=== PATIENT | male | born 1955 | race Caucasian/White ===

== ENCOUNTER 2023-05-12 13:13 | Emergency (ER) | payer OTHER, SELFPAY ==
[2023-05-12 13:14] VITALS: BP 160/93; PULSE 69; RESP 18; TEMP 36.7; O2SAT 95; BMI 30.8
--- NOTE | 2023-05-12 13:26 | CT_ITS ---
The [address] [address] Patient Name: GÓMEZ CORTES MRN: [id number] date: 1955 Sex: M Assigned Patient Location: ER Current Patient Location: ER Accession/Order Number: [id number] Exam Date: 05/12/2023 13:37 Report Date: 05/12/2023 14:21 At the request of: AMBIKA YI Procedure: CT thoracic spine wo con EXAMINATION: CT thoracic spine wo con, CT lumbar spine wo con HISTORY: pain, fall COMPARISON: No relevant comparison available. TECHNIQUE: Axial, Coronal, and Sagittal images were created without IV contrast. Dose reduction techniques were achieved by using automated exposure control and/or adjustment of mA and/or kV according to patient size and/or use of iterative reconstruction technique. FINDINGS: VERTEBRAL BODIES: Nondisplaced fracture of right transverse process of L1 with callus formation at the margins. FACET JOINTS: Moderate degenerative facet arthropathy involving most of lumbar spine; marked at its L4-5. No disruption or abnormal widening. DISCS: L3-4 moderate narrowing with large posterior disc-osteophyte complex causing marked central canal and moderate right foramen narrowing. L4-5 moderate narrowing with large posterior disc-osteophyte complex along with marked degenerative facet arthropathy causing marked central canal and bilateral foramen narrowing. L5-S1 mild diffuse disc bulging in combination with facet arthropathy causing moderate bilateral foramen narrowing. CENTRAL CANAL: No evidence of hemorrhage. PARASPINAL AREA: No visible mass. IMPRESSION: 1. Acute versus subacute nondisplaced fracture of L1 right transverse process. 2. Multilevel lumbar degenerative disc disease and facet arthropathy resulting in moderate marked central canal and foramen narrowing. 3. Multilevel mild degenerative changes of thoracic spine. Electronically authenticated by: KELL BLANDON Date: 05/12/2023 14:21
--- NOTE | 2023-05-12 13:26 | CT_ITS ---
The [address] [address] Patient Name: GÓMEZ CORTES MRN: [id number] date: 1955 Sex: M Assigned Patient Location: ER Current Patient Location: ER Accession/Order Number: [id number] Exam Date: 05/12/2023 13:37 Report Date: 05/12/2023 14:21 At the request of: AMBIKA YI Procedure: CT lumbar spine wo con EXAMINATION: CT thoracic spine wo con, CT lumbar spine wo con HISTORY: pain, fall COMPARISON: No relevant comparison available. TECHNIQUE: Axial, Coronal, and Sagittal images were created without IV contrast. Dose reduction techniques were achieved by using automated exposure control and/or adjustment of mA and/or kV according to patient size and/or use of iterative reconstruction technique. FINDINGS: VERTEBRAL BODIES: Nondisplaced fracture of right transverse process of L1 with callus formation at the margins. FACET JOINTS: Moderate degenerative facet arthropathy involving most of lumbar spine; marked at its L4-5. No disruption or abnormal widening. DISCS: L3-4 moderate narrowing with large posterior disc-osteophyte complex causing marked central canal and moderate right foramen narrowing. L4-5 moderate narrowing with large posterior disc-osteophyte complex along with marked degenerative facet arthropathy causing marked central canal and bilateral foramen narrowing. L5-S1 mild diffuse disc bulging in combination with facet arthropathy causing moderate bilateral foramen narrowing. CENTRAL CANAL: No evidence of hemorrhage. PARASPINAL AREA: No visible mass. IMPRESSION: 1. Acute versus subacute nondisplaced fracture of L1 right transverse process. 2. Multilevel lumbar degenerative disc disease and facet arthropathy resulting in moderate marked central canal and foramen narrowing. 3. Multilevel mild degenerative changes of thoracic spine. Electronically authenticated by: KELL BLANDON Date: 05/12/2023 14:21
--- NOTE | 2023-05-12 13:27 | ED.GENADUL1 ---
HPI - General Adult General Chief complaint: Fall Time Seen by Provider: 05/12/23 13:21 Source: patient Mode of arrival: ambulance Limitations: no limitations History of Present Illness HPI narrative: 68 year old male presents to the ED for pain to his lower back s/p fall today. He reports he was leaning over putting water into his refrigerator. When he stood back up he fell backwards, landing on his buttocks. He did strike his head on a wall. Denies LOC, vision changes, weakness, dizziness. He has frequent falls which he relates to the chronic N/T of his feet s/p chemotherapy in 1998. Denies fever, chills, N/V. Denies change in bowel and/or bladder control. Denies saddle anesthesia, urinary sx. Denies pain to his head, neck, chest, abdomen, extremities. Rates his pain 4/10 at this time. Reports fatigue which happens after all of his falls. He typically falls 2-3 times per week. He ambulates with a walker at home. Related Data Home Medications Medication Instructions Recorded Confirmed atorvastatin 10 mg tablet 10 mg PO .hs 05/12/23 05/12/23 citalopram 40 mg tablet 40 mg PO DAILY 05/12/23 05/12/23 meclizine 25 mg tablet 25 mg PO DAILY PRN dizziness 05/12/23 05/12/23 phenobarbital 32.4 mg tablet 32.4 mg PO Q12H 05/12/23 05/12/23 phenytoin sodium extended 100 mg 100 mg PO Q8H 05/12/23 05/12/23 capsule Allergies Allergy/AdvReac Type Severity Reaction Status Date / Time gabapentin Allergy Intermediate Verified 05/12/23 13:17 oxycodone [From OxyContin] Allergy Intermediate Verified 05/12/23 13:17 phenytoin [From Dilantin] Allergy Intermediate Verified 05/12/23 13:17 Review of Systems ROS Constitutional Reports: fatigue; Denies: fever or chills Eyes Denies: change in vision Ears, nose, mouth, and throat Denies: neck pain or difficulty swallowing Cardiovascular Denies: chest pain, palpitations or lightheadedness Respiratory Denies: shortness of breath or cough Gastrointestinal Denies: abdominal pain, nausea, vomiting or diarrhea Musculoskeletal Reports: back pain; Denies: neck pain, extremity pain or extremity swelling Integumentary/Breast Denies: rash, redness, skin pain, skin tenderness, sores or changes in skin color Neurological Denies: headache, numbness in extremities, weakness in extremities, dizziness, vertigo, confusion or slurred speech Exam Constitutional Vital Signs - 24 hr 05/12/23 13:14 05/12/23 15:03 Temperature 98.1 F Pulse Rate [Monitor] 69 67 Respiratory Rate 18 18 Blood Pressure [Right Arm] 160/93 H 153/85 H Pulse Oximetry 95 95 Oxygen Delivery Method Room Air Room Air Documenting provider has reviewed patient's vital signs: yes Common normals: no apparent distress and oriented x3 Exam limitations: no altered mental status General appearance: cooperative; not ill appearing and not frail appearing [facility] Common normals: normocephalic and head/scalp atraumatic Head and scalp: no Reyes's sign and no scalp tenderness Mouth: lip normal and tongue normal Throat: posterior oropharynx normal Eye Common normals: PERRL, EOMs intact bilaterally, conjunctivae normal and no scleral icterus Neck & C-Spine Common normals: full ROM and supple General: normal visual inspection and trachea midline; no tenderness and no tracheal deviation Cervical spine: cervical ROM normal; no pain with cervical ROM, no cervical spine tenderness, no paracervical muscle tenderness and no paracervical muscle spasm Chest Chest: symmetrical chest wall rise Respiratory Common normals: normal respiratory effort Cardio Common normals: regular rate GI Common normals: soft to palpation and non-tender Back & Pelvis Common normals: thoracic and lumbar spine normal to inspection Thoracic spine/upper back: paraspinal muscle tenderness; no thoracic spinal tenderness Lumbar spine/lower back: paraspinal muscle tenderness; no lumbar spinal tenderness Sacrum: no ecchymosis, no erythema and no tenderness Coccyx: no swelling and no tenderness Extremity Common normals: full ROM and normal capillary refill Neuro Common normals: oriented x3, CN's II-XII intact bilaterally and moves all extremities Sensorium/orientation: awake and alert Speech: speech normal Course Vital Signs Vital signs: Vital Signs Temperature 98.1 F 05/12/23 13:14 Pulse Rate 69 05/12/23 13:14 Respiratory Rate 18 05/12/23 13:14 Blood Pressure 160/93 H 05/12/23 13:14 Pulse Oximetry 95 06/22/23 13:14 Oxygen Delivery Method Room Air 05/12/23 13:14 Temperature 98.1 F 05/12/23 13:14 Pulse Rate 67 05/12/23 15:03 Respiratory Rate 18 05/12/23 15:03 Blood Pressure 153/85 H 05/12/23 15:03 Pulse Oximetry 95 05/12/23 15:03 Oxygen Delivery Method Room Air 05/12/23 15:03 Medical Decision Making MDM Narrative Medical decision making narrative: CT scans of the thoracic and lumbar spines were completed. Results showed an acute versus subacute nondisplaced fracture of L1 right transverse process; degenerative changes. Findings were discussed with the patient. He was given a copy of his imaging report. He was ambulatory with a walker in the ED prior to discharge. He has an orthopedist for follow up. He was encouraged to follow up with his orthopedist and pcp for a recheck, further evaluation and treatment. He reported he has medication for his discomfort at home. Imaging Data CT thoracic and lumbar spine: Radiologist's impression: Procedure:? CT lumbar spine wo con ? EXAMINATION: CT thoracic spine wo con, CT lumbar spine wo con ? HISTORY: pain, fall ? COMPARISON: No relevant comparison available. ? TECHNIQUE: Axial, Coronal, and Sagittal images were created without IV contrast. Dose reduction techniques were achieved by using automated exposure control and/or adjustment of mA and/or kV according to patient size and/or use ? of iterative reconstruction technique. ? FINDINGS: VERTEBRAL BODIES: Nondisplaced fracture of right transverse process of L1 with ? callus formation at the margins. FACET JOINTS: Moderate degenerative facet arthropathy involving most of lumbar ? spine; marked at its L4-5. No disruption or abnormal widening. DISCS: L3-4 moderate narrowing with large posterior disc-osteophyte complex causing marked central canal and moderate right foramen narrowing. L4-5 moderate narrowing with large posterior disc-osteophyte complex along with marked degenerative facet arthropathy causing marked central canal and bilateral foramen narrowing. L5-S1 mild diffuse disc bulging in combination with facet arthropathy causing moderate bilateral foramen narrowing. CENTRAL CANAL: No evidence of hemorrhage. PARASPINAL AREA: No visible mass. ? IMPRESSION: ? 1. Acute versus subacute nondisplaced fracture of L1 right transverse process. 2. Multilevel lumbar degenerative disc disease and facet arthropathy resulting ? in moderate marked central canal and foramen narrowing. 3. Multilevel mild degenerative changes of thoracic spine. ? ? Electronically authenticated by: LOLA BLANDON ? Date: 05/12/2023? 14:21 Procedure:? CT thoracic spine wo con ? EXAMINATION: CT thoracic spine wo con, CT lumbar spine wo con ? HISTORY: pain, fall ? COMPARISON: No relevant comparison available. ? TECHNIQUE: Axial, Coronal, and Sagittal images were created without IV contrast. Dose reduction techniques were achieved by using automated exposure control and/or adjustment of mA and/or kV according to patient size and/or use ? of iterative reconstruction technique. ? FINDINGS: VERTEBRAL BODIES: Nondisplaced fracture of right transverse process of L1 with ? callus formation at the margins. FACET JOINTS: Moderate degenerative facet arthropathy involving most of lumbar ? spine; marked at its L4-5. No disruption or abnormal widening. DISCS: L3-4 moderate narrowing with large posterior disc-osteophyte complex causing marked central canal and moderate right foramen narrowing. L4-5 moderate narrowing with large posterior disc-osteophyte complex along with marked degenerative facet arthropathy causing marked central canal and bilateral foramen narrowing. L5-S1 mild diffuse disc bulging in combination with facet arthropathy causing moderate bilateral foramen narrowing. CENTRAL CANAL: No evidence of hemorrhage. PARASPINAL AREA: No visible mass. ? IMPRESSION: ? 1. Acute versus subacute nondisplaced fracture of L1 right transverse process. 2. Multilevel lumbar degenerative disc disease and facet arthropathy resulting ? in moderate marked central canal and foramen narrowing. 3. Multilevel mild degenerative changes of thoracic spine. ? ? Electronically authenticated by: LOLA BLANDON ? Date: 05/12/2023? 14:21 Discharge Plan Discharge Chief Complaint: Fall Clinical Impression: Back pain, Fall, Lumbar transverse process fracture Patient Disposition: Home, Self-Care Time of Disposition Decision: 14:51 Condition: Good Mode of Transportation: Private Vehicle Prescriptions / Home Meds: No Action atorvastatin 10 mg tablet 10 mg PO .hs citalopram 40 mg tablet 40 mg PO DAILY meclizine 25 mg tablet 25 mg PO DAILY PRN (Reason: dizziness) phenobarbital 32.4 mg tablet 32.4 mg PO Q12H phenytoin sodium extended 100 mg capsule 100 mg PO Q8H Instructions: Acute Low Back Pain (ED), Transverse Process Fracture (ED) Additional Instructions: Follow up with your orthopedist: Dr. Arcadio Zaldivar. Stand Alone Forms: Portal Instructions Referrals: Jignesh Manjarrez MD [Primary Care Provider] - 1 week Discharge Date/Time: 05/12/23 15:13
--- NOTE | 2023-05-12 14:40 | PC.NURSE ---
pt ambulated down hallway and back from room with walkeer pt states he uses walker at home
[2023-05-12 15:03] VITALS: BP 153/85; PULSE 67; RESP 18; O2SAT 95
== END 2023-05-12 15:13 | disposition home or self-care (01) ==
PROVIDERS: Emergency Provider Emergency Medicine; PCP Family Medicine
DX: S32.019A Unspecified fracture of first lumbar vertebra, initial encounter for closed fracture (principal); W19.XXXA Unspecified fall, initial encounter; M54.9 Dorsalgia, unspecified; Z79.899 Other long term (current) drug therapy; Z91.81 History of falling
CPT/HCPCS: 72128; 72131; 99284

== ENCOUNTER 2023-05-14 18:54 | Emergency (ER) | payer OTHER, SELFPAY ==
[2023-05-14 18:56] VITALS: BP 157/86; PULSE 66; RESP 20; TEMP 37.1; O2SAT 92; BMI 37.0
--- NOTE | 2023-05-14 19:06 | XR_ITS ---
The [address] [address] Patient Name: GÓMEZ CORTES MRN: [id number] date: 1955 Sex: M Assigned Patient Location: ER Current Patient Location: ED.MAIN Accession/Order Number: [id number] Exam Date: 05/14/2023 19:35 Report Date: 05/14/2023 20:43 At the request of: PORTER SCOTT Procedure: XR clavicle RT IMAGES REVIEWED: XR shoulder RT min 2V, XR clavicle RT COMPARISON: None available. CLINICAL INDICATION: right shoulder pain, fall FINDINGS/IMPRESSION: 1. No evidence of acute osseous abnormality of the right shoulder or right clavicle. 2. Osteopenia. Mild-moderate degenerative change of the right AC joint and right glenohumeral joint. Electronically authenticated by: ORLANDO DICKINSON Date: 05/14/2023 20:43
--- NOTE | 2023-05-14 19:06 | XR_ITS ---
The [address] [address] Patient Name: GÓMEZ CORTES MRN: [id number] date: 1955 Sex: M Assigned Patient Location: ER Current Patient Location: ED.MAIN Accession/Order Number: [id number] Exam Date: 05/14/2023 19:35 Report Date: 05/14/2023 20:43 At the request of: PORTER SCOTT Procedure: XR shoulder RT min 2V IMAGES REVIEWED: XR shoulder RT min 2V, XR clavicle RT COMPARISON: None available. CLINICAL INDICATION: right shoulder pain, fall FINDINGS/IMPRESSION: 1. No evidence of acute osseous abnormality of the right shoulder or right clavicle. 2. Osteopenia. Mild-moderate degenerative change of the right AC joint and right glenohumeral joint. Electronically authenticated by: ORLANDO DICKINSON Date: 05/14/2023 20:43
[2023-05-14] MEDS: IBUPROFEN 400 MG TABLET 800 MG PO (20:05)
--- NOTE | 2023-05-14 20:14 | PC.NURSE ---
Patient holding arm across his chest. C/O right shoulder pain. Pulse palpated circulation and sensation intact.
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
[2023-05-14 20:53] VITALS: BP 135/76; PULSE 68; RESP 16; O2SAT 95
== END 2023-05-14 21:18 | disposition home or self-care (01) ==
PROVIDERS: Emergency Provider Emergency Medicine; PCP Family Medicine
DX: M25.511 Pain in right shoulder (principal); Z79.899 Other long term (current) drug therapy; Z87.891 Personal history of nicotine dependence
CPT/HCPCS: 73000; 73030; 99284

== ENCOUNTER 2023-06-13 15:04 | Outpatient (OUT) | payer OTHER, SELFPAY ==
--- NOTE | 2023-06-13 | MR_ITS ---
The [address] [address] Patient Name: GÓMEZ CORTES MRN: [id number] date: 1955 Sex: M Assigned Patient Location: MRI Current Patient Location: Accession/Order Number: [id number] Exam Date: 06/13/2023 15:10 Report Date: 06/14/2023 11:42 At the request of: IMELDA THOMPSON Procedure: MR lumbar spine wo con EXAM: MR lumbar spine wo con REASON FOR EXAM: ACUTE MIDLINE LOW BACK PAIN WITHOUT SCIATICA. TECHNIQUE: Multiplanar, multisequence imaging of the lumbar spine was performed without contrast COMPARISON: CT scan 05/12/2023. FINDINGS: 5 nonrib-bearing lumbar vertebrae. Normal lumbar lordosis without significant listhesis. Vertebral body heights are maintained. No acute or aggressive osseous abnormality identified. The visualized bony pelvis is congruent with mild osteoarthritis the sacroiliac joints. Limited evaluation of the abdominopelvic viscera is without acute or suspicious abnormality. L1-L2: Mild broad-based disc bulge with flattening the ventral thecal sac. No severe spinal canal stenosis. No significant neural foraminal stenosis. L2-L3: Minimal broad-based disc bulge with flattening of ventral thecal sac. No severe spinal canal or neural foraminal stenosis. L3-L4: Diffuse loss of normal intervertebral disc space height and signal. Broad-based disc bulge with flattening of ventral thecal sac. Fissure is noted. Mild to moderate spinal canal stenosis when combined with ligamentum flavum hypertrophy. There is more focal right foraminal lateral protrusion. Moderate to severe bilateral neural foraminal stenosis, right greater than left secondary to disc osteophyte complex and facet arthropathy. L4-L5: Broad-based disc bulge with minimal spinal canal stenosis. Moderate to severe bilateral neural foraminal stenosis secondary to disc osteophyte complex and facet arthropathy. L5-S1: Broad-based disc bulge with mild spinal canal stenosis. There is possible mild compression of the traversing left S1 nerve root. Severe bilateral neural foraminal stenosis secondary to disc osteophyte complex and facet arthropathy. MR/MR lumbar spine wo con IMPRESSION: 1. Moderate to severe multilevel degenerative disc disease and facet arthropathy, most significant at the L3-L4 through L5-S1 levels as described above. Electronically authenticated by: KATHARINE DORMAN Date: 06/14/2023 11:42
== END 2023-06-13 15:05 | disposition home or self-care (01) ==
LOC: MRI 15:04
PROVIDERS: PCP Family Medicine; Visit Provider Personal Emergency Response Attendant
DX: M54.50 Low back pain, unspecified (principal)
CPT/HCPCS: 72148

== ENCOUNTER 2023-06-20 14:00 | Emergency (ER) | payer OTHER, SELFPAY ==
[2023-06-20 14:04] VITALS: BP 122/78; PULSE 74; RESP 20; TEMP 36.7; O2SAT 92; BMI 36.8
--- NOTE | 2023-06-20 14:06 | XR_ITS ---
The [address] [address] Patient Name: GÓMEZ CORTES MRN: [id number] date: 1955 Sex: M Assigned Patient Location: ER Current Patient Location: ER Accession/Order Number: [id number] Exam Date: 06/20/2023 14:20 Report Date: 06/20/2023 14:44 At the request of: SCARLET GREGORY Procedure: XR chest 1V EXAMINATION: XR chest 1V HISTORY: fall COMPARISON: XR chest 07/21/2021 FINDINGS: LUNGS: Dense opacities partially obscuring the right lung base, greatest within the lateral right lung base. Numerous surgical clips projecting over right hilum. VASCULATURE: No increased pulmonary vasculature. PLEURA: No pneumothorax, effusion, or pleural thickening. CARDIAC: No cardiomegaly or cardiac silhouette abnormality. MEDIASTINUM: No visible mass or adenopathy. BONES: Mechanical fusion of lower cervical spine. Screw within left glenoid rim from prior repair. OTHER: Negative. XR/XR chest 1V IMPRESSION: 1. Partial opacification right lung base; pneumonia versus pleural effusion versus mass versus atelectasis. Consider follow-up CT chest with IV contrast for further evaluation. Electronically authenticated by: KELL BLANDON Date: 06/20/2023 14:44
--- NOTE | 2023-06-20 14:06 | CT_ITS ---
[address] [address] Patient Name: GÓMEZ CORTES MRN: [id number] date: 1955 Sex: M Assigned Patient Location: ER Current Patient Location: ER Accession/Order Number: [id number] Exam Date: 06/20/2023 14:43 Report Date: 06/20/2023 15:11 At the request of: SCARLET GREGORY Procedure: CT cervical spine wo con EXAM: CT cervical spine wo con; [id number] REASON FOR EXAM: fall COMPARISON: CT cervical spine 06/16/2021. TECHNIQUE: Helical CT images of the cervical spine were obtained without contrast. Multiplanar reformats generated at the scanner. Dose reduction technique used: Automated exposure control and/or adjustment of the mA and/or kV according to patient size and/or use of iterative reconstruction technique. FINDINGS: Osseous: -No acute fracture or traumatic spondylolisthesis. -Posterior cervical fusion from C3 through C5 and anterior cervical fusion from C5 through C7. The fusion hardware is intact and similar in alignment compared with 06/16/2021. Lucency at the bone hardware interface along the left posterior fusion screw at C5 (series 7 image 29), similar compared with 06/16/2021. -Moderate spondylosis at the unfused C2-C3 and C7-T1, similar. 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 -No suspicious osseous lesion. Paraspinous soft tissues: -No acute abnormality. Visualized lung apices: -Clear. -No pneumothorax within the [id number]-apiv. CT/CT cervical spine wo con IMPRESSION: 1. No acute traumatic abnormality of the cervical spine. 2. Anterior and posterior cervical fusion hardware is intact and similar compared with 2020. Electronically authenticated by: JEANINE DUKE Date: 06/20/2023 15:11
--- NOTE | 2023-06-20 14:07 | CT_ITS ---
The [address] [address] Patient Name: GÓMEZ CORTES MRN: [id number] date: 1955 Sex: M Assigned Patient Location: ER Current Patient Location: Accession/Order Number: [id number] Exam Date: 06/20/2023 14:43 Report Date: 06/20/2023 15:04 At the request of: SCARLET GREGORY Procedure: CT head/brain wo con EXAM: CT head/brain wo con CLINICAL INDICATION: fall COMPARISON: CT head 06/16/2021. TECHNIQUE: Axial CT images of the brain were obtained without contrast. Coronal and sagittal reformats were obtained. Dose reduction techniques were achieved by using automated exposure control and/or adjustment of mA and/or kV according to patient size and/or use of iterative reconstruction technique. FINDINGS: No intracranial hemorrhage, extra-axial fluid collection, hydrocephalus, midline shift, or acute large vessel territory infarction. No other mass effect. Patchy periventricular and subcortical hypoattenuation is likely on the basis of chronic microvascular angiopathic changes. Mild to moderate symmetric global volume loss without lobar predominance. Commensurate prominence of the ventricular system. Basal cisterns are patent. No calvarial fracture. Normal soft tissues. Paranasal sinuses and mastoid air cells are well-aerated. CT/CT head/brain wo con IMPRESSION: No acute intracranial process. No substantial change since 06/16/2021. Electronically authenticated by: JERAMY SOMMERS Date: 06/20/2023 15:04
--- NOTE | 2023-06-20 14:14 | PC.NURSE ---
pt placed in c-collar at this time. pt denies any symptoms besides upper back pain from hitting toilet paper roll. denies LOC. AxOx4 at this time
[2023-06-20 14:22] LABS: Basophils Absolute Auto 0.1 10^3/uL (0.0-0.1); Basophils Percent Auto 0.9 % (0.2-2.0); Eosinophils Absolute Auto 0.3 10^3/uL (0.0-0.7); Eosinophils Percent Auto 4.7 % (0.9-7.0); Hematocrit 42.2 % (42.0-54.0); Hemoglobin 14.3 g/dL (14.0-18.0); Immature Granulocytes Abs Auto 0.03 10^3/uL (0.00-0.03); Immature Granulocytes Pct Auto 0.5 % (0.0-0.5); Lymphocytes Percent Auto 15.6 % (20.5-60.0); Mean Corpuscular HGB Conc 33.9 g/dL (29.9-35.2); Mean Corpuscular Volume 97.5 fL (80.0-94.0); Mean Platelet Volume 9.7 fL (9.5-13.5); Monocytes Absolute Auto 0.5 10^3/uL (0.3-0.8); Monocytes Percent Auto 8.1 % (1.7-12.0); Neutrophils Absolute Auto 4.4 10^3/uL (1.4-6.5); Neutrophils Percent Auto 70.2 % (43.0-75.0); Platelet Count 186 10^3/uL (150-450); Red Blood Count 4.33 10^6/uL (4.70-6.10); Red Cell Distribution Width 12.8 % (11.0-15.0); White Blood Count 6.3 10^3/uL (4.0-11.0)
[2023-06-20 14:42] LABS: Alanine Aminotransferase 24 U/L (16-63); Albumin Globulin Ratio 0.7; Albumin Level 3.4 g/dL (3.4-5.0); Alkaline Phosphatase 196 U/L (46-116); Aspartate Amino Transferase 20 U/L (15-37); BUN Creatinine Ratio 18.8; Bilirubin Total 0.4 mg/dL (0.2-1.0); Calcium 8.7 mg/dL (8.5-10.1); Carbon Dioxide 26.9 mmol/L (21.0-32.0); Chloride 100 mmol/L (98-107); Estimated GFR (African America >60 (>=60); Estimated GFR (Non-African Ame >60 (>=60); Globulin 4.7 g/dL; Glucose 136 mg/dL (74-106); Potassium 3.9 mmol/L (3.5-5.1); Sodium 133 mmol/L (136-145); Total Protein 8.1 g/dL (6.4-8.2)
[2023-06-20 14:43] LABS: Creatine Kinase 57 U/L (39-308); Troponin I High Sensitivity 6.8 pg/mL (4.0-76.1)
--- NOTE | 2023-06-20 16:44 | ED.GENADUL1 ---
HPI - General Adult General Chief complaint: Fall Stated complaint: FALL- LOWER BACK PAIN/L HIP/SHOULDER BLADES Time Seen by Provider: 06/20/23 14:06 Source: patient Mode of arrival: ambulance Limitations: no limitations History of Present Illness HPI narrative: Patient is a 68-year-old male who is coming in by EMS after a mechanical fall at home. patient uses a walker. Patient falls frequently at home. Patient stated that his feet got caught up in a rug at home, and patient twisting and fell backwards hitting the back into a wall hitting the back of his head into the wall as well. Patient landed slightly on his left hip as well and left elbow. Patient's complaining of left elbow pain, left hip pain, headache, close head injury, and acute on chronic neck pain. Patient has his cervical spine fused. Patient had a mechanical fall, he did not pass out. No loss of consciousness. Patient is not on any blood thinner. Patient arrived in no cervical collar by EMS staff, cervical collar was placed when patient was placed into room 6. Patient has no chest pain or shortness of breath. Patient's pain to his left elbow and left hip have improved since he was at home. Patient had a hard time getting off the ground at home and this is why called EMS. Patient was at home with . . All systems are negative except as noted/marked. All systems reviewed and otherwise negative. . Nurses note and vital signs reviewed and patient is not hypoxic. General: The patient appears well and in no apparent distress. Patient is resting comfortably on cart. Patient is not toxic, lethargic, or listless Skin: Warm, dry, no pallor noted. There is no rash noted. No petechiae, purpura. minor abrasion to left elbow, no skin tears or laceration. Head: Normocephalic, atraumatic, patient was placed in a cervical collar. Eye: Normal conjunctiva, no drainage, EOMI. PERRL Ears, Nose, Mouth, and Throat: oral mucosa is moist. Nares patent. Mouth without vesicles. Cardiovascular: Regular Rate and Rhythm, no murmur, gallop, rub Respiratory: Patient is in no distress, no accessory muscle use, lungs are clear to auscultation, no wheezing, rales or rhonchi Back: non-tender, no CVA tenderness bilaterally to percussion. No CT LS midline pain GI: soft, no tenderness to palpation, no masses appreciated. No rebound, guarding, or rigidity noted. No flank pain bilateral, No distention Musculoskeletal: Patient has full range of motion of all of the extremities Including his left elbow and left hip with minimal pain.patient has full flexion and extension supination pronation to his left elbow. Patient has minimal pain with internal/external rotation of his left hip, full flexion-extension with minimal pain. No x-rays indicated. Patient states his pain is much better now than what it was a home. No intervention has been done except time. Otherwise no motor, sensory, or focal neurological deficits Neurological: A&O x3, normal speech Psychiatric: Cooperative Related Data Home Medications Medication Instructions Recorded Confirmed atorvastatin 10 mg tablet 10 mg PO .hs 05/12/23 05/12/23 citalopram 40 mg tablet 40 mg PO DAILY 05/12/23 05/12/23 meclizine 25 mg tablet 25 mg PO DAILY PRN dizziness 05/12/23 05/12/23 phenobarbital 32.4 mg tablet 32.4 mg PO Q12H 05/12/23 05/12/23 phenytoin sodium extended 100 mg 100 mg PO Q8H 05/12/23 05/12/23 capsule Allergies Allergy/AdvReac Type Severity Reaction Status Date / Time gabapentin Allergy Intermediate Verified 05/12/23 13:17 oxycodone [From OxyContin] Allergy Intermediate Verified 05/12/23 13:17 phenytoin [From Dilantin] Allergy Intermediate Verified 05/12/23 13:17 PFSH PFSH Social History Smoking status: Former smoker Exam Constitutional Vital Signs, click to edit/add: Last Vital Signs Temp 98.1 F 06/20/23 14:04 Pulse 74 06/20/23 14:04 Resp 20 06/20/23 14:04 BP 122/78 06/20/23 14:04 Pulse Ox 92 L 06/20/23 14:04 O2 Del Method Room Air 06/20/23 14:04 Course Vital Signs Vital signs: Vital Signs Temperature 98.1 F 06/20/23 14:04 Pulse Rate 74 06/20/23 14:04 Respiratory Rate 20 06/20/23 14:04 Blood Pressure 122/78 06/20/23 14:04 Pulse Oximetry 92 L 06/20/23 14:04 Oxygen Delivery Method Room Air 06/20/23 14:04 Temperature 98.1 F 06/20/23 14:04 Pulse Rate 74 06/20/23 14:04 Respiratory Rate 20 06/20/23 14:04 Blood Pressure 122/78 06/20/23 14:04 Pulse Oximetry 92 L 06/20/23 14:04 Oxygen Delivery Method Room Air 06/20/23 14:04 Medical Decision Making MDM Narrative Medical decision making narrative: Patient ambulated well at discharge with a walker. Patient and understand any follow-up with PCP in office staff for additional help with possible placement into assisted living secondary to a fall risk at home. CT of the brain, cervical spine showed no acute findings. Patient's cardiac workup shows no acute findings. Patient did not require any x-ray to left hip or left elbow because he had full range of motion of those joints with minimal pain. Patient did feel better in the Emergency Room than he did when he is initially arrived in the Emergency Room compared at home and had fallen. No questions at discharge. Patient did not require any pain medication in the Emergency Room today. Lab Data Lab results reviewed: Yes I reviewed the patient's lab results Labs: Lab Results 06/20/23 Range/Units 14:10 WBC 6.3 (4.0-11.0) 10^3/uL RBC 4.33 L (4.70-6.10) 10^6/uL Hgb 14.3 (14.0-18.0) g/dL Hct 42.2 (42.0-54.0) % MCV 97.5 H (80.0-94.0) fL MCH 33.0 (25.9-34.0) pg MCHC 33.9 (29.9-35.2) g/dL RDW 12.8 (11.0-15.0) % Plt Count 186 (150-450) 10^3/uL MPV 9.7 (9.5-13.5) fL Neut % (Auto) 70.2 (43.0-75.0) % Lymph % (Auto) 15.6 L (20.5-60.0) % [place] % (Auto) 8.1 (1.7-12.0) % Eos % (Auto) 4.7 (0.9-7.0) % Baso % (Auto) 0.9 (0.2-2.0) % Neut # (Auto) 4.4 (1.4-6.5) 10^3/uL Lymph # (Auto) 1.0 L (1.2-3.8) 10^3/uL [place] # (Auto) 0.5 (0.3-0.8) 10^3/uL Eos # (Auto) 0.3 (0.0-0.7) 10^3/uL Baso # (Auto) 0.1 (0.0-0.1) 10^3/uL Abs Immat Gran (auto) 0.03 (0.00-0.03) 10^3/uL Imm/Tot Granulo (auto) 0.5 (0.0-0.5) % Sodium 133 L (136-145) mmol/L Potassium 3.9 (3.5-5.1) mmol/L Chloride 100 (98-107) mmol/L Carbon Dioxide 26.9 (21.0-32.0) mmol/L Anion Gap 10.0 BUN 16.0 (7.0-18.0) mg/dL Creatinine 0.85 (0.70-1.30) mg/dL Est GFR ( Amer) >60 (>=60) Est GFR (Non-Af Amer) >60 (>=60) BUN/Creatinine Ratio 18.8 Glucose 136 H (74-106) mg/dL Calcium 8.7 (8.5-10.1) mg/dL Magnesium 2.0 (1.8-2.4) mg/dL Total Bilirubin 0.4 (0.2-1.0) mg/dL AST 20 (15-37) U/L ALT 24 (16-63) U/L Alkaline Phosphatase 196 H (46-116) U/L Total Creatine Kinase 57 (39-308) U/L Troponin I High Sens 6.8 (4.0-76.1) pg/mL Total Protein 8.1 (6.4-8.2) g/dL Albumin 3.4 (3.4-5.0) g/dL Globulin 4.7 g/dL Albumin/Globulin Ratio 0.7 Lipase 94.0 (73.0-393.0) U/L Imaging Data CT scan - head: My impression: CT of the head, cervical spine, chest x-ray show no acute abnormality. Please see the official report. Discharge Plan Discharge Chief Complaint: Fall Clinical Impression: Back pain, Cervical pain (neck), Fall, Contusion of elbow, left, Contusion of hip, left Patient Disposition: Home, Self-Care Condition: Good Prescriptions / Home Meds: No Action atorvastatin 10 mg tablet 10 mg PO .hs citalopram 40 mg tablet 40 mg PO DAILY meclizine 25 mg tablet 25 mg PO DAILY PRN (Reason: dizziness) phenobarbital 32.4 mg tablet 32.4 mg PO Q12H phenytoin sodium extended 100 mg capsule 100 mg PO Q8H Instructions: Contusion in Adults (ED), Back Pain (ED), Fall Prevention (ED), Hip Contusion (ED), Neck Pain (ED) Additional Instructions: uses her walker. Be careful with ambulation and gait as discussed with you and your . Follow up with PCP Dr. Olguin and his office staff to help with insurance, possible placement in assisted living to make sure that you are safe and your is safe. Stand Alone Forms: Portal Instructions Referrals: Jignesh Manjarrez MD [Primary Care Provider] - 1 week Discharge Date/Time: 06/20/23 17:04
== END 2023-06-20 17:04 | disposition home or self-care (01) ==
PROVIDERS: Emergency Provider Emergency Medicine; PCP Family Medicine
DX: S50.02XA Contusion of left elbow, initial encounter (principal); S70.02XA Contusion of left hip, initial encounter; M54.2 Cervicalgia; M54.9 Dorsalgia, unspecified; W01.198A Fall on same level from slipping, tripping and stumbling with subsequent striking against other object, initial encounter; Z79.899 Other long term (current) drug therapy; Z87.891 Personal history of nicotine dependence
CPT/HCPCS: 36415; 70450; 71045; 72125; 80053; 81003; 82550; 83690; 83735; 84484; 85025; 96374; 99285

== ENCOUNTER 2023-09-01 17:02 | Emergency (ER) | payer OTHER, SELFPAY ==
[2023-09-01] VITALS (25 sets, daily range): BP systolic 110–132; BP diastolic 64–74; PULSE 67–89; RESP 12–24; TEMP 37.2; O2SAT 91–100; BMI 37.5
--- NOTE | 2023-09-01 17:07 | CT_ITS ---
[address] [address] Patient Name: GÓMEZ CORTES MRN: [id number] date: 1955 Sex: M Assigned Patient Location: ER Current Patient Location: Accession/Order Number: [id number] Exam Date: 09/01/2023 18:12 Report Date: 09/01/2023 18:44 At the request of: TARSHA COLE Procedure: CT angio chest EXAM: CT pulmonary angiogram of the chest using 98 mL of IV iodinated contrast. 3-D imaging was performed. Dose reduction technique used: Automated exposure control and/or adjustment of the mA and/or kV according to patient size and/or use of iterative reconstruction technique. REASON FOR EXAM: PE, shortness of breath COMPARISON: CT scan dated 06/09/2022 FINDINGS: No pulmonary emboli. No aortic dissection. No pneumothorax. No acute airspace opacities. No pleural effusion. No acute fractures. No concerning pulmonary nodules. No definite lymphadenopathy in the chest. Small amount scarring in the right mid and lower lung. Coronary atherosclerotic calcifications. Anterior mediastinal surgical clips. Mildly prominent right hilar lymph nodes may be reactive. Remainder unremarkable. CT/CT angio chest IMPRESSION: No pulmonary embolism or acute abnormalities in chest. Electronically authenticated by: CHELLE ROSARIO Date: 09/01/2023 18:44
--- NOTE | 2023-09-01 17:10 | ED.GENADUL1 ---
HPI - General Adult General Chief complaint: Chest Pain Stated complaint: chest pain Time Seen by Provider: 09/01/23 17:07 Source: patient Mode of arrival: ambulance History of Present Illness HPI narrative: patient is a 68-year-old male who presents to the emergency department by ambulance for the evaluation of shortness of breath that began abruptly after carrying a load of laundry up his stairs at his apartment complex. He states after walking to the top of the stairs carrying laundry, he felt warmth and discomfort in his chest, he thought that his sugar might be low so he ate a honey bun and drank a root beer. EMS was dispatched, patient states he feels wiped out. He has a remote history of cancer and chemotherapy, he does not currently have a port receive any cancer treatment. He denies any history of heart attack, chronic obstructive pulmonary disease, emphysema. He reports a family history of blood clots. He has chronic swelling to his lower extremities, worse on the right side. He denies any recent illness, fevers or upper respiratory symptoms. He reports improvement of his symptoms at this time Related Data Home Medications Medication Instructions Recorded Confirmed atorvastatin 10 mg tablet 10 mg PO .hs 05/12/23 05/12/23 citalopram 40 mg tablet 40 mg PO DAILY 05/12/23 05/12/23 meclizine 25 mg tablet 25 mg PO DAILY PRN dizziness 05/12/23 05/12/23 phenobarbital 32.4 mg tablet 32.4 mg PO Q12H 05/12/23 05/12/23 phenytoin sodium extended 100 mg 100 mg PO Q8H 05/12/23 05/12/23 capsule Allergies Allergy/AdvReac Type Severity Reaction Status Date / Time gabapentin Allergy Intermediate Verified 05/12/23 13:17 oxycodone [From OxyContin] Allergy Intermediate Verified 05/12/23 13:17 phenytoin [From Dilantin] Allergy Intermediate Verified 05/12/23 13:17 Review of Systems ROS Constitutional Denies: fever or chills Ears, nose, mouth, and throat Denies: throat pain Cardiovascular Reports: chest pain Respiratory Reports: shortness of breath; Denies: cough Gastrointestinal Denies: abdominal pain, nausea or vomiting Musculoskeletal Denies: back pain Integumentary/Breast Denies: rash Neurological Denies: headache Hematologic/Lymphatic Denies: easy bruising PFSH PFSH Social History Smoking status: Former smoker Exam Narrative Exam Narrative: Gen.: Awake, alert, in no distress Head: Normocephalic, atraumatic ENT: Moist mucous membranes Respiratory: No respiratory distress, lungs clear bilaterally; no wheezing or rhonchi. Patient speaks in full sentences, very talkative Cardio: Regular rate and rhythm Extremities: Moves extremities equally, no pitting edema Psych: Normal mood and affect Neuro: No focal neuro deficit Skin: Warm, dry, intact Constitutional Vital Signs, click to edit/add: Last Vital Signs Temp 99.0 F 09/01/23 17:03 Pulse 72 09/01/23 19:40 Resp 22 09/01/23 19:40 BP 126/69 09/01/23 19:30 Pulse Ox 95 09/01/23 19:40 O2 Del Method Room Air 09/01/23 17:03 Course Vital Signs Vital signs: Vital Signs Temperature 99.0 F 09/01/23 17:03 Pulse Rate 72 09/01/23 17:03 Respiratory Rate 18 09/01/23 17:03 Blood Pressure 110/69 09/01/23 17:03 Pulse Oximetry 97 09/01/23 17:03 Oxygen Delivery Method Room Air 09/01/23 17:03 Temperature 99.0 F 09/01/23 17:03 Pulse Rate 72 09/01/23 19:40 Respiratory Rate 22 09/01/23 19:40 Blood Pressure 126/69 09/01/23 19:30 Pulse Oximetry 95 09/01/23 19:40 Oxygen Delivery Method Room Air 09/01/23 17:03 Medical Decision Making MDM Narrative Medical decision making narrative: patient with no significant complaints of chest pain in the Emergency Room. EKG, lab studies are unremarkable. CT angioma of the chest was performed with no evidence of PE or other acute process. Repeat troponin was obtained and the patient is resting comfortably, 2nd troponin is normal. Patient was evaluated by attending physician and he stated that if the 2nd troponin was normal he would like to go home. I reevaluated the patient after the 2nd troponin came back normal, patient states he would like to go home and he will follow-up with his PCP. He is resting comfortably with stable vital signs. He had no crushing chest pain, diaphoresis, nausea or other worrisome symptoms associated with the shortness of breath that he had after exerting himself. He will follow closely with his PCP and return to the Emergency Room if symptoms change or worsen Medical Records Medical records reviewed: Yes I reviewed the patient's medical records Lab Data Lab results reviewed: Yes I reviewed the patient's lab results Labs: Lab Results 09/01/23 09/01/23 Range/Units 17:30 19:22 WBC 5.4 (4.0-11.0) 10^3/uL RBC 4.00 L (4.70-6.10) 10^6/uL Hgb 13.2 L (14.0-18.0) g/dL Hct 39.8 L (42.0-54.0) % MCV 99.5 H (80.0-94.0) fL MCH 33.0 (25.9-34.0) pg MCHC 33.2 (29.9-35.2) g/dL RDW 12.8 (11.0-15.0) % Plt Count 175 (150-450) 10^3/uL MPV 9.8 (9.5-13.5) fL Neut % (Auto) 67.0 (43.0-75.0) % Lymph % (Auto) 16.1 L (20.5-60.0) % [place] % (Auto) 10.8 (1.7-12.0) % Eos % (Auto) 4.8 (0.9-7.0) % Baso % (Auto) 0.9 (0.2-2.0) % Neut # (Auto) 3.6 (1.4-6.5) 10^3/uL Lymph # (Auto) 0.9 L (1.2-3.8) 10^3/uL [place] # (Auto) 0.6 (0.3-0.8) 10^3/uL Eos # (Auto) 0.3 (0.0-0.7) 10^3/uL Baso # (Auto) 0.1 (0.0-0.1) 10^3/uL Abs Immat Gran (auto) 0.02 (0.00-0.03) 10^3/uL Imm/Tot Granulo (auto) 0.4 (0.0-0.5) % PT 10.5 (9.0-11.6) sec INR 0.99 APTT 29.6 (22.3-36.2) sec Sodium 137 (136-145) mmol/L Potassium 3.8 (3.5-5.1) mmol/L Chloride 104 (98-107) mmol/L Carbon Dioxide 25.4 (21.0-32.0) mmol/L Anion Gap 11.4 BUN 13.0 (7.0-18.0) mg/dL Creatinine 1.00 (0.70-1.30) mg/dL Est GFR ( Amer) >60 (>=60) Est GFR (Non-Af Amer) >60 (>=60) BUN/Creatinine Ratio 13.0 Glucose 114 H (74-106) mg/dL Calcium 7.6 L (8.5-10.1) mg/dL Total Bilirubin 0.2 (0.2-1.0) mg/dL AST 21 (15-37) U/L ALT 27 (16-63) U/L Alkaline Phosphatase 159 H (46-116) U/L Troponin I High Sens 5.9 5.3 (4.0-76.1) pg/mL NT-Pro-B Natriuret Pep 45.0 (<=900.0) pg/mL Total Protein 7.3 (6.4-8.2) g/dL Albumin 3.3 L (3.4-5.0) g/dL Globulin 4.0 g/dL Albumin/Globulin Ratio 0.[address] scan - chest: Attestation: I have reviewed the pertinent imaging results. Radiologist's impression: Procedure: CT angio chest EXAM: CT pulmonary angiogram of the chest using 98 mL of IV iodinated contrast. 3-D imaging was performed. Dose reduction technique used: Automated exposure control and/or adjustment of the mA and/or kV according to patient size and/or use of iterative reconstruction technique. REASON FOR EXAM: PE, shortness of breath COMPARISON: CT scan dated 06/09/2022 FINDINGS: No pulmonary emboli. No aortic dissection. No pneumothorax. No acute airspace opacities. No pleural effusion. No acute fractures. No concerning pulmonary nodules. No definite lymphadenopathy in the chest. Small amount scarring in the right mid and lower lung. Coronary atherosclerotic calcifications. Anterior mediastinal surgical clips. Mildly prominent right hilar lymph nodes may be reactive. Remainder unremarkable. IMPRESSION: No pulmonary embolism or acute abnormalities in chest. Electronically authenticated by: CHELLE ROSARIO Date: 09/01/2023 18:44 ECG Data Attestation: I personally reviewed and interpreted this ECG as follows: (normal sinus rhythm at a rate of sixty-nine, first-degree AV block noted with no acute ST elevation or ectopy. Mild artifact noted. EKG reviewed by attending physician) Discharge Plan Discharge Chief Complaint: Chest Pain Clinical Impression: Exertional dyspnea Patient Disposition: Home, Self-Care Time of Disposition Decision: 20:23 Condition: Good Prescriptions / Home Meds: No Action atorvastatin 10 mg tablet 10 mg PO .hs citalopram 40 mg tablet 40 mg PO DAILY meclizine 25 mg tablet 25 mg PO DAILY PRN (Reason: dizziness) phenobarbital 32.4 mg tablet 32.4 mg PO Q12H phenytoin sodium extended 100 mg capsule 100 mg PO Q8H Instructions: Dyspnea (ED) Stand Alone Forms: Portal Instructions Referrals: Jignesh Manjarrez MD [Primary Care Provider] - 1 week
[2023-09-01] MEDS: ASPIRIN 81 MG TAB.CHEW 162 MG PO (17:36)
[2023-09-01 17:38] LABS: Basophils Absolute Auto 0.1 10^3/uL (0.0-0.1); Basophils Percent Auto 0.9 % (0.2-2.0); Eosinophils Absolute Auto 0.3 10^3/uL (0.0-0.7); Eosinophils Percent Auto 4.8 % (0.9-7.0); Hematocrit 39.8 % (42.0-54.0); Hemoglobin 13.2 g/dL (14.0-18.0); Immature Granulocytes Abs Auto 0.02 10^3/uL (0.00-0.03); Immature Granulocytes Pct Auto 0.4 % (0.0-0.5); Lymphocytes Absolute Auto 0.9 10^3/uL (1.2-3.8); Lymphocytes Percent Auto 16.1 % (20.5-60.0); Mean Corpuscular HGB Conc 33.2 g/dL (29.9-35.2); Mean Corpuscular Volume 99.5 fL (80.0-94.0); Mean Platelet Volume 9.8 fL (9.5-13.5); Monocytes Absolute Auto 0.6 10^3/uL (0.3-0.8); Monocytes Percent Auto 10.8 % (1.7-12.0); Neutrophils Absolute Auto 3.6 10^3/uL (1.4-6.5); Platelet Count 175 10^3/uL (150-450); Red Cell Distribution Width 12.8 % (11.0-15.0); White Blood Count 5.4 10^3/uL (4.0-11.0)
--- NOTE | 2023-09-01 17:47 | PC.NURSE ---
pt brought in by ems. patient was carrying his laundry up the stairs and suddenly became sob and had left sided chest pressure that radiates into left shoulder. when ems arrived patient states that he has numbness and tingling from the waist up and numbness in fingertips. ems crew was able to calm patient down and then patient said sob was improving. on arrival to ED patient sob had resolved and chest pressure was a 1/10.
[2023-09-01 17:58] LABS: Alanine Aminotransferase 27 U/L (16-63); Albumin Globulin Ratio 0.8; Albumin Level 3.3 g/dL (3.4-5.0); Alkaline Phosphatase 159 U/L (46-116); Anion Gap 11.4; Aspartate Amino Transferase 21 U/L (15-37); Bilirubin Total 0.2 mg/dL (0.2-1.0); Calcium 7.6 mg/dL (8.5-10.1); Carbon Dioxide 25.4 mmol/L (21.0-32.0); Chloride 104 mmol/L (98-107); Estimated GFR (African America >60 (>=60); Estimated GFR (Non-African Ame >60 (>=60); Glucose 114 mg/dL (74-106); Potassium 3.8 mmol/L (3.5-5.1); Sodium 137 mmol/L (136-145); Total Protein 7.3 g/dL (6.4-8.2); Troponin I High Sensitivity 5.9 pg/mL (4.0-76.1)
[2023-09-01 17:59] LABS: INR 0.99; Partial Thromboplastin Time 29.6 sec (22.3-36.2); Prothrombin Time 10.5 sec (9.0-11.6)
--- NOTE | 2023-09-01 19:04 | ECG_ITS ---
The [facility] Test Date: 2023-09-01 Pat Name: GÓMEZ CORTES Department: Room: - Gender: Male Vtc Technician: : 1955 Requested By: ADALID GONSALEZ Order Number: [id number] Reading MD: NOE ESCALANTE Measurements Intervals [place] Rate: 69 P: 34 W[place]: 210 QRS: 17 QRSD: 86 T: 54 QT: 410 QTc: 430 Interpretive Statements 1100 Sinus rhythm 2231 First degree AV block Baseline artifact 9150 abnormal ECG No previous ECG available for comparison Electronically Signed On 09-02-2023 6:56:28 EDT by NOE ESCALANTE
[2023-09-01 20:11] LABS: Troponin I High Sensitivity 5.3 pg/mL (4.0-76.1)
== END 2023-09-01 20:40 | disposition home or self-care (01) ==
PROVIDERS: Physician Assistant; Emergency Provider Emergency Medicine; PCP Family Medicine
DX: R06.09 Other forms of dyspnea (principal); Z79.899 Other long term (current) drug therapy; Z87.891 Personal history of nicotine dependence; Z85.9 Personal history of malignant neoplasm, unspecified
CPT/HCPCS: 36415; 71275; 80053; 83880; 84484; 85025; 85610; 85730; 93005; 99285; Q9967

== ENCOUNTER 2023-09-11 09:27 | Emergency (ER) | payer OTHER, SELFPAY ==
[2023-09-11 09:33] VITALS: BP 160/88; PULSE 71; RESP 18; TEMP 37.1; O2SAT 97; BMI 37.6
--- NOTE | 2023-09-11 10:19 | ED_ITS ---
HPI - Extremity Injury (Upper) General Chief Complaint: Extremity Injury, Upper Stated Complaint: UPPER EXTREMITY PAIN LEFT ARM Time Seen by Provider: 09/11/23 10:07 Source: patient Mode of arrival: Wheelchair Limitations: no limitations History of Present Illness HPI narrative: The patient presented to us after he had an IV placed almost 10 days ago for work-up for shortness of breath the patient according to his history the pain started after they placed an IV in his arm and he has been having pain in that side since that day There is no fever no chills but the patient feels the pain going up his arm to his shoulder No other complaint the patient tried some Tylenol at home that did not help Related Data Home Medications Medication Instructions Recorded Confirmed atorvastatin 10 mg tablet 10 mg PO .hs 05/12/23 05/12/23 citalopram 40 mg tablet 40 mg PO DAILY 05/12/23 05/12/23 meclizine 25 mg tablet 25 mg PO DAILY PRN dizziness 05/12/23 05/12/23 phenobarbital 32.4 mg tablet 32.4 mg PO Q12H 05/12/23 05/12/23 phenytoin sodium extended 100 mg 100 mg PO Q8H 05/12/23 05/12/23 capsule Previous Rx's Medication Instructions Recorded diclofenac sodium 50 mg 50 mg PO Q12H PRN pain #10 tabs 09/11/23 tablet,delayed release Allergies Allergy/AdvReac Type Severity Reaction Status Date / Time gabapentin Allergy Intermediate Verified 05/12/23 13:17 oxycodone [From OxyContin] Allergy Intermediate Verified 05/12/23 13:17 phenytoin [From Dilantin] Allergy Intermediate Verified 05/12/23 13:17 Review of Systems ROS Status of ROS 10 or more systems reviewed and unremarkable except as noted in history and below PFSH PFS Social History Smoking status: Former smoker Exam Narrative Exam Narrative: Nurses notes and vital signs reviewed and patient is not hypoxic. General: Well-appearing and in no apparent distress. Skin: Warm, dry, no pallor noted. No rash. Head: Normocephalic, atraumatic. Neck: Supple, non-tender. Eye: Pupils are equal, round and EOMI. No scleral icterus. Ears, Nose, Mouth, and Throat: TM are clear, no nasal mucosal hypertrophy. Oral mucosa is moist, no posterior oropharynx erythema, uvula is mid-line Cardiovascular: Regular Rate and Rhythm without murmur, gallop or rub. Respiratory: No accessory muscle use or respiratory distress. Lungs are clear to auscultation, no wheezing, rales or rhonchi Chest Wall: no tenderness Back: No midline thoracic or lumbar vertebral tenderness. No CVA tenderness Musculoskeletal: normal ROM, no calf or popliteal tenderness, in the left arm the patient have the site of IV access with the healing ecchymosis in the middle of the left forearm there is no induration there is no redness no hotness no s igns of infection the patient have a good radial pulse and there is no vascular injury with a good capillary refill there is no tenderness upon palpation of his arm up to his shoulder GI: Abdomen is soft, non-distended. Normal bowel sounds. No masses appreciated. No tenderness to palpation. No rebound, guarding, or rigidity noted. Neurological: A&O x4. No cranial nerve dysfunction observed. No truncal ataxia. Moves all extremities. Sensation intact. Psychiatric: Cooperative and interactive. Normal mood and affect. Constitutional Vital Signs, click to edit/add: Last Vital Signs Temp 98.8 F 09/11/23 09:33 Pulse 70 09/11/23 10:42 Resp 18 09/11/23 10:42 BP 158/68 H 09/11/23 10:42 Pulse Ox 98 09/11/23 10:42 O2 Del Method Room Air 09/11/23 09:33 Course Vital Signs Vital signs: Vital Signs Temperature 98.8 F 09/11/23 09:33 Pulse Rate 71 09/11/23 09:33 Respiratory Rate 18 09/11/23 09:33 Blood Pressure 160/88 H 09/11/23 09:33 Pulse Oximetry 97 09/11/23 09:33 Oxygen Delivery Method Room Air 09/11/23 09:33 Temperature 98.8 F 09/11/23 09:33 Pulse Rate 70 09/11/23 10:42 Respiratory Rate 18 09/11/23 10:42 Blood Pressure 158/68 H 09/11/23 10:42 Pulse Oximetry 98 09/11/23 10:42 Oxygen Delivery Method Room Air 09/11/23 09:33 MDM - Extremity Injury (Upper) MDM Narrative Medical decision making narrative: Right now the patient presentation is mostly secondary to simple phlebitis he was started on NSAIDs as well as cold compression and supportive care The patient is to follow up with primary care physician in next 2-3 days or to return to the emergency department should any of the signs or symptoms worsen or new symptoms develop. The patient agrees with the following Diagnosis and Treatment plan and the patient will be discharged home. Discharge Plan Discharge Chief Complaint: Extremity Injury, Upper Clinical Impression: Phlebitis Patient Disposition: Home, Self-Care Time of Disposition Decision: 10:26 Prescriptions / Home Meds: New diclofenac sodium 50 mg tablet,delayed release (DR/EC) 50 mg PO Q12H PRN (Reason: pain) Qty: 10 0RF No Action atorvastatin 10 mg tablet 10 mg PO .hs citalopram 40 mg tablet 40 mg PO DAILY meclizine 25 mg tablet 25 mg PO DAILY PRN (Reason: dizziness) phenobarbital 32.4 mg tablet 32.4 mg PO Q12H phenytoin sodium extended 100 mg capsule 100 mg PO Q8H Instructions: Superficial Thrombophlebitis (ED) Stand Alone Forms: Portal Instructions Referrals: Jignesh Manjarrez MD [Primary Care Provider] - 1 week Discharge Date/Time: 09/11/23 10:46
[2023-09-11] MEDS: KETOROLAC TROMETHAMINE 30 MG/ML VIAL IM (10:30)
[2023-09-11 10:42] VITALS: BP 158/68; PULSE 70; RESP 18; O2SAT 98
== END 2023-09-11 10:46 | disposition home or self-care (01) ==
PROVIDERS: Emergency Provider Emergency Medicine; PCP Family Medicine
DX: I80.8 Phlebitis and thrombophlebitis of other sites (principal); Z79.899 Other long term (current) drug therapy; Z87.891 Personal history of nicotine dependence
CPT/HCPCS: 96372; 99284

== ENCOUNTER 2023-09-20 16:50 | Emergency (ER) | payer OTHER, MEDICAID, SELFPAY ==
[2023-09-20 16:52] VITALS: BP 125/72; PULSE 70; RESP 18; TEMP 36.1; O2SAT 93; BMI 37.5
--- NOTE | 2023-09-20 17:31 | ED_ITS ---
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 Squad gave him fentanyl and Zofran. Hurts to move shoulder. Denies hitting his head. Denies swelling, temp or sensation changes Related Data Home Medications Medication Instructions Recorded Confirmed atorvastatin 10 mg tablet 10 mg PO .hs 05/12/23 05/12/23 citalopram 40 mg tablet 40 mg PO DAILY 05/12/23 05/12/23 meclizine 25 mg tablet 25 mg PO DAILY PRN dizziness 05/12/23 05/12/23 phenobarbital 32.4 mg tablet 32.4 mg PO Q12H 05/12/23 05/12/23 phenytoin sodium extended 100 mg 100 mg PO Q8H 05/12/23 05/12/23 capsule Previous Rx's Medication Instructions Recorded diclofenac sodium 50 mg 50 mg PO Q12H PRN pain #10 tabs 09/11/23 tablet,delayed release diclofenac sodium 1 % topical gel 2 g topical QID PRN pain 5 days 09/20/23 (Voltaren Arthritis Pain) #100 grams Allergies Allergy/AdvReac Type Severity Reaction Status Date / Time gabapentin Allergy Intermediate Verified 09/20/23 16:56 oxycodone [From OxyContin] Allergy Intermediate Verified 09/20/23 16:56 phenytoin [From Dilantin] Allergy Intermediate Verified 09/20/23 16:56 Review of Systems ROS Status of ROS 10 or more systems reviewed and unremarkable except as noted in history and below [facility] Social History Smoking status: Former smoker Exam Narrative Exam Narrative: General: alert, no distress, talking in full an complete sentences skin: warm, dry, intact head: normocephalic, atraumatic eyes: EOMI nose: nares patent neck: supple, trachea midline respiratory: non-labored extremities: FROM x 4, strength +5/5, tender to right trapezius, capillary refill intact, pulses intact neuro: A&Ox3 psych: appropriate mood and affect, cooperative Constitutional Vital Signs, click to edit/add: Last Vital Signs Temp 97 F L 09/20/23 16:52 Pulse 70 09/20/23 16:52 Resp 18 09/20/23 16:52 BP 125/72 09/20/23 16:52 Pulse Ox 93 L 09/20/23 16:52 O2 Del Method Room Air 09/20/23 16:52 Course Vital Signs Vital signs: Vital Signs Temperature 97 F L 09/20/23 16:52 Pulse Rate 70 09/20/23 16:52 Respiratory Rate 18 09/20/23 16:52 Blood Pressure 125/72 09/20/23 16:52 Pulse Oximetry 93 L 09/20/23 16:52 Oxygen Delivery Method Room Air 09/20/23 16:52 Temperature 97 F L 09/20/23 16:52 Pulse Rate 70 09/20/23 16:52 Respiratory Rate 18 09/20/23 16:52 Blood Pressure 125/72 09/20/23 16:52 Pulse Oximetry 93 L 09/20/23 16:52 Oxygen Delivery Method Room Air 09/20/23 16:52 MDM - Extremity Injury (Upper) MDM Narrative Medical decision making narrative: No acute findings on final read of x-ray. He will be prescribed Voltaren gel follow-up family doctor. afebrile, not tachypneic, not tachycardic, tolerating p.o., not hypoxic, non toxic appearing and ambulating at baseline and hemodynamically stable to be d/c. answered all questions. educated on SE of meds. pt in agreement with tx. educated when to return to ER. Discharge Plan Discharge Chief Complaint: Extremity Injury, Upper Clinical Impression: Contusion of right shoulder, initial encounter Patient Disposition: Home, Self-Care Time of Disposition Decision: 18:01 Condition: Good Mode of Transportation: Private Vehicle Prescriptions / Home Meds: New diclofenac sodium [Voltaren Arthritis Pain] 1 % gel 2 g topical QID PRN (Reason: pain) 5 Days Qty: 100 0RF Rx Instructions: apply to single elbow, wrist or hand; for hand includes palm/fingers/back of hand No Action atorvastatin 10 mg tablet 10 mg PO .hs citalopram 40 mg tablet 40 mg PO DAILY meclizine 25 mg tablet 25 mg PO DAILY PRN (Reason: dizziness) phenobarbital 32.4 mg tablet 32.4 mg PO Q12H phenytoin sodium extended 100 mg capsule 100 mg PO Q8H diclofenac sodium 50 mg tablet,delayed release (DR/EC) 50 mg PO Q12H PRN (Reason: pain) Qty: 10 0RF Instructions: Contusion in Adults (ED) Stand Alone Forms: Portal Instructions Referrals: Jignesh Manjarrez MD [Primary Care Provider] - 1 week
--- NOTE | 2023-09-20 17:38 | XR_ITS ---
[address] [address] Patient Name: GÓMEZ CORTES MRN: [id number] date: 1955 Sex: M Assigned Patient Location: ED.MAIN Current Patient Location: ER Accession/Order Number: [id number] Exam Date: 09/20/2023 17:35 Report Date: 09/20/2023 17:52 At the request of: BAUDILIO CORDERO Procedure: XR shoulder RT min 2V EXAM: XR shoulder RT min 2V HISTORY: Shoulder pain after fall COMPARISON: X-ray 05/14/2023 TECHNIQUE: 2 views FINDINGS: IMPRESSION: Limited study secondary to the 2 views that were performed. No gross fracture, dislocation or subluxation. Moderate degenerative changes of the acromioclavicular joint. Surgical clips within the right axilla and right mediastinum. Postoperative changes of the cervical spine. Electronically authenticated by: TRINIDAD RAUSCH Date: 09/20/2023 17:52
== END 2023-09-20 18:48 | disposition home or self-care (01) ==
PROVIDERS: Emergency Provider Emergency Medicine; PCP Family Medicine
DX: S40.011A Contusion of right shoulder, initial encounter (principal); W19.XXXA Unspecified fall, initial encounter; Z79.899 Other long term (current) drug therapy; Z87.891 Personal history of nicotine dependence; G62.9 Polyneuropathy, unspecified
CPT/HCPCS: 73030; 99283

== ENCOUNTER 2023-10-02 19:04 | Emergency (ER) | payer MEDICARE, MEDICAID, SELFPAY ==
[2023-10-02 19:17] VITALS: BP 123/82; PULSE 79; RESP 18; TEMP 36.7; O2SAT 94; BMI 37.5
--- NOTE | 2023-10-02 20:14 | ED_ITS ---
HPI - Extremity Injury (Lower) General Chief Complaint: Extremity Injury, Lower Stated Complaint: LE INJURY Time Seen by Provider: 10/02/23 20:03 Source: patient Mode of arrival: walk-in Limitations: no limitations History of Present Illness HPI Narrative: patient states he has left foot drop. misstep last PM while walking and injured his left foot. Still has pain and now presents for evaluation. left ankle is a little sore but his foot is the main concern. Denies other injury Related Data Home Medications Medication Instructions Recorded Confirmed atorvastatin 10 mg tablet 10 mg PO .hs 05/12/23 10/02/23 citalopram 40 mg tablet 40 mg PO DAILY 05/12/23 10/02/23 meclizine 25 mg tablet 25 mg PO DAILY PRN dizziness 05/12/23 10/02/23 phenobarbital 32.4 mg tablet 32.4 mg PO Q12H 05/12/23 10/02/23 phenytoin sodium extended 100 mg 100 mg PO Q8H 05/12/23 10/02/23 capsule Previous Rx's Medication Instructions Recorded diclofenac sodium 50 mg 50 mg PO Q12H PRN pain #10 tabs 09/11/23 tablet,delayed release diclofenac sodium 1 % topical gel 2 g topical QID PRN pain 5 days 09/20/23 (Voltaren Arthritis Pain) #100 grams Allergies Allergy/AdvReac Type Severity Reaction Status Date / Time gabapentin Allergy Intermediate Verified 10/02/23 19:26 oxycodone [From OxyContin] Allergy Intermediate Verified 10/02/23 19:26 phenytoin [From Dilantin] Allergy Intermediate Verified 10/02/23 19:26 Review of Systems ROS Status of ROS 10 or more systems reviewed and unremarkable except as noted in history and below [facility] Social History Smoking status: Former smoker Exam Constitutional Vital Signs, click to edit/add: Last Vital Signs Temp 98.1 F 10/02/23 19:17 Pulse 79 10/02/23 19:17 Resp 18 10/02/23 19:17 BP 123/82 10/02/23 19:17 Pulse Ox 94 L 10/02/23 19:17 O2 Del Method Room Air 10/02/23 19:17 Common normals: no apparent distress, average body habitus, oriented x3, no limitations and healthy appearing [facility] Common normals: normocephalic and head/scalp atraumatic Respiratory Common normals: normal respiratory effort, no retractions and no use of accessory muscles Cardio Common normals: regular rate and regular rhythm Extremity Other: left foot with mild tenderness distal left 4th and 5th metatarsals minor tenderness left ankle. Mild swelling Neuro Common normals: oriented x3, CN's II-XII intact bilaterally and moves all extremities Psych Appearance: grossly normal Course Vital Signs Vital signs: Vital Signs Temperature 98.1 F 10/02/23 19:17 Pulse Rate 79 10/02/23 19:17 Respiratory Rate 18 10/02/23 19:17 Blood Pressure 123/82 10/02/23 19:17 Pulse Oximetry 94 L 10/02/23 19:17 Oxygen Delivery Method Room Air 10/02/23 19:17 Temperature 98.1 F 10/02/23 19:17 Pulse Rate 79 10/02/23 19:17 Respiratory Rate 18 10/02/23 19:17 Blood Pressure 123/82 10/02/23 19:17 Pulse Oximetry 94 L 10/02/23 19:17 Oxygen Delivery Method Room Air 10/02/23 19:17 MDM - Extremity Injury (Lower) MDM Narrative Medical decision making narrative: patient sprained left foot yesterday. Still has pain and presented to ER. xray with no acute findings. Patient informed of diagnosis of sprain foot and discharged home to follow up with his doctor Imaging Data Chest x-ray: Radiologist's impression: e: GÓMEZ CORTES MRN: [id number] date: 1955 Sex: M Assigned Patient Location: ER Current Patient Location: ER Accession/Order Number: [id number] Exam Date: 10/02/2023 20:45 Report Date: 10/02/2023 22:11 At the request of: CARRIE LAZO Procedure: XR foot LT min 3V EXAM: XR ankle LT min 3V, XR foot LT min 3V HISTORY: injury COMPARISON: None. TECHNIQUE: 3 views were performed of the left ankle and 3 views were performed of the left foot. FINDINGS: Left ankle: There is moderate osteopenia. There is no acute fracture or dislocation. There is a small plantar calcaneal spur and there is a large posterior calcaneal spur. There is diffuse atherosclerotic calcification in the lower leg. Left foot: Moderate osteopenia is again noted. There is a remote healed fracture involving the distal aspect of the fifth metatarsal bone. There is no definite acute fracture or dislocation. There are moderate degenerative changes of the first metatarsophalangeal and interphalangeal joints. There is a moderate posterior calcaneal spur and there is a small plantar calcaneal spur. XR/XR foot LT min 3V IMPRESSION: 1. No definite acute osseous abnormality in left foot or ankle. 2. Osteopenia. 3. Remote fracture of the distal fifth metatarsal bone. 4. Degenerative changes of first metatarsophalangeal and interphalangeal joints. 5. Calcaneal spurring consistent with enthesopathy. Electronically authenticated by: KELL GONZALEZ Date: 10/02/2023 22:11 Dictated By: Kell Gonzalez M.D. Signed By: 10/02/232213 DD/ 10 TD/TT: Discharge Plan Discharge Chief Complaint: Extremity Injury, Lower Clinical Impression: Sprain of foot, left Patient Disposition: Home, Self-Care Prescriptions / Home Meds: No Action diclofenac sodium [Voltaren Arthritis Pain] 1 % gel 2 g topical QID PRN (Reason: pain) 5 Days Qty: 100 0RF Rx Instructions: apply to single elbow, wrist or hand; for hand includes palm/fingers/back of hand atorvastatin 10 mg tablet 10 mg PO .hs citalopram 40 mg tablet 40 mg PO DAILY meclizine 25 mg tablet 25 mg PO DAILY PRN (Reason: dizziness) phenobarbital 32.4 mg tablet 32.4 mg PO Q12H phenytoin sodium extended 100 mg capsule 100 mg PO Q8H diclofenac sodium 50 mg tablet,delayed release (DR/EC) 50 mg PO Q12H PRN (Reason: pain) Qty: 10 0RF Instructions: Foot Sprain (ED) Additional Instructions: follow up with your family doctor Stand Alone Forms: Portal Instructions Referrals: Jignesh Manjarrez MD [Primary Care Provider] - 1 week
== END 2023-10-02 22:40 | disposition home or self-care (01) ==
PROVIDERS: Emergency Provider Internal Medicine; PCP Family Medicine
DX: S93.602A Unspecified sprain of left foot, initial encounter (principal); W18.40XA Slipping, tripping and stumbling without falling, unspecified, initial encounter; Z79.899 Other long term (current) drug therapy; Z87.891 Personal history of nicotine dependence
CPT/HCPCS: 73610; 73630; 99284

== ENCOUNTER 2023-12-30 22:36 | Observation (INO) | payer MEDICARE, MEDICAID, SELFPAY ==
[2023-12-30] VITALS (13 sets, daily range): BP systolic 93–120; BP diastolic 57–65; PULSE 68–77; RESP 13–19; TEMP 36.8; O2SAT 86–96
--- OUTSIDE RECORDS SUMMARY | 2023-12-30 22:45 | XMS_ITS | CCD ---
Author Name Unknown Address [address] [place] [address] Organization [facility] Care Team Providers Care Learning Consultant Name Role Phone KARINA JAY Attending Unavailable SELF, REFERRED Referring Unavailable JOSE MARIE Primary Care Unavailable JOHN MEJÍA Admitting Unavailable Alex Bonilla Unavailable Neelam Morris Unavailable AME, DR JOSE Danielson Admitting Unavailable FURLONG, DR JOSE Danielson Attending Unavailable WALLACE, DR JIGNESH Means Primary Care Unavailable AME, DR JOSE Danielson Primary Care Unavailable CARRIE LAZO Consulting Unavailable FAWWAD, TONY H Admitting Unavailable FAWWAD TONY H Attending Unavailable FAWWAD, TONY H Consulting Unavailable MAMIE ALFORD Consulting Unavailable HAY ., DR BUENROSTRO Admitting Unavailable HAY ., DR BUENROSTRO Attending Unavailable NADERER, DR JIGNESH Means Primary Care Unavailable WEST, DR TRINIDAD Cummins Consulting Unavailable LUZMARIA ., YONAS Consulting Unavailable NADJEM, DR JIGNESH Means Primary Care Unavailable HAY ., DR BUENROSTRO Admitting Unavailable HAY ., DR BUENROSTRO Attending Unavailable HAY ., DR BUENROSTRO Consulting Unavailable ALEJANDRO PINEDA Consulting Unavailable NADERER, DR JIGNESH Means Primary Care Unavailable PAY ., DR NOVAK Admitting Unavailable PAY ., DR NOVAK Attending Unavailable PAY ., DR NOVAK Consulting Unavailable GRECHNY ., ANNABELLE WILLINGHAM Consulting UnavailVIDAL Kwong Consulting Unavailable KELL DELANEY Consulting Unavailable WALLACE, DR JIGNESH Means Admitting Unavailable MARCOSEREChata, DR JIGNESH Means Attending Unavailable NADERER, DR JIGNESH Means Primary Care Unavailable BARBER, DR KELL Brizuela Consulting Unavailable WALLACE, DR JIGNESH Means Consulting Unavailable WALLACE, DR JIGNESH Means Admitting Unavailable WALLACE, DR JIGNESH Means Attending Unavailable WALLACE, DR JIGNESH Means Primary Care Unavailable BARBER, DR KELL Brizuela Consulting Unavailable NADERER, DR JIGNESH Means Consulting Unavailable Luiz Riggs Unavailable MD Luiz Riggs Attending Provider MD Jignesh Gonsalez Primary Care Provider [phone] Luiz Riggs Attending Unavailable Luiz Riggs Admitting Unavailable Jignesh Gonsalez Primary Care Unavailable JIGNESH GONSALEZ Primary Care Physician [phone] JIGNESH GONSALEZ Attending Unavailable JIGNESH GONSALEZ Attending Unavailable ROGERIO BAINS Referring Unavailable Jose Marie DO Primary Care Provider Chris CAMARILLO Attending Unavailable JIGNESH GONSALEZ Referring Unavailable Chris CAMARILLO Attending Unavailable Allergies Allergy Classification Reported Allergen(s) Allergy Type Date of Onset Reaction(s) Facility (4 sources) gabapentin; Translations: [GABAPENTIN] Drug Allergy 0 [facility] Repository (2 sources) oxyCODONE Drug Allergy 0 [facility] Repository (3 sources) Phenytoin; Translations: [Dilantin] Drug Allergy 0 [facility] Repository (5 sources) gabapentin; Translations: [gabapentin] Drug Allergy 0 Unknown (qualifier value) [facility] (7 sources) oxyCODONE; Translations: [oxycodone] Drug Allergy 0 Difficulty breathing (finding), Angioedema [facility] (5 sources) Phenytoin; Translations: [phenytoin] Drug Allergy 6 Dizziness (finding), Dizziness [facility] (1 source) ALLERGIES NOT ON FILE; Translations: [ALLERGIES NOT ON FILE] Propensity to adverse reactions (disorder) [facility] Repository (1 source) Phenytoin; Translations: [PHENYTOIN SODIUM EXTENDED] Drug Allergy 6 [facility] Repository Medications Current Medications Medication Drug Class(es) Dates Sig (Normalized) Sig (Original) Acetaminophen / HYDROcodone (2 sources) Opioid Agonist Higden Active take 1 tablet by ambika th every six hours HYDROcodone-Acetaminophen 7.5-325 MG 1 t ablet as needed Orally every 6 hrs Active aspirin 81 mg delayed release oral tablet (4 sources) Platelet Aggregation Inhibitor, Nonsteroidal Anti-inflammatory Drug aspirin 81 mg daily. 0 Active Baby Aspirin Act gloria atorvastatin 10 mg oral tablet (5 sources) HMG-CoA Reductase Inhibitor Start: 07-15-2023 atorvastatin 10 mg T ab Refills(s) 0 Start Date: 07/15/23 Status: Ordered Atorvastatin Jesus cium Active citalopram 40 mg oral tablet (2 sources) Serotonin Reuptake Inhibitor Start: 07-15-2023 citalopram 40 mg Tab Refills(s) 0 Start Date: 07/15/23 Status: Ordered take 0.5 tablet by m outh every twenty-four hours CeleXA 40 MG 0.5 tablet Orally Once a day Active dexpanthenol 2 mg/ml / niacinamide 100 mg/ml / riboflavin 2 mg/ml / thiamine 100 mg/ml / vitamin b6 2 mg/ml injectable solution (1 source) vit Z4-X3-V1-B5- B6 (B-COMPLEX INJECTION) 248-9-768-2-2 mg/mL solution B-Complex 1 QD 0 Active ibuprofen 800 mg oral tablet (2 sources) Nonsteroidal Anti-inflammatory Drug Start: 09-26-20 21 take 1 tablet by mouth three times daily ibuprofen (ADVIL,MOTRIN) 800 mg tablet Take 1 tablet (800 mg total) by mouth 3 (three) times a day. 21 tablet 0 09/26/2021 Active Ibuprofen Active Meclizine (1 source) Antiemetic Start: 07-15-2023 meclizine 25 m g Tab Refills(s) 0 Start Date: 07/15/23 Status: Ordered meloxicam 15 mg disintegrating oral tablet (4 sources) Nonsteroidal Anti-inflammatory Drug meloxicam 15 mg tablet,disintegrati ng 1 tablet 0 Active Meloxicam Not-Ta noa Meloxicam Active qmfektwbqkje-zknprefh-dezcxj (MULTIVITAMIN 50 PLUS) tablet (1 source) multivitamin-min erals-lutein (MULTIVITAMIN 50 PLUS) tablet daily. 0 Active PHENobarbital 32.4 mg oral t ablet (4 sources) Start : 11-15 take 2 tablets by mouth three times daily PHENobarbitaL (LUMINAL) 32.4 mg tablet Indications: Seizure (CMS-HCC) take 2 tablets by mouth three times a day 180 tablet 0 11/15/2022 Active take 1 tablet by ambika every twelve hours PHENobarbital 32.4 MG 1 tablet Orally Tw ice a day Active phenytoin sodium 100 mg extended release oral capsule (5 sources) Anti-epileptic Agent Start: 07-15-2023 phenytoin 100 mg Cap-ER Refills(s) 0 Start Date: 07/15/23 Status: Ordered Start: 08-30-2022 phenytoin (DIL ANTIN) 100 mg ER capsule take 2 capsules three times a day 360 capsule 1 08/30/2022 Active take 1 capsule by mo [facility] every twelve hours Phenytoin Sodium Extended 100 MG 1 capsule Orally every 12 hrs Active vitamin B12 (2 sources) Vitamin B12 Vitamin B12 Acti ve Completed/Discontinued Medications Medication Drug Class(es) Dates Sig (Normalized) Sig (Original) Mens Multivitamin (2 sources) Mens Multivitami n Not-Taking Mens Multivitami n Active Problems Active Problems Problem Classification Problem Date Documented Date Episodic/Chronic Acquired foot deformities (1 source) Foot drop, left foot Episodic Cancer of bladder (2 sources) Malignant tumor of urinary bladder; Translations: [Malignant neoplasm of bladder, unspecified] Onset: 12-16-2017 07-15-2023 Chronic Cancer of bladder (1 source) Personal history of malignant neoplasm of bladder; Translations: [PERSONAL HX MALIG NEOPLASM BLADDER] Onset: 12-27-2022 Episodic Cancer of testis (1 source) Personal history of malignant neoplasm of testis; Translations: [PERSONAL HX MALIG NEOPLASM TESTIS] Onset: 12-27-2022 Episodic Cancer; other and unspecified primary (1 source) H/O: malignant neoplasm 07-15-2023 Episodic Conditions associated with dizziness or vertigo (4 sources) Dizziness and giddiness; Translations: [DIZZINESS AND GIDDINESS] Onset: 11-04-2022 Episodic Coronary atherosclerosis and other heart disease (1 source) Atherosclerotic heart disease of lime coronary artery without angina pectoris; Translations: [ASHD HAVASUPAI CA W/O ANGINA PECTORIS] Onset: 12-27-2022 Chronic Disorders of lipid metabolism (5 sources) Mixed hyperlipidemia; Translations: [Pure hypercholesterolemia, unspecified] Onset: 01-28-2020 07-15-2023 Chronic E Codes: Fall (2 sources) Fall on same level, unspecified, initial encounter; Translations: [Unspecified fall, initial encounter] Onset: 08-25-2022 Episodic Epilepsy; convulsions (2 sources) Other epilepsy, not intractable, without status epilepticus; Translations: [Epilepsy, unspecified, not intractable, without status epilepticus] Onset: 06-22-2022 Chronic Fracture of upper limb (1 source) Displaced fracture of head of left radius, initial encounter for closed fracture; Translations: [DSPL FX HEAD LT RADIUS INIT CLOS FX] Onset: 12-27-2022 Episodic Joint disorders and dislocations; trauma-related (1 source) Derangement of right knee; Translations: [Unspecified internal derangement of right knee] Onset: 08-16-2022 08-16-2022 Chronic Malignant neoplasm without specification of site (1 source) Extragonadal germinoma; 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, unspecified] Onset: 01-19-1998 08-16-2022 Chronic Osteoarthritis (2 sources) Unspecified osteoarthritis, unspecified site; Translations: [Arthritis of right hip] Onset: 08-16-2022 08-16-2022 Chronic Other aftercare (1 source) director long term care (current) use of aspirin; Translations: [HALFWAY CURRENT USE OF ASPIRIN] Onset: 12-27-2022 Episodic Other aftercare (1 source) Other fci (current) drug therapy; Translations: [OTH EXTERIOR DOOR INSTALLER CURRENT DRUG THERAPY] Onset: 12-27-2022 Episodic Other bone disease and musculoskeletal deformities (1 source) Other specified disorders of bone density and structure, unspecified site; Translations: [OTH D/O BONE DEN STRUCT UNS SITE] Onset: 11-07-2022 Episodic Other connective tissue disease (3 sources) Dupuytren's contracture; Translations: [Palmar fascial fibromatosis [Dupuytren]] Episodic Other connective tissue disease (2 sources) Arthrodesis status; Translations: [ARTHRODESIS STATUS] Onset: 11-07-2022 Episodic Other ear and sense organ disorders (1 source) Impacted cerumen, right ear; Translations: [IMPACTED CERUMEN RIGHT EAR] Onset: 11-07-2022 Episodic Other nervous system disorders (3 sources) Toxic polyneuropathy; 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 Other nervous system disorders (2 sources) Polyneuropathy due to other toxic agents Onset: 12-28-2021 Resolved: 12-28-2021 Chronic Other nervous system disorders (1 source) Sequelae of toxic polyneuropathy; 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] Onset: 11-07-2022 Chronic Other nervous system disorders (1 source) Polyneuropathy, unspecified; Translations: [POLYNEUROPATHY UNSPECIFIED] Onset: 08-25-2022 Chronic Other nervous system disorders (1 source) Neuropathy; Translations: [Drug-induced polyneuropathy] Onset: 01-28-2020 08-16-2022 Chronic Other non-traumatic joint disorders (3 sources) Pain in left hip; Translations: [PAIN IN LEFT HIP] Onset: 12-24-2022 Episodic Other nutritional; endocrine; and metabolic disorders (1 source) Hypocalcemia; Translations: [HYPOCALCEMIA] Onset: 11-07-2022 Chronic Other nutritional; endocrine; and metabolic disorders (1 source) Obesity, unspecified; Translations: [OBESITY UNSPECIFIED] Onset: 10-04-2022 Chronic Other nutritional; endocrine; and metabolic disorders (1 source) Obesity; Translations: [Obesity, unspecified] Onset: 01-12-2021 08-16-2022 Chronic Residual codes; unclassified (1 source) Sleep apnea, unspecified; Translations: [SLEEP APNEA UNSPECIFIED] Onset: 11-07-2022 Chronic Residual codes; unclassified (1 source) Acquired absence of other specified parts of digestive tract; Translations: [ACQ ABSENCE OTH PART DIGESTV TRACT] Onset: 12-27-2022 Episodic Residual codes; unclassified (1 source) Pain, unspecified; Translations: [Pain, unspecified] Onset: 12-20-2023 Episodic Screening and history of mental health and substance abuse codes (1 source) Personal history of nicotine dependence; Translations: [PERSONAL HISTORY OF NICOTINE DEPEND] Onset: 12-27-2022 Episodic Spondylosis; intervertebral disc disorders; other back problems (9 sources) Degeneration of lumbar intervertebral disc; Translations: [Other intervertebral disc degeneration, lumbar region] Onset: 12-28-2021 Resolved: 12-28-2021 Chronic Superficial injury; contusion (2 sources) Contusion of left hip, initial encounter; Translations: [Abrasion of left elbow, initial encounter] Onset: 12-27-2022 Episodic Syncope (5 sources) Syncope and collapse; Translations: [SYNCOPE AND COLLAPSE] Onset: 11-07-2022 Episodic Unclassified (1 source) CONTACT W/AND (SUSP) EXPOS COVID-19; Translations: [CONTACT W/AND (SUSP) EXPOS COVID-19] Onset: 11-07-2022 Unclassified (1 source) OTH CRANIAL CEREBROSPINL FLUID LEAK; Translations: [OTH CRANIAL CEREBROSPINL FLUID LEAK] Onset: 11-07-2022 Unclassified (1 source) LOW BACK PAIN, UNSPECIFIED; Translations: [LOW BACK PAIN, UNSPECIFIED] Onset: 06-22-2022 Unclassified (1 source) Other intervertebral disc degeneration, lumbar region; Translations: [Other intervertebral disc degeneration, lumbar region] Onset: 07-05-2023 Past or Other Problems Problem Classification Problem Date Documented Da te Episodic/Chronic Epilepsy; convulsions (3 sources) Unspecified convulsions; Translations: [Seizure] Onset: 01-19-1975 07-15-2023 Episodic Nonspecific chest pain (4 sources) Chest pain, unspecified; Translations: [CHEST PAIN UNSPECIFIED] Onset: 06-12-2022 Episodic Other and unspecified benign neoplasm (4 sources) History of polyp of colon; Translations: [Personal history of colonic polyps] Onset: 01-28-2020 08-16-2022 Episodic Other connective tissue disease (4 sources) Pain in right foot; Translations: [PAIN IN RIGHT FOOT] Onset: 09-29-2022 Episodic Other ear and sense organ disorders (1 source) Impacted cerumen, bilateral Onset: 04-06-2022 Resolved: 04-06-2022 Episodic Other injuries and conditions due to external causes (1 source) History of falling; Translations: [HISTORY OF FALLING] Onset: 06-22-2022 Episodic Other injuries and conditions due to external causes (1 source) History of fall; Translations: [History of falling] Onset: 08-16-2022 08-16-2022 Episodic Other non-traumatic joint disorders (3 sources) Pain in left knee; Translations: [PAIN IN LEFT KNEE] Onset: 08-23-2022 Episodic Other screening for suspected conditions (not mental disorders or infectious disease) (2 sources) Encounter for screening for malignant neoplasm of prostate; Translations: [Other specified abnormal findings of blood chemistry] Onset: 06-22-2022 Episodic Spondylosis; intervertebral disc disorders; other back problems (1 source) Pain in thoracic spine; Translations: [PAIN IN THORACIC SPINE] Onset: 06-22-2022 Episodic Sprains and strains (1 source) Sprain of unspecified site of left knee, initial encounter; Translations: [SPRAIN UNS SITE LT KNEE INITIAL] Onset: 08-25-2022 Episodic Results Test Name Value Interpretation Reference Range Facility XR lumbar spine 6V w bending on 07-05-2023 XR lumbar spine 6V w bending [facility] [place] [address] [place] [address] XRay Report Signed Patient: Nazario Cortes Jr MR#: [id number] : 1955 Acct:[id number] Age/Sex: 68 / M ADM Date: 07/05/23 Loc: XD Room: Type: [facility] Attending Dr: Luiz Riggs MD Copies to: Luiz Riggs MD Ordering Provider: Luiz Riggs MD Date of Service: 07/05/23 XR/XR lumbar spine 6V w bending: M51.36 LUMBAR SPINE WITH FLEXION, EXTENSION AND BENDING VIEWS - 6 views: CLINICAL HISTORY: Low back pain radiating to the legs. Numbness at the feet. COMPARISON: 06/13/2023 Standing AP neutral, right and left bending and lateral views in neutral, flexion and extension were obtained. There is osteopenia. No acute fractures or displacement are identified. No instability is seen. There is disc space narrowing at L3-4 and L4-5. Endplate spurring is present throughout. There is mid and lower lumbar facet hypertrophy. The SI joints are intact. No paraspinal soft tissue abnormalities are noted. XR/XR lumbar spine 6V w bending IMPRESSION: OSTEOPENIA AND DEGENERATIVE CHANGES. Impression dictated by: Hoa Lockwood M.D.07/05/2023 2:21 PM Dictation Location: [place] [address] Transcribed By: [facility] 07/05/23 1421 Dictated By: Hoa Lockwood MD 07/05/23 1415 Signed By: 07/05/23 1421 Normal [facility] US CAROTID ART BILon 023 US CAROTID ART HOMERO EXAMINATION: US CAROTID ART HOMERO HISTORY: Syncope and collapse COMPARISON: No relevant comparison available. TECHNIQUE: Duplex Doppler ultrasound analysis of carotid and vertebral arteries. . Bilateral carotid arterial duplex examination was performed using B-mode, color flow and spectral analysis. Carotid stenosis is reported according to validated velocity parameters, similar to NASCET criteria. FINDINGS: RIGHT CAROTID ARTERY: Mild atherosclerotic plaque within carotid bulb. RIGHT VERTEBRAL: Antegrade flow. Subclavian: PSV: 133.8 cm/s EDV: 0.0 cm/s CCA: Prox: PSV: 66.9 cm/s EDV: 10.9 cm/s Mid: PSV: 72.1 cm/s EDV: 13.8 cm/s Distal: PSV: 51.7 cm/s EDV: 18.9 cm/s BULB: PSV: 48.1 cm/s EDV: 12.5 cm/s ICA: Prox: PSV: 53.8 cm/s EDV: 23.2 cm/s Mid: PSV: 79.8 cm/s EDV: 24.8 cm/s Distal: PSV: 56.6 cm/s EDV: 21.7 cm/s ECA: PSV: 68.8 cm/s EDV: 11.6 cm/s VERTEBRAL: PSV: 40.3 cm/s EDV: 14.0 cm/s ICA/CCA ratio: PSV: 1.1 EDV: 1.8 LEFT CAROTID ARTERY: Mild atherosclerotic plaque within proximal ICA. LEFT VERTEBRAL: Antegrade flow. Subclavian: PSV: 132.2 cm/s EDV: 0.0 cm/s CCA: Prox: PSV: 107.6 cm/s EDV: 25.2 cm/s Mid: PSV: 70.7 cm/s EDV: 21.5 cm/s Distal: PSV: 60.7 cm/s EDV: 18.0 cm/s BULB: PSV: 48.1 cm/s EDV: 16.1 cm/s ICA: Prox: PSV: 72.1 cm/s EDV: 27.0 cm/s Mid: PSV: 87.5 cm/s EDV: 34.4 cm/s Distal: PSV: 52.8 cm/s EDV: 15.9 cm/s ECA: PSV: 67.7 cm/s EDV: 12.7 cm/s VERTEBRAL: PSV: 44.2 cm/s EDV: 9.1 cm/s ICA/CCA ratio: PSV: 1.2 EDV: 1.6 IMPRESSION: 1. 0-49% flow stenosis within right and left carotid arteries. 2. Mild atherosclerotic disease. Electronically authenticated by: KELL BLANDON Date: 2023-01-11 08:42 Normal [facility] ECHOCARDIO M/2D COMPLETEon 0 01-07-2023 ECHOCARDIO M/2D COMPLETE Patient: NAZARIO CORTES Exam Date: 01/07/2023 : 1955 Gender:M Ordering : DR JIGNESH GONSALEZ . Admission #: [id number] Family : Order #: [id number] CLICK HERE TO VIEW EXAM ECHOCARDIOGRAM REPORT PROCEDURE: CARDIO PULMONARY ECHOCARDIO M/2D COMP INDICATIONS: Syncope COMPARISON: None. DESCRIPTION: COMPLETE ECHOCARDIOGRAM Real-time transthoracic echocardiography with 2D, M-mode, spectral and color flow Doppler performed. QUALITY: Technically difficult due to patients condition. LEFT VENTRICLE: Normal chamber size. Mild concentric left ventricular hypertrophy. Normal systolic function. LV EF: Normal left ventricular ejection fraction, (>55%). DIASTOLIC: Diastolic function is indeterminate. ATRIAL SEPTUM: LEFT ATRIUM: Normal chamber size. RIGHT ATRIUM: Normal chamber size. RIGHT VENTRICLE: Normal chamber size. Normal right ventricular systolic function. TRICUSPID VALVE: Normal mobility and thickness. No stenosis and no regurgitation. MITRAL VALVE: Normal mobility and thickness. No evidence of mitral valve stenosis. There is no mitral annular calcification. AORTIC VALVE: Normal trileaflet appearance. No visible sclerosis. Normal leaflet mobility. No evidence of aortic valve stenosis. No aortic regurgitation. AORTIC ROOT: Normal diameter and appearance. PULMONIC VALVE: Not well visualized. No stenosis. No regurgitation. PERICARDIUM: No evidence of pericardial effusion. IVC: Not well visualized. PLEURA: CONCLUSION: 1. Mild concentric left ventricular hypertrophy. Normal ventricular systolic function. LVEF is 55 to 60%. 2. No significant valvular dysfunction. 3. No pericardial effusion. Adult Echocardiography Procedure Report Left Ventricle LVEDD (3.7 - 5.6 cm): 4.07 cm LVESD (2.2 - 4.0 cm): 2.91 cm LVIVS thickness (0.6 - 1.2 cm): 1.26 cm LVPW thickness (0.5 - 1.0 cm): 1.34 cm e': 0.09 m/s E - e': 5.93 LVOT Max Gradient: 2.03 mm[Hg] Peak Velocity (LVOT): 0.71 m/s LVOT Diameter 2.29 cm Left Ventricular Ejection Fraction: 55-60 % Left Atrium Left Atrium Systolic Dimension: 4.83 cm Mitral Valve MV E to A Ratio: 0.83 Mitral Valve A-Wave Peak Velocity: 0.67 m/s Mitral Valve E-Wave Peak Velocity: 0.56 m/s Right Ventricle Aorta AO Root Diam: 3.86 cm Aortic Valve AoV Area (Peak Abimael): 3.03 cm2, 3.03 cm2 Peak Velocity(Antegrade Flow): 0.97 m/s Peak Gradient(Antegrade Flow): 3.76 mm[Hg] Tricuspid Valve Peak Velocity: 0.46 m/s Pulmonic Valve Peak Velocity: 0.94 m/s, 0.98 m/s Peak Gradient: 3.55 mm[Hg], 3.81 mm[Hg] Right Atrium Right Atrium Systolic Pressure: 46.21 ml, 46.21 ml Dictated by: Arcadio Smith M.D. on 01/11/2023 at 18:20 Approved by: Arcadio Smith M.D. on 01/11/2023 at 18:23 Normal [facility] XR ELBOW LT MIN 3 VIEWSon XR ELBOW LT MIN 3 VIEWS EXAM: XR ELBOW LT MIN 3 VIEWS HISTORY: Bone injury COMPARISON: None. TECHNIQUE: 3 views of the left elbow FINDINGS: Acute fracture of the left radial head is seen. Joint alignment is normal. Joint spaces are preserved. A lateral view of the elbow is not obtained. However, anterior joint effusion is suspected. IMPRESSION: Acute left radial head fracture. Electronically authenticated by: VIDAL FRASER Date: 2022-12-24 20:23 Normal [facility] XR HIP LT 2 3V W PELVISon XR HIP LT 2 3V W PELVIS EXAM: XR HIP LT 2 3V W PELVIS HISTORY: Bone injury COMPARISON: None. TECHNIQUE: 3 views of the left hip FINDINGS: No acute fracture is seen. Joint alignment is normal. Joint spaces are preserved. Soft tissues appear unremarkable. IMPRESSION: No acute fracture or malalignment. Electronically authenticated by: VIDAL FRASER Date: 2022-12-24 20:21 Normal [facility] XR HUMERUS LT MIN 2Von 12-24 XR HUMERUS LT MIN 2V XR HUMERUS LT MIN 2 V: HISTORY: Bone injury. COMPARISON: Left humerus 06/21/2021. TECHNIQUE: Two radiographic view(s) obtained. FINDINGS: BONES/JOINT SPACES: There is no acute fracture or dislocation. There is an orthopedic screw in the left glenoid which is stable. There is cortical irregularity in the humeral head which may be due to remote trauma. SOFT TISSUES: Normal. IMPRESSION: No acute osseous abnormality. Electronically authenticated by: KELL DELANEY Date: 2022-12-24 21:03 Normal [facility] CBC AUTO DIFFon 11-04-2022 BASO # 0.1 103/ul Normal 0.0-0.1 [facility] Comment on above: Performed By: #### B MP, CMREP, LIPID #### [facility] [address] [place] [address] Dr. Jeimy Tenorio Basophils/100 WBC (Bld) 0.9 % Normal 0.2-2.0 [facility] Comment on above: Performed By: #### B MP, CMREP, LIPID #### [facility] [address] [place] [address] Dr. Jeimy Tenorio EO # 0.3 103/ul Normal 0.0-0.7 [facility] Comment on above: Performed By: #### B MP, CMREP, LIPID #### [facility] [address] [place] [address] [address] Jeimy Tenorio Eosinophils/100 WBC (Bld) 5.2 % Normal 0.9-7.0 [facility] Comment on above: Performed By: #### B MP, CMREP, LIPID #### [facility] [address] [place] [address] Dr. Jeimy Tenorio Erythrocyte distribution width (RBC) [Ratio] 12.9 % Normal 11.0-15.0 [facility] Comment on above: Performed By: #### B MP, CMREP, LIPID #### [facility] [address] [place] [address] Dr. Jeimy Tenorio Hematocrit (Bld) [Volume fraction] 39.5 % Critically low 42.0-54.0 [facility] Comment on above: Performed By: #### B MP, CMREP, LIPID #### [facility] [address] [place] [address] Dr. Jeimy Tenorio Hemoglobin (Bld) [Mass/Vol] 13.1 g/dL Critically low 14.0-18.0 [facility] Comment on above: Performed By: #### B MP, CMREP, LIPID #### [facility] [address] [place] [address] [address] Jeimy Tenorio IG # 0.03 10e3/ul Normal 0.00-0.03 [facility] Comment on above: Performed By: #### B MP, CMREP, LIPID #### [facility] [address] [place] [address] Dr. Jeimy Tenorio IG % 0.5 % Normal 0.0-0.5 [facility] Comment on above: Performed By: #### B MP, CMREP, LIPID #### [facility] [facility] [address] [place] [address] Dr. Jeimy Tenorio LYMPH # 1.5 103/ul Normal 1.2-3.8 [facility] Comment on above: Performed By: #### B MP, CMREP, LIPID #### [facility] [address] [place] [address] Dr. Jeimy Tenorio Lymphocytes/100 WBC (Bld) 22.6 % Normal 20.5-60.0 [facility] Comment on above: Performed By: #### B MP, CMREP, LIPID #### [facility] [address] [place] [address] Dr. Jeimy Tenorio MANUAL DIFF REQ NO Normal [facility] Comment on above: Performed By: #### B MP, CMREP, LIPID #### [facility] [address] [place] [address] Dr. Jeimy Tenorio MCH (RBC) [Entitic mass] 32.8 pg Normal 25.9-34.0 [facility] Comment on above: Performed By: #### B MP, CMREP, LIPID #### [facility] [address] [place] [address] Dr. Jeimy Tenorio MCHC (RBC) [Mass/Vol] 33.2 g/dL Normal 29.9-35.2 [facility] Comment on above: Performed By: #### B MP, CMREP, LIPID #### [facility] [address] [place] [address] Dr. Jeimy Tenorio MCV (RBC) [Entitic vol] 99.0 fL Critically high 80.0-94.0 [facility] Comment on above: Performed By: #### B MP, CMREP, LIPID #### [facility] [address] [place] [address] Dr. Jeimy Tenorio MONO # 0.7 103/ul Normal 0.3-0.8 [facility] Comment on above: Performed By: #### B MP, CMREP, LIPID #### [facility] [address] [place] [address] Dr. Jeimy Tenorio Monocytes/100 WBC (Bld) 10.6 % Normal 1.7-12.0 [facility] Comment on above: Performed By: #### B MP, CMREP, LIPID #### [facility] [address] [place] [address] Dr. Jeimy Tenorio NEUT # 4.0 103/ul Normal 1.4-6.5 [facility] Comment on above: Performed By: #### B MP, CMREP, LIPID #### [facility] [address] [place] [address] Dr. Jeimy Tenorio Neutrophils/100 WBC (Bld) 60.2 % Normal 43.0-75.0 [facility] Comment on above: Performed By: #### B MP, CMREP, LIPID #### [facility] [address] [place] [address] Dr. Jeimy Tenorio Platelet mean volume (Bld) [Entitic vol] 9.7 fL Normal 9.5-13.5 [facility] Comment on above: Performed By: #### B MP, CMREP, LIPID #### [facility] [address] [address] [address] Jeimy Tenorio PLT 176 103/ul Normal 150-450 [facility] Comment on above: Performed By: #### B MP, CMREP, LIPID #### [facility] [address] [address] [address] Jeimy Tenorio RBC 3.99 106/ul Critically low 4.70-6.10 [facility] Comment on above: Performed By: #### B MP, CMREP, LIPID #### [facility] [address] [address] [address] Jeimy Tenorio WBC 6.6 103/ul Normal 4.0-11.0 [facility] Comment on above: Performed By: #### B MP, CMREP, LIPID #### [facility] [address] [address] [address] HEAD WO CONon 11-04-2022 CT HEAD WO CON EXAMINATION: CT HEAD WO CON HISTORY: HEADACHE episode of a blackout COMPARISON: 06/16/2021 TECHNIQUE: CT head without IV contrast. Coronal and sagittal reformations were performed. Dose reduction techniques were achieved by using automated exposure control and/or adjustment of mA and/or kV according to patient size and/or use of iterative reconstruction technique. FINDINGS: The lateral ventricles are normal size, shape and position. The third and fourth ventricles are midline. There is mild to moderate abnormal diminished attenuation in the periventricular white matter and centrum semiovale, unchanged since the prior. A mass is not identified. No intracranial hemorrhage is detected. Mild asymmetrical prominence of the left subdural space is unchanged. Cortical sulci are normal and are symmetrical side to side. A fracture or cortical irregularity is not identified. The visualized paranasal sinuses are clear. The mastoid air cells are normally pneumatized. IMPRESSION: 1. Mild to moderate abnormal diminished attenuation in the periventricular white matter and centrum semiovale. Although nonspecific, the most common explanation would be mild to moderate chronic small vessel ischemic change. 2. Small left subdural hygroma, unchanged. 3. An acute abnormality is not identified. Electronically authenticated by: ALEJANDRO PINEDA Date: 2022-11-04 14:08 Normal [facility] Covid-19 PCR (CVDTBH)on 10-21 SARS-CoV-2 (COVID-19) RNA ALEX+probe Ql (Unsp spec) Not detected Normal NOT DETECTED [facility] Comment on above: Result Comment: This test is not yet approved or cleared by the [place] FDA. When there are no FDA-approved or cleared tests available, and other criteria are met, FDA can make tests available under an emergency access mechanism called an Emergency Use Authorization (EUA). The EUA for this test is supported by the Food Safety Officer of Health and Human Service's (HHS's) declaration that circumstances exist to justify the emergency use of in vitro diagnostics for the detection and/or diagnosis of the virus that causes COVID-19. This EUA will remain in effect (meaning this test can be used) for the duration of the COVID-19 declaration justifying emergency of IVDs, unless it is terminated or revoked by FDA (after which the test may no longer be used). When diagnostic testing is negative, the possibility of a false negative should be considered in the context of a patient's recent exposures and the presence of clinical signs and symptoms consistent with SARS-CoV-2. Performed By: #### B MP, CMREP, LIPID #### [facility] [address] [place] [address] Dr. Jeimy Tenorio INFLUENZA A AND B AGon 11-04 INFLUANEGH SEE BELOW Normal [facility] Comment on above: Result Comment: Nega tive for Flu A protein angiten. Infection due to Flu A cannot be ruled out. Flu A angiten in the sample may be below the detection limit of the test. Performed By: #### I NFLUAB #### [facility] [address] [place] [address] Dr. Jeimy Tenorio INFLUBNEGH SEE BELOW Normal [facility] Comment on above: Result Comment: Nega tive for Flu B protein antigen. Infection due to Flu B cannot be ruled out. Flu B antigen in the sample may be below the detection limit of the test. Performed By: #### I NFLUAB #### [facility] [address] [place] [address] Dr. Jeimy Tenorio INFLUENZA A AG Negative Normal NEGATIVE SEE COMMENT [facility] Comment on above: Performed By: #### I NFLUAB #### [facility] [address] [address] [address] Jeimy Tenorio INFLUENZA B AG Negative Normal NEGATIVE SEE COMMENT [facility] Comment on above: Performed By: #### I NFLUAB #### [facility] [address] [address] [address] Jeimy Tenorio INTERNAL CONTROLS Within Normal Limits Normal Wi thin Normal Limits [facility] Comment on above: Performed By: #### I NFLUAB #### [facility] [address] [address] [address] Jeimy Tenorio PROF CHEM 8 (BAS METB)on Anion gap [Moles/Vol] 9.7 mmol/L Normal [facility] Comment on above: Performed By: #### C BC #### [facility] [address] [place] [address] Dr. Jeimy Tenorio Calcium [Mass/Vol] 8.0 mg/dL Critically low 8.5-10.1 [facility] Comment on above: Performed By: #### C BC #### [facility] [address] [place] [address] Dr. Jeimy Tenorio Chloride [Moles/Vol] 104 mmol/L Normal 98-107 [facility] Comment on above: Performed By: #### C BC #### [facility] [address] [place] [address] Dr. Jeimy Tenorio CO2 [Moles/Vol] 31.1 mmol/L Normal 21.0-32.0 [facility] Comment on above: Performed By: #### C BC #### [facility] [address] [place] [address] Dr. Jeimy Tenorio Creatinine [Mass/Vol] 0.75 mg/dL Normal 0.70-1.30 [facility] Comment on above: Performed By: #### C BC #### [facility] [address] [place] [address] Dr. Jeimy Tenorio EGFR-AF NIUEAN >60 Normal >=60 [facility] Comment on above: Performed By: #### C BC #### [facility] [address] [address] [address] Jeimy Tenorio EGFR-NON AF NIUEAN >60 Normal >=60 [facility] Comment on above: Performed By: #### C BC #### [facility] [address] [address] [address] Jeimy Tenorio Glucose [Mass/Vol] 76 mg/dL Normal 74-106 [facility] Comment on above: Performed By: #### C BC #### [facility] [address] [address] [address] Jeimy Tenorio Potassium [Moles/Vol] 3.8 mmol/L Normal 3.5-5.1 [facility] Comment on above: Performed By: #### C BC #### [facility] [address] [address] [address] Jeimy Tenorio Sodium [Moles/Vol] 141 mmol/L Normal 136-145 [facility] Comment on above: Performed By: #### C BC #### [facility] [address] [address] [address] Jeimy Tenorio Urea nitrogen [Mass/Vol] 12.0 mg/dL Normal 7.0-18.0 [facility] Comment on above: Performed By: #### C BC #### [facility] [address] [address] [address] Jeimy Tenorio Urea nitrogen/Creatinine [Mass ratio] 16.0 mg/mg Normal [facility] Comment on above: Performed By: #### C BC #### [facility] [address] [place] [address] Dr. Jeimy Tenorio TROPONIN, HIGH SENSITIVITYon 11-04-2022 HSTROP 5.8 pg/mL Normal 4.0-76.1 [facility] Comment on above: Result Comment: CUT- OFF POINTS HAVE BEEN ESTABLISHED BASED ON THE FOURTH UNIVERSAL DEFINITIONS OF MYOCARDIAL INFARCTION. THE UPPER REFERENCE LIMIT (URL) OF TROPONIN, DEFINED THE 99TH PERCENTILE OF cTnI DISTRIBUTION IN A REFERENCE POPULATION, HAS BEEN CONFIRMED THE DECISION THRESHOLD FOR [place] DIAGNOSIS. Performed By: #### C BC #### [facility] [address] [place] [address] Dr. Jeimy Tenorio CBC AUTO DIFFon 09-29-2022 BASO # 0.1 103/ul Normal 0.0-0.1 [facility] Comment on above: Performed By: #### B MP, CMREP, LIPID #### [facility] [address] [place] [address] Dr. Jeimy Tenorio Basophils/100 WBC (Bld) 1.2 % Normal 0.2-2.0 [facility] Comment on above: Performed By: #### B MP, CMREP, LIPID #### [facility] [address] [place] [address] Dr. Jeimy Tenorio EO # 0.3 103/ul Normal 0.0-0.7 [facility] Comment on above: Performed By: #### B MP, CMREP, LIPID #### [facility] [address] [place] [address] Dr. Jeimy Tenorio Eosinophils/100 WBC (Bld) 4.9 % Normal 0.9-7.0 [facility] Comment on above: Performed By: #### B MP, CMREP, LIPID #### [facility] [address] [place] [address] Dr. Jeimy Tenorio Erythrocyte distribution width (RBC) [Ratio] 13.2 % Normal 11.0-15.0 [facility] Comment on above: Performed By: #### B MP, CMREP, LIPID #### [facility] [address] [place] [address] Dr. Jeimy Tenorio Hematocrit (Bld) [Volume fraction] 42.3 % Normal 42.0-54.0 [facility] Comment on above: Performed By: #### B MP, CMREP, LIPID #### [facility] [address] [place] [address] Dr. Jeimy Tenorio Hemoglobin (Bld) [Mass/Vol] 13.8 g/dL Critically low 14.0-18.0 [facility] Comment on above: Performed By: #### B MP, CMREP, LIPID #### [facility] [address] [place] [address] Dr. Jeimy Tenorio IG # 0.02 10e3/ul Normal 0.00-0.03 [facility] Comment on above: Performed By: #### B MP, CMREP, LIPID #### [facility] [address] [address] [address] Jeimy Tenorio IG % 0.3 % Normal 0.0-0.5 [facility] Comment on above: Performed By: #### B MP, CMREP, LIPID #### [facility] [address] [place] [address] Dr. Jeimy Tenorio LYMPH # 1.3 103/ul Normal 1.2-3.8 [facility] Comment on above: Performed By: #### B MP, CMREP, LIPID #### [facility] [address] [place] [address] Dr. Jeimy Tenorio Lymphocytes/100 WBC (Bld) 19.5 % Critically low 20.5-60.0 [facility] Comment on above: Performed By: #### B MP, CMREP, LIPID #### [facility] [address] [place] [address] Dr. Jeimy Tenorio MANUAL DIFF REQ NO Normal [facility] Comment on above: Performed By: #### B MP, CMREP, LIPID #### [facility] [address] [place] [address] Dr. Jeimy Tenorio MCH (RBC) [Entitic mass] 32.9 pg Normal 25.9-34.0 [facility] Comment on above: Performed By: #### B MP, CMREP, LIPID #### [facility] [address] [place] [address] Dr. Jeimy Tenorio MCHC (RBC) [Mass/Vol] 32.6 g/dL Normal 29.9-35.2 [facility] Comment on above: Performed By: #### B MP, CMREP, LIPID #### [facility] [address] [place] [address] Dr. Jeimy Tenorio MCV (RBC) [Entitic vol] 100.7 fL Critically high 80.0-94.0 [facility] Comment on above: Performed By: #### B MP, CMREP, LIPID #### [facility] [address] [place] [address] Dr. Jeimy Tenorio MONO # 0.7 103/ul Normal 0.3-0.8 [facility] Comment on above: Performed By: #### B MP, CMREP, LIPID #### [facility] [address] [place] [address] Dr. Jemiy Tenorio Monocytes/100 WBC (Bld) 9.9 % Normal 1.7-12.0 [facility] Comment on above: Performed By: #### B MP, CMREP, LIPID #### [facility] [address] [place] [address] Dr. Jeimy Tenorio NEUT # 4.3 103/ul Normal 1.4-6.5 [facility] Comment on above: Performed By: #### B MP, CMREP, LIPID #### [facility] [address] [place] [address] Dr. Jeimy Tenorio Neutrophils/100 WBC (Bld) 64.2 % Normal 43.0-75.0 [facility] Comment on above: Performed By: #### B MP, CMREP, LIPID #### [facility] [address] [place] [address] Dr. Jeimy Tenorio Platelet mean volume (Bld) [Entitic vol] 10.4 fL Normal 9.5-13.5 [facility] Comment on above: Performed By: #### B MP, CMREP, LIPID #### [facility] [address] [place] [address] Dr. Jeimy Tenorio PLT 209 103/ul Normal 150-450 [facility] Comment on above: Performed By: #### B MP, CMREP, LIPID #### [facility] [address] [place] [address] Dr. Jeimy Tenorio RBC 4.20 106/ul Critically low 4.70-6.10 [facility] Comment on above: Performed By: #### B MP, CMREP, LIPID #### [facility] [address] [place] [address] Dr. Jeimy Tenorio WBC 6.7 103/ul Normal 4.0-11.0 [facility] Comment on above: Performed By: #### B MP, CMREP, LIPID #### [facility] [address] [address] [address] Jeimy Tenorio DILANTINon 09-29-2022 Phenytoin [Mass/Vol] 23.7 ug/mL Critically high 10.0-20.0 [facility] Comment on above: Performed By: #### C BC #### [facility] [address] [address] [address] Jeimy Tenorio GLYCOHEMOGLOBIN A1Con 2021 ADA RECOMMENDATION SEE BELOW Normal [facility] Comment on above: Result Comment: ADA RECOMMENDED LIMIT 4.0 - 6.0 ADA THERAPEUTIC TARGET < 7.0 ACTION SUGGESTED > 7.0 Performed By: #### A 1C #### [facility] [address] [place] [address] Dr. Jeimy Tenorio Glucose [Mass/Vol] 105 mg/dL Normal [facility] Comment on above: Performed By: #### A 1C #### [facility] [address] [place] [address] Dr. Jeimy Tenorio HbA1c (Bld) [Mass fraction] 5.3 % Normal 4.5-6.2 [facility] Comment on above: Performed By: #### A 1C #### [facility] [address] [place] [address] Dr. Jeimy Tenorio LIPID PROFILEon 09-29-2022 CHOL-HDL RATIO NORM SEE BELOW Normal [facility] Comment on above: Result Comment: 3.3 - 4.4 LOW RISK 4.4 - 7.1 AVERAGE RISK 7.1 - 11.0 MODERATE RISK >11.0 HIGH RISK Performed By: #### B MP, CMREP, LIPID #### [facility] [address] [place] [address] Dr. Jeimy Tenorio Cholesterol [Mass/Vol] 178 mg/dL Normal <=200 [facility] Comment on above: Performed By: #### B MP, CMREP, LIPID #### [facility] [address] [place] [address] Dr. Jeimy Tenorio Cholesterol in HDL [Mass/Vol] 56 mg/dL Normal 40-60 [facility] Comment on above: Performed By: #### B MP, CMREP, LIPID #### [facility] [address] [address] [address] Jeimy Tenorio Cholesterol in LDL [Mass/Vol] 86.8 mg/dL Normal [facility] Comment on above: Performed By: #### B MP, CMREP, LIPID #### [facility] [address] [address] [address] Jeimy Tenorio Cholesterol.total/Ch olesterol in HDL [Mass ratio] 3.2 {ratio} Normal [facility] Comment on above: Performed By: #### B MP, CMREP, LIPID #### [facility] [address] [address] [address] Jeimy Tenorio HDL NORMAL > or = 60 mg/dl - LO W CARDIOVASCULAR RISK <40 mg/dl - HIGH CARDIOVASCULAR RISK Normal [facility] Comment on above: Performed By: #### B MP, CMREP, LIPID #### [facility] [address] [place] [address] Dr. Jeimy Tenorio LDL CALC NORMAL SEE BELOW Normal [facility] Comment on above: Result Comment: <100 mg/dl OPTIMAL 100 - 129 mg/dl NEAR OR ABOVE OPTIMAL 130 - 159 mg/dl BORDERLINE HIGH 160 - 189 mg/dl HIGH >190 mg/dl VERY HIGH Performed By: #### B MP, CMREP, LIPID #### [facility] [address] [place] [address] Dr. Jeimy Tenorio Triglyceride [Mass/Vol] 176 mg/dL Critically high <=150 [facility] Comment on above: Performed By: #### B MP, CMREP, LIPID #### [facility] [address] [place] [address] Dr. Jeimy Tenorio VLDL CALC 35.2 mg/dL Normal [facility] Comment on above: Performed By: #### B MP, CMREP, LIPID #### [facility] [address] [place] [address] Dr. Jeimy Tenorio LIVER PROFILEon 09-29-2022 Albumin [Mass/Vol] 3.5 g/dL Normal 3.4-5.0 [facility] Comment on above: Performed By: #### B MP, CMREP, LIPID #### [facility] [address] [address] [address] Jeimy Tenorio Albumin/Globulin [Mass ratio] 0.8 {ratio} Normal [facility] Comment on above: Performed By: #### B MP, CMREP, LIPID #### [facility] [address] [address] [address] Jeimy Tenorio ALP [Catalytic activity/Vol] 139 U/L Critically high 46-116 [facility] Comment on above: Performed By: #### B MP, CMREP, LIPID #### [facility] [address] [address] [address] Jeimy Tenorio ALT [Catalytic activity/Vol] 25 U/L Normal 16-63 [facility] Comment on above: Performed By: #### B MP, CMREP, LIPID #### [facility] [address] [place] [address] Dr. Jeimy Tenorio AST [Catalytic activity/Vol] 23 U/L Normal 15-37 [facility] Comment on above: Performed By: #### B MP, CMREP, LIPID #### [facility] [address] [address] [address] Jeimy Tenorio BILI, CONJUGATED 0.0 mg/dL Normal 0.0-0.2 [facility] Comment on above: Performed By: #### B MP, CMREP, LIPID #### [facility] [address] [address] [address] Jeimy Tenorio Bilirubin [Mass/Vol] 0.3 mg/dL Normal 0.2-1.0 [facility] Comment on above: Performed By: #### B MP, CMREP, LIPID #### [facility] [address] [address] [address] Jeimy Tenorio Globulin (S) [Mass/Vol] 4.3 g/dL Normal [facility] Comment on above: Performed By: #### B MP, CMREP, LIPID #### [facility] [address] [address] [address] Jeimy Tenorio Protein [Mass/Vol] 7.8 g/dL Normal 6.4-8.2 [facility] Comment on above: Performed By: #### B MP, CMREP, LIPID #### [facility] [address] [place] [address] Dr. Jemiy Tenorio PROF CHEM 8 (BAS METB)on Anion gap [Moles/Vol] 8.7 mmol/L Normal [facility] Comment on above: Performed By: #### B MP, CMREP, LIPID #### [facility] [address] [place] [address] Dr. Jeimy Tenorio Calcium [Mass/Vol] 8.7 mg/dL Normal 8.5-10.1 [facility] Comment on above: Performed By: #### B MP, CMREP, LIPID #### [facility] [address] [place] [address] Dr. Jeimy Tenorio Chloride [Moles/Vol] 104 mmol/L Normal 98-107 [facility] Comment on above: Performed By: #### B MP, CMREP, LIPID #### [facility] [address] [place] [address] Dr. Jeimy Tenorio CO2 [Moles/Vol] 29.8 mmol/L Normal 21.0-32.0 [facility] Comment on above: Performed By: #### B MP, CMREP, LIPID #### [facility] [address] [place] [address] Dr. Jeimy Tenorio Creatinine [Mass/Vol] 0.76 mg/dL Normal 0.70-1.30 [facility] Comment on above: Performed By: #### B MP, CMREP, LIPID #### [facility] [address] [place] [address] Dr. Jeimy Tenorio EGFR-AF NIUEAN >60 Normal >=60 [facility] Comment on above: Performed By: #### B MP, CMREP, LIPID #### [facility] [address] [place] [address] Dr. Jeimy Tenorio EGFR-NON AF NIUEAN >60 Normal >=60 [facility] Comment on above: Performed By: #### B MP, CMREP, LIPID #### [facility] [address] [address] [address] Jeimy Tenorio Glucose [Mass/Vol] 95 mg/dL Normal 74-106 [facility] Comment on above: Performed By: #### B MP, CMREP, LIPID #### [facility] [address] [address] [address] Jeimy Tenorio Potassium [Moles/Vol] 4.5 mmol/L Normal 3.5-5.1 [facility] Comment on above: Performed By: #### B MP, CMREP, LIPID #### [facility] [facility] [address] [address] [address] Jeimy Tenorio Sodium [Moles/Vol] 138 mmol/L Normal 136-145 [facility] Comment on above: Performed By: #### B MP, CMREP, LIPID #### [facility] [address] [place] [address] Dr. Jeimy Tenorio Urea nitrogen [Mass/Vol] 18.0 mg/dL Normal 7.0-18.0 [facility] Comment on above: Performed By: #### B MP, CMREP, LIPID #### [facility] [address] [place] [address] Dr. Jeimy Tenorio Urea nitrogen/Creatinine [Mass ratio] 23.7 mg/mg Normal [facility] Comment on above: Performed By: #### B MP, CMREP, LIPID #### [facility] [address] [place] [address] Dr. Jeimy Tenorio TSHon 09-29-2022 TSH 1.694 uIU/mL Normal 0.358-3.740 [facility] Comment on above: Performed By: #### B MP, CMREP, LIPID #### [facility] [address] [place] [address] Dr. Jeimy Tenorio CARDIAC SAWYER 3-6on 2 CK [Catalytic activity/Vol] 47 U/L Normal 39-308 [facility] Comment on above: Performed By: #### B MP, CMREP, LIPID #### [facility] [address] [place] [address] Dr. Jeimy Tenorio CK.MB [Mass/Vol] 0.77 ng/mL Normal <=3.60 [facility] Comment on above: Performed By: #### B MP, CMREP, LIPID #### [facility] [address] [address] [address] Jeimy Tenorio HSTROP 6.9 pg/mL Normal 4.0-76.1 [facility] Comment on above: Result Comment: CUT- OFF POINTS HAVE BEEN ESTABLISHED BASED ON THE FOURTH UNIVERSAL DEFINITIONS OF MYOCARDIAL INFARCTION. THE UPPER REFERENCE LIMIT (URL) OF TROPONIN, DEFINED THE 99TH PERCENTILE OF cTnI DISTRIBUTION IN A REFERENCE POPULATION, HAS BEEN CONFIRMED THE DECISION THRESHOLD FOR [place] DIAGNOSIS. Performed By: #### B MP, CMREP, LIPID #### [facility] [address] [place] [address] Dr. Jeimy Tenorio CK [Catalytic activity/Vol] 53 U/L Normal 39-308 [facility] Comment on above: Performed By: #### C BC #### [facility] [address] [place] [address] Dr. Jeimy Tenorio CK.MB [Mass/Vol] 0.80 ng/mL Normal <=3.60 [facility] Comment on above: Performed By: #### C BC #### [facility] [address] [place] [address] Dr. Jeimy Tenorio HSTROP 6.2 pg/mL Normal 4.0-76.1 [facility] Comment on above: Result Comment: CUT- OFF POINTS HAVE BEEN ESTABLISHED BASED ON THE FOURTH UNIVERSAL DEFINITIONS OF MYOCARDIAL INFARCTION. THE UPPER REFERENCE LIMIT (URL) OF TROPONIN, DEFINED THE 99TH PERCENTILE OF cTnI DISTRIBUTION IN A REFERENCE POPULATION, HAS BEEN CONFIRMED THE DECISION THRESHOLD FOR [place] DIAGNOSIS. Performed By: #### C BC #### [facility] [address] [address] [address] Jeimy Tenorio CBC AUTO DIFFon 06-12-2022 BASO # 0.1 103/ul Normal 0.0-0.1 [facility] Comment on above: Performed By: #### C BC #### [facility] [address] [address] [address] Jeimy Tenorio Basophils/100 WBC (Bld) 0.9 % Normal 0.2-2.0 [facility] Comment on above: Performed By: #### C BC #### [facility] [address] [place] [address] Dr. Jeimy Tenorio EO # 0.3 103/ul Normal 0.0-0.7 [facility] Comment on above: Performed By: #### C BC #### [facility] [address] [place] [address] Dr. Jeimy Tenorio Eosinophils/100 WBC (Bld) 5.2 % Normal 0.9-7.0 [facility] Comment on above: Performed By: #### C BC #### [facility] [address] [place] [address] Dr. Jeimy Tenorio Erythrocyte distribution width (RBC) [Ratio] 13.0 % Normal 11.0-15.0 [facility] Comment on above: Performed By: #### C BC #### [facility] [address] [place] [address] Dr. Jeimy Tenoiro Hematocrit (Bld) [Volume fraction] 39.1 % Critically low 42.0-54.0 [facility] Comment on above: Performed By: #### C BC #### [facility] [address] [place] [address] Dr. Jeimy Tenorio Hemoglobin (Bld) [Mass/Vol] 13.2 g/dL Critically low 14.0-18.0 [facility] Comment on above: Performed By: #### C BC #### [facility] [address] [place] [address] Dr. Jeimy Tenorio IG # 0.03 10e3/ul Normal 0.00-0.03 [facility] Comment on above: Performed By: #### C BC #### [facility] [address] [place] [address] Dr. Jeimy Tenorio IG % 0.5 % Normal 0.0-0.5 [facility] Comment on above: Performed By: #### C BC #### [facility] [address] [place] [address] Dr. Jeimy Tenorio LYMPH # 1.7 103/ul Normal 1.2-3.8 [facility] Comment on above: Performed By: #### C BC #### [facility] [address] [place] [address] Dr. Jeimy Tenorio Lymphocytes/100 WBC (Bld) 26.0 % Normal 20.5-60.0 [facility] Comment on above: Performed By: #### C BC #### [facility] [address] [place] [address] Dr. Jeimy Tenorio MANUAL DIFF REQ NO Normal [facility] Comment on above: Performed By: #### C BC #### [facility] [address] [place] [address] Dr. Jeimy Tenorio MCH (RBC) [Entitic mass] 33.2 pg Normal 25.9-34.0 [facility] Comment on above: Performed By: #### C BC #### [facility] [address] [place] [address] Dr. Jeimy Tenorio MCHC (RBC) [Mass/Vol] 33.8 g/dL Normal 29.9-35.2 [facility] Comment on above: Performed By: #### C BC #### [facility] [address] [place] [address] Dr. Jeimy Tenorio MCV (RBC) [Entitic vol] 98.5 fL Critically high 80.0-94.0 [facility] Comment on above: Performed By: #### C BC #### [facility] [address] [place] [address] Dr. Jeimy Tenorio MONO # 0.8 103/ul Normal 0.3-0.8 [facility] Comment on above: Performed By: #### C BC #### [facility] [address] [place] [address] Dr. Jeimy Tenorio Monocytes/100 WBC (Bld) 12.2 % Critically high 1.7-12.0 [facility] Comment on above: Performed By: #### C BC #### [facility] [address] [place] [address] Dr. Jeimy Tenorio NEUT # 3.6 103/ul Normal 1.4-6.5 [facility] Comment on above: Performed By: #### C BC #### [facility] [address] [address] [address] Jeimy Tenorio Neutrophils/100 WBC (Bld) 55.2 % Normal 43.0-75.0 [facility] Comment on above: Performed By: #### C BC #### [facility] [id number] [address] Jeimy Tenorio Platelet mean volume (Bld) [Entitic vol] 9.9 fL Normal 9.5-13.5 [facility] Comment on above: Performed By: #### C BC #### [facility] [id number] [address] Jeimy Tenorio PLT 174 103/ul Normal 150-450 [facility] Comment on above: Performed By: #### C BC #### [facility] [address] [address] [address] Jeimy Tenorio RBC 3.97 106/ul Critically low 4.70-6.10 [facility] Comment on above: Performed By: #### C BC #### [facility] [id number] [address] Jeimy Tenorio WBC 6.5 103/ul Normal 4.0-11.0 [facility] Comment on above: Performed By: #### C BC #### [facility] [address] [place] [address] Dr. Jiemy Tenorio CTA CHEST WO W CONon 07-23-2 022 CTA CHEST WO W CON EXAM: CTA CHEST WO W CON 06/11/2022 10:05 PM EDT OH001 CLINICAL STATEMENT: CHEST PAIN, UNSPECIFIED COMPARISON: No prior studies are available at the time of dictation. TECHNIQUE: Helically acquired images were obtained of the chest following 100 cc of Omnipaque 350 IV contrast as per pulmonary angiogram protocol Coronal and sagittal MIP (maximum intensity projection) images were performed. Dose reduction techniques were achieved by using automated exposure control and/or adjustment of mA and/or kV according to patient size and/or use of iterative reconstruction technique. 2-D and 3D reconstructions were reviewed. FINDINGS: There is no evidence of pulmonary embolism, aortic aneurysm, or aortic dissection. The aortic arch branch vessels are grossly patent. The heart is not enlarged. Coronary atherosclerotic calcifications. There is no pericardial effusion or thickening. Stable small bilateral hilar and scattered mediastinal lymph nodes measuring up to 1 cm. Prominent right-sided mediastinal surgical clips. Right upper and right lower lobe peripheral fibrotic changes. No acute airspace disease. There are no pleural effusions. There are no enlarged (>3 mm) pulmonary nodules. There is no pneumothorax. There are no endobronchial lesions seen. The thyroid is homogeneous. No acute fracture. There are no destructive bone lesions identified. Multilevel degenerative changes of thoracic spine. Screening images of the upper abdomen are grossly unremarkable. IMPRESSION: No evidence for pulmonary embolism, aortic aneurysm, or aortic dissection. Right upper and right lower lobe peripheral fibrotic changes. No acute airspace disease. FOLLOW-UP: Follow-up as clinically indicated. Electronically authenticated by: MAMIE ALFORD Date: 2022-06-12 00:21 Normal [facility] Covid-19 PCR (CVDTBH)on 05-22 SARS-CoV-2 (COVID-19) RNA ALEX+probe Ql (Unsp spec) Not detected Normal NOT DETECTED [facility] Comment on above: Result Comment: When diagnostic testing is negative, the possibility of a false negative should be considered in the context of a patient's recent exposures and the presence of clinical signs and symptoms consistent with SARS-CoV-2. This test is not yet approved or cleared by the [place] FDA. When there are no FDA-approved or cleared tests available, and other criteria are met, FDA can make tests available under an emergency access mechanism called an Emergency Use Authorization (EUA). The EUA for this test is supported by the Food Safety Officer of Health and Human Service's declaration that circumstances exist to justify the emergency use of in vitro diagnostics for the detection and/or diagnosis of the virus that causes COVID-19. This EUA will remain in effect for the duration of the COVID-19 declaration justifying emergency of IVDs, unless it is terminated or revoked by the FDA (after which the test may no longer be used). Performed By: #### B MP, CMREP, LIPID #### [facility] [address] [address] [address] Jeimy Tenorio ER URINE PROFILEon 2 Bilirubin Ql (U) Negative Normal NEGATIVE [facility] Comment on above: Performed By: #### E RUR #### [facility] [address] [place] [address] Dr. Jeimy Tenorio Clarity (U) CLEAR Normal CLEAR [facility] Comment on above: Performed By: #### E RUR #### [facility] [address] [place] [address] Dr. Jeimy Tenorio Color (U) LT. YELLOW Normal YELLOW [facility] Comment on above: Performed By: #### E RUR #### [facility] [address] [place] [address] Dr. Jeimy BALES A micrscopic examination will be performed if indicated. Normal [facility] Comment on above: Performed By: #### E RUR #### [facility] [address] [place] [address] Dr. Jeimy Tenorio Glucose Ql (U) Negative Normal NEGATIVE [facility] Comment on above: Performed By: #### E RUR #### [facility] [address] [place] [address] Dr. Jeimy Tenorio Hemoglobin Ql (U) Negative Normal NEGATIVE [facility] Comment on above: Performed By: #### E RUR #### [facility] [address] [place] [address] Dr. Jeimy Tenorio Ketones Ql (U) TRACE Abnormal NEGATIVE [facility] Comment on above: Performed By: #### E RUR #### [facility] [address] [place] [address] Dr. Jeimy Tenorio LEUKOCYTES Negative Normal NEGATIVE [facility] Comment on above: Performed By: #### E RUR #### [facility] [address] [place] [address] Dr. Jeimy Tenorio Nitrite Ql (U) Negative Normal NEGATIVE [facility] Comment on above: Performed By: #### E RUR #### [facility] [address] [place] [address] Dr. Jeimy Tenorio pH (U) 5.5 [pH] Normal 5-9 [facility] Comment on above: Performed By: #### E RUR #### [facility] [address] [address] [address] Jeimy Tenorio SPEC GRAVITY 1.010 Normal 1.005-<=1.025 [facility] Comment on above: Performed By: #### E RUR #### [facility] [address] [address] [address] Jeimy Tenorio UA PROTEIN Negative Normal NEGATIVE/ TRACE [facility] Comment on above: Performed By: #### E RUR #### [facility] [address] [place] [address] Dr. Jeimy Tenorio UR MICRO IND NOT INDICATED Normal [facility] Comment on above: Performed By: #### E RUR #### [facility] [address] [place] [address] Dr. Jeimy Tenorio Urobilinogen Qn (U) 0.2 {Raphael'U}/dL Normal 0.2 - 1. 0 [facility] Comment on above: Performed By: #### E RUR #### [facility] [address] [place] [address] Dr. Jeimy Tenorio GLYCOHEMOGLOBIN A1Con 2021 ADA RECOMMENDATION SEE BELOW Normal [facility] Comment on above: Result Comment: ADA RECOMMENDED LIMIT 4.0 - 6.0 ADA THERAPEUTIC TARGET < 7.0 ACTION SUGGESTED > 7.0 Performed By: #### C BC #### [facility] [address] [place] [address] Dr. Jeimy Tenorio Glucose [Mass/Vol] 103 mg/dL Normal [facility] Comment on above: Performed By: #### C BC #### [facility] [address] [place] [address] Dr. Jeimy Tenorio HbA1c (Bld) [Mass fraction] 5.2 % Normal 4.5-6.2 [facility] Comment on above: Performed By: #### C BC #### [facility] [address] [place] [address] Dr. Jeimy Tenorio LIPID PROFILEon 06-12-2022 CHOL-HDL RATIO NORM SEE BELOW Normal [facility] Comment on above: Result Comment: 3.3 - 4.4 LOW RISK 4.4 - 7.1 AVERAGE RISK 7.1 - 11.0 MODERATE RISK >11.0 HIGH RISK Performed By: #### B MP, CMREP, LIPID #### [facility] [address] [address] [address] Jeimy Tenorio Cholesterol [Mass/Vol] 142 mg/dL Normal <=200 [facility] Comment on above: Performed By: #### B MP, CMREP, LIPID #### [facility] [address] [address] [address] Jeimy Tenorio Cholesterol in HDL [Mass/Vol] 49 mg/dL Normal 40-60 [facility] Comment on above: Performed By: #### B MP, CMREP, LIPID #### [facility] [address] [place] [address] Dr. Jeimy Tenorio Cholesterol in LDL [Mass/Vol] 64.6 mg/dL Normal [facility] Comment on above: Performed By: #### B MP, CMREP, LIPID #### [facility] [address] [place] [address] Dr. Jeimy Tenorio Cholesterol.total/Ch olesterol in HDL [Mass ratio] 2.9 {ratio} Normal [facility] Comment on above: Performed By: #### B MP, CMREP, LIPID #### [facility] [address] [place] [address] Dr. Jeimy Tenorio HDL NORMAL > or = 60 mg/dl - LO W CARDIOVASCULAR RISK <40 mg/dl - HIGH CARDIOVASCULAR RISK Normal [facility] Comment on above: Performed By: #### B MP, CMREP, LIPID #### [facility] [address] [place] [address] Dr. Jeimy Tenorio LDL CALC NORMAL SEE BELOW Normal [facility] Comment on above: Result Comment: <100 mg/dl OPTIMAL 100 - 129 mg/dl NEAR OR ABOVE OPTIMAL 130 - 159 mg/dl BORDERLINE HIGH 160 - 189 mg/dl HIGH >190 mg/dl VERY HIGH Performed By: #### B MP, CMREP, LIPID #### [facility] [address] [place] [address] Dr. Jeimy Tenorio Triglyceride [Mass/Vol] 142 mg/dL Normal <=150 [facility] Comment on above: Performed By: #### B MP, CMREP, LIPID #### [facility] [address] [place] [address] Dr. Jeimy Tenorio VLDL CALC 28.4 mg/dL Normal [facility] Comment on above: Performed By: #### B MP, CMREP, LIPID #### [facility] [address] [place] [address] Dr. Jeimy Tenorio PROF CHEM 8 (BAS METB)on Anion gap [Moles/Vol] 10.1 mmol/L Normal [facility] Comment on above: Performed By: #### B MP, CMREP, LIPID #### [facility] [address] [place] [address] Dr. Jeimy Tenorio Calcium [Mass/Vol] 8.0 mg/dL Critically low 8.5-10.1 [facility] Comment on above: Performed By: #### B MP, CMREP, LIPID #### [facility] [address] [place] [address] Dr. Jeimy Tenorio Chloride [Moles/Vol] 104 mmol/L Normal 98-107 [facility] Comment on above: Performed By: #### B MP, CMREP, LIPID #### [facility] [address] [place] [address] Dr. Jeimy Tenorio CO2 [Moles/Vol] 27.0 mmol/L Normal 21.0-32.0 [facility] Comment on above: Performed By: #### B MP, CMREP, LIPID #### [facility] [address] [place] [address] Dr. Jeimy Tenorio Creatinine [Mass/Vol] 0.79 mg/dL Normal 0.70-1.30 [facility] Comment on above: Performed By: #### B MP, CMREP, LIPID #### [facility] [address] [place] [address] Dr. Jeimy Tenorio EGFR-AF NIUEAN >60 Normal >=60 [facility] Comment on above: Performed By: #### B MP, CMREP, LIPID #### [facility] [address] [address] [address] Jeimy Tenorio EGFR-NON AF NIUEAN >60 Normal >=60 [facility] Comment on above: Performed By: #### B MP, CMREP, LIPID #### [facility] [address] [address] [address] Jeimy Tenorio Glucose [Mass/Vol] 101 mg/dL Normal 74-106 [facility] Comment on above: Performed By: #### B MP, CMREP, LIPID #### [facility] [address] [address] [address] Jeimy Tenorio Potassium [Moles/Vol] 4.1 mmol/L Normal 3.5-5.1 [facility] Comment on above: Performed By: #### B MP, CMREP, LIPID #### [facility] [address] [address] [address] Jeimy Tenorio Sodium [Moles/Vol] 137 mmol/L Normal 136-145 [facility] Comment on above: Performed By: #### B MP, CMREP, LIPID #### [facility] [address] [address] [address] Jeimy Tenorio Urea nitrogen [Mass/Vol] 15.0 mg/dL Normal 7.0-18.0 [facility] Comment on above: Performed By: #### B MP, CMREP, LIPID #### [facility] [address] [address] [address] Jeimy Tenorio Urea nitrogen/Creatinine [Mass ratio] 19.0 mg/mg Normal [facility] Comment on above: Performed By: #### B MP, CMREP, LIPID #### [facility] [address] [address] [address] Jeimy Tenorio CARDIAC SAWYER ADMITon 022 CK [Catalytic activity/Vol] 50 U/L Normal 39-308 [facility] Comment on above: Performed By: #### C BC #### [facility] [address] [address] [address] Jeimy Tenorio CK.MB [Mass/Vol] 0.80 ng/mL Normal <=3.60 [facility] Comment on above: Performed By: #### C BC #### [facility] [address] [place] [address] Dr. Jeimy Tenorio HSTROP 5.2 pg/mL Normal 4.0-76.1 [facility] Comment on above: Result Comment: CUT- OFF POINTS HAVE BEEN ESTABLISHED BASED ON THE FOURTH UNIVERSAL DEFINITIONS OF MYOCARDIAL INFARCTION. THE UPPER REFERENCE LIMIT (URL) OF TROPONIN, DEFINED THE 99TH PERCENTILE OF cTnI DISTRIBUTION IN A REFERENCE POPULATION, HAS BEEN CONFIRMED THE DECISION THRESHOLD FOR [place] DIAGNOSIS. Performed By: #### C BC #### [facility] [address] [place] [address] Dr. Jeimy Tenorio MAGALIE 41 ng/mL Normal 16-96 [facility] Comment on above: Performed By: #### C BC #### [facility] [address] [place] [address] Dr. Jeimy Tenorio CBC AUTO DIFFon 06-11-2022 BASO # 0.0 103/ul Normal 0.0-0.1 [facility] Comment on above: Performed By: #### C BC #### [facility] [address] [place] [address] Dr. Jeimy Tenorio Basophils/100 WBC (Bld) 0.6 % Normal 0.2-2.0 [facility] Comment on above: Performed By: #### C BC #### [facility] [address] [place] [address] Dr. Jeimy Tenorio EO # 0.4 103/ul Normal 0.0-0.7 [facility] Comment on above: Performed By: #### C BC #### [facility] [address] [place] [address] Dr. Jeimy Tenorio Eosinophils/100 WBC (Bld) 4.9 % Normal 0.9-7.0 [facility] Comment on above: Performed By: #### C BC #### [facility] [address] [place] [address] Dr. Jeimy Tenorio Erythrocyte distribution width (RBC) [Ratio] 13.1 % Normal 11.0-15.0 [facility] Comment on above: Performed By: #### C BC #### [facility] [address] [place] [address] Dr. Jeimy Tenorio Hematocrit (Bld) [Volume fraction] 38.1 % Critically low 42.0-54.0 [facility] Comment on above: Performed By: #### C BC #### [facility] [address] [place] [address] Dr. Jeimy Tenorio Hemoglobin (Bld) [Mass/Vol] 13.0 g/dL Critically low 14.0-18.0 [facility] Comment on above: Performed By: #### C BC #### [facility] [address] [place] [address] Dr. Jeimy Tenorio IG # 0.02 10e3/ul Normal 0.00-0.03 [facility] Comment on above: Performed By: #### C BC #### [facility] [address] [place] [address] Dr. Jeimy Tenorio IG % 0.3 % Normal 0.0-0.5 [facility] Comment on above: Performed By: #### C BC #### [facility] [address] [place] [address] Dr. Jeimy Tenorio LYMPH # 1.7 103/ul Normal 1.2-3.8 [facility] Comment on above: Performed By: #### C BC #### [facility] [address] [place] [address] Dr. Jeimy Tenorio Lymphocytes/100 WBC (Bld) 22.9 % Normal 20.5-60.0 [facility] Comment on above: Performed By: #### C BC #### [facility] [address] [place] [address] Dr. Jeimy Tenorio MANUAL DIFF REQ NO Normal [facility] Comment on above: Performed By: #### C BC #### [facility] [address] [place] [address] Dr. Jeimy Tenorio MCH (RBC) [Entitic mass] 33.5 pg Normal 25.9-34.0 [facility] Comment on above: Performed By: #### C BC #### [facility] [address] [address] [address] Jeimy Tenorio MCHC (RBC) [Mass/Vol] 34.1 g/dL Normal 29.9-35.2 [facility] Comment on above: Performed By: #### C BC #### [facility] [address] [place] [address] Dr. Jeimy Tenorio MCV (RBC) [Entitic vol] 98.2 fL Critically high 80.0-94.0 [facility] Comment on above: Performed By: #### C BC #### [facility] [address] [place] [address] Dr. Jeimy Tenorio MONO # 0.8 103/ul Normal 0.3-0.8 [facility] Comment on above: Performed By: #### C BC #### [facility] [address] [place] [address] Dr. Jeimy Tenorio Monocytes/100 WBC (Bld) 11.5 % Normal 1.7-12.0 [facility] Comment on above: Performed By: #### C BC #### [facility] [address] [place] [address] Dr. Jeimy Tenorio NEUT # 4.3 103/ul Normal 1.4-6.5 [facility] Comment on above: Performed By: #### C BC #### [facility] [address] [place] [address] Dr. Jeimy Tenorio Neutrophils/100 WBC (Bld) 59.8 % Normal 43.0-75.0 [facility] Comment on above: Performed By: #### C BC #### [facility] [address] [place] [address] Dr. Jeimy Tenorio Platelet mean volume (Bld) [Entitic vol] 9.8 fL Normal 9.5-13.5 [facility] Comment on above: Performed By: #### C BC #### [facility] [address] [place] [address] Dr. Jeimy Tenorio PLT 181 103/ul Normal 150-450 [facility] Comment on above: Performed By: #### C BC #### [facility] [address] [place] [address] Dr. Jeimy Tenorio RBC 3.88 106/ul Critically low 4.70-6.10 [facility] Comment on above: Performed By: #### C BC #### [facility] [address] [place] [address] Dr. Jeimy Tenorio WBC 7.2 103/ul Normal 4.0-11.0 [facility] Comment on above: Performed By: #### C BC #### [facility] [address] [place] [address] Dr. Jeimy Tenorio D-DIMERon 06-11-2022 D-DIMER 0.63 mg/L FEU Critically high <=0.59 [facility] Comment on above: Performed By: #### D DIM #### [facility] [address] [place] [address] Dr. Jeimy Tenorio D-DIMER COMMENTS SEE BELOW Normal [facility] Comment on above: Result Comment: Incr eases in D-Dimer concentration observed with thromboembolic events can be variable due to localization, size, and age of the thrombus. Therefore, a thromboembolic event cannot be diagnosed with certainty on the basis of the reference range. D-Dimers may also be elevated for a variety of disorders including: advanced age, , coronary disease, cancer, liver disease, infection, inflammation, hematoma, DIC, trauma, post-surgery, diabetes, thrombolytic or anticoagulant therapy, stress, and generalized hospitalization. Performed By: #### D DIM #### [facility] [address] [place] [address] Dr. Jeimy Tenorio PROF 14(COMP METB)on 022 Albumin [Mass/Vol] 3.3 g/dL Critically low 3.4-5.0 [facility] Comment on above: Performed By: #### C BC #### [facility] [address] [place] [address] Dr. Jeimy Tenorio Albumin/Globulin [Mass ratio] 0.8 {ratio} Normal [facility] Comment on above: Performed By: #### C BC #### [facility] [address] [place] [address] Dr. Jeimy Tenorio ALP [Catalytic activity/Vol] 160 U/L Critically high 46-116 [facility] Comment on above: Performed By: #### C BC #### [facility] [address] [address] [address] Jeimy Tenorio ALT [Catalytic activity/Vol] 26 U/L Normal 16-63 [facility] Comment on above: Performed By: #### C BC #### [facility] [address] [address] [address] Jeimy Tenorio Anion gap [Moles/Vol] 10.4 mmol/L Normal [facility] Comment on above: Performed By: #### C BC #### [facility] [address] [address] [address] Jeimy Tenorio AST [Catalytic activity/Vol] 16 U/L Normal 15-37 [facility] Comment on above: Performed By: #### C BC #### [facility] [address] [place] [address] Dr. Jeimy Tenorio Bilirubin [Mass/Vol] 0.2 mg/dL Normal 0.2-1.0 [facility] Comment on above: Performed By: #### C BC #### [facility] [address] [address] [address] Jeimy Tenorio Calcium [Mass/Vol] 8.2 mg/dL Critically low 8.5-10.1 Th [facility] Comment on above: Performed By: #### C BC #### [facility] [address] [address] [address] Jeimy Tenorio Chloride [Moles/Vol] 105 mmol/L Normal 98-107 [facility] Comment on above: Performed By: #### C BC #### [facility] [address] [address] [address] Jeimy Tenorio CO2 [Moles/Vol] 26.5 mmol/L Normal 21.0-32.0 [facility] Comment on above: Performed By: #### C BC #### [facility] [address] [address] [address] Jeimy Tenorio Creatinine [Mass/Vol] 0.96 mg/dL Normal 0.70-1.30 [facility] Comment on above: Performed By: #### C BC #### [facility] [address] [address] [address] Jeimy Tenorio EGFR-AF NIUEAN >60 Normal >=60 [facility] Comment on above: Performed By: #### C BC #### [facility] [address] [address] [address] Jeimy Tenorio EGFR-NON AF NIUEAN >60 Normal >=60 [facility] Comment on above: Performed By: #### C BC #### [facility] [address] [address] [address] Jeimy Tenorio Globulin (S) [Mass/Vol] 4.0 g/dL Normal [facility] Comment on above: Performed By: #### C BC #### [facility] [address] [address] [address] Jeimy Tenorio Glucose [Mass/Vol] 140 mg/dL Critically high 74-106 T [facility] Comment on above: Performed By: #### C BC #### [facility] [address] [address] [address] Jeimy Tenorio Potassium [Moles/Vol] 3.9 mmol/L Normal 3.5-5.1 [facility] Comment on above: Performed By: #### C BC #### [facility] [address] [address] [address] Jeimy Tenorio Protein [Mass/Vol] 7.3 g/dL Normal 6.4-8.2 [facility] Comment on above: Performed By: #### C BC #### [facility] [address] [address] [address] Jeimy Tenorio Sodium [Moles/Vol] 138 mmol/L Normal 136-145 [facility] Comment on above: Performed By: #### C BC #### [facility] [address] [address] [address] Jeimy Tenorio Urea nitrogen [Mass/Vol] 15.0 mg/dL Normal 7.0-18.0 [facility] Comment on above: Performed By: #### C BC #### [facility] [address] [address] [address] Jeimy Tenorio Urea nitrogen/Creatinine [Mass ratio] 15.6 mg/mg Normal [facility] Comment on above: Performed By: #### C BC #### [facility] [address] [address] [address] Jeimy Tenorio [facility] METABOLIC [facility] 10-30-2021 Albumin [Mass/Vol] 4.3 g/dL Normal 3.6-5.1 [facility] Comment on above: Performed By: #### 7 13, 0, 25764 #### [facility] [address] [address] Data Integrity Specialist: Yash Campuzano MD Albumin/Globulin [Mass ratio] 1.3 {ratio} Normal 1.0-2.5 [facility] Comment on above: Performed By: #### 7 13, 7599, 19895 #### [facility] [address] [place] [address] Data Integrity Specialist: Yash Campuzano MD ALP [Catalytic activity/Vol] 152 U/L High 35-144 [facility] Comment on above: Performed By: #### 7 13, 0, 85198 #### [facility] [address] [place] [address] Data Integrity Specialist: Yash Campuzano MD ALT [Catalytic activity/Vol] 30 U/L Normal 9-46 [facility] Comment on above: Performed By: #### 7 13, 0, 80899 #### [facility] [place] [address] Data Integrity Specialist: Yash Campuzano MD AST [Catalytic activity/Vol] 26 U/L Normal 10-35 [facility] Comment on above: Performed By: #### 7 13, 0, 72449 #### [facility] [address] [place] [address] Data Integrity Specialist: Yash Campuzano MD Bilirubin [Mass/Vol] 0.4 mg/dL Normal 0.2-1.2 [facility] Comment on above: Performed By: #### 7 13, 7599, 42455 #### [facility] of [address], [address] [place] [address] Data Integrity Specialist: Yash Campuzano MD BUN/CREATININE RATIO NOT APPLICABLE Normal 6-22 [facility] Comment on above: Performed By: #### 7 13, 7599, 88968 #### [facility] of [address], [address] [place] [address] Data Integrity Specialist: Yash Campuzano MD Calcium [Mass/Vol] 8.8 mg/dL Normal 8.6-10.3 [facility] Comment on above: Performed By: #### 7 , 7599, 64833 #### [facility] [address] [address] Data Integrity Specialist: Yash Campuzano MD Chloride [Moles/Vol] 104 mmol/L Normal 98-110 [facility] Comment on above: Performed By: #### 7 , 7599, 79349 #### [facility] [address], [address] [place] [address] Data Integrity Specialist: Yash Campuzano MD CO2 [Moles/Vol] 25 mmol/L Normal 20-32 [facility] Comment on above: Performed By: #### 7 , 7599, 40713 #### [facility] [address] [place] [address] Data Integrity Specialist: Yash Campuzano MD Creatinine [Mass/Vol] 0.76 mg/dL Normal 0.70-1.25 [facility] Comment on above: Result Comment: For patients >49 years of age, the reference limit for Creatinine is approximately 13% higher for people identified as -Indian. Performed By: #### 7 , 7599, 22182 #### [facility] [address] [address] Data Integrity Specialist: Yash Campuzano MD eGFR NON-AFR. NIUEAN 95 mL/min/1.73m2 Normal > OR = 60 [facility] Comment on above: Performed By: #### 7 , 7599, 71068 #### [facility] [address] [place] [address] Data Integrity Specialist: Yash Campuzano MD GFR/1.73 sq M.predicted among blacks MDRD (S/P/Bld) [Vol rate/Area] 110 mL/min/{1.73_m2} Normal > OR = 60 [facility] Comment on above: Performed By: #### 7 , 7599, 64160 #### [facility] [address] [place] [address] Data Integrity Specialist: Yash Campuzano MD Globulin (S) [Mass/Vol] 3.2 g/dL Normal 1.9-3.7 [facility] Comment on above: Performed By: #### 7 , 7599, 52119 #### [facility] [address] [place] [address] Data Integrity Specialist: Yash Campuzano MD Glucose [Mass/Vol] 103 mg/dL High 65-99 [facility] Comment on above: Result Comment: Fasting reference interval For someone without known diabetes, a glucose value between 100 and 125 mg/dL is consistent with prediabetes and should be confirmed with a follow-up test. Performed By: #### 7 , 7599, 18451 #### [facility] [address] [place] [address] Data Integrity Specialist: Yash Campuzano MD Potassium [Moles/Vol] 4.7 mmol/L Normal 3.5-5.3 [facility] Comment on above: Performed By: #### 7 , 7599, 92271 #### [facility] [address] [place] [address] Data Integrity Specialist: Yash Campuzano MD Protein [Mass/Vol] 7.5 g/dL Normal 6.1-8.1 [facility] Comment on above: Performed By: #### 7 , 7599, 45624 #### [facility] [address] [place] [address] Data Integrity Specialist: Yash Campuzano MD Sodium [Moles/Vol] 137 mmol/L Normal 135-146 [facility] Comment on above: Performed By: #### 7 13, 7600, 87847 #### [facility] [address], [address] [place] [address] Data Integrity Specialist: Yash Campuzano MD Urea nitrogen [Mass/Vol] 15 mg/dL Normal 7-25 [facility] Comment on above: Performed By: #### 7 13, 7600, 60656 #### [facility] [address], [address] [place] [address] Data Integrity Specialist: Yash Campuzano MD LIPID PANEL, [facility] 12-1 Cholesterol [Mass/Vol] 180 mg/dL Normal <200 [facility] Comment on above: Order Comment: FASTI NG:YES FASTING: YES Performed By: #### 7 13, 7600, 70729 #### [facility] [address], [address] [place] [address] Data Integrity Specialist: Yash Campuzano MD Cholesterol in HDL [Mass/Vol] 50 mg/dL Normal > OR = 40 [facility] Comment on above: Order Comment: FASTI NG:YES FASTING: YES Performed By: #### 7 13, 7600, 49031 #### [facility] [address] [place] [address] Data Integrity Specialist: Yash Campuzano MD Cholesterol in LDL [Mass/Vol] 90 mg/dL Normal [facility] Comment on above: Order Comment: FASTI NG:YES FASTING: YES Result Comment: Refe rence range: <100 Desirable range <100 mg/dL for primary prevention; <70 mg/dL for patients with CHD or diabetic patients with > or = 2 CHD risk factors. LDL-C is now calculated using the Heidi calculation, which is a validated novel method providing better accuracy than the Friedewald equation in the estimation of LDL-C. Gennaro ALMANZAR et al. KO. 2013;310(19): 1466-9110 (http://education.Daixe.Ecometrica/faq/JSM130) Performed By: #### 7 13, 7600, 29514 #### [facility] [address], [address] [place], [place] [address] Data Integrity Specialist: Yash Campuzano MD Cholesterol.total/Ch olesterol in HDL [Mass ratio] 3.6 {ratio} Normal <5.0 [facility] Comment on above: Order Comment: FASTI NG:YES FASTING: YES Performed By: #### 7 , 7600, 86512 #### [facility] [address], [address] [place] [address] Data Integrity Specialist: Yash Campuzano MD NON HDL CHOLESTEROL 130 mg/dL (calc) High <130 [facility] Comment on above: Order Comment: FASTI NG:YES FASTING: YES Result Comment: For patients with diabetes plus 1 major ASCVD risk factor, treating to a non-HDL-C goal of <100 mg/dL (LDL-C of <70 mg/dL) is considered a therapeutic option. Performed By: #### 7 , 7599, 51477 #### [facility] [address] [place] [address] Data Integrity Specialist: Yash Campuzano MD Triglyceride [Mass/Vol] 280 mg/dL High <150 [facility] Comment on above: Order Comment: FASTI NG:YES FASTING: YES Result Comment: If a non-fasting specimen was collected, consider repeat triglyceride testing on a fasting specimen if clinically indicated. Marquise et al. J. of Clin. Lipidol. 2015;9:129-169. Performed By: #### 7 , 7599, 93103 #### [facility] [address], [address] [place] [address] Data Integrity Specialist: Yash Campuzano MD PHENYTOINon 10-30-2021 Phenytoin [Mass/Vol] 18.9 ug/mL Normal 10.0-20.0 [facility] Comment on above: Performed By: #### 7 , 109, 46302 #### [facility] [address] [place] [address] Data Integrity Specialist: Yash Campuzano MD CBC (INCLUDES DIFF/PLT)on Basophils (Bld) [#/Vol] 0.071 10*3/uL Normal 0-200 [facility] Comment on above: Performed By: #### 7 13, 7599, 6399 #### [facility] of [address], [address] [place] [address] Data Integrity Specialist: Yash Campuzano MD Basophils/100 WBC (Bld) 1.2 % Normal [facility] Comment on above: Performed By: #### 7 13, 7599, 6399 #### [facility] of [address], [address] [place] [address] Data Integrity Specialist: Yash Campuzano MD Eosinophils (Bld) [#/Vol] 0.277 10*3/uL Normal 15-500 [facility] Comment on above: Performed By: #### 7 13, 7599, 6399 #### [facility] of [address], [address] [place] [address] Data Integrity Specialist: Yash Campuzano MD Eosinophils/100 WBC (Bld) 4.7 % Normal [facility] Comment on above: Performed By: #### 7 , 7599, 6399 #### [facility] [address] [place] [address] Data Integrity Specialist: Yash Campuzano MD Erythrocyte distribution width (RBC) [Ratio] 12.8 % Normal 11.0-15.0 [facility] Comment on above: Performed By: #### 7 , 7599, 6399 #### [facility] [address] [place] [address] Data Integrity Specialist: Yash Campuzano MD Hematocrit (Bld) [Volume fraction] 42.1 % Normal 38.5-50.0 [facility] Comment on above: Performed By: #### 7 , 7599, 6399 #### [facility] [address] [place] [address] Data Integrity Specialist: Yash Campuzano MD Hemoglobin (Bld) [Mass/Vol] 14.9 g/dL Normal 13.2-17.1 [facility] Comment on above: Performed By: #### 7 , 7599, 6399 #### [facility] of [address], [address] [place] [address] Data Integrity Specialist: Yash Campuzano MD Lymphocytes (Bld) [#/Vol] 1.068 10*3/uL Normal 850-3900 [facility] Comment on above: Performed By: #### 7 13, 760, 6399 #### [facility] of [address], [address] [place] [address] Data Integrity Specialist: Yash Campuzano MD Lymphocytes/100 WBC (Bld) 18.1 % Normal [facility] Comment on above: Performed By: #### 7 , 7599, 6399 #### [facility] [place] [address] Data Integrity Specialist: Yash Campuzano MD MCH (RBC) [Entitic mass] 32.9 pg Normal 27.0-33.0 [facility] Comment on above: Performed By: #### 7 , 7599, 6399 #### [facility] [address] [place] [address] Data Integrity Specialist: Yash Campuzano MD MCHC (RBC) [Mass/Vol] 35.4 g/dL Normal 32.0-36.0 [facility] Comment on above: Performed By: #### 7 13, 7599, 6399 #### [facility] [place] [address] Data Integrity Specialist: Yash Campuzano MD MCV (RBC) [Entitic vol] 92.9 fL Normal 80.0-100.0 [facility] Comment on above: Performed By: #### 7 , 7599, 6399 #### [facility] [place] [address] Data Integrity Specialist: Yash Campuzano MD Monocytes (Bld) [#/Vol] 0.531 10*3/uL Normal 200-950 [facility] Comment on above: Performed By: #### 7 , 7599, 6399 #### [facility] [place] [address] Data Integrity Specialist: Yash Campuzano MD Monocytes/100 WBC (Bld) 9.0 % Normal [facility] Comment on above: Performed By: #### 7 13, 7599, 6399 #### [facility] [place] [address] Data Integrity Specialist: Yash Campuzano MD Neutrophils (Bld) [#/Vol] 3.953 10*3/uL Normal 7623-0268 [facility] Comment on above: Performed By: #### 7 13, 7599, 6399 #### [facility] [place] [address] Data Integrity Specialist: Yash Campuzano MD Neutrophils/100 WBC (Bld) 67 % Normal [facility] Comment on above: Performed By: #### 7 13, 7599, 6399 #### [facility] [place] [address] Data Integrity Specialist: Yash Campuzano MD Platelet mean volume (Bld) [Entitic vol] 11.0 fL Normal 7.5-12.5 [facility] Comment on above: Performed By: #### 7 13, 7599, 6399 #### [facility] [place] [address] Data Integrity Specialist: Yash Campuzano MD Platelets (Bld) [#/Vol] 200 10*3/uL Normal 140-400 [facility] Comment on above: Performed By: #### 7 13, 7599, 6399 #### [facility] [place] [address] Data Integrity Specialist: Yash Campuzano MD RBC (Bld) [#/Vol] 4.53 10*6/uL Normal 4.20-5.80 [facility] Comment on above: Performed By: #### 7 13, 760, 6399 #### [facility] [place] [address] Data Integrity Specialist: Yash Campuzano MD WBC (Bld) [#/Vol] 5.9 10*3/uL Normal 3.8-10.8 [facility] Comment on above: Performed By: #### 7 13, 7600, 6399 #### [facility] [address], [address] [place] [address] Data Integrity Specialist: Yash Campuzano MD LIPID PANEL, [address] Cholesterol [Mass/Vol] 218 mg/dL High <200 [facility] Comment on above: Order Comment: FASTI NG:YES FASTING: YES Performed By: #### 7 13, 7600, 6399 #### [facility] [address], [address] [place] [address] Data Integrity Specialist: Yash Campuzano MD Cholesterol in HDL [Mass/Vol] 55 mg/dL Normal > OR = 40 [facility] Comment on above: Order Comment: FASTI NG:YES FASTING: YES Performed By: #### 7 13, 7600, 6399 #### [facility] [address], [address] [place] [address] Data Integrity Specialist: Yash Campuzano MD Cholesterol in LDL [Mass/Vol] 129 mg/dL High [facility] Comment on above: Order Comment: FASTI NG:YES FASTING: YES Result Comment: Refe rence range: <100 Desirable range <100 mg/dL for primary prevention; <70 mg/dL for patients with CHD or diabetic patients with > or = 2 CHD risk factors. LDL-C is now calculated using the Gennaro-Parvin calculation, which is a validated novel method providing better accuracy than the Friedewald equation in the estimation of LDL-C. Gennaro ALMANZAR et al. KO. 2013;310(19): 5835-7388 (http://education.Daixe.Ecometrica/faq/PJL267) Performed By: #### 7 13, 7600, 6399 #### [facility] [address], [address] [place] [address] Data Integrity Specialist: Yash Campuzano MD Cholesterol.total/Ch olesterol in HDL [Mass ratio] 4.0 {ratio} Normal <5.0 [facility] Comment on above: Order Comment: FASTI NG:YES FASTING: YES Performed By: #### 7 13, 7600, 6399 #### [facility] [address], [address] [place] [address] Data Integrity Specialist: aYsh Campuzano MD NON HDL CHOLESTEROL 163 mg/dL (calc) High <130 [facility] Comment on above: Order Comment: FASTI NG:YES FASTING: YES Result Comment: For patients with diabetes plus 1 major ASCVD risk factor, treating to a non-HDL-C goal of <100 mg/dL (LDL-C of <70 mg/dL) is considered a therapeutic option. Performed By: #### 7 , 217, 2771 #### [facility] [address], [address] [place] [address] Data Integrity Specialist: Yash Campuzano MD Triglyceride [Mass/Vol] 200 mg/dL High <150 [facility] Comment on above: Order Comment: FASTI NG:YES FASTING: YES Result Comment: If a non-fasting specimen was collected, consider repeat triglyceride testing on a fasting specimen if clinically indicated. Marquise et al. J. of Clin. Lipidol. 2015;9:129-169. Performed By: #### 7 929, 8159 #### [facility] [place] [address] Data Integrity Specialist: Yash Campuzano MD PHENYTOINon 04-18-2021 Phenytoin [Mass/Vol] 25.0 ug/mL High 10.0-20.0 [facility] Comment on above: Performed By: #### 7 , 959, 7624 #### [facility] [place] [address] Data Integrity Specialist: Yash Campuzano MD APTTon 11-20-2020 aPTT Coag (Bld) [Time] 33.4 s Normal 25.0-35.0 [facility] Comment on above: Result Comment: ALL RESULTS MUST BE INTERPRETED WITH RESPECT TO BLOOD DRAWING ARTIFACT OR DILUTION ERROR OF ANTICOAGULANT AT THE TIME OF SAMPLING. THE APTT SHOULD NOT BE USED TO MONITOR UNFRACTIONATED HEPARIN THERAPY, THIS LABORATORY NO LONGER HAS AN ESTABLISHED THERAPEUTIC RANGE BASED ON THE APTT. IT IS RECOMMENDED THAT THE [facility] - HEPARIN ASSAY (ANTI-XA ACTIVITY) BE USED FOR THIS PURPOSE. Performed By: #### 5 6101, 17048 ####[facility] BNP EDon 11-20-2020 Natriuretic peptide B (Bld) [Mass/Vol] 111 pg/mL High 0-100 [facility] Comment on above: Result Comment: Give n the appropriate clinical setting a BNP result of >100 pg/mL indicates congestive heart failure. Performed By: #### 3 0935 #### [facility] [address] CBC W/DIFFon 11-20-2020 ABS IMM GRANS 0.0 10*3/uL Normal 0.0-0.2 [facility] Comment on above: Performed By: #### 5 0103 ####[facility] ABS NEUTROPHILS 3.9 10*3/uL Normal 1.6-7.6 [facility] Comment on above: Performed By: #### 5 0103 ####[facility] [facility] Basophils (Bld) [#/Vol] 0.1 10*3/uL Normal 0.0-0.2 [facility] Comment on above: Performed By: #### 5 0103 ####[facility] Basophils/100 WBC (Bld) 1.0 % Normal 0.0-1.0 [facility] Comment on above: Performed By: #### 5 0103 ####[facility] Eosinophils (Bld) [#/Vol] 0.3 10*3/uL Normal 0.0-0.5 [facility] Comment on above: Performed By: #### 5 0103 ####[facility] [place] [address], [facility] Eosinophils/100 WBC (Bld) 5.1 % Normal 0.0-6.0 [facility] Comment on above: Performed By: #### 102 ####[facility] Erythrocyte distribution width (RBC) [Ratio] 13.1 % Normal 11.5-15.0 [facility] Comment on above: Performed By: #### 102 ####[facility] Hematocrit (Bld) [Volume fraction] 45.4 % Normal 39.0-50.0 [facility] Comment on above: Performed By: #### 102 ####[facility] Hemoglobin (Bld) [Mass/Vol] 14.8 g/dL Normal 13.0-17.0 [facility] Comment on above: Performed By: #### 102 ####[facility] IMMATURE GRANS 0.3 % Normal 0.0-1.0 The [facility] Comment on above: Performed By: #### 3 ####[facility] [facility].[address] Lymphocytes (Bld) [#/Vol] 1.0 10*3/uL Low 1.2-4.0 [facility] Comment on above: Performed By: #### 102 ####[facility] [place] [address], [facility] Lymphocytes/100 WBC (Bld) 17.5 % Low 20.0-45.0 [facility] Comment on above: Performed By: #### 5 0103 ####[facility] MCH (RBC) [Entitic mass] 32.5 pg Normal 27.0-33.0 [facility] Comment on above: Performed By: #### 5 3 ####[facility] MCHC (RBC) [Mass/Vol] 32.6 g/dL Normal 32.0-35.0 [facility] Comment on above: Performed By: #### 102 ####[facility] MCV (RBC) [Entitic vol] 99.6 fL High 82.0-98.0 [facility] Comment on above: Performed By: #### 102 ####[facility] Monocytes (Bld) [#/Vol] 0.6 10*3/uL Normal 0.1-1.0 [facility] Comment on above: Performed By: #### 102 ####[facility] MONOS 9.4 % Normal 5.0-12.0 [facility] Comment on above: Performed By: #### 5 3 ####[facility] Neutrophils/100 WBC (Bld) 66.7 % Normal 40.0-72.0 [facility] Comment on above: Performed By: #### 102 ####[facility] Nucleated RBC/100 WBC (Bld) [Ratio] 0 % Normal 0-0 [facility] Comment on above: Performed By: #### 102 ####[facility] [place] [address], [facility] PLAT CNT 175 10*3/uL Normal 150-400 [facility] Comment on above: Performed By: #### 5 0103 ####[facility] [place] [address], [facility] RBC (Bld) [#/Vol] 4.56 10*6/uL Normal 4.20-5.70 [facility] Comment on above: Performed By: #### 5 0103 ####[facility] [place] [address], [facility] WBC (Bld) [#/Vol] 5.88 10*3/uL Normal 4.00-10.60 [facility] Comment on above: Performed By: #### 5 0103 ####[facility] [place] [address], [facility] COMP METABOLIC PANELon 11-20 Albumin [Mass/Vol] 4.0 g/dL Normal 3.5-5.7 [facility] Comment on above: Performed By: #### 0 0121, 07679, 36635, 59309 #### [facility] 3000 [facility] [place] [address], [facility] ALKALINE PHOSPH 130 IU/L High 34-104 [facility] Comment on above: Performed By: #### 0 0121, 31033, 65132, 19460 #### [facility] [address] [facility] [place] [address], [facility] ALT [Catalytic activity/Vol] 18 U/L Normal 7-52 [facility] Comment on above: Performed By: #### 0 0121, 15246, 54087, 92941 #### [facility] [address] [place] [address], [facility] AST [Catalytic activity/Vol] 19 U/L Normal 13-39 [facility] Comment on above: Performed By: #### 0 0121, 93761, 48358, 13021 #### [facility] [address] [place] [address], [place] Bilirubin [Mass/Vol] 0.4 mg/dL Normal 0.3-1.0 [facility] Comment on above: Performed By: #### 0 0121, 97168, 09726, 27398 #### [facility] [address] [place] [address], [place] Calcium [Mass/Vol] 9.0 mg/dL Normal 8.6-10.3 [facility] Comment on above: Performed By: #### 0 0121, 73499, 71132, 75581 #### [facility] [address] [place] [address], [place] Chloride [Moles/Vol] 103 mmol/L Normal 98-107 [facility] Comment on above: Performed By: #### 0 0121, 59794, 32882, 21761 #### [facility] [address] [place] [address], [place] CO2 [Moles/Vol] 28 mmol/L Normal 21-31 [facility] Comment on above: Performed By: #### 0 0121, 86772, 53336, 74152 #### [facility] [address] [place] [address], [place] Creatinine [Mass/Vol] 0.77 mg/dL Normal 0.70-1.30 [facility] Comment on above: Performed By: #### 0 0121, 83495, 88556, 37561 #### [facility] [address] [place] [address], [place] GFR/1.73 sq M.predicted among blacks MDRD (S/P/Bld) [Vol rate/Area] mL/min/{1.73_m2} Normal >60 [facility] Comment on above: Performed By: #### 0 0121, 77140, 16716, 78276 #### [facility] [address] [place] [address], [place] GFR/1.73 sq M.predicted among non-blacks MDRD (S/P/Bld) [Vol rate/Area] mL/min/{1.73_m2} Normal >60 [facility] Comment on above: Performed By: #### 0 0121, 96457, 67264, 96350 #### [facility] [address] [place] [address], [place] Glucose [Mass/Vol] 88 mg/dL Normal 70-100 [facility] Comment on above: Performed By: #### 0 0121, 75711, 33441, 69561 #### [facility] [address] [place] [address], [place] Potassium [Moles/Vol] 4.9 mmol/L Normal 3.5-5.1 [facility] Comment on above: Performed By: #### 0 0121, 09363, 45855, 68306 #### [facility] [address] [place] [address], [place] Protein [Mass/Vol] 7.3 g/dL Normal 6.0-8.3 [facility] Comment on above: Performed By: #### 0 0121, 26157, 80340, 89619 #### [facility] [address] [place] [address], [place] Sodium [Moles/Vol] 138 mmol/L Normal 136-145 [facility] Comment on above: Performed By: #### 0 0121, 96503, 05240, 53563 #### [facility] [address] [place] [address], [place] Urea nitrogen [Mass/Vol] 15 mg/dL Normal 7-25 [facility] Comment on above: Performed By: #### 0 0121, 52699, 80222, 37376 #### [address] [place], [place] [id number] [place] [address] CTA HEADon 11-20-2020 CTA HEAD [facility] Department of Radiology [address] [place] [id number] Patient Name: NAZARIO CORTES : 1955 Sex: M Age: Race: White Pt. Location: [facility] Patient Status: E Ordered Date: 11/20/2020 11:20:00 AM Completed Date: 11/20/2020 12:11 PM Requesting Provider: MANUEL DUNN Attending Provider: KARINA JAY Report Copy To: Signs & Symptoms: Dizziness(vertigo) History: See Comments Comments: Bleed Exam: CTA HEAD CTA BRAIN COMPARISON: None. HISTORY: Dizziness. TECHNIQUE: 100 mL Omnipaque 350 nonionic contrast injected intravenously without reported complication. Axial images of the brain obtained with sagittal and coronal 2-D reformatted images. Multiplanar reformatted 3-D MIP images of the brain generated under concurrent physician and reviewed for assessment of the cerebral arteries. Automatic exposure control (AEC) was utilized. FINDINGS: No evidence for an aneurysm, vascular malformation, occlusion, or significant stenosis of the major vessels of the [place]. origin of bilateral posterior cerebral arteries. IMPRESSION: Normal CTA of the brain. All CT scans at this facility use dose modulation, iterative reconstruction, and/or weight based dosing when appropriate to reduce radiation dose to as low as reasonably achievable. Electronically signed: Dhaval Bain. Transcribed by: [email or web address], User Resident: Electronically Signed by: DHAVAL PARADISE @ 11/20/2020 12:58 PM Normal [facility] Comment on above: Order Comment: Bleed CTA NECKon 11-20-2020 CTA NECK [facility] Department of Radiology [address] [place] [id number] Patient Name: NAZARIO CORTES : 1955 Sex: M Age: Race: White Pt. Location: [facility] Patient Status: E Ordered Date: 11/20/2020 11:20:00 AM Completed Date: 11/20/2020 12:11 PM Requesting Provider: MANUEL DUNN Attending Provider: KARINA JAY Report Copy To: Signs & Symptoms: Dizziness History: See Comments Comments: Exam: CTA NECK CTA NECK 11/20/2020 12:11 PM CLINICAL INDICATIONS: Dizziness TECHNOLOGIST COMMENTS: dizziness on and off for awhile. PROTOCOL: Axial CT angiography images were obtained with IV contrast. CONTRAST: Contrast: OMNIPAQUE 350 (LOCM), 100 milliliter, Intravenous TECHNIQUE: Multi-detector CT angiography axial slices of the neck were obtained during intravenous administration of IV contrast material. Sagittal, coronal, and 3-D reconstructions were performed and viewed on a separate workstation. The [place] Symptomatic Carotid Endarterectomy Trial (NASCET) method for calculating the degree of stenosis was utilized for stenosis measurements. COMPARISON: None. FINDINGS: There is a 1.1 cm heterogeneous anterior left thyroid lobe nodule, nonspecific. Mild atherosclerotic plaque of bilateral internal carotid arteries without stenosis. Vertebral arteries are patent. Status post anterior and posterior cervical fusion. Prominent posterior lateral spurring with bilateral C3-4 neural foraminal narrowing. Additional multilevel neural foraminal narrowing also noted. IMPRESSION: 1. Nonspecific 1.1 cm left thyroid lobe nodule. Nonemergent thyroid ultrasound recommended. Next and 2. No evidence for stenosis of the carotid and vertebral arteries. All CT scans at this facility use dose modulation, iterative reconstruction, and/or weight based dosing when appropriate to reduce radiation dose to as low as reasonably achievable Electronically signed: Dhaval Bain. Transcribed by: [email or web address], User Resident: Electronically Signed by: DHAVAL BAIN @ 11/20/2020 12:57 PM Normal [facility] DIRECT BILIon 11-20-2020 Bilirubin.direct [Mass/Vol] 0.1 mg/dL Normal 0.0-0.2 [facility] Comment on above: Order Comment: Liver Battery conflicts with Comprehensive Metabolic Panel. Liver Battery canceled and Direct Bilirubin added. Performed By: #### 0 0121, 71535, 34239, 29275 #### [facility] [address] LIPASE BLOODon 11-20-2020 LIPASE 27 Units/L Normal 11-82 [facility] Comment on above: Performed By: #### 0 0121, 60965, 62121, 18516 #### [facility] [address] POC SARS COV2 ANTIGEN NEGATI VEon 11-20-2020 POC SARS COV2 ANTIGEN N Negative Normal NEGATIVE [facility] Comment on above: Result Comment: Test performed on Mimub Veritor System for rapid detection of SARS-CoV-2. Negative results are presumptive. Negative test results do not preclude infection and should not be used as sole basis for treatment or other patient management decisions, including infection control decisions, particularly in the presence of clinical signs and symptoms consistent with COVID-19, or in those who have been in contact with the virus. It is recommended that these results be confirmed by a molecular testing method, if necessary, for patient management. Performed By: #### 3 1919 #### [address] [place], [place] [address] [place] [address] PORTABLE CHEST 1 VIEWon 10-23 PORTABLE CHEST 1 VIEW [facility] Department of Radiology [address] [place] [id number] Patient Name: NAZARIO CORTES : 1955 Sex: M Age: Race: White Pt. Location: [facility] Patient Status: E Ordered Date: 11/20/2020 11:20:00 AM Completed Date: 11/20/2020 11:43 AM Requesting Provider: MANUEL DUNN Attending Provider: KARINA JAY Report Copy To: Signs & Symptoms: Chest Pain History: Comments: evaluate for Pneumonia Exam: PORTABLE CHEST 1 VIEW PORTABLE CHEST 1 VIEW 11/20/2020 11:43 AM CLINICAL INDICATIONS: Chest Pain TECHNOLOGIST COMMENTS: pt states he has shortness of breath and chest pain that started this morning QUESTION FOR THE RADIOLOGIST: evaluate for Pneumonia PROTOCOL: AP(PA) view was obtained. COMPARISON: None FINDINGS: Partially visualized posterior cervical fusion hardware. Anterior cervical fusion hardware. Postoperative surgical clips of the right hilum. The trachea is midline. Cardiac mediastinal silhouette is within normal limits. The right hemidiaphragm is obscured. No left pleural effusion. No large pneumothorax. Bilateral hazy opacifications of the lower lobes which may be secondary to overlying soft tissue. Likely right lung base atelectasis. IMPRESSION: Likely small right pleural effusion and right basilar atelectasis. Difficult to exclude superimposed pulmonary infiltrate. Postoperative changes of the right hilum. Approved by:Jessenia Arceo11/20/2020 11:52 AM. I, Dhaval Bain,have reviewed the images and reports Electronically signed: Dhaval Bain. Transcribed by: [email or web address], User Resident: JESSENIA ALFORD Electronically Signed by: DHAVAL BAIN @ 11/20/2020 12:32 PM I personally read this/these film(s) with this resident Normal [facility] Comment on above: Order Comment: evalu ate for Pneumonia PROTHROMBIN TIMEon 0 INR Coag (PPP) [Relative time] 0.95 {INR} Normal 0.91-1.16 [facility] Comment on above: Result Comment: ACCC P RECOMMENDED INR FOR WARFARIN THERAPY ------- ------- CONDITION INR PROPHYLAXIS OF VENOUS THROMBOSIS 2-3 (HIGH-RISK SURGERY) TREATMENT OF VENOUS THROMBOSIS 2-3 TREATMENT OF PULMONARY EMBOLISM 2-3 PREVENTION OF SYSTEMIC EMBOLISM: 2-3 ACUTE MYOCARDIAL INFARCTION TISSUE HEART VALVES VALVULAR HEART DISEASE ATRIAL FIBRILLATION RECURRENT SYSTEMIC EMBOLISM MECHANICAL HEART VALVE 2.5-3.5 FROM: ORAL ANTICOAGULANTS. MECHANISM OF ACTION, CLINICAL EFFECTIVENESS, AND OPTIMAL THERAPEUTIC RANGE. CHEST 1995;108:231S-246S. Performed By: #### 5 9811, 26613 ####[facility] PT Coag (PPP) [Time] 12.7 s Normal 12.3-14.8 [facility] Comment on above: Result Comment: ALL RESULTS MUST BE INTERPRETED WITH RESPECT TO BLOOD DRAWING ARTIFACT OR DILUTION ERROR OF ANTICOAGULANT AT THE TIME OF SAMPLING. Performed By: #### 5 6101, 86184 ####[facility] [place] [address], [facility] TROPONIN-Ion 11-20-2020 Troponin I.cardiac [Mass/Vol] 0.00 ng/mL Normal 0.00-0.04 [facility] Comment on above: Order Comment: No: D o not add to previous draw Result Comment: REFE RENCE RANGES: 0.00 - 0.14 ng/ml NEGATIVE 0.15 - 0.25 ng/ml INDETERMINATE > 0.25 ng/ml INDICATIVE OF AN M.I. Performed By: #### 3 5200 #### [facility] [address] Troponin I.cardiac [Mass/Vol] 0.00 ng/mL Normal 0.00-0.04 [facility] Comment on above: Result Comment: REFE RENCE RANGES: 0.00 - 0.14 ng/ml NEGATIVE 0.15 - 0.25 ng/ml INDETERMINATE > 0.25 ng/ml INDICATIVE OF AN M.I. Performed By: #### 0 0121, 41505, 38771, 18091 #### [facility] [address] Vital Signs Date Time Vital Sign Value Performing Clinician Facility 07-05-2023 10:00-0400 Body height 185.42 cm Luiz Riggs Other [facility] Other 07-05-2023 10:00-0400 Body mass index (BMI) [Ratio] 37.86 kg/m2 Luiz Riggs Other [facility] Other 07-05-2023 10:00-0400 Body weight 130.18 kg Luiz Riggs Other [facility] Other 07-05-2023 10:00-0400 Diastolic blood pressure 76 mm[Hg] Luiz Riggs Other [facility] Other 07-05-2023 10:00-0400 Systolic blood pressure 126 mm[Hg] Luiz Riggs Other [facility] Other 04-06-2022 17:40-0400 Body height 185.42 cm Neelam Morris Other [facility] Other 04-06-2022 17:40-0400 Body mass index (BMI) [Ratio] 36.15 kg/m2 Neelam Morris Other [facility] Other 04-06-2022 17:40-0400 Body temperature 98 [degF] Neelam Morris Other [facility] Other 04-06-2022 17:40-0400 Body weight 124.29 kg Neelam Blackburnmond Other [facility] Other 04-06-2022 17:40-0400 Diastolic blood pressure 69 mm[Hg] Neelam Morris Other [facility] Other 04-06-2022 17:40-0400 Respiratory rate 18 /min Neelam Morris Other [facility] Other 04-06-2022 17:40-0400 SaO2% (BldA) [Mass fraction] 95 % Neelam Blackburnmond Other [facility] Other 04-06-2022 17:40-0400 Systolic blood pressure 123 mm[Hg] Neelam Alexandra Other [facility] Other 12-28-2021 17:00-0500 Body height 185.42 cm Alex Bonilla Other [facility] Other 12-28-2021 17:00-0500 Body mass index (BMI) [Ratio] 37.47 kg/m2 Alex Bonilla Other [facility] Other 12-28-2021 17:00-0500 Body weight 128.82 kg Alex Bonilla Other [facility] Other Encounters Encounter Date Encounter Type Care Provider Facility Start: 12-30-2023 ambulatory Chris CAMARILLO Facili ty:[facility] Start: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
--- NOTE | 2023-12-30 22:50 | XR_ITS ---
The [address] [address] Patient Name: GÓMEZ CORTES MRN: [id number] date: 1955 Sex: M Assigned Patient Location: ER Current Patient Location: ER Accession/Order Number: [id number] Exam Date: 12/30/2023 22:58 Report Date: 12/30/2023 23:15 At the request of: RAMON MATTHEW Procedure: XR chest 1V CLINICAL HISTORY: Chest pain COMPARISON: Chest radiograph 06/20/2023 FINDINGS: Portable AP view of the chest obtained. Cardiomediastinal silhouette is chronically enlarged. Multiple surgical clips in the right hilum.. Lungs are clear, no evidence of infiltrate, suspicious nodule, or mass. No evidence of significant pleural fluid on this portable projection. No acute bony abnormality. XR/XR chest 1V IMPRESSION: No acute abnormality. Electronically authenticated by: EMILIA NAVARRETE Date: 12/30/2023 23:15
--- NOTE | 2023-12-30 22:50 | ECG_ITS ---
[facility] Test Date: 2023-12-30 Pat Name: GÓMEZ CORTES Department: Room: - Gender: Male [employer]: : 1955 Requested By: ADALID GONSALEZ Order Number: [id number] Reading MD: NICKI MIN Measurements Intervals [place] Rate: 69 P: 38 TX: 186 QRS: 4 QRSD: 86 T: 44 QT: 400 QTc: 420 Interpretive Statements 1100 Sinus rhythm 9110 normal ECG Compared to ECG 09/01/2023 17:08:01 First degree AV block no longer present Electronically Signed On 01-02-2024 6:43:54 EST by NICKI MIN
--- NOTE | 2023-12-30 22:50 | ED.CHESTPAI1 ---
HPI - Chest Pain General Chief Complaint: Chest Pain Stated Complaint: CP Time Seen by Provider: 12/30/23 22:40 Source: patient Mode of arrival: ambulance Limitations: no limitations History of Present Illness HPI narrative: 68-year-old male presents to the emergency department for chest pain. Its much better now. It started about 2 hours ago while he was sitting [facility] [employer]. He has had no fever or cough. He had pain across his upper chest, going from shoulder to shoulder and it went into his left arm. Seems to be much better and essentially gone now. When it was going on he felt a bit short of breath as well. He has no history of heart disease or congestive heart failure. His ankles are always swollen but they are a bit more so today than typical. Related Data Home Medications Medication Instructions Recorded Confirmed atorvastatin 10 mg tablet 10 mg PO .hs 05/12/23 12/30/23 citalopram 40 mg tablet 40 mg PO DAILY 05/12/23 12/30/23 meclizine 25 mg tablet 25 mg PO DAILY PRN dizziness 05/12/23 12/30/23 phenobarbital 32.4 mg tablet 32.4 mg PO Q12H 05/12/23 12/30/23 phenytoin sodium extended 100 mg 100 mg PO Q8H 05/12/23 12/30/23 capsule bupropion HCl 150 mg 24 hr tablet, mg PO 12/30/23 extended release Previous Rx's Medication Instructions Recorded diclofenac sodium 50 mg 50 mg PO Q12H PRN pain #10 tabs 09/11/23 tablet,delayed release diclofenac sodium 1 % topical gel 2 g topical QID PRN pain 5 days 09/20/23 (Voltaren Arthritis Pain) #100 grams Allergies Allergy/AdvReac Type Severity Reaction Status Date / Time gabapentin Allergy Intermediate Verified 12/30/23 22:49 oxycodone [From OxyContin] Allergy Intermediate Verified 12/30/23 22:49 phenytoin [From Dilantin] Allergy Intermediate Verified 12/30/23 22:49 Review of Systems ROS Narrative A ten point review of systems is negative except as noted above. PFSH PFSH Social History Smoking status: Never smoker Exam Narrative Exam Narrative: Nurses note and vital signs reviewed and patient is not hypoxic. General: The patient appears well and in no apparent distress. Patient is resting comfortably on cart. Skin: Warm, dry, no pallor noted. There is no rash noted. Head: Normocephalic, atraumatic Eye: Normal conjunctiva, no drainage Ears, Nose, Mouth, and Throat: oral mucosa is moist. Nares patent. Cardiovascular: Regular Rate and Rhythm Respiratory: Patient is in no distress, no accessory muscle use, lungs are clear to auscultation, no wheezing, rales or rhonchi Back: non-tender GI: Soft and nontender Musculoskeletal: Bilateral ankle edema present, right more so than left. 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 Neurological: A&O, normal speech Psychiatric: Cooperative Constitutional Vital Signs, click to edit/add: Last Vital Signs Temp 98.2 F 12/30/23 22:38 Pulse 71 12/31/23 00:10 Resp 15 12/31/23 00:10 BP 121/77 12/31/23 00:07 Pulse Ox 98 12/31/23 00:07 O2 Del Method Nasal Cannula 12/30/23 23:00 O2 Flow Rate 2 12/30/23 23:00 Course Vital Signs Vital signs: Vital Signs Temperature 98.2 F 12/30/23 22:38 Pulse Rate 73 12/30/23 22:38 Respiratory Rate 14 12/30/23 22:38 Blood Pressure 97/65 12/30/23 22:38 Pulse Oximetry 88 L 12/30/23 22:38 Oxygen Delivery Method Room Air 12/30/23 22:38 Temperature 98.2 F 12/30/23 22:38 Pulse Rate 71 12/31/23 00:10 Respiratory Rate 15 12/31/23 00:10 Blood Pressure 121/77 12/31/23 00:07 Pulse Oximetry 98 12/31/23 00:07 Oxygen Delivery Method Nasal Cannula 12/30/23 23:00 Oxygen Delivery Flow Rate 2 12/30/23 23:00 MDM - Chest Pain MDM Narrative Medical decision making narrative: 2 sets of troponin are negative. CTA does not show PE but does show CAD. He reports the heart catheterization in [facility] in 2008 which showed 20% and 30% lesions. He is already been given aspirin by paramedics. He is hemodynamically stable and is being admitted for observation. Treatment diagnosis and disposition were discussed with the patient. Differential Diagnosis Differential diagnosis: Likely pneumothorax, unstable angina pectoris, atypical chest pain, st elevation myocardial infarction, costochondritis, chest pain and other (Pulmonary embolism) Lab Data Attestation: I reviewed the patient's lab results. Labs: Lab Results 12/30/23 12/31/23 Range/Units 22:45 00:03 WBC 7.1 (4.0-11.0) 10^3/uL RBC 4.14 L (4.70-6.10) 10^6/uL Hgb 13.7 L (14.0-18.0) g/dL Hct 41.9 L (42.0-54.0) % MCV 101.2 H (80.0-94.0) fL MCH 33.1 (25.9-34.0) pg MCHC 32.7 (29.9-35.2) g/dL RDW 13.1 (11.0-15.0) % Plt Count 197 (150-450) 10^3/uL MPV 10.1 (9.5-13.5) fL Neut % (Auto) 62.0 (43.0-75.0) % Lymph % (Auto) 19.0 L (20.5-60.0) % Thayer % (Auto) 11.5 (1.7-12.0) % Eos % (Auto) 5.8 (0.9-7.0) % Baso % (Auto) 1.3 (0.2-2.0) % Neut # (Auto) 4.4 (1.4-6.5) 10^3/uL Lymph # (Auto) 1.3 (1.2-3.8) 10^3/uL Thayer # (Auto) 0.8 (0.3-0.8) 10^3/uL Eos # (Auto) 0.4 (0.0-0.7) 10^3/uL Baso # (Auto) 0.1 (0.0-0.1) 10^3/uL Abs Immat Gran (auto) 0.03 (0.00-0.03) 10^3/uL Imm/Tot Granulo (auto) 0.4 (0.0-0.5) % Sodium 141 (136-145) mmol/L Potassium 4.1 (3.5-5.1) mmol/L Chloride 105 (98-107) mmol/L Carbon Dioxide 26.0 (21.0-32.0) mmol/L Anion Gap 14.1 BUN 17.0 (7.0-18.0) mg/dL Creatinine 0.83 (0.70-1.30) mg/dL Est GFR ( Amer) >60 (>=60) Est GFR (Non-Af Amer) >60 (>=60) BUN/Creatinine Ratio 20.5 Glucose 88 (74-106) mg/dL Calcium 8.3 L (8.5-10.1) mg/dL Troponin I High Sens 5.1 4.1 (4.0-76.1) pg/mL NT-Pro-B Natriuret Pep 42.0 (<=900.0) pg/mL Imaging Data Chest x-ray: Radiologist's impression: ITS Impressions Chest X-Ray 12/30/23 22:50 IMPRESSION: No acute abnormality. Electronically authenticated by: EMILIA NAVARRETE Date: 12/30/2023 23:15 Chest CTA 12/30/23 23:48 IMPRESSION: 1. No CT evidence for acute pulmonary embolus. 2. Cardiomegaly with coronary artery disease. 3. Thyroid nodules. Outpatient thyroid ultrasound would help better delineate. 4. Mediastinal and hilar lymphadenopathy most likely reactive. 5. Groundglass opacities in the lungs. Please correlate for viral pneumonia. 6. Hepatomegaly with hepatic steatosis. Electronically authenticated by: ANA MURPHY Date: 12/31/2023 00:54 ECG Data Attestation: I personally reviewed and interpreted this ECG as follows: (EKG on my interpretation shows normal sinus rhythm without acute change) Heart Score History: Highly Suspicious ECG: Normal Age: >65 years Risk Factors: 1 or 2 Risk Factors Troponin: <Normal Limit Total Heart Score Recommendations & Risks:: 5 Discharge Plan Discharge Chief Complaint: Chest Pain Clinical Impression: Chest pain Patient Disposition: Admitted as Observation Time of Disposition Decision: 01:13 Condition: Good Prescriptions / Home Meds: No Action diclofenac sodium [Voltaren Arthritis Pain] 1 % gel 2 g topical QID PRN (Reason: pain) 5 Days Qty: 100 0RF Rx Instructions: apply to single elbow, wrist or hand; for hand includes palm/fingers/back of hand bupropion HCl 150 mg tablet extended release 24 hr PO atorvastatin 10 mg tablet 10 mg PO .hs citalopram 40 mg tablet 40 mg PO DAILY meclizine 25 mg tablet 25 mg PO DAILY PRN (Reason: dizziness) phenobarbital 32.4 mg tablet 32.4 mg PO Q12H phenytoin sodium extended 100 mg capsule 100 mg PO Q8H diclofenac sodium 50 mg tablet,delayed release (DR/EC) 50 mg PO Q12H PRN (Reason: pain) Qty: 10 0RF Referrals: Jignesh Manjarrez MD [Primary Care Provider] - 1 week
--- NOTE | 2023-12-30 23:11 | PC.NURSE ---
Patient to ED via EMS for chest pain, SOB and dizziness. At time of arrival, chest pain had resolved, main complaints were SOB and vertigo. Patient admits to hx of vertigo. He states no cardiac hx, however then goes on to mention that he has cardiac stents. 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 He is currently on 2 LPM oxygen per nc. He states that he is having pain down his left arm that is 2/10. Pain was 6/10 prior to getting nitro in EMS.
[2023-12-30 23:33] LABS: Basophils Absolute Auto 0.1 10^3/uL (0.0-0.1); Basophils Percent Auto 1.3 % (0.2-2.0); Eosinophils Absolute Auto 0.4 10^3/uL (0.0-0.7); Eosinophils Percent Auto 5.8 % (0.9-7.0); Hematocrit 41.9 % (42.0-54.0); Hemoglobin 13.7 g/dL (14.0-18.0); Immature Granulocytes Abs Auto 0.03 10^3/uL (0.00-0.03); Immature Granulocytes Pct Auto 0.4 % (0.0-0.5); Lymphocytes Absolute Auto 1.3 10^3/uL (1.2-3.8); Mean Corpuscular HGB Conc 32.7 g/dL (29.9-35.2); Mean Corpuscular Hemoglobin 33.1 pg (25.9-34.0); Mean Corpuscular Volume 101.2 fL (80.0-94.0); Mean Platelet Volume 10.1 fL (9.5-13.5); Monocytes Absolute Auto 0.8 10^3/uL (0.3-0.8); Monocytes Percent Auto 11.5 % (1.7-12.0); Neutrophils Absolute Auto 4.4 10^3/uL (1.4-6.5); Platelet Count 197 10^3/uL (150-450); Red Blood Count 4.14 10^6/uL (4.70-6.10); Red Cell Distribution Width 13.1 % (11.0-15.0); White Blood Count 7.1 10^3/uL (4.0-11.0)
[2023-12-30 23:45] LABS: Anion Gap 14.1; BUN Creatinine Ratio 20.5; Calcium 8.3 mg/dL (8.5-10.1); Chloride 105 mmol/L (98-107); Estimated GFR (African America >60 (>=60); Estimated GFR (Non-African Ame >60 (>=60); Glucose 88 mg/dL (74-106); Potassium 4.1 mmol/L (3.5-5.1); Sodium 141 mmol/L (136-145); Troponin I High Sensitivity 5.1 pg/mL (4.0-76.1)
--- NOTE | 2023-12-30 23:48 | CT_ITS ---
The [address] [address] Patient Name: GÓMEZ CORTES MRN: [id number] date: 1955 Sex: M Assigned Patient Location: ER Current Patient Location: ER Accession/Order Number: [id number] Exam Date: 12/30/2023 23:52 Report Date: 12/31/2023 00:54 At the request of: RAMON MATTHEW Procedure: CT angio chest EXAM: CTA CHEST WITH IV CONTRAST DATE OF EXAM: 12/30/2023 11:52 PM EST HISTORY: Shortness of breath. Elevated D-dimer. Sob 68-year-old male bladder cancer. COMPARISON: 09/01/2023 CTA chest TECHNIQUE: Multiple axial images are taken from the level of the thyroid down through the upper abdomen with the use of IV contrast. Images are then reconstructed in the sagittal and coronal planes. This exam was performed according to our departmental dose-optimization program which includes use of Automated Exposure Control, adjustment of the mA and/or kV according to patient size and/or use of iterative reconstruction technique. Postprocessing was performed as per hospital protocol: Maximum intensity projection (MIPs) Contrast Used: 100 ml of Omnipaque 350 FINDINGS: Correction Officer Supervisor: Unremarkable. Lines and Tubes: None. Lungs: Lungs are hyperexpanded with groundglass opacities demonstrated. These are new and increased compared to prior exam. Pleura: Normal Thyroid: Thyroid nodules demonstrated bilaterally with the largest seen in the left lobe with calcification measuring 15mm. Aorta: Normal. Pulmonary artery: Pulmonary artery measures within normal. No pulmonary embolus allowing for bolus timing and mixing artifact Heart: The heart is enlarged. Coronary artery calcifications are present. Trachea/Bronchi: Well aerated. No intraluminal masses. Esophagus: Small hiatal hernia with surgical clips demonstrated causing streak artifact Lymph Nodes: Subcentimeter lymph nodes are demonstrated largest seen at the level of the kevin measures 13 mm in short axis Shauna lymph nodes measure enlarged at 17 mm bilaterally. Chest wall: Normal. Osseous Structures: Degenerative change. Postoperative changes of the cervical spine are incompletely imaged. Subdiaphragm: Subdiaphragmatic abdominal organs included in the [id number] demonstrate an enlarged fatty infiltrated liver with removal of gallbladder. Small hiatal hernia. CT/CT angio chest IMPRESSION: 1. No CT evidence for acute pulmonary embolus. 2. Cardiomegaly with coronary artery disease. 3. Thyroid nodules. Outpatient thyroid ultrasound would help better delineate. 4. Mediastinal and hilar lymphadenopathy most likely reactive. 5. Groundglass opacities in the lungs. Please correlate for viral pneumonia. 6. Hepatomegaly with hepatic steatosis. Electronically authenticated by: ANA MURPHY Date: 12/31/2023 00:54
[2023-12-31] VITALS (21 sets, daily range): BP systolic 116–158; BP diastolic 65–78; PULSE 68–88; RESP 13–25; TEMP 36.2–37; O2SAT 94–98; BMI 38.7
[2023-12-31 00:30] LABS: Troponin I High Sensitivity 4.1 pg/mL (4.0-76.1)
[2023-12-31] MEDS: PHENYTOIN SODIUM EXTENDED 100 MG CAPSULE PO ×3 (00:57→09:29)
[2023-12-31] MEDS: PHENobarbitaL 32.4 MG TABLET 64.8 MG PO (01:13)
[2023-12-31] MEDS: ATORVASTATIN CALCIUM 10 MG TABLET PO (01:13)
--- OUTSIDE RECORDS SUMMARY | 2023-12-31 01:31 | XMS_ITS | CCD ---
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 Name Role Phone KARINA JAY Attending Unavailable SELF, REFERRED Referring Unavailable JOSE MARIE Primary Care Unavailable JOHN MEJÍA Admitting Unavailable Alex Bonilla Unavailable Neelam Morris Unavailable AME, DR JOSE Danielson Admitting Unavailable FURLONG, DR OJSE Danielson Attending Unavailable WALLACE, DR JIGNESH Means [...] Provider MD Jignesh Gonsalez Primary Care Provider [phone] Luiz Riggs Attending Unavailable Luiz Riggs Admitting Unavailable Jignesh Gonsalez Primary Care Unavailable JIGNESH GONSALEZ Primary Care Physician [phone] JIGNESH GONSALEZ Attending Unavailable JIGNESH GONSALEZ Attending Unavailable ROGERIO BAINS Referring Unavailable Jose Marie DO Primary Care Provider Chris CAMARILLO Attending Unavailable JIGNESH GONSALEZ Referring Unavailable Chris CAMARILLO Attending Unavailable Allergies Allergy Classification Reported Allergen(s) Allergy Type Date of Onset Reaction(s) Facility (4 sources) gabapentin; Translations: [GABAPENTIN] Drug Allergy 0 [facility] (2 sources) oxyCODONE Drug Allergy 0 [facility] (3 sources) Phenytoin; Translations: [Dilantin] Drug Allergy 0 [facility] (5 sources) gabapentin; Translations: [gabapentin] Drug Allergy 0 Unknown (qualifier value) [facility] (7 sources) oxyCODONE; Translations: [oxycodone] Drug Allergy 0 Difficulty breathing (finding), Angioedema [facility] (5 sources) Phenytoin; Translations: [phenytoin] Drug Allergy 6 Dizziness (finding), Dizziness [facility] (1 source) ALLERGIES NOT ON FILE; Translations: [ALLERGIES NOT ON FILE] Propensity to adverse reactions (disorder) [facility] (1 source) Phenytoin; Translations: [PHENYTOIN SODIUM EXTENDED] Drug Allergy 6 [facility] Medications Current Medications Medication Drug Class(es) Dates Sig (Normalized) Sig (Original) Acetaminophen / HYDROcodone (2 sources) Opioid Agonist Ranger Active take 1 tablet by ambika th [...] 2 mg/ml injectable solution (1 source) vit [id number]-B5- B6 (B-COMPLEX INJECTION) 114-6-662-2-2 mg/mL solution B-Complex 1 QD 0 Active [...] 0 Active Meloxicam Not-Ta noa Meloxicam Active noibonuebosz-glvpzrjd-rcqhtf (MULTIVITAMIN 50 PLUS) tablet (1 source) multivitamin-min [...] 08/30/2022 Active take 1 capsule by mo [facility] every twelve hours Phenytoin Sodium Extended 100 [...] disease (1 source) Atherosclerotic heart disease of [place] coronary artery without angina pectoris; Translations: [ASHD LUMBEE CA W/O ANGINA PECTORIS] Onset: 12-27-2022 Chronic [...] 08-16-2022 08-16-2022 Chronic Other aftercare (1 source) 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; Translations: [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 USE OF ASPIRIN] Onset: 12-27-2022 Episodic Other aftercare (1 source) 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; Translations: [OTH 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 DRUG THERAPY] Onset: 12-27-2022 Episodic Other [...] 07-05-2023 XR lumbar spine 6V w bending [facility] [place] [address] [place] [address] XRay Report Signed Patient: Nazario Cortes Jr MR#: [id number] : 1955 Acct:[id number] Age/Sex: 68 / M ADM Date: 07/05/23 Loc: XD Room: Type: [facility] Attending Dr: Luiz Riggs MD Copies to: [...] Hoa Lockwood M.D.07/05/2023 2:21 PM Dictation Location: [place] [address] Transcribed By: [facility] 07/05/23 1421 Dictated By: Hoa Lockwood MD 07/05/23 1415 Signed By: 07/05/23 1421 Normal [facility] US CAROTID ART BILon 023 US CAROTID [...] by: KELL BLANDON Date: 2023-01-11 08:42 Normal [facility] ECHOCARDIO M/2D COMPLETEon 0 01-07-2023 ECHOCARDIO M/2D COMPLETE Patient: NAZARIO CORTES Exam Date: 01/07/2023 : 1955 Gender:M Ordering : DR JIGNESH GONSALEZ . Admission #: [id number] Family : Order #: [id number] CLICK HERE TO VIEW EXAM ECHOCARDIOGRAM REPORT [...] Smith M.D. on 01/11/2023 at 18:23 Normal [facility] XR ELBOW LT MIN 3 VIEWSon XR [...] by: VIDAL FRASER Date: 2022-12-24 20:23 Normal [facility] XR HIP LT 2 3V W PELVISon [...] VIDAL FRASER Date: 2022-12-24 20:21 Normal [facility] XR HUMERUS LT MIN 2Von 12-24 XR [...] KELL DELANEY Date: 2022-12-24 21:03 Normal [facility] CBC AUTO DIFFon 11-04-2022 BASO # 0.1 103/ul Normal 0.0-0.1 [facility] Comment on above: Performed By: #### B MP, CMREP, LIPID #### [facility] [address] [place] [address] Dr. Jeimy Tenorio Basophils/100 WBC (Bld) 0.9 % Normal 0.2-2.0 [facility] Comment on above: Performed By: #### B MP, CMREP, LIPID #### [facility] [address] [place] [address] Dr. Jeimy Tenorio EO # 0.3 103/ul Normal 0.0-0.7 [facility] Comment on above: Performed By: #### B MP, CMREP, LIPID #### [facility] [address] [place] [address] [address] Jeimy Tenorio Eosinophils/100 WBC (Bld) 5.2 % Normal 0.9-7.0 [facility] Comment on above: Performed By: #### B MP, CMREP, LIPID #### [facility] [address] [place] [address] Dr. Jeimy Tenorio Erythrocyte distribution width (RBC) [Ratio] 12.9 % Normal 11.0-15.0 [facility] Comment on above: Performed By: #### B MP, CMREP, LIPID #### [facility] [address] [place] [address] Dr. Jeimy Tenorio Hematocrit (Bld) [Volume fraction] 39.5 % Critically low 42.0-54.0 [facility] Comment on above: Performed By: #### B MP, CMREP, LIPID #### [facility] [address] [place] [address] Dr. Jeimy Tenorio Hemoglobin (Bld) [Mass/Vol] 13.1 g/dL Critically low 14.0-18.0 [facility] Comment on above: Performed By: #### B MP, CMREP, LIPID #### [facility] [address] [place] [address] [address] Jeimy Tenorio IG # 0.03 10e3/ul Normal 0.00-0.03 [facility] Comment on above: Performed By: #### B MP, CMREP, LIPID #### [facility] [address] [place] [address] Dr. Jeimy Tenorio IG % 0.5 % Normal 0.0-0.5 [facility] Comment on above: Performed By: #### B MP, CMREP, LIPID #### [facility] [address] [place] [address] Dr. Jeimy Tenorio LYMPH # 1.5 103/ul Normal 1.2-3.8 [facility] Comment on above: Performed By: #### B MP, CMREP, LIPID #### [facility] [address] [place] [address] Dr. Jeimy eTnorio Lymphocytes/100 WBC (Bld) 22.6 % Normal 20.5-60.0 [facility] Comment on above: Performed By: #### B MP, CMREP, LIPID #### [facility] [address] [place] [address] Dr. Jeimy Tenorio MANUAL DIFF REQ NO Normal [facility] Comment on above: Performed By: #### B MP, CMREP, LIPID #### [facility] [address] [place] [address] Dr. Jeimy Tenorio MCH (RBC) [Entitic mass] 32.8 pg Normal 25.9-34.0 [facility] Comment on above: Performed By: #### B MP, CMREP, LIPID #### [facility] [address] [place] [address] Dr. Jeimy Tenorio MCHC (RBC) [Mass/Vol] 33.2 g/dL Normal 29.9-35.2 [facility] Comment on above: Performed By: #### B MP, CMREP, LIPID #### [facility] [address] [place] [address] Dr. Jeimy Tenorio MCV (RBC) [Entitic vol] 99.0 fL Critically high 80.0-94.0 [facility] Comment on above: Performed By: #### B MP, CMREP, LIPID #### [facility] [address] [place] [address] Dr. Jeimy Tenorio MONO # 0.7 103/ul Normal 0.3-0.8 [facility] Comment on above: Performed By: #### B MP, CMREP, LIPID #### [facility] [address] [place] [address] Dr. Jeimy Tenorio Monocytes/100 WBC (Bld) 10.6 % Normal 1.7-12.0 [facility] Comment on above: Performed By: #### B MP, CMREP, LIPID #### [facility] [address] [place] [address] Dr. Jeimy Tenorio NEUT # 4.0 103/ul Normal 1.4-6.5 [facility] Comment on above: Performed By: #### B MP, CMREP, LIPID #### [facility] [address] [place] [address] Dr. Jeimy Tenorio Neutrophils/100 WBC (Bld) 60.2 % Normal 43.0-75.0 [facility] Comment on above: Performed By: #### B MP, CMREP, LIPID #### [facility] [address] [place] [address] Dr. Jeimy Tenorio Platelet mean volume (Bld) [Entitic vol] 9.7 fL Normal 9.5-13.5 [facility] Comment on above: Performed By: #### B MP, CMREP, LIPID #### [facility] [address] [place] [address] [address] Jeimy Tenorio PLT 176 103/ul Normal 150-450 [facility] Comment on above: Performed By: #### B MP, CMREP, LIPID #### [facility] [address] [place] [address] [address] Jeimy Tenorio RBC 3.99 106/ul Critically low 4.70-6.10 [facility] Comment on above: Performed By: #### B MP, CMREP, LIPID #### [facility] [address] [place] [address] [address] Jeimy Tenorio WBC 6.6 103/ul Normal 4.0-11.0 [facility] Comment on above: Performed By: #### B MP, CMREP, LIPID #### [facility] [address] [address] HEAD WO CONon [...] ALEJANDRO PINEDA Date: 2022-11-04 14:08 Normal [facility] Covid-19 PCR (CVDTBH)on 10-21 SARS-CoV-2 (COVID-19) RNA ALEX+probe Ql (Unsp spec) Not detected Normal NOT DETECTED [facility] Comment on above: Result Comment: This test is not yet approved or cleared by the [place] FDA. When there are no FDA-approved or cleared tests available, and other criteria are met, FDA can make tests available under an emergency access mechanism called an Emergency Use Authorization (EUA). The EUA for this test is supported by the [place] of Health and Human Service's (HHS's) declaration [...] By: #### B MP, CMREP, LIPID #### [facility] [address] [place] [address] Dr. Jeimy Tenorio INFLUENZA A AND B AGon 11-04 INFLUANEGH SEE BELOW Normal [facility] Comment on above: Result Comment: Nega tive for Flu A protein angiten. Infection due to Flu A cannot be ruled out. Flu A angiten in the sample may be below the detection limit of the test. Performed By: #### I NFLUAB #### [facility] [address] [place] [address] Dr. Jeimy Tenorio INFLUBNEGH SEE BELOW Normal [facility] Comment on above: Result Comment: Nega tive for Flu B protein antigen. Infection due to Flu B cannot be ruled out. Flu B antigen in the sample may be below the detection limit of the test. Performed By: #### I NFLUAB #### [facility] [address] [place] [address] Dr. Jeimy Tenorio INFLUENZA A AG Negative Normal NEGATIVE SEE COMMENT [facility] Comment on above: Performed By: #### I NFLUAB #### [facility] [address] [place] [address] [address] Jeimy Tenorio INFLUENZA B AG Negative Normal NEGATIVE SEE COMMENT [facility] Comment on above: Performed By: #### I NFLUAB #### [facility] [address] [place] [address] [address] Jeimy Tenorio INTERNAL CONTROLS Within Normal Limits Normal Wi thin Normal Limits [facility] Comment on above: Performed By: #### I NFLUAB #### [facility] [address] [place] [address] [address] Jeimy Tenorio PROF CHEM 8 (BAS METB)on Anion gap [Moles/Vol] 9.7 mmol/L Normal [facility] Comment on above: Performed By: #### C BC #### [facility] [address] [place] [address] Dr. Jeimy Tenorio Calcium [Mass/Vol] 8.0 mg/dL Critically low 8.5-10.1 [facility] Comment on above: Performed By: #### C BC #### [facility] [address] [place] [address] Dr. Jeimy Tenorio Chloride [Moles/Vol] 104 mmol/L Normal 98-107 [facility] Comment on above: Performed By: #### C BC #### [facility] [address] [place] [address] Dr. Jeimy Tenorio CO2 [Moles/Vol] 31.1 mmol/L Normal 21.0-32.0 [facility] Comment on above: Performed By: #### C BC #### [facility] [address] [place] [address] Dr. Jeimy Tenorio Creatinine [Mass/Vol] 0.75 mg/dL Normal 0.70-1.30 [facility] Comment on above: Performed By: #### C BC #### [facility] [address] [place] [address] Dr. Jeimy Tenorio EGFR-AF SALVADOREAN >60 Normal >=60 [facility] Comment on above: Performed By: #### C BC #### [facility] [address] [address] [address] Jeimy Tenorio EGFR-NON AF [place]AN >60 Normal >=60 [facility] Comment on above: Performed By: #### C BC #### [facility] [address] [address] [address] Jeimy Tenorio Glucose [Mass/Vol] 76 mg/dL Normal 74-106 [facility] Comment on above: Performed By: #### C BC #### [facility] [address] [address] [address] Jeimy Tenorio Potassium [Moles/Vol] 3.8 mmol/L Normal 3.5-5.1 [facility] Comment on above: Performed By: #### C BC #### [facility] [address] [address] [address] Jeimy Tenorio Sodium [Moles/Vol] 141 mmol/L Normal 136-145 [facility] Comment on above: Performed By: #### C BC #### [facility] [address] [address] [address] Jeimy Tenorio Urea nitrogen [Mass/Vol] 12.0 mg/dL Normal 7.0-18.0 [facility] Comment on above: Performed By: #### C BC #### [facility] [address] [address] [address] Jeimy Tenorio Urea nitrogen/Creatinine [Mass ratio] 16.0 mg/mg Normal [facility] Comment on above: Performed By: #### C BC #### [facility] [address] [place] [address] Dr. Jeimy Tenorio TROPONIN, HIGH SENSITIVITYon 11-04-2022 HSTROP 5.8 pg/mL Normal 4.0-76.1 [facility] Comment on above: Result Comment: CUT- OFF POINTS HAVE BEEN ESTABLISHED BASED ON THE FOURTH UNIVERSAL DEFINITIONS OF MYOCARDIAL INFARCTION. THE UPPER REFERENCE LIMIT (URL) OF TROPONIN, DEFINED THE 99TH PERCENTILE OF cTnI DISTRIBUTION IN A REFERENCE POPULATION, HAS BEEN CONFIRMED THE DECISION THRESHOLD FOR KS DIAGNOSIS. Performed By: #### C BC #### [facility] [address] [place] [address] Dr. Jeimy Tenorio CBC AUTO DIFFon 09-29-2022 BASO # 0.1 103/ul Normal 0.0-0.1 [facility] Comment on above: Performed By: #### B MP, CMREP, LIPID #### [facility] [address] [place] [address] Dr. Jeimy Tenorio Basophils/100 WBC (Bld) 1.2 % Normal 0.2-2.0 [facility] Comment on above: Performed By: #### B MP, CMREP, LIPID #### [facility] [address] [place] [address] Dr. Jeimy Tenorio EO # 0.3 103/ul Normal 0.0-0.7 [facility] Comment on above: Performed By: #### B MP, CMREP, LIPID #### [facility] [address] [place] [address] Dr. Jeimy Tenorio Eosinophils/100 WBC (Bld) 4.9 % Normal 0.9-7.0 [facility] Comment on above: Performed By: #### B MP, CMREP, LIPID #### [facility] [address] [place] [address] Dr. Jeimy Tenorio Erythrocyte distribution width (RBC) [Ratio] 13.2 % Normal 11.0-15.0 [facility] Comment on above: Performed By: #### B MP, CMREP, LIPID #### [facility] [address] [place] [address] Dr. Jeimy Tenorio Hematocrit (Bld) [Volume fraction] 42.3 % Normal 42.0-54.0 [facility] Comment on above: Performed By: #### B MP, CMREP, LIPID #### [facility] [address] [place] [address] Dr. Jeimy Tenorio Hemoglobin (Bld) [Mass/Vol] 13.8 g/dL Critically low 14.0-18.0 [facility] Comment on above: Performed By: #### B MP, CMREP, LIPID #### [facility] [address] [place] [address] Dr. Jeimy Tenorio IG # 0.02 10e3/ul Normal 0.00-0.03 [facility] Comment on above: Performed By: #### B MP, CMREP, LIPID #### [facility] [address] [address] [address] Jeimy Tenorio IG % 0.3 % Normal 0.0-0.5 [facility] Comment on above: Performed By: #### B MP, CMREP, LIPID #### [facility] [address] [place] [address] Dr. Jeimy Tenorio LYMPH # 1.3 103/ul Normal 1.2-3.8 [facility] Comment on above: Performed By: #### B MP, CMREP, LIPID #### [facility] [address] [place] [address] Dr. Jeimy Tenorio Lymphocytes/100 WBC (Bld) 19.5 % Critically low 20.5-60.0 [facility] Comment on above: Performed By: #### B MP, CMREP, LIPID #### [facility] [address] [place] [address] Dr. Jeimy Tenorio MANUAL DIFF REQ NO Normal [facility] Comment on above: Performed By: #### B MP, CMREP, LIPID #### [facility] [address] [place] [address] Dr. Jeimy Tenorio MCH (RBC) [Entitic mass] 32.9 pg Normal 25.9-34.0 [facility] Comment on above: Performed By: #### B MP, CMREP, LIPID #### [facility] [address] [place] [address] Dr. Jeimy Tenorio MCHC (RBC) [Mass/Vol] 32.6 g/dL Normal 29.9-35.2 [facility] Comment on above: Performed By: #### B MP, CMREP, LIPID #### [facility] [address] [place] [address] Dr. Jeimy Tenorio MCV (RBC) [Entitic vol] 100.7 fL Critically high 80.0-94.0 [facility] Comment on above: Performed By: #### B MP, CMREP, LIPID #### [facility] [address] [place] [address] Dr. Jeimy Tenorio MONO # 0.7 103/ul Normal 0.3-0.8 [facility] Comment on above: Performed By: #### B MP, CMREP, LIPID #### [facility] [address] [place] [address] Dr. Jeimy Tenorio Monocytes/100 WBC (Bld) 9.9 % Normal 1.7-12.0 [facility] Comment on above: Performed By: #### B MP, CMREP, LIPID #### [facility] [address] [place] [address] Dr. Jeimy Tenorio NEUT # 4.3 103/ul Normal 1.4-6.5 [facility] Comment on above: Performed By: #### B MP, CMREP, LIPID #### [facility] [address] [place] [address] Dr. Jeimy Tenorio Neutrophils/100 WBC (Bld) 64.2 % Normal 43.0-75.0 [facility] Comment on above: Performed By: #### B MP, CMREP, LIPID #### [facility] [address] [place] [address] Dr. Jeimy Tenorio Platelet mean volume (Bld) [Entitic vol] 10.4 fL Normal 9.5-13.5 [facility] Comment on above: Performed By: #### B MP, CMREP, LIPID #### [facility] [address] [place] [address] Dr. Jeimy Tenorio PLT 209 103/ul Normal 150-450 [facility] Comment on above: Performed By: #### B MP, CMREP, LIPID #### [facility] [address] [place] [address] Dr. Jeimy Tenorio RBC 4.20 106/ul Critically low 4.70-6.10 [facility] Comment on above: Performed By: #### B MP, CMREP, LIPID #### [facility] [address] [place] [address] Dr. Jeimy Tenorio WBC 6.7 103/ul Normal 4.0-11.0 [facility] Comment on above: Performed By: #### B MP, CMREP, LIPID #### [facility] [address] [address] [address] Jeimy Tenorio DILANTINon 09-29-2022 Phenytoin [Mass/Vol] 23.7 ug/mL Critically high 10.0-20.0 [facility] Comment on above: Performed By: #### C BC #### [facility] [address] [address] [address] Jeimy Tenorio GLYCOHEMOGLOBIN A1Con 2021 ADA RECOMMENDATION SEE BELOW Normal [facility] Comment on above: Result Comment: ADA RECOMMENDED LIMIT 4.0 - 6.0 ADA THERAPEUTIC TARGET < 7.0 ACTION SUGGESTED > 7.0 Performed By: #### A 1C #### [facility] [address] [place] [address] Dr. Jeimy Tenorio Glucose [Mass/Vol] 105 mg/dL Normal [facility] Comment on above: Performed By: #### A 1C #### [facility] [address] [place] [address] Dr. Jeimy Tenorio HbA1c (Bld) [Mass fraction] 5.3 % Normal 4.5-6.2 [facility] Comment on above: Performed By: #### A 1C #### [facility] [address] [place] [address] Dr. Jeimy Tenorio LIPID PROFILEon 09-29-2022 CHOL-HDL RATIO NORM SEE BELOW Normal [facility] Comment on above: Result Comment: 3.3 - 4.4 LOW RISK 4.4 - 7.1 AVERAGE RISK 7.1 - 11.0 MODERATE RISK >11.0 HIGH RISK Performed By: #### B MP, CMREP, LIPID #### [facility] [address] [place] [address] Dr. Jeimy Tenorio Cholesterol [Mass/Vol] 178 mg/dL Normal <=200 [facility] Comment on above: Performed By: #### B MP, CMREP, LIPID #### [facility] [address] [place] [address] Dr. Jeimy Tenorio Cholesterol in HDL [Mass/Vol] 56 mg/dL Normal 40-60 [facility] Comment on above: Performed By: #### B MP, CMREP, LIPID #### [facility] [address] [address] [address] Jeimy Tenorio Cholesterol in LDL [Mass/Vol] 86.8 mg/dL Normal [facility] Comment on above: Performed By: #### B MP, CMREP, LIPID #### [facility] [address] [address] [address] Jeimy Tenorio Cholesterol.total/Ch olesterol in HDL [Mass ratio] 3.2 {ratio} Normal [facility] Comment on above: Performed By: #### B MP, CMREP, LIPID #### [facility] [address] [address] [address] Jeimy Tenorio HDL NORMAL > or = 60 mg/dl - LO W CARDIOVASCULAR RISK <40 mg/dl - HIGH CARDIOVASCULAR RISK Normal [facility] Comment on above: Performed By: #### B MP, CMREP, LIPID #### [place] [facility] [address] [place] [address] Dr. Jeimy Tenorio LDL CALC NORMAL SEE BELOW Normal [facility] Comment on above: Result Comment: <100 mg/dl OPTIMAL 100 - 129 mg/dl NEAR OR ABOVE OPTIMAL 130 - 159 mg/dl BORDERLINE HIGH 160 - 189 mg/dl HIGH >190 mg/dl VERY HIGH Performed By: #### B MP, CMREP, LIPID #### [facility] [address] [place] [address] Dr. Jeimy Tenorio Triglyceride [Mass/Vol] 176 mg/dL Critically high <=150 [facility] Comment on above: Performed By: #### B MP, CMREP, LIPID #### [facility] [address] [place] [address] Dr. Jeimy Tenorio VLDL CALC 35.2 mg/dL Normal [facility] Comment on above: Performed By: #### B MP, CMREP, LIPID #### [facility] [address] [place] [address] Dr. Jeimy Tenorio LIVER PROFILEon 09-29-2022 Albumin [Mass/Vol] 3.5 g/dL Normal 3.4-5.0 [facility] Comment on above: Performed By: #### B MP, CMREP, LIPID #### [facility] [address] [address] [address] Jeimy Tenorio Albumin/Globulin [Mass ratio] 0.8 {ratio} Normal [facility] Comment on above: Performed By: #### B MP, CMREP, LIPID #### [facility] [address] [address] [address] Jeimy Tenorio ALP [Catalytic activity/Vol] 139 U/L Critically high 46-116 [facility] Comment on above: Performed By: #### B MP, CMREP, LIPID #### [facility] [address] [address] [address] Jeimy Tenorio ALT [Catalytic activity/Vol] 25 U/L Normal 16-63 [facility] Comment on above: Performed By: #### B MP, CMREP, LIPID #### [facility] [address] [place] [address] Dr. Jeimy Tenorio AST [Catalytic activity/Vol] 23 U/L Normal 15-37 [facility] Comment on above: Performed By: #### B MP, CMREP, LIPID #### [facility] [address] [address] [address] Jeimy Tenorio BILI, CONJUGATED 0.0 mg/dL Normal 0.0-0.2 [facility] Comment on above: Performed By: #### B MP, CMREP, LIPID #### [facility] [address] [address] [address] Jeimy Tenorio Bilirubin [Mass/Vol] 0.3 mg/dL Normal 0.2-1.0 [facility] Comment on above: Performed By: #### B MP, CMREP, LIPID #### [facility] [address] [address] [address] Jeimy Tenorio Globulin (S) [Mass/Vol] 4.3 g/dL Normal [facility] Comment on above: Performed By: #### B MP, CMREP, LIPID #### [facility] [address] [address] [address] Jeimy Tenorio Protein [Mass/Vol] 7.8 g/dL Normal 6.4-8.2 [facility] Comment on above: Performed By: #### B MP, CMREP, LIPID #### [facility] [address] [place] [address] Dr. Jeimy Tenorio PROF CHEM 8 (BAS METB)on Anion gap [Moles/Vol] 8.7 mmol/L Normal [facility] Comment on above: Performed By: #### B MP, CMREP, LIPID #### [facility] [address] [place] [address] Dr. Jeimy Tenorio Calcium [Mass/Vol] 8.7 mg/dL Normal 8.5-10.1 [facility] Comment on above: Performed By: #### B MP, CMREP, LIPID #### [facility] [address] [place] [address] Dr. Jeimy Tenorio Chloride [Moles/Vol] 104 mmol/L Normal 98-107 [facility] Comment on above: Performed By: #### B MP, CMREP, LIPID #### [facility] [address] [place] [address] Dr. Jeimy Tenorio CO2 [Moles/Vol] 29.8 mmol/L Normal 21.0-32.0 [facility] Comment on above: Performed By: #### B MP, CMREP, LIPID #### [facility] [address] [place] [address] Dr. Jeimy Tenorio Creatinine [Mass/Vol] 0.76 mg/dL Normal 0.70-1.30 [facility] Comment on above: Performed By: #### B MP, CMREP, LIPID #### [facility] [address] [place] [address] Dr. Jeimy Tenorio EGFR-AF SALVADOREAN >60 Normal >=60 [facility] Comment on above: Performed By: #### B MP, CMREP, LIPID #### [facility] [address] [place] [address] Dr. Jeimy Tenorio EGFR-NON AF SALVADOREAN >60 Normal >=60 [facility] Comment on above: Performed By: #### B MP, CMREP, LIPID #### [facility] [address] [address] [address] Jeimy Tenorio Glucose [Mass/Vol] 95 mg/dL Normal 74-106 [facility] Comment on above: Performed By: #### B MP, CMREP, LIPID #### [facility] [address] [address] [address] Jeimy Tenorio Potassium [Moles/Vol] 4.5 mmol/L Normal 3.5-5.1 [facility] Comment on above: Performed By: #### B MP, CMREP, LIPID #### [facility] [address] [address] [address] Jeimy Tenorio Sodium [Moles/Vol] 138 mmol/L Normal 136-145 [facility] Comment on above: Performed By: #### B MP, CMREP, LIPID #### [facility] [address] [place] [address] Dr. Jeimy Tenorio Urea nitrogen [Mass/Vol] 18.0 mg/dL Normal 7.0-18.0 [facility] Comment on above: Performed By: #### B MP, CMREP, LIPID #### [facility] [address] [place] [address] Dr. Jeimy Tenorio Urea nitrogen/Creatinine [Mass ratio] 23.7 mg/mg Normal [facility] Comment on above: Performed By: #### B MP, CMREP, LIPID #### [facility] [address] [place] [address] Dr. Jeimy Tenorio TSHon 09-29-2022 TSH 1.694 uIU/mL Normal 0.358-3.740 [facility] Comment on above: Performed By: #### B MP, CMREP, LIPID #### [facility] [address] [place] [address] Dr. Jeimy Tenorio CARDIAC SAWYER 3-6on 2 CK [Catalytic activity/Vol] 47 U/L Normal 39-308 [facility] Comment on above: Performed By: #### B MP, CMREP, LIPID #### [facility] [address] [place] [address] Dr. Jeimy Tenorio CK.MB [Mass/Vol] 0.77 ng/mL Normal <=3.60 [facility] Comment on above: Performed By: #### B MP, CMREP, LIPID #### [facility] [address] [address] [address] Jeimy Tenorio HSTROP 6.9 pg/mL Normal 4.0-76.1 [facility] Comment on above: Result Comment: CUT- OFF POINTS HAVE BEEN ESTABLISHED BASED ON THE FOURTH UNIVERSAL DEFINITIONS OF MYOCARDIAL INFARCTION. THE UPPER REFERENCE LIMIT (URL) OF TROPONIN, DEFINED THE 99TH PERCENTILE OF cTnI DISTRIBUTION IN A REFERENCE POPULATION, HAS BEEN CONFIRMED THE DECISION THRESHOLD FOR KS DIAGNOSIS. Performed By: #### B MP, CMREP, LIPID #### [facility] [address] [place] [address] Dr. Jeimy Tenorio CK [Catalytic activity/Vol] 53 U/L Normal 39-308 [facility] Comment on above: Performed By: #### C BC #### [facility] [address] [place] [address] Dr. Jeimy Tenorio CK.MB [Mass/Vol] 0.80 ng/mL Normal <=3.60 [facility] Comment on above: Performed By: #### C BC #### [facility] [address] [place] [address] Dr. Jeimy Tenorio HSTROP 6.2 pg/mL Normal 4.0-76.1 [facility] Comment on above: Result Comment: CUT- OFF POINTS HAVE BEEN ESTABLISHED BASED ON THE FOURTH UNIVERSAL DEFINITIONS OF MYOCARDIAL INFARCTION. THE UPPER REFERENCE LIMIT (URL) OF TROPONIN, DEFINED THE 99TH PERCENTILE OF cTnI DISTRIBUTION IN A REFERENCE POPULATION, HAS BEEN CONFIRMED THE DECISION THRESHOLD FOR KS DIAGNOSIS. Performed By: #### C BC #### [facility] [address] [address] [address] Jeimy Tenorio CBC AUTO DIFFon 06-12-2022 BASO # 0.1 103/ul Normal 0.0-0.1 [facility] Comment on above: Performed By: #### C BC #### [facility] [address] [address] [address] Jeimy Tenorio Basophils/100 WBC (Bld) 0.9 % Normal 0.2-2.0 [facility] Comment on above: Performed By: #### C BC #### [facility] [address] [place] [address] Dr. Jeimy Tenorio EO # 0.3 103/ul Normal 0.0-0.7 [facility] Comment on above: Performed By: #### C BC #### [facility] [address] [place] [address] Dr. Jeimy Tenorio Eosinophils/100 WBC (Bld) 5.2 % Normal 0.9-7.0 [facility] Comment on above: Performed By: #### C BC #### [facility] [address] [place] [address] Dr. Jeimy Tenorio Erythrocyte distribution width (RBC) [Ratio] 13.0 % Normal 11.0-15.0 [facility] Comment on above: Performed By: #### C BC #### [facility] [address] [place] [address] Dr. Jeimy Tenorio Hematocrit (Bld) [Volume fraction] 39.1 % Critically low 42.0-54.0 [facility] Comment on above: Performed By: #### C BC #### [facility] [address] [place] [address] Dr. Jeimy Tenorio Hemoglobin (Bld) [Mass/Vol] 13.2 g/dL Critically low 14.0-18.0 [facility] Comment on above: Performed By: #### C BC #### [facility] [address] [place] [address] Dr. Jeimy Tenorio IG # 0.03 10e3/ul Normal 0.00-0.03 [facility] Comment on above: Performed By: #### C BC #### [facility] [address] [place] [address] Dr. Jeimy Tenorio IG % 0.5 % Normal 0.0-0.5 [facility] Comment on above: Performed By: #### C BC #### [facility] [address] [place] [address] Dr. Jeimy Tenorio LYMPH # 1.7 103/ul Normal 1.2-3.8 [facility] Comment on above: Performed By: #### C BC #### [facility] [address] [place] [address] Dr. Jeimy Tenorio Lymphocytes/100 WBC (Bld) 26.0 % Normal 20.5-60.0 [facility] Comment on above: Performed By: #### C BC #### [facility] [address] [place] [address] Dr. Jeimy Tenorio MANUAL DIFF REQ NO Normal [facility] Comment on above: Performed By: #### C BC #### [facility] [address] [place] [address] Dr. Jeimy Tenorio MCH (RBC) [Entitic mass] 33.2 pg Normal 25.9-34.0 [facility] Comment on above: Performed By: #### C BC #### [facility] [address] [place] [address] Dr. Jeimy Tenorio MCHC (RBC) [Mass/Vol] 33.8 g/dL Normal 29.9-35.2 [facility] Comment on above: Performed By: #### C BC #### [facility] [address] [place] [address] Dr. Jeimy Tenorio MCV (RBC) [Entitic vol] 98.5 fL Critically high 80.0-94.0 [facility] Comment on above: Performed By: #### C BC #### [facility] [address] [place] [address] Dr. Jeimy Tenorio MONO # 0.8 103/ul Normal 0.3-0.8 [facility] Comment on above: Performed By: #### C BC #### [facility] [address] [place] [address] Dr. Jeimy Tenorio Monocytes/100 WBC (Bld) 12.2 % Critically high 1.7-12.0 [facility] Comment on above: Performed By: #### C BC #### [facility] [address] [place] [address] Dr. Jeimy Tenorio NEUT # 3.6 103/ul Normal 1.4-6.5 [facility] Comment on above: Performed By: #### C BC #### [facility] [address] [address] [address] Jeimy Tenorio Neutrophils/100 WBC (Bld) 55.2 % Normal 43.0-75.0 [facility] Comment on above: Performed By: #### C BC #### [facility] [id number] Jeimy Tenorio Platelet mean volume (Bld) [Entitic vol] 9.9 fL Normal 9.5-13.5 [facility] Comment on above: Performed By: #### C BC #### [facility] [id number] Jeimy Tenorio PLT 174 103/ul Normal 150-450 [facility] Comment on above: Performed By: #### C BC #### [facility] [address] [address] [address] Jeimy Tenorio RBC 3.97 106/ul Critically low 4.70-6.10 [facility] Comment on above: Performed By: #### C BC #### [facility] [id number] Jeimy Tenorio WBC 6.5 103/ul Normal 4.0-11.0 [facility] Comment on above: Performed By: #### C BC #### [facility] [address] [place] [address] Dr. Jeimy Tenorio CTA CHEST WO W CONon 07-23-2 [...] MAMIE ALFORD Date: 2022-06-12 00:21 Normal [facility] Covid-19 PCR (CVDTBH)on 05-22 SARS-CoV-2 (COVID-19) RNA ALEX+probe Ql (Unsp spec) Not detected Normal NOT DETECTED [facility] Comment on above: Result Comment: When diagnostic [...] for this test is supported by the [employer]'s declaration that [...] By: #### B MP, CMREP, LIPID #### [facility] [address] [address] [address] Jeimy Tenorio ER URINE PROFILEon 2 Bilirubin Ql (U) Negative Normal NEGATIVE [facility] Comment on above: Performed By: #### E RUR #### [facility] [address] [place] [address] Dr. Jeimy Tenorio Clarity (U) CLEAR Normal CLEAR [facility] Comment on above: Performed By: #### E RUR #### [facility] [address] [place] [address] Dr. Jeimy Tenorio Color (U) LT. YELLOW Normal YELLOW [facility] Comment on above: Performed By: #### E RUR #### [facility] [address] [place] [address] Dr. Jeimy BALES A micrscopic examination will be performed if indicated. Normal [facility] Comment on above: Performed By: #### E RUR #### [facility] [address] [place] [address] Dr. Jeiym Tenorio Glucose Ql (U) Negative Normal NEGATIVE [facility] Comment on above: Performed By: #### E RUR #### [facility] [address] [place] [address] Dr. Jeimy Tenorio Hemoglobin Ql (U) Negative Normal NEGATIVE [facility] Comment on above: Performed By: #### E RUR #### [facility] [address] [place] [address] Dr. Jeimy Tenorio Ketones Ql (U) TRACE Abnormal NEGATIVE [facility] Comment on above: Performed By: #### E RUR #### [facility] [address] [place] [address] Dr. Jeimy Tenorio LEUKOCYTES Negative Normal NEGATIVE [facility] Comment on above: Performed By: #### E RUR #### [facility] [address] [place] [address] Dr. Jeimy Tenorio Nitrite Ql (U) Negative Normal NEGATIVE [facility] Comment on above: Performed By: #### E RUR #### [facility] [address] [place] [address] Dr. Jeimy Tenorio pH (U) 5.5 [pH] Normal 5-9 [facility] Comment on above: Performed By: #### E RUR #### [facility] [address] [address] [address] Jeimy Tenorio SPEC GRAVITY 1.010 Normal 1.005-<=1.025 [facility] Comment on above: Performed By: #### E RUR #### [facility] [address] [address] [address] Jeimy Tenorio UA PROTEIN Negative Normal NEGATIVE/ TRACE [facility] Comment on above: Performed By: #### E RUR #### [facility] [address] [place] [address] Dr. Jeimy Tenorio UR MICRO IND NOT INDICATED Normal [facility] Comment on above: Performed By: #### E RUR #### [facility] [address] [place] [address] Dr. Jeimy Tenorio Urobilinogen Qn (U) 0.2 {Raphael'U}/dL Normal 0.2 - 1. 0 [facility] Comment on above: Performed By: #### E RUR #### [facility] [address] [place] [address] Dr. Jeimy Tenorio GLYCOHEMOGLOBIN A1Con 2021 ADA RECOMMENDATION SEE BELOW Normal [facility] Comment on above: Result Comment: ADA RECOMMENDED LIMIT 4.0 - 6.0 ADA THERAPEUTIC TARGET < 7.0 ACTION SUGGESTED > 7.0 Performed By: #### C BC #### [facility] [address] [place] [address] Dr. Jeimy Tenorio Glucose [Mass/Vol] 103 mg/dL Normal [facility] Comment on above: Performed By: #### C BC #### [facility] [address] [place] [address] Dr. Jeimy Tenorio HbA1c (Bld) [Mass fraction] 5.2 % Normal 4.5-6.2 [facility] Comment on above: Performed By: #### C BC #### [facility] [address] [place] [address] Dr. Jeimy Tenorio LIPID PROFILEon 06-12-2022 CHOL-HDL RATIO NORM SEE BELOW Normal [facility] Comment on above: Result Comment: 3.3 - 4.4 LOW RISK 4.4 - 7.1 AVERAGE RISK 7.1 - 11.0 MODERATE RISK >11.0 HIGH RISK Performed By: #### B MP, CMREP, LIPID #### [facility] [address] [address] [address] Jeimy Tenorio Cholesterol [Mass/Vol] 142 mg/dL Normal <=200 [facility] Comment on above: Performed By: #### B MP, CMREP, LIPID #### [facility] [address] [address] [address] Jeimy Tenorio Cholesterol in HDL [Mass/Vol] 49 mg/dL Normal 40-60 [facility] Comment on above: Performed By: #### B MP, CMREP, LIPID #### [facility] [address] [place] [address] Dr. Jeimy Tenorio Cholesterol in LDL [Mass/Vol] 64.6 mg/dL Normal [facility] Comment on above: Performed By: #### B MP, CMREP, LIPID #### [facility] [address] [place] [address] Dr. Jeimy Tenorio Cholesterol.total/Ch olesterol in HDL [Mass ratio] 2.9 {ratio} Normal [facility] Comment on above: Performed By: #### B MP, CMREP, LIPID #### [facility] [address] [place] [address] Dr. Jeimy Tenorio HDL NORMAL > or = 60 mg/dl - LO W CARDIOVASCULAR RISK <40 mg/dl - HIGH CARDIOVASCULAR RISK Normal [facility] Comment on above: Performed By: #### B MP, CMREP, LIPID #### [facility] [address] [place] [address] Dr. Jeimy Tenorio LDL CALC NORMAL SEE BELOW Normal [facility] Comment on above: Result Comment: <100 mg/dl OPTIMAL 100 - 129 mg/dl NEAR OR ABOVE OPTIMAL 130 - 159 mg/dl BORDERLINE HIGH 160 - 189 mg/dl HIGH >190 mg/dl VERY HIGH Performed By: #### B MP, CMREP, LIPID #### [facility] [address] [place] [address] Dr. Jeimy Tenorio Triglyceride [Mass/Vol] 142 mg/dL Normal <=150 [facility] Comment on above: Performed By: #### B MP, CMREP, LIPID #### [facility] [address] [place] [address] Dr. Jeimy Tenorio VLDL CALC 28.4 mg/dL Normal [facility] Comment on above: Performed By: #### B MP, CMREP, LIPID #### [facility] [address] [place] [address] Dr. Jeimy Tenorio PROF CHEM 8 (BAS METB)on Anion gap [Moles/Vol] 10.1 mmol/L Normal [facility] Comment on above: Performed By: #### B MP, CMREP, LIPID #### [facility] [address] [place] [address] Dr. Jeimy Tenorio Calcium [Mass/Vol] 8.0 mg/dL Critically low 8.5-10.1 [facility] Comment on above: Performed By: #### B MP, CMREP, LIPID #### [facility] [address] [place] [address] Dr. Jeimy Tenorio Chloride [Moles/Vol] 104 mmol/L Normal 98-107 [facility] Comment on above: Performed By: #### B MP, CMREP, LIPID #### [facility] [address] [place] [address] Dr. Jeimy Tenorio CO2 [Moles/Vol] 27.0 mmol/L Normal 21.0-32.0 [facility] Comment on above: Performed By: #### B MP, CMREP, LIPID #### [facility] [address] [place] [address] Dr. Jeimy Tenorio Creatinine [Mass/Vol] 0.79 mg/dL Normal 0.70-1.30 [facility] Comment on above: Performed By: #### B MP, CMREP, LIPID #### [facility] [address] [place] [address] Dr. Jeimy Tenorio EGFR-AF SALVADOREAN >60 Normal >=60 [facility] Comment on above: Performed By: #### B MP, CMREP, LIPID #### [facility] [address] [address] [address] Jeimy Tenorio EGFR-NON AF SALVADOREAN >60 Normal >=60 [facility] Comment on above: Performed By: #### B MP, CMREP, LIPID #### [facility] [address] [address] [address] Jeimy Tenorio Glucose [Mass/Vol] 101 mg/dL Normal 74-106 [facility] Comment on above: Performed By: #### B MP, CMREP, LIPID #### [facility] [address] [address] [address] Jeimy Tenorio Potassium [Moles/Vol] 4.1 mmol/L Normal 3.5-5.1 [facility] Comment on above: Performed By: #### B MP, CMREP, LIPID #### [facility] [address] [address] [address] Jeimy Tenorio Sodium [Moles/Vol] 137 mmol/L Normal 136-145 [facility] Comment on above: Performed By: #### B MP, CMREP, LIPID #### [facility] [address] [address] [address] Jeimy Tenorio Urea nitrogen [Mass/Vol] 15.0 mg/dL Normal 7.0-18.0 [facility] Comment on above: Performed By: #### B MP, CMREP, LIPID #### [facility] [address] [address] [address] Jeimy Tenorio Urea nitrogen/Creatinine [Mass ratio] 19.0 mg/mg Normal [facility] Comment on above: Performed By: #### B MP, CMREP, LIPID #### [facility] [address] [address] [address] Jeimy Tenorio CARDIAC SAWYER ADMITon 022 CK [Catalytic activity/Vol] 50 U/L Normal 39-308 [facility] Comment on above: Performed By: #### C BC #### [facility] [address] [address] [address] Jeimy Tenorio CK.MB [Mass/Vol] 0.80 ng/mL Normal <=3.60 [facility] Comment on above: Performed By: #### C BC #### [facility] [address] [place] [address] Dr. Jeimy Tenorio HSTROP 5.2 pg/mL Normal 4.0-76.1 [facility] Comment on above: Result Comment: CUT- OFF POINTS HAVE BEEN ESTABLISHED BASED ON THE FOURTH UNIVERSAL DEFINITIONS OF MYOCARDIAL INFARCTION. THE UPPER REFERENCE LIMIT (URL) OF TROPONIN, DEFINED THE 99TH PERCENTILE OF cTnI DISTRIBUTION IN A REFERENCE POPULATION, HAS BEEN CONFIRMED THE DECISION THRESHOLD FOR [place] DIAGNOSIS. Performed By: #### C BC #### [facility] [address] [place] [address] Dr. Jeimy Tenorio MAGALIE 41 ng/mL Normal 16-96 [facility] Comment on above: Performed By: #### C BC #### [facility] [address] [place] [address] Dr. Jeimy Tenorio CBC AUTO DIFFon 06-11-2022 BASO # 0.0 103/ul Normal 0.0-0.1 [facility] Comment on above: Performed By: #### C BC #### [facility] [address] [place] [address] Dr. Jeimy Tenorio Basophils/100 WBC (Bld) 0.6 % Normal 0.2-2.0 [facility] Comment on above: Performed By: #### C BC #### [facility] [address] [place] [address] Dr. Jeimy Tenorio EO # 0.4 103/ul Normal 0.0-0.7 [facility] Comment on above: Performed By: #### C BC #### [facility] [address] [place] [address] Dr. Jeimy Tenorio Eosinophils/100 WBC (Bld) 4.9 % Normal 0.9-7.0 [facility] Comment on above: Performed By: #### C BC #### [facility] [address] [place] [address] Dr. Jeimy Tenorio Erythrocyte distribution width (RBC) [Ratio] 13.1 % Normal 11.0-15.0 [facility] Comment on above: Performed By: #### C BC #### [facility] [address] [place] [address] Dr. Jeimy Tenorio Hematocrit (Bld) [Volume fraction] 38.1 % Critically low 42.0-54.0 [facility] Comment on above: Performed By: #### C BC #### [facility] [address] [place] [address] Dr. Jeimy Tenorio Hemoglobin (Bld) [Mass/Vol] 13.0 g/dL Critically low 14.0-18.0 [facility] Comment on above: Performed By: #### C BC #### [facility] [address] [place] [address] Dr. Jeimy Tenorio IG # 0.02 10e3/ul Normal 0.00-0.03 [facility] Comment on above: Performed By: #### C BC #### [facility] [address] [place] [address] Dr. Jeimy Tenorio IG % 0.3 % Normal 0.0-0.5 [facility] Comment on above: Performed By: #### C BC #### [facility] [address] [place] [address] Dr. Jeimy Tenorio LYMPH # 1.7 103/ul Normal 1.2-3.8 [facility] Comment on above: Performed By: #### C BC #### [facility] [address] [place] [address] Dr. Jeimy Tenorio Lymphocytes/100 WBC (Bld) 22.9 % Normal 20.5-60.0 [facility] Comment on above: Performed By: #### C BC #### [facility] [address] [place] [address] Dr. Jeimy Tenorio MANUAL DIFF REQ NO Normal [facility] Comment on above: Performed By: #### C BC #### [facility] [address] [place] [address] Dr. Jeimy Tenorio MCH (RBC) [Entitic mass] 33.5 pg Normal 25.9-34.0 [facility] Comment on above: Performed By: #### C BC #### [facility] [address] [address] [address] Jeimy Tenorio MCHC (RBC) [Mass/Vol] 34.1 g/dL Normal 29.9-35.2 [facility] Comment on above: Performed By: #### C BC #### [facility] [address] [place] [address] Dr. Jeimy Tenorio MCV (RBC) [Entitic vol] 98.2 fL Critically high 80.0-94.0 [facility] Comment on above: Performed By: #### C BC #### [facility] [address] [place] [address] Dr. Jeimy Tenorio MONO # 0.8 103/ul Normal 0.3-0.8 [facility] Comment on above: Performed By: #### C BC #### [facility] [address] [place] [address] Dr. Jeimy Tenorio Monocytes/100 WBC (Bld) 11.5 % Normal 1.7-12.0 [facility] Comment on above: Performed By: #### C BC #### [facility] [address] [place] [address] Dr. Jeimy Tenorio NEUT # 4.3 103/ul Normal 1.4-6.5 [facility] Comment on above: Performed By: #### C BC #### [facility] [address] [place] [address] Dr. Jeimy Tenorio Neutrophils/100 WBC (Bld) 59.8 % Normal 43.0-75.0 [facility] Comment on above: Performed By: #### C BC #### [facility] [address] [place] [address] Dr. Jeimy Tenorio Platelet mean volume (Bld) [Entitic vol] 9.8 fL Normal 9.5-13.5 [facility] Comment on above: Performed By: #### C BC #### [facility] [address] [place] [address] Dr. Jeimy Tenorio PLT 181 103/ul Normal 150-450 [facility] Comment on above: Performed By: #### C BC #### [facility] [address] [place] [address] Dr. Jeimy Tenorio RBC 3.88 106/ul Critically low 4.70-6.10 [facility] Comment on above: Performed By: #### C BC #### [facility] [address] [place] [address] Dr. Jeimy Tenorio WBC 7.2 103/ul Normal 4.0-11.0 [facility] Comment on above: Performed By: #### C BC #### [facility] [address] [place] [address] Dr. Jeimy Tenorio D-DIMERon 06-11-2022 D-DIMER 0.63 mg/L FEU Critically high <=0.59 [facility] Comment on above: Performed By: #### D DIM #### [facility] [address] [place] [address] Dr. Jeimy Tenorio D-DIMER COMMENTS SEE BELOW Normal [facility] Comment on above: Result Comment: Incr [...] hospitalization. Performed By: #### D DIM #### [facility] [address] [place] [address] Dr. Jeimy Tenorio PROF 14(COMP METB)on 022 Albumin [Mass/Vol] 3.3 g/dL Critically low 3.4-5.0 [facility] Comment on above: Performed By: #### C BC #### [facility] [address] [place] [address] Dr. Jeimy Tenorio Albumin/Globulin [Mass ratio] 0.8 {ratio} Normal [facility] Comment on above: Performed By: #### C BC #### [facility] [address] [place] [address] Dr. Jeimy Tenorio ALP [Catalytic activity/Vol] 160 U/L Critically high 46-116 [facility] Comment on above: Performed By: #### C BC #### [facility] [address] [address] [address] Jeimy Tenorio ALT [Catalytic activity/Vol] 26 U/L Normal 16-63 [facility] Comment on above: Performed By: #### C BC #### [facility] [address] [address] [address] Jeimy Tenorio Anion gap [Moles/Vol] 10.4 mmol/L Normal [facility] Comment on above: Performed By: #### C BC #### [facility] [address] [address] [address] Jeimy Tenorio AST [Catalytic activity/Vol] 16 U/L Normal 15-37 [facility] Comment on above: Performed By: #### C BC #### [facility] [address] [place] [address] Dr. Jeimy Tenorio Bilirubin [Mass/Vol] 0.2 mg/dL Normal 0.2-1.0 [facility] Comment on above: Performed By: #### C BC #### [facility] [address] [address] [address] Jeimy Tenorio Calcium [Mass/Vol] 8.2 mg/dL Critically low 8.5-10.1 [facility] Comment on above: Performed By: #### C BC #### [facility] [address] [address] [address] Jeimy Tenorio Chloride [Moles/Vol] 105 mmol/L Normal 98-107 [facility] Comment on above: Performed By: #### C BC #### [facility] [address] [address] [address] Jeimy Tenorio CO2 [Moles/Vol] 26.5 mmol/L Normal 21.0-32.0 [facility] Comment on above: Performed By: #### C BC #### [facility] [address] [address] [address] Jeimy Tenorio Creatinine [Mass/Vol] 0.96 mg/dL Normal 0.70-1.30 [facility] Comment on above: Performed By: #### C BC #### [facility] [address] [address] [address] Jeimy Tenorio EGFR-AF SALVADOREAN >60 Normal >=60 [facility] Comment on above: Performed By: #### C BC #### [facility] [address] [address] [address] Jeimy Tenorio EGFR-NON AF SALVADOREAN >60 Normal >=60 [facility] Comment on above: Performed By: #### C BC #### [facility] [address] [address] [address] Jeimy Tenorio Globulin (S) [Mass/Vol] 4.0 g/dL Normal [facility] Comment on above: Performed By: #### C BC #### [facility] [address] [address] [address] Jeimy Tenorio Glucose [Mass/Vol] 140 mg/dL Critically high 74-106 [facility] Comment on above: Performed By: #### C BC #### [facility] [address] [address] [address] Jeimy Tenorio Potassium [Moles/Vol] 3.9 mmol/L Normal 3.5-5.1 [facility] Comment on above: Performed By: #### C BC #### [facility] [address] [address] [address] Jeimy Tenorio Protein [Mass/Vol] 7.3 g/dL Normal 6.4-8.2 [facility] Comment on above: Performed By: #### C BC #### [facility] [address] [address] [address] Jeimy Tenorio Sodium [Moles/Vol] 138 mmol/L Normal 136-145 [facility] Comment on above: Performed By: #### C BC #### [facility] [address] [address] [address] Jeimy Tenorio Urea nitrogen [Mass/Vol] 15.0 mg/dL Normal 7.0-18.0 [facility] Comment on above: Performed By: #### C BC #### [facility] [address] [address] [address] Jeimy Tenorio Urea nitrogen/Creatinine [Mass ratio] 15.6 mg/mg Normal [facility] Comment on above: Performed By: #### C BC #### [facility] [address] [address] [address] Jeimy Tenorio [email or web address] METABOLIC PANE [facility] 10-30-2021 Albumin [Mass/Vol] 4.3 g/dL Normal 3.6-5.1 [facility] Comment on above: Performed By: #### 7 13, 0, 20801 #### [facility] [address] [place] [address] Poultryman: Yash Campuzano MD Albumin/Globulin [Mass ratio] 1.3 {ratio} Normal 1.0-2.5 [facility] Comment on above: Performed By: #### 7 13, 7599, 26847 #### [facility] [address] [place] [address] Poultryman: Yash Campuzano MD ALP [Catalytic activity/Vol] 152 U/L High 35-144 [facility] Comment on above: Performed By: #### 7 13, 0, 75985 #### [facility] [place] [address] Poultryman: Yash Campuzano MD ALT [Catalytic activity/Vol] 30 U/L Normal 9-46 [facility] Comment on above: Performed By: #### 7 13, 0, 43324 #### [facility] [place] [address] Poultryman: Yash Campuzano MD AST [Catalytic activity/Vol] 26 U/L Normal 10-35 [facility] Comment on above: Performed By: #### 7 13, 0, 13657 #### [facility] [place] [address] Poultryman: Yash Campuzano MD Bilirubin [Mass/Vol] 0.4 mg/dL Normal 0.2-1.2 [facility] Comment on above: Performed By: #### 7 13, 7599, 10801 #### [facility] of [address], [address] [place] [address] Poultryman: Yash Campuzano MD BUN/CREATININE RATIO NOT APPLICABLE Normal 6-22 [facility] Comment on above: Performed By: #### 7 13, 7599, 12352 #### [facility] [address], [address] [place] [address] Poultryman: Yash Campuzano MD Calcium [Mass/Vol] 8.8 mg/dL Normal 8.6-10.3 [facility] Comment on above: Performed By: #### 7 , 7599, 71364 #### [facility] [place] [address] Poultryman: aYsh Campuzano MD Chloride [Moles/Vol] 104 mmol/L Normal 98-110 [facility] Comment on above: Performed By: #### 7 , 7599, 80641 #### [facility] [address], [address] [place] [address] Poultryman: Yash Campuzano MD CO2 [Moles/Vol] 25 mmol/L Normal 20-32 [facility] Comment on above: Performed By: #### 7 , 7599, 35097 #### [facility] [place] [address] Poultryman: Yash Campuzano MD Creatinine [Mass/Vol] 0.76 mg/dL Normal 0.70-1.25 [facility] Comment on above: Result Comment: For patients >49 years of age, the reference limit for Creatinine is approximately 13% higher for people identified as -Burmese. Performed By: #### 7 , 7599, 02478 #### [facility] [address] [place] [address] Poultryman: Yash Campuzano MD eGFR NON-AFR. SALVADOREAN 95 mL/min/1.73m2 Normal > OR = 60 [facility] Comment on above: Performed By: #### 7 , 7599, 20725 #### [facility] [address] [place] [address] Poultryman: Yash Campuzano MD GFR/1.73 sq M.predicted among blacks MDRD (S/P/Bld) [Vol rate/Area] 110 mL/min/{1.73_m2} Normal > OR = 60 [facility] Comment on above: Performed By: #### 7 , 7599, 74580 #### [facility] [place] [address] Poultryman: Yash Campuzano MD Globulin (S) [Mass/Vol] 3.2 g/dL Normal 1.9-3.7 [facility] Comment on above: Performed By: #### 7 , 7599, 41567 #### [facility] [place] [address] Poultryman: Yash Campuzano MD Glucose [Mass/Vol] 103 mg/dL High 65-99 [facility] Comment on above: Result Comment: Fasting reference interval For someone without known diabetes, a glucose value between 100 and 125 mg/dL is consistent with prediabetes and should be confirmed with a follow-up test. Performed By: #### 7 , 7599, 30017 #### [facility] [place] [address] Poultryman: Yash Campuzano MD Potassium [Moles/Vol] 4.7 mmol/L Normal 3.5-5.3 [facility] Comment on above: Performed By: #### 7 , 7599, 73181 #### [facility] [place] [address] Poultryman: Yash Campuzano MD Protein [Mass/Vol] 7.5 g/dL Normal 6.1-8.1 [facility] Comment on above: Performed By: #### 7 , 7599, 92720 #### [facility] [address] [place] [address] Poultryman: Yash Campuzano MD Sodium [Moles/Vol] 137 mmol/L Normal 135-146 [facility] Comment on above: Performed By: #### 7 13, 7600, 65704 #### [facility] [address], [address] [place] [address] Poultryman: Yash Campuzano MD Urea nitrogen [Mass/Vol] 15 mg/dL Normal 7-25 [facility] Comment on above: Performed By: #### 7 13, 7600, 21537 #### [facility] [address], [address] [place] [address] Poultryman: Yash Campuzano MD LIPID PANEL, [facility] 12-1 Cholesterol [Mass/Vol] 180 mg/dL Normal <200 [facility] Comment on above: Order Comment: FASTI NG:YES FASTING: YES Performed By: #### 7 13, 7600, 11306 #### [facility] [address], [address] [place] [address] Poultryman: Yash Campuzaon MD Cholesterol in HDL [Mass/Vol] 50 mg/dL Normal > OR = 40 [facility] Comment on above: Order Comment: FASTI NG:YES FASTING: YES Performed By: #### 7 13, 7600, 54620 #### [facility] [address] [place] [address] Poultryman: Yash Campuzano MD Cholesterol in LDL [Mass/Vol] [...] LDL-C. Gennaro ALMANZAR et al. KO. 2013;310(19): 3680-4288 (http://education.Kismet.Aipai/faq/AAZ660) Performed By: #### 7 13, 7600, 24315 #### [facility] [address], [address] [place], [place] [address] Poultryman: Yash Campuzano MD Cholesterol.total/Ch olesterol in HDL [Mass ratio] 3.6 {ratio} Normal <5.0 [facility] Comment on above: Order Comment: FASTI NG:YES FASTING: YES Performed By: #### 7 , 7600, 25103 #### [facility] [address], [address] [place] [address] Poultryman: Yash Campuzano MD NON HDL CHOLESTEROL 130 mg/dL (calc) High <130 [facility] Comment on above: Order Comment: FASTI NG:YES FASTING: YES Result Comment: For patients with diabetes plus 1 major ASCVD risk factor, treating to a non-HDL-C goal of <100 mg/dL (LDL-C of <70 mg/dL) is considered a therapeutic option. Performed By: #### 7 , 7599, 59536 #### [facility] [place] [address] Poultryman: Yash Campuzano MD Triglyceride [Mass/Vol] 280 mg/dL High <150 [facility] Comment on above: Order Comment: FASTI NG:YES FASTING: YES Result Comment: If a non-fasting specimen was collected, consider repeat triglyceride testing on a fasting specimen if clinically indicated. Marquise et al. J. of Clin. Lipidol. 2015;9:129-169. Performed By: #### 7 , 7599, 52007 #### [facility] [address], [address] [place] [address] Poultryman: Yash Campuzano MD PHENYTOINon 10-30-2021 Phenytoin [Mass/Vol] 18.9 ug/mL Normal 10.0-20.0 [facility] Comment on above: Performed By: #### 7 , 208, 46002 #### [facility] [place] [address] Poultryman: Yash Campuzano MD CBC (INCLUDES DIFF/PLT)on Basophils (Bld) [#/Vol] 0.071 10*3/uL Normal 0-200 [facility] Comment on above: Performed By: #### 7 13, 7599, 6399 #### [facility] of [address], [address] [place] [address] Poultryman: Yash Campuzano MD Basophils/100 WBC (Bld) 1.2 % Normal [facility] Comment on above: Performed By: #### 7 13, 7599, 6399 #### [facility] [address], [address] [place] [address] Poultryman: Yash Campuzano MD Eosinophils (Bld) [#/Vol] 0.277 10*3/uL Normal 15-500 [facility] Comment on above: Performed By: #### 7 13, 7599, 6399 #### [facility] [address], [address] [place] [address] Poultryman: Yash Campuzano MD Eosinophils/100 WBC (Bld) 4.7 % Normal [facility] Comment on above: Performed By: #### 7 , 7599, 6399 #### [facility] [address] [place] [address] Poultryman: Yash Campuzano MD Erythrocyte distribution width (RBC) [Ratio] 12.8 % Normal 11.0-15.0 [facility] Comment on above: Performed By: #### 7 , 7599, 6399 #### [facility] [address] [place] [address] Poultryman: Yash Campuzano MD Hematocrit (Bld) [Volume fraction] 42.1 % Normal 38.5-50.0 [facility] Comment on above: Performed By: #### 7 , 7599, 6399 #### [facility] [address] [place] [address] Poultryman: Yash Campuzano MD Hemoglobin (Bld) [Mass/Vol] 14.9 g/dL Normal 13.2-17.1 [facility] Comment on above: Performed By: #### 7 , 7599, 6399 #### [facility] [address], [address] [place] [address] Poultryman: Yash Campuzano MD Lymphocytes (Bld) [#/Vol] 1.068 10*3/uL Normal 850-3900 [facility] Comment on above: Performed By: #### 7 13, 760, 6399 #### [facility] [address], [address] [place] [address] Poultryman: Yash Campuzano MD Lymphocytes/100 WBC (Bld) 18.1 % Normal [facility] Comment on above: Performed By: #### 7 , 7599, 6399 #### [facility] [place] [address] Poultryman: Yash Campuzano MD MCH (RBC) [Entitic mass] 32.9 pg Normal 27.0-33.0 [facility] Comment on above: Performed By: #### 7 , 7599, 6399 #### [facility] [place] [address] Poultryman: Yash Campuzano MD MCHC (RBC) [Mass/Vol] 35.4 g/dL Normal 32.0-36.0 [facility] Comment on above: Performed By: #### 7 13, 7599, 6399 #### [facility] [place] [address] Poultryman: Yash Campuzano MD MCV (RBC) [Entitic vol] 92.9 fL Normal 80.0-100.0 [facility] Comment on above: Performed By: #### 7 , 7599, 6399 #### [facility] [place] [address] Poultryman: Yash Campuzano MD Monocytes (Bld) [#/Vol] 0.531 10*3/uL Normal 200-950 [facility] Comment on above: Performed By: #### 7 , 7599, 6399 #### [facility] [place] [address] Poultryman: Yash Campuzano MD Monocytes/100 WBC (Bld) 9.0 % Normal [facility] Comment on above: Performed By: #### 7 13, 7599, 6399 #### [facility] [place] [address] Poultryman: Yash Campuzano MD Neutrophils (Bld) [#/Vol] 3.953 10*3/uL Normal 9802-8125 [facility] Comment on above: Performed By: #### 7 13, 7599, 6399 #### [facility] [place] [address] Poultryman: Yash Campuzano MD Neutrophils/100 WBC (Bld) 67 % Normal [facility] Comment on above: Performed By: #### 7 13, 7599, 6399 #### [facility] [place] [address] Poultryman: Yash Campuzano MD Platelet mean volume (Bld) [Entitic vol] 11.0 fL Normal 7.5-12.5 [facility] Comment on above: Performed By: #### 7 13, 7599, 6399 #### [facility] [place] [address] Poultryman: Yash Campuzano MD Platelets (Bld) [#/Vol] 200 10*3/uL Normal 140-400 [facility] Comment on above: Performed By: #### 7 13, 7599, 6399 #### [facility] [place] [address] Poultryman: Yash Campuzano MD RBC (Bld) [#/Vol] 4.53 10*6/uL Normal 4.20-5.80 [facility] Comment on above: Performed By: #### 7 13, 760, 6399 #### [facility] [place] [address] Poultryman: Yash Campuzano MD WBC (Bld) [#/Vol] 5.9 10*3/uL Normal 3.8-10.8 [facility] Comment on above: Performed By: #### 7 13, 7600, 6399 #### [facility] [address], [address] [place] [address] Poultryman: Yash Campuzano MD LIPID PANEL, [address] Cholesterol [Mass/Vol] 218 mg/dL High <200 [facility] Comment on above: Order Comment: FASTI NG:YES FASTING: YES Performed By: #### 7 13, 7600, 6399 #### [facility] [address], [address] [place] [address] Poultryman: Yash Campuzano MD Cholesterol in HDL [Mass/Vol] 55 mg/dL Normal > OR = 40 [facility] Comment on above: Order Comment: FASTI NG:YES FASTING: YES Performed By: #### 7 13, 7600, 6399 #### [facility] [address], [address] [place] [address] Poultryman: Yash Campuzano MD Cholesterol in LDL [Mass/Vol] [...] LDL-C. Gennaro ALMANZAR et al. KO. 2013;310(19): 8875-0277 (http://education.Kismet.Aipai/faq/UYE583) Performed By: #### 7 13, 7600, 6399 #### [facility] [address], [address] [place] [address] Poultryman: Yash Campuzano MD Cholesterol.total/Ch olesterol in HDL [Mass ratio] 4.0 {ratio} Normal <5.0 [facility] Comment on above: Order Comment: FASTI NG:YES FASTING: YES Performed By: #### 7 13, 7600, 6399 #### [facility] [address], [address] [place] [address] Poultryman: Yash Campuzano MD NON HDL CHOLESTEROL 163 mg/dL (calc) High <130 [facility] Comment on above: Order Comment: FASTI NG:YES FASTING: YES Result Comment: For patients with diabetes plus 1 major ASCVD risk factor, treating to a non-HDL-C goal of <100 mg/dL (LDL-C of <70 mg/dL) is considered a therapeutic option. Performed By: #### 7 , 925, 6813 #### [facility] [address], [address] [place] [address] Poultryman: Yash Campuzano MD Triglyceride [Mass/Vol] 200 mg/dL High <150 [facility] Comment on above: Order Comment: FASTI NG:YES FASTING: YES Result Comment: If a non-fasting specimen was collected, consider repeat triglyceride testing on a fasting specimen if clinically indicated. Marquise et al. J. of Clin. Lipidol. 2015;9:129-169. Performed By: #### 7 389, 5225 #### [facility] [place] [address] Poultryman: Yash Campuzano MD PHENYTOINon 04-18-2021 Phenytoin [Mass/Vol] 25.0 ug/mL High 10.0-20.0 [facility] Comment on above: Performed By: #### 7 , 977, 3813 #### [facility] [place] [address] Poultryman: Yash Camupzano MD APTTon 11-20-2020 aPTT Coag (Bld) [Time] 33.4 s Normal 25.0-35.0 [facility] Comment on above: Result Comment: ALL RESULTS [...] THIS PURPOSE. Performed By: #### 5 6101, 94810 ####[facility] BNP EDon 11-20-2020 Natriuretic peptide B (Bld) [Mass/Vol] 111 pg/mL High 0-100 [facility] Comment on above: Result Comment: Give n the appropriate clinical setting a BNP result of >100 pg/mL indicates congestive heart failure. Performed By: #### 3 0935 #### [facility] [address] CBC W/DIFFon 11-20-2020 ABS IMM GRANS 0.0 10*3/uL Normal 0.0-0.2 [facility] Comment on above: Performed By: #### 5 0103 ####[facility] ABS NEUTROPHILS 3.9 10*3/uL Normal 1.6-7.6 [facility] Comment on above: Performed By: #### 5 0103 ####[facility] Basophils (Bld) [#/Vol] 0.1 10*3/uL Normal 0.0-0.2 [facility] Comment on above: Performed By: #### 5 0103 ####[facility] Basophils/100 WBC (Bld) 1.0 % Normal 0.0-1.0 [facility] Comment on above: Performed By: #### 5 0103 ####[facility] Eosinophils (Bld) [#/Vol] 0.3 10*3/uL Normal 0.0-0.5 [facility] Comment on above: Performed By: #### 5 0103 ####[facility] [place] [address], [facility] [[email or web address]] Eosinophils/100 WBC (Bld) 5.1 % Normal 0.0-6.0 [facility] Comment on above: Performed By: #### 102 ####[facility] Erythrocyte distribution width (RBC) [Ratio] 13.1 % Normal 11.5-15.0 [facility] Comment on above: Performed By: #### 102 ####[facility] Hematocrit (Bld) [Volume fraction] 45.4 % Normal 39.0-50.0 [facility] Comment on above: Performed By: #### 102 ####[facility] Hemoglobin (Bld) [Mass/Vol] 14.8 g/dL Normal 13.0-17.0 [facility] Comment on above: Performed By: #### 102 ####[facility] IMMATURE GRANS 0.3 % Normal 0.0-1.0 [facility] Comment on above: Performed By: #### 3 ####[facility].[address] Lymphocytes (Bld) [#/Vol] 1.0 10*3/uL Low 1.2-4.0 [facility] Comment on above: Performed By: #### 102 ####[facility] [place] [address], [facility] [[email or web address]] Lymphocytes/100 WBC (Bld) 17.5 % Low 20.0-45.0 [facility] Comment on above: Performed By: #### 5 0103 ####[facility] MCH (RBC) [Entitic mass] 32.5 pg Normal 27.0-33.0 [facility] Comment on above: Performed By: #### 5 3 ####[facility] MCHC (RBC) [Mass/Vol] 32.6 g/dL Normal 32.0-35.0 [facility] Comment on above: Performed By: #### 102 ####[facility] MCV (RBC) [Entitic vol] 99.6 fL High 82.0-98.0 [facility] Comment on above: Performed By: #### 102 ####[facility] Monocytes (Bld) [#/Vol] 0.6 10*3/uL Normal 0.1-1.0 [facility] Comment on above: Performed By: #### 102 ####[facility] MONOS 9.4 % Normal 5.0-12.0 [facility] Comment on above: Performed By: #### 5 3 ####[facility] Neutrophils/100 WBC (Bld) 66.7 % Normal 40.0-72.0 [facility] Comment on above: Performed By: #### 102 ####[facility] Nucleated RBC/100 WBC (Bld) [Ratio] 0 % Normal 0-0 [facility] Comment on above: Performed By: #### 102 ####[facility] [address], [facility] [[email or web address]] PLAT CNT 175 10*3/uL Normal 150-400 The [facility] Comment on above: Performed By: #### 5 0103 ####[facility]3000 [facility] [address], [facility] [[email or web address]] RBC (Bld) [#/Vol] 4.56 10*6/uL Normal 4.20-5.70 The [facility] Comment on above: Performed By: #### 5 0103 ####[facility] [address], [facility] [[email or web address]] WBC (Bld) [#/Vol] 5.88 10*3/uL Normal 4.00-10.60 [facility] Comment on above: Performed By: #### 5 0103 ####[facility] [address], [facility] [[email or web address]] COMP METABOLIC PANELon 11-20 Albumin [Mass/Vol] 4.0 g/dL Normal 3.5-5.7 [facility] Comment on above: Performed By: #### 0 0121, 38768, 72266, 77570 #### [facility] [address] [facility] [place] [address], [facility] [[email or web address]] ALKALINE PHOSPH 130 IU/L High 34-104 The [facility] Comment on above: Performed By: #### 0 0121, 92886, 19353, 71364 #### [facility] [address] [facility] [place] [address], [facility] [[email or web address]] ALT [Catalytic activity/Vol] 18 U/L Normal 7-52 [facility] Comment on above: Performed By: #### 0 0121, 10787, 65502, 84199 #### [facility] [address] [place] [address], [facility] [[email or web address]] AST [Catalytic activity/Vol] 19 U/L Normal 13-39 [facility] Comment on above: Performed By: #### 0 0121, 87883, 10229, 41666 #### [facility] [address] [place] [address], [place] Bilirubin [Mass/Vol] 0.4 mg/dL Normal 0.3-1.0 [facility] Comment on above: Performed By: #### 0 0121, 60813, 93754, 21156 #### [facility] [address] [place] [address], [place] Calcium [Mass/Vol] 9.0 mg/dL Normal 8.6-10.3 [facility] Comment on above: Performed By: #### 0 0121, 15148, 50094, 05748 #### [facility] [address] [place] [address], [place] Chloride [Moles/Vol] 103 mmol/L Normal 98-107 [facility] Comment on above: Performed By: #### 0 0121, 89210, 61003, 53185 #### [facility] [address] [place] [address], [place] CO2 [Moles/Vol] 28 mmol/L Normal 21-31 [facility] Comment on above: Performed By: #### 0 0121, 26931, 43526, 77413 #### [facility] [address] [place] [address], [place] Creatinine [Mass/Vol] 0.77 mg/dL Normal 0.70-1.30 [facility] Comment on above: Performed By: #### 0 0121, 81551, 92284, 62705 #### [facility] [address] [place] [address], [place] GFR/1.73 sq M.predicted among blacks MDRD (S/P/Bld) [Vol rate/Area] mL/min/{1.73_m2} Normal >60 [facility] Comment on above: Performed By: #### 0 0121, 23031, 34101, 75110 #### [facility] [address] [place] [address], [place] GFR/1.73 sq M.predicted among non-blacks MDRD (S/P/Bld) [Vol rate/Area] mL/min/{1.73_m2} Normal >60 [facility] Comment on above: Performed By: #### 0 0121, 02503, 82456, 69937 #### [facility] [address] [place] [address], [place] Glucose [Mass/Vol] 88 mg/dL Normal 70-100 The [facility] Comment on above: Performed By: #### 0 0121, 75496, 17995, 05580 #### [facility] [address] [place] [address], [place] Potassium [Moles/Vol] 4.9 mmol/L Normal 3.5-5.1 [facility] Comment on above: Performed By: #### 0 0121, 96683, 30106, 50285 #### [facility] [address] [place] [address], [place] Protein [Mass/Vol] 7.3 g/dL Normal 6.0-8.3 The [facility] Comment on above: Performed By: #### 0 0121, 46585, 13547, 47975 #### [facility] [address] [place] [address], [place] Sodium [Moles/Vol] 138 mmol/L Normal 136-145 The [facility] Comment on above: Performed By: #### 0 0121, 57509, 19964, 49278 #### [facility] [address] [place] [address], [place] Urea nitrogen [Mass/Vol] 15 mg/dL Normal 7-25 [facility] Comment on above: Performed By: #### 0 0121, 58939, 89979, 46160 #### [address] [place], [place] [address] [place] [address] CTA HEADon 11-20-2020 CTA HEAD [facility] of Rad[facility] [address] [place] [phone] Patient Name: NAZARIO CORTES : 1955 Sex: M Age: Race: White Pt. Location: [facility] Patient Status: E Ordered Date: 11/20/2020 11:20:00 [...] stenosis of the major vessels of the [place]. origin of bilateral posterior cerebral arteries. IMPRESSION: Normal CTA of the brain. All CT scans at this facility use dose modulation, iterative reconstruction, and/or weight based dosing when appropriate to reduce radiation dose to as low as reasonably achievable. Electronically signed: Dhaval Bain. Transcribed by: [email or web address], User Resident: Electronically Signed by: DHAVAL PARADISE @ 11/20/2020 12:58 PM Normal [facility] Comment on above: Order Comment: Bleed CTA NECKon 11-20-2020 CTA NECK [facility] [address] [place] [id number] Patient Name: NAZARIO CORTES : 1955 Sex: M Age: Race: White Pt. Location: [facility] Patient Status: E Ordered Date: 11/20/2020 11:20:00 [...] viewed on a separate workstation. The [place] Symptomatic Carotid Endarterectomy Trial (NASCET) method for [...] achievable Electronically signed: Dhaval Bain. Transcribed by: [email or web address], User Resident: Electronically Signed by: DHAVAL BAIN @ 11/20/2020 12:57 PM Normal [facility] DIRECT BILIon 11-20-2020 Bilirubin.direct [Mass/Vol] 0.1 mg/dL Normal 0.0-0.2 [facility] Comment on above: Order Comment: Liver Battery conflicts with Comprehensive Metabolic Panel. Liver Battery canceled and Direct Bilirubin added. Performed By: #### 0 0121, 59111, 86063, 15182 #### [facility] [address] LIPASE BLOODon 11-20-2020 LIPASE 27 Units/L Normal 11-82 [facility] Comment on above: Performed By: #### 0 0121, 12750, 15181, 34501 #### [facility] [address] POC SARS COV2 ANTIGEN NEGATI VEon 11-20-2020 POC SARS COV2 ANTIGEN N Negative Normal NEGATIVE [facility] Comment on above: Result Comment: Test performed on Sensorly Veritor System for rapid detection of SARS-CoV-2. [...] management. Performed By: #### 3 1919 #### [address] [place], [place] [id number] [place] [address] PORTABLE CHEST 1 VIEWon 10-23 PORTABLE CHEST 1 VIEW [facility] [address] [place] [id number] Patient Name: NAZARIO CORTES : 1955 Sex: M Age: Race: White Pt. Location: [facility] Patient Status: E Ordered Date: 11/20/2020 11:20:00 [...] reports Electronically signed: Dhaval Bain. Transcribed by: [email or web address], User Resident: JESSENIA ALFORD Electronically Signed by: DHAVAL BAIN @ 11/20/2020 12:32 PM I personally read this/these film(s) with this resident Normal [facility] Comment on above: Order Comment: evalu ate for Pneumonia PROTHROMBIN TIMEon 0 INR Coag (PPP) [Relative time] 0.95 {INR} Normal 0.91-1.16 [facility] Comment on above: Result Comment: ACCC P [...] RANGE. CHEST 1995;108:231S-246S. Performed By: #### 5 8031, 39318 ####[facility] PT Coag (PPP) [Time] 12.7 s Normal 12.3-14.8 [facility] Comment on above: Result Comment: ALL RESULTS MUST BE INTERPRETED WITH RESPECT TO BLOOD DRAWING ARTIFACT OR DILUTION ERROR OF ANTICOAGULANT AT THE TIME OF SAMPLING. Performed By: #### 5 6101, 54089 ####[facility] [place] [address], [facility] [[email or web address]] TROPONIN-Ion 11-20-2020 Troponin I.cardiac [Mass/Vol] 0.00 ng/mL Normal 0.00-0.04 [facility] Comment on above: Order Comment: No: D o not add to previous draw Result Comment: REFE RENCE RANGES: 0.00 - 0.14 ng/ml NEGATIVE 0.15 - 0.25 ng/ml INDETERMINATE > 0.25 ng/ml INDICATIVE OF AN M.I. Performed By: #### 3 5200 #### [facility] [address] Troponin I.cardiac [Mass/Vol] 0.00 ng/mL Normal 0.00-0.04 [facility] Comment on above: Result Comment: REFE RENCE RANGES: 0.00 - 0.14 ng/ml NEGATIVE 0.15 - 0.25 ng/ml INDETERMINATE > 0.25 ng/ml INDICATIVE OF AN M.I. Performed By: #### 0 0121, 63843, 92287, 20187 #### [facility] [address] Vital Signs Date Time Vital Sign Value Performing Clinician Facility 07-05-2023 10:00-0400 Body height 185.42 cm Luiz Riggs Other [facility] Other 07-05-2023 10:00-0400 Body mass index (BMI) [Ratio] 37.86 kg/m2 Luiz Riggs Other [facility] Other 07-05-2023 10:00-0400 Body weight 130.18 kg Luiz Riggs Other [facility] Other 07-05-2023 10:00-0400 Diastolic blood pressure 76 mm[Hg] Luiz Riggs Other [facility] Other 07-05-2023 10:00-0400 Systolic blood pressure 126 mm[Hg] Luiz Riggs Other [facility] Other 04-06-2022 17:40-0400 Body height 185.42 cm Neelam Morris Other [facility] Other 04-06-2022 17:40-0400 Body mass index (BMI) [Ratio] 36.15 kg/m2 Neelam Morris Other [facility] Other 04-06-2022 17:40-0400 Body temperature 98 [degF] Neelam Morris Other [facility] Other 04-06-2022 17:40-0400 Body weight 124.29 kg Neelam Blackburnmond Other [facility] Other 04-06-2022 17:40-0400 Diastolic blood pressure 69 mm[Hg] Neelam Morris Other [facility] Other 04-06-2022 17:40-0400 Respiratory rate 18 /min Neelam Morris Other [facility] Other 04-06-2022 17:40-0400 SaO2% (BldA) [Mass fraction] 95 % Neelam Blackburnmond Other [facility] Other 04-06-2022 17:40-0400 Systolic blood pressure 123 mm[Hg] Neelam Alexandra Other [facility] Other 12-28-2021 17:00-0500 Body height 185.42 cm Alex Bonilla Other [facility] Other 12-28-2021 17:00-0500 Body mass index (BMI) [Ratio] 37.47 kg/m2 Alex Bonilla Other [facility] [employer] Other 12-28-2021 17:00-0500 Body weight 128.82 kg Alex Bonilla Other [facility] [employer] Other Encounters Encounter Date Encounter Type Care Provider Facility Start: 12-30-2023 ambulatory Chris CAMARILLO Facili ty:[facility] Start: 12-21-2023 Telephone encounter Epifanio dennison MD [facility] Start: 12-20-2023 ambulatory [facility] Start: 12-19-2023 End: 12-20-2023 ambulatory [facility] Start: 12-15-2023 End: 12-15-2023 ambulatory JIGNESH NADERER Not Available Start: 12-07-2023 End: 12-07-2023 ambulatory JIGNESH NADERER Not Available Start: 11-29-2023 End: 11-29-2023 ambulatory JIGNESH NADERER Not Available Start: 10-06-2023 End: 10-06-2023 ambulatory JIGNESH NADERER Not Available Start: 07-18-2023 End: 07-19-2023 ambulatory JIGNESH NADERER Facility: [facility] Start: 07-18-2023 End: 07-18-2023 Patient encounter procedure Chris CAMARILLO [facility] Start: 07-05-2023 Office outpatient ne w 30 minutes Luiz Riggs [facility] Start: 07-05-2023 End: 07-05-2023 ambulatory MD Jignesh Gonsalez Work Phone: [facility] Work Phone: Start: 07-05-2023 End: 07-05-2023 Patient encounter procedure MD Jignesh Gonsalez Work Phone: [facility] Work Phone: Start: 01-07-2023 End: 01-08-2023 [...] 04-06-2022 End: 04-06-2022 ambulatory Neelam Morris Other [facility] Other Start: 04-06-2022 Office outpatient visit 15 minutes Neelam Morris [facility] [place] Start: 12-28-2021 End: 12-28-2021 ambulatory Alex Bonilla Other [facility] Other Start: 12-28-2021 Office outpatient ne w 30 minutes Alex Bonilla [facility] Start: 11-20-2020 End: 11-20-2020 Emergency department patient visit KARINA JAY Facility:[facility] Procedures Date Procedure Procedure Detail Performing Clinician Start: 07-05-2023 X-ray of lumbar spin e, six views including bending views MD Jignesh Gonsalez Work Phone: Start: 09-29-[address] JOSE MARIE Comment on above: Performed By: #### P [facility] #### [facility] [address] [place] [address] Dr. Jeimy Tenorio Extraction of cataract Patri luis antonio CAMARILLO Procedure on foot Chris MERINO Plan of Treatment Date Care Activity Detail Author Start: 12-30-2023 COVID-19 Vaccine ( season) COVID-19 Vaccine () [facility] Start: 08-16-2023 Adult BMI Screening Adult BMI Screening [facility] Start: 08-16-2023 Fall Risk Screening Fall Risk Screening [facility] Start: 08-16-2023 Tobacco Screening Tobacco Screening [facility] Start: 1974 Administration of varicella zoster vaccine Zoster (Shingles) Vaccine (1 of 2) [facility] Start: 1974 DTaP,Tdap and Td Vaccines (1 - Tdap) DTaP,Tdap and Td Vaccines (1 - Tdap) [facility] Start: 1967 Depression Screening Depression Screening [facility] Start: 1955 Medicare Annual Wellness Visit Medicare Annual Wellness Visit [facility] Immunizations Immunization Date Immunization Notes Care Provider Fa cili 11-04-2023 Covid-19, Mrna, Lnp- s, Bivalent, Pf, 30mcg/0.3 ml Epifanio Kaufman MD Work Phone: [facility] 08-21-2022 influenza virus vacc ine, unspecified formulation Epfianio Kaufman MD Work Phone: [facility] 08-21-2022 SARS-COV-2 (COVID-19 ) Vaccine, Unspecified Epifanio Kaufman MD Work Phone: [facility] 08-06-2021 Influenza Vaccine, Quadrivalent, Adjuvanted Epifanio Kaufman MD Work Phone: [facility] 02-25-2021 COVID-19, mRNA, LNP- S, PF, 100mcg/0.5mL Dose Epifanio Kaufman MD Work Phone: [facility] 02-12-2021 COVID-19, mRNA, LNP- S, PF, 30mcg/0.3mL Dose Epifanio Kaufman MD Work Phone: [facility] 08-05-2020 influenza, injectabl e, quadrivalent, preservative free Ep[facility]io [facility]man MD [facility] 08-05-2020 pneumococcal polysaccharide vaccine, 23 valent [facility]-2019 influenza, seasonal, injectable Epifanio Kaufman MD [facility] [place] 08-24-2019 influenza, injectabl e, quadrivalent, preservative free Epifanio Kaufman MD Work Phone: [facility] Payers Date Payer Category Payer Medicaid [id number] 2023 Self-pay [id number] 2022 Medicare [id number] 2021 Medicare AETNA MEDICARE A ETNA MEDICARE PLAN (HMO) [id number] 2021-Present [phone] [address] [place] [address] [id number] 2021 Unknown [id number] 2021 Medicare [id number] 2020 Medicare [id number] 2019 Unknown [id number] 1959 Medicare [id number] [id number] 1955 Unknown [id number] 2.16.840.1.024149.3.579.2.647 1955 Unknown [id number] 2.16.840.1.933558.3.579.2.593 1955 Unknown [id number] 2.16.840.1.971675.3.579.2.593 1955 Unknown [id number] 2.16.840.1.923257.3.579.2.593 1955 Unknown [id number] 2.16.840.1.652499.3.579.2.593 1955 Unknown [id number] 2.16.840.1.349971.3.579.2.593 1955 Unknown [id number] 2.16.840.1.864821.3.579.2.593 1955 Unknown [id number] 2.16.840.1.821216.3.579.2.593 1955 Unknown [id number] 2.16.840.1.530584.3.579.2.1259 1955 Unknown [id number] 2.16.840.1.893742.3.579.2.1259 1955 Unknown [id number] 2.16.840.1.413042.3.579.2.1259 1955 Unknown [id number] 2.16.840.1.565720.3.579.2.1259 1955 Unknown [id number] 2.16.840.1.761198.3.579.2.1286 1955 Unknown [id number] 2.16.840.1.161377.3.579.2.727 1955 Unknown [id number] 2.16.840.1.118265.3.579.2.727 Medicare [id number] Unknown [id number] 2.16.840.1.177738.3.579.2.531 Social History Date Type Detail Facility Start: 01-01-2021 End: 08-16-2022 Sex Assigned At [facility] Start: 1955 Sex Assigned At Male [facility] Tobacco smoking status No Smokin g Status Entered [facility] Start: 01-29-2020 [facility] History of tobacco use Current smoker [facility] History of tobacco use Cigarette Smoker P [facility] Start: 01-29-2020 End: 01-01-2021 Cigarettes smoked current (pack per day) - Reported 3 [facility] Start: 01-29-2020 Tobacco use and exposure Smokeless tobacco non-user [facility] Start: 08-16-2022 Alcohol intake Ex-drinker (finding) [facility] Childcare Unknown [facility] Start: 1955 Sex Assigned At Not on file P [facility] Clinical Notes 11-21-2020 to 12-21-2023 Telephone Encounter [...] has an appointment set up already at [facility] office. documented in this encounter [facility] 12-21-2023 Telephone encount er Note Received faxed referral for patient to be seen for Lumbar. Called and spoke to patient, stated he has an appointment set up already at [facility] office. [facility] 07-05-2023 Evaluation note Encounter Date Diagnosis [...] fusion of cervical spine (ICD-10 - Z98.1) [facility] 06-09-2023 Hospital Discharge instructions Follow Up Care 04/29/2023 15:31:28 With:RABIA GAN, Chris Brizuela, URL Address: [facility] [address] , [place] [address]- [phone] When: Unknown [facility] 11-10-2022 NotePROCEDURE: XR FOOT RT MIN 3 [...] authenticated by: KELL BLANDON Date: 2022-09-30 08:07[facility] [id number] NotePROCEDURE: XR KNEE LT 4V or >, [...] authenticated by: TRINIDAD BEAVER Date: 2022-08-23 14:20[facility] [id number] NotePROCEDURE: XR KNEE LT 4V or >, [...] Electronically authenticated by: TRINIDAD BEAVER Date: 2022-08-23 14:[address] [place], [place] 6390210-03-2022 NotePROCEDURE: XR KNEE LT 4V or >, [...] Electronically authenticated by: TRINIDAD BEAVER Date: 2022-08-23 14:[address] [place], [place] 6390205-17-2022 Evaluation note* Encounter Date Diagnosis Assessment Notes Treatment Notes Treatment Clinical Notes March, Bilateral impacted cerumen (ICD-10 - H61.23) Avoid using Q-tips or earplugs. Keep your ears clean and dry. Follow-up with your family physician for any further concerns. [facility] Other 02-07-2022 Evaluation note* Encounter Date Diagnosis [...] contact us for further management as needed. [facility] Other 01-01-2021 NoteMR#: [id number] Pt. Name: Nazario Cortes Admitted: 11/20/2020 Discharged: [...] history of coronary artery disease, followed by [facility] Cardiology Clinic that presents to the [facility] Emergency Department with complaints of chest pain. 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 Total time of discharge was 45 minutes. Electronically Signed by: Trinidad Hamilton MD 11/21/2020 08:00 A Trinidad Hamilton MD .. Date Dict: 11/20/2020/06:21 P/Loida Ashley CNP Date Trans: 11/21/2020 12:04 A/shabbir [id number] cc: Jose Marie M.D. [address] [facility] [address] [place] [address] HospitalEvaluation + Plan note Future Appointments Appointment Date:08/19/2023 10:30:00 AM Scheduled Provider:Chris CAMARILLO MD Location:[facility] Appointment Type:URO New Patient [facility] evaluation noteNo assessment information available [facility] Work Phone: History general Narrative - Reported* Type Description Date Medical History Seizure Disorder Medical History neuropathy Medical History HX of Bladder CA Medical History hypercholesterolemia Surgical History TUMOR REMOVED FROM BLADDER Surgical History RIGHT ACHILLES TENDON REPAIR Hospitalization History See Above [facility] Other History general Narrative - Reported* Type [...] Surgical History gallbladder Hospitalization History See Above [facility] Hospital course Narrative No data available for this section [facility] InstructionsNot on filedocumented in this encounter [facility] No data available for this section [facility] reason for visit NarrativeReferral Dr. Newell Lumbar RadiculopathyNcenterpoint [facility] Other Summary Purpose Family History No Family [...] o other toxic agents (G62.2) Referral Organization [facility] u[facility]urgery Referring Provider First Name Luiz Referring Provider Last Name Keely Referring Provider Specialty Neurologica l Surgery Referred Organization [facility] Referred Address ,[place], [place],[address] Referred Provider Specialty Physical The rapist Referral Priority Routine Chief Complaint and Reason for Visit Chief Complaint m51.36. Additional Source Comments (unrecognized sect ion and content) No Status Records FoundNo Status Records FoundNo Status Records FoundNo Status Records FoundNo Status Records FoundNo Status Records FoundNo Status Records FoundNo Status Records Found INFORMATION SOURCE (unrecogn ized section and content) DATE CREATED AUTHOR 08/29/2021 [facility] DATE CREATED AUTHOR AUTHOR'S ORGANIZ ATION 10/31/2021 [facility] DATE CREATED AUTHOR AUTHOR'S ORGANIZ ATION 01/13/2023 [facility] DATE CREATED AUTHOR AUTHOR'S ORGANIZ ATION 07/14/2023 [facility] DATE CREATED AUTHOR AUTHOR'S ORGANIZ ATION 12/17/2023 [facility] EPIC DATE CREATED AUTHOR AUTHOR'S ORGANIZ ATION 12/20/2023 [facility] DATE CREATED AUTHOR AUTHOR'S ORGANIZ ATION 12/25/2023 [facility] DATE CREATED AUTHOR AUTHOR'S ORGANIZ ATION 12/29/2023 [facility] REASON FOR VISIT (unrecogniz ed section and content) RIGHT EAR PRESSURE/PAIN, DEN IES OTHER SXSleft leg weakness, back pain Care Teams (unrecognized sec tion and content) Team Status: Active Member Role Status Dates Jignesh Gonsalez MD Primary Care Provider Active Team Status: Inactive Member Role Status Dates Luiz Riggs MD Attending Provider Active Jignesh Gonsalez MD Primary Care Provider Active 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 [facility] provides no warranty or guarantee of the accuracy or completeness of information in this document.
[2023-12-31 05:03] LABS: Hematocrit 40.5 % (42.0-54.0); Hemoglobin 13.2 g/dL (14.0-18.0); Mean Corpuscular HGB Conc 32.6 g/dL (29.9-35.2); Mean Corpuscular Hemoglobin 33.2 pg (25.9-34.0); Mean Platelet Volume 10.2 fL (9.5-13.5); Platelet Count 179 10^3/uL (150-450); Red Blood Count 3.97 10^6/uL (4.70-6.10); Red Cell Distribution Width 13.1 % (11.0-15.0); White Blood Count 6.5 10^3/uL (4.0-11.0)
[2023-12-31 05:27] LABS: Estimated Average Glucose 103 mg/dL; Glycohemoglobin A1C 5.2 % (4.5-6.2)
[2023-12-31 05:28] LABS: Anion Gap 11.7; Calcium 8.5 mg/dL (8.5-10.1); Carbon Dioxide 27.5 mmol/L (21.0-32.0); Chloride 106 mmol/L (98-107); Estimated GFR (African America >60 (>=60); Estimated GFR (Non-African Ame >60 (>=60); Glucose 99 mg/dL (74-106); Potassium 4.2 mmol/L (3.5-5.1); Sodium 141 mmol/L (136-145); Troponin I High Sensitivity 5.2 pg/mL (4.0-76.1)
[2023-12-31 05:29] LABS: Chol HDL Ratio 2.5; Cholesterol 152 mg/dL (<=200); HDL Cholesterol 62 mg/dL (40-60); Triglycerides 103 mg/dL (<=150); VLDL CHOLESTEROL 20.6 mg/dL
[2023-12-31 05:39] LABS: Thyroid Stimulating Hormone 1.949 uIU/mL (0.358-3.740)
[2023-12-31] MEDS: CITALOPRAM HYDROBROMIDE 20 MG TABLET 40 MG PO (09:28)
[2023-12-31 10:17] LABS: Adenovirus NOT DETECTED (NOT DETECTE); Bordetella parapertussis NOT DETECTED (NOT DETECTE); Coronavirus 229E NOT DETECTED (NOT DETECTE); Coronavirus HKU1 NOT DETECTED (NOT DETECTE); Coronavirus NL63 NOT DETECTED (NOT DETECTE); Coronavirus OC43 NOT DETECTED (NOT DETECTE); Human Metapneumovirus NOT DETECTED (NOT DETECTE); Human Rhinovirus/Enterovirus NOT DETECTED (NOT DETECTE); Influenza A NOT DETECTED (NOT DETECTE); Influenza B NOT DETECTED (NOT DETECTE); Mycoplasma pneumoniae NOT DETECTED (NOT DETECTE); Parainfluenza Virus 1 NOT DETECTED (NOT DETECTE); Parainfluenza Virus 2 NOT DETECTED (NOT DETECTE); Parainfluenza Virus 3 NOT DETECTED (NOT DETECTE); Parainfluenza Virus 4 NOT DETECTED (NOT DETECTE); Respiratory Syncytial Virus NOT DETECTED (NOT DETECTE); SARS-CoV-2 NOT DETECTED (NOT DETECTE)
--- NOTE | 2023-12-31 12:05 | P.HP_ITS ---
H&P: HPI History of Present Illness Chief complaint: CP Narrative: HPI and hospital course: 68 y o male with hx of non obstructive CAD, HLD presented to ED with sudden onset pain across his upper chest and back, associated SOB, that lasted for about an hour or two and resolved once he received SL nitro. Denies cough, fever, respiratory symptoms. Patient is not very active physically and does not exercise. He has sig fhx of CAD - including his father who had CABG. He is a former smoker. He had LHC in 2008 that showed mild two vessel non obs CAD and since then he has been on ASA, statin for it. Remained CP free overnight. No sig events on tele. No sig ischemic/concerning changes on EKG. Negative cardiac e nzymes. CTA - no PE Because of his risk factors, it is not unreasonable to order a Nuclear stress test for him, he is unable to exercise/run on a treadmill due to unsteady gait and poor balance. Ordered outpatient Nuclear stress test. Patient to follow up with PCP after Nuclear stress test. Instructed to return to ED if chest pain recurs. 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 - Malignant neoplasm of mediastinum, part unspecified (ICD-10) Bladder cancer ?C67.9 - Malignant neoplasm of bladder, unspecified (ICD-10) HLD (hyperlipidemia) ?E78.5 - Hyperlipidemia, unspecified (ICD-10) Family History (Updated 12/31/23 @ 12:13 by Shaikh Florentin MD) Father Family history of myocardial infarction Sister Family history of cancer Social History Smoking status: Never smoker Highest level of school completed/degree received: Associate degree: occupational, technical, vocational program Gender Identity: male Meds Home Medications and Allergies Home Medications Medication Instructions Recorded Confirmed Type atorvastatin 10 mg tablet 10 mg PO .hs 05/12/23 12/30/23 History citalopram 40 mg tablet 40 mg PO DAILY 05/12/23 12/30/23 History meclizine 25 mg tablet 25 mg PO QID PRN dizziness 05/12/23 12/31/23 History phenobarbital 32.4 mg tablet 32.4 mg PO Q12H 05/12/23 12/30/23 History phenytoin sodium extended 100 mg 100 mg PO Q8H 05/12/23 12/30/23 History capsule bupropion HCl 150 mg 24 hr tablet, 150 mg PO DAILY 12/30/23 12/31/23 History extended release Allergies Allergy/AdvReac Type Severity Reaction Status Date / Time gabapentin Allergy Intermediate Verified 12/30/23 22:49 oxycodone [From OxyContin] Allergy Intermediate Verified 12/30/23 22:49 phenytoin [From Dilantin] Allergy Intermediate Verified 12/30/23 22:49 Exam Constitutional Vital Signs, click to edit/add: Last Vital Signs Temp 98.6 F 12/31/23 09:42 Pulse 71 12/31/23 11:42 Resp 16 12/31/23 11:42 BP 126/65 12/31/23 09:42 Pulse Ox 96 12/31/23 11:42 O2 Del Method Room Air 12/31/23 09:42 O2 Flow Rate 2 12/30/23 23:00 Documenting provider has reviewed patient's vital signs: yes Common normals: no apparent distress and oriented x3 General appearance: cooperative Respiratory Common normals: normal respiratory effort and clear to auscultation bilaterally Effort & inspection: able to speak in complete sentences Auscultation: clear to auscultation bilaterally Cardio Common normals: regular rate, S1 normal heart sound and S2 normal heart sound Rate: regular rate Heart sounds: S1 normal and S2 normal GI Common normals: Normal to inspection, nondistended, normoactive bowel sounds present, soft to palpation, non-tender and no hepatosplenomegaly Palpation: soft and no hepatosplenomegaly Extremity Common normals: no clubbing, cyanosis or edema Neuro Common normals: oriented x3, moves all extremities and no focal motor deficits Psych Common normals: mental status grossly normal, denies hallucinations, denies homicidal ideation and denies suicidal ideation Results Labs Labs: Short CBC 12/30/23 12/31/23 Range/Units 22:45 04:00 WBC 7.1 6.5 (4.0-11.0) 10^3/uL Hgb 13.7 L 13.2 L (14.0-18.0) g/dL Hct 41.9 L 40.5 L (42.0-54.0) % Plt Count 197 179 (150-450) 10^3/uL BMP 12/30/23 12/31/23 22:45 04:00 Sodium 141 141 Potassium 4.1 4.2 Chloride 105 106 Carbon Dioxide 26.0 27.5 BUN 17.0 17.0 Creatinine 0.83 0.81 Glucose 88 99 Calcium 8.3 L 8.5 Assessment and Plan Assessment and Plan (1) Chest pain: Qualifiers: Chest pain type: unspecified Qualified Code(s): R07.9 - Chest pain, unspecified (2) CAD, multiple vessel: (3) HLD (hyperlipidemia): Qualifiers: Hyperlipidemia type: unspecified Qualified Code(s): E78.5 - Hyperlipidemia, unspecified (4) Bladder cancer: Qualifiers: Bladder location: unspecified site Qualified Code(s): C67.9 - Malignant neoplasm of bladder, unspecified (5) Extragonadal germ cell tumor of mediastinum: Plan Admitted for CP r/o ACS. No sig ischemic changes on EKG, Negative cardiac enzymes. CP resolved since he was given SL Nitro. Will order outpatient nuclear stress test. C/w ASA, lipitor. Instructed to return to ED if CP recurs. Stable for discharge.
--- NOTE | 2024-01-02 14:25 | CM.DCFOLLOWU ---
Person spoke with: patient How are you feeling? well How is your pain? no pain Did you understand your discharge instructions? yes Do you have any questions about your discharge instructions? no Were you given any prescriptions at discharge? no Were you able to get your prescriptions filled? N.A Do you understand how to take your medications as ordered? yes Do you have any questions about your follow up appointment and do you plan to keep your follow up appointment? no questions, follow scheduled with PCP next Tuesday01/09/24 Is there anything else that you would like to discuss? no Questions/Comments/Concerns/Other:
== END 2023-12-31 14:56 | disposition home or self-care (01) ==
LOC: ER 12-31 01:13 → ICU 12-31 01:29
PROVIDERS: Registered Nurse; Admitting Provider Internal Medicine; Emergency Provider Emergency Medicine; PCP Family Medicine; Visit Provider Internal Medicine
DX: R07.9 Chest pain, unspecified (principal); I25.10 Atherosclerotic heart disease of native coronary artery without angina pectoris; E78.5 Hyperlipidemia, unspecified; R06.02 Shortness of breath; C38.3 Malignant neoplasm of mediastinum, part unspecified; C67.9 Malignant neoplasm of bladder, unspecified; Z87.891 Personal history of nicotine dependence; Z79.899 Other long term (current) drug therapy; Z20.822 Contact with and (suspected) exposure to COVID-19
CPT/HCPCS: 0202U; 36415; 71045; 71275; 80048; 80061; 83036; 83880; 84443; 84484; 85025; 85027; 93005; 99285; G0378; Q9967

== ENCOUNTER 2024-01-30 15:13 | Emergency (ER) | payer MEDICARE, MEDICAID, SELFPAY ==
[2024-01-30 15:18] VITALS: BP 131/81; PULSE 67; RESP 18; TEMP 36.6; O2SAT 100; BMI 38.0
--- NOTE | 2024-01-30 15:27 | ED_ITS ---
HPI - General Adult General Chief complaint: Head Injury Stated complaint: KNEE PAIN NECK PAIN Time Seen by Provider: 01/30/24 15:22 Source: patient and other Source information: EMS Mode of arrival: ambulance Limitations: physical limitation History of Present Illness HPI narrative: 69 year old male presents to the ED for pain to his left wrist, right knee, and neck s/p trip and fall today. Denies hitting his head and LOC. He has had previous cervical spine surgery. Denies change in bowel and/or bladder control. Denies saddle anesthesia. Denies dizziness, vision changes, weakness, N/V. Denies pain to his head, chest, abdomen, back, hips. His last tetanus update was <5 years ago. Related Data Home Medications Medication Instructions Recorded Confirmed atorvastatin 10 mg tablet 10 mg PO .hs 05/12/23 12/30/23 citalopram 40 mg tablet 40 mg PO DAILY 05/12/23 12/30/23 meclizine 25 mg tablet 25 mg PO QID PRN dizziness 05/12/23 12/31/23 phenobarbital 32.4 mg tablet 32.4 mg PO Q12H 05/12/23 12/30/23 phenytoin sodium extended 100 mg 100 mg PO Q8H 05/12/23 12/30/23 capsule bupropion HCl 150 mg 24 hr tablet, 150 mg PO DAILY 12/30/23 12/31/23 extended release Allergies Allergy/AdvReac Type Severity Reaction Status Date / Time gabapentin Allergy Intermediate Verified 01/30/24 15:16 oxycodone [From OxyContin] Allergy Intermediate Verified 01/30/24 15:16 phenytoin [From Dilantin] Allergy Intermediate Verified 01/30/24 15:16 Review of Systems ROS Constitutional Denies: fever or chills Eyes Denies: blurry vision Ears, nose, mouth, and throat Reports: neck pain Cardiovascular Denies: chest pain Respiratory Denies: shortness of breath Gastrointestinal Denies: abdominal pain, nausea or vomiting Musculoskeletal Reports: neck pain and extremity pain; Denies: back pain Integumentary/Breast Reports: new lesion; Denies: rash Neurological Denies: headache, numbness in extremities, weakness in extremities, dizziness or slurred speech [facility] Medical History (Updated 01/30/24 @ 16:56 by Farida Wheeler) CAD, multiple vessel ?I25.10 - Atherosclerotic heart disease of [place] coronary artery without angina pectoris (ICD-10) 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 - Malignant neoplasm of mediastinum, part unspecified (ICD-10) Bladder cancer ?C67.9 - Malignant neoplasm of bladder, unspecified (ICD-10) HLD (hyperlipidemia) ?E78.5 - Hyperlipidemia, unspecified (ICD-10) Chest pain ?R07.9 - Chest pain, unspecified (ICD-10) Family History (Updated 12/31/23 @ 12:13 by Shaikh Florentin MD) Father Family history of myocardial infarction Sister Family history of cancer Social History Smoking status: Former smoker Highest level of school completed/degree received: Associate degree: occupational, technical, vocational program Gender Identity: male Exam Constitutional Vital Signs, click to edit/add: Last Vital Signs Temp 97.8 F 01/30/24 15:18 Pulse 67 01/30/24 15:18 Resp 18 01/30/24 15:18 BP 131/81 01/30/24 15:18 Pulse Ox 100 01/30/24 15:18 O2 Del Method Room Air 01/30/24 15:18 Common normals: no apparent distress and oriented x3 General appearance: cooperative HENMT Common normals: normocephalic and head/scalp atraumatic Face and sinus: normal facial exam Nose: external nose normal External ear: external ears normal Mouth: oral and palatal mucosa normal Eye Common normals: PERRL, EOMs intact bilaterally, conjunctivae normal and no scleral icterus Neck & C-Spine Common normals: supple Cervical spine: paracervical muscle tenderness; no cervical spine tenderness Chest Common normals: palpation of chest normal Chest: symmetrical chest wall rise Respiratory Common normals: normal respiratory effort Effort & inspection: able to speak in complete sentences Cardio Common normals: regular rate and regular rhythm Peripheral pulses: radial pulses present and dorsalis pedis pulses present Back & Pelvis Thoracic spine/upper back: normal to inspection; no thoracic spinal tenderness and no paraspinal muscle tenderness Lumbar spine/lower back: normal to inspection; no lumbar spinal tenderness and no paraspinal muscle tenderness Extremity Other: Tenderness to right knee. Abrasion to right knee. No swelling or deformity noted. Full ROM to right knee. Tenderness to left medial wrist. Abrasion to left medial wrist. Full ROM. No swelling or deformity noted. Distal sensation intact. Course Vital Signs Vital signs: Vital Signs Temperature 97.8 F 01/30/24 15:18 Pulse Rate 67 01/30/24 15:18 Respiratory Rate 18 01/30/24 15:18 Blood Pressure 131/81 01/30/24 15:18 Pulse Oximetry 100 01/30/24 15:18 Oxygen Delivery Method Room Air 01/30/24 15:18 Temperature 97.8 F 01/30/24 15:18 Pulse Rate 67 01/30/24 15:18 Respiratory Rate 18 01/30/24 15:18 Blood Pressure 131/81 01/30/24 15:18 Pulse Oximetry 100 01/30/24 15:18 Oxygen Delivery Method Room Air 01/30/24 15:18 Medical Decision Making MDM Narrative Medical decision making narrative: Imaging was negative for acute findings. The patient was alert and oriented with a steady gait. Follow up with pcp for a recheck, further evaluation and milli atment. He was discharged to family. Medical Records Medical records reviewed: Yes I reviewed the patient's medical records Imaging Data XR left wrist, XR right knee, XR CS: Radiologist's impression: ITS Impressions Cervical Spine X-Ray 01/30/24 16:01 IMPRESSION: Postoperative and multilevel degenerative changes of the cervical spine without evidence for complication or acute fracture. Electronically authenticated by: ARLEEN DIAZ Date: 01/30/2024 16:16 Knee X-Ray 01/30/24 16:01 IMPRESSION: No acute fracture or dislocation. Mild tricompartment osteoarthritis. Patellar enthesopathy. No significant joint effusion. Mild prepatellar soft tissue swelling. Electronically authenticated by: ARLEEN DIAZ Date: 01/30/2024 16:13 Discharge Plan Discharge Stand Alone Forms: Portal Instructions Chief Complaint: Head Injury Clinical Impression: Fall, Neck pain, Injury of knee, right, Abrasion, right knee, initial encounter, Abrasion of left wrist Patient Disposition: Home, Self-Care Time of Disposition Decision: 16:55 Condition: Good Mode of Transportation: Private Vehicle Prescriptions / Home Meds: No Action bupropion HCl 150 mg tablet extended release 24 hr 150 mg PO DAILY atorvastatin 10 mg tablet 10 mg PO .hs citalopram 40 mg tablet 40 mg PO DAILY meclizine 25 mg tablet 25 mg PO QID PRN (Reason: dizziness) phenobarbital 32.4 mg tablet 32.4 mg PO Q12H phenytoin sodium extended 100 mg capsule 100 mg PO Q8H Instructions: Cervical Strain (ED), Abrasion (ED), Knee Pain (ED), Wrist Sprain (ED) Additional Instructions: Return to the ER if your condition worsens. Referrals: Jignesh Manjarrez MD [Primary Care Provider] - 1 week Discharge Date/Time: 01/30/24 17:09
--- OUTSIDE RECORDS SUMMARY | 2024-01-30 15:33 | XMS_ITS | CCD ---
Author Name Unknown Address [address] [place] [address] Organization [facility] Care Team Providers Care Lead Network Architect Name Role Phone KARINA JAY Attending Unavailable SELF, REFERRED Referring Unavailable JOSE MARIE Primary Care Unavailable JOHN MEJÍA Admitting Unavailable Alex Bonilla Unavailable Neelam Morris Unavailable AME, DR JOSE Danielson Admitting Unavailable AME, DR JOSE Danielson Attending Unavailable WALLACE, DR JIGNESH Means Primary Care Unavailable AME, DR JOSE Danielson Primary Care Unavailable CARRIE LAZO Consulting Unavailable FAWWAD, TONY H Admitting Unavailable FAWWAD TONY H Attending Unavailable FAWWAD, TONY H Consulting Unavailable MAMIE ALFORD Consulting Unavailable HAY ., DR BUENROSTRO Admitting Unavailable HAY ., DR BUENROSTRO Attending Unavailable NADERER, DR JIGNESH Means Primary Care Unavailable LE RAYS[place], DR TRINIDAD Cummins Consulting Unavailable LUZMARIA .YONAS Consulting Unavailable WALLACE, DR JIGNESH Means Primary Care Unavailable HAY ., DR BUENROSTRO Admitting Unavailable HAY ., DR BUENROSTRO Attending Unavailable HAY ., DR BUENROSTRO Consulting Unavailable ALEJANDRO PINEDA Consulting Unavailable NADEREChata, DR JIGNESH Means Primary Care Unavailable PAY [...] WALLACE, DR JIGNESH Means Primary Care Unavailable DR KELL BLANDON Consulting Unavailable WALLACE, DR JIGNESH Means Consulting Unavailable Luiz Riggs Unavailable MD Luiz Riggs Attending Provider MD Jignesh Gonsalez Primary Care Provider [phone] Luiz Riggs Attending Unavailable Luiz Riggs Admitting Unavailable Jignesh Gonsalez Primary Care Unavailable JIGNESH GONSALEZ Primary Care Physician Zenmirian HUDSON Jose Erum Primary Care Provider Chris CAMARILLO Attending Unavailable JIGNESH GONSALEZ Referring Unavailable Chris CAMARILLO Attending Unavailable OVITT, CORNELIO Attending Unavailable CORNELIO HODGES Referring Unavailable ROGERIO BAINS Referring Unavailable JIGNESH GONSALEZ Attending Unavailable JIGNESH GONSALEZ Attending Unavailable SHAIKH MOTLEY Attending Unavailable Allergies Allergy Classification Reported Allergen(s) Allergy Type Date of Onset Reaction(s) Facility (5 sources) gabapentin; Translations: [GABAPENTIN] Drug Allergy 0 [facility] Repository (2 sources) oxyCODONE Drug Allergy 0 [facility] Repository (3 sources) Phenytoin; Translations: [Dilantin] Drug Allergy 0 [facility] Repository (5 sources) gabapentin; Translations: [gabapentin] Drug Allergy 0 Unknown (qualifier value) [facility] (8 sources) oxyCODONE; Translations: [oxycodone] Drug Allergy 0 Difficulty breathing (finding), Angioedema [facility] (5 sources) Phenytoin; Translations: [phenytoin] Drug Allergy 6 Dizziness (finding), Dizziness [facility] (1 source) Phenytoin; Translations: [PHENYTOIN SODIUM EXTENDED] Drug Allergy 6 [facility] Repository (1 source) ALLERGIES NOT ON FILE; Translations: [ALLERGIES NOT ON FILE] Propensity to adverse reactions (disorder) [facility] Repository Medications Current Medications Medication Drug Class(es) Dates Sig (Normalized) Sig (Original) Acetaminophen / HYDROcodone (2 sources) Opioid Agonist [place] Active take 1 tablet by ambika th [...] 2 mg/ml injectable solution (1 source) vit [id number]-B5- B6 (B-COMPLEX INJECTION) 497-2-055-2-2 mg/mL solution B-Complex 1 QD 0 Active [...] 0 Active Meloxicam Not-Ta noa Meloxicam Active kzxltgouswyb-yosvktmc-opzotj (MULTIVITAMIN 50 PLUS) tablet (1 source) multivitamin-min [...] 08/30/2022 Active take 1 capsule by mo uth every twelve hours Phenytoin Sodium Extended 100 [...] disease (1 source) Atherosclerotic heart disease of [place] coronary artery without angina pectoris; Translations: [ASHD [place] CA W/O ANGINA PECTORIS] Onset: 12-27-2022 Chronic [...] 08-16-2022 08-16-2022 Chronic Other aftercare (1 source) detention (current) use of aspirin; Translations: [RETIREMENT CURRENT USE OF ASPIRIN] Onset: 12-27-2022 Episodic Other aftercare (1 source) Other retirement (current) drug therapy; Translations: [OTH 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 CURRENT DRUG THERAPY] Onset: 12-27-2022 Episodic Other [...] lumbar region] Onset: 12-28-2021 Resolved: 12-28-2021 Chronic Spondylosis; intervertebral disc disorders; other back problems (3 sources) Pain in thoracic spine; Translations: [Spinal stenosis, cervical region] Onset: 06-22-2022 Episodic Superficial injury; contusion (2 sources) Contusion of [...] findings of blood chemistry] Onset: 06-22-2022 Episodic Sprains and strains (1 source) Sprain of unspecified site of left knee, initial encounter; Translations: [SPRAIN UNS SITE LT KNEE INITIAL] Onset: 08-25-2022 Episodic Results Test Name Value Interpretation Reference Range Facility Consulton 01-05-2024 Consult [id number] Nazario Cortes 1955 M Date Provider Department Center 01/05/2024 Oscar-CORNELIO HODGES [facility] SURG [place] Family History Problem Relation Age of Onset Supraventricular tachycardia Mother Stroke Father Kidney cancer Sister Diabetes Sister COPD Brother Family Status - Relation Status Age at Mother Father Sister Brother Level of Service:97203 NE OFFICE/OUTPATIENT NEW MODERATE MDM 45 MINUTES Reason for Visit and Comments: Consult [484] - Nazario is here today for a consult visit for lumbar stenosis. Patient states that the pain starts in the lower back and radiates to left hip. Patient states that the pain is worse when standing. Patient states that sitting and laying stretching the back out helps. Patient states that he went to pain management and received injections with little relief about 6-7 years ago. Normal [facility] XR lumbar spine 6V w bending on 07-05-2023 XR lumbar spine 6V w bending [facility] [place] [address] XRay Report Signed Patient: Nazario Cortes Jr MR#: [id number] : 1955 Acct:[id number] Age/Sex: 68 / M ADM Date: 07/05/23 Loc: XD Room: Type: [facility] [address] Attending Dr: Luiz Riggs MD Copies to: [...] Hoa Lockwood M.D.07/05/2023 2:21 PM Dictation Location: [place] [address] Transcribed By: [facility] 07/05/23 1421 Dictated By: Hoa Lockwood MD 07/05/23 1415 Signed By: 07/05/23 1421 [facility] US CAROTID ART BILon 023 US [...] by: KELL BLANDON Date: 2023-01-11 08:[address] [facility] ECHOCARDIO M/2D COMPLETEon 0 01-07-2023 ECHOCARDIO M/2D COMPLETE Patient: NAZARIO CORTES Exam Date: 01/07/2023 : 1955 Gender:M Ordering : DR JIGNESH GONSALEZ . Admission #: [id number] Family : Order #: [id number] CLICK HERE TO VIEW EXAM ECHOCARDIOGRAM REPORT [...] Smith M.D. on 01/11/2023 at 18:23 Normal [facility] XR ELBOW LT MIN 3 VIEWSon [...] by: VIDAL FRASER Date: 2022-12-24 20:23 Normal [facility] XR HIP LT 2 3V W [...] VIDAL FRASER Date: 2022-12-24 20:21 Normal [facility] XR HUMERUS LT MIN 2Von 12-24 [...] KELL DELANEY Date: 2022-12-24 21:03 Normal [facility] CBC AUTO DIFFon 11-04-2022 BASO # 0.1 103/ul Normal 0.0-0.[address] [facility] Comment on above: Performed By: #### B MP, CMREP, LIPID #### [facility] [address] [place] [address] [address] Jeimy Tenorio Basophils/100 WBC (Bld) 0.9 % Normal 0.2-2.[address] [facility] Comment on above: Performed By: #### B MP, CMREP, LIPID #### [facility] [address] [place] [address] Dr. Jeimy Tenorio EO # 0.3 103/ul Normal 0.0-0.7 [facility] Comment on above: Performed By: #### B MP, CMREP, LIPID #### [facility] [address] [place] [address] Dr. Jeimy Tenorio Eosinophils/100 WBC (Bld) 5.2 % Normal 0.9-7.0 [facility] Comment on above: Performed By: #### B MP, CMREP, LIPID #### [facility] [address] [place] [address] Dr. Jeimy Tenorio Erythrocyte distribution width (RBC) [Ratio] 12.9 % Normal 11.0-15.[address] [facility] Comment on above: Performed By: #### B MP, CMREP, LIPID #### [facility] [address] [place] [address] Dr. Jeimy Tenorio Hematocrit (Bld) [Volume fraction] 39.5 % Critically low 42.0-54.[address] [facility] Comment on above: Performed By: #### B MP, CMREP, LIPID #### [facility] [address] [place] [address] Dr. Jeimy Tenorio Hemoglobin (Bld) [Mass/Vol] 13.1 g/dL Critically low 14.0-18.[address] [facility] Comment on above: Performed By: #### B MP, CMREP, LIPID #### [facility] [address] [place] [address] Dr. Jeimy Tenorio IG # 0.03 10e3/ul Normal 0.00-0.03 [facility] Comment on above: Performed By: #### B MP, CMREP, LIPID #### [facility] [address] [place] [address] Dr. Jeimy Tenorio IG % 0.5 % Normal 0.0-0.[address] [facility] Comment on above: Performed By: #### B MP, CMREP, LIPID #### [facility] [address] [place] [address] Dr. Jeimy Tenorio LYMPH # 1.5 103/ul Normal 1.2-3.8 [facility] Comment on above: Performed By: #### B MP, CMREP, LIPID #### [facility] [address] [place] [address] Dr. Jeimy Tenorio Lymphocytes/100 WBC (Bld) 22.6 % Normal 20.5-60.0 [facility] Comment on above: Performed By: #### B MP, CMREP, LIPID #### [facility] [address] [place] [address] Dr. Jeimy Tenorio MANUAL DIFF REQ NO Normal [facility] Comment on above: Performed By: #### B MP, CMREP, LIPID #### [facility] [address] [place] [address] Dr. Jeimy Tenorio MCH (RBC) [Entitic mass] 32.8 pg Normal 25.9-34.0 [facility] Comment on above: Performed By: #### B MP, CMREP, LIPID #### [facility] [address] [place] [address] Dr. Jeimy Tenorio MCHC (RBC) [Mass/Vol] 33.2 g/dL Normal 29.9-35.2 [facility] Comment on above: Performed By: #### B MP, CMREP, LIPID #### [facility] [address] [place] [address] Dr. Jeimy Tenorio MCV (RBC) [Entitic vol] 99.0 fL Critically high 80.0-94.0 [facility] Comment on above: Performed By: #### B MP, CMREP, LIPID #### [facility] [address] [place] [address] Dr. Jeimy Tenorio MONO # 0.7 103/ul Normal 0.3-0.8 [facility] Comment on above: Performed By: #### B MP, CMREP, LIPID #### [facility] [address] [place] [address] Dr. Jeimy Tenorio Monocytes/100 WBC (Bld) 10.6 % Normal 1.7-12.0 [facility] Comment on above: Performed By: #### B MP, CMREP, LIPID #### [facility] [address] [address] [address] Jeimy Tenorio NEUT # 4.0 103/ul Normal 1.4-6.[address] [facility] Comment on above: Performed By: #### B MP, CMREP, LIPID #### [facility] [address] [address] [address] Jeimy Tenorio Neutrophils/100 WBC (Bld) 60.2 % Normal 43.0-75.[address] [facility] Comment on above: Performed By: #### B MP, CMREP, LIPID #### [facility] [address] [place] [address] Dr. Jeimy Tenorio Platelet mean volume (Bld) [Entitic vol] 9.7 fL Normal 9.5-13.[address] [facility] Comment on above: Performed By: #### B MP, CMREP, LIPID #### [facility] [address] [place] [address] Dr. Jeimy Tenorio PLT 176 103/ul Normal 150-[address] [facility] Comment on above: Performed By: #### B MP, CMREP, LIPID #### [facility] [address] [place] [address] Dr. Jeimy Tenorio RBC 3.99 106/ul Critically low 4.70-6.10 [facility] Comment on above: Performed By: #### B MP, CMREP, LIPID #### [facility] [address] [place] [address] Dr. Jeimy Tenorio WBC 6.6 103/ul Normal 4.0-11.0 [facility] Comment on above: Performed By: #### B MP, CMREP, LIPID #### [facility] [address] [place] [address] HEAD WO CONon [...] ALEJANDRO PINEDA Date: 2022-11-04 14:08 Normal [facility] Covid-19 PCR (CVDTB)on 10-21 SARS-CoV-2 (COVID-19) RNA ALEX+probe Ql (Unsp spec) Not detected Normal NOT DETECTED [facility] Comment on above: Result Comment: This test is not yet approved or cleared by the [place] FDA. When there are no FDA-approved or cleared tests available, and other criteria are met, FDA can make tests available under an emergency access mechanism called an Emergency Use Authorization (EUA). The EUA for this test is supported by the [place] of Health and Human Service's (HHS's) declaration [...] By: #### B MP, CMREP, LIPID #### [facility] [address] [place] [address] Dr. Jeimy Tenorio INFLUENZA A AND B AGon 11-04 [facility] Normal [facility] Comment on above: Result Comment: Nega tive for Flu A protein angiten. Infection due to Flu A cannot be ruled out. Flu A angiten in the sample may be below the detection limit of the test. Performed By: #### I NFLUAB #### [facility] [address] [place] [address] Dr. Jeimy Tenorio INFLUBNEG SEE BELOW Normal [facility] Comment on above: Result Comment: Nega tive for Flu B protein antigen. Infection due to Flu B cannot be ruled out. Flu B antigen in the sample may be below the detection limit of the test. Performed By: #### I NFLUAB #### [facility] [address] [place] [address] Dr. Jeimy Tenorio INFLUENZA A AG Negative Normal NEGATIVE SEE COMMENT [facility] Comment on above: Performed By: #### I NFLUAB #### [facility] [address] [place] [address] Dr. Jeimy Tenorio INFLUENZA B AG Negative Normal NEGATIVE SEE COMMENT [facility] Comment on above: Performed By: #### I NFLUAB #### [facility] [address] [place] [address] Dr. Jeimy Tenorio INTERNAL CONTROLS Within Normal Limits Normal Wi thin Normal Limits [facility] Comment on above: Performed By: #### I NFLUAB #### [facility] [address] [place] [address] Dr. Jeimy Tenorio PROF CHEM 8 (BAS METB)on Anion gap [Moles/Vol] 9.7 mmol/L Normal [facility] Comment on above: Performed By: #### C BC #### [facility] [address] [place] [address] Dr. Jeimy Tenorio Calcium [Mass/Vol] 8.0 mg/dL Critically low 8.5-10.1 [facility] Comment on above: Performed By: #### C BC #### [facility] [address] [place] [address] Dr. Jeimy Tenorio Chloride [Moles/Vol] 104 mmol/L Normal 98-[address] [facility] Comment on above: Performed By: #### C BC #### [facility] [address] [address] [address] Jeimy Tenorio CO2 [Moles/Vol] 31.1 mmol/L Normal 21.0-32.0 [facility] Comment on above: Performed By: #### C BC #### [facility] [address] [place] [address] Dr. Jeimy Tenorio Creatinine [Mass/Vol] 0.75 mg/dL Normal 0.70-1.30 [facility] Comment on above: Performed By: #### C BC #### [facility] [address] [place] [address] Dr. Jeimy Tenorio EGFR-AF VENEZUELAN >60 Normal >=60 [facility] Comment on above: Performed By: #### C BC #### [facility] [address] [place] [address] Dr. Jeimy Tenorio EGFR-NON AF VENEZUELAN >60 Normal >=[address] [facility] Comment on above: Performed By: #### C BC #### [facility] [address] [place] [address] Dr. Jeimy Tenorio Glucose [Mass/Vol] 76 mg/dL Normal 74-106 [facility] Comment on above: Performed By: #### C BC #### [facility] [address] [place] [address] Dr. Jeimy Tenorio Potassium [Moles/Vol] 3.8 mmol/L Normal 3.5-5.1 [facility] Comment on above: Performed By: #### C BC #### [facility] [address] [place] [address] Dr. Jeimy Tenorio Sodium [Moles/Vol] 141 mmol/L Normal 136-145 [facility] Comment on above: Performed By: #### C BC #### [facility] [address] [place] [address] Dr. Jeimy Tenorio Urea nitrogen [Mass/Vol] 12.0 mg/dL Normal 7.0-18.0 [facility] Comment on above: Performed By: #### C BC #### [facility] [address] [place] [address] Dr. Jeimy Tenorio Urea nitrogen/Creatinine [Mass ratio] 16.0 mg/mg Normal [facility] Comment on above: Performed By: #### C BC #### [facility] [address] [place] [address] Dr. Jeimy Tenorio TROPONIN, HIGH SENSITIVITYon 11-04-2022 HSTROP 5.8 pg/mL Normal 4.0-76.[address] [facility] Comment on above: Result Comment: CUT- OFF POINTS HAVE BEEN ESTABLISHED BASED ON THE FOURTH UNIVERSAL DEFINITIONS OF MYOCARDIAL INFARCTION. THE UPPER REFERENCE LIMIT (URL) OF TROPONIN, DEFINED THE 99TH PERCENTILE OF cTnI DISTRIBUTION IN A REFERENCE POPULATION, HAS BEEN CONFIRMED THE DECISION THRESHOLD FOR LA DIAGNOSIS. Performed By: #### C BC #### [facility] [address] [place] [address] Dr. Jeimy Tenorio CBC AUTO DIFFon 09-29-2022 BASO # 0.1 103/ul Normal 0.0-0.[address] [facility] Comment on above: Performed By: #### B MP, CMREP, LIPID #### [facility] [address] [place] [address] Dr. Jeimy Tenorio Basophils/100 WBC (Bld) 1.2 % Normal 0.2-2.[address] [facility] Comment on above: Performed By: #### B MP, CMREP, LIPID #### [facility] [address] [place] [address] Dr. Jeimy Tenorio EO # 0.3 103/ul Normal 0.0-0.[address] [facility] Comment on above: Performed By: #### B MP, CMREP, LIPID #### [facility] [address] [place] [address] Dr. Jeimy Tenorio Eosinophils/100 WBC (Bld) 4.9 % Normal 0.9-7.[address] [facility] Comment on above: Performed By: #### B MP, CMREP, LIPID #### [facility] [address] [place] [address] Dr. Jeimy Tenorio Erythrocyte distribution width (RBC) [Ratio] 13.2 % Normal 11.0-15.[address] [facility] Comment on above: Performed By: #### B MP, CMREP, LIPID #### [facility] [address] [place] [address] Dr. Jeimy Tenorio Hematocrit (Bld) [Volume fraction] 42.3 % Normal 42.0-54.[address] [facility] Comment on above: Performed By: #### B MP, CMREP, LIPID #### [facility] [address] [place] [address] Dr. Jeimy Tenorio Hemoglobin (Bld) [Mass/Vol] 13.8 g/dL Critically low 14.0-18.[address] [facility] Comment on above: Performed By: #### B MP, CMREP, LIPID #### [facility] [address] [place] [address] Dr. Jeimy Tenorio IG # 0.02 10e3/ul Normal 0.00-0.[address] [facility] Comment on above: Performed By: #### B MP, CMREP, LIPID #### [facility] [address] [place] [address] Dr. Jeimy Tenorio IG % 0.3 % Normal 0.0-0.[address] [facility] Comment on above: Performed By: #### B MP, CMREP, LIPID #### [facility] [address] [place] [address] Dr. Jeimy Tenorio LYMPH # 1.3 103/ul Normal 1.2-3.8 [facility] Comment on above: Performed By: #### B MP, CMREP, LIPID #### [facility] [address] [place] [address] Dr. Jeimy Tenorio Lymphocytes/100 WBC (Bld) 19.5 % Critically low 20.5-60.0 [facility] Comment on above: Performed By: #### B MP, CMREP, LIPID #### [facility] [address] [place] [address] Dr. Jeimy Tenorio MANUAL DIFF REQ NO Normal [facility] Comment on above: Performed By: #### B MP, CMREP, LIPID #### [facility] [address] [address] [address] Jeimy Tenorio MCH (RBC) [Entitic mass] 32.9 pg Normal 25.9-34.0 [facility] Comment on above: Performed By: #### B MP, CMREP, LIPID #### [facility] [address] [place] [address] Dr. Jeimy Tenorio MCHC (RBC) [Mass/Vol] 32.6 g/dL Normal 29.9-35.2 [facility] Comment on above: Performed By: #### B MP, CMREP, LIPID #### [facility] [address] [place] [address] Dr. Jeimy Tenorio MCV (RBC) [Entitic vol] 100.7 fL Critically high 80.0-94.[address] [facility] Comment on above: Performed By: #### B MP, CMREP, LIPID #### [facility] [address] [place] [address] Dr. Jeimy Tenorio MONO # 0.7 103/ul Normal 0.3-0.8 [facility] Comment on above: Performed By: #### B MP, CMREP, LIPID #### [facility] [address] [place] [address] Dr. Jeimy Tenorio Monocytes/100 WBC (Bld) 9.9 % Normal 1.7-12.[address] [facility] Comment on above: Performed By: #### B MP, CMREP, LIPID #### [facility] [address] [place] [address] Dr. Jeimy Tenorio NEUT # 4.3 103/ul Normal 1.4-6.5 [facility] Comment on above: Performed By: #### B MP, CMREP, LIPID #### [facility] [address] [place] [address] Dr. Jeimy Tenorio Neutrophils/100 WBC (Bld) 64.2 % Normal 43.0-75.0 [facility] Comment on above: Performed By: #### B MP, CMREP, LIPID #### [facility] [address] [place] [address] Dr. Jeimy Tenorio Platelet mean volume (Bld) [Entitic vol] 10.4 fL Normal 9.5-13.[address] [facility] Comment on above: Performed By: #### B MP, CMREP, LIPID #### [facility] [address] [place] [address] Dr. Jeimy Tenorio PLT 209 103/ul Normal 150-450 [facility] Comment on above: Performed By: #### B MP, CMREP, LIPID #### [facility] [address] [place] [address] Dr. Jeimy Tenorio RBC 4.20 106/ul Critically low 4.70-6.10 [facility] Comment on above: Performed By: #### B MP, CMREP, LIPID #### [facility] [address] [place] [address] Dr. Jeimy Tenorio WBC 6.7 103/ul Normal 4.0-11.[address] [facility] [facility] Comment on above: Performed By: #### B MP, CMREP, LIPID #### [facility] [address] [place] [address] Dr. Jeimy Tenorio DILANTINon 09-29-2022 Phenytoin [Mass/Vol] 23.7 ug/mL Critically high 10.0-20.[address] [facility] Comment on above: Performed By: #### C BC #### [facility] [address] [place] [address] Dr. Jeimy Tenorio GLYCOHEMOGLOBIN A1Con 2021 ADA RECOMMENDATION SEE BELOW Normal [facility] Comment on above: Result Comment: ADA RECOMMENDED LIMIT 4.0 - 6.0 ADA THERAPEUTIC TARGET < 7.0 ACTION SUGGESTED > 7.0 Performed By: #### A 1C #### [facility] [address] [place] [address] Dr. Jeimy Tenorio Glucose [Mass/Vol] 105 mg/dL Normal [facility] Comment on above: Performed By: #### A 1C #### [facility] [address] [place] [place] [address] Dr. Jeimy Tenorio HbA1c (Bld) [Mass fraction] 5.3 % Normal 4.5-6.[address] [facility] Comment on above: Performed By: #### A 1C #### [facility] [address] [address] [address] Jeimy Tenorio LIPID PROFILEon 09-29-2022 CHOL-HDL RATIO NORM SEE BELOW Normal [facility] Comment on above: Result Comment: 3.3 - 4.4 LOW RISK 4.4 - 7.1 AVERAGE RISK 7.1 - 11.0 MODERATE RISK >11.0 HIGH RISK Performed By: #### B MP, CMREP, LIPID #### [facility] [address] [address] [address] Jeimy Tenorio Cholesterol [Mass/Vol] 178 mg/dL Normal <=[address] [facility] Comment on above: Performed By: #### B MP, CMREP, LIPID #### [facility] [address] [address] [address] Jeimy Tenorio Cholesterol in HDL [Mass/Vol] 56 mg/dL Normal 40-[address] [facility] Comment on above: Performed By: #### B MP, CMREP, LIPID #### [facility] [address] [place] [address] Dr. Jeimy Tenorio Cholesterol in LDL [Mass/Vol] 86.8 mg/dL Normal [facility] Comment on above: Performed By: #### B MP, CMREP, LIPID #### [facility] [address] [place] [address] Dr. Jeimy Tenorio Cholesterol.total/Ch olesterol in HDL [Mass ratio] 3.2 {ratio} Normal [facility] Comment on above: Performed By: #### B MP, CMREP, LIPID #### [facility] [address] [place] [address] Dr. Jeimy Tenorio HDL NORMAL > or = 60 mg/dl - LO W CARDIOVASCULAR RISK <40 mg/dl - HIGH CARDIOVASCULAR RISK Normal [facility] Comment on above: Performed By: #### B MP, CMREP, LIPID #### [facility] [address] [place] [address] Dr. Jiemy Tenorio LDL CALC NORMAL SEE BELOW Normal [facility] Comment on above: Result Comment: <100 mg/dl OPTIMAL 100 - 129 mg/dl NEAR OR ABOVE OPTIMAL 130 - 159 mg/dl BORDERLINE HIGH 160 - 189 mg/dl HIGH >190 mg/dl VERY HIGH Performed By: #### B MP, CMREP, LIPID #### [facility] [address] [place] [address] Dr. Jeimy Tenorio Triglyceride [Mass/Vol] 176 mg/dL Critically high <=[address] [facility] Comment on above: Performed By: #### B MP, CMREP, LIPID #### [facility] [address] [place] [address] Dr. Jeimy Tenorio VLDL CALC 35.2 mg/dL Normal [facility] Comment on above: Performed By: #### B MP, CMREP, LIPID #### [facility] [address] [place] [address] Dr. Jeimy Tenorio LIVER PROFILEon 09-29-2022 Albumin [Mass/Vol] 3.5 g/dL Normal 3.4-5.0 [facility] Comment on above: Performed By: #### B MP, CMREP, LIPID #### [facility] [address] [place] [address] Dr. Jeimy Tenorio Albumin/Globulin [Mass ratio] 0.8 {ratio} Normal [facility] Comment on above: Performed By: #### B MP, CMREP, LIPID #### [facility] [address] [place] [address] Dr. Jeimy Tenorio ALP [Catalytic activity/Vol] 139 U/L Critically high 46-[address] [facility] Comment on above: Performed By: #### B MP, CMREP, LIPID #### [facility] [address] [place] [address] Dr. Jeimy Tenorio ALT [Catalytic activity/Vol] 25 U/L Normal 16-[address] [facility] Comment on above: Performed By: #### B MP, CMREP, LIPID #### [facility] [address] [place] [address] Dr. Jeimy Tenorio AST [Catalytic activity/Vol] 23 U/L Normal 15-[address] [facility] Comment on above: Performed By: #### B MP, CMREP, LIPID #### [facility] [address] [place] [address] Dr. Jeimy Tenorio BILI, CONJUGATED 0.0 mg/dL Normal 0.0-0.2 [facility] Comment on above: Performed By: #### B MP, CMREP, LIPID #### [facility] [address] [place] [address] Dr. Jeimy Tenorio Bilirubin [Mass/Vol] 0.3 mg/dL Normal 0.2-1.[address] [facility] Comment on above: Performed By: #### B MP, CMREP, LIPID #### [facility] [address] [place] [address] Dr. Jeimy Tenorio Globulin (S) [Mass/Vol] 4.3 g/dL Normal [facility] Comment on above: Performed By: #### B MP, CMREP, LIPID #### [facility] [address] [place] [address] Dr. Jeimy Tenorio Protein [Mass/Vol] 7.8 g/dL Normal 6.4-8.2 [facility] Comment on above: Performed By: #### B MP, CMREP, LIPID #### [facility] [address] [place] [address] Dr. Jeimy Tenorio PROF CHEM 8 (BAS METB)on Anion gap [Moles/Vol] 8.7 mmol/L Normal [facility] Comment on above: Performed By: #### B MP, CMREP, LIPID #### [facility] [address] [place] [address] Dr. Jeimy Tenorio Calcium [Mass/Vol] 8.7 mg/dL Normal 8.5-10.1 [facility] Comment on above: Performed By: #### B MP, CMREP, LIPID #### [facility] [address] [place] [address] Dr. Jeimy Tenorio Chloride [Moles/Vol] 104 mmol/L Normal 98-107 [facility] Comment on above: Performed By: #### B MP, CMREP, LIPID #### [facility] [address] [place] [address] Dr. Jeimy Tenorio CO2 [Moles/Vol] 29.8 mmol/L Normal 21.0-32.0 [facility] Comment on above: Performed By: #### B MP, CMREP, LIPID #### [facility] [address] [address] [address] Jeimy Tenorio Creatinine [Mass/Vol] 0.76 mg/dL Normal 0.70-1.[address] [facility] Comment on above: Performed By: #### B MP, CMREP, LIPID #### [facility] [address] [address] [address] Jeimy Tenorio EGFR-AF VENEZUELAN >60 Normal >=60 [facility] Comment on above: Performed By: #### B MP, CMREP, LIPID #### [facility] [address] [place] [address] Dr. Jeimy Tenorio EGFR-NON AF VENEZUELAN >60 Normal >=[address] [facility] Comment on above: Performed By: #### B MP, CMREP, LIPID #### [facility] [address] [place] [address] Dr. Jeimy Tenorio Glucose [Mass/Vol] 95 mg/dL Normal 74-106 [facility] Comment on above: Performed By: #### B MP, CMREP, LIPID #### [facility] [address] [place] [address] Dr. Jeimy Tenorio Potassium [Moles/Vol] 4.5 mmol/L Normal 3.5-5.[address] [facility] Comment on above: Performed By: #### B MP, CMREP, LIPID #### [facility] [address] [place] [address] Dr. Jeimy Teonrio Sodium [Moles/Vol] 138 mmol/L Normal 136-145 [facility] Comment on above: Performed By: #### B MP, CMREP, LIPID #### [facility] [address] [place] [address] Dr. Jeimy Tenorio Urea nitrogen [Mass/Vol] 18.0 mg/dL Normal 7.0-18.[address] [facility] Comment on above: Performed By: #### B MP, CMREP, LIPID #### [facility] [address] [place] [address] Dr. Jeimy Tenorio Urea nitrogen/Creatinine [Mass ratio] 23.7 mg/mg Normal [facility] Comment on above: Performed By: #### B MP, CMREP, LIPID #### [facility] [address] [place] [address] Dr. Jeimy Tenorio TSHon 09-29-2022 TSH 1.694 uIU/mL Normal 0.358-3.740 [facility] Comment on above: Performed By: #### B MP, CMREP, LIPID #### [facility] [address] [place] [address] Dr. Jeimy Tenorio CARDIAC SAWYER 3-6on 2 CK [Catalytic activity/Vol] 47 U/L Normal 39-308 [facility] Comment on above: Performed By: #### B MP, CMREP, LIPID #### [facility] [address] [place] [address] Dr. Jeimy Tenorio CK.MB [Mass/Vol] 0.77 ng/mL Normal <=3.60 [facility] Comment on above: Performed By: #### B MP, CMREP, LIPID #### [facility] [address] [place] [address] Dr. Jeimy Tenorio HSTROP 6.9 pg/mL Normal 4.0-76.1 [facility] Comment on above: Result Comment: CUT- OFF POINTS HAVE BEEN ESTABLISHED BASED ON THE FOURTH UNIVERSAL DEFINITIONS OF MYOCARDIAL INFARCTION. THE UPPER REFERENCE LIMIT (URL) OF TROPONIN, DEFINED THE 99TH PERCENTILE OF cTnI DISTRIBUTION IN A REFERENCE POPULATION, HAS BEEN CONFIRMED THE DECISION THRESHOLD FOR LA DIAGNOSIS. Performed By: #### B MP, CMREP, LIPID #### [facility] [address] [place] [address] Dr. Jeimy Tenorio CK [Catalytic activity/Vol] 53 U/L Normal 39-308 [facility] Comment on above: Performed By: #### C BC #### [facility] [address] [place] [address] Dr. Jeimy Tenorio CK.MB [Mass/Vol] 0.80 ng/mL Normal <=3.60 [facility] Comment on above: Performed By: #### C BC #### [facility] [address] [place] [address] Dr. Jeimy Tenorio HSTROP 6.2 pg/mL Normal 4.0-76.1 [facility] Comment on above: Result Comment: CUT- OFF POINTS HAVE BEEN ESTABLISHED BASED ON THE FOURTH UNIVERSAL DEFINITIONS OF MYOCARDIAL INFARCTION. THE UPPER REFERENCE LIMIT (URL) OF TROPONIN, DEFINED THE 99TH PERCENTILE OF cTnI DISTRIBUTION IN A REFERENCE POPULATION, HAS BEEN CONFIRMED THE DECISION THRESHOLD FOR LA DIAGNOSIS. Performed By: #### C BC #### [facility] [address] [place] [address] Dr. Jeimy Tenorio CBC AUTO DIFFon 06-12-2022 BASO # 0.1 103/ul Normal 0.0-0.[address] [facility] Comment on above: Performed By: #### C BC #### [facility] [address] [place] [address] Dr. Jeimy Tenorio Basophils/100 WBC (Bld) 0.9 % Normal 0.2-2.[address] [facility] Comment on above: Performed By: #### C BC #### [facility] [address] [place] [address] Dr. Jeimy Tenorio EO # 0.3 103/ul Normal 0.0-0.7 [facility] Comment on above: Performed By: #### C BC #### [facility] [address] [place] [address] Dr. Jeimy Tenorio Eosinophils/100 WBC (Bld) 5.2 % Normal 0.9-7.0 [facility] Comment on above: Performed By: #### C BC #### [facility] [address] [place] [address] Dr. Jeimy Tenorio Erythrocyte distribution width (RBC) [Ratio] 13.0 % Normal 11.0-15.0 [facility] Comment on above: Performed By: #### C BC #### [facility] [address] [place] [address] Dr. Jeimy Tenorio Hematocrit (Bld) [Volume fraction] 39.1 % Critically low 42.0-54.[address] [facility] Comment on above: Performed By: #### C BC #### [facility] [address] [place] [address] Dr. Jeimy Tenorio Hemoglobin (Bld) [Mass/Vol] 13.2 g/dL Critically low 14.0-18.[address] [facility] Comment on above: Performed By: #### C BC #### [facility] [address] [place] [address] Dr. Jeimy Tenorio IG # 0.03 10e3/ul Normal 0.00-0.[address] [facility] Comment on above: Performed By: #### C BC #### [facility] [address] [place] [address] Dr. Jeimy Tenorio IG % 0.5 % Normal 0.0-0.[address] [facility] Comment on above: Performed By: #### C BC #### [facility] [address] [place] [address] Dr. Jeimy Tenorio LYMPH # 1.7 103/ul Normal 1.2-3.8 [facility] Comment on above: Performed By: #### C BC #### [facility] [address] [place] [address] Dr. Jeimy Tenorio Lymphocytes/100 WBC (Bld) 26.0 % Normal 20.5-60.[address] [facility] Comment on above: Performed By: #### C BC #### [facility] [address] [place] [address] Dr. Jeimy Tenorio MANUAL DIFF REQ NO Normal [facility] Comment on above: Performed By: #### C BC #### [facility] [address] [place] [address] Dr. Jeimy Tenorio MCH (RBC) [Entitic mass] 33.2 pg Normal 25.9-34.0 [facility] Comment on above: Performed By: #### C BC #### [facility] [address] [place] [address] Dr. Jeimy Tenorio MCHC (RBC) [Mass/Vol] 33.8 g/dL Normal 29.9-35.2 [facility] Comment on above: Performed By: #### C BC #### [facility] [address] [address] [address] Jeimy Tenorio MCV (RBC) [Entitic vol] 98.5 fL Critically high 80.0-94.[address] [facility] Comment on above: Performed By: #### C BC #### [facility] [address] [place] [address] Dr. Jeimy Tenorio MONO # 0.8 103/ul Normal 0.3-0.8 [facility] Comment on above: Performed By: #### C BC #### [facility] [address] [place] [address] Dr. Jeimy Tenorio Monocytes/100 WBC (Bld) 12.2 % Critically high 1.7-12.[address] [facility] Comment on above: Performed By: #### C BC #### [facility] [address] [place] [address] Dr. Jeimy Tenorio NEUT # 3.6 103/ul Normal 1.4-6.[address] [facility] Comment on above: Performed By: #### C BC #### [facility] [address] [place] [address] Dr. Jeimy Tenorio Neutrophils/100 WBC (Bld) 55.2 % Normal 43.0-75.0 [facility] Comment on above: Performed By: #### C BC #### [facility] [address] [place] [address] Dr. Jeimy Tenorio Platelet mean volume (Bld) [Entitic vol] 9.9 fL Normal 9.5-13.5 [facility] Comment on above: Performed By: #### C BC #### [facility] [address] [place] [address] Dr. Jeimy Tenorio PLT 174 103/ul Normal 150-450 [facility] Comment on above: Performed By: #### C BC #### [facility] [address] [place], [place] [id number] Dr. Jeimy Tenorio RBC 3.97 106/ul Critically low 4.70-6.10 [facility] Comment on above: Performed By: #### C BC #### [facility] [address] [place] [address] Dr. Jeimy Tenorio WBC 6.5 103/ul Normal 4.0-11.0 [facility] Comment on above: Performed By: #### C #### [facility] [address] [place], [place] [address] Dr. Jeimy Tenorio CTA CHEST WO W CONon 022 CTA CHEST WO W CON EXAM: [...] as clinically indicated. Electronically authenticated by: MAMIE SAID Date: 2022-06-12 00:21 Normal [facility] Covid-19 PCR (CVDTB)on 05-22 SARS-CoV-2 (COVID-19) RNA ALEX+probe Ql (Unsp spec) Not detected Normal NOT DETECTED [facility] Comment on above: Result Comment: When [...] for this test is supported by the Travel Freight [employer] Passenger Agent of Health and Human Service's declaration that [...] By: #### B MP, CMREP, LIPID #### [facility] [address] [place] [address] Dr. Jeimy Tenorio ER URINE PROFILEon 2 Bilirubin Ql (U) Negative Normal NEGATIVE [facility] Comment on above: Performed By: #### E RUR #### [facility] [address] [place] [address] Dr. Jeimy Tenorio Clarity (U) CLEAR Normal CLEAR [facility] Comment on above: Performed By: #### E RUR #### [facility] [address] [place] [address] Dr. Jeimy Tenorio Color (U) LT. YELLOW Normal YELLOW [facility] Comment on above: Performed By: #### E RUR #### [facility] [address] [place] [address] Dr. Jeimy Tenorio ERUAHD A micrscopic examination will be performed if indicated. Normal [facility] Comment on above: Performed By: #### E RUR #### [facility] [address] [place] [address] Dr. Jeimy Tenorio Glucose Ql (U) Negative Normal NEGATIVE [facility] Comment on above: Performed By: #### E RUR #### [facility] [address] [place] [address] Dr. Jeimy Tenorio Hemoglobin Ql (U) Negative Normal NEGATIVE [facility] Comment on above: Performed By: #### E RUR #### [facility] [address] [place] [address] Dr. Jeimy Tenorio Ketones Ql (U) TRACE Abnormal NEGATIVE [facility] Comment on above: Performed By: #### E RUR #### [facility] [address] [place] [address] Dr. Jeimy Tenorio LEUKOCYTES Negative Normal NEGATIVE [facility] Comment on above: Performed By: #### E RUR #### [facility] [address] [place] [address] Dr. Jeimy Tenorio Nitrite Ql (U) Negative Normal NEGATIVE [facility] Comment on above: Performed By: #### E RUR #### [facility] [address] [place] [address] Dr. Jeimy Tenorio pH (U) 5.5 [pH] Normal 5-[address] [facility] Comment on above: Performed By: #### E RUR #### [facility] [address] [place] [address] Dr. Jeimy Tenorio SPEC GRAVITY 1.010 Normal 1.005-<=1.025 [facility] Comment on above: Performed By: #### E RUR #### [facility] [address] [place] [address] Dr. Jeimy Tenorio UA PROTEIN Negative Normal NEGATIVE/ TRACE [facility] Comment on above: Performed By: #### E RUR #### [facility] [address] [place] [address] Dr. Jeimy Tenorio UR MICRO IND NOT INDICATED Normal [facility] Comment on above: Performed By: #### E RUR #### [facility] [address] [place] [address] Dr. Jeimy Tenorio Urobilinogen Qn (U) 0.2 {Raphael'U}/dL Normal 0.2 - 1. [address] [facility] Comment on above: Performed By: #### E RUR #### [facility] [address] [place] [address] Dr. Jeimy Tenorio GLYCOHEMOGLOBIN A1Con 2021 ADA RECOMMENDATION SEE BELOW Normal [facility] Comment on above: Result Comment: ADA RECOMMENDED LIMIT 4.0 - 6.0 ADA THERAPEUTIC TARGET < 7.0 ACTION SUGGESTED > 7.0 Performed By: #### C BC #### [facility] [address] [address] [address] Jeimy Tenorio Glucose [Mass/Vol] 103 mg/dL Normal [facility] Comment on above: Performed By: #### C BC #### [facility] [address] [address] [address] Jeimy Tenorio HbA1c (Bld) [Mass fraction] 5.2 % Normal 4.5-6.[address] [facility] Comment on above: Performed By: #### C BC #### [facility] [address] [place] [address] Dr. Jeimy Tenorio LIPID PROFILEon 06-12-2022 CHOL-HDL RATIO NORM SEE BELOW Normal [facility] Comment on above: Result Comment: 3.3 - 4.4 LOW RISK 4.4 - 7.1 AVERAGE RISK 7.1 - 11.0 MODERATE RISK >11.0 HIGH RISK Performed By: #### B MP, CMREP, LIPID #### [facility] [address] [place] [address] Dr. Jeimy Tenorio Cholesterol [Mass/Vol] 142 mg/dL Normal <=[address] [facility] Comment on above: Performed By: #### B MP, CMREP, LIPID #### [facility] [address] [address] [address] Jeimy Tenorio Cholesterol in HDL [Mass/Vol] 49 mg/dL Normal 40-[address] [facility] Comment on above: Performed By: #### B MP, CMREP, LIPID #### [facility] [address] [address] [address] Jeimy Tenorio Cholesterol in LDL [Mass/Vol] 64.6 mg/dL Normal [facility] Comment on above: Performed By: #### B MP, CMREP, LIPID #### [facility] [address] [place] [address] Dr. Jeimy Tenorio Cholesterol.total/Ch olesterol in HDL [Mass ratio] 2.9 {ratio} Normal [facility] Comment on above: Performed By: #### B MP, CMREP, LIPID #### [facility] [address] [address] [address] Jeimy Tenorio HDL NORMAL > or = 60 mg/dl - LO W CARDIOVASCULAR RISK <40 mg/dl - HIGH CARDIOVASCULAR RISK Normal [facility] Comment on above: Performed By: #### B MP, CMREP, LIPID #### [facility] [address] [address] [address] Jeimy Tenorio LDL CALC NORMAL SEE BELOW Normal [facility] Comment on above: Result Comment: <100 mg/dl OPTIMAL 100 - 129 mg/dl NEAR OR ABOVE OPTIMAL 130 - 159 mg/dl BORDERLINE HIGH 160 - 189 mg/dl HIGH >190 mg/dl VERY HIGH Performed By: #### B MP, CMREP, LIPID #### [facility] [address] [place] [address] Dr. Jeimy Tenorio Triglyceride [Mass/Vol] 142 mg/dL Normal <=[address] [facility] Comment on above: Performed By: #### B MP, CMREP, LIPID #### [facility] [address] [address] [address] Jeimy Tenorio VLDL CALC 28.4 mg/dL Normal [facility] Comment on above: Performed By: #### B MP, CMREP, LIPID #### [facility] [address] [address] [address] Jeimy Tenorio PROF CHEM 8 (BAS METB)on Anion gap [Moles/Vol] 10.1 mmol/L Normal [facility] Comment on above: Performed By: #### B MP, CMREP, LIPID #### [facility] [address] [address] [address] Jeimy Tenorio Calcium [Mass/Vol] 8.0 mg/dL Critically low 8.5-10.1 [facility] Comment on above: Performed By: #### B MP, CMREP, LIPID #### [facility] [address] [address] [address] Jeimy Tenorio Chloride [Moles/Vol] 104 mmol/L Normal 98-[address] [facility] Comment on above: Performed By: #### B MP, CMREP, LIPID #### [facility] [address] [address] [address] Jeimy Tenorio CO2 [Moles/Vol] 27.0 mmol/L Normal 21.0-32.0 [facility] Comment on above: Performed By: #### B MP, CMREP, LIPID #### [facility] [address] [place] [address] Dr. Jeimy Tenorio Creatinine [Mass/Vol] 0.79 mg/dL Normal 0.70-1.[address] [facility] Comment on above: Performed By: #### B MP, CMREP, LIPID #### [facility] [address] [place] [address] Dr. Jeimy Tenorio EGFR-AF VENEZUELAN >60 Normal >=60 [facility] Comment on above: Performed By: #### B MP, CMREP, LIPID #### [facility] [address] [place] [address] Dr. Jeimy Tenorio EGFR-NON AF VENEZUELAN >60 Normal >=[address] [facility] Comment on above: Performed By: #### B MP, CMREP, LIPID #### [facility] [address] [place] [address] Dr. Jeimy Tenorio Glucose [Mass/Vol] 101 mg/dL Normal 74-106 [facility] Comment on above: Performed By: #### B MP, CMREP, LIPID #### [facility] [address] [place] [address] Dr. Jeimy Tenorio Potassium [Moles/Vol] 4.1 mmol/L Normal 3.5-5.[address] [facility] Comment on above: Performed By: #### B MP, CMREP, LIPID #### [facility] [address] [place] [address] Dr. Jeimy Tenorio Sodium [Moles/Vol] 137 mmol/L Normal 136-145 [facility] Comment on above: Performed By: #### B MP, CMREP, LIPID #### [facility] [address] [place] [address] Dr. Jeimy Tenorio Urea nitrogen [Mass/Vol] 15.0 mg/dL Normal 7.0-18.0 [facility] Comment on above: Performed By: #### B MP, CMREP, LIPID #### [facility] [address] [place] [address] Dr. Jeimy Tenorio Urea nitrogen/Creatinine [Mass ratio] 19.0 mg/mg Normal [facility] Comment on above: Performed By: #### B MP, CMREP, LIPID #### [facility] [address] [address] [address] Jeimy Tenorio CARDIAC SAWYER ADMITon 022 CK [Catalytic activity/Vol] 50 U/L Normal 39-[address] [facility] Comment on above: Performed By: #### C BC #### [facility] [address] [place] [address] Dr. Jeimy Tenorio CK.MB [Mass/Vol] 0.80 ng/mL Normal <=3.60 [facility] Comment on above: Performed By: #### C BC #### [facility] [address] [place] [address] Dr. Jeimy Tenorio HSTROP 5.2 pg/mL Normal 4.0-76.1 [facility] Comment on above: Result Comment: CUT- OFF POINTS HAVE BEEN ESTABLISHED BASED ON THE FOURTH UNIVERSAL DEFINITIONS OF MYOCARDIAL INFARCTION. THE UPPER REFERENCE LIMIT (URL) OF TROPONIN, DEFINED THE 99TH PERCENTILE OF cTnI DISTRIBUTION IN A REFERENCE POPULATION, HAS BEEN CONFIRMED THE DECISION THRESHOLD FOR LA DIAGNOSIS. Performed By: #### C BC #### [facility] [address] [place] [address] Dr. Jeimy Tenorio MAGALIE 41 ng/mL Normal 16-96 [facility] Comment on above: Performed By: #### C BC #### [facility] [address] [place] [place] [address] Dr. Jeimy Tenorio CBC AUTO DIFFon 06-11-2022 BASO # 0.0 103/ul Normal 0.0-0.[address] [facility] Comment on above: Performed By: #### C BC #### [facility] [address] [place] [address] Dr. Jeimy Tenorio Basophils/100 WBC (Bld) 0.6 % Normal 0.2-2.[address] [facility] Comment on above: Performed By: #### C BC #### [facility] [address] [place] [address] Dr. Jeimy Tenorio EO # 0.4 103/ul Normal 0.0-0.[address] [facility] Comment on above: Performed By: #### C BC #### [facility] [address] [place] [place] [address] Dr. Jeimy Tenorio Eosinophils/100 WBC (Bld) 4.9 % Normal 0.9-7.[address] [facility] Comment on above: Performed By: #### C BC #### [facility] [address] [place] [address] Dr. Jeimy Tenorio Erythrocyte distribution width (RBC) [Ratio] 13.1 % Normal 11.0-15.[address] [facility] Comment on above: Performed By: #### C BC #### [facility] [address] [place] [address] Dr. Jeimy Tenorio Hematocrit (Bld) [Volume fraction] 38.1 % Critically low 42.0-54.[address] [facility] Comment on above: Performed By: #### C BC #### [facility] [address] [place] [address] Dr. Jeimy Tenorio Hemoglobin (Bld) [Mass/Vol] 13.0 g/dL Critically low 14.0-18.[address] [facility] Comment on above: Performed By: #### C BC #### [facility] [address] [place] [address] Dr. Jeimy Tenorio IG # 0.02 10e3/ul Normal 0.00-0.03 [facility] Comment on above: Performed By: #### C BC #### [facility] [address] [place] [address] Dr. Jeimy Tenorio IG % 0.3 % Normal 0.0-0.[address] [facility] Comment on above: Performed By: #### C BC #### [facility] [address] [place] [address] Dr. Jeimy Tenorio LYMPH # 1.7 103/ul Normal 1.2-3.[address] [facility] Comment on above: Performed By: #### C BC #### [facility] [address] [place] [address] Dr. Jeimy Tenorio Lymphocytes/100 WBC (Bld) 22.9 % Normal 20.5-60.[address] [facility] Comment on above: Performed By: #### C BC #### [facility] [address] [place] [address] Dr. Jeimy Tenorio MANUAL DIFF REQ NO Normal [facility] Comment on above: Performed By: #### C BC #### [facility] [address] [place] [address] Dr. Jeimy Tenorio MCH (RBC) [Entitic mass] 33.5 pg Normal 25.9-34.[address] [facility] Comment on above: Performed By: #### C BC #### [facility] [address] [place] [address] Dr. Jeimy Tenorio MCHC (RBC) [Mass/Vol] 34.1 g/dL Normal 29.9-35.[address] [facility] Comment on above: Performed By: #### C BC #### [facility] [address] [place] [address] Dr. Jeimy Tenorio MCV (RBC) [Entitic vol] 98.2 fL Critically high 80.0-94.[address] [facility] Comment on above: Performed By: #### C BC #### [facility] [address] [place] [address] Dr. Jeimy Tenorio MONO # 0.8 103/ul Normal 0.3-0.[address] [facility] Comment on above: Performed By: #### C BC #### [facility] [address] [place] [address] Dr. Jeimy Tenorio Monocytes/100 WBC (Bld) 11.5 % Normal 1.7-12.[address] [facility] Comment on above: Performed By: #### C BC #### [facility] [address] [place] [address] Dr. Jeimy Tenorio NEUT # 4.3 103/ul Normal 1.4-6.5 [facility] Comment on above: Performed By: #### C BC #### [facility] [address] [address] [address] Jeimy Tenorio Neutrophils/100 WBC (Bld) 59.8 % Normal 43.0-75.[address] [facility] Comment on above: Performed By: #### C BC #### [facility] [address] [address] [address] Jeimy Tenorio Platelet mean volume (Bld) [Entitic vol] 9.8 fL Normal 9.5-13.[address] [facility] Comment on above: Performed By: #### C BC #### [facility] [address] [address] [address] Jeimy Tenorio PLT 181 103/ul Normal 150-[address] [facility] Comment on above: Performed By: #### C BC #### [facility] [address] [address] [address] Jeimy Tenorio RBC 3.88 106/ul Critically low 4.70-6.10 [facility] Comment on above: Performed By: #### C BC #### [facility] [address] [address] [address] Jeimy Tenorio WBC 7.2 103/ul Normal 4.0-11.[address] [facility] Comment on above: Performed By: #### C BC #### [facility] [id number] Jeimy Tenorio D-DIMERon 06-11-2022 D-DIMER 0.63 mg/L FEU Critically high <=0.59 [facility] Comment on above: Performed By: #### D DIM #### [facility] [address] [address] [address] Jeimy Tenorio D-DIMER COMMENTS SEE BELOW Normal [facility] Comment on above: Result Comment: Incr [...] hospitalization. Performed By: #### D DIM #### [facility] [address] [place] [address] Dr. Jeimy Tenorio PROF 14(COMP METB)on 022 Albumin [Mass/Vol] 3.3 g/dL Critically low 3.4-5.0 [facility] Comment on above: Performed By: #### C BC #### [facility] [address] [place] [address] Dr. Jeimy Tenorio Albumin/Globulin [Mass ratio] 0.8 {ratio} Normal [facility] Comment on above: Performed By: #### C BC #### [facility] [address] [place] [address] Dr. Jeimy Tenorio ALP [Catalytic activity/Vol] 160 U/L Critically high 46-[address] [facility] Comment on above: Performed By: #### C BC #### [facility] [address] [place] [address] Dr. Jeimy Tenorio ALT [Catalytic activity/Vol] 26 U/L Normal 16-[address] [facility] Comment on above: Performed By: #### C BC #### [facility] [address] [place] [address] Dr. Jeimy Tenorio Anion gap [Moles/Vol] 10.4 mmol/L Normal [facility] Comment on above: Performed By: #### C BC #### [facility] [address] [place] [address] Dr. Jeimy Tenorio AST [Catalytic activity/Vol] 16 U/L Normal 15-[address] [facility] Comment on above: Performed By: #### C BC #### [facility] [address] [place] [address] Dr. Jeimy Tenorio Bilirubin [Mass/Vol] 0.2 mg/dL Normal 0.2-1.[address] [facility] Comment on above: Performed By: #### C BC #### [facility] [address] [place] [address] Dr. Jeimy Tenorio Calcium [Mass/Vol] 8.2 mg/dL Critically low 8.5-10.1 [facility] Comment on above: Performed By: #### C BC #### [facility] [address] [place] [address] Dr. Jeimy Tenorio Chloride [Moles/Vol] 105 mmol/L Normal 98-[address] [facility] Comment on above: Performed By: #### C BC #### [facility] [address] [address] [address] Jeimy Tenorio CO2 [Moles/Vol] 26.5 mmol/L Normal 21.0-32.0 [facility] Comment on above: Performed By: #### C BC #### [facility] [address] [place] [address] Dr. Jeimy Tenorio Creatinine [Mass/Vol] 0.96 mg/dL Normal 0.70-1.[address] [facility] Comment on above: Performed By: #### C BC #### [facility] [address] [place] [address] Dr. Jeimy Tenorio EGFR-AF VENEZUELAN >60 Normal >=60 [facility] Comment on above: Performed By: #### C BC #### [facility] [address] [place] [address] Dr. Jeimy Tenorio EGFR-NON AF VENEZUELAN >60 Normal >=[address] [facility] Comment on above: Performed By: #### C BC #### [facility] [address] [place] [address] Dr. Jeimy Tenorio Globulin (S) [Mass/Vol] 4.0 g/dL Normal [facility] Comment on above: Performed By: #### C BC #### [facility] [address] [place] [address] Dr. Jeimy Tenorio Glucose [Mass/Vol] 140 mg/dL Critically high 74-[address] [facility] Comment on above: Performed By: #### C BC #### [facility] [address] [place] [address] Dr. Jeimy Tenorio Potassium [Moles/Vol] 3.9 mmol/L Normal 3.5-5.[address] [facility] Comment on above: Performed By: #### C BC #### [facility] [address] [address] [address] Jeimy Tenorio Protein [Mass/Vol] 7.3 g/dL Normal 6.4-8.2 [facility] Comment on above: Performed By: #### C BC #### [facility] [address] [address] [address] Jeimy Tenorio Sodium [Moles/Vol] 138 mmol/L Normal 136-145 [facility] Comment on above: Performed By: #### C BC #### [facility] [address] [address] [address] Jeimy Tenorio Urea nitrogen [Mass/Vol] 15.0 mg/dL Normal 7.0-18.[address] [facility] Comment on above: Performed By: #### C BC #### [facility] [address] [address] [address] Jeimy Tenorio Urea nitrogen/Creatinine [Mass ratio] 15.6 mg/mg Normal [facility] Comment on above: Performed By: #### C BC #### [facility] [address] [address] [address] Jeimy Tenorio [facility] 10-30-2021 Albumin [Mass/Vol] 4.3 g/dL Normal 3.6-5.1 [facility] Comment on above: Performed By: #### 7 , 207, 20280 #### [facility] [address] Grocery Checker: Yash Campuzano MD Albumin/Globulin [Mass ratio] 1.3 {ratio} Normal 1.0-2.5 [facility] Comment on above: Performed By: #### 7 , 7599, 34541 #### [facility] [address] [employer]cery Checker: Yash Campuzano MD ALP [Catalytic activity/Vol] 152 U/L High 35-144 [facility] Comment on above: Performed By: #### 7 , 7599, 45247 #### [facility] of [address], [address] [place] [address] Grocery Checker: Yash Campuzano MD ALT [Catalytic activity/Vol] 30 U/L Normal 9-46 [facility] Comment on above: Performed By: #### 7 13, 7600, 37220 #### [facility] of [address], [address] [place] [address] [employer]cery Checker: Yash Campuzano MD AST [Catalytic activity/Vol] 26 U/L Normal 10-35 [facility] Comment on above: Performed By: #### 7 13, 0, 38508 #### [facility] [address], [address] [place] [address] Grocery Checker: Yash Campuzano MD Bilirubin [Mass/Vol] 0.4 mg/dL Normal 0.2-1.2 [facility] Comment on above: Performed By: #### 7 13, 7599, 30264 #### [facility] [address], [address] [place] [address] Grocery Checker: Yash Campuzano MD BUN/CREATININE RATIO NOT APPLICABLE Normal 6-22 [facility] Comment on above: Performed By: #### 7 13, 0, 58476 #### [facility] of [address] [address] Grocery Checker: Yash Campuzano MD Calcium [Mass/Vol] 8.8 mg/dL Normal 8.6-10.3 [facility] Comment on above: Performed By: #### 7 13, 7599, 55635 #### [facility] of [address] [address] Grocery Checker: Yash Campuzano MD Chloride [Moles/Vol] 104 mmol/L Normal 98-110 [facility] Comment on above: Performed By: #### 7 13, 7600, 29257 #### [facility] of [address] [address] Gro[employer] Checker: Yash Campuzano MD CO2 [Moles/Vol] 25 mmol/L Normal 20-32 [facility] Comment on above: Performed By: #### 7 13, 0, 92818 #### [facility] [address], [address] [place] [address] Grocery Checker: Yash Campuzano MD Creatinine [Mass/Vol] 0.76 mg/dL Normal 0.70-1.25 [facility] Comment on above: Result Comment: For patients >49 years of age, the reference limit for Creatinine is approximately 13% higher for people identified as -[place]. Performed By: #### 7 13, 7599, 46367 #### [facility] [address], [address] [place] [address] Grocery Checker: Yash Campuzano MD eGFR NON-AFR. VENEZUELAN 95 mL/min/1.73m2 Normal > OR = 60 [facility] Comment on above: Performed By: #### 7 13, 7599, 81636 #### [facility] [address], [address] [place] [address] Grocery Checker: Yash Campuzano MD GFR/1.73 sq M.predicted among blacks MDRD (S/P/Bld) [Vol rate/Area] 110 mL/min/{1.73_m2} Normal > OR = 60 [facility] Comment on above: Performed By: #### 7 13, 7599, 17999 #### [facility] [address], [address] [place] [address] Grocery Checker: Yash Campuzano MD Globulin (S) [Mass/Vol] 3.2 g/dL Normal 1.9-3.7 [facility] Comment on above: Performed By: #### 7 13, 7600, 45707 #### [facility] [address], [address] [place] [address] Grocery Checker: Yash Campuzano MD Glucose [Mass/Vol] 103 mg/dL High 65-99 [facility] Comment on above: Result Comment: Fasting reference interval For someone without known diabetes, a glucose value between 100 and 125 mg/dL is consistent with prediabetes and should be confirmed with a follow-up test. Performed By: #### 7 13, 7600, 58316 #### [facility] of [address], [address] [place] [address] Grocery Checker: Yash Campuzano MD Potassium [Moles/Vol] 4.7 mmol/L Normal 3.5-5.3 [facility] Comment on above: Performed By: #### 7 13, 7600, 94570 #### [facility] of [address], [address] [place] [address] Grocery Checker: Yash Campuzano MD Protein [Mass/Vol] 7.5 g/dL Normal 6.1-8.1 [facility] Comment on above: Performed By: #### 7 13, 7599, 99286 #### [facility] of [address] [address] Grocery Checker: Yash Campuzano MD Sodium [Moles/Vol] 137 mmol/L Normal 135-146 [facility] Comment on above: Performed By: #### 7 13, 7599, 93248 #### [facility] of [address] [address] Grocery Checker: Yash Campuzano MD Urea nitrogen [Mass/Vol] 15 mg/dL Normal 7-25 [facility] Comment on above: Performed By: #### 7 13, 7600, 10144 #### [facility] of [address] [address] Grocery Checker: Yash Campuzano MD LIPID PANEL, [facility] 12-1 Cholesterol [Mass/Vol] 180 mg/dL Normal <200 [facility] Comment on above: Order Comment: FASTI NG:YES FASTING: YES Performed By: #### 7 13, 7600, 54376 #### [facility] of [address] [address] Grocery Checker: Yash Campuzano MD Cholesterol in HDL [Mass/Vol] 50 mg/dL Normal > OR = 40 [facility] Comment on above: Order Comment: FASTI NG:YES FASTING: YES Performed By: #### 7 13, 760, 49548 #### [facility] [address] [address] Grocery Checker: Yash Campuzano MD Cholesterol in LDL [Mass/Vol] [...] equation in the estimation of LDL-C. Gennaro SS et al. KO. 2013;310(60): 0737-6665 (http://education.[employer]/faq/AIH797) Performed By: #### 7 , 988, 74768 #### [facility] [address] [address] Grocery Checker: Yash Campuzano MD Cholesterol.total/Ch olesterol in HDL [Mass ratio] 3.6 {ratio} Normal <5.0 [facility] Comment on above: Order Comment: FASTI NG:YES FASTING: YES Performed By: #### 7 , 9100, 77780 #### [facility] [address] [address] Grocery Checker: Yash Campuzano MD NON HDL CHOLESTEROL 130 mg/dL (calc) High <130 [facility] Comment on above: Order Comment: FASTI NG:YES FASTING: YES Result Comment: For patients with diabetes plus 1 major ASCVD risk factor, treating to a non-HDL-C goal of <100 mg/dL (LDL-C of <70 mg/dL) is considered a therapeutic option. Performed By: #### 7 , 8590, 14542 #### [facility] [address] [address] Grocery Checker: Yash Campuzano MD Triglyceride [Mass/Vol] 280 mg/dL High <150 [facility] Comment on above: Order Comment: FASTI NG:YES FASTING: YES Result Comment: If a non-fasting specimen was collected, consider repeat triglyceride testing on a fasting specimen if clinically indicated. Marquise et al. J. of Clin. Lipidol. 2015;9:129-169. Performed By: #### 7 13, 7600, 40988 #### [facility] [address], [address] [place] [address] Grocery Checker: Yash Campuzano MD PHENYTOINon 10-30-2021 Phenytoin [Mass/Vol] 18.9 ug/mL Normal 10.0-20.0 [facility] Comment on above: Performed By: #### 7 13, 0, 71325 #### [facility] [address] [address] Gro[employer] Checker: Yash Campuzano MD CBC (INCLUDES DIFF/PLT)on Basophils (Bld) [#/Vol] 0.071 10*3/uL Normal 0-200 [facility] Comment on above: Performed By: #### 7 13, 7599, 6399 #### [facility] [address], [address] [place] [address] Grocery Checker: Yash Campuzano MD Basophils/100 WBC (Bld) 1.2 % Normal [facility] Comment on above: Performed By: #### 7 13, 760, 6399 #### [facility] [address] [address] Grocery Checker: Yash Campuzano MD Eosinophils (Bld) [#/Vol] 0.277 10*3/uL Normal 15-500 [facility] Comment on above: Performed By: #### 7 , 7599, 6399 #### [facility] [address] [address] Grocery Checker: Yash Campuzano MD Eosinophils/100 WBC (Bld) 4.7 % Normal [facility] Comment on above: Performed By: #### 7 , 760, 6399 #### [facility] [address] [address] Grocery Checker: Yash Campuzano MD Erythrocyte distribution width (RBC) [Ratio] 12.8 % Normal 11.0-15.0 [facility] Comment on above: Performed By: #### 7 , 7599, 6399 #### [facility] of [address] [place] [address] Grocery Checker: Yash Campuzano MD Hematocrit (Bld) [Volume fraction] 42.1 % Normal 38.5-50.0 [facility] Comment on above: Performed By: #### 7 , 7599, 6399 #### [facility] of [address] [place] [address] Grocery Checker: Yash Campuzano MD Hemoglobin (Bld) [Mass/Vol] 14.9 g/dL Normal 13.2-17.1 [facility] Comment on above: Performed By: #### 7 , 7599, 63 #### [facility] of [address] [place] [address] Grocery Checker: Yash Campuzano MD Lymphocytes (Bld) [#/Vol] 1.068 10*3/uL Normal 850-3900 [facility] Comment on above: Performed By: #### 7 , 7599, 6399 #### [facility] [address] [place] [address] Grocery Checker: Yash Campuzano MD Lymphocytes/100 WBC (Bld) 18.1 % Normal [facility] Comment on above: Performed By: #### 7 , 7599, 6399 #### [facility] [address] [place] [address] Grocery Checker: Yash Campuzano MD MCH (RBC) [Entitic mass] 32.9 pg Normal 27.0-33.0 [facility] Comment on above: Performed By: #### 7 , 7599, 6399 #### [facility] of [address] [place] [address] Grocery Checker: Yash Campuzano MD MCHC (RBC) [Mass/Vol] 35.4 g/dL Normal 32.0-36.0 [facility] Comment on above: Performed By: #### 7 13, 7599, 6399 #### [facility] [address] [place] [address] Grocery Checker: Yash Campuzano MD MCV (RBC) [Entitic vol] 92.9 fL Normal 80.0-100.0 [facility] Comment on above: Performed By: #### 7 13, 7599, 6399 #### [facility] [address] [place] [address] Grocery Checker: Yash Campuzano MD Monocytes (Bld) [#/Vol] 0.531 10*3/uL Normal 200-950 [facility] Comment on above: Performed By: #### 7 13, 7599, 6399 #### [facility] [place] [address] Grocery Checker: Yash Campuzano MD Monocytes/100 WBC (Bld) 9.0 % Normal [facility] Comment on above: Performed By: #### 7 13, 7599, 6399 #### [facility] of [place] [address] Grocery Checker: Yash Campuzano MD Neutrophils (Bld) [#/Vol] 3.953 10*3/uL Normal [id number] [facility] Comment on above: Performed By: #### 7 13, 7599, 6399 #### [facility] [place] [address] Grocery Checker: Yash Campuzano MD Neutrophils/100 WBC (Bld) 67 % Normal [facility] Comment on above: Performed By: #### 7 13, 7599, 6399 #### [facility] [place] [address] Grocery Checker: Yash Campuzano MD Platelet mean volume (Bld) [Entitic vol] 11.0 fL Normal 7.5-12.5 [facility] Comment on above: Performed By: #### 7 13, 7599, 6399 #### [facility] of [address], [address] [place] [address] Grocery Checker: Yash Campuzano MD Platelets (Bld) [#/Vol] 200 10*3/uL Normal 140-400 [facility] Comment on above: Performed By: #### 7 13, 7600, 6399 #### [facility] of [address], [address] [place] [address] Grocery Checker: Yash Campuzano MD RBC (Bld) [#/Vol] 4.53 10*6/uL Normal 4.20-5.80 [facility] Comment on above: Performed By: #### 7 13, 7600, 6399 #### [facility] of [address], [address] [place] [address] Grocery Checker: Yash Campuzano MD WBC (Bld) [#/Vol] 5.9 10*3/uL Normal 3.8-10.8 [facility] Comment on above: Performed By: #### 7 13, 7599, 6399 #### [facility] [address], [address] [place] [address] Grocery Checker: Yash Campuzano MD LIPID PANEL, [address] Cholesterol [Mass/Vol] 218 mg/dL High <200 [facility] Comment on above: Order Comment: FASTI NG:YES FASTING: YES Performed By: #### 7 13, 7600, 6399 #### [facility] [place] [address] Grocery Checker: Yash Campuzano MD Cholesterol in HDL [Mass/Vol] 55 mg/dL Normal > OR = 40 [facility] Comment on above: Order Comment: FASTI NG:YES FASTING: YES Performed By: #### 7 13, 7600, 6399 #### [facility] [place] [address] Grocery Checker: Yash Campuzano MD Cholesterol in LDL [Mass/Vol] [...] LDL-C. Gennaro ALMANZAR et al. KO. 2013;310(19): 3316-1013 (http://education.[employer]/faq/PJQ671) Performed By: #### 7 , 9810, 6999 #### [facility] [address], [address] [place] [address] Grocery Checker: Yash Campuzano MD Cholesterol.total/Ch olesterol in HDL [Mass ratio] 4.0 {ratio} Normal <5.0 [facility] Comment on above: Order Comment: FASTI NG:YES FASTING: YES Performed By: #### 7 , 388, 3000 #### [facility] [address], [address] [place] [address] Grocery Checker: Yash Campuzano MD NON HDL CHOLESTEROL 163 mg/dL (calc) High <130 [facility] Comment on above: Order Comment: FASTI NG:YES FASTING: YES Result Comment: For patients with diabetes plus 1 major ASCVD risk factor, treating to a non-HDL-C goal of <100 mg/dL (LDL-C of <70 mg/dL) is considered a therapeutic option. Performed By: #### 7 , 088, 0159 #### [facility] [address], [address] [place] [address] Grocery Checker: Yash Campuzano MD Triglyceride [Mass/Vol] 200 mg/dL High <150 [facility] Comment on above: Order Comment: FASTI NG:YES FASTING: YES Result Comment: If a non-fasting specimen was collected, consider repeat triglyceride testing on a fasting specimen if clinically indicated. Marquise et al. J. of Clin. Lipidol. 2015;9:129-169. Performed By: #### 7 , 9760, 2432 #### [facility] [address], [address] [place] [address] Grocery Checker: Yash Campuzano MD PHENYTOINon 04-18-2021 Phenytoin [Mass/Vol] 25.0 ug/mL High 10.0-20.0 [facility] Comment on above: Performed By: #### 7 13, 5800, 7832 #### [facility] [address], [address] [place] [address] Grocery Checker: Yash Campuzano MD APTTon 11-20-2020 aPTT Coag (Bld) [Time] 33.4 s Normal 25.0-35.0 [facility] Comment on above: Result Comment: ALL [...] THIS PURPOSE. Performed By: #### 5 6101, 38551 ####[facility] BNP EDon 11-20-2020 Natriuretic peptide B (Bld) [Mass/Vol] 111 pg/mL High 0-100 [facility] Comment on above: Result Comment: Give n the appropriate clinical setting a BNP result of >100 pg/mL indicates congestive heart failure. Performed By: #### 3 0935 #### [facility] [address] CBC W/DIFFon 11-20-2020 ABS IMM GRANS 0.0 10*3/uL Normal 0.0-0.2 [facility] Comment on above: Performed By: #### 5 0103 ####[facility] ABS NEUTROPHILS 3.9 10*3/uL Normal 1.6-7.6 [facility] Comment on above: Performed By: #### 5 0103 ####[facility] [place] [address], [facility] Basophils (Bld) [#/Vol] 0.1 10*3/uL Normal 0.0-0.2 [facility] Comment on above: Performed By: #### 5 3 ####[facility] [place] [address], [facility] Basophils/100 WBC (Bld) 1.0 % Normal 0.0-1.0 [facility] Comment on above: Performed By: #### 5 3 ####[facility] [place] [address], [facility] Eosinophils (Bld) [#/Vol] 0.3 10*3/uL Normal 0.0-0.5 [facility] Comment on above: Performed By: #### 5 102 ####[facility] [place] [address], [facility] Eosinophils/100 WBC (Bld) 5.1 % Normal 0.0-6.0 [facility] Comment on above: Performed By: #### 5 3 ####[facility].[address] Erythrocyte distribution width (RBC) [Ratio] 13.1 % Normal 11.5-15.0 [facility] Comment on above: Performed By: #### 5 3 ####[facility] [facility].[address] Hematocrit (Bld) [Volume fraction] 45.4 % Normal 39.0-50.0 [facility] Comment on above: Performed By: #### 5 3 ####[facility] [place] [address], [facility] Hemoglobin (Bld) [Mass/Vol] 14.8 g/dL Normal 13.0-17.0 [facility] Comment on above: Performed By: #### 5 3 ####[facility] IMMATURE GRANS 0.3 % Normal 0.0-1.0 [facility] Comment on above: Performed By: #### 5 3 ####[facility] Lymphocytes (Bld) [#/Vol] 1.0 10*3/uL Low 1.2-4.0 [facility] Comment on above: Performed By: #### 5 3 ####[facility] Lymphocytes/100 WBC (Bld) 17.5 % Low 20.0-45.0 [facility] Comment on above: Performed By: #### 5 102 ####[facility] [place] [address] MCH (RBC) [Entitic mass] 32.5 pg Normal 27.0-33.0 [facility] Comment on above: Performed By: #### 5 3 ####[facility] MCHC (RBC) [Mass/Vol] 32.6 g/dL Normal 32.0-35.0 [facility] Comment on above: Performed By: #### 5 3 ####[facility] MCV (RBC) [Entitic vol] 99.6 fL High 82.0-98.0 [facility] Comment on above: Performed By: #### 5 3 ####[address] Monocytes (Bld) [#/Vol] 0.6 10*3/uL Normal 0.1-1.0 [facility] Comment on above: Performed By: #### 5 0103 ####[facility] [place] [address], [facility] MONOS 9.4 % Normal 5.0-12.0 [facility] Comment on above: Performed By: #### 5 3 ####[facility] [place] [address], [facility] Neutrophils/100 WBC (Bld) 66.7 % Normal 40.0-72.0 [facility] Comment on above: Performed By: #### 5 0103 ####[facility] [place] [address], [facility] Nucleated RBC/100 WBC (Bld) [Ratio] 0 % Normal 0-0 [facility] Comment on above: Performed By: #### 5 102 ####[facility] [place] [address], [facility] PLAT CNT 175 10*3/uL Normal 150-400 [facility] Comment on above: Performed By: #### 5 0103 ####[facility] [place] [address], [facility] RBC (Bld) [#/Vol] 4.56 10*6/uL Normal 4.20-5.70 The [facility] Comment on above: Performed By: #### 5 0103 ####[facility] [place] [address], [facility] WBC (Bld) [#/Vol] 5.88 10*3/uL Normal 4.00-10.60 The [facility] Comment on above: Performed By: #### 5 0103 ####[facility] COMP METABOLIC PANELon 11-20 Albumin [Mass/Vol] 4.0 g/dL Normal 3.5-5.7 The [facility] Comment on above: Performed By: #### 0 0121, 81231, 57975, 10172 #### [facility] [address] [place] [address], [place] ALKALINE PHOSPH 130 IU/L High 34-104 [facility] Comment on above: Performed By: #### 0 0121, 39625, 58313, 09474 #### [facility] [address] [place] [address], [place] ALT [Catalytic activity/Vol] 18 U/L Normal 7-52 [facility] Comment on above: Performed By: #### 0 0121, 88049, 36362, 17186 #### [facility] [address] [place] [address], [place] AST [Catalytic activity/Vol] 19 U/L Normal 13-39 [facility] Comment on above: Performed By: #### 0 0121, 01152, 86407, 80969 #### [facility] [address] [place] [address], [place] Bilirubin [Mass/Vol] 0.4 mg/dL Normal 0.3-1.0 [facility] Comment on above: Performed By: #### 0 0121, 07503, 48408, 62690 #### [facility] [address] [place] [address], [place] Calcium [Mass/Vol] 9.0 mg/dL Normal 8.6-10.3 [facility] Comment on above: Performed By: #### 0 0121, 13484, 02852, 23131 #### [facility] [address] [place] [address], [place] Chloride [Moles/Vol] 103 mmol/L Normal 98-107 [facility] Comment on above: Performed By: #### 0 0121, 80932, 87518, 27206 #### [facility] [address] [place] [address], [place] CO2 [Moles/Vol] 28 mmol/L Normal 21-31 [facility] Comment on above: Performed By: #### 0 0121, 08561, 83612, 02220 #### [facility] [address] [place] [address], [place] Creatinine [Mass/Vol] 0.77 mg/dL Normal 0.70-1.30 [facility] Comment on above: Performed By: #### 0 0121, 57788, 55224, 88210 #### [facility] [address] [place] [address], [place] GFR/1.73 sq M.predicted among blacks MDRD (S/P/Bld) [Vol rate/Area] mL/min/{1.73_m2} Normal >60 [facility] Comment on above: Performed By: #### 0 0121, 21540, 69355, 52943 #### [facility] [address] [place] [address], [place] GFR/1.73 sq M.predicted among non-blacks MDRD (S/P/Bld) [Vol rate/Area] mL/min/{1.73_m2} Normal >60 [facility] Comment on above: Performed By: #### 0 0121, 44855, 06221, 55263 #### [facility] [address] [place] [address], [place] Glucose [Mass/Vol] 88 mg/dL Normal 70-100 [facility] Comment on above: Performed By: #### 0 0121, 50590, 66301, 32191 #### [facility] [address] [place] [address], [place] Potassium [Moles/Vol] 4.9 mmol/L Normal 3.5-5.1 [facility] Comment on above: Performed By: #### 0 0121, 08256, 10829, 10674 #### [facility] [address] [place] [address], [facility] Protein [Mass/Vol] 7.3 g/dL Normal 6.0-8.3 [facility] Comment on above: Performed By: #### 0 0121, 81058, 99769, 69411 #### [facility] [address] [place] [address], [facility] Sodium [Moles/Vol] 138 mmol/L Normal 136-145 [facility] Comment on above: Performed By: #### 0 0121, 32198, 63540, 18981 #### [facility] [address] [place] [address], [facility] Urea nitrogen [Mass/Vol] 15 mg/dL Normal 7-25 [facility] Comment on above: Performed By: #### 0 0121, 80483, 92207, 23612 #### [facility] [address] [place] [address], [facility] CTA HEADon 11-20-2020 CTA HEAD [facility] Department of Radiology [address] [place] [address] Patient Name: NAZARIO CORTES : 1955 Sex: M Age: Race: White Pt. Location: [facility] Patient Status: E Ordered Date: 11/20/2020 11:20:00 AM Completed Date: 11/20/2020 12:11 PM Requesting Provider: MANUEL DNUN Attending Provider: KARINA JAY Report Copy To: [...] stenosis of the major vessels of the [place]. origin of bilateral posterior cerebral arteries. IMPRESSION: Normal CTA of the brain. All CT scans at this facility use dose modulation, iterative reconstruction, and/or weight based dosing when appropriate to reduce radiation dose to as low as reasonably achievable. Electronically signed: Dhaval Bain. Transcribed by: [email or web address], User Resident: Electronically Signed by: DHAVAL BAIN @ 11/20/2020 12:58 PM Normal [facility] Comment on above: Order Comment: Bleed CTA NECKon 11-20-2020 CTA NECK [facility] Department of Radiology [address] [place] [id number] Patient Name: NAZARIO CORTES : 1955 Sex: M Age: Race: White Pt. Location: [facility] Patient Status: E Ordered Date: 11/20/2020 [...] viewed on a separate workstation. The [place] Symptomatic Carotid Endarterectomy Trial (NASCET) method for [...] achievable Electronically signed: Dhaval Bain. Transcribed by: [email or web address], User Resident: Electronically Signed by: DHAVAL BAIN @ 11/20/2020 12:57 PM Normal [facility] DIRECT BILIon 11-20-2020 Bilirubin.direct [Mass/Vol] 0.1 mg/dL Normal 0.0-0.2 [facility] Comment on above: Order Comment: Liver Battery conflicts with Comprehensive Metabolic Panel. Liver Battery canceled and Direct Bilirubin added. Performed By: #### 0 0121, 93180, 72067, 03635 #### [facility] [address] LIPASE BLOODon 11-20-2020 LIPASE 27 Units/L Normal 11-82 [facility] Comment on above: Performed By: #### 0 0121, 88837, 64076, 90805 #### [address] POC SARS COV2 ANTIGEN NEGATI VEon 11-20-2020 POC SARS COV2 ANTIGEN N Negative Normal NEGATIVE [facility] Comment on above: Result Comment: Test performed on [employer]itor System for rapid detection of SARS-CoV-2. Negative [...] management. Performed By: #### 3 1919 #### [address] PORTABLE CHEST 1 VIEWon 10-23 PORTABLE CHEST 1 VIEW [facility] Department of Radiology [address] [place] [id number] Patient Name: NAZARIO CORTES : 1955 Sex: M Age: Race: White Pt. Location: [facility] Patient Status: E Ordered Date: 11/20/2020 [...] reports Electronically signed: Dhaval Bain. Transcribed by: [email or web address], User Resident: JESSENIA ALFORD Electronically Signed by: DHAVAL BAIN @ 11/20/2020 12:32 PM I personally read this/these film(s) with this resident Normal [facility] Comment on above: Order Comment: evalu ate for Pneumonia PROTHROMBIN TIMEon 0 INR Coag (PPP) [Relative time] 0.95 {INR} Normal 0.91-1.16 [facility] Comment on above: Result Comment: ACCC [...] RANGE. CHEST 1995;108:231S-246S. Performed By: #### 5 6101, 92527 ####[facility] [address] PT Coag (PPP) [Time] 12.7 s Normal 12.3-14.8 [facility] Comment on above: Result Comment: ALL RESULTS MUST BE INTERPRETED WITH RESPECT TO BLOOD DRAWING ARTIFACT OR DILUTION ERROR OF ANTICOAGULANT AT THE TIME OF SAMPLING. Performed By: #### 5 6101, 73248 ####[facility] [address] TROPONIN-Ion 11-20-2020 Troponin I.cardiac [Mass/Vol] 0.00 ng/mL Normal 0.00-0.04 [facility] Comment on above: Order Comment: No: D o not add to previous draw Result Comment: REFE RENCE RANGES: 0.00 - 0.14 ng/ml NEGATIVE 0.15 - 0.25 ng/ml INDETERMINATE > 0.25 ng/ml INDICATIVE OF AN M.I. Performed By: #### 3 5200 #### [facility] [address] Troponin I.cardiac [Mass/Vol] 0.00 ng/mL Normal 0.00-0.04 [facility] Comment on above: Result Comment: REFE RENCE RANGES: 0.00 - 0.14 ng/ml NEGATIVE 0.15 - 0.25 ng/ml INDETERMINATE > 0.25 ng/ml INDICATIVE OF AN M.I. Performed By: #### 0 0121, 62348, 96027, 95524 #### [facility] [address] [place] [address], [facility] Vital Signs Date Time Vital Sign Value Performing Clinician Facility 07-05-2023 10:00-0400 Body height 185.42 cm Luiz Riggs Other [facility] Other 07-05-2023 10:00-0400 Body mass index (BMI) [Ratio] 37.86 kg/m2 Luiz Riggs Other [facility] Other 07-05-2023 10:00-0400 Body weight 130.18 kg Luiz Riggs Other [facility] Other 07-05-2023 10:00-0400 Diastolic blood pressure 76 mm[Hg] Luiz Riggs Other [facility] Other 07-05-2023 10:00-0400 Systolic blood pressure 126 mm[Hg] Luiz Riggs Other [facility] Other 04-06-2022 17:40-0400 Body height 185.42 cm Neelam Alexandra Other [facility] Other 04-06-2022 17:40-0400 Body mass index (BMI) [Ratio] 36.15 kg/m2 Neelam Morris Other [facility] Other 04-06-2022 17:40-0400 Body temperature 98 [degF] Neelam Alexandra Other [facility] Other 04-06-2022 17:40-0400 Body weight 124.29 kg Neelam Alexandra Other [facility] Other 04-06-2022 17:40-0400 Diastolic blood pressure 69 mm[Hg] Neelam Morris Other [facility] Other 04-06-2022 17:40-0400 Respiratory rate 18 /min Neelam Morris Other [facility] Other 04-06-2022 17:40-0400 SaO2% (BldA) [Mass fraction] 95 % Neelam Morris Other [facility] Other 04-06-2022 17:40-0400 Systolic blood pressure 123 mm[Hg] Neelam Morris Other [facility] Other 12-28-2021 17:00-0500 Body height 185.42 cm Alex Castanopiper Other [facility] Other 12-28-2021 17:00-0500 Body mass index (BMI) [Ratio] 37.47 kg/m2 Alex Omairapiper Other [facility] Other 12-28-2021 17:00-0500 Body weight 128.82 kg Alex Castanopiper Other [facility] Other Encounters Encounter Date Encounter Type Care Provider Facility Start: 01-11-2024 End: 01-11-2024 ambulatory SHAIKH TIESHA Not Available Start: 01-05-2024 End: 01-06-2024 ambulatory [facility] Start: 01-05-2024 End: 01-05-2024 ambulatory [facility] Start: 12-30-2023 ambulatory Chris Archuleta ty:WYATT Fall Start: 12-21-2023 Telephone encounter Epifanio dennison MD Work Phone: [facility] Start: 12-20-2023 ambulatory [facility] Start: 12-19-2023 End: 12-20-2023 ambulatory [facility] Start: 12-15-2023 End: 12-15-2023 ambulatory JIGNESH GONSALEZ Not Available Start: 12-07-2023 End: 12-07-2023 ambulatory JIGNESH GONSALEZ Not Available Start: 11-29-2023 End: 11-29-2023 ambulatory JIGNESH GONSALEZ Not Available Start: 10-06-2023 End: 10-06-2023 ambulatory JIGNESH GONSALEZ Not Available Start: 07-18-2023 End: 07-19-2023 ambulatory JIGNESH GONSALEZ Facility:[facility] Start: 07-18-2023 End: 07-18-2023 Patient encounter procedure Chris Chata CAMARILOL [facility] Start: 07-05-2023 Office outpatient ne w 30 minutes Luiz Riggs [facility] Start: 07-05-2023 End: 07-05-2023 ambulatory MD Jignesh Gonsalez Work Phone: [facility] Work Phone: Start: 07-05-2023 End: 07-05-2023 Patient encounter procedure MD Jignesh Gonsalez Work Phone: [facility] Work Phone: Start: 01-07-2023 End: 01-08-[address] JIGNESH GONSALEZ Facility:[facility] Start: 12-24-2022 End: 12-24-[address] JIGNESH GONSALEZ Facility:[facility] Start: 11-04-2022 End: 11-04-[address] JIGNESH GONSALEZ Facility:[facility] Start: 09-29-2022 End: 09-30-[address] JIGNESH GONSALEZ Facility:[facility] Start: 08-27-[address] JOSE MARIE Fac ility:[facility] Start: 08-23-2022 End: 08-23-[address] PORTER Hopkins Facility:[facility] Start: 06-12-2022 End: 06-12-[address] JOSE MARIE Facility:[facility] Start: 04-06-2022 End: 04-06-2022 ambulatory Neelam Morris Other [facility] [employer] Other Start: 04-06-2022 Office outpatient visit 15 minutes Neelam Morris [facility] Start: 12-28-2021 End: 12-28-2021 ambulatory Alex Bonilla Other [facility] [employer] Other Start: 12-28-2021 Office outpatient ne w 30 minutes Alex Bonilla [facility] Start: 11-20-2020 End: 11-20-2020 Emergency department patient visit KARINA JAY Facility:[facility] Procedures Date Procedure Procedure Detail Performing Clinician Start: 07-05-2023 X-ray of lumbar spin e, six views including bending views MD Jignesh Gonsalez Work Phone: Start: 09-29-[address] JOSE MARIE Comment on above: Performed By: #### [facility] #### [facility] [address] [place] [place] [address] Dr. Jeimy Tenorio Extraction of cataract Patri luis antonio CAMARILLO Procedure on foot Chris WILMA MERINO Plan of Treatment Date Care Activity Detail Author Start: 12-30-2023 COVID-19 Vaccine ( season) [facility] Start: 08-16-2023 [facility] Start[facility] 08-16-2023 Fall Risk Screening [facility] Start: 08-16-2023 Tobacco Screening [facility] Start: 1974 Administration of varicella zoster vaccine Zoster (Shingles) Vaccine (1 of 2) [facility] Start: 1974 DTaP,Tdap and Td Vaccines (1 - Tdap) DTaP,Tdap and Td Vaccines (1 - Tdap) [facility] Start: 1967 Depression [facility]ening [facility] Start: 1955 Medicare Annual Wellness Visit Medicare [facility] Immunizations Immunization Date Immunization Notes Care Provider Fa cili 11-04-2023 Covid-19, Mrna, Lnp- s, Bivalent, Pf, 30mcg/0.3 ml Epifanio Kaufman MD Work Phone: [facility] 08-21-2022 influenza virus vacc ine, unspecified formulation Epifanio Kaufman MD Work Phone: [facility] 08-21-2022 SARS-COV-2 (COVID-19 ) Vaccine, Unspecified Epifanio Kaufman MD Work Phone: [facility] 08-06-2021 Influenza Vaccine, Quadrivalent, Adjuvanted Epifanio Kaufman MD Work Phone: [facility] 02-25-2021 COVID-19, mRNA, LNP- S, PF, 100mcg/0.5mL Dose Epifanio Kaufman MD Work Phone: [facility] 02-12-2021 COVID-19, mRNA, LNP- S, PF, 30mcg/0.3mL Dose Epifanio Kaufman MD Work Phone: [facility] 08-05-2020 influenza, injectabl e, quadrivalent, preservative free Epifanio Kaufman MD Work Phone: [facility] 08-05-2020 pneumococcal polysaccharide vaccine, 23 valent Epifanio Kaufman MD Work Phone: [facility] 09-03-2019 influenza, seasonal, injectable Epifanio Kaufman MD Work Phone: [facility] 08-24-2019 influenza, injectabl e, quadrivalent, preservative free Epifanio Kaufman MD Work Phone: [facility] Payers Date Payer Category Payer Medicaid [id number] 2023 Self-pay [id number] 2022 Medicare [id number] 2021 Medicare [employer] MEDICARE A ETNA MEDICARE PLAN (HMO) [id number] 2021-Present [phone] [address] [place] [address] [id number] 2021 Unknown [id number] 2021 Medicare [id number] 2020 Medicare [id number] 2019 Unknown [id number] 1959 Medicare [id number] 1955 Unknown [id number] 2.16.840.1.977538.3.579.2.647 1955 Unknown [id number] 2.16.840.1.491446.3.579.2.593 1955 Unknown [id number] 2.16.840.1.566438.3.579.2.593 1955 Unknown [id number] 2.16.840.1.041931.3.579.2.593 1955 Unknown [id number] 2.16.840.1.360598.3.579.2.593 1955 Unknown [id number] 2.16.840.1.368347.3.579.2.593 1955 Unknown [id number] 2.16.840.1.678420.3.579.2.593 1955 Unknown [id number] 2.16.840.1.453309.3.579.2.593 1955 Unknown [id number] 2.16.840.1.810346.3.579.2.1286 1955 Unknown [id number] 2.16.840.1.078234.3.579.2.727 1955 Unknown [id number] 2.16.840.1.109057.3.579.2.727 1955 Unknown [id number] 2.16.840.1.549546.3.579.2.1259 1955 Unknown [id number] 2.16.840.1.751987.3.579.2.1259 1955 Unknown [id number] 1955 Unknown [id number] 1955 Unknown [id number] Medicare [id number] Unknown [id number] Social History Date Type Detail Facility Start: 01-01-2021 End: 08-16-2022 Sex Assigned At [facility] Start: 1955 Sex Assigned At Male F [facility] Tobacco smoking status No Smokin g Status Entered [facility] [employer] Start: 01-29-2020 [facility] History of tobacco use Current smoker [facility] History of tobacco use Cigarette Smoker P [facility] Start: 01-29-2020 End: 01-01-2021 Cigarettes smoked current (pack per day) - Reported 3 [facility] Start: 01-29-2020 Tobacco use and exposure Smokeless tobacco non-user [facility] Start: 08-16-2022 Alcohol intake Ex-drinker (finding) [facility] Childcare Unknown [facility] Start: 1955 Sex Assigned At Not on file P [facility] Clinical Notes 11-21-2020 to 01-05-2024 Telephone Encounter - Marissa Aguilera - 12/21/2023 3:24 PM ESTTelephone Encounter - Marissa Aguilera - 12/21/2023 3:24 PM EST Note Date & Type Note Facility 02-15-2024 Note SUBJECTIVE: Chief complaint: Back pain. History of present illness: Consultation referred by primary care provider Dr. Gonsalez for back pain. Patient reports back and leg pain for many years. Back pain is across my beltline and into the left hip, though also has pain that radiates anteriorly down both legs to his feet. Symptoms do not vary with time of day. Somewhat better with reclining. Worse with activity, including housework, standing, walking. Notes that he can only walk for 10 to 15 minutes due to his back and leg symptoms. He does have issues with his legs giving out and his knees buckling. Feels that his right thigh feels tired with activity. He does report imbalance and has had multiple falls despite the use of a rolling walker. 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 He was recently diagnosed with a left foot drop and told to wear an AFO brace, though it is not clear what precipitated the foot drop. He denies bowel incontinence, though he notes that he wears adult briefs at nighttime for some nocturnal urinary incontinence. Has tried Tylenol and NSAIDs without lasting or substantial relief. He has seen pain management in the past, about 6 or 7 years ago, in [facility] and had injections. He states he has made his symptoms worse. Has had team primary care physician many years ago for previous symptoms of sciatica down his left leg. Has not had previous back surgery. He did recently see neurosurgeon Dr. Riggs regarding his back concerns, who felt that his low back was not the problem and referred him for physical therapy due to suspicion of a cervical spine issue. Patient states physical therapist worked on his lumbar spine and not his cervical spine. Does report chronic neck pain as well as pain into his left shoulder. No variation in symptoms with time of day. Nothing in particular makes them better or worse. He does have chronic numbness and tingling in his fourth and fifth fingers bilaterally, which he attributes to his history of carpal tunnel syndrome and peripheral neuropathy from previous chemotherapy. He has had previous bilateral carpal tunnel decompressions. Does report difficulty with fine motor control and dropping objects with both hands. Also reports issues with leg weakness, including legs giving out, imbalance, frequent falls despite the use of a rolling walker. Notes that he walks like I am drunk. Not clear when this started, though states was not present at times of previous neck surgeries. Denies bowel incontinence, though notes he wears adult briefs at nighttime for some nocturnal urinary incontinence. Notes that he did have a previous ACDF many years ago. States this procedure was done due to right arm numbness. Seem to help. Had subsequent PCDF for spinal stenosis, though does not recall what symptoms he was having at that time. Review of systems: Constitutional: Denies fever, chills. Head: Denies headaches. Eyes: Denies vision change. Ears: Hard of hearing. Nose/throat: Denies dysphagia. Cardiovascular: Denies chest pain. Respiratory: Denies cough, shortness of breath. Extremities: Denies edema. Genitourinary: Denies incontinence or retention. Gastrointestinal: Denies bowel incontinence. Neurologic: Reports weakness, numbness, tingling, unsteady gait, falls. Musculoskeletal: Reports neck pain, back pain. Past Medical History: Diagnosis Date Bladder cancer ([facility]) around 1997 Cholelithiasis Colon polyp Depression Dyslipidemia Hearing loss Left foot drop Peripheral neuropathy Seizure disorder ([facility]) TIA (transient ischemic attack) Past Surgical History: Procedure Laterality Date ANTERIOR CERVICAL DISCECTOMY W/ FUSION C5-C7 CARDIAC CATHETERIZATION CARPAL TUNNEL RELEASE Bilateral CATARACT EXTRACTION, BILATERAL CHEST WALL BIOPSY thoracoscopy wedge resection of lung CHOLECYSTECTOMY COLONOSCOPY CT HEAD ANGIO W AND WO IV CONTRAST 11/20/2020 CT HEAD ANGIO W AND WO IV CONTRAST PANDYA CONVERSION CT NECK ANGIO W AND WO IV CONTRAST 11/20/2020 CT NECK ANGIO W AND WO IV CONTRAST PANDYA CONVERSION FOOT SURGERY Achilles LYMPH NODE DISSECTION POSTERIOR CERVICAL LAMINECTOMY PCDF C3-C5 SHOULDER SURGERY Social History Tobacco Use Smoking status: Former Types: Cigarettes Quit date: 04/18/1997 Years since quittin.7 Smokeless tobacco: Never Substance Use Topics Alcohol use: Not Currently Drug use: Never Family History Problem Relation Name Age of Onset Supraventricular tachycardia Mother Stroke Father Kidney cancer Sister Diabetes Sister COPD Brother OBJECTIVE: Medications: aspirin atorvastatin citalopram meclizine Multivitamin 50 Plus tablet PHENobarbitaL phenytoin ER vitamin B complex Current Outpatient Medications: aspirin 81 mg EC tablet, Take 1 tablet by mouth in (more content not included)... [facility] 12-21-2023 Miscellaneous Notes Received faxed referral for patient to be seen for Lumbar. Called and spoke to patient, stated he has an appointment set up already at [facility] office. documented in this encounter [employer] 12-21-2023 Telephone encounter Note Received faxed referral for patient to be seen for Lumbar. Called and spoke to patient, stated he has an appointment set up already at [facility] office. [employer] 07-05-2023 Evaluation note Encounter Date Diagnosis Assessment [...] fusion of cervical spine (ICD-10 - Z98.1) [facility] Other 06-09-2023 Hospital Discharge instructions Follow Up Care 04/29/2023 15:31:28 With:RABIA GAN, Chris Brizuela, URL Address: [facility] [address] , [place] [address]- [phone] When: Unknown [facility] [employer] 11-10-2022 NotePROCEDURE: XR FOOT RT MIN 3 [...] Electronically authenticated by: KELL BLANDON Date: 2022-09-30 08:[address] [place], [place] 3213910-03-2022 NotePROCEDURE: XR KNEE LT 4V or >, [...] Electronically authenticated by: TRINIDAD BEAVER Date: 2022-08-23 14: [id number] NotePROCEDURE: XR KNEE LT 4V or >, [...] Electronically authenticated by: TRINIDAD BEAVER Date: 2022-08-23 14:[facility]10-03-2022 NotePROCEDURE: XR KNEE LT 4V or >, [...] authenticated by: TRINIDAD BEAVER Date: 2022-08-23 14:20[id number] Evaluation note* Encounter Date Diagnosis Assessment Notes Treatment Notes Treatment Clinical Notes March, Bilateral impacted cerumen (ICD-10 - H61.23) Avoid using Q-tips or earplugs. Keep your ears clean and dry. Follow-up with your family physician for any further concerns. [facility] Other 02-07-2022 Evaluation note* Encounter Date Diagnosis [...] contact us for further management as needed. [facility] Other 01-01-2021 NoteMR#: [id number] E [facility] Pt. Name: Nazario Cortes Admitted: 11/20/2020 [...] history of coronary artery disease, followed by [facility] Cardiology Clinic that presents to the [facility] Emergency Department with complaints of chest [...] to follow up with his PCP and change agent. Total time of discharge was 45 minutes. Electronically Signed by: Trinidad Hamilton MD 11/21/2020 08:00 A Trinidad Hamilton MD .. Date Dict: 11/20/2020/06:21 P/Loida Ashley CNP Date Trans: 11/21/2020 12:04 A/shabbir [id number] cc: Jose Marie M.D. [facility] [address] [place] [address]., [address] [place] [address]mgSt[facility] Center[facility] + Plan note Future Appointments Appointment Date:08/19/2023 10:30:00 AM Scheduled Provider:Chris CAMARILLO MD Location:[facility] Appointment Type:URO New Patient [facility] evaluation noteNo assessment information available [facility] Work Phone: [employer] general Narrative - Reported* Type Description Date Medical History Seizure Disorder Medical History neuropathy Medical History HX of Bladder CA Medical History hypercholesterolemia Surgical History TUMOR REMOVED FROM BLADDER Surgical History RIGHT ACHILLES TENDON REPAIR Hospitalization History See Above [facility] Other History general Narrative - Reported* Type [...] Surgical History gallbladder Hospitalization History See Above [facility] Other Hospital course Narrative No data available for this section [facility] InstructionsNot on filedocumented in this encounter [facility] note No data available for this section [facility] reason for visit NarrativeReferral Dr. Newell [facility] [employer] Other Summary Purpose Family History No Family [...] o other toxic agents (G62.2) Referral Organization [facility] urosurgery Referring Provider First Name Luiz Referring Provider Last Name Keely Referring Provider Specialty Neurologica l Surgery Referred Organization [facility] Referred Address ,[place], [place],[address] Referred Provider Specialty Physical The rapist Referral Priority Routine Chief Complaint and Reason for Visit Chief Complaint m51.36. Additional Source Comments (unrecognized sect ion and content) No Status Records FoundNo Status Records FoundNo Status Records FoundNo Status Records FoundNo Status Records FoundNo Status Records FoundNo Status Records FoundNo Status Records Found INFORMATION SOURCE (unrecogn ized section and content) DATE CREATED AUTHOR 08/29/2021 [facility] DATE CREATED AUTHOR AUTHOR'S ORGANIZ ATION 10/31/2021 [facility] DATE CREATED AUTHOR AUTHOR'S ORGANIZ ATION 01/13/2023 [facility] DATE CREATED AUTHOR AUTHOR'S ORGANIZ ATION 07/14/2023 [facility] DATE CREATED AUTHOR AUTHOR'S ORGANIZ ATION 12/25/2023 [facility] DATE CREATED AUTHOR AUTHOR'S ORGANIZ ATION 12/29/2023 [facility] DATE CREATED AUTHOR AUTHOR'S ORGANIZ ATION 01/09/2024 [place] DATE CREATED AUTHOR AUTHOR'S ORGANIZ ATION 01/19/2024 [facility] EPIC REASON FOR VISIT (unrecogniz ed section and content) RIGHT EAR PRESSURE/PAIN, DEN IES OTHER SXSleft leg weakness, back pain Care Teams (unrecognized sec tion and content) Team Status: Active Member Role Status Dates Jignesh Gonsalez MD Primary Care Provider Active Team Status: Inactive Member Role Status Dates Luiz Riggs MD Attending Provider Active Jignesh Gonsalez MD Primary Care Provider Active Lead Network Architect Relationship Specialty Start Date End Date Jose Marie DO [address] [facility], [facility] [place] [address] PCP - General Family Medicine 11/17/23 Goals [...] BE BASED ON THE PRIMARY CLINICAL RECORDS. [facility]. provides no warranty or guarantee of the accuracy or completeness of information in this document.
--- NOTE | 2024-01-30 16:01 | XR_ITS ---
The [address] [address] Patient Name: GÓMEZ CORTES MRN: [id number] date: 1955 Sex: M Assigned Patient Location: ER Current Patient Location: ER Accession/Order Number: [id number] Exam Date: 01/30/2024 15:45 Report Date: 01/30/2024 16:46 At the request of: AMBIKA YI Procedure: XR wrist LT min 3V IMAGES REVIEWED: XR wrist LT min 3V COMPARISON: None available. CLINICAL INDICATION: injury FINDINGS/IMPRESSION: 1. No radiographic evidence of acute osseous abnormality of the left wrist. 2. Soft tissue swelling. 3. Chronic deformity fifth metacarpal base. 4. Mild-moderate degenerative change DRUJ and first CMC joint. 5. Peripheral arterial disease. Electronically authenticated by: ORLANDO DICKINSON Date: 01/30/2024 16:46
--- NOTE | 2024-01-30 16:01 | XR_ITS ---
The [address] [address] Patient Name: GÓMEZ CORTES MRN: [id number] date: 1955 Sex: M Assigned Patient Location: ER Current Patient Location: ER Accession/Order Number: [id number] Exam Date: 01/30/2024 15:45 Report Date: 01/30/2024 16:16 At the request of: AMBIKA YI Procedure: XR cervical spine 2-3V EXAM: XR cervical spine 2-3V CLINICAL INDICATION: fall, pain COMPARISON: None TECHNIQUE: 4 views of the cervical spine FINDINGS: The cervical spine is seen from C1 through C7. Posterior spinal fusion changes from C3 through C5 and anterior cervical discectomy and fusion change from C5 through C7 noted without overt complications. Vertebral body heights are maintained without evidence for acute fracture. No subluxations. Moderate multilevel degenerative changes of the cervical spine. Bilateral facet and uncovertebral hypertrophy throughout the cervical spine. The odontoid and lateral masses are grossly intact. Prevertebral soft tissues are within normal limits. XR/XR cervical spine 2-3V IMPRESSION: Postoperative and multilevel degenerative changes of the cervical spine without evidence for complication or acute fracture. Electronically authenticated by: ARLEEN DIAZ Date: 01/30/2024 16:16
--- NOTE | 2024-01-30 16:01 | XR_ITS ---
[address] [address] Patient Name: GÓMEZ CORTES MRN: [id number] date: 1955 Sex: M Assigned Patient Location: ER Current Patient Location: ER Accession/Order Number: [id number] Exam Date: 01/30/2024 15:45 Report Date: 01/30/2024 16:13 At the request of: AMBIKA YI Procedure: XR knee RT 3V 3 views of the right knee INDICATION: Fall COMPARISON: None XR/XR knee RT 3V IMPRESSION: No acute fracture or dislocation. Mild tricompartment osteoarthritis. Patellar enthesopathy. No significant joint effusion. Mild prepatellar soft tissue swelling. Electronically authenticated by: ARLEEN DIAZ Date: 01/30/2024 16:13
== END 2024-01-30 17:09 | disposition home or self-care (01) ==
PROVIDERS: Emergency Provider Emergency Medicine; PCP Family Medicine
DX: M54.2 Cervicalgia (principal); S89.91XA Unspecified injury of right lower leg, initial encounter; S80.211A Abrasion, right knee, initial encounter; S60.812A Abrasion of left wrist, initial encounter; W01.0XXA Fall on same level from slipping, tripping and stumbling without subsequent striking against object, initial encounter; I25.10 Atherosclerotic heart disease of native coronary artery without angina pectoris; E78.5 Hyperlipidemia, unspecified; Z85.51 Personal history of malignant neoplasm of bladder; Z87.891 Personal history of nicotine dependence
CPT/HCPCS: 72040; 73110; 73562; 99284

== ENCOUNTER 2024-02-19 14:26 | Emergency (ER) | payer MEDICARE, MEDICAID, SELFPAY ==
--- OUTSIDE RECORDS SUMMARY | 2024-02-19 14:41 | XMS_ITS | CCD ---
Author Organization [facility] Care Team Providers Care Truck Dispatcher Name Role Phone KARINA JAY Attending Unavailable SELF, REFERRED Referring Unavailable JOSE MARIE Primary Care Unavailable BUDDY MEJÍAHAIB Admitting Unavailable Alex Bonilla Unavailable Neelam Morris Unavailable AME, DR JOSE Danielson Admitting Unavailable FURLONG, DR JOSE Danielson Attending Unavailable NADEREChata, DR JIGNESH Means Primary Care Unavailable AME, DR JOSE Danielson Primary Care Unavailable CARRIE LAZO Consulting Unavailable FAWBRAYAN, TONY H Admitting Unavailable MIGUEL MOTLEYIKH H Attending Unavailable FAWWAVictorina TONY H Consulting Unavailable MAMIE ALFORD Consulting Unavailable HAY ., DR BUENROSTRO Admitting Unavailable HAY ., DR BUENROSTRO Attending Unavailable NADEREChata, DR JIGNESH Means Primary Care Unavailable WEST, DR TRINIDAD Cummins Consulting Unavailable LUZMARIA ., YONAS Consulting Unavailable NADERER, DR JIGNESH Means Primary Care Unavailable HAY ., DR BUENROSTRO Admitting Unavailable HAY ., DR BUENROSTRO Attending Unavailable HAY ., DR BUENROSTRO Consulting Unavailable ALEJANDRO PINEDA Consulting Unavailable MARCOSEREChata, DR JIGNESH Means Primary Care Unavailable PAY ., DR NOVAK Admitting Unavailable PAY ., DR NOVAK Attending Unavailable PAY ., DR NOVAK Consulting Unavailable GRECHNY ., ANNABELLE WILLINGHAM Consulting Unavailyesi e AHKRYSTAL, VIDAL Consulting Unavailable KELL DELANEY Consulting Unavailable WALLACE, DR JIGNESH Means Admitting Unavailable WALLACE, DR JIGNESH Means Attending Unavailable WALLACE, DR JIGNESH Means Primary Care Unavailable BARBER, DR KELL Brizuela Consulting Unavailable NADERER, DR JIGNESH Means Consulting Unavailable NADEREChata, DR JIGNESH Means Admitting Unavailable NADEREChata, DR JIGNESH Means Attending Unavailable WALLACE, DR JIGNESH Means Primary Care Unavailable BARBER, DR KELL Brizuela Consulting Unavailable NADEREChata, DR JIGNESH Means Consulting Unavailable Luiz Riggs Unavailable MD Luiz Riggs Attending Provider MD Jignesh Gonsalez Primary Care Provider Luiz Riggs Attending Unavailable Luiz Riggs Admitting Unavailable Jignesh Gonsalez Primary Care Unavailable JIGNESH GONSALEZ Primary Care Physician Jose Marie DO Primary Care Provider [phone] Chris CAMARILLO Attending Unavailable JIGNESH GONSALEZ Referring Unavailable Chris CAMARILLO Attending Unavailable OVITT, CORNELIO Attending Unavailable OVITT, CORNELIO Referring Unavailable ROGERIO BAINS Referring Unavailable JIGNESH GONSALEZ Attending Unavailable JIGNESH GONSALEZ Attending Unavailable SHAIKH MOTLEY Attending Unavailable Allergies Allergy Classification Reported Allergen(s) Allergy Type Date of Onset Reaction(s) Facility (5 sources) gabapentin; Translations: [GABAPENTIN] Drug Allergy 0 [facility] Repository (2 sources) oxyCODONE Drug Allergy 0 [facility] Repository (3 sources) Phenytoin; Translations: [Dilantin] Drug Allergy 0 [facility] Repository (5 sources) gabapentin; Translations: [gabapentin] Drug Allergy 0 Unknown (qualifier value) [facility] (8 sources) oxyCODONE; Translations: [oxycodone] Drug Allergy 0 Difficulty breathing (finding), Angioedema [facility] (5 sources) Phenytoin; Translations: [phenytoin] Drug Allergy 6 Dizziness (finding), Dizziness [facility] (1 source) Phenytoin; Translations: [PHENYTOIN SODIUM EXTENDED] Drug Allergy 6 [facility] Repository (1 source) ALLERGIES NOT ON FILE; Translations: [ALLERGIES NOT ON FILE] Propensity to adverse reactions (disorder) [facility] Repository Medications Current Medications Medication Drug Class(es) Dates Sig (Normalized) Sig (Original) Acetaminophen / HYDROcodone (2 sources) Opioid Agonist Mcdowell Active take 1 tablet by ambika th [...] 2 mg/ml injectable solution (1 source) vit C4-U1-L8-B5- B6 (B-COMPLEX INJECTION) 981-4-715-2-2 mg/mL solution B-Complex 1 QD 0 Active [...] 0 Active Meloxicam Not-Ta noa Meloxicam Active uoavdfttzums-uhnckfxd-xsrdut (MULTIVITAMIN 50 PLUS) tablet (1 source) multivitamin-min [...] disease (1 source) Atherosclerotic heart disease of [place] coronary artery without angina pectoris; Translations: [ASHD [place] CA W/O ANGINA PECTORIS] Onset: 12-27-2022 Chronic [...] 08-16-2022 08-16-2022 Chronic Other aftercare (1 source) 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; Translations: [JAIL CURRENT USE OF ASPIRIN] Onset: 12-27-2022 Episodic Other aftercare (1 source) 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; Translations: [OTH JAIL CURRENT DRUG THERAPY] Onset: 12-27-2022 Episodic Other [...] Interpretation Reference Range Facility Consulton 01-05-2024 Consult [id number] Nazario Cortes 1955 M Date Provider Department Center 01/05/2024 CORNELIO NEGRON [facility] [place] Family History Problem Relation Age of Onset Supraventricular tachycardia Mother Stroke Father Kidney cancer Sister Diabetes Sister COPD Brother Family Status - Relation Status Age at Mother Father Sister Brother Level of Service:44944 [place] OFFICE/OUTPATIENT NEW MODERATE MDM 45 MINUTES Reason for Visit and Comments: Consult [994] - Nazario is here today for a [...] little relief about 6-7 years ago. Normal [facility] XR lumbar spine 6V w bending on 07-05-2023 XR lumbar spine 6V w bending [facility] [place] [address] XRay Report Signed Patient: Nazario Cortes Jr MR#: [id number] : 1955 Acct:[id number] Age/Sex: 68 / M ADM Date: 07/05/23 Loc: XD Room: Type: [facility] Attending Dr: Luiz Riggs MD Copies to: [...] Hoa Lockwood M.D.07/05/2023 2:21 PM Dictation Location: [place] [address] Transcribed By: [facility] 07/05/23 1421 Dictated By: Hoa Lockwood MD 07/05/23 1415 Signed By: 07/05/23 1421 [facility] US CAROTID ART BILon 023 US [...] by: KELL BLANDON Date: 2023-01-11 08:42 Normal [facility] ECHOCARDIO M/2D COMPLETEon 0 01-07-2023 ECHOCARDIO M/2D COMPLETE Patient: NAZARIO CORTES Exam Date: 01/07/2023 : 1955 Gender:M Ordering : DR JIGNESH GONSLAEZ . Admission #: [id number] Family : Order #: [id number] CLICK HERE TO VIEW EXAM ECHOCARDIOGRAM REPORT [...] Smith M.D. on 01/11/2023 at 18:23 Normal [facility] XR ELBOW LT MIN 3 VIEWSon 02 -03-2023 XR ELBOW LT MIN 3 VIEWS EXAM: [...] left radial head fracture. Electronically authenticated by: [facility] Date: 2022-12-24 20:23 Normal [facility] XR HIP LT 2 3V W PELVISon XR HIP LT 2 3V W PELVIS EXAM: XR HIP LT 2 3V W PELVIS HISTORY: Bone injury COMPARISON: None. TECHNIQUE: 3 views of the left hip FINDINGS: No acute fracture is seen. Joint alignment is normal. Joint spaces are preserved. Soft tissues appear unremarkable. IMPRESSION: No acute fracture or malalignment. Electronically authenticated by: [facility] Date: 2022-12-24 20:21 Normal [facility] XR HUMERUS LT MIN 2Von 12-24 [...] by: KELL DELANEY Date: 2022-12-24 21:03 Normal [facility] CBC AUTO DIFFon 11-04-2022 BASO # 0.1 103/ul Normal 0.0-0.1 [facility] Comment on above: Performed By: #### B MP, CMREP, LIPID #### [facility] [address] [address] [address] Jeimy Tenorio Basophils/100 WBC (Bld) 0.9 % Normal 0.2-2.0 [facility] Comment on above: Performed By: #### B MP, CMREP, LIPID #### [facility] [address] [address] [address] Jeimy Tenorio EO # 0.3 103/ul Normal 0.0-0.[address] [facility] Comment on above: Performed By: #### B MP, CMREP, LIPID #### [facility] [address] [place] [address] Dr. Jeimy Tenorio Eosinophils/100 WBC (Bld) 5.2 % Normal 0.9-7.[address] [facility] Comment on above: Performed By: #### B MP, CMREP, LIPID #### [facility] [address] [place] [address] Dr. Jeimy Tenorio Erythrocyte distribution width (RBC) [Ratio] 12.9 % Normal 11.0-15.[address] [facility] Comment on above: Performed By: #### B MP, CMREP, LIPID #### [facility] [address] [place] [address] Dr. Jeimy Tenorio Hematocrit (Bld) [Volume fraction] 39.5 % Critically low 42.0-54.[address] [facility] Comment on above: Performed By: #### B MP, CMREP, LIPID #### [facility] [address] [place] [address] Dr. Jeimy Tenorio Hemoglobin (Bld) [Mass/Vol] 13.1 g/dL Critically low 14.0-18.0 [facility] Comment on above: Performed By: #### B MP, CMREP, LIPID #### [facility] [address] [place] [address] Dr. Jeimy Tenorio IG # 0.03 10e3/ul Normal 0.00-0.[address] [facility] Comment on above: Performed By: #### B MP, CMREP, LIPID #### [facility] [address] [place] [address] Dr. Jeimy Tenorio IG % 0.5 % Normal 0.0-0.[address] [facility] Comment on above: Performed By: #### B MP, CMREP, LIPID #### [facility] [address] [place] [address] Dr. Jeimy Tenorio LYMPH # 1.5 103/ul Normal 1.2-3.[address] [facility] Comment on above: Performed By: #### B MP, CMREP, LIPID #### [facility] [address] [place] [address] Dr. Jeimy Tenorio Lymphocytes/100 WBC (Bld) 22.6 % Normal 20.5-60.0 [facility] Comment on above: Performed By: #### B MP, CMREP, LIPID #### [facility] [address] [place] [address] Dr. Jeimy Tenorio MANUAL DIFF REQ NO Normal [facility] Comment on above: Performed By: #### B MP, CMREP, LIPID #### [facility] [address] [place] [address] Dr. Jeimy Tenorio MCH (RBC) [Entitic mass] 32.8 pg Normal 25.9-34.0 [facility] Comment on above: Performed By: #### B MP, CMREP, LIPID #### [facility] [address] [place] [address] Dr. Jeimy Tenorio MCHC (RBC) [Mass/Vol] 33.2 g/dL Normal 29.9-35.2 [facility] Comment on above: Performed By: #### B MP, CMREP, LIPID #### [facility] [address] [place] [address] Dr. Jeimy Tenorio MCV (RBC) [Entitic vol] 99.0 fL Critically high 80.0-94.0 [facility] Comment on above: Performed By: #### B MP, CMREP, LIPID #### [facility] [address] [place] [address] Dr. Jeimy Tenorio MONO # 0.7 103/ul Normal 0.3-0.8 [facility] Comment on above: Performed By: #### B MP, CMREP, LIPID #### [facility] [address] [place] [address] Dr. Jeimy Tenorio Monocytes/100 WBC (Bld) 10.6 % Normal 1.7-12.0 [facility] Comment on above: Performed By: #### B MP, CMREP, LIPID #### [facility] [address] [place] [address] Dr. Jeimy Tenorio NEUT # 4.0 103/ul Normal 1.4-6.[address] [facility] Comment on above: Performed By: #### B MP, CMREP, LIPID #### [facility] [address] [address] [address] Jeimy Tenorio Neutrophils/100 WBC (Bld) 60.2 % Normal 43.0-75.0 [facility] Comment on above: Performed By: #### B MP, CMREP, LIPID #### [facility] [address] [address] [address] Jeimy Tenorio Platelet mean volume (Bld) [Entitic vol] 9.7 fL Normal 9.5-13.5 [facility] Comment on above: Performed By: #### B MP, CMREP, LIPID #### [facility] [address] [place] [address] Dr. Jeimy Tenorio PLT 176 103/ul Normal 150-450 [facility] Comment on above: Performed By: #### B MP, CMREP, LIPID #### [facility] [address] [place] [address] Dr. Jeimy Tenorio RBC 3.99 106/ul Critically low 4.70-6.10 [facility] Comment on above: Performed By: #### B MP, CMREP, LIPID #### [facility] [address] [place] [address] Dr. Jeimy Tenorio WBC 6.6 103/ul Normal 4.0-11.[address] [facility] Comment on above: Performed By: #### B MP, CMREP, LIPID #### [facility] [address] [place] [address] HEAD WO CONon [...] ALEJANDRO PINEDA Date: 2022-11-04 14:[address] [facility] Covid-[facility]on 10-21 SARS-CoV-2 (COVID-19) RNA ALEX+probe Ql (Unsp spec) Not detected Normal NOT DETECTED [facility] Comment on above: Result Comment: This test is not yet approved or cleared by the [place] FDA. When there are no FDA-approved or cleared tests available, and other criteria are met, FDA can make tests available under an emergency access mechanism called an Emergency Use Authorization (EUA). The EUA for this test is supported by the [employer] Att[employer] of Health and Human Service's (HHS's) declaration [...] By: #### B MP, CMREP, LIPID #### [facility] [address] [place] [address] Dr. Jeimy Tenorio INFLUENZA A AND B AGon 11-04 [facility]OW Normal [facility] Comment on above: Result Comment: Nega tive for Flu A protein angiten. Infection due to Flu A cannot be ruled out. Flu A angiten in the sample may be below the detection limit of the test. Performed By: #### I NFLUAB #### [facility] [address] [place] [address] Dr. Jeimy Tenorio INFLUBNEG SEE BELOW Normal [facility] Comment on above: Result Comment: Nega tive for Flu B protein antigen. Infection due to Flu B cannot be ruled out. Flu B antigen in the sample may be below the detection limit of the test. Performed By: #### I NFLUAB #### [facility] [address] [place] [address] Dr. Jeimy Tenorio INFLUENZA A AG Negative Normal NEGATIVE SEE COMMENT [facility] Comment on above: Performed By: #### I NFLUAB #### [facility] [address] [place] [address] Dr. Jeimy Tenorio INFLUENZA B AG Negative Normal NEGATIVE SEE COMMENT [facility] Comment on above: Performed By: #### I NFLUAB #### [facility] [address] [place] [address] Dr. Jeimy Tenorio INTERNAL CONTROLS Within Normal Limits Normal Wi thin Normal Limits [facility] Comment on above: Performed By: #### I NFLUAB #### [facility] [address] [place] [address] Dr. Jeimy Tenorio PROF CHEM 8 (BAS METB)on Anion gap [Moles/Vol] 9.7 mmol/L Normal [facility] Comment on above: Performed By: #### C BC #### [facility] [address] [place] [address] Dr. Jeimy Tenorio Calcium [Mass/Vol] 8.0 mg/dL Critically low 8.5-10.[address] [facility] Comment on above: Performed By: #### C BC #### [facility] [address] [place] [address] Dr. Jeimy Tenorio Chloride [Moles/Vol] 104 mmol/L Normal 98-107 [facility] Comment on above: Performed By: #### C BC #### [facility] [address] [address] [address] Jeimy Tenorio CO2 [Moles/Vol] 31.1 mmol/L Normal 21.0-32.0 The [facility] Comment on above: Performed By: #### C BC #### [facility] [address] [address] [address] Jeimy Tenorio Creatinine [Mass/Vol] 0.75 mg/dL Normal 0.70-1.[address] [facility] Comment on above: Performed By: #### C BC #### [facility] [address] [address] [address] Jeimy Tenorio EGFR-AF TRINIDADIAN >60 Normal >=60 [facility] Comment on above: Performed By: #### C BC #### [facility] [address] [place] [address] Dr. Jeimy Tenorio EGFR-NON AF TRINIDADIAN >60 Normal >=[address] [facility] Comment on above: Performed By: #### C BC #### [facility] [address] [place] [address] Dr. Jeimy Tenorio Glucose [Mass/Vol] 76 mg/dL Normal 74-106 [facility] Comment on above: Performed By: #### C BC #### [facility] [address] [place] [address] Dr. Jeimy Tenorio Potassium [Moles/Vol] 3.8 mmol/L Normal 3.5-5.[address] [facility] Comment on above: Performed By: #### C BC #### [facility] [address] [place] [address] Dr. Jeimy Tenorio Sodium [Moles/Vol] 141 mmol/L Normal 136-145 [facility] Comment on above: Performed By: #### C BC #### [facility] [address] [place] [address] Dr. Jeimy Tenorio Urea nitrogen [Mass/Vol] 12.0 mg/dL Normal 7.0-18.[address] [facility] Comment on above: Performed By: #### C BC #### [facility] [address] [place] [address] Dr. Jeimy Tenorio Urea nitrogen/Creatinine [Mass ratio] 16.0 mg/mg Normal [facility] Comment on above: Performed By: #### C BC #### [facility] [address] [place] [address] Dr. Jeimy Tenorio TROPONIN, HIGH SENSITIVITYon 11-04-2022 HSTROP 5.8 pg/mL Normal 4.0-76.1 [facility] Comment on above: Result Comment: CUT- OFF POINTS HAVE BEEN ESTABLISHED BASED ON THE FOURTH UNIVERSAL DEFINITIONS OF MYOCARDIAL INFARCTION. THE UPPER REFERENCE LIMIT (URL) OF TROPONIN, DEFINED THE 99TH PERCENTILE OF cTnI DISTRIBUTION IN A REFERENCE POPULATION, HAS BEEN CONFIRMED THE DECISION THRESHOLD FOR MS DIAGNOSIS. Performed By: #### C BC #### [facility] [address] [place] [address] Dr. Jeimy Tenorio CBC AUTO DIFFon 09-29-2022 BASO # 0.1 103/ul Normal 0.0-0.1 [facility] Comment on above: Performed By: #### B MP, CMREP, LIPID #### [facility] [address] [place] [address] Dr. Jeimy Tenorio Basophils/100 WBC (Bld) 1.2 % Normal 0.2-2.0 [facility] Comment on above: Performed By: #### B MP, CMREP, LIPID #### [facility] [address] [place] [address] Dr. Jeimy Tenorio EO # 0.3 103/ul Normal 0.0-0.[address] [facility] Comment on above: Performed By: #### B MP, CMREP, LIPID #### [facility] [address] [place] [address] Dr. Jeimy Tenorio Eosinophils/100 WBC (Bld) 4.9 % Normal 0.9-7.[address] [facility] Comment on above: Performed By: #### B MP, CMREP, LIPID #### [facility] [address] [place] [address] Dr. Jeimy Tenorio Erythrocyte distribution width (RBC) [Ratio] 13.2 % Normal 11.0-15.[address] [facility] Comment on above: Performed By: #### B MP, CMREP, LIPID #### [facility] [address] [place] [address] Dr. Jeimy Tenorio Hematocrit (Bld) [Volume fraction] 42.3 % Normal 42.0-54.0 [facility] Comment on above: Performed By: #### B MP, CMREP, LIPID #### [facility] [address] [place] [address] Dr. Jeimy Tenorio Hemoglobin (Bld) [Mass/Vol] 13.8 g/dL Critically low 14.0-18.0 [facility] Comment on above: Performed By: #### B MP, CMREP, LIPID #### [facility] [address] [place] [address] Dr. Jeimy Tenorio IG # 0.02 10e3/ul Normal 0.00-0.03 [facility] Comment on above: Performed By: #### B MP, CMREP, LIPID #### [facility] [address] [place] [address] Dr. Jeimy Tenorio IG % 0.3 % Normal 0.0-0.5 [facility] Comment on above: Performed By: #### B MP, CMREP, LIPID #### [facility] [address] [place] [address] Dr. Jeimy Tenorio LYMPH # 1.3 103/ul Normal 1.2-3.8 [facility] Comment on above: Performed By: #### B MP, CMREP, LIPID #### [facility] [address] [place] [address] Dr. Jeimy Tenorio Lymphocytes/100 WBC (Bld) 19.5 % Critically low 20.5-60.0 [facility] Comment on above: Performed By: #### B MP, CMREP, LIPID #### [facility] [address] [place] [address] Dr. Jeimy Tenorio MANUAL DIFF REQ NO Normal [facility] Comment on above: Performed By: #### B MP, CMREP, LIPID #### [facility] [address] [place] [address] Dr. Jeimy Tenorio MCH (RBC) [Entitic mass] 32.9 pg Normal 25.9-34.[address] [facility] Comment on above: Performed By: #### B MP, CMREP, LIPID #### [facility] [address] [place] [address] Dr. Jeimy Tenorio MCHC (RBC) [Mass/Vol] 32.6 g/dL Normal 29.9-35.[address] [facility] Comment on above: Performed By: #### B MP, CMREP, LIPID #### [facility] [address] [place] [address] Dr. Jeimy Tenroio MCV (RBC) [Entitic vol] 100.7 fL Critically high 80.0-94.[address] [facility] Comment on above: Performed By: #### B MP, CMREP, LIPID #### [facility] [address] [place] [address] Dr. Jeimy Tenorio MONO # 0.7 103/ul Normal 0.3-0.[address] [facility] Comment on above: Performed By: #### B MP, CMREP, LIPID #### [facility] [address] [place] [address] Dr. Jeimy Tenorio Monocytes/100 WBC (Bld) 9.9 % Normal 1.7-12.[address] [facility] Comment on above: Performed By: #### B MP, CMREP, LIPID #### [facility] [address] [place] [address] Dr. Jeimy Tenorio NEUT # 4.3 103/ul Normal 1.4-6.[address] [facility] Comment on above: Performed By: #### B MP, CMREP, LIPID #### [facility] [address] [place] [address] Dr. Jeimy Tenorio Neutrophils/100 WBC (Bld) 64.2 % Normal 43.0-75.[address] [facility] Comment on above: Performed By: #### B MP, CMREP, LIPID #### [facility] [address] [address] Dr. Jeimy Tenorio Platelet mean volume (Bld) [Entitic vol] 10.4 fL Normal 9.5-13.[address] [facility] Comment on above: Performed By: #### B MP, CMREP, LIPID #### [facility] [address] [address] [address] Jeimy Tenorio PLT 209 103/ul Normal 150-450 [facility] Comment on above: Performed By: #### B MP, CMREP, LIPID #### [facility] [address] [address] [address] Jeimy Tenorio RBC 4.20 106/ul Critically low 4.70-6.10 [facility] Comment on above: Performed By: #### B MP, CMREP, LIPID #### [facility] [address] [address] [address] Jeimy Tenorio WBC 6.7 103/ul Normal 4.0-11.0 [facility] Comment on above: Performed By: #### B MP, CMREP, LIPID #### [facility] [address] [place] [address] Dr. Jeimy Tenorio DILANTINon 09-29-2022 Phenytoin [Mass/Vol] 23.7 ug/mL Critically high 10.0-20.0 [facility] Comment on above: Performed By: #### C BC #### [facility] [address] [place] [address] Dr. Jeimy Tenorio GLYCOHEMOGLOBIN A1Con 2021 ADA RECOMMENDATION SEE BELOW Normal [facility] Comment on above: Result Comment: ADA RECOMMENDED LIMIT 4.0 - 6.0 ADA THERAPEUTIC TARGET < 7.0 ACTION SUGGESTED > 7.0 Performed By: #### A 1C #### [facility] [address] [place] [address] Dr. Jeimy Tenorio Glucose [Mass/Vol] 105 mg/dL Normal [facility] Comment on above: Performed By: #### A 1C #### [facility] [address] [place] [address] Dr. Jeimy Tenorio HbA1c (Bld) [Mass fraction] 5.3 % Normal 4.5-6.2 [facility] Comment on above: Performed By: #### A 1C #### [facility] [address] [place] [address] Dr. Jeimy Tenorio LIPID PROFILEon 09-29-2022 CHOL-HDL RATIO NORM SEE BELOW Normal [facility] Comment on above: Result Comment: 3.3 - 4.4 LOW RISK 4.4 - 7.1 AVERAGE RISK 7.1 - 11.0 MODERATE RISK >11.0 HIGH RISK Performed By: #### B MP, CMREP, LIPID #### [facility] [address] [address] [address] Jeimy Tenorio Cholesterol [Mass/Vol] 178 mg/dL Normal <=200 [facility] Comment on above: Performed By: #### B MP, CMREP, LIPID #### [facility] [address] [address] [address] Jeimy Tenorio Cholesterol in HDL [Mass/Vol] 56 mg/dL Normal 40-60 [facility] Comment on above: Performed By: #### B MP, CMREP, LIPID #### [facility] [address] [place] [address] Dr. Jeimy Tenorio Cholesterol in LDL [Mass/Vol] 86.8 mg/dL Normal [facility] Comment on above: Performed By: #### B MP, CMREP, LIPID #### [facility] [address] [address] [address] Jeimy Tenorio Cholesterol.total/Ch olesterol in HDL [Mass ratio] 3.2 {ratio} Normal [facility] Comment on above: Performed By: #### B MP, CMREP, LIPID #### [facility] [address] [place] [address] Dr. Jeimy Tenorio HDL NORMAL > or = 60 mg/dl - LO W CARDIOVASCULAR RISK <40 mg/dl - HIGH CARDIOVASCULAR RISK Normal [facility] Comment on above: Performed By: #### B MP, CMREP, LIPID #### [facility] [address] [place] [address] Dr. Jeimy Tenorio LDL CALC NORMAL SEE BELOW Normal [facility] Comment on above: Result Comment: <100 mg/dl OPTIMAL 100 - 129 mg/dl NEAR OR ABOVE OPTIMAL 130 - 159 mg/dl BORDERLINE HIGH 160 - 189 mg/dl HIGH >190 mg/dl VERY HIGH Performed By: #### B MP, CMREP, LIPID #### [facility] [address] [address] [address] Jeimy Tenorio Triglyceride [Mass/Vol] 176 mg/dL Critically high <=150 [facility] Comment on above: Performed By: #### B MP, CMREP, LIPID #### [facility] [address] [address] [address] Jeimy Tenorio VLDL CALC 35.2 mg/dL Normal [facility] Comment on above: Performed By: #### B MP, CMREP, LIPID #### [facility] [address] [address] [address] Jeimy Tenorio LIVER PROFILEon 09-29-2022 Albumin [Mass/Vol] 3.5 g/dL Normal 3.4-5.0 [facility] Comment on above: Performed By: #### B MP, CMREP, LIPID #### [facility] [address] [address] [address] Jeimy Tenorio Albumin/Globulin [Mass ratio] 0.8 {ratio} Normal [facility] Comment on above: Performed By: #### B MP, CMREP, LIPID #### [facility] [address] [address] [address] Jeimy Tenorio ALP [Catalytic activity/Vol] 139 U/L Critically high 46-116 [facility] Comment on above: Performed By: #### B MP, CMREP, LIPID #### [facility] [address] [address] [address] Jeimy Tenorio ALT [Catalytic activity/Vol] 25 U/L Normal 16-63 [facility] Comment on above: Performed By: #### B MP, CMREP, LIPID #### [facility] [address] [address] [address] Jeimy Tenorio AST [Catalytic activity/Vol] 23 U/L Normal 15-37 [facility] Comment on above: Performed By: #### B MP, CMREP, LIPID #### [facility] [address] [address] [address] Jeimy Tenorio BILI, CONJUGATED 0.0 mg/dL Normal 0.0-0.2 [facility] Comment on above: Performed By: #### B MP, CMREP, LIPID #### [facility] [address] [place] [address] Dr. Jeimy Tenorio Bilirubin [Mass/Vol] 0.3 mg/dL Normal 0.2-1.0 [facility] Comment on above: Performed By: #### B MP, CMREP, LIPID #### [facility] [address] [place] [address] Dr. Jeimy Tenorio Globulin (S) [Mass/Vol] 4.3 g/dL Normal [facility] Comment on above: Performed By: #### B MP, CMREP, LIPID #### [facility] [address] [place] [address] Dr. Jeimy Tenorio Protein [Mass/Vol] 7.8 g/dL Normal 6.4-8.2 [facility] Comment on above: Performed By: #### B MP, CMREP, LIPID #### [facility] [address] [place] [address] Dr. Jeimy Tenorio PROF CHEM 8 (BAS METB)on Anion gap [Moles/Vol] 8.7 mmol/L Normal [facility] Comment on above: Performed By: #### B MP, CMREP, LIPID #### [facility] [address] [place] [address] Dr. Jeimy Tenorio Calcium [Mass/Vol] 8.7 mg/dL Normal 8.5-10.1 [facility] Comment on above: Performed By: #### B MP, CMREP, LIPID #### [facility] [address] [place] [address] Dr. Jeimy Tenorio Chloride [Moles/Vol] 104 mmol/L Normal 98-[address] [facility] Comment on above: Performed By: #### B MP, CMREP, LIPID #### [facility] [address] [place] [address] Dr. Jeimy Tenorio CO2 [Moles/Vol] 29.8 mmol/L Normal 21.0-32.0 [facility] Comment on above: Performed By: #### B MP, CMREP, LIPID #### [facility] [address] [address] [address] Jeimy Tenorio Creatinine [Mass/Vol] 0.76 mg/dL Normal 0.70-1.30 [facility] Comment on above: Performed By: #### B MP, CMREP, LIPID #### [facility] [address] [address] [address] Jeimy Tenorio EGFR-AF TRINIDADIAN >60 Normal >=60 [facility] Comment on above: Performed By: #### B MP, CMREP, LIPID #### [facility] [address] [address] [address] Jeimy Tenorio EGFR-NON AF TRINIDADIAN >60 Normal >=60 [facility] Comment on above: Performed By: #### B MP, CMREP, LIPID #### [facility] [address] [address] [address] Jeimy Tenorio Glucose [Mass/Vol] 95 mg/dL Normal 74-106 [facility] Comment on above: Performed By: #### B MP, CMREP, LIPID #### [facility] [address] [address] [address] Jeimy Tenorio Potassium [Moles/Vol] 4.5 mmol/L Normal 3.5-5.1 [facility] Comment on above: Performed By: #### B MP, CMREP, LIPID #### [facility] [address] [address] [address] Jeimy Tenorio Sodium [Moles/Vol] 138 mmol/L Normal 136-145 [facility] Comment on above: Performed By: #### B MP, CMREP, LIPID #### [facility] [address] [address] [address] Jeimy Tenorio Urea nitrogen [Mass/Vol] 18.0 mg/dL Normal 7.0-18.0 [facility] Comment on above: Performed By: #### B MP, CMREP, LIPID #### [facility] [address] [address] [address] Jeimy Tenorio Urea nitrogen/Creatinine [Mass ratio] 23.7 mg/mg Normal [facility] Comment on above: Performed By: #### B MP, CMREP, LIPID #### [facility] [address] [address] [address] Jeimy Tenorio TSHon 09-29-2022 TSH 1.694 uIU/mL Normal 0.358-3.740 [facility] Comment on above: Performed By: #### B MP, CMREP, LIPID #### [facility] [address] [place] [address] Dr. Jeimy Tenorio CARDIAC SAWYER 3-6on 2 CK [Catalytic activity/Vol] 47 U/L Normal 39-[address] [facility] Comment on above: Performed By: #### B MP, CMREP, LIPID #### [facility] [address] [place] [address] Dr. Jeimy Tenorio CK.MB [Mass/Vol] 0.77 ng/mL Normal <=3.60 [facility] Comment on above: Performed By: #### B MP, CMREP, LIPID #### [facility] [address] [place] [address] Dr. Jeimy Tenorio HSTROP 6.9 pg/mL Normal 4.0-76.[address] [facility] Comment on above: Result Comment: CUT- OFF POINTS HAVE BEEN ESTABLISHED BASED ON THE FOURTH UNIVERSAL DEFINITIONS OF MYOCARDIAL INFARCTION. THE UPPER REFERENCE LIMIT (URL) OF TROPONIN, DEFINED THE 99TH PERCENTILE OF cTnI DISTRIBUTION IN A REFERENCE POPULATION, HAS BEEN CONFIRMED THE DECISION THRESHOLD FOR MS DIAGNOSIS. Performed By: #### B MP, CMREP, LIPID #### [facility] [address] [place] [address] Dr. Jeimy Tenorio CK [Catalytic activity/Vol] 53 U/L Normal 39-[address] [facility] Comment on above: Performed By: #### C BC #### [facility] [address] [place] [address] Dr. Jeimy Tenorio CK.MB [Mass/Vol] 0.80 ng/mL Normal <=3.60 [facility] Comment on above: Performed By: #### C BC #### [facility] [address] [place] [address] Dr. Jeimy Tenorio HSTROP 6.2 pg/mL Normal 4.0-76.1 [facility] Comment on above: Result Comment: CUT- OFF POINTS HAVE BEEN ESTABLISHED BASED ON THE FOURTH UNIVERSAL DEFINITIONS OF MYOCARDIAL INFARCTION. THE UPPER REFERENCE LIMIT (URL) OF TROPONIN, DEFINED THE 99TH PERCENTILE OF cTnI DISTRIBUTION IN A REFERENCE POPULATION, HAS BEEN CONFIRMED THE DECISION THRESHOLD FOR MS DIAGNOSIS. Performed By: #### C BC #### [facility] [address] [place] [address] Dr. Jeimy Tenorio CBC AUTO DIFFon 06-12-2022 BASO # 0.1 103/ul Normal 0.0-0.1 [facility] Comment on above: Performed By: #### C BC #### [facility] [address] [place] [address] Dr. Jeimy Tenorio Basophils/100 WBC (Bld) 0.9 % Normal 0.2-2.0 [facility] Comment on above: Performed By: #### C BC #### [facility] [address] [place] [address] Dr. Jeimy Tenorio EO # 0.3 103/ul Normal 0.0-0.7 [facility] Comment on above: Performed By: #### C BC #### [facility] [address] [place] [address] Dr. Jeimy Tenorio Eosinophils/100 WBC (Bld) 5.2 % Normal 0.9-7.0 [facility] Comment on above: Performed By: #### C BC #### [facility] [address] [place] [address] Dr. Jeimy Tenorio Erythrocyte distribution width (RBC) [Ratio] 13.0 % Normal 11.0-15.0 [facility] Comment on above: Performed By: #### C BC #### [facility] [address] [place] [address] Dr. Jeimy Tenorio Hematocrit (Bld) [Volume fraction] 39.1 % Critically low 42.0-54.0 [facility] Comment on above: Performed By: #### C BC #### [facility] [address] [place] [address] Dr. Jeimy Tenorio Hemoglobin (Bld) [Mass/Vol] 13.2 g/dL Critically low 14.0-18.0 [facility] Comment on above: Performed By: #### C BC #### [facility] [address] [place] [address] Dr. Jeimy Tenorio IG # 0.03 10e3/ul Normal 0.00-0.03 [facility] Comment on above: Performed By: #### C BC #### [facility] [address] [place] [address] Dr. Jeimy Tenorio IG % 0.5 % Normal 0.0-0.5 [facility] Comment on above: Performed By: #### C BC #### [facility] [address] [place] [address] Dr. Jeimy Tenorio LYMPH # 1.7 103/ul Normal 1.2-3.8 [facility] Comment on above: Performed By: #### C BC #### [facility] [address] [place] [address] Dr. Jeimy Tenorio Lymphocytes/100 WBC (Bld) 26.0 % Normal 20.5-60.0 [facility] Comment on above: Performed By: #### C BC #### [facility] [address] [place] [address] Dr. Jeimy Tenorio MANUAL DIFF REQ NO Normal [facility] Comment on above: Performed By: #### C BC #### [facility] [address] [place] [address] Dr. Jeimy Tenorio MCH (RBC) [Entitic mass] 33.2 pg Normal 25.9-34.0 [facility] Comment on above: Performed By: #### C BC #### [facility] [address] [place] [address] Dr. Jeimy Tenorio MCHC (RBC) [Mass/Vol] 33.8 g/dL Normal 29.9-35.2 [facility] Comment on above: Performed By: #### C BC #### [facility] [address] [place] [address] Dr. Jeimy Tenorio MCV (RBC) [Entitic vol] 98.5 fL Critically high 80.0-94.0 [facility] Comment on above: Performed By: #### C BC #### [facility] [address] [place] [address] Dr. Jeimy Tenorio MONO # 0.8 103/ul Normal 0.3-0.8 [facility] Comment on above: Performed By: #### C BC #### [facility] [address] [place] [address] Dr. Jeimy Tenorio Monocytes/100 WBC (Bld) 12.2 % Critically high 1.7-12.0 [facility] Comment on above: Performed By: #### C BC #### [facility] [address] [place] [address] Dr. Jeimy Tenorio NEUT # 3.6 103/ul Normal 1.4-6.5 [facility] Comment on above: Performed By: #### C BC #### [facility] [address] [place] [address] Dr. Jeimy Tenorio Neutrophils/100 WBC (Bld) 55.2 % Normal 43.0-75.0 [facility] Comment on above: Performed By: #### C BC #### [facility] [address] [place] [address] Dr. Jeimy Tenorio Platelet mean volume (Bld) [Entitic vol] 9.9 fL Normal 9.5-13.5 [facility] Comment on above: Performed By: #### C BC #### [facility] [address] [place] [address] Dr. Jeimy Tenorio PLT 174 103/ul Normal 150-[address] [facility] Comment on above: Performed By: #### C BC #### [facility] [address] [place], [place] [id number] Dr. Jeimy Tenorio RBC 3.97 106/ul Critically low 4.70-6.10 [facility] Comment on above: Performed By: #### C BC #### [facility] [address] [place] [address] Dr. Jeimy Tenorio WBC 6.5 103/ul Normal 4.0-11.[address] [facility] Comment on above: Performed By: #### C #### [facility] [address] [address] [address] Jeimy Tenorio CTA CHEST WO W [...] MAMIE SAID Date: 2022-06-12 00:[address] [facility] Covid-19 PCR (CVDTBH)on 05-22 SARS-CoV-2 (COVID-19) RNA ALEX+probe Ql (Unsp spec) Not detected Normal NOT DETECTED [facility] Comment on above: Result Comment: When diagnostic [...] for this test is supported by the [place] of [employer] and Human Service's declaration that [...] By: #### B MP, CMREP, LIPID #### [facility] [address] [place] [address] Dr. Jeimy Tenorio ER URINE PROFILEon 2 Bilirubin Ql (U) Negative Normal NEGATIVE [facility] Comment on above: Performed By: #### E RUR #### [facility] [address] [place] [address] Dr. Jeimy Tenorio Clarity (U) CLEAR Normal CLEAR [facility] Comment on above: Performed By: #### E RUR #### [facility] [address] [place] [address] Dr. Jeimy Tenorio Color (U) LT. YELLOW Normal YELLOW [facility] Comment on above: Performed By: #### E RUR #### [facility] [address] [place] [address] Dr. [facility] mic[facility]opic examination will be performed if indicated. Normal [facility] Comment on above: Performed By: #### E RUR #### [facility] [address] [place] [address] Dr. Jeimy Tenorio Glucose Ql (U) Negative Normal NEGATIVE [facility] Comment on above: Performed By: #### E RUR #### [facility] [address] [place] [address] Dr. Jeimy Tenorio Hemoglobin Ql (U) Negative Normal NEGATIVE [facility] Comment on above: Performed By: #### E RUR #### [facility] [address] [place], [place] [id number] Dr. Jeimy Tenorio Ketones Ql (U) TRACE Abnormal NEGATIVE [facility] Comment on above: Performed By: #### E RUR #### [facility] [address] [place] [address] Dr. Jeimy Tenorio LEUKOCYTES Negative Normal NEGATIVE [facility] Comment on above: Performed By: #### E RUR #### [facility] [address] [place] [address] Dr. Jeimy Tenorio Nitrite Ql (U) Negative Normal NEGATIVE [facility] Comment on above: Performed By: #### E RUR #### [facility] [address] [place] [address] Dr. Jeimy Tenorio pH (U) 5.5 [pH] Normal 5-9 [facility] Comment on above: Performed By: #### E RUR #### [facility] [address] [place] [address] Dr. Jeimy Tenorio SPEC GRAVITY 1.010 Normal 1.005-<=1.025 [facility] Comment on above: Performed By: #### E RUR #### [facility] [address] [place] [address] Dr. Jeimy Tenorio UA PROTEIN Negative Normal NEGATIVE/ TRACE [facility] Comment on above: Performed By: #### E RUR #### [facility] [address] [place] [address] Dr. Jeimy Tenorio UR MICRO IND NOT INDICATED Normal [facility] Comment on above: Performed By: #### E RUR #### [facility] [address] [place] [address] Dr. Jeimy Tenorio Urobilinogen Qn (U) 0.2 {Raphael'U}/dL Normal 0.2 - 1. 0 [facility] Comment on above: Performed By: #### E RUR #### [facility] [address] [place] [address] Dr. Jeimy Tenorio GLYCOHEMOGLOBIN A1Con 2021 ADA RECOMMENDATION SEE BELOW Normal [facility] Comment on above: Result Comment: ADA RECOMMENDED LIMIT 4.0 - 6.0 ADA THERAPEUTIC TARGET < 7.0 ACTION SUGGESTED > 7.0 Performed By: #### C BC #### [facility] [address] [address] [address] Jeimy Tenorio Glucose [Mass/Vol] 103 mg/dL Normal [facility] Comment on above: Performed By: #### C BC #### [facility] [address] [address] [address] Jeimy Tenorio HbA1c (Bld) [Mass fraction] 5.2 % Normal 4.5-6.2 [facility] Comment on above: Performed By: #### C BC #### [facility] [address] [place] [address] Dr. Jeimy Tenorio LIPID PROFILEon 06-12-2022 CHOL-HDL RATIO NORM SEE BELOW Normal [facility] Comment on above: Result Comment: 3.3 - 4.4 LOW RISK 4.4 - 7.1 AVERAGE RISK 7.1 - 11.0 MODERATE RISK >11.0 HIGH RISK Performed By: #### B MP, CMREP, LIPID #### [facility] [address] [place] [address] Dr. Jeimy Tenorio Cholesterol [Mass/Vol] 142 mg/dL Normal <=200 [facility] Comment on above: Performed By: #### B MP, CMREP, LIPID #### [facility] [address] [place] [address] Dr. Jeimy Tenorio Cholesterol in HDL [Mass/Vol] 49 mg/dL Normal 40-60 [facility] Comment on above: Performed By: #### B MP, CMREP, LIPID #### [facility] [address] [place] [address] Dr. Jeimy Tenorio Cholesterol in LDL [Mass/Vol] 64.6 mg/dL Normal [facility] Comment on above: Performed By: #### B MP, CMREP, LIPID #### [facility] [address] [place] [address] Dr. Jeimy Tenorio Cholesterol.total/Ch olesterol in HDL [Mass ratio] 2.9 {ratio} Normal [facility] Comment on above: Performed By: #### B MP, CMREP, LIPID #### [facility] [address] [address] [address] Jeimy Tenorio HDL NORMAL > or = 60 mg/dl - LO W CARDIOVASCULAR RISK <40 mg/dl - HIGH CARDIOVASCULAR RISK Normal [facility] Comment on above: Performed By: #### B MP, CMREP, LIPID #### [facility] [address] [address] [address] Jeimy Tenorio LDL CALC NORMAL SEE BELOW Normal [facility] Comment on above: Result Comment: <100 mg/dl OPTIMAL 100 - 129 mg/dl NEAR OR ABOVE OPTIMAL 130 - 159 mg/dl BORDERLINE HIGH 160 - 189 mg/dl HIGH >190 mg/dl VERY HIGH Performed By: #### B MP, CMREP, LIPID #### [facility] [address] [address] [address] Jeimy Tenorio Triglyceride [Mass/Vol] 142 mg/dL Normal <=150 [facility] Comment on above: Performed By: #### B MP, CMREP, LIPID #### [facility] [address] [address] [address] Jeimy Tenorio VLDL CALC 28.4 mg/dL Normal [facility] Comment on above: Performed By: #### B MP, CMREP, LIPID #### [facility] [address] [address] [address] Jeimy Tenorio PROF CHEM 8 (BAS METB)on Anion gap [Moles/Vol] 10.1 mmol/L Normal [facility] Comment on above: Performed By: #### B MP, CMREP, LIPID #### [facility] [address] [place] [address] Dr. Jeimy Tenorio Calcium [Mass/Vol] 8.0 mg/dL Critically low 8.5-10.1 [facility] Comment on above: Performed By: #### B MP, CMREP, LIPID #### [facility] [address] [place] [address] Dr. Jeimy Tenorio Chloride [Moles/Vol] 104 mmol/L Normal 98-107 [facility] Comment on above: Performed By: #### B MP, CMREP, LIPID #### [facility] [address] [address] [address] Jeimy Tenorio CO2 [Moles/Vol] 27.0 mmol/L Normal 21.0-32.0 [facility] Comment on above: Performed By: #### B MP, CMREP, LIPID #### [facility] [address] [address] [address] Jeimy Tenorio Creatinine [Mass/Vol] 0.79 mg/dL Normal 0.70-1.30 [facility] Comment on above: Performed By: #### B MP, CMREP, LIPID #### [facility] [address] [address] [address] Jeimy Tenorio EGFR-AF TRINIDADIAN >60 Normal >=60 [facility] Comment on above: Performed By: #### B MP, CMREP, LIPID #### [facility] [address] [place] [address] Dr. Jeimy Tenorio EGFR-NON AF TRINIDADIAN >60 Normal >=60 [facility] Comment on above: Performed By: #### B MP, CMREP, LIPID #### [facility] [address] [address] [address] Jeimy Tenorio Glucose [Mass/Vol] 101 mg/dL Normal 74-106 [facility] Comment on above: Performed By: #### B MP, CMREP, LIPID #### [facility] [address] [place] [address] Dr. Jeimy Tenorio Potassium [Moles/Vol] 4.1 mmol/L Normal 3.5-5.1 [facility] Comment on above: Performed By: #### B MP, CMREP, LIPID #### [facility] [address] [address] [address] Jeimy Tenorio Sodium [Moles/Vol] 137 mmol/L Normal 136-145 [facility] Comment on above: Performed By: #### B MP, CMREP, LIPID #### [facility] [address] [address] [address] Jeimy Tenorio Urea nitrogen [Mass/Vol] 15.0 mg/dL Normal 7.0-18.0 [facility] Comment on above: Performed By: #### B MP, CMREP, LIPID #### [facility] [address] [address] [address] Jeimy Tenorio Urea nitrogen/Creatinine [Mass ratio] 19.0 mg/mg Normal [facility] Comment on above: Performed By: #### B MP, CMREP, LIPID #### [facility] [address] [address] [address] Jeimy Tenorio CARDIAC SAWYER ADMITon 022 CK [Catalytic activity/Vol] 50 U/L Normal 39-308 [facility] Comment on above: Performed By: #### C BC #### [facility] [address] [place] [address] Dr. Jeimy Tenorio CK.MB [Mass/Vol] 0.80 ng/mL Normal <=3.60 [facility] Comment on above: Performed By: #### C BC #### [facility] [address] [place] [address] Dr. Jeimy Tenorio HSTROP 5.2 pg/mL Normal 4.0-76.[address] [facility] Comment on above: Result Comment: CUT- OFF POINTS HAVE BEEN ESTABLISHED BASED ON THE FOURTH UNIVERSAL DEFINITIONS OF MYOCARDIAL INFARCTION. THE UPPER REFERENCE LIMIT (URL) OF TROPONIN, DEFINED THE 99TH PERCENTILE OF cTnI DISTRIBUTION IN A REFERENCE POPULATION, HAS BEEN CONFIRMED THE DECISION THRESHOLD FOR MS DIAGNOSIS. Performed By: #### C BC #### [facility] [address] [place] [address] Dr. Jeimy Tenorio MAGALIE 41 ng/mL Normal 16-[address] [facility] Comment on above: Performed By: #### C BC #### [facility] [address] [place] [address] Dr. Jeimy Tenorio CBC AUTO DIFFon 06-11-2022 BASO # 0.0 103/ul Normal 0.0-0.1 [facility] Comment on above: Performed By: #### C BC #### [facility] [address] [place] [address] Dr. Jeimy Tenorio Basophils/100 WBC (Bld) 0.6 % Normal 0.2-2.0 [facility] Comment on above: Performed By: #### C BC #### [facility] [address] [place] [address] Dr. Jeimy Tenorio EO # 0.4 103/ul Normal 0.0-0.7 [facility] Comment on above: Performed By: #### C BC #### [facility] [address] [place] [address] Dr. Jeimy Tenorio Eosinophils/100 WBC (Bld) 4.9 % Normal 0.9-7.0 [facility] Comment on above: Performed By: #### C BC #### [facility] [address] [place] [address] Dr. Jeimy Tenorio Erythrocyte distribution width (RBC) [Ratio] 13.1 % Normal 11.0-15.0 [facility] Comment on above: Performed By: #### C BC #### [facility] [address] [place] [address] Dr. Jeimy Tenorio Hematocrit (Bld) [Volume fraction] 38.1 % Critically low 42.0-54.0 [facility] Comment on above: Performed By: #### C BC #### [facility] [address] [place] [address] Dr. Jeimy Tenorio Hemoglobin (Bld) [Mass/Vol] 13.0 g/dL Critically low 14.0-18.0 [facility] Comment on above: Performed By: #### C BC #### [facility] [address] [place] [address] Dr. Jeimy Tenorio IG # 0.02 10e3/ul Normal 0.00-0.03 [facility] Comment on above: Performed By: #### C BC #### [facility] [address] [place] [address] Dr. Jeimy Tenorio IG % 0.3 % Normal 0.0-0.[address] [facility] Comment on above: Performed By: #### C BC #### [facility] [address] [place] [address] Dr. Jeimy Tenorio LYMPH # 1.7 103/ul Normal 1.2-3.[address] [facility] Comment on above: Performed By: #### C BC #### [facility] [address] [place] [address] Dr. Jeimy Tenorio Lymphocytes/100 WBC (Bld) 22.9 % Normal 20.5-60.0 [facility] Comment on above: Performed By: #### C BC #### [facility] [address] [place] [address] Dr. Jeimy Tenorio MANUAL DIFF REQ NO Normal [facility] Comment on above: Performed By: #### C BC #### [facility] [address] [place] [address] Dr. Jeimy Tenorio MCH (RBC) [Entitic mass] 33.5 pg Normal 25.9-34.0 [facility] Comment on above: Performed By: #### C BC #### [facility] [address] [place] [address] Dr. Jeimy Tenorio MCHC (RBC) [Mass/Vol] 34.1 g/dL Normal 29.9-35.2 [facility] Comment on above: Performed By: #### C BC #### [facility] [address] [place] [address] Dr. Jeimy Tenorio MCV (RBC) [Entitic vol] 98.2 fL Critically high 80.0-94.0 [facility] Comment on above: Performed By: #### C BC #### [facility] [address] [place] [address] Dr. Jeimy Tenorio MONO # 0.8 103/ul Normal 0.3-0.[address] [facility] Comment on above: Performed By: #### C BC #### [facility] [address] [place] [address] Dr. Jeimy Tenorio Monocytes/100 WBC (Bld) 11.5 % Normal 1.7-12.[address] [facility] Comment on above: Performed By: #### C BC #### [facility] [address] [place] [address] Dr. Jeimy Tenorio NEUT # 4.3 103/ul Normal 1.4-6.[address] [facility] Comment on above: Performed By: #### C BC #### [facility] [address] [address] [address] Jeimy Tenorio Neutrophils/100 WBC (Bld) 59.8 % Normal 43.0-75.0 [facility] Comment on above: Performed By: #### C BC #### [facility] [address] [address] [address] Jeimy Tenorio Platelet mean volume (Bld) [Entitic vol] 9.8 fL Normal 9.5-13.5 [facility] Comment on above: Performed By: #### C BC #### [facility] [address] [address] [address] Jeimy Tenorio PLT 181 103/ul Normal 150-450 [facility] Comment on above: Performed By: #### C BC #### [facility] [address] [place] [address] Dr. Jeimy Tenorio RBC 3.88 106/ul Critically low 4.70-6.10 [facility] Comment on above: Performed By: #### C BC #### [facility] [address] [place] [address] Dr. Jeimy Tenorio WBC 7.2 103/ul Normal 4.0-11.0 [facility] Comment on above: Performed By: #### C BC #### [facility] [address] [place] [address] Dr. Jeimy Tenorio D-DIMERon 06-11-2022 D-DIMER 0.63 mg/L FEU Critically high <=0.59 [facility] Comment on above: Performed By: #### D DIM #### [facility] [address] [place] [address] Dr. Jeimy Tenorio D-DIMER COMMENTS SEE BELOW Normal [facility] Comment on above: Result Comment: Incr [...] hospitalization. Performed By: #### D DIM #### [facility] [address] [place] [address] Dr. Jeimy Tenorio PROF 14(COMP METB)on 022 Albumin [Mass/Vol] 3.3 g/dL Critically low 3.4-5.0 [facility] Comment on above: Performed By: #### C BC #### [facility] [address] [place] [address] Dr. Jeimy Tenorio Albumin/Globulin [Mass ratio] 0.8 {ratio} Normal [facility] Comment on above: Performed By: #### C BC #### [facility] [address] [place] [address] Dr. Jeimy Tenorio ALP [Catalytic activity/Vol] 160 U/L Critically high 46-116 [facility] Comment on above: Performed By: #### C BC #### [facility] [address] [place] [address] Dr. Jeimy Tenorio ALT [Catalytic activity/Vol] 26 U/L Normal 16-63 [facility] Comment on above: Performed By: #### C BC #### [facility] [address] [place] [address] Dr. Jeimy Tenorio Anion gap [Moles/Vol] 10.4 mmol/L Normal [facility] Comment on above: Performed By: #### C BC #### [facility] [address] [place] [address] Dr. Jeimy Tenorio AST [Catalytic activity/Vol] 16 U/L Normal 15-37 [facility] Comment on above: Performed By: #### C BC #### [facility] [address] [place] [address] Dr. Jeimy Tenorio Bilirubin [Mass/Vol] 0.2 mg/dL Normal 0.2-1.0 [facility] Comment on above: Performed By: #### C BC #### [facility] [address] [place] [address] Dr. Jeimy Tenorio Calcium [Mass/Vol] 8.2 mg/dL Critically low 8.5-10.1 [facility] Comment on above: Performed By: #### C BC #### [facility] [address] [address] [address] Jeimy Tenorio Chloride [Moles/Vol] 105 mmol/L Normal 98-107 [facility] Comment on above: Performed By: #### C BC #### [facility] [address] [address] [address] Jeimy Tenorio CO2 [Moles/Vol] 26.5 mmol/L Normal 21.0-32.0 [facility] Comment on above: Performed By: #### C BC #### [facility] [address] [address] [address] Jeimy Tenorio Creatinine [Mass/Vol] 0.96 mg/dL Normal 0.70-1.30 [facility] Comment on above: Performed By: #### C BC #### [facility] [address] [place] [address] Dr. Jeimy Tenorio EGFR-AF TRINIDADIAN >60 Normal >=60 [facility] Comment on above: Performed By: #### C BC #### [facility] [address] [place] [address] Dr. Jeimy Tenorio EGFR-NON AF TRINIDADIAN >60 Normal >=60 [facility] Comment on above: Performed By: #### C BC #### [facility] [address] [place] [address] Dr. Jeimy Tenorio Globulin (S) [Mass/Vol] 4.0 g/dL Normal [facility] Comment on above: Performed By: #### C BC #### [facility] [address] [place] [address] Dr. Jeimy Tenorio Glucose [Mass/Vol] 140 mg/dL Critically high 74-106 [facility] Comment on above: Performed By: #### C BC #### [facility] [address] [place] [address] Dr. Jeimy Tenorio Potassium [Moles/Vol] 3.9 mmol/L Normal 3.5-5.1 [facility] Comment on above: Performed By: #### C BC #### [facility] [address], [place] [address] Dr. Jeimy Tenorio Protein [Mass/Vol] 7.3 g/dL Normal 6.4-8.2 [facility] Comment on above: Performed By: #### C BC #### [facility] [address], [place] [address] Dr. Jeimy Tenorio Sodium [Moles/Vol] 138 mmol/L Normal 136-145 [facility] Comment on above: Performed By: #### C BC #### [facility] [address] [place], [place] [address] Dr. Jeimy Tenorio Urea nitrogen [Mass/Vol] 15.0 mg/dL Normal 7.0-18.0 [facility] Comment on above: Performed By: #### C BC #### [facility] [address] [place], [place] [address] Dr. Jeimy Tenorio Urea nitrogen/Creatinine [Mass ratio] 15.6 mg/mg Normal [facility] Comment on above: Performed By: #### C BC #### [facility] [address] [place], [place] [address] Dr. Jeim[facility] Tenorio [facility]21 Albumin [Mass/Vol] 4.3 g/dL Normal 3.6-5.1 [facility] Comment on above: Performed By: #### 7 , 025, 71666 #### [facility] [address] [address] [employer] Member: Yash Campuzano MD Albumin/Globulin [Mass ratio] 1.3 {ratio} Normal 1.0-2.5 [facility] Comment on above: Performed By: #### 7 , 473, 25489 #### [facility] [address] [place] [address] [employer] Member: Yash Campuzano MD ALP [Catalytic activity/Vol] 152 U/L High 35-144 [facility] Comment on above: Performed By: #### 7 , 975, 41381 #### [facility] [address] [address] [employer] Member: Yash Campuzano MD ALT [Catalytic activity/Vol] 30 U/L Normal 9-46 [facility] Comment on above: Performed By: #### 7 13, 7599, 96366 #### [facility] of [address] [place] [address] [employer] Member: Yash Campuzano MD AST [Catalytic activity/Vol] 26 U/L Normal 10-35 [facility] Comment on above: Performed By: #### 7 13, 7599, 41051 #### [facility] of [address] [place] [address] [employer] Member: Yash Campuzano MD Bilirubin [Mass/Vol] 0.4 mg/dL Normal 0.2-1.2 [facility] Comment on above: Performed By: #### 7 13, 7599, 10724 #### [facility] of [address] [place] [address] [employer] Member: Yash Campuzano MD BUN/CREATININE RATIO NOT APPLICABLE Normal 6-22 [facility] Comment on above: Performed By: #### 7 13, 7599, 46654 #### [facility] [address] [place] [address] [employer] Member: Yash Campuzano MD Calcium [Mass/Vol] 8.8 mg/dL Normal 8.6-10.3 [facility] Comment on above: Performed By: #### 7 13, 7599, 35410 #### [facility] of [address] [place] [address] [employer] Member: Yash Campuzano MD Chloride [Moles/Vol] 104 mmol/L Normal 98-110 [facility] Comment on above: Performed By: #### 7 13, 7599, 05644 #### [facility] of [address] [place] [address] [employer] Member: Yash Campuzano MD CO2 [Moles/Vol] 25 mmol/L Normal 20-32 [facility] Comment on above: Performed By: #### 7 , 7599, 00933 #### [facility] [address] [address] [employer] Member: Yash Campuzano MD Creatinine [Mass/Vol] 0.76 mg/dL Normal 0.70-1.25 [facility] Comment on above: Result Comment: For patients >49 years of age, the reference limit for Creatinine is approximately 13% higher for people identified as -Togolese. Performed By: #### 7 , 7599, 24700 #### [facility] [address] [place] [address] [employer] Member: Yash Campuzano MD eGFR NON-AFR. TRINIDADIAN 95 mL/min/1.73m2 Normal > OR = 60 [facility] Comment on above: Performed By: #### 7 , 7599, 80704 #### [facility] [place] [address] [employer] Member: Yash Campuzano MD GFR/1.73 sq M.predicted among blacks MDRD (S/P/Bld) [Vol rate/Area] 110 mL/min/{1.73_m2} Normal > OR = 60 [facility] Comment on above: Performed By: #### 7 , 7599, 83300 #### [facility] [place] [address] [employer] Member: Yash Campuzano MD Globulin (S) [Mass/Vol] 3.2 g/dL Normal 1.9-3.7 [facility] Comment on above: Performed By: #### 7 13, 7599, 97916 #### [facility] [place] [address] [employer] Member: Yash Campuzano MD Glucose [Mass/Vol] 103 mg/dL High 65-99 [facility] Comment on above: Result Comment: Fasting reference interval For someone without known diabetes, a glucose value between 100 and 125 mg/dL is consistent with prediabetes and should be confirmed with a follow-up test. Performed By: #### 7 , 7599, 63129 #### [facility] [address] [id number] [employer] Member: Yash Campuzano MD Potassium [Moles/Vol] 4.7 mmol/L Normal 3.5-5.3 [facility] Comment on above: Performed By: #### 7 13, 7600, 71478 #### [facility] of [address], [address] [place] [address] [employer]essel Crew Member: Yash Campuzano MD Protein [Mass/Vol] 7.5 g/dL Normal 6.1-8.1 [facility] Comment on above: Performed By: #### 7 13, 7600, 49326 #### [facility] of [address], [address] [place] [address] [employer]essel Crew Member: Yash Campuzano MD Sodium [Moles/Vol] 137 mmol/L Normal 135-146 [facility] Comment on above: Performed By: #### 7 13, 7599, 83033 #### [facility] of [address], [address] [place] [address] [employer]essel Crew Member: Yash Campuzano MD Urea nitrogen [Mass/Vol] 15 mg/dL Normal 7-25 [facility] Comment on above: Performed By: #### 7 13, 7599, 09388 #### [facility] of [place] [address] [employer] Crew Member: Yash Campuzano MD LIPID PANEL, [address] Cholesterol [Mass/Vol] 180 mg/dL Normal <200 [facility] Comment on above: Order Comment: FASTI NG:YES FASTING: YES Performed By: #### 7 13, 7600, 77329 #### [facility] of [address], [address] [place] [address] [employer] Crew Member: Yash Campuzano MD Cholesterol in HDL [Mass/Vol] 50 mg/dL Normal > OR = 40 [facility] Comment on above: Order Comment: FASTI NG:YES FASTING: YES Performed By: #### 7 13, 7600, 34772 #### [facility] of [address], [address] [place] [address] [employer] Crew Member: Yash Campuzano MD Cholesterol in LDL [Mass/Vol] [...] LDL-C. Gennaro ALMANZAR et al. KO. 2013;310(19): 4008-3550 (http://education.InternetVista/faq/IUF171) Performed By: #### 7 , 9800, 07534 #### [facility] [address], [address] [place] [address] [employer] Crew Member: Yash Campuzano MD Cholesterol.total/Ch olesterol in HDL [Mass ratio] 3.6 {ratio} Normal <5.0 [facility] Comment on above: Order Comment: FASTI NG:YES FASTING: YES Performed By: #### 7 , 434, 45219 #### [facility] [address], [address] [place] [address] [employer] Crew Member: Yash Campuzano MD NON HDL CHOLESTEROL 130 mg/dL (calc) High <130 [facility] Comment on above: Order Comment: FASTI NG:YES FASTING: YES Result Comment: For patients with diabetes plus 1 major ASCVD risk factor, treating to a non-HDL-C goal of <100 mg/dL (LDL-C of <70 mg/dL) is considered a therapeutic option. Performed By: #### 7 , 151, 22851 #### [facility] [address], [address] [place], [place] [id number] [employer] Member: Yash Campuzano MD Triglyceride [Mass/Vol] 280 mg/dL High <150 [facility] Comment on above: Order Comment: FASTI NG:YES FASTING: YES Result Comment: If a non-fasting specimen was collected, consider repeat triglyceride testing on a fasting specimen if clinically indicated. Marquise et al. J. of Clin. Lipidol. 2015;9:129-169. Performed By: #### 7 13, 7600, 60710 #### [facility] of [place] [address] [employer] Crew Member: Yash Campuzano MD PHENYTOINon 10-30-2021 Phenytoin [Mass/Vol] 18.9 ug/mL Normal 10.0-20.0 [facility] Comment on above: Performed By: #### 7 13, 0, 25998 #### [facility] of [place] [address] [employer] Member: Yash Campuzano MD CBC (INCLUDES DIFF/PLT)on Basophils (Bld) [#/Vol] 0.071 10*3/uL Normal 0-200 [facility] Comment on above: Performed By: #### 7 13, 760, 6399 #### [facility] [place] [address] [employer] Member: Yash Campuzano MD Basophils/100 WBC (Bld) 1.2 % Normal [facility] Comment on above: Performed By: #### 7 13, 7600, 6399 #### [facility] [place] [address] [employer] Member: Yash Campuzano MD Eosinophils (Bld) [#/Vol] 0.277 10*3/uL Normal 15-500 [facility] Comment on above: Performed By: #### 7 13, 7600, 6399 #### [facility] [place] [address] [employer] Member: Yash Campuzano MD Eosinophils/100 WBC (Bld) 4.7 % Normal [facility] Comment on above: Performed By: #### 7 13, 7600, 6399 #### [facility] [place] [address] [employer] Member: Yash Campuzano MD Erythrocyte distribution width (RBC) [Ratio] 12.8 % Normal 11.0-15.0 [facility] Comment on above: Performed By: #### 7 , 7599, 6399 #### [facility] of [place] [address] [employer] Member: Yash Campuzano MD Hematocrit (Bld) [Volume fraction] 42.1 % Normal 38.5-50.0 [facility] Comment on above: Performed By: #### 7 , 7599, 6399 #### [facility] of [place] [address] [employer] Crew Member: Yash Campuzano MD Hemoglobin (Bld) [Mass/Vol] 14.9 g/dL Normal 13.2-17.1 [facility] Comment on above: Performed By: #### 7 , 7599, 6399 #### [facility] of [place] [place] [address] [employer]essel Crew Member: Yash Campuzano MD Lymphocytes (Bld) [#/Vol] 1.068 10*3/uL Normal 850-3900 [facility] Comment on above: Performed By: #### 7 , 7599, 6399 #### [facility] of [place] [address] [employer] Member: Yash Campuzano MD Lymphocytes/100 WBC (Bld) 18.1 % Normal [facility] Comment on above: Performed By: #### 7 , 7599, 6399 #### [facility] of [place] [address] [employer] Member: Yash Campuzano MD MCH (RBC) [Entitic mass] 32.9 pg Normal 27.0-33.0 [facility] Comment on above: Performed By: #### 7 , 7599, 6399 #### [facility] of [place] [address] [employer] Member: Yash Campuzano MD MCHC (RBC) [Mass/Vol] 35.4 g/dL Normal 32.0-36.0 [facility] Comment on above: Performed By: #### 7 , 7599, 6399 #### [facility] of [address], [address] [place] [address] Vessel Crew Member: Yash Campuzano MD MCV (RBC) [Entitic vol] 92.9 fL Normal 80.0-100.0 [facility] Comment on above: Performed By: #### 7 13, 7600, 6399 #### [facility] of [address], [address] [place] [address] [employer]essel Crew Member: Yash Campuzano MD Monocytes (Bld) [#/Vol] 0.531 10*3/uL Normal 200-950 [facility] Comment on above: Performed By: #### 7 13, 7599, 6399 #### [facility] of [address], [address] [place] [address] [employer]essel Crew Member: Yash Campuzano MD Monocytes/100 WBC (Bld) 9.0 % Normal [facility] Comment on above: Performed By: #### 7 13, 7599, 6399 #### [facility] of [address], [address] [place] [address] [employer]essel Crew Member: Yash Campuzano MD Neutrophils (Bld) [#/Vol] 3.953 10*3/uL Normal 2842-5723 [facility] Comment on above: Performed By: #### 7 13, 760, 6399 #### [facility] of [address], [address] [place] [address] [employer]essel Crew Member: Yash Campuzano MD Neutrophils/100 WBC (Bld) 67 % Normal [facility] Comment on above: Performed By: #### 7 13, 760, 6399 #### [facility] of [address], [address] [place] [address] [employer]essel Crew Member: Yash Campuzano MD Platelet mean volume (Bld) [Entitic vol] 11.0 fL Normal 7.5-12.5 [facility] Comment on above: Performed By: #### 7 13, 760, 6399 #### [facility] of [address], [address] [place] [address] [employer]essel Crew Member: Yash Campuzano MD Platelets (Bld) [#/Vol] 200 10*3/uL Normal 140-400 [facility] Comment on above: Performed By: #### 7 13, 7600, 6399 #### [facility] of [address], [address] [place] [address] [employer]essel Crew Member: Yash Campuzano MD RBC (Bld) [#/Vol] 4.53 10*6/uL Normal 4.20-5.80 [facility] Comment on above: Performed By: #### 7 13, 760, 6399 #### [facility] of [address], [address] [place] [address] Vessel Crew Member: Yash Campuzano MD WBC (d) [#/Vol] 5.9 10*3/uL Normal 3.8-10.8 [facility] Comment on above: Performed By: #### 7 13, 7599, 6399 #### [facility] of [address], [address] [place] [address] Vessel Crew Member: Yash Campuzano MD LIPID PANEL, [address] Cholesterol [Mass/Vol] 218 mg/dL High <200 [facility] Comment on above: Order Comment: FASTI NG:YES FASTING: YES Performed By: #### 7 13, 7600, 6399 #### [facility] of [place] [address] [employer] Crew Member: Yash Campuzano MD Cholesterol in HDL [Mass/Vol] 55 mg/dL Normal > OR = 40 [facility] Comment on above: Order Comment: FASTI NG:YES FASTING: YES Performed By: #### 7 13, 760, 6399 #### [facility] of [place] [address] [employer]essel Crew Member: Yash Campuzano MD Cholesterol in LDL [Mass/Vol] [...] LDL-C. Gennaro ALMANZAR et al. KO. 2013;310(19): 1541-6589 (http://[facility].InternetVista/faq/ANA777) Performed By: #### 7 , 0440, 8302 #### [facility] [address], [address] [place] [address] [employer]essel Crew Member: Yash Campuzano MD Cholesterol.total/Ch olesterol in HDL [Mass ratio] 4.0 {ratio} Normal <5.0 [facility] Comment on above: Order Comment: FASTI NG:YES FASTING: YES Performed By: #### 7 , 525, 0404 #### [facility] [address], [address] [place] [address] [employer]essel Crew Member: Yash Campuzano MD NON HDL CHOLESTEROL 163 mg/dL (calc) High <130 [facility] Comment on above: Order Comment: FASTI NG:YES FASTING: YES Result Comment: For patients with diabetes plus 1 major ASCVD risk factor, treating to a non-HDL-C goal of <100 mg/dL (LDL-C of <70 mg/dL) is considered a therapeutic option. Performed By: #### 7 , 3538, 9277 #### [facility] [address], [address] [place] [address] [employer]essel Crew Member: Yash Campuzano MD Triglyceride [Mass/Vol] 200 mg/dL High <150 [facility] Comment on above: Order Comment: FASTI NG:YES FASTING: YES Result Comment: If a non-fasting specimen was collected, consider repeat triglyceride testing on a fasting specimen if clinically indicated. Marquise et al. J. of Clin. Lipidol. 2015;9:129-169. Performed By: #### 7 , 354, 9331 #### [facility] [address], [address] [place] [address] Vessel Crew Member: Yash Campuzano MD PHENYTOINon 04-18-2021 Phenytoin [Mass/Vol] 25.0 ug/mL High 10.0-20.0 [facility] Comment on above: Performed By: #### 7 13, 8858, 6231 #### [facility] [address], [address] [place] [address] Vessel Crew Member: Yash Campuzano MD APTTon 11-20-2020 aPTT Coag (Bld) [Time] 33.4 s Normal 25.0-35.0 [facility] Comment on above: Result Comment: ALL [...] THIS PURPOSE. Performed By: #### 5 6101, 29381 ####[facility] BNP EDon 11-20-2020 Natriuretic peptide B (Bld) [Mass/Vol] 111 pg/mL High 0-100 [facility] Comment on above: Result Comment: Give n the appropriate clinical setting a BNP result of >100 pg/mL indicates congestive heart failure. Performed By: #### 3 0935 #### [facility] [address] CBC W/DIFFon 11-20-2020 ABS IMM GRANS 0.0 10*3/uL Normal 0.0-0.2 [facility] Comment on above: Performed By: #### 5 0103 ####[facility] ABS NEUTROPHILS 3.9 10*3/uL Normal 1.6-7.6 [facility] Comment on above: Performed By: #### 5 0103 ####[facility] Basophils (Bld) [#/Vol] 0.1 10*3/uL Normal 0.0-0.2 The [facility] Comment on above: Performed By: #### 5 0103 ####[facility]3000 [facility] [place] [address], [facility] Basophils/100 WBC (Bld) 1.0 % Normal 0.0-1.0 [facility] Comment on above: Performed By: #### 5 0103 ####[facility]3000 [facility] [place] [address], [facility] Eosinophils (Bld) [#/Vol] 0.3 10*3/uL Normal 0.0-0.5 [facility] Comment on above: Performed By: #### 5 0103 ####[facility]3000 [facility] [place] [address], [facility] Eosinophils/100 WBC (Bld) 5.1 % Normal 0.0-6.0 [facility] Comment on above: Performed By: #### 3 ####[facility]3000 [facility].[address] Erythrocyte distribution width (RBC) [Ratio] 13.1 % Normal 11.5-15.0 [facility] Comment on above: Performed By: #### 5 3 ####[facility]3000 [facility].[address] Hematocrit (Bld) [Volume fraction] 45.4 % Normal 39.0-50.0 [facility] Comment on above: Performed By: #### 5 3 ####[facility]3000 [facility] [place] [address], [facility] Hemoglobin (Bld) [Mass/Vol] 14.8 g/dL Normal 13.0-17.0 The [facility] Comment on above: Performed By: #### 5 3 ####[facility] IMMATURE GRANS 0.3 % Normal 0.0-1.0 The [facility] Comment on above: Performed By: #### 5 0103 ####[facility] Lymphocytes (Bld) [#/Vol] 1.0 10*3/uL Low 1.2-4.0 The [facility] Comment on above: Performed By: #### 5 0103 ####[facility] Lymphocytes/100 WBC (Bld) 17.5 % Low 20.0-45.0 [facility] Comment on above: Performed By: #### 5 102 ####[address] MCH (RBC) [Entitic mass] 32.5 pg Normal 27.0-33.0 [facility] Comment on above: Performed By: #### 5 3 ####[address] MCHC (RBC) [Mass/Vol] 32.6 g/dL Normal 32.0-35.0 [facility] Comment on above: Performed By: #### 5 3 ####[facility] MCV (RBC) [Entitic vol] 99.6 fL High 82.0-98.0 [facility] Comment on above: Performed By: #### 5 3 ####[place] [address], [facility] Monocytes (Bld) [#/Vol] 0.6 10*3/uL Normal 0.1-1.0 [facility] Comment on above: Performed By: #### 5 3 ####[address] [place] [address], [place] MONOS 9.4 % Normal 5.0-12.0 [facility] Comment on above: Performed By: #### 5 3 ####[place] [address], [facility] Neutrophils/100 WBC (Bld) 66.7 % Normal 40.0-72.0 [facility] Comment on above: Performed By: #### 5 0103 ####[address] Nucleated RBC/100 WBC (Bld) [Ratio] 0 % Normal 0-0 [facility] Comment on above: Performed By: #### 5 102 ####[address] PLAT CNT 175 10*3/uL Normal 150-400 The [facility] Comment on above: Performed By: #### 5 3 ####[address] RBC (Bld) [#/Vol] 4.56 10*6/uL Normal 4.20-5.70 [facility] Comment on above: Performed By: #### 5 3 ####[address] WBC (Bld) [#/Vol] 5.88 10*3/uL Normal 4.00-10.60 [facility] Comment on above: Performed By: #### 5 3 ####[address] COMP METABOLIC PANELon 11-20 Albumin [Mass/Vol] 4.0 g/dL Normal 3.5-5.7 The [facility] Comment on above: Performed By: #### 0 0121, 27185, 24067, 66390 #### [facility] [address] [place] [address], [place] ALKALINE PHOSPH 130 IU/L High 34-104 [facility] Comment on above: Performed By: #### 0 0121, 30082, 49009, 68770 #### [facility] [address] [place] [address], [place] ALT [Catalytic activity/Vol] 18 U/L Normal 7-52 The [facility] Comment on above: Performed By: #### 0 0121, 74109, 70718, 73755 #### [facility] [address] [place] [address], [place] AST [Catalytic activity/Vol] 19 U/L Normal 13-39 [facility] Comment on above: Performed By: #### 0 0121, 96887, 47552, 96284 #### [facility] [address] [place] [address], [place] Bilirubin [Mass/Vol] 0.4 mg/dL Normal 0.3-1.0 [facility] Comment on above: Performed By: #### 0 0121, 91944, 51916, 91432 #### [facility] [address] [place] [address], [place] Calcium [Mass/Vol] 9.0 mg/dL Normal 8.6-10.3 [facility] Comment on above: Performed By: #### 0 0121, 55638, 39621, 57580 #### [facility] [address] [place] [address], [place] Chloride [Moles/Vol] 103 mmol/L Normal 98-107 [facility] Comment on above: Performed By: #### 0 0121, 93978, 59366, 16719 #### [facility] [address] [place] [address], [place] CO2 [Moles/Vol] 28 mmol/L Normal 21-31 The [facility] Comment on above: Performed By: #### 0 0121, 15727, 87767, 81017 #### [facility] [address] [place] [address], [place] Creatinine [Mass/Vol] 0.77 mg/dL Normal 0.70-1.30 [facility] Comment on above: Performed By: #### 0 0121, 49673, 23777, 96736 #### [facility] [address] [place] [address], [place] GFR/1.73 sq M.predicted among blacks MDRD (S/P/Bld) [Vol rate/Area] mL/min/{1.73_m2} Normal >60 [facility] Comment on above: Performed By: #### 0 0121, 72450, 29746, 64724 #### [facility] [address] [place] [address], [place] GFR/1.73 sq M.predicted among non-blacks MDRD (S/P/Bld) [Vol rate/Area] mL/min/{1.73_m2} Normal >60 [facility] Comment on above: Performed By: #### 0 0121, 79668, 45315, 90289 #### [facility] [address] [place] [address], [place] Glucose [Mass/Vol] 88 mg/dL Normal 70-100 [facility] Comment on above: Performed By: #### 0 0121, 64456, 10636, 32717 #### [facility] [address] [place] [address], [place] Potassium [Moles/Vol] 4.9 mmol/L Normal 3.5-5.1 [facility] Comment on above: Performed By: #### 0 0121, 49201, 38283, 69402 #### [facility] [address] [place] [address], [place] Protein [Mass/Vol] 7.3 g/dL Normal 6.0-8.3 [facility] Comment on above: Performed By: #### 0 0121, 14030, 53304, 46731 #### [address] [place] [address], [facility] Sodium [Moles/Vol] 138 mmol/L Normal 136-145 [facility] Comment on above: Performed By: #### 0 0121, 50020, 36049, 93378 #### [facility] 3000 [place], [place] [address] [place] [address] Urea nitrogen [Mass/Vol] 15 mg/dL Normal 7-25 [facility] Comment on above: Performed By: #### 0 0121, 88456, 05606, 32755 #### [address] [address], [facility] CTA HEADon 11-20-2020 CTA HEAD [facility] Department of Radiology [address] [place], [place] [id number] Patient Name: NAZARIO CORTES : 1955 Sex: M Age: Race: White Pt. Location: [facility] Patient Status: E Ordered Date: 11/20/2020 [...] stenosis of the major vessels of the [place]. origin of bilateral posterior cerebral arteries. IMPRESSION: Normal CTA of the brain. All CT scans at this facility use dose modulation, iterative reconstruction, and/or weight based dosing when appropriate to reduce radiation dose to as low as reasonably achievable. Electronically signed: Dhaval Bain. Transcribed by: [email or web address], User Resident: Electronically Signed by: DHAVAL BAIN @ 11/20/2020 12:58 PM Normal The [facility] Comment on above: Order Comment: Bleed CTA NECKon 11-20-2020 CTA NECK [facility] Department of Radiology [address] [place] [id number] Patient Name: NAZARIO CORTES : 1955 Sex: M Age: Race: White Pt. Location: [facility] Patient Status: E Ordered Date: 11/20/2020 [...] viewed on a separate workstation. The [place] Symptomatic Carotid Endarterectomy Trial (NASCET) method for [...] achievable Electronically signed: Dhaval Bain. Transcribed by: [email or web address], User Resident: Electronically Signed by: DHAVAL BAIN @ 11/20/2020 12:57 PM Normal [facility] DIRECT BILIon 11-20-2020 Bilirubin.direct [Mass/Vol] 0.1 mg/dL Normal 0.0-0.2 [facility] Comment on above: Order Comment: Liver Battery conflicts with Comprehensive Metabolic Panel. Liver Battery canceled and Direct Bilirubin added. Performed By: #### 0 0121, 49293, 01242, 76304 #### [facility] [address] [place] [address], [facility] LIPASE BLOODon 11-20-2020 LIPASE 27 Units/L Normal 11-82 [facility] Comment on above: Performed By: #### 0 0121, 82738, 86353, 60780 #### [address] POC SARS COV2 ANTIGEN NEGATI VEon 11-20-2020 POC SARS COV2 ANTIGEN N Negative Normal NEGATIVE [facility] Comment on above: Result Comment: Test performed on BD Veritor System for rapid detection of SARS-CoV-2. [...] management. Performed By: #### 3 1919 #### [address] PORTABLE CHEST 1 VIEWon 10-23 PORTABLE CHEST 1 VIEW [facility] Department of Radiology [address] [place], [place] [phone] Patient Name: NAZARIO CORTES : 1955 Sex: M Age: Race: White Pt. Location: [facility] Patient Status: E Ordered Date: 11/20/2020 11:20:00 AM Completed Date: 11/20/2020 11:43 AM Requesting Provider: MANUEL DUNN Attending Provider: KARINA JYA Report Copy To: Signs & Symptoms: Chest [...] reports Electronically signed: Dhaval Bain. Transcribed by: [email or web address], User Resident: JESSENIA ALFORD Electronically Signed by: DHAVAL BAIN @ 11/20/2020 12:32 PM I personally read this/these film(s) with this resident Normal [facility] Comment on above: Order Comment: evalu ate for Pneumonia PROTHROMBIN TIMEon 0 INR Coag (PPP) [Relative time] 0.95 {INR} Normal 0.91-1.16 [facility] Comment on above: Result Comment: ACCC P [...] CHEST 1995;108:231S-246S. Performed By: #### 5 6101, 75542 ####[facility] PT Coag (PPP) [Time] 12.7 s Normal 12.3-14.8 [facility] Comment on above: Result Comment: ALL RESULTS MUST BE INTERPRETED WITH RESPECT TO BLOOD DRAWING ARTIFACT OR DILUTION ERROR OF ANTICOAGULANT AT THE TIME OF SAMPLING. Performed By: #### 5 6101, 12490 ####[facility] TROPONIN-Ion 11-20-2020 Troponin I.cardiac [Mass/Vol] 0.00 ng/mL Normal 0.00-0.04 [facility] Comment on above: Order Comment: No: D o not add to previous draw Result Comment: REFE RENCE RANGES: 0.00 - 0.14 ng/ml NEGATIVE 0.15 - 0.25 ng/ml INDETERMINATE > 0.25 ng/ml INDICATIVE OF AN M.I. Performed By: #### 3 5200 #### [facility] [address] [place] [address], [facility] Troponin I.cardiac [Mass/Vol] 0.00 ng/mL Normal 0.00-0.04 [facility] Comment on above: Result Comment: REFE RENCE RANGES: 0.00 - 0.14 ng/ml NEGATIVE 0.15 - 0.25 ng/ml INDETERMINATE > 0.25 ng/ml INDICATIVE OF AN M.I. Performed By: #### 0 0121, 49175, 38821, 06679 #### [facility] [address] [place] [address], [facility] Vital Signs Date Time Vital Sign Value Performing Clinician Facility 07-05-2023 10:00-0400 Body height 185.42 cm Luiz Riggs Other [facility] Other 07-05-2023 10:00-0400 Body mass index (BMI) [Ratio] 37.86 kg/m2 Luiz Riggs Other [facility] Other 07-05-2023 10:00-0400 Body weight 130.18 kg Luiz Riggs Other [facility] Other 07-05-2023 10:00-0400 Diastolic blood pressure 76 mm[Hg] Luiz Riggs Other [facility] Other 07-05-2023 10:00-0400 Systolic blood pressure 126 mm[Hg] Luiz Riggs Other [facility] Other 04-06-2022 17:40-0400 Body height 185.42 cm Neelam Alexandra Other [facility] Other 04-06-2022 17:40-0400 Body mass index (BMI) [Ratio] 36.15 kg/m2 Neelam Alexandra Other [facility] Other 04-06-2022 17:40-0400 Body temperature 98 [degF] Neelam Alexandra Other [facility] Other 04-06-2022 17:40-0400 Body weight 124.29 kg Neelam Alexandra Other [facility] Other 04-06-2022 17:40-0400 Diastolic blood pressure 69 mm[Hg] Neelam Alexandra Other [facility] Other 04-06-2022 17:40-0400 Respiratory rate 18 /min Neelam Alexandra Other [facility] Other 04-06-2022 17:40-0400 SaO2% (BldA) [Mass fraction] 95 % Neelam Morris Other [facility] Other 04-06-2022 17:40-0400 Systolic blood pressure 123 mm[Hg] Neelam Morris Other [facility] Other 12-28-2021 17:00-0500 Body height 185.42 cm Alex Castanopiper Other [facility] Other 12-28-2021 17:00-0500 Body mass index (BMI) [Ratio] 37.47 kg/m2 Alex Elspiper Other [facility] Other 12-28-2021 17:00-0500 Body weight 128.82 kg Alex Castanotriciarobbie Other [facility] Other Encounters Encounter Date Encounter Type Care Provider Facility Start: 01-11-2024 End: 01-11-2024 ambulatory TIESHA Not Available Start: 01-05-2024 End: 01-06-2024 ambulatory [facility] Start: 01-05-2024 End: 01-05-2024 ambulatory [facility] Start: 12-30-2023 ambulatory Chris Archuleta ty:[facility] Start: 12-21-2023 Telephone encounter Epifanio dennison MD Work Phone: [facility] Start: 12-20-2023 ambulatory [facility] Start: 12-19-2023 End: 12-20-2023 ambulatory [facility] Start: 12-15-2023 End: 12-15-2023 ambulatory JIGNESH GONSALEZ Not Available Start: 12-07-2023 End: 12-07-2023 ambulatory JIGNESH GONSALEZ Not Available Start: 11-29-2023 End: 11-29-2023 ambulatory JIGNESH GONSALEZ Not Available Start: 10-06-2023 End: 10-06-2023 ambulatory JIGNESH GONSALEZ Not Available Start: 07-18-2023 End: 07-19-2023 ambulatory JIGNESH GONSALEZ Facility:[facility] Start: 07-18-2023 End: 07-18-2023 Patient encounter procedure Chris Brizuela RABIA [facility] Start: 07-05-2023 Office outpatient ne w 30 minutes Luiz Riggs [facility] Start: 07-05-2023 End: 07-05-2023 ambulatory MD Jignesh Gonsalez Work Phone: [facility] Work Phone: Start: 07-05-2023 End: 07-05-2023 Patient encounter procedure MD Jignesh Gonsalez Work Phone: [facility] [place] Work Phone: Start: 01-07-2023 End: 01-08-2023 ambulatory [...] 04-06-2022 End: 04-06-2022 ambulatory Neelam Morris Other [facility] [employer] Other Start: 04-06-2022 Office outpatient visit 15 minutes Neelam Morris [facility] Start: 12-28-2021 End: 12-28-2021 ambulatory Alex Bonilla Other [facility] [employer] Other Start: 12-28-2021 Office outpatient ne w 30 minutes Alex Bonilla [facility] Start: 11-20-2020 End: 11-20-2020 Emergency department patient visit KARINA JAY Facility:[facility] Procedures Date Procedure Procedure Detail Performing Clinician Start: 07-05-2023 X-ray of lumbar spin e, six views including bending views MD Jignesh Gonsalez Work Phone: Start: 09-29-[address] JOSE MARIE Comment on above: Performed By: #### P [facility] #### [facility] [address] [place] [address] Dr. Jeimy Tenorio Extraction of cataract Patri luis antonio CAMARILLO Procedure on foot Chris DILLON ANGELIQUE Plan of Treatment Date Care Activity Detail Author Start: 12-30-2023 COVID-19 Vaccine ( season) COVID-19 Vaccine ( season) [facility] Start: 08-16-2023 Adult BMI Screening Adult BMI Screening [facility] Start: 08-16-2023 Fall Risk Screening Fall Risk Screening [facility] Start: 08-16-2023 Tobacco Screening Tobacco Screening [facility] Start: 1974 Administration of varicella zoster vaccine Zoster (Shingles) Vaccine (1 of 2) [facility] Start: 1974 DTaP,Tdap and Td Vaccines (1 - Tdap) DTaP,Tdap and Td Vaccines (1 - Tdap) [facility] Start: 1967 Depression Screening Depression Screening [facility] Start: 1955 Medicare Annual Wellness Visit Medicare Annual Wellness Visit [facility] Immunizations Immunization Date Immunization Notes Care Provider Fa cility 11-04-2023 Covid-19, Mrna, Lnp- s, Bivalent, Pf, 30mcg/0.3 ml Epifanio Kaufman MD Work Phone: [facility] 08-21-2022 influenza virus vacc ine, unspecified formulation Epifanio Kaufman MD Work Phone: [facility] 08-21-2022 SARS-COV-2 (COVID-19 ) Vaccine, Unspecified Epifanio Kaufman MD Work Phone: [facility] 08-06-2021 Influenza Vaccine, Quadrivalent, Adjuvanted Epifanio Kaufman MD Work Phone: [facility] 02-25-2021 COVID-19, mRNA, LNP- S, PF, 100mcg/0.5mL Dose Epifanio Kaufman MD Work Phone: [facility] 02-12-2021 COVID-19, mRNA, LNP- S, PF, 30mcg/0.3mL Dose Epifanio Kaufman MD Work Phone: [facility] 08-05-2020 influenza, injectabl e, quadrivalent, preservative free Epifanio Kaufman MD Work Phone: [facility] 08-05-2020 pneumococcal polysaccharide vaccine, 23 valent Epifanio Kaufman MD Work Phone: [facility] 09-03-2019 influenza, seasonal, injectable Epifanio Kaufman MD Work Phone: [facility] 08-24-2019 influenza, injectabl e, quadrivalent, preservative free Epifanio Kaufman MD Work Phone: [facility] Payers Date Payer Category Payer Medicaid [id number] 2023 Self-pay [id number] 2022 Medicare [id number] 2021 Medicare AETNA MEDICARE A ETNA MEDICARE PLAN (HMO) [id number] 2021-[facility] [phone] [facility] [id number] [place] [address] [id number] 2021 Unknown [id number] 2021 Medicare [id number] 2020 Medicare [id number] 2019 Unknown [id number] 1959 Medicare [id number] 1955 Unknown [id number] 2.16.840.1.905389.3.579.2.647 1955 Unknown [id number] 2.16.840.1.180755.3.579.2.593 1955 Unknown [id number] 2.16.840.1.175431.3.579.2.593 1955 Unknown [id number] 2.16.840.1.076431.3.579.2.593 1955 Unknown [id number] 2.16.840.1.261036.3.579.2.593 1955 Unknown [id number] 2.16.840.1.470470.3.579.2.593 1955 Unknown [id number] 2.16.840.1.668958.3.579.2.593 1955 Unknown [id number] 2.16.840.1.850670.3.579.2.593 1955 Unknown [id number] 2.16.840.1.168286.3.579.2.1286 1955 Unknown [id number] 2.16.840.1.437190.3.579.2.727 1955 Unknown [id number] 2.16.840.1.425184.3.579.2.727 1955 Unknown [id number] 2.16.840.1.617450.3.579.2.1259 1955 Unknown [id number] 2.16.840.1.016102.3.579.2.1259 1955 Unknown [id number] 2.16.840.1.946748.3.579.2.1259 1955 Unknown [id number] 2.16.840.1.462254.3.579.2.1259 1955 Unknown [id number] 2.16.840.1.949531.3.579.2.1259 Medicare [id number] Unknown [id number] 2.16.840.1.677260.3.579.2.531 Social History Date Type Detail Facility Start: 01-01-2021 End: 08-16-2022 Sex Assigned At [facility] Start: 1955 Sex Assigned At Male [facility] Tobacco smoking status No Smokin g Status Entered [facility] [place] Start: 01-29-2020 [facility] History of tobacco use Current smoker [facility] History of tobacco use Cigarette Smoker [facility] Start: 01-29-2020 End: 01-01-2021 Cigarettes smoked current (pack per day) - Reported 3 [facility] Start: 01-29-2020 Tobacco use and exposure Smokeless tobacco non-user [facility] Start: 08-16-2022 Alcohol intake Ex-drinker (finding) [facility] Childcare Unknown [facility] Start: 1955 Sex Assigned At Not on file [facility] Clinical Notes 11-21-2020 to 01-05-2024 Telephone Encounter - Marissa Aguilera - 12/21/2023 3:24 PM ESTTelephone Encounter - Marissa Aguilera - 12/21/2023 3:24 PM EST Note Date & Type Note Facility 01-05-2024 Note SUBJECTIVE: Chief complaint: Back pain. History of present illness: Consultation referred by primary care provider Dr. Naderer for back pain. Patient reports back and [...] about 6 or 7 years ago, in [facility] and had injections. He states he has made his symptoms worse. Has had aged or disabled carer many years ago for previous symptoms of [...] Past Medical History: Diagnosis Date Bladder cancer ([facility]) around 1997 Cholelithiasis Colon polyp Depression Dyslipidemia Hearing loss Left foot drop Peripheral neuropathy Seizure disorder ([facility]) TIA (transient ischemic attack) Past Surgical History: [...] by mouth in (more content not included)... [facility] 12-21-2023 Miscellaneous Notes Received faxed referral for patient to be seen for Lumbar. Called and spoke to patient, stated he has an appointment set up already at [facility] office. documented in this encounter [facility] 12-21-2023 Telephone encounter Note Received faxed referral for patient to be seen for Lumbar. Called and spoke to patient, stated he has an appointment set up already at [facility] office. [facility] 07-05-2023 Evaluation note Encounter Date Diagnosis Assessment [...] fusion of cervical spine (ICD-10 - Z98.1) [facility] 06-09-2023 Hospital Discharge instructions Follow Up Care 04/29/2023 15:31:28 With:RABIA GAN, Chris Brizuela, URL Address: [facility] [address] , [place] [address]- [phone] When: Unknown [facility] 11-10-2022 NotePROCEDURE: XR FOOT RT MIN 3 [...] Electronically authenticated by: KELL BLANDON Date: 2022-09-30 08:[address] [place], [place] [address]10-03-2022 NotePROCEDURE: XR KNEE LT 4V or >, [...] authenticated by: TRINIDAD BEAVER Date: 2022-08-23 14: [facility] [id number] NotePROCEDURE: XR KNEE LT 4V or >, [...] Electronically authenticated by: TRINIDAD BEAVER Date: 2022-08-23 14:[facility]10-03-2022 NotePROCEDURE: XR KNEE LT 4V or [...] authenticated by: TRINIDAD BEAVER Date: 2022-08-23 14:20[facility] CampusHchaxota10-17-0800 Evaluation note* Encounter Date Diagnosis Assessment Notes Treatment Notes Treatment Clinical Notes March, Bilateral impacted cerumen (ICD-10 - H61.23) Avoid using Q-tips or earplugs. Keep your ears clean and dry. Follow-up with your family physician for any further concerns. [facility] Other 02-07-2022 Evaluation note* Encounter Date Diagnosis [...] contact us for further management as needed. [facility] Other 01-01-2021 NoteMR#: [id number] E [facility] Pt. Name: Nazario Cortes Admitted: 11/20/2020 Discharged: [...] history of coronary artery disease, followed by [facility] Cardiology Clinic that presents to the [facility] Emergency Department with complaints of chest [...] to follow up with his PCP and catheter builder. Total time of discharge was 45 minutes. Electronically Signed by: Trinidad Hamilton MD 11/21/2020 08:00 A Trinidad Hamilton MD .. Date Dict: 11/20/2020/06:21 P/Loida Ashley CNP Date Trans: 11/21/2020 12:04 A/shabbir [id number] cc: Jose Marie M.D. [facility] [address] [place] [address], [address] [place] [address]xfW[facility]ot [facility] HospitalEvaluation + Plan note Future Appointments Appointment Date:08/19/2023 10:30:00 AM Scheduled Provider:Chris CAMARILLO MD Location:[facility] Appointment Type:URO New Patient [facility] evaluation noteNo assessment information available [facility] Work Phone: History general Narrative - Reported* Type Description Date Medical History Seizure Disorder Medical History neuropathy Medical History HX of Bladder CA Medical History hypercholesterolemia Surgical History TUMOR REMOVED FROM BLADDER Surgical History RIGHT ACHILLES TENDON REPAIR Hospitalization History See Above [facility] Other History general Narrative - Reported* Type [...] Surgical History gallbladder Hospitalization History See Above [facility] Other Hospital course Narrative No data available for this section [facility] Active Storage InstructionsNot on filedocumented in this encounter [facility] note No data available for this section [facility] [employer] reason for visit NarrativeReferral Dr. Newell [facility]iculopathyNUp[facility] [employer] Other Summary Purpose Family History No Family [...] o other toxic agents (G62.2) Referral Organization [facility] Ne urosurgery Referring Provider First Name Luiz Referring Provider Last Name Keely Referring Provider Specialty Neurologica l Surgery Referred Organization [facility] Referred Address ,[place], [place],[address] Referred Provider Specialty Physical The rapist Referral Priority Routine Chief Complaint and Reason for Visit Chief Complaint m51.36. Additional Source Comments (unrecognized sect ion and content) No Status Records FoundNo Status Records FoundNo Status Records FoundNo Status Records FoundNo Status Records FoundNo Status Records FoundNo Status Records FoundNo Status Records Found INFORMATION SOURCE (unrecogn ized section and content) DATE CREATED AUTHOR 08/29/2021 [facility] DATE CREATED AUTHOR AUTHOR'S ORGANIZ ATION 10/31/2021 [facility] DATE CREATED AUTHOR AUTHOR'S ORGANIZ ATION 01/13/2023 [facility] DATE CREATED AUTHOR AUTHOR'S ORGANIZ ATION 07/14/2023 [facility] DATE CREATED AUTHOR AUTHOR'S ORGANIZ ATION 12/25/2023 [facility] DATE CREATED AUTHOR AUTHOR'S ORGANIZ ATION 12/29/2023 [facility] DATE CREATED AUTHOR AUTHOR'S ORGANIZ ATION 01/09/2024 [facility] DATE CREATED AUTHOR AUTHOR'S ORGANIZ ATION 01/19/2024 [facility] Special[facility] EPIC REASON FOR VISIT (unrecogniz ed section and content) RIGHT EAR PRESSURE/PAIN, DEN IES OTHER SXSleft leg weakness, back pain Care Teams (unrecognized sec tion and content) Team Status: Active Member Role Status Dates Jignesh Gonsalez MD Primary Care Provider Active Team Status: Inactive Member Role Status Dates Luiz Riggs MD Attending Provider Active Jigensh Gonslaez MD Primary Care Provider Active 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 [place] [address] PCP - General Family Medicine 11/17/23 Goals [...] BE BASED ON THE PRIMARY CLINICAL RECORDS. [employer] provides no warranty or guarantee of the accuracy or completeness of information in this document.
[2024-02-19 14:45] VITALS: BP 149/84; PULSE 76; TEMP 36.8; O2SAT 96; BMI 37.8
--- NOTE | 2024-02-19 15:17 | CT_ITS ---
The [address] [address] Patient Name: GÓMEZ CORTES MRN: [id number] date: 1955 Sex: M Assigned Patient Location: ER Current Patient Location: Accession/Order Number: [id number] Exam Date: 02/19/2024 15:40 Report Date: 02/19/2024 16:17 At the request of: TARSHA COLE Procedure: CT pelvis wo con EXAM: CT pelvis wo con COMPARISON: None available. CLINICAL INDICATION: tailbone pain, fall TECHNIQUE: Multiplanar CT images of the pelvis without contrast. Dose reduction techniques were achieved by using automated exposure control and/or adjustment of mA and/or kV according to patient size and/or use of iterative reconstruction technique. FINDINGS: No CT evidence of acute osseous abnormality of the pelvis. Osteopenia. Moderate degenerative change of bilateral hips. Severe degenerative disc disease L4-L5. Severe lower lumbar facet arthropathy. There appears to be moderate spinal canal narrowing at L4-L5 and moderate bilateral foraminal narrowing from L4 through S1. Nonspecific trace precoccygeal edema. If there is concern for a coccygeal fracture recommend further evaluation with MRI, no obvious coccygeal fracture seen. No acute intrapelvic abnormality. Colonic diverticulosis. No pelvic soft tissue hematoma. CT/CT pelvis wo con IMPRESSION: No CT evidence of acute osseous abnormality of the pelvis. Nonspecific trace precoccygeal edema. If there is concern for coccygeal fracture recommend further evaluation with MRI, no obvious coccygeal fracture seen. Moderate osteoarthritis bilateral hips. Severe degenerative disc disease L4-L5. Severe lower lumbar facet arthropathy. Electronically authenticated by: ORLANDO DICKINSON Date: 02/19/2024 16:17
--- NOTE | 2024-02-19 15:17 | CT_ITS ---
The [address] [address] Patient Name: GÓMEZ CORTES MRN: [id number] date: 1955 Sex: M Assigned Patient Location: ER Current Patient Location: [facility] Accession/Order Number: [id number] Exam Date: 02/19/2024 15:40 Report Date: 02/19/2024 16:41 At the request of: TARSHA COLE Procedure: CT chest wo con CT CHEST WITHOUT CONTRAST: INDICATION: Fall with right shoulder pain, chest pain.. COMPARISON: Right shoulder radiographs 02/19/2024, CT angiogram chest 12/31/2023.. TECHNIQUE: Helical axial CT images of the chest were obtained without the administration of IV contrast. Dose reduction techniques were achieved by using automated exposure control and/or adjustment of mA and/or kV according to patient size and/or use of iterative reconstruction technique. FINDINGS: VASCULATURE: Moderate atherosclerotic calcification of the thoracic aorta. CORONARY ARTERIES: Coronary calcifications are heavy. HEART/PERICARDIUM: Normal variant lipomatous hypertrophy of the intra-atrial septum. MEDIASTINAL/HILAR LYMPH NODES: No lymphadenopathy. ESOPHAGUS: Normal as visualized. PLEURAL CAVITY: No pleural effusion or pneumothorax. LUNGS/AIRWAYS: Mild secretions in the right mainstem bronchus. Small nodular density along the left major fissure consistent with a benign intrapulmonary lymph node which appears stable. There is mild to moderate subpleural scarring in the right middle and lower lobes laterally which also appear stable. Lungs are otherwise clear. CHEST WALL/AXILLA/LOWER NECK: 1.9 cm left thyroid nodule which is essentially stable. This is also similar to a CT from 07/09/2020. VISUALIZED UPPER ABDOMEN: Status post cholecystectomy. BONES: Acute nondisplaced fracture of the right fifth anterior rib and probable acute nondisplaced fracture of the right fourth anterior rib. Multiple remote bilateral rib fractures. Surgical screw in the left scapula. Bridging anterior osteophyte formation in the thoracic spine consistent with DISH. CT/CT chest wo con IMPRESSION: 1. Acute nondisplaced fracture of the right fifth anterior rib and probable acute nondisplaced fracture of the right fourth anterior rib. 2. No pneumothorax or other acute cardiopulmonary process. 3. Stable left thyroid nodule measuring approximately 1.9 cm in greatest dimension. Recommend follow-up ultrasound. 4. Stable subpleural scarring in the right middle and right lower lobes. Electronically authenticated by: KELL DELANEY Date: 02/19/2024 16:41
--- NOTE | 2024-02-19 15:17 | XR_ITS ---
The [address] [address] Patient Name: GÓMEZ CORTES MRN: [id number] date: 1955 Sex: M Assigned Patient Location: ER Current Patient Location: ER Accession/Order Number: [id number] Exam Date: 02/19/2024 15:50 Report Date: 02/19/2024 16:06 At the request of: TARSHA COLE Procedure: XR shoulder RT min 2V IMAGES REVIEWED: XR shoulder RT min 2V COMPARISON: 09/20/2023. CLINICAL INDICATION: fall FINDINGS/IMPRESSION: 1. No evidence of acute osseous abnormality of the right shoulder. 2. Osteopenia. 3. Moderate degenerative change. Electronically authenticated by: ORLANDO DICKINSON Date: 02/19/2024 16:06
--- NOTE | 2024-02-19 15:19 | ED_ITS ---
HPI HPI - General Adult General Chief complaint: Back Pain/Injury Stated complaint: FALL SHOULDER LOWER BCK PAIN Time Seen by Provider: 02/19/24 15:11 Source: patient Mode of arrival: walk-in History of Present Illness HPI narrative: Patient is a 69-year-old male who presents to the emergency department for multiple injuries over the last 2 weeks with multiple falls. He states 2 weeks ago he lost his balance and fell onto his tailbone. He is noted to be ambulatory with a walker with no difficulty. He reports pain in the tailbone, he also had another associated fall last week onto his right side injuring his right shoulder and right rib cage.He is unsure if he may have had his head but denies any loss of consciousness, persistent headaches, visual changes, nausea, vomiting, neck pain. He is noted to be able to move the right shoulder with no difficulty to remove his shirt but reports some soreness to the joint as well as to the right rib cage. No medications prior to arrival. He does not take blood thinners. Related Data Home Medications ?Medication ?Instructions ?Recorded ?Confirmed atorvastatin 10 mg tablet 10 mg PO .hs 05/12/23 12/30/23 citalopram 40 mg tablet 40 mg PO DAILY 05/12/23 12/30/23 meclizine 25 mg tablet 25 mg PO QID PRN dizziness 05/12/23 12/31/23 phenobarbital 32.4 mg tablet 32.4 mg PO Q12H 05/12/23 12/30/23 phenytoin sodium extended 100 mg 100 mg PO Q8H 05/12/23 12/30/23 capsule bupropion HCl 150 mg 24 hr tablet, 150 mg PO DAILY 12/30/23 12/31/23 extended release Previous Rx's ?Medication ?Instructions ?Recorded hydrocodone 5 mg-acetaminophen 325 1 tab PO Q6H PRN pain 3 days #12 02/19/24 mg tablet tabs methocarbamol 750 mg tablet 750 mg PO TID PRN pain #20 tabs 02/19/24 Allergies Allergy/AdvReac Type Severity Reaction Status Date / Time gabapentin Allergy Intermediate Verified 01/30/24 15:16 oxycodone [From OxyContin] Allergy Intermediate Verified 01/30/24 15:16 phenytoin [From Dilantin] Allergy Intermediate Verified 01/30/24 15:16 Opioid HPI Opioid Management Most Recent Opioid Data: Last Pain Scale 3 10/02/23 20:30 Review of Systems ROS Constitutional Denies: fever or chills Eyes Denies: increased production of tears Ears, nose, mouth, and throat Denies: throat pain, neck pain or nasal congestion Cardiovascular Denies: chest pain Respiratory Denies: shortness of breath or cough Gastrointestinal Denies: nausea or vomiting Musculoskeletal Reports: back pain and extremity pain; Denies: neck pain Integumentary/Breast Denies: rash Neurological Denies: headache Hematologic/Lymphatic Denies: easy bruising or easy bleeding PFSH PFSH Medical History (Updated 02/19/24 @ 16:39 by ANNABELLE Long) CAD, multiple vessel ?I25.10 - Atherosclerotic heart disease of [place] coronary artery without angina pectoris (ICD-10) 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 - Malignant neoplasm of mediastinum, part unspecified (ICD-10) Bladder cancer ?C67.9 - Malignant neoplasm of bladder, unspecified (ICD-10) HLD (hyperlipidemia) ?E78.5 - Hyperlipidemia, unspecified (ICD-10) Chest pain ?R07.9 - Chest pain, unspecified (ICD-10) Family History (Updated 12/31/23 @ 12:13 by Shaikh Florentin MD) Father Family history of myocardial infarction Sister Family history of cancer Social History Smoking status: Former smoker Highest level of school completed/degree received: Associate degree: occupational, technical, vocational program Gender Identity: male Exam Narrative Exam Narrative: Gen.: Awake, alert, in no distress Head: Normocephalic, atraumatic ENT: Moist mucous membranes, Well-healed surgical incision over the posterior cervical spine. C-spine is nontender with full range of motion Respiratory: No respiratory distress, lungs clear bilaterally Cardio: Regular rate and rhythm; Diffuse tenderness of the chest wall on the right with well-healed ecchymosis to the right posterior thoracic area, no crepitance or flail chest noted Back: No bony point tenderness of the T-spine or L-spine, no obvious deformity or step-off Extremities: Moves extremities equally, no injuries noted Psych: Normal mood and affect Neuro: No focal neuro deficit Skin: Warm, dry, intact Constitutional Vital Signs, click to edit/add: Last Vital Signs Temp 98.3 F 02/19/24 14:45 Pulse 76 02/19/24 14:45 Resp 18 02/19/24 14:45 BP 149/84 H 02/19/24 14:45 Pulse Ox 96 02/19/24 14:45 Course Vital Signs Vital signs: Vital Signs Temperature 98.3 F 02/19/24 14:45 Pulse Rate 76 02/19/24 14:45 Respiratory Rate 18 02/19/24 14:45 Blood Pressure 149/84 H 02/19/24 14:45 Pulse Oximetry 96 02/19/24 14:45 Temperature 98.3 F 02/19/24 14:45 Pulse Rate 76 02/19/24 14:45 Respiratory Rate 18 02/19/24 14:45 Blood Pressure 149/84 H 02/19/24 14:45 Pulse Oximetry 96 02/19/24 14:45 Medical Decision Making MDM Narrative Medical decision making narrative: Patient treated with ibuprofen as he drove himself to the emergency department. CT of the chest without contrast shows a nondisplaced fracture of the right fifth rib as well as a probable nondisplaced fracture of the right fourth rib. There is no pneumothorax, pulmonary contusion. CT of the pelvis is unremarkable and right shoulder x-rays are unremarkable as well. Patient's injury is over a week old. He is oxygenating without supplemental oxygen and able to ambulate and Drive. He is discharged home with a short course of analgesics, muscle relaxants to follow-up with his PCP. Return to the ER if symptoms change or worsen. Medical Records Medical records reviewed: Yes I reviewed the patient's medical records Imaging Data CT scan - chest: Attestation: I have reviewed the pertinent imaging results. Radiologist's impression: ITS Impressions Chest CT 02/19/24 15:17 IMPRESSION: 1. Acute nondisplaced fracture of the right fifth anterior rib and probable acute nondisplaced fracture of the right fourth anterior rib. 2. No pneumothorax or other acute cardiopulmonary process. 3. Stable left thyroid nodule measuring approximately 1.9 cm in greatest dimension. Recommend follow-up ultrasound. 4. Stable subpleural scarring in the right middle and right lower lobes. Electronically authenticated by: KELL DELANEY Date: 02/19/2024 16:[address] 02/19/24 15:17 IMPRESSION: No CT evidence of acute osseous abnormality of the pelvis. Nonspecific trace precoccygeal edema. If there is concern for coccygeal fracture recommend further evaluation with MRI, no obvious coccygeal fracture seen. Moderate osteoarthritis bilateral hips. Severe degenerative disc disease L4-L5. Severe lower lumbar facet arthropathy. Electronically authenticated by: ORLANDO DICKINSON Date: 02/19/2024 16:17 Discharge Plan Discharge Stand Alone Forms: Portal Instructions Chief Complaint: Back Pain/Injury Clinical Impression: Fracture of two ribs of right side, Tailbone injury, Fall Patient Disposition: Home, Self-Care Time of Disposition Decision: 16:38 Condition: Good Prescriptions / Home Meds: New hydrocodone-acetaminophen 5-325 mg tablet 1 tab PO Q6H PRN (Reason: pain) 3 Days Qty: 12 0RF Rx Instructions: M54.5 methocarbamol 750 mg tablet 750 mg PO TID PRN (Reason: pain) Qty: 20 0RF No Action bupropion HCl 150 mg tablet extended release 24 hr 150 mg PO DAILY atorvastatin 10 mg tablet 10 mg PO .hs citalopram 40 mg tablet 40 mg PO DAILY meclizine 25 mg tablet 25 mg PO QID PRN (Reason: dizziness) phenobarbital 32.4 mg tablet 32.4 mg PO Q12H phenytoin sodium extended 100 mg capsule 100 mg PO Q8H Print Language: Korean Instructions: Coccyx Injury (ED), Rib Fracture (ED) Referrals: Jignesh Manjarrez MD [Primary Care Provider] - 1 week
[2024-02-19] MEDS: IBUPROFEN 600 MG TABLET PO (16:58)
[2024-02-19] MEDS: HYDROCODONE/ACET 5-325 MG TABLET 2 TAB PO (16:59)
[2024-02-19] MEDS: METHOCARBAMOL 500 MG TABLET PO (17:00)
[2024-02-19 17:05] VITALS: BP 163/86; PULSE 72; O2SAT 97
== END 2024-02-19 17:08 | disposition home or self-care (01) ==
PROVIDERS: Emergency Provider Emergency Medicine; PCP Family Medicine
DX: S22.41XA Multiple fractures of ribs, right side, initial encounter for closed fracture (principal); S39.92XA Unspecified injury of lower back, initial encounter; W19.XXXA Unspecified fall, initial encounter; Z79.899 Other long term (current) drug therapy; I25.10 Atherosclerotic heart disease of native coronary artery without angina pectoris; E78.5 Hyperlipidemia, unspecified; Z85.51 Personal history of malignant neoplasm of bladder; Z85.29 Personal history of malignant neoplasm of other respiratory and intrathoracic organs; Z87.891 Personal history of nicotine dependence
CPT/HCPCS: 71250; 72192; 73030; 99285

== ENCOUNTER 2024-02-23 12:04 | Emergency (ER) | payer MEDICARE, MEDICAID, SELFPAY ==
[2024-02-23 12:05] VITALS: BP 156/79; PULSE 69; TEMP 36.7; O2SAT 93; BMI 37.7
--- OUTSIDE RECORDS SUMMARY | 2024-02-23 12:27 | XMS_ITS | CCD ---
Author Organization [facility] Care Team Providers Care Chemical Applicator Name Role Phone KARINA JAY Attending Unavailable [...] MAMIE ALFORD Consulting Unavailable HAY ., DR UBENROSTRO Admitting Unavailable HAY ., DR BUENROSTRO Attending [...] KELL Brizuela Consulting Unavailable NADEREChata, DR JIGNESH eMans Consulting Unavailable Luiz Riggs Unavailable MD Luiz Riggs Attending Provider [phone] MD Jignesh Gonsalez Primary Care Provider Luiz Riggs Attending Unavailable Luiz Riggs Admitting Unavailable Jignesh Gonsalez Primary Care Unavailable JIGNESH GONSALEZ Primary Care Physician Jose Marie DO Primary Care Provider Chris CAMARILLO Attending Unavailable JIGNESH GONSALEZ Referring Unavailable Chris CAMARILLO Attending Unavailable OVITT, CORNELIO Attending Unavailable OVBECKY, CORNELIO Referring Unavailable ROGERIO BAINS Referring Unavailable JIGNESH GONSALEZ Attending Unavailable JIGNESH GONSALEZ Attending Unavailable SHAIKH MOTLEY Attending Unavailable WALLACE, JIGNESH Attending Unavailable Allergies Allergy Classification Reported Allergen(s) Allergy Type Date of Onset Reaction(s) Facility (5 sources) gabapentin; Translations: [GABAPENTIN] Drug Allergy 0 [facility] Repository (2 sources) oxyCODONE Drug Allergy 0 [facility] (3 sources) Phenytoin; Translations: [Dilantin] Drug Allergy 0 [facility] (5 sources) gabapentin; Translations: [gabapentin] Drug Allergy 0 Unknown (qualifier value) [facility] (8 sources) oxyCODONE; Translations: [oxycodone] Drug Allergy 0 Difficulty breathing (finding), Angioedema [facility] (5 sources) Phenytoin; Translations: [phenytoin] Drug Allergy 6 Dizziness (finding), Dizziness [facility] (1 source) Phenytoin; Translations: [PHENYTOIN SODIUM EXTENDED] Drug Allergy 6 [facility] Repository (1 source) ALLERGIES NOT ON FILE; Translations: [ALLERGIES NOT ON FILE] Propensity to adverse reactions (disorder) [facility] Repository Medications Current Medications Medication Drug Class(es) Dates Sig (Normalized) Sig (Original) Acetaminophen / HYDROcodone (2 sources) Opioid Agonist [place] Active take 1 tablet by ambika th [...] 2 mg/ml injectable solution (1 source) vit I9-N3-T9-B5- B6 (B-COMPLEX INJECTION) 300-9-485-2-2 mg/mL solution B-Complex 1 QD 0 Active [...] 0 Active Meloxicam Not-Ta noa Meloxicam Active gfiiukezakys-wrskcekl-inkllf (MULTIVITAMIN 50 PLUS) tablet (1 source) multivitamin-min erals-lutein (MULTIVITAMIN 50 PLUS) tablet daily. 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; 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] Onset: 12-27-2022 Episodic Other aftercare (1 source) Other long-term (current) drug therapy; Translations: [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 Normal [facility] XR lumbar spine 6V w bending on 07-05-2023 XR lumbar spine 6V w bending [facility] [place] [address] XRay Report Signed Patient: Nazario Cortes Jr MR#: [id number] : 1955 Acct:[id number] Age/Sex: 68 / M ADM Date: 07/05/23 Loc: XD Room: Type: [facility] Attending Dr: Luiz Riggs MD Copies to: [...] Hoa Lockwood M.D.07/05/2023 2:21 PM Dictation Location: [facility]- Transcribed By: [facility] 07/05/23 1421 Dictated By: Hoa Lockwood MD 07/05/23 1415 Signed By: 07/05/23 1421 [facility] US CAROTID ART BILon 023 US CAROTID [...] by: KELL BLANDON Date: 2023-01-11 08:42 [facility] ECHOCARDIO M/2D COMPLETEon 0 01-07-2023 ECHOCARDIO M/2D COMPLETE Patient: NAZARIO CORTES Exam Date: 01/07/2023 : 1955 Gender:M Ordering : DR JIGNESH GONSALEZ . Admission #: [id number] Family : Order #: [id number] CLICK HERE TO VIEW EXAM ECHOCARDIOGRAM REPORT [...] Arcadio Smith M.D. on 01/11/2023 at 18:23 [facility] LT MIN 3 VIEWSon XR ELBOW LT [...] VIDAL FRASER Date: 2022-12-24 20:23 Normal [facility] XR HIP LT 2 3V W PELVISon XR HIP LT 2 3V W PELVIS EXAM: XR HIP LT 2 3V W PELVIS HISTORY: Bone injury COMPARISON: None. TECHNIQUE: 3 views of the left hip FINDINGS: No acute fracture is seen. Joint alignment is normal. Joint spaces are preserved. Soft tissues appear unremarkable. IMPRESSION: No acute fracture or malalignment. Electronically authenticated by: VIDAL KRYTSAL Date: 2022-12-24 20:21 Normal [facility] XR HUMERUS LT MIN 2Von 12-24 [...] by: KELL DELANEY Date: 2022-12-24 21:03 [facility] CBC AUTO DIFFon 11-04-2022 BASO # 0.1 103/ul Normal 0.0-0.1 [facility] Comment on above: Performed By: #### B MP, CMREP, LIPID #### [facility] [address] [address] [address] Jeimy Tenorio Basophils/100 WBC (Bld) 0.9 % Normal 0.2-2.0 [facility] Comment on above: Performed By: #### B MP, CMREP, LIPID #### [facility] [address] [address] [address] Jeimy Tenorio EO # 0.3 103/ul Normal 0.0-0.7 [facility] Comment on above: Performed By: #### B MP, CMREP, LIPID #### [facility] [address] [place] [address] Dr. Jeimy Tenorio Eosinophils/100 WBC (Bld) 5.2 % Normal 0.9-7.0 [facility] Comment on above: Performed By: #### B MP, CMREP, LIPID #### [facility] [address] [place] [address] Dr. Jeimy Tenorio Erythrocyte distribution width (RBC) [Ratio] 12.9 % Normal 11.0-15.0 [facility] Comment on above: Performed By: #### B MP, CMREP, LIPID #### [facility] [address] [place] [address] Dr. Jeimy Tenorio Hematocrit (Bld) [Volume fraction] 39.5 % Critically low 42.0-54.0 [facility] Comment on above: Performed By: #### B MP, CMREP, LIPID #### [facility] [address] [place] [address] Dr. Jeimy Tenorio Hemoglobin (Bld) [Mass/Vol] 13.1 g/dL Critically low 14.0-18.0 [facility] Comment on above: Performed By: #### B MP, CMREP, LIPID #### [facility] [address] [place] [address] Dr. Jeimy Tenorio IG # 0.03 10e3/ul Normal 0.00-0.03 [facility] Comment on above: Performed By: #### B MP, CMREP, LIPID #### [facility] [address] [place] [address] Dr. Jeimy Tenorio IG % 0.5 % Normal 0.0-0.5 [facility] Comment on above: Performed By: #### B MP, CMREP, LIPID #### [facility] [address] [place] [address] Dr. Jeimy Tenorio LYMPH # 1.5 103/ul Normal 1.2-3.8 [facility] Comment on above: Performed By: #### B MP, CMREP, LIPID #### [facility] [address] [place] [address] Dr. Jeimy Tenorio Lymphocytes/100 WBC (Bld) 22.6 % Normal 20.5-60.0 [facility] Comment on above: Performed By: #### B MP, CMREP, LIPID #### [facility] [address] [place] [address] Dr. Jeimy Tenorio MANUAL DIFF REQ NO Normal [facility] Comment on above: Performed By: #### B MP, CMREP, LIPID #### [facility] [address] [place] [address] Dr. Jeimy Tenorio MCH (RBC) [Entitic mass] 32.8 pg Normal 25.9-34.0 [facility] Comment on above: Performed By: #### B MP, CMREP, LIPID #### [facility] [address] [place] [address] Dr. Jeimy Tenorio MCHC (RBC) [Mass/Vol] 33.2 g/dL Normal 29.9-35.2 [facility] Comment on above: Performed By: #### B MP, CMREP, LIPID #### [facility] [address] [place] [address] Dr. Jeimy Tenorio MCV (RBC) [Entitic vol] 99.0 fL Critically high 80.0-94.0 [facility] Comment on above: Performed By: #### B MP, CMREP, LIPID #### [facility] [address] [place] [address] Dr. Jeimy Tenorio MONO # 0.7 103/ul Normal 0.3-0.8 [facility] Comment on above: Performed By: #### B MP, CMREP, LIPID #### [facility] [address] [place] [address] Dr. Jeimy Tenorio Monocytes/100 WBC (Bld) 10.6 % Normal 1.7-12.0 [facility] Comment on above: Performed By: #### B MP, CMREP, LIPID #### [facility] [address] [place] [address] Dr. Jeimy Tenorio NEUT # 4.0 103/ul Normal 1.4-6.5 [facility] Comment on above: Performed By: #### B MP, CMREP, LIPID #### [facility] [address] [place] [address] Dr. Jeimy Tenorio Neutrophils/100 WBC (Bld) 60.2 % Normal 43.0-75.0 [facility] Comment on above: Performed By: #### B MP, CMREP, LIPID #### [facility] [address] [place] [address] Dr. Jeimy Tenorio Platelet mean volume (Bld) [Entitic vol] 9.7 fL Normal 9.5-13.5 [facility] Comment on above: Performed By: #### B MP, CMREP, LIPID #### [facility] [address] [place] [address] Dr. Jeimy Tenorio PLT 176 103/ul Normal 150-450 [facility] Comment on above: Performed By: #### B MP, CMREP, LIPID #### [facility] [address] [place] [address] Dr. Jeimy Tenorio RBC 3.99 106/ul Critically low 4.70-6.10 [facility] Comment on above: Performed By: #### B MP, CMREP, LIPID #### [facility] [address] [place] [address] Dr. Jeimy Tenorio WBC 6.6 103/ul Normal 4.0-11.0 [facility] Comment on above: Performed By: #### B MP, CMREP, LIPID #### [facility] [address] [place] [address] HEAD WO CONon [...] ALEJANDRO PINEDA Date: 2022-11-04 14:08 Normal [facility]21 SARS-CoV-2 (COVID-19) RNA ALEX+probe Ql (Unsp spec) Not detected Normal NOT DETECTED [facility] Comment on above: Result Comment: This test is not yet approved or cleared by the [place] FDA. When there are no FDA-approved or cleared tests available, and other criteria are met, FDA can make tests available under an emergency access mechanism called an Emergency Use Authorization (EUA). The EUA for this test is supported by the Lock Installer of Health and Human Service's (HHS's) declaration [...] By: #### B MP, CMREP, LIPID #### [facility] [address] [address] [address] Jeimy Tenorio INFLUENZA A AND B AGon 11-04 INFLUANEGH SEE BELOW Normal [facility] Comment on above: Result Comment: Nega tive for Flu A protein angiten. Infection due to Flu A cannot be ruled out. Flu A angiten in the sample may be below the detection limit of the test. Performed By: #### I NFLUAB #### [facility] [address] [place] [address] Dr. Jeimy Tenorio [facility] SEE BELOW Normal [facility] Comment on above: Result Comment: Nega tive for Flu B protein antigen. Infection due to Flu B cannot be ruled out. Flu B antigen in the sample may be below the detection limit of the test. Performed By: #### I NFLUAB #### [facility] [address] [place] [address] Dr. Jeimy Tenorio INFLUENZA A AG Negative Normal NEGATIVE SEE COMMENT [facility] Comment on above: Performed By: #### I NFLUAB #### [facility] [address] [place] [address] Dr. Jeimy Tenorio INFLUENZA B AG Negative Normal NEGATIVE SEE COMMENT [facility] Comment on above: Performed By: #### I NFLUAB #### [facility] [address] [place] [address] Dr. Jeimy Tenorio INTERNAL CONTROLS Within Normal Limits Normal Wi thin Normal Limits [facility] Comment on above: Performed By: #### I NFLUAB #### [facility] [address] [place] [address] Dr. Jeimy Tenorio PROF CHEM 8 (BAS METB)on Anion gap [Moles/Vol] 9.7 mmol/L Normal [facility] Comment on above: Performed By: #### C BC #### [facility] [address] [place] [address] Dr. Jeimy Tenorio Calcium [Mass/Vol] 8.0 mg/dL Critically low 8.5-10.1 [facility] Comment on above: Performed By: #### C BC #### [facility] [address] [place] [address] Dr. Jeimy Tenorio Chloride [Moles/Vol] 104 mmol/L Normal 98-107 [facility] Comment on above: Performed By: #### C BC #### [facility] [address] [address] [address] Jeimy Tenorio CO2 [Moles/Vol] 31.1 mmol/L Normal 21.0-32.0 [facility] Comment on above: Performed By: #### C BC #### [facility] [address] [address] [address] Jeimy Tenorio Creatinine [Mass/Vol] 0.75 mg/dL Normal 0.70-1.30 [facility] Comment on above: Performed By: #### C BC #### [facility] [address] [address] [address] Jeimy Tenorio EGFR-AF UKRAINIAN >60 Normal >=60 [facility] Comment on above: Performed By: #### C BC #### [facility] [address] [address] [address] Jeimy Tenorio EGFR-NON AF UKRAINIAN >60 Normal >=60 [facility] Comment on above: Performed By: #### C BC #### [facility] [address] [address] [address] Jeimy Tenorio Glucose [Mass/Vol] 76 mg/dL Normal 74-106 [facility] Comment on above: Performed By: #### C BC #### [facility] [address] [address] [address] Jeimy Tenorio Potassium [Moles/Vol] 3.8 mmol/L Normal 3.5-5.1 [facility] Comment on above: Performed By: #### C BC #### [facility] [address] [address] [address] Jeimy Tenorio Sodium [Moles/Vol] 141 mmol/L Normal 136-145 [facility] Comment on above: Performed By: #### C BC #### [facility] [address] [address] [address] Jeimy Tenorio Urea nitrogen [Mass/Vol] 12.0 mg/dL Normal 7.0-18.0 [facility] Comment on above: Performed By: #### C BC #### [facility] [address] [place] [address] Dr. Jeimy Tenorio Urea nitrogen/Creatinine [Mass ratio] 16.0 mg/mg Normal [facility] Comment on above: Performed By: #### C BC #### [facility] [address] [place] [address] Dr. Jeimy Tenorio TROPONIN, HIGH SENSITIVITYon 11-04-2022 HSTROP 5.8 pg/mL Normal 4.0-76.1 [facility] Comment on above: Result Comment: CUT- OFF POINTS HAVE BEEN ESTABLISHED BASED ON THE FOURTH UNIVERSAL DEFINITIONS OF MYOCARDIAL INFARCTION. THE UPPER REFERENCE LIMIT (URL) OF TROPONIN, DEFINED THE 99TH PERCENTILE OF cTnI DISTRIBUTION IN A REFERENCE POPULATION, HAS BEEN CONFIRMED THE DECISION THRESHOLD FOR MA DIAGNOSIS. Performed By: #### C BC #### [facility] [address] [place] [address] Dr. Jeimy Tenorio CBC AUTO DIFFon 09-29-2022 BASO # 0.1 103/ul Normal 0.0-0.1 [facility] Comment on above: Performed By: #### B MP, CMREP, LIPID #### [facility] [address] [place] [address] Dr. Jeimy Tenorio Basophils/100 WBC (Bld) 1.2 % Normal 0.2-2.0 [facility] Comment on above: Performed By: #### B MP, CMREP, LIPID #### [facility] [address] [place] [address] Dr. Jeimy Tenorio EO # 0.3 103/ul Normal 0.0-0.7 [facility] Comment on above: Performed By: #### B MP, CMREP, LIPID #### [facility] [address] [place] [address] Dr. Jeimy Tenorio Eosinophils/100 WBC (Bld) 4.9 % Normal 0.9-7.0 [facility] Comment on above: Performed By: #### B MP, CMREP, LIPID #### [facility] [address] [place] [address] Dr. Jeimy Tenorio Erythrocyte distribution width (RBC) [Ratio] 13.2 % Normal 11.0-15.0 [facility] Comment on above: Performed By: #### B MP, CMREP, LIPID #### [facility] [address] [place] [address] Dr. Jeimy Tenorio Hematocrit (Bld) [Volume fraction] 42.3 % Normal 42.0-54.0 [facility] Comment on above: Performed By: #### B MP, CMREP, LIPID #### [facility] [address] [place] [address] Dr. Jeimy Tenorio Hemoglobin (Bld) [Mass/Vol] 13.8 g/dL Critically low 14.0-18.0 [facility] Comment on above: Performed By: #### B MP, CMREP, LIPID #### [facility] [address] [place] [address] Dr. Jeimy Tenorio IG # 0.02 10e3/ul Normal 0.00-0.03 [facility] Comment on above: Performed By: #### B MP, CMREP, LIPID #### [facility] [address] [place] [address] Dr. Jeimy Tenorio IG % 0.3 % Normal 0.0-0.5 [facility] Comment on above: Performed By: #### B MP, CMREP, LIPID #### [facility] [address] [place] [address] Dr. Jeimy Tenorio LYMPH # 1.3 103/ul Normal 1.2-3.8 [facility] Comment on above: Performed By: #### B MP, CMREP, LIPID #### [facility] [address] [place] [address] Dr. Jeimy Tenorio Lymphocytes/100 WBC (Bld) 19.5 % Critically low 20.5-60.0 [facility] Comment on above: Performed By: #### B MP, CMREP, LIPID #### [facility] [address] [place] [address] Dr. Jeimy Tenorio MANUAL DIFF REQ NO Normal [facility] Comment on above: Performed By: #### B MP, CMREP, LIPID #### [facility] [address] [place] [address] Dr. Jeimy Tenorio MCH (RBC) [Entitic mass] 32.9 pg Normal 25.9-34.0 [facility] Comment on above: Performed By: #### B MP, CMREP, LIPID #### [facility] [address] [place] [address] Dr. Jeimy Tenorio MCHC (RBC) [Mass/Vol] 32.6 g/dL Normal 29.9-35.2 [facility] Comment on above: Performed By: #### B MP, CMREP, LIPID #### [facility] [address] [place] [address] Dr. Jeimy Tenorio MCV (RBC) [Entitic vol] 100.7 fL Critically high 80.0-94.0 [facility] Comment on above: Performed By: #### B MP, CMREP, LIPID #### [facility] [address] [place] [address] Dr. Jeimy Tenorio MONO # 0.7 103/ul Normal 0.3-0.8 [facility] Comment on above: Performed By: #### B MP, CMREP, LIPID #### [facility] [address] [place] [address] Dr. Jeimy Tenorio Monocytes/100 WBC (Bld) 9.9 % Normal 1.7-12.0 [facility] Comment on above: Performed By: #### B MP, CMREP, LIPID #### [facility] [address] [place] [address] Dr. Jeimy Tenorio NEUT # 4.3 103/ul Normal 1.4-6.5 [facility] Comment on above: Performed By: #### B MP, CMREP, LIPID #### [facility] [address] [place] [address] Dr. Jeimy Tenorio Neutrophils/100 WBC (Bld) 64.2 % Normal 43.0-75.0 [facility] Comment on above: Performed By: #### B MP, CMREP, LIPID #### [facility] [address] [place] [address] Dr. Jeimy Tenorio Platelet mean volume (Bld) [Entitic vol] 10.4 fL Normal 9.5-13.5 [facility] Comment on above: Performed By: #### B MP, CMREP, LIPID #### [facility] [address] [address] [address] Jeimy Tenorio PLT 209 103/ul Normal 150-450 [facility] Comment on above: Performed By: #### B MP, CMREP, LIPID #### [facility] [address] [address] [address] Jeimy Tenorio RBC 4.20 106/ul Critically low 4.70-6.10 [facility] Comment on above: Performed By: #### B MP, CMREP, LIPID #### [facility] [address] [address] [address] Jeimy Tenorio WBC 6.7 103/ul Normal 4.0-11.0 [facility] Comment on above: Performed By: #### B MP, CMREP, LIPID #### [facility] [address] [place] [address] Dr. Jeimy Tenorio DILANTINon 09-29-2022 Phenytoin [Mass/Vol] 23.7 ug/mL Critically high 10.0-20.0 [facility] Comment on above: Performed By: #### C BC #### [facility] [address] [place] [address] Dr. Jeimy Tenorio GLYCOHEMOGLOBIN A1Con 2021 ADA RECOMMENDATION SEE BELOW Normal [facility] Comment on above: Result Comment: ADA RECOMMENDED LIMIT 4.0 - 6.0 ADA THERAPEUTIC TARGET < 7.0 ACTION SUGGESTED > 7.0 Performed By: #### A 1C #### [facility] [address] [place] [address] Dr. Jeimy Tenorio Glucose [Mass/Vol] 105 mg/dL Normal [facility] Comment on above: Performed By: #### A 1C #### [facility] [address] [place] [address] Dr. Jeimy Tenorio HbA1c (Bld) [Mass fraction] 5.3 % Normal 4.5-6.2 [facility] Comment on above: Performed By: #### A 1C #### [facility] [address] [place], [place] [id number] Dr. Jeimy Tenorio LIPID PROFILEon 09-29-2022 CHOL-HDL RATIO NORM SEE BELOW Normal [facility] Comment on above: Result Comment: 3.3 - 4.4 LOW RISK 4.4 - 7.1 AVERAGE RISK 7.1 - 11.0 MODERATE RISK >11.0 HIGH RISK Performed By: #### B MP, CMREP, LIPID #### [facility] [address] [place] [address] Dr. Jeimy Tenorio Cholesterol [Mass/Vol] 178 mg/dL Normal <=200 [facility] Comment on above: Performed By: #### B MP, CMREP, LIPID #### [facility] [address] [place] [address] Dr. Jeimy Tenorio Cholesterol in HDL [Mass/Vol] 56 mg/dL Normal 40-60 [facility] Comment on above: Performed By: #### B MP, CMREP, LIPID #### [facility] [address] [place] [address] Dr. Jeimy Tenorio Cholesterol in LDL [Mass/Vol] 86.8 mg/dL Normal [facility] Comment on above: Performed By: #### B MP, CMREP, LIPID #### [facility] [address] [place] [address] Dr. Jeimy Tenorio Cholesterol.total/Ch olesterol in HDL [Mass ratio] 3.2 {ratio} Normal [facility] Comment on above: Performed By: #### B MP, CMREP, LIPID #### [facility] [address] [place] [address] Dr. Jeimy Tenorio HDL NORMAL > or = 60 mg/dl - LO W CARDIOVASCULAR RISK <40 mg/dl - HIGH CARDIOVASCULAR RISK Normal [facility] Comment on above: Performed By: #### B MP, CMREP, LIPID #### [facility] [address] [place] [address] Dr. Jeimy Tenorio LDL CALC NORMAL SEE BELOW Normal [facility] Comment on above: Result Comment: <100 mg/dl OPTIMAL 100 - 129 mg/dl NEAR OR ABOVE OPTIMAL 130 - 159 mg/dl BORDERLINE HIGH 160 - 189 mg/dl HIGH >190 mg/dl VERY HIGH Performed By: #### B MP, CMREP, LIPID #### [facility] [address] [address] [address] Jeimy Tenorio Triglyceride [Mass/Vol] 176 mg/dL Critically high <=150 [facility] Comment on above: Performed By: #### B MP, CMREP, LIPID #### [facility] [address] [address] [address] Jeimy Tenorio VLDL CALC 35.2 mg/dL Normal [facility] Comment on above: Performed By: #### B MP, CMREP, LIPID #### [facility] [address] [address] [address] Jeimy Tenorio LIVER PROFILEon 09-29-2022 Albumin [Mass/Vol] 3.5 g/dL Normal 3.4-5.0 [facility] Comment on above: Performed By: #### B MP, CMREP, LIPID #### [facility] [address] [place] [address] Dr. Jeimy Tenorio Albumin/Globulin [Mass ratio] 0.8 {ratio} Normal [facility] Comment on above: Performed By: #### B MP, CMREP, LIPID #### [facility] [address] [place] [address] Dr. Jeimy Tenorio ALP [Catalytic activity/Vol] 139 U/L Critically high 46-116 [facility] Comment on above: Performed By: #### B MP, CMREP, LIPID #### [facility] [address] [place] [address] Dr. Jeimy Tenorio ALT [Catalytic activity/Vol] 25 U/L Normal 16-63 [facility] Comment on above: Performed By: #### B MP, CMREP, LIPID #### [facility] [address] [place] [address] Dr. Jeimy Tenorio AST [Catalytic activity/Vol] 23 U/L Normal 15-37 [facility] Comment on above: Performed By: #### B MP, CMREP, LIPID #### [facility] [address] [place] [address] Dr. Jeimy Tenorio BILI, CONJUGATED 0.0 mg/dL Normal 0.0-0.2 [facility] Comment on above: Performed By: #### B MP, CMREP, LIPID #### [facility] [address] [place] [address] Dr. Jeimy Tenorio Bilirubin [Mass/Vol] 0.3 mg/dL Normal 0.2-1.0 [facility] Comment on above: Performed By: #### B MP, CMREP, LIPID #### [facility] [address] [place] [address] Dr. Jeimy Tenorio Globulin (S) [Mass/Vol] 4.3 g/dL Normal [facility] Comment on above: Performed By: #### B MP, CMREP, LIPID #### [facility] [address] [place] [address] Dr. Jeimy Tenorio Protein [Mass/Vol] 7.8 g/dL Normal 6.4-8.2 [facility] Comment on above: Performed By: #### B MP, CMREP, LIPID #### [facility] [address] [place] [address] Dr. Jeimy Tenorio PROF CHEM 8 (BAS METB)on Anion gap [Moles/Vol] 8.7 mmol/L Normal [facility] Comment on above: Performed By: #### B MP, CMREP, LIPID #### [facility] [address] [place] [address] Dr. Jeimy Tenorio Calcium [Mass/Vol] 8.7 mg/dL Normal 8.5-10.1 [facility] Comment on above: Performed By: #### B MP, CMREP, LIPID #### [facility] [address] [place] [address] Dr. Jeimy Tenorio Chloride [Moles/Vol] 104 mmol/L Normal 98-107 [facility] Comment on above: Performed By: #### B MP, CMREP, LIPID #### [facility] [address] [place] [address] Dr. Jeimy Tenorio CO2 [Moles/Vol] 29.8 mmol/L Normal 21.0-32.0 [facility] Comment on above: Performed By: #### B MP, CMREP, LIPID #### [facility] [address] [address] [address] Jeimy Tenorio Creatinine [Mass/Vol] 0.76 mg/dL Normal 0.70-1.30 [facility] Comment on above: Performed By: #### B MP, CMREP, LIPID #### [facility] [address] [address] [address] Jeimy Tenorio EGFR-AF UKRAINIAN >60 Normal >=60 [facility] Comment on above: Performed By: #### B MP, CMREP, LIPID #### [facility] [address] [address] [address] Jeimy Tenorio EGFR-NON AF UKRAINIAN >60 Normal >=60 [facility] Comment on above: Performed By: #### B MP, CMREP, LIPID #### [facility] [address] [address] [address] Jeimy Tenorio Glucose [Mass/Vol] 95 mg/dL Normal 74-106 [facility] Comment on above: Performed By: #### B MP, CMREP, LIPID #### [facility] [address] [address] [address] Jeimy Tenorio Potassium [Moles/Vol] 4.5 mmol/L Normal 3.5-5.1 [facility] Comment on above: Performed By: #### B MP, CMREP, LIPID #### [facility] [address] [address] [address] Jeimy Tenorio Sodium [Moles/Vol] 138 mmol/L Normal 136-145 [facility] Comment on above: Performed By: #### B MP, CMREP, LIPID #### [facility] [address] [address] [address] Jeimy Tenorio Urea nitrogen [Mass/Vol] 18.0 mg/dL Normal 7.0-18.0 [facility] Comment on above: Performed By: #### B MP, CMREP, LIPID #### [facility] [address] [address] [address] Jeimy Tenorio Urea nitrogen/Creatinine [Mass ratio] 23.7 mg/mg Normal [facility] Comment on above: Performed By: #### B MP, CMREP, LIPID #### [facility] [address] [place] [address] Dr. Jeimy Tenorio TSHon 09-29-2022 TSH 1.694 uIU/mL Normal 0.358-3.740 [facility] Comment on above: Performed By: #### B MP, CMREP, LIPID #### [facility] [address] [place] [address] Dr. Jeimy Tenorio CARDIAC SAWYER 3-6on 2 CK [Catalytic activity/Vol] 47 U/L Normal 39-308 [facility] Comment on above: Performed By: #### B MP, CMREP, LIPID #### [facility] [address] [place] [address] Dr. Jeimy Tenorio CK.MB [Mass/Vol] 0.77 ng/mL Normal <=3.60 [facility] Comment on above: Performed By: #### B MP, CMREP, LIPID #### [facility] [address] [place] [address] Dr. Jeimy Tenorio HSTROP 6.9 pg/mL Normal 4.0-76.1 [facility] Comment on above: Result Comment: CUT- OFF POINTS HAVE BEEN ESTABLISHED BASED ON THE FOURTH UNIVERSAL DEFINITIONS OF MYOCARDIAL INFARCTION. THE UPPER REFERENCE LIMIT (URL) OF TROPONIN, DEFINED THE 99TH PERCENTILE OF cTnI DISTRIBUTION IN A REFERENCE POPULATION, HAS BEEN CONFIRMED THE DECISION THRESHOLD FOR [place] DIAGNOSIS. Performed By: #### B MP, CMREP, LIPID #### [facility] [address] [place] [address] Dr. Jeimy Tenorio CK [Catalytic activity/Vol] 53 U/L Normal 39-308 [facility] Comment on above: Performed By: #### C BC #### [facility] [address] [place] [address] Dr. Jeimy Tenorio CK.MB [Mass/Vol] 0.80 ng/mL Normal <=3.60 [facility] Comment on above: Performed By: #### C BC #### [facility] [address] [place] [address] Dr. Jeimy Tenorio HSTROP 6.2 pg/mL Normal 4.0-76.1 [facility] Comment on above: Result Comment: CUT- OFF POINTS HAVE BEEN ESTABLISHED BASED ON THE FOURTH UNIVERSAL DEFINITIONS OF MYOCARDIAL INFARCTION. THE UPPER REFERENCE LIMIT (URL) OF TROPONIN, DEFINED THE 99TH PERCENTILE OF cTnI DISTRIBUTION IN A REFERENCE POPULATION, HAS BEEN CONFIRMED THE DECISION THRESHOLD FOR [place] DIAGNOSIS. Performed By: #### C BC #### [facility] [address] [place] [address] Dr. Jeimy Tenorio CBC AUTO DIFFon 06-12-2022 BASO # 0.1 103/ul Normal 0.0-0.1 [facility] Comment on above: Performed By: #### C BC #### [facility] [address] [place] [address] Dr. Jeimy Tenorio Basophils/100 WBC (Bld) 0.9 % Normal 0.2-2.0 [facility] Comment on above: Performed By: #### C BC #### [facility] [address] [place] [address] Dr. Jeimy Tenorio EO # 0.3 103/ul Normal 0.0-0.7 [facility] Comment on above: Performed By: #### C BC #### [facility] [address] [place] [address] Dr. Jeimy Tenorio Eosinophils/100 WBC (Bld) 5.2 % Normal 0.9-7.0 [facility] Comment on above: Performed By: #### C BC #### [facility] [address] [place] [address] Dr. Jeimy Tenorio Erythrocyte distribution width (RBC) [Ratio] 13.0 % Normal 11.0-15.0 [facility] Comment on above: Performed By: #### C BC #### [facility] [address] [place] [address] Dr. Jeimy Tenorio Hematocrit (Bld) [Volume fraction] 39.1 % Critically low 42.0-54.0 [facility] Comment on above: Performed By: #### C BC #### [facility] [address] [place] [address] Dr. Jeimy Tenorio Hemoglobin (Bld) [Mass/Vol] 13.2 g/dL Critically low 14.0-18.0 [facility] Comment on above: Performed By: #### C BC #### [facility] [address] [place] [address] Dr. Jeimy Tenorio IG # 0.03 10e3/ul Normal 0.00-0.03 [facility] Comment on above: Performed By: #### C BC #### [facility] [address] [place] [address] Dr. Jeimy Tenorio IG % 0.5 % Normal 0.0-0.5 [facility] Comment on above: Performed By: #### C BC #### [facility] [address] [place] [address] Dr. Jeimy Tenorio LYMPH # 1.7 103/ul Normal 1.2-3.8 [facility] Comment on above: Performed By: #### C BC #### [facility] [address] [place] [address] Dr. Jeimy Tenorio Lymphocytes/100 WBC (Bld) 26.0 % Normal 20.5-60.0 [facility] Comment on above: Performed By: #### C BC #### [facility] [address] [place] [address] Dr. Jeimy Tenorio MANUAL DIFF REQ NO Normal [facility] Comment on above: Performed By: #### C BC #### [facility] [address] [place] [address] Dr. Jeimy Tenorio MCH (RBC) [Entitic mass] 33.2 pg Normal 25.9-34.0 [facility] Comment on above: Performed By: #### C BC #### [facility] [address] [place] [address] Dr. Jeimy Tenorio MCHC (RBC) [Mass/Vol] 33.8 g/dL Normal 29.9-35.2 [facility] Comment on above: Performed By: #### C BC #### [facility] [address] [place] [address] Dr. Jeimy Tenorio MCV (RBC) [Entitic vol] 98.5 fL Critically high 80.0-94.0 [facility] Comment on above: Performed By: #### C BC #### [facility] [address] [place] [address] Dr. Jeimy Tenorio MONO # 0.8 103/ul Normal 0.3-0.8 [facility] Comment on above: Performed By: #### C BC #### [facility] [address] [place] [address] Dr. Jeimy Tenorio Monocytes/100 WBC (Bld) 12.2 % Critically high 1.7-12.0 [facility] Comment on above: Performed By: #### C BC #### [facility] [address] [place] [address] Dr. Jeimy Tenorio NEUT # 3.6 103/ul Normal 1.4-6.5 [facility] Comment on above: Performed By: #### C BC #### [facility] [address] [place] [address] Dr. Jeimy Tenorio Neutrophils/100 WBC (Bld) 55.2 % Normal 43.0-75.0 [facility] Comment on above: Performed By: #### C BC #### [facility] [address] [place] [address] Dr. Jeimy Tenorio Platelet mean volume (Bld) [Entitic vol] 9.9 fL Normal 9.5-13.5 [facility] Comment on above: Performed By: #### C BC #### [facility] [address] [place] [address] Dr. Jeimy Tenorio PLT 174 103/ul Normal 150-450 [facility] Comment on above: Performed By: #### C BC #### [facility] [address] [place], [place] [id number] Dr. Jeimy Tenorio RBC 3.97 106/ul Critically low 4.70-6.10 [facility] Comment on above: Performed By: #### C BC #### [facility] [address] [place] [address] Dr. Jeimy Tenorio WBC 6.5 103/ul Normal 4.0-11.0 [facility] Comment on above: Performed By: #### C #### [facility] [address] [address] [address] Jeimy Tenorio CTA CHEST WO W [...] MAMIE SAID Date: 2022-06-12 00:21 Normal [facility] Covid-19 PCR (CVDTBH)on 05-22 SARS-CoV-2 (COVID-19) RNA ALEX+probe Ql (Unsp spec) Not detected Normal NOT DETECTED [facility] Comment on above: Result Comment: When [...] for this test is supported by the Lock Installer of Health and Human Service's declaration that [...] By: #### B MP, CMREP, LIPID #### [facility] [address] [place] [address] Dr. Jeimy Tenorio ER URINE PROFILEon 2 Bilirubin Ql (U) Negative Normal NEGATIVE [facility] Comment on above: Performed By: #### E RUR #### [facility] [address] [place] [address] Dr. Jeimy Tenorio Clarity (U) CLEAR Normal CLEAR [facility] Comment on above: Performed By: #### E RUR #### [facility] [address] [place] [address] Dr. Jeimy Tenorio Color (U) LT. YELLOW Normal YELLOW [facility] Comment on above: Performed By: #### E RUR #### [facility] [address] [place] [address] Dr. Jeimy BROWNINGVictorina A micrscopic examination will be performed if indicated. Normal [facility] Comment on above: Performed By: #### E RUR #### [facility] [address] [place] [address] Dr. Jeimy Tenorio Glucose Ql (U) Negative Normal NEGATIVE [facility] Comment on above: Performed By: #### E RUR #### [facility] [address] [place] [address] Dr. Jeimy Tenorio Hemoglobin Ql (U) Negative Normal NEGATIVE [facility] Comment on above: Performed By: #### E RUR #### [facility] [address] [place] [address] Dr. Jeimy Tenorio Ketones Ql (U) TRACE Abnormal NEGATIVE [facility] Comment on above: Performed By: #### E RUR #### [facility] [address] [place] [address] Dr. Jeimy Tenorio LEUKOCYTES Negative Normal NEGATIVE [facility] Comment on above: Performed By: #### E RUR #### [facility] [address] [place] [address] Dr. Jeimy Tenorio Nitrite Ql (U) Negative Normal NEGATIVE [facility] Comment on above: Performed By: #### E RUR #### [facility] [address] [place] [address] Dr. Jeimy Tenorio pH (U) 5.5 [pH] Normal 5-9 [facility] Comment on above: Performed By: #### E RUR #### [facility] [address] [place] [address] Dr. Jeimy Tenorio SPEC GRAVITY 1.010 Normal 1.005-<=1.025 [facility] Comment on above: Performed By: #### E RUR #### [facility] [address] [place] [address] Dr. Jeimy Tenorio UA PROTEIN Negative Normal NEGATIVE/ TRACE [facility] Comment on above: Performed By: #### E RUR #### [facility] [address] [place] [address] Dr. Jeimy Tenorio UR MICRO IND NOT INDICATED Normal [facility] Comment on above: Performed By: #### E RUR #### [facility] [address] [place] [address] Dr. Jeimy Tenorio Urobilinogen Qn (U) 0.2 {Raphael'U}/dL Normal 0.2 - 1. 0 [facility] Comment on above: Performed By: #### E RUR #### [facility] [address] [place] [address] Dr. Jeimy Tenorio GLYCOHEMOGLOBIN A1Con 2021 ADA RECOMMENDATION SEE BELOW Normal [facility] Comment on above: Result Comment: ADA RECOMMENDED LIMIT 4.0 - 6.0 ADA THERAPEUTIC TARGET < 7.0 ACTION SUGGESTED > 7.0 Performed By: #### C BC #### [facility] [address] [address] [address] Jeimy Tenorio Glucose [Mass/Vol] 103 mg/dL Normal [facility] Comment on above: Performed By: #### C BC #### [facility] [address] [address] [address] Jeimy Tenorio HbA1c (Bld) [Mass fraction] 5.2 % Normal 4.5-6.2 [facility] Comment on above: Performed By: #### C BC #### [facility] [address] [place] [address] Dr. Jeimy Tenorio LIPID PROFILEon 06-12-2022 CHOL-HDL RATIO NORM SEE BELOW Normal [facility] Comment on above: Result Comment: 3.3 - 4.4 LOW RISK 4.4 - 7.1 AVERAGE RISK 7.1 - 11.0 MODERATE RISK >11.0 HIGH RISK Performed By: #### B MP, CMREP, LIPID #### [facility] [address] [place] [address] Dr. Jeimy Tenorio Cholesterol [Mass/Vol] 142 mg/dL Normal <=200 [facility] Comment on above: Performed By: #### B MP, CMREP, LIPID #### [facility] [address] [place] [address] Dr. Jeimy Tenorio Cholesterol in HDL [Mass/Vol] 49 mg/dL Normal 40-60 [facility] Comment on above: Performed By: #### B MP, CMREP, LIPID #### [facility] [address] [place] [address] Dr. Jeimy Tenorio Cholesterol in LDL [Mass/Vol] 64.6 mg/dL Normal [facility] Comment on above: Performed By: #### B MP, CMREP, LIPID #### [facility] [address] [place] [address] Dr. Jeimy Tenorio Cholesterol.total/Ch olesterol in HDL [Mass ratio] 2.9 {ratio} Normal [facility] Comment on above: Performed By: #### B MP, CMREP, LIPID #### [facility] [address] [address] [address] Jeimy Tenorio HDL NORMAL > or = 60 mg/dl - LO W CARDIOVASCULAR RISK <40 mg/dl - HIGH CARDIOVASCULAR RISK Normal [facility] Comment on above: Performed By: #### B MP, CMREP, LIPID #### [facility] [address] [address] [address] Jeimy Tenorio LDL CALC NORMAL SEE BELOW Normal [facility] Comment on above: Result Comment: <100 mg/dl OPTIMAL 100 - 129 mg/dl NEAR OR ABOVE OPTIMAL 130 - 159 mg/dl BORDERLINE HIGH 160 - 189 mg/dl HIGH >190 mg/dl VERY HIGH Performed By: #### B MP, CMREP, LIPID #### [facility] [address] [address] [address] Jeimy Tenorio Triglyceride [Mass/Vol] 142 mg/dL Normal <=150 [facility] Comment on above: Performed By: #### B MP, CMREP, LIPID #### [facility] [address] [address] [address] Jeimy Tenorio VLDL CALC 28.4 mg/dL Normal [facility] Comment on above: Performed By: #### B MP, CMREP, LIPID #### [facility] [address] [place] [address] Dr. Jeimy Tenorio PROF CHEM 8 (BAS METB)on Anion gap [Moles/Vol] 10.1 mmol/L Normal [facility] Comment on above: Performed By: #### B MP, CMREP, LIPID #### [facility] [address] [address] [address] Jeimy Tenorio Calcium [Mass/Vol] 8.0 mg/dL Critically low 8.5-10.1 [facility] Comment on above: Performed By: #### B MP, CMREP, LIPID #### [facility] [address] [address] [address] Jeimy Tenorio Chloride [Moles/Vol] 104 mmol/L Normal 98-107 [facility] Comment on above: Performed By: #### B MP, CMREP, LIPID #### [facility] [address] [address] [address] Jeimy Tenorio CO2 [Moles/Vol] 27.0 mmol/L Normal 21.0-32.0 [facility] Comment on above: Performed By: #### B MP, CMREP, LIPID #### [facility] [address] [address] [address] Jeimy Tenorio Creatinine [Mass/Vol] 0.79 mg/dL Normal 0.70-1.30 [facility] Comment on above: Performed By: #### B MP, CMREP, LIPID #### [facility] [address] [address] [address] Jeimy Tenorio EGFR-AF UKRAINIAN >60 Normal >=60 [facility] Comment on above: Performed By: #### B MP, CMREP, LIPID #### [facility] [address] [address] [address] Jeimy Tenorio EGFR-NON AF UKRAINIAN >60 Normal >=60 [facility] Comment on above: Performed By: #### B MP, CMREP, LIPID #### [facility] [address] [address] [address] Jeimy Tenorio Glucose [Mass/Vol] 101 mg/dL Normal 74-106 [facility] Comment on above: Performed By: #### B MP, CMREP, LIPID #### [facility] [address] [address] [address] Jeimy Tenorio Potassium [Moles/Vol] 4.1 mmol/L Normal 3.5-5.1 [facility] Comment on above: Performed By: #### B MP, CMREP, LIPID #### [facility] [address] [address] [address] Jeimy Tenorio Sodium [Moles/Vol] 137 mmol/L Normal 136-145 [facility] Comment on above: Performed By: #### B MP, CMREP, LIPID #### [facility] [address] [address] [address] Jeimy Tenorio Urea nitrogen [Mass/Vol] 15.0 mg/dL Normal 7.0-18.0 [facility] Comment on above: Performed By: #### B MP, CMREP, LIPID #### [facility] [address] [place] [address] Dr. Jeimy Tenorio Urea nitrogen/Creatinine [Mass ratio] 19.0 mg/mg Normal [facility] Comment on above: Performed By: #### B MP, CMREP, LIPID #### [facility] [address] [address] [address] Jeimy Tenorio CARDIAC SAWYER ADMITon 022 CK [Catalytic activity/Vol] 50 U/L Normal 39-308 [facility] Comment on above: Performed By: #### C BC #### [facility] [address] [place] [address] Dr. Jeimy Tenorio CK.MB [Mass/Vol] 0.80 ng/mL Normal <=3.60 [facility] Comment on above: Performed By: #### C BC #### [facility] [address] [place] [address] Dr. Jeimy Tenorio HSTROP 5.2 pg/mL Normal 4.0-76.1 [facility] Comment on above: Result Comment: CUT- OFF POINTS HAVE BEEN ESTABLISHED BASED ON THE FOURTH UNIVERSAL DEFINITIONS OF MYOCARDIAL INFARCTION. THE UPPER REFERENCE LIMIT (URL) OF TROPONIN, DEFINED THE 99TH PERCENTILE OF cTnI DISTRIBUTION IN A REFERENCE POPULATION, HAS BEEN CONFIRMED THE DECISION THRESHOLD FOR [place] DIAGNOSIS. Performed By: #### C BC #### [facility] [address] [place] [address] Dr. Jeimy Tenorio MAGALIE 41 ng/mL Normal 16-96 [facility] Comment on above: Performed By: #### C BC #### [facility] [address] [place] [address] Dr. Jeimy Tenorio CBC AUTO DIFFon 06-11-2022 BASO # 0.0 103/ul Normal 0.0-0.1 [facility] Comment on above: Performed By: #### C BC #### [facility] [address] [place] [address] Dr. Jeimy Tenorio Basophils/100 WBC (Bld) 0.6 % Normal 0.2-2.0 [facility] Comment on above: Performed By: #### C BC #### [facility] [address] [place] [address] Dr. Jeimy Tenorio EO # 0.4 103/ul Normal 0.0-0.7 [facility] Comment on above: Performed By: #### C BC #### [facility] [address] [place] [address] Dr. Jeimy Tenorio Eosinophils/100 WBC (Bld) 4.9 % Normal 0.9-7.0 [facility] Comment on above: Performed By: #### C BC #### [facility] [address] [place] [address] Dr. Jeimy Tenorio Erythrocyte distribution width (RBC) [Ratio] 13.1 % Normal 11.0-15.0 [facility] Comment on above: Performed By: #### C BC #### [facility] [address] [place] [address] Dr. Jeimy Tenorio Hematocrit (Bld) [Volume fraction] 38.1 % Critically low 42.0-54.0 [facility] Comment on above: Performed By: #### C BC #### [facility] [address] [place] [address] Dr. Jeimy Tenorio Hemoglobin (Bld) [Mass/Vol] 13.0 g/dL Critically low 14.0-18.0 [facility] Comment on above: Performed By: #### C BC #### [facility] [address] [place] [address] Dr. Jeimy Tenorio IG # 0.02 10e3/ul Normal 0.00-0.03 [facility] Comment on above: Performed By: #### C BC #### [facility] [address] [place] [address] Dr. Jeimy Tenorio IG % 0.3 % Normal 0.0-0.5 [facility] Comment on above: Performed By: #### C BC #### [facility] [address] [place] [address] Dr. Jeimy Tenorio LYMPH # 1.7 103/ul Normal 1.2-3.8 [facility] Comment on above: Performed By: #### C BC #### [facility] [address] [place] [address] Dr. Jeimy Tenorio Lymphocytes/100 WBC (Bld) 22.9 % Normal 20.5-60.0 [facility] Comment on above: Performed By: #### C BC #### [facility] [address] [place] [address] Dr. Jeimy Tenorio MANUAL DIFF REQ NO Normal [facility] Comment on above: Performed By: #### C BC #### [facility] [address] [place] [address] Dr. Jeimy Tenorio MCH (RBC) [Entitic mass] 33.5 pg Normal 25.9-34.0 [facility] Comment on above: Performed By: #### C BC #### [facility] Laboratory [address] [place] [address] Dr. Jeimy Tenorio MCHC (RBC) [Mass/Vol] 34.1 g/dL Normal 29.9-35.2 [facility] Comment on above: Performed By: #### C BC #### [facility] [address] [place] [address] Dr. Jeimy Tenorio MCV (RBC) [Entitic vol] 98.2 fL Critically high 80.0-94.0 [facility] Comment on above: Performed By: #### C BC #### [facility] [address] [place] [address] Dr. Jeimy Tenorio MONO # 0.8 103/ul Normal 0.3-0.8 [facility] Comment on above: Performed By: #### C BC #### [facility] [address] [place] [address] Dr. Jeimy Tenorio Monocytes/100 WBC (Bld) 11.5 % Normal 1.7-12.0 [facility] Comment on above: Performed By: #### C BC #### [facility] [address] [place] [address] Dr. Jeimy Tenorio NEUT # 4.3 103/ul Normal 1.4-6.5 [facility] Comment on above: Performed By: #### C BC #### [facility] [address] [address] [address] Jeimy Tenorio Neutrophils/100 WBC (Bld) 59.8 % Normal 43.0-75.0 [facility] Comment on above: Performed By: #### C BC #### [facility] [address] [address] [address] Jeimy Tenorio Platelet mean volume (Bld) [Entitic vol] 9.8 fL Normal 9.5-13.5 [facility] Comment on above: Performed By: #### C BC #### [facility] [address] [address] [address] Jeimy Tenorio PLT 181 103/ul Normal 150-450 [facility] Comment on above: Performed By: #### C BC #### [facility] [address] [place] [address] Dr. Jeimy Tenorio RBC 3.88 106/ul Critically low 4.70-6.10 [facility] Comment on above: Performed By: #### C BC #### [facility] [address] [place] [address] Dr. Jeimy Tenorio WBC 7.2 103/ul Normal 4.0-11.0 [facility] Comment on above: Performed By: #### C BC #### [facility] [address] [place] [address] Dr. Jeimy Tenorio D-DIMERon 06-11-2022 D-DIMER 0.63 mg/L FEU Critically high <=0.59 [facility] Comment on above: Performed By: #### D DIM #### [facility] [address] [place] [address] Dr. Jeimy Tenorio D-DIMER COMMENTS SEE BELOW Normal [facility] Comment on above: Result Comment: Incr eases [...] hospitalization. Performed By: #### D DIM #### [facility] [address] [place] [address] Dr. Jeimy Tenorio PROF 14(COMP METB)on 022 Albumin [Mass/Vol] 3.3 g/dL Critically low 3.4-5.0 [facility] Comment on above: Performed By: #### C BC #### [facility] [address] [place] [address] Dr. Jeimy Tenorio Albumin/Globulin [Mass ratio] 0.8 {ratio} Normal [facility] Comment on above: Performed By: #### C BC #### [facility] [address] [place] [address] Dr. Jeimy Tenorio ALP [Catalytic activity/Vol] 160 U/L Critically high 46-116 [facility] Comment on above: Performed By: #### C BC #### [facility] [address] [place] [address] Dr. Jeimy Tenorio ALT [Catalytic activity/Vol] 26 U/L Normal 16-63 [facility] Comment on above: Performed By: #### C BC #### [facility] [address] [place] [address] Dr. Jeimy Tenorio Anion gap [Moles/Vol] 10.4 mmol/L Normal [facility] Comment on above: Performed By: #### C BC #### [facility] [address] [place] [address] Dr. Jeimy Tenorio AST [Catalytic activity/Vol] 16 U/L Normal 15-37 [facility] Comment on above: Performed By: #### C BC #### [facility] [address] [place] [address] Dr. Jeimy Tenorio Bilirubin [Mass/Vol] 0.2 mg/dL Normal 0.2-1.0 [facility] Comment on above: Performed By: #### C BC #### [facility] [address] [place] [address] Dr. Jeimy Tenorio Calcium [Mass/Vol] 8.2 mg/dL Critically low 8.5-10.1 [facility] Comment on above: Performed By: #### C BC #### [facility] [address] [place] [address] Dr. Jeimy Tenorio Chloride [Moles/Vol] 105 mmol/L Normal 98-107 [facility] Comment on above: Performed By: #### C BC #### [facility] [address] [place] [address] Dr. Jeimy Tenorio CO2 [Moles/Vol] 26.5 mmol/L Normal 21.0-32.0 [facility] [place] [facility] Comment on above: Performed By: #### C BC #### [facility] [address] [place] [address] Dr. Jeimy Tenorio Creatinine [Mass/Vol] 0.96 mg/dL Normal 0.70-1.30 [facility] Comment on above: Performed By: #### C BC #### [facility] [address] [place] [address] Dr. Jeimy Tenorio EGFR-AF UKRAINIAN >60 Normal >=60 [facility] [place] [facility] Comment on above: Performed By: #### C BC #### [facility] [address] [place] [address] Dr. Jeimy Tenorio EGFR-NON AF UKRAINIAN >60 Normal >=60 [facility] Comment on above: Performed By: #### C BC #### [facility] [address] [place] [address] Dr. Jeimy Tenorio Globulin (S) [Mass/Vol] 4.0 g/dL Normal [facility] Comment on above: Performed By: #### C BC #### [facility] [address] [place] [address] Dr. Jeimy Tenorio Glucose [Mass/Vol] 140 mg/dL Critically high 74-106 T [facility] Comment on above: Performed By: #### C BC #### [facility] [address] [place] [address] Dr. Jeimy Tenorio Potassium [Moles/Vol] 3.9 mmol/L Normal 3.5-5.1 [facility] Comment on above: Performed By: #### C BC #### [facility] [address] [place], [place] [address] Dr. Jeimy Tenorio Protein [Mass/Vol] 7.3 g/dL Normal 6.4-8.2 [facility] Comment on above: Performed By: #### C BC #### [facility] [address] [place], [place] [address] Dr. eJimy Tenorio Sodium [Moles/Vol] 138 mmol/L Normal 136-145 [facility] Comment on above: Performed By: #### C BC #### [facility] [address] [place], [place] [address] Dr. Jeimy Tenorio Urea nitrogen [Mass/Vol] 15.0 mg/dL Normal 7.0-18.0 [facility] Comment on above: Performed By: #### C BC #### [facility] [address] [address] [address] Jeimy Tenorio Urea nitrogen/Creatinine [Mass ratio] 15.6 mg/mg Normal [facility] Comment on above: Performed By: #### C BC #### [facility] [address] [address] [address] Jeimy Tenorio [facility] METABOL[facility] 10-30-2021 Albumin [Mass/Vol] 4.3 g/dL Normal 3.6-5.1 [facility] Comment on above: Performed By: #### 7 , 645, 80943 #### [facility] [address] Health Physicist: Yash Campuzano MD Albumin/Globulin [Mass ratio] 1.3 {ratio} Normal 1.0-2.5 [facility] Comment on above: Performed By: #### 7 , 598, 65159 #### [facility] [address] Health Physicist: Yash Campuzano MD ALP [Catalytic activity/Vol] 152 U/L High 35-144 [facility] Comment on above: Performed By: #### 7 , 985, 74664 #### [facility] [address] Health Physicist: Yash Campuzano MD ALT [Catalytic activity/Vol] 30 U/L Normal 9-46 [facility] Comment on above: Performed By: #### 7 13, 7599, 03272 #### [facility] of [address] [address] Health Physicist: Yash Campuzano MD AST [Catalytic activity/Vol] 26 U/L Normal 10-35 [facility] Comment on above: Performed By: #### 7 13, 7599, 90804 #### [facility] of [address] [address] Health Physicist: Yash Campuzano MD Bilirubin [Mass/Vol] 0.4 mg/dL Normal 0.2-1.2 [facility] Comment on above: Performed By: #### 7 13, 7599, 56805 #### [facility] of [address] [address] Health Physicist: Yash Campuzano MD BUN/CREATININE RATIO NOT APPLICABLE Normal 6-22 [facility] Comment on above: Performed By: #### 7 13, 7599, 01430 #### [facility] of [address] [address] Health Physicist: Yash Campuzano MD Calcium [Mass/Vol] 8.8 mg/dL Normal 8.6-10.3 [facility] Comment on above: Performed By: #### 7 13, 7599, 52473 #### [facility] of [address] [address] Health Physicist: Yash Campuzano MD Chloride [Moles/Vol] 104 mmol/L Normal 98-110 [facility] Comment on above: Performed By: #### 7 13, 7599, 97520 #### [facility] of [address] [address] Health Physicist: Yash Campuzano MD CO2 [Moles/Vol] 25 mmol/L Normal 20-32 [facility] Comment on above: Performed By: #### 7 , 7599, 25949 #### [facility] [address] [place] [address] Health Physicist: Yash Campuzano MD Creatinine [Mass/Vol] 0.76 mg/dL Normal 0.70-1.25 [facility] Comment on above: Result Comment: For patients >49 years of age, the reference limit for Creatinine is approximately 13% higher for people identified as -[place]. Performed By: #### 7 , 7599, #### [facility] [address], [address] [place] [address] Health Physicist: Yash Campuzano MD eGFR NON-AFR. UKRAINIAN 95 mL/min/1.73m2 Normal > OR = 60 [facility] Comment on above: Performed By: #### 7 , 7599, #### [facility] [address] [place] [address] Health Physicist: Yash Campuzano MD GFR/1.73 sq M.predicted among blacks MDRD (S/P/Bld) [Vol rate/Area] 110 mL/min/{1.73_m2} Normal > OR = 60 [facility] Comment on above: Performed By: #### 7 , 7599, #### [facility] [address] [place] [address] Health Physicist: Yash Campuzano MD Globulin (S) [Mass/Vol] 3.2 g/dL Normal 1.9-3.7 [facility] Comment on above: Performed By: #### 7 , 7599, 70147 #### [facility] [address] [place] [address] Health Physicist: Yash Campuzano MD Glucose [Mass/Vol] 103 mg/dL High 65-99 [facility] Comment on above: Result Comment: Fasting reference interval For someone without known diabetes, a glucose value between 100 and 125 mg/dL is consistent with prediabetes and should be confirmed with a follow-up test. Performed By: #### 7 , 7599, 67685 #### [facility] [address] [place] [address] Health Physicist: Yash Campuzano MD Potassium [Moles/Vol] 4.7 mmol/L Normal 3.5-5.3 [facility] Comment on above: Performed By: #### 7 13, 7600, 75249 #### [facility] of [address], [address] [place] [address] Health Physicist: Yash Campuzano MD Protein [Mass/Vol] 7.5 g/dL Normal 6.1-8.1 [facility] Comment on above: Performed By: #### 7 13, 7600, 14136 #### [facility] of [address], [address] [place] [address] Health Physicist: Yash Campuzano MD Sodium [Moles/Vol] 137 mmol/L Normal 135-146 [facility] Comment on above: Performed By: #### 7 13, 0, 43535 #### [facility] of [address], [address] [place] [address] Health Physicist: Yash Campuzano MD Urea nitrogen [Mass/Vol] 15 mg/dL Normal 7-25 [facility] Comment on above: Performed By: #### 7 13, 7600, 75988 #### [facility] of [address] [address] Health Physicist: Yash Campuzano MD LIPID PANEL, [facility] 12-1 Cholesterol [Mass/Vol] 180 mg/dL Normal <200 [facility] Comment on above: Order Comment: FASTI NG:YES FASTING: YES Performed By: #### 7 13, 7600, 91042 #### [facility] of [address], [address] [place] [address] Health Physicist: Yash Campuzano MD Cholesterol in HDL [Mass/Vol] 50 mg/dL Normal > OR = 40 [facility] Comment on above: Order Comment: FASTI NG:YES FASTING: YES Performed By: #### 7 13, 7600, 84116 #### [facility] of [address], [address] [place], [place] [address] Health Physicist: Yash Campuzano MD Cholesterol in LDL [Mass/Vol] [...] LDL-C. Gennaro ALMANZAR et al. KO. 2013;310(19): 1377-4270 ([email or web address]/faq/GMO084) Performed By: #### 7 , 7020, 86452 #### [facility] [address], [address] [place] [address] Health Physicist: Yash Campuzano MD Cholesterol.total/Ch olesterol in HDL [Mass ratio] 3.6 {ratio} Normal <5.0 [facility] Comment on above: Order Comment: FASTI NG:YES FASTING: YES Performed By: #### 7 , 5330, 17764 #### [facility] [address], [address] [place] [address] Health Physicist: Yash Campuzano MD NON HDL CHOLESTEROL 130 mg/dL (calc) High <130 [facility] Comment on above: Order Comment: FASTI NG:YES FASTING: YES Result Comment: For patients with diabetes plus 1 major ASCVD risk factor, treating to a non-HDL-C goal of <100 mg/dL (LDL-C of <70 mg/dL) is considered a therapeutic option. Performed By: #### 7 , 6260, 41960 #### [facility] [address], [address] [place] [address] Health Physicist: Yash Campuzano MD Triglyceride [Mass/Vol] 280 mg/dL High <150 [facility] Comment on above: Order Comment: FASTI NG:YES FASTING: YES Result Comment: If a non-fasting specimen was collected, consider repeat triglyceride testing on a fasting specimen if clinically indicated. Camarillo et al. J. of Clin. Lipidol. 2015;9:129-169. Performed By: #### 7 13, 7600, 46228 #### [facility] [address] [place] [address] Health Physicist: Yash Campuzano MD PHENYTOINon 10-30-2021 Phenytoin [Mass/Vol] 18.9 ug/mL Normal 10.0-20.0 [facility] Comment on above: Performed By: #### 7 13, 7600, 78762 #### [facility] [address] [place] [address] Health Physicist: Yash Campuzano MD CBC (INCLUDES DIFF/PLT)on Basophils (Bld) [#/Vol] 0.071 10*3/uL Normal 0-200 [facility] Comment on above: Performed By: #### 7 13, 7599, 6399 #### [facility] [address] [place] [address] Health Physicist: Yash Campuzano MD Basophils/100 WBC (Bld) 1.2 % Normal [facility] Comment on above: Performed By: #### 7 13, 7600, 6399 #### [facility] [address] [place] [address] Health Physicist: Yash Campuzano MD Eosinophils (Bld) [#/Vol] 0.277 10*3/uL Normal 15-500 [facility] Comment on above: Performed By: #### 7 13, 7600, 6399 #### [facility] [address] [place] [address] Health Physicist: Yash Campuzano MD Eosinophils/100 WBC (Bld) 4.7 % Normal [facility] Comment on above: Performed By: #### 7 13, 7600, 6399 #### [facility] [address] [place] [address] Health Physicist: Yash Campuzano MD Erythrocyte distribution width (RBC) [Ratio] 12.8 % Normal 11.0-15.0 [facility] Comment on above: Performed By: #### 7 , 7599, 6399 #### [facility] of [address] [address] Health Physicist: Yash Campuzano MD Hematocrit (Bld) [Volume fraction] 42.1 % Normal 38.5-50.0 [facility] Comment on above: Performed By: #### 7 , 7599, 6399 #### [facility] of [address] [address] Health Physicist: Yash Campuzano MD Hemoglobin (Bld) [Mass/Vol] 14.9 g/dL Normal 13.2-17.1 [facility] Comment on above: Performed By: #### 7 , 7599, 6399 #### [facility] of [address] [address] Health Physicist: Yash Campuzano MD Lymphocytes (Bld) [#/Vol] 1.068 10*3/uL Normal 850-3900 [facility] Comment on above: Performed By: #### 7 , 7599, 6399 #### [facility] of [address] [address] Health Physicist: Yash Campuzano MD Lymphocytes/100 WBC (Bld) 18.1 % Normal [facility] Comment on above: Performed By: #### 7 , 7599, 6399 #### [facility] of [address] [address] Health Physicist: Yash Campuzano MD MCH (RBC) [Entitic mass] 32.9 pg Normal 27.0-33.0 [facility] Comment on above: Performed By: #### 7 , 7599, 6399 #### [facility] of [address] [place] [address] Health Physicist: Yash Campuzano MD MCHC (RBC) [Mass/Vol] 35.4 g/dL Normal 32.0-36.0 [facility] Comment on above: Performed By: #### 7 , 7599, 6399 #### [facility] of [address], [address] [place] [address] Health Physicist: Yash Campuzano MD MCV (RBC) [Entitic vol] 92.9 fL Normal 80.0-100.0 [facility] Comment on above: Performed By: #### 7 13, 7599, 6399 #### [facility] of [address], [address] [place] [address] Health Physicist: Yash Campuzano MD Monocytes (Bld) [#/Vol] 0.531 10*3/uL Normal 200-950 [facility] Comment on above: Performed By: #### 7 13, 7599, 6399 #### [facility] of [address], [address] [place] [address] Health Physicist: Yash Campuzano MD Monocytes/100 WBC (Bld) 9.0 % Normal [facility] Comment on above: Performed By: #### 7 13, 7599, 6399 #### [facility] of [address], [address] [place] [address] Health Physicist: Yash Campuzano MD Neutrophils (Bld) [#/Vol] 3.953 10*3/uL Normal 1904-5530 [facility] Comment on above: Performed By: #### 7 13, 7599, 6399 #### [facility] of [address], [address] [place] [address] Health Physicist: Yash Campuzano MD Neutrophils/100 WBC (Bld) 67 % Normal [facility] Comment on above: Performed By: #### 7 13, 7599, 6399 #### [facility] of [address], [address] [place] [address] Health Physicist: Yash Campuzano MD Platelet mean volume (Bld) [Entitic vol] 11.0 fL Normal 7.5-12.5 [facility] Comment on above: Performed By: #### 7 13, 7599, 6399 #### [facility] of [address], [address] [place] [address] Health Physicist: Yash Campuzano MD Platelets (Bld) [#/Vol] 200 10*3/uL Normal 140-400 [facility] Comment on above: Performed By: #### 7 13, 7600, 6399 #### [facility] of [address], [address] [place] [address] Health Physicist: Yash Campuzano MD RBC (Bld) [#/Vol] 4.53 10*6/uL Normal 4.20-5.80 [facility] Comment on above: Performed By: #### 7 13, 760, 6399 #### [facility] of [place] [address] Health Physicist: Yash Campuzano MD WBC (Bld) [#/Vol] 5.9 10*3/uL Normal 3.8-10.8 [facility] Comment on above: Performed By: #### 7 13, 7599, 6399 #### [facility] of [address], [address] [place] [address] Health Physicist: Yash Campuzano MD LIPID PANEL, [address] Cholesterol [Mass/Vol] 218 mg/dL High <200 [facility] Comment on above: Order Comment: FASTI NG:YES FASTING: YES Performed By: #### 7 13, 7600, 6399 #### [facility] [place] [address] Health Physicist: Yash Campuzano MD Cholesterol in HDL [Mass/Vol] 55 mg/dL Normal > OR = 40 [facility] Comment on above: Order Comment: FASTI NG:YES FASTING: YES Performed By: #### 7 13, 7600, 6399 #### [facility] [place] [address] Health Physicist: Yash Campuzano MD Cholesterol in LDL [Mass/Vol] [...] LDL-C. Gennaro ALMANZAR et al. KO. 2013;310(19): 5499-3022 (http://[email or web address]/faq/ZEX727) Performed By: #### 7 , 3030, 5099 #### [facility] [address], [address] [place] [address] Health Physicist: Yash Campuzano MD Cholesterol.total/Ch olesterol in HDL [Mass ratio] 4.0 {ratio} Normal <5.0 [facility] Comment on above: Order Comment: FASTI NG:YES FASTING: YES Performed By: #### 7 , 7720, 3045 #### [facility] [address], [address] [place] [address] Health Physicist: Yash Campuzano MD NON HDL CHOLESTEROL 163 mg/dL (calc) High <130 [facility] Comment on above: Order Comment: FASTI NG:YES FASTING: YES Result Comment: For patients with diabetes plus 1 major ASCVD risk factor, treating to a non-HDL-C goal of <100 mg/dL (LDL-C of <70 mg/dL) is considered a therapeutic option. Performed By: #### 7 , 425, 7498 #### [facility] [address], [address] [place] [address] Health Physicist: Yash Campuzano MD Triglyceride [Mass/Vol] 200 mg/dL High <150 [facility] Comment on above: Order Comment: FASTI NG:YES FASTING: YES Result Comment: If a non-fasting specimen was collected, consider repeat triglyceride testing on a fasting specimen if clinically indicated. Marquise barajas al. J. of Clin. Lipidol. 2015;9:129-169. Performed By: #### 7 , 5510, 7385 #### [facility] [address], [address] [place] [address] Health Physicist: Yash Campuzano MD PHENYTOINon 05-29-2021 Phenytoin [Mass/Vol] 25.0 ug/mL High 10.0-20.0 [facility] Comment on above: Performed By: #### 7 13, 6975, 1093 #### [facility] [address], [address] [place] [address] Health Physicist: Yash Campuzano MD APTTon 11-20-2020 aPTT Coag (Bld) [Time] 33.4 s Normal 25.0-35.0 [facility] Comment on above: Result Comment: ALL [...] THIS PURPOSE. Performed By: #### 5 6101, 26679 ####[facility] BNP EDon 11-20-2020 Natriuretic peptide B (Bld) [Mass/Vol] 111 pg/mL High 0-100 [facility] [place] Comment on above: Result Comment: Give n the appropriate clinical setting a BNP result of >100 pg/mL indicates congestive heart failure. Performed By: #### 3 0935 #### [facility] [address] CBC W/DIFFon 11-20-2020 ABS IMM GRANS 0.0 10*3/uL Normal 0.0-0.2 [facility] Comment on above: Performed By: #### 5 0103 ####[facility] ABS NEUTROPHILS 3.9 10*3/uL Normal 1.6-7.6 [facility] Comment on above: Performed By: #### 5 0103 ####[facility] [place] [address], [facility] Basophils (Bld) [#/Vol] 0.1 10*3/uL Normal 0.0-0.2 [facility] [place] Comment on above: Performed By: #### 5 0103 ####[facility] [place] [address], [facility] Basophils/100 WBC (Bld) 1.0 % Normal 0.0-1.0 [facility] [place] Comment on above: Performed By: #### 5 0103 ####[facility] [place] [address], [facility] Eosinophils (Bld) [#/Vol] 0.3 10*3/uL Normal 0.0-0.5 [facility] [place] Comment on above: Performed By: #### 102 ####[address] [place] [address], [facility] Eosinophils/100 WBC (Bld) 5.1 % Normal 0.0-6.0 The [facility] [place] Comment on above: Performed By: #### 102 ####[place] [address] [facility] Erythrocyte distribution width (RBC) [Ratio] 13.1 % Normal 11.5-15.0 [facility] [place] Comment on above: Performed By: #### 5 3 ####[facility] [facility] Hematocrit (Bld) [Volume fraction] 45.4 % Normal 39.0-50.0 [facility] [place] Comment on above: Performed By: #### 5 3 ####[facility] [place] [address], [facility] Hemoglobin (Bld) [Mass/Vol] 14.8 g/dL Normal 13.0-17.0 The [facility] [place] Comment on above: Performed By: #### 5 3 ####[facility] IMMATURE GRANS 0.3 % Normal 0.0-1.0 The [facility] Comment on above: Performed By: #### 5 0103 ####[address] Lymphocytes (Bld) [#/Vol] 1.0 10*3/uL Low 1.2-4.0 The [facility] [place] Comment on above: Performed By: #### 5 0103 ####[address] Lymphocytes/100 WBC (Bld) 17.5 % Low 20.0-45.0 The [facility] [place] Comment on above: Performed By: #### 5 102 ####[address] MCH (RBC) [Entitic mass] 32.5 pg Normal 27.0-33.0 [facility] [place] Comment on above: Performed By: #### 5 102 ####[address] MCHC (RBC) [Mass/Vol] 32.6 g/dL Normal 32.0-35.0 The [facility] [place] Comment on above: Performed By: #### 5 3 ####[address] MCV (RBC) [Entitic vol] 99.6 fL High 82.0-98.0 [facility] [place] Comment on above: Performed By: #### 5 3 ####[address] Monocytes (Bld) [#/Vol] 0.6 10*3/uL Normal 0.1-1.0 The [facility] [place] Comment on above: Performed By: #### 5 3 ####[facility] [facility] [place] [address], [facility] MONOS 9.4 % Normal 5.0-12.0 The [facility] [place] Comment on above: Performed By: #### 5 0103 ####[facility] [facility] [facility] [place] [place] [address], [facility] Neutrophils/100 WBC (Bld) 66.7 % Normal 40.0-72.0 The [facility] Comment on above: Performed By: #### 5 0103 ####[facility] [facility] [place] [place] [address], [facility] Nucleated RBC/100 WBC (Bld) [Ratio] 0 % Normal 0-0 The [facility] Comment on above: Performed By: #### 5 0103 ####[address] [place] [address], [facility] PLAT CNT 175 10*3/uL Normal 150-400 The [facility] Comment on above: Performed By: #### 5 0103 ####[address] [place] [address], [facility] RBC (Bld) [#/Vol] 4.56 10*6/uL Normal 4.20-5.70 The [facility] Comment on above: Performed By: #### 5 0103 ####[address] [place] [address], [facility] WBC (Bld) [#/Vol] 5.88 10*3/uL Normal 4.00-10.60 The [facility] Comment on above: Performed By: #### 5 0103 ####[address] COMP METABOLIC PANELon 11-20 Albumin [Mass/Vol] 4.0 g/dL Normal 3.5-5.7 The [facility] Comment on above: Performed By: #### 0 0121, 98505, 89635, 37695 #### [facility] [address] [place] [address], [place] ALKALINE PHOSPH 130 IU/L High 34-104 The [facility] Comment on above: Performed By: #### 0 0121, 88795, 14266, 35228 #### [facility] [address] [place] [address], [place] ALT [Catalytic activity/Vol] 18 U/L Normal 7-52 The [facility] Comment on above: Performed By: #### 0 0121, 66626, 17435, 60451 #### [facility] [address] [place] [address], [place] AST [Catalytic activity/Vol] 19 U/L Normal 13-39 The [facility] Comment on above: Performed By: #### 0 0121, 33344, 88695, 01782 #### [facility] [address] [place] [address], [place] Bilirubin [Mass/Vol] 0.4 mg/dL Normal 0.3-1.0 The [facility] Comment on above: Performed By: #### 0 0121, 09997, 56070, 20431 #### [facility] [address] [place] [address], [place] Calcium [Mass/Vol] 9.0 mg/dL Normal 8.6-10.3 [facility] Comment on above: Performed By: #### 0 0121, 64377, 93338, 57086 #### [facility] [address] [place] [address], [place] Chloride [Moles/Vol] 103 mmol/L Normal 98-107 The [facility] Comment on above: Performed By: #### 0 0121, 54383, 22194, 32032 #### [facility] [address] [place] [address], [place] CO2 [Moles/Vol] 28 mmol/L Normal 21-31 The [facility] Comment on above: Performed By: #### 0 0121, 71872, 34851, 91321 #### [facility] [address] [place] [address], [place] Creatinine [Mass/Vol] 0.77 mg/dL Normal 0.70-1.30 The [facility] Comment on above: Performed By: #### 0 0121, 84174, 88701, 60480 #### [facility] [address] [place] [address], [place] GFR/1.73 sq M.predicted among blacks MDRD (S/P/Bld) [Vol rate/Area] mL/min/{1.73_m2} Normal >60 The [facility] Comment on above: Performed By: #### 0 0121, 19338, 67833, 33134 #### [facility] [address] [place] [address], [place] GFR/1.73 sq M.predicted among non-blacks MDRD (S/P/Bld) [Vol rate/Area] mL/min/{1.73_m2} Normal >60 The [facility] Comment on above: Performed By: #### 0 0121, 29698, 55155, 44545 #### [facility] [address] [place] [address], [place] Glucose [Mass/Vol] 88 mg/dL Normal 70-100 [facility] Comment on above: Performed By: #### 0 0121, 81429, 06336, 01745 #### [facility] [address] [place] [address], [place] Potassium [Moles/Vol] 4.9 mmol/L Normal 3.5-5.1 The [facility] Comment on above: Performed By: #### 0 0121, 00935, 76888, 37063 #### [facility] [address] [place] [address], [place] Protein [Mass/Vol] 7.3 g/dL Normal 6.0-8.3 The [facility] Comment on above: Performed By: #### 0 0121, 88096, 88273, 62761 #### [facility] [address] [facility] [place] [address], [facility] Sodium [Moles/Vol] 138 mmol/L Normal 136-145 The [facility] Comment on above: Performed By: #### 0 0121, 69136, 55125, 25522 #### [facility] [address] [facility] [place] [address], [facility] Urea nitrogen [Mass/Vol] 15 mg/dL Normal 7-25 The [facility] Comment on above: Performed By: #### 0 0121, 40263, 20077, 82940 #### [address] [address], [facility] CTA HEADon 11-20-2020 CTA HEAD [facility] Department of Radiology [address] [place] [id number] Patient Name: NAZARIO CORTES : 1955 Sex: M Age: Race: White Pt. Location: [facility] Patient Status: E Ordered Date: 11/20/2020 [...] stenosis of the major vessels of the [place]. origin of bilateral posterior cerebral arteries. IMPRESSION: Normal CTA of the brain. All CT scans at this facility use dose modulation, iterative reconstruction, and/or weight based dosing when appropriate to reduce radiation dose to as low as reasonably achievable. Electronically signed: Dhaval Bain. Transcribed by: [email or web address], User Resident: Electronically Signed by: DHAVAL BAIN @ 11/20/2020 12:58 PM Normal The [facility] Comment on above: Order Comment: Bleed CTA NECKon 11-20-2020 CTA NECK [facility] Department of Radiology [address] [place] [id number] Patient Name: NAZARIO CORTES : 1955 Sex: M Age: Race: White Pt. Location: [facility] Patient Status: E Ordered Date: 11/20/2020 [...] viewed on a separate workstation. The [place] Symptomatic Carotid Endarterectomy Trial (NASCET) method for [...] achievable Electronically signed: Dhaval Bain. Transcribed by: [email or web address], User Resident: Electronically Signed by: DHAVAL BAIN @ 11/20/2020 12:57 PM Normal The [facility] DIRECT BILIon 11-20-2020 Bilirubin.direct [Mass/Vol] 0.1 mg/dL Normal 0.0-0.2 The [facility] Comment on above: Order Comment: Liver Battery conflicts with Comprehensive Metabolic Panel. Liver Battery canceled and Direct Bilirubin added. Performed By: #### 0 0121, 64374, 92305, 44217 #### [facility] [address] [facility] [place] [address], [facility] LIPASE BLOODon 11-20-2020 LIPASE 27 Units/L Normal 11-82 [facility] Comment on above: Performed By: #### 0 0121, 28487, 53865, 85172 #### [address] POC SARS COV2 ANTIGEN NEGATI VEon 11-20-2020 POC SARS COV2 ANTIGEN N Negative Normal NEGATIVE The [facility] Comment on above: Result Comment: Test performed [...] management. Performed By: #### 3 1919 #### [address] PORTABLE CHEST 1 VIEWon 10-23 PORTABLE CHEST 1 VIEW [facility] Department of Radiology [address] [place] [id number] Patient Name: NAZARIO CORTES : 1955 Sex: M Age: Race: White Pt. Location: [facility] Patient Status: E Ordered Date: 11/20/2020 [...] reports Electronically signed: Dhaval Bain. Transcribed by: [id number], User Resident: JESSENIA ALFORD Electronically Signed by: DHAVAL BAIN @ 11/20/2020 12:32 PM I personally read this/these film(s) with this resident Normal The [facility] Comment on above: Order Comment: evalu ate for Pneumonia PROTHROMBIN TIMEon 0 INR Coag (PPP) [Relative time] 0.95 {INR} Normal 0.91-1.16 [facility] Comment on above: Result Comment: ACCC P [...] CHEST 1995;[id number]. Performed By: #### 5 6101, 90621 ####[facility] [address] PT Coag (PPP) [Time] 12.7 s Normal 12.3-14.8 [facility] Comment on above: Result Comment: ALL RESULTS MUST BE INTERPRETED WITH RESPECT TO BLOOD DRAWING ARTIFACT OR DILUTION ERROR OF ANTICOAGULANT AT THE TIME OF SAMPLING. Performed By: #### 5 6101, 68788 ####[facility] [address] TROPONIN-Ion 11-20-2020 Troponin I.cardiac [Mass/Vol] 0.00 ng/mL Normal 0.00-0.04 [facility] Comment on above: Order Comment: No: D o not add to previous draw Result Comment: REFE RENCE RANGES: 0.00 - 0.14 ng/ml NEGATIVE 0.15 - 0.25 ng/ml INDETERMINATE > 0.25 ng/ml INDICATIVE OF AN M.I. Performed By: #### 3 5200 #### [facility] [address] Troponin I.cardiac [Mass/Vol] 0.00 ng/mL Normal 0.00-0.04 [facility] Comment on above: Result Comment: REFE RENCE RANGES: 0.00 - 0.14 ng/ml NEGATIVE 0.15 - 0.25 ng/ml INDETERMINATE > 0.25 ng/ml INDICATIVE OF AN M.I. Performed By: #### 0 0121, 94252, 03415, 64506 #### [facility] [address] Vital Signs Date Time Vital Sign Value Performing Clinician Facility 08-15-2023 10:00-0400 Body height 185.42 cm Luiz Riggs Other [facility] Other 07-05-2023 10:00-0400 Body mass index (BMI) [Ratio] 37.86 kg/m2 Luiz Riggs Other [facility] Other 07-05-2023 10:00-0400 Body weight 130.18 kg Luiz Keely Other [facility] Other 07-05-2023 10:00-0400 Diastolic blood pressure 76 mm[Hg] Luiz Keely Other [facility] Other 07-05-2023 10:00-0400 Systolic blood pressure 126 mm[Hg] Luiz Keely Other [facility] Other 04-06-2022 17:40-0400 Body height 185.42 cm Neelam Alexandra Other [facility] Other 04-06-2022 17:40-0400 Body mass index (BMI) [Ratio] 36.15 kg/m2 Neelam Alexandra Other [facility] Other 04-06-2022 17:40-0400 Body temperature 98 [degF] Neelam Alexandra Other [facility] Other 04-06-2022 17:40-0400 Body weight 124.29 kg Neelam Alexandra Other [facility] Other 04-06-2022 17:40-0400 Diastolic blood pressure 69 mm[Hg] Neelam Alexandra Other [facility] Other 04-06-2022 17:40-0400 Respiratory rate 18 /min Neelam Morris Other [facility] Other 04-06-2022 17:40-0400 SaO2% (BldA) [Mass fraction] 95 % Neelam Morris Other [facility] Other 04-06-2022 17:40-0400 Systolic blood pressure 123 mm[Hg] Neelam Morris Other [facility] Other 12-28-2021 17:00-0500 Body height 185.42 cm Alex Elspiper Other [facility] Other 12-28-2021 17:00-0500 Body mass index (BMI) [Ratio] 37.47 kg/m2 Alex Elspiper Other [facility] Other 12-28-2021 17:00-0500 Body weight 128.82 kg Alex Castanopiper Other [facility] Other Encounters Encounter Date Encounter Type Care Provider Facility Start: 02-21-2024 End: 02-21-2024 ambulatory JIGNESH INGRIDChata Not Available Start: 01-11-2024 End: 01-11-2024 ambulatory SHAIKH TIESHA Not Available Start: 01-05-2024 End: 01-06-2024 ambulatory [facility] Start: 01-05-2024 End: 01-05-2024 ambulatory [facility] Start: 12-30-2023 ambulatory Chris Archuleta ty:WYATT Fall Start: 12-21-2023 Telephone encounter Epifanio dennison MD Work Phone: [facility] Start: 12-20-2023 ambulatory [facility] Start: 12-19-2023 End: 12-20-2023 ambulatory ROGERIO NARA [facility] Start: 12-15-2023 End: 12-15-2023 ambulatory JIGNESH GONSALEZ Not Available Start: 12-07-2023 End: 12-07-2023 ambulatory JIGNESH GONSALEZ Not Available Start: 11-29-2023 End: 11-29-2023 ambulatory JIGNESH GONSALEZ Not Available Start: 10-06-2023 End: 10-06-2023 ambulatory JIGNESH GONSALEZ Not Available Start: 07-18-2023 End: 07-19-2023 ambulatory JIGNESH GONSALEZ Facility:[facility] Start: 07-18-2023 End: 07-18-2023 Patient encounter procedure Chris CAMARILLO [facility] Start: 07-05-2023 Office outpatient ne w 30 minutes Luiz Riggs [facility] Start: 07-05-2023 End: 07-05-2023 ambulatory MD Jignesh Gonsalez Work Phone: [facility] Work Phone: Start: 07-05-2023 End: 07-05-2023 Patient encounter procedure MD Jignesh Gonsalez Work Phone: [facility] Work Phone: Start: 01-07-2023 End: 01-08-2023 ambulatory [...] 04-06-2022 End: 04-06-2022 ambulatory Neelam Morris Other [facility] [employer] Other Start: 04-06-2022 Office outpatient visit 15 minutes Neelam Morris [facility] [place] Start: 12-28-2021 End: 12-28-2021 ambulatory Alex Bonilla Other [facility] [employer] Other Start: 12-28-2021 Office outpatient ne w 30 minutes Alex Bonilla [facility] Start: 11-20-2020 End: 11-20-2020 Emergency department patient visit KARINA JAY Facility:[facility] Procedures Date Procedure Procedure Detail Performing Clinician Start: 07-05-2023 X-ray of lumbar spin e, six views including bending views MD Jignesh Gonsalez Work Phone: Start: 09-29-[address] JOSE MARIE Comment on above: Performed By: #### P [facility] #### [facility] [address] [place] [address] Dr. Jeimy Tenorio Extraction of cataract Patri luis antonio CAMARILLO Procedure on foot Chris MERINO Plan of Treatment Date Care Activity Detail Author Start: 12-30-2023 COVID-19 Vaccine ( season) COVID[facility]19 [facility]ine ( season[facility] Start: 08-16-2023 Adult BMI Screening Adult [facility] Screening [facility] Start: 08-16-2023 Fall Risk Screening Fall Risk Screening [facility] Start: 08-16-2023 Tobacco Screening Tobacco Screening [facility] Start: 1974 Administration of varicella zoster vaccine Zoster (Shingles) Vaccine (1 of 2) [facility] Start: 1974 DTaP,Tdap and Td Vaccines (1 - Tdap) DTaP,Tdap and Td Vaccines (1 - Tdap) [facility] Start: 1967 Depression Screening Depression Screening [facility] Start: 1955 Medicare Annual Wellness Visit Medicare Annual Wellness Visit [facility] Immunizations Immunization Date Immunization Notes Care Provider Fa cili 11-04-2023 Covid-19, Mrna, Lnp- s, Bivalent, Pf, 30mcg/0.3 ml Epifanio Kaufman MD Work Phone: [facility] 08-21-2022 influenza virus vacc ine, unspecified formulation Epifanio Kaufman MD Work Phone: [facility] 08-21-2022 SARS-COV-2 (COVID-19 ) Vaccine, Unspecified Epifanio Kaufman MD Work Phone: [facility] 08-06-2021 Influenza Vaccine, Quadrivalent, Adjuvanted Epifanio Kaufman MD Work Phone: [facility] 02-25-2021 COVID-19, mRNA, LNP- S, PF, 100mcg/0.5mL Dose Epifanio Kaufman MD Work Phone: [facility] 02-12-2021 COVID-19, mRNA, LNP- S, PF, 30mcg/0.3mL Dose Epifanio Kaufman MD Work Phone: [facility] 08-05-2020 influenza, injectabl e, quadrivalent, preservative free Epifanio Kaufman MD Work Phone: [facility] 08-05-2020 pneumococcal polysaccharide vaccine, 23 valent Epifanio Kaufman MD Work Phone: [facility] 09-03-2019 influenza, seasonal, injectable Epifanio Kaufman MD Work Phone: [facility] 08-24-2019 influenza, injectabl e, quadrivalent, preservative free Epifanio Kaufman MD Work Phone: [facility] Payers Date Payer Category Payer Medicaid [id number] 2023 Self-pay [id number] 2022 Medicare [id number] 2021 Medicare AETNA MEDICARE A ETNA MEDICARE PLAN (HMO) [id number] 2021-Present [phone] [address] [place] [address] [id number] 2021 Unknown [id number] 2021 Medicare [id number] 2020 Medicare [id number] 2019 Unknown [id number] 1959 Medicare [id number] [id number] 1955 Unknown [id number] 2.16.840.1.625327.3.579.2.647 1955 Unknown [id number] 2.16.840.1.985622.3.579.2.593 1955 Unknown [id number] 2.16.840.1.894950.3.579.2.593 1955 Unknown [id number] 2.16.840.1.404303.3.579.2.593 1955 Unknown [id number] 2.16.840.1.422965.3.579.2.593 1955 Unknown [id number] 2.16.840.1.264470.3.579.2.593 1955 Unknown [id number] 2.16.840.1.174808.3.579.2.593 1955 Unknown [id number] 2.16.840.1.879613.3.579.2.593 1955 Unknown [id number] 2.16.840.1.116989.3.579.2.1286 1955 Unknown [id number] 2.16.840.1.270669.3.579.2.727 1955 Unknown [id number] 2.16.840.1.135609.3.579.2.727 1955 Unknown [id number] 2.16.840.1.467495.3.579.2.1259 1955 Unknown [id number] 2.16.840.1.594313.3.579.2.1259 1955 Unknown [id number] 2.16.840.1.750583.3.579.2.1259 1955 Unknown [id number] 2.16.840.1.602187.3.579.2.1259 1955 Unknown [id number] 2.16.840.1.413927.3.579.2.1259 1955 Unknown [id number] 2.16.840.1.787124.3.579.2.1259 Medicare [id number] Unknown [id number] 2.16.840.1.587148.3.579.2.531 Social History Date Type Detail Facility Start: 01-01-2021 End: 08-16-2022 Sex Assigned At [facility] Start: 1955 Sex Assigned At Male F [facility] Tobacco smoking status No Smokin g Status [facility] Start: 01-29-[address] [facility] History of tobacco use Current smoker [facility] History of tobacco use Cigarette Smoker P [facility] Start: 01-29-2020 End: 01-01-2021 Cigarettes smoked current (pack per day) - Reported 3 [facility] Start: 01-29-2020 Tobacco use and exposure Smokeless tobacco non-user [facility] Start: 08-16-2022 Alcohol intake Ex-drinker (finding) [facility] Childcare Unknown [facility] Start: 1955 Sex Assigned At Not on file P [facility] Clinical Notes 11-21-2020 to 01-05-2024 Telephone [...] about 6 or 7 years ago, in [facility] and had injections. He states he has made his symptoms worse. Has had wild animal caretaker many years ago for previous symptoms of [...] Past Medical History: Diagnosis Date Bladder cancer ([facility]) around 1997 Cholelithiasis Colon polyp Depression Dyslipidemia Hearing loss Left foot drop Peripheral neuropathy Seizure disorder ([facility]) TIA (transient ischemic attack) Past Surgical History: [...] by mouth in (more content not included)... [facility] 12-21-2023 Miscellaneous Notes Received faxed referral for patient to be seen for Lumbar. Called and spoke to patient, stated he has an appointment set up already at [facility] office. documented in this encounter [facility] 12-21-2023 Telephone encounter Note Received faxed referral for patient to be seen for Lumbar. Called and spoke to patient, stated he has an appointment set up already at [facility] office. [email or web address] [facility] 07-05-2023 Evaluation note Encounter Date Diagnosis [...] fusion of cervical spine (ICD-10 - Z98.1) [facility] Other 06-09-2023 Hospital Discharge instructions Follow Up Care 04/29/2023 15:31:28 With:RABIA GAN, Chris Brizuela, URL Address: [facility] [address] , [place] [address]- [phone] When: Unknown [facility] 11-10-2022 NotePROCEDURE: XR FOOT RT MIN [...] Electronically authenticated by: KELL BLANDON Date: 2022-09-30 08:[address] [place], [place] 0385310-03-2022 NotePROCEDURE: XR KNEE LT 4V or >, [...] authenticated by: TRINIDAD BEAVER Date: 2022-08-23 14: [id number] NotePROCEDURE: XR KNEE LT 4V or >, [...] Electronically authenticated by: TRINIDAD BEAVER Date: 2022-08-23 14:[facility]10-03-2022 NotePROCEDURE: XR KNEE LT 4V or [...] Electronically authenticated by: TRINIDAD BEAVER Date: 2022-08-23 14:[address] [place], [place] 5560405-17-2022 Evaluation note* Encounter Date Diagnosis Assessment Notes Treatment Notes Treatment Clinical Notes March, Bilateral impacted cerumen (ICD-10 - H61.23) Avoid using Q-tips or earplugs. Keep your ears clean and dry. Follow-up with your family physician for any further concerns. [facility] Other 02-07-2022 Evaluation note* Encounter Date Diagnosis [...] contact us for further management as needed. [employer] Other 01-01-2021 NoteMR#: [id number] [facility] Pt. Name: Nazario Cortes Admitted: 11/20/2020 Discharged: [...] to follow up with his PCP and social service liaison. Total time of discharge was 45 minutes. Electronically Signed by: Trinidad Hamilton MD 11/21/2020 08:00 A Trinidad Hamilton MD .. Date Dict: 11/20/2020/06:21 P/Loida Ashley CNP Date Trans: 11/21/2020 12:04 A/shabbir [id number] cc: Jose Marie M.D. [facility] Estephania [facility] [address] [place] [address] note Future Appointments Appointment Date:08/19/2023 10:30:00 AM Scheduled Provider:Chris CAMARILLO MD Location:[facility] Appointment Type:URO New Patient [facility] evaluation noteNo assessment information available [facility] Work Phone: [facility] general Narrative - Reported* Type Description Date Medical History Seizure Disorder Medical History neuropathy Medical History HX of Bladder CA Medical History hypercholesterolemia Surgical History TUMOR REMOVED FROM BLADDER Surgical History RIGHT ACHILLES TENDON REPAIR Hospitalization History See Above [employer] Other History general Narrative - Reported* Type [...] Surgical History gallbladder Hospitalization History See Above [employer] Other Hospital course Narrative No data available for this section [facility] InstructionsNot on filedocumented in this encounter [facility] No data available for this section [facility] reason for visit NarrativeReferral Dr. Newell [facility] [employer] Other Summary Purpose Family History No Family [...] o other toxic agents (G62.2) Referral Organization [facility] Ne urosurgery Referring Provider First Name Luiz Referring Provider Last Name Keely Referring Provider Specialty Neurologica l Surgery Referred Organization [facility] Referred Address ,[place], [place],[address] Referred Provider Specialty Physical The rapist Referral Priority Routine Chief Complaint and Reason for Visit Chief Complaint m51.36. Additional Source Comments (unrecognized sect ion and content) No Status Records FoundNo Status Records FoundNo Status Records FoundNo Status Records FoundNo Status Records FoundNo Status Records FoundNo Status Records FoundNo Status Records Found INFORMATION SOURCE (unrecogn ized section and content) DATE CREATED AUTHOR 08/29/2021 [facility] DATE CREATED AUTHOR AUTHOR'S ORGANIZ ATION 10/31/2021 [facility] DATE CREATED AUTHOR AUTHOR'S ORGANIZ ATION 01/13/2023 [facility] DATE CREATED AUTHOR AUTHOR'S ORGANIZ ATION 07/14/2023 [facility] DATE CREATED AUTHOR AUTHOR'S ORGANIZ ATION 12/25/2023 [facility] DATE CREATED AUTHOR AUTHOR'S ORGANIZ ATION 12/29/2023 [facility] DATE CREATED AUTHOR AUTHOR'S ORGANIZ ATION 01/09/2024 [facility] DATE CREATED AUTHOR AUTHOR'S ORGANIZ ATION 02/22/2024 [facility] EPIC REASON FOR VISIT (unrecogniz ed section and content) RIGHT EAR PRESSURE/PAIN, DEN IES OTHER SXSleft leg weakness, back pain Care Teams (unrecognized sec tion and content) Team Status: Active Member Role Status Dates Jignesh Gonsalez MD Primary Care Provider Active Team Status: Inactive Member Role Status Dates Luiz Riggs MD Attending Provider Active Jignesh Gonsalez MD Primary Care Provider Active Chemical Applicator Relationship Specialty Start Date End Date Jose Marie DO [address] [facility], [facility] [place] [address] PCP - General Family Medicine 11/17/23 Goals [...] BE BASED ON THE PRIMARY CLINICAL RECORDS. [facility] [employer] [facility]. provides no warranty or guarantee of the accuracy or completeness of information in this document.
--- NOTE | 2024-02-23 12:47 | ED.BACK1 ---
HPI HPI - Back Pain/Injury General Chief Complaint: Back Pain/Injury Stated Complaint: RIB PAIN Time Seen by Provider: 02/23/24 12:46 Source: patient Mode of arrival: ambulance Limitations: no limitations History of Present Illness HPI Narrative: Patient here with continued right posterior rib pain. She had he had a previous fall and was diagnosed as is previous rib fracture. He actually saw his primary care doctor yesterday who gave him a prescription for [place] 325/5. He says since 6 AM this morning he is only had 1 pill. He said the pain was worse last night. He has been sleeping in a chair. He says it hurts to take a deep breath. He said 3 days ago he lost his balance and kind of leaned into the wall but did not really think he injured anything further. He has no other new complaints today. He has got 2 very large incisions as noted below this was from previous chest wall skin cancer Related Data Home Medications ?Medication ?Instructions ?Recorded ?Confirmed atorvastatin 10 mg tablet 10 mg PO .hs 05/12/23 12/30/23 citalopram 40 mg tablet 40 mg PO DAILY 05/12/23 12/30/23 meclizine 25 mg tablet 25 mg PO QID PRN dizziness 05/12/23 12/31/23 phenobarbital 32.4 mg tablet 32.4 mg PO Q12H 05/12/23 12/30/23 phenytoin sodium extended 100 mg 100 mg PO Q8H 05/12/23 12/30/23 capsule bupropion HCl 150 mg 24 hr tablet, 150 mg PO DAILY 12/30/23 12/31/23 extended release Previous Rx's ?Medication ?Instructions ?Recorded hydrocodone 5 mg-acetaminophen 325 1 tab PO Q6H PRN pain 3 days #12 02/19/24 mg tablet tabs methocarbamol 750 mg tablet 750 mg PO TID PRN pain #20 tabs 02/19/24 Allergies Allergy/AdvReac Type Severity Reaction Status Date / Time gabapentin Allergy Intermediate Verified 01/30/24 15:16 oxycodone [From OxyContin] Allergy Intermediate Verified 01/30/24 15:16 phenytoin [From Dilantin] Allergy Intermediate Verified 01/30/24 15:16 Opioid HPI Opioid Management Most Recent Opioid Data: Last Pain Scale 7 02/23/24 13:20 Last ED Pain Assessment 02/23/24 13:20 Last MAR Pain Assessment 02/23/24 13:06 [facility] Medical History (Updated 02/23/24 @ 13:36 by Dhaval Shahid MD) CAD, multiple vessel ?I25.10 - Atherosclerotic heart disease of minto coronary artery without angina pectoris (ICD-10) 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 - Malignant neoplasm of mediastinum, part unspecified (ICD-10) Bladder cancer ?C67.9 - Malignant neoplasm of bladder, unspecified (ICD-10) HLD (hyperlipidemia) ?E78.5 - Hyperlipidemia, unspecified (ICD-10) Chest pain ?R07.9 - Chest pain, unspecified (ICD-10) Family History (Updated 12/31/23 @ 12:13 by Shaikh Florentin MD) Father Family history of myocardial infarction Sister Family history of cancer Social History Smoking status: Former smoker Highest level of school completed/degree received: Associate degree: occupational, technical, vocational program Gender Identity: male Exam Narrative Exam Narrative: Sitting at a 45 degree angle he says he is relatively comfortable but when he moves about he has discomfort. The pulse ox is 93% on room air. He denies any previous history of COPD emphysema or asthma. He does not have any subcutaneous emphysema. There is no skin lesions or evidence of shingles. Does not have any subcutaneous emphysema. There is no obvious bruising at the time. His lung sounds are present but it causes pain from take a deep breath. His heart sounds are normal. Trachea is midline. Constitutional Vital Signs, click to edit/add: Last Vital Signs Temp 98.0 F 02/23/24 12:05 Pulse 69 02/23/24 12:05 Resp 20 02/23/24 12:05 BP 156/79 H 02/23/24 12:05 Pulse Ox 93 L 02/23/24 12:05 O2 Del Method Room Air 02/23/24 12:05 Course Vital Signs Vital signs: Vital Signs Temperature 98.0 F 02/23/24 12:05 Pulse Rate 69 02/23/24 12:05 Respiratory Rate 20 02/23/24 12:05 Blood Pressure 156/79 H 02/23/24 12:05 Pulse Oximetry 93 L 02/23/24 12:05 Oxygen Delivery Method Room Air 02/23/24 12:05 Temperature 98.0 F 02/23/24 12:05 Pulse Rate 69 02/23/24 12:05 Respiratory Rate 20 02/23/24 12:05 Blood Pressure 156/79 H 02/23/24 12:05 Pulse Oximetry 93 L 02/23/24 12:05 Oxygen Delivery Method Room Air 02/23/24 12:05 MDM - Back Pain/Injury MDM Narrative Medical decision making narrative: Patient's repeat imaging here does not show any evidence of hemothorax or pneumothorax. I believe he has been inadequately taking his pain medications. He can combine his neuro with analgesics. Discharge Plan Discharge Stand Alone Forms: Portal Instructions Chief Complaint: Back Pain/Injury Clinical Impression: Closed fracture of rib with routine healing Patient Disposition: Home, Self-Care Time of Disposition Decision: 13:36 Prescriptions / Home Meds: No Action bupropion HCl 150 mg tablet extended release 24 hr 150 mg PO DAILY hydrocodone-acetaminophen 5-325 mg tablet 1 tab PO Q6H PRN (Reason: pain) 3 Days Qty: 12 0RF Rx Instructions: M54.5 methocarbamol 750 mg tablet 750 mg PO TID PRN (Reason: pain) Qty: 20 0RF atorvastatin 10 mg tablet 10 mg PO .hs citalopram 40 mg tablet 40 mg PO DAILY meclizine 25 mg tablet 25 mg PO QID PRN (Reason: dizziness) phenobarbital 32.4 mg tablet 32.4 mg PO Q12H phenytoin sodium extended 100 mg capsule 100 mg PO Q8H Print Language: Bengali Additional Instructions: Resume your pain meds taking both Neurontin and Vicodin Referrals: Jignesh Manjarrez MD [Primary Care Provider] - 1 week
--- NOTE | 2024-02-23 12:55 | XR_ITS ---
The [address] [address] Patient Name: GÓMEZ CORTES MRN: [id number] date: 1955 Sex: M Assigned Patient Location: ER Current Patient Location: ER Accession/Order Number: [id number] Exam Date: 02/23/2024 13:03 Report Date: 02/23/2024 13:18 At the request of: MIKA DAVEY Procedure: XR chest 1V Exam: Radiographs: XR chest 1V Reason for exam: Rule out pneumothorax secondary to rib trauma Comparison: Chest x-ray dated 12/30/2023 XR/XR chest 1V IMPRESSION: Small amount of atelectasis and/or infiltrate in the left lower lung. Right perihilar operative changes. Pulmonary venous hypertension. Left glenoid postoperative change. Cervical spine fusion hardware. Remainder of the chest is unremarkable. Electronically authenticated by: CHELLE ROSARIO Date: 02/23/2024 13:18
[2024-02-23] MEDS: HYDROMORPHONE HCL 1 MG/ML CARTRIDGE 2 MG IM (13:06)
== END 2024-02-23 14:06 | disposition home or self-care (01) ==
PROVIDERS: Emergency Provider Emergency Medicine Emergency Medical Services; PCP Family Medicine
DX: S22.39XA Fracture of one rib, unspecified side, initial encounter for closed fracture (principal); W19.XXXA Unspecified fall, initial encounter; Z85.828 Personal history of other malignant neoplasm of skin; I25.10 Atherosclerotic heart disease of native coronary artery without angina pectoris; E78.5 Hyperlipidemia, unspecified; C67.9 Malignant neoplasm of bladder, unspecified; Z87.891 Personal history of nicotine dependence
CPT/HCPCS: 71045; 96372; 99284; J1170

== ENCOUNTER 2024-03-27 10:26 | Outpatient (OUT) | payer MEDICARE, MEDICAID, SELFPAY | END 2024-03-27 10:27 | disposition home or self-care (01) | LOC: NM 10:26 | PROVIDERS: PCP Family Medicine; Visit Provider Internal Medicine | DX: R07.89 Other chest pain (principal) | CPT/HCPCS: 78452; A9500 ==

== ENCOUNTER 2024-04-03 08:53 | Outpatient (OUT) | payer MEDICARE, MEDICAID, SELFPAY ==
--- NOTE | 2024-04-03 | PCN_ITS ---
CARDIAC STRESS TEST Requesting Physician: < > Procedure Date: 04/03/2024 REASON FOR THE TEST: Chest pain. At baseline, the patient was noted to be in sinus rhythm with a heart rate of 75 beats per minute and blood pressure of 136/70 mm/Hg. Following infusion, the heart rate had increased to a maximum of 88 beats per minute, with a blood pressure of 138/72 mm/Hg. The reason for choosing Lexiscan was due to the patient?s inability to walk on the treadmill. Symptoms noted were heaviness to the shoulders with no chest pain. No arrhythmias were noted. On the EKG portion, at baseline, there was sinus rhythm. With administration of Lexiscan, no AV block was noted, no evidence of ST segment changes suggestive of ischemia were seen. IMPRESSION: 1. Baseline sinus rhythm with no evidence of ischemia noted on infusion of Lexiscan,. 2. No evidence of arrhythmia seen. 3. Perfusion part of the study to be dictated by Radiology separately. MANDYD
[2024-04-03] MEDS: REGADENOSON 0.4 MG/5 ML SYRINGE 0.400000000000000022 MG IV (09:41)
== END 2024-04-03 08:54 | disposition home or self-care (01) ==
LOC: CARD 08:54
PROVIDERS: PCP Family Medicine; Visit Provider Internal Medicine
DX: R07.89 Other chest pain (principal)
CPT/HCPCS: 93017; J2785

== ENCOUNTER 2024-04-23 20:55 | Outpatient (OUT) | payer MEDICARE, MEDICAID, SELFPAY ==
--- OUTSIDE RECORDS SUMMARY | 2024-04-23 21:00 | XMS_ITS ---
Patient Summarization (C-CDA 2.1 CCD) Created on: April 23, 2024 Rosa BORRERO~SOPHIA : 1955 Sex: Male Author Organization Sample organization Care Team Providers Care Forensic Analyst Name Role Phone KARINA JAY Attending Unavailable SELF, REFERRED Referring Unavailable JOSE MARIE Primary Care Unavailable KYM JOHN Admitting Unavailable Alex Bonilla Unavailable Neelam Morris Unavailable AME, DR JOSE Danielson Admitting Unavailable FURLONG, DR JOSE Danielson Attending Unavailable NADEREChata, DR JIGNESH Means Primary Care Unavailable JUANCARLOSLOGRICEL, DR JOSE Danielson Primary Care Unavailable CARRIE LAZO Consulting Unavailable FAWWAD, TONY H Admitting Unavailable FAWBRAYAN TONY H Attending Unavailable FAWWAVictorina TONY H Consulting [...] BUENROSTRO Consulting Unavailable ALEJANDRO PINEDA Consulting Unavailable WALLACE, DR JIGNESH Means Primary Care Unavailable PAY ., DR NOVAK Admitting Unavailable PAY ., DR NOVAK Attending Unavailable PAY ., DR NOVAK Consulting Unavailable GRECHNY ., ANNABELLE WILLINGHAM Consulting Unavailabl e AHDORAIN, VIDAL Consulting Unavailable KELL DELANEY Consulting Unavailable WALLACE, DR JIGNESH Means Admitting Unavailable WALLACE, DR JIGNESH Means Attending Unavailable WALLACE, DR JIGNESH Means Primary Care Unavailable BARBER, DR KELL Brizuela Consulting Unavailable NADEREChata, DR JIGNESH Means Consulting Unavailable NADEREChata, DR JIGNESH Means Admitting Unavailable NADERER, DR JIGNESH Means Attending Unavailable WALLACE, DR JIGNESH Means Primary Care Unavailable BARBER, DR KELL Brizuela Consulting Unavailable NADEREChata, DR JIGNESH Means Consulting Unavailable Luiz Riggs Unavailable MD Luiz Riggs Attending Provider [phone] MD Jignesh Gonsalez Primary Care Provider [phone] Luiz Riggs Attending Unavailable Luiz Riggs Admitting Unavailable Jignesh Gonsalez Primary Care Unavailable JIGNESH GONSALEZ Primary Care Physician Jose Marie DO Primary Care Provider [phone] Chris CAMARILLO Attending Unavailable JIGNESH GONSALEZ Referring Unavailable Chris CAMARILLO Attending Unavailable NARAROGERIO Referring Unavailable OVITT, CORNELIO Referring Unavailable OVITT, CORNELIO Attending Unavailable WALLACE, JIGNESH Attending Unavailable JIGNESH GONSALEZ Attending Unavailable SHAIKH MOTLEY Attending Unavailable WALLACE, JIGNESH Attending Unavailable CORNELIO COTTER Attending Unavailable Allergies Allergy Classification Reported Allergen(s) Allergy Type Date of Onset Reaction(s) Facility (5 sources) gabapentin; Translations: [GABAPENTIN] Drug Allergy 0 The [facility] Repository (2 sources) oxyCODONE Drug Allergy 0 [facility] Repository (3 sources) Phenytoin; Translations: [Dilantin] Drug Allergy 0 [facility] Repository (5 sources) gabapentin; Translations: [gabapentin] Drug Allergy 0 Unknown (qualifier value) [facility] (8 sources) oxyCODONE; Translations: [oxycodone] Drug Allergy 0 Difficulty breathing (finding), Angioedema [facility] (5 sources) Phenytoin; Translations: [phenytoin] Drug Allergy 6 Dizziness (finding), Dizziness [facility] (1 source) Phenytoin; Translations: [PHENYTOIN SODIUM EXTENDED] Drug Allergy 6 [facility] Repository (1 source) ALLERGIES NOT ON FILE; Translations: [ALLERGIES NOT ON FILE] Propensity to adverse reactions (disorder) [facility] Repository Encounters Encounter Date Encounter Type Care Provider Facility Start: 04-17-2024 End: 04-17-2024 ambulatory CORNELIO COTTER Not Available Start: 03-07-2024 End: 03-07-2024 ambulatory JIGNESH NADERER Not Available Start: 02-21-2024 End: 02-21-2024 ambulatory JIGNESH NADERER Not Available Start: 01-11-2024 End: 01-11-2024 ambulatory SHAIKH TIESHA Not Available Start: 01-05-2024 End: 01-06-2024 ambulatory [facility] Start: 01-05-2024 End: 01-05-2024 ambulatory [facility] Start: 12-30-2023 ambulatory Chris Waddelli ty:[facility] Start: 12-21-2023 Telephone encounter Epifanio dennison MD Work Phone: [facility] Start: 12-20-2023 ambulatory [facility] Start: 12-19-2023 End: 12-20-2023 ambulatory ROGERIO [facility] Start: 12-15-2023 End: 12-15-2023 ambulatory JIGNESH NADERER Not Available Start: 12-07-2023 End: 12-07-2023 ambulatory JIGNESH NADERER Not Available Start: 11-29-2023 End: 11-29-2023 ambulatory JIGNESH NADERER Not Available Start: 10-06-2023 End: 10-06-2023 ambulatory JIGNESH NADERER Not Available Start: 07-18-2023 End: 07-19-2023 ambulatory JIGNESH NADERER Facility:[facility] Start: 07-18-2023 End: 07-18-2023 Patient encounter procedure Chris ACMARILLO [facility] [place] Start: 07-05-2023 Office outpatient ne w 30 minutes Luiz Riggs [facility] Start: 07-05-2023 End: 07-05-2023 ambulatory MD Jignesh Gonsalez Work Phone: [facility] Work Phone: Start: 07-05-2023 End: 08-15-2023 Patient encounter procedure MD Jignesh Gonsalez Work Phone: [facility] [place] Work Phone: Start: 01-07-2023 End: 01-08-[address] JIGNESH GONSALEZ Facility:[facility] Start: 12-24-2022 End: 12-24-[address] JIGNESH GONSALEZ Facility:[facility] Start: 11-04-2022 End: 11-04-[address] JIGNESH GONSALEZ Facility:[facility] Start: 09-29-2022 End: 09-30-[address] JIGNESH GONSALEZ Facility:[facility] Start: 08-27-[address] JOSE MARIE Fac ility:[facility] Start: 08-23-2022 End: 08-23-[address] PORTER Hopkins Facility:[facility] Start: 06-12-2022 End: 06-12-[address] OJSE MARIE Facility:[facility] Start: 04-06-2022 End: 04-06-2022 ambulatory Neelam Morris Other [employer] Other Start: 04-06-2022 Office outpatient visit 15 minutes Neelam Morris [facility] [place] Start: 12-28-2021 End: 12-28-2021 ambulatory Alex Bonilla Other [employer] Other Start: 12-28-2021 Office outpatient ne w 30 minutes Alex Bonilla [facility] Neurosurgery Start: 11-20-2020 End: 11-20-2020 Emergency department patient visit KARINA JAY Facility:[facility] [[email or web address] Immunizations Immunization Date Immunization Notes Care Provider Fa cility 11-04-2023 Covid-19, Mrna, Lnp- s, Bivalent, Pf, 30mcg/0.3 ml Epifanio Kaufman [facility] 08-21-2022 influenza virus vacc ine, unspecified formulation Epifanio Kaufman MD [facility] 08-21-2022 SARS-COV-2 (COVID-19 ) Vaccine, Unspecified Epifanio Kaufman MD Work Phone: [facility] 08-06-2021 Influenza Vaccine, Quadrivalent, Adjuvanted Epifanio Kaufman MD Work Phone: [facility] 02-25-2021 COVID-19, mRNA, LNP- S, PF, 100mcg/0.5mL Dose Epifanio Kaufman MD Work Phone: [facility] 02-12-2021 COVID-19, mRNA, LNP- S, PF, 30mcg/0.3mL Dose Epifanio Kaufman MD Work Phone: [facility] 08-05-2020 influenza, injectabl e, quadrivalent, preservative free Epifanio Kaufman MD Work Phone: [facility] 08-05-2020 pneumococcal polysaccharide vaccine, 23 valent Epifanio Kaufman MD Work Phone: [facility] 09-03-2019 influenza, seasonal, injectable Epifanio Kaufman MD Work Phone: [facility] 08-24-2019 influenza, injectabl e, quadrivalent, preservative free Epifanio Kaufman MD Work Phone: [facility] Medications Current Medications Medication Drug Class(es) Dates Sig (Normalized) Sig (Original) Acetaminophen / HYDROcodone (2 sources) Opioid Agonist [place] Active take 1 tablet by ambika th [...] 2 mg/ml injectable solution (1 source) vit [id number]-B5- B6 (B-COMPLEX INJECTION) 907-1-279-2-2 mg/mL solution B-Complex 1 QD 0 Active [...] 0 Active Meloxicam Not-Ta noa Meloxicam Active uuitnykqpzpy-khbidfst-ulkphi (MULTIVITAMIN 50 PLUS) tablet (1 source) multivitamin-min [...] 08/30/2022 Active take 1 capsule by mo [facility] every twelve hours Phenytoin Sodium Extended 100 MG 1 capsule Orally every 12 hrs Active vitamin B12 (2 sources) Vitamin B12 Vitamin B12 Acti ve Completed/Discontinued Medications Medication Drug Class(es) Dates Sig (Normalized) Sig (Original) Mens Multivitamin (2 sources) Mens Multivitami n Not-Taking Mens Multivitami n Active Payers Date Payer Category Payer Medicaid [id number] 2023 Self-pay [id number] 2022 Medicare [id number] 2021 Medicare AETNA MEDICARE A ETNA MEDICARE PLAN (HMO) [id number] 2021-Present [phone] [address] [place] [address] [id number] 2021 Unknown [id number] 2021 Medicare [id number] 2020 Medicare [id number] 2019 Unknown [id number] 1959 Medicare [id number] 1955 Unknown [id number] 2.16.840.1.878497.3.579.2.647 1955 Unknown [id number] .840.1.469277.3.579.2.593 1955 Unknown [id number] .840.1.972678.3.579.2.593 1955 Unknown [id number] 2.16.840.1.990936.3.579.2.593 1955 Unknown [id number] 2.16.840.1.789672.3.579.2.593 1955 Unknown [id number] .16.840.1.556334.3.579.2.593 1955 Unknown [id number] 2.16.840.1.984491.3.579.2.593 1955 Unknown [id number] 2.16.840.1.901351.3.579.2.593 1955 Unknown [id number] 2.16.840.1.348829.3.579.2.1286 1955 Unknown [id number] 2.16.840.1.315534.3.579.2.727 1955 Unknown [id number] 2.16.840.1.044454.3.579.2.727 1955 Unknown [id number] 2.16.840.1.741615.3.579.2.1259 1955 Unknown [id number] 2.16.840.1.455121.3.579.2.1259 1955 Unknown [id number] 2.16.840.1.394608.3.579.2.1259 1955 Unknown [id number] 2.16.840.1.201684.3.579.2.1259 1955 Unknown [id number] 2.16.840.1.571394.3.579.2.1259 1955 Unknown [id number] 2.16.840.1.055949.3.579.2.1259 1955 Unknown [id number] 2.16.840.1.589404.3.579.2.1259 1955 Unknown [id number] 2.16.840.1.084539.3.579.2.1259 Medicare [id number] Unknown [id number] 2.16.840.1.142834.3.579.2.531 Plan of Treatment Date Care Activity Detail Author Start: 12-30-2023 COVID-19 Vaccine ( season) COVID-19 Vaccine ( season) [facility] Start: 08-16-2023 Adult BMI Screening Adult BMI Screening [facility] Start: 08-16-2023 Fall Risk Screening Fall Risk Screening [facility] Start: 08-16-2023 Tobacco Screening Tobacco Screening [facility] Start: 1974 Administration of varicella zoster vaccine Zoster (Shingles) Vaccine (1 of 2) [facility] Start: 1974 DTaP,Tdap and Td Vaccines (1 - Tdap) DTaP,Tdap and Td Vaccines (1 - Tdap) [facility] [employer] [facility] Start: 1967 Depression Screening Depression Screening [facility] Start: 1955 Medicare Annual Wellness Visit Medicare Annual Wellness Visit [facility] Problems Active Problems Problem Classification Problem Date [...] disease (1 source) Atherosclerotic heart disease of [place] coronary artery without angina pectoris; Translations: [ASHD [place] CA W/O ANGINA PECTORIS] Onset: 12-27-2022 Chronic [...] 08-16-2022 08-16-2022 Chronic Other aftercare (1 source) half-way (current) use of aspirin; Translations: [[employer] MANAGING CURRENT USE OF ASPIRIN] Onset: 12-27-2022 Episodic Other aftercare (1 source) Other group home (current) drug therapy; Translations: [OTH HALFWAY CURRENT DRUG THERAPY] Onset: 12-27-2022 Episodic Other [...] [Spinal stenosis, cervical region] Onset: 06-22-2022 Episodic Sprains and strains (1 source) Sprain of unspecified site of left knee, initial encounter; Translations: [SPRAIN UNS SITE LT KNEE INITIAL] Onset: 08-25-2022 Episodic Procedures Date Procedure Procedure Detail Performing Clinician Start: 07-05-2023 X-ray of lumbar spin e, six views including bending views MD Jignesh Gonsalez Work Phone: Start: 09-29-[address] JOSE MARIE Comment on above: Performed By: #### P [facility] #### [facility] [address] [address] [address] Jeimy Tenorio Extraction of cataract Patri ck RABIA Procedure on foot Chris MERINO Results Test Name Value Interpretation Reference Range Facility Orders Onlyon 04-11-2024 Orders Only [id number] SophiaNazario john 1955 M Date Provider Department Center 04/11/2024 [id number], HISTORICAL CARD [place] [facility] Family History Problem Relation Age of Onset Supraventricular tachycardia Mother Stroke Father Kidney cancer Sister Diabetes Sister COPD Brother Family Status - Relation Status Age at Mother Father Sister Brother [facility] Consulton 01-05-2024 Consult [id number] SophiaNazario 1955 M Date Provider Department Center 01/05/2024 Oscar-CORNELIO HODGES [facility] [[email or web address]] SURG Second Fl Family History Problem Relation Age of Onset Supraventricular tachycardia Mother Stroke Father Kidney cancer Sister Diabetes Sister COPD Brother Family Status - Relation Status Age at Mother Father Sister Brother Level of Service:85122 DC OFFICE/OUTPATIENT NEW MODERATE MDM 45 MINUTES Reason [...] little relief about 6-7 years ago. Normal [facility] XR lumbar spine 6V w bending on 07-05-2023 XR lumbar spine 6V w bending [facility] [address] [address] XRay Report Signed Patient: Nazario Cortes Jr MR#: [id number] : 1955 Acct:[id number] Age/Sex: 68 / M ADM Date: 07/05/23 Loc: XD Room: Type: [facility] Attending Dr: Luiz Riggs MD [...] Hoa Lockwood M.D.07/05/2023 2:21 PM Dictation Location: [place] [address] Transcribed By: [facility] 07/05/23 1421 Dictated By: Hoa Lockwood MD 07/05/23 1415 Signed By: 07/05/23 1421 [facility] US CAROTID ART BILon 01-11- 023 US CAROTID ART HOMERO EXAMINATION: US [...] by: KELL BLANDON Date: 2023-01-11 08:42 Normal [facility] ECHOCARDIO M/2D COMPLETEon 0 01-07-2023 ECHOCARDIO M/2D COMPLETE Patient: NAZARIO CORTES Exam Date: 01/07/2023 : 1955 Gender:M Ordering : DR JIGNESH GONSALEZ . Admission #: [id number] Family : Order #: [id number] CLICK HERE TO VIEW EXAM ECHOCARDIOGRAM REPORT [...] Smith M.D. on 01/11/2023 at 18:23 Normal [facility] XR ELBOW LT MIN 3 VIEWSon XR [...] by: VIDAL FRASER Date: 2022-12-24 20:23 Normal [facility] XR HIP LT 2 3V W PELVISon [...] VIDAL FRASER Date: 2022-12-24 20:21 Normal [facility] XR HUMERUS LT MIN 2Von 12-24 [...] KELL DELANEY Date: 2022-12-24 21:03 Normal [facility] CBC AUTO DIFFon 11-04-2022 BASO # 0.1 103/ul Normal 0.0-0.1 [facility] Comment on above: Performed By: #### B MP, CMREP, LIPID #### [facility] [address] [address] [address] Jeimy Tenorio Basophils/100 WBC (Bld) 0.9 % Normal 0.2-2.0 [facility] Comment on above: Performed By: #### B MP, CMREP, LIPID #### [facility] [address] [address] [address] Jeimy Tenorio EO # 0.3 103/ul Normal 0.0-0.7 [facility] Comment on above: Performed By: #### B MP, CMREP, LIPID #### [facility] [address] [place] [address] Dr. Jeimy Tenorio Eosinophils/100 WBC (Bld) 5.2 % Normal 0.9-7.0 [facility] Comment on above: Performed By: #### B MP, CMREP, LIPID #### [facility] [address] [place] [address] Dr. Jeimy Tenorio Erythrocyte distribution width (RBC) [Ratio] 12.9 % Normal 11.0-15.0 [facility] Comment on above: Performed By: #### B MP, CMREP, LIPID #### [facility] [address] [place] [address] Dr. Jeimy Tenorio Hematocrit (Bld) [Volume fraction] 39.5 % Critically low 42.0-54.0 [facility] Comment on above: Performed By: #### B MP, CMREP, LIPID #### [facility] [address] [place] [address] Dr. Jeimy Tenorio Hemoglobin (Bld) [Mass/Vol] 13.1 g/dL Critically low 14.0-18.0 [facility] Comment on above: Performed By: #### B MP, CMREP, LIPID #### [facility] [address] [place] [address] Dr. Jeimy Tenorio IG # 0.03 10e3/ul Normal 0.00-0.03 [facility] Comment on above: Performed By: #### B MP, CMREP, LIPID #### [facility] [address] [place] [address] Dr. Jeimy Tenorio IG % 0.5 % Normal 0.0-0.5 [facility] Comment on above: Performed By: #### B MP, CMREP, LIPID #### [facility] [address] [place] [address] Dr. Jeimy Tenorio LYMPH # 1.5 103/ul Normal 1.2-3.8 [facility] Comment on above: Performed By: #### B MP, CMREP, LIPID #### [facility] [address] [place] [address] Dr. Jeimy Tenorio Lymphocytes/100 WBC (Bld) 22.6 % Normal 20.5-60.0 [facility] Comment on above: Performed By: #### B MP, CMREP, LIPID #### [facility] [address] [place] [address] Dr. Jeimy Tenorio MANUAL DIFF REQ NO Normal [facility] Comment on above: Performed By: #### B MP, CMREP, LIPID #### [facility] [address] [place] [address] Dr. Jeimy Tenorio MCH (RBC) [Entitic mass] 32.8 pg Normal 25.9-34.0 [facility] Comment on above: Performed By: #### B MP, CMREP, LIPID #### [facility] [address] [place] [address] Dr. Jeimy Tenorio MCHC (RBC) [Mass/Vol] 33.2 g/dL Normal 29.9-35.2 [facility] Comment on above: Performed By: #### B MP, CMREP, LIPID #### [facility] [address] [place] [address] Dr. Jeimy Tenorio MCV (RBC) [Entitic vol] 99.0 fL Critically high 80.0-94.0 [facility] Comment on above: Performed By: #### B MP, CMREP, LIPID #### [facility] [address] [address] [address] Jeimy Tneorio MONO # 0.7 103/ul Normal 0.3-0.8 [facility] Comment on above: Performed By: #### B MP, CMREP, LIPID #### [facility] [address] [place] [address] Dr. Jeimy Tenorio Monocytes/100 WBC (Bld) 10.6 % Normal 1.7-12.0 [facility] Comment on above: Performed By: #### B MP, CMREP, LIPID #### [facility] [address] [place] [address] Dr. Jeimy Tenorio NEUT # 4.0 103/ul Normal 1.4-6.5 [facility] Comment on above: Performed By: #### B MP, CMREP, LIPID #### [facility] [address] [place] [address] Dr. Jeimy Tenorio Neutrophils/100 WBC (Bld) 60.2 % Normal 43.0-75.0 [facility] Comment on above: Performed By: #### B MP, CMREP, LIPID #### [facility] [address] [place] [address] Dr. Jeimy Tenorio Platelet mean volume (Bld) [Entitic vol] 9.7 fL Normal 9.5-13.5 [facility] Comment on above: Performed By: #### B MP, CMREP, LIPID #### [facility] [address] [place] [address] Dr. Jeimy Tenorio PLT 176 103/ul Normal 150-450 [facility] Comment on above: Performed By: #### B MP, CMREP, LIPID #### [facility] [address] [place] [address] Dr. Jeimy Tenorio RBC 3.99 106/ul Critically low 4.70-6.10 [facility] Comment on above: Performed By: #### B MP, CMREP, LIPID #### [facility] [address] [place] [address] Dr. Jeimy Tenorio WBC 6.6 103/ul Normal 4.0-11.0 [facility] Comment on above: Performed By: #### B MP, CMREP, LIPID #### [facility] [address] [address] HEAD WO CONon [...] ALEJANDRO PINEDA Date: 2022-11-04 14:08 Normal [facility]-21 SARS-CoV-2 (COVID-19) RNA ALEX+probe Ql (Unsp spec) Not detected Normal NOT DETECTED [facility] Comment on above: Result Comment: This test is not yet approved or cleared by the [place] FDA. When there are no FDA-approved or cleared tests available, and other criteria are met, FDA can make tests available under an emergency access mechanism called an Emergency Use Authorization (EUA). The EUA for this test is supported by the Director Of Blood of Health and Human Service's (HHS's) declaration [...] By: #### B MP, CMREP, LIPID #### [facility] [address] [place] [address] Dr. Jeimy Tenorio INFLUENZA A AND B AGon 11-04 INFLUANEGH SEE BELOW Normal [facility] Comment on above: Result Comment: Nega tive for Flu A protein angiten. Infection due to Flu A cannot be ruled out. Flu A angiten in the sample may be below the detection limit of the test. Performed By: #### I NFLUAB #### [facility] [address] [place] [address] Dr. Jeimy Tenorio INFLUBNEGH SEE BELOW Normal [facility] Comment on above: Result Comment: Nega tive for Flu B protein antigen. Infection due to Flu B cannot be ruled out. Flu B antigen in the sample may be below the detection limit of the test. Performed By: #### I NFLUAB #### [facility] [address] [place] [address] Dr. Jeimy Tenorio INFLUENZA A AG Negative Normal NEGATIVE SEE COMMENT [facility] Comment on above: Performed By: #### I NFLUAB #### [facility] [address] [place] [address] Dr. Jeimy Tenorio INFLUENZA B AG Negative Normal NEGATIVE SEE COMMENT [facility] Comment on above: Performed By: #### I NFLUAB #### [facility] [address] [place] [address] Dr. Jeimy Tenorio INTERNAL CONTROLS Within Normal Limits Normal Wi thin Normal Limits [facility] Comment on above: Performed By: #### I NFLUAB #### [facility] [address] [place] [address] Dr. Jeimy Tenorio PROF CHEM 8 (BAS METB)on Anion gap [Moles/Vol] 9.7 mmol/L Normal [facility] Comment on above: Performed By: #### C BC #### [facility] [address] [place] [address] Dr. Jeimy Tenorio Calcium [Mass/Vol] 8.0 mg/dL Critically low 8.5-10.1 Th e [facility] Comment on above: Performed By: #### C BC #### [facility] [address] [place] [address] Dr. Jeimy Tenorio Chloride [Moles/Vol] 104 mmol/L Normal 98-107 [facility] Comment on above: Performed By: #### C BC #### [facility] [address] [place] [address] Dr. Jeimy Tenorio CO2 [Moles/Vol] 31.1 mmol/L Normal 21.0-32.0 [facility] Comment on above: Performed By: #### C BC #### [facility] [address] [place] [address] Dr. Jeimy Tenorio Creatinine [Mass/Vol] 0.75 mg/dL Normal 0.70-1.30 [facility] Comment on above: Performed By: #### C BC #### [facility] [address] [place] [address] Dr. Jeimy Tenorio EGFR-AF M[place]ICAN >60 Normal >=60 [facility] Comment on above: Performed By: #### C BC #### [facility] [address] [place] [address] Dr. Jeimy Tenorio EGFR-NON AF [place]ICAN >60 Normal >=60 [facility] Comment on above: Performed By: #### C BC #### [facility] [address] [place] [address] Dr. Jeimy Tenorio Glucose [Mass/Vol] 76 mg/dL Normal 74-106 [facility] Comment on above: Performed By: #### C BC #### [facility] [address] [place] [address] Dr. Jeimy Tenorio Potassium [Moles/Vol] 3.8 mmol/L Normal 3.5-5.1 [facility] Comment on above: Performed By: #### C BC #### [facility] [address] [address] [address] Jeimy Tenorio Sodium [Moles/Vol] 141 mmol/L Normal 136-145 [facility] Comment on above: Performed By: #### C BC #### [facility] [address] [place] [address] Dr. Jeimy Tenorio Urea nitrogen [Mass/Vol] 12.0 mg/dL Normal 7.0-18.0 [facility] Comment on above: Performed By: #### C BC #### [facility] [address] [place] [address] Dr. Jeimy Tenorio Urea nitrogen/Creatinine [Mass ratio] 16.0 mg/mg Normal [facility] Comment on above: Performed By: #### C BC #### [facility] [address] [place] [address] Dr. Jeimy Tenorio TROPONIN, HIGH SENSITIVITYon 11-04-2022 HSTROP 5.8 pg/mL Normal 4.0-76.1 [facility] Comment on above: Result Comment: CUT- OFF POINTS HAVE BEEN ESTABLISHED BASED ON THE FOURTH UNIVERSAL DEFINITIONS OF MYOCARDIAL INFARCTION. THE UPPER REFERENCE LIMIT (URL) OF TROPONIN, DEFINED THE 99TH PERCENTILE OF cTnI DISTRIBUTION IN A REFERENCE POPULATION, HAS BEEN CONFIRMED THE DECISION THRESHOLD FOR DC DIAGNOSIS. Performed By: #### C BC #### [facility] [address] [place] [address] Dr. Jeimy Tenorio CBC AUTO DIFFon 09-29-2022 BASO # 0.1 103/ul Normal 0.0-0.1 [facility] Comment on above: Performed By: #### B MP, CMREP, LIPID #### [facility] [address] [place] [address] Dr. Jeimy Tenorio Basophils/100 WBC (Bld) 1.2 % Normal 0.2-2.0 [facility] Comment on above: Performed By: #### B MP, CMREP, LIPID #### [facility] [address] [place] [address] Dr. Jeimy Tenorio EO # 0.3 103/ul Normal 0.0-0.7 [facility] Comment on above: Performed By: #### B MP, CMREP, LIPID #### [facility] [address] [place] [address] Dr. Jeimy Tenorio Eosinophils/100 WBC (Bld) 4.9 % Normal 0.9-7.0 [facility] Comment on above: Performed By: #### B MP, CMREP, LIPID #### [facility] [address] [place] [address] Dr. Jeimy Tenorio Erythrocyte distribution width (RBC) [Ratio] 13.2 % Normal 11.0-15.0 [facility] Comment on above: Performed By: #### B MP, CMREP, LIPID #### [facility] [address] [place] [address] Dr. Jeimy Tenorio Hematocrit (Bld) [Volume fraction] 42.3 % Normal 42.0-54.0 [facility] Comment on above: Performed By: #### B MP, CMREP, LIPID #### [facility] [address] [place] [address] Dr. Jeimy Tenorio Hemoglobin (Bld) [Mass/Vol] 13.8 g/dL Critically low 14.0-18.0 [facility] Comment on above: Performed By: #### B MP, CMREP, LIPID #### [facility] [address] [place] [address] Dr. Jeimy Tenorio IG # 0.02 10e3/ul Normal 0.00-0.03 [facility] Comment on above: Performed By: #### B MP, CMREP, LIPID #### [facility] [address] [place] [address] Dr. Jeimy Tenorio IG % 0.3 % Normal 0.0-0.5 [facility] Comment on above: Performed By: #### B MP, CMREP, LIPID #### [facility] [address] [place] [address] Dr. Jeimy Tenorio LYMPH # 1.3 103/ul Normal 1.2-3.8 [facility] Comment on above: Performed By: #### B MP, CMREP, LIPID #### [facility] [address] [address] [address] Jeimy Tenorio Lymphocytes/100 WBC (Bld) 19.5 % Critically low 20.5-60.0 [facility] Comment on above: Performed By: #### B MP, CMREP, LIPID #### [facility] [address] [place] [address] Dr. Jeimy Tenorio MANUAL DIFF REQ NO Normal [facility] Comment on above: Performed By: #### B MP, CMREP, LIPID #### [facility] [address] [place] [address] Dr. Jeimy Tenorio MCH (RBC) [Entitic mass] 32.9 pg Normal 25.9-34.0 [facility] Comment on above: Performed By: #### B MP, CMREP, LIPID #### [facility] [address] [place] [address] Dr. Jeimy Tenorio MCHC (RBC) [Mass/Vol] 32.6 g/dL Normal 29.9-35.2 [facility] Comment on above: Performed By: #### B MP, CMREP, LIPID #### [facility] [address] [place] [address] Dr. Jeimy Tenorio MCV (RBC) [Entitic vol] 100.7 fL Critically high 80.0-94.0 [facility] Comment on above: Performed By: #### B MP, CMREP, LIPID #### [facility] [address] [place] [address] Dr. Jeimy Tenorio MONO # 0.7 103/ul Normal 0.3-0.8 [facility] Comment on above: Performed By: #### B MP, CMREP, LIPID #### [facility] [address] [place] [address] Dr. Jeimy Tenorio Monocytes/100 WBC (Bld) 9.9 % Normal 1.7-12.0 [facility] Comment on above: Performed By: #### B MP, CMREP, LIPID #### [facility] [address] [place] [address] Dr. Jeimy Tenorio NEUT # 4.3 103/ul Normal 1.4-6.5 [facility] Comment on above: Performed By: #### B MP, CMREP, LIPID #### [facility] [address] [address] [address] Jeimy Tenorio Neutrophils/100 WBC (Bld) 64.2 % Normal 43.0-75.0 [facility] Comment on above: Performed By: #### B MP, CMREP, LIPID #### [facility] [address] [place] [address] Dr. Jeimy Tenorio Platelet mean volume (Bld) [Entitic vol] 10.4 fL Normal 9.5-13.5 [facility] Comment on above: Performed By: #### B MP, CMREP, LIPID #### [facility] [address] [place] [address] Dr. Jeimy Tenorio PLT 209 103/ul Normal 150-450 [facility] Comment on above: Performed By: #### B MP, CMREP, LIPID #### [facility] [address] [place] [address] Dr. Jeimy Tenorio RBC 4.20 106/ul Critically low 4.70-6.10 [facility] Comment on above: Performed By: #### B MP, CMREP, LIPID #### [facility] [address] [place] [address] Dr. Jeimy Tenorio WBC 6.7 103/ul Normal 4.0-11.0 [facility] Comment on above: Performed By: #### B MP, CMREP, LIPID #### [facility] [address] [place] [address] Dr. Jeimy Tenorio DILANTINon 09-29-2022 Phenytoin [Mass/Vol] 23.7 ug/mL Critically high 10.0-20.0 [facility] Comment on above: Performed By: #### C BC #### [facility] [address] [place] [address] Dr. Jeimy Tenorio GLYCOHEMOGLOBIN A1Con 2021 ADA RECOMMENDATION SEE BELOW Normal [facility] Comment on above: Result Comment: ADA RECOMMENDED LIMIT 4.0 - 6.0 ADA THERAPEUTIC TARGET < 7.0 ACTION SUGGESTED > 7.0 Performed By: #### A 1C #### [facility] [address] [address] [address] Jeimy Tenorio Glucose [Mass/Vol] 105 mg/dL Normal [facility] Comment on above: Performed By: #### A 1C #### [facility] [address] [address] [address] Jeimy Tenorio HbA1c (Bld) [Mass fraction] 5.3 % Normal 4.5-6.2 [facility] Comment on above: Performed By: #### A 1C #### [facility] [address] [place] [address] Dr. Jeimy Tenorio LIPID PROFILEon 09-29-2022 CHOL-HDL RATIO NORM SEE BELOW Normal [facility] Comment on above: Result Comment: 3.3 - 4.4 LOW RISK 4.4 - 7.1 AVERAGE RISK 7.1 - 11.0 MODERATE RISK >11.0 HIGH RISK Performed By: #### B MP, CMREP, LIPID #### [facility] [address] [address] [address] Jeimy Tenorio Cholesterol [Mass/Vol] 178 mg/dL Normal <=200 [facility] Comment on above: Performed By: #### B MP, CMREP, LIPID #### [facility] [address] [place] [address] Dr. Jeimy Tenorio Cholesterol in HDL [Mass/Vol] 56 mg/dL Normal 40-60 [facility] Comment on above: Performed By: #### B MP, CMREP, LIPID #### [facility] [address] [address] [address] Jeimy Tenorio Cholesterol in LDL [Mass/Vol] 86.8 mg/dL Normal [facility] Comment on above: Performed By: #### B MP, CMREP, LIPID #### [facility] [address] [place] [address] Dr. Jeimy Tenorio Cholesterol.total/Ch olesterol in HDL [Mass ratio] 3.2 {ratio} Normal [facility] Comment on above: Performed By: #### B MP, CMREP, LIPID #### [facility] [address] [place], [place] [id number] Dr. Jeimy Tenorio HDL NORMAL > or = 60 mg/dl - LO W CARDIOVASCULAR RISK <40 mg/dl - HIGH CARDIOVASCULAR RISK Normal [facility] Comment on above: Performed By: #### B MP, CMREP, LIPID #### [facility] [address] [address] [address] Jeimy Tenorio LDL CALC NORMAL SEE BELOW Normal [facility] Comment on above: Result Comment: <100 mg/dl OPTIMAL 100 - 129 mg/dl NEAR OR ABOVE OPTIMAL 130 - 159 mg/dl BORDERLINE HIGH 160 - 189 mg/dl HIGH >190 mg/dl VERY HIGH Performed By: #### B MP, CMREP, LIPID #### [facility] [address] [address] [address] Jeimy Tenorio Triglyceride [Mass/Vol] 176 mg/dL Critically high <=150 [facility] Comment on above: Performed By: #### B MP, CMREP, LIPID #### [facility] [address] [address] [address] Jeimy Tenorio VLDL CALC 35.2 mg/dL Normal [facility] Comment on above: Performed By: #### B MP, CMREP, LIPID #### [facility] [address] [address] [address] Jeimy Tenorio LIVER PROFILEon 09-29-2022 Albumin [Mass/Vol] 3.5 g/dL Normal 3.4-5.0 [facility] Comment on above: Performed By: #### B MP, CMREP, LIPID #### [facility] [address] [place] [address] Dr. Jeimy Tenorio Albumin/Globulin [Mass ratio] 0.8 {ratio} Normal [facility] Comment on above: Performed By: #### B MP, CMREP, LIPID #### [facility] [address] [place] [address] Dr. Jeimy Tenorio ALP [Catalytic activity/Vol] 139 U/L Critically high 46-116 [facility] Comment on above: Performed By: #### B MP, CMREP, LIPID #### [facility] [address] [place] [address] Dr. Jeimy Tenorio ALT [Catalytic activity/Vol] 25 U/L Normal 16-63 [facility] Comment on above: Performed By: #### B MP, CMREP, LIPID #### [facility] [address] [place] [address] Dr. Jeimy Tenorio AST [Catalytic activity/Vol] 23 U/L Normal 15-37 [facility] Comment on above: Performed By: #### B MP, CMREP, LIPID #### [facility] [address] [place] [address] Dr. Jeimy Tenorio BILI, CONJUGATED 0.0 mg/dL Normal 0.0-0.2 [facility] Comment on above: Performed By: #### B MP, CMREP, LIPID #### [facility] [address] [place] [address] Dr. Jeimy Tenorio Bilirubin [Mass/Vol] 0.3 mg/dL Normal 0.2-1.0 [facility] Comment on above: Performed By: #### B MP, CMREP, LIPID #### [facility] [address] [place] [address] Dr. Jeimy Tenorio Globulin (S) [Mass/Vol] 4.3 g/dL Normal [facility] Comment on above: Performed By: #### B MP, CMREP, LIPID #### [facility] [address] [place] [address] Dr. Jeimy Tenorio Protein [Mass/Vol] 7.8 g/dL Normal 6.4-8.2 [facility] Comment on above: Performed By: #### B MP, CMREP, LIPID #### [facility] [address] [place] [address] Dr. Jeimy Tenorio PROF CHEM 8 (BAS METB)on Anion gap [Moles/Vol] 8.7 mmol/L Normal [facility] Comment on above: Performed By: #### B MP, CMREP, LIPID #### [facility] [address] [place] [address] Dr. Jeimy Tenorio Calcium [Mass/Vol] 8.7 mg/dL Normal 8.5-10.1 [facility] Comment on above: Performed By: #### B MP, CMREP, LIPID #### [facility] [address] [address] [address] Jeimy Tenorio Chloride [Moles/Vol] 104 mmol/L Normal 98-107 [facility] Comment on above: Performed By: #### B MP, CMREP, LIPID #### [facility] [address] [address] [address] Jeimy Tenorio CO2 [Moles/Vol] 29.8 mmol/L Normal 21.0-32.0 [facility] Comment on above: Performed By: #### B MP, CMREP, LIPID #### [facility] [address] [address] [address] Jeimy Tenorio Creatinine [Mass/Vol] 0.76 mg/dL Normal 0.70-1.30 [facility] Comment on above: Performed By: #### B MP, CMREP, LIPID #### [facility] [address] [place] [address] Dr. Jeimy Tenorio EGFR-AF MEXICAN >60 Normal >=60 [facility] Comment on above: Performed By: #### B MP, CMREP, LIPID #### [facility] [address] [place] [address] Dr. Jeimy Tenorio EGFR-NON AF MEXICAN >60 Normal >=60 [facility] Comment on above: Performed By: #### B MP, CMREP, LIPID #### [facility] [address] [address] [address] Jeimy Tenorio Glucose [Mass/Vol] 95 mg/dL Normal 74-106 [facility] Comment on above: Performed By: #### B MP, CMREP, LIPID #### [facility] [address] [address] [address] Jeimy Tenorio Potassium [Moles/Vol] 4.5 mmol/L Normal 3.5-5.1 [facility] Comment on above: Performed By: #### B MP, CMREP, LIPID #### [facility] [address] [address] [address] Jeimy Tenorio Sodium [Moles/Vol] 138 mmol/L Normal 136-145 [facility] Comment on above: Performed By: #### B MP, CMREP, LIPID #### [facility] [address] [place] [address] Dr. Jeimy Tenorio Urea nitrogen [Mass/Vol] 18.0 mg/dL Normal 7.0-18.0 [facility] Comment on above: Performed By: #### B MP, CMREP, LIPID #### [facility] [address] [place] [address] Dr. Jeimy Tenorio Urea nitrogen/Creatinine [Mass ratio] 23.7 mg/mg Normal [facility] Comment on above: Performed By: #### B MP, CMREP, LIPID #### [facility] [address] [place] [address] Dr. Jeimy Tenorio TSHon 09-29-2022 TSH 1.694 uIU/mL Normal 0.358-3.740 [facility] Comment on above: Performed By: #### B MP, CMREP, LIPID #### [facility] [address] [place] [address] Dr. Jeimy Tenorio CARDIAC SAWYER 3-6on 2 CK [Catalytic activity/Vol] 53 U/L Normal 39-308 [facility] Comment on above: Performed By: #### C BC #### [facility] [address] [place] [address] Dr. Jeimy Tenorio CK [Catalytic activity/Vol] 47 U/L Normal 39-308 [facility] Comment on above: Performed By: #### B MP, CMREP, LIPID #### [facility] [address] [place] [address] Dr. Jeimy Tenorio CK.MB [Mass/Vol] 0.80 ng/mL Normal <=3.60 [facility] Comment on above: Performed By: #### C BC #### [facility] [address] [place] [address] Dr. Jeimy Tenorio CK.MB [Mass/Vol] 0.77 ng/mL Normal <=3.60 [facility] Comment on above: Performed By: #### B MP, CMREP, LIPID #### [facility] [address] [place] [address] Dr. Jeimy Tenorio HSTROP 6.2 pg/mL Normal 4.0-76.1 [facility] Comment on above: Result Comment: CUT- OFF POINTS HAVE BEEN ESTABLISHED BASED ON THE FOURTH UNIVERSAL DEFINITIONS OF MYOCARDIAL INFARCTION. THE UPPER REFERENCE LIMIT (URL) OF TROPONIN, DEFINED THE 99TH PERCENTILE OF cTnI DISTRIBUTION IN A REFERENCE POPULATION, HAS BEEN CONFIRMED THE DECISION THRESHOLD FOR DC DIAGNOSIS. Performed By: #### C BC #### [facility] [address] [place] [address] Dr. Jeimy Tenorio HSTROP 6.9 pg/mL Normal 4.0-76.1 [facility] Comment on above: Result Comment: CUT- OFF POINTS HAVE BEEN ESTABLISHED BASED ON THE FOURTH UNIVERSAL DEFINITIONS OF MYOCARDIAL INFARCTION. THE UPPER REFERENCE LIMIT (URL) OF TROPONIN, DEFINED THE 99TH PERCENTILE OF cTnI DISTRIBUTION IN A REFERENCE POPULATION, HAS BEEN CONFIRMED THE DECISION THRESHOLD FOR DC DIAGNOSIS. Performed By: #### B MP, CMREP, LIPID #### [facility] [address] [place] [address] Dr. Jeimy Tenorio CBC AUTO DIFFon 06-12-2022 BASO # 0.1 103/ul Normal 0.0-0.1 [facility] Comment on above: Performed By: #### C BC #### [facility] [address] [place] [address] Dr. Jeimy Tenorio Basophils/100 WBC (Bld) 0.9 % Normal 0.2-2.0 [facility] Comment on above: Performed By: #### C BC #### [facility] [address] [place] [address] Dr. Jeimy Tenorio EO # 0.3 103/ul Normal 0.0-0.7 [facility] Comment on above: Performed By: #### C BC #### [facility] [address] [place] [address] Dr. Jeimy Tenorio Eosinophils/100 WBC (Bld) 5.2 % Normal 0.9-7.0 [facility] Comment on above: Performed By: #### C BC #### [facility] [address] [place] [address] Dr. Jeimy Tenorio Erythrocyte distribution width (RBC) [Ratio] 13.0 % Normal 11.0-15.0 [facility] Comment on above: Performed By: #### C BC #### [facility] [address] [place] [address] Dr. Jeimy Tenorio Hematocrit (Bld) [Volume fraction] 39.1 % Critically low 42.0-54.0 [facility] Comment on above: Performed By: #### C BC #### [facility] [address] [place] [address] Dr. Jeimy Tenorio Hemoglobin (Bld) [Mass/Vol] 13.2 g/dL Critically low 14.0-18.0 [facility] Comment on above: Performed By: #### C BC #### [facility] [address] [place] [address] Dr. Jeimy Tenorio IG # 0.03 10e3/ul Normal 0.00-0.03 [facility] Comment on above: Performed By: #### C BC #### [facility] [address] [place] [address] Dr. Jeimy Tenorio IG % 0.5 % Normal 0.0-0.5 [facility] Comment on above: Performed By: #### C BC #### [facility] [address] [place] [address] Dr. Jeimy Tenorio LYMPH # 1.7 103/ul Normal 1.2-3.8 [facility] Comment on above: Performed By: #### C BC #### [facility] [address] [place] [address] Dr. Jeimy Tenorio Lymphocytes/100 WBC (Bld) 26.0 % Normal 20.5-60.0 [facility] Comment on above: Performed By: #### C BC #### [facility] [address] [place] [address] Dr. Jeimy Tenorio MANUAL DIFF REQ NO Normal [facility] Comment on above: Performed By: #### C BC #### [facility] [address] [place] [address] Dr. Jeimy Tenorio MCH (RBC) [Entitic mass] 33.2 pg Normal 25.9-34.0 [facility] Comment on above: Performed By: #### C BC #### [facility] [address] [place] [address] Dr. Jeimy Tenorio MCHC (RBC) [Mass/Vol] 33.8 g/dL Normal 29.9-35.2 [facility] Comment on above: Performed By: #### C BC #### [facility] [address] [place] [address] Dr. Jeimy Tenorio MCV (RBC) [Entitic vol] 98.5 fL Critically high 80.0-94.0 [facility] Comment on above: Performed By: #### C BC #### [facility] [address] [place] [address] Dr. Jeimy Tenorio MONO # 0.8 103/ul Normal 0.3-0.8 [facility] Comment on above: Performed By: #### C BC #### [facility] [address] [place] [address] Dr. Jeimy Tenorio Monocytes/100 WBC (Bld) 12.2 % Critically high 1.7-12.0 [facility] Comment on above: Performed By: #### C BC #### [facility] [address] [place] [address] Dr. Jeimy Tenorio NEUT # 3.6 103/ul Normal 1.4-6.5 [facility] Comment on above: Performed By: #### C BC #### [facility] [address] [place] [address] Dr. Jeimy Tenorio Neutrophils/100 WBC (Bld) 55.2 % Normal 43.0-75.0 [facility] Comment on above: Performed By: #### C BC #### [facility] [address] [place] [address] Dr. Jeimy Tenorio Platelet mean volume (Bld) [Entitic vol] 9.9 fL Normal 9.5-13.5 [facility] Comment on above: Performed By: #### C BC #### [facility] [address] [place], [place] [address] Dr. Jeimy Tenorio PLT 174 103/ul Normal 150-450 [facility] Comment on above: Performed By: #### C BC #### [facility] [address] [place], [place] [address] Dr. Jeimy Tenorio RBC 3.97 106/ul Critically low 4.70-6.10 [facility] Comment on above: Performed By: #### C BC #### [facility] [address] [place], [place] [address] Dr. Jeimy Tenorio WBC 6.5 103/ul Normal 4.0-11.0 [facility] Comment on above: Performed By: #### C BC #### [facility] [address] [id number] Jeimy Tenorio CTA CHEST WO W [...] MAMIE SAID Date: 2022-06-12 00:21 Normal [facility] SARS-CoV-2 (COVID-19) RNA ALEX+probe Ql (Unsp spec) Not detected Normal NOT DETECTED [facility] Comment on above: Result Comment: When [...] for this test is supported by the Director Of Blood of Health and Human Service's declaration that [...] By: #### B MP, CMREP, LIPID #### [facility] [address] [place] [address] Dr. Jeimy Tenorio ER URINE PROFILEon 2 Bilirubin Ql (U) Negative Normal NEGATIVE [facility] Comment on above: Performed By: #### E RUR #### [facility] [address] [place] [address] Dr. Jeimy Tenorio Clarity (U) CLEAR Normal CLEAR [facility] Comment on above: Performed By: #### E RUR #### [facility] [address] [place] [address] Dr. Jeimy Tenorio Color (U) LT. YELLOW Normal YELLOW [facility] Comment on above: Performed By: #### E RUR #### [facility] [address] [place] [address] Dr. Jeimy Tenorio ERUAHD A micrscopic examination will be performed if indicated. Normal [facility] Comment on above: Performed By: #### E RUR #### [facility] [address] [place] [address] Dr. Jeimy Tenorio Glucose Ql (U) Negative Normal NEGATIVE [facility] Comment on above: Performed By: #### E RUR #### [facility] [address] [place] [address] Dr. Jeimy Tenorio Hemoglobin Ql (U) Negative Normal NEGATIVE [facility] Comment on above: Performed By: #### E RUR #### [facility] [address] [place] [address] Dr. Jeimy Tenorio Ketones Ql (U) TRACE Abnormal NEGATIVE [facility] Comment on above: Performed By: #### E RUR #### [facility] [address] [place] [address] Dr. Jeimy Tenorio LEUKOCYTES Negative Normal NEGATIVE [facility] Comment on above: Performed By: #### E RUR #### [facility] [address] [place] [address] Dr. Jeimy Tenorio Nitrite Ql (U) Negative Normal NEGATIVE [facility] Comment on above: Performed By: #### E RUR #### [facility] [address] [place] [address] Dr. Jeimy Tenorio pH (U) 5.5 [pH] Normal 5-9 [facility] Comment on above: Performed By: #### E RUR #### [facility] [address] [place] [address] Dr. Jeimy Tenorio SPEC GRAVITY 1.010 Normal 1.005-<=1.025 [facility] Comment on above: Performed By: #### E RUR #### [facility] [address] [place] [address] Dr. Jeimy Tenorio UA PROTEIN Negative Normal NEGATIVE/ TRACE [facility] Comment on above: Performed By: #### E RUR #### [facility] [address] [place] [address] Dr. Jeimy Tenorio UR MICRO IND NOT INDICATED Normal [facility] Comment on above: Performed By: #### E RUR #### [facility] [address] [address] [address] Jeiym Tenorio Urobilinogen Qn (U) 0.2 {Raphael'U}/dL Normal 0.2 - 1. 0 [facility] Comment on above: Performed By: #### E RUR #### [facility] [address] [address] [address] Jeimy Tenorio GLYCOHEMOGLOBIN A1Con 2021 ADA RECOMMENDATION SEE BELOW Normal [facility] Comment on above: Result Comment: ADA RECOMMENDED LIMIT 4.0 - 6.0 ADA THERAPEUTIC TARGET < 7.0 ACTION SUGGESTED > 7.0 Performed By: #### C BC #### [facility] [address] [place] [address] Dr. Jeimy Tenorio Glucose [Mass/Vol] 103 mg/dL Normal [facility] Comment on above: Performed By: #### C BC #### [facility] [address] [place] [address] Dr. Jeimy Tenorio HbA1c (Bld) [Mass fraction] 5.2 % Normal 4.5-6.2 [facility] Comment on above: Performed By: #### C BC #### [facility] [address] [place] [address] Dr. Jeimy Tenorio LIPID PROFILEon 06-12-2022 CHOL-HDL RATIO NORM SEE BELOW Normal [facility] Comment on above: Result Comment: 3.3 - 4.4 LOW RISK 4.4 - 7.1 AVERAGE RISK 7.1 - 11.0 MODERATE RISK >11.0 HIGH RISK Performed By: #### B MP, CMREP, LIPID #### [facility] [address] [place] [address] Dr. Jeimy Tenorio Cholesterol [Mass/Vol] 142 mg/dL Normal <=200 [facility] Comment on above: Performed By: #### B MP, CMREP, LIPID #### [facility] [address] [place] [address] Dr. Jeimy Tenorio Cholesterol in HDL [Mass/Vol] 49 mg/dL Normal 40-60 [facility] Comment on above: Performed By: #### B MP, CMREP, LIPID #### [facility] [address] [address] [address] Jeimy Tenorio Cholesterol in LDL [Mass/Vol] 64.6 mg/dL Normal [facility] Comment on above: Performed By: #### B MP, CMREP, LIPID #### [facility] [address] [address] [address] Jeimy Tenorio Cholesterol.total/Ch olesterol in HDL [Mass ratio] 2.9 {ratio} Normal [facility] Comment on above: Performed By: #### B MP, CMREP, LIPID #### [facility] [address] [address] [address] Jeimy Tenorio HDL NORMAL > or = 60 mg/dl - LO W CARDIOVASCULAR RISK <40 mg/dl - HIGH CARDIOVASCULAR RISK Normal [facility] Comment on above: Performed By: #### B MP, CMREP, LIPID #### [facility] [address] [place] [address] Dr. Jeimy Tenorio LDL CALC NORMAL SEE BELOW Normal [facility] Comment on above: Result Comment: <100 mg/dl OPTIMAL 100 - 129 mg/dl NEAR OR ABOVE OPTIMAL 130 - 159 mg/dl BORDERLINE HIGH 160 - 189 mg/dl HIGH >190 mg/dl VERY HIGH Performed By: #### B MP, CMREP, LIPID #### [facility] [address] [place] [address] Dr. Jeimy Tenorio Triglyceride [Mass/Vol] 142 mg/dL Normal <=150 [facility] Comment on above: Performed By: #### B MP, CMREP, LIPID #### [facility] [address] [address] [address] Jeimy Tenorio VLDL CALC 28.4 mg/dL Normal [facility] Comment on above: Performed By: #### B MP, CMREP, LIPID #### [facility] [address] [place] [address] Dr. Jeimy Tenorio PROF CHEM 8 (BAS METB)on Anion gap [Moles/Vol] 10.1 mmol/L Normal [facility] Comment on above: Performed By: #### B MP, CMREP, LIPID #### [facility] [address] [address] [address] Jeimy Tenorio Calcium [Mass/Vol] 8.0 mg/dL Critically low 8.5-10.1 [facility] Comment on above: Performed By: #### B MP, CMREP, LIPID #### [facility] [address] [address] [address] Jeimy Tenorio Chloride [Moles/Vol] 104 mmol/L Normal 98-107 [facility] Comment on above: Performed By: #### B MP, CMREP, LIPID #### [facility] [address] [address] [address] Jeimy Tenorio CO2 [Moles/Vol] 27.0 mmol/L Normal 21.0-32.0 [facility] Comment on above: Performed By: #### B MP, CMREP, LIPID #### [facility] [address] [place] [address] Dr. Jeimy Tenorio Creatinine [Mass/Vol] 0.79 mg/dL Normal 0.70-1.30 [facility] Comment on above: Performed By: #### B MP, CMREP, LIPID #### [facility] [address] [place] [address] Dr. Jeimy Tenorio EGFR-AF MEXICAN >60 Normal >=60 [facility] Comment on above: Performed By: #### B MP, CMREP, LIPID #### [facility] [address] [place] [address] Dr. Jeimy Tenorio EGFR-NON AF MEXICAN >60 Normal >=60 [facility] Comment on above: Performed By: #### B MP, CMREP, LIPID #### [facility] [address] [place] [address] Dr. Jeimy Tenorio Glucose [Mass/Vol] 101 mg/dL Normal 74-106 [facility] Comment on above: Performed By: #### B MP, CMREP, LIPID #### [facility] [address] [place] [address] Dr. Jeimy Tenorio Potassium [Moles/Vol] 4.1 mmol/L Normal 3.5-5.1 [facility] Comment on above: Performed By: #### B MP, CMREP, LIPID #### [facility] [address] [place] [address] Dr. Jeimy Tenorio Sodium [Moles/Vol] 137 mmol/L Normal 136-145 [facility] Comment on above: Performed By: #### B MP, CMREP, LIPID #### [facility] [address] [place] [address] Dr. Jeimy Tenorio Urea nitrogen [Mass/Vol] 15.0 mg/dL Normal 7.0-18.0 [facility] Comment on above: Performed By: #### B MP, CMREP, LIPID #### [facility] [address] [place] [address] Dr. Jeimy Tenorio Urea nitrogen/Creatinine [Mass ratio] 19.0 mg/mg Normal [facility] Comment on above: Performed By: #### B MP, CMREP, LIPID #### [facility] [address] [place] [address] Dr. Jeimy Tenorio CARDIAC SAWYER ADMITon 022 CK [Catalytic activity/Vol] 50 U/L Normal 39-308 [facility] Comment on above: Performed By: #### C BC #### [facility] [address] [place] [address] Dr. Jeimy Tenorio CK.MB [Mass/Vol] 0.80 ng/mL Normal <=3.60 [facility] Comment on above: Performed By: #### C BC #### [facility] [address] [place] [address] Dr. Jeimy Tenorio HSTROP 5.2 pg/mL Normal 4.0-76.1 [facility] Comment on above: Result Comment: CUT- OFF POINTS HAVE BEEN ESTABLISHED BASED ON THE FOURTH UNIVERSAL DEFINITIONS OF MYOCARDIAL INFARCTION. THE UPPER REFERENCE LIMIT (URL) OF TROPONIN, DEFINED THE 99TH PERCENTILE OF cTnI DISTRIBUTION IN A REFERENCE POPULATION, HAS BEEN CONFIRMED THE DECISION THRESHOLD FOR DC DIAGNOSIS. Performed By: #### C BC #### [facility] [address] [place] [address] Dr. Jeimy Tenorio MAGALIE 41 ng/mL Normal 16-96 [facility] Comment on above: Performed By: #### C BC #### [facility] [address] [place] [address] Dr. Jeimy Tenorio CBC AUTO DIFFon 06-11-2022 BASO # 0.0 103/ul Normal 0.0-0.1 [facility] Comment on above: Performed By: #### C BC #### [facility] [address] [place] [address] Dr. Jeimy Tenorio Basophils/100 WBC (Bld) 0.6 % Normal 0.2-2.0 [facility] Comment on above: Performed By: #### C BC #### [facility] [address] [place] [address] Dr. Jeimy Tenorio EO # 0.4 103/ul Normal 0.0-0.7 [facility] Comment on above: Performed By: #### C BC #### [facility] [address] [place] [address] Dr. Jeimy Tenorio Eosinophils/100 WBC (Bld) 4.9 % Normal 0.9-7.0 [facility] Comment on above: Performed By: #### C BC #### [facility] [address] [place] [address] Dr. Jeimy Tenorio Erythrocyte distribution width (RBC) [Ratio] 13.1 % Normal 11.0-15.0 [facility] Comment on above: Performed By: #### C BC #### [facility] [address] [place] [address] Dr. Jeimy Tenorio Hematocrit (Bld) [Volume fraction] 38.1 % Critically low 42.0-54.0 [facility] Comment on above: Performed By: #### C BC #### [facility] [address] [place] [address] Dr. Jeimy Tenorio Hemoglobin (Bld) [Mass/Vol] 13.0 g/dL Critically low 14.0-18.0 [facility] Comment on above: Performed By: #### C BC #### [facility] [address] [place] [address] Dr. Jemiy Tenorio IG # 0.02 10e3/ul Normal 0.00-0.03 [facility] Comment on above: Performed By: #### C BC #### [facility] [address] [place] [address] Dr. Jeimy Tenorio IG % 0.3 % Normal 0.0-0.5 [facility] Comment on above: Performed By: #### C BC #### [facility] [address] [place] [address] Dr. Jeimy Tenorio LYMPH # 1.7 103/ul Normal 1.2-3.8 [facility] Comment on above: Performed By: #### C BC #### [facility] [address] [place] [address] Dr. Jeimy Tenorio Lymphocytes/100 WBC (Bld) 22.9 % Normal 20.5-60.0 [facility] Comment on above: Performed By: #### C BC #### [facility] [address] [place] [address] Dr. Jeimy Tenorio MANUAL DIFF REQ NO Normal [facility] Comment on above: Performed By: #### C BC #### [facility] [address] [place] [address] Dr. Jeimy Tenorio MCH (RBC) [Entitic mass] 33.5 pg Normal 25.9-34.0 [facility] Comment on above: Performed By: #### C BC #### [facility] [address] [place] [address] Dr. Jeimy Tenorio MCHC (RBC) [Mass/Vol] 34.1 g/dL Normal 29.9-35.2 [facility] Comment on above: Performed By: #### C BC #### [facility] [address] [place] [address] Dr. Jeimy Tenorio MCV (RBC) [Entitic vol] 98.2 fL Critically high 80.0-94.0 [facility] Comment on above: Performed By: #### C BC #### [facility] [address] [place] [address] Dr. Jeimy Tenorio MONO # 0.8 103/ul Normal 0.3-0.8 [facility] Comment on above: Performed By: #### C BC #### [facility] [address] [address] [address] Jeimy Tenorio Monocytes/100 WBC (Bld) 11.5 % Normal 1.7-12.0 [facility] Comment on above: Performed By: #### C BC #### [facility] [address] [address] [address] Jeimy Tenorio NEUT # 4.3 103/ul Normal 1.4-6.5 [facility] Comment on above: Performed By: #### C BC #### [facility] [address] [address] [address] Jeimy Tenorio Neutrophils/100 WBC (Bld) 59.8 % Normal 43.0-75.0 [facility] Comment on above: Performed By: #### C BC #### [facility] [address] [place] [address] Dr. Jeimy Tenorio Platelet mean volume (Bld) [Entitic vol] 9.8 fL Normal 9.5-13.5 [facility] Comment on above: Performed By: #### C BC #### [facility] [address] [place] [address] Dr. Jeimy Tenorio PLT 181 103/ul Normal 150-450 [facility] Comment on above: Performed By: #### C BC #### [facility] [address] [place] [address] Dr. Jeimy Tenorio RBC 3.88 106/ul Critically low 4.70-6.10 [facility] Comment on above: Performed By: #### C BC #### [facility] [address] [place] [address] Dr. Jeimy Tenorio WBC 7.2 103/ul Normal 4.0-11.0 [facility] Comment on above: Performed By: #### C BC #### [facility] [address] [place] [address] Dr. Jeimy Tenorio D-DIMERon 06-11-2022 D-DIMER 0.63 mg/L FEU Critically high <=0.59 [facility] Comment on above: Performed By: #### D DIM #### [facility] [address] [place] [address] Dr. Jeimy Tenorio D-DIMER COMMENTS SEE BELOW Normal [facility] Comment on above: Result Comment: Incr eases [...] hospitalization. Performed By: #### D DIM #### [facility] [address] [place] [address] Dr. Jeimy Tenorio PROF 14(COMP METB)on 022 Albumin [Mass/Vol] 3.3 g/dL Critically low 3.4-5.0 Th [facility] Comment on above: Performed By: #### C BC #### [facility] [address] [place] [address] Dr. Jeimy Tenorio Albumin/Globulin [Mass ratio] 0.8 {ratio} Normal [facility] Comment on above: Performed By: #### C BC #### [facility] [address] [place] [address] Dr. Jeimy Tenorio ALP [Catalytic activity/Vol] 160 U/L Critically high 46-116 [facility] Comment on above: Performed By: #### C BC #### [facility] [address] [place] [address] Dr. Jeimy Tenorio ALT [Catalytic activity/Vol] 26 U/L Normal 16-63 [facility] Comment on above: Performed By: #### C BC #### [facility] [address] [place] [address] Dr. Jeimy Tenorio Anion gap [Moles/Vol] 10.4 mmol/L Normal [facility] Comment on above: Performed By: #### C BC #### [facility] [address] [place] [address] Dr. Jeimy Tenorio AST [Catalytic activity/Vol] 16 U/L Normal 15-37 [facility] Comment on above: Performed By: #### C BC #### [facility] [address] [address] [address] Jeimy Tenorio Bilirubin [Mass/Vol] 0.2 mg/dL Normal 0.2-1.0 [facility] Comment on above: Performed By: #### C BC #### [facility] [address] [address] [address] Jeimy Tenorio Calcium [Mass/Vol] 8.2 mg/dL Critically low 8.5-10.1 Th e [facility] Comment on above: Performed By: #### C BC #### [facility] [address] [address] [address] Jeimy Tenorio Chloride [Moles/Vol] 105 mmol/L Normal 98-107 [facility] Comment on above: Performed By: #### C BC #### [facility] [address] [address] [address] Jeimy Tenorio CO2 [Moles/Vol] 26.5 mmol/L Normal 21.0-32.0 [facility] Comment on above: Performed By: #### C BC #### [facility] [address] [place] [address] Dr. Jeimy Tenorio Creatinine [Mass/Vol] 0.96 mg/dL Normal 0.70-1.30 [facility] Comment on above: Performed By: #### C BC #### [facility] [address] [place] [address] Dr. Jeimy Tenorio EGFR-AF MEXICAN >60 Normal >=60 [facility] Comment on above: Performed By: #### C BC #### [facility] [address] [place] [address] Dr. Jeimy Tenorio EGFR-NON AF MEXICAN >60 Normal >=60 [facility] Comment on above: Performed By: #### C BC #### [facility] [address] [place] [address] Dr. Jeimy Tenorio Globulin (S) [Mass/Vol] 4.0 g/dL Normal [facility] Comment on above: Performed By: #### C BC #### [facility] [address] [address] [address] Jeimy Tenorio Glucose [Mass/Vol] 140 mg/dL Critically high 74-106 T [facility] Comment on above: Performed By: #### C BC #### [facility] [address] [address] [address] Jeimy Tenorio Potassium [Moles/Vol] 3.9 mmol/L Normal 3.5-5.1 [facility] Comment on above: Performed By: #### C BC #### [facility] [address] [address] [address] Jeimy Tenorio Protein [Mass/Vol] 7.3 g/dL Normal 6.4-8.2 [facility] Comment on above: Performed By: #### C BC #### [facility] [address] [address] [address] Jeimy Tenorio Sodium [Moles/Vol] 138 mmol/L Normal 136-145 [facility] Comment on above: Performed By: #### C BC #### [facility] [address] [address] [address] Jeimy Tenorio Urea nitrogen [Mass/Vol] 15.0 mg/dL Normal 7.0-18.0 [facility] Comment on above: Performed By: #### C BC #### [facility] [address] [address] [address] Jeimy Tenorio Urea nitrogen/Creatinine [Mass ratio] 15.6 mg/mg Normal [facility] Comment on above: Performed By: #### C BC #### [facility] [address] [address] [address] Jeimy Tenorio COMPREHENSIVE METABOLIC PANE Braxton 10-30-2021 Albumin [Mass/Vol] 4.3 g/dL Normal 3.6-5.1 [facility] Comment on above: Performed By: #### 7 02, 2487, 80076 #### [facility] [address], [address] [place] [id number] Bankman: Yash Campuzano MD Albumin/Globulin [Mass ratio] 1.3 {ratio} Normal 1.0-2.5 [facility] Comment on above: Performed By: #### 7 13, 0, 45657 #### [facility] of [address] [address] Bankman: Yash Campuzano MD ALP [Catalytic activity/Vol] 152 U/L High 35-144 [facility] Comment on above: Performed By: #### 7 13, 7599, 74490 #### [facility] of [address], [address] [place] [address] Bankman: Yash Campuzano MD ALT [Catalytic activity/Vol] 30 U/L Normal 9-46 [facility] Comment on above: Performed By: #### 7 13, 7599, 69416 #### [facility] [address] [address] Bankman: Yash Campuzano MD AST [Catalytic activity/Vol] 26 U/L Normal 10-35 [facility] Comment on above: Performed By: #### 7 13, 7599, 52257 #### [facility] [address] [address] Bankman: Yash Campuzano MD Bilirubin [Mass/Vol] 0.4 mg/dL Normal 0.2-1.2 [facility] Comment on above: Performed By: #### 7 13, 7599, 60329 #### [facility] [address] [place] [address] Bankman: Yash Campuzano MD BUN/CREATININE RATIO NOT APPLICABLE Normal 6-22 [facility] Comment on above: Performed By: #### 7 13, 7599, 32001 #### [facility] [address] [place] [address] Bankman: Yash Campuzano MD Calcium [Mass/Vol] 8.8 mg/dL Normal 8.6-10.3 [facility] Comment on above: Performed By: #### 7 13, 7599, 02191 #### [facility] of [address], [address] [place] [address] Bankman: Yash Campuzano MD Chloride [Moles/Vol] 104 mmol/L Normal 98-110 [facility] Comment on above: Performed By: #### 7 13, 7600, 41204 #### [facility] of [address], [address] [place] [address] Bankman: Yash Campuzano MD CO2 [Moles/Vol] 25 mmol/L Normal 20-32 [facility] Comment on above: Performed By: #### 7 13, 7599, 96975 #### [facility] of [address], [address] [place] [address] Bankman: Yash Campuzano MD Creatinine [Mass/Vol] 0.76 mg/dL Normal 0.70-1.25 [facility] Comment on above: Result Comment: For patients >49 years of age, the reference limit for Creatinine is approximately 13% higher for people identified as -Andorran. Performed By: #### 7 , 7599, 93876 #### [facility] [address], [address] [place] [address] Bankman: Yash Campuzano MD eGFR NON-AFR. MEXICAN 95 mL/min/1.73m2 Normal > OR = 60 [facility] Comment on above: Performed By: #### 7 13, 7599, 22910 #### [facility] of [address], [address] [place] [address] Bankman: Yash Campuzano MD GFR/1.73 sq M.predicted among blacks MDRD (S/P/Bld) [Vol rate/Area] 110 mL/min/{1.73_m2} Normal > OR = 60 [facility] Comment on above: Performed By: #### 7 13, 7599, 43367 #### [facility] of [address], [address] [place] [address] Bankman: Yash Campuzano MD Globulin (S) [Mass/Vol] 3.2 g/dL Normal 1.9-3.7 [facility] Comment on above: Performed By: #### 7 , 7599, 93755 #### [facility] [address] [place] [address] Bankman: Yash Campuzano MD Glucose [Mass/Vol] 103 mg/dL High 65-99 [facility] Comment on above: Result Comment: Fasting reference interval For someone without known diabetes, a glucose value between 100 and 125 mg/dL is consistent with prediabetes and should be confirmed with a follow-up test. Performed By: #### 7 13, 7599, 73929 #### [facility] [place] [address] Bankman: Yash Campuzano MD Potassium [Moles/Vol] 4.7 mmol/L Normal 3.5-5.3 [facility] Comment on above: Performed By: #### 7 , 7599, 31298 #### [facility] [place] [address] Bankman: Yash Campuzano MD Protein [Mass/Vol] 7.5 g/dL Normal 6.1-8.1 [facility] Comment on above: Performed By: #### 7 13, 7599, 79051 #### [facility] [place] [address] Bankman: Yash Campuzano MD Sodium [Moles/Vol] 137 mmol/L Normal 135-146 [facility] Comment on above: Performed By: #### 7 , 7599, 71217 #### [facility] [place] [address] Bankman: Yash Campuzano MD Urea nitrogen [Mass/Vol] 15 mg/dL Normal 7-25 [facility] Comment on above: Performed By: #### 7 , 7599, 03350 #### [facility] [place] [address] Bankman: Yash Campuzano MD LIPID PANEL, [facility] 12 0 Cholesterol [Mass/Vol] 180 mg/dL Normal <200 [facility] Comment on above: Order Comment: FASTI NG:YES FASTING: YES Performed By: #### 7 13, 7600, 32484 #### [facility] [address], [address] [place] [address] Bankman: Yash Campuzano MD Cholesterol in HDL [Mass/Vol] 50 mg/dL Normal > OR = 40 [facility] Comment on above: Order Comment: FASTI NG:YES FASTING: YES Performed By: #### 7 , 7600, 00625 #### [facility] [address], [address] [place] [address] Bankman: Yash Campuzano MD Cholesterol in LDL [Mass/Vol] [...] of LDL-C. Gennaro SS et al. KO. 2013;310(19): 9496-7149 ([email or web address]) Performed By: #### 7 , 9320, 70809 #### [facility] [address], [address] [place] [address] Bankman: Yash Campuzano MD Cholesterol.total/Ch olesterol in HDL [Mass ratio] 3.6 {ratio} Normal <5.0 [facility] Comment on above: Order Comment: FASTI NG:YES FASTING: YES Performed By: #### 7 , 3590, 97153 #### [facility] [address], [address] [place] [address] Bankman: Yash Campuzano MD NON HDL CHOLESTEROL 130 mg/dL (calc) High <130 [facility] Comment on above: Order Comment: FASTI NG:YES FASTING: YES Result Comment: For patients with diabetes plus 1 major ASCVD risk factor, treating to a non-HDL-C goal of <100 mg/dL (LDL-C of <70 mg/dL) is considered a therapeutic option. Performed By: #### 7 13, 0, 08687 #### [facility] [place] [address] Bankman: Yash Campuzano MD Triglyceride [Mass/Vol] 280 mg/dL High <150 [facility] Comment on above: Order Comment: FASTI NG:YES FASTING: YES Result Comment: If a non-fasting specimen was collected, consider repeat triglyceride testing on a fasting specimen if clinically indicated. Marquise et al. J. of Clin. Lipidol. 2015;9:129-169. Performed By: #### 7 13, 7599, 96000 #### [facility] [place] [address] Bankman: Yash Campuzano MD PHENYTOINon 10-30-2021 Phenytoin [Mass/Vol] 18.9 ug/mL Normal 10.0-20.0 [facility] Comment on above: Performed By: #### 7 , 7599, 71665 #### [facility] [place] [address] Bankman: Yash Campuzano MD CBC (INCLUDES DIFF/PLT)on Basophils (Bld) [#/Vol] 0.071 10*3/uL Normal 0-200 [facility] Comment on above: Performed By: #### 7 , 955, 4099 #### [facility] [place] [address] Bankman: Yash Campuzano MD Basophils/100 WBC (Bld) 1.2 % Normal [facility] Comment on above: Performed By: #### 7 , 634, 7152 #### [facility] [place] [address] Bankman: Yash Campuzano MD Eosinophils (Bld) [#/Vol] 0.277 10*3/uL Normal 15-500 [facility] Comment on above: Performed By: #### 7 13, 7599, 6399 #### [facility] of [address], [address] [place] [address] Bankman: Yash Campuzano MD Eosinophils/100 WBC (Bld) 4.7 % Normal [facility] Comment on above: Performed By: #### 7 , 7599, 6399 #### [facility] of [place] [address] Bankman: Yash Campuzano MD Erythrocyte distribution width (RBC) [Ratio] 12.8 % Normal 11.0-15.0 [facility] Comment on above: Performed By: #### 7 , 7599, 6399 #### [facility] of [place] [address] Bankman: Yash Campuzano MD Hematocrit (Bld) [Volume fraction] 42.1 % Normal 38.5-50.0 [facility] Comment on above: Performed By: #### 7 , 7599, 6399 #### [facility] of [place] [address] Bankman: Yash Campuzano MD Hemoglobin (Bld) [Mass/Vol] 14.9 g/dL Normal 13.2-17.1 [facility] Comment on above: Performed By: #### 7 , 7599, 6399 #### [facility] of [place] [address] Bankman: Yash Campuzano MD Lymphocytes (Bld) [#/Vol] 1.068 10*3/uL Normal 850-3900 [facility] Comment on above: Performed By: #### 7 , 7599, 6399 #### [facility] of [place] [address] Bankman: Yash Campuzano MD Lymphocytes/100 WBC (Bld) 18.1 % Normal [facility] Comment on above: Performed By: #### 7 , 7599, 6399 #### [facility] of [address] [address] Bankman: Yash Campuzano MD MCH (RBC) [Entitic mass] 32.9 pg Normal 27.0-33.0 [facility] Comment on above: Performed By: #### 7 13, 7599, 6399 #### [facility] of [place] [address] Bankman: Yash Campuzano MD MCHC (RBC) [Mass/Vol] 35.4 g/dL Normal 32.0-36.0 [facility] Comment on above: Performed By: #### 7 13, 7599, 6399 #### [facility] of [place] [address] Bankman: Yash Campuzano MD MCV (RBC) [Entitic vol] 92.9 fL Normal 80.0-100.0 [facility] Comment on above: Performed By: #### 7 , 7599, 6399 #### [facility] of [place] [address] Bankman: Yash Campuzano MD Monocytes (Bld) [#/Vol] 0.531 10*3/uL Normal 200-950 [facility] Comment on above: Performed By: #### 7 , 7599, 6399 #### [facility] of [place] [address] Bankman: Yash Campuzano MD Monocytes/100 WBC (Bld) 9.0 % Normal [facility] Comment on above: Performed By: #### 7 13, 7599, 6399 #### [facility] of [place] [address] Bankman: Yash Campuzano MD Neutrophils (Bld) [#/Vol] 3.953 10*3/uL Normal 3586-6085 [facility] Comment on above: Performed By: #### 7 , 7599, 6399 #### [facility] of [place] [address] Bankman: Yash Campuzano MD Neutrophils/100 WBC (Bld) 67 % Normal [facility] Comment on above: Performed By: #### 7 13, 7599, 6399 #### [facility] of [place] [address] Bankman: Yahs Campuzano MD Platelet mean volume (Bld) [Entitic vol] 11.0 fL Normal 7.5-12.5 [facility] Comment on above: Performed By: #### 7 13, 7599, 6399 #### [facility] of [address], [address] [place] [address] Bankman: Yash Campuzano MD Platelets (Bld) [#/Vol] 200 10*3/uL Normal 140-400 [facility] Comment on above: Performed By: #### 7 13, 7599, 6399 #### [facility] of [address], [address] [place] [address] Bankman: Yash Campuzano MD RBC (Bld) [#/Vol] 4.53 10*6/uL Normal 4.20-5.80 [facility] Comment on above: Performed By: #### 7 13, 7599, 6399 #### [facility] of [place] [address] Bankman: Yash Campuzano MD WBC (Bld) [#/Vol] 5.9 10*3/uL Normal 3.8-10.8 [facility] Comment on above: Performed By: #### 7 13, 7599, 6399 #### [facility] of [place] [address] Bankman: Yash Campuzano MD LIPID PANEL, [facility] 05 Cholesterol [Mass/Vol] 218 mg/dL High <200 [facility] Comment on above: Order Comment: FASTI NG:YES FASTING: YES Performed By: #### 7 13, 760, 6399 #### [facility] of [place] [address] Bankman: Yash Campuzano MD Cholesterol in HDL [Mass/Vol] 55 mg/dL Normal > OR = 40 [facility] Comment on above: Order Comment: FASTI NG:YES FASTING: YES Performed By: #### 7 , 4105, 3688 #### [facility] [address], [address] [place] [address] Bankman: Yash Campuzano MD Cholesterol in LDL [Mass/Vol] [...] LDL-C. Gennaro ALMANZAR et al. KO. 2013;310(19): 3222-2861 ([email or web address]/[email or web address]) Performed By: #### 7 , 240, 5204 #### [facility] [address], [address] [place] [address] Bankman: Yash Campuzano MD Cholesterol.total/Ch olesterol in HDL [Mass ratio] 4.0 {ratio} Normal <5.0 [facility] Comment on above: Order Comment: FASTI NG:YES FASTING: YES Performed By: #### 7 , 6689, 8734 #### [facility] [address], [address] [place] [address] Bankman: Yash Campuzano MD NON HDL CHOLESTEROL 163 mg/dL (calc) High <130 [facility] Comment on above: Order Comment: FASTI NG:YES FASTING: YES Result Comment: For patients with diabetes plus 1 major ASCVD risk factor, treating to a non-HDL-C goal of <100 mg/dL (LDL-C of <70 mg/dL) is considered a therapeutic option. Performed By: #### 7 , 502, 6638 #### [facility] [address], [address] [place] [address] Bankman: Yash Campuzano MD Triglyceride [Mass/Vol] 200 mg/dL High <150 [facility] Comment on above: Order Comment: FASTI NG:YES FASTING: YES Result Comment: If a non-fasting specimen was collected, consider repeat triglyceride testing on a fasting specimen if clinically indicated. Marquise et al. J. of Clin. Lipidol. 2015;9:129-169. Performed By: #### 7 13, 5320, 6399 #### [facility] [address], [address] [place] [address] Bankman: Yash Campuzano MD PHENYTOINon 04-18-2021 Phenytoin [Mass/Vol] 25.0 ug/mL High 10.0-20.0 [facility] Comment on above: Performed By: #### 7 13, 7600, 6399 #### [facility] [address], [address] [place] [address] Bankman: Yash Campuzano MD APTTon 11-20-2020 aPTT Coag (Bld) [Time] 33.4 s Normal 25.0-35.0 The [facility] Comment on above: Result Comment: ALL [...] THIS PURPOSE. Performed By: #### 5 6101, 44145 ####[facility] [facility] [place] [address], [facility] BNP EDon 11-20-2020 Natriuretic peptide B (Bld) [Mass/Vol] 111 pg/mL High 0-100 The [facility] Comment on above: Result Comment: Give n the appropriate clinical setting a BNP result of >100 pg/mL indicates congestive heart failure. Performed By: #### 3 0935 #### [facility] [address] [place] [address], [facility] CBC W/DIFFon 11-20-2020 ABS IMM GRANS 0.0 10*3/uL Normal 0.0-0.2 The [facility] Comment on above: Performed By: #### 5 0103 ####[facility] [place] [address], [facility] ABS NEUTROPHILS 3.9 10*3/uL Normal 1.6-7.[address] [facility] Comment on above: Performed By: #### 5 0103 ####[facility] [place] [address], [facility] Basophils (Bld) [#/Vol] 0.1 10*3/uL Normal 0.0-0.2 The [facility] Comment on above: Performed By: #### 5 0103 ####[facility] [place] [address], [facility] Basophils/100 WBC (Bld) 1.0 % Normal 0.0-1.0 The [facility] Comment on above: Performed By: #### 5 0103 ####[facility] [facility] [place] [address], [facility] Eosinophils (Bld) [#/Vol] 0.3 10*3/uL Normal 0.0-0.5 The [facility] Comment on above: Performed By: #### 5 0103 ####[facility] [facility] [place] [address], [facility] Eosinophils/100 WBC (Bld) 5.1 % Normal 0.0-6.0 The [facility] Comment on above: Performed By: #### 5 0103 ####[facility] [facility] [place] [address], [facility] Erythrocyte distribution width (RBC) [Ratio] 13.1 % Normal 11.5-15.0 The [facility] Comment on above: Performed By: #### 5 0103 ####[facility] Hematocrit (Bld) [Volume fraction] 45.4 % Normal 39.0-50.0 The [facility] Comment on above: Performed By: #### 5 0103 ####[facility] Hemoglobin (Bld) [Mass/Vol] 14.8 g/dL Normal 13.0-17.0 The [facility] Comment on above: Performed By: #### 5 0103 ####[facility] IMMATURE GRANS 0.3 % Normal 0.0-1.0 The [facility] Comment on above: Performed By: #### 5 3 ####[address] Lymphocytes (Bld) [#/Vol] 1.0 10*3/uL Low 1.2-4.0 The [facility] Comment on above: Performed By: #### 5 3 ####[place] [address] Lymphocytes/100 WBC (Bld) 17.5 % Low 20.0-45.0 The [facility] Comment on above: Performed By: #### 5 3 ####[place] [address] MCH (RBC) [Entitic mass] 32.5 pg Normal 27.0-33.0 The [facility] Comment on above: Performed By: #### 5 3 ####[address] MCHC (RBC) [Mass/Vol] 32.6 g/dL Normal 32.0-35.0 The [facility] Comment on above: Performed By: #### 5 3 ####[address] [place] [address], [facility] MCV (RBC) [Entitic vol] 99.6 fL High 82.0-98.0 The [facility] Comment on above: Performed By: #### 5 0103 ####[facility] [place] [address], [facility] Monocytes (Bld) [#/Vol] 0.6 10*3/uL Normal 0.1-1.0 The [facility] Comment on above: Performed By: #### 5 0103 ####[facility] [place] [address], [facility] MONOS 9.4 % Normal 5.0-12.0 The [facility] Comment on above: Performed By: #### 5 102 ####[facility] [place] [address], [facility] Neutrophils/100 WBC (Bld) 66.7 % Normal 40.0-72.0 The [facility] Comment on above: Performed By: #### 102 ####[facility] [place] [address], [facility] Nucleated RBC/100 WBC (Bld) [Ratio] 0 % Normal 0-0 The [facility] Comment on above: Performed By: #### 102 ####[facility] [place] [address], [facility] PLAT CNT 175 10*3/uL Normal 150-400 The [facility] Comment on above: Performed By: #### 3 ####[facility] [place] [address], [facility] RBC (Bld) [#/Vol] 4.56 10*6/uL Normal 4.20-5.70 [facility] Comment on above: Performed By: #### 102 ####[facility] WBC (Bld) [#/Vol] 5.88 10*3/uL Normal 4.00-10.60 [facility] Comment on above: Performed By: #### 5 0103 ####[facility] [place] [address], [facility] COMP METABOLIC PANELon 11-20 Albumin [Mass/Vol] 4.0 g/dL Normal 3.5-5.7 The [facility] Comment on above: Performed By: #### 0 0121, 18160, 95690, 63471 #### [facility] [address] [place] [address], [facility] ALKALINE PHOSPH 130 IU/L High 34-104 The [facility] Comment on above: Performed By: #### 0 0121, 63235, 92127, 61281 #### [facility] [address] [place] [address], [facility] ALT [Catalytic activity/Vol] 18 U/L Normal 7-52 The [facility] Comment on above: Performed By: #### 0 0121, 61201, 76491, 14527 #### [facility] [address] [place] [address], [facility] AST [Catalytic activity/Vol] 19 U/L Normal 13-39 The [facility] Comment on above: Performed By: #### 0 0121, 10058, 47950, 19696 #### [facility] [address] [place] [address], [facility] Bilirubin [Mass/Vol] 0.4 mg/dL Normal 0.3-1.0 The [facility] Comment on above: Performed By: #### 0 0121, 27421, 75475, 70265 #### [facility] [address] [place] [id number], [facility] Calcium [Mass/Vol] 9.0 mg/dL Normal 8.6-10.3 The [facility] Comment on above: Performed By: #### 0 0121, 13642, 48884, 21662 #### [facility] [address] [place] [address], [place] Chloride [Moles/Vol] 103 mmol/L Normal 98-107 The [facility] Comment on above: Performed By: #### 0 0121, 45143, 37072, 12659 #### [facility] [address] [place] [address], [place] CO2 [Moles/Vol] 28 mmol/L Normal 21-31 [facility] Comment on above: Performed By: #### 0 0121, 13380, 14317, 12983 #### [facility] [address] [place] [address], [place] Creatinine [Mass/Vol] 0.77 mg/dL Normal 0.70-1.30 [facility] Comment on above: Performed By: #### 0 0121, 96260, 61463, 84784 #### [facility] [address] [place] [address], [place] GFR/1.73 sq M.predicted among blacks MDRD (S/P/Bld) [Vol rate/Area] mL/min/{1.73_m2} Normal >60 The [facility] Comment on above: Performed By: #### 0 0121, 00820, 65906, 51192 #### [facility] [address] [place] [address], [place] GFR/1.73 sq M.predicted among non-blacks MDRD (S/P/Bld) [Vol rate/Area] mL/min/{1.73_m2} Normal >60 The [facility] Comment on above: Performed By: #### 0 0121, 03997, 79098, 70923 #### [facility] [address] [place] [address], [place] Glucose [Mass/Vol] 88 mg/dL Normal 70-100 [facility] Comment on above: Performed By: #### 0 0121, 67455, 20355, 55728 #### [facility] [address] [place] [address], [facility] Potassium [Moles/Vol] 4.9 mmol/L Normal 3.5-5.1 The [facility] Comment on above: Performed By: #### 0 0121, 53113, 29566, 03843 #### [facility] [address] [place] [address], [facility] Protein [Mass/Vol] 7.3 g/dL Normal 6.0-8.3 The [facility] Comment on above: Performed By: #### 0 0121, 57007, 20424, 50420 #### [facility] [address] [place] [address], [facility] Sodium [Moles/Vol] 138 mmol/L Normal 136-145 The [facility] Comment on above: Performed By: #### 0 0121, 03474, 23667, 31203 #### [facility] [address] [place] [address], [place] Urea nitrogen [Mass/Vol] 15 mg/dL Normal 7-25 The [facility] Comment on above: Performed By: #### 0 0121, 05198, 55464, 82447 #### [facility] [address] [place] [address], [facility] CTA HEADon 11-20-2020 CTA HEAD [facility] Department of Radiology [address] [place] [id number] Patient Name: NAZARIO CORTES : 1955 Sex: M Age: Race: White Pt. Location: [facility] Patient Status: E Ordered Date: 11/20/2020 [...] stenosis of the major vessels of the [place] [facility] [place]. origin of bilateral posterior cerebral arteries. IMPRESSION: Normal CTA of the brain. All CT scans at this facility use dose modulation, iterative reconstruction, and/or weight based dosing when appropriate to reduce radiation dose to as low as reasonably achievable. Electronically signed: Dhaval Bain. Transcribed by: [email or web address], User Resident: Electronically Signed by: DHAVAL BAIN @ 11/20/2020 12:58 PM Normal The [facility] Comment on above: Order Comment: Bleed CTA NECKon 11-20-2020 CTA NECK [facility] Department of Radiology [address] [place] [id number] Patient Name: NAZARIO CORTES : 1955 Sex: M Age: Race: White Pt. Location: [facility] Patient Status: E Ordered Date: 11/20/2020 11:20:00 [...] viewed on a separate workstation. The [place] Symptomatic Carotid Endarterectomy Trial (NASCET) method for [...] achievable Electronically signed: Dhaval Bain. Transcribed by: [email or web address], User Resident: Electronically Signed by: DHAVAL BAIN @ 11/20/2020 12:57 PM Normal The [facility] DIRECT BILIon 12-31-2020 Bilirubin.direct [Mass/Vol] 0.1 mg/dL Normal 0.0-0.2 The [facility] Comment on above: Order Comment: Liver Battery conflicts with Comprehensive Metabolic Panel. Liver Battery canceled and Direct Bilirubin added. Performed By: #### 0 0121, 82436, 96365, 85464 #### [facility] [address] [facility] [place], [place] [id number] [place] [address] LIPASE BLOODon 11-20-2020 LIPASE 27 Units/L Normal 11-82 The [facility] Comment on above: Performed By: #### 0 0121, 10469, 41840, 43482 #### [facility] [address] [facility]. [place], [place] [id number] [place] [address] POC SARS COV2 ANTIGEN NEGATI VEon 11-20-2020 POC SARS COV2 ANTIGEN N Negative Normal NEGATIVE The [facility] Comment on above: Result Comment: Test performed on [employer] System for rapid detection of SARS-CoV-2. Negative [...] management. Performed By: #### 3 1919 #### [facility] [address] [facility]. [place], [place] [id number] [place] [address] PORTABLE CHEST 1 VIEWon 10-23 PORTABLE CHEST 1 VIEW [facility] Department of Radiology [address] [place] [id number] Patient Name: NAZARIO CORTES : 1955 Sex: M Age: Race: White Pt. Location: [facility] Patient Status: E Ordered Date: 11/20/2020 [...] reports Electronically signed: Dhaval Bain. Transcribed by: [email or web address], User Resident: JESSENIA ALFORD Electronically Signed by: DHAVAL BAIN @ 11/20/2020 12:32 PM I personally read this/these film(s) with this resident Normal The [facility] Comment on above: Order Comment: evalu ate for Pneumonia PROTHROMBIN TIMEon 0 INR Coag (PPP) [Relative time] 0.95 {INR} Normal 0.91-1.16 The [facility] Comment on above: Result Comment: ACCC [...] CHEST 1995;108:231S-246S. Performed By: #### 5 6101, 40362 ####[facility] PT Coag (PPP) [Time] 12.7 s Normal 12.3-14.8 [facility] Comment on above: Result Comment: ALL RESULTS MUST BE INTERPRETED WITH RESPECT TO BLOOD DRAWING ARTIFACT OR DILUTION ERROR OF ANTICOAGULANT AT THE TIME OF SAMPLING. Performed By: #### 5 6101, 46736 ####[facility] [place] [address], [facility] TROPONIN-Ion 11-20-2020 Troponin I.cardiac [Mass/Vol] 0.00 ng/mL Normal 0.00-0.04 The [facility] Comment on above: Result Comment: REFE RENCE RANGES: 0.00 - 0.14 ng/ml NEGATIVE 0.15 - 0.25 ng/ml INDETERMINATE > 0.25 ng/ml INDICATIVE OF AN M.I. Performed By: #### 0 0121, 24951, 79658, 01767 #### [facility] [address] [place] [address], [facility] Troponin I.cardiac [Mass/Vol] 0.00 ng/mL Normal 0.00-0.04 The [facility] Comment on above: Order Comment: No: D o not add to previous draw Result Comment: REFE RENCE RANGES: 0.00 - 0.14 ng/ml NEGATIVE 0.15 - 0.25 ng/ml INDETERMINATE > 0.25 ng/ml INDICATIVE OF AN M.I. Performed By: #### 3 5200 #### [facility] [address] Social History Date Type Detail Facility Start: 01-01-2021 End: 08-16-2022 Sex Assigned At [facility] Start: 08-16-2022 Alcohol intake Ex-drinker (finding) [facility] Start: 01-29-2020 Tobacco smoking stat us MOIS Ex-smoker [facility] Start: 01-29-2020 End: 01-01-2021 Cigarettes smoked current (pack per day) - Reported 3 [facility] Start: 01-29-2020 Tobacco use and exposure Smokeless tobacco non-user [facility] Start: 1955 Sex Assigned At Male F [facility] Start: 1955 Sex Assigned At Not on file [facility] Tobacco smoking status No Smokin g Status Entered [facility] [employer] History of tobacco use Current smoker [facility] History of tobacco use Cigarette Smoker P [facility] Childcare Unknown [facility] Vital Signs Date Time Vital Sign Value Performing Clinician Facility 07-05-2023 10:00-0400 Body height 185.42 cm Luiz Riggs Other [facility] Other 07-05-2023 10:00-0400 Body mass index (BMI) [Ratio] 37.86 kg/m2 Luiz Riggs Other [facility] Other 07-05-2023 10:00-0400 Body weight 130.18 kg Luiz Riggs Other [facility] Other 07-05-2023 10:00-0400 Diastolic blood pressure 76 mm[Hg] Luiz Riggs Other [facility] Other 07-05-2023 10:00-0400 Systolic blood pressure 126 mm[Hg] Luiz Riggs Other [facility] Other 04-06-2022 17:40-0400 Body height 185.42 cm Neelam Alexandra Other [facility] Other 04-06-2022 17:40-0400 Body mass index (BMI) [Ratio] 36.15 kg/m2 Neelam Alexandra Other [facility] Other 04-06-2022 17:40-0400 Body temperature 98 [degF] Neelam Alexandra Other [facility] Other 04-06-2022 17:40-0400 Body weight 124.29 kg Neelam Alexandra Other [facility] Other 04-06-2022 17:40-0400 Diastolic blood pressure 69 mm[Hg] Neelam Alexandra Other [facility] Other 04-06-2022 17:40-0400 Respiratory rate 18 /min Neelam Alexandra Other [facility] Other 04-06-2022 17:40-0400 SaO2% (BldA) [Mass fraction] 95 % Neelam Alexandra Other [facility] Other 04-06-2022 17:40-0400 Systolic blood pressure 123 mm[Hg] Neelam Alexandra Other [facility] Other 12-28-2021 17:00-0500 Body height 185.42 cm Alex Bonilla Other [facility] Other 12-28-2021 17:00-0500 Body mass index (BMI) [Ratio] 37.47 kg/m2 Alex Bonilla Other [facility] Other 12-28-2021 17:00-0500 Body weight 128.82 kg Alex Bonilla Other [facility] Other Clinical Notes 11-21-2020 to 01-05-2024 Telephone Encounter [...] about 6 or 7 years ago, in [facility] and had injections. He states he has made his symptoms worse. Has had ambulatory care nurse many years ago for previous symptoms of [...] Past Medical History: Diagnosis Date Bladder cancer ([facility]) around 1997 Cholelithiasis Colon polyp Depression Dyslipidemia Hearing loss Left foot drop Peripheral neuropathy Seizure disorder ([facility]) TIA (transient ischemic attack) [...] by mouth in (more content not included)... [facility] 12-21-2023 Miscellaneous Notes Received faxed referral for patient to be seen for Lumbar. Called and spoke to patient, stated he has an appointment set up already at [facility] [[email or web address] office. documented in this encounter [facility] 12-21-2023 Telephone encounter Note Received faxed referral for patient to be seen for Lumbar. Called and spoke to patient, stated he has an appointment set up already at [facility] [facility] [[email or web address] office. [facility]2023 Evaluation note Encounter Date Diagnosis Assessment [...] fusion of cervical spine (ICD-10 - Z98.1) [facility] Other 06-09-2023 Hospital Discharge instructions Follow Up Care 04/29/2023 15:31:28 With:RABIA GAN, Chris Brizuela, URL Address: [facility] [address] , [place] [address]- [phone] When: Unknown [facility] 11-10-2022 NotePROCEDURE: XR FOOT RT MIN 3 [...] Electronically authenticated by: KELL BLANDON Date: 2022-09-30 08:07[facility]10-03-2022 NotePROCEDURE: XR KNEE LT 4V or >, [...] Electronically authenticated by: TRINIDAD BEAVER Date: 2022-08-23 14:[facility]10-03-2022 NotePROCEDURE: XR KNEE LT 4V or >, [...] Electronically authenticated by: TRINIDAD BEAVER Date: 2022-08-23 14:[facility]10-03-2022 NotePROCEDURE: XR KNEE LT 4V or >, [...] Electronically authenticated by: TRINIDAD BEAVER Date: 2022-08-23 14:[facility]05-17-2022 Evaluation note* Encounter Date Diagnosis Assessment Notes Treatment Notes Treatment Clinical Notes March, Bilateral impacted cerumen (ICD-10 - H61.23) Avoid using Q-tips or earplugs. Keep your ears clean and dry. Follow-up with your family physician for any further concerns. [facility] Other 02-07-2022 Evaluation note* Encounter Date Diagnosis [...] contact us for further management as needed. [facility] Other 01-01-2021 NoteMR#: [id number] E [facility] Pt. Name: Nazario Cortes Admitted: 11/20/2020 [...] history of coronary artery disease, followed by [email or web address] that presents to the [facility] [[email or web address] Emergency Department with complaints of chest pain. 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 Total time of discharge was 45 minutes. Electronically Signed by: Trinidad Hamilton MD 11/21/2020 08:00 A Trinidad Hamilton MD .. Date Dict: 11/20/2020/06:21 P/Loida Dion, DRAPERY ESTIMATOR Date Trans: 11/21/2020 12:04 A/víctoro [id number] cc: Jose Marie M.D. [facility] [address] [place], [place] [address]herson [facility] [address] [place] [address]Qei[facility] HospitalEvaluation + Plan note Future Appointments Appointment Date:08/19/2023 10:30:00 AM Scheduled Provider:Chris CAMARILLO MD Location:[facility] Appointment Type:URO New Patient [facility] evaluation noteNo assessment information available [facility] Work Phone: History general Narrative - Reported* Type Description Date Medical History Seizure Disorder Medical History neuropathy Medical History HX of Bladder CA Medical History hypercholesterolemia Surgical History TUMOR REMOVED FROM BLADDER Surgical History RIGHT ACHILLES TENDON REPAIR Hospitalization History See Above [employer] Other History general Narrative - Reported* Type [...] Surgical History gallbladder Hospitalization History See Above [facility] Other Hospital course Narrative No data available for this section [facility] InstructionsNot on filedocumented in this encounter [facility] No data available for this section [facility] reason for visit NarrativeReferral Dr. Newell [facility] [employer] Other Summary Purpose Family History No Family [...] o other toxic agents (G62.2) Referral Organization [facility] Ne urosurgery Referring Provider First Name Luiz Referring Provider Last Name Keely Referring Provider Specialty Neurologica l Surgery Referred Organization [facility] Referred Address ,[place], [place],[address] Referred Provider Specialty Physical The rapist Referral Priority Routine Chief Complaint and Reason for Visit Chief Complaint m51.36. Additional Source Comments (unrecognized sect ion and content) No Status Records FoundNo Status Records FoundNo Status Records FoundNo Status Records FoundNo Status Records FoundNo Status Records FoundNo Status Records FoundNo Status Records Found INFORMATION SOURCE (unrecogn ized section and content) DATE CREATED AUTHOR 08/29/2021 [facility] DATE CREATED AUTHOR AUTHOR'S ORGANIZ ATION 10/31/2021 [facility] DATE CREATED AUTHOR AUTHOR'S ORGANIZ ATION 01/13/2023 [facility] [place] [facility] DATE CREATED AUTHOR AUTHOR'S ORGANIZ ATION 07/14/[address] [facility] DATE CREATED AUTHOR AUTHOR'S ORGANIZ ATION 12/25/2023 [facility] DATE CREATED AUTHOR AUTHOR'S ORGANIZ ATION 12/29/2023 [facility] DATE CREATED AUTHOR AUTHOR'S ORGANIZ ATION 04/16/2024 [facility] DATE CREATED AUTHOR AUTHOR'S ORGANIZ ATION 04/18/2024 [facility] EPIC REASON FOR VISIT (unrecogniz ed section and content) RIGHT EAR PRESSURE/PAIN, DEN IES OTHER SXSleft leg weakness, back pain Care Teams (unrecognized sec tion and content) Team Status: Active Member Role Status Dates Jignesh Gonsalez MD Primary Care Provider Active Team Status: Inactive Member Role Status Dates Luiz Riggs MD Attending Provider Active Jignesh Gonsalez MD Primary Care Provider Active Forensic Analyst Relationship Specialty Start Date End Date Jose Marie DO [address] [facility], [address] [place] [address] PCP - General Family Medicine 11/17/23 Goals [...] BE BASED ON THE PRIMARY CLINICAL RECORDS. [facility]. provides no warranty or guarantee of the accuracy or completeness of information in this document.
== END 2024-04-23 20:56 | disposition home or self-care (01) ==
LOC: SLEEP 20:55
PROVIDERS: PCP Family Medicine; Visit Provider Family Medicine
DX: G47.33 Obstructive sleep apnea (adult) (pediatric) (principal)
CPT/HCPCS: 95810

== ENCOUNTER 2024-05-24 10:10 | Emergency (ER) | payer MEDICARE, MEDICAID, SELFPAY ==
[2024-05-24 10:13] VITALS: BP 135/78; PULSE 73; TEMP 36.9; O2SAT 94; BMI 39.0
--- OUTSIDE RECORDS SUMMARY | 2024-05-24 10:14 | XMS_ITS | CCD ---
Author Organization [facility] Care Team Providers Care Diagnostic Cardiac Sonographer Name Role Phone KARINA JAY Attending Unavailable [...] Admitting Unavailable FAWWAD TONY H Attending Unavailable FAWWAD TONY H Consulting Unavailable MAMIE ALFORD Consulting Unavailable HAY ., DR BUENROSTRO Admitting Unavailable HAY ., DR BUENROSTRO Attending Unavailable NADJEM, DR JIGNESH Means Primary Care Unavailable FORSYTH, DR TRINIDAD Cummins Consulting Unavailable LUZMARIA ., YONAS Consulting Unavailable NADJAIMER, DR JIGNESH Means Primary Care Unavailable HAY ., DR BUENROSTRO Admitting Unavailable HAY ., DR BUENROSTRO Attending Unavailable HAY ., DR BUENROSTRO Consulting Unavailable ALEJANDRO PINEDA Consulting Unavailable WALLACE, DR JIGNESH Means Primary Care Unavailable PAY ., DR NOVAK Admitting Unavailable PAY ., DR NOVAK Attending Unavailable PAY ., DR NOVAK Consulting Unavailable GRECHNY ., ANNABELLE WILLINGHAM Consulting Unavailyesi e EVELIO, VIDAL Consulting Unavailable KELL DELANEY Consulting Unavailable WALLACE, DR JIGNESH Means Admitting Unavailable WALLACE, DR JIGNESH Means Attending Unavailable WALLACE, DR JIGNESH Means Primary Care Unavailable BARBER, DR KELL Brizuela Consulting Unavailable WALLACE, DR JIGNESH Means Consulting Unavailable WALLACE, DR JIGNESH Means Admitting Unavailable WALLACE, DR JIGNESH Means Attending Unavailable WALLACE, DR JIGNESH Means Primary Care Unavailable BARBER, DR KELL Brizuela Consulting Unavailable WALLACEDR JIGNESH Consulting Unavailable Luiz Riggs Unavailable MD Luiz Riggs Attending Provider MD Jignesh Gonsalez Primary Care Provider JIGNESH GONSALEZ Primary Care Physician [phone] Jose Marie DO Primary Care Provider [phone] Chris CAMARILLO Attending Unavailable JIGNESH GONSALEZ Referring Unavailable Chris CAMARILLO Attending Unavailable ROGERIO BAINS Referring Unavailable CORNELIO HODGES Referring Unavailable CORNELIO HODGES Attending Unavailable MD Jignesh Gonsalez Primary Care Provider [phone] RIDGE Garcia Attending Provider Jignesh Gonsalez Primary Care Unavailable Luiz Riggs Attending Unavailable Luiz Riggs Admitting Unavailable Joslyn Garcia Attending Unavailable Joslyn Garcia Admitting Unavailable Jignesh Gonsalez Primary Care Unavailable JIGNESH GONSALEZ Attending Unavailable JIGNESH GONSALEZ Attending Unavailable SHAIKH MOTLEY Attending Unavailable JIGNESH GONSALEZ Attending Unavailable CORNELIO COTTER Attending Unavailable IMELDA THOMPSON Attending Unavailable JIGNESH GONSALEZ Attending Unavailable Allergies Allergy Classification Reported Allergen(s) Allergy Type Date of Onset Reaction(s) Facility Anti-Epileptic Agents (4 sources) gabapentin; Translations: [phenytoin] Drug Allergy 4 stomach upset, IV ONLY-Dizzy [facility] [place] [facility] Opioid Agonists (2 sources) oxyCODONE; Translations: [oxycodone] Drug Allergy 4 Unknown Reaction [facility] [place] [facility] (7 sources) gabapentin; Translations: [GABAPENTIN] Drug Allergy 0 stomach upset [facility] (2 sources) oxyCODONE Drug Allergy 0 [facility] (3 sources) Phenytoin; Translations: [Dilantin] Drug Allergy 0 [facility] (5 sources) gabapentin; Translations: [gabapentin] Drug Allergy 0 Unknown (qualifier value) [facility] (10 sources) oxyCODONE; Translations: [oxycodone] Drug Allergy 0 Difficulty breathing (finding), Angioedema [facility] (7 sources) Phenytoin; Translations: [phenytoin] Drug Allergy 6 Dizziness (finding), Dizziness [facility] (1 source) Phenytoin; Translations: [PHENYTOIN SODIUM EXTENDED] Drug Allergy 6 [facility] (1 source) ALLERGIES NOT ON FILE; Translations: [ALLERGIES NOT ON FILE] Propensity to adverse reactions (disorder) [facility] Medications Current Medications Medication Drug Class(es) Dates Sig (Normalized) Sig (Original) acetaminophen 325 mg / HYDROcodone bitartrate 5 mg oral tablet (5 sources) Opioid Agonist Start: 04-23-2024 take 1 tablet by mouth four times daily Hydrocodone-Aceta minophen Active 1 TAB PO Four times daily April 23, 2024 12:00am [place] Active take 1 tablet by mouth every six hours HYDROcodone-Acetaminophen 7.5-325 MG 1 tablet as needed Orally every 6 hrs Active aspirin 81 mg delayed release oral tablet (7 sources) Platelet Aggregation Inhibitor, Nonsteroidal Anti-inflammatory Drug Start: 04-23-2024 take 81 mg by mouth once daily Aspirin Active 81 MG PO Daily April 23, 2024 12:00am aspirin 81 mg da kimberly. 0 Active Baby Aspirin Act gloria atorvastatin 10 mg oral tablet (8 sources) HMG-CoA Reductase Inhibitor Start: 04-23-2024 take 10 mg by mouth once daily Atorvastatin Active 10 MG PO Daily April 23, 2024 12:00am Start: 07-15-2023 atorvastatin 1 0 mg Tab Refills(s) 0 Start Date: 07/15/23 Status: Ordered Atorvastatin Jesus cium Active citalopram 40 mg oral tablet (5 sources) Serotonin Reuptake Inhibitor Start: 04-23-2024 take 40 mg by mouth once daily Citalopram Active 40 MG PO Daily April 23, 2024 12:00am Start: 07-15-2023 citalopram 40 mg Tab Refills(s) 0 Start Date: 07/15/23 Status: Ordered take 0.5 tablet by m outh every twenty-four hours CeleXA 40 MG 0.5 tablet Orally Once a day Active dexpanthenol 2 mg/ml / niacinamide 100 mg/ml / riboflavin 2 mg/ml / thiamine 100 mg/ml / vitamin b6 2 mg/ml injectable solution (1 source) vit Z9-[id number]-M5-B5- B6 (B-COMPLEX INJECTION) 373-4-680-2-2 mg/mL solution B-Complex 1 QD 0 Active furosemide 40 mg oral tablet (3 sources) Loop Diuretic Start: 04-23-20 24 take 40 mg by mouth once daily Furosemide Active 40 MG PO Daily April 23, 2024 12:00am ibuprofen 800 mg oral tablet (2 sources) Nonsteroidal Anti-inflammatory Drug Start: 09-26-20 21 take 1 tablet by mouth three times daily ibuprofen (ADVIL,MOTRIN) 800 mg tablet Take 1 tablet (800 mg total) by mouth 3 (three) times a day. 21 tablet 0 09/26/2021 Active Ibuprofen Active meclizine hydrochloride 25 mg oral tablet (4 sources) Antiemetic Start: 04-23-2024 take 25 mg by mouth four times daily Meclizine Active 25 MG PO Four times daily April 23, 2024 12:00am Start: 07-15-2023 meclizine 25 m g Tab Refills(s) 0 Start Date: 07/15/23 Status: Ordered meloxicam 7.5 mg oral tablet (7 sources) Nonsteroidal Anti-inflammatory Drug Start: 04-23-2024 take 7.5 mg by mouth once daily Meloxicam Active 7.5 MG PO Daily April 23, 2024 12:00am meloxicam 15 mg tablet,disintegrating 1 tablet 0 Active Meloxicam Not-Ta noa Meloxicam Active Multivitamin preparation (3 sources) Start: 04-23-2024 take 1 tablet by mouth once daily Multivitamin Active 1 TAB PO Daily April 23, 2024 12:00am qcikwitspxnk-htagjxqu-jg tein (MULTIVITAMIN 50 PLUS) tablet (1 source) multivitamin-min erals-liam tein (MULTIVITAMIN 50 PLUS) tablet daily. 0 Active PHENobarbital 32.4 mg oral tablet (7 sources) Start: 04-23-2024 take 32.4 mg by mouth three times daily Phenobarbital Active 32.4 MG PO Three times daily April 23, 2024 12:00am Start: 11-15-2022 take 2 tablets by mo [facility] three times daily PHENobarbitaL (LUMINAL) 32.4 mg tablet Indications: Seizure (CMS-HCC) take 2 tablets by mouth three times a day 180 tablet 0 11/15/2022 Active take 1 tablet by ambika every twelve hours PHENobarbital 32.4 MG 1 tablet Orally Twice a day Active phenytoin sodium 100 mg extended release oral capsule (8 sources) Anti-epileptic Agent Start: 04-23-2024 take 200 mg by mouth twice daily Phenytoin Sodium Extended Active 200 MG PO Twice daily April 23, 2024 12:00am Start: 07-15-2023 phenytoin 100 mg Cap-ER Refills(s) 0 Start Date: 07/15/23 Status: Ordered Start: 08-30-2022 phenytoin (DIL ANTIN) 100 mg ER capsule take 2 capsules three times a day 360 capsule 1 08/30/2022 Active take 1 capsule by mo [facility] every twelve hours Phenytoin Sodium Extended 100 MG 1 capsule Orally every 12 hrs Active Potassium Chloride (3 sources) Start: 04-23-2024 Potassium Chlo ride Active MEQ PO April 23, 2024 12:00am vitamin b12 5 mg oral capsule (5 sources) Vitamin B12 Start: 04-23-2024 take 5000 ug by mouth once daily Cyanocobalamin (Vitamin B-12) Active 5000 MCG PO Daily April 23, 2024 12:00am Vitamin B12 Acti ve Completed/Discontinued Medications Medication Drug Class(es) Dates Sig (Normalized) Sig (Original) Mens Multivitamin (2 sources) Mens Multivitami n Not-Taking Mens Multivitami n Active Problems Active Problems Problem Classification Problem Date Documented Date Episodic/Chronic Acquired foot deformities (1 source) Foot drop, left foot Episodic Bacterial infection; unspecified site (3 sources) Rheumatic fever; Translations: [Rheumatic fever without heart involvement] 04-23-2024 Episodic Biliary tract disease (3 sources) Disorder of gallbladder; Translations: [Disease of gallbladder, unspecified] 04-23-2024 Episodic Cancer of bladder (5 sources) Malignant tumor of urinary bladder; Translations: [...] disease (1 source) Atherosclerotic heart disease of picayune coronary artery without angina pectoris; Translations: [ASHD MENTASTA CA W/O ANGINA PECTORIS] Onset: 12-27-2022 Chronic Disorders of lipid metabolism (8 sources) Mixed hyperlipidemia; Translations: [Pure hypercholesterolemia, unspecified] Onset: 01-28-2020 07-15-2023 Chronic E Codes: Fall (2 sources) Fall on same level, unspecified, initial encounter; Translations: [Unspecified fall, initial encounter] Onset: 08-25-2022 Episodic Epilepsy; convulsions (5 sources) Other epilepsy, not intractable, without status epilepticus; Translations: [Epilepsy, unspecified, not intractable, without status epilepticus] Onset: 06-22-2022 04-23-2024 Chronic Fracture of upper limb (1 source) Displaced fracture of head of left radius, initial encounter for closed fracture; Translations: [DSPL FX HEAD LT RADIUS INIT CLOS FX] Onset: 12-27-2022 Episodic Joint disorders and dislocations; trauma-related (1 source) Derangement of right knee; Translations: [Unspecified internal derangement of right knee] Onset: 08-16-2022 08-16-2022 Chronic Malignant neoplasm without specification of site (4 sources) Extragonadal germinoma; 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, unspecified] Onset: 01-19-1998 08-16-2022 Chronic Mood disorders (3 sources) Chronic depression; Translations: [Chronic depression] 04-23-2024 Chronic Osteoarthritis (5 sources) Unspecified osteoarthritis, unspecified site; Translations: [Arthritis of right hip] Onset: 08-16-2022 08-16-2022 Chronic Other aftercare (1 source) halfway (current) use of aspirin; Translations: [SKILLED NURSING CURRENT USE OF ASPIRIN] Onset: 12-27-2022 Episodic Other aftercare (1 source) Other prison (current) drug therapy; Translations: [OTH SKILLED NURSING CURRENT DRUG THERAPY] Onset: 12-27-2022 Episodic Other and unspecified benign neoplasm (7 sources) History of polyp of colon; Translations: [Personal history of colonic polyps] Onset: 01-28-2020 08-16-2022 Episodic Other bone disease and musculoskeletal deformities (1 source) Other specified disorders of bone density and structure, unspecified site; Translations: [OTH D/O BONE DEN STRUCT UNS SITE] Onset: 11-07-2022 Episodic Other connective tissue disease (6 sources) Dupuytren's contracture; Translations: [Palmar fascial fibromatosis [Dupuytren]] 04-23-2024 Episodic Other connective tissue disease (2 sources) Arthrodesis status; Translations: [ARTHRODESIS STATUS] Onset: 11-07-2022 Episodic Other ear and sense organ disorders (4 sources) Impacted cerumen, bilateral; Translations: [Impacted cerumen] Onset: 04-06-2022 Resolved: 04-06-2022 Episodic Other ear and sense organ disorders (1 source) Impacted cerumen, right ear; Translations: [IMPACTED CERUMEN RIGHT EAR] Onset: 11-07-2022 Episodic Other ear and sense organ disorders (3 sources) Impacted cerumen; Translations: [Impacted cerumen, bilateral] 04-23-2024 Episodic Other nervous system disorders (6 sources) Toxic polyneuropathy; 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 Other nervous system disorders (2 sources) Polyneuropathy due to other toxic agents Onset: 12-28-2021 Resolved: 12-28-2021 Chronic Other nervous system disorders (1 source) Sequelae of toxic polyneuropathy; 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] Onset: 11-07-2022 Chronic Other nervous system disorders (1 source) Polyneuropathy, unspecified; Translations: [POLYNEUROPATHY UNSPECIFIED] Onset: 08-25-2022 Chronic Other nervous system disorders (4 sources) Neuropathy; Translations: [Drug-induced polyneuropathy] Onset: 01-28-2020 08-16-2022 Chronic Other non-traumatic joint disorders (3 sources) Pain in left hip; Translations: [PAIN IN LEFT HIP] Onset: 12-24-2022 Episodic Other non-traumatic joint disorders (2 sources) Pain in elbow; Translations: [Pain in left elbow] 05-15-2024 Episodic Other non-traumatic joint disorders (3 sources) Pain in left elbow; Translations: [Pain in joint, upper arm] Onset: 05-15-2024 05-15-2024 Episodic Other nutritional; endocrine; and metabolic disorders (1 source) Hypocalcemia; Translations: [HYPOCALCEMIA] Onset: 11-07-2022 Chronic Other nutritional; endocrine; and metabolic disorders (1 source) Obesity, unspecified; Translations: [OBESITY UNSPECIFIED] Onset: 10-04-2022 Chronic Other nutritional; endocrine; and metabolic disorders (4 sources) Obesity; Translations: [Obesity, unspecified] Onset: 01-12-2021 08-16-2022 [...] Spondylosis; intervertebral disc disorders; other back problems (18 sources) Degeneration of lumbar intervertebral disc; Translations: [Other intervertebral disc degeneration, lumbar region] Onset: 12-28-2021 Resolved: 12-28-2021 Chronic Superficial injury; contusion (2 sources) Contusion of left hip, initial encounter; Translations: [Abrasion of left elbow, initial encounter] Onset: 12-27-2022 Episodic Syncope (5 sources) Syncope and collapse; Translations: [SYNCOPE AND COLLAPSE] Onset: 11-07-2022 Episodic Transient cerebral ischemia (3 sources) Transient cerebral ischemia; Translations: [Transient cerebral ischemic attack, unspecified] 04-23-2024 Chronic Unclassified (1 source) CONTACT W/AND (SUSP) EXPOS [...] [CHEST PAIN UNSPECIFIED] Onset: 06-12-2022 Episodic Other connective tissue disease (4 sources) Pain in right foot; Translations: [PAIN IN RIGHT FOOT] Onset: 09-29-2022 Episodic Other injuries and conditions due to [...] Name Value Interpretation Reference Range Facility XR elbow LT min 3V*on 2023 XR elbow LT min 3V* [facility] [address] [place] [id number] XRay Report Signed Patient: Nazario Cortes Jr MR#: [id number] : 1955 Acct:[id number] Age/Sex: 69 / M ADM Date: 05/15/24 Loc: XDUCLY Room: Type: [facility] Attending Dr: Joslyn Garcia APRN Copies to: Joslyn Garcia APRN Ordering Provider: Joslyn Garcia APRN Date of Service: 05/15/24 XR/XR elbow LT min 3V*: M25.522 - Pain in left elbow 4 views leftelbow plain film COMPARISON :None HISTORY: Left elbow injury. Fell. ACUTE FINDINGS: Concern for subtle fracture of the radial neck. DEGENERATIVE CHANGE: Unremarkable SOFT TISSUE FINDINGS: Unremarkable JOINT EFFUSION: None POSTOP CHANGES: None BONE MINERALIZATION: Adequate XR/XR elbow LT min 3V* IMPRESSION: Concern for nondisplaced radial neck fracture. Impression dictated by: Zain Fitzpatrick M.D.05/15/2024 4:23 PM Dictation Location: [place] [address] Transcribed By: [facility] 05/15/24 1623 Dictated By: Zain Fitzpatrick DO 05/15/24 1621 Signed By: 05/15/24 1623 Normal [facility] Orders Onlyon 04-11-2024 Orders Only [id number] Nazario Cortes 1955 M Date Provider Department Center 04/11/2024 [id number], HISTORICAL [facility] Family History Problem Relation Age of Onset Supraventricular tachycardia Mother Stroke Father Kidney cancer Sister Diabetes Sister COPD Brother Family Status - Relation Status Age at Mother Father Sister Brother Normal [facility] Consulton 01-05-2024 Consult [id number] Nazario Cortes 1955 M Date Provider Department Center 01/05/2024 Oscar-CORNELIO HODGES [facility] [place] Family History Problem Relation Age of Onset Supraventricular tachycardia Mother Stroke Father Kidney cancer Sister Diabetes Sister COPD Brother Family Status - Relation Status Age at Mother Father Sister Brother Level of Service:[id number] AR OFFICE/OUTPATIENT NEW MODERATE MDM 45 MINUTES Reason [...] little relief about 6-7 years ago. Normal [facility] XR lumbar spine 6V w bending on 07-05-2023 XR lumbar spine 6V w bending [facility] [address] [place] [address] XRay Report Signed Patient: Nazario Cortes Jr MR#: [id number] : 1955 Acct:[id number] Age/Sex: 68 / M ADM Date: 07/05/23 Loc: XD Room: Type: [facility] Attending Dr: Luiz Riggs MD Copies [...] Hoa Lockwood M.D.07/05/2023 2:21 PM Dictation Location: [facility] [employer]--10 Transcribed By: [facility] 07/05/23 1421 Dictated By: Hoa Lockwood MD 07/05/23 1415 Signed By: 07/05/23 142 Normal [facility] US CAROTID ART BILon 01-11- 023 US [...] by: KELL BLANDON Date: 2023-01-11 08:42 Normal [facility] ECHOCARDIO M/2D COMPLETEon 0 01-07-2023 ECHOCARDIO M/2D COMPLETE Patient: NAZARIO CORTES Exam Date: 01/07/2023 : 1955 Gender:M Ordering : DR JIGNESH GONSALEZ . Admission #: [id number] Family : Order #: [id number] CLICK HERE TO VIEW EXAM ECHOCARDIOGRAM REPORT [...] Smith M.D. on 01/11/2023 at 18:23 Normal [facility] XR ELBOW LT MIN 3 VIEWSon XR [...] by: VIDAL FRASER Date: 2022-12-24 20:23 Normal [facility] XR HIP LT 2 3V W PELVISon XR HIP LT 2 3V W PELVIS EXAM: XR HIP LT 2 3V W PELVIS HISTORY: Bone injury COMPARISON: None. TECHNIQUE: 3 views of the left hip FINDINGS: No acute fracture is seen. Joint alignment is normal. Joint spaces are preserved. Soft tissues appear unremarkable. IMPRESSION: No acute fracture or malalignment. Electronically authenticated by: VIDAL TizaroKRYSTAL Date: 2022-12-24 20:21 Normal [facility] XR HUMERUS LT MIN 2Von 12-24 [...] KELL DELANEY Date: 2022-12-24 21:03 Normal [facility] CBC AUTO DIFFon 11-04-2022 BASO # 0.1 103/ul Normal 0.0-0.1 [facility] Comment on above: Performed By: #### B MP, CMREP, LIPID #### [facility] [address] [place] [address] [address] Jeimy Tenorio Basophils/100 WBC (Bld) 0.9 % Normal 0.2-2.0 [facility] Comment on above: Performed By: #### B MP, CMREP, LIPID #### [facility] [address] [place] [address] [address] Jeimy Tenorio EO # 0.3 103/ul Normal 0.0-0.7 [facility] Comment on above: Performed By: #### B MP, CMREP, LIPID #### [facility] [address] [place] [address] [address] Jeimy Tenorio Eosinophils/100 WBC (Bld) 5.2 % Normal 0.9-7.0 [facility] Comment on above: Performed By: #### B MP, CMREP, LIPID #### [facility] [address] [place] [address] [address] Jeimy Tenorio Erythrocyte distribution width (RBC) [Ratio] 12.9 % Normal 11.0-15.0 [facility] Comment on above: Performed By: #### B MP, CMREP, LIPID #### [facility] [address] [place] [address] [address] Jeimy Tenorio Hematocrit (Bld) [Volume fraction] 39.5 % Critically low 42.0-54.0 [facility] Comment on above: Performed By: #### B MP, CMREP, LIPID #### [facility] [address] [place] [address] Dr. Jeimy Tenorio Hemoglobin (Bld) [Mass/Vol] 13.1 g/dL Critically low 14.0-18.0 [facility] Comment on above: Performed By: #### B MP, CMREP, LIPID #### [facility] [address] [place] [address] Dr. Jeimy Tenorio IG # 0.03 10e3/ul Normal 0.00-0.03 [facility] Comment on above: Performed By: #### B MP, CMREP, LIPID #### [facility] [address] [place] [address] Dr. Jeimy Tenorio IG % 0.5 % Normal 0.0-0.5 [facility] Comment on above: Performed By: #### B MP, CMREP, LIPID #### [facility] [address] [place] [address] Dr. Jeimy Tenorio LYMPH # 1.5 103/ul Normal 1.2-3.8 [facility] Comment on above: Performed By: #### B MP, CMREP, LIPID #### [facility] [address] [place] [address] Dr. Jeimy Tenorio Lymphocytes/100 WBC (Bld) 22.6 % Normal 20.5-60.0 [facility] Comment on above: Performed By: #### B MP, CMREP, LIPID #### [facility] [address] [place] [address] Dr. Jeimy Tenorio MANUAL DIFF REQ NO Normal [facility] Comment on above: Performed By: #### B MP, CMREP, LIPID #### [facility] [address] [place] [address] Dr. Jeimy Tenorio MCH (RBC) [Entitic mass] 32.8 pg Normal 25.9-34.0 [facility] Comment on above: Performed By: #### B MP, CMREP, LIPID #### [facility] [address] [place] [address] Dr. Jeimy Tenorio MCHC (RBC) [Mass/Vol] 33.2 g/dL Normal 29.9-35.2 [facility] Comment on above: Performed By: #### B MP, CMREP, LIPID #### [facility] [address] [place] [address] Dr. Jeimy Tenorio MCV (RBC) [Entitic vol] 99.0 fL Critically high 80.0-94.0 [facility] Comment on above: Performed By: #### B MP, CMREP, LIPID #### [facility] [address] [place] [address] Dr. Jeimy Tenorio MONO # 0.7 103/ul Normal 0.3-0.8 [facility] Comment on above: Performed By: #### B MP, CMREP, LIPID #### [facility] [address] [place] [address] Dr. Jeimy Tenorio Monocytes/100 WBC (Bld) 10.6 % Normal 1.7-12.0 [facility] Comment on above: Performed By: #### B MP, CMREP, LIPID #### [facility] [address] [place] [address] Dr. Jeimy Tenorio NEUT # 4.0 103/ul Normal 1.4-6.5 [facility] Comment on above: Performed By: #### B MP, CMREP, LIPID #### [facility] [address] [place] [address] Dr. Jeimy Tenorio Neutrophils/100 WBC (Bld) 60.2 % Normal 43.0-75.0 [facility] Comment on above: Performed By: #### B MP, CMREP, LIPID #### [facility] [address] [place] [address] Dr. Jeimy Tenorio Platelet mean volume (Bld) [Entitic vol] 9.7 fL Normal 9.5-13.5 [facility] Comment on above: Performed By: #### B MP, CMREP, LIPID #### [facility] [address] [place] [address] Dr. Jeimy Tenorio PLT 176 103/ul Normal 150-450 [facility] Comment on above: Performed By: #### B MP, CMREP, LIPID #### [facility] [address] [place], [place] [address] Dr. Jeimy Tenorio RBC 3.99 106/ul Critically low 4.70-6.10 [facility] Comment on above: Performed By: #### B MP, CMREP, LIPID #### [facility] [address] [place], [place] [address] Dr. Jeiym Tenorio WBC 6.6 103/ul Normal 4.0-11.0 [facility] Comment on above: Performed By: #### B MP, CMREP, LIPID #### [facility] [address] [place], [place] [address] HEAD WO CONon [...] ALEJANDRO PINEDA Date: 2022-11-04 14:08 Normal [facility] Covid-19 PCR (CVDTB)on 10-21 SARS-CoV-2 (COVID-19) RNA ALEX+probe Ql (Unsp spec) Not detected Normal NOT DETECTED [facility] Comment on above: Result Comment: This test is not yet approved or cleared by the [place] FDA. When there are no FDA-approved or cleared tests available, and other criteria are met, FDA can make tests available under an emergency access mechanism called an Emergency Use Authorization (EUA). The EUA for this test is supported by the [employer] of Health and Human Service's (HHS's) declaration [...] By: #### B MP, CMREP, LIPID #### [facility] [address] [place] [address] Dr. Jeimy Tenorio INFLUENZA A AND B AGon 11-04 INFLUANE SEE BELOW Normal [facility] Comment on above: Result Comment: Nega tive for Flu A protein angiten. Infection due to Flu A cannot be ruled out. Flu A angiten in the sample may be below the detection limit of the test. Performed By: #### I NFLUAB #### [facility] [address] [place] [address] Dr. Jeimy Tenorio INFLUBNEGH SEE BELOW Normal [facility] Comment on above: Result Comment: Nega tive for Flu B protein antigen. Infection due to Flu B cannot be ruled out. Flu B antigen in the sample may be below the detection limit of the test. Performed By: #### I NFLUAB #### [facility] [address] [place] [address] Dr. Jeimy Tenorio INFLUENZA A AG Negative Normal NEGATIVE SEE COMMENT [facility] Comment on above: Performed By: #### I NFLUAB #### [facility] [address] [place] [address] Dr. Jeimy Tenorio INFLUENZA B AG Negative Normal NEGATIVE SEE COMMENT [facility] Comment on above: Performed By: #### I NFLUAB #### [facility] [address] [place] [address] Dr. Jeimy Tenorio INTERNAL CONTROLS Within Normal Limits Normal Wi thin Normal Limits [facility] Comment on above: Performed By: #### I NFLUAB #### [facility] [address] [place] [address] Dr. Jeimy Tenorio PROF CHEM 8 (BAS METB)on Anion gap [Moles/Vol] 9.7 mmol/L Normal [facility] Comment on above: Performed By: #### C BC #### [facility] [address] [place] [address] Dr. Jeimy Tenorio Calcium [Mass/Vol] 8.0 mg/dL Critically low 8.5-10.1 [facility] Comment on above: Performed By: #### C BC #### [facility] [address] [place] [address] Dr. Jeimy Tenorio Chloride [Moles/Vol] 104 mmol/L Normal 98-107 [facility] Comment on above: Performed By: #### C BC #### [facility] [address] [place] [address] Dr. Jeimy Tenorio CO2 [Moles/Vol] 31.1 mmol/L Normal 21.0-32.0 [facility] Comment on above: Performed By: #### C BC #### [facility] [address] [place] [address] Dr. Jeimy Tenorio Creatinine [Mass/Vol] 0.75 mg/dL Normal 0.70-1.30 [facility] Comment on above: Performed By: #### C BC #### [facility] [address] [place] [address] Dr. Jeimy Tenorio EGFR-AF THAI >60 Normal >=60 [facility] Comment on above: Performed By: #### C BC #### [facility] [address] [place] [address] Dr. Jeimy Tenorio EGFR-NON AF THAI >60 Normal >=60 [facility] Comment on above: Performed By: #### C BC #### [facility] [address] [address] [address] Jeimy Tenorio Glucose [Mass/Vol] 76 mg/dL Normal 74-106 [facility] Comment on above: Performed By: #### C BC #### [facility] [address] [address] [address] Jeimy Tenorio Potassium [Moles/Vol] 3.8 mmol/L Normal 3.5-5.1 [facility] Comment on above: Performed By: #### C BC #### [facility] [address] [address] [address] Jeimy Tenorio Sodium [Moles/Vol] 141 mmol/L Normal 136-145 [facility] Comment on above: Performed By: #### C BC #### [facility] [address] [address] [address] Jeimy Tenorio Urea nitrogen [Mass/Vol] 12.0 mg/dL Normal 7.0-18.0 [facility] Comment on above: Performed By: #### C BC #### [facility] [address] [address] [address] Jeimy Tenorio Urea nitrogen/Creatinine [Mass ratio] 16.0 mg/mg Normal [facility] Comment on above: Performed By: #### C BC #### [facility] [address] [address] [address] Jeimy Tenorio TROPONIN, HIGH SENSITIVITYon 11-04-2022 HSTROP 5.8 pg/mL Normal 4.0-76.1 [facility] Comment on above: Result Comment: CUT- OFF POINTS HAVE BEEN ESTABLISHED BASED ON THE FOURTH UNIVERSAL DEFINITIONS OF MYOCARDIAL INFARCTION. THE UPPER REFERENCE LIMIT (URL) OF TROPONIN, DEFINED THE 99TH PERCENTILE OF cTnI DISTRIBUTION IN A REFERENCE POPULATION, HAS BEEN CONFIRMED THE DECISION THRESHOLD FOR [facility] DIAGNOSIS. Performed By: #### C BC #### [facility] [address] [place] [address] Dr. Jeimy Tenorio CBC AUTO DIFFon 09-29-2022 BASO # 0.1 103/ul Normal 0.0-0.1 [facility] Comment on above: Performed By: #### B MP, CMREP, LIPID #### [facility] [address] [place] [address] Dr. Jeimy Tenorio Basophils/100 WBC (Bld) 1.2 % Normal 0.2-2.0 [facility] Comment on above: Performed By: #### B MP, CMREP, LIPID #### [facility] [address] [place] [address] Dr. Jeimy Tenorio EO # 0.3 103/ul Normal 0.0-0.7 [facility] Comment on above: Performed By: #### B MP, CMREP, LIPID #### [facility] [address] [place] [address] Dr. Jeimy Tenorio Eosinophils/100 WBC (Bld) 4.9 % Normal 0.9-7.0 [facility] Comment on above: Performed By: #### B MP, CMREP, LIPID #### [facility] [address] [place] [address] Dr. Jeimy Tenorio Erythrocyte distribution width (RBC) [Ratio] 13.2 % Normal 11.0-15.0 [facility] Comment on above: Performed By: #### B MP, CMREP, LIPID #### [facility] [address] [place] [address] Dr. Jeimy Tenorio Hematocrit (Bld) [Volume fraction] 42.3 % Normal 42.0-54.0 [facility] Comment on above: Performed By: #### B MP, CMREP, LIPID #### [facility] [address] [place] [address] Dr. Jeimy Tenorio Hemoglobin (Bld) [Mass/Vol] 13.8 g/dL Critically low 14.0-18.0 [facility] Comment on above: Performed By: #### B MP, CMREP, LIPID #### [facility] [address] [place] [address] Dr. Jeimy Tenorio IG # 0.02 10e3/ul Normal 0.00-0.03 [facility] Comment on above: Performed By: #### B MP, CMREP, LIPID #### [facility] [address] [address] [address] Jeimy Tenorio IG % 0.3 % Normal 0.0-0.5 [facility] Comment on above: Performed By: #### B MP, CMREP, LIPID #### [facility] [address] [address] [address] Jeimy Tenorio LYMPH # 1.3 103/ul Normal 1.2-3.8 [facility] Comment on above: Performed By: #### B MP, CMREP, LIPID #### [facility] [address] [address] [address] Jeimy Tenorio Lymphocytes/100 WBC (Bld) 19.5 % Critically low 20.5-60.0 [facility] Comment on above: Performed By: #### B MP, CMREP, LIPID #### [facility] [address] [place] [address] Dr. Jeimy Tenorio MANUAL DIFF REQ NO Normal [facility] Comment on above: Performed By: #### B MP, CMREP, LIPID #### [facility] [address] [address] [address] Jeimy Tenorio MCH (RBC) [Entitic mass] 32.9 pg Normal 25.9-34.0 [facility] Comment on above: Performed By: #### B MP, CMREP, LIPID #### [facility] [address] [place] [address] Dr. Jeimy Tenorio MCHC (RBC) [Mass/Vol] 32.6 g/dL Normal 29.9-35.2 [facility] Comment on above: Performed By: #### B MP, CMREP, LIPID #### [facility] [address] [address] [address] Jeimy Tenorio MCV (RBC) [Entitic vol] 100.7 fL Critically high 80.0-94.0 [facility] Comment on above: Performed By: #### B MP, CMREP, LIPID #### [facility] [address] [address] [address] Jeimy Tenorio MONO # 0.7 103/ul Normal 0.3-0.8 [facility] Comment on above: Performed By: #### B MP, CMREP, LIPID #### [facility] [address] [place] [address] Dr. Jeimy Tenorio Monocytes/100 WBC (Bld) 9.9 % Normal 1.7-12.0 [facility] Comment on above: Performed By: #### B MP, CMREP, LIPID #### [facility] [address] [place] [address] Dr. Jeimy Tenorio NEUT # 4.3 103/ul Normal 1.4-6.5 [facility] Comment on above: Performed By: #### B MP, CMREP, LIPID #### [facility] [address] [place] [address] Dr. Jeimy Tenorio Neutrophils/100 WBC (Bld) 64.2 % Normal 43.0-75.0 [facility] Comment on above: Performed By: #### B MP, CMREP, LIPID #### [facility] [address] [place] [address] Dr. Jeimy Tenorio Platelet mean volume (Bld) [Entitic vol] 10.4 fL Normal 9.5-13.5 [facility] Comment on above: Performed By: #### B MP, CMREP, LIPID #### [facility] [address] [place] [address] Dr. Jeimy Tenorio PLT 209 103/ul Normal 150-450 [facility] Comment on above: Performed By: #### B MP, CMREP, LIPID #### [facility] [address] [place] [address] Dr. Jeimy Tenorio RBC 4.20 106/ul Critically low 4.70-6.10 [facility] Comment on above: Performed By: #### B MP, CMREP, LIPID #### [facility] [address] [place] [address] Dr. Jeimy Tenorio WBC 6.7 103/ul Normal 4.0-11.0 [facility] Comment on above: Performed By: #### B MP, CMREP, LIPID #### [facility] [address] [place] [address] Dr. Jeimy Tenorio DILANTIKaylen 09-29-2022 Phenytoin [Mass/Vol] 23.7 ug/mL Critically high 10.0-20.0 [facility] Comment on above: Performed By: #### C BC #### [facility] [address] [address] [address] Jeimy Tenorio GLYCOHEMOGLOBIN A1Con 2021 ADA RECOMMENDATION SEE BELOW Normal [facility] Comment on above: Result Comment: ADA RECOMMENDED LIMIT 4.0 - 6.0 ADA THERAPEUTIC TARGET < 7.0 ACTION SUGGESTED > 7.0 Performed By: #### A 1C #### [facility] [address] [address] [address] Jeimy Tenorio Glucose [Mass/Vol] 105 mg/dL Normal [facility] Comment on above: Performed By: #### A 1C #### [facility] [address] [address] [address] Jeimy Tenorio HbA1c (Bld) [Mass fraction] 5.3 % Normal 4.5-6.2 [facility] Comment on above: Performed By: #### A 1C #### [facility] [address] [address] [address] Jeimy Tenorio LIPID PROFILEon 09-29-2022 CHOL-HDL RATIO NORM SEE BELOW Normal [facility] Comment on above: Result Comment: 3.3 - 4.4 LOW RISK 4.4 - 7.1 AVERAGE RISK 7.1 - 11.0 MODERATE RISK >11.0 HIGH RISK Performed By: #### B MP, CMREP, LIPID #### [facility] [address] [address] [address] Jeimy Tenorio Cholesterol [Mass/Vol] 178 mg/dL Normal <=200 [facility] Comment on above: Performed By: #### B MP, CMREP, LIPID #### [facility] [address] [address] [address] Jeimy Tenorio Cholesterol in HDL [Mass/Vol] 56 mg/dL Normal 40-60 [facility] Comment on above: Performed By: #### B MP, CMREP, LIPID #### [facility] [address] [address] [address] Jeimy Tenorio Cholesterol in LDL [Mass/Vol] 86.8 mg/dL Normal [facility] Comment on above: Performed By: #### B MP, CMREP, LIPID #### [facility] [address] [address] [address] Jeimy Tenorio Cholesterol.total/Ch olesterol in HDL [Mass ratio] 3.2 {ratio} Normal [facility] Comment on above: Performed By: #### B MP, CMREP, LIPID #### [facility] [address] [address] [address] Jeimy Tenorio HDL NORMAL > or = 60 mg/dl - LO W CARDIOVASCULAR RISK <40 mg/dl - HIGH CARDIOVASCULAR RISK Normal [facility] Comment on above: Performed By: #### B MP, CMREP, LIPID #### [facility] [address] [address] [address] Jeimy Tenorio LDL CALC NORMAL SEE BELOW Normal [facility] Comment on above: Result Comment: <100 mg/dl OPTIMAL 100 - 129 mg/dl NEAR OR ABOVE OPTIMAL 130 - 159 mg/dl BORDERLINE HIGH 160 - 189 mg/dl HIGH >190 mg/dl VERY HIGH Performed By: #### B MP, CMREP, LIPID #### [facility] [address] [address] [address] Jeimy Tenorio Triglyceride [Mass/Vol] 176 mg/dL Critically high <=150 [facility] Comment on above: Performed By: #### B MP, CMREP, LIPID #### [facility] [address] [address] [address] Jeiym Tenorio VLDL CALC 35.2 mg/dL Normal [facility] Comment on above: Performed By: #### B MP, CMREP, LIPID #### [facility] [address] [address] [address] Jeimy Tenorio LIVER PROFILEon 09-29-2022 Albumin [Mass/Vol] 3.5 g/dL Normal 3.4-5.0 [facility] Comment on above: Performed By: #### B MP, CMREP, LIPID #### [facility] [address] [address] [address] Jeimy Tenorio Albumin/Globulin [Mass ratio] 0.8 {ratio} Normal [facility] Comment on above: Performed By: #### B MP, CMREP, LIPID #### [facility] [address] [address] [address] Jeimy Tenorio ALP [Catalytic activity/Vol] 139 U/L Critically high 46-116 [facility] Comment on above: Performed By: #### B MP, CMREP, LIPID #### [facility] [address] [address] [address] Jeimy Tenorio ALT [Catalytic activity/Vol] 25 U/L Normal 16-63 [facility] Comment on above: Performed By: #### B MP, CMREP, LIPID #### [facility] [address] [place] [address] Dr. Jeimy Tenorio AST [Catalytic activity/Vol] 23 U/L Normal 15-37 [facility] Comment on above: Performed By: #### B MP, CMREP, LIPID #### [facility] [address] [place] [address] Dr. Jeimy Tenorio BILI, CONJUGATED 0.0 mg/dL Normal 0.0-0.2 [facility] Comment on above: Performed By: #### B MP, CMREP, LIPID #### [facility] [address] [place] [address] Dr. Jeimy Tenorio Bilirubin [Mass/Vol] 0.3 mg/dL Normal 0.2-1.0 [facility] Comment on above: Performed By: #### B MP, CMREP, LIPID #### [facility] [address] [place] [address] Dr. Jeimy Tenorio Globulin (S) [Mass/Vol] 4.3 g/dL Normal [facility] Comment on above: Performed By: #### B MP, CMREP, LIPID #### [facility] [address] [address] [address] Jeimy Tenorio Protein [Mass/Vol] 7.8 g/dL Normal 6.4-8.2 [facility] Comment on above: Performed By: #### B MP, CMREP, LIPID #### [facility] [address] [place] [address] Dr. Jeimy Tenorio PROF CHEM 8 (BAS METB)on Anion gap [Moles/Vol] 8.7 mmol/L Normal [facility] Comment on above: Performed By: #### B MP, CMREP, LIPID #### [facility] [address] [place] [address] Dr. Jeimy Tenorio Calcium [Mass/Vol] 8.7 mg/dL Normal 8.5-10.1 [facility] Comment on above: Performed By: #### B MP, CMREP, LIPID #### [facility] [address] [place] [address] Dr. Jeimy Tenorio Chloride [Moles/Vol] 104 mmol/L Normal 98-107 [facility] Comment on above: Performed By: #### B MP, CMREP, LIPID #### [facility] [address] [place] [address] Dr. Jeimy Tenorio CO2 [Moles/Vol] 29.8 mmol/L Normal 21.0-32.0 [facility] Comment on above: Performed By: #### B MP, CMREP, LIPID #### [facility] [address] [place] [address] Dr. Jeimy Tenorio Creatinine [Mass/Vol] 0.76 mg/dL Normal 0.70-1.30 [facility] Comment on above: Performed By: #### B MP, CMREP, LIPID #### [facility] [address] [place] [address] Dr. Jeimy Tenorio EGFR-AF THAI >60 Normal >=60 [facility] Comment on above: Performed By: #### B MP, CMREP, LIPID #### [facility] [address] [place] [address] Dr. Jeimy Tenorio EGFR-NON AF THAI >60 Normal >=60 [facility] Comment on above: Performed By: #### B MP, CMREP, LIPID #### [facility] [address] [place] [address] Dr. Jeimy Tenorio Glucose [Mass/Vol] 95 mg/dL Normal 74-106 [facility] Comment on above: Performed By: #### B MP, CMREP, LIPID #### [facility] [address] [place] [address] Dr. Jeimy Tenorio Potassium [Moles/Vol] 4.5 mmol/L Normal 3.5-5.1 [facility] Comment on above: Performed By: #### B MP, CMREP, LIPID #### [facility] [address] [address] [address] Jeimy Tenorio Sodium [Moles/Vol] 138 mmol/L Normal 136-145 [facility] Comment on above: Performed By: #### B MP, CMREP, LIPID #### [facility] [address] [place] [address] Dr. Jeimy Tenorio Urea nitrogen [Mass/Vol] 18.0 mg/dL Normal 7.0-18.0 [facility] Comment on above: Performed By: #### B MP, CMREP, LIPID #### [facility] [address] [place] [address] Dr. Jeimy Tenorio Urea nitrogen/Creatinine [Mass ratio] 23.7 mg/mg Normal [facility] Comment on above: Performed By: #### B MP, CMREP, LIPID #### [facility] [address] [place] [address] Dr. Jeimy Tenorio TSHon 09-29-2022 TSH 1.694 uIU/mL Normal 0.358-3.740 [facility] Comment on above: Performed By: #### B MP, CMREP, LIPID #### [facility] [address] [place] [address] Dr. Jeimy Tenorio CARDIAC SAWYER 3-6on 2 CK [Catalytic activity/Vol] 47 U/L Normal 39-308 [facility] Comment on above: Performed By: #### B MP, CMREP, LIPID #### [facility] [address] [place] [address] Dr. Jeimy Tenorio CK.MB [Mass/Vol] 0.77 ng/mL Normal <=3.60 [facility] Comment on above: Performed By: #### B MP, CMREP, LIPID #### [facility] [address] [address] [address] Jeimy Tenorio HSTROP 6.9 pg/mL Normal 4.0-76.1 [facility] Comment on above: Result Comment: CUT- OFF POINTS HAVE BEEN ESTABLISHED BASED ON THE FOURTH UNIVERSAL DEFINITIONS OF MYOCARDIAL INFARCTION. THE UPPER REFERENCE LIMIT (URL) OF TROPONIN, DEFINED THE 99TH PERCENTILE OF cTnI DISTRIBUTION IN A REFERENCE POPULATION, HAS BEEN CONFIRMED THE DECISION THRESHOLD FOR [facility] DIAGNOSIS. Performed By: #### B MP, CMREP, LIPID #### [facility] [address] [address] [address] Jeimy Tenorio CK [Catalytic activity/Vol] 53 U/L Normal 39-308 [facility] Comment on above: Performed By: #### C BC #### [facility] [address] [address] [address] Jeimy Tenorio CK.MB [Mass/Vol] 0.80 ng/mL Normal <=3.60 [facility] Comment on above: Performed By: #### C BC #### [facility] [address] [address] [address] Jeimy Tenorio HSTROP 6.2 pg/mL Normal 4.0-76.1 [facility] Comment on above: Result Comment: CUT- OFF POINTS HAVE BEEN ESTABLISHED BASED ON THE FOURTH UNIVERSAL DEFINITIONS OF MYOCARDIAL INFARCTION. THE UPPER REFERENCE LIMIT (URL) OF TROPONIN, DEFINED THE 99TH PERCENTILE OF cTnI DISTRIBUTION IN A REFERENCE POPULATION, HAS BEEN CONFIRMED THE DECISION THRESHOLD FOR [facility] DIAGNOSIS. Performed By: #### C BC #### [facility] [address] [address] [address] Jeimy Tenorio CBC AUTO DIFFon 06-12-2022 BASO # 0.1 103/ul Normal 0.0-0.1 [facility] Comment on above: Performed By: #### C BC #### [facility] [address] [address] [address] Jeimy Tenorio Basophils/100 WBC (Bld) 0.9 % Normal 0.2-2.0 [facility] Comment on above: Performed By: #### C BC #### [facility] [address] [place] [address] Dr. Jeimy Tenorio EO # 0.3 103/ul Normal 0.0-0.7 [facility] Comment on above: Performed By: #### C BC #### [facility] [address] [place] [address] Dr. Jeimy Tenorio Eosinophils/100 WBC (Bld) 5.2 % Normal 0.9-7.0 [facility] Comment on above: Performed By: #### C BC #### [facility] [address] [place] [address] Dr. Jeimy Tenorio Erythrocyte distribution width (RBC) [Ratio] 13.0 % Normal 11.0-15.0 [facility] Comment on above: Performed By: #### C BC #### [facility] [address] [place] [address] Dr. Jeimy Tenorio Hematocrit (Bld) [Volume fraction] 39.1 % Critically low 42.0-54.0 [facility] Comment on above: Performed By: #### C BC #### [facility] [address] [place] [address] Dr. Jeimy Tenorio Hemoglobin (Bld) [Mass/Vol] 13.2 g/dL Critically low 14.0-18.0 [facility] Comment on above: Performed By: #### C BC #### [facility] [address] [place] [address] Dr. Jeimy Tenorio IG # 0.03 10e3/ul Normal 0.00-0.03 [facility] Comment on above: Performed By: #### C BC #### [facility] [address] [place] [address] Dr. Jeimy Tenorio IG % 0.5 % Normal 0.0-0.5 [facility] Comment on above: Performed By: #### C BC #### [facility] [address] [place] [address] Dr. Jeimy Tenorio LYMPH # 1.7 103/ul Normal 1.2-3.8 [facility] Comment on above: Performed By: #### C BC #### [facility] [address] [place] [address] Dr. Jeimy Tenorio Lymphocytes/100 WBC (Bld) 26.0 % Normal 20.5-60.0 [facility] Comment on above: Performed By: #### C BC #### [facility] [address] [place] [address] Dr. Jeimy Tenorio MANUAL DIFF REQ NO Normal [facility] Comment on above: Performed By: #### C BC #### [facility] [address] [place] [address] Dr. Jeimy Tenorio MCH (RBC) [Entitic mass] 33.2 pg Normal 25.9-34.0 [facility] Comment on above: Performed By: #### C BC #### [facility] [address] [place] [address] Dr. Jeimy Tenorio MCHC (RBC) [Mass/Vol] 33.8 g/dL Normal 29.9-35.2 [facility] Comment on above: Performed By: #### C BC #### [facility] [address] [place] [address] Dr. Jeimy Tenorio MCV (RBC) [Entitic vol] 98.5 fL Critically high 80.0-94.0 [facility] Comment on above: Performed By: #### C BC #### [facility] [address] [place] [address] Dr. Jeimy Tenorio MONO # 0.8 103/ul Normal 0.3-0.8 [facility] Comment on above: Performed By: #### C BC #### [facility] [address] [place] [address] Dr. Jeimy Tenorio Monocytes/100 WBC (Bld) 12.2 % Critically high 1.7-12.0 [facility] Comment on above: Performed By: #### C BC #### [facility] [address] [place] [address] Dr. Jeimy Tenorio NEUT # 3.6 103/ul Normal 1.4-6.5 [facility] Comment on above: Performed By: #### C BC #### [facility] [address] [address] [address] Jeimy Tenorio Neutrophils/100 WBC (Bld) 55.2 % Normal 43.0-75.0 [facility] Comment on above: Performed By: #### C BC #### [facility] [address] [place] [address] Dr. Jeimy Tenorio Platelet mean volume (Bld) [Entitic vol] 9.9 fL Normal 9.5-13.5 [facility] Comment on above: Performed By: #### C BC #### [facility] [address] [address] [address] Jeimy Tenorio PLT 174 103/ul Normal 150-450 [facility] Comment on above: Performed By: #### C BC #### [facility] [address] [place] [address] Dr. Jeimy Tenorio RBC 3.97 106/ul Critically low 4.70-6.10 [facility] Comment on above: Performed By: #### C BC #### [facility] [address] [place] [address] Dr. Jeimy Tenorio WBC 6.5 103/ul Normal 4.0-11.0 [facility] Comment on above: Performed By: #### C BC #### [facility] [address] [place] [address] Dr. Jeimy Tenorio CTA CHEST WO W [...] MAMIE ALFORD Date: 2022-06-12 00:21 Normal [facility] Covid-19 PCR (CVDTB)on 05-22 SARS-CoV-2 (COVID-19) RNA ALEX+probe Ql (Unsp spec) Not detected Normal NOT DETECTED [facility] Comment on above: Result Comment: When [...] for this test is supported by the [place] of Health and Human Service's declaration that [...] By: #### B MP, CMREP, LIPID #### [facility] [address] [address] [address] Jeimy Tenorio ER URINE PROFILEon 2 Bilirubin Ql (U) Negative Normal NEGATIVE [facility] Comment on above: Performed By: #### E RUR #### [facility] [address] [place] [address] Dr. Jeimy Tenorio Clarity (U) CLEAR Normal CLEAR [facility] Comment on above: Performed By: #### E RUR #### [facility] [address] [place] [address] Dr. Jeimy Tenorio Color (U) LT. YELLOW Normal YELLOW [facility] Comment on above: Performed By: #### E RUR #### [facility] [address] [place] [address] Dr. Jeimy BALES A micrscopic examination will be performed if indicated. Normal [facility] Comment on above: Performed By: #### E RUR #### [facility] [address] [place] [address] Dr. Jeimy Tenorio Glucose Ql (U) Negative Normal NEGATIVE [facility] Comment on above: Performed By: #### E RUR #### [facility] [address] [place] [address] Dr. Jeimy Tenorio Hemoglobin Ql (U) Negative Normal NEGATIVE [facility] Comment on above: Performed By: #### E RUR #### [facility] [address] [place] [address] Dr. Jeimy Tenorio Ketones Ql (U) TRACE Abnormal NEGATIVE [facility] Comment on above: Performed By: #### E RUR #### [facility] [address] [place] [address] Dr. Jeimy Tenorio LEUKOCYTES Negative Normal NEGATIVE [facility] Comment on above: Performed By: #### E RUR #### [facility] [address] [place] [address] Dr. Jeimy Tenorio Nitrite Ql (U) Negative Normal NEGATIVE [facility] Comment on above: Performed By: #### E RUR #### [facility] [address] [place] [address] Dr. Jeimy Tenorio pH (U) 5.5 [pH] Normal 5-9 [facility] Comment on above: Performed By: #### E RUR #### [facility] [address] [place] [address] Dr. Jeimy Tenorio SPEC GRAVITY 1.010 Normal 1.005-<=1.025 [facility] Comment on above: Performed By: #### E RUR #### [facility] [address] [place] [address] Dr. Jeimy Tenorio UA PROTEIN Negative Normal NEGATIVE/ TRACE [facility] Comment on above: Performed By: #### E RUR #### [facility] [address] [place] [address] Dr. Jeimy Tenorio UR MICRO IND NOT INDICATED Normal [facility] Comment on above: Performed By: #### E RUR #### [facility] [address] [place] [address] Dr. Jeimy Tenorio Urobilinogen Qn (U) 0.2 {Raphael'U}/dL Normal 0.2 - 1. 0 [facility] Comment on above: Performed By: #### E RUR #### [facility] [address] [place] [address] Dr. Jeimy Tenorio GLYCOHEMOGLOBIN A1Con 2021 ADA RECOMMENDATION SEE BELOW Normal [facility] Comment on above: Result Comment: ADA RECOMMENDED LIMIT 4.0 - 6.0 ADA THERAPEUTIC TARGET < 7.0 ACTION SUGGESTED > 7.0 Performed By: #### C BC #### [facility] [address] [place] [address] Dr. Jeimy Tenorio Glucose [Mass/Vol] 103 mg/dL Normal [facility] Comment on above: Performed By: #### C BC #### [facility] [address] [place] [address] Dr. Jeimy Tenorio HbA1c (Bld) [Mass fraction] 5.2 % Normal 4.5-6.2 [facility] Comment on above: Performed By: #### C BC #### [facility] [address] [place] [address] Dr. Jeimy Tenorio LIPID PROFILEon 06-12-2022 CHOL-HDL RATIO NORM SEE BELOW Normal [facility] Comment on above: Result Comment: 3.3 - 4.4 LOW RISK 4.4 - 7.1 AVERAGE RISK 7.1 - 11.0 MODERATE RISK >11.0 HIGH RISK Performed By: #### B MP, CMREP, LIPID #### [facility] [address] [address] [address] Jeimy Tenorio Cholesterol [Mass/Vol] 142 mg/dL Normal <=200 [facility] Comment on above: Performed By: #### B MP, CMREP, LIPID #### [facility] [address] [address] [address] Jeimy Tenorio Cholesterol in HDL [Mass/Vol] 49 mg/dL Normal 40-60 [facility] Comment on above: Performed By: #### B MP, CMREP, LIPID #### [facility] [address] [place] [address] Dr. Jeimy Tenorio Cholesterol in LDL [Mass/Vol] 64.6 mg/dL Normal [facility] Comment on above: Performed By: #### B MP, CMREP, LIPID #### [facility] [address] [place] [address] Dr. Jeimy Tenorio Cholesterol.total/Ch olesterol in HDL [Mass ratio] 2.9 {ratio} Normal [facility] Comment on above: Performed By: #### B MP, CMREP, LIPID #### [facility] [address] [place] [address] Dr. Jeimy Tenorio HDL NORMAL > or = 60 mg/dl - LO W CARDIOVASCULAR RISK <40 mg/dl - HIGH CARDIOVASCULAR RISK Normal [facility] Comment on above: Performed By: #### B MP, CMREP, LIPID #### [facility] [address] [place] [address] Dr. Jeimy Tenorio LDL CALC NORMAL SEE BELOW Normal [facility] Comment on above: Result Comment: <100 mg/dl OPTIMAL 100 - 129 mg/dl NEAR OR ABOVE OPTIMAL 130 - 159 mg/dl BORDERLINE HIGH 160 - 189 mg/dl HIGH >190 mg/dl VERY HIGH Performed By: #### B MP, CMREP, LIPID #### [facility] [address] [place] [address] Dr. Jeimy Tenorio Triglyceride [Mass/Vol] 142 mg/dL Normal <=150 [facility] Comment on above: Performed By: #### B MP, CMREP, LIPID #### [facility] [address] [address] [address] Jeimy Tenorio VLDL CALC 28.4 mg/dL Normal [facility] Comment on above: Performed By: #### B MP, CMREP, LIPID #### [facility] [address] [place] [address] Dr. Jeimy Tenorio PROF CHEM 8 (BAS METB)on Anion gap [Moles/Vol] 10.1 mmol/L Normal [facility] Comment on above: Performed By: #### B MP, CMREP, LIPID #### [facility] [address] [place] [address] Dr. Jeimy Tenorio Calcium [Mass/Vol] 8.0 mg/dL Critically low 8.5-10.1 [facility] Comment on above: Performed By: #### B MP, CMREP, LIPID #### [facility] [address] [place] [address] Dr. Jeimy Tenorio Chloride [Moles/Vol] 104 mmol/L Normal 98-107 [facility] Comment on above: Performed By: #### B MP, CMREP, LIPID #### [facility] [address] [place] [address] Dr. Jeimy Tenorio CO2 [Moles/Vol] 27.0 mmol/L Normal 21.0-32.0 [facility] Comment on above: Performed By: #### B MP, CMREP, LIPID #### [facility] [address] [place] [address] Dr. Jeimy Tenorio Creatinine [Mass/Vol] 0.79 mg/dL Normal 0.70-1.30 [facility] Comment on above: Performed By: #### B MP, CMREP, LIPID #### [facility] [address] [place] [address] Dr. Jeimy Tenorio EGFR-AF THAI >60 Normal >=60 [facility] Comment on above: Performed By: #### B MP, CMREP, LIPID #### [facility] [address] [place] [address] Dr. Jeimy Tenorio EGFR-NON AF THAI >60 Normal >=60 [facility] Comment on above: Performed By: #### B MP, CMREP, LIPID #### [facility] [address] [address] [address] Jeimy Tenorio Glucose [Mass/Vol] 101 mg/dL Normal 74-106 [facility] Comment on above: Performed By: #### B MP, CMREP, LIPID #### [facility] [address] [address] [address] Jeimy Tenorio Potassium [Moles/Vol] 4.1 mmol/L Normal 3.5-5.1 [facility] Comment on above: Performed By: #### B MP, CMREP, LIPID #### [facility] [address] [place] [address] Dr. Jeimy Tenorio Sodium [Moles/Vol] 137 mmol/L Normal 136-145 [facility] Comment on above: Performed By: #### B MP, CMREP, LIPID #### [facility] [address] [place] [address] Dr. Jeimy Tenorio Urea nitrogen [Mass/Vol] 15.0 mg/dL Normal 7.0-18.0 [facility] Comment on above: Performed By: #### B MP, CMREP, LIPID #### [facility] [address] [place] [address] Dr. Jeimy Tenorio Urea nitrogen/Creatinine [Mass ratio] 19.0 mg/mg Normal [facility] Comment on above: Performed By: #### B MP, CMREP, LIPID #### [facility] [address] [place] [address] Dr. Jeimy Tenorio CARDIAC SAWYER ADMITon 022 CK [Catalytic activity/Vol] 50 U/L Normal 39-308 [facility] Comment on above: Performed By: #### C BC #### [facility] [address] [place] [address] Dr. Jeimy Tenorio CK.MB [Mass/Vol] 0.80 ng/mL Normal <=3.60 [facility] Comment on above: Performed By: #### C BC #### [facility] [address] [place] [address] Dr. Jeimy Tenorio HSTROP 5.2 pg/mL Normal 4.0-76.1 [facility] Comment on above: Result Comment: CUT- OFF POINTS HAVE BEEN ESTABLISHED BASED ON THE FOURTH UNIVERSAL DEFINITIONS OF MYOCARDIAL INFARCTION. THE UPPER REFERENCE LIMIT (URL) OF TROPONIN, DEFINED THE 99TH PERCENTILE OF cTnI DISTRIBUTION IN A REFERENCE POPULATION, HAS BEEN CONFIRMED THE DECISION THRESHOLD FOR VA DIAGNOSIS. Performed By: #### C BC #### [facility] [address] [place] [address] Dr. Jeimy Tenorio MAGALIE 41 ng/mL Normal 16-96 [facility] Comment on above: Performed By: #### C BC #### [facility] [address] [place] [address] Dr. Jeimy Tenorio CBC AUTO DIFFon 06-11-2022 BASO # 0.0 103/ul Normal 0.0-0.1 [facility] Comment on above: Performed By: #### C BC #### [facility] [address] [place] [address] Dr. Jeimy Tenorio Basophils/100 WBC (Bld) 0.6 % Normal 0.2-2.0 [facility] Comment on above: Performed By: #### C BC #### [facility] [address] [place] [address] Dr. Jeimy Tenorio EO # 0.4 103/ul Normal 0.0-0.7 [facility] Comment on above: Performed By: #### C BC #### [facility] [address] [place] [address] Dr. Jeimy Tenorio Eosinophils/100 WBC (Bld) 4.9 % Normal 0.9-7.0 [facility] Comment on above: Performed By: #### C BC #### [facility] [address] [place] [address] Dr. Jeimy Tenorio Erythrocyte distribution width (RBC) [Ratio] 13.1 % Normal 11.0-15.0 [facility] Comment on above: Performed By: #### C BC #### [facility] [address] [place] [address] Dr. Jeimy Tenorio Hematocrit (Bld) [Volume fraction] 38.1 % Critically low 42.0-54.0 [facility] Comment on above: Performed By: #### C BC #### [facility] [address] [place] [address] Dr. Jeimy Tenorio Hemoglobin (Bld) [Mass/Vol] 13.0 g/dL Critically low 14.0-18.0 [facility] Comment on above: Performed By: #### C BC #### [facility] [address] [place] [address] Dr. Jeimy Tenorio IG # 0.02 10e3/ul Normal 0.00-0.03 [facility] Comment on above: Performed By: #### C BC #### [facility] [address] [place] [address] Dr. Jeimy Tenorio IG % 0.3 % Normal 0.0-0.5 [facility] Comment on above: Performed By: #### C BC #### [facility] [address] [place] [address] Dr. Jeimy Tenorio LYMPH # 1.7 103/ul Normal 1.2-3.8 [facility] Comment on above: Performed By: #### C BC #### [facility] [address] [place] [address] Dr. Jeimy Tenorio Lymphocytes/100 WBC (Bld) 22.9 % Normal 20.5-60.0 [facility] Comment on above: Performed By: #### C BC #### [facility] [address] [place] [address] Dr. Jeimy Tenorio MANUAL DIFF REQ NO Normal [facility] Comment on above: Performed By: #### C BC #### [facility] [address] [place] [address] Dr. Jeimy Tenorio MCH (RBC) [Entitic mass] 33.5 pg Normal 25.9-34.0 [facility] Comment on above: Performed By: #### C BC #### [facility] [address] [place] [address] Dr. Jeimy Tenorio MCHC (RBC) [Mass/Vol] 34.1 g/dL Normal 29.9-35.2 [facility] Comment on above: Performed By: #### C BC #### [facility] [address] [place] [address] Dr. Jeimy Tenorio MCV (RBC) [Entitic vol] 98.2 fL Critically high 80.0-94.0 [facility] Comment on above: Performed By: #### C BC #### [facility] [address] [place] [address] Dr. Jeimy Tenorio MONO # 0.8 103/ul Normal 0.3-0.8 [facility] Comment on above: Performed By: #### C BC #### [facility] [address] [place] [address] Dr. Jeimy Tenorio Monocytes/100 WBC (Bld) 11.5 % Normal 1.7-12.0 [facility] Comment on above: Performed By: #### C BC #### [facility] [address] [place] [address] Dr. Jeimy Tenorio NEUT # 4.3 103/ul Normal 1.4-6.5 [facility] Comment on above: Performed By: #### C BC #### [facility] [address] [place] [address] Dr. Jeimy Tenorio Neutrophils/100 WBC (Bld) 59.8 % Normal 43.0-75.0 [facility] Comment on above: Performed By: #### C BC #### [facility] [address] [place] [address] Dr. Jeimy Tenorio Platelet mean volume (Bld) [Entitic vol] 9.8 fL Normal 9.5-13.5 [facility] Comment on above: Performed By: #### C BC #### [facility] [address] [place] [address] Dr. Jeimy Tenorio PLT 181 103/ul Normal 150-450 [facility] Comment on above: Performed By: #### C BC #### [facility] [address] [place] [address] Dr. Jeimy Tenorio RBC 3.88 106/ul Critically low 4.70-6.10 [facility] Comment on above: Performed By: #### C BC #### [facility] [address] [place] [address] Dr. Jeimy Tenorio WBC 7.2 103/ul Normal 4.0-11.0 [facility] Comment on above: Performed By: #### C BC #### [facility] [address] [place] [address] Dr. Jeimy Tenorio D-DIMERon 06-11-2022 D-DIMER 0.63 mg/L FEU Critically high <=0.59 [facility] Comment on above: Performed By: #### D DIM #### [facility] [address] [place] [address] Dr. Jeimy Tenorio D-DIMER COMMENTS SEE BELOW Normal [facility] Comment on above: Result Comment: Incr eases [...] hospitalization. Performed By: #### D DIM #### [facility] [address] [place] [address] Dr. Jeimy Tenorio PROF 14(COMP METB)on 022 Albumin [Mass/Vol] 3.3 g/dL Critically low 3.4-5.0 [facility] Comment on above: Performed By: #### C BC #### [facility] [address] [place] [address] Dr. Jeimy Tenorio Albumin/Globulin [Mass ratio] 0.8 {ratio} Normal [facility] Comment on above: Performed By: #### C BC #### [facility] [address] [place] [address] Dr. Jeimy Tenorio ALP [Catalytic activity/Vol] 160 U/L Critically high 46-116 [facility] Comment on above: Performed By: #### C BC #### [facility] [address] [address] [address] Jeimy Tenorio ALT [Catalytic activity/Vol] 26 U/L Normal 16-63 [facility] Comment on above: Performed By: #### C BC #### [facility] [address] [address] [address] Jeimy Tenorio Anion gap [Moles/Vol] 10.4 mmol/L Normal [facility] Comment on above: Performed By: #### C BC #### [facility] [address] [address] [address] Jeimy Tenorio AST [Catalytic activity/Vol] 16 U/L Normal 15-37 [facility] Comment on above: Performed By: #### C BC #### [facility] [address] [place] [address] Dr. Jeimy Tenorio Bilirubin [Mass/Vol] 0.2 mg/dL Normal 0.2-1.0 [facility] Comment on above: Performed By: #### C BC #### [facility] [address] [place] [address] Dr. Jeimy Tenorio Calcium [Mass/Vol] 8.2 mg/dL Critically low 8.5-10.1 [facility] Comment on above: Performed By: #### C BC #### [facility] [address] [place] [address] Dr. Jeimy Tenorio Chloride [Moles/Vol] 105 mmol/L Normal 98-107 [facility] Comment on above: Performed By: #### C BC #### [facility] [address] [place] [address] Dr. Jeimy Tenorio CO2 [Moles/Vol] 26.5 mmol/L Normal 21.0-32.0 [facility] Comment on above: Performed By: #### C BC #### [facility] [address] [place] [address] Dr. Jeimy Tenorio Creatinine [Mass/Vol] 0.96 mg/dL Normal 0.70-1.30 [facility] Comment on above: Performed By: #### C BC #### [facility] [address] [address] [address] Jeimy Tenorio EGFR-AF THAI >60 Normal >=60 [facility] Comment on above: Performed By: #### C BC #### [facility] [address] [address] [address] Jeimy Tenorio EGFR-NON AF THAI >60 Normal >=60 [facility] Comment on above: Performed By: #### C BC #### [facility] [address] [address] [address] Jeimy Tenorio Globulin (S) [Mass/Vol] 4.0 g/dL Normal [facility] Comment on above: Performed By: #### C BC #### [facility] [address] [address] [address] Jeimy Tenorio Glucose [Mass/Vol] 140 mg/dL Critically high 74-106 [facility] Comment on above: Performed By: #### C BC #### [facility] [address] [place] [address] Dr. Jeimy Tenorio Potassium [Moles/Vol] 3.9 mmol/L Normal 3.5-5.1 [facility] Comment on above: Performed By: #### C BC #### [facility] [address] [place] [address] Dr. Jeimy Tenorio Protein [Mass/Vol] 7.3 g/dL Normal 6.4-8.2 [facility] Comment on above: Performed By: #### C BC #### [facility] [address] [place] [address] Dr. Jeimy Tenorio Sodium [Moles/Vol] 138 mmol/L Normal 136-145 [facility] Comment on above: Performed By: #### C BC #### [facility] [address] [place] [address] Dr. Jeimy Tenorio Urea nitrogen [Mass/Vol] 15.0 mg/dL Normal 7.0-18.0 [facility] Comment on above: Performed By: #### C BC #### [facility] [address] [place] [address] Dr. Jeimy Tenorio Urea nitrogen/Creatinine [Mass ratio] 15.6 mg/mg Normal [facility] Comment on above: Performed By: #### C #### [facility] [address] [address] [address] Jeimy Tenorio [facility] 10-30-2021 Albumin [Mass/Vol] 4.3 g/dL Normal 3.6-5.1 [facility] Comment on above: Performed By: #### 7 13, 7600, 85024 #### [facility] [address] [place] [address] Fire Prevention Chief: Yash Campuzano MD Albumin/Globulin [Mass ratio] 1.3 {ratio} Normal 1.0-2.5 [facility] Comment on above: Performed By: #### 7 13, 0, 86857 #### [facility] [address] [place] [address] Fire Prevention Chief: Yash Campuzano MD ALP [Catalytic activity/Vol] 152 U/L High 35-144 [facility] Comment on above: Performed By: #### 7 13, 0, 24808 #### [facility] [place] [address] Fire Prevention Chief: Yash Campuzano MD ALT [Catalytic activity/Vol] 30 U/L Normal 9-46 [facility] Comment on above: Performed By: #### 7 13, 0, 81341 #### [facility] [place] [address] Fire Prevention Chief: Yash Campuzano MD AST [Catalytic activity/Vol] 26 U/L Normal 10-35 [facility] Comment on above: Performed By: #### 7 13, 7600, 67320 #### [facility] [place] [address] Fire Prevention Chief: Yash Campuzano MD Bilirubin [Mass/Vol] 0.4 mg/dL Normal 0.2-1.2 [facility] Comment on above: Performed By: #### 7 13, 7600, 18527 #### [facility] of [address] [place] [address] Fire Prevention Chief: Yash Campuzano MD BUN/CREATININE RATIO NOT APPLICABLE Normal 6-22 [facility] Comment on above: Performed By: #### 7 13, 7600, 90184 #### [facility] of [address], [address] [place] [address] Fire Prevention Chief: Yash Campuzano MD Calcium [Mass/Vol] 8.8 mg/dL Normal 8.6-10.3 [facility] Comment on above: Performed By: #### 7 13, 7600, 34957 #### [facility] [address], [address] [place] [address] Fire Prevention Chief: Yash Campuzano MD Chloride [Moles/Vol] 104 mmol/L Normal 98-110 [facility] Comment on above: Performed By: #### 7 13, 7599, 60401 #### [facility] [address], [address] [place] [address] Fire Prevention Chief: Yash Campuzano MD CO2 [Moles/Vol] 25 mmol/L Normal 20-32 [facility] Comment on above: Performed By: #### 7 13, 7599, 46666 #### [facility] of [address], [address] [place] [address] Fire Prevention Chief: Yash Campuzano MD Creatinine [Mass/Vol] 0.76 mg/dL Normal 0.70-1.25 [facility] Comment on above: Result Comment: For patients >49 years of age, the reference limit for Creatinine is approximately 13% higher for people identified as -Japanese. Performed By: #### 7 13, 7599, 65858 #### [facility] of [address], [address] [place] [address] Fire Prevention Chief: Yash Campuzano MD eGFR NON-AFR. THAI 95 mL/min/1.73m2 Normal > OR = 60 [facility] Comment on above: Performed By: #### 7 , 7600, 66517 #### [facility] [address], [address] [place] [address] Fire Prevention Chief: Yash Campuzano MD GFR/1.73 sq M.predicted among blacks MDRD (S/P/Bld) [Vol rate/Area] 110 mL/min/{1.73_m2} Normal > OR = 60 [facility] Comment on above: Performed By: #### 7 , 7599, 94836 #### [facility] [address] [place] [address] Fire Prevention Chief: Yash Campuzano MD Globulin (S) [Mass/Vol] 3.2 g/dL Normal 1.9-3.7 [facility] Comment on above: Performed By: #### 7 , 7599, 47027 #### [facility] [place] [address] Fire Prevention Chief: Yash Campuzano MD Glucose [Mass/Vol] 103 mg/dL High 65-99 [facility] Comment on above: Result Comment: Fasting reference interval For someone without known diabetes, a glucose value between 100 and 125 mg/dL is consistent with prediabetes and should be confirmed with a follow-up test. Performed By: #### 7 , 7599, 44065 #### [facility] [place] [address] Fire Prevention Chief: Yash Campuzano MD Potassium [Moles/Vol] 4.7 mmol/L Normal 3.5-5.3 [facility] Comment on above: Performed By: #### 7 , 7599, 93909 #### [facility] [place] [address] Fire Prevention Chief: Yash Campuzano MD Protein [Mass/Vol] 7.5 g/dL Normal 6.1-8.1 [facility] Comment on above: Performed By: #### 7 , 7599, 21958 #### [facility] [place] [address] Fire Prevention Chief: Yash Campuzano MD Sodium [Moles/Vol] 137 mmol/L Normal 135-146 [facility] Comment on above: Performed By: #### 7 , 7600, 16444 #### [facility] [address], [address] [place], [place] [address] Fire Prevention Chief: Yash Campuzano MD Urea nitrogen [Mass/Vol] 15 mg/dL Normal 7-25 [facility] Comment on above: Performed By: #### 7 13, 7600, 40293 #### [facility] [address], [address] [place], [place] [address] Fire Prevention Chief: Yash Campuzano MD LIPID PANEL, [facility] 12-1 Cholesterol [Mass/Vol] 180 mg/dL Normal <200 [facility] Comment on above: Order Comment: FASTI NG:YES FASTING: YES Performed By: #### 7 13, 7600, 61005 #### [facility] [address], [address] [place] [address] Fire Prevention Chief: Yash Campuzano MD Cholesterol in HDL [Mass/Vol] 50 mg/dL Normal > OR = 40 [facility] Comment on above: Order Comment: FASTI NG:YES FASTING: YES Performed By: #### 7 13, 7600, 70454 #### [facility] [address], [address] [place] [address] Fire Prevention Chief: Yash Campuzano MD Cholesterol in LDL [Mass/Vol] [...] LDL-C. Gennaro SS et al. KO. 2013;310(19): 3452-0676 (http://education.[employer]/faq/VYH948) Performed By: #### 7 13, 7600, 81895 #### [facility] [address], [address] [place], [place] [address] Fire Prevention Chief: Yash Campuzano MD Cholesterol.total/Ch olesterol in HDL [Mass ratio] 3.6 {ratio} Normal <5.0 [facility] Comment on above: Order Comment: FASTI NG:YES FASTING: YES Performed By: #### 7 , 7599, 29956 #### [facility] [address], [address] [place] [address] Fire Prevention Chief: Yash Campuzano MD NON HDL CHOLESTEROL 130 mg/dL (calc) High <130 [facility] Comment on above: Order Comment: FASTI NG:YES FASTING: YES Result Comment: For patients with diabetes plus 1 major ASCVD risk factor, treating to a non-HDL-C goal of <100 mg/dL (LDL-C of <70 mg/dL) is considered a therapeutic option. Performed By: #### 7 , 7599, 17903 #### [facility] [place] [address] Fire Prevention Chief: Yash Campuzano MD Triglyceride [Mass/Vol] 280 mg/dL High <150 [facility] Comment on above: Order Comment: FASTI NG:YES FASTING: YES Result Comment: If a non-fasting specimen was collected, consider repeat triglyceride testing on a fasting specimen if clinically indicated. Camarillo et al. J. of Clin. Lipidol. 2015;9:129-169. Performed By: #### 7 , 7599, 53769 #### [facility] [place] [address] Fire Prevention Chief: Yash Campuzano MD PHENYTOINon 10-30-2021 Phenytoin [Mass/Vol] 18.9 ug/mL Normal 10.0-20.0 [facility] Comment on above: Performed By: #### 7 , 7599, 78978 #### [facility] [place] [address] Fire Prevention Chief: Yash Campuzano MD CBC (INCLUDES DIFF/PLT)on Basophils (Bld) [#/Vol] 0.071 10*3/uL Normal 0-200 [facility] Comment on above: Performed By: #### 7 , 269, 6399 #### [facility] of [address], [address] [place] [address] Fire Prevention Chief: Yash Campuzano MD Basophils/100 WBC (Bld) 1.2 % Normal [facility] Comment on above: Performed By: #### 7 , 760, 6399 #### [facility] of [address], [address] [place] [address] Fire Prevention Chief: Yash Campuzano MD Eosinophils (Bld) [#/Vol] 0.277 10*3/uL Normal 15-500 [facility] Comment on above: Performed By: #### 7 , 7599, 6399 #### [facility] of [address], [address] [place] [address] Fire Prevention Chief: Yash Campuzano MD Eosinophils/100 WBC (Bld) 4.7 % Normal [facility] Comment on above: Performed By: #### 7 , 7599, 6399 #### [facility] of [address], [address] [place] [address] Fire Prevention Chief: Yash Campuzano MD Erythrocyte distribution width (RBC) [Ratio] 12.8 % Normal 11.0-15.0 [facility] Comment on above: Performed By: #### 7 , 7599, 6399 #### [facility] of [place] [address] Fire Prevention Chief: Yash Campuzano MD Hematocrit (Bld) [Volume fraction] 42.1 % Normal 38.5-50.0 [facility] Comment on above: Performed By: #### 7 , 7599, 6399 #### [facility] of [address], [address] [place] [address] Fire Prevention Chief: Yash Campuzano MD Hemoglobin (Bld) [Mass/Vol] 14.9 g/dL Normal 13.2-17.1 [facility] Comment on above: Performed By: #### 7 , 7599, 6399 #### [facility] of [place] [address] Fire Prevention Chief: Yash Campuzano MD Lymphocytes (Bld) [#/Vol] 1.068 10*3/uL Normal 850-3900 [facility] Comment on above: Performed By: #### 7 13, 7599, 6399 #### [facility] of [place] [address] Fire Prevention Chief: Yash Campuzano MD Lymphocytes/100 WBC (Bld) 18.1 % Normal [facility] Comment on above: Performed By: #### 7 , 7599, 6399 #### [facility] of [place] [address] Fire Prevention Chief: Yash Campuzano MD MCH (RBC) [Entitic mass] 32.9 pg Normal 27.0-33.0 [facility] Comment on above: Performed By: #### 7 , 7599, 6399 #### [facility] [place] [address] Fire Prevention Chief: Yash Campuzano MD MCHC (RBC) [Mass/Vol] 35.4 g/dL Normal 32.0-36.0 [facility] Comment on above: Performed By: #### 7 , 7599, 6399 #### [facility] [place] [address] Fire Prevention Chief: Yash Campuzano MD MCV (RBC) [Entitic vol] 92.9 fL Normal 80.0-100.0 [facility] Comment on above: Performed By: #### 7 , 7599, 6399 #### [facility] of [place] [address] Fire Prevention Chief: Yash Campuzano MD Monocytes (Bld) [#/Vol] 0.531 10*3/uL Normal 200-950 [facility] Comment on above: Performed By: #### 7 , 7599, 6399 #### [facility] [place] [address] Fire Prevention Chief: Yash Campuzano MD Monocytes/100 WBC (Bld) 9.0 % Normal [facility] Comment on above: Performed By: #### 7 13, 7599, 6399 #### [facility] of [address], [address] [place] [address] Fire Prevention Chief: Yash Campuzano MD Neutrophils (Bld) [#/Vol] 3.953 10*3/uL Normal 2274-0420 [facility] Comment on above: Performed By: #### 7 13, 7599, 6399 #### [facility] of [address], [address] [place] [address] Fire Prevention Chief: Yash Campuzano MD Neutrophils/100 WBC (Bld) 67 % Normal [facility] Comment on above: Performed By: #### 7 13, 7599, 6399 #### [facility] of [place] [address] Fire Prevention Chief: Yash Campuzano MD Platelet mean volume (Bld) [Entitic vol] 11.0 fL Normal 7.5-12.5 [facility] Comment on above: Performed By: #### 7 13, 7599, 6399 #### [facility] of [place] [address] Fire Prevention Chief: Yash Campuzano MD Platelets (Bld) [#/Vol] 200 10*3/uL Normal 140-400 [facility] Comment on above: Performed By: #### 7 13, 7599, 6399 #### [facility] of [place] [address] Fire Prevention Chief: Yash Campuzano MD RBC (Bld) [#/Vol] 4.53 10*6/uL Normal 4.20-5.80 [facility] Comment on above: Performed By: #### 7 13, 7599, 6399 #### [facility] of [place] [address] Fire Prevention Chief: Yash Campuzano MD WBC (Bld) [#/Vol] 5.9 10*3/uL Normal 3.8-10.8 [facility] Comment on above: Performed By: #### 7 13, 7599, 6399 #### [facility] [address], [address] [place] [address] Fire Prevention Chief: Yash Campuzano MD LIPID PANEL, [facility] 03-22 Cholesterol [Mass/Vol] 218 mg/dL High <200 [facility] Comment on above: Order Comment: FASTI NG:YES FASTING: YES Performed By: #### 7 , 514, 9722 #### [facility] [address], [address] [place] [address] Fire Prevention Chief: Yash Campuzano MD Cholesterol in HDL [Mass/Vol] 55 mg/dL Normal > OR = 40 [facility] Comment on above: Order Comment: FASTI NG:YES FASTING: YES Performed By: #### 7 , 013, 8644 #### [facility] [address], [address] [place] [address] Fire Prevention Chief: Yash Campuzano MD Cholesterol in LDL [Mass/Vol] [...] LDL-C. Gennaro ALMANZAR et al. KO. 2013;310(19): 5405-2574 (http://education.[employer]/faq/CHG308) Performed By: #### 7 , 479, 6699 #### [facility] [address], [address] [place] [address] Fire Prevention Chief: Yash Campuzano MD Cholesterol.total/Ch olesterol in HDL [Mass ratio] 4.0 {ratio} Normal <5.0 [facility] Comment on above: Order Comment: FASTI NG:YES FASTING: YES Performed By: #### 7 , 857, 4559 #### [facility] of [place] [address] [place] [address] Fire Prevention Chief: Yash Campuzano MD NON HDL CHOLESTEROL 163 mg/dL (calc) High <130 [facility] Comment on above: Order Comment: FASTI NG:YES FASTING: YES Result Comment: For patients with diabetes plus 1 major ASCVD risk factor, treating to a non-HDL-C goal of <100 mg/dL (LDL-C of <70 mg/dL) is considered a therapeutic option. Performed By: #### 7 , 866, 9989 #### [facility] [place] [address] Fire Prevention Chief: Yash Campuzano MD Triglyceride [Mass/Vol] 200 mg/dL High <150 [facility] Comment on above: Order Comment: FASTI NG:YES FASTING: YES Result Comment: If a non-fasting specimen was collected, consider repeat triglyceride testing on a fasting specimen if clinically indicated. Marquise et al. J. of Clin. Lipidol. 2015;9:129-169. Performed By: #### 7 , 168, 0001 #### [facility] [place] [address] Fire Prevention Chief: Yash Campuzano MD PHENYTOINon 04-18-2021 Phenytoin [Mass/Vol] 25.0 ug/mL High 10.0-20.0 [facility] Comment on above: Performed By: #### 7 , 658, 6529 #### [facility] [place] [address] Fire Prevention Chief: Yash Campuzano MD APTTon 11-20-2020 aPTT Coag (Bld) [Time] 33.4 s Normal 25.0-35.0 [facility] Comment on above: Result Comment: ALL [...] FOR THIS PURPOSE. Performed By: #### 5 5531, 81082 ####[facility] BNP EDon 11-20-2020 Natriuretic peptide B (Bld) [Mass/Vol] 111 pg/mL High 0-100 [facility] Comment on above: Result Comment: Give n the appropriate clinical setting a BNP result of >100 pg/mL indicates congestive heart failure. Performed By: #### 3 0935 #### [facility] [address] CBC W/DIFFon 11-20-2020 ABS IMM GRANS 0.0 10*3/uL Normal 0.0-0.2 [facility] Comment on above: Performed By: #### 5 0103 ####[facility] [address] ABS NEUTROPHILS 3.9 10*3/uL Normal 1.6-7.[address] [facility] Comment on above: Performed By: #### 5 0103 ####[facility] [place] [address], [facility] Basophils (Bld) [#/Vol] 0.1 10*3/uL Normal 0.0-0.2 [facility] Comment on above: Performed By: #### 5 0103 ####[facility] [place] [address], [facility] Basophils/100 WBC (Bld) 1.0 % Normal 0.0-1.0 [facility] Comment on above: Performed By: #### 5 0103 ####[facility] [place] [address], [facility] Eosinophils (Bld) [#/Vol] 0.3 10*3/uL Normal 0.0-0.5 [facility] Comment on above: Performed By: #### 5 0103 ####[facility] [place] [address], [place] Eosinophils/100 WBC (Bld) 5.1 % Normal 0.0-6.0 [facility] Comment on above: Performed By: #### 5 0103 ####[facility] [address] Erythrocyte distribution width (RBC) [Ratio] 13.1 % Normal 11.5-15.0 [facility] Comment on above: Performed By: #### 5 0103 ####[facility] [address] Hematocrit (Bld) [Volume fraction] 45.4 % Normal 39.0-50.0 [facility] Comment on above: Performed By: #### 3 ####[address] Hemoglobin (Bld) [Mass/Vol] 14.8 g/dL Normal 13.0-17.0 [facility] Comment on above: Performed By: #### 3 ####[address] IMMATURE GRANS 0.3 % Normal 0.0-1.0 [facility] Comment on above: Performed By: #### 3 ####[facility] Lymphocytes (Bld) [#/Vol] 1.0 10*3/uL Low 1.2-4.0 [facility] Comment on above: Performed By: #### 5 0103 ####[place] [address] [address] Lymphocytes/100 WBC (Bld) 17.5 % Low 20.0-45.0 [facility] Comment on above: Performed By: #### 5 3 ####[place] [address], [place] MCH (RBC) [Entitic mass] 32.5 pg Normal 27.0-33.0 [facility] Comment on above: Performed By: #### 5 0103 ####[facility] [address] MCHC (RBC) [Mass/Vol] 32.6 g/dL Normal 32.0-35.0 [facility] Comment on above: Performed By: #### 5 0103 ####[facility] MCV (RBC) [Entitic vol] 99.6 fL High 82.0-98.0 [facility] Comment on above: Performed By: #### 5 0103 ####[facility] [address] Monocytes (Bld) [#/Vol] 0.6 10*3/uL Normal 0.1-1.0 [facility] Comment on above: Performed By: #### 5 0103 ####[facility] [address] MONOS 9.4 % Normal 5.0-12.0 [facility] Comment on above: Performed By: #### 5 0103 ####[facility] [address] Neutrophils/100 WBC (Bld) 66.7 % Normal 40.0-72.0 [facility] Comment on above: Performed By: #### 5 0103 ####[facility] [address] Nucleated RBC/100 WBC (Bld) [Ratio] 0 % Normal 0-0 [facility] Comment on above: Performed By: #### 5 3 ####[facility] [address] PLAT CNT 175 10*3/uL Normal 150-400 [facility] Comment on above: Performed By: #### 5 0103 ####[facility] [address] RBC (Bld) [#/Vol] 4.56 10*6/uL Normal 4.20-5.70 [facility] Comment on above: Performed By: #### 5 0103 ####[facility] [address] WBC (Bld) [#/Vol] 5.88 10*3/uL Normal 4.00-10.60 [facility] Comment on above: Performed By: #### 5 0103 ####[facility] [address] COMP METABOLIC PANELon 11-20 Albumin [Mass/Vol] 4.0 g/dL Normal 3.5-5.7 [facility] Comment on above: Performed By: #### 0 0121, 07957, 71714, 76089 #### [facility] [address] ALKALINE PHOSPH 130 IU/L High 34-104 [facility] Comment on above: Performed By: #### 0 0121, 54820, 51284, 63400 #### [facility] [address] [facility]. [address] ALT [Catalytic activity/Vol] 18 U/L Normal 7-52 [facility] Comment on above: Performed By: #### 0 0121, 55733, 81945, 32124 #### [facility] 3000 [facility]. [address] AST [Catalytic activity/Vol] 19 U/L Normal 13-39 [facility] Comment on above: Performed By: #### 0 0121, 11991, 09796, 71210 #### [facility] [address] [place] [address], [place] Bilirubin [Mass/Vol] 0.4 mg/dL Normal 0.3-1.0 [facility] Comment on above: Performed By: #### 0 0121, 33175, 48414, 01748 #### [facility] [address] [place] [address], [place] Calcium [Mass/Vol] 9.0 mg/dL Normal 8.6-10.3 [facility] Comment on above: Performed By: #### 0 0121, 86169, 36250, 15141 #### [facility] [address] [place] [address], [place] Chloride [Moles/Vol] 103 mmol/L Normal 98-107 [facility] Comment on above: Performed By: #### 0 0121, 08413, 49618, 74276 #### [facility] [address] [place] [address], [place] CO2 [Moles/Vol] 28 mmol/L Normal 21-31 [facility] Comment on above: Performed By: #### 0 0121, 03417, 25974, 68672 #### [facility] [address] [place] [address], [place] Creatinine [Mass/Vol] 0.77 mg/dL Normal 0.70-1.30 [facility] Comment on above: Performed By: #### 0 0121, 99131, 36089, 83681 #### [facility] [address] [place] [address], [place] GFR/1.73 sq M.predicted among blacks MDRD (S/P/Bld) [Vol rate/Area] mL/min/{1.73_m2} Normal >60 [facility] Comment on above: Performed By: #### 0 0121, 49700, 86593, 37460 #### [facility] [address] [place] [address], [facility] GFR/1.73 sq M.predicted among non-blacks MDRD (S/P/Bld) [Vol rate/Area] mL/min/{1.73_m2} Normal >60 [facility] Comment on above: Performed By: #### 0 0121, 62662, 34070, 89912 #### [facility] [address] [place] [address], [place] Glucose [Mass/Vol] 88 mg/dL Normal 70-100 [facility] Comment on above: Performed By: #### 0 0121, 39170, 52723, 28334 #### [facility] [address] [place] [address], [facility] Potassium [Moles/Vol] 4.9 mmol/L Normal 3.5-5.1 [facility] Comment on above: Performed By: #### 0 0121, 97341, 16856, 78685 #### [facility] [address] [place] [address], [facility] Protein [Mass/Vol] 7.3 g/dL Normal 6.0-8.3 [facility] Comment on above: Performed By: #### 0 0121, 95302, 92400, 56812 #### [facility] [address] [place] [address], [place] Sodium [Moles/Vol] 138 mmol/L Normal 136-145 [facility] Comment on above: Performed By: #### 0 0121, 77377, 26196, 47052 #### [facility] [address] [place] [address], [place] Urea nitrogen [Mass/Vol] 15 mg/dL Normal 7-25 [facility] Comment on above: Performed By: #### 0 0121, 60583, 42153, 93047 #### [facility] [address] [place] [address], [place] CTA HEADon 11-20-2020 CTA HEAD [facility] Department of Radiology [address] [place] [address] Patient Name: NAZARIO CORTES : 1955 Sex: M Age: Race: White Pt. Location: [facility] Patient Status: E Ordered Date: 11/20/2020 [...] stenosis of the major vessels of the [place]. origin of bilateral posterior cerebral arteries. IMPRESSION: Normal CTA of the brain. All CT scans at this facility use dose modulation, iterative reconstruction, and/or weight based dosing when appropriate to reduce radiation dose to as low as reasonably achievable. Electronically signed: Dhaval Bain. Transcribed by: [email or web address], User Resident: Electronically Signed by: DHAVAL BAIN @ 11/20/2020 12:58 PM Normal [facility] Comment on above: Order Comment: Bleed CTA NECKon 11-20-2020 CTA NECK [facility] Department of Radiology [address] [place] [id number] Patient Name: NAZARIO CORTES : 1955 Sex: M Age: Race: White Pt. Location: [facility] Patient Status: E Ordered Date: 11/20/2020 [...] viewed on a separate workstation. The [place] Symptomatic Carotid Endarterectomy Trial (NASCET) method for [...] achievable Electronically signed: Dhaval Bain. Transcribed by: [email or web address], User Resident: Electronically Signed by: DHAVAL BAIN @ 11/20/2020 12:57 PM Normal [facility] DIRECT BILIon 11-20-2020 Bilirubin.direct [Mass/Vol] 0.1 mg/dL Normal 0.0-0.2 [facility] Comment on above: Order Comment: Liver Battery conflicts with Comprehensive Metabolic Panel. Liver Battery canceled and Direct Bilirubin added. Performed By: #### 0 0121, 58706, 81542, 19947 #### [facility] [address] [facility] [address] LIPASE BLOODon 11-20-2020 LIPASE 27 Units/L Normal 11-82 [facility] Comment on above: Performed By: #### 0 0121, 50631, 00221, 84535 #### [facility] [address] POC SARS COV2 ANTIGEN NEGATI VEon 11-20-2020 POC SARS COV2 ANTIGEN N Negative Normal NEGATIVE [facility] Comment on above: Result Comment: Test performed on [employer] System for rapid detection of SARS-CoV-2. Negative [...] management. Performed By: #### 3 1919 #### [facility] [address] [place] [address], [facility] PORTABLE CHEST 1 VIEWon PORTABLE CHEST 1 VIEW [facility] Department of Radiology [address] [place] [id number] Patient Name: NAZARIO CORTES : 1955 Sex: M Age: Race: White Pt. Location: [facility] Patient Status: E Ordered Date: 11/20/2020 [...] reports Electronically signed: Dhaval Bain. Transcribed by: [email or web address], User Resident: JESSENIA ALFORD Electronically Signed by: DHAVAL BAIN @ 11/20/2020 12:32 PM I personally read this/these film(s) with this resident Normal [facility] Comment on above: Order Comment: evalu ate for Pneumonia PROTHROMBIN TIMEon 0 INR Coag (PPP) [Relative time] 0.95 {INR} Normal 0.91-1.16 [facility] Comment on above: Result Comment: ACCC [...] CHEST 1995;108:231S-246S. Performed By: #### 5 6101, 15655 ####[facility] [place] [address], [facility] PT Coag (PPP) [Time] 12.7 s Normal 12.3-14.8 [facility] Comment on above: Result Comment: ALL RESULTS MUST BE INTERPRETED WITH RESPECT TO BLOOD DRAWING ARTIFACT OR DILUTION ERROR OF ANTICOAGULANT AT THE TIME OF SAMPLING. Performed By: #### 5 6101, 51856 ####[facility] TROPONIN-Ion 11-20-2020 Troponin I.cardiac [Mass/Vol] 0.00 ng/mL Normal 0.00-0.04 [facility] Comment on above: Order Comment: No: D o not add to previous draw Result Comment: REFE RENCE RANGES: 0.00 - 0.14 ng/ml NEGATIVE 0.15 - 0.25 ng/ml INDETERMINATE > 0.25 ng/ml INDICATIVE OF AN M.I. Performed By: #### 3 5200 #### [facility] [address] Troponin I.cardiac [Mass/Vol] 0.00 ng/mL Normal 0.00-0.04 [facility] Comment on above: Result Comment: REFE RENCE RANGES: 0.00 - 0.14 ng/ml NEGATIVE 0.15 - 0.25 ng/ml INDETERMINATE > 0.25 ng/ml INDICATIVE OF AN M.I. Performed By: #### 0 0121, 05127, 61651, 54311 #### [facility] [address] Vital Signs Date Time Vital Sign Value Performing Clinician Facility 05-15-2024 15:36-0400 Body height 185.42 cm MD Jignesh Gonsalez Work Phone: [facility] 05-15-2024 15:36-0400 Body mass index (BMI) [Ratio] 36.9 kg/m2 MD Jignesh Gonsalez Work Phone: [facility] 05-15-2024 15:36-0400 Body temperature 97.5 [degF] MD Jignesh Gonsalez Work Phone: [facility] 05-15-2024 15:36-0400 Body weight 127 kg MD Jignesh Gonsalez Work Phone: [facility] 05-15-2024 15:36-0400 Diastolic blood pressure 74 mm[Hg] MD Jignesh Gonsalez Work Phone: [facility] 05-15-2024 15:36-0400 Heart rate 81 /min MD Jignesh Gonsalez Work Phone: [facility] 05-15-2024 15:36-0400 Respiratory rate 18 /min MD Jignesh Gonsalez Work Phone: [facility] 05-15-2024 15:36-0400 SaO2% (BldA) [Mass fraction] 93 % MD Jignesh Gonsalez Work Phone: [facility] 05-15-2024 15:36-0400 Systolic blood pressure 119 mm[Hg] MD Jignesh Gonsalez Work Phone: [facility] 04-23-2024 13:06-0400 Body height 185.42 cm [facility] 04-23-2024 13:06-0400 Body mass index (BMI) [Ratio] 36.9 kg/m2 [facility] 04-23-2024 13:06-0400 Body temperature 97.3 [degF] [facility] 04-23-2024 13:06-0400 Body weight 127 kg [facility] 04-23-2024 13:06-0400 Diastolic blood pressure 56 mm[Hg] [facility] 04-23-2024 13:06-0400 Heart rate 80 /min [facility] 04-23-2024 13:06-0400 Respiratory rate 18 /min [facility] 04-23-2024 13:06-0400 SaO2% (BldA) [Mass fraction] 97 % [facility] 04-23-2024 13:06-0400 Systolic blood pressure 106 mm[Hg] [facility] 07-05-2023 10:00-0400 Body height 185.42 cm Luiz Riggs Other [facility] Other 07-05-2023 10:00-0400 Body mass index (BMI) [Ratio] 37.86 kg/m2 Luiz Riggs Other [facility] Other 07-05-2023 10:00-0400 Body weight 130.18 kg Luiz Riggs Other [facility] Other 07-05-2023 10:00-0400 Diastolic blood pressure 76 mm[Hg] Luiz Riggs Other [facility] Other 07-05-2023 10:00-0400 Systolic blood pressure 126 mm[Hg] Luiz Riggs Other [facility] Other 04-06-2022 17:40-0400 Body height 185.42 cm Neelam Alexandra Other [facility] Other 04-06-2022 17:40-0400 Body mass index (BMI) [Ratio] 36.15 kg/m2 Neelam Alexandra Other [facility] Other 04-06-2022 17:40-0400 Body temperature 98 [degF] Neelam Alexandra Other [facility] Other 04-06-2022 17:40-0400 Body weight 124.29 kg Neelam Alexandra Other [facility] Other 04-06-2022 17:40-0400 Diastolic blood pressure 69 mm[Hg] Neelam Alexandra Other [facility] Other 04-06-2022 17:40-0400 Respiratory rate 18 /min Neelam Alexandra Other [facility] Other 04-06-2022 17:40-0400 SaO2% (BldA) [Mass fraction] 95 % Neelam Alexandra Other [facility] Other 04-06-2022 17:40-0400 Systolic blood pressure 123 mm[Hg] Neelam Blackburnmond Other [facility] Other 12-28-2021 17:00-0500 Body height 185.42 cm Alex Bonilla Other [facility] Other 12-28-2021 17:00-0500 Body mass index (BMI) [Ratio] 37.47 kg/m2 Alex Bonilla Other [facility] Other 12-28-2021 17:00-0500 Body weight 128.82 kg Alex Bonilla Other [facility] Other Encounters Encounter Date Encounter Type Care Provider Facility Start: 05-21-2024 End: 05-21-2024 ambulatory JIGNESH GONSALEZ Not Available Start: 05-16-2024 End: 05-16-2024 ambulatory IMELDA THOMPSON Not Available Start: 05-15-2024 End: 05-15-2024 ambulatory MD Jignesh Gonsalez Work Phone: [facility] Work Phone: Start: 05-15-2024 End: 05-15-2024 Patient encounter procedure MD Jignesh Gonsalez Work Phone: [facility] [place] Work Phone: Start: 04-23-2024 End: 04-23-2024 ambulatory [facility] Work Phone: Start: 04-23-2024 End: 04-23-2024 Patient encounter procedure [facility] [place] Work Phone: Start: 04-17-2024 End: 04-17-2024 ambulatory CORNELIO COTTER Not Available Start: 03-07-2024 End: 03-07-2024 ambulatory JIGNESH GONSALEZ Not Available Start: 02-21-2024 End: 02-21-2024 ambulatory JIGNESH GONSALEZ Not Available Start: 01-11-2024 End: 01-11-2024 ambulatory SHAIKH TIESHA Not Available Start: 01-05-2024 End: 01-06-2024 ambulatory [facility] Start: 01-05-2024 End: 01-05-2024 ambulatory [facility] Start: 12-30-2023 ambulatory Chris CAMARILLO Facili ty:[facility] Start: 12-21-2023 Telephone encounter Epifanio dennison MD Work Phone: [facility] Start: 12-20-2023 ambulatory [facility] Start: 12-19-2023 End: 12-20-2023 ambulatory [facility] Start: 12-15-2023 End: 12-15-2023 ambulatory JIGNESH GONSALEZ Not Available Start: 12-07-2023 End: 12-07-2023 ambulatory JIGNESH GONSALEZ Not Available Start: 11-29-2023 End: 11-29-2023 ambulatory JIGNESH RODRÍGUEZERER Not Available Start: 10-06-2023 End: 10-06-2023 ambulatory JIGNESH NADERER Not Available Start: 07-18-2023 End: 07-19-2023 ambulatory JIGNESH NADERER Facility:[facility] Start: 07-18-2023 End: 07-18-2023 Patient encounter procedure Chris CAMARILLO [facility] Start: 07-05-2023 Office outpatient ne w 30 minutes Luiz Keely [facility] Start: 07-05-2023 End: 07-05-2023 Patient encounter procedure MD Jignesh Gonsalez Work Phone: [facility] Work Phone: Start: 07-05-2023 End: 07-05-2023 ambulatory MD Jignesh Gonsalez Work Phone: [facility] Work Phone: Start: 01-07-2023 End: 01-08-[address] JIGNESH GONSALEZ Facility:[facility]1 Start: 12-24-2022 End: 12-24-[address] JIGNESH GONSALEZ Facility:[facility] Start: 11-04-2022 End: 11-04-[address] JIGNESH GONSALEZ Facility:[facility] Start: 09-29-2022 End: 09-30-[address] JIGNESH GONSALEZ Facility:[facility] Start: 08-27-[address] JOSE MARIE [facility] ility:H1 Start: 08-23-2022 End: 08-23-[address] PORTER SCOTT . Facility:[facility] Start: 06-12-2022 End: 06-12-[address] JOSE MARIE Facility:[facility]1 Start: 04-06-2022 End: 04-06-2022 ambulatory Neelam Morris Other [facility] Other Start: 04-06-2022 Office outpatient visit 15 minutes Neelam Morris [facility] [place] Start: 12-28-2021 End: 12-28-2021 ambulatory Alex Bonilla Other [facility] Other Start: 12-28-2021 Office outpatient ne w 30 minutes Alex Bonilla [facility] Start: 11-20-2020 End: 11-20-2020 Emergency department patient visit KARINA JAY Facility:[facility] Procedures Date Procedure Procedure Detail Performing Clinician Start: 05-15-2024 Plain X-ray of left elbow MD Jignesh Gonsalez Work Phone: Start: 07-05-2023 X-ray of lumbar spin e, six views including bending views MD Jignesh Gonsalez Work Phone: Start: 09-29-[address] JOSE MARIE Comment on above: Performed By: #### P [facility] #### [facility] [address] [place] [address] Dr. Jeimy Tenorio Extraction of cataract Patri luis antonio CMAARILLO Procedure on foot Chris MERINO Plan of Treatment Date Care Activity Detail Author Start: 12-30-2023 COVID-19 Vaccine ( season) COVID-19 Vaccine () [facility] Start: 08-16-2023 Adult BMI [...] DTaP,Tdap and Td Vaccines (1 - Tdap) [facility] Start: 1967 Depression Screening Depression Screening [facility] Start: 1955 Medicare Annual Wellness Visit Medicare Annual Wellness Visit [facility] Immunizations Immunization Date Immunization Notes Care Provider Fa cility 11-04-2023 Covid-19, Mrna, Lnp- s, Bivalent, Pf, 30mcg/0.3 ml Epifanio Kaufman MD Work Phone: [facility] 08-21-2022 influenza virus vacc ine, unspecified formulation Epifanio Kaufman MD Work Phone: [facility] 08-21-2022 SARS-COV-2 (COVID-19 ) Vaccine, Unspecified Epifanio [...] preservative free [facility] 08-05-2020 pneumococcal polysaccharide vaccine, 23 valent Epifanio Kaufman MD [facility] 09-03-2019 influenza, seasonal, injectable Epifanio Kaufman MD [facility] 08-24-2019 influenza, injectabl e, quadrivalent, preservative free Epifanio Kaufman MD Work Phone: [facility] Payers Date Payer Category Payer Medicaid [id number] 2023 Self-pay [id number] 2022 Medicare [id number] 2021 Medicare AETNA MEDICARE A ETNA MEDICARE PLAN (HMO) [id number] 2021-Present [phone] [address] [place] [address] [id number] 2021 Unknown [id number] 2021 Medicare [id number] 2020 Medicare [id number] 2019 Unknown [id number] 1959 Medicare [id number] 2.16.840.1.591775.19 1955 Unknown [id number] 2.16.840.1.089702.3.579.2.647 1955 Unknown [id number] 2.16.840.1.193533.3.579.2.593 1955 Unknown [id number] 2.16.840.1.767038.3.579.2.593 1955 Unknown [id number] 2.16.840.1.898187.3.579.2.593 1955 Unknown [id number] 2.16.840.1.217418.3.579.2.593 1955 Unknown [id number] 2.16.840.1.479417.3.579.2.593 1955 Unknown [id number] 2.16.840.1.239164.3.579.2.593 1955 Unknown [id number] 2.16.840.1.859386.3.579.2.593 1955 Unknown [id number] 2.16.840.1.576090.3.579.2.1286 1955 Unknown [id number] 2.16.840.1.415225.3.579.2.727 1955 Unknown [id number] 2.16.840.1.949144.3.579.2.727 1955 Unknown [id number] 2.840.1.918522.3.579.2.1259 1955 Unknown [id number] 2.16840.1.024742.3.579.2.1259 1955 Unknown [id number] 2.840.1.467739.3.579.2.1259 1955 Unknown [id number] 2.16840.1.725829.3.579.2.1259 1955 Unknown [id number] 2.16840.1.168884.3.579.2.1259 1955 Unknown [id number] 2.16.840.1.181055.3.579.2.1259 1955 Unknown [id number] 2.16.840.1.817264.3.579.2.1259 1955 Unknown [id number] 2.16.840.1.032170.3.579.2.1259 1955 Unknown [id number] 2.16840.1.221671.3.579.2.1259 1955 Unknown [id number] 2.16.840.1.241945.3.579.2.1259 Medicare [id number] Unknown [id number] 2.16.840.1.348915.3.579.2.531 Unknown [id number] 2.16.840.1.384157.3.579.2.531 Social History Date Type Detail Facility Start: 01-01-2021 End: 08-16-2022 Sex Assigned At [facility] Start: 1955 Sex Assigned At Male F [facility] Tobacco smoking status No Smokin g Status Entered [facility] Start: 01-29-2020 Tobacco smoking stat [facility] Ex-smoker [facility] History of tobacco use Current smoker [facility] History of tobacco use Cigarette Smoker P [facility] Start: 01-29-2020 End: 01-01-2021 Cigarettes smoked current (pack per day) - Reported 3 [facility] Start: 01-29-2020 Tobacco use and exposure Smokeless tobacco non-user [facility] Start: 08-16-2022 Alcohol intake Ex-drinker (finding) [facility] Childcare Unknown [facility] Start: 1955 Sex Assigned At Not on file P [facility] Start: 04-23-2024 Tobacco smoking stat [facility] Never smoked tobacco (finding) [facility] Clinical Notes 11-21-2020 to 01-05-2024 Telephone Encounter [...] about 6 or 7 years ago, in [facility] and had injections. He states he has made his symptoms worse. Has had nanny caregiver many years ago for previous symptoms of [...] Past Medical History: Diagnosis Date Bladder cancer ([facility]) around 1997 Cholelithiasis Colon polyp Depression Dyslipidemia Hearing loss Left foot drop Peripheral neuropathy Seizure disorder ([facility]) TIA (transient ischemic attack) Past Surgical [...] by mouth in (more content not included)... [facility] 12-21-2023 Miscellaneous Notes Received faxed referral for patient to be seen for Lumbar. Called and spoke to patient, stated he has an appointment set up already at [facility] office. documented in this encounter [facility] 12-21-2023 Telephone encounter Note Received faxed referral for patient to be seen for Lumbar. Called and spoke to patient, stated he has an appointment set up already at [facility] office. [facility] 07-05-2023 Evaluation note Encounter Date Diagnosis Assessment [...] fusion of cervical spine (ICD-10 - Z98.1) [facility] Other 06-09-2023 Hospital Discharge instructions Follow Up Care 04/29/2023 15:31:28 With:RABIA GAN, Chris Brizuela, URL Address: [facility] [address] [place] [address] [phone] When: Unknown [facility] 11-10-2022 NotePROCEDURE: XR FOOT RT [...] Electronically authenticated by: KELL BLANDON Date: 2022-09-30 08:[address] [place], [place] [address]10-03-2022 NotePROCEDURE: XR KNEE LT 4V or >, [...] Electronically authenticated by: TRINIDAD BEAVER Date: 2022-08-23 14:[facility]10-03-2022 NotePROCEDURE: XR KNEE LT 4V or [...] Electronically authenticated by: TRINIDAD BEAVER Date: 2022-08-23 14:[facility]10-03-2022 NotePROCEDURE: XR KNEE LT 4V or [...] Electronically authenticated by: TRINIDAD BEAVER Date: 2022-08-23 14:[address] [place], [place] [address]85105-17-2022 Evaluation note* Encounter Date Diagnosis Assessment Notes Treatment Notes Treatment Clinical Notes March, Bilateral impacted cerumen (ICD-10 - H61.23) Avoid using Q-tips or earplugs. Keep your ears clean and dry. Follow-up with your family physician for any further concerns. [facility] Other 02-07-2022 Evaluation note* Encounter Date Diagnosis [...] contact us for further management as needed. [facility] Other 01-01-2021 NoteMR#: [id number] E [facility] Pt. Name: Nazario Cortes Admitted: 11/20/2020 [...] history of coronary artery disease, followed by [facility] Cardiology Clinic that presents to the [facility] Emergency Department with complaints of [...] to follow up with his PCP and bacteriologist medical. Total time of discharge was 45 minutes. Electronically Signed by: Trinidad Hamilton MD 11/21/2020 08:00 A Trinidad Hamilton MD .. Date Dict: 11/20/2020/06:21 P/Loida Ashley CNP Date Trans: 11/21/2020 12:04 A/shabbir [id number] cc: Jose Marie M.D. [address] [place] [address] + [facility] note Future Appointments Appointment Date:08/19/2023 10:30:00 AM Scheduled Provider:Chris CAMARILLO MD Location:[facility] Appointment Type:URO New Patient [facility] evaluation noteNo assessment information available [facility] Work Phone: Evaluation note* Diagnosis Onset Date Resolution Status Impacted cerumen of both ears acute [facility] Work Phone: Evaluation note* Diagnosis Onset Date Resolution Status Impacted cerumen of both ears acute Left elbow pain acute [facility] Work Phone: History general Narrative - Reported* Type Description Date Medical History Seizure Disorder Medical History neuropathy Medical History HX of Bladder CA Medical History hypercholesterolemia Surgical History TUMOR REMOVED FROM BLADDER Surgical History RIGHT ACHILLES TENDON REPAIR Hospitalization History See Above [facility] Other History general Narrative - Reported* Type [...] Surgical History gallbladder Hospitalization History See Above [facility] Other Hospital course Narrative No data available for this section [facility] InstructionsNot on filedocumented in this encounter [facility] No data available for this section [facility] reason for visit NarrativeReferral Dr. 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 Chief Complaint right ear pain, bronson estion Reason for Visit Impacted cerumen of both ears Chief Complaint right ear pain, bronson estion left side arm/elbow pain w fall M25.522 - Pain in left elbow Reason for Visit Impacted cerumen of both ears Left elbow pain Additional Source Comments (unrecognized sect ion and content) No Status Records FoundNo Status Records FoundNo Status Records FoundNo Status Records FoundNo Status Records FoundNo Status Records FoundNo Status Records FoundNo Status Records Found INFORMATION SOURCE (unrecogn ized section and content) DATE CREATED AUTHOR 08/29/2021 [facility] DATE CREATED AUTHOR AUTHOR'S ORGANIZ ATION 10/31/2021 [facility] DATE CREATED AUTHOR AUTHOR'S ORGANIZ ATION 01/13/2023 [facility] DATE CREATED AUTHOR AUTHOR'S ORGANIZ ATION 12/25/2023 [facility] DATE CREATED AUTHOR AUTHOR'S ORGANIZ ATION 12/29/2023 [facility] DATE CREATED AUTHOR AUTHOR'S ORGANIZ ATION 04/16/2024 [facility] DATE CREATED AUTHOR AUTHOR'S ORGANIZ ATION 05/16/2024 [facility] DATE CREATED AUTHOR AUTHOR'S ORGANIZ ATION 05/22/2024 [facility] dical Specialists EPIC REASON FOR [...] Jignesh Gonsalez MD Primary Care Provider Active Diagnostic Cardiac Sonographer Relationship Specialty Start Date End Date Jose Marie DO [address] [facility], [address] [place] [id number] PCP - General Family Medicine 11/17/23 Team Status: Inactive Member Role Status Dates Jignesh Gonsalez MD Primary Care Provider Active S tart: April 23, 2024 End: April 23, 2024 Joslyn Garcia APRN Attending Provider Active Start: April 23, 2024 End: April 23, 2024 Team Status: Inactive Member Role Status Dates Jignesh Gonsalez MD Primary Care Provider Active S tart: May 15, 2024 End: May 15, 2024 Joslyn Garcia APRN Attending Provider Active Start: May 15, 2024 End: May 15, 2024 Team Status: Active Member Role Status Dates Jignesh Gonsalez MD Primary Care Provider Active S tart: May 15, 2024 Joslyn Garcia APRN Attending Provider Active Start: May 15, 2024 Goals (unrecognized section and content) Goals may [...] BE BASED ON THE PRIMARY CLINICAL RECORDS. [employer] provides no warranty or guarantee of the accuracy or completeness of information in this document.
--- NOTE | 2024-05-24 11:01 | ED_ITS ---
HPI HPI - Fall General Chief Complaint: Back Pain/Injury Stated Complaint: fall Time Seen by Provider: 05/24/24 11:01 Source: patient Mode of arrival: ambulance History of Present Illness HPI Narrative: This patient is here for evaluation of pain in his anterior lateral left chest wall. He fell previously. He has been imaged at outpatient facilities and has a known fracture of his left elbow. He is in a sling but he says he cannot wear the sling because now his chest wall hurts. He does not have any history of pain in his sternal area there is no nausea vomiting or diaphoresis. It is in the left lower anterior lateral area of the ribs. Does not have any pain in his back. No injury to his head or neck. He has no shortness of breath. Related Data Home Medications ?Medication ?Instructions ?Recorded ?Confirmed atorvastatin 10 mg tablet 10 mg PO .hs 05/12/23 05/24/24 citalopram 40 mg tablet 40 mg PO DAILY 05/12/23 05/24/24 meclizine 25 mg tablet 25 mg PO QID PRN dizziness 05/12/23 05/24/24 phenobarbital 32.4 mg tablet 32.4 mg PO Q12H 05/12/23 05/24/24 phenytoin sodium extended 100 mg 200 mg PO TID 05/12/23 05/24/24 capsule furosemide 40 mg tablet 40 mg PO DAILY PRN edema 05/24/24 05/24/24 nitroglycerin 0.3 mg sublingual 0.3 mg sublingual Q5M PRN chest 05/24/24 05/24/24 tablet pain potassium chloride 20 mEq 20 meq PO DAILY PRN hypokalemia 05/24/24 05/24/24 tablet,extended release Previous Rx's ?Medication ?Instructions ?Recorded hydrocodone 5 mg-acetaminophen 325 1 tab PO Q6H PRN pain 3 days #12 02/19/24 mg tablet tabs Allergies Allergy/AdvReac Type Severity Reaction Status Date / Time gabapentin Allergy Intermediate Verified 01/30/24 15:16 oxycodone [From OxyContin] Allergy Intermediate Verified 01/30/24 15:16 phenytoin [From Dilantin] Allergy Intermediate Verified 01/30/24 15:16 Opioid HPI Opioid Management Most Recent Pain and Opioid Data: Last Pain Scale 1 02/23/24 14:06 PFSH PFSH Medical History (Updated 05/24/24 @ 12:05 by Dhaval Shahid MD) CAD, multiple vessel ?I25.10 - Atherosclerotic heart disease of [place] coronary artery without angina pectoris (ICD-10) 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 - Malignant neoplasm of mediastinum, part unspecified (ICD-10) Bladder cancer ?C67.9 - Malignant neoplasm of bladder, unspecified (ICD-10) HLD (hyperlipidemia) ?E78.5 - Hyperlipidemia, unspecified (ICD-10) Chest pain ?R07.9 - Chest pain, unspecified (ICD-10) Family History (Updated 12/31/23 @ 12:13 by Shaikh Florentin MD) Father Family history of myocardial infarction Sister Family history of cancer Social History Smoking status: Former smoker Highest level of school completed/degree received: Associate degree: occupational, technical, vocational program Gender Identity: male Exam Narrative Exam Narrative: Awake alert sitting comfortably. He sits up and moves about comfortably. His vital sign Study:. Pulse oximetry is normal and there is no respiratory distress. He is awake alert [place] x 3 GCS 15. He is not wearing his sling. He has complete unrestricted range of motion of his left elbow. He has no neurovascular symptomatology in his forearm or hand. Examining his anterior lateral chest wall I see no no bruises contusions hematomas. There is no crepitation. His lungs are clear both anterior and posterior. There is no tenderness in the middle of his spinal area head and neck structures are normal. Constitutional Vital Signs, click to edit/add: Last Vital Signs Temp 98.4 F 05/24/24 10:13 Pulse 73 05/24/24 10:13 Resp 24 H 05/24/24 10:13 BP 135/78 05/24/24 10:13 Pulse Ox 94 L 05/24/24 10:13 O2 Del Method Room Air 05/24/24 10:13 Course Vital Signs Vital signs: Vital Signs Temperature 98.4 F 05/24/24 10:13 Pulse Rate 73 05/24/24 10:13 Respiratory Rate 24 H 05/24/24 10:13 Blood Pressure 135/78 05/24/24 10:13 Pulse Oximetry 94 L 05/24/24 10:13 Oxygen Delivery Method Room Air 05/24/24 10:13 Temperature 98.4 F 05/24/24 10:13 Pulse Rate 73 05/24/24 10:13 Respiratory Rate 24 H 05/24/24 10:13 Blood Pressure 135/78 05/24/24 10:13 Pulse Oximetry 94 L 05/24/24 10:13 Oxygen Delivery Method Room Air 05/24/24 10:13 MDM - Fall MDM Narrative Medical decision making narrative: X-rays of the ribs were done and do not show any acute injury. He certainly could have continued bruising making his discomfort clinically. I do not believe this is cardiovascular. As this is clearly point tenderness in the previously described area. Carriage and follow-up with this orthopedic providers for ongoing care of his left elbow. Discharge Plan Discharge Stand Alone Forms: Portal Instructions Chief Complaint: Back Pain/Injury Clinical Impression: Chest wall contusion Patient Disposition: Home, Self-Care Time of Disposition Decision: 12:04 Prescriptions / Home Meds: No Action hydrocodone-acetaminophen 5-325 mg tablet 1 tab PO Q6H PRN (Reason: pain) 3 Days Qty: 12 0RF Rx Instructions: M54.5 furosemide 40 mg tablet 40 mg PO DAILY PRN (Reason: edema) nitroglycerin 0.3 mg tablet, sublingual 0.3 mg sublingual Q5M PRN (Reason: chest pain) potassium chloride 20 mEq tablet extended release 20 meq PO DAILY PRN (Reason: hypokalemia) atorvastatin 10 mg tablet 10 mg PO .hs citalopram 40 mg tablet 40 mg PO DAILY meclizine 25 mg tablet 25 mg PO QID PRN (Reason: dizziness) phenobarbital 32.4 mg tablet 32.4 mg PO Q12H phenytoin sodium extended 100 mg capsule 200 mg PO TID Print Language: Ecuadorean Additional Instructions: Wear your elbow sling until released by your orthopedic doctor. Referrals: Jignesh Manjarrez MD [Primary Care Provider] - 1 week
--- NOTE | 2024-05-24 11:01 | XR_ITS ---
The [address] [address] Patient Name: GÓMEZ CORTES MRN: [id number] date: 1955 Sex: M Assigned Patient Location: ED.MAIN Current Patient Location: ED.MAIN Accession/Order Number: [id number] Exam Date: 05/24/2024 11:10 Report Date: 05/24/2024 12:11 At the request of: MIKA DAVEY Procedure: XR ribs LT min 3V w CXR1V Ribs EXAM: XR ribs LT min 3V w CXR1V HISTORY: Fall COMPARISON: 02/23/2024 TECHNIQUE: Chest, single view. Left rib series with 8 images obtained. FINDINGS: Lungs/pleura: Surgical trisha are seen along the right perihilar. Persistent right lower and base pleura thickening and airspace opacity. No pneumothorax. Bones: Diffuse osteopenia and overlying heart, limited evaluation of the bones. However, no definite acute abnormality is identified. XR/XR ribs LT min 3V w CXR1V IMPRESSION: No acute displaced rib fracture. Electronically authenticated by: LESTER HARP Date: 05/24/2024 12:11
[2024-05-24 11:54] LABS: Bilirubin Urine NEGATIVE (NEGATIVE); Blood Urine NEGATIVE (NEGATIVE); Clarity Urine CLEAR (CLEAR); Color Urine YELLOW (YELLOW); Glucose Urine UA NEGATIVE (NEGATIVE); Ketones Urine NEGATIVE (NEGATIVE); Leukocyte Esterase Urine NEGATIVE (NEGATIVE); Nitrite Urine NEGATIVE (NEGATIVE); Protein Urine NEGATIVE (NEG/TRACE); Urobilinogen Urine 0.2 EU/dL (0.2-1.0); pH Urine 5.5 (5.0-9.0)
[2024-05-24 11:58] LABS: Urine Microscopic Indicated NO
[2024-05-24] MEDS: HYDROCODONE/ACET 5-325 MG TABLET 1 TAB PO (12:14)
== END 2024-05-24 12:27 | disposition home or self-care (01) ==
PROVIDERS: Emergency Provider Emergency Medicine Emergency Medical Services; PCP Family Medicine
DX: S20.219A Contusion of unspecified front wall of thorax, initial encounter (principal); W19.XXXA Unspecified fall, initial encounter; Z87.891 Personal history of nicotine dependence
CPT/HCPCS: 71101; 81003; 99284

== ENCOUNTER 2024-06-12 20:32 | Outpatient (OUT) | payer MEDICARE, MEDICAID, SELFPAY ==
--- OUTSIDE RECORDS SUMMARY | 2024-06-12 20:35 | XMS_ITS | CCD ---
Author Organization [facility] Care Team Providers Care Pants Presser Automatic Name Role Phone KARINA JAY Attending Unavailable [...] NADJEM, DR JIGNESH Means Primary Care Unavailable [employer], DR TRINIDAD Cummins Consulting Unavailable LUZMARIA ., [...] JIGNESH Means Primary Care Unavailable BARBER, DR EKLL Brizuela Consulting Unavailable WALLACEDR JIGNESH Consulting Unavailable Luiz Riggs Unavailable MD Luiz Riggs Attending Provider MD Jignesh Gonsalez Primary Care Provider [phone] JIGNESH GONSALEZ Primary Care Physician Jose Marie DO Primary Care Provider Chris CAMARILLO Attending Unavailable JIGNESH GONSALEZ Referring Unavailable Chris CAMARILLO Attending Unavailable ROGERIO BAINS Referring Unavailable CORNELIO HODGES Referring Unavailable CORNELIO HODGES Attending Unavailable MD Jignesh Gonsalez Primary Care Provider RIDGE Garcia Attending Provider Jignesh Gonsalez Primary [...] Drug Allergy 4 stomach upset, IV ONLY-Dizzy [facility] Opioid Agonists (2 sources) oxyCODONE; Translations: [oxycodone] Drug Allergy 4 Unknown Reaction [facility] (7 sources) gabapentin; Translations: [GABAPENTIN] Drug Allergy 0 stomach upset [facility] Repository (2 sources) oxyCODONE Drug Allergy 0 [facility] Repository (3 sources) Phenytoin; Translations: [Dilantin] Drug Allergy 0 [facility] Repository (5 sources) gabapentin; Translations: [gabapentin] Drug Allergy 0 Unknown (qualifier value) [facility] (10 sources) oxyCODONE; Translations: [oxycodone] Drug Allergy 0 Difficulty breathing (finding), Angioedema [facility] (7 sources) Phenytoin; Translations: [phenytoin] Drug Allergy 6 Dizziness (finding), Dizziness [facility] (1 source) Phenytoin; Translations: [PHENYTOIN SODIUM EXTENDED] Drug Allergy 6 [facility] Repository (1 source) ALLERGIES NOT ON FILE; Translations: [ALLERGIES NOT ON FILE] Propensity to adverse reactions (disorder) [facility] Repository Medications Current Medications Medication Drug Class(es) Dates Sig (Normalized) Sig (Original) acetaminophen 325 mg / HYDROcodone bitartrate 5 mg oral tablet (5 sources) Opioid Agonist Start: 04-23-2024 take 1 tablet by mouth four times daily Hydrocodone-Aceta minophen Active 1 TAB PO Four times daily April 23, 2024 12:00am [place] Active take 1 tablet by mouth every [...] 2 mg/ml injectable solution (1 source) vit H4-V0-R8-B5- B6 (B-COMPLEX INJECTION) 250-9-546-2-2 mg/mL solution B-Complex 1 QD 0 Active [...] TAB PO Daily April 23, 2024 12:00am gscxqvsfqief-limmugvm-jp tein (MULTIVITAMIN 50 PLUS) tablet (1 source) multivitamin-min erals-liam tein (MULTIVITAMIN 50 PLUS) tablet daily. 0 Active PHENobarbital 32.4 mg oral tablet (7 sources) Start: 04-23-2024 take 32.4 mg by mouth three times daily Phenobarbital Active 32.4 MG PO Three times daily April 23, 2024 12:00am Start: 11-15-2022 take 2 tablets by mo [facility] three times daily PHENobarbitaL (LUMINAL) 32.4 [...] 08/30/2022 Active take 1 capsule by mo [facility] every twelve hours Phenytoin Sodium Extended [...] disease (1 source) Atherosclerotic heart disease of [place] coronary artery without angina pectoris; Translations: [ASHD KOTZEBUE CA W/O ANGINA PECTORIS] Onset: 12-27-2022 Chronic [...] 08-16-2022 08-16-2022 Chronic Other aftercare (1 source) intermediate (current) use of aspirin; Translations: [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 USE OF ASPIRIN] Onset: 12-27-2022 Episodic Other aftercare (1 source) Other superintendent terminal (current) drug therapy; Translations: [OTH PENITENTIARY CURRENT DRUG THERAPY] Onset: 12-27-2022 Episodic Other [...] 3V*on 2023 XR elbow LT min 3V* [facility] [address] [place] [id number] XRay Report Signed Patient: Nazario Cortes Jr MR#: [id number] : 1955 Acct:[id number] Age/Sex: 69 / M ADM Date: 05/15/24 Loc: XDUCLY Room: Type: [facility] Attending Dr: Joslyn Garcia APRN Copies to: [...] Zain Fitzpatrick M.D.05/15/2024 4:23 PM Dictation Location: [place] [address] Transcribed By: [facility] 05/15/24 1623 Dictated By: Zain Fitzpatrick DO 05/15/24 1621 Signed By: 05/15/24 1623 Normal [facility] Orders Onlyon 04-11-2024 Orders Only [id number] Nazario Cortes 1955 M Date Provider Department Center 04/11/2024 [id number], HISTORICAL [facility] Family History Problem Relation Age of Onset Supraventricular tachycardia Mother Stroke Father Kidney cancer Sister Diabetes Sister COPD Brother Family Status - Relation Status Age at Mother Father Sister Brother Normal [facility] Consulton 01-05-2024 Consult [id number] Nazario Cortes 1955 M Date Provider Department Center 01/05/2024 Oscar-CORNELIO HODGES [facility] SUR[facility] [place] Family History Problem Relation Age of Onset Supraventricular tachycardia Mother Stroke Father Kidney cancer Sister Diabetes Sister COPD Brother Family Status - Relation Status Age at Mother Father Sister Brother Level of Service:[id number] HI OFFICE/OUTPATIENT NEW MODERATE MDM 45 MINUTES Reason [...] little relief about 6-7 years ago. Normal [facility] XR lumbar spine 6V w bending on 07-05-2023 XR lumbar spine 6V w bending [facility] [address] [place] [address] XRay Report Signed Patient: Nazario Cortes Jr MR#: [id number] : 1955 Acct:[id number] Age/Sex: 68 / M ADM Date: 07/05/23 Loc: XD Room: Type: [facility] Attending Dr: Luiz Riggs MD Copies to: [...] Hoa Lockwood M.D.07/05/2023 2:21 PM Dictation Location: [facility]--10 Transcribed By: [facility] 07/05/23 1421 Dictated By: Hoa Lockwood MD 07/05/23 1415 Signed By: 07/05/23 142 Normal [facility] US CAROTID ART BILon 01-11- [...] by: KELL BLANDON Date: 2023-01-11 08:42 Normal [facility] ECHOCARDIO M/2D COMPLETEon 0 01-07-2023 ECHOCARDIO M/2D COMPLETE Patient: NAZARIO CORTES Exam Date: 01/07/2023 : 1955 Gender:M Ordering : DR JIGNESH GONSALEZ . Admission #: [id number] Family : Order #: [id number] CLICK HERE TO VIEW EXAM ECHOCARDIOGRAM REPORT [...] Smith M.D. on 01/11/2023 at 18:23 Normal [facility] XR ELBOW LT MIN 3 [...] by: VIDAL FRASER Date: 2022-12-24 20:23 Normal [facility] XR HIP LT 2 3V [...] fracture or malalignment. Electronically authenticated by: VIDAL REBIScanKRYSTAL Date: 2022-12-24 20:21 Normal [facility] XR HUMERUS LT MIN 2Von 12-24 [...] Date: 2022-12-24 21:03 Normal [facility] CBC AUTO DIFFon 11-04-2022 BASO # 0.1 103/ul Normal 0.0-0.1 [facility] Comment on above: Performed By: #### B MP, CMREP, LIPID #### [facility] [address] [place] [address] [address] Jeimy Tenorio Basophils/100 WBC (Bld) 0.9 % Normal 0.2-2.0 [facility] Comment on above: Performed By: #### B MP, CMREP, LIPID #### [facility] [address] [place] [address] [address] Jeimy Tenorio EO # 0.3 103/ul Normal 0.0-0.7 [facility] Comment on above: Performed By: #### B MP, CMREP, LIPID #### [facility] [address] [address] [address] Jeimy Tenorio Eosinophils/100 WBC (Bld) 5.2 % Normal 0.9-7.0 [facility] Comment on above: Performed By: #### B MP, CMREP, LIPID #### [facility] [address] [address] [address] Jeimy Tenorio Erythrocyte distribution width (RBC) [Ratio] 12.9 % Normal 11.0-15.0 [facility] Comment on above: Performed By: #### B MP, CMREP, LIPID #### [facility] [address] [address] [address] Jeimy Tenorio Hematocrit (Bld) [Volume fraction] 39.5 % Critically low 42.0-54.0 [facility] Comment on above: Performed By: #### B MP, CMREP, LIPID #### [facility] [address] [place] [address] Dr. Jeimy Tenorio Hemoglobin (Bld) [Mass/Vol] 13.1 g/dL Critically low 14.0-18.0 [facility] Comment on above: Performed By: #### B MP, CMREP, LIPID #### [facility] [address] [place] [address] Dr. Jeimy Tenorio IG # 0.03 10e3/ul Normal 0.00-0.03 [facility] Comment on above: Performed By: #### B MP, CMREP, LIPID #### [facility] [address] [place] [address] Dr. Jeimy Tenorio IG % 0.5 % Normal 0.0-0.5 [facility] Comment on above: Performed By: #### B MP, CMREP, LIPID #### [facility] [address] [place] [address] Dr. Jeimy Tenorio LYMPH # 1.5 103/ul Normal 1.2-3.8 [facility] Comment on above: Performed By: #### B MP, CMREP, LIPID #### [facility] [address] [place] [address] Dr. Jeimy Tenorio Lymphocytes/100 WBC (Bld) 22.6 % Normal 20.5-60.0 [facility] Comment on above: Performed By: #### B MP, CMREP, LIPID #### [facility] [address] [place] [address] Dr. Jeimy Tenorio MANUAL DIFF REQ NO Normal [facility] Comment on above: Performed By: #### B MP, CMREP, LIPID #### [facility] [address] [place] [address] Dr. Jeimy Tenorio MCH (RBC) [Entitic mass] 32.8 pg Normal 25.9-34.0 [facility] Comment on above: Performed By: #### B MP, CMREP, LIPID #### [facility] [address] [place] [address] Dr. Jeimy Tenorio MCHC (RBC) [Mass/Vol] 33.2 g/dL Normal 29.9-35.2 [facility] Comment on above: Performed By: #### B MP, CMREP, LIPID #### [facility] [address] [place] [address] Dr. Jeimy Tenorio MCV (RBC) [Entitic vol] 99.0 fL Critically high 80.0-94.0 [facility] Comment on above: Performed By: #### B MP, CMREP, LIPID #### [facility] [address] [place] [address] Dr. Jeimy Tenorio MONO # 0.7 103/ul Normal 0.3-0.8 [facility] Comment on above: Performed By: #### B MP, CMREP, LIPID #### [facility] [address] [place] [address] Dr. Jeimy Tenorio Monocytes/100 WBC (Bld) 10.6 % Normal 1.7-12.0 [facility] Comment on above: Performed By: #### B MP, CMREP, LIPID #### [facility] [address] [place] [address] Dr. Jeimy Tenorio NEUT # 4.0 103/ul Normal 1.4-6.5 [facility] Comment on above: Performed By: #### B MP, CMREP, LIPID #### [facility] [address] [place] [address] Dr. Jeimy Tenorio Neutrophils/100 WBC (Bld) 60.2 % Normal 43.0-75.0 [facility] Comment on above: Performed By: #### B MP, CMREP, LIPID #### [facility] [address] [place] [address] Dr. Jeimy Tenorio Platelet mean volume (Bld) [Entitic vol] 9.7 fL Normal 9.5-13.5 [facility] Comment on above: Performed By: #### B MP, CMREP, LIPID #### [facility] [address] [place] [address] Dr. Jeimy Tenorio PLT 176 103/ul Normal 150-450 [facility] Comment on above: Performed By: #### B MP, CMREP, LIPID #### [facility] [address] [place], [place] [address] Dr. Jeimy Tenorio RBC 3.99 106/ul Critically low 4.70-6.10 [facility] Comment on above: Performed By: #### B MP, CMREP, LIPID #### [facility] [address] [place], [place] [address] Dr. Jeimy Tenorio WBC 6.6 103/ul Normal 4.0-11.0 [facility] Comment on above: Performed By: #### B MP, CMREP, LIPID #### [facility] [address] [place], [place] [address] HEAD WO CONon [...] Date: 2022-11-04 14:08 Normal [facility] Covid-19 PCR (CVDTB)on 10-21 SARS-CoV-2 (COVID-19) RNA ALEX+probe Ql (Unsp spec) Not detected Normal NOT DETECTED [facility] Comment on above: Result Comment: This test is not yet approved or cleared by the [place] FDA. When there are no FDA-approved or cleared tests available, and other criteria are met, FDA can make tests available under an emergency access mechanism called an Emergency Use Authorization (EUA). The EUA for this test is supported by the [place] of Health and Human Service's (HHS's) declaration [...] B MP, CMREP, LIPID #### [facility] [address] [place] [address] Dr. Jeimy Tenorio INFLUENZA A AND B AGon 11-04 INFLUANE SEE BELOW Normal [facility] Comment on above: Result Comment: Nega tive for Flu A protein angiten. Infection due to Flu A cannot be ruled out. Flu A angiten in the sample may be below the detection limit of the test. Performed By: #### I NFLUAB #### [facility] [address] [place] [address] Dr. Jeimy Tenorio INFLUBNEGH SEE BELOW Normal [facility] Comment on above: Result Comment: Nega tive for Flu B protein antigen. Infection due to Flu B cannot be ruled out. Flu B antigen in the sample may be below the detection limit of the test. Performed By: #### I NFLUAB #### [facility] [address] [place] [address] Dr. Jeimy Tenorio INFLUENZA A AG Negative Normal NEGATIVE SEE COMMENT [facility] Comment on above: Performed By: #### I NFLUAB #### [facility] [address] [place] [address] Dr. Jeimy Tenorio INFLUENZA B AG Negative Normal NEGATIVE SEE COMMENT [facility] Comment on above: Performed By: #### I NFLUAB #### [facility] [address] [place] [address] Dr. Jeimy Tenorio INTERNAL CONTROLS Within Normal Limits Normal Wi thin Normal Limits [facility] Comment on above: Performed By: #### I NFLUAB #### [facility] [address] [place] [address] Dr. Jeimy Tenorio PROF CHEM 8 (BAS METB)on Anion gap [Moles/Vol] 9.7 mmol/L Normal [facility] Comment on above: Performed By: #### C BC #### [facility] [address] [place] [address] Dr. Jeimy Tenorio Calcium [Mass/Vol] 8.0 mg/dL Critically low 8.5-10.1 [facility] Comment on above: Performed By: #### C BC #### [facility] [address] [place] [address] Dr. Jeimy Tenorio Chloride [Moles/Vol] 104 mmol/L Normal 98-107 [facility] Comment on above: Performed By: #### C BC #### [facility] [address] [place] [address] Dr. Jeimy Tenorio CO2 [Moles/Vol] 31.1 mmol/L Normal 21.0-32.0 [facility] Comment on above: Performed By: #### C BC #### [facility] [address] [place] [address] Dr. Jeimy Tenorio Creatinine [Mass/Vol] 0.75 mg/dL Normal 0.70-1.30 [facility] Comment on above: Performed By: #### C BC #### [facility] [address] [place] [address] Dr. Jeimy Tenorio EGFR-AF SERBIAN >60 Normal >=60 [facility] Comment on above: Performed By: #### C BC #### [facility] [address] [place] [address] Dr. Jeimy Tenorio EGFR-NON AF SERBIAN >60 Normal >=60 [facility] Comment on above: Performed By: #### C BC #### [facility] [address] [address] [address] Jeimy Tenorio Glucose [Mass/Vol] 76 mg/dL Normal 74-106 [facility] Comment on above: Performed By: #### C BC #### [facility] [address] [address] [address] Jeimy Tenorio Potassium [Moles/Vol] 3.8 mmol/L Normal 3.5-5.1 [facility] Comment on above: Performed By: #### C BC #### [facility] [address] [address] [address] Jeimy Tenorio Sodium [Moles/Vol] 141 mmol/L Normal 136-145 [facility] Comment on above: Performed By: #### C BC #### [facility] [address] [address] [address] Jeimy Tenorio Urea nitrogen [Mass/Vol] 12.0 mg/dL Normal 7.0-18.0 [facility] Comment on above: Performed By: #### C BC #### [facility] [address] [address] [address] Jeimy Tenorio Urea nitrogen/Creatinine [Mass ratio] 16.0 mg/mg Normal [facility] Comment on above: Performed By: #### C BC #### [facility] [address] [address] [address] Jeimy Tenorio TROPONIN, HIGH SENSITIVITYon 11-04-2022 HSTROP 5.8 pg/mL Normal 4.0-76.1 [facility] Comment on above: Result Comment: CUT- OFF POINTS HAVE BEEN ESTABLISHED BASED ON THE FOURTH UNIVERSAL DEFINITIONS OF MYOCARDIAL INFARCTION. THE UPPER REFERENCE LIMIT (URL) OF TROPONIN, DEFINED THE 99TH PERCENTILE OF cTnI DISTRIBUTION IN A REFERENCE POPULATION, HAS BEEN CONFIRMED THE DECISION THRESHOLD FOR [place] DIAGNOSIS. Performed By: #### C BC #### [facility] [address] [place] [address] Dr. Jeimy Tenorio CBC AUTO DIFFon 09-29-2022 BASO # 0.1 103/ul Normal 0.0-0.1 [facility] Comment on above: Performed By: #### B MP, CMREP, LIPID #### [facility] [address] [place] [address] Dr. Jeimy Tenorio Basophils/100 WBC (Bld) 1.2 % Normal 0.2-2.0 [facility] Comment on above: Performed By: #### B MP, CMREP, LIPID #### [facility] [address] [place] [address] Dr. Jeimy Tenorio EO # 0.3 103/ul Normal 0.0-0.7 [facility] Comment on above: Performed By: #### B MP, CMREP, LIPID #### [facility] [address] [place] [address] Dr. Jeimy Tenorio Eosinophils/100 WBC (Bld) 4.9 % Normal 0.9-7.0 [facility] Comment on above: Performed By: #### B MP, CMREP, LIPID #### [facility] [address] [place] [address] Dr. Jeimy Tenorio Erythrocyte distribution width (RBC) [Ratio] 13.2 % Normal 11.0-15.0 [facility] Comment on above: Performed By: #### B MP, CMREP, LIPID #### [facility] [address] [place] [address] Dr. Jeimy Tenorio Hematocrit (Bld) [Volume fraction] 42.3 % Normal 42.0-54.0 [facility] Comment on above: Performed By: #### B MP, CMREP, LIPID #### [facility] [address] [place] [address] Dr. Jeimy Tenorio Hemoglobin (Bld) [Mass/Vol] 13.8 g/dL Critically low 14.0-18.0 [facility] Comment on above: Performed By: #### B MP, CMREP, LIPID #### [facility] [address] [place] [address] Dr. Jeimy Tenorio IG # 0.02 10e3/ul Normal 0.00-0.03 [facility] Comment on above: Performed By: #### B MP, CMREP, LIPID #### [facility] [address] [address] [address] Jeimy Tenorio IG % 0.3 % Normal 0.0-0.5 [facility] Comment on above: Performed By: #### B MP, CMREP, LIPID #### [facility] [address] [address] [address] Jeimy Tenorio LYMPH # 1.3 103/ul Normal 1.2-3.8 [facility] Comment on above: Performed By: #### B MP, CMREP, LIPID #### [facility] [address] [address] [address] Jeimy Tenorio Lymphocytes/100 WBC (Bld) 19.5 % Critically low 20.5-60.0 [facility] Comment on above: Performed By: #### B MP, CMREP, LIPID #### [facility] [address] [place] [address] Dr. Jeimy Tenorio MANUAL DIFF REQ NO Normal [facility] Comment on above: Performed By: #### B MP, CMREP, LIPID #### [facility] [address] [address] [address] Jeimy Tenorio MCH (RBC) [Entitic mass] 32.9 pg Normal 25.9-34.0 [facility] Comment on above: Performed By: #### B MP, CMREP, LIPID #### [facility] [address] [place] [address] Dr. Jeimy Tenorio MCHC (RBC) [Mass/Vol] 32.6 g/dL Normal 29.9-35.2 [facility] Comment on above: Performed By: #### B MP, CMREP, LIPID #### [facility] [address] [address] [address] Jeimy Tenorio MCV (RBC) [Entitic vol] 100.7 fL Critically high 80.0-94.0 [facility] Comment on above: Performed By: #### B MP, CMREP, LIPID #### [facility] [address] [address] [address] Jeimy Tenorio MONO # 0.7 103/ul Normal 0.3-0.8 [facility] Comment on above: Performed By: #### B MP, CMREP, LIPID #### [facility] [address] [place] [address] Dr. Jeimy Tenorio Monocytes/100 WBC (Bld) 9.9 % Normal 1.7-12.0 [facility] Comment on above: Performed By: #### B MP, CMREP, LIPID #### [facility] [address] [place] [address] Dr. Jeimy Tenorio NEUT # 4.3 103/ul Normal 1.4-6.5 [facility] Comment on above: Performed By: #### B MP, CMREP, LIPID #### [facility] [address] [place] [address] Dr. Jeimy Tenorio Neutrophils/100 WBC (Bld) 64.2 % Normal 43.0-75.0 [facility] Comment on above: Performed By: #### B MP, CMREP, LIPID #### [facility] [address] [place] [address] Dr. Jeimy Tenorio Platelet mean volume (Bld) [Entitic vol] 10.4 fL Normal 9.5-13.5 [facility] Comment on above: Performed By: #### B MP, CMREP, LIPID #### [facility] [address] [place] [address] Dr. Jeimy Tenorio PLT 209 103/ul Normal 150-450 [facility] Comment on above: Performed By: #### B MP, CMREP, LIPID #### [facility] [address] [place] [address] Dr. Jeimy Tenorio RBC 4.20 106/ul Critically low 4.70-6.10 [facility] Comment on above: Performed By: #### B MP, CMREP, LIPID #### [facility] [address] [place] [address] Dr. Jeimy Tenorio WBC 6.7 103/ul Normal 4.0-11.0 [facility] Comment on above: Performed By: #### B MP, CMREP, LIPID #### [facility] [address] [place] [address] Dr. Jeimy Tenorio DILANTIKaylen 09-29-2022 Phenytoin [Mass/Vol] 23.7 ug/mL Critically high 10.0-20.0 [facility] Comment on above: Performed By: #### C BC #### [facility] [address] [address] [address] Jeimy Tenorio GLYCOHEMOGLOBIN A1Con 2021 ADA RECOMMENDATION SEE BELOW Normal [facility] Comment on above: Result Comment: ADA RECOMMENDED LIMIT 4.0 - 6.0 ADA THERAPEUTIC TARGET < 7.0 ACTION SUGGESTED > 7.0 Performed By: #### A 1C #### [facility] [address] [address] [address] Jeimy Tenorio Glucose [Mass/Vol] 105 mg/dL Normal [facility] Comment on above: Performed By: #### A 1C #### [facility] [address] [address] [address] Jeimy Tenorio HbA1c (Bld) [Mass fraction] 5.3 % Normal 4.5-6.2 [facility] Comment on above: Performed By: #### A 1C #### [facility] [address] [address] [address] Jeimy Tenorio LIPID PROFILEon 09-29-2022 CHOL-HDL RATIO NORM SEE BELOW Normal [facility] Comment on above: Result Comment: 3.3 - 4.4 LOW RISK 4.4 - 7.1 AVERAGE RISK 7.1 - 11.0 MODERATE RISK >11.0 HIGH RISK Performed By: #### B MP, CMREP, LIPID #### [facility] [address] [address] [address] Jeimy Tenorio Cholesterol [Mass/Vol] 178 mg/dL Normal <=200 [facility] Comment on above: Performed By: #### B MP, CMREP, LIPID #### [facility] [address] [address] [address] Jeimy Tenorio Cholesterol in HDL [Mass/Vol] 56 mg/dL Normal 40-60 [facility] Comment on above: Performed By: #### B MP, CMREP, LIPID #### [facility] [address] [address] [address] Jeimy Tenorio Cholesterol in LDL [Mass/Vol] 86.8 mg/dL Normal [facility] Comment on above: Performed By: #### B MP, CMREP, LIPID #### [facility] [address] [address] [address] Jeimy Tenorio Cholesterol.total/Ch olesterol in HDL [Mass ratio] 3.2 {ratio} Normal [facility] Comment on above: Performed By: #### B MP, CMREP, LIPID #### [facility] [address] [address] [address] Jeimy Tenorio HDL NORMAL > or = 60 mg/dl - LO W CARDIOVASCULAR RISK <40 mg/dl - HIGH CARDIOVASCULAR RISK Normal [facility] Comment on above: Performed By: #### B MP, CMREP, LIPID #### [facility] [address] [address] [address] Jeimy Tenorio LDL CALC NORMAL SEE BELOW Normal [facility] Comment on above: Result Comment: <100 mg/dl OPTIMAL 100 - 129 mg/dl NEAR OR ABOVE OPTIMAL 130 - 159 mg/dl BORDERLINE HIGH 160 - 189 mg/dl HIGH >190 mg/dl VERY HIGH Performed By: #### B MP, CMREP, LIPID #### [facility] [address] [address] [address] Jeimy Tenorio Triglyceride [Mass/Vol] 176 mg/dL Critically high <=150 [facility] Comment on above: Performed By: #### B MP, CMREP, LIPID #### [facility] [address] [address] [address] Jeimy Tenorio VLDL CALC 35.2 mg/dL Normal [facility] Comment on above: Performed By: #### B MP, CMREP, LIPID #### [facility] [address] [address] [address] Jeimy Tenorio LIVER PROFILEon 09-29-2022 Albumin [Mass/Vol] 3.5 g/dL Normal 3.4-5.0 [facility] Comment on above: Performed By: #### B MP, CMREP, LIPID #### [facility] [address] [address] [address] Jeimy Tenorio Albumin/Globulin [Mass ratio] 0.8 {ratio} Normal [facility] Comment on above: Performed By: #### B MP, CMREP, LIPID #### [facility] [address] [address] [address] Jeimy Tenorio ALP [Catalytic activity/Vol] 139 U/L Critically high 46-116 [facility] Comment on above: Performed By: #### B MP, CMREP, LIPID #### [facility] [address] [address] [address] Jeimy Tenorio ALT [Catalytic activity/Vol] 25 U/L Normal 16-63 [facility] Comment on above: Performed By: #### B MP, CMREP, LIPID #### [facility] [address] [place] [address] Dr. Jeimy Tenorio AST [Catalytic activity/Vol] 23 U/L Normal 15-37 [facility] Comment on above: Performed By: #### B MP, CMREP, LIPID #### [facility] [address] [place] [address] Dr. Jeimy Tenorio BILI, CONJUGATED 0.0 mg/dL Normal 0.0-0.2 [facility] Comment on above: Performed By: #### B MP, CMREP, LIPID #### [facility] [address] [place] [address] Dr. Jeimy Tenorio Bilirubin [Mass/Vol] 0.3 mg/dL Normal 0.2-1.0 [facility] Comment on above: Performed By: #### B MP, CMREP, LIPID #### [facility] [address] [place] [address] Dr. Jeimy Tenorio Globulin (S) [Mass/Vol] 4.3 g/dL Normal [facility] Comment on above: Performed By: #### B MP, CMREP, LIPID #### [facility] [address] [address] [address] Jeimy Tenorio Protein [Mass/Vol] 7.8 g/dL Normal 6.4-8.2 [facility] Comment on above: Performed By: #### B MP, CMREP, LIPID #### [facility] [address] [place] [address] Dr. Jeimy Tenorio PROF CHEM 8 (BAS METB)on Anion gap [Moles/Vol] 8.7 mmol/L Normal [facility] Comment on above: Performed By: #### B MP, CMREP, LIPID #### [facility] [address] [place] [address] Dr. Jeimy Tenorio Calcium [Mass/Vol] 8.7 mg/dL Normal 8.5-10.1 [facility] Comment on above: Performed By: #### B MP, CMREP, LIPID #### [facility] [address] [place] [address] Dr. Jeimy Tenorio Chloride [Moles/Vol] 104 mmol/L Normal 98-107 [facility] Comment on above: Performed By: #### B MP, CMREP, LIPID #### [facility] [address] [place] [address] Dr. Jeimy Tenorio CO2 [Moles/Vol] 29.8 mmol/L Normal 21.0-32.0 [facility] Comment on above: Performed By: #### B MP, CMREP, LIPID #### [facility] [address] [place] [address] Dr. Jeimy Tenorio Creatinine [Mass/Vol] 0.76 mg/dL Normal 0.70-1.30 [facility] Comment on above: Performed By: #### B MP, CMREP, LIPID #### [facility] [address] [place] [address] Dr. Jeimy Tenorio EGFR-AF SERBIAN >60 Normal >=60 [facility] Comment on above: Performed By: #### B MP, CMREP, LIPID #### [facility] [address] [place] [address] Dr. Jeimy Tenorio EGFR-NON AF SERBIAN >60 Normal >=60 [facility] Comment on above: Performed By: #### B MP, CMREP, LIPID #### [facility] [address] [place] [address] Dr. Jeimy Tenorio Glucose [Mass/Vol] 95 mg/dL Normal 74-106 [facility] Comment on above: Performed By: #### B MP, CMREP, LIPID #### [facility] [address] [place] [address] Dr. Jeimy Tenorio Potassium [Moles/Vol] 4.5 mmol/L Normal 3.5-5.1 [facility] Comment on above: Performed By: #### B MP, CMREP, LIPID #### [facility] [address] [address] [address] Jeimy Tenorio Sodium [Moles/Vol] 138 mmol/L Normal 136-145 [facility] Comment on above: Performed By: #### B MP, CMREP, LIPID #### [facility] [address] [place] [address] Dr. Jeimy Tenorio Urea nitrogen [Mass/Vol] 18.0 mg/dL Normal 7.0-18.0 [facility] Comment on above: Performed By: #### B MP, CMREP, LIPID #### [facility] [address] [place] [address] Dr. Jeimy Tenorio Urea nitrogen/Creatinine [Mass ratio] 23.7 mg/mg Normal [facility] Comment on above: Performed By: #### B MP, CMREP, LIPID #### [facility] [address] [place] [address] Dr. Jeimy Tenorio TSHon 09-29-2022 TSH 1.694 uIU/mL Normal 0.358-3.740 [facility] Comment on above: Performed By: #### B MP, CMREP, LIPID #### [facility] [address] [place] [address] Dr. Jeimy Tenorio CARDIAC SAWYER 3-6on 2 CK [Catalytic activity/Vol] 47 U/L Normal 39-308 [facility] Comment on above: Performed By: #### B MP, CMREP, LIPID #### [facility] [address] [place] [address] Dr. Jeimy Tenorio CK.MB [Mass/Vol] 0.77 ng/mL Normal <=3.60 [facility] Comment on above: Performed By: #### B MP, CMREP, LIPID #### [facility] [address] [address] [address] Jeimy Tenorio HSTROP 6.9 pg/mL Normal 4.0-76.1 [facility] Comment on above: Result Comment: CUT- OFF POINTS HAVE BEEN ESTABLISHED BASED ON THE FOURTH UNIVERSAL DEFINITIONS OF MYOCARDIAL INFARCTION. THE UPPER REFERENCE LIMIT (URL) OF TROPONIN, DEFINED THE 99TH PERCENTILE OF cTnI DISTRIBUTION IN A REFERENCE POPULATION, HAS BEEN CONFIRMED THE DECISION THRESHOLD FOR NV DIAGNOSIS. Performed By: #### B MP, CMREP, LIPID #### [facility] [address] [address] [address] Jeimy Tenorio CK [Catalytic activity/Vol] 53 U/L Normal 39-308 [facility] Comment on above: Performed By: #### C BC #### [facility] [address] [address] [address] Jeimy Tenorio CK.MB [Mass/Vol] 0.80 ng/mL Normal <=3.60 [facility] Comment on above: Performed By: #### C BC #### [facility] [address] [address] [address] Jeimy Tenorio HSTROP 6.2 pg/mL Normal 4.0-76.1 [facility] Comment on above: Result Comment: CUT- OFF POINTS HAVE BEEN ESTABLISHED BASED ON THE FOURTH UNIVERSAL DEFINITIONS OF MYOCARDIAL INFARCTION. THE UPPER REFERENCE LIMIT (URL) OF TROPONIN, DEFINED THE 99TH PERCENTILE OF cTnI DISTRIBUTION IN A REFERENCE POPULATION, HAS BEEN CONFIRMED THE DECISION THRESHOLD FOR [place] DIAGNOSIS. Performed By: #### C BC #### [facility] [address] [address] [address] Jeimy Tenorio CBC AUTO DIFFon 06-12-2022 BASO # 0.1 103/ul Normal 0.0-0.1 [facility] Comment on above: Performed By: #### C BC #### [facility] [address] [address] [address] Jeimy Tenorio Basophils/100 WBC (Bld) 0.9 % Normal 0.2-2.0 [facility] Comment on above: Performed By: #### C BC #### [facility] [address] [place] [address] Dr. Jeimy Tenorio EO # 0.3 103/ul Normal 0.0-0.7 [facility] Comment on above: Performed By: #### C BC #### [facility] [address] [place] [address] Dr. Jeimy Tenorio Eosinophils/100 WBC (Bld) 5.2 % Normal 0.9-7.0 [facility] Comment on above: Performed By: #### C BC #### [facility] [address] [place] [address] Dr. Jeimy Tenorio Erythrocyte distribution width (RBC) [Ratio] 13.0 % Normal 11.0-15.0 [facility] Comment on above: Performed By: #### C BC #### [facility] [address] [place] [address] Dr. Jeimy Tenorio Hematocrit (Bld) [Volume fraction] 39.1 % Critically low 42.0-54.0 [facility] Comment on above: Performed By: #### C BC #### [facility] [address] [place] [address] Dr. Jeimy Tenorio Hemoglobin (Bld) [Mass/Vol] 13.2 g/dL Critically low 14.0-18.0 [facility] Comment on above: Performed By: #### C BC #### [facility] [address] [place] [address] Dr. Jeimy Tenorio IG # 0.03 10e3/ul Normal 0.00-0.03 [facility] Comment on above: Performed By: #### C BC #### [facility] [address] [place] [address] Dr. Jeimy Tenorio IG % 0.5 % Normal 0.0-0.5 [facility] Comment on above: Performed By: #### C BC #### [facility] [address] [place] [address] Dr. Jeimy Tenorio LYMPH # 1.7 103/ul Normal 1.2-3.8 [facility] Comment on above: Performed By: #### C BC #### [facility] [address] [place] [address] Dr. Jeimy Tenorio Lymphocytes/100 WBC (Bld) 26.0 % Normal 20.5-60.0 [facility] Comment on above: Performed By: #### C BC #### [facility] [address] [place] [address] Dr. Jeimy Tneorio MANUAL DIFF REQ NO Normal [facility] Comment on above: Performed By: #### C BC #### [facility] [address] [place] [address] Dr. Jeimy Tenorio MCH (RBC) [Entitic mass] 33.2 pg Normal 25.9-34.0 [facility] Comment on above: Performed By: #### C BC #### [facility] [address] [place] [address] Dr. Jeimy Tenoiro MCHC (RBC) [Mass/Vol] 33.8 g/dL Normal 29.9-35.2 [facility] Comment on above: Performed By: #### C BC #### [facility] [address] [place] [address] Dr. Jeimy Tenorio MCV (RBC) [Entitic vol] 98.5 fL Critically high 80.0-94.0 [facility] Comment on above: Performed By: #### C BC #### [facility] [address] [place] [address] Dr. Jeimy Tenorio MONO # 0.8 103/ul Normal 0.3-0.8 [facility] Comment on above: Performed By: #### C BC #### [facility] [address] [place] [address] Dr. Jeimy Tenorio Monocytes/100 WBC (Bld) 12.2 % Critically high 1.7-12.0 [facility] Comment on above: Performed By: #### C BC #### [facility] [address] [place] [address] Dr. Jeimy Tenorio NEUT # 3.6 103/ul Normal 1.4-6.5 [facility] Comment on above: Performed By: #### C BC #### [facility] [address] [address] [address] Jeimy Tenorio Neutrophils/100 WBC (Bld) 55.2 % Normal 43.0-75.0 [facility] Comment on above: Performed By: #### C BC #### [facility] [address] [place] [address] Dr. Jeimy Tenorio Platelet mean volume (Bld) [Entitic vol] 9.9 fL Normal 9.5-13.5 [facility] Comment on above: Performed By: #### C BC #### [facility] [address] [address] [address] Jeimy Tenorio PLT 174 103/ul Normal 150-450 [facility] Comment on above: Performed By: #### C BC #### [facility] [address] [place] [address] Dr. Jeimy Tenorio RBC 3.97 106/ul Critically low 4.70-6.10 [facility] Comment on above: Performed By: #### C BC #### [facility] [address] [place] [address] Dr. Jeimy Tenorio WBC 6.5 103/ul Normal 4.0-11.0 [facility] Comment on above: Performed By: #### C BC #### [facility] [address] [place] [address] Dr. Jeimy Tenorio CTA CHEST WO W [...] Date: 2022-06-12 00:21 Normal [facility] Covid-19 PCR (CVDTB)on 05-22 SARS-CoV-2 (COVID-19) RNA ALEX+probe Ql (Unsp spec) Not detected Normal NOT DETECTED [facility] Comment on above: Result Comment: When [...] for this test is supported by the [employer] In[employer] of [employer] and Human Service's declaration that [...] B MP, CMREP, LIPID #### [facility] [address] [address] [address] Jeimy Tenorio ER URINE PROFILEon 2 Bilirubin Ql (U) Negative Normal NEGATIVE [facility] Comment on above: Performed By: #### E RUR #### [facility] [address] [place] [address] Dr. Jeimy Tenorio Clarity (U) CLEAR Normal CLEAR [facility] Comment on above: Performed By: #### E RUR #### [facility] [address] [place] [address] Dr. Jeimy Tenorio Color (U) LT. YELLOW Normal YELLOW [facility] Comment on above: Performed By: #### E RUR #### [facility] [address] [place] [address] Dr. Jeimy BALES A micrscopic examination will be performed if indicated. Normal [facility] Comment on above: Performed By: #### E RUR #### [facility] [address] [place] [address] Dr. Jeimy Tenorio Glucose Ql (U) Negative Normal NEGATIVE [facility] Comment on above: Performed By: #### E RUR #### [facility] [address] [place] [address] Dr. Jeimy Tenorio Hemoglobin Ql (U) Negative Normal NEGATIVE [facility] Comment on above: Performed By: #### E RUR #### [facility] [address] [place] [address] Dr. Jeimy Tenorio Ketones Ql (U) TRACE Abnormal NEGATIVE [facility] Comment on above: Performed By: #### E RUR #### [facility] [address] [place] [address] Dr. Jeimy Tenorio LEUKOCYTES Negative Normal NEGATIVE [facility] Comment on above: Performed By: #### E RUR #### [facility] [address] [place] [address] Dr. Jeimy Tenorio Nitrite Ql (U) Negative Normal NEGATIVE [facility] Comment on above: Performed By: #### E RUR #### [facility] [address] [place] [address] Dr. Jeimy Tenorio pH (U) 5.5 [pH] Normal 5-9 [facility] Comment on above: Performed By: #### E RUR #### [facility] [address] [place] [address] Dr. Jeimy Tenorio SPEC GRAVITY 1.010 Normal 1.005-<=1.025 [facility] Comment on above: Performed By: #### E RUR #### [facility] [address] [place] [address] Dr. Jeimy Tenorio UA PROTEIN Negative Normal NEGATIVE/ TRACE [facility] Comment on above: Performed By: #### E RUR #### [facility] [address] [place] [address] Dr. Jeimy Tenorio UR MICRO IND NOT INDICATED Normal [facility] Comment on above: Performed By: #### E RUR #### [facility] [address] [place] [address] Dr. Jeimy Tenorio Urobilinogen Qn (U) 0.2 {Raphael'U}/dL Normal 0.2 - 1. 0 [facility] Comment on above: Performed By: #### E RUR #### [facility] [address] [place] [address] Dr. Jeimy Tenorio GLYCOHEMOGLOBIN A1Con 2021 ADA RECOMMENDATION SEE BELOW Normal [facility] Comment on above: Result Comment: ADA RECOMMENDED LIMIT 4.0 - 6.0 ADA THERAPEUTIC TARGET < 7.0 ACTION SUGGESTED > 7.0 Performed By: #### C BC #### [facility] [address] [place] [address] Dr. Jeimy Tenorio Glucose [Mass/Vol] 103 mg/dL Normal [facility] Comment on above: Performed By: #### C BC #### [facility] [address] [place] [address] Dr. Jeimy Tenorio HbA1c (Bld) [Mass fraction] 5.2 % Normal 4.5-6.2 [facility] Comment on above: Performed By: #### C BC #### [facility] [address] [place] [address] Dr. Jeimy Tenorio LIPID PROFILEon 06-12-2022 CHOL-HDL RATIO NORM SEE BELOW Normal [facility] Comment on above: Result Comment: 3.3 - 4.4 LOW RISK 4.4 - 7.1 AVERAGE RISK 7.1 - 11.0 MODERATE RISK >11.0 HIGH RISK Performed By: #### B MP, CMREP, LIPID #### [facility] [address] [address] [address] Jeimy Tenorio Cholesterol [Mass/Vol] 142 mg/dL Normal <=200 [facility] Comment on above: Performed By: #### B MP, CMREP, LIPID #### [facility] [address] [address] [address] Jeimy Tenorio Cholesterol in HDL [Mass/Vol] 49 mg/dL Normal 40-60 [facility] Comment on above: Performed By: #### B MP, CMREP, LIPID #### [facility] [address] [place] [address] Dr. Jeimy Tenorio Cholesterol in LDL [Mass/Vol] 64.6 mg/dL Normal [facility] Comment on above: Performed By: #### B MP, CMREP, LIPID #### [facility] [address] [place] [address] Dr. Jeimy Tenorio Cholesterol.total/Ch olesterol in HDL [Mass ratio] 2.9 {ratio} Normal [facility] Comment on above: Performed By: #### B MP, CMREP, LIPID #### [facility] [address] [place] [address] Dr. Jeimy Tenorio HDL NORMAL > or = 60 mg/dl - LO W CARDIOVASCULAR RISK <40 mg/dl - HIGH CARDIOVASCULAR RISK Normal [facility] Comment on above: Performed By: #### B MP, CMREP, LIPID #### [facility] [address] [place] [address] Dr. Jeimy Tenorio LDL CALC NORMAL SEE BELOW Normal [facility] Comment on above: Result Comment: <100 mg/dl OPTIMAL 100 - 129 mg/dl NEAR OR ABOVE OPTIMAL 130 - 159 mg/dl BORDERLINE HIGH 160 - 189 mg/dl HIGH >190 mg/dl VERY HIGH Performed By: #### B MP, CMREP, LIPID #### [facility] [address] [place] [address] Dr. Jeimy Tenorio Triglyceride [Mass/Vol] 142 mg/dL Normal <=150 [facility] Comment on above: Performed By: #### B MP, CMREP, LIPID #### [facility] [address] [address] [address] Jeimy Tenorio VLDL CALC 28.4 mg/dL Normal [facility] Comment on above: Performed By: #### B MP, CMREP, LIPID #### [facility] [address] [place] [address] Dr. Jeimy Tenorio PROF CHEM 8 (BAS METB)on Anion gap [Moles/Vol] 10.1 mmol/L Normal [facility] Comment on above: Performed By: #### B MP, CMREP, LIPID #### [facility] [address] [place] [address] Dr. Jeimy Tenorio Calcium [Mass/Vol] 8.0 mg/dL Critically low 8.5-10.1 [facility] Comment on above: Performed By: #### B MP, CMREP, LIPID #### [facility] [address] [place] [address] Dr. Jeimy Tenorio Chloride [Moles/Vol] 104 mmol/L Normal 98-107 [facility] Comment on above: Performed By: #### B MP, CMREP, LIPID #### [facility] [address] [place] [address] Dr. Jeimy Tenorio CO2 [Moles/Vol] 27.0 mmol/L Normal 21.0-32.0 [facility] Comment on above: Performed By: #### B MP, CMREP, LIPID #### [facility] [address] [place] [address] Dr. Jeimy Tenorio Creatinine [Mass/Vol] 0.79 mg/dL Normal 0.70-1.30 [facility] Comment on above: Performed By: #### B MP, CMREP, LIPID #### [facility] [address] [place] [address] Dr. Jeimy Tenorio EGFR-AF SERBIAN >60 Normal >=60 [facility] Comment on above: Performed By: #### B MP, CMREP, LIPID #### [facility] [address] [place] [address] Dr. Jeimy Tenorio EGFR-NON AF SERBIAN >60 Normal >=60 [facility] Comment on above: Performed By: #### B MP, CMREP, LIPID #### [facility] [address] [address] [address] Jeimy Tenorio Glucose [Mass/Vol] 101 mg/dL Normal 74-106 [facility] Comment on above: Performed By: #### B MP, CMREP, LIPID #### [facility] [address] [address] [address] Jeimy Tenorio Potassium [Moles/Vol] 4.1 mmol/L Normal 3.5-5.1 [facility] Comment on above: Performed By: #### B MP, CMREP, LIPID #### [facility] [address] [place] [address] Dr. Jeimy Tenorio Sodium [Moles/Vol] 137 mmol/L Normal 136-145 [facility] Comment on above: Performed By: #### B MP, CMREP, LIPID #### [facility] [address] [place] [address] Dr. Jeimy Tenorio Urea nitrogen [Mass/Vol] 15.0 mg/dL Normal 7.0-18.0 [facility] Comment on above: Performed By: #### B MP, CMREP, LIPID #### [facility] [address] [place] [address] Dr. Jeimy Tenorio Urea nitrogen/Creatinine [Mass ratio] 19.0 mg/mg Normal [facility] Comment on above: Performed By: #### B MP, CMREP, LIPID #### [facility] [address] [place] [address] Dr. Jeimy Tenorio CARDIAC SAWYER ADMITon 022 CK [Catalytic activity/Vol] 50 U/L Normal 39-308 [facility] Comment on above: Performed By: #### C BC #### [facility] Laboratory [address] [place] [address] Dr. Jeimy Tenorio CK.MB [Mass/Vol] 0.80 ng/mL Normal <=3.60 [facility] Comment on above: Performed By: #### C BC #### [facility] [address] [place] [address] Dr. Jeimy Tenorio HSTROP 5.2 pg/mL Normal 4.0-76.1 [facility] Comment on above: Result Comment: CUT- OFF POINTS HAVE BEEN ESTABLISHED BASED ON THE FOURTH UNIVERSAL DEFINITIONS OF MYOCARDIAL INFARCTION. THE UPPER REFERENCE LIMIT (URL) OF TROPONIN, DEFINED THE 99TH PERCENTILE OF cTnI DISTRIBUTION IN A REFERENCE POPULATION, HAS BEEN CONFIRMED THE DECISION THRESHOLD FOR NV DIAGNOSIS. Performed By: #### C BC #### [facility] [address] [place] [address] Dr. Jeimy Tenorio MAGALIE 41 ng/mL Normal 16-96 [facility] Comment on above: Performed By: #### C BC #### [facility] [address] [place] [address] Dr. Jeimy Tenorio CBC AUTO DIFFon 06-11-2022 BASO # 0.0 103/ul Normal 0.0-0.1 [facility] Comment on above: Performed By: #### C BC #### [facility] [address] [place] [address] Dr. Jeimy Tenorio Basophils/100 WBC (Bld) 0.6 % Normal 0.2-2.0 [facility] Comment on above: Performed By: #### C BC #### [facility] [address] [place] [address] Dr. Jeimy Tenorio EO # 0.4 103/ul Normal 0.0-0.7 [facility] Comment on above: Performed By: #### C BC #### [facility] [address] [place] [address] Dr. Jeimy Tenorio Eosinophils/100 WBC (Bld) 4.9 % Normal 0.9-7.0 [facility] Comment on above: Performed By: #### C BC #### [facility] [address] [place] [address] Dr. Jeimy Tenorio Erythrocyte distribution width (RBC) [Ratio] 13.1 % Normal 11.0-15.0 [facility] Comment on above: Performed By: #### C BC #### [facility] [address] [place] [address] Dr. Jeimy Tenorio Hematocrit (Bld) [Volume fraction] 38.1 % Critically low 42.0-54.0 [facility] Comment on above: Performed By: #### C BC #### [facility] [address] [place] [address] Dr. Jeimy Tenorio Hemoglobin (Bld) [Mass/Vol] 13.0 g/dL Critically low 14.0-18.0 [facility] Comment on above: Performed By: #### C BC #### [facility] [address] [place] [address] Dr. Jeimy Tenorio IG # 0.02 10e3/ul Normal 0.00-0.03 [facility] Comment on above: Performed By: #### C BC #### [facility] [address] [place] [address] Dr. Jeimy Tenorio IG % 0.3 % Normal 0.0-0.5 [facility] Comment on above: Performed By: #### C BC #### [facility] [address] [place] [address] Dr. Jeimy Tenorio LYMPH # 1.7 103/ul Normal 1.2-3.8 [facility] Comment on above: Performed By: #### C BC #### [facility] [address] [place] [address] Dr. Jeimy Tenorio Lymphocytes/100 WBC (Bld) 22.9 % Normal 20.5-60.0 [facility] Comment on above: Performed By: #### C BC #### [facility] [address] [place] [address] Dr. Jeimy Tenorio MANUAL DIFF REQ NO Normal [facility] Comment on above: Performed By: #### C BC #### [facility] [address] [place] [address] Dr. Jeimy Tenorio MCH (RBC) [Entitic mass] 33.5 pg Normal 25.9-34.0 [facility] Comment on above: Performed By: #### C BC #### [facility] [address] [place] [address] Dr. Jeimy Tenorio MCHC (RBC) [Mass/Vol] 34.1 g/dL Normal 29.9-35.2 [facility] Comment on above: Performed By: #### C BC #### [facility] [address] [place] [address] Dr. Jeimy Tenorio MCV (RBC) [Entitic vol] 98.2 fL Critically high 80.0-94.0 [facility] Comment on above: Performed By: #### C BC #### [facility] [address] [place] [address] Dr. Jeimy Tenorio MONO # 0.8 103/ul Normal 0.3-0.8 [facility] Comment on above: Performed By: #### C BC #### [facility] [address] [place] [address] Dr. Jeimy Tenorio Monocytes/100 WBC (Bld) 11.5 % Normal 1.7-12.0 [facility] Comment on above: Performed By: #### C BC #### [facility] [address] [place] [address] Dr. Jeimy Tenorio NEUT # 4.3 103/ul Normal 1.4-6.5 [facility] Comment on above: Performed By: #### C BC #### [facility] [address] [place] [address] Dr. Jeimy Tenorio Neutrophils/100 WBC (Bld) 59.8 % Normal 43.0-75.0 [facility] Comment on above: Performed By: #### C BC #### [facility] [address] [place] [address] Dr. Jeimy Tenorio Platelet mean volume (Bld) [Entitic vol] 9.8 fL Normal 9.5-13.5 [facility] Comment on above: Performed By: #### C BC #### [facility] [address] [place] [address] Dr. Jeimy Tenorio PLT 181 103/ul Normal 150-450 [facility] Comment on above: Performed By: #### C BC #### [facility] [address] [place] [address] Dr. Jeimy Tenorio RBC 3.88 106/ul Critically low 4.70-6.10 [facility] Comment on above: Performed By: #### C BC #### [facility] [address] [place] [address] Dr. Jeimy Tenorio WBC 7.2 103/ul Normal 4.0-11.0 [facility] Comment on above: Performed By: #### C BC #### [facility] [address] [place] [address] Dr. Jeimy Tenorio D-DIMERon 06-11-2022 D-DIMER 0.63 mg/L FEU Critically high <=0.59 [facility] Comment on above: Performed By: #### D DIM #### [facility] [address] [place] [address] Dr. Jeimy Tenorio D-DIMER COMMENTS SEE BELOW Normal [facility] Comment on above: Result Comment: [...] By: #### D DIM #### [facility] [address] [place] [address] Dr. Jeimy Tenorio PROF 14(COMP METB)on 022 Albumin [Mass/Vol] 3.3 g/dL Critically low 3.4-5.0 [facility] Comment on above: Performed By: #### C BC #### [facility] [address] [place] [address] Dr. Jeimy Tenorio Albumin/Globulin [Mass ratio] 0.8 {ratio} Normal [facility] Comment on above: Performed By: #### C BC #### [facility] [address] [place] [address] Dr. Jeimy Tenorio ALP [Catalytic activity/Vol] 160 U/L Critically high 46-116 [facility] Comment on above: Performed By: #### C BC #### [facility] [address] [address] [address] Jeimy Tenorio ALT [Catalytic activity/Vol] 26 U/L Normal 16-63 [facility] Comment on above: Performed By: #### C BC #### [facility] [address] [address] [address] Jeimy Tenorio Anion gap [Moles/Vol] 10.4 mmol/L Normal [facility] Comment on above: Performed By: #### C BC #### [facility] [address] [address] [address] Jeimy Tenorio AST [Catalytic activity/Vol] 16 U/L Normal 15-37 [facility] Comment on above: Performed By: #### C BC #### [facility] [address] [place] [address] Dr. Jeimy Tenorio Bilirubin [Mass/Vol] 0.2 mg/dL Normal 0.2-1.0 [facility] Comment on above: Performed By: #### C BC #### [facility] [address] [place] [address] Dr. Jeimy Tenorio Calcium [Mass/Vol] 8.2 mg/dL Critically low 8.5-10.1 [facility] Comment on above: Performed By: #### C BC #### [facility] [address] [place] [address] Dr. Jeimy Tenorio Chloride [Moles/Vol] 105 mmol/L Normal 98-107 [facility] Comment on above: Performed By: #### C BC #### [facility] [address] [place] [address] Dr. Jeimy Tenorio CO2 [Moles/Vol] 26.5 mmol/L Normal 21.0-32.0 [facility] Comment on above: Performed By: #### C BC #### [facility] [address] [place] [address] Dr. Jeimy Tenorio Creatinine [Mass/Vol] 0.96 mg/dL Normal 0.70-1.30 [facility] Comment on above: Performed By: #### C BC #### [facility] [address] [address] [address] Jeimy Tenorio EGFR-AF SERBIAN >60 Normal >=60 [facility] Comment on above: Performed By: #### C BC #### [facility] [address] [address] [address] Jeimy Tenorio EGFR-NON AF SERBIAN >60 Normal >=60 [facility] Comment on above: Performed By: #### C BC #### [facility] [address] [address] [address] Jeimy Tenorio Globulin (S) [Mass/Vol] 4.0 g/dL Normal [facility] Comment on above: Performed By: #### C BC #### [facility] [address] [address] [address] Jeimy Tenorio Glucose [Mass/Vol] 140 mg/dL Critically high 74-106 [facility] Comment on above: Performed By: #### C BC #### [facility] [address] [place] [address] Dr. Jeimy Tenorio Potassium [Moles/Vol] 3.9 mmol/L Normal 3.5-5.1 [facility] Comment on above: Performed By: #### C BC #### [facility] [address] [place] [address] Dr. Jeimy Tenorio Protein [Mass/Vol] 7.3 g/dL Normal 6.4-8.2 [facility] Comment on above: Performed By: #### C BC #### [facility] [address] [place] [address] Dr. Jeimy Tenorio Sodium [Moles/Vol] 138 mmol/L Normal 136-145 [facility] Comment on above: Performed By: #### C BC #### [facility] [address] [place] [address] Dr. Jeimy Tenorio Urea nitrogen [Mass/Vol] 15.0 mg/dL Normal 7.0-18.0 [facility] Comment on above: Performed By: #### C BC #### [facility] [address] [place] [address] Dr. Jeimy Tenorio Urea nitrogen/Creatinine [Mass ratio] 15.6 mg/mg Normal [facility] Comment on above: Performed By: #### C #### [facility] [address] [address] [address] Jeimy Tenorio [facility] 10-30-2021 Albumin [Mass/Vol] 4.3 g/dL Normal 3.6-5.1 [facility] Comment on above: Performed By: #### 7 13, 7600, 09165 #### [facility] of [place] [address] [employer] Pilot: Yash Campuzano MD Albumin/Globulin [Mass ratio] 1.3 {ratio} Normal 1.0-2.5 [facility] Comment on above: Performed By: #### 7 13, 0, 77450 #### [facility] [place] [address] [employer]: Yash Campuzano MD ALP [Catalytic activity/Vol] 152 U/L High 35-144 [facility] Comment on above: Performed By: #### 7 13, 0, 78650 #### [facility] of [place] [address] [employer] Pilot: Yash Campuzano MD ALT [Catalytic activity/Vol] 30 U/L Normal 9-46 [facility] Comment on above: Performed By: #### 7 13, 0, 76910 #### [facility] of [place] [address] [employer] Pilot: Yash Campuzano MD AST [Catalytic activity/Vol] 26 U/L Normal 10-35 [facility] Comment on above: Performed By: #### 7 13, 7600, 00038 #### [facility] of [place] [address] [employer] Pilot: Yash Campuzano MD Bilirubin [Mass/Vol] 0.4 mg/dL Normal 0.2-1.2 [facility] Comment on above: Performed By: #### 7 13, 7600, 72847 #### [facility] of [address] [place] [address] [employer] Pilot: Yash Campuzano MD BUN/CREATININE RATIO NOT APPLICABLE Normal 6-22 [facility] Comment on above: Performed By: #### 7 13, 7600, 86867 #### [facility] of [address], [address] [place] [address] [employer] Pilot: Yash Campuzano MD Calcium [Mass/Vol] 8.8 mg/dL Normal 8.6-10.3 [facility] Comment on above: Performed By: #### 7 13, 7600, 85118 #### [facility] of [address], [address] [place] [address] [employer] Pilot: Yash Campuzano MD Chloride [Moles/Vol] 104 mmol/L Normal 98-110 [facility] Comment on above: Performed By: #### 7 13, 7599, 10680 #### [facility] of [address], [address] [place] [address] [employer] Pilot: Yash Campuzano MD CO2 [Moles/Vol] 25 mmol/L Normal 20-32 [facility] Comment on above: Performed By: #### 7 13, 7599, 60604 #### [facility] of [address], [address] [place] [address] [employer] Pilot: Yash Campuzano MD Creatinine [Mass/Vol] 0.76 mg/dL Normal 0.70-1.25 [facility] Comment on above: Result Comment: For patients >49 years of age, the reference limit for Creatinine is approximately 13% higher for people identified as -Ethiopian. Performed By: #### 7 13, 7599, 76801 #### [facility] of [address], [address] [place] [address] [employer] Pilot: Yash Campuzano MD eGFR NON-AFR. SERBIAN 95 mL/min/1.73m2 Normal > OR = 60 [facility] Comment on above: Performed By: #### 7 , 7600, 82621 #### [facility] [address], [address] [place] [address] [employer] Pilot: Yash Campuzano MD GFR/1.73 sq M.predicted among blacks MDRD (S/P/Bld) [Vol rate/Area] 110 mL/min/{1.73_m2} Normal > OR = 60 [facility] Comment on above: Performed By: #### 7 , 7599, 82677 #### [facility] [place] [address] [employer] Pilot: Yash Campuzano MD Globulin (S) [Mass/Vol] 3.2 g/dL Normal 1.9-3.7 [facility] Comment on above: Performed By: #### 7 , 7599, 55192 #### [facility] [place] [address] [employer] Pilot: Yash Campuzano MD Glucose [Mass/Vol] 103 mg/dL High 65-99 [facility] Comment on above: Result Comment: Fasting reference interval For someone without known diabetes, a glucose value between 100 and 125 mg/dL is consistent with prediabetes and should be confirmed with a follow-up test. Performed By: #### 7 , 7599, 44636 #### [facility] [place] [address] [employer] Pilot: Yash Campuzano MD Potassium [Moles/Vol] 4.7 mmol/L Normal 3.5-5.3 [facility] Comment on above: Performed By: #### 7 , 7599, 41327 #### [facility] [place] [address] [employer] Pilot: Yash Campuzano MD Protein [Mass/Vol] 7.5 g/dL Normal 6.1-8.1 [facility] Comment on above: Performed By: #### 7 , 7599, 11724 #### [facility] [place] [address] [employer] Pilot: Yash Campuzano MD Sodium [Moles/Vol] 137 mmol/L Normal 135-146 [facility] Comment on above: Performed By: #### 7 , 7600, 31362 #### [facility] [address], [address] [place], [place] [id number] [employer] Pilot: Yash Campuzano MD Urea nitrogen [Mass/Vol] 15 mg/dL Normal 7-25 [facility] Comment on above: Performed By: #### 7 13, 7600, 07871 #### [facility] [address], [address] [place], [place] [address] Police Pilot: Yash Campuzano MD LIPID PANEL, [facility] 12-1 Cholesterol [Mass/Vol] 180 mg/dL Normal <200 [facility] Comment on above: Order Comment: FASTI NG:YES FASTING: YES Performed By: #### 7 13, 7600, 03225 #### [facility] [address], [address] [place] [address] [employer] Pilot: Yash Campuzano MD Cholesterol in HDL [Mass/Vol] 50 mg/dL Normal > OR = 40 [facility] Comment on above: Order Comment: FASTI NG:YES FASTING: YES Performed By: #### 7 13, 7600, 05654 #### [facility] [address], [address] [place] [address] [employer] Pilot: Yash Campuzano MD Cholesterol in LDL [Mass/Vol] [...] LDL-C. Gennaro SS et al. KO. 2013;310(19): 9290-2750 (http://education.PlayerTakesAll.Glass [employer] Marker/faq/IVX681) Performed By: #### 7 13, 7600, 60153 #### [facility] [address], [address] [place], [place] [id number] [employer] Pilot: Yash Campuzano MD Cholesterol.total/Ch olesterol in HDL [Mass ratio] 3.6 {ratio} Normal <5.0 [facility] Comment on above: Order Comment: FASTI NG:YES FASTING: YES Performed By: #### 7 , 7599, 84460 #### [facility] [address], [address] [place] [address] [employer] Pilot: Yash Campuzano MD NON HDL CHOLESTEROL 130 mg/dL (calc) High <130 [facility] Comment on above: Order Comment: FASTI NG:YES FASTING: YES Result Comment: For patients with diabetes plus 1 major ASCVD risk factor, treating to a non-HDL-C goal of <100 mg/dL (LDL-C of <70 mg/dL) is considered a therapeutic option. Performed By: #### 7 , 7599, 87254 #### [facility] [place] [address] [employer] Pilot: Yash Campuzano MD Triglyceride [Mass/Vol] 280 mg/dL High <150 [facility] Comment on above: Order Comment: FASTI NG:YES FASTING: YES Result Comment: If a non-fasting specimen was collected, consider repeat triglyceride testing on a fasting specimen if clinically indicated. Camarillo et al. J. of Clin. Lipidol. 2015;9:129-169. Performed By: #### 7 , 7599, 84746 #### [facility] [place] [address] [employer] Pilot: Yash Campuzano MD PHENYTOINon 10-30-2021 Phenytoin [Mass/Vol] 18.9 ug/mL Normal 10.0-20.0 [facility] Comment on above: Performed By: #### 7 , 7599, 40426 #### [facility] [place] [address] [employer] Pilot: Yash Campuzano MD CBC (INCLUDES DIFF/PLT)on Basophils (Bld) [#/Vol] 0.071 10*3/uL Normal 0-200 [facility] Comment on above: Performed By: #### 7 , 557, 6399 #### [facility] of [address], [address] [place] [address] [employer] Pilot: Yash Campuzano MD Basophils/100 WBC (Bld) 1.2 % Normal [facility] Comment on above: Performed By: #### 7 , 760, 6399 #### [facility] of [address], [address] [place] [address] Police Pilot: Yash Campuzano MD Eosinophils (Bld) [#/Vol] 0.277 10*3/uL Normal 15-500 [facility] Comment on above: Performed By: #### 7 , 7599, 6399 #### [facility] of [address], [address] [place] [address] Police Pilot: Yash Campuzano MD Eosinophils/100 WBC (Bld) 4.7 % Normal [facility] Comment on above: Performed By: #### 7 , 7599, 6399 #### [facility] of [address], [address] [place] [address] Police Pilot: Yash Campuzano MD Erythrocyte distribution width (RBC) [Ratio] 12.8 % Normal 11.0-15.0 [facility] Comment on above: Performed By: #### 7 , 7599, 6399 #### [facility] of [place] [address] [employer] Pilot: Yash Campuzano MD Hematocrit (Bld) [Volume fraction] 42.1 % Normal 38.5-50.0 [facility] Comment on above: Performed By: #### 7 , 7599, 6399 #### [facility] of [address], [address] [place] [address] Police Pilot: Yash Campuzano MD Hemoglobin (Bld) [Mass/Vol] 14.9 g/dL Normal 13.2-17.1 [facility] Comment on above: Performed By: #### 7 , 7599, 6399 #### [facility] [place] [address] [employer] Pilot: Yash Campuzano MD Lymphocytes (Bld) [#/Vol] 1.068 10*3/uL Normal 850-3900 [facility] Comment on above: Performed By: #### 7 13, 7599, 6399 #### [facility] [place] [address] [employer] Pilot: Yash Campuzano MD Lymphocytes/100 WBC (Bld) 18.1 % Normal [facility] Comment on above: Performed By: #### 7 , 7599, 6399 #### [facility] [place] [address] [employer] Pilot: Yash Campuzano MD MCH (RBC) [Entitic mass] 32.9 pg Normal 27.0-33.0 [facility] Comment on above: Performed By: #### 7 , 7599, 6399 #### [facility] [place] [address] [employer] Pilot: Yash Campuzano MD MCHC (RBC) [Mass/Vol] 35.4 g/dL Normal 32.0-36.0 [facility] Comment on above: Performed By: #### 7 , 7599, 6399 #### [facility] [place] [address] [employer] Pilot: Yash Campuzano MD MCV (RBC) [Entitic vol] 92.9 fL Normal 80.0-100.0 [facility] Comment on above: Performed By: #### 7 , 7599, 6399 #### [facility] [place] [address] [employer] Pilot: Yash Campuzano MD Monocytes (Bld) [#/Vol] 0.531 10*3/uL Normal 200-950 [facility] Comment on above: Performed By: #### 7 , 7599, 6399 #### [facility] [place] [address] [employer] Pilot: Yash Campuzano MD Monocytes/100 WBC (Bld) 9.0 % Normal [facility] Comment on above: Performed By: #### 7 13, 7599, 6399 #### [facility] of [address], [address] [place] [address] Police Pilot: Yash Campuzano MD Neutrophils (Bld) [#/Vol] 3.953 10*3/uL Normal 4614-8170 [facility] Comment on above: Performed By: #### 7 13, 7599, 6399 #### [facility] of [address], [address] [place] [address] Police Pilot: Yash Campuzano MD Neutrophils/100 WBC (Bld) 67 % Normal [facility] Comment on above: Performed By: #### 7 13, 7599, 6399 #### [facility] [place] [address] [employer] Pilot: Yash Campuzano MD Platelet mean volume (Bld) [Entitic vol] 11.0 fL Normal 7.5-12.5 [facility] Comment on above: Performed By: #### 7 13, 7599, 6399 #### [facility] of [place] [address] [employer] Pilot: Yash Campuzano MD Platelets (Bld) [#/Vol] 200 10*3/uL Normal 140-400 [facility] Comment on above: Performed By: #### 7 13, 7599, 6399 #### [facility] [place] [address] [employer] Pilot: Yash Campuzano MD RBC (Bld) [#/Vol] 4.53 10*6/uL Normal 4.20-5.80 [facility] Comment on above: Performed By: #### 7 13, 7599, 6399 #### [facility] [place] [address] [employer] Pilot: Yash Campuzano MD WBC (Bld) [#/Vol] 5.9 10*3/uL Normal 3.8-10.8 [facility] Comment on above: Performed By: #### 7 13, 7599, 6399 #### [facility] [address], [address] [place] [address] Police Pilot: Yash Campuzano MD LIPID PANEL, [facility] 03-22 Cholesterol [Mass/Vol] 218 mg/dL High <200 [facility] Comment on above: Order Comment: FASTI NG:YES FASTING: YES Performed By: #### 7 , 058, 3338 #### [facility] [address], [address] [place] [address] [employer] Pilot: Yash Campuzano MD Cholesterol in HDL [Mass/Vol] 55 mg/dL Normal > OR = 40 [facility] Comment on above: Order Comment: FASTI NG:YES FASTING: YES Performed By: #### 7 , 173, 2818 #### [facility] [address], [address] [place] [address] Police Pilot: Yash Campuzano MD Cholesterol in LDL [Mass/Vol] [...] LDL-C. Gennaro ALMANZAR et al. KO. 2013;310(19): 1811-7317 (http://education.PlayerTakesAll.Glass [employer] Marker/faq/TBI913) Performed By: #### 7 , 106, 4899 #### [facility] [address], [address] [place] [address] Police Pilot: Yash Campuzano MD Cholesterol.total/Ch olesterol in HDL [Mass ratio] 4.0 {ratio} Normal <5.0 [facility] Comment on above: Order Comment: FASTI NG:YES FASTING: YES Performed By: #### 7 , 672, 0992 #### [facility] [place] [address] [address] [employer] Pilot: Yash Campuzano MD NON HDL CHOLESTEROL 163 mg/dL (calc) High <130 [facility] Comment on above: Order Comment: FASTI NG:YES FASTING: YES Result Comment: For patients with diabetes plus 1 major ASCVD risk factor, treating to a non-HDL-C goal of <100 mg/dL (LDL-C of <70 mg/dL) is considered a therapeutic option. Performed By: #### 7 , 912, 1825 #### [facility] [place] [address] [employer] Pilot: Yash Campuzano MD Triglyceride [Mass/Vol] 200 mg/dL High <150 [facility] Comment on above: Order Comment: FASTI NG:YES FASTING: YES Result Comment: If a non-fasting specimen was collected, consider repeat triglyceride testing on a fasting specimen if clinically indicated. Marquise et al. J. of Clin. Lipidol. 2015;9:129-169. Performed By: #### 7 , 356, 7032 #### [facility] [place] [address] [employer] Pilot: Yash Campuzano MD PHENYTOINon 04-18-2021 Phenytoin [Mass/Vol] 25.0 ug/mL High 10.0-20.0 [facility] Comment on above: Performed By: #### 7 , 978, 5586 #### [facility] [place] [id number] Police Pilot: Yash Campuzano MD APTTon 11-20-2020 aPTT Coag (Bld) [Time] 33.4 s Normal 25.0-35.0 The [facility] Comment on above: Result Comment: [...] FOR THIS PURPOSE. Performed By: #### 5 3791, 75679 ####[facility] BNP EDon 11-20-2020 Natriuretic peptide B (Bld) [Mass/Vol] 111 pg/mL High 0-100 The [facility] Comment on above: Result Comment: Give n the appropriate clinical setting a BNP result of >100 pg/mL indicates congestive heart failure. Performed By: #### 3 0935 #### [facility] [address] CBC W/DIFFon 11-20-2020 ABS IMM GRANS 0.0 10*3/uL Normal 0.0-0.2 The [facility] Comment on above: Performed By: #### 5 0103 ####[facility] ABS NEUTROPHILS 3.9 10*3/uL Normal 1.6-7.6 The [facility] Comment on above: Performed By: #### 5 0103 ####[facility] [place] [address], [facility] Basophils (Bld) [#/Vol] 0.1 10*3/uL Normal 0.0-0.2 The [facility] Comment on above: Performed By: #### 5 0103 ####[facility] [place] [address], [facility] Basophils/100 WBC (Bld) 1.0 % Normal 0.0-1.0 The [facility] Comment on above: Performed By: #### 5 0103 ####[facility] [place] [address], [facility] Eosinophils (Bld) [#/Vol] 0.3 10*3/uL Normal 0.0-0.5 The [facility] Comment on above: Performed By: #### 5 0103 ####[facility] [place] [address], [place] Eosinophils/100 WBC (Bld) 5.1 % Normal 0.0-6.0 The [facility] Comment on above: Performed By: #### 5 0103 ####[facility] [address] Erythrocyte distribution width (RBC) [Ratio] 13.1 % Normal 11.5-15.0 [facility] Comment on above: Performed By: #### 5 0103 ####[facility] Hematocrit (Bld) [Volume fraction] 45.4 % Normal 39.0-50.0 The [facility] Comment on above: Performed By: #### 3 ####[address] Hemoglobin (Bld) [Mass/Vol] 14.8 g/dL Normal 13.0-17.0 The [facility] Comment on above: Performed By: #### 3 ####[address] IMMATURE GRANS 0.3 % Normal 0.0-1.0 The [facility] Comment on above: Performed By: #### 3 ####[facility] Lymphocytes (Bld) [#/Vol] 1.0 10*3/uL Low 1.2-4.0 The [facility] Comment on above: Performed By: #### 5 0103 ####[place] [address] Lymphocytes/100 WBC (Bld) 17.5 % Low 20.0-45.0 The [facility] Comment on above: Performed By: #### 5 3 ####[place] [address], [place] MCH (RBC) [Entitic mass] 32.5 pg Normal 27.0-33.0 The [facility] Comment on above: Performed By: #### 5 0103 ####[facility] MCHC (RBC) [Mass/Vol] 32.6 g/dL Normal 32.0-35.0 [facility] Comment on above: Performed By: #### 5 0103 ####[facility] MCV (RBC) [Entitic vol] 99.6 fL High 82.0-98.0 [facility] Comment on above: Performed By: #### 5 0103 ####[facility] Monocytes (Bld) [#/Vol] 0.6 10*3/uL Normal 0.1-1.0 The [facility] Comment on above: Performed By: #### 5 0103 ####[facility] MONOS 9.4 % Normal 5.0-12.0 [facility] Comment on above: Performed By: #### 5 0103 ####[facility] Neutrophils/100 WBC (Bld) 66.7 % Normal 40.0-72.0 [facility] Comment on above: Performed By: #### 5 0103 ####[facility] Nucleated RBC/100 WBC (Bld) [Ratio] 0 % Normal 0-0 [facility] Comment on above: Performed By: #### 5 3 ####[facility] PLAT CNT 175 10*3/uL Normal 150-400 The [facility] Comment on above: Performed By: #### 5 0103 ####[facility] RBC (Bld) [#/Vol] 4.56 10*6/uL Normal 4.20-5.70 The [facility] Comment on above: Performed By: #### 5 0103 ####[facility] WBC (Bld) [#/Vol] 5.88 10*3/uL Normal 4.00-10.60 The [facility] Comment on above: Performed By: #### 5 0103 ####[facility] COMP METABOLIC PANELon 11-20 Albumin [Mass/Vol] 4.0 g/dL Normal 3.5-5.7 [facility] Comment on above: Performed By: #### 0 0121, 85114, 70242, 31847 #### [facility] [address] ALKALINE PHOSPH 130 IU/L High 34-104 [facility] Comment on above: Performed By: #### 0 0121, 48431, 93205, 23319 #### [facility] 3000 [facility]. [address] ALT [Catalytic activity/Vol] 18 U/L Normal 7-52 The [facility] Comment on above: Performed By: #### 0 0121, 68618, 73822, 13919 #### [facility] 3000 [facility]. [address] AST [Catalytic activity/Vol] 19 U/L Normal 13-39 [facility] Comment on above: Performed By: #### 0 0121, 82178, 78601, 67845 #### [facility] [address] [place] [address], [place] Bilirubin [Mass/Vol] 0.4 mg/dL Normal 0.3-1.0 [facility] Comment on above: Performed By: #### 0 0121, 46979, 62010, 50236 #### [facility] [address] [place] [address], [place] Calcium [Mass/Vol] 9.0 mg/dL Normal 8.6-10.3 [facility] Comment on above: Performed By: #### 0 0121, 77159, 11098, 95627 #### [facility] [address] [place] [address], [place] Chloride [Moles/Vol] 103 mmol/L Normal 98-107 [facility] Comment on above: Performed By: #### 0 0121, 21691, 75754, 15335 #### [facility] [address] [place] [address], [place] CO2 [Moles/Vol] 28 mmol/L Normal 21-31 [facility] Comment on above: Performed By: #### 0 0121, 97896, 10004, 91658 #### [facility] [address] [place] [address], [place] Creatinine [Mass/Vol] 0.77 mg/dL Normal 0.70-1.30 [facility] Comment on above: Performed By: #### 0 0121, 73265, 79833, 50288 #### [facility] [address] [place] [address], [place] GFR/1.73 sq M.predicted among blacks MDRD (S/P/Bld) [Vol rate/Area] mL/min/{1.73_m2} Normal >60 [facility] Comment on above: Performed By: #### 0 0121, 17093, 14671, 43150 #### [facility] [address] [place] [address], [facility] GFR/1.73 sq M.predicted among non-blacks MDRD (S/P/Bld) [Vol rate/Area] mL/min/{1.73_m2} Normal >60 [facility] Comment on above: Performed By: #### 0 0121, 00296, 85279, 21447 #### [facility] [address] [place] [address], [place] Glucose [Mass/Vol] 88 mg/dL Normal 70-100 The [facility] Comment on above: Performed By: #### 0 0121, 12706, 08553, 50856 #### [facility] [address] [place] [address], [facility] Potassium [Moles/Vol] 4.9 mmol/L Normal 3.5-5.1 [facility] Comment on above: Performed By: #### 0 0121, 73665, 05186, 01405 #### [facility] [address] [place] [address], [facility] Protein [Mass/Vol] 7.3 g/dL Normal 6.0-8.3 The [facility] Comment on above: Performed By: #### 0 0121, 18638, 16549, 51990 #### [facility] [address] [place] [address], [place] Sodium [Moles/Vol] 138 mmol/L Normal 136-145 The [facility] Comment on above: Performed By: #### 0 0121, 07898, 61963, 00100 #### [facility] [address] [place] [address], [place] Urea nitrogen [Mass/Vol] 15 mg/dL Normal 7-25 [facility] Comment on above: Performed By: #### 0 0121, 67824, 63598, 71338 #### [facility] [address] [place] [address], [place] CTA HEADon 11-20-2020 CTA HEAD [facility] Department of Radiology [address] [place] [address] Patient Name: NAZARIO CORTES : 1955 Sex: M Age: Race: White Pt. Location: [facility] Patient Status: E Ordered Date: 11/20/2020 11:20:00 [...] stenosis of the major vessels of the [place]. origin of bilateral posterior cerebral arteries. IMPRESSION: Normal CTA of the brain. All CT scans at this facility use dose modulation, iterative reconstruction, and/or weight based dosing when appropriate to reduce radiation dose to as low as reasonably achievable. Electronically signed: Dhaval Bain. Transcribed by: [email or web address], User Resident: Electronically Signed by: DHAVAL BAIN @ 11/20/2020 12:58 PM Normal [facility] Comment on above: Order Comment: Bleed CTA NECKon 11-20-2020 CTA NECK [facility] Department of Radiology [address] [place] [id number] Patient Name: NAZARIO CORTES : 1955 Sex: M Age: Race: White Pt. Location: [facility] Patient Status: E Ordered Date: 11/20/2020 11:20:00 [...] viewed on a separate workstation. The [place] Symptomatic Carotid Endarterectomy Trial (NASCET) method for [...] achievable Electronically signed: Dhaval Bain. Transcribed by: [email or web address], User Resident: Electronically Signed by: DHAVAL BAIN @ 11/20/2020 12:57 PM Normal [facility] DIRECT BILIon 11-20-2020 Bilirubin.direct [Mass/Vol] 0.1 mg/dL Normal 0.0-0.2 [facility] Comment on above: Order Comment: Liver Battery conflicts with Comprehensive Metabolic Panel. Liver Battery canceled and Direct Bilirubin added. Performed By: #### 0 0121, 20845, 38660, 42466 #### [facility] [address] LIPASE BLOODon 11-20-2020 LIPASE 27 Units/L Normal 11-82 [facility] Comment on above: Performed By: #### 0 0121, 67924, 10369, 27683 #### [facility] [address] POC SARS COV2 ANTIGEN NEGATI VEon 11-20-2020 POC SARS COV2 ANTIGEN N Negative Normal NEGATIVE [facility] Comment on above: Result Comment: Test performed on [employer] System for rapid detection of SARS-CoV-2. Negative [...] management. Performed By: #### 3 1919 #### [facility] [address] [place] [address], [facility] PORTABLE CHEST 1 VIEWon PORTABLE CHEST 1 VIEW [facility] Department of Radiology [address] [place] [id number] Patient Name: NAAZRIO CORTES : 1955 Sex: M Age: Race: White Pt. Location: [facility] Patient Status: E Ordered Date: 11/20/2020 11:20:00 [...] reports Electronically signed: Dhaval Bain. Transcribed by: [email or web address], User Resident: JESSENIA ALFORD Electronically Signed by: DHAVAL BAIN @ 11/20/2020 12:32 PM I personally read this/these film(s) with this resident Normal [facility] Comment on above: Order Comment: evalu ate for Pneumonia PROTHROMBIN TIMEon 0 INR Coag (PPP) [Relative time] 0.95 {INR} Normal 0.91-1.16 [facility] Comment on above: Result Comment: ACCC P [...] CHEST 1995;[id number]. Performed By: #### 5 6101, 41079 ####[facility] [place] [address], [facility] PT Coag (PPP) [Time] 12.7 s Normal 12.3-14.8 [facility] Comment on above: Result Comment: ALL RESULTS MUST BE INTERPRETED WITH RESPECT TO BLOOD DRAWING ARTIFACT OR DILUTION ERROR OF ANTICOAGULANT AT THE TIME OF SAMPLING. Performed By: #### 5 6101, 93833 ####[facility] TROPONIN-Ion 11-20-2020 Troponin I.cardiac [Mass/Vol] 0.00 ng/mL Normal 0.00-0.04 [facility] Comment on above: Order Comment: No: D o not add to previous draw Result Comment: REFE RENCE RANGES: 0.00 - 0.14 ng/ml NEGATIVE 0.15 - 0.25 ng/ml INDETERMINATE > 0.25 ng/ml INDICATIVE OF AN M.I. Performed By: #### 3 5200 #### [facility] [address] Troponin I.cardiac [Mass/Vol] 0.00 ng/mL Normal 0.00-0.04 [facility] Comment on above: Result Comment: REFE RENCE RANGES: 0.00 - 0.14 ng/ml NEGATIVE 0.15 - 0.25 ng/ml INDETERMINATE > 0.25 ng/ml INDICATIVE OF AN M.I. Performed By: #### 0 0121, 38715, 32734, 29518 #### [facility] [address] Vital Signs Date Time Vital Sign Value Performing Clinician Facility 05-15-2024 15:36-0400 Body height 185.42 cm MD Jignesh Gonsalez Work Phone: [facility] 05-15-2024 15:36-0400 Body mass index (BMI) [Ratio] 36.9 kg/m2 MD Jignesh Gonsalez Work Phone: [facility] 05-15-2024 15:36-0400 Body temperature 97.5 [degF] MD Jignesh Gonsalez Work Phone: [facility] 05-15-2024 15:36-0400 Body weight 127 kg MD Jignesh Gonsalez Work Phone: [facility] 05-15-2024 15:36-0400 Diastolic blood pressure 74 mm[Hg] MD Jignesh Gonsalez Work Phone: [facility] 05-15-2024 15:36-0400 Heart rate 81 /min MD Jignesh Gonsalez Work Phone: [facility] 05-15-2024 15:36-0400 Respiratory rate 18 /min MD Jignesh Gonsalez Work Phone: [facility] 05-15-2024 15:36-0400 SaO2% (BldA) [Mass fraction] 93 % MD Jignesh Gonsalez Work Phone: [facility] 05-15-2024 15:36-0400 Systolic blood pressure 119 mm[Hg] MD Jignesh Gonsalez Work Phone: [facility] 04-23-2024 13:06-0400 Body height 185.42 cm [facility] 04-23-2024 13:06-0400 Body mass index (BMI) [Ratio] 36.9 kg/m2 [facility] 04-23-2024 13:06-0400 Body temperature 97.3 [degF] [facility] 04-23-2024 13:06-0400 Body weight 127 kg [facility] 04-23-2024 13:06-0400 Diastolic blood pressure 56 mm[Hg] [facility] 04-23-2024 13:06-0400 Heart rate 80 /min [facility] 04-23-2024 13:06-0400 Respiratory rate 18 /min [facility] 04-23-2024 13:06-0400 SaO2% (BldA) [Mass fraction] 97 % [facility] 04-23-2024 13:06-0400 Systolic blood pressure 106 mm[Hg] [facility] 07-05-2023 10:00-0400 Body height 185.42 cm Luiz Riggs Other [employer] Other 07-05-2023 10:00-0400 Body mass index (BMI) [Ratio] 37.86 kg/m2 Luiz Riggs Other [employer] Other 07-05-2023 10:00-0400 Body weight 130.18 kg Luiz Riggs Other [employer] Other 07-05-2023 10:00-0400 Diastolic blood pressure 76 mm[Hg] Luiz Riggs Other [employer] Other 07-05-2023 10:00-0400 Systolic blood pressure 126 mm[Hg] Luiz Riggs Other [employer] Other 04-06-2022 17:40-0400 Body height 185.42 cm Neelam Alexandra Other [employer] Other 04-06-2022 17:40-0400 Body mass index (BMI) [Ratio] 36.15 kg/m2 Neelam Alexandra Other [employer] Other 04-06-2022 17:40-0400 Body temperature 98 [degF] Neelam Alexandra Other [employer] Other 04-06-2022 17:40-0400 Body weight 124.29 kg Neelam Alexandra Other [employer] Other 04-06-2022 17:40-0400 Diastolic blood pressure 69 mm[Hg] Neelam Alexandra Other [employer] Other 04-06-2022 17:40-0400 Respiratory rate 18 /min Neelam Alexandra Other [employer] Other 04-06-2022 17:40-0400 SaO2% (BldA) [Mass fraction] 95 % Neelam Alexandra Other [employer] Other 04-06-2022 17:40-0400 Systolic blood pressure 123 mm[Hg] Neelam Blackburnmond Other [employer] Other 12-28-2021 17:00-0500 Body height 185.42 cm Alex Bonilla Other [employer] Other 12-28-2021 17:00-0500 Body mass index (BMI) [Ratio] 37.47 kg/m2 Alex Bonilla Other [employer] Other 12-28-2021 17:00-0500 Body weight 128.82 kg Alex Bonilla Other [employer] Other Encounters Encounter Date Encounter Type Care Provider Facility Start: 05-21-2024 End: 05-21-2024 ambulatory JIGNESH GONSALEZ Not Available Start: 05-16-2024 End: 05-16-2024 ambulatory IMELDA THOMPSON Not Available Start: 05-15-2024 End: 05-15-2024 ambulatory MD Jignesh Gonsalez Work Phone: [facility] Work Phone: Start: 05-15-2024 End: 05-15-2024 Patient encounter procedure MD Jignesh Gonsalez Work Phone: [facility] Work Phone: Start: 04-23-2024 End: 04-23-[address] [facility] Work Phone: Start: 04-23-2024 End: 04-23-2024 Patient encounter procedure [facility] Work Phone: Start: 04-17-2024 End: 04-17-2024 ambulatory CORNELIO COTTER Not Available Start: 03-07-2024 End: 03-07-2024 ambulatory JIGNESH GONSALEZ Not Available Start: 02-21-2024 End: 02-21-2024 ambulatory JIGNESH GONSALEZ Not Available Start: 01-11-2024 End: 01-11-2024 ambulatory SHAIKH TIESHA Not Available Start: 01-05-2024 End: 01-06-2024 ambulatory [facility] Start: 01-05-2024 End: 01-05-2024 ambulatory [facility] Start: 12-30-2023 ambulatory Chris CAMARILLO Facili ty:[facility] Start: 12-21-2023 Telephone encounter Epifanio dennison MD Work Phone: [facility] Start: 12-20-2023 ambulatory [facility] Start: 12-19-2023 End: 12-20-2023 ambulatory [facility]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
== END 2024-06-12 20:33 | disposition home or self-care (01) ==
LOC: SLEEP 20:32
PROVIDERS: PCP Family Medicine; Visit Provider Family Medicine
DX: G47.33 Obstructive sleep apnea (adult) (pediatric) (principal); R06.83 Snoring; E66.9 Obesity, unspecified; F32.A Depression, unspecified; R53.83 Other fatigue
CPT/HCPCS: 95811

== ENCOUNTER 2024-11-09 10:24 | Emergency (ER) | payer MEDICARE, MEDICAID, SELFPAY ==
[2024-11-09 10:28] VITALS: BP 134/70; PULSE 74; TEMP 36.8; O2SAT 96; BMI 39.1
--- NOTE | 2024-11-09 10:31 | XR_ITS ---
The [address] [address] Patient Name: GÓMEZ CORTES MRN: [id number] date: 1955 Sex: M Assigned Patient Location: ER Current Patient Location: MRI Accession/Order Number: [id number] Exam Date: 11/09/2024 10:30 Report Date: 11/09/2024 11:06 At the request of: SCARLET GREGORY Procedure: XR knee RT 4V PROCEDURE: XR knee RT 4V COMPARISON: None. HISTORY: injury c/o pain FINDINGS: BONES:No acute fracture or dislocation. Mild tricompartmental osteoarthropathy with marginal osteophyte formation. Enthesopathic patella at the quadriceps insertion SOFT TISSUES:Negative. No visible soft tissue swelling. EFFUSION:None visible. OTHER: Negative. XR/XR knee RT 4V IMPRESSION: Osteoarthritis with no acute fracture Electronically authenticated by: TRINIDAD BEAVER Date: 11/09/2024 11:06
--- NOTE | 2024-11-09 10:31 | XR_ITS ---
[address] [address] Patient Name: GÓMEZ CORTES MRN: [id number] date: 1955 Sex: M Assigned Patient Location: ER Current Patient Location: MRI Accession/Order Number: [id number] Exam Date: 11/09/2024 10:30 Report Date: 11/09/2024 11:08 At the request of: SCARLET GREGORY Procedure: XR hip RT 2V w/ pelvis PROCEDURE: XR hip RT 2V w/ pelvis COMPARISON: None. HISTORY: injury c/o pain FINDINGS: BONES:Moderate degenerative changes of the spine. Moderate bilateral hip osteoarthritis with joint space narrowing marginal osteophyte formation SOFT TISSUES:Negative. No visible soft tissue swelling. EFFUSION:None visible. OTHER: Negative. XR/XR hip RT 2V w/ pelvis IMPRESSION: Moderate osteoarthritis Electronically authenticated by: TRINIDAD BEAVER Date: 11/09/2024 11:08
--- OUTSIDE RECORDS SUMMARY | 2024-11-09 10:34 | XMS_ITS | CCD ---
Author Organization [facility] Care Team Providers Care Gate Technician Name Role Phone KARINA JAY Attending Unavailable SELF, REFERRED Referring Unavailable JOSE MCCLOUD Primary Care Unavailable JOHN MEJÍA Admitting Unavailable Alex Bonilla Unavailable Neelam Morris Unavailable AME, DR JOSE Danielson Admitting Unavailable FURLONG, DR JOSE Danielson Attending Unavailable WALLACE, DR JIGNESH Means Primary Care Unavailable FURLONG, DR JOSE Danielson Primary Care Unavailable CARRIE LAZO Consulting Unavailable FAWWAD, TONY H Admitting Unavailable FAWWAD TONY H Attending Unavailable FAWWAD, TONY H Consulting Unavailable PRASHANTH, MAMIE Consulting Unavailable HAY ., DR BUENROSTRO Admitting Unavailable HAY ., DR BUENROSTRO Attending Unavailable NADERER, DR JIGNESH Means Primary Care Unavailable WEST, DR TRINIDAD Cummins Consulting Unavailable LUZMARIA ., YONAS Consulting Unavailable NADERER, DR JIGNESH Means Primary Care Unavailable HAY ., DR BUENROSTRO Admitting Unavailable HAY ., DR BUENROSTRO Attending Unavailable HAY ., DR BUENROSTRO Consulting Unavailable EDWINALEJANDRO JUSTICE Consulting Unavailable NADERER, DR JIGNESH Means Primary [...] Unavailable BARBER, DR KELL Brizuela Consulting Unavailable MARCOSEREChata, DR JIGNESH Means Consulting Unavailable WALLACE, DR JIGNESH Means Admitting Unavailable WALLACE, DR JIGNESH Means Attending Unavailable WALLACE, DR JIGNESH Means Primary Care Unavailable BARBER, DR KELL Brizuela Consulting Unavailable NADERER, DR JIGNESH Means Consulting Unavailable Luiz Riggs Unavailable MD Luiz Riggs Attending Provider [phone] MD Jignesh Gonsalez Primary Care Provider JIGNESH GONSALEZ Primary Care Physician Jose Mccloud DO Primary Care Provider [phone] Chris CAMARILLO Attending Unavailable JIGNESH GONSALEZ Referring Unavailable Chris CAMARILLO Attending Unavailable MD Jignesh Gonsalez Primary Care Provider RIDGE Garcia Attending Provider [phone] OVITT, CORNELIO Referring Unavailable OVITT, CORNELIO Referring Unavailable NARADIONY ARECHIGAROGERIO Referring Unavailable OVITT, CORNELIO Attending Unavailable TRACIE, CORNELIO Attending Unavailable MD Jignesh Gonsalez Primary Care Provider RIDGE Garcia Attending Provider Jignesh Gonsalez MD Primary Care Provider [phone] Jignesh Gonsalez Primary Care Unavailable Joslyn Garcia Attending Unavailable Joslyn Garcia Admitting Unavailable Jignesh Gonsalez Primary Care Unavailable Joslyn Garcia Attending Unavailable Joslyn Garcia Admitting Unavailable Yancy Lawson Admitting Unavailable Jignesh Gonsalez Primary Care Unavailable Yancy Lawson Attending Unavailable JIGNESH GONSALEZ Attending Unavailable JIGNESH GONSALEZ Attending Unavailable SHAIKH MOTLEY Attending Unavailable JIGNESH GONSALEZ Attending Unavailable CORNELIO COTTER Attending Unavailable IMELDA THOMPSON Attending Unavailable JIGNESH GONSALEZ Attending Unavailable IMELDA THOMPSON Attending Unavailable IMELDA THOMPSON Referring Unavailable JIGNESH GONSALEZ Attending Unavailable CHARI VELA Attending Unavailable Allergies Allergy Classification Reported Allergen(s) Allergy Type Date of Onset Reaction(s) Facility Anti-Epileptic Agents (2 sources) gabapentin Drug Allergy 4 stomach upset, IV ONLY-Dizzy [facility]on[facility] (1 source) oxyCODONE Drug Allergy 4 Unknown Reaction [facility] (11 sources) gabapentin; Translations: [GABAPENTIN] Drug Allergy 0 stomach upset [facility] (2 sources) oxyCODONE Drug Allergy 0 [facility] (3 sources) Phenytoin; Translations: [Dilantin] Drug Allergy 0 [facility] (15 sources) gabapentin; Translations: [gabapentin] Drug Allergy 0 Unknown (qualifier value), Unknown [facility] (20 sources) oxyCODONE; Translations: [oxycodone] Drug Allergy 0 Difficulty breathing (finding), Angioedema, Unknown [facility] (11 sources) Phenytoin; Translations: [phenytoin] Drug Allergy 6 Dizziness (finding), Dizziness [facility] (1 source) Phenytoin; Translations: [PHENYTOIN SODIUM EXTENDED] Drug Allergy 6 [facility] (1 source) ALLERGIES NOT ON FILE; Translations: [ALLERGIES NOT ON FILE] Propensity to adverse reactions (disorder) [facility] (1 source) gabapentin Drug Allergy 4 [facility] (1 source) oxyCODONE Drug Allergy 4 [facility] (1 source) Phenytoin Drug Allergy 4 [facility] Medications Current Medications Medication Drug Class(es) Dates Sig (Normalized) Sig (Original) acetaminophen 325 mg / HYDROcodone bitartrate 5 mg oral tablet (16 sources) Opioid Agonist Start: 10-11-2024 End: 11-01-2024 take 1 tablet by mouth four times daily as needed for pain HYDROcodone-acetami nophen (Atkins) 5-325 MG tablet Indications: Degenerative lumbar spinal stenosis Take 1 tablet by mouth 4 (four) times a day as needed for severe pain for up to 7 days 28 tablet 10/25/2024 11/01/2024 Active Start: 04-23-2024 take 1 tablet by ambika th four times daily Hydrocodone-Acetaminophen Active 1 TAB P O Four times daily April 23, 2024 12:00am Atkins Active take 1 tablet by ambika th every six hours HYDROcodone-Acetaminophen 7.5-325 MG 1 tablet as needed Orally every 6 hrs Active aspirin 81 mg delayed release oral tablet (20 sources) Platelet Aggregation Inhibitor, Nonsteroidal Anti-inflammatory Drug Start: 04-23-2024 take 81 mg by mouth once daily Aspirin Active 81 MG PO Daily April 23, 2024 12:00am Baby Aspirin Act gloria atorvastatin 10 mg oral tablet (20 sources) HMG-CoA Reductase Inhibitor Start: 04-12-2024 End: 04-12-2025 take 1 tablet by mouth at bedtime atorvastatin (Lipitor) 10 MG tablet Indications: Dyslipidemia (CMS/HCC) Take 1 tablet (10 mg) by mouth at bedtime 100 tablet 3 04/12/2024 04/12/2025 Active Start: 07-15-2023 atorvastatin 1 0 mg Tab Refills(s) 0 Start Date: 07/15/23 Status: Ordered Atorvastatin Jesus cium Active cetirizine hydrochloride 10 mg oral tablet (3 sources) Histamine-1 Receptor Antagonist Start: 08-16-2024 take 1 tablet by mouth once daily Cetirizine (Allergy Relief (Cetirizine)) 10 mg tablet Active 10 MG PO daily August 16, 2024 12:00am citalopram 40 mg oral tablet (20 sources) Serotonin Reuptake Inhibitor Start: 03-19-2024 End: 10-24-2024 take 1 tablet by mouth in the morning citalopram (CeleXA) 40 MG tablet Indications: Major depressive disorder, recurrent episode, mild (HCC) (CMS/HCC) Take 1 tablet (40 mg) by mouth in the morning. 30 tablet 5 10/24/2024 Active Start: 07-15-2023 citalopram 40 mg Tab Refills(s) 0 Start Date: 07/15/23 Status: Ordered take 0.5 tablet by m outh every twenty-four hours CeleXA 40 MG 0.5 tablet Orally Once a day Active dexpanthenol 2 mg/ml / niacinamide 100 mg/ml / riboflavin 2 mg/ml / thiamine 100 mg/ml / vitamin b6 2 mg/ml injectable solution (1 source) vit G3-Y6-C6-B5- B6 (B-COMPLEX INJECTION) 746-6-274-2-2 mg/mL solution B-Complex 1 QD 0 Active fluticasone propionate 0.05 mg/actuat metered dose nasal spray (5 sources) Corticosteroid Start: 10-25-20 take 2 spray(s) nasal route once daily fluticasone (Flonase) 50 MCG/ACT nasal spray Indications: Chronic rhinosinusitis Administer 2 sprays into each nostril Daily Shake gently. Before first use, prime pump. After use, clean tip and replace cap. 16 g 2 10/25/2024 Active furosemide 40 mg oral tablet (17 sources) Loop Diuretic Start: 04-23-20 take 1 tablet by mouth once daily as needed, then take 1 tablet by mouth once daily as needed furosemide (Lasix) 40 MG tablet Indications: Bilateral leg edema Take 1 tablet (40 mg) by mouth Daily as needed (take 1 tablet by mouth Daily as needed) 30 tablet 3 07/06/2024 Active ibuprofen 200 mg oral tablet (4 sources) Nonsteroidal Anti-inflammatory Drug Start: 09-07-20 take 400 mg by mouth every six hours Ibuprofen Active 400 MG PO Every 6 hours September 07, 2024 12:00am Start: 09-26-2021 take 1 tablet by ambika th three times daily ibuprofen (ADVIL,MOTRIN) 800 mg tablet Take 1 tablet (800 mg total) by mouth 3 (three) times a day. 21 tablet 0 09/26/2021 Active Ibuprofen Active meclizine hydrochloride 25 mg oral tablet (18 sources) Antiemetic Start: 04-13-2024 meclizine (Ant ivert) 25 MG tablet Indications: Dizziness Take 1 tablet (25 mg) by mouth in the morning and 1 tablet (25 mg) at noon and 1 tablet (25 mg) in the evening and 1 tablet (25 mg) before bedtime. 30 tablet 3 08/09/2024 Active Start: 07-15-2023 meclizine 25 m g Tab Refills(s) 0 Start Date: 07/15/23 Status: Ordered meloxicam 7.5 mg oral tablet (13 sources) Nonsteroidal Anti-inflammatory Drug Start: 04-23-2024 End: 09-07-2024 take 7.5 mg by mouth once daily Meloxicam Active 7.5 MG PO Daily September 07, 2024 12:00am meloxicam 15 mg tablet,disintegrating 1 tablet 0 Active Meloxicam [facility] Meloxicam Active methocarbamol 750 mg oral tablet (7 sources) Muscle Relaxant Start: 09-07-2024 take 750 mg by mouth three times daily Methocarbamol Active 750 MG PO Three times daily 10 06September 07, 2024 12:00am Multivitamin preparation (7 sources) Start: 04-23-2024 take 1 tablet by mouth once daily Multivitamin Active 1 TAB PO Daily April 23, 2024 12:00am multivitamin-mineral s-lutein (MULTIVITAMIN 50 PLUS) tablet (1 source) multivitamin-min era ls-lutein (MULTIVITAMIN 50 PLUS) tablet daily. 0 Active nitroglycerin 0.4 mg sublingual tablet (14 sources) Nitrate Vasodilator Start: 08-09-2024 Nitroglycerin Active 0.4 MG SUBLINGUAL Q5M August 09, 2024 12:00am do not exceed 3 doses per episode Start: 01-11-2024 nitroglycerin (Nitrostat) 0.3 MG SL tablet Indications: Coronary arteriosclerosis (CMS/HCC) , Chest pain due to CAD (CMS/HCC) Place 1 tablet (0.3 mg) under the tongue every 5 (five) minutes if needed for chest pain 30 tablet 01/11/2024 Active PHENobarbital 32 mg oral tablet (20 sources) Start: 07-18-2024 take 2 tablets by mouth three times daily PHENobarbital (Luminal) 32.4 MG tablet Indications: Seizure disorder (CMS/HCC) TAKE 2 TABLETS BY MOUTH THREE TIMES DAILY 180 tablet 1 07/18/2024 Active Start: 04-23-2024 take 32.4 mg by mout h three times daily Phenobarbital Active 32.4 MG PO Three times daily April 23, 2024 12:00am Start: 01-23-2024 End: 09-25-2024 take 2 tablets by mouth three times daily PHENobarbital (Luminal) 32.4 MG tablet Indications: Seizure disorder (CMS/HCC) TAKE 2 TABLETS BY MOUTH THREE TIMES DAILY 180 tablet 1 09/25/2024 Active Start: 11-15-2022 take 2 tablets by mo uth three times daily PHENobarbitaL (LUMINAL) 32.4 mg tablet Indications: Seizure (CMS-HCC) take 2 tablets by mouth three times a day 180 tablet 0 11/15/2022 Active take 1 tablet by ambika every twelve hours PHENobarbital 32.4 MG 1 tablet Orally Twice a day Active phenytoin sodium 100 mg extended release oral capsule (20 sources) Anti-epileptic Agent Start: 09-07-2024 take 200 mg by mouth every eight hours Phenytoin Sodium Extended Active 200 MG PO Every 8 hours September 07, 2024 3:02pm Start: 04-23-2024 End: 09-07-2024 take 200 mg by mouth twice daily Phenytoin Sodium Exte nded Discontinued 200 MG PO Twice daily April 23, 2024 12:00am September 07, 2024 3:05pm Start: 02-15-2024 take 2 capsules by m outh in the morning, then take 2 capsules by mouth in the evening, then take 2 capsules by mouth at bedtime phenytoin ER (Dilantin) 100 MG capsule Indications: Seizure disorder (CMS/HCC) Take 2 capsules (200 mg) by mouth in the morning and 2 capsules (200 mg) in the evening and 2 capsules (200 mg) before bedtime. 540 capsule 3 02/15/2024 Active Start: 07-15-2023 phenytoin 100 mg Cap-ER Refills(s) 0 Start Date: 07/15/23 Status: Ordered Start: 08-30-2022 phenytoin (DIL ANTIN) 100 mg ER capsule take 2 capsules three times a day 360 capsule 1 08/30/2022 Active take 1 capsule by mo uth every twelve hours Phenytoin Sodium Extended 100 MG 1 capsule Orally every 12 hrs Active potassium chloride 20 meq extended release oral tablet (17 sources) Start: 06-06-2024 take 1 tablet by mouth once daily potassium chloride CR (K-Tab) 20 MEQ ER tablet Indications: Bilateral leg edema take 1 tablet by mouth once daily if needed 30 tablet 3 06/06/2024 Active Start: 04-23-2024 Potassium Chlo ride Active MEQ PO April 23, 2024 12:00am predniSONE 50 mg oral tablet (7 sources) Start: 10-25-2024 End: 10-31-2024 take 1 tablet by mouth once daily predniSONE (Deltasone) 50 MG tablet Indications: Chronic pain of right knee Take 1 tablet (50 mg) by mouth Daily for 6 days 6 tablet 10/25/2024 10/31/2024 Active Start: 08-16-2024 End: 09-07-2024 take 20 mg by mouth twice daily Prednisone Discontinued 20 MG PO Twice daily 08 25August 16, 2024 12:00am September 07, 2024 3:02pm vitamin b12 5 mg oral capsule (16 sources) Vitamin B12 Start: 04-23-2024 take 5000 ug by mouth once daily Cyanocobalamin (Vitamin B-12) Active 5000 MCG PO Daily April 23, 2024 12:00am End: 10-25-2024 take 1 tablet by mouth in the morning cyanocobalamin (Vitamin B-12) 1000 MCG tablet Take 1,000 mcg by mouth in the morning. 10/25/2024 Discontinued Vitamin B12 Acti ve Completed/Discontinued Medications Medication Drug Class(es) Dates Sig (Normalized) Sig (Original) Mens Multivitamin (2 sources) Mens Multivitami n Not-Taking Mens Multivitami n Active Problems Active Problems Problem Classification Problem Date Documented Date Episodic/Chronic Acquired foot deformities (3 sources) Foot drop, left foot; Translations: [Foot drop, left foot] Onset: 08-08-2024 Episodic Bacterial infection; unspecified site (7 sources) Rheumatic fever; Translations: [Rheumatic fever without heart involvement] 04-23-2024 Episodic Biliary tract disease (7 sources) Disorder of gallbladder; Translations: [Disease of gallbladder, unspecified] 04-23-2024 Episodic Cancer of bladder (19 sources) Malignant tumor of urinary bladder; Translations: [...] Episodic Coronary atherosclerosis and other heart disease (20 sources) Atherosclerotic heart disease of douglas coronary artery without angina pectoris; Translations: [Coronary arteriosclerosis] Onset: 07-21-2020 11-29-2023 Chronic Disorders of lipid metabolism (20 sources) Mixed hyperlipidemia; Translations: [Pure hypercholesterolemia, unspecified] Onset: 01-28-2020 07-15-2023 Chronic E Codes: Fall (2 sources) Fall on same level, unspecified, initial encounter; Translations: [Unspecified fall, initial encounter] Onset: 08-25-2022 Episodic Epilepsy; convulsions (20 sources) Other epilepsy, not intractable, without status epilepticus; Translations: [Epilepsy, unspecified, not intractable, without status epilepticus] Onset: 06-22-2022 04-23-2024 Chronic Fracture of upper limb (1 source) Displaced fracture of head of left radius, initial encounter for closed fracture; Translations: [DSPL FX HEAD LT RADIUS INIT CLOS FX] Onset: 12-27-2022 Episodic Joint disorders and dislocations; trauma-related (10 sources) Derangement of right knee; Translations: [Unspecified internal derangement of right knee] Onset: 08-16-2022 08-16-2022 Chronic Malignant neoplasm without specification of site (8 sources) Extragonadal germinoma; 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, unspecified] Onset: 01-19-1998 08-16-2022 Chronic Mood disorders (18 sources) Chronic depression; Translations: [Chronic depression] Onset: 10-26-2023 04-23-2024 Chronic Osteoarthritis (9 sources) Unspecified osteoarthritis, unspecified site; Translations: [Arthritis of right hip] Onset: 08-16-2022 08-16-2022 Chronic Other aftercare (1 source) [facility] (current) use of aspirin; Translations: [SKILLED NURSING CURRENT USE OF ASPIRIN] Onset: 12-27-2022 Episodic Other aftercare (1 source) Other nursing home (current) drug therapy; Translations: [OT SKILLED NURSING CURRENT DRUG THERAPY] Onset: 12-27-2022 Episodic Other and unspecified benign neoplasm (11 sources) History of polyp of colon; Translations: [Personal history of colonic polyps] Onset: 01-28-2020 08-16-2022 Episodic Other bone disease and musculoskeletal deformities (1 source) Other specified disorders of bone density and structure, unspecified site; Translations: [OT D/O BONE DEN STRUCT UNS SITE] Onset: 11-07-2022 Episodic Other connective tissue disease (10 sources) Dupuytren's contracture; Translations: [Palmar fascial fibromatosis [Dupuytren]] 04-23-2024 Episodic Other connective tissue disease (2 sources) Arthrodesis status; Translations: [ARTHRODESIS STATUS] Onset: 11-07-2022 Episodic Other connective tissue disease (2 sources) Repeated falls; Translations: [Repeated falls] Onset: 08-08-2024 Episodic Other ear and sense organ disorders (1 source) Sensorineural hearing loss, bilateral; Translations: [Sensorineural hearing loss, bilateral] 10-30-2024 Chronic Other ear and sense organ disorders (8 sources) Impacted cerumen, bilateral; Translations: [Impacted cerumen] Onset: 04-06-2022 Resolved: 04-06-2022 Episodic Other ear and sense organ disorders (1 source) Impacted cerumen, right ear; Translations: [IMPACTED CERUMEN RIGHT EAR] Onset: 11-07-2022 Episodic Other ear and sense organ disorders (7 sources) Impacted cerumen; Translations: [Impacted cerumen, bilateral] 04-23-2024 Episodic Other nervous system disorders (10 sources) Toxic polyneuropathy; Translations: [Polyneuropathy due to [...] Onset: 08-25-2022 Chronic Other nervous system disorders (18 sources) Neuropathy; Translations: [Drug-induced polyneuropathy] Onset: 01-28-2020 08-16-2022 Chronic Other nervous system disorders (2 sources) Other chronic pain; Translations: [Other chronic pain] Onset: 08-08-2024 Chronic Other non-traumatic joint disorders (3 sources) Pain in left hip; Translations: [PAIN IN LEFT HIP] Onset: 12-24-2022 Episodic Other non-traumatic joint disorders (6 sources) Pain in elbow; Translations: [Pain in left elbow] 05-15-2024 Episodic Other non-traumatic joint disorders (10 sources) Pain in right knee; Translations: [Right knee pain] Onset: 09-07-2024 09-07-2024 Episodic Other nutritional; endocrine; and metabolic disorders (1 source) Hypocalcemia; Translations: [HYPOCALCEMIA] Onset: 11-07-2022 Chronic Other nutritional; endocrine; and metabolic disorders (1 source) Obesity, unspecified; Translations: [OBESITY UNSPECIFIED] Onset: 10-04-2022 Chronic Other nutritional; endocrine; and metabolic disorders (18 sources) Obesity; Translations: [Obesity, unspecified] Onset: 01-12-2021 08-16-2022 Chronic Other upper respiratory disease (2 sources) Allergic rhinitis, unspecified; Translations: [Allergic rhinitis, cause unspecified] 08-16-2024 Chronic Other upper respiratory infections (7 sources) Chronic sinusitis, unspecified; Translations: [Chronic rhinitis] Onset: 10-25-2024 10-25-2024 Chronic Residual codes; unclassified (1 source) Sleep apnea, unspecified; Translations: [SLEEP APNEA UNSPECIFIED] Onset: 11-07-2022 Chronic Residual codes; unclassified (10 sources) Obstructive sleep apnea syndrome; Translations: [Obstructive sleep apnea (adult) (pediatric)] Onset: 02-21-2024 02-21-2024 Chronic Residual codes; unclassified (1 source) Acquired [...] HISTORY OF NICOTINE DEPEND] Onset: 12-27-2022 Episodic Superficial injury; contusion (2 sources) Contusion of left hip, initial encounter; Translations: [Abrasion of left elbow, initial encounter] Onset: 12-27-2022 Episodic Transient cerebral ischemia (7 sources) Transient cerebral ischemia; Translations: [Transient cerebral ischemic attack, unspecified] 04-23-2024 Chronic Unclassified (1 source) CONTACT W/AND (SUSP) EXPOS COVID-19; Translations: [CONTACT W/AND (SUSP) EXPOS COVID-19] Onset: 11-07-2022 Unclassified (1 source) OTH CRANIAL CEREBROSPINL FLUID LEAK; Translations: [OTH CRANIAL CEREBROSPINL FLUID LEAK] Onset: 11-07-2022 Unclassified (1 source) LOW BACK PAIN, UNSPECIFIED; Translations: [LOW BACK PAIN, UNSPECIFIED] Onset: 06-22-2022 Unclassified (2 sources) Chronic pain of right knee 10-25-2024 Unclassified (2 sources) Chronic rhinosinusitis 10-25-2024 Past or Other Problems Problem Classification Problem Date Documented Date Episodic/Chronic Epilepsy; convulsions (3 sources) Unspecified convulsions; Translations: [Seizure] Onset: 01-19-1975 07-15-2023 Episodic Mood disorders (10 sources) Mood disorders Onset: 11-29-2023 11-29-2023 Nonspecific chest pain (4 sources) Chest pain, unspecified; Translations: [CHEST PAIN UNSPECIFIED] Onset: 06-12-2022 Episodic Other aftercare (9 sources) Long-term current use of drug therapy; Translations: [Other long term care social worker (current) drug therapy] Onset: 11-29-2023 11-29-2023 Episodic Other aftercare (10 sources) Post-discharge follow-up; Translations: [Encounter for follow-up examination after completed treatment for conditions other than malignant neoplasm] Onset: 01-11-2024 Resolved: 02-21-2024 02-21-2024 Episodic Other aftercare (1 source) Patient encounter status; Translations: [Other nursing home (current) drug therapy] Onset: 11-29-2023 11-29-2023 Episodic Other connective tissue disease (4 sources) Pain in right foot; Translations: [PAIN IN RIGHT FOOT] Onset: 09-29-2022 Episodic Other fractures (10 sources) Closed fracture of multiple ribs; Translations: [Multiple fractures of ribs, right side, subsequent encounter for fracture with routine healing] Onset: 02-21-2024 Resolved: 05-21-2024 05-21-2024 Episodic Other injuries and conditions due to external causes (1 source) History of falling; Translations: [HISTORY OF FALLING] Onset: 06-22-2022 Episodic Other injuries and conditions due to external causes (1 source) History of fall; Translations: [History of falling] Onset: 08-16-2022 08-16-2022 Episodic Other non-traumatic joint disorders (3 sources) Pain in left knee; Translations: [PAIN IN LEFT KNEE] Onset: 08-23-2022 Episodic Other non-traumatic joint disorders (4 sources) Pain in left elbow; Translations: [Pain in joint, upper arm] Onset: 05-15-2024 05-15-2024 Episodic Other screening for suspected conditions (not mental disorders or infectious disease) (14 sources) Encounter for screening for malignant neoplasm of prostate; Translations: [Other specified abnormal findings of blood chemistry] Onset: 06-22-2022 11-29-2023 Episodic Other upper respiratory disease (10 sources) Deviated nasal septum; Translations: [Deviated nasal septum] Onset: 10-26-2023 10-26-2023 Episodic Residual codes; unclassified (10 sources) Bilateral lower limb edema; Translations: [Localized edema] Onset: 02-21-2024 02-21-2024 Episodic Spondylosis; intervertebral disc disorders; other back problems (20 sources) Degeneration of lumbar intervertebral disc; Translations: [Other intervertebral disc degeneration, lumbar region] Onset: 12-28-2021 Resolved: 05-21-2024 Chronic Spondylosis; intervertebral disc disorders; other back problems (20 sources) Pain in thoracic spine; Translations: [Lumbago with sciatica, right side] Onset: 06-22-2022 Episodic Sprains and strains (1 source) Sprain of unspecified site of left knee, initial encounter; Translations: [SPRAIN UNS SITE LT KNEE INITIAL] Onset: 08-25-2022 Episodic Syncope (15 sources) Syncope and collapse; Translations: [Syncope and collapse] Onset: 11-07-2022 Resolved: 11-29-2023 Episodic Unclassified (2 sources) Patient encounter status 10-25-2024 Results Test Name Value Interpretation Reference Range Facility XR knee RT 4V*on 10-17-2024 XR knee RT 4V* [place] [address] XRay Report Signed Patient: Nazario Cortes Jr MR#: [id number] : 1955 Acct:[id number] Age/Sex: 69 / M ADM Date: 10/17/24 Loc: [facility]DUCL[facility] Room: Type: [facility] Attending Dr: Yancy Lawson APRN Copies to: Yancy Lawson APRN Ordering Provider: Yancy Lawson APRN Date of Service: 10/17/24 XR/XR knee RT 4V*: KNEE PAIN RIGHT KNEE - 4 views CLINICAL HISTORY: Right knee pain for the past 2 weeks. History of fall last week. COMPARISON: 09/07/2024 AP, lateral and both oblique views were obtained. There is osteopenia. There is no acute fracture or dislocation. No disproportionate joint space narrowing is present. There is minor marginal spurring at the posterior patella. There is an enthesophyte at the insertion of the quadriceps tendon. No knee effusion is seen. XR/XR knee RT 4V* IMPRESSION: OSTEOPENIA AND MINIMAL DEGENERATIVE CHANGE. NO ACUTE BONY FINDINGS. Impression dictated by: Hoa Lockwood M.D.10/17/2024 2:40 PM Dictation Location: [place] [address] Transcribed By: [facility] 10/17/24 1440 Dictated By: Hoa Lockwood MD 10/17/24 1438 Signed By: 10/17/24 1440 Normal [facility] XR knee RT 4V*on 09-07-2024 XR knee RT 4V* [facility] [place] [address] [place] [address] XRay Report Signed Patient: Nazario Cortes Jr MR#: [id number] : 1955 Acct:[id number] Age/Sex: 69 / M ADM Date: 09/07/24 Loc: [facility] Room: Type: [facility] Attending Dr: Joslyn Garcia APRN Copies to: Joslyn Garcia APRN Ordering Provider: Joslyn Garcia APRN Date of Service: 09/07/24 XR/XR knee RT 4V*: RIGHT KNEE PAIN RIGHT KNEE - 3 views CLINICAL HISTORY: Right knee pain COMPARISON: None FINDINGS: Mild degenerative changes without acute bony process. No significant joint effusion. XR/XR knee RT 4V* IMPRESSION: MILD DEGENERATIVE CHANGES OF THE RIGHT KNEE WITHOUT ACUTE BONY PROCESS. Impression dictated by: Bar Ching Jr., D.OKellie09/07/2024 4:15 PM Dictation Location: [facility]15 Transcribed By: PWS 09/07/24 1615 Dictated By: Bar Ching Jr, DO 09/07/241613 Signed By: 09/07/241614 Normal [facility] Influenza virus A and B and SARS-CoV-2 (COVID-19) RNA panel - Respiratory system specon 08-16-2024 Influenza virus A and B RNA and SARS-CoV-2 (COVID-19) N gene panel ALEX+probe (Resp) Negative [facility] - Microbiology an d Antimicrobial susceptibilityon 08-16-2024 SARS-CoV-2 (COVID-19) RNA ALEX+probe Ql (Unsp spec) Negative [facility] No Panel Informationon 08-16 POC Influenza B (ALEX) Negative [facility] Follow-Upon 08-08-2024 Follow-Up [id number] Nazario Cortes 1955 M Date Provider Department Center 08/08/2024 CORNELIO NEGRON [facility] [place] Family History Problem Relation Age of Onset Supraventricular tachycardia Mother Stroke Father Kidney cancer Sister Diabetes Sister COPD Brother Family Status - Relation Status Age at Mother Father Sister Brother Level of Service:99415 MD OFFICE/OUTPATIENT ESTABLISHED MOD MDM 30 MIN Reason for Visit and Comments: Follow-up [336492] - Pt is here for a follow up visit for Lumbar Stenosis. Normal [facility] 36on 07-30-2024 36 Talked to patient. Advised that I had reviewed his MRI of the cervical spine. He does have stenosis at C2-C3. He has had a previous ACDF as well as PCDF. The only way to provide additional decompression would be with extension of his posterior fusion, which would be a large surgery. It is not clear how much this might help his symptoms. He does report he fell about a month ago, landing on his head. He was wondering if there is any evidence of a fracture. Advised I do not appreciate that on these images, though sometimes fractures are more apparent on CT imaging. Advised that I would still like to see him on 08/08 as has been 6 months since our last visit so that I can examine him again given his ongoing issues. Verbalizes understanding. Normal [facility] Telephoneon 07-30-2024 Telephone [id number] Nazario Cortes 1955 M Date Provider Department Center 07/30/2024 [facility]NELIO NEGR[facility] [place] Fl Family History Problem Relation Age of Onset Supraventricular tachycardia Mother Stroke Father Kidney cancer Sister Diabetes Sister COPD Brother Family Status - Relation Status Age at Mother Father Sister Brother Normal [facility] MR CERVICAL SPINE W AND WO C [facility] 07-26-2024 MR CERVICAL SPINE W AND WO CONTRAST MR CERVICAL SPINE W AND WO CONTRAST HISTORY: Unsteady gait, weakness, numbness in extremities Technique: Routine multiplanar multisequence MR imaging of the cervical spine was performed with and without IV contrast. COMPARISON:Spine radiograph dated 01/05/2024 FINDINGS: Anterior cervical discectomy and fusion at C5-C7. Posterior fusion at C3-5 with associated decompressive laminectomies. 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 No suspicious marrow signal changes. Vertebral body heights are preserved. Visualized posterior fossa and cervical cord signal are broadly unremarkable. No suggestion of pathologic enhancement. C2-3: Small central disc osteophyte complex, ligaments and flavum hypertrophy and facet and uncovertebral arthropathy results in moderate to severe spinal canal narrowing mild to moderate bilateral neuroforaminal narrowing. Right perineural root sleeve cyst. C3-4: No significant spinal canal narrowing. Moderate to severe right and severe left neuroforaminal narrowing. C4-5: Decompressive laminectomy without significant spinal canal narrowing. Mild to moderate bilateral neuroforaminal narrowing. C5-6: Facet arthropathy results in at least moderate bilateral neuroforaminal narrowing. No significant spinal canal narrowing. C6-7: Moderate bilateral neuroforaminal narrowing as result of facet arthropathy. No significant spinal canal narrowing. C7-T1: Bilateral facet arthropathy results in moderate bilateral neuroforaminal narrowing. No significant spinal canal narrowing. IMPRESSION: ACDF changes at C5-C7. Posterior fusion and decompressive laminectomies in the upper cervical spine. Moderate to severe spinal canal narrowing at C2-3. Significant multilevel neuroforaminal narrowing at C3-4, C5-6, C6-7 and to a lesser extent C7-T1. Electronically signed: SONI BOWMAN MD. Not Vldtd Invalid Interpretation Code [facility] XR elbow LT min 3V*on 2023 XR elbow LT min 3V* [facility] [place] [address] [place] [id number] XRay Report Signed Patient: Nazario Cortes Jr MR#: [id number] : 1955 Acct:[id number] Age/Sex: 69 / M ADM Date: 05/15/24 Loc: [facility] Room: Type: [facility] Attending Dr: Joslyn Garcia APRN Copies to: [...] Zain Fitzpatrick M.D.05/15/2024 4:23 PM Dictation Location: [place] [address] Transcribed By: [facility] 05/15/24 1623 Dictated By: Zain Fitzpatrick DO 05/15/24 1621 Signed By: 05/15/24 1623 Normal [facility] Orders Onlyon 04-11-2024 Orders Only [id number] Nazario Cortes 1955 M Date Provider Department Center 04/11/2024 [id number], [facility] Family History Problem Relation Age of Onset Supraventricular tachycardia Mother Stroke Father Kidney cancer Sister Diabetes Sister COPD Brother Family Status - Relation Status Age at Mother Father Sister Brother Normal [facility] Consulton 01-05-2024 Consult [id number] Nazario Cortes 1955 M Date Provider Department Center 01/05/2024 CORNELIO NEGRON [facility] [place] Fl Family History Problem Relation Age of Onset Supraventricular tachycardia Mother Stroke Father Kidney cancer Sister Diabetes Sister COPD Brother Family Status - Relation Status Age at Mother Father Sister Brother Level of Service:89875 MD OFFICE/OUTPATIENT NEW MODERATE MDM 45 MINUTES Reason [...] little relief about 6-7 years ago. Normal [facility] US CAROTID ART BILon 023 US [...] by: KELL BLANDON Date: 2023-01-11 08:42 Normal [facility] ECHOCARDIO M/2D COMPLETEon 0 01-07-2023 ECHOCARDIO M/2D COMPLETE Patient: NAZARIO CORTES Exam Date: 01/07/2023 : 1955 Gender:M Ordering : DR JIGNESH GONSALEZ . Admission #: [id number] Family : Order #: [id number] CLICK HERE TO VIEW EXAM ECHOCARDIOGRAM REPORT [...] Smith M.D. on 01/11/2023 at 18:23 Normal [facility] XR ELBOW LT MIN 3 VIEWSon [...] radial head fracture. Electronically authenticated by: VIDAL Lyons: 2022-12-24 20:23 Normal [facility] XR HIP LT 2 3V [...] fracture or malalignment. Electronically authenticated by: VIDAL NAVYAKRYSTAL Date: 2022-12-24 20:21 Normal [facility] XR HUMERUS LT MIN 2Von 12-24 XR HUMERUS LT MIN 2V XR HUMERUS LT MIN 2V: HISTORY: Bone injury. COMPARISON: Left humerus 06/21/2021. [...] KELL DELANEY Date: 2022-12-24 21:03 Normal [facility] CBC AUTO DIFFon 11-04-2022 BASO # 0.1 103/ul Normal 0.0-0.1 [facility] Comment on above: Performed By: #### B MP, CMREP, LIPID #### [facility] [address] [place] [address] Dr. Jeimy Tenorio Basophils/100 WBC (Bld) 0.9 % Normal 0.2-2.0 [facility] Comment on above: Performed By: #### B MP, CMREP, LIPID #### [facility] [address] [place] [address] [address] Jeimy Tenorio EO # 0.3 103/ul Normal 0.0-0.7 [facility] Comment on above: Performed By: #### B MP, CMREP, LIPID #### [facility] [address] [place] [address] [address] Jeimy Tenorio Eosinophils/100 WBC (Bld) 5.2 % Normal 0.9-7.0 [facility] Comment on above: Performed By: #### B MP, CMREP, LIPID #### [facility] [address] [place] [address] Dr. Jeimy Tenorio Erythrocyte distribution width (RBC) [Ratio] 12.9 % Normal 11.0-15.0 [facility] Comment on above: Performed By: #### B MP, CMREP, LIPID #### [facility] [address] [place] [address] Dr. Jeimy Tenorio Hematocrit (Bld) [Volume fraction] 39.5 % Critically low 42.0-54.0 [facility] Comment on above: Performed By: #### B MP, CMREP, LIPID #### [facility] [address] [place] [address] Dr. Jeimy Tenorio Hemoglobin (Bld) [Mass/Vol] 13.1 g/dL Critically low 14.0-18.0 [facility] Comment on above: Performed By: #### B MP, CMREP, LIPID #### [facility] [address] [place] [address] Dr. Jeimy Tenorio IG # 0.03 10e3/ul Normal 0.00-0.03 [facility] Comment on above: Performed By: #### B MP, CMREP, LIPID #### [facility] [address] [place] [address] Dr. Jeimy Tenorio IG % 0.5 % Normal 0.0-0.5 [facility] Comment on above: Performed By: #### B MP, CMREP, LIPID #### [facility] [address] [place] [address] Dr. Jeimy Tenorio LYMPH # 1.5 103/ul Normal 1.2-3.8 [facility] Comment on above: Performed By: #### B MP, CMREP, LIPID #### [facility] [address] [place] [address] Dr. Jeimy Tenorio Lymphocytes/100 WBC (Bld) 22.6 % Normal 20.5-60.0 [facility] Comment on above: Performed By: #### B MP, CMREP, LIPID #### [facility] [address] [place] [address] Dr. Jeimy Tenorio MANUAL DIFF REQ NO Normal [facility] Comment on above: Performed By: #### B MP, CMREP, LIPID #### [facility] [address] [place] [address] Dr. Jeimy Tenorio MCH (RBC) [Entitic mass] 32.8 pg Normal 25.9-34.0 [facility] Comment on above: Performed By: #### B MP, CMREP, LIPID #### [facility] [address] [place] [address] Dr. Jeimy Tenorio MCHC (RBC) [Mass/Vol] 33.2 g/dL Normal 29.9-35.2 [facility] Comment on above: Performed By: #### B MP, CMREP, LIPID #### [facility] [address] [place] [address] Dr. Jeimy Tenorio MCV (RBC) [Entitic vol] 99.0 fL Critically high 80.0-94.0 [facility] Comment on above: Performed By: #### B MP, CMREP, LIPID #### [facility] [address] [place] [address] Dr. Jeimy Tenorio MONO # 0.7 103/ul Normal 0.3-0.8 [facility] Comment on above: Performed By: #### B MP, CMREP, LIPID #### [facility] [address] [place] [address] Dr. Jeimy Tenorio Monocytes/100 WBC (Bld) 10.6 % Normal 1.7-12.0 [facility] Comment on above: Performed By: #### B MP, CMREP, LIPID #### [facility] [address] [place] [address] Dr. Jeimy Tenorio NEUT # 4.0 103/ul Normal 1.4-6.5 [facility] Comment on above: Performed By: #### B MP, CMREP, LIPID #### [facility] [address] [place] [address] Dr. Jeimy Tenorio Neutrophils/100 WBC (Bld) 60.2 % Normal 43.0-75.0 [facility] Comment on above: Performed By: #### B MP, CMREP, LIPID #### [facility] [address] [place] [address] [address] Jeimy Tenorio Platelet mean volume (Bld) [Entitic vol] 9.7 fL Normal 9.5-13.5 [facility] Comment on above: Performed By: #### B MP, CMREP, LIPID #### [facility] [address] [place] [address] [address] Jeimy Tenorio PLT 176 103/ul Normal 150-450 [facility] Comment on above: Performed By: #### B MP, CMREP, LIPID #### [facility] [address] [place] [address] [address] Jeimy Tenorio RBC 3.99 106/ul Critically low 4.70-6.10 [facility] Comment on above: Performed By: #### B MP, CMREP, LIPID #### [facility] [address] [place] [address] Dr. Jeimy Tenorio WBC 6.6 103/ul Normal 4.0-11.0 [facility] Comment on above: Performed By: #### B MP, CMREP, LIPID #### [facility] [address] [place] [address] HEAD WO CONon [...] ALEJANDRO PINEDA Date: 2022-11-04 14:08 Normal [facility] Covid-19 PCR (CVDTB)on 10-21 SARS-CoV-2 (COVID-19) RNA ALEX+probe Ql (Unsp spec) Not detected Normal NOT DETECTED [facility] Comment on above: Result Comment: This test is not yet approved or cleared by the [place] FDA. When there are no FDA-approved or cleared tests available, and other criteria are met, FDA can make tests available under an emergency access mechanism called an Emergency Use Authorization (EUA). The EUA for this test is supported by the Director Targeted Marketing of Health and Human Service's (HHS's) declaration [...] By: #### B MP, CMREP, LIPID #### [facility] [address] [place] [address] Dr. Jeimy Tenorio INFLUENZA A AND B AGon 11-04 INFLUANE SEE BELOW Normal [facility] Comment on above: Result Comment: Nega tive for Flu A protein angiten. Infection due to Flu A cannot be ruled out. Flu A angiten in the sample may be below the detection limit of the test. Performed By: #### I NFLUAB #### [facility] [address] [place] [address] [address] Jeimy Tenorio INFLUBNEG SEE BELOW Normal [facility] Comment on above: Result Comment: Nega tive for Flu B protein antigen. Infection due to Flu B cannot be ruled out. Flu B antigen in the sample may be below the detection limit of the test. Performed By: #### I NFLUAB #### [facility] [address] [place] [address] Dr. Jeimy Tenorio INFLUENZA A AG Negative Normal NEGATIVE SEE COMMENT [facility] Comment on above: Performed By: #### I NFLUAB #### [facility] [address] [place] [address] Dr. Jeimy Tenorio INFLUENZA B AG Negative Normal NEGATIVE SEE COMMENT [facility] Comment on above: Performed By: #### I NFLUAB #### [facility] [address] [place] [address] Dr. Jeimy Tenorio INTERNAL CONTROLS Within Normal Limits Normal Wi thin Normal Limits [facility] Comment on above: Performed By: #### I NFLUAB #### [facility] [address] [place] [address] Dr. Jeimy Tenorio PROF CHEM 8 (BAS METB)on Anion gap [Moles/Vol] 9.7 mmol/L Normal [facility] Comment on above: Performed By: #### C BC #### [facility] [address] [place] [address] Dr. Jeimy Tenorio Calcium [Mass/Vol] 8.0 mg/dL Critically low 8.5-10.1 [facility] Comment on above: Performed By: #### C BC #### [facility] [address] [place] [address] Dr. Jeimy Tenorio Chloride [Moles/Vol] 104 mmol/L Normal 98-107 [facility] Comment on above: Performed By: #### C BC #### [facility] [address] [place] [address] Dr. Jeimy Tenorio CO2 [Moles/Vol] 31.1 mmol/L Normal 21.0-32.0 [facility] Comment on above: Performed By: #### C BC #### [facility] [address] [place] [address] Dr. Jeimy Tenorio Creatinine [Mass/Vol] 0.75 mg/dL Normal 0.70-1.30 [facility] Comment on above: Performed By: #### C BC #### [facility] [address] [place] [address] [address] Jeimy Tenorio EGFR-AF DANISH >60 Normal >=60 [facility] Comment on above: Performed By: #### C BC #### [facility] [address] [place] [address] [address] Jeimy Tenorio EGFR-NON AF DANISH >60 Normal >=60 [facility] Comment on above: Performed By: #### C BC #### [facility] [address] [place] [address] [address] Jeimy Tenorio Glucose [Mass/Vol] 76 mg/dL Normal 74-106 [facility] Comment on above: Performed By: #### C BC #### [facility] [address] [place] [address] Dr. Jeimy Tenorio Potassium [Moles/Vol] 3.8 mmol/L Normal 3.5-5.1 [facility] Comment on above: Performed By: #### C BC #### [facility] [address] [place] [address] [address] Jeimy Tenorio Sodium [Moles/Vol] 141 mmol/L Normal 136-145 [facility] Comment on above: Performed By: #### C BC #### [facility] [address] [place] [address] [address] Jeimy Tenorio Urea nitrogen [Mass/Vol] 12.0 mg/dL Normal 7.0-18.0 [facility] Comment on above: Performed By: #### C BC #### [facility] [address] [place] [address] [address] Jeimy Tenorio Urea nitrogen/Creatinine [Mass ratio] 16.0 mg/mg Normal [facility] Comment on above: Performed By: #### C BC #### [facility] [address] [place] [address] [address] Jeimy Tenorio TROPONIN, HIGH SENSITIVITYon 11-04-2022 HSTROP 5.8 pg/mL Normal 4.0-76.1 [facility] Comment on above: Result Comment: CUT- OFF POINTS HAVE BEEN ESTABLISHED BASED ON THE FOURTH UNIVERSAL DEFINITIONS OF MYOCARDIAL INFARCTION. THE UPPER REFERENCE LIMIT (URL) OF TROPONIN, DEFINED THE 99TH PERCENTILE OF cTnI DISTRIBUTION IN A REFERENCE POPULATION, HAS BEEN CONFIRMED THE DECISION THRESHOLD FOR CA DIAGNOSIS. Performed By: #### C BC #### [facility] [address] [place] [address] Dr. Jeimy Tenorio CBC AUTO DIFFon 09-29-2022 BASO # 0.1 103/ul Normal 0.0-0.1 [facility] Comment on above: Performed By: #### B MP, CMREP, LIPID #### [facility] [address] [place] [address] Dr. Jeimy Tenorio Basophils/100 WBC (Bld) 1.2 % Normal 0.2-2.0 [facility] Comment on above: Performed By: #### B MP, CMREP, LIPID #### [facility] [address] [place] [address] Dr. Jeimy Tenorio EO # 0.3 103/ul Normal 0.0-0.7 [facility] Comment on above: Performed By: #### B MP, CMREP, LIPID #### [facility] [address] [place] [address] Dr. Jeimy Tenorio Eosinophils/100 WBC (Bld) 4.9 % Normal 0.9-7.0 [facility] Comment on above: Performed By: #### B MP, CMREP, LIPID #### [facility] [address] [place] [address] Dr. Jeimy Tenorio Erythrocyte distribution width (RBC) [Ratio] 13.2 % Normal 11.0-15.0 [facility] Comment on above: Performed By: #### B MP, CMREP, LIPID #### [facility] [address] [place] [address] Dr. Jeimy Tenorio Hematocrit (Bld) [Volume fraction] 42.3 % Normal 42.0-54.0 [facility] Comment on above: Performed By: #### B MP, CMREP, LIPID #### [facility] [address] [place] [address] Dr. Jeimy Tenorio Hemoglobin (Bld) [Mass/Vol] 13.8 g/dL Critically low 14.0-18.0 [facility] Comment on above: Performed By: #### B MP, CMREP, LIPID #### [facility] [address] [place] [address] [address] Jeimy Tenorio IG # 0.02 10e3/ul Normal 0.00-0.03 [facility] Comment on above: Performed By: #### B MP, CMREP, LIPID #### [facility] [address] [place] [address] [address] Jeimy Tenorio IG % 0.3 % Normal 0.0-0.5 [facility] Comment on above: Performed By: #### B MP, CMREP, LIPID #### [facility] [address] [place] [address] [address] Jeimy Tenorio LYMPH # 1.3 103/ul Normal 1.2-3.8 [facility] Comment on above: Performed By: #### B MP, CMREP, LIPID #### [facility] [address] [place] [address] [address] Jeimy Tenorio Lymphocytes/100 WBC (Bld) 19.5 % Critically low 20.5-60.0 [facility] Comment on above: Performed By: #### B MP, CMREP, LIPID #### [facility] [address] [place] [address] Dr. Jeimy Tenorio MANUAL DIFF REQ NO Normal [facility] Comment on above: Performed By: #### B MP, CMREP, LIPID #### [facility] [address] [place] [address] [address] Jeimy Tenorio MCH (RBC) [Entitic mass] 32.9 pg Normal 25.9-34.0 [facility] Comment on above: Performed By: #### B MP, CMREP, LIPID #### [facility] [address] [address] [address] Jeimy Tenorio MCHC (RBC) [Mass/Vol] 32.6 g/dL Normal 29.9-35.2 [facility] Comment on above: Performed By: #### B MP, CMREP, LIPID #### [facility] [address] [place] [address] Dr. Jeimy Tenorio MCV (RBC) [Entitic vol] 100.7 fL Critically high 80.0-94.0 [facility] Comment on above: Performed By: #### B MP, CMREP, LIPID #### [facility] [address] [place] [address] Dr. Jeimy Tenorio MONO # 0.7 103/ul Normal 0.3-0.8 [facility] Comment on above: Performed By: #### B MP, CMREP, LIPID #### [facility] [address] [place] [address] Dr. Jeimy Tenorio Monocytes/100 WBC (Bld) 9.9 % Normal 1.7-12.0 [facility] Comment on above: Performed By: #### B MP, CMREP, LIPID #### [facility] [address] [place] [address] Dr. Jeimy Tenorio NEUT # 4.3 103/ul Normal 1.4-6.5 [facility] Comment on above: Performed By: #### B MP, CMREP, LIPID #### [facility] [address] [place] [address] Dr. Jeimy Tenorio Neutrophils/100 WBC (Bld) 64.2 % Normal 43.0-75.0 [facility] Comment on above: Performed By: #### B MP, CMREP, LIPID #### [facility] [address] [place] [address] Dr. Jeimy Tenorio Platelet mean volume (Bld) [Entitic vol] 10.4 fL Normal 9.5-13.5 [facility] Comment on above: Performed By: #### B MP, CMREP, LIPID #### [facility] [address] [place] [address] Dr. Jeimy Tenorio PLT 209 103/ul Normal 150-450 [facility] Comment on above: Performed By: #### B MP, CMREP, LIPID #### [facility] [address] [place] [address] Dr. Jeimy Tenorio RBC 4.20 106/ul Critically low 4.70-6.10 [facility] Comment on above: Performed By: #### B MP, CMREP, LIPID #### [facility] [address] [address] [address] Jeimy Tenorio WBC 6.7 103/ul Normal 4.0-11.0 [facility] Comment on above: Performed By: #### B MP, CMREP, LIPID #### [facility] [address] [address] [address] Jeimy Tenorio DILANTINon 09-29-2022 Phenytoin [Mass/Vol] 23.7 ug/mL Critically high 10.0-20.0 [facility] Comment on above: Performed By: #### C BC #### [facility] [address] [place] [address] Dr. Jeimy Tenorio GLYCOHEMOGLOBIN A1Con 2021 ADA RECOMMENDATION SEE BELOW Normal [facility] Comment on above: Result Comment: ADA RECOMMENDED LIMIT 4.0 - 6.0 ADA THERAPEUTIC TARGET < 7.0 ACTION SUGGESTED > 7.0 Performed By: #### A 1C #### [facility] [address] [address] [address] Jeimy Tenorio Glucose [Mass/Vol] 105 mg/dL Normal [facility] Comment on above: Performed By: #### A 1C #### [facility] [address] [place] [address] Dr. Jeimy Tenorio HbA1c (Bld) [Mass fraction] 5.3 % Normal 4.5-6.2 [facility] Comment on above: Performed By: #### A 1C #### [facility] [address] [place] [address] Dr. Jeimy Tenorio LIPID PROFILEon 09-29-2022 CHOL-HDL RATIO NORM SEE BELOW Normal [facility] Comment on above: Result Comment: 3.3 - 4.4 LOW RISK 4.4 - 7.1 AVERAGE RISK 7.1 - 11.0 MODERATE RISK >11.0 HIGH RISK Performed By: #### B MP, CMREP, LIPID #### [facility] [address] [address] [address] Jeimy Tenorio Cholesterol [Mass/Vol] 178 mg/dL Normal <=200 [facility] Comment on above: Performed By: #### B MP, CMREP, LIPID #### [facility] [address] [address] [address] Jeimy Tenorio Cholesterol in HDL [Mass/Vol] 56 mg/dL Normal 40-60 [facility] Comment on above: Performed By: #### B MP, CMREP, LIPID #### [facility] [address] [place] [address] Dr. Jeimy Tenorio Cholesterol in LDL [Mass/Vol] 86.8 mg/dL Normal [facility] Comment on above: Performed By: #### B MP, CMREP, LIPID #### [facility] [address] [place] [address] Dr. Jeimy Tenorio Cholesterol.total/Ch olesterol in HDL [Mass ratio] 3.2 {ratio} Normal [facility] Comment on above: Performed By: #### B MP, CMREP, LIPID #### [facility] [address] [place] [address] Dr. Jeimy Tenorio HDL NORMAL > or = 60 mg/dl - LOW CARDIOVASCULAR RISK <40 mg/dl - HIGH CARDIOVASCULAR RISK Normal [facility] Comment on above: Performed By: #### B MP, CMREP, LIPID #### [facility] [address] [place] [address] Dr. Jeimy Tenorio LDL CALC NORMAL SEE BELOW Normal [facility] Comment on above: Result Comment: <100 mg/dl OPTIMAL 100 - 129 mg/dl NEAR OR ABOVE OPTIMAL 130 - 159 mg/dl BORDERLINE HIGH 160 - 189 mg/dl HIGH >190 mg/dl VERY HIGH Performed By: #### B MP, CMREP, LIPID #### [facility] [address] [place] [address] Dr. Jeimy Tenorio Triglyceride [Mass/Vol] 176 mg/dL Critically high <=150 [facility] Comment on above: Performed By: #### B MP, CMREP, LIPID #### [facility] [address] [place] [address] Dr. Jeimy Tenorio VLDL CALC 35.2 mg/dL Normal [facility] Comment on above: Performed By: #### B MP, CMREP, LIPID #### [facility] [address] [address] [address] Jeimy Tenorio LIVER PROFILEon 09-29-2022 Albumin [Mass/Vol] 3.5 g/dL Normal 3.4-5.0 [facility] Comment on above: Performed By: #### B MP, CMREP, LIPID #### [facility] [address] [address] [address] Jeimy Tenorio Albumin/Globulin [Mass ratio] 0.8 {ratio} Normal [facility] Comment on above: Performed By: #### B MP, CMREP, LIPID #### [facility] [address] [place] [address] Dr. Jeimy Tenorio ALP [Catalytic activity/Vol] 139 U/L Critically high 46-116 [facility] Comment on above: Performed By: #### B MP, CMREP, LIPID #### [facility] [address] [place] [address] Dr. Jeimy Tenorio ALT [Catalytic activity/Vol] 25 U/L Normal 16-63 [facility] Comment on above: Performed By: #### B MP, CMREP, LIPID #### [facility] [address] [place] [address] Dr. Jeimy Tenorio AST [Catalytic activity/Vol] 23 U/L Normal 15-37 [facility] Comment on above: Performed By: #### B MP, CMREP, LIPID #### [facility] [address] [place] [address] Dr. Jeimy Tenorio BILI, CONJUGATED 0.0 mg/dL Normal 0.0-0.2 [facility] Comment on above: Performed By: #### B MP, CMREP, LIPID #### [facility] [address] [place] [address] Dr. Jeimy Tenorio Bilirubin [Mass/Vol] 0.3 mg/dL Normal 0.2-1.0 [facility] Comment on above: Performed By: #### B MP, CMREP, LIPID #### [facility] [address] [place] [address] Dr. Jeimy Tenorio Globulin (S) [Mass/Vol] 4.3 g/dL Normal [facility] Comment on above: Performed By: #### B MP, CMREP, LIPID #### [facility] [address] [place] [address] Dr. Jeimy Tenorio Protein [Mass/Vol] 7.8 g/dL Normal 6.4-8.2 [facility] Comment on above: Performed By: #### B MP, CMREP, LIPID #### [facility] [address] [place] [address] Dr. Jeimy Tenorio PROF CHEM 8 (BAS METB)on Anion gap [Moles/Vol] 8.7 mmol/L Normal [facility] Comment on above: Performed By: #### B MP, CMREP, LIPID #### [facility] [address] [place] [address] Dr. Jeimy Tenorio Calcium [Mass/Vol] 8.7 mg/dL Normal 8.5-10.1 [facility] Comment on above: Performed By: #### B MP, CMREP, LIPID #### [facility] [address] [place] [address] Dr. Jeimy Tenorio Chloride [Moles/Vol] 104 mmol/L Normal 98-107 [facility] Comment on above: Performed By: #### B MP, CMREP, LIPID #### [facility] [address] [place] [address] Dr. Jeimy Tenorio CO2 [Moles/Vol] 29.8 mmol/L Normal 21.0-32.0 [facility] Comment on above: Performed By: #### B MP, CMREP, LIPID #### [facility] [address] [place] [address] Dr. Jeimy Tenorio Creatinine [Mass/Vol] 0.76 mg/dL Normal 0.70-1.30 [facility] Comment on above: Performed By: #### B MP, CMREP, LIPID #### [facility] [address] [place] [address] Dr. Jeimy Tenorio EGFR-AF DANISH >60 Normal >=60 [facility] Comment on above: Performed By: #### B MP, CMREP, LIPID #### [facility] [address] [place] [address] Dr. Jeimy Tenorio EGFR-NON AF DANISH >60 Normal >=60 [facility] Comment on above: Performed By: #### B MP, CMREP, LIPID #### [facility] [address] [place] [address] Dr. Jeimy Tenorio Glucose [Mass/Vol] 95 mg/dL Normal 74-106 [facility] Comment on above: Performed By: #### B MP, CMREP, LIPID #### [facility] [address] [place] [address] Dr. Jeimy Tenorio Potassium [Moles/Vol] 4.5 mmol/L Normal 3.5-5.1 [facility] Comment on above: Performed By: #### B MP, CMREP, LIPID #### [facility] [address] [place] [address] Dr. Jeimy Tenorio Sodium [Moles/Vol] 138 mmol/L Normal 136-145 [facility] Comment on above: Performed By: #### B MP, CMREP, LIPID #### [facility] [address] [place] [address] Dr. Jeimy Tenorio Urea nitrogen [Mass/Vol] 18.0 mg/dL Normal 7.0-18.0 [facility] Comment on above: Performed By: #### B MP, CMREP, LIPID #### [facility] [address] [place] [address] Dr. Jeimy Tenorio Urea nitrogen/Creatinine [Mass ratio] 23.7 mg/mg Normal [facility] Comment on above: Performed By: #### B MP, CMREP, LIPID #### [facility] [address] [place] [address] Dr. Jeimy Tenorio TSHon 09-29-2022 TSH 1.694 uIU/mL Normal 0.358-3.740 [facility] Comment on above: Performed By: #### B MP, CMREP, LIPID #### [facility] [address] [address] [address] Jeimy Tenorio CARDIAC SAWYER 3-6on 2 CK [Catalytic activity/Vol] 47 U/L Normal 39-308 [facility] Comment on above: Performed By: #### B MP, CMREP, LIPID #### [facility] [address] [address] [address] Jeimy Tenorio CK.MB [Mass/Vol] 0.77 ng/mL Normal <=3.60 [facility] Comment on above: Performed By: #### B MP, CMREP, LIPID #### [facility] [address] [address] [address] Jeimy Tenorio HSTROP 6.9 pg/mL Normal 4.0-76.1 [facility] Comment on above: Result Comment: CUT- OFF POINTS HAVE BEEN ESTABLISHED BASED ON THE FOURTH UNIVERSAL DEFINITIONS OF MYOCARDIAL INFARCTION. THE UPPER REFERENCE LIMIT (URL) OF TROPONIN, DEFINED THE 99TH PERCENTILE OF cTnI DISTRIBUTION IN A REFERENCE POPULATION, HAS BEEN CONFIRMED THE DECISION THRESHOLD FOR CA DIAGNOSIS. Performed By: #### B MP, CMREP, LIPID #### [facility] [address] [address] [address] Jeimy Tenorio CK [Catalytic activity/Vol] 53 U/L Normal 39-308 [facility] Comment on above: Performed By: #### C BC #### [facility] [address] [address] [address] Jeimy Tenorio CK.MB [Mass/Vol] 0.80 ng/mL Normal <=3.60 [facility] Comment on above: Performed By: #### C BC #### [facility] [address] [address] [address] Jeimy Tenorio HSTROP 6.2 pg/mL Normal 4.0-76.1 [facility] Comment on above: Result Comment: CUT- OFF POINTS HAVE BEEN ESTABLISHED BASED ON THE FOURTH UNIVERSAL DEFINITIONS OF MYOCARDIAL INFARCTION. THE UPPER REFERENCE LIMIT (URL) OF TROPONIN, DEFINED THE 99TH PERCENTILE OF cTnI DISTRIBUTION IN A REFERENCE POPULATION, HAS BEEN CONFIRMED THE DECISION THRESHOLD FOR CA DIAGNOSIS. Performed By: #### C BC #### [facility] [address] [place] [address] Dr. Jeimy Tenorio CBC AUTO DIFFon 06-12-2022 BASO # 0.1 103/ul Normal 0.0-0.1 [facility] Comment on above: Performed By: #### C BC #### [facility] [address] [place] [address] Dr. Jeimy Tenorio Basophils/100 WBC (Bld) 0.9 % Normal 0.2-2.0 [facility] Comment on above: Performed By: #### C BC #### [facility] [address] [place] [address] Dr. Jeimy Tenorio EO # 0.3 103/ul Normal 0.0-0.7 [facility] Comment on above: Performed By: #### C BC #### [facility] [address] [place] [address] Dr. Jeimy Tenorio Eosinophils/100 WBC (Bld) 5.2 % Normal 0.9-7.0 [facility] Comment on above: Performed By: #### C BC #### [facility] [address] [place] [address] Dr. Jeimy Tenorio Erythrocyte distribution width (RBC) [Ratio] 13.0 % Normal 11.0-15.0 [facility] Comment on above: Performed By: #### C BC #### [facility] [address] [place] [address] Dr. Jeimy Tenorio Hematocrit (Bld) [Volume fraction] 39.1 % Critically low 42.0-54.0 [facility] Comment on above: Performed By: #### C BC #### [facility] [address] [place] [address] Dr. Jeimy Tenorio Hemoglobin (Bld) [Mass/Vol] 13.2 g/dL Critically low 14.0-18.0 [facility] Comment on above: Performed By: #### C BC #### [facility] [address] [place] [address] Dr. Jeimy Tenorio IG # 0.03 10e3/ul Normal 0.00-0.03 [facility] Comment on above: Performed By: #### C BC #### [facility] [address] [place] [address] Dr. Jeimy Tenorio IG % 0.5 % Normal 0.0-0.5 [facility] Comment on above: Performed By: #### C BC #### [facility] [address] [place] [address] Dr. Jeimy Tenorio LYMPH # 1.7 103/ul Normal 1.2-3.8 [facility] Comment on above: Performed By: #### C BC #### [facility] [address] [place] [address] Dr. Jeimy Tenorio Lymphocytes/100 WBC (Bld) 26.0 % Normal 20.5-60.0 [facility] Comment on above: Performed By: #### C BC #### [facility] [address] [place] [address] Dr. Jeimy Tenorio MANUAL DIFF REQ NO Normal [facility] Comment on above: Performed By: #### C BC #### [facility] [address] [place] [address] Dr. Jeimy Tenorio MCH (RBC) [Entitic mass] 33.2 pg Normal 25.9-34.0 [facility] Comment on above: Performed By: #### C BC #### [facility] [address] [place] [address] Dr. Jeimy Tenorio MCHC (RBC) [Mass/Vol] 33.8 g/dL Normal 29.9-35.2 [facility] Comment on above: Performed By: #### C BC #### [facility] [address] [place] [address] Dr. Jemiy Tenorio MCV (RBC) [Entitic vol] 98.5 fL Critically high 80.0-94.0 [facility] Comment on above: Performed By: #### C BC #### [facility] [address] [place] [address] Dr. Jeimy Tenorio MONO # 0.8 103/ul Normal 0.3-0.8 [facility] Comment on above: Performed By: #### C BC #### [facility] [address] [id number] Jeimy Tenorio Monocytes/100 WBC (Bld) 12.2 % Critically high 1.7-12.0 [facility] Comment on above: Performed By: #### C BC #### [facility] [address] [address] [address] Jeimy Tenorio NEUT # 3.6 103/ul Normal 1.4-6.5 [facility] Comment on above: Performed By: #### C BC #### [facility] [address] [address] [address] Jeimy Tenorio Neutrophils/100 WBC (Bld) 55.2 % Normal 43.0-75.0 [facility] Comment on above: Performed By: #### C BC #### [facility] [address] [place] [address] Dr. Jeimy Tenorio Platelet mean volume (Bld) [Entitic vol] 9.9 fL Normal 9.5-13.5 [facility] Comment on above: Performed By: #### C BC #### [facility] [address] [address] [address] Jeimy Tenorio PLT 174 103/ul Normal 150-450 [facility] Comment on above: Performed By: #### C BC #### [facility] [address] [address] [address] Jeimy Tenorio RBC 3.97 106/ul Critically low 4.70-6.10 [facility] Comment on above: Performed By: #### C BC #### [facility] [address] [place] [address] Dr. Jeimy Tenorio WBC 6.5 103/ul Normal 4.0-11.0 [facility] Comment on above: Performed By: #### C BC #### [facility] [address] [place], [place] [id number] Dr. Jeimy Tenorio CTA CHEST WO W CONon 23-2 022 CTA CHEST WO W CON EXAM: [...] MAMIE ALFORD Date: 2022-06-12 00:21 Normal [facility] SARS-CoV-2 (COVID-19) RNA ALEX+probe Ql (Unsp spec) Not detected Normal NOT DETECTED [facility] Comment on above: Result Comment: When [...] this test is supported by the Director Targeted Marketing of Health and Human Service's declaration that [...] By: #### B MP, CMREP, LIPID #### [facility] [address] [place] [address] Dr. Jeimy Tenorio ER URINE PROFILEon 2 Bilirubin Ql (U) Negative Normal NEGATIVE [facility] Comment on above: Performed By: #### E RUR #### [facility] [address] [place] [address] Dr. Jeimy Tenorio Clarity (U) CLEAR Normal CLEAR [facility] Comment on above: Performed By: #### E RUR #### [facility] [address] [place] [address] Dr. Jeimy Tenorio Color (U) LT. YELLOW Normal YELLOW [facility] Comment on above: Performed By: #### E RUR #### [facility] [address] [place] [address] Dr. Jeimy Tenorio ERUAHD A micrscopic examination will be performed if indicated. Normal [facility] Comment on above: Performed By: #### E RUR #### [facility] [address] [place] [address] Dr. Jeimy Tenorio Glucose Ql (U) Negative Normal NEGATIVE [facility] Comment on above: Performed By: #### E RUR #### [facility] [address] [place] [address] Dr. Jeimy Tenorio Hemoglobin Ql (U) Negative Normal NEGATIVE [facility] Comment on above: Performed By: #### E RUR #### [facility] [address] [place] [address] Dr. Jeimy Tenorio Ketones Ql (U) TRACE Abnormal NEGATIVE [facility] Comment on above: Performed By: #### E RUR #### [facility] [address] [place] [address] Dr. Jeimy Tenorio LEUKOCYTES Negative Normal NEGATIVE [facility] Comment on above: Performed By: #### E RUR #### [facility] [address] [place] [address] Dr. Jeimy Tenorio Nitrite Ql (U) Negative Normal NEGATIVE [facility] Comment on above: Performed By: #### E RUR #### [facility] [address] [place] [address] Dr. Jeimy Tenorio pH (U) 5.5 [pH] Normal 5-9 [facility] Comment on above: Performed By: #### E RUR #### [facility] [address] [place] [address] Dr. Jeimy Tenorio SPEC GRAVITY 1.010 Normal 1.005-<=1.025 [facility] Comment on above: Performed By: #### E RUR #### [facility] [address] [place] [address] Dr. Jeimy Tenorio UA PROTEIN Negative Normal NEGATIVE/ TRACE [facility] Comment on above: Performed By: #### E RUR #### [facility] [address] [place] [address] Dr. Jeimy Tenorio UR MICRO IND NOT INDICATED Normal [facility] Comment on above: Performed By: #### E RUR #### [facility] [address] [place] [address] Dr. Jeimy Tenorio Urobilinogen Qn (U) 0.2 {Raphael'U}/dL Normal 0.2 - 1. 0 [facility] Comment on above: Performed By: #### E RUR #### [facility] [address] [place] [address] Dr. Jeimy Tenorio GLYCOHEMOGLOBIN A1Con 2021 ADA RECOMMENDATION SEE BELOW Normal [facility] Comment on above: Result Comment: ADA RECOMMENDED LIMIT 4.0 - 6.0 ADA THERAPEUTIC TARGET < 7.0 ACTION SUGGESTED > 7.0 Performed By: #### C BC #### [facility] [address] [place] [address] Dr. Jeimy Tenorio Glucose [Mass/Vol] 103 mg/dL Normal [facility] Comment on above: Performed By: #### C BC #### [facility] [address] [place] [address] Dr. Jeimy Tenorio HbA1c (Bld) [Mass fraction] 5.2 % Normal 4.5-6.2 [facility] Comment on above: Performed By: #### C BC #### [facility] [address] [place] [address] Dr. Jeimy Tenorio LIPID PROFILEon 06-12-2022 CHOL-HDL RATIO NORM SEE BELOW Normal [facility] Comment on above: Result Comment: 3.3 - 4.4 LOW RISK 4.4 - 7.1 AVERAGE RISK 7.1 - 11.0 MODERATE RISK >11.0 HIGH RISK Performed By: #### B MP, CMREP, LIPID #### [facility] [address] [place] [address] Dr. Jeimy Tenorio Cholesterol [Mass/Vol] 142 mg/dL Normal <=200 [facility] Comment on above: Performed By: #### B MP, CMREP, LIPID #### [facility] [address] [place] [address] Dr. Jeimy Tenorio Cholesterol in HDL [Mass/Vol] 49 mg/dL Normal 40-60 [facility] Comment on above: Performed By: #### B MP, CMREP, LIPID #### [facility] [address] [place] [address] Dr. Jeimy Tenorio Cholesterol in LDL [Mass/Vol] 64.6 mg/dL Normal [facility] Comment on above: Performed By: #### B MP, CMREP, LIPID #### [facility] [address] [place] [address] Dr. Jeimy Tenorio Cholesterol.total/Ch olesterol in HDL [Mass ratio] 2.9 {ratio} Normal [facility] Comment on above: Performed By: #### B MP, CMREP, LIPID #### [facility] [address] [place] [address] Dr. Jeimy Tenorio HDL NORMAL > or = 60 mg/dl - LOW CARDIOVASCULAR RISK <40 mg/dl - HIGH CARDIOVASCULAR RISK Normal [facility] Comment on above: Performed By: #### B MP, CMREP, LIPID #### [facility] [address] [place] [address] Dr. Jeimy Tenorio LDL CALC NORMAL SEE BELOW Normal [facility] Comment on above: Result Comment: <100 mg/dl OPTIMAL 100 - 129 mg/dl NEAR OR ABOVE OPTIMAL 130 - 159 mg/dl BORDERLINE HIGH 160 - 189 mg/dl HIGH >190 mg/dl VERY HIGH Performed By: #### B MP, CMREP, LIPID #### [facility] [address] [address] [address] Jeimy Tenorio Triglyceride [Mass/Vol] 142 mg/dL Normal <=150 [facility] Comment on above: Performed By: #### B MP, CMREP, LIPID #### [facility] [address] [address] [address] Jeimy Tenorio VLDL CALC 28.4 mg/dL Normal [facility] Comment on above: Performed By: #### B MP, CMREP, LIPID #### [facility] [address] [place] [address] Dr. Jeimy Tenorio PROF CHEM 8 (BAS METB)on Anion gap [Moles/Vol] 10.1 mmol/L Normal [facility] Comment on above: Performed By: #### B MP, CMREP, LIPID #### [facility] [address] [address] [address] Jeimy Tenorio Calcium [Mass/Vol] 8.0 mg/dL Critically low 8.5-10.1 [facility] Comment on above: Performed By: #### B MP, CMREP, LIPID #### [facility] [address] [address] [address] Jeimy Tenorio Chloride [Moles/Vol] 104 mmol/L Normal 98-107 [facility] Comment on above: Performed By: #### B MP, CMREP, LIPID #### [facility] [address] [address] [address] Jeimy Tenorio CO2 [Moles/Vol] 27.0 mmol/L Normal 21.0-32.0 [facility] Comment on above: Performed By: #### B MP, CMREP, LIPID #### [facility] [address] [address] [address] Jeimy Tenorio Creatinine [Mass/Vol] 0.79 mg/dL Normal 0.70-1.30 [facility] Comment on above: Performed By: #### B MP, CMREP, LIPID #### [facility] [address] [address] [address] Jeimy Tenorio EGFR-AF DANISH >60 Normal >=60 [facility] Comment on above: Performed By: #### B MP, CMREP, LIPID #### [facility] [address] [address] [address] Jeimy Tenorio EGFR-NON AF DANISH >60 Normal >=60 [facility] Comment on above: Performed By: #### B MP, CMREP, LIPID #### [facility] [address] [place] [address] Dr. Jeimy Tenorio Glucose [Mass/Vol] 101 mg/dL Normal 74-106 [facility] Comment on above: Performed By: #### B MP, CMREP, LIPID #### [facility] [address] [place] [address] Dr. Jeimy Tenorio Potassium [Moles/Vol] 4.1 mmol/L Normal 3.5-5.1 [facility] Comment on above: Performed By: #### B MP, CMREP, LIPID #### [facility] [address] [place] [address] Dr. Jeimy Tenorio Sodium [Moles/Vol] 137 mmol/L Normal 136-145 [facility] Comment on above: Performed By: #### B MP, CMREP, LIPID #### [facility] [address] [place] [address] Dr. Jeimy Tenorio Urea nitrogen [Mass/Vol] 15.0 mg/dL Normal 7.0-18.0 [facility] Comment on above: Performed By: #### B MP, CMREP, LIPID #### [facility] [address] [place] [address] Dr. Jeimy Tenorio Urea nitrogen/Creatinine [Mass ratio] 19.0 mg/mg Normal [facility] Comment on above: Performed By: #### B MP, CMREP, LIPID #### [facility] [address] [place] [address] Dr. Jeimy Tenorio CARDIAC SAWYER ADMITon 022 CK [Catalytic activity/Vol] 50 U/L Normal 39-308 [facility] Comment on above: Performed By: #### C BC #### [facility] [address] [place] [address] Dr. Jeimy Tenorio CK.MB [Mass/Vol] 0.80 ng/mL Normal <=3.60 [facility] Comment on above: Performed By: #### C BC #### [facility] [address] [place] [address] Dr. Jeimy Tenorio HSTROP 5.2 pg/mL Normal 4.0-76.1 [facility] Comment on above: Result Comment: CUT- OFF POINTS HAVE BEEN ESTABLISHED BASED ON THE FOURTH UNIVERSAL DEFINITIONS OF MYOCARDIAL INFARCTION. THE UPPER REFERENCE LIMIT (URL) OF TROPONIN, DEFINED THE 99TH PERCENTILE OF cTnI DISTRIBUTION IN A REFERENCE POPULATION, HAS BEEN CONFIRMED THE DECISION THRESHOLD FOR CA DIAGNOSIS. Performed By: #### C BC #### [facility] [address] [place] [address] Dr. Jeimy Tenorio MAGALIE 41 ng/mL Normal 16-96 [facility] Comment on above: Performed By: #### C BC #### [facility] [address] [place] [address] Dr. Jeimy Tenorio CBC AUTO DIFFon 06-11-2022 BASO # 0.0 103/ul Normal 0.0-0.1 [facility] Comment on above: Performed By: #### C BC #### [facility] [address] [place] [address] Dr. Jeimy Tenorio Basophils/100 WBC (Bld) 0.6 % Normal 0.2-2.0 [facility] Comment on above: Performed By: #### C BC #### [facility] [address] [place], [place] [address] Dr. Jeimy Tenorio EO # 0.4 103/ul Normal 0.0-0.7 [facility] Comment on above: Performed By: #### C BC #### [facility] [address] [place] [address] Dr. Jeimy Tenorio Eosinophils/100 WBC (Bld) 4.9 % Normal 0.9-7.0 [facility] Comment on above: Performed By: #### C BC #### [facility] [address] [place] [address] Dr. Jeimy Tenorio Erythrocyte distribution width (RBC) [Ratio] 13.1 % Normal 11.0-15.0 [facility] Comment on above: Performed By: #### C BC #### [facility] [address] [place] [address] Dr. Jeimy Tenorio Hematocrit (Bld) [Volume fraction] 38.1 % Critically low 42.0-54.0 [facility] Comment on above: Performed By: #### C BC #### [facility] [address] [place] [address] Dr. Jeimy Tenorio Hemoglobin (Bld) [Mass/Vol] 13.0 g/dL Critically low 14.0-18.0 [facility] Comment on above: Performed By: #### C BC #### [facility] [address] [place] [address] Dr. Jeimy Tenorio IG # 0.02 10e3/ul Normal 0.00-0.03 [facility] Comment on above: Performed By: #### C BC #### [facility] [address] [place] [address] Dr. Jeimy Tenorio IG % 0.3 % Normal 0.0-0.5 [facility] Comment on above: Performed By: #### C BC #### [facility] [address] [place] [address] Dr. Jeimy Tenorio LYMPH # 1.7 103/ul Normal 1.2-3.8 [facility] Comment on above: Performed By: #### C BC #### [facility] [address] [place] [address] Dr. Jeimy Tenorio Lymphocytes/100 WBC (Bld) 22.9 % Normal 20.5-60.0 [facility] Comment on above: Performed By: #### C BC #### [facility] [address] [place] [address] Dr. Jeimy Tenorio MANUAL DIFF REQ NO Normal [facility] Comment on above: Performed By: #### C BC #### [facility] [address] [place] [address] Dr. Jeimy Tenorio MCH (RBC) [Entitic mass] 33.5 pg Normal 25.9-34.0 [facility] Comment on above: Performed By: #### C BC #### [facility] [address] [place] [address] Dr. Jeimy Tenorio MCHC (RBC) [Mass/Vol] 34.1 g/dL Normal 29.9-35.2 [facility] Comment on above: Performed By: #### C BC #### [facility] [address] [place] [address] Dr. Jeimy Tenorio MCV (RBC) [Entitic vol] 98.2 fL Critically high 80.0-94.0 [facility] Comment on above: Performed By: #### C BC #### [facility] [address] [place] [address] Dr. Jeimy Tenorio MONO # 0.8 103/ul Normal 0.3-0.8 [facility] Comment on above: Performed By: #### C BC #### [facility] [address] [place] [address] Dr. Jeimy Tenorio Monocytes/100 WBC (Bld) 11.5 % Normal 1.7-12.0 [facility] Comment on above: Performed By: #### C BC #### [facility] [address] [place] [address] Dr. Jeimy Tenorio NEUT # 4.3 103/ul Normal 1.4-6.5 [facility] Comment on above: Performed By: #### C BC #### [facility] [address] [place] [address] Dr. Jeimy Tenorio Neutrophils/100 WBC (Bld) 59.8 % Normal 43.0-75.0 [facility] Comment on above: Performed By: #### C BC #### [facility] [address] [place] [address] Dr. Jeimy Tenorio Platelet mean volume (Bld) [Entitic vol] 9.8 fL Normal 9.5-13.5 [facility] Comment on above: Performed By: #### C BC #### [facility] [address] [place] [address] Dr. Jeimy Tenorio PLT 181 103/ul Normal 150-450 [facility] Comment on above: Performed By: #### C BC #### [facility] [id number] Jeimy Tenorio RBC 3.88 106/ul Critically low 4.70-6.10 [facility] Comment on above: Performed By: #### C BC #### [facility] [address] [address] [address] Jeimy Tenorio WBC 7.2 103/ul Normal 4.0-11.0 [facility] Comment on above: Performed By: #### C BC #### [facility] [address] [place] [address] Dr. Jeimy Tenorio D-DIMERon 06-11-2022 D-DIMER 0.63 mg/L FEU Critically high <=0.59 [facility] Comment on above: Performed By: #### D DIM #### [facility] [address] [place] [address] Dr. Jeimy Tenorio D-DIMER COMMENTS SEE BELOW Normal [facility] Comment on above: Result Comment: Incr [...] hospitalization. Performed By: #### D DIM #### [facility] [address] [place] [address] Dr. Jeimy Tenorio PROF 14(COMP METB)on 022 Albumin [Mass/Vol] 3.3 g/dL Critically low 3.4-5.0 [facility] Comment on above: Performed By: #### C BC #### [facility] [address] [place] [address] Dr. Jeimy Tenorio Albumin/Globulin [Mass ratio] 0.8 {ratio} Normal [facility] Comment on above: Performed By: #### C BC #### [facility] [address] [place] [address] Dr. Jeimy Tenorio ALP [Catalytic activity/Vol] 160 U/L Critically high 46-116 [facility] Comment on above: Performed By: #### C BC #### [facility] [address] [place] [address] Dr. Jeimy Tenorio ALT [Catalytic activity/Vol] 26 U/L Normal 16-63 [facility] Comment on above: Performed By: #### C BC #### [facility] [address] [place] [address] Dr. Jeimy Tenorio Anion gap [Moles/Vol] 10.4 mmol/L Normal [facility] Comment on above: Performed By: #### C BC #### [facility] [address] [place] [address] Dr. Jeimy Tenorio AST [Catalytic activity/Vol] 16 U/L Normal 15-37 [facility] Comment on above: Performed By: #### C BC #### [facility] [address] [place] [address] Dr. Jeimy Tenorio Bilirubin [Mass/Vol] 0.2 mg/dL Normal 0.2-1.0 [facility] Comment on above: Performed By: #### C BC #### [facility] [address] [place] [address] Dr. Jeimy Tenorio Calcium [Mass/Vol] 8.2 mg/dL Critically low 8.5-10.1 [facility] Comment on above: Performed By: #### C BC #### [facility] [address] [place] [address] Dr. Jeimy Tenorio Chloride [Moles/Vol] 105 mmol/L Normal 98-107 [facility] Comment on above: Performed By: #### C BC #### [facility] [address] [place] [address] Dr. Jeimy Tenorio CO2 [Moles/Vol] 26.5 mmol/L Normal 21.0-32.0 [facility] Comment on above: Performed By: #### C BC #### [facility] [address] [place] [address] Dr. Jeimy Tenorio Creatinine [Mass/Vol] 0.96 mg/dL Normal 0.70-1.30 [facility] Comment on above: Performed By: #### C BC #### [facility] [address] [place] [address] Dr. Jeimy Tenorio EGFR-AF DANISH >60 Normal >=60 [facility] Comment on above: Performed By: #### C BC #### [facility] [address] [place] [address] Dr. Jeiym Tenorio EGFR-NON AF DANISH >60 Normal >=60 [facility] Comment on above: Performed By: #### C BC #### [facility] [address] [place] [address] Dr. Jeimy Tenorio Globulin (S) [Mass/Vol] 4.0 g/dL Normal [facility] Comment on above: Performed By: #### C BC #### [facility] [address] [place] [address] Dr. Jeimy Tenorio Glucose [Mass/Vol] 140 mg/dL Critically high 74-106 [facility] Comment on above: Performed By: #### C BC #### [facility] [address] [place] [address] Dr. Jeimy Tenorio Potassium [Moles/Vol] 3.9 mmol/L Normal 3.5-5.1 [facility] Comment on above: Performed By: #### C BC #### [facility] [address] [place] [address] Dr. Jeimy Tenorio Protein [Mass/Vol] 7.3 g/dL Normal 6.4-8.2 [facility] Comment on above: Performed By: #### C BC #### [facility] [address] [place] [address] Dr. Jeimy Tenoiro Sodium [Moles/Vol] 138 mmol/L Normal 136-145 [facility] Comment on above: Performed By: #### C BC #### [facility] [address] [place], [place] [address] Dr. Jeimy Tenorio Urea nitrogen [Mass/Vol] 15.0 mg/dL Normal 7.0-18.0 [facility] Comment on above: Performed By: #### C BC #### [facility] [address] [place], [place] [address] Dr. Jeimy Tenorio Urea nitrogen/Creatinine [Mass ratio] 15.6 mg/mg Normal [facility] Comment on above: Performed By: #### C BC #### [facility] [address] [address] [address] Jeimy Tenorio [facility] 10-30-2021 Albumin [Mass/Vol] 4.3 g/dL Normal 3.6-5.1 [facility] Comment on above: Performed By: #### 7 , 7599, 70189 #### [facility] [place] [address] Tin Pot Operator: Yash Campuzano MD Albumin/Globulin [Mass ratio] 1.3 {ratio} Normal 1.0-2.5 [facility] Comment on above: Performed By: #### 7 , 7599, 80148 #### [facility] [place] [address] [employer] Pot Operator: Yash Campuzano MD ALP [Catalytic activity/Vol] 152 U/L High 35-144 [facility] Comment on above: Performed By: #### 7 , 7599, 89796 #### [facility] [place] [address] Tin Pot Operator: Yash Campuzano MD ALT [Catalytic activity/Vol] 30 U/L Normal 9-46 [facility] Comment on above: Performed By: #### 7 , 7599, 73386 #### [facility] [place] [address] [employer] Pot Operator: Yash Campuzano MD AST [Catalytic activity/Vol] 26 U/L Normal 10-35 [facility] Comment on above: Performed By: #### 7 13, 7600, 17270 #### [facility] [address], [address] [place] [address] [employer] Pot Operator: Yash Campuzano MD Bilirubin [Mass/Vol] 0.4 mg/dL Normal 0.2-1.2 [facility] Comment on above: Performed By: #### 7 13, 0, 22634 #### [facility] of [address], [address] [place] [address] Tin Pot Operator: Yash Campuzano MD BUN/CREATININE RATIO NOT APPLICABLE Normal 6-22 [facility] Comment on above: Performed By: #### 7 13, 7599, 11743 #### [facility] [place] [address] [employer] Pot Operator: Yash Campuzano MD Calcium [Mass/Vol] 8.8 mg/dL Normal 8.6-10.3 [facility] Comment on above: Performed By: #### 7 13, 0, 15327 #### [facility] [place] [address] [employer] Pot Operator: Yash Campuzano MD Chloride [Moles/Vol] 104 mmol/L Normal 98-110 [facility] Comment on above: Performed By: #### 7 13, 7599, 58861 #### [facility] [place] [address] [employer] Pot Operator: Yash Campuzano MD CO2 [Moles/Vol] 25 mmol/L Normal 20-32 [facility] Comment on above: Performed By: #### 7 13, 7600, 88754 #### [facility] of [place] [address] Tin Pot Operator: Yash Campuzano MD Creatinine [Mass/Vol] 0.76 mg/dL Normal 0.70-1.25 [facility] Comment on above: Result Comment: For patients >49 years of age, the reference limit for Creatinine is approximately 13% higher for people identified as -Ukrainian. Performed By: #### 7 , 760, 71298 #### [facility] [address], [address] [place] [address] [employer] Pot Operator: Yash Campuzano MD eGFR NON-AFR. DANISH 95 mL/min/1.73m2 Normal > OR = 60 [facility] Comment on above: Performed By: #### 7 13, 0, 64889 #### [facility] of [address], [address] [place] [address] [employer] Pot Operator: Yash Campuzano MD GFR/1.73 sq M.predicted among blacks MDRD (S/P/Bld) [Vol rate/Area] 110 mL/min/{1.73_m2} Normal > OR = 60 [facility] Comment on above: Performed By: #### 7 13, 7599, 01859 #### [facility] of [address], [address] [place] [address] [employer] Pot Operator: Yash Campuzano MD Globulin (S) [Mass/Vol] 3.2 g/dL Normal 1.9-3.7 [facility] Comment on above: Performed By: #### 7 , 7599, 16772 #### [facility] [address], [address] [place] [address] [employer] Pot Operator: Yash Campuzano MD Glucose [Mass/Vol] 103 mg/dL High 65-99 [facility] Comment on above: Result Comment: Fasting reference interval For someone without known diabetes, a glucose value between 100 and 125 mg/dL is consistent with prediabetes and should be confirmed with a follow-up test. Performed By: #### 7 13, 7599, 97443 #### [facility] [address], [address] [place] [address] Tin Pot Operator: Yash Campuzano MD Potassium [Moles/Vol] 4.7 mmol/L Normal 3.5-5.3 [facility] Comment on above: Performed By: #### 7 , 7599, 73518 #### [facility] [address], [address] [place] [address] [employer] Pot Operator: Yash Campuzano MD Protein [Mass/Vol] 7.5 g/dL Normal 6.1-8.1 [facility] Comment on above: Performed By: #### 7 13, 0, 53168 #### [facility] [place] [address] Tin Pot Operator: Yash Campuzano MD Sodium [Moles/Vol] 137 mmol/L Normal 135-146 [facility] Comment on above: Performed By: #### 7 13, 0, 21540 #### [facility] [place] [address] [employer] Pot Operator: Yash Campuzano MD Urea nitrogen [Mass/Vol] 15 mg/dL Normal 7-25 [facility] Comment on above: Performed By: #### 7 13, 7599, 35148 #### [facility] [place] [address] [employer] Pot Operator: Yash Campuzano MD LIPID PANEL, [place] [address] Cholesterol [Mass/Vol] 180 mg/dL Normal <200 [facility] Comment on above: Order Comment: FASTI NG:YES FASTING: YES Performed By: #### 7 13, 0, 78647 #### [facility] [place] [address] [employer] Pot Operator: Yash Campuzano MD Cholesterol in HDL [Mass/Vol] 50 mg/dL Normal > OR = 40 [facility] Comment on above: Order Comment: FASTI NG:YES FASTING: YES Performed By: #### 7 13, 0, 16926 #### [facility] of [place] [address] Tin Pot Operator: Yash Campuazno MD Cholesterol in LDL [Mass/Vol] 90 mg/dL Normal [facility] Comment on above: Order Comment: FASTI NG:YES FASTING: YES Result Comment: Refe rence range: <100 Desirable range <100 mg/dL for primary prevention; <70 mg/dL for patients with CHD or diabetic patients with > or = 2 CHD risk factors. LDL-C is now calculated using the Gennaro-Melendrez calculation, which is a validated novel method providing better accuracy than the Friedewald equation in the estimation of LDL-C. Gennaro SS et al. KO. 2013;310(19): 0810-6664 (http://education.[employer]/faq/YEG841) Performed By: #### 7 , 7600, 76233 #### [facility] [address], [address] [place] [address] Tin Pot Operator: Yash Campuzano MD Cholesterol.total/Ch olesterol in HDL [Mass ratio] 3.6 {ratio} Normal <5.0 [facility] Comment on above: Order Comment: FASTI NG:YES FASTING: YES Performed By: #### 7 , 2720, 15572 #### [facility] [address], [address] [place] [address] Tin Pot Operator: Yash Campuzano MD NON HDL CHOLESTEROL 130 mg/dL (calc) High <130 [facility] Comment on above: Order Comment: FASTI NG:YES FASTING: YES Result Comment: For patients with diabetes plus 1 major ASCVD risk factor, treating to a non-HDL-C goal of <100 mg/dL (LDL-C of <70 mg/dL) is considered a therapeutic option. Performed By: #### 7 , 406, 02439 #### [facility] [place] [address] Tin Pot Operator: Yash Campuzano MD Triglyceride [Mass/Vol] 280 mg/dL High <150 [facility] Comment on above: Order Comment: FASTI NG:YES FASTING: YES Result Comment: If a non-fasting specimen was collected, consider repeat triglyceride testing on a fasting specimen if clinically indicated. Marquise et al. J. of Clin. Lipidol. 2015;9:129-169. Performed By: #### 7 , 5660, 52627 #### [facility] [address], [address] [place] [address] Tin Pot Operator: Yash Campuzano MD PHENYTOINon 10-30-2021 Phenytoin [Mass/Vol] 18.9 ug/mL Normal 10.0-20.0 [facility] Comment on above: Performed By: #### 7 13, 7600, 05174 #### [facility] of [place] [address] Tin Pot Operator: Yash Campuzano MD CBC (INCLUDES DIFF/PLT)on Basophils (Bld) [#/Vol] 0.071 10*3/uL Normal 0-200 [facility] Comment on above: Performed By: #### 7 13, 7599, 6399 #### [facility] of [address], [address] [place] [address] Tin Pot Operator: Yash Campuzano MD Basophils/100 WBC (Bld) 1.2 % Normal [facility] Comment on above: Performed By: #### 7 13, 760, 6399 #### [facility] of [place] [address] Tin Pot Operator: Yash Campuzano MD Eosinophils (Bld) [#/Vol] 0.277 10*3/uL Normal 15-500 [facility] Comment on above: Performed By: #### 7 13, 7599, 6399 #### [facility] of [place] [address] Tin Pot Operator: Yash Campuzano MD Eosinophils/100 WBC (Bld) 4.7 % Normal [facility] Comment on above: Performed By: #### 7 13, 7599, 6399 #### [facility] of [place] [address] Tin Pot Operator: Yash Campuzano MD Erythrocyte distribution width (RBC) [Ratio] 12.8 % Normal 11.0-15.0 [facility] Comment on above: Performed By: #### 7 13, 760, 6399 #### [facility] of [place] [address] Tin Pot Operator: Yash Campuzano MD Hematocrit (Bld) [Volume fraction] 42.1 % Normal 38.5-50.0 [facility] Comment on above: Performed By: #### 7 13, 760, 6399 #### [facility] of [address], [address] [place] [address] Tin Pot Operator: Yash Campuzano MD Hemoglobin (Bld) [Mass/Vol] 14.9 g/dL Normal 13.2-17.1 [facility] Comment on above: Performed By: #### 7 , 7599, 6399 #### [facility] of [address], [address] [place] [address] Tin Pot Operator: Yash Campuzano MD Lymphocytes (Bld) [#/Vol] 1.068 10*3/uL Normal 850-3900 [facility] Comment on above: Performed By: #### 7 , 7599, 6399 #### [facility] of [place] [address] Tin Pot Operator: Yash Campuzano MD Lymphocytes/100 WBC (Bld) 18.1 % Normal [facility] Comment on above: Performed By: #### 7 , 7599, 6399 #### [facility] of [place] [address] Tin Pot Operator: Yash Campuzano MD MCH (RBC) [Entitic mass] 32.9 pg Normal 27.0-33.0 [facility] Comment on above: Performed By: #### 7 , 7599, 6399 #### [facility] of [place] [address] Tin Pot Operator: Yash Campuzano MD MCHC (RBC) [Mass/Vol] 35.4 g/dL Normal 32.0-36.0 [facility] Comment on above: Performed By: #### 7 , 7599, 6399 #### [facility] of [place] [address] Tin Pot Operator: Yash Campuzano MD MCV (RBC) [Entitic vol] 92.9 fL Normal 80.0-100.0 [facility] Comment on above: Performed By: #### 7 , 7599, 6399 #### [facility] of [address] [place] [address] Tin Pot Operator: Yash Campuzano MD Monocytes (Bld) [#/Vol] 0.531 10*3/uL Normal 200-950 [facility] Comment on above: Performed By: #### 7 13, 760, 6399 #### [facility] of [address], [address] [place] [address] Tin Pot Operator: Yash Campuzano MD Monocytes/100 WBC (Bld) 9.0 % Normal [facility] Comment on above: Performed By: #### 7 13, 7599, 6399 #### [facility] of [place] [address] Tin Pot Operator: Yash Campuzano MD Neutrophils (Bld) [#/Vol] 3.953 10*3/uL Normal 6529-3046 [facility] Comment on above: Performed By: #### 7 13, 7599, 6399 #### [facility] of [address], [address] [place] [address] Tin Pot Operator: Yash Campuzano MD Neutrophils/100 WBC (Bld) 67 % Normal [facility] Comment on above: Performed By: #### 7 13, 7599, 6399 #### [facility] of [place] [address] Tin Pot Operator: Yash Campuzano MD Platelet mean volume (Bld) [Entitic vol] 11.0 fL Normal 7.5-12.5 [facility] Comment on above: Performed By: #### 7 13, 7599, 6399 #### [facility] of [address], [address] [place] [address] Tin Pot Operator: Yash Campuzano MD Platelets (Bld) [#/Vol] 200 10*3/uL Normal 140-400 [facility] Comment on above: Performed By: #### 7 13, 760, 6399 #### [facility] of [address], [address] [place] [address] Tin Pot Operator: Yash Campuzano MD RBC (Bld) [#/Vol] 4.53 10*6/uL Normal 4.20-5.80 [facility] Comment on above: Performed By: #### 7 13, 7600, 6399 #### [facility] [address], [address] [place] [address] Tin Pot Operator: Yash Campuzano MD WBC (Bld) [#/Vol] 5.9 10*3/uL Normal 3.8-10.8 [facility] Comment on above: Performed By: #### 7 13, 7600, 6399 #### [facility] [address], [address] [place] [address] Tin Pot Operator: Yash Campuzano MD LIPID PANEL, [place] [address] Cholesterol [Mass/Vol] 218 mg/dL High <200 [facility] Comment on above: Order Comment: FASTI NG:YES FASTING: YES Performed By: #### 7 13, 7600, 6399 #### [facility] [address], [address] [place] [address] Tin Pot Operator: Yash Campuzano MD Cholesterol in HDL [Mass/Vol] 55 mg/dL Normal > OR = 40 [facility] Comment on above: Order Comment: FASTI NG:YES FASTING: YES Performed By: #### 7 13, 7600, 6399 #### [facility] [place] [address] Tin Pot Operator: Yash Campuzano MD Cholesterol in LDL [Mass/Vol] [...] LDL-C. Gennaro ALMANZAR et al. KO. 2013;310(19): 5166-3835 (http://education.[employer]/faq/QAI963) Performed By: #### 7 13, 7600, 7791 #### [facility] [address], [address] [place] [address] Tin Pot Operator: Yash Campuzano MD Cholesterol.total/Ch olesterol in HDL [Mass ratio] 4.0 {ratio} Normal <5.0 [facility] Comment on above: Order Comment: FASTI NG:YES FASTING: YES Performed By: #### 7 , 7599, 2791 #### [facility] [address], [address] [place] [address] Tin Pot Operator: Yash Campuzano MD NON HDL CHOLESTEROL 163 mg/dL (calc) High <130 [facility] Comment on above: Order Comment: FASTI NG:YES FASTING: YES Result Comment: For patients with diabetes plus 1 major ASCVD risk factor, treating to a non-HDL-C goal of <100 mg/dL (LDL-C of <70 mg/dL) is considered a therapeutic option. Performed By: #### 7 , 7599, 5954 #### [facility] [address], [address] [place] [address] [employer] Pot Operator: Yash Campuzano MD Triglyceride [Mass/Vol] 200 mg/dL High <150 [facility] Comment on above: Order Comment: FASTI NG:YES FASTING: YES Result Comment: If a non-fasting specimen was collected, consider repeat triglyceride testing on a fasting specimen if clinically indicated. Marquise et al. J. of Clin. Lipidol. 2015;9:129-169. Performed By: #### 7 , 7599, 8555 #### [facility] [address], [address] [place] [address] [employer] Pot Operator: Yash Campuzano MD PHENYTOINon 04-18-2021 Phenytoin [Mass/Vol] 25.0 ug/mL High 10.0-20.0 [facility] Comment on above: Performed By: #### 7 , 056, 5991 #### [facility] [address], [address] [place] [address] [employer] Pot Operator: Yash Campuzano MD APTTon 11-20-2020 aPTT Coag (Bld) [Time] 33.4 s Normal 25.0-35.0 [facility] Comment on above: Result Comment: ALL [...] THIS PURPOSE. Performed By: #### 5 6101, 42043 ####[facility] BNP EDon 11-20-2020 Natriuretic peptide B (Bld) [Mass/Vol] 111 pg/mL High 0-100 [facility] Comment on above: Result Comment: Give n the appropriate clinical setting a BNP result of >100 pg/mL indicates congestive heart failure. Performed By: #### 3 0935 #### [facility] [address] CBC W/DIFFon 11-20-2020 ABS IMM GRANS 0.0 10*3/uL Normal 0.0-0.2 [facility] Comment on above: Performed By: #### 5 0103 ####[facility] ABS NEUTROPHILS 3.9 10*3/uL Normal 1.6-7.6 [facility] Comment on above: Performed By: #### 5 0103 ####[facility] [place] [address], [facility] Basophils (Bld) [#/Vol] 0.1 10*3/uL Normal 0.0-0.2 [facility] Comment on above: Performed By: #### 5 0103 ####[facility] [place] [address], [facility] Basophils/100 WBC (Bld) 1.0 % Normal 0.0-1.0 [facility] Comment on above: Performed By: #### 5 0103 ####[facility] [facility] [address] Eosinophils (Bld) [#/Vol] 0.3 10*3/uL Normal 0.0-0.5 [facility] Comment on above: Performed By: #### 5 0103 ####[facility]3000 [facility].[address] Eosinophils/100 WBC (Bld) 5.1 % Normal 0.0-6.0 [facility] Comment on above: Performed By: #### 5 3 ####[place] [id number] [address] Erythrocyte distribution width (RBC) [Ratio] 13.1 % Normal 11.5-15.0 [facility] Comment on above: Performed By: #### 3 ####[facility] [address] Hematocrit (Bld) [Volume fraction] 45.4 % Normal 39.0-50.0 [facility] Comment on above: Performed By: #### 5 3 ####[facility] [address] Hemoglobin (Bld) [Mass/Vol] 14.8 g/dL Normal 13.0-17.0 [facility] Comment on above: Performed By: #### 5 3 ####[facility] [address] IMMATURE GRANS 0.3 % Normal 0.0-1.0 The [facility] Comment on above: Performed By: #### 3 ####[address] Lymphocytes (Bld) [#/Vol] 1.0 10*3/uL Low 1.2-4.0 [facility] Comment on above: Performed By: #### 5 0103 ####[facility]3000 [facility].[address] Lymphocytes/100 WBC (Bld) 17.5 % Low 20.0-45.0 [facility] Comment on above: Performed By: #### 5 0103 ####[facility]3000 [facility].[address] MCH (RBC) [Entitic mass] 32.5 pg Normal 27.0-33.0 [facility] Comment on above: Performed By: #### 5 0103 ####[facility] [address] MCHC (RBC) [Mass/Vol] 32.6 g/dL Normal 32.0-35.0 [facility] Comment on above: Performed By: #### 5 0103 ####[facility] [address] MCV (RBC) [Entitic vol] 99.6 fL High 82.0-98.0 [facility] Comment on above: Performed By: #### 5 3 ####[facility] [address] Monocytes (Bld) [#/Vol] 0.6 10*3/uL Normal 0.1-1.0 [facility] Comment on above: Performed By: #### 3 ####[facility] [address] MONOS 9.4 % Normal 5.0-12.0 [facility] Comment on above: Performed By: #### 5 3 ####[facility] [place] [address], [facility] Neutrophils/100 WBC (Bld) 66.7 % Normal 40.0-72.[address] [facility] Comment on above: Performed By: #### 5 0103 ####[facility] Nucleated RBC/100 WBC (Bld) [Ratio] 0 % Normal 0-0 [facility] Comment on above: Performed By: #### 5 0103 ####[facility] [address] PLAT CNT 175 10*3/uL Normal 150-400 [facility] Comment on above: Performed By: #### 5 0103 ####[facility] RBC (Bld) [#/Vol] 4.56 10*6/uL Normal 4.20-5.70 The [facility] Comment on above: Performed By: #### 5 0103 ####[facility] WBC (Bld) [#/Vol] 5.88 10*3/uL Normal 4.00-10.60 [facility] Comment on above: Performed By: #### 5 0103 ####[facility] COMP METABOLIC PANELon 11-20 Albumin [Mass/Vol] 4.0 g/dL Normal 3.5-5.[address] [facility] Comment on above: Performed By: #### 0 0121, 52064, 90231, 85063 #### [facility] 3000 [facility]. [address] ALKALINE PHOSPH 130 IU/L High 34-104 [facility] Comment on above: Performed By: #### 0 0121, 21404, 89328, 50936 #### [facility] [address] [place] [address], [place] ALT [Catalytic activity/Vol] 18 U/L Normal 7-52 [facility] Comment on above: Performed By: #### 0 0121, 39704, 90288, 44601 #### [facility] [address] [place] [address], [place] AST [Catalytic activity/Vol] 19 U/L Normal 13-39 [facility] Comment on above: Performed By: #### 0 0121, 56053, 94333, 18119 #### [facility] [address] [place] [address], [place] Bilirubin [Mass/Vol] 0.4 mg/dL Normal 0.3-1.0 [facility] Comment on above: Performed By: #### 0 0121, 13769, 02971, 06368 #### [facility] [address] [place] [address], [place] Calcium [Mass/Vol] 9.0 mg/dL Normal 8.6-10.[address] [facility] Comment on above: Performed By: #### 0 0121, 05224, 79281, 69691 #### [facility] [address] [place] [address], [place] Chloride [Moles/Vol] 103 mmol/L Normal 98-107 [facility] Comment on above: Performed By: #### 0 0121, 09661, 97763, 53006 #### [facility] [address] [place] [address], [place] CO2 [Moles/Vol] 28 mmol/L Normal 21-31 [facility] Comment on above: Performed By: #### 0 0121, 23122, 12937, 12358 #### [facility] [address] [place] [address], [place] Creatinine [Mass/Vol] 0.77 mg/dL Normal 0.70-1.30 [facility] Comment on above: Performed By: #### 0 0121, 70513, 30140, 51172 #### [facility] [address] [place] [address], [place] GFR/1.73 sq M.predicted among blacks MDRD (S/P/Bld) [Vol rate/Area] mL/min/{1.73_m2} Normal >60 [facility] Comment on above: Performed By: #### 0 0121, 31640, 67758, 62993 #### [facility] [address] [place] [address], [place] GFR/1.73 sq M.predicted among non-blacks MDRD (S/P/Bld) [Vol rate/Area] mL/min/{1.73_m2} Normal >60 [facility] Comment on above: Performed By: #### 0 0121, 44463, 90186, 36767 #### [facility] [address] [place] [address], [place] Glucose [Mass/Vol] 88 mg/dL Normal 70-100 The [facility] Comment on above: Performed By: #### 0 0121, 09810, 97445, 14851 #### [facility] [address] [place] [address], [place] Potassium [Moles/Vol] 4.9 mmol/L Normal 3.5-5.1 [facility] Comment on above: Performed By: #### 0 0121, 40726, 59068, 38646 #### [facility] [address] [place] [address], [place] Protein [Mass/Vol] 7.3 g/dL Normal 6.0-8.3 The [facility] Comment on above: Performed By: #### 0 0121, 51285, 21700, 68522 #### [facility] [address] [place] [address], [place] Sodium [Moles/Vol] 138 mmol/L Normal 136-145 The [facility] Comment on above: Performed By: #### 0 0121, 26640, 72358, 48923 #### [facility] 3000 [facility] [place], [place] [address] [place] [address] Urea nitrogen [Mass/Vol] 15 mg/dL Normal 7-25 [facility] Comment on above: Performed By: #### 0 0121, 94027, 38316, 47663 #### [facility] 3000 [place] [address], [facility] CTA HEADon 11-20-2020 CTA HEAD [facility] Department of Radiology [address] [place] [id number] Patient Name: NAZARIO CORTES : 1955 Sex: M Age: Race: White Pt. Location: [facility] Patient Status: E Ordered Date: 11/20/2020 11:20:00 [...] stenosis of the major vessels of the [place]. origin of bilateral posterior cerebral arteries. IMPRESSION: Normal CTA of the brain. All CT scans at this facility use dose modulation, iterative reconstruction, and/or weight based dosing when appropriate to reduce radiation dose to as low as reasonably achievable. Electronically signed: Dhaval Ghotra. Transcribed by: [email or web address], User Resident: Electronically Signed by: DHAVAL GHOTRA @ 11/20/2020 12:58 PM Normal [facility] Comment on above: Order Comment: Bleed CTA NECKon 11-20-2020 CTA NECK [facility] Department of Radiology [address] [place] [id number] Patient Name: NAZARIO CORTES : 1955 Sex: M Age: Race: White Pt. Location: [facility] Patient Status: E Ordered Date: 11/20/2020 11:20:00 [...] viewed on a separate workstation. The [place] Symptomatic Carotid Endarterectomy Trial (NASCET) method for [...] low as reasonably achievable Electronically signed: Dhaval Ghotra. Transcribed by: [email or web address], User Resident: Electronically Signed by: DHAVAL GHOTRA @ 11/20/2020 12:57 PM Normal [facility] DIRECT BILIon 11-20-2020 Bilirubin.direct [Mass/Vol] 0.1 mg/dL Normal 0.0-0.2 [facility] Comment on above: Order Comment: Liver Battery conflicts with Comprehensive Metabolic Panel. Liver Battery canceled and Direct Bilirubin added. Performed By: #### 0 0121, 04833, 95117, 95884 #### [facility] 3000 [facility]. [address] LIPASE BLOODon 11-20-2020 LIPASE 27 Units/L Normal 11-82 [facility] Comment on above: Performed By: #### 0 0121, 86131, 71556, 29665 #### [facility] 3000 [facility]. [address] POC SARS COV2 ANTIGEN NEGATI VEon 11-20-2020 POC SARS COV2 ANTIGEN N Negative Normal NEGATIVE [facility] Comment on above: Result Comment: Test performed on [employer] System for rapid detection of SARS-CoV-2. Negative [...] management. Performed By: #### 3 1919 #### [address] PORTABLE CHEST 1 VIEWon 10-23 PORTABLE CHEST 1 VIEW [facility] Department of Radiology [address] [place] [id number] Patient Name: NAZARIO CORTES : 1955 Sex: M Age: Race: White Pt. Location: [facility] Patient Status: E Ordered Date: 11/20/2020 11:20:00 [...] Approved by:Jessenia Arceo11/20/2020 11:52 AM. I, Dhaval Ghotra,have reviewed the images and reports Electronically signed: Dhaval Ghotra. Transcribed by: [email or web address], User Resident: JESSENIA ALFORD Electronically Signed by: DHAVAL GHOTRA @ 11/20/2020 12:32 PM I personally read this/these film(s) with this resident Normal [facility] Comment on above: Order Comment: evalu ate for Pneumonia PROTHROMBIN TIMEon 0 INR Coag (PPP) [Relative time] 0.95 {INR} Normal 0.91-1.16 [facility] Comment on above: Result Comment: ACCC [...] RANGE. CHEST 1995;108:[id number]. Performed By: #### 5 0967, 49041 ####[facility] [place] [address], [facility] PT Coag (PPP) [Time] 12.7 s Normal 12.3-14.8 [facility] Comment on above: Result Comment: ALL RESULTS MUST BE INTERPRETED WITH RESPECT TO BLOOD DRAWING ARTIFACT OR DILUTION ERROR OF ANTICOAGULANT AT THE TIME OF SAMPLING. Performed By: #### 5 6101, 42973 ####[facility] [address] TROPONIN-Ion 11-20-2020 Troponin I.cardiac [Mass/Vol] 0.00 ng/mL Normal 0.00-0.04 [facility] Comment on above: Order Comment: No: D o not add to previous draw Result Comment: REFE RENCE RANGES: 0.00 - 0.14 ng/ml NEGATIVE 0.15 - 0.25 ng/ml INDETERMINATE > 0.25 ng/ml INDICATIVE OF AN M.I. Performed By: #### 3 5200 #### [facility] [address] Troponin I.cardiac [Mass/Vol] 0.00 ng/mL Normal 0.00-0.04 [facility] Comment on above: Result Comment: REFE RENCE RANGES: 0.00 - 0.14 ng/ml NEGATIVE 0.15 - 0.25 ng/ml INDETERMINATE > 0.25 ng/ml INDICATIVE OF AN M.I. Performed By: #### 0 0121, 20685, 85180, 00124 #### [facility] [address] Vital Signs Date Time Vital Sign Value Performing Clinician Facility 10-25-2024 15:32-0500 Body height 185.4 cm Jignesh Gonsalez MD Work Phone: [facility] 10-25-2024 15:32-0500 Body mass index (BMI) [Ratio] 40.9 kg/m2 Jignesh Gonsalez MD Work Phone: [facility] 10-25-2024 15:32-0500 Body temperature 97.5 [degF] Jignesh Gonsalez MD Work Phone: [facility] 10-25-2024 15:32-0500 Body weight 140.62 kg Jignesh Gonsalez MD Work Phone: [facility] 10-25-2024 15:32-0500 Diastolic blood pressure 70 mm[Hg] Jignesh Gonsalez MD Work Phone: [facility] 10-25-2024 15:32-0500 Heart rate 87 /min Jignesh Gonsalez MD Work Phone: [facility] 10-25-2024 15:32-0500 Respiratory rate 22 /min Jignesh Gonsalez MD Work Phone: [facility] 10-25-2024 15:32-0500 SaO2% (BldA) [Mass fraction] 90 % Jignesh Gonsalez MD Work Phone: [facility] 10-25-2024 15:32-0500 Systolic blood pressure 150 mm[Hg] Jignesh Gonsalez MD Work Phone: [facility] 09-07-2024 14:54-0400 Body height 185.42 cm MD Jignesh Gonsalez Work Phone: [facility] 09-07-2024 14:54-0400 Body mass index (BMI) [Ratio] 39.2 kg/m2 MD Jignesh Gonsalez Work Phone: [facility] 09-07-2024 14:54-0400 Body temperature 96.8 [degF] MD Jignesh Gonsalez Work Phone: [facility] 09-07-2024 14:54-0400 Body weight 134.94 kg MD Jignesh Gonsalez Work Phone: [facility] 09-07-2024 14:54-0400 Diastolic blood pressure 78 mm[Hg] MD Jignesh Gonsalez Work Phone: [facility] 09-07-2024 14:54-0400 Heart rate 93 /min MD Jignesh Gonsalez Work Phone: [facility] 09-07-2024 14:54-0400 Respiratory rate 20 /min MD Jignesh Gonsalez Work Phone: [facility] 09-07-2024 14:54-0400 SaO2% (BldA) [Mass fraction] 94 % MD Jignesh Gonsalez Work Phone: [facility] 09-07-2024 14:54-0400 Systolic blood pressure 119 mm[Hg] MD Jignesh Gonsalez Work Phone: [facility] 08-16-2024 10:34-0400 Body height 185.42 cm [facility] 08-16-2024 10:34-0400 Body mass index (BMI) [Ratio] 39 kg/m2 [facility] 08-16-2024 10:34-0400 Body temperature 96.8 [degF] [facility] 08-16-2024 10:34-0400 Body weight 134.26 kg [facility] 08-16-2024 10:34-0400 Diastolic blood pressure 77 mm[Hg] [facility] 08-16-2024 10:34-0400 Heart rate 73 /min [facility] 08-16-2024 10:34-0400 Respiratory rate 18 /min [facility] 08-16-2024 10:34-0400 SaO2% (BldA) [Mass fraction] 96 % [facility] 08-16-2024 10:34-0400 Systolic blood pressure 125 mm[Hg] [facility] 08-09-2024 13:10-0400 Body height 185.42 cm MD Jignesh Gonsalez Work Phone: [facility] 08-09-2024 13:10-0400 Body mass index (BMI) [Ratio] 39 kg/m2 MD Jignesh Gonsalez Work Phone: [facility] 08-09-2024 13:10-0400 Body temperature 98.5 [degF] MD Jignesh Gonsalez Work Phone: [facility] 08-09-2024 13:10-0400 Body weight 134.26 kg MD Jignesh Gonsalez Work Phone: [facility] 08-09-2024 13:10-0400 Diastolic blood pressure 64 mm[Hg] MD Jignesh Gonsalez Work Phone: [facility] 08-09-2024 13:10-0400 Heart rate 75 /min MD Jignesh Gonsalez Work Phone: [facility] 08-09-2024 13:10-0400 Respiratory rate 18 /min MD Jignesh Gonsalez Work Phone: [facility] 08-09-2024 13:10-0400 SaO2% (BldA) [Mass fraction] 93 % MD Jignesh Gonsalez Work Phone: [facility] 08-09-2024 13:10-0400 Systolic blood pressure 98 mm[Hg] MD Jignesh Gonsalez Work Phone: [facility] 05-15-2024 15:36-0400 Body height 185.42 cm MD Jignesh Gonsalez Work Phone: [facility] 05-15-2024 15:36-0400 Body mass index (BMI) [Ratio] 36.9 kg/m2 MD Jignesh Gonsalez Work Phone: [facility] 05-15-2024 15:36-0400 Body temperature 97.5 [degF] MD Jignesh Gonsalez Work Phone: [facility] 05-15-2024 15:36-0400 Body weight 127 kg MD Jignesh Gonsalez Work Phone: [facility] 05-15-2024 15:36-0400 Diastolic blood pressure 74 mm[Hg] MD Jignesh Gonsalez Work Phone: [facility] 05-15-2024 15:36-0400 Heart rate 81 /min MD Jignesh Gonsalez Work Phone: [facility] 05-15-2024 15:36-0400 Respiratory rate 18 /min MD Jignesh Gonsalez Work Phone: [facility] 05-15-2024 15:36-0400 SaO2% (BldA) [Mass fraction] 93 % MD Jignesh Gonsalez Work Phone: [facility] 05-15-2024 15:36-0400 Systolic blood pressure 119 mm[Hg] MD Jignesh Gonsalez Work Phone: [facility] 04-23-2024 13:06-0400 Body height 185.42 cm [facility] 04-23-2024 13:06-0400 Body mass index (BMI) [Ratio] 36.9 kg/m2 [facility] 04-23-2024 13:06-0400 Body temperature 97.3 [degF] [facility] 04-23-2024 13:06-0400 Body weight 127 kg [facility] 04-23-2024 13:06-0400 Diastolic blood pressure 56 mm[Hg] [facility] 04-23-2024 13:06-0400 Heart rate 80 /min [facility] 04-23-2024 13:06-0400 Respiratory rate 18 /min [facility] 04-23-2024 13:06-0400 SaO2% (BldA) [Mass fraction] 97 % [facility] 04-23-2024 13:06-0400 Systolic blood pressure 106 mm[Hg] [facility] 07-05-2023 10:00-0400 Body height 185.42 cm Luiz Riggs Other [facility] Other 07-05-2023 10:00-0400 Body mass index (BMI) [Ratio] 37.86 kg/m2 Luiz Riggs Other [facility] Other 07-05-2023 10:00-0400 Body weight 130.18 kg Luiz Riggs Other [facility] Other 07-05-2023 10:00-0400 Diastolic blood pressure 76 mm[Hg] Luiz Riggs Other [facility] Other 07-05-2023 10:00-0400 Systolic blood pressure 126 mm[Hg] Luiz Riggs Other [facility] Other 04-06-2022 17:40-0400 Body height 185.42 cm Neelam Blackburnmond Other [facility] Other 04-06-2022 17:40-0400 Body mass index (BMI) [Ratio] 36.15 kg/m2 Neelam Alexandra Other [facility] Other 04-06-2022 17:40-0400 Body temperature 98 [degF] Neelam Alexandra Other [facility] Other 04-06-2022 17:40-0400 Body weight 124.29 kg Neelam Alexandra Other [facility] Other 04-06-2022 17:40-0400 Diastolic blood pressure 69 mm[Hg] Neelam Alexandra Other [facility] Other 04-06-2022 17:40-0400 Respiratory rate 18 /min Neelam Alexandra Other [facility] Other 04-06-2022 17:40-0400 SaO2% (BldA) [Mass fraction] 95 % Neelam Alexandra Other [facility] Other 04-06-2022 17:40-0400 Systolic blood pressure 123 mm[Hg] Neelam Alexandra Other [facility] Other 12-28-2021 17:00-0500 Body height 185.42 cm Alex Bonilla Other [facility] Other 12-28-2021 17:00-0500 Body mass index (BMI) [Ratio] 37.47 kg/m2 Alex Bonilla Other [facility] Other 12-28-2021 17:00-0500 Body weight 128.82 kg Alex Bonilla Other [facility] Other Encounters Encounter Date Encounter Type Care Provider Facility Start: 11-06-2024 End: 11-06-2024 Telephone encounter Imelda ALANIS Work Phone: [facility] Start: 10-30-2024 End: 10-30-2024 Clinical Support Chari Vela CCC-A Work Phone: [facility] Comment on above: Sensorineural hearin g loss, bilateral (Primary Dx) Start: 10-30-2024 End: 10-30-2024 Bamboo flowsheet Chari Vela CCC-A Work Phone: [facility] Start: 10-30-2024 End: 10-30-2024 Bamboo flowsheet Chari Vela CCC-A Work Phone: [facility] Start: 10-25-2024 End: 10-25-2024 Office outpatient visit 25 minutes Jignesh Gonsalez MD Work Phone: [facility] Comment on above: Chronic pain of righ t knee (Primary Dx); Internal derangement of right knee; Chronic rhinosinusitis; Degenerative lumbar spinal stenosis; Colon cancer screening Start: 10-25-2024 End: 10-25-2024 ambulatory JIGNESH GONSALEZ Not Available Start: 10-25-2024 End: 10-25-2024 Bamboo flowsheet Jignesh Gonsalez MD Work Phone: [facility] Start: 10-25-2024 End: 10-25-2024 Bamboo flowsheet Jignesh Gonsalez MD Work Phone: [facility] Start: 10-24-2024 End: 10-24-2024 Refill Jignesh Gonsalez MD Work Phone: [facility] Comment on above: Major depressive dis order, recurrent episode, mild (HCC) (CMS/HCC) Start: 10-17-2024 End: 10-17-2024 ambulatory Yancy Srivastavab Facility:[facility] Start: 10-11-2024 End: 10-11-2024 Refill Jignesh Gonsalez MD Work Phone: [facility] Comment on above: Degenerative lumbar spinal stenosis Start: 09-25-2024 End: 09-25-2024 Refill Jignesh Gonsalez MD Work Phone: [facility] Comment on above: Seizure disorder (CM S/HCC) Start: 09-07-2024 End: 09-07-2024 ambulatory MD Jignesh Gonsalez Work Phone: [facility] Work Phone: Start: 09-07-2024 End: 09-07-2024 Patient encounter procedure MD Jignesh Gonsalez Work Phone: [facility] Work Phone: Start: 08-16-2024 End: 08-16-[address] [facility] Work Phone: Start: 08-16-2024 End: 08-16-2024 Patient encounter procedure [facility] Work Phone: Start: 08-09-2024 End: 08-09-2024 ambulatory MD Jignesh Gonsalez Work Phone: [facility] Work Phone: Start: 08-09-2024 End: 08-09-2024 Patient encounter procedure MD Jignesh Gonsalez Work Phone: [facility] Work Phone: Start: 08-08-2024 ambulatory [facility] Start: 07-26-2024 End: 07-26-2024 ambulatory [facility] Start: 07-18-2024 End: 07-18-2024 Reflubna Gonsalez MD Work Phone: [facility] Comment on above: Seizure disorder (CM S/HCC) Start: 06-13-2024 End: 06-13-2024 ambulatory IMELDA THOMPSON Not Available Start: 05-21-2024 End: 05-21-2024 ambulatory JIGNESH GONSALEZ Not Available Start: 05-16-2024 End: 05-16-2024 ambulatory IMELDA THOMPSON Not Available Start: 05-15-2024 End: 05-15-2024 ambulatory MD Jignesh Gonsalez Work Phone: [facility] Work Phone: Start: 05-15-2024 End: 05-15-2024 Patient encounter procedure MD Jignesh Gonsalez Work Phone: [facility] Work Phone: Start: 04-23-2024 End: 04-23-[address] [facility] Work Phone: Start: 04-23-2024 End: 04-23-2024 Patient encounter procedure [facility] Work Phone: Start: 04-17-2024 End: 04-17-2024 ambulatory CORNELIO COTTER Not Available Start: 03-07-2024 End: 03-07-2024 ambulatory JIGNESH GONSALEZ Not Available Start: 02-21-2024 End: 02-21-2024 ambulatory JIGNEHS GONSALEZ Not Available Start: 01-11-2024 End: 01-11-2024 ambulatory SHAIKH TIESHA Not Available Start: 01-05-2024 End: 01-05-2024 ambulatory [facility] Start: 01-05-2024 End: 01-05-2024 ambulatory [facility] Start: 12-30-2023 ambulatory Chris CAMARILLO Facili ty:[facility] Start: 12-21-2023 Telephone encounter Epifanio dennison MD [facility] Start: 12-20-2023 ambulatory [facility] Start: 12-19-2023 End: 12-19-2023 ambulatory [facility] Start: 12-15-2023 End: 12-15-2023 ambulatory JIGNESH GONSALEZ Not Available Start: 12-07-2023 End: 12-07-2023 ambulatory JIGNESH GONSALEZ Not Available Start: 11-29-2023 End: 11-29-2023 ambulatory JIGNESH GONSALEZ Not Available Start: 07-18-2023 End: 07-19-2023 ambulatory JIGNESH GONSALEZ Facility:[facility] Start: 07-18-2023 End: 07-18-2023 Patient encounter procedure Chris CAMARILLO [facility] Start: 07-05-2023 Office outpatient ne w 30 minutes Luiz Riggs [facility] Start: 07-05-2023 End: 07-05-2023 ambulatory MD Jignesh Gonsalez Work Phone: [facility] Work Phone: Start: 07-05-2023 End: 07-05-2023 Patient encounter procedure MD Jignesh Gonsalez Work Phone: [facility] Work Phone: Start: 01-07-2023 End: 01-08-[address] JIGNESH GONSALEZ Facility:[facility] Start: 12-24-2022 End: 12-24-[address] JIGNESH GONSALEZ Facility:[facility] Start: 11-04-2022 End: 12-15-[address] JIGNESH GONSALEZ Facility:[facility] Start: 09-29-2022 End: 09-30-[address] JIGNESH GONSALEZ Facility:[facility] Start: 08-27-[address] JOSE MCCLOUD Fac ility:[facility] Start: 08-23-2022 End: 08-23-[address] PORTER SCOTT . Facility:[facility] Start: 06-12-2022 End: 06-12-[address] JOSE MCCLOUD Facility:[facility] Start: 04-06-2022 End: 04-06-2022 ambulatory Neelam Morris Other [facility] Other Start: 04-06-2022 Office outpatient vi sit 15 minutes Neelam Morris [facility] Start: 12-28-2021 End: 12-28-2021 ambulatory Alex Bonilla Other [facility] Other Start: 12-28-2021 Office outpatient ne w 30 minutes Alex Bonilla [facility] Start: 11-20-2020 End: 11-20-2020 Emergency department patient visit KARINA JAY Facility:[facility] Procedures Date Procedure Procedure Detail Performing Clinician Start: 09-07-2024 X-ray of right knee, four views MD Jignesh Gonsalez Work Phone: Start: 05-15-2024 Plain X-ray of left elbow MD Jignesh Gonsalez Work Phone: Start: 07-05-2023 X-ray of lumbar spin e, six views including bending views MD Jignesh Gonsalez Work Phone: Start: 09-29-[address] JOSE MCCLOUD Comment on above: Performed By: #### P [facility] #### [facility] [address] [place] [address] Dr. Jeimy Tenorio Extraction of cataract Patri luis antonio CAMARILLO Procedure on foot Chris MERINO Plan of Treatment Date Care Activity Detail Author Start: 11-26-2024 End: 11-26-2024 Patient encounter procedure 11/26/2024 2:00 PM EST Office Visit [facility] [address] [place] [id number] Esteban Sprague DO [address] [place] [id number] [facility] Start: 11-22-2024 End: 11-22-2024 Patient encounter procedure [facility] Start: 10-25-2024 End: 10-25-2024 [facility] Comment on above: Arrived Start: 10-25-2024 End: 10-25-2025 CT Maxillofacial region WO and W contrast IV CT SINUS WO IV CONTRAST Imaging Routine Chronic rhinosinusitis Expected: 10/25/2024, Expires: 10/25/2025 [facility] Phone: Comment on above: Expected: 10/25/2024 , Expires: 10/25/2025 Start: 09-27-2024 End: 09-27-2024 Patient encounter procedure 09/27/2024 3:30 PM EST Office Visit [facility] [address] [place] [address] Jignesh Gonsalez MD [address] [place] [address] [facility] Start: 07-22-2024 Influenza vaccination Influenza Vacc ine (#1) [facility] Start: 12-30-2023 COVID-19 Vaccine ( season) COVID-19 Vaccine ( season) [facility] Start: 08-16-2023 Adult BMI Screening Adult BMI Screen ing [facility] Start: 08-16-2023 Fall Risk Screening Fall Risk Screen ing [facility] Start: 08-16-2023 Tobacco Screening Tobacco Screening [facility] Start: 08-05-2021 Pneumococcal Vaccine : 65+ Years (2 of 2 - PCV) Pneumococcal Vaccine: 65+ Years (2 of 2 - PCV) [facility] Start: 1974 Administration of varicella zoster vaccine Zoster (Shingles) Vaccine (1 of 2) [facility] Start: 1974 DTaP,Tdap and Td Vaccines (1 - Tdap) DTaP,Tdap and Td Vaccines (1 - Tdap) [facility] Start: 1967 Depression Screening Depression Scre ening [facility] Start: 1955 Medicare Annual Well ness (AWV) Medicare Annual Wellness (AWV) [facility] Start: 1955 Medicare Annual Well ness Visit Medicare Annual Wellness Visit [facility] Start: 1955 Screening for malign ant neoplasm of colon [facility] MR Knee - right WO contrast MR knee right wo IV contrast Imaging Routine Chronic pain of right knee Internal derangement of right knee Ordered: 10/25/2024 [facility] Comment on above: Ordered: 10/25/2024 XR Knee - right 4 Views [facility] Immunizations Immunization Date Immunization Notes Care Provider Fa cili 10-11-2024 influenza virus vacc ine, unspecified formulation Jignesh Gonsalez MD Work Phone: [facility] 11-04-2023 Covid-19, Mrna, Lnp- s, Bivalent, Pf, 30mcg/0.3 ml Epifanio Kaufman MD Work Phone: [facility] 11-04-2023 Influenza, Seasonal, Quadrivalent, Adjuvanted Jignesh Gonsalez MD Work Phone: [facility] 11-04-2023 influenza virus vacc ine, unspecified formulation Jignesh Gonsalez MD Work Phone: [facility] 08-21-2022 influenza virus vacc ine, unspecified formulation Epifanio Kaufman MD Work Phone: [facility] 08-21-2022 Influenza, High-dose Seasonal, Quadrivalent, Preservative Free Jignesh Gonsalez MD Work Phone: [facility] 08-21-2022 SARS-COV-2 (COVID-19 ) Vaccine, Unspecified Epifanio Kaufman MD Work Phone: [facility] 08-06-2021 Influenza Vaccine, Quadrivalent, Adjuvanted Epifanio Kaufman MD Work Phone: [facility] 02-25-2021 COVID-19, mRNA, LNP- S, PF, 100mcg/0.5mL Dose Epifanio Kaufman MD Work Phone: [facility] 02-12-2021 COVID-19, mRNA, LNP- S, PF, 30mcg/0.3mL Dose Epifanio Kaufman MD Work Phone: [facility] 08-05-2020 influenza, injectabl e, quadrivalent, preservative free Epifanio Kaufman MD Work Phone: [facility] 08-05-2020 pneumococcal polysaccharide vaccine, 23 valent Epifanio Kaufman MD Work Phone: [facility] 09-03-2019 influenza, seasonal, injectable Epifanio Kaufman MD Work Phone: [facility] 08-24-2019 influenza, injectabl e, quadrivalent, preservative free Epifanio Kaufman MD Work Phone: [facility] Payers Date Payer Category Payer Self-pay [id number] [id number] 2023 Medicaid [id number] 2023 Medicaid [id number] 2022 Medicare [id number] 2021 Medicare [id number] 2021 Unknown [id number] 2021 Medicare [id number] 2020 Medicare [id number] 2019 Unknown [id number] 1959 Medicare [id number] 2. [id number] 1955 Unknown [id number] 2.16.8 40.1.345979.3.579.2.647 1955 Unknown [id number] 2.16.84 0.1.429981.3.579.2.593 1955 Unknown [id number] 2.16.84 0.1.040121.3.579.2.593 1955 Unknown [id number] 2.16.84 0.1.488269.3.579.2.593 1955 Unknown [id number] 2.16.84 0.1.417724.3.579.2.593 1955 Unknown [id number] 2.16.84 0.1.963911.3.579.2.593 1955 Unknown [id number] 2.16.84 0.1.931985.3.579.2.593 1955 Unknown [id number] 2.16.84 0.1.044485.3.579.2.593 1955 Unknown [id number] 2.16.8 40.1.646406.3.579.2.1286 1955 Unknown [id number] 2.16.8 40.1.474543.3.579.2.727 1955 Unknown [id number] 2.16.8 40.1.361151.3.579.2.727 1955 Unknown [id number] 2.16.84 0.1.290156.3.579.2.1259 1955 Unknown [id number] 2.16.84 0.1.414365.3.579.2.1259 1955 Unknown [id number] 2.16.84 0.1.970052.3.579.2.1259 1955 Unknown [id number] 2.16.84 0.1.090372.3.579.2.1259 1955 Unknown [id number] 2.16.84 0.1.756471.3.579.2.9 1955 Unknown [id number] 2.16.84 0.1.937847.3.579.2.1259 1955 Unknown [id number] 2.16.84 0.1.918626.3.579.2.9 1955 Unknown [id number] 2.16.84 0.1.250729.3.579.2.9 1955 Unknown [id number] 2.16.84 0.1.123894.3.579.2.9 1955 Unknown [id number] 2.16.84 0.1.781593.3.579.2.9 1955 Unknown [id number] 2.16.84 0.1.586777.3.579.2.9 1955 Unknown [id number] 2.16.84 0.1.179696.3.579.2.1259 1955 Unknown [id number] 2.16.84 0.1.816558.3.579.2.1259 Medicare [id number] Unknown [id number] 2.16.8 40.1.245961.3.579.2.531 Unknown [id number] 2.16.8 40.1.562151.3.579.2.531 Unknown [id number] 2.16.8 40.1.333628.3.579.2.531 Social History Date Type Detail Facility Start: 08-16-2022 End: 12-14-2023 Sex Assigned At [facility] Start: 1955 Sex Assigned At Male F [facility] Tobacco smoking status No Smoking Status [facility] Start: 01-29-2020 End: 01-11-2024 Tobacco smoking status MAIS Ex-smoker [facility] End: 04-18-1997 History of tobacco use Current smoker [facility] End: 04-18-1997 History of tobacco use Cigarette Smoker [facility] Start: 01-29-2020 End: 12-14-2023 Cigarettes smoked current (pack per day) - Reported 3 [facility] Start: 01-29-2020 End: 01-11-2024 Tobacco use and exposure Smokeless tobacco non-user [facility] Start: 08-16-2022 Alcohol intake Ex-drinker (finding) [facility] Childcare Unknown [facility] Start: 1955 Sex Assigned At Not on file P [facility] Start: 04-23-2024 Tobacco smoking status NHIS Never smoked tobacco (finding) [facility] Start: 05-21-2024 End: 10-25-2024 Alcoholic beverage intake Lifetime non-drinker (finding) [facility] Within the last year , have you been afraid of your partner or ex-partner? No [facility] Are you now , , , , never or living with a partner? [facility] How often to you hav e a drink containing alcohol? Never [facility] How hard is it for you to pay for the very basics like food, housing, medical care, and heating Not very hard [facility] Do you feel stress - tense, restless, nervous, or anxious, or unable to sleep at night because your mind is troubled all the time - these days [OSQ] Not at all [facility] (I/We) worried whether (my/our) food would run out before (I/we) got money to buy more. Never true [facility] NEGATED: Highlighted rowStart: LLUVIAF History of tobacco use Passive smoker [facility] Clinical Notes 11-21-2020 to 11-06-2024 Telephone Encounter - ANNABELLE Bueno - 11/06/2024 1:01 PM ESTTelephone Encounter - ANNABELLE Bueno - 11/06/2024 1:01 PM ESTTelephone Encounter - Mallory Knight - 11/06/2024 9:02 AM EST Note Date & Type Note Facility 11-06-2024 Telephone encounter Note Spoke to Janet, Chart was audited from 6/30/23 and needed my signature on the document.. added and faxed to [employer]. [facility] Work Phone: 11-06-2024 Miscellaneous Notes Spoke to Janet, Chart was audited from 05/20/23 and needed my signature on the document.. added and faxed to [employer]. Her name is Janet that called not Neetu. [facility] from [facility] called and left vm that she needs a return call. She stated she has called a few times and has not received a call back regarding this patient. I tried to call back and it just kept ringing. Please call her back at [phone]. documented in this encounter [facility] 11-06-2024 Telephone encounter Note Her name is Janet that called not [facility]et[facility]. [facility] 11-06-2024 Telephone encounter Note Neetu from [facility] called and left vm that she needs a return call. She stated she has called a few times and has not received a call back regarding this patient. I tried to call back and it just kept ringing. Please call her back at [phone]. [facility] 10-30-2024 History of Presen t illness Narrative Pt picked up supplies documented in this encounter [facility] 10-25-2024 History of Presen t illness Narrative Associated Problem(s): Internal derangement of right knee Increased pain after fall and very unsteady. X-ray with mild degenerative changes. Pain getting worse and likely with meniscal injury. Check MRI knee and will need to see ortho. Start prednisone. Use norco PRN. Ice PRN. Associated Problem(s): Degenerative lumbar spinal stenosis Pain stable and use norco PRN. Use robaxin for spasms. Continue PT exercises. Associated Problem(s): Chronic rhinosinusitis Continued congestion and nose plugged. Start flonase and check CT sinuses. Associated Problem(s): Chronic pain of right knee Increased pain after fall and very unsteady. X-ray with mild degenerative changes. Pain getting worse and likely with meniscal injury. Check MRI knee and will need to see ortho. Start prednisone. Use norco PRN. Ice PRN. Images from the original note were not included. Subjective Patient ID: Nathan Cortes is a 69 y.o. male who presents for Follow-up (Knee pain, dizziness, ). C/o worsening knee pain over the past few weeks. Patient very unstable and has fallen several times. Recently fell at home landing on right knee. Severe pain on outer knee initially and now pain on inside of knee. Pain with walking and standing. Tender lump on inside knee and knee swollen. Occasional popping and clicking but very unsteady and gives out. Not able to go up or down stairs well. To ER and X-ray showed degenerative changes. Not tried ice. C/o chronic sinus problems. Symptoms for years and nose always plugged. Increased congestion and occasional rhinorrhea. Sinus pressure in forehead and cheeks along with postnasal drip. Ears plugged and popping. Not on medication. Concerned of deviated septum. Review of Systems Constitutional: Negative for fatigue. Respiratory: Negative for cough, shortness of breath and wheezing. Cardiovascular: Negative for chest pain and palpitations. Gastrointestinal: Negative for abdominal pain, diarrhea, nausea and vomiting. Genitourinary: Negative for dysuria. Objective Physical Exam Constitutional: General: He is not in acute distress. Appearance: Normal appearance. HENT: Head: Normocephalic. Right Ear: Tympanic membrane and ear canal normal. Left Ear: Tympanic membrane and ear canal normal. Eyes: Extraocular Movements: Extraocular movements intact. Pupils: Pupils are equal, round, and reactive to light. Cardiovascular: Rate and Rhythm: Normal rate and regular rhythm. Heart sounds: No murmur heard. No friction rub. No gallop. Pulmonary: Breath sounds: Normal breath sounds. No wheezing, rhonchi or rales. Abdominal: General: Bowel sounds are normal. There is no distension. Palpations: Abdomen is soft. Tenderness: There is no abdominal tenderness. There is no guarding or rebound. Musculoskeletal: Left lower leg: No edema. Neurological: Mental Status: He is alert. Assessment/Plan Problem List Items Addressed This Visit Degenerative lumbar spinal stenosis Pain stable and use norco PRN. Use robaxin for spasms. Continue PT exercises. Relevant Medications HYDROcodone-acetaminophen (Atkins) 5-325 MG tablet Chronic rhinosinusitis Continued congestion and nose plugged. Start flonase and check CT sinuses. Relevant Medications fluticasone (Flonase) 50 MCG/ACT nasal spray Other Relevant Orders CT SINUS WO IV CONTRAST Internal derangement of right knee Increased pain after fall and very unsteady. X-ray with mild degenerative changes. Pain getting worse and likely with meniscal injury. Check MRI knee and will need to see ortho. Start prednisone. Use norco PRN. Ice PRN. Relevant Orders MR knee right wo IV contrast Chronic pain of right knee - Primary Increased pain after fall and very unsteady. X-ray with mild degenerative changes. Pain getting worse and likely with meniscal injury. Check MRI knee and will need to see ortho. Start prednisone. Use norco PRN. Ice PRN. Relevant Medications predniSONE (Deltasone) 50 MG tablet Other Relevant Orders MR knee right wo IV contrast Other Visit Diagnoses Colon cancer screening Relevant Orders Ambulatory referral to General Surgery documented in this encounter [facility] 08-08-2024 Note SUBJECTIVE: Chief complaint: Back pain. History of present illness: Return visit for back pain. Patient reports back and [...] his bilateral calves and feet. He was continues to have a left foot drop and wears an AFO brace. He denies bowel incontinence, though he notes that he wears adult briefs at nighttime for some nocturnal urinary incontinence. Has tried Tylenol and NSAIDs without lasting or substantial relief. He has seen pain management in the past, about 6 or 7 years ago, in [facility] and had injections, which he states he has made his symptoms worse. Not interested in pursuing additional injections. 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 He has done physical therapy for his back previously, though did not notice any substantial improvement. Has not had previous back surgery. Does report chronic neck pain as well as pain into his left shoulder, though states the symptoms are less bothersome than his back. No variation in symptoms with time of [...] despite the use of a rolling walker. Not clear when this started, though states [...] having at that time. Review of systems: As in HPI. Past Medical History: Diagnosis Date Bladder cancer ([facility]) around 1997 Cholelithiasis Colon polyp Depression Dyslipidemia Hearing loss Left foot drop Peripheral neuropathy Seizure disorder ([facility]) TIA (transient ischemic attack) Past Surgical History: Procedure Laterality Date ANTERIOR CERVICAL DISCECTOMY W/ FUSION C5-C7 CARDIAC CATHETERIZATION CARPAL TUNNEL RELEASE Bilateral CATARACT EXTRACTION, BILATERAL CHEST WALL BIOPSY thoracoscopy wedge resection of lung CHOLECYSTECTOMY COLONOSCOPY CTA HEAD W IV CONTRAST 11/20/2020 CT HEAD ANGIO W AND WO IV CONTRAST PANDYA CONVERSION CTA NECK W IV CONTRAST 11/20/2020 CT NECK ANGIO W AND WO IV CONTRAST PANDYA CONVERSION FOOT SURGERY Achilles LYMPH NODE DISSECTION POSTERIOR CERVICAL LAMINECTOMY PCDF C3-C5 SHOULDER SURGERY Social History Tobacco Use Smoking status: Former Types: Cigarettes Quit date: 04/18/1997 Years since quittin.3 Smokeless tobacco: Never Substance Use Topics Alcohol use: Not Currently Drug use: Never Family History Problem Relation Name Age of Onset Supraventricular tachycardia Mother Stroke Father Kidney cancer Sister Diabetes Sister COPD Brother OBJECTIVE: Medications: aspirin atorvastatin citalopram cyanocobalamin (vitamin B-12) capsule furosemide HYDROcodone-acetaminophen meclizine methocarbamol Multivitamin 50 Plus tablet nitroglycerin PHENobarbital phenytoin ER potassium chloride CR vitamin B complex Current Outpatient Medications: aspirin 81 mg EC tablet, Take 1 tablet by mouth in the morning., Disp: , Rfl: atorvastatin (Lipitor) 10 mg tablet, Take 10 mg by mouth at bedtime., Disp: , Rfl: citalopram (CeleXA) 40 mg tablet, , Disp: , Rfl: cyanocobalamin, vitamin B-12, 5,000 mcg capsule, in the morning., Disp: , Rfl: furosemide (Lasix) 40 mg tablet, Take 40 mg by mouth if needed each day., Disp: , Rfl: HYDROcodone-acetaminophen (Atkins) 5-325 mg tablet, take 1 tablet by mouth four times a day if needed for severe pain for up to 7 days, Disp: , Rfl: meclizine (Antivert) 25 mg tablet, take 1 tablet by mouth four times a day if needed for dizziness, (more content not included)... [facility] 01-05-2024 Note SUBJECTIVE: Chief complaint: Back pain. [...] about 6 or 7 years ago, in [facility] and had injections. He states he has made his symptoms worse. 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 [facility] 12-21-2023 Miscellaneous Notes Received faxed referral for patient to be seen for Lumbar. Called and spoke to patient, stated he has an appointment set up already at [facility] office. documented in this encounter [employer] 12-21-2023 Telephone encounter Note Received faxed referral for patient to be seen for Lumbar. Called and spoke to patient, stated he has an appointment set up already at [facility] office[facility] Evaluation note Encounter Date Diagnosis Assessment [...] fusion of cervical spine (ICD-10 - Z98.1) [facility] Other 06-09-2023 Hospital Discharge instructions Follow Up Care 04/29/2023 15:31:28 With:RABIA GAN, Chris Brizuela, URL Address: [facility] [address], [place] [address]- [phone] When: Unknown [facility] 11-10-2022 NotePROCEDURE: XR FOOT RT MIN 3 [...] Electronically authenticated by: KELL BLANDON Date: 2022-09-30 08:07 [id number] NotePROCEDURE: XR KNEE LT 4V or >, [...] authenticated by: TRINIDAD BEAVER Date: 2022-08-23 14:20[id number] NotePROCEDURE: XR KNEE LT 4V or >, [...] Electronically authenticated by: TRINIDAD BEAVER Date: 2022-08-23 14:[facility]10-03-2022 NotePROCEDURE: XR KNEE LT 4V or >, [...] Electronically authenticated by: TRINIDAD BEAVER Date: 2022-08-23 14:[facility]05-17-2022 Evaluation note* Encounter Date Diagnosis Assessment Notes Treatment Notes Treatment Clinical Notes March, Bilateral impacted cerumen (ICD-10 - H61.23) Avoid using Q-tips or earplugs. Keep your ears clean and dry. Follow-up with your family physician for any further concerns. [facility] Other 02-07-2022 Evaluation note* Encounter Date Diagnosis [...] contact us for further management as needed. [facility] Other 01-01-2021 NoteMR#: [id number] E [facility] Pt. Name: Nazario Cortes Admitted: 11/20/2020 Discharged: 11/20/2020 Date of : 1955 Physician: Trinidad Hamilton MD DISCHARGE SUMMARY PRIMARY CARE PHYSICIAN: Jose Mccloud M.D. PRINCIPAL PROBLEM: Chest pain, rule out acute coronary syndrome. SECONDARY DIAGNOSES: 1. Left thyroid lobe nodule. 2. History of transient ischemic attack. 3. Essential hypertension. 4. Epilepsy. 5. Coronary artery disease. 6. Former tobacco use. 7. Germ cell lung cancer. CONSULTANTS: Cardiology. HOSPITAL COURSE: This is a 65-year-old male with a past medical history of coronary artery disease, followed by [facility] Cardiology Clinic that presents to the [facility] Emergency Department with complaints of [...] to follow up with his PCP and director strategic account management. Total time of discharge was 45 minutes. Electronically Signed by: Trinidad Hamilton MD 11/21/2020 08:00 A Trinidad Hamilton MD .. Date Dict: 11/20/2020/06:21 P/Loida Ashley CNP Date Trans: 11/21/2020 12:04 A/shabbir [id number] cc: Jose Mccloud M.D. [address] [place] [address] Future Appointments Appointment Date:08/19/2023 10:30:00 AM Scheduled Provider:Chris CAMARILLO MD Location:[facility] Appointment Type:URO New Patient [facility] evaluation noteNo assessment information available [facility] Work Phone: Evaluation note* Diagnosis Onset Date Resolution Status Impacted cerumen of both ears acute [facility] Work Phone: Evaluation note* Diagnosis Onset Date Resolution Status Impacted cerumen of both ears acute Left elbow pain acute [facility] Work Phone: Evaluation note* Diagnosis Onset Date Resolution Status Left elbow pain acute Impacted cerumen of both ears acute [facility] Work Phone: Evaluation note* Diagnosis Onset Date Resolution Status Impacted cerumen of both ears acute Allergic rhinitis noneactive [facility] Work Phone: Evaluation note* Diagnosis Major depressive disorder, recurrent episode, mild (HCC) (CMS/HCC)- Primary Major depressive disorder, recurrent episode, mild Degenerative lumbar spinal stenosis Spinal stenosis of lumbar region Dyslipidemia (CMS/HCC) Other and unspecified hyperlipidemia Class 2 obesity in adult, unspecified BMI, unspecified obesity type, unspecified whether serious comorbidity present Screening PSA (prostate specific antigen) Special screening for malignant neoplasm of prostate Encounter for long-term current use of medication 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- Primary Spinal stenosis of lumbar region 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) Coronary arteriosclerosis (CMS/HCC)- Primary Coronary atherosclerosis of unspecified type of vessel, douglas or graft Chest pain due to CAD (CMS/HCC) Major depressive disorder, recurrent episode, mild (HCC) (CMS/HCC) Major depressive disorder, recurrent episode, mild Hospital discharge follow-up Other follow-up examination Major depressive disorder, recurrent episode, mild (HCC) (CMS/HCC)- Primary Major depressive disorder, recurrent episode, mild Degenerative lumbar spinal stenosis Spinal stenosis of lumbar region Bilateral leg edema Edema Closed fracture of multiple ribs of right side with routine healing KAROL (obstructive sleep apnea) Obstructive sleep apnea (adult) (pediatric) 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) Malignant neoplasm of urinary bladder, unspecified site (CMS/HCC) Major depressive disorder, recurrent episode, mild (HCC) (CMS/HCC)- Primary Major depressive disorder, recurrent episode, mild 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 Spinal stenosis of lumbar region Bilateral leg edema Edema KAROL (obstructive sleep apnea) Obstructive sleep apnea (adult) (pediatric) Morbid (severe) obesity due to excess calories (CMS/HCC) Hyperlipidemia, unspecified (CMS/HCC) Body mass index (BMI) 38.0-38.9, adult Seizure disorder (CMS/HCC) Unspecified epilepsy without mention of intractable epilepsy documented in this encounter [facility]* Diagnosis Major depressive disorder, recurrent episode, mild (HCC) (CMS/HCC)- Primary Major depressive disorder, recurrent episode, mild Degenerative lumbar spinal stenosis Spinal stenosis of lumbar region Dyslipidemia (CMS/HCC) Other and unspecified hyperlipidemia Class 2 obesity in adult, unspecified BMI, unspecified obesity type, unspecified whether serious comorbidity present Screening PSA (prostate specific antigen) Special screening for malignant neoplasm of prostate Encounter for long-term current use of medication 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- Primary Spinal stenosis of lumbar region 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) Coronary arteriosclerosis (CMS/HCC)- Primary Coronary atherosclerosis of unspecified type of vessel, douglas or graft Chest pain due to CAD (CMS/HCC) Major depressive disorder, recurrent episode, mild (HCC) (CMS/HCC) Major depressive disorder, recurrent episode, mild Hospital discharge follow-up Other follow-up examination Major depressive disorder, recurrent episode, mild (HCC) (CMS/HCC)- Primary Major depressive disorder, recurrent episode, mild Degenerative lumbar spinal stenosis Spinal stenosis of lumbar region Bilateral leg edema Edema Closed fracture of multiple ribs of right side with routine healing KAROL (obstructive sleep apnea) Obstructive sleep apnea (adult) (pediatric) 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) Malignant neoplasm of urinary bladder, unspecified site (CMS/HCC) Major depressive disorder, recurrent episode, mild (HCC) (CMS/HCC)- Primary Major depressive disorder, recurrent episode, mild 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 Spinal stenosis of lumbar region Bilateral leg edema Edema KAROL (obstructive sleep apnea) Obstructive sleep apnea (adult) (pediatric) Morbid (severe) obesity due to excess calories (CMS/HCC) Hyperlipidemia, unspecified (CMS/HCC) Body mass index (BMI) 38.0-38.9, adult Degenerative lumbar spinal stenosis Spinal stenosis of lumbar region documented in this encounter [facility] HealthcareEvaluation note* Diagnosis Major depressive disorder, recurrent episode, mild (HCC) (CMS/HCC)- Primary Major depressive disorder, recurrent episode, mild Degenerative lumbar spinal stenosis Spinal stenosis of lumbar region Dyslipidemia (CMS/HCC) Other and unspecified hyperlipidemia Class 2 obesity in adult, unspecified BMI, unspecified obesity type, unspecified whether serious comorbidity present Screening PSA (prostate specific antigen) Special screening for malignant neoplasm of prostate Encounter for long-term current use of medication 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- Primary Spinal stenosis of lumbar region 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) Coronary arteriosclerosis (CMS/HCC)- Primary Coronary atherosclerosis of unspecified type of vessel, douglas or graft Chest pain due to CAD (CMS/HCC) Major depressive disorder, recurrent episode, mild (HCC) (CMS/HCC) Major depressive disorder, recurrent episode, mild Hospital discharge follow-up Other follow-up examination Major depressive disorder, recurrent episode, mild (HCC) (CMS/HCC)- Primary Major depressive disorder, recurrent episode, mild Degenerative lumbar spinal stenosis Spinal stenosis of lumbar region Bilateral leg edema Edema Closed fracture of multiple ribs of right side with routine healing KAROL (obstructive sleep apnea) Obstructive sleep apnea (adult) (pediatric) 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) Malignant neoplasm of urinary bladder, unspecified site (CMS/HCC) Major depressive disorder, recurrent episode, mild (HCC) (CMS/HCC)- Primary Major depressive disorder, recurrent episode, mild 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 Spinal stenosis of lumbar region Bilateral leg edema Edema KAROL (obstructive sleep apnea) Obstructive sleep apnea (adult) (pediatric) Morbid (severe) obesity due to excess calories (CMS/HCC) Hyperlipidemia, unspecified (CMS/HCC) Body mass index (BMI) 38.0-38.9, adult Major depressive disorder, recurrent episode, mild (HCC) (CMS/HCC) Major depressive disorder, recurrent episode, mild documented in this encounter [facility] HealthcareEvaluation note* Diagnosis Major depressive disorder, recurrent episode, mild (HCC) (CMS/HCC)- Primary Major depressive disorder, recurrent episode, mild Degenerative lumbar spinal stenosis Spinal stenosis of lumbar region Dyslipidemia (CMS/HCC) Other and unspecified hyperlipidemia Class 2 obesity in adult, unspecified BMI, unspecified obesity type, unspecified whether serious comorbidity present Screening PSA (prostate specific antigen) Special screening for malignant neoplasm of prostate Encounter for long-term current use of medication 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- Primary Spinal stenosis of lumbar region 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) Coronary arteriosclerosis (CMS/HCC)- Primary Coronary atherosclerosis of unspecified type of vessel, douglas or graft Chest pain due to CAD (CMS/HCC) Major depressive disorder, recurrent episode, mild (HCC) (CMS/HCC) Major depressive disorder, recurrent episode, mild Hospital discharge follow-up Other follow-up examination Major depressive disorder, recurrent episode, mild (HCC) (CMS/HCC)- Primary Major depressive disorder, recurrent episode, mild Degenerative lumbar spinal stenosis Spinal stenosis of lumbar region Bilateral leg edema Edema Closed fracture of multiple ribs of right side with routine healing KAROL (obstructive sleep apnea) Obstructive sleep apnea (adult) (pediatric) 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) Malignant neoplasm of urinary bladder, unspecified site (CMS/HCC) Major depressive disorder, recurrent episode, mild (HCC) (CMS/HCC)- Primary Major depressive disorder, recurrent episode, mild 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 Spinal stenosis of lumbar region Bilateral leg edema Edema KAROL (obstructive sleep apnea) Obstructive sleep apnea (adult) (pediatric) Morbid (severe) obesity due to excess calories (CMS/HCC) Hyperlipidemia, unspecified (CMS/HCC) Body mass index (BMI) 38.0-38.9, adult Chronic pain of right knee- Primary Internal derangement of right knee Chronic rhinosinusitis Unspecified sinusitis (chronic) Degenerative lumbar spinal stenosis Spinal stenosis of lumbar region Colon cancer screening Special screening for malignant neoplasms, colon documented in this encounter [facility]* Diagnosis Major depressive disorder, recurrent episode, mild (HCC) (CMS/HCC)- Primary Major depressive disorder, recurrent episode, mild Degenerative lumbar spinal stenosis Spinal stenosis of lumbar region Dyslipidemia (CMS/HCC) Other and unspecified hyperlipidemia Class 2 obesity in adult, unspecified BMI, unspecified obesity type, unspecified whether serious comorbidity present Screening PSA (prostate specific antigen) Special screening for malignant neoplasm of prostate Encounter for long-term current use of medication 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- Primary Spinal stenosis of lumbar region 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) Coronary arteriosclerosis (CMS/HCC)- Primary Coronary atherosclerosis of unspecified type of vessel, douglas or graft Chest pain due to CAD (CMS/HCC) Major depressive disorder, recurrent episode, mild (HCC) (CMS/HCC) Major depressive disorder, recurrent episode, mild Hospital discharge follow-up Other follow-up examination Major depressive disorder, recurrent episode, mild (HCC) (CMS/HCC)- Primary Major depressive disorder, recurrent episode, mild Degenerative lumbar spinal stenosis Spinal stenosis of lumbar region Bilateral leg edema Edema Closed fracture of multiple ribs of right side with routine healing KAROL (obstructive sleep apnea) Obstructive sleep apnea (adult) (pediatric) 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) Malignant neoplasm of urinary bladder, unspecified site (CMS/HCC) Major depressive disorder, recurrent episode, mild (HCC) (CMS/HCC)- Primary Major depressive disorder, recurrent episode, mild 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 Spinal stenosis of lumbar region Bilateral leg edema Edema KAROL (obstructive sleep apnea) Obstructive sleep apnea (adult) (pediatric) Morbid (severe) obesity due to excess calories (CMS/HCC) Hyperlipidemia, unspecified (CMS/HCC) Body mass index (BMI) 38.0-38.9, adult Chronic pain of right knee- Primary Internal derangement of right knee Chronic rhinosinusitis Unspecified sinusitis (chronic) Degenerative lumbar spinal stenosis Spinal stenosis of lumbar region Colon cancer screening Special screening for malignant neoplasms, colon Sensorineural hearing loss, bilateral- Primary documented in this encounter [facility] HealthcareEvaluation note* Diagnosis Seizure disorder (CMS/HCC) Unspecified epilepsy without mention of intractable epilepsy documented in this encounter [facility] HealthcareHistory general Narrative - Reported* Type Description Date Medical History Seizure Disorder Medical History neuropathy Medical History HX of Bladder CA Medical History hypercholesterolemia Surgical History TUMOR REMOVED FROM BLADDER Surgical History RIGHT ACHILLES TENDON REPAIR Hospitalization History See Above [facility] Other History general Narrative - Reported* Type [...] Surgical History gallbladder Hospitalization History See Above [facility] Other Hospital course Narrative No data available for this section [facility] [place] InstructionsNot on filedocumented in this encounter [facility] No data available for this section [facility] [place] reason for visit NarrativeReferral Dr. 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 Chief Complaint right ear pain, bronson estion Reason for Visit Impacted cerumen of both ears Chief Complaint right ear pain, bronson estion left side arm/elbow pain w fall M25.522 - Pain in left elbow Reason for Visit Impacted cerumen of both ears Left elbow pain Chief Complaint left side arm/elbow pain w fall M25.522 - Pain in left elbow Ear popping Reason for Visit Left elbow pain Impacted cerumen of both ears Chief Complaint Ear popping Sore throat Reason for Visit Impacted cerumen of both ears Chief Complaint Ear popping Sore throat fall rt side rt knee pain Reason for Visit Impacted cerumen of both ears Allergic rhinitis Additional Source Comments (unrecognized sect ion and content) No Status Records FoundNo Status Records FoundNo Status Records FoundNo Status Records FoundNo Status Records FoundNo Status Records FoundNo Status Records FoundNo Status Records Found INFORMATION SOURCE (unrecogn ized section and content) DATE CREATED AUTHOR 08/29/2021 [facility] DATE CREATED AUTHOR AUTHOR'S ORGANIZ ATION 10/31/2021 [facility] DATE CREATED AUTHOR AUTHOR'S ORGANIZ ATION 01/13/2023 [facility] DATE CREATED AUTHOR AUTHOR'S ORGANIZ ATION 12/25/2023 [facility] DATE CREATED AUTHOR AUTHOR'S ORGANIZ ATION 12/29/2023 [facility] DATE CREATED AUTHOR AUTHOR'S ORGANIZ ATION 08/13/[address] [facility] DATE CREATED AUTHOR AUTHOR'S ORGANIZ ATION 10/20/2024 [facility] DATE CREATED AUTHOR AUTHOR'S ORGANIZ ATION 11/02/2024 [facility] EPIC REASON FOR VISIT (unrecogniz ed section and content) Reason Comments Med Refill Reason Onset Date Comments Med Refill 10/11/2024 Reason Onset Date Comments Med Refill 10/24/2024 Reason Comments Follow-up Knee pain, dizziness , Care Teams (unrecognized sec tion and content) Team Status: Active Member Role Status Dates Jignesh Gonsalez MD Primary Care Provider Active Team Status: Inactive Member Role Status Dates Luiz Riggs MD Attending Provider Active Jignesh Gonsalez MD Primary Care Provider Active Gate Technician Relationship Specialty Start Date End Date Jose Mccloud DO [address] [facility], [facility] [place] [address] PCP - General Family Medicine 11/17/23 Team [...] Attending Provider Active Start: May 15, 2024 Team Status: Inactive Member Role Status Dates Jignesh Gonsalez MD Primary Care Provider Active S tart: August 09, 2024 End: August 09, 2024 Joslyn Garcia APRN Attending Provider Active Start: August 09, 2024 End: August 09, 2024 Team Status: Inactive Member Role Status Dates Jignesh Gonsalez MD Primary Care Provider Active S tart: August 16, 2024 End: August 16, 2024 Bella Melton APRN Attending Provider Active Start: August 16, 2024 End: August 16, 2024 Team Status: Inactive Member Role Status Dates Jignesh Gonsalez MD Primary Care Provider Active S tart: September 07, 2024 End: September 07, 2024 Joslyn Garcia APRN Attending Provider Active Start: September 07, 2024 End: September 07, 2024 Team Status: Active Member Role Status Dates Jignesh Gonsalez MD Primary Care Provider Active S tart: September 07, 2024 Joslyn Garcia APRN Attending Provider Active Start: September 07, 2024 Gate Technician Relationship Specialty Start Date End Date Jignesh Gonsalez MD [address] [place] [phone] PCP - General Family Medicine 12/15/23 Gate Technician Relationship Specialty Start Date End Date Jignesh Gonsalez MD [address] [place] [phone] PCP - General Family Medicine 12/15/23 Gate Technician Relationship Specialty Start Date End Date Jignesh Gonsalez MD [address] [place] [phone] PCP - General Family Medicine 12/15/23 Gate Technician Relationship Specialty Start Date End Date Jignesh Gonsalez MD [address] [place] [phone] PCP - General Family Medicine 12/15/23 Gate Technician Relationship Specialty Start Date End Date Jignesh Gonsalez MD [address] [place] [phone] PCP - [facility] 12/15/23 Gate Technician Relationship Specialty Start Date End Date Jignesh Gonsalez MD [address] [place] [phone] PCP - [facility] 12/15/23 Gate Technician Relationship Specialty Start Date End Date Jignesh Gonsalez MD [address] [place] [phone] [facility] - [facility] 12/15/23 Goals (unrecognized section and content) Goals may [...] BE BASED ON THE PRIMARY CLINICAL RECORDS. [facility] [employer] [facility]. provides no warranty or guarantee of the accuracy or completeness of information in this document.
[2024-11-09 13:07] LABS: Bilirubin Urine NEGATIVE (NEGATIVE); Blood Urine TRACE-L (NEGATIVE); Clarity Urine CLEAR (CLEAR); Color Urine LT. YELLOW (YELLOW); Glucose Urine UA NEGATIVE (NEGATIVE); Ketones Urine NEGATIVE (NEGATIVE); Leukocyte Esterase Urine NEGATIVE (NEGATIVE); Nitrite Urine NEGATIVE (NEGATIVE); Protein Urine NEGATIVE (NEG/TRACE); Urine Microscopic Indicated YES; Urobilinogen Urine 0.2 EU/dL (0.2-1.0)
[2024-11-09 13:23] LABS: Bacteria Urine NONE SEEN #/HPF (NONE SEEN); Cast Seen? NONE SEEN #/LPF (NONE SEEN); Crystals Seen? None Seen #/HPF (None Seen); Mucus Urine NONE SEEN (NONE SEEN); Squamous Epithelial Cell Urine RARE #/LPF (NONE/RARE); Urine Culture Indicated NO; WBC Urine NONE SEEN #/HPF (NONE SEEN)
[2024-11-09] MEDS: KETOROLAC TROMETHAMINE 60 MG/2 ML VIAL IM (13:23)
--- NOTE | 2024-11-09 13:31 | ED.GENADUL1 ---
Documented by User: Mariana Mazariegos 11/09/24 14:45 HPI HPI - General Adult General Chief complaint: Extremity Injury, Lower Stated complaint: OTHER Time Seen by Provider: 11/09/24 13:08 Source: patient Mode of arrival: ambulance Limitations: no limitations History of Present Illness HPI narrative: 69-year-old male presents here with a chief complaint of exacerbation of chronic right knee pain. States the pain began earlier this morning. He has a history of chronic knee pain his primary care physician was to order him an MRI he has not had that done yet. He denies any other new injury or trauma at this time. There is no redness or swelling to the joint. He states he took a hydrocodone prior to arrival today did not help with his pain. He has Toradol in the past which has helped alleviate his symptoms. He has not seen an orthopod for this knee. Related Data Home Medications ?Medication ?Instructions ?Recorded ?Confirmed atorvastatin 10 mg tablet 10 mg PO .hs 05/12/23 05/24/24 citalopram 40 mg tablet 40 mg PO DAILY 05/12/23 05/24/24 meclizine 25 mg tablet 25 mg PO QID PRN dizziness 05/12/23 05/24/24 phenobarbital 32.4 mg tablet 32.4 mg PO Q12H 05/12/23 05/24/24 phenytoin sodium extended 100 mg 200 mg PO TID 05/12/23 05/24/24 capsule furosemide 40 mg tablet 40 mg PO DAILY PRN edema 05/24/24 05/24/24 nitroglycerin 0.3 mg sublingual 0.3 mg sublingual Q5M PRN chest 05/24/24 05/24/24 tablet pain potassium chloride 20 mEq 20 meq PO DAILY PRN hypokalemia 05/24/24 05/24/24 tablet,extended release Previous Rx's ?Medication ?Instructions ?Recorded hydrocodone 5 mg-acetaminophen 325 1 tab PO Q6H PRN pain 3 days #12 02/19/24 mg tablet tabs Allergies Allergy/AdvReac Type Severity Reaction Status Date / Time oxycodone (From OxyContin) Allergy Severe Anaphylaxis Verified 11/09/24 10:27 gabapentin Allergy Unknown Unknown Verified 11/09/24 10:27 phenytoin (From Dilantin) AdvReac Severe Dizziness Verified 11/09/24 10:27 Opioid HPI Opioid Management Most Recent Opioid Data: Last Pain Scale 6 11/09/24 10:28 11/09/24 Review of Systems ROS Narrative All Systems are negative except as noted/marked.All systems reviewed and otherwise negative PFSH PFSH Medical History (Updated 11/09/24 @ 13:30 by Mariana Mazariegos) CAD, multiple vessel ?I25.10 - Atherosclerotic heart disease of [place] coronary artery without angina pectoris (ICD-10) 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 - Malignant neoplasm of mediastinum, part unspecified (ICD-10) Bladder cancer ?C67.9 - Malignant neoplasm of bladder, unspecified (ICD-10) HLD (hyperlipidemia) ?E78.5 - Hyperlipidemia, unspecified (ICD-10) Chest pain ?R07.9 - Chest pain, unspecified (ICD-10) Family History (Updated 12/31/23 @ 12:13 by Shaikh Florentin MD) Father Family history of myocardial infarction Sister Family history of cancer Social History Smoking status: Former smoker Highest level of school completed/degree received: Associate degree: occupational, technical, vocational program Little interest or pleasure in doing things: not at all Feeling down, depressed, or hopeless: not at all Gender Identity: male Exam Narrative Exam Narrative: Nurses note and vital signs reviewed and patient is not hypoxic. General: The patient appears well and in no apparent distress. Patient is resting comfortably on cart. Skin: Warm, dry, no pallor noted. There is no rash noted. Head: Normocephalic, atraumatic Eye: Normal conjunctiva, no drainage, EOMI. PERRL Ears, Nose, Mouth, and Throat: oral mucosa is moist. Nares patent. Mouth without vesicles. Ear canals patent. Tm's without Erythema Cardiovascular: Regular Rate and Rhythm Respiratory: Patient is in no distress, no accessory muscle use, lungs are clear to auscultation, no wheezing, rales or rhonchi Back: non-tender, no CVA tenderness bilaterally to percussion. GI: Normal bowel sounds, no tenderness to palpation, no masses appreciated. No rebound, guarding, or rigidity noted. Musculoskeletal: right chronic Knee tenderness, no redness swelling or erythema the patient has no evidence of calf tenderness, no pitting edema, symmetrical pulses noted bilaterally Neurological: A&O x4, normal speech Psychiatric: Cooperative Constitutional Vital Signs, click to edit/add: Last Vital Signs Temp 98.3 F 11/09/24 10:28 Pulse 74 11/09/24 10:28 Resp 20 11/09/24 10:28 BP 134/70 11/09/24 10:28 Pulse Ox 96 11/09/24 10:28 Course Vital Signs Vital signs: Vital Signs Temperature 98.3 F 11/09/24 10:28 Pulse Rate 74 11/09/24 10:28 Respiratory Rate 20 11/09/24 10:28 Blood Pressure 134/70 11/09/24 10:28 Pulse Oximetry 96 11/09/24 10:28 Temperature 98.3 F 11/09/24 10:28 Pulse Rate 74 11/09/24 10:28 Respiratory Rate 20 11/09/24 10:28 Blood Pressure 134/70 11/09/24 10:28 Pulse Oximetry 96 11/09/24 10:28 Medical Decision Making MDM Narrative Medical decision making narrative: Presented with chief complaint of right knee pain. X-ray shows osteoarthritis. No acute fracture. Patient has a walker he uses at home medicated here with Toradol. Patient will be discharged home and follow-up with Dr. Jeffries scheduled for the of this month. Patient verbalized understanding agrees with plan of care Differential Diagnosis Differential Diagnosis: knee pain, sprain Medical Records Medical records reviewed: Yes I reviewed the patient's medical records Lab Data Labs: Lab Results 11/09/24 Range/Units 12:59 Urine Color Lt. yellow (YELLOW) Urine Clarity Clear (CLEAR) Urine pH 6.0 (5.0-9.0) Ur Specific [place] 1.010 (1.005-1.025) Urine Protein Negative (NEG/TRACE) mg/dL Urine Glucose (UA) Negative (NEGATIVE) mg/dL Urine Ketones Negative (NEGATIVE) mg/dL Urine Occult Blood Trace-l (NEGATIVE) Urine Nitrite Negative (NEGATIVE) Urine Bilirubin Negative (NEGATIVE) Urine Urobilinogen 0.2 (0.2-1.0) EU/dL Ur Leukocyte Esterase Negative (NEGATIVE) Urine RBC 2-5 A (0-2) #/HPF Urine WBC None seen (NONE SEEN) #/HPF Ur Squamous Epith Cells Rare (NONE/RARE) #/LPF Urine Crystals None seen (None Seen) #/HPF Urine Bacteria None seen (NONE SEEN) #/HPF Urine Casts None seen (NONE SEEN) #/LPF Urine Mucus None seen (NONE SEEN) Ur Culture Indicated? No Imaging Data knee: Radiologist's impression: ITS Impressions Hip/Pelvis X-Ray 11/09/24 10:31 IMPRESSION: Moderate osteoarthritis Electronically authenticated by: TRINIDAD BEAVER Date: 11/09/2024 11:08 Knee X-Ray 11/09/24 10:31 IMPRESSION: Osteoarthritis with no acute fracture Electronically authenticated by: TRINIDAD BEAVER Date: 11/09/2024 11:06 Discharge Plan Discharge Chief Complaint: Extremity Injury, Lower Clinical Impression: Knee pain, chronic Patient Disposition: Home, Self-Care Time of Disposition Decision: 13:30 Condition: Good Prescriptions / Home Meds: No Action hydrocodone-acetaminophen 5-325 mg tablet 1 tab PO Q6H PRN (Reason: pain) 3 Days Qty: 12 0RF Rx Instructions: M54.5 furosemide 40 mg tablet 40 mg PO DAILY PRN (Reason: edema) nitroglycerin 0.3 mg tablet, sublingual 0.3 mg sublingual Q5M PRN (Reason: chest pain) potassium chloride 20 mEq tablet extended release 20 meq PO DAILY PRN (Reason: hypokalemia) atorvastatin 10 mg tablet 10 mg PO .hs citalopram 40 mg tablet 40 mg PO DAILY meclizine 25 mg tablet 25 mg PO QID PRN (Reason: dizziness) phenobarbital 32.4 mg tablet 32.4 mg PO Q12H phenytoin sodium extended 100 mg capsule 200 mg PO TID Print Language: Kiswahili Instructions: Chronic Pain (ED), Knee Pain (ED) Referrals: Jignesh Manjarrez MD [Primary Care Provider] - 1 week Dirk Galvez MD [Physician] - 11/19/24 12:00 am Discharge Date/Time: 11/09/24 13:51 Documented by User: Zain Sena MD 11/09/24 19:49 HPI HPI - General Adult General Chief complaint: Extremity Injury, Lower Stated complaint: OTHER Time Seen by Provider: 11/09/24 13:08 Related Data Home Medications ?Medication ?Instructions ?Recorded ?Confirmed atorvastatin 10 mg tablet 10 mg PO .hs 05/12/23 05/24/24 citalopram 40 mg tablet 40 mg PO DAILY 05/12/23 05/24/24 meclizine 25 mg tablet 25 mg PO QID PRN dizziness 05/12/23 05/24/24 phenobarbital 32.4 mg tablet 32.4 mg PO Q12H 05/12/23 05/24/24 phenytoin sodium extended 100 mg 200 mg PO TID 05/12/23 05/24/24 capsule furosemide 40 mg tablet 40 mg PO DAILY PRN edema 05/24/24 05/24/24 nitroglycerin 0.3 mg sublingual 0.3 mg sublingual Q5M PRN chest 05/24/24 05/24/24 tablet pain potassium chloride 20 mEq 20 meq PO DAILY PRN hypokalemia 05/24/24 05/24/24 tablet,extended release Previous Rx's ?Medication ?Instructions ?Recorded hydrocodone 5 mg-acetaminophen 325 1 tab PO Q6H PRN pain 3 days #12 02/19/24 mg tablet tabs Allergies Allergy/AdvReac Type Severity Reaction Status Date / Time oxycodone (From OxyContin) Allergy Severe Anaphylaxis Verified 11/09/24 10:27 gabapentin Allergy Unknown Unknown Verified 11/09/24 10:27 phenytoin (From Dilantin) AdvReac Severe Dizziness Verified 11/09/24 10:27 Opioid HPI Opioid Management Most Recent Opioid Data: Last Pain Scale 6 11/09/24 10:28 11/09/24 PFSH PFS Medical History (Updated 11/09/24 @ 13:30 by Mariana Mazariegos) CAD, multiple vessel ?I25.10 - Atherosclerotic heart disease of [place] coronary artery without angina pectoris (ICD-10) 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 - Malignant neoplasm of mediastinum, part unspecified (ICD-10) Bladder cancer ?C67.9 - Malignant neoplasm of bladder, unspecified (ICD-10) HLD (hyperlipidemia) ?E78.5 - Hyperlipidemia, unspecified (ICD-10) Chest pain ?R07.9 - Chest pain, unspecified (ICD-10) Family History (Updated 12/31/23 @ 12:13 by Shaikh Florentin MD) Father Family history of myocardial infarction Sister Family history of cancer Social History Smoking status: Former smoker Highest level of school completed/degree received: Associate degree: occupational, technical, vocational program Little interest or pleasure in doing things: not at all Feeling down, depressed, or hopeless: not at all Gender Identity: male Exam Constitutional Vital Signs, click to edit/add: Last Vital Signs Temp 98.3 F 11/09/24 10:28 Pulse 74 11/09/24 10:28 Resp 20 11/09/24 10:28 BP 134/70 11/09/24 10:28 Pulse Ox 96 11/09/24 10:28 Course Vital Signs Vital signs: Vital Signs Temperature 98.3 F 11/09/24 10:28 Pulse Rate 74 11/09/24 10:28 Respiratory Rate 20 11/09/24 10:28 Blood Pressure 134/70 11/09/24 10:28 Pulse Oximetry 96 11/09/24 10:28 Temperature 98.3 F 11/09/24 10:28 Pulse Rate 74 11/09/24 10:28 Respiratory Rate 20 11/09/24 10:28 Blood Pressure 134/70 11/09/24 10:28 Pulse Oximetry 96 11/09/24 10:28 Medical Decision Making MDM Narrative Medical decision making narrative: Presented with chief complaint of right knee pain. X-ray shows osteoarthritis. No acute fracture. Patient has a walker he uses at home medicated here with Toradol. Patient will be discharged home and follow-up with Dr. Jeffries scheduled for the of this month. Patient verbalized understanding agrees with plan of care I, Dr Sena, have reviewed the above progress note and course of action in the ER; agree with the above. I have gone over history and physical, and discussed disposition and treatment plan with the patient. Lab Data Labs: Lab Results 11/09/24 Range/Units 12:59 Urine Color Lt. yellow (YELLOW) Urine Clarity Clear (CLEAR) Urine pH 6.0 (5.0-9.0) Ur Specific [place] 1.010 (1.005-1.025) Urine Protein Negative (NEG/TRACE) mg/dL Urine Glucose (UA) Negative (NEGATIVE) mg/dL Urine Ketones Negative (NEGATIVE) mg/dL Urine Occult Blood Trace-l (NEGATIVE) Urine Nitrite Negative (NEGATIVE) Urine Bilirubin Negative (NEGATIVE) Urine Urobilinogen 0.2 (0.2-1.0) EU/dL Ur Leukocyte Esterase Negative (NEGATIVE) Urine RBC 2-5 A (0-2) #/HPF Urine WBC None seen (NONE SEEN) #/HPF Ur Squamous Epith Cells Rare (NONE/RARE) #/LPF Urine Crystals None seen (None Seen) #/HPF Urine Bacteria None seen (NONE SEEN) #/HPF Urine Casts None seen (NONE SEEN) #/LPF Urine Mucus None seen (NONE SEEN) Ur Culture Indicated? No Imaging Data knee: Radiologist's impression: ITS Impressions Hip/Pelvis X-Ray 11/09/24 10:31 IMPRESSION: Moderate osteoarthritis Electronically authenticated by: TRINIDAD BEAVER Date: 11/09/2024 11:08 Knee X-Ray 11/09/24 10:31
== END 2024-11-09 13:51 | disposition home or self-care (01) ==
PROVIDERS: Emergency Provider Emergency Medicine; PCP Family Medicine
DX: M25.561 Pain in right knee (principal); G89.29 Other chronic pain; Z87.891 Personal history of nicotine dependence; M17.11 Unilateral primary osteoarthritis, right knee; M16.11 Unilateral primary osteoarthritis, right hip
CPT/HCPCS: 73502; 73564; 81001; 96372; 99285; J1885

== ENCOUNTER 2024-11-11 19:06 | Emergency (ER) | payer MEDICARE, MEDICAID, SELFPAY ==
[2024-11-11] VITALS (20 sets, daily range): BP systolic 129–163; BP diastolic 76–90; PULSE 76–99; TEMP 36.6; O2SAT 92–97; BMI 86.1
--- OUTSIDE RECORDS SUMMARY | 2024-11-11 19:17 | XMS_ITS | CCD ---
Author Organization [facility] Care Team Providers Care Outboard Technician Name Role Phone KARINA JAY Attending [...] Care Provider JIGNESH GONSALEZ Primary Care Physician [phone] Jose Mccloud DO Primary Care Provider Chris CAMARILLO Attending Unavailable JIGNESH GONSALEZ Referring Unavailable Chris CAMARILLO Attending Unavailable MD Jignesh Gonsalez Primary Care Provider RIDGE Garcia Attending Provider OVITT, CORNELIO Referring Unavailable OVITT, CORNELIO Referring Unavailable NARADIONY ARECHIGAROGERIO Referring Unavailable OVITT, CORNELIO Attending Unavailable TRACIE, CORNELIO Attending Unavailable MD Jignesh Gonsalez Primary Care Provider [phone] RIDGE Garcia Attending Provider Jignesh Gonsalez MD Primary Care Provider Jignesh Gonsalez Primary Care Unavailable Joslyn Garcia [...] Drug Allergy 4 stomach upset, IV ONLY-Dizzy [facility] Opioid Agonists (1 source) oxyCODONE Drug Allergy 4 Unknown Reaction [facility] (11 sources) gabapentin; Translations: [GABAPENTIN] Drug Allergy 0 stomach upset [facility] Repository (2 sources) oxyCODONE Drug Allergy 0 The [facility] Repository (3 sources) Phenytoin; Translations: [Dilantin] Drug Allergy 0 The [facility] Repository (15 sources) gabapentin; Translations: [gabapentin] Drug Allergy 0 Unknown (qualifier value), Unknown [facility] (20 sources) oxyCODONE; Translations: [oxycodone] Drug Allergy 0 Difficulty breathing (finding), Angioedema, Unknown [facility] (11 sources) Phenytoin; Translations: [phenytoin] Drug Allergy 6 Dizziness (finding), Dizziness [facility] (1 source) Phenytoin; Translations: [PHENYTOIN SODIUM EXTENDED] Drug Allergy 6 [facility] Repository (1 source) ALLERGIES NOT ON FILE; Translations: [ALLERGIES NOT ON FILE] Propensity to adverse reactions (disorder) [facility] Repository (1 source) gabapentin Drug Allergy 4 [facility] Repository (1 source) oxyCODONE Drug Allergy 4 [facility] Repository (1 source) Phenytoin Drug Allergy 4 [facility] Repository Medications Current Medications Medication Drug Class(es) Dates Sig (Normalized) Sig (Original) acetaminophen 325 mg / HYDROcodone bitartrate 5 mg oral tablet (16 sources) Opioid Agonist Start: 10-11-2024 End: 11-01-2024 take 1 tablet by mouth four times daily as needed for pain HYDROcodone-acetami nophen ([place]) 5-325 MG tablet Indications: Degenerative lumbar spinal stenosis Take 1 tablet by mouth 4 (four) times a day as needed for severe pain for up to 7 days 28 tablet 10/25/2024 11/01/2024 Active Start: 04-23-2024 take 1 tablet by ambika th four times daily Hydrocodone-Acetaminophen Active 1 TAB P O Four times daily April 23, 2024 12:00am [place] Active take 1 tablet by ambika th [...] 2 mg/ml injectable solution (1 source) vit I5-J0-W2-B5- B6 (B-COMPLEX INJECTION) 661-0-011-2-2 mg/mL solution B-Complex 1 QD 0 Active [...] mg tablet,disintegrating 1 tablet 0 Active Meloxicam [facility] Meloxicam Active methocarbamol 750 mg oral tablet [...] disease (20 sources) Atherosclerotic heart disease of [place] coronary artery without angina pectoris; Translations: [Coronary [...] source) [facility] (current) use of aspirin; Translations: [[facility] CURRENT USE OF ASPIRIN] Onset: 12-27-2022 Episodic Other aftercare (1 source) Other fpc (current) drug therapy; Translations: [OT [facility] CURRENT DRUG THERAPY] Onset: 12-27-2022 Episodic Other [...] (1 source) Patient encounter status; Translations: [Other fpc (current) drug therapy] Onset: 11-29-2023 11-29-2023 Episodic [...] RT 4V*on 10-17-2024 XR knee RT 4V* [facility] [place] [address] XRay Report Signed Patient: Nazario Cortes Jr MR#: [id number] : 1955 Acct:[id number] Age/Sex: 69 / M ADM Date: 10/17/24 Loc: XDUCLY Room: Type: [facility] Attending Dr: Yancy Lawson APRN Copies to: [...] Hoa Lockwood M.D.10/17/2024 2:40 PM Dictation Location: [place] [address] Transcribed By: [facility] 10/17/24 1440 Dictated By: Hoa Lockwood MD 10/17/24 1438 Signed By: 10/17/24 1440 Normal [facility] XR knee RT 4V*on 09-07-2024 XR knee RT 4V* [facility] [place] [address] [place] [address] XRay Report Signed Patient: Nazario Cortes Jr MR#: [id number] : 1955 Acct:[id number] Age/Sex: 69 / M ADM Date: 09/07/24 Loc: [facility] Room: Type: [facility] Attending Dr: Joslyn Garcia APRN Copies to: [...] Ching Jr., D.OKellie09/07/2024 4:15 PM Dictation Location: [facility] Transcribed By: PWS 09/07/24 1615 Dictated By: Bar Ching Jr, DO 09/07/241613 Signed By: 09/07/241614 Normal [facility] Influenza virus A and B and SARS-CoV-2 (COVID-19) RNA panel - Respiratory system specon 08-16-2024 Influenza virus A and B RNA and SARS-CoV-2 (COVID-19) N gene panel ALEX+probe (Resp) Negative [facility] - Microbiology an d Antimicrobial susceptibilityon 08-16-2024 SARS-CoV-2 (COVID-19) RNA ALEX+probe Ql (Unsp spec) Negative [facility] No Panel Informationon 08-16 POC Influenza B (ALEX) Negative [facility] Follow-Upon 08-08-2024 Follow-Up [id number] Nazario Cortes 1955 M Date Provider Department Center 08/08/2024 CORNELIO [facility] [place] Family History Problem Relation Age of Onset Supraventricular tachycardia Mother Stroke Father Kidney cancer Sister Diabetes Sister COPD Brother Family Status - Relation Status Age at Mother Father Sister Brother Level of Service:33850 [place] OFFICE/OUTPATIENT ESTABLISHED MOD MDM 30 MIN Reason for Visit and Comments: Follow-up [616286] - Pt is here for a follow up visit for Lumbar Stenosis. Normal [facility] 36on 07-30-2024 36 Talked to patient. Advised [...] given his ongoing issues. Verbalizes understanding. Normal [facility] Telephoneon 07-30-2024 Telephone [id number] Nazario Cortes 1955 M Date Provider Department Center 07/30/2024 CORNELIO [facility] [place] Family History Problem Relation Age of Onset Supraventricular tachycardia Mother Stroke Father Kidney cancer Sister Diabetes Sister COPD Brother Family Status - Relation Status Age at Mother Father Sister Brother Normal [facility] MR CERVICAL SPINE W AND WO C [facility] 07-26-2024 MR CERVICAL SPINE W AND WO [...] BOWMAN MD. Not Vldtd Invalid Interpretation Code [facility] XR elbow LT min 3V*on 2023 XR elbow LT min 3V* [facility] Main [place] [address] [place] [id number] XRay Report Signed Patient: Nazario Cortes Jr MR#: [id number] : 1955 Acct:[id number] Age/Sex: 69 / M ADM Date: 05/15/24 Loc: XDUCLY Room: Type: [facility] Attending Dr: Joslyn Garcia APRN Copies to: [...] Zain Fitzpatrick M.D.05/15/2024 4:23 PM Dictation Location: [place] [address] Transcribed By: [facility] 05/15/24 1623 Dictated By: Zain Fitzpatrick DO 05/15/24 1621 Signed By: 05/15/24 1623 Normal [facility] Orders Onlyon 04-11-2024 Orders Only [id number] Nazario Cortes 1955 M Date Provider Department Center 04/11/2024 [id number], HISTORICAL [facility] Humberto Hos Family History Problem Relation Age of Onset Supraventricular tachycardia Mother Stroke Father Kidney cancer Sister Diabetes Sister COPD Brother Family Status - Relation Status Age at Mother Father Sister Brother Normal [facility] Consulton 01-05-2024 Consult [id number] Nazario Cortes 1955 M Date Provider Department Center 01/05/2024 CORNELIO [facility] SURG [place] Family History Problem Relation Age of Onset Supraventricular tachycardia Mother Stroke Father Kidney cancer Sister Diabetes Sister COPD Brother Family Status - Relation Status Age at Mother Father Sister Brother Level of Service:11932 MS OFFICE/OUTPATIENT NEW MODERATE MDM 45 MINUTES Reason [...] about 6-7 years ago. Normal [facility] US CAROTID ART BILon 023 US CAROTID [...] : DR JIGNESH GONSALEZ . Admission #: [id number] Family : Order #: [id number] CLICK HERE TO VIEW EXAM ECHOCARDIOGRAM REPORT [...] by: VIDAL Lyons: 2022-12-24 20:23 Normal [facility] XR HIP LT 2 3V [...] VIDAL NAVYAKRYSTAL Date: 2022-12-24 20:21 Normal [facility] XR HUMERUS LT MIN 2Von [...] KELL DELANEY Date: 2022-12-24 21:03 Normal [facility] CBC AUTO DIFFon 11-04-2022 BASO # 0.1 103/ul Normal 0.0-0.1 [facility] Comment on above: Performed By: #### B MP, CMREP, LIPID #### [facility] [address] [place] [address] Dr. eJimy Tenorio Basophils/100 WBC (Bld) 0.9 % Normal 0.2-2.0 [facility] Comment on above: Performed By: #### B MP, CMREP, LIPID #### [facility] [address] [address] [address] Jeimy Tenorio EO # 0.3 103/ul Normal 0.0-0.7 [facility] Comment on above: Performed By: #### B MP, CMREP, LIPID #### [facility] [address] [place] [address] [address] Jeimy Tenorio Eosinophils/100 WBC (Bld) 5.2 % Normal 0.9-7.0 [facility] Comment on above: Performed By: #### B MP, CMREP, LIPID #### [facility] [address] [place] [address] Dr. Jeimy Tenorio Erythrocyte distribution width (RBC) [Ratio] 12.9 % Normal 11.0-15.0 [facility] Comment on above: Performed By: #### B MP, CMREP, LIPID #### [facility] [address] [place] [address] Dr. Jeimy Tenorio Hematocrit (Bld) [Volume fraction] 39.5 % Critically low 42.0-54.0 [facility] Comment on above: Performed By: #### B MP, CMREP, LIPID #### [facility] [address] [place] [address] Dr. Jeimy Tenorio Hemoglobin (Bld) [Mass/Vol] 13.1 g/dL Critically low 14.0-18.0 [facility] Comment on above: Performed By: #### B MP, CMREP, LIPID #### [facility] [address] [place] [address] Dr. Jeimy Tenorio IG # 0.03 10e3/ul Normal 0.00-0.03 [facility] Comment on above: Performed By: #### B MP, CMREP, LIPID #### [facility] [address] [place] [address] Dr. Jeimy Tenorio IG % 0.5 % Normal 0.0-0.5 [facility] Comment on above: Performed By: #### B MP, CMREP, LIPID #### [facility] [address] [place] [address] Dr. Jeimy Tenorio LYMPH # 1.5 103/ul Normal 1.2-3.8 [facility] Comment on above: Performed By: #### B MP, CMREP, LIPID #### [facility] [address] [place] [address] Dr. Jeimy Tenorio Lymphocytes/100 WBC (Bld) 22.6 % Normal 20.5-60.0 [facility] Comment on above: Performed By: #### B MP, CMREP, LIPID #### [facility] [address] [place] [address] Dr. Jeimy Tenorio MANUAL DIFF REQ NO Normal The [facility] Comment on above: Performed By: #### B MP, CMREP, LIPID #### [facility] [address] [place] [address] Dr. Jeimy Tenorio MCH (RBC) [Entitic mass] 32.8 pg Normal 25.9-34.0 [facility] Comment on above: Performed By: #### B MP, CMREP, LIPID #### [facility] [address] [place] [address] Dr. Jeimy Tenorio MCHC (RBC) [Mass/Vol] 33.2 g/dL Normal 29.9-35.2 [facility] Comment on above: Performed By: #### B MP, CMREP, LIPID #### [facility] [address] [place] [address] Dr. Jeimy Tenorio MCV (RBC) [Entitic vol] 99.0 fL Critically high 80.0-94.0 [facility] Comment on above: Performed By: #### B MP, CMREP, LIPID #### [facility] [address] [place] [address] Dr. Jeimy Tenorio MONO # 0.7 103/ul Normal 0.3-0.8 [facility] Comment on above: Performed By: #### B MP, CMREP, LIPID #### [facility] [address] [place] [address] Dr. Jeimy Tenorio Monocytes/100 WBC (Bld) 10.6 % Normal 1.7-12.0 [facility] Comment on above: Performed By: #### B MP, CMREP, LIPID #### [facility] [address] [place] [address] Dr. Jeimy Tenorio NEUT # 4.0 103/ul Normal 1.4-6.5 [facility] Comment on above: Performed By: #### B MP, CMREP, LIPID #### [facility] [address] [place] [address] Dr. Jeimy Tenorio Neutrophils/100 WBC (Bld) 60.2 % Normal 43.0-75.0 [facility] Comment on above: Performed By: #### B MP, CMREP, LIPID #### [facility] [address] [address] [address] Jeimy Tenorio Platelet mean volume (Bld) [Entitic vol] 9.7 fL Normal 9.5-13.5 [facility] Comment on above: Performed By: #### B MP, CMREP, LIPID #### [facility] [address] [place] [address] [address] Jeimy Tenorio PLT 176 103/ul Normal 150-450 [facility] Comment on above: Performed By: #### B MP, CMREP, LIPID #### [facility] [address] [place] [address] [address] Jeimy Tenorio RBC 3.99 106/ul Critically low 4.70-6.10 [facility] Comment on above: Performed By: #### B MP, CMREP, LIPID #### [facility] [address] [place] [address] Dr. Jeimy Tenorio WBC 6.6 103/ul Normal 4.0-11.0 [facility] Comment on above: Performed By: #### B MP, CMREP, LIPID #### [facility] [address] [place] [address] HEAD WO CONon [...] ALEJANDRO PINEDA Date: 2022-11-04 14:08 Normal [facility] Covid-19 PCR (CVDTB)on 10-21 SARS-CoV-2 (COVID-19) RNA ALEX+probe Ql (Unsp spec) Not detected Normal NOT DETECTED [facility] Comment on above: Result Comment: This test is not yet approved or cleared by the [place] FDA. When there are no FDA-approved or cleared tests available, and other criteria are met, FDA can make tests available under an emergency access mechanism called an Emergency Use Authorization (EUA). The EUA for this test is supported by the Dispatcher Relay of Health and Human Service's (HHS's) declaration [...] By: #### B MP, CMREP, LIPID #### [facility] [address] [place] [address] Dr. Jeimy Tenorio INFLUENZA A AND B AGon 11-04 INFLUANE SEE BELOW Normal [facility] Comment on above: Result Comment: Nega tive for Flu A protein angiten. Infection due to Flu A cannot be ruled out. Flu A angiten in the sample may be below the detection limit of the test. Performed By: #### I NFLUAB #### [facility] [address] [address] [address] Jeimy Tenorio INFLUBNEG SEE BELOW Normal [facility] Comment on above: Result Comment: Nega tive for Flu B protein antigen. Infection due to Flu B cannot be ruled out. Flu B antigen in the sample may be below the detection limit of the test. Performed By: #### I NFLUAB #### [facility] [address] [place] [address] Dr. Jeimy Tenorio INFLUENZA A AG Negative Normal NEGATIVE SEE COMMENT [facility] Comment on above: Performed By: #### I NFLUAB #### [facility] [address] [place] [address] Dr. Jeimy Tenorio INFLUENZA B AG Negative Normal NEGATIVE SEE COMMENT [facility] Comment on above: Performed By: #### I NFLUAB #### [facility] [address] [place] [address] Dr. Jeimy Tenorio INTERNAL CONTROLS Within Normal Limits Normal Wi thin Normal Limits [facility] Comment on above: Performed By: #### I NFLUAB #### [facility] [address] [place] [address] Dr. Jeimy Tenorio PROF CHEM 8 (BAS METB)on Anion gap [Moles/Vol] 9.7 mmol/L Normal [facility] Comment on above: Performed By: #### C BC #### [facility] [address] [place] [address] Dr. Jeimy Tenorio Calcium [Mass/Vol] 8.0 mg/dL Critically low 8.5-10.1 [facility] Comment on above: Performed By: #### C BC #### [facility] [address] [place] [address] Dr. Jeimy Tenorio Chloride [Moles/Vol] 104 mmol/L Normal 98-107 [facility] Comment on above: Performed By: #### C BC #### [facility] [address] [place] [address] Dr. Jeimy Tenorio CO2 [Moles/Vol] 31.1 mmol/L Normal 21.0-32.0 [facility] Comment on above: Performed By: #### C BC #### [facility] [address] [place] [address] Dr. Jeimy Tenorio Creatinine [Mass/Vol] 0.75 mg/dL Normal 0.70-1.30 [facility] Comment on above: Performed By: #### C BC #### [facility] [address] [place] [address] [address] Jeimy Tenorio EGFR-AF GABONESE >60 Normal >=60 [facility] Comment on above: Performed By: #### C BC #### [facility] [address] [address] [address] Jeimy Tenorio EGFR-NON AF GABONESE >60 Normal >=60 [facility] Comment on above: Performed By: #### C BC #### [facility] [address] [place] [address] [address] Jeimy Tenorio Glucose [Mass/Vol] 76 mg/dL Normal 74-106 [facility] Comment on above: Performed By: #### C BC #### [facility] [address] [place] [address] Dr. Jeimy Tenorio Potassium [Moles/Vol] 3.8 mmol/L Normal 3.5-5.1 [facility] Comment on above: Performed By: #### C BC #### [facility] [address] [address] [address] Jeimy Tenorio Sodium [Moles/Vol] 141 mmol/L Normal 136-145 [facility] Comment on above: Performed By: #### C BC #### [facility] [address] [place] [address] [address] Jeimy Tenorio Urea nitrogen [Mass/Vol] 12.0 mg/dL Normal 7.0-18.0 [facility] Comment on above: Performed By: #### C BC #### [facility] [address] [address] [address] Jeimy Tenorio Urea nitrogen/Creatinine [Mass ratio] 16.0 mg/mg Normal [facility] Comment on above: Performed By: #### C BC #### [facility] [address] [address] [address] Jeimy Tenorio TROPONIN, HIGH SENSITIVITYon 11-04-2022 HSTROP 5.8 pg/mL Normal 4.0-76.1 [facility] Comment on above: Result Comment: CUT- OFF POINTS HAVE BEEN ESTABLISHED BASED ON THE FOURTH UNIVERSAL DEFINITIONS OF MYOCARDIAL INFARCTION. THE UPPER REFERENCE LIMIT (URL) OF TROPONIN, DEFINED THE 99TH PERCENTILE OF cTnI DISTRIBUTION IN A REFERENCE POPULATION, HAS BEEN CONFIRMED THE DECISION THRESHOLD FOR [place] DIAGNOSIS. Performed By: #### C BC #### [facility] [address] [place] [address] Dr. Jeimy Tenorio CBC AUTO DIFFon 09-29-2022 BASO # 0.1 103/ul Normal 0.0-0.1 [facility] Comment on above: Performed By: #### B MP, CMREP, LIPID #### [facility] [address] [place] [address] Dr. Jeimy Tenorio Basophils/100 WBC (Bld) 1.2 % Normal 0.2-2.0 [facility] Comment on above: Performed By: #### B MP, CMREP, LIPID #### [facility] [address] [place] [address] Dr. Jeimy Tenorio EO # 0.3 103/ul Normal 0.0-0.7 [facility] Comment on above: Performed By: #### B MP, CMREP, LIPID #### [facility] [address] [place] [address] Dr. Jeimy Tenorio Eosinophils/100 WBC (Bld) 4.9 % Normal 0.9-7.0 [facility] Comment on above: Performed By: #### B MP, CMREP, LIPID #### [facility] [address] [place] [address] Dr. Jeimy Tenorio Erythrocyte distribution width (RBC) [Ratio] 13.2 % Normal 11.0-15.0 [facility] Comment on above: Performed By: #### B MP, CMREP, LIPID #### [facility] [address] [place] [address] Dr. Jeimy Tenorio Hematocrit (Bld) [Volume fraction] 42.3 % Normal 42.0-54.0 [facility] Comment on above: Performed By: #### B MP, CMREP, LIPID #### [facility] [address] [place] [address] Dr. Jeimy Tenorio Hemoglobin (Bld) [Mass/Vol] 13.8 g/dL Critically low 14.0-18.0 [facility] Comment on above: Performed By: #### B MP, CMREP, LIPID #### [facility] [address] [address] [address] Jeimy Tenorio IG # 0.02 10e3/ul Normal 0.00-0.03 [facility] Comment on above: Performed By: #### B MP, CMREP, LIPID #### [facility] [address] [address] [address] Jeimy Tenorio IG % 0.3 % Normal 0.0-0.5 [facility] Comment on above: Performed By: #### B MP, CMREP, LIPID #### [facility] [address] [address] [address] Jeimy Tenorio LYMPH # 1.3 103/ul Normal 1.2-3.8 [facility] Comment on above: Performed By: #### B MP, CMREP, LIPID #### [facility] [address] [address] [address] Jeimy Tenorio Lymphocytes/100 WBC (Bld) 19.5 % Critically low 20.5-60.0 [facility] Comment on above: Performed By: #### B MP, CMREP, LIPID #### [facility] [address] [place] [address] Dr. Jeimy Tenorio MANUAL DIFF REQ NO Normal [facility] Comment on above: Performed By: #### B MP, CMREP, LIPID #### [facility] [address] [address] [address] Jeimy Tenorio MCH (RBC) [Entitic mass] 32.9 pg Normal 25.9-34.0 [facility] Comment on above: Performed By: #### B MP, CMREP, LIPID #### [facility] [address] [address] [address] Jeimy Tenorio MCHC (RBC) [Mass/Vol] 32.6 g/dL Normal 29.9-35.2 [facility] Comment on above: Performed By: #### B MP, CMREP, LIPID #### [facility] [address] [place] [address] Dr. Jeimy Tenorio MCV (RBC) [Entitic vol] 100.7 fL Critically high 80.0-94.0 [facility] Comment on above: Performed By: #### B MP, CMREP, LIPID #### [facility] [address] [place] [address] Dr. Jeimy Tenorio MONO # 0.7 103/ul Normal 0.3-0.8 [facility] Comment on above: Performed By: #### B MP, CMREP, LIPID #### [facility] [address] [place] [address] Dr. Jeimy Tenorio Monocytes/100 WBC (Bld) 9.9 % Normal 1.7-12.0 [facility] Comment on above: Performed By: #### B MP, CMREP, LIPID #### [facility] [address] [place] [address] Dr. Jeimy Tenorio NEUT # 4.3 103/ul Normal 1.4-6.5 [facility] Comment on above: Performed By: #### B MP, CMREP, LIPID #### [facility] [address] [place] [address] Dr. Jeimy Tenorio Neutrophils/100 WBC (Bld) 64.2 % Normal 43.0-75.0 [facility] Comment on above: Performed By: #### B MP, CMREP, LIPID #### [facility] [address] [place] [address] Dr. Jeimy Tenorio Platelet mean volume (Bld) [Entitic vol] 10.4 fL Normal 9.5-13.5 [facility] Comment on above: Performed By: #### B MP, CMREP, LIPID #### [facility] [address] [place] [address] Dr. Jeimy Tenorio PLT 209 103/ul Normal 150-450 [facility] Comment on above: Performed By: #### B MP, CMREP, LIPID #### [facility] [address] [place] [address] Dr. Jeimy Tenorio RBC 4.20 106/ul Critically low 4.70-6.10 [facility] Comment on above: Performed By: #### B MP, CMREP, LIPID #### [facility] [address] [address] [address] Jeimy Tenorio WBC 6.7 103/ul Normal 4.0-11.0 [facility] Comment on above: Performed By: #### B MP, CMREP, LIPID #### [facility] [address] [address] [address] Jeimy Tenorio DILANTINon 09-29-2022 Phenytoin [Mass/Vol] 23.7 ug/mL Critically high 10.0-20.0 [facility] Comment on above: Performed By: #### C BC #### [facility] [address] [place] [address] Dr. Jeimy Tenorio GLYCOHEMOGLOBIN A1Con 2021 ADA RECOMMENDATION SEE BELOW Normal [facility] Comment on above: Result Comment: ADA RECOMMENDED LIMIT 4.0 - 6.0 ADA THERAPEUTIC TARGET < 7.0 ACTION SUGGESTED > 7.0 Performed By: #### A 1C #### [facility] [address] [address] [address] Jeimy Tenorio Glucose [Mass/Vol] 105 mg/dL Normal [facility] Comment on above: Performed By: #### A 1C #### [facility] [address] [place] [address] Dr. Jeimy Tenorio HbA1c (Bld) [Mass fraction] 5.3 % Normal 4.5-6.2 [facility] Comment on above: Performed By: #### A 1C #### [facility] [address] [place] [address] Dr. Jeimy Tenorio LIPID PROFILEon 09-29-2022 CHOL-HDL RATIO NORM SEE BELOW Normal [facility] Comment on above: Result Comment: 3.3 - 4.4 LOW RISK 4.4 - 7.1 AVERAGE RISK 7.1 - 11.0 MODERATE RISK >11.0 HIGH RISK Performed By: #### B MP, CMREP, LIPID #### [facility] [address] [address] [address] Jeimy Tenorio Cholesterol [Mass/Vol] 178 mg/dL Normal <=200 [facility] Comment on above: Performed By: #### B MP, CMREP, LIPID #### [facility] [address] [address] [address] Jeimy Tenorio Cholesterol in HDL [Mass/Vol] 56 mg/dL Normal 40-60 [facility] Comment on above: Performed By: #### B MP, CMREP, LIPID #### [facility] [address] [place] [address] Dr. Jeimy Tenorio Cholesterol in LDL [Mass/Vol] 86.8 mg/dL Normal [facility] Comment on above: Performed By: #### B MP, CMREP, LIPID #### [facility] [address] [place] [address] Dr. Jeimy Tenorio Cholesterol.total/Ch olesterol in HDL [Mass ratio] 3.2 {ratio} Normal [facility] Comment on above: Performed By: #### B MP, CMREP, LIPID #### [facility] [address] [place] [address] Dr. Jeimy Tenorio HDL NORMAL > or = 60 mg/dl - LOW CARDIOVASCULAR RISK <40 mg/dl - HIGH CARDIOVASCULAR RISK Normal [facility] Comment on above: Performed By: #### B MP, CMREP, LIPID #### [facility] [address] [place] [address] Dr. Jeimy Tenorio LDL CALC NORMAL SEE BELOW Normal [facility] Comment on above: Result Comment: <100 mg/dl OPTIMAL 100 - 129 mg/dl NEAR OR ABOVE OPTIMAL 130 - 159 mg/dl BORDERLINE HIGH 160 - 189 mg/dl HIGH >190 mg/dl VERY HIGH Performed By: #### B MP, CMREP, LIPID #### [facility] [address] [place] [address] Dr. Jeimy Tenorio Triglyceride [Mass/Vol] 176 mg/dL Critically high <=150 [facility] Comment on above: Performed By: #### B MP, CMREP, LIPID #### [facility] [address] [place] [address] Dr. Jeimy Tenorio VLDL CALC 35.2 mg/dL Normal [facility] Comment on above: Performed By: #### B MP, CMREP, LIPID #### [facility] [address] [address] [address] Jeimy Tenorio LIVER PROFILEon 09-29-2022 Albumin [Mass/Vol] 3.5 g/dL Normal 3.4-5.0 [facility] Comment on above: Performed By: #### B MP, CMREP, LIPID #### [facility] [address] [address] [address] Jeimy Tenorio Albumin/Globulin [Mass ratio] 0.8 {ratio} Normal [facility] Comment on above: Performed By: #### B MP, CMREP, LIPID #### [facility] [address] [place] [address] Dr. Jeimy Tenorio ALP [Catalytic activity/Vol] 139 U/L Critically high 46-116 [facility] Comment on above: Performed By: #### B MP, CMREP, LIPID #### [facility] [address] [place] [address] Dr. Jeimy Tenorio ALT [Catalytic activity/Vol] 25 U/L Normal 16-63 [facility] Comment on above: Performed By: #### B MP, CMREP, LIPID #### [facility] [address] [place] [address] Dr. Jeimy Tenorio AST [Catalytic activity/Vol] 23 U/L Normal 15-37 [facility] Comment on above: Performed By: #### B MP, CMREP, LIPID #### [facility] [address] [place] [address] Dr. Jeimy Tenorio BILI, CONJUGATED 0.0 mg/dL Normal 0.0-0.2 [facility] Comment on above: Performed By: #### B MP, CMREP, LIPID #### [facility] [address] [place] [address] Dr. Jeimy Tenorio Bilirubin [Mass/Vol] 0.3 mg/dL Normal 0.2-1.0 [facility] Comment on above: Performed By: #### B MP, CMREP, LIPID #### [facility] [address] [place] [address] Dr. Jeimy Tenorio Globulin (S) [Mass/Vol] 4.3 g/dL Normal [facility] Comment on above: Performed By: #### B MP, CMREP, LIPID #### [facility] [address] [place] [address] Dr. Jeimy Tenorio Protein [Mass/Vol] 7.8 g/dL Normal 6.4-8.2 [facility] Comment on above: Performed By: #### B MP, CMREP, LIPID #### [facility] [address] [place] [address] Dr. Jeimy Tenorio PROF CHEM 8 (BAS METB)on Anion gap [Moles/Vol] 8.7 mmol/L Normal [facility] Comment on above: Performed By: #### B MP, CMREP, LIPID #### [facility] [address] [place] [address] Dr. Jeimy Tenorio Calcium [Mass/Vol] 8.7 mg/dL Normal 8.5-10.1 [facility] Comment on above: Performed By: #### B MP, CMREP, LIPID #### [facility] [address] [place] [address] Dr. Jeimy Tenorio Chloride [Moles/Vol] 104 mmol/L Normal 98-107 [facility] Comment on above: Performed By: #### B MP, CMREP, LIPID #### [facility] [address] [place] [address] Dr. Jeimy Tenorio CO2 [Moles/Vol] 29.8 mmol/L Normal 21.0-32.0 [facility] Comment on above: Performed By: #### B MP, CMREP, LIPID #### [facility] [address] [place] [address] Dr. Jeimy Tenorio Creatinine [Mass/Vol] 0.76 mg/dL Normal 0.70-1.30 [facility] Comment on above: Performed By: #### B MP, CMREP, LIPID #### [facility] [address] [place] [address] Dr. Jeimy Tenorio EGFR-AF GABONESE >60 Normal >=60 [facility] Comment on above: Performed By: #### B MP, CMREP, LIPID #### [facility] [address] [place] [address] Dr. Jeimy Tenorio EGFR-NON AF GABONESE >60 Normal >=60 [facility] Comment on above: Performed By: #### B MP, CMREP, LIPID #### [facility] [address] [place] [address] Dr. Jeimy Tenorio Glucose [Mass/Vol] 95 mg/dL Normal 74-106 [facility] Comment on above: Performed By: #### B MP, CMREP, LIPID #### [facility] [address] [place] [address] Dr. Jeimy Tenorio Potassium [Moles/Vol] 4.5 mmol/L Normal 3.5-5.1 [facility] Comment on above: Performed By: #### B MP, CMREP, LIPID #### [facility] [address] [place] [address] Dr. Jeimy Tenorio Sodium [Moles/Vol] 138 mmol/L Normal 136-145 [facility] Comment on above: Performed By: #### B MP, CMREP, LIPID #### [facility] [address] [place] [address] Dr. Jeimy Tenorio Urea nitrogen [Mass/Vol] 18.0 mg/dL Normal 7.0-18.0 [facility] Comment on above: Performed By: #### B MP, CMREP, LIPID #### [facility] [address] [place] [address] Dr. Jeimy Tenorio Urea nitrogen/Creatinine [Mass ratio] 23.7 mg/mg Normal [facility] Comment on above: Performed By: #### B MP, CMREP, LIPID #### [facility] [address] [place] [address] Dr. Jeimy Tenorio TSHon 09-29-2022 TSH 1.694 uIU/mL Normal 0.358-3.740 [facility] Comment on above: Performed By: #### B MP, CMREP, LIPID #### [facility] [address] [address] [address] Jeimy Tenorio CARDIAC SAWYER 3-6on 2 CK [Catalytic activity/Vol] 47 U/L Normal 39-308 [facility] Comment on above: Performed By: #### B MP, CMREP, LIPID #### [facility] [address] [address] [address] Jeimy Tenorio CK.MB [Mass/Vol] 0.77 ng/mL Normal <=3.60 [facility] Comment on above: Performed By: #### B MP, CMREP, LIPID #### [facility] [address] [address] [address] Jeimy Tenorio HSTROP 6.9 pg/mL Normal 4.0-76.1 [facility] Comment on above: Result Comment: CUT- OFF POINTS HAVE BEEN ESTABLISHED BASED ON THE FOURTH UNIVERSAL DEFINITIONS OF MYOCARDIAL INFARCTION. THE UPPER REFERENCE LIMIT (URL) OF TROPONIN, DEFINED THE 99TH PERCENTILE OF cTnI DISTRIBUTION IN A REFERENCE POPULATION, HAS BEEN CONFIRMED THE DECISION THRESHOLD FOR IA DIAGNOSIS. Performed By: #### B MP, CMREP, LIPID #### [facility] [address] [address] [address] Jeimy Tenorio CK [Catalytic activity/Vol] 53 U/L Normal 39-308 [facility] Comment on above: Performed By: #### C BC #### [facility] [address] [address] [address] Jeimy Tenorio CK.MB [Mass/Vol] 0.80 ng/mL Normal <=3.60 [facility] Comment on above: Performed By: #### C BC #### [facility] [address] [address] [address] Jeimy Tenorio HSTROP 6.2 pg/mL Normal 4.0-76.1 [facility] Comment on above: Result Comment: CUT- OFF POINTS HAVE BEEN ESTABLISHED BASED ON THE FOURTH UNIVERSAL DEFINITIONS OF MYOCARDIAL INFARCTION. THE UPPER REFERENCE LIMIT (URL) OF TROPONIN, DEFINED THE 99TH PERCENTILE OF cTnI DISTRIBUTION IN A REFERENCE POPULATION, HAS BEEN CONFIRMED THE DECISION THRESHOLD FOR IA DIAGNOSIS. Performed By: #### C BC #### [facility] [address] [place] [address] Dr. Jeimy Tenorio CBC AUTO DIFFon 06-12-2022 BASO # 0.1 103/ul Normal 0.0-0.1 [facility] Comment on above: Performed By: #### C BC #### [facility] [address] [place] [address] Dr. Jeimy Tenorio Basophils/100 WBC (Bld) 0.9 % Normal 0.2-2.0 [facility] Comment on above: Performed By: #### C BC #### [facility] [address] [place] [address] Dr. Jeimy Tenorio EO # 0.3 103/ul Normal 0.0-0.7 [facility] Comment on above: Performed By: #### C BC #### [facility] [address] [place] [address] Dr. Jeimy Tenorio Eosinophils/100 WBC (Bld) 5.2 % Normal 0.9-7.0 [facility] Comment on above: Performed By: #### C BC #### [facility] [address] [place] [address] Dr. Jeimy Tenorio Erythrocyte distribution width (RBC) [Ratio] 13.0 % Normal 11.0-15.0 [facility] Comment on above: Performed By: #### C BC #### [facility] [address] [place] [address] Dr. Jeimy Tenorio Hematocrit (Bld) [Volume fraction] 39.1 % Critically low 42.0-54.0 [facility] Comment on above: Performed By: #### C BC #### [facility] [address] [place] [address] Dr. Jeimy Tenorio Hemoglobin (Bld) [Mass/Vol] 13.2 g/dL Critically low 14.0-18.0 [facility] Comment on above: Performed By: #### C BC #### [facility] [address] [place] [address] Dr. Jeimy Tenorio IG # 0.03 10e3/ul Normal 0.00-0.03 [facility] Comment on above: Performed By: #### C BC #### [facility] [address] [place] [address] Dr. Jeimy Tenorio IG % 0.5 % Normal 0.0-0.5 [facility] Comment on above: Performed By: #### C BC #### [facility] [address] [place] [address] Dr. Jeimy Tenorio LYMPH # 1.7 103/ul Normal 1.2-3.8 [facility] Comment on above: Performed By: #### C BC #### [facility] [address] [place] [address] Dr. Jeimy Tenorio Lymphocytes/100 WBC (Bld) 26.0 % Normal 20.5-60.0 [facility] Comment on above: Performed By: #### C BC #### [facility] [address] [place] [address] Dr. Jeimy Tenorio MANUAL DIFF REQ NO Normal [facility] Comment on above: Performed By: #### C BC #### [facility] [address] [place] [address] Dr. Jeimy Tenorio MCH (RBC) [Entitic mass] 33.2 pg Normal 25.9-34.0 [facility] Comment on above: Performed By: #### C BC #### [facility] [address] [place] [address] Dr. Jeimy Tenorio MCHC (RBC) [Mass/Vol] 33.8 g/dL Normal 29.9-35.2 [facility] Comment on above: Performed By: #### C BC #### [facility] [address] [place] [address] Dr. Jeimy Tenorio MCV (RBC) [Entitic vol] 98.5 fL Critically high 80.0-94.0 [facility] Comment on above: Performed By: #### C BC #### [facility] [address] [place] [address] Dr. Jeimy Tenorio MONO # 0.8 103/ul Normal 0.3-0.8 [facility] Comment on above: Performed By: #### C BC #### [facility] [id number] Jeimy Tenorio Monocytes/100 WBC (Bld) 12.2 % Critically high 1.7-12.0 [facility] Comment on above: Performed By: #### C BC #### [facility] [address] [address] [address] Jeimy Tenorio NEUT # 3.6 103/ul Normal 1.4-6.5 [facility] Comment on above: Performed By: #### C BC #### [facility] [address] [address] [address] Jeimy Tenorio Neutrophils/100 WBC (Bld) 55.2 % Normal 43.0-75.0 [facility] Comment on above: Performed By: #### C BC #### [facility] [address] [place] [address] Dr. Jeimy Tenorio Platelet mean volume (Bld) [Entitic vol] 9.9 fL Normal 9.5-13.5 [facility] Comment on above: Performed By: #### C BC #### [facility] [address] [address] [address] Jeimy Tenorio PLT 174 103/ul Normal 150-450 [facility] Comment on above: Performed By: #### C BC #### [facility] [address] [address] [address] Jeimy Tenorio RBC 3.97 106/ul Critically low 4.70-6.10 [facility] Comment on above: Performed By: #### C BC #### [facility] [address] [place] [address] Dr. Jeimy Tenorio WBC 6.5 103/ul Normal 4.0-11.0 [facility] Comment on above: Performed By: #### C BC #### [facility] [address] [place], [place] [id number] Dr. Jeimy Tenorio CTA CHEST WO W [...] MAMIE ALFORD Date: 2022-06-12 00:21 Normal [facility] SARS-CoV-2 (COVID-19) RNA ALEX+probe Ql (Unsp spec) Not detected Normal NOT DETECTED [facility] Comment on above: Result Comment: [...] for this test is supported by the [employer] of [employer] and Human Service's declaration that [...] By: #### B MP, CMREP, LIPID #### [facility] [address] [place] [address] Dr. Jeimy Tenorio ER URINE PROFILEon 2 Bilirubin Ql (U) Negative Normal NEGATIVE [facility] Comment on above: Performed By: #### E RUR #### [facility] [address] [place] [address] Dr. Jeimy Tenorio Clarity (U) CLEAR Normal CLEAR [facility] Comment on above: Performed By: #### E RUR #### [facility] [address] [place] [address] Dr. Jeimy Tenorio Color (U) LT. YELLOW Normal YELLOW [facility] Comment on above: Performed By: #### E RUR #### [facility] [address] [place] [address] Dr. Jeimy Tenorio ERUAHD A micrscopic examination will be performed if indicated. Normal [facility] Comment on above: Performed By: #### E RUR #### [facility] [address] [place] [address] Dr. Jeimy Tenorio Glucose Ql (U) Negative Normal NEGATIVE [facility] Comment on above: Performed By: #### E RUR #### [facility] [address] [place] [address] Dr. Jeimy Tenorio Hemoglobin Ql (U) Negative Normal NEGATIVE [facility] Comment on above: Performed By: #### E RUR #### [facility] [address] [place] [address] Dr. Jeimy Tenorio Ketones Ql (U) TRACE Abnormal NEGATIVE [facility] Comment on above: Performed By: #### E RUR #### [facility] [address] [place] [address] Dr. Jeimy Tenorio LEUKOCYTES Negative Normal NEGATIVE [facility] Comment on above: Performed By: #### E RUR #### [facility] [address] [place] [address] Dr. Jeimy Tenorio Nitrite Ql (U) Negative Normal NEGATIVE [facility] Comment on above: Performed By: #### E RUR #### [facility] [address] [place] [address] Dr. Jeimy Tenorio pH (U) 5.5 [pH] Normal 5-9 [facility] Comment on above: Performed By: #### E RUR #### [facility] [address] [place] [address] Dr. Jeimy Tenorio SPEC GRAVITY 1.010 Normal 1.005-<=1.025 [facility] Comment on above: Performed By: #### E RUR #### [facility] [address] [place] [address] Dr. Jeimy Tenorio UA PROTEIN Negative Normal NEGATIVE/ TRACE [facility] Comment on above: Performed By: #### E RUR #### [facility] [address] [place] [address] Dr. Jeimy Tenorio UR MICRO IND NOT INDICATED Normal [facility] Comment on above: Performed By: #### E RUR #### [facility] [address] [place] [address] Dr. Jeimy Tenorio Urobilinogen Qn (U) 0.2 {Raphael'U}/dL Normal 0.2 - 1. 0 [facility] Comment on above: Performed By: #### E RUR #### [facility] [address] [place] [address] Dr. Jeimy Tenorio GLYCOHEMOGLOBIN A1Con 2021 ADA RECOMMENDATION SEE BELOW Normal [facility] Comment on above: Result Comment: ADA RECOMMENDED LIMIT 4.0 - 6.0 ADA THERAPEUTIC TARGET < 7.0 ACTION SUGGESTED > 7.0 Performed By: #### C BC #### [facility] [address] [place] [address] Dr. Jeimy Tenorio Glucose [Mass/Vol] 103 mg/dL Normal [facility] Comment on above: Performed By: #### C BC #### [facility] [address] [place] [address] Dr. Jeimy Tenorio HbA1c (Bld) [Mass fraction] 5.2 % Normal 4.5-6.2 [facility] Comment on above: Performed By: #### C BC #### [facility] [address] [place] [address] Dr. Jeimy Tenorio LIPID PROFILEon 06-12-2022 CHOL-HDL RATIO NORM SEE BELOW Normal [facility] Comment on above: Result Comment: 3.3 - 4.4 LOW RISK 4.4 - 7.1 AVERAGE RISK 7.1 - 11.0 MODERATE RISK >11.0 HIGH RISK Performed By: #### B MP, CMREP, LIPID #### [facility] [address] [place] [address] Dr. Jeimy Tenorio Cholesterol [Mass/Vol] 142 mg/dL Normal <=200 [facility] Comment on above: Performed By: #### B MP, CMREP, LIPID #### [facility] [address] [place] [address] Dr. Jeimy Tenorio Cholesterol in HDL [Mass/Vol] 49 mg/dL Normal 40-60 [facility] Comment on above: Performed By: #### B MP, CMREP, LIPID #### [facility] [address] [place] [address] Dr. Jeimy Tenorio Cholesterol in LDL [Mass/Vol] 64.6 mg/dL Normal [facility] Comment on above: Performed By: #### B MP, CMREP, LIPID #### [facility] [address] [place] [address] Dr. Jeimy Tenorio Cholesterol.total/Ch olesterol in HDL [Mass ratio] 2.9 {ratio} Normal [facility] Comment on above: Performed By: #### B MP, CMREP, LIPID #### [facility] [address] [place] [address] Dr. Jeimy Tenorio HDL NORMAL > or = 60 mg/dl - LOW CARDIOVASCULAR RISK <40 mg/dl - HIGH CARDIOVASCULAR RISK Normal [facility] Comment on above: Performed By: #### B MP, CMREP, LIPID #### [facility] [address] [place] [address] Dr. Jeimy Tenorio LDL CALC NORMAL SEE BELOW Normal [facility] Comment on above: Result Comment: <100 mg/dl OPTIMAL 100 - 129 mg/dl NEAR OR ABOVE OPTIMAL 130 - 159 mg/dl BORDERLINE HIGH 160 - 189 mg/dl HIGH >190 mg/dl VERY HIGH Performed By: #### B MP, CMREP, LIPID #### [facility] [address] [address] [address] Jeimy Tenorio Triglyceride [Mass/Vol] 142 mg/dL Normal <=150 [facility] Comment on above: Performed By: #### B MP, CMREP, LIPID #### [facility] [address] [address] [address] Jeimy Tenorio VLDL CALC 28.4 mg/dL Normal [facility] Comment on above: Performed By: #### B MP, CMREP, LIPID #### [facility] [address] [place] [address] Dr. Jeimy Tenorio PROF CHEM 8 (BAS METB)on Anion gap [Moles/Vol] 10.1 mmol/L Normal [facility] Comment on above: Performed By: #### B MP, CMREP, LIPID #### [facility] [address] [address] [address] Jeimy Tenorio Calcium [Mass/Vol] 8.0 mg/dL Critically low 8.5-10.1 [facility] Comment on above: Performed By: #### B MP, CMREP, LIPID #### [facility] [address] [address] [address] Jeimy Tenorio Chloride [Moles/Vol] 104 mmol/L Normal 98-107 [facility] Comment on above: Performed By: #### B MP, CMREP, LIPID #### [facility] [address] [address] [address] Jeimy Tenorio CO2 [Moles/Vol] 27.0 mmol/L Normal 21.0-32.0 [facility] Comment on above: Performed By: #### B MP, CMREP, LIPID #### [facility] [address] [address] [address] Jeimy Tenorio Creatinine [Mass/Vol] 0.79 mg/dL Normal 0.70-1.30 [facility] Comment on above: Performed By: #### B MP, CMREP, LIPID #### [facility] [address] [address] [address] Jeimy Tenorio EGFR-AF GABONESE >60 Normal >=60 [facility] Comment on above: Performed By: #### B MP, CMREP, LIPID #### [facility] [address] [address] [address] Jeimy Tenorio EGFR-NON AF GABONESE >60 Normal >=60 [facility] Comment on above: Performed By: #### B MP, CMREP, LIPID #### [facility] [address] [place] [address] Dr. Jeimy Tenorio Glucose [Mass/Vol] 101 mg/dL Normal 74-106 [facility] Comment on above: Performed By: #### B MP, CMREP, LIPID #### [facility] [address] [place] [address] Dr. Jeimy Tenorio Potassium [Moles/Vol] 4.1 mmol/L Normal 3.5-5.1 [facility] Comment on above: Performed By: #### B MP, CMREP, LIPID #### [facility] [address] [place] [address] Dr. Jeimy Tenorio Sodium [Moles/Vol] 137 mmol/L Normal 136-145 [facility] Comment on above: Performed By: #### B MP, CMREP, LIPID #### [facility] [address] [place] [address] Dr. Jeimy Tenorio Urea nitrogen [Mass/Vol] 15.0 mg/dL Normal 7.0-18.0 [facility] Comment on above: Performed By: #### B MP, CMREP, LIPID #### [facility] [address] [place] [address] Dr. Jeimy Tenorio Urea nitrogen/Creatinine [Mass ratio] 19.0 mg/mg Normal [facility] Comment on above: Performed By: #### B MP, CMREP, LIPID #### [facility] [address] [place] [address] Dr. Jeimy Tenorio CARDIAC SAWYER ADMITon 022 CK [Catalytic activity/Vol] 50 U/L Normal 39-308 [facility] Comment on above: Performed By: #### C BC #### [facility] [address] [place] [address] Dr. Jeimy Tenorio CK.MB [Mass/Vol] 0.80 ng/mL Normal <=3.60 [facility] Comment on above: Performed By: #### C BC #### [facility] [address] [place] [address] Dr. Jeimy Tenorio HSTROP 5.2 pg/mL Normal 4.0-76.1 [facility] Comment on above: Result Comment: CUT- OFF POINTS HAVE BEEN ESTABLISHED BASED ON THE FOURTH UNIVERSAL DEFINITIONS OF MYOCARDIAL INFARCTION. THE UPPER REFERENCE LIMIT (URL) OF TROPONIN, DEFINED THE 99TH PERCENTILE OF cTnI DISTRIBUTION IN A REFERENCE POPULATION, HAS BEEN CONFIRMED THE DECISION THRESHOLD FOR IA DIAGNOSIS. Performed By: #### C BC #### [facility] [address] [place] [address] Dr. Jeimy Tenorio MAGALIE 41 ng/mL Normal 16-96 [facility] Comment on above: Performed By: #### C BC #### [facility] [address] [place] [address] Dr. Jeimy Tenorio CBC AUTO DIFFon 06-11-2022 BASO # 0.0 103/ul Normal 0.0-0.1 [facility] Comment on above: Performed By: #### C BC #### [facility] [address] [place] [address] Dr. Jeimy Tenorio Basophils/100 WBC (Bld) 0.6 % Normal 0.2-2.0 [facility] Comment on above: Performed By: #### C BC #### [facility] [address] [place] [address] Dr. Jeimy Tenorio EO # 0.4 103/ul Normal 0.0-0.7 [facility] Comment on above: Performed By: #### C BC #### [facility] [address] [place] [address] Dr. Jeimy Tenorio Eosinophils/100 WBC (Bld) 4.9 % Normal 0.9-7.0 [facility] Comment on above: Performed By: #### C BC #### [facility] [address] [place] [address] Dr. Jeimy Tenorio Erythrocyte distribution width (RBC) [Ratio] 13.1 % Normal 11.0-15.0 [facility] Comment on above: Performed By: #### C BC #### [facility] [address] [place] [address] Dr. Jeimy Tenorio Hematocrit (Bld) [Volume fraction] 38.1 % Critically low 42.0-54.0 [facility] Comment on above: Performed By: #### C BC #### [facility] [address] [place] [address] Dr. Jeimy Tenorio Hemoglobin (Bld) [Mass/Vol] 13.0 g/dL Critically low 14.0-18.0 [facility] Comment on above: Performed By: #### C BC #### [facility] [address] [place] [address] Dr. Jeimy Tenorio IG # 0.02 10e3/ul Normal 0.00-0.03 [facility] Comment on above: Performed By: #### C BC #### [facility] [address] [place] [address] Dr. Jeimy Tenorio IG % 0.3 % Normal 0.0-0.5 [facility] Comment on above: Performed By: #### C BC #### [facility] [address] [place] [address] Dr. Jeimy Tenorio LYMPH # 1.7 103/ul Normal 1.2-3.8 [facility] Comment on above: Performed By: #### C BC #### [facility] [address] [place] [address] Dr. Jeimy Tenorio Lymphocytes/100 WBC (Bld) 22.9 % Normal 20.5-60.0 [facility] Comment on above: Performed By: #### C BC #### [facility] [address] [place] [address] Dr. Jeimy Tenorio MANUAL DIFF REQ NO Normal [facility] Comment on above: Performed By: #### C BC #### [facility] [address] [place] [address] Dr. Jeimy Tenorio MCH (RBC) [Entitic mass] 33.5 pg Normal 25.9-34.0 [facility] Comment on above: Performed By: #### C BC #### [facility] [address] [place] [address] Dr. Jeimy Tenorio MCHC (RBC) [Mass/Vol] 34.1 g/dL Normal 29.9-35.2 [facility] Comment on above: Performed By: #### C BC #### [facility] [address] [place] [address] Dr. Jeimy Tenorio MCV (RBC) [Entitic vol] 98.2 fL Critically high 80.0-94.0 [facility] Comment on above: Performed By: #### C BC #### [facility] [address] [place] [address] Dr. Jeimy Tenorio MONO # 0.8 103/ul Normal 0.3-0.8 [facility] Comment on above: Performed By: #### C BC #### [facility] [address] [place] [address] Dr. Jeimy Tenorio Monocytes/100 WBC (Bld) 11.5 % Normal 1.7-12.0 [facility] Comment on above: Performed By: #### C BC #### [facility] [address] [place] [address] Dr. Jeimy Tenorio NEUT # 4.3 103/ul Normal 1.4-6.5 [facility] Comment on above: Performed By: #### C BC #### [facility] [address] [place] [address] Dr. Jeimy Tenorio Neutrophils/100 WBC (Bld) 59.8 % Normal 43.0-75.0 [facility] Comment on above: Performed By: #### C BC #### [facility] [address] [place] [address] Dr. Jeimy Tenorio Platelet mean volume (Bld) [Entitic vol] 9.8 fL Normal 9.5-13.5 [facility] Comment on above: Performed By: #### C BC #### [facility] [address] [place] [address] Dr. Jeimy Tenorio PLT 181 103/ul Normal 150-450 [facility] Comment on above: Performed By: #### C BC #### [facility] [id number] Jeimy Tenorio RBC 3.88 106/ul Critically low 4.70-6.10 [facility] Comment on above: Performed By: #### C BC #### [facility] [address] [address] [address] Jeimy Tenorio WBC 7.2 103/ul Normal 4.0-11.0 [facility] Comment on above: Performed By: #### C BC #### [facility] [address] [place] [address] Dr. Jeimy Tenorio D-DIMERon 06-11-2022 D-DIMER 0.63 mg/L FEU Critically high <=0.59 [facility] Comment on above: Performed By: #### D DIM #### [facility] [address] [place] [address] Dr. Jeimy Tenorio D-DIMER COMMENTS SEE BELOW Normal [facility] Comment on above: Result Comment: Incr [...] hospitalization. Performed By: #### D DIM #### [facility] [address] [place] [address] Dr. Jeimy Tenorio PROF 14(COMP METB)on 022 Albumin [Mass/Vol] 3.3 g/dL Critically low 3.4-5.0 [facility] Comment on above: Performed By: #### C BC #### [facility] [address] [place] [address] Dr. Jeimy Tenorio Albumin/Globulin [Mass ratio] 0.8 {ratio} Normal [facility] Comment on above: Performed By: #### C BC #### [facility] [address] [place] [address] Dr. Jeimy Tenorio ALP [Catalytic activity/Vol] 160 U/L Critically high 46-116 [facility] Comment on above: Performed By: #### C BC #### [facility] [address] [place] [address] Dr. Jeimy Tenorio ALT [Catalytic activity/Vol] 26 U/L Normal 16-63 [facility] Comment on above: Performed By: #### C BC #### [facility] [address] [place] [address] Dr. Jeimy Tenorio Anion gap [Moles/Vol] 10.4 mmol/L Normal [facility] Comment on above: Performed By: #### C BC #### [facility] [address] [place] [address] Dr. Jeimy Tenorio AST [Catalytic activity/Vol] 16 U/L Normal 15-37 [facility] Comment on above: Performed By: #### C BC #### [facility] [address] [place] [address] Dr. Jeimy Tenorio Bilirubin [Mass/Vol] 0.2 mg/dL Normal 0.2-1.0 [facility] Comment on above: Performed By: #### C BC #### [facility] [address] [place] [address] Dr. Jeimy Tenorio Calcium [Mass/Vol] 8.2 mg/dL Critically low 8.5-10.1 [facility] Comment on above: Performed By: #### C BC #### [facility] [address] [place] [address] Dr. Jeimy Tenorio Chloride [Moles/Vol] 105 mmol/L Normal 98-107 [facility] Comment on above: Performed By: #### C BC #### [facility] [address] [place] [address] Dr. Jeimy Tenorio CO2 [Moles/Vol] 26.5 mmol/L Normal 21.0-32.0 [facility] Comment on above: Performed By: #### C BC #### [facility] [address] [place] [address] Dr. Jeimy Tenorio Creatinine [Mass/Vol] 0.96 mg/dL Normal 0.70-1.30 [facility] Comment on above: Performed By: #### C BC #### [facility] [address] [place] [address] Dr. Jeimy Tenorio EGFR-AF GABONESE >60 Normal >=60 [facility] Comment on above: Performed By: #### C BC #### [facility] [address] [place] [address] Dr. Jeimy Tenorio EGFR-NON AF GABONESE >60 Normal >=60 [facility] Comment on above: Performed By: #### C BC #### [facility] [address] [place] [address] Dr. Jeimy Tenorio Globulin (S) [Mass/Vol] 4.0 g/dL Normal [facility] Comment on above: Performed By: #### C BC #### [facility] [address] [place] [address] Dr. Jeimy Tenorio Glucose [Mass/Vol] 140 mg/dL Critically high 74-106 [facility] Comment on above: Performed By: #### C BC #### [facility] [address] [place] [address] Dr. Jeimy Tenorio Potassium [Moles/Vol] 3.9 mmol/L Normal 3.5-5.1 [facility] Comment on above: Performed By: #### C BC #### [facility] [address] [place] [address] Dr. Jeimy Tenorio Protein [Mass/Vol] 7.3 g/dL Normal 6.4-8.2 [facility] Comment on above: Performed By: #### C BC #### [facility] [address] [place] [address] Dr. Jeimy Tenorio Sodium [Moles/Vol] 138 mmol/L Normal 136-145 [facility] Comment on above: Performed By: #### C BC #### [facility] [address] [place], [place] [address] Dr. Jeimy Tenorio Urea nitrogen [Mass/Vol] 15.0 mg/dL Normal 7.0-18.0 [facility] Comment on above: Performed By: #### C BC #### [facility] [address] [place], [place] [address] Dr. Jeimy Tenorio Urea nitrogen/Creatinine [Mass ratio] 15.6 mg/mg Normal [facility] Comment on above: Performed By: #### C BC #### [facility] [address] [address] [address] Jeimy Tenorio [facility] 10-30-2021 Albumin [Mass/Vol] 4.3 g/dL Normal 3.6-5.1 [facility] Comment on above: Performed By: #### 7 , 7599, 21396 #### [facility] [place] [address] [employer] Supervisor: Yash Campuzano MD Albumin/Globulin [Mass ratio] 1.3 {ratio} Normal 1.0-2.5 [facility] Comment on above: Performed By: #### 7 , 7599, 39118 #### [facility] [place] [address] [employer] Supervisor: Yash Campuzano MD ALP [Catalytic activity/Vol] 152 U/L High 35-144 [facility] Comment on above: Performed By: #### 7 , 7599, 91104 #### [facility] [place] [address] [employer] Supervisor: Yash Campuzano MD ALT [Catalytic activity/Vol] 30 U/L Normal 9-46 [facility] Comment on above: Performed By: #### 7 , 7599, 82038 #### [facility] [place] [address] [employer] Supervisor: Yash Campuzano MD AST [Catalytic activity/Vol] 26 U/L Normal 10-35 [facility] Comment on above: Performed By: #### 7 13, 7600, 56384 #### [facility] [address], [address] [place] [address] [employer] Supervisor: Yash Campuzano MD Bilirubin [Mass/Vol] 0.4 mg/dL Normal 0.2-1.2 [facility] Comment on above: Performed By: #### 7 13, 0, 88838 #### [facility] of [address], [address] [place] [address] [employer] Supervisor: Yash Campuzano MD BUN/CREATININE RATIO NOT APPLICABLE Normal 6-22 [facility] Comment on above: Performed By: #### 7 13, 7599, 33679 #### [facility] [place] [address] [employer] Supervisor: Yash Campuzano MD Calcium [Mass/Vol] 8.8 mg/dL Normal 8.6-10.3 [facility] Comment on above: Performed By: #### 7 13, 0, 96543 #### [facility] [place] [address] [employer] Supervisor: Yash Campuzano MD Chloride [Moles/Vol] 104 mmol/L Normal 98-110 [facility] Comment on above: Performed By: #### 7 13, 7599, 06526 #### [facility] [place] [address] [employer] Supervisor: Yash Campuzano MD CO2 [Moles/Vol] 25 mmol/L Normal 20-32 [facility] Comment on above: Performed By: #### 7 13, 7600, 93625 #### [facility] of [place] [address] [employer] Supervisor: Yash Campuzano MD Creatinine [Mass/Vol] 0.76 mg/dL Normal 0.70-1.25 [facility] Comment on above: Result Comment: For patients >49 years of age, the reference limit for Creatinine is approximately 13% higher for people identified as -British. Performed By: #### 7 , 760, 67499 #### [facility] [address], [address] [place] [address] [employer] Supervisor: Yash Campuzano MD eGFR NON-AFR. GABONESE 95 mL/min/1.73m2 Normal > OR = 60 [facility] Comment on above: Performed By: #### 7 13, 0, 08782 #### [facility] of [address], [address] [place] [address] [employer] Supervisor: Yash Campuzano MD GFR/1.73 sq M.predicted among blacks MDRD (S/P/Bld) [Vol rate/Area] 110 mL/min/{1.73_m2} Normal > OR = 60 [facility] Comment on above: Performed By: #### 7 13, 7599, 30680 #### [facility] of [address], [address] [place] [address] [employer] Supervisor: Yash Campuzano MD Globulin (S) [Mass/Vol] 3.2 g/dL Normal 1.9-3.7 [facility] Comment on above: Performed By: #### 7 , 7599, 36246 #### [facility] [address], [address] [place] [address] [employer] Supervisor: Yash Campuzano MD Glucose [Mass/Vol] 103 mg/dL High 65-99 [facility] Comment on above: Result Comment: Fasting reference interval For someone without known diabetes, a glucose value between 100 and 125 mg/dL is consistent with prediabetes and should be confirmed with a follow-up test. Performed By: #### 7 13, 7599, 60571 #### [facility] [address], [address] [place] [address] [employer] Supervisor: Yash Campuzano MD Potassium [Moles/Vol] 4.7 mmol/L Normal 3.5-5.3 [facility] Comment on above: Performed By: #### 7 , 7599, 78057 #### [facility] [address], [address] [place] [address] [employer] Supervisor: Yash Campuzano MD Protein [Mass/Vol] 7.5 g/dL Normal 6.1-8.1 [facility] Comment on above: Performed By: #### 7 13, 0, 31567 #### [facility] [place] [address] [employer] Supervisor: Yash Campuzano MD Sodium [Moles/Vol] 137 mmol/L Normal 135-146 [facility] Comment on above: Performed By: #### 7 13, 0, 48052 #### [facility] [place] [address] [employer] Supervisor: Yash Campuzano MD Urea nitrogen [Mass/Vol] 15 mg/dL Normal 7-25 [facility] Comment on above: Performed By: #### 7 13, 7599, 68824 #### [facility] [place] [address] [employer] Supervisor: Yash Campuzano MD LIPID PANEL, [place] [address] Cholesterol [Mass/Vol] 180 mg/dL Normal <200 [facility] Comment on above: Order Comment: FASTI NG:YES FASTING: YES Performed By: #### 7 13, 0, 93502 #### [facility] [place] [address] [employer] Supervisor: Yash Campuzano MD Cholesterol in HDL [Mass/Vol] 50 mg/dL Normal > OR = 40 [facility] Comment on above: Order Comment: FASTI NG:YES FASTING: YES Performed By: #### 7 13, 0, 86083 #### [facility] of [place] [address] [employer] Supervisor: Yash Campuzano MD Cholesterol in LDL [Mass/Vol] [...] LDL-C. Gennaro SS et al. KO. 2013;310(19): 9723-6895 (http://education.[employer]/faq/QYB608) Performed By: #### 7 , 7600, 45323 #### [facility] [address], [address] [place] [address] [employer] Supervisor: Yash Campuzano MD Cholesterol.total/Ch olesterol in HDL [Mass ratio] 3.6 {ratio} Normal <5.0 [facility] Comment on above: Order Comment: FASTI NG:YES FASTING: YES Performed By: #### 7 , 0370, 47802 #### [facility] [address], [address] [place] [address] [employer] Supervisor: Yash Campuzano MD NON HDL CHOLESTEROL 130 mg/dL (calc) High <130 [facility] Comment on above: Order Comment: FASTI NG:YES FASTING: YES Result Comment: For patients with diabetes plus 1 major ASCVD risk factor, treating to a non-HDL-C goal of <100 mg/dL (LDL-C of <70 mg/dL) is considered a therapeutic option. Performed By: #### 7 , 577, 49456 #### [facility] [place] [address] [employer] Supervisor: Yash Campuzano MD Triglyceride [Mass/Vol] 280 mg/dL High <150 [facility] Comment on above: Order Comment: FASTI NG:YES FASTING: YES Result Comment: If a non-fasting specimen was collected, consider repeat triglyceride testing on a fasting specimen if clinically indicated. Marquise et al. J. of Clin. Lipidol. 2015;9:129-169. Performed By: #### 7 , 0080, 22441 #### [facility] [address], [address] [place] [address] [employer] Supervisor: Yash Campuzano MD PHENYTOINon 10-30-2021 Phenytoin [Mass/Vol] 18.9 ug/mL Normal 10.0-20.0 [facility] Comment on above: Performed By: #### 7 13, 7600, 05257 #### [facility] of [place] [address] [employer] Supervisor: Yahs Campuzano MD CBC (INCLUDES DIFF/PLT)on Basophils (Bld) [#/Vol] 0.071 10*3/uL Normal 0-200 [facility] Comment on above: Performed By: #### 7 13, 7599, 6399 #### [facility] of [address], [address] [place] [address] [employer] Supervisor: Yash Campuzano MD Basophils/100 WBC (Bld) 1.2 % Normal [facility] Comment on above: Performed By: #### 7 13, 760, 6399 #### [facility] [place] [address] [employer] Supervisor: Yash Campuzano MD Eosinophils (Bld) [#/Vol] 0.277 10*3/uL Normal 15-500 [facility] Comment on above: Performed By: #### 7 13, 7599, 6399 #### [facility] [place] [address] [employer] Supervisor: Yash Campuzano MD Eosinophils/100 WBC (Bld) 4.7 % Normal [facility] Comment on above: Performed By: #### 7 13, 7599, 6399 #### [facility] [place] [address] [employer] Supervisor: Yash Campuzano MD Erythrocyte distribution width (RBC) [Ratio] 12.8 % Normal 11.0-15.0 [facility] Comment on above: Performed By: #### 7 13, 760, 6399 #### [facility] [place] [address] [employer] Supervisor: Yash Campuzano MD Hematocrit (Bld) [Volume fraction] 42.1 % Normal 38.5-50.0 [facility] Comment on above: Performed By: #### 7 13, 760, 6399 #### [facility] of [address], [address] [place] [address] [employer] Supervisor: Yash Campuzano MD Hemoglobin (Bld) [Mass/Vol] 14.9 g/dL Normal 13.2-17.1 [facility] Comment on above: Performed By: #### 7 , 7599, 6399 #### [facility] of [address], [address] [place] [address] [employer] Supervisor: Yash Campuzano MD Lymphocytes (Bld) [#/Vol] 1.068 10*3/uL Normal 850-3900 [facility] Comment on above: Performed By: #### 7 , 7599, 6399 #### [facility] [place] [address] [employer] Supervisor: Yash Campuzano MD Lymphocytes/100 WBC (Bld) 18.1 % Normal [facility] Comment on above: Performed By: #### 7 , 7599, 6399 #### [facility] [place] [address] [employer] Supervisor: Yash Campuzano MD MCH (RBC) [Entitic mass] 32.9 pg Normal 27.0-33.0 [facility] Comment on above: Performed By: #### 7 , 7599, 6399 #### [facility] [place] [address] [employer] Supervisor: Yash Campuzano MD MCHC (RBC) [Mass/Vol] 35.4 g/dL Normal 32.0-36.0 [facility] Comment on above: Performed By: #### 7 , 7599, 6399 #### [facility] [place] [address] [employer] Supervisor: Yash Campuzano MD MCV (RBC) [Entitic vol] 92.9 fL Normal 80.0-100.0 [facility] Comment on above: Performed By: #### 7 , 7599, 6399 #### [facility] of [address] [place] [address] [employer] Supervisor: Yash Campuzano MD Monocytes (Bld) [#/Vol] 0.531 10*3/uL Normal 200-950 [facility] Comment on above: Performed By: #### 7 13, 760, 6399 #### [facility] of [address], [address] [place] [address] [employer] Supervisor: Yash Campuzano MD Monocytes/100 WBC (Bld) 9.0 % Normal [facility] Comment on above: Performed By: #### 7 13, 7599, 6399 #### [facility] [place] [address] [employer] Supervisor: Yash Campuzano MD Neutrophils (Bld) [#/Vol] 3.953 10*3/uL Normal 0483-4557 [facility] Comment on above: Performed By: #### 7 13, 7599, 6399 #### [facility] of [address], [address] [place] [address] [employer] Supervisor: Yash Campuzano MD Neutrophils/100 WBC (Bld) 67 % Normal [facility] Comment on above: Performed By: #### 7 13, 7599, 6399 #### [facility] [place] [address] [employer] Supervisor: Yash Campuzano MD Platelet mean volume (Bld) [Entitic vol] 11.0 fL Normal 7.5-12.5 [facility] Comment on above: Performed By: #### 7 13, 7599, 6399 #### [facility] of [address], [address] [place] [address] [employer] Supervisor: Yash Campuzano MD Platelets (Bld) [#/Vol] 200 10*3/uL Normal 140-400 [facility] Comment on above: Performed By: #### 7 13, 760, 6399 #### [facility] of [address], [address] [place] [address] [employer] Supervisor: Yash Campuzano MD RBC (Bld) [#/Vol] 4.53 10*6/uL Normal 4.20-5.80 [facility] Comment on above: Performed By: #### 7 13, 7600, 6399 #### [facility] [address], [address] [place] [address] [employer] Supervisor: Yash Campuzano MD WBC (Bld) [#/Vol] 5.9 10*3/uL Normal 3.8-10.8 [facility] Comment on above: Performed By: #### 7 13, 7600, 6399 #### [facility] [address], [address] [place] [address] [employer] Supervisor: Yash Campuzano MD LIPID PANEL, [place] [address] Cholesterol [Mass/Vol] 218 mg/dL High <200 [facility] Comment on above: Order Comment: FASTI NG:YES FASTING: YES Performed By: #### 7 13, 7600, 6399 #### [facility] [address], [address] [place] [address] [employer] Supervisor: Yash Campuzano MD Cholesterol in HDL [Mass/Vol] 55 mg/dL Normal > OR = 40 [facility] Comment on above: Order Comment: FASTI NG:YES FASTING: YES Performed By: #### 7 13, 7600, 6399 #### [facility] [place] [address] [employer] Supervisor: Yash Campuzano MD Cholesterol in LDL [Mass/Vol] [...] LDL-C. Gennaro ALMANZAR et al. KO. 2013;310(19): 6802-4899 (http://education.[employer]/faq/NUR951) Performed By: #### 7 13, 7600, 3939 #### [facility] [address], [address] [place] [address] [employer] Supervisor: Yash Campuzano MD Cholesterol.total/Ch olesterol in HDL [Mass ratio] 4.0 {ratio} Normal <5.0 [facility] Comment on above: Order Comment: FASTI NG:YES FASTING: YES Performed By: #### 7 , 7599, 1089 #### [facility] [address], [address] [place] [address] [employer] Cle[employer] Supervisor: Yash Campuzano MD NON HDL CHOLESTEROL 163 mg/dL (calc) High <130 [facility] Comment on above: Order Comment: FASTI NG:YES FASTING: YES Result Comment: For patients with diabetes plus 1 major ASCVD risk factor, treating to a non-HDL-C goal of <100 mg/dL (LDL-C of <70 mg/dL) is considered a therapeutic option. Performed By: #### 7 , 7599, 9081 #### [facility] [address], [address] [place] [address] [employer] Supervisor: Yash Campuzano MD Triglyceride [Mass/Vol] 200 mg/dL High <150 [facility] Comment on above: Order Comment: FASTI NG:YES FASTING: YES Result Comment: If a non-fasting specimen was collected, consider repeat triglyceride testing on a fasting specimen if clinically indicated. Marquise et al. J. of Clin. Lipidol. 2015;9:129-169. Performed By: #### 7 , 7599, 2107 #### [facility] [address], [address] [place] [address] [employer] Supervisor: Yash Campuzano MD PHENYTOINon 04-18-2021 Phenytoin [Mass/Vol] 25.0 ug/mL High 10.0-20.0 [facility] Comment on above: Performed By: #### 7 , 604, 6216 #### [facility] [address], [address] [place] [address] [employer] Cle[employer] Supervisor: Yash Campuzano MD APTTon 11-20-2020 aPTT Coag [...] THIS PURPOSE. Performed By: #### 5 6101, 39261 ####[facility] BNP EDon 11-20-2020 Natriuretic peptide B (Bld) [Mass/Vol] 111 pg/mL High 0-100 [facility] Comment on above: Result Comment: Give n the appropriate clinical setting a BNP result of >100 pg/mL indicates congestive heart failure. Performed By: #### 3 0935 #### [facility] [address] CBC W/DIFFon 11-20-2020 ABS IMM GRANS 0.0 10*3/uL Normal 0.0-0.2 [facility] Comment on above: Performed By: #### 5 0103 ####[facility] [address] ABS NEUTROPHILS 3.9 10*3/uL Normal 1.6-7.[address] [facility] Comment on above: Performed By: #### 5 0103 ####[facility] [place] [address], [facility] Basophils (Bld) [#/Vol] 0.1 10*3/uL Normal 0.0-0.2 The [facility] Comment on above: Performed By: #### 5 0103 ####[facility] [place] [address], [facility] Basophils/100 WBC (Bld) 1.0 % Normal 0.0-1.0 The [facility] Comment on above: Performed By: #### 5 0103 ####[facility] [address] Eosinophils (Bld) [#/Vol] 0.3 10*3/uL Normal 0.0-0.5 The [facility] Comment on above: Performed By: #### 5 0103 ####[facility] [facility].[address] Eosinophils/100 WBC (Bld) 5.1 % Normal 0.0-6.0 The [facility] Comment on above: Performed By: #### 5 3 ####[place] [id number] [address] Erythrocyte distribution width (RBC) [Ratio] 13.1 % Normal 11.5-15.0 The [facility] Comment on above: Performed By: #### 3 ####[facility] [address] Hematocrit (Bld) [Volume fraction] 45.4 % Normal 39.0-50.0 The [facility] Comment on above: Performed By: #### 5 3 ####[facility] [address] Hemoglobin (Bld) [Mass/Vol] 14.8 g/dL Normal 13.0-17.0 The [facility] Comment on above: Performed By: #### 5 3 ####[facility] [address] IMMATURE GRANS 0.3 % Normal 0.0-1.0 [facility] Comment on above: Performed By: #### 3 ####[address] Lymphocytes (Bld) [#/Vol] 1.0 10*3/uL Low 1.2-4.0 The [facility] Comment on above: Performed By: #### 5 0103 ####[facility] [facility].[address] Lymphocytes/100 WBC (Bld) 17.5 % Low 20.0-45.0 The [facility] Comment on above: Performed By: #### 5 0103 ####[facility] [facility].[address] MCH (RBC) [Entitic mass] 32.5 pg Normal 27.0-33.0 The [facility] Comment on above: Performed By: #### 5 0103 ####[facility] [address] MCHC (RBC) [Mass/Vol] 32.6 g/dL Normal 32.0-35.0 The [facility] Comment on above: Performed By: #### 5 0103 ####[facility] MCV (RBC) [Entitic vol] 99.6 fL High 82.0-98.0 The [facility] Comment on above: Performed By: #### 5 3 ####[facility] Monocytes (Bld) [#/Vol] 0.6 10*3/uL Normal 0.1-1.0 The [facility] Comment on above: Performed By: #### 3 ####[facility] [address] MONOS 9.4 % Normal 5.0-12.0 The [facility] Comment on above: Performed By: #### 5 3 ####[facility] [place] [address], [facility] Neutrophils/100 WBC (Bld) 66.7 % Normal 40.0-72.0 The [facility] Comment on above: Performed By: #### 5 0103 ####[facility] Nucleated RBC/100 WBC (Bld) [Ratio] 0 % Normal 0-0 The [facility] Comment on above: Performed By: #### 5 0103 ####[facility] PLAT CNT 175 10*3/uL Normal 150-400 The [facility] Comment on above: Performed By: #### 5 0103 ####[facility] RBC (Bld) [#/Vol] 4.56 10*6/uL Normal 4.20-5.70 The [facility] Comment on above: Performed By: #### 5 0103 ####[facility] WBC (Bld) [#/Vol] 5.88 10*3/uL Normal 4.00-10.60 [facility] Comment on above: Performed By: #### 5 0103 ####[facility] [address] COMP METABOLIC PANELon 11-20 Albumin [Mass/Vol] 4.0 g/dL Normal 3.5-5.7 [facility] Comment on above: Performed By: #### 0 0121, 29128, 07314, 56524 #### [facility] [address] [facility]. [address] ALKALINE PHOSPH 130 IU/L High 34-104 [facility] Comment on above: Performed By: #### 0 0121, 67476, 26670, 93493 #### [facility] [address] [place] [address], [place] ALT [Catalytic activity/Vol] 18 U/L Normal 7-52 The [facility] Comment on above: Performed By: #### 0 0121, 11338, 59912, 62715 #### [facility] [address] [place] [address], [place] AST [Catalytic activity/Vol] 19 U/L Normal 13-39 The [facility] Comment on above: Performed By: #### 0 0121, 34015, 66859, 20818 #### [facility] [address] [place] [address], [place] Bilirubin [Mass/Vol] 0.4 mg/dL Normal 0.3-1.0 The [facility] Comment on above: Performed By: #### 0 0121, 58201, 92983, 77126 #### [facility] [address] [place] [address], [place] Calcium [Mass/Vol] 9.0 mg/dL Normal 8.6-10.3 [facility] Comment on above: Performed By: #### 0 0121, 86392, 98840, 87758 #### [facility] [address] [place] [address], [place] Chloride [Moles/Vol] 103 mmol/L Normal 98-107 The [facility] Comment on above: Performed By: #### 0 0121, 82210, 41015, 82190 #### [facility] [address] [place] [address], [place] CO2 [Moles/Vol] 28 mmol/L Normal 21-31 [facility] Comment on above: Performed By: #### 0 0121, 37620, 47338, 98891 #### [facility] [address] [place] [address], [place] Creatinine [Mass/Vol] 0.77 mg/dL Normal 0.70-1.30 The [facility] Comment on above: Performed By: #### 0 0121, 97488, 74836, 52491 #### [facility] [address] [place] [address], [place] GFR/1.73 sq M.predicted among blacks MDRD (S/P/Bld) [Vol rate/Area] mL/min/{1.73_m2} Normal >60 The [facility] Comment on above: Performed By: #### 0 0121, 16005, 51203, 10709 #### [facility] [address] [place] [address], [place] GFR/1.73 sq M.predicted among non-blacks MDRD (S/P/Bld) [Vol rate/Area] mL/min/{1.73_m2} Normal >60 The [facility] Comment on above: Performed By: #### 0 0121, 54692, 14142, 69564 #### [facility] [address] [place] [address], [place] Glucose [Mass/Vol] 88 mg/dL Normal 70-100 The [facility] Comment on above: Performed By: #### 0 0121, 16367, 43642, 32034 #### [facility] [address] [place] [address], [place] Potassium [Moles/Vol] 4.9 mmol/L Normal 3.5-5.1 The [facility] Comment on above: Performed By: #### 0 0121, 65132, 61473, 64802 #### [facility] [address] [place] [address], [place] Protein [Mass/Vol] 7.3 g/dL Normal 6.0-8.3 [facility] Comment on above: Performed By: #### 0 0121, 95719, 13699, 39553 #### [facility] [address] [place] [address], [place] Sodium [Moles/Vol] 138 mmol/L Normal 136-145 [facility] Comment on above: Performed By: #### 0 0121, 90887, 88418, 44826 #### [facility] [address] [facility]. [place], [place] [address] [place] [address] Urea nitrogen [Mass/Vol] 15 mg/dL Normal 7-25 The [facility] Comment on above: Performed By: #### 0 0121, 46825, 58130, 09427 #### [facility] [address] [facility] [place] [place] [address], [facility] CTA HEADon 11-20-2020 CTA HEAD [facility] Department of Radiology [address] [place] [id number] Patient Name: NAZARIO CORTES : 1955 Sex: M Age: Race: White Pt. Location: [facility] Patient Status: E Ordered Date: [...] stenosis of the major vessels of the [place]. origin of bilateral posterior cerebral arteries. IMPRESSION: Normal CTA of the brain. All CT scans at this facility use dose modulation, iterative reconstruction, and/or weight based dosing when appropriate to reduce radiation dose to as low as reasonably achievable. Electronically signed: Dhaval Ghotra. Transcribed by: [email or web address], User Resident: Electronically Signed by: DHAVAL GHOTRA @ 11/20/2020 12:58 PM Normal The [facility] Comment on above: Order Comment: Bleed CTA NECKon 11-20-2020 CTA NECK [facility] Department of Radiology [address] [place] [id number] Patient Name: NAZARIO CORTES : 1955 Sex: M Age: Race: White Pt. Location: [facility] Patient Status: E Ordered Date: [...] viewed on a separate workstation. The [place] Symptomatic Carotid Endarterectomy Trial (NASCET) method for [...] achievable Electronically signed: Dhaval Ghotra. Transcribed by: [email or web address], User Resident: Electronically Signed by: DHAVAL GHOTRA @ 11/20/2020 12:57 PM Normal The [facility] DIRECT BILIon 11-20-2020 Bilirubin.direct [Mass/Vol] 0.1 mg/dL Normal 0.0-0.2 The [facility] Comment on above: Order Comment: Liver Battery conflicts with Comprehensive Metabolic Panel. Liver Battery canceled and Direct Bilirubin added. Performed By: #### 0 0121, 44815, 36501, 94925 #### [facility] [address] [facility]. [address] LIPASE BLOODon 11-20-2020 LIPASE 27 Units/L Normal 11-82 The [facility] Comment on above: Performed By: #### 0 0121, 74212, 10437, 54761 #### [facility] [address] [facility]. [address] POC SARS COV2 ANTIGEN NEGATI VEon 11-20-2020 POC SARS COV2 ANTIGEN N Negative Normal NEGATIVE The [facility] Comment on above: Result Comment: Test performed on [employer] System for rapid detection of SARS-CoV-2. Negative [...] management. Performed By: #### 3 1919 #### [address] PORTABLE CHEST 1 VIEWon 10-23 PORTABLE CHEST 1 VIEW [facility] Department of Radiology [address] [place] [id number] Patient Name: NAZARIO CORTES : 1955 Sex: M Age: Race: White Pt. Location: [facility] Patient Status: E Ordered Date: [...] reports Electronically signed: Dhaval Ghotra. Transcribed by: [email or web address], User Resident: JESSENIA ALFORD Electronically Signed by: DHAVAL GHOTRA @ 11/20/2020 12:32 PM I personally read this/these film(s) with this resident Normal The [facility] Comment on above: Order Comment: evalu ate for Pneumonia PROTHROMBIN TIMEon 0 INR Coag (PPP) [Relative time] 0.95 {INR} Normal 0.91-1.16 [facility] Comment on above: Result Comment: ACCC P [...] RANGE. CHEST 1995;108:231S-246S. Performed By: #### 5 3020, 11160 ####[facility] [place] [address], [facility] PT Coag (PPP) [Time] 12.7 s Normal 12.3-14.8 The [facility] Comment on above: Result Comment: ALL RESULTS MUST BE INTERPRETED WITH RESPECT TO BLOOD DRAWING ARTIFACT OR DILUTION ERROR OF ANTICOAGULANT AT THE TIME OF SAMPLING. Performed By: #### 5 6101, 13411 ####[facility] [address] TROPONIN-Ion 11-20-2020 Troponin I.cardiac [Mass/Vol] 0.00 ng/mL Normal 0.00-0.04 The [facility] Comment on above: Order Comment: No: D o not add to previous draw Result Comment: REFE RENCE RANGES: 0.00 - 0.14 ng/ml NEGATIVE 0.15 - 0.25 ng/ml INDETERMINATE > 0.25 ng/ml INDICATIVE OF AN M.I. Performed By: #### 3 5200 #### [facility] [address] Troponin I.cardiac [Mass/Vol] 0.00 ng/mL Normal 0.00-0.04 The [facility] Comment on above: Result Comment: REFE RENCE RANGES: 0.00 - 0.14 ng/ml NEGATIVE 0.15 - 0.25 ng/ml INDETERMINATE > 0.25 ng/ml INDICATIVE OF AN M.I. Performed By: #### 0 0121, 39682, 15057, 06013 #### [facility] [address] Vital Signs Date Time Vital Sign Value Performing Clinician Facility 10-25-2024 15:32-0500 Body height 185.4 cm Jignesh Gonsalez MD Work Phone: [facility] 10-25-2024 15:32-0500 Body mass index (BMI) [Ratio] 40.9 kg/m2 Jignesh Gonsalez MD Work Phone: [facility] 10-25-2024 15:32-0500 Body temperature 97.5 [degF] Jignesh Gonsalez MD Work Phone: [facility] 10-25-2024 15:32-0500 Body weight 140.62 kg Jignesh Gonsalez MD Work Phone: [facility] 10-25-2024 15:32-0500 Diastolic blood pressure 70 mm[Hg] Jignesh Gonsalez MD Work Phone: [facility] 10-25-2024 15:32-0500 Heart rate 87 /min Jignesh Gonsalez MD Work Phone: [facility] 10-25-2024 15:32-0500 Respiratory rate 22 /min Jignesh Gonsalez MD Work Phone: [facility] 10-25-2024 15:32-0500 SaO2% (BldA) [Mass fraction] 90 % Jignesh Gonsalez MD Work Phone: [facility] 10-25-2024 15:32-0500 Systolic blood pressure 150 mm[Hg] Jignesh Gonsalez MD Work Phone: [facility] 09-07-2024 14:54-0400 Body height 185.42 cm MD Jignesh Gonsalez Work Phone: [facility] 09-07-2024 14:54-0400 Body mass index (BMI) [Ratio] 39.2 kg/m2 MD Jignesh Gonsalez Work Phone: [facility] 09-07-2024 14:54-0400 Body temperature 96.8 [degF] MD Jignesh Gonsalez Work Phone: [facility] 09-07-2024 14:54-0400 Body weight 134.94 kg MD Jignesh Gonsalez Work Phone: [facility] 09-07-2024 14:54-0400 Diastolic blood pressure 78 mm[Hg] MD Jignesh Gonsalez Work Phone: [facility] 09-07-2024 14:54-0400 Heart rate 93 /min MD Jignesh Gonsalez Work Phone: [facility] 09-07-2024 14:54-0400 Respiratory rate 20 /min MD Jignesh Gonsalez Work Phone: [facility] 09-07-2024 14:54-0400 SaO2% (BldA) [Mass fraction] 94 % MD Jignesh Gonsalez Work Phone: [facility] 09-07-2024 14:54-0400 Systolic blood pressure 119 mm[Hg] MD Jignesh Gonsalez Work Phone: [facility] 08-16-2024 10:34-0400 Body height 185.42 cm [facility] 08-16-2024 10:34-0400 Body mass index (BMI) [Ratio] 39 kg/m2 [facility] 08-16-2024 10:34-0400 Body temperature 96.8 [degF] [facility] 08-16-2024 10:34-0400 Body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 Goals [...] THE PRIMARY CLINICAL RECORDS. [facility] [facility]. provides no warranty or guarantee of the accuracy or completeness of information in this document.
--- NOTE | 2024-11-11 19:20 | XR_ITS ---
The [address] [address] Patient Name: GÓMEZ CORTES MRN: [id number] date: 1955 Sex: M Assigned Patient Location: ER Current Patient Location: MRI Accession/Order Number: [id number] Exam Date: 11/11/2024 19:22 Report Date: 11/11/2024 21:33 At the request of: RAMON MATTHEW Procedure: XR chest 1V EXAM: XR chest 1V HISTORY: CP COMPARISON: Chest x-ray 05/24/[address] chest 02/19/2024. TECHNIQUE: AP semiupright chest x-ray. FINDINGS: Increasing density right lower chest obliterates the diaphragm and costophrenic angle. Consistent with developing infiltrate in the lower lobe, pleural effusion or both. Follow-up warranted. Surgical clips project over the right chest unchanged. Left lung is clear and unchanged. Heart size is prominent accentuated by magnification stable. No left effusion seen. No pneumothorax] no pneumothorax. XR/XR chest 1V IMPRESSION: Increasing density right lower chest, question developing pleural effusion, infiltrate in the lower lobe or both. Follow-up recommended Electronically authenticated by: ANSELMO ARIZA Date: 11/11/2024 21:33
--- NOTE | 2024-11-11 19:20 | ECG_ITS ---
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
--- NOTE | 2024-11-11 19:21 | ED.GENADUL1 ---
HPI HPI - General Adult General Chief complaint: Extremity Problem, Nontraumatic Stated complaint: PAIN, CRAMPING, REDNESS AND SWELLING Time Seen by Provider: 11/11/24 19:12 History of Present Illness HPI narrative: 69-year-old male presents to the emergency department for chief complaint of right knee pain. This appears to be an ongoing issue. It is not clear to me how long this has been an issue but he seen his family physician about it and is scheduled for an MRI early next year. He was here few days ago and had an x-ray and was discharged home. He states he still has right knee pain. He also states that about 2 hours ago he had 5 minutes of chest pain which has now resolved and has not returned. It went away before he could take a nitroglycerin. Related Data Home Medications ?Medication ?Instructions ?Recorded ?Confirmed atorvastatin 10 mg tablet 10 mg PO .hs 05/12/23 11/11/24 citalopram 40 mg tablet 40 mg PO DAILY 05/12/23 11/11/24 meclizine 25 mg tablet 25 mg PO QID PRN dizziness 05/12/23 11/11/24 phenobarbital 32.4 mg tablet 32.4 mg PO Q12H 05/12/23 11/11/24 phenytoin sodium extended 100 mg 200 mg PO TID 05/12/23 11/11/24 capsule furosemide 40 mg tablet 40 mg PO DAILY PRN edema 05/24/24 11/11/24 nitroglycerin 0.3 mg sublingual 0.3 mg sublingual Q5M PRN chest 05/24/24 11/11/24 tablet pain potassium chloride 20 mEq 20 meq PO DAILY PRN hypokalemia 05/24/24 11/11/24 tablet,extended release Previous Rx's ?Medication ?Instructions ?Recorded hydrocodone 5 mg-acetaminophen 325 1 tab PO Q6H PRN pain 3 days #12 02/19/24 mg tablet tabs Allergies Allergy/AdvReac Type Severity Reaction Status Date / Time oxycodone (From OxyContin) Allergy Severe Anaphylaxis Verified 11/11/24 19:30 gabapentin Allergy Unknown Unknown Verified 11/11/24 19:30 phenytoin (From Dilantin) AdvReac Severe Dizziness Verified 11/11/24 19:30 Opioid HPI Opioid Management Most Recent Opioid Data: Last Pain Scale 4 11/11/24 21:05 11/11/24 Last ED Pain Assessment 11/11/24 21:05 Review of Systems ROS Narrative A ten point review of systems is negative except as noted above. PFSH PFSH Medical History (Updated 11/11/24 @ 21:55 by Richard Washington MD) CAD, multiple vessel ?I25.10 - Atherosclerotic heart disease of [place] coronary artery without angina pectoris (ICD-10) 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 - Malignant neoplasm of mediastinum, part unspecified (ICD-10) Bladder cancer ?C67.9 - Malignant neoplasm of bladder, unspecified (ICD-10) HLD (hyperlipidemia) ?E78.5 - Hyperlipidemia, unspecified (ICD-10) Chest pain ?R07.9 - Chest pain, unspecified (ICD-10) Family History (Updated 12/31/23 @ 12:13 by Shaikh Florentin MD) Father Family history of myocardial infarction Sister Family history of cancer Social History Smoking status: Former smoker Highest level of school completed/degree received: Associate degree: occupational, technical, vocational program Little interest or pleasure in doing things: not at all Feeling down, depressed, or hopeless: not at all Gender Identity: male Exam Narrative Exam Narrative: Nurses note and vital signs reviewed and patient is not hypoxic. General: The patient appears well and in no apparent distress. Patient is resting comfortably on cart. Skin: Warm, dry, no pallor noted. There is no rash noted. Head: Normocephalic, atraumatic Eye: Normal conjunctiva, no drainage Ears, Nose, Mouth, and Throat: oral mucosa is moist. Nares patent. Cardiovascular: Regular Rate and Rhythm Respiratory: Patient is in no distress, no accessory muscle use, lungs are clear to auscultation, no wheezing, rales or rhonchi Back: non-tender GI: Soft and nontender Musculoskeletal: The right knee is examined. There is no erythema or increase in temperature to touch. No bruising or rash. No calf tenderness or ankle edema. The knee joint is stable Neurological: A&O, normal speech Psychiatric: Cooperative Constitutional Vital Signs, click to edit/add: Last Vital Signs Temp 98 F 11/11/24 19:23 Pulse 77 11/11/24 21:00 Resp 17 11/11/24 21:00 BP 157/90 H 11/11/24 21:00 Pulse Ox 96 11/11/24 21:00 O2 Del Method Room Air 11/11/24 19:23 Course Vital Signs Vital signs: Vital Signs Pulse Rate 76 11/11/24 19:22 Respiratory Rate 17 11/11/24 19:22 Pulse Oximetry 95 11/11/24 19:22 Temperature 98 F 11/11/24 19:23 Pulse Rate 77 11/11/24 21:00 Respiratory Rate 17 11/11/24 21:00 Blood Pressure 157/90 H 11/11/24 21:00 Pulse Oximetry 96 11/11/24 21:00 Oxygen Delivery Method Room Air 11/11/24 19:23 Medical Decision Making MDM Narrative Medical decision making narrative: X-ray from a few days ago was reviewed and showed osteoarthritis, no effusion. His laboratory analysis including troponin is negative tonight. Small possible effusion is noted on his chest x-ray and this was discussed with the patient. He is feeling improved with the Toradol and he has pain medication at home. He has an orthopedist that he will follow-up with and will call the office in the morning. Treatment diagnosis and follow-up were discussed with the patient. Differential Diagnosis Differential Diagnosis: Arthritis, knee effusion, internal derangement Lab Data Lab results reviewed: Yes I reviewed the patient's lab results Labs: Lab Results 11/11/24 Range/Units 19:15 WBC 7.3 (4.0-11.0) 10^3/uL RBC 4.31 L (4.70-6.10) 10^6/uL Hgb 14.0 (14.0-18.0) g/dL Hct 42.9 (42.0-54.0) % MCV 99.5 H (80.0-94.0) fL MCH 32.5 (25.9-34.0) pg MCHC 32.6 (29.9-35.2) g/dL RDW 13.1 (11.0-15.0) % Plt Count 179 (150-450) 10^3/uL MPV 10.0 (9.5-13.5) fL Neut % (Auto) 60.1 (43.0-75.0) % Lymph % (Auto) 19.9 L (20.5-60.0) % [place] % (Auto) 11.6 (1.7-12.0) % Eos % (Auto) 7.0 (0.9-7.0) % Baso % (Auto) 1.0 (0.2-2.0) % Neut # (Auto) 4.4 (1.4-6.5) 10^3/uL Lymph # (Auto) 1.4 (1.2-3.8) 10^3/uL [place] # (Auto) 0.8 (0.3-0.8) 10^3/uL Eos # (Auto) 0.5 (0.0-0.7) 10^3/uL Baso # (Auto) 0.1 (0.0-0.1) 10^3/uL Abs Immat Gran (auto) 0.03 (0.00-0.03) 10^3/uL Imm/Tot Granulo (auto) 0.4 (0.0-0.5) % Sodium 140 (136-145) mmol/L Potassium 4.4 (3.5-5.1) mmol/L Chloride 105 (98-107) mmol/L Carbon Dioxide 28.1 (21.0-32.0) mmol/L Anion Gap 11.3 BUN 13.0 (7.0-18.0) mg/dL Creatinine 0.91 (0.70-1.30) mg/dL Est GFR ( Amer) >60 (>=60 mL/min/1.73m^2) Est GFR (Non-Af Amer) >60 (>=60 mL/min/1.73m^2) BUN/Creatinine Ratio 14.3 Glucose 104 (74-106) mg/dL Calcium 8.4 L (8.5-10.1) mg/dL Troponin I High Sens 5.0 (4.0-76.1) pg/mL Imaging Data Chest x-ray: Radiologist's impression: ITS Impressions Chest X-Ray 11/11/24 19:20 IMPRESSION: Increasing density right lower chest, question developing pleural effusion, infiltrate in the lower lobe or both. Follow-up recommended Electronically authenticated by: ANSELMO ARIZA Date: 11/11/2024 21:33 ECG Data Attestation: I personally reviewed and interpreted this ECG as follows: (EKG on my interpretation shows normal sinus rhythm with rate of 76 and no acute change.) Discharge Plan Discharge Chief Complaint: Extremity Problem, Nontraumatic Clinical Impression: Knee pain, right Patient Disposition: Home, Self-Care Time of Disposition Decision: 21:55 Condition: Good Mode of Transportation: Private Vehicle Prescriptions / Home Meds: No Action hydrocodone-acetaminophen 5-325 mg tablet 1 tab PO Q6H PRN (Reason: pain) 3 Days Qty: 12 0RF Rx Instructions: M54.5 furosemide 40 mg tablet 40 mg PO DAILY PRN (Reason: edema) nitroglycerin 0.3 mg tablet, sublingual 0.3 mg sublingual Q5M PRN (Reason: chest pain) potassium chloride 20 mEq tablet extended release 20 meq PO DAILY PRN (Reason: hypokalemia) atorvastatin 10 mg tablet 10 mg PO .hs citalopram 40 mg tablet 40 mg PO DAILY meclizine 25 mg tablet 25 mg PO QID PRN (Reason: dizziness) phenobarbital 32.4 mg tablet 32.4 mg PO Q12H phenytoin sodium extended 100 mg capsule 200 mg PO TID Print Language: Welsh Instructions: Knee Pain (ED) Additional Instructions: Follow-up with your orthopedist Referrals: Jignesh Manjarrez MD [Primary Care Provider] - 1 week
[2024-11-11 19:45] LABS: Basophils Absolute Auto 0.1 10^3/uL (0.0-0.1); Eosinophils Absolute Auto 0.5 10^3/uL (0.0-0.7); Hematocrit 42.9 % (42.0-54.0); Immature Granulocytes Abs Auto 0.03 10^3/uL (0.00-0.03); Immature Granulocytes Pct Auto 0.4 % (0.0-0.5); Lymphocytes Absolute Auto 1.4 10^3/uL (1.2-3.8); Lymphocytes Percent Auto 19.9 % (20.5-60.0); Mean Corpuscular HGB Conc 32.6 g/dL (29.9-35.2); Mean Corpuscular Hemoglobin 32.5 pg (25.9-34.0); Mean Corpuscular Volume 99.5 fL (80.0-94.0); Monocytes Absolute Auto 0.8 10^3/uL (0.3-0.8); Monocytes Percent Auto 11.6 % (1.7-12.0); Neutrophils Absolute Auto 4.4 10^3/uL (1.4-6.5); Neutrophils Percent Auto 60.1 % (43.0-75.0); Platelet Count 179 10^3/uL (150-450); Red Blood Count 4.31 10^6/uL (4.70-6.10); Red Cell Distribution Width 13.1 % (11.0-15.0); White Blood Count 7.3 10^3/uL (4.0-11.0)
[2024-11-11 19:57] LABS: Anion Gap 11.3; BUN Creatinine Ratio 14.3; Calcium 8.4 mg/dL (8.5-10.1); Carbon Dioxide 28.1 mmol/L (21.0-32.0); Chloride 105 mmol/L (98-107); Estimated GFR (African America >60 (>=60 mL/min/1.73m^2); Estimated GFR (Non-African Ame >60 (>=60 mL/min/1.73m^2); Glucose 104 mg/dL (74-106); Potassium 4.4 mmol/L (3.5-5.1); Sodium 140 mmol/L (136-145)
[2024-11-11] MEDS: ORPHENADRINE 60 MG/ 2 ML VIAL IV (20:14)
[2024-11-11] MEDS: KETOROLAC TROMETHAMINE 30 MG/ML VIAL IVP (20:14)
== END 2024-11-11 22:30 | disposition home or self-care (01) ==
PROVIDERS: Emergency Provider Emergency Medicine; PCP Family Medicine
DX: M25.561 Pain in right knee (principal); R07.9 Chest pain, unspecified; Z87.891 Personal history of nicotine dependence
CPT/HCPCS: 36415; 71045; 80048; 84484; 85025; 93005; 96374; 96375; 99285; J1885; J2360

== ENCOUNTER 2024-11-27 12:23 | Outpatient (OUT) | payer MEDICARE, MEDICAID, SELFPAY ==
--- NOTE | 2024-11-27 12:31 | MR_ITS ---
The [address] [address] Patient Name: GÓMEZ CORTES MRN: [id number] date: 1955 Sex: M Assigned Patient Location: MRI Current Patient Location: MRI Accession/Order Number: [id number] Exam Date: 11/27/2024 13:00 Report Date: 11/27/2024 14:23 At the request of: ADALID GONSALEZ Procedure: MR knee RT wo con EXAM: MR knee RT wo con REASON FOR EXAM: chronic right knee pain M25.561. TECHNIQUE: Multiplanar, multisequence imaging of the right knee was performed without contrast COMPARISON: Radiographs 11/09/2024. FINDINGS: Laterally, the iliotibial band, fibular collateral ligament, popliteus tendon and biceps tendon are intact. The ACL is intact. There is complex tear of the lateral meniscus with free edge radial tear involving the lateral meniscal body propagating is horizontal undersurface oblique tear into the body posterior horn junction. The tear extends to the peripheral margin of the lateral meniscus. No displaced meniscal fragment identified. Low to intermediate grade chondrosis of the lateral compartment. Medially, the medial collateral ligament is intact. Periligamentous edema is likely reactive. The PCL is intact. The medial meniscus demonstrates free edge fraying of the body posterior horn junction. There is also horizontal undersurface oblique tear of the body posterior horn junction. The root is intact. No meniscal extrusion or displaced meniscal fragment. Intermediate grade chondrosis of the medial compartment. The extensor mechanism is intact. Intermediate grade chondrosis the patellofemoral cartilage. There is moderate bone marrow edema involving the medial tibial plateau with curvilinear T1 and T2 hypointense signal involving the medial tibia. Findings consistent with a nondisplaced high-grade stress fracture. Trace joint effusion. The regional musculature is without muscle strain or tendon tear. MR/MR knee RT wo con IMPRESSION: 1. High-grade nondisplaced stress fracture involving the medial tibia. 2. Medial and lateral meniscal tears. 3. Moderate tricompartmental chondrosis. 4. Trace effusion Electronically authenticated by: KATHARINE DORMAN Date: 11/27/2024 14:23
--- NOTE | 2024-11-27 12:45 | CT_ITS ---
The [address] [address] Patient Name: GÓMEZ CORTES MRN: [id number] date: 1955 Sex: M Assigned Patient Location: MRI Current Patient Location: MRI Accession/Order Number: [id number] Exam Date: 11/27/2024 12:37 Report Date: 11/27/2024 16:03 At the request of: ADALID GONSALEZ Procedure: CT sinus wo con CT SINUSES WITHOUT CONTRAST, 11/27/2024. HISTORY: Chronic sinusitis. COMPARISON: None. TECHNIQUE: Noncontrast axial CT images obtained through the sinuses. Reconstructions obtained in the sagittal and coronal planes. Dose reduction techniques were achieved by using automated exposure control and/or adjustment of mA and/or kV according to patient size and/or use of iterative reconstruction technique. FINDINGS: The maxillary sinuses are clear. Ostiomeatal units are patent. Nasal septum deviates to the right 5 mm. There is nasal septal spurring to the right. Nasal passages are clear. No nasal cavity polyps. Ethmoid air cells are clear. Frontal sinuses are clear. Sphenoid sinuses are clear. No air-fluid levels. The lee of the sinuses are intact. The orbital contents are normal. Prior cataract surgery. Nasopharynx is normal. Patient Appointment Coordinator spaces are normal. CT/CT sinus wo con IMPRESSION: 1. The nasal septum deviates to the right by 5 mm. 2. The paranasal sinuses are clear. Electronically authenticated by: LY FRANKS Date: 11/27/2024 16:03
== END 2024-11-27 12:24 | disposition home or self-care (01) ==
PROVIDERS: PCP Family Medicine; Visit Provider Family Medicine
DX: M25.561 Pain in right knee (principal); G89.29 Other chronic pain; M23.91 Unspecified internal derangement of right knee; J32.9 Chronic sinusitis, unspecified; M84.361A Stress fracture, right tibia, initial encounter for fracture; S83.241A Other tear of medial meniscus, current injury, right knee, initial encounter; S83.281A Other tear of lateral meniscus, current injury, right knee, initial encounter; M25.461 Effusion, right knee
CPT/HCPCS: 70486; 73721

== ENCOUNTER 2024-12-04 14:45 | Outpatient (OUT) | payer MEDICARE, MEDICAID, SELFPAY | END 2024-12-04 14:46 | disposition home or self-care (01) | LOC: PST 14:45 | PROVIDERS: PCP Family Medicine; Visit Provider Surgery | DX: Z01.818 Encounter for other preprocedural examination (principal); Z12.11 Encounter for screening for malignant neoplasm of colon ==

== ENCOUNTER 2024-12-11 07:26 | Day surgery (SDC) | payer MEDICARE, MEDICAID, SELFPAY ==
--- OUTSIDE RECORDS SUMMARY | 2024-12-11 07:29 | XMS_ITS | CCD ---
Author Organization [facility] Team Providers Care Welding Instructor Name Role Phone KARINA JAY Attending Unavailable SELF, REFERRED Referring Unavailable JOSE MCCLOUD Primary Care Unavailable JOHN MEJÍA Admitting Unavailable Alex Bonilla Unavailable Neelam Morris Unavailable AME, DR JOSE Danielson Admitting Unavailable FURLONG, DR JOSE Danielson Attending Unavailable WALLACE, DR JIGNESH Means Primary Care Unavailable FURLONG, DR JOSE Danielson Primary Care Unavailable CARRIE ALZO Consulting Unavailable FAWWAD, TONY H Admitting Unavailable [...] Riggs Unavailable MD Luiz Riggs Attending Provider [phone] MD Jignesh Gonsalez Primary Care Provider JIGNESH GONSALEZ Primary Care Physician Jose Mccloud DO Primary Care Provider Chris CAMARILLO Attending Unavailable JIGNESH GONSALEZ Referring Unavailable Chris CAMARILLO Attending Unavailable MD Jignesh Gonsalez Primary Care Provider [phone] RIDGE Garcia Attending Provider OVITT, CORNELIO Referring Unavailable OVITT, CORNELIO Referring Unavailable NARADIONY ARECHIGAROGERIO Referring Unavailable OVITT, CORNELIO Attending Unavailable TRACIE, CORNELIO Attending Unavailable MD Jignesh Gonsalez Primary Care Provider RIDGE Garcia Attending Provider [phone] Jignesh Gonsalez MD Primary Care Provider [phone] Jignesh Gonsalez Primary Care Unavailable Joslyn Garcia Attending Unavailable Joslyn Garcia Admitting Unavailable Jignesh Gonsalez Primary Care Unavailable Joslyn Garcia Attending Unavailable Joslyn Garcia Admitting Unavailable Yancy Lawson Admitting Unavailable Jignesh Gonsalez Primary Care Unavailable Yancy Lawson Attending Unavailable JIGNESH GONSALEZ Attending Unavailable SHAIKH MOTLEY Attending Unavailable JIGNESH GONSALEZ Attending Unavailable CORNELIO COTTER Attending Unavailable IMELDA THOMPSON Attending Unavailable JIGNESH GONSALEZ Attending Unavailable IMELDA THOMPSON Attending Unavailable IMELDA THOMPSON Referring Unavailable JIGNESH GONSALEZ Attending Unavailable CHARI VELA Attending Unavailable JIGNESH GONSALEZ Attending Unavailable JOSE M REA Attending Unavailable JIGNESH GONSALEZ Referring Unavailable Allergies Allergy Classification Reported Allergen(s) Allergy Type Date of Onset Reaction(s) Facility Anti-Epileptic Agents (2 sources) gabapentin Drug Allergy 4 stomach upset, IV ONLY-Dizzy [facility] Opioid Agonists (1 source) oxyCODONE Drug Allergy 4 Unknown Reaction [facility] (11 sources) gabapentin; Translations: [GABAPENTIN] Drug Allergy 0 stomach upset [facility] Rep[facility] (2 sources) oxyCODONE Drug Allergy 0 [facility] (3 sources) Phenytoin; Translations: [Dilantin] Drug Allergy 0 [facility] (20 sources) gabapentin; Translations: [gabapentin] Drug Allergy 0 Unknown (qualifier value), Unknown [facility] (20 sources) oxyCODONE; Translations: [oxycodone] Drug Allergy 0 Difficulty breathing (finding), Angioedema, Unknown [facility] (11 sources) Phenytoin; Translations: [phenytoin] Drug Allergy 6 Dizziness (finding), Dizziness [facility] (1 source) Phenytoin; Translations: [PHENYTOIN SODIUM EXTENDED] Drug Allergy 6 [facility] Repository (1 source) ALLERGIES NOT ON FILE; Translations: [ALLERGIES NOT ON FILE] Propensity to adverse reactions (disorder) [facility] (1 source) gabapentin Drug Allergy 4 [facility] Repository (1 source) oxyCODONE Drug Allergy 4 [facility] (1 source) Phenytoin Drug Allergy 4 [facility] Medications Current Medications Medication Drug Class(es) Dates Sig (Normalized) Sig (Original) acetaminophen 325 mg / HYDROcodone bitartrate 5 mg oral tablet (20 sources) Opioid Agonist Start: 11-15-2024 End: 11-22-2024 take 1 tablet by mouth four times daily as needed for pain HYDROcodone-acetami nophen ([place]) 5-325 MG tablet Indications: Degenerative lumbar spinal stenosis Take 1 tablet by mouth 4 (four) times a day as needed for severe pain for up to 7 days 28 tablet 11/15/2024 11/22/2024 Active Start: 10-11-2024 End: 11-01-2024 take 1 tablet by mouth four times daily as needed for pain HYDROcodone-acetaminophen ([place]) 5-325 MG tablet Indications: Degenerative lumbar spinal stenosis Take 1 tablet by mouth 4 (four) times a day as needed for severe pain for up to 7 days 28 tablet 10/25/2024 11/01/2024 Active Start: 04-23-2024 take 1 tablet by ambika th four times daily Hydrocodone-Acetaminophen Active 1 TAB P O Four times daily April 23, 2024 12:00am [place] Active take 1 tablet by ambika th [...] 07/15/23 Status: Ordered Atorvastatin Jesus cium Active bisacodyl 5 mg delayed release oral tablet (2 sources) Stimulant Laxative Start: 11-27-2024 take 1 tablet by mouth in the morning bisacodyl (Dulcolax) 5 MG EC tablet Indications: Screening for malignant neoplasm of colon Take 1 tablet (5 mg) by mouth in the morning and 1 tablet (5 mg) before bedtime. Do not crush, chew, or split. Take as detailed on clinic hand out for colonoscopy prep. 4 tablet 11/27/2024 Active cetirizine hydrochloride 10 mg oral tablet (3 sources) Histamine-1 Receptor Antagonist Start: 08-16-2024 take 1 tablet by mouth once daily Cetirizine (Allergy Relief (Cetirizine)) 10 mg tablet Active 10 MG PO daily 14 August 16, 2024 12:00am citalopram 40 mg [...] 2 mg/ml injectable solution (1 source) vit V0-F4-G9-B5- B6 (B-COMPLEX INJECTION) 129-3-935-2-2 mg/mL solution B-Complex 1 QD 0 Active fluticasone propionate 0.05 mg/actuat metered dose nasal spray (13 sources) Corticosteroid Start: 10-25-20 take 2 spray(s) nasal route once daily fluticasone (Flonase) 50 MCG/ACT nasal spray Indications: Chronic rhinosinusitis Administer 2 sprays into each nostril Daily Shake gently. Before first use, prime pump. After use, clean tip and replace cap. 16 g 2 10/25/2024 Active furosemide 40 mg oral tablet (20 sources) Loop Diuretic Start: 04-23-20 take 1 [...] Active meclizine hydrochloride 25 mg oral tablet (20 sources) Antiemetic Start: 04-13-2024 meclizine (Ant ivert) [...] daily Meloxicam Active 7.5 MG PO Daily 15 September 07, 2024 12:00am meloxicam 15 mg tablet,disintegrating 1 tablet 0 Active Meloxicam Not-Ta noa Meloxicam Active methocarbamol 750 mg oral tablet (15 sources) Muscle Relaxant Start: 11-19-2024 take 1 tablet by mouth three times daily as needed for muscle spasms methocarbamol (Robaxin) 750 MG tablet Indications: Chronic pain of right knee TAKE 1 TABLET BY MOUTH THREE TIMES DAILY NEEDED MUSCLE SPASM 42 tablet 11/19/2024 Active Start: 11-09-2024 take 1 tablet by ambika th three times daily as needed for muscle spasms methocarbamol (Robaxin) 750 MG tablet Indications: Chronic pain of right knee Take 1 tablet (750 mg) by mouth 3 (three) times a day as needed for muscle spasms 42 tablet 11/09/2024 Active Start: 09-07-2024 take 750 mg by mouth [...] 0 Active nitroglycerin 0.4 mg sublingual tablet (20 sources) Nitrate Vasodilator Start: 08-09-2024 Nitroglycerin Active [...] 32 mg oral tablet (20 sources) Start: 11-28-2024 take 2 tablets by mouth three times daily PHENobarbital (Luminal) 32.4 MG tablet Indications: Seizure disorder (CMS/HCC) TAKE 2 TABLETS BY MOUTH THREE TIMES DAILY 180 tablet 5 11/28/2024 Active Start: 09-25-2024 End: 11-28-2024 take 2 tablets by mouth three times daily PHENobarbital (Luminal) 32.4 MG tablet Indications: Seizure disorder (CMS/HCC) TAKE 2 TABLETS BY MOUTH THREE TIMES DAILY 180 tablet 1 09/25/2024 11/28/2024 Discontinued Start: 07-18-2024 take 2 tablets by mo ut three times daily PHENobarbital (Luminal) 32.4 MG tablet Indications: Seizure disorder (CMS/HCC) TAKE 2 TABLETS BY MOUTH THREE TIMES DAILY 180 tablet 1 07/18/2024 Active Start: 04-23-2024 take 32.4 mg by mout three times daily Phenobarbital Active 32.4 MG [...] chloride 20 meq extended release oral tablet (20 sources) Start: 06-06-2024 take 1 tablet by [...] gallbladder, unspecified] 04-23-2024 Episodic Cancer of bladder (20 sources) Malignant tumor of urinary bladder; Translations: [...] disease (20 sources) Atherosclerotic heart disease of [place] coronary artery without angina pectoris; Translations: [Coronary [...] 12-27-2022 Episodic Joint disorders and dislocations; trauma-related (18 sources) Derangement of right knee; Translations: [Unspecified internal derangement of right knee] Onset: 08-16-2022 08-16-2022 Chronic Malignant neoplasm without specification of site (8 sources) Extragonadal germinoma; 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, unspecified] Onset: 01-19-1998 08-16-2022 Chronic Mood disorders (20 sources) Chronic depression; Translations: [Chronic depression] Onset: 10-26-2023 04-23-2024 Chronic Osteoarthritis (9 sources) Unspecified osteoarthritis, unspecified site; Translations: [Arthritis of right hip] Onset: 08-16-2022 08-16-2022 Chronic Other aftercare (1 source) 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; Translations: [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 CURRENT USE OF ASPIRIN] Onset: 12-27-2022 Episodic Other aftercare (1 source) Other long-term (current) drug therapy; Translations: [OTH PENITENTIARY CURRENT [...] Onset: 08-25-2022 Chronic Other nervous system disorders (20 sources) Neuropathy; Translations: [Drug-induced polyneuropathy] Onset: 01-28-2020 08-16-2022 Chronic Other nervous system disorders (2 sources) Other chronic pain; Translations: [Other chronic pain] Onset: 08-08-2024 Chronic Other non-traumatic joint disorders (3 sources) Pain in left hip; Translations: [PAIN IN LEFT HIP] Onset: 12-24-2022 Episodic Other non-traumatic joint disorders (6 sources) Pain in elbow; Translations: [Pain in left elbow] 05-15-2024 Episodic Other non-traumatic joint disorders (18 sources) Pain in right knee; Translations: [Right knee pain] Onset: 09-07-2024 09-07-2024 Episodic Other nutritional; endocrine; and metabolic disorders (1 source) Hypocalcemia; Translations: [HYPOCALCEMIA] Onset: 11-07-2022 Chronic Other nutritional; endocrine; and metabolic disorders (1 source) Obesity, unspecified; Translations: [OBESITY UNSPECIFIED] Onset: 10-04-2022 Chronic Other nutritional; endocrine; and metabolic disorders (20 sources) Obesity; Translations: [Obesity, unspecified] Onset: 01-12-2021 08-16-2022 Chronic Other nutritional; endocrine; and metabolic disorders (8 sources) Severe obesity; Translations: [Class 3 severe obesity due to excess calories with serious comorbidity and body mass index (BMI) of 40.0 to 44.9 in adult ([facility])] Onset: 01-12-2021 11-22-2024 Chronic Other upper respiratory disease (2 sources) Allergic rhinitis, unspecified; Translations: [Allergic rhinitis, cause unspecified] 08-16-2024 Chronic Other upper respiratory disease (20 sources) Deviated nasal septum; Translations: [Deviated nasal septum] Onset: 10-26-2023 10-26-2023 Episodic Other upper respiratory infections (16 sources) Chronic sinusitis, unspecified; Translations: [Chronic rhinitis] Onset: 10-25-2024 10-25-2024 Chronic Residual codes; unclassified (1 source) Sleep apnea, unspecified; Translations: [SLEEP APNEA UNSPECIFIED] Onset: 11-07-2022 Chronic Residual codes; unclassified (18 sources) Obstructive sleep apnea syndrome; Translations: [Obstructive [...] Chronic pain of right knee 10-25-2024 Unclassified (3 sources) Chronic rhinosinusitis 10-25-2024 Past or Other Problems Problem Classification Problem Date Documented Date Episodic/Chronic Epilepsy; convulsions (3 sources) Unspecified convulsions; Translations: [Seizure] Onset: 01-19-1975 07-15-2023 Episodic Mood disorders (18 sources) Mood disorders Onset: 11-29-2023 Resolved: 11-22-2024 11-29-2023 Nonspecific chest pain (4 sources) Chest pain, unspecified; Translations: [CHEST PAIN UNSPECIFIED] Onset: 06-12-2022 Episodic Other aftercare (19 sources) Long-term current use of drug therapy; Translations: [Other terminal clerk (current) drug therapy] Onset: 11-29-2023 11-29-2023 Episodic Other aftercare (18 sources) Post-discharge follow-up; Translations: [Encounter for follow-up examination after completed treatment for conditions other than malignant neoplasm] Onset: 01-11-2024 Resolved: 02-21-2024 02-21-2024 Episodic Other aftercare (1 source) Patient encounter status; Translations: [Other long-term (current) drug therapy] Onset: 11-29-2023 11-29-2023 Episodic Other connective tissue disease (4 sources) Pain in right foot; Translations: [PAIN IN RIGHT FOOT] Onset: 09-29-2022 Episodic Other fractures (18 sources) Closed fracture of multiple ribs; Translations: [...] conditions (not mental disorders or infectious disease) (20 sources) Encounter for screening for malignant neoplasm of prostate; Translations: [Other specified abnormal findings of blood chemistry] Onset: 06-22-2022 11-29-2023 Episodic Residual codes; unclassified (18 sources) Bilateral lower limb edema; Translations: [Localized [...] LT KNEE INITIAL] Onset: 08-25-2022 Episodic Syncope (20 sources) Syncope and collapse; Translations: [Syncope and collapse] Onset: 11-07-2022 Resolved: 11-29-2023 Episodic Unclassified (2 sources) Patient encounter status 10-25-2024 Results Test Name Value Interpretation Reference Range Facility No Panel InformationOrdered By: Fay Adhikari on 11-27-2024 [facility] Radiology Study observation (narrative) [facility] XR knee RT 4V*on 10-17-2024 XR knee RT 4V* [facility] [place] [address] XRay Report Signed Patient: Nazario Cortes MR#: [id number] : 1955 Acct:[id number] Age/Sex: 69 / M ADM Date: 10/17/24 Loc: XDUCLY Room: Type: REG CLI Attending Dr: Yancy Lawson PRINTED CIRCUIT BOARD DRAFTER Copies to: Yancy Lawson APRN Ordering Provider: [...] Hoa Lockwood M.D.10/17/2024 2:40 PM Dictation Location: [place] [address] Transcribed By: [facility] 10/17/24 1440 Dictated By: Hoa Lockwood MD 10/17/24 1438 Signed By: 10/17/24 1440 Normal [facility] XR knee RT 4V*on 09-07-2024 XR knee RT 4V* [facility] Main [place] [address] [place] [address] XRay Report Signed Patient: Nazario Cortes Jr MR#: [id number] : 1955 Acct:[id number] Age/Sex: 69 / M ADM Date: 09/07/24 Loc: XDUCLY Room: Type: REG CLI Attending Dr: Joslyn Garcia PRINTED CIRCUIT BOARD DRAFTER Copies to: Joslyn Garcia APRN Ordering Provider: [...] Ching Jr., D.OKellie09/07/2024 4:15 PM Dictation Location: [place] [address] Transcribed By: [facility] 09/07/241614 Dictated By: Bar Ching Jr, DO 09/07/241613 Signed By: 09/07/241614 Normal [facility] Influenza virus A and B and SARS-CoV-2 (COVID-19) RNA panel - Respiratory system specon 08-16-2024 Influenza virus A and B RNA and SARS-CoV-2 (COVID-19) N gene panel ALEX+probe (Resp) Negative [facility] - Microbiology an d Antimicrobial susceptibilityon 08-16-2024 SARS-CoV-2 (COVID-19) RNA ALEX+probe Ql (Unsp spec) Negative [facility] No Panel Informationon 08-16 POC Influenza B (ALEX) Negative [facility] Follow-Upon 08-08-2024 Follow-Up [id number] BaironNazario 1955 M Date Provider Department Center 08/08/2024 CORNELIO NEGRON [facility] SURG [place] Family History Problem Relation Age of Onset Supraventricular tachycardia Mother Stroke Father Kidney cancer Sister Diabetes Sister COPD Brother Family Status - Relation Status Age at Mother Father Sister Brother Level of Service:54523 OR OFFICE/OUTPATIENT ESTABLISHED MOD MDM 30 MIN Reason for Visit and Comments: Follow-up [507284] - Pt is here for a follow up visit for Lumbar Stenosis. Normal [facility] 36on 07-30-2024 36 Talked to patient. Advised [...] given his ongoing issues. Verbalizes understanding. Normal [facility] Telephoneon 07-30-2024 Telephone [id number] Nazario Cortes 1955 M Date Provider Department Center 07/30/2024 CORNELIO NEGRON [facility] [place] Family History Problem Relation Age of Onset Supraventricular tachycardia Mother Stroke Father Kidney cancer Sister Diabetes Sister COPD Brother Family Status - Relation Status Age at Mother Father Sister Brother Normal [facility] MR CERVICAL SPINE W AND WO C ONTRASTon 07-26-2024 MR CERVICAL SPINE W AND WO [...] BOWMAN MD. Not Vldtd Invalid Interpretation Code [facility] XR elbow LT min 3V*on 2023 XR elbow LT min 3V* [facility] Main [place] [address] [place] [id number] XRay Report Signed Patient: Nazario Cortes Jr MR#: [id number] : 1955 Acct:[id number] Age/Sex: 69 / M ADM Date: 05/15/24 Loc: XDUCLY Room: Type: [facility] Attending Dr: Joslyn Garcia PRINTED CIRCUIT BOARD DRAFTER Copies to: Joslyn Garcia APRN Ordering Provider: [...] Zain Fitzpatrick M.D.05/15/2024 4:23 PM Dictation Location: [place] [address] Transcribed By: [facility] 05/15/24 1623 Dictated By: Zain Fitzpatrick DO 05/15/24 1621 Signed By: 05/15/24 1623 Normal [facility] Orders Onlyon 04-11-2024 Orders Only [id number] Nazario Cortes 1955 M Date Provider Department Center 04/11/2024 [id number], HISTORICAL CARD [facility] Family History Problem Relation Age of Onset Supraventricular tachycardia Mother Stroke Father Kidney cancer Sister Diabetes Sister COPD Brother Family Status - Relation Status Age at Mother Father Sister Brother Normal [facility] Consulton 01-05-2024 Consult [id number] BaironNazario 1955 M Date Provider Department Center 01/05/2024 CORNELIO NEGRON [facility] [place] Family History Problem Relation Age of Onset Supraventricular tachycardia Mother Stroke Father Kidney cancer Sister Diabetes Sister COPD Brother Family Status - Relation Status Age at Mother Father Sister Brother Level of Service:51144 OR OFFICE/OUTPATIENT NEW MODERATE MDM 45 MINUTES Reason [...] little relief about 6-7 years ago. Normal [facility] US CAROTID ART BILon 023 [...] by: KELL BLANDON Date: 2023-01-11 08:42 Normal [facility] ECHOCARDIO M/2D COMPLETEon 0 01-07-2023 ECHOCARDIO M/2D COMPLETE Patient: NAZARIO CORTES Exam Date: 01/07/2023 : 1955 Gender:M Ordering : DR JIGNESH GONSALEZ . Admission #: [id number] Family : Order #: [id number] CLICK HERE TO VIEW EXAM ECHOCARDIOGRAM REPORT [...] Smith M.D. on 01/11/2023 at 18:23 Normal [facility] XR ELBOW LT MIN 3 [...] VIDAL FRASER Date: 2022-12-24 20:23 Normal [facility] XR HIP LT 2 3V W PELVISon XR HIP LT 2 3V W PELVIS EXAM: XR HIP LT 2 3V W PELVIS HISTORY: Bone injury COMPARISON: None. TECHNIQUE: 3 views of the left hip FINDINGS: No acute fracture is seen. Joint alignment is normal. Joint spaces are preserved. Soft tissues appear unremarkable. IMPRESSION: No acute fracture or malalignment. Electronically authenticated by: VDIAL FRASER Date: 2022-12-24 20:21 Normal [facility] XR HUMERUS LT MIN 2Von [...] KELL DELANEY Date: 2022-12-24 21:03 Normal [facility] CBC AUTO DIFFon 11-04-2022 BASO # 0.1 103/ul Normal 0.0-0.1 [facility] Comment on above: Performed By: #### B MP, CMREP, LIPID #### [facility] [address] [place] [address] [address] Jeimy Tenorio Basophils/100 WBC (Bld) 0.9 % Normal 0.2-2.0 [facility] Comment on above: Performed By: #### B MP, CMREP, LIPID #### [facility] [address] [place] [address] [address] Jeimy Tenorio EO # 0.3 103/ul Normal 0.0-0.7 [facility] Comment on above: Performed By: #### B MP, CMREP, LIPID #### [facility] [address] [place] [address] Dr. Jeimy Tenorio Eosinophils/100 WBC (Bld) 5.2 % Normal 0.9-7.0 [facility] Comment on above: Performed By: #### B MP, CMREP, LIPID #### [facility] [address] [place] [address] Dr. Jeimy Tenorio Erythrocyte distribution width (RBC) [Ratio] 12.9 % Normal 11.0-15.0 [facility] Comment on above: Performed By: #### B MP, CMREP, LIPID #### [facility] [address] [place] [address] Dr. Jeimy Tenorio Hematocrit (Bld) [Volume fraction] 39.5 % Critically low 42.0-54.0 [facility] Comment on above: Performed By: #### B MP, CMREP, LIPID #### [facility] [address] [place] [address] Dr. Jeimy Tenorio Hemoglobin (Bld) [Mass/Vol] 13.1 g/dL Critically low 14.0-18.0 [facility] Comment on above: Performed By: #### B MP, CMREP, LIPID #### [facility] [address] [place] [address] Dr. Jeimy Tenorio IG # 0.03 10e3/ul Normal 0.00-0.03 [facility] Comment on above: Performed By: #### B MP, CMREP, LIPID #### [facility] [address] [place] [address] Dr. Jeimy Tenorio IG % 0.5 % Normal 0.0-0.5 [facility] Comment on above: Performed By: #### B MP, CMREP, LIPID #### [facility] [address] [place] [address] Dr. Jeimy Tenorio LYMPH # 1.5 103/ul Normal 1.2-3.8 [facility] Comment on above: Performed By: #### B MP, CMREP, LIPID #### [facility] [address] [place] [address] [address] Jeimy Tenorio Lymphocytes/100 WBC (Bld) 22.6 % Normal 20.5-60.0 [facility] Comment on above: Performed By: #### B MP, CMREP, LIPID #### [facility] [address] [place] [address] Dr. Jeimy Tenorio MANUAL DIFF REQ NO Normal [facility] Comment on above: Performed By: #### B MP, CMREP, LIPID #### [facility] [address] [place] [address] Dr. Jeimy Tenorio MCH (RBC) [Entitic mass] 32.8 pg Normal 25.9-34.0 [facility] Comment on above: Performed By: #### B MP, CMREP, LIPID #### [facility] [address] [place] [address] Dr. Jeimy Tenorio MCHC (RBC) [Mass/Vol] 33.2 g/dL Normal 29.9-35.2 [facility] Comment on above: Performed By: #### B MP, CMREP, LIPID #### [facility] [address] [place] [address] Dr. Jeimy Tenorio MCV (RBC) [Entitic vol] 99.0 fL Critically high 80.0-94.0 [facility] Comment on above: Performed By: #### B MP, CMREP, LIPID #### [facility] [address] [place] [address] Dr. Jeimy Tenorio MONO # 0.7 103/ul Normal 0.3-0.8 [facility] Comment on above: Performed By: #### B MP, CMREP, LIPID #### [facility] [address] [place] [address] Dr. Jeimy Tenorio Monocytes/100 WBC (Bld) 10.6 % Normal 1.7-12.0 [facility] Comment on above: Performed By: #### B MP, CMREP, LIPID #### [facility] [address] [place] [address] Dr. Jeimy Tenorio NEUT # 4.0 103/ul Normal 1.4-6.5 [facility] Comment on above: Performed By: #### B MP, CMREP, LIPID #### [facility] [address] [place] [address] [address] Jeimy Tenorio Neutrophils/100 WBC (Bld) 60.2 % Normal 43.0-75.0 [facility] Comment on above: Performed By: #### B MP, CMREP, LIPID #### [facility] [address] [place] [address] Dr. Jeimy Tenorio Platelet mean volume (Bld) [Entitic vol] 9.7 fL Normal 9.5-13.5 [facility] Comment on above: Performed By: #### B MP, CMREP, LIPID #### [facility] [address] [place] [address] Dr. Jeimy Tenorio PLT 176 103/ul Normal 150-450 [facility] Comment on above: Performed By: #### B MP, CMREP, LIPID #### [facility] [address] [place] [address] Dr. Jeimy Tenorio RBC 3.99 106/ul Critically low 4.70-6.10 [facility] Comment on above: Performed By: #### B MP, CMREP, LIPID #### [facility] [address] [place] [address] Dr. Jeimy Tenorio WBC 6.6 103/ul Normal 4.0-11.0 [facility] Comment on above: Performed By: #### B MP, CMREP, LIPID #### [facility] [address] [place] [address] HEAD WO CONon [...] ALEJANDRO PINEDA Date: 2022-11-04 14:08 Normal [facility] Covid-19 PCR (CVDTB)on 10-21 SARS-CoV-2 (COVID-19) RNA ALEX+probe Ql (Unsp spec) Not detected Normal NOT DETECTED [facility] Comment on above: Result Comment: This test is not yet approved or cleared by the [place] FDA. When there are no FDA-approved or cleared tests available, and other criteria are met, FDA can make tests available under an emergency access mechanism called an Emergency Use Authorization (EUA). The EUA for this test is supported by the [place] of Health and Human Service's (HHS's) declaration [...] By: #### B MP, CMREP, LIPID #### [facility] [address] [place] [address] Dr. Jeimy Tenorio INFLUENZA A AND B AGon 11-04 INFLUANEGH SEE BELOW Normal [facility] Comment on above: Result Comment: Nega tive for Flu A protein angiten. Infection due to Flu A cannot be ruled out. Flu A angiten in the sample may be below the detection limit of the test. Performed By: #### I NFLUAB #### [facility] [address] [place] [address] Dr. Jeimy Tenorio [facility] SEE BELOW Normal [facility] Comment on above: Result Comment: Nega tive for Flu B protein antigen. Infection due to Flu B cannot be ruled out. Flu B antigen in the sample may be below the detection limit of the test. Performed By: #### I NFLUAB #### [facility] [address] [place] [address] Dr. Jeimy Tenorio INFLUENZA A AG Negative Normal NEGATIVE SEE COMMENT [facility] Comment on above: Performed By: #### I NFLUAB #### [facility] [address] [place] [address] Dr. Jeimy Tenorio INFLUENZA B AG Negative Normal NEGATIVE SEE COMMENT [facility] Comment on above: Performed By: #### I NFLUAB #### [facility] [address] [place] [address] Dr. Jeimy Tenorio INTERNAL CONTROLS Within Normal Limits Normal Wi thin Normal Limits [facility] Comment on above: Performed By: #### I NFLUAB #### [facility] [address] [place] [address] Dr. Jeimy Tenorio PROF CHEM 8 (BAS METB)on Anion gap [Moles/Vol] 9.7 mmol/L Normal [facility] Comment on above: Performed By: #### C BC #### [facility] [address] [place] [address] Dr. Jeimy Tenorio Calcium [Mass/Vol] 8.0 mg/dL Critically low 8.5-10.1 [facility] Comment on above: Performed By: #### C BC #### [facility] [address] [place] [address] Dr. Jeimy Tenorio Chloride [Moles/Vol] 104 mmol/L Normal 98-107 [facility] Comment on above: Performed By: #### C BC #### [facility] [address] [place] [address] Dr. Jeimy Tenorio CO2 [Moles/Vol] 31.1 mmol/L Normal 21.0-32.0 [facility] Comment on above: Performed By: #### C BC #### [facility] [address] [address] [address] Jeimy Tenorio Creatinine [Mass/Vol] 0.75 mg/dL Normal 0.70-1.30 [facility] Comment on above: Performed By: #### C BC #### [facility] [address] [address] [address] Jeimy Tenorio EGFR-AF ANGUILLAN >60 Normal >=60 [facility] Comment on above: Performed By: #### C BC #### [facility] [address] [place] [address] Dr. Jeimy Tenorio EGFR-NON AF ANGUILLAN >60 Normal >=60 [facility] Comment on above: Performed By: #### C BC #### [facility] [address] [place] [address] Dr. Jeimy Tenorio Glucose [Mass/Vol] 76 mg/dL Normal 74-106 [facility] Comment on above: Performed By: #### C BC #### [facility] [address] [address] [address] Jeimy Tenorio Potassium [Moles/Vol] 3.8 mmol/L Normal 3.5-5.1 [facility] Comment on above: Performed By: #### C BC #### [facility] [address] [place] [address] Dr. Jeimy Tenorio Sodium [Moles/Vol] 141 mmol/L Normal 136-145 [facility] Comment on above: Performed By: #### C BC #### [facility] [address] [address] [address] Jeimy Tenorio Urea nitrogen [Mass/Vol] 12.0 mg/dL Normal 7.0-18.0 [facility] Comment on above: Performed By: #### C BC #### [facility] [address] [place] [address] Dr. Jeimy Tenorio Urea nitrogen/Creatinine [Mass ratio] 16.0 mg/mg Normal [facility] Comment on above: Performed By: #### C BC #### [facility] [address] [place] [address] Dr. Jeimy Tenorio TROPONIN, HIGH SENSITIVITYon 11-04-2022 HSTROP 5.8 pg/mL Normal 4.0-76.1 [facility] Comment on above: Result Comment: CUT- OFF POINTS HAVE BEEN ESTABLISHED BASED ON THE FOURTH UNIVERSAL DEFINITIONS OF MYOCARDIAL INFARCTION. THE UPPER REFERENCE LIMIT (URL) OF TROPONIN, DEFINED THE 99TH PERCENTILE OF cTnI DISTRIBUTION IN A REFERENCE POPULATION, HAS BEEN CONFIRMED THE DECISION THRESHOLD FOR NM DIAGNOSIS. Performed By: #### C BC #### [facility] [address] [place] [address] Dr. Jeimy Tenorio CBC AUTO DIFFon 09-29-2022 BASO # 0.1 103/ul Normal 0.0-0.1 [facility] Comment on above: Performed By: #### B MP, CMREP, LIPID #### [facility] [address] [place] [address] Dr. Jeimy Tenorio Basophils/100 WBC (Bld) 1.2 % Normal 0.2-2.0 [facility] Comment on above: Performed By: #### B MP, CMREP, LIPID #### [facility] [address] [place] [address] Dr. Jeimy Tenorio EO # 0.3 103/ul Normal 0.0-0.7 [facility] Comment on above: Performed By: #### B MP, CMREP, LIPID #### [facility] [address] [place] [address] Dr. Jeimy Tenorio Eosinophils/100 WBC (Bld) 4.9 % Normal 0.9-7.0 [facility] Comment on above: Performed By: #### B MP, CMREP, LIPID #### [facility] [address] [place] [address] Dr. Jeimy Tenorio Erythrocyte distribution width (RBC) [Ratio] 13.2 % Normal 11.0-15.0 [facility] Comment on above: Performed By: #### B MP, CMREP, LIPID #### [facility] [address] [place] [address] Dr. Jeimy Tenorio Hematocrit (Bld) [Volume fraction] 42.3 % Normal 42.0-54.0 [facility] Comment on above: Performed By: #### B MP, CMREP, LIPID #### [facility] [address] [place] [address] Dr. Jeimy Tenorio Hemoglobin (Bld) [Mass/Vol] 13.8 g/dL Critically low 14.0-18.0 [facility] Comment on above: Performed By: #### B MP, CMREP, LIPID #### [facility] [address] [place] [address] Dr. Jeimy Tenorio IG # 0.02 10e3/ul Normal 0.00-0.03 [facility] Comment on above: Performed By: #### B MP, CMREP, LIPID #### [facility] [address] [place] [address] Dr. Jeimy Tenorio IG % 0.3 % Normal 0.0-0.5 [facility] Comment on above: Performed By: #### B MP, CMREP, LIPID #### [facility] [address] [place] [address] Dr. Jeimy Tenorio LYMPH # 1.3 103/ul Normal 1.2-3.8 [facility] Comment on above: Performed By: #### B MP, CMREP, LIPID #### [facility] [address] [place] [address] Dr. Jeimy Tenorio Lymphocytes/100 WBC (Bld) 19.5 % Critically low 20.5-60.0 [facility] Comment on above: Performed By: #### B MP, CMREP, LIPID #### [facility] [address] [place] [address] Dr. Jeimy Tenorio MANUAL DIFF REQ NO Normal [facility] Comment on above: Performed By: #### B MP, CMREP, LIPID #### [facility] [address] [place] [address] Dr. Jeimy Tenorio MCH (RBC) [Entitic mass] 32.9 pg Normal 25.9-34.0 [facility] Comment on above: Performed By: #### B MP, CMREP, LIPID #### [facility] [address] [place] [address] Dr. Jeimy Tenorio MCHC (RBC) [Mass/Vol] 32.6 g/dL Normal 29.9-35.2 [facility] Comment on above: Performed By: #### B MP, CMREP, LIPID #### [facility] [address] [place] [address] Dr. Jeimy Tenorio MCV (RBC) [Entitic vol] 100.7 fL Critically high 80.0-94.0 [facility] Comment on above: Performed By: #### B MP, CMREP, LIPID #### [facility] [address] [place] [address] Dr. Jeimy Tenorio MONO # 0.7 103/ul Normal 0.3-0.8 [facility] Comment on above: Performed By: #### B MP, CMREP, LIPID #### [facility] [address] [place] [address] Dr. Jeimy Tenorio Monocytes/100 WBC (Bld) 9.9 % Normal 1.7-12.0 [facility] Comment on above: Performed By: #### B MP, CMREP, LIPID #### [facility] [address] [place] [address] Dr. Jeimy Tenorio NEUT # 4.3 103/ul Normal 1.4-6.5 [facility] Comment on above: Performed By: #### B MP, CMREP, LIPID #### [facility] [address] [place] [address] Dr. Jeimy Tenorio Neutrophils/100 WBC (Bld) 64.2 % Normal 43.0-75.0 [facility] Comment on above: Performed By: #### B MP, CMREP, LIPID #### [facility] [address] [place] [address] Dr. Jeimy Tenorio Platelet mean volume (Bld) [Entitic vol] 10.4 fL Normal 9.5-13.5 [facility] Comment on above: Performed By: #### B MP, CMREP, LIPID #### [facility] [address] [address] [address] Jeimy Tenorio PLT 209 103/ul Normal 150-450 [facility] Comment on above: Performed By: #### B MP, CMREP, LIPID #### [facility] [address] [address] [address] Jeimy Tenorio RBC 4.20 106/ul Critically low 4.70-6.10 [facility] Comment on above: Performed By: #### B MP, CMREP, LIPID #### [facility] [address] [address] [address] Jeimy Tenorio WBC 6.7 103/ul Normal 4.0-11.0 [facility] Comment on above: Performed By: #### B MP, CMREP, LIPID #### [facility] [address] [place] [address] Dr. Jeimy Tenorio DILANTINon 09-29-2022 Phenytoin [Mass/Vol] 23.7 ug/mL Critically high 10.0-20.0 [facility] Comment on above: Performed By: #### C BC #### [facility] [address] [place] [address] Dr. Jeimy Tenorio GLYCOHEMOGLOBIN A1Con 2021 ADA RECOMMENDATION SEE BELOW Normal [facility] Comment on above: Result Comment: ADA RECOMMENDED LIMIT 4.0 - 6.0 ADA THERAPEUTIC TARGET < 7.0 ACTION SUGGESTED > 7.0 Performed By: #### A 1C #### [facility] [address] [place] [address] Dr. Jeimy Tenorio Glucose [Mass/Vol] 105 mg/dL Normal [facility] Comment on above: Performed By: #### A 1C #### [facility] [address] [place] [address] Dr. Jeimy Tenorio HbA1c (Bld) [Mass fraction] 5.3 % Normal 4.5-6.2 [facility] Comment on above: Performed By: #### A 1C #### [facility] [address] [place] [address] Dr. Jeimy Tenorio LIPID PROFILEon 09-29-2022 CHOL-HDL RATIO NORM SEE BELOW Normal [facility] Comment on above: Result Comment: 3.3 - 4.4 LOW RISK 4.4 - 7.1 AVERAGE RISK 7.1 - 11.0 MODERATE RISK >11.0 HIGH RISK Performed By: #### B MP, CMREP, LIPID #### [facility] [address] [address] [address] Jeimy Tenorio Cholesterol [Mass/Vol] 178 mg/dL Normal <=200 [facility] Comment on above: Performed By: #### B MP, CMREP, LIPID #### [facility] [address] [address] [address] Jeimy Tenorio Cholesterol in HDL [Mass/Vol] 56 mg/dL Normal 40-60 [facility] Comment on above: Performed By: #### B MP, CMREP, LIPID #### [facility] [address] [address] [address] Jeimy Tenorio Cholesterol in LDL [Mass/Vol] 86.8 mg/dL Normal [facility] Comment on above: Performed By: #### B MP, CMREP, LIPID #### [facility] [address] [address] [address] Jeimy Tenorio Cholesterol.total/Chol esterol in HDL [Mass ratio] 3.2 {ratio} Normal [facility] Comment on above: Performed By: #### B MP, CMREP, LIPID #### [facility] [address] [address] [address] Jeimy Tenorio HDL NORMAL > or = 60 mg/dl - LOW CARDIOVASCULAR RISK <40 mg/dl - HIGH CARDIOVASCULAR RISK Normal [facility] Comment on above: Performed By: #### B MP, CMREP, LIPID #### [facility] [address] [address] [address] Jeimy Tenorio LDL CALC NORMAL SEE BELOW Normal [facility] Comment on above: Result Comment: <100 mg/dl OPTIMAL 100 - 129 mg/dl NEAR OR ABOVE OPTIMAL 130 - 159 mg/dl BORDERLINE HIGH 160 - 189 mg/dl HIGH >190 mg/dl VERY HIGH Performed By: #### B MP, CMREP, LIPID #### [facility] [address] [address] [address] Jeimy Tenorio Triglyceride [Mass/Vol] 176 mg/dL Critically high <=150 [facility] Comment on above: Performed By: #### B MP, CMREP, LIPID #### [facility] [address] [address] [address] Jeimy Tenorio VLDL CALC 35.2 mg/dL Normal [facility] Comment on above: Performed By: #### B MP, CMREP, LIPID #### [facility] [address] [address] [address] Jeimy Tenorio LIVER PROFILEon 09-29-2022 Albumin [Mass/Vol] 3.5 g/dL Normal 3.4-5.0 [facility] Comment on above: Performed By: #### B MP, CMREP, LIPID #### [facility] [address] [place] [address] Dr. Jeimy Tenorio Albumin/Globulin [Mass ratio] 0.8 {ratio} Normal [facility] Comment on above: Performed By: #### B MP, CMREP, LIPID #### [facility] [address] [place] [address] Dr. Jeimy Tenorio ALP [Catalytic activity/Vol] 139 U/L Critically high 46-116 [facility] Comment on above: Performed By: #### B MP, CMREP, LIPID #### [facility] [address] [place] [address] Dr. Jeimy Tenorio ALT [Catalytic activity/Vol] 25 U/L Normal 16-63 [facility] Comment on above: Performed By: #### B MP, CMREP, LIPID #### [facility] [address] [place] [address] Dr. Jeimy Tenorio AST [Catalytic activity/Vol] 23 U/L Normal 15-37 [facility] Comment on above: Performed By: #### B MP, CMREP, LIPID #### [facility] [address] [place] [address] Dr. Jeimy Tenorio BILI, CONJUGATED 0.0 mg/dL Normal 0.0-0.2 [facility] Comment on above: Performed By: #### B MP, CMREP, LIPID #### [facility] [address] [place] [address] Dr. Jeimy Tenorio Bilirubin [Mass/Vol] 0.3 mg/dL Normal 0.2-1.0 [facility] Comment on above: Performed By: #### B MP, CMREP, LIPID #### [facility] [address] [place] [address] Dr. Jeimy Tenorio Globulin (S) [Mass/Vol] 4.3 g/dL Normal [facility] Comment on above: Performed By: #### B MP, CMREP, LIPID #### [facility] [address] [place] [address] Dr. Jeimy Tenorio Protein [Mass/Vol] 7.8 g/dL Normal 6.4-8.2 [facility] Comment on above: Performed By: #### B MP, CMREP, LIPID #### [facility] [address] [place] [address] Dr. Jeimy Tenorio PROF CHEM 8 (BAS METB)on Anion gap [Moles/Vol] 8.7 mmol/L Normal [facility] Comment on above: Performed By: #### B MP, CMREP, LIPID #### [facility] [address] [place] [address] Dr. Jeimy Tenorio Calcium [Mass/Vol] 8.7 mg/dL Normal 8.5-10.1 [facility] Comment on above: Performed By: #### B MP, CMREP, LIPID #### [facility] [address] [place] [address] Dr. Jeimy Tenorio Chloride [Moles/Vol] 104 mmol/L Normal 98-107 [facility] Comment on above: Performed By: #### B MP, CMREP, LIPID #### [facility] [address] [place] [address] Dr. Jeimy Tenorio CO2 [Moles/Vol] 29.8 mmol/L Normal 21.0-32.0 [facility] Comment on above: Performed By: #### B MP, CMREP, LIPID #### [facility] [address] [place] [address] Dr. Jeimy Tenorio Creatinine [Mass/Vol] 0.76 mg/dL Normal 0.70-1.30 [facility] Comment on above: Performed By: #### B MP, CMREP, LIPID #### [facility] [address] [address] [address] Jeimy Tenorio EGFR-AF ANGUILLAN >60 Normal >=60 [facility] Comment on above: Performed By: #### B MP, CMREP, LIPID #### [facility] [address] [address] [address] Jeimy Tenorio EGFR-NON AF ANGUILLAN >60 Normal >=60 [facility] Comment on above: Performed By: #### B MP, CMREP, LIPID #### [facility] [address] [address] [address] Jeimy Tenorio Glucose [Mass/Vol] 95 mg/dL Normal 74-106 [facility] Comment on above: Performed By: #### B MP, CMREP, LIPID #### [facility] [address] [address] [address] Jeimy Tenorio Potassium [Moles/Vol] 4.5 mmol/L Normal 3.5-5.1 [facility] Comment on above: Performed By: #### B MP, CMREP, LIPID #### [facility] [address] [place] [address] Dr. Jeimy Tenorio Sodium [Moles/Vol] 138 mmol/L Normal 136-145 [facility] Comment on above: Performed By: #### B MP, CMREP, LIPID #### [facility] [address] [place] [address] Dr. Jeimy Tenorio Urea nitrogen [Mass/Vol] 18.0 mg/dL Normal 7.0-18.0 [facility] Comment on above: Performed By: #### B MP, CMREP, LIPID #### [facility] [address] [place] [address] Dr. Jeimy Tenorio Urea nitrogen/Creatinine [Mass ratio] 23.7 mg/mg Normal [facility] Comment on above: Performed By: #### B MP, CMREP, LIPID #### [facility] [address] [place] [address] Dr. Jeimy Tenorio TSHon 09-29-2022 TSH 1.694 uIU/mL Normal 0.358-3.740 [facility] Comment on above: Performed By: #### B MP, CMREP, LIPID #### [facility] [address] [place] [address] Dr. Jeimy Tenorio CARDIAC SAWYER 3-6on 2 CK [Catalytic activity/Vol] 47 U/L Normal 39-308 [facility] Comment on above: Performed By: #### B MP, CMREP, LIPID #### [facility] [address] [place] [address] Dr. Jeimy Tenorio CK.MB [Mass/Vol] 0.77 ng/mL Normal <=3.60 [facility] Comment on above: Performed By: #### B MP, CMREP, LIPID #### [facility] [address] [place] [address] Dr. Jeimy Tenorio HSTROP 6.9 pg/mL Normal 4.0-76.1 [facility] Comment on above: Result Comment: CUT- OFF POINTS HAVE BEEN ESTABLISHED BASED ON THE FOURTH UNIVERSAL DEFINITIONS OF MYOCARDIAL INFARCTION. THE UPPER REFERENCE LIMIT (URL) OF TROPONIN, DEFINED THE 99TH PERCENTILE OF cTnI DISTRIBUTION IN A REFERENCE POPULATION, HAS BEEN CONFIRMED THE DECISION THRESHOLD FOR NM DIAGNOSIS. Performed By: #### B MP, CMREP, LIPID #### [facility] [address] [place] [address] Dr. Jeimy Tenorio CK [Catalytic activity/Vol] 53 U/L Normal 39-308 [facility] Comment on above: Performed By: #### C BC #### [facility] [address] [place] [address] Dr. Jeimy Tenorio CK.MB [Mass/Vol] 0.80 ng/mL Normal <=3.60 [facility] Comment on above: Performed By: #### C BC #### [facility] [address] [place] [address] Dr. Jeimy Tenorio HSTROP 6.2 pg/mL Normal 4.0-76.1 [facility] Comment on above: Result Comment: CUT- OFF POINTS HAVE BEEN ESTABLISHED BASED ON THE FOURTH UNIVERSAL DEFINITIONS OF MYOCARDIAL INFARCTION. THE UPPER REFERENCE LIMIT (URL) OF TROPONIN, DEFINED THE 99TH PERCENTILE OF cTnI DISTRIBUTION IN A REFERENCE POPULATION, HAS BEEN CONFIRMED THE DECISION THRESHOLD FOR NM DIAGNOSIS. Performed By: #### C BC #### [facility] [address] [place] [address] Dr. Jeimy Tenorio CBC AUTO DIFFon 06-12-2022 BASO # 0.1 103/ul Normal 0.0-0.1 [facility] Comment on above: Performed By: #### C BC #### [facility] [address] [place] [address] Dr. Jeimy Tenorio Basophils/100 WBC (Bld) 0.9 % Normal 0.2-2.0 [facility] Comment on above: Performed By: #### C BC #### [facility] [address] [place] [address] Dr. Jeimy Tenorio EO # 0.3 103/ul Normal 0.0-0.7 [facility] Comment on above: Performed By: #### C BC #### [facility] [address] [place] [address] Dr. Jeimy Tenorio Eosinophils/100 WBC (Bld) 5.2 % Normal 0.9-7.0 [facility] Comment on above: Performed By: #### C BC #### [facility] [address] [place] [address] Dr. Jeimy Tenorio Erythrocyte distribution width (RBC) [Ratio] 13.0 % Normal 11.0-15.0 [facility] Comment on above: Performed By: #### C BC #### [facility] [address] [place] [address] Dr. Jeimy Tenorio Hematocrit (Bld) [Volume fraction] 39.1 % Critically low 42.0-54.0 [facility] Comment on above: Performed By: #### C BC #### [facility] [address] [place] [address] Dr. Jeimy Tenorio Hemoglobin (Bld) [Mass/Vol] 13.2 g/dL Critically low 14.0-18.0 [facility] Comment on above: Performed By: #### C BC #### [facility] [address] [place] [address] Dr. Jeimy Tenorio IG # 0.03 10e3/ul Normal 0.00-0.03 [facility] Comment on above: Performed By: #### C BC #### [facility] [address] [place] [address] Dr. Jeimy Tenorio IG % 0.5 % Normal 0.0-0.5 [facility] Comment on above: Performed By: #### C BC #### [facility] [address] [place] [address] Dr. Jeimy Tenorio LYMPH # 1.7 103/ul Normal 1.2-3.8 [facility] Comment on above: Performed By: #### C BC #### [facility] [address] [place] [address] Dr. Jeimy Tenorio Lymphocytes/100 WBC (Bld) 26.0 % Normal 20.5-60.0 [facility] Comment on above: Performed By: #### C BC #### [facility] [address] [place] [address] Dr. Jeimy Tenorio MANUAL DIFF REQ NO Normal [facility] Comment on above: Performed By: #### C BC #### [facility] [address] [place] [address] Dr. Jeimy Tenorio MCH (RBC) [Entitic mass] 33.2 pg Normal 25.9-34.0 [facility] Comment on above: Performed By: #### C BC #### [facility] [address] [place] [address] Dr. Jeimy Tenorio MCHC (RBC) [Mass/Vol] 33.8 g/dL Normal 29.9-35.2 [facility] Comment on above: Performed By: #### C BC #### [facility] [address] [place] [address] Dr. Jeimy Tenorio MCV (RBC) [Entitic vol] 98.5 fL Critically high 80.0-94.0 [facility] Comment on above: Performed By: #### C BC #### [facility] [address] [address] [address] Jeimy Tenorio MONO # 0.8 103/ul Normal 0.3-0.8 [facility] Comment on above: Performed By: #### C BC #### [facility] [address] [address] [address] Jeimy Tenorio Monocytes/100 WBC (Bld) 12.2 % Critically high 1.7-12.0 [facility] Comment on above: Performed By: #### C BC #### [facility] [address] [place] [address] Dr. Jeimy Tenorio NEUT # 3.6 103/ul Normal 1.4-6.5 [facility] Comment on above: Performed By: #### C BC #### [facility] [address] [place] [address] Dr. Jeimy Tenorio Neutrophils/100 WBC (Bld) 55.2 % Normal 43.0-75.0 [facility] Comment on above: Performed By: #### C BC #### [facility] [address] [place] [address] Dr. Jeimy Tenorio Platelet mean volume (Bld) [Entitic vol] 9.9 fL Normal 9.5-13.5 [facility] Comment on above: Performed By: #### C BC #### [facility] [address] [place] [address] Dr. Jeimy Tenorio PLT 174 103/ul Normal 150-450 [facility] Comment on above: Performed By: #### C BC #### [facility] [address] [place] [address] Dr. Jeimy Tenorio RBC 3.97 106/ul Critically low 4.70-6.10 [facility] Comment on above: Performed By: #### C BC #### [facility] [address] [place] [address] Dr. Jeimy Tenorio WBC 6.5 103/ul Normal 4.0-11.0 [facility] Comment on above: Performed By: #### C BC #### [facility] [address] [place] [address] Dr. Jeimy Tenorio CTA CHEST WO W [...] MAMIE ALFORD Date: 2022-06-12 00:21 Normal [facility] Covid-19 PCR (CVDTB)on 05-22 SARS-CoV-2 (COVID-19) RNA ALEX+probe Ql (Unsp spec) Not detected Normal NOT DETECTED [facility] Comment on above: Result Comment: [...] for this test is supported by the [place] of Health and Human Service's declaration that [...] By: #### B MP, CMREP, LIPID #### [facility] [address] [place] [address] Dr. Jeimy Tenorio ER URINE PROFILEon 2 Bilirubin Ql (U) Negative Normal NEGATIVE [facility] Comment on above: Performed By: #### E RUR #### [facility] [address] [place] [address] Dr. Jeimy Tenorio Clarity (U) CLEAR Normal CLEAR [facility] Comment on above: Performed By: #### E RUR #### [facility] [address] [place] [address] Dr. Jeimy Tenorio Color (U) LT. YELLOW Normal YELLOW [facility] Comment on above: Performed By: #### E RUR #### [facility] [address] [place] [address] Dr. Jeimy Tenorio ERUNAVYAD A micrscopic examination will be performed if indicated. Normal [facility] Comment on above: Performed By: #### E RUR #### [facility] [address] [place] [address] Dr. Jeimy Tenorio Glucose Ql (U) Negative Normal NEGATIVE [facility] Comment on above: Performed By: #### E RUR #### [facility] [address] [place] [address] Dr. Jeimy Tenorio Hemoglobin Ql (U) Negative Normal NEGATIVE [facility] Comment on above: Performed By: #### E RUR #### [facility] [address] [place] [address] Dr. Jeimy Tenorio Ketones Ql (U) TRACE Abnormal NEGATIVE [facility] Comment on above: Performed By: #### E RUR #### [facility] [address] [place] [address] Dr. Jeimy Tenorio LEUKOCYTES Negative Normal NEGATIVE [facility] Comment on above: Performed By: #### E RUR #### [facility] [address] [place] [address] Dr. Jeimy Tenorio Nitrite Ql (U) Negative Normal NEGATIVE [facility] Comment on above: Performed By: #### E RUR #### [facility] [address] [place] [address] Dr. Jeimy Tenorio pH (U) 5.5 [pH] Normal 5-9 [facility] Comment on above: Performed By: #### E RUR #### [facility] [address] [place] [address] Dr. Jeimy Tenorio SPEC GRAVITY 1.010 Normal 1.005-<=1.02 5 [facility] Comment on above: Performed By: #### E RUR #### [facility] [address] [place] [address] Dr. Jeimy Tenorio UA PROTEIN Negative Normal NEGATIVE/ TRACE [facility] Comment on above: Performed By: #### E RUR #### [facility] [address] [place] [address] Dr. Jeimy Tenorio UR MICRO IND NOT INDICATED Normal [facility] Comment on above: Performed By: #### E RUR #### [facility] [address] [place] [address] Dr. Jeimy Tenorio Urobilinogen Qn (U) 0.2 {Raphael'U}/dL Normal 0.2 - 1. 0 [facility] Comment on above: Performed By: #### E RUR #### [facility] [address] [place] [address] Dr. Jeimy Tenorio GLYCOHEMOGLOBIN A1Con 2021 ADA RECOMMENDATION SEE BELOW Normal [facility] Comment on above: Result Comment: ADA RECOMMENDED LIMIT 4.0 - 6.0 ADA THERAPEUTIC TARGET < 7.0 ACTION SUGGESTED > 7.0 Performed By: #### C BC #### [facility] [address] [address] [address] Jeimy Tenorio Glucose [Mass/Vol] 103 mg/dL Normal [facility] Comment on above: Performed By: #### C BC #### [facility] [address] [address] [address] Jeimy Tenorio HbA1c (Bld) [Mass fraction] 5.2 % Normal 4.5-6.2 [facility] Comment on above: Performed By: #### C BC #### [facility] [address] [address] [address] Jeimy Tenorio LIPID PROFILEon 06-12-2022 CHOL-HDL RATIO NORM SEE BELOW Normal [facility] Comment on above: Result Comment: 3.3 - 4.4 LOW RISK 4.4 - 7.1 AVERAGE RISK 7.1 - 11.0 MODERATE RISK >11.0 HIGH RISK Performed By: #### B MP, CMREP, LIPID #### [facility] [address] [place] [address] Dr. Jeimy Tenorio Cholesterol [Mass/Vol] 142 mg/dL Normal <=200 [facility] Comment on above: Performed By: #### B MP, CMREP, LIPID #### [facility] [address] [place] [address] Dr. Jeimy Tenorio Cholesterol in HDL [Mass/Vol] 49 mg/dL Normal 40-60 [facility] Comment on above: Performed By: #### B MP, CMREP, LIPID #### [facility] [address] [place] [address] Dr. Jeimy Tenorio Cholesterol in LDL [Mass/Vol] 64.6 mg/dL Normal [facility] Comment on above: Performed By: #### B MP, CMREP, LIPID #### [facility] [address] [address] [address] Jeimy Tenorio Cholesterol.total/Chol esterol in HDL [Mass ratio] 2.9 {ratio} Normal [facility] Comment on above: Performed By: #### B MP, CMREP, LIPID #### [facility] [address] [address] [address] Jeimy Tenorio HDL NORMAL > or = 60 mg/dl - LOW CARDIOVASCULAR RISK <40 mg/dl - HIGH CARDIOVASCULAR RISK Normal [facility] Comment on above: Performed By: #### B MP, CMREP, LIPID #### [facility] [address] [address] [address] Jeimy Tenorio LDL CALC NORMAL SEE BELOW Normal [facility] Comment on above: Result Comment: <100 mg/dl OPTIMAL 100 - 129 mg/dl NEAR OR ABOVE OPTIMAL 130 - 159 mg/dl BORDERLINE HIGH 160 - 189 mg/dl HIGH >190 mg/dl VERY HIGH Performed By: #### B MP, CMREP, LIPID #### [facility] [address] [address] [address] Jeimy Tenorio Triglyceride [Mass/Vol] 142 mg/dL Normal <=150 [facility] Comment on above: Performed By: #### B MP, CMREP, LIPID #### [facility] [address] [place] [address] Dr. Jeimy Tenorio VLDL CALC 28.4 mg/dL Normal [facility] Comment on above: Performed By: #### B MP, CMREP, LIPID #### [facility] [address] [place] [address] Dr. Jeimy Tenorio PROF CHEM 8 (BAS METB)on Anion gap [Moles/Vol] 10.1 mmol/L Normal [facility] Comment on above: Performed By: #### B MP, CMREP, LIPID #### [facility] [address] [place] [address] Dr. Jeimy Tenorio Calcium [Mass/Vol] 8.0 mg/dL Critically low 8.5-10.1 [facility] Comment on above: Performed By: #### B MP, CMREP, LIPID #### [facility] [address] [place] [address] Dr. Jeimy Tenorio Chloride [Moles/Vol] 104 mmol/L Normal 98-107 [facility] Comment on above: Performed By: #### B MP, CMREP, LIPID #### [facility] [address] [address] [address] Jeimy Tenorio CO2 [Moles/Vol] 27.0 mmol/L Normal 21.0-32.0 [facility] Comment on above: Performed By: #### B MP, CMREP, LIPID #### [facility] [address] [address] [address] Jeimy Tenorio Creatinine [Mass/Vol] 0.79 mg/dL Normal 0.70-1.30 [facility] Comment on above: Performed By: #### B MP, CMREP, LIPID #### [facility] [address] [address] [address] Jeimy Tenorio EGFR-AF ANGUILLAN >60 Normal >=60 [facility] Comment on above: Performed By: #### B MP, CMREP, LIPID #### [facility] [address] [address] [address] Jeimy Tenorio EGFR-NON AF ANGUILLAN >60 Normal >=60 [facility] Comment on above: Performed By: #### B MP, CMREP, LIPID #### [facility] [address] [address] [address] Jeimy Tenorio Glucose [Mass/Vol] 101 mg/dL Normal 74-106 [facility] Comment on above: Performed By: #### B MP, CMREP, LIPID #### [facility] [address] [address] [address] Jeimy Tenorio Potassium [Moles/Vol] 4.1 mmol/L Normal 3.5-5.1 [facility] Comment on above: Performed By: #### B MP, CMREP, LIPID #### [facility] [address] [address] [address] Jeimy Tenorio Sodium [Moles/Vol] 137 mmol/L Normal 136-145 [facility] Comment on above: Performed By: #### B MP, CMREP, LIPID #### [facility] [address] [address] [address] Jeimy Tenorio Urea nitrogen [Mass/Vol] 15.0 mg/dL Normal 7.0-18.0 [facility] Comment on above: Performed By: #### B MP, CMREP, LIPID #### [facility] [address] [place] [address] Dr. Jeimy Tenorio Urea nitrogen/Creatinine [Mass ratio] 19.0 mg/mg Normal [facility] Comment on above: Performed By: #### B MP, CMREP, LIPID #### [facility] [address] [place] [address] Dr. Jeimy Tenorio CARDIAC SAWYER ADMITon 022 CK [Catalytic activity/Vol] 50 U/L Normal 39-308 [facility] Comment on above: Performed By: #### C BC #### [facility] [address] [place] [address] Dr. Jeimy Tenorio CK.MB [Mass/Vol] 0.80 ng/mL Normal <=3.60 [facility] Comment on above: Performed By: #### C BC #### [facility] [address] [place] [address] Dr. Jeimy Tenorio HSTROP 5.2 pg/mL Normal 4.0-76.1 [facility] Comment on above: Result Comment: CUT- OFF POINTS HAVE BEEN ESTABLISHED BASED ON THE FOURTH UNIVERSAL DEFINITIONS OF MYOCARDIAL INFARCTION. THE UPPER REFERENCE LIMIT (URL) OF TROPONIN, DEFINED THE 99TH PERCENTILE OF cTnI DISTRIBUTION IN A REFERENCE POPULATION, HAS BEEN CONFIRMED THE DECISION THRESHOLD FOR NM DIAGNOSIS. Performed By: #### C BC #### [facility] [address] [place] [address] Dr. Jeimy Tenorio MAGALIE 41 ng/mL Normal 16-96 [facility] Comment on above: Performed By: #### C BC #### [facility] [address] [place] [address] Dr. Jeimy Tenorio CBC AUTO DIFFon 06-11-2022 BASO # 0.0 103/ul Normal 0.0-0.1 [facility] Comment on above: Performed By: #### C BC #### [facility] [address] [place] [address] Dr. Jeimy Tenorio Basophils/100 WBC (Bld) 0.6 % Normal 0.2-2.0 [facility] Comment on above: Performed By: #### C BC #### [facility] [address] [place] [address] Dr. Jeimy Tenorio EO # 0.4 103/ul Normal 0.0-0.7 [facility] Comment on above: Performed By: #### C BC #### [facility] [address] [place] [address] Dr. Jeimy Tenorio Eosinophils/100 WBC (Bld) 4.9 % Normal 0.9-7.0 [facility] Comment on above: Performed By: #### C BC #### [facility] [address] [place] [address] Dr. Jeimy Tenorio Erythrocyte distribution width (RBC) [Ratio] 13.1 % Normal 11.0-15.0 [facility] Comment on above: Performed By: #### C BC #### [facility] [address] [place] [address] Dr. Jeimy Tenorio Hematocrit (Bld) [Volume fraction] 38.1 % Critically low 42.0-54.0 [facility] Comment on above: Performed By: #### C BC #### [facility] [address] [place] [address] Dr. Jeimy Tenorio Hemoglobin (Bld) [Mass/Vol] 13.0 g/dL Critically low 14.0-18.0 [facility] Comment on above: Performed By: #### C BC #### [facility] [address] [place] [address] Dr. Jeimy Tenorio IG # 0.02 10e3/ul Normal 0.00-0.03 [facility] Comment on above: Performed By: #### C BC #### [facility] [address] [place] [address] Dr. Jeimy Tenorio IG % 0.3 % Normal 0.0-0.5 [facility] Comment on above: Performed By: #### C BC #### [facility] [address] [place] [address] Dr. Jeimy Tenorio LYMPH # 1.7 103/ul Normal 1.2-3.8 [facility] Comment on above: Performed By: #### C BC #### [facility] [address] [place] [address] Dr. Jeimy Tenorio Lymphocytes/100 WBC (Bld) 22.9 % Normal 20.5-60.0 [facility] Comment on above: Performed By: #### C BC #### [facility] [address] [place] [address] Dr. Jeimy Tenorio MANUAL DIFF REQ NO Normal [facility] Comment on above: Performed By: #### C BC #### [facility] [address] [place] [address] Dr. Jeimy Tenorio MCH (RBC) [Entitic mass] 33.5 pg Normal 25.9-34.0 [facility] Comment on above: Performed By: #### C BC #### [facility] [address] [place] [address] Dr. Jeimy Tenorio MCHC (RBC) [Mass/Vol] 34.1 g/dL Normal 29.9-35.2 [facility] Comment on above: Performed By: #### C BC #### [facility] [address] [place] [address] Dr. Jeimy Tenorio MCV (RBC) [Entitic vol] 98.2 fL Critically high 80.0-94.0 [facility] Comment on above: Performed By: #### C BC #### [facility] [address] [place] [address] Dr. Jeimy Tenorio MONO # 0.8 103/ul Normal 0.3-0.8 [facility] Comment on above: Performed By: #### C BC #### [facility] [address] [place] [address] Dr. Jeimy Tenorio Monocytes/100 WBC (Bld) 11.5 % Normal 1.7-12.0 [facility] Comment on above: Performed By: #### C BC #### [facility] [address] [place] [address] Dr. Jeimy Tenorio NEUT # 4.3 103/ul Normal 1.4-6.5 [facility] Comment on above: Performed By: #### C BC #### [facility] [address] [place] [address] Dr. Jeimy Tenorio Neutrophils/100 WBC (Bld) 59.8 % Normal 43.0-75.0 [facility] Comment on above: Performed By: #### C BC #### [facility] [address] [place] [address] Dr. Jeimy Tenorio Platelet mean volume (Bld) [Entitic vol] 9.8 fL Normal 9.5-13.5 [facility] Comment on above: Performed By: #### C BC #### [facility] [address] [place] [address] Dr. Jeimy Tenorio PLT 181 103/ul Normal 150-450 [facility] Comment on above: Performed By: #### C BC #### [facility] [address] [place] [address] Dr. Jeimy Tenorio RBC 3.88 106/ul Critically low 4.70-6.10 [facility] Comment on above: Performed By: #### C BC #### [facility] [address] [place] [address] Dr. Jeimy Tenorio WBC 7.2 103/ul Normal 4.0-11.0 [facility] Comment on above: Performed By: #### C BC #### [facility] [address] [place] [address] Dr. Jeimy Tenorio D-DIMERon 06-11-2022 D-DIMER 0.63 mg/L FEU Critically high <=0.59 [facility] Comment on above: Performed By: #### D DIM #### [facility] [address] [place] [address] Dr. Jeimy Tenorio D-DIMER COMMENTS SEE BELOW Normal [facility] Comment on above: Result Comment: Incr eases [...] hospitalization. Performed By: #### D DIM #### [facility] [address] [place] [address] Dr. Jeimy Tenorio PROF 14(COMP METB)on 022 Albumin [Mass/Vol] 3.3 g/dL Critically low 3.4-5.0 [facility] Comment on above: Performed By: #### C BC #### [facility] [address] [place] [address] Dr. Jeimy Tenorio Albumin/Globulin [Mass ratio] 0.8 {ratio} Normal [facility] Comment on above: Performed By: #### C BC #### [facility] [address] [place] [address] Dr. Jeimy Tenorio ALP [Catalytic activity/Vol] 160 U/L Critically high 46-116 [facility] Comment on above: Performed By: #### C BC #### [facility] [address] [place] [address] Dr. Jeimy Tenorio ALT [Catalytic activity/Vol] 26 U/L Normal 16-63 [facility] Comment on above: Performed By: #### C BC #### [facility] [address] [place] [address] Dr. Jeimy Tenorio Anion gap [Moles/Vol] 10.4 mmol/L Normal [facility] Comment on above: Performed By: #### C BC #### [facility] [address] [place] [address] Dr. Jeimy Tenorio AST [Catalytic activity/Vol] 16 U/L Normal 15-37 [facility] Comment on above: Performed By: #### C BC #### [facility] [address] [place] [address] Dr. Jeimy Tenorio Bilirubin [Mass/Vol] 0.2 mg/dL Normal 0.2-1.0 [facility] Comment on above: Performed By: #### C BC #### [facility] [address] [place] [address] Dr. Jeimy Tenorio Calcium [Mass/Vol] 8.2 mg/dL Critically low 8.5-10.1 [facility] Comment on above: Performed By: #### C BC #### [facility] [address] [address] [address] Jeimy Tenorio Chloride [Moles/Vol] 105 mmol/L Normal 98-107 [facility] Comment on above: Performed By: #### C BC #### [facility] [address] [place] [address] Dr. Jeimy Tenorio CO2 [Moles/Vol] 26.5 mmol/L Normal 21.0-32.0 [facility] Comment on above: Performed By: #### C BC #### [facility] [address] [place] [address] Dr. Jeimy Tenorio Creatinine [Mass/Vol] 0.96 mg/dL Normal 0.70-1.30 [facility] Comment on above: Performed By: #### C BC #### [facility] [address] [place] [address] Dr. Jeimy Tenorio EGFR-AF ANGUILLAN >60 Normal >=60 [facility] Comment on above: Performed By: #### C BC #### [facility] [address] [place] [address] Dr. Jeimy Tenorio EGFR-NON AF ANGUILLAN >60 Normal >=60 [facility] Comment on above: Performed By: #### C BC #### [facility] [address] [place] [address] Dr. Jeimy Tenorio Globulin (S) [Mass/Vol] 4.0 g/dL Normal [facility] Comment on above: Performed By: #### C BC #### [facility] [address] [place] [address] Dr. Jeimy Tenorio Glucose [Mass/Vol] 140 mg/dL Critically high 74-106 [facility] Comment on above: Performed By: #### C BC #### [facility] [address] [place] [address] Dr. Jeimy Tenorio Potassium [Moles/Vol] 3.9 mmol/L Normal 3.5-5.1 [facility] Comment on above: Performed By: #### C BC #### [facility] [address] [place] [address] Dr. Jeimy Tenorio Protein [Mass/Vol] 7.3 g/dL Normal 6.4-8.2 [facility] Comment on above: Performed By: #### C BC #### [facility] [address] [place] [address] Dr. Jeimy Tenorio Sodium [Moles/Vol] 138 mmol/L Normal 136-145 [facility] Comment on above: Performed By: #### C BC #### [facility] [address] [address] [address] Jeimy Tenorio Urea nitrogen [Mass/Vol] 15.0 mg/dL Normal 7.0-18.0 [facility] Comment on above: Performed By: #### C BC #### [facility] [address] [place] [address] Dr. Jeimy Tenorio Urea nitrogen/Creatinine [Mass ratio] 15.6 mg/mg Normal [facility] Comment on above: Performed By: #### C BC #### [facility] [address] [place] [address] Dr. Jeimy Tenorio [facility] METABOLIC [facility] 10-30-2021 Albumin [Mass/Vol] 4.3 g/dL Normal 3.6-5.1 [facility] Comment on above: Performed By: #### 7 , 7599, 12910 #### [facility] [place] [address] [employer]: Yash Campuzano MD Albumin/Globulin [Mass ratio] 1.3 {ratio} Normal 1.0-2.5 [facility] Comment on above: Performed By: #### 7 , 7599, 15986 #### [facility] [place] [address] [employer]: Yash Campuzano MD ALP [Catalytic activity/Vol] 152 U/L High 35-144 [facility] Comment on above: Performed By: #### 7 , 7599, 78852 #### [facility] [place] [address] [employer]: Yash Campuzano MD ALT [Catalytic activity/Vol] 30 U/L Normal 9-46 [facility] Comment on above: Performed By: #### 7 13, 7600, 58603 #### [facility] of [address], [address] [place] [address] [employer]: Yash Campuzano MD AST [Catalytic activity/Vol] 26 U/L Normal 10-35 [facility] Comment on above: Performed By: #### 7 13, 7600, 14135 #### [facility] of [address], [address] [place] [address] [employer]: Yash Campuzano MD Bilirubin [Mass/Vol] 0.4 mg/dL Normal 0.2-1.2 [facility] Comment on above: Performed By: #### 7 13, 7599, 74500 #### [facility] of [address], [address] [place] [address] [employer]: Yash Campuzano MD BUN/CREATININE RATIO NOT APPLICABLE Normal 6-22 [facility] Comment on above: Performed By: #### 7 13, 7599, 80028 #### [facility] of [address], [address] [place] [address] [employer]: Yash Campuzano MD Calcium [Mass/Vol] 8.8 mg/dL Normal 8.6-10.3 [facility] Comment on above: Performed By: #### 7 13, 7600, 92281 #### [facility] of [address], [address] [place] [address] [employer]: Yash Campuzano MD Chloride [Moles/Vol] 104 mmol/L Normal 98-110 [facility] Comment on above: Performed By: #### 7 13, 7600, 61245 #### [facility] of [address], [address] [place] [address] [employer]: Yash Campuzano MD CO2 [Moles/Vol] 25 mmol/L Normal 20-32 [facility] Comment on above: Performed By: #### 7 13, 7600, 85010 #### [facility] of [address], [address] [place] [address] [employer]: Yash Campuzano MD Creatinine [Mass/Vol] 0.76 mg/dL Normal 0.70-1.[address] [facility] [address] [facility] Comment on above: Result Comment: For patients >49 years of age, the reference limit for Creatinine is approximately 13% higher for people identified as -Beninese. Performed By: #### 7 , 0, 52317 #### [facility] [address], [address] [place] [address] [employer]: Yash Campuzano MD eGFR NON-AFR. ANGUILLAN 95 mL/min/1.73m2 Normal > OR = 60 [facility] Comment on above: Performed By: #### 7 , 7599, 75856 #### [facility] [address], [address] [place] [address] [employer]: Yash Campuzano MD GFR/1.73 sq M.predicted among blacks MDRD (S/P/Bld) [Vol rate/Area] 110 mL/min/{1.73_m2} Normal > OR = 60 [facility] Comment on above: Performed By: #### 7 , 7599, 89454 #### [facility] [address], [address] [place] [address] [employer]: Yash Campuzano MD Globulin (S) [Mass/Vol] 3.2 g/dL Normal 1.9-3.7 [facility] Comment on above: Performed By: #### 7 , 7599, 50418 #### [facility] [address], [address] [place] [address] [employer]: Yash Campuzano MD Glucose [Mass/Vol] 103 mg/dL High 65-99 [facility] Comment on above: Result Comment: Fasting reference interval For someone without known diabetes, a glucose value between 100 and 125 mg/dL is consistent with prediabetes and should be confirmed with a follow-up test. Performed By: #### 7 , 7599, 58096 #### [facility] [address], [address] [place] [address] [employer]: Yash Campuzano MD Potassium [Moles/Vol] 4.7 mmol/L Normal 3.5-5.[address] [facility] Comment on above: Performed By: #### 7 13, 0, 74881 #### [facility] of [address], [address] [place] [address] [employer]: Yash Campuzano MD Protein [Mass/Vol] 7.5 g/dL Normal 6.1-8.1 [facility] Comment on above: Performed By: #### 7 13, 0, 42782 #### [facility] of [address], [address] [place] [address] [employer]: Yash Campuzano MD Sodium [Moles/Vol] 137 mmol/L Normal 135-146 [facility] Comment on above: Performed By: #### 7 13, 7600, 84838 #### [facility] of [address], [address] [place] [address] [employer]: Yash Campuzano MD Urea nitrogen [Mass/Vol] 15 mg/dL Normal 7-25 [facility] Comment on above: Performed By: #### 7 13, 7599, 73484 #### [facility] of [place] [address] [employer]: Yash Campuzano MD LIPID PANEL, [facility] 12-1 Cholesterol [Mass/Vol] 180 mg/dL Normal <200 [facility] Comment on above: Order Comment: FASTI NG:YES FASTING: YES Performed By: #### 7 13, 7599, 81913 #### [facility] of [address], [address] [place] [address] [employer]: Yash Campuzano MD Cholesterol in HDL [Mass/Vol] 50 mg/dL Normal > OR = 40 [facility] Comment on above: Order Comment: FASTI NG:YES FASTING: YES Performed By: #### 7 13, 7600, 99584 #### [facility] of [address], [address] [place] [address] [employer]: Yash Campuzano MD Cholesterol in LDL [Mass/Vol] [...] of LDL-C. Gennaro SS et al. KO. 2013;310(88): 9975-4635 (http://education.Octonius/faq/AOD486) Performed By: #### 7 , 0, 72685 #### [facility] [address], [address] [place] [address] [employer]: Yash Campuzano MD Cholesterol.total/Chol esterol in HDL [Mass ratio] 3.6 {ratio} Normal <5.0 [facility] Comment on above: Order Comment: FASTI NG:YES FASTING: YES Performed By: #### 7 , 7599, 33126 #### [facility] [address], [address] [place] [address] [employer]: Yash Campuzano MD NON HDL CHOLESTEROL 130 mg/dL (calc) High <130 [facility] Comment on above: Order Comment: FASTI NG:YES FASTING: YES Result Comment: For patients with diabetes plus 1 major ASCVD risk factor, treating to a non-HDL-C goal of <100 mg/dL (LDL-C of <70 mg/dL) is considered a therapeutic option. Performed By: #### 7 , 7599, 89666 #### [facility] [address], [address] [place] [address] [employer]: Yash Campuzano MD Triglyceride [Mass/Vol] 280 mg/dL High <150 [facility] Comment on above: Order Comment: FASTI NG:YES FASTING: YES Result Comment: If a non-fasting specimen was collected, consider repeat triglyceride testing on a fasting specimen if clinically indicated. Marquise et al. J. of Clin. Lipidol. 2015;9:129-169. Performed By: #### 7 , 7599, 78015 #### [facility] of [address], [address] [place] [address] [employer]: Yash Campuzano MD PHENYTOINon 10-30-2021 Phenytoin [Mass/Vol] 18.9 ug/mL Normal 10.0-20.0 [facility] Comment on above: Performed By: #### 7 13, 7600, 85865 #### [facility] of [address], [address] [place] [address] [employer]: Yash Campuzano MD CBC (INCLUDES DIFF/PLT)on Basophils (Bld) [#/Vol] 0.071 10*3/uL Normal 0-200 [facility] Comment on above: Performed By: #### 7 13, 760, 6399 #### [facility] of [address], [address] [place] [address] [employer]: Yash Campuzano MD Basophils/100 WBC (Bld) 1.2 % Normal [facility] Comment on above: Performed By: #### 7 13, 760, 6399 #### [facility] of [address], [address] [place] [address] [employer]: Yash Campuzano MD Eosinophils (Bld) [#/Vol] 0.277 10*3/uL Normal 15-500 [facility] Comment on above: Performed By: #### 7 13, 7600, 6399 #### [facility] of [address], [address] [place] [address] [employer]: Yash Campuzano MD Eosinophils/100 WBC (Bld) 4.7 % Normal [facility] Comment on above: Performed By: #### 7 13, 7600, 6399 #### [facility] of [place] [address] [employer]: Yash Campuzano MD Erythrocyte distribution width (RBC) [Ratio] 12.8 % Normal 11.0-15.0 [facility] Comment on above: Performed By: #### 7 13, 760, 6399 #### [facility] [place] [address] [employer]: Yash Campuzano MD Hematocrit (Bld) [Volume fraction] 42.1 % Normal 38.5-50.0 [facility] Comment on above: Performed By: #### 7 , 7599, 6399 #### [facility] of [address], [address] [place] [address] [employer]: Yash Campuzano MD Hemoglobin (Bld) [Mass/Vol] 14.9 g/dL Normal 13.2-17.1 [facility] Comment on above: Performed By: #### 7 , 7599, 6399 #### [facility] of [place] [address] [employer]: Yash Campuzano MD Lymphocytes (Bld) [#/Vol] 1.068 10*3/uL Normal 850-3900 [facility] Comment on above: Performed By: #### 7 , 7599, 6399 #### [facility] of [place] [address] [employer]: Yash Campuzano MD Lymphocytes/100 WBC (Bld) 18.1 % Normal [facility] Comment on above: Performed By: #### 7 , 7599, 6399 #### [facility] of [place] [address] [employer]: Yash Campuzano MD MCH (RBC) [Entitic mass] 32.9 pg Normal 27.0-33.0 [facility] Comment on above: Performed By: #### 7 , 7599, 6399 #### [facility] of [address], [address] [place] [address] [employer]: Yash Campuzano MD MCHC (RBC) [Mass/Vol] 35.4 g/dL Normal 32.0-36.[address] [facility] Comment on above: Performed By: #### 7 , 7599, 6399 #### [facility] of [place] [address] [employer]: Yash Campuzano MD MCV (RBC) [Entitic vol] 92.9 fL Normal 80.0-100.0 [facility] Comment on above: Performed By: #### 7 13, 7599, 6399 #### [place] [address] [employer]: Yahs Campuzano MD Monocytes (Bld) [#/Vol] 0.531 10*3/uL Normal 200-950 [facility] Comment on above: Performed By: #### 7 13, 7599, 6399 #### [facility] of [address], [address] [place] [address] [employer]: Yash Campuzano MD Monocytes/100 WBC (Bld) 9.0 % Normal [facility] Comment on above: Performed By: #### 7 13, 7599, 6399 #### [facility] of [place] [address] [employer]: Yash Campuzano MD Neutrophils (Bld) [#/Vol] 3.953 10*3/uL Normal 6715-1335 [facility] Comment on above: Performed By: #### 7 13, 7599, 6399 #### [facility] of [place] [address] [employer]: Yash Campuzano MD Neutrophils/100 WBC (Bld) 67 % Normal [facility] Comment on above: Performed By: #### 7 13, 7599, 6399 #### [facility] of [place] [address] [employer]: Yash Campuzano MD Platelet mean volume (Bld) [Entitic vol] 11.0 fL Normal 7.5-12.5 [facility] Comment on above: Performed By: #### 7 13, 760, 6399 #### [place] [address] [employer]: Yash Campuzano MD Platelets (Bld) [#/Vol] 200 10*3/uL Normal 140-400 [facility] Comment on above: Performed By: #### 7 13, 7600, 6399 #### [facility] [place] [address] [employer]: Yash Campuzano MD RBC (d) [#/Vol] 4.53 10*6/uL Normal 4.20-5.80 [facility] Comment on above: Performed By: #### 7 13, 7599, 6399 #### [facility] [address], [address] [place] [address] [employer]: Yash Campuzano MD WBC (d) [#/Vol] 5.9 10*3/uL Normal 3.8-10.8 [facility] Comment on above: Performed By: #### 7 13, 760, 6399 #### [facility] [place] [address] [employer]: Yash Campuzano MD LIPID PANEL, [address] Cholesterol [Mass/Vol] 218 mg/dL High <200 [facility] Comment on above: Order Comment: FASTI NG:YES FASTING: YES Performed By: #### 7 13, 7600, 6399 #### [facility] [place] [address] [employer]: Yash Campuzano MD Cholesterol in HDL [Mass/Vol] 55 mg/dL Normal > OR = 40 [facility] Comment on above: Order Comment: FASTI NG:YES FASTING: YES Performed By: #### 7 13, 760, 6399 #### [facility] of [place] [address] [employer]: Yash Campuzano MD Cholesterol in LDL [Mass/Vol] [...] LDL-C. Gennaro SS et al. KO. 2013;310(19): 2567-4168 (http://education.Octonius/faq/CVK278) Performed By: #### 7 , 1610, 4355 #### [facility] [address], [address] [place] [address] [employer]: Yash Campuzano MD Cholesterol.total/Chol esterol in HDL [Mass ratio] 4.0 {ratio} Normal <5.0 [facility] Comment on above: Order Comment: FASTI NG:YES FASTING: YES Performed By: #### 7 , 285, 3887 #### [facility] [address], [address] [place] [address] [employer]: Yash Campuzano MD NON HDL CHOLESTEROL 163 mg/dL (calc) High <130 [facility] Comment on above: Order Comment: FASTI NG:YES FASTING: YES Result Comment: For patients with diabetes plus 1 major ASCVD risk factor, treating to a non-HDL-C goal of <100 mg/dL (LDL-C of <70 mg/dL) is considered a therapeutic option. Performed By: #### 7 , 320, 6204 #### [facility] [place] [address] [employer]: Yash Campuzano MD Triglyceride [Mass/Vol] 200 mg/dL High <150 [facility] Comment on above: Order Comment: FASTI NG:YES FASTING: YES Result Comment: If a non-fasting specimen was collected, consider repeat triglyceride testing on a fasting specimen if clinically indicated. Marquise et al. J. of Clin. Lipidol. 2015;9:129-169. Performed By: #### 7 , 159, 5962 #### [facility] [address], [address] [place] [address] [employer]: Yash Campuzano MD PHENYTOINon 04-18-2021 Phenytoin [Mass/Vol] 25.0 ug/mL High 10.0-20.0 [facility] Comment on above: Performed By: #### 7 19, 2843, 1777 #### [facility] [address], [address] [place] [address] [employer]: Yash Campuzano MD APTTon 11-20-2020 aPTT Coag (Bld) [Time] 33.4 s Normal 25.0-35.0 [facility] Comment on above: Result Comment: [...] THIS PURPOSE. Performed By: #### 5 6101, 85676 ####[facility] BNP EDon 11-20-2020 Natriuretic peptide B (Bld) [Mass/Vol] 111 pg/mL High 0-100 [facility] Comment on above: Result Comment: Give n the appropriate clinical setting a BNP result of >100 pg/mL indicates congestive heart failure. Performed By: #### 3 0935 #### [facility] [address] CBC W/DIFFon 11-20-2020 ABS IMM GRANS 0.0 10*3/uL Normal 0.0-0.2 [facility] Comment on above: Performed By: #### 5 0103 ####[facility] ABS NEUTROPHILS 3.9 10*3/uL Normal 1.6-7.6 [facility] Comment on above: Performed By: #### 5 0103 ####[facility] [place] [address], [facility] Basophils (Bld) [#/Vol] 0.1 10*3/uL Normal 0.0-0.2 [facility] Comment on above: Performed By: #### 5 0103 ####[facility] [facility] [place] [address], [facility] Basophils/100 WBC (Bld) 1.0 % Normal 0.0-1.0 [facility] Comment on above: Performed By: #### 5 0103 ####[facility] [facility] [place] [address], [facility] Eosinophils (Bld) [#/Vol] 0.3 10*3/uL Normal 0.0-0.5 [facility] Comment on above: Performed By: #### 5 0103 ####[facility] [facility] [place] [address], [facility] Eosinophils/100 WBC (Bld) 5.1 % Normal 0.0-6.0 [facility] Comment on above: Performed By: #### 5 0103 ####[facility].[address] Erythrocyte distribution width (RBC) [Ratio] 13.1 % Normal 11.5-15.0 [facility] Comment on above: Performed By: #### 5 0103 ####[facility].[address] Hematocrit (Bld) [Volume fraction] 45.4 % Normal 39.0-50.0 [facility] Comment on above: Performed By: #### 5 0103 ####[facility] [facility] [place] [address], [facility] Hemoglobin (Bld) [Mass/Vol] 14.8 g/dL Normal 13.0-17.0 [facility] Comment on above: Performed By: #### 5 3 ####[facility] [facility] [place] [address], [facility] IMMATURE GRANS 0.3 % Normal 0.0-1.0 [facility] Comment on above: Performed By: #### 5 0103 ####[facility] [facility].[address] Lymphocytes (Bld) [#/Vol] 1.0 10*3/uL Low 1.2-4.0 [facility] Comment on above: Performed By: #### 5 0103 ####[facility] [facility].[address] Lymphocytes/100 WBC (Bld) 17.5 % Low 20.0-45.0 [facility] Comment on above: Performed By: #### 5 3 ####[facility] [facility].[address] MCH (RBC) [Entitic mass] 32.5 pg Normal 27.0-33.0 [facility] Comment on above: Performed By: #### 5 3 ####[facility] MCHC (RBC) [Mass/Vol] 32.6 g/dL Normal 32.0-35.0 [facility] Comment on above: Performed By: #### 5 3 ####[facility] [facility].[address] MCV (RBC) [Entitic vol] 99.6 fL High 82.0-98.0 [facility] Comment on above: Performed By: #### 5 3 ####[facility] [facility].[address] Monocytes (Bld) [#/Vol] 0.6 10*3/uL Normal 0.1-1.0 [facility] Comment on above: Performed By: #### 3 ####[facility] [place] [address], [facility] MONOS 9.4 % Normal 5.0-12.0 [facility] Comment on above: Performed By: #### 5 0103 ####[facility] [facility] [place] [address], [facility] Neutrophils/100 WBC (Bld) 66.7 % Normal 40.0-72.0 [facility] Comment on above: Performed By: #### 5 0103 ####[facility] [facility].[address] Nucleated RBC/100 WBC (Bld) [Ratio] 0 % Normal 0-0 [facility] Comment on above: Performed By: #### 5 0103 ####[facility] PLAT CNT 175 10*3/uL Normal 150-400 [facility] Comment on above: Performed By: #### 5 0103 ####[facility] [facility].[address] RBC (Bld) [#/Vol] 4.56 10*6/uL Normal 4.20-5.70 The [facility] Comment on above: Performed By: #### 5 0103 ####[facility] [facility].[address] WBC (Bld) [#/Vol] 5.88 10*3/uL Normal 4.00-10.60 The [facility] Comment on above: Performed By: #### 5 0103 ####[facility] COMP METABOLIC PANELon 11-20 Albumin [Mass/Vol] 4.0 g/dL Normal 3.5-5.7 [facility] Comment on above: Performed By: #### 0 0121, 92426, 07648, 06304 #### [facility] [address] [facility] [place] [address], [place] ALKALINE PHOSPH 130 IU/L High 34-104 [facility] Comment on above: Performed By: #### 0 0121, 52471, 40790, 28990 #### [facility] [address] [place] [address], [place] ALT [Catalytic activity/Vol] 18 U/L Normal 7-52 [facility] Comment on above: Performed By: #### 0 0121, 26195, 09662, 88204 #### [facility] [address] [place] [address], [place] AST [Catalytic activity/Vol] 19 U/L Normal 13-39 [facility] Comment on above: Performed By: #### 0 0121, 56342, 90319, 69528 #### [facility] [address] [place] [address], [place] Bilirubin [Mass/Vol] 0.4 mg/dL Normal 0.3-1.0 [facility] Comment on above: Performed By: #### 0 0121, 52406, 08497, 75592 #### [facility] [address] [place] [address], [place] Calcium [Mass/Vol] 9.0 mg/dL Normal 8.6-10.3 [facility] Comment on above: Performed By: #### 0 0121, 56119, 21036, 32987 #### [facility] [address] [place] [address], [place] Chloride [Moles/Vol] 103 mmol/L Normal 98-107 [facility] Comment on above: Performed By: #### 0 0121, 92777, 33823, 89994 #### [facility] [address] [place] [address], [place] CO2 [Moles/Vol] 28 mmol/L Normal 21-31 The [facility] Comment on above: Performed By: #### 0 0121, 97845, 39144, 16976 #### [facility] [address] [place] [address], [place] Creatinine [Mass/Vol] 0.77 mg/dL Normal 0.70-1.30 [facility] Comment on above: Performed By: #### 0 0121, 41490, 24778, 03097 #### [facility] [address] [place] [address], [place] GFR/1.73 sq M.predicted among blacks MDRD (S/P/Bld) [Vol rate/Area] mL/min/{1.73_m2} Normal >60 [facility] Comment on above: Performed By: #### 0 0121, 76133, 14778, 09339 #### [facility] [address] [place] [address], [place] GFR/1.73 sq M.predicted among non-blacks MDRD (S/P/Bld) [Vol rate/Area] mL/min/{1.73_m2} Normal >60 [facility] Comment on above: Performed By: #### 0 0121, 35642, 82303, 96080 #### [facility] [address] [place] [address], [place] Glucose [Mass/Vol] 88 mg/dL Normal 70-100 [facility] Comment on above: Performed By: #### 0 0121, 10241, 95681, 91656 #### [facility] [address] [place] [address], [place] Potassium [Moles/Vol] 4.9 mmol/L Normal 3.5-5.1 [facility] Comment on above: Performed By: #### 0 0121, 11546, 06608, 19617 #### [facility] [address] [place] [address], [place] Protein [Mass/Vol] 7.3 g/dL Normal 6.0-8.3 [facility] Comment on above: Performed By: #### 0 0121, 49840, 09166, 45225 #### [facility] [address] [facility] [place] [address], [facility] Sodium [Moles/Vol] 138 mmol/L Normal 136-145 [facility] Comment on above: Performed By: #### 0 0121, 82339, 35448, 39925 #### [facility] [address] [place] [place] [address], [facility] Urea nitrogen [Mass/Vol] 15 mg/dL Normal 7-25 [facility] Comment on above: Performed By: #### 0 0121, [id number], [id number], [id number] #### [facility] [address] [facility] [place] [address], [facility] CTA HEADon 11-20-2020 CTA HEAD [facility] Department of Radiology [address] [place] [id number] Patient Name: NAZARIO CORTES : 1955 Sex: M Age: Race: White Pt. Location: [facility] Patient Status: E Ordered Date: 11/20/2020 11:20:00 [...] stenosis of the major vessels of the [place]. origin of bilateral posterior cerebral arteries. IMPRESSION: Normal CTA of the brain. All CT scans at this facility use dose modulation, iterative reconstruction, and/or weight based dosing when appropriate to reduce radiation dose to as low as reasonably achievable. Electronically signed: Dhaval Ghotra. Transcribed by: [email or web address], User Resident: Electronically Signed by: DHAVAL GHOTRA @ 11/20/2020 12:58 PM Normal [facility] Comment on above: Order Comment: Bleed CTA NECKon 11-20-2020 CTA NECK [facility] Department of Radiology [address] [place] [id number] Patient Name: NAZARIO CORTES : 1955 Sex: M Age: Race: White Pt. Location: [facility] Patient Status: E Ordered Date: 11/20/2020 11:20:00 [...] viewed on a separate workstation. The [place] Symptomatic Carotid Endarterectomy Trial (NASCET) method for [...] achievable Electronically signed: Dhaval Ghotra. Transcribed by: [email or web address], User Resident: Electronically Signed by: DHAVAL GHOTRA @ 11/20/2020 12:57 PM Normal [facility] DIRECT BILIon 11-20-2020 Bilirubin.direct [Mass/Vol] 0.1 mg/dL Normal 0.0-0.2 [facility] Comment on above: Order Comment: Liver Battery conflicts with Comprehensive Metabolic Panel. Liver Battery canceled and Direct Bilirubin added. Performed By: #### 0 [id number], [id number], [id number], [id number] #### [facility] [address] [facility] [place] [address], [facility] LIPASE BLOODon 11-20-2020 LIPASE 27 Units/L Normal 11-82 [facility] Comment on above: Performed By: #### 0 0121, [id number], 64159, [id number] #### [facility] [address] POC SARS COV2 ANTIGEN NEGATI VEon 11-20-2020 POC SARS COV2 ANTIGEN N Negative Normal NEGATIVE [facility] Comment on above: Result Comment: Test performed on [employer] System for rapid detection of SARS-CoV-2. Negative [...] management. Performed By: #### 3 1919 #### [address] PORTABLE CHEST 1 VIEWon 10-23 PORTABLE CHEST 1 VIEW [facility] Department of Radiology [address] [place] [id number] Patient Name: NAZARIO CORTES : 1955 Sex: M Age: Race: White Pt. Location: [facility] Patient Status: E Ordered Date: 11/20/2020 11:20:00 [...] reports Electronically signed: Dhaval Ghotra. Transcribed by: [email or web address], User Resident: JESSENIA ALFORD Electronically Signed by: DHAVAL GHOTRA @ 11/20/2020 12:32 PM I personally read this/these film(s) with this resident Normal [facility] Comment on above: Order Comment: evalu ate for Pneumonia PROTHROMBIN TIMEon 0 INR Coag (PPP) [Relative time] 0.95 {INR} Normal 0.91-1.16 [facility] Comment on above: Result Comment: ACCC P RECOMMENDED INR FOR WARFARIN THERAPY --------- ------- CONDITION INR PROPHYLAXIS OF VENOUS THROMBOSIS 2-3 (HIGH-RISK SURGERY) TREATMENT OF VENOUS THROMBOSIS 2-3 TREATMENT OF PULMONARY EMBOLISM 2-3 PREVENTION OF SYSTEMIC EMBOLISM: 2-3 ACUTE MYOCARDIAL INFARCTION TISSUE HEART VALVES VALVULAR HEART DISEASE ATRIAL FIBRILLATION RECURRENT SYSTEMIC EMBOLISM MECHANICAL HEART VALVE 2.5-3.5 FROM: ORAL ANTICOAGULANTS. MECHANISM OF ACTION, CLINICAL EFFECTIVENESS, AND OPTIMAL THERAPEUTIC RANGE. CHEST 1995;108:231S-246S. Performed By: #### 5 [id number], [id number] ####[facility] [place] [address], [facility] PT Coag (PPP) [Time] 12.7 s Normal 12.3-14.8 [facility] Comment on above: Result Comment: ALL RESULTS MUST BE INTERPRETED WITH RESPECT TO BLOOD DRAWING ARTIFACT OR DILUTION ERROR OF ANTICOAGULANT AT THE TIME OF SAMPLING. Performed By: #### 5 6101, [id number] ####[facility] [address] TROPONIN-Ion 11-20-2020 Troponin I.cardiac [Mass/Vol] 0.00 ng/mL Normal 0.00-0.04 [facility] Comment on above: Order Comment: No: D o not add to previous draw Result Comment: REFE RENCE RANGES: 0.00 - 0.14 ng/ml NEGATIVE 0.15 - 0.25 ng/ml INDETERMINATE > 0.25 ng/ml INDICATIVE OF AN M.I. Performed By: #### 3 5200 #### [facility] [address] Troponin I.cardiac [Mass/Vol] 0.00 ng/mL Normal 0.00-0.04 [facility] Comment on above: Result Comment: REFE RENCE RANGES: 0.00 - 0.14 ng/ml NEGATIVE 0.15 - 0.25 ng/ml INDETERMINATE > 0.25 ng/ml INDICATIVE OF AN M.I. Performed By: #### 0 0121, 30401, 27055, 81841 #### [facility] [address] [place] [address], [facility] Vital Signs Date Time Vital Sign Value Performing Clinician Facility 11-22-2024 15:42-0500 Body height 185.4 cm Jignesh Gonsalez MD Work Phone: [facility] 11-22-2024 15:42-0500 Body mass index (BMI) [Ratio] 41.16 kg/m2 Jignesh Gonsalez MD Work Phone: [facility] 11-22-2024 15:42-0500 Body temperature 97.5 [degF] Jignesh Gonsalez MD Work Phone: [facility] 11-22-2024 15:42-0500 Body weight 141.52 kg Jignesh Gonsalez MD Work Phone: [facility] 11-22-2024 15:42-0500 Diastolic blood pressure 66 mm[Hg] Jignesh Gonsalez MD Work Phone: [facility] 11-22-2024 15:42-0500 Heart rate 33 /min Jignesh Gonsalez MD Work Phone: [facility] 11-22-2024 15:42-0500 Respiratory rate 20 /min Jignesh Gonsalez MD Work Phone: [facility] 11-22-2024 15:42-0500 SaO2% (BldA) [Mass fraction] 89 % Jignesh Gonsalez MD Work Phone: [facility] 11-22-2024 15:42-0500 Systolic blood pressure 148 mm[Hg] Jignesh Gonsalez MD Work Phone: [facility] 10-25-2024 15:32-0500 Body height 185.4 cm Jignesh Gonsalez MD Work Phone: [facility] 10-25-2024 15:32-0500 Body mass index (BMI) [Ratio] 40.9 kg/m2 Jignesh Gonsalez MD Work Phone: [facility] 10-25-2024 15:32-0500 Body temperature 97.5 [degF] Jignesh Gonsalez MD Work Phone: [facility] 10-25-2024 15:32-0500 Body weight 140.62 kg Jignesh Gosnalez MD Work Phone: [facility] 10-25-2024 15:32-0500 Diastolic blood pressure 70 mm[Hg] Jignesh Gonsalez MD Work Phone: [facility] 10-25-2024 15:32-0500 Heart rate 87 /min Jignesh Gonsalez MD Work Phone: [facility] 10-25-2024 15:32-0500 Respiratory rate 22 /min Jignesh Gonsalez MD Work Phone: [facility] 10-25-2024 15:32-0500 SaO2% (BldA) [Mass fraction] 90 % Jignesh Gonsalez MD Work Phone: [facility] 10-25-2024 15:32-0500 Systolic blood pressure 150 mm[Hg] Jignseh Gonsalez MD Work Phone: [facility] 09-07-2024 14:54-0400 Body height 185.42 cm MD Jignesh Gonsalez Work Phone: [facility] 09-07-2024 14:54-0400 Body mass index (BMI) [Ratio] 39.2 kg/m2 MD Jignesh Gonsalez Work Phone: [facility] 09-07-2024 14:54-0400 Body temperature 96.8 [degF] MD Jignesh Gonsalez Work Phone: [facility] 09-07-2024 14:54-0400 Body weight 134.94 kg MD Jignesh Gonsalez Work Phone: [facility] 09-07-2024 14:54-0400 Diastolic blood pressure 78 mm[Hg] MD Jignesh Gonsalez Work Phone: [facility] 09-07-2024 14:54-0400 Heart rate 93 /min MD Jignesh Gonsalez Work Phone: [facility] 09-07-2024 14:54-0400 Respiratory rate 20 /min MD Jignesh Gonsalez Work Phone: [facility] 09-07-2024 14:54-0400 SaO2% (BldA) [Mass fraction] 94 % MD Jignesh Gonsalez Work Phone: [facility] 09-07-2024 14:54-0400 Systolic blood pressure 119 mm[Hg] MD Jignesh Gonsalez Work Phone: [facility] 08-16-2024 10:34-0400 Body height 185.42 cm [facility] 08-16-2024 10:34-0400 Body mass index (BMI) [Ratio] 39 kg/m2 [facility] 08-16-2024 10:34-0400 Body temperature 96.8 [degF] [facility] 08-16-2024 10:34-0400 Body weight 134.26 kg [facility] 08-16-2024 10:34-0400 Diastolic blood pressure 77 mm[Hg] [facility] 08-16-2024 10:34-0400 Heart rate 73 /min [facility] 08-16-2024 10:34-0400 Respiratory rate 18 /min [facility] 08-16-2024 10:34-0400 SaO2% (BldA) [Mass fraction] 96 % [facility] 08-16-2024 10:34-0400 Systolic blood pressure 125 mm[Hg] [facility] 08-09-2024 13:10-0400 Body height 185.42 cm MD Jignesh Gonsalez Work Phone: [facility] 08-09-2024 13:10-0400 Body mass index (BMI) [Ratio] 39 kg/m2 MD Jignesh Gonsalez Work Phone: [facility] 08-09-2024 13:10-0400 Body temperature 98.5 [degF] MD Jignesh Gonsalez Work Phone: [facility] 08-09-2024 13:10-0400 Body weight 134.26 kg MD Jignesh Gonsalez Work Phone: [facility] 08-09-2024 13:10-0400 Diastolic blood pressure 64 mm[Hg] MD Jignesh Gonsalez Work Phone: [facility] 08-09-2024 13:10-0400 Heart rate 75 /min MD Jignesh Gonsalez Work Phone: [facility] 08-09-2024 13:10-0400 Respiratory rate 18 /min MD Jignesh Gonsalez Work Phone: [facility] 08-09-2024 13:10-0400 SaO2% (BldA) [Mass fraction] 93 % MD Jignesh Gonsalez Work Phone: [facility] 08-09-2024 13:10-0400 Systolic blood pressure 98 mm[Hg] MD Jignesh Gonsalez Work Phone: [facility] 05-15-2024 15:36-0400 Body height 185.42 cm MD Jignesh Gonsalez Work Phone: [facility] 05-15-2024 15:36-0400 Body mass index (BMI) [Ratio] 36.9 kg/m2 MD Jignesh Gonsalez Work Phone: [facility] 05-15-2024 15:36-0400 Body temperature 97.5 [degF] MD Jignesh Gonsalez Work Phone: [facility] 05-15-2024 15:36-0400 Body weight 127 kg MD Jignesh Gonsalez Work Phone: [facility] 05-15-2024 15:36-0400 Diastolic blood pressure 74 mm[Hg] MD Jignesh Gonsalez Work Phone: [facility] 05-15-2024 15:36-0400 Heart rate 81 /min MD Jignesh Gonsalez Work Phone: [facility] 05-15-2024 15:36-0400 Respiratory rate 18 /min MD Jignesh Gonsalez Work Phone: [facility] 05-15-2024 15:36-0400 SaO2% (BldA) [Mass fraction] 93 % MD Jignesh Gonsalez Work Phone: [facility] 05-15-2024 15:36-0400 Systolic blood pressure 119 mm[Hg] MD Jignesh Gonsalez Work Phone: [facility] 04-23-2024 13:06-0400 Body height 185.42 cm [facility] 04-23-2024 13:06-0400 Body mass index (BMI) [Ratio] 36.9 kg/m2 [facility] 04-23-2024 13:06-0400 Body temperature 97.3 [degF] [facility] 04-23-2024 13:06-0400 Body weight 127 kg [facility] 04-23-2024 13:06-0400 Diastolic blood pressure 56 mm[Hg] [facility] 04-23-2024 13:06-0400 Heart rate 80 /min [facility] 04-23-2024 13:06-0400 Respiratory rate 18 /min [facility] 04-23-2024 13:06-0400 SaO2% (BldA) [Mass fraction] 97 % [facility] 04-23-2024 13:06-0400 Systolic blood pressure 106 mm[Hg] [facility] 07-05-2023 10:00-0400 Body height 185.42 cm Luiz Riggs Other [employer] [facility] [employer] Other 07-05-2023 10:00-0400 Body mass index (BMI) [Ratio] 37.86 kg/m2 Luiz Riggs Other [employer] [facility] [employer] Other 07-05-2023 10:00-0400 Body weight 130.18 kg Luiz Riggs Other [employer] [facility] [employer] Other 07-05-2023 10:00-0400 Diastolic blood pressure 76 mm[Hg] Luiz Riggs Other [employer] [facility] [employer] Other 08-15-2023 10:00-0400 Systolic blood pressure 126 mm[Hg] Luiz Riggs Other [employer] Other 04-06-2022 17:40-0400 Body height 185.42 cm Neelam Morris Other [employer] Other 04-06-2022 17:40-0400 Body mass index (BMI) [Ratio] 36.15 kg/m2 Neelam Morris Other [employer] Other 04-06-2022 17:40-0400 Body temperature 98 [degF] Neelam Morris Other [employer] Other 04-06-2022 17:40-0400 Body weight 124.29 kg Neelam Morris Other [employer] Other 04-06-2022 17:40-0400 Diastolic blood pressure 69 mm[Hg] Neelam Morris Other [employer] Other 04-06-2022 17:40-0400 Respiratory rate 18 /min Neelam Morris Other [employer] Other 04-06-2022 17:40-0400 SaO2% (BldA) [Mass fraction] 95 % Neelam Morris Other [employer] Other 04-06-2022 17:40-0400 Systolic blood pressure 123 mm[Hg] Neelam Blackburnmond Other [employer] Other 12-28-2021 17:00-0500 Body height 185.42 cm Alex Bonilla Other [employer] Other 12-28-2021 17:00-0500 Body mass index (BMI) [Ratio] 37.47 kg/m2 Alex Bonilla Other [employer] Other 12-28-2021 17:00-0500 Body weight 128.82 kg Alex Bonilla Other [employer] Other Encounters Encounter Date Encounter Type Care Provider Facility Start: 11-28-2024 End: 11-28-2024 Refill Jignesh Gonsalez MD Work Phone: [facility] Comment on above: Seizure disorder (CM S/HCC) Start: 11-27-2024 End: 11-28-2024 ambulatory JOSE M REA [facility] Comment on above: Deviated nasal septu m (Primary Dx); Chronic rhinosinusitis Start: 11-27-2024 End: 11-27-2024 Patient encounter procedure Jose M Rea DO Work Phone: [facility] Comment on above: Screening for malign ant neoplasm of colon (Primary Dx) Start: 11-22-2024 End: 11-22-2024 Postop follow up visit related to original px Jignesh Gonsalez MD Work Phone: [facility] Comment on above: Medicare annual well ness visit, subsequent (Primary Dx); Dyslipidemia ([facility]/HCC); Encounter for long-term current use of medication; Screening PSA (prostate specific antigen); Class 3 severe obesity due to excess calories with serious comorbidity and body mass index (BMI) of 40.0 to 44.9 in adult (CMS/HCC); Major depressive disorder, recurrent episode, mild (HCC) (CMS/HCC); Seizure disorder (CMS/HCC); Malignant neoplasm of urinary bladder, unspecified site (CMS/HCC) Start: 11-22-2024 End: 11-22-2024 ambulatory JIGNESH GONSALEZ Not Available Start: 11-22-2024 End: 11-22-2024 Bamboo flowsheet Jignesh Gonsalez MD Work Phone: [facility] Start: 11-22-2024 End: 01-02-2025 Bamboo flowsheet Jignesh Gonsalez MD Work Phone: [facility] Start: 11-22-2024 End: 11-22-2024 Patient encounter procedure Jignesh Gonsalez MD Work Phone: [facility] Work Phone: Start: 11-15-2024 End: 11-15-2024 Refill Jignesh Gonsalez MD Work Phone: [facility] Comment on above: Degenerative lumbar spinal stenosis Start: 11-06-2024 End: 11-06-2024 Telephone encounter Imelda ALANIS Work Phone: [facility] Start: 10-30-2024 End: 10-30-2024 Clinical Support Chari Vela CCC-A Work Phone: [facility] Comment on above: Sensorineural hearin g loss, bilateral (Primary Dx) Start: 10-30-2024 End: 10-30-2024 Bamboo flowsheet Chari Means Faye CCC-A Work Phone: [facility] Start: 10-30-2024 End: 10-30-2024 Bamboo flowsheet Chari Clary Faye CCC-A Work Phone: [facility] Start: 10-25-2024 End: 10-25-2024 Office outpatient [...] (CMS/HCC) Start: 10-17-2024 End: 10-17-2024 ambulatory Yancy Lawson Facility:[facility] Start: 10-11-2024 End: 10-11-2024 Refill Jignesh Gonsalez MD Work Phone: [facility] Comment on above: Degenerative lumbar spinal stenosis Start: 09-25-2024 End: 09-25-2024 Refill Jignesh Gonsalez MD Work Phone: [facility] Comment on above: Seizure disorder (CM S/HCC) Start: 09-07-2024 End: 09-07-2024 ambulatory MD Jignesh Gonsalez Work Phone: [facility] Work Phone: Start: 09-07-2024 End: 09-07-2024 Patient encounter procedure MD Jignesh Gonsalez Work Phone: [facility] [place] Work Phone: Start: 08-16-2024 End: 08-16-2024 ambulatory [facility] Work Phone: Start: 08-16-2024 End: 08-16-2024 Patient encounter procedure [facility] [place] Work Phone: Start: 08-09-2024 End: 08-09-2024 ambulatory MD Jignesh Gonsalez Work Phone: [facility] Work Phone: Start: 08-09-2024 End: 08-09-2024 Patient encounter procedure MD Jignesh Gonsalez Work Phone: [facility] [place] Work Phone: Start: 08-08-2024 ambulatory [facility] Start: 07-26-2024 End: 07-26-2024 ambulatory [facility] Start: 07-18-2024 End: 07-18-2024 Timo Gonsalez MD [facility] Comment on above: Seizure disorder (CM S/HCC) Start: 06-13-2024 End: 06-13-2024 ambulatory IMELDA THOMPSON Not Available Start: 05-21-2024 End: 05-21-2024 ambulatory JIGNESH GONSALEZ Not Available Start: 05-16-2024 End: 05-16-2024 ambulatory IMELDA THOMPSON Not Available Start: 05-15-2024 End: 05-15-2024 ambulatory MD Jignesh Gonsalez Work Phone: [facility] Work Phone: Start: 05-15-2024 End: 05-15-2024 Patient encounter procedure MD Jignesh Gonsalez Work Phone: [facility] [place] Work Phone: Start: 04-23-2024 End: 04-23-2024 ambulatory [facility] Work Phone: Start: 04-23-2024 End: 04-23-2024 Patient encounter procedure [facility] [place] Work Phone: Start: 04-17-2024 End: 04-17-2024 ambulatory CORNELIO COTTER Not Available Start: 03-07-2024 End: 03-07-2024 ambulatory JIGNESH GONSALEZ Not Available Start: 02-21-2024 End: 02-21-2024 ambulatory JIGNESH GONSALEZ Not Available Start: 01-11-2024 End: 01-11-2024 ambulatory SHAIKH TIESHA Not Available Start: 01-05-2024 End: 01-05-2024 ambulatory [facility] Start: 01-05-2024 End: 01-05-2024 ambulatory [facility] Start: 12-30-2023 ambulatory Chris CAMARILLO Facili ty:[facility] Start: 12-21-2023 Telephone encounter Epifanio dennison MD Work Phone: [facility] Start: 12-20-2023 ambulatory [facility] Start: 12-19-2023 End: 12-19-2023 ambulatory [facility] Start: 12-15-2023 End: 12-15-2023 ambulatory JIGNESH GONSALEZ Not Available Start: 12-07-2023 End: 12-07-2023 ambulatory JIGNESH GONSALEZ Not Available Start: 07-18-2023 End: 07-19-2023 ambulatory JIGNESH GONSALEZ Facility:[facility] Start: 07-18-2023 End: 07-18-2023 Patient encounter procedure Chris CAMARILLO [facility] Start: 07-05-2023 Office outpatient ne w 30 minutes Luiz Riggs [facility] Start: 07-05-2023 End: 07-05-2023 ambulatory MD Jignesh Gonsalez Work Phone: [facility] Work Phone: Start: 07-05-2023 End: 07-05-2023 Patient encounter procedure MD Jignesh Gonsalez Work Phone: [facility] Work Phone: Start: 01-07-2023 End: 01-08-[address] JIGNESH GONSALEZ Facility:[facility] Start: 12-24-2022 End: 12-24-[address] JIGNESH GONSALEZ Facility:[facility] Start: 11-04-2022 End: 11-04-[address] JIGNESH GONSALEZ Facility:[facility] Start: 09-29-2022 End: 09-30-[address] JIGNESH GONSALEZ Facility:[facility] Start: 08-27-[address] JOSE MCCLOUD Fac ility:[facility] Start: 08-23-2022 End: 08-23-[address] PORTER SCOTT . Facility: Start: 06-12-2022 End: 06-12-[address] JOSE MCCLOUD Facility: Start: 04-06-2022 End: 04-06-2022 ambulatory Neelam Morris Other [facility] [employer] Other Start: 04-06-2022 Office outpatient vi sit 15 minutes Neelam Morris [facility] [place] Start: 12-28-2021 End: 12-28-2021 ambulatory Alex Bonilla Other [facility] [employer] Other Start: 12-28-2021 Office outpatient ne w 30 minutes Alex Bonilla [facility] Start: 11-20-2020 End: 11-20-2020 Emergency department patient visit KARINA JAY Facility:[facility] Procedures Date Procedure Procedure Detail Performing Clinician Start: 11-27-2024 Ct maxillofacial w/o contrast material Jignesh Gonsalez MD Work Phone: Start: 11-27-2024 CT SCAN : SINUSES WI THOUT CONTRAST Jignesh Gonsalez MD Work Phone: Start: 09-07-2024 X-ray of right knee, four views MD Jignesh Gonsalez Work Phone: Start: 05-15-2024 Plain X-ray of left elbow MD Jignesh Gonsalez Work Phone: Start: 07-05-2023 X-ray of lumbar spin e, six views including bending views MD Jignesh Gonsalez Work Phone: Start: 09-29-[address] JOSE MCCLOUD Comment on above: Performed By: #### P [facility] #### [facility] [address] [place] [address] Dr. Jeimy Tenorio Extraction of cataract Patri luis antonio CAMARILLO Procedure on foot Chris MERINO Plan of Treatment Date Care Activity Detail Author Start: 11-22-2025 Medicare Annual Well ness (AWV) Medicare Annual Wellness (AWV) [facility] Start: 02-20-2025 End: 02-20-2025 Patient encounter procedure 02/20/2025 1:30 PM EDT Office Visit [facility] [address] [place] [address] Jignesh Gonsalez MD [address] [place] [address] [facility] Start: 11-26-2024 End: 11-26-2024 Patient encounter procedure 11/26/2024 2:00 PM EST Office Visit [facility] [address] [place] [phone] Jose M Rea DO [address] [place] [id number] [facility] Start: 11-22-2024 End: 11-22-2024 Patient encounter procedure [facility] Comment on above: Arrived Start: 11-22-2024 End: 11-22-2025 Basic metabolic 1998 panel - Serum or Plasma Basic metabolic panel Lab Routine Encounter for long-term current use of medication Expected: 11/22/2024 (Approximate), Expires: 11/22/2025 [facility] Work Phone: Comment on above: Expected: 11/22/2024 (Approximate), Expires: 11/22/2025 Start: 11-22-2024 End: 11-22-2025 CBC W Auto Differential panel - Blood CBC and differential Lab Routine Encounter for long-term current use of medication Expected: 11/22/2024 (Approximate), Expires: 11/22/2025 [facility] Comment on above: Expected: 11/22/2024 (Approximate), Expires: 11/22/2025 Start: 11-22-2024 End: 11-22-2025 Hepatic function 2000 panel - Serum or Plasma Hepatic function panel Lab Routine Encounter for long-term current use of medication Expected: 11/22/2024 (Approximate), Expires: 11/22/2025 [facility] Comment on above: Expected: 11/22/2024 (Approximate), Expires: 11/22/2025 Start: 11-22-2024 End: 11-22-2025 Lipid 1996 panel - Serum or Plasma Lipid panel Lab Routine Dyslipidemia ([facility]) Expected: 11/22/2024 (Approximate), Expires: 11/22/2025 [facility] Comment on above: Expected: 11/22/2024 (Approximate), Expires: 11/22/2025 Start: 11-22-2024 End: 11-22-2025 Prostate specific Ag [Mass/volume] in Serum or Plasma PSA Lab Routine Screening PSA (prostate specific antigen) Expected: 11/22/2024 (Approximate), Expires: 11/22/2025 [facility] Comment on above: Expected: 11/22/2024 (Approximate), Expires: 11/22/2025 Start: 11-22-2024 End: 11-22-2025 Thyrotropin [Units/volume] in Serum or Plasma TSH Lab Routine Class 3 severe obesity due to excess calories with serious comorbidity and body mass index (BMI) of 40.0 to 44.9 in adult ([facility]) Expected: 11/22/2024 (Approximate), Expires: 11/22/2025 [facility] Comment on above: Expected: 11/22/2024 (Approximate), Expires: 11/22/2025 Start: 10-25-2024 End: 10-25-2024 Patient encounter procedure [facility] Comment on above: Arrived Start: 10-25-2024 End: 10-25-2025 CT Maxillofacial region WO and W contrast IV CT SINUS WO IV CONTRAST Imaging Routine Chronic rhinosinusitis Expected: 10/25/2024, Expires: 10/25/2025 [facility] Work Phone: Comment on above: Expected: 10/25/2024 , Expires: 10/25/2025 Start: 09-27-2024 End: 09-27-2024 Patient encounter procedure 09/27/2024 3:30 PM EST Office Visit [facility] [address] [place] [address] Jignesh Gonsalez MD [address] [place] [address] [facility] Start: 07-22-2024 Influenza vaccination Influenza Vacc ine (#1) [facility] Start: 12-30-2023 COVID-19 Vaccine ( season) COVID-19 Vaccine ( season) [facility] Start: 08-16-2023 Adult BMI Screening Adult BMI Screen ing [facility] Start: 08-16-2023 Fall Risk Screening Fall Risk Screen ing [facility] Start: 08-16-2023 Tobacco Screening Tobacco Screening [facility] Start: 08-05-2021 Pneumococcal Vaccine : 65+ Years (2 of 2 - PCV) Pneumococcal Vaccine: 65+ Years (2 of 2 - PCV) [facility] Start: 1974 Administration of varicella zoster vaccine Zoster (Shingles) Vaccine (1 of 2) [facility] Start: 1974 DTaP,Tdap and Td Vaccines (1 - Tdap) DTaP,Tdap and Td Vaccines (1 - Tdap) [facility] Start: 1967 Depression Screening Depression Scre ening [facility] Start: 1955 Medicare Annual Well ness (AWV) Medicare Annual Wellness (AWV) [facility] Start: 1955 Medicare Annual Well ness Visit Medicare Annual Wellness Visit [facility] Start: 1955 Screening for malign ant neoplasm of colon [facility] MR Knee - right WO contrast MR knee right wo IV contrast Imaging Routine Chronic pain of right knee Internal derangement of right knee Ordered: 10/25/2024 [facility] Comment on above: Ordered: 10/25/2024 XR Knee - right 4 Views [facility] Immunizations Immunization Date Immunization Notes Care Provider Fa cility 10-11-2024 influenza virus vacc ine, unspecified formulation Jignesh Gonsalez MD Work Phone: [facility] 11-04-2023 Covid-19, Mrna, Lnp- s, Bivalent, Pf, 30mcg/0.3 ml Epifanio Kaufman MD Work Phone: [facility] 11-04-2023 Influenza, Seasonal, Quadrivalent, Adjuvanted Jignesh Gonsalez MD Work Phone: [facility] 11-04-2023 influenza virus vacc ine, unspecified formulation Jignesh Gonsalez MD Work Phone: [facility] 08-21-2022 influenza virus vacc ine, unspecified formulation Epifanio Kaufman MD Work Phone: [facility] 08-21-2022 Influenza, High-dose Seasonal, Quadrivalent, Preservative Free Jignesh Gonsalez MD Work Phone: [facility] 08-21-2022 SARS-COV-2 (COVID-19 ) Vaccine, Unspecified Epifanio Kaufman MD Work Phone: [facility] 08-06-2021 Influenza Vaccine, Quadrivalent, Adjuvanted Epifanio Kaufman MD Work Phone: [facility] 02-25-2021 COVID-19, mRNA, LNP- S, PF, 100mcg/0.5mL Dose Epifanio Kaufman MD Work Phone: [facility] 02-12-2021 COVID-19, mRNA, LNP- S, PF, 30mcg/0.3mL Dose Epifanio Kaufman MD Work Phone: [facility] 08-05-2020 influenza, injectabl e, quadrivalent, preservative free Epifanio Kaufman MD Work Phone: [facility] 08-05-2020 pneumococcal polysaccharide vaccine, 23 valent Epifanio Kaufman MD Work Phone: [facility] 09-03-2019 influenza, seasonal, injectable Epifanio Kaufman MD Work Phone: [facility] 08-24-2019 influenza, injectabl e, quadrivalent, preservative free Epifanio Kaufman MD Work Phone: [facility] Payers Date Payer Category Payer Self-pay [id number] 2023 Medicaid [id number] 2023 Medicaid [id number] 2022 Medicare [id number] 2021 Medicare [id number] 2021 Unknown [id number] 2021 Medicare [id number] 2020 Medicare [id number] 2019 Unknown [id number] 1959 Medicare [id number] 2. [id number] 1955 Unknown [id number] 2.16.8 40.1.763452.3.579.2.647 1955 Unknown [id number] 2.16.84 0.1.241751.3.579.2.593 1955 Unknown [id number] 2.16.84 0.1.850963.3.579.2.593 1955 Unknown [id number] 2.16.84 0.1.665333.3.579.2.593 1955 Unknown [id number] 2.16.84 0.1.104876.3.579.2.593 1955 Unknown [id number] 2.16.84 0.1.965500.3.579.2.593 1955 Unknown [id number] 2.16.84 0.1.625625.3.579.2.593 1955 Unknown [id number] 2.16.84 0.1.178292.3.579.2.593 1955 Unknown [id number] 2.16.8 40.1.907483.3.579.2.1286 1955 Unknown [id number] 2.16.8 40.1.582539.3.579.2.727 1955 Unknown [id number] 2.16.8 40.1.961039.3.579.2.727 1955 Unknown [id number] 2.16.84 0.1.135752.3.579.2.1259 1955 Unknown [id number] 2.16.84 0.1.820987.3.579.2.1259 1955 Unknown [id number] 2.16.84 0.1.368880.3.579.2.1259 1955 Unknown [id number] 2.16.84 0.1.940563.3.579.2.1259 1955 Unknown [id number] 2.16.84 0.1.414345.3.579.2.1259 1955 Unknown [id number] 2.16.84 0.1.411083.3.579.2.1259 1955 Unknown [id number] 2.16.84 0.1.982288.3.579.2.1259 1955 Unknown [id number] 2.16.84 0.1.256060.3.579.2.1259 1955 Unknown [id number] 2.16.84 0.1.093090.3.579.2.1259 1955 Unknown [id number] 2.16.84 0.1.949979.3.579.2.1259 1955 Unknown [id number] 2.16.84 0.1.856890.3.579.2.1259 1955 Unknown [id number] 2.16.84 0.1.395457.3.579.2.1259 1955 Unknown [id number] 2.16.84 0.1.504501.3.579.2.1259 1955 Unknown [id number] 2.16.84 0.1.658662.3.579.2.1259 Medicare [id number] Unknown [id number] 2.16.8 40.1.244147.3.579.2.531 Unknown [id number] 2.16.8 40.1.515352.3.579.2.531 Unknown [id number] 2.16.8 40.1.157626.3.579.2.531 Social History Date Type Detail Facility Start: 08-16-2022 End: 12-14-2023 Sex Assigned At [facility] Start: 1955 Sex Assigned At Male [facility] Tobacco smoking status No Smoking Status Entered [facility] [employer] Start: 01-29-2020 End: 01-11-2024 Tobacco smoking status [facility] Ex-smoker [facility] End: 04-18-1997 History of tobacco use Current smoker [facility] End: 04-18-1997 History of tobacco use Cigarette Smoker [facility] Start: 01-29-2020 End: 12-14-2023 Cigarettes smoked current (pack per day) - Reported 3 [facility] Start: 01-29-2020 End: 01-11-2024 Tobacco use and exposure Smokeless tobacco non-user [facility] Start: 08-16-2022 Alcohol intake Ex-drinker (finding) [facility] Childcare Unknown [facility] Start: 1955 Sex Assigned At Not on file [facility] Start: 04-23-2024 Tobacco smoking status [facility] Never smoked tobacco (finding) [facility] Start: 05-21-2024 End: 11-22-2024 Alcoholic beverage intake Lifetime non-drinker (finding) [facility] [...] smoker [facility] Clinical Notes 11-21-2020 to 11-27-2024 Jose M Rea DO - 11/27/2024 10:15 AM Vitor Gonsalez MD - 11/22/2024 4:23 PM Vitor Gonsalez MD - 11/22/2024 4:23 PM Vitor Gosnalez MD - 11/22/2024 4:23 PM EST Note Date & Type Note Facility 11-27-2024 History of Presen t illness Narrative General Surgery H&P Nazario Cortes 1955 Nazario Cortes is a 69 y.o. male presents for screening colonoscopy. Denies abdominal pain. Denies family hx of colon cancer. Denies melena or hematochezia. Denies changes in bowel habits. Denies changes in caliber of stools. Denies hx of unplanned weight loss. Denies fevers, chills, or sweats. Denies nausea or vomiting. Last colonoscopy was 2018. ASA 81mg SUBJECTIVE: MEDICATIONS: ALLERGIES Current Outpatient Medications Medication Instructions aspirin 81 MG EC tablet 1 tablet, Daily atorvastatin (LIPITOR) 10 mg, Oral, Nightly citalopram (CELEXA) 40 mg, Oral, Every morning fluticasone (Flonase) 50 MCG/ACT nasal spray 2 sprays, Each Nostril, Daily, Shake gently. Before first use, prime pump. After use, clean tip and replace cap. furosemide (LASIX) 40 mg, Oral, Daily PRN meclizine (ANTIVERT) 25 mg, Oral, 4 times daily methocarbamol (Robaxin) 750 MG tablet TAKE 1 TABLET BY MOUTH THREE TIMES DAILY NEEDED MUSCLE SPASM nitroglycerin (NITROSTAT) 0.3 mg, Sublingual, Every 5 min PRN PHENobarbital (LUMINAL) 64.8 mg, Oral, 3 times daily phenytoin ER (DILANTIN) 200 mg, Oral, 3 times daily potassium chloride CR (K-Tab) 20 MEQ ER tablet 20 mEq, Oral, Daily PRN Allergies Allergen Reactions Oxycodone Angioedema and Unknown Gabapentin Unknown PAST MEDICAL HISTORY: SOCIAL HISTORY SURGICAL HISTORY: Past Medical History: Diagnosis Date Cataracts, bilateral 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CMS/HCC) Degenerative lumbar spinal stenosis DNS (deviated nasal septum) Dyslipidemia (CMS/HCC) 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, recurrent episode, mild (HCC) (CMS/HCC) Malignant neoplasm of urinary bladder, unspecified site (CMS/HCC) Right foot pain Seizures (CMS/HCC) Syncope, unspecified syncope type Social History Tobacco Use Smoking status: Former Current packs/day: 0.00 Types: Cigarettes Quit date: 04/18/1997 Years since quittin.6 Passive exposure: Never Smokeless tobacco: Never Vaping Use Vaping status: Never Used Substance Use Topics Alcohol use: Never Drug use: Never Past Surgical History: Procedure Laterality Date BIOPSY Right 1998 chest CATARACT EXTRACTION Bilateral CHOLECYSTECTOMY CT ANGIO HEAD 11/20/[address] ANGIOGRAM NECK 11/20/2020 CT ANGIOGRAM NECK FOOT SURGERY Right 2015 x2 Achilles tendon SHOULDER SURGERY Left 1985 TUMOR EXCISION Family History Problem Relation Name Age of Onset Cancer Mother Heart disease Mother Diabetes Father Diabetes Sister Cancer Sister Allergies Allergen Reactions Oxycodone Angioedema and Unknown Gabapentin Unknown Past Surgical History: Procedure Laterality Date BIOPSY Right 1998 chest CATARACT EXTRACTION Bilateral CHOLECYSTECTOMY CT ANGIO HEAD 11/20/[address] ANGIOGRAM NECK 11/20/2020 CT ANGIOGRAM NECK FOOT SURGERY Right 2015 x2 Achilles tendon SHOULDER SURGERY Left 1985 TUMOR EXCISION Tobacco Use: Medium Risk (11/22/2024) Patient History Smoking Tobacco Use: Former Smokeless Tobacco Use: Never Passive Exposure: Never Alcohol Use: Not At Risk (12/14/2023) AUDIT-C Frequency of Alcohol Consumption: Never Average Number of Drinks: Patient does not drink Frequency of Binge Drinking: Never Depression: Not at risk (11/22/2024) PHQ-2 PHQ-2 Score: 2 Physical Activity: Insufficiently Active (12/14/2023) Exercise Vital Sign Days of Exercise per Week: 2 days Minutes of Exercise per Session: 20 min REVIEW OF SYMPTOMS: Review of Systems 10 systems were reviewed. Positives noted above. Remainder are negative per CMS guidelines. OBJECTIVE: Visit Vitals Smoking Status Former Phone visit ASSESSMENT AND PLAN: Assessment/Plan Diagnoses and all orders for this visit: Screening for malignant neoplasm of colon Plan: Patient is average risk for colon cancer. Colonoscopy can be scheduled electively. Patient informed of the risks of procedure which include but not limited to bleeding, perforation, and risks of anesthesia. Patient understood risks and signed informed consent for the procedure under monitored anesthesia care. Handout for bowel prep provided in clinic. Patient was informed of the need for a ride home from the hospital and the need for someone to be with them for the following 24 hrs post procedure. Thank you, Ashley Rea DO documented in this encounter [facility] 11-22-2024 History of Presen t illness Narrative Associated Problem(s): Malignant neoplasm of urinary bladder (CMS/HCC) Follow up with urology. Associated Problem(s): Seizure disorder (CMS/HCC) Continue medication. Associated Problem(s): Major depressive disorder, recurrent episode, mild (HCC) (CMS/HCC) Symptoms stable and continue celexa. Associated Problem(s): Class 3 severe obesity due to excess calories with serious comorbidity and body mass index (BMI) of 40.0 to 44.9 in adult (CMS/HCC) Weight loss indicated. Associated Problem(s): Medicare annual wellness visit, subsequent Due for labs. Scheduled for consult with surgeon for colonoscopy. Discussed proper diet and regular aerobic exercise. Need aerobic exercise 5-6 days a week for 30 minutes at a time. Smaller portions and limit total calories. Tetanus every 10 years. Advised not to smoke. Images from the original note were not included. Subjective Patient ID: Nathan Cortes is a 69 y.o. male who presents for Medicare Annual Wellness Visit Subsequent (wellness). Presents for medicare annual wellness visit. Patient stable today. Weight up 16 pounds in the past year. Not as active due to pain and instability. Tries to watch diet and eat healthy. Increased fruits and vegetables. Smaller portions and limits snacking. Tries to limit total daily calories. Due for labs. Review of Systems Constitutional: Negative for fatigue. [...] There is no guarding or rebound. Musculoskeletal: General: Normal range of motion. Left lower leg: No edema. Neurological: General: No focal deficit present. Mental Status: He is alert. Cranial Nerves: No cranial nerve deficit. Deep Tendon Reflexes: Reflexes normal. Assessment/Plan Problem List Items Addressed This Visit Dyslipidemia (CMS/HCC) Relevant Orders Lipid panel Major depressive disorder, recurrent episode, mild (HCC) (CMS/HCC) Symptoms stable and continue celexa. Malignant neoplasm of urinary bladder (CMS/HCC) Follow up with urology. Seizure disorder (CMS/HCC) Continue medication. Class 3 severe obesity due to excess calories with serious comorbidity and body mass index (BMI) of 40.0 to 44.9 in adult ([facility]) Weight loss indicated. Relevant Orders TSH Encounter for long-term current use of medication Relevant Orders Basic metabolic panel CBC and differential Hepatic function panel Screening PSA (prostate specific antigen) Relevant Orders PSA Medicare annual wellness visit, subsequent - Primary Due for labs. Scheduled for consult with surgeon for colonoscopy. Discussed proper diet and regular aerobic exercise. Need aerobic exercise 5-6 days a week for 30 minutes at a time. Smaller portions and limit total calories. Tetanus every 10 years. Advised not to smoke. documented in this encounter [facility] 11-06-2024 Telephone encounter Note Spoke to Janet, Chart was audited from 05/20/23 and needed my signature on the document.. added and faxed to [employer]. [facility] Work Phone: 11-06-2024 Miscellaneous Notes Spoke to Janet, Chart was audited from 05/20/23 and needed my signature on the document.. added and faxed to [employer]. Her name is Janet that called chantel De Anda. Neetu from [facility] called and left vm that she needs a return call. She stated she has called a few times and has not received a call back regarding this patient. I tried to call back and it just kept ringing. Please call her back at [phone]. documented in this encounter [facility] 11-06-2024 Telephone encounter Note Her name is Janet that called [facility] De [facility]. [facility] 11-06-2024 Telephone encounter Note Neetu from [facility] called and left vm that she needs a return call. She stated she has called a few times and has not received a call back regarding this patient. I tried to call back and it just kept ringing. Please call her back at [phone]. [facility] 10-30-2024 History of Presen t illness Narrative Pt picked up supplies documented in this encounter [facility] 10-25-2024 History of Presen t illness Narrative [...] spasms. Continue PT exercises. Relevant Medications HYDROcodone-acetaminophen ([place]) 5-325 MG tablet Chronic rhinosinusitis Continued congestion [...] to General Surgery documented in this encounter [facility] 08-08-2024 Note SUBJECTIVE: Chief complaint: Back pain. [...] about 6 or 7 years ago, in [facility] and had injections, which he states he has made his symptoms worse. Not interested in pursuing additional injections. Has had patient care representative many years ago for previous symptoms of [...] Past Medical History: Diagnosis Date Bladder cancer ([facility]) around 1997 Cholelithiasis Colon polyp Depression Dyslipidemia Hearing loss Left foot drop Peripheral neuropathy Seizure disorder ([facility]) TIA (transient ischemic attack) Past [...] needed each day., Disp: , Rfl: HYDROcodone-acetaminophen ([place]) 5-325 mg tablet, take 1 tablet by mouth four times a day if needed for severe pain for up to 7 days, Disp: , Rfl: meclizine (Antivert) 25 mg tablet, take 1 tablet by mouth four times a day if needed for dizziness, (more content not included)... [facility] 01-05-2024 Note SUBJECTIVE: Chief complaint: Back pain. [...] about 6 or 7 years ago, in [facility] and had injections. He states he has made his symptoms worse. Has had patient care representative many years ago for previous symptoms of [...] Past Medical History: Diagnosis Date Bladder cancer ([facility]) around 1997 Cholelithiasis Colon polyp Depression Dyslipidemia Hearing loss Left foot drop Peripheral neuropathy Seizure disorder (CMS/HCC) TIA (transient ischemic attack) Past Surgical History: [...] by mouth in (more content not included)... [facility] 12-21-2023 Miscellaneous Notes Received faxed referral for patient to be seen for Lumbar. Called and spoke to patient, stated he has an appointment set up already at [facility] office. documented in this encounter [facility] 12-21-2023 Telephone encounter Note Received faxed referral for patient to be seen for Lumbar. Called and spoke to patient, stated he has an appointment set up already at [facility] office. 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 Other 06-09-2023 Hospital Discharge instructions Follow Up Care 04/29/2023 15:31:28 With:RABIA GAN, Chris Brizuela, URL Address: [facility] [address] , [place] [address]- [phone] When: Unknown [facility] 11-10-2022 NotePROCEDURE: XR FOOT RT MIN [...] Electronically authenticated by: KELL BLANDON Date: 2022-09-30 08:07[facility]10-03-2022 NotePROCEDURE: XR KNEE LT 4V or [...] Electronically authenticated by: TRINIDAD BEAVER Date: 2022-08-23 14:[address] [place], [place] [id number] NotePROCEDURE: XR KNEE LT 4V or >, [...] Electronically authenticated by: TRINIDAD BEAVER Date: 2022-08-23 14:[address] [place], [place] [id number] NotePROCEDURE: XR KNEE LT 4V or >, [...] Electronically authenticated by: TRINIDAD BEAVER Date: 2022-08-23 14:[address] [place], [place] [id number] Evaluation note* Encounter Date Diagnosis Assessment Notes Treatment Notes Treatment Clinical Notes March, Bilateral impacted cerumen (ICD-10 - H61.23) Avoid using Q-tips or earplugs. Keep your ears clean and dry. Follow-up with your family physician for any further concerns. [employer] Other 02-07-2022 Evaluation note* Encounter Date Diagnosis [...] contact us for further management as needed. [employer] Other 01-01-2021 NoteMR#: [id number] E [facility] Pt. Name: Nazario Cortes Admitted: [...] of coronary artery disease, followed by [facility] Cardiology Clinic that presents to the [facility] Emergency Department with complaints of chest [...] to follow up with his PCP and crt. Total time of discharge was 45 minutes. Electronically Signed by: Trinidad Hamilton MD 11/21/2020 08:00 A Trinidad Hamilton MD .. Date Dict: 11/20/2020/06:21 P/Loida Dion, [employer] Date Trans: 11/21/2020 12:04 A/mmo [id number] cc: Jose Mccloud M.D. [facility] [address] [place], [place] [address] [address] [place] [address] Future Appointments Appointment Date:08/19/2023 10:30:00 AM Scheduled Provider:Chris CAMARILLO MD Location:[facility] Appointment Type:URO New Patient [facility] evaluation noteNo assessment information available [facility] Work Phone: Evaluation note* Diagnosis Onset Date Resolution Status Impacted cerumen of both ears acute [facility] Work Phone: Evaluation note* Diagnosis Onset Date Resolution Status Impacted cerumen of both ears acute Left elbow pain acute [facility] Work Phone: Evaluation note* Diagnosis Onset Date Resolution Status Left elbow pain acute Impacted cerumen of both ears acute [facility] Work Phone: Evaluation note* Diagnosis Onset Date Resolution Status Impacted cerumen of both ears acute Allergic rhinitis noneactive [facility] Work Phone: Evaluation note* Diagnosis Major depressive [...] Coronary atherosclerosis of unspecified type of vessel, [place] or graft Chest pain due to CAD [...] of intractable epilepsy documented in this encounter [facility]* Diagnosis Major depressive disorder, recurrent [...] Coronary atherosclerosis of unspecified type of vessel, [place] or graft Chest pain due to CAD [...] of lumbar region documented in this encounter [facility]* Diagnosis Major depressive disorder, [...] Coronary atherosclerosis of unspecified type of vessel, [place] or graft Chest pain due to CAD [...] recurrent episode, mild documented in this encounter [facility]* Diagnosis Major depressive disorder, recurrent [...] Coronary atherosclerosis of unspecified type of vessel, [place] or graft Chest pain due to CAD [...] malignant neoplasms, colon documented in this encounter [facility]* Diagnosis Major depressive disorder, [...] Coronary atherosclerosis of unspecified type of vessel, [place] or graft Chest pain due to CAD [...] loss, bilateral- Primary [facility] Diagnosis Seizure disorder (CMS/HCC) Unspecified [...] Coronary atherosclerosis of unspecified type of vessel, [place] or graft Chest pain due to CAD [...] screening Special screening for malignant neoplasms, colon Degenerative lumbar spinal stenosis Spinal stenosis of lumbar region documented in this encounter [facility]* Diagnosis Major depressive disorder, [...] Coronary atherosclerosis of unspecified type of vessel, [place] or graft Chest pain due to CAD [...] screening Special screening for malignant neoplasms, colon Medicare annual wellness visit, subsequent- Primary Dyslipidemia (CMS/HCC) Other and unspecified hyperlipidemia Encounter for long-term current use of medication Screening PSA (prostate specific antigen) Special screening for malignant neoplasm of prostate Class 3 severe obesity due to excess calories with serious comorbidity and body mass index (BMI) of 40.0 to 44.9 in adult (CMS/HCC) Major depressive disorder, recurrent episode, mild (HCC) (CMS/HCC) Major depressive disorder, recurrent episode, mild Seizure disorder (CMS/HCC) Unspecified epilepsy without mention of intractable epilepsy Malignant neoplasm of urinary bladder, unspecified site (CMS/HCC) documented in this encounter [facility] HealthcareEvaluation note* Diagnosis Major depressive disorder, [...] Coronary atherosclerosis of unspecified type of vessel, [place] or graft Chest pain due to CAD [...] screening Special screening for malignant neoplasms, colon Medicare annual wellness visit, subsequent- Primary Dyslipidemia (CMS/HCC) Other and unspecified hyperlipidemia Encounter for long-term current use of medication Screening PSA (prostate specific antigen) Special screening for malignant neoplasm of prostate Class 3 severe obesity due to excess calories with serious comorbidity and body mass index (BMI) of 40.0 to 44.9 in adult (CMS/HCC) Major depressive disorder, recurrent episode, mild (HCC) (CMS/HCC) Major depressive disorder, recurrent episode, mild Seizure disorder (CMS/HCC) Unspecified epilepsy without mention of intractable epilepsy Malignant neoplasm of urinary bladder, unspecified site (CMS/HCC) Screening for malignant neoplasm of colon- Primary documented in this encounter [facility]* [...]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
[2024-12-11 07:52] VITALS: BP 133/85; PULSE 86; TEMP 36.1; O2SAT 93; BMI 39.0
[2024-12-11] MEDS: 0.9 % SODIUM CHLORIDE 500 ML 50 ML IV (08:03)
--- NOTE | 2024-12-11 08:17 | W.PM.PROCNOT ---
Date of procedure: 12/11/24 Pre-op diagnosis: screening colonoscopy Post-op diagnosis: other (sigmoid diverticulosis ) Procedure: Previous colonoscopy: 2019 procedure: screening colonoscopy The patient was given IV conscious sedation.? The patient's SPO2 remained above 90% throughout the procedure. The colonoscope was inserted per rectum and advanced under direct vision to the cecum without difficulty.? The prep was good.? Findings: Terminal ileum os: normal Cecum/Ascending colon: normal Transverse colon: normal Descending/Sigmoid colon: normal aside for mild sigmoid diverticulosis Rectum/Anus: examined in normal and retroflexed positions and was normal Withdrawal Time was (minutes): 10 The colon was decompressed and the scope was removed.? The patient tolerated the procedure well. Recommendations/Plan: 1.? Lifestyle and dietary modifications as discussed 2.? F/U in 5 years due to increased personal/family risk 3.? Discussed with the family Anesthesia: MAC Surgeon: Esteban Sprague Estimated blood loss (mL): 0 Pathology: none sent Condition: stable Disposition: PACU
[2024-12-11 08:48] VITALS: BP 106/75; PULSE 73; TEMP 36.8; O2SAT 93
[2024-12-11 09:03] VITALS: BP 105/73; PULSE 76; O2SAT 93
[2024-12-11 09:18] VITALS: BP 128/80; PULSE 80; TEMP 36.8; O2SAT 94
== END 2024-12-11 09:21 | disposition home or self-care (01) ==
PROVIDERS: PCP Family Medicine; Visit Provider Surgery
PROC: (CPT G0121; principal; 2024-12-11 08:25)
DX: Z12.11 Encounter for screening for malignant neoplasm of colon (principal); K57.30 Diverticulosis of large intestine without perforation or abscess without bleeding; Z79.82 Long term (current) use of aspirin; Z87.891 Personal history of nicotine dependence; Z90.49 Acquired absence of other specified parts of digestive tract; I25.10 Atherosclerotic heart disease of native coronary artery without angina pectoris; Z98.1 Arthrodesis status; G47.33 Obstructive sleep apnea (adult) (pediatric); E78.5 Hyperlipidemia, unspecified; R56.9 Unspecified convulsions; Z86.73 Personal history of transient ischemic attack (TIA), and cerebral infarction without residual deficits; Z85.51 Personal history of malignant neoplasm of bladder
CPT/HCPCS: G0121; J2704

== ENCOUNTER 2025-01-09 19:34 | Observation (INO) | payer MEDICARE, MEDICAID, SELFPAY ==
[2025-01-09] VITALS (30 sets, daily range): BP systolic 136–153; BP diastolic 66–80; PULSE 55–90; TEMP 36.7–36.9; O2SAT 84–95; BMI 39.1; BMI 41.0
--- NOTE | 2025-01-09 19:39 | ECG_ITS ---
[facility] Test Date: 2025-01-09 Pat Name: GÓMEZ CORTES Department: Room: - Gender: Male [employer]: : 1955 Requested By: ADALID GONSALEZ Order Number: [id number] Reading MD: NOE ESCALANTE Measurements Intervals [place] Rate: 76 P: 49 DC: 176 QRS: 5 QRSD: 82 T: 45 QT: 376 QTc: 407 Interpretive Statements 1100 Sinus rhythm 9110 normal ECG Compared to ECG 11/11/2024 19:22:12 Sinus arrhythmia no longer present Electronically Signed On 01-10-2025 6:47:34 EST by NOE ESCALANTE
--- OUTSIDE RECORDS SUMMARY | 2025-01-09 19:41 | XMS_ITS | CCD ---
Author Organization [facility] Care Team Providers Care Corporate Travel Agent Name Role Phone KARINA JAY Attending Unavailable SELF, REFERRED Referring Unavailable JOSE MCCLOUD Primary Care Unavailable KYM JOHN Admitting Unavailable [...] NADJEM, DR JIGNESH Means Primary Care Unavailable LATTA, DR TIRNIDAD Cummins Consulting Unavailable LUZMARIA ., YONAS Consulting [...] Provider MD Jignesh Gonsalez Primary Care Provider [phone] JIGNESH GONSALEZ Primary Care Physician Chris CAMARILLO Attending Unavailable JIGNESH GONSALEZ Referring Unavailable Chris CAMARILLO Attending Unavailable MD Jignesh Gonsalez Primary Care Provider RIDGE Garcia Attending Provider OVITT, CORNELIO Referring Unavailable OVITT, CORNELIO Referring Unavailable NARA, ROGERIO Referring Unavailable OVITT, CORNELIO Attending Unavailable DARI HODGESISON Attending Unavailable MD Jignesh Gonsalez Primary Care Provider RIDGE Garcia Attending Provider Jignesh Gonsalez MD Primary Care Provider [phone] Jignesh Gonsalez Primary Care Unavailable Joslyn Garcia Attending Unavailable Joslyn Garcia Admitting Unavailable Jignesh Gonsalez Primary Care Unavailable Joslyn Garcia Attending Unavailable Joslyn Garcia Admitting Unavailable Yancy Lawson Admitting Unavailable Wallace, Jignesh Primary Care Unavailable Yancy Lawson Attending Unavailable AMRIK PÉREZ Attending Unavailable JIGNESH GONSALEZ Referring Unavailable SHAIKH MOTLEY Attending Unavailable JIGNESH GONSALEZ Attending Unavailable CORNELIO COTTER Attending Unavailable IMELDA THOMPSON Attending Unavailable WALLACE, JIGNESH Attending Unavailable IMELDA THOMPSON Attending Unavailable IMELDA THOMPSON Referring Unavailable JIGNESH GONSALEZ Attending Unavailable CHARI VELA Attending Unavailable NADEREJIGNESH Brizuela Attending Unavailable JOSE M REA Attending Unavailable JIGNESH GONSALEZ Referring Unavailable Jose Mccloud DO Primary Care Provider [phone] Allergies Allergy Classification Reported Allergen(s) Allergy Type Date of Onset Reaction(s) Facility Anti-Epileptic Agents (2 sources) gabapentin Drug Allergy 4 stomach upset, IV ONLY-Dizzy [facility] Opioid Agonists (1 source) oxyCODONE Drug Allergy 4 Unknown Reaction [facility] (11 sources) gabapentin; Translations: [GABAPENTIN] Drug Allergy 0 stomach upset [facility] Repository (2 sources) oxyCODONE Drug Allergy 0 [facility] (3 sources) Phenytoin; Translations: [Dilantin] Drug Allergy 0 [facility] Rep[facility] (20 sources) gabapentin; Translations: [gabapentin] Drug Allergy 0 Unknown (qualifier value), Unknown [facility] (20 sources) oxyCODONE; Translations: [oxycodone] Drug Allergy 0 Difficulty breathing (finding), Angioedema, Unknown [facility] (13 sources) Phenytoin; Translations: [phenytoin] Drug Allergy 6 Dizziness (finding), Unknown, Dizziness [facility] (1 source) Phenytoin; Translations: [PHENYTOIN SODIUM EXTENDED] Drug Allergy 6 [facility] Repository (1 source) ALLERGIES NOT ON FILE; Translations: [ALLERGIES NOT ON FILE] Propensity to adverse reactions (disorder) [facility] Repository (1 source) gabapentin Drug Allergy 4 [facility] Repository (1 source) oxyCODONE Drug Allergy 4 [facility] (1 source) Phenytoin Drug Allergy 4 [facility] Medications Current Medications Medication Drug Class(es) Dates Sig (Normalized) Sig (Original) acetaminophen 325 mg / HYDROcodone bitartrate 5 mg oral tablet (20 sources) Opioid Agonist Start: 11-15-2024 End: 11-22-2024 take 1 tablet by mouth four times daily as needed for pain HYDROcodone-acetami nophen ([place]) 5-325 MG tablet Indications: Degenerative lumbar spinal stenosis Take 1 tablet by mouth 4 (four) times a day as needed for severe pain for up to 7 days 28 tablet 11/15/2024 11/22/2024 Active Start: 10-11-2024 End: 11-01-2024 take 1 tablet by mouth four times daily as needed for pain HYDROcodone-acetaminophen ([place]) 5-325 MG tablet Indications: Degenerative lumbar spinal stenosis Take 1 tablet by mouth 4 (four) times a day as needed for severe pain for up to 7 days 28 tablet 10/25/2024 11/01/2024 Active Start: 04-23-2024 take 1 tablet by ambika th four times daily Hydrocodone-Acetaminophen Active 1 TAB P O Four times daily April 23, 2024 12:00am [place] Active take 1 tablet by ambika th [...] 2 mg/ml injectable solution (1 source) vit D9-N0-L3-B5- B6 (B-COMPLEX INJECTION) 093-1-924-2-2 mg/mL solution B-Complex 1 QD 0 Active fluticasone propionate 0.05 mg/actuat metered dose nasal spray (16 sources) Corticosteroid Start: 10-25-2024 take 2 spray(s) nasal route once daily fluticasone (Flonase) 50 MCG/ACT nasal spray Indications: Chronic rhinosinusitis Administer 2 sprays into each nostril Daily Shake gently. Before first use, prime pump. After use, clean tip and replace cap. 16 g 2 10/25/2024 Active furosemide 40 mg oral tablet (20 sources) Loop Diuretic Start: 12-17-2024 take 1 tablet by mouth once daily as needed furosemide (Lasix) 40 MG tablet Indications: Bilateral leg edema TAKE 1 TABLET BY MOUTH DAILY NEEDED 30 tablet 3 12/17/2024 Active Start: 04-23-2024 take 1 tablet by ambika th once daily as needed, then take 1 tablet by mouth once daily as needed furosemide (Lasix) 40 MG tablet Indications: Bilateral leg edema Take 1 tablet (40 mg) by mouth Daily as needed (take 1 tablet by mouth Daily as needed) 30 tablet 3 07/06/2024 Active ibuprofen 200 mg oral tablet (4 sources) Nonsteroidal Anti-inflammatory Drug Start: 09-07-2024 take 400 mg by mouth every six [...] Meloxicam Active methocarbamol 750 mg oral tablet (18 sources) Muscle Relaxant Start: 11-19-2024 take 1 tablet by mouth three times daily as needed for muscle spasms methocarbamol (Robaxin) 750 MG tablet Indications: Chronic pain of right knee TAKE 1 TABLET BY MOUTH THREE TIMES DAILY NEEDED MUSCLE SPASM 42 tablet 11/19/2024 Active Start: 11-09-2024 take 1 tablet by ambika three times daily as needed for muscle spasms methocarbamol (Robaxin) 750 MG tablet Indications: Chronic pain of right knee Take 1 tablet (750 mg) by mouth 3 (three) times a day as needed for muscle spasms 42 tablet 11/09/2024 Active Start: 09-07-2024 take 750 mg by mouth three times daily Methocarbamol Active 750 MG PO Three times daily 10 06September 07, 2024 12:00am Multiple Vitamins-Minerals (men's 50+ multivitamin w/min) tablet (2 sources) take 1 tablet by mouth once daily Multiple Vitamins-Minerals (men's 50+ multivitamin w/min) tablet Take 1 tablet by mouth Daily Active Multivitamin preparation (7 sources) Start: take 1 tablet by mouth once daily Multivitamin Active 1 TAB PO Daily April 23, 2024 12:00am favowuodvvaw-jddtxbad-xj tein (MULTIVITAMIN 50 PLUS) tablet (1 source) multivitamin-min erals-l utein (MULTIVITAMIN 50 PLUS) tablet daily. 0 Active nitroglycerin 0.4 mg sublingual tablet (20 sources) Nitrate Vasodilator Start: Nitroglycerin Active 0.4 MG SUBLINGUAL Q5M August [...] 32 mg oral tablet (20 sources) Start: 09-25-2024 End: 11-28-2024 take 2 tablets by mouth three times daily PHENobarbital (Luminal) 32.4 MG tablet Indications: Seizure disorder (CMS/HCC) TAKE 2 TABLETS BY MOUTH THREE TIMES DAILY 180 tablet 5 11/28/2024 Active Start: 07-18-2024 take 2 tablets by mo [facility] three times daily PHENobarbital (Luminal) 32.4 MG [...] 11-15-2022 take 2 tablets by mo [facility] three times daily PHENobarbitaL (LUMINAL) 32.4 mg tablet Indications: Seizure (CMS-HCC) take 2 tablets by mouth three times a day 180 tablet 0 11/15/2022 Active take 1 tablet by [facility] every twelve hours PHENobarbital 32.4 MG 1 [...] Drug Class(es) Dates Sig (Normalized) Sig (Original) bisacodyl 5 mg delayed release oral tablet (5 sources) Stimulant Laxative Start: 11-27-2024 End: 12-19-2024 take 1 tablet by mouth in the morning bisacodyl (Dulcolax) 5 MG EC tablet Indications: Screening for malignant neoplasm of colon Take 1 tablet (5 mg) by mouth in the morning and 1 tablet (5 mg) before bedtime. Do not crush, chew, or split. Take as detailed on clinic hand out for colonoscopy prep. 4 tablet 11/27/2024 12/19/2024 Discontinued (Therapy completed) Mens Multivitamin (2 sources) Mens Multivitami n [...] sources) Malignant tumor of urinary bladder; Translations: [Cancer in situ of urinary bladder] Onset: 12-16-2017 07-15-2023 Chronic Cancer of bladder [...] disease (20 sources) Atherosclerotic heart disease of [place] coronary artery without angina pectoris; Translations: [Coronary [...] 12-27-2022 Episodic Joint disorders and dislocations; trauma-related (20 sources) Derangement of right knee; Translations: [Unspecified internal derangement of right knee] Onset: 08-16-2022 10-25-2024 Chronic Malignant neoplasm without specification of site (8 sources) Malignant neoplastic disease; 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, unspecified] Onset: 01-19-1998 04-23-2024 Chronic Mood disorders (20 sources) Chronic depression; Translations: [Chronic depression] Onset: 10-26-2023 04-23-2024 Chronic Osteoarthritis (9 sources) Unspecified osteoarthritis, unspecified site; Translations: [Arthritis] Onset: 08-16-2022 04-23-2024 Chronic Other aftercare (1 source) manager terminal (current) use of aspirin; Translations: [RESIDENTIAL CURRENT USE OF ASPIRIN] Onset: 12-27-2022 Episodic Other aftercare (1 source) Other moth exterminator (current) drug therapy; Translations: [OTH SMOKING PIPE COATER CURRENT DRUG THERAPY] Onset: 12-27-2022 Episodic Other and unspecified benign neoplasm (11 sources) History of polyp of colon; Translations: [Personal history of colonic polyps] Onset: 01-28-2020 04-23-2024 Episodic Other bone disease and musculoskeletal deformities [...] nervous system disorders (20 sources) Neuropathy; Translations: [Polyneuropathy, unspecified] Onset: 01-28-2020 04-23-2024 Chronic Other nervous system disorders (2 sources) Other chronic pain; Translations: [Other chronic pain] Onset: 08-08-2024 Chronic Other non-traumatic joint disorders (3 sources) Pain in left hip; Translations: [PAIN IN LEFT HIP] Onset: 12-24-2022 Episodic Other non-traumatic joint disorders (6 sources) Pain in elbow; Translations: [Pain in left elbow] 05-15-2024 Episodic Other non-traumatic joint disorders (20 sources) Pain in right knee; Translations: [Right knee pain] Onset: 09-07-2024 09-07-2024 Episodic Other nutritional; endocrine; and metabolic disorders (1 source) Hypocalcemia; Translations: [HYPOCALCEMIA] Onset: 11-07-2022 Chronic Other nutritional; endocrine; and metabolic disorders (1 source) Obesity, unspecified; Translations: [OBESITY UNSPECIFIED] Onset: 10-04-2022 Chronic Other nutritional; endocrine; and metabolic disorders (20 sources) Obesity; Translations: [Obesity, unspecified] Onset: 01-12-2021 04-23-2024 Chronic Other nutritional; endocrine; and metabolic disorders (11 sources) Severe obesity; Translations: [Class 3 severe obesity due to excess calories with serious comorbidity and body mass index (BMI) of 40.0 to 44.9 in adult ([facility])] Onset: 01-12-2021 11-22-2024 Chronic Other upper respiratory disease (2 sources) Allergic rhinitis, unspecified; Translations: [Allergic rhinitis, cause unspecified] 08-16-2024 Chronic Other upper respiratory disease (20 sources) Deviated nasal septum; Translations: [Deviated nasal septum] Onset: 10-26-2023 10-26-2023 Episodic Other upper respiratory infections (19 sources) Chronic sinusitis, unspecified; Translations: [Chronic rhinitis] Onset: 10-25-2024 10-25-2024 Chronic Residual codes; unclassified (1 source) Sleep apnea, unspecified; Translations: [SLEEP APNEA UNSPECIFIED] Onset: 11-07-2022 Chronic Residual codes; unclassified (20 sources) Obstructive sleep apnea syndrome; Translations: [Obstructive [...] [Seizure] Onset: 01-19-1975 07-15-2023 Episodic Mood disorders (20 sources) Mood disorders Onset: 11-29-2023 Resolved: 11-22-2024 11-29-2023 Nonspecific chest pain (4 sources) Chest pain, unspecified; Translations: [CHEST PAIN UNSPECIFIED] Onset: 06-12-2022 Episodic Other aftercare (20 sources) Long-term current use of drug therapy; Translations: [Other moth exterminator (current) drug therapy] Onset: 11-29-2023 11-29-2023 Episodic Other aftercare (20 sources) Post-discharge follow-up; Translations: [Encounter for follow-up examination after completed treatment for conditions other than malignant neoplasm] Onset: 01-11-2024 Resolved: 02-21-2024 02-21-2024 Episodic Other aftercare (1 source) Patient encounter status; Translations: [Other chcf (current) drug therapy] Onset: 11-29-2023 11-29-2023 Episodic Other connective tissue disease (4 sources) Pain in right foot; Translations: [PAIN IN RIGHT FOOT] Onset: 09-29-2022 Episodic Other fractures (20 sources) Closed fracture of multiple ribs; Translations: [...] Onset: 06-22-2022 11-29-2023 Episodic Residual codes; unclassified (20 sources) Bilateral lower limb edema; Translations: [Localized [...] Panel InformationOrdered By: Fay Adhikari on 11-27-2024 [facility] Radiology Study observation (narrative) [facility] XR knee RT 4V*on 10-17-2024 XR knee RT 4V* [facility] Main [address] [address] XRay Report Signed Patient: Nazario Cortes Jr MR#: [id number] : 1955 Acct:[id number] Age/Sex: 69 / M ADM Date: 10/17/24 Loc: XDUCLY Room: Type: REG CLI Attending Dr: Yancy Lawson SHEET MANUFACTURING SUPERVISOR Copies to: Yancy Lawson APRN Ordering Provider: [...] Hoa Lockwood M.D.10/17/2024 2:40 PM Dictation Location: [place] [address] Transcribed By: [facility] 10/17/24 1440 Dictated By: Hoa Lockwood MD 10/17/24 1438 Signed By: 10/17/24 1440 Normal [facility] XR knee RT 4V*on 09-07-2024 XR knee RT 4V* [facility] Main [address] [address] XRay Report Signed Patient: Nazario Cortes Jr MR#: [id number] : 1955 Acct:[id number] Age/Sex: 69 / M ADM Date: 09/07/24 Loc: XDUC Room: Type: REG CLI Attending Dr: Joslyn Garcia SHEET MANUFACTURING SUPERVISOR Copies to: Joslyn Garcia APRN Ordering Provider: Joslyn M Radha, SHEET MANUFACTURING SUPERVISOR Date of Service: 09/07/24 XR/XR knee RT 4V*: RIGHT KNEE PAIN RIGHT KNEE - 3 views CLINICAL HISTORY: Right knee pain COMPARISON: None FINDINGS: Mild degenerative changes without acute bony process. No significant joint effusion. XR/XR knee RT 4V* IMPRESSION: MILD DEGENERATIVE CHANGES OF THE RIGHT KNEE WITHOUT ACUTE BONY PROCESS. Impression dictated by: Bar Ching Jr., D.OKellie09/07/2024 4:15 PM Dictation Location: [facility] Transcribed By: [facility] 09/07/241614 Dictated By: Bar Ching Jr, DO 09/07/241613 Signed By: 09/07/241614 Normal [facility] Influenza virus A and B and SARS-CoV-2 (COVID-19) RNA panel - Respiratory system specon 08-16-2024 Influenza virus A and B RNA and SARS-CoV-2 (COVID-19) N gene panel ALEX+probe (Resp) Negative [facility] - Microbiology an d Antimicrobial susceptibilityon 08-16-2024 SARS-CoV-2 (COVID-19) RNA ALEX+probe Ql (Unsp spec) Negative [facility] No Panel Informationon 08-16 POC Influenza B (ALEX) Negative [facility] Follow-Upon 08-08-2024 Follow-Up [id number] SophiaNazario 1955 M Date Provider Department Center 08/08/2024 CORNELIO NEGRON [facility] SURG [place] Family History Problem Relation Age of Onset Supraventricular tachycardia Mother Stroke Father Kidney cancer Sister Diabetes Sister COPD Brother Family Status - Relation Status Age at Mother Father Sister Brother Level of Service:89928 CT OFFICE/OUTPATIENT ESTABLISHED MOD MDM 30 MIN Reason for Visit and Comments: Follow-up [224493] - Pt is here for a follow up visit for Lumbar Stenosis. Normal [facility] 36on 07-30-2024 36 Talked to patient. [...] given his ongoing issues. Verbalizes understanding. Normal [facility] Telephoneon 07-30-2024 Telephone [id number] Nazario Cortes 1955 M Date Provider Department Center 07/30/2024 Oscar-CORNELIO HODGES [facility] SURG [place] Family History Problem Relation Age of Onset Supraventricular tachycardia Mother Stroke Father Kidney cancer Sister Diabetes Sister COPD Brother Family Status - Relation Status Age at Mother Father Sister Brother Normal [facility] MR CERVICAL SPINE W AND WO [...] BOWMAN MD. Not Vldtd Invalid Interpretation Code [facility] XR elbow LT min 3V*on 2023 XR elbow LT min 3V* [facility] Main [place] [address] [place] [address] XRay Report Signed Patient: Nazario Cortes Jr MR#: [id number] : 1955 Acct:[id number] Age/Sex: 69 / M ADM Date: 05/15/24 Loc: XDUCLY Room: Type: [facility] Attending Dr: Joslyn Garcia APRN [...] Zain Fitzpatrick M.D.05/15/2024 4:23 PM Dictation Location: [place] [address] Transcribed By: [facility] 05/15/24 1623 Dictated By: Zain Fitzpatrick DO 05/15/24 1621 Signed By: 05/15/24 1623 Normal [facility] Orders Onlyon 04-11-2024 Orders Only [id number] Nazario Cortes 1955 M Date Provider Department Center 04/11/2024 [id number], HISTORICAL CARD [facility] Family History Problem Relation Age of Onset Supraventricular tachycardia Mother Stroke Father Kidney cancer Sister Diabetes Sister COPD Brother Family Status - Relation Status Age at Mother Father Sister Brother Normal [facility] Consulton 01-05-2024 Consult [id number] Nazario Cortes 1955 M Date Provider Department Center 01/05/2024 CORNELIO NEGRON [facility] SURG [place] Family History Problem Relation Age of Onset Supraventricular tachycardia Mother Stroke Father Kidney cancer Sister Diabetes Sister COPD Brother Family Status - Relation Status Age at Mother Father Sister Brother Level of Service:78347 CT OFFICE/OUTPATIENT NEW MODERATE MDM 45 MINUTES Reason [...] little relief about 6-7 years ago. Normal [facility] US CAROTID ART BILon 023 US CAROTID ART JAMEEL EXAMINATION: US CAROTID ART JAMEEL HISTORY: Syncope and collapse COMPARISON: No relevant [...] by: KELL BLANDON Date: 2023-01-11 08:42 Normal [facility] ECHOCARDIO M/2D COMPLETEon 0 01-07-2023 ECHOCARDIO M/2D COMPLETE Patient: NAZARIO CORTES Exam Date: 01/07/2023 : 1955 Gender:M Ordering : DR JIGNESH GONSALEZ . Admission #: [id number] Family : Order #: [id number] CLICK HERE TO VIEW EXAM ECHOCARDIOGRAM REPORT [...] M.D. on 01/11/2023 at 18:23 Normal [facility] XR ELBOW LT MIN 3 [...] radial head fracture. Electronically authenticated by: [employer] Date: 2022-12-24 20:23 Normal [facility] XR HIP LT 2 3V W PELVISon XR HIP LT 2 3V W PELVIS EXAM: XR HIP LT 2 3V W PELVIS HISTORY: Bone injury COMPARISON: None. TECHNIQUE: 3 views of the left hip FINDINGS: No acute fracture is seen. Joint alignment is normal. Joint spaces are preserved. Soft tissues appear unremarkable. IMPRESSION: No acute fracture or malalignment. Electronically authenticated by: [employer] Date: 2022-12-24 20:21 Normal [facility] XR HUMERUS LT MIN 2Von [...] KELL DELANEY Date: 2022-12-24 21:03 Normal [facility] CBC AUTO DIFFon 11-04-2022 BASO # 0.1 103/ul Normal 0.0-0.1 [facility] Comment on above: Performed By: #### B MP, CMREP, LIPID #### [facility] [address] [place] [address] [address] Jeimy Tenorio Basophils/100 WBC (Bld) 0.9 % Normal 0.2-2.0 [facility] Comment on above: Performed By: #### B MP, CMREP, LIPID #### [facility] [address] [place] [address] Dr. Jeimy Tenorio EO # 0.3 103/ul Normal 0.0-0.7 [facility] Comment on above: Performed By: #### B MP, CMREP, LIPID #### [facility] [address] [place] [address] Dr. Jeimy Tenorio Eosinophils/100 WBC (Bld) 5.2 % Normal 0.9-7.0 [facility] Comment on above: Performed By: #### B MP, CMREP, LIPID #### [facility] [address] [place] [address] Dr. Jeimy Tenorio Erythrocyte distribution width (RBC) [Ratio] 12.9 % Normal 11.0-15.0 [facility] Comment on above: Performed By: #### B MP, CMREP, LIPID #### [facility] [address] [place] [address] Dr. Jeimy Tenorio Hematocrit (Bld) [Volume fraction] 39.5 % Critically low 42.0-54.0 [facility] Comment on above: Performed By: #### B MP, CMREP, LIPID #### [facility] [address] [place] [address] Dr. Jeimy Tenorio Hemoglobin (Bld) [Mass/Vol] 13.1 g/dL Critically low 14.0-18.0 [facility] Comment on above: Performed By: #### B MP, CMREP, LIPID #### [facility] [address] [place] [address] Dr. Jeimy Tenorio IG # 0.03 10e3/ul Normal 0.00-0.03 [facility] Comment on above: Performed By: #### B MP, CMREP, LIPID #### [facility] [address] [place] [address] Dr. Jeimy Tenorio IG % 0.5 % Normal 0.0-0.5 [facility] Comment on above: Performed By: #### B MP, CMREP, LIPID #### [facility] [address] [place] [address] [address] Jeimy Tenorio LYMPH # 1.5 103/ul Normal 1.2-3.8 [facility] Comment on above: Performed By: #### B MP, CMREP, LIPID #### [facility] [address] [place] [address] [address] Jeimy Tenorio Lymphocytes/100 WBC (Bld) 22.6 % Normal 20.5-60.0 [facility] Comment on above: Performed By: #### B MP, CMREP, LIPID #### [facility] [address] [place] [address] [address] Jeimy Tenorio MANUAL DIFF REQ NO Normal [facility] Comment on above: Performed By: #### B MP, CMREP, LIPID #### [facility] [address] [place] [address] Dr. Jeimy Tenorio MCH (RBC) [Entitic mass] 32.8 pg Normal 25.9-34.0 [facility] Comment on above: Performed By: #### B MP, CMREP, LIPID #### [facility] [address] [place] [address] Dr. Jeimy Tenorio MCHC (RBC) [Mass/Vol] 33.2 g/dL Normal 29.9-35.2 [facility] Comment on above: Performed By: #### B MP, CMREP, LIPID #### [facility] [address] [place] [address] Dr. Jeimy Tenorio MCV (RBC) [Entitic vol] 99.0 fL Critically high 80.0-94.0 [facility] Comment on above: Performed By: #### B MP, CMREP, LIPID #### [facility] [address] [place] [address] [address] Jeimy Tenorio MONO # 0.7 103/ul Normal 0.3-0.8 [facility] Comment on above: Performed By: #### B MP, CMREP, LIPID #### [facility] [address] [place] [address] Dr. Jeimy Tenorio Monocytes/100 WBC (Bld) 10.6 % Normal 1.7-12.0 [facility] Comment on above: Performed By: #### B MP, CMREP, LIPID #### [facility] [address] [place] [address] [address] Jeimy Tenorio NEUT # 4.0 103/ul Normal 1.4-6.5 [facility] Comment on above: Performed By: #### B MP, CMREP, LIPID #### [facility] [address] [place] [address] Dr. Jeimy Tenorio Neutrophils/100 WBC (Bld) 60.2 % Normal 43.0-75.0 [facility] Comment on above: Performed By: #### B MP, CMREP, LIPID #### [facility] [address] [place] [address] Dr. Jeimy Tenorio Platelet mean volume (Bld) [Entitic vol] 9.7 fL Normal 9.5-13.5 [facility] Comment on above: Performed By: #### B MP, CMREP, LIPID #### [facility] [address] [place] [address] Dr. Jeimy Tenorio PLT 176 103/ul Normal 150-450 [facility] Comment on above: Performed By: #### B MP, CMREP, LIPID #### [facility] [facility] [address] [place] [address] Dr. Jeimy Tenorio RBC 3.99 106/ul Critically low 4.70-6.10 [facility] Comment on above: Performed By: #### B MP, CMREP, LIPID #### [facility] [address] [place] [address] Dr. Jeimy Tenorio WBC 6.6 103/ul Normal 4.0-11.0 [facility] Comment on above: Performed By: #### B MP, CMREP, LIPID #### [facility] [address] [place] [address] HEAD WO CONon [...] ALEJANDRO PINEDA Date: 2022-11-04 14:08 Normal [facility] Covid-19 PCR ([facility])on 10-21 SARS-CoV-2 (COVID-19) RNA ALEX+probe Ql (Unsp spec) Not detected Normal NOT DETECTED [facility] Comment on above: Result Comment: This test is not yet approved or cleared by the [place] FDA. When there are no FDA-approved or cleared tests available, and other criteria are met, FDA can make tests available under an emergency access mechanism called an Emergency Use Authorization (EUA). The EUA for this test is supported by the Cl[employer] Machine of Health and Human Service's (HHS's) declaration [...] By: #### B MP, CMREP, LIPID #### [facility] [address] [place] [address] Dr. Jeimy Tenorio INFLUENZA A AND B AGon 11-04 INFLUANEGH SEE BELOW Normal [facility] Comment on above: Result Comment: Nega tive for Flu A protein angiten. Infection due to Flu A cannot be ruled out. Flu A angiten in the sample may be below the detection limit of the test. Performed By: #### I NFLUAB #### [facility] [address] [place] [address] Dr. Jeimy Tenorio INFLUBNEGH SEE BELOW Normal [facility] Comment on above: Result Comment: Nega tive for Flu B protein antigen. Infection due to Flu B cannot be ruled out. Flu B antigen in the sample may be below the detection limit of the test. Performed By: #### I NFLUAB #### [facility] [address] [place] [address] Dr. Jeimy Tenorio INFLUENZA A AG Negative Normal NEGATIVE SEE COMMENT [facility] Comment on above: Performed By: #### I NFLUAB #### [facility] [address] [place] [address] Dr. Jeimy Tenorio INFLUENZA B AG Negative Normal NEGATIVE SEE COMMENT [facility] Comment on above: Performed By: #### I NFLUAB #### [facility] [address] [place] [address] Dr. Jeimy Tenorio INTERNAL CONTROLS Within Normal Limits Normal Wi thin Normal Limits [facility] Comment on above: Performed By: #### I NFLUAB #### [facility] [address] [place] [address] Dr. Jeimy Tenorio PROF CHEM 8 (BAS METB)on Anion gap [Moles/Vol] 9.7 mmol/L Normal [facility] Comment on above: Performed By: #### C BC #### [facility] [address] [place] [address] Dr. Jeimy Tenorio Calcium [Mass/Vol] 8.0 mg/dL Critically low 8.5-10.1 [facility] Comment on above: Performed By: #### C BC #### [facility] [address] [place], [place] [id number] Dr. Jeimy Tenorio Chloride [Moles/Vol] 104 mmol/L Normal 98-107 [facility] Comment on above: Performed By: #### C BC #### [facility] [address] [address] [address] Jeimy Tenorio CO2 [Moles/Vol] 31.1 mmol/L Normal 21.0-32.0 [facility] Comment on above: Performed By: #### C BC #### [facility] [address] [place] [address] Dr. Jeimy Tenorio Creatinine [Mass/Vol] 0.75 mg/dL Normal 0.70-1.30 [facility] Comment on above: Performed By: #### C BC #### [facility] [address] [place] [address] Dr. Jeimy Tenorio EGFR-AF PARAGUAYAN >60 Normal >=60 [facility] Comment on above: Performed By: #### C BC #### [facility] [address] [place] [address] Dr. Jeimy Tenorio EGFR-NON AF PARAGUAYAN >60 Normal >=60 [facility] Comment on above: Performed By: #### C BC #### [facility] [address] [place] [address] Dr. Jeimy Tenorio Glucose [Mass/Vol] 76 mg/dL Normal 74-106 [facility] Comment on above: Performed By: #### C BC #### [facility] [address] [place] [address] Dr. Jeimy Tenorio Potassium [Moles/Vol] 3.8 mmol/L Normal 3.5-5.1 [facility] Comment on above: Performed By: #### C BC #### [facility] [address] [place] [address] Dr. Jeimy Tenorio Sodium [Moles/Vol] 141 mmol/L Normal 136-145 [facility] Comment on above: Performed By: #### C BC #### [facility] [address] [place] [address] Dr. Jeimy Tenorio Urea nitrogen [Mass/Vol] 12.0 mg/dL Normal 7.0-18.0 [facility] Comment on above: Performed By: #### C BC #### [facility] [address] [place] [address] Dr. Jeimy Tenorio Urea nitrogen/Creatinine [Mass ratio] 16.0 mg/mg Normal [facility] Comment on above: Performed By: #### C BC #### [facility] [address] [place] [address] Dr. Jeimy Tenorio TROPONIN, HIGH SENSITIVITYon 11-04-2022 HSTROP 5.8 pg/mL Normal 4.0-76.1 [facility] Comment on above: Result Comment: CUT- OFF POINTS HAVE BEEN ESTABLISHED BASED ON THE FOURTH UNIVERSAL DEFINITIONS OF MYOCARDIAL INFARCTION. THE UPPER REFERENCE LIMIT (URL) OF TROPONIN, DEFINED THE 99TH PERCENTILE OF cTnI DISTRIBUTION IN A REFERENCE POPULATION, HAS BEEN CONFIRMED THE DECISION THRESHOLD FOR [place] DIAGNOSIS. Performed By: #### C BC #### [facility] [address] [place] [address] Dr. Jeimy Tenorio CBC AUTO DIFFon 09-29-2022 BASO # 0.1 103/ul Normal 0.0-0.1 [facility] Comment on above: Performed By: #### B MP, CMREP, LIPID #### [facility] [address] [place] [address] Dr. Jeimy Tenorio Basophils/100 WBC (Bld) 1.2 % Normal 0.2-2.0 [facility] Comment on above: Performed By: #### B MP, CMREP, LIPID #### [facility] [address] [place] [address] Dr. Jeimy Tenorio EO # 0.3 103/ul Normal 0.0-0.7 [facility] Comment on above: Performed By: #### B MP, CMREP, LIPID #### [facility] [address] [place] [address] Dr. Jeimy Tenorio Eosinophils/100 WBC (Bld) 4.9 % Normal 0.9-7.0 [facility] Comment on above: Performed By: #### B MP, CMREP, LIPID #### [facility] [address] [place] [address] Dr. Jeimy Tenorio Erythrocyte distribution width (RBC) [Ratio] 13.2 % Normal 11.0-15.0 [facility] Comment on above: Performed By: #### B MP, CMREP, LIPID #### [facility] [address] [place] [address] Dr. Jeimy Tenorio Hematocrit (Bld) [Volume fraction] 42.3 % Normal 42.0-54.0 [facility] Comment on above: Performed By: #### B MP, CMREP, LIPID #### [facility] [address] [place] [address] Dr. Jeimy Tenorio Hemoglobin (Bld) [Mass/Vol] 13.8 g/dL Critically low 14.0-18.0 [facility] Comment on above: Performed By: #### B MP, CMREP, LIPID #### [facility] [address] [place] [address] Dr. Jeimy Tenorio IG # 0.02 10e3/ul Normal 0.00-0.03 [facility] Comment on above: Performed By: #### B MP, CMREP, LIPID #### [facility] [address] [place] [address] Dr. Jeimy Tenorio IG % 0.3 % Normal 0.0-0.5 [facility] Comment on above: Performed By: #### B MP, CMREP, LIPID #### [facility] [address] [place] [address] Dr. Jeimy Tenorio LYMPH # 1.3 103/ul Normal 1.2-3.8 [facility] Comment on above: Performed By: #### B MP, CMREP, LIPID #### [facility] [address] [place] [address] Dr. Jeimy Tenorio Lymphocytes/100 WBC (Bld) 19.5 % Critically low 20.5-60.0 [facility] Comment on above: Performed By: #### B MP, CMREP, LIPID #### [facility] [address] [place] [address] Dr. Jeimy Tenorio MANUAL DIFF REQ NO Normal [facility] Comment on above: Performed By: #### B MP, CMREP, LIPID #### [facility] [address] [place] [address] Dr. Jeimy Tenorio MCH (RBC) [Entitic mass] 32.9 pg Normal 25.9-34.0 [facility] Comment on above: Performed By: #### B MP, CMREP, LIPID #### [facility] [address] [place] [address] Dr. Jeimy Tenorio MCHC (RBC) [Mass/Vol] 32.6 g/dL Normal 29.9-35.2 [facility] Comment on above: Performed By: #### B MP, CMREP, LIPID #### [facility] [address] [place] [address] Dr. Jeimy Tenorio MCV (RBC) [Entitic vol] 100.7 fL Critically high 80.0-94.0 [facility] Comment on above: Performed By: #### B MP, CMREP, LIPID #### [facility] [address] [place] [address] Dr. Jeimy Tenorio MONO # 0.7 103/ul Normal 0.3-0.8 [facility] Comment on above: Performed By: #### B MP, CMREP, LIPID #### [facility] [address] [place] [address] Dr. Jeimy Tenorio Monocytes/100 WBC (Bld) 9.9 % Normal 1.7-12.0 [facility] Comment on above: Performed By: #### B MP, CMREP, LIPID #### [facility] [address] [place] [address] Dr. Jeimy Tenorio NEUT # 4.3 103/ul Normal 1.4-6.5 [facility] Comment on above: Performed By: #### B MP, CMREP, LIPID #### [facility] [address] [place] [address] Dr. Jeimy Tenorio Neutrophils/100 WBC (Bld) 64.2 % Normal 43.0-75.0 [facility] Comment on above: Performed By: #### B MP, CMREP, LIPID #### [facility] [address] [place] [address] Dr. Jeimy Tenorio Platelet mean volume (Bld) [Entitic vol] 10.4 fL Normal 9.5-13.5 [facility] Comment on above: Performed By: #### B MP, CMREP, LIPID #### [facility] [address] [address] [address] Jeimy Tenorio PLT 209 103/ul Normal 150-450 [facility] Comment on above: Performed By: #### B MP, CMREP, LIPID #### [facility] [address] [address] [address] Jiemy Tenorio RBC 4.20 106/ul Critically low 4.70-6.10 [facility] Comment on above: Performed By: #### B MP, CMREP, LIPID #### [facility] [address] [place] [address] Dr. Jeimy Tenorio WBC 6.7 103/ul Normal 4.0-11.0 [facility] Comment on above: Performed By: #### B MP, CMREP, LIPID #### [facility] [address] [place] [address] Dr. Jeimy Tenorio DILANTINon 09-29-2022 Phenytoin [Mass/Vol] 23.7 ug/mL Critically high 10.0-20.0 [facility] Comment on above: Performed By: #### C BC #### [facility] [address] [place] [address] Dr. Jeimy Tenorio GLYCOHEMOGLOBIN A1Con 2021 ADA RECOMMENDATION SEE BELOW Normal [facility] Comment on above: Result Comment: ADA RECOMMENDED LIMIT 4.0 - 6.0 ADA THERAPEUTIC TARGET < 7.0 ACTION SUGGESTED > 7.0 Performed By: #### A 1C #### [facility] [address] [place] [address] Dr. Jeimy Tenorio Glucose [Mass/Vol] 105 mg/dL Normal [facility] Comment on above: Performed By: #### A 1C #### [facility] [address] [place] [address] Dr. Jeimy Tenorio HbA1c (Bld) [Mass fraction] 5.3 % Normal 4.5-6.2 [facility] Comment on above: Performed By: #### A 1C #### [facility] [address] [address] [address] Jeimy Tenorio LIPID PROFILEon 09-29-2022 CHOL-HDL RATIO NORM SEE BELOW Normal [facility] Comment on above: Result Comment: 3.3 - 4.4 LOW RISK 4.4 - 7.1 AVERAGE RISK 7.1 - 11.0 MODERATE RISK >11.0 HIGH RISK Performed By: #### B MP, CMREP, LIPID #### [facility] [address] [address] [address] Jeimy Tenorio Cholesterol [Mass/Vol] 178 mg/dL Normal <=200 [facility] Comment on above: Performed By: #### B MP, CMREP, LIPID #### [facility] [address] [address] [address] Jeimy Tenorio Cholesterol in HDL [Mass/Vol] 56 mg/dL Normal 40-60 [facility] Comment on above: Performed By: #### B MP, CMREP, LIPID #### [facility] [address] [address] [address] Jeimy Tenorio Cholesterol in LDL [Mass/Vol] 86.8 mg/dL Normal [facility] Comment on above: Performed By: #### B MP, CMREP, LIPID #### [facility] [address] [address] [address] Jeimy Tenorio Cholesterol.total/Chol esterol in HDL [Mass ratio] 3.2 {ratio} Normal [facility] Comment on above: Performed By: #### B MP, CMREP, LIPID #### [facility] [address] [address] [address] Jeimy Tenorio HDL NORMAL > or = 60 mg/dl - LOW CARDIOVASCULAR RISK <40 mg/dl - HIGH CARDIOVASCULAR RISK Normal [facility] Comment on above: Performed By: #### B MP, CMREP, LIPID #### [facility] [address] [address] [address] Jeimy Tenorio LDL CALC NORMAL SEE BELOW Normal [facility] Comment on above: Result Comment: <100 mg/dl OPTIMAL 100 - 129 mg/dl NEAR OR ABOVE OPTIMAL 130 - 159 mg/dl BORDERLINE HIGH 160 - 189 mg/dl HIGH >190 mg/dl VERY HIGH Performed By: #### B MP, CMREP, LIPID #### [facility] [address] [place] [address] Dr. Jeimy Tenorio Triglyceride [Mass/Vol] 176 mg/dL Critically high <=150 [facility] Comment on above: Performed By: #### B MP, CMREP, LIPID #### [facility] [address] [place] [address] Dr. Jeimy Tenorio VLDL CALC 35.2 mg/dL Normal [facility] Comment on above: Performed By: #### B MP, CMREP, LIPID #### [facility] [address] [place] [address] Dr. Jeimy Tenorio LIVER PROFILEon 09-29-2022 Albumin [Mass/Vol] 3.5 g/dL Normal 3.4-5.0 [facility] Comment on above: Performed By: #### B MP, CMREP, LIPID #### [facility] [address] [place] [address] Dr. Jeimy Tenorio Albumin/Globulin [Mass ratio] 0.8 {ratio} Normal [facility] Comment on above: Performed By: #### B MP, CMREP, LIPID #### [facility] [address] [place] [address] Dr. Jeimy Tenorio ALP [Catalytic activity/Vol] 139 U/L Critically high 46-116 [facility] Comment on above: Performed By: #### B MP, CMREP, LIPID #### [facility] [address] [place] [address] Dr. Jeimy Tenorio ALT [Catalytic activity/Vol] 25 U/L Normal 16-63 [facility] Comment on above: Performed By: #### B MP, CMREP, LIPID #### [facility] [address] [place] [address] Dr. Jeimy Tenorio AST [Catalytic activity/Vol] 23 U/L Normal 15-37 [facility] Comment on above: Performed By: #### B MP, CMREP, LIPID #### [facility] [address] [place] [address] Dr. Jeimy Tenorio BILI, CONJUGATED 0.0 mg/dL Normal 0.0-0.2 [facility] Comment on above: Performed By: #### B MP, CMREP, LIPID #### [facility] [address] [place] [address] Dr. Jeimy Tenorio Bilirubin [Mass/Vol] 0.3 mg/dL Normal 0.2-1.0 [facility] Comment on above: Performed By: #### B MP, CMREP, LIPID #### [facility] [address] [place] [address] Dr. Jeimy Tenorio Globulin (S) [Mass/Vol] 4.3 g/dL Normal [facility] Comment on above: Performed By: #### B MP, CMREP, LIPID #### [facility] [address] [place] [address] Dr. Jeimy Tenorio Protein [Mass/Vol] 7.8 g/dL Normal 6.4-8.2 [facility] Comment on above: Performed By: #### B MP, CMREP, LIPID #### [facility] [address] [place] [address] Dr. Jeimy Tenorio PROF CHEM 8 (BAS METB)on Anion gap [Moles/Vol] 8.7 mmol/L Normal [facility] Comment on above: Performed By: #### B MP, CMREP, LIPID #### [facility] [address] [place] [address] Dr. Jeimy Tenorio Calcium [Mass/Vol] 8.7 mg/dL Normal 8.5-10.1 [facility] Comment on above: Performed By: #### B MP, CMREP, LIPID #### [facility] [address] [place] [address] Dr. Jeimy Tenorio Chloride [Moles/Vol] 104 mmol/L Normal 98-107 [facility] Comment on above: Performed By: #### B MP, CMREP, LIPID #### [facility] [address] [place] [address] Dr. Jeimy Tenorio CO2 [Moles/Vol] 29.8 mmol/L Normal 21.0-32.0 [facility] Comment on above: Performed By: #### B MP, CMREP, LIPID #### [facility] [address] [address] [address] Jeimy Tenorio Creatinine [Mass/Vol] 0.76 mg/dL Normal 0.70-1.30 [facility] Comment on above: Performed By: #### B MP, CMREP, LIPID #### [facility] [address] [address] [address] Jeimy Tenorio EGFR-AF PARAGUAYAN >60 Normal >=60 [facility] Comment on above: Performed By: #### B MP, CMREP, LIPID #### [facility] [address] [address] [address] Jeimy Tenorio EGFR-NON AF PARAGUAYAN >60 Normal >=60 [facility] Comment on above: Performed By: #### B MP, CMREP, LIPID #### [facility] [address] [address] [address] Jeimy Tenorio Glucose [Mass/Vol] 95 mg/dL Normal 74-106 [facility] Comment on above: Performed By: #### B MP, CMREP, LIPID #### [facility] [address] [address] [address] Jeimy Tenorio Potassium [Moles/Vol] 4.5 mmol/L Normal 3.5-5.1 [facility] Comment on above: Performed By: #### B MP, CMREP, LIPID #### [facility] [address] [address] [address] Jeiym Tenorio Sodium [Moles/Vol] 138 mmol/L Normal 136-145 [facility] Comment on above: Performed By: #### B MP, CMREP, LIPID #### [facility] [address] [address] [address] Jeimy Tenorio Urea nitrogen [Mass/Vol] 18.0 mg/dL Normal 7.0-18.0 [facility] Comment on above: Performed By: #### B MP, CMREP, LIPID #### [facility] [address] [address] [address] Jeimy Tenorio Urea nitrogen/Creatinine [Mass ratio] 23.7 mg/mg Normal [facility] Comment on above: Performed By: #### B MP, CMREP, LIPID #### [facility] [address] [address] [address] Jeimy Tenorio TSHon 09-29-2022 TSH 1.694 uIU/mL Normal 0.358-3.740 [facility] Comment on above: Performed By: #### B MP, CMREP, LIPID #### [facility] [address] [address] [address] Jeimy Tenorio CARDIAC SAWYER 3-6on 2 CK [Catalytic activity/Vol] 47 U/L Normal 39-308 [facility] Comment on above: Performed By: #### B MP, CMREP, LIPID #### [facility] [address] [place] [address] Dr. Jeimy Tenorio CK.MB [Mass/Vol] 0.77 ng/mL Normal <=3.60 [facility] Comment on above: Performed By: #### B MP, CMREP, LIPID #### [facility] [address] [place] [address] Dr. Jeimy Tenorio HSTROP 6.9 pg/mL Normal 4.0-76.1 [facility] Comment on above: Result Comment: CUT- OFF POINTS HAVE BEEN ESTABLISHED BASED ON THE FOURTH UNIVERSAL DEFINITIONS OF MYOCARDIAL INFARCTION. THE UPPER REFERENCE LIMIT (URL) OF TROPONIN, DEFINED THE 99TH PERCENTILE OF cTnI DISTRIBUTION IN A REFERENCE POPULATION, HAS BEEN CONFIRMED THE DECISION THRESHOLD FOR UT DIAGNOSIS. Performed By: #### B MP, CMREP, LIPID #### [facility] [address] [address] [address] Jeimy Tenorio CK [Catalytic activity/Vol] 53 U/L Normal 39-308 [facility] Comment on above: Performed By: #### C BC #### [facility] [address] [place] [address] Dr. Jeimy Tenorio CK.MB [Mass/Vol] 0.80 ng/mL Normal <=3.60 [facility] Comment on above: Performed By: #### C BC #### [facility] [address] [address] [address] Jeimy Tenorio HSTROP 6.2 pg/mL Normal 4.0-76.1 [facility] Comment on above: Result Comment: CUT- OFF POINTS HAVE BEEN ESTABLISHED BASED ON THE FOURTH UNIVERSAL DEFINITIONS OF MYOCARDIAL INFARCTION. THE UPPER REFERENCE LIMIT (URL) OF TROPONIN, DEFINED THE 99TH PERCENTILE OF cTnI DISTRIBUTION IN A REFERENCE POPULATION, HAS BEEN CONFIRMED THE DECISION THRESHOLD FOR UT DIAGNOSIS. Performed By: #### C BC #### [facility] [address] [place] [address] Dr. Jeimy Tenorio CBC AUTO DIFFon 06-12-2022 BASO # 0.1 103/ul Normal 0.0-0.1 [facility] Comment on above: Performed By: #### C BC #### [facility] [address] [place] [address] Dr. Jeimy Tenorio Basophils/100 WBC (Bld) 0.9 % Normal 0.2-2.0 [facility] Comment on above: Performed By: #### C BC #### [facility] [address] [place] [address] Dr. Jeimy Tenorio EO # 0.3 103/ul Normal 0.0-0.7 [facility] Comment on above: Performed By: #### C BC #### [facility] [address] [place] [address] Dr. Jeimy Tenorio Eosinophils/100 WBC (Bld) 5.2 % Normal 0.9-7.0 [facility] Comment on above: Performed By: #### C BC #### [facility] [address] [place] [address] Dr. Jeimy Tenorio Erythrocyte distribution width (RBC) [Ratio] 13.0 % Normal 11.0-15.0 [facility] Comment on above: Performed By: #### C BC #### [facility] [address] [place] [address] Dr. Jeimy Tenorio Hematocrit (Bld) [Volume fraction] 39.1 % Critically low 42.0-54.0 [facility] Comment on above: Performed By: #### C BC #### [facility] [address] [address] [address] Jeimy Tenorio Hemoglobin (Bld) [Mass/Vol] 13.2 g/dL Critically low 14.0-18.0 [facility] Comment on above: Performed By: #### C BC #### [facility] [address] [address] [address] Jeimy Tenorio IG # 0.03 10e3/ul Normal 0.00-0.03 [facility] Comment on above: Performed By: #### C BC #### [facility] [address] [place] [address] Dr. Jeimy Tenorio IG % 0.5 % Normal 0.0-0.5 [facility] Comment on above: Performed By: #### C BC #### [facility] [address] [place] [address] Dr. Jeimy Tenorio LYMPH # 1.7 103/ul Normal 1.2-3.8 [facility] Comment on above: Performed By: #### C BC #### [facility] [address] [place] [address] Dr. Jeimy Tenorio Lymphocytes/100 WBC (Bld) 26.0 % Normal 20.5-60.0 [facility] Comment on above: Performed By: #### C BC #### [facility] [address] [place] [address] Dr. Jeimy Tenorio MANUAL DIFF REQ NO Normal [facility] Comment on above: Performed By: #### C BC #### [facility] [address] [place] [address] Dr. Jeimy Tenorio MCH (RBC) [Entitic mass] 33.2 pg Normal 25.9-34.0 [facility] Comment on above: Performed By: #### C BC #### [facility] [address] [place] [address] Dr. Jeimy Tenorio MCHC (RBC) [Mass/Vol] 33.8 g/dL Normal 29.9-35.2 [facility] Comment on above: Performed By: #### C BC #### [facility] [address] [address] [address] Jeimy Tenorio MCV (RBC) [Entitic vol] 98.5 fL Critically high 80.0-94.0 [facility] [facility] Comment on above: Performed By: #### C BC #### [facility] [address] [address] [address] Jeimy Tenorio MONO # 0.8 103/ul Normal 0.3-0.8 [facility] Comment on above: Performed By: #### C BC #### [facility] [address] [address] [address] Jeimy Tenorio Monocytes/100 WBC (Bld) 12.2 % Critically high 1.7-12.0 [facility] Comment on above: Performed By: #### C BC #### [facility] [address] [place] [address] Dr. Jeimy Tenorio NEUT # 3.6 103/ul Normal 1.4-6.5 [facility] Comment on above: Performed By: #### C BC #### [facility] [address] [address] [address] Jeimy Tenorio Neutrophils/100 WBC (Bld) 55.2 % Normal 43.0-75.0 [facility] Comment on above: Performed By: #### C BC #### [facility] [address] [place] [address] Dr. Jeimy Tenorio Platelet mean volume (Bld) [Entitic vol] 9.9 fL Normal 9.5-13.5 [facility] Comment on above: Performed By: #### C BC #### [facility] [address] [address] [address] Jeimy Tenorio PLT 174 103/ul Normal 150-450 [facility] Comment on above: Performed By: #### C BC #### [facility] [address] [address] [address] Jeimy Tenorio RBC 3.97 106/ul Critically low 4.70-6.10 [facility] Comment on above: Performed By: #### C BC #### [facility] [address] [place], [place] [address] Dr. Jeimy Tenorio WBC 6.5 103/ul Normal 4.0-11.0 [facility] Comment on above: Performed By: #### C #### [facility] [address] [place], [place] [address] Dr. Jeimy Tenorio CTA CHEST WO W [...] MAMIE ALFORD Date: 2022-06-12 00:21 Normal [facility] Covid-19 PCR (CVDTBH)on 05-22 SARS-CoV-2 (COVID-19) RNA ALEX+probe Ql (Unsp spec) Not detected Normal NOT DETECTED [facility] Comment on above: Result Comment: [...] for this test is supported by the [employer] of Health and Human Service's declaration that [...] By: #### B MP, CMREP, LIPID #### [facility] [address] [place] [address] Dr. Jeimy Tenorio ER URINE PROFILEon 2 Bilirubin Ql (U) Negative Normal NEGATIVE [facility] Comment on above: Performed By: #### E RUR #### [facility] [address] [place] [address] Dr. Jeimy Tenorio Clarity (U) CLEAR Normal CLEAR [facility] Comment on above: Performed By: #### E RUR #### [facility] [address] [place] [address] Dr. Jeimy Tenorio Color (U) LT. YELLOW Normal YELLOW [facility] Comment on above: Performed By: #### E RUR #### [facility] [address] [place] [address] Dr. Jeimy Tenorio ERUAHD A micrscopic examination will be performed if indicated. Normal [facility] Comment on above: Performed By: #### E RUR #### [facility] [address] [place] [address] Dr. Jeimy Tenorio Glucose Ql (U) Negative Normal NEGATIVE [facility] Comment on above: Performed By: #### E RUR #### [facility] [address] [place] [address] Dr. Jeimy Tenorio Hemoglobin Ql (U) Negative Normal NEGATIVE [facility] Comment on above: Performed By: #### E RUR #### [facility] [address] [place] [address] Dr. Jeimy Tenorio Ketones Ql (U) TRACE Abnormal NEGATIVE [facility] Comment on above: Performed By: #### E RUR #### [facility] [address] [place] [address] Dr. Jeimy Tenorio LEUKOCYTES Negative Normal NEGATIVE [facility] Comment on above: Performed By: #### E RUR #### [facility] [address] [place] [address] Dr. Jeimy Tenorio Nitrite Ql (U) Negative Normal NEGATIVE [facility] Comment on above: Performed By: #### E RUR #### [facility] [address] [place] [address] Dr. Jeimy Tenorio pH (U) 5.5 [pH] Normal 5-9 [facility] Comment on above: Performed By: #### E RUR #### [facility] [address] [place] [address] Dr. Jeimy Tenorio SPEC GRAVITY 1.010 Normal 1.005-<=1.02 5 [facility] Comment on above: Performed By: #### E RUR #### [facility] [address] [place] [address] Dr. Jeimy Tenorio UA PROTEIN Negative Normal NEGATIVE/ TRACE [facility] Comment on above: Performed By: #### E RUR #### [facility] [address] [place] [address] Dr. Jeimy Tenorio UR MICRO IND NOT INDICATED Normal [facility] Comment on above: Performed By: #### E RUR #### [facility] [address] [place] [address] Dr. Jeimy Tenorio Urobilinogen Qn (U) 0.2 {Raphael'U}/dL Normal 0.2 - 1. 0 [facility] Comment on above: Performed By: #### E RUR #### [facility] [address] [place] [address] Dr. Jeimy Tenorio GLYCOHEMOGLOBIN A1Con 07-23- 2022 ADA RECOMMENDATION SEE BELOW Normal [facility] Comment on above: Result Comment: ADA RECOMMENDED LIMIT 4.0 - 6.0 ADA THERAPEUTIC TARGET < 7.0 ACTION SUGGESTED > 7.0 Performed By: #### C BC #### [facility] [address] [address] [address] Jeimy Tenorio Glucose [Mass/Vol] 103 mg/dL Normal [facility] Comment on above: Performed By: #### C BC #### [facility] [address] [place] [address] Dr. Jeimy Tenorio HbA1c (Bld) [Mass fraction] 5.2 % Normal 4.5-6.2 [facility] Comment on above: Performed By: #### C BC #### [facility] [address] [place] [address] Dr. Jeimy Tenorio LIPID PROFILEon 06-12-2022 CHOL-HDL RATIO NORM SEE BELOW Normal [facility] Comment on above: Result Comment: 3.3 - 4.4 LOW RISK 4.4 - 7.1 AVERAGE RISK 7.1 - 11.0 MODERATE RISK >11.0 HIGH RISK Performed By: #### B MP, CMREP, LIPID #### [facility] [address] [place] [address] Dr. Jeimy Tenorio Cholesterol [Mass/Vol] 142 mg/dL Normal <=200 [facility] Comment on above: Performed By: #### B MP, CMREP, LIPID #### [facility] [address] [place] [address] Dr. Jeimy Tenorio Cholesterol in HDL [Mass/Vol] 49 mg/dL Normal 40-60 [facility] Comment on above: Performed By: #### B MP, CMREP, LIPID #### [facility] [address] [place] [address] Dr. Jeimy Tenorio Cholesterol in LDL [Mass/Vol] 64.6 mg/dL Normal [facility] Comment on above: Performed By: #### B MP, CMREP, LIPID #### [facility] [address] [place] [address] Dr. Jeimy Tenorio Cholesterol.total/Chol esterol in HDL [Mass ratio] 2.9 {ratio} Normal [facility] Comment on above: Performed By: #### B MP, CMREP, LIPID #### [facility] [address] [address] [address] Jeimy Tenorio HDL NORMAL > or = 60 mg/dl - LOW CARDIOVASCULAR RISK <40 mg/dl - HIGH CARDIOVASCULAR RISK Normal [facility] Comment on above: Performed By: #### B MP, CMREP, LIPID #### [facility] [address] [address] [address] Jeimy Tenorio LDL CALC NORMAL SEE BELOW Normal [facility] Comment on above: Result Comment: <100 mg/dl OPTIMAL 100 - 129 mg/dl NEAR OR ABOVE OPTIMAL 130 - 159 mg/dl BORDERLINE HIGH 160 - 189 mg/dl HIGH >190 mg/dl VERY HIGH Performed By: #### B MP, CMREP, LIPID #### [facility] [address] [address] [address] Jeimy Tenorio Triglyceride [Mass/Vol] 142 mg/dL Normal <=150 [facility] Comment on above: Performed By: #### B MP, CMREP, LIPID #### [facility] [address] [address] [address] Jeimy Tenorio VLDL CALC 28.4 mg/dL Normal [facility] Comment on above: Performed By: #### B MP, CMREP, LIPID #### [facility] [address] [address] [address] Jeimy Tenorio PROF CHEM 8 (BAS METB)on Anion gap [Moles/Vol] 10.1 mmol/L Normal [facility] Comment on above: Performed By: #### B MP, CMREP, LIPID #### [facility] [address] [place] [address] Dr. Jemiy Tenorio Calcium [Mass/Vol] 8.0 mg/dL Critically low 8.5-10.1 [facility] Comment on above: Performed By: #### B MP, CMREP, LIPID #### [facility] [address] [place] [address] Dr. Jeimy Tenorio Chloride [Moles/Vol] 104 mmol/L Normal 98-107 [facility] Comment on above: Performed By: #### B MP, CMREP, LIPID #### [facility] [address] [address] [address] Jeimy Tenorio CO2 [Moles/Vol] 27.0 mmol/L Normal 21.0-32.0 [facility] Comment on above: Performed By: #### B MP, CMREP, LIPID #### [facility] [address] [address] [address] Jeimy Tenorio Creatinine [Mass/Vol] 0.79 mg/dL Normal 0.70-1.30 [facility] Comment on above: Performed By: #### B MP, CMREP, LIPID #### [facility] [address] [place] [address] Dr. Jeimy Tenorio EGFR-AF PARAGUAYAN >60 Normal >=60 [facility] Comment on above: Performed By: #### B MP, CMREP, LIPID #### [facility] [address] [place] [address] Dr. Jeimy Tenorio EGFR-NON AF PARAGUAYAN >60 Normal >=60 [facility] Comment on above: Performed By: #### B MP, CMREP, LIPID #### [facility] [address] [place] [address] Dr. Jeimy Tenorio Glucose [Mass/Vol] 101 mg/dL Normal 74-106 [facility] Comment on above: Performed By: #### B MP, CMREP, LIPID #### [facility] [address] [address] [address] Jeimy Tenorio Potassium [Moles/Vol] 4.1 mmol/L Normal 3.5-5.1 [facility] Comment on above: Performed By: #### B MP, CMREP, LIPID #### [facility] [address] [place] [address] Dr. Jeimy Tenorio Sodium [Moles/Vol] 137 mmol/L Normal 136-145 [facility] Comment on above: Performed By: #### B MP, CMREP, LIPID #### [facility] [address] [address] [address] Jeimy Tenorio Urea nitrogen [Mass/Vol] 15.0 mg/dL Normal 7.0-18.0 [facility] Comment on above: Performed By: #### B MP, CMREP, LIPID #### [facility] [address] [place] [address] Dr. Jeimy Tenorio Urea nitrogen/Creatinine [Mass ratio] 19.0 mg/mg Normal [facility] Comment on above: Performed By: #### B MP, CMREP, LIPID #### [facility] [address] [place] [address] Dr. Jeimy Tenorio CARDIAC SAWYER ADMITon 022 CK [Catalytic activity/Vol] 50 U/L Normal 39-308 [facility] Comment on above: Performed By: #### C BC #### [facility] [address] [place] [address] Dr. Jeimy Tenorio CK.MB [Mass/Vol] 0.80 ng/mL Normal <=3.60 [facility] Comment on above: Performed By: #### C BC #### [facility] [address] [place] [address] Dr. Jeimy Tenorio HSTROP 5.2 pg/mL Normal 4.0-76.1 [facility] Comment on above: Result Comment: CUT- OFF POINTS HAVE BEEN ESTABLISHED BASED ON THE FOURTH UNIVERSAL DEFINITIONS OF MYOCARDIAL INFARCTION. THE UPPER REFERENCE LIMIT (URL) OF TROPONIN, DEFINED THE 99TH PERCENTILE OF cTnI DISTRIBUTION IN A REFERENCE POPULATION, HAS BEEN CONFIRMED THE DECISION THRESHOLD FOR UT DIAGNOSIS. Performed By: #### C BC #### [facility] [address] [place] [address] Dr. Jeimy Tenorio MAGALIE 41 ng/mL Normal 16-96 [facility] Comment on above: Performed By: #### C BC #### [facility] [address] [place] [address] Dr. Jeimy Tenorio CBC AUTO DIFFon 06-11-2022 BASO # 0.0 103/ul Normal 0.0-0.1 [facility] Comment on above: Performed By: #### C BC #### [facility] [address] [place] [address] Dr. Jeimy Tenorio Basophils/100 WBC (Bld) 0.6 % Normal 0.2-2.0 [facility] Comment on above: Performed By: #### C BC #### [facility] [address] [place] [address] Dr. Jeimy Tenorio EO # 0.4 103/ul Normal 0.0-0.7 [facility] Comment on above: Performed By: #### C BC #### [facility] [address] [place] [address] Dr. Jeimy Tenorio Eosinophils/100 WBC (Bld) 4.9 % Normal 0.9-7.0 [facility] Comment on above: Performed By: #### C BC #### [facility] [address] [place] [address] Dr. Jeimy Tenorio Erythrocyte distribution width (RBC) [Ratio] 13.1 % Normal 11.0-15.0 [facility] Comment on above: Performed By: #### C BC #### [facility] [address] [place] [address] Dr. Jeimy Tenorio Hematocrit (Bld) [Volume fraction] 38.1 % Critically low 42.0-54.0 [facility] Comment on above: Performed By: #### C BC #### [facility] [address] [place] [address] Dr. Jeimy Tenorio Hemoglobin (Bld) [Mass/Vol] 13.0 g/dL Critically low 14.0-18.0 [facility] Comment on above: Performed By: #### C BC #### [facility] [address] [place] [address] Dr. Jeimy Tenorio IG # 0.02 10e3/ul Normal 0.00-0.03 [facility] Comment on above: Performed By: #### C BC #### [facility] [address] [place] [address] Dr. Jeimy Tenorio IG % 0.3 % Normal 0.0-0.5 [facility] Comment on above: Performed By: #### C BC #### [facility] [address] [place] [address] Dr. Jeimy Tenorio LYMPH # 1.7 103/ul Normal 1.2-3.8 [facility] Comment on above: Performed By: #### C BC #### [facility] [address] [place] [address] Dr. Jeimy Tenorio Lymphocytes/100 WBC (Bld) 22.9 % Normal 20.5-60.0 [facility] Comment on above: Performed By: #### C BC #### [facility] [address] [place] [address] Dr. Jeimy Tenorio MANUAL DIFF REQ NO Normal [facility] Comment on above: Performed By: #### C BC #### [facility] [address] [place] [address] Dr. Jeimy Tenorio MCH (RBC) [Entitic mass] 33.5 pg Normal 25.9-34.0 [facility] Comment on above: Performed By: #### C BC #### [facility] [address] [place] [address] Dr. Jeimy Tenorio MCHC (RBC) [Mass/Vol] 34.1 g/dL Normal 29.9-35.2 [facility] Comment on above: Performed By: #### C BC #### [facility] [address] [place] [address] Dr. Jeimy Tenorio MCV (RBC) [Entitic vol] 98.2 fL Critically high 80.0-94.0 [facility] Comment on above: Performed By: #### C BC #### [facility] [address] [place] [address] Dr. Jeimy Tenorio MONO # 0.8 103/ul Normal 0.3-0.8 [facility] Comment on above: Performed By: #### C BC #### [facility] [address] [place] [address] Dr. Jeimy Tenorio Monocytes/100 WBC (Bld) 11.5 % Normal 1.7-12.0 [facility] Comment on above: Performed By: #### C BC #### [facility] [address] [place] [address] Dr. Jeimy Tenorio NEUT # 4.3 103/ul Normal 1.4-6.5 [facility] Comment on above: Performed By: #### C BC #### [facility] [address] [place] [address] Dr. Jeimy Tenorio Neutrophils/100 WBC (Bld) 59.8 % Normal 43.0-75.0 [facility] Comment on above: Performed By: #### C BC #### [facility] [address] [place] [address] Dr. Jeimy Tenorio Platelet mean volume (Bld) [Entitic vol] 9.8 fL Normal 9.5-13.5 [facility] Comment on above: Performed By: #### C BC #### [facility] [address] [place] [address] Dr. Jeimy Tenorio PLT 181 103/ul Normal 150-450 [facility] Comment on above: Performed By: #### C BC #### [facility] [address] [place] [address] Dr. Jeimy Tenorio RBC 3.88 106/ul Critically low 4.70-6.10 [facility] Comment on above: Performed By: #### C BC #### [facility] [address] [place] [address] Dr. Jeimy Tenorio WBC 7.2 103/ul Normal 4.0-11.0 [facility] Comment on above: Performed By: #### C BC #### [facility] [address] [place], [place] [id number] Dr. Jeimy Tenorio D-DIMERon 06-11-2022 D-DIMER 0.63 mg/L FEU Critically high <=0.59 [facility] Comment on above: Performed By: #### D DIM #### [facility] [address] [place] [address] Dr. Jeimy Tenorio D-DIMER COMMENTS SEE BELOW Normal [facility] Comment on above: Result Comment: Incr eases [...] hospitalization. Performed By: #### D DIM #### [facility] [address] [place] [address] Dr. Jeimy Tenorio PROF 14(COMP METB)on 022 Albumin [Mass/Vol] 3.3 g/dL Critically low 3.4-5.0 [facility] Comment on above: Performed By: #### C BC #### [facility] [address] [place] [address] Dr. Jeimy Tenorio Albumin/Globulin [Mass ratio] 0.8 {ratio} Normal [facility] Comment on above: Performed By: #### C BC #### [facility] [address] [place] [address] Dr. Jeimy Tenorio ALP [Catalytic activity/Vol] 160 U/L Critically high 46-116 [facility] Comment on above: Performed By: #### C BC #### [facility] [address] [place] [address] Dr. Jeimy Tenorio ALT [Catalytic activity/Vol] 26 U/L Normal 16-63 [facility] Comment on above: Performed By: #### C BC #### [facility] [address] [place] [address] Dr. Jeimy Tenorio Anion gap [Moles/Vol] 10.4 mmol/L Normal [facility] Comment on above: Performed By: #### C BC #### [facility] [address] [place] [address] Dr. Jeimy Tenorio AST [Catalytic activity/Vol] 16 U/L Normal 15-37 [facility] Comment on above: Performed By: #### C BC #### [facility] [address] [place] [address] Dr. Jeimy Tenorio Bilirubin [Mass/Vol] 0.2 mg/dL Normal 0.2-1.0 [facility] Comment on above: Performed By: #### C BC #### [facility] [address] [address] [address] Jeimy Tenorio Calcium [Mass/Vol] 8.2 mg/dL Critically low 8.5-10.1 [facility] Comment on above: Performed By: #### C BC #### [facility] [address] [address] [address] Jeimy Tenorio Chloride [Moles/Vol] 105 mmol/L Normal 98-107 [facility] Comment on above: Performed By: #### C BC #### [facility] [address] [place] [address] Dr. Jeimy Tenorio CO2 [Moles/Vol] 26.5 mmol/L Normal 21.0-32.0 [facility] Comment on above: Performed By: #### C BC #### [facility] [address] [place] [address] Dr. Jeimy Tenorio Creatinine [Mass/Vol] 0.96 mg/dL Normal 0.70-1.30 [facility] Comment on above: Performed By: #### C BC #### [facility] [address] [place] [address] Dr. Jeimy Tenorio EGFR-AF PARAGUAYAN >60 Normal >=60 [facility] Comment on above: Performed By: #### C BC #### [facility] [address] [place] [address] Dr. Jeimy Tenorio EGFR-NON AF PARAGUAYAN >60 Normal >=60 [facility] Comment on above: Performed By: #### C BC #### [facility] [address] [place] [address] Dr. Jeimy Tenorio Globulin (S) [Mass/Vol] 4.0 g/dL Normal [facility] Comment on above: Performed By: #### C BC #### [facility] [address] [place] [address] Dr. Jeimy Tenorio Glucose [Mass/Vol] 140 mg/dL Critically high 74-106 [facility] Comment on above: Performed By: #### C BC #### [facility] [address] [place] [address] Dr. Jeimy Tenorio Potassium [Moles/Vol] 3.9 mmol/L Normal 3.5-5.1 [facility] Comment on above: Performed By: #### C BC #### [facility] [address] [address] [address] Jeimy Tenorio Protein [Mass/Vol] 7.3 g/dL Normal 6.4-8.2 [facility] Comment on above: Performed By: #### C BC #### [facility] [address] [address] [address] Jeimy Tenorio Sodium [Moles/Vol] 138 mmol/L Normal 136-145 [facility] Comment on above: Performed By: #### C BC #### [facility] [address] [address] [address] Jeimy Tenorio Urea nitrogen [Mass/Vol] 15.0 mg/dL Normal 7.0-18.0 [facility] Comment on above: Performed By: #### C BC #### [facility] [address] [address] [address] Jeimy Tenorio Urea nitrogen/Creatinine [Mass ratio] 15.6 mg/mg Normal [facility] Comment on above: Performed By: #### C BC #### [facility] [address] [place] [address] Dr. Jeimy Tenorio [facility] METABOLIC [facility] 10-30-2021 Albumin [Mass/Vol] 4.3 g/dL Normal 3.6-5.1 [facility] Comment on above: Performed By: #### 7 13, 4230, [id number] #### [facility] [address] [place] [address] [employer] Operator: Yash Campuzano MD Albumin/Globulin [Mass ratio] 1.3 {ratio} Normal 1.0-2.5 [facility] Comment on above: Performed By: #### 7 13, 8280, 53996 #### [facility] [address], [address] [place], [place] [id number] [employer]: Yash Campuzano MD ALP [Catalytic activity/Vol] 152 U/L High 35-144 [facility] Comment on above: Performed By: #### 7 13, 7600, 96146 #### [facility] of [address], [address] [place] [address] [employer]: Yash Campuzano MD ALT [Catalytic activity/Vol] 30 U/L Normal 9-46 [facility] Comment on above: Performed By: #### 7 13, 7600, 20791 #### [facility] of [address], [address] [place] [address] [employer]: Yash Campuzano MD AST [Catalytic activity/Vol] 26 U/L Normal 10-35 [facility] Comment on above: Performed By: #### 7 13, 7599, 73332 #### [facility] [address], [address] [place] [address] [employer]: Yash Campuzano MD Bilirubin [Mass/Vol] 0.4 mg/dL Normal 0.2-1.2 [facility] Comment on above: Performed By: #### 7 13, 7599, 28660 #### [facility] [address], [address] [place] [address] [employer]: Yash Campuzano MD BUN/CREATININE RATIO NOT APPLICABLE Normal 6-22 [facility] Comment on above: Performed By: #### 7 13, 0, 32196 #### [facility] [address], [address] [place] [address] [employer]: Yash Campuzano MD Calcium [Mass/Vol] 8.8 mg/dL Normal 8.6-10.3 [facility] Comment on above: Performed By: #### 7 13, 0, 96123 #### [facility] of [address], [address] [place] [address] [employer]: Yash Campuzano MD Chloride [Moles/Vol] 104 mmol/L Normal 98-110 [facility] Comment on above: Performed By: #### 7 13, 7600, [id number] #### [facility] of [address], [address] [place] [address] [employer]: Yash Campuzano MD CO2 [Moles/Vol] 25 mmol/L Normal 20-32 [facility] Comment on above: Performed By: #### 7 , 0, 02165 #### [facility] [place] [address] [employer]: Yash Campuzano MD Creatinine [Mass/Vol] 0.76 mg/dL Normal 0.70-1.25 [facility] Comment on above: Result Comment: For patients >49 years of age, the reference limit for Creatinine is approximately 13% higher for people identified as -Nigerian. Performed By: #### 7 , 7599, 38569 #### [facility] [place] [address] [employer] Operator: Yash Campuzano MD eGFR NON-AFR. PARAGUAYAN 95 mL/min/1.73m2 Normal > OR = 60 [facility] Comment on above: Performed By: #### 7 , 7599, 81120 #### [facility] [place] [address] [employer] Operator: Yash Campuzano MD GFR/1.73 sq M.predicted among blacks MDRD (S/P/Bld) [Vol rate/Area] 110 mL/min/{1.73_m2} Normal > OR = 60 [facility] Comment on above: Performed By: #### 7 , 7599, 84328 #### [facility] [place] [address] [employer] Operator: aYsh Campuzano MD Globulin (S) [Mass/Vol] 3.2 g/dL Normal 1.9-3.7 [facility] Comment on above: Performed By: #### 7 , 7599, 00907 #### [facility] [place] [address] [employer] Operator: Yash Campuzano MD Glucose [Mass/Vol] 103 mg/dL High 65-99 [facility] Comment on above: Result Comment: Fasting reference interval For someone without known diabetes, a glucose value between 100 and 125 mg/dL is consistent with prediabetes and should be confirmed with a follow-up test. Performed By: #### 7 13, 0, 18656 #### [facility] [place] [address] [employer] Operator: Yash Campuzano MD Potassium [Moles/Vol] 4.7 mmol/L Normal 3.5-5.3 [facility] Comment on above: Performed By: #### 7 13, 7599, 18606 #### [facility] [place] [address] [employer] Operator: Yash Campuzano MD Protein [Mass/Vol] 7.5 g/dL Normal 6.1-8.1 [facility] Comment on above: Performed By: #### 7 13, 7599, 52003 #### [facility] [place] [address] [employer] Operator: Yash Campuzano MD Sodium [Moles/Vol] 137 mmol/L Normal 135-146 [facility] Comment on above: Performed By: #### 7 13, 7599, 59165 #### [facility] [place] [address] [employer] Operator: Yash Campuzano MD Urea nitrogen [Mass/Vol] 15 mg/dL Normal 7-25 [facility] Comment on above: Performed By: #### 7 13, 7599, 30669 #### [facility] [place] [address] [employer] Operator: Yash Campuzano MD LIPID PANEL, [facility] 12- Cholesterol [Mass/Vol] 180 mg/dL Normal <200 [facility] Comment on above: Order Comment: FASTI NG:YES FASTING: YES Performed By: #### 7 13, 760, 04225 #### [facility] of [place] [address] [employer] Operator: Yash Campuzano MD Cholesterol in HDL [Mass/Vol] 50 mg/dL Normal > OR = 40 [facility] Comment on above: Order Comment: FASTI NG:YES FASTING: YES Performed By: #### 7 , 7599, 88694 #### [facility] [address], [address] [place] [address] [employer] Operator: Yash Campuzano MD Cholesterol in LDL [...] LDL-C. Gennaro SS et al. KO. 2013;310(19): 3414-9308 (http://education.[employer]ing[employer]ai/faq/ADP677) Performed By: #### 7 , 7599, 35324 #### [facility] [address], [address] [place] [address] [employer] Operator: Yash Campuzano MD Cholesterol.total/Chol esterol in HDL [Mass ratio] 3.6 {ratio} Normal <5.0 [facility] Comment on above: Order Comment: FASTI NG:YES FASTING: YES Performed By: #### 7 , 7599, 68775 #### [facility] [address], [address] [place] [address] [employer] Operator: Yash Campuzano MD NON HDL CHOLESTEROL 130 mg/dL (calc) High <130 [facility] Comment on above: Order Comment: FASTI NG:YES FASTING: YES Result Comment: For patients with diabetes plus 1 major ASCVD risk factor, treating to a non-HDL-C goal of <100 mg/dL (LDL-C of <70 mg/dL) is considered a therapeutic option. Performed By: #### 7 , 775, 78937 #### [facility] [address], [address] [place] [address] [employer] Operator: Yash Campuzano MD Triglyceride [Mass/Vol] 280 mg/dL High <150 [facility] Comment on above: Order Comment: FASTI NG:YES FASTING: YES Result Comment: If a non-fasting specimen was collected, consider repeat triglyceride testing on a fasting specimen if clinically indicated. Marquise et al. J. of Clin. Lipidol. 2015;9:129-169. Performed By: #### 7 13, 7600, 13998 #### [facility] [place] [address] [employer] Operator: Yash Campuzano MD PHENYTOINon 10-30-2021 Phenytoin [Mass/Vol] 18.9 ug/mL Normal 10.0-20.0 [facility] Comment on above: Performed By: #### 7 13, 7600, 30040 #### [facility] [place] [address] [employer] Operator: Yash Campuzano MD CBC (INCLUDES DIFF/PLT)on Basophils (Bld) [#/Vol] 0.071 10*3/uL Normal 0-200 [facility] Comment on above: Performed By: #### 7 13, 7600, 6399 #### [facility] [address], [address] [place] [address] [employer] Operator: Yash Campuzano MD Basophils/100 WBC (Bld) 1.2 % Normal [facility] Comment on above: Performed By: #### 7 13, 7600, 6399 #### [facility] [place] [address] [employer] Operator: Yash Campuzano MD Eosinophils (Bld) [#/Vol] 0.277 10*3/uL Normal 15-500 [facility] Comment on above: Performed By: #### 7 13, 7600, 6399 #### [facility] [place] [address] [employer] Operator: Yash Campuzano MD Eosinophils/100 WBC (Bld) 4.7 % Normal [facility] Comment on above: Performed By: #### 7 13, 7600, 6399 #### [facility] [address] [employer] Operator: Yash Campuzano MD Erythrocyte distribution width (RBC) [Ratio] 12.8 % Normal 11.0-15.0 [facility] Comment on above: Performed By: #### 7 , 7599, 6399 #### [facility] [place] [address] [employer] Operator: Yash Campuzano MD Hematocrit (Bld) [Volume fraction] 42.1 % Normal 38.5-50.0 [facility] Comment on above: Performed By: #### 7 , 7599, 6399 #### [facility] [place] [address] [employer] Operator: Yash Campuzano MD Hemoglobin (Bld) [Mass/Vol] 14.9 g/dL Normal 13.2-17.1 [facility] Comment on above: Performed By: #### 7 , 7599, 6399 #### [facility] [place] [address] [employer] Operator: Yash Campuzano MD Lymphocytes (Bld) [#/Vol] 1.068 10*3/uL Normal 850-3900 [facility] Comment on above: Performed By: #### 7 , 7599, 6399 #### [facility] [place] [address] [employer] Operator: Yash Campuzano MD Lymphocytes/100 WBC (Bld) 18.1 % Normal [facility] Comment on above: Performed By: #### 7 , 7599, 6399 #### [facility] [place] [address] [employer] Operator: Yash Campuzano MD MCH (RBC) [Entitic mass] 32.9 pg Normal 27.0-33.0 [facility] Comment on above: Performed By: #### 7 , 7599, 6399 #### [facility] [place] [address] [employer] Operator: Yash Campuzano MD MCHC (RBC) [Mass/Vol] 35.4 g/dL Normal 32.0-36.[address] [facility] Comment on above: Performed By: #### 7 13, 7599, 6399 #### [facility] [place] [address] [employer] Operator: Yash Campuzano MD MCV (RBC) [Entitic vol] 92.9 fL Normal 80.0-100.0 [facility] Comment on above: Performed By: #### 7 13, 7599, 6399 #### [facility] [place] [address] [employer] Operator: Yash Campuzano MD Monocytes (Bld) [#/Vol] 0.531 10*3/uL Normal 200-950 [facility] Comment on above: Performed By: #### 7 13, 7599, 6399 #### [facility] [place] [address] [employer] Operator: Yash Campuzano MD Monocytes/100 WBC (Bld) 9.0 % Normal [facility] Comment on above: Performed By: #### 7 13, 7599, 6399 #### [facility] [place] [address] [employer] Operator: Yash Campuzano MD Neutrophils (Bld) [#/Vol] 3.953 10*3/uL Normal 5649-5110 [facility] Comment on above: Performed By: #### 7 13, 7599, 6399 #### [facility] [place] [address] [employer] Operator: Yash Campuzano MD Neutrophils/100 WBC (Bld) 67 % Normal [facility] Comment on above: Performed By: #### 7 13, 7599, 6399 #### [facility] [place] [address] [employer] Operator: Yash Campuzano MD Platelet mean volume (Bld) [Entitic vol] 11.0 fL Normal 7.5-12.5 [facility] Comment on above: Performed By: #### 7 13, 7599, 6399 #### [facility] of [address], [address] [place] [address] [employer] Operator: Yash Campuzano MD Platelets (Bld) [#/Vol] 200 10*3/uL Normal 140-400 [facility] Comment on above: Performed By: #### 7 13, 7599, 6399 #### [facility] of [address], [address] [place] [address] [employer] Operator: Yash Campuzano MD RBC (Bld) [#/Vol] 4.53 10*6/uL Normal 4.20-5.80 [facility] Comment on above: Performed By: #### 7 13, 7599, 6399 #### [facility] of [address], [address] [place] [address] [employer] Operator: Yash Campuzano MD WBC (Bld) [#/Vol] 5.9 10*3/uL Normal 3.8-10.8 [facility] Comment on above: Performed By: #### 7 13, 7599, 6399 #### [facility] of [address], [address] [place] [address] [employer] Operator: Yash Campuzano MD LIPID PANEL, [address] Cholesterol [Mass/Vol] 218 mg/dL High <200 [facility] Comment on above: Order Comment: FASTI NG:YES FASTING: YES Performed By: #### 7 13, 7599, 6399 #### [facility] of [address], [address] [place] [address] [employer] Operator: Yash Campuzano MD Cholesterol in HDL [Mass/Vol] 55 mg/dL Normal > OR = 40 [facility] Comment on above: Order Comment: FASTI NG:YES FASTING: YES Performed By: #### 7 13, 760, 6399 #### [facility] of [address], [address] [place] [address] [employer] Operator: Yash Campuzano MD Cholesterol in LDL [...] LDL-C. Gennaro SS et al. KO. 2013;310(19): 5612-9839 (http://education.[employer]/faq/HLK701) Performed By: #### 7 , 9090, 6299 #### [facility] [address], [address] [place] [address] [employer] Operator: Yash Campuzano MD Cholesterol.total/Chol esterol in HDL [Mass ratio] 4.0 {ratio} Normal <5.0 [facility] Comment on above: Order Comment: FASTI NG:YES FASTING: YES Performed By: #### 7 , 848, 8011 #### [facility] [address], [address] [place] [address] [employer] Operator: Yash Campuzano MD NON HDL CHOLESTEROL 163 mg/dL (calc) High <130 [facility] Comment on above: Order Comment: FASTI NG:YES FASTING: YES Result Comment: For patients with diabetes plus 1 major ASCVD risk factor, treating to a non-HDL-C goal of <100 mg/dL (LDL-C of <70 mg/dL) is considered a therapeutic option. Performed By: #### 7 , 786, 1899 #### [facility] [address], [address] [place] [address] [employer] Operator: Yash Campuzano MD Triglyceride [Mass/Vol] 200 mg/dL High <150 [facility] Comment on above: Order Comment: FASTI NG:YES FASTING: YES Result Comment: If a non-fasting specimen was collected, consider repeat triglyceride testing on a fasting specimen if clinically indicated. Marquise et al. J. of Clin. Lipidol. 2015;9:129-169. Performed By: #### 7 , 0190, 6399 #### [facility] [address], [address] [place] [address] [employer] Operator: Yash Campuzano MD PHENYTOINon 04-18-2021 Phenytoin [Mass/Vol] 25.0 ug/mL High 10.0-20.0 Ques t [facility] Comment on above: Performed By: #### 7 13, 4310, 6399 #### [facility] [address], [address] [place] [address] [employer] Operator: Yash Campuzano MD APTTon 11-20-2020 aPTT Coag (Bld) [Time] 33.4 s Normal 25.0-35.0 [facility] Comment on above: Result [...] THIS PURPOSE. Performed By: #### 5 6101, 42883 ####[facility] BNP EDon 11-20-2020 Natriuretic peptide B (Bld) [Mass/Vol] 111 pg/mL High 0-100 [facility] Comment on above: Result Comment: Give n the appropriate clinical setting a BNP result of >100 pg/mL indicates congestive heart failure. Performed By: #### 3 0935 #### [facility] [address] CBC W/DIFFon 11-20-2020 ABS IMM GRANS 0.0 10*3/uL Normal 0.0-0.2 [facility] Comment on above: Performed By: #### 5 0103 ####[facility] ABS NEUTROPHILS 3.9 10*3/uL Normal 1.6-7.6 [facility] Comment on above: Performed By: #### 5 0103 ####[facility] [place] [address], [facility] [[email or web address]] Basophils (Bld) [#/Vol] 0.1 10*3/uL Normal 0.0-0.2 [facility] Comment on above: Performed By: #### 5 0103 ####[facility] [place] [address], [facility] [[email or web address]] Basophils/100 WBC (Bld) 1.0 % Normal 0.0-1.0 [facility] Comment on above: Performed By: #### 5 0103 ####[facility] [facility] [place] [address], [facility] [[email or web address]] Eosinophils (Bld) [#/Vol] 0.3 10*3/uL Normal 0.0-0.5 [facility] Comment on above: Performed By: #### 5 0103 ####[facility] [place] [address], [facility] [[email or web address]] Eosinophils/100 WBC (Bld) 5.1 % Normal 0.0-6.0 [facility] Comment on above: Performed By: #### 5 0103 ####[facility]3000 [facility] Erythrocyte distribution width (RBC) [Ratio] 13.1 % Normal 11.5-15.0 [facility] Comment on above: Performed By: #### 5 3 ####[facility] [facility] [place] [address], [facility] [[email or web address]] Hematocrit (Bld) [Volume fraction] 45.4 % Normal 39.0-50.0 [facility] Comment on above: Performed By: #### 5 3 ####[facility] [place] [address], [facility] [[email or web address]] Hemoglobin (Bld) [Mass/Vol] 14.8 g/dL Normal 13.0-17.0 [facility] Comment on above: Performed By: #### 5 0103 ####[facility] IMMATURE GRANS 0.3 % Normal 0.0-1.0 The [facility] Comment on above: Performed By: #### 5 0103 ####[facility] Lymphocytes (Bld) [#/Vol] 1.0 10*3/uL Low 1.2-4.0 [facility] Comment on above: Performed By: #### 5 0103 ####[address] Lymphocytes/100 WBC (Bld) 17.5 % Low 20.0-45.0 [facility] Comment on above: Performed By: #### 5 0103 ####[address] MCH (RBC) [Entitic mass] 32.5 pg Normal 27.0-33.0 [facility] Comment on above: Performed By: #### 5 0103 ####[place] [address] [address] MCHC (RBC) [Mass/Vol] 32.6 g/dL Normal 32.0-35.0 [facility] Comment on above: Performed By: #### 5 0103 ####[facility] MCV (RBC) [Entitic vol] 99.6 fL High 82.0-98.0 [facility] Comment on above: Performed By: #### 5 3 ####[address] Monocytes (Bld) [#/Vol] 0.6 10*3/uL Normal 0.1-1.0 [facility] Comment on above: Performed By: #### 5 0103 ####[facility] [place] [address], [facility] [[email or web address]] MONOS 9.4 % Normal 5.0-12.0 [facility] Comment on above: Performed By: #### 5 0103 ####[facility] Neutrophils/100 WBC (Bld) 66.7 % Normal 40.0-72.0 [facility] Comment on above: Performed By: #### 5 0103 ####[facility] Nucleated RBC/100 WBC (Bld) [Ratio] 0 % Normal 0-0 [facility] Comment on above: Performed By: #### 5 0103 ####[facility] PLAT CNT 175 10*3/uL Normal 150-400 The [facility] Comment on above: Performed By: #### 5 0103 ####[facility] RBC (Bld) [#/Vol] 4.56 10*6/uL Normal 4.20-5.70 The [facility] Comment on above: Performed By: #### 5 0103 ####[facility] WBC (Bld) [#/Vol] 5.88 10*3/uL Normal 4.00-10.60 The [facility] Comment on above: Performed By: #### 5 3 ####[facility] COMP METABOLIC PANELon 11-20 Albumin [Mass/Vol] 4.0 g/dL Normal 3.5-5.7 [facility] Comment on above: Performed By: #### 0 0121, 19230, 69386, 48065 #### [facility] [address] [place] [id number], [facility] [[email or web address]] ALKALINE PHOSPH 130 IU/L High 34-104 The [facility] Comment on above: Performed By: #### 0 0121, 52386, 73511, 59869 #### [facility] [address] [place] [address], [facility] [[email or web address]] ALT [Catalytic activity/Vol] 18 U/L Normal 7-52 [facility] Comment on above: Performed By: #### 0 0121, 68882, 87329, 62129 #### [facility] [address] [place] [address], [facility] [[email or web address]] AST [Catalytic activity/Vol] 19 U/L Normal 13-39 [facility] Comment on above: Performed By: #### 0 0121, 46860, 12035, 72894 #### [facility] [address] [place] [address], [facility] [[email or web address]] Bilirubin [Mass/Vol] 0.4 mg/dL Normal 0.3-1.0 [facility] Comment on above: Performed By: #### 0 0121, 04340, 97561, 94050 #### [facility] [address] [place] [address], [place] Calcium [Mass/Vol] 9.0 mg/dL Normal 8.6-10.3 [facility] Comment on above: Performed By: #### 0 0121, 78052, 99595, 02917 #### [facility] [address] [place] [address], [place] Chloride [Moles/Vol] 103 mmol/L Normal 98-107 [facility] Comment on above: Performed By: #### 0 0121, 38650, 66425, 35967 #### [facility] [address] [place] [address], [place] CO2 [Moles/Vol] 28 mmol/L Normal 21-31 [facility] Comment on above: Performed By: #### 0 0121, 55300, 14324, 05831 #### [facility] [address] [place] [address], [place] Creatinine [Mass/Vol] 0.77 mg/dL Normal 0.70-1.30 [facility] Comment on above: Performed By: #### 0 0121, 34232, 40034, 20464 #### [facility] [address] [place] [address], [place] GFR/1.73 sq M.predicted among blacks MDRD (S/P/Bld) [Vol rate/Area] mL/min/{1.73_m2} Normal >60 [facility] Comment on above: Performed By: #### 0 0121, 32702, 25291, 17226 #### [facility] [address] [place] [address], [place] GFR/1.73 sq M.predicted among non-blacks MDRD (S/P/Bld) [Vol rate/Area] mL/min/{1.73_m2} Normal >60 [facility] Comment on above: Performed By: #### 0 0121, 24494, 91796, 23435 #### [facility] [address] [place] [address], [place] Glucose [Mass/Vol] 88 mg/dL Normal 70-100 [facility] Comment on above: Performed By: #### 0 0121, 10429, 61882, 22131 #### [facility] [address] [place] [address], [place] Potassium [Moles/Vol] 4.9 mmol/L Normal 3.5-5.1 [facility] Comment on above: Performed By: #### 0 0121, 14360, 73472, 18693 #### [facility] [address] [facility] [place] [address], [facility] [[email or web address]] Protein [Mass/Vol] 7.3 g/dL Normal 6.0-8.3 [facility] Comment on above: Performed By: #### 0 0121, 04179, 65539, 75280 #### [facility] [address] [facility] [place] [address], [facility] [[email or web address]] Sodium [Moles/Vol] 138 mmol/L Normal 136-145 [facility] Comment on above: Performed By: #### 0 0121, 04539, 19000, 59793 #### [facility] [address] [facility] [place] [address], [facility] [[email or web address]] Urea nitrogen [Mass/Vol] 15 mg/dL Normal 7-25 [facility] Comment on above: Performed By: #### 0 0121, 74133, 69799, 07724 #### [facility] [address] [place], [place] [id number] [place] [address] CTA HEADon 11-20-2020 CTA HEAD [facility] Department of Radiology [address] [place] [id number] Patient Name: NAZARIO CORTES : 1955 Sex: M Age: Race: White Pt. Location: [facility] Patient Status: E Ordered Date: 11/20/2020 [...] stenosis of the major vessels of the [place]. origin of bilateral posterior cerebral arteries. IMPRESSION: Normal CTA of the brain. All CT scans at this facility use dose modulation, iterative reconstruction, and/or weight based dosing when appropriate to reduce radiation dose to as low as reasonably achievable. Electronically signed: Dhaval Ghotra. Transcribed by: [email or web address], User Resident: Electronically Signed by: DHAVAL GHOTRA @ 11/20/2020 12:58 PM Normal [facility] Comment on above: Order Comment: Bleed CTA NECKon 11-20-2020 CTA NECK [facility] Department of Radiology [address] [place] [id number] Patient Name: NAZARIO CORTES : 1955 Sex: M Age: Race: White Pt. Location: [facility] Patient Status: E Ordered Date: 11/20/2020 [...] viewed on a separate workstation. The [place] Symptomatic Carotid Endarterectomy Trial (NASCET) method for [...] achievable Electronically signed: Dhaval Ghotra. Transcribed by: [email or web address], User Resident: Electronically Signed by: DHAVAL GHOTRA @ 11/20/2020 12:57 PM Normal [facility] DIRECT BILIon 11-20-2020 Bilirubin.direct [Mass/Vol] 0.1 mg/dL Normal 0.0-0.2 [facility] Comment on above: Order Comment: Liver Battery conflicts with Comprehensive Metabolic Panel. Liver Battery canceled and Direct Bilirubin added. Performed By: #### 0 0121, 94023, 82896, 67202 #### [facility] [address] LIPASE BLOODon 11-20-2020 LIPASE 27 Units/L Normal 11-82 [facility] Comment on above: Performed By: #### 0 0121, 40264, 01619, 59370 #### [address] POC SARS COV2 ANTIGEN NEGATI VEon 11-20-2020 POC SARS COV2 ANTIGEN N Negative Normal NEGATIVE [facility] Comment on above: Result Comment: Test performed on [employer] for rapid detection of SARS-CoV-2. Negative [...] management. Performed By: #### 3 1919 #### [address] PORTABLE CHEST 1 VIEWon 10-23 PORTABLE CHEST 1 VIEW [facility] Department of Radiology [address] [place] [id number] Patient Name: NAZARIO CORTES : 1955 Sex: M Age: Race: White Pt. Location: [facility] Patient Status: E Ordered Date: 11/20/2020 [...] reports Electronically signed: Dhaval Ghotra. Transcribed by: [email or web address], User Resident: JESSENIA ALFORD Electronically Signed by: DHAVAL GHOTRA @ 11/20/2020 12:32 PM I personally read this/these film(s) with this resident Normal [facility] Comment on above: Order Comment: evalu ate for Pneumonia PROTHROMBIN TIMEon 0 INR Coag (PPP) [Relative time] 0.95 {INR} Normal 0.91-1.16 [facility] Comment on above: Result Comment: ACCC [...] CHEST 1995;108:231S-246S. Performed By: #### 5 6101, 66214 ####[facility] [address] PT Coag (PPP) [Time] 12.7 s Normal 12.3-14.8 [facility] Comment on above: Result Comment: ALL RESULTS MUST BE INTERPRETED WITH RESPECT TO BLOOD DRAWING ARTIFACT OR DILUTION ERROR OF ANTICOAGULANT AT THE TIME OF SAMPLING. Performed By: #### 5 [id number], [id number] ####[facility] TROPONIN-Ion 11-20-2020 Troponin I.cardiac [Mass/Vol] 0.00 ng/mL Normal 0.00-0.04 [facility] Comment on above: Order Comment: No: D o not add to previous draw Result Comment: REFE RENCE RANGES: 0.00 - 0.14 ng/ml NEGATIVE 0.15 - 0.25 ng/ml INDETERMINATE > 0.25 ng/ml INDICATIVE OF AN M.I. Performed By: #### 3 [id number] #### [facility] [address] [place] [address], [facility] [[email or web address]] Troponin I.cardiac [Mass/Vol] 0.00 ng/mL Normal 0.00-0.04 [facility] Comment on above: Result Comment: REFE RENCE RANGES: 0.00 - 0.14 ng/ml NEGATIVE 0.15 - 0.25 ng/ml INDETERMINATE > 0.25 ng/ml INDICATIVE OF AN M.I. Performed By: #### 0 0121, [id number], 10561, [id number] #### [place] [address] [address] Vital Signs Date Time Vital Sign Value Performing Clinician Facility 12-19-2024 13:35-0500 Body height 185.4 cm Amrik Pérez MD Work Phone: [facility] 12-19-2024 13:35-0500 Body mass index (BMI) [Ratio] 40.37 kg/m2 Amrik Pérez MD Work Phone: [facility] 12-19-2024 13:35-0500 Body weight 138.8 kg Amrik Pérez MD Work Phone: [facility] 12-19-2024 13:35-0500 Diastolic blood pressure 64 mm[Hg] Amrik Pérez MD Work Phone: [facility] 12-19-2024 13:35-0500 Heart rate 80 /min Amrik Pérez MD Work Phone: [facility] 12-19-2024 13:35-0500 Systolic blood pressure 112 mm[Hg] Amrik Pérez MD Work Phone: [facility] 11-22-2024 15:42-0500 Body height 185.4 cm Jignesh Gonsalez MD Work Phone: [facility] 11-22-2024 15:42-0500 Body mass index (BMI) [Ratio] 41.16 kg/m2 Jignesh Gonsalez MD Work Phone: [facility] 11-22-2024 15:42-0500 Body temperature 97.5 [degF] Jignesh Gonsalez MD Work Phone: [facility] 11-22-2024 15:42-0500 Body weight 141.52 kg Jignesh Gonsalez MD Work Phone: [facility] 11-22-2024 15:42-0500 Diastolic blood pressure 66 mm[Hg] Jignesh Gonsalez MD Work Phone: [facility] 11-22-2024 15:42-0500 Heart rate 33 /min Jignesh Gonsalez MD Work Phone: [facility] 11-22-2024 15:42-0500 Respiratory rate 20 /min Jignesh Gonsalez MD Work Phone: [facility] 11-22-2024 15:42-0500 SaO2% (BldA) [Mass fraction] 89 % Jignesh Gonsalez MD Work Phone: [facility] 11-22-2024 15:42-0500 Systolic blood pressure 148 mm[Hg] Jignesh Gonsalez MD Work Phone: [facility] 10-25-2024 15:32-0500 Body height 185.4 cm Jignesh Gonsalez MD Work Phone: [facility] 10-25-2024 15:32-0500 Body mass index (BMI) [Ratio] 40.9 kg/m2 Jignesh Gonsalez MD Work Phone: [facility] 10-25-2024 15:32-0500 Body temperature 97.5 [degF] Jignesh Gonsalez MD Work Phone: [facility] 10-25-2024 15:32-0500 Body weight 140.62 kg Jignesh Gonsalez MD Work Phone: [facility] 10-25-2024 15:32-0500 Diastolic blood pressure 70 mm[Hg] Jignesh Gonsalez MD Work Phone: [facility] 10-25-2024 15:32-0500 Heart rate 87 /min Jignesh Gonsalez MD Work Phone: [facility] 10-25-2024 15:32-0500 Respiratory rate 22 /min Jignesh Gonsalez MD Work Phone: [facility] 10-25-2024 15:32-0500 SaO2% (BldA) [Mass fraction] 90 % Jignesh Gonsalez MD Work Phone: [facility] 10-25-2024 15:32-0500 Systolic blood pressure 150 mm[Hg] Jignesh Gonsalez MD Work Phone: [facility] 09-07-2024 14:54-0400 Body height 185.42 cm MD Jignesh Gonsalez Work Phone: [facility] 09-07-2024 14:54-0400 Body mass index (BMI) [Ratio] 39.2 kg/m2 MD Jignesh Gonsalez Work Phone: [facility] 09-07-2024 14:54-0400 Body temperature 96.8 [degF] MD Jignesh Gonsalez Work Phone: [facility] 09-07-2024 14:54-0400 Body weight 134.94 kg MD Jignesh Gonsalez Work Phone: [facility] 09-07-2024 14:54-0400 Diastolic blood pressure 78 mm[Hg] MD Jignesh Gonsalez Work Phone: [facility] 09-07-2024 14:54-0400 Heart rate 93 /min MD Jignesh Gosnalez Work Phone: [facility] 09-07-2024 14:54-0400 Respiratory rate 20 /min MD Jignseh Gonsalez Work Phone: [facility] 09-07-2024 14:54-0400 SaO2% (BldA) [Mass fraction] 94 % MD Jignesh Gonsalez Work Phone: [facility] 09-07-2024 14:54-0400 Systolic blood pressure 119 mm[Hg] MD Jignesh Gonsalez Work Phone: [facility] 08-16-2024 10:34-0400 Body height 185.42 cm [facility] 08-16-2024 10:34-0400 Body mass index (BMI) [Ratio] 39 kg/m2 [facility] 08-16-2024 10:34-0400 Body temperature 96.8 [degF] [facility] 08-16-2024 10:34-0400 Body weight 134.26 kg [facility] 09-26-2024 10:34-0400 Diastolic blood pressure 77 mm[Hg] [facility] 08-16-2024 10:34-0400 Heart rate 73 /min [facility] 08-16-2024 10:34-0400 Respiratory rate 18 /min [facility] 08-16-2024 10:34-0400 SaO2% (BldA) [Mass fraction] 96 % [facility] 08-16-2024 10:34-0400 Systolic blood pressure 125 mm[Hg] [facility] 08-09-2024 13:10-0400 Body height 185.42 cm MD Jignesh Gonsalez Work Phone: [facility] 08-09-2024 13:10-0400 Body mass index (BMI) [Ratio] 39 kg/m2 MD Jignseh Gonsalez Work Phone: [facility] 08-09-2024 13:10-0400 Body temperature 98.5 [degF] MD Jignesh Gonsalez Work Phone: [facility] 08-09-2024 13:10-0400 Body weight 134.26 kg MD Jignesh Gonsalez Work Phone: [facility] 08-09-2024 13:10-0400 Diastolic blood pressure 64 mm[Hg] MD Jignesh Gonsalez Work Phone: [facility] 08-09-2024 13:10-0400 Heart rate 75 /min MD Jignesh Gonsalez Work Phone: [facility] 08-09-2024 13:10-0400 Respiratory rate 18 /min MD Jignesh Gonsalez Work Phone: [facility] 08-09-2024 13:10-0400 SaO2% (BldA) [Mass fraction] 93 % MD Jignesh Gonsalez Work Phone: [facility] 08-09-2024 13:10-0400 Systolic blood pressure 98 mm[Hg] MD Jignesh Gonsalez Work Phone: [facility] 05-15-2024 15:36-0400 Body height 185.42 cm MD Jignesh Gonsalez Work Phone: [facility] 05-15-2024 15:36-0400 Body mass index (BMI) [Ratio] 36.9 kg/m2 MD Jignesh Gonsalez Work Phone: [facility] 05-15-2024 15:36-0400 Body temperature 97.5 [degF] MD Jignesh Gonsalez Work Phone: [facility] 05-15-2024 15:36-0400 Body weight 127 kg MD Jignesh Gonsalez Work Phone: [facility] 05-15-2024 15:36-0400 Diastolic blood pressure 74 mm[Hg] MD Jignesh Gonsalez Work Phone: [facility] 05-15-2024 15:36-0400 Heart rate 81 /min MD Jignesh Gonsalez Work Phone: [facility] 05-15-2024 15:36-0400 Respiratory rate 18 /min MD Jignesh Gonsalez Work Phone: [facility] 05-15-2024 15:36-0400 SaO2% (BldA) [Mass fraction] 93 % MD Jignesh Gonsalez Work Phone: [facility] 05-15-2024 15:36-0400 Systolic blood pressure 119 mm[Hg] MD Jignesh Gonsalez Work Phone: [facility] 04-23-2024 13:06-0400 Body height 185.42 cm [facility] 04-23-2024 13:06-0400 Body mass index (BMI) [Ratio] 36.9 kg/m2 [facility] 04-23-2024 13:06-0400 Body temperature 97.3 [degF] [facility] 04-23-2024 13:06-0400 Body weight 127 kg [facility] 04-23-2024 13:06-0400 Diastolic blood pressure 56 mm[Hg] [facility] 04-23-2024 13:06-0400 Heart rate 80 /min [facility] 04-23-2024 13:06-0400 Respiratory rate 18 /min [facility] 04-23-2024 13:06-0400 SaO2% (BldA) [Mass fraction] 97 % [facility] 04-23-2024 13:06-0400 Systolic blood pressure 106 mm[Hg] [facility] 07-05-2023 10:00-0400 Body height 185.42 cm Luiz Riggs Other [facility] [employer] Other 07-05-2023 10:00-0400 Body mass index (BMI) [Ratio] 37.86 kg/m2 Luiz Riggs Other [employer] Other 07-05-2023 10:00-0400 Body weight 130.18 kg Luiz Riggs Other [employer] Other 07-05-2023 10:00-0400 Diastolic blood pressure 76 mm[Hg] Luiz Riggs Other [employer] Other 07-05-2023 10:00-0400 Systolic blood pressure 126 mm[Hg] Luiz Riggs Other [employer] Other 04-06-2022 17:40-0400 Body height 185.42 cm Neelam Morris Other [employer] Other 04-06-2022 17:40-0400 Body mass index (BMI) [Ratio] 36.15 kg/m2 Neelam Morris Other [employer] Other 04-06-2022 17:40-0400 Body temperature 98 [degF] Neelam Morris Other [employer] Other 04-06-2022 17:40-0400 Body weight 124.29 kg Neelam Morris Other [employer] Other 04-06-2022 17:40-0400 Diastolic blood pressure 69 mm[Hg] Neelam Morris Other [employer] Other 04-06-2022 17:40-0400 Respiratory rate 18 /min Neelam Morris Other [employer] Other 04-06-2022 17:40-0400 SaO2% (BldA) [Mass fraction] 95 % Neelam Morris Other [employer] Other 04-06-2022 17:40-0400 Systolic blood pressure 123 mm[Hg] Neelam Morris Other [employer] Other 12-28-2021 17:00-0500 Body height 185.42 cm Alex Elspiper Other [employer] Other 12-28-2021 17:00-0500 Body mass index (BMI) [Ratio] 37.47 kg/m2 Alex Elspiper Other [employer] Other 12-28-2021 17:00-0500 Body weight 128.82 kg Alex Elspiper Other [employer] Other Encounters Encounter Date Encounter Type Care Provider Facility Start: 12-19-2024 End: 12-19-2024 Roxy Pérez MD Work Phone: [facility] Start: 12-19-2024 End: 12-19-2024 Roxy Pérez MD Work Phone: [facility] Start: 12-19-2024 End: 12-19-2024 Office outpatient new 30 minutes Amrik Pérez MD Work Phone: [facility] Comment on above: Deviated nasal septu m Start: 12-19-2024 End: 12-19-2024 ambulatory AMRIK PÉREZ Not Available Start: 11-28-2024 End: 11-28-2024 Refill Jignesh Gonsalez MD Work Phone: [facility] Comment on above: Seizure disorder (CM S/HCC) Start: 11-27-2024 End: 11-28-2024 Orders Only Jignesh Gonsalez MD Work Phone: [facility] Comment on above: Deviated nasal septu m (Primary Dx); Chronic rhinosinusitis Start: 11-27-2024 End: 11-27-2024 Patient encounter procedure Jose M Celestine HUDSON Work Phone: [facility] Comment on above: Screening for malign ant neoplasm of colon (Primary Dx) Start: 11-22-2024 End: 11-22-2024 Postop follow up visit related to original px Jignesh Gonsalez MD Work Phone: [facility] Comment on above: Medicare annual well ness visit, subsequent (Primary Dx); Dyslipidemia (CMS/HCC); Encounter for long-term current use of medication; [...] [facility] Start: 11-22-2024 End: 11-22-2024 Bamboo flowsheet Jignesh [...] flowsheet Chari Vela CCC-A Work Phone: [facility] Start: [...] Start: 10-17-2024 End: 10-17-2024 ambulatory Yancy Lawson Facility:[facility] Start: 10-11-2024 End: 10-11-2024 Refill Jignesh Gonsalez MD Work Phone: [facility] Comment on above: Degenerative lumbar spinal stenosis Start: 09-25-2024 End: 09-25-2024 Refill Jignesh Gonsalez MD Work Phone: [facility] Comment on above: Seizure disorder (CM S/HCC) Start: 09-07-2024 End: 09-07-2024 ambulatory MD Jignesh Gonsalez Work Phone: [facility] Work Phone: Start: 09-07-2024 End: 09-07-2024 Patient encounter procedure MD Jignesh Gonsalez Work Phone: [facility] [place] Work Phone: Start: 08-16-2024 End: 08-16-[address] [facility] Work Phone: Start: 08-16-2024 End: 08-16-2024 Patient encounter procedure [facility] [place] Work Phone: Start: 08-09-2024 End: 08-09-2024 ambulatory MD Jignesh Gonsalez Work Phone: [facility] Work Phone: Start: 08-09-2024 End: 08-09-2024 Patient encounter procedure MD Jignesh Gonsalez Work Phone: [facility] [place] Work Phone: Start: 08-08-2024 ambulatory [facility] Start: 07-26-2024 End: 07-26-2024 ambulatory [facility] Start: 07-18-2024 End: 07-18-2024 Timo Gonsalez MD Work Phone: [facility] Comment on above: Seizure disorder (CM S/HCC) Start: 06-13-2024 End: 06-13-2024 ambulatory IMELDA THOMPSON Not Available Start: 05-21-2024 End: 05-21-2024 ambulatory JIGNESH GONSALEZ Not Available Start: 05-16-2024 End: 05-16-2024 ambulatory IMELDA THOMPSON Not Available Start: 05-15-2024 End: 05-15-2024 ambulatory MD Jignesh Gonsalez Work Phone: [facility] Work Phone: Start: 05-15-2024 End: 05-15-2024 Patient encounter procedure MD Jignesh Gonsalez Work Phone: [facility] [place] Work Phone: Start: 04-23-2024 End: 04-23-[address] [facility] Work Phone: Start: 04-23-2024 End: 04-23-2024 Patient encounter procedure [facility] [place] Work Phone: Start: 04-17-2024 End: 04-17-2024 ambulatory CORNELIO COTTER Not Available Start: 03-07-2024 End: 03-07-2024 ambulatory AMRIKANA NOONANJonatan Not Available Start: 02-21-2024 End: 02-21-2024 ambulatory JIGNESH GONSALEZ Not Available Start: 01-11-2024 End: 01-11-2024 ambulatory SHAIKH TIESHA Not Available Start: 01-05-2024 End: 01-05-2024 ambulatory [facility] Start: 01-05-2024 End: 01-05-2024 ambulatory [facility] Start: 02-09-2024 ambulatory Chris Archuleta ty:WYATT Fall Start: 12-21-2023 Telephone encounter Epifanio dennison MD Work Phone: [facility] Start: 12-20-2023 ambulatory [facility] Start: 12-19-2023 End: 12-19-2023 ambulatory [facility] Start: 07-18-2023 End: 07-19-2023 ambulatory JIGNESH GONSALEZ Facility:[facility] Start: 07-18-2023 End: 07-18-2023 Patient encounter procedure Chris CAMARILLO [facility] Start: 07-05-2023 Office outpatient ne w 30 minutes Luiz Riggs [facility] Start: 07-05-2023 End: 07-05-2023 ambulatory MD Jignesh Gonsalez Work Phone: [facility] Work Phone: Start: 07-05-2023 End: 07-05-2023 Patient encounter procedure MD Jignesh Gonsalez Work Phone: [facility] Work Phone: Start: 01-07-2023 End: [...] 04-06-2022 End: 04-06-2022 ambulatory Neelam Morris Other [employer] [facility] [employer] Other Start: 04-06-2022 Office outpatient vi sit 15 minutes Neelam Morris [facility] [place] Start: 12-28-2021 End: 12-28-2021 ambulatory Alex Bonilla Other [facility] [employer] Other Start: 12-28-2021 Office outpatient ne w 30 minutes Alex Bonilla [facility] Start: 11-20-2020 End: 11-20-2020 Emergency department patient visit KARINA PIERRE Facility:[facility] Procedures Date Procedure Procedure Detail Performing Clinician Start: 12-11-2024 Colonoscopy Amrik quezada MD Work Phone: Start: 11-27-2024 Ct maxillofacial w/o contrast material [...] Comment on above: Performed By: #### P [facility] #### [facility] [address] [place] [address] Dr. Jeimy Tenorio Extraction of cataract Patri luis antonio CAMARILLO Procedure on foot Chris MERINO Plan of Treatment Date Care Activity Detail Author Start: 12-11-2034 Screening for malign ant neoplasm of colon [facility] Start: 11-22-2025 Medicare Annual Well ness (AWV) Medicare Annual Wellness (AWV) [facility] Start: 02-20-2025 End: 02-20-2025 Patient encounter procedure 02/20/2025 1:30 PM EDT Office Visit [facility] [address] [place] [address] Jignesh Gonsalez MD [address] [place] [address] [facility] Start: 12-19-2024 End: 12-19-2024 Patient encounter procedure 12/19/2024 1:40 PM EST Office Visit [facility] [address] [place] [id number] Amrik Pérez MD [address] [place] [address] Deviated nasal septum; Chronic rhinosinusitis [facility] Comment on above: Deviated nasal septu m; Chronic rhinosinusitis Start: 11-26-2024 End: 11-26-2024 Patient encounter procedure 11/26/2024 2:00 PM EST Office Visit [facility] [address] [place] [id number] Jose M Rea DO [address] [place] [address] [facility] Start: 11-22-2024 End: 11-22-2024 Patient encounter procedure [facility] Comment on above: Arrived Start: 11-22-2024 End: 11-22-2025 Basic metabolic 1998 panel - Serum or Plasma Basic metabolic panel Lab Routine Encounter for long-term current use of medication Expected: 11/22/2024 (Approximate), Expires: 11/22/2025 [facility] Work Phone: Comment on above: Expected: 11/22/2024 (Approximate), Expires: 11/22/2025 Start: 11-22-2024 End: 11-22-2025 CBC W Auto Differential panel - Blood CBC and differential Lab Routine Encounter for long-term current use of medication Expected: 11/22/2024 (Approximate), Expires: 11/22/2025 [facility] Comment on above: Expected: 11/22/2024 (Approximate), Expires: 11/22/2025 Start: 11-22-2024 End: 11-22-2025 Hepatic function 2000 panel - Serum or Plasma Hepatic function panel Lab Routine Encounter for long-term current use of medication Expected: 11/22/2024 (Approximate), Expires: 11/22/2025 [facility] Comment on above: Expected: 11/22/2024 (Approximate), Expires: 11/22/2025 Start: 11-22-2024 End: 11-22-2025 Lipid 1996 panel - Serum or Plasma Lipid panel Lab Routine Dyslipidemia ([facility]) Expected: 11/22/2024 (Approximate), Expires: 11/22/2025 [facility] Comment on above: Expected: 11/22/2024 (Approximate), Expires: 11/22/2025 Start: 11-22-2024 End: 11-22-2025 Prostate specific Ag [Mass/volume] in Serum or Plasma PSA Lab Routine Screening PSA (prostate specific antigen) Expected: 11/22/2024 (Approximate), Expires: 11/22/2025 [facility] Comment on above: Expected: 11/22/2024 (Approximate), Expires: 11/22/2025 Start: 11-22-2024 End: 11-22-2025 Thyrotropin [Units/volume] in Serum or Plasma TSH Lab Routine Class 3 severe obesity due to excess calories with serious comorbidity and body mass index (BMI) of 40.0 to 44.9 in adult ([facility]/HCC) Expected: 11/22/2024 (Approximate), Expires: 11/22/2025 [facility] Comment on above: Expected: 11/22/2024 (Approximate), Expires: 11/22/2025 Start: 10-25-2024 End: 10-25-2024 Patient encounter procedure [facility] Comment on above: Arrived Start: 10-25-2024 End: 10-25-2025 CT Maxillofacial region WO and W contrast IV CT SINUS WO IV CONTRAST Imaging Routine Chronic rhinosinusitis Expected: 10/25/2024, Expires: 10/25/2025 [facility] Work Phone: Comment on above: Expected: 10/25/2024 , Expires: 10/25/2025 Start: 09-27-2024 End: 09-27-2024 Patient encounter procedure 09/27/2024 3:30 PM EST Office Visit [facility] [address] [place] [phone] Jignesh Gonsalez MD [address] [place] [phone] [facility] Start: 07-22-2024 Influenza vaccination Influenza Vacc ine (#1) [facility] Start: 12-30-2023 COVID-19 Vaccine ( season) COVID-19 Vaccine ( season) [facility] Start: 08-16-2023 Adult BMI Screening Adult BMI Screen ing [facility] Start: 08-16-2023 Fall Risk Screening Fall Risk Screen ing [facility] Start: 08-16-2023 Tobacco Screening Tobacco Screening [facility] Start: 08-05-2021 Pneumococcal Vaccine : 65+ Years (2 of 2 - PCV) Pneumococcal Vaccine: 65+ Years (2 of 2 - PCV) [facility] Start: 1974 Administration of varicella zoster vaccine Zoster (Shingles) Vaccine (1 of 2) [facility] Start: 1974 DTaP,Tdap and Td Vaccines (1 - Tdap) DTaP,Tdap and Td Vaccines (1 - Tdap) [facility] Start: 1967 Depression Screening Depression Scre ening [facility] Start: 1955 Medicare Annual Well ness (AWV) Medicare Annual Wellness (AWV) [facility] Start: 1955 Medicare Annual Well ness Visit Medicare Annual Wellness Visit [facility] Start: 1955 Screening for malign ant neoplasm of colon [facility] MR Knee - right WO contrast MR knee right wo IV contrast Imaging Routine Chronic pain of right knee Internal derangement of right knee Ordered: 10/25/2024 [facility] Comment on above: Ordered: 10/25/2024 XR Knee - right 4 Views [facility] Immunizations Immunization Date Immunization Notes Care Provider Fa jovon 10-11-2024 influenza virus vacc ine, unspecified formulation Jignesh Gonsalez MD Work Phone: [facility] 11-04-2023 Covid-19, Mrna, Lnp- s, Bivalent, Pf, 30mcg/0.3 ml Epifanio Kaufman MD Work Phone: [facility] 11-04-2023 Influenza, Seasonal, Quadrivalent, Adjuvanted Jignesh Gonsalez MD Work Phone: [facility] 11-04-2023 influenza virus vacc ine, unspecified formulation Jignesh Gonsalez MD Work Phone: [facility] 08-21-2022 influenza virus vacc ine, unspecified formulation Epifanio Kaufman MD Work Phone: [facility] 08-21-2022 Influenza, High-dose Seasonal, Quadrivalent, Preservative Free Jignesh Gonsalez MD Work Phone: [facility] 08-21-2022 SARS-COV-2 (COVID-19 ) Vaccine, Unspecified Epifanio Kaufman MD Work Phone: [facility] 08-06-2021 Influenza Vaccine, Quadrivalent, Adjuvanted Jignesh Gonsalez MD Work Phone: [facility] 02-25-2021 COVID-19, mRNA, LNP- S, PF, 100mcg/0.5mL Dose Jignesh Gonsalez MD Work Phone: [facility] 02-12-2021 COVID-19, mRNA, LNP- S, PF, 30mcg/0.3mL Dose Epifanio Kaufman MD Work Phone: [facility] 08-05-2020 influenza, injectabl e, quadrivalent, preservative free Jignesh Gonsalez MD Work Phone: [facility] 08-05-2020 pneumococcal polysaccharide vaccine, 23 valent Jignesh Gonsalez MD Work Phone: [facility] 09-03-2019 influenza, seasonal, injectable Jignesh Gonsalez MD Work Phone: [facility] 08-24-2019 influenza, injectabl e, quadrivalent, preservative free Jignesh Gonsalez MD Work Phone: [facility] Payers Date Payer Category Payer Self-pay [id number] 2023 Medicaid [id number] 2023 Medicaid [id number] 2022 Medicare [id number] 2021 Medicare [id number] 2021 Unknown [id number] 2021 Medicare [id number] 2020 Medicare [id number] 2019 Unknown [id number] 1959 Medicare [id number] 2. [id number] 1955 Unknown [id number] 2.16.8 40.1.565659.3.579.2.647 1955 Unknown [id number] 2.16.84 0.1.240660.3.579.2.593 1955 Unknown [id number] 2.16.84 0.1.394250.3.579.2.593 1955 Unknown [id number] 2.16.84 0.1.672987.3.579.2.593 1955 Unknown [id number] 2.16.84 0.1.638993.3.579.2.593 1955 Unknown [id number] 2.16.84 0.1.077876.3.579.2.593 1955 Unknown [id number] 2.16.84 0.1.210436.3.579.2.593 1955 Unknown [id number] 2.16.84 0.1.060451.3.579.2.593 1955 Unknown [id number] 2.16.8 40.1.051644.3.579.2.1286 1955 Unknown [id number] 2.16.8 40.1.530903.3.579.2.727 1955 Unknown [id number] 2.16.8 40.1.257987.3.579.2.727 1955 Unknown [id number] 2.16.84 0.1.278690.3.579.2.1259 1955 Unknown [id number] 2.16.84 0.1.947379.3.579.2.1259 1955 Unknown [id number] 2.16.84 0.1.621378.3.579.2.1259 1955 Unknown [id number] 2.16.84 0.1.730396.3.579.2.1259 1955 Unknown [id number] 2.16.84 0.1.894988.3.579.2.1259 1955 Unknown [id number] 2.16.84 0.1.661117.3.579.2.1259 1955 Unknown [id number] 2.16.84 0.1.833864.3.579.2.1259 1955 Unknown [id number] 2.16.84 0.1.402516.3.579.2.1259 1955 Unknown [id number] 2.16.84 0.1.915494.3.579.2.1259 1955 Unknown [id number] 2.16.84 0.1.253795.3.579.2.1259 1955 Unknown [id number] 2.16.84 0.1.743742.3.579.2.1259 1955 Unknown [id number] 2.16.84 0.1.746441.3.579.2.1259 1955 Unknown [id number] 2.16.84 0.1.471386.3.579.2.1259 Medicare [id number] Unknown [id number] 2.16.8 40.1.009622.3.579.2.531 Unknown [id number] 2.16.8 40.1.628938.3.579.2.531 Unknown [id number] 2.16.8 40.1.922214.3.579.2.531 Social History Date Type Detail Facility Start: 01-01-2021 End: 12-14-2023 Sex Assigned At [facility] Start: 1955 Sex Assigned At Male [facility] Tobacco smoking status No Smoking Status Entered [facility] [employer] Start: 04-23-2024 Tobacco smoking status [facility] Never smoked tobacco (finding) [facility] Start: 01-29-2020 End: 01-11-2024 Tobacco smoking status MIIS Ex-smoker [facility] Start: 11-21-1971 End: 04-18-1997 History of tobacco use Current smoker [facility] Start: 11-21-1971 End: 04-18-1997 History of tobacco use Cigarette Smoker [facility] Start: 01-29-2020 End: 01-11-2024 Tobacco use and exposure Smokeless tobacco non-user [facility] Start: 05-21-2024 End: 12-19-2024 Alcoholic beverage intake Lifetime non-drinker (finding) [facility] Start: 01-01-2021 End: 12-14-2023 History of Social function [facility] Within the last year , have you been afraid of your partner or ex-partner? No [facility] Are you now , , , , never or living with a partner? [facility] How often to you hav e a drink containing alcohol? Never [facility] How many standard drinks containing alcohol do you have on a typical day? Patient does not drink [facility] How hard is it for [...] to buy more. Never true [facility] Start: 1955 Sex assigned at Not on file [facility] Start: 08-16-2022 Alcohol intake Ex-drinker (finding) [facility] NEGATED: Highlighted rowStart: NINF History of tobacco use Passive smoker [facility] Clinical Notes 11-21-2020 to 12-19-2024 Amrik Pérez MD - 12/19/2024 1:40 PM Tor Rea DO - 11/27/2024 10:15 AM Vitor Gonsalez MD - 11/22/2024 4:23 PM Vitor Gonsalez MD - 11/22/2024 4:23 PM EST Note Date & Type Note Facility 12-19-2024 History of Presen t illness Narrative Subjective Patient ID: Nathan Cortes is a 69 y.o. male who presents for Deviated Nasal Septum Pt reports he has had right nasal obstruction for a few months. Pt started flonase 2 weeks ago. Helps a bit by lessening things up. Review of Systems All other systems reviewed and are negative. 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) 08/04/2023 Degenerative lumbar spinal stenosis 08/04/2023 Deviated nasal septum 10/26/2023 Dyslipidemia (CMS/HCC) 10/26/2023 Major depressive disorder, recurrent episode, mild (HCC) (CMS/HCC) 10/26/2023 Malignant neoplasm of urinary bladder (CMS/HCC) 10/26/2023 Seizure disorder ([facility]) 10/26/2023 Coronary arteriosclerosis ([facility]) 07/21/2020 Class 3 severe obesity due to excess calories with serious comorbidity and body mass index (BMI) of 40.0 to 44.9 in adult ([facility]) 01/12/2021 Encounter for long-term current use of medication 11/29/2023 Screening PSA (prostate specific antigen) 11/29/2023 Chest pain due to CAD ([facility]) 01/11/2024 KAROL (obstructive sleep apnea) 02/21/2024 Bilateral leg edema 02/21/2024 Chronic rhinosinusitis 10/25/2024 Internal derangement of right knee 10/25/2024 Chronic pain of right knee 10/25/2024 Medicare annual wellness visit, subsequent 11/22/2024 Resolved Ambulatory Problems Diagnosis Date Noted Syncope and collapse 10/26/2023 Hospital discharge follow-up 01/11/2024 Closed fracture of multiple ribs of right side with routine healing 02/21/2024 Lumbar spondylosis 05/21/2024 Past Medical History: Diagnosis Date Cataracts, bilateral 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[facility]) Dizziness 1997 DNS (deviated nasal septum) Fracture of nasal bones 2023 History of malignant germ cell neoplasm of mediastinum HL (hearing loss) 1998 Malignant neoplasm of urinary bladder, unspecified site ([facility]) Obesity 1998 Right foot pain Seizures ([facility]) Sleep apnea 1999 Stroke ([facility]) 2009 Syncope, unspecified syncope type Tinnitus 1998 Past Surgical History: Procedure Laterality Date BIOPSY Right 1997 chest CATARACT EXTRACTION Bilateral CHOLECYSTECTOMY CT ANGIO HEAD 11/20/[address] ANGIOGRAM NECK 11/20/2020 CT ANGIOGRAM NECK FOOT SURGERY Right 2014 x2 Achilles tendon SHOULDER SURGERY Left 1984 TUMOR EXCISION Allergies Allergen Reactions Oxycodone Angioedema and Unknown Gabapentin Unknown Phenytoin Unknown Current Outpatient Medications on File Prior to Visit Medication Sig Dispense Refill aspirin 81 MG EC tablet Take 1 tablet by mouth in the morning. atorvastatin (Lipitor) 10 MG tablet Take 1 tablet (10 mg) by mouth at bedtime 100 tablet 3 citalopram (CeleXA) 40 MG tablet Take 1 tablet (40 mg) by mouth in the morning. 30 tablet 5 fluticasone (Flonase) 50 MCG/ACT nasal spray Administer 2 sprays into each nostril Daily Shake gently. Before first use, prime pump. After use, clean tip and replace cap. 16 g 2 furosemide (Lasix) 40 MG tablet TAKE 1 TABLET BY MOUTH DAILY NEEDED 30 tablet 3 meclizine (Antivert) 25 MG tablet Take 1 tablet (25 mg) by mouth in the morning and 1 tablet (25 mg) at noon and 1 tablet (25 mg) in the evening and 1 tablet (25 mg) before bedtime. 30 tablet 3 methocarbamol (Robaxin) 750 MG tablet TAKE 1 TABLET BY MOUTH THREE TIMES DAILY NEEDED MUSCLE SPASM 42 tablet 0 Multiple Vitamins-Minerals (men's 50+ multivitamin w/min) tablet Take 1 tablet by mouth Daily nitroglycerin (Nitrostat) 0.[address] 1 tablet (0.3 mg) under the tongue every 5 (five) minutes if needed for chest pain 30 tablet 0 PHENobarbital (Luminal) 32.4 MG tablet TAKE 2 TABLETS BY MOUTH THREE TIMES DAILY 180 tablet 5 phenytoin ER (Dilantin) 100 MG capsule Take 2 capsules (200 mg) by mouth in the morning and 2 capsules (200 mg) in the evening and 2 capsules (200 mg) before bedtime. 540 capsule 3 potassium chloride CR (K-Tab) 20 MEQ ER tablet take 1 tablet by mouth once daily if needed 30 tablet 3 [DISCONTINUED] bisacodyl (Dulcolax) 5 MG EC tablet Take 1 tablet (5 mg) by mouth in the morning and 1 tablet (5 mg) before bedtime. Do not crush, chew, or split. Take as detailed on clinic hand out for colonoscopy prep. 4 tablet 0 [DISCONTINUED] furosemide (Lasix) 40 MG tablet Take 1 tablet (40 mg) by mouth Daily as needed (take 1 tablet by mouth Daily as needed) 30 tablet 3 No current facility-administered medications on file prior to visit. Objective Last Recorded Vitals Vitals: 12/19/24 1335 BP: 112/64 Pulse: 80 ENT Physical Exam Constitutional Appearance: patient appears well-developed and well-nourished, Head and Face Appearance: head appears normal and face appears atraumatic; Ear Ear comments: Jameel ears normal Nose External Nose: nares patent bilaterally; external nose normal; Internal Nose: nasal mucosa normal; nasal septal deviation present; Nose comments: Moderate DNS to the RT Oral Cavity/Oropharynx Lips: normal; Teeth: normal; Gums: gingiva normal; Tongue: normal; Oral mucosa: normal; Hard palate: normal; Neck Neck: neck normal; neck palpation normal; Thyroid: thyroid normal; Respiratory Inspection: breathing unlabored; normal breathing rate; Auscultation: breath sounds are clear; Cardiovascular Inspection: extremities are warm and well perfused; no peripheral edema present; Auscultation: regular rate and rhythm; Assessment/Plan Diagnoses and all orders for this visit: Deviated nasal septum - Ambulatory referral to ENT Pt does have a moderate DNS, but there would not have been any sig change in the septum since he was 35 years old. Given all of pt's comorbidities, he is a poor candidate for an elective septoplasty. Recommend changing flonase to BID on the RT. documented in this encounter [facility] 11-27-2024 History of Presen t illness Narrative [...] Denies nausea or vomiting. Last colonoscopy was 2019. ASA 81mg SUBJECTIVE: MEDICATIONS: ALLERGIES Current Outpatient [...] Ashley Rea DO documented in this encounter [facility] 11-22-2024 History of Presen t illness Narrative [...] (BMI) of 40.0 to 44.9 in adult ([facility]) Weight loss indicated. Relevant Orders TSH Encounter [...] not to smoke. documented in this encounter [facility] 11-06-2024 Telephone encounter Note Spoke to Janet, Chart was audited from 05/20/23 and needed my signature on the document.. added and faxed to [facility]. [facility] Work Phone: 11-06-2024 Miscellaneous Notes Spoke to Janet, Chart was audited from 05/20/23 and needed my signature on the document.. added and faxed to [facility]. Her name is Janet that called chantel De Anda. eNetu from [facility] called and left vm that she needs a return call. She stated she has called a few times and has not received a call back regarding this patient. I tried to call back and it just kept ringing. Please call her back at [phone]. documented in this encounter [facility] 11-06-2024 Telephone encounter Note Her name is Janet that called chantel De Anda. [facility] 11-06-2024 Telephone encounter Note Neetu from [facility] called and left vm that she needs a return call. She stated she has called a few times and has not received a call back regarding this patient. I tried to call back and it just kept ringing. Please call her back at [phone]. [facility] 10-30-2024 History of Presen t illness Narrative Pt picked up supplies documented in this encounter [facility] 10-25-2024 History of Presen t illness [...] spasms. Continue PT exercises. Relevant Medications HYDROcodone-acetaminophen ([place]) 5-325 MG tablet Chronic rhinosinusitis Continued congestion [...] to General Surgery documented in this encounter [facility] 08-08-2024 Note SUBJECTIVE: Chief complaint: Back [...] about 6 or 7 years ago, in [facility] and had injections, which he states he has made his symptoms worse. Not interested in pursuing additional injections. Has had doggy daycare activities director many years ago for previous symptoms of [...] Past Medical History: Diagnosis Date Bladder cancer ([facility]) around 1997 Cholelithiasis Colon polyp Depression Dyslipidemia Hearing loss Left foot drop Peripheral neuropathy Seizure disorder ([facility]) TIA (transient ischemic attack) Past [...] needed each day., Disp: , Rfl: HYDROcodone-acetaminophen ([place]) 5-325 mg tablet, take 1 tablet by mouth four times a day if needed for severe pain for up to 7 days, Disp: , Rfl: meclizine (Antivert) 25 mg tablet, take 1 tablet by mouth four times a day if needed for dizziness, (more content not included)... [facility] 01-05-2024 Note SUBJECTIVE: Chief complaint: Back [...] about 6 or 7 years ago, in [facility] and had injections. He states he has made his symptoms worse. Has had doggy daycare activities director many years ago for previous symptoms of [...] Past Medical History: Diagnosis Date Bladder cancer ([facility]) around 1997 Cholelithiasis Colon polyp [...] by mouth in (more content not included)... [facility] 12-21-2023 Miscellaneous Notes Received faxed referral for patient to be seen for Lumbar. Called and spoke to patient, stated he has an appointment set up already at [facility] office. documented in this encounter [facility] 12-21-2023 Telephone encounter Note Received faxed referral for patient to be seen for Lumbar. Called and spoke to patient, stated he has an appointment set up already at [facility] office. [facility] 07-05-2023 Evaluation note Encounter Date Diagnosis Assessment [...] fusion of cervical spine (ICD-10 - Z98.1) [facility] 06-09-2023 Hospital Discharge instructions Follow Up Care 04/29/2023 15:31:28 With:RABIA GAN, Chris Brizuela, URL Address: [facility] [address] [place] [address] [phone] When: Unknown [facility] 11-10-2022 NotePROCEDURE: XR FOOT RT [...] Electronically authenticated by: KELL BLANDON Date: 2022-09-30 08:07[facility]10-03-2022 NotePROCEDURE: XR KNEE LT 4V or [...] authenticated by: TRINIDAD BEAVER Date: 2022-08-23 14:[address] [place], [place] [id number] NotePROCEDURE: XR KNEE LT 4V or >, [...] authenticated by: TRINIDAD BEAVER Date: 2022-08-23 14:[address] [place], [place] [id number] NotePROCEDURE: XR KNEE LT 4V or >, [...] authenticated by: TRINIDAD BEAVER Date: 2022-08-23 14:[address] [place], [place] [id number] Evaluation note* Encounter Date Diagnosis Assessment Notes Treatment Notes Treatment Clinical Notes March, Bilateral impacted cerumen (ICD-10 - H61.23) Avoid using Q-tips or earplugs. Keep your ears clean and dry. Follow-up with your family physician for any further concerns. [facility] 02-07-2022 Evaluation note* Encounter Date Diagnosis [...] contact us for further management as needed. [facility] 01-01-2021 NoteMR#: [id number] [facility] Pt. Name: Nazario Cortes Admitted: 11/20/2020 [...] history of coronary artery disease, followed by [facility] Cardiology Clinic that presents to the [facility] Emergency Department with complaints of chest [...] to follow up with his PCP and rn care manager. Total time of discharge was 45 minutes. Electronically Signed by: Trinidad Hamilton MD 11/21/2020 08:00 A Trinidad Hamilton MD .. Date Dict: 11/20/2020/06:21 P/Loiad Ashley, SENIOR SSIS DEVELOPER Date Trans: 11/21/2020 12:04 A/shabbir [id number] cc: Jose Mccloud M.D. [facility] Care [facility] [address] [place] [address]df[facility] HealthcareEvaluation + Plan note Future Appointments Appointment Date:08/19/2023 10:30:00 AM Scheduled Provider:RABIA GAN, Chris Brizuela Location:[facility] Appointment Type:URO New Patient [facility] evaluation noteNo assessment information available [facility] Work Phone: Evaluation note* Diagnosis Onset Date Resolution Status Impacted cerumen of both ears acute [facility] Work Phone: Evaluation note* Diagnosis Onset Date Resolution Status Impacted cerumen of both ears acute Left elbow pain acute [facility] Work Phone: Evaluation note* Diagnosis Onset Date Resolution Status Left elbow pain acute Impacted cerumen of both ears acute [facility] Work Phone: Evaluation note* Diagnosis Onset Date Resolution Status Impacted cerumen of both ears acute Allergic rhinitis noneactive [facility] Work Phone: Evaluation note* Diagnosis [...] Coronary atherosclerosis of unspecified type of vessel, [place] or graft Chest pain due to CAD [...] of intractable epilepsy documented in this encounter [facility] HealthcareEvaluation note* Diagnosis Major depressive disorder, [...] Coronary atherosclerosis of unspecified type of vessel, [place] or graft Chest pain due to CAD [...] of lumbar region documented in this encounter [facility]* Diagnosis Major depressive disorder, [...] Coronary atherosclerosis of unspecified type of vessel, [place] or graft Chest pain due to CAD [...] recurrent episode, mild documented [facility] encounter [facility]* [...] Coronary atherosclerosis of unspecified type of vessel, [place] or graft Chest pain due to CAD [...] malignant neoplasms, colon documented in this encounter [facility]* Diagnosis Major depressive disorder, [...] Coronary atherosclerosis of unspecified type of vessel, [place] or graft Chest pain due to CAD [...] Coronary atherosclerosis of unspecified type of vessel, [place] or graft Chest pain due to CAD [...] of lumbar region documented in this encounter [facility]* Diagnosis Major depressive disorder, [...] Coronary atherosclerosis of unspecified type of vessel, [place] or graft Chest pain due to CAD [...] unspecified site (CMS/HCC) documented in this encounter [facility]* Diagnosis Major depressive disorder, [...] Coronary atherosclerosis of unspecified type of vessel, [place] or graft Chest pain due to CAD [...] Coronary atherosclerosis of unspecified type of vessel, [place] or graft Chest pain due to CAD [...] of intractable epilepsy documented in this encounter [facility] HealthcareEvaluation note* Diagnosis Major depressive disorder, [...] Coronary atherosclerosis of unspecified type of vessel, [place] or graft Chest pain due to CAD [...] Unspecified sinusitis (chronic) documented in this encounter [facility] HealthcareEvaluation note* Diagnosis Major depressive disorder, [...] Coronary atherosclerosis of unspecified type of vessel, [place] or graft Chest pain due to CAD [...] urinary bladder, unspecified site (CMS/HCC) Deviated nasal septum documented in this encounter [facility] HealthcareHistory general Narrative - Reported* Type Description Date Medical History Seizure Disorder Medical History neuropathy Medical History HX of Bladder CA Medical History hypercholesterolemia Surgical History TUMOR REMOVED FROM BLADDER Surgical History RIGHT ACHILLES TENDON REPAIR Hospitalization History See Above [facility] Other History general Narrative - Reported* Type [...] Surgical History gallbladder Hospitalization History See Above [facility] Other Hospital course Narrative No data available for this section [facility] InstructionsNot on filedocumented [facility] this [facility] No data available for this section [facility] reason for visit NarrativeReferral Dr. [facility] Other reason for visit Narrative* Consultation (Routine) - Closed Specialty Diagnoses / Procedures Referred By Yariel alvarez Referred To Contact General Surgery Diagnoses Colon cancer screening Procedures CT OFFICE/OUTPATIENT [facility] Jignesh Gonsalez MD [address] [place] [address] Phone: tel: fax: Jose M Rea DO [address] [facility] [address] [place] [address] Phone: tel: fax: Referral ID Status Reason Start Date Expiration Date V isits Requested Visits Authorized [id number] Closed Specialty Services Required 10/25/2024 04/23/2025 1 1 [facility] Healthcare Summary Purpose Family History Relationship Condition [...] l Surgery Referred Organization [facility] Referred Address ,[place], [place],[address] Referred Provider Specialty Physical The rapist Referral [...] and content) DATE CREATED AUTHOR 08/29/2021 [facility] DATE CREATED AUTHOR AUTHOR'S ORGANIZ ATION 10/31/2021 [facility] DATE CREATED AUTHOR AUTHOR'S ORGANIZ ATION 01/13/2023 [facility] DATE CREATED AUTHOR AUTHOR'S ORGANIZ ATION 12/25/2023 [facility] DATE CREATED AUTHOR AUTHOR'S ORGANIZ ATION 12/29/2023 [facility] DATE CREATED AUTHOR AUTHOR'S ORGANIZ ATION 08/13/2024 [facility] DATE CREATED AUTHOR AUTHOR'S ORGANIZ ATION 10/20/2024 [facility] DATE CREATED AUTHOR AUTHOR'S ORGANIZ ATION 12/21/2024 [facility] EPIC REASON FOR VISIT (unrecogniz ed section and content) Reason Comments Med Refill Reason Onset Date Comments Med Refill 10/11/2024 Reason Onset Date Comments Med Refill 10/24/2024 Reason Comments Follow-up Knee pain, dizziness , Reason Onset Date Comments Med Refill 11/15/2024 Reason Comments Medicare Annual Wellness Visit Subsequen t wellness Reason Comments Deviated Nasal Septum Specialty Diagnoses / Procedures Referred By Contac t Referred To Contact Otolaryngology Diagnoses Deviated nasal septum Chronic rhinosinusitis Procedures CT OFFICE/OUTPATIENT [facility] 60 MINUTES Jignesh Gonsalez MD [address] [place] [address] Phone: tel: fax: Amrik Pérez MD [address] [facility] [place] [address] Phone: tel: fax: Referral ID Status Reason Start Date Expiration Date V isits Requested Visits Authorized [id number] Closed Specialty Services Required 11/28/2024 05/27/2025 1 1 Care Teams (unrecognized sec tion and content) [...] Attending Provider Active Start: September 07, 2024 Corporate Travel Agent Relationship Specialty Start Date End Date Jignesh Gonsalez MD [address] [place] [address] PCP - General Family Medicine 12/15/23 Corporate Travel Agent Relationship Specialty Start Date End Date Jignesh Gonsalez MD [address] [place] [address] PCP - General Family Medicine 12/15/23 Corporate Travel Agent Relationship Specialty Start Date End Date Jignesh Gonsalez MD [address] [place] [address] PCP - General Family Medicine 12/15/23 Corporate Travel Agent Relationship Specialty Start Date End Date Jignesh Gonsalez MD [address] [place] [address] PCP - General Family Medicine 12/15/23 Corporate Travel Agent Relationship Specialty Start Date End Date Jignesh Gonsalez MD [address] [place] [address] PCP - General Family Medicine 12/15/23 Corporate Travel Agent Relationship Specialty Start Date End Date Jignesh Gonsalez MD [address] [place] [address] PCP - General Family Medicine 12/15/23 Corporate Travel Agent Relationship Specialty Start Date End Date Jignesh Gonsalez MD [address] [place] [address] PCP - General Family Medicine 12/15/23 Corporate Travel Agent Relationship Specialty Start Date End Date Jignesh Gonsalez MD [address] [place] [address] PCP - General Family Medicine 12/15/23 Corporate Travel Agent Relationship Specialty Start Date End Date Jignesh Gonsalez MD [address] [place] [address] PCP - General Family Medicine 12/15/23 Corporate Travel Agent Relationship Specialty Start Date End Date Jignesh Gonsalez MD [address] [place] [address] PCP - General Family Medicine 12/15/23 Corporate Travel Agent Relationship Specialty Start Date End Date Jignesh Gonsalez MD [address] [place] [address] PCP - General Family Medicine 12/15/23 Corporate Travel Agent Relationship Specialty Start Date End Date Jignesh Gonsalez MD [address] [place] [address] PCP - General Family Medicine 12/15/23 Corporate Travel Agent Relationship Specialty Start Date End Date Jignesh Gonsalez MD [address] [place] [address] PCP - General Family Medicine 12/15/23 Corporate Travel Agent Relationship Specialty Start Date End Date Jose Mccloud DO [address] [place] [address] PCP - General Family Medicine 11/17/23 Goals [...] BE BASED ON THE PRIMARY CLINICAL RECORDS. [facility] [employer] [facility]. provides no warranty or guarantee of the accuracy or completeness of information in this document.
--- NOTE | 2025-01-09 19:43 | ED.CHESTPAI1 ---
Documented by User: ANNABELLE Long 01/09/25 21:06 HPI - Chest Pain General Chief Complaint: Chest Pain Stated Complaint: Chest Pain Time Seen by Provider: 01/09/25 19:36 Source: patient Mode of arrival: ambulance Limitations: no limitations History of Present Illness HPI narrative: Patient is a 9-year-old male who presents to the emergency department by ambulance for evaluation of chest pain for the last 3 to 4 hours. He describes the pain as sharp across his upper abdomen and lower chest. EMS reports that the patient was very winded with ambulation. Patient states he had a cardiac cath in 2008, showing 2 vessels with 20 to 30% blockage. He was supposed to follow-up for another cardiac cath in 2019 but this was delayed because of COVID and apparently the patient never had it rescheduled. He is a non-smoker from home. He reports a family history of coronary artery disease with his father. He takes medication for high cholesterol at home. He has not had any fevers, cough or congestion. No vomiting or diarrhea. EMS gave 1 sublingual nitro with improvement prior to arrival, patient reports the pain is coming back. Related Data Home Medications ?Medication ?Instructions ?Recorded ?Confirmed atorvastatin 10 mg tablet 10 mg PO .hs 05/12/23 12/11/24 citalopram 40 mg tablet 40 mg PO DAILY 05/12/23 12/11/24 meclizine 25 mg tablet 25 mg PO QID PRN dizziness 05/12/23 12/11/24 phenobarbital 32.4 mg tablet 32.4 mg PO Q12H 05/12/23 12/11/24 phenytoin sodium extended 100 mg 200 mg PO TID 05/12/23 12/11/24 capsule furosemide 40 mg tablet 40 mg PO DAILY edema 05/24/24 12/11/24 nitroglycerin 0.3 mg sublingual 0.3 mg sublingual Q5M PRN chest 05/24/24 12/04/24 tablet pain potassium chloride 20 mEq 20 meq PO DAILY PRN hypokalemia 05/24/24 12/11/24 tablet,extended release methocarbamol 750 mg tablet 750 mg PO Q8H PRN muscle spasm 12/04/24 12/11/24 psyllium husk 0.4 gram capsule 0.4 g PO DAILY 12/04/24 12/11/24 (Daily Fiber) Previous Rx's ?Medication ?Instructions ?Recorded hydrocodone 5 mg-acetaminophen 325 1 tab PO Q6H PRN pain 3 days #12 02/18/24 mg tablet tabs Allergies Allergy/AdvReac Type Severity Reaction Status Date / Time oxycodone (From OxyContin) Allergy Severe Anaphylaxis Verified 01/09/25 19:42 gabapentin Allergy Unknown Unknown Verified 01/09/25 19:42 phenytoin (From Dilantin) AdvReac Severe Dizziness Verified 01/09/25 19:42 Review of Systems ROS Constitutional Denies: fever or chills Ears, nose, mouth, and throat Denies: throat pain or nasal congestion Cardiovascular Reports: chest pain Respiratory Reports: shortness of breath; Denies: cough Gastrointestinal Reports: abdominal pain and nausea; Denies: vomiting Integumentary/Breast Denies: rash Neurological Denies: numbness in extremities or weakness in extremities Hematologic/Lymphatic Denies: easy bruising or easy bleeding PFSH [facility] Medical History (Updated 01/09/25 @ 21:06 by ANNABELLE Long) Cervical vertebral fusion ?M43.22 - Fusion of spine, cervical region (ICD-10) Lipoma of axilla ?D17.20 - Benign lipomatous neoplasm of skin and subcutaneous tissue of unspecified limb (ICD-10) Rupture, tendon, Achilles ?S86.019A - Strain of unspecified Achilles tendon, initial encounter (ICD-10) Syncope ?R55 - Syncope and collapse (ICD-10) Seizure ?R56.9 - Unspecified convulsions (ICD-10) Malignant neoplasm of mediastinum ?C38.3 - Malignant neoplasm of mediastinum, part unspecified (ICD-10) Depression ?F32.A - Depression, unspecified (ICD-10) Dyslipidemia ?E78.5 - Hyperlipidemia, unspecified (ICD-10) Deviated nasal septum ?J34.2 - Deviated nasal septum (ICD-10) Degenerative lumbar spinal stenosis ?M48.061 - Spinal stenosis, lumbar region without neurogenic claudication (ICD-10) 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 - Drug-induced polyneuropathy (ICD-10) ?T45.1X5A - Adverse effect of antineoplastic and immunosuppressive drugs, initial encounter (ICD-10) CAD, multiple vessel ?I25.10 - Atherosclerotic heart disease of enterprise coronary artery without angina pectoris (ICD-10) 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 - Malignant neoplasm of mediastinum, part unspecified (ICD-10) Bladder cancer ?C67.9 - Malignant neoplasm of bladder, unspecified (ICD-10) HLD (hyperlipidemia) ?E78.5 - Hyperlipidemia, unspecified (ICD-10) Chest pain ?R07.9 - Chest pain, unspecified (ICD-10) Surgical History (Updated 12/11/24 @ 07:49 by Sandy Hollye) History of cataract surgery ?Z98.49 - Cataract extraction status, unspecified eye (ICD-10) History of foot surgery ?Z98.890 - Other specified postprocedural states (ICD-10) History of esophagogastroduodenoscopy (EGD) ?Z98.890 - Other specified postprocedural states (ICD-10) History of colonoscopy ?Z98.890 - Other specified postprocedural states (ICD-10) History of neck surgery ?Z98.890 - Other specified postprocedural states (ICD-10) H/O shoulder surgery ?Z98.890 - Other specified postprocedural states (ICD-10) History of cholecystectomy ?Z90.49 - Acquired absence of other specified parts of digestive tract (ICD-10) Family History (Updated 12/04/24 @ 14:46 by Jackie Nielson) Father Family history of myocardial infarction Sister Family history of cancer Other Family history of coronary artery disease Family history of diabetes mellitus Family history of gastric cancer Family history of heart disease Family history of hypertension Family history of kidney cancer Family history of stroke Social History Within the past year, how often did you have a drink containing alcohol: never Score interpretation: A score less than 4 is consistent with normal alcohol consumption. Smoking status: Former smoker Non-prescribed substance use: denies use Previous occupational history: retired Highest level of school completed/degree received: Associate degree: occupational, technical, vocational program Little interest or pleasure in doing things: not at all Feeling down, depressed, or hopeless: not at all Gender Identity: male Exam Narrative Exam Narrative: Gen.: Awake, alert, in no distress Head: Normocephalic, atraumatic ENT: Moist mucous membranes Respiratory: No respiratory distress, lungs clear bilaterally Cardio: Regular rate and rhythm Gastrointestinal: Abdomen is soft, nondistended and nontender to palpation Extremities: Moves extremities equally, no pedal edema Psych: Normal mood and affect Neuro: No focal neuro deficit Skin: Warm, dry, intact Constitutional Vital Signs, click to edit/add: Last Vital Signs Pulse 68 01/09/25 22:34 Resp 18 01/09/25 22:34 BP 139/75 01/09/25 22:34 Pulse Ox 94 L 01/09/25 22:34 O2 Del Method Room Air 01/09/25 19:39 Course Vital Signs Vital signs: Vital Signs Pulse Rate 79 01/09/25 19:39 Respiratory Rate 16 01/09/25 19:39 Blood Pressure 136/70 01/09/25 19:39 Pulse Oximetry 91 L 01/09/25 19:39 Oxygen Delivery Method Room Air 01/09/25 19:39 Pulse Rate 68 01/09/25 22:34 Respiratory Rate 18 01/09/25 22:34 Blood Pressure 139/75 01/09/25 22:34 Pulse Oximetry 94 L 01/09/25 22:34 Oxygen Delivery Method Room Air 01/09/25 19:39 MDM - Chest Pain MDM Narrative Medical decision making narrative: 2100: Patient was given an inch of Nitropaste, Zofran and lab studies including troponin and BNP are within normal limits. Patient is hemodynamically stable. He had no improvement with nitroglycerin and was given additional Toradol and Norflex. EKG is within normal limits. Repeat troponin is pending at this time and chest x-ray shows no evidence of acute cardiopulmonary changes. Case is turned over to attending physician for disposition at this time. SHARED APC VISIT, PHYSICIAN ATTESTATION: [id number] I performed a substantive part of the MDM during the patient?s E/M visit. I personally evaluated and examined the patient. I personally made or approved the documented management plan and acknowledge its risk of complications. Medical Records Data Attestation: I reviewed the patient's medical records. Lab Data Attestation: I reviewed the patient's lab results. Labs: Lab Results 01/09/25 01/09/25 Range/Units 19:44 21:04 WBC 7.6 (4.0-11.0) 10^3/uL RBC 3.87 L (4.70-6.10) 10^6/uL Hgb 13.0 L (14.0-18.0) g/dL Hct 38.7 L (42.0-54.0) % MCV 100.0 H (80.0-94.0) fL MCH 33.6 (25.9-34.0) pg MCHC 33.6 (29.9-35.2) g/dL RDW 13.3 (11.0-15.0) % Plt Count 188 (150-450) 10^3/uL MPV 9.9 (9.5-13.5) fL Neut % (Auto) 58.8 (43.0-75.0) % Lymph % (Auto) 23.2 (20.5-60.0) % [place] % (Auto) 8.9 (1.7-12.0) % Eos % (Auto) 6.5 (0.9-7.0) % Baso % (Auto) 0.9 (0.2-2.0) % Neut # (Auto) 4.5 (1.4-6.5) 10^3/uL Lymph # (Auto) 1.8 (1.2-3.8) 10^3/uL [place] # (Auto) 0.7 (0.3-0.8) 10^3/uL Eos # (Auto) 0.5 (0.0-0.7) 10^3/uL Baso # (Auto) 0.1 (0.0-0.1) 10^3/uL Abs Immat Gran (auto) 0.13 H (0.00-0.03) 10^3/uL Imm/Tot Granulo (auto) 1.7 H (0.0-0.5) % PT 10.8 (9.0-11.6) sec INR 1.02 Sodium 138 (136-145) mmol/L Potassium 4.1 (3.5-5.1) mmol/L Chloride 105 (98-107) mmol/L Carbon Dioxide 26.5 (21.0-32.0) mmol/L Anion Gap 10.6 BUN 19.0 H (7.0-18.0) mg/dL Creatinine 1.23 (0.70-1.30) mg/dL Est GFR ( Amer) >60 (>=60 mL/min/1.73m^2) Est GFR (Non-Af Amer) 58 L (>=60 mL/min/1.73m^2) BUN/Creatinine Ratio 15.4 Glucose 124 H (74-106) mg/dL Calcium 8.0 L (8.5-10.1) mg/dL Total Bilirubin 0.2 (0.2-1.0) mg/dL AST 20 (15-37) U/L ALT 27 (16-63) U/L Alkaline Phosphatase 164 H (46-116) U/L Troponin I High Sens 6.2 5.9 (4.0-76.1) pg/mL NT-Pro-B Natriuret Pep 66.0 (<=900.0) pg/mL Total Protein 8.0 (6.4-8.2) g/dL Albumin 2.9 L (3.4-5.0) g/dL Globulin 5.1 g/dL Albumin/Globulin Ratio 0.6 Lipase 48.0 (16.0-77.0) U/L Imaging Data Chest x-ray: Radiologist's impression: Mild enlarged heart size, hypoinflated lungs, mild atelectasis at the right lung base, multiple surgical clips noted in the right hilum, fixation at the lower cervical spine, fixation at the left glenoid ECG Data Attestation: I personally reviewed and interpreted this ECG as follows: (Normal sinus rhythm at a rate of 76, no acute ST elevation or ectopy. EKG reviewed by attending physician) Heart Score History: Slightly/Non-Suspicious ECG: Normal Age: >65 years Risk Factors: >3 Risk Factors/ HX of CAD:2 Troponin: <Normal Limit Total Heart Score Recommendations & Risks:: 4 Discharge Plan Discharge Chief Complaint: Chest Pain Clinical Impression: Chest pain Patient Disposition: Admitted as Observation Time of Disposition Decision: 22:47 Condition: Good Documented by User: Richard Washington MD 01/09/25 22:50 HPI - Chest Pain General Chief Complaint: Chest Pain Stated Complaint: Chest Pain Time Seen by Provider: 01/09/25 19:36 History of Present Illness HPI narrative: Patient is a 69-year-old male who presents to the emergency department by ambulance for evaluation of chest pain for the last 3 to 4 hours. He describes the pain as sharp across his upper abdomen and lower chest. EMS reports that the patient was very winded with ambulation. Patient states he had a cardiac cath in 2008, showing 2 vessels with 20 to 30% blockage. He was supposed to follow-up for another cardiac cath in 2019 but this was delayed because of COVID and apparently the patient never had it rescheduled. He is a non-smoker from home. He reports a family history of coronary artery disease with his father. He takes medication for high cholesterol at home. He has not had any fevers, cough or congestion. No vomiting or diarrhea. EMS gave 1 sublingual nitro with improvement prior to arrival, patient reports the pain is coming back. Related Data Home Medications ?Medication ?Instructions ?Recorded ?Confirmed atorvastatin 10 mg tablet 10 mg PO .hs 05/12/23 12/11/24 citalopram 40 mg tablet 40 mg PO DAILY 05/12/23 12/11/24 meclizine 25 mg tablet 25 mg PO QID PRN dizziness 05/12/23 12/11/24 phenobarbital 32.4 mg tablet 32.4 mg PO Q12H 05/12/23 12/11/24 phenytoin sodium extended 100 mg 200 mg PO TID 05/12/23 12/11/24 capsule furosemide 40 mg tablet 40 mg PO DAILY edema 05/24/24 12/11/24 nitroglycerin 0.3 mg sublingual 0.3 mg sublingual Q5M PRN chest 05/24/24 12/04/24 tablet pain potassium chloride 20 mEq 20 meq PO DAILY PRN hypokalemia 05/24/24 12/11/24 tablet,extended release methocarbamol 750 mg tablet 750 mg PO Q8H PRN muscle spasm 12/04/24 12/11/24 psyllium husk 0.4 gram capsule 0.4 g PO DAILY 12/04/24 12/11/24 (Daily Fiber) Previous Rx's ?Medication ?Instructions ?Recorded hydrocodone 5 mg-acetaminophen 325 1 tab PO Q6H PRN pain 3 days #12 02/18/24 mg tablet tabs Allergies Allergy/AdvReac Type Severity Reaction Status Date / Time oxycodone (From OxyContin) Allergy Severe Anaphylaxis Verified 01/09/25 19:42 gabapentin Allergy Unknown Unknown Verified 01/09/25 19:42 phenytoin (From Dilantin) AdvReac Severe Dizziness Verified 01/09/25 19:42 PFSH [facility] Medical History (Updated 01/09/25 @ 21:06 by ANNABELLE Long) Cervical vertebral fusion ?M43.22 - Fusion of spine, cervical region (ICD-10) Lipoma of axilla ?D17.20 - Benign lipomatous neoplasm of skin and subcutaneous tissue of unspecified limb (ICD-10) Rupture, tendon, Achilles ?S86.019A - Strain of unspecified Achilles tendon, initial encounter (ICD-10) Syncope ?R55 - Syncope and collapse (ICD-10) Seizure ?R56.9 - Unspecified convulsions (ICD-10) Malignant neoplasm of mediastinum ?C38.3 - Malignant neoplasm of mediastinum, part unspecified (ICD-10) Depression ?F32.A - Depression, unspecified (ICD-10) Dyslipidemia ?E78.5 - Hyperlipidemia, unspecified (ICD-10) Deviated nasal septum ?J34.2 - Deviated nasal septum (ICD-10) Degenerative lumbar spinal stenosis ?M48.061 - Spinal stenosis, lumbar region without neurogenic claudication (ICD-10) 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 - Drug-induced polyneuropathy (ICD-10) ?T45.1X5A - Adverse effect of antineoplastic and immunosuppressive drugs, initial encounter (ICD-10) CAD, multiple vessel ?I25.10 - Atherosclerotic heart disease of enterprise coronary artery without angina pectoris (ICD-10) 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 - Malignant neoplasm of mediastinum, part unspecified (ICD-10) Bladder cancer ?C67.9 - Malignant neoplasm of bladder, unspecified (ICD-10) HLD (hyperlipidemia) ?E78.5 - Hyperlipidemia, unspecified (ICD-10) Chest pain ?R07.9 - Chest pain, unspecified (ICD-10) Surgical History (Updated 12/11/24 @ 07:49 by Sandy Holley) History of cataract surgery ?Z98.49 - Cataract extraction status, unspecified eye (ICD-10) History of foot surgery ?Z98.890 - Other specified postprocedural states (ICD-10) History of esophagogastroduodenoscopy (EGD) ?Z98.890 - Other specified postprocedural states (ICD-10) History of colonoscopy ?Z98.890 - Other specified postprocedural states (ICD-10) History of neck surgery ?Z98.890 - Other specified postprocedural states (ICD-10) H/O shoulder surgery ?Z98.890 - Other specified postprocedural states (ICD-10) History of cholecystectomy ?Z90.49 - Acquired absence of other specified parts of digestive tract (ICD-10) Family History (Updated 12/04/24 @ 14:46 by Jackie Nielson) Father Family history of myocardial infarction Sister Family history of cancer Other Family history of coronary artery disease Family history of diabetes mellitus Family history of gastric cancer Family history of heart disease Family history of hypertension Family history of kidney cancer Family history of stroke Social History Within the past year, how often did you have a drink containing alcohol: never Score interpretation: A score less than 4 is consistent with normal alcohol consumption. Smoking status: Former smoker Non-prescribed substance use: denies use Previous occupational history: retired Highest level of school completed/degree received: Associate degree: occupational, technical, vocational program Little interest or pleasure in doing things: not at all Feeling down, depressed, or hopeless: not at all Gender Identity: male Exam Constitutional Vital Signs, click to edit/add: Last Vital Signs Pulse 68 01/09/25 22:34 Resp 18 01/09/25 22:34 BP 139/75 01/09/25 22:34 Pulse Ox 94 L 01/09/25 22:34 O2 Del Method Room Air 01/09/25 19:39 Course Vital Signs Vital signs: Vital Signs Pulse Rate 79 01/09/25 19:39 Respiratory Rate 16 01/09/25 19:39 Blood Pressure 136/70 01/09/25 19:39 Pulse Oximetry 91 L 01/09/25 19:39 Oxygen Delivery Method Room Air 01/09/25 19:39 Pulse Rate 68 01/09/25 22:34 Respiratory Rate 18 01/09/25 22:34 Blood Pressure 139/75 01/09/25 22:34 Pulse Oximetry 94 L 01/09/25 22:34 Oxygen Delivery Method Room Air 01/09/25 19:39 MDM - Chest Pain MDM Narrative Medical decision making narrative: 2100: Patient was given an inch of Nitropaste, Zofran and lab studies including troponin and BNP are within normal limits. Patient is hemodynamically stable. He had no improvement with nitroglycerin and was given additional Toradol and Norflex. EKG is within normal limits. Repeat troponin is pending at this time and chest x-ray shows no evidence of acute cardiopulmonary changes. Case is turned over to attending physician for disposition at this time. SHARED APC VISIT, PHYSICIAN ATTESTATION: [id number] I performed a substantive part of the MDM during the patient?s E/M visit. I personally evaluated and examined the patient. I personally made or approved the documented management plan and acknowledge its risk of complications. JK 10:45 pm to set troponin are negative and chest x-ray shows no acute findings. His symptoms and history are concerning and he will be admitted for observation. Treatment diagnosis and disposition were discussed with the patient. Differential Diagnosis Differential diagnosis: Likely pneumothorax, stable angina, unstable angina pectoris, atypical chest pain, st elevation myocardial infarction and chest pain Lab Data Labs: Lab Results 01/09/25 01/09/25 Range/Units 19:44 21:04 WBC 7.6 (4.0-11.0) 10^3/uL RBC 3.87 L (4.70-6.10) 10^6/uL Hgb 13.0 L (14.0-18.0) g/dL Hct 38.7 L (42.0-54.0) % MCV 100.0 H (80.0-94.0) fL MCH 33.6 (25.9-34.0) pg MCHC 33.6 (29.9-35.2) g/dL RDW 13.3 (11.0-15.0) % Plt Count 188 (150-450) 10^3/uL MPV 9.9 (9.5-13.5) fL Neut % (Auto) 58.8 (43.0-75.0) % Lymph % (Auto) 23.2 (20.5-60.0) % [place] % (Auto) 8.9 (1.7-12.0) % Eos % (Auto) 6.5 (0.9-7.0) % Baso % (Auto) 0.9 (0.2-2.0) % Neut # (Auto) 4.5 (1.4-6.5) 10^3/uL Lymph # (Auto) 1.8 (1.2-3.8) 10^3/uL [place] # (Auto) 0.7 (0.3-0.8) 10^3/uL Eos # (Auto) 0.5 (0.0-0.7) 10^3/uL Baso # (Auto) 0.1 (0.0-0.1) 10^3/uL Abs Immat Gran (auto) 0.13 H (0.00-0.03) 10^3/uL Imm/Tot Granulo (auto) 1.7 H (0.0-0.5) % PT 10.8 (9.0-11.6) sec INR 1.02 Sodium 138 (136-145) mmol/L Potassium 4.1 (3.5-5.1) mmol/L Chloride 105 (98-107) mmol/L Carbon Dioxide 26.5 (21.0-32.0) mmol/L Anion Gap 10.6 BUN 19.0 H (7.0-18.0) mg/dL Creatinine 1.23 (0.70-1.30) mg/dL Est GFR ( Amer) >60 (>=60 mL/min/1.73m^2) Est GFR (Non-Af Amer) 58 L (>=60 mL/min/1.73m^2) BUN/Creatinine Ratio 15.4 Glucose 124 H (74-106) mg/dL Calcium 8.0 L (8.5-10.1) mg/dL Total Bilirubin 0.2 (0.2-1.0) mg/dL AST 20 (15-37) U/L ALT 27 (16-63) U/L Alkaline Phosphatase 164 H (46-116) U/L Troponin I High Sens 6.2 5.9 (4.0-76.1) pg/mL NT-Pro-B Natriuret Pep 66.0 (<=900.0) pg/mL Total Protein 8.0 (6.4-8.2) g/dL Albumin 2.9 L (3.4-5.0) g/dL Globulin 5.1 g/dL Albumin/Globulin Ratio 0.6 Lipase 48.0 (16.0-77.0) U/L Heart Score Total Heart Score Recommendations & Risks:: 4 Discharge Plan Discharge Chief Complaint: Chest Pain Clinical Impression: Chest pain Patient Disposition: Admitted as Observation Time of Disposition Decision: 22:47 Condition: Good
[2025-01-09] MEDS: ONDANSETRON PF 4 MG/2 ML VIAL IV (19:56)
[2025-01-09] MEDS: NITROGLYCERIN 2% 1 GRAM PACKET 1 GM TD (19:56)
[2025-01-09 20:01] LABS: Basophils Absolute Auto 0.1 10^3/uL (0.0-0.1); Basophils Percent Auto 0.9 % (0.2-2.0); Eosinophils Absolute Auto 0.5 10^3/uL (0.0-0.7); Eosinophils Percent Auto 6.5 % (0.9-7.0); Hematocrit 38.7 % (42.0-54.0); Immature Granulocytes Abs Auto 0.13 10^3/uL (0.00-0.03); Immature Granulocytes Pct Auto 1.7 % (0.0-0.5); Lymphocytes Absolute Auto 1.8 10^3/uL (1.2-3.8); Lymphocytes Percent Auto 23.2 % (20.5-60.0); Mean Corpuscular HGB Conc 33.6 g/dL (29.9-35.2); Mean Corpuscular Hemoglobin 33.6 pg (25.9-34.0); Mean Platelet Volume 9.9 fL (9.5-13.5); Monocytes Absolute Auto 0.7 10^3/uL (0.3-0.8); Monocytes Percent Auto 8.9 % (1.7-12.0); Neutrophils Absolute Auto 4.5 10^3/uL (1.4-6.5); Neutrophils Percent Auto 58.8 % (43.0-75.0); Platelet Count 188 10^3/uL (150-450); Red Blood Count 3.87 10^6/uL (4.70-6.10); Red Cell Distribution Width 13.3 % (11.0-15.0); White Blood Count 7.6 10^3/uL (4.0-11.0)
[2025-01-09 20:17] LABS: Alanine Aminotransferase 27 U/L (16-63); Albumin Globulin Ratio 0.6; Albumin Level 2.9 g/dL (3.4-5.0); Alkaline Phosphatase 164 U/L (46-116); Anion Gap 10.6; Aspartate Amino Transferase 20 U/L (15-37); BUN Creatinine Ratio 15.4; Bilirubin Total 0.2 mg/dL (0.2-1.0); Carbon Dioxide 26.5 mmol/L (21.0-32.0); Chloride 105 mmol/L (98-107); Estimated GFR (African America >60 (>=60 mL/min/1.73m^2); Estimated GFR (Non-African Ame 58 (>=60 mL/min/1.73m^2); Globulin 5.1 g/dL; Glucose 124 mg/dL (74-106); Potassium 4.1 mmol/L (3.5-5.1); Sodium 138 mmol/L (136-145)
[2025-01-09 20:20] LABS: INR 1.02; Prothrombin Time 10.8 sec (9.0-11.6)
[2025-01-09 20:24] LABS: Troponin I High Sensitivity 6.2 pg/mL (4.0-76.1)
[2025-01-09] MEDS: KETOROLAC TROMETHAMINE 30 MG/ML VIAL 15 MG IVP (20:44)
[2025-01-09] MEDS: ORPHENADRINE 60 MG/ 2 ML VIAL IV (20:45)
--- NOTE | 2025-01-09 21:16 | PC.NURSE ---
this patient awake and alert sitting upright on the bed listening to music from his cell phone. this patient's chest pain is down to 1/10, this patient voices no concerns and shows no signs of distress
[2025-01-09 21:30] LABS: Troponin I High Sensitivity 5.9 pg/mL (4.0-76.1)
--- OUTSIDE RECORDS SUMMARY | 2025-01-09 23:37 | XMS_ITS | CCD ---
Author Organization [facility] Care Team Providers Care Garde Manager Name Role Phone KARINA JAY Attending Unavailable [...] NADJEM, DR JIGNESH Means Primary Care Unavailable [place], DR TRINIDAD Cummins Consulting Unavailable LUZMARIA ., [...] KELL Brizuela Consulting Unavailable WALLACE, DR JIGNESH eMans Consulting Unavailable WALLACE, DR JIGNESH Maens Admitting Unavailable WALLACE, DR JIGNESH Means Attending Unavailable WALLACE, DR JIGNESH Means Primary Care Unavailable BARBER, DR KELL Brizuela Consulting Unavailable WALLACE, DR JIGNESH Means Consulting Unavailable Luiz Riggs Unavailable MD Luiz Riggs Attending Provider [phone] MD Jignesh Gonsalez Primary Care Provider [phone] JIGNESH GONSALEZ Primary Care Physician Chris CAMARILLO Attending Unavailable JIGNESH GONSALEZ Referring Unavailable Chris CAMARILLO Attending Unavailable MD Jignesh Gonsalez Primary Care Provider RIDGE Garcia Attending Provider OVITT, CORNELIO Referring Unavailable OVITT, CORNELIO Referring Unavailable NARA, ROGERIO Referring Unavailable OVITT, CORNELIO Attending Unavailable DARI HODGESISON Attending Unavailable MD Jignesh Gonsalez Primary Care Provider [phone] RIDGE Garcia Attending Provider [phone] Jignesh Gonsalez MD Primary Care Provider Jignesh [...] Unavailable Jose Mccloud DO Primary Care Provider Allergies Allergy Classification Reported Allergen(s) Allergy Type Date of Onset Reaction(s) Facility Anti-Epileptic Agents (2 sources) gabapentin Drug Allergy 4 stomach upset, IV ONLY-Dizzy [facility] Opioid Agonists (1 source) oxyCODONE Drug Allergy 4 Unknown Reaction [facility] (11 sources) gabapentin; Translations: [GABAPENTIN] Drug Allergy 0 stomach upset [facility] (2 sources) oxyCODONE Drug Allergy 0 [facility] (3 sources) Phenytoin; Translations: [Dilantin] Drug Allergy 0 [facility] (20 sources) gabapentin; Translations: [gabapentin] Drug Allergy 0 Unknown (qualifier value), Unknown [facility] (20 sources) oxyCODONE; Translations: [oxycodone] Drug Allergy 0 Difficulty breathing (finding), Angioedema, Unknown [facility] (13 sources) Phenytoin; Translations: [phenytoin] Drug Allergy 6 Dizziness (finding), Unknown, Dizziness [facility] (1 source) Phenytoin; Translations: [PHENYTOIN SODIUM EXTENDED] Drug Allergy 6 [facility] (1 source) ALLERGIES NOT ON FILE; Translations: [ALLERGIES NOT ON FILE] Propensity to adverse reactions (disorder) [facility] (1 source) gabapentin Drug Allergy 4 [facility] (1 source) oxyCODONE Drug Allergy 4 [facility] (1 source) Phenytoin Drug Allergy 4 [facility] Medications Current Medications Medication Drug Class(es) Dates Sig (Normalized) Sig (Original) acetaminophen 325 mg / HYDROcodone bitartrate 5 mg oral tablet (20 sources) Opioid Agonist Start: 11-15-2024 End: 11-22-2024 take 1 tablet by mouth four times daily as needed for pain HYDROcodone-acetami nophen ([place]) 5-325 MG tablet Indications: Degenerative lumbar spinal stenosis Take 1 tablet by mouth 4 (four) times a day as needed for severe pain for up to 7 days 28 tablet 11/15/2024 11/22/2024 Active Start: 10-11-2024 End: 11-01-2024 take 1 tablet by mouth four times daily as needed for pain HYDROcodone-acetaminophen ([place]) 5-325 MG tablet Indications: Degenerative lumbar spinal stenosis Take 1 tablet by mouth 4 (four) times a day as needed for severe pain for up to 7 days 28 tablet 10/25/2024 11/01/2024 Active Start: 04-23-2024 take 1 tablet by ambika th four times daily Hydrocodone-Acetaminophen Active 1 TAB P O Four times daily April 23, 2024 12:00am [place] Active take 1 tablet by ambika th [...] 2 mg/ml injectable solution (1 source) vit T5-J3-W3-B5- B6 (B-COMPLEX INJECTION) 734-7-801-2-2 mg/mL solution B-Complex 1 QD 0 Active [...] TAB PO Daily April 23, 2024 12:00am irmonpwrxmbn-ybljgxno-fx tein (MULTIVITAMIN 50 PLUS) tablet (1 source) [...] 07-18-2024 take 2 tablets by mo [facility] three times daily PHENobarbital (Luminal) 32.4 MG [...] 11-15-2022 take 2 tablets by mo [facility] three times daily PHENobarbitaL (LUMINAL) 32.4 mg tablet Indications: Seizure (CMS-HCC) take 2 tablets by mouth three times a day 180 tablet 0 11/15/2022 Active take 1 tablet by 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 CURRENT DRUG THERAPY] Onset: 12-27-2022 Episodic Other [...] (BMI) of 40.0 to 44.9 in adult ([facility])] Onset: 01-12-2021 11-22-2024 Chronic Other [...] current use of drug therapy; Translations: [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] Onset: 11-29-2023 11-29-2023 Episodic Other aftercare (20 sources) Post-discharge follow-up; Translations: [Encounter for follow-up examination after completed treatment for conditions other than malignant neoplasm] Onset: 01-11-2024 Resolved: 02-21-2024 02-21-2024 Episodic Other aftercare (1 source) Patient encounter status; Translations: [Other [facility] (current) drug therapy] Onset: 11-29-2023 11-29-2023 Episodic [...] Panel InformationOrdered By: Fay Adhikari on 11-27-2024 [facility] Radiology Study observation (narrative) [facility] XR knee RT 4V*on 10-17-2024 XR knee RT 4V* [facility] Main [address] [address] XRay Report Signed Patient: Nazario Cortes Jr MR#: [id number] : 1955 Acct:[id number] Age/Sex: 69 / M ADM Date: 10/17/24 Loc: XDUCLY Room: Type: REG CLI Attending Dr: Yancy Lawson SKIING TEACHER Copies to: Yancy Lawson APRN Ordering Provider: Yancy aLwson APRN Date of Service: 10/17/24 XR/XR knee [...] Hoa Lockwood M.D.10/17/2024 2:40 PM Dictation Location: [place] [address] Transcribed By: [facility] 10/17/24 1440 Dictated By: Hoa Lockwood MD 10/17/24 1438 Signed By: 10/17/24 1440 Normal [facility] XR knee RT 4V*on 09-07-2024 XR knee RT 4V* [facility] Main [address] [address] XRay Report Signed Patient: Nazario Cortes Jr MR#: [id number] : 1955 Acct:[id number] Age/Sex: 69 / M ADM Date: 09/07/24 Loc: XDUC Room: Type: REG CLI Attending Dr: Joslyn aGrcia SKIING TEACHER Copies to: Joslyn Garcia APRN Ordering Provider: Joslyn M Radha, SKIING TEACHER Date of Service: 09/07/24 XR/XR knee RT 4V*: RIGHT KNEE PAIN RIGHT KNEE - 3 views CLINICAL HISTORY: Right knee pain COMPARISON: None FINDINGS: Mild degenerative changes without acute bony process. No significant joint effusion. XR/XR knee RT 4V* IMPRESSION: MILD DEGENERATIVE CHANGES OF THE RIGHT KNEE WITHOUT ACUTE BONY PROCESS. Impression dictated by: Bar Ching Jr., D.OKellie09/07/2024 4:15 PM Dictation Location: [facility] Transcribed By: [facility] 09/07/241614 Dictated By: Bar Ching Jr, DO 09/07/241613 Signed By: 09/07/241614 Normal [facility] Influenza virus A and B and SARS-CoV-2 (COVID-19) RNA panel - Respiratory system specon 08-16-2024 Influenza virus A and B RNA and SARS-CoV-2 (COVID-19) N gene panel ALEX+probe (Resp) Negative [facility] - Microbiology an d Antimicrobial susceptibilityon 08-16-2024 SARS-CoV-2 (COVID-19) RNA ALEX+probe Ql (Unsp spec) Negative [facility] No Panel Informationon 08-16 POC Influenza B (ALEX) Negative [facility] Follow-Upon 08-08-2024 Follow-Up [id number] SophiaNazario 1955 M Date Provider Department Center 08/08/2024 CORNELIO NEGRON [facility] [place] Family History Problem Relation Age of Onset Supraventricular tachycardia Mother Stroke Father Kidney cancer Sister Diabetes Sister COPD Brother Family Status - Relation Status Age at Mother Father Sister Brother Level of Service:89588 HI OFFICE/OUTPATIENT ESTABLISHED MOD MDM 30 MIN Reason for Visit and Comments: Follow-up [873989] - Pt is here for a follow up visit for Lumbar Stenosis. Normal [facility] 36on 07-30-2024 36 Talked to patient. Advised [...] given his ongoing issues. Verbalizes understanding. Normal [facility] Telephoneon 07-30-2024 Telephone [id number] Nazario Cortes 1955 M Date Provider Department Center 07/30/2024 Oscar-CORNELIO HODGES [facility] [place] Family History Problem Relation Age of Onset Supraventricular tachycardia Mother Stroke Father Kidney cancer Sister Diabetes Sister COPD Brother Family Status - Relation Status Age at Mother Father Sister Brother Normal [facility] MR CERVICAL SPINE W AND WO C [...] BOWMAN MD. Not Vldtd Invalid Interpretation Code [facility] XR elbow LT min 3V*on 2023 XR elbow LT min 3V* [facility] Main [place] [address] [place] [address] XRay Report Signed Patient: Nazario Cortes Jr MR#: [id number] : 1955 Acct:[id number] Age/Sex: 69 / M ADM Date: 05/15/24 Loc: XDUCLY Room: Type: [facility] Attending Dr: Joslyn Garcia APRN Copies to: [...] Zain Fitzpatrick M.D.05/15/2024 4:23 PM Dictation Location: [place] [address] Transcribed By: [facility] 05/15/24 1623 Dictated By: Zain Fitzpatrick DO 05/15/24 1621 Signed By: 05/15/24 1623 Normal [facility] Orders Onlyon 04-11-2024 Orders Only [id number] Nazario Cortes 1955 M Date Provider Department Center 04/11/2024 [id number], HISTORICAL CARD [facility] Family History Problem Relation Age of Onset Supraventricular tachycardia Mother Stroke Father Kidney cancer Sister Diabetes Sister COPD Brother Family Status - Relation Status Age at Mother Father Sister Brother Normal [facility] Consulton 01-05-2024 Consult [id number] Nazario Cortes 1955 M Date Provider Department Center 01/05/2024 CORNELIO NEGRON [facility] Second Fl Family History Problem Relation Age of Onset Supraventricular tachycardia Mother Stroke Father Kidney cancer Sister Diabetes Sister COPD Brother Family Status - Relation Status Age at Mother Father Sister Brother Level of Service:25597 HI OFFICE/OUTPATIENT NEW MODERATE MDM 45 MINUTES [...] little relief about 6-7 years ago. Normal [facility] US CAROTID ART BILon 023 US CAROTID [...] by: KELL BLANDON Date: 2023-01-11 08:42 Normal [facility] ECHOCARDIO M/2D COMPLETEon 0 01-07-2023 ECHOCARDIO M/2D COMPLETE Patient: NAZARIO CORTES Exam Date: 01/07/2023 : 1955 Gender:M Ordering : DR JIGNESH GONSALEZ . Admission #: [id number] Family : Order #: [id number] CLICK HERE TO VIEW EXAM ECHOCARDIOGRAM REPORT [...] 3.86 cm Aortic Valve AoV Area (Peak Baimael): 3.03 cm2, 3.03 cm2 Peak Velocity(Antegrade Flow): [...] M.D. on 01/11/2023 at 18:23 Normal [facility] XR ELBOW LT MIN 3 VIEWSon [...] VIDAL NAVYAKRYSTAL Date: 2022-12-24 20:23 Normal [facility] XR HIP LT 2 3V W PELVISon XR HIP LT 2 3V W PELVIS EXAM: XR HIP LT 2 3V W PELVIS HISTORY: Bone injury COMPARISON: None. TECHNIQUE: 3 views of the left hip FINDINGS: No acute fracture is seen. Joint alignment is normal. Joint spaces are preserved. Soft tissues appear unremarkable. IMPRESSION: No acute fracture or malalignment. Electronically authenticated by: Capture MediaKRYSTAL Date: 2022-12-24 20:21 Normal [facility] XR HUMERUS LT MIN 2Von 12-24 [...] KELL DELANEY Date: 2022-12-24 21:03 Normal [facility] CBC AUTO DIFFon 11-04-2022 BASO # 0.1 103/ul Normal 0.0-0.1 [facility] Comment on above: Performed By: #### B MP, CMREP, LIPID #### [facility] [address] [place] [address] [address] Jeimy Tenorio Basophils/100 WBC (Bld) 0.9 % Normal 0.2-2.0 [facility] Comment on above: Performed By: #### B MP, CMREP, LIPID #### [facility] [address] [place] [address] Dr. Jeimy Tenorio EO # 0.3 103/ul Normal 0.0-0.7 [facility] Comment on above: Performed By: #### B MP, CMREP, LIPID #### [facility] [address] [place] [address] Dr. Jeimy Tenorio Eosinophils/100 WBC (Bld) 5.2 % Normal 0.9-7.0 [facility] Comment on above: Performed By: #### B MP, CMREP, LIPID #### [facility] [address] [place] [address] Dr. Jeimy Tenorio Erythrocyte distribution width (RBC) [Ratio] 12.9 % Normal 11.0-15.0 [facility] Comment on above: Performed By: #### B MP, CMREP, LIPID #### [facility] [address] [place] [address] Dr. Jeimy Tenorio Hematocrit (Bld) [Volume fraction] 39.5 % Critically low 42.0-54.0 [facility] Comment on above: Performed By: #### B MP, CMREP, LIPID #### [facility] [address] [place] [address] Dr. Jeimy Tenorio Hemoglobin (Bld) [Mass/Vol] 13.1 g/dL Critically low 14.0-18.0 [facility] Comment on above: Performed By: #### B MP, CMREP, LIPID #### [facility] [address] [place] [address] Dr. Jeimy Tenorio IG # 0.03 10e3/ul Normal 0.00-0.03 [facility] Comment on above: Performed By: #### B MP, CMREP, LIPID #### [facility] [address] [place] [address] Dr. Jeimy Tenorio IG % 0.5 % Normal 0.0-0.5 [facility] Comment on above: Performed By: #### B MP, CMREP, LIPID #### [facility] [address] [place] [address] [address] Jeimy Tenorio LYMPH # 1.5 103/ul Normal 1.2-3.8 [facility] Comment on above: Performed By: #### B MP, CMREP, LIPID #### [facility] [address] [address] [address] Jeimy Tenorio Lymphocytes/100 WBC (Bld) 22.6 % Normal 20.5-60.0 [facility] Comment on above: Performed By: #### B MP, CMREP, LIPID #### [facility] [address] [place] [address] [address] Jeimy Tenorio MANUAL DIFF REQ NO Normal [facility] Comment on above: Performed By: #### B MP, CMREP, LIPID #### [facility] [address] [place] [address] Dr. Jeimy Tenorio MCH (RBC) [Entitic mass] 32.8 pg Normal 25.9-34.0 [facility] Comment on above: Performed By: #### B MP, CMREP, LIPID #### [facility] [address] [place] [address] Dr. Jeimy Tenorio MCHC (RBC) [Mass/Vol] 33.2 g/dL Normal 29.9-35.2 [facility] Comment on above: Performed By: #### B MP, CMREP, LIPID #### [facility] [address] [place] [address] Dr. Jeimy Tenorio MCV (RBC) [Entitic vol] 99.0 fL Critically high 80.0-94.0 [facility] Comment on above: Performed By: #### B MP, CMREP, LIPID #### [facility] [address] [address] [address] Jeimy Tenorio MONO # 0.7 103/ul Normal 0.3-0.8 [facility] Comment on above: Performed By: #### B MP, CMREP, LIPID #### [facility] [address] [place] [address] Dr. Jeimy Tenorio Monocytes/100 WBC (Bld) 10.6 % Normal 1.7-12.0 [facility] Comment on above: Performed By: #### B MP, CMREP, LIPID #### [facility] [address] [place] [address] [address] Jeimy Tenorio NEUT # 4.0 103/ul Normal 1.4-6.5 [facility] Comment on above: Performed By: #### B MP, CMREP, LIPID #### [facility] [address] [place] [address] Dr. Jeimy Tenorio Neutrophils/100 WBC (Bld) 60.2 % Normal 43.0-75.0 [facility] Comment on above: Performed By: #### B MP, CMREP, LIPID #### [facility] [address] [place] [address] Dr. Jeimy Tenorio Platelet mean volume (Bld) [Entitic vol] 9.7 fL Normal 9.5-13.5 [facility] Comment on above: Performed By: #### B MP, CMREP, LIPID #### [facility] [address] [place] [address] Dr. Jeimy Tenorio PLT 176 103/ul Normal 150-450 [facility] Comment on above: Performed By: #### B MP, CMREP, LIPID #### [facility] [address] [place] [address] Dr. Jeimy Tenorio RBC 3.99 106/ul Critically low 4.70-6.10 [facility] Comment on above: Performed By: #### B MP, CMREP, LIPID #### [facility] [address] [place] [address] Dr. Jeimy Tenorio WBC 6.6 103/ul Normal 4.0-11.0 [facility] Comment on above: Performed By: #### B MP, CMREP, LIPID #### [facility] [address] [place] [address] HEAD WO CONon [...] ALEJANDRO PINEDA Date: 2022-11-04 14:08 Normal [facility] Covid-19 PCR ([facility])on 10-21 SARS-CoV-2 (COVID-19) RNA ALEX+probe Ql (Unsp spec) Not detected Normal NOT DETECTED [facility] Comment on above: Result Comment: This test is not yet approved or cleared by the [place] FDA. When there are no FDA-approved or cleared tests available, and other criteria are met, FDA can make tests available under an emergency access mechanism called an Emergency Use Authorization (EUA). The EUA for this test is supported by the Quality Assurance Calibrator of Health and Human Service's (HHS's) declaration [...] By: #### B MP, CMREP, LIPID #### [facility] [address] [place] [address] Dr. Jeimy Tenorio INFLUENZA A AND B AGon 11-04 INFLUANEGH SEE BELOW Normal [facility] Comment on above: Result Comment: Nega tive for Flu A protein angiten. Infection due to Flu A cannot be ruled out. Flu A angiten in the sample may be below the detection limit of the test. Performed By: #### I NFLUAB #### [facility] [address] [place] [address] Dr. Jeimy Tenorio INFLUBNEGH SEE BELOW Normal [facility] Comment on above: Result Comment: Nega tive for Flu B protein antigen. Infection due to Flu B cannot be ruled out. Flu B antigen in the sample may be below the detection limit of the test. Performed By: #### I NFLUAB #### [facility] [address] [place] [address] Dr. Jeimy Tenorio INFLUENZA A AG Negative Normal NEGATIVE SEE COMMENT [facility] Comment on above: Performed By: #### I NFLUAB #### [facility] [address] [place] [address] Dr. Jeimy Tenorio INFLUENZA B AG Negative Normal NEGATIVE SEE COMMENT [facility] Comment on above: Performed By: #### I NFLUAB #### [facility] [address] [place] [address] Dr. Jeimy Tenorio INTERNAL CONTROLS Within Normal Limits Normal Wi thin Normal Limits [facility] Comment on above: Performed By: #### I NFLUAB #### [facility] [address] [place] [address] Dr. Jeimy Tenorio PROF CHEM 8 (BAS METB)on Anion gap [Moles/Vol] 9.7 mmol/L Normal [facility] Comment on above: Performed By: #### C BC #### [facility] [address] [place] [address] Dr. Jeimy Tenorio Calcium [Mass/Vol] 8.0 mg/dL Critically low 8.5-10.1 [facility] Comment on above: Performed By: #### C BC #### [facility] [address] [place], [place] [id number] Dr. Jeimy Tenorio Chloride [Moles/Vol] 104 mmol/L Normal 98-107 [facility] Comment on above: Performed By: #### C BC #### [facility] [address] [place] [address] [address] Jeimy Tenorio CO2 [Moles/Vol] 31.1 mmol/L Normal 21.0-32.0 [facility] Comment on above: Performed By: #### C BC #### [facility] [address] [place] [address] Dr. Jeimy Tenorio Creatinine [Mass/Vol] 0.75 mg/dL Normal 0.70-1.30 [facility] Comment on above: Performed By: #### C BC #### [facility] [address] [place] [address] Dr. Jeimy Tenorio EGFR-AF LUXEMBOURGER >60 Normal >=60 [facility] Comment on above: Performed By: #### C BC #### [facility] [address] [place] [address] Dr. Jeimy Tenorio EGFR-NON AF LUXEMBOURGER >60 Normal >=60 [facility] Comment on above: Performed By: #### C BC #### [facility] [address] [place] [address] Dr. Jeimy Tenorio Glucose [Mass/Vol] 76 mg/dL Normal 74-106 [facility] Comment on above: Performed By: #### C BC #### [facility] [address] [place] [address] Dr. Jeimy Tenorio Potassium [Moles/Vol] 3.8 mmol/L Normal 3.5-5.1 [facility] Comment on above: Performed By: #### C BC #### [facility] [address] [place] [address] Dr. Jeimy Tenorio Sodium [Moles/Vol] 141 mmol/L Normal 136-145 [facility] Comment on above: Performed By: #### C BC #### [facility] [address] [place] [address] Dr. Jeimy Tenorio Urea nitrogen [Mass/Vol] 12.0 mg/dL Normal 7.0-18.0 [facility] Comment on above: Performed By: #### C BC #### [facility] [address] [place] [address] Dr. Jeimy Tenorio Urea nitrogen/Creatinine [Mass ratio] 16.0 mg/mg Normal [facility] Comment on above: Performed By: #### C BC #### [facility] [address] [place] [address] Dr. Jeimy Tenorio TROPONIN, HIGH SENSITIVITYon 11-04-2022 HSTROP 5.8 pg/mL Normal 4.0-76.1 [facility] Comment on above: Result Comment: CUT- OFF POINTS HAVE BEEN ESTABLISHED BASED ON THE FOURTH UNIVERSAL DEFINITIONS OF MYOCARDIAL INFARCTION. THE UPPER REFERENCE LIMIT (URL) OF TROPONIN, DEFINED THE 99TH PERCENTILE OF cTnI DISTRIBUTION IN A REFERENCE POPULATION, HAS BEEN CONFIRMED THE DECISION THRESHOLD FOR GA DIAGNOSIS. Performed By: #### C BC #### [facility] [address] [place] [address] Dr. Jeimy Tenorio CBC AUTO DIFFon 09-29-2022 BASO # 0.1 103/ul Normal 0.0-0.1 [facility] Comment on above: Performed By: #### B MP, CMREP, LIPID #### [facility] [address] [place] [address] Dr. Jeimy Tenorio Basophils/100 WBC (Bld) 1.2 % Normal 0.2-2.0 [facility] Comment on above: Performed By: #### B MP, CMREP, LIPID #### [facility] [address] [place] [address] Dr. Jeimy Tenorio EO # 0.3 103/ul Normal 0.0-0.7 [facility] Comment on above: Performed By: #### B MP, CMREP, LIPID #### [facility] [address] [place] [address] Dr. Jeimy Tenorio Eosinophils/100 WBC (Bld) 4.9 % Normal 0.9-7.0 [facility] Comment on above: Performed By: #### B MP, CMREP, LIPID #### [facility] [address] [place] [address] Dr. Jeimy Tenorio Erythrocyte distribution width (RBC) [Ratio] 13.2 % Normal 11.0-15.0 [facility] Comment on above: Performed By: #### B MP, CMREP, LIPID #### [facility] [address] [place] [address] Dr. Jeimy Tenorio Hematocrit (Bld) [Volume fraction] 42.3 % Normal 42.0-54.0 [facility] Comment on above: Performed By: #### B MP, CMREP, LIPID #### [facility] [address] [place] [address] Dr. Jeimy Tenorio Hemoglobin (Bld) [Mass/Vol] 13.8 g/dL Critically low 14.0-18.0 [facility] Comment on above: Performed By: #### B MP, CMREP, LIPID #### [facility] [address] [place] [address] Dr. Jeimy Tenorio IG # 0.02 10e3/ul Normal 0.00-0.03 [facility] Comment on above: Performed By: #### B MP, CMREP, LIPID #### [facility] [address] [place] [address] Dr. Jeimy Tenorio IG % 0.3 % Normal 0.0-0.5 [facility] Comment on above: Performed By: #### B MP, CMREP, LIPID #### [facility] [address] [place] [address] Dr. Jeimy Tenorio LYMPH # 1.3 103/ul Normal 1.2-3.8 [facility] Comment on above: Performed By: #### B MP, CMREP, LIPID #### [facility] [address] [place] [address] Dr. Jeimy Tenorio Lymphocytes/100 WBC (Bld) 19.5 % Critically low 20.5-60.0 [facility] Comment on above: Performed By: #### B MP, CMREP, LIPID #### [facility] [address] [place] [address] Dr. Jeimy Tenorio MANUAL DIFF REQ NO Normal [facility] Comment on above: Performed By: #### B MP, CMREP, LIPID #### [facility] [address] [place] [address] Dr. Jeimy Tenorio MCH (RBC) [Entitic mass] 32.9 pg Normal 25.9-34.0 [facility] Comment on above: Performed By: #### B MP, CMREP, LIPID #### [facility] [address] [place] [address] Dr. Jeimy Tenorio MCHC (RBC) [Mass/Vol] 32.6 g/dL Normal 29.9-35.2 [facility] Comment on above: Performed By: #### B MP, CMREP, LIPID #### [facility] [address] [place] [address] Dr. Jeimy Tenorio MCV (RBC) [Entitic vol] 100.7 fL Critically high 80.0-94.0 [facility] Comment on above: Performed By: #### B MP, CMREP, LIPID #### [facility] [address] [place] [address] Dr. Jeimy Tenorio MONO # 0.7 103/ul Normal 0.3-0.8 [facility] Comment on above: Performed By: #### B MP, CMREP, LIPID #### [facility] [address] [place] [address] Dr. Jeimy Tenorio Monocytes/100 WBC (Bld) 9.9 % Normal 1.7-12.0 [facility] Comment on above: Performed By: #### B MP, CMREP, LIPID #### [facility] [address] [place] [address] Dr. Jeimy Tenorio NEUT # 4.3 103/ul Normal 1.4-6.5 [facility] Comment on above: Performed By: #### B MP, CMREP, LIPID #### [facility] [address] [place] [address] Dr. Jeimy Tenorio Neutrophils/100 WBC (Bld) 64.2 % Normal 43.0-75.0 [facility] Comment on above: Performed By: #### B MP, CMREP, LIPID #### [facility] [address] [place] [address] Dr. Jeimy Tenorio Platelet mean volume (Bld) [Entitic vol] 10.4 fL Normal 9.5-13.5 [facility] Comment on above: Performed By: #### B MP, CMREP, LIPID #### [facility] [address] [address] [address] Jeimy Tenorio PLT 209 103/ul Normal 150-450 [facility] Comment on above: Performed By: #### B MP, CMREP, LIPID #### [facility] [address] [address] [address] Jeimy Tenorio RBC 4.20 106/ul Critically low 4.70-6.10 [facility] Comment on above: Performed By: #### B MP, CMREP, LIPID #### [facility] [address] [place] [address] Dr. Jeimy Tenorio WBC 6.7 103/ul Normal 4.0-11.0 [facility] Comment on above: Performed By: #### B MP, CMREP, LIPID #### [facility] [address] [place] [address] Dr. Jeimy Tenorio DILANTINon 09-29-2022 Phenytoin [Mass/Vol] 23.7 ug/mL Critically high 10.0-20.0 [facility] Comment on above: Performed By: #### C BC #### [facility] [address] [place] [address] Dr. Jeimy Tenorio GLYCOHEMOGLOBIN A1Con 2021 ADA RECOMMENDATION SEE BELOW Normal [facility] Comment on above: Result Comment: ADA RECOMMENDED LIMIT 4.0 - 6.0 ADA THERAPEUTIC TARGET < 7.0 ACTION SUGGESTED > 7.0 Performed By: #### A 1C #### [facility] [address] [place] [address] Dr. Jeimy Tenorio Glucose [Mass/Vol] 105 mg/dL Normal [facility] Comment on above: Performed By: #### A 1C #### [facility] [address] [place] [address] Dr. Jeimy Tenorio HbA1c (Bld) [Mass fraction] 5.3 % Normal 4.5-6.2 [facility] Comment on above: Performed By: #### A 1C #### [facility] [address] [address] [address] Jeimy Tenorio LIPID PROFILEon 09-29-2022 CHOL-HDL RATIO NORM SEE BELOW Normal [facility] Comment on above: Result Comment: 3.3 - 4.4 LOW RISK 4.4 - 7.1 AVERAGE RISK 7.1 - 11.0 MODERATE RISK >11.0 HIGH RISK Performed By: #### B MP, CMREP, LIPID #### [facility] [address] [address] [address] Jeimy Tenorio Cholesterol [Mass/Vol] 178 mg/dL Normal <=200 [facility] Comment on above: Performed By: #### B MP, CMREP, LIPID #### [facility] [address] [address] [address] Jeimy Tenorio Cholesterol in HDL [Mass/Vol] 56 mg/dL Normal 40-60 [facility] Comment on above: Performed By: #### B MP, CMREP, LIPID #### [facility] [address] [address] [address] Jeimy Tenorio Cholesterol in LDL [Mass/Vol] 86.8 mg/dL Normal [facility] Comment on above: Performed By: #### B MP, CMREP, LIPID #### [facility] [address] [address] [address] Jeimy Tenorio Cholesterol.total/Chol esterol in HDL [Mass ratio] 3.2 {ratio} Normal [facility] Comment on above: Performed By: #### B MP, CMREP, LIPID #### [facility] [address] [address] [address] Jeimy Tenorio HDL NORMAL > or = 60 mg/dl - LOW CARDIOVASCULAR RISK <40 mg/dl - HIGH CARDIOVASCULAR RISK Normal [facility] Comment on above: Performed By: #### B MP, CMREP, LIPID #### [facility] [address] [address] [address] Jeimy Tenorio LDL CALC NORMAL SEE BELOW Normal [facility] Comment on above: Result Comment: <100 mg/dl OPTIMAL 100 - 129 mg/dl NEAR OR ABOVE OPTIMAL 130 - 159 mg/dl BORDERLINE HIGH 160 - 189 mg/dl HIGH >190 mg/dl VERY HIGH Performed By: #### B MP, CMREP, LIPID #### [facility] [address] [place] [address] Dr. Jeimy Tenorio Triglyceride [Mass/Vol] 176 mg/dL Critically high <=150 [facility] Comment on above: Performed By: #### B MP, CMREP, LIPID #### [facility] [address] [place] [address] Dr. Jeimy Tenorio VLDL CALC 35.2 mg/dL Normal [facility] Comment on above: Performed By: #### B MP, CMREP, LIPID #### [facility] [address] [place] [address] Dr. Jeimy Tenorio LIVER PROFILEon 09-29-2022 Albumin [Mass/Vol] 3.5 g/dL Normal 3.4-5.0 [facility] Comment on above: Performed By: #### B MP, CMREP, LIPID #### [facility] [address] [place] [address] Dr. Jeimy Tenorio Albumin/Globulin [Mass ratio] 0.8 {ratio} Normal [facility] Comment on above: Performed By: #### B MP, CMREP, LIPID #### [facility] [address] [place] [address] Dr. Jeimy Tenorio ALP [Catalytic activity/Vol] 139 U/L Critically high 46-116 [facility] Comment on above: Performed By: #### B MP, CMREP, LIPID #### [facility] [address] [place] [address] Dr. Jeimy Tenorio ALT [Catalytic activity/Vol] 25 U/L Normal 16-63 [facility] Comment on above: Performed By: #### B MP, CMREP, LIPID #### [facility] [address] [place] [address] Dr. Jeimy Tenorio AST [Catalytic activity/Vol] 23 U/L Normal 15-37 [facility] Comment on above: Performed By: #### B MP, CMREP, LIPID #### [facility] [address] [place] [address] Dr. Jeimy Tenorio BILI, CONJUGATED 0.0 mg/dL Normal 0.0-0.2 [facility] Comment on above: Performed By: #### B MP, CMREP, LIPID #### [facility] [address] [place] [address] Dr. Jeimy Tenorio Bilirubin [Mass/Vol] 0.3 mg/dL Normal 0.2-1.0 [facility] Comment on above: Performed By: #### B MP, CMREP, LIPID #### [facility] [address] [place] [address] Dr. Jeimy Tenorio Globulin (S) [Mass/Vol] 4.3 g/dL Normal [facility] Comment on above: Performed By: #### B MP, CMREP, LIPID #### [facility] [address] [place] [address] Dr. Jeimy Tenorio Protein [Mass/Vol] 7.8 g/dL Normal 6.4-8.2 [facility] Comment on above: Performed By: #### B MP, CMREP, LIPID #### [facility] [address] [place] [address] Dr. Jeimy Tenorio PROF CHEM 8 (BAS METB)on Anion gap [Moles/Vol] 8.7 mmol/L Normal [facility] Comment on above: Performed By: #### B MP, CMREP, LIPID #### [facility] [address] [place] [address] Dr. Jeimy Tenorio Calcium [Mass/Vol] 8.7 mg/dL Normal 8.5-10.1 [facility] Comment on above: Performed By: #### B MP, CMREP, LIPID #### [facility] [address] [place] [address] Dr. Jeimy Tenorio Chloride [Moles/Vol] 104 mmol/L Normal 98-107 [facility] Comment on above: Performed By: #### B MP, CMREP, LIPID #### [facility] [address] [place] [address] Dr. Jeimy Tenorio CO2 [Moles/Vol] 29.8 mmol/L Normal 21.0-32.0 [facility] Comment on above: Performed By: #### B MP, CMREP, LIPID #### [facility] [address] [address] [address] Jeimy Tenorio Creatinine [Mass/Vol] 0.76 mg/dL Normal 0.70-1.30 [facility] Comment on above: Performed By: #### B MP, CMREP, LIPID #### [facility] [address] [address] [address] Jeimy Tenorio EGFR-AF LUXEMBOURGER >60 Normal >=60 [facility] Comment on above: Performed By: #### B MP, CMREP, LIPID #### [facility] [address] [address] [address] Jeimy Tenorio EGFR-NON AF LUXEMBOURGER >60 Normal >=60 [facility] Comment on above: Performed By: #### B MP, CMREP, LIPID #### [facility] [address] [address] [address] Jeimy Tenorio Glucose [Mass/Vol] 95 mg/dL Normal 74-106 [facility] Comment on above: Performed By: #### B MP, CMREP, LIPID #### [facility] [address] [address] [address] Jeimy Tenorio Potassium [Moles/Vol] 4.5 mmol/L Normal 3.5-5.1 [facility] Comment on above: Performed By: #### B MP, CMREP, LIPID #### [facility] [address] [address] [address] Jeimy Tenorio Sodium [Moles/Vol] 138 mmol/L Normal 136-145 [facility] Comment on above: Performed By: #### B MP, CMREP, LIPID #### [facility] [address] [address] [address] Jeimy Tenorio Urea nitrogen [Mass/Vol] 18.0 mg/dL Normal 7.0-18.0 [facility] Comment on above: Performed By: #### B MP, CMREP, LIPID #### [facility] [address] [address] [address] Jeimy Tenorio Urea nitrogen/Creatinine [Mass ratio] 23.7 mg/mg Normal [facility] Comment on above: Performed By: #### B MP, CMREP, LIPID #### [facility] [address] [address] [address] Jeimy Tenorio TSHon 09-29-2022 TSH 1.694 uIU/mL Normal 0.358-3.740 [facility] Comment on above: Performed By: #### B MP, CMREP, LIPID #### [facility] [address] [address] [address] Jeimy Tenorio CARDIAC SAWYER 3-6on 2 CK [Catalytic activity/Vol] 47 U/L Normal 39-308 [facility] Comment on above: Performed By: #### B MP, CMREP, LIPID #### [facility] [address] [place] [address] Dr. Jeimy Tenorio CK.MB [Mass/Vol] 0.77 ng/mL Normal <=3.60 [facility] Comment on above: Performed By: #### B MP, CMREP, LIPID #### [facility] [address] [place] [address] Dr. Jeimy Tenorio HSTROP 6.9 pg/mL Normal 4.0-76.1 [facility] Comment on above: Result Comment: CUT- OFF POINTS HAVE BEEN ESTABLISHED BASED ON THE FOURTH UNIVERSAL DEFINITIONS OF MYOCARDIAL INFARCTION. THE UPPER REFERENCE LIMIT (URL) OF TROPONIN, DEFINED THE 99TH PERCENTILE OF cTnI DISTRIBUTION IN A REFERENCE POPULATION, HAS BEEN CONFIRMED THE DECISION THRESHOLD FOR GA DIAGNOSIS. Performed By: #### B MP, CMREP, LIPID #### [facility] [address] [address] [address] Jeimy Tenorio CK [Catalytic activity/Vol] 53 U/L Normal 39-308 [facility] Comment on above: Performed By: #### C BC #### [facility] [address] [place] [address] Dr. Jeimy Tenorio CK.MB [Mass/Vol] 0.80 ng/mL Normal <=3.60 [facility] Comment on above: Performed By: #### C BC #### [facility] [address] [address] [address] Jeimy Tenorio HSTROP 6.2 pg/mL Normal 4.0-76.1 [facility] Comment on above: Result Comment: CUT- OFF POINTS HAVE BEEN ESTABLISHED BASED ON THE FOURTH UNIVERSAL DEFINITIONS OF MYOCARDIAL INFARCTION. THE UPPER REFERENCE LIMIT (URL) OF TROPONIN, DEFINED THE 99TH PERCENTILE OF cTnI DISTRIBUTION IN A REFERENCE POPULATION, HAS BEEN CONFIRMED THE DECISION THRESHOLD FOR GA DIAGNOSIS. Performed By: #### C BC #### [facility] [address] [place] [address] Dr. Jeimy Tenorio CBC AUTO DIFFon 06-12-2022 BASO # 0.1 103/ul Normal 0.0-0.1 [facility] Comment on above: Performed By: #### C BC #### [facility] [address] [place] [address] Dr. Jeimy Tenorio Basophils/100 WBC (Bld) 0.9 % Normal 0.2-2.0 [facility] Comment on above: Performed By: #### C BC #### [facility] [address] [place] [address] Dr. Jeimy Tenorio EO # 0.3 103/ul Normal 0.0-0.7 [facility] Comment on above: Performed By: #### C BC #### [facility] [address] [place] [address] Dr. Jeimy Tenorio Eosinophils/100 WBC (Bld) 5.2 % Normal 0.9-7.0 [facility] Comment on above: Performed By: #### C BC #### [facility] [address] [place] [address] Dr. Jeimy Tenorio Erythrocyte distribution width (RBC) [Ratio] 13.0 % Normal 11.0-15.0 [facility] Comment on above: Performed By: #### C BC #### [facility] [address] [place] [address] Dr. Jeimy Tenorio Hematocrit (Bld) [Volume fraction] 39.1 % Critically low 42.0-54.0 [facility] Comment on above: Performed By: #### C BC #### [facility] [address] [address] [address] Jeimy Tenorio Hemoglobin (Bld) [Mass/Vol] 13.2 g/dL Critically low 14.0-18.0 [facility] Comment on above: Performed By: #### C BC #### [facility] [address] [address] [address] Jeimy Tenorio IG # 0.03 10e3/ul Normal 0.00-0.03 [facility] Comment on above: Performed By: #### C BC #### [facility] [address] [place] [address] Dr. Jeimy Tenorio IG % 0.5 % Normal 0.0-0.5 [facility] Comment on above: Performed By: #### C BC #### [facility] [address] [place] [address] Dr. Jeimy Tenorio LYMPH # 1.7 103/ul Normal 1.2-3.8 [facility] Comment on above: Performed By: #### C BC #### [facility] [address] [place] [address] Dr. Jeimy Tenorio Lymphocytes/100 WBC (Bld) 26.0 % Normal 20.5-60.0 [facility] Comment on above: Performed By: #### C BC #### [facility] [address] [place] [address] Dr. Jeimy Tenorio MANUAL DIFF REQ NO Normal [facility] Comment on above: Performed By: #### C BC #### [facility] [address] [place] [address] Dr. Jeimy Tenorio MCH (RBC) [Entitic mass] 33.2 pg Normal 25.9-34.0 [facility] Comment on above: Performed By: #### C BC #### [facility] [address] [place] [address] Dr. Jeimy Tenorio MCHC (RBC) [Mass/Vol] 33.8 g/dL Normal 29.9-35.2 [facility] Comment on above: Performed By: #### C BC #### [facility] [address] [address] [address] Jeiym Tenorio MCV (RBC) [Entitic vol] 98.5 fL Critically high 80.0-94.0 [facility] Comment on above: Performed By: #### C BC #### [facility] [address] [address] [address] Jeimy Tenorio MONO # 0.8 103/ul Normal 0.3-0.8 [facility] Comment on above: Performed By: #### C BC #### [facility] [address] [address] [address] Jeimy Tenorio Monocytes/100 WBC (Bld) 12.2 % Critically high 1.7-12.0 [facility] Comment on above: Performed By: #### C BC #### [facility] [address] [place] [address] Dr. Jeimy Tenorio NEUT # 3.6 103/ul Normal 1.4-6.5 [facility] Comment on above: Performed By: #### C BC #### [facility] [address] [address] [address] Jeimy Tenorio Neutrophils/100 WBC (Bld) 55.2 % Normal 43.0-75.0 [facility] Comment on above: Performed By: #### C BC #### [facility] [address] [place] [address] Dr. Jeimy Tenorio Platelet mean volume (Bld) [Entitic vol] 9.9 fL Normal 9.5-13.5 [facility] Comment on above: Performed By: #### C BC #### [facility] [address] [address] [address] Jeimy Tenorio PLT 174 103/ul Normal 150-450 [facility] Comment on above: Performed By: #### C BC #### [facility] [address] [address] [address] Jeimy Tenorio RBC 3.97 106/ul Critically low 4.70-6.10 [facility] Comment on above: Performed By: #### C BC #### [facility] [address] [place], [place] [address] Dr. Jeimy Tenorio WBC 6.5 103/ul Normal 4.0-11.0 [facility] Comment on above: Performed By: #### C #### [facility] [address] [place], [place] [address] Dr. Jeimy Tenorio CTA CHEST WO W [...] MAMIE ALFORD Date: 2022-06-12 00:21 Normal [facility] Covid-19 PCR (CVDTBH)on 05-22 SARS-CoV-2 (COVID-19) RNA ALEX+probe Ql (Unsp spec) Not detected Normal NOT DETECTED [facility] Comment on above: Result Comment: When [...] for this test is supported by the Quality Assurance Calibrator of Health and Human Service's declaration that [...] By: #### B MP, CMREP, LIPID #### [facility] [address] [place] [address] Dr. Jeimy Tenorio ER URINE PROFILEon 2 Bilirubin Ql (U) Negative Normal NEGATIVE [facility] Comment on above: Performed By: #### E RUR #### [facility] [address] [place] [address] Dr. Jeimy Tenorio Clarity (U) CLEAR Normal CLEAR [facility] Comment on above: Performed By: #### E RUR #### [facility] [address] [place] [address] Dr. Jeimy Tenorio Color (U) LT. YELLOW Normal YELLOW [facility] Comment on above: Performed By: #### E RUR #### [facility] [address] [place] [address] Dr. Jeimy Tenorio ERUAHD A micrscopic examination will be performed if indicated. Normal [facility] Comment on above: Performed By: #### E RUR #### [facility] [address] [place] [address] Dr. Jeimy Tenorio Glucose Ql (U) Negative Normal NEGATIVE [facility] Comment on above: Performed By: #### E RUR #### [facility] [address] [place] [address] Dr. Jeimy Tenorio Hemoglobin Ql (U) Negative Normal NEGATIVE [facility] Comment on above: Performed By: #### E RUR #### [facility] [address] [place] [address] Dr. Jeimy Tenorio Ketones Ql (U) TRACE Abnormal NEGATIVE [facility] Comment on above: Performed By: #### E RUR #### [facility] [address] [place] [address] Dr. Jeimy Tenorio LEUKOCYTES Negative Normal NEGATIVE [facility] Comment on above: Performed By: #### E RUR #### [facility] [address] [place] [address] Dr. Jeimy Tenorio Nitrite Ql (U) Negative Normal NEGATIVE [facility] Comment on above: Performed By: #### E RUR #### [facility] [address] [place] [address] Dr. Jeimy Tenorio pH (U) 5.5 [pH] Normal 5-9 [facility] Comment on above: Performed By: #### E RUR #### [facility] [address] [place] [address] Dr. Jeimy Tenorio SPEC GRAVITY 1.010 Normal 1.005-<=1.02 5 [facility] Comment on above: Performed By: #### E RUR #### [facility] [address] [place] [address] Dr. Jeimy Tenorio UA PROTEIN Negative Normal NEGATIVE/ TRACE [facility] Comment on above: Performed By: #### E RUR #### [facility] [address] [place] [address] Dr. Jeimy Tenorio UR MICRO IND NOT INDICATED Normal [facility] Comment on above: Performed By: #### E RUR #### [facility] [address] [place] [address] Dr. Jeimy Tenorio Urobilinogen Qn (U) 0.2 {Raphael'U}/dL Normal 0.2 - 1. 0 [facility] Comment on above: Performed By: #### E RUR #### [facility] [address] [place] [address] Dr. Jeimy Tenorio GLYCOHEMOGLOBIN A1Con 07-23- 2022 ADA RECOMMENDATION SEE BELOW Normal [facility] Comment on above: Result Comment: ADA RECOMMENDED LIMIT 4.0 - 6.0 ADA THERAPEUTIC TARGET < 7.0 ACTION SUGGESTED > 7.0 Performed By: #### C BC #### [facility] [address] [address] [address] Jeimy Tenorio Glucose [Mass/Vol] 103 mg/dL Normal [facility] Comment on above: Performed By: #### C BC #### [facility] [address] [place] [address] Dr. Jeimy Tenorio HbA1c (Bld) [Mass fraction] 5.2 % Normal 4.5-6.2 [facility] Comment on above: Performed By: #### C BC #### [facility] [address] [place] [address] Dr. Jeimy Tenorio LIPID PROFILEon 06-12-2022 CHOL-HDL RATIO NORM SEE BELOW Normal [facility] Comment on above: Result Comment: 3.3 - 4.4 LOW RISK 4.4 - 7.1 AVERAGE RISK 7.1 - 11.0 MODERATE RISK >11.0 HIGH RISK Performed By: #### B MP, CMREP, LIPID #### [facility] [address] [place] [address] Dr. Jeimy Tenorio Cholesterol [Mass/Vol] 142 mg/dL Normal <=200 [facility] Comment on above: Performed By: #### B MP, CMREP, LIPID #### [facility] [address] [place] [address] Dr. Jeimy Tenorio Cholesterol in HDL [Mass/Vol] 49 mg/dL Normal 40-60 [facility] Comment on above: Performed By: #### B MP, CMREP, LIPID #### [facility] [address] [place] [address] Dr. Jeimy Tenorio Cholesterol in LDL [Mass/Vol] 64.6 mg/dL Normal [facility] Comment on above: Performed By: #### B MP, CMREP, LIPID #### [facility] [address] [place] [address] Dr. Jeimy Tenorio Cholesterol.total/Chol esterol in HDL [Mass ratio] 2.9 {ratio} Normal [facility] Comment on above: Performed By: #### B MP, CMREP, LIPID #### [facility] [address] [address] [address] Jeimy Tenorio HDL NORMAL > or = 60 mg/dl - LOW CARDIOVASCULAR RISK <40 mg/dl - HIGH CARDIOVASCULAR RISK Normal [facility] Comment on above: Performed By: #### B MP, CMREP, LIPID #### [facility] [address] [address] [address] Jeimy Tenorio LDL CALC NORMAL SEE BELOW Normal [facility] Comment on above: Result Comment: <100 mg/dl OPTIMAL 100 - 129 mg/dl NEAR OR ABOVE OPTIMAL 130 - 159 mg/dl BORDERLINE HIGH 160 - 189 mg/dl HIGH >190 mg/dl VERY HIGH Performed By: #### B MP, CMREP, LIPID #### [facility] [address] [address] [address] Jeimy Tenorio Triglyceride [Mass/Vol] 142 mg/dL Normal <=150 [facility] Comment on above: Performed By: #### B MP, CMREP, LIPID #### [facility] [address] [address] [address] Jeimy Tenorio VLDL CALC 28.4 mg/dL Normal [facility] Comment on above: Performed By: #### B MP, CMREP, LIPID #### [facility] [address] [address] [address] Jeimy Tenorio PROF CHEM 8 (BAS METB)on Anion gap [Moles/Vol] 10.1 mmol/L Normal [facility] Comment on above: Performed By: #### B MP, CMREP, LIPID #### [facility] [address] [place] [address] Dr. Jeimy Tenorio Calcium [Mass/Vol] 8.0 mg/dL Critically low 8.5-10.1 [facility] Comment on above: Performed By: #### B MP, CMREP, LIPID #### [facility] [address] [place] [address] Dr. Jeimy Tenorio Chloride [Moles/Vol] 104 mmol/L Normal 98-107 [facility] Comment on above: Performed By: #### B MP, CMREP, LIPID #### [facility] [address] [address] [address] Jeimy Tenorio CO2 [Moles/Vol] 27.0 mmol/L Normal 21.0-32.0 [facility] Comment on above: Performed By: #### B MP, CMREP, LIPID #### [facility] [address] [address] [address] Jeimy Tenorio Creatinine [Mass/Vol] 0.79 mg/dL Normal 0.70-1.30 [facility] Comment on above: Performed By: #### B MP, CMREP, LIPID #### [facility] [address] [place] [address] Dr. Jeimy Tenorio EGFR-AF LUXEMBOURGER >60 Normal >=60 [facility] Comment on above: Performed By: #### B MP, CMREP, LIPID #### [facility] [address] [place] [address] Dr. Jeimy Tenorio EGFR-NON AF LUXEMBOURGER >60 Normal >=60 [facility] Comment on above: Performed By: #### B MP, CMREP, LIPID #### [facility] [address] [place] [address] Dr. Jeimy Tenorio Glucose [Mass/Vol] 101 mg/dL Normal 74-106 [facility] Comment on above: Performed By: #### B MP, CMREP, LIPID #### [facility] [address] [address] [address] Jeimy Tenorio Potassium [Moles/Vol] 4.1 mmol/L Normal 3.5-5.1 [facility] Comment on above: Performed By: #### B MP, CMREP, LIPID #### [facility] [address] [place] [address] Dr. Jeimy Tenorio Sodium [Moles/Vol] 137 mmol/L Normal 136-145 [facility] Comment on above: Performed By: #### B MP, CMREP, LIPID #### [facility] [address] [address] [address] Jeimy Tenorio Urea nitrogen [Mass/Vol] 15.0 mg/dL Normal 7.0-18.0 [facility] Comment on above: Performed By: #### B MP, CMREP, LIPID #### [facility] [address] [place] [address] Dr. Jeimy Tenorio Urea nitrogen/Creatinine [Mass ratio] 19.0 mg/mg Normal [facility] Comment on above: Performed By: #### B MP, CMREP, LIPID #### [facility] [address] [place] [address] Dr. Jeimy Tenorio CARDIAC SAWYER ADMITon 022 CK [Catalytic activity/Vol] 50 U/L Normal 39-308 [facility] Comment on above: Performed By: #### C BC #### [facility] [address] [place] [address] Dr. Jeimy Tenorio CK.MB [Mass/Vol] 0.80 ng/mL Normal <=3.60 [facility] Comment on above: Performed By: #### C BC #### [facility] [address] [place] [address] Dr. Jeimy Tenorio HSTROP 5.2 pg/mL Normal 4.0-76.1 [facility] Comment on above: Result Comment: CUT- OFF POINTS HAVE BEEN ESTABLISHED BASED ON THE FOURTH UNIVERSAL DEFINITIONS OF MYOCARDIAL INFARCTION. THE UPPER REFERENCE LIMIT (URL) OF TROPONIN, DEFINED THE 99TH PERCENTILE OF cTnI DISTRIBUTION IN A REFERENCE POPULATION, HAS BEEN CONFIRMED THE DECISION THRESHOLD FOR GA DIAGNOSIS. Performed By: #### C BC #### [facility] [address] [place] [address] Dr. Jeimy Tenorio MAGALIE 41 ng/mL Normal 16-96 [facility] Comment on above: Performed By: #### C BC #### [facility] [address] [place] [address] Dr. Jeimy Tenorio CBC AUTO DIFFon 06-11-2022 BASO # 0.0 103/ul Normal 0.0-0.1 [facility] Comment on above: Performed By: #### C BC #### [facility] [address] [place] [address] Dr. Jeimy Tenorio Basophils/100 WBC (Bld) 0.6 % Normal 0.2-2.0 [facility] Comment on above: Performed By: #### C BC #### [facility] [address] [place] [address] Dr. Jeimy Tenorio EO # 0.4 103/ul Normal 0.0-0.7 [facility] Comment on above: Performed By: #### C BC #### [facility] [address] [place] [address] Dr. Jeimy Tenorio Eosinophils/100 WBC (Bld) 4.9 % Normal 0.9-7.0 [facility] Comment on above: Performed By: #### C BC #### [facility] [address] [place] [address] Dr. Jeimy Tenorio Erythrocyte distribution width (RBC) [Ratio] 13.1 % Normal 11.0-15.0 [facility] Comment on above: Performed By: #### C BC #### [facility] [address] [place] [address] Dr. Jeimy Tenorio Hematocrit (Bld) [Volume fraction] 38.1 % Critically low 42.0-54.0 [facility] Comment on above: Performed By: #### C BC #### [facility] [address] [place] [address] Dr. Jeimy Tenorio Hemoglobin (Bld) [Mass/Vol] 13.0 g/dL Critically low 14.0-18.0 [facility] Comment on above: Performed By: #### C BC #### [facility] [address] [place] [address] Dr. Jeimy Tenorio IG # 0.02 10e3/ul Normal 0.00-0.03 [facility] Comment on above: Performed By: #### C BC #### [facility] [address] [place] [address] Dr. Jeimy Tenorio IG % 0.3 % Normal 0.0-0.5 [facility] Comment on above: Performed By: #### C BC #### [facility] [address] [place] [address] Dr. Jeimy Tenorio LYMPH # 1.7 103/ul Normal 1.2-3.8 [facility] Comment on above: Performed By: #### C BC #### [facility] [address] [place] [address] Dr. Jeimy Tenorio Lymphocytes/100 WBC (Bld) 22.9 % Normal 20.5-60.0 [facility] Comment on above: Performed By: #### C BC #### [facility] [address] [place] [address] Dr. Jeimy Tenorio MANUAL DIFF REQ NO Normal [facility] Comment on above: Performed By: #### C BC #### [facility] [address] [place] [address] Dr. Jeimy Tenorio MCH (RBC) [Entitic mass] 33.5 pg Normal 25.9-34.0 [facility] Comment on above: Performed By: #### C BC #### [facility] [address] [place] [address] Dr. Jeimy Tenorio MCHC (RBC) [Mass/Vol] 34.1 g/dL Normal 29.9-35.2 [facility] Comment on above: Performed By: #### C BC #### [facility] [address] [place] [address] Dr. Jeimy Tenorio MCV (RBC) [Entitic vol] 98.2 fL Critically high 80.0-94.0 [facility] Comment on above: Performed By: #### C BC #### [facility] [address] [place] [address] Dr. Jeimy Tenorio MONO # 0.8 103/ul Normal 0.3-0.8 [facility] Comment on above: Performed By: #### C BC #### [facility] [address] [place] [address] Dr. Jeimy Tenorio Monocytes/100 WBC (Bld) 11.5 % Normal 1.7-12.0 [facility] Comment on above: Performed By: #### C BC #### [facility] [address] [place] [address] Dr. Jeimy Tenorio NEUT # 4.3 103/ul Normal 1.4-6.5 [facility] Comment on above: Performed By: #### C BC #### [facility] [address] [place] [address] Dr. Jeimy Tenorio Neutrophils/100 WBC (Bld) 59.8 % Normal 43.0-75.0 [facility] Comment on above: Performed By: #### C BC #### [facility] [address] [place] [address] Dr. Jeimy Tenorio Platelet mean volume (Bld) [Entitic vol] 9.8 fL Normal 9.5-13.5 [facility] Comment on above: Performed By: #### C BC #### [facility] [address] [place] [address] Dr. Jemiy Tenorio PLT 181 103/ul Normal 150-450 [facility] Comment on above: Performed By: #### C BC #### [facility] [address] [place] [address] Dr. Jeimy Tenorio RBC 3.88 106/ul Critically low 4.70-6.10 [facility] Comment on above: Performed By: #### C BC #### [facility] [address] [place] [address] Dr. Jeimy Tenorio WBC 7.2 103/ul Normal 4.0-11.0 [facility] Comment on above: Performed By: #### C BC #### [facility] [address] [place], [place] [id number] Dr. Jeimy Tenorio D-DIMERon 06-11-2022 D-DIMER 0.63 mg/L FEU Critically high <=0.59 [facility] Comment on above: Performed By: #### D DIM #### [facility] [address] [place] [address] Dr. Jeimy Tenorio D-DIMER COMMENTS SEE BELOW Normal [facility] Comment on above: Result Comment: Incr [...] hospitalization. Performed By: #### D DIM #### [facility] [address] [place] [address] Dr. Jeimy Tenorio PROF 14(COMP METB)on 022 Albumin [Mass/Vol] 3.3 g/dL Critically low 3.4-5.0 [facility] Comment on above: Performed By: #### C BC #### [facility] [address] [place] [address] Dr. Jeimy Tenorio Albumin/Globulin [Mass ratio] 0.8 {ratio} Normal [facility] Comment on above: Performed By: #### C BC #### [facility] [address] [place] [address] Dr. Jeimy Tenorio ALP [Catalytic activity/Vol] 160 U/L Critically high 46-116 [facility] Comment on above: Performed By: #### C BC #### [facility] [address] [place] [address] Dr. Jeimy Tenorio ALT [Catalytic activity/Vol] 26 U/L Normal 16-63 [facility] Comment on above: Performed By: #### C BC #### [facility] [address] [place] [address] Dr. Jeimy Tenorio Anion gap [Moles/Vol] 10.4 mmol/L Normal [facility] Comment on above: Performed By: #### C BC #### [facility] [address] [place] [address] Dr. Jeimy Tenorio AST [Catalytic activity/Vol] 16 U/L Normal 15-37 [facility] Comment on above: Performed By: #### C BC #### [facility] [address] [place] [address] Dr. Jeimy Tenorio Bilirubin [Mass/Vol] 0.2 mg/dL Normal 0.2-1.0 [facility] Comment on above: Performed By: #### C BC #### [facility] [address] [address] [address] Jeimy Tenorio Calcium [Mass/Vol] 8.2 mg/dL Critically low 8.5-10.1 [facility] Comment on above: Performed By: #### C BC #### [facility] [address] [address] [address] Jeimy Tenorio Chloride [Moles/Vol] 105 mmol/L Normal 98-107 [facility] Comment on above: Performed By: #### C BC #### [facility] [address] [place] [address] Dr. Jeimy Tenorio CO2 [Moles/Vol] 26.5 mmol/L Normal 21.0-32.0 [facility] Comment on above: Performed By: #### C BC #### [facility] [address] [place] [address] Dr. Jeimy Tenorio Creatinine [Mass/Vol] 0.96 mg/dL Normal 0.70-1.30 [facility] Comment on above: Performed By: #### C BC #### [facility] [address] [place] [address] Dr. Jeimy Tenorio EGFR-AF LUXEMBOURGER >60 Normal >=60 [facility] Comment on above: Performed By: #### C BC #### [facility] [address] [place] [address] Dr. Jeimy Tenorio EGFR-NON AF LUXEMBOURGER >60 Normal >=60 [facility] Comment on above: Performed By: #### C BC #### [facility] [address] [place] [address] Dr. Jeimy Tenorio Globulin (S) [Mass/Vol] 4.0 g/dL Normal [facility] Comment on above: Performed By: #### C BC #### [facility] [address] [place] [address] Dr. Jeimy Tenorio Glucose [Mass/Vol] 140 mg/dL Critically high 74-106 [facility] Comment on above: Performed By: #### C BC #### [facility] [address] [place] [address] Dr. Jeimy Tenorio Potassium [Moles/Vol] 3.9 mmol/L Normal 3.5-5.1 [facility] Comment on above: Performed By: #### C BC #### [facility] [address] [address] [address] Jeimy Tenorio Protein [Mass/Vol] 7.3 g/dL Normal 6.4-8.2 [facility] Comment on above: Performed By: #### C BC #### [facility] [address] [address] [address] Jeimy Tenorio Sodium [Moles/Vol] 138 mmol/L Normal 136-145 [facility] Comment on above: Performed By: #### C BC #### [facility] [address] [address] [address] Jeimy Tenorio Urea nitrogen [Mass/Vol] 15.0 mg/dL Normal 7.0-18.0 [facility] Comment on above: Performed By: #### C BC #### [facility] [address] [address] [address] Jeimy Tenorio Urea nitrogen/Creatinine [Mass ratio] 15.6 mg/mg Normal [facility] Comment on above: Performed By: #### C BC #### [facility] [address] [place] [address] Dr. Jeimy Tenorio R[employer] [facility] 10-30-2021 Albumin [Mass/Vol] 4.3 g/dL Normal 3.6-5.1 [facility] Comment on above: Performed By: #### 7 13, 7980, 18864 #### [facility] [address] [address] Sales And Service Advisor: Yash Campuzano MD Albumin/Globulin [Mass ratio] 1.3 {ratio} Normal 1.0-2.5 [facility] Comment on above: Performed By: #### 7 13, 6560, 50018 #### [facility] [address], [address] [place], [place] [id number] [employer] Service Advisor: Yash Campuzano MD ALP [Catalytic activity/Vol] 152 U/L High 35-144 [facility] Comment on above: Performed By: #### 7 13, 7600, 58903 #### [facility] of [address], [address] [place] [address] Sales And Service Advisor: Yash Campuzano MD ALT [Catalytic activity/Vol] 30 U/L Normal 9-46 [facility] Comment on above: Performed By: #### 7 13, 7600, 28102 #### [facility] of [address], [address] [place] [address] Sales And Service Advisor: Yash Campuzano MD AST [Catalytic activity/Vol] 26 U/L Normal 10-35 [facility] Comment on above: Performed By: #### 7 13, 7599, 31076 #### [facility] [address], [address] [place] [address] Sales And Service Advisor: Yash Campuzano MD Bilirubin [Mass/Vol] 0.4 mg/dL Normal 0.2-1.2 [facility] Comment on above: Performed By: #### 7 13, 7599, 85529 #### [facility] [address], [address] [place] [address] Sales And Service Advisor: Yash Campuzano MD BUN/CREATININE RATIO NOT APPLICABLE Normal 6-22 [facility] Comment on above: Performed By: #### 7 13, 0, 47729 #### [facility] [address], [address] [place] [address] Sales And Service Advisor: Yash Campuzano MD Calcium [Mass/Vol] 8.8 mg/dL Normal 8.6-10.3 [facility] Comment on above: Performed By: #### 7 13, 0, 55069 #### [facility] [address], [address] [place] [address] Sales And Service Advisor: Yash Campuzano MD Chloride [Moles/Vol] 104 mmol/L Normal 98-110 [facility] Comment on above: Performed By: #### 7 13, 7600, 93677 #### [facility] [address], [address] [place] [address] Sales And Service Advisor: Yash Campuzano MD CO2 [Moles/Vol] 25 mmol/L Normal 20-32 [facility] Comment on above: Performed By: #### 7 , 0, 92384 #### [facility] [address] [address] Sales And Service Advisor: Yash Campuzano MD Creatinine [Mass/Vol] 0.76 mg/dL Normal 0.70-1.25 [facility] Comment on above: Result Comment: For patients >49 years of age, the reference limit for Creatinine is approximately 13% higher for people identified as -Somali. Performed By: #### 7 , 7599, 82377 #### [facility] [address] [address] Sales And Service Advisor: Yash Campuzano MD eGFR NON-AFR. LUXEMBOURGER 95 mL/min/1.73m2 Normal > OR = 60 [facility] Comment on above: Performed By: #### 7 , 7599, 51005 #### [facility] [address] [address] Sales And Service Advisor: Yash Campuzano MD GFR/1.73 sq M.predicted among blacks MDRD (S/P/Bld) [Vol rate/Area] 110 mL/min/{1.73_m2} Normal > OR = 60 [facility] Comment on above: Performed By: #### 7 , 7599, 11123 #### [facility] [address] [address] Sales And Service Advisor: Yash Campuzano MD Globulin (S) [Mass/Vol] 3.2 g/dL Normal 1.9-3.7 [facility] Comment on above: Performed By: #### 7 , 7599, 16689 #### [facility] [address] [place] [address] Sales And Service Advisor: Yash Campuzano MD Glucose [Mass/Vol] 103 mg/dL High 65-99 [facility] Comment on above: Result Comment: Fasting reference interval For someone without known diabetes, a glucose value between 100 and 125 mg/dL is consistent with prediabetes and should be confirmed with a follow-up test. Performed By: #### 7 13, 0, 91318 #### [facility] [address] [place] [address] Sales And Service Advisor: Yash Campuzano MD Potassium [Moles/Vol] 4.7 mmol/L Normal 3.5-5.[address] [facility] Comment on above: Performed By: #### 7 13, 7599, 56581 #### [facility] [address] [place] [address] Sales And Service Advisor: Yash Campuzano MD Protein [Mass/Vol] 7.5 g/dL Normal 6.1-8.1 [facility] Comment on above: Performed By: #### 7 13, 7599, 21915 #### [facility] [address] [place] [address] Sales And Service Advisor: Yash Campuzano MD Sodium [Moles/Vol] 137 mmol/L Normal 135-146 [facility] Comment on above: Performed By: #### 7 13, 7599, 00090 #### [facility] [place] [address] Sales And Service Advisor: Yash Campuzano MD Urea nitrogen [Mass/Vol] 15 mg/dL Normal 7-25 [facility] Comment on above: Performed By: #### 7 13, 7599, 53654 #### [facility] [address] [place] [address] Sales And Service Advisor: Yash Campuzano MD LIPID PANEL, [facility] 12- Cholesterol [Mass/Vol] 180 mg/dL Normal <200 [facility] Comment on above: Order Comment: FASTI NG:YES FASTING: YES Performed By: #### 7 13, 760, 14473 #### [facility] of [address] [address] Sales And Service Advisor: Yash Campuzano MD Cholesterol in HDL [Mass/Vol] 50 mg/dL Normal > OR = 40 [facility] Comment on above: Order Comment: FASTI NG:YES FASTING: YES Performed By: #### 7 , 7599, 12826 #### [facility] [address], [address] [place] [address] Sales And Service Advisor: Yash Campuzano MD Cholesterol in LDL [Mass/Vol] [...] LDL-C. Gennaro SS et al. KO. 2013;310(19): 4749-9678 (http://education.Reclip.It/faq/[email or web address]) Performed By: #### 7 , 7599, 05690 #### [facility] [address], [address] [place] [address] Sales And Service Advisor: Yash Campuzano MD Cholesterol.total/Chol esterol in HDL [Mass ratio] 3.6 {ratio} Normal <5.0 [facility] Comment on above: Order Comment: FASTI NG:YES FASTING: YES Performed By: #### 7 , 7599, 49838 #### [facility] [address], [address] [place] [address] Sales And Service Advisor: Yash Campuzano MD NON HDL CHOLESTEROL 130 mg/dL (calc) High <130 [facility] Comment on above: Order Comment: FASTI NG:YES FASTING: YES Result Comment: For patients with diabetes plus 1 major ASCVD risk factor, treating to a non-HDL-C goal of <100 mg/dL (LDL-C of <70 mg/dL) is considered a therapeutic option. Performed By: #### 7 , 345, 90913 #### [facility] [address], [address] [place] [address] Sales And Service Advisor: Yash Campuzano MD Triglyceride [Mass/Vol] 280 mg/dL High <150 [facility] Comment on above: Order Comment: FASTI NG:YES FASTING: YES Result Comment: If a non-fasting specimen was collected, consider repeat triglyceride testing on a fasting specimen if clinically indicated. Marquise et al. J. of Clin. Lipidol. 2015;9:129-169. Performed By: #### 7 13, 7600, 06716 #### [facility] [place] [address] Sales And Service Advisor: Yash Campuzano MD PHENYTOINon 10-30-2021 Phenytoin [Mass/Vol] 18.9 ug/mL Normal 10.0-20.0 [facility] Comment on above: Performed By: #### 7 13, 7600, 60807 #### [facility] [place] [address] Sales And Service Advisor: Yash Campuzano MD CBC (INCLUDES DIFF/PLT)on Basophils (Bld) [#/Vol] 0.071 10*3/uL Normal 0-200 [facility] Comment on above: Performed By: #### 7 13, 7600, 6399 #### [facility] [address], [address] [place] [address] Sales And Service Advisor: Yash Campuzano MD Basophils/100 WBC (Bld) 1.2 % Normal [facility] Comment on above: Performed By: #### 7 13, 7600, 6399 #### [facility] [place] [address] Sales And Service Advisor: Yash Campuzano MD Eosinophils (Bld) [#/Vol] 0.277 10*3/uL Normal 15-500 [facility] Comment on above: Performed By: #### 7 13, 7600, 6399 #### [facility] [place] [address] Sales And Service Advisor: Yash Campuzano MD Eosinophils/100 WBC (Bld) 4.7 % Normal [facility] Comment on above: Performed By: #### 7 13, 7600, 6399 #### [facility] [address] Sales And Service Advisor: Yash Campuzano MD Erythrocyte distribution width (RBC) [Ratio] 12.8 % Normal 11.0-15.0 [facility] Comment on above: Performed By: #### 7 , 7599, 6399 #### [facility] [place] [address] Sales And Service Advisor: Yash Campuzano MD Hematocrit (Bld) [Volume fraction] 42.1 % Normal 38.5-50.0 [facility] Comment on above: Performed By: #### 7 , 7599, 6399 #### [facility] [place] [address] Sales And Service Advisor: Yash Campuzano MD Hemoglobin (Bld) [Mass/Vol] 14.9 g/dL Normal 13.2-17.1 [facility] Comment on above: Performed By: #### 7 , 7599, 6399 #### [facility] [place] [address] Sales And Service Advisor: Yash Campuzano MD Lymphocytes (Bld) [#/Vol] 1.068 10*3/uL Normal 850-3900 [facility] Comment on above: Performed By: #### 7 , 7599, 6399 #### [facility] [place] [address] Sales And Service Advisor: Yash Campuzano MD Lymphocytes/100 WBC (Bld) 18.1 % Normal [facility] Comment on above: Performed By: #### 7 , 7599, 6399 #### [facility] [place] [address] Sales And Service Advisor: Yash Campuzano MD MCH (RBC) [Entitic mass] 32.9 pg Normal 27.0-33.0 [facility] Comment on above: Performed By: #### 7 , 7599, 6399 #### [facility] [place] [address] Sales [employer] Service Advisor: Yash Campuzano MD MCHC (RBC) [Mass/Vol] 35.4 g/dL Normal 32.0-36.[address] [facility] Comment on above: Performed By: #### 7 13, 7599, 6399 #### [facility] [place] [address] Sales And Service Advisor: Yash Campuzano MD MCV (RBC) [Entitic vol] 92.9 fL Normal 80.0-100.0 [facility] Comment on above: Performed By: #### 7 13, 7599, 6399 #### [facility] [place] [address] Sales And Service Advisor: Yash Campuzano MD Monocytes (Bld) [#/Vol] 0.531 10*3/uL Normal 200-950 [facility] Comment on above: Performed By: #### 7 13, 7599, 6399 #### [facility] [place] [address] Sales And Service Advisor: Yash Campuzano MD Monocytes/100 WBC (Bld) 9.0 % Normal [facility] Comment on above: Performed By: #### 7 13, 7599, 6399 #### [facility] [place] [address] Sales And Service Advisor: Yash Campuzano MD Neutrophils (Bld) [#/Vol] 3.953 10*3/uL Normal 6460-8625 [facility] Comment on above: Performed By: #### 7 13, 7599, 6399 #### [facility] [place] [address] Sales And Service Advisor: Yash Campuzano MD Neutrophils/100 WBC (Bld) 67 % Normal [facility] Comment on above: Performed By: #### 7 13, 7599, 6399 #### [facility] [place] [address] Sales And Service Advisor: Yash Campuzano MD Platelet mean volume (Bld) [Entitic vol] 11.0 fL Normal 7.5-12.5 [facility] Comment on above: Performed By: #### 7 13, 7599, 6399 #### [facility] of [address], [address] [place] [address] Sales And Service Advisor: Yash Campuzano MD Platelets (Bld) [#/Vol] 200 10*3/uL Normal 140-400 [facility] Comment on above: Performed By: #### 7 13, 7599, 6399 #### [facility] of [address], [address] [place] [address] Sales And Service Advisor: Yash Campuzano MD RBC (Bld) [#/Vol] 4.53 10*6/uL Normal 4.20-5.80 [facility] Comment on above: Performed By: #### 7 13, 7599, 6399 #### [facility] [address], [address] [place] [address] Sales And Service Advisor: Yash Campuzano MD WBC (Bld) [#/Vol] 5.9 10*3/uL Normal 3.8-10.8 [facility] Comment on above: Performed By: #### 7 13, 7599, 6399 #### [facility] [address], [address] [place] [address] Sales And Service Advisor: Yash Campuzano MD LIPID PANEL, [address] Cholesterol [Mass/Vol] 218 mg/dL High <200 [facility] Comment on above: Order Comment: FASTI NG:YES FASTING: YES Performed By: #### 7 13, 7599, 6399 #### [facility] [address], [address] [place] [address] Sales And Service Advisor: Yash Campuzano MD Cholesterol in HDL [Mass/Vol] 55 mg/dL Normal > OR = 40 [facility] Comment on above: Order Comment: FASTI NG:YES FASTING: YES Performed By: #### 7 13, 760, 6399 #### [facility] of [address], [address] [place] [address] Sales And Service Advisor: Yash Campuzano MD Cholesterol in LDL [Mass/Vol] [...] LDL-C. Gennaro SS et al. KO. 2013;310(19): 6966-0536 (http://education.Reclip.It/faq/FNE506) Performed By: #### 7 , 3640, 3999 #### [facility] [address], [address] [place] [address] Sales And Service Advisor: Yash Campuzano MD Cholesterol.total/Chol esterol in HDL [Mass ratio] 4.0 {ratio} Normal <5.0 [facility] Comment on above: Order Comment: FASTI NG:YES FASTING: YES Performed By: #### 7 , 340, 9752 #### [facility] [address], [address] [place] [address] Sales And Service Advisor: Yash Campuzano MD NON HDL CHOLESTEROL 163 mg/dL (calc) High <130 [facility] Comment on above: Order Comment: FASTI NG:YES FASTING: YES Result Comment: For patients with diabetes plus 1 major ASCVD risk factor, treating to a non-HDL-C goal of <100 mg/dL (LDL-C of <70 mg/dL) is considered a therapeutic option. Performed By: #### 7 , 187, 3899 #### [facility] [address], [address] [place] [address] Sales And Service Advisor: Yash Campuzano MD Triglyceride [Mass/Vol] 200 mg/dL High <150 [facility] Comment on above: Order Comment: FASTI NG:YES FASTING: YES Result Comment: If a non-fasting specimen was collected, consider repeat triglyceride testing on a fasting specimen if clinically indicated. Marquise et al. J. of Clin. Lipidol. 2015;9:129-169. Performed By: #### 7 , 4636, 6399 #### [facility] [address], [address] [place] [address] Sales And Service Advisor: Yash Campuzano MD PHENYTOINon 04-18-2021 Phenytoin [Mass/Vol] 25.0 ug/mL High 10.0-20.0 Ques t [facility] Comment on above: Performed By: #### 7 13, 7730, 6399 #### [facility] [address], [address] [place] [address] Sales And Service Advisor: Yash Campuzano MD APTTon 11-20-2020 aPTT Coag (Bld) [Time] 33.4 s Normal 25.0-35.0 Th [facility] Comment on above: Result Comment: ALL [...] THIS PURPOSE. Performed By: #### 5 6101, 81824 ####[facility] BNP EDon 11-20-2020 Natriuretic peptide B (Bld) [Mass/Vol] 111 pg/mL High 0-100 [facility] Comment on above: Result Comment: Give n the appropriate clinical setting a BNP result of >100 pg/mL indicates congestive heart failure. Performed By: #### 3 0935 #### [facility] [address] CBC W/DIFFon 11-20-2020 ABS IMM GRANS 0.0 10*3/uL Normal 0.0-0.2 The [facility] Comment on above: Performed By: #### 5 0103 ####[facility] ABS NEUTROPHILS 3.9 10*3/uL Normal 1.6-7.6 The [facility] Comment on above: Performed By: #### 5 0103 ####[facility] [place] [address], [facility] Basophils (Bld) [#/Vol] 0.1 10*3/uL Normal 0.0-0.2 The [facility] Comment on above: Performed By: #### 5 0103 ####[facility] [place] [address], [facility] Basophils/100 WBC (Bld) 1.0 % Normal 0.0-1.0 The [facility] Comment on above: Performed By: #### 5 0103 ####[facility] [facility] [place] [address], [facility] Eosinophils (Bld) [#/Vol] 0.3 10*3/uL Normal 0.0-0.5 The [facility] Comment on above: Performed By: #### 5 0103 ####[facility] [place] [address], [facility] Eosinophils/100 WBC (Bld) 5.1 % Normal 0.0-6.0 [facility] Comment on above: Performed By: #### 5 0103 ####[facility] [facility] Erythrocyte distribution width (RBC) [Ratio] 13.1 % Normal 11.5-15.0 [facility] Comment on above: Performed By: #### 5 3 ####[facility] [facility] [place] [address], [facility] Hematocrit (Bld) [Volume fraction] 45.4 % Normal 39.0-50.0 The [facility] Comment on above: Performed By: #### 5 3 ####[facility] [place] [address], [facility] Hemoglobin (Bld) [Mass/Vol] 14.8 g/dL Normal 13.0-17.0 [facility] Comment on above: Performed By: #### 5 0103 ####[facility] IMMATURE GRANS 0.3 % Normal 0.0-1.[address] [facility] Comment on above: Performed By: #### 5 0103 ####[facility] Lymphocytes (Bld) [#/Vol] 1.0 10*3/uL Low 1.2-4.0 The [facility] Comment on above: Performed By: #### 5 0103 ####[address] Lymphocytes/100 WBC (Bld) 17.5 % Low 20.0-45.0 The [facility] Comment on above: Performed By: #### 5 0103 ####[address] MCH (RBC) [Entitic mass] 32.5 pg Normal 27.0-33.0 The [facility] Comment on above: Performed By: #### 5 0103 ####[place] [id number] [address] MCHC (RBC) [Mass/Vol] 32.6 g/dL Normal 32.0-35.0 The [facility] Comment on above: Performed By: #### 5 0103 ####[facility] MCV (RBC) [Entitic vol] 99.6 fL High 82.0-98.0 [facility] Comment on above: Performed By: #### 5 3 ####[address] Monocytes (Bld) [#/Vol] 0.6 10*3/uL Normal 0.1-1.0 The [place] [facility] Comment on above: Performed By: #### 5 0103 ####[facility] [place] [address], [facility] MONOS 9.4 % Normal 5.0-12.0 The [facility] Comment on above: Performed By: #### 5 0103 ####[facility] Neutrophils/100 WBC (Bld) 66.7 % Normal 40.0-72.0 [facility] Comment on above: Performed By: #### 5 0103 ####[facility] Nucleated RBC/100 WBC (Bld) [Ratio] 0 % Normal 0-0 [facility] Comment on above: Performed By: #### 5 0103 ####[facility] PLAT CNT 175 10*3/uL Normal 150-400 The [facility] Comment on above: Performed By: #### 5 0103 ####[facility] RBC (Bld) [#/Vol] 4.56 10*6/uL Normal 4.20-5.70 The [facility] Comment on above: Performed By: #### 5 0103 ####[facility] WBC (Bld) [#/Vol] 5.88 10*3/uL Normal 4.00-10.60 The [facility] Comment on above: Performed By: #### 5 3 ####[facility] COMP METABOLIC PANELon 11-20 Albumin [Mass/Vol] 4.0 g/dL Normal 3.5-5.7 [facility] Comment on above: Performed By: #### 0 0121, 50606, 83107, 10266 #### [facility] [address] [place] [id number], [facility] ALKALINE PHOSPH 130 IU/L High 34-104 The [facility] Comment on above: Performed By: #### 0 0121, 79937, 21573, 60780 #### [facility] [address] [place] [address], [facility] ALT [Catalytic activity/Vol] 18 U/L Normal 7-52 The [facility] Comment on above: Performed By: #### 0 0121, 67448, 60403, 16549 #### [facility] [address] [place] [address], [facility] AST [Catalytic activity/Vol] 19 U/L Normal 13-39 The [facility] Comment on above: Performed By: #### 0 0121, 23446, 37980, 20495 #### [facility] [address] [place] [address], [facility] Bilirubin [Mass/Vol] 0.4 mg/dL Normal 0.3-1.0 The [facility] Comment on above: Performed By: #### 0 0121, 08692, 58041, 83082 #### [facility] [address] [place] [address], [place] Calcium [Mass/Vol] 9.0 mg/dL Normal 8.6-10.3 [facility] Comment on above: Performed By: #### 0 0121, 68245, 61529, 19527 #### [facility] [address] [place] [address], [place] Chloride [Moles/Vol] 103 mmol/L Normal 98-107 [facility] Comment on above: Performed By: #### 0 0121, 00047, 03273, 09816 #### [facility] [address] [place] [address], [place] CO2 [Moles/Vol] 28 mmol/L Normal 21-31 [facility] Comment on above: Performed By: #### 0 0121, 46505, 70530, 29897 #### [facility] [address] [place] [address], [place] Creatinine [Mass/Vol] 0.77 mg/dL Normal 0.70-1.30 [facility] Comment on above: Performed By: #### 0 0121, 16383, 80576, 06488 #### [facility] [address] [place] [address], [place] GFR/1.73 sq M.predicted among blacks MDRD (S/P/Bld) [Vol rate/Area] mL/min/{1.73_m2} Normal >60 [facility] Comment on above: Performed By: #### 0 0121, 78751, 78602, 85342 #### [facility] [address] [place] [address], [place] GFR/1.73 sq M.predicted among non-blacks MDRD (S/P/Bld) [Vol rate/Area] mL/min/{1.73_m2} Normal >60 [facility] Comment on above: Performed By: #### 0 0121, 06606, 45452, 05350 #### [facility] [address] [place] [address], [place] Glucose [Mass/Vol] 88 mg/dL Normal 70-100 [facility] Comment on above: Performed By: #### 0 0121, 41994, 07197, 17536 #### [facility] [address] [place] [address], [place] Potassium [Moles/Vol] 4.9 mmol/L Normal 3.5-5.1 [facility] Comment on above: Performed By: #### 0 0121, 03738, 65814, 55229 #### [facility] [address] [facility] [place] [address], [facility] Protein [Mass/Vol] 7.3 g/dL Normal 6.0-8.3 [facility] Comment on above: Performed By: #### 0 0121, 46788, 06574, 89811 #### [facility] [address] [facility] [place] [address], [facility] Sodium [Moles/Vol] 138 mmol/L Normal 136-145 [facility] Comment on above: Performed By: #### 0 0121, 99956, 21936, 78354 #### [facility] 3000 [facility] [address], [facility] Urea nitrogen [Mass/Vol] 15 mg/dL Normal 7-25 [facility] Comment on above: Performed By: #### 0 0121, 13083, 97275, 47277 #### [facility] [address] [place], [place] [address] [place] [address] CTA HEADon 11-20-2020 CTA HEAD [facility] Department of Radiology [address] [place] [id number] Patient Name: NAZARIO CORTES : 1955 Sex: M Age: Race: White Pt. Location: [facility] Patient Status: E Ordered Date: 11/20/2020 [...] stenosis of the major vessels of the [place]. origin of bilateral posterior cerebral arteries. IMPRESSION: Normal CTA of the brain. All CT scans at this facility use dose modulation, iterative reconstruction, and/or weight based dosing when appropriate to reduce radiation dose to as low as reasonably achievable. Electronically signed: Dhaval Ghotra. Transcribed by: [email or web address], User Resident: Electronically Signed by: DHAVAL GHOTRA @ 11/20/2020 12:58 PM Normal [facility] Comment on above: Order Comment: Bleed CTA NECKon 11-20-2020 CTA NECK [facility] Department of Radiology [address] [place] [id number] Patient Name: NAZARIO CORTES : 1955 Sex: M Age: Race: White Pt. Location: [facility] Patient Status: E Ordered Date: 11/20/2020 [...] viewed on a separate workstation. The [place] Symptomatic Carotid Endarterectomy Trial (NASCET) method for [...] achievable Electronically signed: Dhaval Ghotra. Transcribed by: [email or web address], User Resident: Electronically Signed by: DHAVAL GHOTRA @ 11/20/2020 12:57 PM Normal [facility] DIRECT BILIon 11-20-2020 Bilirubin.direct [Mass/Vol] 0.1 mg/dL Normal 0.0-0.2 [facility] Comment on above: Order Comment: Liver Battery conflicts with Comprehensive Metabolic Panel. Liver Battery canceled and Direct Bilirubin added. Performed By: #### 0 0121, 78623, 39818, 53969 #### [facility] [address] LIPASE BLOODon 11-20-2020 LIPASE 27 Units/L Normal 11-82 [facility] Comment on above: Performed By: #### 0 0121, 37947, 39927, 82916 #### [address] POC SARS COV2 ANTIGEN NEGATI VEon 11-20-2020 POC SARS COV2 ANTIGEN N Negative Normal NEGATIVE [facility] Comment on above: Result Comment: Test performed on [employer] System for rapid detection of SARS-CoV-2. Negative [...] management. Performed By: #### 3 1919 #### [address] PORTABLE CHEST 1 VIEWon 10-23 PORTABLE CHEST 1 VIEW [facility] Department of Radiology [address] [place] [phone] Patient Name: NAZARIO CORTES : 1955 Sex: M Age: Race: White Pt. Location: [facility] Patient Status: E Ordered Date: 11/20/2020 [...] reports Electronically signed: Dhaval Ghotra. Transcribed by: [email or web address], User Resident: JESSENIA ALFORD Electronically Signed by: DHAVAL GHOTRA @ 11/20/2020 12:32 PM I personally read this/these film(s) with this resident Normal [facility] Comment on above: Order Comment: evalu ate for Pneumonia PROTHROMBIN TIMEon 0 INR Coag (PPP) [Relative time] 0.95 {INR} Normal 0.91-1.16 [facility] Comment on above: Result Comment: ACCC [...] CHEST 1995;108:231S-246S. Performed By: #### 5 6101, 19153 ####[facility] PT Coag (PPP) [Time] 12.7 s Normal 12.3-14.8 [facility] Comment on above: Result Comment: ALL RESULTS MUST BE INTERPRETED WITH RESPECT TO BLOOD DRAWING ARTIFACT OR DILUTION ERROR OF ANTICOAGULANT AT THE TIME OF SAMPLING. Performed By: #### 5 6101, 66593 ####[facility] TROPONIN-Ion 11-20-2020 Troponin I.cardiac [Mass/Vol] 0.00 ng/mL Normal 0.00-0.04 [facility] Comment on above: Order Comment: No: D o not add to previous draw Result Comment: REFE RENCE RANGES: 0.00 - 0.14 ng/ml NEGATIVE 0.15 - 0.25 ng/ml INDETERMINATE > 0.25 ng/ml INDICATIVE OF AN M.I. Performed By: #### 3 5200 #### [facility] [address] [place] [address], [facility] Troponin I.cardiac [Mass/Vol] 0.00 ng/mL Normal 0.00-0.04 [facility] Comment on above: Result Comment: REFE RENCE RANGES: 0.00 - 0.14 ng/ml NEGATIVE 0.15 - 0.25 ng/ml INDETERMINATE > 0.25 ng/ml INDICATIVE OF AN M.I. Performed By: #### 0 0121, 87247, 13405, 737[address] #### [place] [address] [address] Vital Signs Date Time Vital Sign Value Performing Clinician Facility 12-19-2024 13:35-0500 Body height 185.4 cm Amrik Pérez MD Work Phone: [facility] 12-19-2024 13:35-0500 Body mass index (BMI) [Ratio] 40.37 kg/m2 Amrik Pérez MD Work Phone: [facility] 12-19-2024 13:35-0500 Body weight 138.8 kg Amrik Pérez MD Work Phone: [facility] 12-19-2024 13:35-0500 Diastolic blood pressure 64 mm[Hg] Amrik Pérez MD Work Phone: [facility] 12-19-2024 13:35-0500 Heart rate 80 /min Amrik Pérez MD Work Phone: [facility] 12-19-2024 13:35-0500 Systolic blood pressure 112 mm[Hg] Amrik Pérez MD Work Phone: [facility] 11-22-2024 15:42-0500 Body height 185.4 cm Jignesh Gonsalez MD Work Phone: [facility] 11-22-2024 15:42-0500 Body mass index (BMI) [Ratio] 41.16 kg/m2 Jignesh Gonsalez MD Work Phone: [facility] 11-22-2024 15:42-0500 Body temperature 97.5 [degF] Jignesh Gonsalez MD Work Phone: [facility] 11-22-2024 15:42-0500 Body weight 141.52 kg Jignesh Gonsalez MD Work Phone: [facility] 11-22-2024 15:42-0500 Diastolic blood pressure 66 mm[Hg] Jignesh Gonsalez MD Work Phone: [facility] 11-22-2024 15:42-0500 Heart rate 33 /min Jignesh Gonsalez MD Work Phone: [facility] 11-22-2024 15:42-0500 Respiratory rate 20 /min Jignesh Gonsalez MD Work Phone: [facility] 11-22-2024 15:42-0500 SaO2% (BldA) [Mass fraction] 89 % Jignesh Gonsalez MD Work Phone: [facility] 11-22-2024 15:42-0500 Systolic blood pressure 148 mm[Hg] Jignesh Gonsalez MD Work Phone: [facility] 10-25-2024 15:32-0500 Body height 185.4 cm Jignesh Gonsalez MD Work Phone: [facility] 10-25-2024 15:32-0500 Body mass index (BMI) [Ratio] 40.9 kg/m2 Jignesh Gonsalez MD Work Phone: [facility] 10-25-2024 15:32-0500 Body temperature 97.5 [degF] Jignesh Gonsalez MD Work Phone: [facility] 10-25-2024 15:32-0500 Body weight 140.62 kg Jignesh Gonsalez MD Work Phone: [facility] 10-25-2024 15:32-0500 Diastolic blood pressure 70 mm[Hg] Jignesh Gonsalez MD Work Phone: [facility] 10-25-2024 15:32-0500 Heart rate 87 /min Jignesh Gonsalez MD Work Phone: [facility] 10-25-2024 15:32-0500 Respiratory rate 22 /min Jignesh Gonsalez MD Work Phone: [facility] 10-25-2024 15:32-0500 SaO2% (BldA) [Mass fraction] 90 % Jignesh Gonsalez MD Work Phone: [facility] 10-25-2024 15:32-0500 Systolic blood pressure 150 mm[Hg] Jignesh Gonsalez MD Work Phone: [facility] 09-07-2024 14:54-0400 Body height 185.42 cm MD Jignesh Gonsalez Work Phone: [facility] 09-07-2024 14:54-0400 Body mass index (BMI) [Ratio] 39.2 kg/m2 MD Jignesh Gonsalez Work Phone: [facility] 09-07-2024 14:54-0400 Body temperature 96.8 [degF] MD Jignesh Gonsalez Work Phone: [facility] 09-07-2024 14:54-0400 Body weight 134.94 kg MD Jignesh Gonsalez Work Phone: [facility] 09-07-2024 14:54-0400 Diastolic blood pressure 78 mm[Hg] MD Jignesh Gonsalez Work Phone: [facility] 09-07-2024 14:54-0400 Heart rate 93 /min MD Jignesh Gonsalez Work Phone: [facility] 09-07-2024 14:54-0400 Respiratory rate 20 /min MD Jignesh Gonsalez Work Phone: [facility] 09-07-2024 14:54-0400 SaO2% (BldA) [Mass fraction] 94 % MD Jignesh Gonsalez Work Phone: [facility] 09-07-2024 14:54-0400 Systolic blood pressure 119 mm[Hg] MD Jignesh Gonsalez Work Phone: [facility] 08-16-2024 10:34-0400 Body height 185.[address] [facility] 08-16-2024 10:34-0400 Body mass index (BMI) [Ratio] 39 kg/m2 [facility] 08-16-2024 10:34-0400 Body temperature 96.8 [degF] [facility] 08-16-2024 10:34-0400 Body weight 134.[address] [facility] 09-26-2024 10:34-0400 Diastolic blood pressure 77 mm[Hg] [facility] 08-16-2024 10:34-0400 Heart rate 73 /min [facility] 08-16-2024 10:34-0400 Respiratory rate 18 /min [facility] 08-16-2024 10:34-0400 SaO2% (BldA) [Mass fraction] 96 % [facility] 08-16-2024 10:34-0400 Systolic blood pressure 125 mm[Hg] [facility] 08-09-2024 13:10-0400 Body height 185.42 cm MD Jignesh Gonsalez Work Phone: [facility] 08-09-2024 13:10-0400 Body mass index (BMI) [Ratio] 39 kg/m2 MD Jignesh Gonsalez Work Phone: [facility] 08-09-2024 13:10-0400 Body temperature 98.5 [degF] MD Jignesh Gonsalez Work Phone: [facility] 08-09-2024 13:10-0400 Body weight 134.26 kg MD Jignesh Gonsalez Work Phone: [facility] 08-09-2024 13:10-0400 Diastolic blood pressure 64 mm[Hg] MD Jignesh Gonsalez Work Phone: [facility] 08-09-2024 13:10-0400 Heart rate 75 /min MD Jignesh Gonsalez Work Phone: [facility] 08-09-2024 13:10-0400 Respiratory rate 18 /min MD Jignesh Gonsalez Work Phone: [facility] 08-09-2024 13:10-0400 SaO2% (BldA) [Mass fraction] 93 % MD Jignesh Gonsalez Work Phone: [facility] 08-09-2024 13:10-0400 Systolic blood pressure 98 mm[Hg] MD Jignesh Gonsalez Work Phone: [facility] 05-15-2024 15:36-0400 Body height 185.42 cm MD Jignesh Gonsalez Work Phone: [facility] 05-15-2024 15:36-0400 Body mass index (BMI) [Ratio] 36.9 kg/m2 MD Jignesh Gonsalez Work Phone: [facility] 05-15-2024 15:36-0400 Body temperature 97.5 [degF] MD Jignesh Gonsalez Work Phone: [facility] [facility] 05-[facility]-2024 15:36-0400 Body weight 127 kg MD Jignesh Gonsalez Work Phone: [facility] 05-15-2024 15:36-0400 Diastolic blood pressure 74 mm[Hg] MD Jignesh Gonsalez Work Phone: [facility] 05-15-2024 15:36-0400 Heart rate 81 /min MD Jignesh Gonsalez Work Phone: [facility] 05-15-2024 15:36-0400 Respiratory rate 18 /min MD Jignesh Gonsalez Work Phone: [facility] 05-15-2024 15:36-0400 SaO2% (BldA) [Mass fraction] 93 % MD Jignesh Gonsalez Work Phone: [facility] 05-15-2024 15:36-0400 Systolic blood pressure 119 mm[Hg] MD Jignesh Gonsalez Work Phone: [facility] 04-23-2024 13:06-0400 Body height 185.[address] [facility] 04-23-2024 13:06-0400 Body mass index (BMI) [Ratio] 36.9 kg/m2 [facility] 04-23-2024 13:06-0400 Body temperature 97.3 [degF] [facility] 04-23-2024 13:06-[address] [facility] 04-23-2024 13:06-0400 Diastolic blood pressure 56 mm[Hg] [facility] 04-23-2024 13:06-0400 Heart rate 80 /min [facility] 04-23-2024 13:06-0400 Respiratory rate 18 /min [facility] 04-23-2024 13:06-0400 SaO2% (BldA) [Mass fraction] 97 % [facility] 04-23-2024 13:06-0400 Systolic blood pressure 106 mm[Hg] [facility] 07-05-2023 10:00-0400 Body height 185.42 cm Luiz Riggs Other [facility] Other 07-05-2023 10:00-0400 Body mass index (BMI) [Ratio] 37.86 kg/m2 Luiz Riggs Other [facility] 07-05-2023 10:00-0400 Body weight 130.18 kg Luiz Riggs Other [facility] Other 07-05-2023 10:00-0400 Diastolic blood pressure 76 mm[Hg] Luiz Riggs Other [facility] Other 07-05-2023 10:00-0400 Systolic blood pressure 126 mm[Hg] Luiz Riggs Other [facility] Other 04-06-2022 17:40-0400 Body height 185.42 cm Neelam Morris Other [facility] Other 04-06-2022 17:40-0400 Body mass index (BMI) [Ratio] 36.15 kg/m2 Neelam Morris Other [facility] Other 04-06-2022 17:40-0400 Body temperature 98 [degF] Neelam Morris Other [facility] Other 04-06-2022 17:40-0400 Body weight 124.29 kg Neelam Morris Other [facility] Other 04-06-2022 17:40-0400 Diastolic blood pressure 69 mm[Hg] Neelam Morris Other [facility] Other 04-06-2022 17:40-0400 Respiratory rate 18 /min Neelam Morris Other [facility] Other 04-06-2022 17:40-0400 SaO2% (BldA) [Mass fraction] 95 % Neelam Morris Other [facility] Other 04-06-2022 17:40-0400 Systolic blood pressure 123 mm[Hg] Neelam Morris Other [facility] Other 12-28-2021 17:00-0500 Body height 185.42 cm Alex Elspiper Other [facility] Other 12-28-2021 17:00-0500 Body mass index (BMI) [Ratio] 37.47 kg/m2 Alex Elspiper Other [facility] Other 12-28-2021 17:00-0500 Body weight 128.82 kg Alex Elspiper Other [facility] Other Encounters Encounter Date Encounter Type Care [...] px Jignesh Gonsalez MD Work Phone: [facility] Comment on above: Medicare annual well [...] Start: 10-17-2024 End: 10-17-2024 ambulatory Yancy Lawson Facility:[facility] Start: 10-11-2024 End: 10-11-2024 Refill Jignesh Gonsalez MD Work Phone: [facility] Comment on above: Degenerative lumbar spinal stenosis Start: 09-25-2024 End: 09-25-2024 Refill Jignesh Gonsalez MD Work Phone: [facility] Comment on above: Seizure disorder (CM S/HCC) Start: 09-07-2024 End: 09-07-2024 ambulatory MD Jignesh Gonsalez Work Phone: [facility] Work Phone: Start: 09-07-2024 End: 09-07-2024 Patient encounter procedure MD Jignesh Gonsalez Work Phone: [facility] [place] Work Phone: Start: 08-16-2024 End: 08-16-2024 ambulatory [facility] Work Phone: Start: 08-16-2024 End: 08-16-2024 Patient encounter procedure [facility] [place] Work Phone: Start: 08-09-2024 End: 08-09-2024 ambulatory MD Jignesh Gonsalez Work Phone: [facility] Work Phone: Start: 08-09-2024 End: 08-09-2024 Patient encounter procedure MD Jignesh Gonsalez Work Phone: [facility] [place] Work Phone: Start: 08-08-2024 ambulatory [facility] Start: 07-26-2024 End: 07-26-2024 ambulatory [facility] Start: 07-18-2024 End: 07-18-2024 Timo Gonsalez MD Work Phone: [facility] Comment on above: Seizure disorder (CM S/HCC) Start: 06-13-2024 End: 06-13-2024 ambulatory IMELDA THOMPSON Not Available Start: 05-21-2024 End: 05-21-2024 ambulatory JIGNESH GONSALEZ Not Available Start: 05-16-2024 End: 05-16-2024 ambulatory IMELDA THOMPSON Not Available Start: 05-15-2024 End: 05-15-2024 ambulatory MD Jignesh Gonsalez Work Phone: [facility] Work Phone: Start: 05-15-2024 End: 05-15-2024 Patient encounter procedure MD Jignesh Gonsalez Work Phone: [facility] [place] Work Phone: Start: 04-23-2024 End: 04-23-2024 ambulatory [facility] Work Phone: Start: 04-23-2024 End: 04-23-2024 Patient encounter procedure [facility] [place] Work Phone: Start: 04-17-2024 End: 04-17-2024 ambulatory CORNELIO COTTER Not Available Start: 03-07-2024 End: 03-07-2024 ambulatory AMRIKANA NOONANJonatan Not Available Start: 02-21-2024 End: 02-21-2024 ambulatory JIGNESH GONSALEZ Not Available Start: 01-11-2024 End: 01-11-2024 ambulatory SHAIKH TIESHA Not Available Start: 01-05-2024 End: 01-05-2024 ambulatory [facility] Start: 01-05-2024 End: 01-05-2024 ambulatory [facility] Start: 02-09-2024 ambulatory Chris Archuleta ty:WYATT Fall Start: 12-21-2023 Telephone encounter Epifanio dennison MD Work Phone: [facility] Start: 12-20-2023 ambulatory [facility] Start: 12-19-2023 End: 12-19-2023 ambulatory [facility] Start: 07-18-2023 End: 07-19-2023 ambulatory JIGNESH GONSALEZ Facility:[facility] Start: 07-18-2023 End: 07-18-2023 Patient encounter procedure Chris CAMARILLO [facility] Start: 07-05-2023 Office outpatient ne w 30 minutes Luiz Riggs [facility] Start: 07-05-2023 End: 07-05-2023 ambulatory MD Jignesh Gonsalez Work Phone: [facility] Work Phone: Start: 07-05-2023 End: 07-05-2023 Patient encounter procedure MD Jignesh Gonsalez Work Phone: [facility] Work Phone: Start: 01-07-2023 End: [...] 04-06-2022 End: 04-06-2022 ambulatory Neelam Morris Other [employer] [facility] Other Start: 04-06-2022 Office outpatient vi sit 15 minutes Neelam Morris [facility] [place] Start: 12-28-2021 End: 12-28-2021 ambulatory Alex Bonilla Other [facility] Other Start: 12-28-2021 Office outpatient ne w 30 minutes Alex Bonilla [facility] Start: 11-20-2020 End: 11-20-2020 Emergency department patient visit KARINA PIERRE Facility:[facility] Procedures Date Procedure Procedure Detail Performing [...] Comment on above: Performed By: #### P [facility] #### [facility] [address] [place] [address] Dr. Jeimy Tenorio Extraction of cataract Patri [...] [facility] [address] [place] [phone] Jignesh Gonsalez MD [address] [place] [address] [facility] Start: 12-19-2024 End: 12-19-2024 Patient encounter procedure 12/19/2024 1:40 PM EST Office Visit [facility] [address] [place] [phone] Amrik Pérez MD [address] [place] [address] Deviated nasal septum; Chronic rhinosinusitis [facility] Comment on above: Deviated nasal septu m; Chronic rhinosinusitis Start: 11-26-2024 End: 11-26-2024 Patient encounter procedure 11/26/2024 2:00 PM EST Office Visit [facility] [address] [place] [phone] Jose M Rea DO [address] [place] [address] [facility] Start: 11-22-2024 End: 11-22-2024 [...] of medication Expected: 11/22/2024 (Approximate), Expires: 11/22/2025 [facility] Comment on above: Expected: 11/22/2024 (Approximate), Expires: 11/22/2025 Start: 11-22-2024 End: 11-22-2025 Hepatic function 2000 panel - Serum or Plasma Hepatic function panel Lab Routine Encounter for long-term current use of medication Expected: 11/22/2024 (Approximate), Expires: 11/22/2025 [facility] Comment on above: Expected: 11/22/2024 (Approximate), Expires: 11/22/2025 Start: 11-22-2024 End: 11-22-2025 Lipid 1996 panel - Serum or Plasma Lipid panel Lab Routine Dyslipidemia ([facility]) Expected: 11/22/2024 (Approximate), Expires: 11/22/2025 [facility] Comment on above: Expected: 11/22/2024 (Approximate), Expires: 11/22/2025 Start: 11-22-2024 End: 11-22-2025 Prostate specific Ag [Mass/volume] in Serum or Plasma PSA Lab Routine Screening PSA (prostate specific antigen) Expected: 11/22/2024 (Approximate), Expires: 11/22/2025 [facility] Comment on above: Expected: 11/22/2024 (Approximate), Expires: 11/22/2025 Start: 11-22-2024 End: 11-22-2025 Thyrotropin [Units/volume] in Serum or Plasma TSH Lab Routine Class 3 severe obesity due to excess calories with serious comorbidity and body mass index (BMI) of 40.0 to 44.9 in adult ([facility]/HCC) Expected: 11/22/2024 (Approximate), Expires: 11/22/2025 [facility] Comment on above: Expected: 11/22/2024 (Approximate), Expires: 11/22/2025 Start: 10-25-2024 End: 10-25-2024 Patient encounter procedure [facility] Comment on above: Arrived Start: 10-25-2024 End: 10-25-2025 CT Maxillofacial region WO and W contrast IV CT SINUS WO IV CONTRAST Imaging Routine Chronic rhinosinusitis Expected: 10/25/2024, Expires: 10/25/2025 [facility] Work Phone: Comment on above: Expected: 10/25/2024 , Expires: 10/25/2025 Start: 09-27-2024 End: 09-27-2024 Patient encounter procedure 09/27/2024 3:30 PM EST Office Visit [facility] [address] [place] [phone] Jignesh Gonsalez MD [address] [place] [phone] [facility] Start: 07-22-2024 Influenza vaccination Influenza Vacc ine (#1) [facility] Start: 12-30-2023 COVID-19 Vaccine ( season) COVID-19 Vaccine ( season) [facility] Start: 08-16-2023 Adult BMI Screening Adult BMI Screen ing [facility] Start: 08-16-2023 Fall Risk Screening Fall Risk Screen ing [facility] Start: 08-16-2023 Tobacco Screening Tobacco Screening [facility] Start: 08-05-2021 Pneumococcal Vaccine : 65+ Years (2 of 2 - PCV) Pneumococcal Vaccine: 65+ Years (2 of 2 - PCV) [facility] Start: 1974 Administration of varicella zoster vaccine Zoster (Shingles) Vaccine (1 of 2) [facility] Start: 1974 DTaP,Tdap and Td Vaccines (1 - Tdap) DTaP,Tdap and Td Vaccines (1 - Tdap) [facility] Start: 1967 Depression Screening Depression Scre ening [facility] Start: 1955 Medicare Annual Well ness (AWV) Medicare Annual Wellness (AWV) [facility] Start: 1955 Medicare Annual Well ness Visit Medicare Annual Wellness Visit [facility] Start: 1955 Screening for malign ant neoplasm of colon [facility] MR Knee - right WO contrast MR knee right wo IV contrast Imaging Routine Chronic pain of right knee Internal derangement of right knee Ordered: 10/25/2024 [facility] Comment on above: Ordered: 10/25/2024 XR Knee - right 4 Views [facility] Immunizations Immunization Date Immunization Notes Care Provider Fa jovon 10-11-2024 influenza virus vacc ine, unspecified formulation Jignesh Gonsalez MD Work Phone: [facility] 11-04-2023 Covid-19, Mrna, Lnp- s, Bivalent, Pf, 30mcg/0.3 ml Epifanio Kaufman MD Work Phone: [facility] 11-04-2023 Influenza, Seasonal, Quadrivalent, Adjuvanted Jignesh Gonsalez MD Work Phone: [facility] 11-04-2023 influenza virus vacc ine, unspecified formulation Jignesh Gonsalez MD Work Phone: [facility] 08-21-2022 influenza virus vacc ine, unspecified formulation Epifanio Kaufman MD Work Phone: [facility] 08-21-2022 Influenza, High-dose Seasonal, Quadrivalent, Preservative Free Jignesh Gonsalez MD Work Phone: [facility] 08-21-2022 SARS-COV-2 (COVID-19 ) Vaccine, Unspecified Epifanio Kaufman MD Work Phone: [facility] 08-06-2021 Influenza Vaccine, Quadrivalent, Adjuvanted Jignesh Gonsalez MD Work Phone: [facility] 02-25-2021 COVID-19, mRNA, LNP- S, PF, 100mcg/0.5mL Dose Jignesh Gonsalez MD Work Phone: [facility] 02-12-2021 COVID-19, mRNA, LNP- S, PF, 30mcg/0.3mL Dose Epifanio Kaufman MD Work Phone: [facility] 08-05-2020 influenza, injectabl e, quadrivalent, preservative free Jignesh Gonsalez MD Work Phone: [facility] 08-05-2020 pneumococcal polysaccharide vaccine, 23 valent Jignesh Gonsalez MD Work Phone: [facility] 09-03-2019 influenza, seasonal, injectable Jignesh Gonsalez MD Work Phone: [facility] 08-24-2019 influenza, injectabl e, quadrivalent, preservative free Jignesh Gonsalez MD Work Phone: [facility] Payers Date Payer Category Payer Self-pay [id number] 2023 Medicaid [id number] 2023 Medicaid [id number] 2022 Medicare [id number] 2021 Medicare [id number] 2021 Unknown [id number] 2021 Medicare [id number] 2020 Medicare [id number] 2019 Unknown [id number] 1959 Medicare [id number] 2. [id number] 1955 Unknown [id number] 2.16.8 40.1.058549.3.579.2.647 1955 Unknown [id number] 2.16.84 0.1.411746.3.579.2.593 1955 Unknown [id number] 2.16.84 0.1.028168.3.579.2.593 1955 Unknown [id number] 2.16.84 0.1.736926.3.579.2.593 1955 Unknown [id number] 2.16.84 0.1.888428.3.579.2.593 1955 Unknown [id number] 2.16.84 0.1.617522.3.579.2.593 1955 Unknown [id number] 2.16.84 0.1.722524.3.579.2.593 1955 Unknown [id number] 2.16.84 0.1.163304.3.579.2.593 1955 Unknown [id number] 2.16.8 40.1.317083.3.579.2.1286 1955 Unknown [id number] 2.16.8 40.1.147145.3.579.2.727 1955 Unknown [id number] 2.16.8 40.1.019786.3.579.2.727 1955 Unknown [id number] 2.16.84 0.1.088751.3.579.2.1259 1955 Unknown [id number] 2.16.84 0.1.590010.3.579.2.1259 1955 Unknown [id number] 2.16.84 0.1.543030.3.579.2.1259 1955 Unknown [id number] 2.16.84 0.1.939596.3.579.2.1259 1955 Unknown [id number] 2.16.84 0.1.758011.3.579.2.1259 1955 Unknown [id number] 2.16.84 0.1.443340.3.579.2.1259 1955 Unknown [id number] 2.16.84 0.1.442568.3.579.2.1259 1955 Unknown [id number] 2.16.84 0.1.657457.3.579.2.1259 1955 Unknown [id number] 2.16.84 0.1.189641.3.579.2.1259 1955 Unknown [id number] 2.16.84 0.1.939080.3.579.2.1259 1955 Unknown [id number] 2.16.84 0.1.197600.3.579.2.1259 1955 Unknown [id number] 2.16.84 0.1.666576.3.579.2.1259 1955 Unknown [id number] 2.16.84 0.1.137313.3.579.2.1259 Medicare [id number] Unknown [id number] 2.16.8 40.1.671729.3.579.2.531 Unknown [id number] 2.16.8 40.1.909066.3.579.2.531 Unknown [id number] 2.16.8 40.1.691256.3.579.2.531 Social History Date Type Detail Facility Start: 01-01-2021 End: 12-14-2023 Sex Assigned At [facility] Start: 1955 Sex Assigned At Male [facility] Tobacco smoking status No Smoking Status Entered [facility] Start: 04-23-2024 Tobacco smoking status [facility] Never smoked tobacco (finding) [facility] Start: 01-29-2020 End: 01-11-2024 Tobacco smoking status GAIS Ex-smoker [facility] Start: 11-21-1971 End: 04-18-1997 History of tobacco use Current smoker [facility] Start: 11-21-1971 End: 04-18-1997 History of tobacco use Cigarette Smoker [facility] Start: 01-29-2020 End: 01-11-2024 Tobacco use [...] Healthcare Start: 08-16-2022 Alcohol intake Ex-drinker (finding) [facility] NEGATED: Highlighted rowStart: NINF History of tobacco [...] of urinary bladder (CMS/HCC) 10/26/2023 Seizure disorder ([facility]) 10/26/2023 Coronary arteriosclerosis ([facility]) 07/21/2020 Class 3 severe obesity due to excess calories with serious comorbidity and body mass index (BMI) of 40.0 to 44.9 in adult ([facility]) 01/12/2021 Encounter for long-term current use of medication 11/29/2023 Screening PSA (prostate specific antigen) 11/29/2023 Chest pain due to CAD ([facility]) 01/11/2024 KAROL (obstructive sleep apnea) 02/21/2024 Bilateral [...] History: Diagnosis Date Cataracts, bilateral 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[facility]) Dizziness 1997 DNS (deviated nasal septum) Fracture of nasal bones 2023 History of malignant germ cell neoplasm of mediastinum HL (hearing loss) 1998 Malignant neoplasm of urinary bladder, unspecified site ([facility]) Obesity 1998 Right foot pain Seizures ([facility]) Sleep apnea 1999 Stroke ([facility]) 2009 Syncope, unspecified syncope type Tinnitus 1998 [...] on the RT. documented in this encounter [facility] 11-27-2024 History of Presen t illness [...] Ashley Rea DO documented in this encounter [facility] 11-22-2024 History of Presen t illness [...] (BMI) of 40.0 to 44.9 in adult ([facility]) Weight loss indicated. Relevant Orders [...] not to smoke. documented in this encounter [facility] 11-06-2024 Telephone encounter Note Spoke to Janet, Chart was audited from 05/20/23 and needed my signature on the document.. added and faxed to [facility]. [facility] Work Phone: 11-06-2024 Miscellaneous Notes Spoke to Janet, Chart was audited from 05/20/23 and needed my signature on the document.. added and faxed to [employer]. Her name is Janet that called chantel De Anda. Neetu from [facility] called and left vm that she needs a return call. She stated she has called a few times and has not received a call back regarding this patient. I tried to call back and it just kept ringing. Please call her back at [phone]. documented in this encounter [facility] 11-06-2024 Telephone encounter Note Her name is Janet that called chantel De Anda. [facility] 11-06-2024 Telephone encounter Note Neetu from [facility] called and left vm that she needs a return call. She stated she has called a few times and has not received a call back regarding this patient. I tried to call back and it just kept ringing. Please call her back at [phone]. [facility] 10-30-2024 History of Presen t illness Narrative Pt picked up supplies documented in this encounter [facility] 10-25-2024 History of Presen t illness [...] spasms. Continue PT exercises. Relevant Medications HYDROcodone-acetaminophen ([place]) 5-325 MG tablet Chronic rhinosinusitis Continued congestion [...] to General Surgery documented in this encounter [facility] 08-08-2024 Note SUBJECTIVE: Chief complaint: Back [...] about 6 or 7 years ago, in [facility] and had injections, which he states he has made his symptoms worse. Not interested in pursuing additional injections. Has had complex care nurse practitioner many years ago for previous symptoms of [...] Past Medical History: Diagnosis Date Bladder cancer ([facility]) around 1997 Cholelithiasis Colon polyp Depression Dyslipidemia Hearing loss Left foot drop Peripheral neuropathy Seizure disorder ([facility]) TIA (transient ischemic attack) Past [...] needed each day., Disp: , Rfl: HYDROcodone-acetaminophen ([place]) 5-325 mg tablet, take 1 tablet by mouth four times a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
[2025-01-10] VITALS (17 sets, daily range): BP systolic 128–155; BP diastolic 67–85; PULSE 66–81; TEMP 36.4–36.9; O2SAT 90–91
[2025-01-10] MEDS: PHENobarbitaL 32.4 MG TABLET PO ×3 (00:47→21:46)
[2025-01-10] MEDS: ATORVASTATIN CALCIUM 10 MG TABLET PO ×2 (00:47→21:46)
[2025-01-10 05:29] LABS: Hematocrit 39.6 % (42.0-54.0); Hemoglobin 12.9 g/dL (14.0-18.0); Mean Corpuscular HGB Conc 32.6 g/dL (29.9-35.2); Mean Corpuscular Hemoglobin 33.1 pg (25.9-34.0); Mean Corpuscular Volume 101.5 fL (80.0-94.0); Mean Platelet Volume 10.2 fL (9.5-13.5); Platelet Count 177 10^3/uL (150-450); Red Cell Distribution Width 13.4 % (11.0-15.0); White Blood Count 7.6 10^3/uL (4.0-11.0)
[2025-01-10 05:45] LABS: Phenytoin Dilantin 10.2 ug/mL (10.0-20.0)
[2025-01-10 05:51] LABS: Troponin I High Sensitivity 7.7 pg/mL (4.0-76.1)
[2025-01-10 05:55] LABS: Alanine Aminotransferase 27 U/L (16-63); Albumin Globulin Ratio 0.5; Albumin Level 2.6 g/dL (3.4-5.0); Alkaline Phosphatase 157 U/L (46-116); Anion Gap 9.9; Aspartate Amino Transferase 20 U/L (15-37); BUN Creatinine Ratio 21.1; Bilirubin Total 0.2 mg/dL (0.2-1.0); Calcium 7.9 mg/dL (8.5-10.1); Carbon Dioxide 26.5 mmol/L (21.0-32.0); Chloride 107 mmol/L (98-107); Estimated GFR (African America >60 (>=60 mL/min/1.73m^2); Estimated GFR (Non-African Ame >60 (>=60 mL/min/1.73m^2); Globulin 4.9 g/dL; Glucose 127 mg/dL (74-106); Potassium 4.4 mmol/L (3.5-5.1); Sodium 139 mmol/L (136-145); Total Protein 7.5 g/dL (6.4-8.2)
--- NOTE | 2025-01-10 06:00 | ECG_ITS ---
[facility] Test Date: 2025-01-10 Pat Name: GÓMEZ CORTES Department: Room: Gender: Male Assistant Drafter: : 1955 Requested By: ADALID GONSALEZ Order Number: [id number] Reading MD: NOE ESCALANTE Measurements Intervals [place] Rate: 72 P: -19 WV: 166 QRS: 9 QRSD: 78 T: 52 QT: 396 QTc: 434 Interpretive Statements SINUS RHYTHM WARNING: DATA QUALITY MAY AFFECT INTERPRETATION Compared to ECG 01/09/2025 19:38:35 No significant changes Electronically Signed On 01-10-2025 6:49:46 EST by NOE ESCALANTE
[2025-01-10] MEDS: PHENYTOIN 100 MG 200 MG PO ×3 (06:13→21:46)
--- NOTE | 2025-01-10 07:10 | CA_ITS ---
Patient Name: GÓMEZ CORTES MR#: [id number] : 1955 Exam Date: 01/10/2025 Ordering Doctor: NOAH GALVAN ECHOCARDIOGRAM REPORT PROCEDURE: CA ECHO DOPPLER COMPLETE INDICATIONS: Chest pain, coronary artery disease, hypertension COMPARISON: None. DESCRIPTION: COMPLETE ECHOCARDIOGRAM Real-time transthoracic echocardiography with 2D, M-mode, spectral and color flow Doppler performed. QUALITY: Technical quality was adequate. LEFT VENTRICLE: Normal chamber size. Mild concentric left ventricular hypertrophy. Normal systolic function. No segmental wall motion abnormalities. LV EF: Normal left ventricular ejection fraction, (>55%). DIASTOLIC: Diastolic function is indeterminate. ATRIAL SEPTUM: LEFT ATRIUM: Mild dilatation. RIGHT ATRIUM: Mild dilatation. RIGHT VENTRICLE: Normal chamber size. Normal systolic function. TRICUSPID VALVE: Normal mobility and thickness. No stenosis with no regurgitation. Unable to assess right-sided pressures due to lack of measurable tricuspid regurgitation. MITRAL VALVE: Normal mobility and thickness. No evidence of mitral valve stenosis. There is no mitral annular calcification. No mitral regurgitation. AORTIC VALVE: Normal trileaflet appearance. Normal leaflet mobility. No evidence of aortic valve stenosis. No aortic regurgitation. AORTIC ROOT: Normal diameter and appearance. Ascending aorta is normal in size. PULMONIC VALVE: Normal thickness and mobility. No stenosis. No regurgitation. PERICARDIUM: No evidence of pericardial effusion. IVC: Not well visualized. PLEURA: CONCLUSION: 1. Mild concentric left ventricular hypertrophy with normal systolic function. Estimated LVEF is 55 to 60%. 2. Normal right ventricular size and systolic function. 3. No significant valvular dysfunction. 4. Unable to assess right-sided pressures due to lack of measurable tricuspid regurgitation. 5. No pericardial effusion. Adult Echocardiography Procedure Report Left Ventricle LVEDD (3.7 - 5.6 cm): 3.07 cm LVESD (2.2 - 4.0 cm): 2.28 cm LVIVS thickness (0.6 - 1.2 cm): 1.25 cm LVPW thickness (0.5 - 1.0 cm): 0.95 cm e': 0.10 m/s E - e': 7.96 LVOT Max Gradient: 2.70 mm[Hg] LVOT Area (cm2): 0.82 m/s Peak Velocity (LVOT): 0.82 m/s Mean Velocity (LVOT): 0.50 m/s LVOT Diameter 2.82 cm Left Atrium LA Volume Index (2D A2C): 32.90 ml/m2 Left Atrium Systolic Dimension: 3.15 cm Mitral Valve MV E to A Ratio: 1.20 Mitral Valve A-Wave Peak Velocity: 0.66 m/s Mitral Valve E-Wave Peak Velocity: 0.79 m/s Right Ventricle Aorta AO Root Diam: 3.68 cm Ascending Ao Diam: 3.35 cm Aortic Valve AoV Area (Peak Abimael): 5.44 cm2, 5.44 cm2 AoV Area (VTI): 5.25 cm2, 5.25 cm2 Peak Velocity(Antegrade Flow): 0.94 m/s Peak Gradient(Antegrade Flow): 3.52 mm[Hg] Mean Velocity(Antegrade Flow): 0.66 m/s Mean Gradient(Antegrade Flow): 1.95 mm[Hg] Velocity Time Integral: 22.76 cm Tricuspid Valve Pulmonic Valve Mean Gradient: 1.27 mm[Hg] Mean Velocity: 0.53 m/s Peak Velocity: 0.72 m/s, 0.77 m/s Peak Gradient: 2.39 mm[Hg], 2.05 mm[Hg] Right Atrium Right Atrium Systolic Pressure: 76.86 ml, 76.86 ml Dictated by: Arcadio Smith M.D. on 01/10/2025 at 17:33 Approved by: Arcadio Smith M.D. on 01/10/2025 at 17:39
[2025-01-10] MEDS: CITALOPRAM HYDROBROMIDE 20 MG TABLET 40 MG PO (08:14)
[2025-01-10] MEDS: ASPIRIN 81 MG TABLET.DR PO (08:14)
[2025-01-10] MEDS: FUROSEMIDE 40 MG TABLET PO (08:14)
[2025-01-10] MEDS: ENOXAPARIN SODIUM 40 MG/0.4 ML SYRINGE SUBQ (08:14)
--- NOTE | 2025-01-10 09:56 | CM.NOTE ---
Rounds made with Dr. Lerma, discussed plan of care with pt. Pt will have echo today and see respiratory tech for further recommendations. Possible discharge to home this afternoon.
[2025-01-10] MEDS: CALCIUM POLYCARBOPHIL 625 MG TABLET PO (10:29)
--- NOTE | 2025-01-10 11:07 | P.HP_ITS ---
HPI H&P: HPI History of Present Illness Chief complaint: Chest Pain Narrative: 69-year-old male with history of essential hypertension, hyperlipidemia, morbid obesity and prior history of nonobstructive coronary artery disease noted on left heart catheterization in 2008 presented to ER with sudden onset chest pain across his chest associated with shortness of breath and dizziness. He took sublingual nitro at home with no relief and called EMS. His symptoms lasted for about a few hours until he was given nitroglycerin patch with improvement in his symptoms. Workup in ER included EKG with no acute findings along with negative cardiac enzymes. No acute finding on chest x-ray. There were also no significant abnormalities noted on CBC and CMP. Patient had a nuclear stress test last year in April that did not reveal any evidence of reversible myocardial ischemia. 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 At the time of my evaluation, he felt a little dizzy but had no other active symptoms or complaints to offer. Cardiology consult is pending. Echocardiogram pending. Opioid HPI Opioid Management Most Recent Pain and Opioid Data: Last Pain Scale 1 01/10/25 10:00 01/10/25 Last Pain Assessment 01/10/25 10:00 Last ED Pain Assessment 01/09/25 22:35 Last ORT Total Score 1 01/09/25 23:46 01/09/25 Last ORT Risk Category Low Risk 01/09/25 23:46 01/09/25 Review of Systems ROS Status of ROS 10 or more systems reviewed and unremark able except as noted in history and below [facility] Medical History (Updated 01/10/25 @ 11:15 by Shaikh Florentin MD) Seizure disorder ?G40.909 - Epilepsy, unspecified, not intractable, without status epilepticus (ICD-10) CAD (coronary artery disease) ?I25.10 - Atherosclerotic heart disease of [place] coronary artery without angina pectoris (ICD-10) Cervical vertebral fusion ?M43.22 - Fusion of spine, cervical region (ICD-10) Lipoma of axilla ?D17.20 - Benign lipomatous neoplasm of skin and subcutaneous tissue of unspecified limb (ICD-10) Rupture, tendon, Achilles ?S86.019A - Strain of unspecified Achilles tendon, initial encounter (ICD-10) Syncope ?R55 - Syncope and collapse (ICD-10) Seizure ?R56.9 - Unspecified convulsions (ICD-10) Malignant neoplasm of mediastinum ?C38.3 - Malignant neoplasm of mediastinum, part unspecified (ICD-10) Depression ?F32.A - Depression, unspecified (ICD-10) Dyslipidemia ?E78.5 - Hyperlipidemia, unspecified (ICD-10) Deviated nasal septum ?J34.2 - Deviated nasal septum (ICD-10) Degenerative lumbar spinal stenosis ?M48.061 - Spinal stenosis, lumbar region without neurogenic claudication (ICD-10) 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 - Drug-induced polyneuropathy (ICD-10) ?T45.1X5A - Adverse effect of antineoplastic and immunosuppressive drugs, initial encounter (ICD-10) CAD, multiple vessel ?I25.10 - Atherosclerotic heart disease of [place] coronary artery without angina pectoris (ICD-10) 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 - Malignant neoplasm of mediastinum, part unspecified (ICD-10) Bladder cancer ?C67.9 - Malignant neoplasm of bladder, unspecified (ICD-10) HLD (hyperlipidemia) ?E78.5 - Hyperlipidemia, unspecified (ICD-10) Chest pain ?R07.9 - Chest pain, unspecified (ICD-10) Surgical History (Updated 12/11/24 @ 07:49 by Sandy Holley) History of cataract surgery ?Z98.49 - Cataract extraction status, unspecified eye (ICD-10) History of foot surgery ?Z98.890 - Other specified postprocedural states (ICD-10) History of esophagogastroduodenoscopy (EGD) ?Z98.890 - Other specified postprocedural states (ICD-10) History of colonoscopy ?Z98.890 - Other specified postprocedural states (ICD-10) History of neck surgery ?Z98.890 - Other specified postprocedural states (ICD-10) H/O shoulder surgery ?Z98.890 - Other specified postprocedural states (ICD-10) History of cholecystectomy ?Z90.49 - Acquired absence of other specified parts of digestive tract (ICD- 10) Family History (Updated 12/04/24 @ 14:46 by Jackie Nielson) Father Family history of myocardial infarction Sister Family history of cancer Other Family history of coronary artery disease Family history of diabetes mellitus Family history of gastric cancer Family history of heart disease Family history of hypertension Family history of kidney cancer Family history of stroke Social History (Updated 01/09/25 @ 23:51 by Amie Florian RN) Within the past year, how often did you have a drink containing alcohol: never Score interpretation: A score less than 4 is consistent with normal alcohol consumption. Smoking status: Former smoker Non-prescribed substance use: denies use Previous occupational history: retired Highest level of school completed/degree received: Associate degree: academic program Are you now , , , , never or living with a partner: In a typical week, how many times do you talk on the telephone with family, friends, or neighbors: 3 or more times per week How often do you get together with friends or relatives: 3 or more times per week Little interest or pleasure in doing things: several days Feeling down, depressed, or hopeless: several days Feel stressed/tense/nervous/anxious/difficulty sleeping: to some extent Life stressors: other Life stressor details: health Gender Identity: male Meds Home Medications and Allergies Home Medications ?Medication ?Instructions ?Recorded ?Confirmed ?Type atorvastatin 10 mg tablet 10 mg PO .hs 05/12/23 01/09/25 History citalopram 40 mg tablet 40 mg PO DAILY 05/12/23 01/09/25 History meclizine 25 mg tablet 25 mg PO QID PRN dizziness 05/12/23 01/09/25 History phenobarbital 32.4 mg tablet 32.4 mg PO Q12H 05/12/23 01/09/25 History phenytoin sodium extended 100 mg 200 mg PO TID 05/12/23 01/09/25 History capsule hydrocodone 5 mg-acetaminophen 325 1 tab PO Q6H PRN pain 3 days #12 02/19/24 01/09/25 Rx mg tablet tabs furosemide 40 mg tablet 40 mg PO DAILY edema 05/24/24 01/09/25 History nitroglycerin 0.3 mg sublingual 0.3 mg sublingual Q5M PRN chest 05/24/24 01/09/25 History tablet pain potassium chloride 20 mEq 20 meq PO DAILY PRN hypokalemia 05/24/24 01/09/25 History tablet,extended release methocarbamol 750 mg tablet 750 mg PO Q8H PRN muscle spasm 12/04/24 01/09/25 History psyllium husk 0.4 gram capsule 0.4 g PO DAILY 12/04/24 01/09/25 History (Daily Fiber) aspirin 81 mg tablet,delayed 81 mg PO DAILY 01/09/25 01/09/25 History release (Adult Low Dose Aspirin) Allergies Allergy/AdvReac Type Severity Reaction Status Date / Time oxycodone (From OxyContin) Allergy Severe Anaphylaxis Verified 01/09/25 19:42 gabapentin Allergy Unknown Unknown Verified 01/09/25 19:42 phenytoin (From Dilantin) AdvReac Severe Dizziness Verified 01/09/25 19:42 Exam Constitutional Vital Signs, click to edit/add: Last Vital Signs Temp 97.6 F 01/10/25 08:00 Pulse 69 01/10/25 09:55 Resp 18 01/10/25 08:00 BP 149/78 H 01/10/25 10:30 Pulse Ox 91 L 01/10/25 08:00 O2 Del Method Room Air 01/10/25 08:00 Documenting provider has reviewed patient's vital signs: yes Common normals: no apparent distress and oriented x3 General appearance: cooperative HENNH Common normals: normocephalic and head/scalp atraumatic Head and scalp: normocephalic and atraumatic Respiratory Common normals: normal respiratory effort and clear to auscultation bilaterally Effort & inspection: able to speak in complete sentences Auscultation: clear to auscultation bilaterally Cardio Common normals: regular rate, S1 normal heart sound and S2 normal heart sound Rate: regular rate Heart sounds: S1 normal and S2 normal GI Common normals: Normal to inspection, nondistended, normoactive bowel sounds present, soft to palpation, non-tender and no hepatosplenomegaly Palpation: soft and no hepatosplenomegaly Extremity Common normals: no clubbing, cyanosis or edema Neuro Common normals: oriented x3, moves all extremities and no focal motor deficits Psych Common normals: mental status grossly normal, denies hallucinations, denies homi cidal ideation and denies suicidal ideation Results Labs Labs: Short CBC 01/09/25 01/10/25 Range/Units 19:44 05:01 WBC 7.6 7.6 (4.0-11.0) 10^3/uL Hgb 13.0 L 12.9 L (14.0-18.0) g/dL Hct 38.7 L 39.6 L (42.0-54.0) % Plt Count 188 177 (150-450) 10^3/uL BMP 01/09/25 01/10/25 19:44 05:01 Sodium 138 139 Potassium 4.1 4.4 Chloride 105 107 Carbon Dioxide 26.5 26.5 BUN 19.0 H 23.0 H Creatinine 1.23 1.09 Glucose 124 H 127 H Calcium 8.0 L 7.9 L Liver Function 01/09/25 01/10/25 Range/Units 19:44 05:01 Total Bilirubin 0.2 0.2 (0.2-1.0) mg/dL AST 20 20 (15-37) U/L ALT 27 27 (16-63) U/L Alkaline Phosphatase 164 H 157 H (46-116) U/L Albumin 2.9 L 2.6 L (3.4-5.0) g/dL Assessment and Plan Assessment and Plan (1) Chest pain: Assessment and Plan: It is very unlikely that his chest pain is from myocardial ischemia given his normal EKG and negative cardiac enzymes. He also had a negative Lexiscan within past 1 year. I ordered a stat D-dimer and if it is elevated we will get a CTA chest to rule out pulmonary embolism. Cardiology consult is pending. If he continues to have these episodes, it is not unreasonable to pursue outpatient left heart catheterization. Echocardiogram ordered to assess cardiac structure and has not been done yet. Continue with aspirin, statin. Qualifiers: Chest pain type: unspecified Qualified Code(s): R07.9 - Chest pain, unspecified (2) CAD (coronary artery disease): Assessment and Plan: Non obstructive coronary artery disease on left heart catheterization in 2008. Normal stress test -last year in April. Awaiting cardiology consult. Continue aspirin, statin Qualifiers: Coronary Disease-Associated Artery/Lesion type: [place] artery [place] vs. transplanted heart: [place] heart Associated angina: without angina Qualified Code(s): I25.10 - Atherosclerotic heart disease of [place] coronary artery without angina pectoris (3) Seizure disorder: Assessment and Plan: Seizure-free. Continue with home meds. (4) HLD (hyperlipidemia): Assessment and Plan: Continue with Lipitor. Qualifiers: Hyperlipidemia type: unspecified Qualified Code(s): E78.5 - Hyperlipidemia, unspecified
[2025-01-10 11:40] LABS: D Dimer 0.46 mg/L FEU (<=0.59)
--- NOTE | 2025-01-10 18:29 | P.CACN_ITS ---
History of Present Illness History of Present Illness Consult date: 01/10/25 Requesting physician: Shaikh Florentin Consult reason: chest pain Chief complaint: Chest Pain Narrative: This is a 69-year-old man with prior history of coronary artery disease by cardiac catheterization performed more than 10 years ago, hypertension, hyperlipidemia, morbid obesity and a history of seizure controlled with medications, who is admitted because of chest pain. He reports that yesterday he was sitting at his house without any activities and he developed a 8 out of 10 that went across the chest. The pain is described as significant pressure sensation. He took sublingual nitroglycerin but the pain persisted. EMS were called and he was given a nitro patch and 4 aspirin pills and he reports that the pain then subsided. He was brought to the [facility] where he was admitted for further management. His ECG showed sinus rhythm. His troponin is negative. His echocardiogram today showed normal ventricular function with no significant valvular dysfunction. There was no pedal effusion. Currently he reports that he has been feeling better. There has been no recurrence of the pain. His blood pressure is mildly elevated. He is concerned about the the episode that happened yesterday. His home medication regimen includes aspirin, atorvastatin and furosemide as well as his seizure medications. Review of Systems ROS Status of ROS 10 or more systems reviewed and unremark able except as noted in history and below Cardiovascular Reports: chest pain Neurological Reports: seizure-like activity [facility] Medical History (Updated 01/10/25 @ 18:37 by COLE MOREIRA) Seizure disorder ?G40.909 - Epilepsy, unspecified, not intractable, without status epilepticus (ICD-10) CAD (coronary artery disease) ?I25.10 - Atherosclerotic heart disease of telida coronary artery without angina pectoris (ICD-10) Cervical vertebral fusion ?M43.22 - Fusion of spine, cervical region (ICD-10) Lipoma of axilla ?D17.20 - Benign lipomatous neoplasm of skin and subcutaneous tissue of unspecified limb (ICD-10) Rupture, tendon, Achilles ?S86.019A - Strain of unspecified Achilles tendon, initial encounter (ICD-10) Syncope ?R55 - Syncope and collapse (ICD-10) Seizure ?R56.9 - Unspecified convulsions (ICD-10) Malignant neoplasm of mediastinum ?C38.3 - Malignant neoplasm of mediastinum, part unspecified (ICD-10) Depression ?F32.A - Depression, unspecified (ICD-10) Dyslipidemia ?E78.5 - Hyperlipidemia, unspecified (ICD-10) Deviated nasal septum ?J34.2 - Deviated nasal septum (ICD-10) Degenerative lumbar spinal stenosis ?M48.061 - Spinal stenosis, lumbar region without neurogenic claudication (ICD-10) 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 - Drug-induced polyneuropathy (ICD-10) ?T45.1X5A - Adverse effect of antineoplastic and immunosuppressive drugs, initial encounter (ICD-10) CAD, multiple vessel ?I25.10 - Atherosclerotic heart disease of telida coronary artery without angina pectoris (ICD-10) 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 - Malignant neoplasm of mediastinum, part unspecified (ICD-10) Bladder cancer ?C67.9 - Malignant neoplasm of bladder, unspecified (ICD-10) HLD (hyperlipidemia) ?E78.5 - Hyperlipidemia, unspecified (ICD-10) Chest pain ?R07.9 - Chest pain, unspecified (ICD-10) Surgical History (Updated 12/11/24 @ 07:49 by Sandy Holley) History of cataract surgery ?Z98.49 - Cataract extraction status, unspecified eye (ICD-10) History of foot surgery ?Z98.890 - Other specified postprocedural states (ICD-10) History of esophagogastroduodenoscopy (EGD) ?Z98.890 - Other specified postprocedural states (ICD-10) History of colonoscopy ?Z98.890 - Other specified postprocedural states (ICD-10) History of neck surgery ?Z98.890 - Other specified postprocedural states (ICD-10) H/O shoulder surgery ?Z98.890 - Other specified postprocedural states (ICD-10) History of cholecystectomy ?Z90.49 - Acquired absence of other specified parts of digestive tract (ICD- 10) Family History (Updated 12/04/24 @ 14:46 by Jackie Nielson) Father Family history of myocardial infarction Sister Family history of cancer Other Family history of coronary artery disease Family history of diabetes mellitus Family history of gastric cancer Family history of heart disease Family history of hypertension Family history of kidney cancer Family history of stroke Social History (Updated 01/09/25 @ 23:51 by Amie Florian RN) Within the past year, how often did you have a drink containing alcohol: never Score interpretation: A score less than 4 is consistent with normal alcohol consumption. Smoking status: Former smoker Non-prescribed substance use: denies use Previous occupational history: retired Highest level of school completed/degree received: Associate degree: academic program Are you now , , , , never or living with a partner: In a typical week, how many times do you talk on the telephone with family, friends, or neighbors: 3 or more times per week How often do you get together with friends or relatives: 3 or more times per week Little interest or pleasure in doing things: several days Feeling down, depressed, or hopeless: several days Feel stressed/tense/nervous/anxious/difficulty sleeping: to some extent Life stressors: other Life stressor details: health Gender Identity: male Meds Home Medications and Allergies Home Medications ?Medication ?Instructions ?Recorded ?Confirmed ?Type atorvastatin 10 mg tablet 10 mg PO .hs 05/12/23 01/09/25 History citalopram 40 mg tablet 40 mg PO DAILY 05/12/23 01/09/25 History meclizine 25 mg tablet 25 mg PO QID PRN dizziness 05/12/23 01/09/25 History phenobarbital 32.4 mg tablet 32.4 mg PO Q12H 05/12/23 01/09/25 History phenytoin sodium extended 100 mg 200 mg PO TID 05/12/23 01/09/25 History capsule hydrocodone 5 mg-acetaminophen 325 1 tab PO Q6H PRN pain 3 days #12 02/19/24 01/09/25 Rx mg tablet tabs furosemide 40 mg tablet 40 mg PO DAILY edema 05/24/24 01/09/25 History nitroglycerin 0.3 mg sublingual 0.3 mg sublingual Q5M PRN chest 05/24/24 01/09/25 History tablet pain potassium chloride 20 mEq 20 meq PO DAILY PRN hypokalemia 05/24/24 01/09/25 History tablet,extended release methocarbamol 750 mg tablet 750 mg PO Q8H PRN muscle spasm 12/04/24 01/09/25 History psyllium husk 0.4 gram capsule 0.4 g PO DAILY 12/04/24 01/09/25 History (Daily Fiber) aspirin 81 mg tablet,delayed 81 mg PO DAILY 01/09/25 01/09/25 History release (Adult Low Dose Aspirin) Allergies Allergy/AdvReac Type Severity Reaction Status Date / Time oxycodone (From OxyContin) Allergy Severe Anaphylaxis Verified 01/09/25 19:42 gabapentin Allergy Unknown Unknown Verified 01/09/25 19:42 phenytoin (From Dilantin) AdvReac Severe Dizziness Verified 01/09/25 19:42 Exam Constitutional Vital Signs, click to edit/add: Last Vital Signs Temp 98.1 F 01/10/25 14:34 Pulse 81 01/10/25 17:37 Resp 18 01/10/25 14:34 BP 155/85 H 01/10/25 14:34 Pulse Ox 90 L 01/10/25 14:34 O2 Del Method Room Air 01/10/25 14:34 Common normals: no apparent distress, oriented x3, alert and well nourished General appearance: cooperative Nutritional appearance: obese Orientation/consciousness: Yes awake, Yes oriented to person, Yes oriented to place and Yes oriented to time HENMT Common normals: normocephalic Eye Common normals: conjunctivae normal and no scleral icterus Neck & C-Spine Carotids: no bruit Chest Common normals: inspection of chest normal Respiratory Common normals: normal respiratory effort, no retractions, no use of accessory muscles and clear to auscultation bilaterally Auscultation: no crackles Cardio Common normals: no JVD, regular rate, regular rhythm, S1 normal heart sound, S2 normal heart sound, no gallops, no clicks, no murmurs and no rub Peripheral pulses: radial pulses present GI Common normals: Normal to inspection, nondistended, normoactive bowel sounds present Extremity Common normals: normal to inspection General: no edema Neuro Common normals: oriented x3 Sensorium/orientation: awake, alert, oriented to person, oriented to place and oriented to time Psych Insight: insight good Judgement: judgment good Results Labs and Meds Lab results: Cardiac Enzymes 01/09/25 01/10/25 Range/Units 19:44 05:01 AST 20 20 (15-37) U/L Coagulation 01/09/25 Range/Units 19:44 PT 10.8 (9.0-11.6) sec CBC 01/09/25 01/10/25 Range/Units 19:44 05:01 WBC 7.6 7.6 (4.0-11.0) 10^3/uL RBC 3.87 L 3.90 L (4.70-6.10) 10^6/uL Hgb 13.0 L 12.9 L (14.0-18.0) g/dL Hct 38.7 L 39.6 L (42.0-54.0) % Plt Count 188 177 (150-450) 10^3/uL Neut # (Auto) 4.5 (1.4-6.5) 10^3/uL Lymph # (Auto) 1.8 (1.2-3.8) 10^3/uL Ogle # (Auto) 0.7 (0.3-0.8) 10^3/uL Eos # (Auto) 0.5 (0.0-0.7) 10^3/uL Baso # (Auto) 0.1 (0.0-0.1) 10^3/uL Comprehensive Metabolic Panel 01/09/25 01/10/25 Range/Units 19:44 05:01 Sodium 138 139 (136-145) mmol/L Potassium 4.1 4.4 (3.5-5.1) mmol/L Chloride 105 107 (98-107) mmol/L Carbon Dioxide 26.5 26.5 (21.0-32.0) mmol/L BUN 19.0 H 23.0 H (7.0-18.0) mg/dL Creatinine 1.23 1.09 (0.70-1.30) mg/dL Glucose 124 H 127 H (74-106) mg/dL Calcium 8.0 L 7.9 L (8.5-10.1) mg/dL AST 20 20 (15-37) U/L ALT 27 27 (16-63) U/L Alkaline Phosphatase 164 H 157 H (46-116) U/L Total Protein 8.0 7.5 (6.4-8.2) g/dL Albumin 2.9 L 2.6 L (3.4-5.0) g/dL Intake and Output 01/10/25 01/10/25 01/10/25 07:59 15:59 23:59 Intake Total 550 / 550 Balance 550 / 550 Intake: Oral 550 / 550 Other: # Unmeasured Voids 4 Assessment and Plan Assessment and Plan (1) Chest pain: Qualifiers: Chest pain type: chest pain due to myocardial ischemia Ischemic chest pain type: unstable angina pectoris Qualified Code(s): I20.0 - Unstable angina (2) CAD (coronary artery disease): Qualifiers: Coronary Disease-Associated Artery/Lesion type: telida artery [place] vs. transplanted heart: telida heart Associated angina: with unstable angina Qualified Code(s): I25.110 - Atherosclerotic heart disease of telida coronary artery with unstable angina pectoris (3) Seizure disorder: (4) HLD (hyperlipidemia): Qualifiers: Hyperlipidemia type: unspecified Qualified Code(s): E78.5 - Hyperlipidemia, unspecified (5) Essential (primary) hypertension: Plan His chest pain is very suggestive of unstable angina. He has prior history of coronary artery disease by cardiac catheterization more than 10 years ago. He has multiple risk factors for coronary disease including hypertension, hyperlipidemia morbid obesity. I explained to him that so far given the negative cardiac enzymes there has been no myocardial infarction. The echocardiogram shows normal ventricular function. However given the typical character of the pain hide suggestive of coronary ischemia, I recommend proceeding with cardiac catheterization. I explained the procedure in detail along with risks and benefits including risk of micro stroke and . He understands and agrees to proceed. I will transfer him to the [facility] for that purpose. Meanwhile I will start him on intravenous heparin. I have contacted the [facility] and arranged for transfer and a bed in the stepdown unit. I contacted Dr. Lerma and discussed the above with him. He is in agreement.
[2025-01-10 19:32] LABS: INR 1.03; Partial Thromboplastin Time 28.8 sec (22.3-36.2); Prothrombin Time 10.9 sec (9.0-11.6)
[2025-01-10] MEDS: HEPARIN SODIUM (PORCINE) 5,000 UNIT/ML VIAL 4000 UNIT IV (20:17)
[2025-01-10] MEDS: HEPARIN SODIUM,PORCINE/D5W 25,000 UNIT/500 ML IV.SOLN 24.96 UNIT IV (20:18)
--- NOTE | 2025-01-10 23:16 | PC.NURSE ---
Called report to Soha at [facility]
[2025-01-11 05:08] LABS: Phenobarbital, Serum 16 ug/mL (15-40)
== END 2025-01-10 23:10 | disposition short-term general hospital (02) ==
LOC: ER 22:47 → MS 23:34
PROVIDERS: Physician Assistant; Registered Nurse; Admitting Provider Internal Medicine; Emergency Provider Emergency Medicine; PCP Family Medicine; Visit Provider Internal Medicine
DX: I25.110 Atherosclerotic heart disease of native coronary artery with unstable angina pectoris (principal); R07.9 Chest pain, unspecified; I10 Essential (primary) hypertension; E78.5 Hyperlipidemia, unspecified; E66.01 Morbid (severe) obesity due to excess calories; Z90.49 Acquired absence of other specified parts of digestive tract; Z87.891 Personal history of nicotine dependence; G40.909 Epilepsy, unspecified, not intractable, without status epilepticus; Z79.899 Other long term (current) drug therapy; Z79.82 Long term (current) use of aspirin; Z68.41 Body mass index [BMI] 40.0-44.9, adult
CPT/HCPCS: 36415; 71045; 80053; 80184; 80185; 83690; 83880; 84484; 85025; 85027; 85378; 85610; 85730; 93005; 93306; 96372; 96374; 96375; 99285; G0378; J1644; J1650; J1885; J2360; J2405

== ENCOUNTER 2025-01-26 07:43 | Outpatient (OUT) | payer MEDICARE, MEDICAID, SELFPAY ==
--- OUTSIDE RECORDS SUMMARY | 2025-01-26 07:48 | XMS_ITS | CCD ---
Author Organization [facility] Team Providers Care Billing Coordinator Name Role Phone KARINA JAY Attending Unavailable [...] Unavailable WALLACE, DR JIGNESH Means Attending Unavailable NADERER, DR JIGNESH Means Primary Care Unavailable BARBER, DR KELL Brizuela Consulting Unavailable WALLACE, DR JIGNESH Means Consulting Unavailable WALLACE, DR JIGNESH Means Admitting Unavailable WALLACE, DR JIGNESH Means Attending Unavailable WALLACE, DR JIGNESH Means Primary Care Unavailable BARBER, DR KELL Brizuela Consulting Unavailable NADERER, DR CORDOBA A Consulting Unavailable Luiz Riggs Unavailable MD Luiz Riggs Attending Provider MD Jignesh Gonsalez Primary Care Provider JIGNESH GONSALEZ Primary Care Physician Chris CAMARILLO Attending Unavailable JIGNESH GONSALEZ Referring Unavailable Chris CAMARILLO Attending Unavailable MD Jignesh Gonsalez Primary Care Provider [phone] RIDGE Garcia Attending Provider [phone] MD Jignesh Gonsalez Primary Care Provider RIDGE Garcia Attending Provider Jignesh Gonsalez MD Primary Care Provider Jignesh Gonsalez Primary Care Unavailable Joslyn Garcia Attending Unavailable Joslyn Garcia Admitting Unavailable Jignesh Gonsalez Primary Care Unavailable Joslyn Garcia Attending Unavailable Joslyn Garcia Admitting Unavailable Yancy Lawson Admitting Unavailable Jignesh Gonsalez Primary Care Unavailable Lulu Yancy M Attending Unavailable Ame HUDSON Jose G Primary Care Provider [phone] AMRIK PÉREZ Attending Unavailable JIGNESH GONSALEZ Referring Unavailable JIGNESH GONSALEZ Attending Unavailable JIGNESH GONSALEZ Attending Unavailable CORNELIO COTTER Attending Unavailable IMELDA THOMPSON Attending Unavailable JIGNESH GONSALEZ Attending Unavailable IMELDA THOMPSON Attending Unavailable IMELDA THOMPSON Referring Unavailable MARCOSEREJIGNESH Brizuela Attending Unavailable CHARI VELA Attending Unavailable JIGNESH GONSALEZ Attending Unavailable JOSE M REA Attending Unavailable JIGNESH GONSALEZ Referring Unavailable WILLIAM DARRELL Referring Unavailable WILLIAMGISEL STRANGEK Referring Unavailable ARNAUD LYONS Attending Unavailable CORNELIO HODGES Attending Unavailable COLE SMITH Referring Unavailable SAPPHIRESOPHIE REVELES Admitting Unavailable ROZINA JOSHI Attending Unavailable CORNELIO HODGES Referring Unavailable JONY WEBBER Referring Unavailable Allergies Allergy Classification Reported Allergen(s) Allergy Type Date of Onset Reaction(s) Facility Anti-Epileptic Agents (2 sources) gabapentin Drug Allergy 4 stomach upset, IV ONLY-Dizzy [facility] Opioid Agonists (1 source) oxyCODONE Drug Allergy 4 Unknown Reaction [facility] (11 sources) gabapentin; Translations: [GABAPENTIN] Drug Allergy 0 stomach upset [facility] (2 sources) oxyCODONE Drug Allergy 0 [facility] (3 sources) Phenytoin; Translations: [Dilantin] Drug Allergy 0 [facility] (20 sources) gabapentin; Translations: [gabapentin] Drug Allergy 0 Unknown (qualifier value), Unknown [facility] (20 sources) oxyCODONE; Translations: [oxycodone] Drug Allergy 0 Difficulty breathing (finding), Angioedema, Unknown [facility] (16 sources) Phenytoin; Translations: [phenytoin] Drug Allergy 6 Dizziness (finding), Unknown, Dizziness [facility] (1 source) Phenytoin; Translations: [PHENYTOIN SODIUM EXTENDED] Drug Allergy 6 [facility] (1 source) gabapentin Drug Allergy 4 [facility] (1 source) oxyCODONE Drug Allergy 4 [facility] (1 source) Phenytoin Drug Allergy 4 [facility] Medications Current Medications Medication Drug Class(es) Dates Sig (Normalized) Sig (Original) acetaminophen 325 mg / HYDROcodone bitartrate 5 mg oral tablet (20 sources) Opioid Agonist Start: 11-15-2024 End: 11-22-2024 take 1 tablet by mouth four times daily as needed for pain HYDROcodone-acetami nophen ([place]) 5-325 MG tablet Indications: Degenerative lumbar spinal stenosis Take 1 tablet by mouth 4 (four) times a day as needed for severe pain for up to 7 days 28 tablet 11/15/2024 11/22/2024 Active Start: 10-11-2024 End: 11-01-2024 take 1 tablet by mouth four times daily as needed for pain HYDROcodone-acetaminophen ([place]) 5-325 MG tablet Indications: Degenerative lumbar spinal stenosis Take 1 tablet by mouth 4 (four) times a day as needed for severe pain for up to 7 days 28 tablet 10/25/2024 11/01/2024 Active Start: 04-23-2024 take 1 tablet by ambika th four times daily Hydrocodone-Acetaminophen Active 1 TAB P O Four times daily April 23, 2024 12:00am [place] Active take 1 tablet by ambika th every six hours HYDROcodone-Acetaminophen 7.5-325 MG 1 tablet as needed Orally every 6 hrs Active [id number] 200 actuat albuterol 0.09 mg/actuat metered dose inhaler (2 sources) beta2-Adrenergic Agonist Start: 01-21-2025 take 2 puff(s) by inhalation every four hours for wheezing albuterol HFA 90 mcg/act inhaler Indications: SOB (shortness of breath) on exertion Inhale 2 puffs every 4 (four) hours if needed for shortness of breath or wheezing 18 g 2 01/21/2025 Active aspirin 81 mg delayed release oral [...] sources) Serotonin Reuptake Inhibitor Start: 03-19-2024 End: 12-04-2024 take 1 tablet by mouth in the [...] 2 mg/ml injectable solution (1 source) vit H0-L9-H1-B5- B6 (B-COMPLEX INJECTION) 846-9-423-2-2 mg/mL solution B-Complex 1 QD 0 Active fluticasone propionate 0.05 mg/actuat metered dose nasal spray (19 sources) Corticosteroid Start: 10-25-2024 take 2 spray(s) [...] 21 tablet 0 09/26/2021 Active Ibuprofen Active 24 hr isosorbide mononitrate 30 mg extended release oral tablet (2 sources) Nitrate Vasodilator Start: 01-13-2025 End: 05-13-2025 take 1 tablet by mouth in the morning, then take 1 tablet by mouth every twenty-four hours isosorbide mononitrate ER (Imdur) 30 MG 24 hr tablet Take 30 mg by mouth in the morning. 01/13/2025 05/13/2025 Active losartan potassium 25 mg oral tablet (2 sources) Angiotensin 2 Receptor Daisy Start: 01-13-2025 End: 05-13-2025 take 1 tablet by mouth in the morning losartan (Cozaar) 25 MG tablet Take 25 mg by mouth in the morning. 01/13/2025 05/13/2025 Active meclizine hydrochloride 25 mg oral tablet (20 sources) Antiemetic Start: 12-28-2024 take 1 tablet by mouth four times daily at bedtime meclizine (Antivert) 25 MG tablet Indications: Dizziness TAKE 1 TABLET BY MOUTH FOUR TIMES DAILY (IN THE MORNING, at noon, IN THE EVENING and BEFORE bedtime) 30 tablet 3 12/28/2024 Active Start: 04-13-2024 meclizine (Ant ivert) 25 MG [...] mg tablet,disintegrating 1 tablet 0 Active Meloxicam [facility] Meloxicam Active methocarbamol 750 mg oral tablet (20 sources) Muscle Relaxant Start: 11-19-2024 take 1 [...] times daily 10 06September 07, 2024 12:00am 24 hr metoprolol succinate 25 mg extended release oral tablet (2 sources) beta-Adrenergic Daisy Start: 01-13-2025 End: 02-12-2025 take 1 tablet by mouth every twenty-four hours in the morning metoprolol succinate XL (Toprol-XL) 25 MG 24 hr tablet Take 25 mg by mouth in the morning. 01/13/2025 02/12/2025 Active Multiple Vitamins-Minerals (men's 50+ multivitamin w/min) tablet (5 sources) take 1 tablet by mouth once daily Multiple Vitamins-Minerals (men's 50+ multivitamin w/min) tablet Take 1 tablet by mouth Daily Active Multivitamin preparation (7 sources) Start: 04-23-2024 take 1 tablet by mouth once daily Multivitamin Active 1 TAB PO Daily April 23, 2024 12:00am multivitamin-gold miner blasting als-lutein (MULTIVITAMIN 50 PLUS) tablet (1 source) multivitamin-min e rals-lutein (MULTIVITAMIN 50 PLUS) tablet daily. 0 Active [...] Start: 07-18-2024 take 2 tablets by mo uth three times daily PHENobarbital (Luminal) 32.4 MG [...] 1 08/30/2022 Active take 1 capsule by [facility] every twelve hours Phenytoin Sodium Extended 100 [...] Prednisone Discontinued 20 MG PO Twice daily 10 August 16, 2024 12:00am September 07, 2024 3:02pm [...] Problem Classification Problem Date Documented Date Episodic/Chronic Bacterial infection; unspecified site (7 sources) Rheumatic [...] disease (20 sources) Atherosclerotic heart disease of [place] coronary artery without angina pectoris; Translations: [Coronary [...] without status epilepticus] Onset: 06-22-2022 04-23-2024 Chronic Essential hypertension (2 sources) Essential (primary) hypertension; Translations: [Essential (primary) hypertension] Onset: 01-22-2025 Chronic Fracture of upper limb (1 source) [...] 08-16-2022 04-23-2024 Chronic Other aftercare (1 source) custodial (current) use of aspirin; Translations: [SENIOR LIVING CURRENT USE OF ASPIRIN] Onset: 12-27-2022 Episodic Other aftercare (1 source) Other long term care phlebotomist (current) drug therapy; Translations: [OTH SENIOR LIVING CURRENT DRUG THERAPY] Onset: 12-27-2022 Episodic Other [...] Translations: [Impacted cerumen, bilateral] 04-23-2024 Episodic Other lower respiratory disease (4 sources) Dyspnea on exertion; Translations: [Shortness of breath] Onset: 01-21-2025 01-21-2025 Episodic Other lower respiratory disease (2 sources) Other forms of dyspnea; Translations: [Other forms of dyspnea] Onset: 01-05-2024 Episodic Other nervous system disorders (10 sources) [...] Chronic Other nutritional; endocrine; and metabolic disorders (14 sources) Severe obesity; Translations: [Class 3 severe obesity due to excess calories with serious comorbidity and body mass index (BMI) of 40.0 to 44.9 in adult ([facility])] Onset: 01-12-2021 11-22-2024 Chronic Other upper respiratory disease (2 sources) Allergic rhinitis, unspecified; Translations: [Allergic rhinitis, cause unspecified] 08-16-2024 Chronic Other upper respiratory infections (20 sources) Chronic sinusitis, unspecified; Translations: [Chronic rhinitis] [...] lumbar region] Onset: 12-28-2021 Resolved: 05-21-2024 Chronic Superficial injury; contusion (2 sources) Contusion [...] Classification Problem Date Documented Da te Episodic/Chronic Acquired foot deformities (3 sources) Foot drop, left foot; Translations: [Foot drop, left foot] Onset: 08-08-2024 Episodic Epilepsy; convulsions (3 sources) Unspecified convulsions; Translations: [Seizure] Onset: 01-19-1975 07-15-2023 Episodic Mood disorders (20 sources) Mood disorders Onset: 11-29-2023 Resolved: 11-22-2024 11-29-2023 Nonspecific chest pain (4 sources) Chest pain, unspecified; Translations: [CHEST PAIN UNSPECIFIED] Onset: 06-12-2022 Episodic Other aftercare (20 sources) Long-term current use of drug therapy; Translations: [Other long term care phlebotomist (current) drug therapy] Onset: 11-29-2023 11-29-2023 Episodic Other aftercare (20 sources) Post-discharge follow-up; Translations: [Encounter for follow-up examination after completed treatment for conditions other than malignant neoplasm] Onset: 01-11-2024 Resolved: 02-21-2024 02-21-2024 Episodic Other aftercare (1 source) Patient encounter status; Translations: [Other long term care phlebotomist (current) drug therapy] Onset: 11-29-2023 11-29-2023 Episodic Other connective tissue disease (4 sources) Pain in right foot; Translations: [PAIN IN RIGHT FOOT] Onset: 09-29-2022 Episodic Other connective tissue disease (2 sources) Repeated falls; Translations: [Repeated falls] Onset: 08-08-2024 Episodic Other fractures (20 sources) Closed fracture [...] 06-22-2022 11-29-2023 Episodic Other upper respiratory disease (20 sources) Deviated nasal septum; Translations: [Deviated nasal septum] Onset: 10-26-2023 10-26-2023 Episodic Residual codes; unclassified (20 sources) Bilateral lower limb edema; Translations: [Localized edema] Onset: 02-21-2024 02-21-2024 Episodic Spondylosis; intervertebral disc disorders; other back problems (20 sources) Pain in thoracic spine; Translations: [Degenerative lumbar spinal stenosis] Onset: 06-22-2022 11-29-2023 Episodic Sprains and strains (1 source) Sprain of unspecified site of left knee, initial encounter; Translations: [SPRAIN UNS SITE LT KNEE INITIAL] Onset: 08-25-2022 Episodic Syncope (20 sources) Syncope and collapse; Translations: [Syncope and collapse] Onset: 11-07-2022 Resolved: 11-29-2023 Episodic Unclassified (2 sources) Patient encounter status 10-25-2024 Results Test Name Value Interpretation Reference Range Facility Office Visiton 01-22-2025 Follow-up visit [id number] Nazario Cortes 1955 M Date Provider Department Center 01/22/2025 Lily-ARNAUD LYONS Humberto Bre Family History Problem Relation Age of Onset Supraventricular tachycardia Mother Stroke Father Kidney cancer Sister Diabetes Sister COPD Brother Family Status - Relation Status Age at Mother Father Sister Brother Level of Service:58016 [place] OFFICE/OUTPATIENT ESTABLISHED LOW MDM 20 MIN Normal [facility] BASIC METABOLIC PANELon 12-23 Anion gap [Moles/Vol] 11 mmol/L Normal 7-20 [facility] Comment on above: Performed By: #### L [id number] #### [facility] ([facility]) [address] [place] [address] Calcium [Mass/Vol] 8.8 mg/dL Normal 8.6-10.3 [facility] Comment on above: Performed By: #### L [id number] #### [facility] [address] [place] [address] Chloride [Moles/Vol] 104 mmol/L Normal 98-107 [facility] Comment on above: Performed By: #### L [id number] #### [facility] ([facility]) [address] [place] [address] CO2 [Moles/Vol] 24 mmol/L Normal 21-31 [facility] Comment on above: Performed By: #### L [id number] #### [facility] ([facility]) [address] [place] [address] Creatinine [Mass/Vol] 0.81 mg/dL Normal 0.70-1.30 [facility] Comment on above: Performed By: #### L [id number] #### [facility] ([facility]) [address] [place] [address] GLOMERULAR FILTRATION RATE ML/MIN/1.73 SQ M.PREDICTED 95.4 mL/min/1.73m*2 Normal >60.0 [facility] Comment on above: Result Comment: [facility]???s estimated glomerular filtration rate (eGFR) will no longer include consideration of race in its calculation. The National Kidney Foundation???s eGFR Task Force developed new recommendations for the estimation of the glomerular filtration rate in the [place] They recommend immediate implementation of the new equation refit without the race variable in all laboratories because the calculation does not include race. In addition to not including race in the calculation and reporting, it included diversity in its development, and has acceptable performance characteristics and potential consequences that do not disproportionately affect any one group of individuals. Performed By: #### L [id number] #### [facility] ([facility]) [address] [place] [address] Glucose [Mass/Vol] 114 mg/dL High 70-100 [facility] Comment on above: Performed By: #### L [id number] #### [facility] ([facility]) [address] [place] [address] Potassium [Moles/Vol] 4.2 mmol/L Normal 3.5-5.1 [facility] Comment on above: Performed By: #### L [id number] #### [facility] [address] [place] [address] Sodium [Moles/Vol] 135 mmol/L Low 136-145 [facility] Comment on above: Performed By: #### L [id number] #### [facility] [address] [place] [address] Urea nitrogen [Mass/Vol] 23 mg/dL Normal 7-25 [facility] Comment on above: Performed By: #### L [id number] #### [facility] [address] [place] [address] UREA NITROGEN/CREATININE (MASS RATIO) IN SER/PLAS 28.4 Normal [facility] Comment on above: Performed By: #### L [id number] #### [facility] ([facility]) [address] [place] [address] FOLATEon 01-13-2025 FOLATE (NG/ML) IN SER/PLAS 20.54 ng/mL Normal 6.6-1000 [facility] Comment on above: Performed By: #### L [id number] #### [facility] ([facility]) [address] [place] [address] NURSNOTEon 01-13-2025 NURSNOTE Pt discharged with a ll belongings, discharge paperwork, and questions answered to pt's satisfaction. [facility] VITAMIN B12on 01-13-2025 Cobalamin (Vitamin B12) [Mass/Vol] 353 pg/mL Normal 180-914 [facility] Comment on above: Result Comment: REFE RENCE RANGES: 180-914 pg/mL Normal 145-179 pg/mL Indeterminate <145 pg/mL Deficient Performed By: #### L [id number] #### [facility] ([facility]) [address] [place] [address] 30on 01-12-2025 30 The patient is Moderately Stable - Low risk of patient condition declining or worsening The patient's goals for the shift include comfort, rest The clinical goals for the shift include vss, safety Over the shift, the patient did make progress toward the following goals. Problem: Pain - Adult Goal: Verbalizes/displays adequate comfort level or baseline comfort level Outcome: Progressing Flowsheets (Taken 01/12/20252244) Verbalizes/displays adequate comfort level or baseline comfort level: Encourage patient to monitor pain and request assistance Assess pain using appropriate pain scale Administer analgesics based on type and severity of pain and evaluate response Implement non-pharmacological measures as appropriate and evaluate response Consider cultural and social influences on pain and pain management Notify Licensed Independent Practitioner if interventions unsuccessful or patient reports new pain Problem: Safety - Adult Goal: Free from fall injury Outcome: Progressing Flowsheets (Taken 01/12/20251946) Free from fall injury: Assess patient frequently for physical needs Identify cognitive and physical deficits and behaviors that affect risk of falls [place] fall precautions as indicated by assessment Educate patient/family on patient safety, including physical limitations Instruct patient to call for assistance with activity based on assessment Modify environment to reduce risk of injury Consider OT/PT consult to assist with strengthening/mobility Problem: Discharge Planning Goal: Discharge to home or other facility with appropriate resources Outcome: Progressing Flowsheets (Taken 01/12/20251946) Discharge to home or other facility with appropriate resources: Identify barriers to discharge with patient and caregiver Arrange for needed discharge resources and transportation as appropriate Identify discharge learning needs (meds, wound care, etc) Arrange for interpreters to assist at discharge as needed Refer to discharge planning if patient needs post-hospital services based on physician order or complex needs related to functional status, cognitive ability or social support system Problem: Chronic Conditions and Co-morbidities Goal: Patient's chronic conditions and co-morbidity symptoms are monitored and maintained or improved Outcome: Progressing Flowsheets (Taken 01/12/20251946) Care Plan - Patient's Chronic Conditions and Co-Morbidity Symptoms are Monitored and Maintained or Improved: Monitor and assess patient's chronic conditions and comorbid symptoms for stability, deterioration, or improvement Collaborate with multidisciplinary team to address chronic and comorbid conditions and prevent exacerbation or deterioration Update acute care plan with appropriate goals if chronic or comorbid symptoms are exacerbated and prevent overall improvement and discharge Normal [facility] 30 The patient is Moderately Stable - Low risk of patient condition declining or worsening The patient's goals for the shift include comfort, rest The clinical goals for the shift include vss, safety Normal [facility] B-TYPE NATRIURETIC PEPTIDEon 01-12-2025 Natriuretic peptide B (Bld) [Mass/Vol] 34 pg/mL Normal 0-100 [facility] Comment on above: Performed By: #### L [id number] #### [facility] ([facility]) [address] [place] [address] BASIC METABOLIC PANELon 12-23 Anion gap [Moles/Vol] 10 mmol/L Normal 7-20 [facility] Comment on above: Performed By: #### L [id number] #### [facility] ([facility]) [address] [place] [address] Calcium [Mass/Vol] 8.4 mg/dL Low 8.6-10.3 [facility] Comment on above: Performed By: #### L [id number] #### [facility] ([facility]) [address] [place] [address] Chloride [Moles/Vol] 101 mmol/L Normal 98-107 [facility] Comment on above: Performed By: #### L [id number] #### [facility] [address] [place] [address] CO2 [Moles/Vol] 26 mmol/L Normal 21-31 [facility] Comment on above: Performed By: #### L [id number] #### [facility] ([facility]) [address] [place] [address] Creatinine [Mass/Vol] 0.79 mg/dL Normal 0.70-1.30 [facility] Comment on above: Performed By: #### L [id number] #### [facility] ([facility]) [address] [place] [address] GLOMERULAR FILTRATION RATE ML/MIN/1.73 SQ M.PREDICTED 96.2 mL/min/1.73m*2 Normal >60.0 [facility] Comment on above: Result Comment: [facility]???s estimated glomerular filtration rate (eGFR) will no longer include consideration of race in its calculation. The National Kidney Foundation???s eGFR Task Force developed new recommendations for the estimation of the glomerular filtration rate in the [place] They recommend immediate implementation of the new equation refit without the race variable in all laboratories because the calculation does not include race. In addition to not including race in the calculation and reporting, it included diversity in its development, and has acceptable performance characteristics and potential consequences that do not disproportionately affect any one group of individuals. Performed By: #### L [id number] #### [facility] ([facility]) [address] [place] [address] Glucose [Mass/Vol] 114 mg/dL High 70-100 [facility] Comment on above: Performed By: #### L [id number] #### [facility] ([facility]) [address] [place] [address] Potassium [Moles/Vol] 4.2 mmol/L Normal 3.5-5.1 [facility] Comment on above: Performed By: #### L [id number] #### [facility] ([facility]) [address] [place] [address] Sodium [Moles/Vol] 133 mmol/L Low 136-145 [facility] Comment on above: Performed By: #### L [id number] #### [facility] ([facility]) [address] [place] [address] Urea nitrogen [Mass/Vol] 20 mg/dL Normal 7-25 [facility] Comment on above: Performed By: #### L [id number] #### [facility] ([facility]) [address] [place] [address] UREA NITROGEN/CREATININE (MASS RATIO) IN SER/PLAS 25.3 Normal [facility] Comment on above: Performed By: #### L [id number] #### [facility] ([facility]) [address] [place] [address] CBCon 01-12-2025 Erythrocyte distribution width (RBC) [Ratio] 13.3 % Normal 11.5-15.0 [facility] Comment on above: Performed By: #### L [id number] #### [facility] ([facility]) [address] [place] [address] ERYTHROCYTE MEAN CORPUSCULAR HEMOGLOBIN CONCENTRATION (G/DL) BY AUTOMATED 32.7 g/dL Normal 32.0-35.0 [facility] Comment on above: Performed By: #### L [id number] #### [facility] CAMPUS) [address] [place] [address] Hematocrit (Bld) [Volume fraction] 41.0 % Normal 39.0-55.0 [facility] Comment on above: Performed By: #### L [id number] #### [facility] [address] [place] [address] Hemoglobin (Bld) [Mass/Vol] 13.4 g/dL Normal 13.0-17.0 [facility] Comment on above: Performed By: #### L [id number] #### [facility] ([facility] [address] [place] [address] MCH (RBC) [Entitic mass] 32.8 pg Normal 27.0-33.0 [facility] Comment on above: Performed By: #### L [id number] #### [facility] ([facility]) [address] [place] [address] MCV (RBC) [Entitic vol] 100.2 fL High 82.0-98.0 [facility] Comment on above: Performed By: #### L [id number] #### [facility] ([facility]) [address] [place] [address] PLATELETS (10*3/UL) IN BLOOD AUTOMATED COUNT 197 10*3/uL Normal 150-400 [facility] Comment on above: Performed By: #### L [id number] #### [facility] ([facility]) [address] [place] [address] RBC (Bld) [#/Vol] 4.09 10*6/uL Low 4.20-5.70 [facility] Comment on above: Performed By: #### L [id number] #### [facility] ([facility]) [address] [place] [address] WBC (Bld) [#/Vol] 8.31 10*3/uL Normal 4.00-10.60 [facility] Comment on above: Performed By: #### L [id number] #### [facility] ([facility]) [address] [place] [address] HEMOGLOBIN A1Con 01-12-2025 Glucose [Mass/Vol] 108 mg/dL Normal [facility] Comment on above: Performed By: #### L [id number] #### [facility] ([facility]) [address] [place] [address] HbA1c (Bld) [Mass fraction] 5.4 % Normal 4.0-6.0 [facility] Comment on above: Performed By: #### L [id number] #### [facility] ([facility]) [address] [place] [address] HEPATIC FUNCTION PANELon Albumin [Mass/Vol] 3.7 g/dL Normal 3.5-5.7 [facility] Comment on above: Performed By: #### L [id number] ####[facility] ([facility]ER)[address] [place] [address] ALP [Catalytic activity/Vol] 152 U/L High 34-104 [facility] Comment on above: Performed By: #### L [id number] ####[facility] ([facility])[address] [place] [address] ALT [Catalytic activity/Vol] 20 U/L Normal 7-52 [facility] Comment on above: Performed By: #### L [id number] ####[facility] ([facility])[address] [place] [address] AST [Catalytic activity/Vol] 25 U/L Normal 13-39 [facility] Comment on above: Performed By: #### L [id number] ####[facility] ([facility])[address] [place] [address] Bilirubin [Mass/Vol] 0.5 mg/dL Normal 0.3-1.0 [facility] Comment on above: Performed By: #### L [id number] ####[facility] ([facility])[address] [place] [address] Magnesium [Mass/Vol] 0.1 mg/dL Normal 0-0.2 [facility] Comment on above: Performed By: #### L [id number] ####[facility] (BE[facility]ER)[address] [place] [address] Protein [Mass/Vol] 8.1 g/dL Normal 6.0-8.3 [facility] Comment on above: Performed By: #### L [id number] ####[facility] (BE[facility]ER)[address] [place] [address] LIPID PANELon 01-12-2025 CHOL/HDL 3.3 mg/dL Normal [facility] Comment on above: Performed By: #### L [id number] ####[facility] (BE[facility]ER)[address] [place] [address] Cholesterol [Mass/Vol] 140 mg/dL Normal 120-200 [facility] Comment on above: Performed By: #### L [id number] ####[facility] ([facility])[address] [facility] [place] [address] Magnesium [Mass/Vol] 230 mg/dL High 40-149 [facility] Comment on above: Result Comment: TRIG LYCERIDE REFERENCE RANGE: 20 YEARS AND OLDER CARDIOVASCULAR RISK LESS THAN 150 mg/dL LOW RISK 150 TO 199 mg/dL BORDERLINE RISK 200 mg/dL AND GREATER HIGH RISK Performed By: #### L [id number] ####[facility] ([facility])[address] [facility] [place] [address] Magnesium [Mass/Vol] 51 mg/dL Normal 0-160 [facility] Comment on above: Performed By: #### L [id number] ####[facility] ([facility])[address] [place] [address] Magnesium [Mass/Vol] 43 mg/dL Normal 23-92 [facility] Comment on above: Performed By: #### L [id number] ####[facility] ([facility])[address] [place] [address] NON HDL CHOL. (LDL+VLDL) 97 Normal [facility] Comment on above: Performed By: #### L [id number] ####[facility] ([facility])[address] [facility] [place] [address] TOTAL VLDL-C 46 mg/dL High 0-40 [facility] Comment on above: Performed By: #### L [id number] ####[facility] ([facility])[address] [facility] [place] [address] MAGNESIUMon 01-12-2025 Magnesium [Mass/Vol] 1.9 mg/dL Normal 1.9-2.7 [facility] Comment on above: Performed By: #### L [id number] #### [facility] ([facility]) [address] [place] [address] 30on 01-11-2025 30 The patient is Moderately Stable - Low risk of patient condition declining or worsening The patient's goals for the shift include comfort complete testing The clinical goals for the shift include vss Over the shift, the patient did make progress toward the following goals. Barriers to progression include n/a. Recommendations to address these barriers include n/a. Problem: Pain - Adult Goal: Verbalizes/displays adequate comfort level or baseline comfort level Outcome: Progressing Problem: Safety - Adult Goal: Free from fall injury Outcome: Progressing Problem: Discharge Planning Goal: Discharge to home or other facility with appropriate resources Outcome: Progressing Problem: Chronic Conditions and Co-morbidities Goal: Patient's chronic conditions and co-morbidity symptoms are monitored and maintained or improved Outcome: Progressing Normal [facility] 30 Daily Case Managemen t Update Multidisciplinary rounds have been completed. Barriers to Discharge: Patient presented to [place] with chest pain, and was transferred to [facility] for heart cath. Patient to go for heart cath today. Diet: Dietary Orders (From admission, onward) Start Ordered 01/11/25135 Regular Diet Heart Healthy/HTN, CABG,Stroke, (2gNA, low fat, low cholesterol) Diet effective now Question Answer Comment Room Service? Yes Fat restriction: Heart Healthy/HTN, CABG,Stroke, (2gNA, low fat, low cholesterol) 01/11/25136 Physician Expected Discharge Date: 01/12/2025 Discharge Delays: PT Six Click Score: OT Six Click Score: PT Recommendations: OT Recommendations: New Consults: Consult Orders (From admission, onward) Start Ordered 01/11/25136 Inpatient consult to Cardiology Once Specialty: Cardiology Provider: (Not yet assigned) Question Answer Comment Reason for Consult? Unstable angina [employer] CARDIOLOGY TEAM Level of Consultation Consultation and Management 01/11/25136 Normal [facility] 30 The patient is Moderately Stable - Low risk of patient condition declining or worsening The patient's goals for the shift include COMFORT The clinical goals for the shift include VSS Problem: Pain - Adult Goal: Verbalizes/displays adequate comfort level or baseline comfort level Outcome: Progressing Problem: Safety - Adult Goal: Free from fall injury Outcome: Progressing Problem: Discharge Planning Goal: Discharge to home or other facility with appropriate resources Outcome: Progressing Flowsheets (Taken 01/11/2025 0057) Discharge to home or other facility with appropriate resources: Identify barriers to discharge with patient and caregiver Arrange for needed discharge resources and transportation as appropriate Identify discharge learning needs (meds, wound care, etc) Problem: Chronic Conditions and Co-morbidities Goal: Patient's chronic conditions and co-morbidity symptoms are monitored and maintained or improved Outcome: Progressing Flowsheets (Taken 01/11/2025 0057) Care Plan - Patient's Chronic Conditions and Co-Morbidity Symptoms are Monitored and Maintained or Improved: Monitor and assess patient's chronic conditions and comorbid symptoms for stability, deterioration, or improvement Collaborate with multidisciplinary team to address chronic and comorbid conditions and prevent exacerbation or deterioration Update acute care plan with appropriate goals if chronic or comorbid symptoms are exacerbated and prevent overall improvement and discharge Normal [facility] 30 The patient is Moderately Stable - Low risk of patient condition declining or worsening The patient's goals for the shift include Comfort The clinical goals for the shift include VSS Normal [facility] ANESon 01-11-2025 ANES -- Attestation signed by Arnaud Lyons MD at 01/11/2025 1:02 PM Arnaud Lyons MD, MPH, [facility], [facility], [facility] Interventional Cardiology Pager Email: [email or web address] Patient: Nazario Cortes Procedure Information Date/Time: 01/11/25 5691 Procedure: Coronary angiography Location: [facility] [employer] [facility] / [facility] (Cath) Providers: Arnaud Lyons MD Clinical information reviewed: Allergies Meds Problems Physical Exam Airway Mallampati: III TM distance: >3 FB Neck ROM: full Cardiovascular Rhythm: regular Rate: normal Dental Pulmonary - normal exam Breath sounds clear to auscultation Abdominal Abdomen: soft Anesthesia Plan ASA 3 (Moderate sedation) Anesthetic plan and risks discussed with patient. Use of blood products discussed with patient who consented to blood products. Plan discussed with fellow and attending. Additional Equipment Requests Normal [facility] APTTon 01-11-2025 ACTIVATED PARTIAL THROMBOPLASTIN TIME IN PPP BY COAGULATION ASSAY 26.3 Seconds Normal 25.0-35.0 [facility] Comment on above: Order Comment: Basel ine aPTT before initiating heparin infusion. Result Comment: Clin ical significance of the APTT is questionable in the presence of heparin. Performed By: #### L [id number] #### [facility] ([facility]) [address] [place] [address] BASIC METABOLIC PANELon 12-23 Anion gap [Moles/Vol] 9 mmol/L Normal 7-20 [facility] Comment on above: Performed By: #### L [id number] #### [facility] ([facility]) [address] [place] [address] Calcium [Mass/Vol] 8.3 mg/dL Low 8.6-10.3 [facility] Comment on above: Performed By: #### L [id number] #### [facility] ([facility]) [address] [place] [address] Chloride [Moles/Vol] 103 mmol/L Normal 98-107 [facility] Comment on above: Performed By: #### L [id number] #### [facility] (BEAKER) [address] [place] [address] CO2 [Moles/Vol] 26 mmol/L Normal 21-31 [facility] Comment on above: Performed By: #### L [id number] #### [facility] ([facility]ER) [address] [place] [address] Creatinine [Mass/Vol] 0.81 mg/dL Normal 0.70-1.30 [facility] Comment on above: Performed By: #### L [id number] #### [facility] ([facility]AKER) [address] [place] [address] GLOMERULAR FILTRATION RATE ML/MIN/1.73 SQ M.PREDICTED 95.4 mL/min/1.73m*2 Normal >60.0 [facility] Comment on above: Result Comment: The [facility]???s estimated glomerular filtration rate (eGFR) will no longer include consideration of race in its calculation. The National Kidney Foundation???s eGFR Task Force developed new recommendations for the estimation of the glomerular filtration rate in the [place] They recommend immediate implementation of the new equation refit without the race variable in all laboratories because the calculation does not include race. In addition to not including race in the calculation and reporting, it included diversity in its development, and has acceptable performance characteristics and potential consequences that do not disproportionately affect any one group of individuals. Performed By: #### L [id number] #### [facility] ([facility]) [address] [place] [address] Glucose [Mass/Vol] 105 mg/dL High 70-100 [facility] Comment on above: Performed By: #### L [id number] #### [facility] ([facility]) [address] [place] [address] Potassium [Moles/Vol] 4.1 mmol/L Normal 3.5-5.1 [facility] Comment on above: Performed By: #### L [id number] #### [facility] ([facility]) [address] [place] [address] Sodium [Moles/Vol] 134 mmol/L Low 136-145 [facility] Comment on above: Performed By: #### L [id number] #### [facility] ([facility]) [address] [place] [address] Urea nitrogen [Mass/Vol] 18 mg/dL Normal 7-25 [facility] Comment on above: Performed By: #### L [id number] #### [facility] ([facility]) [address] [place] [address] UREA NITROGEN/CREATININE (MASS RATIO) IN SER/PLAS 22.2 Normal [facility] Comment on above: Performed By: #### L [id number] #### [facility] ([facility]) [address] [place] [address] CBC WITH AUTO DIFFERENTIALon 01-11-2025 Basophils (Bld) [#/Vol] 0.08 10*3/uL Normal 0.00-0.20 [facility] Comment on above: Performed By: #### L [id number] #### [facility] ([facility]) [address] [facility] [place] [address] Basophils/100 WBC (Bld) 0.9 % Normal 0.0-1.0 [facility] Comment on above: Performed By: #### L [id number] #### [facility] ([facility]) [address] [place] [address] Eosinophils (Bld) [#/Vol] 0.56 10*3/uL High 0.00-0.50 [facility] Comment on above: Performed By: #### L [id number] #### [facility] ([facility]) [address] [place] [address] Eosinophils/100 WBC (Bld) 6.5 % High 0.0-6.0 [facility] Comment on above: Performed By: #### L [id number] #### [facility] ([facility]) [address] [place] [address] Erythrocyte distribution width (RBC) [Ratio] 13.5 % Normal 11.5-15.0 [facility] Comment on above: Performed By: #### L [id number] #### [facility] ([facility]) [address] [place] [address] ERYTHROCYTE MEAN CORPUSCULAR HEMOGLOBIN CONCENTRATION (G/DL) BY AUTOMATED 32.7 g/dL Normal 32.0-35.0 [facility] Comment on above: Performed By: #### L [id number] #### [facility] ([facility]) [address] [place] [address] Hematocrit (Bld) [Volume fraction] 39.8 % Normal 39.0-55.0 [facility] Comment on above: Performed By: #### L [id number] #### [facility] (BEAKER) [address] [place] [address] Hemoglobin (Bld) [Mass/Vol] 13.0 g/dL Normal 13.0-17.0 [facility] Comment on above: Performed By: #### L [id number] #### [facility] [address] [place] [address] Immature granulocytes (Bld) [#/Vol] 0.06 10*3/uL Normal 0.00-0.20 [facility] Comment on above: Performed By: #### L [id number] #### [facility] ([facility]) [address] [place] [address] Immature granulocytes/100 WBC (Bld) 0.7 % Normal 0.0-1.0 [facility] Comment on above: Performed By: #### L [id number] #### [facility] ([facility]) [address] [place] [address] Lymphocytes (Bld) [#/Vol] 1.53 10*3/uL Normal 1.20-4.00 [facility] Comment on above: Performed By: #### L [id number] #### [facility] ([facility]) [address] [place] [address] Lymphocytes/100 WBC (Bld) 17.7 % Low 20.0-45.0 [facility] Comment on above: Performed By: #### L [id number] #### [facility] ([facility] [address] [place] [address] MCH (RBC) [Entitic mass] 33.3 pg High 27.0-33.0 [facility] Comment on above: Performed By: #### L [id number] #### [facility] ([facility]) [address] [place] [address] MCV (RBC) [Entitic vol] 102.1 fL High 82.0-98.0 [facility] Comment on above: Performed By: #### L [id number] #### [facility] ([facility]) [address] [place] [address] Monocytes (Bld) [#/Vol] 0.78 10*3/uL Normal 0.10-1.00 [facility] Comment on above: Performed By: #### L [id number] #### [facility] ([facility]) [address] [place] [address] Monocytes/100 WBC (Bld) 9.0 % Normal 5.0-12.0 [facility] Comment on above: Performed By: #### L [id number] #### [facility] ([facility]) [address] [place] [address] Neutrophils (Bld) [#/Vol] 5.62 10*3/uL Normal 1.60-7.60 [facility] Comment on above: Performed By: #### L [id number] #### [facility] ([facility]) [address] [place] [address] Neutrophils/100 WBC (Bld) 65.2 % Normal 40.0-72.0 [facility] Comment on above: Performed By: #### L [id number] #### [facility] ([facility]) [address] [place] [address] NRBC (PER 100 WBCS) BY AUTOMATED COUNT 0.0 % Normal 0 [facility] Comment on above: Performed By: #### L [id number] #### [facility] ([facility]) [address] [place] [address] PLATELETS (10*3/UL) IN BLOOD AUTOMATED COUNT 187 10*3/uL Normal 150-400 [facility] Comment on above: Performed By: #### L [id number] #### [facility] ([facility]) [address] [place] [address] RBC (Bld) [#/Vol] 3.90 10*6/uL Low 4.20-5.70 [facility] Comment on above: Performed By: #### L [id number] #### [facility] ([facility]) [address] [place] [address] WBC (Bld) [#/Vol] 8.63 10*3/uL Normal 4.00-10.60 [facility] Comment on above: Performed By: #### L [id number] #### [facility] (BEAKER) [address] [place] [address] CONSULTon 01-11-2025 CONSULT -- Attestation signed by Darrell Sinclair MD at 01/11/2025 5:04 PM By using the attestations below, the signing clinician agrees that I have read and verify that the documentation has been personally reviewed by me and ensure that the documentation accurately reflects the encounter. GC: I personally saw this patient on the day of the encounter, performed the mathis portion(s) of the service and participated in the management and confirm the resident's documentation. Please note there may be an additional personal documentation from me. My additional comments are as follows: 69-year-old gentleman with prior history of reported coronary artery disease as he had prior angiogram in 2008 which had shown at least mild coronary artery disease at [facility]. Considering his current presentation we will obtain an echocardiogram. He already underwent cardiac angiogram on 01/11 which showed moderate but heavily calcified triple-vessel disease. He will also need aggressive medical therapy with aspirin, statin and likely colchicine as well in light of the recently published COL C OT trial. Darrell Sinclair MD, ScM, MSc Cardiac Senior [employer] Turb[employer] Technician Email: [email or web address] Cardiology Consult Note Reason for Consult: unstable angina HPI: Nazario Cortes is a 69 y.o. male with a past medical history significant for reported coronary artery disease (last cath showed 20-30% stenosis in 2008 at [facility]), hyperlipidemia, depression, and seizures. 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 On surgery, tumor was not found in/near heart. Above mentioned history was reported by patient. No information available in chart. Patient presents with chest pressure that began two days ago while sitting in a chair. He describes the pain as an achy pressure, similar to ???someone sitting on his chest,??? located across the chest and radiating to the left shoulder. The pain was associated with shortness of breath and nausea. He attempted nitroglycerin at home, which did not provide relief. Emergency Medical Services (EMS) administered aspirin 325 mg, nitroglycerin (spray and tablet), which resolved his shortness of breath and improved his chest pain. He was initially brought to [facility] and subsequently transferred to [facility] for cardiac catheterization. At present, the patient reports mild chest pain but denies shortness of breath, nausea, vomiting, dizziness, or palpitations. He reports a smoking history but quit in 1996. Blood pressure 142/84, heart rate 70s, EKG sinus rhythm with 1st degree AV block WI interval 210. Cardiology ROS: Negative except as mentioned. Past Medical History He has a past medical history of Bladder cancer (CMS/HCC), Cholelithiasis, Colon polyp, Depression, Dyslipidemia, Hearing loss, Left foot drop, Peripheral neuropathy, Seizure disorder (CMS/HCC), and TIA (transient ischemic attack). Surgical History He has a past surgical history that includes CTA Neck W IV Contrast (11/20/2020); CTA Head W IV Contrast (11/20/2020); Cholecystectomy; Chest wall biopsy; Shoulder surgery; Lymph node dissection; Foot surgery; Cataract extraction, bilateral; Anterior cervical discectomy w/ fusion; Posterior cervical laminectomy; Colonoscopy; Cardiac catheterization; and Carpal tunnel release (Bilateral). Social History He reports that he quit smoking about 27 years ago. His smoking use included cigarettes. He has never used smokeless tobacco. He reports that he does not currently use alcohol. He reports that he does not use drugs. Family History Family History Problem Relation Name Age of Onset Supraventricular tachycardia Mother Stroke Father Kidney cancer Sister Diabetes Sister COPD Brother Allergies Oxycodone and Gabapentin Medications Current Outpatient Medications Medication Instructions aspirin 81 mg EC tablet 1 tablet, oral, Every morning atorvastatin (LIPITOR) 10 mg, oral, Nightly citalopram (CeleXA) 40 mg tablet No dose, route, or frequency recorded. furosemide (LASIX) 40 mg, oral, Daily PRN HYDROcodone-acetaminop hen ([place]) 5-325 mg tablet take 1 tablet by mouth four times a day if needed for severe pain for up to 7 days meclizine (Antivert) 25 mg tablet take 1 tablet by mouth four times a day if needed for dizziness methocarbamol (Robaxin) 750 mg tablet take 1 tablet by mouth four times a day if needed for muscle spasm dvhdasipzhzt-kqaz-boht rals-folic acid (Multivitamin 50 Plus) tablet Every 24 hours nitroglycerin (NITROSTAT) 0.3 mg, sublingual PHENobarbital (LUMINAL) 64.8 mg, oral, 3 times daily RT phenytoin ER (Dilantin) 100 mg capsule take 2 capsules by mouth three times a day potassium chloride CR (K-Tab) 20 mEq ER table (more content not included)... [facility] HPon 01-11-2025 HP -- Attestation signed by Arnaud Lyons MD at 01/11/2025 1:07 PM By using the attestations below, the signing clinician agrees that I have read and verify that the documentation has been personally reviewed by me and ensure that the documentation accurately reflects the encounter. GC: I personally saw this patient on the day of the encounter, performed the mathis portion(s) of the service and participated in the management and confirm the resident's documentation. Please note there may be an additional personal documentation from me. Additional Comments: Arnaud Lyons MD, MPH, FACC, [facility] [place], [facility] Interventional Cardiology Pager Email: [email or web address] H&P reviewed. The patient was examined and there are no changes to the H&P. Will proceed with coronary angiogram for further assessment. Procedure's details, risks and benefits discussed with the patient and he's agreeable. Normal [facility] PLATELET COUNTon 01-11-2025 PLATELETS (10*3/UL) IN BLOOD AUTOMATED COUNT 177 10*3/uL Normal 150-400 [facility] Comment on above: Performed By: #### L [id number] #### [facility] [address] [place] [address] TROPONIN Ion 01-11-2025 Troponin I.cardiac [Mass/Vol] 0.01 ng/mL Normal 0.00-0.04 [facility] Comment on above: Performed By: #### L [id number] #### [facility] [address] [place] [address] Troponin I.cardiac [Mass/Vol] 0.01 ng/mL Normal 0.00-0.04 [facility] Comment on above: Performed By: #### L [id number] #### [facility] [address] [place] [address] Troponin I.cardiac [Mass/Vol] 0.01 ng/mL Normal 0.00-0.04 [facility] Comment on above: Performed By: #### L [id number] #### [facility] [address] [place] [address] No Panel InformationOrdered By: Fay Adhikari on 11-27-2024 [facility] Radiology Study observation (narrative) [facility] XR knee RT 4V*on 10-17-2024 XR knee RT 4V* [address] [place] [address] XRay Report Signed Patient: Nazario Cortes Jr MR#: [id number] : 1955 Acct:[id number] Age/Sex: 69 / M ADM Date: 10/17/24 Loc: XDUC Room: Type: REG CLI Attending Dr: Yancy Lawson TABLEAU REPORT DEVELOPER Copies to: Yancy Lawson APRN Ordering Provider: [...] Hoa Lockwood M.D.10/17/2024 2:40 PM Dictation Location: [place] [address] Transcribed By: [facility] 10/17/24 1440 Dictated By: Hoa Lockwood MD 10/17/24 1438 Signed By: 10/17/24 1440 Normal [facility] XR knee RT 4V*on 09-07-2024 XR knee RT 4V* [address] [address] XRay Report Signed Patient: Nazario Cortes Jr MR#: [id number] : 1955 Acct:[id number] Age/Sex: 69 / M ADM Date: 09/07/24 Loc: XDUCLY Room: Type: REG CLI Attending Dr: Joslyn Garcia TABLEAU REPORT DEVELOPER Copies to: Joslyn Garcia APRN Ordering Provider: [...] PROCESS. Impression dictated by: Bar Ching Jr., D.O.09/07/2024 4:15 PM Dictation Location: [facility]--15 Transcribed By: [facility] 09/07/241614 Dictated By: Bar Ching Jr DO 09/07/241613 Signed By: 09/07/241614 Normal [facility] Influenza virus A and B and SARS-CoV-2 (COVID-19) RNA panel - Respiratory system specon 08-16-2024 Influenza virus A and B RNA and SARS-CoV-2 (COVID-19) N gene panel ALEX+probe (Resp) Negative [facility] - Microbiology an d Antimicrobial susceptibilityon 08-16-2024 SARS-CoV-2 (COVID-19) RNA ALEX+probe Ql (Unsp spec) Negative [facility] No Panel Informationon 08-16 POC Influenza B (ALEX) Negative [facility] Follow-Upon 08-08-2024 Follow-Up [id number] Nazario Cortes 1955 M Date Provider Department Center 08/08/2024 [facility] Second Fl Family History Problem Relation Age of Onset Supraventricular tachycardia Mother Stroke Father Kidney cancer Sister Diabetes Sister COPD Brother Family Status - Relation Status Age at Mother Father Sister Brother Level of Service:[address] [place] OFFICE/OUTPATIENT ESTABLISHED MOD MDM 30 MIN Reason for Visit and Comments: Follow-up [262615] - Pt is here for a follow up visit for Lumbar Stenosis. Normal [facility] 36on 07-30-2024 36 Talked to patient. [...] given his ongoing issues. Verbalizes understanding. Normal [facility] Telephoneon 07-30-2024 Telephone [id number] Nazario Cortes 1955 M Date Provider Department Center 07/30/2024 [facility]NELIO NEGRON [facility] Second Fl Family History Problem Relation Age of Onset Supraventricular tachycardia Mother Stroke Father Kidney cancer Sister Diabetes Sister COPD Brother Family Status - Relation Status Age at Mother Father Sister Brother Normal [facility] MR CERVICAL SPINE W AND WO [...] BOWMAN MD. Not Vldtd Invalid Interpretation Code [facility] XR elbow LT min 3V*on 2023 XR elbow LT min 3V* [facility] Main [place] [address] [place] [address] XRay Report Signed Patient: Nazario Cortes Jr MR#: [id number] : 1955 Acct:[id number] Age/Sex: 69 / M ADM Date: 05/15/24 Loc: XDUCLY Room: Type: [facility] Attending Dr: Joslyn Garcia APRN Copies [...] Zain Fitzpatrick M.D.05/15/2024 4:23 PM Dictation Location: [place] [address] Transcribed By: [facility] 05/15/24 1623 Dictated By: Zain Fitzpatrick DO 05/15/24 1621 Signed By: 05/15/24 1623 Normal [facility] Orders Onlyon 04-11-2024 Orders Only [id number] Nazario Cortes 1955 M Date Provider Department Center 04/11/2024 [id number], HISTORICAL NAG[facility] Family History Problem Relation Age of Onset Supraventricular tachycardia Mother Stroke Father Kidney cancer Sister Diabetes Sister COPD Brother Family Status - Relation Status Age at Mother Father Sister Brother Normal [facility] US CAROTID ART BILon 023 US [...] by: KELL BLANDON Date: 2023-01-11 08:42 Normal [facility] ECHOCARDIO M/2D COMPLETEon 0 01-07-2023 ECHOCARDIO M/2D COMPLETE Patient: NAZARIO CORTES Exam Date: 01/07/2023 : 1955 Gender:M Ordering : DR JIGNESH GONSALEZ . Admission #: [id number] Family : Order #: [id number] CLICK HERE TO VIEW EXAM ECHOCARDIOGRAM REPORT [...] Pressure: 46.21 ml, 46.21 ml Dictated by: Cole Smith M.D. on 01/11/2023 at 18:20 Approved by: Cole Smith M.D. on 01/11/2023 at 18:23 Normal [facility] XR ELBOW LT MIN 3 VIEWSon [...] VIDAL FRASER Date: 2022-12-24 20:23 Normal [facility] XR HIP LT 2 3V W [...] VIDAL FRASER Date: 2022-12-24 20:21 Normal [facility] XR HUMERUS LT MIN 2Von 12-24 [...] KELL DELANEY Date: 2022-12-24 21:03 Normal [facility] CBC AUTO DIFFon 11-04-2022 BASO # 0.1 103/ul Normal 0.0-0.1 [facility] Comment on above: Performed By: #### B MP, CMREP, LIPID #### [facility] [address] [place] [address] [address] Jeimy Tenorio Basophils/100 WBC (Bld) 0.9 % Normal 0.2-2.0 [facility] Comment on above: Performed By: #### B MP, CMREP, LIPID #### [facility] [address] [place] [address] [address] Jeimy Tenorio EO # 0.3 103/ul Normal 0.0-0.7 [facility] Comment on above: Performed By: #### B MP, CMREP, LIPID #### [facility] [address] [place] [address] [address] Jeimy Tenorio Eosinophils/100 WBC (Bld) 5.2 % Normal 0.9-7.0 [facility] Comment on above: Performed By: #### B MP, CMREP, LIPID #### [facility] [address] [place] [address] [address] Jeimy Tenorio Erythrocyte distribution width (RBC) [Ratio] 12.9 % Normal 11.0-15.0 [facility] Comment on above: Performed By: #### B MP, CMREP, LIPID #### [facility] [address] [place] [address] Dr. Jeimy Tenorio Hematocrit (Bld) [Volume fraction] 39.5 % Critically low 42.0-54.0 [facility] Comment on above: Performed By: #### B MP, CMREP, LIPID #### [facility] [address] [place] [address] Dr. Jeimy Tenorio Hemoglobin (Bld) [Mass/Vol] 13.1 g/dL Critically low 14.0-18.0 [facility] Comment on above: Performed By: #### B MP, CMREP, LIPID #### [facility] [address] [place] [address] Dr. Jeimy Tenorio IG # 0.03 10e3/ul Normal 0.00-0.03 [facility] Comment on above: Performed By: #### B MP, CMREP, LIPID #### [facility] [address] [place] [address] Dr. Jeimy Tenorio IG % 0.5 % Normal 0.0-0.5 [facility] Comment on above: Performed By: #### B MP, CMREP, LIPID #### [facility] [address] [place] [address] Dr. Jeimy Tenorio LYMPH # 1.5 103/ul Normal 1.2-3.8 [facility] Comment on above: Performed By: #### B MP, CMREP, LIPID #### [facility] [address] [place] [address] Dr. Jeimy Tenorio Lymphocytes/100 WBC (Bld) 22.6 % Normal 20.5-60.0 [facility] Comment on above: Performed By: #### B MP, CMREP, LIPID #### [facility] [address] [place] [address] Dr. Jeimy Tenorio MANUAL DIFF REQ NO Normal [facility] Comment on above: Performed By: #### B MP, CMREP, LIPID #### [facility] [address] [place] [address] Dr. Jeimy Tenorio MCH (RBC) [Entitic mass] 32.8 pg Normal 25.9-34.0 [facility] Comment on above: Performed By: #### B MP, CMREP, LIPID #### [facility] [address] [place] [address] Dr. Jeimy Tenorio MCHC (RBC) [Mass/Vol] 33.2 g/dL Normal 29.9-35.2 [facility] Comment on above: Performed By: #### B MP, CMREP, LIPID #### [facility] [address] [place] [address] Dr. Jeimy Tenorio MCV (RBC) [Entitic vol] 99.0 fL Critically high 80.0-94.0 [facility] Comment on above: Performed By: #### B MP, CMREP, LIPID #### [facility] [address] [place] [address] Dr. Jeimy Tenorio MONO # 0.7 103/ul Normal 0.3-0.8 [facility] Comment on above: Performed By: #### B MP, CMREP, LIPID #### [facility] [address] [place] [address] Dr. Jeimy Tenorio Monocytes/100 WBC (Bld) 10.6 % Normal 1.7-12.0 [facility] Comment on above: Performed By: #### B MP, CMREP, LIPID #### [facility] [address] [place] [address] Dr. Jeimy Tenorio NEUT # 4.0 103/ul Normal 1.4-6.5 [facility] Comment on above: Performed By: #### B MP, CMREP, LIPID #### [facility] [address] [place] [address] Dr. Jeimy Tenorio Neutrophils/100 WBC (Bld) 60.2 % Normal 43.0-75.0 [facility] Comment on above: Performed By: #### B MP, CMREP, LIPID #### [facility] [address] [place] [address] Dr. Jeimy Tenorio Platelet mean volume (Bld) [Entitic vol] 9.7 fL Normal 9.5-13.5 [facility] Comment on above: Performed By: #### B MP, CMREP, LIPID #### [facility] [address] [place], [place] [address] Dr. Jeimy Tenorio PLT 176 103/ul Normal 150-450 [facility] Comment on above: Performed By: #### B MP, CMREP, LIPID #### [facility] [address] [place], [place] [address] Dr. Jeimy Tenorio RBC 3.99 106/ul Critically low 4.70-6.10 [facility] Comment on above: Performed By: #### B MP, CMREP, LIPID #### [facility] [address] [place], [place] [address] Dr. Jeimy Tenorio WBC 6.6 103/ul Normal 4.0-11.0 [facility] Comment on above: Performed By: #### B MP, CMREP, LIPID #### [facility] [address] [place], [place] [address] HEAD WO CONon [...] ALEJANDRO PINEDA Date: 2022-11-04 14:08 Normal [facility] Covid-19 PCR (CVDTBH)on 10-21 SARS-CoV-2 (COVID-19) RNA ALEX+probe Ql (Unsp spec) Not detected Normal NOT DETECTED [facility] Comment on above: Result Comment: This test is not yet approved or cleared by the [place] FDA. When there are no FDA-approved or cleared tests available, and other criteria are met, FDA can make tests available under an emergency access mechanism called an Emergency Use Authorization (EUA). The EUA for this test is supported by the [place] of Health and Human Service's (HHS's) declaration [...] By: #### B MP, CMREP, LIPID #### [facility] [address] [place] [address] Dr. Jeimy Tenorio INFLUENZA A AND B AGon 11-04 [facility] BELOW Normal [facility] Comment on above: Result Comment: Nega tive for Flu A protein angiten. Infection due to Flu A cannot be ruled out. Flu A angiten in the sample may be below the detection limit of the test. Performed By: #### I NFLUAB #### [facility] [address] [place] [address] [address] Jeimy Tenorio [facility] SEE BELOW Normal [facility] Comment on above: Result Comment: Nega tive for Flu B protein antigen. Infection due to Flu B cannot be ruled out. Flu B antigen in the sample may be below the detection limit of the test. Performed By: #### I NFLUAB #### [facility] [address] [place] [address] Dr. Jeimy Tenorio INFLUENZA A AG Negative Normal NEGATIVE SEE COMMENT [facility] Comment on above: Performed By: #### I NFLUAB #### [facility] [address] [place] [address] Dr. Jeimy Tenorio INFLUENZA B AG Negative Normal NEGATIVE SEE COMMENT [facility] Comment on above: Performed By: #### I NFLUAB #### [facility] [address] [place] [address] Dr. Jeimy Tenorio INTERNAL CONTROLS Within Normal Limits Normal Wi thin Normal Limits [facility] Comment on above: Performed By: #### I NFLUAB #### [facility] [address] [place] [address] Dr. Jeimy Tenorio PROF CHEM 8 (BAS METB)on Anion gap [Moles/Vol] 9.7 mmol/L Normal [facility] Comment on above: Performed By: #### C BC #### [facility] [address] [place] [address] Dr. Jeimy Tenorio Calcium [Mass/Vol] 8.0 mg/dL Critically low 8.5-10.1 [facility] Comment on above: Performed By: #### C BC #### [facility] [address] [place] [address] Dr. Jeimy Tenorio Chloride [Moles/Vol] 104 mmol/L Normal 98-107 [facility] Comment on above: Performed By: #### C BC #### [facility] [address] [place] [address] Dr. Jeimy Tenorio CO2 [Moles/Vol] 31.1 mmol/L Normal 21.0-32.0 [facility] Comment on above: Performed By: #### C BC #### [facility] [address] [place] [address] Dr. Jeimy Tenorio Creatinine [Mass/Vol] 0.75 mg/dL Normal 0.70-1.30 [facility] Comment on above: Performed By: #### C BC #### [facility] [address] [place] [address] Dr. Jeimy Tenorio EGFR-AF MALDIVIAN >60 Normal >=60 [facility] Comment on above: Performed By: #### C BC #### [facility] [address] [place] [address] [address] Jeimy Tenorio EGFR-NON AF MALDIVIAN >60 Normal >=60 [facility] Comment on above: Performed By: #### C BC #### [facility] [address] [place] [address] [address] Jeimy Tenorio Glucose [Mass/Vol] 76 mg/dL Normal 74-106 [facility] Comment on above: Performed By: #### C BC #### [facility] [address] [place] [address] [address] Jeimy Tenorio Potassium [Moles/Vol] 3.8 mmol/L Normal 3.5-5.1 [facility] Comment on above: Performed By: #### C BC #### [facility] [address] [place] [address] Dr. Jeimy Tenorio Sodium [Moles/Vol] 141 mmol/L Normal 136-145 [facility] Comment on above: Performed By: #### C BC #### [facility] [address] [place] [address] [address] Jeimy Tenorio Urea nitrogen [Mass/Vol] 12.0 mg/dL Normal 7.0-18.0 [facility] Comment on above: Performed By: #### C BC #### [facility] [address] [place] [address] [address] Jeimy Tenorio Urea nitrogen/Creatinine [Mass ratio] 16.0 mg/mg Normal [facility] Comment on above: Performed By: #### C BC #### [facility] [address] [place] [address] [address] Jeimy Tenorio TROPONIN, HIGH SENSITIVITYon 11-04-2022 HSTROP 5.8 pg/mL Normal 4.0-76.1 [facility] Comment on above: Result Comment: CUT- OFF POINTS HAVE BEEN ESTABLISHED BASED ON THE FOURTH UNIVERSAL DEFINITIONS OF MYOCARDIAL INFARCTION. THE UPPER REFERENCE LIMIT (URL) OF TROPONIN, DEFINED THE 99TH PERCENTILE OF cTnI DISTRIBUTION IN A REFERENCE POPULATION, HAS BEEN CONFIRMED THE DECISION THRESHOLD FOR [place] DIAGNOSIS. Performed By: #### C BC #### [facility] [address] [place] [address] Dr. Jeimy Tenorio CBC AUTO DIFFon 09-29-2022 BASO # 0.1 103/ul Normal 0.0-0.1 [facility] Comment on above: Performed By: #### B MP, CMREP, LIPID #### [facility] [address] [place] [address] Dr. Jeimy Tenorio Basophils/100 WBC (Bld) 1.2 % Normal 0.2-2.0 [facility] Comment on above: Performed By: #### B MP, CMREP, LIPID #### [facility] [address] [place] [address] Dr. Jeimy Tenorio EO # 0.3 103/ul Normal 0.0-0.7 [facility] Comment on above: Performed By: #### B MP, CMREP, LIPID #### [facility] [address] [place] [address] Dr. Jeimy Tenorio Eosinophils/100 WBC (Bld) 4.9 % Normal 0.9-7.0 [facility] Comment on above: Performed By: #### B MP, CMREP, LIPID #### [facility] [address] [place] [address] Dr. Jeimy Tenorio Erythrocyte distribution width (RBC) [Ratio] 13.2 % Normal 11.0-15.0 [facility] Comment on above: Performed By: #### B MP, CMREP, LIPID #### [facility] [address] [place] [address] Dr. Jeimy Tenorio Hematocrit (Bld) [Volume fraction] 42.3 % Normal 42.0-54.0 [facility] Comment on above: Performed By: #### B MP, CMREP, LIPID #### [facility] [address] [place] [address] Dr. Jeimy Tenorio Hemoglobin (Bld) [Mass/Vol] 13.8 g/dL Critically low 14.0-18.0 [facility] Comment on above: Performed By: #### B MP, CMREP, LIPID #### [facility] [address] [place] [address] Dr. Jeimy Tenorio IG # 0.02 10e3/ul Normal 0.00-0.03 [facility] Comment on above: Performed By: #### B MP, CMREP, LIPID #### [facility] [address] [place] [address] Dr. Jeimy Tenorio IG % 0.3 % Normal 0.0-0.5 [facility] Comment on above: Performed By: #### B MP, CMREP, LIPID #### [facility] [address] [place] [address] Dr. Jeimy Tenorio LYMPH # 1.3 103/ul Normal 1.2-3.8 [facility] Comment on above: Performed By: #### B MP, CMREP, LIPID #### [facility] [address] [place] [address] Dr. Jeimy Tenorio Lymphocytes/100 WBC (Bld) 19.5 % Critically low 20.5-60.0 [facility] Comment on above: Performed By: #### B MP, CMREP, LIPID #### [facility] [address] [place] [address] Dr. Jeimy Tenorio MANUAL DIFF REQ NO Normal [facility] Comment on above: Performed By: #### B MP, CMREP, LIPID #### [facility] [address] [place] [address] Dr. Jeimy Tenorio MCH (RBC) [Entitic mass] 32.9 pg Normal 25.9-34.0 [facility] Comment on above: Performed By: #### B MP, CMREP, LIPID #### [facility] [address] [place] [address] Dr. Jeimy Tenorio MCHC (RBC) [Mass/Vol] 32.6 g/dL Normal 29.9-35.2 [facility] Comment on above: Performed By: #### B MP, CMREP, LIPID #### [facility] [address] [place] [address] Dr. Jeimy Tenorio MCV (RBC) [Entitic vol] 100.7 fL Critically high 80.0-94.0 [facility] Comment on above: Performed By: #### B MP, CMREP, LIPID #### [facility] [address] [place] [address] [address] Jeimy Tenorio MONO # 0.7 103/ul Normal 0.3-0.8 [facility] Comment on above: Performed By: #### B MP, CMREP, LIPID #### [facility] [address] [place] [address] [address] Jeimy Tenorio Monocytes/100 WBC (Bld) 9.9 % Normal 1.7-12.0 [facility] Comment on above: Performed By: #### B MP, CMREP, LIPID #### [facility] [address] [place] [address] [address] Jeimy Tenorio NEUT # 4.3 103/ul Normal 1.4-6.5 [facility] Comment on above: Performed By: #### B MP, CMREP, LIPID #### [facility] [address] [place] [address] Dr. Jeimy Tenorio Neutrophils/100 WBC (Bld) 64.2 % Normal 43.0-75.0 [facility] Comment on above: Performed By: #### B MP, CMREP, LIPID #### [facility] [address] [place] [address] [address] Jeimy Tenorio Platelet mean volume (Bld) [Entitic vol] 10.4 fL Normal 9.5-13.5 [facility] Comment on above: Performed By: #### B MP, CMREP, LIPID #### [facility] [address] [place] [address] Dr. Jeimy Tenorio PLT 209 103/ul Normal 150-450 [facility] Comment on above: Performed By: #### B MP, CMREP, LIPID #### [facility] [address] [place] [address] [address] Jeimy Tenorio RBC 4.20 106/ul Critically low 4.70-6.10 [facility] Comment on above: Performed By: #### B MP, CMREP, LIPID #### [facility] [address] [place] [address] [address] Jeimy Tenorio WBC 6.7 103/ul Normal 4.0-11.0 [facility] Comment on above: Performed By: #### B MP, CMREP, LIPID #### [facility] [address] [place] [address] Dr. Jeimy Tenorio DILANTINon 09-29-2022 Phenytoin [Mass/Vol] 23.7 ug/mL Critically high 10.0-20.0 [facility] Comment on above: Performed By: #### C BC #### [facility] [address] [place] [address] Dr. Jeimy Tenorio GLYCOHEMOGLOBIN A1Con 2021 ADA RECOMMENDATION SEE BELOW Normal [facility] Comment on above: Result Comment: ADA RECOMMENDED LIMIT 4.0 - 6.0 [facility] THERAPEUTIC TARGET < 7.0 ACTION SUGGESTED > 7.0 Performed By: #### A 1C #### [facility] [address] [place] [address] Dr. Jeimy Tenorio Glucose [Mass/Vol] 105 mg/dL Normal [facility] Comment on above: Performed By: #### A 1C #### [facility] [address] [place] [address] Dr. Jeimy Tenorio HbA1c (Bld) [Mass fraction] 5.3 % Normal 4.5-6.2 [facility] Comment on above: Performed By: #### A 1C #### [facility] [address] [place] [address] Dr. Jeimy Tenorio LIPID PROFILEon 09-29-2022 CHOL-HDL RATIO NORM SEE BELOW Normal [facility] Comment on above: Result Comment: 3.3 - 4.4 LOW RISK 4.4 - 7.1 AVERAGE RISK 7.1 - 11.0 MODERATE RISK >11.0 HIGH RISK Performed By: #### B MP, CMREP, LIPID #### [facility] [address] [place] [address] Dr. Jeimy Tenorio Cholesterol [Mass/Vol] 178 mg/dL Normal <=200 [facility] Comment on above: Performed By: #### B MP, CMREP, LIPID #### [facility] [address] [place] [address] Dr. Jeimy Tenorio Cholesterol in HDL [Mass/Vol] 56 mg/dL Normal 40-60 [facility] Comment on above: Performed By: #### B MP, CMREP, LIPID #### [facility] [address] [address] [address] Jeimy Tenorio Cholesterol in LDL [Mass/Vol] 86.8 mg/dL Normal [facility] Comment on above: Performed By: #### B MP, CMREP, LIPID #### [facility] [address] [address] [address] Jeimy Tenorio Cholesterol.total/Cho lesterol in HDL [Mass ratio] 3.2 {ratio} Normal [facility] Comment on above: Performed By: #### B MP, CMREP, LIPID #### [facility] [address] [address] [address] Jeimy Tenorio HDL NORMAL > or = 60 mg/dl - LO W CARDIOVASCULAR RISK <40 mg/dl - HIGH CARDIOVASCULAR RISK Normal [facility] Comment on above: Performed By: #### B MP, CMREP, LIPID #### [facility] [address] [place] [address] Dr. Jeimy Tenorio LDL CALC NORMAL SEE BELOW Normal [facility] Comment on above: Result Comment: <100 mg/dl OPTIMAL 100 - 129 mg/dl NEAR OR ABOVE OPTIMAL 130 - 159 mg/dl BORDERLINE HIGH 160 - 189 mg/dl HIGH >190 mg/dl VERY HIGH Performed By: #### B MP, CMREP, LIPID #### [facility] [address] [address] [address] Jeimy Tenorio Triglyceride [Mass/Vol] 176 mg/dL Critically high <=150 [facility] Comment on above: Performed By: #### B MP, CMREP, LIPID #### [facility] [address] [address] [address] Jeimy Tenorio VLDL CALC 35.2 mg/dL Normal [facility] Comment on above: Performed By: #### B MP, CMREP, LIPID #### [facility] [address] [place] [address] Dr. Jeimy Tenorio LIVER PROFILEon 09-29-2022 Albumin [Mass/Vol] 3.5 g/dL Normal 3.4-5.0 [facility] Comment on above: Performed By: #### B MP, CMREP, LIPID #### [facility] [address] [place] [address] Dr. Jeimy Tenorio Albumin/Globulin [Mass ratio] 0.8 {ratio} Normal [facility] Comment on above: Performed By: #### B MP, CMREP, LIPID #### [facility] [address] [place] [address] Dr. Jeimy Tenorio ALP [Catalytic activity/Vol] 139 U/L Critically high 46-116 [facility] Comment on above: Performed By: #### B MP, CMREP, LIPID #### [facility] [address] [place] [address] Dr. Jeimy Tenorio ALT [Catalytic activity/Vol] 25 U/L Normal 16-63 [facility] Comment on above: Performed By: #### B MP, CMREP, LIPID #### [facility] [address] [place] [address] Dr. Jeimy Tenorio AST [Catalytic activity/Vol] 23 U/L Normal 15-37 [facility] Comment on above: Performed By: #### B MP, CMREP, LIPID #### [facility] [address] [place] [address] Dr. Jeimy Tenorio BILI, CONJUGATED 0.0 mg/dL Normal 0.0-0.2 [facility] Comment on above: Performed By: #### B MP, CMREP, LIPID #### [facility] [address] [place] [address] Dr. Jeimy Tenorio Bilirubin [Mass/Vol] 0.3 mg/dL Normal 0.2-1.0 [facility] Comment on above: Performed By: #### B MP, CMREP, LIPID #### [facility] [address] [place] [address] Dr. Jeimy Tenorio Globulin (S) [Mass/Vol] 4.3 g/dL Normal [facility] Comment on above: Performed By: #### B MP, CMREP, LIPID #### [facility] [address] [place] [address] Dr. Jeimy Tenorio Protein [Mass/Vol] 7.8 g/dL Normal 6.4-8.2 [facility] Comment on above: Performed By: #### B MP, CMREP, LIPID #### [facility] [address] [place] [address] Dr. Jeimy Tenorio PROF CHEM 8 (BAS METB)on Anion gap [Moles/Vol] 8.7 mmol/L Normal [facility] Comment on above: Performed By: #### B MP, CMREP, LIPID #### [facility] [address] [address] [address] Jeimy Tenorio Calcium [Mass/Vol] 8.7 mg/dL Normal 8.5-10.1 [facility] Comment on above: Performed By: #### B MP, CMREP, LIPID #### [facility] [address] [place] [address] Dr. Jeimy Tenorio Chloride [Moles/Vol] 104 mmol/L Normal 98-107 [facility] Comment on above: Performed By: #### B MP, CMREP, LIPID #### [facility] [address] [place] [address] Dr. Jeimy Tenorio CO2 [Moles/Vol] 29.8 mmol/L Normal 21.0-32.0 [facility] Comment on above: Performed By: #### B MP, CMREP, LIPID #### [facility] [address] [place] [address] Dr. Jeimy Tenorio Creatinine [Mass/Vol] 0.76 mg/dL Normal 0.70-1.30 [facility] Comment on above: Performed By: #### B MP, CMREP, LIPID #### [facility] [address] [address] [address] Jeimy Tenorio EGFR-AF MALDIVIAN >60 Normal >=60 [facility] Comment on above: Performed By: #### B MP, CMREP, LIPID #### [facility] [address] [place] [address] Dr. Jeimy Tenorio EGFR-NON AF MALDIVIAN >60 Normal >=60 [facility] Comment on above: Performed By: #### B MP, CMREP, LIPID #### [facility] [address] [place] [address] Dr. Jeimy Tenorio Glucose [Mass/Vol] 95 mg/dL Normal 74-106 [facility] Comment on above: Performed By: #### B MP, CMREP, LIPID #### [facility] [address] [place] [address] Dr. Jeimy Tenorio Potassium [Moles/Vol] 4.5 mmol/L Normal 3.5-5.1 [facility] Comment on above: Performed By: #### B MP, CMREP, LIPID #### [facility] [address] [place] [address] Dr. Jeimy Tenorio Sodium [Moles/Vol] 138 mmol/L Normal 136-145 [facility] Comment on above: Performed By: #### B MP, CMREP, LIPID #### [facility] [address] [place] [address] Dr. Jeimy Tenorio Urea nitrogen [Mass/Vol] 18.0 mg/dL Normal 7.0-18.0 [facility] Comment on above: Performed By: #### B MP, CMREP, LIPID #### [facility] [address] [place] [address] Dr. Jeimy Tenorio Urea nitrogen/Creatinine [Mass ratio] 23.7 mg/mg Normal [facility] Comment on above: Performed By: #### B MP, CMREP, LIPID #### [facility] [address] [place] [address] Dr. Jeimy Tenorio TSHon 09-29-2022 TSH 1.694 uIU/mL Normal 0.358-3.740 [facility] Comment on above: Performed By: #### B MP, CMREP, LIPID #### [facility] [address] [place] [address] Dr. Jeimy Tenorio CARDIAC SAWYER 3-6on 2 CK [Catalytic activity/Vol] 47 U/L Normal 39-308 [facility] Comment on above: Performed By: #### B MP, CMREP, LIPID #### [facility] [address] [address] [address] Jeimy Tenorio CK.MB [Mass/Vol] 0.77 ng/mL Normal <=3.60 [facility] Comment on above: Performed By: #### B MP, CMREP, LIPID #### [facility] [address] [place] [address] Dr. Jeimy Tenorio HSTROP 6.9 pg/mL Normal 4.0-76.1 [facility] Comment on above: Result Comment: CUT- OFF POINTS HAVE BEEN ESTABLISHED BASED ON THE FOURTH UNIVERSAL DEFINITIONS OF MYOCARDIAL INFARCTION. THE UPPER REFERENCE LIMIT (URL) OF TROPONIN, DEFINED THE 99TH PERCENTILE OF cTnI DISTRIBUTION IN A REFERENCE POPULATION, HAS BEEN CONFIRMED THE DECISION THRESHOLD FOR [place] DIAGNOSIS. Performed By: #### B MP, CMREP, LIPID #### [facility] [address] [place] [address] Dr. Jeimy Tenorio CK [Catalytic activity/Vol] 53 U/L Normal 39-308 [facility] Comment on above: Performed By: #### C BC #### [facility] [address] [place] [address] Dr. Jeimy Tenorio CK.MB [Mass/Vol] 0.80 ng/mL Normal <=3.60 [facility] Comment on above: Performed By: #### C BC #### [facility] [address] [place] [address] Dr. Jeimy Tenorio HSTROP 6.2 pg/mL Normal 4.0-76.1 [facility] Comment on above: Result Comment: CUT- OFF POINTS HAVE BEEN ESTABLISHED BASED ON THE FOURTH UNIVERSAL DEFINITIONS OF MYOCARDIAL INFARCTION. THE UPPER REFERENCE LIMIT (URL) OF TROPONIN, DEFINED THE 99TH PERCENTILE OF cTnI DISTRIBUTION IN A REFERENCE POPULATION, HAS BEEN CONFIRMED THE DECISION THRESHOLD FOR [place] DIAGNOSIS. Performed By: #### C BC #### [facility] [address] [place] [address] Dr. Jeimy Tenorio CBC AUTO DIFFon 06-12-2022 BASO # 0.1 103/ul Normal 0.0-0.1 [facility] Comment on above: Performed By: #### C BC #### [facility] [address] [place], [place] [id number] Dr. Jeimy Tenorio Basophils/100 WBC (Bld) 0.9 % Normal 0.2-2.0 [facility] Comment on above: Performed By: #### C BC #### [facility] [address] [place] [address] Dr. Jeimy Tenorio EO # 0.3 103/ul Normal 0.0-0.7 [facility] Comment on above: Performed By: #### C BC #### [facility] [address] [place] [address] Dr. Jeimy Tenorio Eosinophils/100 WBC (Bld) 5.2 % Normal 0.9-7.0 [facility] Comment on above: Performed By: #### C BC #### [facility] [address] [place] [address] Dr. Jeimy Tenorio Erythrocyte distribution width (RBC) [Ratio] 13.0 % Normal 11.0-15.0 [facility] Comment on above: Performed By: #### C BC #### [facility] [address] [place] [address] Dr. Jeimy Tenorio Hematocrit (Bld) [Volume fraction] 39.1 % Critically low 42.0-54.0 [facility] Comment on above: Performed By: #### C BC #### [facility] [address] [place] [address] Dr. Jeimy Tenorio Hemoglobin (Bld) [Mass/Vol] 13.2 g/dL Critically low 14.0-18.0 [facility] Comment on above: Performed By: #### C BC #### [facility] [address] [place] [address] Dr. Jeimy Tenorio IG # 0.03 10e3/ul Normal 0.00-0.03 [facility] Comment on above: Performed By: #### C BC #### [facility] [address] [place] [address] Dr. Jeimy Tenorio IG % 0.5 % Normal 0.0-0.5 [facility] Comment on above: Performed By: #### C BC #### [facility] [address] [place] [address] Dr. Jeimy Tenorio LYMPH # 1.7 103/ul Normal 1.2-3.8 [facility] Comment on above: Performed By: #### C BC #### [facility] [address] [place] [address] Dr. Jeimy Tenorio Lymphocytes/100 WBC (Bld) 26.0 % Normal 20.5-60.0 [facility] Comment on above: Performed By: #### C BC #### [facility] [address] [place] [address] Dr. Jeimy Tenorio MANUAL DIFF REQ NO Normal [facility] Comment on above: Performed By: #### C BC #### [facility] [address] [place] [address] Dr. Jeimy Tenorio MCH (RBC) [Entitic mass] 33.2 pg Normal 25.9-34.0 [facility] Comment on above: Performed By: #### C BC #### [facility] [address] [place] [address] Dr. Jeimy Tenorio MCHC (RBC) [Mass/Vol] 33.8 g/dL Normal 29.9-35.2 [facility] Comment on above: Performed By: #### C BC #### [facility] [address] [place] [address] Dr. Jeimy Tenorio MCV (RBC) [Entitic vol] 98.5 fL Critically high 80.0-94.0 [facility] Comment on above: Performed By: #### C BC #### [facility] [address] [place] [address] Dr. Jeimy Tenorio MONO # 0.8 103/ul Normal 0.3-0.8 [facility] Comment on above: Performed By: #### C BC #### [facility] [address] [place] [address] Dr. Jeimy Tenorio Monocytes/100 WBC (Bld) 12.2 % Critically high 1.7-12.0 [facility] Comment on above: Performed By: #### C BC #### [facility] [address] [place] [address] Dr. Jeimy Tenorio NEUT # 3.6 103/ul Normal 1.4-6.5 [facility] Comment on above: Performed By: #### C BC #### [facility] [address] [place] [address] Dr. Jeimy Tenorio Neutrophils/100 WBC (Bld) 55.2 % Normal 43.0-75.0 [facility] Comment on above: Performed By: #### C BC #### [facility] [address] [place] [address] Dr. Jeimy Tenorio Platelet mean volume (Bld) [Entitic vol] 9.9 fL Normal 9.5-13.5 [facility] Comment on above: Performed By: #### C BC #### [facility] [address] [place] [address] Dr. Jeimy Tenorio PLT 174 103/ul Normal 150-450 [facility] Comment on above: Performed By: #### C BC #### [facility] [address] [place] [address] Dr. Jeimy Tenorio RBC 3.97 106/ul Critically low 4.70-6.10 [facility] Comment on above: Performed By: #### C BC #### [facility] [address] [place], [place] [id number] Dr. Jeimy Tenorio WBC 6.5 103/ul Normal 4.0-11.0 [facility] Comment on above: Performed By: #### C BC #### [facility] [address] [place] [address] Dr. Jeimy Tenorio CTA CHEST WO W [...] MAMIE ALFORD Date: 2022-06-12 00:21 Normal [facility] Covid-19 PCR (CVDTBH)on 05-22 SARS-CoV-2 (COVID-19) RNA ALEX+probe Ql (Unsp spec) Not detected Normal NOT DETECTED [facility] Comment on above: Result Comment: When [...] for this test is supported by the [place] of [employer] and Human Service's declaration that [...] By: #### B MP, CMREP, LIPID #### [facility] [address] [place] [address] Dr. Yilan Tenorio ER URINE PROFILEon 2 Bilirubin Ql (U) Negative Normal NEGATIVE [facility] Comment on above: Performed By: #### E RUR #### [facility] [address] [place] [address] Dr. Jeimy Tenroio Clarity (U) CLEAR Normal CLEAR [facility] Comment on above: Performed By: #### E RUR #### [facility] [address] [place] [address] Dr. Jeimy Tenorio Color (U) LT. YELLOW Normal YELLOW [facility] Comment on above: Performed By: #### E RUR #### [facility] [address] [place] [address] Dr. Jeiym BALES A micrscopic examination will be performed if indicated. Normal [facility] Comment on above: Performed By: #### E RUR #### [facility] [address] [place] [address] Dr. Jeimy Tenorio Glucose Ql (U) Negative Normal NEGATIVE [facility] Comment on above: Performed By: #### E RUR #### [facility] [address] [place] [address] Dr. Jeimy Tenorio Hemoglobin Ql (U) Negative Normal NEGATIVE [facility] Comment on above: Performed By: #### E RUR #### [facility] [address] [place] [address] Dr. Jeimy Tenorio Ketones Ql (U) TRACE Abnormal NEGATIVE [facility] Comment on above: Performed By: #### E RUR #### [facility] [address] [place] [address] Dr. Jeimy Tenorio LEUKOCYTES Negative Normal NEGATIVE [facility] Comment on above: Performed By: #### E RUR #### [facility] [address] [place] [address] Dr. Jeimy Tenorio Nitrite Ql (U) Negative Normal NEGATIVE [facility] Comment on above: Performed By: #### E RUR #### [facility] [address] [place] [address] Dr. Jeimy Tenorio pH (U) 5.5 [pH] Normal 5-9 [facility] Comment on above: Performed By: #### E RUR #### [facility] [address] [place] [address] Dr. Jeimy Tenorio SPEC GRAVITY 1.010 Normal 1.005-<=1.02 5 [facility] Comment on above: Performed By: #### E RUR #### [facility] [address] [place] [address] Dr. Jeimy Tenorio UA PROTEIN Negative Normal NEGATIVE/ TRACE [facility] Comment on above: Performed By: #### E RUR #### [facility] [address] [place] [address] Dr. Jeimy Tenorio UR MICRO IND NOT INDICATED Normal [facility] Comment on above: Performed By: #### E RUR #### [facility] [address] [place] [address] Dr. Jeimy Tenorio Urobilinogen Qn (U) 0.2 {Raphael'U}/dL Normal 0.2 - 1. 0 [facility] Comment on above: Performed By: #### E RUR #### [facility] [address] [place] [address] Dr. Jeimy Tenorio GLYCOHEMOGLOBIN A1Con 2021 ADA RECOMMENDATION SEE BELOW Normal [facility] Comment on above: Result Comment: ADA RECOMMENDED LIMIT 4.0 - 6.0 ADA THERAPEUTIC TARGET < 7.0 ACTION SUGGESTED > 7.0 Performed By: #### C BC #### [facility] [address] [place] [address] Dr. Jeimy Tenorio Glucose [Mass/Vol] 103 mg/dL Normal [facility] Comment on above: Performed By: #### C BC #### [facility] [address] [place] [address] Dr. Jeimy Tenorio HbA1c (Bld) [Mass fraction] 5.2 % Normal 4.5-6.2 [facility] Comment on above: Performed By: #### C BC #### [facility] [address] [place] [address] Dr. Jeimy Tenorio LIPID PROFILEon 07-23-2022 CHOL-HDL RATIO NORM SEE BELOW Normal [facility] Comment on above: Result Comment: 3.3 - 4.4 LOW RISK 4.4 - 7.1 AVERAGE RISK 7.1 - 11.0 MODERATE RISK >11.0 HIGH RISK Performed By: #### B MP, CMREP, LIPID #### [facility] [address] [address] [address] Jeimy Tenorio Cholesterol [Mass/Vol] 142 mg/dL Normal <=200 [facility] Comment on above: Performed By: #### B MP, CMREP, LIPID #### [facility] [address] [address] [address] Jeimy Tenorio Cholesterol in HDL [Mass/Vol] 49 mg/dL Normal 40-60 [facility] Comment on above: Performed By: #### B MP, CMREP, LIPID #### [facility] [address] [address] [address] Jeimy eTnorio Cholesterol in LDL [Mass/Vol] 64.6 mg/dL Normal [facility] Comment on above: Performed By: #### B MP, CMREP, LIPID #### [facility] [address] [address] [address] Jeimy Tenorio Cholesterol.total/Cho lesterol in HDL [Mass ratio] 2.9 {ratio} Normal [facility] Comment on above: Performed By: #### B MP, CMREP, LIPID #### [facility] [address] [address] [address] Jeimy Tenorio HDL NORMAL > or = 60 mg/dl - LO W CARDIOVASCULAR RISK <40 mg/dl - HIGH CARDIOVASCULAR RISK Normal [facility] Comment on above: Performed By: #### B MP, CMREP, LIPID #### [facility] [address] [address] [address] Jeimy Tenorio LDL CALC NORMAL SEE BELOW Normal [facility] Comment on above: Result Comment: <100 mg/dl OPTIMAL 100 - 129 mg/dl NEAR OR ABOVE OPTIMAL 130 - 159 mg/dl BORDERLINE HIGH 160 - 189 mg/dl HIGH >190 mg/dl VERY HIGH Performed By: #### B MP, CMREP, LIPID #### [facility] [address] [address] [address] Jeiym Tenorio Triglyceride [Mass/Vol] 142 mg/dL Normal <=150 [facility] Comment on above: Performed By: #### B MP, CMREP, LIPID #### [facility] [address] [address] [address] Jeimy Tenorio VLDL CALC 28.4 mg/dL Normal [facility] Comment on above: Performed By: #### B MP, CMREP, LIPID #### [facility] [address] [address] [address] Jeimy Tenorio PROF CHEM 8 (BAS METB)on Anion gap [Moles/Vol] 10.1 mmol/L Normal [facility] Comment on above: Performed By: #### B MP, CMREP, LIPID #### [facility] [address] [place] [address] Dr. Jeimy Tenorio Calcium [Mass/Vol] 8.0 mg/dL Critically low 8.5-10.1 [facility] Comment on above: Performed By: #### B MP, CMREP, LIPID #### [facility] [address] [place] [address] Dr. Jeimy Tenorio Chloride [Moles/Vol] 104 mmol/L Normal 98-107 [facility] Comment on above: Performed By: #### B MP, CMREP, LIPID #### [facility] [address] [place] [address] Dr. Jeimy Tenorio CO2 [Moles/Vol] 27.0 mmol/L Normal 21.0-32.0 [facility] Comment on above: Performed By: #### B MP, CMREP, LIPID #### [facility] [address] [place] [address] Dr. Jeimy Tenorio Creatinine [Mass/Vol] 0.79 mg/dL Normal 0.70-1.30 [facility] Comment on above: Performed By: #### B MP, CMREP, LIPID #### [facility] [address] [address] [address] Jeimy Tenorio EGFR-AF MALDIVIAN >60 Normal >=60 [facility] Comment on above: Performed By: #### B MP, CMREP, LIPID #### [facility] [address] [address] [address] Jeimy Tenorio EGFR-NON AF MALDIVIAN >60 Normal >=60 [facility] Comment on above: Performed By: #### B MP, CMREP, LIPID #### [facility] [address] [address] [address] Jeimy Tenorio Glucose [Mass/Vol] 101 mg/dL Normal 74-106 [facility] Comment on above: Performed By: #### B MP, CMREP, LIPID #### [facility] [address] [place] [address] Dr. Jeimy Tenorio Potassium [Moles/Vol] 4.1 mmol/L Normal 3.5-5.1 [facility] Comment on above: Performed By: #### B MP, CMREP, LIPID #### [facility] [address] [address] [address] Jeimy Tenorio Sodium [Moles/Vol] 137 mmol/L Normal 136-145 [facility] Comment on above: Performed By: #### B MP, CMREP, LIPID #### [facility] [address] [address] [address] Jeimy Tenorio Urea nitrogen [Mass/Vol] 15.0 mg/dL Normal 7.0-18.0 [facility] Comment on above: Performed By: #### B MP, CMREP, LIPID #### [facility] [address] [place] [address] Dr. Jeimy eTnorio Urea nitrogen/Creatinine [Mass ratio] 19.0 mg/mg Normal [facility] Comment on above: Performed By: #### B MP, CMREP, LIPID #### [facility] [address] [place] [address] Dr. Jeimy Tenorio CARDIAC SAWYER ADMITon 022 CK [Catalytic activity/Vol] 50 U/L Normal 39-308 [facility] Comment on above: Performed By: #### C BC #### [facility] [address] [place] [address] Dr. Jeimy Tenorio CK.MB [Mass/Vol] 0.80 ng/mL Normal <=3.60 [facility] Comment on above: Performed By: #### C BC #### [facility] [address] [place] [address] Dr. Jeimy Tenorio HSTROP 5.2 pg/mL Normal 4.0-76.1 [facility] Comment on above: Result Comment: CUT- OFF POINTS HAVE BEEN ESTABLISHED BASED ON THE FOURTH UNIVERSAL DEFINITIONS OF MYOCARDIAL INFARCTION. THE UPPER REFERENCE LIMIT (URL) OF TROPONIN, DEFINED THE 99TH PERCENTILE OF cTnI DISTRIBUTION IN A REFERENCE POPULATION, HAS BEEN CONFIRMED THE DECISION THRESHOLD FOR [place] DIAGNOSIS. Performed By: #### C BC #### [facility] [address] [place] [address] Dr. Jeimy Tenorio MAGALIE 41 ng/mL Normal 16-96 [facility] Comment on above: Performed By: #### C BC #### [facility] [address] [place] [address] Dr. Jeimy Tenorio CBC AUTO DIFFon 06-11-2022 BASO # 0.0 103/ul Normal 0.0-0.1 [facility] Comment on above: Performed By: #### C BC #### [facility] [address] [place] [address] Dr. Jeimy Tenorio Basophils/100 WBC (Bld) 0.6 % Normal 0.2-2.0 [facility] Comment on above: Performed By: #### C BC #### [facility] [address] [place] [address] Dr. Jeimy Tenorio EO # 0.4 103/ul Normal 0.0-0.7 [facility] Comment on above: Performed By: #### C BC #### [facility] [address] [place] [address] Dr. Jeimy Tenorio Eosinophils/100 WBC (Bld) 4.9 % Normal 0.9-7.0 [facility] Comment on above: Performed By: #### C BC #### [facility] [address] [place] [address] Dr. Jeimy Tenorio Erythrocyte distribution width (RBC) [Ratio] 13.1 % Normal 11.0-15.0 [facility] Comment on above: Performed By: #### C BC #### [facility] [address] [place] [address] Dr. Jeimy Tenorio Hematocrit (Bld) [Volume fraction] 38.1 % Critically low 42.0-54.0 [facility] Comment on above: Performed By: #### C BC #### [facility] [address] [place] [address] Dr. Jeimy Tenorio Hemoglobin (Bld) [Mass/Vol] 13.0 g/dL Critically low 14.0-18.0 [facility] Comment on above: Performed By: #### C BC #### [facility] [address] [place] [address] Dr. Jeimy Tenorio IG # 0.02 10e3/ul Normal 0.00-0.03 [facility] Comment on above: Performed By: #### C BC #### [facility] [address] [place] [address] Dr. Jeimy Tenorio IG % 0.3 % Normal 0.0-0.5 [facility] Comment on above: Performed By: #### C BC #### [facility] [address] [place] [address] Dr. Jeimy Tenorio LYMPH # 1.7 103/ul Normal 1.2-3.8 [facility] Comment on above: Performed By: #### C BC #### [facility] [address] [place] [address] Dr. Jeimy Tenorio Lymphocytes/100 WBC (Bld) 22.9 % Normal 20.5-60.0 [facility] Comment on above: Performed By: #### C BC #### [facility] [address] [place] [address] Dr. Jeimy Tenorio MANUAL DIFF REQ NO Normal [facility] Comment on above: Performed By: #### C BC #### [facility] [address] [place] [address] Dr. Jeimy Tenorio MCH (RBC) [Entitic mass] 33.5 pg Normal 25.9-34.0 [facility] Comment on above: Performed By: #### C BC #### [facility] [address] [address] [address] Jeimy Tenorio MCHC (RBC) [Mass/Vol] 34.1 g/dL Normal 29.9-35.2 [facility] Comment on above: Performed By: #### C BC #### [facility] [address] [place] [address] Dr. Jeimy Tenorio MCV (RBC) [Entitic vol] 98.2 fL Critically high 80.0-94.0 [facility] Comment on above: Performed By: #### C BC #### [facility] [address] [place] [address] Dr. Jeimy Tenorio MONO # 0.8 103/ul Normal 0.3-0.8 [facility] Comment on above: Performed By: #### C BC #### [facility] [address] [place] [address] Dr. Jeimy Tenorio Monocytes/100 WBC (Bld) 11.5 % Normal 1.7-12.0 [facility] Comment on above: Performed By: #### C BC #### [facility] [address] [place] [address] Dr. Jeimy Tenorio NEUT # 4.3 103/ul Normal 1.4-6.5 [facility] Comment on above: Performed By: #### C BC #### [facility] [address] [place] [address] Dr. Jeimy Tenorio Neutrophils/100 WBC (Bld) 59.8 % Normal 43.0-75.0 [facility] Comment on above: Performed By: #### C BC #### [facility] [address] [place] [address] Dr. Jeimy Tenorio Platelet mean volume (Bld) [Entitic vol] 9.8 fL Normal 9.5-13.5 [facility] Comment on above: Performed By: #### C BC #### [facility] [address] [place] [address] Dr. Jeimy Tenorio PLT 181 103/ul Normal 150-450 [facility] Comment on above: Performed By: #### C BC #### [facility] [address] [place] [address] Dr. Jeimy Tenorio RBC 3.88 106/ul Critically low 4.70-6.10 [facility] Comment on above: Performed By: #### C BC #### [facility] [address] [place] [address] Dr. Jeimy Tenorio WBC 7.2 103/ul Normal 4.0-11.0 [facility] Comment on above: Performed By: #### C BC #### [facility] [address] [place] [address] Dr. Jeimy Tenorio D-DIMERon 06-11-2022 D-DIMER 0.63 mg/L FEU Critically high <=0.59 [facility] Comment on above: Performed By: #### D DIM #### [facility] [address] [place] [address] Dr. Jeimy Tenorio D-DIMER COMMENTS SEE BELOW Normal [facility] Comment on above: Result Comment: Incr [...] hospitalization. Performed By: #### D DIM #### [facility] [address] [place] [address] Dr. Jeimy Tenorio PROF 14(COMP METB)on 022 Albumin [Mass/Vol] 3.3 g/dL Critically low 3.4-5.0 [facility] Comment on above: Performed By: #### C BC #### [facility] [address] [place] [address] Dr. Jeimy Tenorio Albumin/Globulin [Mass ratio] 0.8 {ratio} Normal [facility] Comment on above: Performed By: #### C BC #### [facility] [address] [place] [address] Dr. Jeimy Tenorio ALP [Catalytic activity/Vol] 160 U/L Critically high 46-116 [facility] Comment on above: Performed By: #### C BC #### [facility] [address] [place] [address] Dr. Jeimy Tenorio ALT [Catalytic activity/Vol] 26 U/L Normal 16-63 [facility] Comment on above: Performed By: #### C BC #### [facility] [address] [address] [address] Jeimy Tenorio Anion gap [Moles/Vol] 10.4 mmol/L Normal [facility] Comment on above: Performed By: #### C BC #### [facility] [address] [place] [address] Dr. Jeimy Tenorio AST [Catalytic activity/Vol] 16 U/L Normal 15-37 [facility] Comment on above: Performed By: #### C BC #### [facility] [address] [place] [address] Dr. Jeimy Tenorio Bilirubin [Mass/Vol] 0.2 mg/dL Normal 0.2-1.0 [facility] Comment on above: Performed By: #### C BC #### [facility] [address] [place] [address] Dr. Jeimy Tenorio Calcium [Mass/Vol] 8.2 mg/dL Critically low 8.5-10.1 [facility] Comment on above: Performed By: #### C BC #### [facility] [address] [place] [address] Dr. Jeimy Tenorio Chloride [Moles/Vol] 105 mmol/L Normal 98-107 [facility] Comment on above: Performed By: #### C BC #### [facility] [address] [place] [address] Dr. Jeimy Tenorio CO2 [Moles/Vol] 26.5 mmol/L Normal 21.0-32.0 [facility] Comment on above: Performed By: #### C BC #### [facility] [address] [place] [address] Dr. Jeimy Tenorio Creatinine [Mass/Vol] 0.96 mg/dL Normal 0.70-1.30 [facility] Comment on above: Performed By: #### C BC #### [facility] [address] [place] [address] Dr. Jeimy Tenorio EGFR-AF MALDIVIAN >60 Normal >=60 [facility] Comment on above: Performed By: #### C BC #### [facility] [address] [address] [address] Jeimy Tenorio EGFR-NON AF MALDIVIAN >60 Normal >=60 [facility] Comment on above: Performed By: #### C BC #### [facility] [address] [address] [address] Jeimy Tenorio Globulin (S) [Mass/Vol] 4.0 g/dL Normal [facility] Comment on above: Performed By: #### C BC #### [facility] [address] [place] [address] Dr. Jeimy Tenorio Glucose [Mass/Vol] 140 mg/dL Critically high 74-106 [facility] Comment on above: Performed By: #### C BC #### [facility] [address] [place] [address] Dr. Jeimy Tenorio Potassium [Moles/Vol] 3.9 mmol/L Normal 3.5-5.1 [facility] Comment on above: Performed By: #### C BC #### [facility] [address] [place] [address] Dr. Jeimy Tenorio Protein [Mass/Vol] 7.3 g/dL Normal 6.4-8.2 [facility] Comment on above: Performed By: #### C BC #### [facility] [address] [place] [address] Dr. Jeimy Tenorio Sodium [Moles/Vol] 138 mmol/L Normal 136-145 [facility] Comment on above: Performed By: #### C BC #### [facility] [address] [place] [address] Dr. Jeimy Tenorio Urea nitrogen [Mass/Vol] 15.0 mg/dL Normal 7.0-18.0 [facility] Comment on above: Performed By: #### C BC #### [facility] [address], [place] [address] Dr. Jeimy Tenorio Urea nitrogen/Creatinine [Mass ratio] 15.6 mg/mg Normal [facility] Comment on above: Performed By: #### C BC #### [facility] [address], [place] [address] Dr. Jeimy Tenorio [facility] 10-30-2021 Albumin [Mass/Vol] 4.3 g/dL Normal 3.6-5.1 [facility] Comment on above: Performed By: #### 7 13, 0, 60512 #### [facility] [address] [address] Industrial Engineering Director: Yash Campuzano MD Albumin/Globulin [Mass ratio] 1.3 {ratio} Normal 1.0-2.5 [facility] Comment on above: Performed By: #### 7 13, 7599, 90561 #### [facility] [address] [address] Industrial Engineering Director: Yash Campuzano MD ALP [Catalytic activity/Vol] 152 U/L High 35-144 [facility] Comment on above: Performed By: #### 7 13, 0, 52438 #### [facility] [address] [address] Industrial Engineering Director: Yash Campuzano MD ALT [Catalytic activity/Vol] 30 U/L Normal 9-46 [facility] Comment on above: Performed By: #### 7 13, 0, 78996 #### [facility] [address] [address] Industrial Engineering Director: Yash Campuzano MD AST [Catalytic activity/Vol] 26 U/L Normal 10-35 [facility] Comment on above: Performed By: #### 7 13, 7599, 73088 #### [facility] [address] [address] Industrial Engineering Director: Yash Campuzano MD Bilirubin [Mass/Vol] 0.4 mg/dL Normal 0.2-1.2 [facility] Comment on above: Performed By: #### 7 , 7599, 20755 #### [facility] [address], [address] [place] [address] Industrial Engineering Director: Yash Campuzano MD BUN/CREATININE RATIO NOT APPLICABLE Normal 6-22 [facility] Comment on above: Performed By: #### 7 , 7599, 80649 #### [facility] [address], [address] [place] [address] Industrial Engineering Director: Yash Campuzano MD Calcium [Mass/Vol] 8.8 mg/dL Normal 8.6-10.3 [facility] Comment on above: Performed By: #### 7 13, 7599, 79688 #### [facility] [address] [address] Industrial Engineering Director: Yash Campuzano MD Chloride [Moles/Vol] 104 mmol/L Normal 98-110 [facility] Comment on above: Performed By: #### 7 13, 7599, 77455 #### [facility] [address] [address] Industrial Engineering Director: Yash Campuzano MD CO2 [Moles/Vol] 25 mmol/L Normal 20-32 [facility] Comment on above: Performed By: #### 7 , 7599, 36959 #### [facility] [address] [address] Industrial Engineering Director: Yash Campuzano MD Creatinine [Mass/Vol] 0.76 mg/dL Normal 0.70-1.25 [facility] Comment on above: Result Comment: For patients >49 years of age, the reference limit for Creatinine is approximately 13% higher for people identified as -Syrian. Performed By: #### 7 , 7599, 59532 #### [facility] [address] [address] Industrial Engineering Director: Yash Campuzano MD eGFR NON-AFR. MALDIVIAN 95 mL/min/1.73m2 Normal > OR = 60 [facility] Comment on above: Performed By: #### 7 , 7599, 19323 #### [facility] [address], [address] [place] [address] Industrial Engineering Director: Yash Campuzano MD GFR/1.73 sq M.predicted among blacks MDRD (S/P/Bld) [Vol rate/Area] 110 mL/min/{1.73_m2} Normal > OR = 60 [facility] Comment on above: Performed By: #### 7 13, 7599, 46704 #### [facility] [address], [address] [place] [address] Industrial Engineering Director: Yash Campuzano MD Globulin (S) [Mass/Vol] 3.2 g/dL Normal 1.9-3.7 [facility] Comment on above: Performed By: #### 7 , 7599, 28700 #### [facility] [address], [address] [place] [address] Industrial Engineering Director: Yash Campuzano MD Glucose [Mass/Vol] 103 mg/dL High 65-99 [facility] Comment on above: Result Comment: Fasting reference interval For someone without known diabetes, a glucose value between 100 and 125 mg/dL is consistent with prediabetes and should be confirmed with a follow-up test. Performed By: #### 7 , 7599, 91208 #### [facility] [address], [address] [place] [address] Industrial Engineering Director: Yash Campuzano MD Potassium [Moles/Vol] 4.7 mmol/L Normal 3.5-5.3 [facility] Comment on above: Performed By: #### 7 , 7599, 64305 #### [facility] [address], [address] [place] [address] Industrial Engineering Director: Yash Campuzano MD Protein [Mass/Vol] 7.5 g/dL Normal 6.1-8.1 [facility] Comment on above: Performed By: #### 7 , 7599, 51279 #### [facility] [address] [address] Industrial Engineering Director: Yash Campuzano MD Sodium [Moles/Vol] 137 mmol/L Normal 135-146 [facility] Comment on above: Performed By: #### 7 13, 7600, 49657 #### [facility] [address] [address] Industrial Engineering Director: Yash Campuzano MD Urea nitrogen [Mass/Vol] 15 mg/dL Normal 7-25 [facility] Comment on above: Performed By: #### 7 13, 7600, 76638 #### [facility] [address], [address] [place] [address] Industrial Engineering Director: Yash Campuzano MD LIPID PANEL, [facility] 12- Cholesterol [Mass/Vol] 180 mg/dL Normal <200 [facility] Comment on above: Order Comment: FASTI NG:YES FASTING: YES Performed By: #### 7 13, 0, 56512 #### [facility] [address] [address] Industrial Engineering Director: Yash Campuzano MD Cholesterol in HDL [Mass/Vol] 50 mg/dL Normal > OR = 40 [facility] Comment on above: Order Comment: FASTI NG:YES FASTING: YES Performed By: #### 7 13, 7600, 21757 #### [facility] [address] [address] Industrial Engineering Director: Yash Campuzano MD Cholesterol in LDL [Mass/Vol] [...] LDL-C. Gennaro ALMANZAR et al. KO. 2013;310(19): 0785-1449 ([email or web address]) Performed By: #### 7 13, 7600, 27852 #### [facility] [address], [address] [place] [address] Industrial Engineering Director: Yash Campuzano MD Cholesterol.total/Cho lesterol in HDL [Mass ratio] 3.6 {ratio} Normal <5.0 [facility] Comment on above: Order Comment: FASTI NG:YES FASTING: YES Performed By: #### 7 , 7599, 82061 #### [facility] [address], [address] [place] [address] Industrial Engineering Director: Yash Campuzano MD NON HDL CHOLESTEROL 130 mg/dL (calc) High <130 [facility] Comment on above: Order Comment: FASTI NG:YES FASTING: YES Result Comment: For patients with diabetes plus 1 major ASCVD risk factor, treating to a non-HDL-C goal of <100 mg/dL (LDL-C of <70 mg/dL) is considered a therapeutic option. Performed By: #### 7 , 7599, 70123 #### [facility] [address] [address] Industrial Engineering Director: Yash Campuzano MD Triglyceride [Mass/Vol] 280 mg/dL High <150 [facility] Comment on above: Order Comment: FASTI NG:YES FASTING: YES Result Comment: If a non-fasting specimen was collected, consider repeat triglyceride testing on a fasting specimen if clinically indicated. Marquise et al. J. of Clin. Lipidol. 2015;9:129-169. Performed By: #### 7 , 7599, 80716 #### [facility] [address] [place] [address] Industrial Engineering Director: Yash Campuzano MD PHENYTOINon 10-30-2021 Phenytoin [Mass/Vol] 18.9 ug/mL Normal 10.0-20.0 [facility] Comment on above: Performed By: #### 7 , 7599, 30960 #### [facility] [address], [address] [place] [address] Industrial Engineering Director: Yash Campuzano MD CBC (INCLUDES DIFF/PLT)on Basophils (Bld) [#/Vol] 0.071 10*3/uL Normal 0-200 [facility] Comment on above: Performed By: #### 7 13, 7599, 6399 #### [facility] [address] [place] [address] Industrial Engineering Director: Yash Campuzano MD Basophils/100 WBC (Bld) 1.2 % Normal [facility] Comment on above: Performed By: #### 7 , 7599, 6399 #### [facility] of [address], [address] [place] [address] Industrial Engineering Director: Yash Campuzano MD Eosinophils (Bld) [#/Vol] 0.277 10*3/uL Normal 15-500 [facility] Comment on above: Performed By: #### 7 , 7599, 6399 #### [facility] [address] [place] [address] Industrial Engineering Director: Yash Campuzano MD Eosinophils/100 WBC (Bld) 4.7 % Normal [facility] Comment on above: Performed By: #### 7 , 7599, 6399 #### [facility] [address] [place] [address] Industrial Engineering Director: Yash Campuzano MD Erythrocyte distribution width (RBC) [Ratio] 12.8 % Normal 11.0-15.0 [facility] Comment on above: Performed By: #### 7 , 7599, 6399 #### [facility] [address] [place] [address] Industrial Engineering Director: Yash Campuzano MD Hematocrit (Bld) [Volume fraction] 42.1 % Normal 38.5-50.0 [facility] Comment on above: Performed By: #### 7 13, 7599, 6399 #### [facility] [address] [place] [address] Industrial Engineering Director: Yash Campuzano MD Hemoglobin (Bld) [Mass/Vol] 14.9 g/dL Normal 13.2-17.1 [facility] Comment on above: Performed By: #### 7 , 7599, 6399 #### [facility] of [address], [address] [place] [address] Industrial Engineering Director: Yash Campuzano MD Lymphocytes (Bld) [#/Vol] 1.068 10*3/uL Normal 850-3900 [facility] Comment on above: Performed By: #### 7 , 7599, 6399 #### [facility] [place] [address] Industrial Engineering Director: Yash Campuzano MD Lymphocytes/100 WBC (Bld) 18.1 % Normal [facility] Comment on above: Performed By: #### 7 , 7599, 6399 #### [facility] [place] [address] Industrial Engineering Director: Yash Campuzano MD MCH (RBC) [Entitic mass] 32.9 pg Normal 27.0-33.0 [facility] Comment on above: Performed By: #### 7 , 7599, 6399 #### [facility] [place] [address] Industrial Engineering Director: Yash Campuzano MD MCHC (RBC) [Mass/Vol] 35.4 g/dL Normal 32.0-36.[address] [facility] Comment on above: Performed By: #### 7 , 7599, 6399 #### [facility] [place] [address] Industrial Engineering Director: Yash Campuzano MD MCV (RBC) [Entitic vol] 92.9 fL Normal 80.0-100.0 [facility] Comment on above: Performed By: #### 7 , 7599, 6399 #### [facility] [place] [address] Industrial Engineering Director: Yash Campuzano MD Monocytes (Bld) [#/Vol] 0.531 10*3/uL Normal 200-950 [facility] Comment on above: Performed By: #### 7 , 7599, 6399 #### [facility] of [address] [place] [address] Industrial Engineering Director: Yash Campuzano MD Monocytes/100 WBC (Bld) 9.0 % Normal [facility] Comment on above: Performed By: #### 7 13, 7599, 6399 #### [facility] of [address], [address] [place] [address] Industrial Engineering Director: Yash Campuzano MD Neutrophils (Bld) [#/Vol] 3.953 10*3/uL Normal 3430-2317 [facility] Comment on above: Performed By: #### 7 13, 7599, 6399 #### [facility] [place] [address] Industrial Engineering Director: Yash Campuzano MD Neutrophils/100 WBC (Bld) 67 % Normal [facility] Comment on above: Performed By: #### 7 13, 7599, 6399 #### [facility] [place] [address] Industrial Engineering Director: Yash Campuzano MD Platelet mean volume (Bld) [Entitic vol] 11.0 fL Normal 7.5-12.5 [facility] Comment on above: Performed By: #### 7 13, 7599, 6399 #### [facility] [place] [address] Industrial Engineering Director: Yash Campuzano MD Platelets (Bld) [#/Vol] 200 10*3/uL Normal 140-400 [facility] Comment on above: Performed By: #### 7 13, 7599, 6399 #### [facility] of [address], [address] [place] [address] Industrial Engineering Director: Yash Campuzano MD RBC (Bld) [#/Vol] 4.53 10*6/uL Normal 4.20-5.80 [facility] Comment on above: Performed By: #### 7 , 7599, 6399 #### [facility] of [address], [address] [place] [address] Industrial Engineering Director: Yash Campuzano MD WBC (Bld) [#/Vol] 5.9 10*3/uL Normal 3.8-10.8 [facility] Comment on above: Performed By: #### 7 13, 7600, 6399 #### [facility] [address], [address] [place] [address] Industrial Engineering Director: Yash Campuzano MD LIPID PANEL, [place] [address] Cholesterol [Mass/Vol] 218 mg/dL High <200 [facility] Comment on above: Order Comment: FASTI NG:YES FASTING: YES Performed By: #### 7 13, 7600, 6399 #### [facility] [address], [address] [place] [address] Industrial Engineering Director: Yash Campuzano MD Cholesterol in HDL [Mass/Vol] 55 mg/dL Normal > OR = 40 [facility] Comment on above: Order Comment: FASTI NG:YES FASTING: YES Performed By: #### 7 , 827, 6899 #### [facility] [address], [address] [place] [address] Industrial Engineering Director: Yash Campuzano MD Cholesterol in LDL [Mass/Vol] [...] LDL-C. Gennaro ALMANZAR et al. KO. 2013;310(19): 6703-0009 ([email or web address] Software/[email or web address]) Performed By: #### 7 13, 7600, 6399 #### [facility] [address], [address] [place] [address] Industrial Engineering Director: Yash Campuzano MD Cholesterol.total/Cho lesterol in HDL [Mass ratio] 4.0 {ratio} Normal <5.0 [facility] Comment on above: Order Comment: FASTI NG:YES FASTING: YES Performed By: #### 7 , 049, 1999 #### [facility] [place] [address] Industrial Engineering Director: Yash Campuzano MD NON HDL CHOLESTEROL 163 mg/dL (calc) High <130 [facility] Comment on above: Order Comment: FASTI NG:YES FASTING: YES Result Comment: For patients with diabetes plus 1 major ASCVD risk factor, treating to a non-HDL-C goal of <100 mg/dL (LDL-C of <70 mg/dL) is considered a therapeutic option. Performed By: #### 7 , 138, 2299 #### [facility] [place] [address] Industrial Engineering Director: Yash Campuzano MD Triglyceride [Mass/Vol] 200 mg/dL High <150 [facility] Comment on above: Order Comment: FASTI NG:YES FASTING: YES Result Comment: If a non-fasting specimen was collected, consider repeat triglyceride testing on a fasting specimen if clinically indicated. Marquise et al. J. of Clin. Lipidol. 2015;9:129-169. Performed By: #### 7 , 171, 1699 #### [facility] [place] [address] Industrial Engineering Director: Yash Campuzano MD PHENYTOINon 04-18-2021 Phenytoin [Mass/Vol] 25.0 ug/mL High 10.0-20.0 [facility] Comment on above: Performed By: #### 7 , 401, 6999 #### [facility] [address], [address] [place] [address] Industrial Engineering Director: Yash Campuzano MD APTTon 11-20-2020 aPTT Coag (Bld) [Time] 33.4 s Normal 25.0-35.0 [facility] Comment on above: Result Comment: ALL [...] THIS PURPOSE. Performed By: #### 5 6101, 37529 ####[facility] BNP EDon 11-20-2020 Natriuretic peptide B (Bld) [Mass/Vol] 111 pg/mL High 0-100 [facility] Comment on above: Result Comment: Give n the appropriate clinical setting a BNP result of >100 pg/mL indicates congestive heart failure. Performed By: #### 3 0935 #### [facility] [address] CBC W/DIFFon 11-20-2020 ABS IMM GRANS 0.0 10*3/uL Normal 0.0-0.2 [facility] Comment on above: Performed By: #### 5 0103 ####[facility] ABS NEUTROPHILS 3.9 10*3/uL Normal 1.6-7.6 [facility] Comment on above: Performed By: #### 5 0103 ####[facility] Basophils (Bld) [#/Vol] 0.1 10*3/uL Normal 0.0-0.2 [facility] Comment on above: Performed By: #### 5 0103 ####[facility] Basophils/100 WBC (Bld) 1.0 % Normal 0.0-1.0 [facility] Comment on above: Performed By: #### 5 0103 ####[facility] Eosinophils (Bld) [#/Vol] 0.3 10*3/uL Normal 0.0-0.5 [facility] Comment on above: Performed By: #### 5 3 ####[facility]3000 [facility] [address], [facility] Eosinophils/100 WBC (Bld) 5.1 % Normal 0.0-6.0 [facility] Comment on above: Performed By: #### 3 ####[facility]3000 [facility].[address] Erythrocyte distribution width (RBC) [Ratio] 13.1 % Normal 11.5-15.0 [facility] Comment on above: Performed By: #### 3 ####[facility] Hematocrit (Bld) [Volume fraction] 45.4 % Normal 39.0-50.0 [facility] Comment on above: Performed By: #### 102 ####[facility]3000 [facility].[address] Hemoglobin (Bld) [Mass/Vol] 14.8 g/dL Normal 13.0-17.0 [facility] Comment on above: Performed By: #### 102 ####[facility] IMMATURE GRANS 0.3 % Normal 0.0-1.0 [facility] Comment on above: Performed By: #### 3 ####[facility]3000 [facility].[address] Lymphocytes (Bld) [#/Vol] 1.0 10*3/uL Low 1.2-4.0 [facility] Comment on above: Performed By: #### 3 ####[facility] [place] [address], [facility] Lymphocytes/100 WBC (Bld) 17.5 % Low 20.0-45.0 [facility] Comment on above: Performed By: #### 102 ####[facility] MCH (RBC) [Entitic mass] 32.5 pg Normal 27.0-33.0 [facility] Comment on above: Performed By: #### 5 3 ####[facility] MCHC (RBC) [Mass/Vol] 32.6 g/dL Normal 32.0-35.0 [facility] Comment on above: Performed By: #### 5 3 ####[facility] MCV (RBC) [Entitic vol] 99.6 fL High 82.0-98.0 [facility] Comment on above: Performed By: #### 3 ####[facility] Monocytes (Bld) [#/Vol] 0.6 10*3/uL Normal 0.1-1.0 [facility] Comment on above: Performed By: #### 5 3 ####[facility] MONOS 9.4 % Normal 5.0-12.0 [facility] Comment on above: Performed By: #### 5 3 ####[facility] Neutrophils/100 WBC (Bld) 66.7 % Normal 40.0-72.0 [facility] Comment on above: Performed By: #### 5 3 ####[facility] Nucleated RBC/100 WBC (Bld) [Ratio] 0 % Normal 0-0 [facility] Comment on above: Performed By: #### 3 ####[facility] [place] [address], [facility] PLAT CNT 175 10*3/uL Normal 150-400 [facility] Comment on above: Performed By: #### 5 102 ####[facility] [place] [address], [facility] RBC (Bld) [#/Vol] 4.56 10*6/uL Normal 4.20-5.70 [facility] Comment on above: Performed By: #### 5 010 ####[facility] [place] [address], [facility] WBC (Bld) [#/Vol] 5.88 10*3/uL Normal 4.00-10.60 [facility] Comment on above: Performed By: #### 5 102 ####[facility] [place] [address], [facility] COMP METABOLIC PANELon 11-20 Albumin [Mass/Vol] 4.0 g/dL Normal 3.5-5.7 [facility] Comment on above: Performed By: #### 0 0121, 39346, 71508, 03273 #### [facility] [address] [place] [address], [facility] ALKALINE PHOSPH 130 IU/L High 34-104 [facility] Comment on above: Performed By: #### 0 0121, 64999, 76495, 20084 #### [facility] [address] [place] [address], [facility] ALT [Catalytic activity/Vol] 18 U/L Normal 7-52 [facility] Comment on above: Performed By: #### 0 0121, 94488, 19720, 21998 #### [facility] [address] [place] [address], [facility] AST [Catalytic activity/Vol] 19 U/L Normal 13-39 [facility] Comment on above: Performed By: #### 0 0121, 74675, 09721, 93951 #### [facility] [address] [place] [address], [place] Bilirubin [Mass/Vol] 0.4 mg/dL Normal 0.3-1.0 [facility] Comment on above: Performed By: #### 0 0121, 45120, 74508, 03928 #### [facility] [address] [place] [address], [place] Calcium [Mass/Vol] 9.0 mg/dL Normal 8.6-10.3 [facility] Comment on above: Performed By: #### 0 0121, 21866, 43381, 30302 #### [facility] [address] [place] [address], [place] Chloride [Moles/Vol] 103 mmol/L Normal 98-107 [facility] Comment on above: Performed By: #### 0 0121, 16474, 64461, 68203 #### [facility] [address] [place] [address], [place] CO2 [Moles/Vol] 28 mmol/L Normal 21-31 [facility] Comment on above: Performed By: #### 0 0121, 04305, 41909, 12161 #### [facility] [address] [place] [address], [place] Creatinine [Mass/Vol] 0.77 mg/dL Normal 0.70-1.30 [facility] Comment on above: Performed By: #### 0 0121, 10284, 26765, 77586 #### [facility] [address] [place] [address], [place] GFR/1.73 sq M.predicted among blacks MDRD (S/P/Bld) [Vol rate/Area] mL/min/{1.73_m2} Normal >60 [facility] Comment on above: Performed By: #### 0 0121, 99430, 45453, 99827 #### [facility] [address] [place] [address], [place] GFR/1.73 sq M.predicted among non-blacks MDRD (S/P/Bld) [Vol rate/Area] mL/min/{1.73_m2} Normal >60 [facility] Comment on above: Performed By: #### 0 0121, 04879, 62363, 52314 #### [facility] [address] [place] [address], [place] Glucose [Mass/Vol] 88 mg/dL Normal 70-100 [facility] Comment on above: Performed By: #### 0 0121, 36043, 88631, 07651 #### [facility] [address] [place] [address], [place] Potassium [Moles/Vol] 4.9 mmol/L Normal 3.5-5.1 [facility] Comment on above: Performed By: #### 0 0121, 16675, 25523, 24451 #### [facility] [address] [place] [address], [place] Protein [Mass/Vol] 7.3 g/dL Normal 6.0-8.3 [facility] Comment on above: Performed By: #### 0 0121, 85326, 44604, 39910 #### [facility] [address] [place] [address], [place] Sodium [Moles/Vol] 138 mmol/L Normal 136-145 [facility] Comment on above: Performed By: #### 0 0121, 19092, 66439, 52803 #### [facility] [address] [place] [address], [place] Urea nitrogen [Mass/Vol] 15 mg/dL Normal 7-25 [facility] Comment on above: Performed By: #### 0 0121, 18270, 57115, 15358 #### [facility] [address] [place] [address], [place] CTA HEADon 11-20-2020 CTA HEAD [facility] Department of Radiology [address] [place] [address] ======== Patient Name: NAZARIO CORTES : 1955 Sex: M Age: Race: White Pt. Location: [facility] Patient Status: E Ordered Date: 11/20/2020 11:20:00 AM Completed Date: 11/20/2020 12:11 PM Requesting Provider: MANUEL DUNN Attending Provider: KARINA JAY Report Copy To: Signs & Symptoms: Dizziness(vertigo) History: See Comments Comments: Bleed Exam: CTA HEAD ======== CTA BRAIN COMPARISON: None. HISTORY: Dizziness. TECHNIQUE: [...] stenosis of the major vessels of the [place]. origin of bilateral posterior cerebral arteries. IMPRESSION: Normal CTA of the brain. All CT scans at this facility use dose modulation, iterative reconstruction, and/or weight based dosing when appropriate to reduce radiation dose to as low as reasonably achievable. Electronically signed: Dhaval Ghotra. Transcribed by: [email or web address], User Resident: Electronically Signed by: DHAVAL GHOTRA @ 11/20/2020 12:58 PM Normal [facility] Comment on above: Order Comment: Bleed CTA NECKon 11-20-2020 CTA NECK [facility] Department of Radiology [address] [place] [id number] ======== Patient Name: NAZARIO CORTES : 1955 Sex: M Age: Race: White Pt. Location: [facility] Patient Status: E Ordered Date: 11/20/2020 11:20:00 AM Completed Date: 11/20/2020 12:11 PM Requesting Provider: MANUEL DUNN Attending Provider: KARINA JAY Report Copy To: Signs & Symptoms: Dizziness History: See Comments Comments: Exam: CTA NECK ======== CTA NECK 11/20/2020 12:11 PM CLINICAL INDICATIONS: [...] viewed on a separate workstation. The [place] Symptomatic Carotid Endarterectomy Trial (NASCET) method for [...] achievable Electronically signed: Dhaval Ghotra. Transcribed by: [email or web address], User Resident: Electronically Signed by: DHAVAL GHOTRA @ 11/20/2020 12:57 PM Normal [facility] DIRECT BILIon 11-20-2020 Bilirubin.direct [Mass/Vol] 0.1 mg/dL Normal 0.0-0.2 [facility] Comment on above: Order Comment: Liver Battery conflicts with Comprehensive Metabolic Panel. Liver Battery canceled and Direct Bilirubin added. Performed By: #### 0 0121, 64674, 77390, 02731 #### [facility] [address] [facility] LIPASE BLOODon 11-20-2020 LIPASE 27 Units/L Normal 11-82 [facility] Comment on above: Performed By: #### 0 0121, 46548, 45178, 64101 #### [facility] [address] POC SARS COV2 ANTIGEN NEGATI VEon 11-20-2020 POC SARS COV2 ANTIGEN N Negative Normal NEGATIVE [facility] Comment on above: Result Comment: Test performed on SmartFleet System for rapid detection of SARS-CoV-2. Negative [...] management. Performed By: #### 3 1919 #### [facility] [address] [place] [address], [facility] PORTABLE CHEST 1 VIEWon 12-3 1-2020 PORTABLE CHEST 1 VIEW [facility] Department of Radiology [address] [place] [address] ======== Patient Name: NAZARIO CORTES : 1955 Sex: M Age: Race: White Pt. Location: [facility] Patient Status: E Ordered Date: 11/20/2020 11:20:00 AM Completed Date: 11/20/2020 11:43 AM Requesting Provider: MANUEL DUNN Attending Provider: KARINA JAY Report Copy To: Signs & Symptoms: Chest Pain History: Comments: evaluate for Pneumonia Exam: PORTABLE CHEST 1 VIEW ======== PORTABLE CHEST 1 VIEW 11/20/2020 11:43 AM [...] reports Electronically signed: Dhaval Ghotra. Transcribed by: [email or web address], User Resident: JESSENIA ALFORD Electronically Signed by: DHAVAL GHOTRA @ 11/20/2020 12:32 PM I personally read this/these film(s) with this resident Normal [facility] Comment on above: Order Comment: evalu ate for Pneumonia PROTHROMBIN TIMEon 0 INR Coag (PPP) [Relative time] 0.95 {INR} Normal 0.91-1.16 [facility] Comment on above: Result Comment: ACCC P RECOMMENDED INR FOR WARFARIN THERAPY -------- ------- CONDITION INR PROPHYLAXIS OF VENOUS THROMBOSIS 2-3 (HIGH-RISK SURGERY) TREATMENT OF VENOUS THROMBOSIS 2-3 TREATMENT OF PULMONARY EMBOLISM 2-3 PREVENTION OF SYSTEMIC EMBOLISM: 2-3 ACUTE MYOCARDIAL INFARCTION TISSUE HEART VALVES VALVULAR HEART DISEASE ATRIAL FIBRILLATION RECURRENT SYSTEMIC EMBOLISM MECHANICAL HEART VALVE 2.5-3.5 FROM: ORAL ANTICOAGULANTS. MECHANISM OF ACTION, CLINICAL EFFECTIVENESS, AND OPTIMAL THERAPEUTIC RANGE. CHEST 1995;108:231S-246S. Performed By: #### 5 6101, 57719 ####[facility] [facility] [address], [facility] PT Coag (PPP) [Time] 12.7 s Normal 12.3-14.8 [facility] Comment on above: Result Comment: ALL RESULTS MUST BE INTERPRETED WITH RESPECT TO BLOOD DRAWING ARTIFACT OR DILUTION ERROR OF ANTICOAGULANT AT THE TIME OF SAMPLING. Performed By: #### 5 6101, 35519 ####[facility] TROPONIN-Ion 11-20-2020 Troponin I.cardiac [Mass/Vol] 0.00 ng/mL Normal 0.00-0.04 [facility] Comment on above: Order Comment: No: D o not add to previous draw Result Comment: REFE RENCE RANGES: 0.00 - 0.14 ng/ml NEGATIVE 0.15 - 0.25 ng/ml INDETERMINATE > 0.25 ng/ml INDICATIVE OF AN M.I. Performed By: #### 3 5200 #### [facility] [address] Troponin I.cardiac [Mass/Vol] 0.00 ng/mL Normal 0.00-0.04 [facility] Comment on above: Result Comment: REFE RENCE RANGES: 0.00 - 0.14 ng/ml NEGATIVE 0.15 - 0.25 ng/ml INDETERMINATE > 0.25 ng/ml INDICATIVE OF AN M.I. Performed By: #### 0 0121, 25504, 23832, 89172 #### [facility] [address] Vital Signs Date Time Vital Sign Value Performing Clinician Facility 01-21-2025 13:40-0500 Body height 185.4 cm Jignesh Gonsalez MD Work Phone: [facility] 01-21-2025 13:40-0500 Body mass index (BMI) [Ratio] 41.03 kg/m2 Jignesh Gonsalez MD Work Phone: [facility] 01-21-2025 13:40-0500 Body temperature 97.5 [degF] Jignesh Gonsalez MD Work Phone: [facility] 01-21-2025 13:40-0500 Body weight 141.07 kg Jignesh Gonsalez MD Work Phone: [facility] 01-21-2025 13:40-0500 Diastolic blood pressure 64 mm[Hg] Jignesh Gonsalez MD Work Phone: [facility] 01-21-2025 13:40-0500 Heart rate 87 /min Jignesh Gonsalez MD Work Phone: [facility] 01-21-2025 13:40-0500 Respiratory rate 20 /min Jignesh Gonsalez MD Work Phone: [facility] 01-21-2025 13:40-0500 SaO2% (BldA) [Mass fraction] 91 % Jignesh Gonsalez MD Work Phone: [facility] 01-21-2025 13:40-0500 Systolic blood pressure 130 mm[Hg] Jignesh Gonsalez MD Work Phone: [facility] 12-19-2024 13:35-0500 Body height 185.4 cm Amrik Pérez MD Work Phone: [facility] 12-19-2024 13:35-0500 Body mass index (BMI) [Ratio] 40.37 kg/m2 Amrik Pérez MD Work Phone: [facility] 12-19-2024 13:35-0500 Body weight 138.8 kg Amrik Pérez MD Work Phone: [facility] 12-19-2024 13:35-0500 Diastolic blood pressure 64 mm[Hg] Amrik Pérez MD Work Phone: [facility] 12-19-2024 13:35-0500 Heart rate 80 /min Amrik Pérez MD Work Phone: [facility] 12-19-2024 13:35-0500 Systolic blood pressure 112 mm[Hg] Amrik Pérez MD Work Phone: [facility] 11-22-2024 15:42-0500 Body height 185.4 cm Jignesh Gonsalez MD Work Phone: [facility] 11-22-2024 15:42-0500 Body mass index (BMI) [Ratio] 41.16 kg/m2 Jignesh Gonsalez MD Work Phone: [facility] 11-22-2024 15:42-0500 Body temperature 97.5 [degF] Jignesh Gonsalez MD Work Phone: [facility] 11-22-2024 15:42-0500 Body weight 141.52 kg Jignesh Gonsalez MD Work Phone: [facility] 11-22-2024 15:42-0500 Diastolic blood pressure 66 mm[Hg] Jignesh Gonsalez MD Work Phone: [facility] 11-22-2024 15:42-0500 Heart rate 33 /min Jignesh Gonsalez MD Work Phone: [facility] 11-22-2024 15:42-0500 Respiratory rate 20 /min Jignesh Gonsalez MD Work Phone: [facility] 11-22-2024 15:42-0500 SaO2% (BldA) [Mass fraction] 89 % Jignesh Gonsalez MD Work Phone: [facility] 11-22-2024 15:42-0500 Systolic blood pressure 148 mm[Hg] Jignesh Gonsalez MD Work Phone: [facility] 10-25-2024 15:32-0500 Body height 185.4 cm Jignesh Gonsalez MD Work Phone: [facility] 10-25-2024 15:32-0500 Body mass index (BMI) [Ratio] 40.9 kg/m2 Jignesh Gonsalez MD Work Phone: [facility] 10-25-2024 15:32-0500 Body temperature 97.5 [degF] Jignesh Gonsalez MD Work Phone: [facility] 10-25-2024 15:32-0500 Body weight 140.62 kg Jignesh Gonsalez MD Work Phone: [facility] 10-25-2024 15:32-0500 Diastolic blood pressure 70 mm[Hg] Jignesh Gonsalez MD Work Phone: [facility] 10-25-2024 15:32-0500 Heart rate 87 /min Jignesh Gonsalez MD Work Phone: [facility] 10-25-2024 15:32-0500 Respiratory rate 22 /min Jignesh Gonsalez MD Work Phone: [facility] 10-25-2024 15:32-0500 SaO2% (BldA) [Mass fraction] 90 % Jignesh Gonsalez MD Work Phone: [facility] 10-25-2024 15:32-0500 Systolic blood pressure 150 mm[Hg] Jignesh Gonsalez MD Work Phone: [facility] 09-07-2024 14:54-0400 Body height 185.42 cm MD Jignesh Gonsalez Work Phone: [facility] 09-07-2024 14:54-0400 Body mass index (BMI) [Ratio] 39.2 kg/m2 MD Jignesh Gonsalez Work Phone: [facility] 09-07-2024 14:54-0400 Body temperature 96.8 [degF] MD Jignesh Gonsalez Work Phone: [facility] 09-07-2024 14:54-0400 Body weight 134.94 kg MD Jignesh Gonsalez Work Phone: [facility] 09-07-2024 14:54-0400 Diastolic blood pressure 78 mm[Hg] MD Jignesh Gonsalez Work Phone: [facility] 09-07-2024 14:54-0400 Heart rate 93 /min MD Jignesh Gonsalez Work Phone: [facility] 09-07-2024 14:54-0400 Respiratory rate 20 /min MD Jignesh Gonsalez Work Phone: [facility] 09-07-2024 14:54-0400 SaO2% (BldA) [Mass fraction] 94 % MD Jignesh Gonsalez Work Phone: [facility] 09-07-2024 14:54-0400 Systolic blood pressure 119 mm[Hg] MD Jignesh Gonsalez Work Phone: [facility] 08-16-2024 10:34-0400 Body height 185.42 cm [facility] 08-16-2024 10:34-0400 Body mass index (BMI) [Ratio] 39 kg/m2 [facility] 08-16-2024 10:34-0400 Body temperature 96.8 [degF] [facility] 08-16-2024 10:34-0400 Body weight 134.26 kg [facility] 08-16-2024 10:34-0400 Diastolic blood pressure 77 mm[Hg] [facility] 08-16-2024 10:34-0400 Heart rate 73 /min [facility] 08-16-2024 10:34-0400 Respiratory rate 18 /min [facility] 08-16-2024 10:34-0400 SaO2% (BldA) [Mass fraction] 96 % [facility] 08-16-2024 10:34-0400 Systolic blood pressure 125 mm[Hg] [facility] 08-09-2024 13:10-0400 Body height 185.42 cm MD Jignesh Gonsalez Work Phone: [facility] 08-09-2024 13:10-0400 Body mass index (BMI) [Ratio] 39 kg/m2 MD Jignesh Gonsalez Work Phone: [facility] 08-09-2024 13:10-0400 Body temperature 98.5 [degF] MD Jignesh Gonsalez Work Phone: [facility] 08-09-2024 13:10-0400 Body weight 134.26 kg MD Jignesh Gonsalez Work Phone: [facility] 08-09-2024 13:10-0400 Diastolic blood pressure 64 mm[Hg] MD Jignesh Gonsalez Work Phone: [facility] 08-09-2024 13:10-0400 Heart rate 75 /min MD Jignesh Gonsalez Work Phone: [facility] 08-09-2024 13:10-0400 Respiratory rate 18 /min MD Jignesh Gonsalez Work Phone: [facility] 08-09-2024 13:10-0400 SaO2% (BldA) [Mass fraction] 93 % MD Jignesh Gonsalez Work Phone: [facility] 08-09-2024 13:10-0400 Systolic blood pressure 98 mm[Hg] MD Jignesh Gonsalez Work Phone: [facility] 05-15-2024 15:36-0400 Body height 185.42 cm MD Jignesh Gonsalez Work Phone: [facility] 05-15-2024 15:36-0400 Body mass index (BMI) [Ratio] 36.9 kg/m2 MD Jignesh Gonsalez Work Phone: [facility] 05-15-2024 15:36-0400 Body temperature 97.5 [degF] MD Jignesh Gonsalez Work Phone: [facility] 05-15-2024 15:36-0400 Body weight 127 kg MD Jignesh Gonsalez Work Phone: [facility] 05-15-2024 15:36-0400 Diastolic blood pressure 74 mm[Hg] MD Jignesh Gonsalez Work Phone: [facility] 05-15-2024 15:36-0400 Heart rate 81 /min MD Jignesh Gonsalez Work Phone: [facility] 05-15-2024 15:36-0400 Respiratory rate 18 /min MD Jignesh Gonsalez Work Phone: [facility] 05-15-2024 15:36-0400 SaO2% (BldA) [Mass fraction] 93 % MD Jignesh Gonsalez Work Phone: [facility] 05-15-2024 15:36-0400 Systolic blood pressure 119 mm[Hg] MD Jignesh Gonsalez Work Phone: [facility] 04-23-2024 13:06-0400 Body height 185.42 cm [facility] 04-23-2024 13:06-0400 Body mass index (BMI) [Ratio] 36.9 kg/m2 [facility] 04-23-2024 13:06-0400 Body temperature 97.3 [degF] [facility] 04-23-2024 13:06-0400 Body weight 127 kg [facility] 04-23-2024 13:06-0400 Diastolic blood pressure 56 mm[Hg] [facility] 04-23-2024 13:06-0400 Heart rate 80 /min [facility] 04-23-2024 13:06-0400 Respiratory rate 18 /min [facility] 04-23-2024 13:06-0400 SaO2% (BldA) [Mass fraction] 97 % [facility] 04-23-2024 13:06-0400 Systolic blood pressure 106 mm[Hg] [facility] 07-05-2023 10:00-0400 Body height 185.42 cm Luiz Riggs Other [facility] Other 07-05-2023 10:00-0400 Body mass index (BMI) [Ratio] 37.86 kg/m2 Luiz Riggs Other [facility] Other 07-05-2023 10:00-0400 Body weight 130.18 kg Luiz Riggs Other [facility] Other 07-05-2023 10:00-0400 Diastolic blood pressure 76 mm[Hg] Luiz Riggs Other [facility] Other 07-05-2023 10:00-0400 Systolic blood pressure 126 mm[Hg] Luiz Riggs Other [facility] Other 04-06-2022 17:40-0400 Body height 185.42 cm Neelam Morris Other [facility] Other 04-06-2022 17:40-0400 Body mass index (BMI) [Ratio] 36.15 kg/m2 Neelam Morris Other [facility] Other 04-06-2022 17:40-0400 Body temperature 98 [degF] Neelam Morris Other [facility] Other 04-06-2022 17:40-0400 Body weight 124.29 kg Neelam Morris Other [facility] Other 04-06-2022 17:40-0400 Diastolic blood pressure 69 mm[Hg] Neelam Morris Other [facility] Other 04-06-2022 17:40-0400 Respiratory rate 18 /min Neelam Morris Other [facility] Other 04-06-2022 17:40-0400 SaO2% (BldA) [Mass fraction] 95 % Neelam Morris Other [facility] Other 04-06-2022 17:40-0400 Systolic blood pressure 123 mm[Hg] Neelam Morris Other [facility] Other 12-28-2021 17:00-0500 Body height 185.42 cm Alex Bonilla Other [facility] Other 12-28-2021 17:00-0500 Body mass index (BMI) [Ratio] 37.47 kg/m2 Alex Bonilla Other [facility] Other 12-28-2021 17:00-0500 Body weight 128.82 kg Alex Bonilla Other [facility] Other Encounters Encounter Date Encounter Type Care Provider Facility Start: 01-22-2025 End: 01-22-2025 ambulatory [facility] Start: 01-21-2025 End: 01-21-2025 Bamboo flowsheet Jignesh Gonsalez MD Work Phone: [facility] Start: 01-21-2025 End: 01-21-2025 Bamboo flowsheet Jignesh Gonsalez MD Work Phone: [facility] Start: 01-21-2025 End: 01-21-2025 Office outpatient visit 15 minutes Jignesh Gonsalez MD Work Phone: [facility] Comment on above: Coronary artery dise ase involving [place] coronary artery of [place] heart without angina pectoris (CMS/HCC) (Primary Dx); SOB (shortness of breath) on exertion Start: 01-21-2025 End: 01-21-2025 ambulatory JIGNESH GONSALEZ Not Available Start: 01-12-2025 Evaluation and manag ement of inpatient [facility] Start: 01-11-2025 Evaluation and manag ement of inpatient [facility] Start: 01-11-2025 Evaluation and manag ement of inpatient [facility] Start: 01-11-2025 End: 01-13-2025 Evaluation and management of inpatient [facility] Start: 12-19-2024 End: 12-19-2024 Bamboo flowscuong Pérez MD Work Phone: [facility] Start: 12-19-2024 End: 12-19-2024 Bamboo flowscuong Pérez MD Work Phone: [facility] Start: 12-19-2024 End: 12-19-2024 Office outpatient new 30 minutes Amrik Pérez MD Work Phone: [facility] Comment on above: Deviated nasal septu m Start: 12-19-2024 End: 12-19-2024 ambulatory AMRIK PÉREZ Not Available Start: 11-28-2024 End: 11-28-2024 Refill Jignesh Gonsalez MD Work Phone: [facility] Comment on above: Seizure disorder (CM S/HCC) Start: 11-27-2024 End: 11-28-2024 Orders Only Jignesh Gonsalez MD Work Phone: [facility] Comment on above: Deviated nasal septu m (Primary Dx); Chronic rhinosinusitis Start: 11-27-2024 End: 11-27-2024 Patient encounter procedure Jose M Rea Work Phone: [facility] Comment on above: Screening for malign ant neoplasm of colon (Primary Dx) Start: 11-22-2024 End: 11-22-2024 Postop follow up visit related to original px Jignesh Gonsalez MD Work Phone: [facility] Comment on above: Medicare annual well ness [...] flowsheet Jignesh Gonsalez MD Work Phone: [facility] Start: 11-22-2024 End: 11-22-2024 Bamboo flowsheet Jignesh Gonsalez MD Work Phone: [facility] Start: 11-22-2024 End: 11-22-2024 Patient encounter procedure Jignesh Gonsalez MD Work Phone: [facility] Work Phone: Start: 11-15-2024 End: 11-15-2024 Refill Jignesh Gonsalez MD Work Phone: [facility] Comment on above: Degenerative lumbar spinal stenosis Start: 11-06-2024 End: 11-06-2024 Telephone encounter Imelda ALANIS Work Phone: [facility] Start: 10-30-2024 End: 10-30-2024 Clinical Support Chari Clary Faye CCC-A Work Phone: [facility] Comment on above: Sensorineural hearin g loss, bilateral (Primary Dx) Start: 10-30-2024 End: 10-30-2024 Bamboo flowsheet Chari Vela CCC-A Work Phone: [facility] Start: 10-30-2024 End: 10-30-2024 Bamboo flowsheet Chari Clary Faye CCC-A Work Phone: [facility] Start: 10-25-2024 End: 10-25-2024 Office outpatient [...] Start: 10-17-2024 End: 10-17-2024 ambulatory Yancy Lawson Facility:[facility] Start: 10-11-2024 End: 10-11-2024 Refill Jignesh Gonsalez MD Work Phone: [facility] Comment on above: Degenerative lumbar spinal stenosis Start: 09-25-2024 End: 09-25-2024 Refill Jignesh Gonsalez MD Work Phone: [facility] Comment on above: Seizure disorder (CM S/HCC) Start: 09-07-2024 End: 09-07-2024 ambulatory MD Jignesh Gonsalez Work Phone: [facility] Work Phone: Start: 09-07-2024 End: 09-07-2024 Patient encounter procedure MD Jignesh Gonsalez Work Phone: [facility] [place] Work Phone: Start: 08-16-2024 End: 08-16-2024 ambulatory [facility] Work Phone: Start: 08-16-2024 End: 08-16-2024 Patient encounter procedure [facility] [place] Work Phone: Start: 08-09-2024 End: 08-09-2024 ambulatory MD Jignesh Gonsalez Work Phone: [facility] Work Phone: Start: 08-09-2024 End: 08-09-2024 Patient encounter procedure MD Jignesh Gonsalez Work Phone: [facility] [place] Work Phone: Start: 08-08-2024 ambulatory [facility] Start: 07-26-2024 End: 07-26-[address] [facility] Start: 07-18-2024 End: 07-18-2024 Refill Jignesh Gonsalez MD Work Phone: [facility] Comment on above: Seizure disorder (CM S/HCC) Start: 06-13-2024 End: 06-13-2024 ambulatory IMELDA THOMPSON Not Available Start: 05-21-2024 End: 05-21-2024 ambulatory JIGNESH GONSALEZ Not Available Start: 05-16-2024 End: 05-16-2024 ambulatory IMELDA THOMPSON Not Available Start: 05-15-2024 End: 05-15-2024 ambulatory MD Jignesh Gonsalez Work Phone: [facility] Work Phone: Start: 05-15-2024 End: 05-15-2024 Patient encounter procedure MD Jignesh Gonsalez Work Phone: [facility] [place] Work Phone: Start: 04-23-2024 End: 04-23-2024 ambulatory [facility] Work Phone: Start: 04-23-2024 End: 04-23-2024 Patient encounter procedure [facility] [place] Work Phone: Start: 04-17-2024 End: 04-17-2024 ambulatory CORNELIO COTTER Not Available Start: 03-07-2024 End: 03-07-2024 ambulatory AMRIK PÉREZ Not Available Start: 02-21-2024 End: 02-21-2024 ambulatory JIGNESH QUINTEROR Not Available Start: 12-30-2023 ambulatory Chris CAMARILLO Facili ty: [place] Start: 12-21-2023 Telephone encounter Epifanio dennison MD Work Phone: [facility] Start: 12-20-2023 ambulatory [facility] Start: 07-18-2023 End: 07-19-2023 ambulatory JIGNESH NADERER Facility:[facility] [place] Start: 07-18-2023 End: 07-18-2023 Patient encounter procedure Chris CAMARILLO [facility] Start: 07-05-2023 Office outpatient ne w 30 minutes Luiz [facility] Start: 07-05-2023 End: 07-05-2023 ambulatory MD Jignesh Gonsalez Work Phone: [facility] Work Phone: Start: 07-05-2023 End: 07-05-2023 Patient encounter procedure MD Jignesh Gonsalez Work Phone: [facility] [place] Work Phone: Start: 01-07-2023 End: 01-08-2023 ambulatory [...] 04-06-2022 End: 04-06-2022 ambulatory Neelam Morris Other [facility] Other Start: 04-06-2022 Office outpatient vi sit 15 minutes Neelam Morris [facility] [place] Start: 12-28-2021 End: 12-28-2021 ambulatory Alex Bonilla Other [facility] Other Start: 12-28-2021 Office outpatient ne w 30 minutes Alex Bonilla [facility] Start: 11-20-2020 End: 11-20-2020 Emergency department patient visit KARINA JAY Facility:[facility] Procedures Date Procedure Procedure Detail Performing Clinician [...] Comment on above: Performed By: #### P [facility] #### [facility] [address] [place] [address] Dr. Jeimy Tenorio Extraction of cataract Patri ck CAMARILLO Procedure on foot Chris MERINO Plan of Treatment Date Care Activity Detail Author Start: 12-11-2034 Screening for malign ant neoplasm of colon [facility] Start: 11-22-2025 Medicare Annual Well ness (AWV) Medicare Annual Wellness (AWV) [facility] Start: 02-20-2025 End: 02-20-2025 Patient encounter procedure 02/20/2025 1:30 PM EDT Office Visit [facility] [address] [place] [address] Jignesh Gonsalez MD [address] [place] [address] [facility] Start: 01-21-2025 End: 01-21-2025 Patient encounter procedure 01/21/2025 1:45 PM EST Office Visit JENNA JONES [address] [place] [address] Jignesh Gonsalez MD [address] [place] [address] Arrived [facility] Comment on above: Arrived Start: 12-19-2024 End: 12-19-2024 Patient encounter procedure 12/19/2024 1:40 PM EST Office Visit [facility] [address] [place] [address] Amrik Pérez MD [address] [place] [address] Deviated nasal septum; Chronic rhinosinusitis [facility] Comment on above: Deviated nasal septu m; Chronic rhinosinusitis Start: 11-26-2024 End: 11-26-2024 Patient encounter procedure 11/26/2024 2:00 PM EST Office Visit [facility] [address] [place] [address] Jose M Rea DO [address] [place] [id number] [facility] Start: 11-22-2024 End: 11-22-2024 Patient encounter procedure [facility] Comment on above: Arrived Start: 11-22-2024 End: 11-22-2025 Basic metabolic 1998 panel - Serum or Plasma Basic metabolic panel Lab Routine Encounter for long-term current use of medication Expected: 11/22/2024 (Approximate), Expires: 11/22/2025 [facility] Work Phone: Comment on above: Expected: 11/22/2024 (Approximate), Expires: 11/22/2025 Start: 11-22-2024 End: 11-22-2025 CBC W Auto Differential panel - Blood CBC and differential Lab Routine Encounter for long-term current use of medication Expected: 11/22/2024 (Approximate), Expires: 11/22/2025 [facility] Comment on above: Expected: 11/22/2024 (Approximate), Expires: 11/22/2025 Start: 11-22-2024 End: 11-22-2025 Hepatic function 2000 panel - Serum or Plasma Hepatic function panel Lab Routine Encounter for long-term current use of medication Expected: 11/22/2024 (Approximate), Expires: 11/22/2025 [facility] Comment on above: Expected: 11/22/2024 (Approximate), Expires: 11/22/2025 Start: 11-22-2024 End: 11-22-2025 Lipid 1996 panel - Serum or Plasma Lipid panel Lab Routine Dyslipidemia ([facility]) Expected: 11/22/2024 (Approximate), Expires: 11/22/2025 [facility] Comment on above: Expected: 11/22/2024 (Approximate), Expires: 11/22/2025 Start: 11-22-2024 End: 11-22-2025 Prostate specific Ag [Mass/volume] in Serum or Plasma PSA Lab Routine Screening PSA (prostate specific antigen) Expected: 11/22/2024 (Approximate), Expires: 11/22/2025 [facility] Comment on above: Expected: 11/22/2024 (Approximate), Expires: 11/22/2025 Start: 11-22-2024 End: 11-22-2025 Thyrotropin [Units/volume] in Serum or Plasma TSH Lab Routine Class 3 severe obesity due to excess calories with serious comorbidity and body mass index (BMI) of 40.0 to 44.9 in adult ([facility]) Expected: 11/22/2024 (Approximate), Expires: 11/22/2025 [facility] Comment on above: Expected: 11/22/2024 (Approximate), Expires: 11/22/2025 Start: 10-25-2024 End: 10-25-2024 Patient encounter procedure [facility] Comment on above: Arrived Start: 10-25-2024 End: 10-25-2025 CT Maxillofacial region WO and W contrast IV CT SINUS WO IV CONTRAST Imaging Routine Chronic rhinosinusitis Expected: 10/25/2024, Expires: 10/25/2025 [facility] Work Phone: Comment on above: Expected: 10/25/2024 , Expires: 10/25/2025 Start: 09-27-2024 End: 09-27-2024 Patient encounter procedure 09/27/2024 3:30 PM EST Office Visit [facility] [address] [place] [id number] Jignesh Gonsalez MD [address] [place] [address] [facility] Start: 07-22-2024 Influenza vaccination Influenza Vacc ine (#1) [facility] Start: 12-30-2023 COVID-19 Vaccine ( season) COVID-19 Vaccine ( season) [facility] Start: 08-16-2023 Adult BMI Screening Adult BMI Screen ing [facility] Start: 08-16-2023 Fall Risk Screening Fall Risk Screen ing [facility] Start: 08-16-2023 Tobacco Screening Tobacco Screening [facility] Start: 08-05-2021 Pneumococcal Vaccine : 65+ Years (2 of 2 - PCV) Pneumococcal Vaccine: 65+ Years (2 of 2 - PCV) [facility] Start: 1974 Administration of varicella zoster vaccine Zoster (Shingles) Vaccine (1 of 2) [facility] Start: 1974 DTaP,Tdap and Td Vaccines (1 - Tdap) DTaP,Tdap and Td Vaccines (1 - Tdap) [facility] Start: 1967 Depression Screening Depression Scre ening [facility] Start: 1955 Medicare Annual Well ness (AWV) Medicare Annual Wellness (AWV) [facility] Start: 1955 Medicare Annual Well ness Visit Medicare Annual Wellness Visit [facility] Start: 1955 Screening for malign ant neoplasm of colon [facility] MR Knee - right WO contrast MR knee right wo IV contrast Imaging Routine Chronic pain of right knee Internal derangement of right knee Ordered: 10/25/2024 [facility] Comment on above: Ordered: 10/25/2024 Pulmonary function report Pulmonary Function Test Imaging Routine SOB (shortness of breath) on exertion Ordered: 01/21/2025 [facility] Work Phone: Comment on above: Ordered: 01/21/2025 XR Knee - right 4 Views [facility] Immunizations Immunization Date Immunization Notes Care Provider Fa jovon 10-11-2024 influenza virus vacc ine, unspecified formulation Jignesh Gonsalez MD Work Phone: [facility] 11-04-2023 Covid-19, Mrna, Lnp- s, Bivalent, Pf, 30mcg/0.3 ml Epifanio Kaufman MD Work Phone: [facility] 11-04-2023 Influenza, Seasonal, Quadrivalent, Adjuvanted Jignesh Gonsalez MD Work Phone: [facility] 11-04-2023 influenza virus vacc ine, unspecified formulation Jignesh Gonsalez MD Work Phone: [facility] 08-21-2022 influenza virus vacc ine, unspecified formulation Epifanio Kaufman MD Work Phone: [facility] 08-21-2022 Influenza, High-dose Seasonal, Quadrivalent, Preservative Free Jignesh Gonsalez MD Work Phone: [facility] 08-21-2022 SARS-COV-2 (COVID-19 ) Vaccine, Unspecified Epifanio Kaufman MD Work Phone: [facility] 08-06-2021 Influenza Vaccine, Quadrivalent, Adjuvanted Jignesh Gonsalez MD Work Phone: [facility] 02-25-2021 COVID-19, mRNA, LNP- S, PF, 100mcg/0.5mL Dose Jignesh Gonsalez MD Work Phone: [facility] 02-12-2021 COVID-19, mRNA, LNP- S, PF, 30mcg/0.3mL Dose Epifanio Kaufman MD Work Phone: [facility] 08-05-2020 influenza, injectabl e, quadrivalent, preservative free Jignesh Gonsalez MD Work Phone: [facility] 08-05-2020 pneumococcal polysaccharide vaccine, 23 valent Jignesh Gonsalez MD Work Phone: [facility] 09-03-2019 influenza, seasonal, injectable Jignesh Gonsalez MD Work Phone: [facility] 08-24-2019 influenza, injectabl e, quadrivalent, preservative free Jignesh Gonsalez MD Work Phone: [facility] Payers Date Payer Category Payer Self-pay [id number] 2023 Medicaid [id number] 2023 Medicaid [id number] 2022 Medicare [id number] 2021 Medicare [id number] 2021 Unknown [id number] 2021 Medicare [id number] 2020 Medicare [id number] 2019 Unknown [id number] 1959 Medicare [id number] 2. [id number] 1955 Unknown [id number] 2.16.8 40.1.030979.3.579.2.647 1955 Unknown [id number] 2.16.84 0.1.093019.3.579.2.593 1955 Unknown [id number] 2.16.84 0.1.247324.3.579.2.593 1955 Unknown [id number] 2.16.84 0.1.351382.3.579.2.593 1955 Unknown [id number] 2.16.84 0.1.961601.3.579.2.593 1955 Unknown [id number] 2.16.84 0.1.551334.3.579.2.593 - Unknown [id number] 2.16.84 0.1.621407.3.579.2.593 1955 Unknown [id number] 2.16.84 0.1.575960.3.579.2.593 1955 Unknown [id number] 2.16.8 40.1.329234.3.579.2.1286 1955 Unknown [id number] 2.16.8 40.1.915241.3.579.2.727 1955 Unknown [id number] 2.16.8 40.1.094427.3.579.2.727 1955 Unknown [id number] 2.16.84 0.1.174138.3.579.2.1259 1955 Unknown [id number] 2.16.84 0.1.824578.3.579.2.1259 1955 Unknown [id number] 2.16.84 0.1.068586.3.579.2.1259 1955 Unknown [id number] 2.16.84 0.1.665553.3.579.2.1259 1955 Unknown [id number] 2.16.84 0.1.378368.3.579.2.1259 1955 Unknown [id number] 2.16.84 0.1.335043.3.579.2.1259 1955 Unknown [id number] 2.16.84 0.1.562420.3.579.2.1259 1955 Unknown [id number] 2.16.84 0.1.737155.3.579.2.1259 1955 Unknown [id number] 2.16.84 0.1.507512.3.579.2.1259 1955 Unknown [id number] 2.16.84 0.1.926905.3.579.2.1259 1955 Unknown [id number] 2.16.84 0.1.662747.3.579.2.1259 1955 Unknown [id number] 2.16.84 0.1.700733.3.579.2.1259 1955 Unknown [id number] 2.16.84 0.1.614244.3.579.2.1259 Medicare [id number] Unknown [id number] 2.16.8 40.1.542457.3.579.2.531 Unknown [id number] 2.16.8 40.1.099803.3.579.2.531 Unknown [id number] 2.16.8 40.1.983854.3.579.2.531 Social History Date Type Detail Facility Start: 12-14-2023 End: 01-15-2025 Sex Assigned At [facility] Start: 1955 Sex Assigned At Male [facility] Tobacco smoking status No Smoking Status Entered [facility] Start: 04-23-2024 Tobacco smoking status [facility] Never smoked tobacco (finding) [facility] Start: 01-11-2024 End: 12-19-2024 Tobacco smoking status COIS Ex-smoker [facility] Start: 11-21-1971 End: 04-18-1997 History of tobacco use Current smoker [facility] Start: 11-21-1971 End: 04-18-1997 History of tobacco use Cigarette Smoker [facility] Start: 01-11-2024 End: 12-19-2024 Tobacco use and exposure Smokeless tobacco non-user [facility] Start: 05-21-2024 End: 01-21-2025 Alcoholic beverage intake Lifetime non-drinker (finding) [facility] Start: 12-14-2023 End: 01-15-2025 History of Social function [facility] Within [...] Healthcare Start: 08-16-2022 Alcohol intake Ex-drinker (finding) [facility] NEGATED: Highlighted rowStart: LLUVIAF History of tobacco use Passive smoker [facility] Clinical Notes 11-21-2020 to 01-22-2025 Jignesh Gonsalez MD - 01/21/2025 2:20 PM Vitor Gonsalez MD - 01/21/2025 2:20 PM Vitor Gonsalez MD - 01/21/2025 1:45 PM ESTHilajg Pérez MD - 12/19/2024 1:40 PM EST Note Date & Type Note Facility 01-22-2025 Note [facility] Cardiology Clinic Note Chief Complaint: Patient here for follow up [facility]. Underwent heart cath on 01/11/[address] Lyons. Only taking potassium about every other day, or as needed he says. Has palpitations a lot, and MICHAUD is mostly with activity. HPI: Nazario Cortes Jr. is a 69 y.o. male history of coronary artery disease, hypertension, COPD here after a recent cardiac cath He has had no further chest pain His blood pressure has been markedly improved He does have residual shortness of breath for which his primary care physician is going to start him on inhalers. He used to smoke, he quit years ago. Cardiology ROS: Review of Systems Cardiovascular: Positive for dyspnea on exertion, irregular heartbeat, leg swelling and palpitations. Respiratory: Positive for cough, shortness of breath ( sometimes at rest ), sputum production and wheezing. Musculoskeletal: Positive for muscle weakness. All other systems reviewed and are negative. Past Medical History He has a past medical history of Bladder cancer (CMS/HCC), Cholelithiasis, Colon polyp, Depression, Dyslipidemia, Hearing loss, Left foot drop, Peripheral neuropathy, Seizure disorder (CMS/HCC), and TIA (transient ischemic attack). Surgical History He has a past surgical history that includes CTA Neck W IV Contrast (11/20/2020); CTA Head W IV Contrast (11/20/2020); Cholecystectomy; Chest wall biopsy; Shoulder surgery; Lymph node dissection; Foot surgery; Cataract extraction, bilateral; Anterior cervical discectomy w/ fusion; Posterior cervical laminectomy; Colonoscopy; Cardiac catheterization; and Carpal tunnel release (Bilateral). Social History He reports that he quit smoking about 27 years ago. His smoking use included cigarettes. He has never used smokeless tobacco. He reports that he does not currently use alcohol. He reports that he does not use drugs. Family History Family History Problem Relation Name Age of Onset Supraventricular tachycardia Mother Stroke Father Kidney cancer Sister Diabetes Sister COPD Brother Allergies Oxycodone and Gabapentin Medications Current Outpatient Medications: aspirin 81 mg EC tablet, Take 1 tablet by mouth in the morning., Disp: , Rfl: atorvastatin (Lipitor) 10 mg tablet, Take 10 mg by mouth at bedtime., Disp: , Rfl: citalopram (CeleXA) 40 mg tablet, , Disp: , Rfl: furosemide (Lasix) 40 mg tablet, Take 40 mg by mouth if needed each day., Disp: , Rfl: HYDROcodone-acetaminophen ([place]) 5-325 mg tablet, take 1 tablet by mouth four times a day if needed for severe pain for up to 7 days, Disp: , Rfl: isosorbide mononitrate ER (Imdur) 30 mg 24 hr tablet, Take 1 tablet (30 mg) by mouth in the morning for 120 doses. Do not crush or chew., Disp: 30 tablet, Rfl: 3 losartan (Cozaar) 25 mg tablet, Take 1 tablet (25 mg) by mouth in the morning for 120 doses., Disp: 30 tablet, Rfl: 3 meclizine (Antivert) 25 mg tablet, take 1 tablet by mouth four times a day if needed for dizziness, Disp: , Rfl: methocarbamol (Robaxin) 750 mg tablet, take 1 tablet by mouth four times a day if needed for muscle spasm, Disp: , Rfl: metoprolol succinate XL (Toprol-XL) 25 mg 24 hr tablet, Take 1 tablet (25 mg) by mouth in the morning. Do not crush or chew., Disp: 30 tablet, Rfl: 0 kamcvkzgfojh-pimp-wumytjlf-foli c acid (Multivitamin 50 Plus) tablet, 1 (one) time each day at the same time., Disp: , Rfl: nitroglycerin (Nitrostat) 0.3 mg SL tablet, Place 0.3 mg under the tongue., Disp: , Rfl: PHENobarbitaL (Luminal) 32.4 mg tablet, Take 64.8 mg by mouth in the morning, afternoon, and at bedtime., Disp: , Rfl: phenytoin ER (Dilantin) 100 mg capsule, take 2 capsules by mouth three times a day, Disp: , Rfl: potassium chloride CR (K-Tab) 20 mEq ER tablet, Take 20 mEq by mouth if needed each day., Disp: , Rfl: Last Recorded Vitals BP 106/62 (BP Location: Left arm, Patient Position: Sitting) Pulse 71 Ht 1.854 m (6' 1 ) Wt (!) 141 kg (310 lb) SpO2 92% BMI 40.90 kg/m??? Physical Examination: GENERAL: alert and oriented x3, well developed, in no acute distress. HEAD: atraumatic, normocephalic. EYES: COLIN, EOMI. NECK: trachea midline, no JVD present, no carotid bruits present. CARDIAC: S1, S2 present. RRR. No murmur, rubs, or gallops. RESPIRATORY: CTAB, no increased effort of breathing, no rales, rhonchi, or wheezing. ABDOMEN: soft, nontender, nondistended. EXTREMITIES: no lower extremity edema, peripheral pulses are 2+ bilaterally. No rash/skin discoloration present. NEURO: strength/sensation equal and symmetric in bilateral upper and lower extremities. PSYCH: appropriate mood, affect, and judgement. INVESTIGATIONS: Echocardiogram-[facility] Name: NAZARIO CORTES Study Date: 01/11/2025 10:06 AM B/P: 142 mmHg/84 mmHg HR: Date of : 1955 Location: [facility] Height: 74 in. Age: 69 year(s) Patient Room : 3140 Weight: (more content not included)... [facility] 01-21-2025 History of Presen t illness Narrative Associated Problem(s): SOB (shortness of breath) on exertion Signs of COPD and check PFTs. Start albuterol PRN. Associated Problem(s): Coronary artery disease involving [place] coronary artery of [place] heart without angina pectoris (CMS/HCC) Symptoms improved with medication change and follow with cardiology. Images from the original note were not included. Subjective Patient ID: Nathan Cortes is a 69 y.o. male who presents for Follow-up (Hospital f/up [place]). Hospital follow up from 01/09-01/13 for unstable angina. Developed chest pain and to ER. CE normal and echo normal. Continued to have pain and seen by cardiology. Concerned of unstable angina and transferred to [facility] 01/10. Heart cath performed and showed 3 vessel CAD but no intervention performed. Added imdur, losartan, and metoprolol. Doing well since home. No further pain. Concerned of COPD. Chest x-ray showed changes of COPD. C/o SOB with exertion and at times hard to stay active. Frequent cough and sputum worse in am. Smoked 3 PPD for 20 plus years but quit in 1996. Never had PFTs. Review of Systems Constitutional: Negative for fatigue. [...] Assessment/Plan Problem List Items Addressed This Visit Coronary artery disease involving [place] coronary artery of [place] heart without angina pectoris (CMS/HCC) - Primary Symptoms improved with medication change and follow with cardiology. SOB (shortness of breath) on exertion Signs of COPD and check PFTs. Start albuterol PRN. Relevant Medications albuterol HFA 90 mcg/act inhaler Other Relevant Orders Pulmonary Function Test documented in this encounter [facility] 01-13-2025 Note Sent the AVS to [facility] Dianna prather [facility] 01-13-2025 Note Physical Therapy Physical Therapy Evaluation Patient Name: Nazario Cortes Jr. : 1955 Today's Date: 01/13/2025 Discharge Recommendation: home with home PT Start Time: 940 Stop Time: 957 Time Calculation (min): 17 min PT Evaluation Time Entry PT Evaluation (Low) Time Entry: 17 General Subjective: Mr. Nazario Hays Jr. is supine in bed upon PT entry into room and is agreeable to therapy as well as RN being agreeable to PT mobilization. Pt reports that he has numbness from B knees down to toes due to chemotherapy he received. He has reports of falls and states he usually will expereince posterior LOB with falling. He states I have problems because I'm weak. Patient Summary: Pt is a 69 year old male present as transfer from [facility] for chest pain. On 01/11/25, pt underwent cardiac cath which revealed 40-50% stenosis of L anterior descending coronary artery and L circumflex coronary artery and 30-40% stenosis of R coronary artery. PT Diagnosis: Unsteadiness on feet, reduced mobility Patient Active Problem List Diagnosis Arthritis of right hip Coronary arteriosclerosis Degenerative lumbar spinal stenosis Deviated nasal septum Dyslipidemia Dyspnea on exertion Encounter for long-term current use of medication Extragonadal germinoma (CMS/HCC) History of colonic polyps History of falling Hx of malignant neoplasm Hyperlipidemia Internal derangement of right knee Lumbar degenerative disc disease Major depressive disorder, recurrent episode, mild Malignant neoplasm of urinary bladder (CMS/HCC) Neuropathy due to chemotherapeutic drug Obesity Seizure disorder (CMS/HCC) Bilateral leg edema Chest pain due to CAD Chronic depression Dupuytren contracture Gall bladder disease Impacted cerumen of both ears Arthritis Inflammation of both sacroiliac joints Left elbow pain Lumbar spondylosis KAROL (obstructive sleep apnea) Polyneuropathy due to other toxic agents Rheumatic fever Transient ischemic attack (TIA) Unstable angina (CMS/HCC) Past Medical History: Diagnosis Date Bladder cancer (CMS/HCC) around 1997 Cholelithiasis Colon polyp Depression Dyslipidemia [...] POSTERIOR CERVICAL LAMINECTOMY PCDF C3-C5 SHOULDER SURGERY Precautions Precautions Medical Precautions: fall risk, telemetry Pain Pain Assessment Pain Assessment: (Pt reports chronic low back pain, but does not rate) Cognition Cognition Overall Cognitive Status: Within Functional Limits Orientation Level: Oriented X4 General Assessment General Assessment Hearing: WNL Home Living Home Living Type of Home: Apartment (on 3rd floor with elevator access) Lives With: Spouse Home Adaptive Equipment: Rollator, Wheelchair-power Home Layout: Laundry main level Home Access: Elevator, Level entry Bathroom Shower/Tub: Walk-in shower Bathroom Toilet: Standard Bathroom Equipment: Grab bars in shower, Shower chair with back, Grab bars around toilet Prior Level of Function Prior Function Level of [place]: Independent with ADLs and functional transfers, Independent with homemaking with ambulation Prior Functional Mobility: Independent with rollator, Independent with wheelchair (Pt will use PWC for extended distances) History of Falls: Pt reports approximately 10 falls within the past 6 months. Receives Help From: Family ADL Assistance: Independent Homemaking Assistance: Independent ( shares chores. He will use his PWC to carry the laundry to the main floor to do.) Vocational: Retired Prior Function Comments: Pt reports he has an AFO for his RLE that he normally wears due to foot drop. Vision Basic Assessment Vision - Basic Assessment Current Vision: Wears glasses all the time General Assessments Sensation Light Touch: Severe deficits in the RLE, Severe deficits in the LLE (Lack of sensation from knees down) Coordination Movements are Fluid and Coordinated: Yes Postural Control Posture Assessment: forward flexed posturing, rounded shoulders Postural Control: Within Functional Limits Functional Assessments Bed Mobility Bed Mobility: Yes Bed Mobility 1 Bed Mobility From 1: Supine Bed Mobility Type 1: To Bed Mobility to 1: Short sit Level of Assistance 1: Independent Bed Mobilit (more content not included)... [facility] 01-13-2025 Note [facility] are has accepted. [facility] 01-13-2025 Note Hospital Medicine Discharge Summary Final Discharge Diagnosis: Unstable angina KAROL History of seizures Hyperlipidemia Falls at home Obese class 2 - BMI 40 Admission Diagnosis: Unstable angina (CMS/HCC) [I20.0] Hospital course: Nazario Cortes is an 69 y.o. male who came from [facility] with Angina pectoris unstable. Patient is a 69-year-old male with the following past medical history CAD, HLD, depression, history of seizures, obstructive sleep apnea, obesity, history of bladder cancer diagnosed 2018 with tumor removal. Patient was transferred from [facility] where he has been admitted on being managed for chest pain. He was seen by cardiology and after consultation patient was transferred to [facility] for cardiac catheterization tomorrow. He states that his chest pain is still ongoing and he has taken some nitroglycerin. Patient did undergo a cardiac cath on 01/11 please see below for results. He was started on toprol, cozaar and imdur. HE has tolerated the medications and will need follow up with cardiology. He has been having frequent falls at home. PT/OT consulted. WE will arrange home health through [facility]. Surgical, Invasive or Diagnostic Procedures Done During Admission: Cardiac Cath Cardiovascular Laboratory Report FINAL IMPRESSIONS: Moderate, heavily calcified three-vessel coronary artery disease Normal global left ventricular systolic function by an noninvasive imaging Moderate to severe systemic hypertension RECOMMENDATIONS: Aggressive cardiovascular risk factor modification Optimal medical therapy for coronary artery disease should include aspirin, moderate to high intensity statin therapy, beta-daisy plus or minus a RAAS inhibitor Consider noncardiac etiologies for his chest pain namely musculoskeletal, gastrointestinal, and/or pulmonary Further recommendations deferred to the inpatient services PROCEDURES: Ultrasound-guided access to the left radial artery, bilateral selective coronary angiography via a left radial approach METHODS: After risks, benefits, and alternatives were explained, written informed consent was obtained. The patient was prepped and draped in usual sterile fashion over the left wrist. Local infiltration anesthesia was achieved of the left wrist. Using a micropuncture kit, access to the left radial artery was obtained. A 6 Italian glide sheath was inserted without difficulty. Bilateral selective coronary angiography was performed using JR 4.0 and JL 4.0 catheters. After reviewing the images, it was elected to conclude the procedure. The catheters were removed. The radial sheath was removed with application of a TR band per protocol to achieve optimal hemostasis. FINDINGS: Hemodynamics: AO158/87 [106] LEFT VENTRICULOGRAPHY: This was not performed. Ejection fraction is normal by echocardiogram. CORONARY ARTERIES: Left main coronary artery: This arises from the left coronary cusp and bifurcates into the left anterior descending and left circumflex coronary arteries it is free of significant stenoses. Left anterior descending coronary artery: This shows a mid vessel 40 to 50% stenosis with heavy calcification. There is ectasia prior to the stenosis. The remainder of the vessel and its branches show luminal irregularities. It is a long wraparound vessel supplying the inferoapex. Left circumflex coronary artery: This gives rise to a small first obtuse marginal branch and a moderate size branching second obtuse marginal before continuing as a small caliber AV groove branch. There is a prominent recurrent atrial branch. The mid circumflex between the 2 obtuse marginal shows a discrete 40% calcific stenosis. There are luminal irregularities throughout the remainder of the vessel. The ostium of the second obtuse marginal shows a 40 to 50% stenosis. Right coronary artery: This is a dominant vessel arising from the right coronary cusp and giving rise to the posterior descending and posterolateral branches. It shows calcific plaque throughout. There is a 30 to 40% stenosis at the first bend in the vessel. The ostium of the posterior descending artery shows a 50% stenosis. INDICATIONS: Unstable angina Consultations During Admission: Cardiology Dear Dr. Wallace MD, Nazario is advised to follow up with you within 1-2 weeks. Items to follow up in ambulatory setting: None Follow-up with: Cardiology Scheduled appointments: No future appointments. Your medication list START taking these medications Instructions Last Dose Given Next Dose Due isosorbide mononitrate ER 30 mg 24 hr tablet Commonly known as: Imdur Take 1 tablet (30 mg) by mouth in the morning for 120 doses. Do not crush or chew. losartan 25 mg tablet Commonly known as: Cozaar Take 1 tablet (25 mg) by mouth in the morning for 120 doses. metoprolol succinate XL 50 mg 24 hr tablet Commonly known as: Toprol-XL Take 1 (more content not included)... [facility] 01-12-2025 Note Attestation signed by Jony Webber MD at 01/12/2025 8:15 PM I personally saw and examined the patient on the same date of service as resident/fellow Dr Fernandes. I discussed the findings and therapeutic plan with the resident/fellow Dr Fernandes. I agree with the documentation, except for any edits/updates below. Teaching Physician's Revisions: None Continues to have brief sharp pain which is short lasting for couple minutes only and not related to exertion. I doubt to be cardiac in origin but could be due to uncontrolled hypertension therefore will maximize antianginal treatment by increasing Toprol-XL to 50 mg daily and adding Imdur. Continue other medications including aspirin, Lipitor 40 mg daily, Cozaar 25 mg daily and Lasix 40 mg daily. Patient is stable to be discharged home. I asked him to check his blood pressure daily and bring the blood pressure log with him to the follow-up visit Jony Webber MD, [facility] Cardiology Progress Note Subjective Subjective: Patient was seen and examined at bedside this morning. No acute overnight events. He reports intermittent chest pain which has improved as compared to initial presentation however not completely resolved. Rates 11/30, was 06/30. He is requiring supplemental oxygen today. He reports shortness of breath with ambulation for a while. He is not on oxygen at home. Objective: Patient Vitals for the past 24 hrs: BP Temp Temp src Pulse Resp SpO2 01/12/25 1121 124/70 36.6 ???C (97.9 ???F) Temporal 71 21 95 % 01/12/25 0800 129/74 36.4 ???C (97.6 ???F) Temporal 67 19 93 % 01/12/25 0009 117/59 -- -- 76 21 93 % 01/11/25 2000 141/81 -- -- 69 23 (!) 89 % 01/11/25 1900 126/70 -- -- 74 21 -- 01/11/25 1800 128/73 -- -- 73 15 91 % 01/11/25 1730 126/74 -- -- 76 22 90 % 01/11/25 1700 135/68 -- -- 75 26 91 % 01/11/25 1630 152/77 -- -- 83 26 93 % 01/11/25 1615 (!) 156/104 -- -- 75 17 94 % 01/11/25 1600 (!) 149/104 -- -- 74 21 91 % 01/11/25 1545 (!) 149/91 -- -- 69 18 92 % 01/11/25 1530 164/84 -- -- 68 20 97 % 01/11/25 1515 (!) 157/95 -- -- 65 18 94 % 01/11/25 1500 (!) 147/91 -- -- 67 21 93 % 01/11/25 1445 146/89 -- -- 69 16 91 % 01/11/25 1430 155/87 -- -- 67 18 92 % 01/11/25 1415 (!) 144/96 -- -- 76 17 92 % 01/11/25 1400 151/86 -- -- 69 10 96 % 01/11/25 1356 (!) 153/101 -- -- 68 -- (!) 89 % 01/11/25 1340 162/85 -- -- 74 18 95 % 01/11/25 1257 -- -- -- -- -- 93 % 01/11/25 1256 138/84 -- -- 74 20 93 % Physical Examination: GENERAL: AOx3, in no acute distress. HEAD: Atraumatic, normocephalic. EYES: COLIN, EOMI. NECK: No JVD present. CARDIAC: RRR. No murmur, rubs, or gallops. RESPIRATORY: CTAB, no increased effort of breathing. ABDOMEN: Soft, nontender, nondistended. EXTREMITIES: No lower extremity edema, peripheral pulses are 2+ bilaterally. NEURO: No focal deficits Relevant Lab Results Encounter Date: 01/11/25 ECG 12 lead Result Value Ventricular Rate 70 Atrial Rate 70 WI Interval 210 QRS DURATION 78 QT Interval 410 QTC CALCULATION(BAZETT) 442 P [place] 35 R-[place] -9 T Wave [place] 36 Impression Sinus rhythm with 1st degree A-V block Otherwise normal ECG When compared with ECG of 20-NOV-2020 10:48, WI interval has increased Confirmed by Thomas YOUNGER, MILAGROS Garcia ([id number]) on 01/11/2025 1:02:38 PM Lab Results Component Value Date TROPONINI 0.01 01/11/2025 Transthoracic echo (TTE) complete Result Date: 01/11/2025 1 1 [facility] Heart [facility] [address] [place] [address] [phone] (fax) Echocardiogram-[facility] Name: NAZARIO CORTES Study Date: 01/11/2025 10:06 AM B/P: 142 mmHg/84 mmHg HR: Date of : 1955 Location: [facility] Height: 74 in. Age: 69 year(s) Patient Room: 3140 Weight: 306 lb. Gender: Male Patient Status: InPt BSA: 2.6 m2 Indication: Unstable angina pectoris Examination: Echocardiogram (Complete), Lumason Contrast Image Quality: Technically Difficult study Patient Consent: Procedure explained to patient Conclusions Left Ventricle: The left ventricle is normal size. Global left ventricular systolic function is normal. The EF is 65 % visually. Left ventricular wall thickness is normal. No regional wall motion abnormality. Unable to assess diastolic dysfunction. Concentric cardiac remodeling. Right Ventricle: The right ventricle appears normal in size. Normal right ventricular systolic function. Unable to assess right sided pressures due to lack of measurable tricuspid regurgitation. Left Atrium: The left atrium is normal in size. Overall Conclusions: Due to suboptimal imaging Lumason contrast was administered for opacification and better delineation of endocardial borders. Measurements Left Ventricle Label Value Normal Value LVOT PGmax 3 mmHg L (more content not included)... [facility] 01-12-2025 Note Hospital Medicine Daily Progress Note - 01/12/2025 11:29 AM; Room: [facility] Admission: 01/11/2025 12:29 AM; Length of stay: 1 days THE HOSPITALIST TEAM PREFERS TO USE This Week In FOR NON-URGENT COMMUNICATION 7AM-7PM. IF I DO NOT RESPOND WITHIN 20 MINUTES OR URGENT MATTERS, PLEASE CALL THROUGH THE RABBET OPERATOR. FROM 7PM-7AM, PLEASE PAGE [phone](COVR). Code Status: Full Code Barriers to Discharge: chest pain Expected Discharge Date: tomorrow? Discharge Destination: home Overview Nazario Cortes is an 69 y.o. male who came from [facility] with Angina pectoris unstable. Patient is a 69-year-old male with the following past medical history CAD, HLD, depression, history of seizures, obstructive sleep apnea, obesity, history of bladder cancer diagnosed 2018 with tumor removal. Patient was transferred from [facility] where he has been admitted on being managed for chest pain. He was seen by cardiology and after consultation patient was transferred to [facility] for cardiac catheterization tomorrow. He states that his chest pain is still ongoing and he has taken some nitroglycerin. Patient did undergo a cardiac cath on 01/11 Subjective Currently in bed RN at bedside Reports he does have a headache Still has some right side chest pain Reports he is getting up to the bathroom himself Physical Exam Visit Vitals BP 129/74 (BP Location: Left arm, Patient Position: Lying) Pulse 67 Temp 36.4 ???C (97.6 ???F) (Temporal) Resp 19 Intake/Output Summary (Last 24 hours) at 01/12/2025 1129 Last data filed at 01/12/2025 0930 Gross per 24 hour Intake 1483.19 ml Output 410 ml Net 1073.19 ml Physical Exam Constitutional: Appearance: Normal appearance. He is obese. HENT: Mouth/Throat: Mouth: Mucous membranes are moist. Eyes: Extraocular Movements: Extraocular movements intact. Pupils: Pupils are equal, round, and reactive to light. Cardiovascular: Rate and Rhythm: Normal rate and regular rhythm. Pulmonary: Effort: Pulmonary effort is normal. Breath sounds: Normal breath sounds. Abdominal: General: Abdomen is flat. Palpations: Abdomen is soft. Musculoskeletal: General: Normal range of motion. Skin: General: Skin is warm. Neurological: General: No focal deficit present. Mental Status: He is alert and oriented to person, place, and time. Psychiatric: Mood and Affect: Mood normal. Estimated body mass index is 40.4 kg/m??? as calculated from the following: Height as of this encounter: 1.854 m (6' 1 ). Weight as of this encounter: 139 kg (306 lb 3.2 oz). Active Inpatient Problems Principal Problem: Unstable angina (CMS/HCC) Active Problems: Coronary arteriosclerosis Dyslipidemia Malignant neoplasm of urinary bladder (CMS/HCC) Seizure disorder (CMS/HCC) Lumbar spondylosis Assessment and Plan Unstable angina - Cath on 01/11/2025 revealed moderate, heavily calcified three-vessel coronary artery disease, normal global left ventricular systolic function, and moderate to severe systemic hypertension -cont ASA, lipitor, losartan, toprol - imdur added today KAROL - CPAP History of seizures - cont phenobarbital, dilantin Hyperlipidemia -cont lipitor Falls at home - PT/OT ordered Obese class 2 - BMI 40 VTE Prophylaxis: Heparin subcutaneous Scheduled Meds aspirin, 81 mg, oral, q AM atorvastatin, 40 mg, oral, Nightly citalopram, 40 mg, oral, Daily furosemide, 40 mg, oral, Daily isosorbide mononitrate ER, 30 mg, oral, Daily losartan, 25 mg, oral, Daily metoprolol succinate XL, 25 mg, oral, Daily PHENobarbital, 64.8 mg, oral, TID phenytoin ER, 200 mg, oral, TID Pertinent Investigations Hematology: Results from last 7 days Lab Units 01/12/25 0331 01/11/25 1155 01/11/25 0323 WBC AUTO 10*3/uL 8.31 -- 8.63 HEMOGLOBIN g/dL 13.4 -- 13.0 HEMATOCRIT % 41.0 -- 39.8 MCV fL 100.2* -- 102.1* PLATELETS AUTO 10*3/uL 197 177 187 Chemistry: Results from last 7 days Lab Units 01/12/25 0331 01/11/25 0323 SODIUM mmol/L 133* 134* POTASSIUM mmol/L 4.2 4.1 CHLORIDE mmol/L 101 103 CO2 mmol/L 26 26 BUN mg/dL 20 18 CREATININE mg/dL 0.79 0.81 GLUCOSE mg/dL 114* 105* MAGNESIUM mg/dL 1.9 -- CALCIUM mg/dL 8.4* 8.3* Results from last 7 days Lab Units 01/12/25 0331 AST U/L 25 ALT U/L 20 ALK PHOS U/L 152* BILIRUBIN TOTAL mg/dL 0.5 BILIRUBIN DIRECT mg/dL 0.1 Historical Values: (Includes values prior to this admission) Lab Results Component Value Date HDL 43 01/12/2025 LDL 97 01/12/2025 No results found for: [id number] , IRON , TIBC , C3 , C4 , BRI , CANCA , ASO , PSA , CEA , CA125 , CA199 , AFP , CA153 Imaging XR chest 1 view Narrative: XR CHEST 1 VIEW 01/12/2025 10:20 AM CLINICAL INDICATIONS: Shortness of breath. COMPARISON: 11/20/2020 FINDINGS: Interval surgical clips in the right perihilar region stable. Hardware in the cervical spine. Fibrosis and sc (more content not included)... [facility] 01-11-2025 Note communication receiv ed that Patient is reporting having multiple falls at home and is reporting spouse has a nurse Enedelia from [facility], so would like [facility] if needing [facility] services. Preliminary referral sent to [facility], via [employer] system. [facility] 01-11-2025 Note 01/11/25 3505 Admission Assessment Questions Verify insurance with patient Yes Do you understand medical disease or what brought you into the hospital? Yes Who is your current PCP? Jignesh Gonsalez MD Can I schedule a follow up appointment for you at the time of discharge? Yes (Afternoons) Do you understand why you are taking your current medications? Yes Are you taking your medications as prescribed? Yes Did patient provide teach back? No Pharmacy Bedside Delivery Status Interested Does the patient have a manager case management assigned to them through their insurance? No Living Arrangement (Current/Prior to Hospitalization) Private residence (lives at home with ) Does the patient have history of HHC or SNF? Yes (hx of HHC not active, when patient use to live in [place], patient stated his kadi has [facility] (nurses name is enedelia)) Assistive Device Other (Comment);Wheelchair;Grab bars (rollator, power chair, transport chair, lift chair, CPAP. Shower chair) Patient's goal for discharge home Was patient reminded that goal for discharge is 11am? Yes Does the patient have transportation at discharge? Yes Type of Residence Private residence Is PT/OT appropriate? Yes (patient stated he has been falling at least once or twice a month at home.) Is PT/OT ordered? No (will reach out to provider) Is SW consult appropriate? No (pending clinical course) Is SW consult ordered? No Do you understand the benefits of MyChart? Yes Were you able to send link and activate [employer]? Acc[employer] already active [facility] 01-11-2025 Note -Patient pain contro l. -Patient's hydrocodone 5/325 as needed -Continue other home medications per reconciliation Maintain DVT prophylaxis DVT protocols GI protection Protonix Monitor labs and correct abnormalities Discussed the plan of care with patient's nurse and with the patient himself and he is in agreement. [facility] 01-11-2025 Note -Continue statins. [facility] 01-11-2025 Note -Treat with statins -Manage also with nitrates -Aspirin -Consult cardiology and prep for heart cath later on today. [facility] 01-11-2025 Note -Seizures currently stable resume and reconcile home anticonvulsants [facility] 01-11-2025 Note -Chronic problem we will continue to monitor [facility] 01-11-2025 Note -Use nitroglycerin a nd nitrates -N.p.o. after midnight -Will need to proceed to have cath tomorrow -Consult cardiology. [facility] 01-11-2025 Note Hospital Medicine History and Physical 01/11/2025 1:38 AM THE HOSPITALIST TEAM PREFERS TO USE This Week In FOR NON-URGENT COMMUNICATION 7AM-7PM. IF I DO NOT RESPOND WITHIN 20 MINUTES OR URGENT MATTERS, PLEASE CALL THROUGH THE RABBET OPERATOR. FROM 7PM-7AM, PLEASE PAGE [phone](COVR). Chief Complaint No chief complaint on file. History of Present Illness Nazario Cortes is an 69 y.o. male who came from [facility] with Angina pectoris unstable. Patient is a 69-year-old male with the following past medical history CAD, HLD, depression, history of seizures, obstructive sleep apnea, obesity, history of bladder cancer diagnosed 2018 with tumor removal. Patient was transferred from [facility] where he has been admitted on being managed for chest pain. He was seen by cardiology and after consultation patient was transferred to [facility] for cardiac catheterization tomorrow. He states that his chest pain is still ongoing and he has taken some nitroglycerin. When I saw the patient he was lying in the room sleeping and was woken up without difficulty. He has a blood pressure of 135/76, pulse rate was 75 respiratory rate was 14 and the temperature was normal pulse oximetry was in the mid 90s. Patient was awake and alert and gave the history as above. No current laboratory findings are available here at [facility]. Review of System and Physical Exam Temp: [36.9 ???C (98.4 ???F)] 36.9 ???C (98.4 ???F) Heart Rate: [73] 73 Resp: [21] 21 BP: (135)/(76) 135/76 Physical Exam HENT: Head: Normocephalic and atraumatic. Nose: Nose normal. Mouth/Throat: Mouth: Mucous membranes are moist. Pharynx: Oropharynx is clear. Eyes: Extraocular Movements: Extraocular movements intact. Pupils: Pupils are equal, round, and reactive to light. Cardiovascular: Rate and Rhythm: Normal rate and regular rhythm. Pulmonary: Effort: Pulmonary effort is normal. Breath sounds: Normal breath sounds. Abdominal: General: Abdomen is flat. Palpations: Abdomen is soft. There is no mass. Tenderness: There is no abdominal tenderness. There is no guarding or rebound. Musculoskeletal: General: Normal range of motion. Cervical back: Normal range of motion and neck supple. Skin: General: Skin is warm. Neurological: General: No focal deficit present. Mental Status: He is alert and oriented to person, place, and time. Mental status is at baseline. Psychiatric: Mood and Affect: Mood normal. Behavior: Behavior normal. Review of Systems Constitutional: Positive for fatigue. HENT: Negative. Eyes: Negative. Respiratory: Negative. Cardiovascular: Positive for chest pain and palpitations. Gastrointestinal: Negative. Endocrine: Negative. Genitourinary: Negative. Musculoskeletal: Negative. Skin: Negative. Neurological: Negative. Hematological: Negative. Psychiatric/Behavioral: Negative. Assessment and Plan 69-year-old gentleman history of CAD, HLD, depression, seizure disorder, obstructive sleep apnea comes seen on transfer from [facility] with unstable angina. Patient is being prepped for cardiac catheterization tomorrow by cardiology. Assessment & Plan Unstable angina ([facility]) -Use nitroglycerin and nitrates -N.p.o. after midnight -Will need to proceed to have cath tomorrow -Consult cardiology. Coronary arteriosclerosis -Treat with statins -Manage also with nitrates -Aspirin -Consult cardiology and prep for heart cath later on today. Dyslipidemia -Continue statins. Malignant neoplasm of urinary bladder ([facility]) -Chronic problem we will continue to monitor Seizure disorder ([facility]) -Seizures currently stable resume and reconcile home anticonvulsants Lumbar spondylosis -Patient pain control. -Patient's hydrocodone 5/325 as needed -Continue other home medications per reconciliation Maintain DVT prophylaxis DVT protocols GI protection Protonix Monitor labs and correct abnormalities Discussed the plan of care with patient's nurse and with the patient himself and he is in agreement. VTE Prophylaxis: Heparin subcutaneous ----- Focus of this inpatient stay will remain on problems that need acute care setting for care. We will review available studies and will order additional labs, imaging and other studies as appropriate. As needed medicines are ordered as appropriate. VTE Prophylaxis will be ordered as appropriate. Please see above for management plan for individual hospital problems. Home medications are reviewed and will be continued as appropriate. Patient will be continued to be followed during this hospital stay by a member of Health system Medicine. Past Medical History Past Medical History: Diagnosis Date Bladder cancer ([facility]) around 1997 Cholelithiasis Colon polyp Depression Dyslipidemia Hearing loss Left foot drop Peripheral neuropathy Seizure disorder (CMS/HCC) TIA (transient ischemic (more content not included)... [facility] 12-19-2024 History of Presen t illness Narrative [...] of urinary bladder (CMS/HCC) 10/26/2023 Seizure disorder (CMS/HCC) 10/26/2023 Coronary arteriosclerosis ([facility]) 07/21/2020 Class 3 severe obesity due to excess calories with serious comorbidity and body mass index (BMI) of 40.0 to 44.9 in adult (CMS/HCC) 01/12/2021 Encounter for long-term current use of medication 11/29/2023 Screening PSA (prostate specific antigen) 11/29/2023 Chest pain due to CAD (CMS/HCC) 01/11/2024 KAROL (obstructive sleep apnea) 02/21/2024 Bilateral [...] Diagnosis Date Cataracts, bilateral 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CMS/HCC) Dizziness 1997 DNS (deviated nasal septum) Fracture of nasal bones 2023 History of malignant germ cell neoplasm of mediastinum HL (hearing loss) 1997 Malignant neoplasm of urinary bladder, unspecified site (CMS/HCC) Obesity 1997 Right foot pain Seizures (CMS/HCC) Sleep apnea 1998 Stroke ([facility]) 2009 Syncope, unspecified syncope type Tinnitus 1997 Past Surgical History: Procedure Laterality Date BIOPSY Right 1997 chest CATARACT EXTRACTION Bilateral CHOLECYSTECTOMY CT ANGIO HEAD 11/20/[address] ANGIOGRAM NECK 11/20/2020 CT ANGIOGRAM NECK FOOT SURGERY Right 2014 x2 Achilles tendon SHOULDER SURGERY Left 1985 TUMOR EXCISION Allergies Allergen Reactions Oxycodone Angioedema [...] on the RT. documented in this encounter [facility] 11-27-2024 History of Presen t illness Narrative [...] Ashley Rea DO documented in this encounter [facility] 11-22-2024 History of Presen t illness Narrative Associated Problem(s): Malignant neoplasm of urinary bladder (CMS/HCC) Follow up with urology. Associated Problem(s): Seizure disorder (CMS/HCC) Continue medication. Associated Problem(s): Major depressive disorder, recurrent episode, mild (HCC) ([facility]) Symptoms stable and continue celexa. Associated Problem(s): Class 3 severe obesity due to excess calories with serious comorbidity and body mass index (BMI) of 40.0 to 44.9 in adult ([facility]) Weight loss indicated. Associated Problem(s): Medicare annual [...] 44.9 in adult (CMS/HCC) Weight loss indicated. Relevant Orders TSH Encounter [...] not to smoke. documented in this encounter [facility] 11-06-2024 Telephone encounter Note Spoke to Janet, Chart was audited from 05/20/23 and needed my signature on the document.. added and faxed to [facility]. [facility] Work Phone: 11-06-2024 Miscellaneous Notes Spoke to Janet, Chart was audited from 05/20/23 and needed my signature on the document.. added and faxed to [employer]. Her name is Janet that called not Neetu. Neetu from [facility] called and left vm that she needs a return call. She stated she has called a few times and has not received a call back regarding this patient. I tried to call back and it just kept ringing. Please call her back at [phone]. documented in this encounter [facility] 11-06-2024 Telephone encounter Note Her name is Janet that called not Neetu. [facility] 11-06-2024 Telephone encounter Note Neetu from [facility] called and left vm that she needs a return call. She stated she has called a few times and has not received a call back regarding this patient. I tried to call back and it just kept ringing. Please call her back at [phone]. [facility] 10-30-2024 History of Presen t illness Narrative Pt picked up supplies documented in this encounter [facility] 10-25-2024 History of Presen t illness Narrative [...] spasms. Continue PT exercises. Relevant Medications HYDROcodone-acetaminophen ([place]) 5-325 MG tablet Chronic rhinosinusitis Continued congestion [...] to General Surgery documented in this encounter [facility] 08-08-2024 Note SUBJECTIVE: Chief complaint: Back pain. [...] about 6 or 7 years ago, in [facility] and had injections, which he states he has made his symptoms worse. Not interested in pursuing additional injections. Has had patient care provider many years ago for previous symptoms of [...] Past Medical History: Diagnosis Date Bladder cancer (CMS/HCC) around 1997 Cholelithiasis Colon polyp Depression Dyslipidemia [...] needed each day., Disp: , Rfl: HYDROcodone-acetaminophen ([place]) 5-325 mg tablet, take 1 tablet by mouth four times a day if needed for severe pain for up to 7 days, Disp: , Rfl: meclizine (Antivert) 25 mg tablet, take 1 tablet by mouth four times a day if needed for dizziness, (more content not included)... [facility] 12-21-2023 Miscellaneous Notes Received faxed referral for patient to be seen for Lumbar. Called and spoke to patient, stated he has an appointment set up already at [facility] office. documented in this encounter [facility] 12-21-2023 Telephone encounter Note Received faxed referral for patient to be seen for Lumbar. Called and spoke to patient, stated he has an appointment set up already at [facility] office. [facility] 07-05-2023 Evaluation note Encounter Date Diagnosis Assessment [...] fusion of cervical spine (ICD-10 - Z98.1) [facility] 06-09-2023 Hospital Discharge instructions Follow Up Care 04/29/2023 15:31:28 With:RABIA GAN, Chris Brizuela, URL Address: [facility] [address], [place] [phone] When: Unknown [facility] 11-10-2022 NotePROCEDURE: XR FOOT RT MIN 3 [...] Electronically authenticated by: KELL BLANDON Date: 2022-09-30 08:[address] [place], [place] [address]10-03-2022 NotePROCEDURE: XR KNEE LT 4V or >, [...] authenticated by: TRINIDAD BEAVER Date: 2022-08-23 [id number] NotePROCEDURE: XR KNEE LT 4V or >, [...] Electronically authenticated by: TRINIDAD BEAVER Date: 2022-08-23 14:[facility]10-03-2022 NotePROCEDURE: XR KNEE LT 4V or [...] Electronically authenticated by: TRINIDAD BEAVER Date: 2022-08-23 14:[facility]* Encounter Date Diagnosis Assessment Notes Treatment Notes Treatment Clinical Notes March, Bilateral impacted cerumen (ICD-10 - H61.23) Avoid using Q-tips or earplugs. Keep your ears clean and dry. Follow-up with your family physician for any further concerns. [facility] 02-07-2022 Evaluation note* Encounter Date Diagnosis [...] contact us for further management as needed. [facility] Other 01-01-2021 NoteMR#: [id number] E [facility] Pt. Name: Nazario Cortes Admitted: 11/20/2020 [...] history of coronary artery disease, followed by [facility] Cardiology Clinic that presents to the [facility] Emergency Department with complaints of chest pain. [...] to follow up with his PCP and beam builder. Total time of discharge was 45 minutes. Electronically Signed by: Trinidad Hamilton MD 11/21/2020 08:00 A Trinidad Hamilton MD .. Date Dict: 11/20/2020/06:21 P/Loida Ashley CNP Date Trans: 11/21/2020 12:04 A/shabbir [id number] cc: Jose Mccloud M.D. [facility] [address] [place] [address] Center[facility] + Plan note Future Appointments Appointment Date:08/19/2023 10:30:00 AM Scheduled Provider:Chris CAMARILLO MD Location:[facility] Appointment Type:URO New Patient [facility] evaluation noteNo assessment information available [facility] Work Phone: evaluation note* Diagnosis Onset Date Resolution Status Impacted cerumen of both ears acute [facility] Work Phone: Evaluation note* Diagnosis Onset Date Resolution Status Impacted cerumen of both ears acute Left elbow pain acute [facility] Work Phone: Evaluation note* Diagnosis Onset Date Resolution Status Left elbow pain acute Impacted cerumen of both ears acute [facility] Work Phone: evaluation note* Diagnosis Onset Date Resolution Status Impacted cerumen of both ears acute Allergic rhinitis noneactive [facility] Work Phone: evaluation note* Diagnosis Major depressive disorder, recurrent episode, [...] Coronary atherosclerosis of unspecified type of vessel, [place] or graft Chest pain due to CAD [...] of intractable epilepsy documented in this encounter [facility] HealthcareEvaluation note* Diagnosis Major depressive [...] Coronary atherosclerosis of unspecified type of vessel, [place] or graft Chest pain due to CAD [...] of lumbar region documented in this encounter [facility] HealthcareEvaluation note* Diagnosis Major depressive disorder, recurrent [...] Coronary atherosclerosis of unspecified type of vessel, [place] or graft Chest pain due to CAD [...] recurrent episode, mild documented in this encounter [facility] HealthcareEvaluation note* Diagnosis Major depressive disorder, recurrent [...] Coronary atherosclerosis of unspecified type of vessel, [place] or graft Chest pain due to CAD [...] Coronary atherosclerosis of unspecified type of vessel, [place] or graft Chest pain due to CAD [...] Coronary atherosclerosis of unspecified type of vessel, [place] or graft Chest pain due to CAD [...] of lumbar region documented in this encounter [facility] HealthcareEvaluation note* Diagnosis Major depressive [...] Coronary atherosclerosis of unspecified type of vessel, [place] or graft Chest pain due to CAD [...] unspecified site (CMS/HCC) documented in this encounter [facility] HealthcareEvaluation note* Diagnosis Major depressive disorder, recurrent [...] Coronary atherosclerosis of unspecified type of vessel, [place] or graft Chest pain due to CAD [...] of colon- Primary documented in this encounter [facility] HealthcareEvaluation note* Diagnosis Major depressive disorder, recurrent [...] Coronary atherosclerosis of unspecified type of vessel, [place] or graft Chest pain due to CAD [...] of intractable epilepsy documented in this encounter [facility] HealthcareEvaluation note* Diagnosis Major depressive [...] Coronary atherosclerosis of unspecified type of vessel, [place] or graft Chest pain due to CAD [...] Unspecified sinusitis (chronic) documented in this encounter [facility] HealthcareEvaluation note* Diagnosis Major depressive [...] Coronary atherosclerosis of unspecified type of vessel, [place] or graft Chest pain due to CAD [...] Deviated nasal septum documented in this encounter [facility] HealthcareEvaluation note* Diagnosis Major depressive disorder, recurrent [...] Coronary atherosclerosis of unspecified type of vessel, [place] or graft Chest pain due to CAD [...] neoplasm of urinary bladder, unspecified site (CMS/HCC) Coronary artery disease involving [place] coronary artery of [place] heart without angina pectoris (CMS/HCC)- Primary SOB (shortness of breath) on exertion Shortness of breath documented in this encounter [facility] HealthcareHistory general Narrative - Reported* Type Description Date Medical History Seizure Disorder Medical History neuropathy Medical History HX of Bladder CA Medical History hypercholesterolemia Surgical History TUMOR REMOVED FROM BLADDER Surgical History RIGHT ACHILLES TENDON REPAIR Hospitalization History See Above [facility] Other History general Narrative - Reported* Type [...] Surgical History gallbladder Hospitalization History See Above [facility] Other Hospital course Narrative No data available for this section [facility] InstructionsNot on filedocumented in this encounter [facility] No data available for this section [facility] reason for visit NarrativeReferral Dr. Newell [facility]iculopathyN[facility] Other reason for visit Narrative* Consultation (Routine) - Closed Specialty Diagnoses / Procedures Referred By Yariel alvarez Referred To Contact General Surgery Diagnoses Colon cancer screening Procedures [place] OFFICE/OUTPATIENT NEW HIGH MDM Jignesh Gonsalez MD [address] [place] [address] Phone: tel: fax: Jose M Rea, [address] [facility] [address] [place] [address] Phone: tel: fax: Referral ID Status Reason Start Date Expiration Date V isits Requested Visits Authorized [id number] Closed Specialty Services Required 10/25/2024 04/23/2025 1 1 [facility] Summary Purpose Family History No Family History [...] o other toxic agents (G62.2) Referral Organization [facility] urosurgery Referring Provider First Name Luiz Referring Provider Last Name Keely Referring Provider Specialty Neurologica l Surgery Referred Organization [facility] Referred Address ,[place], [place],[address] Referred Provider Specialty Physical The rapist Referral [...] and content) DATE CREATED AUTHOR 08/29/2021 [facility] DATE CREATED AUTHOR AUTHOR'S ORGANIZ ATION 10/31/2021 [facility] DATE CREATED AUTHOR AUTHOR'S ORGANIZ ATION 01/13/2023 [facility] DATE CREATED AUTHOR AUTHOR'S ORGANIZ ATION 12/25/2023 [facility] DATE CREATED AUTHOR AUTHOR'S ORGANIZ ATION 12/29/2023 [facility] DATE CREATED AUTHOR AUTHOR'S ORGANIZ ATION 10/20/2024 [facility] DATE CREATED AUTHOR AUTHOR'S ORGANIZ ATION 01/22/2025 [facility] DATE CREATED AUTHOR AUTHOR'S ORGANIZ ATION 01/24/2025 [facility] REASON FOR VISIT (unrecogniz ed section [...] Diagnoses Deviated nasal septum Chronic rhinosinusitis Procedures [place] OFFICE/OUTPATIENT [facility] 60 MINUTES Jignesh Gonsalez MD [address] [place] [address] Phone: tel: fax: Amrik Pérez MD [address] [address] Phone: tel: fax: Referral ID Status Reason Start Date Expiration Date V isits Requested Visits Authorized [id number] Closed Specialty Services Required 11/28/2024 05/27/2025 1 1 Reason Comments Follow-up Hospital f/up [place] Care Teams (unrecognized sec tion and content) [...] Attending Provider Active Start: September 07, 2024 Billing Coordinator Relationship Specialty Start Date End Date Jignesh Gonsalez MD [address] [place] [address] PCP - General Family Medicine 12/15/23 Billing Coordinator Relationship Specialty Start Date End Date Jignesh Gonsalez MD [address] [place] [address] PCP - General Family Medicine 12/15/23 Billing Coordinator Relationship Specialty Start Date End Date Jignesh Gonsalez MD [address] [place] [address] PCP - General Family Medicine 12/15/23 Billing Coordinator Relationship Specialty Start Date End Date Jignesh Gonsalez MD [address] [place] [address] PCP - General Family Medicine 12/15/23 Billing Coordinator Relationship Specialty Start Date End Date Jignesh Gonsalez MD [address] [place] [address] PCP - General Family Medicine 12/15/23 Billing Coordinator Relationship Specialty Start Date End Date Jignesh Gonsalez MD [address] [place] [address] PCP - General Family Medicine 12/15/23 Billing Coordinator Relationship Specialty Start Date End Date Jignesh Gonsalez MD [address] [place] [address] PCP - General Family Medicine 12/15/23 Billing Coordinator Relationship Specialty Start Date End Date Jignesh Gonsalez MD [address] [place] [address] PCP - General Family Medicine 12/15/23 Billing Coordinator Relationship Specialty Start Date End Date Jignesh Gonsalez MD [address] [place] [address] PCP - General Family Medicine 12/15/23 Billing Coordinator Relationship Specialty Start Date End Date Jignesh Gonsalez MD [address] [place] [address] PCP - General Family Medicine 12/15/23 Billing Coordinator Relationship Specialty Start Date End Date Jignesh Gonsalez MD [address] [place] [address] PCP - General Family Medicine 12/15/23 Billing Coordinator Relationship Specialty Start Date End Date Jignesh Gonsalez MD [address] [place] [address] PCP - General Family Medicine 12/15/23 Billing Coordinator Relationship Specialty Start Date End Date Jignesh Gonsalez MD [address] [place] [address] PCP - General Family Medicine 12/15/23 Billing Coordinator Relationship Specialty Start Date End Date Jose Mccloud DO [address] [place] [address] [place] [address] PCP - General Family Medicine 11/17/23 Billing Coordinator Relationship Specialty Start Date End Date Jignesh Gonsalez MD [address] [place] [address] PCP - General Family Medicine 12/15/23 Billing Coordinator Relationship Specialty Start Date End Date Jignesh Gonsalez MD [address] [place] [address] PCP - General Family Medicine 12/15/23 Goals [...] BE BASED ON THE PRIMARY CLINICAL RECORDS. [employer] provides no warranty or guarantee of the accuracy or completeness of information in this document.
[2025-01-26 08:48] LABS: Basophils Absolute Auto 0.1 10^3/uL (0.0-0.1); Basophils Percent Auto 1.1 % (0.2-2.0); Eosinophils Absolute Auto 0.5 10^3/uL (0.0-0.7); Eosinophils Percent Auto 7.3 % (0.9-7.0); Hematocrit 40.9 % (42.0-54.0); Hemoglobin 13.6 g/dL (14.0-18.0); Immature Granulocytes Abs Auto 0.04 10^3/uL (0.00-0.03); Immature Granulocytes Pct Auto 0.6 % (0.0-0.5); Lymphocytes Absolute Auto 1.2 10^3/uL (1.2-3.8); Lymphocytes Percent Auto 16.9 % (20.5-60.0); Mean Corpuscular HGB Conc 33.3 g/dL (29.9-35.2); Mean Corpuscular Hemoglobin 33.9 pg (25.9-34.0); Mean Platelet Volume 10.2 fL (9.5-13.5); Monocytes Absolute Auto 0.6 10^3/uL (0.3-0.8); Monocytes Percent Auto 8.3 % (1.7-12.0); Neutrophils Absolute Auto 4.7 10^3/uL (1.4-6.5); Neutrophils Percent Auto 65.8 % (43.0-75.0); Platelet Count 195 10^3/uL (150-450); Red Blood Count 4.01 10^6/uL (4.70-6.10); Red Cell Distribution Width 13.3 % (11.0-15.0); White Blood Count 7.1 10^3/uL (4.0-11.0)
[2025-01-26 09:17] LABS: Alanine Aminotransferase 25 U/L (16-63); Albumin Globulin Ratio 0.6; Albumin Level 3.1 g/dL (3.4-5.0); Alkaline Phosphatase 178 U/L (46-116); Anion Gap 12.3; Aspartate Amino Transferase 23 U/L (15-37); BUN Creatinine Ratio 14.9; Bilirubin Direct 0.1 mg/dL (0.0-0.2); Bilirubin Total 0.5 mg/dL (0.2-1.0); Calcium 8.5 mg/dL (8.5-10.1); Chloride 103 mmol/L (98-107); Chol HDL Ratio 2.7; Cholesterol 152 mg/dL (<=200); Estimated GFR (African America >60 (>=60 mL/min/1.73m^2); Estimated GFR (Non-African Ame >60 (>=60 mL/min/1.73m^2); Globulin 5.2 g/dL; Glucose 100 mg/dL (74-106); HDL Cholesterol 57 mg/dL (40-60); Potassium 4.3 mmol/L (3.5-5.1); Sodium 138 mmol/L (136-145); Thyroid Stimulating Hormone 3.026 uIU/mL (0.358-3.740); Total Protein 8.3 g/dL (6.4-8.2); Triglycerides 175 mg/dL (<=150)
[2025-01-26 09:21] LABS: Prostate Specific Antigen Scrn 0.54 ng/mL (<=4.00)
== END 2025-01-26 07:44 | disposition home or self-care (01) ==
LOC: LAB 07:45
PROVIDERS: PCP Family Medicine; Visit Provider Family Medicine
DX: E78.5 Hyperlipidemia, unspecified (principal); Z79.899 Other long term (current) drug therapy; Z12.5 Encounter for screening for malignant neoplasm of prostate; E66.813 Obesity, class 3; E66.01 Morbid (severe) obesity due to excess calories; Z68.41 Body mass index [BMI] 40.0-44.9, adult
CPT/HCPCS: 36415; 80048; 80061; 80076; 84443; 85025; G0103

== ENCOUNTER 2025-02-21 11:27 | Emergency (ER) | payer MEDICARE, SELFPAY ==
[2025-02-21] VITALS (21 sets, daily range): BP systolic 115–152; BP diastolic 51–79; PULSE 68–80; TEMP 36.8; O2SAT 92–97; BMI 40.8
--- NOTE | 2025-02-21 11:43 | ECG_ITS ---
[facility] Test Date: 2025-02-21 Pat Name: GÓMEZ CORTES Department: Room: - Gender: Male Director Of Restaurants: : 1955 Requested By: [id number] Order Number: [id number] Reading MD: COLE MOREIRA M.D. Measurements Intervals [place] Rate: 74 P: 34 TX: 186 QRS: 10 QRSD: 84 T: 49 QT: 388 QTc: 416 Interpretive Statements 1100 Sinus rhythm 9110 normal ECG Compared to ECG 01/10/2025 04:29:19 No significant changes Electronically Signed On 02-22-2025 15:11:57 EDT by COLE MOREIRA M.D.
[2025-02-21 11:50] LABS: Glucometer 93 mg/dL (74-106)
[2025-02-21 12:04] LABS: Basophils Absolute Auto 0.1 10^3/uL (0.0-0.1); Basophils Percent Auto 0.8 % (0.2-2.0); Eosinophils Absolute Auto 0.5 10^3/uL (0.0-0.7); Eosinophils Percent Auto 4.9 % (0.9-7.0); Hematocrit 41.5 % (42.0-54.0); Hemoglobin 13.7 g/dL (14.0-18.0); Immature Granulocytes Abs Auto 0.03 10^3/uL (0.00-0.03); Immature Granulocytes Pct Auto 0.3 % (0.0-0.5); Lymphocytes Percent Auto 20.8 % (20.5-60.0); Mean Corpuscular Hemoglobin 33.3 pg (25.9-34.0); Mean Corpuscular Volume 100.7 fL (80.0-94.0); Mean Platelet Volume 10.1 fL (9.5-13.5); Monocytes Percent Auto 10.1 % (1.7-12.0); Neutrophils Percent Auto 63.1 % (43.0-75.0); Platelet Count 208 10^3/uL (150-450); Red Blood Count 4.12 10^6/uL (4.70-6.10); White Blood Count 9.5 10^3/uL (4.0-11.0)
[2025-02-21 12:20] LABS: Alanine Aminotransferase 32 U/L (16-63); Albumin Globulin Ratio 0.6; Albumin Level 3.1 g/dL (3.4-5.0); Alkaline Phosphatase 178 U/L (46-116); Anion Gap 13.9; Aspartate Amino Transferase 25 U/L (15-37); BUN Creatinine Ratio 17.5; Bilirubin Total 0.3 mg/dL (0.2-1.0); Calcium 8.4 mg/dL (8.5-10.1); Carbon Dioxide 25.1 mmol/L (21.0-32.0); Chloride 101 mmol/L (98-107); Estimated GFR (African America >60 (>=60 mL/min/1.73m^2); Estimated GFR (Non-African Ame >60 (>=60 mL/min/1.73m^2); Globulin 5.6 g/dL; Glucose 96 mg/dL (74-106); Sodium 136 mmol/L (136-145); Total Protein 8.7 g/dL (6.4-8.2); Troponin I High Sensitivity 4.2 pg/mL (4.0-76.1)
[2025-02-21 14:07] LABS: Troponin I High Sensitivity 4.7 pg/mL (4.0-76.1)
--- NOTE | 2025-02-21 14:24 | ED.CHESTPAI1 ---
HPI - Chest Pain General Chief Complaint: Chest Pain Stated Complaint: CHEST PAIN AND SHAKY Time Seen by Provider: 02/21/25 11:42 Source: patient Mode of arrival: Wheelchair Limitations: no limitations History of Present Illness HPI narrative: The patient is 70 years old male is coming to the ER after he was just in the hospital with his on the second floor awaiting for surgery, the patient was getting surgery when he was waiting and he started having some shakiness, he mentioned that he really has some soft drink before arrival and he was feeling much better, but he also has some chest pain that resolved before arrival, and the pain started after the shakiness, on arrival the patient have no symptoms and he just had breakfast earlier today The patient denies any other complaints he was evaluated with a cardiac cath almost a month ago when he had a negative workup Related Data Home Medications ?Medication ?Instructions ?Recorded ?Confirmed atorvastatin 10 mg tablet 10 mg PO .hs 05/12/23 02/21/25 citalopram 40 mg tablet 40 mg PO DAILY 05/12/23 02/21/25 meclizine 25 mg tablet 25 mg PO QID PRN dizziness 05/12/23 02/21/25 phenobarbital 32.4 mg tablet 32.4 mg PO Q12H 05/12/23 02/21/25 phenytoin sodium extended 100 mg 200 mg PO TID 05/12/23 02/21/25 capsule furosemide 40 mg tablet 40 mg PO DAILY edema 05/24/24 02/21/25 nitroglycerin 0.3 mg sublingual 0.3 mg sublingual Q5M PRN chest 05/24/24 02/21/25 tablet pain methocarbamol 750 mg tablet 750 mg PO Q8H PRN muscle spasm 12/04/24 02/21/25 psyllium husk 0.4 gram capsule 0.4 g PO DAILY 12/04/24 02/21/25 (Daily Fiber) aspirin 81 mg tablet,delayed 81 mg PO DAILY 01/09/25 02/21/25 release (Adult Low Dose Aspirin) albuterol sulfate 90 mcg/actuation 2 inh inhalation Q4H PRN shortness 02/21/25 02/21/25 aerosol inhaler of breath or wheezing bisacodyl 5 mg tablet,delayed 5 mg PO DAILY PRN constipation 02/21/25 02/21/25 release fluticasone propionate 50 2 spray intranasal Q12H 02/21/25 02/21/25 mcg/actuation nasal spray,suspension metoprolol succinate 25 mg 25 mg PO DAILY 02/21/25 02/21/25 tablet,extended release 24 hr spironolactone 25 mg tablet 25 mg PO DAILY 02/21/25 02/21/25 Previous Rx's ?Medication ?Instructions ?Recorded hydrocodone 5 mg-acetaminophen 325 1 tab PO Q6H PRN pain 3 days #12 02/18/24 mg tablet tabs Allergies Allergy/AdvReac Type Severity Reaction Status Date / Time oxycodone (From OxyContin) Allergy Severe Anaphylaxis Verified 01/09/25 19:42 gabapentin Allergy Unknown Unknown Verified 01/09/25 19:42 Review of Systems ROS Status of ROS 10 or more systems reviewed and unremarkable except as noted in history and below [facility] Medical History (Updated 02/21/25 @ 14:21 by Jolie Manning MD) Seizure disorder ?G40.909 - Epilepsy, unspecified, not intractable, without status epilepticus (ICD-10) CAD (coronary artery disease) ?I25.10 - Atherosclerotic heart disease of [place] coronary artery without angina pectoris (ICD-10) Cervical vertebral fusion ?M43.22 - Fusion of spine, cervical region (ICD-10) Lipoma of axilla ?D17.20 - Benign lipomatous neoplasm of skin and subcutaneous tissue of unspecified limb (ICD-10) Rupture, tendon, Achilles ?S86.019A - Strain of unspecified Achilles tendon, initial encounter (ICD-10) Syncope ?R55 - Syncope and collapse (ICD-10) Seizure ?R56.9 - Unspecified convulsions (ICD-10) Malignant neoplasm of mediastinum ?C38.3 - Malignant neoplasm of mediastinum, part unspecified (ICD-10) Depression ?F32.A - Depression, unspecified (ICD-10) Dyslipidemia ?E78.5 - Hyperlipidemia, unspecified (ICD-10) Deviated nasal septum ?J34.2 - Deviated nasal septum (ICD-10) Degenerative lumbar spinal stenosis ?M48.061 - Spinal stenosis, lumbar region without neurogenic claudication (ICD-10) 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 - Drug-induced polyneuropathy (ICD-10) ?T45.1X5A - Adverse effect of antineoplastic and immunosuppressive drugs, initial encounter (ICD-10) CAD, multiple vessel ?I25.10 - Atherosclerotic heart disease of [place] coronary artery without angina pectoris (ICD-10) 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 - Malignant neoplasm of mediastinum, part unspecified (ICD-10) Bladder cancer ?C67.9 - Malignant neoplasm of bladder, unspecified (ICD-10) HLD (hyperlipidemia) ?E78.5 - Hyperlipidemia, unspecified (ICD-10) Chest pain ?R07.9 - Chest pain, unspecified (ICD-10) Surgical History (Updated 12/11/24 @ 07:49 by Sandy Holley) History of cataract surgery ?Z98.49 - Cataract extraction status, unspecified eye (ICD-10) History of foot surgery ?Z98.890 - Other specified postprocedural states (ICD-10) History of esophagogastroduodenoscopy (EGD) ?Z98.890 - Other specified postprocedural states (ICD-10) History of colonoscopy ?Z98.890 - Other specified postprocedural states (ICD-10) History of neck surgery ?Z98.890 - Other specified postprocedural states (ICD-10) H/O shoulder surgery ?Z98.890 - Other specified postprocedural states (ICD-10) History of cholecystectomy ?Z90.49 - Acquired absence of other specified parts of digestive tract (ICD-10) Family History (Updated 12/04/24 @ 14:46 by Jackie Nielson) Father Family history of myocardial infarction Sister Family history of cancer Other Family history of coronary artery disease Family history of diabetes mellitus Family history of gastric cancer Family history of heart disease Family history of hypertension Family history of kidney cancer Family history of stroke Social History (Updated 01/09/25 @ 23:51 by Amie Florian RN) Within the past year, how often did you have a drink containing alcohol: never Score interpretation: A score less than 4 is consistent with normal alcohol consumption. Smoking status: Former smoker Non-prescribed substance use: denies use Previous occupational history: retired Highest level of school completed/degree received: Associate degree: academic program Are you now , , , , never or living with a partner: In a typical week, how many times do you talk on the telephone with family, friends, or neighbors: 3 or more times per week How often do you get together with friends or relatives: 3 or more times per week Little interest or pleasure in doing things: not at all Feeling down, depressed, or hopeless: not at all Feel stressed/tense/nervous/anxious/difficulty sleeping: to some extent Life stressors: other Life stressor details: health Gender Identity: male Exam Narrative Exam Narrative: Nurses notes and vital signs reviewed and patient is not hypoxic. General: Well-appearing and in no apparent distress. Skin: Warm, dry, no pallor noted. No rash. Head: Normocephalic, atraumatic. Neck: Supple, non-tender. Eye: Pupils are equal, round and EOMI. No scleral icterus. Ears, Nose, Mouth, and Throat: TM are clear, no nasal mucosal hypertrophy. Oral mucosa is moist, no posterior oropharynx erythema, uvula is mid-line Cardiovascular: Regular Rate and Rhythm without murmur, gallop or rub. Respiratory: No accessory muscle use or respiratory distress. Lungs are clear to auscultation, no wheezing, rales or rhonchi Chest Wall: no tenderness Back: No midline thoracic or lumbar vertebral tenderness. No CVA tenderness Musculoskeletal: normal ROM, no calf or popliteal tenderness, no lower extremity edema/swelling GI: Abdomen is soft, non-distended. Normal bowel sounds. No masses appreciated. No tenderness to palpation. No rebound, guarding, or rigidity noted. Neurological: A&O x4. No cranial nerve dysfunction observed. No truncal ataxia. Moves all extremities. Sensation intact. Psychiatric: Cooperative and interactive. Normal mood and affect. Constitutional Vital Signs, click to edit/add: Last Vital Signs Temp 98.3 F 02/21/25 11:34 Pulse 68 02/21/25 13:40 Resp 21 H 02/21/25 13:40 BP 138/77 02/21/25 13:30 Pulse Ox 92 L 02/21/25 13:40 O2 Del Method Room Air 02/21/25 12:08 Course Vital Signs Vital signs: Vital Signs Temperature 98.3 F 02/21/25 11:34 Pulse Rate 77 02/21/25 11:34 Respiratory Rate 17 02/21/25 11:34 Blood Pressure 152/78 H 02/21/25 11:34 Pulse Oximetry 92 L 02/21/25 11:34 Oxygen Delivery Method Room Air 02/21/25 11:34 Temperature 98.3 F 02/21/25 11:34 Pulse Rate 68 02/21/25 13:40 Respiratory Rate 21 H 02/21/25 13:40 Blood Pressure 138/77 02/21/25 13:30 Pulse Oximetry 92 L 02/21/25 13:40 Oxygen Delivery Method Room Air 02/21/25 12:08 MDM - Chest Pain MDM Narrative Medical decision making narrative: The patient EKG showing sinus rhythm with a heart rate of [address] elevation or depression Chest x-ray showed no acute pathology CBC and chemistry as well as troponin repeated twice showed no acute pathology The patient evaluation in the ER showed no acute pathology and he was not have any complain he was feeling much better by the time he got to the ER With the fact that the patient recently had a cardiac cath almost a month ago that showed no significant coronary artery disease The patient will be discharged home with monitoring and supportive care The patient is to follow up with primary care physician in next 2-3 days or to return to the emergency department should any of the signs or symptoms worsen or new symptoms develop. The patient agrees with the following Diagnosis and Treatment plan and the patient will be discharged home. Lab Data Labs: Lab Results 02/21/25 02/21/25 Range/Units 11:47 13:41 WBC 9.5 (4.0-11.0) 10^3/uL RBC 4.12 L (4.70-6.10) 10^6/uL Hgb 13.7 L (14.0-18.0) g/dL Hct 41.5 L (42.0-54.0) % MCV 100.7 H (80.0-94.0) fL MCH 33.3 (25.9-34.0) pg MCHC 33.0 (29.9-35.2) g/dL RDW 13.0 (11.0-15.0) % Plt Count 208 (150-450) 10^3/uL MPV 10.1 (9.5-13.5) fL Neut % (Auto) 63.1 (43.0-75.0) % Lymph % (Auto) 20.8 (20.5-60.0) % [place] % (Auto) 10.1 (1.7-12.0) % Eos % (Auto) 4.9 (0.9-7.0) % Baso % (Auto) 0.8 (0.2-2.0) % Neut # (Auto) 6.0 (1.4-6.5) 10^3/uL Lymph # (Auto) 2.0 (1.2-3.8) 10^3/uL [place] # (Auto) 1.0 H (0.3-0.8) 10^3/uL Eos # (Auto) 0.5 (0.0-0.7) 10^3/uL Baso # (Auto) 0.1 (0.0-0.1) 10^3/uL Abs Immat Gran (auto) 0.03 (0.00-0.03) 10^3/uL Imm/Tot Granulo (auto) 0.3 (0.0-0.5) % Sodium 136 (136-145) mmol/L Potassium 4.0 (3.5-5.1) mmol/L Chloride 101 (98-107) mmol/L Carbon Dioxide 25.1 (21.0-32.0) mmol/L Anion Gap 13.9 BUN 20.0 H (7.0-18.0) mg/dL Creatinine 1.14 (0.70-1.30) mg/dL Est GFR ( Amer) >60 (>=60 mL/min/1.73m^2) Est GFR (Non-Af Amer) >60 (>=60 mL/min/1.73m^2) BUN/Creatinine Ratio 17.5 Glucose 96 (74-106) mg/dL Calcium 8.4 L (8.5-10.1) mg/dL Total Bilirubin 0.3 (0.2-1.0) mg/dL AST 25 (15-37) U/L ALT 32 (16-63) U/L Alkaline Phosphatase 178 H (46-116) U/L Troponin I High Sens 4.2 4.7 (4.0-76.1) pg/mL Total Protein 8.7 H (6.4-8.2) g/dL Albumin 3.1 L (3.4-5.0) g/dL Globulin 5.6 g/dL Albumin/Globulin Ratio 0.6 POC Glucose 93 (74-106) mg/dL Discharge Plan Discharge Chief Complaint: Chest Pain Clinical Impression: Chest pain Patient Disposition: Home, Self-Care Time of Disposition Decision: 14:21 Condition: Good Prescriptions / Home Meds: No Action hydrocodone-acetaminophen 5-325 mg tablet 1 tab PO Q6H PRN (Reason: pain) 3 Days Qty: 12 0RF Rx Instructions: M54.5 furosemide 40 mg tablet 40 mg PO DAILY nitroglycerin 0.3 mg tablet, sublingual 0.3 mg sublingual Q5M PRN (Reason: chest pain) psyllium husk [Daily Fiber] 0.4 gram capsule 0.4 g PO DAILY methocarbamol 750 mg tablet 750 mg PO Q8H PRN (Reason: muscle spasm) aspirin [Adult Low Dose Aspirin] 81 mg tablet,delayed release (DR/EC) 81 mg PO DAILY atorvastatin 10 mg tablet 10 mg PO .hs citalopram 40 mg tablet 40 mg PO DAILY meclizine 25 mg tablet 25 mg PO QID PRN (Reason: dizziness) phenobarbital 32.4 mg tablet 32.4 mg PO Q12H phenytoin sodium extended 100 mg capsule 200 mg PO TID spironolactone 25 mg tablet 25 mg PO DAILY bisacodyl 5 mg tablet,delayed release (DR/EC) 5 mg PO DAILY PRN (Reason: constipation) metoprolol succinate 25 mg tablet extended release 24 hr 25 mg PO DAILY albuterol sulfate 90 mcg/actuation HFA aerosol inhaler 2 inh INHALATION Q4H PRN (Reason: shortness of breath or wheezing) fluticasone propionate 50 mcg/actuation spray,suspension 2 spray INTRANASAL Q12H Print Language: [place] Instructions: Chest Pain (DC) Referrals: Jignesh Manjarrez MD [Primary Care Provider] - 1 week
== END 2025-02-21 14:32 | disposition home or self-care (01) ==
PROVIDERS: Emergency Provider Emergency Medicine; PCP Family Medicine
DX: R07.9 Chest pain, unspecified (principal); Z90.49 Acquired absence of other specified parts of digestive tract; Z87.891 Personal history of nicotine dependence
CPT/HCPCS: 36415; 71045; 80053; 84484; 85025; 93005; 99285

== ENCOUNTER 2025-02-22 12:26 | Outpatient (OUT) | payer MEDICARE, SELFPAY ==
--- NOTE | 2025-02-22 14:32 | RT_ITS ---
[facility] Test Date: 2025-02-22 Pat Name: GÓMEZ CORTES Department: Room: - Gender: Male Chief Media Officer: Tommy Fitch RRT : 1955 Requested By: ADALID GONSALEZ Order Number: [id number] Reading MD: Perfecto Portillo Interpretive Statements Pulmonary function testing was completed according to ATS criteria. Findings were considered accurate and reproducible, though several tests were unable to meet ATS standards. Both pre- and post-bronchodilator values utilized for spirometry. Spirometry (based on pre-bronchodilator values): -FEV1/FVC: Normal @ 85% -FEV1: Reduced @ 77% -FVC: Moderately reduced @ 66% -There is no significant bronchodilator response. Lung volumes by plethysmography (based on pre-bronchodilator values): -RV: Normal @ 97% -TLC: Low normal @ 80% Diffusion capacity: -DLCO: Moderate reduction @ 58% when corrected for Hb 13.7g/dL Impressions: -Spirometry suggests moderate obstruction, though TLC is low normal. Moderate diffusion capacity. This pattern could be seen in ILD or cardiopulmonary vascular disease, or secondary to morbid obesity (stated BMI 40.9) obscuring an underlying obstructive lung disease such as emphysema. Clinical correlation required. Electronically Signed On 02-27-2025 13:57:13 EDT by Perfecto Portillo
[2025-02-22] MEDS: ALBUTEROL SULFATE 2.5 MG/3 ML VIAL NEB IH (14:37)
== END 2025-02-22 12:27 | disposition home or self-care (01) ==
LOC: CARD 12:27
PROVIDERS: PCP Family Medicine; Visit Provider Family Medicine
DX: R06.02 Shortness of breath (principal)
CPT/HCPCS: 94060; 94726; 94729

== ENCOUNTER 2025-03-07 20:02 | Inpatient (IN) | payer MEDICARE, SELFPAY ==
[2025-03-07] VITALS (28 sets, daily range): BP systolic 135–152; BP diastolic 77–92; PULSE 79–101; TEMP 36.6–36.7; O2SAT 92–99; BMI 40.4; BMI 40.7
--- NOTE | 2025-03-07 20:16 | ECG_ITS ---
[facility] Test Date: 2025-03-07 Pat Name: GÓMEZ CORTES Department: Room: - Gender: Male Digester Cook: : 1955 Requested By: [id number] Order Number: [id number] Reading MD: COLE MOREIRA M.D. Measurements Intervals [place] Rate: 78 P: 49 CA: 174 QRS: 16 QRSD: 84 T: 40 QT: 380 QTc: 414 Interpretive Statements 1100 Sinus rhythm 9110 normal ECG Compared to ECG 02/21/2025 11:34:46 No significant changes Electronically Signed On 03-08-2025 11:51:46 EDT by COLE MOREIRA M.D.
--- OUTSIDE RECORDS SUMMARY | 2025-03-07 20:19 | XMS_ITS | CCD ---
Author Organization [facility] Care Team Providers Care Watershed Manager Name Role Phone KARINA JAY Attending [...] Unavailable MD Jignesh Gonsalez Primary Care Provider [phone] RIDGE Garcia Attending Provider MD Jignesh Gonsalez Primary Care Provider RIDGE Garcia Attending Provider Jignesh Gonsalez MD Primary Care Provider [phone] Jignesh Gonsalez Primary Care Unavailable Joslyn Garcia Attending Unavailable Joslyn Garcia Admitting Unavailable Jignesh Gonsalez Primary Care Unavailable Joslyn Garcia Attending Unavailable Joslyn Garcia Admitting Unavailable Yancy Lawson Admitting Unavailable Jignesh Gonsalez Primary Care Unavailable Yancy Lawson M Attending Unavailable Jose Mccloud DO Primary Care Provider DARRELL THOMAS Referring Unavailable DARRELL THOMAS Referring Unavailable ELTAARNAUD DE DIOS Attending Unavailable CORNELIO HODGES Attending Unavailable MOUKARBCOLE OROZCO Referring Unavailable SAPPHIRE, BONANANO Admitting Unavailable ROZINA JOSHI Attending Unavailable CORNELIO HODGSE Referring Unavailable JONY WEBBER Referring Unavailable AMRIK PÉREZ Attending Unavailable JIGNESH GONSALEZ Referring Unavailable JIGNESH GONSALEZ Attending Unavailable CORNELIO COTTER Attending Unavailable CHARI VELA Attending Unavailable JIGNESH GONSALEZ Attending Unavailable IMELDA THOMPSON Attending Unavailable JIGNESH GONSALEZ Attending Unavailable IMELDA THOMPSON Attending Unavailable IMELDA THOMPSON Referring Unavailable JIGNESH GONSALEZ Attending Unavailable CHARI VELA Attending Unavailable JIGNESH GONSALEZ Attending Unavailable JOSE M REA Attending Unavailable JIGNESH GONSALEZ Referring Unavailable Allergies Allergy Classification Reported Allergen(s) Allergy Type Date of Onset Reaction(s) Facility Anti-Epileptic Agents (2 sources) gabapentin Drug Allergy 4 stomach upset, IV ONLY-Dizzy [facility] Opioid Agonists (1 source) oxyCODONE Drug Allergy 4 Unknown Reaction [facility] (11 sources) gabapentin; Translations: [GABAPENTIN] Drug Allergy 0 stomach upset [facility] Repository (2 sources) oxyCODONE Drug Allergy 0 [facility] Repository (3 sources) Phenytoin; Translations: [Dilantin] Drug Allergy 0 [facility] Repository (20 sources) gabapentin; Translations: [gabapentin] Drug Allergy 0 Unknown (qualifier value), Unknown [facility] (20 sources) oxyCODONE; Translations: [oxycodone] Drug Allergy 0 Difficulty breathing (finding), Angioedema, Unknown [facility] (20 sources) Phenytoin; Translations: [phenytoin] Drug Allergy 6 Dizziness (finding), Unknown, Dizziness [facility] (1 source) Phenytoin; Translations: [PHENYTOIN SODIUM EXTENDED] Drug Allergy 6 [facility] Repository (1 source) gabapentin Drug Allergy 4 [facility] Repository (1 source) oxyCODONE Drug Allergy 4 [facility] Repository (1 source) Phenytoin Drug Allergy 4 [facility] Repository Medications Current Medications Medication Drug Class(es) Dates Sig (Normalized) Sig (Original) acetaminophen 325 mg / HYDROcodone bitartrate 5 mg oral tablet (20 sources) Opioid Agonist Start: 01-28-2025 End: 02-04-2025 take 1 tablet by mouth four times daily as needed for pain HYDROcodone-acetami nophen ([place]) 5-325 MG tablet Indications: Degenerative lumbar spinal stenosis Take 1 tablet by mouth 4 (four) times a day as needed for severe pain for up to 7 days 28 tablet 01/28/2025 02/04/2025 Active Start: 11-15-2024 End: 11-22-2024 take 1 tablet by mouth four times daily as needed for pain HYDROcodone-acetaminophen ([place]) 5-325 MG tablet Indications: Degenerative lumbar spinal stenosis Take 1 tablet by mouth 4 (four) times a day as needed for severe pain for up to 7 days 28 tablet 11/15/2024 11/22/2024 Active Start: 10-11-2024 End: 11-01-2024 take 1 tablet by mouth four times daily as needed for pain HYDROcodone-acetaminophen ([place]) 5-325 MG tablet Indications: Degenerative lumbar spinal stenosis Take 1 tablet by mouth 4 (four) times a day as needed for severe pain for up to 7 days 28 tablet 10/25/2024 11/01/2024 Active Start: 04-23-2024 take 1 tablet by ambika th four times daily Hydrocodone-Acetaminophen Active 1 TAB P O Four times daily April 23, 2024 12:00am [place] Active take 1 tablet by ambika th every six hours HYDROcodone-Acetaminophen 7.5-325 MG 1 tablet as needed Orally every 6 hrs Active [id number] actuat albuterol 0.09 mg/actuat metered dose inhaler (7 sources) beta2-Adrenergic Agonist Start: 01-21-2025 take 2 [...] tablet (20 sources) Serotonin Reuptake Inhibitor Start: 02-11-2025 take 1 tablet by mouth in the morning citalopram (CeleXA) 40 MG tablet Indications: Major depressive disorder, recurrent episode, mild (HCC) (CMS/HCC) TAKE 1 TABLET BY MOUTH IN THE MORNING 30 tablet 5 02/11/2025 Active Start: 03-19-2024 End: 10-24-2024 take 1 tablet [...] 2 mg/ml injectable solution (1 source) vit O0-C2-R5-B5- B6 (B-COMPLEX INJECTION) 201-5-051-2-2 mg/mL solution B-Complex 1 QD 0 Active fluticasone propionate 0.05 mg/actuat metered dose nasal spray (20 sources) Corticosteroid Start: 10-25-2024 take 2 spray(s) [...] mg tablet,disintegrating 1 tablet 0 Active Meloxicam [facility] Meloxicam Active methocarbamol 750 mg oral [...] succinate 25 mg extended release oral tablet (6 sources) beta-Adrenergic Daisy Start: 02-20-2025 take 1 tablet by mouth once daily metoprolol succinate XL (Toprol-XL) 25 MG 24 hr tablet Take 25 mg by mouth Daily 02/20/2025 Active Start: 01-13-2025 End: 02-12-2025 take 1 tablet by mouth every twenty-four hours in the morning metoprolol succinate XL (Toprol-XL) 25 MG 24 hr tablet Take 25 mg by mouth in the morning. 01/13/2025 02/12/2025 Active Multiple Vitamins-Minerals (men's 50+ multivitamin w/min) tablet (10 sources) take 1 tablet by mouth once daily Multiple Vitamins-Minerals (men's 50+ multivitamin w/min) tablet Take 1 tablet by mouth Daily Active Multivitamin preparation (7 sources) Start: take 1 tablet by mouth once daily Multivitamin Active 1 TAB PO Daily April 23, 2024 12:00am mcqvknlincts-vnuqmgrx-qu tein (MULTIVITAMIN 50 PLUS) tablet (1 source) [...] 32 mg oral tablet (20 sources) Start: 02-11-2025 take 2 tablets by mouth in the morning, then take 2 tablets by mouth in the evening, then take 2 tablets by mouth at bedtime PHENobarbital (Luminal) 32.4 MG tablet Indications: Seizure disorder (CMS/HCC) Take 2 tablets (64.8 mg) by mouth in the morning and 2 tablets (64.8 mg) in the evening and 2 tablets (64.8 mg) before bedtime. 180 tablet 5 02/11/2025 Active Start: 09-25-2024 End: 11-28-2024 take 2 [...] oral capsule (20 sources) Anti-epileptic Agent Start: 02-18-2025 End: 02-18-2026 take 2 capsules by mouth in the morning, then take 2 capsules by mouth in the evening, then take 2 capsules by mouth at bedtime phenytoin ER (Dilantin) 100 MG capsule Indications: Seizure disorder (CMS/HCC) TAKE 2 CAPSULES BY MOUTH IN THE MORNING, then TAKE 2 CAPSULES BY MOUTH IN THE EVENING and then TAKE 2 CAPSULES BY MOUTH BEFORE bedtime 1080 capsule 2 02/18/2025 02/18/2026 Active Start: 09-07-2024 take 200 mg by mouth [...] 1 capsule Orally every 12 hrs Active predniSONE 50 mg oral tablet (7 sources) [...] Discontinued 20 MG PO Twice daily 10 5 August 16, 2024 12:00am September 07, 2024 3:02pm spironolactone 25 mg oral tablet (3 sources) Aldosterone Antagonist Start: 02-20-2025 take 1 tablet by mouth once daily spironolactone (Aldactone) 25 MG tablet Indications: Bilateral leg edema Take 1 tablet (25 mg) by mouth Daily 30 tablet 3 02/20/2025 Active triamcinolone acetonide 5 mg/ml topical cream (1 source) Corticosteroid Start: 02-21-2025 triamcinolone (Kenalog) 0.5 % cream Indications: Dyshidrotic eczema Apply topically 3 (three) times a day 60 g 2 02/21/2025 Active vitamin b12 5 mg oral capsule (16 [...] 4 tablet 11/27/2024 12/19/2024 Discontinued (Therapy completed) 24 hr isosorbide mononitrate 30 mg extended release oral tablet (6 sources) Nitrate Vasodilator Start: 01-13-2025 End: 05-13-2025 take 1 tablet by mouth in the morning, then take 1 tablet by mouth every twenty-four hours isosorbide mononitrate ER (Imdur) 30 MG 24 hr tablet Take 30 mg by mouth in the morning. 01/13/2025 02/20/2025 Discontinued losartan potassium 25 mg oral tablet (6 sources) Angiotensin 2 Receptor Daisy Start: 01-13-2025 End: 05-13-2025 take 1 tablet by mouth in the morning losartan (Cozaar) 25 MG tablet Take 25 mg by mouth in the morning. 01/13/2025 02/20/2025 Discontinued Mens Multivitamin (2 sources) Mens Multivitami n Not-Taking Mens Multivitami n Active potassium chloride 20 meq extended release oral tablet (20 sources) Start: 06-06-2024 End: 02-20-2025 take 1 tablet by mouth once daily potassium chloride CR (K-Tab) 20 MEQ ER tablet Indications: Bilateral leg edema take 1 tablet by mouth once daily if needed 30 tablet 3 06/06/2024 02/20/2025 Discontinued Start: 04-23-2024 Potassium Chlo ride Active MEQ PO April 23, 2024 12:00am Problems Active Problems Problem Classification Problem Date [...] disease (20 sources) Atherosclerotic heart disease of [place] coronary artery without angina pectoris; Translations: [Coronary [...] epilepticus] Onset: 06-22-2022 04-23-2024 Chronic Essential hypertension (7 sources) Essential (primary) hypertension; Translations: [Benign essential hypertension] Onset: 01-22-2025 Chronic Fracture of upper [...] 08-16-2022 04-23-2024 Chronic Other aftercare (1 source) long term 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 care registered nurse (current) use of aspirin; Translations: [[facility] CURRENT USE OF ASPIRIN] Onset: 12-27-2022 Episodic Other aftercare (1 source) Other penitentiary (current) drug therapy; Translations: [OT [facility] CURRENT DRUG THERAPY] Onset: 12-27-2022 Episodic Other [...] bilateral] 04-23-2024 Episodic Other lower respiratory disease (11 sources) Dyspnea on exertion; Translations: [Shortness of [...] [Pain in left elbow] 05-15-2024 Episodic Other nutritional; endocrine; and metabolic disorders (1 source) Hypocalcemia; Translations: [HYPOCALCEMIA] Onset: 11-07-2022 Chronic Other nutritional; endocrine; and metabolic disorders (1 source) Obesity, unspecified; Translations: [OBESITY UNSPECIFIED] Onset: 10-04-2022 Chronic Other nutritional; endocrine; and metabolic disorders (20 sources) Obesity; Translations: [Obesity, unspecified] Onset: 01-12-2021 04-23-2024 Chronic Other nutritional; endocrine; and metabolic disorders (19 sources) Severe obesity; Translations: [Class 3 severe obesity due to excess calories with serious comorbidity and body mass index (BMI) of 40.0 to 44.9 in adult ([facility])] Onset: 01-12-2021 11-22-2024 Chronic Other upper [...] current use of drug therapy; Translations: [Other manager intermediate (current) drug therapy] Onset: 11-29-2023 11-29-2023 Episodic Other aftercare (20 sources) Post-discharge follow-up; Translations: [Encounter for follow-up examination after completed treatment for conditions other than malignant neoplasm] Onset: 01-11-2024 Resolved: 02-21-2024 02-21-2024 Episodic Other aftercare (1 source) Patient encounter status; Translations: [Other penitentiary (current) drug therapy] Onset: 11-29-2023 11-29-2023 Episodic [...] upper arm] Onset: 05-15-2024 05-15-2024 Episodic Other non-traumatic joint disorders (20 sources) Pain in right knee; Translations: [Right knee pain] Onset: 09-07-2024 09-07-2024 Episodic Other screening for suspected conditions (not [...] [SPRAIN UNS SITE LT KNEE INITIAL] Onset: 10-05-2022 Episodic Syncope (20 sources) Syncope and collapse; Translations: [Syncope and collapse] Onset: 11-07-2022 Resolved: 11-29-2023 Episodic Unclassified (2 sources) Patient encounter status 10-25-2024 Results Test Name Value Interpretation Reference Range Facility RT PULMONARY FUNCTION TESTon 02-27-[address] [address] Respiratory Report Signed Patient: NAZARIO CORTES Jr. MR#: [id number] : 1955 Acct:[id number] Age/Sex: 70 / M ADM Date: 02/22/25 Loc: CARD Attending Dr: Jignesh Gonsalez M.D. Ordering Physician: Jignesh Gonsalez M.D. 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 Findings were considered accurate and reproducible, though several tests were unable to meet ATS standards. Both pre- and post-bronchodilator values utilized for spirometry. Spirometry (based on pre-bronchodilator values): -FEV1/FVC: Normal @ 85% -FEV1: Reduced @ 77% -FVC: Moderately reduced @ 66% -There is no significant bronchodilator response. Lung volumes by plethysmography (based on pre-bronchodilator values): -RV: Normal @ 97% -TLC: Low normal @ 80% Diffusion capacity: -DLCO: Moderate reduction @ 58% when corrected for Hb 13.7g/dL Impressions: -Spirometry suggests moderate obstruction, though TLC is low normal. Moderate diffusion capacity. This pattern could be seen in ILD or cardiopulmonary vascular disease, or secondary to morbid obesity (stated BMI 40.9) obscuring an underlying obstructive lung disease such as emphysema. Clinical correlation required. Electronically Signed On 02-27-2025 13:57:13 EDT by Perfecto Portillo Dictated By: Perfecto Portillo D.O. Signed By: 02/27/25 1357 DD/ 1252 TD/TT: Circle Shear Operator: [facility] Radiology, Radiologist, - 02/27/2025 [place] [address] Respiratory Report Signed Patient: NAZARIO CORTES Jr. MR#: [id number] : 1955 Acct:[id number] Age/Sex: 70 / M ADM Date: 02/22/25 Loc: CARD Attending Dr: Jignesh Gonsalez M.D. Ordering Physician: Jignesh Gonsalez M.D. Date of Service: 02/22/25 Procedure(s): RT pulmonary function test Accession Number(s): [id number] cc: [facility] Test Date: 2025-02-22 Pat Name: NAZARIO CORTES Department: Room: - Gender: Male Mica Miner Blasting: Tommy Fitch RRT : 1955 Requested By: JIGNESH GONSALEZ Order Number: [id number] Reading MD: Perfecto Portillo Interpretive Statements Pulmonary function testing was completed according to ATS criteria. Findings were considered accurate and reproducible, though several tests were unable to meet ATS standards. Both pre- and post-bronchodilator values utilized for spirometry. Spirometry (based on pre-bronchodilator values): -FEV1/FVC: Normal @ 85% -FEV1: Reduced @ 77% -FVC: Moderately reduced @ 66% -There is no significant bronchodilator response. Lung volumes by plethysmography (based on pre-bronchodilator values): -RV: Normal @ 97% -TLC: Low normal @ 80% Diffusion capacity: -DLCO: Moderate reduction @ 58% when corrected for Hb 13.7g/dL Impressions: -Spirometry suggests moderate obstruction, though TLC is low normal. Moderate diffusion capacity. This pattern could be seen in ILD or cardiopulmonary vascular disease, or secondary to morbid obesity (stated BMI 40.9) obscuring an underlying obstructive lung disease such as emphysema. Clinical correlation required. Electronically Signed On 02-27-2025 13:57:13 EDT by Perfecto Portillo Dictated By: Perfecto Portillo D.O. Signed By: 02/27/25 1357 DD/ 1252 TD/TT: Circle Shear Operator: [facility] RT PULMONARY FUNCTION TESTOr dered By: Radiologist Radiology on 02-27-2025 [facility] [employer] Work Phone: RT PULMONARY FUNCTION TESTon 02-22-2025 Radiology Study observation (narrative) [facility] Healthcare Office Visiton 01-22-2025 Follow-up visit [id number] Nazario Cortes Jr. 1955 M Date Provider Department Center 01/22/2025 [address] Family History Problem Relation Age of Onset Supraventricular tachycardia Mother Stroke Father Kidney cancer Sister Diabetes Sister COPD Brother Family Status - Relation Status Age at Mother Father Sister Brother Level of Service:53063 ID OFFICE/OUTPATIENT ESTABLISHED LOW MDM 20 MIN Normal [facility] BASIC METABOLIC PANELon 12-23 Anion gap [Moles/Vol] 11 mmol/L Normal 7-20 [facility] Comment on above: Performed By: #### L [id number] #### [facility] (AKER) [address] [place] [address] Calcium [Mass/Vol] 8.8 mg/dL Normal 8.6-10.3 [facility] Comment on above: Performed By: #### L [id number] #### [facility] (AKER) [address] [place] [address] Chloride [Moles/Vol] 104 mmol/L Normal 98-107 [facility] Comment on above: Performed By: #### L [id number] #### [facility] (BEAKER) [address] [place] [address] CO2 [Moles/Vol] 24 mmol/L Normal 21-31 [facility] Comment on above: Performed By: #### L [id number] #### [facility] (AKER) [address] [place] [address] Creatinine [Mass/Vol] 0.81 mg/dL Normal 0.70-1.30 [facility] Comment on above: Performed By: #### L [id number] #### [facility] ([facility]) [address] [place] [address] GLOMERULAR FILTRATION RATE ML/MIN/1.73 SQ M.PREDICTED 95.4 mL/min/1.73m*2 Normal >60.0 [facility] Comment on above: Result Comment: [facility]???s estimated glomerular filtration rate (eGFR) will no [...] individuals. Performed By: #### L [id number] #### [facility] ([facility]) [address] [place] [address] Glucose [Mass/Vol] 114 mg/dL High 70-100 [facility] Comment on above: Performed By: #### L [id number] #### [facility] ([facility]) [address] [place] [address] Potassium [Moles/Vol] 4.2 mmol/L Normal 3.5-5.1 [facility] Comment on above: Performed By: #### L [id number] #### [facility] ([facility]) [address] [place] [address] Sodium [Moles/Vol] 135 mmol/L Low 136-145 [facility] Comment on above: Performed By: #### L [id number] #### [facility] ([facility]) [address] [place] [address] Urea nitrogen [Mass/Vol] 23 mg/dL Normal 7-25 [facility] Comment on above: Performed By: #### L [id number] #### [facility] ([facility]) [address] [place] [address] UREA NITROGEN/CREATININE (MASS RATIO) IN SER/PLAS 28.4 Normal [facility] Comment on above: Performed By: #### L [id number] #### [facility] ([facility]) [address] [place] [address] FOLATEon 01-13-2025 FOLATE (NG/ML) IN SER/PLAS 20.54 ng/mL Normal 6.6-1000 [facility] Comment on above: Performed By: #### L [id number] #### [facility] ([facility]) [address] [place] [address] NURSNOTEon 01-13-2025 NURSNOTE Pt discharged with a ll belongings, discharge paperwork, and questions answered to pt's satisfaction. Normal [facility] VITAMIN B12on 01-13-2025 Cobalamin (Vitamin B12) [Mass/Vol] 353 pg/mL Normal 180-914 [facility] Comment on above: Result Comment: REFE RENCE RANGES: 180-914 pg/mL Normal 145-179 pg/mL Indeterminate <145 pg/mL Deficient Performed By: #### L [id number] #### [facility] [address] [place] [address] 30on 01-12-2025 30 The patient is Moderately [...] baseline comfort level Outcome: Progressing Flowsheets (Taken 01/12/2025 2245) Verbalizes/displays adequate comfort level or baseline comfort [...] from fall injury Outcome: Progressing Flowsheets (Taken 01/12/2025 1947) Free from fall injury: Assess patient frequently for physical needs Identify cognitive and physical deficits and behaviors that affect risk of falls [place] fall precautions as indicated by assessment Educate [...] and prevent overall improvement and discharge Normal [facility] 30 The patient is Moderately Stable - Low risk of patient condition declining or worsening The patient's goals for the shift include comfort, rest The clinical goals for the shift include vss, safety Normal [facility] B-TYPE NATRIURETIC PEPTIDEon 01-12-2025 Natriuretic peptide B (Bld) [Mass/Vol] 34 pg/mL Normal 0-100 [facility] Comment on above: Performed By: #### L [id number] #### [facility] (BEAKER) [address] [place] [address] BASIC METABOLIC PANELon 12-23 Anion gap [Moles/Vol] 10 mmol/L Normal 7-20 [facility] Comment on above: Performed By: #### L [id number] #### [facility] (BEAKER) [address] [place] [address] Calcium [Mass/Vol] 8.4 mg/dL Low 8.6-10.3 [facility] Comment on above: Performed By: #### L [id number] #### [facility] [address] [place] [address] Chloride [Moles/Vol] 101 mmol/L Normal 98-107 [facility] Comment on above: Performed By: #### L [id number] #### [facility] ([facility]) [address] [place] [address] CO2 [Moles/Vol] 26 mmol/L Normal 21-31 [facility] Comment on above: Performed By: #### L [id number] #### [facility] ([facility]) [address] [place] [address] Creatinine [Mass/Vol] 0.79 mg/dL Normal 0.70-1.30 [facility] Comment on above: Performed By: #### L [id number] #### [facility] ([facility]) [address] [place] [address] GLOMERULAR FILTRATION RATE ML/MIN/1.73 SQ M.PREDICTED 96.2 mL/min/1.73m*2 Normal >60.0 [facility] Comment on above: Result Comment: [facility]???s estimated glomerular filtration rate (eGFR) will no [...] individuals. Performed By: #### L [id number] #### [facility] [address] [place] [address] Glucose [Mass/Vol] 114 mg/dL High 70-100 [facility] Comment on above: Performed By: #### L [id number] #### [facility] ([facility]) [address] [place] [address] Potassium [Moles/Vol] 4.2 mmol/L Normal 3.5-5.1 [facility] Comment on above: Performed By: #### L [id number] #### [facility] (BEAKER) [address] [place] [address] Sodium [Moles/Vol] 133 mmol/L Low 136-145 [facility] Comment on above: Performed By: #### L [id number] #### [facility] ([facility]) [address] [place] [address] Urea nitrogen [Mass/Vol] 20 mg/dL Normal 7-25 [facility] Comment on above: Performed By: #### L [id number] #### [facility] ([facility]) [address] [place] [address] UREA NITROGEN/CREATININE (MASS RATIO) IN SER/PLAS 25.3 Normal [facility] Comment on above: Performed By: #### L [id number] #### [facility] ([facility]) [address] [place] [address] CBCon 01-12-2025 Erythrocyte distribution width (RBC) [Ratio] 13.3 % Normal 11.5-15.0 [facility] Comment on above: Performed By: #### L [id number] #### [facility] ([facility]ER) [address] [place] [address] ERYTHROCYTE MEAN CORPUSCULAR HEMOGLOBIN CONCENTRATION (G/DL) BY AUTOMATED 32.7 g/dL Normal 32.0-35.0 [facility] Comment on above: Performed By: #### L [id number] #### [facility] (BEAKER) [address] [place] [address] Hematocrit (Bld) [Volume fraction] 41.0 % Normal 39.0-55.0 [facility] Comment on above: Performed By: #### L [id number] #### [facility] (BE[facility]ER) [address] [place] [address] Hemoglobin (Bld) [Mass/Vol] 13.4 g/dL Normal 13.0-17.0 [facility] Comment on above: Performed By: #### L [id number] #### [facility] ([facility]) [address] [place] [address] MCH (RBC) [Entitic mass] 32.8 pg Normal 27.0-33.0 [facility] Comment on above: Performed By: #### L [id number] #### [facility] ([facility]) [address] [place] [address] MCV (RBC) [Entitic vol] 100.2 fL High 82.0-98.0 [facility] Comment on above: Performed By: #### L [id number] #### [facility] ([facility]) [address] [place] [address] PLATELETS (10*3/UL) IN BLOOD AUTOMATED COUNT 197 10*3/uL Normal 150-400 [facility] Comment on above: Performed By: #### L [id number] #### [facility] ([facility]) [address] [place] [address] RBC (Bld) [#/Vol] 4.09 10*6/uL Low 4.20-5.70 [facility] Comment on above: Performed By: #### L [id number] #### [facility] ([facility]) [address] [place] [address] WBC (Bld) [#/Vol] 8.31 10*3/uL Normal 4.00-10.60 [facility] Comment on above: Performed By: #### L [id number] #### [facility] ([facility]) [address] [place] [address] HEMOGLOBIN A1Con 01-12-2025 Glucose [Mass/Vol] 108 mg/dL Normal [facility] Comment on above: Performed By: #### L [id number] #### [facility] ([facility] [address] [place] [address] HbA1c (Bld) [Mass fraction] 5.4 % Normal 4.0-6.0 [facility] Comment on above: Performed By: #### L [id number] #### [facility] ([facility]) [address] [place] [address] HEPATIC FUNCTION PANELon Albumin [Mass/Vol] 3.7 g/dL Normal 3.5-5.7 [facility] Comment on above: Performed By: #### L [id number] ####[facility] ([facility])[address] [place] [address] ALP [Catalytic activity/Vol] 152 U/L High 34-104 [facility] Comment on above: Performed By: #### L [id number] ####[facility] ([facility])[address] [place] [address] ALT [Catalytic activity/Vol] 20 U/L Normal 7-52 [facility] Comment on above: Performed By: #### L [id number] ####[facility] ([facility])[address] [place] [address] AST [Catalytic activity/Vol] 25 U/L Normal 13-39 [facility] Comment on above: Performed By: #### L [id number] ####[facility] ([facility])[address] [place] [address] Bilirubin [Mass/Vol] 0.5 mg/dL Normal 0.3-1.0 [facility] Comment on above: Performed By: #### L [id number] ####[facility] ([facility])[address] [place] [address] Magnesium [Mass/Vol] 0.1 mg/dL Normal 0-0.2 [facility] Comment on above: Performed By: #### L [id number] ####[facility] ([facility])[address] [place] [address] Protein [Mass/Vol] 8.1 g/dL Normal 6.0-8.3 [facility] Comment on above: Performed By: #### L [id number] ####[facility] ([facility])[address] [place] [address] LIPID PANELon 01-12-2025 CHOL/HDL 3.3 mg/dL Normal [facility] Comment on above: Performed By: #### L [id number] ####[facility] ([facility])[address] [place] [address] Cholesterol [Mass/Vol] 140 mg/dL Normal 120-200 [facility] Comment on above: Performed By: #### L [id number] ####[facility] ([facility])[address] [place] [address] Magnesium [Mass/Vol] 230 mg/dL High 40-149 [facility] Comment on above: Result Comment: TRIG LYCERIDE REFERENCE RANGE: 20 YEARS AND OLDER CARDIOVASCULAR RISK LESS THAN 150 mg/dL LOW RISK 150 TO 199 mg/dL BORDERLINE RISK 200 mg/dL AND GREATER HIGH RISK Performed By: #### L [id number] ####[facility] ([facility] [place] [address] Magnesium [Mass/Vol] 51 mg/dL Normal 0-160 [facility] Comment on above: Performed By: #### L [id number] ####[facility] ([facility])[address] [place] [address] Magnesium [Mass/Vol] 43 mg/dL Normal 23-92 [facility] Comment on above: Performed By: #### L [id number] ####[facility] ([facility])[address] [place] [address] NON HDL CHOL. (LDL+VLDL) 97 Normal [facility] Comment on above: Performed By: #### L [id number] ####[facility] ([facility])[address] [place] [address] TOTAL VLDL-C 46 mg/dL High 0-40 [facility] Comment on above: Performed By: #### L [id number] ####[facility] ([facility])[address] [place] [address] MAGNESIUMon 01-12-2025 Magnesium [Mass/Vol] 1.9 mg/dL Normal 1.9-2.7 [facility] Comment on above: Performed By: #### L [id number] #### [facility] ([facility]) [address] [place] [address] 30on 01-11-2025 30 The patient is Moderately [...] and maintained or improved Outcome: Progressing Normal [facility] 30 Daily Case Managemen t Update Multidisciplinary rounds have been completed. Barriers to Discharge: Patient presented to [facility] with chest pain, and was transferred to [facility] for heart cath. Patient to go for [...] of Consultation Consultation and Management 01/11/25136 Normal [facility] 30 The patient is Moderately Stable - [...] with appropriate resources Outcome: Progressing Flowsheets (Taken 01/11/202556) Discharge to home or other facility with appropriate resources: Identify barriers to discharge with patient and caregiver Arrange for needed discharge resources and transportation as appropriate Identify discharge learning needs (meds, wound care, etc) Problem: Chronic Conditions and Co-morbidities Goal: Patient's chronic conditions and co-morbidity symptoms are monitored and maintained or improved Outcome: Progressing Flowsheets (Taken 01/11/202556) Care Plan - Patient's Chronic Conditions and [...] and prevent overall improvement and discharge Normal [facility] 30 The patient is Moderately Stable - Low risk of patient condition declining or worsening The patient's goals for the shift include Comfort The clinical goals for the shift include VSS Normal [facility] ANEPrateek 01-11-2025 ANES -- Attestation signed by Arnaud Lyons MD at 01/11/2025 1:02 PM Arnaud Lyons MD, MPH, [facility], [facility], [facility] Interventional Cardiology Pager Email: [email or web address] Patient: Nazario Cortes Procedure Information Date/Time: 01/11/25 4117 Procedure: Coronary angiography Location: [facility] L[facility]ER 3 / [facility] VASCULAR LAB (Cath) Providers: Arnaud Lyons [...] fellow and attending. Additional Equipment Requests Normal [facility] APTTon 01-11-2025 ACTIVATED PARTIAL THROMBOPLASTIN TIME IN PPP BY COAGULATION ASSAY 26.3 Seconds Normal 25.0-35.0 [facility] Comment on above: Order Comment: Basel ine aPTT before initiating heparin infusion. Result Comment: Clin ical significance of the APTT is questionable in the presence of heparin. Performed By: #### L [id number] #### [facility] ([facility]) [address] [place] [address] BASIC METABOLIC PANELon 12-23 Anion gap [Moles/Vol] 9 mmol/L Normal 7-20 [facility] Comment on above: Performed By: #### L [id number] #### [facility] ([facility]) [address] [place] [address] Calcium [Mass/Vol] 8.3 mg/dL Low 8.6-10.3 [facility] Comment on above: Performed By: #### L [id number] #### [facility] ([facility] [address] [place] [address] Chloride [Moles/Vol] 103 mmol/L Normal 98-107 [facility] Comment on above: Performed By: #### L [id number] #### [facility] ([facility] [address] [place] [address] CO2 [Moles/Vol] 26 mmol/L Normal 21-31 [facility] Comment on above: Performed By: #### L [id number] #### [facility] ([facility] [address] [place] [address] Creatinine [Mass/Vol] 0.81 mg/dL Normal 0.70-1.30 [facility] Comment on above: Performed By: #### L [id number] #### [facility] ([facility]) [address] [place] [address] GLOMERULAR FILTRATION RATE ML/MIN/1.73 SQ M.PREDICTED 95.4 mL/min/1.73m*2 Normal >60.0 [facility] Comment on above: Result Comment: [facility]???s estimated glomerular filtration rate (eGFR) will no [...] group of individuals. Performed By: #### L [id number] #### [facility] ([facility]) [address] [place] [address] Glucose [Mass/Vol] 105 mg/dL High 70-100 [facility] Comment on above: Performed By: #### L [id number] #### [facility] ([facility]) [address] [place] [address] Potassium [Moles/Vol] 4.1 mmol/L Normal 3.5-5.1 [facility] Comment on above: Performed By: #### L [id number] #### [facility] ([facility]) [address] [place] [address] Sodium [Moles/Vol] 134 mmol/L Low 136-145 [facility] Comment on above: Performed By: #### L [id number] #### [facility] ([facility]) [address] [place] [address] Urea nitrogen [Mass/Vol] 18 mg/dL Normal 7-25 [facility] Comment on above: Performed By: #### L [id number] #### [facility] ([facility]) [address] [place] [address] UREA NITROGEN/CREATININE (MASS RATIO) IN SER/PLAS 22.2 Normal [facility] Comment on above: Performed By: #### L [id number] #### [facility] ([facility]) [address] [facility] [place] [address] CBC WITH AUTO DIFFERENTIALon 01-11-2025 Basophils (Bld) [#/Vol] 0.08 10*3/uL Normal 0.00-0.20 [facility] Comment on above: Performed By: #### L [id number] #### [facility] ([facility]) [address] [place] [address] Basophils/100 WBC (Bld) 0.9 % Normal 0.0-1.0 [facility] Comment on above: Performed By: #### L [id number] #### [facility] ([facility]) [address] [place] [address] Eosinophils (Bld) [#/Vol] 0.56 10*3/uL High 0.00-0.50 [facility] Comment on above: Performed By: #### L [id number] #### [facility] ([facility]) [address] [place] [address] Eosinophils/100 WBC (Bld) 6.5 % High 0.0-6.0 [facility] Comment on above: Performed By: #### L [id number] #### [facility] ([facility]) [address] [place] [address] Erythrocyte distribution width (RBC) [Ratio] 13.5 % Normal 11.5-15.0 [facility] Comment on above: Performed By: #### L [id number] #### [facility] ([facility]) [address] [place] [address] ERYTHROCYTE MEAN CORPUSCULAR HEMOGLOBIN CONCENTRATION (G/DL) BY AUTOMATED 32.7 g/dL Normal 32.0-35.0 [facility] Comment on above: Performed By: #### L [id number] #### [facility] ([facility]) [address] [place] [address] Hematocrit (Bld) [Volume fraction] 39.8 % Normal 39.0-55.0 [facility] Comment on above: Performed By: #### L [id number] #### [facility] ([facility]) [address] [place] [address] Hemoglobin (Bld) [Mass/Vol] 13.0 g/dL Normal 13.0-17.0 [facility] Comment on above: Performed By: #### L [id number] #### [facility] ([facility]) [address] [place] [address] Immature granulocytes (Bld) [#/Vol] 0.06 10*3/uL Normal 0.00-0.20 [facility] Comment on above: Performed By: #### L [id number] #### [facility] ([facility]) [address] [place] [address] Immature granulocytes/100 WBC (Bld) 0.7 % Normal 0.0-1.0 [facility] Comment on above: Performed By: #### L [id number] #### [facility] ([facility]) [address] [place] [address] Lymphocytes (Bld) [#/Vol] 1.53 10*3/uL Normal 1.20-4.00 [facility] Comment on above: Performed By: #### L [id number] #### [facility] ([facility]) [address] [place] [address] Lymphocytes/100 WBC (Bld) 17.7 % Low 20.0-45.0 [facility] Comment on above: Performed By: #### L [id number] #### [facility] ([facility]) [address] [place] [address] MCH (RBC) [Entitic mass] 33.3 pg High 27.0-33.0 [facility] Comment on above: Performed By: #### L [id number] #### [facility] [address] [place] [address] MCV (RBC) [Entitic vol] 102.1 fL High 82.0-98.0 [facility] Comment on above: Performed By: #### L [id number] #### [facility] ([facility]) [address] [place] [address] Monocytes (Bld) [#/Vol] 0.78 10*3/uL Normal 0.10-1.00 [facility] Comment on above: Performed By: #### L [id number] #### [facility] ([facility]) [address] [place] [address] Monocytes/100 WBC (Bld) 9.0 % Normal 5.0-12.0 [facility] Comment on above: Performed By: #### L [id number] #### [facility] ([facility]) [address] [place] [address] Neutrophils (Bld) [#/Vol] 5.62 10*3/uL Normal 1.60-7.60 [facility] Comment on above: Performed By: #### L [id number] #### [facility] ([facility]) [address] [place] [address] Neutrophils/100 WBC (Bld) 65.2 % Normal 40.0-72.0 [facility] Comment on above: Performed By: #### L [id number] #### [facility] ([facility]) [address] [place] [address] NRBC (PER 100 WBCS) BY AUTOMATED COUNT 0.0 % Normal 0 [facility] Comment on above: Performed By: #### L [id number] #### [facility] ([facility]) [address] [place] [address] PLATELETS (10*3/UL) IN BLOOD AUTOMATED COUNT 187 10*3/uL Normal 150-400 [facility] Comment on above: Performed By: #### L [id number] #### [facility] [address] [place] [address] RBC (Bld) [#/Vol] 3.90 10*6/uL Low 4.20-5.70 [facility] Comment on above: Performed By: #### L [id number] #### [facility] ([facility]) [address] [place] [address] WBC (Bld) [#/Vol] 8.63 10*3/uL Normal 4.00-10.60 [facility] Comment on above: Performed By: #### L [id number] #### [facility] ([facility]) [address] [place] [address] CONSULTon 01-11-2025 CONSULT -- Attestation signed by Darrell Thomas MD at 01/11/2025 5:04 PM By using [...] at least mild coronary artery disease at [facility]. Considering his current presentation we will obtain an echocardiogram. He already underwent cardiac angiogram on 01/11 which showed moderate but heavily calcified triple-vessel disease. He will also need aggressive medical therapy with aspirin, statin and likely colchicine as well in light of the recently published COL C OT trial. Darrell Thomas MD, ScM, MSc Cardiac Email Administrator Email: [email or web address] Cardiology Consult Note Reason for Consult: unstable angina HPI: Nazario Cortes is a 69 y.o. male with a past medical history significant for reported coronary artery disease (last cath showed 20-30% stenosis in 2008 at [facility]), hyperlipidemia, depression, and seizures. Reported [...] chest pain. He was initially brought to [facility] and subsequently transferred to [facility] for cardiac catheterization. At present, the patient reports mild chest pain but denies shortness of breath, nausea, vomiting, dizziness, or palpitations. He reports a smoking history but quit in 1996. Blood pressure 142/84, heart rate 70s, EKG sinus rhythm with 1st degree AV block ID interval 210. Cardiology ROS: Negative except as [...] 40 mg, oral, Daily PRN HYDROcodone-acetaminop hen ([place]) 5-325 mg tablet take 1 tablet by mouth four times a day if needed for severe pain for up to 7 days meclizine (Antivert) 25 mg tablet take 1 tablet by mouth four times a day if needed for dizziness methocarbamol (Robaxin) 750 mg tablet take 1 tablet by mouth four times a day if needed for muscle spasm xojegqoihaod-idjl-wyqq rals-folic acid (Multivitamin 50 Plus) tablet Every 24 hours nitroglycerin (NITROSTAT) 0.3 mg, sublingual PHENobarbital (LUMINAL) 64.8 mg, oral, 3 times daily RT phenytoin ER (Dilantin) 100 mg capsule take 2 capsules by mouth three times a day potassium chloride CR (K-Tab) 20 mEq ER table (more content not included)... [facility] 01-11-2025 -- Attestation signed by Arnaud Lyons MD [...] me. Additional Comments: Arnaud Lyons MD, MPH, [facility], [facility], [facility] Interventional Cardiology Pager Email: [email or web address] H&P reviewed. The patient was examined and there are no changes to the H&P. Will proceed with coronary angiogram for further assessment. Procedure's details, risks and benefits discussed with the patient and he's agreeable. Normal [facility] PLATELET COUNTon 01-11-2025 PLATELETS (10*3/UL) IN BLOOD AUTOMATED COUNT 177 10*3/uL Normal 150-400 [facility] Comment on above: Performed By: #### L [id number] #### [facility] ([facility]) [address] [place] [address] TROPONIN Ion 01-11-2025 Troponin I.cardiac [Mass/Vol] 0.01 ng/mL Normal 0.00-0.04 [facility] Comment on above: Performed By: #### L [id number] #### [facility] ([facility]) [address] [place] [address] Troponin I.cardiac [Mass/Vol] 0.01 ng/mL Normal 0.00-0.04 [facility] Comment on above: Performed By: #### L [id number] #### [facility] ([facility]) [address] [place] [address] Troponin I.cardiac [Mass/Vol] 0.01 ng/mL Normal 0.00-0.04 [facility] Comment on above: Performed By: #### L [id number] #### [facility] ([facility]) [address] [place] [address] No Panel InformationOrdered By: Fay Adhikari on 11-27-2024 [facility] Radiology Study observation (narrative) [facility] XR knee RT 4V*on 10-17-2024 XR knee RT 4V* [facility] Main [address] [address] XRay Report Signed Patient: Nazario Cortes Jr MR#: [id number] : 1955 Acct:[id number] Age/Sex: 69 / M ADM Date: 10/17/24 Loc: XDUCLY Room: Type: [facility] Attending Dr: Yancy Lawson APRN Copies to: [...] Hoa Lockwood M.D.10/17/2024 2:40 PM Dictation Location: [place] [address] Transcribed By: [facility] 10/17/24 1440 Dictated By: Hoa Lockwood MD 10/17/24 1438 Signed By: 10/17/24 1440 Normal [facility] XR knee RT 4V*on 09-07-2024 XR knee RT 4V* [facility] Main [address] [address] XRay Report Signed Patient: Nazario Cortes Jr MR#: [id number] : 1955 Acct:[id number] Age/Sex: 69 / M ADM Date: 09/07/24 Loc: XDUCLY Room: Type: [facility] Attending Dr: oJslyn Garcia APRN Copies to: Joslyn Garcia APRN [...] Ching Jr., D.O.09/07/2024 4:15 PM Dictation Location: [place] [address] Transcribed By: [facility] 09/07/241614 Dictated By: Bar Ching Jr, DO 09/07/241613 Signed By: 09/07/241614 Normal [facility] Influenza virus A and B and SARS-CoV-2 (COVID-19) RNA panel - Respiratory system specon 08-16-2024 Influenza virus A and B RNA and SARS-CoV-2 (COVID-19) N gene panel ALEX+probe (Resp) Negative [facility] - Microbiology an d Antimicrobial susceptibilityon 08-16-2024 SARS-CoV-2 (COVID-19) RNA ALEX+probe Ql (Unsp spec) Negative [facility] No Panel Informationon 08-16 POC Influenza B (ALEX) Negative [facility] Follow-Upon 08-08-2024 Follow-Up [id number] Nazario Cortes 1955 M Date Provider Department Center 08/08/2024 CORNELIO NEGRON [facility] SURG [place] Family History Problem Relation Age of Onset Supraventricular tachycardia Mother Stroke Father Kidney cancer Sister Diabetes Sister COPD Brother Family Status - Relation Status Age at Mother Father Sister Brother Level of Service:[id number] ID OFFICE/OUTPATIENT ESTABLISHED MOD MDM 30 MIN Reason for Visit and Comments: Follow-up [032419] - Pt is here for a follow up visit for Lumbar Stenosis. Normal [facility] 36on 07-30-2024 36 Talked to patient. Advised [...] given his ongoing issues. Verbalizes understanding. Normal [facility] Telephoneon 07-30-2024 Telephone [id number] Nazario Cortes 1955 M Date Provider Department Center 07/30/2024 CORNELIO NEGRON [facility] SURG [place] Family History Problem Relation Age of Onset Supraventricular tachycardia Mother Stroke Father Kidney cancer Sister Diabetes Sister COPD Brother Family Status - Relation Status Age at Mother Father Sister Brother Normal [facility] MR CERVICAL SPINE W AND WO C [facility] 07-26-2024 MR CERVICAL SPINE W AND WO [...] BOWMAN MD. Not Vldtd Invalid Interpretation Code [facility] XR elbow LT min 3V*on 2023 XR elbow LT min 3V* [facility] Main [place] [address] [place] [address] XRay Report Signed Patient: Nazario Cortes Jr MR#: [id number] : 1955 Acct:[id number] Age/Sex: 69 / M ADM Date: 05/15/24 Loc: XDUCLY Room: Type: [facility] Attending Dr: Joslyn Garcia MANAGER INFORMATION Copies to: Joslyn Garcia APRN Ordering Provider: [...] Zain Fitzpatrick M.D.05/15/2024 4:23 PM Dictation Location: [place] [address] Transcribed By: [facility] 05/15/241622 Dictated By: Zain Fitzpatrick DO 05/15/24 162 Signed By: 05/15/24 162 Normal [facility] Orders Onlyon 04-11-2024 Orders Only [id number] Nazario Cortes 1955 M Date Provider Department [place] 04/11/2024 [id number], HISTORICAL CARD [facility] Family History Problem Relation Age of Onset Supraventricular tachycardia Mother Stroke Father Kidney cancer Sister Diabetes Sister COPD Brother Family Status - Relation Status Age at Mother Father Sister Brother Normal [facility] US CAROTID ART BILon 023 US CAROTID [...] by: KELL BLANDON Date: 2023-01-11 08:42 Normal [facility] ECHOCARDIO M/2D COMPLETEon 0 01-07-2023 ECHOCARDIO M/2D COMPLETE Patient: NAZARIO CORTES Exam Date: 01/07/2023 : 1955 Gender:M Ordering : DR JIGNESH GONSALEZ . Admission #: [id number] Family : Order #: [id number] CLICK HERE TO VIEW EXAM ECHOCARDIOGRAM REPORT [...] Smith M.D. on 01/11/2023 at 18:23 Normal [facility] XR ELBOW LT MIN 3 [...] VIDAL FRASER Date: 2022-12-24 20:23 Normal [facility] XR HIP LT 2 3V W PELVISon XR HIP LT 2 3V W PELVIS EXAM: XR HIP LT 2 3V W PELVIS HISTORY: Bone injury COMPARISON: None. TECHNIQUE: 3 views of the left hip FINDINGS: No acute fracture is seen. Joint alignment is normal. Joint spaces are preserved. Soft tissues appear unremarkable. IMPRESSION: No acute fracture or malalignment. Electronically authenticated by: VIDAL KRYSTAL Date: 2022-12-24 20:21 Normal [facility] XR HUMERUS LT MIN 2Von 12-24 XR [...] by: KELL DELANEY Date: 2022-12-24 21:03 Normal [facility] CBC AUTO DIFFon 11-04-2022 BASO # 0.1 103/ul Normal 0.0-0.1 [facility] Comment on above: Performed By: #### B MP, CMREP, LIPID #### [facility] [address] [place] [address] Dr. Jeimy Tenorio Basophils/100 WBC (Bld) 0.9 % Normal 0.2-2.0 [facility] Comment on above: Performed By: #### B MP, CMREP, LIPID #### [facility] [address] [place] [address] [address] Jeimy Tenorio EO # 0.3 103/ul Normal 0.0-0.7 [facility] Comment on above: Performed By: #### B MP, CMREP, LIPID #### [facility] [facility] [address] [place] [address] Dr. Jeimy Tenorio Eosinophils/100 WBC (Bld) 5.2 % Normal 0.9-7.0 [facility] Comment on above: Performed By: #### B MP, CMREP, LIPID #### [facility] [address] [place] [address] Dr. Jeimy Tenorio Erythrocyte distribution width (RBC) [Ratio] 12.9 % Normal 11.0-15.0 [facility] Comment on above: Performed By: #### B MP, CMREP, LIPID #### [facility] [address] [place] [address] Dr. Jeimy Tenorio Hematocrit (Bld) [Volume fraction] 39.5 % Critically low 42.0-54.0 [facility] Comment on above: Performed By: #### B MP, CMREP, LIPID #### [facility] [address] [place] [address] Dr. Jeimy Tenorio Hemoglobin (Bld) [Mass/Vol] 13.1 g/dL Critically low 14.0-18.0 [facility] Comment on above: Performed By: #### B MP, CMREP, LIPID #### [facility] [address] [place] [address] Dr. Jeimy Tenorio IG # 0.03 10e3/ul Normal 0.00-0.03 [facility] Comment on above: Performed By: #### B MP, CMREP, LIPID #### [facility] [address] [place] [address] Dr. Jeimy Tenorio IG % 0.5 % Normal 0.0-0.5 [facility] Comment on above: Performed By: #### B MP, CMREP, LIPID #### [facility] [address] [place] [address] Dr. Jeimy Tenorio LYMPH # 1.5 103/ul Normal 1.2-3.8 [facility] Comment on above: Performed By: #### B MP, CMREP, LIPID #### [facility] [address] [place] [address] Dr. Jeimy Tenorio Lymphocytes/100 WBC (Bld) 22.6 % Normal 20.5-60.0 [facility] Comment on above: Performed By: #### B MP, CMREP, LIPID #### [facility] [address] [place] [address] Dr. Jeimy Tenorio MANUAL DIFF REQ NO Normal [facility] Comment on above: Performed By: #### B MP, CMREP, LIPID #### [facility] [address] [place] [address] Dr. Jeimy Tenorio MCH (RBC) [Entitic mass] 32.8 pg Normal 25.9-34.0 [facility] Comment on above: Performed By: #### B MP, CMREP, LIPID #### [facility] [address] [place] [address] Dr. Jeimy Tenorio MCHC (RBC) [Mass/Vol] 33.2 g/dL Normal 29.9-35.2 [facility] Comment on above: Performed By: #### B MP, CMREP, LIPID #### [facility] [address] [place] [address] Dr. Jeimy Tenorio MCV (RBC) [Entitic vol] 99.0 fL Critically high 80.0-94.0 [facility] Comment on above: Performed By: #### B MP, CMREP, LIPID #### [facility] [address] [place] [address] Dr. Jeimy Tenorio MONO # 0.7 103/ul Normal 0.3-0.8 [facility] Comment on above: Performed By: #### B MP, CMREP, LIPID #### [facility] [address] [place] [address] Dr. Jeimy Tenorio Monocytes/100 WBC (Bld) 10.6 % Normal 1.7-12.0 [facility] Comment on above: Performed By: #### B MP, CMREP, LIPID #### [facility] [address] [place] [address] Dr. Jeimy Tenorio NEUT # 4.0 103/ul Normal 1.4-6.5 [facility] Comment on above: Performed By: #### B MP, CMREP, LIPID #### [facility] [address] [place] [address] Dr. Jeimy Tenorio Neutrophils/100 WBC (Bld) 60.2 % Normal 43.0-75.0 [facility] Comment on above: Performed By: #### B MP, CMREP, LIPID #### [facility] [address] [address] [address] Jeimy Tenorio Platelet mean volume (Bld) [Entitic vol] 9.7 fL Normal 9.5-13.5 [facility] Comment on above: Performed By: #### B MP, CMREP, LIPID #### [facility] [id number] Jeimy Tenorio PLT 176 103/ul Normal 150-450 [facility] Comment on above: Performed By: #### B MP, CMREP, LIPID #### [facility] [address] [address] [address] Jeimy Tenorio RBC 3.99 106/ul Critically low 4.70-6.10 [facility] Comment on above: Performed By: #### B MP, CMREP, LIPID #### [facility] [address] [address] [address] Jeimy Tenorio WBC 6.6 103/ul Normal 4.0-11.0 [facility] Comment on above: Performed By: #### B MP, CMREP, LIPID #### [facility] [id number] Jeimy Tenorio CT HEAD WO CONon [...] is not identified. Electronically authenticated by: ALEJANDRO MILLEREN Date: 2022-11-04 14:08 Normal [facility] Covid-19 PCR (CVDTB)on 10-21 SARS-CoV-2 (COVID-19) RNA ALEX+probe Ql (Unsp spec) Not detected Normal NOT DETECTED [facility] Comment on above: Result Comment: This test is not yet approved or cleared by the [place] FDA. When there are no FDA-approved or cleared tests available, and other criteria are met, FDA can make tests available under an emergency access mechanism called an Emergency Use Authorization (EUA). The EUA for this test is supported by the [place] of Health and Human Service's (HHS's) declaration [...] By: #### B MP, CMREP, LIPID #### [facility] [address] [place] [address] Dr. Jeimy Tenorio INFLUENZA A AND B AGon 11-04 INFLUANE SEE BELOW Normal [facility] Comment on above: Result Comment: Nega tive for Flu A protein angiten. Infection due to Flu A cannot be ruled out. Flu A angiten in the sample may be below the detection limit of the test. Performed By: #### I NFLUAB #### [facility] [address] [address] [address] [facility] Normal [facility] Comment on above: Result Comment: Nega tive for Flu B protein antigen. Infection due to Flu B cannot be ruled out. Flu B antigen in the sample may be below the detection limit of the test. Performed By: #### I NFLUAB #### [facility] [address] [place] [address] Dr. Jeimy Tenorio INFLUENZA A AG Negative Normal NEGATIVE SEE COMMENT [facility] Comment on above: Performed By: #### I NFLUAB #### [facility] [address] [place] [address] Dr. Jeimy Tenorio INFLUENZA B AG Negative Normal NEGATIVE SEE COMMENT [facility] Comment on above: Performed By: #### I NFLUAB #### [facility] [address] [place] [address] Dr. Jeimy Tenorio INTERNAL CONTROLS Within Normal Limits Normal Wi thin Normal Limits [facility] Comment on above: Performed By: #### I NFLUAB #### [facility] [address] [place] [address] Dr. Jeimy Tenorio PROF CHEM 8 (BAS METB)on Anion gap [Moles/Vol] 9.7 mmol/L Normal [facility] Comment on above: Performed By: #### C BC #### [facility] [address] [place] [address] Dr. Jeimy Tenorio Calcium [Mass/Vol] 8.0 mg/dL Critically low 8.5-10.1 [facility] Comment on above: Performed By: #### C BC #### [facility] [address] [place] [address] Dr. Jeimy Tenorio Chloride [Moles/Vol] 104 mmol/L Normal 98-107 [facility] Comment on above: Performed By: #### C BC #### [facility] [address] [place] [address] Dr. Jeimy Tenorio CO2 [Moles/Vol] 31.1 mmol/L Normal 21.0-32.0 [facility] Comment on above: Performed By: #### C BC #### [facility] [address] [place] [address] Dr. Jeimy Tenorio Creatinine [Mass/Vol] 0.75 mg/dL Normal 0.70-1.30 [facility] Comment on above: Performed By: #### C BC #### [facility] [address] [address] [address] Jeimy Tenorio EGFR-AF UZBEK >60 Normal >=60 [facility] Comment on above: Performed By: #### C BC #### [facility] [address] [address] [address] Jeimy Tenorio EGFR-NON AF UZBEK >60 Normal >=60 [facility] Comment on above: Performed By: #### C BC #### [facility] [address] [address] [address] Jeimy Tenorio Glucose [Mass/Vol] 76 mg/dL Normal 74-106 [facility] Comment on above: Performed By: #### C BC #### [facility] [address] [place] [address] Dr. Jeimy Tenorio Potassium [Moles/Vol] 3.8 mmol/L Normal 3.5-5.1 [facility] Comment on above: Performed By: #### C BC #### [facility] [address] [address] [address] Jeimy Tenorio Sodium [Moles/Vol] 141 mmol/L Normal 136-145 [facility] Comment on above: Performed By: #### C BC #### [facility] [address] [place] [address] Dr. Jeimy Tenorio Urea nitrogen [Mass/Vol] 12.0 mg/dL Normal 7.0-18.0 [facility] Comment on above: Performed By: #### C BC #### [facility] [address] [place] [address] Dr. Jeimy Tenorio Urea nitrogen/Creatinine [Mass ratio] 16.0 mg/mg Normal [facility] Comment on above: Performed By: #### C BC #### [facility] [address] [address] [address] Jeimy Tenorio TROPONIN, HIGH SENSITIVITYon 11-04-2022 HSTROP 5.8 pg/mL Normal 4.0-76.1 [facility] Comment on above: Result Comment: CUT- OFF POINTS HAVE BEEN ESTABLISHED BASED ON THE FOURTH UNIVERSAL DEFINITIONS OF MYOCARDIAL INFARCTION. THE UPPER REFERENCE LIMIT (URL) OF TROPONIN, DEFINED THE 99TH PERCENTILE OF cTnI DISTRIBUTION IN A REFERENCE POPULATION, HAS BEEN CONFIRMED THE DECISION THRESHOLD FOR VA DIAGNOSIS. Performed By: #### C BC #### [facility] [address] [place] [address] Dr. Jeimy Tenorio CBC AUTO DIFFon 09-29-2022 BASO # 0.1 103/ul Normal 0.0-0.1 [facility] Comment on above: Performed By: #### B MP, CMREP, LIPID #### [facility] [address] [place] [address] Dr. Jeimy Tenorio Basophils/100 WBC (Bld) 1.2 % Normal 0.2-2.0 [facility] Comment on above: Performed By: #### B MP, CMREP, LIPID #### [facility] [address] [place] [address] Dr. Jeimy Tenorio EO # 0.3 103/ul Normal 0.0-0.7 [facility] Comment on above: Performed By: #### B MP, CMREP, LIPID #### [facility] [address] [place] [address] Dr. Jeimy Tenorio Eosinophils/100 WBC (Bld) 4.9 % Normal 0.9-7.0 [facility] Comment on above: Performed By: #### B MP, CMREP, LIPID #### [facility] [address] [place] [address] Dr. Jeimy Tenorio Erythrocyte distribution width (RBC) [Ratio] 13.2 % Normal 11.0-15.0 [facility] Comment on above: Performed By: #### B MP, CMREP, LIPID #### [facility] [address] [place] [address] Dr. Jeimy Tenorio Hematocrit (Bld) [Volume fraction] 42.3 % Normal 42.0-54.0 [facility] Comment on above: Performed By: #### B MP, CMREP, LIPID #### [facility] [address] [place] [address] Dr. Jeimy Tenorio Hemoglobin (Bld) [Mass/Vol] 13.8 g/dL Critically low 14.0-18.0 [facility] Comment on above: Performed By: #### B MP, CMREP, LIPID #### [facility] [address] [place] [address] Dr. Jeimy Tenorio IG # 0.02 10e3/ul Normal 0.00-0.03 [facility] Comment on above: Performed By: #### B MP, CMREP, LIPID #### [facility] [address] [place] [address] Dr. Jeimy Tenorio IG % 0.3 % Normal 0.0-0.5 [facility] Comment on above: Performed By: #### B MP, CMREP, LIPID #### [facility] [address] [place] [address] Dr. Jeimy Tenorio LYMPH # 1.3 103/ul Normal 1.2-3.8 [facility] Comment on above: Performed By: #### B MP, CMREP, LIPID #### [facility] [address] [place] [address] Dr. Jeimy Tenorio Lymphocytes/100 WBC (Bld) 19.5 % Critically low 20.5-60.0 [facility] Comment on above: Performed By: #### B MP, CMREP, LIPID #### [facility] [address] [place] [address] Dr. Jeimy Tenorio MANUAL DIFF REQ NO Normal [facility] Comment on above: Performed By: #### B MP, CMREP, LIPID #### [facility] [address] [place] [address] Dr. Jeimy Tenorio MCH (RBC) [Entitic mass] 32.9 pg Normal 25.9-34.0 [facility] Comment on above: Performed By: #### B MP, CMREP, LIPID #### [facility] [address] [place] [address] Dr. Jeimy Tenorio MCHC (RBC) [Mass/Vol] 32.6 g/dL Normal 29.9-35.2 [facility] Comment on above: Performed By: #### B MP, CMREP, LIPID #### [facility] [address] [place] [address] Dr. Jeimy Tenorio MCV (RBC) [Entitic vol] 100.7 fL Critically high 80.0-94.0 [facility] Comment on above: Performed By: #### B MP, CMREP, LIPID #### [facility] [address] [place] [address] Dr. Jeimy Tenorio MONO # 0.7 103/ul Normal 0.3-0.8 [facility] Comment on above: Performed By: #### B MP, CMREP, LIPID #### [facility] [address] [place] [address] Dr. Jeimy Tenorio Monocytes/100 WBC (Bld) 9.9 % Normal 1.7-12.0 [facility] Comment on above: Performed By: #### B MP, CMREP, LIPID #### [facility] [address] [place] [address] Dr. Jeimy Tenorio NEUT # 4.3 103/ul Normal 1.4-6.5 [facility] Comment on above: Performed By: #### B MP, CMREP, LIPID #### [facility] [address] [place] [address] Dr. Jeimy Tenorio Neutrophils/100 WBC (Bld) 64.2 % Normal 43.0-75.0 [facility] Comment on above: Performed By: #### B MP, CMREP, LIPID #### [facility] [address] [place] [address] Dr. Jeimy Tenorio Platelet mean volume (Bld) [Entitic vol] 10.4 fL Normal 9.5-13.5 [facility] Comment on above: Performed By: #### B MP, CMREP, LIPID #### [facility] [address] [place] [address] Dr. Jeimy Tenorio PLT 209 103/ul Normal 150-450 [facility] Comment on above: Performed By: #### B MP, CMREP, LIPID #### [facility] [address] [place] [address] Dr. Jeimy Tenorio RBC 4.20 106/ul Critically low 4.70-6.10 [facility] Comment on above: Performed By: #### B MP, CMREP, LIPID #### [facility] [address] [address] [address] Jeimy Tenorio WBC 6.7 103/ul Normal 4.0-11.0 [facility] Comment on above: Performed By: #### B MP, CMREP, LIPID #### [facility] [address] [address] [address] Jeimy Tenorio DILANTINon 09-29-2022 Phenytoin [Mass/Vol] 23.7 ug/mL Critically high 10.0-20.0 [facility] Comment on above: Performed By: #### C BC #### [facility] [address] [place] [address] Dr. Jeimy Tenorio GLYCOHEMOGLOBIN A1Con 2021 ADA RECOMMENDATION SEE BELOW Normal [facility] Comment on above: Result Comment: ADA RECOMMENDED LIMIT 4.0 - 6.0 ADA THERAPEUTIC TARGET < 7.0 ACTION SUGGESTED > 7.0 Performed By: #### A 1C #### [facility] [address] [address] [address] Jeimy Tenorio Glucose [Mass/Vol] 105 mg/dL Normal [facility] Comment on above: Performed By: #### A 1C #### [facility] [address] [place] [address] Dr. Jeimy Tenorio HbA1c (Bld) [Mass fraction] 5.3 % Normal 4.5-6.2 [facility] Comment on above: Performed By: #### A 1C #### [facility] [address] [place] [address] Dr. Jeimy Tenorio LIPID PROFILEon 09-29-2022 CHOL-HDL RATIO NORM SEE BELOW Normal [facility] Comment on above: Result Comment: 3.3 - 4.4 LOW RISK 4.4 - 7.1 AVERAGE RISK 7.1 - 11.0 MODERATE RISK >11.0 HIGH RISK Performed By: #### B MP, CMREP, LIPID #### [facility] [address] [place] [address] Dr. Jeimy Tenorio Cholesterol [Mass/Vol] 178 mg/dL Normal <=200 [facility] Comment on above: Performed By: #### B MP, CMREP, LIPID #### [facility] [address] [address] [address] Jeimy Tenorio Cholesterol in HDL [Mass/Vol] 56 mg/dL Normal 40-60 [facility] Comment on above: Performed By: #### B MP, CMREP, LIPID #### [facility] [address] [address] [address] Jeimy Tenorio Cholesterol in LDL [Mass/Vol] 86.8 mg/dL Normal [facility] Comment on above: Performed By: #### B MP, CMREP, LIPID #### [facility] [address] [place] [address] Dr. Jeiym Tenorio Cholesterol.total/Cho lesterol in HDL [Mass ratio] 3.2 {ratio} Normal [facility] Comment on above: Performed By: #### B MP, CMREP, LIPID #### [facility] [address] [place] [address] Dr. Jeimy Tenorio HDL NORMAL > or = 60 mg/dl - LO W CARDIOVASCULAR RISK <40 mg/dl - HIGH CARDIOVASCULAR RISK Normal [facility] Comment on above: Performed By: #### B MP, CMREP, LIPID #### [facility] [address] [address] [address] Jeimy Tenorio LDL CALC NORMAL SEE BELOW Normal [facility] Comment on above: Result Comment: <100 mg/dl OPTIMAL 100 - 129 mg/dl NEAR OR ABOVE OPTIMAL 130 - 159 mg/dl BORDERLINE HIGH 160 - 189 mg/dl HIGH >190 mg/dl VERY HIGH Performed By: #### B MP, CMREP, LIPID #### [facility] [address] [address] [address] Jeimy Tenorio Triglyceride [Mass/Vol] 176 mg/dL Critically high <=150 [facility] Comment on above: Performed By: #### B MP, CMREP, LIPID #### [facility] [address] [address] [address] Jeimy Tenorio VLDL CALC 35.2 mg/dL Normal [facility] Comment on above: Performed By: #### B MP, CMREP, LIPID #### [facility] [address] [place] [address] Dr. Jeimy Tenorio LIVER PROFILEon 09-29-2022 Albumin [Mass/Vol] 3.5 g/dL Normal 3.4-5.0 [facility] Comment on above: Performed By: #### B MP, CMREP, LIPID #### [facility] [address] [place] [address] Dr. Jeimy Tenorio Albumin/Globulin [Mass ratio] 0.8 {ratio} Normal [facility] Comment on above: Performed By: #### B MP, CMREP, LIPID #### [facility] [address] [place] [address] Dr. Jeimy Tenorio ALP [Catalytic activity/Vol] 139 U/L Critically high 46-116 [facility] Comment on above: Performed By: #### B MP, CMREP, LIPID #### [facility] [address] [place] [address] Dr. Jeimy Tenorio ALT [Catalytic activity/Vol] 25 U/L Normal 16-63 [facility] Comment on above: Performed By: #### B MP, CMREP, LIPID #### [facility] [address] [place] [address] Dr. Jeimy Tenorio AST [Catalytic activity/Vol] 23 U/L Normal 15-37 [facility] Comment on above: Performed By: #### B MP, CMREP, LIPID #### [facility] [address] [place] [address] Dr. Jeimy Tenorio BILI, CONJUGATED 0.0 mg/dL Normal 0.0-0.2 [facility] Comment on above: Performed By: #### B MP, CMREP, LIPID #### [facility] [address] [place] [address] Dr. Jeimy Tenorio Bilirubin [Mass/Vol] 0.3 mg/dL Normal 0.2-1.0 [facility] Comment on above: Performed By: #### B MP, CMREP, LIPID #### [facility] [address] [place] [address] Dr. Jeimy Tenorio Globulin (S) [Mass/Vol] 4.3 g/dL Normal [facility] Comment on above: Performed By: #### B MP, CMREP, LIPID #### [facility] [address] [place] [address] Dr. Jeimy Tenorio Protein [Mass/Vol] 7.8 g/dL Normal 6.4-8.2 [facility] Comment on above: Performed By: #### B MP, CMREP, LIPID #### [facility] [address] [address] [address] Jeimy Tenorio PROF CHEM 8 (BAS METB)on Anion gap [Moles/Vol] 8.7 mmol/L Normal [facility] Comment on above: Performed By: #### B MP, CMREP, LIPID #### [facility] [address] [place] [address] Dr. Jeimy Tenorio Calcium [Mass/Vol] 8.7 mg/dL Normal 8.5-10.1 [facility] Comment on above: Performed By: #### B MP, CMREP, LIPID #### [facility] [address] [place] [address] Dr. Jeimy Tenorio Chloride [Moles/Vol] 104 mmol/L Normal 98-107 [facility] Comment on above: Performed By: #### B MP, CMREP, LIPID #### [facility] [address] [address] [address] Jeimy Tenorio CO2 [Moles/Vol] 29.8 mmol/L Normal 21.0-32.0 [facility] Comment on above: Performed By: #### B MP, CMREP, LIPID #### [facility] [address] [place] [address] Dr. Jeimy Tenorio Creatinine [Mass/Vol] 0.76 mg/dL Normal 0.70-1.30 [facility] Comment on above: Performed By: #### B MP, CMREP, LIPID #### [facility] [address] [place] [address] Dr. Jeimy Tenorio EGFR-AF UZBEK >60 Normal >=60 [facility] Comment on above: Performed By: #### B MP, CMREP, LIPID #### [facility] [address] [place] [address] Dr. Jeimy Tenorio EGFR-NON AF UZBEK >60 Normal >=60 [facility] Comment on above: Performed By: #### B MP, CMREP, LIPID #### [facility] [address] [address] [address] Jeimy Tenorio Glucose [Mass/Vol] 95 mg/dL Normal 74-106 [facility] Comment on above: Performed By: #### B MP, CMREP, LIPID #### [facility] [address] [place] [address] Dr. Jeimy Tenorio Potassium [Moles/Vol] 4.5 mmol/L Normal 3.5-5.1 [facility] Comment on above: Performed By: #### B MP, CMREP, LIPID #### [facility] [address] [place] [address] Dr. Jeimy Tenorio Sodium [Moles/Vol] 138 mmol/L Normal 136-145 [facility] Comment on above: Performed By: #### B MP, CMREP, LIPID #### [facility] [address] [place] [address] Dr. Jeimy Tenorio Urea nitrogen [Mass/Vol] 18.0 mg/dL Normal 7.0-18.0 [facility] Comment on above: Performed By: #### B MP, CMREP, LIPID #### [facility] [address] [place] [address] Dr. Jeimy Tenorio Urea nitrogen/Creatinine [Mass ratio] 23.7 mg/mg Normal [facility] Comment on above: Performed By: #### B MP, CMREP, LIPID #### [facility] [address] [place] [address] Dr. Jeimy Tenorio TSHon 09-29-2022 TSH 1.694 uIU/mL Normal 0.358-3.740 [facility] Comment on above: Performed By: #### B MP, CMREP, LIPID #### [facility] [address] [address] [address] Jeimy Tenorio CARDIAC SAWYER 3-6on 2 CK [Catalytic activity/Vol] 47 U/L Normal 39-308 [facility] Comment on above: Performed By: #### B MP, CMREP, LIPID #### [facility] [address] [address] [address] Jeimy Tenorio CK.MB [Mass/Vol] 0.77 ng/mL Normal <=3.60 [facility] Comment on above: Performed By: #### B MP, CMREP, LIPID #### [facility] [address] [address] [address] Jeimy Tenorio HSTROP 6.9 pg/mL Normal 4.0-76.1 [facility] Comment on above: Result Comment: CUT- OFF POINTS HAVE BEEN ESTABLISHED BASED ON THE FOURTH UNIVERSAL DEFINITIONS OF MYOCARDIAL INFARCTION. THE UPPER REFERENCE LIMIT (URL) OF TROPONIN, DEFINED THE 99TH PERCENTILE OF cTnI DISTRIBUTION IN A REFERENCE POPULATION, HAS BEEN CONFIRMED THE DECISION THRESHOLD FOR [facility] DIAGNOSIS. Performed By: #### B MP, CMREP, LIPID #### [facility] [address] [place] [address] Dr. Jeimy Tenoiro CK [Catalytic activity/Vol] 53 U/L Normal 39-308 [facility] Comment on above: Performed By: #### C BC #### [facility] [address] [place] [address] Dr. Jeimy Tenorio CK.MB [Mass/Vol] 0.80 ng/mL Normal <=3.60 [facility] Comment on above: Performed By: #### C BC #### [facility] [address] [place] [address] Dr. Jeimy Tenorio HSTROP 6.2 pg/mL Normal 4.0-76.1 [facility] Comment on above: Result Comment: CUT- OFF POINTS HAVE BEEN ESTABLISHED BASED ON THE FOURTH UNIVERSAL DEFINITIONS OF MYOCARDIAL INFARCTION. THE UPPER REFERENCE LIMIT (URL) OF TROPONIN, DEFINED THE 99TH PERCENTILE OF cTnI DISTRIBUTION IN A REFERENCE POPULATION, HAS BEEN CONFIRMED THE DECISION THRESHOLD FOR [facility] DIAGNOSIS. Performed By: #### C BC #### [facility] [address] [address] [address] Jeimy Tenorio CBC AUTO DIFFon 06-12-2022 BASO # 0.1 103/ul Normal 0.0-0.1 [facility] Comment on above: Performed By: #### C BC #### [facility] [address] [place] [address] Dr. Jeimy Tenorio Basophils/100 WBC (Bld) 0.9 % Normal 0.2-2.0 [facility] Comment on above: Performed By: #### C BC #### [facility] [address] [place] [address] Dr. Jeimy Tenorio EO # 0.3 103/ul Normal 0.0-0.7 [facility] Comment on above: Performed By: #### C BC #### [facility] [address] [place] [address] Dr. Jeimy Tenorio Eosinophils/100 WBC (Bld) 5.2 % Normal 0.9-7.0 [facility] Comment on above: Performed By: #### C BC #### [facility] [address] [place] [address] Dr. Jeimy Tenorio Erythrocyte distribution width (RBC) [Ratio] 13.0 % Normal 11.0-15.0 [facility] Comment on above: Performed By: #### C BC #### [facility] [address] [place] [address] Dr. Jeimy Tenorio Hematocrit (Bld) [Volume fraction] 39.1 % Critically low 42.0-54.0 [facility] Comment on above: Performed By: #### C BC #### [facility] [address] [place] [address] Dr. Jeimy Tenorio Hemoglobin (Bld) [Mass/Vol] 13.2 g/dL Critically low 14.0-18.0 [facility] Comment on above: Performed By: #### C BC #### [facility] [address] [place] [address] Dr. Jeimy Tenorio IG # 0.03 10e3/ul Normal 0.00-0.03 [facility] Comment on above: Performed By: #### C BC #### [facility] [address] [place] [address] Dr. Jeimy Tenorio IG % 0.5 % Normal 0.0-0.5 [facility] Comment on above: Performed By: #### C BC #### [facility] [address] [place] [address] Dr. Jeimy Tenorio LYMPH # 1.7 103/ul Normal 1.2-3.8 [facility] Comment on above: Performed By: #### C BC #### [facility] [address] [place] [address] Dr. Jeimy Tenorio Lymphocytes/100 WBC (Bld) 26.0 % Normal 20.5-60.0 [facility] Comment on above: Performed By: #### C BC #### [facility] [address] [place] [address] Dr. Jeimy Tenorio MANUAL DIFF REQ NO Normal [facility] Comment on above: Performed By: #### C BC #### [facility] [address] [place] [address] Dr. Jeimy Tenoiro MCH (RBC) [Entitic mass] 33.2 pg Normal 25.9-34.0 [facility] Comment on above: Performed By: #### C BC #### [facility] [address] [place] [address] Dr. Jeimy Tenorio MCHC (RBC) [Mass/Vol] 33.8 g/dL Normal 29.9-35.2 [facility] Comment on above: Performed By: #### C BC #### [facility] [address] [place] [address] Dr. Jeimy Tenorio MCV (RBC) [Entitic vol] 98.5 fL Critically high 80.0-94.0 [facility] Comment on above: Performed By: #### C BC #### [facility] [address] [place] [address] Dr. Jeimy Tenorio MONO # 0.8 103/ul Normal 0.3-0.8 [facility] Comment on above: Performed By: #### C BC #### [facility] [address] [address] [address] Jeimy Tenorio Monocytes/100 WBC (Bld) 12.2 % Critically high 1.7-12.0 [facility] Comment on above: Performed By: #### C BC #### [facility] [address] [place] [address] Dr. Jeimy Tenorio NEUT # 3.6 103/ul Normal 1.4-6.5 [facility] Comment on above: Performed By: #### C BC #### [facility] [address] [address] [address] Jeimy Tenorio Neutrophils/100 WBC (Bld) 55.2 % Normal 43.0-75.0 [facility] Comment on above: Performed By: #### C BC #### [facility] [address] [place] [address] Dr. Jeimy Tenorio Platelet mean volume (Bld) [Entitic vol] 9.9 fL Normal 9.5-13.5 [facility] Comment on above: Performed By: #### C BC #### [facility] [address] [place] [address] Dr. Jeimy Tenorio PLT 174 103/ul Normal 150-450 [facility] Comment on above: Performed By: #### C BC #### [facility] [address] [place] [address] Dr. Jeimy Tenorio RBC 3.97 106/ul Critically low 4.70-6.10 [facility] Comment on above: Performed By: #### C BC #### [facility] [address] [place] [address] Dr. Jeimy Tenorio WBC 6.5 103/ul Normal 4.0-11.0 [facility] Comment on above: Performed By: #### C BC #### [facility] [address] [place], [place] [id number] Dr. Jeimy Tenorio CTA CHEST WO W CONon 06-12- 022 CTA CHEST WO W CON EXAM: [...] MAMIE ALFORD Date: 2022-06-12 00:21 Normal [facility] Covid-19 PCR (CVDTB)on 05-22 SARS-CoV-2 (COVID-19) RNA ALEX+probe Ql (Unsp spec) Not detected Normal NOT DETECTED [facility] Comment on above: Result Comment: When diagnostic [...] for this test is supported by the [place] of Health and Human Service's declaration that [...] By: #### B MP, CMREP, LIPID #### [facility] [address] [place] [address] Dr. Jeimy Tenorio ER URINE PROFILEon 2 Bilirubin Ql (U) Negative Normal NEGATIVE [facility] Comment on above: Performed By: #### E RUR #### [facility] [address] [place] [address] Dr. Jeimy Tenorio Clarity (U) CLEAR Normal CLEAR [facility] Comment on above: Performed By: #### E RUR #### [facility] [address] [place] [address] Dr. Jeimy Tenorio Color (U) LT. YELLOW Normal YELLOW [facility] Comment on above: Performed By: #### E RUR #### [facility] [address] [place] [address] Dr. Jeimy Tenorio ERUAHVictorian A micrscopic examination will be performed if indicated. Normal [facility] Comment on above: Performed By: #### E RUR #### [facility] [address] [place] [address] Dr. Jeimy Tenorio Glucose Ql (U) Negative Normal NEGATIVE [facility] Comment on above: Performed By: #### E RUR #### [facility] [address] [place] [address] Dr. Jeimy Tenorio Hemoglobin Ql (U) Negative Normal NEGATIVE [facility] Comment on above: Performed By: #### E RUR #### [facility] [address] [place] [address] Dr. Jeimy Tenorio Ketones Ql (U) TRACE Abnormal NEGATIVE [facility] Comment on above: Performed By: #### E RUR #### [facility] [address] [place] [address] Dr. Jeimy Tenorio LEUKOCYTES Negative Normal NEGATIVE [facility] Comment on above: Performed By: #### E RUR #### [facility] [address] [place] [address] Dr. Jeimy Tenorio Nitrite Ql (U) Negative Normal NEGATIVE [facility] Comment on above: Performed By: #### E RUR #### [facility] [address] [place] [address] Dr. Jeimy Tenorio pH (U) 5.5 [pH] Normal 5-9 [facility] Comment on above: Performed By: #### E RUR #### [facility] [address] [place] [address] Dr. Jeimy Tenorio SPEC GRAVITY 1.010 Normal 1.005-<=1.[address] [place] [address] Comment on above: Performed By: #### E RUR #### [facility] [address] [place] [address] Dr. Jeimy Tenorio UA PROTEIN Negative Normal NEGATIVE/ TRACE [facility] Comment on above: Performed By: #### E RUR #### [facility] [address] [place] [address] Dr. Jeimy Tenorio UR MICRO IND NOT INDICATED Normal [facility] Comment on above: Performed By: #### E RUR #### [facility] [address] [place] [address] Dr. Jeimy Tenorio Urobilinogen Qn (U) 0.2 {Raphael'U}/dL Normal 0.2 - 1. 0 [facility] Comment on above: Performed By: #### E RUR #### [facility] [address] [place] [address] Dr. Jeimy Tenorio GLYCOHEMOGLOBIN A1Con 2021 ADA RECOMMENDATION SEE BELOW Normal [facility] Comment on above: Result Comment: ADA RECOMMENDED LIMIT 4.0 - 6.0 ADA THERAPEUTIC TARGET < 7.0 ACTION SUGGESTED > 7.0 Performed By: #### C BC #### [facility] [address] [place] [address] Dr. Jeimy Tenorio Glucose [Mass/Vol] 103 mg/dL Normal [facility] Comment on above: Performed By: #### C BC #### [facility] [address] [place] [address] Dr. Jeimy Tenorio HbA1c (Bld) [Mass fraction] 5.2 % Normal 4.5-6.2 [facility] Comment on above: Performed By: #### C BC #### [facility] [address] [address] [address] Jeimy Tenorio LIPID PROFILEon 06-12-2022 CHOL-HDL RATIO NORM SEE BELOW Normal [facility] Comment on above: Result Comment: 3.3 - 4.4 LOW RISK 4.4 - 7.1 AVERAGE RISK 7.1 - 11.0 MODERATE RISK >11.0 HIGH RISK Performed By: #### B MP, CMREP, LIPID #### [facility] [address] [address] [address] Jeimy Tenorio Cholesterol [Mass/Vol] 142 mg/dL Normal <=200 [facility] Comment on above: Performed By: #### B MP, CMREP, LIPID #### [facility] [address] [address] [address] Jeimy Tenorio Cholesterol in HDL [Mass/Vol] 49 mg/dL Normal 40-60 [facility] Comment on above: Performed By: #### B MP, CMREP, LIPID #### [facility] [address] [address] [address] Jeimy Tenorio Cholesterol in LDL [Mass/Vol] 64.6 mg/dL Normal [facility] Comment on above: Performed By: #### B MP, CMREP, LIPID #### [facility] [address] [address] [address] Jeimy Tenorio Cholesterol.total/Cho lesterol in HDL [Mass ratio] 2.9 {ratio} Normal [facility] Comment on above: Performed By: #### B MP, CMREP, LIPID #### [facility] [address] [address] [address] Jeimy Tenorio HDL NORMAL > or = 60 mg/dl - LO W CARDIOVASCULAR RISK <40 mg/dl - HIGH CARDIOVASCULAR RISK Normal [facility] Comment on above: Performed By: #### B MP, CMREP, LIPID #### [facility] [address] [address] [address] Jeimy Tenorio LDL CALC NORMAL SEE BELOW Normal [facility] Comment on above: Result Comment: <100 mg/dl OPTIMAL 100 - 129 mg/dl NEAR OR ABOVE OPTIMAL 130 - 159 mg/dl BORDERLINE HIGH 160 - 189 mg/dl HIGH >190 mg/dl VERY HIGH Performed By: #### B MP, CMREP, LIPID #### [facility] [address] [address] [address] Jeimy Tenorio Triglyceride [Mass/Vol] 142 mg/dL Normal <=150 [facility] Comment on above: Performed By: #### B MP, CMREP, LIPID #### [facility] [address] [address] [address] Jeimy Tenorio VLDL CALC 28.4 mg/dL Normal [facility] Comment on above: Performed By: #### B MP, CMREP, LIPID #### [facility] [address] [address] [address] Jeimy Tenorio PROF CHEM 8 (BAS METB)on Anion gap [Moles/Vol] 10.1 mmol/L Normal [facility] Comment on above: Performed By: #### B MP, CMREP, LIPID #### [facility] [address] [address] [address] Jeimy Tenorio Calcium [Mass/Vol] 8.0 mg/dL Critically low 8.5-10.1 [facility] Comment on above: Performed By: #### B MP, CMREP, LIPID #### [facility] [address] [address] [address] Jeimy Tenorio Chloride [Moles/Vol] 104 mmol/L Normal 98-107 [facility] Comment on above: Performed By: #### B MP, CMREP, LIPID #### [facility] [address] [address] [address] Jeimy Tenorio CO2 [Moles/Vol] 27.0 mmol/L Normal 21.0-32.0 [facility] Comment on above: Performed By: #### B MP, CMREP, LIPID #### [facility] [address] [address] [address] Jeimy Tenorio Creatinine [Mass/Vol] 0.79 mg/dL Normal 0.70-1.30 [facility] Comment on above: Performed By: #### B MP, CMREP, LIPID #### [facility] [address] [place] [address] Dr. Jeimy Tenorio EGFR-AF UZBEK >60 Normal >=60 [facility] Comment on above: Performed By: #### B MP, CMREP, LIPID #### [facility] [address] [place] [address] Dr. Jeimy Tenorio EGFR-NON AF UZBEK >60 Normal >=60 [facility] Comment on above: Performed By: #### B MP, CMREP, LIPID #### [facility] [address] [place] [address] Dr. Jeimy Tenorio Glucose [Mass/Vol] 101 mg/dL Normal 74-106 [facility] Comment on above: Performed By: #### B MP, CMREP, LIPID #### [facility] [address] [place] [address] Dr. Jeimy Tenorio Potassium [Moles/Vol] 4.1 mmol/L Normal 3.5-5.1 [facility] Comment on above: Performed By: #### B MP, CMREP, LIPID #### [facility] [address] [place] [address] Dr. Jeimy Tenorio Sodium [Moles/Vol] 137 mmol/L Normal 136-145 [facility] Comment on above: Performed By: #### B MP, CMREP, LIPID #### [facility] [address] [place] [address] Dr. Jeimy Tenorio Urea nitrogen [Mass/Vol] 15.0 mg/dL Normal 7.0-18.0 [facility] Comment on above: Performed By: #### B MP, CMREP, LIPID #### [facility] [address] [place] [address] Dr. Jeimy Tenorio Urea nitrogen/Creatinine [Mass ratio] 19.0 mg/mg Normal [facility] Comment on above: Performed By: #### B MP, CMREP, LIPID #### [facility] [address] [place] [address] Dr. Jeimy Tenorio CARDIAC SAWYER ADMITon 022 CK [Catalytic activity/Vol] 50 U/L Normal 39-308 [facility] Comment on above: Performed By: #### C BC #### [facility] [address] [place] [address] Dr. Jeimy Tenorio CK.MB [Mass/Vol] 0.80 ng/mL Normal <=3.60 [facility] Comment on above: Performed By: #### C BC #### [facility] [address] [place] [address] Dr. Jeimy Tenorio HSTROP 5.2 pg/mL Normal 4.0-76.1 [facility] Comment on above: Result Comment: CUT- OFF POINTS HAVE BEEN ESTABLISHED BASED ON THE FOURTH UNIVERSAL DEFINITIONS OF MYOCARDIAL INFARCTION. THE UPPER REFERENCE LIMIT (URL) OF TROPONIN, DEFINED THE 99TH PERCENTILE OF cTnI DISTRIBUTION IN A REFERENCE POPULATION, HAS BEEN CONFIRMED THE DECISION THRESHOLD FOR [facility] DIAGNOSIS. Performed By: #### C BC #### [facility] [address] [place] [address] Dr. Jeimy Tenorio MAGALIE 41 ng/mL Normal 16-96 [facility] Comment on above: Performed By: #### C BC #### [facility] [address] [place] [address] Dr. Jeimy Tenorio CBC AUTO DIFFon 06-11-2022 BASO # 0.0 103/ul Normal 0.0-0.1 [facility] Comment on above: Performed By: #### C BC #### [facility] [address] [place] [address] Dr. Jeimy Tenorio Basophils/100 WBC (Bld) 0.6 % Normal 0.2-2.0 [facility] Comment on above: Performed By: #### C BC #### [facility] [address] [place] [address] Dr. Jeimy Tenorio EO # 0.4 103/ul Normal 0.0-0.7 [facility] Comment on above: Performed By: #### C BC #### [facility] [address] [place] [address] Dr. Jeimy Tenorio Eosinophils/100 WBC (Bld) 4.9 % Normal 0.9-7.0 [facility] Comment on above: Performed By: #### C BC #### [facility] [address] [place] [address] Dr. Jeimy Tenorio Erythrocyte distribution width (RBC) [Ratio] 13.1 % Normal 11.0-15.0 [facility] Comment on above: Performed By: #### C BC #### [facility] [address] [place] [address] Dr. Jeimy Tenorio Hematocrit (Bld) [Volume fraction] 38.1 % Critically low 42.0-54.0 [facility] Comment on above: Performed By: #### C BC #### [facility] [address] [place] [address] Dr. Jeimy Tenorio Hemoglobin (Bld) [Mass/Vol] 13.0 g/dL Critically low 14.0-18.0 [facility] Comment on above: Performed By: #### C BC #### [facility] [address] [place] [address] Dr. Jeimy Tenorio IG # 0.02 10e3/ul Normal 0.00-0.03 [facility] Comment on above: Performed By: #### C BC #### [facility] [address] [place] [address] Dr. Jeimy Tenorio IG % 0.3 % Normal 0.0-0.5 [facility] Comment on above: Performed By: #### C BC #### [facility] [address] [place] [address] Dr. Jeimy Tenorio LYMPH # 1.7 103/ul Normal 1.2-3.8 [facility] Comment on above: Performed By: #### C BC #### [facility] [address] [place] [address] Dr. Jeimy Tenorio Lymphocytes/100 WBC (Bld) 22.9 % Normal 20.5-60.0 [facility] Comment on above: Performed By: #### C BC #### [facility] [address] [place] [address] Dr. Jeimy Tenorio MANUAL DIFF REQ NO Normal [facility] Comment on above: Performed By: #### C BC #### [facility] [address] [place] [address] Dr. Jeimy Tenorio MCH (RBC) [Entitic mass] 33.5 pg Normal 25.9-34.0 [facility] Comment on above: Performed By: #### C BC #### [facility] [address] [place] [address] Dr. Jeimy Tenorio MCHC (RBC) [Mass/Vol] 34.1 g/dL Normal 29.9-35.2 [facility] Comment on above: Performed By: #### C BC #### [facility] [address] [place] [address] Dr. Jeimy Tenorio MCV (RBC) [Entitic vol] 98.2 fL Critically high 80.0-94.0 [facility] Comment on above: Performed By: #### C BC #### [facility] [address] [place] [address] Dr. Jeimy Tenorio MONO # 0.8 103/ul Normal 0.3-0.8 [facility] Comment on above: Performed By: #### C BC #### [facility] [address] [place] [address] Dr. Jeimy Tenorio Monocytes/100 WBC (Bld) 11.5 % Normal 1.7-12.0 [facility] Comment on above: Performed By: #### C BC #### [facility] [address] [place] [address] Dr. Jeimy Tenorio NEUT # 4.3 103/ul Normal 1.4-6.5 [facility] Comment on above: Performed By: #### C BC #### [facility] [address] [place] [address] Dr. Jeimy Tenorio Neutrophils/100 WBC (Bld) 59.8 % Normal 43.0-75.0 [facility] Comment on above: Performed By: #### C BC #### [facility] [address] [place] [address] Dr. Jeimy Tenorio Platelet mean volume (Bld) [Entitic vol] 9.8 fL Normal 9.5-13.5 [facility] Comment on above: Performed By: #### C BC #### [facility] [address] [address] [address] Jeimy Tenorio PLT 181 103/ul Normal 150-450 [facility] Comment on above: Performed By: #### C BC #### [facility] [address] [id number] Jeimy Tenorio RBC 3.88 106/ul Critically low 4.70-6.10 [facility] Comment on above: Performed By: #### C BC #### [facility] [address] [address] [address] Jeimy Tenorio WBC 7.2 103/ul Normal 4.0-11.0 [facility] Comment on above: Performed By: #### C BC #### [facility] [address] [place] [address] Dr. Jeimy Tenorio D-DIMERon 06-11-2022 D-DIMER 0.63 mg/L FEU Critically high <=0.59 [facility] Comment on above: Performed By: #### D DIM #### [facility] [address] [place] [address] Dr. Jeimy Tenorio D-DIMER COMMENTS SEE BELOW Normal [facility] Comment on above: Result Comment: [...] hospitalization. Performed By: #### D DIM #### [facility] [address] [place] [address] Dr. Jeimy Tenorio PROF 14(COMP METB)on 022 Albumin [Mass/Vol] 3.3 g/dL Critically low 3.4-5.0 [facility] Comment on above: Performed By: #### C BC #### [facility] [address] [place] [address] Dr. Jeimy Tenorio Albumin/Globulin [Mass ratio] 0.8 {ratio} Normal [facility] Comment on above: Performed By: #### C BC #### [facility] [address] [address] [address] Jeimy Tenorio ALP [Catalytic activity/Vol] 160 U/L Critically high 46-116 [facility] Comment on above: Performed By: #### C BC #### [facility] [address] [place] [address] Dr. Jeimy Tenorio ALT [Catalytic activity/Vol] 26 U/L Normal 16-63 [facility] Comment on above: Performed By: #### C BC #### [facility] [address] [place] [address] Dr. Jeimy Tenorio Anion gap [Moles/Vol] 10.4 mmol/L Normal [facility] Comment on above: Performed By: #### C BC #### [facility] [address] [place] [address] Dr. Jeimy Tenorio AST [Catalytic activity/Vol] 16 U/L Normal 15-37 [facility] Comment on above: Performed By: #### C BC #### [facility] [address] [place] [address] Dr. Jeimy Tenorio Bilirubin [Mass/Vol] 0.2 mg/dL Normal 0.2-1.0 [facility] Comment on above: Performed By: #### C BC #### [facility] [address] [place] [address] Dr. Jeimy Tenorio Calcium [Mass/Vol] 8.2 mg/dL Critically low 8.5-10.1 [facility] [facility] Comment on above: Performed By: #### C BC #### [facility] [address] [place] [address] Dr. Jeimy Tenorio Chloride [Moles/Vol] 105 mmol/L Normal 98-107 [facility] Comment on above: Performed By: #### C BC #### [facility] [address] [place] [address] Dr. Jeimy Tenorio CO2 [Moles/Vol] 26.5 mmol/L Normal 21.0-32.0 [facility] Comment on above: Performed By: #### C BC #### [facility] [address] [place] [address] Dr. Jeimy Tenorio Creatinine [Mass/Vol] 0.96 mg/dL Normal 0.70-1.30 [facility] Comment on above: Performed By: #### C BC #### [facility] [address] [place] [address] Dr. Jeimy Tenorio EGFR-AF UZBEK >60 Normal >=60 [facility] Comment on above: Performed By: #### C BC #### [facility] [address] [place] [address] Dr. Jeimy Tenorio EGFR-NON AF UZBEK >60 Normal >=60 [facility] Comment on above: Performed By: #### C BC #### [facility] [address] [place] [address] Dr. Jeimy Tenorio Globulin (S) [Mass/Vol] 4.0 g/dL Normal [facility] Comment on above: Performed By: #### C BC #### [facility] [address] [place] [address] Dr. Jeimy Tenorio Glucose [Mass/Vol] 140 mg/dL Critically high 74-106 [facility] Comment on above: Performed By: #### C BC #### [facility] [address] [place] [address] Dr. Jeimy Tenorio Potassium [Moles/Vol] 3.9 mmol/L Normal 3.5-5.1 [facility] Comment on above: Performed By: #### C BC #### [facility] [address] [place] [address] Dr. Jeimy Tenorio Protein [Mass/Vol] 7.3 g/dL Normal 6.4-8.2 [facility] Comment on above: Performed By: #### C BC #### [facility] [address] [place] [address] Dr. Jeimy Tenorio Sodium [Moles/Vol] 138 mmol/L Normal 136-145 [facility] Comment on above: Performed By: #### C BC #### [facility] [address] [place], [place] [address] Dr. Jeimy Tenorio Urea nitrogen [Mass/Vol] 15.0 mg/dL Normal 7.0-18.0 [facility] Comment on above: Performed By: #### C BC #### [facility] [address] [place], [place] [address] Dr. Jeimy Tenorio Urea nitrogen/Creatinine [Mass ratio] 15.6 mg/mg Normal [facility] Comment on above: Performed By: #### C BC #### [facility] [address] [place], [place] [address] Dr. Jeim[facility] Tenorio [facility]-30-2021 Albumin [Mass/Vol] 4.3 g/dL Normal 3.6-5.1 [facility] Comment on above: Performed By: #### 7 , 7599, 92457 #### [facility] [place] [address] Foundry Supervisor: Yash Campuzano MD Albumin/Globulin [Mass ratio] 1.3 {ratio} Normal 1.0-2.5 [facility] Comment on above: Performed By: #### 7 , 7599, 76670 #### [facility] [place] [address] [employer] Supervisor: Yash Campuzano MD ALP [Catalytic activity/Vol] 152 U/L High 35-144 [facility] Comment on above: Performed By: #### 7 , 7599, 85179 #### [facility] [place] [address] [employer] Supervisor: Yash Campuzano MD ALT [Catalytic activity/Vol] 30 U/L Normal 9-46 [facility] Comment on above: Performed By: #### 7 , 7599, 32381 #### [facility] [place] [address] [employer] Supervisor: Yash Campuzano MD AST [Catalytic activity/Vol] 26 U/L Normal 10-35 [facility] Comment on above: Performed By: #### 7 13, 7600, 54169 #### [facility] of [place] [address] [employer] Supervisor: Yash Campuzano MD Bilirubin [Mass/Vol] 0.4 mg/dL Normal 0.2-1.2 [facility] Comment on above: Performed By: #### 7 13, 0, 37100 #### [facility] of [place] [address] [employer] Supervisor: Yash Campuzano MD BUN/CREATININE RATIO NOT APPLICABLE Normal 6-22 [facility] Comment on above: Performed By: #### 7 13, 0, 44761 #### [facility] [place] [address] [employer] Supervisor: Yash Campuzano MD Calcium [Mass/Vol] 8.8 mg/dL Normal 8.6-10.3 [facility] Comment on above: Performed By: #### 7 13, 7599, 96781 #### [facility] [place] [address] [employer] Supervisor: Yash Campuzano MD Chloride [Moles/Vol] 104 mmol/L Normal 98-110 [facility] Comment on above: Performed By: #### 7 13, 0, 26010 #### [facility] [place] [address] [employer] Supervisor: Yash Campuzano MD CO2 [Moles/Vol] 25 mmol/L Normal 20-32 [facility] Comment on above: Performed By: #### 7 13, 7600, 02777 #### [facility] [place] [address] [employer] Supervisor: Yash Campuzano MD Creatinine [Mass/Vol] 0.76 mg/dL Normal 0.70-1.[address] [facility] Comment on above: Result Comment: For patients >49 years of age, the reference limit for Creatinine is approximately 13% higher for people identified as -Romanian. Performed By: #### 7 13, 7599, 46585 #### [facility] [address], [address] [place] [address] Found[employer] Supervisor: Yash Campuzano MD eGFR NON-AFR. UZBEK 95 mL/min/1.73m2 Normal > OR = 60 [facility] Comment on above: Performed By: #### 7 13, 0, 95211 #### [facility] [address], [address] [place] [address] Found[employer] Supervisor: Yash Campuzano MD GFR/1.73 sq M.predicted among blacks MDRD (S/P/Bld) [Vol rate/Area] 110 mL/min/{1.73_m2} Normal > OR = 60 [facility] Comment on above: Performed By: #### 7 13, 7599, 58095 #### [facility] [address], [address] [place] [address] Found[employer] Supervisor: Yash Campuzano MD Globulin (S) [Mass/Vol] 3.2 g/dL Normal 1.9-3.7 [facility] Comment on above: Performed By: #### 7 13, 7599, 66735 #### [facility] [address], [address] [place] [address] Found[employer] Supervisor: Yash Campuzano MD Glucose [Mass/Vol] 103 mg/dL High 65-99 [facility] Comment on above: Result Comment: Fasting reference interval For someone without known diabetes, a glucose value between 100 and 125 mg/dL is consistent with prediabetes and should be confirmed with a follow-up test. Performed By: #### 7 13, 7599, 51669 #### [facility] [address], [address] [place] [address] Found[employer] Supervisor: Yash Campuzano MD Potassium [Moles/Vol] 4.7 mmol/L Normal 3.5-5.[address] [facility] Comment on above: Performed By: #### 7 , 760, 92161 #### [facility] [address], [address] [place] [address] Foundry Supervisor: Yash Campuzano MD Protein [Mass/Vol] 7.5 g/dL Normal 6.1-8.1 [facility] Comment on above: Performed By: #### 7 13, 0, 92707 #### [facility] [place] [address] [employer] Supervisor: Yash Campuzano MD Sodium [Moles/Vol] 137 mmol/L Normal 135-146 [facility] Comment on above: Performed By: #### 7 13, 0, 63651 #### [facility] [address], [address] [place] [address] Foundry Supervisor: Yash Campuzano MD Urea nitrogen [Mass/Vol] 15 mg/dL Normal 7-25 [facility] Comment on above: Performed By: #### 7 13, 7599, 65692 #### [facility] [place] [address] [employer] Supervisor: Yash Campuzano MD LIPID PANEL, [place] [address] Cholesterol [Mass/Vol] 180 mg/dL Normal <200 [facility] Comment on above: Order Comment: FASTI NG:YES FASTING: YES Performed By: #### 7 13, 0, 05929 #### [facility] [place] [address] [employer] Supervisor: Yash Campuzano MD Cholesterol in HDL [Mass/Vol] 50 mg/dL Normal > OR = 40 [facility] Comment on above: Order Comment: FASTI NG:YES FASTING: YES Performed By: #### 7 13, 7599, 35398 #### [facility] [place] [address] [employer] Supervisor: Yash Campuzano MD Cholesterol in LDL [...] LDL-C. Gennaro SS et al. KO. 2013;310(19): 7567-1511 (http://education.[employer]faq/BFA132) Performed By: #### 7 , 0, 13652 #### [facility] [address], [address] [place] [address] Foundry Supervisor: Yash Campuzano MD Cholesterol.total/Cho lesterol in HDL [Mass ratio] 3.6 {ratio} Normal <5.0 [facility] Comment on above: Order Comment: FASTI NG:YES FASTING: YES Performed By: #### 7 , 7599, 00831 #### [facility] [address], [address] [place] [address] Found[employer] Supervisor: Yash Campuzano MD NON HDL CHOLESTEROL 130 mg/dL (calc) High <130 [facility] Comment on above: Order Comment: FASTI NG:YES FASTING: YES Result Comment: For patients with diabetes plus 1 major ASCVD risk factor, treating to a non-HDL-C goal of <100 mg/dL (LDL-C of <70 mg/dL) is considered a therapeutic option. Performed By: #### 7 , 7599, 05016 #### [facility] [place] [address] [employer] Supervisor: Yash Campuzano MD Triglyceride [Mass/Vol] 280 mg/dL High <150 [facility] Comment on above: Order Comment: FASTI NG:YES FASTING: YES Result Comment: If a non-fasting specimen was collected, consider repeat triglyceride testing on a fasting specimen if clinically indicated. Marquise et al. J. of Clin. Lipidol. 2015;9:129-169. Performed By: #### 7 , 7599, 82675 #### [facility] [address], [address] [place] [address] Foundry Supervisor: Yash Campuzano MD PHENYTOINon 10-30-2021 Phenytoin [Mass/Vol] 18.9 ug/mL Normal 10.0-20.0 [facility] Comment on above: Performed By: #### 7 13, 7600, 62817 #### [facility] [place] [address] [employer] Supervisor: Yash Campuzano MD CBC (INCLUDES DIFF/PLT)on Basophils (Bld) [#/Vol] 0.071 10*3/uL Normal 0-200 [facility] Comment on above: Performed By: #### 7 13, 7599, 6399 #### [facility] of [address], [address] [place] [address] Foundry Supervisor: Yash Campuzano MD Basophils/100 WBC (Bld) 1.2 % Normal [facility] Comment on above: Performed By: #### 7 13, 7599, 6399 #### [facility] [place] [address] [employer] Supervisor: Yash Campuzano MD Eosinophils (Bld) [#/Vol] 0.277 10*3/uL Normal 15-500 [facility] Comment on above: Performed By: #### 7 13, 7599, 6399 #### [facility] [place] [address] [employer] Supervisor: Yash Campuzano MD Eosinophils/100 WBC (Bld) 4.7 % Normal [facility] Comment on above: Performed By: #### 7 13, 7599, 6399 #### [facility] [place] [address] Found[employer] Supervisor: Yash Campuzano MD Erythrocyte distribution width (RBC) [Ratio] 12.8 % Normal 11.0-15.0 [facility] Comment on above: Performed By: #### 7 13, 760, 6399 #### [facility] [place] [address] Found[employer] Supervisor: Yash Campuzano MD Hematocrit (Bld) [Volume fraction] 42.1 % Normal 38.5-50.0 [facility] Comment on above: Performed By: #### 7 13, 760, 6399 #### [facility] of [address], [address] [place] [address] Foundry Supervisor: Yash Campuzano MD Hemoglobin (Bld) [Mass/Vol] 14.9 g/dL Normal 13.2-17.1 [facility] Comment on above: Performed By: #### 7 , 7599, 6399 #### [facility] of [address], [address] [place] [address] Foundry Supervisor: Yash Campuzano MD Lymphocytes (Bld) [#/Vol] 1.068 10*3/uL Normal 850-3900 [facility] Comment on above: Performed By: #### 7 , 7599, 6399 #### [facility] [place] [address] Found[employer] Supervisor: Yash Campuzano MD Lymphocytes/100 WBC (Bld) 18.1 % Normal [facility] Comment on above: Performed By: #### 7 , 7599, 6399 #### [facility] [place] [address] Foundry Supervisor: Yash Campuzano MD MCH (RBC) [Entitic mass] 32.9 pg Normal 27.0-33.0 [facility] Comment on above: Performed By: #### 7 , 7599, 6399 #### [facility] [place] [address] Foundry Supervisor: Yash Campuzano MD MCHC (RBC) [Mass/Vol] 35.4 g/dL Normal 32.0-36.[address] [facility] Comment on above: Performed By: #### 7 , 7599, 6399 #### [facility] [place] [address] Found[employer] Supervisor: Yash Campuzano MD MCV (RBC) [Entitic vol] 92.9 fL Normal 80.0-100.0 [facility] Comment on above: Performed By: #### 7 , 7599, 6399 #### [facility] of [address], [address] [place] [address] Foundry Supervisor: Yash Campuzano MD Monocytes (Bld) [#/Vol] 0.531 10*3/uL Normal 200-950 [facility] Comment on above: Performed By: #### 7 13, 7599, 6399 #### [facility] of [address], [address] [place] [address] Foundry Supervisor: Yash Campuzano MD Monocytes/100 WBC (Bld) 9.0 % Normal [facility] Comment on above: Performed By: #### 7 13, 7599, 6399 #### [facility] [place] [address] Found[employer] Supervisor: Yash Campuzano MD Neutrophils (Bld) [#/Vol] 3.953 10*3/uL Normal 8229-5744 [facility] Comment on above: Performed By: #### 7 13, 7599, 6399 #### [facility] of [address], [address] [place] [address] Foundry Supervisor: Yash Campuzano MD Neutrophils/100 WBC (Bld) 67 % Normal [facility] Comment on above: Performed By: #### 7 13, 7599, 6399 #### [facility] [place] [address] Foundry Supervisor: Yash Campuzano MD Platelet mean volume (Bld) [Entitic vol] 11.0 fL Normal 7.5-12.5 [facility] Comment on above: Performed By: #### 7 13, 7599, 6399 #### [facility] [place] [address] Found[employer] Supervisor: Yash Campuzano MD Platelets (Bld) [#/Vol] 200 10*3/uL Normal 140-400 [facility] Comment on above: Performed By: #### 7 13, 760, 6399 #### [facility] [place] [address] Found[employer] Supervisor: Yash Campuzano MD RBC (Bld) [#/Vol] 4.53 10*6/uL Normal 4.20-5.80 [facility] Comment on above: Performed By: #### 7 13, 7600, 6399 #### [facility] [address], [address] [place] [address] Foundry Supervisor: Yash Campuzano MD WBC (Bld) [#/Vol] 5.9 10*3/uL Normal 3.8-10.8 [facility] Comment on above: Performed By: #### 7 13, 7600, 6399 #### [facility] [address], [address] [place] [address] Foundry Supervisor: Yash Campuzano MD LIPID PANEL, [address] Cholesterol [Mass/Vol] 218 mg/dL High <200 [facility] Comment on above: Order Comment: FASTI NG:YES FASTING: YES Performed By: #### 7 13, 7600, 6399 #### [facility] [place] [address] Foundry Supervisor: Yash Campuzano MD Cholesterol in HDL [Mass/Vol] 55 mg/dL Normal > OR = 40 [facility] Comment on above: Order Comment: FASTI NG:YES FASTING: YES Performed By: #### 7 13, 7600, 6399 #### [facility] [place] [address] Found[employer] Supervisor: Yash Campuzano MD Cholesterol in LDL [...] LDL-C. Gennaro ALMANZAR et al. KO. 2013;310(19): 7662-1725 (http://education.[employer]/faq/XPH588) Performed By: #### 7 13, 7600, 6399 #### [facility] [address], [address] [place] [address] Foundry Supervisor: Yash Campuzano MD Cholesterol.total/Cho lesterol in HDL [Mass ratio] 4.0 {ratio} Normal <5.0 [facility] Comment on above: Order Comment: FASTI NG:YES FASTING: YES Performed By: #### 7 , 687, 7468 #### [facility] [place] [address] [employer] Supervisor: Yash Campuzano MD NON HDL CHOLESTEROL 163 mg/dL (calc) High <130 [facility] Comment on above: Order Comment: FASTI NG:YES FASTING: YES Result Comment: For patients with diabetes plus 1 major ASCVD risk factor, treating to a non-HDL-C goal of <100 mg/dL (LDL-C of <70 mg/dL) is considered a therapeutic option. Performed By: #### 7 875, 5519 #### [facility] [place] [address] Found[employer] Supervisor: Yash Campuzano MD Triglyceride [Mass/Vol] 200 mg/dL High <150 [facility] Comment on above: Order Comment: FASTI NG:YES FASTING: YES Result Comment: If a non-fasting specimen was collected, consider repeat triglyceride testing on a fasting specimen if clinically indicated. Marquise et al. J. of Clin. Lipidol. 2015;9:129-169. Performed By: #### 7 , 724, 5880 #### [facility] [place] [address] Found[employer] Supervisor: Yash Campuzano MD PHENYTOINon 04-18-2021 Phenytoin [Mass/Vol] 25.0 ug/mL High 10.0-20.0 [facility] Comment on above: Performed By: #### 7 , 972, 1742 #### [facility] [place] [address] Found[employer] Supervisor: Yash Campuzano MD APTTon 11-20-2020 aPTT Coag (Bld) [Time] 33.4 s Normal 25.0-35.0 [facility] Comment on above: Result Comment: ALL RESULTS [...] THIS PURPOSE. Performed By: #### 5 6101, 92987 ####[facility] BNP EDon 11-20-2020 Natriuretic peptide B (Bld) [Mass/Vol] 111 pg/mL High 0-100 [facility] Comment on above: Result Comment: Give n the appropriate clinical setting a BNP result of >100 pg/mL indicates congestive heart failure. Performed By: #### 3 0935 #### [facility] [address] CBC W/DIFFon 11-20-2020 ABS IMM GRANS 0.0 10*3/uL Normal 0.0-0.2 [facility] Comment on above: Performed By: #### 5 0103 ####[facility] ABS NEUTROPHILS 3.9 10*3/uL Normal 1.6-7.6 [facility] Comment on above: Performed By: #### 5 0103 ####[facility] Basophils (Bld) [#/Vol] 0.1 10*3/uL Normal 0.0-0.2 [facility] Comment on above: Performed By: #### 5 0103 ####[facility] Basophils/100 WBC (Bld) 1.0 % Normal 0.0-1.0 [facility] Comment on above: Performed By: #### 5 0103 ####[facility] [facility].[address] Eosinophils (Bld) [#/Vol] 0.3 10*3/uL Normal 0.0-0.5 [facility] Comment on above: Performed By: #### 5 0103 ####[facility] [facility].[address] Eosinophils/100 WBC (Bld) 5.1 % Normal 0.0-6.0 [facility] Comment on above: Performed By: #### 5 0103 ####[facility] [facility].[address] Erythrocyte distribution width (RBC) [Ratio] 13.1 % Normal 11.5-15.0 [facility] Comment on above: Performed By: #### 5 3 ####[facility] [facility].[address] Hematocrit (Bld) [Volume fraction] 45.4 % Normal 39.0-50.0 [facility] Comment on above: Performed By: #### 5 0103 ####[facility] [facility].[address] Hemoglobin (Bld) [Mass/Vol] 14.8 g/dL Normal 13.0-17.0 [facility] Comment on above: Performed By: #### 5 0103 ####[facility] IMMATURE GRANS 0.3 % Normal 0.0-1.0 [facility] Comment on above: Performed By: #### 5 0103 ####[facility] [place] [address].[address] Lymphocytes (Bld) [#/Vol] 1.0 10*3/uL Low 1.2-4.0 [facility] Comment on above: Performed By: #### 5 0103 ####[facility] [facility] [place] [address], [facility] Lymphocytes/100 WBC (Bld) 17.5 % Low 20.0-45.0 [facility] Comment on above: Performed By: #### 5 3 ####[facility] [facility] [place] [address], [facility] MCH (RBC) [Entitic mass] 32.5 pg Normal 27.0-33.0 [facility] Comment on above: Performed By: #### 5 3 ####[facility] [facility].[address] MCHC (RBC) [Mass/Vol] 32.6 g/dL Normal 32.0-35.0 [facility] Comment on above: Performed By: #### 5 3 ####[facility] [facility].[address] MCV (RBC) [Entitic vol] 99.6 fL High 82.0-98.0 [facility] Comment on above: Performed By: #### 5 0103 ####[facility] [facility] [place] [address], [facility] Monocytes (Bld) [#/Vol] 0.6 10*3/uL Normal 0.1-1.0 [facility] Comment on above: Performed By: #### 5 0103 ####[facility] [facility] [place] [address], [facility] MONOS 9.4 % Normal 5.0-12.0 [facility] Comment on above: Performed By: #### 5 3 ####[facility] [facility] [place] [address], [facility] Neutrophils/100 WBC (Bld) 66.7 % Normal 40.0-72.0 [facility] Comment on above: Performed By: #### 5 0103 ####[facility] [facility] [place] [address], [facility] Nucleated RBC/100 WBC (Bld) [Ratio] 0 % Normal 0-0 [facility] Comment on above: Performed By: #### 5 102 ####[facility] [facility] [place] [address], [facility] PLAT CNT 175 10*3/uL Normal 150-400 [facility] Comment on above: Performed By: #### 5 0103 ####[facility] [facility] [place] [address], [facility] RBC (Bld) [#/Vol] 4.56 10*6/uL Normal 4.20-5.70 [facility] Comment on above: Performed By: #### 5 102 ####[facility] [place] [address], [facility] WBC (Bld) [#/Vol] 5.88 10*3/uL Normal 4.00-10.60 [facility] Comment on above: Performed By: #### 5 3 ####[facility] [facility].[address] COMP METABOLIC PANELon 11-20 Albumin [Mass/Vol] 4.0 g/dL Normal 3.5-5.7 [facility] Comment on above: Performed By: #### 0 0121, 39753, 90022, 10911 #### [facility] [address] [place] [address], [facility] ALKALINE PHOSPH 130 IU/L High 34-104 [facility] Comment on above: Performed By: #### 0 0121, 08241, 92715, 40921 #### [facility] [address] [place] [address], [facility] ALT [Catalytic activity/Vol] 18 U/L Normal 7-52 [facility] Comment on above: Performed By: #### 0 0121, 64227, 45191, 60260 #### [facility] [address] [place] [address], [place] AST [Catalytic activity/Vol] 19 U/L Normal 13-39 [facility] Comment on above: Performed By: #### 0 0121, 27540, 67437, 12669 #### [facility] [address] [place] [address], [place] Bilirubin [Mass/Vol] 0.4 mg/dL Normal 0.3-1.0 [facility] Comment on above: Performed By: #### 0 0121, 94698, 20832, 32227 #### [facility] [address] [place] [address], [place] Calcium [Mass/Vol] 9.0 mg/dL Normal 8.6-10.3 [facility] Comment on above: Performed By: #### 0 0121, 32385, 22035, 83849 #### [facility] [address] [place] [address], [place] Chloride [Moles/Vol] 103 mmol/L Normal 98-107 [facility] Comment on above: Performed By: #### 0 0121, 90849, 57946, 11180 #### [facility] [address] [place] [address], [place] CO2 [Moles/Vol] 28 mmol/L Normal 21-31 [facility] Comment on above: Performed By: #### 0 0121, 41786, 33051, 47978 #### [facility] [address] [place] [address], [place] Creatinine [Mass/Vol] 0.77 mg/dL Normal 0.70-1.30 [facility] Comment on above: Performed By: #### 0 0121, 41194, 65447, 21460 #### [facility] [address] [place] [address], [place] GFR/1.73 sq M.predicted among blacks MDRD (S/P/Bld) [Vol rate/Area] mL/min/{1.73_m2} Normal >60 [facility] Comment on above: Performed By: #### 0 0121, 92216, 99560, 99725 #### [facility] [address] [place] [address], [place] GFR/1.73 sq M.predicted among non-blacks MDRD (S/P/Bld) [Vol rate/Area] mL/min/{1.73_m2} Normal >60 [facility] Comment on above: Performed By: #### 0 0121, 59802, 60256, 08400 #### [facility] [address] [place] [address], [place] Glucose [Mass/Vol] 88 mg/dL Normal 70-100 [facility] Comment on above: Performed By: #### 0 0121, 46770, 65478, 29198 #### [facility] [address] [place] [address], [place] Potassium [Moles/Vol] 4.9 mmol/L Normal 3.5-5.1 [facility] Comment on above: Performed By: #### 0 0121, 05932, 69236, 35530 #### [facility] [address] [place] [address], [place] Protein [Mass/Vol] 7.3 g/dL Normal 6.0-8.3 [facility] Comment on above: Performed By: #### 0 0121, 01099, 85483, 29793 #### [facility] [address] [place] [address], [place] Sodium [Moles/Vol] 138 mmol/L Normal 136-145 [facility] Comment on above: Performed By: #### 0 0121, 14287, 76488, 40187 #### [facility] [address] [place] [address], [place] Urea nitrogen [Mass/Vol] 15 mg/dL Normal 7-25 [facility] Comment on above: Performed By: #### 0 0121, 00230, 37366, 48078 #### [place] [id number], [facility] CTA HEADon 11-20-2020 CTA HEAD [facility] Department of Radiology [address] [place] [address] ======== Patient Name: NAZARIO CORTES : 1955 Sex: M Age: Race: White Pt. Location: [facility] Patient Status: E Ordered Date: [...] stenosis of the major vessels of the [place] of [place]. origin of bilateral posterior cerebral arteries. IMPRESSION: Normal CTA of the brain. All CT scans at this facility use dose modulation, iterative reconstruction, and/or weight based dosing when appropriate to reduce radiation dose to as low as reasonably achievable. Electronically signed: Dhaval Ghotra. Transcribed by: [email or web address], User Resident: Electronically Signed by: DHAVAL GHOTRA @ 11/20/2020 12:58 PM Normal [facility] Comment on above: Order Comment: Bleed CTA NECKon 11-20-2020 CTA NECK [facility] Department of Radiology [address] [place] [id number] ======== Patient Name: NAZARIO CORTES : 1955 Sex: M Age: Race: White Pt. Location: [facility] Patient Status: E Ordered Date: [...] viewed on a separate workstation. The [place] Symptomatic Carotid Endarterectomy Trial (NASCET) method for [...] achievable Electronically signed: Dhaval Ghotra. Transcribed by: [email or web address], User Resident: Electronically Signed by: DHAVAL HGOTRA @ 11/20/2020 12:57 PM Normal [facility] DIRECT BILIon 11-20-2020 Bilirubin.direct [Mass/Vol] 0.1 mg/dL Normal 0.0-0.2 [facility] Comment on above: Order Comment: Liver Battery conflicts with Comprehensive Metabolic Panel. Liver Battery canceled and Direct Bilirubin added. Performed By: #### 0 0121, 36216, 62176, 92553 #### [facility] [address] [place] [address], [facility] LIPASE BLOODon 11-20-2020 LIPASE 27 Units/L Normal 11-82 [facility] Comment on above: Performed By: #### 0 0121, 69049, 69221, 85793 #### [facility] [address] [place] [address], [facility] POC SARS COV2 ANTIGEN NEGATI VEon 11-20-2020 POC SARS COV2 ANTIGEN N Negative Normal NEGATIVE [facility] Comment on above: Result Comment: Test performed on [employer] System for rapid detection of SARS-CoV-2. Negative [...] management. Performed By: #### 3 1919 #### [place] [address], [facility] PORTABLE CHEST 1 VIEWon 10-23 PORTABLE CHEST 1 VIEW [facility] Department of Radiology [address] [place] [id number] ======== Patient Name: NAZARIO CORTES : 1955 Sex: M Age: Race: White Pt. Location: [facility] Patient Status: E Ordered Date: [...] reports Electronically signed: Dhaval Ghotra. Transcribed by: [email or web address], User Resident: JESSENIA ALFORD Electronically Signed by: DHAVAL GHOTRA @ 11/20/2020 12:32 PM I personally read this/these film(s) with this resident Normal [facility] Comment on above: Order Comment: evalu ate for Pneumonia PROTHROMBIN TIMEon 0 INR Coag (PPP) [Relative time] 0.95 {INR} Normal 0.91-1.16 [facility] Comment on above: Result Comment: ACCC P [...] CHEST 1995;[id number]. Performed By: #### 5 6101, 19712 ####[facility] PT Coag (PPP) [Time] 12.7 s Normal 12.3-14.8 [facility] Comment on above: Result Comment: ALL RESULTS MUST BE INTERPRETED WITH RESPECT TO BLOOD DRAWING ARTIFACT OR DILUTION ERROR OF ANTICOAGULANT AT THE TIME OF SAMPLING. Performed By: #### 5 6101, 38066 ####[facility] [address] TROPONIN-Ion 11-20-2020 Troponin I.cardiac [Mass/Vol] 0.00 ng/mL Normal 0.00-0.04 [facility] Comment on above: Order Comment: No: D o not add to previous draw Result Comment: REFE RENCE RANGES: 0.00 - 0.14 ng/ml NEGATIVE 0.15 - 0.25 ng/ml INDETERMINATE > 0.25 ng/ml INDICATIVE OF AN M.I. Performed By: #### 3 5200 #### [facility] [address] [place] [address], [facility] Troponin I.cardiac [Mass/Vol] 0.00 ng/mL Normal 0.00-0.04 [facility] Comment on above: Result Comment: REFE RENCE RANGES: 0.00 - 0.14 ng/ml NEGATIVE 0.15 - 0.25 ng/ml INDETERMINATE > 0.25 ng/ml INDICATIVE OF AN M.I. Performed By: #### 0 0121, 65346, 66012, 11939 #### [facility] [address] Vital Signs Date Time Vital Sign Value Performing Clinician Facility 02-20-2025 13:33-0400 Body height 185.4 cm Jignesh Gonsalez MD Work Phone: [facility] 02-20-2025 13:33-0400 Body mass index (BMI) [Ratio] 40.77 kg/m2 Jignesh Gonsalez MD Work Phone: [facility] 02-20-2025 13:33-0400 Body temperature 96.6 [degF] Jignesh Gonsalez MD Work Phone: [facility] 02-20-2025 13:33-0400 Body weight 140.16 kg Jignesh Gonsalez MD Work Phone: [facility] 02-20-2025 13:33-0400 Diastolic blood pressure 76 mm[Hg] Jignesh Gonsalez MD Work Phone: [facility] 02-20-2025 13:33-0400 Heart rate 85 /min Jignesh Gonsalez MD Work Phone: [facility] 02-20-2025 13:33-0400 Respiratory rate 22 /min Jignesh Gonsalez MD Work Phone: [facility] 02-20-2025 13:33-0400 SaO2% (BldA) [Mass fraction] 92 % Jignesh Gonsalez MD Work Phone: [facility] 02-20-2025 13:33-0400 Systolic blood pressure 154 mm[Hg] Jignesh Gonsalez MD Work Phone: [facility] 01-21-2025 13:40-0500 Body height 185.4 cm Jignesh Gonsalez MD Work Phone: [facility] 01-21-2025 13:40-0500 Body mass index (BMI) [Ratio] 41.03 kg/m2 Jignesh Gonsalez MD Work Phone: [facility] 01-21-2025 13:40-0500 Body temperature 97.5 [degF] Jignesh Gonsalez MD Work Phone: [facility] 01-21-2025 13:40-0500 Body weight 141.07 kg Jignesh Gonsalez MD Work Phone: [facility] 01-21-2025 13:40-0500 Diastolic blood pressure 64 mm[Hg] Jignesh Gonsalez MD Work Phone: [facility] 01-21-2025 13:40-0500 Heart rate 87 /min Jignesh Gonsalez MD Work Phone: [facility] 01-21-2025 13:40-0500 Respiratory rate 20 /min Jignesh Gonsalez MD Work Phone: [facility] 01-21-2025 13:40-0500 SaO2% (BldA) [Mass fraction] 91 % Jignesh Gonsalez MD Work Phone: [facility] 01-21-2025 13:40-0500 Systolic blood pressure 130 mm[Hg] Jignesh Gonsalez MD Work Phone: [facility] 12-19-2024 13:35-0500 Body height 185.4 cm Amrik [...] 185.42 cm MD Jignesh Gonsalez Work Phone: [facility] 09-07-2024 14:54-0400 Body mass index (BMI) [Ratio] 39.2 kg/m2 MD Jignesh Gonsalez Work Phone: [facility] 09-07-2024 14:54-0400 Body temperature 96.8 [degF] MD Jignesh Gonsalez Work Phone: [facility] 09-07-2024 14:54-0400 Body weight 134.94 kg MD Jignesh Gonsalez Work Phone: [facility] 09-07-2024 14:54-0400 Diastolic blood pressure 78 mm[Hg] MD Jignesh Gonsalez Work Phone: [facility] 09-07-2024 14:54-0400 Heart rate 93 /min MD Jignesh Gonsalez Work Phone: [facility] 09-07-2024 14:54-0400 Respiratory rate 20 /min MD Jignesh Gonsalez Work Phone: [facility] 09-07-2024 14:54-0400 SaO2% (BldA) [Mass fraction] 94 % MD Jignesh Gonsalez Work Phone: [facility] 09-07-2024 14:54-0400 Systolic blood pressure 119 mm[Hg] MD Jignesh Gonsalez Work Phone: [facility] 08-16-2024 10:34-0400 Body height 185.42 cm [facility] 08-16-2024 10:34-0400 Body mass index (BMI) [Ratio] 39 kg/m2 [facility] 08-16-2024 10:34-0400 Body temperature 96.8 [degF] [facility] 08-16-2024 10:34-0400 Body weight 134.26 kg [facility] 08-16-2024 10:34-0400 Diastolic blood pressure 77 mm[Hg] [facility] 08-16-2024 10:34-0400 Heart rate 73 /min [facility] 08-16-2024 10:34-0400 Respiratory rate 18 /min [facility] 08-16-2024 10:34-0400 SaO2% (BldA) [Mass fraction] 96 % [facility] 08-16-2024 10:34-0400 Systolic blood pressure 125 mm[Hg] [facility] 08-09-2024 13:10-0400 Body height 185.42 cm MD Jignesh Gonsalez Work Phone: [facility] 08-09-2024 13:10-0400 Body mass index (BMI) [Ratio] 39 kg/m2 MD Jignesh Gonsalez Work Phone: [facility] 08-09-2024 13:10-0400 Body temperature 98.5 [degF] MD Jignesh Gonsalez Work Phone: [facility] 08-09-2024 13:10-0400 Body weight 134.26 kg MD Jignesh Gonsalez Work Phone: [facility] 08-09-2024 13:10-0400 Diastolic blood pressure 64 mm[Hg] MD Jignesh Gonsalez Work Phone: [facility] 08-09-2024 13:10-0400 Heart rate 75 /min MD Jignesh Gonsalez Work Phone: [facility] 08-09-2024 13:10-0400 Respiratory rate 18 /min MD Jignesh Gonsalez Work Phone: [facility] 08-09-2024 13:10-0400 SaO2% (BldA) [Mass fraction] 93 % MD Jignesh Gonsalez Work Phone: [facility] 08-09-2024 13:10-0400 Systolic blood pressure 98 mm[Hg] MD Jignesh Gonsalez Work Phone: [facility] 05-15-2024 15:36-0400 Body height 185.42 cm MD Jignesh Gonsalez Work Phone: [facility] 05-15-2024 15:36-0400 Body mass index (BMI) [Ratio] 36.9 kg/m2 MD Jignesh Gonsalez Work Phone: [facility] 05-15-2024 15:36-0400 Body temperature 97.5 [degF] MD Jignesh Gonsalez Work Phone: [facility] 05-15-2024 15:36-0400 Body weight 127 kg MD Jignesh Gonsalez Work Phone: [facility] 05-15-2024 15:36-0400 Diastolic blood pressure 74 mm[Hg] MD Jignesh Gonsalez Work Phone: [facility] 05-15-2024 15:36-0400 Heart rate 81 /min MD Jignesh Gonsalez Work Phone: [facility] 05-15-2024 15:36-0400 Respiratory rate 18 /min MD Jignesh Gonsalez Work Phone: [facility] 05-15-2024 15:36-0400 SaO2% (BldA) [Mass fraction] 93 % MD Jignesh Gonsalez Work Phone: [facility] 05-15-2024 15:36-0400 Systolic blood pressure 119 mm[Hg] MD Jignesh Gonsalez Work Phone: [facility] 04-23-2024 13:06-0400 Body height 185.42 cm [facility] 04-23-2024 13:06-0400 Body mass index (BMI) [Ratio] 36.9 kg/m2 [facility] 04-23-2024 13:06-0400 Body temperature 97.3 [degF] [facility] 04-23-2024 13:06-0400 Body weight 127 kg [facility] 04-23-2024 13:06-0400 Diastolic blood pressure 56 mm[Hg] [facility] 04-23-2024 13:06-0400 Heart rate 80 /min [facility] 04-23-2024 13:06-0400 Respiratory rate 18 /min [facility] 04-23-2024 13:06-0400 SaO2% (BldA) [Mass fraction] 97 % [facility] 04-23-2024 13:06-0400 Systolic blood pressure 106 mm[Hg] [facility] 07-05-2023 10:00-0400 Body height 185.42 cm Luiz Riggs Other [employer] [facility] Other 07-05-2023 10:00-0400 Body mass index (BMI) [Ratio] 37.86 kg/m2 Luiz Riggs Other [employer] [facility] Other 07-05-2023 10:00-0400 Body weight 130.18 kg Luiz Riggs Other [employer] Other 07-05-2023 10:00-0400 Diastolic blood pressure 76 mm[Hg] Luiz Riggs Other [employer] Other 07-05-2023 10:00-0400 Systolic blood pressure 126 mm[Hg] Luiz Riggs Other [employer] Other 04-06-2022 17:40-0400 Body height 185.42 cm Neelam Morris Other [employer] Other 04-06-2022 17:40-0400 Body mass index (BMI) [Ratio] 36.15 kg/m2 Neelam Morris Other [employer] Other 04-06-2022 17:40-0400 Body temperature 98 [degF] Neelam Morris Other [employer] Other 04-06-2022 17:40-0400 Body weight 124.29 kg Neelam Morris Other [employer] Other 04-06-2022 17:40-0400 Diastolic blood pressure 69 mm[Hg] Neelam Morris Other [employer] Other 04-06-2022 17:40-0400 Respiratory rate 18 /min Neelam Morris Other [employer] Other 04-06-2022 17:40-0400 SaO2% (BldA) [Mass fraction] 95 % Neelam Morris Other [employer] Other 04-06-2022 17:40-0400 Systolic blood pressure 123 mm[Hg] Neelam Morris Other [employer] Other 12-28-2021 17:00-0500 Body height 185.42 cm Alex Elspiper Other [facility] Other 12-28-2021 17:00-0500 Body mass index (BMI) [Ratio] 37.47 kg/m2 Alex Bonilla Other [facility] Other 12-28-2021 17:00-0500 Body weight 128.82 kg Alex Bonilla Other [facility] Other Encounters Encounter Date Encounter Type Care Provider Facility Start: 02-22-2025 End: 02-27-2025 Clinisync Result Encounter Jignesh Gonsalez MD Work Phone: [facility] Unsolicited Start: 02-22-2025 End: 02-27-2025 Clinisync Result Encounter Jignesh Gonsalez MD Work Phone: [facility] Unsolicited Start: 02-20-2025 End: 02-20-2025 Bamboo flowsheet Jignesh Gonsalez MD Work Phone: [facility] Start: 02-20-2025 End: 02-20-2025 Bamboo flowsheet Jignesh Gonsalez MD Work Phone: [facility] Start: 02-20-2025 End: 02-20-2025 Office outpatient visit 25 minutes Jignesh Gonsalez MD Work Phone: [facility] Comment on above: Benign essential hyp ertension (CMS/HCC) (Primary Dx); Bilateral leg edema; Major depressive disorder, recurrent episode, mild (HCC) (CMS/HCC); Degenerative lumbar spinal stenosis; 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); SOB (shortness of breath) on exertion Start: 02-20-2025 End: 02-20-2025 ambulatory JIGNESH GONSALEZ Not Available Start: 02-06-2025 End: 02-06-2025 ambulatory CHARI VELA Not Available Start: 01-28-2025 End: 01-28-2025 Refill Jignesh Gonsalez MD Work Phone: [facility] Comment on above: Degenerative lumbar spinal stenosis Start: 01-22-2025 End: 01-22-2025 ambulatory [facility] Start: 01-21-2025 End: 01-21-2025 Bamboo flowsheet Jignesh Gonsalez MD Work Phone: [facility] Start: 01-21-2025 End: 01-21-2025 Bamboo flowsheet Jignesh Gonsalez MD Work Phone: [facility] Start: 01-21-2025 End: 01-21-2025 Office outpatient visit 15 minutes Jignesh Gonsalez MD Work Phone: [facility] Comment on above: Coronary artery dise ase involving [place] coronary artery of [place] heart without angina pectoris (CMS/HCC) (Primary Dx); SOB (shortness of breath) on exertion Start: 01-21-2025 End: 01-21-2025 ambulatory JIGNESH GONSALEZ Not Available Start: 01-12-2025 Evaluation and manag ement of inpatient [facility] Start: 01-11-2025 Evaluation and manag ement of inpatient [facility] Start: 01-11-2025 Evaluation and manag ement of inpatient [facility] Start: 01-11-2025 End: 01-13-2025 Evaluation and management of inpatient [facility] Start: 12-19-2024 End: 12-19-2024 Roxy Pérez MD [...] Refill Jignesh Gonsalez MD Work Phone: [facility] Comment on above: Seizure disorder (CM S/HCC) Start: 11-27-2024 End: 11-28-2024 Orders Only Jignesh Gonsalez MD Work Phone: [facility] Comment on above: Deviated nasal septu m (Primary Dx); Chronic rhinosinusitis Start: 11-27-2024 End: 11-27-2024 Patient encounter procedure Jose M Rea DO Work Phone: [facility] Comment on above: Screening for malign ant neoplasm of colon (Primary Dx) Start: 11-22-2024 End: 11-22-2024 Postop follow up visit related to original px Jignesh Gonsalez MD Work Phone: [facility] Comment on above: Medicare annual well [...] 10-30-2024 End: 10-30-2024 Clinical Support Chari Vela [facility] Work Phone: [facility] Comment on [...] Start: 10-17-2024 End: 10-17-2024 ambulatory Yancy Lawson Facility:[facility] Start: 10-11-2024 End: 10-11-2024 Refill Jignesh Gonsalez MD Work Phone: [facility] Comment on above: Degenerative lumbar spinal stenosis Start: 09-25-2024 End: 09-25-2024 Refill Jignesh Gonsalez MD Work Phone: [facility] Comment on above: Seizure disorder (CM S/HCC) Start: 09-07-2024 End: 09-07-2024 ambulatory MD Jignesh Gonsalez Work Phone: [facility] Work Phone: Start: 09-07-2024 End: 09-07-2024 Patient encounter procedure MD Jignesh Gonsalez Work Phone: [facility] Physician [facility] [place] Work Phone: Start: 08-16-2024 End: 08-16-2024 ambulatory [facility] Work Phone: Start: 08-16-2024 End: 08-16-2024 Patient encounter procedure [facility] Physician [facility] [place] Work Phone: Start: 08-09-2024 End: 08-09-2024 ambulatory MD Jignesh Gonsalez Work Phone: [facility] Work Phone: Start: 08-09-2024 End: 08-09-2024 Patient encounter procedure MD Jignesh Gonsalez Work Phone: [facility] [place] Work Phone: Start: 08-08-2024 ambulatory [facility] Start: 07-26-2024 End: 07-26-2024 ambulatory [facility] Start: 07-18-2024 End: 07-18-2024 Timo Gonsalez MD Work Phone: [facility] Comment on above: Seizure disorder (CM S/HCC) Start: 06-13-2024 End: 06-13-2024 ambulatory IMELDA THOMPSON Not Available Start: 05-21-2024 End: 05-21-2024 ambulatory JIGNESH GONSALEZ Not Available Start: 05-16-2024 End: 05-16-2024 ambulatory IMELDA THOMPSON Not Available Start: 05-15-2024 End: 05-15-2024 ambulatory MD Jignesh Gonsalez Work Phone: [facility] Work Phone: Start: 05-15-2024 End: 05-15-2024 Patient encounter procedure MD Jignesh Gonsalez Work Phone: [facility] Physician [facility] [place] Work Phone: Start: 04-23-2024 End: 04-23-2024 ambulatory [facility] Work Phone: Start: 04-23-2024 End: 04-23-2024 Patient encounter procedure [facility] Physician [facility] [place] Work Phone: Start: 04-17-2024 End: 04-17-2024 ambulatory CORNELIO COTTER Not Available Start: 03-07-2024 End: 03-07-2024 ambulatory AMRIK PÉREZ Not Available Start: 12-30-2023 ambulatory Chris CAMARILLO Facili ty:[facility] [place] Start: 12-21-2023 Telephone encounter Epifanio dennison MD Work Phone: [facility] Start: 12-20-2023 ambulatory [facility] Start: 07-18-2023 End: 07-19-2023 ambulatory JIGNESH GONSALEZ Facility:[facility] Start: 07-18-2023 End: 07-18-2023 Patient encounter procedure Chris CAMARILLO [facility] Start: 07-05-2023 Office outpatient ne w 30 minutes Luiz Riggs [facility] Start: 07-05-2023 End: 07-05-2023 ambulatory MD Jignesh Gonsalez Work Phone: [facility] Work Phone: Start: 07-05-2023 End: 07-05-2023 Patient encounter procedure MD Jignesh Gonsalez Work Phone: [facility] Work Phone: Start: 01-07-2023 End: 01-08-2023 ambulatory [...] 04-06-2022 End: 04-06-2022 ambulatory Neelam Morris Other [facility] Other Start: 04-06-2022 Office outpatient vi sit 15 minutes Neelam Morris [facility] [place] Start: 12-28-2021 End: 12-28-2021 ambulatory Alex Bonilla Other [facility] Other Start: 12-28-2021 Office outpatient ne w 30 minutes Alex Bonilla [facility] Start: 11-20-2020 End: 11-20-2020 Emergency department patient visit KARINA JAY Facility:[facility] Procedures Date Procedure Procedure Detail Performing Clinician Start: 02-22-2025 RT PULMONARY FUNCTION TEST Jignesh Gonsalez MD Work Phone: Start: 12-11-2024 Colonoscopy Amrik quezada MD Work [...] Comment on above: Performed By: #### [facility] #### [facility] [address] [place] [address] Dr. Jeimy Tenorio Extraction of cataract Patri luis antonio CAMARILLO Procedure on foot Chris MERINO Plan of Treatment Date Care Activity Detail Author Start: 12-11-2034 Screening for malign ant neoplasm of colon [facility] Start: 11-22-2025 Medicare Annual Well ness (AWV) Medicare Annual Wellness (AWV) [facility] Start: 05-23-2025 End: 05-23-2025 Patient encounter procedure 05/23/2025 1:45 PM EDT Office Visit [facility] [address] [place] [phone] Jignesh Gonsalez MD [address] [place] [phone] [facility] Start: 02-20-2025 End: 02-20-2025 Patient encounter procedure [facility] Comment on above: Arrived Start: 01-21-2025 End: 01-21-2025 Patient encounter procedure 01/21/2025 1:45 PM EST Office Visit [facility] [address] [place] [phone] Jignesh Gonsalez MD [address] [place] [phone] Arrived [facility] Comment on above: Arrived Start: 12-19-2024 End: 12-19-2024 Patient encounter procedure 12/19/2024 1:40 PM EST Office Visit [facility] [address] [place] [phone] Amrik Pérez MD [address] [place] [address] Deviated nasal septum; Chronic rhinosinusitis [facility] Comment on above: Deviated nasal septu m; Chronic rhinosinusitis Start: 11-26-2024 End: 11-26-2024 Patient encounter procedure 11/26/2024 2:00 PM EST Office Visit [facility] [address] [place] [address] Jose M Rea, [address] [place] [address] [facility] Start: 11-22-2024 End: 11-22-2024 Patient encounter procedure [facility] Comment on above: Arrived Start: 11-22-2024 End: 11-22-2025 Basic metabolic 1998 panel - Serum or Plasma Basic metabolic panel Lab Routine Encounter for long-term current use of medication Expected: 11/22/2024 (Approximate), Expires: 11/22/2025 [facility] Work Phone: Comment on above: Expected: 11/22/2024 (Approximate), Expires: 11/22/2025 Start: 11-22-2024 End: 11-22-2025 CBC W Auto Differential panel - Blood CBC and differential Lab Routine Encounter for long-term current use of medication Expected: 11/22/2024 (Approximate), Expires: 11/22/2025 [facility] Comment on above: Expected: 11/22/2024 (Approximate), Expires: 11/22/2025 Start: 11-22-2024 End: 11-22-2025 Hepatic function 2000 panel - Serum or Plasma Hepatic function panel Lab Routine Encounter for long-term current use of medication Expected: 11/22/2024 (Approximate), Expires: 11/22/2025 [facility] Comment on above: Expected: 11/22/2024 (Approximate), Expires: 11/22/2025 Start: 11-22-2024 End: 11-22-2025 Lipid 1996 panel - Serum or Plasma Lipid panel Lab Routine Dyslipidemia (CMS/HCC) Expected: 11/22/2024 (Approximate), Expires: 11/22/2025 [facility] Comment on above: Expected: 11/22/2024 (Approximate), Expires: 11/22/2025 Start: 11-22-2024 End: 11-22-2025 Prostate specific Ag [Mass/volume] in Serum or Plasma PSA Lab Routine Screening PSA (prostate specific antigen) Expected: 11/22/2024 (Approximate), Expires: 11/22/2025 [facility] Comment on above: Expected: 11/22/2024 (Approximate), Expires: 11/22/2025 Start: 11-22-2024 End: 11-22-2025 Thyrotropin [Units/volume] in Serum or Plasma TSH Lab Routine Class 3 severe obesity due to excess calories with serious comorbidity and body mass index (BMI) of 40.0 to 44.9 in adult ([facility]) Expected: 11/22/2024 (Approximate), Expires: 11/22/2025 [facility] Comment on above: Expected: 11/22/2024 (Approximate), Expires: 11/22/2025 Start: 10-25-2024 End: 10-25-2024 Patient encounter procedure [facility] Comment on above: Arrived Start: [...] Visit [facility] [address] [place] [address] Jignesh Gonsalez MD [address] [place] [address] [facility] Start: 07-22-2024 Influenza vaccination Influenza Vacc ine (#1) [facility] Start: 12-30-2023 COVID-19 Vaccine ( season) COVID-19 Vaccine ( season) [facility] Start: 08-16-2023 Adult BMI Screening Adult BMI Screen ing [facility] Start: 08-16-2023 Fall Risk Screening Fall Risk Screen ing [facility] Start: 08-16-2023 Tobacco Screening Tobacco Screening [facility] Start: 08-05-2021 Pneumococcal Vaccine : 65+ Years (2 of 2 - PCV) Pneumococcal Vaccine: 65+ Years (2 of 2 - PCV) [facility] Start: 1974 Administration of varicella zoster vaccine Zoster (Shingles) Vaccine (1 of 2) [facility] Start: 1974 DTaP,Tdap and Td Vaccines (1 - Tdap) DTaP,Tdap and Td Vaccines (1 - Tdap) [facility] Start: 1967 Depression Screening Depression Scre ening [facility] Start: 1955 Medicare Annual Well ness (AWV) Medicare Annual Wellness (AWV) [facility] Start: 1955 Medicare Annual Well ness Visit Medicare Annual Wellness Visit [facility] Start: 1955 Screening for malign ant neoplasm of colon [facility] MR Knee - right WO contrast MR knee right wo IV contrast Imaging Routine Chronic pain of right knee Internal derangement of right knee Ordered: 10/25/2024 [facility] Comment on above: Ordered: 10/25/2024 Pulmonary function report Pulmonary Function Test Imaging Routine SOB (shortness of breath) on exertion Ordered: 01/21/2025 [facility] Work Phone: Comment on above: Ordered: 01/21/2025 XR Knee - right 4 Views [facility] Immunizations Immunization Date Immunization Notes Care Provider Fa cility 10-11-2024 influenza virus vacc ine, unspecified formulation Jignesh Gonsalez MD Work Phone: [facility] 11-04-2023 Covid-19, Mrna, Lnp- s, Bivalent, Pf, 30mcg/0.3 ml Epifanio Kaufman MD Work Phone: [facility] 11-04-2023 Influenza, Seasonal, Quadrivalent, Adjuvanted Jignesh Gonsalez MD Work Phone: [facility] 11-04-2023 influenza virus vacc ine, unspecified formulation Jignesh Gonsalez MD Work Phone: [facility] 08-21-2022 influenza virus vacc ine, unspecified formulation Epifanio Kaufman MD Work Phone: [facility] 08-21-2022 Influenza, High-dose Seasonal, Quadrivalent, Preservative Free Jignesh Gonsalez MD Work Phone: [facility] 08-21-2022 SARS-COV-2 (COVID-19 ) Vaccine, Unspecified Epifanio Kaufman MD Work Phone: [facility] 08-06-2021 Influenza Vaccine, Quadrivalent, Adjuvanted Jignesh Gonsalez MD Work Phone: [facility] 02-25-2021 COVID-19, mRNA, LNP- S, PF, 100mcg/0.5mL Dose Jignesh Gonsalez MD Work Phone: [facility] 02-12-2021 COVID-19, mRNA, LNP- S, PF, 30mcg/0.3mL Dose Epifanio Kaufman MD Work Phone: [facility] 08-05-2020 influenza, injectabl e, quadrivalent, preservative [...] Hospital Payers Date Payer Category Payer Self-pay [id number] 2023 Medicaid [id number] 2023 Medicaid [id number] 2022 Medicare [id number] 2021 Medicare [id number] 2021 Unknown [id number] 2021 Medicare [id number] 2020 Medicare [id number] 2019 Unknown [id number] 1959 Medicare [id number] 2. [id number] 1955 Unknown [id number] 2.16.8 40.1.712610.3.579.2.647 1955 Unknown [id number] 2.16.84 0.1.119325.3.579.2.593 1955 Unknown [id number] 2.16.84 0.1.613751.3.579.2.593 1955 Unknown [id number] 2.16.84 0.1.182179.3.579.2.593 1955 Unknown [id number] 2.16.84 0.1.317852.3.579.2.593 1955 Unknown [id number] 2.16.84 0.1.085120.3.579.2.593 1955 Unknown [id number] 2.16.84 0.1.911695.3.579.2.593 1955 Unknown [id number] 2.16.84 0.1.255073.3.579.2.593 1955 Unknown [id number] 2.16.8 40.1.222399.3.579.2.1286 1955 Unknown [id number] 2.16.8 40.1.407447.3.579.2.727 5 Unknown [id number] 2.16.8 40.1.107877.3.579.2.727 1955 Unknown [id number] 2.16.84 0.1.337981.3.579.2.1259 1955 Unknown [id number] 2.16.84 0.1.426994.3.579.2.1259 1955 Unknown [id number] 2.16.84 0.1.403323.3.579.2.1259 1955 Unknown [id number] 2.16.84 0.1.132215.3.579.2.1259 1955 Unknown [id number] 2.16.84 0.1.952274.3.579.2.1259 1955 Unknown [id number] 2.16.84 0.1.413747.3.579.2.1259 1955 Unknown [id number] 2.16.84 0.1.607842.3.579.2.1259 1955 Unknown [id number] 2.16.84 0.1.597192.3.579.2.1259 1955 Unknown [id number] 2.16.84 0.1.416721.3.579.2.1259 1955 Unknown [id number] 2.16.84 0.1.426017.3.579.2.1259 1955 Unknown [id number] 2.16.84 0.1.080401.3.579.2.1259 1955 Unknown [id number] 2.16.84 0.1.294184.3.579.2.1259 1955 Unknown [id number] 2.16.84 0.1.927397.3.579.2.1259 1955 Unknown [id number] 2.16.84 0.1.717456.3.579.2.1259 Medicare [id number] Unknown [id number] 2.16.8 40.1.721616.3.579.2.531 Unknown [id number] 2.16.8 40.1.371170.3.579.2.531 Unknown [id number] 2.16.8 40.1.016804.3.579.2.531 Social History Date Type Detail Facility Start: 12-14-2023 End: 01-15-2025 Sex Assigned At [facility] Start: 1955 Sex Assigned At Male [facility] Tobacco smoking status No Smoking Status Entered [facility] [employer] Start: 04-23-2024 Tobacco smoking status [facility] Never smoked tobacco (finding) [facility] Start: 01-11-2024 End: 12-19-2024 Tobacco smoking status [facility] Ex-smoker [facility] Start: 11-21-1971 End: 04-18-1997 History of tobacco use Current smoker [facility] Start: 11-21-1971 End: 04-18-1997 History of tobacco use Cigarette Smoker [facility] Start: 01-11-2024 End: 12-19-2024 Tobacco use and exposure Smokeless tobacco non-user [facility] Start: 05-21-2024 End: 02-20-2025 Alcoholic beverage intake Lifetime non-drinker (finding) [facility] Start: 12-14-2023 End: 01-15-2025 History of [...] got money to buy more. Never true [facility] Start: 1955 Sex assigned at Not on file [facility] Start: 08-16-2022 Alcohol intake Ex-drinker (finding) [facility] NEGATED: Highlighted rowStart: NINF History of tobacco use Passive smoker [facility] Clinical Notes 11-21-2020 to 02-20-2025 Jignesh Gonsalez MD - 02/20/2025 2:16 PM EDAimee Gonsalez MD - 02/20/2025 2:16 PM Long Gonsalez MD - 02/20/2025 2:16 PM Long Gonsalez MD - 02/20/2025 2:16 PM EDT Note Date & Type Note Facility 02-20-2025 History of Presen t illness Narrative Associated Problem(s): SOB (shortness of breath) on exertion Signs of COPD and check PFTs. Use albuterol PRN. 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 Associated Problem(s): Major depressive disorder, recurrent episode, mild (HCC) (CMS/HCC) Symptoms stable and continue celexa. Associated Problem(s): Degenerative lumbar spinal stenosis Pain stable and use norco PRN. Use robaxin for spasms. Continue PT exercises. Associated Problem(s): Bilateral leg edema Edema worse and add aldactone. Stop potassium and continue lasix. Elevate legs PRN. Associated Problem(s): Benign essential hypertension (CMS/HCC) BP controlled and monitor PRN. Images from the original note were not included. Subjective Patient ID: Nathan Cortes is a 70 y.o. male who presents for Follow-up (3 m/Weight loss) and Ankle Pain. Follow up HTN, depression, back pain, edema and neuropathy. Checking BP PRN and typically controlled. BP normal today. Taking medication daily and tolerating without side effects. Depression stable. Occasional symptoms and at times down, sad, and no motivation. Still not want to be around others or leave house. Overall feels like symptoms tolerable and dealing well. Back pain unchanged. Pain in low back and across top hips. Occasional radiation into gluteal region and down legs. Pain increased with walking and standing. Neuropathy unchanged. Continued pain and burning in feet. Feet numb and unsteady when up and moving. Using neurontin and helps with symptoms. Edema worse. Increased swelling in feet and lower legs. Taking lasix but not helping. Edema worse after on feet prolonged and end of day. Improved with elevation and in am. SOB unchanged and albuterol helps. PFTs scheduled for next week. Review of Systems Constitutional: Negative for fatigue. [...] guarding or rebound. Musculoskeletal: Left lower leg: Edema present. Neurological: Mental Status: He is alert. 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 Degenerative lumbar spinal stenosis Pain stable and use norco PRN. Use robaxin for spasms. Continue PT exercises. Major depressive disorder, recurrent episode, mild (HCC) (CMS/HCC) Symptoms stable and continue celexa. Bilateral leg edema Edema worse and add aldactone. Stop potassium and continue lasix. Elevate legs PRN. Relevant Medications spironolactone (Aldactone) 25 MG tablet SOB (shortness of breath) on exertion Signs of COPD and check PFTs. Use albuterol PRN. Benign essential hypertension (CMS/HCC) - Primary BP controlled and monitor PRN. documented in this encounter [facility] 01-22-2025 Note [facility] Cardiology Clinic Note Chief Complaint: Patient here for follow up [facility]. Underwent heart cath on 01/11/[address] [...] needed each day., Disp: , Rfl: HYDROcodone-acetaminophen ([place]) 5-325 mg tablet, take 1 tablet by [...] or chew., Disp: 30 tablet, Rfl: 0 dwowvxvxlvee-eout-knaldjei-foli c acid (Multivitamin 50 Plus) tablet, 1 [...] PSYCH: appropriate mood, affect, and judgement. INVESTIGATIONS: Echocardiogram-[facility] Name: NAZARIO CORTES Study Date: 01/11/2025 10:06 AM B/P: 142 mmHg/84 mmHg HR: Date of : 1955 Location: [facility] Height: 74 in. Age: 69 year(s) Patient Room : 3140 Weight: (more content not included)... [facility] 01-21-2025 History of Presen t illness Narrative Associated Problem(s): SOB (shortness of breath) on exertion Signs of COPD and check PFTs. Start albuterol PRN. Associated Problem(s): Coronary artery disease involving [place] coronary artery of [place] heart without angina pectoris (CMS/HCC) Symptoms improved with medication change and follow with cardiology. Images from the original note were not included. Subjective Patient ID: Nathan Cortes is a 69 y.o. male who presents for Follow-up (Hospital f/up ID). Hospital follow up from 01/09-01/13 for unstable angina. Developed chest pain and to ER. CE normal and echo normal. Continued to have pain and seen by cardiology. Concerned of unstable angina and transferred to [facility] 01/10. Heart cath performed and showed 3 [...] Addressed This Visit Coronary artery disease involving [place] coronary artery of [place] heart without angina pectoris (CMS/HCC) - Primary Symptoms improved with medication change and follow with cardiology. SOB (shortness of breath) on exertion Signs of COPD and check PFTs. Start albuterol PRN. Relevant Medications albuterol HFA 90 mcg/act inhaler Other Relevant Orders Pulmonary Function Test documented in this encounter [facility] 01-13-2025 [facility] 01-13-2025 Note Physical Therapy Physical Therapy Evaluation [...] year old male present as transfer from [facility] for chest pain. On 01/11/25, pt underwent [...] Level of Function Prior Function Level of Ritchie: Independent with ADLs and functional transfers, Independent [...] Independent Bed Mobilit (more content not included)... [facility] 01-13-2025 Note [facility] are has accepted. [facility] 01-13-2025 Note Hospital Medicine Discharge Summary Final Discharge Diagnosis: Unstable angina KAROL History of seizures Hyperlipidemia Falls at home Obese class 2 - BMI 40 Admission Diagnosis: Unstable angina (CMS/[facility]) [I20.0] Hospital course: Nazario Cortes is an 69 y.o. male who came from [facility] with Angina pectoris unstable. Patient is a 69-year-old male with the following past medical history CAD, HLD, depression, history of seizures, obstructive sleep apnea, obesity, history of bladder cancer diagnosed 2018 with tumor removal. Patient was transferred from [facility] where he has been admitted on being managed for chest pain. He was seen by cardiology and after consultation patient was transferred to [facility] for cardiac catheterization tomorrow. He states that [...] consulted. WE will arrange home health through [facility]. Surgical, Invasive or Diagnostic Procedures Done During [...] left radial artery was obtained. A 6 Mexican glide sheath was inserted without difficulty. Bilateral [...] Toprol-XL Take 1 (more content not included)... [facility] 01-12-2025 Note Attestation signed by Jony Webber [...] to the follow-up visit Jony Webber MD, [facility] Cardiology Progress Note Subjective Subjective: Patient was [...] Value Ventricular Rate 70 Atrial Rate 70 ID Interval 210 QRS DURATION 78 QT Interval 410 QTC CALCULATION(BAZETT) 442 P [place] 35 R-[place] -9 T Wave [place] 36 Impression Sinus rhythm with 1st degree A-V block Otherwise normal ECG When compared with ECG of 20-NOV-2020 10:48, ID interval has increased Confirmed by Thomas YOUNGER, MILAGROS Garcia ([id number]) on 01/11/2025 1:02:38 PM Lab Results Component Value Date TROPONINI 0.01 01/11/2025 Transthoracic echo (TTE) complete Result Date: 01/11/2025 1 1 [facility] Heart Station [address] [place] [address] [phone] (fax) Echocardiogram-[facility] Name: NAZARIO CORTES Study Date: 01/11/2025 10:06 AM B/P: 142 mmHg/84 mmHg HR: Date of : 1955 Location: [facility] Height: 74 in. Age: 69 year(s) Patient [...] 3 mmHg L (more content not included)... [facility] 01-12-2025 Note Hospital Medicine Daily Progress Note - 01/12/2025 11:29 AM; Room: [address] [place] [address] Admission: 01/11/2025 12:29 AM; Length of stay: 1 days THE HOSPITALIST TEAM PREFERS TO USE [employer] FOR NON-URGENT COMMUNICATION 7AM-7PM. IF I DO NOT RESPOND WITHIN 20 MINUTES OR URGENT MATTERS, PLEASE CALL THROUGH THE TONGUE CARRIER. FROM 7PM-7AM, PLEASE PAGE [phone](COVR). Code Status: Full Code Barriers to Discharge: chest pain Expected Discharge Date: tomorrow? Discharge Destination: home Overview Nazario Cortes is an 69 y.o. male who came from [facility] with Angina pectoris unstable. Patient is a 69-year-old male with the following past medical history CAD, HLD, depression, history of seizures, obstructive sleep apnea, obesity, history of bladder cancer diagnosed 2018 with tumor removal. Patient was transferred from [facility] where he has been admitted on being managed for chest pain. He was seen by cardiology and after consultation patient was transferred to [facility] for cardiac catheterization tomorrow. He states that [...] Active Inpatient Problems Principal Problem: Unstable angina ([facility]) Active Problems: Coronary arteriosclerosis Dyslipidemia Malignant neoplasm of urinary bladder ([facility]) Seizure disorder ([facility]) Lumbar spondylosis Assessment and Plan Unstable angina [...] LDL 97 01/12/2025 No results found for: [id number] , IRON , TIBC , C3 , [...] Fibrosis and sc (more content not included)... [facility] 01-11-2025 Note communication receiv ed that Patient is reporting having multiple falls at home and is reporting spouse has a nurse [facility] from [facility], so would like [facility] if needing [facility] services. Preliminary referral sent to [facility], via sezmi system. [facility] 01-11-2025 Note 01/11/25 1606 Admission Assessment Questions Verify insurance with patient [...] Status Interested Does the patient have a medical case manager assigned to them through their insurance? No Living Arrangement (Current/Prior to Hospitalization) Private residence (lives at home with ) Does the patient have history of HHC or SNF? Yes (hx of HHC not active, when patient use to live in [place], patient stated his kadi has [facility] (nurses [...] you able to send link and activate [employer]? MyChart already active [facility] 01-11-2025 Note -Patient pain contro l. -Patient's hydrocodone 5/325 as needed -Continue other home medications per reconciliation Maintain DVT prophylaxis DVT protocols GI protection Protonix Monitor labs and correct abnormalities Discussed the plan of care with patient's nurse and with the patient himself and he is in agreement. [facility] 01-11-2025 Note -Continue statins. [facility] 01-11-2025 Note -Treat with statins -Manage also with nitrates -Aspirin -Consult cardiology and prep for heart cath later on today. [facility] 01-11-2025 Note -Seizures currently stable resume and reconcile home anticonvulsants [facility] 01-11-2025 Note -Chronic problem we will continue to monitor [facility] 01-11-2025 Note -Use nitroglycerin a nd nitrates -N.p.o. after midnight -Will need to proceed to have cath tomorrow -Consult cardiology. [facility] 01-11-2025 Note Hospital Medicine History and Physical 01/11/2025 1:38 AM THE HOSPITALIST TEAM PREFERS TO USE EPIC CHAT FOR NON-URGENT COMMUNICATION 7AM-7PM. IF I DO NOT RESPOND WITHIN 20 MINUTES OR URGENT MATTERS, PLEASE CALL THROUGH THE TONGUE CARRIER. FROM 7PM-7AM, PLEASE PAGE [phone](COVR). Chief Complaint No chief complaint on file. History of Present Illness Nazario Cortes is an 69 y.o. male who came from [facility] with Angina pectoris unstable. Patient is a 69-year-old male with the following past medical history CAD, HLD, depression, history of seizures, obstructive sleep apnea, obesity, history of bladder cancer diagnosed 2018 with tumor removal. Patient was transferred from [facility] where he has been admitted on being managed for chest pain. He was seen by cardiology and after consultation patient was transferred to [facility] for cardiac catheterization tomorrow. He states that [...] current laboratory findings are available here at [facility]. Review of System and Physical Exam Temp: [...] sleep apnea comes seen on transfer from [facility] with unstable angina. Patient is being prepped for cardiac catheterization tomorrow by cardiology. Assessment & Plan Unstable angina ([facility]) -Use nitroglycerin and nitrates -N.p.o. after midnight -Will need to proceed to have cath tomorrow -Consult cardiology. Coronary arteriosclerosis -Treat with statins -Manage also with nitrates -Aspirin -Consult cardiology and prep for heart cath later on today. Dyslipidemia -Continue statins. Malignant neoplasm of urinary bladder ([facility]) -Chronic problem we will continue to monitor Seizure disorder ([facility]) -Seizures currently stable resume and reconcile home [...] this hospital stay by a member of [facility]. Past Medical History Past Medical History: Diagnosis Date Bladder cancer ([facility]) around 1997 Cholelithiasis Colon polyp Depression Dyslipidemia Hearing loss Left foot drop Peripheral neuropathy Seizure disorder ([facility]) TIA (transient ischemic (more content not included)... [facility] 12-19-2024 History of Presen t illness Narrative [...] Date Noted Neuropathy due to chemotherapeutic drug ([facility]) 08/04/2023 Degenerative lumbar spinal stenosis 08/04/2023 Deviated nasal septum 10/26/2023 Dyslipidemia ([facility]) 10/26/2023 Major depressive disorder, recurrent episode, mild (HCC) ([facility]) 10/26/2023 Malignant neoplasm of urinary bladder ([facility]) 10/26/2023 Seizure disorder ([facility]) 10/26/2023 Coronary arteriosclerosis ([facility]) 07/21/2020 Class 3 severe obesity due to excess calories with serious comorbidity and body mass index (BMI) of 40.0 to 44.9 in adult ([facility]) 01/12/2021 Encounter for long-term current use of medication 11/29/2023 Screening PSA (prostate specific antigen) 11/29/2023 Chest pain due to CAD ([facility]) 01/11/2024 KAROL (obstructive sleep apnea) 02/21/2024 Bilateral [...] History: Diagnosis Date Cataracts, bilateral 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[facility]) Dizziness 1997 DNS (deviated nasal septum) Fracture of nasal bones 2023 History of malignant germ cell neoplasm of mediastinum HL (hearing loss) 1997 Malignant neoplasm of urinary bladder, unspecified site ([facility]) Obesity 1997 Right foot pain Seizures ([facility]) Sleep apnea 1999 Stroke ([facility]) 2009 Syncope, unspecified syncope type Tinnitus [...] Major depressive disorder, recurrent episode, mild (HCC) ([facility]) Symptoms stable and continue celexa. Associated Problem(s): Class 3 severe obesity due to excess calories with serious comorbidity and body mass index (BMI) of 40.0 to 44.9 in adult ([facility]) Weight loss indicated. Associated Problem(s): Medicare [...] Janet that called not Neetu. Neetu from [facility] center called and left vm that she needs a return call. She stated she has called a few times and has not received a call back regarding this patient. I tried to call back and it just kept ringing. Please call her back at [phone]. documented in this encounter [facility] 11-06-2024 Telephone encounter Note Her name is Janet that called not Neetu. [facility] 11-06-2024 Telephone encounter Note Neetu from [facility] called and left vm that she needs a return call. She stated she has called a few times and has not received a call back regarding this patient. I tried to call back and it just kept ringing. Please call her back at [phone]. [facility] 10-30-2024 History [...] spasms. Continue PT exercises. Relevant Medications HYDROcodone-acetaminophen ([place]) 5-325 MG tablet Chronic rhinosinusitis Continued congestion [...] about 6 or 7 years ago, in [facility] and had injections, which he states he has made his symptoms worse. Not interested in pursuing additional injections. Has had daycare worker many years ago for previous symptoms of [...] needed each day., Disp: , Rfl: HYDROcodone-acetaminophen ([place]) 5-325 mg tablet, take 1 tablet by mouth four times a day if needed for severe pain for up to 7 days, Disp: , Rfl: meclizine (Antivert) 25 mg tablet, take 1 tablet by mouth four times a day if needed for dizziness, (more content not included)... [facility] 12-21-2023 Miscellaneous Notes Received faxed referral for patient to be seen for Lumbar. Called and spoke to patient, stated he has an appointment set up already at [facility] office. documented in this encounter [facility] 12-21-2023 Telephone encounter Note Received faxed referral for patient to be seen for Lumbar. Called and spoke to patient, stated he has an appointment set up already at [facility] office. [facility] 07-05-2023 Evaluation note Encounter Date Diagnosis Assessment [...] fusion of cervical spine (ICD-10 - Z98.1) [facility] Other 06-09-2023 Hospital Discharge instructions Follow Up Care 04/29/2023 15:31:28 With:RABIA AGN, Chris Brizuela, URL Address: [facility] [address] [place] [address]- [phone] When: Unknown [facility] 11-10-2022 NotePROCEDURE: XR FOOT RT [...] authenticated by: KELL BLANDON Date: 2022-09-30 08:[address] [place], [place] [address]10-03-2022 NotePROCEDURE: XR KNEE LT 4V or >, [...] Electronically authenticated by: TRINIDAD BEAVER Date: 2022-08-23 14:[facility]10-03-2022 NotePROCEDURE: XR KNEE LT 4V or [...] Electronically authenticated by: TRINIDAD BEAVER Date: 2022-08-23 14:[facility]10-03-2022 NotePROCEDURE: XR KNEE LT 4V or [...] authenticated by: TRINIDAD BEAVER Date: 2022-08-23 14:20[id number] Evaluation note* Encounter Date Diagnosis Assessment Notes Treatment Notes Treatment Clinical Notes March, Bilateral impacted cerumen (ICD-10 - H61.23) Avoid using Q-tips or earplugs. Keep your ears clean and dry. Follow-up with your family physician for any further concerns. [facility] Other 02-07-2022 Evaluation note* Encounter Date Diagnosis [...] contact us for further management as needed. [facility] Other 01-01-2021 NoteMR#: [id number] E [facility] Pt. Name: Nazario Cortes Admitted: 11/20/2020 Discharged: [...] history of coronary artery disease, followed by [facility] Cardiology Clinic that presents to the [facility] Emergency Department with complaints of chest [...] to follow up with his PCP and opinion polls survey worker. Total time of discharge was 45 minutes. Electronically Signed by: Trinidad Hamilton MD 11/21/2020 08:00 A Trinidad Hamilton MD .. Date Dict: 11/20/2020/06:21 P/Loida Ashley CNP Date Trans: 11/21/2020 12:04 A/shabbir [id number] cc: Jose Mccloud M.D. [facility] [address] [place] [address]., [address] [place] [id number] Future Appointments Appointment Date:08/19/2023 10:30:00 AM Scheduled Provider:Chris CAMARILLO MD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
[2025-03-07 20:37] LABS: Basophils Absolute Auto 0.1 10^3/uL (0.0-0.1); Basophils Percent Auto 0.7 % (0.2-2.0); Eosinophils Absolute Auto 0.8 10^3/uL (0.0-0.7); Eosinophils Percent Auto 9.3 % (0.9-7.0); Hematocrit 40.5 % (42.0-54.0); Hemoglobin 13.2 g/dL (14.0-18.0); Immature Granulocytes Abs Auto 0.03 10^3/uL (0.00-0.03); Immature Granulocytes Pct Auto 0.4 % (0.0-0.5); Lymphocytes Absolute Auto 1.9 10^3/uL (1.2-3.8); Lymphocytes Percent Auto 22.7 % (20.5-60.0); Mean Corpuscular HGB Conc 32.6 g/dL (29.9-35.2); Mean Corpuscular Hemoglobin 33.1 pg (25.9-34.0); Mean Corpuscular Volume 101.5 fL (80.0-94.0); Mean Platelet Volume 9.7 fL (9.5-13.5); Monocytes Absolute Auto 0.8 10^3/uL (0.3-0.8); Monocytes Percent Auto 10.3 % (1.7-12.0); Neutrophils Absolute Auto 4.6 10^3/uL (1.4-6.5); Neutrophils Percent Auto 56.6 % (43.0-75.0); Platelet Count 170 10^3/uL (150-450); Red Blood Count 3.99 10^6/uL (4.70-6.10); Red Cell Distribution Width 12.7 % (11.0-15.0); White Blood Count 8.2 10^3/uL (4.0-11.0)
[2025-03-07 20:50] LABS: INR 1.03; Partial Thromboplastin Time 28.2 sec (22.3-36.2); Prothrombin Time 10.9 sec (9.0-11.6)
[2025-03-07 20:56] LABS: Alanine Aminotransferase 22 U/L (16-63); Albumin Globulin Ratio 0.6; Albumin Level 3.1 g/dL (3.4-5.0); Alkaline Phosphatase 155 U/L (46-116); Anion Gap 7.6; Aspartate Amino Transferase 23 U/L (15-37); BUN Creatinine Ratio 13.1; Bilirubin Total 0.3 mg/dL (0.2-1.0); Calcium 8.4 mg/dL (8.5-10.1); Carbon Dioxide 31.2 mmol/L (21.0-32.0); Chloride 103 mmol/L (98-107); Estimated GFR (African America >60 (>=60 mL/min/1.73m^2); Estimated GFR (Non-African Ame 55 (>=60 mL/min/1.73m^2); Glucose 119 mg/dL (74-106); Potassium 3.8 mmol/L (3.5-5.1); Sodium 138 mmol/L (136-145); Total Protein 8.1 g/dL (6.4-8.2); Troponin I High Sensitivity 5.7 pg/mL (4.0-76.1)
[2025-03-07] MEDS: IPRATROPIUM/ALBUTEROL SULFATE 3 ML AMPUL.NEB IH (21:34)
--- NOTE | 2025-03-07 21:45 | ED.GENADUL1 ---
HPI HPI - General Adult General Chief complaint: Shortness of Breath/Dyspnea Stated complaint: SHortness of Breath Time Seen by Provider: 03/07/25 20:09 Source: patient Mode of arrival: ambulance History of Present Illness HPI narrative: 70-year-old male was brought to the emergency room by squad with a chief complaint of shortness of breath. Squad reports patient was hypoxic upon arrival between 87 to 88% on room air they gave him Solu-Medrol and a breathing treatment on the way here placed him on oxygen. Upon arrival to the emergency room his sats were still 90-92% on 2 L. We did attempt to wean him down and his oxygen saturations did drop. Patient does have inspiratory expiratory wheezing despite receiving Solu-Medrol and breathing treatment by squad. He denies any hospitalization for his COPD in the past. He states he had a pulmonary function test approximately 2 weeks ago that his primary care physician Dr. Olguin had ordered. He states since that spirometry study was done he has not felt well and has had difficulty breathing. Patient denies any chest pain. He denies any fevers or chills. Patient denies any recent hospitalizations. He states that he had recently adjusted his Lasix but cannot remember his doses that he is been taking. Bilateral lower extremities do have +1 edema on the right greater than left. Despite Lower extremity swelling, I do not appreciate crackles. Related Data Home Medications ?Medication ?Instructions ?Recorded ?Confirmed atorvastatin 10 mg tablet 10 mg PO .hs 05/12/23 02/21/25 citalopram 40 mg tablet 40 mg PO DAILY 05/12/23 02/21/25 meclizine 25 mg tablet 25 mg PO QID PRN dizziness 05/12/23 02/21/25 phenobarbital 32.4 mg tablet 32.4 mg PO Q12H 05/12/23 02/21/25 phenytoin sodium extended 100 mg 200 mg PO TID 05/12/23 02/21/25 capsule furosemide 40 mg tablet 40 mg PO DAILY edema 05/24/24 02/21/25 nitroglycerin 0.3 mg sublingual 0.3 mg sublingual Q5M PRN chest 05/24/24 02/21/25 tablet pain psyllium husk 0.4 gram capsule 0.4 g PO DAILY 12/04/24 02/21/25 (Daily Fiber) aspirin 81 mg tablet,delayed 81 mg PO DAILY 01/09/25 02/21/25 release (Adult Low Dose Aspirin) albuterol sulfate 90 mcg/actuation 2 inh inhalation Q4H PRN shortness 02/21/25 02/21/25 aerosol inhaler of breath or wheezing fluticasone propionate 50 2 spray intranasal Q12H 02/21/25 02/21/25 mcg/actuation nasal spray,suspension metoprolol succinate 25 mg 25 mg PO DAILY 02/21/25 02/21/25 tablet,extended release 24 hr spironolactone 25 mg tablet 25 mg PO DAILY 02/21/25 02/21/25 Allergies Allergy/AdvReac Type Severity Reaction Status Date / Time oxycodone (From OxyContin) Allergy Severe Anaphylaxis Verified 03/07/25 20:04 gabapentin Allergy Unknown Unknown Verified 03/07/25 20:04 Opioid HPI Opioid Management Most Recent Opioid Data: Last Pain Scale 6 02/21/25 12:03 02/21/25 Last ORT Total Score 1 01/09/25 23:46 01/09/25 Last ORT Risk Category Low Risk 01/09/25 23:46 01/09/25 Review of Systems ROS Narrative All Systems are negative except as noted/marked.All systems reviewed and otherwise negative [facility] Medical History (Updated 03/07/25 @ 21:46 by ) Seizure disorder ?G40.909 - Epilepsy, unspecified, not intractable, without status epilepticus (ICD-10) CAD (coronary artery disease) ?I25.10 - Atherosclerotic heart disease of [place] coronary artery without angina pectoris (ICD-10) Cervical vertebral fusion ?M43.22 - Fusion of spine, cervical region (ICD-10) Lipoma of axilla ?D17.20 - Benign lipomatous neoplasm of skin and subcutaneous tissue of unspecified limb (ICD-10) Rupture, tendon, Achilles ?S86.019A - Strain of unspecified Achilles tendon, initial encounter (ICD-10) Syncope ?R55 - Syncope and collapse (ICD-10) Seizure ?R56.9 - Unspecified convulsions (ICD-10) Malignant neoplasm of mediastinum ?C38.3 - Malignant neoplasm of mediastinum, part unspecified (ICD-10) Depression ?F32.A - Depression, unspecified (ICD-10) Dyslipidemia ?E78.5 - Hyperlipidemia, unspecified (ICD-10) Deviated nasal septum ?J34.2 - Deviated nasal septum (ICD-10) Degenerative lumbar spinal stenosis ?M48.061 - Spinal stenosis, lumbar region without neurogenic claudication (ICD-10) 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 - Drug-induced polyneuropathy (ICD-10) ?T45.1X5A - Adverse effect of antineoplastic and immunosuppressive drugs, initial encounter (ICD-10) CAD, multiple vessel ?I25.10 - Atherosclerotic heart disease of [place] coronary artery without angina pectoris (ICD-10) 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 - Malignant neoplasm of mediastinum, part unspecified (ICD-10) Bladder cancer ?C67.9 - Malignant neoplasm of bladder, unspecified (ICD-10) HLD (hyperlipidemia) ?E78.5 - Hyperlipidemia, unspecified (ICD-10) Chest pain ?R07.9 - Chest pain, unspecified (ICD-10) Surgical History History of cataract surgery ?Z98.49 - Cataract extraction status, unspecified eye (ICD-10) History of foot surgery ?Z98.890 - Other specified postprocedural states (ICD-10) History of esophagogastroduodenoscopy (EGD) ?Z98.890 - Other specified postprocedural states (ICD-10) History of colonoscopy ?Z98.890 - Other specified postprocedural states (ICD-10) History of neck surgery ?Z98.890 - Other specified postprocedural states (ICD-10) H/O shoulder surgery ?Z98.890 - Other specified postprocedural states (ICD-10) History of cholecystectomy ?Z90.49 - Acquired absence of other specified parts of digestive tract (ICD-10) Family History Father Family history of myocardial infarction Sister Family history of cancer Other Family history of coronary artery disease Family history of diabetes mellitus Family history of gastric cancer Family history of heart disease Family history of hypertension Family history of kidney cancer Family history of stroke Social History Within the past year, how often did you have a drink containing alcohol: never Score interpretation: A score less than 4 is consistent with normal alcohol consumption. Smoking status: Former smoker Non-prescribed substance use: denies use Previous occupational history: retired Highest level of school completed/degree received: Associate degree: academic program Are you now , , , , never or living with a partner: In a typical week, how many times do you talk on the telephone with family, friends, or neighbors: 3 or more times per week How often do you get together with friends or relatives: 3 or more times per week Little interest or pleasure in doing things: not at all Feeling down, depressed, or hopeless: not at all Feel stressed/tense/nervous/anxious/difficulty sleeping: to some extent Life stressors: other Life stressor details: health Gender Identity: male Exam Narrative Exam Narrative: Nurses note and vital signs reviewed and patient is not hypoxic. General: The patient appears well and in no apparent distress. Patient is resting comfortably on cart. Skin: Warm, dry, no pallor noted. There is no rash noted. Head: Normocephalic, atraumatic Eye: Normal conjunctiva, no drainage, EOMI. PERRL Ears, Nose, Mouth, and Throat: oral mucosa is moist. Nares patent. Mouth without vesicles. Ear canals patent. Tm's without Erythema Cardiovascular: Regular Rate and Rhythm Respiratory: Audible inspiratory, expiratory wheezing with mild accessory muscle usage upon arrival wearing O2 Back: non-tender, no CVA tenderness bilaterally to percussion. GI: Normal bowel sounds, no tenderness to palpation, no masses appreciated. No rebound, guarding, or rigidity noted. Musculoskeletal: Extremity edema right ankle foot greater than left ,the patient has no evidence of calf tenderness, no pitting edema, symmetrical pulses noted bilaterally Neurological: A&O x4, normal speech Psychiatric: Cooperative Constitutional Vital Signs, click to edit/add: Last Vital Signs Temp 97.8 F 03/07/25 20:05 Pulse 81 03/07/25 21:37 Resp 20 03/07/25 21:37 BP 146/81 H 03/07/25 21:00 Pulse Ox 95 03/07/25 21:37 O2 Del Method Nasal Cannula 03/07/25 21:37 O2 Flow Rate 3 03/07/25 21:37 Course Vital Signs Vital signs: Vital Signs Temperature 97.8 F 03/07/25 20:05 Pulse Rate 86 04/17/25 20:05 Respiratory Rate 20 03/07/25 20:05 Blood Pressure 144/83 H 03/07/25 20:05 Pulse Oximetry 92 L 03/07/25 20:05 Oxygen Delivery Method Room Air 03/07/25 20:05 Temperature 97.8 F 03/07/25 20:05 Pulse Rate 81 03/07/25 21:37 Respiratory Rate 20 03/07/25 21:37 Blood Pressure 146/81 H 03/07/25 21:00 Pulse Oximetry 95 03/07/25 21:37 Oxygen Delivery Method Nasal Cannula 03/07/25 21:37 Oxygen Delivery Flow Rate 3 03/07/25 21:37 Medical Decision Making MDM Narrative Medical decision making narrative: 70-year-old male was brought to the emergency room by cassie with a chief complaint of shortness of breath. Squad reports patient was hypoxic upon arrival between 87 to 88% on room air they gave him Solu-Medrol and a breathing treatment on the way here placed him on oxygen. Upon arrival to the emergency room his sats were still 90-92% on 2 L. We did attempt to wean him down and his oxygen saturations did drop. Patient does have inspiratory expiratory wheezing despite receiving Solu-Medrol and breathing treatment by cassie. He denies any hospitalization for his COPD in the past. He states he had a pulmonary function test approximately 2 weeks ago that his primary care physician Dr. Olguin had ordered. He states since that spirometry study was done he has not felt well and has had difficulty breathing. Patient denies any chest pain. He denies any fevers or chills. Patient denies any recent hospitalizations. He states that he had recently adjusted his Lasix but cannot remember his doses that he is been taking. Bilateral lower extremities do have +1 edema on the right greater than left. Despite Lower extremity swelling, I do not appreciate crackles. Upon arrival to the emergency room, patient had IV already established and was wearing a nonrebreather. Patient was weaned down to 3 L and remains at 90 to 93%. Patient was given a DuoNeb breathing treatment here. Complete cardiac CHF workup was performed. Lab work shows a normal white blood cell count mildly low hemoglobin and hematocrit at 13.2 and 40.5. And BNP are within normal limits. X-ray was read by radiology as right basilar opacity, no pleural effusion or pneumothorax normal heart size and no fractures. Patient has had no fevers and white blood cell counts within normal limits. Patient will be admitted for COPD exacerbation and hypoxia. Patient is stable at this time and agrees with plan of care. Differential Diagnosis Differential Diagnosis: hypoxia, copd, pneumonia Medical Records Medical records reviewed: Yes I reviewed the patient's medical records Lab Data Lab results reviewed: Yes I reviewed the patient's lab results Labs: Lab Results 03/07/25 Range/Units 20:28 WBC 8.2 (4.0-11.0) 10^3/uL RBC 3.99 L (4.70-6.10) 10^6/uL Hgb 13.2 L (14.0-18.0) g/dL Hct 40.5 L (42.0-54.0) % MCV 101.5 H (80.0-94.0) fL MCH 33.1 (25.9-34.0) pg MCHC 32.6 (29.9-35.2) g/dL RDW 12.7 (11.0-15.0) % Plt Count 170 (150-450) 10^3/uL MPV 9.7 (9.5-13.5) fL Neut % (Auto) 56.6 (43.0-75.0) % Lymph % (Auto) 22.7 (20.5-60.0) % [place] % (Auto) 10.3 (1.7-12.0) % Eos % (Auto) 9.3 H (0.9-7.0) % Baso % (Auto) 0.7 (0.2-2.0) % Neut # (Auto) 4.6 (1.4-6.5) 10^3/uL Lymph # (Auto) 1.9 (1.2-3.8) 10^3/uL [place] # (Auto) 0.8 (0.3-0.8) 10^3/uL Eos # (Auto) 0.8 H (0.0-0.7) 10^3/uL Baso # (Auto) 0.1 (0.0-0.1) 10^3/uL Abs Immat Gran (auto) 0.03 (0.00-0.03) 10^3/uL Imm/Tot Granulo (auto) 0.4 (0.0-0.5) % PT 10.9 (9.0-11.6) sec INR 1.03 APTT 28.2 (22.3-36.2) sec Sodium 138 (136-145) mmol/L Potassium 3.8 (3.5-5.1) mmol/L Chloride 103 (98-107) mmol/L Carbon Dioxide 31.2 (21.0-32.0) mmol/L Anion Gap 7.6 BUN 17.0 (7.0-18.0) mg/dL Creatinine 1.30 (0.70-1.30) mg/dL Est GFR ( Amer) >60 (>=60 mL/min/1.73m^2) Est GFR (Non-Af Amer) 55 L (>=60 mL/min/1.73m^2) BUN/Creatinine Ratio 13.1 Glucose 119 H (74-106) mg/dL Calcium 8.4 L (8.5-10.1) mg/dL Total Bilirubin 0.3 (0.2-1.0) mg/dL AST 23 (15-37) U/L ALT 22 (16-63) U/L Alkaline Phosphatase 155 H (46-116) U/L Troponin I High Sens 5.7 (4.0-76.1) pg/mL NT-Pro-B Natriuret Pep 63.0 (<=900.0) pg/mL Total Protein 8.1 (6.4-8.2) g/dL Albumin 3.1 L (3.4-5.0) g/dL Globulin 5.0 g/dL Albumin/Globulin Ratio 0.6 Imaging Data Chest x-ray: Radiologist's impression: Right basilar opacity, no pleural effusion or pneumothorax normal heart Discharge Plan Discharge Chief Complaint: Shortness of Breath/Dyspnea Clinical Impression: COPD exacerbation, Hypoxia Patient Disposition: Admitted As Inpatient Time of Disposition Decision: 21:44 Condition: Fair Prescriptions / Home Meds: No Action hydrocodone-acetaminophen 5-325 mg tablet 1 tab PO Q6H PRN (Reason: pain) 3 Days Qty: 12 0RF Rx Instructions: M54.5 furosemide 40 mg tablet 40 mg PO DAILY nitroglycerin 0.3 mg tablet, sublingual 0.3 mg sublingual Q5M PRN (Reason: chest pain) psyllium husk [Daily Fiber] 0.4 gram capsule 0.4 g PO DAILY methocarbamol 750 mg tablet 750 mg PO Q8H PRN (Reason: muscle spasm) aspirin [Adult Low Dose Aspirin] 81 mg tablet,delayed release (DR/EC) 81 mg PO DAILY atorvastatin 10 mg tablet 10 mg PO .hs citalopram 40 mg tablet 40 mg PO DAILY meclizine 25 mg tablet 25 mg PO QID PRN (Reason: dizziness) phenobarbital 32.4 mg tablet 32.4 mg PO Q12H phenytoin sodium extended 100 mg capsule 200 mg PO TID spironolactone 25 mg tablet 25 mg PO DAILY bisacodyl 5 mg tablet,delayed release (DR/EC) 5 mg PO DAILY PRN (Reason: constipation) metoprolol succinate 25 mg tablet extended release 24 hr 25 mg PO DAILY albuterol sulfate 90 mcg/actuation HFA aerosol inhaler 2 inh INHALATION Q4H PRN (Reason: shortness of breath or wheezing) fluticasone propionate 50 mcg/actuation spray,suspension 2 spray INTRANASAL Q12H Print Language: Citizen Of [place] Referrals: Jignesh Manjarrez MD [Primary Care Provider] - 1 week
--- OUTSIDE RECORDS SUMMARY | 2025-03-07 23:21 | XMS_ITS | CCD ---
Author Organization [facility] Team Providers Care Component Design Engineer Name Role Phone KARINA JAY Attending Unavailable [...] Provider MD Jignesh Gonsalez Primary Care Provider [phone] JIGNESH GONSALEZ Primary Care Physician [phone] Chris CAMARILLO Attending Unavailable JIGNESH GONSALEZ Referring Unavailable Chris CAMARILLO Attending Unavailable MD Jignesh Gonsalez Primary Care Provider [phone] RIDGE Garcia Attending Provider MD Jignesh Gonsalez Primary Care Provider RIDGE Garcia Attending Provider [phone] Jignesh Gonsalez MD Primary Care Provider Jignesh Gonsalez Primary Care Unavailable Joslyn Garcia Attending Unavailable Joslyn Garcia Admitting Unavailable Jignesh Gonsalez Primary Care Unavailable Joslyn Garcia Attending Unavailable Joslyn Garcia Admitting Unavailable Yancy Lawson Admitting Unavailable Jignesh Gonsalez Primary Care Unavailable Yancy Lawson M Attending Unavailable Jose Mccloud DO Primary Care Provider [phone] DARRELL THOMAS Referring Unavailable DARRELL THOMAS Referring Unavailable ELTAARNAUD DE DIOS Attending Unavailable CORNELIO HODGES Attending Unavailable MOUKARBCOLE OROZCO Referring Unavailable SAPPHIRE, BONANANO Admitting Unavailable ROZINA JOSHI Attending Unavailable CORNELIO HODGES Referring Unavailable JONY WEBBER Referring Unavailable AMRIK [...] Allergy 4 stomach upset, IV ONLY-Dizzy [facility] Opioid Agonists (1 source) oxyCODONE Drug Allergy 4 Unknown Reaction [facility] (11 sources) gabapentin; Translations: [GABAPENTIN] Drug Allergy 0 stomach upset [facility] Repository (2 sources) oxyCODONE Drug Allergy 0 [facility] Repository (3 sources) Phenytoin; Translations: [Dilantin] Drug Allergy 0 [facility] Repository (20 sources) gabapentin; Translations: [gabapentin] Drug Allergy 0 Unknown (qualifier value), Unknown [facility] (20 sources) oxyCODONE; Translations: [oxycodone] Drug Allergy 0 Difficulty breathing (finding), Angioedema, Unknown [facility] (20 sources) Phenytoin; Translations: [phenytoin] Drug Allergy 6 Dizziness (finding), Unknown, Dizziness [facility] (1 source) Phenytoin; Translations: [PHENYTOIN SODIUM EXTENDED] Drug Allergy 6 [facility] Repository (1 source) gabapentin Drug Allergy 4 [facility] Repository (1 source) oxyCODONE Drug Allergy 4 [facility] Repository (1 source) Phenytoin Drug Allergy 4 [facility] Repository Medications Current Medications Medication Drug Class(es) Dates Sig (Normalized) Sig (Original) acetaminophen 325 mg / HYDROcodone bitartrate 5 mg oral tablet (20 sources) Opioid Agonist Start: 01-28-2025 End: 02-04-2025 take 1 tablet by mouth four times daily as needed for pain HYDROcodone-acetami nophen ([place]) 5-325 MG tablet Indications: Degenerative lumbar spinal stenosis Take 1 tablet by mouth 4 (four) times a day as needed for severe pain for up to 7 days 28 tablet 01/28/2025 02/04/2025 Active Start: 11-15-2024 End: 11-22-2024 take 1 tablet by mouth four times daily as needed for pain HYDROcodone-acetaminophen ([place]) 5-325 MG tablet Indications: Degenerative lumbar spinal stenosis Take 1 tablet by mouth 4 (four) times a day as needed for severe pain for up to 7 days 28 tablet 11/15/2024 11/22/2024 Active Start: 10-11-2024 End: 11-01-2024 take 1 tablet by mouth four times daily as needed for pain HYDROcodone-acetaminophen ([place]) 5-325 MG tablet Indications: Degenerative lumbar spinal stenosis Take 1 tablet by mouth 4 (four) times a day as needed for severe pain for up to 7 days 28 tablet 10/25/2024 11/01/2024 Active Start: 04-23-2024 take 1 tablet by ambika th four times daily Hydrocodone-Acetaminophen Active 1 TAB P O Four times daily April 23, 2024 12:00am [place] Active take 1 tablet by ambika th every six hours HYDROcodone-Acetaminophen 7.5-325 MG 1 tablet as needed Orally every 6 hrs Active [id number] actuat albuterol 0.09 mg/actuat metered dose [...] 2 mg/ml injectable solution (1 source) vit R0-T1-Q4-B5- B6 (B-COMPLEX INJECTION) 855-1-030-2-2 mg/mL solution B-Complex 1 QD 0 Active [...] mg tablet,disintegrating 1 tablet 0 Active Meloxicam [facility] Meloxicam Active methocarbamol 750 mg oral tablet [...] TAB PO Daily April 23, 2024 12:00am zozrxrmsaygq-qnvvntnc-fj tein (MULTIVITAMIN 50 PLUS) tablet (1 source) [...] disease (20 sources) Atherosclerotic heart disease of [place] coronary artery without angina pectoris; Translations: [Coronary [...] 04-23-2024 Chronic Other aftercare (1 source) 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; Translations: [INTERMEDIATE CURRENT USE OF ASPIRIN] Onset: 12-27-2022 Episodic Other aftercare (1 source) Other longterm (current) drug therapy; Translations: [OT INTERMEDIATE CURRENT DRUG THERAPY] Onset: 12-27-2022 Episodic Other [...] (BMI) of 40.0 to 44.9 in adult ([facility])] Onset: 01-12-2021 11-22-2024 Chronic Other upper respiratory [...] current use of drug therapy; Translations: [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 MR#: [id number] : 1955 Acct:[id number] Age/Sex: 70 / M ADM Date: 02/22/25 Loc: CARD Attending Dr: Jignesh Gonsalez M.D. Ordering Physician: Jignesh Gonsalez M.D. 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 MR#: [id number] : 1955 Acct:[id number] Age/Sex: 70 / M ADM Date: 02/22/25 Loc: CARD Attending Dr: Jignesh Gonsalez M.D. Ordering Physician: Jignesh Gonsalez M.D. 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 1955 M Date Provider Department Center 01/22/2025 [address] [facility] CARD [facility] Family History Problem Relation Age of Onset Supraventricular tachycardia Mother Stroke Father Kidney cancer Sister Diabetes Sister COPD Brother Family Status - Relation Status Age at Mother Father Sister Brother Level of Service:94012 NC OFFICE/OUTPATIENT ESTABLISHED LOW MDM 20 MIN Normal [facility] BASIC METABOLIC PANELon 12-23 Anion gap [Moles/Vol] 11 mmol/L Normal 7-20 [facility] Comment on above: Performed By: #### L [id number] #### [facility] (AKER) [address] [place] [address] Calcium [Mass/Vol] 8.8 mg/dL Normal 8.6-10.3 [facility] Comment on above: Performed By: #### L [id number] #### [facility] (AKER) [address] [place] [address] Chloride [Moles/Vol] 104 mmol/L Normal 98-107 [facility] Comment on above: Performed By: #### L [id number] #### [facility] (BEAKER) [address] [place] [address] CO2 [Moles/Vol] 24 mmol/L Normal 21-31 [facility] Comment on above: Performed By: #### L [id number] #### [facility] (AKER) [address] [place] [address] Creatinine [Mass/Vol] 0.81 mg/dL Normal 0.70-1.30 [facility] Comment on above: Performed By: #### L [id number] #### [facility] ([facility]) [address] [place] [address] GLOMERULAR FILTRATION RATE ML/MIN/1.73 SQ M.PREDICTED 95.4 mL/min/1.73m*2 Normal >60.0 [facility] Comment on above: Result Comment: [facility]???s estimated glomerular filtration rate (eGFR) will no [...] individuals. Performed By: #### L [id number] #### [facility] ([facility]) [address] [place] [address] Glucose [Mass/Vol] 114 mg/dL High 70-100 [facility] Comment on above: Performed By: #### L [id number] #### [facility] ([facility]) [address] [place] [address] Potassium [Moles/Vol] 4.2 mmol/L Normal 3.5-5.1 [facility] Comment on above: Performed By: #### L [id number] #### [facility] ([facility]) [address] [place] [address] Sodium [Moles/Vol] 135 mmol/L Low 136-145 [facility] Comment on above: Performed By: #### L [id number] #### [facility] ([facility]) [address] [place] [address] Urea nitrogen [Mass/Vol] 23 mg/dL Normal 7-25 [facility] Comment on above: Performed By: #### L [id number] #### [facility] ([facility]) [address] [place] [address] UREA NITROGEN/CREATININE (MASS RATIO) IN SER/PLAS 28.4 Normal [facility] Comment on above: Performed By: #### L [id number] #### [facility] ([facility]) [address] [place] [address] FOLATEon 01-13-2025 FOLATE (NG/ML) IN SER/PLAS 20.54 ng/mL Normal 6.6-1000 [facility] Comment on above: Performed By: #### L [id number] #### [facility] ([facility]) [address] [place] [address] NURSNOTEon 01-13-2025 NURSNOTE Pt discharged with a ll belongings, discharge paperwork, and questions answered to pt's satisfaction. Normal [facility] VITAMIN B12on 01-13-2025 Cobalamin (Vitamin B12) [Mass/Vol] 353 pg/mL Normal 180-914 [facility] Comment on above: Result Comment: REFE RENCE RANGES: 180-914 pg/mL Normal 145-179 pg/mL Indeterminate <145 pg/mL Deficient Performed By: #### L [id number] #### [facility] [address] [place] [address] 30on 01-12-2025 30 The patient is Moderately [...] and behaviors that affect risk of falls Minerva fall precautions as indicated by assessment Educate [...] and prevent overall improvement and discharge Normal [facility] 30 The patient is Moderately Stable - Low risk of patient condition declining or worsening The patient's goals for the shift include comfort, rest The clinical goals for the shift include vss, safety Normal [facility] B-TYPE NATRIURETIC PEPTIDEon 01-12-2025 Natriuretic peptide B (Bld) [Mass/Vol] 34 pg/mL Normal 0-100 [facility] Comment on above: Performed By: #### L [id number] #### [facility] (BEAKER) [address] [place] [address] BASIC METABOLIC PANELon 12-23 Anion gap [Moles/Vol] 10 mmol/L Normal 7-20 [facility] Comment on above: Performed By: #### L [id number] #### [facility] (BEAKER) [address] [place] [address] Calcium [Mass/Vol] 8.4 mg/dL Low 8.6-10.3 [facility] Comment on above: Performed By: #### L [id number] #### [facility] [address] [place] [address] Chloride [Moles/Vol] 101 mmol/L Normal 98-107 [facility] Comment on above: Performed By: #### L [id number] #### [facility] ([facility]) [address] [place] [address] CO2 [Moles/Vol] 26 mmol/L Normal 21-31 [facility] Comment on above: Performed By: #### L [id number] #### [facility] ([facility]) [address] [place] [address] Creatinine [Mass/Vol] 0.79 mg/dL Normal 0.70-1.30 [facility] Comment on above: Performed By: #### L [id number] #### [facility] ([facility]) [address] [place] [address] GLOMERULAR FILTRATION RATE ML/MIN/1.73 SQ M.PREDICTED 96.2 mL/min/1.73m*2 Normal >60.0 [facility] Comment on above: Result Comment: [facility]???s estimated glomerular filtration rate (eGFR) will no [...] individuals. Performed By: #### L [id number] #### [facility] [address] [place] [address] Glucose [Mass/Vol] 114 mg/dL High 70-100 [facility] Comment on above: Performed By: #### L [id number] #### [facility] ([facility]) [address] [place] [address] Potassium [Moles/Vol] 4.2 mmol/L Normal 3.5-5.1 [facility] Comment on above: Performed By: #### L [id number] #### [facility] (BEAKER) [address] [place] [address] Sodium [Moles/Vol] 133 mmol/L Low 136-145 [facility] Comment on above: Performed By: #### L [id number] #### [facility] [address] [place] [address] Urea nitrogen [Mass/Vol] 20 mg/dL Normal 7-25 [facility] Comment on above: Performed By: #### L [id number] #### [facility] [address] [place] [address] UREA NITROGEN/CREATININE (MASS RATIO) IN SER/PLAS 25.3 Normal [facility] Comment on above: Performed By: #### L [id number] #### [facility] [address] [place] [address] CBCon 01-12-2025 Erythrocyte distribution width (RBC) [Ratio] 13.3 % Normal 11.5-15.0 [facility] Comment on above: Performed By: #### L [id number] #### [facility] (BEAKER) [address] [place] [address] ERYTHROCYTE MEAN CORPUSCULAR HEMOGLOBIN CONCENTRATION (G/DL) BY AUTOMATED 32.7 g/dL Normal 32.0-35.0 [facility] Comment on above: Performed By: #### L [id number] #### [facility] (BEAKER) [address] [place] [address] Hematocrit (Bld) [Volume fraction] 41.0 % Normal 39.0-55.0 [facility] Comment on above: Performed By: #### L [id number] #### [facility] (BEAKER) [address] [place] [address] Hemoglobin (Bld) [Mass/Vol] 13.4 g/dL Normal 13.0-17.0 [facility] Comment on above: Performed By: #### L [id number] #### [facility] ([facility]) [address] [place] [address] MCH (RBC) [Entitic mass] 32.8 pg Normal 27.0-33.0 [facility] Comment on above: Performed By: #### L [id number] #### [facility] ([facility]) [address] [place] [address] MCV (RBC) [Entitic vol] 100.2 fL High 82.0-98.0 [facility] Comment on above: Performed By: #### L [id number] #### [facility] ([facility]) [address] [place] [address] PLATELETS (10*3/UL) IN BLOOD AUTOMATED COUNT 197 10*3/uL Normal 150-400 [facility] Comment on above: Performed By: #### L [id number] #### [facility] ([facility]) [address] [place] [address] RBC (Bld) [#/Vol] 4.09 10*6/uL Low 4.20-5.70 [facility] Comment on above: Performed By: #### L [id number] #### [facility] ([facility]) [address] [place] [address] WBC (Bld) [#/Vol] 8.31 10*3/uL Normal 4.00-10.60 [facility] Comment on above: Performed By: #### L [id number] #### [facility] ([facility]) [address] [place] [address] HEMOGLOBIN A1Con 01-12-2025 Glucose [Mass/Vol] 108 mg/dL Normal [facility] Comment on above: Performed By: #### L [id number] #### [facility] [address] [place] [address] HbA1c (Bld) [Mass fraction] 5.4 % Normal 4.0-6.0 [facility] Comment on above: Performed By: #### L [id number] #### [facility] ([facility]) [address] [place] [address] HEPATIC FUNCTION PANELon Albumin [Mass/Vol] 3.7 g/dL Normal 3.5-5.7 [facility] Comment on above: Performed By: #### L [id number] ####[facility] ([facility])[address] [place] [address] ALP [Catalytic activity/Vol] 152 U/L High 34-104 [facility] Comment on above: Performed By: #### L [id number] ####[facility] ([facility])[address] [place] [address] ALT [Catalytic activity/Vol] 20 U/L Normal 7-52 [facility] Comment on above: Performed By: #### L [id number] ####[facility] ([facility])[address] [place] [address] AST [Catalytic activity/Vol] 25 U/L Normal 13-39 [facility] Comment on above: Performed By: #### L [id number] ####[facility] ([facility])[address] [place] [address] Bilirubin [Mass/Vol] 0.5 mg/dL Normal 0.3-1.0 [facility] Comment on above: Performed By: #### L [id number] ####[facility] ([facility])[address] [place] [address] Magnesium [Mass/Vol] 0.1 mg/dL Normal 0-0.2 [facility] Comment on above: Performed By: #### L [id number] ####[facility] ([facility])[address] [place] [address] Protein [Mass/Vol] 8.1 g/dL Normal 6.0-8.3 [facility] Comment on above: Performed By: #### L [id number] ####[facility] ([facility])[address] [place] [address] LIPID PANELon 01-12-2025 CHOL/HDL 3.3 mg/dL Normal [facility] Comment on above: Performed By: #### L [id number] ####[facility] (BEAKER)[address] [place] [address] Cholesterol [Mass/Vol] 140 mg/dL Normal 120-200 [facility] Comment on above: Performed By: #### L [id number] ####[facility] (BEAKER)[address] [place] [address] Magnesium [Mass/Vol] 230 mg/dL High 40-149 [facility] Comment on above: Result Comment: TRIG LYCERIDE REFERENCE RANGE: 20 YEARS AND OLDER CARDIOVASCULAR RISK LESS THAN 150 mg/dL LOW RISK 150 TO 199 mg/dL BORDERLINE RISK 200 mg/dL AND GREATER HIGH RISK Performed By: #### L [id number] ####[facility] [facility] [place] [address] Magnesium [Mass/Vol] 51 mg/dL Normal 0-160 [facility] Comment on above: Performed By: #### L [id number] ####[facility] (BEAKER)[address] [facility] [facility] [place] [address] Magnesium [Mass/Vol] 43 mg/dL Normal 23-92 [facility] Comment on above: Performed By: #### L [id number] ####[facility] (BEAKER)[address] [place] [address] NON HDL CHOL. (LDL+VLDL) 97 Normal [facility] Comment on above: Performed By: #### L [id number] ####[facility] (BEAKER)[address] [facility] [place] [address] TOTAL VLDL-C 46 mg/dL High 0-40 [facility] Comment on above: Performed By: #### L [id number] ####[facility] (BEAKER)[address] [place] [address] MAGNESIUMon 01-12-2025 Magnesium [Mass/Vol] 1.9 mg/dL Normal 1.9-2.7 [facility] Comment on above: Performed By: #### L [id number] #### [facility] (BEBRIGITTE) [address] [place] [address] 30on 01-11-2025 30 The patient is Moderately [...] and maintained or improved Outcome: Progressing Normal [facility] 30 Daily Case Managemen t Update Multidisciplinary rounds have been completed. Barriers to Discharge: Patient presented to [facility] with chest pain, and was transferred to [facility] for heart cath. Patient to go [...] of Consultation Consultation and Management 01/11/25136 Normal [facility] 30 The patient is Moderately Stable - [...] and prevent overall improvement and discharge Normal [facility] 30 The patient is Moderately Stable - Low risk of patient condition declining or worsening The patient's goals for the shift include Comfort The clinical goals for the shift include VSS Normal [facility] ANEPrateek 01-11-2025 ANES -- Attestation signed by Arnaud Lyons MD at 01/11/2025 1:02 PM Arnaud Lyons MD, MPH, [facility], [facility], [facility], [facility] Interventional Cardiology Pager Email: [email or web address] Patient: Nazario Cortes Procedure Information Date/Time: 01/11/25 2236 Procedure: Coronary angiography Location: [facility] / [facility] (Cath) Providers: Arnaud Lyons [...] fellow and attending. Additional Equipment Requests Normal [facility] APTTon 01-11-2025 ACTIVATED PARTIAL THROMBOPLASTIN TIME IN PPP BY COAGULATION ASSAY 26.3 Seconds Normal 25.0-35.0 [facility] Comment on above: Order Comment: Basel ine aPTT before initiating heparin infusion. Result Comment: Clin ical significance of the APTT is questionable in the presence of heparin. Performed By: #### L [id number] #### [facility] ([facility]) [address] [place] [address] BASIC METABOLIC PANELon 12-23 Anion gap [Moles/Vol] 9 mmol/L Normal 7-20 [facility] Comment on above: Performed By: #### L [id number] #### [facility] ([facility]) [address] [place] [address] Calcium [Mass/Vol] 8.3 mg/dL Low 8.6-10.3 [facility] Comment on above: Performed By: #### L [id number] #### [facility] [address] [place] [address] Chloride [Moles/Vol] 103 mmol/L Normal 98-107 [facility] Comment on above: Performed By: #### L [id number] #### [facility] [address] [place] [address] CO2 [Moles/Vol] 26 mmol/L Normal 21-31 [facility] Comment on above: Performed By: #### L [id number] #### [facility] [address] [place] [address] Creatinine [Mass/Vol] 0.81 mg/dL Normal 0.70-1.30 [facility] Comment on above: Performed By: #### L [id number] #### [facility] ([facility]) [address] [place] [address] GLOMERULAR FILTRATION RATE ML/MIN/1.73 SQ M.PREDICTED 95.4 mL/min/1.73m*2 Normal >60.0 [facility] Comment on above: Result Comment: [facility]???s estimated glomerular filtration rate (eGFR) will no [...] group of individuals. Performed By: #### L [id number] #### [facility] ([facility]) [address] [place] [address] Glucose [Mass/Vol] 105 mg/dL High 70-100 [facility] Comment on above: Performed By: #### L [id number] #### [facility] ([facility]) [address] [place] [address] Potassium [Moles/Vol] 4.1 mmol/L Normal 3.5-5.1 [facility] Comment on above: Performed By: #### L [id number] #### [facility] ([facility]) [address] [place] [address] Sodium [Moles/Vol] 134 mmol/L Low 136-145 [facility] Comment on above: Performed By: #### L [id number] #### [facility] ([facility]) [address] [place] [address] Urea nitrogen [Mass/Vol] 18 mg/dL Normal 7-25 [facility] Comment on above: Performed By: #### L [id number] #### [facility] ([facility]) [address] [place] [address] UREA NITROGEN/CREATININE (MASS RATIO) IN SER/PLAS 22.2 Normal [facility] Comment on above: Performed By: #### L [id number] #### [facility] ([facility]) [address] [facility] [address] CBC WITH AUTO DIFFERENTIALon 01-11-2025 Basophils (Bld) [#/Vol] 0.08 10*3/uL Normal 0.00-0.20 [facility] Comment on above: Performed By: #### L [id number] #### [facility] ([facility]) [address] [facility] [place] [address] Basophils/100 WBC (Bld) 0.9 % Normal 0.0-1.0 [facility] Comment on above: Performed By: #### L [id number] #### [facility] ([facility]) [address] [place] [address] Eosinophils (Bld) [#/Vol] 0.56 10*3/uL High 0.00-0.50 [facility] Comment on above: Performed By: #### L [id number] #### [facility] ([facility]) [address] [place] [address] Eosinophils/100 WBC (Bld) 6.5 % High 0.0-6.0 [facility] Comment on above: Performed By: #### L [id number] #### [facility] ([facility]) [address] [place] [address] Erythrocyte distribution width (RBC) [Ratio] 13.5 % Normal 11.5-15.0 [facility] Comment on above: Performed By: #### L [id number] #### [facility] ([facility]) [address] [place] [address] ERYTHROCYTE MEAN CORPUSCULAR HEMOGLOBIN CONCENTRATION (G/DL) BY AUTOMATED 32.7 g/dL Normal 32.0-35.0 [facility] Comment on above: Performed By: #### L [id number] #### [facility] ([facility]) [address] [facility] [place] [address] Hematocrit (Bld) [Volume fraction] 39.8 % Normal 39.0-55.0 [facility] Comment on above: Performed By: #### L [id number] #### [facility] ([facility]) [address] [place] [address] Hemoglobin (Bld) [Mass/Vol] 13.0 g/dL Normal 13.0-17.0 [facility] Comment on above: Performed By: #### L [id number] #### [facility] ([facility]) [address] [place] [address] Immature granulocytes (Bld) [#/Vol] 0.06 10*3/uL Normal 0.00-0.20 [facility] Comment on above: Performed By: #### L [id number] #### [facility] ([facility]) [address] [place] [address] Immature granulocytes/100 WBC (Bld) 0.7 % Normal 0.0-1.0 [facility] Comment on above: Performed By: #### L [id number] #### [facility] ([facility]) [address] [place] [address] Lymphocytes (Bld) [#/Vol] 1.53 10*3/uL Normal 1.20-4.00 [facility] Comment on above: Performed By: #### L [id number] #### [facility] ([facility]) [address] [place] [address] Lymphocytes/100 WBC (Bld) 17.7 % Low 20.0-45.0 [facility] Comment on above: Performed By: #### L [id number] #### [facility] ([facility]) [address] [place] [address] MCH (RBC) [Entitic mass] 33.3 pg High 27.0-33.0 [facility] Comment on above: Performed By: #### L [id number] #### [facility] [address] [place] [address] MCV (RBC) [Entitic vol] 102.1 fL High 82.0-98.0 [facility] Comment on above: Performed By: #### L [id number] #### [facility] ([facility]) [address] [place] [address] Monocytes (Bld) [#/Vol] 0.78 10*3/uL Normal 0.10-1.00 [facility] Comment on above: Performed By: #### L [id number] #### [facility] ([facility]) [address] [place] [address] Monocytes/100 WBC (Bld) 9.0 % Normal 5.0-12.0 [facility] Comment on above: Performed By: #### L [id number] #### [facility] ([facility]) [address] [place] [address] Neutrophils (Bld) [#/Vol] 5.62 10*3/uL Normal 1.60-7.60 [facility] Comment on above: Performed By: #### L [id number] #### [facility] ([facility]) [address] [place] [address] Neutrophils/100 WBC (Bld) 65.2 % Normal 40.0-72.0 [facility] Comment on above: Performed By: #### L [id number] #### [facility] ([facility]) [address] [place] [address] NRBC (PER 100 WBCS) BY AUTOMATED COUNT 0.0 % Normal 0 [facility] Comment on above: Performed By: #### L [id number] #### [facility] ([facility]) [address] [place] [address] PLATELETS (10*3/UL) IN BLOOD AUTOMATED COUNT 187 10*3/uL Normal 150-400 [facility] Comment on above: Performed By: #### L [id number] #### [facility] [address] [place] [address] RBC (Bld) [#/Vol] 3.90 10*6/uL Low 4.20-5.70 [facility] Comment on above: Performed By: #### L [id number] #### [facility] ([facility]) [address] [place] [address] WBC (Bld) [#/Vol] 8.63 10*3/uL Normal 4.00-10.60 [facility] Comment on above: Performed By: #### L [id number] #### [facility] ([facility]) [address] [place] [address] CONSULTon 01-11-2025 CONSULT -- Attestation signed by [...] at least mild coronary artery disease at [facility]. Considering his current presentation we will obtain an echocardiogram. He already underwent cardiac angiogram on 01/11 which showed moderate but heavily calcified triple-vessel disease. He will also need aggressive medical therapy with aspirin, statin and likely colchicine as well in light of the recently published COL C OT trial. Darrell Thomas MD, ScM, MSc Cardiac Second Time Worker Email: [email or web address] Cardiology Consult Note Reason for Consult: unstable angina HPI: Nazario Cortes is a 69 y.o. male with a past medical history significant for reported coronary artery disease (last cath showed 20-30% stenosis in 2008 at [facility]), hyperlipidemia, depression, and seizures. Reported [...] chest pain. He was initially brought to [facility] and subsequently transferred to [facility] for cardiac catheterization. At present, the patient reports mild chest pain but denies shortness of breath, nausea, vomiting, dizziness, or palpitations. He reports a smoking history but quit in 1996. Blood pressure 142/84, heart rate 70s, EKG sinus rhythm with 1st degree AV block NC interval 210. Cardiology ROS: Negative except as [...] 40 mg, oral, Daily PRN HYDROcodone-acetaminop hen ([place]) 5-325 mg tablet take 1 tablet by mouth four times a day if needed for severe pain for up to 7 days meclizine (Antivert) 25 mg tablet take 1 tablet by mouth four times a day if needed for dizziness methocarbamol (Robaxin) 750 mg tablet take 1 tablet by mouth four times a day if needed for muscle spasm rdxeifbtezyl-dnxl-angd rals-folic acid (Multivitamin 50 Plus) tablet Every 24 hours nitroglycerin (NITROSTAT) 0.3 mg, sublingual PHENobarbital (LUMINAL) 64.8 mg, oral, 3 times daily RT phenytoin ER (Dilantin) 100 mg capsule take 2 capsules by mouth three times a day potassium chloride CR (K-Tab) 20 mEq ER table (more content not included)... [facility] 01-11-2025 -- Attestation signed by Arnaud Lyons [...] me. Additional Comments: Arnaud Lyons MD, MPH, [facility], [facility], [facility], [facility] Interventional Cardiology Pager Email: [email or web address] H&P reviewed. The patient was examined and there are no changes to the H&P. Will proceed with coronary angiogram for further assessment. Procedure's details, risks and benefits discussed with the patient and he's agreeable. Normal [facility] PLATELET COUNTon 01-11-2025 PLATELETS (10*3/UL) IN BLOOD AUTOMATED COUNT 177 10*3/uL Normal 150-400 [facility] Comment on above: Performed By: #### L [id number] #### [facility] ([facility]) [address] [place] [address] TROPONIN Ion 01-11-2025 Troponin I.cardiac [Mass/Vol] 0.01 ng/mL Normal 0.00-0.04 [facility] Comment on above: Performed By: #### L [id number] #### [facility] ([facility]) [address] [place] [address] Troponin I.cardiac [Mass/Vol] 0.01 ng/mL Normal 0.00-0.04 [facility] Comment on above: Performed By: #### L [id number] #### [facility] ([facility]) [address] [place] [address] Troponin I.cardiac [Mass/Vol] 0.01 ng/mL Normal 0.00-0.04 [facility] Comment on above: Performed By: #### L [id number] #### [facility] ([facility]) [address] [place] [address] No Panel InformationOrdered By: Fay Adhikari on 11-27-2024 [facility] Radiology Study observation (narrative) [facility] XR knee RT 4V*on 10-17-2024 XR knee RT 4V* [facility] Main [address] [address] XRay Report Signed Patient: Nazario Cortes Jr MR#: [id number] : 1955 Acct:[id number] Age/Sex: 69 / M ADM Date: 10/17/24 Loc: XDUCLY Room: Type: [facility] Attending Dr: Yancy Lawson APRN Copies [...] Hoa Lockwood M.D.10/17/2024 2:40 PM Dictation Location: [place] [address] Transcribed By: [facility] 10/17/24 1440 Dictated By: Hoa Lockwood MD 10/17/24 1438 Signed By: 10/17/24 1440 Normal [facility] XR knee RT 4V*on 09-07-2024 XR knee RT 4V* [facility] [address] [address] XRay Report Signed Patient: Nazario Cortes Jr MR#: [id number] : 1955 Acct:[id number] Age/Sex: 69 / M ADM Date: 09/07/24 Loc: XDUCLY Room: Type: [facility] Attending Dr: Joslyn Garcia APRN Copies [...] Ching Jr., D.O.09/07/2024 4:15 PM Dictation Location: [place] [address] Transcribed By: [facility] 09/07/241614 Dictated By: Bar Ching Jr, DO 09/07/241613 Signed By: 09/07/241614 Normal [facility] Influenza virus A and B and SARS-CoV-2 (COVID-19) RNA panel - Respiratory system specon 08-16-2024 Influenza virus A and B RNA and SARS-CoV-2 (COVID-19) N gene panel ALEX+probe (Resp) Negative [facility] - Microbiology an d Antimicrobial susceptibilityon 08-16-2024 SARS-CoV-2 (COVID-19) RNA ALEX+probe Ql (Unsp spec) Negative [facility] No Panel Informationon 08-16 POC Influenza B (ALEX) Negative [facility] Follow-Upon 08-08-2024 Follow-Up [id number] Naazrio Cortes 1955 M Date Provider Department Center 08/08/2024 CORNELIO NEGRON [facility] SURG [place] Family History Problem Relation Age of Onset Supraventricular tachycardia Mother Stroke Father Kidney cancer Sister Diabetes Sister COPD Brother Family Status - Relation Status Age at Mother Father Sister Brother Level of Service:03112 NC OFFICE/OUTPATIENT ESTABLISHED MOD MDM 30 MIN Reason for Visit and Comments: Follow-up [565097] - Pt is here for a follow up visit for Lumbar Stenosis. Normal [facility] 36on 07-30-2024 36 Talked to [...] given his ongoing issues. Verbalizes understanding. Normal [facility] Telephoneon 07-30-2024 Telephone [id number] Nazario Cortes 1955 M Date Provider Department Center 07/30/2024 CORNELIO NEGRON [facility]G [place] Family History Problem Relation Age of Onset Supraventricular tachycardia Mother Stroke Father Kidney cancer Sister Diabetes Sister COPD Brother Family Status - Relation Status Age at Mother Father Sister Brother Normal [facility] MR CERVICAL SPINE W AND WO C [facility] 07-26-2024 MR CERVICAL SPINE W [...] BOWMAN MD. Not Vldtd Invalid Interpretation Code [facility] XR elbow LT min 3V*on 2023 XR elbow LT min 3V* [facility] [place] [address] [place] [address] XRay Report Signed Patient: Nazario Cortes Jr MR#: [id number] : 1955 Acct:[id number] Age/Sex: 69 / M ADM Date: 05/15/24 Loc: XDUCLY Room: Type: [facility] Attending Dr: Joslyn Garcia [employer] Copies to: Joslyn Garcia APRN Ordering Provider: [...] Zain Fitzpatrick M.D.05/15/2024 4:23 PM Dictation Location: [place] [address] Transcribed By: [facility] 05/15/241622 Dictated By: Zain Fitzpatrick DO 05/15/24 162 Signed By: 05/15/24 162 Normal [facility] Orders Onlyon 04-11-2024 Orders Only [id number] Nazario Cortes 1955 M Date Provider Department [place] 04/11/2024 [id number], HISTORICAL CARD [facility] Family History Problem Relation Age of Onset Supraventricular tachycardia Mother Stroke Father Kidney cancer Sister Diabetes Sister COPD Brother Family Status - Relation Status Age at Mother Father Sister Brother Normal [facility] US CAROTID ART BILon 023 [...] by: KELL BLANDON Date: 2023-01-11 08:42 Normal [facility] ECHOCARDIO M/2D COMPLETEon 0 01-07-2023 ECHOCARDIO M/2D COMPLETE Patient: NAZARIO CORTES Exam Date: 01/07/2023 : 1955 Gender:M Ordering : DR JIGNESH GONSALEZ . Admission #: [id number] Family : Order #: [id number] CLICK HERE TO VIEW EXAM ECHOCARDIOGRAM REPORT [...] Smith M.D. on 01/11/2023 at 18:23 Normal [facility] XR ELBOW LT MIN 3 VIEWSon [...] VIDAL FRASER Date: 2022-12-24 20:23 Normal [facility] XR HIP LT 2 3V [...] VIDAL KRYSTAL Date: 2022-12-24 20:21 Normal [facility] XR HUMERUS LT MIN 2Von [...] by: KELL DELANEY Date: 2022-12-24 21:03 Normal [facility] CBC AUTO DIFFon 11-04-2022 BASO # 0.1 103/ul Normal 0.0-0.1 [facility] Comment on above: Performed By: #### B MP, CMREP, LIPID #### [facility] [address] [place] [address] Dr. Jeimy Tenorio Basophils/100 WBC (Bld) 0.9 % Normal 0.2-2.0 [facility] Comment on above: Performed By: #### B MP, CMREP, LIPID #### [facility] [address] [place] [address] [address] Jeimy Tenorio EO # 0.3 103/ul Normal 0.0-0.7 [facility] Comment on above: Performed By: #### B MP, CMREP, LIPID #### [facility] [address] [place] [address] Dr. Jeimy Tenorio Eosinophils/100 WBC (Bld) 5.2 % Normal 0.9-7.0 [facility] Comment on above: Performed By: #### B MP, CMREP, LIPID #### [facility] [address] [place] [address] Dr. Jeimy Tenorio Erythrocyte distribution width (RBC) [Ratio] 12.9 % Normal 11.0-15.0 [facility] Comment on above: Performed By: #### B MP, CMREP, LIPID #### [facility] [address] [place] [address] Dr. Jeimy Tenorio Hematocrit (Bld) [Volume fraction] 39.5 % Critically low 42.0-54.0 [facility] Comment on above: Performed By: #### B MP, CMREP, LIPID #### [facility] [address] [place] [address] Dr. Jeimy Tenorio Hemoglobin (Bld) [Mass/Vol] 13.1 g/dL Critically low 14.0-18.0 [facility] Comment on above: Performed By: #### B MP, CMREP, LIPID #### [facility] [address] [place] [address] Dr. Jeimy Tenorio IG # 0.03 10e3/ul Normal 0.00-0.03 [facility] Comment on above: Performed By: #### B MP, CMREP, LIPID #### [facility] [address] [place] [address] Dr. Jeimy Tenorio IG % 0.5 % Normal 0.0-0.5 [facility] Comment on above: Performed By: #### B MP, CMREP, LIPID #### [facility] [address] [place] [address] Dr. Jeimy Tenorio LYMPH # 1.5 103/ul Normal 1.2-3.8 [facility] Comment on above: Performed By: #### B MP, CMREP, LIPID #### [facility] [address] [place] [address] Dr. Jeimy Tenorio Lymphocytes/100 WBC (Bld) 22.6 % Normal 20.5-60.0 [facility] Comment on above: Performed By: #### B MP, CMREP, LIPID #### [facility] [address] [place] [address] Dr. Jeimy Tenorio MANUAL DIFF REQ NO Normal [facility] Comment on above: Performed By: #### B MP, CMREP, LIPID #### [facility] [address] [place] [address] Dr. Jeimy Tenorio MCH (RBC) [Entitic mass] 32.8 pg Normal 25.9-34.0 [facility] Comment on above: Performed By: #### B MP, CMREP, LIPID #### [facility] [address] [place] [address] Dr. Jeimy Tenorio MCHC (RBC) [Mass/Vol] 33.2 g/dL Normal 29.9-35.2 [facility] Comment on above: Performed By: #### B MP, CMREP, LIPID #### [facility] [address] [place] [address] Dr. Jeimy Tenorio MCV (RBC) [Entitic vol] 99.0 fL Critically high 80.0-94.0 [facility] Comment on above: Performed By: #### B MP, CMREP, LIPID #### [facility] [address] [place] [address] Dr. Jeimy Tenorio MONO # 0.7 103/ul Normal 0.3-0.8 [facility] Comment on above: Performed By: #### B MP, CMREP, LIPID #### [facility] [address] [place] [address] Dr. Jeimy Tenorio Monocytes/100 WBC (Bld) 10.6 % Normal 1.7-12.0 [facility] Comment on above: Performed By: #### B MP, CMREP, LIPID #### [facility] [address] [place] [address] Dr. Jeimy Tenorio NEUT # 4.0 103/ul Normal 1.4-6.5 [facility] Comment on above: Performed By: #### B MP, CMREP, LIPID #### [facility] [address] [place] [address] Dr. Jeimy Tenorio Neutrophils/100 WBC (Bld) 60.2 % Normal 43.0-75.0 [facility] Comment on above: Performed By: #### B MP, CMREP, LIPID #### [facility] [address] [place] [address] [address] Jeimy Tenorio Platelet mean volume (Bld) [Entitic vol] 9.7 fL Normal 9.5-13.5 [facility] Comment on above: Performed By: #### B MP, CMREP, LIPID #### [facility] [address] [id number] Jeimy Tenorio PLT 176 103/ul Normal 150-450 [facility] Comment on above: Performed By: #### B MP, CMREP, LIPID #### [facility] [address] [place] [address] [address] Jeimy Tenorio RBC 3.99 106/ul Critically low 4.70-6.10 [facility] Comment on above: Performed By: #### B MP, CMREP, LIPID #### [facility] [address] [place] [address] [address] Jeimy Tenorio WBC 6.6 103/ul Normal 4.0-11.0 [facility] Comment on above: Performed By: #### B MP, CMREP, LIPID #### [facility] [id number] Jeimy Tenorio [address] HEAD WO CONon [...] ALEJANDRO MILLEREN Date: 2022-11-04 14:08 Normal [facility] Covid-19 PCR (CVDTB)on 10-21 SARS-CoV-2 (COVID-19) RNA ALEX+probe Ql (Unsp spec) Not detected Normal NOT DETECTED [facility] Comment on above: Result Comment: This test is not yet approved or cleared by the [place] FDA. When there are no FDA-approved or cleared tests available, and other criteria are met, FDA can make tests available under an emergency access mechanism called an Emergency Use Authorization (EUA). The EUA for this test is supported by the [place] of Health and Human Service's (HHS's) declaration [...] By: #### B MP, CMREP, LIPID #### [facility] [address] [place] [address] Dr. Jeimy Tenorio INFLUENZA A AND B AGon 11-04 INFLUANE SEE BELOW Normal [facility] Comment on above: Result Comment: Nega tive for Flu A protein angiten. Infection due to Flu A cannot be ruled out. Flu A angiten in the sample may be below the detection limit of the test. Performed By: #### I NFLUAB #### [facility] [address] [place] [address] [address] [facility] Normal [facility] Comment on above: Result Comment: Nega tive for Flu B protein antigen. Infection due to Flu B cannot be ruled out. Flu B antigen in the sample may be below the detection limit of the test. Performed By: #### I NFLUAB #### [facility] [address] [place] [address] Dr. Jeimy Tenorio INFLUENZA A AG Negative Normal NEGATIVE SEE COMMENT [facility] Comment on above: Performed By: #### I NFLUAB #### [facility] [address] [place] [address] Dr. Jeimy Tenorio INFLUENZA B AG Negative Normal NEGATIVE SEE COMMENT [facility] Comment on above: Performed By: #### I NFLUAB #### [facility] [address] [place] [address] Dr. Jeimy Tenorio INTERNAL CONTROLS Within Normal Limits Normal Wi thin Normal Limits [facility] Comment on above: Performed By: #### I NFLUAB #### [facility] [address] [place] [address] Dr. Jeimy Tenorio PROF CHEM 8 (BAS METB)on Anion gap [Moles/Vol] 9.7 mmol/L Normal [facility] Comment on above: Performed By: #### C BC #### [facility] [address] [place] [address] Dr. Jeimy Tenorio Calcium [Mass/Vol] 8.0 mg/dL Critically low 8.5-10.1 [facility] Comment on above: Performed By: #### C BC #### [facility] [address] [place] [address] Dr. Jeimy Tenorio Chloride [Moles/Vol] 104 mmol/L Normal 98-107 [facility] Comment on above: Performed By: #### C BC #### [facility] [address] [place] [address] Dr. Jeimy Tenorio CO2 [Moles/Vol] 31.1 mmol/L Normal 21.0-32.0 [facility] Comment on above: Performed By: #### C BC #### [facility] [address] [place] [address] Dr. Jeimy Tenorio Creatinine [Mass/Vol] 0.75 mg/dL Normal 0.70-1.30 [facility] Comment on above: Performed By: #### C BC #### [facility] [address] [address] [address] Jeimy Tenorio EGFR-AF PERUVIAN >60 Normal >=60 [facility] Comment on above: Performed By: #### C BC #### [facility] [address] [address] [address] Jeimy Tenorio EGFR-NON AF PERUVIAN >60 Normal >=60 [facility] Comment on above: Performed By: #### C BC #### [facility] [address] [address] [address] Jeimy Tenorio Glucose [Mass/Vol] 76 mg/dL Normal 74-[address] [facility] Comment on above: Performed By: #### C BC #### [facility] [address] [place] [address] Dr. Jeimy Tenorio Potassium [Moles/Vol] 3.8 mmol/L Normal 3.5-5.1 [facility] Comment on above: Performed By: #### C BC #### [facility] [address] [address] [address] Jeimy Tenorio Sodium [Moles/Vol] 141 mmol/L Normal 136-[address] [facility] Comment on above: Performed By: #### C BC #### [facility] [address] [place] [address] Dr. Jeimy Tenorio Urea nitrogen [Mass/Vol] 12.0 mg/dL Normal 7.0-18.0 [facility] Comment on above: Performed By: #### C BC #### [facility] [address] [place] [address] Dr. Jeimy Tenorio Urea nitrogen/Creatinine [Mass ratio] 16.0 mg/mg Normal [facility] Comment on above: Performed By: #### C BC #### [facility] [address] [address] [address] Jeimy Tenorio TROPONIN, HIGH SENSITIVITYon 11-04-2022 HSTROP 5.8 pg/mL Normal 4.0-76.1 [facility] Comment on above: Result Comment: CUT- OFF POINTS HAVE BEEN ESTABLISHED BASED ON THE FOURTH UNIVERSAL DEFINITIONS OF MYOCARDIAL INFARCTION. THE UPPER REFERENCE LIMIT (URL) OF TROPONIN, DEFINED THE 99TH PERCENTILE OF cTnI DISTRIBUTION IN A REFERENCE POPULATION, HAS BEEN CONFIRMED THE DECISION THRESHOLD FOR [place] DIAGNOSIS. Performed By: #### C BC #### [facility] [address] [place] [address] Dr. Jeimy Tenorio CBC AUTO DIFFon 09-29-2022 BASO # 0.1 103/ul Normal 0.0-0.1 [facility] Comment on above: Performed By: #### B MP, CMREP, LIPID #### [facility] [address] [place] [address] Dr. Jeimy Tenorio Basophils/100 WBC (Bld) 1.2 % Normal 0.2-2.0 [facility] Comment on above: Performed By: #### B MP, CMREP, LIPID #### [facility] [address] [place] [address] Dr. Jeimy Tenorio EO # 0.3 103/ul Normal 0.0-0.7 [facility] Comment on above: Performed By: #### B MP, CMREP, LIPID #### [facility] [address] [place] [address] Dr. Jeimy Tenorio Eosinophils/100 WBC (Bld) 4.9 % Normal 0.9-7.0 [facility] Comment on above: Performed By: #### B MP, CMREP, LIPID #### [facility] [address] [place] [address] Dr. Jeimy Tenorio Erythrocyte distribution width (RBC) [Ratio] 13.2 % Normal 11.0-15.0 [facility] Comment on above: Performed By: #### B MP, CMREP, LIPID #### [facility] [address] [place] [address] Dr. Jeimy Tenorio Hematocrit (Bld) [Volume fraction] 42.3 % Normal 42.0-54.0 [facility] Comment on above: Performed By: #### B MP, CMREP, LIPID #### [facility] [address] [place] [address] Dr. Jeimy Tenorio Hemoglobin (Bld) [Mass/Vol] 13.8 g/dL Critically low 14.0-18.0 [facility] Comment on above: Performed By: #### B MP, CMREP, LIPID #### [facility] [address] [place] [address] Dr. Jeimy Tenorio IG # 0.02 10e3/ul Normal 0.00-0.03 [facility] Comment on above: Performed By: #### B MP, CMREP, LIPID #### [facility] [address] [place] [address] Dr. Jeiym Tenorio IG % 0.3 % Normal 0.0-0.5 [facility] Comment on above: Performed By: #### B MP, CMREP, LIPID #### [facility] [address] [place] [address] Dr. Jeimy Tenorio LYMPH # 1.3 103/ul Normal 1.2-3.8 [facility] Comment on above: Performed By: #### B MP, CMREP, LIPID #### [facility] [address] [place] [address] Dr. Jeimy Tenorio Lymphocytes/100 WBC (Bld) 19.5 % Critically low 20.5-60.0 [facility] Comment on above: Performed By: #### B MP, CMREP, LIPID #### [facility] [address] [place] [address] Dr. Jeimy Tenorio MANUAL DIFF REQ NO Normal [facility] Comment on above: Performed By: #### B MP, CMREP, LIPID #### [facility] [address] [place] [address] Dr. Jeimy Tenorio MCH (RBC) [Entitic mass] 32.9 pg Normal 25.9-34.0 [facility] Comment on above: Performed By: #### B MP, CMREP, LIPID #### [facility] [address] [place] [address] Dr. Jeimy Tenorio MCHC (RBC) [Mass/Vol] 32.6 g/dL Normal 29.9-35.2 [facility] Comment on above: Performed By: #### B MP, CMREP, LIPID #### [facility] [address] [place] [address] Dr. Jeimy Tenorio MCV (RBC) [Entitic vol] 100.7 fL Critically high 80.0-94.0 [facility] Comment on above: Performed By: #### B MP, CMREP, LIPID #### [facility] [address] [place] [address] Dr. Jeimy Tenorio MONO # 0.7 103/ul Normal 0.3-0.8 [facility] Comment on above: Performed By: #### B MP, CMREP, LIPID #### [facility] [address] [place] [address] Dr. Jeimy Tenorio Monocytes/100 WBC (Bld) 9.9 % Normal 1.7-12.0 [facility] Comment on above: Performed By: #### B MP, CMREP, LIPID #### [facility] [address] [place] [address] Dr. Jeimy Tenorio NEUT # 4.3 103/ul Normal 1.4-6.5 [facility] Comment on above: Performed By: #### B MP, CMREP, LIPID #### [facility] [address] [place] [address] Dr. Jeimy Tenorio Neutrophils/100 WBC (Bld) 64.2 % Normal 43.0-75.0 [facility] Comment on above: Performed By: #### B MP, CMREP, LIPID #### [facility] [address] [place] [address] Dr. Jeimy Tenorio Platelet mean volume (Bld) [Entitic vol] 10.4 fL Normal 9.5-13.5 [facility] Comment on above: Performed By: #### B MP, CMREP, LIPID #### [facility] [address] [place] [address] Dr. Jeimy Tenorio PLT 209 103/ul Normal 150-450 [facility] Comment on above: Performed By: #### B MP, CMREP, LIPID #### [facility] [address] [place] [address] Dr. Jeimy Tenorio RBC 4.20 106/ul Critically low 4.70-6.10 [facility] Comment on above: Performed By: #### B MP, CMREP, LIPID #### [facility] [address] [address] [address] Jeimy Tenorio WBC 6.7 103/ul Normal 4.0-11.0 [facility] Comment on above: Performed By: #### B MP, CMREP, LIPID #### [facility] [address] [address] [address] Jeimy Tenorio DILANTINon 09-29-2022 Phenytoin [Mass/Vol] 23.7 ug/mL Critically high 10.0-20.0 [facility] Comment on above: Performed By: #### C BC #### [facility] [address] [place] [address] Dr. Jeimy Tenorio GLYCOHEMOGLOBIN A1Con 2021 ADA RECOMMENDATION SEE BELOW Normal [facility] Comment on above: Result Comment: ADA RECOMMENDED LIMIT 4.0 - 6.0 ADA THERAPEUTIC TARGET < 7.0 ACTION SUGGESTED > 7.0 Performed By: #### A 1C #### [facility] [address] [address] [address] Jeimy Tenorio Glucose [Mass/Vol] 105 mg/dL Normal [facility] Comment on above: Performed By: #### A 1C #### [facility] [address] [place] [address] Dr. Jeimy Tenorio HbA1c (Bld) [Mass fraction] 5.3 % Normal 4.5-6.2 [facility] Comment on above: Performed By: #### A 1C #### [facility] [address] [place] [address] Dr. Jeimy Tenorio LIPID PROFILEon 09-29-2022 CHOL-HDL RATIO NORM SEE BELOW Normal [facility] Comment on above: Result Comment: 3.3 - 4.4 LOW RISK 4.4 - 7.1 AVERAGE RISK 7.1 - 11.0 MODERATE RISK >11.0 HIGH RISK Performed By: #### B MP, CMREP, LIPID #### [facility] [address] [place] [address] Dr. Jeimy Tenorio Cholesterol [Mass/Vol] 178 mg/dL Normal <=200 [facility] Comment on above: Performed By: #### B MP, CMREP, LIPID #### [facility] [address] [address] [address] Jeimy Tenorio Cholesterol in HDL [Mass/Vol] 56 mg/dL Normal 40-60 [facility] Comment on above: Performed By: #### B MP, CMREP, LIPID #### [facility] [address] [address] [address] Jeimy Tenorio Cholesterol in LDL [Mass/Vol] 86.8 mg/dL Normal [facility] Comment on above: Performed By: #### B MP, CMREP, LIPID #### [facility] [address] [place] [address] Dr. Jeimy Tenorio Cholesterol.total/Cho lesterol in HDL [Mass ratio] 3.2 {ratio} Normal [facility] Comment on above: Performed By: #### B MP, CMREP, LIPID #### [facility] [address] [place] [address] Dr. Jeimy Tenorio HDL NORMAL > or = 60 mg/dl - LO W CARDIOVASCULAR RISK <40 mg/dl - HIGH CARDIOVASCULAR RISK Normal [facility] Comment on above: Performed By: #### B MP, CMREP, LIPID #### [facility] [address] [address] [address] Jeimy Tenorio LDL CALC NORMAL SEE BELOW Normal [facility] Comment on above: Result Comment: <100 mg/dl OPTIMAL 100 - 129 mg/dl NEAR OR ABOVE OPTIMAL 130 - 159 mg/dl BORDERLINE HIGH 160 - 189 mg/dl HIGH >190 mg/dl VERY HIGH Performed By: #### B MP, CMREP, LIPID #### [facility] [address] [address] [address] Jeimy Tenorio Triglyceride [Mass/Vol] 176 mg/dL Critically high <=150 [facility] Comment on above: Performed By: #### B MP, CMREP, LIPID #### [facility] [address] [address] [address] Jeimy Tenorio VLDL CALC 35.2 mg/dL Normal [facility] Comment on above: Performed By: #### B MP, CMREP, LIPID #### [facility] [address] [place] [address] Dr. Jeimy Tenorio LIVER PROFILEon 09-29-2022 Albumin [Mass/Vol] 3.5 g/dL Normal 3.4-5.[address] [facility] Comment on above: Performed By: #### B MP, CMREP, LIPID #### [facility] [address] [place] [address] Dr. Jeimy Tenorio Albumin/Globulin [Mass ratio] 0.8 {ratio} Normal [facility] Comment on above: Performed By: #### B MP, CMREP, LIPID #### [facility] [address] [place] [address] Dr. Jeimy Tenorio ALP [Catalytic activity/Vol] 139 U/L Critically high 46-116 [facility] Comment on above: Performed By: #### B MP, CMREP, LIPID #### [facility] [address] [place] [address] Dr. Jeimy Tenorio ALT [Catalytic activity/Vol] 25 U/L Normal 16-63 [facility] Comment on above: Performed By: #### B MP, CMREP, LIPID #### [facility] [address] [place] [address] Dr. Jeimy Tenorio AST [Catalytic activity/Vol] 23 U/L Normal 15-37 [facility] Comment on above: Performed By: #### B MP, CMREP, LIPID #### [facility] [address] [place] [address] Dr. Jeimy Tenorio BILI, CONJUGATED 0.0 mg/dL Normal 0.0-0.2 [facility] Comment on above: Performed By: #### B MP, CMREP, LIPID #### [facility] [address] [place] [address] Dr. Jeimy Tenorio Bilirubin [Mass/Vol] 0.3 mg/dL Normal 0.2-1.0 [facility] Comment on above: Performed By: #### B MP, CMREP, LIPID #### [facility] [address] [place] [address] Dr. Jeimy Tenorio Globulin (S) [Mass/Vol] 4.3 g/dL Normal [facility] Comment on above: Performed By: #### B MP, CMREP, LIPID #### [facility] [address] [place] [address] Dr. Jeimy Tenorio Protein [Mass/Vol] 7.8 g/dL Normal 6.4-8.2 [facility] Comment on above: Performed By: #### B MP, CMREP, LIPID #### [facility] [address] [address] [address] Jeimy Tenorio PROF CHEM 8 (BAS METB)on Anion gap [Moles/Vol] 8.7 mmol/L Normal [facility] Comment on above: Performed By: #### B MP, CMREP, LIPID #### [facility] [address] [place] [address] Dr. Jeimy Tenorio Calcium [Mass/Vol] 8.7 mg/dL Normal 8.5-10.1 [facility] Comment on above: Performed By: #### B MP, CMREP, LIPID #### [facility] [address] [place] [address] Dr. Jeimy Tenorio Chloride [Moles/Vol] 104 mmol/L Normal 98-107 [facility] Comment on above: Performed By: #### B MP, CMREP, LIPID #### [facility] [address] [address] [address] Jeimy Tenorio CO2 [Moles/Vol] 29.8 mmol/L Normal 21.0-32.[address] [facility] Comment on above: Performed By: #### B MP, CMREP, LIPID #### [facility] [address] [place] [address] Dr. Jeimy Tenorio Creatinine [Mass/Vol] 0.76 mg/dL Normal 0.70-1.30 [facility] Comment on above: Performed By: #### B MP, CMREP, LIPID #### [facility] [address] [place] [address] Dr. Jeimy Tenorio EGFR-AF PERUVIAN >60 Normal >=60 [facility] Comment on above: Performed By: #### B MP, CMREP, LIPID #### [facility] [address] [place] [address] Dr. Jeimy Tenorio EGFR-NON AF PERUVIAN >60 Normal >=60 [facility] Comment on above: Performed By: #### B MP, CMREP, LIPID #### [facility] [address] [address] [address] Jeimy Tenorio Glucose [Mass/Vol] 95 mg/dL Normal 74-[address] [facility] Comment on above: Performed By: #### B MP, CMREP, LIPID #### [facility] [address] [place] [address] Dr. Jeimy Tenorio Potassium [Moles/Vol] 4.5 mmol/L Normal 3.5-5.1 [facility] Comment on above: Performed By: #### B MP, CMREP, LIPID #### [facility] [address] [place] [address] Dr. Jeimy Tenorio Sodium [Moles/Vol] 138 mmol/L Normal 136-[address] [facility] Comment on above: Performed By: #### B MP, CMREP, LIPID #### [facility] [address] [place] [address] Dr. Jeimy Tenorio Urea nitrogen [Mass/Vol] 18.0 mg/dL Normal 7.0-18.0 [facility] Comment on above: Performed By: #### B MP, CMREP, LIPID #### [facility] [address] [place] [address] Dr. Jeimy Tenorio Urea nitrogen/Creatinine [Mass ratio] 23.7 mg/mg Normal [facility] Comment on above: Performed By: #### B MP, CMREP, LIPID #### [facility] [address] [place] [address] Dr. Jeimy Tenorio TSHon 09-29-2022 TSH 1.694 uIU/mL Normal 0.358-3.740 [facility] Comment on above: Performed By: #### B MP, CMREP, LIPID #### [facility] [address] [address] [address] Jeimy Tenorio CARDIAC SAWYER 3-6on 2 CK [Catalytic activity/Vol] 47 U/L Normal 39-308 [facility] Comment on above: Performed By: #### B MP, CMREP, LIPID #### [facility] [address] [address] [address] Jeimy Tenorio CK.MB [Mass/Vol] 0.77 ng/mL Normal <=3.[address] [facility] Comment on above: Performed By: #### B MP, CMREP, LIPID #### [facility] [address] [address] [address] Jeimy Tenorio HSTROP 6.9 pg/mL Normal 4.0-76.1 [facility] Comment on above: Result Comment: CUT- OFF POINTS HAVE BEEN ESTABLISHED BASED ON THE FOURTH UNIVERSAL DEFINITIONS OF MYOCARDIAL INFARCTION. THE UPPER REFERENCE LIMIT (URL) OF TROPONIN, DEFINED THE 99TH PERCENTILE OF cTnI DISTRIBUTION IN A REFERENCE POPULATION, HAS BEEN CONFIRMED THE DECISION THRESHOLD FOR TN DIAGNOSIS. Performed By: #### B MP, CMREP, LIPID #### [facility] [address] [place] [address] Dr. Jeimy Tenorio CK [Catalytic activity/Vol] 53 U/L Normal 39-308 [facility] Comment on above: Performed By: #### C BC #### [facility] [address] [place] [address] Dr. Jeimy Tenorio CK.MB [Mass/Vol] 0.80 ng/mL Normal <=3.[address] [facility] Comment on above: Performed By: #### C BC #### [facility] [address] [place] [address] Dr. Jeimy Tenorio HSTROP 6.2 pg/mL Normal 4.0-76.1 [facility] Comment on above: Result Comment: CUT- OFF POINTS HAVE BEEN ESTABLISHED BASED ON THE FOURTH UNIVERSAL DEFINITIONS OF MYOCARDIAL INFARCTION. THE UPPER REFERENCE LIMIT (URL) OF TROPONIN, DEFINED THE 99TH PERCENTILE OF cTnI DISTRIBUTION IN A REFERENCE POPULATION, HAS BEEN CONFIRMED THE DECISION THRESHOLD FOR TN DIAGNOSIS. Performed By: #### C BC #### [facility] [address] [address] [address] Jeimy Tenorio CBC AUTO DIFFon 06-12-2022 BASO # 0.1 103/ul Normal 0.0-0.1 [facility] Comment on above: Performed By: #### C BC #### [facility] [address] [place] [address] Dr. Jeimy Tenorio Basophils/100 WBC (Bld) 0.9 % Normal 0.2-2.0 [facility] Comment on above: Performed By: #### C BC #### [facility] [address] [place] [address] Dr. Jeimy Tenorio EO # 0.3 103/ul Normal 0.0-0.7 [facility] Comment on above: Performed By: #### C BC #### [facility] [address] [place] [address] Dr. Jeimy Tenorio Eosinophils/100 WBC (Bld) 5.2 % Normal 0.9-7.0 [facility] Comment on above: Performed By: #### C BC #### [facility] [address] [place] [address] Dr. Jeimy Tenorio Erythrocyte distribution width (RBC) [Ratio] 13.0 % Normal 11.0-15.0 [facility] Comment on above: Performed By: #### C BC #### [facility] [address] [place] [address] Dr. Jeimy Tenorio Hematocrit (Bld) [Volume fraction] 39.1 % Critically low 42.0-54.0 [facility] Comment on above: Performed By: #### C BC #### [facility] [address] [place] [address] Dr. Jeimy Tenorio Hemoglobin (Bld) [Mass/Vol] 13.2 g/dL Critically low 14.0-18.0 [facility] Comment on above: Performed By: #### C BC #### [facility] [address] [place] [address] Dr. Jeiym Tenorio IG # 0.03 10e3/ul Normal 0.00-0.03 [facility] Comment on above: Performed By: #### C BC #### [facility] [address] [place] [address] Dr. Jeimy Tenorio IG % 0.5 % Normal 0.0-0.5 [facility] Comment on above: Performed By: #### C BC #### [facility] [address] [place] [address] Dr. Jeimy Tenorio LYMPH # 1.7 103/ul Normal 1.2-3.8 [facility] Comment on above: Performed By: #### C BC #### [facility] [address] [place] [address] Dr. Jeimy Tenorio Lymphocytes/100 WBC (Bld) 26.0 % Normal 20.5-60.0 [facility] Comment on above: Performed By: #### C BC #### [facility] [address] [place] [address] Dr. Jeimy Tenorio MANUAL DIFF REQ NO Normal [facility] Comment on above: Performed By: #### C BC #### [facility] [address] [place] [address] Dr. Jeimy Tenorio MCH (RBC) [Entitic mass] 33.2 pg Normal 25.9-34.0 [facility] Comment on above: Performed By: #### C BC #### [facility] [address] [place] [address] Dr. Jeimy Tenorio MCHC (RBC) [Mass/Vol] 33.8 g/dL Normal 29.9-35.2 [facility] Comment on above: Performed By: #### C BC #### [facility] [address] [place] [address] Dr. Jeimy Tenorio MCV (RBC) [Entitic vol] 98.5 fL Critically high 80.0-94.0 [facility] Comment on above: Performed By: #### C BC #### [facility] [address] [place] [address] Dr. Jeimy Tenorio MONO # 0.8 103/ul Normal 0.3-0.8 [facility] Comment on above: Performed By: #### C BC #### [facility] [address] [address] [address] Jeimy Tenorio Monocytes/100 WBC (Bld) 12.2 % Critically high 1.7-12.0 [facility] Comment on above: Performed By: #### C BC #### [facility] [address] [place] [address] Dr. Jeimy Tenorio NEUT # 3.6 103/ul Normal 1.4-6.5 [facility] Comment on above: Performed By: #### C BC #### [facility] [address] [address] [address] Jeimy Tenorio Neutrophils/100 WBC (Bld) 55.2 % Normal 43.0-75.0 [facility] Comment on above: Performed By: #### C BC #### [facility] [address] [place] [address] Dr. Jeimy Tenorio Platelet mean volume (Bld) [Entitic vol] 9.9 fL Normal 9.5-13.5 [facility] Comment on above: Performed By: #### C BC #### [facility] [address] [place] [address] Dr. Jeimy Tenorio PLT 174 103/ul Normal 150-450 [facility] Comment on above: Performed By: #### C BC #### [facility] [address] [place] [address] Dr. Jeimy Tenorio RBC 3.97 106/ul Critically low 4.70-6.10 [facility] Comment on above: Performed By: #### C BC #### [facility] [address] [place] [address] Dr. Jeimy Tenorio WBC 6.5 103/ul Normal 4.0-11.0 [facility] Comment on above: Performed By: #### C BC #### [facility] [address] [place], [place] [id number] Dr. Jeimy Tenorio CTA CHEST WO W [...] MAMIE ALFORD Date: 2022-06-12 00:21 Normal [facility] Covid-19 PCR (CVDTB)on 05-22 SARS-CoV-2 (COVID-19) RNA ALEX+probe Ql (Unsp spec) Not detected Normal NOT DETECTED [facility] Comment on above: Result [...] for this test is supported by the [place] of Health and Human Service's declaration that [...] By: #### B MP, CMREP, LIPID #### [facility] [address] [place] [address] Dr. Jeimy Tenorio ER URINE PROFILEon 2 Bilirubin Ql (U) Negative Normal NEGATIVE [facility] Comment on above: Performed By: #### E RUR #### [facility] [address] [place] [address] Dr. Jeimy Tenorio Clarity (U) CLEAR Normal CLEAR [facility] Comment on above: Performed By: #### E RUR #### [facility] [address] [place] [address] Dr. Jeimy Tenorio Color (U) LT. YELLOW Normal YELLOW [facility] Comment on above: Performed By: #### E RUR #### [facility] [address] [place] [address] Dr. Jeimy Tenorio ERUAHVictorina A micrscopic examination will be performed if indicated. Normal [facility] Comment on above: Performed By: #### E RUR #### [facility] [address] [place] [address] Dr. Jeimy Tenorio Glucose Ql (U) Negative Normal NEGATIVE [facility] Comment on above: Performed By: #### E RUR #### [facility] [address] [place] [address] Dr. Jeimy Tenorio Hemoglobin Ql (U) Negative Normal NEGATIVE [facility] Comment on above: Performed By: #### E RUR #### [facility] [address] [place] [address] Dr. Jeimy Tenorio Ketones Ql (U) TRACE Abnormal NEGATIVE [facility] Comment on above: Performed By: #### E RUR #### [facility] [address] [place] [address] Dr. Jiemy Tenorio LEUKOCYTES Negative Normal NEGATIVE [facility] Comment on above: Performed By: #### E RUR #### [facility] [address] [place] [address] Dr. Jeimy Tenorio Nitrite Ql (U) Negative Normal NEGATIVE [facility] Comment on above: Performed By: #### E RUR #### [facility] [address] [place] [address] Dr. Jeimy Tenorio pH (U) 5.5 [pH] Normal 5-9 [facility] Comment on above: Performed By: #### E RUR #### [facility] [address] [place] [address] Dr. Jeimy Tenorio SPEC GRAVITY 1.010 Normal 1.005-<=1.[address] [place] [address] Comment on above: Performed By: #### E RUR #### [facility] [address] [place] [address] Dr. Jeimy Tenorio UA PROTEIN Negative Normal NEGATIVE/ TRACE [facility] Comment on above: Performed By: #### E RUR #### [facility] [address] [place] [address] Dr. Jeimy Tenorio UR MICRO IND NOT INDICATED Normal [facility] Comment on above: Performed By: #### E RUR #### [facility] [address] [place] [address] Dr. Jeimy Tenorio Urobilinogen Qn (U) 0.2 {Raphael'U}/dL Normal 0.2 - 1. 0 [facility] Comment on above: Performed By: #### E RUR #### [facility] [address] [place] [address] Dr. Jeimy Tenorio GLYCOHEMOGLOBIN A1Con 2021 ADA RECOMMENDATION SEE BELOW Normal [facility] Comment on above: Result Comment: ADA RECOMMENDED LIMIT 4.0 - 6.0 ADA THERAPEUTIC TARGET < 7.0 ACTION SUGGESTED > 7.0 Performed By: #### C BC #### [facility] [address] [place] [address] Dr. Jeimy Tenorio Glucose [Mass/Vol] 103 mg/dL Normal [facility] Comment on above: Performed By: #### C BC #### [facility] [address] [place] [address] Dr. Jeimy Tenorio HbA1c (Bld) [Mass fraction] 5.2 % Normal 4.5-6.2 [facility] Comment on above: Performed By: #### C BC #### [facility] [address] [address] [address] Jeimy Tenorio LIPID PROFILEon 06-12-2022 CHOL-HDL RATIO NORM SEE BELOW Normal [facility] Comment on above: Result Comment: 3.3 - 4.4 LOW RISK 4.4 - 7.1 AVERAGE RISK 7.1 - 11.0 MODERATE RISK >11.0 HIGH RISK Performed By: #### B MP, CMREP, LIPID #### [facility] [address] [address] [address] Jeimy Tenorio Cholesterol [Mass/Vol] 142 mg/dL Normal <=200 [facility] Comment on above: Performed By: #### B MP, CMREP, LIPID #### [facility] [address] [address] [address] Jeimy Tenorio Cholesterol in HDL [Mass/Vol] 49 mg/dL Normal 40-60 [facility] Comment on above: Performed By: #### B MP, CMREP, LIPID #### [facility] [address] [address] [address] Jeimy Tenorio Cholesterol in LDL [Mass/Vol] 64.6 mg/dL Normal [facility] Comment on above: Performed By: #### B MP, CMREP, LIPID #### [facility] [address] [address] [address] Jeimy Tenorio Cholesterol.total/Cho lesterol in HDL [Mass ratio] 2.9 {ratio} Normal [facility] Comment on above: Performed By: #### B MP, CMREP, LIPID #### [facility] [address] [address] [address] Jeimy Tenorio HDL NORMAL > or = 60 mg/dl - LO W CARDIOVASCULAR RISK <40 mg/dl - HIGH CARDIOVASCULAR RISK Normal [facility] Comment on above: Performed By: #### B MP, CMREP, LIPID #### [facility] [address] [address] [address] Jeimy Tenorio LDL CALC NORMAL SEE BELOW Normal [facility] Comment on above: Result Comment: <100 mg/dl OPTIMAL 100 - 129 mg/dl NEAR OR ABOVE OPTIMAL 130 - 159 mg/dl BORDERLINE HIGH 160 - 189 mg/dl HIGH >190 mg/dl VERY HIGH Performed By: #### B MP, CMREP, LIPID #### [facility] [address] [address] [address] Jeimy Tenorio Triglyceride [Mass/Vol] 142 mg/dL Normal <=150 [facility] Comment on above: Performed By: #### B MP, CMREP, LIPID #### [facility] [address] [address] [address] Jeimy Tenorio VLDL CALC 28.4 mg/dL Normal [facility] Comment on above: Performed By: #### B MP, CMREP, LIPID #### [facility] [address] [address] [address] Jeimy Tenorio PROF CHEM 8 (BAS METB)on Anion gap [Moles/Vol] 10.1 mmol/L Normal [facility] Comment on above: Performed By: #### B MP, CMREP, LIPID #### [facility] [address] [address] [address] Jeimy Tenorio Calcium [Mass/Vol] 8.0 mg/dL Critically low 8.5-10.[address] [facility] Comment on above: Performed By: #### B MP, CMREP, LIPID #### [facility] [address] [address] [address] Jeimy Tenorio Chloride [Moles/Vol] 104 mmol/L Normal 98-107 [facility] Comment on above: Performed By: #### B MP, CMREP, LIPID #### [facility] [address] [address] [address] Jeimy Tenorio CO2 [Moles/Vol] 27.0 mmol/L Normal 21.0-32.0 [facility] Comment on above: Performed By: #### B MP, CMREP, LIPID #### [facility] [address] [address] [address] Jeimy Tenorio Creatinine [Mass/Vol] 0.79 mg/dL Normal 0.70-1.30 [facility] Comment on above: Performed By: #### B MP, CMREP, LIPID #### [facility] [address] [place] [address] Dr. Jeimy Tenorio EGFR-AF PERUVIAN >60 Normal >=60 [facility] Comment on above: Performed By: #### B MP, CMREP, LIPID #### [facility] [address] [place] [address] Dr. Jeimy Tenorio EGFR-NON AF PERUVIAN >60 Normal >=60 [facility] Comment on above: Performed By: #### B MP, CMREP, LIPID #### [facility] [address] [place] [address] Dr. Jeimy Tenorio Glucose [Mass/Vol] 101 mg/dL Normal 74-[address] [facility] Comment on above: Performed By: #### B MP, CMREP, LIPID #### [facility] [address] [place] [address] Dr. Jeimy Tenorio Potassium [Moles/Vol] 4.1 mmol/L Normal 3.5-5.1 [facility] Comment on above: Performed By: #### B MP, CMREP, LIPID #### [facility] [address] [place] [address] Dr. Jeimy Tenorio Sodium [Moles/Vol] 137 mmol/L Normal 136-[address] [facility] Comment on above: Performed By: #### B MP, CMREP, LIPID #### [facility] [address] [place] [address] Dr. Jeimy Tenorio Urea nitrogen [Mass/Vol] 15.0 mg/dL Normal 7.0-18.0 [facility] Comment on above: Performed By: #### B MP, CMREP, LIPID #### [facility] [address] [place] [address] Dr. Jeimy Tenorio Urea nitrogen/Creatinine [Mass ratio] 19.0 mg/mg Normal [facility] Comment on above: Performed By: #### B MP, CMREP, LIPID #### [facility] [address] [place] [address] Dr. Jeimy Tenorio CARDIAC SAWYER ADMITon 022 CK [Catalytic activity/Vol] 50 U/L Normal 39-308 [facility] Comment on above: Performed By: #### C BC #### [facility] [address] [place] [address] Dr. Jeimy Tenorio CK.MB [Mass/Vol] 0.80 ng/mL Normal <=3.[address] [facility] Comment on above: Performed By: #### C BC #### [facility] [address] [place] [address] Dr. Jeimy Tenorio HSTROP 5.2 pg/mL Normal 4.0-76.1 [facility] Comment on above: Result Comment: CUT- OFF POINTS HAVE BEEN ESTABLISHED BASED ON THE FOURTH UNIVERSAL DEFINITIONS OF MYOCARDIAL INFARCTION. THE UPPER REFERENCE LIMIT (URL) OF TROPONIN, DEFINED THE 99TH PERCENTILE OF cTnI DISTRIBUTION IN A REFERENCE POPULATION, HAS BEEN CONFIRMED THE DECISION THRESHOLD FOR [place] DIAGNOSIS. Performed By: #### C BC #### [facility] [address] [place] [address] Dr. Jeimy Tenorio MAGALIE 41 ng/mL Normal 16-96 [facility] Comment on above: Performed By: #### C BC #### [facility] [address] [place] [address] Dr. Jeimy Tenorio CBC AUTO DIFFon 06-11-2022 BASO # 0.0 103/ul Normal 0.0-0.1 [facility] Comment on above: Performed By: #### C BC #### [facility] [address] [place] [address] Dr. Jeimy Tenorio Basophils/100 WBC (Bld) 0.6 % Normal 0.2-2.0 [facility] Comment on above: Performed By: #### C BC #### [facility] [address] [place] [address] Dr. Jeimy Tenorio EO # 0.4 103/ul Normal 0.0-0.7 [facility] Comment on above: Performed By: #### C BC #### [facility] [address] [place] [address] Dr. Jeimy Tenorio Eosinophils/100 WBC (Bld) 4.9 % Normal 0.9-7.0 [facility] Comment on above: Performed By: #### C BC #### [facility] [address] [place] [address] Dr. Jeimy Tenorio Erythrocyte distribution width (RBC) [Ratio] 13.1 % Normal 11.0-15.0 [facility] Comment on above: Performed By: #### C BC #### [facility] [address] [place] [address] Dr. Jeimy Tenorio Hematocrit (Bld) [Volume fraction] 38.1 % Critically low 42.0-54.0 [facility] Comment on above: Performed By: #### C BC #### [facility] [address] [place] [address] Dr. Jeimy Tenorio Hemoglobin (Bld) [Mass/Vol] 13.0 g/dL Critically low 14.0-18.0 [facility] Comment on above: Performed By: #### C BC #### [facility] [address] [place] [address] Dr. Jeimy Tenorio IG # 0.02 10e3/ul Normal 0.00-0.03 [facility] Comment on above: Performed By: #### C BC #### [facility] [address] [place] [address] Dr. Jeimy Tenorio IG % 0.3 % Normal 0.0-0.5 [facility] Comment on above: Performed By: #### C BC #### [facility] [address] [place] [address] Dr. Jeimy Tenorio LYMPH # 1.7 103/ul Normal 1.2-3.8 [facility] Comment on above: Performed By: #### C BC #### [facility] [address] [place] [address] Dr. Jeimy Tenorio Lymphocytes/100 WBC (Bld) 22.9 % Normal 20.5-60.0 [facility] Comment on above: Performed By: #### C BC #### [facility] [address] [place] [address] Dr. Jeimy Tenorio MANUAL DIFF REQ NO Normal [facility] Comment on above: Performed By: #### C BC #### [facility] [address] [place] [address] Dr. Jeimy Tenorio MCH (RBC) [Entitic mass] 33.5 pg Normal 25.9-34.0 [facility] Comment on above: Performed By: #### C BC #### [facility] [address] [place] [address] Dr. Jeimy Tenorio MCHC (RBC) [Mass/Vol] 34.1 g/dL Normal 29.9-35.2 [facility] Comment on above: Performed By: #### C BC #### [facility] [address] [place] [address] Dr. Jeimy Tenorio MCV (RBC) [Entitic vol] 98.2 fL Critically high 80.0-94.0 [facility] Comment on above: Performed By: #### C BC #### [facility] [address] [place] [address] Dr. Jeimy Tenorio MONO # 0.8 103/ul Normal 0.3-0.8 [facility] Comment on above: Performed By: #### C BC #### [facility] [address] [place] [address] Dr. Jeimy Tenorio Monocytes/100 WBC (Bld) 11.5 % Normal 1.7-12.0 [facility] Comment on above: Performed By: #### C BC #### [facility] [address] [place] [address] Dr. Jeimy Tenorio NEUT # 4.3 103/ul Normal 1.4-6.5 [facility] Comment on above: Performed By: #### C BC #### [facility] [address] [place] [address] Dr. Jeimy Tenorio Neutrophils/100 WBC (Bld) 59.8 % Normal 43.0-75.0 [facility] Comment on above: Performed By: #### C BC #### [facility] [address] [place] [address] Dr. Jeimy Tenorio Platelet mean volume (Bld) [Entitic vol] 9.8 fL Normal 9.5-13.5 [facility] Comment on above: Performed By: #### C BC #### [facility] [address] [address] [address] Jeimy Tenorio PLT 181 103/ul Normal 150-450 [facility] Comment on above: Performed By: #### C BC #### [facility] [address] [id number] [address] Jeimy Tenorio RBC 3.88 106/ul Critically low 4.70-6.10 [facility] Comment on above: Performed By: #### C BC #### [facility] [address] [address] [address] eJimy Tenorio WBC 7.2 103/ul Normal 4.0-11.0 [facility] Comment on above: Performed By: #### C BC #### [facility] [address] [place] [address] Dr. Jeimy Tenorio D-DIMERon 06-11-2022 D-DIMER 0.63 mg/L FEU Critically high <=0.[address] [facility] Comment on above: Performed By: #### D DIM #### [facility] [address] [place] [address] Dr. Jeimy Tenorio D-DIMER COMMENTS SEE BELOW Normal [facility] Comment on above: Result Comment: Incr [...] hospitalization. Performed By: #### D DIM #### [facility] [address] [place] [address] Dr. Jeimy Tenorio PROF 14(COMP METB)on 022 Albumin [Mass/Vol] 3.3 g/dL Critically low 3.4-5.[address] [facility] Comment on above: Performed By: #### C BC #### [facility] [address] [place] [address] Dr. Jeimy Tenorio Albumin/Globulin [Mass ratio] 0.8 {ratio} Normal [facility] Comment on above: Performed By: #### C BC #### [facility] [address] [address] [address] Jeimy Tenorio ALP [Catalytic activity/Vol] 160 U/L Critically high 46-116 [facility] Comment on above: Performed By: #### C BC #### [facility] [address] [place] [address] Dr. Jeimy Tenorio ALT [Catalytic activity/Vol] 26 U/L Normal 16-63 [facility] Comment on above: Performed By: #### C BC #### [facility] [address] [place] [address] Dr. Jeimy Tenorio Anion gap [Moles/Vol] 10.4 mmol/L Normal [facility] Comment on above: Performed By: #### C BC #### [facility] [address] [place] [address] Dr. Jeimy Tenorio AST [Catalytic activity/Vol] 16 U/L Normal 15-37 [facility] Comment on above: Performed By: #### C BC #### [facility] [address] [place] [address] Dr. Jeimy Tenorio Bilirubin [Mass/Vol] 0.2 mg/dL Normal 0.2-1.0 [facility] Comment on above: Performed By: #### C BC #### [facility] [address] [place] [address] Dr. Jeimy Tenorio Calcium [Mass/Vol] 8.2 mg/dL Critically low 8.5-10.[address] [facility] Comment on above: Performed By: #### C BC #### [facility] [address] [place] [address] Dr. Jeimy Tenorio Chloride [Moles/Vol] 105 mmol/L Normal 98-107 [facility] Comment on above: Performed By: #### C BC #### [facility] [address] [place] [address] Dr. Jeimy Tenorio CO2 [Moles/Vol] 26.5 mmol/L Normal 21.0-32.0 [facility] Comment on above: Performed By: #### C BC #### [facility] [address] [place] [address] Dr. Jeimy Tenorio Creatinine [Mass/Vol] 0.96 mg/dL Normal 0.70-1.30 [facility] Comment on above: Performed By: #### C BC #### [facility] [address] [place] [address] Dr. Jeimy Tenorio EGFR-AF PERUVIAN >60 Normal >=60 [facility] Comment on above: Performed By: #### C BC #### [facility] [address] [place] [address] Dr. Jeimy Tenorio EGFR-NON AF PERUVIAN >60 Normal >=60 [facility] Comment on above: Performed By: #### C BC #### [facility] [address] [place] [address] Dr. Jeimy Tenorio Globulin (S) [Mass/Vol] 4.0 g/dL Normal [facility] Comment on above: Performed By: #### C BC #### [facility] [address] [place] [address] Dr. Jeimy Tenorio Glucose [Mass/Vol] 140 mg/dL Critically high 74-106 [facility] Comment on above: Performed By: #### C BC #### [facility] [address] [place] [address] Dr. Jeimy Tenorio Potassium [Moles/Vol] 3.9 mmol/L Normal 3.5-5.1 [facility] Comment on above: Performed By: #### C BC #### [facility] [address] [place] [address] Dr. Jeimy Tenorio Protein [Mass/Vol] 7.3 g/dL Normal 6.4-8.2 [facility] Comment on above: Performed By: #### C BC #### [facility] [address] [place] [address] Dr. Jeimy Tenorio Sodium [Moles/Vol] 138 mmol/L Normal 136-145 [facility] Comment on above: Performed By: #### C BC #### [facility] [address] [place], [place] [address] Dr. Jeimy Tenorio Urea nitrogen [Mass/Vol] 15.0 mg/dL Normal 7.0-18.0 [facility] Comment on above: Performed By: #### C BC #### [facility] [address] [place], [place] [address] Dr. Jeimy Tenorio Urea nitrogen/Creatinine [Mass ratio] 15.6 mg/mg Normal [facility] Comment on above: Performed By: #### C BC #### [facility] [address] [place], [place] [address] Dr. Jeimy Tenorio [facility] 10-30-2021 Albumin [Mass/Vol] 4.3 g/dL Normal 3.6-5.1 [facility] Comment on above: Performed By: #### 7 , 7599, 98551 #### [facility] [place] [address] Stocklayer: Yash Campuzano MD Albumin/Globulin [Mass ratio] 1.3 {ratio} Normal 1.0-2.5 [facility] Comment on above: Performed By: #### 7 , 7599, 64822 #### [facility] [place] [address] Stocklayer: Yash Campuzano MD ALP [Catalytic activity/Vol] 152 U/L High 35-144 [facility] Comment on above: Performed By: #### 7 , 7599, 43494 #### [facility] [place] [address] Stocklayer: Yash Campuzano MD ALT [Catalytic activity/Vol] 30 U/L Normal 9-46 [facility] Comment on above: Performed By: #### 7 , 7599, 30552 #### [facility] [place] [address] Stocklayer: Yash Campuzano MD AST [Catalytic activity/Vol] 26 U/L Normal 10-35 [facility] Comment on above: Performed By: #### 7 13, 7600, 21534 #### [facility] [address] [address] Stocklayer: Yash Campuzano MD Bilirubin [Mass/Vol] 0.4 mg/dL Normal 0.2-1.2 [facility] Comment on above: Performed By: #### 7 13, 0, 50334 #### [facility] [place] [address] Stocklayer: Yash Campuzano MD BUN/CREATININE RATIO NOT APPLICABLE Normal 6-22 [facility] Comment on above: Performed By: #### 7 13, 0, 08368 #### [facility] [place] [address] Stocklayer: Yash Campuzano MD Calcium [Mass/Vol] 8.8 mg/dL Normal 8.6-10.3 [facility] Comment on above: Performed By: #### 7 13, 7599, 04216 #### [facility] [place] [address] Stocklayer: Yash Campuzano MD Chloride [Moles/Vol] 104 mmol/L Normal 98-110 [facility] Comment on above: Performed By: #### 7 13, 0, 87936 #### [facility] [place] [address] Stocklayer: Yash Campuzano MD CO2 [Moles/Vol] 25 mmol/L Normal 20-32 [facility] Comment on above: Performed By: #### 7 13, 7600, 36483 #### [facility] [place] [address] Stocklayer: Yash Campuzano MD Creatinine [Mass/Vol] 0.76 mg/dL Normal 0.70-1.[address] [facility] Comment on above: Result Comment: For patients >49 years of age, the reference limit for Creatinine is approximately 13% higher for people identified as -Congolese. Performed By: #### 7 13, 7599, 87246 #### [facility] [address], [address] [place] [address] Stocklayer: Yash Campuzano MD eGFR NON-AFR. PERUVIAN 95 mL/min/1.73m2 Normal > OR = 60 [facility] Comment on above: Performed By: #### 7 13, 0, 64045 #### [facility] [address], [address] [place] [address] Stocklayer: Yash Campuzano MD GFR/1.73 sq M.predicted among blacks MDRD (S/P/Bld) [Vol rate/Area] 110 mL/min/{1.73_m2} Normal > OR = 60 [facility] Comment on above: Performed By: #### 7 13, 7599, 75085 #### [facility] [address], [address] [place] [address] Stocklayer: Yash Campuzano MD Globulin (S) [Mass/Vol] 3.2 g/dL Normal 1.9-3.7 [facility] Comment on above: Performed By: #### 7 13, 7599, 45053 #### [facility] [address], [address] [place] [address] Stocklayer: Yash Campuzano MD Glucose [Mass/Vol] 103 mg/dL High 65-99 [facility] Comment on above: Result Comment: Fasting reference interval For someone without known diabetes, a glucose value between 100 and 125 mg/dL is consistent with prediabetes and should be confirmed with a follow-up test. Performed By: #### 7 13, 7599, 20520 #### [facility] [address], [address] [place] [address] Stocklayer: Yash Campuzano MD Potassium [Moles/Vol] 4.7 mmol/L Normal 3.5-5.[address] [facility] Comment on above: Performed By: #### 7 , 760, 29621 #### [facility] [address], [address] [place] [address] Stocklayer: Yash Campuzano MD Protein [Mass/Vol] 7.5 g/dL Normal 6.1-8.1 [facility] Comment on above: Performed By: #### 7 13, 0, 93871 #### [facility] [place] [address] Stocklayer: Yash Campuzano MD Sodium [Moles/Vol] 137 mmol/L Normal 135-146 [facility] Comment on above: Performed By: #### 7 13, 0, 41514 #### [facility] [address], [address] [place] [address] Stocklayer: Yash Campuzano MD Urea nitrogen [Mass/Vol] 15 mg/dL Normal 7-25 [facility] Comment on above: Performed By: #### 7 13, 7599, 61040 #### [facility] [place] [address] Stocklayer: Yash Campuzano MD LIPID PANEL, [place] [address] Cholesterol [Mass/Vol] 180 mg/dL Normal <200 [facility] Comment on above: Order Comment: FASTI NG:YES FASTING: YES Performed By: #### 7 13, 0, 90582 #### [facility] [place] [address] Stocklayer: Yash Campuzano MD Cholesterol in HDL [Mass/Vol] 50 mg/dL Normal > OR = 40 [facility] Comment on above: Order Comment: FASTI NG:YES FASTING: YES Performed By: #### 7 13, 7599, 81801 #### [facility] [place] [address] Stocklayer: Yash Campuzano MD Cholesterol in LDL [Mass/Vol] [...] LDL-C. Gennaro SS et al. KO. 2013;310(19): 6883-4700 (http://education.Brevado/faq/IVJ919) Performed By: #### 7 , 0, 10361 #### [facility] [address], [address] [place] [address] Stocklayer: Yash Campuzano MD Cholesterol.total/Cho lesterol in HDL [Mass ratio] 3.6 {ratio} Normal <5.0 [facility] Comment on above: Order Comment: FASTI NG:YES FASTING: YES Performed By: #### 7 , 7599, 27847 #### [facility] [address], [address] [place] [address] Stocklayer: Yash Campuzano MD NON HDL CHOLESTEROL 130 mg/dL (calc) High <130 [facility] Comment on above: Order Comment: FASTI NG:YES FASTING: YES Result Comment: For patients with diabetes plus 1 major ASCVD risk factor, treating to a non-HDL-C goal of <100 mg/dL (LDL-C of <70 mg/dL) is considered a therapeutic option. Performed By: #### 7 , 7599, 80507 #### [facility] [place] [address] Stocklayer: Ysah Campuzano MD Triglyceride [Mass/Vol] 280 mg/dL High <150 [facility] Comment on above: Order Comment: FASTI NG:YES FASTING: YES Result Comment: If a non-fasting specimen was collected, consider repeat triglyceride testing on a fasting specimen if clinically indicated. Marquise et al. J. of Clin. Lipidol. 2015;9:129-169. Performed By: #### 7 , 7599, 05913 #### [facility] [address], [address] [place] [address] Stocklayer: Yash Campuzano MD PHENYTOINon 10-30-2021 Phenytoin [Mass/Vol] 18.9 ug/mL Normal 10.0-20.0 [facility] Comment on above: Performed By: #### 7 13, 7600, 07601 #### [facility] of [place] [address] Stocklayer: Yash Campuzano MD CBC (INCLUDES DIFF/PLT)on Basophils (Bld) [#/Vol] 0.071 10*3/uL Normal 0-200 [facility] Comment on above: Performed By: #### 7 13, 7599, 6399 #### [facility] of [address], [address] [place] [address] Stocklayer: Yash Campuzano MD Basophils/100 WBC (Bld) 1.2 % Normal [facility] Comment on above: Performed By: #### 7 13, 7599, 6399 #### [facility] of [place] [address] Stocklayer: Yash Campuzano MD Eosinophils (Bld) [#/Vol] 0.277 10*3/uL Normal 15-500 [facility] Comment on above: Performed By: #### 7 13, 7599, 6399 #### [facility] [place] [address] Stocklayer: Yash Campuzano MD Eosinophils/100 WBC (Bld) 4.7 % Normal [facility] Comment on above: Performed By: #### 7 13, 7599, 6399 #### [facility] of [place] [address] Stocklayer: Yash Campuzano MD Erythrocyte distribution width (RBC) [Ratio] 12.8 % Normal 11.0-15.0 [facility] Comment on above: Performed By: #### 7 13, 760, 6399 #### [facility] of [place] [address] Stocklayer: Yash Campuzano MD Hematocrit (Bld) [Volume fraction] 42.1 % Normal 38.5-50.0 [facility] Comment on above: Performed By: #### 7 13, 760, 6399 #### [facility] of [address], [address] [place] [address] Stocklayer: Yash Campuzano MD Hemoglobin (Bld) [Mass/Vol] 14.9 g/dL Normal 13.2-17.1 [facility] Comment on above: Performed By: #### 7 , 7599, 6399 #### [facility] of [address], [address] [place] [address] Stocklayer: Yash Campuzano MD Lymphocytes (Bld) [#/Vol] 1.068 10*3/uL Normal 850-3900 [facility] Comment on above: Performed By: #### 7 , 7599, 6399 #### [facility] of [place] [address] Stocklayer: Yash Campuzano MD Lymphocytes/100 WBC (Bld) 18.1 % Normal [facility] Comment on above: Performed By: #### 7 , 7599, 6399 #### [facility] of [place] [address] Stocklayer: Yash Campuzano MD MCH (RBC) [Entitic mass] 32.9 pg Normal 27.0-33.0 [facility] Comment on above: Performed By: #### 7 , 7599, 6399 #### [facility] of [place] [address] Stocklayer: Yash Campuzano MD MCHC (RBC) [Mass/Vol] 35.4 g/dL Normal 32.0-36.[address] [facility] Comment on above: Performed By: #### 7 , 7599, 6399 #### [facility] of [place] [address] Stocklayer: Yash Campuzano MD MCV (RBC) [Entitic vol] 92.9 fL Normal 80.0-100.0 [facility] Comment on above: Performed By: #### 7 , 7599, 6399 #### [facility] of [address], [address] [place] [address] Stocklayer: Yash Campuzano MD Monocytes (Bld) [#/Vol] 0.531 10*3/uL Normal 200-950 [facility] Comment on above: Performed By: #### 7 13, 7599, 6399 #### [facility] of [address], [address] [place] [address] Stocklayer: Yash Campuzano MD Monocytes/100 WBC (Bld) 9.0 % Normal [facility] Comment on above: Performed By: #### 7 13, 7599, 6399 #### [facility] of [place] [address] Stocklayer: Yash Campuzano MD Neutrophils (Bld) [#/Vol] 3.953 10*3/uL Normal 1762-2260 [facility] Comment on above: Performed By: #### 7 13, 7599, 6399 #### [facility] of [address], [address] [place] [address] Stocklayer: Yash Campuzano MD Neutrophils/100 WBC (Bld) 67 % Normal [facility] Comment on above: Performed By: #### 7 13, 7599, 6399 #### [facility] of [place] [address] Stocklayer: Yash Campuzano MD Platelet mean volume (Bld) [Entitic vol] 11.0 fL Normal 7.5-12.5 [facility] Comment on above: Performed By: #### 7 13, 7599, 6399 #### [facility] of [place] [address] Stocklayer: Yash Campuzano MD Platelets (Bld) [#/Vol] 200 10*3/uL Normal 140-400 [facility] Comment on above: Performed By: #### 7 13, 760, 6399 #### [facility] of [place] [address] Stocklayer: Yash Campuzano MD RBC (Bld) [#/Vol] 4.53 10*6/uL Normal 4.20-5.80 [facility] Comment on above: Performed By: #### 7 13, 7600, 6399 #### [facility] [address], [address] [place] [address] Stocklayer: Yash Campuzano MD WBC (Bld) [#/Vol] 5.9 10*3/uL Normal 3.8-10.8 [facility] Comment on above: Performed By: #### 7 13, 7600, 6399 #### [facility] [address], [address] [place] [address] Stocklayer: Yash Campuzano MD LIPID PANEL, [address] Cholesterol [Mass/Vol] 218 mg/dL High <200 [facility] Comment on above: Order Comment: FASTI NG:YES FASTING: YES Performed By: #### 7 13, 7600, 6399 #### [facility] [place] [address] Stocklayer: Yash Campuzano MD Cholesterol in HDL [Mass/Vol] 55 mg/dL Normal > OR = 40 [facility] Comment on above: Order Comment: FASTI NG:YES FASTING: YES Performed By: #### 7 13, 7600, 6399 #### [facility] [place] [address] Stocklayer: Yash Campuzano MD Cholesterol in LDL [Mass/Vol] [...] LDL-C. Gennaro ALMANZAR et al. KO. 2013;310(19): 8826-8368 (http://education.[employer].GiveSurance/faq/NVT118) Performed By: #### 7 13, 7600, 6399 #### [facility] [address], [address] [place] [address] Stocklayer: Yash Campuzano MD Cholesterol.total/Cho lesterol in HDL [Mass ratio] 4.0 {ratio} Normal <5.0 [facility] Comment on above: Order Comment: FASTI NG:YES FASTING: YES Performed By: #### 7 , 303, 4218 #### [facility] [place] [address] Stocklayer: Yash Campuzano MD NON HDL CHOLESTEROL 163 mg/dL (calc) High <130 [facility] Comment on above: Order Comment: FASTI NG:YES FASTING: YES Result Comment: For patients with diabetes plus 1 major ASCVD risk factor, treating to a non-HDL-C goal of <100 mg/dL (LDL-C of <70 mg/dL) is considered a therapeutic option. Performed By: #### 7 524, 3914 #### [facility] [place] [address] Stocklayer: Yash Campuzano MD Triglyceride [Mass/Vol] 200 mg/dL High <150 [facility] Comment on above: Order Comment: FASTI NG:YES FASTING: YES Result Comment: If a non-fasting specimen was collected, consider repeat triglyceride testing on a fasting specimen if clinically indicated. Marquise et al. J. of Clin. Lipidol. 2015;9:129-169. Performed By: #### 7 , 526, 3078 #### [facility] [place] [address] Stocklayer: Yash Campuzano MD PHENYTOINon 04-18-2021 Phenytoin [Mass/Vol] 25.0 ug/mL High 10.0-20.0 [facility] Comment on above: Performed By: #### 7 , 597, 9397 #### [facility] [place] [address] Stocklayer: Yash Campuzano MD APTTon 11-20-2020 aPTT Coag (Bld) [Time] 33.4 s Normal 25.0-35.0 [facility] Comment on above: Result Comment: [...] THIS PURPOSE. Performed By: #### 5 6101, 98796 ####[facility] BNP EDon 11-20-2020 Natriuretic peptide B (Bld) [Mass/Vol] 111 pg/mL High 0-100 [facility] Comment on above: Result Comment: Give n the appropriate clinical setting a BNP result of >100 pg/mL indicates congestive heart failure. Performed By: #### 3 0935 #### [facility] [address] CBC W/DIFFon 11-20-2020 ABS IMM GRANS 0.0 10*3/uL Normal 0.0-0.2 [facility] Comment on above: Performed By: #### 5 0103 ####[facility] ABS NEUTROPHILS 3.9 10*3/uL Normal 1.6-7.6 [facility] Comment on above: Performed By: #### 5 0103 ####[facility] Basophils (Bld) [#/Vol] 0.1 10*3/uL Normal 0.0-0.2 [facility] Comment on above: Performed By: #### 5 0103 ####[facility] Basophils/100 WBC (Bld) 1.0 % Normal 0.0-1.0 [facility] Comment on above: Performed By: #### 5 0103 ####[facility]3000 [facility].[address] Eosinophils (Bld) [#/Vol] 0.3 10*3/uL Normal 0.0-0.5 [facility] Comment on above: Performed By: #### 5 0103 ####[facility]3000 [facility].[address] Eosinophils/100 WBC (Bld) 5.1 % Normal 0.0-6.0 [facility] Comment on above: Performed By: #### 5 0103 ####[facility]3000 [facility].[address] Erythrocyte distribution width (RBC) [Ratio] 13.1 % Normal 11.5-15.0 [facility] Comment on above: Performed By: #### 5 3 ####[facility]3000 [facility].[address] Hematocrit (Bld) [Volume fraction] 45.4 % Normal 39.0-50.0 [facility] Comment on above: Performed By: #### 5 0103 ####[facility]3000 [facility].[address] Hemoglobin (Bld) [Mass/Vol] 14.8 g/dL Normal 13.0-17.0 [facility] Comment on above: Performed By: #### 5 0103 ####[facility] IMMATURE GRANS 0.3 % Normal 0.0-1.0 [facility] Comment on above: Performed By: #### 5 0103 ####[facility] [place] [address].[address] Lymphocytes (Bld) [#/Vol] 1.0 10*3/uL Low 1.2-4.0 [facility] Comment on above: Performed By: #### 5 0103 ####[facility]3000 [facility] [place] [address], [facility] Lymphocytes/100 WBC (Bld) 17.5 % Low 20.0-45.0 [facility] Comment on above: Performed By: #### 5 3 ####[facility]3000 [facility] [place] [address], [facility] MCH (RBC) [Entitic mass] 32.5 pg Normal 27.0-33.0 [facility] Comment on above: Performed By: #### 5 3 ####[facility]3000 [facility].[address] MCHC (RBC) [Mass/Vol] 32.6 g/dL Normal 32.0-35.0 [facility] Comment on above: Performed By: #### 5 3 ####[facility]3000 [facility].[address] MCV (RBC) [Entitic vol] 99.6 fL High 82.0-98.0 [facility] Comment on above: Performed By: #### 5 0103 ####[facility]3000 [facility] [place] [address], [facility] Monocytes (Bld) [#/Vol] 0.6 10*3/uL Normal 0.1-1.0 [facility] Comment on above: Performed By: #### 5 0103 ####[facility]3000 [facility] [place] [address], [facility] MONOS 9.4 % Normal 5.0-12.0 [facility] Comment on above: Performed By: #### 5 3 ####[facility]3000 [facility] [place] [address], [facility] Neutrophils/100 WBC (Bld) 66.7 % Normal 40.0-72.0 [facility] Comment on above: Performed By: #### 5 0103 ####[facility]3000 [facility] [place] [address], [facility] Nucleated RBC/100 WBC (Bld) [Ratio] 0 % Normal 0-0 [facility] Comment on above: Performed By: #### 5 102 ####[facility]3000 [facility] [place] [address], [facility] PLAT CNT 175 10*3/uL Normal 150-400 [facility] Comment on above: Performed By: #### 5 0103 ####[facility]3000 [facility] [place] [address], [facility] RBC (Bld) [#/Vol] 4.56 10*6/uL Normal 4.20-5.70 [facility] Comment on above: Performed By: #### 5 102 ####[facility] [place] [address], [facility] WBC (Bld) [#/Vol] 5.88 10*3/uL Normal 4.00-10.60 [facility] Comment on above: Performed By: #### 5 3 ####[facility]3000 [facility].[address] COMP METABOLIC PANELon 11-20 Albumin [Mass/Vol] 4.0 g/dL Normal 3.5-5.7 [facility] Comment on above: Performed By: #### 0 0121, 36944, 32026, 11274 #### [facility] [address] [place] [address], [facility] ALKALINE PHOSPH 130 IU/L High 34-104 [facility] Comment on above: Performed By: #### 0 0121, 95412, 25055, 30812 #### [facility] [address] [place] [address], [facility] ALT [Catalytic activity/Vol] 18 U/L Normal 7-52 [facility] Comment on above: Performed By: #### 0 0121, 87864, 67520, 33281 #### [facility] [address] [place] [address], [place] AST [Catalytic activity/Vol] 19 U/L Normal 13-39 [facility] Comment on above: Performed By: #### 0 0121, 24703, 69957, 00326 #### [facility] [address] [place] [address], [place] Bilirubin [Mass/Vol] 0.4 mg/dL Normal 0.3-1.0 [facility] Comment on above: Performed By: #### 0 0121, 24428, 06191, 97645 #### [facility] [address] [place] [address], [place] Calcium [Mass/Vol] 9.0 mg/dL Normal 8.6-10.3 [facility] Comment on above: Performed By: #### 0 0121, 91445, 67561, 38053 #### [facility] [address] [place] [address], [place] Chloride [Moles/Vol] 103 mmol/L Normal 98-107 [facility] Comment on above: Performed By: #### 0 0121, 84233, 48637, 53242 #### [facility] [address] [place] [address], [place] CO2 [Moles/Vol] 28 mmol/L Normal 21-31 [facility] Comment on above: Performed By: #### 0 0121, 97302, 12915, 69413 #### [facility] [address] [place] [address], [place] Creatinine [Mass/Vol] 0.77 mg/dL Normal 0.70-1.30 [facility] Comment on above: Performed By: #### 0 0121, 98490, 55133, 38820 #### [facility] [address] [place] [address], [place] GFR/1.73 sq M.predicted among blacks MDRD (S/P/Bld) [Vol rate/Area] mL/min/{1.73_m2} Normal >60 [facility] Comment on above: Performed By: #### 0 0121, 54692, 55754, 54050 #### [facility] [address] [place] [address], [place] GFR/1.73 sq M.predicted among non-blacks MDRD (S/P/Bld) [Vol rate/Area] mL/min/{1.73_m2} Normal >60 [facility] Comment on above: Performed By: #### 0 0121, 22379, 65165, 43278 #### [facility] [address] [place] [address], [place] Glucose [Mass/Vol] 88 mg/dL Normal 70-100 [facility] Comment on above: Performed By: #### 0 0121, 52729, 13584, 32895 #### [facility] [address] [place] [address], [place] Potassium [Moles/Vol] 4.9 mmol/L Normal 3.5-5.1 [facility] Comment on above: Performed By: #### 0 0121, 46782, 57586, 80235 #### [facility] [address] [place] [address], [place] Protein [Mass/Vol] 7.3 g/dL Normal 6.0-8.3 [facility] Comment on above: Performed By: #### 0 0121, 22511, 68522, 01436 #### [facility] [address] [place] [address], [place] Sodium [Moles/Vol] 138 mmol/L Normal 136-145 [facility] Comment on above: Performed By: #### 0 0121, 16164, 10900, 71922 #### [facility] [address] [place] [address], [place] Urea nitrogen [Mass/Vol] 15 mg/dL Normal 7-25 [facility] Comment on above: Performed By: #### 0 0121, 81430, 53840, 43728 #### [place] [id number], [facility] CTA HEADon 11-20-2020 CTA HEAD [facility] Department of Radiology [address] [place] [address] ======== Patient Name: NAZARIO CORTES : 1955 Sex: M Age: Race: White Pt. Location: [facility] Patient Status: E Ordered Date: 11/20/2020 11:20:00 [...] stenosis of the major vessels of the [place]. origin of bilateral posterior cerebral arteries. IMPRESSION: Normal CTA of the brain. All CT scans at this facility use dose modulation, iterative reconstruction, and/or weight based dosing when appropriate to reduce radiation dose to as low as reasonably achievable. Electronically signed: Dhaval Ghotra. Transcribed by: [email or web address], User Resident: Electronically Signed by: DHAVAL GHOTRA @ 11/20/2020 12:58 PM Normal [facility] Comment on above: Order Comment: Bleed CTA NECKon 11-20-2020 CTA NECK [facility] Department of Radiology [address] [place] [id number] ======== Patient Name: NAZARIO CORTES : 1955 Sex: M Age: Race: White Pt. Location: [facility] Patient Status: E Ordered Date: 11/20/2020 11:20:00 [...] viewed on a separate workstation. The [place] Symptomatic Carotid Endarterectomy Trial (NASCET) method for [...] achievable Electronically signed: Dhaval Ghotra. Transcribed by: [email or web address], User Resident: Electronically Signed by: DHAVAL GHOTRA @ 11/20/2020 12:57 PM Normal [facility] DIRECT BILIon 11-20-2020 Bilirubin.direct [Mass/Vol] 0.1 mg/dL Normal 0.0-0.2 [facility] Comment on above: Order Comment: Liver Battery conflicts with Comprehensive Metabolic Panel. Liver Battery canceled and Direct Bilirubin added. Performed By: #### 0 0121, 45314, 16122, 71707 #### [facility] [address] [place] [address], [facility] LIPASE BLOODon 11-20-2020 LIPASE 27 Units/L Normal 11-82 [facility] Comment on above: Performed By: #### 0 0121, 93837, 36371, 13852 #### [facility] [address] [place] [address], [facility] POC SARS COV2 ANTIGEN NEGATI VEon 11-20-2020 POC SARS COV2 ANTIGEN N Negative Normal NEGATIVE [facility] Comment on above: Result Comment: Test performed on [employer] System for rapid detection of SARS-CoV-2. Negative [...] management. Performed By: #### 3 1919 #### [place] [address], [facility] PORTABLE CHEST 1 VIEWon 10-23 PORTABLE CHEST 1 VIEW [facility] Department of Radiology [address] [place] [id number] ======== Patient Name: NAZARIO CORTES : 1955 Sex: M Age: Race: White Pt. Location: [facility] Patient Status: E Ordered Date: 11/20/2020 11:20:00 [...] hilum. Approved by:Jessenia Arceo11/20/2020 11:52 AM. I, hDaval Ghotra,have reviewed the images and reports Electronically signed: Dhaval Ghotra. Transcribed by: [email or web address], User Resident: JESSENIA ALFORD Electronically Signed by: DHAVAL GHOTRA @ 11/20/2020 12:32 PM I personally read this/these film(s) with this resident Normal [facility] Comment on above: Order Comment: evalu ate for Pneumonia PROTHROMBIN TIMEon 0 INR Coag (PPP) [Relative time] 0.95 {INR} Normal 0.91-1.16 [facility] Comment on above: Result Comment: [...] CHEST 1995;108:[id number]. Performed By: #### 5 [id number], [id number] ####[facility] SORIAN[address] PT Coag (PPP) [Time] 12.7 s Normal 12.3-14.8 [facility] Comment on above: Result Comment: ALL RESULTS MUST BE INTERPRETED WITH RESPECT TO BLOOD DRAWING ARTIFACT OR DILUTION ERROR OF ANTICOAGULANT AT THE TIME OF SAMPLING. Performed By: #### 5 [id number], [id number] ####[facility] TROPONIN-Ion 11-20-2020 Troponin I.cardiac [Mass/Vol] 0.00 ng/mL Normal 0.00-0.04 [facility] Comment on above: Order Comment: No: D o not add to previous draw Result Comment: REFE RENCE RANGES: 0.00 - 0.14 ng/ml NEGATIVE 0.15 - 0.25 ng/ml INDETERMINATE > 0.25 ng/ml INDICATIVE OF AN M.I. Performed By: #### 3 [id number] #### [facility] [address] [place] [address], [facility] Troponin I.cardiac [Mass/Vol] 0.00 ng/mL Normal 0.00-0.04 [facility] Comment on above: Result Comment: REFE RENCE RANGES: 0.00 - 0.14 ng/ml NEGATIVE 0.15 - 0.25 ng/ml INDETERMINATE > 0.25 ng/ml INDICATIVE OF AN M.I. Performed By: #### 0 [id number], [id number], [id number], [id number] #### [facility] [address] Vital Signs Date Time Vital Sign Value Performing Clinician Facility 02-20-2025 13:33-0400 Body height 185.4 cm Jignesh Gonsalez MD Work Phone: [facility] 02-20-2025 13:33-0400 Body mass index (BMI) [Ratio] 40.77 kg/m2 Jignesh Gonsalez MD Work Phone: [facility] 02-20-2025 13:33-0400 Body temperature 96.6 [degF] Jignesh Gonsalez MD Work Phone: [facility] 02-20-2025 13:33-0400 Body weight 140.16 kg Jignesh Gonsalez MD Work Phone: [facility] 02-20-2025 13:33-0400 Diastolic blood pressure 76 mm[Hg] Jignesh Gonsalez MD Work Phone: [facility] 02-20-2025 13:33-0400 Heart rate 85 /min Jignesh Gonsalez MD Work Phone: [facility] 02-20-2025 13:33-0400 Respiratory rate 22 /min Jignesh Gonsalez MD Work Phone: [facility] 02-20-2025 13:33-0400 SaO2% (BldA) [Mass fraction] 92 % Jignesh Gonsalez MD Work Phone: [facility] 02-20-2025 13:33-0400 Systolic blood pressure 154 mm[Hg] Jignesh Gonsalez MD Work Phone: [facility] 01-21-2025 13:40-0500 Body height 185.4 cm Jignesh Gonsalez MD Work Phone: [facility] 01-21-2025 13:40-0500 Body mass index (BMI) [Ratio] 41.03 kg/m2 Jignesh Gonsalez MD Work Phone: [facility] 01-21-2025 13:40-0500 Body temperature 97.5 [degF] Jignesh Gonsalez MD Work Phone: [facility] 01-21-2025 13:40-0500 Body weight 141.07 kg Jignesh Gonsalez MD Work Phone: [facility] 01-21-2025 13:40-0500 Diastolic blood pressure 64 mm[Hg] Jignesh Gonsalez MD Work Phone: [facility] 01-21-2025 13:40-0500 Heart rate 87 /min Jignesh Gonsalez MD Work Phone: [facility] 01-21-2025 13:40-0500 Respiratory rate 20 /min Jignesh Gonsalez MD Work Phone: [facility] 01-21-2025 13:40-0500 SaO2% (BldA) [Mass fraction] 91 % Jignesh Gonsalez MD Work Phone: [facility] 01-21-2025 13:40-0500 Systolic blood pressure 130 mm[Hg] Jignesh Gonsalez MD Work Phone: [facility] 12-19-2024 13:35-0500 Body height 185.4 cm Amrik Pérez MD Work Phone: [facility] 12-19-2024 13:35-0500 Body mass index (BMI) [Ratio] 40.37 kg/m2 Amrik Pérez MD Work Phone: [facility] 12-19-2024 13:35-0500 Body weight 138.8 kg Amrik Pérez MD Work Phone: [facility] 12-19-2024 13:35-0500 Diastolic blood pressure 64 mm[Hg] Amrik Pérez MD Work Phone: [facility] 12-19-2024 13:35-0500 Heart rate 80 /min Amrik Pérez MD Work Phone: [facility] 12-19-2024 13:35-0500 Systolic blood pressure 112 mm[Hg] Amrik Pérez MD Work Phone: [facility] 11-22-2024 15:42-0500 Body height 185.4 cm Jignesh Gonsalez MD Work Phone: [facility] 11-22-2024 15:42-0500 Body mass index (BMI) [Ratio] 41.16 kg/m2 Jignesh Gonsalez MD Work Phone: [facility] 11-22-2024 15:42-0500 Body temperature 97.5 [degF] Jignesh Gonsalez MD Work Phone: [facility] 11-22-2024 15:42-0500 Body weight 141.52 kg Jignesh Gonsalez MD Work Phone: [facility] 11-22-2024 15:42-0500 Diastolic blood pressure 66 mm[Hg] Jignesh Gonsalez MD Work Phone: [facility] 11-22-2024 15:42-0500 Heart rate 33 /min Jignesh Gonsalez MD Work Phone: [facility] 11-22-2024 15:42-0500 Respiratory rate 20 /min Jignesh Gonsalez MD Work Phone: [facility] 11-22-2024 15:42-0500 SaO2% (BldA) [Mass fraction] 89 % Jignesh Gonsalez MD Work Phone: [facility] 11-22-2024 15:42-0500 Systolic blood pressure 148 mm[Hg] Jignesh Gonsalez MD Work Phone: [facility] 10-25-2024 15:32-0500 Body height 185.4 cm Jignesh Gonsalez MD Work Phone: [facility] 10-25-2024 15:32-0500 Body mass index (BMI) [Ratio] 40.9 kg/m2 Jignesh Gonsalez MD Work Phone: [facility] 10-25-2024 15:32-0500 Body temperature 97.5 [degF] Jignesh Gonsalez MD Work Phone: [facility] 10-25-2024 15:32-0500 Body weight 140.62 kg Jignesh Gonsalez MD Work Phone: [facility] 10-25-2024 15:32-0500 Diastolic blood pressure 70 mm[Hg] Jignesh Gonsalez MD Work Phone: [facility] 10-25-2024 15:32-0500 Heart rate 87 /min Jignesh Gonsalez MD Work Phone: [facility] 10-25-2024 15:32-0500 Respiratory rate 22 /min Jignesh Gonsalez MD Work Phone: [facility] 10-25-2024 15:32-0500 SaO2% (BldA) [Mass fraction] 90 % Jignesh Gonsalez MD Work Phone: [facility] 10-25-2024 15:32-0500 Systolic blood pressure 150 mm[Hg] Jignesh Gonsalez MD Work Phone: [facility] 09-07-2024 14:54-0400 Body height 185.42 cm MD Jignesh Gonsalez Work Phone: [facility] 09-07-2024 14:54-0400 Body mass index (BMI) [Ratio] 39.2 kg/m2 MD Jignesh Gonsalez Work Phone: [facility] 09-07-2024 14:54-0400 Body temperature 96.8 [degF] MD Jignesh Gonsalez Work Phone: [facility] 09-07-2024 14:54-0400 Body weight 134.94 kg MD Jignesh Gonsalez Work Phone: [facility] 09-07-2024 14:54-0400 Diastolic blood pressure 78 mm[Hg] MD Jignesh Gonsalez Work Phone: [facility] 09-07-2024 14:54-0400 Heart rate 93 /min MD Jignesh Gonsalez Work Phone: [facility] 09-07-2024 14:54-0400 Respiratory rate 20 /min MD Jignesh Gonsalez Work Phone: [facility] 09-07-2024 14:54-0400 SaO2% (BldA) [Mass fraction] 94 % MD Jignesh Gonsalez Work Phone: [facility] 09-07-2024 14:54-0400 Systolic blood pressure 119 mm[Hg] MD Jignesh Gonsalez Work Phone: [facility] 08-16-2024 10:34-0400 Body height 185.42 cm [facility] 08-16-2024 10:34-0400 Body mass index (BMI) [Ratio] 39 kg/m2 [facility] 08-16-2024 10:34-0400 Body temperature 96.8 [degF] [facility] 08-16-2024 10:34-0400 Body weight 134.26 kg [facility] 08-16-2024 10:34-0400 Diastolic blood pressure 77 mm[Hg] [facility] 08-16-2024 10:34-0400 Heart rate 73 /min [facility] 08-16-2024 10:34-0400 Respiratory rate 18 /min [facility] 08-16-2024 10:34-0400 SaO2% (BldA) [Mass fraction] 96 % [facility] 08-16-2024 10:34-0400 Systolic blood pressure 125 mm[Hg] [facility] 08-09-2024 13:10-0400 Body height 185.42 cm MD Jignesh Gonsalez Work Phone: [facility] 08-09-2024 13:10-0400 Body mass index (BMI) [Ratio] 39 kg/m2 MD Jignesh Gonsalez Work Phone: [facility] 08-09-2024 13:10-0400 Body temperature 98.5 [degF] MD Jignesh Gonsalez Work Phone: [facility] 08-09-2024 13:10-0400 Body weight 134.26 kg MD Jignesh Gonsalez Work Phone: [facility] 08-09-2024 13:10-0400 Diastolic blood pressure 64 mm[Hg] MD Jignesh Gonsalez Work Phone: [facility] 08-09-2024 13:10-0400 Heart rate 75 /min MD Jignesh Gonsalez Work Phone: [facility] 08-09-2024 13:10-0400 Respiratory rate 18 /min MD Jignesh Gonsalez Work Phone: [facility] 08-09-2024 13:10-0400 SaO2% (BldA) [Mass fraction] 93 % MD Jignesh Gonsalez Work Phone: [facility] 08-09-2024 13:10-0400 Systolic blood pressure 98 mm[Hg] MD Jignesh Gonsalez Work Phone: [facility] 05-15-2024 15:36-0400 Body height 185.42 cm MD Jignesh Gonsalez Work Phone: [facility] 05-15-2024 15:36-0400 Body mass index (BMI) [Ratio] 36.9 kg/m2 MD Jignesh Gonsalez Work Phone: [facility] 05-15-2024 15:36-0400 Body temperature 97.5 [degF] MD Jignesh Gonsalez Work Phone: [facility] 05-15-2024 15:36-0400 Body weight 127 kg MD Jignesh Gonsalez Work Phone: [facility] 05-15-2024 15:36-0400 Diastolic blood pressure 74 mm[Hg] MD Jignesh Gonsalez Work Phone: [facility] 05-15-2024 15:36-0400 Heart rate 81 /min MD Jignesh Gonsalez Work Phone: [facility] 05-15-2024 15:36-0400 Respiratory rate 18 /min MD Jignesh Gonsalez Work Phone: [facility] 05-15-2024 15:36-0400 SaO2% (BldA) [Mass fraction] 93 % MD Jignesh Gonsalez Work Phone: [facility] 05-15-2024 15:36-0400 Systolic blood pressure 119 mm[Hg] MD Jignesh Gonsalez Work Phone: [facility] 04-23-2024 13:06-0400 Body height 185.42 cm [facility] 04-23-2024 13:06-0400 Body mass index (BMI) [Ratio] 36.9 kg/m2 [facility] 04-23-2024 13:06-0400 Body temperature 97.3 [degF] [facility] 04-23-2024 13:06-0400 Body weight 127 kg [facility] 04-23-2024 13:06-0400 Diastolic blood pressure 56 mm[Hg] [facility] 04-23-2024 13:06-0400 Heart rate 80 /min [facility] 04-23-2024 13:06-0400 Respiratory rate 18 /min [facility] 04-23-2024 13:06-0400 SaO2% (BldA) [Mass fraction] 97 % [facility] 04-23-2024 13:06-0400 Systolic blood pressure 106 mm[Hg] [facility] 07-05-2023 10:00-0400 Body height 185.42 cm Luiz Riggs Other [facility] [employer] Other 07-05-2023 10:00-0400 Body mass index (BMI) [Ratio] 37.86 kg/m2 Luiz Riggs Other [facility] [employer] Other 07-05-2023 10:00-0400 Body weight 130.18 kg Luiz Riggs Other [employer] Other 07-05-2023 10:00-0400 Diastolic blood pressure 76 mm[Hg] Luiz Riggs Other [employer] Other 07-05-2023 10:00-0400 Systolic blood pressure 126 mm[Hg] Luiz Riggs Other [employer] Other 04-06-2022 17:40-0400 Body height 185.42 cm Neelam Morris Other [employer] Other 04-06-2022 17:40-0400 Body mass index (BMI) [Ratio] 36.15 kg/m2 Neelam Morris Other [employer] Other 04-06-2022 17:40-0400 Body temperature 98 [degF] Neelam Morris Other [employer] Other 04-06-2022 17:40-0400 Body weight 124.29 kg Neelam Morris Other [employer] Other 04-06-2022 17:40-0400 Diastolic blood pressure 69 mm[Hg] Neelam Morris Other [employer] Other 04-06-2022 17:40-0400 Respiratory rate 18 /min Neelam Morris Other [employer] Other 04-06-2022 17:40-0400 SaO2% (BldA) [Mass fraction] 95 % Neelam Morris Other [employer] Other 04-06-2022 17:40-0400 Systolic blood pressure 123 mm[Hg] Neelam Morris Other [employer] Other 12-28-2021 17:00-0500 Body height 185.42 cm Alex Elspiper Other [employer] Other 12-28-2021 17:00-0500 Body mass index (BMI) [Ratio] 37.47 kg/m2 Alex Bonilla Other [employer] Other 12-28-2021 17:00-0500 Body weight 128.82 kg Alex Bonilla Other [employer] Other Encounters Encounter Date Encounter Type Care [...] stenosis Start: 01-22-2025 End: 01-22-2025 ambulatory [facility] Start: 01-21-2025 End: 01-21-2025 Bamboo flowsheet Jignesh Gonsalez MD Work Phone: [facility] Start: 01-21-2025 End: 01-21-2025 Bamboo flowsheet Jignesh Gonsalez MD Work Phone: [facility] Start: 01-21-2025 End: 01-21-2025 Office outpatient visit 15 minutes Jignesh Gonsalez MD Work Phone: [facility] Comment on above: Coronary artery dise ase involving [place] coronary artery of [place] heart without angina pectoris (CMS/HCC) (Primary Dx); SOB (shortness of breath) on exertion Start: 01-21-2025 End: 01-21-2025 ambulatory JIGNESH GONSALEZ Not Available Start: 01-12-2025 Evaluation and manag ement of inpatient [facility] Start: 01-11-2025 Evaluation and manag ement of inpatient [facility] Start: 01-11-2025 Evaluation and manag ement of inpatient [facility] Start: 01-11-2025 End: 01-13-2025 Evaluation and management of inpatient [facility] Start: 12-19-2024 End: 12-19-2024 Roxy Pérez MD [...] Refill Jignesh Gonsalez MD Work Phone: [facility] Comment on above: Seizure disorder (CM S/HCC) Start: 11-27-2024 End: 11-28-2024 Orders Only Jignesh Gonsalez MD Work Phone: [facility] Comment on above: Deviated nasal septu [...] 10-30-2024 End: 10-30-2024 Clinical Support Chari Vela [facility] Work Phone: [facility] Comment on [...] 10-17-2024 End: 10-17-2024 ambulatory Yancy Lawson Facility:[facility] Start: 10-11-2024 End: 10-11-2024 Refill Jignesh Gonsalez MD Work Phone: [facility] Comment on above: Degenerative lumbar spinal stenosis Start: 09-25-2024 End: 09-25-2024 Refill Jignesh Gonsalez MD Work Phone: [facility] Comment on above: Seizure disorder (CM S/HCC) Start: 09-07-2024 End: 09-07-2024 ambulatory MD Jignesh Gonsalez Work Phone: [facility] Work Phone: Start: 09-07-2024 End: 09-07-2024 Patient encounter procedure MD Jignesh Gonsalez Work Phone: [facility] [place] Work Phone: Start: 08-16-2024 End: 08-16-2024 ambulatory [facility] Work Phone: Start: 08-16-2024 End: 08-16-2024 Patient encounter procedure [facility] [place] Work Phone: Start: 08-09-2024 End: 08-09-2024 ambulatory MD Jignesh Gonsalez Work Phone: [facility] Work Phone: Start: 08-09-2024 End: 08-09-2024 Patient encounter procedure MD Jignesh Gonsalez Work Phone: [facility] [place] Work Phone: Start: 08-08-2024 ambulatory [facility] Start: 07-26-2024 End: 07-26-2024 ambulatory [facility] Start: 07-18-2024 End: 07-18-2024 Timo Gonsalez MD Work Phone: [facility] Comment on above: Seizure disorder (CM S/HCC) Start: 06-13-2024 End: 06-13-2024 ambulatory IMELDA THOMPSON Not Available Start: 05-21-2024 End: 05-21-2024 ambulatory JIGNESH GONSALEZ Not Available Start: 05-16-2024 End: 05-16-2024 ambulatory IMELDA THOMPSON Not Available Start: 05-15-2024 End: 05-15-2024 ambulatory MD Jignesh Gonsalez Work Phone: [facility] Work Phone: Start: 05-15-2024 End: 05-15-2024 Patient encounter procedure MD Jignesh Gonsalez Work Phone: [facility] [place] Work Phone: Start: 04-23-2024 End: 04-23-2024 ambulatory [facility] Work Phone: Start: 04-23-2024 End: 04-23-2024 Patient encounter procedure [facility] [place] Work Phone: Start: 04-17-2024 End: 04-17-2024 ambulatory CORNELIO COTTER Not Available Start: 03-07-2024 End: 03-07-2024 ambulatory AMRIK PÉREZ Not Available Start: 12-30-2023 ambulatory Chris CAMARILLO Facili ty:[facility] [place] Start: 12-21-2023 Telephone encounter Epifanio dennison MD Work Phone: [facility] Start: 12-20-2023 ambulatory [facility] Start: 07-18-2023 End: 07-19-2023 ambulatory JIGNESH GONSALEZ Facility:[facility] Start: 07-18-2023 End: 07-18-2023 Patient encounter procedure Chris CAMARILLO [facility] Start: 07-05-2023 Office outpatient ne w 30 minutes Luiz Riggs [facility] Start: 07-05-2023 End: 07-05-2023 ambulatory MD Jignesh Gonsalez Work Phone: [facility] Work Phone: Start: 07-05-2023 End: 07-05-2023 Patient encounter procedure MD Jignesh Gonsalez Work Phone: [facility] Work Phone: Start: 01-07-2023 End: [...] 04-06-2022 End: 04-06-2022 ambulatory Neelam Morris Other [facility] [employer] Other Start: 04-06-2022 Office outpatient vi sit 15 minutes Neelam Morris [facility] [place] Start: 12-28-2021 End: 12-28-2021 ambulatory Alex Bonilla Other [employer] Other Start: 12-28-2021 Office outpatient ne w 30 minutes Alex Bonilla [facility] Start: 11-20-2020 End: 11-20-2020 Emergency department patient visit KARINA JAY Facility:[facility] Procedures Date Procedure Procedure Detail [...] on above: Performed By: #### P [facility] #### [facility] [address] [place] [address] Dr. Jeimy Tenorio Extraction of cataract Patri [...] FM [address] [place] [phone] Jignesh Gonsalez MD [address] [place] [phone] [facility] Start: 02-20-2025 End: 02-20-2025 Patient encounter procedure [facility] Comment on above: Arrived Start: 01-21-2025 End: 01-21-2025 Patient encounter procedure 01/21/2025 1:45 PM EST Office Visit [facility] [address] [place] [phone] Jignesh Gonsalez MD [address] [place] [phone] Arrived [facility] Comment on above: Arrived Start: 12-19-2024 End: 12-19-2024 Patient encounter procedure 12/19/2024 1:40 PM EST Office Visit [facility] [address] [place] [phone] Amrik Pérez MD [address] [place] [address] Deviated nasal septum; Chronic rhinosinusitis [facility] Comment on above: Deviated nasal septu m; Chronic rhinosinusitis Start: 11-26-2024 End: 11-26-2024 Patient encounter procedure 11/26/2024 2:00 PM EST Office Visit [facility] [address] [place] [address] Jose M Rea, [address] [place] [address] [facility] Start: 11-22-2024 End: 11-22-2024 Patient encounter procedure [facility] Comment on above: Arrived Start: 11-22-2024 End: 11-22-2025 Basic metabolic 1998 panel - Serum or Plasma Basic metabolic panel Lab Routine Encounter for long-term current use of medication Expected: 11/22/2024 (Approximate), Expires: 11/22/2025 [facility] Work Phone: Comment on above: Expected: 11/22/2024 (Approximate), Expires: 11/22/2025 Start: 11-22-2024 End: 11-22-2025 CBC W Auto Differential panel - Blood CBC and differential Lab Routine Encounter for long-term current use of medication Expected: 11/22/2024 (Approximate), Expires: 11/22/2025 [facility] Comment on above: Expected: 11/22/2024 (Approximate), Expires: 11/22/2025 Start: 11-22-2024 End: 11-22-2025 Hepatic function 2000 panel - Serum or Plasma Hepatic function panel Lab Routine Encounter for long-term current use of medication Expected: 11/22/2024 (Approximate), Expires: 11/22/2025 [facility] Comment on above: Expected: 11/22/2024 (Approximate), Expires: 11/22/2025 Start: 11-22-2024 End: 11-22-2025 Lipid 1996 panel - Serum or Plasma Lipid panel Lab Routine Dyslipidemia (CMS/HCC) Expected: 11/22/2024 (Approximate), Expires: 11/22/2025 [facility] Comment on above: Expected: 11/22/2024 (Approximate), Expires: 11/22/2025 Start: 11-22-2024 End: 11-22-2025 Prostate specific Ag [Mass/volume] in Serum or Plasma PSA Lab Routine Screening PSA (prostate specific antigen) Expected: 11/22/2024 (Approximate), Expires: 11/22/2025 [facility] Comment on above: Expected: 11/22/2024 (Approximate), Expires: 11/22/2025 Start: 11-22-2024 End: 11-22-2025 Thyrotropin [Units/volume] in Serum or Plasma TSH Lab Routine Class 3 severe obesity due to excess calories with serious comorbidity and body mass index (BMI) of 40.0 to 44.9 in adult ([facility]) Expected: 11/22/2024 (Approximate), Expires: 11/22/2025 [facility] Comment on above: Expected: 11/22/2024 (Approximate), Expires: 11/22/2025 Start: 10-25-2024 End: 10-25-2024 Patient encounter procedure [facility] Comment on above: Arrived Start: 10-25-2024 End: 10-25-2025 CT Maxillofacial region WO and W contrast IV CT SINUS WO IV CONTRAST Imaging Routine Chronic rhinosinusitis Expected: 10/25/2024, Expires: 10/25/2025 [facility] Work Phone: Comment on above: Expected: 10/25/2024 , Expires: 10/25/2025 Start: 09-27-2024 End: 09-27-2024 Patient encounter procedure 09/27/2024 3:30 PM EST Office Visit [facility] [address] [place] [address] Jignesh Gonsalez MD [address] [place] [address] [facility] Start: 07-22-2024 Influenza vaccination Influenza Vacc ine (#1) [facility] Start: 12-30-2023 COVID-19 Vaccine ( season) COVID-19 Vaccine ( season) [facility] Start: 08-16-2023 Adult BMI Screening Adult BMI Screen ing [facility] Start: 08-16-2023 Fall Risk Screening Fall Risk Screen ing [facility] Start: 08-16-2023 Tobacco Screening Tobacco Screening [facility] Start: 08-05-2021 Pneumococcal Vaccine : 65+ Years (2 of 2 - PCV) Pneumococcal Vaccine: 65+ Years (2 of 2 - PCV) [facility] Start: 1974 Administration of varicella zoster vaccine Zoster (Shingles) Vaccine (1 of 2) [facility] Start: 1974 DTaP,Tdap and Td Vaccines (1 - Tdap) DTaP,Tdap and Td Vaccines (1 - Tdap) [facility] Start: 1967 Depression Screening Depression Scre ening [facility] Start: 1955 Medicare Annual Well ness (AWV) Medicare Annual Wellness (AWV) [facility] Start: 1955 Medicare Annual Well ness Visit Medicare Annual Wellness Visit [facility] Start: 1955 Screening for malign ant neoplasm of colon [facility] MR Knee - right WO contrast MR knee right wo IV contrast Imaging Routine Chronic pain of right knee Internal derangement of right knee Ordered: 10/25/2024 [facility] Comment on above: Ordered: 10/25/2024 Pulmonary function report Pulmonary Function Test Imaging Routine SOB (shortness of breath) on exertion Ordered: 01/21/2025 [facility] Work Phone: Comment on above: Ordered: 01/21/2025 XR Knee - right 4 Views [facility] Immunizations Immunization Date Immunization Notes Care Provider Fa cility 10-11-2024 influenza virus vacc ine, unspecified formulation Jignesh Gonsalez MD Work Phone: [facility] 11-04-2023 Covid-19, Mrna, Lnp- s, Bivalent, Pf, 30mcg/0.3 ml Epifanio Kaufman MD Work Phone: [facility] 11-04-2023 Influenza, Seasonal, Quadrivalent, Adjuvanted Jignesh Gonsalez MD Work Phone: [facility] 11-04-2023 influenza virus vacc ine, unspecified formulation Jignesh Gonsalez MD Work Phone: [facility] 08-21-2022 influenza virus vacc ine, unspecified formulation Epifanio Kaufman MD Work Phone: [facility] 08-21-2022 Influenza, High-dose Seasonal, Quadrivalent, Preservative Free Jignesh Gonsalez MD Work Phone: [facility] 08-21-2022 SARS-COV-2 (COVID-19 ) Vaccine, Unspecified Epifanio Kaufman MD Work Phone: [facility] 08-06-2021 Influenza Vaccine, Quadrivalent, Adjuvanted Jignesh Gonsalez MD Work Phone: [facility] 02-25-2021 COVID-19, mRNA, LNP- S, PF, 100mcg/0.5mL Dose Jignesh Gonsalez MD Work Phone: [facility] 02-12-2021 COVID-19, mRNA, LNP- S, PF, 30mcg/0.3mL Dose Epifanio Kaufman MD Work Phone: [facility] 08-05-2020 influenza, injectabl e, quadrivalent, preservative free Jignesh Gonsalez MD Work Phone: [facility] 08-05-2020 pneumococcal polysaccharide vaccine, 23 valent Jignesh Gonsalez MD Work Phone: [facility] 09-03-2019 influenza, seasonal, injectable Jignesh Gonsalez MD Work Phone: [facility] 08-24-2019 influenza, injectabl e, quadrivalent, preservative free Jignesh Gonsalez MD Work Phone: [facility] Payers Date Payer Category Payer Self-pay [id number] 2023 Medicaid [id number] 2023 Medicaid [id number] 2022 Medicare [id number] 2021 Medicare [id number] 2021 Unknown [id number] 2021 Medicare [id number] 2020 Medicare [id number] 2019 Unknown [id number] 1959 Medicare [id number] 2. [id number] 1955 Unknown [id number] 2.16.8 40.1.036373.3.579.2.647 1955 Unknown [id number] 2.16.84 0.1.534755.3.579.2.593 1955 Unknown [id number] 2.16.84 0.1.377423.3.579.2.593 1955 Unknown [id number] 2.16.84 0.1.169995.3.579.2.593 1955 Unknown [id number] 2.16.84 0.1.980923.3.579.2.593 1955 Unknown [id number] 2.16.84 0.1.664165.3.579.2.593 1955 Unknown [id number] 2.16.84 0.1.613807.3.579.2.593 1955 Unknown [id number] 2.16.84 0.1.893651.3.579.2.593 1955 Unknown [id number] 2.16.8 40.1.905869.3.579.2.1286 1955 Unknown [id number] 2.16.8 40.1.836234.3.579.2.727 5 Unknown [id number] 2.16.8 40.1.950015.3.579.2.727 1955 Unknown [id number] 2.16.84 0.1.977921.3.579.2.1259 1955 Unknown [id number] 2.16.84 0.1.312839.3.579.2.1259 1955 Unknown [id number] 2.16.84 0.1.922534.3.579.2.1259 1955 Unknown [id number] 2.16.84 0.1.400416.3.579.2.1259 1955 Unknown [id number] 2.16.84 0.1.051606.3.579.2.1259 1955 Unknown [id number] 2.16.84 0.1.148129.3.579.2.1259 1955 Unknown [id number] 2.16.84 0.1.551484.3.579.2.1259 1955 Unknown [id number] 2.16.84 0.1.372479.3.579.2.1259 1955 Unknown [id number] 2.16.84 0.1.741335.3.579.2.1259 1955 Unknown [id number] 2.16.84 0.1.118808.3.579.2.1259 1955 Unknown [id number] 2.16.84 0.1.221082.3.579.2.1259 1955 Unknown [id number] 2.16.84 0.1.016766.3.579.2.1259 1955 Unknown [id number] 2.16.84 0.1.014395.3.579.2.1259 1955 Unknown [id number] 2.16.84 0.1.918668.3.579.2.1259 Medicare [id number] Unknown [id number] 2.16.8 40.1.057661.3.579.2.531 Unknown [id number] 2.16.8 40.1.225899.3.579.2.531 Unknown [id number] 2.16.8 40.1.947181.3.579.2.531 Social History Date Type Detail Facility Start: 12-14-2023 End: 01-15-2025 Sex Assigned At [facility] Start: 1955 Sex Assigned At Male [facility] Tobacco smoking status No Smoking Status Entered [facility] [employer] Start: 04-23-2024 Tobacco smoking status [facility] Never smoked tobacco (finding) [facility] Start: 01-11-2024 End: 12-19-2024 Tobacco smoking status [facility] Ex-smoker [facility] Start: 11-21-1971 End: 04-18-1997 History of tobacco use Current smoker [facility] Start: 11-21-1971 End: 04-18-1997 History of tobacco use Cigarette Smoker [facility] Start: 01-11-2024 End: 12-19-2024 Tobacco use and exposure Smokeless tobacco non-user [facility] Start: 05-21-2024 End: 02-20-2025 Alcoholic beverage intake Lifetime non-drinker (finding) [facility] Start: 12-14-2023 End: 01-15-2025 History [...] got money to buy more. Never true [facility] Start: 1955 Sex assigned at Not on file N [facility] Start: 08-16-2022 Alcohol intake Ex-drinker (finding) [facility] NEGATED: Highlighted rowStart: NINF History of tobacco use Passive smoker [facility] Clinical Notes 11-21-2020 to 02-20-2025 [...] and monitor PRN. documented in this encounter [facility] 01-22-2025 Note [facility] Cardiology Clinic Note Chief Complaint: Patient here for follow up [facility]. Underwent heart cath on 01/11/2025 with [...] needed each day., Disp: , Rfl: HYDROcodone-acetaminophen ([place]) 5-325 mg tablet, take 1 tablet by [...] or chew., Disp: 30 tablet, Rfl: 0 nsfiycxbsrnt-flzx-cjajqbmb-foli c acid (Multivitamin 50 Plus) tablet, 1 [...] PSYCH: appropriate mood, affect, and judgement. INVESTIGATIONS: Echocardiogram-[facility] Name: NAZARIO CORTES Study Date: 01/11/2025 10:06 AM B/P: 142 mmHg/84 mmHg HR: Date of : 1955 Location: [facility] Height: 74 in. Age: 69 year(s) Patient Room : 3140 Weight: (more content not included)... [facility] 01-21-2025 History of Presen t illness Narrative Associated Problem(s): SOB (shortness of breath) on exertion Signs of COPD and check PFTs. Start albuterol PRN. Associated Problem(s): Coronary artery disease involving [place] coronary artery of [place] heart without angina pectoris (CMS/HCC) Symptoms improved with medication change and follow with cardiology. Images from the original note were not included. Subjective Patient ID: Nathan Cortes is a 69 y.o. male who presents for Follow-up (Hospital f/up [place]). Hospital follow up from 01/09-01/13 for unstable angina. Developed chest pain and to ER. CE normal and echo normal. Continued to have pain and seen by cardiology. Concerned of unstable angina and transferred to [facility] 01/10. Heart cath performed and showed [...] Addressed This Visit Coronary artery disease involving [place] coronary artery of [place] heart without angina pectoris (CMS/HCC) - Primary Symptoms improved with medication change and follow with cardiology. SOB (shortness of breath) on exertion Signs of COPD and check PFTs. Start albuterol PRN. Relevant Medications albuterol HFA 90 mcg/act inhaler Other Relevant Orders Pulmonary Function Test documented in this encounter [facility] 01-13-2025 [facility] 01-13-2025 Note Physical Therapy Physical Therapy Evaluation [...] year old male present as transfer from [facility] for chest pain. On 01/11/25, pt underwent [...] Level of Function Prior Function Level of [place]: Independent with ADLs and functional transfers, Independent [...] Independent Bed Mobilit (more content not included)... [facility] 01-13-2025 Note [facility] are has accepted. [facility] 01-13-2025 Note Hospital Medicine Discharge Summary Final Discharge Diagnosis: Unstable angina KAROL History of seizures Hyperlipidemia Falls at home Obese class 2 - BMI 40 Admission Diagnosis: Unstable angina (CMS/[facility]) [I20.0] Hospital course: Nazario Cortes is an 69 y.o. male who came from [facility] with Angina pectoris unstable. Patient is a 69-year-old male with the following past medical history CAD, HLD, depression, history of seizures, obstructive sleep apnea, obesity, history of bladder cancer diagnosed 2018 with tumor removal. Patient was transferred from [facility] where he has been admitted on being managed for chest pain. He was seen by cardiology and after consultation patient was transferred to [facility] for cardiac catheterization tomorrow. He states [...] consulted. WE will arrange home health through [facility]. Surgical, Invasive or Diagnostic Procedures Done [...] left radial artery was obtained. A 6 Faro[place] glide sheath was inserted without difficulty. Bilateral [...] Toprol-XL Take 1 (more content not included)... [facility] 01-12-2025 Note Attestation signed by Jony Webber [...] to the follow-up visit Jony Webber MD, [facility] Cardiology Progress Note Subjective Subjective: Patient [...] Value Ventricular Rate 70 Atrial Rate 70 NC Interval 210 QRS DURATION 78 QT Interval 410 QTC CALCULATION(BAZETT) 442 P Harcourt 35 R-Harcourt -9 T Wave Harcourt 36 Impression Sinus rhythm with 1st degree A-V block Otherwise normal ECG When compared with ECG of 20-NOV-2020 10:48, NC interval has increased Confirmed by Thomas YOUNGER, MILAGROS Garcia ([id number]) on 01/11/2025 1:02:38 PM Lab Results Component Value Date TROPONINI 0.01 01/11/2025 Transthoracic echo (TTE) complete Result Date: 01/11/2025 1 1 [facility] Heart Station [address] [place] [address] [phone] (fax) Echocardiogram-[facility] Name: NAZARIO CORTES Study Date: 01/11/2025 10:06 AM B/P: 142 mmHg/84 mmHg HR: Date of : 1955 Location: [facility] Height: 74 in. Age: 69 year(s) [...] 3 mmHg L (more content not included)... [facility] 01-12-2025 Note Hospital Medicine Daily Progress Note - 01/12/2025 11:29 AM; Room: [address] [place] [address] Admission: 01/11/2025 12:29 AM; Length of stay: 1 days THE HOSPITALIST TEAM PREFERS TO USE [employer] FOR NON-URGENT COMMUNICATION 7AM-7PM. IF I DO NOT RESPOND WITHIN 20 MINUTES OR URGENT MATTERS, PLEASE CALL THROUGH THE RECREATIONAL PROGRAMS DIRECTOR. FROM 7PM-7AM, PLEASE PAGE [phone](COVR). Code Status: Full Code Barriers to Discharge: chest pain Expected Discharge Date: tomorrow? Discharge Destination: home Overview Nazario Cortes is an 69 y.o. male who came from [facility] with Angina pectoris unstable. Patient is a 69-year-old male with the following past medical history CAD, HLD, depression, history of seizures, obstructive sleep apnea, obesity, history of bladder cancer diagnosed 2018 with tumor removal. Patient was transferred from [facility] where he has been admitted on being managed for chest pain. He was seen by cardiology and after consultation patient was transferred to [facility] for cardiac catheterization tomorrow. He states [...] Active Inpatient Problems Principal Problem: Unstable angina ([facility]) Active Problems: Coronary arteriosclerosis Dyslipidemia Malignant neoplasm of urinary bladder ([facility]) Seizure disorder ([facility]) Lumbar spondylosis Assessment and Plan Unstable angina [...] LDL 97 01/12/2025 No results found for: [id number] , IRON , TIBC , C3 , [...] Fibrosis and sc (more content not included)... [facility] 01-11-2025 Note communication receiv ed that Patient is reporting having multiple falls at home and is reporting spouse has a nurse Enedelia from [facility], so would like [facility] if needing [facility] services. Preliminary referral sent to [facility], via [employer] system. [facility] 01-11-2025 Note 01/11/25 1606 Admission Assessment Questions [...] Status Interested Does the patient have a telephonic nurse case manager assigned to them through their insurance? No Living Arrangement (Current/Prior to Hospitalization) Private residence (lives at home with ) Does the patient have history of HHC or SNF? Yes (hx of HHC not active, when patient use to live in [place], patient stated his kadi has [place] (nurses [...] you able to send link and activate [employer]? MyChart already active [facility] 01-11-2025 Note -Patient pain contro l. -Patient's hydrocodone 5/325 as needed -Continue other home medications per reconciliation Maintain DVT prophylaxis DVT protocols GI protection Protonix Monitor labs and correct abnormalities Discussed the plan of care with patient's nurse and with the patient himself and he is in agreement. [facility] 01-11-2025 Note -Continue statins. [facility] 01-11-2025 Note -Treat with statins -Manage also with nitrates -Aspirin -Consult cardiology and prep for heart cath later on today. [facility] 01-11-2025 Note -Seizures currently stable resume and reconcile home anticonvulsants [facility] 01-11-2025 Note -Chronic problem we will continue to monitor [facility] 01-11-2025 Note -Use nitroglycerin a nd nitrates -N.p.o. after midnight -Will need to proceed to have cath tomorrow -Consult cardiology. [facility] 01-11-2025 Note Hospital Medicine History and Physical 01/11/2025 1:38 AM THE HOSPITALIST TEAM PREFERS TO USE [employer] FOR NON-URGENT COMMUNICATION 7AM-7PM. IF I DO NOT RESPOND WITHIN 20 MINUTES OR URGENT MATTERS, PLEASE CALL THROUGH THE RECREATIONAL PROGRAMS DIRECTOR. FROM 7PM-7AM, PLEASE PAGE [phone](COVR). Chief Complaint No chief complaint on file. History of Present Illness Nazario Cortes is an 69 y.o. male who came from [facility] with Angina pectoris unstable. Patient is a 69-year-old male with the following past medical history CAD, HLD, depression, history of seizures, obstructive sleep apnea, obesity, history of bladder cancer diagnosed 2018 with tumor removal. Patient was transferred from [facility] where he has been admitted on being managed for chest pain. He was seen by cardiology and after consultation patient was transferred to [facility] for cardiac catheterization tomorrow. He states [...] current laboratory findings are available here at [facility]. Review of System and Physical Exam [...] sleep apnea comes seen on transfer from [facility] with unstable angina. Patient is being prepped for cardiac catheterization tomorrow by cardiology. Assessment & Plan Unstable angina ([facility]) -Use nitroglycerin and nitrates -N.p.o. after midnight -Will need to proceed to have cath tomorrow -Consult cardiology. Coronary arteriosclerosis -Treat with statins -Manage also with nitrates -Aspirin -Consult cardiology and prep for heart cath later on today. Dyslipidemia -Continue statins. Malignant neoplasm of urinary bladder ([facility]) -Chronic problem we will continue to monitor Seizure disorder ([facility]) -Seizures currently stable resume and reconcile home [...] this hospital stay by a member of [facility] Medicine. Past Medical History Past Medical History: Diagnosis Date Bladder cancer ([facility]) around 1997 Cholelithiasis Colon polyp Depression Dyslipidemia Hearing loss Left foot drop Peripheral neuropathy Seizure disorder ([facility]) TIA (transient ischemic (more content not included)... [facility] 12-19-2024 History of Presen t illness Narrative [...] Date Noted Neuropathy due to chemotherapeutic drug ([facility]) 08/04/2023 Degenerative lumbar spinal stenosis 08/04/2023 Deviated nasal septum 10/26/2023 Dyslipidemia ([facility]) 10/26/2023 Major depressive disorder, recurrent episode, mild (HCC) ([facility]) 10/26/2023 Malignant neoplasm of urinary bladder ([facility]) 10/26/2023 Seizure disorder ([facility]) 10/26/2023 Coronary arteriosclerosis ([facility]) 07/21/2020 Class 3 severe obesity due to excess calories with serious comorbidity and body mass index (BMI) of 40.0 to 44.9 in adult ([facility]) 01/12/2021 Encounter for long-term current use of medication 11/29/2023 Screening PSA (prostate specific antigen) 11/29/2023 Chest pain due to CAD ([facility]) 01/11/2024 KAROL (obstructive sleep apnea) 02/21/2024 Bilateral [...] History: Diagnosis Date Cataracts, bilateral 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 documented in this encounter [facility] 11-27-2024 History of Presen t illness Narrative [...] Ashley Rea DO documented in this encounter [facility] 11-22-2024 History of Presen t illness Narrative Associated Problem(s): Malignant neoplasm of urinary bladder (CMS/HCC) Follow up with urology. Associated Problem(s): Seizure disorder (CMS/HCC) Continue medication. Associated Problem(s): Major depressive disorder, recurrent episode, mild (HCC) ([facility]) Symptoms stable and continue celexa. Associated Problem(s): Class 3 severe obesity due to excess calories with serious comorbidity and body mass index (BMI) of 40.0 to 44.9 in adult ([facility]) Weight loss indicated. Associated Problem(s): Medicare annual [...] not to smoke. documented in this encounter [facility] 11-06-2024 Telephone encounter Note Spoke to Janet, Chart was audited from 05/20/23 and needed my signature on the document.. added and faxed to [employer]. [facility] Work Phone: 11-06-2024 Miscellaneous Notes Spoke to Janet, Chart was audited from 05/20/23 and needed my signature on the document.. added and faxed to [employer]. Her name is Janet that called not Neetu. Neetu from [facility] center called and left vm that she needs a return call. She stated she has called a few times and has not received a call back regarding this patient. I tried to call back and it just kept ringing. Please call her back at [phone]. documented in this encounter [facility] 11-06-2024 Telephone encounter Note Her name is Janet that called not Neetu. [facility] 11-06-2024 Telephone encounter Note Neetu from [facility] called and left vm that she needs a return call. She stated she has called a few times and has not received a call back regarding this patient. I tried to call back and it just kept ringing. Please call her back at [phone]. [facility] 10-30-2024 History of Presen t illness Narrative Pt picked up supplies documented in this encounter [facility] 10-25-2024 History of Presen t illness Narrative [...] spasms. Continue PT exercises. Relevant Medications HYDROcodone-acetaminophen ([place]) 5-325 MG tablet Chronic rhinosinusitis Continued congestion [...] to General Surgery documented in this encounter [facility] 08-08-2024 Note SUBJECTIVE: Chief complaint: Back pain. [...] about 6 or 7 years ago, in [facility] and had injections, which he states he has made his symptoms worse. Not interested in pursuing additional injections. Has had patient care technician many years ago for previous symptoms of [...] needed each day., Disp: , Rfl: HYDROcodone-acetaminophen ([place]) 5-325 mg tablet, take 1 tablet by mouth four times a day if needed for severe pain for up to 7 days, Disp: , Rfl: meclizine (Antivert) 25 mg tablet, take 1 tablet by mouth four times a day if needed for dizziness, (more content not included)... [facility] 12-21-2023 Miscellaneous Notes Received faxed referral for patient to be seen for Lumbar. Called and spoke to patient, stated he has an appointment set up already at [facility] office. documented in this encounter [employer] 12-21-2023 Telephone encounter Note Received faxed referral for patient to be seen for Lumbar. Called and spoke to patient, stated he has an appointment set up already at [facility] office. [employer] 07-05-2023 Evaluation note Encounter Date Diagnosis Assessment [...] fusion of cervical spine (ICD-10 - Z98.1) [facility] Other 06-09-2023 Hospital Discharge instructions Follow Up Care 04/29/2023 15:31:28 With:RABIA GAN, Chris Brizuela, URL Address: [facility] [address] [place] [address]- [phone] When: Unknown [facility] [employer] 11-10-2022 NotePROCEDURE: XR FOOT RT [...] Electronically authenticated by: KELL BLANDON Date: 2022-09-30 08:[address] [place], [place] [address]10-03-2022 NotePROCEDURE: XR KNEE LT 4V or >, [...] Electronically authenticated by: TRINIDAD BEAVER Date: 2022-08-23 14:[facility]10-03-2022 NotePROCEDURE: XR KNEE LT 4V or [...] Electronically authenticated by: TRINIDAD BEAVER Date: 2022-08-23 14:[facility]10-03-2022 NotePROCEDURE: XR KNEE LT 4V or [...] authenticated by: TRINIDAD BEAVER Date: 2022-08-23 14:[id number] Evaluation [facility]* Encounter Date Diagnosis Assessment Notes Treatment Notes Treatment Clinical Notes March, Bilateral impacted cerumen (ICD-10 - H61.23) Avoid using Q-tips or earplugs. Keep your ears clean and dry. Follow-up with your family physician for any further concerns. [facility] Other 02-07-2022 Evaluation note* Encounter Date Diagnosis [...] contact us for further management as needed. [facility] Other 01-01-2021 NoteMR#: [id number] E [facility] Pt. Name: Nazario Cortes Admitted: [...] history of coronary artery disease, followed by [facility] Cardiology Clinic that presents to the [facility] Emergency Department with complaints of [...] to follow up with his PCP and phosphoric acid operator. Total time of discharge was 45 minutes. Electronically Signed by: Trinidad Hamilton MD 11/21/2020 08:00 A Trinidad Hamilton MD .. Date Dict: 11/20/2020/06:21 P/Loida Ashley CNP Date Trans: 11/21/2020 12:04 A/shabbir [id number] cc: Jose Mccloud M.D. [facility] [address] [place] [address]., [address] [place] [address]JyxOhio [facility] HospitalEvaluation + Plan note Future Appointments Appointment Date:08/19/2023 10:30:00 AM Scheduled Provider:Chris CAMARILLO MD Location:[facility] Appointment Type:URO New Patient [facility] evaluation noteNo assessment information available [facility] Work Phone: Evaluation note* Diagnosis Onset Date Resolution Status Impacted cerumen of both ears acute [facility] Work Phone: Evaluation note* Diagnosis Onset Date Resolution Status Impacted cerumen of both ears acute Left elbow pain acute [facility] Work Phone: Evaluation note* Diagnosis Onset Date Resolution Status Left elbow pain acute Impacted cerumen of both ears acute [facility] Work Phone: Evaluation note* Diagnosis Onset Date Resolution Status Impacted cerumen of both ears acute Allergic rhinitis noneactive [facility] Work Phone: evaluation note* Diagnosis Major [...] Coronary atherosclerosis of unspecified type of vessel, [place] or graft Chest pain due to CAD [...] of intractable epilepsy documented in this encounter [facility] HealthcareEvaluation note* Diagnosis Major depressive disorder, [...] Coronary atherosclerosis of unspecified type of vessel, [place] or graft Chest pain due to CAD [...] of lumbar region documented in this encounter [facility] HealthcareEvaluation note* Diagnosis Major depressive disorder, [...] Coronary atherosclerosis of unspecified type of vessel, [place] or graft Chest pain due to CAD [...] Coronary atherosclerosis of unspecified type of vessel, [place] or graft Chest pain due to CAD [...] malignant neoplasms, colon documented in this encounter [facility] HealthcareEvaluation note* Diagnosis Major depressive disorder, recurrent [...] Coronary atherosclerosis of unspecified type of vessel, [place] or graft Chest pain due to CAD [...] Coronary atherosclerosis of unspecified type of vessel, [place] or graft Chest pain due to CAD [...] of lumbar region documented in this encounter [facility] HealthcareEvaluation note* Diagnosis Major depressive disorder, [...] Coronary atherosclerosis of unspecified type of vessel, [place] or graft Chest pain due to CAD [...] Coronary atherosclerosis of unspecified type of vessel, [place] or graft Chest pain due to CAD [...] of colon- Primary documented in this encounter [facility] HealthcareEvaluation note* Diagnosis Major depressive disorder, [...] Coronary atherosclerosis of unspecified type of vessel, [place] or graft Chest pain due to CAD [...] Coronary atherosclerosis of unspecified type of vessel, [place] or graft Chest pain due to CAD [...] Unspecified sinusitis (chronic) documented in this encounter [facility] HealthcareEvaluation note* Diagnosis Major depressive disorder, [...] Coronary atherosclerosis of unspecified type of vessel, [place] or graft Chest pain due to CAD [...] Deviated nasal septum documented in this encounter [facility] HealthcareEvaluation note* Diagnosis Major depressive disorder, [...] Coronary atherosclerosis of unspecified type of vessel, [place] or graft Chest pain due to CAD [...] unspecified site (CMS/HCC) Coronary artery disease involving [place] coronary artery of [place] heart without angina pectoris (CMS/HCC)- Primary SOB [...] Coronary atherosclerosis of unspecified type of vessel, [place] or graft Chest pain due to CAD [...] unspecified site (CMS/HCC) Coronary artery disease involving [place] coronary artery of [place] heart without angina pectoris (CMS/HCC)- Primary SOB (shortness of breath) on exertion Shortness of breath Degenerative lumbar spinal stenosis Spinal stenosis of lumbar region documented in this encounter [facility] HealthcareEvaluation note* Diagnosis Major depressive disorder, recurrent [...] Coronary atherosclerosis of unspecified type of vessel, [place] or graft Chest pain due to CAD [...] unspecified site (CMS/HCC) Coronary artery disease involving [place] coronary artery of [place] heart without angina pectoris (CMS/HCC)- Primary SOB [...] ACHILLES [employer]ON REPAIR Hospitalization History See Above [employer] Other History general Narrative - Reported* Type [...] Surgical History gallbladder Hospitalization History See Above [employer] Other Hospital course Narrative No data available for this section [facility] [place] InstructionsNot on filedocumented in this encounter [facility] SystemProgress note No data available for this section [facility] reason for visit NarrativeReferral Dr. Newell [facility] Definiens Other reason for visit Narrative* Consultation (Routine) - Closed Specialty Diagnoses / Procedures Referred By Contac t Referred To Contact General Surgery Diagnoses Colon cancer screening Procedures [place] OFFICE/OUTPATIENT [facility] HIGH MDM Jignesh Gonsalez MD [address] [place] [address] Phone: tel: fax: Jose M Rea DO [address] [facility] [address] [place] [address] Phone: tel: fax: Referral ID Status Reason Start Date Expiration Date V isits Requested Visits Authorized [id number] Closed Specialty Services Required 10/25/2024 04/23/2025 1 [...] o other toxic agents (G62.2) Referral Organization [facility] Ne urosurgery Referring Provider First Name Luiz Referring Provider Last Name Keely Referring Provider Specialty Neurologica l Surgery Referred Organization [facility] Referred Address ,[place],[address] Referred Provider Specialty Physical The rapist Referral [...] and content) DATE CREATED AUTHOR 08/29/2021 [facility] DATE CREATED AUTHOR AUTHOR'S ORGANIZ ATION 10/31/2021 [facility] DATE CREATED AUTHOR AUTHOR'S ORGANIZ ATION 01/13/2023 [facility] DATE CREATED AUTHOR AUTHOR'S ORGANIZ ATION 12/25/2023 [facility] DATE CREATED AUTHOR AUTHOR'S ORGANIZ ATION 12/29/2023 [facility] DATE CREATED AUTHOR AUTHOR'S ORGANIZ ATION 10/20/2024 [facility] DATE CREATED AUTHOR AUTHOR'S ORGANIZ ATION 01/24/2025 [facility] DATE CREATED AUTHOR AUTHOR'S ORGANIZ ATION 02/23/2025 [facility] EPIC REASON FOR [...] Diagnoses Deviated nasal septum Chronic rhinosinusitis Procedures NC OFFICE/OUTPATIENT NEW HIGH MDM 60 MINUTES Jignesh Gonsalez MD [address] [place] [address] Phone: tel: fax: Amrik Pérez MD [address] [place] [address] Phone: tel: fax: Referral ID Status Reason Start Date Expiration Date V isits Requested Visits Authorized [id number] Closed Specialty Services Required 11/28/2024 05/27/2025 1 [...] Attending Provider Active Start: September 07, 2024 Component Design Engineer Relationship Specialty Start Date End Date Jignesh Gonsalez MD [address] [place] [phone] PCP - General Family Medicine 12/15/23 Component Design Engineer Relationship Specialty Start Date End Date Jignesh Gonsalez MD [address] [place] [phone] PCP - General Family Medicine 12/15/23 Component Design Engineer Relationship Specialty Start Date End Date Jignesh Gonsalez MD [address] [place] [phone] PCP - General Family Medicine 12/15/23 Component Design Engineer Relationship Specialty Start Date End Date Jignesh Gonsalez MD [address] [place] [phone] PCP - General Family Medicine 12/15/23 Component Design Engineer Relationship Specialty Start Date End Date Jignesh Gonsalez MD [address] [place] [address] PCP - General Family Medicine 12/15/23 Component Design Engineer Relationship Specialty Start Date End Date Jignesh Gonsalez MD [address] [place] [address] PCP - General Family Medicine 12/15/23 Component Design Engineer Relationship Specialty Start Date End Date Jignesh Gonsalez MD [address] [place] [address] PCP - General Family Medicine 12/15/23 Component Design Engineer Relationship Specialty Start Date End Date Jignesh Gonsalez MD [address] [place] [address] PCP - General Family Medicine 12/15/23 Component Design Engineer Relationship Specialty Start Date End Date Jignesh Gonsalez MD [address] [place] [address] PCP - General Family Medicine 12/15/23 Component Design Engineer Relationship Specialty Start Date End Date Jignesh Gonsalez MD [address] [place] [address] PCP - General Family Medicine 12/15/23 Component Design Engineer Relationship Specialty Start Date End Date Jignesh Gonsalez MD [address] [place] [address] PCP - General Family Medicine 12/15/23 Component Design Engineer Relationship Specialty Start Date End Date Jignesh Gonsalez MD [address] [place] [address] PCP - General Family Medicine 12/15/23 Component Design Engineer Relationship Specialty Start Date End Date Jignesh Gonsalez MD [address] [place] [address] PCP - General Family Medicine 12/15/23 Component Design Engineer Relationship Specialty Start Date End Date TeresitakaleJose velaDO [address] [place] [address] PCP - General Family Medicine 11/17/23 Component Design Engineer Relationship Specialty Start Date End Date Jignesh Gonsalez MD [address] [place] [address] PCP - General Family Medicine 12/15/23 Component Design Engineer Relationship Specialty Start Date End Date Jignesh Gonsalez MD [address] [place] [address] PCP - General Family Medicine 12/15/23 Component Design Engineer Relationship Specialty Start Date End Date Jignesh Gonsalez MD [address] [place] [address] PCP - General Family Medicine 12/15/23 Component Design Engineer Relationship Specialty Start Date End Date Jignesh Gonsalez MD [address] [place] [address] PCP - General Family Medicine 12/15/23 Component Design Engineer Relationship Specialty Start Date End Date Jignesh Gonsalez MD [address] [place] [address] PCP - General Family Medicine 12/15/23 Component Design Engineer Relationship Specialty Start Date End Date Jignesh Gonsalez MD [address] [place] [address] PCP - General Family Medicine 12/15/23 Goals [...] BE BASED ON THE PRIMARY CLINICAL RECORDS. [facility]. provides no warranty or guarantee of the accuracy or completeness of information in this document.
[2025-03-08] VITALS (11 sets, daily range): BP systolic 118–136; BP diastolic 54–68; PULSE 80–91; TEMP 36.2–36.7; O2SAT 90–96
[2025-03-08] MEDS: PHENYTOIN 100 MG 200 MG PO ×4 (00:24→21:22)
[2025-03-08] MEDS: ATORVASTATIN CALCIUM 10 MG TABLET PO ×2 (00:24→21:23)
[2025-03-08] MEDS: FLUTICASONE PROPIONATE 50 MCG NASAL SPRAY 2 SPRAY NS ×3 (00:24→21:22)
[2025-03-08] MEDS: PHENobarbitaL 32.4 MG TABLET PO ×2 (00:24→21:22)
[2025-03-08 05:46] LABS: Hematocrit 40.5 % (42.0-54.0); Hemoglobin 13.5 g/dL (14.0-18.0); Mean Corpuscular HGB Conc 33.3 g/dL (29.9-35.2); Mean Corpuscular Hemoglobin 33.2 pg (25.9-34.0); Mean Corpuscular Volume 99.5 fL (80.0-94.0); Mean Platelet Volume 9.5 fL (9.5-13.5); Platelet Count 184 10^3/uL (150-450); Red Blood Count 4.07 10^6/uL (4.70-6.10); Red Cell Distribution Width 12.6 % (11.0-15.0); White Blood Count 8.8 10^3/uL (4.0-11.0)
[2025-03-08 05:55] LABS: Anion Gap 11.9; BUN Creatinine Ratio 16.8; Calcium 8.5 mg/dL (8.5-10.1); Carbon Dioxide 26.6 mmol/L (21.0-32.0); Chloride 102 mmol/L (98-107); Estimated GFR (African America >60 (>=60 mL/min/1.73m^2); Estimated GFR (Non-African Ame >60 (>=60 mL/min/1.73m^2); Glucose 108 mg/dL (74-106); Potassium 4.5 mmol/L (3.5-5.1); Sodium 136 mmol/L (136-145)
[2025-03-08 05:58] LABS: Phenytoin Dilantin 10.8 ug/mL (10.0-20.0)
[2025-03-08] MEDS: METHYLPREDNISOLONE SOD SUCC PF 40 MG/ML VIAL 60 MG IVP ×3 (06:17→17:30)
--- NOTE | 2025-03-08 06:21 | P.HP_ITS ---
HPI H&P: HPI History of Present Illness Chief complaint: SHortness of Breath Narrative: Patient has a known history of COPD, presented to the emergency room increasing cough and shortness of breath, found to have acute exacerbation of COPD secondary to right lower lobe pneumonia When I saw patient up in the medical surgical floor, still having some at least mild conversational dyspnea, somewhat labored breathing Opioid HPI Opioid Management Most Recent Pain and Opioid Data: Last Pain Scale 6 02/21/25 12:03 02/21/25 Last Pain Assessment 03/08/25 08:30 Last ORT Total Score 0 03/07/25 23:39 03/07/25 Last ORT Risk Category Low Risk 03/07/25 23:39 03/07/25 Review of Systems ROS Status of ROS 10 or more systems reviewed and unremark able except as noted in history and below [facility] Medical History (Updated 03/07/25 @ 21:46 by ) Seizure disorder ?G40.909 - Epilepsy, unspecified, not intractable, without status epilepticus (ICD-10) CAD (coronary artery disease) ?I25.10 - Atherosclerotic heart disease of [place] coronary artery without angina pectoris (ICD-10) Cervical vertebral fusion ?M43.22 - Fusion of spine, cervical region (ICD-10) Lipoma of axilla ?D17.20 - Benign lipomatous neoplasm of skin and subcutaneous tissue of unspecified limb (ICD-10) Rupture, tendon, Achilles ?S86.019A - Strain of unspecified Achilles tendon, initial encounter (ICD-10) Syncope ?R55 - Syncope and collapse (ICD-10) Seizure ?R56.9 - Unspecified convulsions (ICD-10) Malignant neoplasm of mediastinum ?C38.3 - Malignant neoplasm of mediastinum, part unspecified (ICD-10) Depression ?F32.A - Depression, unspecified (ICD-10) Dyslipidemia ?E78.5 - Hyperlipidemia, unspecified (ICD-10) Deviated nasal septum ?J34.2 - Deviated nasal septum (ICD-10) Degenerative lumbar spinal stenosis ?M48.061 - Spinal stenosis, lumbar region without neurogenic claudication (ICD-10) 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 - Drug-induced polyneuropathy (ICD-10) ?T45.1X5A - Adverse effect of antineoplastic and immunosuppressive drugs, initial encounter (ICD-10) CAD, multiple vessel ?I25.10 - Atherosclerotic heart disease of [place] coronary artery without angina pectoris (ICD-10) 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 - Malignant neoplasm of mediastinum, part unspecified (ICD-10) Bladder cancer ?C67.9 - Malignant neoplasm of bladder, unspecified (ICD-10) HLD (hyperlipidemia) ?E78.5 - Hyperlipidemia, unspecified (ICD-10) Chest pain ?R07.9 - Chest pain, unspecified (ICD-10) Surgical History History of cataract surgery ?Z98.49 - Cataract extraction status, unspecified eye (ICD-10) History of foot surgery ?Z98.890 - Other specified postprocedural states (ICD-10) History of esophagogastroduodenoscopy (EGD) ?Z98.890 - Other specified postprocedural states (ICD-10) History of colonoscopy ?Z98.890 - Other specified postprocedural states (ICD-10) History of neck surgery ?Z98.890 - Other specified postprocedural states (ICD-10) H/O shoulder surgery ?Z98.890 - Other specified postprocedural states (ICD-10) History of cholecystectomy ?Z90.49 - Acquired absence of other specified parts of digestive tract (ICD- 10) Family History Father Family history of myocardial infarction Sister Family history of cancer Other Family history of coronary artery disease Family history of diabetes mellitus Family history of gastric cancer Family history of heart disease Family history of hypertension Family history of kidney cancer Family history of stroke Social History Within the past year, how often did you have a drink containing alcohol: never Score interpretation: A score less than 4 is consistent with normal alcohol consumption. Smoking status: Former smoker Non-prescribed substance use: denies use Previous occupational history: retired Highest level of school completed/degree received: Associate degree: academic program Are you now , , , , never or living with a partner: In a typical week, how many times do you talk on the telephone with family, friends, or neighbors: 3 or more times per week How often do you get together with friends or relatives: 3 or more times per week Little interest or pleasure in doing things: not at all Feeling down, depressed, or hopeless: not at all Feel stressed/tense/nervous/anxious/difficulty sleeping: to some extent Life stressors: other Life stressor details: health Gender Identity: male Meds Home Medications and Allergies Home Medications ?Medication ?Instructions ?Recorded ?Confirmed ?Type atorvastatin 10 mg tablet 10 mg PO .hs 05/12/23 03/07/25 History citalopram 40 mg tablet 40 mg PO DAILY 05/12/23 03/07/25 History meclizine 25 mg tablet 25 mg PO QID PRN dizziness 05/12/23 03/07/25 History phenobarbital 32.4 mg tablet 32.4 mg PO Q12H 05/12/23 03/07/25 History phenytoin sodium extended 100 mg 200 mg PO TID 05/12/23 03/07/25 History capsule furosemide 40 mg tablet 40 mg PO DAILY edema 05/24/24 03/07/25 History nitroglycerin 0.3 mg sublingual 0.3 mg sublingual Q5M PRN chest 05/24/24 03/07/25 History tablet pain psyllium husk 0.4 gram capsule 0.4 g PO DAILY 12/04/24 03/07/25 History (Daily Fiber) aspirin 81 mg tablet,delayed 81 mg PO DAILY 01/09/25 03/07/25 History release (Adult Low Dose Aspirin) albuterol sulfate 90 mcg/actuation 2 inh inhalation Q4H PRN shortness 02/21/25 03/07/25 History aerosol inhaler of breath or wheezing fluticasone propionate 50 2 spray intranasal Q12H 02/21/25 03/07/25 History mcg/actuation nasal spray,suspension metoprolol succinate 25 mg 25 mg PO DAILY 02/21/25 03/07/25 History tablet,extended release 24 hr spironolactone 25 mg tablet 25 mg PO DAILY 02/21/25 03/07/25 History Allergies Allergy/AdvReac Type Severity Reaction Status Date / Time oxycodone (From OxyContin) Allergy Severe Anaphylaxis Verified 03/07/25 20:04 gabapentin Allergy Unknown Unknown Verified 03/07/25 20:04 Exam Constitutional Vital Signs, click to edit/add: Last Vital Signs Temp 97.4 F L 03/08/25 05:17 Pulse 85 03/08/25 06:00 Resp 19 03/08/25 05:17 BP 136/63 03/08/25 05:17 Pulse Ox 92 L 03/08/25 05:17 O2 Del Method Nasal Cannula 03/08/25 05:17 O2 Flow Rate 3 03/08/25 05:17 Documenting provider has reviewed patient's vital signs: yes Common normals: apparent distress (Mild conversational dyspnea) Chest Common normals: inspection of chest normal Respiratory Common normals: abnormal respiratory effort (Mild conversational dyspnea) Auscultation: rhonchi and wheezes Cardio Common normals: regular rate, regular rhythm and no murmurs Results Labs Labs: Short CBC 03/07/25 03/08/25 Range/Units 20:28 05:32 WBC 8.2 8.8 (4.0-11.0) 10^3/uL Hgb 13.2 L 13.5 L (14.0-18.0) g/dL Hct 40.5 L 40.5 L (42.0-54.0) % Plt Count 170 184 (150-450) 10^3/uL BMP 03/07/25 03/08/25 20:28 05:32 Sodium 138 136 Potassium 3.8 4.5 Chloride 103 102 Carbon Dioxide 31.2 26.6 BUN 17.0 17.0 Creatinine 1.30 1.01 Glucose 119 H 108 H Calcium 8.4 L 8.5 Liver Function 03/07/25 Range/Units 20:28 Total Bilirubin 0.3 (0.2-1.0) mg/dL AST 23 (15-37) U/L ALT 22 (16-63) U/L Alkaline Phosphatase 155 H (46-116) U/L Albumin 3.1 L (3.4-5.0) g/dL Assessment and Plan Assessment and Plan (1) Hypoxia: (2) COPD exacerbation: (3) Essential (primary) hypertension: (4) Seizure disorder: (5) CAD (coronary artery disease): Qualifiers: Coronary Disease-Associated Artery/Lesion type: [place] artery [place] vs. transplanted heart: [place] heart Associated angina: with unstable angina Qualified Code(s): I25.110 - Atherosclerotic heart disease of [place] coronary artery with unstable angina pectoris (6) Malignant neoplasm of mediastinum: Plan Admission findings: Acute hypoxia with O2 sat of 87%, respiratory distress secondary to right lower lobe pneumonia resulting in acute exacerbation of COPD Right lower lobe pneumonia with resulting in acute exacerbation of COPD with acute hypoxia-steroids, antibiotics, frequent aerosol treatments, try to obtain sputum culture Iron deficiency anemia-monitor daily Mild protein calorie malnutrition-it would be diet management Seizure disorder has not had a seizure in over 7 years, can remove seizure precautions Coronary artery disease due to hypercholesterolemia-maintain current medications Hypertension-continue with home medications Depression-continue with home medications Admission status: Patient with acute hypoxia secondary to right lower lobe pneumonia and acute exacerbation of COPD, medically necessary treatment will span 2 midnights, inpatient status
[2025-03-08 06:45] LABS: Magnesium 1.9 mg/dL (1.8-2.4)
[2025-03-08] MEDS: IPRATROPIUM/ALBUTEROL SULFATE 3 ML AMPUL.NEB IH ×5 (07:22→23:31)
[2025-03-08 08:04] LABS: Internal Control Within Normal Limits; Respiratory Syncytial Virus Not Detected (NOT DETECTE)
[2025-03-08 08:05] LABS: Influenza Virus A Antigen Negative; Influenza Virus B Antigen Negative; Internal Control Within Normal Limits; SARS-CoV-2 Ag NEGATIVE (NEGATIVE)
--- NOTE | 2025-03-08 08:24 | CM.NOTE ---
Rounds made with Dr. Manriquez, pt continues to require oygen @3L NC. Pt complain of increased shortness of breath. No discharge today, pt inpatient status.
--- NOTE | 2025-03-08 09:51 | CM.NOTE ---
Important Message From Medicare discussed with pt, pt verbalizes understanding and signs paper. Original given to pt and copy placed on pt's chart.
[2025-03-08] MEDS: SPIRONOLACTONE 25 MG TABLET PO (10:50)
[2025-03-08] MEDS: ASPIRIN 81 MG TABLET.DR PO (10:51)
[2025-03-08] MEDS: METOPROLOL SUCCINATE 25 MG TAB.ER.24H PO (10:51)
[2025-03-08] MEDS: CITALOPRAM HYDROBROMIDE 20 MG TABLET 40 MG PO (10:52)
[2025-03-08] MEDS: FUROSEMIDE 40 MG TABLET PO (10:53)
[2025-03-08] MEDS: PSYLLIUM SUGAR FREE 5.8 GM POWDER PACKET PO (10:54)
--- NOTE | 2025-03-08 10:54 | CM.NOTE ---
Discussed with pt about PT notes and home care needs at discharge. Pt understands he does not have any PT needs at this time, pt voices he would like services for a nurse to check his BP. Pt's has [facility] services at this time and he would like Case management to send referral to see if they would except. Explained to pt if they were to except it would probably be only for a short time, pt verbalizes understanding. Discussed with pt about purchasing BP cuff for home. Case Management referral, physician notes, CRF, and face sheet sent to [facility] for referral.
[2025-03-08] MEDS: BENZONATATE 100 MG CAPSULE 200 MG PO ×2 (11:04→17:27)
[2025-03-08] MEDS: CEFTRIAXONE 1,000 MG in 0.9 % SODIUM CHLORIDE 50 ML 100 MG IV (11:15)
[2025-03-08] MEDS: AZITHROMYCIN 500 MG in 0.9 % SODIUM CHLORIDE 250 ML 250 MG IV (12:53)
--- NOTE | 2025-03-08 13:58 | CM.NOTE ---
[facility] able to accept pt at discharge. Updated pt. Discussed also with pt regarding consult for housing and nursing home. Pt voices he lives in an apartment complex and does not have concerns regarding a place to live. Pt does voice concerns that in the past there was a leak from the 3rd floor apartment building and concern of black mold. Encouraged pt to discuss his concern with the Landlord, pt does voice they have new people working the desk at apartment complex. Pt does voice that he would be comfortable discussing matter with them, pt states he is just unsure if they will do anything about his concern. Pt will speak with the Landlord for housing concerns of black mold at discharge.
[2025-03-09] VITALS (8 sets, daily range): BP systolic 119–130; BP diastolic 58–80; PULSE 70–83; TEMP 36.4–37.1; O2SAT 91–96
[2025-03-09] MEDS: BENZONATATE 100 MG CAPSULE 200 MG PO ×4 (00:13→23:59)
[2025-03-09] MEDS: METHYLPREDNISOLONE SOD SUCC PF 40 MG/ML VIAL 60 MG IVP ×2 (00:14→05:41)
[2025-03-09] MEDS: IPRATROPIUM/ALBUTEROL SULFATE 3 ML AMPUL.NEB IH ×5 (03:29→22:19)
[2025-03-09 04:07] LABS: Phenobarbital, Serum 18 ug/mL (15-40)
[2025-03-09] MEDS: PHENYTOIN 100 MG 200 MG PO ×3 (05:41→22:04)
[2025-03-09 06:13] LABS: Basophils Percent Auto 0.3 % (0.2-2.0); Eosinophils Percent Auto 0.1 % (0.9-7.0); Hematocrit 40.8 % (42.0-54.0); Hemoglobin 13.4 g/dL (14.0-18.0); Immature Granulocytes Abs Auto 0.08 10^3/uL (0.00-0.03); Immature Granulocytes Pct Auto 0.7 % (0.0-0.5); Lymphocytes Absolute Auto 0.8 10^3/uL (1.2-3.8); Lymphocytes Percent Auto 7.1 % (20.5-60.0); Mean Corpuscular HGB Conc 32.8 g/dL (29.9-35.2); Mean Corpuscular Hemoglobin 32.9 pg (25.9-34.0); Mean Corpuscular Volume 100.2 fL (80.0-94.0); Mean Platelet Volume 10.3 fL (9.5-13.5); Monocytes Absolute Auto 0.4 10^3/uL (0.3-0.8); Monocytes Percent Auto 3.6 % (1.7-12.0); Neutrophils Absolute Auto 10.5 10^3/uL (1.4-6.5); Neutrophils Percent Auto 88.2 % (43.0-75.0); Platelet Count 189 10^3/uL (150-450); Red Blood Count 4.07 10^6/uL (4.70-6.10); White Blood Count 11.9 10^3/uL (4.0-11.0)
[2025-03-09 06:22] LABS: Anion Gap 13.7; BUN Creatinine Ratio 20.2; Calcium 8.6 mg/dL (8.5-10.1); Carbon Dioxide 25.2 mmol/L (21.0-32.0); Chloride 102 mmol/L (98-107); Estimated GFR (African America >60 (>=60 mL/min/1.73m^2); Estimated GFR (Non-African Ame >60 (>=60 mL/min/1.73m^2); Glucose 131 mg/dL (74-106); Potassium 4.9 mmol/L (3.5-5.1); Sodium 136 mmol/L (136-145)
[2025-03-09] MEDS: CITALOPRAM HYDROBROMIDE 20 MG TABLET 40 MG PO (08:38)
[2025-03-09] MEDS: PSYLLIUM SUGAR FREE 5.8 GM POWDER PACKET PO (08:38)
[2025-03-09] MEDS: SPIRONOLACTONE 25 MG TABLET PO (08:38)
[2025-03-09] MEDS: ASPIRIN 81 MG TABLET.DR PO (08:38)
[2025-03-09] MEDS: FUROSEMIDE 40 MG TABLET PO (08:38)
[2025-03-09] MEDS: METOPROLOL SUCCINATE 25 MG TAB.ER.24H PO (08:38)
[2025-03-09] MEDS: CEFTRIAXONE 1,000 MG in 0.9 % SODIUM CHLORIDE 50 ML 100 MG IV (08:39)
[2025-03-09] MEDS: FLUTICASONE PROPIONATE 50 MCG NASAL SPRAY 2 SPRAY NS ×2 (09:19→22:05)
[2025-03-09] MEDS: PHENobarbitaL 32.4 MG TABLET 64.8 MG PO ×3 (09:20→22:04)
[2025-03-09] MEDS: AZITHROMYCIN 500 MG in 0.9 % SODIUM CHLORIDE 250 ML 250 MG IV (09:20)
[2025-03-09] MEDS: GUAIFENESIN 600 MG TAB.ER.12H PO ×2 (11:08→22:04)
[2025-03-09] MEDS: METHYLPREDNISOLONE SOD SUCC PF 40 MG/ML VIAL IVP ×2 (13:42→22:05)
[2025-03-09] MEDS: ACETAMINOPHEN 500 MG TABLET 1000 MG PO (15:49)
--- NOTE | 2025-03-09 16:40 | P.IMPN_ITS ---
Progress Note: A&P Assessment and Plan (1) Acute respiratory failure with hypoxia: Assessment and Plan: Does not use O2 at baseline. Currently on 3 L. Wean off O2 as tolerated. Treat underlying Pneumonia, COPD exacerbation (2) COPD exacerbation: Assessment and Plan: Still wheezing, dyspneic and hypoxic. C/w solumedrol, bronchodilators. (3) Right lower lobe pneumonia: Assessment and Plan: c/w roephin/azithroymcin. Likely bacterial Pna. Negative for influenza. Qualifiers: Pneumonia type: due to unspecified organism Qualified Code(s): J18.9 - Pneumonia, unspecified organism (4) Essential (primary) hypertension: Assessment and Plan: BP stable. C/w home medications. (5) Seizure disorder: Assessment and Plan: Takes Phenobarbital, phenytoin. Seizure free. . Monitor. (6) CAD (coronary artery disease): Assessment and Plan: Non obs CAD on recent LHC. C/w ASA. Qualifiers: Associated angina: with unstable angina Coronary Disease-Associated Artery/Lesion type: [place] artery [place] vs. transplanted heart: [place] heart Qualified Code(s): I25.110 - Atherosclerotic heart disease of [place] coronary artery with unstable angina pectoris (7) HLD (hyperlipidemia): Assessment and Plan: C/w statin Qualifiers: Hyperlipidemia type: unspecified Qualified Code(s): E78.5 - Hyperlipidemia, unspecified Plan Patient still dyspenic, hypoxic. Requires continued inpatient monitoring, treatment. C/w IV steroids, Iv abx, inhaled bronchodilators. Wean off O2 as tolerated. Internal Medicine - PN: Subj Subjective Interval history: Seen and examined. No overnight events. Still short of breath at rest, worse on minimal exertion. Patient with persistent hypoxia, still requiring 3 L O2 via NC. Exam Constitutional Vital Signs, click to edit/add: Last Vital Signs Temp 98.8 F 03/09/25 15:47 Pulse 70 03/09/25 15:47 Resp 20 03/09/25 15:47 BP 130/80 03/09/25 15:47 Pulse Ox 94 L 03/09/25 15:47 O2 Del Method Nasal Cannula 03/09/25 15:47 O2 Flow Rate 2 03/09/25 15:47 Documenting provider has reviewed patient's vital signs: yes Common normals: oriented x3 General appearance: cooperative Other: Appears SOB. Respiratory Common normals: normal respiratory effort Effort & inspection: tachypneic Auscultation: wheezes Other: Conversational dyspnea noted. Cardio Common normals: regular rate, S1 normal heart sound and S2 normal heart sound Rate: regular rate Heart sounds: S1 normal and S2 normal Extremity Common normals: no clubbing, cyanosis or edema Neuro Common normals: oriented x3, moves all extremities and no focal motor deficits Psych Common normals: mental status grossly normal, denies hallucinations, denies homicidal ideation and denies suicidal ideation Internal Medicine - PN: Obj Da Labs Labs: Laboratory Results - last 24 hr 03/08/25 03/09/25 05:32 05:43 WBC 11.9 H RBC 4.07 L Hgb 13.4 L Hct 40.8 L MCV 100.2 H MCH 32.9 MCHC 32.8 RDW 13.0 Plt Count 189 MPV 10.3 Neut % (Auto) 88.2 H Lymph % (Auto) 7.1 L [place] % (Auto) 3.6 Eos % (Auto) 0.1 L Baso % (Auto) 0.3 Neut # (Auto) 10.5 H Lymph # (Auto) 0.8 L [place] # (Auto) 0.4 Eos # (Auto) 0.0 Baso # (Auto) 0.0 Abs Immat Gran (auto) 0.08 H Imm/Tot Granulo (auto) 0.7 H Sodium 136 Potassium 4.9 Chloride 102 Carbon Dioxide 25.2 Anion Gap 13.7 BUN 20.0 H Creatinine 0.99 Est GFR ( Amer) >60 Est GFR (Non-Af Amer) >60 BUN/Creatinine Ratio 20.2 Glucose 131 H Calcium 8.6 Phenobarbital 18
[2025-03-09] MEDS: ATORVASTATIN CALCIUM 10 MG TABLET PO (22:04)
[2025-03-10] VITALS (8 sets, daily range): BP systolic 118–126; BP diastolic 45–79; PULSE 70–74; TEMP 36.4–37.1; O2SAT 91–94
[2025-03-10] MEDS: IPRATROPIUM/ALBUTEROL SULFATE 3 ML AMPUL.NEB IH ×4 (04:08→22:31)
[2025-03-10] MEDS: PHENYTOIN 100 MG 200 MG PO ×3 (05:37→21:11)
[2025-03-10] MEDS: PHENobarbitaL 32.4 MG TABLET 64.8 MG PO ×3 (05:37→21:11)
[2025-03-10] MEDS: METHYLPREDNISOLONE SOD SUCC PF 40 MG/ML VIAL IVP ×3 (05:38→21:12)
[2025-03-10 06:11] LABS: Basophils Percent Auto 0.4 % (0.2-2.0); Eosinophils Absolute Auto 0.2 10^3/uL (0.0-0.7); Eosinophils Percent Auto 1.5 % (0.9-7.0); Hematocrit 41.8 % (42.0-54.0); Hemoglobin 13.7 g/dL (14.0-18.0); Immature Granulocytes Abs Auto 0.06 10^3/uL (0.00-0.03); Immature Granulocytes Pct Auto 0.6 % (0.0-0.5); Lymphocytes Absolute Auto 1.5 10^3/uL (1.2-3.8); Lymphocytes Percent Auto 15.5 % (20.5-60.0); Mean Corpuscular HGB Conc 32.8 g/dL (29.9-35.2); Mean Corpuscular Hemoglobin 33.1 pg (25.9-34.0); Mean Platelet Volume 10.1 fL (9.5-13.5); Monocytes Absolute Auto 0.6 10^3/uL (0.3-0.8); Monocytes Percent Auto 6.3 % (1.7-12.0); Neutrophils Absolute Auto 7.5 10^3/uL (1.4-6.5); Neutrophils Percent Auto 75.7 % (43.0-75.0); Platelet Count 165 10^3/uL (150-450); Red Blood Count 4.14 10^6/uL (4.70-6.10); Red Cell Distribution Width 13.2 % (11.0-15.0); White Blood Count 9.9 10^3/uL (4.0-11.0)
[2025-03-10 06:23] LABS: Anion Gap 10.8; BUN Creatinine Ratio 28.6; Calcium 8.5 mg/dL (8.5-10.1); Carbon Dioxide 26.9 mmol/L (21.0-32.0); Chloride 102 mmol/L (98-107); Estimated GFR (African America >60 (>=60 mL/min/1.73m^2); Estimated GFR (Non-African Ame >60 (>=60 mL/min/1.73m^2); Glucose 109 mg/dL (74-106); Potassium 4.7 mmol/L (3.5-5.1); Sodium 135 mmol/L (136-145)
[2025-03-10] MEDS: BENZONATATE 100 MG CAPSULE 200 MG PO ×3 (08:56→23:03)
[2025-03-10] MEDS: PSYLLIUM SUGAR FREE 5.8 GM POWDER PACKET PO (08:56)
[2025-03-10] MEDS: CITALOPRAM HYDROBROMIDE 20 MG TABLET 40 MG PO (08:57)
[2025-03-10] MEDS: FUROSEMIDE 40 MG TABLET PO ×2 (08:57→21:11)
[2025-03-10] MEDS: SPIRONOLACTONE 25 MG TABLET PO (08:57)
[2025-03-10] MEDS: ASPIRIN 81 MG TABLET.DR PO (08:57)
[2025-03-10] MEDS: METOPROLOL SUCCINATE 25 MG TAB.ER.24H PO (08:57)
[2025-03-10] MEDS: CEFTRIAXONE 1,000 MG in 0.9 % SODIUM CHLORIDE 50 ML 100 MG IV (09:55)
[2025-03-10] MEDS: 0.9 % SODIUM CHLORIDE 250 ML 10 ML IV (09:56)
[2025-03-10] MEDS: FLUTICASONE PROPIONATE 50 MCG NASAL SPRAY 2 SPRAY NS ×2 (10:30→21:15)
[2025-03-10] MEDS: AZITHROMYCIN 500 MG in 0.9 % SODIUM CHLORIDE 250 ML 125 MG IV (10:31)
[2025-03-10] MEDS: GUAIFENESIN 600 MG TAB.ER.12H PO ×2 (10:31→23:03)
--- NOTE | 2025-03-10 18:31 | PM.IMPN1 ---
Progress Note: A&P Assessment and Plan (1) Acute respiratory failure with hypoxia: Assessment and Plan: Improved. Still needing O2 supplementation and reports dyspnea on minimal exertion. Wean off O2 as tolerated. (2) COPD exacerbation: Assessment and Plan: Improved aeration but still hypoxic and dyspneic. C/w current course. (3) Right lower lobe pneumonia: Assessment and Plan: c/w roephin/azithroymcin. Likely bacterial Pna. Negative for influenza. Qualifiers: Pneumonia type: due to unspecified organism Qualified Code(s): J18.9 - Pneumonia, unspecified organism (4) Essential (primary) hypertension: Assessment and Plan: BP stable. C/w home medications. (5) Seizure disorder: Assessment and Plan: Takes Phenobarbital, phenytoin. Seizure free. . Monitor. (6) CAD (coronary artery disease): Assessment and Plan: Non obs CAD on recent LHC. C/w ASA. Qualifiers: Coronary Disease-Associated Artery/Lesion type: [place] artery [place] vs. transplanted heart: cheesh-na heart Associated angina: with unstable angina Qualified Code(s): I25.110 - Atherosclerotic heart disease of [place] coronary artery with unstable angina pectoris (7) HLD (hyperlipidemia): Assessment and Plan: C/w statin Qualifiers: Hyperlipidemia type: unspecified Qualified Code(s): E78.5 - Hyperlipidemia, unspecified Plan Patient still dyspenic, hypoxic. Requires continued inpatient monitoring, treatment. C/w IV steroids, Iv abx, inhaled bronchodilators. Wean off O2 as tolerated. Internal Medicine - PN: Subj Subjective Interval history: Seen and examined. Overall better and feels that her can breath better. However, he is still SOB on exertion and still requiring supplemental oxygen. No overnight events Exam Constitutional Vital Signs, click to edit/add: Last Vital Signs Temp 98.1 F 03/10/25 14:00 Pulse 72 03/10/25 17:19 Resp 20 03/10/25 14:00 BP 120/79 03/10/25 14:00 Pulse Ox 93 L 03/10/25 17:19 O2 Del Method Nasal Cannula 03/10/25 17:19 O2 Flow Rate 1 03/10/25 17:19 Documenting provider has reviewed patient's vital signs: yes Common normals: oriented x3 General appearance: cooperative Respiratory Common normals: normal respiratory effort and no use of accessory muscles Effort & inspection: able to speak in complete sentences Other: Improved aeration and minimal wheezing. Cardio Common normals: regular rate, S1 normal heart sound and S2 normal heart sound Rate: regular rate Heart sounds: S1 normal and S2 normal Extremity Common normals: no clubbing, cyanosis or edema Neuro Common normals: oriented x3, moves all extremities and no focal motor deficits Psych Common normals: mental status grossly normal, denies hallucinations, denies homicidal ideation and denies suicidal ideation Internal Medicine - PN: Obj Da Labs Labs: Laboratory Results - last 24 hr 03/10/25 05:37 WBC 9.9 RBC 4.14 L Hgb 13.7 L Hct 41.8 L MCV 101.0 H MCH 33.1 MCHC 32.8 RDW 13.2 Plt Count 165 MPV 10.1 Neut % (Auto) 75.7 H Lymph % (Auto) 15.5 L [place] % (Auto) 6.3 Eos % (Auto) 1.5 Baso % (Auto) 0.4 Neut # (Auto) 7.5 H Lymph # (Auto) 1.5 [place] # (Auto) 0.6 Eos # (Auto) 0.2 Baso # (Auto) 0.0 Abs Immat Gran (auto) 0.06 H Imm/Tot Granulo (auto) 0.6 H Sodium 135 L Potassium 4.7 Chloride 102 Carbon Dioxide 26.9 Anion Gap 10.8 BUN 24.0 H Creatinine 0.84 Est GFR ( Amer) >60 Est GFR (Non-Af Amer) >60 BUN/Creatinine Ratio 28.6 Glucose 109 H Calcium 8.5
[2025-03-10] MEDS: ATORVASTATIN CALCIUM 10 MG TABLET PO (21:11)
[2025-03-11] MEDS: IPRATROPIUM/ALBUTEROL SULFATE 3 ML AMPUL.NEB IH ×2 (04:57→11:10)
[2025-03-11 05:00] VITALS: PULSE 74; O2SAT 91
[2025-03-11] MEDS: PHENYTOIN 100 MG 200 MG PO ×2 (05:06→13:39)
[2025-03-11] MEDS: PHENobarbitaL 32.4 MG TABLET 64.8 MG PO ×2 (05:06→13:40)
[2025-03-11] MEDS: METHYLPREDNISOLONE SOD SUCC PF 40 MG/ML VIAL IVP ×2 (05:07→13:40)
[2025-03-11 05:14] VITALS: BP 105/63; PULSE 76; TEMP 36.4; O2SAT 91
[2025-03-11 05:58] LABS: Basophils Absolute Auto 0.1 10^3/uL (0.0-0.1); Basophils Percent Auto 0.6 % (0.2-2.0); Eosinophils Absolute Auto 0.2 10^3/uL (0.0-0.7); Eosinophils Percent Auto 1.8 % (0.9-7.0); Hematocrit 41.4 % (42.0-54.0); Hemoglobin 13.7 g/dL (14.0-18.0); Immature Granulocytes Abs Auto 0.05 10^3/uL (0.00-0.03); Immature Granulocytes Pct Auto 0.5 % (0.0-0.5); Lymphocytes Absolute Auto 1.8 10^3/uL (1.2-3.8); Lymphocytes Percent Auto 18.4 % (20.5-60.0); Mean Corpuscular HGB Conc 33.1 g/dL (29.9-35.2); Mean Corpuscular Hemoglobin 33.2 pg (25.9-34.0); Mean Corpuscular Volume 100.2 fL (80.0-94.0); Monocytes Absolute Auto 0.8 10^3/uL (0.3-0.8); Monocytes Percent Auto 7.9 % (1.7-12.0); Neutrophils Absolute Auto 7.1 10^3/uL (1.4-6.5); Neutrophils Percent Auto 70.8 % (43.0-75.0); Platelet Count 183 10^3/uL (150-450); Red Blood Count 4.13 10^6/uL (4.70-6.10)
[2025-03-11 06:10] LABS: Anion Gap 13.2; BUN Creatinine Ratio 29.3; Calcium 8.5 mg/dL (8.5-10.1); Carbon Dioxide 28.1 mmol/L (21.0-32.0); Chloride 100 mmol/L (98-107); Estimated GFR (African America >60 (>=60 mL/min/1.73m^2); Estimated GFR (Non-African Ame >60 (>=60 mL/min/1.73m^2); Glucose 104 mg/dL (74-106); Potassium 4.3 mmol/L (3.5-5.1); Sodium 137 mmol/L (136-145)
[2025-03-11] MEDS: CITALOPRAM HYDROBROMIDE 20 MG TABLET 40 MG PO (08:30)
[2025-03-11] MEDS: METOPROLOL SUCCINATE 25 MG TAB.ER.24H PO (08:30)
[2025-03-11] MEDS: ASPIRIN 81 MG TABLET.DR PO (08:30)
[2025-03-11] MEDS: CEFTRIAXONE 1,000 MG in 0.9 % SODIUM CHLORIDE 50 ML 100 MG IV (08:30)
[2025-03-11] MEDS: FUROSEMIDE 40 MG TABLET PO (08:30)
[2025-03-11] MEDS: BENZONATATE 100 MG CAPSULE 200 MG PO (08:30)
[2025-03-11] MEDS: PSYLLIUM SUGAR FREE 5.8 GM POWDER PACKET PO (08:30)
[2025-03-11] MEDS: SPIRONOLACTONE 25 MG TABLET PO (08:30)
[2025-03-11] MEDS: FLUTICASONE PROPIONATE 50 MCG NASAL SPRAY 2 SPRAY NS (08:34)
[2025-03-11] MEDS: GUAIFENESIN 600 MG TAB.ER.12H PO (08:34)
[2025-03-11 08:40] VITALS: BP 114/64; PULSE 78; O2SAT 91
[2025-03-11] MEDS: AZITHROMYCIN 500 MG in 0.9 % SODIUM CHLORIDE 250 ML 125 MG IV (09:13)
--- NOTE | 2025-03-11 09:32 | SWNOTE1 ---
SW received a message from case management and pt will discharge on home oxygen. SW to find out what company.
--- NOTE | 2025-03-11 09:58 | PM.DS1 ---
DS: Providers Provider Date of admission: 03/07/25 23:14 Primary care physician: Jignesh Manjarrez MD Admitting clinician: Anson Manriquez Attending physician on admission: Anson Manriquez Consults: 03/07/25 Consult to Remodeler Routine Reason for consult:: Housing/Long Term 03/08/25 06:22 Consult to Pharmacy Routine Consulting Provider: Reason for consultation: Please [place] me when Med Rec is Updated Has provider been notified: No Occupational Therapy Eval and Treat Routine Reason for consultation: Only if needed for Rehab Has provider been notified: No Physical Therapy Eval and Treat Routine Reason for consultation: Eval and Treat Has provider been notified: No Attending physician on discharge: Shaikh Florentin Discharging clinician: Shaikh Florentin Anticipated date of discharge: 03/11/25 DS: Diagnosis Discharge Diagnosis (1) Acute respiratory failure with hypoxia: (2) COPD exacerbation: (3) Right lower lobe pneumonia: Qualifiers: Pneumonia type: due to unspecified organism Qualified Code(s): J18.9 - Pneumonia, unspecified organism (4) Essential (primary) hypertension: (5) Seizure disorder: (6) CAD (coronary artery disease): Qualifiers: Coronary Disease-Associated Artery/Lesion type: [place] artery [place] vs. transplanted heart: [place] heart Associated angina: with unstable angina Qualified Code(s): I25.110 - Atherosclerotic heart disease of [place] shosh[place] coronary artery with unstable angina pectoris (7) HLD (hyperlipidemia): Qualifiers: Hyperlipidemia type: unspecified Qualified Code(s): E78.5 - Hyperlipidemia, unspecified DS: Summary Hospital Course Hospital Course: 78-year-old male presented with shortness of breath to ED and was found to have hypoxia secondary to COPD exacerbation and right lower lobe pneumonia. Patient was admitted and started on IV Rocephin/azithromycin along with systemic steroids and inhaled bronchodilators. He tested negative for influenza, RSV and COVID. Patient clinically improved during the course of admission however was still hypoxic on day of discharge but clinically considerably better. I discussed with the patient about oxygen use at home. We ordered a 6-minute walk test for him to determine his home O2 requirement. Once is done, we will set him up for home oxygen. He is otherwise medically stable for discharge on oral cefdinir, prednisone taper. He was educated on worrisome signs and symptoms and was instructed to return to ED if he develops worsening shortness of breath, cough, hypoxia. Patient was also instructed to follow-up with PCP in 1 to 2 weeks. Status at Discharge Functional status at discharge: independent ambulation Overall status at discharge: patient is back to baseline Time Spent with Patient Time attestation: Total time spent providing and/or coordinating discharge services: Time spent: greater than 30 minutes Exam Constitutional Vital Signs, click to edit/add: Last Vital Signs Temp 97.6 F 03/11/25 05:14 Pulse 78 03/11/25 08:40 Resp 18 03/11/25 08:40 BP 114/64 03/11/25 08:40 Pulse Ox 91 L 03/11/25 08:40 O2 Del Method Nasal Cannula 03/11/25 08:40 O2 Flow Rate 1 03/11/25 08:40 Documenting provider has reviewed patient's vital signs: yes Common normals: oriented x3 General appearance: cooperative Respiratory Common normals: normal respiratory effort and no use of accessory muscles Effort & inspection: able to speak in complete sentences Other: Improved aeration and minimal wheezing. Cardio Common normals: regular rate, S1 normal heart sound and S2 normal heart sound Rate: regular rate Heart sounds: S1 normal and S2 normal Extremity Common normals: no clubbing, cyanosis or edema Neuro Common normals: oriented x3, moves all extremities and no focal motor deficits Psych Common normals: mental status grossly normal, denies hallucinations, denies homicidal ideation and denies suicidal ideation DS: Data Data Completed and Pending Labs on day of discharge: Labs from last 24 hours 03/11/25 05:39 WBC 10.0 RBC 4.13 L Hgb 13.7 L Hct 41.4 L MCV 100.2 H MCH 33.2 MCHC 33.1 RDW 13.0 Plt Count 183 MPV 10.0 Neut % (Auto) 70.8 Lymph % (Auto) 18.4 L [place] % (Auto) 7.9 Eos % (Auto) 1.8 Baso % (Auto) 0.6 Neut # (Auto) 7.1 H Lymph # (Auto) 1.8 [place] # (Auto) 0.8 Eos # (Auto) 0.2 Baso # (Auto) 0.1 Abs Immat Gran (auto) 0.05 H Imm/Tot Granulo (auto) 0.5 Sodium 137 Potassium 4.3 Chloride 100 Carbon Dioxide 28.1 Anion Gap 13.2 BUN 27.0 H Creatinine 0.92 Est GFR ( Amer) >60 Est GFR (Non-Af Amer) >60 BUN/Creatinine Ratio 29.3 Glucose 104 Calcium 8.5 Preliminary micro results at discharge 03/08/25 08:00 Lower Respiratory Culture - Preliminary Sputum - Expectorated Sputum Discharge Plan Discharge Disposition: Home, Self-Care Condition: Fair Discharge Medications: New cefdinir 300 mg capsule 300 mg PO BID 5 Days Qty: 10 0RF prednisone 20 mg tablet 20 mg PO DAILY Qty: 20 0RF Rx Instructions: take 3 tabs daily x 3 days, 2 tablets daily x 3 days, 1 tab daily x 3 days, 1/2 tab x 4 days Continued furosemide 40 mg tablet 40 mg PO DAILY nitroglycerin 0.3 mg tablet, sublingual 0.3 mg sublingual Q5M PRN (Reason: chest pain) psyllium husk [Daily Fiber] 0.4 gram capsule 0.4 g PO DAILY aspirin [Adult Low Dose Aspirin] 81 mg tablet,delayed release (DR/EC) 81 mg PO DAILY atorvastatin 10 mg tablet 10 mg PO .hs citalopram 40 mg tablet 40 mg PO DAILY meclizine 25 mg tablet 25 mg PO QID PRN (Reason: dizziness) phenobarbital 32.4 mg tablet 64.8 mg PO Q8H phenytoin sodium extended 100 mg capsule 200 mg PO TID spironolactone 25 mg tablet 25 mg PO DAILY metoprolol succinate 25 mg tablet extended release 24 hr 25 mg PO DAILY albuterol sulfate 90 mcg/actuation HFA aerosol inhaler 2 inh INHALATION Q4H PRN (Reason: shortness of breath or wheezing) fluticasone propionate 50 mcg/actuation spray,suspension 2 spray INTRANASAL Q12H Activity: increase activity as tolerated Diet: advance to your usual diet Print Language: Spanish 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 Manjarrez [phone]
--- NOTE | 2025-03-11 10:05 | CM.NOTE ---
Rounds made with Dr. Lerma, pt will have walk test for home oxygen. Pt will discharge to home today with [facility]. Pt will f/u with PCP.
[2025-03-11 10:24] VITALS: O2SAT 88; O2SAT 91; O2SAT 92
--- NOTE | 2025-03-11 10:33 | CM.NOTE ---
Pt inquiring about a home nebulizer machine, Dr. Lerma explained that pt could speak with his primary care doctor regarding a nebulizer. Pt discharge medications will not require pt to have nebulizer machine at this time.
--- NOTE | 2025-03-11 10:37 | CM.NOTE ---
2nd Important Message From Medicare discussed with pt, pt denies questions or concerns.
--- NOTE | 2025-03-11 10:54 | SWNOTE1 ---
Pt will be discharged today on 1 liter of home oxygen and with [facility]. DINA spoke with pt and he gets his cpap from [facility] and would like to use them. DINA faxed over oxygen script, face sheet, walk test, H&P, and dc summary to [facility].
[2025-03-11 11:11] VITALS: PULSE 75; O2SAT 92
--- NOTE | 2025-03-11 11:18 | SWNOTE1 ---
DINA faxed dc med rec, dc summary, CRF, and physician note from Tuesday to [facility].
--- NOTE | 2025-03-11 13:17 | SWNOTE1 ---
SW called [facility] to check on status of oxygen, no answer. SW attempted 3x and left a message.
--- NOTE | 2025-03-11 13:48 | SWNOTE1 ---
DINA called [facility] again and spoke to Rebeca. She has submitted to insurance, but has not heard back yet. She stated she will call once she hears back.
--- NOTE | 2025-03-11 14:40 | SWNOTE1 ---
DINA received a call from Rebeca at [facility] and they have received auth from insurance and pt can be discharged home with oxygen. DINA took tank to pt's room. DINA advised pt to call [facility] once he is on way or arrives home. DINA provided phone number. DINA let pt know they will then deliver the rest of equipment to the home. Pt voiced understanding. DINA has already sent dc information to [facility].
--- NOTE | 2025-03-11 15:58 | NUTR.NU ---
Pt was admitted 03/07/25 w/dx PNA, ARF, COPD, HTN, chest pain, and injuries d/t fall. PO intakes of Heart Healthy diet have been consistently good and appear to meet pt?s estimated nutrient requirements. Encourage pt to limit salt and fat in his daily diet.
--- NOTE | 2025-03-12 14:18 | CM.DCFOLLOWU ---
Person spoke with:patient How are you feeling?well, taking it easy How is your pain?none Did you understand your discharge instructions?yes Do you have any questions about your discharge instructions?no Were you given any prescriptions at discharge?yes Were you able to get your prescriptions filled?yes Do you understand how to take your medications as ordered?yes Do you have any questions about your follow up appointment and do you plan to keep your follow up appointment?no questions, follow up reviewed Is there anything else that you would like to discuss?no Questions/Comments/Concerns/Other: He appreciated everyone's care at the hospital
== END 2025-03-11 15:41 | disposition home health service (06) | DRG 193 ==
LOC: ER 21:46 → MS 23:18
PROVIDERS: Physician Assistant; Registered Nurse; Admitting Provider Family Medicine; Emergency Provider Emergency Medicine; PCP Family Medicine; Visit Provider Internal Medicine
DX: J18.9 Pneumonia, unspecified organism (principal); J96.01 Acute respiratory failure with hypoxia; J44.1 Chronic obstructive pulmonary disease with (acute) exacerbation; I25.110 Atherosclerotic heart disease of native coronary artery with unstable angina pectoris; C38.3 Malignant neoplasm of mediastinum, part unspecified; E44.1 Mild protein-calorie malnutrition; Z68.41 Body mass index [BMI] 40.0-44.9, adult; J44.0 Chronic obstructive pulmonary disease with (acute) lower respiratory infection; Z87.891 Personal history of nicotine dependence; G40.909 Epilepsy, unspecified, not intractable, without status epilepticus; I10 Essential (primary) hypertension; D50.9 Iron deficiency anemia, unspecified; F32.A Depression, unspecified; C67.9 Malignant neoplasm of bladder, unspecified; Z90.49 Acquired absence of other specified parts of digestive tract; Z79.82 Long term (current) use of aspirin; Z79.899 Other long term (current) drug therapy; E78.5 Hyperlipidemia, unspecified; Z99.81 Dependence on supplemental oxygen
CPT/HCPCS: 36415; 71045; 71046; 80048; 80053; 80184; 80185; 83735; 83880; 84484; 85025; 85027; 85610; 85730; 87070; 87205; 87420; 87804; 87811; 93005; 94640; 94667; 94668; 94761; 97161; 97165; 99285; J0456; J0696; J2919

== ENCOUNTER 2025-03-19 15:41 | Emergency (ER) | payer MEDICARE, MEDICAID, SELFPAY ==
[2025-03-19] VITALS (11 sets, daily range): BP systolic 128–152; BP diastolic 59–85; PULSE 68–76; TEMP 36.8; O2SAT 91–96; BMI 38.9
--- NOTE | 2025-03-19 16:03 | ECG_ITS ---
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 Measurements Intervals [place] Rate: 73 P: 41 MN: 186 QRS: 17 QRSD: 84 T: 58 QT: 384 QTc: 409 Interpretive Statements 1100 Sinus rhythm 9110 normal ECG Compared to ECG 03/07/2025 20:12:58 No significant changes Electronically Signed On 03-19-2025 18:45:38 EDT by COLE MOREIRA M.D.
[2025-03-19 16:35] LABS: Basophils Absolute Auto 0.1 10^3/uL (0.0-0.1); Basophils Percent Auto 0.6 % (0.2-2.0); Eosinophils Absolute Auto 0.2 10^3/uL (0.0-0.7); Eosinophils Percent Auto 1.4 % (0.9-7.0); Hematocrit 39.7 % (42.0-54.0); Hemoglobin 13.4 g/dL (14.0-18.0); Immature Granulocytes Abs Auto 0.08 10^3/uL (0.00-0.03); Immature Granulocytes Pct Auto 0.7 % (0.0-0.5); Lymphocytes Absolute Auto 1.4 10^3/uL (1.2-3.8); Lymphocytes Percent Auto 12.8 % (20.5-60.0); Mean Corpuscular HGB Conc 33.8 g/dL (29.9-35.2); Mean Corpuscular Hemoglobin 33.5 pg (25.9-34.0); Mean Corpuscular Volume 99.3 fL (80.0-94.0); Monocytes Absolute Auto 0.7 10^3/uL (0.3-0.8); Monocytes Percent Auto 6.4 % (1.7-12.0); Neutrophils Absolute Auto 8.4 10^3/uL (1.4-6.5); Neutrophils Percent Auto 78.1 % (43.0-75.0); Platelet Count 179 10^3/uL (150-450); Red Cell Distribution Width 12.8 % (11.0-15.0); White Blood Count 10.8 10^3/uL (4.0-11.0)
[2025-03-19 16:55] LABS: Alanine Aminotransferase 33 U/L (16-63); Albumin Globulin Ratio 0.6; Albumin Level 2.8 g/dL (3.4-5.0); Alkaline Phosphatase 139 U/L (46-116); Anion Gap 10.5; Aspartate Amino Transferase 15 U/L (15-37); BUN Creatinine Ratio 14.6; Bilirubin Total 0.2 mg/dL (0.2-1.0); Calcium 8.2 mg/dL (8.5-10.1); Carbon Dioxide 28.5 mmol/L (21.0-32.0); Chloride 102 mmol/L (98-107); Estimated GFR (African America 59 (>=60 mL/min/1.73m^2); Estimated GFR (Non-African Ame 48 (>=60 mL/min/1.73m^2); Globulin 4.9 g/dL; Glucose 141 mg/dL (74-106); Sodium 137 mmol/L (136-145); Total Protein 7.7 g/dL (6.4-8.2); Troponin I High Sensitivity 4.6 pg/mL (4.0-76.1)
--- NOTE | 2025-03-19 17:28 | ED.SOB1 ---
HPI - SOB/Dyspnea General Chief Complaint: Shortness of Breath/Dyspnea Stated Complaint: SOB Time Seen by Provider: 03/19/25 16:03 Source: patient Mode of arrival: ambulance History of Present Illness HPI Narrative: The patient is a 70 years old who was discharged recently in oxygen after he was diagnosed with pneumonia the patient is a coming to the ER after his home health care nurse noted that he has been short of breath, the patient right now is saturating 93% on room air he did mention shortness of breath but he denies nausea vomiting or any other concerns No chest pain at any time no leg swelling Related Data Home Medications ?Medication ?Instructions ?Recorded ?Confirmed atorvastatin 10 mg tablet 10 mg PO .hs 05/12/23 03/19/25 citalopram 40 mg tablet 40 mg PO DAILY 05/12/23 03/19/25 meclizine 25 mg tablet 25 mg PO QID PRN dizziness 05/12/23 03/19/25 phenobarbital 32.4 mg tablet 64.8 mg PO Q8H 05/12/23 03/19/25 phenytoin sodium extended 100 mg 200 mg PO TID 05/12/23 03/19/25 capsule furosemide 40 mg tablet 40 mg PO DAILY edema 05/24/24 03/19/25 nitroglycerin 0.3 mg sublingual 0.3 mg sublingual Q5M PRN chest 05/24/24 03/07/25 tablet pain psyllium husk 0.4 gram capsule 0.4 g PO DAILY 12/04/24 03/19/25 (Daily Fiber) aspirin 81 mg tablet,delayed 81 mg PO DAILY 01/09/25 03/19/25 release (Adult Low Dose Aspirin) albuterol sulfate 90 mcg/actuation 2 inh inhalation Q4H PRN shortness 02/21/25 03/19/25 aerosol inhaler of breath or wheezing fluticasone propionate 50 2 spray intranasal Q12H 02/21/25 03/19/25 mcg/actuation nasal spray,suspension metoprolol succinate 25 mg 25 mg PO DAILY 02/21/25 03/19/25 tablet,extended release 24 hr spironolactone 25 mg tablet 25 mg PO DAILY 02/21/25 03/19/25 isosorbide mononitrate 30 mg 30 mg PO DAILY 03/19/25 03/19/25 tablet,extended release 24 hr losartan 25 mg tablet 25 mg PO DAILY 03/19/25 03/19/25 Allergies Allergy/AdvReac Type Severity Reaction Status Date / Time oxycodone (From OxyContin) Allergy Severe Anaphylaxis Verified 03/19/25 15:45 gabapentin Allergy Unknown Unknown Verified 03/19/25 15:45 Review of Systems ROS Status of ROS 10 or more systems reviewed and unremarkable except as noted in history and below [facility] Medical History (Updated 03/19/25 @ 18:09 by Jolie Manning MD) Right lower lobe pneumonia ?J18.9 - Pneumonia, unspecified organism (ICD-10) Essential (primary) hypertension ?I10 - Essential (primary) hypertension (ICD-10) Seizure disorder ?G40.909 - Epilepsy, unspecified, not intractable, without status epilepticus (ICD-10) CAD (coronary artery disease) ?I25.10 - Atherosclerotic heart disease of [place] coronary artery without angina pectoris (ICD-10) Cervical vertebral fusion ?M43.22 - Fusion of spine, cervical region (ICD-10) Lipoma of axilla ?D17.20 - Benign lipomatous neoplasm of skin and subcutaneous tissue of unspecified limb (ICD-10) Rupture, tendon, Achilles ?S86.019A - Strain of unspecified Achilles tendon, initial encounter (ICD-10) Syncope ?R55 - Syncope and collapse (ICD-10) Seizure ?R56.9 - Unspecified convulsions (ICD-10) Malignant neoplasm of mediastinum ?C38.3 - Malignant neoplasm of mediastinum, part unspecified (ICD-10) Depression ?F32.A - Depression, unspecified (ICD-10) Dyslipidemia ?E78.5 - Hyperlipidemia, unspecified (ICD-10) Deviated nasal septum ?J34.2 - Deviated nasal septum (ICD-10) Degenerative lumbar spinal stenosis ?M48.061 - Spinal stenosis, lumbar region without neurogenic claudication (ICD-10) 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 - Drug-induced polyneuropathy (ICD-10) ?T45.1X5A - Adverse effect of antineoplastic and immunosuppressive drugs, initial encounter (ICD-10) CAD, multiple vessel ?I25.10 - Atherosclerotic heart disease of [place] coronary artery without angina pectoris (ICD-10) 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 - Malignant neoplasm of mediastinum, part unspecified (ICD-10) Bladder cancer ?C67.9 - Malignant neoplasm of bladder, unspecified (ICD-10) HLD (hyperlipidemia) ?E78.5 - Hyperlipidemia, unspecified (ICD-10) Chest pain ?R07.9 - Chest pain, unspecified (ICD-10) Surgical History History of cataract surgery ?Z98.49 - Cataract extraction status, unspecified eye (ICD-10) History of foot surgery ?Z98.890 - Other specified postprocedural states (ICD-10) History of esophagogastroduodenoscopy (EGD) ?Z98.890 - Other specified postprocedural states (ICD-10) History of colonoscopy ?Z98.890 - Other specified postprocedural states (ICD-10) History of neck surgery ?Z98.890 - Other specified postprocedural states (ICD-10) H/O shoulder surgery ?Z98.890 - Other specified postprocedural states (ICD-10) History of cholecystectomy ?Z90.49 - Acquired absence of other specified parts of digestive tract (ICD-10) Family History Father Family history of myocardial infarction Sister Family history of cancer Other Family history of coronary artery disease Family history of diabetes mellitus Family history of gastric cancer Family history of heart disease Family history of hypertension Family history of kidney cancer Family history of stroke Social History Within the past year, how often did you have a drink containing alcohol: never Score interpretation: A score less than 4 is consistent with normal alcohol consumption. Smoking status: Former smoker Non-prescribed substance use: denies use Previous occupational history: retired Highest level of school completed/degree received: Associate degree: academic program Are you now , , , , never or living with a partner: In a typical week, how many times do you talk on the telephone with family, friends, or neighbors: 3 or more times per week How often do you get together with friends or relatives: 3 or more times per week Little interest or pleasure in doing things: not at all Feeling down, depressed, or hopeless: not at all Feel stressed/tense/nervous/anxious/difficulty sleeping: to some extent Life stressors: other Life stressor details: health Gender Identity: male Exam Narrative Exam Narrative: Nurses notes and vital signs reviewed and patient is not hypoxic. General: Well-appearing and in no apparent distress. Skin: Warm, dry, no pallor noted. No rash. Head: Normocephalic, atraumatic. Neck: Supple, non-tender. Eye: Pupils are equal, round and EOMI. No scleral icterus. Ears, Nose, Mouth, and Throat: TM are clear, no nasal mucosal hypertrophy. Oral mucosa is moist, no posterior oropharynx erythema, uvula is mid-line Cardiovascular: Regular Rate and Rhythm without murmur, gallop or rub. Respiratory: No accessory muscle use or respiratory distress. Lungs are clear to auscultation, no wheezing, rales or rhonchi Chest Wall: no tenderness Back: No midline thoracic or lumbar vertebral tenderness. No CVA tenderness Musculoskeletal: normal ROM, no calf or popliteal tenderness, no lower extremity edema/swelling GI: Abdomen is soft, non-distended. Normal bowel sounds. No masses appreciated. No tenderness to palpation. No rebound, guarding, or rigidity noted. Neurological: A&O x4. No cranial nerve dysfunction observed. No truncal ataxia. Moves all extremities. Sensation intact. Psychiatric: Cooperative and interactive. Normal mood and affect. Constitutional Vital Signs, click to edit/add: Last Vital Signs Temp 98.2 F 03/19/25 15:45 Pulse 73 03/19/25 18:00 Resp 17 03/19/25 18:00 BP 152/83 H 03/19/25 18:06 Pulse Ox 96 03/19/25 18:00 O2 Del Method Room Air 03/19/25 15:45 Course Vital Signs Vital signs: Vital Signs Pulse Rate 75 03/19/25 15:44 Temperature 98.2 F 03/19/25 15:45 Pulse Rate 73 03/19/25 18:00 Respiratory Rate 17 03/19/25 18:00 Blood Pressure 152/83 H 03/19/25 18:06 Pulse Oximetry 96 03/19/25 18:00 Oxygen Delivery Method Room Air 03/19/25 15:45 MDM - SOB/Dyspnea MDM Narrative Medical decision making narrative: The patient EKG in the ER was showing sinus rhythm with a heart rate [address] elevation or depression CBC and chemistry otherwise showed no acute pathology with a negative troponin Chest x-ray shows mild vascular congestion The patient was not in any distress at any time I could not hear any wheezing on auscultation of the lung but he does have distant breathing sound he is just to continue using his inhaler as directed He was provided with 1 breathing treatment here in the ER and also instructed to take Lasix for the next 3 days twice a day instead of once a day Patient to come back in case any new symptoms or concerns and to follow-up with his primary care as outpatient The patient plan was discussed with him as well as his The patient is to follow up with primary care physician in next 2-3 days or to return to the emergency department should any of the signs or symptoms worsen or new symptoms develop. The patient agrees with the following Diagnosis and Treatment plan and the patient will be discharged home. Lab Data Labs: Lab Results 03/19/25 Range/Units 16:24 WBC 10.8 (4.0-11.0) 10^3/uL RBC 4.00 L (4.70-6.10) 10^6/uL Hgb 13.4 L (14.0-18.0) g/dL Hct 39.7 L (42.0-54.0) % MCV 99.3 H (80.0-94.0) fL MCH 33.5 (25.9-34.0) pg MCHC 33.8 (29.9-35.2) g/dL RDW 12.8 (11.0-15.0) % Plt Count 179 (150-450) 10^3/uL MPV 10.0 (9.5-13.5) fL Neut % (Auto) 78.1 H (43.0-75.0) % Lymph % (Auto) 12.8 L (20.5-60.0) % [place] % (Auto) 6.4 (1.7-12.0) % Eos % (Auto) 1.4 (0.9-7.0) % Baso % (Auto) 0.6 (0.2-2.0) % Neut # (Auto) 8.4 H (1.4-6.5) 10^3/uL Lymph # (Auto) 1.4 (1.2-3.8) 10^3/uL [place] # (Auto) 0.7 (0.3-0.8) 10^3/uL Eos # (Auto) 0.2 (0.0-0.7) 10^3/uL Baso # (Auto) 0.1 (0.0-0.1) 10^3/uL Abs Immat Gran (auto) 0.08 H (0.00-0.03) 10^3/uL Imm/Tot Granulo (auto) 0.7 H (0.0-0.5) % Sodium 137 (136-145) mmol/L Potassium 4.0 (3.5-5.1) mmol/L Chloride 102 (98-107) mmol/L Carbon Dioxide 28.5 (21.0-32.0) mmol/L Anion Gap 10.5 BUN 21.0 H (7.0-18.0) mg/dL Creatinine 1.44 H (0.70-1.30) mg/dL Est GFR ( Amer) 59 L (>=60 mL/min/1.73m^2) Est GFR (Non-Af Amer) 48 L (>=60 mL/min/1.73m^2) BUN/Creatinine Ratio 14.6 Glucose 141 H (74-106) mg/dL Calcium 8.2 L (8.5-10.1) mg/dL Total Bilirubin 0.2 (0.2-1.0) mg/dL AST 15 (15-37) U/L ALT 33 (16-63) U/L Alkaline Phosphatase 139 H (46-116) U/L Troponin I High Sens 4.6 (4.0-76.1) pg/mL NT-Pro-B Natriuret Pep 122.0 (<=900.0) pg/mL Total Protein 7.7 (6.4-8.2) g/dL Albumin 2.8 L (3.4-5.0) g/dL Globulin 4.9 g/dL Albumin/Globulin Ratio 0.6 Discharge Plan Discharge Chief Complaint: Shortness of Breath/Dyspnea Clinical Impression: Breath shortness, Pulmonary vascular congestion Patient Disposition: Home, Self-Care Time of Disposition Decision: 18:32 Condition: Good Prescriptions / Home Meds: No Action furosemide 40 mg tablet 40 mg PO DAILY nitroglycerin 0.3 mg tablet, sublingual 0.3 mg sublingual Q5M PRN (Reason: chest pain) psyllium husk [Daily Fiber] 0.4 gram capsule 0.4 g PO DAILY aspirin [Adult Low Dose Aspirin] 81 mg tablet,delayed release (DR/EC) 81 mg PO DAILY isosorbide mononitrate 30 mg tablet extended release 24 hr 30 mg PO DAILY losartan 25 mg tablet 25 mg PO DAILY atorvastatin 10 mg tablet 10 mg PO .hs citalopram 40 mg tablet 40 mg PO DAILY meclizine 25 mg tablet 25 mg PO QID PRN (Reason: dizziness) phenobarbital 32.4 mg tablet 64.8 mg PO Q8H phenytoin sodium extended 100 mg capsule 200 mg PO TID spironolactone 25 mg tablet 25 mg PO DAILY metoprolol succinate 25 mg tablet extended release 24 hr 25 mg PO DAILY albuterol sulfate 90 mcg/actuation HFA aerosol inhaler 2 inh INHALATION Q4H PRN (Reason: shortness of breath or wheezing) fluticasone propionate 50 mcg/actuation spray,suspension 2 spray INTRANASAL Q12H Print Language: [place] Instructions: Shortness of Breath (ED) Additional Instructions: for the next days take lasix 40 mg bid for 2 days then go back to once daily Referrals: Jignesh Manjarrez MD [Primary Care Provider, Family Practice] - 1 week
[2025-03-19] MEDS: FUROSEMIDE 20 MG/2 ML VIAL IVP (18:06)
[2025-03-19] MEDS: IPRATROPIUM/ALBUTEROL SULFATE 3 ML AMPUL.NEB IH (18:55)
== END 2025-03-19 19:19 | disposition home or self-care (01) ==
PROVIDERS: Emergency Provider Emergency Medicine; PCP Family Medicine
DX: R06.02 Shortness of breath (principal); R09.89 Other specified symptoms and signs involving the circulatory and respiratory systems; Z87.01 Personal history of pneumonia (recurrent); Z90.49 Acquired absence of other specified parts of digestive tract; Z87.891 Personal history of nicotine dependence
CPT/HCPCS: 36415; 71045; 80053; 83880; 84484; 85025; 93005; 94640; 99285; J1938

== ENCOUNTER 2025-03-24 19:56 | Inpatient (IN) | payer MEDICARE, MEDICAID, SELFPAY ==
[2025-03-24] VITALS (17 sets, daily range): BP systolic 122–144; BP diastolic 66–86; PULSE 62–81; TEMP 36.2–36.7; O2SAT 90–96; BMI 40.1; BMI 41.2
--- NOTE | 2025-03-24 20:02 | ED.SOB1 ---
HPI - SOB/Dyspnea General Chief Complaint: Shortness of Breath/Dyspnea Stated Complaint: Shortness of Breath Time Seen by Provider: 03/24/25 19:57 Source: patient Mode of arrival: ambulance History of Present Illness HPI Narrative: The patient is a 70-year-old male with a known past medical history of COPD, pulmonary vascular congestion, pneumonia, and oxygen dependence who presents to the emergency department via EMS secondary to shortness of breath. Shortness of breath is gradually worsened over the last couple of days. Over the last month however the patient has been having some pulmonary issues. Patient states that he was admitted to the hospital for pneumonia and was discharged about 2 weeks ago. Since then the patient has remained on oxygen via nasal cannula. Patient stated about a week ago he came to the emergency department and was diagnosed with having excess fluid . He states he gave him a dose of Lasix and then he felt better. Since then the patient has gradually worsening shortness of breath. Since being discharged, he has not been able to see his primary medical physician but states he does have a follow-up appointment on April 02. The patient stated that he has not had any fever or chills. He does not have any myalgias. He states that he does have shortness of breath with wheezing. He does not have a nebulizer but does have a handheld inhaler which he estimates he is used 3-4 times today. Denies any sick contacts or recent travel. Exerting himself makes it worse. Nothing makes it better. He does indicate to me that he has a pressure-like sensation in the right side of his chest. Unknown what makes it worse. Nothing makes it better. No radiation of the pain. He is not nauseous with it. No diaphoresis. Does have a history of coronary artery disease. Related Data Home Medications ?Medication ?Instructions ?Recorded ?Confirmed atorvastatin 10 mg tablet 10 mg PO .hs 05/12/23 03/24/25 citalopram 40 mg tablet 40 mg PO DAILY 05/12/23 03/24/25 phenytoin sodium extended 100 mg 200 mg PO TID 05/12/23 03/24/25 capsule furosemide 40 mg tablet 40 mg PO DAILY edema 05/24/24 03/24/25 nitroglycerin 0.3 mg sublingual 0.3 mg sublingual Q5M PRN chest 05/24/24 03/24/25 tablet pain psyllium husk 0.4 gram capsule 0.4 g PO DAILY 12/04/24 03/24/25 (Daily Fiber) aspirin 81 mg tablet,delayed 81 mg PO DAILY 01/09/25 03/24/25 release (Adult Low Dose Aspirin) albuterol sulfate 90 mcg/actuation 2 inh inhalation Q4H PRN shortness 02/21/25 03/24/25 aerosol inhaler of breath or wheezing fluticasone propionate 50 2 spray intranasal Q12H 02/21/25 03/24/25 mcg/actuation nasal spray,suspension metoprolol succinate 25 mg 25 mg PO DAILY 02/21/25 03/24/25 tablet,extended release 24 hr spironolactone 25 mg tablet 25 mg PO DAILY 02/21/25 03/24/25 phenobarbital 32.4 mg tablet 64.8 mg PO TID 03/24/25 03/24/25 triamcinolone acetonide 0.5 % 1 applic topical TID 03/24/25 03/24/25 topical cream Allergies Allergy/AdvReac Type Severity Reaction Status Date / Time oxycodone (From OxyContin) Allergy Severe Anaphylaxis Verified 03/19/25 15:45 gabapentin Allergy Unknown Unknown Verified 03/19/25 15:45 Review of Systems ROS Narrative 10 Systems were reviewed, and unless noted in the HPI, all other systems are reviewed, unremarkable, or noncontributory. [facility] Medical History Right lower lobe pneumonia ?J18.9 - Pneumonia, unspecified organism (ICD-10) Essential (primary) hypertension ?I10 - Essential (primary) hypertension (ICD-10) Seizure disorder ?G40.909 - Epilepsy, unspecified, not intractable, without status epilepticus (ICD-10) CAD (coronary artery disease) ?I25.10 - Atherosclerotic heart disease of [place] coronary artery without angina pectoris (ICD-10) Cervical vertebral fusion ?M43.22 - Fusion of spine, cervical region (ICD-10) Lipoma of axilla ?D17.20 - Benign lipomatous neoplasm of skin and subcutaneous tissue of unspecified limb (ICD-10) Rupture, tendon, Achilles ?S86.019A - Strain of unspecified Achilles tendon, initial encounter (ICD-10) Syncope ?R55 - Syncope and collapse (ICD-10) Seizure ?R56.9 - Unspecified convulsions (ICD-10) Malignant neoplasm of mediastinum ?C38.3 - Malignant neoplasm of mediastinum, part unspecified (ICD-10) Depression ?F32.A - Depression, unspecified (ICD-10) Dyslipidemia ?E78.5 - Hyperlipidemia, unspecified (ICD-10) Deviated nasal septum ?J34.2 - Deviated nasal septum (ICD-10) Degenerative lumbar spinal stenosis ?M48.061 - Spinal stenosis, lumbar region without neurogenic claudication (ICD-10) 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 - Drug-induced polyneuropathy (ICD-10) ?T45.1X5A - Adverse effect of antineoplastic and immunosuppressive drugs, initial encounter (ICD-10) CAD, multiple vessel ?I25.10 - Atherosclerotic heart disease of [place] coronary artery without angina pectoris (ICD-10) 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 - Malignant neoplasm of mediastinum, part unspecified (ICD-10) Bladder cancer ?C67.9 - Malignant neoplasm of bladder, unspecified (ICD-10) HLD (hyperlipidemia) ?E78.5 - Hyperlipidemia, unspecified (ICD-10) Chest pain ?R07.9 - Chest pain, unspecified (ICD-10) Surgical History History of cataract surgery ?Z98.49 - Cataract extraction status, unspecified eye (ICD-10) History of foot surgery ?Z98.890 - Other specified postprocedural states (ICD-10) History of esophagogastroduodenoscopy (EGD) ?Z98.890 - Other specified postprocedural states (ICD-10) History of colonoscopy ?Z98.890 - Other specified postprocedural states (ICD-10) History of neck surgery ?Z98.890 - Other specified postprocedural states (ICD-10) H/O shoulder surgery ?Z98.890 - Other specified postprocedural states (ICD-10) History of cholecystectomy ?Z90.49 - Acquired absence of other specified parts of digestive tract (ICD-10) Family History Father Family history of myocardial infarction Sister Family history of cancer Other Family history of coronary artery disease Family history of diabetes mellitus Family history of gastric cancer Family history of heart disease Family history of hypertension Family history of kidney cancer Family history of stroke Social History Within the past year, how often did you have a drink containing alcohol: never Score interpretation: A score less than 4 is consistent with normal alcohol consumption. Smoking status: Former smoker Non-prescribed substance use: denies use Previous occupational history: retired Highest level of school completed/degree received: high school graduate Are you now , , , , never or living with a partner: In a typical week, how many times do you talk on the telephone with family, friends, or neighbors: 3 or more times per week How often do you get together with friends or relatives: 3 or more times per week Little interest or pleasure in doing things: not at all Feeling down, depressed, or hopeless: not at all Feel stressed/tense/nervous/anxious/difficulty sleeping: to some extent Life stressors: other Life stressor details: health Gender Identity: male Exam Narrative Exam Narrative: Prior to examining the patient, I have washed with hospital approved and provided Antiseptic Hand Infection Prevention Specialist and have also applied gloves.? Prior to touching the patient, I asked for consent to examine the patient.? General: Alert and oriented, well nourished, moderate respiratory distress with conversational dyspnea Eye: PERRL, EOMI, normal conjunctiva. Glasses HENT: Normocephalic, normal hearing, moist oral mucosa, no scleral icterus, Neck: Supple, non-tender, no carotid bruits, no JVD, no lymphadenopathy. Well-healed cervical scar in the midline posteriorly Lungs: Nonlabored respirations but he does have conversational dyspnea. He is tachypneic. He is wearing oxygen via nasal cannula. Patient has scant and expiratory wheezing throughout the bilateral lung conley. Heart: Normal rate, regular rhythm, no murmur, gallop or edema. Abdomen: Soft, non-tender, non-distended, normal bowel sounds, no masses. Obese abdomen. Musculoskeletal: Normal range of motion and strength, no tenderness. Patient has nonpitting edema bilateral lower extremities. Skin: Skin is warm, dry and pink, no rashes or lesions. Patient has surgical changes to the right foot and ankle. Chronic venous stasis changes apparent. Neurologic: Awake, alert, and oriented X3, CN II-XII intact. Psychiatric: Cooperative, appropriate mood and affect.? Following the conclusion of the examination, I have washed my hands thoroughly after removing examination gloves. Constitutional Vital Signs, click to edit/add: Last Vital Signs Temp 97.7 F 03/25/25 06:07 Pulse 92 H 03/25/25 06:07 Resp 22 H 03/25/25 06:07 BP 110/48 L 03/25/25 06:07 Pulse Ox 90 L 03/25/25 06:07 O2 Del Method Nasal Cannula 03/25/25 06:07 O2 Flow Rate 2 03/25/25 06:07 Course Course Hospital Course: Patient was brought into the emergency room via EMS and he quickly went up and evaluated the patient. He is been placed on oxygen. We will provide the patient with investigative studies. Will do portable x-ray, CBC, CMP, BNP, troponin, EKG, electronic device monitor, continuous pulse ox, DuoNeb treatment, Solu-Medrol, Rocephin 1 g IV piggyback, magnesium 2 g IV piggyback and continue to monitor. Reevaluation(s) Reevaluation #1: Patient indicated that he felt about 50% better. His wheezing has markedly improved but is still scantly present. The patient has had frequent readmissions to the hospital of late secondary to his pulmonary status. He does not have pneumonia at this time. He does not have any evidence of congestive heart failure at this time. This appears to be strictly a COPD exacerbation. He will need continued intravenous steroid therapy and scheduled nebulizer treatments. Patient lives at home and does have a home visiting nurse occasionally that takes vital signs. He does not have a home nebulizer at home. I do not believe that it is safe for the patient to return home. I am calling the hospitalist to inquire about admission. Time: 21:48 Reevaluation #2: Patient was reevaluated before admission. I did explain to the patient on the results of the laboratories and the x-ray. Patient does have marked improvement in his lung sounds. Patient however still says he feels short of breath and is conversationally dyspneic. Given that the patient has had 3 visits within a couple weeks for pneumonia, congestive heart failure and now the episode today feel that the patient warrants a observation in the hospital so we can see if the patient could have a different type of follow-up or medication change that might optimize his pulmonary function. Consultations Consultation #1: Discussed with the hospitalist nurse practitioner who did agree to accept the observation admission of the patient. Time: 22:18 Vital Signs Vital signs: Vital Signs Blood Pressure 144/86 H 03/24/25 20:00 Temperature 97.7 F 03/25/25 06:07 Pulse Rate 92 H 03/25/25 06:07 Respiratory Rate 22 H 03/25/25 06:07 Blood Pressure 110/48 L 03/25/25 06:07 Pulse Oximetry 90 L 03/25/25 06:07 Oxygen Delivery Method Nasal Cannula 03/25/25 06:07 Oxygen Delivery Flow Rate 2 03/25/25 06:07 MDM - SOB/Dyspnea MDM Narrative Medical decision making narrative: In summary the patient is a 70-year-old male presenting to the emergency department with wheezing and shortness of breath. He is on chronic home O2. He is recently had pneumonia and pulmonary vascular congestion. He is afebrile upon arrival and wheezing. Patient does not have a nebulizer at home. Patient's son called at 2145 and was irate that the patient received an unnecessary antibiotic. Tried to explain to the patient's son that we are concerned about his increased work of breathing and the working diagnosis upon arrival was pneumonia. Some protocols do want antibiotics for COPD exacerbations as well. The son ended up hanging up on the phone. Differential Diagnosis Differential diagnosis: Likely acute exacerbation of chronic obstructive airways disease, congestive heart failure, community acquired pneumonia and asthma with exacerbation Medical Records Attestation: I reviewed the patient's medical records. Lab Data Attestation: I reviewed the patient's lab results. Lab results narrative: Patient has no evidence of anemia or leukocytosis. Patient has a troponin and normal BNP. Comprehensive metabolic panel is unremarkable. Labs: Lab Results 03/24/25 Range/Units 20:17 WBC 8.6 (4.0-11.0) 10^3/uL RBC 4.04 L (4.70-6.10) 10^6/uL Hgb 13.5 L (14.0-18.0) g/dL Hct 40.7 L (42.0-54.0) % MCV 100.7 H (80.0-94.0) fL MCH 33.4 (25.9-34.0) pg MCHC 33.2 (29.9-35.2) g/dL RDW 12.8 (11.0-15.0) % Plt Count 178 (150-450) 10^3/uL MPV 9.9 (9.5-13.5) fL Neut % (Auto) 59.9 (43.0-75.0) % Lymph % (Auto) 17.7 L (20.5-60.0) % Nicholas % (Auto) 8.7 (1.7-12.0) % Eos % (Auto) 12.4 H (0.9-7.0) % Baso % (Auto) 1.0 (0.2-2.0) % Neut # (Auto) 5.2 (1.4-6.5) 10^3/uL Lymph # (Auto) 1.5 (1.2-3.8) 10^3/uL Nicholas # (Auto) 0.8 (0.3-0.8) 10^3/uL Eos # (Auto) 1.1 H (0.0-0.7) 10^3/uL Baso # (Auto) 0.1 (0.0-0.1) 10^3/uL Abs Immat Gran (auto) 0.03 (0.00-0.03) 10^3/uL Imm/Tot Granulo (auto) 0.3 (0.0-0.5) % Sodium 136 (136-145) mmol/L Potassium 4.1 (3.5-5.1) mmol/L Chloride 103 (98-107) mmol/L Carbon Dioxide 29.5 (21.0-32.0) mmol/L Anion Gap 7.6 BUN 20.0 H (7.0-18.0) mg/dL Creatinine 1.22 (0.70-1.30) mg/dL Est GFR ( Amer) >60 (>=60 mL/min/1.73m^2) Est GFR (Non-Af Amer) 59 L (>=60 mL/min/1.73m^2) BUN/Creatinine Ratio 16.4 Glucose 99 (74-106) mg/dL Calcium 8.5 (8.5-10.1) mg/dL Magnesium 2.0 (1.8-2.4) mg/dL Troponin I High Sens 5.6 (4.0-76.1) pg/mL NT-Pro-B Natriuret Pep 104.0 (<=900.0) pg/mL Imaging Data Chest x-ray: Attestation: I have reviewed the pertinent imaging results. Radiologist's impression: Board-certified radiologist indicated that there was no acute cardiopulmonary process. ECG Data Attestation: I personally reviewed and interpreted this ECG as follows: ECG interpretation date: 03/24/25 ECG interpretation time: 20:21 Interpretation: Twelve-lead EKG reveals a sinus rhythm with a ventricular rate of 61 bpm. There is a first-degree AV block with a prolonged PA interval of 208 ms. QRS duration is normal. QTc is not prolonged. No evidence of ST segment elevation or depression suggestive of infarction or ischemia. Summary: Normal EKG. Discharge Plan Discharge Chief Complaint: Shortness of Breath/Dyspnea Clinical Impression: Chronic obstructive pulmonary disease with (acute) exacerbation Patient Disposition: Admitted as Observation Time of Disposition Decision: 22:18 Condition: Fair Discharge Date/Time: 03/24/25 23:05
--- NOTE | 2025-03-24 20:08 | ECG_ITS ---
[facility] Test Date: 2025-03-24 Pat Name: GÓMEZ CORTES Department: Room: - Gender: Male Manager Database Administration: : 1955 Requested By: [id number] Order Number: [id number] Reading MD: COLE MOREIRA M.D. Measurements Intervals [place] Rate: 61 P: 90 WV: 208 QRS: 29 QRSD: 88 T: 34 QT: 422 QTc: 426 Interpretive Statements 1100 Sinus rhythm 9110 normal ECG Compared to ECG 03/19/2025 15:45:52 No significant changes Electronically Signed On 03-25-2025 7:46:24 EDT by COLE MOREIRA M.D.
[2025-03-24] MEDS: MAGNESIUM SULFATE IN WATER 2 GM/50 ML PREMIX IV (20:24)
[2025-03-24] MEDS: METHYLPREDNISOLONE SOD SUCC PF 125 MG/2 ML VIAL IVP (20:24)
[2025-03-24 20:26] LABS: Basophils Absolute Auto 0.1 10^3/uL (0.0-0.1); Eosinophils Absolute Auto 1.1 10^3/uL (0.0-0.7); Eosinophils Percent Auto 12.4 % (0.9-7.0); Hematocrit 40.7 % (42.0-54.0); Hemoglobin 13.5 g/dL (14.0-18.0); Immature Granulocytes Abs Auto 0.03 10^3/uL (0.00-0.03); Immature Granulocytes Pct Auto 0.3 % (0.0-0.5); Lymphocytes Absolute Auto 1.5 10^3/uL (1.2-3.8); Lymphocytes Percent Auto 17.7 % (20.5-60.0); Mean Corpuscular HGB Conc 33.2 g/dL (29.9-35.2); Mean Corpuscular Hemoglobin 33.4 pg (25.9-34.0); Mean Corpuscular Volume 100.7 fL (80.0-94.0); Mean Platelet Volume 9.9 fL (9.5-13.5); Monocytes Absolute Auto 0.8 10^3/uL (0.3-0.8); Monocytes Percent Auto 8.7 % (1.7-12.0); Neutrophils Absolute Auto 5.2 10^3/uL (1.4-6.5); Neutrophils Percent Auto 59.9 % (43.0-75.0); Platelet Count 178 10^3/uL (150-450); Red Blood Count 4.04 10^6/uL (4.70-6.10); Red Cell Distribution Width 12.8 % (11.0-15.0); White Blood Count 8.6 10^3/uL (4.0-11.0)
[2025-03-24] MEDS: IPRATROPIUM/ALBUTEROL SULFATE 3 ML AMPUL.NEB IH (20:32)
[2025-03-24] MEDS: CEFTRIAXONE 1,000 MG in 0.9 % SODIUM CHLORIDE 50 ML 100 MG IV (20:51)
[2025-03-24 20:52] LABS: Anion Gap 7.6; BUN Creatinine Ratio 16.4; Calcium 8.5 mg/dL (8.5-10.1); Carbon Dioxide 29.5 mmol/L (21.0-32.0); Chloride 103 mmol/L (98-107); Estimated GFR (African America >60 (>=60 mL/min/1.73m^2); Estimated GFR (Non-African Ame 59 (>=60 mL/min/1.73m^2); Glucose 99 mg/dL (74-106); Potassium 4.1 mmol/L (3.5-5.1); Sodium 136 mmol/L (136-145); Troponin I High Sensitivity 5.6 pg/mL (4.0-76.1)
[2025-03-24] MEDS: ALBUTEROL SULFATE 2.5 MG/3 ML VIAL NEB IH (21:56)
[2025-03-24] MEDS: PHENobarbitaL 32.4 MG TABLET 64.8 MG PO (23:54)
[2025-03-24] MEDS: METHYLPREDNISOLONE SOD SUCC PF 125 MG/2 ML VIAL 60 MG IVP (23:54)
[2025-03-24] MEDS: ENOXAPARIN SODIUM 40 MG/0.4 ML SYRINGE SUBQ (23:54)
[2025-03-24] MEDS: PHENYTOIN 100 MG 200 MG PO (23:55)
[2025-03-25] VITALS (13 sets, daily range): BP systolic 91–123; BP diastolic 48–72; PULSE 65–92; TEMP 36.4–36.7; O2SAT 90–96
[2025-03-25] MEDS: IPRATROPIUM/ALBUTEROL SULFATE 3 ML AMPUL.NEB IH ×4 (05:39→22:45)
[2025-03-25] MEDS: PHENYTOIN 100 MG 200 MG PO ×3 (05:58→21:06)
[2025-03-25] MEDS: PHENobarbitaL 32.4 MG TABLET 64.8 MG PO ×3 (05:59→21:06)
[2025-03-25] MEDS: METHYLPREDNISOLONE SOD SUCC PF 125 MG/2 ML VIAL 60 MG IVP (05:59)
[2025-03-25 06:16] LABS: Hematocrit 42.5 % (42.0-54.0); Hemoglobin 14.4 g/dL (14.0-18.0); Mean Corpuscular HGB Conc 33.9 g/dL (29.9-35.2); Mean Corpuscular Hemoglobin 33.7 pg (25.9-34.0); Mean Corpuscular Volume 99.5 fL (80.0-94.0); Mean Platelet Volume 10.1 fL (9.5-13.5); Platelet Count 186 10^3/uL (150-450); Red Blood Count 4.27 10^6/uL (4.70-6.10); Red Cell Distribution Width 12.8 % (11.0-15.0); White Blood Count 10.5 10^3/uL (4.0-11.0)
[2025-03-25 06:28] LABS: Anion Gap 14.3; BUN Creatinine Ratio 15.5; Calcium 8.7 mg/dL (8.5-10.1); Carbon Dioxide 25.6 mmol/L (21.0-32.0); Chloride 102 mmol/L (98-107); Estimated GFR (African America >60 (>=60 mL/min/1.73m^2); Estimated GFR (Non-African Ame >60 (>=60 mL/min/1.73m^2); Glucose 108 mg/dL (74-106); Potassium 4.9 mmol/L (3.5-5.1); Sodium 137 mmol/L (136-145)
[2025-03-25] MEDS: SPIRONOLACTONE 25 MG TABLET PO (08:44)
[2025-03-25] MEDS: PSYLLIUM SUGAR FREE 5.8 GM POWDER PACKET PO (08:44)
[2025-03-25] MEDS: ASPIRIN 81 MG TABLET.DR PO (08:44)
[2025-03-25] MEDS: CITALOPRAM HYDROBROMIDE 20 MG TABLET 40 MG PO (08:44)
[2025-03-25] MEDS: METOPROLOL SUCCINATE 25 MG TAB.ER.24H PO (08:45)
[2025-03-25] MEDS: FUROSEMIDE 40 MG TABLET PO (08:45)
[2025-03-25 08:56] LABS: Influenza Virus A Antigen Negative; Influenza Virus B Antigen Negative; Internal Control Within Normal Limits; Respiratory Syncytial Virus Not Detected (NOT DETECTE)
[2025-03-25 08:57] LABS: Internal Control Within Normal Limits; SARS-CoV-2 Ag NEGATIVE (NEGATIVE)
[2025-03-25] MEDS: AZITHROMYCIN 250 MG TABLET 500 MG PO (09:29)
[2025-03-25] MEDS: GUAIFENESIN 600 MG TAB.ER.12H PO ×2 (09:29→21:09)
--- NOTE | 2025-03-25 10:21 | CM.NOTE ---
Rounds made with Dr. Lerma, pt continues to c/o dyspnea with minimal exertion and difficulty taking deep breath. No discharge today, pt will continue in OBS status.
--- NOTE | 2025-03-25 11:17 | CM.NOTE ---
Medicare Outpatient Observation Notice discussed with pt, pt verbalizes understanding and signs paper. Original given to pt and copy placed in pt's chart.
--- NOTE | 2025-03-25 12:01 | CM.NOTE ---
Discussed with pt chronic disease management and COPD. Pt does not have a process treater at this time, pt just has PCP. Dr. Lerma had discussed with pt maintenance inhaler and discussing with PCP to establish a process treater. Pt provided information regarding pulmonary rehab and will speak with PCP at follow up appt.
--- NOTE | 2025-03-25 13:04 | SWNOTE1 ---
Pt was discharged on 03/11/25 on 1 liter of home oxygen through [facility]. Pt currently has [facility] nurse that comes in 1x per week.
[2025-03-25] MEDS: METHYLPREDNISOLONE SOD SUCC PF 40 MG/ML VIAL IVP ×2 (13:22→21:06)
--- NOTE | 2025-03-25 13:25 | SWNOTE1 ---
DINA met with pt to discuss dc needs. Pt lives in apartment with his . Pt lives on 3rd floor, but has elevator at [facility]. Pt does use a rollator to get around. Pt does have [facility] nurse coming in 1x per week. DINA asked pt about his home oxygen. He voiced he does still wear it and his HH nurse bumped it up to 2 liters because he was short of breath. SW to call [facility] and see what the prescription was for. At this time pt denies any needs. DINA to follow as needed. DINA called [facility], no answer.
--- NOTE | 2025-03-25 13:29 | PM.HP ---
HPI H&P: HPI History of Present Illness Chief complaint: COPD EXACERBATION Narrative: 70 y o male with hx of COPD, Seizure Disorder, recent hospital admission for Pneumonia 2 weeks ago presented to ED via EMS for progressively worsening SOB for past couple of days. Patient denies fever,chills but reports increased chest congestion, cough and mucus. He was discharged on 2 L Home O2 2 weeks ago and his O2 requirement has not changed. However, he was having difficulty catching his breath or take deep inspirations. Patient was using Albuterol inhaler with no sig relief and when his symptoms persistent and progressively worsened, he decided to come to ED for further eval. His work up in ED was unremarkable with no acute finding on CXR and he tested negative for Influenza, COVID and RSV. He was started on Solumedrol, duonebs and admitted overnight for COPD exacerbation. While he is subjecitvely feeling better today, he still feels SOB at rest and can't take deep breaths. Opioid HPI Opioid Management Most Recent Pain and Opioid Data: Last Pain Scale 4 03/09/25, 22:00 Last Pain Intensity 0 03/08/25, 10:45 Last Pain Assessment 03/24/25, 23:45 Last ORT Total Score 0 03/24/25, 23:22 Last ORT Risk Category Low Risk 03/24/25, 23:22 Review of Systems ROS Status of ROS 10 or more systems reviewed and unremarkable except as noted in history and below [facility] Medical History Right lower lobe pneumonia ?J18.9 - Pneumonia, unspecified organism (ICD-10) Essential (primary) hypertension ?I10 - Essential (primary) hypertension (ICD-10) Seizure disorder ?G40.909 - Epilepsy, unspecified, not intractable, without status epilepticus (ICD-10) CAD (coronary artery disease) ?I25.10 - Atherosclerotic heart disease of [place] coronary artery without angina pectoris (ICD-10) Cervical vertebral fusion ?M43.22 - Fusion of spine, cervical region (ICD-10) Lipoma of axilla ?D17.20 - Benign lipomatous neoplasm of skin and subcutaneous tissue of unspecified limb (ICD-10) Rupture, tendon, Achilles ?S86.019A - Strain of unspecified Achilles tendon, initial encounter (ICD-10) Syncope ?R55 - Syncope and collapse (ICD-10) Seizure ?R56.9 - Unspecified convulsions (ICD-10) Malignant neoplasm of mediastinum ?C38.3 - Malignant neoplasm of mediastinum, part unspecified (ICD-10) Depression ?F32.A - Depression, unspecified (ICD-10) Dyslipidemia ?E78.5 - Hyperlipidemia, unspecified (ICD-10) Deviated nasal septum ?J34.2 - Deviated nasal septum (ICD-10) Degenerative lumbar spinal stenosis ?M48.061 - Spinal stenosis, lumbar region without neurogenic claudication (ICD-10) 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 - Drug-induced polyneuropathy (ICD-10) ?T45.1X5A - Adverse effect of antineoplastic and immunosuppressive drugs, initial encounter (ICD-10) CAD, multiple vessel ?I25.10 - Atherosclerotic heart disease of [place] coronary artery without angina pectoris (ICD-10) 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 - Malignant neoplasm of mediastinum, part unspecified (ICD-10) Bladder cancer ?C67.9 - Malignant neoplasm of bladder, unspecified (ICD-10) HLD (hyperlipidemia) ?E78.5 - Hyperlipidemia, unspecified (ICD-10) Chest pain ?R07.9 - Chest pain, unspecified (ICD-10) Surgical History History of cataract surgery ?Z98.49 - Cataract extraction status, unspecified eye (ICD-10) History of foot surgery ?Z98.890 - Other specified postprocedural states (ICD-10) History of esophagogastroduodenoscopy (EGD) ?Z98.890 - Other specified postprocedural states (ICD-10) History of colonoscopy ?Z98.890 - Other specified postprocedural states (ICD-10) History of neck surgery ?Z98.890 - Other specified postprocedural states (ICD-10) H/O shoulder surgery ?Z98.890 - Other specified postprocedural states (ICD-10) History of cholecystectomy ?Z90.49 - Acquired absence of other specified parts of digestive tract (ICD-10) Family History Father Family history of myocardial infarction Sister Family history of cancer Other Family history of coronary artery disease Family history of diabetes mellitus Family history of gastric cancer Family history of heart disease Family history of hypertension Family history of kidney cancer Family history of stroke Social History Within the past year, how often did you have a drink containing alcohol: never Score interpretation: A score less than 4 is consistent with normal alcohol consumption. Smoking status: Former smoker Non-prescribed substance use: denies use Previous occupational history: retired Highest level of school completed/degree received: high school graduate Are you now , , , , never or living with a partner: In a typical week, how many times do you talk on the telephone with family, friends, or neighbors: 3 or more times per week How often do you get together with friends or relatives: 3 or more times per week Little interest or pleasure in doing things: not at all Feeling down, depressed, or hopeless: not at all Feel stressed/tense/nervous/anxious/difficulty sleeping: to some extent Life stressors: other Life stressor details: health Gender Identity: male Meds Home Medications and Allergies Home Medications ?Medication ?Instructions ?Recorded ?Confirmed ?Type atorvastatin 10 mg tablet 10 mg PO .hs 05/12/23 03/24/25 History citalopram 40 mg tablet 40 mg PO DAILY 05/12/23 03/24/25 History phenytoin sodium extended 100 mg 200 mg PO TID 05/12/23 03/24/25 History capsule furosemide 40 mg tablet 40 mg PO DAILY PRN edema 05/24/24 03/25/25 History nitroglycerin 0.3 mg sublingual 0.3 mg sublingual Q5M PRN chest 05/24/24 03/24/25 History tablet pain psyllium husk 0.4 gram capsule 0.4 g PO DAILY 12/04/24 03/24/25 History (Daily Fiber) aspirin 81 mg tablet,delayed 81 mg PO DAILY 01/09/25 03/24/25 History release (Adult Low Dose Aspirin) albuterol sulfate 90 mcg/actuation 2 inh inhalation Q4H PRN shortness 02/21/25 03/24/25 History aerosol inhaler of breath or wheezing fluticasone propionate 50 2 spray intranasal DAILY 02/21/25 03/25/25 History mcg/actuation nasal spray,suspension metoprolol succinate 25 mg 25 mg PO DAILY 02/21/25 03/24/25 History tablet,extended release 24 hr spironolactone 25 mg tablet 25 mg PO DAILY 02/21/25 03/24/25 History phenobarbital 32.4 mg tablet 64.8 mg PO TID 03/24/25 03/24/25 History triamcinolone acetonide 0.5 % 1 applic topical TID 03/24/25 03/24/25 History topical cream Allergies Allergy/AdvReac Type Severity Reaction Status Date / Time oxycodone (From OxyContin) Allergy Severe Anaphylaxis Verified 03/19/25 15:45 gabapentin Allergy Unknown Unknown Verified 03/19/25 15:45 Exam Constitutional Vital Signs, click to edit/add: Last Vital Signs Temp 97.7 F 03/25/25 06:07 Pulse 78 03/25/25 07:52 Resp 22 H 03/25/25 06:07 BP 110/48 L 03/25/25 06:07 Pulse Ox 91 L 03/25/25 11:05 O2 Del Method Nasal Cannula 03/25/25 11:05 O2 Flow Rate 2 03/25/25 11:05 Documenting provider has reviewed patient's vital signs: yes Common normals: no apparent distress and oriented x3 General appearance: cooperative and anxious Nutritional appearance: obese [facility] Common normals: normocephalic and head/scalp atraumatic Head and scalp: normocephalic and atraumatic Eye Common normals: conjunctivae normal and no scleral icterus Conjunctiva: conjunctiva(e) normal Respiratory Common normals: normal respiratory effort Effort & inspection: tachypneic Auscultation: diminished lung sounds Other: No significant wheezing. Patient appeared SOB at rest during exam with conversational dyspnea noted. Cardio Common normals: regular rate, S1 normal heart sound and S2 normal heart sound Rate: regular rate Heart sounds: S1 normal and S2 normal GI Common normals: Normal to inspection, nondistended, normoactive bowel sounds present, soft to palpation, non-tender and no hepatosplenomegaly Palpation: soft and no hepatosplenomegaly Extremity Common normals: no clubbing, cyanosis or edema Neuro Common normals: oriented x3, moves all extremities and no focal motor deficits Psych Common normals: mental status grossly normal, denies hallucinations, denies homicidal ideation and denies suicidal ideation Results Labs Labs: Short CBC 03/24/25 03/25/25 Range/Units 20:17 05:55 WBC 8.6 10.5 (4.0-11.0) 10^3/uL Hgb 13.5 L 14.4 (14.0-18.0) g/dL Hct 40.7 L 42.5 (42.0-54.0) % Plt Count 178 186 (150-450) 10^3/uL BMP 03/24/25 03/25/25 20:17 05:55 Sodium 136 137 Potassium 4.1 4.9 Chloride 103 102 Carbon Dioxide 29.5 25.6 BUN 20.0 H 16.0 Creatinine 1.22 1.03 Glucose 99 108 H Calcium 8.5 8.7 Assessment and Plan Assessment and Plan (1) Chronic obstructive pulmonary disease with (acute) exacerbation: (2) Seizure disorder: (3) CAD (coronary artery disease): Qualifiers: Coronary Disease-Associated Artery/Lesion type: [place] artery [place] vs. transplanted heart: [place] heart Associated angina: with unstable angina Qualified Code(s): I25.110 - Atherosclerotic heart disease of [place] coronary artery with unstable angina pectoris (4) HLD (hyperlipidemia): Qualifiers: Hyperlipidemia type: unspecified Qualified Code(s): E78.5 - Hyperlipidemia, unspecified Plan Patient admitted for COPD exacerbation. No evidence of PNA on CXR. Subjectively feeling better but still dyspneic and symptomatic at rest. O2 requirement at baseline. C/w IV solumedrol 40 q8, duonebs. Added PO Azithromycin for COPD exacerbation. Patient will require continued hospital admission and treatment alongwith close monitoring to ensure he clinically recovers and improves.
--- NOTE | 2025-03-25 13:49 | SWNOTE1 ---
SW called and confirmed with [facility] that pt is prescribed 1 liter continuous home oxygen on 03/11/25.
--- NOTE | 2025-03-25 13:53 | SWNOTE1 ---
DINA faxed ED note and H&P to [facility].
[2025-03-25] MEDS: ENOXAPARIN SODIUM 40 MG/0.4 ML SYRINGE SUBQ (21:06)
[2025-03-25] MEDS: ATORVASTATIN CALCIUM 10 MG TABLET PO ×2 (21:06)
[2025-03-25] MEDS: FLUTICASONE PROPIONATE 50 MCG NASAL SPRAY 2 SPRAY NS (23:44)
[2025-03-26] VITALS (8 sets, daily range): BP systolic 100–115; BP diastolic 56–70; PULSE 69–76; TEMP 36.4–36.6; O2SAT 90–92
[2025-03-26] MEDS: IPRATROPIUM/ALBUTEROL SULFATE 3 ML AMPUL.NEB IH ×4 (05:20→22:13)
[2025-03-26] MEDS: PHENYTOIN 100 MG 200 MG PO ×3 (05:28→21:57)
[2025-03-26] MEDS: PHENobarbitaL 32.4 MG TABLET 64.8 MG PO ×3 (05:29→21:56)
[2025-03-26] MEDS: METHYLPREDNISOLONE SOD SUCC PF 40 MG/ML VIAL IVP ×3 (05:29→21:56)
[2025-03-26] MEDS: ASPIRIN 81 MG TABLET.DR PO (09:58)
[2025-03-26] MEDS: FUROSEMIDE 40 MG TABLET PO (09:58)
[2025-03-26] MEDS: GUAIFENESIN 600 MG TAB.ER.12H PO ×2 (09:59→21:57)
[2025-03-26] MEDS: AZITHROMYCIN 250 MG TABLET 500 MG PO (09:59)
[2025-03-26] MEDS: SPIRONOLACTONE 25 MG TABLET PO (09:59)
[2025-03-26] MEDS: PSYLLIUM SUGAR FREE 5.8 GM POWDER PACKET PO (09:59)
[2025-03-26] MEDS: CITALOPRAM HYDROBROMIDE 20 MG TABLET 40 MG PO (09:59)
[2025-03-26] MEDS: FLUTICASONE PROPIONATE 50 MCG NASAL SPRAY 2 SPRAY NS ×2 (09:59→21:57)
[2025-03-26] MEDS: METOPROLOL SUCCINATE 25 MG TAB.ER.24H PO (09:59)
--- NOTE | 2025-03-26 11:15 | CM.NOTE ---
Rounds made with Dr. Lerma, pt c/o tightness in throat and continued SOB. No discharge today, Dr. Lerma will change to inpatient status.
--- NOTE | 2025-03-26 11:27 | PM.IMPN1 ---
Progress Note: A&P Assessment and Plan (1) Acute on chronic respiratory failure with hypoxia: Assessment and Plan: Patient was discharged 2 weeks ago when he was admitted for pneumonia on 1 L of oxygen via nasal cannula. He presented to ED with worsening shortness of breath and hypoxia and needed 2 L of oxygen which is worse from his baseline. He is still needing 2 L of oxygen at rest. Wean off oxygen as tolerated. (2) Chronic obstructive pulmonary disease with (acute) exacerbation: Assessment and Plan: Is still quite bronchospastic, short of breath. Having to stop during conversation to catch his breath. Continue with Solu-Medrol, bronchodilators. Continue with azithromycin. Added saline nebs with Mucinex to help with chest congestion/mucus clearing. (3) Seizure disorder: Assessment and Plan: Continue with home medications. Seizures were controlled. (4) CAD (coronary artery disease): Assessment and Plan: Nonobstructive CAD on left heart catheterization earlier this year. No evidence of active cardiac ischemia. Qualifiers: Coronary Disease-Associated Artery/Lesion type: [place] artery [place] vs. transplanted heart: [place] heart Associated angina: with unstable angina Qualified Code(s): I25.110 - Atherosclerotic heart disease of [place] coronary artery with unstable angina pectoris (5) HLD (hyperlipidemia): Assessment and Plan: Continue with statin Qualifiers: Hyperlipidemia type: unspecified Qualified Code(s): E78.5 - Hyperlipidemia, unspecified Plan Patient originally admitted as BUT continues to feel short of breath, with no significant improvement since admission on initial period Of observation. Will change to inpatient as patient continues to be symptomatic and has failed to improved and will require continued inpatient monitoring, treatment. Internal Medicine - PN: Subj Subjective Interval history: Seen and examined. No overnight events. No significant improvement in his still feels short of breath at rest and noted to have conversational dyspnea. Exam Constitutional Vital Signs, click to edit/add: Last Vital Signs Temp 97.7 F 03/26/25 09:56 Pulse 73 03/26/25 09:56 Resp 22 H 03/26/25 09:56 BP 103/57 03/26/25 09:56 Pulse Ox 90 L 03/26/25 09:56 O2 Del Method Nasal Cannula 03/26/25 09:56 O2 Flow Rate 1 03/26/25 09:56 Documenting provider has reviewed patient's vital signs: yes Common normals: no apparent distress and oriented x3 General appearance: cooperative and anxious Nutritional appearance: obese Respiratory Common normals: normal respiratory effort Effort & inspection: tachypneic Auscultation: diminished lung sounds Other: Bronchospastic. Patient appeared SOB at rest during exam with conversational dyspnea noted. Cardio Common normals: regular rate, S1 normal heart sound and S2 normal heart sound Rate: regular rate Heart sounds: S1 normal and S2 normal Extremity Common normals: no clubbing, cyanosis or edema Neuro Common normals: oriented x3, moves all extremities and no focal motor deficits Psych Common normals: mental status grossly normal, denies hallucinations, denies homicidal ideation and denies suicidal ideation
[2025-03-26] MEDS: SODIUM CHLORIDE 3% INHALATION 15 ML NEB 3 ML IH ×3 (11:50→22:13)
--- NOTE | 2025-03-26 11:54 | SWNOTE1 ---
DINA faxed physician note from today to [facility]. No discharge today.
[2025-03-26] MEDS: ATORVASTATIN CALCIUM 10 MG TABLET PO (21:57)
[2025-03-26] MEDS: ENOXAPARIN SODIUM 40 MG/0.4 ML SYRINGE SUBQ (21:57)
[2025-03-27 04:19] VITALS: PULSE 77; O2SAT 92
[2025-03-27] MEDS: IPRATROPIUM/ALBUTEROL SULFATE 3 ML AMPUL.NEB IH ×2 (04:19→10:59)
[2025-03-27] MEDS: SODIUM CHLORIDE 3% INHALATION 15 ML NEB 3 ML IH ×2 (04:19→10:59)
[2025-03-27 05:00] VITALS: BP 102/64; PULSE 72; TEMP 36.6; O2SAT 93
[2025-03-27] MEDS: METHYLPREDNISOLONE SOD SUCC PF 40 MG/ML VIAL IVP (06:12)
[2025-03-27] MEDS: PHENYTOIN 100 MG 200 MG PO (06:12)
[2025-03-27] MEDS: PHENobarbitaL 32.4 MG TABLET 64.8 MG PO (06:12)
[2025-03-27 07:27] VITALS: BP 97/53; PULSE 70; TEMP 36.6; O2SAT 89
[2025-03-27] MEDS: AZITHROMYCIN 250 MG TABLET 500 MG PO (07:59)
[2025-03-27] MEDS: PSYLLIUM SUGAR FREE 5.8 GM POWDER PACKET PO (07:59)
[2025-03-27] MEDS: ASPIRIN 81 MG TABLET.DR PO (07:59)
[2025-03-27] MEDS: FUROSEMIDE 40 MG TABLET PO (07:59)
[2025-03-27] MEDS: CITALOPRAM HYDROBROMIDE 20 MG TABLET 40 MG PO (08:00)
[2025-03-27] MEDS: GUAIFENESIN 600 MG TAB.ER.12H PO (08:00)
[2025-03-27] MEDS: SPIRONOLACTONE 25 MG TABLET PO (08:00)
[2025-03-27] MEDS: METOPROLOL SUCCINATE 25 MG TAB.ER.24H PO (08:00)
--- NOTE | 2025-03-27 08:39 | CM.NOTE ---
Important Message From Medicare discussed with pt, pt verbalizes understanding and signs paper. Original given to pt and copy placed in pt's chart.
[2025-03-27] MEDS: FLUTICASONE PROPIONATE 50 MCG NASAL SPRAY 2 SPRAY NS (09:36)
--- NOTE | 2025-03-27 10:00 | CM.NOTE ---
Rounds made with Dr. Lerma, pt will discharge to home today. Discussed with pt about chronic disease, COPD and maintenance inhaler. Dr. Lerma will call medication in for pt. Pt will f/u with PCP and recommends pt seeing logistics tech as outpatient.
[2025-03-27 10:24] VITALS: O2SAT 87; O2SAT 89; O2SAT 95
--- NOTE | 2025-03-27 10:25 | PC.NURSE ---
2 SENIOR WEALTH ADVISOR [facility] [place]
--- NOTE | 2025-03-27 10:43 | P.DS_ITS ---
DS: Providers Provider Date of admission: 03/26/25 10:42 Primary care physician: Jignesh Manjarrez MD Admitting clinician: Shaikh Florentin Attending physician on admission: Shaikh Florentin Attending physician on discharge: Shaikh Florentin Discharging clinician: Shaikh Florentin Anticipated date of discharge: 03/27/25 DS: Diagnosis Discharge Diagnosis (1) Acute on chronic respiratory failure with hypoxia: (2) Chronic obstructive pulmonary disease with (acute) exacerbation: (3) Seizure disorder: (4) CAD (coronary artery disease): Qualifiers: Coronary Disease-Associated Artery/Lesion type: [place] artery [place] vs. transplanted heart: [place] heart Associated angina: with unstable angina Qualified Code(s): I25.110 - Atherosclerotic heart disease of [place] coronary artery with unstable angina pectoris (5) HLD (hyperlipidemia): Qualifiers: Hyperlipidemia type: unspecified Qualified Code(s): E78.5 - Hyperlipidemia, unspecified DS: Summary Hospital Course Hospital Course: 70 y o male with hx of COPD, Seizure Disorder, recent hospital admission for Pneumonia 2 weeks ago presented to ED via EMS for progressively worsening SOB for past couple of days. He was discharged on 1 L Home O2 2 weeks ago and required 2L O2 upon admission. Patient was using Albuterol inhaler with no sig relief and when his symptoms persistent and progressively worsened, he decided to come to ED for further eval. His work up in ED was unremarkable with no acute finding on CXR and he tested negative for Influenza, COVID and RSV. He was started on Solumedrol, duonebs and admitted for COPD exacerbation. Patient continued to feel short of breath and reported difficulty clearing his mucus and secretions. After addition of saline nebs and guaifenesin, he felt that he was able to breathe better. Patient clinically improved during the course of admission. He had a walk test to evaluate his oxygen need at home. He will be discharged on 2 L of oxygen via nasal cannula at rest and on activity. Patient is medically stable for discharge. He will be discharged on prednisone taper along with azithromycin. He is not on any maintenance drug for COPD. I will discharge him on his Spiriva and he will need to follow-up with PCP in 1 to 2 weeks. He will also benefit from pulmonology follow-up in 2 weeks. Patient educated on worrisome signs and symptoms and was instructed to return to ED if he develop worsening cough, shortness of breath, wheezing. Status at Discharge Functional status at discharge: independent ambulation Overall status at discharge: patient is back to baseline Time Spent with Patient Time attestation: Total time spent providing and/or coordinating discharge services: Time spent: greater than 30 minutes Exam Constitutional Vital Signs, click to edit/add: Last Vital Signs Temp 97.9 F 03/27/25 07:27 Pulse 70 03/27/25 07:27 Resp 18 03/27/25 07:27 BP 97/53 03/27/25 07:27 Pulse Ox 89 L 03/27/25 07:27 O2 Del Method Nasal Cannula 03/27/25 07:27 O2 Flow Rate 2 03/27/25 07:27 Documenting provider has reviewed patient's vital signs: yes Common normals: no apparent distress and oriented x3 General appearance: cooperative Nutritional appearance: obese Respiratory Common normals: normal respiratory effort and clear to auscultation bilaterally Effort & inspection: able to speak in complete sentences Cardio Common normals: regular rate, S1 normal heart sound and S2 normal heart sound Rate: regular rate Heart sounds: S1 normal and S2 normal Extremity Common normals: no clubbing, cyanosis or edema Neuro Common normals: oriented x3, moves all extremities and no focal motor deficits Psych Common normals: mental status grossly normal, denies hallucinations, denies homicidal ideation and denies suicidal ideation Discharge Plan Discharge Disposition: Home, Self-Care Condition: Fair Discharge Medications: New prednisone 20 mg tablet 20 mg PO BID 5 Days Qty: 10 0RF azithromycin 250 mg tablet 250 mg PO DAILY 3 Days Qty: 3 0RF benzonatate 100 mg capsule 100 mg PO TID PRN (Reason: cough) Qty: 20 0RF tiotropium bromide [Spiriva with HandiHaler] 18 mcg capsule, w/inhalation device 1 cap inhalation DAILY 30 Days Qty: 30 0RF Rx Instructions: puncture 1 cap using device; one dose = 2 inhalations Continued furosemide 40 mg tablet 40 mg PO DAILY PRN (Reason: edema) nitroglycerin 0.3 mg tablet, sublingual 0.3 mg sublingual Q5M PRN (Reason: chest pain) psyllium husk [Daily Fiber] 0.4 gram capsule 0.4 g PO DAILY aspirin [Adult Low Dose Aspirin] 81 mg tablet,delayed release (DR/EC) 81 mg PO DAILY triamcinolone acetonide 0.5 % cream 1 applic TOPICAL TID phenobarbital 32.4 mg tablet 64.8 mg PO TID atorvastatin 10 mg tablet 10 mg PO .hs citalopram 40 mg tablet 40 mg PO DAILY phenytoin sodium extended 100 mg capsule 200 mg PO TID spironolactone 25 mg tablet 25 mg PO DAILY metoprolol succinate 25 mg tablet extended release 24 hr 25 mg PO DAILY albuterol sulfate 90 mcg/actuation HFA aerosol inhaler 2 inh INHALATION Q4H PRN (Reason: shortness of breath or wheezing) fluticasone propionate 50 mcg/actuation spray,suspension 2 spray INTRANASAL DAILY Activity: increase activity as tolerated Diet: advance to your usual diet Print Language: Korean Forms: Portal Instructions Follow Up Appointments: F/u with PCP in one week F/u with Pulm in one 1-2 weeks
--- NOTE | 2025-03-27 10:58 | SWNOTE1 ---
DINA spoke to case management and pt will now need increased to 2 liters of home oxygen at discharge. Nurse performed walk test. DINA faxed walk test, script, face to face documentation to [facility], where pt already has home oxygen from. DINA faxed dc med rec, CRF, and dc summary to [facility].
[2025-03-27 11:00] VITALS: BP 112/64; PULSE 69; TEMP 36.8; O2SAT 93
[2025-03-27 11:32] VITALS: BMI 41.3
--- NOTE | 2025-03-27 13:13 | SWNOTE1 ---
SW stopped and spoke with pt about his home oxygen being bumped up to 2 liters. He voiced understanding. SW asked if he had a tank to go home with? Pt stated no. SW advised pt that he can take a [facility] that we have here since he is current with them. Pt stated he lives close by and he will be fine. SW advised pt that he is now on 2 liters and there is chance he will get short of breath and have to return to hospital if he leaves without wearing it. He stated he does not have room for a tank. Pt again expressed he will be find. Pt then spoke about one of the medications needing a pre-auth and his insurance won't cover. He said [facility] called him and let him know. Him and the nurse spoke to Dr. Manjarrez's nurse and she said she was working on it. SW to follow up with PCP office. SW updated nurse about oxygen and following up with PCP. SW called PCP office and they were at lunch. SW called again and left message for Dr. Manjarrez nurse.
--- NOTE | 2025-03-28 15:03 | CM.DCFOLLOWU ---
Person spoke with:patient How are you feeling?well How is your pain?none Did you understand your discharge instructions?yes Do you have any questions about your discharge instructions? no Were you given any prescriptions at discharge?yes Were you able to get your prescriptions filled? still waiting on inhaler. Has been calling PCP office and Insurance Do you understand how to take your medications as ordered?yes Do you have any questions about your follow up appointment and do you plan to keep your follow up appointment? no questions, reviewed follow up Is there anything else that you would like to discuss?no Questions/Comments/Concerns/Other:none
== END 2025-03-27 14:14 | disposition home health service (06) | DRG 189 ==
LOC: ER 22:19 → MS 03-27 10:38
PROVIDERS: Registered Nurse; Admitting Provider Family Medicine; Emergency Provider Emergency Medicine; PCP Family Medicine; Visit Provider Internal Medicine
DX: J96.21 Acute and chronic respiratory failure with hypoxia (principal); J44.1 Chronic obstructive pulmonary disease with (acute) exacerbation; I25.110 Atherosclerotic heart disease of native coronary artery with unstable angina pectoris; G40.909 Epilepsy, unspecified, not intractable, without status epilepticus; E78.5 Hyperlipidemia, unspecified; I10 Essential (primary) hypertension; Z98.1 Arthrodesis status; F32.A Depression, unspecified; Z85.29 Personal history of malignant neoplasm of other respiratory and intrathoracic organs; Z85.51 Personal history of malignant neoplasm of bladder; Z87.891 Personal history of nicotine dependence; Z87.01 Personal history of pneumonia (recurrent); Z99.81 Dependence on supplemental oxygen; Z79.899 Other long term (current) drug therapy; Z79.82 Long term (current) use of aspirin; Z88.5 Allergy status to narcotic agent; Z88.8 Allergy status to other drugs, medicaments and biological substances
CPT/HCPCS: 36415; 71045; 80048; 83735; 83880; 84484; 85025; 85027; 87420; 87804; 87811; 93005; 94640; 94761; 96365; 96367; 96372; 96375; 96376; 99285; G0378; J0696; J1650; J2919; J3475

== ENCOUNTER 2025-04-04 21:42 | Emergency (ER) | payer MEDICARE, MEDICAID, SELFPAY ==
[2025-04-04] VITALS (13 sets, daily range): BP systolic 118–140; BP diastolic 62–71; PULSE 76–84; TEMP 36.8; O2SAT 91–97; BMI 40.6
--- NOTE | 2025-04-04 21:50 | ECG_ITS ---
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 Measurements Intervals [place] Rate: 78 P: 49 PA: 178 QRS: 6 QRSD: 84 T: 38 QT: 372 QTc: 406 Interpretive Statements 1100 Sinus rhythm 9110 normal ECG Compared to ECG 03/24/2025 20:20:07 No significant changes Electronically Signed On 04-05-2025 6:51:27 EDT by COLE MOREIRA M.D.
--- OUTSIDE RECORDS SUMMARY | 2025-04-04 21:56 | XMS_ITS | CCD ---
Author Organization [facility] Care Team Providers Care Tube Buffer Name Role Phone KARINA JAY Attending Unavailable [...] DR TRINIDAD [employer] Consult[employer] Unavailable LUZMARIA ., MARIANA Consulting Unavailable NADERER, DR JIGNESH Means Primary [...] Care Provider JIGNESH GONSALEZ Primary Care Physician [phone] Chris CAMARILLO Attending Unavailable JIGNESH GONSALEZ Referring Unavailable Chris CAMARILLO Attending Unavailable MD Jignesh Gonsalez Primary Care Provider [phone] RIDGE Garcia Attending Provider [phone] MD Jignesh Gonsalez Primary Care Provider RIDGE Garcia Attending Provider [phone] Jignesh Gonsalez MD Primary Care Provider [phone] Jignesh Gonsalez Primary Care Unavailable Joslyn Garcia Attending Unavailable Joslyn Garcia Admitting Unavailable Jignesh Gonsalez Primary Care Unavailable Joslyn Garcia Attending Unavailable Joslyn Garcia Admitting Unavailable Yancy Lawson Admitting Unavailable Jignesh Gonsalez Primary Care Unavailable Yancy Lawson M Attending Unavailable Jose Mccloud DO Primary Care Provider [phone] DARRELL THOMAS Referring Unavailable DARRELL THOMAS Referring Unavailable ELTAARNAUD DE DIOS Attending Unavailable CORNELIO HODGES Attending Unavailable MOUKARBCOLE OROZCO Referring Unavailable SAPPHIRESOPHIE REVELES Admitting Unavailable ROZINA JOSHI Attending Unavailable CORNELIO HODGES Referring Unavailable JONY WEBBER Referring Unavailable AMRIK PÉREZ Attending Unavailable JIGNESH GONSALEZ Referring Unavailable JIGNESH GONSALEZ Attending Unavailable CORNELIO COTTER Attending Unavailable CHARI VELA Attending Unavailable JIGNESH GONSALEZ Attending Unavailable JIGNESH GONSALEZ Attending Unavailable IMELDA [...] Drug Allergy 4 stomach upset, IV ONLY-Dizzy [facility] Opioid Agonists (1 source) oxyCODONE Drug Allergy 4 Unknown Reaction [facility] (11 sources) gabapentin; Translations: [GABAPENTIN] Drug Allergy 0 stomach upset [facility] Repository (2 sources) oxyCODONE Drug Allergy 0 [facility] Repository (3 sources) Phenytoin; Translations: [Dilantin] Drug Allergy 0 [facility] Repository (20 sources) gabapentin; Translations: [gabapentin] Drug Allergy 0 Unknown (qualifier value), Unknown [facility] (20 sources) oxyCODONE; Translations: [oxycodone] Drug Allergy 0 Difficulty breathing (finding), Angioedema, Unknown [facility] (20 sources) Phenytoin; Translations: [phenytoin] Drug Allergy 6 Dizziness (finding), Unknown, Dizziness [facility] (1 source) Phenytoin; Translations: [PHENYTOIN SODIUM EXTENDED] Drug Allergy 6 [facility] Repository (1 source) gabapentin Drug Allergy 4 [facility] Repository (1 source) oxyCODONE Drug Allergy 4 [facility] Repository (1 source) Phenytoin Drug Allergy 4 [facility] Repository Medications Current Medications Medication Drug Class(es) Dates Sig (Normalized) Sig (Original) acetaminophen 325 mg / HYDROcodone bitartrate 5 mg oral tablet (20 sources) Opioid Agonist Start: 01-28-2025 End: 02-04-2025 take 1 tablet by mouth four times daily as needed for pain HYDROcodone-acetami nophen (Hammond) 5-325 MG tablet Indications: Degenerative lumbar spinal stenosis Take 1 tablet by mouth 4 (four) times a day as needed for severe pain for up to 7 days 28 tablet 01/28/2025 02/04/2025 Active Start: 11-15-2024 End: 01-02-2025 take 1 tablet by mouth four times daily as needed for pain HYDROcodone-acetaminophen (Hammond) 5-325 MG tablet Indications: Degenerative lumbar spinal stenosis Take 1 tablet by mouth 4 (four) times a day as needed for severe pain for up to 7 days 28 tablet 11/15/2024 11/22/2024 Active Start: 10-11-2024 End: 11-01-2024 take 1 tablet by mouth four times daily as needed for pain HYDROcodone-acetaminophen (Hammond) 5-325 MG tablet Indications: Degenerative lumbar spinal stenosis Take 1 tablet by mouth 4 (four) times a day as needed for severe pain for up to 7 days 28 tablet 10/25/2024 11/01/2024 Active Start: 04-23-2024 take 1 tablet by ambika th four times daily Hydrocodone-Acetaminophen Active 1 TAB P O Four times daily April 23, 2024 12:00am Hammond Active take 1 tablet by ambika th every six hours HYDROcodone-Acetaminophen 7.5-325 MG 1 tablet as needed Orally every 6 hrs Active albuterol 0.83 mg/ml inhalation solution (17 sources) beta2-Adrenergic Agonist Start: 03-25-2025 albut mati (2.5 MG/3ML) 0.083% nebulizer solution Indications: Chronic obstructive pulmonary disease, unspecified COPD type (CMS/HCC) Take 3 mL (2.5 mg) by nebulization every 4 (four) hours if needed for wheezing or shortness of breath 150 mL 2 03/25/2025 Active Start: 01-21-2025 take 2 puff(s) by in halation every four hours for wheezing albuterol HFA [...] 2 mg/ml injectable solution (1 source) vit D0-I9-B3-B5- B6 (B-COMPLEX INJECTION) 251-9-335-2-2 mg/mL solution B-Complex 1 QD 0 Active fluticasone propionate 0.05 mg/actuat metered dose nasal spray (20 sources) Corticosteroid Start: 03-04-2025 take 2 spray(s) nasal route once daily fluticasone (Flonase) 50 MCG/ACT nasal spray Indications: Chronic rhinosinusitis INSERT 2 (TWO) sprays in EACH nostril ONCE DAILY; Before first use, prime pump; After use, clean tip and replace cap 16 g 2 03/04/2025 Active Start: 10-25-2024 take 2 spray(s) nasa l route once daily fluticasone (Flonase) 50 MCG/ACT [...] succinate 25 mg extended release oral tablet (12 sources) beta-Adrenergic Daisy Start: 02-20-2025 take 1 [...] Multiple Vitamins-Minerals (men's 50+ multivitamin w/min) tablet (16 sources) take 1 tablet by mouth once daily Multiple Vitamins-Minerals (men's 50+ multivitamin w/min) tablet Take 1 tablet by mouth Daily Active Multivitamin preparation (7 sources) Start: take 1 tablet by mouth once daily Multivitamin Active 1 TAB PO Daily April 23, 2024 12:00am uxrvuekusptj-qdsviesg-ke tein (MULTIVITAMIN 50 PLUS) tablet (1 source) [...] 11-15-2022 take 2 tablets by mo [facility] three times daily PHENobarbitaL (LUMINAL) 32.4 [...] 1 08/30/2022 Active take 1 capsule by [facility] every twelve hours Phenytoin Sodium Extended [...] 2024 3:02pm spironolactone 25 mg oral tablet (9 sources) Aldosterone Antagonist Start: 02-20-2025 take 1 tablet by mouth once daily spironolactone (Aldactone) 25 MG tablet Indications: Bilateral leg edema Take 1 tablet (25 mg) by mouth Daily 30 tablet 3 02/20/2025 Active triamcinolone acetonide 5 mg/ml topical cream (7 sources) Corticosteroid Start: 02-21-2025 triamcinolone (Kenalog) 0.5 % cream Indications: Dyshidrotic eczema Apply topically 3 (three) times a day 60 g 2 02/21/2025 Active 7 actuat umeclidinium 0.0625 mg/actuat dry powder inhaler (4 sources) Anticholinergic Start: 03-28-2025 take 1 puff(s) by inhalation once daily Umeclidinium [place] (Incruse Ellipta) 62.5 MCG/ACT aerosol powder Indications: Chronic obstructive pulmonary disease, unspecified COPD type (CMS/HCC) Inhale 1 puff Daily 30 each 5 03/28/2025 Active vitamin b12 5 mg oral capsule [...] Active MEQ PO April 23, 2024 12:00am tiotropium 0.018 mg inhalation powder (1 source) Anticholinergic Start: 03-27-2025 End: 03-28-2025 take 1 capsule by inhalation in the morning tiotropium (Spiriva) 18 MCG inhalation capsule Indications: Chronic obstructive pulmonary disease, unspecified COPD type (CMS/HCC) Place 1 capsule (18 mcg) into inhaler and inhale in the morning. 30 capsule 5 03/27/2025 03/28/2025 Discontinued Problems Active Problems Problem Classification Problem Date [...] (1 source) H/O: malignant neoplasm 07-15-2023 Episodic Chronic obstructive pulmonary disease and bronchiectasis (9 sources) Chronic obstructive lung disease; Translations: [Chronic obstructive pulmonary disease, unspecified] Onset: 01-21-2025 02-28-2025 Chronic Conditions associated with dizziness or vertigo (4 sources) Dizziness and giddiness; Translations: [DIZZINESS AND GIDDINESS] Onset: 11-04-2022 Episodic Coronary atherosclerosis and other heart disease (20 sources) Atherosclerotic heart disease of [place] coronary artery without angina pectoris; Translations: [Coronary [...] epilepticus] Onset: 06-22-2022 04-23-2024 Chronic Essential hypertension (13 sources) Essential (primary) hypertension; Translations: [Benign essential [...] 08-16-2022 04-23-2024 Chronic Other aftercare (1 source) 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; Translations: [[facility] CURRENT USE OF ASPIRIN] Onset: 12-27-2022 Episodic Other aftercare (1 source) Other keno terminal operator (current) drug therapy; Translations: [OTH [facility] CURRENT DRUG THERAPY] Onset: 12-27-2022 Episodic [...] nutritional; endocrine; and metabolic disorders (20 sources) Severe obesity; Translations: [Class 3 severe obesity due to excess calories with serious comorbidity and body mass index (BMI) of 40.0 to 44.9 in adult ([facility])] Onset: 01-12-2021 11-22-2024 Chronic Other upper [...] unspecified; Translations: [Pain, unspecified] Onset: 12-20-2023 Episodic Respiratory failure; insufficiency; arrest (adult) (4 sources) Chronic hypoxemic respiratory failure; Translations: [Chronic respiratory failure with hypoxia] Onset: 04-02-2025 04-02-2025 Chronic Screening and history of mental health and [...] current use of drug therapy; Translations: [Other correction (current) drug therapy] Onset: 11-29-2023 11-29-2023 Episodic Other aftercare (20 sources) Post-discharge follow-up; Translations: [Encounter for follow-up examination after completed treatment for conditions other than malignant neoplasm] Onset: 01-11-2024 Resolved: 02-21-2024 02-21-2024 Episodic Other aftercare (1 source) Patient encounter status; Translations: [Other keno terminal operator (current) drug therapy] Onset: 11-29-2023 11-29-2023 Episodic [...] Test Name Value Interpretation Reference Range Facility EPITHELIAL CELLSon Epithelial cells LM Ql (Urine sed) Epithelial Cells Moderate [facility] No Panel Informationon 03-09 [facility] RESULT 1on 03-09-2025 RESULT 1 Result 1 Many gram positive cocci. [facility] RESULT 2on 03-09-2025 RESULT 2 Result 2 Few gram positive rods. [facility] RESULT 3on 03-09-2025 RESULT 3 Result 3 C 13 CATAPULT OPERATOR [facility] RESULT 4on 03-09-2025 RESULT 4 Result 4 C 13 CATAPULT OPERATOR [facility] WHITE BLOOD CELLSon 03-09-20 WHITE BLOOD CELLS White Blood Cells [facility] WHITE BLOOD CELLS Many [facility] ECG 12-LEADon 03-08-2025 [place] [address] Electrocardiograph Report Signed Patient: NAZARIO CORTES Jr. MR#: [id number] : 1955 Acct:[id number] Age/Sex: 70 / M ADM Date: 03/07/25 Loc: MS 219-[address]: Anson Manriquez M.D. Ordering Physician: Mariana Mazariegos Date of Service: 03/07/25 Procedure(s): ECG 12 lead Accession Number(s): [id number] cc: [facility] Test Date: 2025-03-07 Pat Name: NAZARIO CORTES Department: Room: - Gender: Male Licensed Massage Therapist: : 1955 Requested By: 0923 Order Number: [id number] Reading MD: COLE SMITH M.D. Measurements Intervals Swisher Rate: 78 P: 49 IA: 174 QRS: 16 QRSD: 84 T: 40 QT: 380 QTc: 414 Interpretive Statements 1100 Sinus rhythm 9110 normal ECG Compared to ECG 02/21/2025 11:34:46 No significant changes Electronically Signed On 03-08-2025 11:51:46 EDT by COLE SMITH M.D. Dictated By: COLE SMITH Signed By: 03/08/25 1152 DD/ 11 TD/TT: Electrical Project Engineer: [facility] Radiology, Radiologist, - 03/08/2025 [place] [address] Electrocardiograph Report Signed Patient: NAZARIO CORTES Jr. MR#: [id number] : 1955 Acct:[id number] Age/Sex: 70 / M ADM Date: 03/07/25 Loc: MS 219-[address]: Anson Manriquez M.D. Ordering Physician: Mariana Mazariegos Date of Service: 03/07/25 Procedure(s): ECG 12 lead Accession Number(s): [id number] cc: [facility] Test Date: 2025-03-07 Pat Name: NAZARIO CORTES Department: Room: - Gender: Male Licensed Massage Therapist: : 1955 Requested By: 0923 Order Number: [id number] Reading MD: COLE SMITH M.D. Measurements Intervals Swisher Rate: 78 P: 49 IA: 174 QRS: 16 QRSD: 84 T: 40 QT: 380 QTc: 414 Interpretive Statements 1100 Sinus rhythm 9110 normal ECG Compared to ECG 02/21/2025 11:34:46 No significant changes Electronically Signed On 03-08-2025 11:51:46 EDT by COLE SMITH M.D. Dictated By: COLE SMITH Signed By: 03/08/25 1152 DD/ 11 TD/TT: Electrical Project Engineer: [facility] ECG 12-LEADOrdered By: Radio logist Radiology on 03-08-2025 [facility] Work Phone: ECG 12-LEADon 03-07-2025 Radiology Study observation (narrative) [facility] RT PULMONARY FUNCTION TESTon 02-27-2025 The [place] [id number] Respiratory Report Signed Patient: NAZARIO CORTES Jr. MR#: [id number] : 1955 Acct:[id number] Age/Sex: 70 / M ADM Date: 02/22/25 Loc: CARD Attending Dr: Jignesh Gonsalez M.D. Ordering Physician: Jignesh Gonsalez M.D. Date of Service: 02/22/25 Procedure(s): RT pulmonary function test Accession Number(s): [id number] cc: [facility] Test Date: 2025-02-22 Pat Name: NAZARIO CORTES Department: Room: - Gender: Male Licensed Massage Therapist: Tommy FitchJEFRY : 1955 Requested By: JIGNESH GONSALEZ Order Number: [id number] Reading MD: Perfecto Portillo Interpretive Statements Pulmonary [...] By: Perfecto Portillo D.O. Signed By: 02/27/25 8987 DD/ 1252 TD/TT: Electrical Project Engineer: [facility] Radiology, Radiologist, MD - 02/27/2025 [place] [address] Respiratory Report Signed Patient: NAZARIO CORTES Jr. MR#: [id number] : 1955 Acct:[id number] Age/Sex: 70 / M ADM Date: 02/22/25 Loc: CARD Attending Dr: Jignesh Gonsalez M.D. Ordering Physician: Jignesh Gonsalez M.D. Date of Service: 02/22/25 Procedure(s): RT pulmonary function test Accession Number(s): [id number] cc: [facility] Test Date: 2025-02-22 Pat Name: NAZARIO CORTES Department: Room: - Gender: Male Licensed Massage Therapist: Tommy Fitch RRT : 1955 Requested By: JIGNESH GONSALEZ Order Number: [id number] Reading MD: Perfecto Portillo Interpretive Statements Pulmonary [...] Signed By: 02/27/25 1357 DD/ 1252 TD/TT: Electrical Project [facility] RT PULMONARY FUNCTION TESTOr dered By: Radiologist Radiology on 02-27-2025 [facility] [employer] Work Phone: RT PULMONARY FUNCTION TESTon 02-22-2025 Radiology Study observation (narrative) [facility] Healthcare Office Visiton 01-22-2025 Follow-up visit [id number] BaironNazario Jr. 1955 M Date Provider Department Center 01/22/2025 Lily-ARNAUD LYONS [facility] Hos Family History Problem Relation Age of Onset Supraventricular tachycardia Mother Stroke Father Kidney cancer Sister Diabetes Sister COPD Brother Family Status - Relation Status Age at Mother Father Sister Brother Level of Service:72732 [place] OFFICE/OUTPATIENT ESTABLISHED LOW MDM 20 MIN Normal [facility] BASIC METABOLIC PANELon - Anion gap [Moles/Vol] 11 mmol/L Normal 7-20 [facility] Comment on above: Performed By: #### L [id number] #### [facility] ([facility]) [address] [place] [address] Calcium [Mass/Vol] 8.8 mg/dL Normal 8.6-10.3 [facility] Comment on above: Performed By: #### L [id number] #### [facility] ([facility]) [address] [place] [address] Chloride [Moles/Vol] 104 mmol/L Normal 98-107 [facility] Comment on above: Performed By: #### L [id number] #### [facility] ([facility] [address] [place] [address] CO2 [Moles/Vol] 24 mmol/L Normal 21-31 [facility] Comment on above: Performed By: #### L [id number] #### [facility] ([facility]) [address] [place] [address] Creatinine [Mass/Vol] 0.81 mg/dL Normal 0.70-1.30 [facility] Comment on above: Performed By: #### L [id number] #### [facility] ([facility]) [address] [place] [address] GLOMERULAR FILTRATION RATE ML/MIN/1.73 SQ M.PREDICTED 95.4 mL/min/1.73m*2 Normal >60.0 [facility] Comment on above: Result Comment: The [facility]???s estimated glomerular filtration rate (eGFR) will no [...] individuals. Performed By: #### L [id number] #### [facility] ([facility]) [address] [place] [address] Glucose [Mass/Vol] 114 mg/dL High 70-100 [facility] Comment on above: Performed By: #### L [id number] #### [facility] ([facility]) [address] [place] [address] Potassium [Moles/Vol] 4.2 mmol/L Normal 3.5-5.1 [facility] Comment on above: Performed By: #### L [id number] #### [facility] ([facility]) [address] [place] [address] Sodium [Moles/Vol] 135 mmol/L Low 136-145 [facility] Comment on above: Performed By: #### L [id number] #### [facility] ([facility]) [address] [place] [address] Urea nitrogen [Mass/Vol] 23 mg/dL Normal 7-25 [facility] Comment on above: Performed By: #### L [id number] #### [facility] ([facility]) [address] [place] [address] UREA NITROGEN/CREATININE (MASS RATIO) IN SER/PLAS 28.4 Normal [facility] Comment on above: Performed By: #### L [id number] #### [facility] ([facility]) [address] [place] [address] FOLATEon 01-13-2025 FOLATE (NG/ML) IN SER/PLAS 20.54 ng/mL Normal 6.6-1000 [facility] Comment on above: Performed By: #### L [id number] #### [facility] ([facility]) [address] [place] [address] NURSNOTEon 01-13-2025 NURSNOTE Pt discharged with a ll belongings, discharge paperwork, and questions answered to pt's satisfaction. Normal [facility] VITAMIN B12on 01-13-2025 Cobalamin (Vitamin B12) [Mass/Vol] 353 pg/mL Normal 180-914 [facility] Comment on above: Result Comment: SUELLEN POOL RANGES: 180-914 pg/mL Normal 145-179 pg/mL Indeterminate <145 pg/mL Deficient Performed By: #### L [id number] #### [facility] ([facility]) [address] [place] [address] 30on 01-12-2025 30 The patient is Moderately [...] and behaviors that affect risk of falls Beaman fall precautions as indicated by assessment Educate [...] and prevent overall improvement and discharge Normal [facility] 30 The patient is Moderately Stable - Low risk of patient condition declining or worsening The patient's goals for the shift include comfort, rest The clinical goals for the shift include vss, safety Normal [facility] B-TYPE NATRIURETIC PEPTIDEon 01-12-2025 Natriuretic peptide B (Bld) [Mass/Vol] 34 pg/mL Normal 0-100 [facility] Comment on above: Performed By: #### L [id number] #### [facility] ([facility]) [address] [facility] [place] [address] BASIC METABOLIC PANELon 12-23 Anion gap [Moles/Vol] 10 mmol/L Normal 7-20 [facility] Comment on above: Performed By: #### L [id number] #### [facility] ([facility]) [address] [place] [address] Calcium [Mass/Vol] 8.4 mg/dL Low 8.6-10.3 [facility] Comment on above: Performed By: #### L [id number] #### [facility] ([facility]) [address] [place] [address] Chloride [Moles/Vol] 101 mmol/L Normal 98-107 [facility] Comment on above: Performed By: #### L [id number] #### [facility] ([facility]) [address] [place] [address] CO2 [Moles/Vol] 26 mmol/L Normal 21-31 [facility] Comment on above: Performed By: #### L [id number] #### [facility] ([facility]) [address] [place] [address] Creatinine [Mass/Vol] 0.79 mg/dL Normal 0.70-1.30 [facility] Comment on above: Performed By: #### L [id number] #### [facility] ([facility]) [address] [place] [address] GLOMERULAR FILTRATION RATE ML/MIN/1.73 SQ M.PREDICTED 96.2 mL/min/1.73m*2 Normal >60.0 [facility] Comment on above: Result Comment: The [facility]???s estimated glomerular filtration rate (eGFR) will no [...] individuals. Performed By: #### L [id number] #### [facility] ([facility]) [address] [place] [address] Glucose [Mass/Vol] 114 mg/dL High 70-100 [facility] Comment on above: Performed By: #### L [id number] #### [facility] ([facility]) [address] [place] [address] Potassium [Moles/Vol] 4.2 mmol/L Normal 3.5-5.1 [facility] Comment on above: Performed By: #### L [id number] #### [facility] ([facility]) [address] [place] [address] Sodium [Moles/Vol] 133 mmol/L Low 136-145 [facility] Comment on above: Performed By: #### L [id number] #### [facility] ([facility]) [address] [place] [address] Urea nitrogen [Mass/Vol] 20 mg/dL Normal 7-25 [facility] Comment on above: Performed By: #### L [id number] #### [facility] ([facility]) [address] [place] [address] UREA NITROGEN/CREATININE (MASS RATIO) IN SER/PLAS 25.3 Normal [facility] Comment on above: Performed By: #### L [id number] #### [facility] ([facility]) [address] [place] [address] CBCon 01-12-2025 Erythrocyte distribution width (RBC) [Ratio] 13.3 % Normal 11.5-15.0 [facility] Comment on above: Performed By: #### L [id number] #### [facility] ([facility]) [address] [place] [address] ERYTHROCYTE MEAN CORPUSCULAR HEMOGLOBIN CONCENTRATION (G/DL) BY AUTOMATED 32.7 g/dL Normal 32.0-35.0 [facility] Comment on above: Performed By: #### L [id number] #### [facility] ([facility]) [address] [place] [address] Hematocrit (Bld) [Volume fraction] 41.0 % Normal 39.0-55.0 [facility] Comment on above: Performed By: #### L [id number] #### [facility] ([facility]) [address] [place] [address] Hemoglobin (Bld) [Mass/Vol] 13.4 g/dL Normal 13.0-17.0 [facility] Comment on above: Performed By: #### L [id number] #### [facility] ([facility]) [address] [place] [address] MCH (RBC) [Entitic mass] 32.8 pg Normal 27.0-33.0 [facility] [place] Comment on above: Performed By: #### L [id number] #### [facility] ([facility]) [address] [place] [address] MCV (RBC) [Entitic vol] 100.2 fL High 82.0-98.0 [facility] [place] [facility] Comment on above: Performed By: #### L [id number] #### [facility] ([facility]) [address] [place] [address] PLATELETS (10*3/UL) IN BLOOD AUTOMATED COUNT 197 10*3/uL Normal 150-400 [facility] Comment on above: Performed By: #### L [id number] #### [facility] ([facility]) [address] [place] [address] RBC (Bld) [#/Vol] 4.09 10*6/uL Low 4.20-5.70 [facility] Comment on above: Performed By: #### L [id number] #### [facility] ([facility]) [address] [place] [address] WBC (Bld) [#/Vol] 8.31 10*3/uL Normal 4.00-10.60 [facility] Comment on above: Performed By: #### L [id number] #### [facility] ([facility]) [address] [place] [address] HEMOGLOBIN A1Con 01-12-2025 Glucose [Mass/Vol] 108 mg/dL Normal [facility] Comment on above: Performed By: #### L [id number] #### [facility] ([facility]) [address] [place] [address] HbA1c (Bld) [Mass fraction] 5.4 % Normal 4.0-6.0 [facility] Comment on above: Performed By: #### L [id number] #### [facility] ([facility]) [address] [place] [address] HEPATIC FUNCTION PANELon Albumin [Mass/Vol] 3.7 g/dL Normal 3.5-5.7 [facility] Comment on above: Performed By: #### L [id number] ####[facility] ([facility])[address] [place] [address] ALP [Catalytic activity/Vol] 152 U/L High 34-104 [facility] Comment on above: Performed By: #### L [id number] ####[facility] ([facility])[address] [place] [address] ALT [Catalytic activity/Vol] 20 U/L Normal 7-52 [facility] Comment on above: Performed By: #### L [id number] ####[facility] ([facility])[address] [place] [address] AST [Catalytic activity/Vol] 25 U/L Normal 13-39 [facility] Comment on above: Performed By: #### L [id number] ####[facility] ([facility])[address] [place] [address] Bilirubin [Mass/Vol] 0.5 mg/dL Normal 0.3-1.0 [facility] Comment on above: Performed By: #### L [id number] ####[facility] ([facility])[address] [place] [address] Magnesium [Mass/Vol] 0.1 mg/dL Normal 0-0.2 [facility] Comment on above: Performed By: #### L [id number] ####[facility] ([facility])[address] [place] [address] Protein [Mass/Vol] 8.1 g/dL Normal 6.0-8.3 [facility] Comment on above: Performed By: #### L [id number] ####[facility] ([facility])[address] [place] [address] LIPID PANELon 01-12-2025 CHOL/HDL 3.3 mg/dL Normal [facility] Comment on above: Performed By: #### L [id number] ####[facility] ([facility])[address] [place] [address] Cholesterol [Mass/Vol] 140 mg/dL Normal 120-200 [facility] Comment on above: Performed By: #### L [id number] ####[facility] ([facility])[address] [place] [address] Magnesium [Mass/Vol] 230 mg/dL High 40-149 [facility] Comment on above: Result Comment: TRIG LYCERIDE REFERENCE RANGE: 20 YEARS AND OLDER CARDIOVASCULAR RISK LESS THAN 150 mg/dL LOW RISK 150 TO 199 mg/dL BORDERLINE RISK 200 mg/dL AND GREATER HIGH RISK Performed By: #### L [id number] ####[facility] ([facility])[address] [place] [address] Magnesium [Mass/Vol] 51 mg/dL Normal 0-160 [facility] Comment on above: Performed By: #### L [id number] ####[facility] ([facility])[address] [place] [address] Magnesium [Mass/Vol] 43 mg/dL Normal 23-92 [facility] Comment on above: Performed By: #### L [id number] ####[facility] ([facility])[address] [place] [address] NON HDL CHOL. (LDL+VLDL) 97 Normal [facility] Comment on above: Performed By: #### L [id number] ####[facility] ([facility])[address] [place] [address] TOTAL VLDL-C 46 mg/dL High 0-40 [facility] Comment on above: Performed By: #### L [id number] ####[facility] ([facility])[address] [place] [address] MAGNESIUMon 01-12-2025 Magnesium [Mass/Vol] 1.9 mg/dL Normal 1.9-2.7 [facility] Comment on above: Performed By: #### L [id number] #### [facility] ([facility]) [address] [place] [address] 30on 01-11-2025 30 The patient is Moderately [...] and maintained or improved Outcome: Progressing Normal [facility] 30 Daily Case Managemen t Update Multidisciplinary rounds have been completed. Barriers to Discharge: Patient presented [facility] with [facility] pain, and was transferred to [facility] for heart cath. Patient [...] of Consultation Consultation and Management 01/11/25136 Normal [facility] 30 The patient is Moderately Stable - [...] and prevent overall improvement and discharge Normal [facility] 30 The patient is Moderately Stable - Low risk of patient condition declining or worsening The patient's goals for the shift include Comfort The clinical goals for the shift include VSS Normal [facility] ANESon 01-11-2025 ANES -- Attestation signed by Arnaud Lyons MD at 01/11/2025 1:02 PM Arnaud Lyons MD, MPH, [facility], [facility], [facility] Interventional Cardiology Pager Email: [email or web address] Patient: Nazario Cortes Procedure Information Date/Time: 01/11/25 1506 Procedure: Coronary angiography Location: [facility] [employer] 3 / [facility] (Cath) Providers: Arnaud Lyons [...] fellow and attending. Additional Equipment Requests Normal [facility] APTTon 01-11-2025 ACTIVATED PARTIAL THROMBOPLASTIN TIME IN PPP BY COAGULATION ASSAY 26.3 Seconds Normal 25.0-35.0 [facility] Comment on above: Order Comment: Basel ine aPTT before initiating heparin infusion. Result Comment: Clin ical significance of the APTT is questionable in the presence of heparin. Performed By: #### L [id number] #### [facility] ([facility]) [address] [place] [address] BASIC METABOLIC PANELon - Anion gap [Moles/Vol] 9 mmol/L Normal 7-20 [facility] Comment on above: Performed By: #### L [id number] #### [facility] ([facility]) [address] [place] [address] Calcium [Mass/Vol] 8.3 mg/dL Low 8.6-10.3 [facility] Comment on above: Performed By: #### L [id number] #### [facility] ([facility]) [address] [place] [address] Chloride [Moles/Vol] 103 mmol/L Normal 98-107 [facility] Comment on above: Performed By: #### L [id number] #### [facility] ([facility]) [address] [place] [address] CO2 [Moles/Vol] 26 mmol/L Normal 21-31 [facility] Comment on above: Performed By: #### L [id number] #### [facility] ([facility]) [address] [place] [address] Creatinine [Mass/Vol] 0.81 mg/dL Normal 0.70-1.30 [facility] Comment on above: Performed By: #### L [id number] #### [facility] ([facility]) [address] [place] [address] GLOMERULAR FILTRATION RATE ML/MIN/1.73 SQ M.PREDICTED 95.4 mL/min/1.73m*2 Normal >60.0 [facility] Comment on above: Result Comment: The [facility]???s estimated glomerular filtration rate (eGFR) will no [...] group of individuals. Performed By: #### L [id number] #### [facility] ([facility]) [address] [place] [address] Glucose [Mass/Vol] 105 mg/dL High 70-100 [facility] Comment on above: Performed By: #### L [id number] #### [facility] ([facility]) [address] [place] [address] Potassium [Moles/Vol] 4.1 mmol/L Normal 3.5-5.1 [facility] Comment on above: Performed By: #### L [id number] #### [facility] ([facility]) [address] [place] [address] Sodium [Moles/Vol] 134 mmol/L Low 136-145 [facility] Comment on above: Performed By: #### L [id number] #### [facility] ([facility]) [address] [place] [address] Urea nitrogen [Mass/Vol] 18 mg/dL Normal 7-25 [facility] Comment on above: Performed By: #### L [id number] #### [facility] ([facility]) [address] [place] [address] UREA NITROGEN/CREATININE (MASS RATIO) IN SER/PLAS 22.2 Normal [facility] Comment on above: Performed By: #### L [id number] #### [facility] ([facility]) [address] [facility] [place] [address] CBC WITH AUTO DIFFERENTIALon 01-11-2025 Basophils (Bld) [#/Vol] 0.08 10*3/uL Normal 0.00-0.20 [facility] Comment on above: Performed By: #### L [id number] #### [facility] ([facility]) [address] [facility] [place] [address] Basophils/100 WBC (Bld) 0.9 % Normal 0.0-1.0 [facility] Comment on above: Performed By: #### L [id number] #### [facility] ([facility]) [address] [place] [address] Eosinophils (Bld) [#/Vol] 0.56 10*3/uL High 0.00-0.50 [facility] Comment on above: Performed By: #### L [id number] #### [facility] ([facility]) [address] [place] [address] Eosinophils/100 WBC (Bld) 6.5 % High 0.0-6.0 [facility] Comment on above: Performed By: #### L [id number] #### [facility] ([facility]) [address] [place] [address] Erythrocyte distribution width (RBC) [Ratio] 13.5 % Normal 11.5-15.0 [facility] Comment on above: Performed By: #### L [id number] #### [facility] ([facility]) [address] [place] [address] ERYTHROCYTE MEAN CORPUSCULAR HEMOGLOBIN CONCENTRATION (G/DL) BY AUTOMATED 32.7 g/dL Normal 32.0-35.0 [facility] Comment on above: Performed By: #### L [id number] #### [facility] ([facility]) [address] [place] [address] Hematocrit (Bld) [Volume fraction] 39.8 % Normal 39.0-55.0 [facility] Comment on above: Performed By: #### L [id number] #### [facility] ([facility]) [address] [place] [address] Hemoglobin (Bld) [Mass/Vol] 13.0 g/dL Normal 13.0-17.0 [facility] Comment on above: Performed By: #### L [id number] #### [facility] ([facility]) [address] [place] [address] Immature granulocytes (Bld) [#/Vol] 0.06 10*3/uL Normal 0.00-0.20 [facility] Comment on above: Performed By: #### L [id number] #### [facility] ([facility]) [address] [place] [address] Immature granulocytes/100 WBC (Bld) 0.7 % Normal 0.0-1.0 [facility] Comment on above: Performed By: #### L [id number] #### [facility] [address] [place] [address] Lymphocytes (Bld) [#/Vol] 1.53 10*3/uL Normal 1.20-4.00 [facility] Comment on above: Performed By: #### L [id number] #### [facility] ([facility]) [address] [place] [address] Lymphocytes/100 WBC (Bld) 17.7 % Low 20.0-45.0 [facility] Comment on above: Performed By: #### L [id number] #### [facility] [address] [place] [address] MCH (RBC) [Entitic mass] 33.3 pg High 27.0-33.0 [facility] Comment on above: Performed By: #### L [id number] #### [facility] ([facility]) [address] [place] [address] MCV (RBC) [Entitic vol] 102.1 fL High 82.0-98.0 [facility] Comment on above: Performed By: #### L [id number] #### [facility] ([facility]) [address] [place] [address] Monocytes (Bld) [#/Vol] 0.78 10*3/uL Normal 0.10-1.00 [facility] Comment on above: Performed By: #### L [id number] #### [facility] ([facility]) [address] [place] [address] Monocytes/100 WBC (Bld) 9.0 % Normal 5.0-12.0 [facility] Comment on above: Performed By: #### L [id number] #### [facility] ([facility]) [address] [place] [address] Neutrophils (Bld) [#/Vol] 5.62 10*3/uL Normal 1.60-7.60 [facility] Comment on above: Performed By: #### L [id number] #### [facility] ([facility]) [address] [place] [address] Neutrophils/100 WBC (Bld) 65.2 % Normal 40.0-72.0 [facility] Comment on above: Performed By: #### L [id number] #### [facility] ([facility]) [address] [place] [address] NRBC (PER 100 WBCS) BY AUTOMATED COUNT 0.0 % Normal 0 [facility] Comment on above: Performed By: #### L [id number] #### [facility] ([facility]) [address] [place] [address] PLATELETS (10*3/UL) IN BLOOD AUTOMATED COUNT 187 10*3/uL Normal 150-400 [facility] Comment on above: Performed By: #### L [id number] #### [facility] ([facility]) [address] [place] [address] RBC (Bld) [#/Vol] 3.90 10*6/uL Low 4.20-5.70 [facility] Comment on above: Performed By: #### L [id number] #### [facility] ([facility]) [address] [place] [address] WBC (Bld) [#/Vol] 8.63 10*3/uL Normal 4.00-10.60 [facility] Comment on above: Performed By: #### L [id number] #### [facility] [address] [place] [address] CONSULTon 01-11-2025 CONSULT -- Attestation signed by [...] at least mild coronary artery disease at [facility]. Considering his current presentation we will obtain an echocardiogram. He already underwent cardiac angiogram on 01/11 which showed moderate but heavily calcified triple-vessel disease. He will also need aggressive medical therapy with aspirin, statin and likely colchicine as well in light of the recently published COL C OT trial. Darrell Thomas MD, ScM, MSc Cardiac Director Of Health Care Marketing Email: [email or web address] Cardiology Consult Note Reason for Consult: unstable angina HPI: Nazario Cortes is a 69 y.o. male with a past medical history significant for reported coronary artery disease (last cath showed 20-30% stenosis in 2008 at [facility]), hyperlipidemia, depression, and seizures. Reported tumor involving [...] chest pain. He was initially brought to [facility] and subsequently transferred to [facility] for cardiac catheterization. At present, the patient reports mild chest pain but denies shortness of breath, nausea, vomiting, dizziness, or palpitations. He reports a smoking history but quit in 1996. Blood pressure 142/84, heart rate 70s, EKG sinus rhythm with 1st degree AV block IA interval 210. Cardiology ROS: Negative except as [...] 40 mg, oral, Daily PRN HYDROcodone-acetaminop hen (Hammond) 5-325 mg tablet take 1 tablet by mouth four times a day if needed for severe pain for up to 7 days meclizine (Antivert) 25 mg tablet take 1 tablet by mouth four times a day if needed for dizziness methocarbamol (Robaxin) 750 mg tablet take 1 tablet by mouth four times a day if needed for muscle spasm sevqboeekkky-zxfo-muqe rals-folic acid (Multivitamin 50 Plus) tablet Every 24 hours nitroglycerin (NITROSTAT) 0.3 mg, sublingual PHENobarbital (LUMINAL) 64.8 mg, oral, 3 times daily RT phenytoin ER (Dilantin) 100 mg capsule take 2 capsules by mouth three times a day potassium chloride CR (K-Tab) 20 mEq ER table (more content not included)... [facility] HPon 01-11-2025 HP -- Attestation signed by [...] Additional Comments: Arnaud Lyons MD, MPH, FACC, [facility], [facility] Interventional Cardiology Pager Email: [email or web address] H&P reviewed. The patient was examined and there are no changes to the H&P. Will proceed with coronary angiogram for further assessment. Procedure's details, risks and benefits discussed with the patient and he's agreeable. Normal [facility] PLATELET COUNTon 01-11-2025 PLATELETS (10*3/UL) IN BLOOD AUTOMATED COUNT 177 10*3/uL Normal 150-400 [facility] Comment on above: Performed By: #### L [id number] #### [facility] ([facility]) [address] [place] [address] TROPONIN Ion 01-11-2025 Troponin I.cardiac [Mass/Vol] 0.01 ng/mL Normal 0.00-0.04 [facility] Comment on above: Performed By: #### L [id number] #### [facility] ([facility]) [address] [place] [address] Troponin I.cardiac [Mass/Vol] 0.01 ng/mL Normal 0.00-0.04 [facility] Comment on above: Performed By: #### L [id number] #### [facility] ([facility]) [address] [place] [address] Troponin I.cardiac [Mass/Vol] 0.01 ng/mL Normal 0.00-0.04 [facility] Comment on above: Performed By: #### L [id number] #### [facility] ([facility]) [address] [place] [address] No Panel InformationOrdered By: Fay Adhikari on 11-27-2024 [facility] Rad[facility] Study observation (narrative) [facility] XR knee RT 4V*on 10-17-2024 XR knee RT 4V* [facility] [place] [address] XRay Report Signed Patient: Nazario Cortes Jr MR#: [id number] : 1955 Acct:[id number] Age/Sex: 69 / M ADM Date: 10/17/24 Loc: XDUCLY [facility]: [facility] Attending Dr: Yancy Lawson CASTING AGENT Copies to: Yancy Lawson APRN Ordering Provider: [...] Hoa Lockwood M.D.10/17/2024 2:40 PM Dictation Location: [place] [address] Transcribed By: [facility] 10/17/24 1440 Dictated By: Hoa Lockwood MD 10/17/24 1438 Signed By: 10/17/24 1440 Normal [facility] XR knee RT 4V*on 09-07-2024 XR knee RT 4V* [facility] Main [place] [address] [place] [address] XRay Report Signed Patient: Nazario Cortes Jr MR#: [id number] : 1955 Acct:[id number] Age/Sex: 69 / M ADM Date: 09/07/24 Loc: XDUCLY Room: Type: [facility] Attending Dr: Joslyn Garcia APRN Copies [...] [facility] Transcribed By: PWS 09/07/241614 Dictated By: Bar Ching Jr, DO 09/07/24 161 Signed By: 09/07/24 161 Normal [facility] Influenza virus A and B and SARS-CoV-2 (COVID-19) RNA panel - Respiratory system specon 08-16-2024 Influenza virus A and B RNA and SARS-CoV-2 (COVID-19) N gene panel ALEX+probe (Resp) Negative [facility] - Microbiology an d Antimicrobial susceptibilityon 08-16-2024 SARS-CoV-2 (COVID-19) RNA ALEX+probe Ql (Unsp spec) Negative [facility] No Panel Informationon 08-16 POC Influenza B (ALEX) Negative [facility] Follow-Upon 08-08-2024 Follow-Up [id number] Nazario Cortes 1955 M Date Provider Department Center 08/08/2024 CORNELIO NEGRON [facility] [place] Family History Problem Relation Age of Onset Supraventricular tachycardia Mother Stroke Father Kidney cancer Sister Diabetes Sister COPD Brother Family Status - Relation Status Age at Mother Father Sister Brother Level of Service:36727 [place] OFFICE/OUTPATIENT ESTABLISHED MOD MDM 30 MIN Reason for Visit and Comments: Follow-up [820761] - Pt is here for a follow up visit for Lumbar Stenosis. Normal [facility] 36on 07-30-2024 36 Talked to patient. Advised [...] ongoing issues. Verbalizes understanding. Normal [facility] Telephoneon 07-30-2024 Telephone [id number] Nazario Cortes 1955 M Date Provider Department Center 07/30/2024 Oscar-CORNELIO HODGES [facility] SUR[facility] [place] Family History Problem Relation Age of Onset Supraventricular tachycardia Mother Stroke Father Kidney cancer Sister Diabetes Sister COPD Brother Family Status - Relation Status Age at Mother Father Sister Brother Normal [facility] MR CERVICAL SPINE W AND WO C [facility] 07-26-2024 MR CERVICAL SPINE W AND [...] Not Vldtd Invalid Interpretation Code [facility] XR elbow LT min 3V*on 2023 XR elbow LT min 3V* [facility] Main [place] [id number] XRay Report Signed Patient: Nazario Cortes Jr MR#: [id number] : 1955 Acct:[id number] Age/Sex: 69 / M ADM Date: 05/15/24 Loc: XDUCLY Room: Type: [facility] Attending Dr: Joslyn Garcia CASTING AGENT Copies to: Joslyn Garcia APRN Ordering Provider: [...] Zain Fitzpatrick M.D.05/15/2024 4:23 PM Dictation Location: [place] [address] Transcribed By: [facility] 05/15/24 1623 Dictated By: Zain Fitzpatrick DO 05/15/24 1621 Signed By: 05/15/24 1623 Normal [facility] Orders Onlyon 04-11-2024 Orders Only [id number] Nazario Cortes 1955 M Date Provider Department Center 04/11/2024 [id number], HISTORICAL [facility] Family History Problem Relation Age of Onset Supraventricular tachycardia Mother Stroke Father Kidney cancer Sister Diabetes Sister COPD Brother Family Status - Relation Status Age at Mother Father Sister Brother Normal [facility] [place] CAROTID ART BILon 023 US CAROTID [...] : DR JIGNESH GONSALEZ . Admission #: [id number] Family : Order #: [id number] CLICK HERE TO VIEW EXAM ECHOCARDIOGRAM REPORT [...] radial head fracture. Electronically authenticated by: [employer] Date: 2022-12-24 20:23 Normal [facility] [...] acute fracture or malalignment. Electronically authenticated by: [facility] HealthRAIN Date: 2022-12-24 20:21 Normal [facility] XR HUMERUS LT MIN [...] KELL DELANEY Date: 2022-12-24 21:03 Normal [facility] CBC AUTO DIFFon 11-04-2022 BASO # 0.1 103/ul Normal 0.0-0.1 [facility] Comment on above: Performed By: #### B MP, CMREP, LIPID #### [facility] [address] [place] [address] Dr. Jeimy Tenorio Basophils/100 WBC (Bld) 0.9 % Normal 0.2-2.0 [facility] Comment on above: Performed By: #### B MP, CMREP, LIPID #### [facility] [address] [place] [address] Dr. Jeimy Tenorio EO # 0.3 103/ul Normal 0.0-0.7 [facility] Comment on above: Performed By: #### B MP, CMREP, LIPID #### [facility] [address] [place] [address] Dr. Jeimy Tenorio Eosinophils/100 WBC (Bld) 5.2 % Normal 0.9-7.0 [facility] Comment on above: Performed By: #### B MP, CMREP, LIPID #### [facility] [address] [place] [address] Dr. Jeimy Tenorio Erythrocyte distribution width (RBC) [Ratio] 12.9 % Normal 11.0-15.0 [facility] Comment on above: Performed By: #### B MP, CMREP, LIPID #### [facility] [address] [place] [address] Dr. Jeimy Tenorio Hematocrit (Bld) [Volume fraction] 39.5 % Critically low 42.0-54.0 [facility] Comment on above: Performed By: #### B MP, CMREP, LIPID #### [facility] [address] [place] [address] Dr. Jeimy Tenorio Hemoglobin (Bld) [Mass/Vol] 13.1 g/dL Critically low 14.0-18.0 [facility] Comment on above: Performed By: #### B MP, CMREP, LIPID #### [facility] [address] [place] [address] Dr. Jeimy Tenorio IG # 0.03 10e3/ul Normal 0.00-0.03 [facility] Comment on above: Performed By: #### B MP, CMREP, LIPID #### [facility] [address] [place] [address] Dr. Jeimy Tenorio IG % 0.5 % Normal 0.0-0.5 [facility] Comment on above: Performed By: #### B MP, CMREP, LIPID #### [facility] [address] [place] [address] Dr. Jeimy Tenorio LYMPH # 1.5 103/ul Normal 1.2-3.8 [facility] Comment on above: Performed By: #### B MP, CMREP, LIPID #### [facility] [address] [place] [address] Dr. Jeimy Tenorio Lymphocytes/100 WBC (Bld) 22.6 % Normal 20.5-60.0 [facility] Comment on above: Performed By: #### B MP, CMREP, LIPID #### [facility] [address] [place] [address] Dr. Jeimy Tenorio MANUAL DIFF REQ NO Normal [facility] Comment on above: Performed By: #### B MP, CMREP, LIPID #### [facility] [address] [place] [address] Dr. Jeimy Tenorio MCH (RBC) [Entitic mass] 32.8 pg Normal 25.9-34.0 [facility] Comment on above: Performed By: #### B MP, CMREP, LIPID #### [facility] [address] [place] [address] Dr. Jeimy Tenorio MCHC (RBC) [Mass/Vol] 33.2 g/dL Normal 29.9-35.2 [facility] Comment on above: Performed By: #### B MP, CMREP, LIPID #### [facility] [address] [place] [address] Dr. Jeimy Tenorio MCV (RBC) [Entitic vol] 99.0 fL Critically high 80.0-94.0 [facility] Comment on above: Performed By: #### B MP, CMREP, LIPID #### [facility] [address] [place] [address] Dr. Jeimy Tenorio MONO # 0.7 103/ul Normal 0.3-0.8 [facility] Comment on above: Performed By: #### B MP, CMREP, LIPID #### [facility] [address] [place] [address] Dr. Jeimy Tenorio Monocytes/100 WBC (Bld) 10.6 % Normal 1.7-12.0 [facility] Comment on above: Performed By: #### B MP, CMREP, LIPID #### [facility] [address] [place] [address] Dr. Jeimy Tenorio NEUT # 4.0 103/ul Normal 1.4-6.5 [facility] Comment on above: Performed By: #### B MP, CMREP, LIPID #### [facility] [address] [place] [address] Dr. Jeimy Tenorio Neutrophils/100 WBC (Bld) 60.2 % Normal 43.0-75.0 [facility] Comment on above: Performed By: #### B MP, CMREP, LIPID #### [facility] [address] [place] [address] Dr. Jeimy Tenorio Platelet mean volume (Bld) [Entitic vol] 9.7 fL Normal 9.5-13.5 [facility] Comment on above: Performed By: #### B MP, CMREP, LIPID #### [facility] [address] [place] [address] Dr. Jeimy Tenorio PLT 176 103/ul Normal 150-450 [facility] Comment on above: Performed By: #### B MP, CMREP, LIPID #### [facility] [address] [place] [address] Dr. Jeimy Tenorio RBC 3.99 106/ul Critically low 4.70-6.10 [facility] Comment on above: Performed By: #### B MP, CMREP, LIPID #### [facility] [address] [place], [place] [address] Dr. Jeimy Tenorio WBC 6.6 103/ul Normal 4.0-11.0 [facility] Comment on above: Performed By: #### B MP, CMREP, LIPID #### [facility] [address] [place], [place] [address] HEAD WO CONon [...] ALEJANDRO PINEDA Date: 2022-11-04 14:08 Normal [facility] Covid-19 PCR (CVDTB)on 10-21 SARS-CoV-2 (COVID-19) RNA ALEX+probe Ql (Unsp spec) Not detected Normal NOT DETECTED [facility] Comment on above: Result Comment: This test is not yet approved or cleared by the [place] FDA. When there are no FDA-approved or cleared tests available, and other criteria are met, FDA can make tests available under an emergency access mechanism called an Emergency Use Authorization (EUA). The EUA for this test is supported by the [place] of Health and Human Service's (HHS's) declaration [...] By: #### B MP, CMREP, LIPID #### [facility] [address] [place] [address] Dr. Jeimy Tenorio INFLUENZA A AND B [facility] 11-04 [facility] SEE BELOW Normal [facility] Comment on above: Result Comment: Nega tive for Flu A protein angiten. Infection due to Flu A cannot be ruled out. Flu A angiten in the sample may be below the detection limit of the test. Performed By: #### I NFLUAB #### [facility] [address] [place] [address] Dr. [facility] Normal [facility] Comment on above: Result Comment: Nega tive for Flu B protein antigen. Infection due to Flu B cannot be ruled out. Flu B antigen in the sample may be below the detection limit of the test. Performed By: #### I NFLUAB #### [facility] [address] [place] [address] Dr. Jeimy Tenorio INFLUENZA A AG Negative Normal NEGATIVE SEE COMMENT [facility] Comment on above: Performed By: #### I NFLUAB #### [facility] [address] [place] [address] Dr. Jeimy Tenorio INFLUENZA B AG Negative Normal NEGATIVE SEE COMMENT [facility] Comment on above: Performed By: #### I NFLUAB #### [facility] [address] [place] [address] Dr. Jeimy Tenorio INTERNAL CONTROLS Within Normal Limits Normal Wi thin Normal Limits [facility] Comment on above: Performed By: #### I NFLUAB #### [facility] [address] [place] [address] Dr. Jeimy Tenorio PROF CHEM 8 (BAS METB)on Anion gap [Moles/Vol] 9.7 mmol/L Normal [facility] Comment on above: Performed By: #### C BC #### [facility] [address] [place] [address] Dr. Jeimy Tenorio Calcium [Mass/Vol] 8.0 mg/dL Critically low 8.5-10.1 [facility] Comment on above: Performed By: #### C BC #### [facility] [address] [place] [address] Dr. Jeimy Tenorio Chloride [Moles/Vol] 104 mmol/L Normal 98-107 [facility] Comment on above: Performed By: #### C BC #### [facility] [address] [place] [address] Dr. Jeimy Tenorio CO2 [Moles/Vol] 31.1 mmol/L Normal 21.0-32.0 [facility] Comment on above: Performed By: #### C BC #### [facility] [address] [place] [address] Dr. Jeimy Tenorio Creatinine [Mass/Vol] 0.75 mg/dL Normal 0.70-1.30 [facility] Comment on above: Performed By: #### C BC #### [facility] [address] [place] [address] Dr. Jeimy Tenorio EGFR-AF KENYAN >60 Normal >=60 [facility] Comment on above: Performed By: #### C BC #### [facility] [address] [place] [address] Dr. Jeimy Tenorio EGFR-NON AF KENYAN >60 Normal >=60 [facility] Comment on above: Performed By: #### C BC #### [facility] [address] [place] [address] Dr. Jeimy Tenorio Glucose [Mass/Vol] 76 mg/dL Normal 74-106 [facility] Comment on above: Performed By: #### C BC #### [facility] [address] [address] [address] Jeimy Tenorio Potassium [Moles/Vol] 3.8 mmol/L Normal 3.5-5.1 [facility] Comment on above: Performed By: #### C BC #### [facility] [address] [address] [address] Jeimy Tenorio Sodium [Moles/Vol] 141 mmol/L Normal 136-145 [facility] Comment on above: Performed By: #### C BC #### [facility] [address] [address] [address] Jeimy Tenorio Urea nitrogen [Mass/Vol] 12.0 mg/dL Normal 7.0-18.0 [facility] Comment on above: Performed By: #### C BC #### [facility] [address] [address] [address] Jeimy Tenorio Urea nitrogen/Creatinine [Mass ratio] 16.0 mg/mg Normal [facility] Comment on above: Performed By: #### C BC #### [facility] [address] [address] [address] Jeimy Tenorio TROPONIN, HIGH SENSITIVITYon 11-04-2022 [...] DIAGNOSIS. Performed By: #### C BC #### [facility] [address] [address] [address] Jeimy Tenorio CBC AUTO DIFFon 09-29-2022 BASO # 0.1 103/ul Normal 0.0-0.1 [facility] Comment on above: Performed By: #### B MP, CMREP, LIPID #### [facility] [address] [address] [address] Jeimy Tenorio Basophils/100 WBC (Bld) 1.2 % Normal 0.2-2.0 [facility] Comment on above: Performed By: #### B MP, CMREP, LIPID #### [facility] [address] [place] [address] Dr. Jeimy Tenorio EO # 0.3 103/ul Normal 0.0-0.7 [facility] Comment on above: Performed By: #### B MP, CMREP, LIPID #### [facility] [address] [place] [address] Dr. Jeimy Tenorio Eosinophils/100 WBC (Bld) 4.9 % Normal 0.9-7.0 [facility] Comment on above: Performed By: #### B MP, CMREP, LIPID #### [facility] [address] [place] [address] Dr. Jeimy Tenorio Erythrocyte distribution width (RBC) [Ratio] 13.2 % Normal 11.0-15.0 [facility] Comment on above: Performed By: #### B MP, CMREP, LIPID #### [facility] [address] [place] [address] Dr. Jeimy Tenorio Hematocrit (Bld) [Volume fraction] 42.3 % Normal 42.0-54.0 [facility] Comment on above: Performed By: #### B MP, CMREP, LIPID #### [facility] [address] [place] [address] Dr. Jeimy Tenorio Hemoglobin (Bld) [Mass/Vol] 13.8 g/dL Critically low 14.0-18.0 [facility] Comment on above: Performed By: #### B MP, CMREP, LIPID #### [facility] [address] [place] [address] Dr. Jeimy Tenorio IG # 0.02 10e3/ul Normal 0.00-0.03 [facility] Comment on above: Performed By: #### B MP, CMREP, LIPID #### [facility] [address] [place] [address] Dr. Jeimy Tenorio IG % 0.3 % Normal 0.0-0.5 [facility] Comment on above: Performed By: #### B MP, CMREP, LIPID #### [facility] [address] [place] [address] Dr. Jeimy Tenorio LYMPH # 1.3 103/ul Normal 1.2-3.8 [facility] Comment on above: Performed By: #### B MP, CMREP, LIPID #### [facility] [address] [place] [address] Dr. Jeimy Tenorio Lymphocytes/100 WBC (Bld) 19.5 % Critically low 20.5-60.0 [facility] Comment on above: Performed By: #### B MP, CMREP, LIPID #### [facility] [address] [place] [address] Dr. Jeimy Tenorio MANUAL DIFF REQ NO Normal [facility] Comment on above: Performed By: #### B MP, CMREP, LIPID #### [facility] [address] [place] [address] Dr. Jeimy Tenorio MCH (RBC) [Entitic mass] 32.9 pg Normal 25.9-34.0 [facility] Comment on above: Performed By: #### B MP, CMREP, LIPID #### [facility] [address] [place] [address] Dr. Jeimy Tenorio MCHC (RBC) [Mass/Vol] 32.6 g/dL Normal 29.9-35.2 [facility] Comment on above: Performed By: #### B MP, CMREP, LIPID #### [facility] [address] [place] [address] Dr. Jeimy Tenorio MCV (RBC) [Entitic vol] 100.7 fL Critically high 80.0-94.0 [facility] Comment on above: Performed By: #### B MP, CMREP, LIPID #### [facility] [address] [place] [address] Dr. Jeimy Tenorio MONO # 0.7 103/ul Normal 0.3-0.8 [facility] Comment on above: Performed By: #### B MP, CMREP, LIPID #### [facility] [address] [place] [address] Dr. Jeimy Tenorio Monocytes/100 WBC (Bld) 9.9 % Normal 1.7-12.0 [facility] Comment on above: Performed By: #### B MP, CMREP, LIPID #### [facility] [address] [place] [address] Dr. Jeimy Tenorio NEUT # 4.3 103/ul Normal 1.4-6.5 [facility] Comment on above: Performed By: #### B MP, CMREP, LIPID #### [facility] [address] [place] [address] Dr. Jeimy Tenorio Neutrophils/100 WBC (Bld) 64.2 % Normal 43.0-75.0 [facility] Comment on above: Performed By: #### B MP, CMREP, LIPID #### [facility] [address] [place] [address] Dr. Jeimy Tenorio Platelet mean volume (Bld) [Entitic vol] 10.4 fL Normal 9.5-13.5 [facility] Comment on above: Performed By: #### B MP, CMREP, LIPID #### [facility] [address] [place] [address] Dr. Jeimy Tenorio PLT 209 103/ul Normal 150-450 [facility] Comment on above: Performed By: #### B MP, CMREP, LIPID #### [facility] [address] [place] [address] Dr. Jeimy Tenorio RBC 4.20 106/ul Critically low 4.70-6.10 [facility] Comment on above: Performed By: #### B MP, CMREP, LIPID #### [facility] [address] [place] [address] Dr. Jeimy Tenorio WBC 6.7 103/ul Normal 4.0-11.0 [facility] Comment on above: Performed By: #### B MP, CMREP, LIPID #### [facility] [address] [place] [address] Dr. Jeimy BURKETTANTINon 09-29-2022 Phenytoin [Mass/Vol] 23.7 ug/mL Critically high 10.0-20.0 [facility] Comment on above: Performed By: #### C BC #### [facility] [address] [address] [address] Jeimy Tenorio GLYCOHEMOGLOBIN A1Con 2021 ADA RECOMMENDATION SEE BELOW Normal [facility] Comment on above: Result Comment: ADA RECOMMENDED LIMIT 4.0 - 6.0 ADA THERAPEUTIC TARGET < 7.0 ACTION SUGGESTED > 7.0 Performed By: #### A 1C #### [facility] [address] [address] [address] Jeimy Tenorio Glucose [Mass/Vol] 105 mg/dL Normal [facility] Comment on above: Performed By: #### A 1C #### [facility] [address] [address] [address] Jeimy Tenorio HbA1c (Bld) [Mass fraction] 5.3 % Normal 4.5-6.2 [facility] Comment on above: Performed By: #### A 1C #### [facility] [address] [place] [address] Dr. Jeimy Tenorio LIPID PROFILEon 09-29-2022 CHOL-HDL RATIO NORM SEE BELOW Normal [facility] Comment on above: Result Comment: 3.3 - 4.4 LOW RISK 4.4 - 7.1 AVERAGE RISK 7.1 - 11.0 MODERATE RISK >11.0 HIGH RISK Performed By: #### B MP, CMREP, LIPID #### [facility] [address] [place] [address] Dr. Jeimy Tenorio Cholesterol [Mass/Vol] 178 mg/dL Normal <=200 [facility] Comment on above: Performed By: #### B MP, CMREP, LIPID #### [facility] [address] [address] [address] Jeimy Tenorio Cholesterol in HDL [Mass/Vol] 56 mg/dL Normal 40-60 [facility] Comment on above: Performed By: #### B MP, CMREP, LIPID #### [facility] [address] [address] [address] Jeimy Tenorio Cholesterol in LDL [Mass/Vol] 86.8 mg/dL Normal [facility] Comment on above: Performed By: #### B MP, CMREP, LIPID #### [facility] [address] [address] [address] Jeimy Tenorio Cholesterol.total/Cho lesterol in HDL [Mass ratio] 3.2 {ratio} Normal [facility] Comment on above: Performed By: #### B MP, CMREP, LIPID #### [facility] [address] [address] [address] Jeimy Tenorio HDL NORMAL > or = 60 mg/dl - LO W CARDIOVASCULAR RISK <40 mg/dl - HIGH CARDIOVASCULAR RISK Normal [facility] Comment on above: Performed By: #### B MP, CMREP, LIPID #### [facility] [address] [address] [address] Jeimy Tenorio LDL CALC NORMAL SEE BELOW Normal [facility] Comment on above: Result Comment: <100 mg/dl OPTIMAL 100 - 129 mg/dl NEAR OR ABOVE OPTIMAL 130 - 159 mg/dl BORDERLINE HIGH 160 - 189 mg/dl HIGH >190 mg/dl VERY HIGH Performed By: #### B MP, CMREP, LIPID #### [facility] [address] [place] [address] Dr. Jeimy Tenorio Triglyceride [Mass/Vol] 176 mg/dL Critically high <=150 [facility] Comment on above: Performed By: #### B MP, CMREP, LIPID #### [facility] [address] [place] [address] Dr. Jeimy Tenorio VLDL CALC 35.2 mg/dL Normal [facility] Comment on above: Performed By: #### B MP, CMREP, LIPID #### [facility] [address] [address] [address] Jeimy Tenorio LIVER PROFILEon 09-29-2022 Albumin [Mass/Vol] 3.5 g/dL Normal 3.4-5.0 [facility] Comment on above: Performed By: #### B MP, CMREP, LIPID #### [facility] [address] [place] [address] Dr. Jeimy Tenorio Albumin/Globulin [Mass ratio] 0.8 {ratio} Normal [facility] Comment on above: Performed By: #### B MP, CMREP, LIPID #### [facility] [address] [address] [address] Jeimy Tenorio ALP [Catalytic activity/Vol] 139 U/L Critically high 46-116 [facility] Comment on above: Performed By: #### B MP, CMREP, LIPID #### [facility] [address] [address] [address] Jeimy Tenorio ALT [Catalytic activity/Vol] 25 U/L Normal 16-63 [facility] Comment on above: Performed By: #### B MP, CMREP, LIPID #### [facility] [address] [address] [address] Jeimy Tenorio AST [Catalytic activity/Vol] 23 U/L Normal 15-37 [facility] Comment on above: Performed By: #### B MP, CMREP, LIPID #### [facility] [address] [place] [address] Dr. Jeimy Tenorio BILI, CONJUGATED 0.0 mg/dL Normal 0.0-0.2 [facility] Comment on above: Performed By: #### B MP, CMREP, LIPID #### [facility] [address] [address] [address] Jeimy Tenorio Bilirubin [Mass/Vol] 0.3 mg/dL Normal 0.2-1.0 [facility] Comment on above: Performed By: #### B MP, CMREP, LIPID #### [facility] [address] [place] [address] Dr. Jeimy Tenorio Globulin (S) [Mass/Vol] 4.3 g/dL Normal [facility] Comment on above: Performed By: #### B MP, CMREP, LIPID #### [facility] [address] [address] [address] Jeimy Tenorio Protein [Mass/Vol] 7.8 g/dL Normal 6.4-8.2 [facility] Comment on above: Performed By: #### B MP, CMREP, LIPID #### [facility] [address] [place] [address] Dr. Jeimy Tenorio PROF CHEM 8 (BAS METB)on Anion gap [Moles/Vol] 8.7 mmol/L Normal [facility] Comment on above: Performed By: #### B MP, CMREP, LIPID #### [facility] [address] [place] [address] Dr. Jeimy Tenorio Calcium [Mass/Vol] 8.7 mg/dL Normal 8.5-10.1 [facility] Comment on above: Performed By: #### B MP, CMREP, LIPID #### [facility] [address] [place] [address] Dr. Jeimy Tenorio Chloride [Moles/Vol] 104 mmol/L Normal 98-107 [facility] Comment on above: Performed By: #### B MP, CMREP, LIPID #### [facility] [address] [place] [address] Dr. Jeimy Tenorio CO2 [Moles/Vol] 29.8 mmol/L Normal 21.0-32.0 [facility] Comment on above: Performed By: #### B MP, CMREP, LIPID #### [facility] [address] [place] [address] Dr. Jeimy Tenorio Creatinine [Mass/Vol] 0.76 mg/dL Normal 0.70-1.30 [facility] Comment on above: Performed By: #### B MP, CMREP, LIPID #### [facility] [address] [place] [address] Dr. Jeimy Tenorio EGFR-AF KENYAN >60 Normal >=60 [facility] Comment on above: Performed By: #### B MP, CMREP, LIPID #### [facility] [address] [place] [address] Dr. Jeimy Tenorio EGFR-NON AF KENYAN >60 Normal >=60 [facility] Comment on above: Performed By: #### B MP, CMREP, LIPID #### [facility] [address] [place] [address] Dr. Jeimy Tenorio Glucose [Mass/Vol] 95 mg/dL Normal 74-106 [facility] Comment on above: Performed By: #### B MP, CMREP, LIPID #### [facility] [address] [place] [address] Dr. Jeimy Tenorio Potassium [Moles/Vol] 4.5 mmol/L Normal 3.5-5.1 [facility] Comment on above: Performed By: #### B MP, CMREP, LIPID #### [facility] [address] [address] [address] Jeimy Tenorio Sodium [Moles/Vol] 138 mmol/L Normal 136-145 [facility] Comment on above: Performed By: #### B MP, CMREP, LIPID #### [facility] [address] [address] [address] Jeimy Tenorio Urea nitrogen [Mass/Vol] 18.0 mg/dL Normal 7.0-18.0 [facility] Comment on above: Performed By: #### B MP, CMREP, LIPID #### [facility] [address] [place] [address] Dr. Jeimy Tenorio Urea nitrogen/Creatinine [Mass ratio] 23.7 mg/mg Normal [facility] Comment on above: Performed By: #### B MP, CMREP, LIPID #### [facility] [address] [place] [address] Dr. Jeimy Tneorio TSHon 09-29-2022 TSH 1.694 uIU/mL Normal 0.358-3.740 [facility] Comment on above: Performed By: #### B MP, CMREP, LIPID #### [facility] [address] [place] [address] Dr. Jeimy Tenorio CARDIAC SAWYER 3-6on 2 CK [Catalytic activity/Vol] 47 U/L Normal 39-308 [facility] Comment on above: Performed By: #### B MP, CMREP, LIPID #### [facility] [address] [place] [address] Dr. Jeimy Tenorio CK.MB [Mass/Vol] 0.77 ng/mL Normal <=3.60 [facility] Comment on above: Performed By: #### B MP, CMREP, LIPID #### [facility] [address] [address] [address] Jeimy Tenorio HSTROP 6.9 pg/mL Normal 4.0-76.1 [facility] Comment on above: Result Comment: CUT- OFF POINTS HAVE BEEN ESTABLISHED BASED ON THE FOURTH UNIVERSAL DEFINITIONS OF MYOCARDIAL INFARCTION. THE UPPER REFERENCE LIMIT (URL) OF TROPONIN, DEFINED THE 99TH PERCENTILE OF cTnI DISTRIBUTION IN A REFERENCE POPULATION, HAS BEEN CONFIRMED THE DECISION THRESHOLD FOR [place] DIAGNOSIS. Performed By: #### B MP, CMREP, LIPID #### [facility] [address] [place] [address] Dr. Jeimy Tenorio CK [Catalytic activity/Vol] 53 U/L Normal 39-308 [facility] Comment on above: Performed By: #### C BC #### [facility] [address] [place] [address] Dr. Jeimy YOUNG.MB [Mass/Vol] 0.80 ng/mL Normal <=3.60 [facility] Comment on above: Performed By: #### C BC #### [facility] [address] [place] [address] Dr. Jeimy Tenorio HSTROP 6.2 pg/mL Normal [...] DIAGNOSIS. Performed By: #### C BC #### [facility] [address] [place] [address] Dr. Jeimy Tenorio CBC AUTO DIFFon 06-12-2022 BASO # 0.1 103/ul Normal 0.0-0.1 [facility] Comment on above: Performed By: #### C BC #### [facility] [address] [place] [address] Dr. Jeimy Tenorio Basophils/100 WBC (Bld) 0.9 % Normal 0.2-2.0 [facility] Comment on above: Performed By: #### C BC #### [facility] [address] [place] [address] Dr. Jeimy Tenorio EO # 0.3 103/ul Normal 0.0-0.7 [facility] Comment on above: Performed By: #### C BC #### [facility] [address] [place] [address] Dr. Jeimy Tenorio Eosinophils/100 WBC (Bld) 5.2 % Normal 0.9-7.0 [facility] Comment on above: Performed By: #### C BC #### [facility] [address] [place] [address] Dr. Jeimy Tenorio Erythrocyte distribution width (RBC) [Ratio] 13.0 % Normal 11.0-15.0 [facility] Comment on above: Performed By: #### C BC #### [facility] [address] [place] [address] Dr. Jeimy Tenorio Hematocrit (Bld) [Volume fraction] 39.1 % Critically low 42.0-54.0 [facility] Comment on above: Performed By: #### C BC #### [facility] [address] [place] [address] Dr. Jeimy Tenorio Hemoglobin (Bld) [Mass/Vol] 13.2 g/dL Critically low 14.0-18.0 [facility] Comment on above: Performed By: #### C BC #### [facility] [address] [place] [address] Dr. Jiemy Tenorio IG # 0.03 10e3/ul Normal 0.00-0.03 [facility] Comment on above: Performed By: #### C BC #### [facility] [address] [place] [address] Dr. Jeimy Tenorio IG % 0.5 % Normal 0.0-0.5 [facility] Comment on above: Performed By: #### C BC #### [facility] [address] [place] [address] Dr. Jeimy Tenorio LYMPH # 1.7 103/ul Normal 1.2-3.8 [facility] Comment on above: Performed By: #### C BC #### [facility] [address] [place] [address] Dr. Jeimy Tenorio Lymphocytes/100 WBC (Bld) 26.0 % Normal 20.5-60.0 [facility] Comment on above: Performed By: #### C BC #### [facility] [address] [place] [address] Dr. Jeimy Tenorio MANUAL DIFF REQ NO Normal [facility] Comment on above: Performed By: #### C BC #### [facility] [address] [place] [address] Dr. Jeimy Tenorio MCH (RBC) [Entitic mass] 33.2 pg Normal 25.9-34.0 [facility] Comment on above: Performed By: #### C BC #### [facility] [address] [place] [address] Dr. Jeimy Tenorio MCHC (RBC) [Mass/Vol] 33.8 g/dL Normal 29.9-35.2 [facility] Comment on above: Performed By: #### C BC #### [facility] [address] [place] [address] Dr. Jeimy Tenorio MCV (RBC) [Entitic vol] 98.5 fL Critically high 80.0-94.0 [facility] Comment on above: Performed By: #### C BC #### [facility] [address] [place] [address] Dr. Jeimy Tenorio MONO # 0.8 103/ul Normal 0.3-0.8 [facility] Comment on above: Performed By: #### C BC #### [facility] [address] [place] [address] Dr. Jeimy Tenorio Monocytes/100 WBC (Bld) 12.2 % Critically high 1.7-12.0 [facility] Comment on above: Performed By: #### C BC #### [facility] [address] [place] [address] Dr. Jeimy Tenorio NEUT # 3.6 103/ul Normal 1.4-6.5 [facility] Comment on above: Performed By: #### C BC #### [facility] [address] [place] [address] Dr. Jeimy Tenorio Neutrophils/100 WBC (Bld) 55.2 % Normal 43.0-75.0 [facility] Comment on above: Performed By: #### C BC #### [facility] [address] [place], [place] [address] Dr. Jeimy Tenorio Platelet mean volume (Bld) [Entitic vol] 9.9 fL Normal 9.5-13.5 [facility] Comment on above: Performed By: #### C BC #### [facility] [address] [place], [place] [address] Dr. Jeimy Tenorio PLT 174 103/ul Normal 150-450 [facility] Comment on above: Performed By: #### C BC #### [facility] [id number] Jeimy Tenorio RBC 3.97 106/ul Critically low 4.70-6.10 [facility] Comment on above: Performed By: #### C BC #### [facility] [id number] Jeimy Tenorio WBC 6.5 103/ul Normal 4.0-11.0 [facility] Comment on above: Performed By: #### C BC #### [facility] [id number] Jeimy Tenorio CTA CHEST WO W CONon -23-2 022 CTA CHEST WO W CON EXAM: [...] MAMIE ALFORD Date: 2022-06-12 00:21 Normal [facility] Covid-19 PCR (CVDTB)on 05-22 SARS-CoV-2 (COVID-19) RNA ALEX+probe Ql (Unsp spec) Not detected Normal NOT DETECTED [facility] Comment on above: Result [...] for this test is supported by the [employer] and Human Service's declaration that [...] By: #### B MP, CMREP, LIPID #### [facility] [address] [place] [address] [address] Jeimy Tenorio ER URINE PROFILEon 2 Bilirubin Ql (U) Negative Normal NEGATIVE [facility] Comment on above: Performed By: #### E RUR #### [facility] [address] [place] [address] [address] Jeimy Tenorio Clarity (U) CLEAR Normal CLEAR [facility] Comment on above: Performed By: #### E RUR #### [facility] [address] [place] [address] Dr. Jeimy Tenorio Color (U) LT. YELLOW Normal YELLOW [facility] Comment on above: Performed By: #### E RUR #### [facility] [address] [place] [address] Dr. Jeimy BALES A micrscopic examination will be performed if indicated. Normal [facility] Comment on above: Performed By: #### E RUR #### [facility] [address] [place] [address] Dr. Jeimy Tenorio Glucose Ql (U) Negative Normal NEGATIVE [facility] Comment on above: Performed By: #### E RUR #### [facility] [address] [place] [address] Dr. Jeimy Tenorio Hemoglobin Ql (U) Negative Normal NEGATIVE [facility] Comment on above: Performed By: #### E RUR #### [facility] [address] [place] [address] Dr. Jeimy Tenorio Ketones Ql (U) TRACE Abnormal NEGATIVE [facility] Comment on above: Performed By: #### E RUR #### [facility] [address] [place] [address] Dr. Jeimy Tenorio LEUKOCYTES Negative Normal NEGATIVE [facility] Comment on above: Performed By: #### E RUR #### [facility] [address] [place] [address] Dr. Jeimy Tenorio Nitrite Ql (U) Negative Normal NEGATIVE [facility] Comment on above: Performed By: #### E RUR #### [facility] [address] [place] [address] Dr. Jeimy Tenorio pH (U) 5.5 [pH] Normal 5-9 [facility] Comment on above: Performed By: #### E RUR #### [facility] [address] [place] [address] Dr. Jeimy Tenorio SPEC GRAVITY 1.010 Normal 1.005-<=1.02 5 [facility] Comment on above: Performed By: #### E RUR #### [facility] [address] [place] [address] Dr. Jeimy Tenorio UA PROTEIN Negative Normal NEGATIVE/ TRACE [facility] Comment on above: Performed By: #### E RUR #### [facility] [address] [address] [address] Jeimy Tenorio UR MICRO IND NOT INDICATED Normal [facility] Comment on above: Performed By: #### E RUR #### [facility] [address] [address] [address] Jeimy Tenorio Urobilinogen Qn (U) 0.2 {Raphael'U}/dL Normal 0.2 - 1. 0 [facility] Comment on above: Performed By: #### E RUR #### [facility] [address] [place] [address] Dr. Jeimy Tenorio GLYCOHEMOGLOBIN A1Con 2021 ADA RECOMMENDATION SEE BELOW Normal [facility] Comment on above: Result Comment: ADA RECOMMENDED LIMIT 4.0 - 6.0 ADA THERAPEUTIC TARGET < 7.0 ACTION SUGGESTED > 7.0 Performed By: #### C BC #### [facility] [address] [place] [address] Dr. Jeimy Tenorio Glucose [Mass/Vol] 103 mg/dL Normal [facility] Comment on above: Performed By: #### C BC #### [facility] [address] [place] [address] Dr. Jeimy Tenorio HbA1c (Bld) [Mass fraction] 5.2 % Normal 4.5-6.2 [facility] Comment on above: Performed By: #### C BC #### [facility] [address] [place] [address] Dr. Jeimy Tenorio LIPID PROFILEon 06-12-2022 CHOL-HDL RATIO NORM SEE BELOW Normal [facility] Comment on above: Result Comment: 3.3 - 4.4 LOW RISK 4.4 - 7.1 AVERAGE RISK 7.1 - 11.0 MODERATE RISK >11.0 HIGH RISK Performed By: #### B MP, CMREP, LIPID #### [facility] [address] [place] [address] Dr. Jeimy Tenorio Cholesterol [Mass/Vol] 142 mg/dL Normal <=200 [facility] Comment on above: Performed By: #### B MP, CMREP, LIPID #### [facility] [address] [address] [address] Jeimy Tenorio Cholesterol in HDL [Mass/Vol] 49 mg/dL Normal 40-60 [facility] Comment on above: Performed By: #### B MP, CMREP, LIPID #### [facility] [address] [address] [address] Jeimy Tenorio Cholesterol in LDL [Mass/Vol] 64.6 mg/dL Normal [facility] Comment on above: Performed By: #### B MP, CMREP, LIPID #### [facility] [address] [place] [address] Dr. Jeimy Tenorio Cholesterol.total/Cho lesterol in HDL [Mass ratio] 2.9 {ratio} Normal [facility] Comment on above: Performed By: #### B MP, CMREP, LIPID #### [facility] [address] [address] [address] Jeimy Tenorio HDL NORMAL > or = 60 mg/dl - LO W CARDIOVASCULAR RISK <40 mg/dl - HIGH CARDIOVASCULAR RISK Normal [facility] Comment on above: Performed By: #### B MP, CMREP, LIPID #### [facility] [address] [place] [address] Dr. Jeimy Tenorio LDL CALC NORMAL SEE BELOW Normal [facility] Comment on above: Result Comment: <100 mg/dl OPTIMAL 100 - 129 mg/dl NEAR OR ABOVE OPTIMAL 130 - 159 mg/dl BORDERLINE HIGH 160 - 189 mg/dl HIGH >190 mg/dl VERY HIGH Performed By: #### B MP, CMREP, LIPID #### [facility] [address] [address] [address] Jeimy Tenorio Triglyceride [Mass/Vol] 142 mg/dL Normal <=150 [facility] Comment on above: Performed By: #### B MP, CMREP, LIPID #### [facility] [address] [place] [address] Dr. Jeimy Tenorio VLDL CALC 28.4 mg/dL Normal [facility] Comment on above: Performed By: #### B MP, CMREP, LIPID #### [facility] [address] [place] [address] Dr. Jeimy Tenorio PROF CHEM 8 (BAS METB)on Anion gap [Moles/Vol] 10.1 mmol/L Normal [facility] Comment on above: Performed By: #### B MP, CMREP, LIPID #### [facility] [address] [place] [address] Dr. Jeimy Tenorio Calcium [Mass/Vol] 8.0 mg/dL Critically low 8.5-10.1 [facility] Comment on above: Performed By: #### B MP, CMREP, LIPID #### [facility] [address] [place] [address] Dr. Jeimy Tenorio Chloride [Moles/Vol] 104 mmol/L Normal 98-107 [facility] Comment on above: Performed By: #### B MP, CMREP, LIPID #### [facility] [address] [place] [address] Dr. Jeimy Tenorio CO2 [Moles/Vol] 27.0 mmol/L Normal 21.0-32.0 [facility] Comment on above: Performed By: #### B MP, CMREP, LIPID #### [facility] [address] [place] [address] Dr. Jeimy Tenorio Creatinine [Mass/Vol] 0.79 mg/dL Normal 0.70-1.30 [facility] Comment on above: Performed By: #### B MP, CMREP, LIPID #### [facility] [address] [place] [address] Dr. Jeimy Tenorio EGFR-AF KENYAN >60 Normal >=60 [facility] Comment on above: Performed By: #### B MP, CMREP, LIPID #### [facility] [address] [place] [address] Dr. Jeimy Tenorio EGFR-NON AF KENYAN >60 Normal >=60 [facility] Comment on above: Performed By: #### B MP, CMREP, LIPID #### [facility] [address] [place] [address] Dr. Jeimy Tenorio Glucose [Mass/Vol] 101 mg/dL Normal 74-106 [facility] Comment on above: Performed By: #### B MP, CMREP, LIPID #### [facility] [address] [address] [address] Jeimy Tenorio Potassium [Moles/Vol] 4.1 mmol/L Normal 3.5-5.1 [facility] Comment on above: Performed By: #### B MP, CMREP, LIPID #### [facility] [address] [address] [address] Jeimy Tenorio Sodium [Moles/Vol] 137 mmol/L Normal 136-145 [facility] Comment on above: Performed By: #### B MP, CMREP, LIPID #### [facility] [address] [place] [address] Dr. Jeimy Tenorio Urea nitrogen [Mass/Vol] 15.0 mg/dL Normal 7.0-18.0 [facility] Comment on above: Performed By: #### B MP, CMREP, LIPID #### [facility] [address] [place] [address] Dr. Jeimy Tenorio Urea nitrogen/Creatinine [Mass ratio] 19.0 mg/mg Normal [facility] Comment on above: Performed By: #### B MP, CMREP, LIPID #### [facility] [address] [address] [address] Jeimy Tenorio CARDIAC SAWYER ADMITon 022 CK [Catalytic activity/Vol] 50 U/L Normal 39-308 [facility] Comment on above: Performed By: #### C BC #### [facility] [address] [place] [address] Dr. Jeimy Tenorio CK.MB [Mass/Vol] 0.80 ng/mL Normal <=3.60 [facility] Comment on above: Performed By: #### C BC #### [facility] [address] [place] [address] Dr. Jeimy Tenorio HSTROP 5.2 pg/mL Normal 4.0-76.1 [facility] Comment on above: Result Comment: CUT- OFF POINTS HAVE BEEN ESTABLISHED BASED ON THE FOURTH UNIVERSAL DEFINITIONS OF MYOCARDIAL INFARCTION. THE UPPER REFERENCE LIMIT (URL) OF TROPONIN, DEFINED THE 99TH PERCENTILE OF cTnI DISTRIBUTION IN A REFERENCE POPULATION, HAS BEEN CONFIRMED THE DECISION THRESHOLD FOR [place] DIAGNOSIS. Performed By: #### C BC #### [facility] [address] [place] [address] Dr. Jeimy Tenorio MAGALIE 41 ng/mL Normal 16-96 [facility] Comment on above: Performed By: #### C BC #### [facility] [address] [place] [address] Dr. Jeimy Tenorio CBC AUTO DIFFon 06-11-2022 BASO # 0.0 103/ul Normal 0.0-0.1 [facility] Comment on above: Performed By: #### C BC #### [facility] [address] [place] [address] Dr. Jeimy Tenorio Basophils/100 WBC (Bld) 0.6 % Normal 0.2-2.0 [facility] Comment on above: Performed By: #### C BC #### [facility] [address] [place] [address] Dr. Jeimy Tenorio EO # 0.4 103/ul Normal 0.0-0.7 [facility] Comment on above: Performed By: #### C BC #### [facility] [address] [place] [address] Dr. Jeimy Tenorio Eosinophils/100 WBC (Bld) 4.9 % Normal 0.9-7.0 [facility] Comment on above: Performed By: #### C BC #### [facility] [address] [place] [address] Dr. Jeimy Tenorio Erythrocyte distribution width (RBC) [Ratio] 13.1 % Normal 11.0-15.0 [facility] Comment on above: Performed By: #### C BC #### [facility] [address] [place] [address] Dr. Jeimy Tenorio Hematocrit (Bld) [Volume fraction] 38.1 % Critically low 42.0-54.0 [facility] Comment on above: Performed By: #### C BC #### [facility] [address] [place] [address] Dr. eJimy Tenorio Hemoglobin (Bld) [Mass/Vol] 13.0 g/dL Critically low 14.0-18.0 [facility] Comment on above: Performed By: #### C BC #### [facility] [address] [place] [address] Dr. Jeimy Tenorio IG # 0.02 10e3/ul Normal 0.00-0.03 [facility] Comment on above: Performed By: #### C BC #### [facility] [address] [place] [address] Dr. Jeimy Tenorio IG % 0.3 % Normal 0.0-0.5 [facility] Comment on above: Performed By: #### C BC #### [facility] [address] [place] [address] Dr. Jeimy Tenorio LYMPH # 1.7 103/ul Normal 1.2-3.8 [facility] Comment on above: Performed By: #### C BC #### [facility] [address] [place] [address] Dr. Jeimy Tenorio Lymphocytes/100 WBC (Bld) 22.9 % Normal 20.5-60.0 [facility] Comment on above: Performed By: #### C BC #### [facility] [address] [place] [address] Dr. Jeimy Tenorio MANUAL DIFF REQ NO Normal [facility] Comment on above: Performed By: #### C BC #### [facility] [address] [place] [address] Dr. Jeimy Tenorio MCH (RBC) [Entitic mass] 33.5 pg Normal 25.9-34.0 [facility] Comment on above: Performed By: #### C BC #### [facility] [address] [place] [address] Dr. Jeimy Tenorio MCHC (RBC) [Mass/Vol] 34.1 g/dL Normal 29.9-35.2 [facility] Comment on above: Performed By: #### C BC #### [facility] [address] [place] [address] Dr. Jeimy Tenorio MCV (RBC) [Entitic vol] 98.2 fL Critically high 80.0-94.0 [facility] Comment on above: Performed By: #### C BC #### [facility] [address] [address] [address] Jeimy Tenorio MONO # 0.8 103/ul Normal 0.3-0.8 [facility] Comment on above: Performed By: #### C BC #### [facility] [address] [address] [address] Jeimy Tenorio Monocytes/100 WBC (Bld) 11.5 % Normal 1.7-12.0 [facility] Comment on above: Performed By: #### C BC #### [facility] [address] [place] [address] Dr. Jeimy Tenorio NEUT # 4.3 103/ul Normal 1.4-6.5 [facility] Comment on above: Performed By: #### C BC #### [facility] [address] [place] [address] Dr. Jeimy Tenorio Neutrophils/100 WBC (Bld) 59.8 % Normal 43.0-75.0 [facility] Comment on above: Performed By: #### C BC #### [facility] [address] [place] [address] Dr. Jeimy Tenorio Platelet mean volume (Bld) [Entitic vol] 9.8 fL Normal 9.5-13.5 [facility] Comment on above: Performed By: #### C BC #### [facility] [address] [place] [address] Dr. Jeimy Tenorio PLT 181 103/ul Normal 150-450 [facility] Comment on above: Performed By: #### C BC #### [facility] [id number] Jeimy Tenorio RBC 3.88 106/ul Critically low 4.70-6.10 [facility] Comment on above: Performed By: #### C BC #### [facility] [address] [address] [address] Jeimy Tenorio WBC 7.2 103/ul Normal 4.0-11.0 [facility] Comment on above: Performed By: #### C BC #### [facility] [address] [place] [address] Dr. Jeimy Tenorio D-DIMERon 06-11-2022 D-DIMER 0.63 mg/L FEU Critically high <=0.59 [facility] Comment on above: Performed By: #### D DIM #### [facility] [address] [place] [address] Dr. Jeimy Tenorio D-DIMER COMMENTS SEE BELOW Normal [facility] Comment on above: Result Comment: Incr [...] hospitalization. Performed By: #### D DIM #### [facility] [address] [place] [address] Dr. Jeimy Tenorio PROF 14(COMP METB)on 022 Albumin [Mass/Vol] 3.3 g/dL Critically low 3.4-5.0 [facility] Comment on above: Performed By: #### C BC #### [facility] [address] [place] [address] Dr. Jeimy Tenorio Albumin/Globulin [Mass ratio] 0.8 {ratio} Normal [facility] Comment on above: Performed By: #### C BC #### [facility] [address] [place] [address] Dr. Jeimy Tenorio ALP [Catalytic activity/Vol] 160 U/L Critically high 46-116 [facility] Comment on above: Performed By: #### C BC #### [facility] [address] [place] [address] Dr. Jeimy Tenorio ALT [Catalytic activity/Vol] 26 U/L Normal 16-63 [facility] Comment on above: Performed By: #### C BC #### [facility] [address] [address] [address] Jeimy Tenorio Anion gap [Moles/Vol] 10.4 mmol/L Normal [facility] Comment on above: Performed By: #### C BC #### [facility] [address] [address] [address] Jeimy Tenorio AST [Catalytic activity/Vol] 16 U/L Normal 15-37 [facility] Comment on above: Performed By: #### C BC #### [facility] [address] [address] [address] Jeimy Tenorio Bilirubin [Mass/Vol] 0.2 mg/dL Normal 0.2-1.0 [facility] Comment on above: Performed By: #### C BC #### [facility] [address] [place] [address] Dr. Jeimy Tenorio Calcium [Mass/Vol] 8.2 mg/dL Critically low 8.5-10.1 [facility] Comment on above: Performed By: #### C BC #### [facility] [address] [place] [address] Dr. Jeimy Tenorio Chloride [Moles/Vol] 105 mmol/L Normal 98-107 [facility] Comment on above: Performed By: #### C BC #### [facility] [address] [place] [address] Dr. Jeimy Tenorio CO2 [Moles/Vol] 26.5 mmol/L Normal 21.0-32.0 [facility] Comment on above: Performed By: #### C BC #### [facility] [address] [place] [address] Dr. Jeimy Tenorio Creatinine [Mass/Vol] 0.96 mg/dL Normal 0.70-1.30 [facility] Comment on above: Performed By: #### C BC #### [facility] [address] [place] [address] Dr. Jeimy Tenorio EGFR-AF KENYAN >60 Normal >=60 [facility] Comment on above: Performed By: #### C BC #### [facility] [address] [place] [address] Dr. Jeimy Tenorio EGFR-NON AF KENYAN >60 Normal >=60 [facility] Comment on above: Performed By: #### C BC #### [facility] [address] [address] [address] Jeimy Tenorio Globulin (S) [Mass/Vol] 4.0 g/dL Normal [facility] Comment on above: Performed By: #### C BC #### [facility] [address] [address] [address] Jeimy Tenorio Glucose [Mass/Vol] 140 mg/dL Critically high 74-106 T [facility] Comment on above: Performed By: #### C BC #### [facility] [address] [place] [address] Dr. Jeimy Tenorio Potassium [Moles/Vol] 3.9 mmol/L Normal 3.5-5.1 [facility] Comment on above: Performed By: #### C BC #### [facility] [address] [place] [address] Dr. Jeimy Tenorio Protein [Mass/Vol] 7.3 g/dL Normal 6.4-8.2 [facility] Comment on above: Performed By: #### C BC #### [facility] [address] [place] [address] Dr. Jeimy Tenorio Sodium [Moles/Vol] 138 mmol/L Normal 136-145 [facility] Comment on above: Performed By: #### C BC #### [facility] [address] [place] [address] Dr. Jeimy Tenorio Urea nitrogen [Mass/Vol] 15.0 mg/dL Normal 7.0-18.0 [facility] Comment on above: Performed By: #### C BC #### [facility] [address] [place] [address] Dr. Jeimy Tenorio Urea nitrogen/Creatinine [Mass ratio] 15.6 mg/mg Normal [facility] Comment on above: Performed By: #### C BC #### [facility] [address] [place] [address] Dr. Jeimy Tenorio [facility] METABOLIC [facility] 10-30-2021 Albumin [Mass/Vol] 4.3 g/dL Normal 3.6-5.1 [facility] Comment on above: Performed By: #### 7 13, 0, 52914 #### [facility] [place] [address] [address] [address] [place]: Yash Campuzano MD Albumin/Globulin [Mass ratio] 1.3 {ratio} Normal 1.0-2.5 [facility] Comment on above: Performed By: #### 7 13, 7599, 13770 #### [facility] of [address] [address] [address] [place]: Yash Campuzano MD ALP [Catalytic activity/Vol] 152 U/L High 35-144 [facility] Comment on above: Performed By: #### 7 13, 7599, 10553 #### [facility] of [address] [address] [address] [place]: Yash Campuzano MD ALT [Catalytic activity/Vol] 30 U/L Normal 9-46 [facility] Comment on above: Performed By: #### 7 13, 7599, 98134 #### [facility] [address] [address] [address] [place]: Yash Campuzano MD AST [Catalytic activity/Vol] 26 U/L Normal 10-35 [facility] Comment on above: Performed By: #### 7 13, 7599, 69000 #### [facility] of [address] [address] [address]: Yash Campuzano MD Bilirubin [Mass/Vol] 0.4 mg/dL Normal 0.2-1.2 [facility] Comment on above: Performed By: #### 7 13, 7599, 29659 #### [facility] of [address] [address] [address] [place]: Yash Campuzano MD BUN/CREATININE RATIO NOT APPLICABLE Normal 6-22 [facility] Comment on above: Performed By: #### 7 13, 7599, 76139 #### [facility] of [address], [address] [place] [address] [place]: Yash Campuzano MD Calcium [Mass/Vol] 8.8 mg/dL Normal 8.6-10.3 [facility] Comment on above: Performed By: #### 7 13, 7600, 69535 #### [facility] [address], [address] [place] [address] [place]: Yash Campuzano MD Chloride [Moles/Vol] 104 mmol/L Normal 98-110 [facility] Comment on above: Performed By: #### 7 13, 7600, 33792 #### [facility] [address] [address] [address] [place]: Yash Campuzano MD CO2 [Moles/Vol] 25 mmol/L Normal 20-32 [facility] Comment on above: Performed By: #### 7 13, 0, 67071 #### [facility] [address] [address] [address] [place]: Yash Campuzano MD Creatinine [Mass/Vol] 0.76 mg/dL Normal 0.70-1.25 [facility] Comment on above: Result Comment: For patients >49 years of age, the reference limit for Creatinine is approximately 13% higher for people identified as -[place] African. Performed By: #### 7 13, 7600, 46918 #### [facility] [address] [address] [address] [place]: Yash Campuzano MD eGFR NON-AFR. KENYAN 95 mL/min/1.73m2 Normal > OR = 60 [facility] Comment on above: Performed By: #### 7 13, 7600, 38373 #### [facility] [address] [address] [address] [place]: Yash Campuzano MD GFR/1.73 sq M.predicted among blacks MDRD (S/P/Bld) [Vol rate/Area] 110 mL/min/{1.73_m2} Normal > OR = 60 [facility] Comment on above: Performed By: #### 7 , 7599, 61669 #### [facility] [address] [address] [address] [place]: Yash Campuzano MD Globulin (S) [Mass/Vol] 3.2 g/dL Normal 1.9-3.7 [facility] Comment on above: Performed By: #### 7 13, 7599, 14863 #### [facility] [address] [address] [address] [place]: Yash Campuzano MD Glucose [Mass/Vol] 103 mg/dL High 65-99 [facility] Comment on above: Result Comment: Fasting reference interval For someone without known diabetes, a glucose value between 100 and 125 mg/dL is consistent with prediabetes and should be confirmed with a follow-up test. Performed By: #### 7 , 7599, 99508 #### [facility] [address] [address] [address] [place]: Yash Campuzano MD Potassium [Moles/Vol] 4.7 mmol/L Normal 3.5-5.3 [facility] Comment on above: Performed By: #### 7 , 7599, 40186 #### [facility] [address] [address] [address] [place]: Yash Campuzano MD Protein [Mass/Vol] 7.5 g/dL Normal 6.1-8.1 [facility] Comment on above: Performed By: #### 7 , 7599, 95261 #### [facility] [address] [address] [address] [place]: Yash Campuzano MD Sodium [Moles/Vol] 137 mmol/L Normal 135-146 [facility] Comment on above: Performed By: #### 7 , 7599, 10654 #### [facility] [address] [address] [address] [place]: Yash Campuzano MD Urea nitrogen [Mass/Vol] 15 mg/dL Normal 7-25 [facility] Comment on above: Performed By: #### 7 13, 7600, 44980 #### [facility] [address], [address] [place] [address] [place]: Yash Campuzano MD LIPID PANEL, [address] [address] Cholesterol [Mass/Vol] 180 mg/dL Normal <200 [facility] Comment on above: Order Comment: FASTI NG:YES FASTING: YES Performed By: #### 7 13, 7600, 16934 #### [facility] [address], [address] [place] [address] [place]: Yash Campuzano MD Cholesterol in HDL [Mass/Vol] 50 mg/dL Normal > OR = 40 [facility] Comment on above: Order Comment: FASTI NG:YES FASTING: YES Performed By: #### 7 13, 7600, 81568 #### [facility] [address], [address] [place] [address] [place]: Yash Campuzano MD Cholesterol in LDL [Mass/Vol] [...] LDL-C. Gennaro ALMANZAR et al. KO. 2013;310(19): 7378-4698 (http://education.[employer]/faq/AJP755) Performed By: #### 7 13, 7600, 36317 #### [facility] [address], [address] [place] [address] [place]: Yash Campuzano MD Cholesterol.total/Cho lesterol in HDL [Mass ratio] 3.6 {ratio} Normal <5.0 [facility] Comment on above: Order Comment: FASTI NG:YES FASTING: YES Performed By: #### 7 13, 7600, 49891 #### [facility] [address] [address] [address]: Yash Campuzano MD NON HDL CHOLESTEROL 130 mg/dL (calc) High <130 [facility] Comment on above: Order Comment: FASTI NG:YES FASTING: YES Result Comment: For patients with diabetes plus 1 major ASCVD risk factor, treating to a non-HDL-C goal of <100 mg/dL (LDL-C of <70 mg/dL) is considered a therapeutic option. Performed By: #### 7 13, 7599, 21089 #### [facility] [address] [address] [address]: Yash Campuzano MD Triglyceride [Mass/Vol] 280 mg/dL High <150 [facility] Comment on above: Order Comment: FASTI NG:YES FASTING: YES Result Comment: If a non-fasting specimen was collected, consider repeat triglyceride testing on a fasting specimen if clinically indicated. Marquise et al. J. of Clin. Lipidol. 2015;9:129-169. Performed By: #### 7 , 7599, 94941 #### [facility] [address] [address] [address]: Yash Campuzano MD PHENYTOINon 10-30-2021 Phenytoin [Mass/Vol] 18.9 ug/mL Normal 10.0-20.0 [facility] Comment on above: Performed By: #### 7 , 7599, 73837 #### [facility] [address] [address] [address]: Yash Campuzano MD CBC (INCLUDES DIFF/PLT)on Basophils (Bld) [#/Vol] 0.071 10*3/uL Normal 0-200 [facility] Comment on above: Performed By: #### 7 , 5940, 1519 #### [facility] [address] [address] [address]: Yash Campuzano MD Basophils/100 WBC (Bld) 1.2 % Normal [facility] Comment on above: Performed By: #### 7 , 7599, 6399 #### [facility] of [address], [address] [place] [address] [place]: Yash Campuzano MD Eosinophils (Bld) [#/Vol] 0.277 10*3/uL Normal 15-500 [facility] Comment on above: Performed By: #### 7 13, 7599, 6399 #### [facility] of [address], [address] [place] [address] [place]: Yash Campuzano MD Eosinophils/100 WBC (Bld) 4.7 % Normal [facility] Comment on above: Performed By: #### 7 , 7599, 6399 #### [facility] of [address] [address] [address]: Yash Campuzano MD Erythrocyte distribution width (RBC) [Ratio] 12.8 % Normal 11.0-15.0 [facility] Comment on above: Performed By: #### 7 , 7599, 6399 #### [facility] of [address] [address] [address]: Yash Campuzano MD Hematocrit (Bld) [Volume fraction] 42.1 % Normal 38.5-50.0 [facility] Comment on above: Performed By: #### 7 , 7599, 6399 #### [facility] of [address] [address] [address]: Yash Campuzano MD Hemoglobin (Bld) [Mass/Vol] 14.9 g/dL Normal 13.2-17.1 [facility] Comment on above: Performed By: #### 7 , 7599, 6399 #### [facility] of [address] [address] [address]: Yash Campuzano MD Lymphocytes (Bld) [#/Vol] 1.068 10*3/uL Normal 850-3900 [facility] Comment on above: Performed By: #### 7 , 7599, 6399 #### [facility] of [address], [address] [place] [address] [place]: Yash Campuzano MD Lymphocytes/100 WBC (Bld) 18.1 % Normal [facility] Comment on above: Performed By: #### 7 , 7599, 6399 #### [facility] [address] [address] [address]: Yash Campuzano MD MCH (RBC) [Entitic mass] 32.9 pg Normal 27.0-33.0 [facility] Comment on above: Performed By: #### 7 , 7599, 6399 #### [facility] of [address] [address] [address]: Yash Campuzano MD MCHC (RBC) [Mass/Vol] 35.4 g/dL Normal 32.0-36.[address] [facility] Comment on above: Performed By: #### 7 , 7599, 6399 #### [facility] [address] [address] [address]: Yash Campuzano MD MCV (RBC) [Entitic vol] 92.9 fL Normal 80.0-100.0 [facility] Comment on above: Performed By: #### 7 , 7599, 6399 #### [facility] [address] [address] [address]: Yash Campuzano MD Monocytes (Bld) [#/Vol] 0.531 10*3/uL Normal 200-950 [facility] Comment on above: Performed By: #### 7 , 7599, 6399 #### [facility] [address] [address] [address]: Yash Campuzano MD Monocytes/100 WBC (Bld) 9.0 % Normal [facility] Comment on above: Performed By: #### 7 , 7599, 6399 #### [facility] [address] [address] [address]: Yash Campuzano MD Neutrophils (Bld) [#/Vol] 3.953 10*3/uL Normal 8671-3195 [facility] Comment on above: Performed By: #### 7 13, 7599, 6399 #### [facility] [address] [address] [address]: Yash Campuzano MD Neutrophils/100 WBC (Bld) 67 % Normal [facility] Comment on above: Performed By: #### 7 13, 7599, 6399 #### [facility] [address], [address] [place] [address] [place]: Yash Campuzano MD Platelet mean volume (Bld) [Entitic vol] 11.0 fL Normal 7.5-12.5 [facility] Comment on above: Performed By: #### 7 13, 7599, 6399 #### [facility] [address], [address] [place] [address] [place]: Yash Campuzano MD Platelets (Bld) [#/Vol] 200 10*3/uL Normal 140-400 [facility] Comment on above: Performed By: #### 7 , 7599, 6399 #### [facility] of [address] [address] [address]: Yash Campuzano MD RBC (Bld) [#/Vol] 4.53 10*6/uL Normal 4.20-5.80 [facility] Comment on above: Performed By: #### 7 13, 7599, 6399 #### [facility] [address], [address] [place] [address] [place]: Yash Campuzano MD WBC (Bld) [#/Vol] 5.9 10*3/uL Normal 3.8-10.8 [facility] Comment on above: Performed By: #### 7 , 7599, 6399 #### [facility] [address] [address] [address]: Yash Campuzano MD LIPID PANEL, [facility] [place] 05- Cholesterol [Mass/Vol] 218 mg/dL High <200 [facility] Comment on above: Order Comment: FASTI NG:YES FASTING: YES Performed By: #### 7 , 1290, 7899 #### [facility] [address], [address] [place] [address] [place]: Yash Campuzano MD Cholesterol in HDL [Mass/Vol] 55 mg/dL Normal > OR = 40 [facility] Comment on above: Order Comment: FASTI NG:YES FASTING: YES Performed By: #### 7 , 281, 6399 #### [facility] [address], [address] [place] [address] [place]: Yash Campuzano MD Cholesterol in LDL [Mass/Vol] [...] LDL-C. Gennaro SS et al. KO. 2013;310(19): 7271-3235 (http://education.The [employer]/faq/GFQ334) Performed By: #### 7 , 637, 1099 #### [facility] [address], [address] [place] [address] [place]: Yash Campuzano MD Cholesterol.total/Cho lesterol in HDL [Mass ratio] 4.0 {ratio} Normal <5.0 [facility] Comment on above: Order Comment: FASTI NG:YES FASTING: YES Performed By: #### 7 , 8650, 6399 #### [facility] [address] [address] [address] [place]: Yash Campuzano MD NON HDL CHOLESTEROL 163 mg/dL (calc) High <130 [facility] Comment on above: Order Comment: FASTI NG:YES FASTING: YES Result Comment: For patients with diabetes plus 1 major ASCVD risk factor, treating to a non-HDL-C goal of <100 mg/dL (LDL-C of <70 mg/dL) is considered a therapeutic option. Performed By: #### 7 , 588, 2393 #### [facility] [address] [address] [address] [place]: Yash Campuzano MD Triglyceride [Mass/Vol] 200 mg/dL High <150 [facility] Comment on above: Order Comment: FASTI NG:YES FASTING: YES Result Comment: If a non-fasting specimen was collected, consider repeat triglyceride testing on a fasting specimen if clinically indicated. Camarillo et al. J. of Clin. Lipidol. 2015;9:129-169. Performed By: #### 7 , 665, 0968 #### [facility] [address] [address] [address]: Yash Campuzano MD PHENYTOINon 04-18-2021 Phenytoin [Mass/Vol] 25.0 ug/mL High 10.0-20.0 [facility] Comment on above: Performed By: #### 7 , 055, 6326 #### [facility] [address] [place] [address] [address] [place]: Yash Campuzano MD APTTon 11-20-2020 aPTT Coag (Bld) [Time] 33.4 s Normal 25.0-35.0 [facility] Comment on above: Result Comment: ALL RESULTS [...] THIS PURPOSE. Performed By: #### 5 6101, 79525 ####[facility] [place] [address], [facility] BNP EDon 11-20-2020 Natriuretic peptide B (Bld) [Mass/Vol] 111 pg/mL High 0-100 [facility] Comment on above: Result Comment: Give n the appropriate clinical setting a BNP result of >100 pg/mL indicates congestive heart failure. Performed By: #### 3 0935 #### [facility] [address] CBC W/DIFFon 11-20-2020 ABS IMM GRANS 0.0 10*3/uL Normal 0.0-0.2 [facility] Comment on above: Performed By: #### 5 0103 ####[facility] ABS NEUTROPHILS 3.9 10*3/uL Normal 1.6-7.6 [facility] Comment on above: Performed By: #### 5 0103 ####[facility] Basophils (Bld) [#/Vol] 0.1 10*3/uL Normal 0.0-0.2 [facility] Comment on above: Performed By: #### 5 0103 ####[facility] Basophils/100 WBC (Bld) 1.0 % Normal 0.0-1.0 [facility] Comment on above: Performed By: #### 5 0103 ####[facility] [place] [address], [facility] Eosinophils (Bld) [#/Vol] 0.3 10*3/uL Normal 0.0-0.5 [facility] Comment on above: Performed By: #### 5 0103 ####[facility] [place] [address], [facility] Eosinophils/100 WBC (Bld) 5.1 % Normal 0.0-6.0 [facility] Comment on above: Performed By: #### 5 0103 ####[facility] [place] [id number], [place] Erythrocyte distribution width (RBC) [Ratio] 13.1 % Normal 11.5-15.0 [facility] Comment on above: Performed By: #### 5 0103 ####[facility] Hematocrit (Bld) [Volume fraction] 45.4 % Normal 39.0-50.0 [facility] Comment on above: Performed By: #### 5 0103 ####[facility] Hemoglobin (Bld) [Mass/Vol] 14.8 g/dL Normal 13.0-17.0 [facility] Comment on above: Performed By: #### 3 ####[address] IMMATURE GRANS 0.3 % Normal 0.0-1.0 [facility] Comment on above: Performed By: #### 3 ####[place] [address] Lymphocytes (Bld) [#/Vol] 1.0 10*3/uL Low 1.2-4.0 [facility] Comment on above: Performed By: #### 3 ####[facility] Lymphocytes/100 WBC (Bld) 17.5 % Low 20.0-45.0 [facility] Comment on above: Performed By: #### 3 ####[place] [address] MCH (RBC) [Entitic mass] 32.5 pg Normal 27.0-33.0 [facility] Comment on above: Performed By: #### 5 3 ####[facility] [place] [address], [place] MCHC (RBC) [Mass/Vol] 32.6 g/dL Normal 32.0-35.0 [facility] Comment on above: Performed By: #### 5 0103 ####[facility] MCV (RBC) [Entitic vol] 99.6 fL High 82.0-98.0 [facility] Comment on above: Performed By: #### 5 0103 ####[facility] [facility] [place] [address], [facility] Monocytes (Bld) [#/Vol] 0.6 10*3/uL Normal 0.1-1.0 [facility] Comment on above: Performed By: #### 5 0103 ####[facility] MONOS 9.4 % Normal 5.0-12.0 [facility] Comment on above: Performed By: #### 5 0103 ####[facility] Neutrophils/100 WBC (Bld) 66.7 % Normal 40.0-72.0 [facility] Comment on above: Performed By: #### 5 3 ####[facility] [facility].[address] Nucleated RBC/100 WBC (Bld) [Ratio] 0 % Normal 0-0 [facility] Comment on above: Performed By: #### 5 3 ####[facility] [facility] [place] [address], [facility] PLAT CNT 175 10*3/uL Normal 150-400 [facility] Comment on above: Performed By: #### 5 3 ####[facility] [facility] [place] [address], [facility] RBC (Bld) [#/Vol] 4.56 10*6/uL Normal 4.20-5.70 [facility] Comment on above: Performed By: #### 5 0103 ####[facility] [facility].[address] WBC (Bld) [#/Vol] 5.88 10*3/uL Normal 4.00-10.60 [facility] Comment on above: Performed By: #### 5 0103 ####[facility] COMP METABOLIC PANELon 11-20 Albumin [Mass/Vol] 4.0 g/dL Normal 3.5-5.7 [facility] Comment on above: Performed By: #### 0 0121, 91842, 52566, 78282 #### [facility] [address] [facility] ALKALINE PHOSPH 130 IU/L High 34-104 [facility] Comment on above: Performed By: #### 0 0121, 54441, 89999, 65216 #### [facility] [address] [facility] ALT [Catalytic activity/Vol] 18 U/L Normal 7-52 [facility] Comment on above: Performed By: #### 0 0121, 04151, 15044, 15914 #### [facility] [address] [facility] [place] [address], [facility] AST [Catalytic activity/Vol] 19 U/L Normal 13-39 [facility] Comment on above: Performed By: #### 0 0121, 87383, 14638, 80892 #### [facility] [address] [facility] [place] [address], [facility] Bilirubin [Mass/Vol] 0.4 mg/dL Normal 0.3-1.0 [facility] Comment on above: Performed By: #### 0 0121, 67521, 24575, 23932 #### [facility] [address] [place] [address], [place] Calcium [Mass/Vol] 9.0 mg/dL Normal 8.6-10.3 [facility] Comment on above: Performed By: #### 0 0121, 23415, 16010, 13180 #### [facility] [address] [place] [address], [place] Chloride [Moles/Vol] 103 mmol/L Normal 98-107 [facility] Comment on above: Performed By: #### 0 0121, 76328, 59078, 41404 #### [facility] [address] [place] [address], [place] CO2 [Moles/Vol] 28 mmol/L Normal 21-31 [facility] Comment on above: Performed By: #### 0 0121, 50527, 72715, 08621 #### [facility] [address] [place] [address], [place] Creatinine [Mass/Vol] 0.77 mg/dL Normal 0.70-1.30 [facility] Comment on above: Performed By: #### 0 0121, 10885, 19621, 55958 #### [facility] [address] [place] [address], [place] GFR/1.73 sq M.predicted among blacks MDRD (S/P/Bld) [Vol rate/Area] mL/min/{1.73_m2} Normal >60 [facility] Comment on above: Performed By: #### 0 0121, 08582, 14505, 11294 #### [facility] [address] [place] [address], [place] GFR/1.73 sq M.predicted among non-blacks MDRD (S/P/Bld) [Vol rate/Area] mL/min/{1.73_m2} Normal >60 [facility] [facility] Comment on above: Performed By: #### 0 [id number], [id number], [id number], [id number] #### [facility] [address] [place] [address], [place] Glucose [Mass/Vol] 88 mg/dL Normal 70-100 [facility] Comment on above: Performed By: #### 0 0121, [id number], 39463, 60420 #### [facility] [address] [place] [address], [place] Potassium [Moles/Vol] 4.9 mmol/L Normal 3.5-5.1 [facility] Comment on above: Performed By: #### 0 0121, 07651, 69995, 85534 #### [facility] [address] [place] [address], [place] Protein [Mass/Vol] 7.3 g/dL Normal 6.0-8.3 [facility] Comment on above: Performed By: #### 0 0121, [id number], 31253, 30140 #### [facility] [address] [place] [address], [place] Sodium [Moles/Vol] 138 mmol/L Normal 136-145 [facility] Comment on above: Performed By: #### 0 0121, 22974, 24840, 30134 #### [facility] [address] [place] [address], [place] Urea nitrogen [Mass/Vol] 15 mg/dL Normal 7-25 [facility] Comment on above: Performed By: #### 0 0121, 32551, 35206, 21228 #### [facility] [address] [place] [address], [place] CTA HEADon 11-20-2020 CTA HEAD [facility] Department of Radiology [address] [place] [phone] ======== Patient Name: NAZARIO CORTES : 1955 Sex: M Age: Race: White Pt. Location: [facility] Patient Status: E Ordered Date: 11/20/2020 11:20:00 [...] stenosis of the major vessels of the [place]. origin of bilateral posterior cerebral arteries. IMPRESSION: Normal CTA of the brain. All CT scans at this facility use dose modulation, iterative reconstruction, and/or weight based dosing when appropriate to reduce radiation dose to as low as reasonably achievable. Electronically signed: Dhaval Ghotra. Transcribed by: [email or web address], User Resident: Electronically Signed by: DHAVAL GHOTRA @ 11/20/2020 12:58 PM Normal [facility] Comment on above: Order Comment: Bleed CTA NECKon 11-20-2020 CTA NECK [facility] Department of Radiology [address] [place] [phone] ======== Patient Name: NAZARIO CORTES : 1955 Sex: M Age: Race: White Pt. Location: [facility] Patient Status: E Ordered Date: 11/20/2020 11:20:00 [...] viewed on a separate workstation. The [place] Symptomatic Carotid Endarterectomy Trial (NASCET) method for [...] achievable Electronically signed: Dhaval Ghotra. Transcribed by: [email or web address], User Resident: Electronically Signed by: DHAVAL GHOTRA @ 11/20/2020 12:57 PM Normal [facility] DIRECT BILIon 11-20-2020 Bilirubin.direct [Mass/Vol] 0.1 mg/dL Normal 0.0-0.2 [facility] Comment on above: Order Comment: Liver Battery conflicts with Comprehensive Metabolic Panel. Liver Battery canceled and Direct Bilirubin added. Performed By: #### 0 0121, [id number], 48740, 02120 #### [facility] [address] [facility]. [place], [place] [address] LIPASE BLOODon 11-20-2020 LIPASE 27 Units/L Normal 11-82 [facility] Comment on above: Performed By: #### 0 0121, 95644, 33164, 86173 #### [facility] [address] [facility]. [place], [place] [id number] [place] [address] POC SARS COV2 ANTIGEN NEGATI VEon 11-20-2020 POC SARS COV2 ANTIGEN N Negative Normal NEGATIVE [facility] Comment on above: Result Comment: Test performed [...] 3 1919 #### [facility] [address] [facility] [place] [address], [facility] PORTABLE CHEST 1 VIEWon 10-23 PORTABLE CHEST 1 VIEW [facility] Department of Radiology [address] [place] [address] [phone] ======== Patient Name: NAZARIO CORTES : 1955 Sex: M Age: Race: White Pt. Location: [facility] Patient Status: E Ordered Date: 11/20/2020 11:20:00 [...] reports Electronically signed: Dhaval Ghotra. Transcribed by: [email or web address], User Resident: JESSENIA ALFORD Electronically Signed by: DHAVAL GHOTRA @ 11/20/2020 12:32 PM I personally read this/these film(s) with this resident Normal [facility] Comment on above: Order Comment: evalu ate for Pneumonia PROTHROMBIN TIMEon 0 INR Coag (PPP) [Relative time] 0.95 {INR} Normal 0.91-1.16 [facility] Comment on above: Result Comment: ACCC [...] CHEST 1995;[id number]. Performed By: #### 5 6101, [id number] ####[facility] [facility].[address] PT Coag (PPP) [Time] 12.7 s Normal 12.3-14.8 [facility] Comment on above: Result Comment: ALL RESULTS MUST BE INTERPRETED WITH RESPECT TO BLOOD DRAWING ARTIFACT OR DILUTION ERROR OF ANTICOAGULANT AT THE TIME OF SAMPLING. Performed By: #### 5 6101, [id number] ####[facility] [place] [address], [facility] TROPONIN-Ion 11-20-2020 Troponin I.cardiac [Mass/Vol] 0.00 ng/mL Normal 0.00-0.04 [facility] Comment on above: Order Comment: No: D o not add to previous draw Result Comment: REFE RENCE RANGES: 0.00 - 0.14 ng/ml NEGATIVE 0.15 - 0.25 ng/ml INDETERMINATE > 0.25 ng/ml INDICATIVE OF AN M.I. Performed By: #### 3 5200 #### [facility] [address] [place] [address], [facility] Troponin I.cardiac [Mass/Vol] 0.00 ng/mL Normal 0.00-0.04 [facility] Comment on above: Result Comment: REFE RENCE RANGES: 0.00 - 0.14 ng/ml NEGATIVE 0.15 - 0.25 ng/ml INDETERMINATE > 0.25 ng/ml INDICATIVE OF AN M.I. Performed By: #### 0 0121, 52559, 53807, 60066 #### [facility] [address] [place], [place] [id number] [place] [address] Vital Signs Date Time Vital Sign Value Performing Clinician Facility 04-02-2025 12:08-0400 Body height 185.4 cm Jignesh Gonsalez MD Work Phone: [facility] 04-02-2025 12:08-0400 Body mass index (BMI) [Ratio] 40.64 kg/m2 Jignesh Gonsalez MD Work Phone: [facility] 04-02-2025 12:08-0400 Body temperature 97.5 [degF] Jignesh Gonsalez MD Work Phone: [facility] 04-02-2025 12:08-0400 Body weight 139.71 kg Jignesh Gonsalez MD Work Phone: [facility] 04-02-2025 12:08-0400 Diastolic blood pressure 64 mm[Hg] Jignesh Gonsalez MD Work Phone: [facility] 04-02-2025 12:08-0400 Heart rate 66 /min Jignesh Gonsalez MD Work Phone: [facility] 04-02-2025 12:08-0400 Respiratory rate 22 /min Jignesh Gonsalez MD Work Phone: [facility] 04-02-2025 12:08-0400 SaO2% (BldA) [Mass fraction] 96 % Jignesh Gonsalez MD Work Phone: [facility] 04-02-2025 12:08-0400 Systolic blood pressure 128 mm[Hg] Jignesh Gonsalez MD Work Phone: [facility] 02-20-2025 13:33-0400 Body height 185.4 cm Jignesh Gonsalez MD Work Phone: [facility] 02-20-2025 13:33-0400 Body mass index (BMI) [Ratio] 40.77 kg/m2 Jignesh Gonsalez MD Work Phone: [facility] 02-20-2025 13:33-0400 Body temperature 96.6 [degF] Jignesh Gonsalez MD Work Phone: [facility] 02-20-2025 13:33-0400 Body weight 140.16 kg Jignesh Gonsalez MD Work Phone: [facility] 02-20-2025 13:33-0400 Diastolic blood pressure 76 mm[Hg] Jignesh Gonsalez MD Work Phone: [facility] 02-20-2025 13:33-0400 Heart rate 85 /min Jignesh Gonsalez MD Work Phone: [facility] 02-20-2025 13:33-0400 Respiratory rate 22 /min Jignesh Gonsalez MD Work Phone: [facility] 02-20-2025 13:33-0400 SaO2% (BldA) [Mass fraction] 92 % Jignesh Gonsalez MD Work Phone: [facility] 02-20-2025 13:33-0400 Systolic blood pressure 154 mm[Hg] Jignesh Gonsalez MD Work Phone: [facility] 01-21-2025 13:40-0500 Body height 185.4 cm Jignesh Gonsalez MD Work Phone: [facility] 01-21-2025 13:40-0500 Body mass index (BMI) [Ratio] 41.03 kg/m2 Jignesh Gonsalez MD Work Phone: [facility] 01-21-2025 13:40-0500 Body temperature 97.5 [degF] Jignesh Gonsalez MD Work Phone: [facility] 01-21-2025 13:40-0500 Body weight 141.07 kg Jignesh Gonsalez MD Work Phone: [facility] 01-21-2025 13:40-0500 Diastolic blood pressure 64 mm[Hg] Jignesh Gonsalez MD Work Phone: [facility] 01-21-2025 13:40-0500 Heart rate 87 /min Jignesh Gonsalez MD Work Phone: [facility] 01-21-2025 13:40-0500 Respiratory rate 20 /min Jignesh Gonsalez MD Work Phone: [facility] 01-21-2025 13:40-0500 SaO2% (BldA) [Mass fraction] 91 % Jignesh Gonsalez MD Work Phone: [facility] 01-21-2025 13:40-0500 Systolic blood pressure 130 mm[Hg] Jignesh Gonsalez MD Work Phone: [facility] 12-19-2024 13:35-0500 Body height 185.4 cm Amrik Pérez MD Work Phone: [facility] 12-19-2024 13:35-0500 Body mass index (BMI) [Ratio] 40.37 kg/m2 Amrik Pérez MD Work Phone: [facility] 12-19-2024 13:35-0500 Body weight 138.8 kg Amrik Pérez MD Work Phone: [facility] 12-19-2024 13:35-0500 Diastolic blood pressure 64 mm[Hg] Amrik Pérez MD Work Phone: [facility] 12-19-2024 13:35-0500 Heart rate 80 /min Amrik Pérez MD Work Phone: [facility] 12-19-2024 13:35-0500 Systolic blood pressure 112 mm[Hg] Amrik Pérez MD Work Phone: [facility] 11-22-2024 15:42-0500 Body height 185.4 cm Jignesh Gonsalez MD Work Phone: [facility] 11-22-2024 15:42-0500 Body mass index (BMI) [Ratio] 41.16 kg/m2 Jignesh Gonsalez MD Work Phone: [facility] 11-22-2024 15:42-0500 Body temperature 97.5 [degF] Jignesh Gonsalez MD Work Phone: [facility] 11-22-2024 15:42-0500 Body weight 141.52 kg Jignesh Gnosalez MD Work Phone: [facility] 11-22-2024 15:42-0500 Diastolic blood pressure 66 mm[Hg] Jignesh Gonsalez MD Work Phone: [facility] 11-22-2024 15:42-0500 Heart rate 33 /min Jignesh Gonsalez MD Work Phone: [facility] 11-22-2024 15:42-0500 Respiratory rate 20 /min Jignesh Gonsalez MD Work Phone: [facility] 11-22-2024 15:42-0500 SaO2% (BldA) [Mass fraction] 89 % Jignesh Gonsalez MD Work Phone: [facility] 11-22-2024 15:42-0500 Systolic blood pressure 148 mm[Hg] Jignesh Gonsalez MD Work Phone: [facility] 10-25-2024 15:32-0500 Body height 185.4 cm Jignesh Gonsalez MD Work Phone: [facility] 10-25-2024 15:32-0500 Body mass index (BMI) [Ratio] 40.9 kg/m2 Jignesh Gonsalez MD Work Phone: [facility] 10-25-2024 15:32-0500 Body temperature 97.5 [degF] Jignesh Gonsalez MD Work Phone: [facility] 10-25-2024 15:32-0500 Body weight 140.62 kg Jignesh Gonsalez MD Work Phone: [facility] 10-25-2024 15:32-0500 Diastolic blood pressure 70 mm[Hg] Jignesh Gonsalez MD Work Phone: [facility] 10-25-2024 15:32-0500 Heart rate 87 /min Jignesh Gonsalez MD Work Phone: [facility] 10-25-2024 15:32-0500 Respiratory rate 22 /min Jignesh Gonsalez MD Work Phone: [facility] 10-25-2024 15:32-0500 SaO2% (BldA) [Mass fraction] 90 % Jignesh Gonsalez MD Work Phone: [facility] 10-25-2024 15:32-0500 Systolic blood pressure 150 mm[Hg] Jignesh Gonsalez MD Work Phone: [facility] 09-07-2024 14:54-0400 Body height 185.42 cm MD Jignesh Gonsalez Work Phone: [facility] 09-07-2024 14:54-0400 Body mass index (BMI) [Ratio] 39.2 kg/m2 MD Jignesh Gonsalez Work Phone: [facility] 09-07-2024 14:54-0400 Body temperature 96.8 [degF] MD Jignesh Gonsalez Work Phone: [facility] 09-07-2024 14:54-0400 Body weight 134.94 kg MD Jignesh Gonsalez Work Phone: [facility] 09-07-2024 14:54-0400 Diastolic blood pressure 78 mm[Hg] MD Jignesh Gonsalez Work Phone: [facility] 09-07-2024 14:54-0400 Heart rate 93 /min MD Jignesh Gonsalez Work Phone: [facility] 09-07-2024 14:54-0400 Respiratory rate 20 /min MD Jignesh Gonsalez Work Phone: [facility] 09-07-2024 14:54-0400 SaO2% (BldA) [Mass fraction] 94 % MD Jignesh Gonsalez Work Phone: [facility] 09-07-2024 14:54-0400 Systolic blood pressure 119 mm[Hg] MD Jignesh Gonsalez Work Phone: [facility] 08-16-2024 10:34-0400 Body height 185.42 cm [facility] 08-16-2024 10:34-0400 Body mass index (BMI) [Ratio] 39 kg/m2 [facility] 08-16-2024 10:34-0400 Body temperature 96.8 [degF] [facility] 08-16-2024 10:34-0400 Body weight 134.26 kg [facility] 08-16-2024 10:34-0400 Diastolic blood pressure 77 mm[Hg] [facility] 08-16-2024 10:34-0400 Heart rate 73 /min [facility] 08-16-2024 10:34-0400 Respiratory rate 18 /min [facility] 08-16-2024 10:34-0400 SaO2% (BldA) [Mass fraction] 96 % [facility] 08-16-2024 10:34-0400 Systolic blood pressure 125 mm[Hg] [facility] 08-09-2024 13:10-0400 Body height 185.42 cm MD Jignesh Gonsalze Work Phone: [facility] 08-09-2024 13:10-0400 Body mass index (BMI) [Ratio] 39 kg/m2 MD Jignesh Gonsalez Work Phone: [facility] 08-09-2024 13:10-0400 Body temperature 98.5 [degF] MD Jignesh Gonsalez Work Phone: [facility] 08-09-2024 13:10-0400 Body weight 134.26 kg MD Jignesh Gonsalez Work Phone: [facility] 08-09-2024 13:10-0400 Diastolic blood pressure 64 mm[Hg] MD Jignesh Gonsalez Work Phone: [facility] 08-09-2024 13:10-0400 Heart rate 75 /min MD Jignesh Gonsalez Work Phone: [facility] 08-09-2024 13:10-0400 Respiratory rate 18 /min MD Jignesh Gonsalez Work Phone: [facility] 08-09-2024 13:10-0400 SaO2% (BldA) [Mass fraction] 93 % MD Jignesh Gonsalez Work Phone: [facility] 08-09-2024 13:10-0400 Systolic blood pressure 98 mm[Hg] MD Jignesh Gonsalez Work Phone: [facility] 05-15-2024 15:36-0400 Body height 185.42 cm MD Jignesh Gonsalez Work Phone: [facility] 05-15-2024 15:36-0400 Body mass index (BMI) [Ratio] 36.9 kg/m2 MD Jignesh Gonsalez Work Phone: [facility] 05-15-2024 15:36-0400 Body temperature 97.5 [degF] MD Jignesh Gonsalez Work Phone: [facility] 05-15-2024 15:36-0400 Body weight 127 kg MD Jignesh Gonsalez Work Phone: [facility] 05-15-2024 15:36-0400 Diastolic blood pressure 74 mm[Hg] MD Jignesh Gonsalez Work Phone: [facility] 05-15-2024 15:36-0400 Heart rate 81 /min MD Jignesh Gonsalez Work Phone: [facility] 05-15-2024 15:36-0400 Respiratory rate 18 /min MD Jignesh Gonsalez Work Phone: [facility] 05-15-2024 15:36-0400 SaO2% (BldA) [Mass fraction] 93 % MD Jignesh Gonsalez Work Phone: [facility] 05-15-2024 15:36-0400 Systolic blood pressure 119 mm[Hg] MD Jignesh Gonsalez Work Phone: [facility] 04-23-2024 13:06-0400 Body height 185.42 cm [facility] 04-23-2024 13:06-0400 Body mass index (BMI) [Ratio] 36.9 kg/m2 [facility] 04-23-2024 13:06-0400 Body temperature 97.3 [degF] [facility] 04-23-2024 13:06-0400 Body weight 127 kg [facility] 04-23-2024 13:06-0400 Diastolic blood pressure 56 mm[Hg] [facility] 04-23-2024 13:06-0400 Heart rate 80 /min [facility] 04-23-2024 13:06-0400 Respiratory rate 18 /min [facility] 04-23-2024 13:06-0400 SaO2% (BldA) [Mass fraction] 97 % [facility] 04-23-2024 13:06-0400 Systolic blood pressure 106 mm[Hg] [facility] 07-05-2023 10:00-0400 Body height 185.42 cm Luiz Riggs Other [employer] [employer] Other 07-05-2023 10:00-0400 Body mass index (BMI) [Ratio] 37.86 kg/m2 Luiz Riggs Other [employer] Other 07-05-2023 10:00-0400 Body weight 130.18 kg Luiz Riggs Other [facility] [employer] Other 07-05-2023 10:00-0400 Diastolic blood pressure 76 mm[Hg] Luiz Riggs Other [employer] Other 07-05-2023 10:00-0400 Systolic blood pressure 126 mm[Hg] Luiz Keely Other [employer] Other 04-06-2022 17:40-0400 Body height 185.42 cm Neelam Blackburnmond Other [employer] Other 04-06-2022 17:40-0400 Body mass index (BMI) [Ratio] 36.15 kg/m2 Neelam Blackburnmond Other [employer] Other 04-06-2022 17:40-0400 Body temperature 98 [degF] Neelam Blackburnmond Other [employer] Other 04-06-2022 17:40-0400 Body weight 124.29 kg Neelam Alexandra Other [employer] Other 04-06-2022 17:40-0400 Diastolic blood pressure 69 mm[Hg] Neelam Alexandra Other [employer] Other 04-06-2022 17:40-0400 Respiratory rate 18 /min Neelam Alexandra Other [employer] Other 04-06-2022 17:40-0400 SaO2% (BldA) [Mass fraction] 95 % Neelam Alexandra Other [employer] Other 04-06-2022 17:40-0400 Systolic blood pressure 123 mm[Hg] Neelam Alexandra Other [employer] Other 12-28-2021 17:00-0500 Body height 185.42 cm Alex Bonilla Other [employer] Other 12-28-2021 17:00-0500 Body mass index (BMI) [Ratio] 37.47 kg/m2 Alex Bonilla Other [employer] Other 12-28-2021 17:00-0500 Body weight 128.82 kg Alex Bonilla Other [employer] Other Encounters Encounter Date Encounter Type Care Provider Facility Start: 04-02-2025 End: 04-02-2025 Office outpatient visit 15 minutes Jignesh Gonsalez MD Work Phone: [facility] Comment on above: Chronic obstructive pulmonary disease with acute exacerbation (CMS/HCC) (Primary Dx); Chronic hypoxic respiratory failure (CMS/HCC) Start: 04-02-2025 End: 04-02-2025 Bamboo flowsheet Jignesh Gonsalez MD Work Phone: [facility] Start: 04-02-2025 End: 04-02-2025 Bamboo flowsheet Jignesh Gonsalez MD Work Phone: [facility] Start: 04-02-2025 End: 04-02-2025 ambulatory JIGNESH GONSALEZ Not Available Start: 03-28-2025 End: 03-28-2025 Telephone encounter Jignesh Gonsalez MD Work Phone: [facility] Start: 03-08-2025 End: 03-09-2025 Clinisync Result Encounter Generic External Data Provider [facility] External Department Unsolicited Start: 03-08-2025 End: 03-09-2025 Clinisync Result Encounter Generic External Data Provider [facility] External Department Unsolicited Start: 03-07-2025 End: 03-08-2025 Clinisync Result Encounter Mariana ALANIS Work Phone: [facility] External [facility] Unsolicited Start: 03-07-2025 End: 03-08-2025 Clinisync Result Encounter Mariana ALANIS Work Phone: [facility] External [facility] Unsolicited Start: [...] spinal stenosis Start: 01-22-2025 End: 01-22-2025 ambulatory ADELEAB [facility] Start: 01-21-2025 End: 01-21-2025 Bamboo flowsheet Jignesh Gonsalez MD Work Phone: [facility] Start: 01-21-2025 End: 01-21-2025 Bamboo flowsheet Jignesh Gonsalez MD Work Phone: [facility] Start: 01-21-2025 End: 01-21-2025 Office outpatient visit 15 minutes Jignesh Gonsalez MD Work Phone: [facility] Comment on above: Coronary artery dise ase involving [place] coronary artery of [place] heart without angina pectoris (CMS/HCC) (Primary Dx); SOB (shortness of breath) on exertion Start: 01-21-2025 End: 01-21-2025 ambulatory JIGNESH GONSALEZ Not Available Start: 01-12-2025 Evaluation and manag ement of inpatient [facility] Start: 01-11-2025 Evaluation and manag ement of inpatient [facility] Start: 01-11-2025 Evaluation and manag ement of inpatient [facility] Start: 01-11-2025 End: 01-13-2025 Evaluation and management of inpatient [facility] Start: 12-19-2024 End: 12-19-2024 Bamboo flowsheet Amrik Pérez MD Work Phone: [facility] Start: 12-19-2024 End: 12-19-2024 Bamivetho flowscuong Pérez MD Work Phone: [facility] [...] procedure Jose M Rea DO Work Phone: [facility]atan Comment on above: Screening for malign ant neoplasm of colon (Primary Dx) Start: 11-22-2024 End: 11-22-2024 Postop follow up visit related to original px Jignesh Gonsalez MD Work Phone: [facility] Comment on above: Medicare annual [...] Bamboo flowsheet Jignesh Gonsalez MD Work Phone: [facility] Start: 11-22-2024 End: 11-22-2024 Bamboo flowsheet Jignesh Gonsalez MD Work Phone: [facility] Start: 11-22-2024 End: 11-22-2024 Patient encounter procedure Jignesh Gonsalez MD Work Phone: [facility] Work Phone: Start: 11-15-2024 End: 11-15-2024 Refill Jignesh Gonsalez MD Work Phone: [facility] Comment on above: Degenerative lumbar spinal stenosis Start: 11-06-2024 End: 11-06-2024 Telephone encounter Imelda ALANIS Work Phone: [facility] Start: 10-30-2024 End: 10-30-2024 Clinical Support Chari Vela [facility] Work Phone: [facility] Comment on above: Sensorineural hearin g loss, bilateral (Primary Dx) Start: 10-30-2024 End: 10-30-2024 Bamboo flowsheet Chari Vela [facility] Work [facility] Start: 10-30-2024 End: 10-30-2024 Bamboo flowsheet Chari Vela [facility] Work Phone: [facility] Start: 10-25-2024 End: 10-25-2024 Office [...] [facility] Start: 10-24-2024 End: 10-24-2024 Reflubna Gonsalez MD Work Phone: [facility] Comment on above: Major depressive dis order, recurrent episode, mild (HCC) (CMS/HCC) Start: 10-17-2024 End: 10-17-2024 ambulatory Yancy Lawson Facility:[facility] Start: 10-11-2024 End: 10-11-2024 Timo Gonsalez MD Work Phone: [facility] Comment on above: Degenerative lumbar spinal stenosis Start: 09-25-2024 End: 09-25-2024 Reflubna Gonsalez MD Work Phone: [facility] Comment on above: Seizure disorder (CM S/HCC) Start: 09-07-2024 End: 09-07-2024 ambulatory MD Jignesh Gonsalez Work Phone: [facility] Work Phone: Start: 09-07-2024 End: 09-07-2024 Patient encounter procedure MD Jignesh Gonsalez Work Phone: [facility] Work Phone: Start: 08-16-2024 End: 08-16-2024 ambulatory [facility] Work Phone: Start: 08-16-2024 End: 08-16-2024 Patient encounter procedure [facility] Work Phone: Start: 08-09-2024 End: 08-09-2024 ambulatory MD Jignesh Gonsalez Work Phone: [facility] Work Phone: Start: 08-09-2024 End: 08-09-2024 Patient encounter procedure MD Jignesh Gonsalez Work Phone: [facility] Work Phone: Start: 08-08-2024 ambulatory [facility] Start: 07-26-2024 End: 07-26-2024 ambulatory [facility] Start: 07-18-2024 End: 07-18-2024 Timo Gonsalez MD Work Phone: [facility] Comment on above: Seizure disorder (CM S/HCC) Start: 06-13-2024 End: 06-13-2024 ambulatory IMELDA THOMPSON Not Available Start: 05-21-2024 End: 05-21-2024 ambulatory JIGNESH GONSALEZ Not Available Start: 05-16-2024 End: 05-16-2024 ambulatory IMELDA THOMPSON Not Available Start: 05-15-2024 End: 05-15-2024 ambulatory MD Jignesh Gonsalez Work Phone: [facility] Work Phone: Start: 05-15-2024 End: 05-15-2024 Patient encounter procedure MD Jignesh Gonsalez Work Phone: [facility] Work Phone: Start: 04-23-2024 End: 04-23-2024 ambulatory [facility] Work Phone: Start: 04-23-2024 End: 04-23-2024 Patient encounter procedure [facility] [facility] [place] Work Phone: Start: 04-17-2024 End: 04-17-2024 ambulatory CORNELIO COTTER Not Available Start: 12-30-2023 ambulatory Chris CAMARILLO Facili ty:[facility] Start: 12-21-2023 Telephone encounter Epifanio dennison MD Work Phone: [facility] NeuroSurgery Start: 12-20-2023 ambulatory [facility] Start: 07-18-2023 End: 07-19-2023 ambulatory JIGNESH GONSALEZ Facility:[facility] Start: 07-18-2023 End: 07-18-2023 Patient encounter procedure Chris CAMARILLO [facility] Start: 07-05-2023 Office outpatient ne w 30 minutes Luiz Riggs [facility] Neurosurgery Start: 07-05-2023 End: 07-05-2023 ambulatory MD Jignesh Gonsalez Work Phone: [facility] Work Phone: Start: 07-05-2023 End: 07-05-2023 Patient encounter procedure MD Jignesh Gonsalez Work Phone: [facility] [place] Work Phone: Start: 01-07-2023 End: 01-08-2023 ambulatory [...] 04-06-2022 End: 04-06-2022 ambulatory Neelam Morris Other [employer] Other Start: 04-06-2022 Office outpatient vi sit 15 minutes Neelam Morris [facility] [place] Start: 12-28-2021 End: 12-28-2021 ambulatory Alex Bonilla Other [employer] Other Start: 12-28-2021 Office outpatient ne w 30 minutes Alex Bonilla [facility] Neurosurgery Start: 11-20-2020 End: 11-20-2020 Emergency department patient visit KARINA JAY Facility:[facility] Procedures Date Procedure Procedure Detail Performing Clinician Start: 03-08-2025 Epithelial cells LM Ql (Urine sed) Generic External Data Provider Start: 03-08-2025 GRAM STAIN EVALUATION G eneric External Data Provider Start: 03-08-2025 Leukocytes [#/volume ] in Blood Generic External Data Provider Start: 03-08-2025 LOWER RESPIRATORY CULTURE Generic External Data Provider Start: 03-08-2025 RESULT 1 Generic Ex ternal Data Provider Start: 03-08-2025 RESULT 2 Generic Ex ternal Data Provider Start: 03-08-2025 RESULT 3 Generic Ex ternal Data Provider Start: 03-08-2025 RESULT 4 Generic Ex ternal Data Provider Start: 03-07-2025 ECG 12-LEAD Mariana ALANIS Work Phone: Start: 02-22-2025 RT PULMONARY FUNCTION TEST Jignesh [...] Comment on above: Performed By: #### P [facility] #### [facility] [address] [place] [address] Dr. Jeimy Tenorio Extraction of cataract Patri [...] [facility] [address] [place] [address] Jignesh Gonsalez MD [address] [place] [address] [facility] Start: 04-02-2025 End: 04-02-2025 Patient encounter procedure [facility] Comment on above: Arrived Start: 02-20-2025 End: 02-20-2025 Patient encounter procedure [facility] Comment on above: Arrived Start: 01-21-2025 End: 01-21-2025 Patient encounter procedure 01/21/2025 1:45 PM EST Office Visit [facility] [address] [place] [address] Jignesh Gonsalez MD [address] [place] [address] Arrived [facility] Comment on above: Arrived Start: 12-19-2024 End: 12-19-2024 Patient encounter procedure 12/19/2024 1:40 PM EST Office Visit [facility] [address] [place] [phone] Amrik Pérez MD [address] [place] [address] Deviated nasal septum; Chronic rhinosinusitis [facility] Comment on above: Deviated nasal septu m; Chronic rhinosinusitis Start: 11-26-2024 End: 11-26-2024 Patient encounter procedure 11/26/2024 2:00 PM EST Office Visit [facility] [address] [place] [phone] Jose M Rea DO [address] [place] [phone] [facility] Start: 11-22-2024 End: 11-22-2024 [...] of medication Expected: 11/22/2024 (Approximate), Expires: 11/22/2025 [facility] Comment on above: Expected: 11/22/2024 (Approximate), Expires: 11/22/2025 Start: 11-22-2024 End: 11-22-2025 Hepatic function 2000 panel - Serum or Plasma Hepatic function panel Lab Routine Encounter for long-term current use of medication Expected: 11/22/2024 (Approximate), Expires: 11/22/2025 [facility] Comment on above: Expected: 11/22/2024 (Approximate), Expires: 11/22/2025 Start: 11-22-2024 End: 11-22-2025 Lipid 1996 panel - Serum or Plasma Lipid panel Lab Routine Dyslipidemia ([facility]) Expected: 11/22/2024 (Approximate), Expires: 11/22/2025 [facility] Comment on above: Expected: 11/22/2024 (Approximate), Expires: 11/22/2025 Start: 11-22-2024 End: 11-22-2025 Prostate specific Ag [Mass/volume] in Serum or Plasma PSA Lab Routine Screening PSA (prostate specific antigen) Expected: 11/22/2024 (Approximate), Expires: 11/22/2025 [facility] Comment on above: Expected: 11/22/2024 (Approximate), Expires: 11/22/2025 Start: 11-22-2024 End: 11-22-2025 Thyrotropin [Units/volume] in Serum or Plasma TSH Lab Routine Class 3 severe obesity due to excess calories with serious comorbidity and body mass index (BMI) of 40.0 to 44.9 in adult ([facility]/HCC) Expected: 11/22/2024 (Approximate), Expires: 11/22/2025 [facility] Comment on above: Expected: 11/22/2024 (Approximate), Expires: 11/22/2025 Start: 10-25-2024 End: 10-25-2024 Patient encounter procedure [facility] Comment on above: Arrived Start: 10-25-2024 End: 10-25-2025 CT Maxillofacial region WO and W contrast IV CT SINUS WO IV CONTRAST Imaging Routine Chronic rhinosinusitis Expected: 10/25/2024, Expires: 10/25/2025 [facility] Work Phone: Comment on above: Expected: 10/25/2024 , Expires: 10/25/2025 Start: 09-27-2024 End: 09-27-2024 Patient encounter procedure 09/27/2024 3:30 PM EST Office Visit [facility] [address] [place] [phone] Jignesh Gonsalez MD [address] [place] [phone] [facility] Start: 07-22-2024 Influenza vaccination Influenza Vacc ine (#1) [facility] Start: 12-30-2023 COVID-19 Vaccine ( season) COVID-19 Vaccine ( season) [facility] Start: 08-16-2023 Adult BMI Screening Adult BMI Screen ing [facility] Start: 08-16-2023 Fall Risk Screening Fall Risk Screen ing [facility] Start: 08-16-2023 Tobacco Screening Tobacco Screening [facility] Start: 08-05-2021 Pneumococcal Vaccine : 65+ Years (2 of 2 - PCV) Pneumococcal Vaccine: 65+ Years (2 of 2 - PCV) [facility] Start: 1974 Administration of varicella zoster vaccine Zoster (Shingles) Vaccine (1 of 2) [facility] Start: 1974 DTaP,Tdap and Td Vaccines (1 - Tdap) DTaP,Tdap and Td Vaccines (1 - Tdap) [facility] Start: 1967 Depression Screening Depression Scre ening [facility] Start: 1955 Medicare Annual Well ness (AWV) Medicare Annual Wellness (AWV) [facility] Start: 1955 Medicare Annual Well ness Visit Medicare Annual Wellness Visit [facility] Start: 1955 Screening for malign ant neoplasm of colon [facility] LOWER RESPIRATORY CULTURE LOWER RESPIRATORY CULTURE Lab Routine 03/08/2025 8:00 AM EDT [facility] MR Knee - right WO contrast MR knee right wo IV contrast Imaging Routine Chronic pain of right knee Internal derangement of right knee Ordered: 10/25/2024 [facility] Comment on above: Ordered: 10/25/2024 Pulmonary function report Pulmonary Function Test Imaging Routine SOB (shortness of breath) on exertion Ordered: 01/21/2025 [facility] Work Phone: Comment on above: Ordered: 01/21/2025 XR Knee - right 4 Views [facility] Immunizations Immunization Date Immunization Notes Care Provider Fa cility 10-11-2024 influenza virus vacc ine, unspecified formulation Jignesh Gonsalez MD Work Phone: [facility] 11-04-2023 Covid-19, Mrna, Lnp- s, Bivalent, Pf, 30mcg/0.3 ml Epifanio Kaufman MD Work Phone: [facility] 11-04-2023 Influenza, Seasonal, Quadrivalent, Adjuvanted Jignesh Gonsalez MD Work Phone: [facility] 11-04-2023 influenza virus vacc ine, unspecified formulation Jignesh Gonsalez MD Work Phone: [facility] 08-21-2022 influenza virus vacc ine, unspecified formulation Epifanio Kaufman MD Work Phone: [facility] 08-21-2022 Influenza, High-dose Seasonal, Quadrivalent, Preservative Free Jignesh Gonsalez MD Work Phone: [facility] 08-21-2022 SARS-COV-2 (COVID-19 ) Vaccine, Unspecified Epifanio Kaufman MD Work Phone: [facility] 08-06-2021 Influenza Vaccine, Quadrivalent, Adjuvanted Jignesh Gonsalez MD Work Phone: [facility] 02-25-2021 COVID-19, mRNA, LNP- S, PF, 100mcg/0.5mL Dose Jignesh Gonsalez MD Work Phone: [facility] 02-12-2021 COVID-19, mRNA, LNP- S, PF, 30mcg/0.3mL Dose Epifanio Kaufman MD Work Phone: [facility] 08-05-2020 influenza, injectabl e, quadrivalent, preservative free Jignesh Gonsalez MD Work Phone: [facility] 08-05-2020 pneumococcal polysaccharide vaccine, 23 valent Jignesh Gonsalez MD Work Phone: [facility] 09-03-2019 influenza, seasonal, injectable Jignesh Gonsalez MD Work Phone: [facility] 08-24-2019 influenza, injectabl e, quadrivalent, preservative free Jignesh Gonsalez MD Work Phone: [facility] Payers Date Payer Category Payer Self-pay [id number] 2023 Medicaid [id number] 2023 Medicaid [id number] 2022 Medicare [id number] 2021 Medicare [id number] 2021 Unknown [id number] 2021 Medicare [id number] 2020 Medicare [id number] 2019 Unknown [id number] 1959 Medicare [id number] 2. [id number] 1955 Unknown [id number] 2.16.8 40.1.158041.3.579.2.647 1955 Unknown [id number] 2.16.84 0.1.555544.3.579.2.593 1955 Unknown [id number] 2.16.84 0.1.892534.3.579.2.593 1955 Unknown [id number] 2.16.84 0.1.482367.3.579.2.593 1955 Unknown [id number] 2.16.84 0.1.256382.3.579.2.593 1955 Unknown [id number] 2.16.84 0.1.217417.3.579.2.593 1955 Unknown [id number] 2.16.84 0.1.787967.3.579.2.593 1955 Unknown [id number] 2.16.84 0.1.787523.3.579.2.593 1955 Unknown [id number] 2.16.8 40.1.002101.3.579.2.1286 1955 Unknown [id number] 2.16.8 40.1.285338.3.579.2.727 1955 Unknown [id number] 2.16.8 40.1.760978.3.579.2.727 1955 Unknown [id number] 2.16.84 0.1.383334.3.579.2.1259 1955 Unknown [id number] 2.16.84 0.1.230093.3.579.2.1259 1955 Unknown [id number] 2.16.84 0.1.513331.3.579.2.1259 1955 Unknown [id number] 2.16.84 0.1.060661.3.579.2.1259 1955 Unknown [id number] 2.16.84 0.1.658002.3.579.2.1259 1955 Unknown [id number] 2.16.84 0.1.385562.3.579.2.1259 1955 Unknown [id number] 2.16.84 0.1.913596.3.579.2.1259 1955 Unknown [id number] 2.16.84 0.1.328240.3.579.2.9 1955 Unknown [id number] 2.16.84 0.1.201452.3.579.2.1259 1955 Unknown [id number] 2.16.84 0.1.449695.3.579.2.1258 1955 Unknown [id number] 2.16.84 0.1.119578.3.579.2.1259 1955 Unknown [id number] 2.16.84 0.1.354983.3.579.2.9 1955 Unknown [id number] 2.16.84 0.1.608477.3.579.2.9 1955 Unknown [id number] 2.16.84 0.1.793489.3.579.2.1259 Medicare [id number] Unknown [id number] 2.16.8 40.1.039672.3.579.2.531 Unknown [id number] 2.16.8 40.1.989675.3.579.2.531 Unknown [id number] 2.16.8 40.1.374471.3.579.2.531 Social History Date Type Detail Facility Start: 12-14-2023 End: 01-15-2025 Sex Assigned At [facility] Start: 1955 Sex Assigned At Male F [facility] Tobacco smoking status No Smoking Status Entered [facility] [employer] Start: 04-23-2024 Tobacco smoking status NCIS Never smoked tobacco (finding) [facility] Start: 01-11-2024 End: 12-19-2024 Tobacco smoking status NCIS Ex-smoker [facility] Start: 11-21-1971 End: 04-18-1997 History of tobacco use Current smoker [facility] Start: 11-21-1971 End: 04-18-1997 History of tobacco use Cigarette Smoker [facility] Start: 01-11-2024 End: 12-19-2024 Tobacco use and exposure Smokeless tobacco non-user [facility] Start: 05-21-2024 End: 04-02-2025 Alcoholic beverage intake Lifetime non-drinker (finding) [facility] Start: 12-14-2023 End: 01-15-2025 History of [...] Sex assigned at Not on file [facility] Start: 08-16-2022 Alcohol intake Ex-drinker (finding) [facility] NEGATED: Highlighted rowStart: NINF History of tobacco use Passive smoker [facility] Clinical Notes 11-21-2020 to 04-02-2025 Jignesh Gonsalez MD - 04/02/2025 3:15 PM Long Gonsalez MD - 04/02/2025 12:37 PM Long Gonsalez MD - 04/02/2025 12:37 PM EDTTelephone Encounter - Jignesh Gonsalez MD - 03/28/2025 3:25 PM EDT Note Date & Type Note Facility 04-02-2025 History of Presen t illness Narrative Images from the original note were not included. Subjective Patient ID: Nathan Cortes is a 70 y.o. male who presents for Follow-up ([facility] hospital f/u). Hospital follow up from 03/24-03/27 for COPD exacerbation. Recently admitted 03/07-03/11 with pneumonia and treated. Discharged on oxygen. Developed worsening SOB and hypoxia. Returned to ER and found COPD exacerbation. On steroids and antibiotics. Improved in hospital and home on zithromax and prednisone. Slowly improving. Less SOB and mild cough. Chest not as tight. Continues to have fatigue with exertion and remains on oxygen. Review of Systems Constitutional: Negative for fatigue. [...] Assessment/Plan Problem List Items Addressed This Visit COPD (chronic obstructive pulmonary disease) (CMS/HCC) - Primary Symptoms improved after treatment and monitor. Use inhalers daily and albuterol PRN. Chronic hypoxic respiratory failure (CMS/HCC) Wean oxygen as tolerated. Associated Problem(s): COPD (chronic obstructive pulmonary disease) (CMS/HCC) Symptoms improved after treatment and monitor. Use inhalers daily and albuterol PRN. Associated Problem(s): Chronic hypoxic respiratory failure (CMS/HCC) Wean oxygen as tolerated. documented in this encounter [facility] 03-28-2025 Telephone encounter Note Form atting of this note might be different from the original. Sent [facility] 03-28-2025 Miscellaneous Notes Formattin g of this note might be different from the original. Sent Insurance called states that they will not cover spirva, but they will cover incruse ellipta. clm documented in this encounter [facility] 03-28-2025 Telephone encounter Note Form atting of this note might be different from the original. Insurance called states that they will not cover spirva, but they will cover incruse ellipta. clm [facility] 03-09-2025 Note Gram Stain Evaluation This specimen is of good quality and is acceptable for routine [facility] 03-09-2025 Note [facility] GRAM STAIN EVALUATION bacterial culture. [facility] 02-20-2025 History of Present illness Narrative Associated Problem(s): SOB (shortness of [...] and monitor PRN. documented in this encounter [facility] 01-22-2025 Note [facility] Cardiology Clinic Note Chief Complaint: Patient here for follow up [facility]. Underwent heart cath on [...] a past medical history of Bladder cancer ([facility]), Cholelithiasis, Colon polyp, Depression, Dyslipidemia, Hearing [...] needed each day., Disp: , Rfl: HYDROcodone-acetaminophen (Hammond) 5-325 mg tablet, take 1 tablet by [...] or chew., Disp: 30 tablet, Rfl: 0 uboebhmvcqrg-adba-zwykztsf-folic acid (Multivitamin 50 Plus) tablet, 1 (one) [...] PSYCH: appropriate mood, affect, and judgement. INVESTIGATIONS: Echocardiogram-[facility] Name: NAZARIO CORTES Study Date: 01/11/2025 10:06 AM B/P: 142 mmHg/84 mmHg HR: Date of : 1955 Location: [facility] Height: 74 in. Age: 69 year(s) Patient Room : 3140 Weight: (more content not included)... [facility] 01-21-2025 History of Present illness Narrative Associated Problem(s): SOB (shortness of breath) on exertion Signs of COPD and check PFTs. Start albuterol PRN. Associated Problem(s): Coronary artery disease involving [place] coronary artery of [place] heart without angina pectoris (CMS/HCC) Symptoms improved with medication change and follow with cardiology. Images from the original note were not included. Subjective Patient ID: Nathan Cortes is a 69 y.o. male who presents for Follow-up (Hospital f/up SD). Hospital follow up from 01/09-01/13 for unstable angina. Developed chest pain and to ER. CE normal and echo normal. Continued to have pain and seen by cardiology. Concerned of unstable angina and transferred to [facility] 01/10. Heart cath performed and showed 3 [...] Addressed This Visit Coronary artery disease involving [place] coronary artery of [place] heart without angina pectoris (CMS/HCC) - Primary Symptoms improved with medication change and follow with cardiology. SOB (shortness of breath) on exertion Signs of COPD and check PFTs. Start albuterol PRN. Relevant Medications albuterol HFA 90 mcg/act inhaler Other Relevant Orders Pulmonary Function Test documented in this encounter [facility] 01-13-2025 Note Sent the AVS to [place]. Dianna prather [facility] 01-13-2025 Note Physical Therapy Physical Therapy [...] year old male present as transfer from [facility] for chest pain. On 01/11/25, pt [...] Level of Function Prior Function Level of Page: Independent with ADLs and functional transfers, Independent [...] Independent Bed Mobilit (more content not included)... [facility] 01-13-2025 Note [facility] are has accepted. [facility] 01-13-2025 Note Hospital Medicine Discharge Summary Final Discharge Diagnosis: Unstable angina KAROL History of seizures Hyperlipidemia Falls at home Obese class 2 - BMI 40 Admission Diagnosis: Unstable angina (CMS/[facility]) [I20.0] Hospital course: Nazario Cortes is an 69 y.o. male who came from [facility] with Angina pectoris unstable. Patient is a 69-year-old male with the following past medical history CAD, HLD, depression, history of seizures, obstructive sleep apnea, obesity, history of bladder cancer diagnosed 2018 with tumor removal. Patient was transferred from [facility] where he has been admitted on being managed for chest pain. He was seen by cardiology and after consultation patient was transferred to [facility] for cardiac catheterization tomorrow. [...] consulted. WE will arrange home health through [facility]. Surgical, Invasive or Diagnostic Procedures Done During [...] left radial artery was obtained. A 6 Upper Sorbian glide sheath was inserted without difficulty. Bilateral [...] Toprol-XL Take 1 (more content not included)... [facility] 01-12-2025 Note Attestation signed by Jony Webber [...] to the follow-up visit Jony Webber MD, [facility] Cardiology Progress Note Subjective Subjective: Patient [...] Value Ventricular Rate 70 Atrial Rate 70 IA Interval 210 QRS DURATION 78 QT Interval 410 QTC CALCULATION(BAZETT) 442 P Swisher 35 R-Swisher -9 T Wave Swisher 36 Impression Sinus rhythm with 1st degree A-V block Otherwise normal ECG When compared with ECG of 20-NOV-2020 10:48, IA interval has increased Confirmed by Thomas YOUNGER, MILAGROS Garcia ([id number]) on 01/11/2025 1:02:38 PM Lab Results Component Value Date TROPONINI 0.01 01/11/2025 Transthoracic echo (TTE) complete Result Date: 01/11/2025 1 1 [facility] Heart Station [address] [place] [address] [phone] (fax) Echocardiogram-[facility] Name: NAZARIO CORTES Study Date: 01/11/2025 10:06 AM B/P: 142 mmHg/84 mmHg HR: Date of : 1955 Location: [facility] Height: 74 in. Age: [...] 3 mmHg L (more content not included)... [facility] 01-12-2025 Note Hospital Medicine Daily Progress Note - 01/12/2025 11:29 AM; Room: [facility] Admission: 01/11/2025 12:29 AM; Length of stay: 1 days THE HOSPITALIST TEAM PREFERS TO USE [employer] CHAT FOR NON-URGENT COMMUNICATION 7AM-7PM. IF I DO NOT RESPOND WITHIN 20 MINUTES OR URGENT MATTERS, PLEASE CALL THROUGH THE APPLICATION CHEMIST. FROM 7PM-7AM, PLEASE PAGE [phone](COVR). Code Status: Full Code Barriers to Discharge: chest pain Expected Discharge Date: tomorrow? Discharge Destination: home Overview Nazario Cortes is an 69 y.o. male who came from [facility] with Angina pectoris unstable. Patient is a 69-year-old male with the following past medical history CAD, HLD, depression, history of seizures, obstructive sleep apnea, obesity, history of bladder cancer diagnosed 2018 with tumor removal. Patient was transferred from [facility] where he has been admitted on being managed for chest pain. He was seen by cardiology and after consultation patient was transferred to [facility] for cardiac catheterization tomorrow. [...] LDL 97 01/12/2025 No results found for: [id number] , IRON , TIBC , C3 , [...] Fibrosis and sc (more content not included)... [facility] 01-11-2025 Note communication receiv ed that Patient is reporting having multiple falls at home and is reporting spouse has a nurse Enedelia from [facility], so would like [place] if needing [facility] services. Preliminary referral sent to Sarah via [employer]. [facility] 01-11-2025 Note 01/11/25 [id number] Admission Assessment Questions Verify insurance with patient [...] Status Interested Does the patient have a supervisor case loading assigned to them through their insurance? No Living Arrangement (Current/Prior to Hospitalization) Private residence (lives at home with ) Does the patient have history of HHC or SNF? Yes (hx of HHC not active, when patient use to live in [place], patient stated his kadi has sarah (nurses name is enedelia)) Assistive Device Other [...] you able to send link and activate [email or web address]? MyChart already active [facility] 01-11-2025 Note -Patient pain contro l. -Patient's hydrocodone 5/325 as needed -Continue other home medications per reconciliation Maintain DVT prophylaxis DVT protocols GI protection Protonix Monitor labs and correct abnormalities Discussed the plan of care with patient's nurse and with the patient himself and he is in agreement. [facility] 01-11-2025 Note -Continue statins. [facility] 01-11-2025 Note -Treat with statins -Manage also with nitrates -Aspirin -Consult cardiology and prep for heart cath later on today. [facility] 01-11-2025 Note -Seizures currently stable resume and reconcile home anticonvulsants [facility] 01-11-2025 Note -Chronic problem we will continue to monitor [facility] 01-11-2025 Note -Use nitroglycerin a nd nitrates -N.p.o. after midnight -Will need to proceed to have cath tomorrow -Consult cardiology. [facility] 01-11-2025 Note Hospital Medicine History and Physical 01/11/2025 1:38 AM THE HOSPITALIST TEAM PREFERS TO USE [employer] FOR NON-URGENT COMMUNICATION 7AM-7PM. IF I DO NOT RESPOND WITHIN 20 MINUTES OR URGENT MATTERS, PLEASE CALL THROUGH THE APPLICATION CHEMIST. FROM 7PM-7AM, PLEASE PAGE [phone](COVR). Chief Complaint No chief complaint on file. History of Present Illness Nazario Cortes is an 69 y.o. male who came from [facility] with Angina pectoris unstable. Patient is a 69-year-old male with the following past medical history CAD, HLD, depression, history of seizures, obstructive sleep apnea, obesity, history of bladder cancer diagnosed 2018 with tumor removal. Patient was transferred from [facility] where he has been admitted on being managed for chest pain. He was seen by cardiology and after consultation patient was transferred to [facility] for cardiac catheterization tomorrow. [...] current laboratory findings are available here at [facility]. Review of System and [...] sleep apnea comes seen on transfer from [facility] with unstable angina. Patient is being prepped for cardiac catheterization tomorrow by cardiology. Assessment & Plan Unstable angina ([facility]) -Use nitroglycerin and nitrates -N.p.o. after midnight -Will need to proceed to have cath tomorrow -Consult cardiology. Coronary arteriosclerosis -Treat with statins -Manage also with nitrates -Aspirin -Consult cardiology and prep for heart cath later on today. Dyslipidemia -Continue statins. Malignant neoplasm of urinary bladder ([facility]) -Chronic problem we will continue to monitor Seizure disorder ([facility]) -Seizures currently stable resume and reconcile [...] hospital stay by a member of [facility]. Past Medical History Past Medical History: Diagnosis Date Bladder cancer ([facility]) around 1997 Cholelithiasis Colon polyp Depression Dyslipidemia Hearing loss Left foot drop Peripheral neuropathy Seizure disorder ([facility]) TIA (transient ischemic (more content not included)... 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[facility]) 08/04/2023 Degenerative lumbar spinal stenosis 08/04/2023 Deviated nasal septum 10/26/2023 Dyslipidemia ([facility]) 10/26/2023 Major depressive disorder, recurrent episode, mild (HCC) ([facility]) 10/26/2023 Malignant neoplasm of urinary bladder ([facility]) 10/26/2023 Seizure disorder ([facility]) 10/26/2023 Coronary arteriosclerosis ([facility]) 07/21/2020 Class 3 severe obesity due to excess calories with serious comorbidity and body mass index (BMI) of 40.0 to 44.9 in adult ([facility]) 01/12/2021 Encounter for long-term current use of medication 11/29/2023 Screening PSA (prostate specific antigen) 11/29/2023 Chest pain due to CAD ([facility]) 01/11/2024 KAROL (obstructive sleep apnea) 02/21/2024 [...] pain Seizures (CMS/HCC) Sleep apnea 1998 Stroke (CMS/HCC) 2009 Syncope, unspecified syncope type Tinnitus 1997 [...] on the RT. documented in this encounter [facility] 11-27-2024 History of Present illness Narrative General Surgery H&P Nazario Cortes [...] Ashley Rea DO documented in this encounter [facility] 11-22-2024 History of Present illness Narrative Associated Problem(s): Malignant neoplasm of urinary bladder ([facility]/HCC) Follow up with urology. Associated Problem(s): Seizure disorder ([facility]/HCC) Continue medication. Associated Problem(s): Major depressive disorder, recurrent episode, mild (HCC) ([facility]) Symptoms stable and continue celexa. Associated Problem(s): Class 3 severe obesity due to excess calories with serious comorbidity and body mass index (BMI) of 40.0 to 44.9 in adult ([facility]) Weight loss indicated. Associated Problem(s): Medicare annual [...] not to smoke. documented in this encounter [facility] 11-06-2024 Telephone encounter Note Spoke to Janet, Chart was audited from 05/20/23 and needed my signature on the document.. added and faxed to [facility]. [facility] Work Phone: 11-06-2024 Miscellaneous Notes Spoke to [...] kept ringing. Please call her back at [phone]. documented in this encounter [facility] 11-06-2024 Telephone encounter Note Her name is Janet that called not Neetu. [facility] 11-06-2024 Telephone encounter Note Neetu from [facility] called and left vm that she needs a return call. She stated she has called a few times and has not received a call back regarding this patient. I tried to call back and it just kept ringing. Please call her back at [phone]. [facility] 10-30-2024 History of Present illness Narrative Pt picked up supplies documented in this encounter [facility] 10-25-2024 History of Present illness Narrative Associated Problem(s): Internal derangement of [...] spasms. Continue PT exercises. Relevant Medications HYDROcodone-acetaminophen (Hammond) 5-325 MG tablet Chronic rhinosinusitis Continued congestion [...] to General Surgery documented in this encounter [facility] 08-08-2024 Note SUBJECTIVE: Chief complaint: Back pain. [...] about 6 or 7 years ago, in [facility] and had injections, which he states he has made his symptoms worse. Not interested in pursuing additional injections. Has had neonatal intensive care nurse many years ago for previous [...] Past Medical History: Diagnosis Date Bladder cancer ([facility]) around 1997 Cholelithiasis Colon polyp Depression Dyslipidemia Hearing loss Left foot drop Peripheral neuropathy Seizure disorder ([facility]) TIA (transient ischemic attack) Past Surgical [...] needed each day., Disp: , Rfl: HYDROcodone-acetaminophen (Hammond) 5-325 mg tablet, take 1 tablet by mouth four times a day if needed for severe pain for up to 7 days, Disp: , Rfl: meclizine (Antivert) 25 mg tablet, take 1 tablet by mouth four times a day if needed for dizziness, (more content not included)... [facility] 12-21-2023 Miscellaneous Notes Received faxed referral for patient to be seen for Lumbar. Called and spoke to patient, stated he has an appointment set up already at [facility] office. documented in this encounter [employer] 12-21-2023 Telephone encounter Note Received faxed referral for patient to be seen for Lumbar. Called and spoke to patient, stated he has an appointment set up already at [facility] office[facility]23 Evaluation note Encounter Date Diagnosis Assessment [...] fusion of cervical spine (ICD-10 - Z98.1) [employer] Other 06-09-2023 Hospital Discharge instructions Follow Up Care 04/29/2023 15:31:28 With:RABIA GAN, Chris Brizuela, URL Address: [facility] [address], [place] [address]- [phone] When: Unknown [facility] 11-10-2022 NotePROCEDURE: XR FOOT RT [...] authenticated by: KELL BLANDON Date: 2022-09-30 08:07 [id number] NotePROCEDURE: XR KNEE LT 4V or >, [...] authenticated by: TRINIDAD BEAVER Date: 2022-08-23 14:20[id number] NotePROCEDURE: XR KNEE LT 4V or >, [...] Electronically authenticated by: TRINIDAD BEAVER Date: 2022-08-23 14:[facility]10-03-2022 NotePROCEDURE: XR KNEE LT 4V or [...] Electronically authenticated by: TRINIDAD BEAVER Date: 2022-08-23 14:[facility]05-17-2022 Evaluation note* Encounter Date Diagnosis Assessment Notes Treatment Notes Treatment Clinical Notes March, Bilateral impacted cerumen (ICD-10 - H61.23) Avoid using Q-tips or earplugs. Keep your ears clean and dry. Follow-up with your family physician for any further concerns. [employer] Other 02-07-2022 Evaluation note* Encounter Date Diagnosis [...] contact us for further management as needed. [employer] Other 01-01-2021 NoteMR#: [id number] E [facility] Pt. Name: Nazario Cortes Admitted: 11/20/2020 Discharged: [...] history of coronary artery disease, followed by [facility] Cardiology Clinic that presents to the [facility] Emergency Department with complaints [...] to follow up with his PCP and resolution specialist. Total time of discharge was 45 minutes. Electronically Signed by: Trinidad Hamilton MD 11/21/2020 08:00 A Trinidad Hamilton MD .. Date Dict: 11/20/2020/06:21 P/Loida Ashley CNP Date Trans: 11/21/2020 12:04 A/shabbir [id number] cc: Jose Mccloud M.D. [address] [place] [address]lfGreen [facility] HospitalEvaluation + [facility] note Future Appointments Appointment Date:08/19/2023 10:30:00 AM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
--- NOTE | 2025-04-04 22:08 | ED.SOB1 ---
HPI - SOB/Dyspnea General Chief Complaint: Shortness of Breath/Dyspnea Stated Complaint: SHORTNESS OF BREATH Time Seen by Provider: 04/04/25 21:50 Source: patient Mode of arrival: ambulance Limitations: no limitations History of Present Illness HPI Narrative: This 70-year-old male with a history of COPD and CHF who is home oxygen dependent presents for evaluation of increasing shortness of breath over the course of the past several days. The patient states he recently saw his family physician, Dr. Manjarrez, who prescribed him Nebules for a nebulizer. The patient states he does not have a nebulizer and thought that he could use his oxygen concentrator with this medication. Patient states he has a bad cough and has severe exertional dyspnea. He denies any specific chest pain except when he is coughing. He has not had a fever. He has some mild lower extremity swelling which is unchanged for him. He denies that his weight is up. He has no abdominal pain or back pain. He denies any dizziness or syncope. He is on Lasix. Related Data Home Medications ?Medication ?Instructions ?Recorded ?Confirmed atorvastatin 10 mg tablet 10 mg PO .hs 05/12/23 03/24/25 citalopram 40 mg tablet 40 mg PO DAILY 05/12/23 03/24/25 phenytoin sodium extended 100 mg 200 mg PO TID 05/12/23 03/24/25 capsule furosemide 40 mg tablet 40 mg PO DAILY PRN edema 05/24/24 03/25/25 nitroglycerin 0.3 mg sublingual 0.3 mg sublingual Q5M PRN chest 05/24/24 03/24/25 tablet pain psyllium husk 0.4 gram capsule 0.4 g PO DAILY 12/04/24 03/24/25 (Daily Fiber) aspirin 81 mg tablet,delayed 81 mg PO DAILY 01/09/25 03/24/25 release (Adult Low Dose Aspirin) albuterol sulfate 90 mcg/actuation 2 inh inhalation Q4H PRN shortness 02/21/25 03/24/25 aerosol inhaler of breath or wheezing fluticasone propionate 50 2 spray intranasal DAILY 02/21/25 03/25/25 mcg/actuation nasal spray,suspension metoprolol succinate 25 mg 25 mg PO DAILY 02/21/25 03/24/25 tablet,extended release 24 hr spironolactone 25 mg tablet 25 mg PO DAILY 02/21/25 03/24/25 phenobarbital 32.4 mg tablet 64.8 mg PO TID 03/24/25 03/24/25 triamcinolone acetonide 0.5 % 1 applic topical TID 03/24/25 03/24/25 topical cream Previous Rx's ?Medication ?Instructions ?Recorded azithromycin 250 mg tablet 250 mg PO DAILY 3 days #3 tabs 03/27/25 benzonatate 100 mg capsule 100 mg PO TID PRN cough #20 caps 03/27/25 prednisone 20 mg tablet 20 mg PO BID 5 days #10 tabs 03/27/25 tiotropium bromide 18 mcg capsule 1 cap inhalation DAILY 30 days #30 03/27/25 with inhalation device (Spiriva caps with HandiHaler) Allergies Allergy/AdvReac Type Severity Reaction Status Date / Time oxycodone (From OxyContin) Allergy Severe Anaphylaxis Verified 04/04/25 21:44 gabapentin Allergy Unknown Unknown Verified 04/04/25 21:44 Review of Systems ROS Status of ROS 10 or more systems reviewed and unremarkable except as noted in history and below [facility] Medical History Right lower lobe pneumonia ?J18.9 - Pneumonia, unspecified organism (ICD-10) Essential (primary) hypertension ?I10 - Essential (primary) hypertension (ICD-10) Seizure disorder ?G40.909 - Epilepsy, unspecified, not intractable, without status epilepticus (ICD-10) CAD (coronary artery disease) ?I25.10 - Atherosclerotic heart disease of [place] coronary artery without angina pectoris (ICD-10) Cervical vertebral fusion ?M43.22 - Fusion of spine, cervical region (ICD-10) Lipoma of axilla ?D17.20 - Benign lipomatous neoplasm of skin and subcutaneous tissue of unspecified limb (ICD-10) Rupture, tendon, Achilles ?S86.019A - Strain of unspecified Achilles tendon, initial encounter (ICD-10) Syncope ?R55 - Syncope and collapse (ICD-10) Seizure ?R56.9 - Unspecified convulsions (ICD-10) Malignant neoplasm of mediastinum ?C38.3 - Malignant neoplasm of mediastinum, part unspecified (ICD-10) Depression ?F32.A - Depression, unspecified (ICD-10) Dyslipidemia ?E78.5 - Hyperlipidemia, unspecified (ICD-10) Deviated nasal septum ?J34.2 - Deviated nasal septum (ICD-10) Degenerative lumbar spinal stenosis ?M48.061 - Spinal stenosis, lumbar region without neurogenic claudication (ICD-10) 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 - Drug-induced polyneuropathy (ICD-10) ?T45.1X5A - Adverse effect of antineoplastic and immunosuppressive drugs, initial encounter (ICD-10) CAD, multiple vessel ?I25.10 - Atherosclerotic heart disease of [place] coronary artery without angina pectoris (ICD-10) 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 - Malignant neoplasm of mediastinum, part unspecified (ICD-10) Bladder cancer ?C67.9 - Malignant neoplasm of bladder, unspecified (ICD-10) HLD (hyperlipidemia) ?E78.5 - Hyperlipidemia, unspecified (ICD-10) Chest pain ?R07.9 - Chest pain, unspecified (ICD-10) Surgical History History of cataract surgery ?Z98.49 - Cataract extraction status, unspecified eye (ICD-10) History of foot surgery ?Z98.890 - Other specified postprocedural states (ICD-10) History of esophagogastroduodenoscopy (EGD) ?Z98.890 - Other specified postprocedural states (ICD-10) History of colonoscopy ?Z98.890 - Other specified postprocedural states (ICD-10) History of neck surgery ?Z98.890 - Other specified postprocedural states (ICD-10) H/O shoulder surgery ?Z98.890 - Other specified postprocedural states (ICD-10) History of cholecystectomy ?Z90.49 - Acquired absence of other specified parts of digestive tract (ICD-10) Family History Father Family history of myocardial infarction Sister Family history of cancer Other Family history of coronary artery disease Family history of diabetes mellitus Family history of gastric cancer Family history of heart disease Family history of hypertension Family history of kidney cancer Family history of stroke Social History Within the past year, how often did you have a drink containing alcohol: never Score interpretation: A score less than 4 is consistent with normal alcohol consumption. Smoking status: Former smoker Non-prescribed substance use: denies use Previous occupational history: retired Highest level of school completed/degree received: high school graduate Are you now , , , , never or living with a partner: In a typical week, how many times do you talk on the telephone with family, friends, or neighbors: 3 or more times per week How often do you get together with friends or relatives: 3 or more times per week Little interest or pleasure in doing things: not at all Feeling down, depressed, or hopeless: not at all Feel stressed/tense/nervous/anxious/difficulty sleeping: to some extent Life stressors: other Life stressor details: health Gender Identity: male Exam Narrative Exam Narrative: Vital signs and Nursing Notes reviewed: Patient is afebrile with a normal pulse, blood pressure is mildly elevated at 140/70 and he is hypoxic with pulse ox of 92% on 2 L nasal cannula General: Awake, alert, oriented, HEENT: Normocephalic atraumatic, mucous membranes are moist and pink, eyes are clear, normal conjunctiva, vision is grossly intact, Neck: Supple, no meningeal signs, no anterior or posterior cervical lymphadenopathy Chest: Diffusely diminished breath sounds with expiratory wheezing, patient has mild conversational dyspnea, no rhonchi or rales appreciated CVS: Regular rate and rhythm S1-S2, no murmurs rubs or gallops, pulses are brisk and equal bilaterally ABD: Soft, nondistended, nontender, no rebound guarding or rigidity, bowel sounds are normal, no pulsatile masses appreciated Extremities: Moving all extremities, no redness or swelling of the calves are noted but there is 2+ edema of the ankles bilaterally. There is a healed incision on the posterior aspect of the right ankle status post Achilles surgery Skin: Normal in appearance without rash,pallor, petechiae or purpura Neuro: No focal deficits Constitutional Vital Signs, click to edit/add: Last Vital Signs Temp 98.2 F 04/04/25 21:44 Pulse 79 04/04/25 23:30 Resp 19 04/04/25 23:30 BP 118/71 04/04/25 23:30 Pulse Ox 95 04/04/25 23:30 O2 Del Method Nasal Cannula 04/04/25 22:20 O2 Flow Rate 2 04/04/25 23:30 Course Vital Signs Vital signs: Vital Signs Temperature 98.2 F 04/04/25 21:44 Pulse Rate 76 04/04/25 21:44 Respiratory Rate 19 04/04/25 21:44 Blood Pressure 140/70 04/04/25 21:44 Pulse Oximetry 92 L 04/04/25 21:44 Oxygen Delivery Method Nasal Cannula 04/04/25 21:44 Oxygen Delivery Flow Rate 2 04/04/25 21:44 Temperature 98.2 F 04/04/25 21:44 Pulse Rate 79 04/04/25 23:30 Respiratory Rate 19 04/04/25 23:30 Blood Pressure 118/71 04/04/25 23:30 Pulse Oximetry 95 04/04/25 23:30 Oxygen Delivery Method Nasal Cannula 04/04/25 22:20 Oxygen Delivery Flow Rate 2 04/04/25 23:30 MDM - SOB/Dyspnea MDM Narrative Medical decision making narrative: This 70-year-old with a history of COPD and CHF is brought to the emergency department by EMS from home for evaluation of increasing shortness of breath for the past 2 days. Patient was recently seen by his primary care physician and given a prescription for Nebules for a nebulizer machine but he does not have a nebulizer machine. He states he thought he could use the Nebules with his oxygen that he has at home. He is oxygen dependent at home. He denies any chest pain or fever. He was admitted to this facility on March 25. Upon arrival he was noted to be mildly hypoxic with pulse ox of 92% on room air. He had mild expiratory wheezing but no respiratory distress. EKG done upon arrival is a normal sinus rhythm at 78 bpm with no acute changes. He was given IV magnesium and IV Solu-Medrol as well as a DuoNeb treatment. Routine labs are reviewed. He has a normal white count and hemoglobin. Electrolytes are normal. Troponin is normal. BNP is normal. Chest x-ray was read by radiology and shows cardiomegaly with mild central pulmonary vascular congestion with mild atelectasis at the lung bases and hypoinflated lungs without edema or pneumonia, no pleural effusion or pneumothorax was noted. Patient was reevaluated. His pulse ox is improved to 94 to 95% and he is resting comfortably. I offered him admission versus home with medications. He was given a trial of ambulation and feels comfortable being discharged home at this time. He requests a prescription for a nebulizer to use with the medication he recently obtained from his family physician. He was given a prescription for a nebulizer as well as a Medrol Dosepak and albuterol MDI with refills. Differential Diagnosis Differential diagnosis: Likely acute exacerbation of chronic obstructive airways disease, congestive heart failure and community acquired pneumonia Lab Data Attestation: I reviewed the patient's lab results. Labs: Lab Results 04/04/25 Range/Units 22:15 WBC 8.4 (4.0-11.0) 10^3/uL RBC 3.94 L (4.70-6.10) 10^6/uL Hgb 13.3 L (14.0-18.0) g/dL Hct 39.3 L (42.0-54.0) % MCV 99.7 H (80.0-94.0) fL MCH 33.8 (25.9-34.0) pg MCHC 33.8 (29.9-35.2) g/dL RDW 12.7 (11.0-15.0) % Plt Count 172 (150-450) 10^3/uL MPV 10.0 (9.5-13.5) fL Neut % (Auto) 58.8 (43.0-75.0) % Lymph % (Auto) 19.4 L (20.5-60.0) % Grady % (Auto) 8.9 (1.7-12.0) % Eos % (Auto) 11.4 H (0.9-7.0) % Baso % (Auto) 0.8 (0.2-2.0) % Neut # (Auto) 4.9 (1.4-6.5) 10^3/uL Lymph # (Auto) 1.6 (1.2-3.8) 10^3/uL [place]ady # (Auto) 0.8 (0.3-0.8) 10^3/uL Eos # (Auto) 1.0 H (0.0-0.7) 10^3/uL Baso # (Auto) 0.1 (0.0-0.1) 10^3/uL Abs Immat Gran (auto) 0.06 H (0.00-0.03) 10^3/uL Imm/Tot Granulo (auto) 0.7 H (0.0-0.5) % Sodium 138 (136-145) mmol/L Potassium 4.0 (3.5-5.1) mmol/L Chloride 103 (98-107) mmol/L Carbon Dioxide 27.8 (21.0-32.0) mmol/L Anion Gap 11.2 BUN 20.0 H (7.0-18.0) mg/dL Creatinine 1.01 (0.70-1.30) mg/dL Est GFR ( Amer) >60 (>=60 mL/min/1.73m^2) Est GFR (Non-Af Amer) >60 (>=60 mL/min/1.73m^2) BUN/Creatinine Ratio 19.8 Glucose 144 H (74-106) mg/dL Calcium 8.3 L (8.5-10.1) mg/dL Total Bilirubin 0.2 (0.2-1.0) mg/dL AST 22 (15-37) U/L ALT 33 (16-63) U/L Alkaline Phosphatase 138 H (46-116) U/L Troponin I High Sens 5.9 (4.0-76.1) pg/mL NT-Pro-B Natriuret Pep 86.0 (<=900.0) pg/mL Total Protein 7.7 (6.4-8.2) g/dL Albumin 2.9 L (3.4-5.0) g/dL Globulin 4.8 g/dL Albumin/Globulin Ratio 0.6 ECG Data Attestation: I personally reviewed and interpreted this ECG as follows: (Sinus rhythm at 78 bpm, normal axis, normal intervals, no acute ST segment elevation or T wave inversion) Discharge Plan Discharge Chief Complaint: Shortness of Breath/Dyspnea Clinical Impression: COPD (chronic obstructive pulmonary disease) Patient Disposition: Home, Self-Care Time of Disposition Decision: 23:41 Condition: Good Prescriptions / Home Meds: No Action furosemide 40 mg tablet 40 mg PO DAILY PRN (Reason: edema) nitroglycerin 0.3 mg tablet, sublingual 0.3 mg sublingual Q5M PRN (Reason: chest pain) psyllium husk [Daily Fiber] 0.4 gram capsule 0.4 g PO DAILY aspirin [Adult Low Dose Aspirin] 81 mg tablet,delayed release (DR/EC) 81 mg PO DAILY triamcinolone acetonide 0.5 % cream 1 applic TOPICAL TID phenobarbital 32.4 mg tablet 64.8 mg PO TID prednisone 20 mg tablet 20 mg PO BID 5 Days Qty: 10 0RF azithromycin 250 mg tablet 250 mg PO DAILY 3 Days Qty: 3 0RF benzonatate 100 mg capsule 100 mg PO TID PRN (Reason: cough) Qty: 20 0RF tiotropium bromide [Spiriva with HandiHaler] 18 mcg capsule, w/inhalation device 1 cap inhalation DAILY 30 Days Qty: 30 0RF Rx Instructions: puncture 1 cap using device; one dose = 2 inhalations atorvastatin 10 mg tablet 10 mg PO .hs citalopram 40 mg tablet 40 mg PO DAILY phenytoin sodium extended 100 mg capsule 200 mg PO TID spironolactone 25 mg tablet 25 mg PO DAILY metoprolol succinate 25 mg tablet extended release 24 hr 25 mg PO DAILY albuterol sulfate 90 mcg/actuation HFA aerosol inhaler 2 inh INHALATION Q4H PRN (Reason: shortness of breath or wheezing) fluticasone propionate 50 mcg/actuation spray,suspension 2 spray INTRANASAL DAILY Print Language: Cuban Instructions: COPD (Chronic Obstructive Pulmonary Disease) (ED), Chronic Lung Disease and Infection Prevention (ED) Referrals: Jignesh Manjarrez MD [Primary Care Provider, Family Practice] - 1 week
[2025-04-04] MEDS: IPRATROPIUM/ALBUTEROL SULFATE 3 ML AMPUL.NEB IH (22:18)
[2025-04-04 22:24] LABS: Basophils Absolute Auto 0.1 10^3/uL (0.0-0.1); Basophils Percent Auto 0.8 % (0.2-2.0); Eosinophils Percent Auto 11.4 % (0.9-7.0); Hematocrit 39.3 % (42.0-54.0); Hemoglobin 13.3 g/dL (14.0-18.0); Immature Granulocytes Abs Auto 0.06 10^3/uL (0.00-0.03); Immature Granulocytes Pct Auto 0.7 % (0.0-0.5); Lymphocytes Absolute Auto 1.6 10^3/uL (1.2-3.8); Lymphocytes Percent Auto 19.4 % (20.5-60.0); Mean Corpuscular HGB Conc 33.8 g/dL (29.9-35.2); Mean Corpuscular Hemoglobin 33.8 pg (25.9-34.0); Mean Corpuscular Volume 99.7 fL (80.0-94.0); Monocytes Absolute Auto 0.8 10^3/uL (0.3-0.8); Monocytes Percent Auto 8.9 % (1.7-12.0); Neutrophils Absolute Auto 4.9 10^3/uL (1.4-6.5); Neutrophils Percent Auto 58.8 % (43.0-75.0); Platelet Count 172 10^3/uL (150-450); Red Blood Count 3.94 10^6/uL (4.70-6.10); Red Cell Distribution Width 12.7 % (11.0-15.0); White Blood Count 8.4 10^3/uL (4.0-11.0)
[2025-04-04] MEDS: METHYLPREDNISOLONE SOD SUCC PF 125 MG/2 ML VIAL IVP (22:27)
[2025-04-04] MEDS: MAGNESIUM SULFATE IN WATER 2 GM/50 ML PREMIX IV (22:27)
[2025-04-04 22:39] LABS: Anion Gap 11.2
[2025-04-04 22:45] LABS: Alanine Aminotransferase 33 U/L (16-63); Albumin Globulin Ratio 0.6; Albumin Level 2.9 g/dL (3.4-5.0); Alkaline Phosphatase 138 U/L (46-116); Aspartate Amino Transferase 22 U/L (15-37); BUN Creatinine Ratio 19.8; Bilirubin Total 0.2 mg/dL (0.2-1.0); Calcium 8.3 mg/dL (8.5-10.1); Carbon Dioxide 27.8 mmol/L (21.0-32.0); Chloride 103 mmol/L (98-107); Estimated GFR (African America >60 (>=60 mL/min/1.73m^2); Estimated GFR (Non-African Ame >60 (>=60 mL/min/1.73m^2); Globulin 4.8 g/dL; Glucose 144 mg/dL (74-106); Sodium 138 mmol/L (136-145); Total Protein 7.7 g/dL (6.4-8.2); Troponin I High Sensitivity 5.9 pg/mL (4.0-76.1)
--- NOTE | 2025-04-05 | PC.NURSE ---
i gave this patient verbal and written discharge orders along with 3 Rx and this patient voices yes to understanding these. at time of discharge this patient voices no concerns and shows no signs of distress
== END 2025-04-05 00:01 | disposition home or self-care (01) ==
PROVIDERS: Emergency Provider Emergency Medicine; PCP Family Medicine
DX: J44.9 Chronic obstructive pulmonary disease, unspecified (principal); R06.02 Shortness of breath; I50.9 Heart failure, unspecified; Z99.81 Dependence on supplemental oxygen; Z90.49 Acquired absence of other specified parts of digestive tract
CPT/HCPCS: 36415; 71045; 80053; 83880; 84484; 85025; 93005; 94640; 96365; 96375; 99285; J2919; J3475

== ENCOUNTER 2025-04-14 20:17 | Emergency (ER) | payer MEDICARE, MEDICAID, SELFPAY ==
--- OUTSIDE RECORDS SUMMARY | 2025-04-02 12:01 | XMS_ITS ---
Author Name Auto Generated Organization OHIP Support Name Relationship Address Phone SA SOPHIAUNDRA Next of Kin [address] [place] [address] + PHILIPPE CORTES Next of Kin [address] [place] [address] + SOPHIA PHILIPPE Next of Kin [address] [place] [address] + SETH CORTES Next of Kin Unknown [phone] SOPHIA V, NAZARIO Next of Kin Unknown [phone] MITALI CORTESRA Next of Kin [address] [place] [address] + SETH CORTES Next of Kin Unknown [phone] SOPHIA V, NAZARIO Next of Kin Unknown [phone] DESMOND CORTESRA Next of Kin Unknown [phone] SOPHIA V, NAZARIO Next of Kin Unknown [phone] SOPHIA SETH Next of Kin Unknown [phone] SOPHIA V, NAZARIO Next of Kin Unknown [phone] SOPHIA SETH Next of Kin Unknown [phone] SOPHIA V, NAZARIO Next of Kin Unknown [phone] SOPHIA PHILIPPE Next of Kin [address] [place] [address] + SOPHIA PHILIPPE Next of Kin [address] [place] [address] + SOPHIA, PHILIPPE Next of Kin [address] [place] [address] + SOPHIA, PHILIPPE Next of Kin [address] [place] [address] + SOPHIA, PHILIPPE Next of Kin [address] [place] [address] + Sophia, Philippe Next of Kin [address] [place] [address] + [place] [address] [phone] Sophia, Philippe Next of Kin [address] [place] [address] + [place] [address] [phone] SOPHIA, SETH Next of Kin Unknown [phone] SOPHIA, CHALES Next of Kin Unknown [phone] SOPHIA, SETH Next of Kin Unknown [phone] SOPHIA, CHALES Next of Kin Unknown [phone] SOPHIA, PHILIPPE Next of Kin [address] [place] [address] + SOPHIA, PHILIPPE Next of Kin [address] [place] [address] + SOPHIA, PHILIPPE Next of Kin [address] [place] [address] + SOPHIA, PHILIPPE Next of Kin [address] [place] [address] + Sophia, Philippe Next of Kin [address] [place] [address] + [place] [address] +[phone] SOPHIA, PHILIPPE Next of Kin [address] [facility] [address] [place] [phone] + Care Team Providers Care Truant Officer Name Role Phone CORNELIO COTTER Attending Unavailable AMRIK PÉREZ Attending Unavailable JIGNESH GONSALEZ Referring Unavailable NADERER, JIGNESH Attending Unavailable DANE, DRE Means Attending Unavailable NADERER, JIGNESH Attending Unavailable NADERER, JIGNESH Attending Unavailable JAY, IMELDA Mtz Attending Unavailable NADERER, JIGNESH Attending Unavailable JAY, IMELDA Mtz Attending Unavailable JAY, IMELDA Mtz Referring Unavailable NADERER, JIGNESH Attending Unavailable DANE, DRE Means Attending Unavailable NADERER, JIGNESH Attending Unavailable JOSE M REA Attending Unavailable NADEREChata, JIGNESH Referring Unavailable CHATOJONY Referring Unavailable WILLIAMDARRELL STRANGE Referring Unavailable OVITT, CORNELIO Referring Unavailable MOUKARBELCOLE Referring Unavailable SAPPHIRE, SOPHIE Admitting Unavailable LIBERTAD CHIN Attending Unavailable JADITT, CORNELIO Attending Unavailable ELARNAUD HAGEN Attending Unavailable WILLIAM, DARRELL Referring Unavailable Joslyn Garcia Admitting Unavailable Joslyn Garcia Attending Unavailable Jignesh Gonsalez Primary Care Unavailable Joslyn Garcia Admitting Unavailable Joslyn Garcia Attending Unavailable Jignesh Gonsalez Primary Care Unavailable Yancy Lawson Admitting Unavailable Yancy Lawson Attending Unavailable Jignesh Gonsalez Primary Care Unavailable PROBLEMS DATE TYPE CONDITION / CODE ATTENDING STATUS [facility] 01/05/2024 Admitting Diagnosis Other forms of dyspnea / R06.09(ICD-10) [facility] 01/22/2025 Admitting Diagnosis Atherosclerotic heart disease of [place] coronary artery without angina pectoris / I25.10(ICD-10) [facility] 01/22/2025 Admitting Diagnosis Essential (primary) hypertension / I10(ICD-10) [facility] 01/11/2025 Admitting Diagnosis Unstable angina / I20.0(ICD-10) LIBERTAD CHIN [facility] 09/07/2024 Unknown Pain in right kn ee / M25.561(ICD-10) Joslyn Garcia [facility] 08/08/2024 Admitting Diagnosis Spondylosis without myelopathy or radiculopathy, lumbar region / M47.816(ICD-10) [facility] 08/08/2024 Admitting Diagnosis Lumbago with sciatica, right side / M54.41(ICD-10) [facility] 08/08/2024 Admitting Diagnosis Other chronic pain / G89.29(ICD-10) [facility] 08/08/2024 Admitting Diagnosis Lumbago with sciatica, left side / M54.42(ICD-10) [facility] 08/08/2024 Admitting Diagnosis Foot drop, left foot / M21.372(ICD-10) [facility] 08/08/2024 Admitting Diagnosis Repeated falls / R29.6(ICD-10) [facility] 08/08/2024 Admitting Diagnosis Radiculopathy, lumbar region / M54.16(ICD-10) [facility] 07/26/2024 Admitting Diagnosis Spinal stenosis, cervical region / M48.02(ICD-10) [facility] 05/15/2024 Unknown Pain in left elb ow / M25.522(ICD-10) Joslyn Garcia [facility] PROCEDURES No Procedure Records Found RESULTS PROGRESS Observed: 01/22/2025 2:00 PM Status: COMPLETED Source: [facility] Cardiology Clinic Note Chief Complaint: Patient here for follow up [facility]. Underwent heart cath on 01/11/[address] William. Only taking potassium about every other day, [...] a past medical history of Bladder cancer ([facility]), Cholelithiasis, Colon polyp, Depression, Dyslipidemia, Hearing loss, Left foot drop, Peripheral neuropathy, Seizure disorder (CMS/[facility]), and TIA (transient ischemic attack). Surgical History [...] needed each day., Disp: , Rfl: HYDROcodone-acetaminophen (Minetto) 5-325 mg tablet, take 1 tablet by [...] or chew., Disp: 30 tablet, Rfl: 0 wvtfogzqqtiz-rpib-gupbrlvp-folic acid (Multivitamin 50 Plus) tablet, 1 (one) [...] PSYCH: appropriate mood, affect, and judgement. INVESTIGATIONS: Echocardiogram-[facility] Name: NAZARIO CORTES Study Date: 01/11/2025 10:06 AM B/P: 142 mmHg/84 mmHg HR: Date of : 1955 Location: [facility] Height: 74 in. Age: 69 year(s) Patient Room : 3140 Weight: 306 lb. Gender: Male Patient Status: InPt BSA: 2.6 m2 Indication: Unstable angina pectoris Examination: Echocardiogram (Complete), Lumason Contrast Image Quality: Technically Difficult study Patient Consent: Procedure explained to patient s p @ c 3 Conclusions Left Ventricle: The left ventricle is [...] opacification and better delineation of endocardial borders. Cardiovascular Laboratory Report 01/11/2025 FINAL IMPRESSIONS: Moderate, heavily calcified three-vessel coronary [...] coronary angiography via a left radial approach Assessment: Chest pain likely secondary to hypertension Coronary artery disease; - Cath on 01/11/2025 revealed moderate, heavily calcified three-vessel coronary artery disease, normal global left ventricular systolic function Probable heart failure with preserved ejection fraction Hypertension History of seizures Plan: Continue optimal medical therapy for coronary artery disease including aspirin, moderate intensity statin therapy; will increase his Lipitor to 40 mg a day, a beta-daisy and an angiotensin receptor daisy He is on Imdur 30 mg a day we will continue this His PCP Dr Gonsalez will start him on inhalers. He is also checking labs. Given history of hypertension, and shortness of breath, will consider treatment for for HFpEF; Farxiga or Jardiance depending on which is covered by his insurance if inhalers do not improve his SOB Consider noncardiac etiologies for the symptoms namely pulmonary, musculoskeletal, and/or gastrointestinal Return to clinic in 4-6 months or sooner should problems arise Arnaud William MD, MPH, FACC, [facility], [facility] Interventional Cardiology Pager Email: [email or web address] OFFICE VISIT Observed: 01/22/2025 2:00 PM Status: COMPLETED Source: [facility] [id number] Nazario Cortes Jr. 1955 M Date Provider Department Center 01/22/2025 271-ARNAUD WILLIAM CARD [facility] Family History Problem Relation Age of Onset Supraventricular tachycardia Mother Stroke Father Kidney cancer Sister Diabetes Sister COPD Brother Family Status - Relation Status Age at Mother Father Sister Brother Level of Service:28155 MT OFFICE/OUTPATIENT ESTABLISHED LOW MDM 20 MIN NURSNOTE Observed: 01/13/2025 2:39 PM Status: COMPLETED Source: [facility] Pt discharged with all belon gings, discharge paperwork, and questions answered to pt's satisfaction. PROGRESS Observed: 01/13/2025 12:03 PM Status: COMPLETED Source: [facility] Sent the AVS to [facility]. PROGRESS Observed: 01/13/2025 9:41 AM Status: COMPLETED Source: [facility] Physical Therapy Physical Therapy Evaluation Patient Name: [...] year old male present as transfer from [facility] for chest pain. On 01/11/25, pt [...] Level of Function Prior Function Level of [place]: Independent with ADLs and functional transfers, Independent [...] sit Level of Assistance 1: Independent Bed Mobility Comments 1: with HOB elevated Transfers Transfer: Yes Transfer 1 Transfer From 1: Bed Transfer Type 1: To Transfer to 1: Stand Technique 1: Sit to stand Transfer Device 1: rolling walker Transfer Level of Assistance 1: Distant supervision Transfers 2 Transfer From 2: Stand Transfer Type 2: To Transfer to 2: Chair with arms Technique 2: Stand to sit Transfer Device 2: rolling walker Transfer Level of Assistance 2: Distant supervision Ambulation Ambulation: Yes Ambulation 1 Surface 1: Level tile Device 1: Rolling walker Assistance 1: Contact guard Quality of Gait 1: Foot drop of RLE, reduced gait speed, decreased step height and length B, forward flexed posturing. Comments/Distance (ft) 1: 125 ft, during turn, pt demonstrated LOB which he was able to self correct through BUE on RW. Extremity Assessments RLE Assessment RLE Assessment: Exceptions to WFL Strength RLE R Hip Flexion: 4+/5 R Hip ABduction: 4/5 R Knee Flexion: 5/5 R Knee Extension: 5/5 LLE Assessment LLE Assessment: Exceptions to WFL Strength LLE L Hip Flexion: 4/5 L Hip Extension: 4/5 L Knee Flexion: 5/5 L Knee Extension: 5/5 Outcome Assessments 6 Clicks (Mobility) Help from another person turning from your back to your side while in a flat bed without using bedrails: None Help from another person moving from lying on your back to sitting on the side of a flat bed without using bedrails: None Help from another person moving to and from a bed to a chair (including a wheelchair): A little Help from another person standing up from a chair using your arms (e.g. wheelchair or bedside chair): A little Help from another person to walk in hospital room: A little Help from another person climbing 3-5 steps with a railing: A lot Mobility 6 Clicks T-Score: 19 Prater Balance Scale 1. Sitting to Standing: Able to stand independently using hands 2. Standing Unsupported: Able to stand 2 minutes with supervision 3. Sitting with Back Unsupported but Feet Supported on Floor or on a Stool: Able to sit safely and securely for 2 minutes 4. Standing to Sitting: Controls descent by using hands 5. Transfers: Able to transfer safely definite need of hands 6. Standing Unsupported with Eyes Closed: Able to stand 10 seconds with supervision 7. Standing Unsupported with Feet Together: Needs help to attain position and unable to hold for 15 seconds 8. Reach Forward with Outstretched Arm While Standing: Reaches forward but needs supervision 9. Director Of Optimization Object from Floor from a Standing Position: Unable to try/needs assist to keep from losing balance or falling 10. Turning to Look Behind Over Left and Right Shoulders While Standing: Needs supervision when turning 11. Turn 360 Degrees: Needs assistance while turning 12. Place Alternate Foot on Step or Stool While Standing Unsupported: Needs assistance to keep from falling/unable to try 13. Standing Unsupported One Foot in Front: Needs help to step but can hold 15 seconds 14. Standing on One Leg: Unable to try needs assist to prevent fall Prater Balance Score: 22 Norms/Cut-Offs Older Adults: Score of 56/56 indicates functional balance. Score of <45/56 indicates patient may be at risk of falling. Score of <40/56 associated with almost 100% fall risk. Ages 60-69 (Male): Average 55/56 Assessment/Plan PT Assessment Impairments: Decreased strength, Decreased endurance, Impaired balance, Decreased mobility, Impaired sensation PT Assessment: Mr. Nazario Cortes Jr. presents to [facility] for chest pain. Upon PT examination, the pt displays reduced balance ability based on decreased score on the BBS which places him at a higher risk for falls. In addition, he requires SBA to CGA to complete mobility tasks indicating reduced mobility skills. Nazario will benefit from skilled PT services in order to reduce risk for falls and improve mobility. Pt is safe to be discharged home where he can utilize his RW and PWC for mobility needs, but he would benefit from home therapy to continue to improve his strength, mobility, and balance. Prognosis: Fair Medical Staff Made Aware: Yes Strengths: Ability to acquire knowledge, Access to adaptive/assistive products, Housing layout, Premorbid level of function, Capable of completing ADLs semi/independent, Support and attitude of living partners, Living arrangement secure Barriers to Discharge: Comorbidities, Leisure activity, Rehab experience Plan Level of assist: 1 assist Treatment/Interventions: Functional transfer training, Bed mobility, Gait training, LE strengthening/ROM, Endurance training, Balance training PT Plan: Skilled PT PT Frequency: 3 times per week PT Discharge Recommendations: Home PT PT - Discharge Recommendations Placed: Yes *At end of session, pt was seated in recliner with call light within reach.* PT Goals Multi-Disciplinary Problems (from Physical Therapy) Active Problems Problem: PT Misc Start Date: 01/13/25 Goal Start Date Expected End Date End Date STG - Patient will ambulate at least 200 ft with mod I with RW for ease with ambulating at home. 01/13/25 01/20/25 -- Goal Start Date Expected End Date End Date STG - Patient will perform bed mobility with HOB flat with independence for ease with getting out of bed. 01/13/25 01/20/25 -- Goal Start Date Expected End Date End Date LTG - Patient will score at least a 40/56 on the BBS in order to reduce his risk for falls. 01/13/25 02/10/25 -- Goal Start Date Expected End Date End Date LTG - Patient will ambulate at least 300 ft with mod I with RW for ease with getting to doctors appointments. 01/13/25 02/10/25 -- Goal Start Date Expected End Date End Date LTG - Patient will perform transfers with mod I with RW for ease with getting up from chairs. 01/13/25 02/10/25 -- PROGRESS Observed: 01/13/2025 9:06 AM Status: COMPLETED Source: [facility] home healthcare has accepted. DS Observed: 01/13/2025 9:06 AM Status: COMPLETED Source: [facility] Hospital Medicine Discharge Summary Final Discharge Diagnosis: Unstable angina KAROL History of seizures Hyperlipidemia Falls at home Obese class 2 - BMI 40 Admission Diagnosis: Unstable angina (CMS/HCC) [I20.0] Hospital course: Nazario Cortes is an 69 y.o. male who came from [facility] with Angina pectoris unstable. Patient is a 69-year-old male with the following past medical history CAD, HLD, depression, history of seizures, obstructive sleep apnea, obesity, history of bladder cancer diagnosed 2018 with tumor removal. Patient was transferred from [facility] where he has been admitted on being managed for chest pain. He was seen by cardiology and after consultation patient was transferred to [facility] for cardiac catheterization tomorrow. He states that [...] consulted. WE will arrange home health through [facility]. Surgical, Invasive or Diagnostic Procedures Done [...] left radial artery was obtained. A 6 Arabic glide sheath was inserted without difficulty. Bilateral [...] angina Consultations During Admission: Cardiology Dear Dr. Loki MD, Nazario is advised to follow up [...] tablet Commonly known as: Toprol-XL Take 1 tablet (50 mg) by mouth in the morning for 120 doses. Do not crush or chew. CONTINUE taking these medications Instructions Last Dose Given Next Dose Due aspirin 81 mg EC tablet atorvastatin 10 mg tablet Commonly known as: Lipitor citalopram 40 mg tablet Commonly known as: CeleXA furosemide 40 mg tablet Commonly known as: Lasix HYDROcodone-acetaminophen 5-325 mg tablet Commonly known as: Minetto meclizine 25 mg tablet Commonly known as: Antivert methocarbamol 750 mg tablet Commonly known as: Robaxin Multivitamin 50 Plus tablet Generic drug: flvaymfwqjsv-xtbc-ayfaruad-folic acid nitroglycerin 0.3 mg SL tablet Commonly known as: Nitrostat PHENobarbital 32.4 mg tablet Commonly known as: Luminal phenytoin ER 100 mg capsule Commonly known as: Dilantin potassium chloride CR 20 mEq ER tablet Commonly known as: K-Tab Where to Get Your Medications These medications were sent to [id number] - [place], [place] - [address] [facility] [address] [place] [address] isosorbide mononitrate ER 30 mg 24 hr tablet losartan 25 mg tablet metoprolol succinate XL 50 mg 24 hr tablet Nazario is allergic to oxycodone and gabapentin. Disposition: Home-Health Care [facility] (06) Discharge Condition: Good Code Status: Full Code Diagnostic Results Hematology: Results from last 7 days Lab Units 01/12/25 0331 01/11/25 1155 01/11/25 0323 WBC AUTO 10*3/uL 8.31 -- 8.63 HEMOGLOBIN g/dL 13.4 -- 13.0 HEMATOCRIT % 41.0 -- 39.8 MCV fL 100.2* -- 102.1* PLATELETS AUTO 10*3/uL 197 177 187 Chemistry: Results from last 7 days Lab Units 01/13/25 0508 01/12/25 0331 01/11/25 0323 SODIUM mmol/L 135* 133* 134* POTASSIUM mmol/L 4.2 4.2 4.1 CHLORIDE mmol/L 104 101 103 CO2 mmol/L 24 26 26 BUN mg/dL 23 20 18 CREATININE mg/dL 0.81 0.79 0.81 GLUCOSE mg/dL 114* 114* 105* MAGNESIUM mg/dL -- 1.9 -- CALCIUM mg/dL 8.8 8.4* 8.3* Results from last 7 days Lab Units 01/12/25 0331 AST U/L 25 ALT U/L 20 ALK PHOS U/L 152* BILIRUBIN TOTAL mg/dL 0.5 BILIRUBIN DIRECT mg/dL 0.1 Test Results Pending At Discharge: Diet at the time of discharge: cardiac diet Activity: Normal activity as tolerated Objective Blood pressure 109/61, pulse 69, temperature 36.1 ???C (97 ???F), temperature source Temporal, resp. rate 18, height 1.854 m (6' 1 ), weight 135 kg (298 lb), SpO2 92%. General: Alert and oriented x3. Cardiology: Normal rate, regular rhythm. Lungs: Clear to auscultation, no wheezes, rales or rhonchi, symmetric air entry. Abdomen: Soft, non tender, non distended. Echo Conclusions Left Ventricle: The left ventricle is [...] opacification and better delineation of endocardial borders. CXR XR chest 1 view [[id number]] Collected: 01/12/25 1057 Order Status: Completed Updated: 01/12/25 1059 Narrative: XR CHEST 1 VIEW 01/12/2025 10:20 AM CLINICAL INDICATIONS: Shortness of breath. COMPARISON: 11/20/2020 FINDINGS: Interval surgical clips in the right perihilar region stable. Hardware in the cervical spine. Fibrosis and scarring the right pleural and diaphragmatic surface costophrenic angle region. Air trapping in both lungs with COPD upper lobe emphysema. Congestion of the lung conley may be chronic or may be due to early overload. Impression: COPD with possible early overload. Background of previous surgery and scarring. Electronically signed: Hernandez Hale MD. Total time for discharge - review of data, exam, discussion with providers and care-team, med-rec and orders, arranging follow up, counseling of patient and/or family and documentation was 40 minutes. Signed Libertad Chin, [facility] Medicine 01/13/2025 9:06 AM CC: MD Loki BASIC METABOLIC PANEL Collected: 2024 5:08 AM Status: UNK Source: [facility] TYPE CODE TESTS RESULT OUT OF RANGE REFERENCE UNITS LAB [id number] SODIUM (MMOL/L) IN SER/PLAS 135 Low 136-145 mmol/L LAB [id number] POTASSIUM (MMOL/L) IN SER/PLAS 4.2 3.5-5.1 mmol/L LAB [id number] CHLORIDE (MMOL/L) IN SER/PLAS 104 98-107 mmol/L LAB [id number] CARBON DIOXIDE, TOTAL (MMOL/L) IN SER/PLAS 24 21-31 mmol/L LAB [id number] UREA NITROGEN (MG/DL) IN SER/PLAS 23 7-25 mg/dL LAB [id number] CREATININE (MG/DL) IN SER/PLAS 0.81 0.70-1.30 mg/dL LAB [id number] GLUCOSE (MG/DL) IN SER/PLAS 114 High 70-100 mg/dL LAB [id number] CALCIUM (MG/DL) IN SER/PLAS 8.8 8.6-10.3 mg/dL LAB [id number] ANION GAP IN SER/PLAS 11 7-20 mmol/L LAB [id number] GLOMERULAR FILTRATION RATE ML/MIN/1.73 SQ M.PREDICTED 95.4 >60.0 mL/min/ 1.73m*2 Result Comment: [facility]???s estimated glomerular filtration rate (eGFR) will [...] disproportionately affect any one group of individuals. LAB [id number] UREA NITROGEN/CREA TININE (MASS RATIO) IN SER/PLAS 28.4 NA Performed By: #### LAB15 ### # [facility] ([facility]) [address] [place] [address] VITAMIN B12 Collected: 5:08 AM Status: UNK Source: [facility] TYPE CODE TESTS RESULT OUT OF RANGE REFERENCE UNITS LAB [id number] COBALAMIN (VITAMIN B12) (PG/ML) IN SER/PLAS 353 180-914 pg/mL Result Comment: REFERENCE RA NGES: 180-914 pg/mL Normal 145-179 pg/mL Indeterminate <145 pg/mL Deficient Performed By: #### [id number] ### # [facility] ([facility]) [address] [place] [address] FOLATE Collected: 01/13/2025 5:08 AM Status: UN K Source: [facility] TYPE CODE TESTS RESULT OUT OF RANGE REFERENCE UNITS LAB [id number] FOLATE (NG/ML) IN SER/PLAS 20.54 6.6-1000 ng/mL Performed By: #### LAB69 ### # [facility] ([facility]) [address] [place] [address] 30 Observed: 01/12/2025 10:45 PM Status: COMPLETED Source: [facility] The patient is Moderately St able - Low risk of patient condition declining [...] and behaviors that affect risk of falls [place] fall precautions as indicated by assessment Educate [...] exacerbated and prevent overall improvement and discharge PROGRESS Observed: 01/12/2025 12:37 PM Status: COMPLETED Source: [facility] Attestation signed by Jony Webber MD at [...] the follow-up visit Jony Webber MD, [facility] Cardiology Progress Note Subjective Subjective: Patient [...] 117/59 -- -- 76 21 93 % 01/11/251999 141/81 -- -- 69 23 (!) 89 [...] Value Ventricular Rate 70 Atrial Rate 70 MT Interval 210 QRS DURATION 78 QT Interval 410 QTC CALCULATION(BAZETT) 442 P Kuna 35 R-Kuna -9 T Wave Kuna 36 Impression Sinus rhythm with 1st degree A-V block Otherwise normal ECG When compared with ECG of 20-NOV-2020 10:48, MT interval has increased Confirmed by Thomas YOUNGER, MILAGROS Garcia (57) on 01/11/2025 1:02:38 PM Lab Results Component Value Date TROPONINI 0.01 01/11/2025 Transthoracic echo (TTE) complete Result Date: 01/11/2025 1 1 [facility] Heart Station [address] [place] [address] [phone] (fax) Echocardiogram-[facility] Name: NAZARIO CORTES Study Date: 01/11/2025 10:06 AM B/P: 142 mmHg/84 mmHg HR: Date of : 1955 Location: [facility] Height: 74 in. Age: 69 year(s) Patient [...] Value Normal Value LVOT PGmax 3 mmHg LVEF visual 65 % LVDd, 2D 4.99 cm (4.2cm - 5.9cm) LVDs, 2D 3.94 cm (2.1cm - 4cm) IVSd, 2D 0.98 cm (0.6cm - 1.1cm) LVPWd, 2D 1.49 cm (0.6cm - 1cm) LV Mass, 2D ASE 242.64 g LV Mass Index, 2D ASE 93.3 g/m?? (50g/m?? - 102.4g/m??) RWT, MM 0.6 (0 - 0.42) LVSVI, 2D 19.2 ml/m2 Right Ventricle Label Value Normal Value TAPSE 2.08 cm Left Atrium Label Value Normal Value LA Volume, BP 63 ml (18ml - 58ml) LAESV index, BP 24.2 ml/m?? Aortic Valve Label Value Normal Value AV DVI 0.85 Mitral Valve Label Value Normal Value MV E Vmax 0.68 m/s MV A Vmax 0.86 m/s MV E/A 0.79 MV E/E' lateral 9.3 MV E' lateral 0.07 m/s Aorta Label Value Normal Value AoRoot, 2D 3.5 cm (1.4cm - 3.8cm) Valvular Assessment LVOT 0.7 - 1.1 m/sec Aortic Valve 1.0 - 1.7 m/sec Mitral Valve 0.6 - 1.3 m/sec Tricuspid Valve 0.3 - 0.7 m/sec Pulmonic Valve 0.6 - 0.9 m/sec Regurgitation No No No No Stenosis No No Max Velocity 0.86 m/sec 1.01 m/s 0.68 m/sec 0.91 m/s Max Gradient 4.00 mmHg 3.00 mmHg Findings Left Ventricle: The left ventricle is normal [...] The left atrium is normal in size. Right Atrium: The right atrium appears normal in size. Mitral Valve: The mitral valve is normal in mobility and thickness. No mitral regurgitation. Aortic Valve: Aortic valve appears normal. No aortic valve regurgitation. No aortic valve stenosis. Tricuspid Valve: Normal tricuspid valve. No tricuspid regurgitation. Pulmonic Valve: Pulmonary valve appears normal. No pulmonary regurgitation. No pulmonic valve stenosis. Aorta: The aortic root exhibits normal size. Great Vessels: IVC: The inferior vena cava is poorly visualized. Pericardium: Anterior free space is seen; effusion versus fat pad. Procedure Staff Reading Group: [facility] [employer] Sales Associate: Sarahy Walker RDCS Ordering Physician: DARRELL SINCLAIR No nuclear medicine results found for the past 12 months Relevant Imaging Results XR chest 1 view Narrative: XR CHEST 1 VIEW 01/12/2025 10:20 AM CLINICAL INDICATIONS: Shortness of breath. COMPARISON: 11/20/2020 FINDINGS: Interval surgical clips in the right perihilar region stable. Hardware in the cervical spine. Fibrosis and scarring the right pleural and diaphragmatic surface costophrenic angle region. Air trapping in both lungs with COPD upper lobe emphysema. Congestion of the lung conley may be chronic or may be due to early overload. Impression: COPD with possible early overload. Background of previous surgery and scarring. Electronically signed: Hernandez Hale MD. Assessment Assessment: Chest pain likely secondary to hypertension Coronary artery disease - Cath on 01/11/2025 revealed moderate, heavily calcified three-vessel coronary artery disease, normal global left ventricular systolic function, and moderate to severe systemic hypertension Hypertension History of seizures Plan: Chest X-ray shows evidence of COPD which is likely cause of patient's shortness of breath. BNP 34 There is slight congestion, continue lasix 40 mg once daily Increase Lipitor to 40 mg. LFTs normal. Follow up lipid profile Increase Toprol to 50 mg once daily Continue Losartan Start Imdur 30 mg once daily for chest pain Monitor telemetry Rest of medical management per primary team OK for discharge from cardiology stand point. Thank you for the consult. Signed, Darwin Acosta MD Internal Medicine PGY-2 [facility] PROGRESS Observed: 01/12/2025 11:29 AM Status: COMPLETED Source: [facility] Medicine Daily Progress Note - 01/12/2025 11:29 AM; Room: [address] [place] [address] Admission: 01/11/2025 12:29 AM; Length of stay: 1 days THE HOSPITALIST TEAM PREFERS TO USE [employer] CHAT FOR NON-URGENT COMMUNICATION 7AM-7PM. IF I DO NOT RESPOND WITHIN 20 MINUTES OR URGENT MATTERS, PLEASE CALL THROUGH THE REPRODUCTION ARTIST. FROM 7PM-7AM, PLEASE PAGE [phone](COVR). Code Status: Full Code Barriers to Discharge: chest pain Expected Discharge Date: tomorrow? Discharge Destination: home Overview Nazario Cortes is an 69 y.o. male who came from [facility] with Angina pectoris unstable. Patient is a 69-year-old male with the following past medical history CAD, HLD, depression, history of seizures, obstructive sleep apnea, obesity, history of bladder cancer diagnosed 2018 with tumor removal. Patient was transferred from [facility] where he has been admitted on being managed for chest pain. He was seen by cardiology and after consultation patient was transferred to [facility] for cardiac catheterization tomorrow. He states that [...] LDL 97 01/12/2025 No results found for: [id number] , IRON , TIBC , C3 , C4 , BRI , CANCA , ASO , PSA , CEA , CA125 , CA199 , AFP , CA153 Imaging XR chest 1 view Narrative: XR CHEST 1 VIEW 01/12/2025 10:20 AM CLINICAL INDICATIONS: Shortness of breath. COMPARISON: 11/20/2020 FINDINGS: Interval surgical clips in the right perihilar region stable. Hardware in the cervical spine. Fibrosis and scarring the right pleural and diaphragmatic surface costophrenic angle region. Air trapping in both lungs with COPD upper lobe emphysema. Congestion of the lung conley may be chronic or may be due to early overload. Impression: COPD with possible early overload. Background of previous surgery and scarring. Electronically signed: Hernandez Hale MD. Discharge Planning Expected Discharge Disposition: Home-Health Care [facility] (06) Signed Libertad Chin [facility] 01/12/2025 11:29 AM 30 Observed: 01/12/2025 6:13 AM Status: COMPLETED Source: [facility] The patient is Moderately St able - Low risk of patient condition declining or worsening The patient's goals for the shift include comfort, rest The clinical goals for the shift include vss, safety HEMOGLOBIN A1C Collected: 01/12/2025 3:31 AM Status: UNK Source: [facility] TYPE CODE TESTS RESULT OUT OF RANGE REFERENCE UNITS LAB [id number] HEMOGLOBIN A1C/HEMOGLOBIN TOTAL IN BLOOD 5.4 4.0-6.0 % LAB 294 ESTIMATED AVERAGE GLUCOSE (MG/DL) IN BLOOD 108 mg/dL Performed By: #### [id number] ### # [facility] ([facility]) [address] [place] [address] BASIC METABOLIC PANEL Collected: 2024 3:31 AM Status: UNK Source: [facility] TYPE CODE TESTS RESULT OUT OF RANGE REFERENCE UNITS LAB [id number] SODIUM (MMOL/L) IN SER/PLAS 133 Low 136-145 mmol/L LAB [id number] POTASSIUM (MMOL/L) IN SER/PLAS 4.2 3.5-5.1 mmol/L LAB [id number] CHLORIDE (MMOL/L) IN SER/PLAS 101 98-107 mmol/L LAB [id number] CARBON DIOXIDE, TOTAL (MMOL/L) IN SER/PLAS 26 21-31 mmol/L LAB [id number] UREA NITROGEN (MG/DL) IN SER/PLAS 20 7-25 mg/dL LAB [id number] CREATININE (MG/DL) IN SER/PLAS 0.79 0.70-1.30 mg/dL LAB [id number] GLUCOSE (MG/DL) IN SER/PLAS 114 High 70-100 mg/dL LAB [id number] CALCIUM (MG/DL) IN SER/PLAS 8.4 Low 8.6-10.3 mg/dL LAB [id number] ANION GAP IN SER/PLAS 10 7-20 mmol/L LAB [id number] GLOMERULAR FILTRATION RATE ML/MIN/1.73 SQ M.PREDICTED 96.2 >60.0 mL/min/ 1.73m*2 Result Comment: [facility]???s estimated glomerular filtration rate (eGFR) will [...] disproportionately affect any one group of individuals. LAB [id number] UREA NITROGEN/CREA TININE (MASS RATIO) IN SER/PLAS 25.3 NA Performed By: #### [id number] ### # [facility] ([facility]) [address] [place] [address] B-TYPE NATRIURETIC PEPTIDE Collected: 01/12/2025 3:31 AM Status: UNK Source: [facility] TYPE CODE TESTS RESULT OUT OF RANGE REFERENCE UNITS LAB [id number] NATRIURETIC PEPTIDE B (PG/ML) IN SER/PLAS 34 0-100 pg/mL Performed By: #### [id number] ## ## [facility] ([facility]) [address] [place] [address] HEPATIC FUNCTION PANEL Collected: 01/12/2025 3:31 AM Status: UNK Source: [facility] TYPE CODE TESTS RESULT OUT OF RANGE REFERENCE UNITS LAB [id number] BILIRUBIN TOTAL (MG/DL) IN SER/PLAS 0.5 0.3-1.0 mg/dL LAB [id number] BILIRUBIN DIRECT (MG/DL) IN SER/PLAS 0.1 0-0.2 mg/dL LAB [id number] ALKALINE PHOSPHA TASE (U/L) IN SER/PLAS 152 High 34-104 U/L LAB [id number] ASPARTATE AMINOTRANSFERASE (SGOT) (U/L) IN SER/PLAS 25 13-39 U/L LAB [id number] ALANINE AMINOTRANSFERASE (SGPT) (U/L) IN SER/PLAS 20 7-52 U/L LAB [id number] PROTEIN (G/DL) I N SER/PLAS 8.1 6.0-8.3 g/dL LAB [id number] ALBUMIN (G/DL) I N SER/PLAS 3.7 3.5-5.7 g/dL Performed By: #### [id number] ### # [facility] ([facility]) [address] [place] [address] LIPID PANEL Collected: 01/12/2025 3:31 AM Status: UN K Source: [facility] TYPE CODE TESTS RESULT OUT OF RANGE REFERENCE UNITS LAB [id number] TRIGLYCERIDE (MG/DL) IN SER/PLAS 230 High 40-149 mg/dL Result Comment: TRIGLYCERIDE REFERENCE RANGE: 20 YEARS AND OLDER CARDIOVASCULAR RISK LESS THAN 150 mg/dL LOW RISK 150 TO 199 mg/dL BORDERLINE RISK 200 mg/dL AND GREATER HIGH RISK LAB [id number] CHOLESTEROL (MG/DL) IN SER/PLAS 140 120-200 mg/dL LAB [id number] CHOLESTEROL IN LDL (MG/DL) IN SERUM OR PLASMA BY CALCULATION 51 0-160 mg/dL LAB [id number] CHOLESTEROL IN HDL (MG/DL) IN SER/PLAS 43 23-92 mg/dL LAB [id number] NON HDL CHOL. (LDL+VLDL) 97 NA LAB [id number] TOTAL VLDL-C 46 High 0-40 mg/dL LAB 2481 CHOL/HDL 3.3 mg/dL Performed By: #### [id number] ### # [facility] ([facility]) [address] [place] [address] MAGNESIUM Collected: 01/12/2025 3:31 AM Status: UN K Source: [facility] TYPE CODE TESTS RESULT OUT OF RANGE REFERENCE UNITS LAB [id number] MAGNESIUM (MG/DL) IN SER/PLAS 1.9 1.9-2.7 mg/dL Performed By: #### [id number] ## ## [facility] ([facility]) [address] [place] [address] CBC Collected: 01/12/2025 3:31 AM Status: UN K Source: [facility] TYPE CODE TESTS RESULT OUT OF RANGE REFERENCE UNITS LAB [id number] LEUKOCYTES(10*3/ U L) IN BLOOD BY AUTOMATED COUNT 8.31 4.00-10.60 10*3/uL LAB [id number] ERYTHROCYTES (10*6/UL) IN BLOOD BY AUTOMATED COUNT 4.09 Low 4.20-5.70 10*6/uL LAB [id number] HEMOGLOBIN (G/DL ) IN BLOOD 13.4 13.0-17.0 g/dL LAB [id number] HEMATOCRIT (%) I N BLOOD BY AUTOMATED COUNT 41.0 39.0-55.0 % LAB [id number] ERYTHROCYTE MEAN CORPUSCULAR VOLUME (FL) BY AUTOMATED COUNT 100.2 High 82.0-98.0 fL LAB [id number] ERYTHROCYTE MEAN CORPUSCULAR HEMOGLOBIN (PG) BY AUTOMATED COUNT 32.8 27.0-33.0 pg LAB [id number] ERYTHROCYTE MEAN CORPUSCULAR HEMOGLOBIN CONCENTRATION (G/DL) BY AUTOMATED 32.7 32.0-35.0 g/dL LAB [id number] ERYTHROCYTE DISTRIBUTION WIDTH (RATIO) BY AUTOMATED COUNT 13.3 11.5-15.0 % LAB [id number] PLATELETS (10*3/UL) IN BLOOD AUTOMATED COUNT 197 150-400 10*3/uL Performed By: #### [id number] ## ## [facility] ([facility]) [address] [place] [address] 30 Observed: 01/11/2025 5:38 PM Status: COMPLETED Source: [facility] The patient is Moderately St able - Low risk of patient condition declining [...] comfort level or baseline comfort level Outcome: ProgressingProblem: Safety - Adult Goal: Free from fall injury Outcome: ProgressingProblem: Discharge Planning Goal: Discharge to home or other facility with appropriate resources Outcome: ProgressingProblem: Chronic Conditions and Co-morbidities Goal: Patient's chronic conditions and co-morbidity symptoms are monitored and maintained or improved Outcome: Progressing PROGRESS Observed: 01/11/2025 4:36 PM Status: COMPLETED Source: [facility] communication received that Patient is reporting having multiple falls at home and is reporting spouse has a nurse Enedelia from [facility], so would like [facility] if needing [facility] services. Preliminary referral sent to [facility], via [employer] system. PROGRESS Observed: 01/11/2025 4:18 PM Status: COMPLETED Source: [facility] 01/11/25 1606 Admission Assessment Questions Verify insurance [...] Interested Does the patient have a telephonic case manager assigned to them through their insurance? No Living Arrangement (Current/Prior to Hospitalization) Private residence (lives at home with ) Does the patient have history of HHC or SNF? Yes (hx of HHC not active, when patient use to live in [place], patient stated his kadi has [facility] (nurses [...] you able to send link and activate MyChart? MyChart already active CONSULT Observed: 01/11/2025 3:34 PM Status: COMPLETED Source: [facility] Attestation signed by Darrell Sinclair MD at [...] at least mild coronary artery disease at [facility]. Considering his current presentation we will obtain an echocardiogram. He already underwent cardiac angiogram on 01/11 which showed moderate but heavily calcified triple-vessel disease. He will also need aggressive medical therapy with aspirin, statin and likely colchicine as well in light of the recently published COL C OT trial. Darrell Sinclair MD, ScM, MSc Cardiac Camper Assembler Email: [email or web address] Cardiology Consult Note Reason for Consult: unstable angina HPI: Nazario Cortes is a 69 y.o. male with a past medical history significant for reported coronary artery disease (last cath showed 20-30% stenosis in [address] [facility]), hyperlipidemia, depression, and seizures. Reported tumor [...] chest pain. He was initially brought to [facility] and subsequently transferred to [facility] for cardiac catheterization. At present, the patient reports mild chest pain but denies shortness of breath, nausea, vomiting, dizziness, or palpitations. He reports a smoking history but quit in 1996. Blood pressure 142/84, heart rate 70s, EKG sinus rhythm with 1st degree AV block MT interval 210. Cardiology ROS: Negative except as [...] furosemide (LASIX) 40 mg, oral, Daily PRN HYDROcodone-acetaminophen (Minetto) 5-325 mg tablet take 1 tablet by mouth four times a day if needed for severe pain for up to 7 days meclizine (Antivert) 25 mg tablet take 1 tablet by mouth four times a day if needed for dizziness methocarbamol (Robaxin) 750 mg tablet take 1 tablet by mouth four times a day if needed for muscle spasm evzwjxuzovtm-yqwa-qiofotnq-folic acid (Multivitamin 50 Plus) tablet Every 24 hours nitroglycerin (NITROSTAT) 0.3 mg, sublingual PHENobarbital (LUMINAL) 64.8 mg, oral, 3 times daily RT phenytoin ER (Dilantin) 100 mg capsule take 2 capsules by mouth three times a day potassium chloride CR (K-Tab) 20 mEq ER tablet 20 mEq, oral, Daily PRN Medications Prior to Admission Medication Sig Dispense Refill Last Dose aspirin 81 mg EC tablet Take 1 tablet by mouth in the morning. atorvastatin (Lipitor) 10 mg tablet Take 10 mg by mouth at bedtime. citalopram (CeleXA) 40 mg tablet furosemide (Lasix) 40 mg tablet Take 40 mg by mouth if needed each day. HYDROcodone-acetaminophen (Minetto) 5-325 mg tablet take 1 tablet by mouth four times a day if needed for severe pain for up to 7 days meclizine (Antivert) 25 mg tablet take 1 tablet by mouth four times a day if needed for dizziness methocarbamol (Robaxin) 750 mg tablet take 1 tablet by mouth four times a day if needed for muscle spasm zdbsrjjlqsie-rtkq-utbnxaum-folic acid (Multivitamin 50 Plus) tablet 1 (one) time each day at the same time. nitroglycerin (Nitrostat) 0.[address] 0.3 mg under the tongue. PHENobarbitaL (Luminal) 32.4 mg tablet Take 64.8 mg by mouth in the morning, afternoon, and at bedtime. phenytoin ER (Dilantin) 100 mg capsule take 2 capsules by mouth three times a day potassium chloride CR (K-Tab) 20 mEq ER tablet Take 20 mEq by mouth if needed each day. Current Facility-Administered Medications Medication Dose Route Frequency Provider Last Rate Last Admin acetaminophen (Tylenol) tablet 650 mg 650 mg oral q6h PRN Sophie Ramirez MD aspirin EC tablet 81 mg 81 mg oral q AM Sophie Ramirez MD 81 mg at 01/11/25 0951 atorvastatin (Lipitor) tablet 10 mg 10 mg oral Nightly Sophie Ramirez MD furosemide (Lasix) tablet 40 mg 40 mg oral Daily Sophie Ramirez MD 40 mg at 01/11/25 0951 ondansetron ODT (Zofran-ODT) disintegrating tablet 4 mg 4 mg oral q8h PRN Sophie Ramirez MD Or ondansetron HCl (PF) (Zofran) injection 4 mg 4 mg intravenous q6h PRN Sophie Ramirez MD phenytoin ER (Dilantin) capsule 200 mg 200 mg oral TID Sophie Ramirez MD 200 mg at 01/11/25 0951 sennosides-docusate sodium (Esperanza-Colace) 8.6-50 mg per tablet 1 tablet 1 tablet oral BID PRN Sophie Ramirez MD Last Recorded Vitals Patient Vitals for the past 24 hrs: BP Temp Temp src Pulse Resp SpO2 Height Weight 01/11/25 1515 (!) 157/95 -- -- 65 18 94 % -- -- 01/11/25 1500 (!) 147/91 -- -- 67 21 93 % -- -- 01/11/25 1445 146/89 -- -- 69 16 91 % -- -- 01/11/25 1430 155/87 -- -- 67 18 92 % -- -- 01/11/25 1415 (!) 144/96 -- -- 76 17 92 % -- -- 01/11/25 1400 151/86 -- -- 69 10 96 % -- -- 01/11/25 1356 (!) 153/101 -- -- 68 -- (!) 89 % -- -- 01/11/25 1340 162/85 -- -- 74 18 95 % -- -- 01/11/25 1257 -- -- -- -- -- 93 % -- -- 01/11/25 1256 138/84 -- -- 74 20 93 % -- -- 01/11/25 1206 139/84 -- -- 74 20 93 % -- -- 01/11/25 0741 142/84 36.3 ???C (97.3 ???F) Temporal 71 16 93 % -- -- 01/11/25 0100 135/76 36.9 ???C (98.4 ???F) Temporal 73 21 92 % -- -- 01/11/25 0000 -- -- -- -- -- -- 1.854 m (6' 1 ) (!) 139 kg (306 lb 3.2 oz) Physical Examination: GENERAL: AOx3, in no acute [...] Value Ventricular Rate 70 Atrial Rate 70 MT Interval 210 QRS DURATION 78 QT Interval 410 QTC CALCULATION(BAZETT) 442 P Kuna 35 R-Kuna -9 T Wave Kuna 36 Impression Sinus rhythm with 1st degree A-V block Otherwise normal ECG When compared with ECG of 20-NOV-2020 10:48, MT interval has increased Confirmed by Thomas YOUNGER, MILAGROS Garcia (57) on 01/11/2025 1:02:38 PM Lab Results Component Value Date TROPONINI 0.01 01/11/2025 No echocardiogram results found for the past 12 months No nuclear medicine results found for the past 12 months Relevant Imaging Results Cardiac catheterization Cardiovascular Laboratory Report FINAL IMPRESSIONS: Moderate, heavily [...] left radial artery was obtained. A 6 Arabic glide sheath was inserted without difficulty. Bilateral selective coronary angiography was performed using JR 4.0 and JL 4.0 catheters. After reviewing the images, it was elected to conclude the procedure. The catheters were removed. The radial sheath was removed with application of a TR band per protocol to achieve optimal hemostasis. FINDINGS: Hemodynamics: AO 158/87 [106] LEFT VENTRICULOGRAPHY: This was not performed. [...] shows a 50% stenosis. INDICATIONS: Unstable angina ECG 12 lead Sinus rhythm with 1st degree A-V block Otherwise normal ECG When compared with ECG of 20-NOV-2020 10:48, MT interval has increased Confirmed by Thomas YOUNGER, MILAGROS Garcia (57) on 01/11/2025 1:02:38 PM Assessment: Unstable angina Coronary artery disease - Cath on 01/11/2025 revealed moderate, heavily calcified three-vessel coronary artery disease, normal global left ventricular systolic function, and moderate to severe systemic hypertension Hypertension History of seizures Plan: Obtain echocardiogram Continue aspirin and statin Start Losartan and Toprol Monitor telemetry Replete electrolytes, maintain K>4, Mg>2 Rest of medical management per primary team Cardiology will continue to follow along Signed, Karla Granados MD Internal Medicine PGY-2 [facility] Observed: 01/11/2025 1:07 PM Status: COMPLETED Source: [facility] Daily Case Management Update Multidisciplinary rounds have been completed. Barriers to Discharge: Patient presented to [facility] with chest pain, and was transferred to [facility] for heart cath. Patient to go for heart cath today. Diet: Dietary Orders (From admission, onward) Start Ordered 01/11/25 0136 Regular Diet Heart Healthy/HTN, CABG,Stroke, (2gNA, low fat, low cholesterol) Diet effective now Question Answer Comment Room Service? Yes Fat restriction: Heart Healthy/HTN, CABG,Stroke, (2gNA, low fat, low cholesterol) 01/11/25 0137Physician Expected Discharge Date: 01/12/2025 Discharge Delays: PT Six Click Score: OT Six Click Score: PT Recommendations: OT Recommendations: New Consults: Consult Orders (From admission, onward) Start Ordered 02/21/25 0137 Inpatient consult to Cardiology Once Specialty: Cardiology Provider: (Not yet assigned) Question Answer Comment Reason for Consult? Unstable angina Consulting Group CARDIOLOGY TEAM Level of Consultation Consultation and Management 01/11/25136 HENRY Observed: 01/11/2025 1:02 PM Status: COMPLETED Source: [facility] Attestation signed by Arnaud William MD at 01/11/2025 1:07 PM By using [...] personal documentation from me. Additional Comments: Arnaud William MD, MPH, [facility], [facility], [facility] Interventional Cardiology Pager Email: [email or web address] H&P reviewed. The patient was examined and there are no changes to the H&P. Will proceed with coronary angiogram for further assessment. Procedure's details, risks and benefits discussed with the patient and he's agreeable. AKILAH Observed: 01/11/2025 1:00 PM Status: COMPLETED Source: [facility] Attestation signed by Arnaud William MD at 01/11/2025 1:02 PM Arnaud William MD, MPH, [facility], [facility], [facility] Interventional Cardiology Pager Email: [email or web address] Patient: Nazario Cortes Procedure Information Date/Time: 01/11/25 9086 Procedure: Coronary angiography Location: [facility] GYM INSTRUCTOR 3 / [facility] (Cath) Providers: Arnaud William MD Clinical information reviewed: Allergies Meds Problems [...] with fellow and attending. Additional Equipment Requests PLATELET COUNT Collected: 5 11:55 AM Status: UNK Source: [facility] TYPE CODE TESTS RESULT OUT OF RANGE REFERENCE UNITS LAB [id number] PLATELETS (10*3/UL) IN BLOOD AUTOMATED COUNT 177 150-400 10*3/uL Performed By: #### [id number] ## ## [facility] ([facility]) [address] [place] [address] TROPONIN I Collected: 5 11:55 AM Status: UNK Source: [facility] TYPE CODE TESTS RESULT OUT OF RANGE REFERENCE UNITS LAB [id number] TROPONIN I.CARDIAC (NG/ML) IN SERUM OR PLASMA 0.01 0.00-0.04 ng/mL Performed By: #### [id number] ## ## [facility] ([facility]) [address] [place] [address] APTT Collected: 01/11/2025 11:55 AM Status: U NK Source: [facility] Order Comment: Baseline aPTT before initiating heparin infusion. TYPE CODE TESTS RESULT OUT OF RANGE REFERENCE UNITS LAB [id number] ACTIVATED PARTIA L THROMBOPLASTIN TIME IN PPP BY COAGULATION ASSAY 26.3 25.0-35.0 Seconds Result Comment: Clinical sig nificance of the APTT is questionable in the presence of heparin. Performed By: #### [id number] ## ## [facility] ([facility]) [address] [place] [address] TROPONIN I Collected: 01/11/2025 7:23 AM Status: UN K Source: [facility] TYPE CODE TESTS RESULT OUT OF RANGE REFERENCE UNITS LAB [id number] TROPONIN I.CARDIAC (NG/ML) IN SERUM OR PLASMA 0.01 0.00-0.04 ng/mL Performed By: #### [id number] ## ## [facility] ([facility]) [address] [place] [address] 30 Observed: 01/11/2025 4:29 AM Status: COMPLETED Source: [facility] The patient is Moderately St able - Low risk of patient condition declining [...] exacerbated and prevent overall improvement and discharge CBC WITH AUTO DIFFERENTIAL Collected: 01/11/2025 3:23 AM Status: UNK Source: [facility] TYPE CODE TESTS RESULT OUT OF RANGE REFERENCE UNITS LAB [id number] LEUKOCYTES(10*3/ UL) IN BLOOD BY AUTOMATED COUNT 8.63 4.00-10.60 10*3/uL LAB [id number] ERYTHROCYTES (10*6/UL) IN BLOOD BY AUTOMATED COUNT 3.90 Low 4.20-5.70 10*6/uL LAB [id number] HEMOGLOBIN (G/DL) IN BLOOD 13.0 13.0-17.0 g/dL LAB [id number] HEMATOCRIT (%) IN BLOOD BY AUTOMATED COUNT 39.8 39.0-55.0 % LAB [id number] ERYTHROCYTE MEAN CORPUSCULAR VOLUME (FL) BY AUTOMATED COUNT 102.1 High 82.0-98.0 fL LAB [id number] ERYTHROCYTE MEAN CORPUSCULAR HEMOGLOBIN (PG) BY AUTOMATED COUNT 33.3 High 27.0-33.0 pg LAB [id number] ERYTHROCYTE MEAN CORPUSCULAR HEMOGLOBIN CONCENTRATION (G/DL) BY AUTOMATED 32.7 32.0-35.0 g/dL LAB 1750952 ERYTHROCYTE DISTRIBUTION WIDTH (RATIO) BY AUTOMATED COUNT 13.5 11.5-15.0 % LAB [id number] NEUTROPHILS/100 LEUKOCYTES IN BLOOD BY AUTOMATED COUNT 65.2 40.0-72.0 % LAB [id number] LYMPHOCYTES/100 LEUKOCYTES IN BLOOD BY AUTOMATED COUNT 17.7 Low 20.0-45.0 % LAB [id number] MONOCYTES/100 LEUKOCYTES IN BLOOD BY AUTOMATED COUNT 9.0 5.0-12.0 % LAB [id number] EOSINOPHILS/100 LEUKOCYTES IN BLOOD BY AUTOMATED COUNT 6.5 High 0.0-6.0 % LAB [id number] BASOPHILS/100 LEUKOCYTES IN BLOOD BY AUTOMATED COUNT 0.9 0.0-1.0 % LAB [id number] NEUTROPHILS (10*3/UL) IN BLOOD BY AUTOMATED COUNT 5.62 1.60-7.60 10*3/uL LAB [id number] LYMPHOCYTES (10*3/UL) IN BLOOD BY AUTOMATED COUNT 1.53 1.20-4.00 10*3/uL LAB 1612846 MONOCYTES (10*3/UL) IN BLOOD BY AUTOMATED COUNT 0.78 0.10-1.00 10*3/uL LAB 4870008 EOSINOPHILS (10*3/UL) IN BLOOD BY AUTOMATED COUNT 0.56 High 0.00-0.50 10*3/uL LAB [id number] BASOPHILS (10*3/UL) IN BLOOD BY AUTOMATED COUNT 0.08 0.00-0.20 10*3/uL LAB [id number] PLATELETS (10*3/UL) IN BLOOD AUTOMATED COUNT 187 150-400 10*3/uL LAB 254 NRBC (PER 100 WBCS) BY AUTOMATED COUNT 0.0 0 % LAB 1767 IMMATURE GRANULOCYTES/100 LEUKOCYTES IN BLOOD BY AUTOMATED COUNT 0.7 0.0-1.0 % LAB 1768 IMMATURE GRANULOCYTES (10*3/UL) IN BLOOD BY AUTOMATED COUNT 0.06 0.00-0.20 10*3/uL Performed By: #### [id number] # ### [facility] ([facility]) [address] [place] [address] BASIC METABOLIC PANEL Collected: 2024 3:23 AM Status: UNK Source: [facility] TYPE CODE TESTS RESULT OUT OF RANGE REFERENCE UNITS LAB [id number] SODIUM (MMOL/L) IN SER/PLAS 134 Low 136-145 mmol/L LAB 1381384 POTASSIUM (MMOL/L) IN SER/PLAS 4.1 3.5-5.1 mmol/L LAB 6607182 CHLORIDE (MMOL/L) IN SER/PLAS 103 98-107 mmol/L LAB 7987648 CARBON DIOXIDE, TOTAL (MMOL/L) IN SER/PLAS 26 21-31 mmol/L LAB 1958176 UREA NITROGEN (MG/DL) IN SER/PLAS 18 7-25 mg/dL LAB 2528834 CREATININE (MG/DL) IN SER/PLAS 0.81 0.70-1.30 mg/dL LAB 2570427 GLUCOSE (MG/DL) IN SER/PLAS 105 High 70-100 mg/dL LAB 3005579 CALCIUM (MG/DL) IN SER/PLAS 8.3 Low 8.6-10.3 mg/dL LAB 0310878 ANION GAP IN SER/PLAS 9 7-20 mmol/L LAB 5296817 GLOMERULAR FILTRATION RATE ML/MIN/1.73 SQ M.PREDICTED 95.4 >60.0 mL/min/ 1.73m*2 Result Comment: [facility]???s estimated glomerular filtration rate (eGFR) will [...] disproportionately affect any one group of individuals. LAB 6962224 UREA NITROGEN/CREA TININE (MASS RATIO) IN SER/PLAS 22.2 NA Performed By: #### [id number] ### # [facility] ([facility]) [address] [place] [address] TROPONIN I Collected: 01/11/2025 3:23 AM Status: UN K Source: [facility] TYPE CODE TESTS RESULT OUT OF RANGE REFERENCE UNITS LAB 5412672 TROPONIN I.CARDIAC (NG/ML) IN SERUM OR PLASMA 0.01 0.00-0.04 ng/mL Performed By: #### [id number] ## ## [facility] ([facility]) [address] [place] [address] PROGRESS Observed: 01/11/2025 2:16 AM Status: COMPLETED Source: [facility] -Patient pain control. -Patient's hydrocodone 5/325 as needed -Continue other home medications per reconciliation Maintain DVT prophylaxis DVT protocols GI protection Protonix Monitor labs and correct abnormalities Discussed the plan of care with patient's nurse and with the patient himself and he is in agreement. PROGRESS Observed: 01/11/2025 2:16 AM Status: COMPLETED Source: [facility] -Continue statins. PROGRESS Observed: 01/11/2025 2:16 AM Status: COMPLETED Source: [facility] -Treat with statins -Manage also with nitrates -Aspirin -Consult cardiology and prep for heart cath later on today. PROGRESS Observed: 01/11/2025 2:16 AM Status: COMPLETED Source: [facility] -Seizures currently stable r esume and reconcile home anticonvulsants PROGRESS Observed: 01/11/2025 2:16 AM Status: COMPLETED Source: [facility] -Chronic problem we will con leticia to monitor PROGRESS Observed: 01/11/2025 2:16 AM Status: COMPLETED Source: [facility] -Use nitroglycerin and nitra gris -N.p.o. after midnight -Will need to proceed to have cath tomorrow -Consult cardiology. HP Observed: 01/11/2025 1:38 AM Status: COMPLETED Source: [facility] Hospital Medicine History and Physical 01/11/2025 1:38 AM THE HOSPITALIST TEAM PREFERS TO USE [employer] FOR NON-URGENT COMMUNICATION 7AM-7PM. IF I DO NOT RESPOND WITHIN 20 MINUTES OR URGENT MATTERS, PLEASE CALL THROUGH THE REPRODUCTION ARTIST. FROM 7PM-7AM, PLEASE PAGE [phone](COVR). Chief Complaint No chief complaint on file. History of Present Illness Nazario Cortes is an 69 y.o. male who came from [facility] with Angina pectoris unstable. Patient is a 69-year-old male with the following past medical history CAD, HLD, depression, history of seizures, obstructive sleep apnea, obesity, history of bladder cancer diagnosed 2018 with tumor removal. Patient was transferred from [facility] where he has been admitted on being managed for chest pain. He was seen by cardiology and after consultation patient was transferred to [facility] for cardiac catheterization tomorrow. He states that [...] current laboratory findings are available here at [facility]. Review of System and Physical Exam Temp: [...] sleep apnea comes seen on transfer from [facility] with unstable angina. Patient is being prepped for cardiac catheterization tomorrow by cardiology. Assessment & Plan Unstable angina ([facility]) -Use nitroglycerin and nitrates -N.p.o. after midnight -Will need to proceed to have cath tomorrow -Consult cardiology. Coronary arteriosclerosis -Treat with statins -Manage also with nitrates -Aspirin -Consult cardiology and prep for heart cath later on today. Dyslipidemia -Continue statins. Malignant neoplasm of urinary bladder ([facility]) -Chronic problem we will continue to monitor Seizure disorder ([facility]) -Seizures currently stable resume and reconcile home [...] this hospital stay by a member of [facility]. Past Medical History Past Medical History: Diagnosis Date Bladder cancer ([facility]) around 1997 Cholelithiasis Colon polyp Depression Dyslipidemia Hearing loss Left foot drop Peripheral neuropathy Seizure disorder (CMS/HCC) TIA (transient ischemic attack) Past Surgical History Past Surgical History: Procedure Laterality Date ANTERIOR CERVICAL DISCECTOMY W/ FUSION C5-C7 CARDIAC CATHETERIZATION CARPAL TUNNEL RELEASE Bilateral CATARACT EXTRACTION, BILATERAL CHEST WALL BIOPSY thoracoscopy wedge resection of lung CHOLECYSTECTOMY COLONOSCOPY CTA HEAD W IV CONTRAST 11/20/2020 CT HEAD ANGIO W AND WO IV CONTRAST PANDYA CONVERSION CTA NECK W IV CONTRAST 11/20/2020 CT NECK ANGIO W AND WO IV CONTRAST APNDYA CONVERSION FOOT SURGERY Achilles LYMPH NODE DISSECTION POSTERIOR CERVICAL LAMINECTOMY PCDF C3-C5 SHOULDER SURGERY Social History Social History Socioeconomic History Marital status: Spouse name: Not on file Number of children: Not on file Years of education: Not on file Highest education level: Not on file Occupational History Not on file Tobacco Use Smoking status: Former Current packs/day: 0.00 Types: Cigarettes Quit date: 04/18/1997 Years since quittin.7 Smokeless tobacco: Never Substance and Sexual Activity Alcohol use: Not Currently Drug use: Never Sexual activity: Defer Other Topics Concern Not on file Social History Narrative Not on file Social Determinants of Health Financial Resource Strain: Low Risk (01/11/2025) Overall Financial Resource Strain (CARDIA) Difficulty of Paying Living Expenses: Not hard at all Food Insecurity: No Food Insecurity (01/11/2025) Hunger Vital Sign Worried About Running Out of Food in the Last Year: Never true Ran Out of Food in the Last Year: Not on file Transportation Needs: No Transportation Needs (01/11/2025) Transportation Lack of Transportation (Medical): No Lack of Transportation (Non-Medical): Not on file Physical Activity: Insufficiently Active (12/14/2023) Received from [facility], [facility] Exercise Vital Sign Days of Exercise per Week: 2 days Minutes of Exercise per Session: 20 min Stress: No Stress Concern Present (12/14/2023) Received from [facility], [facility] [place] of Occupational Health - Occupational Stress Questionnaire Feeling of Stress : Not at all Social Connections: Socially Integrated (12/14/2023) Received from [facility] Social Connection and Isolation Panel [NHANES] Frequency of Communication with Friends and Family: Three times a week Frequency of Social Gatherings with Friends and Family: Three times a week Attends Je[employer] Witness Services: More than 4 times per year Active Member of Clubs or Organizations: No Attends Club or Organization Meetings: More than 4 times per year Marital Status: Intimate Partner Violence: Unknown (01/11/2025) Humiliation, Afraid, Rape, and Kick questionnaire Fear of Current or Ex-Partner: No Emotionally Abused: Not on file Physically Abused: Not on file Sexually Abused: Not on file Housing Stability: Low Risk (01/11/2025) Housing Stability Vital Sign Unable to Pay for Housing in the Last Year: No Number of Times Moved in the Last Year: Not on file Homeless in the Last Year: No Family History family history includes COPD in his brother; Diabetes in his sister; Kidney cancer in his sister; Stroke in his father; Supraventricular tachycardia in his mother. Allergies is allergic to oxycodone and gabapentin. Prior to Admission Medications Medications Prior to Admission Medication Sig Dispense Refill Last Dose aspirin 81 mg EC tablet Take 1 tablet by mouth in the morning. atorvastatin (Lipitor) 10 mg tablet Take 10 mg by mouth at bedtime. citalopram (CeleXA) 40 mg tablet furosemide (Lasix) 40 mg tablet Take 40 mg by mouth if needed each day. HYDROcodone-acetaminophen (Minetto) 5-325 mg tablet take 1 tablet by mouth four times a day if needed for severe pain for up to 7 days meclizine (Antivert) 25 mg tablet take 1 tablet by mouth four times a day if needed for dizziness methocarbamol (Robaxin) 750 mg tablet take 1 tablet by mouth four times a day if needed for muscle spasm rytipdjihunw-vptq-ugalgitx-folic acid (Multivitamin 50 Plus) tablet 1 (one) time each day at the same time. nitroglycerin (Nitrostat) 0.[address] 0.3 mg under the tongue. PHENobarbitaL (Luminal) 32.4 mg tablet Take 64.8 mg by mouth in the morning, afternoon, and at bedtime. phenytoin ER (Dilantin) 100 mg capsule take 2 capsules by mouth three times a day potassium chloride CR (K-Tab) 20 mEq ER tablet Take 20 mEq by mouth if needed each day. Labs Labs Reviewed BASIC METABOLIC PANEL CBC AND DIFFERENTIAL Narrative: The following orders were created for panel order CBC and differential. Procedure Abnormality Status --------- ------ CBC auto differential[[id number]] Please view results for these tests on the individual orders. TROPONIN I CBC WITH AUTO DIFFERENTIAL Imaging MR cervical spine w and wo contrast Narrative: MR CERVICAL SPINE W AND WO CONTRAST [...] neuroforaminal narrowing. No significant spinal canal narrowing. Impression: ACDF changes at C5-C7. Posterior fusion and decompressive laminectomies in the upper cervical spine. Moderate to severe spinal canal narrowing at C2-3. Significant multilevel neuroforaminal narrowing at C3-4, C5-6, C6-7 and to a lesser extent C7-T1. Electronically signed: SONI BOWMAN MD. Signed Sophie Ramirez MD [facility] Medicine 01/11/2025 1:38 AM 30 Observed: 01/11/2025 12:56 AM Status: COMPLETED Source: [facility] The patient is Moderately St able - Low risk of patient condition declining or worsening The patient's goals for the shift include Comfort The clinical goals for the shift include VSS XR KNEE RT 4V* Observed: 10/17/2024 2:38 PM Status: COMPLETED Source: [facility] [place] [address] XRay Report Signed Patient: Nazario Cortes Jr MR#: [id number] : 1955 Acct:[id number] Age/Sex: 69 / M ADM Date: 10/17/24 Loc: [facility] Room: Type[facility] Attending Dr: Yancy Lawson APRN Copies to: [...] Hoa Lockwood M.D.10/17/2024 2:40 PM Dictation Location: [place] [address] Transcribed By: [facility] 10/17/24 1440 Dictated By: Hoa Lockwood MD 10/17/24 1438 Signed By: <Electronically signed by MD Hoa Lockwood in OV> 10/17/24 1440 XR KNEE RT 4V* Observed: 09/07/2024 4:14 PM Status: COMPLETED Source: [facility] Main [address] [address] XRay Report Signed Patient: Nazario Cortes Jr MR#: [id number] : 1955 Acct:[id number] Age/Sex: 69 / M ADM Date: 09/07/24 [facility]: [facility] Attending Dr: Joslyn Garcia SHOE CLEANER Copies to: Joslyn Garcia APRN Ordering Provider: [...] Ching Jr., D.O.09/07/2024 4:15 PM Dictation Location: [facility]--15 Transcribed By: [facility] 09/07/245 Dictated By: Bar Ching Jr, DO 09/07/24 1614 Signed By: <Electronically signed by Bar Ching Jr, DO in OV> 09/07/24 1615 FOLLOW-UP Observed: 08/08/2024 3:15 PM Status: COMPLETED Source: [facility] [id number] Nazario Cortes M Date Provider Department Center 08/08/2024 CORNELIO NEGRON [facility] SURG [place] Family History Problem Relation Age of Onset Supraventricular tachycardia Mother Stroke Father Kidney cancer Sister Diabetes Sister COPD Brother Family Status - Relation Status Age at Mother Father Sister Brother Level of Service:40388 MT OFFICE/OUTPATIENT ESTABLISHED MOD MDM 30 MIN Reason for Visit and Comments: Follow-up [[id number]] - Pt is here for a follow up visit for Lumbar Stenosis. PROGRESS Observed: 08/08/2024 3:15 PM Status: COMPLETED Source: [facility] SUBJECTIVE: Chief complaint: Back pain. History of [...] about 6 or 7 years ago, in [facility] and had injections, which he states he has made his symptoms worse. Not interested in pursuing additional injections. Has had lawn caretaker many years ago for previous symptoms [...] needed each day., Disp: , Rfl: HYDROcodone-acetaminophen (Minetto) 5-325 mg tablet, take 1 tablet by [...] needed for muscle spasm, Disp: , Rfl: taomdfxwtojc-mfpi-cxiaiayy-folic acid (Multivitamin 50 Plus) tablet, 1 (one) [...] if needed each day., Disp: , Rfl: vitamin B complex 936-6-897-2-2 mg/mL injection, B-Complex 1 QD, Disp: , Rfl: Allergies: Allergies Allergen Reactions Oxycodone Angioedema Other reaction(s): Difficulty breathing, Not available, Unknown Gabapentin Other reaction(s): Not available, Unknown Exam: Vitals reviewed: Temp: [36.8 ???C (98.2 ???F)] 36.8 ???C (98.2 ???F) Heart Rate: [76] 76 BP: (115)/(72) 115/72 No intake/output data recorded. No intake/output data recorded. present via phone. Exam reviewed and updated. Constitutional: In no apparent distress. Chest: Chest expansion symmetrical. Respirations regular and nonlabored. Extremities without edema. Skin warm and dry without pallor. Neuro: GCS 15/15. Attention and memory intact. No dysarthria or aphasia. Sensation: Intact to light touch C5-T1 bilaterally with exception decreased sensation left C5, bilateral C8 dermatomes. Intact light touch L2- L3 dermatomes bilaterally, diminished L4, L5, S1 dermatomes bilaterally. Musculoskeletal: Deltoid 4+/5 bilaterally. Triceps 4+/5 bilaterally. Biceps 4+/5 bilaterally. Finger flexors 4+/5 bilaterally. Finger extensors 4+/5 bilaterally. Hip flexors 4+/5 bilaterally. Knee flexors and extensors 4+/5 bilaterally. Ankle dorsal flexors right 4+/5, left 3/5. Ankle plantar flexors right 4+/5, left 4/5. Left AFO brace. Muscle tone without hyper or hypotonicity. Muscle bulk appropriate for age. Gait: Unsteady, wide-based. Ambulatory with rolling walker. Labs: No visits with results within 30 Day(s) from this visit. Latest known visit with results is: [facility] Encounter on 11/20/2020 Component Date Value Ref Range Status Ventricular Rate 11/20/2020 64 BPM Final Atrial Rate 11/20/2020 64 BPM Final MT Interval 11/20/2020 180 ms Final QRS DURATION 11/20/2020 80 ms Final QT Interval 11/20/2020 406 ms Final QTC CALCULATION(BEZET) 11/20/2020 418 ms Final P Kuna 11/20/2020 -7 degrees Final R-Kuna 11/20/2020 -4 degrees Final T Wave Kuna 11/20/2020 47 degrees Final Diagnosis 11/20/2020 Final Value:Normal sinus rhythm Normal ECG No previous ECGs available Confirmed by Thomas HENNING, L.S. (2) on 11/20/2020 1:14:22 PM Imaging: No results found for this or any previous visit from the past 360 days. Impression: Degenerative cervical spinal stenosis. Frequent falls. Lumbar spondylosis. Chronic low back pain. Left foot drop. Plan: Independently reviewed and interpreted MRI cervical spine completed at [facility] 07/26/2024. There is some moderate canal stenosis at C2-C3 with mild bilateral foraminal stenosis. There is ankylosis of C3-C4. There is bilateral foraminal stenosis at this level. There is right-sided foraminal stenosis at C5-C6. There is no significant canal stenosis at this level. No significant canal stenosis at C6-C7. I had previously reviewed cervical spine imaging with Dr. Matos as well. In order to correct the stenosis at C2-C3, this would require opening of his current PCF incision, removing C2 lamina, adding additional hardware, and inserting longer rods to make a longer construct. Did discuss this with patient, who is not particularly interested as his neck symptoms are not especially bothersome. Independently reviewed and interpreted MRI lumbar spine completed 06/13/2023. There is multilevel disc degeneration with disc space narrowing most prominent at L4-L5. At L1-L2, L2-L3 there is facet arthropathy and ligamentum flavum hypertrophy without significant canal or foraminal stenosis. At L3-L4, facet arthropathy with disc bulging and a small central disc protrusion that contributes to moderate canal and right greater than left foraminal stenosis. At L4-L5, there is facet arthropathy and ligamentum flavum hypertrophy with moderate canal stenosis as well as bilateral foraminal stenosis. L5-S1, there is facet arthropathy with disc bulging with moderate canal and left greater thanright foraminal stenosis. I had previously reviewed lumbar spine imaging with Dr. Matos as well. Dr. Matos states that a lumbar surgery would likely be an L3-S1 instrumented fusion with possible interbody fusions. This may help his leg symptoms, though not clear that it would help his back symptoms. Did discuss the possibility of an EMG with patient. He reports he has had an EMG of his lower extremities previously, about 6 or 7 years ago in [facility]. States that showed only peripheral neuropathy due to his history of chemotherapy. He does not wish to undertake another EMG at this time. Does not particularly wish to consider neurosurgical intervention at this time. I did provide him with my card and informed him that he could certainly follow-up with us if there are new or worsening concerns. Low risk of progressive neurologic decline due to overall stability of symptoms. Return visit multiple problems. Independent review of imaging-MRI lumbar spine, MRI cervical spine. Low risk. I spent [30] minutes of total time on the day of the visit. This time was spent preparing for the visit, obtaining and reviewing any outside history/data, history-taking, physical examination, counseling and education of patient and family regarding the diagnosis and plan of care, performing medical decision making, referring to and communicating with other health care providers, independently reviewing and interpreting imaging and other results, documentation in the EMR, and coordination of care. Please see the additional documentation in this note for specific details. 36 Observed: 07/30/2024 2:19 PM Status: COMPLETED Source: [facility] Talked to patient. Advised antonio monroe I had reviewed his MRI of the [...] again given his ongoing issues. Verbalizes understanding. TELEPHONE Observed: 07/30/2024 12:00 AM Status: COMPLETED Source: [facility] [id number] Nazario Cortes M Date Provider Department Center 07/30/2024 CORNELIO NEGRON [facility] SURG [place] Family History Problem Relation Age of Onset Supraventricular tachycardia Mother Stroke Father Kidney cancer Sister Diabetes Sister COPD Brother Family Status - Relation Status Age at Mother Father Sister Brother MR CERVICAL SPINE W AND WO CONTRAST Observed: 07/26/2024 2:09 PM Status: UNK Source: [facility] MR CERVICAL SPINE W AND WO C ONTRAST HISTORY: Unsteady gait, weakness, numbness in extremities [...] Electronically signed: SONI BOWMAN MD. Not Vldtd XR ELBOW LT MIN 3V* Observed: 05/15/2024 4:21 PM Status: COMPLETED Source: [facility] Main [place] [address] [place], [place] [id number] XRay Report Signed Patient: Nazario Cortes Jr MR#: [id number] : 1955 Acct:[id number] Age/Sex: 69 / M ADM Date: 05/15/24 Loc: [facility] Room: [facility] Attending Dr: Joslyn Garcia SHOE CLEANER Copies to: Joslyn Garcia APRN Ordering Provider: [...] Zain Fitzpatrick M.D.05/15/2024 4:23 PM Dictation Location: [place] [address] Transcribed By: [facility] 05/15/24 162 Dictated By: Zain Fitzpatrick DO 05/15/24 1621 Signed By: <Electronically signed by Zain Fitzpatrick DO in OV> 05/15/24 1623 ALLERGIES DATE TYPE / CODE NAME / CODE REACTION SEVERITY SOURCE 01/29/2020 DRUG INGREDI/[id number]( SNOMED CT) OXYCODONE Angioedema Medium [facility] 01/29/2020 DRUG INGREDI/[id number]( SNOMED CT) GABAPENTIN [facility] ENCOUNTERS ADMIT/DISCHARGE ACCOUNT NUMBER ADMITTING ENCOUNTER CLASS LOCATION SOURCE 04/02/2025/04/02/20 [id number] Ambulatory Building:[facility] 02/20/2025/02/21/20 [id number] Ambulatory Building:[facility] EPIC 02/06/2025/02/07/20 25 [id number] Ambulatory Building:NOM S CI AUD [facility] EPIC 01/22/2025/01/23/20 25 [id number] Ambulatory Building:[facility] 01/21/2025/01/22/20 25 [id number] Ambulatory Building:[facility] EPIC 01/12/2025 [id number] Inpatient Encounter Building:UTM C XRAY [facility] 01/11/2025 [id number] Inpatient Encounter Building:[facility] 01/11/2025 [id number] Inpatient Encounter Building:[facility] 01/11/2025/01/13/20 [id number] SOPHIE RAMIREZ Inpatient Encounter Building:[facility] URoom: 3140Bed: 3140-01 [facility] 12/19/2024/12/19/19 [id number] Ambulatory Building:CIE NT [facility] 11/27/2024/11/27/19 25 [id number] Ambulatory Building:[facility] 11/22/2024/11/22/19 25 [id number] Ambulatory Building:[facility] 10/30/2024/10/30/20 24 [id number] Ambulatory Building:NOM S SH AUD [facility] 10/25/2024/10/25/20 24 [id number] Ambulatory Building:[facility] 10/17/2024/10/17/20 24 [id number] [facility] [facility] 09/07/2024/09/07/20 24 [id number] [facility] 08/08/2024 [id number] Ambulatory Building:UTM C SURG [facility] 07/26/2024/07/26/20 24 [id number] Ambulatory Buildin [address]88 [facility] 06/13/2024/06/13/20 24 [id number] [facility] 06/13/2024/06/13/20 24 [id number] Ambulatory Building:FBO [facility] EPIC 05/21/2024/05/21/20 24 [id number] Ambulatory Building:[facility] FAMMED [facility] EPIC 05/16/2024/05/16/20 24 [id number] Ambulatory Building:FBO [facility] EPIC 05/15/2024/05/15/20 24 [id number] [facility]/04/17/20 [id number] Ambulatory Building:NOM S NB AUD [facility] EPIC PAYERS ENCOUNTER GUARANTOR PAYER SUBSCRIBER SOURCE 04/02/2025 NAZARIO PRIETOOB: [address], [place] [address]Mlp: (HP) Primary Insurance:AETNA MEDICARE ADVANTAGEPolicy Number: [id number] Date:2023-11-21 NAZARIO JESSICAMANDOB: [id number], [place] [address] [facility] EPIC 04/02/2025 Secondary Insurance[place]: [id number] Date:2023-08-21 NAZARIO JESSICAMANDOB: [id number], [place] [address] [facility] EPIC 02/20/2025 NAZARIO JESSICAMANDOB: [address] [facility] [facility] [address], [place] [address]Mvr: (HP) Primary Insurance:AETNA MEDICARE ADVANTAGEPolicy Number: [id number] Date:2023-11-21 NAZARIO JESSICAMANDOB: [id number], [place] [address] [facility] EPIC 02/20/2025 Secondary Insurance[place]: [id number] Date:2023-08-21 NAZARIO JESSICAMANDOB: [id number], [place] [address] [facility] EPIC 02/06/2025 NAZARIO JESSICAMANDOB: [address], [place] [address]Ucg: () Primary Insurance:[employer] MEDICAREPolicy Number: [id number] Date:2022-08-21 - 2023-08-21 NAZARIO JESSICAMANDOB: [id number], [place] [address] [facility] EPIC 02/06/2025 Secondary Insurance:AETNA MEDICARE ADVANTAGEPolicy Number: [id number] Date:2023-11-21 NAZARIO EGANJENNIMANDOB: [id number], [place] [address] [facility] EPIC 02/06/2025 Tertiary Insurance:[place] Number: [id number] Date:2023-08-21 NAZARIO EGANJENNIMANDOB: [id number], [place] [address] [facility] EPIC 01/22/2025 Primary Insurance:AETNA MEDICARE ADVANTAGEPolicy Number: [id number] Date:2023-11-21 NAZARIO CORTES JR.: [id number], [place] [address] [facility] 01/22/2025 Secondary Insurance:MEDICAID [place]: [id number] Date:2023-08-21 NAZARIO CORTES JR.: [id number], [place] [address] [facility] 01/21/2025 NAZARIO PRIETOOB: [address], [place] [address]Rbo: () Primary Insurance:AETNA MEDICARE ADVANTAGEPolicy Number: [id number] Date:2023-11-21 NAZARIO JESSICAMANDOB: [id number], [place] [address] [facility] EPIC 01/21/2025 Secondary Insurance:[place]: [id number] Date:2023-08-21 NAZARIO Lee JIGNESHJOHNOB: [id number], [place] [address] [facility] EPIC 01/12/2025 Primary Insurance:AETNA MEDICARE ADVANTAGEPolicy Number: [id number] Date:2023-11-21 NAZARIO CORTES JR.: [id number], [place] [address] [facility] 01/12/2025 Secondary Insurance:MED[place]ID [place]: [id number] Date:2023-08-21 NAZARIO CORTES JR.: [id number], [place] [address] [facility] 01/11/2025 Primary Insurance:AETNA MEDICARE ADVANTAGEPolicy Number: [id number] Date:2023-11-21 NAZARIO CORTES JR.: [id number], [place] [address] [facility] 01/11/2025 Secondary Insurance:MED[place]ID [place]: [id number] Date:2023-08-21 NAZARIO CORTES JR.: [id number], [place] [address] [facility] 01/11/2025 Primary Insurance:AETNA MEDICARE ADVANTAGEPolicy Number: [id number] Date:2023-11-21 NAZARIO SOPHIA : [id number], [place] [address] [facility] 01/11/2025 Secondary Insurance:MED[place]ID [place]: [id number] Date:2023-08-21 NAZARIO SOPHIA JR.: [id number], [place] [address] [facility] 01/11/2025 Primary Insurance:AETNA MEDICARE ADVANTAGEPolicy Number: [id number] Date:2023-11-21 NAZARIO SOPHIA : [id number], [place] [address] [facility] 01/11/2025 Secondary Insurance:MED[place]ID [place] Number: [id number] Date:2023-08-21 NAZARIO SOPHIA : [id number], [place] [address] [facility] 12/19/2024 NZAARIO Lee JIGNESHJENNIMANDOB: [address], [place] [address]Xjj: () Primary Insurance:AETNA MEDICARE ADVANTAGEPolicy Number: [id number] Date:2023-11-21 NAZARIO Rosa JASKARANMANDOB: [id number], [place] [address] [facility] EPIC 12/19/2024 Secondary Insurance:[place] Number: [id number] Date:2023-08-21 NAZARIO JESSICAMANDOB: [id number], [place] [address] [facility] EPIC 11/27/2024 NAZARIO JESSICAMANDOB: [address], [place] [address]Ssn: (HP) Primary Insurance:AETNA MEDICARE ADVANTAGEPolicy Number: [id number] Date:2023-11-21 NAZARIO JESSICAMANDOB: [id number], [place] [address] [facility] EPIC 11/27/2024 Secondary Insurance:[place] Number: [id number] Date:2023-08-21 NAZARIO JESSICAMANDOB: [id number], [place] [address] [facility] EPIC 11/22/2024 NAZARIO JESSICAMANDOB: [address], [place] [address]Snv: (HP) Primary Insurance:AETNA MEDICARE ADVANTAGEPolicy Number: [id number] Date:2023-11-21 NAZARIO JESSICAMANDOB: [id number], [place] [address] [facility] EPIC 11/22/2024 Secondary Insurance:[place]: [id number] Date:2023-08-21 NAZARIO JESSICAMANDOB: [id number], [place] [address] [facility] EPIC 10/30/2024 NAZARIO JESSICAMANDOB: [address], [place] [address]Izg: (HP) Primary Insurance:[facility] MEDICAREPolicy Number: [id number] Date:2022-08-21 - 2023-08-21 NAZARIO JESSICAMANDOB: [id number], [place] [address] [facility] EPIC 10/30/2024 Secondary Insurance:AETNA MEDICARE ADVANTAGEPolicy Number: [id number] Date:2023-11-21 NAZARIO Lee JIGNESHJENNIMANDOB: [id number], [place] [address] [facility] EPIC 10/30/2024 Tertiary Insurance:[place] Number: [id number] Date:2023-08-21 NAZARIO JESSICAMANDOB: [id number], [place] [address] [facility] EPIC 10/25/2024 NAZARIO Lee JIGNESHJENNIMANDOB: [address], [place] [address]Mwu: (HP) Primary Insurance:AETNA MEDICARE ADVANTAGEPolicy Number: [id number] Date:2023-11-21 NAZARIO Lee CONNEROB: [id number], [place] [address] [facility] EPIC 10/25/2024 Secondary Insurance:[place]: [id number] Date:2023-08-21 NAZARIO Lee CONNEROB: [id number], [place] [address] [facility] EPIC 10/17/2024 Nazario Cortes Jr[address], [place] [address]Tas: (HP) [facility] PFFSPolicy Number: [id number] Date:[id number] [address]VM: Nazario Cortes JrDOB: [id number], [place] [address]Ymu: (HP) [facility] 10/17/2024 Secondary Insurance:MedicaidPoli cy Number: [id number] Date:2024-10-17 Nazario Cortes JrDOB: [id number], [place] [address]Aug: () [facility] 10/17/2024 Tertiary Insurance:Self PayPolicy Number: Effective Date:2024-10-17 [facility] 09/07/2024 Nazario Rosa Sophia Jr[address], [place] [address]Oof: () Primary Insurance:[employer] PFFSPolicy Number: [id number] Date:9985-72-07[address] [address]PW: Nazario Rosa EganSophia JrDOB: [id number], [place] [address]Fth: () [facility] 09/07/2024 Secondary Insurance:MedicaidPoli cy Number: [id number] Date:2024-09-07 Nazario Rosa JessicaSophia JrDOB: [id number], [place] [address]Gtt: () [facility] 09/07/2024 Tertiary Insurance:Self PayPolicy Number: Effective Date:2024-09-07 [facility] 08/08/2024 Primary Insurance:AETNA MEDICARE ADVANTAGEPolicy Number: [id number] Date:2023-11-21 NAZARIO JESSICAMANDOB: [id number], [place] [address] [facility] 08/08/2024 Secondary Insurance:MED[place]ID [place]: [id number] Date:2023-08-21 NAZARIO JESSICAMANDOB: [id number], [place] [address] [facility] 07/26/2024 Primary Insurance:AETNA MEDICARE ADVANTAGEPolicy Number: [id number] Date:2023-11-21 NAZARIO JESSICAMANDOB: [id number], [place] [address] [facility] 07/26/2024 Secondary Insurance:MED[place]ID [place]: [id number] Date:2023-08-21 NAZARIO JESSICAMANDOB: [id number], [place] [address] [facility] 06/13/2024 NAZARIO Lee JIGNESHUFFMANDOB: [address], [place] [address]Fxe: (HP) Primary Insurance:AETNA MEDICARE ADVANTAGEPolicy Number: [id number] Date:2023-11-21 NAZARIO JESSICAMANDOB: [id number], [place] [address] [facility] EPIC 06/13/2024 Secondary Insurance:[place]: [id number] Date:2023-08-21 NAZARIO JESSICAMANDOB: [id number], [place] [address] [facility] EPIC 06/13/2024 NAZARIO Lee JIGNESHJENNIMANDOB: [address], [place] [address]Rqw: (HP) Primary Insurance:AETNA MEDICARE ADVANTAGEPolicy Number: [id number] Date:2023-11-21 NAZARIO Rosa JIGNESHJENNIMANDOB: [id number], [place] [address] [facility] EPIC 06/13/2024 Secondary Insurance:[place]: [id number] Date:2023-08-21 NAZARIO Rosa JIGNESHJENNIMANDOB: [id number], [place] [address] [facility] EPIC 05/21/2024 NAZARIO Rosa JIGNESHJENNIMANDOB: [address], [place] [address]Fdl: (HP) Primary Insurance:AETNA MEDICARE ADVANTAGEPolicy Number: [id number] Date:2023-11-21 NAZARIO JESSICAMANDOB: [id number], [place] [address] [facility] EPIC 05/21/2024 Secondary Insurance:[place]: [id number] Date:2023-08-21 NAZARIO PRIETOOB: [id number], [place] [address] [facility] EPIC 05/16/2024 NAZARIO PRIETOOB: [address], [place] [address]Jfy: (HP) Primary Insurance:AETNA MEDICARE ADVANTAGEPolicy Number: [id number] Date:2023-11-21 NAZARIO PRIETOOB: [id number], [place] [address] [facility] EPIC 05/16/2024 Secondary Insurance:[place] Number: [id number] Date:2023-08-21 NAZARIO PRIETOOB: [id number], [place] [address] [facility] EPIC 05/15/2024 Nazario Cortes Jr[address], [place] [address]Ukv: (HP) Primary Insurance:[employer] PFFSPolicy Number: [id number] Date:8756-09-35BW [address]LRLAURIE Granados [address]RN: Nazario Cortes JrDOB: [id number], [place] [address]Ind: (HP) [facility] 05/15/2024 Secondary Insurance:MedicaidPoli cy Number: [id number] Date:2024-05-15 Nazario Cortes JrDOB: [id number], [place] [address]Whz: (HP) [facility] 05/15/2024 Tertiary Insurance:[employer]et[employer] Insurance CoPolicy Number: [id number] Date:0534-62-56TJ Dre 392914Tm LAURIE Montague [address]NC: Nazario Cortes JrDOB: [id number], [place] [address]Ntz: (HP) [facility] 05/15/2024 Tertiary Insurance:Self PayPolicy Number: Effective Date:2024-05-15 NOT GIVENUNK [facility] 04/17/2024 NAZARIO PRIETOOB: [address], [place] [address]Qcn: (HP) Primary Insurance:AETNA MEDICARE ADVANTAGEPolicy Number: [id number] Date:2023-11-21 NAZARIO PRIETOOB: [id number], [place] [address] [facility] 04/17/2024 Secondary Insurance:[place] Number: [id number] Date:2023-08-21 NAZARIO PRIETOOB: [id number], [place] [address] [facility] EPIC
[2025-04-14] VITALS (23 sets, daily range): BP systolic 103–145; BP diastolic 61–84; PULSE 78–95; TEMP 36.8; O2SAT 89–96; BMI 35.3
--- NOTE | 2025-04-14 20:18 | ECG_ITS ---
[facility] Test Date: 2025-04-14 Pat Name: GÓMEZ CORTES Department: Room: - Gender: Male [employer] I[employer] Winder: : [id number] Requested By: [id number] Order Number: [id number] Reading MD: COLE MOREIRA M.D. Measurements Intervals [place] Rate: 80 P: 38 MN: 176 QRS: 31 QRSD: 82 T: 49 QT: 366 QTc: 402 Interpretive Statements 1100 Sinus rhythm 9110 normal ECG Compared to ECG 04/04/2025 21:50:04 No significant changes Electronically Signed On 04-15-2025 7:53:09 EDT by COLE MOREIRA M.D.
--- NOTE | 2025-04-14 20:21 | ED.GENADUL1 ---
HPI HPI - General Adult General Chief complaint: Shortness of Breath/Dyspnea Stated complaint: SOB Time Seen by Provider: 04/14/25 20:18 Source: patient Mode of arrival: ambulance History of Present Illness HPI narrative: 70-year-old male to the emergency department chief complaint shortness of breath. Patient reports a history of COPD with frequent exacerbations. He reports he was just recently treated for a COPD exacerbation his have only been off steroids for a week. He reports that over the last 48 hours he has had a significant increase in his shortness of breath. He reports a productive cough. He denies any fever, sweats, chills. No chest pain. Used a breathing treatment at home prior to calling EMS. EMS gave 1 albuterol treatment and 125 mg of IV Solu-Medrol.EMS reports that he was 87% on his baseline 2 L nasal cannula upon their arrival. Related Data Home Medications ?Medication ?Instructions ?Recorded ?Confirmed atorvastatin 10 mg tablet 10 mg PO .hs 05/12/23 03/24/25 citalopram 40 mg tablet 40 mg PO DAILY 05/12/23 03/24/25 phenytoin sodium extended 100 mg 200 mg PO TID 05/12/23 03/24/25 capsule furosemide 40 mg tablet 40 mg PO DAILY PRN edema 05/24/24 03/25/25 nitroglycerin 0.3 mg sublingual 0.3 mg sublingual Q5M PRN chest 05/24/24 03/24/25 tablet pain psyllium husk 0.4 gram capsule 0.4 g PO DAILY 12/04/24 03/24/25 (Daily Fiber) aspirin 81 mg tablet,delayed 81 mg PO DAILY 01/09/25 03/24/25 release (Adult Low Dose Aspirin) albuterol sulfate 90 mcg/actuation 2 inh inhalation Q4H PRN shortness 02/21/25 03/24/25 aerosol inhaler of breath or wheezing fluticasone propionate 50 2 spray intranasal DAILY 02/21/25 03/25/25 mcg/actuation nasal spray,suspension metoprolol succinate 25 mg 25 mg PO DAILY 02/21/25 03/24/25 tablet,extended release 24 hr spironolactone 25 mg tablet 25 mg PO DAILY 02/21/25 03/24/25 phenobarbital 32.4 mg tablet 64.8 mg PO TID 03/24/25 03/24/25 triamcinolone acetonide 0.5 % 1 applic topical TID 03/24/25 03/24/25 topical cream Previous Rx's ?Medication ?Instructions ?Recorded azithromycin 250 mg tablet 250 mg PO DAILY 3 days #3 tabs 03/27/25 benzonatate 100 mg capsule 100 mg PO TID PRN cough #20 caps 03/27/25 prednisone 20 mg tablet 20 mg PO BID 5 days #10 tabs 03/27/25 tiotropium bromide 18 mcg capsule 1 cap inhalation DAILY 30 days #30 03/27/25 with inhalation device (Spiriva caps with HandiHaler) azithromycin 500 mg tablet See Rx Instructions PO .COMPLEX #6 04/14/25 (Zithromax TRI-REMI) tabs benzonatate 100 mg capsule 100 mg PO Q6H PRN cough #20 caps 04/14/25 prednisone 20 mg tablet 60 mg (3 x 20 mg) PO DAILY 5 days 04/14/25 #15 tabs Allergies Allergy/AdvReac Type Severity Reaction Status Date / Time oxycodone (From OxyContin) Allergy Severe Anaphylaxis Verified 04/04/25 21:44 gabapentin Allergy Unknown Unknown Verified 04/04/25 21:44 Opioid HPI Opioid Management Most Recent Opioid Data: Last Pain Scale 4 03/09/25, 22:00 Last Pain Intensity 0 03/08/25, 10:45 Last ORT Total Score 0 03/24/25, 23:22 Last ORT Risk Category Low Risk 03/24/25, 23:22 Review of Systems ROS Status of ROS 10 or more systems reviewed and unremarkable except as noted in history and below [facility] Medical History Right lower lobe pneumonia ?J18.9 - Pneumonia, unspecified organism (ICD-10) Essential (primary) hypertension ?I10 - Essential (primary) hypertension (ICD-10) Seizure disorder ?G40.909 - Epilepsy, unspecified, not intractable, without status epilepticus (ICD-10) CAD (coronary artery disease) ?I25.10 - Atherosclerotic heart disease of [place] coronary artery without angina pectoris (ICD-10) Cervical vertebral fusion ?M43.22 - Fusion of spine, cervical region (ICD-10) Lipoma of axilla ?D17.20 - Benign lipomatous neoplasm of skin and subcutaneous tissue of unspecified limb (ICD-10) Rupture, tendon, Achilles ?S86.019A - Strain of unspecified Achilles tendon, initial encounter (ICD-10) Syncope ?R55 - Syncope and collapse (ICD-10) Seizure ?R56.9 - Unspecified convulsions (ICD-10) Malignant neoplasm of mediastinum ?C38.3 - Malignant neoplasm of mediastinum, part unspecified (ICD-10) Depression ?F32.A - Depression, unspecified (ICD-10) Dyslipidemia ?E78.5 - Hyperlipidemia, unspecified (ICD-10) Deviated nasal septum ?J34.2 - Deviated nasal septum (ICD-10) Degenerative lumbar spinal stenosis ?M48.061 - Spinal stenosis, lumbar region without neurogenic claudication (ICD-10) 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 - Drug-induced polyneuropathy (ICD-10) ?T45.1X5A - Adverse effect of antineoplastic and immunosuppressive drugs, initial encounter (ICD-10) CAD, multiple vessel ?I25.10 - Atherosclerotic heart disease of [place] coronary artery without angina pectoris (ICD-10) 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 - Malignant neoplasm of mediastinum, part unspecified (ICD-10) Bladder cancer ?C67.9 - Malignant neoplasm of bladder, unspecified (ICD-10) HLD (hyperlipidemia) ?E78.5 - Hyperlipidemia, unspecified (ICD-10) Chest pain ?R07.9 - Chest pain, unspecified (ICD-10) Surgical History History of cataract surgery ?Z98.49 - Cataract extraction status, unspecified eye (ICD-10) History of foot surgery ?Z98.890 - Other specified postprocedural states (ICD-10) History of esophagogastroduodenoscopy (EGD) ?Z98.890 - Other specified postprocedural states (ICD-10) History of colonoscopy ?Z98.890 - Other specified postprocedural states (ICD-10) History of neck surgery ?Z98.890 - Other specified postprocedural states (ICD-10) H/O shoulder surgery ?Z98.890 - Other specified postprocedural states (ICD-10) History of cholecystectomy ?Z90.49 - Acquired absence of other specified parts of digestive tract (ICD-10) Family History Father Family history of myocardial infarction Sister Family history of cancer Other Family history of coronary artery disease Family history of diabetes mellitus Family history of gastric cancer Family history of heart disease Family history of hypertension Family history of kidney cancer Family history of stroke Social History Within the past year, how often did you have a drink containing alcohol: never Score interpretation: A score less than 4 is consistent with normal alcohol consumption. Smoking status: Former smoker Non-prescribed substance use: denies use Previous occupational history: retired Highest level of school completed/degree received: high school graduate Are you now , , , , never or living with a partner: In a typical week, how many times do you talk on the telephone with family, friends, or neighbors: 3 or more times per week How often do you get together with friends or relatives: 3 or more times per week Little interest or pleasure in doing things: not at all Feeling down, depressed, or hopeless: not at all Feel stressed/tense/nervous/anxious/difficulty sleeping: to some extent Life stressors: other Life stressor details: health Gender Identity: male Exam Narrative Exam Narrative: VITALS: I have reviewed the triage vital signs. GENERAL: Adult male in moderate respiratory distress NEURO: Alert and oriented. Moves all extremities. Face is symmetric and expressive. EYES: PERRL. No scleral icterus or conjunctival injection. No discharge. HENT: Normocephalic, atraumatic. Hearing is grossly intact. Nares grossly patent and without discharge. Mucous membranes moist. NECK: No JVD. Patient moves neck without restriction. CARDIO: Rhythm regular. Normal rate. No murmur, rub, or gallop. Pulses equal bilaterally in the upper and lower extremity. No lower extremity edema. PULM: Wheezes throughout. Tachypnea. Accessory muscle use. Moderate conversational dyspnea. GI/: Abdomen is soft and non-tender. Normoactive bowel sounds. EXTREMITIES: Symmetric muscle bulk. No joint swelling. No clubbing, cyanosis, or deformity. SKIN: Warm and dry. Normal turgor. No rash or lesions appreciated. PSYCH: Mood, affect, and interaction is appropriate to the setting. Constitutional Vital Signs, click to edit/add: Last Vital Signs Temp 98.2 F 04/14/25 20:18 Pulse 95 H 04/14/25 21:30 Resp 27 H 04/14/25 21:30 BP 143/77 H 04/14/25 21:30 Pulse Ox 89 L 04/14/25 21:30 O2 Del Method Nasal Cannula 04/14/25 20:45 O2 Flow Rate 2 04/14/25 20:45 Course Vital Signs Vital signs: Vital Signs Blood Pressure 145/73 H 04/14/25 20:16 Temperature 98.2 F 04/14/25 20:18 Pulse Rate 95 H 04/14/25 21:30 Respiratory Rate 27 H 04/14/25 21:30 Blood Pressure 143/77 H 04/14/25 21:30 Pulse Oximetry 89 L 04/14/25 21:30 Oxygen Delivery Method Nasal Cannula 04/14/25 20:45 Oxygen Delivery Flow Rate 2 04/14/25 20:45 Medical Decision Making [facility] Narrative Medical decision making narrative: 70-year-old male to the emergency department with chief complaint of shortness of breath. Tachypnea, otherwise stable vitals. Basic labs, chest x-ray, troponin and BNP are pending. 2x DuoNeb treatment ordered. Patient agrees with this plan. Lab work reviewed and noted. No major abnormalities. Chest x-ray is without focal infiltrate or change from his previous. EKG is without evidence of ischemia. Findings were discussed with the patient. He is significantly improved. Ambulatory pulse ox was performed and the patient had no desaturation or difficulties ambulating about the department on his baseline O2. Discussed discharge with the patient and he agreed with plan. Prednisone, azithromycin, Tessalon Perles. He has breathing treatments at home which she will continue every every 4 hours until he is feeling better. Return precautions were discussed. All questions were answered. The patient was discharged home. [facility] DATA #116 - Avoidance of Antibiotic Treatment for Acute Bronchitis/Bronchiolitis [] The patient has acute bronchitis/bronchiolitis and antibiotics were not prescribed or dispensed today. [SATISFIES MIPS PERFORMANCE] [] The patient has acute bronchitis/ bronchiolitis. Antibiotics were prescribed or dispensed because the patient meets one of the following: [MIPS PERFORMANCE EXCEPTION/EXCLUSION] [x] Patient has a medical reason for prescribing or dispensing an antibiotic. That reason is [COPD exacerbation] (ex. COPD, bacterial infection, acute sinusitis, etc.). [] Patient is currently on antibiotics or has been in the last 30 days. [] Patient's visit resulted in an inpatient admission. [] The patient has acute bronchitis/ bronchiolitis and antibiotics were prescribed or dispensed today. [DOES NOT SATISFY [facility] PERFORMANCE] Medical Records Medical records reviewed: Yes I reviewed the patient's medical records Lab Data Labs: Lab Results 04/14/25 Range/Units 20:35 WBC 8.6 (4.0-11.0) 10^3/uL RBC 3.86 L (4.70-6.10) 10^6/uL Hgb 12.8 L (14.0-18.0) g/dL Hct 39.1 L (42.0-54.0) % MCV 101.3 H (80.0-94.0) fL MCH 33.2 (25.9-34.0) pg MCHC 32.7 (29.9-35.2) g/dL RDW 13.1 (11.0-15.0) % Plt Count 169 (150-450) 10^3/uL MPV 9.9 (9.5-13.5) fL Neut % (Auto) 57.9 (43.0-75.0) % Lymph % (Auto) 21.5 (20.5-60.0) % [place] % (Auto) 9.1 (1.7-12.0) % Eos % (Auto) 10.1 H (0.9-7.0) % Baso % (Auto) 0.7 (0.2-2.0) % Neut # (Auto) 5.0 (1.4-6.5) 10^3/uL Lymph # (Auto) 1.9 (1.2-3.8) 10^3/uL [place] # (Auto) 0.8 (0.3-0.8) 10^3/uL Eos # (Auto) 0.9 H (0.0-0.7) 10^3/uL Baso # (Auto) 0.1 (0.0-0.1) 10^3/uL Abs Immat Gran (auto) 0.06 H (0.00-0.03) 10^3/uL Imm/Tot Granulo (auto) 0.7 H (0.0-0.5) % Sodium 143 (136-145) mmol/L Potassium 4.1 (3.5-5.1) mmol/L Chloride 105 (98-107) mmol/L Carbon Dioxide 31.8 (21.0-32.0) mmol/L Anion Gap 10.3 BUN 14.0 (7.0-18.0) mg/dL Creatinine 1.09 (0.70-1.30) mg/dL Est GFR ( Amer) >60 (>=60 mL/min/1.73m^2) Est GFR (Non-Af Amer) >60 (>=60 mL/min/1.73m^2) BUN/Creatinine Ratio 12.8 Glucose 92 (74-106) mg/dL Calcium 8.1 L (8.5-10.1) mg/dL Troponin I High Sens 4.2 (4.0-76.1) pg/mL NT-Pro-B Natriuret Pep 82.0 (<=900.0) pg/mL Imaging Data Chest x-ray: Attestation: I personally reviewed and interpreted this imaging study as follows: My impression: No focal infiltrate. No significant change from previous ECG Data Attestation: I personally reviewed and interpreted this ECG as follows: (Normal sinus rhythm at a rate of 80. No STEMI. Normal QTc 402.) Discharge Plan Discharge Chief Complaint: Shortness of Breath/Dyspnea Clinical Impression: COPD with acute exacerbation Patient Disposition: Home, Self-Care Time of Disposition Decision: 22:28 Condition: Good Mode of Transportation: Private Vehicle Prescriptions / Home Meds: New prednisone 20 mg tablet 60 mg PO DAILY 5 Days Qty: 15 0RF azithromycin [Zithromax TRI-REMI] 500 mg tablet See Rx Instructions .ROUTE .COMPLEX Qty: 6 0RF Rx Instructions: For 250 mg dose pack: take 500 mg today (day 1), then 250 mg for 4 days (days 2-5) benzonatate 100 mg capsule 100 mg PO Q6H PRN (Reason: cough) Qty: 20 0RF No Action furosemide 40 mg tablet 40 mg PO DAILY PRN (Reason: edema) nitroglycerin 0.3 mg tablet, sublingual 0.3 mg sublingual Q5M PRN (Reason: chest pain) psyllium husk [Daily Fiber] 0.4 gram capsule 0.4 g PO DAILY aspirin [Adult Low Dose Aspirin] 81 mg tablet,delayed release (DR/EC) 81 mg PO DAILY triamcinolone acetonide 0.5 % cream 1 applic TOPICAL TID phenobarbital 32.4 mg tablet 64.8 mg PO TID prednisone 20 mg tablet 20 mg PO BID 5 Days Qty: 10 0RF azithromycin 250 mg tablet 250 mg PO DAILY 3 Days Qty: 3 0RF benzonatate 100 mg capsule 100 mg PO TID PRN (Reason: cough) Qty: 20 0RF tiotropium bromide [Spiriva with HandiHaler] 18 mcg capsule, w/inhalation device 1 cap inhalation DAILY 30 Days Qty: 30 0RF Rx Instructions: puncture 1 cap using device; one dose = 2 inhalations atorvastatin 10 mg tablet 10 mg PO .hs citalopram 40 mg tablet 40 mg PO DAILY phenytoin sodium extended 100 mg capsule 200 mg PO TID spironolactone 25 mg tablet 25 mg PO DAILY metoprolol succinate 25 mg tablet extended release 24 hr 25 mg PO DAILY albuterol sulfate 90 mcg/actuation HFA aerosol inhaler 2 inh INHALATION Q4H PRN (Reason: shortness of breath or wheezing) fluticasone propionate 50 mcg/actuation spray,suspension 2 spray INTRANASAL DAILY Print Language: Frisian Instructions: COPD (Chronic Obstructive Pulmonary Disease) (ED) Additional Instructions: Call the office of your primary care doctor to arrange for follow-up within the above-stated timeframe. Your ED visit was focused on your acute issue and does not replace primary care. You should review your labs, imaging, and diagnoses from this ED visit with your primary care physician. There may be non-emergent/ incidental findings that need further evaluation. You should review your vital signs including blood pressure with your PCP. If you were prescribed medications you should discuss possible side-effects and drug interactions with your pharmacist. Call 911 or go to the nearest Emergency Department if you develop any new or worsening symptoms. Seek immediate medical attention if you develop: worsening shortness of breath, difficulty breathing, chest pain, nausea, vomiting, weakness, numbness, tingling, excessive sweating, loss of motion in your arms or legs, or any new or worsening symptoms. Referrals: Jignesh Manjarrez MD [Primary Care Provider, Family Practice] - 1 week
[2025-04-14 20:41] LABS: Basophils Absolute Auto 0.1 10^3/uL (0.0-0.1); Basophils Percent Auto 0.7 % (0.2-2.0); Eosinophils Absolute Auto 0.9 10^3/uL (0.0-0.7); Eosinophils Percent Auto 10.1 % (0.9-7.0); Hematocrit 39.1 % (42.0-54.0); Hemoglobin 12.8 g/dL (14.0-18.0); Immature Granulocytes Abs Auto 0.06 10^3/uL (0.00-0.03); Immature Granulocytes Pct Auto 0.7 % (0.0-0.5); Lymphocytes Absolute Auto 1.9 10^3/uL (1.2-3.8); Lymphocytes Percent Auto 21.5 % (20.5-60.0); Mean Corpuscular HGB Conc 32.7 g/dL (29.9-35.2); Mean Corpuscular Hemoglobin 33.2 pg (25.9-34.0); Mean Corpuscular Volume 101.3 fL (80.0-94.0); Mean Platelet Volume 9.9 fL (9.5-13.5); Monocytes Absolute Auto 0.8 10^3/uL (0.3-0.8); Monocytes Percent Auto 9.1 % (1.7-12.0); Neutrophils Percent Auto 57.9 % (43.0-75.0); Platelet Count 169 10^3/uL (150-450); Red Blood Count 3.86 10^6/uL (4.70-6.10); Red Cell Distribution Width 13.1 % (11.0-15.0); White Blood Count 8.6 10^3/uL (4.0-11.0)
[2025-04-14] MEDS: IPRATROPIUM/ALBUTEROL SULFATE 3 ML AMPUL.NEB 6 ML IH (20:45)
[2025-04-14 21:03] LABS: Anion Gap 10.3; BUN Creatinine Ratio 12.8; Calcium 8.1 mg/dL (8.5-10.1); Carbon Dioxide 31.8 mmol/L (21.0-32.0); Chloride 105 mmol/L (98-107); Estimated GFR (African America >60 (>=60 mL/min/1.73m^2); Estimated GFR (Non-African Ame >60 (>=60 mL/min/1.73m^2); Glucose 92 mg/dL (74-106); Potassium 4.1 mmol/L (3.5-5.1); Sodium 143 mmol/L (136-145); Troponin I High Sensitivity 4.2 pg/mL (4.0-76.1)
--- NOTE | 2025-04-14 22:24 | PC.NURSE ---
exp wheezes improved with a slight exp wheeze at [facility], improved from first assessment. Pt remains on the 2L NC he wears at home with a pulse ox of 92-93%
== END 2025-04-14 22:55 | disposition home or self-care (01) ==
PROVIDERS: Emergency Provider Student in an Organized Health Care Education/Training Program; PCP Family Medicine
DX: J44.1 Chronic obstructive pulmonary disease with (acute) exacerbation (principal); R06.02 Shortness of breath; Z99.81 Dependence on supplemental oxygen; Z90.49 Acquired absence of other specified parts of digestive tract; Z87.891 Personal history of nicotine dependence
CPT/HCPCS: 36415; 71045; 80048; 83880; 84484; 85025; 93005; 94640; 99285

== ENCOUNTER 2025-06-02 21:21 | Inpatient (IN) | payer MEDICARE, MEDICAID, SELFPAY ==
--- OUTSIDE RECORDS SUMMARY | 2024-04-02 06:10 | XMS_ITS | Continuity of Care Document ---
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 Name Role Phone Alexander Mcgowan MD Unavailable Unavailable Allergies, Adverse Reactions, Alerts Substance Reaction Status Criticality lisinopril Active No Information Medications Medication Instructions Dosage Effective Dates (start - stop) Status Comments ezetimibe 10 mg tablet - Act gloria amlodipine 10 mg tablet - Ac tive benzonatate 200 mg capsule - Active azithromycin 250 mg tablet - Active tamsulosin 0.4 mg capsule - Active metformin 1,000 mg tablet - Active methocarbamol 500 mg tablet - Active rosuvastatin 20 mg tablet - Active quetiapine 50 mg tablet - Ac tive pantoprazole 40 mg tablet,delayed release - Active mirtazapine 45 mg tablet - Active losartan 100 mg-hydrochlorothiazide 25 mg tablet - Active timolol maleate 0.5 [...] Copied on Encounter [facility], [address] [place], [address], [place] tel:[phone] OID [place] Left hand f/u (chief complaint) Primary osteoarthri tis, left wrist [address]lyn [address]. [address], [place], [place], [id number] , [place]. tel:[phone] Referring Provider: Jere Mclaughlin[address] [place], [address] . [facility] [address] [place], [address], [place] tel:[phone] OID [place] LEFT HAND AND WRIST PAIN, SWELLING (chief complaint) Primary osteoarthri tis, left wrist Roslyn Munoz. [address], [place], [place], [id number] , [place]. tel:[phone] Referring Provider: [place], [address] . Family History Family Member Type Diagnosis Age At Onset No Information Payers Payer name Insurance type Covered libertarian ID Authorciarana francisco javier(s) R - [id number] Social History Type Description Quantity Date Captured [...]
--- OUTSIDE RECORDS SUMMARY | 2024-12-31 06:10 | XMS_ITS ---
Author Organization [facility] Address [address] [place] [address] Care Team Providers Care Auto Body Estimator Name Role Phone Jignesh Manjarrez Primary Care Provider Dirk Amezcua [facility] [phone] REASON FOR VISIT RIGHT TIBIAL PLAT. STRESS FX Encounters Encounter Location Date Provider Diagnosis [facility] Office [address] [place] [address] 12/31/2024 Dirk Galvez Plan Of Treatment No Information Progress Notes * GÓMEZ CORTES JrDOB: (70 yo M)Acc No.[id number]:12/31/2024 Patient: Ashley JENSENGÓMEZ Jr Provider: Jonatan Galvez MD :1955 A ge:69 Y S ex:Male Date:12/31/2024 [address] [place], [place] Pcp:Jignesh Manjarrez Subjective: * Chief Complaints: * 1 . RIGHT TIBIAL PLAT. STRESS FX. * Medical History: Objective: * Vitals: Assessment: Plan: * Treatment: Forms: * Images: * Electronic signature of Venu Galvez MD on 06/02/2025 at 09:29 PM EDT Sign off status: Pending * Provider: Jonatan Galvez MD Date: 0 12/31/2024 Generated for Printi ng/Faxing/eTransmitting on: 0 06/02/2025 09:29 PM EDT
--- OUTSIDE RECORDS SUMMARY | 2025-01-07 07:00 | XMS_ITS ---
Author Organization [facility] Address [address] [place] [address] Care Team Providers Care Electron Beam Operator Name Role Phone Jignesh Manjarrez Primary Care Provider Dirk Amezcua [facility] [phone] Results Component Value Reference Range Notes SCC- KNEE 2VIEW RIGHT [id number] Reviewed date:02/07/2025 01:31:10 PM Interpretation: Performing Lab: Notes/Report: REASON FOR VISIT RIGHT TIBIAL PLAT. STRESS FX Encounters Encounter Location Date Provider Diagnosis [facility] Office [address] [place] [address] [place] [address] 01/07/2025 Dirk Galvez Closed fracture of right tibial plateau, initial encounter S82.141A Assessments Encounter Date Diagnosis (ICD Code) Assessment Notes Treatment Notes Treatment Clinical Notes Section Notes 01/07/2025 Closed fracture of right tibial plateau, initial encounter (ICD-10 - S82.141A) Plan Of Treatment No Information Progress Notes * GÓMEZ CORTES JrDOB: (70 yo M)Acc No.[id number]:01/07/2025 Patient: Ashley GÓMEZ JENSEN Jr Provider: Jonatan Galvez MD :1955 A ge:69 Y S ex:Male Date:01/07/2025 [address], [place], [phone] Pcp:Jignesh Manjarrez Subjective: * Chief Complaints: * 1 . RIGHT TIBIAL PLAT. STRESS FX. * Medical History: Objective: * Vitals: Assessment: * Assessment: 1. C losed fracture of right tibial plateau, initial encounter - S82.141A Plan: * Treatment: Forms: * Images: * Electronic signature of Venu Galvez MD on 06/02/2025 at 09:29 PM EDT Sign off status: Pending * Provider: Jonatan Galvez MD Date: 0 01/07/2025 Generated for Zahra vela/Nathan/Kelyitting on: 0 06/02/2025 09:29 PM EDT
--- OUTSIDE RECORDS SUMMARY | 2025-01-28 07:20 | XMS_ITS ---
Author Organization [facility] Address [address] [place] [address] Care Team Providers Care Design Quality Engineer Name Role Phone Jignesh Manjarrez Primary Care Provider Dirk Amezcua [facility] [phone] Results Component Value Reference Range Notes SCC- KNEE 2VIEW RIGHT 00208 Reviewed date:01/31/2025 11:01:24 AM Interpretation: Performing Lab: Notes/Report: REASON FOR VISIT RIGHT TIBIAL PLAT. STRESS FX Encounters Encounter Location Date Provider Diagnosis [facility] Office [address] [place] [address] [place] [address] 01/28/2025 Dirk Galvez Closed fracture of right tibial plateau, initial encounter S82.141A Assessments Encounter Date Diagnosis (ICD Code) Assessment Notes Treatment Notes Treatment Clinical Notes Section Notes 01/28/2025 Closed fracture of right tibial plateau, initial encounter (ICD-10 - S82.141A) Plan Of Treatment No Information Progress Notes * GÓMEZ CORTES JrDOB: (70 yo M)Acc No.[id number]:01/28/2025 Patient: Ashley GÓMEZ JENSEN Jr Provider: Jonatan Galvez MD :1955 A ge:70 Y S ex:Male Date:01/28/2025 [address], [place], [id number] Pcp:Jignesh Manjarrez Subjective: * Chief Complaints: * [...] * Provider: Jonatan Galvez MD Date: 0 01/28/2025 Generated for Zarha vela/Nathan/Kelyitting on: 0 06/02/2025 09:29 PM EDT
--- OUTSIDE RECORDS SUMMARY | 2025-03-27 07:01 | XMS_ITS ---
Author Organization [facility] in [place] Address [address] [place] [address] Care Team Providers Care Administrator Pesticide Name Role Phone Jignesh Manjarrez MD Primary Care Provider Unavailab Perfecto Aguirre Unavailable [phone] REASON FOR VISIT [facility] F/U Appt. Encounters Encounter Location Date Provider Diagnosis Pulmonary [facility] [place] [address] [place] [address] 03/27/2025 Perfecto Portillo Plan Of Treatment Next Appt Details Provider Name:Perfecto Portillo, 06/04/2025 03:00:00 PM, [address] [place], [address], Progress Notes * Nazario CORTES EDOB:[birth year] (70 yo M)Acc No.[id number]:03/27/2025 Patient: Nazario MIDDLETON :1955 A ge:70 Y S ex:Male Address:[address], [place] [address] * true * Date: Generated for Zahra vela/Carlitosg/eTransmitting on: 0 06/02/2025 09:30 PM EDT
--- OUTSIDE RECORDS SUMMARY | 2025-04-18 07:00 | XMS_ITS ---
Author Organization [facility] in [place] Address [address] [place] [address] Care Team Providers Care Hat Checker Name Role Phone Jignesh Manjarrez MD Primary Care Provider UnavailPerfecto Hernandez Unavailable [phone] Allergies Allergen (clinical drug ingredient) Drug/Non Drug Allergy documented on EMR Reaction Allergy Type Onset Date Status gabapentin Gabapentin unknown Drug Allergy Activ e oxycodone oxyCODONE anaphylaxis Drug Allergy Activ e Results Component Value Reference Range Notes [id number] SCREENIN G SWAB Reviewed date:04/30/2025 04:32:54 PM Interpretation: Performing Lab: Notes/Report: REASON FOR VISIT [facility] F/U/COPD Medications Medication SIG (Take, Route, Frequency, Duration) Notes Start Date End Date Status PHENobarbital 32.4 MG TAKE 2 TABLETS BY MOUTH THREE TIMES DAILY Oral for 30 Days Active Phenytoin Sodium Extended 100 MG Oral for 90 Days Active predniSONE 20 MG Oral for 5 Days Active Albuterol Sulfate HFA 108 (90 Base) MCG/ACT 2 puffs as needed for SOB Inhalation Q4H for 17 days 18gm or whatever it is ... dispense #1 inhaler Active Advair Diskus 500-50 MCG/ACT 1 puff Inhalation BID for 30 days Rinse after use Medicaid only pays for name brand Advair 04/18/2025 Active Nitroglycerin 0.4 MG 1 tablet under the tongue and allow to dissolve as needed. Take every 5 minutes up to 3 times if chest pain persists Sublingual Three times a day Active Methocarbamol 750 MG TAKE 1 TABLET BY MOUTH THREE TIMES DAILY NEEDED FOR MUSCLE SPASMS Oral for 14 Days Active Metoprolol Succinate ER 25 MG Oral for 90 Days Active Meclizine HCl 25 MG Oral for 8 Days Active HYDROcodone-Acetaminop hen 5-325 MG TAKE 1 TABLET BY MOUTH FOUR TIMES DAILY NEEDED FOR PAIN Oral for 7 Days Active Fluticasone Propionate 50 MCG/ACT instill 2 (TWO) sprays IN EACH NOSTRIL DAILY, before first use prime pump, after use clean tip and replace cap Nasal for 60 Days Active Furosemide 40 MG Oral for 30 Days Active Benzonatate 100 MG Oral for 5 Days Active Citalopram Hydrobromide 40 MG TAKE 1 TABLET BY MOUTH IN THE MORNING Oral for 90 Days Active Incruse Ellipta 62.5 MCG/ACT 1 puff Inhalation QD for 30 days Active Atorvastatin Calcium 10 MG TAKE 1 TABLET BY MOUTH AT BEDTIME Oral for 90 Days Active Azithromycin 250 MG TAKE 2 TABLETS by mouth today, THEN take 1 TABLET once a day FOR the next 4 DAYS. Oral for 5 Days Active Aspirin 81 MG 1 tablet Orally Once a day Active Albuterol Sulfate (2.5 MG/3ML) 0.083% Inhalation for 8 Days Active Social History Tobacco Use: Social History Observation Description Date Details (start date - stop date) Former Smoker NA - NA Tobacco Control (Standard) Question Answer Notes Tobacco use: Former smoker How long has it been since y ou last smoked? 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) Active confirmed Problem Macrocytic anemia (73509128) Macrocytic anemia (D53.9) Active confirmed Problem Ex-tobacco user (finding) (662035080) History of tobacco abuse (Z87.891) Active confirmed Problem Obstructive sleep apnea syndrome (10773206) KAROL (obstructive sleep apnea) (G47.33) Active confirmed Problem Morbid obesity (701815633) Morbid obesity (E66.01) Active confirmed Problem COPD - Chronic obstructive pulmonary disease (46055707) COPD (chronic obstructive pulmonary disease) (J44.9) Active confirmed Problem Chronic respiratory failure (48755735) Chronic respiratory failure with hypoxia (J96.11) Active confirmed Vital Signs Weight 320.2 lbs 04/18/2025 Height 72.50 in 04/18/2025 Blood pressure systolic 129 mm Hg 04/18/20 25 Blood pressure diastolic 65 mm Hg 025 Temperature 96.6 degrees Fahrenheit 04/18/20 25 Heart Rate 68 /min 04/18/2025 Respiratory Rate 18 /min 04/18/2025 BMI 42.83 kg/m2 04/18/2025 Oximetry 94 % 04/18/2025 Encounters Encounter Location Date Provider Diagnosis Pulmonary Medicine [address] [address] 04/18/2025 Perfecto Portillo COPD (chronic obstructive pulmonary disease) J44.9 ; Chronic respiratory failure with hypoxia J96.11 ; Peripheral eosinophilia D72.19 ; CAD (coronary artery disease) I25.10 ; Macrocytic anemia D53.9 ; Seizure disorder, primary G40.909 ; Malignant neoplasm of mediastinum, part unspecified C38.3 ; KAROL (obstructive sleep apnea) G47.33 ; History of tobacco abuse Z87.891 and Morbid obesity E66.01 Assessments Encounter Date Diagnosis (ICD Code) Assessment Notes Treatment Notes Treatment Clinical Notes Section Notes 04/18/2025 COPD (chronic obstructive pulmonary disease) (ICD-10 - J44.9) Due to the patient's morbid obesity decreasing the FVC, spirometry reflects a restrictive pattern - this is confirmed as TLC is technically normal @ 80%. The restriction is obscuring any underlying obstructive process such as COPD - therefore, spirometry cannot be used for diagnostic purposes for COPD. There is a moderate diffusion impairment (DLCO 58%) which can be seen in COPD/emphysema and/or CAD. He has responded some to Incruse, but remains symptomatic. Systemic steroids improve symptoms, but their effects wear soon after completing the treatment course. He had 4 ER visits within the last 6 weeks with 2 of those visits resulting in hospitalization. 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 Interestingly, the eosinophils have remained quite elevated in spite of systemic steroids (which typically depletes the eosinophil count). He is only on a LAMA. d/t the ongoing symptoms and repeated ER visits, his therapy needs intensified. Addition of LABA and ICS are indicated. Given elevated eosinophils, suspect there is a significant inflammatory process, so will add high dose ICS ([facility] no longer has FeNO testing). He states he likes the DPI Ellipta Incruse inhaler - neither Breo nor Trelegy are formulary inhalers - Will Rx Advair 500/50 Diskus @ 1 puff BID - he was counseled to rinse/gargle after use. He is to continue using Incruse @ 1 puff QD. Though COPD is likely d/t heavy smoking history in the past (3-4ppd x 25 years), will check for alpha-1 antitrypsin (AAT) deficiency. Pamphlet discussing AAT causes, testing, and potential treatment was provided to the patient. Appropriate follow-up is dependent on identified genotype. Will have patient return in ~6 weeks. If still symptomatic and/or continues to have ER visits for COPD, a biologic which targets eosinophils is indicated (e.g. Dupixent, Fasenra). 04/18/2025 Chronic respiratory failure with hypoxia (ICD-10 - J96.11) [id number] performed today regarding continued need for supplemental O2. Patient was prescribed O2 @ discharge from hospital prior to establishing care with me. Counseled patient to continue using O2 for now as his breathing & respiratory status is unstable. He voiced improvement in dyspnea with use, and notices SpO2 drops into the 80's still when not weareing O2. 04/18/2025 Peripheral eosinophilia (ICD-10 - D72.19) Eosinophils: -04/14/2025: 10.1% / 900 -04/04/2025: 11.4% / 1000 -03/24/2025: 12.4% / 1100 -02/21/2025: 4.9% / 500 Eosinophils remain elevated in spite of systemic steroids. Patient has eosinophilic phenotype of COPD. If he fails addition of high dose ICS Advair 500/50 on top of Incruse, next step will be biologic therapy. 04/18/2025 CAD (coronary artery disease) (ICD-10 - I25.10) [facility] 01/11/2025: Moderate heavily calcified triple vessel coronary artery disease Follows with [facility] Cardiology. Current plans are to treat medically. 04/18/2025 Macrocytic anemia (ICD-10 - D53.9) Review of past labs @ [facility] note a slight decrease in Hb with MCV consistently in high 90's and low 100's suggesting a mild macrocytic anemia, such as a B12 or folate deficiency. Doubt this is contributing significantly to his dyspnea. 04/18/2025 Seizure disorder, primary (ICD-10 - G40.909) Controlled. Would avoid theophylline d/t risk of seizures if levels are not monitored well. There are newer and safer COPD medications without the risk of seizures to use at this point 04/18/2025 Malignant neoplasm of mediastinum, part unspecified (ICD-10 - C38.3) Treated in 1997 with bleomycin, no radiation. Had pericardial and right lung involvement, requiring thoracic surgery to remove part of the right lung. CT chest 02/19/2024 shows all 3 lobes remain - appears that the medial RML was involved in the surgery given the surgical clip placement. Bleomycin is associated with pulmonary toxicity, especially with supplemental O2 therapy. However, bleomycin was administered ~27 years ago. By this time, the risk of O2 causing bleomycin-induced pulmonary toxicity is low. For now, the benefits of supplemental O2 outweigh the aforementioned risks. If he develops worsening symptoms, will need to repeat a CT chest. 04/18/2025 KAROL (obstructive sleep apnea) (ICD-10 - G47.33) This is managed by his PCP - I have no data regarding sleep studies nor compliance. 04/18/2025 History of tobacco abuse (ICD-10 - Z87.891) 3-4 ppd x 25 years, quit 1996 Patient does not meet current LDCT screening criteria. 04/18/2025 Morbid obesity (ICD-10 - E66.01) Patient's weight is inducing a restrictive pulmonary physiology. Weight loss indicated: Decrease calories, increase activity. Plan Of Treatment Medication Medication Name Sig Start Date Stop Date Notes Albuterol Sulfate HFA 108 (90 Base) MCG/ACT 2 puffs as needed for SOB Inhalation Q4H for 17 days 18gm or whatever it is ... dispense #1 inhaler Advair Diskus 500-50 MCG/ACT 1 puff Inhalation BID for 30 days 04/18/2025 Medicaid only pays for name brand Advair Incruse Ellipta 62.5 MCG/ACT 1 puff Inhalation QD for 30 days Treatment Notes Assessment Notes COPD (chronic obstructive pu lmonary disease) Due to the patient's morbid obesity decreasing the FVC, spirometry reflects a restrictive pattern - this is confirmed as TLC is technically normal @ 80%. The restriction is obscuring any underlying obstructive process such as COPD - therefore, spirometry cannot be used for diagnostic purposes for COPD. There is a moderate diffusion impairment (DLCO 58%) which can be seen in COPD/emphysema and/or CAD. He has responded some to Incruse, but remains symptomatic. Systemic steroids improve symptoms, but their effects wear soon after completing the treatment course. He had 4 ER visits within the last 6 weeks with 2 of those visits resulting in hospitalization. 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 Interestingly, the eosinophils have remained quite elevated in spite of systemic steroids (which typically depletes the eosinophil count). He is only on a LAMA. d/t the ongoing symptoms and repeated ER visits, his therapy needs intensified. Addition of LABA and ICS are indicated. Given elevated eosinophils, suspect there is a significant inflammatory process, so will add high dose ICS ([facility] no longer has FeNO testing). He states he likes the DPI Ellipta Incruse inhaler - neither Breo nor Trelegy are formulary inhalers - Will Rx Advair 500/50 Diskus @ 1 puff BID - he was counseled to rinse/gargle after use. He is to continue using Incruse @ 1 puff QD. Though COPD is likely d/t heavy smoking history in the past (3-4ppd x 25 years), will check for alpha-1 antitrypsin (AAT) deficiency. Pamphlet discussing AAT causes, testing, and potential treatment was provided to the patient. Appropriate follow-up is dependent on identified genotype. Will have patient return in ~6 weeks. If still symptomatic and/or continues to have ER visits for COPD, a biologic which targets eosinophils is indicated (e.g. Dupixent, Fasenra). Chronic respiratory failure with hypoxia [id number] performed today regarding continued need for supplemental O2. Patient was prescribed O2 @ discharge from hospital prior to establishing care with me. Counseled patient to continue using O2 for now as his breathing & respiratory status is unstable. He voiced improvement in dyspnea with use, and notices SpO2 drops into the 80's still when not weareing O2. Peripheral eosinophilia Eosinophils: -04/14/2025: 10.1% / 900 -04/04/2025: 11.4% / 1000 -03/24/2025: 12.4% / 1100 -02/21/2025: 4.9% / 500 Eosinophils remain elevated in spite of systemic steroids. Patient has eosinophilic phenotype of COPD. If he fails addition of high dose ICS Advair 500/50 on top of Incruse, next step will be biologic therapy. CAD (coronary artery disease) [facility] 01/11/2025: Moderate heavily calcified triple vessel coronary artery disease Follows with [facility] Cardiology. Current plans are to treat medically. Macrocytic anemia Review of past labs @ [facility] note a slight decrease in Hb with MCV consistently in high 90's and low 100's suggesting a mild macrocytic anemia, such as a B12 or folate deficiency. Doubt this is contributing significantly to his dyspnea. Seizure disorder, primary Controlled. Would avoid theophylline d/t risk of seizures if levels are not monitored well. There are newer and safer COPD medications without the risk of seizures to use at this point Malignant neoplasm of medias tinum, part unspecified Treated in 1997 with bleomycin, no radiation. Had pericardial and right lung involvement, requiring thoracic surgery to remove part of the right lung. CT chest 02/19/2024 shows all 3 lobes remain - appears that the medial RML was involved in the surgery given the surgical clip placement. Bleomycin is associated with pulmonary toxicity, especially with supplemental O2 therapy. However, bleomycin was administered ~27 years ago. By this time, the risk of O2 causing bleomycin-induced pulmonary toxicity is low. For now, the benefits of supplemental O2 outweigh the aforementioned risks. If he develops worsening symptoms, will need to repeat a CT chest. KAROL (obstructive sleep apnea) This is managed by his PCP - I have no data regarding sleep studies nor compliance. History of tobacco abuse 3-4 ppd x 25 years, quit 1996 Patient does not meet current LDCT screening criteria. Morbid obesity Patient's weight is inducing a restrictive pulmonary physiology. Weight loss indicated: Decrease calories, increase activity. Next Appt Details Follow Up: 6 Weeks, Reason: COPD Provider Name:Perfecto Portillo, 06/04/2025 03:00:00 PM, [address] [place], [address], Procedure Notes * Category Sub-Category Detail Notes PFT Data: 02/22/2025 - [facility] - FEV1/FVC: 85%-FEV1: 77%-FVC: 66%-Bronchodilator response: None-RV: 97%-T%-DLCO: 58% Progress Notes * Nazario CORTES JrDOB: (70 yo M)Acc No.[id number]:04/18/2025 New Patient Patient: Nazario MIDDLETON Provider: Davie Portillo DO :1955 A ge:70 Y S ex:Male Date:04/18/2025 Address:[address] [place], [place] [id number] Pcp:Jignesh Manjarrez MD Check In:10:34 AM ESTCheck O ut:11:26 AM EST Subjective: * Chief Complaints: * [facility] F/U/COPD * HPI: G eneral: NEW PATIENT 70yo male presents after hospitalization for COPD. Prior to recent events, the patient denies any history of known obstructive lung disease such as asthma or COPD. He has a significant history of smoking up to 4ppd, but quit abruptly on 04/18/1997 and never restarted. He began having some dyspnea, especially with exertion, and some crackles when he breathed. CXR suggested COPD changes and a F/U PFT was done one 02/22/2025. Spirometry was a restrictive pattern with normal TLC - likely obesity pattern as BMI >40. DLCO was moderately decreased at 48%. After the PFT, he complained that his symptoms worsened. There have been multiple ER visits for dyspnea over the past 2 months, with 2 visits leading to hospitalizations: -04/14/2025 -04/04/2025 -03/24/2025 (Hospitalized) -03/07/2025 (Hospitalized) He notes his symptoms improve when he is placed on prednisone, but several days after they are completed, the symptoms return. He has remained on supplemental O2 since the first hospitalization. A fter the second hospitalization, he was discharged on Spiriva and referred here. Spiriva was not covered and was changed to Incruse. He states it helps, denies any adverse effects, is not bothered by the DPI, but still remains symptomatic. Complains that he can't get the air out. He uses albuterol several times a week. Denies nocturnal symptoms. ? 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 Thoracic surgery was required to remove the tumor; he is unsure what exactly was done. I personally reviewed CT chest imaging from 02/19/2024 and note the surgical clips in the right anterior mediastinum. All 3 right lobes remain (i.e. he did not have a complete lobectomy). He had several rounds of bleomycin, no radiation. The following data was reviewed: PFT 02/22/2025: -Moderate restriction in spirometry with low normal lung volumes (TLC 80%) -Moderate diffusion impairment (DLCO 58%) Eosinophils: -04/14/2025: 10.1% / 900 -04/04/2025: 11.4% / 1000 -03/24/2025: 12.4% / 1100 -02/21/2025: 4.9% / 500 CBC 04/14/2025: -Hb 12.8g/dL -MCV 101.3 CT chest 02/19/2024: -No mediastinal or hilar lymphadenopathy -Left fissure lymph node -Mild-moderate subpleural scarring RML & RLL - unchanged compared to 12/31/2023 -Acute nondisplaced right 5th, possibly 4th, rib fracture(s) CT sinus 11/27/2024: -Nasal septal deviation to the right -No polyps or sinusitis [facility] 01/11/2025: -Moderate heavily calcified triple vessel disease MA Intake Comments: MA Intake: Patient is a follow-up from a recent Hospitalization. Patient is currently on 2L O2 at home. DME: [facility]. Patient complains of SOB & Cough. Patient is currently using Incruse daily and his rescue inhaler 1-2 times per day. Patient is currently on Steroids & ABX. Patient reports being seen by Oncology/Pulmonary in [place] >10 years ago. Patient denies tobacco use today. Patient is under the care of [facility] Cardiology but is not sure if he should follow up. * ROS: G eneral/Constitutional: Fever or sweats d enies. C hange of appetite d enies. C hills d enies. W eight Change d enies. H EENT: Dry mouth d enies. S ore throat d enies. O ral Ulcers d enies. P ost Nasal Drip D enies. C ongestion D enies. H oarseness?Denies. C ardiovascular: Tachycardia d enies. E kell D enies. C hest pain d enies. P alpitations d enies. R espiratory: Chest tightness c an't get the air out. P leurisy D enies. D yspnea e xertion. C ough d enies. H emoptysis d enies. W heezing d enies. G astrointestinal: Acid Reflux/GERD/Heartburn d enies. D ysphagia d enies. M usculoskeletal: Arthralgias/joint pain D enies. S kin: Easy bruising d enies. R saman d enies. ? N eurologic: Seizures d enies. T remor d enies. H ematology: Abnormal Bleeding d enies. P sychiatric: Anxiety d enies. * Active Problem List C38.3 Malignant neoplasm o f mediastinum, part unspecified Modified On:04/18/2025 Status:confirmed J96.11 Chronic respiratory failure with hypoxia Modified On:04/18/2025 Status:confirmed E66.01 Morbid obesity Modified On:04/18/2025 Status:confirmed J44.9 COPD (chronic obstru ctive pulmonary disease) Modified On:04/18/2025 Status:confirmed I25.10 CAD (coronary artery disease) Modified On:04/18/2025 Status:confirmed G47.33 KAROL (obstructive sle ep apnea) Modified On:04/18/2025 Status:confirmed D53.9 Macrocytic anemia Modified On:04/18/2025 Status:confirmed Z87.891 History of tobacco a aviva Modified On:04/18/2025W/U Status:confirmed G40.909 Seizure disorder, pr imary Modified On:04/18/2025W/U Status:confirmed D72.19 Peripheral eosinophi laura Modified On:04/18/2025/U Status:confirmed * Medical History: * Surgical History: c ataract removal cholecystectomy EGD shoulder surgery-left foot surgery-bilateral Cardiac Catheterization 01/11/2025ervical fusion/laminectomy lymph node resection carpal tunnel release chest wall biopsy lung resection-right * Hospitalization/Major Diagno stic Procedure: A cute Respiratory Failure with hypoxia-[facility] 03/24/2025 * Family History: F ather: stroke. M other: SVT. B rother(s): chronic obstructive pulmonary disease.?Sister(s): kidney cancer, diagnosed with Diabetes mellitus without mention of complication, type II or unspecified type, not stated as uncontrolled. * Social History: T obacco Use: T obacco Control (Standard) T obacco use: F ormer smoker H ow long has it been since you last smoked??Greater than 10 years A dditional Findings: Tobacco non-user E x-very heavy cigarette smoker (40+/day) Electronic Cigarette use C urrent user N o LM: Additional Tobacco Questions N umber of Years Pt Smoked: 2 5 N umber of Packs per Day: 4 When did you stop smokin years ago. M iscellaneous: A mbulatory Assistance E quipment: Juliocesar white Occupation O ccupation: R [employer] Pets: none. D rugs/Alcohol: D rugs H ave you used drugs other than those for medical reasons in the past 12 months? N o D oes the Patient have a History of Drug Abuse in the Past? N o Caffeine I ntake: 1 -2 cups per day Coffee/Diet Pepsi Do you drink alcohol?: No. Do you smoke marijuana?: Denies. * Medications: T akingAlbuterol Sulfate (2.5 MG/3ML) 0.083% Nebulization Solution Inhalation Albuterol Sulfate HFA 108 (90 Base) MCG/ACT Aerosol Solution Inhalation Aspirin 81 MG Tablet Delayed Release 1 tablet Orally Once a day Atorvastatin Calcium 10 MG Tablet TAKE 1 TABLET BY MOUTH AT BEDTIME Oral Azithromycin 250 MG Tablet TAKE 2 TABLETS by mouth today, THEN take 1 TABLET once a day FOR the next 4 DAYS. Oral Benzonatate 100 MG Capsule Oral Citalopram Hydrobromide 40 MG Tablet TAKE 1 TABLET BY MOUTH IN THE MORNING Oral Fluticasone Propionate 50 MCG/ACT Suspension instill 2 (TWO) sprays IN EACH NOSTRIL DAILY, before first use prime pump, after use clean tip and replace cap Nasal Furosemide 40 MG Tablet Oral HYDROcodone-Acetaminophen 5-325 MG Tablet TAKE 1 TABLET BY MOUTH FOUR TIMES DAILY NEEDED FOR PAIN Oral Incruse Ellipta(Umeclidinium [place]) 62.5 MCG/ACT Aerosol Powder Breath Activated INHALE 1 PUFF BY MOUTH DAILY Inhalation Meclizine HCl 25 MG Tablet Oral Methocarbamol 750 MG Tablet TAKE 1 TABLET BY MOUTH THREE TIMES DAILY NEEDED FOR MUSCLE SPASMS Oral Metoprolol Succinate ER 25 MG Tablet Extended Release 24 Hour Oral Nitroglycerin 0.4 MG Tablet Sublingual 1 tablet under the tongue and allow to dissolve as needed. Take every 5 minutes up to 3 times if chest pain persists Sublingual Three times a day PHENobarbital 32.4 MG Tablet TAKE 2 TABLETS BY MOUTH THREE TIMES DAILY Oral Phenytoin Sodium Extended 100 MG Capsule Oral predniSONE 20 MG Tablet Oral Medication List reviewed and reconciled with the patientTaking Albuterol Sulfate (2.5 MG/3ML) 0.083% Nebulization Solution Inhalation Taking Albuterol Sulfate HFA 108 (90 Base) MCG/ACT Aerosol Solution Inhalation Taking Aspirin 81 MG Tablet Delayed Release 1 tablet Orally Once a day Taking Atorvastatin Calcium 10 MG Tablet TAKE 1 TABLET BY MOUTH AT BEDTIME Oral Taking Azithromycin 250 MG Tablet TAKE 2 TABLETS by mouth today, THEN take 1 TABLET once a day FOR the next 4 DAYS. Oral Taking Benzonatate 100 MG Capsule Oral Taking Citalopram Hydrobromide 40 MG Tablet TAKE 1 TABLET BY MOUTH IN THE MORNING Oral Taking Fluticasone Propionate 50 MCG/ACT Suspension instill 2 (TWO) sprays IN EACH NOSTRIL DAILY, before first use prime pump, after use clean tip and replace cap Nasal Taking Furosemide 40 MG Tablet Oral Taking HYDROcodone-Acetaminophen 5-325 MG Tablet TAKE 1 TABLET BY MOUTH FOUR TIMES DAILY NEEDED FOR PAIN Oral Taking Incruse Ellipta(Umeclidinium [place]) 62.5 MCG/ACT Aerosol Powder Breath Activated INHALE 1 PUFF BY MOUTH DAILY Inhalation Taking Meclizine HCl 25 MG Tablet Oral Taking Methocarbamol 750 MG Tablet TAKE 1 TABLET BY MOUTH THREE TIMES DAILY NEEDED FOR MUSCLE SPASMS Oral Taking Metoprolol Succinate ER 25 MG Tablet Extended Release 24 Hour Oral Taking Nitroglycerin 0.4 MG Tablet Sublingual 1 tablet under the tongue and allow to dissolve as needed. Take every 5 minutes up to 3 times if chest pain persists Sublingual Three times a day Taking PHENobarbital 32.4 MG Tablet TAKE 2 TABLETS BY MOUTH THREE TIMES DAILY Oral Taking Phenytoin Sodium Extended 100 MG Capsule Oral Taking predniSONE 20 MG Tablet Oral Medication List reviewed and reconciled with the patient * Allergies: o xyCODONE: anaphylaxis - AllergyGabapentin: unknown - Allergy Objective: * Vitals: W t:320.2lbs, Ht:72.50in, BP:sittin/65mm Hg, Temp:Forehead:96.6F, HR:68/min, RR:18/min, BMI:42.83Index, Oxygen sat %:Oxygen 1l:94%, Ht-cm: 184.15 cm, Wt-k.24 kg. * Examination: E xam: GENERAL APPEARANCE: A ppears stated age. Skin N ormal. Nose W earing nasal cannula. Nasal septal deviation to the right. Mouth P ink and moist. Upper and lower denures. Oropharynx M allampati Class III. Trachea M idline. Chest N ormal. Respiratory D iminished breath sounds. Expiratory wheezes are present. No rhonchi. Auscultation N ormal breath sounds. Cardiac R egular rate and rhythm. Gastrointestinal I ncreased central adiposity. Vascular N o edema. Musculoskeletal N ormal posture. Neurological F ocal, intact. Psychiatric A lert and oriented x3. Mentation/Cognition N ormal. Assessment: * Assessment: 1. C OPD (chronic obstructive pulmonary disease) - J44.9 (Primary) 2 . C hronic respiratory failure with hypoxia - J96.11 3 . 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 C AD (coronary artery disease) - I25.10 5 . M acrocytic anemia - D53.9 6 . S eizure disorder, primary - G40.909 7 .?Malignant neoplasm of mediastinum, part unspecified - C38.3 8 . O SA (obstructive sleep apnea) - G47.33 9 . H istory of tobacco abuse - Z87.891 1 0. M orbid obesity - E66.01 Plan: * Treatment: 2. C hronic respiratory failure with hypoxia Notes: [id number] performed today regarding continued need for supplemental O2. Patient was prescribed O2 @ discharge from hospital prior to establishing care with me. Counseled patient to continue using O2 for now as his breathing & respiratory status is unstable. He voiced improvement in dyspnea with use, and notices SpO2 drops into the 80's still when not weareing O2. 3. P eripheral eosinophilia Notes: Eosinophils: -04/14/2025: 10.1% / 900 -04/04/2025: 11.4% / 1000 -03/24/2025: 12.4% / 1100 -02/21/2025: 4.9% / 500 Eosinophils remain elevated in spite of systemic steroids. Patient has eosinophilic phenotype of COPD. If he fails addition of high dose ICS Advair 500/50 on top of Incruse, next step will be biologic therapy. 4. C AD (coronary artery disease) Notes: [facility] 01/11/2025: Moderate heavily calcified triple vessel coronary artery disease Follows with [facility] Cardiology. Current plans are to treat medically. 5. M acrocytic anemia Notes: Review of past labs @ [facility] note a slight decrease in Hb with MCV consistently in high 90's and low 100's suggesting a mild macrocytic anemia, such as a B12 or folate deficiency. Doubt this is contributing significantly to his dyspnea. 6. S eizure disorder, primary Notes: Controlled. Would avoid theophylline d/t risk of seizures if levels are not monitored well. There are newer and safer COPD medications without the risk of seizures to use at this point 7. 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 Had pericardial and right lung involvement, requiring thoracic surgery to remove part of the right lung. CT chest 02/19/2024 shows all 3 lobes remain - appears that the medial RML was involved in the surgery given the surgical clip placement. Bleomycin is associated with pulmonary toxicity, especially with supplemental O2 therapy. However, bleomycin was administered ~27 years ago. By this time, the risk of O2 causing bleomycin-induced pulmonary toxicity is low. For now, the benefits of supplemental O2 outweigh the aforementioned risks. If he develops worsening symptoms, will need to repeat a CT chest. 8. O SA (obstructive sleep apnea) Notes: This is managed by his PCP - I have no data regarding sleep studies nor compliance. 9. H istory of tobacco abuse Notes: 3-4 ppd x 25 years, quit 1996 Patient does not meet current LDCT screening criteria. 10. M orbid obesity Notes: Patient's weight is inducing a restrictive pulmonary physiology. Weight loss indicated: Decrease calories, increase activity. * Procedures: P FT: Data: 02/22/2025 - [facility] -FEV1/FVC: 85% -FEV1: 77% -FVC: 66% -Bronchodilator response: None -RV: 97% -T% -DLCO: 58%. * Procedure Codes: * Preventive Medicine: COVID Vaccination: H as patient had COVID Vaccination? COVID Vaccination Y es 10/11/2024 Immunization Status: P neumovacc p neumovacc 23-08/05/2020. I nfluenza 1 12/11/2023. Screenings/Counseling: F ALL RISK SCREENING Fall Risk Assessment: T wo or more falls without injury in the past year Are you afraid of falling? Y es T OBACCO ACTION PLAN Patient counselled on the dangers of tobacco use and urged to quit. 0 04/18/2025 Former Education on smoking effects provided?04/18/2025 Former B MT ACTION PLAN Above Normal BMI Follow-up D ietary management education, guidance, and counseling * Disposition & Communication: A ttestation: Complex case with high level of clinical decision making given repeated ER visits for COPD, persistent eosinophilia, adding medications, discussion of biologic therapy, review of germ cell mediastinal involvement and bleomycin use along with evaluating for bleomycin-induced pulmonary toxicity, and review of multiple records. * Follow Up: 6 Weeks (Reason: COPD) * * Sign off status: Completed Visit Status: Kiara WOOD (Check Out) true * Provider: Davie Portillo DO Date: 0 04/18/2025 Generated for Zahra vela/Nathan/Kelyitting on: 0 06/02/2025 09:30 PM EDT History and Physical Notes * Examination Category Sub-Category Detail Notes Category Not es Exam GENERAL APPEARANCE: Appears stated age Skin Normal Eyes Ears Nose Wearing nasal cannul a. Nasal septal deviation to the right Mouth [place] and moist. Uppe r and lower denures Trachea Midline Chest Normal Respiratory Diminished breath so unds. Expiratory wheezes are present. No rhonchi Auscultation Normal breath sounds Cardiac Regular rate and rhy thm Gastrointestinal Increased central ad iposity Vascular No edema Musculoskeletal Normal posture Neurological Focal, intact Psychiatric Alert and oriented x 3 Mentation/Cognition Normal Oropharynx Mallampati Class III
--- OUTSIDE RECORDS SUMMARY | 2025-04-18 08:26 | XMS_ITS ---
Author Organization [facility] in [place] Address [address] [place] [address] Care Team Providers Care First Cook Name Role Phone Jignesh Manjarrez MD Primary Care Provider Unavailab Perfecto Aguirre Unavailable [phone] REASON FOR VISIT Resending Rx Medications Medication SIG (Take, Route, Frequency, Duration) Notes Start Date End Date Status Advair Diskus 500-50 MCG/ACT 1 puff Inhalation BID for 30 days Rinse after use May fill generic or Wixela if insurance mandates it. 04/18/2025 Active Encounters Encounter Location Date Provider Diagnosis Pulmonary [facility] [place] [address] [place] [address] 04/18/2025 Perfecto Portillo COPD (chronic obstructive pulmonary disease) J44.9 Assessments Encounter Date Diagnosis (ICD Code) Assessment Notes Treatment Notes Treatment Clinical Notes Section Notes 04/18/2025 COPD (chronic obstructive pulmonary disease) (ICD-10 - J44.9) Plan Of Treatment Medication Medication Name Sig Start Date Stop Date Notes Advair Diskus 500-50 MCG/ACT 1 puff Inhalation BID for 30 days 04/18/2025 May fill generic or Wixela if insurance mandates it. Next Appt Details Provider Name:Perfecto Portillo, 06/04/2025 03:00:00 PM, [address] [place], [address], Progress Notes * Nazario CORTES JrDOB: (70 yo M)Acc No.[id number]:04/18/2025 Patient: Nazario MIDDLETON Jr :1955 A ge:70 Y S ex:Male Address:[address] [place] [address], [address], [place] [address] * Refills Refill Advair Diskus Aerosol Powder Breath Activated, 500-50 MCG/ACT, Inhalation, 1 each, 1 puff, BID, 30 days, Refills=12 Subjective: * Chief Complaints: * R esending Rx * Medical History: * Surgical History: * Hospitalization/Major Diagno stic Procedure: * Medications: Objective: * Vitals: * Physical Examination: Assessment: * Assessment: 1. C OPD (chronic obstructive pulmonary disease) - J44.9 (Primary) Plan: * Treatment: * Procedure Codes: * true * Date: Generated for Zahra vela/Nathan/eTransmitting on: 0 06/02/2025 09:29 PM EDT
--- OUTSIDE RECORDS SUMMARY | 2025-05-23 13:45 | XMS_ITS | Encounter Summary ---
Author Organization [facility] Address [address] [place] [address] Care Team Providers Care Science Liaison Name Role Phone Jignesh Manjarrez MD Primary Care Provider [phone] Reason for Referral * Consultation (Routine) - Authorized Specialty Diagnoses / Procedures Referred By Yariel alvarez Referred To Contact Otolaryngology Diagnoses Deviated nasal septum Procedures MT OFFICE/OUTPATIENT [facility]3] 60 MINUTES Jignesh Manjarrez MD [address] [place] [address] Phone: tel: fax: Farida Morris MD [address] [place] [address] [place] [address] Phone: tel: fax: Referral ID Status Reason Start Date Expiration Date Visits Requested Visits Authorized [id number] Authorized Specialty Services Required 05/23/2025 11/19/2025 1 1 Reason for Visit * Reason Comments URI Follow-up Encounter Details Date Type Department Care Team (Late Contact Info) Description 05/23/2025 1:45 PM EDT [facility] [address] [place] [id number] Jignesh Manjarrez MD [address] [place] [id number] Benign essential hypertension (Primary Dx); Chronic obstructive pulmonary disease, unspecified COPD type (HCC); Chronic hypoxic respiratory failure (HCC); Major depressive disorder, recurrent episode, mild ; Degenerative lumbar spinal stenosis; Bilateral leg edema; Deviated nasal septum; Hiatal hernia with GERD without esophagitis; Neuropathy due to chemotherapeutic drug (HCC) Social History Tobacco Use Types Packs/Day Years Used Date Smoking Tobacco: Former Cigarettes 3 25.4 0 11/21/1971 - 04/18/1997 Passive Smoke Exposure: Never Smokeless Tobacco: Never Alcohol Use Standard Drinks/Week Comments Never 0 (1 standard drink = 0.6 oz pur e alcohol) B1300 Health Literacy Answer Date Recor ded How often do you need to hav e someone help you when you read instructions, pamphlets, or other written material from your doctor or pharmacy? Never 01/15/2025 Humiliation, Afraid, Rape, and Kick questionnair e Answer Date Recorded Within the last year, have y ou been afraid of your partner or ex-partner? No 12/14/2023 Within the last year, have y ou been humiliated or emotionally abused in other ways by your partner or ex-partner? No Within the last year, have y ou been kicked, hit, slapped, or otherwise physically hurt by your partner or ex-partner? No 12/14/2023 Within the last year, have y ou been raped or forced to have any kind of sexual activity by your partner or ex-partner? No 12/14/2023 Social Connection and Isolat ion Panel [NHANES] Answer Date Recorded In a typical week, how many times do you talk on the phone with family, friends, or neighbors? Three times a week 01/15/2025 How often do you get togethe r with friends or relatives? Three times a week 01/15/2025 How often do you attend chur ch or jew services? More than 4 times per year 01/15/2025 Do you belong to any clubs o r organizations such as religious groups, unions, fraternal or athletic groups, or school groups? No 01/15/2025 How often do you attend meet ings of the clubs or organizations you belong to? Never 01/15/2025 Are you , , di vorced, , never , or living with a partner? 01/15/2025 AUDIT-C Answer Date Recorded Q1: How often do you have a drink containing alcohol? Never 01/15/2025 Q2: How many drinks containi ng alcohol do you have on a typical day when you are drinking? Patient does not drink Q3: How often do you have si x or more drinks on one occasion? Never 01/15/2025 Overall Financial Resource Strain (CARDIA) Answe r Date Recorded How hard is it for you to pa y for the very basics like food, housing, medical care, and heating? Not hard at all 01/15/2025 PHQ-2 Answer Date Recorded Patient Health Questionnaire-2 Score 2 11/22/2024 [facility] - Occupational Stress Questionnaire Answer Date Recorded Do you feel stress - tense, restless, nervous, or anxious, or unable to sleep at night because your mind is troubled all the time - these days? Not at all 01/15/2025 Exercise Vital Sign Answer Date Recorde d On average, how many days pe r week do you engage in moderate to strenuous exercise (like a brisk walk)? 1 day 01/15/2025 On average, how many minutes do you engage in exercise at this level? 20 min 01/15/2025 Hunger Vital Sign Answer Date Recorded Within the past 12 months, y ou worried that your food would run out before you got the money to buy more. Never true 01/15/20 Within the past 12 months, t he food you bought just didn't last and you didn't have money to get more. Never true 01/15/2025 PRAPARE - Transportation Answer Date Re corded In the past 12 months, has l ack of transportation kept you from medical appointments or from getting medications? No 12/23 In the past 12 months, has l ack of transportation kept you from meetings, work, or from getting things needed for daily living? No 01/15/2025 Housing Stability Vital Sign Answer Trent e Recorded In the last 12 months, was t here a time when you were not able to pay the mortgage or rent on time? No 12/14/2023 Number of Places Lived in the Last Year Not on f ile 12/14/2023 In the last 12 months, was t here a time when you did not have a steady place to sleep or slept in a usp (including now)? No 12/14/2023 Housing Stability Vital Sign Answer Trent e Recorded In the last 12 months, was t here a time when you were not able to pay the mortgage or rent on time? No 01/15/2025 Number of Times Moved in the Last Year Not on fi le 01/15/2025 At any time in the past 12 m [facility], were you homeless or living in a usp (including now)? No 01/15/2025 Sex and Gender Information Value Date Recorded Sex Assigned at Not on file Legal Sex Male 11:16 PM EDT Gender Identity Not on file Sexual Orientation Not on file documented as of this encounter Last Filed Vital Signs Vital Sign Reading Time Taken Comments Blood Pressure 142/70 05/23/2025 1:45 PM EDT Pulse 82 05/23/2025 1:45 PM EDT Temperature 36.6 C (97.8 F) 05/23/2025 1:45 PM EDT Respiratory Rate 22 05/23/2025 1:45 PM EDT Oxygen Saturation 93% 05/23/2025 1:45 PM EDT Inhaled Oxygen Concentration - - Weight 145 kg (319 lb) 05/23/2025 1:45 PM EDT Height 185.4 cm (6' 1 ) 05/23/2025 1:45 PM EDT Body Mass Index 42.09 05/23/2025 1:45 PM EDT documented in this encounter Progress Notes * Jignesh Manjarrez MD - 05/23/2025 2:35 PM EDTAssociated Problem(s): Neuropathy due to chemotherapeutic drug (HCC) Continued symptoms but tolerable with neurontin and continue. * Jignesh Manjarrez MD - 05/23/2025 2:35 PM EDTAssociated Problem(s): Major depressive disorder, recurrent episode, mild Symptoms stable and continue celexa. * Jignesh Manjarrez MD - 05/23/2025 2:35 PM EDTAssociated Problem(s): Hiatal hernia with GERD without esophagitis UGI with reflux and start omeprazole. * Jignesh Manjarrez MD - 05/23/2025 2:35 PM EDTAssociated Problem(s): Deviated nasal septum Refer to new ENT. * Jignesh Manjarrez MD - 05/23/2025 2:35 PM EDTAssociated Problem(s): Degenerative lumbar spinal stenosis Pain stable and use norco PRN. Use robaxin for spasms. Continue PT exercises. * Jignesh Manjarrez MD - 05/23/2025 2:35 PM EDTAssociated Problem(s): COPD (chronic obstructive pulmonary disease) (HCC) Symptoms stable and use inhalers daily. Follow with pulmonology. * Jignesh Manjarrez MD - 05/23/2025 2:34 PM EDTAssociated Problem(s): Chronic hypoxic respiratory failure (HCC) Script signed for portable concentrator. * Jignesh Manjarrez MD - 05/23/2025 2:34 PM EDTAssociated Problem(s): Bilateral leg edema Edema stable and continue medication. Elevate legs PRN. * Jignesh Manjarrez MD - 05/23/2025 2:34 PM EDTAssociated Problem(s): Benign essential hypertension BP controlled and monitor PRN. * Jignesh Manjarrez MD - 05/23/2025 1:45 PM EDT Images from the original note were not included. Subjective Patient ID: Nathan Waddell is a 70 y.o. male who presents for URI and Follow-up. Follow up COPD, HTN, depression, back pain, edema and neuropathy. Breathing stable. Remains on oxygen and trying to get concentrator. Mild SOB with exertion. Occasional cough and sputum. Taking incruse and advair daily. Checking BP PRN and typically controlled. BP [...] Using neurontin and helps with symptoms. Edema controlled with medication. Mild swelling at end of day and if on feet a lot. Edema improved in am and with elevation. Requests new ENT. DNS for years and nose plugged. Harder to wear nasal canula due to symptoms. Seen ENT but wouldn't perform surgery. URI Pertinent negatives include no abdominal pain, chest pain, coughing, diarrhea, dysuria, nausea, vomiting or wheezing. Review of Systems Constitutional: Negative for fatigue. [...] This Visit Neuropathy due to chemotherapeutic drug ([facility]) Continued symptoms but tolerable with neurontin and continue. Degenerative lumbar spinal stenosis Pain stable and use norco PRN. Use robaxin for spasms. Continue PT exercises. Deviated nasal septum Refer to new ENT. Relevant Orders Ambulatory referral to ENT Major depressive disorder, recurrent episode, mild Symptoms stable and continue celexa. Bilateral leg edema Edema stable and continue medication. Elevate legs PRN. COPD (chronic obstructive pulmonary disease) ([facility]) Symptoms stable and use inhalers daily. Follow with pulmonology. Relevant Medications Fluticasone-Salmeterol (Advair Diskus) 500-50 MCG/ACT aerosol powder Benign essential hypertension - Primary BP controlled and monitor PRN. Chronic hypoxic respiratory failure ([facility]) Script signed for portable concentrator. Hiatal hernia with GERD without esophagitis UGI with reflux and start omeprazole. Relevant Medications omeprazole (PriLOSEC) [address] capsule documented in this encounter Plan of Treatment Upcoming Encounters Date Type Department Care Team (Late st Contact Info) Description 08/28/2025 1:00 PM EDT Office Visit [facility] [address] [place] [address] Jignesh Manjarrez MD [address] [place] [address] Scheduled Referrals Name Type Priority Associated Diagnoses Order Schedule Ambulatory referral to ENT Outpatient Referral Routine Deviated nasal septum Expected: 05/23/2025 (Approximate), Expires: 11/23/2025 documented as of this encounter Visit Diagnoses Diagnosis Benign essential hypertension- Primary Essential hypertension, benign Chronic obstructive pulmonary disease, unspecified COPD type (HCC) Chronic hypoxic respiratory failure (HCC) Major depressive disorder, recurrent episode, mild Major depressive disorder, recurrent episode, mild Degenerative lumbar spinal stenosis Spinal stenosis of lumbar region Bilateral leg edema Edema Deviated nasal septum Hiatal hernia with GERD without esophagitis Neuropathy due to chemotherapeutic drug (HCC) documented in this encounter Additional Health Concerns Assessment Noted Time PHQ-9 Depression Total Score: 5 11/22/19 25 3:00 PM EST documented as of this encounter Care Teams Science Liaison Relationship Specialty Start Date End Date Jignesh Manjarrez MD [address] [place] [address] PCP - General Family Medicine 12/15/23 documented as of this encounter
[2025-06-02] VITALS (13 sets, daily range): BP systolic 126–154; BP diastolic 67–89; PULSE 81–90; TEMP 37.8–38.8; O2SAT 89–97; BMI 42.6
--- OUTSIDE RECORDS SUMMARY | 2025-06-02 21:29 | XMS_ITS | Encounter Summary ---
Author Organization [facility] Address [address] [facility] [place] [address] Care Team Providers Care Spectacle Truer Name Role Phone Jignesh Manjarrez MD Primary Care Provider [phone] Carlos Gonzáles LPN Unavailable Unavailable Encounter Details Date Type Department Care Team (Late st Contact Info) Description 02/23/2024 Orders Only [facility] [address] [facility] [address] [place] [address] [place] [id number] Dhaval Shahid MD [address] [id number] Social History Tobacco Use Types Packs/Day Years Used Date Smoking Tobacco: Former Cigarettes Q uit: 04/18/1997 Passive Smoke Exposure: Never Smokeless Tobacco: Never Alcohol Use Standard Drinks/Week Comments Never 0 (1 standard drink = 0.6 oz pur e alcohol) Humiliation, Afraid, Rape, and Kick questionnair e [...] friends, or neighbors? Three times a week 12/14/2023 How often do you get togethe r with friends or relatives? Three times a week 12/14/2023 How often do you attend chur or baptism services? More than 4 times per year 12/14/2023 Do you belong to any clubs o r organizations such as gnosticism groups, unions, fraternal or athletic groups, or school groups? No 12/14/2023 How often do you attend meet ings of the clubs or organizations you belong to? More than 4 times per year 12/14/2023 Are you , , di vorced, , never , or living with a partner? 12/14/2023 AUDIT-C Answer Date Recorded Q1: How often do you have a drink containing alcohol? Never 12/14/2023 Q2: How many drinks containi ng alcohol do you have on a typical day when you are drinking? Patient does not drink Q3: How often do you have si x or more drinks on one occasion? Never 12/14/2023 Overall Financial Resource Strain (CARDIA) Answe r Date Recorded How hard is it for you to pa y for the very basics like food, housing, medical care, and heating? Not very hard 12/14/2023 PHQ-2 Answer Date Recorded Patient Health Questionnaire-2 Score 0 01/11/2024 [facility] - Occupational Stress Questionnaire Answer Date Recorded Do you feel stress - tense, restless, nervous, or anxious, or unable to sleep at night because your mind is troubled all the time - these days? Not at all 12/14/2023 Exercise Vital Sign Answer Date Recorde d On average, how many days pe r week do you engage in moderate to strenuous exercise (like a brisk walk)? 2 days 12/14/2023 On average, how many minutes do you engage in exercise at this level? 20 min 12/14/2023 Hunger Vital Sign Answer Date Recorded Within the past 12 months, y ou worried that your food would run out before you got the money to buy more. Never true 12/14/19 24 Within the past 12 months, t he food you bought just didn't last and you didn't have money to get more. Never true 12/14/2023 PRAPARE - Transportation Answer Date Re corded In the past 12 months, has l ack of transportation kept you from medical appointments or from getting medications? No 11/22 In the past 12 months, has l ack of transportation kept you from meetings, work, or from getting things needed for daily living? No 12/14/2023 Housing Stability Vital Sign Answer [...] place to sleep or slept in a assisted (including now)? No 12/14/2023 Sex and Gender Information Value Date Recorded Sex Assigned at Not on file Legal Sex Male 11:16 PM EDT Gender Identity Not on file Sexual Orientation Not on file documented as of this encounter Plan of Treatment Upcoming Encounters Date Type Department Care Team (Late st Contact Info) Description 08/28/2025 1:00 PM EDT [facility] [address] [place] [address] Jignesh Manjarrez MD [address] [place] [address] documented as of this encounter Procedures Procedure Name Priority Date/Time Associated Diagnosis Comments XR CHEST 1 VIEW Routine 02/23/2024 2:13 PM EDT documented in this encounter Results * XR chest 1 view (02/23/2024 2:13 PM EDT) Anatomical Region Laterality Modality Chest Radiographic Kizzy ging us Dhaval Shahid MD IMG XR PROCEDURES Final Res ult documented in this encounter Visit Diagnoses Not on filedocumented in this encounter Additional Health Concerns Assessment Noted Time PHQ-9 Depression Total Score: 8 11/29/19 24 1:28 PM EST documented as of this encounter Care Teams Spectacle Truer Relationship Specialty Start Date End Date Jignesh Manjarrez MD [address] [place] [address] PCP - General Family Medicine 12/15/23 Carlos Gonzáles LPN Licensed Practical Nurse Family Medicine 03/12/24 documented as of this encounter
--- OUTSIDE RECORDS SUMMARY | 2025-06-02 21:29 | XMS_ITS | Clinical Summary ---
Author Organization [facility] Address [address] [place] [address] Care Team Providers Care Timber Management Assistant Name Role Phone Jignesh Manjarrez MD Primary Care Provider [phone] Allergies Active Allergy Reactions Criticality Noted Date Comments Gabapentin Unknown 01/29/2020 Oxycodone Angioedema,Unknown Medium 01/29/2020 Phenytoin Unknown 05/20/2023 Medications aspirin 81 MG EC tablet Take 1 tablet by mouth in the morning. Active nitroglycerin (Nitrostat) 0.3 MG SL tabletIndications :Coronary arteriosclerosis, Chest pain due to CAD Place 1 tablet (0.3 mg) under the tongue every 5 (five) minutes if needed for chest pain 30 tablet 024 Active methocarbamol (Robaxin) 750 MG tabletIndications :Chronic pain of right knee TAKE 1 TABLET BY MOUTH THREE TIMES DAILY NEEDED MUSCLE SPASM 42 tablet 024 Active albuterol HFA 90 mcg/act inhalerIndication s:SOB (shortness of breath) on exertion Inhale 2 puffs every 4 (four) hours if needed for shortness of breath or wheezing 18 g 2 025 Active citalopram (CeleXA) 40 MG tabletIndications :Major depressive disorder, recurrent episode, mild TAKE 1 TABLET BY MOUTH IN THE MORNING 30 tablet 5 025 Active PHENobarbital (Luminal) 32.4 MG tabletIndications :Seizure disorder (HCC) Take 2 tablets (64.8 mg) by mouth in the morning and 2 tablets (64.8 mg) in the evening and 2 tablets (64.8 mg) before bedtime. 180 tablet 5 Active phenytoin ER (Dilantin) 100 MG capsuleIndication s:Seizure disorder (HCC) TAKE 2 CAPSULES BY MOUTH IN THE MORNING, then TAKE 2 CAPSULES BY MOUTH IN THE EVENING and then TAKE 2 CAPSULES BY MOUTH BEFORE bedtime 1080 capsule 2 2025 Active metoprolol succinate XL (Toprol-XL) 25 MG 24 hr tablet Take 25 mg by mouth Daily Active triamcinolone (Kenalog) 0.5 % creamIndications: Dyshidrotic eczema Apply topically 3 (three) times a day 60 g Active fluticasone (Flonase) 50 MCG/ACT nasal sprayIndications: Chronic rhinosinusitis INSERT 2 (TWO) sprays in EACH nostril ONCE DAILY; Before first use, prime pump; After use, clean tip and replace cap 16 g Active albuterol (2.5 MG/3ML) 0.083% nebulizer solutionIndicatio ns:Chronic obstructive pulmonary disease, unspecified COPD type ([facility]) Take 3 mL (2.5 mg) by nebulization every 4 (four) hours if needed for wheezing or shortness of breath 150 mL Active Umeclidinium [place] (Incruse Ellipta) 62.5 MCG/ACT aerosol powderIndications :Chronic obstructive pulmonary disease, unspecified COPD type ([facility]) Inhale 1 puff Daily 30 each 5 025 Active furosemide (Lasix) 40 MG tabletIndications :Bilateral leg edema TAKE 1 TABLET BY MOUTH DAILY NEEDED 30 tablet 3 025 Active meclizine (Antivert) 25 MG tabletIndications :Dizziness TAKE 1 TABLET BY MOUTH FOUR TIMES DAILY (IN THE MORNING, at noon, IN THE EVENING and BEFORE bedtime) 30 tablet 025 Active atorvastatin (Lipitor) 10 MG tabletIndications :Dyslipidemia Take 1 tablet (10 mg) by mouth at bedtime 100 tablet 3 025 2025 Active spironolactone (Aldactone) 25 MG tabletIndications :Bilateral leg edema TAKE 1 TABLET BY MOUTH DAILY 30 tablet 3 025 Active Fluticasone-Salme terol (Advair Diskus) 500-50 MCG/ACT aerosol powderIndications :Chronic obstructive pulmonary disease, unspecified COPD type (HCC) Inhale 1 puff every 12 (twelve) hours Active omeprazole (PriLOSEC) [address] capsuleIndication s:Hiatal hernia with GERD without esophagitis Take 1 capsule (40 mg) by mouth Daily before meals Do not crush or chew. 30 capsule 5 025 Active atorvastatin (Lipitor) 10 MG tabletIndications :Dyslipidemia Take 1 tablet (10 mg) by mouth at bedtime 100 tablet 3 024 2024 Discontinued(R eorder) meclizine (Antivert) 25 MG tabletIndications :Dizziness TAKE 1 TABLET BY MOUTH FOUR TIMES DAILY (IN THE MORNING, at noon, IN THE EVENING and BEFORE bedtime) 30 tablet 3 025 2024 Discontinued spironolactone (Aldactone) 25 MG tabletIndications :Bilateral leg edema Take 1 tablet (25 mg) by mouth Daily 30 tablet 3 025 2024 Discontinued Advair Diskus 500-50 MCG/ACT aerosol powder 1 puff every 12 (twelve) hours 025 2024 Discontinued Active Problems Problem Noted Date Diagnosed Date Hiatal hernia with GERD without esophagitis 04/2025 Assessment & Plan (05/23/2025 2:35 PM EDT): UGI with reflux and start omeprazole. Assessment & Plan (04/26/2025 12:38 PM EDT): Problems swallowing and check UGI. Chronic hypoxic respiratory failure 04/02/2025 Assessment & Plan (05/23/2025 2:34 PM EDT): Script signed for portable concentrator. Assessment & Plan (04/26/2025 12:37 PM EDT): Wean oxygen as tolerated. Assessment & Plan (04/02/2025 12:37 PM EDT): Wean oxygen as tolerated. Benign essential hypertension 02/20/2025 Assessment & Plan (05/23/2025 2:34 PM EDT): BP controlled and monitor PRN. Assessment & Plan (02/20/2025 2:15 PM EDT): BP controlled and monitor PRN. COPD (chronic obstructive pulmonary disease) 01/2025 Assessment & Plan (05/23/2025 2:35 PM EDT): Symptoms stable and use inhalers daily. Follow with pulmonology. Assessment & Plan (04/26/2025 12:38 PM EDT): Symptoms improved after treatment and monitor. Use inhalers daily. Follow with pulmonology. Will arrange for home hospital bed in order to elevate head while sleeping due to SOB. Assessment & Plan (04/03/2025 2:40 PM EDT): Symptoms improved after treatment and monitor. Use inhalers daily. Script for nebulizer machine to patient and use albuterol nebs PRN. Assessment & Plan (02/20/2025 2:16 PM EDT): Signs of COPD and check PFTs. Use albuterol PRN. Assessment & Plan (01/21/2025 2:20 PM EST): Signs of COPD and check PFTs. Start albuterol PRN. Medicare annual wellness visit, subsequent 11/22 Assessment & Plan (11/22/2024 4:22 PM EST): Due for labs. Scheduled for consult with surgeon for colonoscopy. Discussed proper diet and regular aerobic exercise. Need aerobic exercise 5-6 days a week for 30 minutes at a time. Smaller portions and limit total calories. Tetanus every 10 years. Advised not to smoke. Chronic rhinosinusitis 10/25/2024 Assessment & Plan (10/25/2024 5:12 PM EST): Continued congestion and nose plugged. Start flonase and check CT sinuses. Internal derangement of right knee 10/25/2024 Assessment & Plan (10/25/2024 5:13 PM EST): Increased pain after fall and very unsteady. X-ray with mild degenerative changes. Pain getting worse and likely with meniscal injury. Check MRI knee and will need to see ortho. Start prednisone. Use norco PRN. Ice PRN. Chronic pain of right knee 10/25/2024 Assessment & Plan (10/25/2024 5:13 PM EST): Increased pain after fall and very unsteady. X-ray with mild degenerative changes. Pain getting worse and likely with meniscal injury. Check MRI knee and will need to see ortho. Start prednisone. Use norco PRN. Ice PRN. KAROL (obstructive sleep apnea) 02/21/2024 Assessment & Plan (05/21/2024 3:47 PM EDT): Scheduled for titration study. Assessment & Plan (02/21/2024 2:32 PM EDT): Prior CPAP machine but not for years and symptoms getting worse. Need new titration study. Bilateral leg edema 02/21/2024 Assessment & Plan (05/23/2025 2:34 PM EDT): Edema stable and continue medication. Elevate legs PRN. Assessment & Plan (02/20/2025 2:16 PM EDT): Edema worse and add aldactone. Stop potassium and continue lasix. Elevate legs PRN. Assessment & Plan (05/21/2024 3:46 PM EDT): Edema stable with lasix and continue. Elevate legs PRN. Take potassium if taking lasix. Assessment & Plan (02/21/2024 2:29 PM EDT): Recent edema and start lasix. Elevate legs PRN. Take potassium if taking lasix. Encounter for long-term current use of medicatio n 11/29/2023 Screening PSA (prostate specific antigen) 2023 Deviated nasal septum 10/26/2023 Assessment & Plan (05/23/2025 2:35 PM EDT): Refer to new ENT. Dyslipidemia 10/26/2023 Major depressive disorder, recurrent episode, mi ld 10/26/2023 Assessment & Plan (05/23/2025 2:35 PM EDT): Symptoms stable and continue celexa. Assessment & Plan (02/20/2025 2:16 PM EDT): Symptoms stable and continue celexa. Assessment & Plan (11/22/2024 4:23 PM EST): Symptoms stable and continue celexa. Assessment & Plan (05/21/2024 3:46 PM EDT): Symptoms stable and continue celexa. Assessment & Plan (02/21/2024 2:31 PM EDT): Symptoms stable and continue celexa. Assessment & Plan (01/11/2024 3:04 PM EST): Currently on Celexa. He was started on Wellbutrin last trev by his PCP - stopped this appointment as he has hx of seizure disorder and also because, he started experiencing chest pain since he was put on Wellbutrin Will hold off adding medications and monitor on Celexa. Follow up in one month with Dr Manjarrez - to re-assess his depression Assessment & Plan (11/29/2023 1:57 PM EST): Symptoms worse and add wellbutrin in addition to celexa. Malignant neoplasm of urinary bladder 10/26/2023 Assessment & Plan (11/22/2024 4:23 PM EST): Follow up with urology. Assessment & Plan (02/21/2024 2:33 PM EDT): Follow up with urology. Seizure disorder 10/26/2023 Assessment & Plan (11/22/2024 4:23 PM EST): Continue medication. Neuropathy due to chemotherapeutic drug 08/04/20 Assessment & Plan (05/23/2025 2:35 PM EDT): Continued symptoms but tolerable with neurontin and continue. Assessment & Plan (02/20/2025 2:16 PM EDT): Continued symptoms but tolerable with neurontin and continue. Assessment & Plan (05/21/2024 3:46 PM EDT): Continued symptoms but tolerable with neurontin and continue. Assessment & Plan (02/21/2024 2:32 PM EDT): Continued symptoms but tolerable with neurontin and continue. Assessment & Plan (11/29/2023 1:57 PM EST): Continued symptoms but tolerable with neurontin and continue. Degenerative lumbar spinal stenosis 08/04/2023 Assessment & Plan (05/23/2025 2:35 PM EDT): Pain stable and use norco PRN. Use robaxin for spasms. Continue PT exercises. Assessment & Plan (02/20/2025 2:16 PM EDT): Pain stable and use norco PRN. Use robaxin for spasms. Continue PT exercises. Assessment & Plan (10/25/2024 5:13 PM EST): Pain stable and use norco PRN. Use robaxin for spasms. Continue PT exercises. Assessment & Plan (05/21/2024 3:46 PM EDT): Pain stable and use norco PRN. Use robaxin for spasms. Continue PT exercises. Assessment & Plan (02/21/2024 2:31 PM EDT): Pain stable and use norco PRN. Use robaxin for spasms. Continue PT exercises. Assessment & Plan (12/15/2023 4:42 PM EST): Pain and radicular symptoms getting worse causing weakness and falls. MRI May 2023 abnormal. Refer to [facility] for second opinion. Continue PT exercises. Assessment & Plan (11/29/2023 1:56 PM EST): Pain unchanged and continue PT exercises. Use OTC PRN. Class 3 severe obesity due t o excess calories with serious comorbidity and body mass index (BMI) of 40.0 to 44.9 in adult 01/12/2021 Assessment & Plan (11/22/2024 4:22 PM EST): Weight loss indicated. Coronary artery disease invo lving [place] coronary artery of [place] heart without angina pectoris 07/21/2020 Assessment & Plan (01/21/2025 2:20 PM EST): Symptoms improved with medication change and follow with cardiology. Assessment & Plan (01/11/2024 3:00 PM EST): Non obs CAD based on C Performed in 2008. Recent hospital admission for Chest pain - resolved. Scheduled for outpatient Lexiscan. On ASA, statin. Occasional chest pain since hospital discharge. Patient educated on worrisome signs and symptoms and to go to ED if persistent chest pain despite using SL nitroglycerin . Resolved Problems Problem Noted Date Diagnosed Date Resolved Date Lumbar spondylosis 05/21/2024 Closed fracture of multiple ribs of right side with routine healing 02/21/2024 05/21/2024 Assessment & Plan (02/21/2024 2:31 PM EDT): Recent fracture and continued pain. Warned will take time to heal. Use norco PRN. Hospital discharge follow-up 01/11/2024 02/21/2024 Assessment & Plan (01/11/2024 3:05 PM EST): Patient here for follow up after recent hospital admission at [facility] Reviewed hospital records. Answered patient's questions and concerns related to hospital stay/medication changes/results of testing. Scheduled for Lexiscan. Chest pain due to CAD 01/11/20242024 Assessment & Plan (01/11/2024 3:02 PM EST): Recent hospital admission for Chest pain. Negative cardiac enzymes. Remained CP during hospital stay. Has outpatient Lexiscan scheduled. On ASA, statin Called in SL nitroglycerin as needed for CP. His symptoms started after he was prescribed Wellbutrin for depression and its very possible that his symptoms are due to Wellbutirn - patient asked to stop Wellbutrin. Syncope and collapse 10/26/2023 024 Encounters Date Type Department Care Team Description 05/23/2025 1:45 PM EDT Office Visit [facility] [address] [place] [phone] Jignesh Manjarrez MD Benign essential hypertension (Primary Dx); Chronic obstructive pulmonary disease, unspecified COPD type (HCC); Chronic hypoxic respiratory failure (HCC); Major depressive disorder, recurrent episode, mild ; Degenerative lumbar spinal stenosis; Bilateral leg edema; Deviated nasal septum; Hiatal hernia with GERD without esophagitis; Neuropathy due to chemotherapeutic drug (HCC) 05/23/[address] [facility] [address] [place] [address] Jignesh Manjarrez MD 05/21/[address] [facility] [address] [place] [address] Jignesh Manjarrez MD 05/20/[address] [facility] [address] [place] [phone] Jignesh Manjarrez MD Bilateral leg edema 05/16/2025 Results Follow-Up [facility] [address] [place] [address] Jignesh Manjarrez MD 05/15/2025 External Result Encounter [facility] [address] [place] [address] Jignesh Manjarrez MD 05/13/2025 Refill [facility] [address] [place] [address] Jignesh Manjarrez MD Dizziness; Dyslipidemia 04/30/2025 Refill [facility] [address] [place] [address] Jignesh Manjarrez MD Bilateral leg edema 04/30/2025 Refill [facility] [address] [place] [address] Jignesh Manjarrez MD 04/26/2025 11:45 AM EDT Office Visit [facility] [address] [place] [address] Jignesh Manjarrez MD Chronic obstructive pulmonary disease, unspecified COPD type (HCC) (Primary Dx); Chronic hypoxic respiratory failure (HCC); Dysphagia, unspecified type 04/25/2025 9:00 AM EDT Clinical Support [facility] [address] [place] [phone] Chari Mckinney CCC-A Sensorineural hearing loss, bilateral (Primary Dx) 04/25/2025 Bamboo flowsheet [facility] [address] [place] [phone] Chari Mckinney CCC-A 04/23/2025 Abstract [facility] [address] [place] [address] Jignesh Manjarrez MD 04/16/2025 Telephone [facility] [address] [place] [address] Jignesh Manjarrez MD 04/08/2025 Abstract [facility] [address] [place] [address] Jignesh Manjarrez MD 04/03/2025 Telephone [facility] [address] [place] [address] Jignesh Manjarrez MD 04/03/[address] [facility] [facility] [address] [place] [address] Jignesh Manjarrez MD Error (VOID this visit) 04/02/2025 3:15 PM EDT Office Visit [facility] [address] [place] [address] Jignesh Manjarrez MD Chronic obstructive pulmonary disease with acute exacerbation (HCC) (Primary Dx); Chronic hypoxic respiratory failure (HCC) 04/02/[address] [facility] [facility] [address] [place] [phone] Jignesh Manjarrez MD 03/28/2025 Telephone [facility] [address] [place] [address] Jignesh Manjarrez MD 03/27/2025 Telephone [facility] [address] [place] [address] Jignesh Manjarrez MD Med Refill 03/25/[address] [facility] [facility] [address] [place] [address] Jignesh Manjarrez MD Med Refill 03/19/[address] [facility] [facility] [address] [place] [address] Jignesh Manjarrez MD 03/08/2025 Clinisync Result Encounter [facility] External [facility] Unsolicited Provider, Generic External Data 03/07/2025 Clinisync Result Encounter [facility] External Department Unsolicited Mariana Mazariegos PA from Last 3 Months Immunizations Immunization Administration Dates Next Due Influenza, High-dose Seasona l, Quadrivalent, Preservative Free 08/21/2022 Influenza, Seasonal, Quadrivalent, Adjuvanted ,08/06/2021 Influenza, injectable, quadrivalent, preservativ e free 08/05/2020,08/24/2019 Influenza, seasonal, injectable 09/03/2019 Moderna SARS-CoV-2 Vaccination 02/25/2021 Pneumococcal Polysaccharide PPSV23 08/05/2020 Family History Medical History Relation Name Comments Diabetes Father Nazario Stroke Father Nazario Cancer Mother Catina Heart disease Mother Catina Cancer Sister Gurpreet Diabetes Sister Gurpreet Relation Name Status Comments Father Nazario Mother Catina Sister Gurpreet Social History Tobacco Use Types Packs/Day Years Used Date Smoking Tobacco: Former Cigarettes 3 25.4 0 11/21/1971 - 04/18/1997 Passive Smoke Exposure: Never Smokeless Tobacco: Never Tobacco Cessation:Counseling Given: Not Answered Alcohol Use Standard Drinks/Week Comments Never 0 [...] often do you attend chur ch or hinduism services? More than 4 times per year 01/15/2025 Do you belong to any clubs o r organizations such as buddhist groups, unions, fraternal or athletic groups, or [...] Recorded Patient Health Questionnaire-2 Score 2 11/22/2024 [facility] - Occupational Stress [...] place to sleep or slept in a fci (including now)? No 12/14/2023 Housing Stability Vital Sign Answer Trent e Recorded In the last 12 months, was t here a time when you were not able to pay the mortgage or rent on time? No 01/15/2025 Number of Times Moved in the Last Year Not on fi le 01/15/2025 At any time in the past [address] [facility], were you homeless or living in a fci (including now)? No 01/15/2025 Sex and Gender Information Value Date Recorded Sex Assigned at Not on file Legal Sex Male 11:16 PM EDT Gender Identity Not on file Sexual Orientation Not on file Last Filed Vital Signs Vital Sign Reading [...] Mass Index 42.09 05/23/2025 1:45 PM EDT Plan of Treatment Upcoming Encounters Date Type Department Care Team (Late st Contact Info) Description 08/28/2025 1:00 PM EDT Office Visit [facility] [address] [place] [phone] Jignesh Manjarrez MD [address] [place] [phone] Health Maintenance Due Date Last Done Comments CT Colonography 1955 FIT-DNA 1955 FIT 1955 FOBT 1955 Sigmoidoscopy 1955 Pneumococcal Vaccine: 65+ Ye ars (2 of 2 - PCV) 08/05/2021 08/05/2020 Influenza Vaccine (#1) 2025 , 11/04/2023, 08/21/2022, Additional history exists Medicare Annual Wellness (AWV) 11/22/2025 11/22/2024 Colonoscopy 12/11/2034 12/11/2024 Colorectal Cancer Screening 12/11/2034 Procedures Procedure Name Priority Date/Time Associated Diagnosis Comments FLUORO UGI WITH ESOPHAGUS 05/15/2025 2:44 PM EDT RESULT 4 Routine 03/08/2025 8:00 AM EDT RESULT 3 Routine 03/08/2025 8:00 AM EDT RESULT 2 Routine 03/08/2025 8:00 AM EDT RESULT 1 Routine 03/08/2025 8:00 AM EDT EPITHELIAL CELLS Routine 03/08/2025 8:00 AM EDT WHITE BLOOD CELLS Routine 03/08/2025 8:0 0 AM EDT LOWER RESPIRATORY CULTURE Routine 03/08/2025 8:00 AM EDT GRAM STAIN EVALUATION Routine 03/08/2025 8:00 AM EDT ECG 12-LEAD 03/07/2025 8:12 PM EDT COLONOSCOPY Routine 12/11/2024 10:20 AM EST from Last 3 Months or Most Recently Relevant to Health Maintenance Results * FLUORO UGI WITH ESOPHAGUS (05/15/2025 2:44 PM EDT) Anatomical Region Laterality Modality Radiographic Kizzy ging 05/15/2025 2:44 PM EDT Narrative 05/15/2025 2:43 PM EDT THIS EXAM WAS PERFORMED AT [facility] History: Chronic dysphasia. Exam/Technique: Double contrast upper GI exam. The patient ingested effervescent granules, thick and thin barium in the upright and recumbent positions. 1.7 minutes of fluoroscopy time was utilized. Total images: 16 Reference air kerma 82.6 Comparison: None Findings: Cervical spinal hardware present with posterior fusion C3-C5 levels and anterior fusion C5-C7. Additional surgical clips are present overlying the mid thorax and adjacent to the lower esophagus. Correlate with relevant history. No evidence of Zenker's diverticulum or significant focal prominence of the cricopharyngeus muscle. Reflux lower third of esophagus noted as well as small hiatal hernia. Gastric contour is normal. No mucosal lesions, ulceration or inflammation. Duodenal sweep is retroperitoneal. The ligament Treitz in left upper quadrant. Small duodenal diverticulum extending medially from the second portion. IMPRESSION: * Reflux to lower third of esophagus and small hiatal hernia. Finalized by Westley Motley DO on 05/15/2025 2:43 PM Procedure Note Radiology, Radiologist, - 05/16/2025 THIS EXAM WAS PERFORMED AT [facility] History: Chronic dysphasia. Exam/Technique: Double contrast upper GI exam. The patient ingestedeffervescent granules, thick and thin barium in the upright and recumbentpositions. 1.7 minutes of fluoroscopy time was utilized. Total images: 16 Reference air kerma 82.6 Comparison: None Findings: Cervical spinal hardware present with posterior fusion C3-C5 levels andanterior fusion C5-C7. Additional surgical clips are present overlying the mid thorax andadjacent to the lower esophagus. Correlate with relevant history. No evidence of Zenker's diverticulum or significant focal prominence ofthe cricopharyngeus muscle. Reflux lower third of esophagus noted as well as small hiatal hernia. Gastric contour is normal. No mucosal lesions, ulceration orinflammation. Duodenal sweep is retroperitoneal. The ligament Treitz in left upperquadrant. Small duodenal diverticulum extending medially from the second portion. IMPRESSION: * Reflux to lower third of esophagus and small hiatal hernia. Finalized by Westley Motley DO on 05/15/2025 2:43 PM Jignesh Manjarrez MD IMG XR PROCEDURES Final Result * LOWER RESPIRATORY CULTURE (03/08/2025 8:00 AM EDT) LOWER RESPIRATORY CULTURE Lower Respiratory Culture WILL FOLLOW [facility] LOWER RESPIRATORY CULTURE Routine respiratory angelic [facility] LOWER RESPIRATORY CULTURE Performed at: [facility]OWER RESPIRATORY CULTURE [address], [place] [id number] [facility] LOWER RESPIRATORY CULTURE Associate Store Manager: Jl Solano PhD, Phone: [phone] [facility] 03/08/2025 8:00 AM EDT 03/08/2025 8:35 AM EDT Narrative [facility] - 03/11/2025 5:07 PM EDT us Generic External Data Provider LAB BLOOD ORDERAB LES Final Result Performing Organization Address City/[facility]/ZIP Co de Phone Number [facility] * GRAM STAIN EVALUATION (03/08/2025 8:00 AM EDT) GRAM STAIN EVALUATION Gram Stain Evaluation This specimen is of good quality and is acceptable for routine [facility] GRAM STAIN EVALUATION bacterial culture. [facility] 03/08/2025 8:00 AM EDT 03/08/2025 8:35 AM EDT Narrative [facility] - 03/11/2025 5:07 PM EDT us Generic External Data Provider LAB BLOOD ORDERAB LES Final Result Performing Organization Address City/[facility]/ZIP Co de Phone Number [facility] * RESULT 4 (03/08/2025 8:00 AM EDT) RESULT 4 Result 4 UNDERCOVER OPERATOR [facility] 03/08/2025 8:00 AM EDT 03/08/2025 8:35 AM EDT Narrative [facility] - 03/11/2025 5:07 PM EDT us Generic External Data Provider LAB BLOOD ORDERAB LES Final Result Performing Organization Address City/[facility]/ZIP Co de Phone Number [facility] * RESULT 3 (03/08/2025 8:00 AM EDT) RESULT 3 Result 3 UNDERCOVER OPERATOR [facility] 03/08/2025 8:00 AM EDT 03/08/2025 8:35 AM EDT Narrative [facility] - 03/11/2025 5:07 PM EDT us Generic External Data Provider LAB BLOOD ORDERAB LES Final Result Performing Organization Address [facility]/ZIP Co de Phone Number [facility] * RESULT 2 (03/08/2025 8:00 AM EDT) RESULT 2 Result 2 Few gram positive rods. [facility] 03/08/2025 8:00 AM EDT 03/08/2025 8:35 AM EDT Narrative [facility] - 03/11/2025 5:07 PM EDT us Generic External Data Provider LAB BLOOD ORDERAB LES Final Result Performing Organization Address [facility] de Phone Number CLINISYNC TBH * RESULT 1 (03/08/2025 8:00 AM EDT) RESULT 1 Result 1 Many gram positive cocci. TBH 03/08/2025 8:00 AM EDT 03/08/2025 8:35 AM EDT Narrative CLINISYNC - 03/11/2025 5:07 PM EDT us Generic External Data Provider LAB BLOOD ORDERAB LES Final Result Performing Organization Address [facility] Co de Phone Number CLINVERONANC TB * EPITHELIAL CELLS (03/08/2025 8:00 AM EDT) EPITHELIAL CELLS Epithelial Cells Moderate TBH 03/08/2025 8:00 AM EDT 03/08/2025 8:35 AM EDT Narrative CLINISYNC - 03/11/2025 5:07 PM EDT us Generic External Data Provider LAB BLOOD ORDERAB LES Final Result Performing Organization Address [facility] Co de Phone Number CLINISYNC TB * WHITE BLOOD CELLS (03/08/2025 8:00 AM EDT) WHITE BLOOD CELLS White Blood Cells TBH WHITE BLOOD CELLS Many TBH 03/08/2025 8:00 AM EDT 03/08/2025 8:35 AM EDT Narrative JOANN - 03/11/2025 5:07 PM EDT us Generic External Data Provider LAB BLOOD ORDERAB LES Final Result [facility] * ECG 12-LEAD (03/07/2025 8:12 PM EDT) Anatomical Region Laterality Modality Other 03/07/2025 8:12 PM EDT Narrative 03/08/2025 11:52 [place] [address] Electrocardiograph Report Signed Patient: NAZARIO CORTES Jr. MR#: [id number] : 1955 Acct:[id number] Age/Sex: 70 / M ADM Date: 03/07/25 Loc: [place] 219-[address]: Anson Manriquez M.D. Ordering Physician: Mariana Mazariegos Date of Service: 03/07/25 Procedure(s): ECG 12 lead Accession Number(s): [id number] cc: [facility] Test Date: 2025-03-07 Pat Name: NAZARIO CORTES Department: Room: - Gender: Male Store Protection Specialist: : 1955 Requested By: 0923 Order Number: [id number] Reading MD: COLE MOREIRA M.D. Measurements Intervals [place] Rate: 78 P: 49 [place]: 174 QRS: 16 QRSD: 84 T: 40 QT: 380 QTc: 414 Interpretive Statements 1100 Sinus rhythm 9110 normal ECG Compared to ECG 02/21/2025 11:34:46 No significant changes Electronically Signed On 03-08-2025 11:51:46 EDT by COLE MOREIRA M.D. Dictated By: COLE MOREIRA Signed By: 03/08/25 1152 DD/ 11 TD/TT: Surgical Tech: Procedure Note Radiology, Radiologist, MD - 03/08/[address] [address] Electrocardiograph Report Signed Patient: NAZARIO CORTES Jr.MR#: [id number] : 5Acct:[id number] Age/Sex: 70 / MADM Date: 03/07/25 Loc: [place] 219-[address]: Anson Manriquez M.D. Ordering Physician: Mariana Mazariegos Date of Service: 03/07/25 Procedure(s): ECG 12 lead Accession Number(s): [id number] cc: [facility] Test Date: 2025-03-07 Pat Name: NAZARIO CORTES Department: Room: - Gender: Male Store Protection Specialist: : 1955 Requested By: 0923 Order Number: [id number] Reading MD: COLE MOREIRA M.D. Measurements Intervals [place] Rate: 78 P: 49 [place]: 174 QRS: 16 QRSD: 84 T: 40 QT: 380 QTc: 414 Interpretive Statements 1100 Sinus rhythm 9110 normal ECG Compared to ECG 02/21/2025 11:34:46 No significant changes Electronically Signed On 03-08-2025 11:51:46 EDT by COLE MOREIRA M.D. Dictated By: COLE MOREIRA Signed By:03/08/251151 DD/ 11 TD/TT: Surgical Tech: us Mariana ALANIS CLINISYNC IMAGING Final Result * Colonoscopy (12/11/2024 10:20 AM EST) Anatomical Region Laterality Modality Endoscopy us Esteban Sprague DO ENDOSCOPY PROCEDURE ORDERABLES F inal Result from Last 3 Months or Most Recently Relevant to Health Maintenance Insurance AETNA MEDICARE ADVANTAGE MEDICAID [place] Care Teams Timber Management Assistant Relationship Specialty Start Date End Date Jignesh Manjarrez MD [address] [place] [address] PCP - General Family Medicine 12/15/23
--- OUTSIDE RECORDS SUMMARY | 2025-06-02 21:29 | XMS_ITS | Encounter Summary ---
Author Organization [facility] Address [address] [place] [address] Care Team Providers Care Document Controller Name Role Phone Jignesh Manjarrez MD Primary Care Provider [phone] Carlos Gonzáles LPN Unavailable Unavailable Encounter Details Date Type Department Care Team (Late st Contact Info) Description 02/20/2024 Orders Only [facility] [address] [place] [address] Jignesh Manjarrez MD [address] [place] [address] Social History Tobacco Use Types Packs/Day Years [...] How often do you attend chur or worship services? More than 4 times per year 12/14/2023 Do you belong to any clubs o r organizations such as protestant groups, unions, fraternal or athletic groups, or [...] Recorded Patient Health Questionnaire-2 Score 0 01/11/2024 [facility] Occupat ional Health - Occupational [...] money to buy more. Never true 12/14/19 Within the past 12 months, t he [...] place to sleep or slept in a group home (including now)? No 12/14/2023 Sex and Gender Information Value Date Recorded Sex Assigned at Not on file Legal Sex Male 11:16 PM EDT Gender Identity Not on file Sexual Orientation Not on file documented as of this encounter Plan of Treatment Upcoming Encounters Date Type Department Care Team (Late st Contact Info) Description 08/28/2025 1:00 PM EDT [facility] [address] [place] [address] Jignesh Manjarrez MD [address] [place] [address] documented as of this encounter Procedures Procedure Name Priority Date/Time Associated Diagnosis Comments CT ABDOMEN PELVIS WO IV CONTRAST Routine 02/20/2024 8:32 AM EDT documented in this encounter Results * CT abdomen pelvis wo IV contrast (02/20/2024 8:32 AM EDT) Anatomical Region Laterality Modality Body, Pelvis, Abdomen Computed T omography Jignesh Manjarrez MD IM CT PROCEDURES Final Result documented in this encounter Visit Diagnoses Not on filedocumented in this encounter Additional Health Concerns Assessment Noted Time PHQ-9 Depression Total Score: 8 11/29/19 24 1:28 PM EST documented as of this encounter Care Teams Document Controller Relationship Specialty Start Date End Date Jignesh Manjarrez MD [address] [place] [address] PCP - General Family Medicine 12/15/23 Carlos Gonzáles LPN Licensed Practical Nurse Family Medicine 03/12/24 documented as of this encounter
--- OUTSIDE RECORDS SUMMARY | 2025-06-02 21:29 | XMS_ITS ---
Author Organization [employer] tem Address [id number] [address] 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 Past Treatment and Therapy Plans No past plan information found. Lifetime Dose Tracking * Chemical Lifetime Dose Automatic Entry Manual Entr y Fluoroscopy 82.6 mGy 82.6 mGy 0 mGy
--- OUTSIDE RECORDS SUMMARY | 2025-06-02 21:29 | XMS_ITS | Encounter Summary ---
Author Organization [facility] Address [address] [place] [address] Care Team Providers Care Table Assembler Name Role Phone Jignesh Manjarrez MD Primary Care Provider [phone] Encounter Details Date Type Department Care Team (Late st Contact Info) Description 05/23/2025 [facility]amboo [facility] [address] [place] [address] Jignesh Manjarrez MD [address] [place] [address] Social History Tobacco Use Types Packs/Day Years [...] 01/15/2025 How often do you attend chur or mosque services? More than 4 times per year 01/15/2025 Do you belong to any clubs o r organizations such as mu-ism groups, unions, fraternal or athletic groups, or [...] Recorded Patient Health Questionnaire-2 Score 2 11/22/2024 [facility] Occupat ional Health - Occupational Stress [...] place to sleep or slept in a mcfp (including now)? No 12/14/2023 Housing Stability Vital Sign Answer Trent e Recorded In the last 12 months, was t here a time when you were not able to pay the mortgage or rent on time? No 01/15/2025 Number of Times Moved in the Last Year Not on fi le 01/15/2025 At any time in the past 12 m [facility], were you homeless or living in a mcfp (including now)? No 01/15/2025 Sex and Gender Information Value Date Recorded Sex Assigned at Not on file Legal Sex Male 11:16 PM EDT Gender Identity Not on file Sexual Orientation Not on file documented as of this encounter Plan of Treatment Upcoming Encounters Date Type Department Care Team (Late st Contact Info) Description 08/28/2025 1:00 PM EDT Office Visit [facility] [address] [place] [address] Jignesh Manjarrez MD [address] [place] [address] documented as of this encounter Visit Diagnoses Not on filedocumented in this encounter Additional Health Concerns Assessment Noted Time PHQ-9 Depression Total Score: 5 11/22/19 25 3:00 PM EST documented as of this encounter Care Teams Table Assembler Relationship Specialty Start Date End Date Jignesh Manjarrez MD [address] [place] [facility] [place] [address] PCP - General Family Medicine 12/15/23 documented as of this encounter
--- OUTSIDE RECORDS SUMMARY | 2025-06-02 21:29 | XMS_ITS | Encounter Summary ---
Author Organization [facility] Address [address] [place] [address] Care Team Providers Care Luggage Repairer Name Role Phone Jignesh Manjarrez MD Primary Care Provider [phone] Carlos Gonzáles LPN Unavailable Unavailable Encounter Details Date Type Department Care Team (Late st Contact Info) Description 02/24/2024 Orders Only [facility] [address] [place] [address] Jignesh Manjarrez MD [address] [place] [address] Social History Tobacco Use Types Packs/Day Years [...] How often do you attend chur or faith services? More than 4 times per year 12/14/2023 Do you belong to any clubs o r organizations such as presybeterian groups, unions, fraternal or athletic groups, or [...] Recorded Patient Health Questionnaire-2 Score 0 01/11/2024 [facility] Occupat ional Health - [...] place to sleep or slept in a senior care (including now)? No 12/14/2023 Sex and Gender Information Value Date Recorded Sex Assigned at Not on file Legal Sex Male 11:16 PM EDT Gender Identity Not on file Sexual Orientation Not on file documented as of this encounter Plan of Treatment Upcoming Encounters Date Type Department Care Team (Late st Contact Info) Description 08/28/2025 1:00 PM EDT [facility] [address] [place] [address] Jignesh Manjarrez MD [address] [place] [address] documented as of this encounter Procedures Procedure Name Priority Date/Time Associated Diagnosis Comments C-PAP TITRATION SLEEP STUDY Routine 02/24/2024 12:16 PM EDT documented in this encounter Results * C-PAP TITRATION SLEEP STUDY (02/24/2024 12:16 PM EDT) Anatomical Region Laterality Modality Radiographic Kizzy ging Jignesh Manjarrez MD IMG XR PROCEDURES Final Result documented in this encounter Visit Diagnoses Not on filedocumented in this encounter Additional Health Concerns Assessment Noted Time PHQ-9 Depression Total Score: 8 11/29/19 24 1:28 PM EST documented as of this encounter Care Teams Luggage Repairer Relationship Specialty Start Date End Date Jignesh Manjarrez MD [address] [place] [address] PCP - General Family Medicine 12/15/23 Carlos Gonzáles LPN Licensed Practical Nurse Family Medicine 03/12/24 documented as of this encounter
--- OUTSIDE RECORDS SUMMARY | 2025-06-02 21:29 | XMS_ITS | Encounter Summary ---
Author Organization [facility] Address [address] [place] [address] Care Team Providers Care Black Off Worker Name Role Phone Jignesh Manjarrez MD Primary Care Provider [phone] Carlos Gonzáles LPN Unavailable Unavailable Encounter Details Date Type Department Care Team (Late st Contact Info) Description 02/21/2024 Orders Only [facility] [address] [place] [address] Jignesh Manjarrez MD [address] [place] [address] Social History Tobacco Use Types Packs/Day Years [...] How often do you attend chur or gnosticist services? More than 4 times per year 12/14/2023 Do you belong to any clubs o r organizations such as christianity groups, unions, fraternal or athletic groups, or [...] place to sleep or slept in a half-way (including now)? No 12/14/2023 Sex and Gender Information Value Date Recorded Sex Assigned at Not on file Legal Sex Male 11:16 PM EDT Gender Identity Not on file Sexual Orientation Not on file documented as of this encounter Plan of Treatment Upcoming Encounters Date Type Department Care Team (Late st Contact Info) Description 08/28/2025 1:00 PM EDT [facility] [address] [place] [address] Jginesh Manjarrez MD [address] [place] [address] documented as of this encounter Procedures Procedure Name Priority Date/Time Associated Diagnosis Comments CT CHEST WO IV CONTRAST Routine 02/21/2024 11:36 AM EDT XR SHOULDER 2+ VIEWS RIGHT Routine 02/19/2024 12:35 PM EDT documented in this encounter Results * CT chest wo IV contrast (02/21/2024 11:36 AM EDT) Anatomical Region Laterality Modality Body, Chest Computed Tomogra phy Jignesh Manjarrez MD IMG CT PROCEDURES Final Result * XR shoulder 2+ views right (02/19/2024 12:35 PM EDT) Anatomical Region Laterality Modality Upper Extremities, Shoulder Right Radi ographic Imaging Jignesh Manjarrez MD IMG XR PROCEDURES Final Result documented in this encounter Visit Diagnoses Not on filedocumented in this encounter Additional Health Concerns Assessment Noted Time PHQ-9 Depression Total Score: 8 11/29/19 24 1:28 PM EST documented as of this encounter Care Teams Black Off Worker Relationship Specialty Start Date End Date Jignesh Manjarrez MD [address] [place] [address] PCP - General Family Medicine 12/15/23 Carlos Gonzáles LPN Licensed Practical Nurse Family Medicine 03/12/24 documented as of this encounter
--- OUTSIDE RECORDS SUMMARY | 2025-06-02 21:29 | XMS_ITS | Clinical Summary ---
Author Organization [employer] Address [id number] [address] [place] [address] Care Team Providers Care Brand Recorder Name Role Phone Unavailable Primary Care Provider Unavailabl e Allergies Active Allergy Reactions Criticality Noted Date Comments Gabapentin 01/29/2020 Oxycodone Angioedema Medium 01/29/2020 Phenytoin Sodium Extended Dizziness High 11/21/2015 Medications meloxicam 15 mg tablet,disinteg rating 1 tablet Active multivitamin-mi nerals-lutein (MULTIVITAMIN 50 PLUS) tablet daily. Acti ve aspirin 81 mg daily. Active atorvastatin (LIPITOR) 10 mg tablet atorvastatin 10 mg tablet take 1 tablet by mouth once daily Active ibuprofen (ADVIL,MOTRIN) 800 mg tablet Take 1 tablet (800 mg total) by mouth 3 (three) times a day. 21 tablet 1 Active vit [id number] (B-COMPLEX INJECTION) 699-3-170-2-2 mg/mL solution B-Complex 1 QD Active phenytoin (DILANTIN) 100 mg ER capsule take 2 capsules three times a day 360 capsule 1 2 Active PHENobarbitaL (LUMINAL) 32.4 mg tabletIndicatio ns:Seizure (CMS-HCC) take 2 tablets by mouth three times a day 180 tablet 2 Active Active Problems Problem Noted Date Diagnosed Date Arthritis of right hip 08/16/2022 Internal derangement of right knee 08/16/2022 History of falling 08/16/2022 Obesity 01/12/2021 History of colonic polyps 01/28/2020 Hyperlipidemia 01/28/2020 Neuropathy due to chemotherapeutic drug 01/28/20 20 Malignant tumor of urinary 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/16/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 Seizure 01/19/1975 Encounters Date Type Department Care Team Description 05/15/2025 12:57 PM EDT - 05/15/2025 11:59 PM EDT Hospital Encounter [facility] - Radiology [address] [place] [address] Dysphagia, unspecified type Discharge Disposition: Home 05/15/2025 Travel from Last 3 Months Immunizations Immunization Administration Dates Next Due COVID-19, mRNA, LNP-S, PF, 100mcg/0.5mL Dose 05/2021 COVID-19, mRNA, LNP-S, PF, 30mcg/0.3mL Dose 01/20 Covid-19, Mrna, Lnp-s, Bivalent, Pf, 30mcg/0.3 m l 11/04/2023 Influenza Vaccine, Quadrivalent, Adjuvanted 07/22 Influenza, Im Trivalent Preservative 09/03/2019 Influenza, Injectable, quadrivalent (PF) 020,08/24/2019 Influenza, Unspecified 08/21/2022 Pneumococcal Polysaccharide 08/05/2020 SARS-COV-2 (COVID-19) Vaccine, Unspecified 08/21 Family History Medical History Relation Name Comments COPD Brother Stroke Father Diabetes type II Sister Kidney cancer Sister Relation Name Status Comments Brother Father Sister Social History Tobacco Use Types Packs/Day Years Used Date Smoking Tobacco: Former Cigarettes 3 24 Smokeless Tobacco: Never Alcohol Use Standard Drinks/Week Comments Not Currently 0 (1 standard drink = 0.6 oz pur e alcohol) Childcare Answer Date Recorded Childcare Unknown 01/29/2020 Employment Answer Date Recorded Employment Unknown 01/29/2020 Purpose - Life Answer Date Recorded Purpose and direction in life Unknown Sex and Gender Information Value Date Recorded Sex Assigned at Not on file Legal Sex Male 8:07 AM EDT Gender Identity Not on file Sexual Orientation Not on file Last Filed Vital Signs Vital Sign Reading Time Taken Comments Blood Pressure 116/76 08/16/2022 11:33 AM EDT Pulse 73 08/16/2022 11:33 AM EDT Temperature 36.3 C (97.3 F) 08/16/2022 11:33 AM EDT Respiratory Rate 18 09/26/2021 12:3 5 AM EDT Oxygen Saturation 93% 08/16/2022 11: 33 AM EDT Inhaled Oxygen Concentration - - Weight 129.7 kg (285 lb 14.4 oz) 2021 11:33 AM EDT Height 185.4 cm (6' 1 ) 08/16/2022 11:3 3 AM EDT Body Mass Index 37.72 08/16/2022 11:33 AM EDT Plan of Treatment Health Maintenance Due Date Last Done Comments Depression Screening 1967 Tobacco Screening 1967 DTaP,Tdap and Td Vaccines (1 - Tdap) 1974 Zoster (Shingles) Vaccine (1 of 2) 1974 Abdominal Aortic Aneurysm (A AA) Screen 01/27/2020 Adult BMI Screening 08/16/2023 08/16/2022 Fall Risk Screening 08/16/2023 08/16/2022 COVID-19 Vaccine (9 - Mixed Product risk season) 2025 10/11/2024, 11/04/2023, 01/29/2023, Additional history exists Influenza Vaccine 07/22/2025 10/11/2024, , 08/21/2022, Additional history exists Medical Devices Not on file Procedures Procedure Name Priority Date/Time Associated Diagnosis Comments FL UGI AIR CONT W ESOPH Routine 05/15/2025 2:24 PM EDT Dysphagia, unspecified type from Last 3 Months Results * Fluoroscopy upper GI air contrast with esophagus (05/15/2025 2:24 PM EDT) Anatomical Region Laterality Modality Abdomen, Body Radio Fluoroscop y 05/15/2025 2:39 PM EDT Narrative 05/15/2025 2:43 PM EDT History: Chronic dysphasia. Exam/Technique: Double contrast upper [...] DO on 05/15/2025 2:43 PM Procedure Note Westley Motley DO - 05/15/2025 History: Chronic dysphasia. Exam/Technique: Double contrast upper [...] and small hiatal hernia. Finalized by Westley Moltey DO on 05/15/2025 2:43 PM Jignesh Manjarrez MD IMG FLUOROSCOPY ORDERABLES Final Result from Last 3 Months Insurance AETNA MEDICARE [place]ICAID [place]
--- OUTSIDE RECORDS SUMMARY | 2025-06-02 21:29 | XMS_ITS | Encounter Summary ---
Author Organization [facility] Address [address] [place] [address] Care Team Providers Care Roofer Helper Vinyl Coating Name Role Phone Jignesh Manjarrez MD Primary Care Provider [phone] Encounter Details Date Type Department Care Team (Late st Contact Info) Description 05/15/2025 [facility] [address] [place] [address] Jignesh Manjarrez MD [address] [place] [address] Social History Tobacco Use Types Packs/Day Years [...] How often do you attend chur or scientologist services? More than 4 times per year 01/15/2025 Do you belong to any clubs o r organizations such as confucianist groups, unions, fraternal or athletic groups, or [...] Recorded Patient Health Questionnaire-2 Score 2 11/22/2024 [facility] - Occupational Stress Questionnaire Answer [...] place to sleep or slept in a long-term (including now)? No 12/14/2023 Housing Stability Vital Sign Answer Trent e Recorded In the last 12 months, was t here a time when you were not able to pay the mortgage or rent on time? No 01/15/2025 Number of Times Moved in the Last Year Not on fi le 01/15/2025 At any time in the past 12 m [facility], were you homeless or living in a long-term (including now)? No 01/15/2025 Sex and Gender [...] Office Visit [facility] [address] [place] [address] Jignesh Manjarrez MD [address] [place] [address] documented as of this encounter Procedures Procedure Name Priority Date/Time Associated Diagnosis Comments FLUORO UGI WITH ESOPHAGUS 05/15/2025 2:44 PM EDT documented in this encounter Results * FLUORO UGI WITH ESOPHAGUS (05/15/2025 2:44 PM EDT) Anatomical Region Laterality Modality Radiographic Kizzy ging 05/15/2025 2:44 PM EDT Narrative 05/15/2025 2:43 PM EDT THIS EXAM WAS PERFORMED AT [facility] History: Chronic dysphasia. Exam/Technique: Double contrast upper [...] 05/15/2025 2:43 PM Procedure Note Radiology, Radiologist, MD - 05/16/2025 THIS EXAM WAS PERFORMED AT [facility] History: Chronic dysphasia. Exam/Technique: Double contrast upper [...] documented as of this encounter Care Teams Roofer Helper Vinyl Coating Relationship Specialty Start Date End Date Jignesh Manjarrez MD [address] [place] [address] PCP - General Family Medicine 12/15/23 documented as of this encounter
--- OUTSIDE RECORDS SUMMARY | 2025-06-02 21:29 | XMS_ITS | Encounter Summary ---
Author Organization [facility] Address [address] [place] [address] Care Team Providers Care Trout Farmer Name Role Phone Jignesh Manjarrez MD Primary Care Provider [phone] Reason for Visit * Reason Comments Med Refill Encounter Details Date Type Department Care Team (Late st Contact Info) Description 05/20[facility] [address] [place] [address] Jignesh Manjarrez MD [address] [place] [phone] Bilateral leg edema Social History Tobacco Use Types Packs/Day Years [...] How often do you attend chur or catholic services? More than 4 times per year 01/15/2025 Do you belong to any clubs o r organizations such as congregational groups, unions, fraternal or athletic groups, or [...] Recorded Patient Health Questionnaire-2 Score 2 11/22/2024 [facility] Occupat ional Health - Occupational Stress [...] place to sleep or slept in a penitentiary (including now)? No 12/14/2023 Housing Stability Vital Sign Answer Trent e Recorded In the last 12 months, was t here a time when you were not able to pay the mortgage or rent on time? No 01/15/2025 Number of Times Moved in the Last Year Not on fi le 01/15/2025 At any time in the past 12 m [facility], were you homeless or living in a penitentiary (including now)? No 01/15/2025 Sex and Gender Information Value Date Recorded Sex Assigned at Not on file Legal Sex Male 11:16 PM EDT Gender Identity Not on file Sexual Orientation Not on file documented as of this encounter Miscellaneous Notes * Telephone Encounter - DARCY THOMPSON - 05/21/2025 9:01 AM EDT MEDICATION SENT TO [facility] documented in this encounter Plan of Treatment Upcoming Encounters Date Type Department Care Team (Late st Contact Info) Description 08/28/2025 1:00 PM EDT Office Visit [facility] [address] [place] [address] Jignesh Manjarrez MD [address] [place] [address] documented as of this encounter Visit Diagnoses Diagnosis Bilateral leg edema Edema documented in this encounter Additional Health Concerns Assessment Noted Time PHQ-9 Depression Total Score: 5 11/22/19 3:00 PM EST documented as of this encounter Care Teams Trout Farmer Relationship Specialty Start Date End Date Jignesh Manjarrez MD [address] [place] [address] PCP - General Family Medicine 12/15/23 documented as of this encounter
--- OUTSIDE RECORDS SUMMARY | 2025-06-02 21:29 | XMS_ITS | Encounter Summary ---
Author Organization [facility] Address [address] [place] [address] Care Team Providers Care Control Area Operator Name Role Phone Jignesh Manjarrez MD Primary Care Provider Encounter Details Date Type Department Care Team (Late st Contact Info) Description 05/21/2025 Abstract [facility] [address] [place] [address] Jignesh Manjarrez MD [address] [place] [address] Social History Tobacco Use Types Packs/Day Years [...] How often do you attend chur or rastafari services? More than 4 times per year 01/15/2025 Do you belong to any clubs o r organizations such as sikh groups, unions, fraternal or athletic groups, or [...] Recorded Patient Health Questionnaire-2 Score 2 11/22/2024 [facility] of Occupat ionvt Health - Occupational Stress Questionnaire Answer Date [...] place to sleep or slept in a alf (including now)? No 12/14/2023 Housing Stability Vital Sign Answer Trent e Recorded In the last 12 months, was t here a time when you were not able to pay the mortgage or rent on time? No 01/15/2025 Number of Times Moved in the Last Year Not on fi le 01/15/2025 At any time in the past 12 m [facility], were you homeless or living in a alf (including now)? No 01/15/2025 Sex and Gender Information Value Date Recorded Sex Assigned at Not on file Legal Sex Male 11:16 PM EDT Gender Identity Not on file Sexual Orientation Not on file documented as of this encounter Plan of Treatment Upcoming Encounters Date Type Department Care Team (Late st Contact Info) Description 08/28/2025 1:00 PM EDT Office Visit [facility] [address] [place] [address] Jignesh Manjarrez MD [address] [place] [address] documented as of this encounter Visit Diagnoses Not on filedocumented in this encounter Additional Health Concerns Assessment Noted Time PHQ-9 Depression Total Score: 5 11/22/19 25 3:00 PM EST documented as of this encounter Care Teams Control Area Operator Relationship Specialty Start Date End Date Jignesh Manjarrez MD [address] [place] [address] PCP - General Family Medicine 12/15/23 documented as of this encounter
--- OUTSIDE RECORDS SUMMARY | 2025-06-02 21:30 | XMS_ITS | Encounter Summary ---
Author Organization [employer] Address [id number] [address] [place] [address] Care Team Providers Care Extractor Plant Operator Name Role Phone Jose Marie DO Primary Care Provider Reason for Visit * Reason Comments Med Refill Encounter Details Date Type Department Care Team (Late st Contact Info) Description 09/01/2022 Refill [facility] - Family Medicine [address] [place] [phone] Jose Marie DO [address], [place] [address] Seizure ([facility]) (Primary Dx) Social History Tobacco Use Types Packs/Day Years [...] on file Sexual Orientation Not on file COVID-19 Exposure Response Date Recorded In the last month, have you been in contact with someone who was confirmed or suspected to have Coronavirus / COVID-19? No / Unsure 08/16/2022 11:15 AM EDT documented as of this encounter Plan of Treatment Not on file documented as of this encounter Visit Diagnoses Diagnosis Seizure (CMS-HCC)- Primary Other convulsions documented in this encounter Care Teams Extractor Plant Operator Relationship Specialty Start Date End Date Jose Marie DO [address] [facility], [place] [address] PCP - General Family Medicine 11/17/23 06/11/24 documented as of this encounter
--- OUTSIDE RECORDS SUMMARY | 2025-06-02 21:30 | XMS_ITS | Encounter Summary ---
Author Organization [facility] Address [address] [place] [address] Care Team Providers Care Bill Recapitulation Clerk Name Role Phone Jignesh Manjarrez MD Primary Care Provider [phone] Encounter Details Date Type Department Care Team (Late st Contact Info) Description 08/15/2024 Orders Only [facility] [address] [place] [address] Jignesh Manjarrez MD [address] [place] [phone] Social History Tobacco Use Types Packs/Day Years [...] How often do you attend chur or restorationism services? More than 4 times per year 12/14/2023 Do you belong to any clubs o r organizations such as voodoo groups, unions, fraternal or athletic groups, or [...] Recorded Patient Health Questionnaire-2 Score 0 01/11/2024 [facility] of Occupat ionnc Health - Occupational Stress Questionnaire Answer Date [...] place to sleep or slept in a custodial (including now)? No 12/14/2023 Sex and Gender [...] Office Visit [facility] [address] [place] [address] Jignesh Manjarrez MD [address] [place] [address] documented as of this encounter Procedures Procedure Name Priority Date/Time Associated Diagnosis Comments TITRATION STUDY Routine 08/13/2024 1:33 PM EDT documented in this encounter Results * Titration Study (08/13/2024 1:33 PM EDT) Jignesh Manjarrez MD [facility] ORDERABLES Final Re sult documented in this encounter Visit Diagnoses Not on filedocumented in this encounter Additional Health Concerns Assessment Noted Time PHQ-9 Depression Total Score: 8 11/29/19 1:28 PM EST documented as of this encounter Care Teams Bill Recapitulation Clerk Relationship Specialty Start Date End Date Jignesh Manjarrez MD [address] [place] [address] PCP - General Family Medicine 12/15/23 documented as of this encounter
--- OUTSIDE RECORDS SUMMARY | 2025-06-02 21:30 | XMS_ITS | Encounter Summary ---
Author Organization [facility] Address [address] [place] [address] Care Team Providers Care Circulation Librarian Name Role Phone Jignesh Manjarrez MD Primary Care Provider [phone] Encounter Details Date Type Department Care Team (Late st Contact Info) Description 02/28/2025 Orders Only [facility] [address] [place] [place] [address] Jignesh Manjarrez MD [address] [place] [address] Social History Tobacco Use Types Packs/Day Years [...] How often do you attend chur or denominational services? More than 4 times per year 01/15/2025 Do you belong to any clubs o r organizations such as yazidism groups, unions, fraternal or athletic groups, or [...] Recorded Patient Health Questionnaire-2 Score 2 11/22/2024 [facility] of Occupat ionwi Health - Occupational Stress Questionnaire Answer Date [...] time in the past 12 m [facility], were you homeless or living [...] Visit [facility] [address] [place] [address] Jignesh Manjarrez MD [address] [place] [address] documented as of this encounter Visit Diagnoses Not on filedocumented in this encounter Additional Health Concerns Assessment Noted Time PHQ-9 Depression Total Score: 5 11/22/19 25 3:00 PM EST documented as of this encounter Care Teams Circulation Librarian Relationship Specialty Start Date End Date Jignesh Manjarrez MD [address] [place] [address] PCP - General Family Medicine 12/15/23 documented as of this encounter
--- OUTSIDE RECORDS SUMMARY | 2025-06-02 21:30 | XMS_ITS | Encounter Summary ---
Author Organization [facility] Address [address] [place] [address] Care Team Providers Care Bpm Architect Name Role Phone Jignesh Manjarrez MD Primary Care Provider [phone] Encounter Details Date Type Department Care Team (Late st Contact Info) Description 11/12/2024 Orders Only [facility] [address] [place] [address] Zain Sena MD [address] [place] [address] Social History Tobacco Use Types Packs/Day Years [...] 12/14/2023 How often do you attend chur ch or anglican services? More than 4 times per year 12/14/2023 Do you belong to any clubs o r organizations such as sabianist groups, unions, fraternal or athletic groups, or [...] Recorded Patient Health Questionnaire-2 Score 0 01/11/2024 [facility] Questionnaire Answer Date Recorded [...] place to sleep or slept in a residential (including now)? No 12/14/2023 Sex and Gender Information Value Date Recorded Sex Assigned at Not on file Legal Sex Male 11:16 PM EDT Gender Identity Not on file Sexual Orientation Not on file documented as of this encounter Plan of Treatment Upcoming Encounters Date Type Department Care Team (Late st Contact Info) Description 08/28/2025 1:00 PM EDT Office Visit [facility] [address] [place] [address] Jignesh Manjarrez MD [address] [place] [address] documented as of this encounter Procedures Procedure Name Priority Date/Time Associated Diagnosis Comments RHYTHM ECG, REPORT Routine 11/12/2024 11:18 AM EST XR CHEST 1 VIEW Routine 11/11/2024 11:32 AM EST XR HIP 2-3 VIEWS RIGHT + PELVIS Routine 11/09/2024 10:23 AM EST documented in this encounter Results * ECG 3 Lead (11/12/2024 11:18 AM EST) us Jignesh Manjarrez MD IN CLINIC/BEDSIDE ORDERABLES Fin al Result * XR chest 1 view (11/11/2024 11:32 AM EST) Anatomical Region Laterality Modality Chest Radiographic Kizzy ging Zain Washington MD IMG XR PROCEDURES Final Resul t * XR HIP 2-3 VIEWS RIGHT + PELVIS (11/09/2024 10:23 AM EST) Anatomical Region Laterality Modality Radiographic Kizzy ging Zain Sena MD IMG XR PROCEDURES Final Result documented in this encounter Visit Diagnoses Not on filedocumented in this encounter Additional Health Concerns Assessment Noted Time PHQ-9 Depression Total Score: 8 11/29/19 24 1:28 PM EST documented as of this encounter Care Teams Bpm Architect Relationship Specialty Start Date End Date Jignesh Manjarrez MD [address] [place] [address] PCP - General Family Medicine 12/15/23 documented as of this encounter
--- OUTSIDE RECORDS SUMMARY | 2025-06-02 21:30 | XMS_ITS | Encounter Summary ---
Author Organization [facility] Address [address] [place] [address] Care Team Providers Care Assistant Professor Nurse Education Name Role Phone Jignesh Manjarrez MD Primary Care Provider [phone] Encounter Details Date Type Department Care Team (Late st Contact Info) Description 04/23/[address] [facility] [address] [place] [address] Jignesh Manjarrez MD [address] [place] [address] Social History Tobacco Use Types Packs/Day Years [...] How often do you attend chur or episcopal services? More than 4 times per year 01/15/2025 Do you belong to any clubs o r organizations such as baptism groups, unions, fraternal or athletic groups, or [...] Score 2 11/22/2024 [facility] of Occupat ionwy Health - Occupational Stress Questionnaire Answer Date [...] place to sleep or slept in a detention (including now)? No 12/14/2023 Housing Stability Vital Sign Answer Trent e Recorded In the last 12 months, was t here a time when you were not able to pay the mortgage or rent on time? No 01/15/2025 Number of Times Moved in the Last Year Not on fi le 01/15/2025 At any time in the past 12 m [facility], were you homeless or living in a detention (including now)? No 01/15/2025 Sex and Gender [...] Visit [facility] [address] [place] [address] Jignesh Manjarrez MD [address] [place] [address] documented as of this encounter Visit Diagnoses Not on filedocumented in this encounter Additional Health Concerns Assessment Noted Time PHQ-9 Depression Total Score: 5 11/22/19 25 3:00 PM EST documented as of this encounter Care Teams Assistant Professor Nurse Education Relationship Specialty Start Date End Date Jignesh Manjarrez MD [address] [place] [address] PCP - General Family Medicine 12/15/23 documented as of this encounter
--- OUTSIDE RECORDS SUMMARY | 2025-06-02 21:30 | XMS_ITS | Encounter Summary ---
Author Organization [facility] Address [address] [place] [address] Care Team Providers Care Nursing Care Attendant Name Role Phone Jignesh Manjarrez MD Primary Care Provider [phone] Encounter Details Date Type Department Care Team (Late st Contact Info) Description 12/11/2024 Orders Only [facility] [address] [place] [address] Esteban Sprague DO Social History Tobacco Use Types Packs/Day Years [...] often do you attend chur ch or latter day services? More than 4 times per year [...] Recorded Patient Health Questionnaire-2 Score 2 11/22/2024 [facility] - Occupational Stress Questionnaire Answer Date [...] in a fci (including now)? No 12/14/2023 Sex and Gender Information Value Date Recorded Sex Assigned at Not on file Legal Sex Male 11:16 PM EDT Gender Identity Not on file Sexual Orientation Not on file documented as of this encounter Plan of Treatment Upcoming Encounters Date Type Department Care Team (Late st Contact Info) Description 08/28/2025 1:00 PM EDT [facility] [address] [place] [address] Jignesh Manjarrez MD [address] [place] [address] documented as of this encounter Procedures Procedure Name Priority Date/Time Associated Diagnosis Comments COLONOSCOPY Routine 12/11/2024 10:20 AM EST documented in this encounter Results * Colonoscopy (12/11/2024 10:20 AM EST) Anatomical Region Laterality Modality Endoscopy Esteban Sprague DO ENDOSCOPY PROCEDURE ORDERABLES F inal Result documented in this encounter Visit Diagnoses Not on filedocumented in this encounter Additional Health Concerns Assessment Noted Time PHQ-9 Depression Total Score: 5 11/22/19 25 3:00 PM EST documented as of this encounter Care Teams Nursing Care Attendant Relationship Specialty Start Date End Date Jignesh Manjarrez MD [address] [place] [address] PCP - General Family Medicine 12/15/23 documented as of this encounter
--- OUTSIDE RECORDS SUMMARY | 2025-06-02 21:30 | XMS_ITS ---
Author Name Stormy RN, LANCE, Gerri dai Xiomara Address [address] [place] [address] Phone [phone] Organization [facility] Care Team Providers Care Job Coach/Job Developer Name Role Phone Sarah Burrows Unavailable [phone] Reason for Referral Not Available Allergies, adverse reactions, alerts Allergen Type Reaction Severity Status Onset Date Oxycodone Allergy to substance (disorder) Angioedema Unknown Active N/A Gabapentin Allergy to substance (disorder) Unknown Active N/A Phenytoin Allergy to substance (disorder) Unknown Active N/A History of medication use Medication Class Instructions Start Date End Date PHENobarbital 32.4 mg Tab TAKE 2 TABLETS BY MOUTH THREE TIMES DAILY 2024-07-18 No Data Available Meclizine 25 mg Tab TAKE 1 TABLET BY [facility] FOUR TIMES DAILY (IN THE MORNING, at noon, IN THE EVENING and BEFORE bedtime) 2024-08-09 No Data Available Furosemide 40 mg Tab TAKE 1 TABLET BY MO UT DAILY NEEDED 2024-07-06 No Data Available predniSONE 50 mg Tab TAKE 1 TABLET BY MO UT ONCE DAILY FOR 6 DAYS 2024-08-16 2025-01-17 Cetirizine 10 mg Tab TAKE 1 TABLET BY MO UT ONCE DAILY FOR 14 DAYS 2024-08-16 No Data Available Atorvastatin Calcium 10 mg Tab TAKE 1 TABLET BY MOUTH AT BEDTIME 2024-04-12 No Data Available Phenytoin Sodium Extended 10 0 mg Cap TAKE 2 CAPSULES BY MOUTH IN THE MORNING, then TAKE 2 CAPSULES BY MOUTH IN THE EVENING and then TAKE 2 CAPSULES BY MOUTH BEFORE bedtime 2024-02-15 No Data Available Methocarbamol 750 mg Tab TAKE 1 TABLET B Y MOUTH THREE TIMES DAILY NEEDED FOR MUSCLE SPASMS 2024-09-07 No Data Available Meloxicam 7.5 mg Tab TAKE 1 TABLET BY MO UTH ONCE DAILY FOR 15 DAYS 2024-09-07 No Data Available Citalopram Hydrobromide 40 m g Tab TAKE 1 TABLET BY MOUTH IN THE MORNING 2024-03-19 No Data Available HYDROcodone-Acetaminophen 5/325 mg Tab TAKE 1 TABLET BY MOUTH FOUR TIMES DAILY NEEDED FOR SEVERE PAIN for up to 7 (SEVEN) days 2024-10-11 No Data Available Fluticasone Propionate 50 MCG/ACT Suspension INSERT 2 (TWO) sprays in EACH nostril ONCE DAILY; Before first use, prime pump; After use, clean tip and replace cap 2024-10-25 No Data Available Polyethylene Glycol 3350 17 GM/SCOOP Powder take 17 grams BY MOUTH as a one time dose 2024-11-27 2025-01-17 Bisacodyl EC 5 mg Tab delaye d rel TAKE 1 TABLET BY MOUTH IN THE MORNING then TAKE 1 TABLET BY MOUTH BEFORE bedtime, do not crush, chew,or split 2024-11-27 2025-01-17 Isosorbide Mononitrate ER 30 mg Tab ER 24hr TAKE ONE TABLET BY MOUTH EVERY MORNING. DO NOT CRUSH OR CHEW 2025-01-13 No Data Available Metoprolol Succinate ER 25 m g Tab ER 24hr TAKE ONE TABLET BY MOUTH EVERY MORNING. 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 2025-01-16 N/A N/A Hx of bladder cancer Active 2025-01-16 N/A N/A History of germ cell tumor Active 2025-01-16 N/A N/A HTN (hypertension) Active 2025-01-16 N/A N/A Seizure Active 2025-01-17 N/A N/A Encounters Encounters Type Facility Date of Service Diagnosis/Co mplaint Transitional Care [facility] 7 Day Disch [place], [place], [place] 01/17/2025 Encntr for f/u exam aft trtm t for cond oth than malig neoplmUnstable angina [facility] 7 Day Disch [place], 01/17/2025 Encntr for f/u exam aft trtm t for cond oth than malig neoplmUnstable angina Social History Sex Male History of Procedures Procedures Service Procedure code Service date Servicing provider Phone# [facility]itional [facility] 7 Day Disch [id number] 2025-01-17 No Data Available No Data Avail able Medrec Completed within 30 Days of Discharge 1111F 2025-01-17 No Data Available No Data Availa ble Functional Status No Information Mental Status No Information Assessments Date of Service Assessments 2025-01-17 07:41:[address] he was d/c to home with home health and PT will start soon. Has PCP appt 01/21/25. Has home BP cuff and monitors regularly. Denies needs and concerns at this time.Pt declined a post discharge visit with a Max providerRN reinforced availability of provider 13/06 for 30 days after discharge and encouraged CB w/ any concerns or if pt is worse in any way. Advised pt to call to reach our staff. Plan of Care Not Available Goals Date Goal 2025-01-17 KENNETH reviewed with andrey hidalgo with above diagnosis. This is a RN KENNETH encounter; no treatment was rendered to the patient by the provider. This encounter has been reviewed by the provider signing this note. 2025-01-17 Max is not the c urrent prescriber for the medications reviewed today. Patient is aware to review their full medication list with their prescriber(s) for possible medication interactions. Health Concerns Date Concern 2025-01-17 For initial outreach (x out if does not apply/scheduled KENNETH):Plan name: LARISSA BetancourtRohitradha Access Ends: 02/14/25Patient texting capabilities: Yes 2025-01-17 Type of Visit: IPAdm it Date: 01/11/25Discharge Date: 01/15/25[facility]Discharge diagnosis:UNSTABLE ANGINA 2025-01-17 Transitions of Care Call:This visit was completed by telephone.The patient name and date of were confirmed.The patient/caregiver consented to a telephone KENNETH call with Max. The patient and caregiver was/were present at the time of the phone call.Pt spoke with: Carmelo Mosley during call: PatientPatient s preferred language: EnglishTime spent with patient: 23 minutesHPI: Pt is a 69 yo M. 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 States he was transferred to a hospital in [place]. Reports he had bloodwork, ECHO, EKG, and a heart cath. States he has 20% and 30% cardiac blockages. Pt states he developed a rash on the top of his left arm the day he was d/c and this is being monitored by home health. 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 Denies SOB and chest pain, no audible signs of distress noted. Pt states he monitors BP regularly and it stays [facility]. Pt encouraged to call if rash persists or worsens. 2025-01-17 Urgent Care Need:Pt denies any urgent care concerns
--- OUTSIDE RECORDS SUMMARY | 2025-06-02 21:30 | XMS_ITS | Encounter Summary ---
Author Organization [facility] Address [address] [place] [address] Care Team Providers Care Wedding Consultant Name Role Phone Jignesh Manjarrez MD Primary Care Provider [phone] Encounter Details Date Type Department Care Team (Late st Contact Info) Description 04/08/2025 Abstract [facility] [address] [place] [address] Jignesh Manjarrez MD [address] [place] [address] Social History Tobacco Use Types Packs/Day Years [...] How often do you attend chur or islam services? More than 4 times per year 01/15/2025 Do you belong to any clubs o r organizations such as temple groups, unions, fraternal or athletic groups, or [...] Recorded Patient Health Questionnaire-2 Score 2 11/22/2024 [facility] - Occupational Stress Questionnaire Answer Date [...] place to sleep or slept in a fpc (including now)? No 12/14/2023 Housing Stability Vital [...] were you homeless or living in a fpc (including now)? No 01/15/2025 Sex and Gender [...] Visit [facility] [address] [place] [address] Jignesh Manjarrez MD [address] [place] [address] documented as of this encounter Visit Diagnoses Not on filedocumented in this encounter Additional Health Concerns Assessment Noted Time PHQ-9 Depression Total Score: 5 11/22/19 25 3:00 PM EST documented as of this encounter Care Teams Wedding Consultant Relationship Specialty Start Date End Date Jignesh Manjarrez MD [address] [place] [address] PCP - General Family Medicine 12/15/23 documented as of this encounter
--- OUTSIDE RECORDS SUMMARY | 2025-06-02 21:30 | XMS_ITS | Encounter Summary ---
Author Organization [employer] Address [id number] [address] [place] [address] Care Team Providers Care Landscape Laborer Name Role Phone Jose Marie DO Primary Care Provider [phone] Reason for Visit * Reason Comments Med Refill Encounter Details Date Type Department Care Team (Late st Contact Info) Description 01/04/2023 Refill [facility] Internal Medicine - Family Medicine [address] [place] [address] Jose Marie DO [address], [facility] [address] Social History Tobacco Use Types Packs/Day Years [...] Diagnoses Not on filedocumented in this encounter Care Teams Landscape Laborer Relationship Specialty Start Date End Date Jose Marie DO [address] [place] [address] PCP - General Family Medicine 11/17/23 06/11/24 documented as of this encounter
--- OUTSIDE RECORDS SUMMARY | 2025-06-02 21:30 | XMS_ITS | Encounter Summary ---
Author Organization [employer] Address [id number] [address] [place] [address] Care Team Providers Care User Support Analyst Supervisor Name Role Phone Jose Marie DO Primary Care Provider Reason for Visit * Reason Comments Med Refill Encounter Details Date Type Department Care Team (Late st Contact Info) Description 12/18/2022 Refill [facility] Internal Medicine - Family Medicine [address] [place] [address] Jose Marie DO [address], [facility] [place] [address] Social History Tobacco Use Types Packs/Day Years [...] encounter Miscellaneous Notes * Telephone Encounter - Jose Marie DO - 12/18/2022 12:27 PM EST I have a RF request. Is he still a patient here? I thought he transferred because of insurance reasons. If so he is overdue for controlled substance visit. * Telephone Encounter - Elmira David CMA - 12/18/2022 12:27 PM EST He is not a patient anymore I believe he transferred due to insurance * Telephone Encounter - Jose Marie DO - 12/18/2022 12:27 PM EST Not a patient here and he longer documented in this encounter Plan of Treatment Not on file documented as of this encounter Visit Diagnoses Not on filedocumented in this encounter Care Teams User Support Analyst Supervisor Relationship Specialty Start Date End Date Jose Marie DO [address], [facility] [place] [address] PCP - General Family Medicine 11/17/23 06/11/24 documented as of this encounter
--- OUTSIDE RECORDS SUMMARY | 2025-06-02 21:30 | XMS_ITS | Encounter Summary ---
Author Organization [facility] Address [address] [facility] [place] [address] Care Team Providers Care Supply Requirements Officer Name Role Phone Jignesh Manjarrez MD Primary Care Provider [phone] Encounter Details Date Type Department Care Team (Late st Contact Info) Description 01/10/2025 Orders Only [facility] [address] [place] [address] Brando Jeffrey, DO [address] [place] [id number] Social History Tobacco Use Types Packs/Day Years [...] How often do you attend chur or mandaen services? More than 4 times per year 12/14/2023 Do you belong to any clubs o r organizations such as islam groups, unions, fraternal or athletic groups, or [...] Recorded Patient Health Questionnaire-2 Score 2 11/22/2024 [facility] Health - Occupational Stress Questionnaire Answer Date [...] 08/28/2025 1:00 PM EDT Office Visit [facility] [address] [place] [address] Jignesh Manjarrez MD [address] [place] [address] documented as of this encounter Procedures Procedure Name Priority Date/Time Associated Diagnosis Comments RHYTHM ECG, REPORT Routine 01/10/2025 11:03 AM EST documented in this encounter Results * ECG 3 Lead (01/10/2025 11:03 AM EST) us Brando Jeffrey DO IN CLINIC/BEDSIDE ORDERABLES Final Result documented in this encounter Visit Diagnoses Not on filedocumented in this encounter Additional Health Concerns Assessment Noted Time PHQ-9 Depression Total Score: 5 11/22/19 25 3:00 PM EST documented as of this encounter Care Teams Supply Requirements Officer Relationship Specialty Start Date End Date Jignesh Manjarrez MD [address] [place] [phone] PCP - General Family Medicine 12/15/23 documented as of this encounter
--- OUTSIDE RECORDS SUMMARY | 2025-06-02 21:30 | XMS_ITS | CCD ---
Author Organization [facility] Providers Care Film Maker Name Role Phone KARINA JAY Attending Unavailable SELF, REFERRED Referring Unavailable JOSE MCCLOUD Primary Care Unavailable JOHN MEJÍA Admitting Unavailable Alex Bonilla Unavailable Neelam Morris Unavailable AME, DR JOSE Danielson Admitting Unavailable FURLONG, DR JOSE Danielson Attending Unavailable MERCYEREChata, DR JIGNESH Means Primary Care Unavailable JUANCARLOSLONG, DR JOSE Danielson Primary Care Unavailable CARRIE LAZO Consulting Unavailable FAWWAD, TONY H Admitting Unavailable FAWWAVcitorina TONY H Attending Unavailable FAWWAD TONY H Consulting Unavailable MAMIE ALFORD Consulting Unavailable HAY ., DR BUENROSTRO Admitting Unavailable HAY ., DR BUENROSTRO Attending Unavailable NADEREChata, DR JIGNESH Means Primary Care Unavailable MURFREESBORO, DR TRINIDAD Cummins Consulting Unavailable YAIR ., MARIANA Consulting Unavailable NADERER, DR JIGNESH [...] Unavailable NADEREChata, DR JIGNESH Means Consulting Unavailable MERCYEREChata, DR JIGNESH Means Admitting Unavailable MERCYEREChata, DR JIGNESH Means Attending Unavailable WALLACE, DR JIGNESH Means Primary Care Unavailable BARBER, DR KELL Brizuela Consulting Unavailable NADERER, DR JIGNESH Means Consulting Unavailable Luiz Riggs Unavailable MD Luiz Riggs Attending Provider [phone] MD Jignesh Gonsalez Primary Care Provider JIGNESH GONSALEZ Primary Care Physician Chris CAMARILLO Attending Unavailable NADERERJIGNESH Referring Unavailable Chris CAMARILLO Attending Unavailable MD Jignesh Gonsalez Primary Care Provider [phone] RIDGE Garcia Attending Provider MD Jignesh Gonsalez Primary Care Provider [phone] RIDGE Garcia Attending Provider Jignesh Gonsalez MD Primary Care Provider Jignesh Gonsalez Primary Care Unavailable Joslyn Garcia Attending Unavailable oJslyn Garcia Admitting Unavailable MercyereJignesh brizuela Primary Care Unavailable Joslyn Garcia Attending Unavailable Joslyn Garcia Admitting Unavailable LuluYancy Admitting Unavailable Naderechata, Jignesh Primary Care Unavailable Yancy Lawson M Attending Unavailable Ame HUDSON Jose G Primary Care Provider [phone] WILLIAM, DARRELL Referring Unavailable WILLIAM, DARRELL Referring Unavailable ELTAHAWY, ADELEAB Attending Unavailable OVITTCORNELIO Attending Unavailable MOUKARBELCOLE Referring Unavailable SAPPHIRE BONANANO Admitting Unavailable ROZINA JOSHI Attending Unavailable CORNELIO HODGES Referring Unavailable JONY WEBBER Referring Unavailable NADERER, JIGNESH Referring Unavailable AMRIK PÉREZ Attending Unavailable NADERER, JIGNESH Referring Unavailable NADERER, JIGNESH Attending Unavailable DANECAHRI Attending Unavailable NADERER, JIGNESH Attending Unavailable NADERER, JIGNESH Attending Unavailable DANECHARI AVILES Attending Unavailable IMELDA THOMPSON Attending Unavailable IMELDA THOMPSON Referring Unavailable NADERER, JIGNESH Attending Unavailable DANECHARI AVILES Attending Unavailable NADERER, JIGNESH Attending Unavailable JOSE M REA Attending Unavailable NADERER, JIGNESH Referring Unavailable NADERER, JIGNESH Attending Unavailable NADERER, JIGNESH Attending Unavailable Naderer Jignesh GAN Primary Care Provider Sandy Sarabia APRN Attending Provider Kaykay Mendoza APRN Attending Provider Allergies Allergy Classification Reported Allergen(s) Allergy Type Date of Onset Reaction(s) Facility Anti-Epileptic Agents (2 sources) gabapentin Drug Allergy 4 stomach upset, IV ONLY-Dizzy [facility] Opioid Agonists (1 source) oxyCODONE Drug Allergy 4 Unknown Reaction [facility] (13 sources) gabapentin; Translations: [GABAPENTIN] Drug Allergy 0 stomach upset [facility] Repository (2 sources) oxyCODONE Drug Allergy 0 [facility] Repository (3 sources) Phenytoin; Translations: [Dilantin] Drug Allergy 0 [facility] Repository (20 sources) gabapentin; Translations: [gabapentin] Drug Allergy 0 Unknown (qualifier value), Unknown [facility] (20 sources) oxyCODONE; Translations: [oxycodone] Drug Allergy 0 Difficulty breathing (finding), Angioedema, Unknown [facility] (20 sources) Phenytoin; Translations: [phenytoin] Drug Allergy 6 Dizziness (finding), Unknown, Dizziness [facility] (2 sources) Phenytoin; Translations: [PHENYTOIN SODIUM EXTENDED] Drug Allergy 6 [facility] Repository (1 source) gabapentin Drug Allergy 4 [facility] Repository (1 source) oxyCODONE Drug Allergy 4 [facility] Repository (1 source) Phenytoin Drug Allergy 4 [facility] Repository Medications Current Medications Medication Drug Class(es) Dates Sig (Normalized) Sig (Original) acetaminophen 325 mg / HYDROcodone bitartrate 5 mg oral tablet (20 sources) Opioid Agonist Start: 01-28-2025 End: 02-04-2025 take 1 tablet by mouth four times daily as needed for pain HYDROcodone-acetami nophen ([place]) 5-325 MG tablet Indications: Degenerative lumbar spinal stenosis Take 1 tablet by mouth 4 (four) times a day as needed for severe pain for up to 7 days 28 tablet 01/28/2025 02/04/2025 Active Start: 11-15-2024 End: 11-22-2024 take 1 tablet by mouth four times daily as needed for pain HYDROcodone-acetaminophen ([place]) 5-325 MG tablet Indications: Degenerative lumbar spinal stenosis Take 1 tablet by mouth 4 (four) times a day as needed for severe pain for up to 7 days 28 tablet 11/15/2024 11/22/2024 Active Start: 04-23-2024 End: 11-01-2024 take 1 tablet by mouth four times daily as needed for pain HYDROcodone-acetaminophen ([place]) 5-325 MG tablet Indications: Degenerative lumbar spinal stenosis Take 1 tablet by mouth 4 (four) times a day as needed for severe pain for up to 7 days 28 tablet 10/25/2024 11/01/2024 Active [place] Active take 1 tablet by ambika th every six hours HYDROcodone-Acetaminophen 7.5-325 MG 1 tablet as needed Orally every 6 hrs Active albuterol 0.83 mg/ml inhalation solution (20 sources) beta2-Adrenergic Agonist Start: 05-26-2025 Albut mati Sulfate 2.5 mg /3 mL (0.083 %) solution for nebulization Active 2.5 MG CNTNEBULIZ Every 4 hours as needed May 26, 2025 12:00am Complies with drug therapy Start: 05-26-2025 Albuterol Sulf ate 90 mcg/actuation HFA aerosol inhaler Active INHALATION May 26, 2025 12:00am Complies with drug therapy Start: 03-25-2025 albuterol (2.5 MG/3ML) 0.083% nebulizer solution Indications: Chronic obstructive pulmonary disease, unspecified COPD type (HCC) Take 3 mL (2.5 mg) by nebulization [...] Inhibitor, Nonsteroidal Anti-inflammatory Drug Start: 04-23-2024 take 1 tablet by mouth once daily Aspirin 81 mg tablet,delayed release (DR/EC) Active 81 MG PO Daily April 23, 2024 12:00am Complies with drug therapy Baby Aspirin Act gloria atorvastatin 10 mg oral tablet (20 sources) HMG-CoA Reductase Inhibitor Start: 04-12-2024 End: 05-14-2026 take 1 tablet by mouth once daily Atorvastatin 10 mg tablet Active 10 MG PO Daily April 23, 2024 12:00am Complies with drug therapy Start: 07-15-2023 atorvastatin 1 0 mg Tab Refills(s) 0 Start Date: 07/15/23 Status: Ordered Atorvastatin Jesus cium Active cetirizine hydrochloride 10 mg oral tablet (4 sources) Histamine-1 Receptor Antagonist Start: 08-16-2024 take 1 tablet by mouth once daily Cetirizine (Allergy Relief (Cetirizine)) 10 mg tablet Active 10 MG PO daily 14 August 16, 2024 12:00am Complies with drug therapy ciprofloxacin 3 mg/ml / dexamethasone 1 mg/ml otic suspension (2 sources) Corticosteroid, Quinolone Antimicrobial Start: 05-26-2025 Ciprofloxacin-Dexam ethasone 0.3-0.1 % drops,suspension Active 4 DROPS OTIC Twice daily 7.5 7 May 26, 2025 12:00am Complies with drug therapy Start: 05-12-2025 End: 05-12-2025 Ciprofloxacin-Dexamethasone 0.3-0.1 % drops,suspension Discontinued 4 DROPS EAR-BOTH Twice daily 7.5 May 12, 2025 12:00am May 12, 2025 1:10pm citalopram 40 mg oral tablet (20 sources) Serotonin Reuptake Inhibitor Start: 03-19-2024 End: 10-24-2024 take 1 tablet by mouth in the morning citalopram (CeleXA) 40 MG tablet Indications: Major depressive disorder, recurrent episode, mild TAKE 1 TABLET BY MOUTH IN THE MORNING 30 tablet 5 02/11/2025 Active Start: 07-15-2023 citalopram 40 mg Tab Refills(s) 0 Start Date: 8/25/23 Status: Ordered take 0.5 tablet by m out every twenty-four hours CeleXA 40 MG 0.5 tablet Orally Once a day Active dexpanthenol 2 mg/ml / niacinamide 100 mg/ml / riboflavin 2 mg/ml / thiamine 100 mg/ml / vitamin b6 2 mg/ml injectable solution (1 source) vit F0-[id number]-B5- B6 (B-COMPLEX INJECTION) 833-7-989-2-2 mg/mL solution B-Complex 1 QD 0 Active fluticasone propionate 0.05 mg/actuat metered dose nasal spray (20 sources) Corticosteroid Start: 05-26-2025 Fluticasone Propionate 50 mcg/actuation spray,suspension Active 2 SPRAY INTRANASAL daily May 26, 2025 12:00am Complies with drug therapy Start: 03-04-2025 take 2 spray(s) nasa l route once [...] replace cap. 16 g 2 10/25/2024 Active 60 actuat fluticasone propionate 0.5 mg/actuat / salmeterol 0.05 mg/actuat dry powder inhaler (9 sources) Corticosteroid, beta2-Adrenergic Agonist Start: 05-23-2025 take 1 puff(s) by inhalation once Fluticasone-Salmeterol (Advair Diskus) 500-50 MCG/ACT aerosol powder Indications: Chronic obstructive pulmonary disease, unspecified COPD type (HCC) Inhale 1 puff every 12 (twelve) hours 05/23/2025 Active Start: 05-12-2025 Fluticasone Pr opion-Salmeterol 500-50 mcg/dose blister with device Active INHALATION May 12, 2025 12:00am Complies with drug therapy Start: 04-18-2025 End: 05-23-2025 Advair Diskus 500-50 MCG/ACT aerosol powder 1 puff every 12 (twelve) hours 04/18/2025 05/23/2025 Discontinued furosemide 40 mg oral tablet (20 sources) Loop Diuretic Start: 05-01-2025 take 1 tablet by mouth once daily as needed furosemide (Lasix) 40 MG tablet Indications: Bilateral leg edema TAKE 1 TABLET BY MOUTH DAILY NEEDED 30 tablet 3 05/01/2025 Active Start: 04-23-2024 take 1 tablet by ambika th once daily as needed furosemide (Lasix) 40 MG tablet Indications: Bilateral leg edema TAKE 1 TABLET BY MOUTH DAILY NEEDED 30 tablet 3 12/17/2024 Active ibuprofen 200 mg oral tablet (5 sources) Nonsteroidal Anti-inflammatory Drug Start: 09-07-2024 take 2 tablets by mouth every six hours as needed Ibuprofen 200 mg tablet Active 400 MG PO Every 6 hours as needed September 07, 2024 12:00am Complies with drug therapy Start: 09-07-2024 take 400 mg by mouth [...] oral tablet (20 sources) Antiemetic Start: 04-13-2024 End: 05-14-2025 take 1 tablet by mouth four times daily at bedtime meclizine (Antivert) 25 MG tablet Indications: Dizziness TAKE 1 TABLET BY MOUTH FOUR TIMES DAILY (IN THE MORNING, at noon, IN THE EVENING and BEFORE bedtime) 30 tablet 3 05/14/2025 Active Start: 07-15-2023 meclizine 25 m g Tab Refills(s) 0 Start Date: 07/15/23 Status: Ordered meloxicam 7.5 mg oral tablet (15 sources) Nonsteroidal Anti-inflammatory Drug Start: 04-23-2024 End: 09-07-2024 take 1 tablet by mouth once daily Meloxicam 7.5 mg tablet Active 7.5 MG PO Daily September 07, 2024 12:00am Complies with drug therapy meloxicam 15 mg tablet,disintegrating 1 tablet 0 [...] MUSCLE SPASM 42 tablet 11/19/2024 Active Start: 09-07-2024 take 1 tablet by ambika th three times daily as needed for muscle spasms methocarbamol (Robaxin) 750 MG tablet Indications: Chronic pain of right knee Take 1 tablet (750 mg) by mouth 3 (three) times a day as needed for muscle spasms 42 tablet 11/09/2024 Active 24 hr metoprolol succinate 25 mg extended release oral tablet (20 sources) beta-Adrenergic Daisy Start: 05-26-2025 take 1 tablet by mouth once daily Metoprolol Succinate 25 mg tablet extended release 24 hr Active 25 MG PO daily May 26, 2025 12:00am Complies with drug therapy Start: 02-20-2025 take 1 tablet by ambika th once daily metoprolol succinate XL (Toprol-XL) 25 MG 24 hr tablet Take 25 mg by mouth Daily 02/20/2025 Active Start: 01-13-2025 End: 02-12-2025 take 1 tablet by mouth every twenty-four hours in the morning metoprolol succinate XL (Toprol-XL) 25 MG 24 hr tablet Take 25 mg by mouth in the morning. 01/13/2025 02/12/2025 Active Multiple Vitamins-Minerals (men's 50+ multivitamin w/min) tablet (20 sources) End: 04-26-2025 take 1 tablet by mouth once daily Multiple Vitamins-Minerals (men's 50+ multivitamin w/min) tablet Take 1 tablet by mouth Daily 04/26/2025 Discontinued take 1 tablet by mouth once violeta y Multiple Vitamins-Minerals (men's 50+ multivitamin w/min) tablet Take 1 tablet by mouth Daily Active Multivitamin preparation (7 sources) Start: 04-23-2024 take 1 tablet by mouth once daily Multivitamin Active 1 TAB PO Daily April 23, 2024 12:00am Multivitamin tablet (1 source) Start: 04-23-2024 take 1 tablet by mouth once daily Multivitamin tablet Active 1 TAB PO Daily April 23, 2024 12:00am Complies with drug therapy multivitamin-mineral s-lutein (MULTIVITAMIN 50 PLUS) tablet (1 source) multivitamin-min era ls-lutein (MULTIVITAMIN 50 PLUS) tablet daily. 0 Active nitroglycerin 0.4 mg sublingual tablet (20 sources) Nitrate Vasodilator Start: 08-09-2024 Nitroglycerin 0.4 mg tablet, sublingual Active 0.4 MG SUBLINGUAL Q5M as needed August 09, 2024 12:00am do not exceed 3 doses per episode Complies with drug therapy Start: 01-11-2024 nitroglycerin (Nitrostat) 0.3 MG SL tablet Indications: Coronary arteriosclerosis , Chest pain due to CAD Place 1 tablet (0.3 mg) under the tongue every 5 (five) minutes if needed for chest pain 30 tablet 01/11/2024 Active omeprazole 40 mg delayed release oral capsule (3 sources) Proton Pump Inhibitor Start: 05-26-2025 take 1 capsule by mouth once Omeprazole 40 mg capsule,delayed release(DR/EC) Active 40 MG PO Once May 26, 2025 12:00am Complies with drug therapy Start: 05-23-2025 take 1 capsule by mo [facility] once daily before mealtime omeprazole (PriLOSEC) [address] capsule Indications: Hiatal hernia with GERD without esophagitis Take 1 capsule (40 mg) by mouth Daily before meals Do not crush or chew. 30 capsule 5 05/23/2025 Active PHENobarbital 32 mg oral tablet (20 sources) Start: 02-11-2025 take 2 tablets by mouth in the morning, then take 2 tablets by mouth in the evening, then take 2 tablets by mouth at bedtime PHENobarbital (Luminal) 32.4 MG tablet Indications: Seizure disorder (HCC) Take 2 tablets (64.8 mg) [...] tablet 1 07/18/2024 Active Start: 04-23-2024 take 1 tablet by ambika th three times daily Phenobarbital 32.4 mg tablet Active 32.4 MG PO Three times daily April 23, 2024 12:00am Complies with drug therapy Start: 01-23-2024 End: 09-25-2024 take 2 tablets [...] 2024 3:02pm Start: 04-23-2024 End: 09-07-2024 take 2 capsules by mouth twice daily Phenytoin Sodium Extended 100 mg capsule Discontinued 200 MG PO Twice daily April 23, 2024 12:00am September 07, 2024 3:05pm Start: 04-23-2024 End: 09-07-2024 take 200 mg by mouth twice daily Phenytoin Sodium Exte nded Discontinued 200 MG PO Twice daily April 23, 2024 12:00am September 07, 2024 3:05pm Start: 02-15-2024 End: 02-18-2026 take 2 capsules by mouth in the morning, then take 2 capsules by mouth in the evening, then take 2 capsules by mouth at bedtime phenytoin ER (Dilantin) 100 MG capsule Indications: Seizure disorder (HCC) TAKE 2 CAPSULES BY MOUTH IN THE MORNING, then TAKE 2 CAPSULES BY MOUTH IN THE EVENING and then TAKE 2 CAPSULES BY MOUTH BEFORE bedtime 1080 capsule 2 02/18/2025 02/18/2026 Active Start: 07-15-2023 phenytoin 100 mg Cap-ER Refills(s) 0 Start Date: 07/15/23 Status: Ordered Start: 08-30-2022 phenytoin (DIL ANTIN) 100 mg ER capsule take 2 capsules three times a day 360 capsule 1 08/30/2022 Active take 1 capsule by mo [facility] every twelve hours Phenytoin Sodium Extended 100 MG 1 capsule Orally every 12 hrs Active predniSONE 50 mg oral tablet (8 sources) Start: 10-25-2024 End: 10-31-2024 take 1 tablet by mouth once daily predniSONE (Deltasone) 50 MG tablet Indications: Chronic pain of right knee Take 1 tablet (50 mg) by mouth Daily for 6 days 6 tablet 10/25/2024 10/31/2024 Active Start: 08-16-2024 End: 09-07-2024 take 1 tablet by mouth twice daily Prednisone 20 mg tablet Discontinued 20 MG PO Twice daily 08 25August 16, 2024 12:00am September 07, 2024 3:02pm spironolactone 25 mg oral tablet (18 sources) Aldosterone Antagonist Start: 05-26-2025 take 1 tablet by mouth once daily Spironolactone 25 mg tablet Active 25 MG PO Daily May 26, 2025 12:00am Complies with drug therapy Start: 05-21-2025 take 1 tablet by ambika once daily spironolactone (Aldactone) 25 MG tablet Indications: Bilateral leg edema TAKE 1 TABLET BY MOUTH DAILY 30 tablet 3 05/21/2025 Active Start: 02-20-2025 take 1 tablet by ambika once daily spironolactone (Aldactone) 25 MG tablet Indications: Bilateral leg edema Take 1 tablet (25 mg) by mouth Daily 30 tablet 3 02/20/2025 Active triamcinolone acetonide 5 mg/ml topical cream (16 sources) Corticosteroid Start: 05-26-2025 Triamcinolone Acetonide 0.5 % cream Active APPLIC TOPICAL May 26, 2025 12:00am Complies with drug therapy Start: 02-21-2025 triamcinolone (Kenalog) 0.5 % cream Indications: Dyshidrotic eczema Apply topically 3 (three) times a day 60 g 2 02/21/2025 Active 30 actuat umeclidinium 0.0625 mg/actuat dry powder inhaler (13 sources) Anticholinergic Start: 05-12-2025 Umeclidinium ( Incruse Ellipta) 62.5 mcg/actuation blister with device Active INHALATION May 12, 2025 12:00am Complies with drug therapy Start: 03-28-2025 take 1 puff(s) by in halation once daily Umeclidinium [place] (Incruse Ellipta) 62.5 MCG/ACT aerosol powder Indications: Chronic obstructive pulmonary disease, unspecified COPD type (HCC) Inhale 1 puff Daily 30 each 5 03/28/2025 Active Completed/Discontinued Medications Medication Drug Class(es) Dates Sig [...] Multivitami n Not-Taking Mens Multivitami n Active ofloxacin 3 mg/ml ophthalmic solution (1 source) Quinolone Antimicrobial Start: 10-17-2024 End: 10-17-2024 take 0.3 drop(s) into the eye(s) four times daily Ofloxacin 0.3 % drops Discontinued 2 DROPS EYE-BOTH Four times daily 10 October 17, 2024 1:00am October 17, 2024 3:04pm potassium chloride 20 meq extended release oral tablet (20 sources) Start: 06-06-2024 End: 02-20-2025 take 1 tablet by mouth once daily potassium chloride CR (K-Tab) 20 MEQ ER tablet Indications: Bilateral leg edema take 1 tablet by mouth once daily if needed 30 tablet 3 06/06/2024 02/20/2025 Discontinued Start: 04-23-2024 Potassium Chlo ride 20 mEq tablet extended release Active MEQ PO April 23, 2024 12:00am Complies with drug therapy Start: 04-23-2024 Potassium Chlo ride Active MEQ [...] morning. 30 capsule 5 03/27/2025 03/28/2025 Discontinued vitamin b12 5 mg oral capsule (17 sources) Vitamin B12 Start: 04-23-2024 End: 10-17-2024 take 1 capsule by mouth once daily Cyanocobalamin (Vitamin B-12) 5,000 mcg capsule Discontinued 5000 MCG PO Daily April 23, 2024 12:00am October 17, 2024 3:06pm End: 10-25-2024 take 1 tablet by mouth in the morning cyanocobalamin (Vitamin B-12) 1000 MCG tablet Take 1,000 mcg by mouth in the morning. 10/25/2024 Discontinued Vitamin B12 Acti ve Problems Active Problems Problem Classification Problem Date Documented Da te Episodic/Chronic Abdominal hernia (4 sources) Gastroesophageal reflux disease with hiatal hernia; Translations: [Diaphragmatic hernia without obstruction or gangrene] Onset: 05-23-2025 Episodic Bacterial infection; unspecified site (8 sources) Rheumatic fever; Translations: [Rheumatic fever without heart involvement] 04-23-2024 Episodic Biliary tract disease (8 sources) Disorder of gallbladder; Translations: [Disease of gallbladder, unspecified] 04-23-2024 Episodic Cancer of bladder (20 sources) Malignant tumor of urinary bladder; Translations: [Cancer in situ of urinary bladder] Onset: 8 07-15-2023 Chronic Cancer of bladder (1 source) Personal history of malignant neoplasm of bladder; Translations: [PERSONAL HX MALIG NEOPLASM BLADDER] Onset: 3 Episodic Cancer of testis (1 source) Personal history of malignant neoplasm of testis; Translations: [PERSONAL HX MALIG NEOPLASM TESTIS] Onset: 3 Episodic Cancer; other and unspecified primary (1 source) H/O: malignant neoplasm 07-15-2023 Episodic Chronic obstructive pulmonary disease and bronchiectasis (20 sources) Chronic obstructive lung disease; Translations: [Chronic obstructive pulmonary disease, unspecified] Onset: 5 02-28-2025 Chronic Conditions associated with dizziness or vertigo (5 sources) Dizziness and giddiness; Translations: [Dizziness] Onset: 2 Episodic Coronary atherosclerosis and other heart disease (20 sources) Atherosclerotic heart disease of [place] coronary artery without angina pectoris; Translations: [Coronary arteriosclerosis] Onset: 0 Resolved: 5 11-29-2023 Chronic Disorders of lipid metabolism (20 sources) Mixed hyperlipidemia; Translations: [Pure hypercholesterolemia, unspecified] Onset: 0 07-15-2023 Chronic E Codes: Fall (3 sources) Fall on same level, unspecified, initial encounter; Translations: [Unspecified fall, initial encounter] Onset: 2 10-17-2024 Episodic Epilepsy; convulsions (20 sources) Other epilepsy, not intractable, without status epilepticus; Translations: [Epilepsy, unspecified, not intractable, without status epilepticus] Onset: 2 04-23-2024 Chronic Essential hypertension (20 sources) Essential (primary) hypertension; Translations: [Benign essential hypertension] Onset: 5 Chronic Fracture of upper limb (1 source) Displaced fracture of head of left radius, initial encounter for closed fracture; Translations: [DSPL FX HEAD LT RADIUS INIT CLOS FX] Onset: 3 Episodic Joint disorders and dislocations; trauma-related (20 sources) Derangement of right knee; Translations: [Unspecified internal derangement of right knee] Onset: 2 10-25-2024 Chronic Malignant neoplasm without specification of site (9 sources) Malignant neoplastic disease; 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, unspecified] Onset: 8 04-23-2024 Chronic Mood disorders (20 sources) Chronic depression; Translations: [Chronic depression] Onset: 3 04-23-2024 Chronic Osteoarthritis (10 sources) Unspecified osteoarthritis, unspecified site; Translations: [Arthritis] Onset: 2 04-23-2024 Chronic Other aftercare (1 source) snf (current) use of aspirin; Translations: [USP CURRENT USE OF ASPIRIN] Onset: 3 Episodic Other aftercare (1 source) Other terminal block assembler (current) drug therapy; Translations: [OTH RN PEDIATRIC CURRENT DRUG THERAPY] Onset: 3 Episodic Other and unspecified benign neoplasm (12 sources) History of polyp of colon; Translations: [Personal history of colonic polyps] Onset: 0 04-23-2024 Episodic Other bone disease and musculoskeletal deformities (1 source) Other specified disorders of bone density and structure, unspecified site; Translations: [OTH D/O BONE DEN STRUCT UNS SITE] Onset: 2 Episodic Other connective tissue disease (11 sources) Dupuytren's contracture; Translations: [Palmar fascial fibromatosis [Dupuytren]] 04-23-2024 Episodic Other connective tissue disease (2 sources) Arthrodesis status; Translations: [ARTHRODESIS STATUS] Onset: 2 Episodic Other ear and sense organ disorders (2 sources) Sensorineural hearing loss, bilateral; Translations: [Sensorineural hearing loss, bilateral] 10-30-2024 Chronic Other ear and sense organ disorders (1 source) Otitis externa of left ear; Translations: [Unspecified otitis externa, left ear] 05-26-2025 Chronic Other ear and sense organ disorders (8 sources) Impacted cerumen, bilateral; Translations: [Impacted cerumen] Onset: 2 Resolved: 2 Episodic Other ear and sense organ disorders (1 source) Impacted cerumen, right ear; Translations: [IMPACTED CERUMEN RIGHT EAR] Onset: 2 Episodic Other ear and sense organ disorders (9 sources) Impacted cerumen; Translations: [Impacted cerumen, bilateral] 04-23-2024 Episodic Other ear and sense organ disorders (1 source) Impacted cerumen of bilateral ears; Translations: [Impacted cerumen, bilateral] 04-23-2024 Episodic Other gastrointestinal disorders (6 sources) Dysphagia; Translations: [Dysphagia, unspecified] Onset: 5 04-26-2025 Episodic Other gastrointestinal disorders (1 source) Dysphagia, unspecified; Translations: [Dysphagia, unspecified] Onset: 5 Episodic Other lower respiratory disease (11 sources) Dyspnea on exertion; Translations: [Shortness of breath] Onset: 5 01-21-2025 Episodic Other lower respiratory disease (2 sources) Other forms of dyspnea; Translations: [Other forms of dyspnea] Onset: 4 Episodic Other nervous system disorders (11 sources) Toxic polyneuropathy; 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 Other nervous system disorders (2 sources) Polyneuropathy due to other toxic agents Onset: 2 Resolved: 2 Chronic Other nervous system disorders (1 source) Sequelae of toxic polyneuropathy; 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] Onset: 2 Chronic Other nervous system disorders (1 source) Polyneuropathy, unspecified; Translations: [POLYNEUROPATHY UNSPECIFIED] Onset: 2 Chronic Other nervous system disorders (20 sources) Neuropathy; Translations: [Polyneuropathy, unspecified] Onset: 0 04-23-2024 Chronic Other nervous system disorders (2 sources) Other chronic pain; Translations: [Other chronic pain] Onset: 4 Chronic Other non-traumatic joint disorders (3 sources) Pain in left hip; Translations: [PAIN IN LEFT HIP] Onset: 3 Episodic Other non-traumatic joint disorders (7 sources) Pain in elbow; Translations: [Pain in left elbow] 05-15-2024 Episodic Other non-traumatic joint disorders (20 sources) Pain in right knee; Translations: [Right knee pain] Onset: 4 09-07-2024 Episodic Other nutritional; endocrine; and metabolic disorders (1 source) Hypocalcemia; Translations: [HYPOCALCEMIA] Onset: 2 Chronic Other nutritional; endocrine; and metabolic disorders (1 source) Obesity, unspecified; Translations: [OBESITY UNSPECIFIED] Onset: 2 Chronic Other nutritional; endocrine; and metabolic disorders (20 sources) Obesity; Translations: [Obesity, unspecified] Onset: 1 04-23-2024 Chronic Other nutritional; endocrine; and metabolic disorders (20 sources) Severe obesity; Translations: [Class 3 severe obesity due to excess calories with serious comorbidity and body mass index (BMI) of 40.0 to 44.9 in adult ([facility])] Onset: 1 11-22-2024 Chronic Other upper respiratory disease (2 sources) Allergic rhinitis, unspecified; Translations: [Allergic rhinitis, cause unspecified] 08-16-2024 Chronic Other upper respiratory disease (20 sources) Deviated nasal septum; Translations: [Deviated nasal septum] Onset: 3 10-26-2023 Episodic Other upper respiratory infections (20 sources) Chronic sinusitis, unspecified; Translations: [Chronic rhinitis] Onset: 4 10-25-2024 Chronic Residual codes; unclassified (1 source) Sleep apnea, unspecified; Translations: [SLEEP APNEA UNSPECIFIED] Onset: 2 Chronic Residual codes; unclassified (20 sources) Obstructive sleep apnea syndrome; Translations: [Obstructive sleep apnea (adult) (pediatric)] Onset: 4 02-21-2024 Chronic Residual codes; unclassified (1 source) Sleep apnea; Translations: [Sleep apnea, unspecified] 10-17-2024 Chronic Residual codes; unclassified (1 source) Acquired absence of other specified parts of digestive tract; Translations: [ACQ ABSENCE OTH PART DIGESTV TRACT] Onset: 3 Episodic Residual codes; unclassified (1 source) Pain, unspecified; Translations: [Pain, unspecified] Onset: 4 Episodic Residual codes; unclassified (20 sources) Bilateral lower limb edema; Translations: [Localized edema] Onset: 4 02-21-2024 Episodic Respiratory failure; insufficiency; arrest (adult) (16 sources) Chronic hypoxemic respiratory failure; Translations: [Chronic respiratory failure with hypoxia] Onset: 5 04-02-2025 Chronic Screening and history of mental health and substance abuse codes (1 source) Personal history of nicotine dependence; Translations: [PERSONAL HISTORY OF NICOTINE DEPEND] Onset: 3 Episodic Spondylosis; intervertebral disc disorders; other back problems (20 sources) Degeneration of lumbar intervertebral disc; Translations: [Other intervertebral disc degeneration, lumbar region] Onset: 2 Resolved: 4 Chronic Spondylosis; intervertebral disc disorders; other back problems (20 sources) Pain in thoracic spine; Translations: [Degenerative lumbar spinal stenosis] Onset: 2 11-29-2023 Episodic Sprains and strains (2 sources) Sprain of unspecified site of left knee, initial encounter; Translations: [Sprain of right knee] Onset: 2 09-08-2024 Episodic Superficial injury; contusion (2 sources) Contusion of left hip, initial encounter; Translations: [Abrasion of left elbow, initial encounter] Onset: 3 Episodic Transient cerebral ischemia (8 sources) Transient cerebral ischemia; Translations: [Transient cerebral ischemic attack, unspecified] 04-23-2024 Chronic Unclassified (1 source) CONTACT W/AND (SUSP) EXPOS COVID-19; Translations: [CONTACT W/AND (SUSP) EXPOS COVID-19] Onset: 2 Unclassified (1 source) OTH CRANIAL CEREBROSPINL FLUID LEAK; Translations: [OTH CRANIAL CEREBROSPINL FLUID LEAK] Onset: 2 Unclassified (1 source) LOW BACK PAIN, UNSPECIFIED; Translations: [LOW BACK PAIN, UNSPECIFIED] Onset: 2 Unclassified (2 sources) Chronic pain of right [...] current use of drug therapy; Translations: [Other residential (current) drug therapy] Onset: 11-29-2023 11-29-2023 Episodic Other aftercare (20 sources) Post-discharge follow-up; Translations: [Encounter for follow-up examination after completed treatment for conditions other than malignant neoplasm] Onset: 01-11-2024 Resolved: 02-21-2024 02-21-2024 Episodic Other aftercare (1 source) Patient encounter status; Translations: [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 Exam/Technique: Double contrast upper [...] Westley Motley DO on 05/15/2025 2:[address] [facility] EPITHELIAL CELLSon 5 Epithelial cells LM Ql (Urine sed) Epithelial Cells Moderate [facility] No Panel Informationon 03-09 [facility] RESULT 1on 03-09-2025 RESULT 1 Result 1 Many gram positive cocci. [facility] RESULT 2on 03-09-2025 RESULT 2 Result 2 Few gram positive rods. [facility] RESULT 3on 03-09-2025 RESULT 3 Result 3 GOVERNMENT AFFAIRS RESEARCHER [facility] RESULT 4on 03-09-2025 RESULT 4 Result 4 GOVERNMENT AFFAIRS RESEARCHER [facility] WHITE BLOOD CELLSon 03-09-20 WHITE BLOOD CELLS White Blood Cells [facility] WHITE BLOOD CELLS Many [facility] ECG 12-LEADon 03-08-2025 [place] [address] Electrocardiograph Report Signed Patient: NAZARIO CORTES Jr. MR#: [id number] : 1955 Acct:[id number] Age/Sex: 70 / M ADM Date: 03/07/25 Loc: MS 219-[address]: Anson Manriquez M.D. 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 Measurements Intervals [place] Rate: 78 P: 49 [place]: 174 QRS: 16 QRSD: 84 T: 40 QT: 380 QTc: 414 Interpretive Statements 1100 Sinus rhythm 9110 normal ECG Compared to ECG 02/21/2025 11:34:46 No significant changes Electronically Signed On 03-08-2025 11:51:46 EDT by COLE SMITH M.D. Dictated By: COLE SMITH Signed By: 03/08/25 1152 DD/ 11 TD/TT: Transfer Controller: [facility] Radiology, Radiologist, - 03/08/2025 [place] [address] Electrocardiograph Report Signed Patient: NAZARIO CORTES Jr. MR#: [id number] : 1955 Acct:[id number] Age/Sex: 70 / M ADM Date: 03/07/25 Loc: MS 219-[address]: Anson Manriquez M.D. 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 Measurements Intervals [place] Rate: 78 P: 49 [place]: 174 QRS: 16 QRSD: 84 T: 40 QT: 380 QTc: 414 Interpretive Statements 1100 Sinus rhythm 9110 normal ECG Compared to ECG 02/21/2025 11:34:46 No significant changes Electronically Signed On 03-08-2025 11:51:46 EDT by COLE SMITH M.D. Dictated By: COLE SMITH Signed By: 03/08/25 1152 DD/ 11 TD/TT: Transfer Controller: [facility] [employer] ECG 12-LEADOrdered By: Radio logist Radiology on 03-08-2025 [facility] [employer] Work Phone: ECG 12-LEADon 03-07-2025 Radiology Study observation (narrative) [facility] RT PULMONARY FUNCTION TESTon 02-27-2025 [place] [address] Respiratory Report Signed Patient: NAZARIO CORTES Jr. MR#: [id number] : 1955 Acct:[id number] Age/Sex: 70 / M ADM Date: 02/22/25 Loc: CARD Attending Dr: Jignesh Gonsalez M.D. Ordering Physician: Jignesh Gonsalez M.D. 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 MR#: [id number] : 1955 Acct:[id number] Age/Sex: 70 / M ADM Date: 02/22/25 Loc: CARD Attending Dr: Jignesh Gonsalez M.D. Ordering Physician: Jignesh oGnsalez M.D. 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 1955 M Date Provider Department Center 01/22/2025 271-ARNAUD LYONS [facility] Family History Problem Relation Age of Onset Supraventricular tachycardia Mother Stroke Father Kidney cancer Sister Diabetes Sister COPD Brother Family Status - Relation Status Age at Mother Father Sister Brother Level of Service:13573 [place] OFFICE/OUTPATIENT ESTABLISHED LOW MDM 20 MIN Normal [facility] BASIC METABOLIC PANELon 12-23 Anion gap [Moles/Vol] 11 mmol/L Normal 7-20 [facility] Comment on above: Performed By: #### L [id number] #### [facility] ([facility]) [address] [place] [address] Calcium [Mass/Vol] 8.8 mg/dL Normal 8.6-10.3 [facility] Comment on above: Performed By: #### L [id number] #### [facility] ([facility]) [address] [place] [address] Chloride [Moles/Vol] 104 mmol/L Normal 98-107 [facility] Comment on above: Performed By: #### L [id number] #### [facility] ([facility]) [address] [place] [address] CO2 [Moles/Vol] 24 mmol/L Normal 21-31 [facility] Comment on above: Performed By: #### L [id number] #### [facility] ([facility]) [address] [place] [address] Creatinine [Mass/Vol] 0.81 mg/dL Normal 0.70-1.30 [facility] Comment on above: Performed By: #### L [id number] #### [facility] ([facility]) [address] [place] [address] GLOMERULAR FILTRATION RATE ML/MIN/1.73 SQ M.PREDICTED 95.4 mL/min/1.73m*2 Normal >60.0 [facility] Comment on above: Result Comment: [facility]???s estimated glomerular filtration rate (eGFR) will [...] individuals. Performed By: #### L [id number] #### [facility] ([facility]) [address] [place] [address] Glucose [Mass/Vol] 114 mg/dL High 70-100 [facility] Comment on above: Performed By: #### L [id number] #### [facility] [address] [place] [address] Potassium [Moles/Vol] 4.2 mmol/L Normal 3.5-5.1 [facility] Comment on above: Performed By: #### L [id number] #### [facility] [address] [place] [address] Sodium [Moles/Vol] 135 mmol/L Low 136-145 [facility] Comment on above: Performed By: #### L [id number] #### [facility] [address] [place] [address] Urea nitrogen [Mass/Vol] 23 mg/dL Normal 7-25 [facility] Comment on above: Performed By: #### L [id number] #### [facility] ([facility]) [address] [place] [address] UREA NITROGEN/CREATININE (MASS RATIO) IN SER/PLAS 28.4 Normal [facility] Comment on above: Performed By: #### L [id number] #### [facility] ([facility]) [address] [place] [address] FOLATEon 01-13-2025 FOLATE (NG/ML) IN SER/PLAS 20.54 ng/mL Normal 6.6-1000 [facility] Comment on above: Performed By: #### L [id number] #### [facility] ([facility]) [address] [place] [address] NURSNOTEon 01-13-2025 NURSNOTE Pt discharged with a ll belongings, discharge paperwork, and questions answered to pt's satisfaction. Normal [facility] VITAMIN B12on 01-13-2025 Cobalamin (Vitamin B12) [Mass/Vol] 353 pg/mL Normal 180-914 [facility] Comment on above: Result Comment: REFE RENCE RANGES: 180-914 pg/mL Normal 145-179 pg/mL Indeterminate <145 pg/mL Deficient Performed By: #### L [id number] #### [facility] [address] [place] [address] 30on 01-12-2025 30 The patient is Moderately [...] comfort level Outcome: Progressing Flowsheets (Taken 01/12/2025 224) Verbalizes/displays adequate comfort level or baseline comfort [...] and behaviors that affect risk of falls [place] fall precautions as indicated by assessment Educate [...] overall improvement and discharge Normal [facility] 30 The patient is Moderately Stable - Low risk of patient condition declining or worsening The patient's goals for the shift include comfort, rest The clinical goals for the shift include vss, safety Normal [facility] B-TYPE NATRIURETIC PEPTIDEon 01-12-2025 Natriuretic peptide B (Bld) [Mass/Vol] 34 pg/mL Normal 0-100 [facility] Comment on above: Performed By: #### L [id number] #### [facility] ([facility]) [address] [place] [address] BASIC METABOLIC PANELon 12-23 Anion gap [Moles/Vol] 10 mmol/L Normal 7-20 [facility] Comment on above: Performed By: #### L [id number] #### [facility] ([facility]) [address] [place] [address] Calcium [Mass/Vol] 8.4 mg/dL Low 8.6-10.3 [facility] Comment on above: Performed By: #### L [id number] #### [facility] ([facility]) [address] [place] [address] Chloride [Moles/Vol] 101 mmol/L Normal 98-107 [facility] Comment on above: Performed By: #### L [id number] #### [facility] ([facility]) [address] [place] [address] CO2 [Moles/Vol] 26 mmol/L Normal 21-31 [facility] Comment on above: Performed By: #### L [id number] #### [facility] ([facility]) [address] [place] [address] Creatinine [Mass/Vol] 0.79 mg/dL Normal 0.70-1.30 [facility] Comment on above: Performed By: #### L [id number] #### [facility] ([facility]) [address] [place] [address] GLOMERULAR FILTRATION RATE ML/MIN/1.73 SQ M.PREDICTED 96.2 mL/min/1.73m*2 Normal >60.0 [facility] Comment on above: Result Comment: [facility]???s estimated glomerular filtration rate (eGFR) will [...] individuals. Performed By: #### L [id number] #### [facility] ([facility]) [address] [place] [address] Glucose [Mass/Vol] 114 mg/dL High 70-100 [facility] Comment on above: Performed By: #### L [id number] #### [facility] ([facility]) [address] [place] [address] Potassium [Moles/Vol] 4.2 mmol/L Normal 3.5-5.1 [facility] Comment on above: Performed By: #### L [id number] #### [facility] [address] [place] [address] Sodium [Moles/Vol] 133 mmol/L Low 136-145 [facility] Comment on above: Performed By: #### L [id number] #### [facility] [address] [place] [address] Urea nitrogen [Mass/Vol] 20 mg/dL Normal 7-25 [facility] Comment on above: Performed By: #### L [id number] #### [facility] ([facility]) [address] [place] [address] UREA NITROGEN/CREATININE (MASS RATIO) IN SER/PLAS 25.3 Normal [facility] Comment on above: Performed By: #### L [id number] #### [facility] ([facility]) [address] [place] [address] CBCon 01-12-2025 Erythrocyte distribution width (RBC) [Ratio] 13.3 % Normal 11.5-15.0 [facility] Comment on above: Performed By: #### L [id number] #### [facility] ([facility]) [address] [place] [address] ERYTHROCYTE MEAN CORPUSCULAR HEMOGLOBIN CONCENTRATION (G/DL) BY AUTOMATED 32.7 g/dL Normal 32.0-35.0 [facility] Comment on above: Performed By: #### L [id number] #### [facility] ([facility]) [address] [place] [address] Hematocrit (Bld) [Volume fraction] 41.0 % Normal 39.0-55.0 [facility] Comment on above: Performed By: #### L [id number] #### [facility] ([facility]) [address] [place] [address] Hemoglobin (Bld) [Mass/Vol] 13.4 g/dL Normal 13.0-17.0 [facility] Comment on above: Performed By: #### L [id number] #### [facility] ([facility]) [address] [place] [address] MCH (RBC) [Entitic mass] 32.8 pg Normal 27.0-33.0 [facility] Comment on above: Performed By: #### L [id number] #### [facility] ([facility]) [address] [place] [address] MCV (RBC) [Entitic vol] 100.2 fL High 82.0-98.0 [facility] Comment on above: Performed By: #### L [id number] #### [facility] ([facility]) [address] [place] [address] PLATELETS (10*3/UL) IN BLOOD AUTOMATED COUNT 197 10*3/uL Normal 150-400 [facility] Comment on above: Performed By: #### L [id number] #### [facility] [address] [place] [address] RBC (Bld) [#/Vol] 4.09 10*6/uL Low 4.20-5.70 [facility] Comment on above: Performed By: #### L [id number] #### [facility] ([facility]) [address] [place] [address] WBC (Bld) [#/Vol] 8.31 10*3/uL Normal 4.00-10.60 [facility] Comment on above: Performed By: #### L [id number] #### [facility] ([facility]) [address] [place] [address] HEMOGLOBIN A1Con 01-12-2025 Glucose [Mass/Vol] 108 mg/dL Normal [facility] Comment on above: Performed By: #### L [id number] #### [facility] ([facility]) [address] [place] [address] HbA1c (Bld) [Mass fraction] 5.4 % Normal 4.0-6.0 [facility] Comment on above: Performed By: #### L [id number] #### [facility] ([facility]) [address] [place] [address] HEPATIC FUNCTION PANELon Albumin [Mass/Vol] 3.7 g/dL Normal 3.5-5.7 [facility] Comment on above: Performed By: #### L [id number] ####[facility] ([facility])[address] [place] [address] ALP [Catalytic activity/Vol] 152 U/L High 34-104 [facility] Comment on above: Performed By: #### L [id number] ####[facility] ([facility])[address] [place] [address] ALT [Catalytic activity/Vol] 20 U/L Normal 7-52 [facility] Comment on above: Performed By: #### L [id number] ####[facility] ([facility])[address] [place] [address] AST [Catalytic activity/Vol] 25 U/L Normal 13-39 [facility] Comment on above: Performed By: #### L [id number] ####[facility] [place] [address] Bilirubin [Mass/Vol] 0.5 mg/dL Normal 0.3-1.0 [facility] Comment on above: Performed By: #### L [id number] ####[facility] ([facility])[address] [place] [address] Magnesium [Mass/Vol] 0.1 mg/dL Normal 0-0.2 [facility] Comment on above: Performed By: #### L [id number] ####[facility] ([facility])[address] [place] [address] Protein [Mass/Vol] 8.1 g/dL Normal 6.0-8.3 [facility] Comment on above: Performed By: #### L [id number] ####[facility] ([facility])[address] [place] [address] LIPID PANELon 01-12-2025 CHOL/HDL 3.3 mg/dL Normal [facility] Comment on above: Performed By: #### L [id number] ####[facility] ([facility])[address] [place] [address] Cholesterol [Mass/Vol] 140 mg/dL Normal 120-200 [facility] Comment on above: Performed By: #### L [id number] ####[facility] ([facility])[address] [place] [address] Magnesium [Mass/Vol] 230 mg/dL High 40-149 [facility] Comment on above: Result Comment: TRIG LYCERIDE REFERENCE RANGE: 20 YEARS AND OLDER CARDIOVASCULAR RISK LESS THAN 150 mg/dL LOW RISK 150 TO 199 mg/dL BORDERLINE RISK 200 mg/dL AND GREATER HIGH RISK Performed By: #### L [id number] ####[facility] ([facility])[address] [place] [address] Magnesium [Mass/Vol] 51 mg/dL Normal 0-160 [facility] Comment on above: Performed By: #### L [id number] ####[facility] ([facility])[address] [place] [address] Magnesium [Mass/Vol] 43 mg/dL Normal 23-92 [facility] Comment on above: Performed By: #### L [id number] ####[facility] ([facility] [place] [address] NON HDL CHOL. (LDL+VLDL) 97 Normal [facility] Comment on above: Performed By: #### L [id number] ####[facility] ([facility])[address] [place] [address] TOTAL VLDL-C 46 mg/dL High 0-40 [facility] Comment on above: Performed By: #### L [id number] ####[facility] ([facility])[address] [place] [address] MAGNESIUMon 01-12-2025 Magnesium [Mass/Vol] 1.9 mg/dL Normal 1.9-2.7 [facility] Comment on above: Performed By: #### L [id number] #### [facility] ([facility]) [address] [place] [address] 30on 01-11-2025 30 The patient is Moderately [...] or improved Outcome: Progressing Normal [facility] 30 Daily Case Managemen t Update Multidisciplinary rounds have been completed. Barriers to Discharge: Patient [facility], and was transferred to [facility] for heart cath. Patient to go [...] Level of Consultation Consultation and Management 01/11/25136 [facility] 30 The patient is Moderately [...] exacerbated and prevent overall improvement and discharge [facility] 30 The patient is Moderately Stable - Low risk of patient condition declining or worsening The patient's goals for the shift include Comfort The clinical goals for the shift include VSS [facility] Marguerite 01-11-2025 ANES -- Attestation signed by Arnaud Lyons MD at 01/11/2025 1:02 PM Arnaud Lyons MD, MPH, [facility], [facility], [facility] Interventional Cardiology Pager Email: [email or web address] Patient: Nazario Cortes Procedure Information Date/Time: 01/11/25 1554 Procedure: Coronary angiography Location: [facility] DIRECTOR CORPORATE COMMUNICATIONS 3 / [facility] (Cath) Providers: Arnaud Lyons MD [...] attending. Additional Equipment Requests Normal [facility] APTTon 01-11-2025 ACTIVATED PARTIAL THROMBOPLASTIN TIME IN PPP BY COAGULATION ASSAY 26.3 Seconds Normal 25.0-35.0 [facility] Comment on above: Order Comment: Basel ine aPTT before initiating heparin infusion. Result Comment: Clin ical significance of the APTT is questionable in the presence of heparin. Performed By: #### L [id number] #### [facility] ([facility]) [address] [place] [address] BASIC METABOLIC PANELon 12-23 Anion gap [Moles/Vol] 9 mmol/L Normal 7-20 [facility] Comment on above: Performed By: #### L [id number] #### [facility] ([facility]) [address] [place] [address] Calcium [Mass/Vol] 8.3 mg/dL Low 8.6-10.3 [facility] Comment on above: Performed By: #### L [id number] #### [facility] ([facility] [address] [place] [address] Chloride [Moles/Vol] 103 mmol/L Normal 98-107 [facility] Comment on above: Performed By: #### L [id number] #### [facility] ([facility]) [address] [place] [address] CO2 [Moles/Vol] 26 mmol/L Normal 21-31 [facility] Comment on above: Performed By: #### L [id number] #### [facility] [address] [place] [address] Creatinine [Mass/Vol] 0.81 mg/dL Normal 0.70-1.30 [facility] Comment on above: Performed By: #### L [id number] #### [facility] ([facility]) [address] [place] [address] GLOMERULAR FILTRATION RATE ML/MIN/1.73 SQ M.PREDICTED 95.4 mL/min/1.73m*2 Normal >60.0 [facility] Comment on above: Result Comment: [facility]???s estimated glomerular filtration rate (eGFR) will [...] group of individuals. Performed By: #### L [id number] #### [facility] [address] [place] [address] Glucose [Mass/Vol] 105 mg/dL High 70-100 [facility] Comment on above: Performed By: #### L [id number] #### [facility] ([facility]) [address] [place] [address] Potassium [Moles/Vol] 4.1 mmol/L Normal 3.5-5.1 [facility] Comment on above: Performed By: #### L [id number] #### [facility] ([facility]) [address] [place] [address] Sodium [Moles/Vol] 134 mmol/L Low 136-145 [facility] Comment on above: Performed By: #### L [id number] #### [facility] ([facility]) [address] [place] [address] Urea nitrogen [Mass/Vol] 18 mg/dL Normal 7-25 [facility] Comment on above: Performed By: #### L [id number] #### [facility] ([facility]) [address] [place] [address] UREA NITROGEN/CREATININE (MASS RATIO) IN SER/PLAS 22.2 Normal [facility] Comment on above: Performed By: #### L [id number] #### [facility] ([facility]) [address] [place] [address] CBC WITH AUTO DIFFERENTIALon 01-11-2025 Basophils (Bld) [#/Vol] 0.08 10*3/uL Normal 0.00-0.20 [facility] Comment on above: Performed By: #### L [id number] #### [facility] ([facility]) [address] [place] [address] Basophils/100 WBC (Bld) 0.9 % Normal 0.0-1.0 [facility] Comment on above: Performed By: #### L [id number] #### [facility] ([facility]) [address] [place] [address] Eosinophils (Bld) [#/Vol] 0.56 10*3/uL High 0.00-0.50 [facility] Comment on above: Performed By: #### L [id number] #### [facility] ([facility]) [address] [place] [address] Eosinophils/100 WBC (Bld) 6.5 % High 0.0-6.0 [facility] Comment on above: Performed By: #### L [id number] #### [facility] [address] [place] [address] Erythrocyte distribution width (RBC) [Ratio] 13.5 % Normal 11.5-15.0 [facility] Comment on above: Performed By: #### L [id number] #### [facility] ([facility]) [address] [place] [address] ERYTHROCYTE MEAN CORPUSCULAR HEMOGLOBIN CONCENTRATION (G/DL) BY AUTOMATED 32.7 g/dL Normal 32.0-35.0 [facility] Comment on above: Performed By: #### L [id number] #### [facility] ([facility]) [address] [place] [address] Hematocrit (Bld) [Volume fraction] 39.8 % Normal 39.0-55.0 [facility] Comment on above: Performed By: #### L [id number] #### [facility] [address] [address] Hemoglobin (Bld) [Mass/Vol] 13.0 g/dL Normal 13.0-17.0 [facility] Comment on above: Performed By: #### L [id number] #### [facility] [address] [place] [address] Immature granulocytes (Bld) [#/Vol] 0.06 10*3/uL Normal 0.00-0.20 [facility] Comment on above: Performed By: #### L [id number] #### [facility] ([facility]) [address] [place] [address] Immature granulocytes/100 WBC (Bld) 0.7 % Normal 0.0-1.0 [facility] Comment on above: Performed By: #### L [id number] #### [facility] ([facility]) [address] [place] [address] Lymphocytes (Bld) [#/Vol] 1.53 10*3/uL Normal 1.20-4.00 [facility] Comment on above: Performed By: #### L [id number] #### [facility] ([facility]) [address] [place] [address] Lymphocytes/100 WBC (Bld) 17.7 % Low 20.0-45.0 [facility] Comment on above: Performed By: #### L [id number] #### [facility] ([facility]) [address] [place] [address] MCH (RBC) [Entitic mass] 33.3 pg High 27.0-33.0 [facility] Comment on above: Performed By: #### L [id number] #### [facility] ([facility]) [address] [place] [address] MCV (RBC) [Entitic vol] 102.1 fL High 82.0-98.0 [facility] Comment on above: Performed By: #### L [id number] #### [facility] ([facility]) [address] [place] [address] Monocytes (Bld) [#/Vol] 0.78 10*3/uL Normal 0.10-1.00 [facility] Comment on above: Performed By: #### L [id number] #### [facility] ([facility]) [address] [place] [address] Monocytes/100 WBC (Bld) 9.0 % Normal 5.0-12.0 [facility] Comment on above: Performed By: #### L [id number] #### [facility] ([facility]) [address] [place] [address] Neutrophils (Bld) [#/Vol] 5.62 10*3/uL Normal 1.60-7.60 [facility] Comment on above: Performed By: #### L [id number] #### [facility] [address] [place] [address] Neutrophils/100 WBC (Bld) 65.2 % Normal 40.0-72.0 [facility] Comment on above: Performed By: #### L [id number] #### [facility] ([facility]) [address] [place] [address] NRBC (PER 100 WBCS) BY AUTOMATED COUNT 0.0 % Normal 0 [facility] Comment on above: Performed By: #### L [id number] #### [facility] ([facility]) [address] [place] [address] PLATELETS (10*3/UL) IN BLOOD AUTOMATED COUNT 187 10*3/uL Normal 150-400 [facility] Comment on above: Performed By: #### L [id number] #### [facility] ([facility]) [address] [place] [address] RBC (Bld) [#/Vol] 3.90 10*6/uL Low 4.20-5.70 [facility] Comment on above: Performed By: #### L [id number] #### [facility] ([facility]) [address] [place] [address] WBC (Bld) [#/Vol] 8.63 10*3/uL Normal 4.00-10.60 [facility] Comment on above: Performed By: #### L [id number] #### [facility] ([facility]) [address] [place] [address] CONSULTon 01-11-2025 CONSULT -- Attestation signed by [...] at least mild coronary artery disease at [facility]. Considering his current presentation we will obtain an echocardiogram. He already underwent cardiac angiogram on 01/11 which showed moderate but heavily calcified triple-vessel disease. He will also need aggressive medical therapy with aspirin, statin and likely colchicine as well in light of the recently published COL C OT trial. Darrell Sinclair MD, ScM, MSc Cardiac Trichologist Email: [email or web address] Cardiology Consult Note Reason for Consult: unstable angina HPI: Nazario Cortes is a 69 y.o. male with a past medical history significant for reported coronary artery disease (last cath showed 20-30% stenosis in 2008 at [facility]), hyperlipidemia, depression, and seizures. Reported tumor [...] chest pain. He was initially brought to [facility] and subsequently transferred to [facility] for cardiac catheterization. At present, the patient reports mild chest pain but denies shortness of breath, nausea, vomiting, dizziness, or palpitations. He reports a smoking history but quit in 1996. Blood pressure 142/84, heart rate 70s, EKG sinus rhythm with 1st degree AV block [place] interval 210. Cardiology ROS: Negative except as mentioned. Past Medical History He has a past medical history of Bladder cancer ([facility]), Cholelithiasis, Colon polyp, Depression, Dyslipidemia, Hearing loss, [...] 40 mg, oral, Daily PRN HYDROcodone-acetaminop hen ([place]) 5-325 mg tablet take 1 tablet by mouth four times a day if needed for severe pain for up to 7 days meclizine (Antivert) 25 mg tablet take 1 tablet by mouth four times a day if needed for dizziness methocarbamol (Robaxin) 750 mg tablet take 1 tablet by mouth four times a day if needed for muscle spasm jssplfigqjfx-deoq-wjyw rals-folic acid (Multivitamin 50 Plus) tablet Every 24 hours nitroglycerin (NITROSTAT) 0.3 mg, sublingual PHENobarbital (LUMINAL) 64.8 mg, oral, 3 times daily RT phenytoin ER (Dilantin) 100 mg capsule take 2 capsules by mouth three times a day potassium chloride CR (K-Tab) 20 mEq ER table (more content not included)... Normal [facility] HPon 01-11-2025 HP -- Attestation signed [...] me. Additional Comments: Arnaud Lyons MD, MPH, [facility], [facility], [facility] Interventional Cardiology Pager Email: [email or web address] H&P reviewed. The patient was examined and there are no changes to the H&P. Will proceed with coronary angiogram for further assessment. Procedure's details, risks and benefits discussed with the patient and he's agreeable. Normal [facility] PLATELET COUNTon 01-11-2025 PLATELETS (10*3/UL) IN BLOOD AUTOMATED COUNT 177 10*3/uL Normal 150-400 [facility] Comment on above: Performed By: #### L [id number] #### [facility] ([facility]) [address] [place] [address] TROPONIN Ion 01-11-2025 Troponin I.cardiac [Mass/Vol] 0.01 ng/mL Normal 0.00-0.04 [facility] Comment on above: Performed By: #### L [id number] #### [facility] ([facility]) [address] [facility] [place] [address] Troponin I.cardiac [Mass/Vol] 0.01 ng/mL Normal 0.00-0.04 [facility] Comment on above: Performed By: #### L [id number] #### [facility] ([facility]) [address] [facility] [place] [address] Troponin I.cardiac [Mass/Vol] 0.01 ng/mL Normal 0.00-0.04 [facility] Comment on above: Performed By: #### L [id number] #### [facility] ([facility]) [address] [place] [address] No Panel InformationOrdered By: Fay Adhikari on 11-27-2024 [facility] Radiology Study observation (narrative) [facility] XR knee RT 4V*on 10-17-2024 XR knee RT 4V* [facility] [place] [address] XRay Report Signed Patient: Nazario Cortes Jr MR#: [id number] : 1955 Acct:[id number] Age/Sex: 69 / M ADM Date: 10/17/24 Loc: XDUCLY Room: Type: [facility] Attending Dr: Yancy Lawson APRN Copies [...] Hoa Lockwood M.D.10/17/2024 2:40 PM Dictation Location: RADIO-PC-23 Transcribed By: [facility] 10/17/24 1440 Dictated By: Hoa Lockwood MD 10/17/24 1438 Signed By: 10/17/24 1440 Normal [facility] Physician [facility] XR knee RT 4V*on 09-07-2024 XR knee RT 4V* [facility] [place] [address] [place] [address] XRay Report Signed Patient: Nazario Cortes Jr MR#: [id number] : 1955 Acct:[id number] Age/Sex: 69 / M ADM Date: 09/07/24 Loc: XDUCLY Room: Type: [facility] Attending Dr: Joslyn Garcia APRN Copies [...] Ching Jr., D.OKellie09/07/2024 4:15 PM Dictation Location: RADIO-PC-15 Transcribed By: [facility] 09/07/24 1615 Dictated By: Bar Ching Jr, DO 09/07/24 161 Signed By: 09/07/24 161 Normal [facility] Physician [facility] Influenza virus A and B and SARS-CoV-2 (COVID-19) RNA panel - Respiratory system specon 08-16-2024 Influenza virus A and B RNA and SARS-CoV-2 (COVID-19) N gene panel ALEX+probe (Resp) Negative [facility] - Microbiology an d Antimicrobial susceptibilityon 08-16-2024 SARS-CoV-2 (COVID-19) RNA ALEX+probe Ql (Unsp spec) Negative [facility] No Panel Informationon 08-16 POC Influenza B (ALEX) Negative [facility] Follow-Upon 08-08-2024 Follow-Up [id number] Nazario Cortes 1955 M Date Provider Department Center 08/08/2024 [facility] [place] Family History Problem Relation Age of Onset Supraventricular tachycardia Mother Stroke Father Kidney cancer Sister Diabetes Sister COPD Brother Family Status - Relation Status Age at Mother Father Sister Brother Level of Service:43673 [place] OFFICE/OUTPATIENT ESTABLISHED MOD MDM 30 MIN Reason for Visit and Comments: Follow-up [038153] - Pt is here for a follow up visit for Lumbar Stenosis. Normal [facility] 36on 07-30-2024 36 Talked to patient. [...] ongoing issues. Verbalizes understanding. Normal [facility] Telephoneon 07-30-2024 Telephone [id number] Nazario Cortes 1955 M Date Provider Department Center 07/30/2024 [facility] [place] Family History Problem Relation Age of Onset Supraventricular tachycardia Mother Stroke Father Kidney cancer Sister Diabetes Sister COPD Brother Family Status - Relation Status Age at Mother Father Sister Brother [facility] MR CERVICAL SPINE W AND [...] Not Vldtd Invalid Interpretation Code [facility] XR elbow LT min 3V*on 2023 XR elbow LT min 3V* [facility] [place] [address] [place] [address] XRay Report Signed Patient: Nazario Cortes Jr MR#: [id number] : 1955 Acct:[id number] Age/Sex: 69 / M ADM Date: 05/15/24 Loc: XDUCLY Room: Type: [facility] Attending Dr: Joslyn Garcia APRN Copies to: Joslyn Garcia APRN Ordering Provider: Joslyn M Radha, [employer] Date of Service: 05/15/24 XR/XR elbow LT [...] Zain Fitzpatrick M.D.05/15/2024 4:23 PM Dictation Location: [facility]-PC-12 Transcribed By: [facility] 05/15/24 162 Dictated By: Zain Fitzpatrick DO 05/15/24 1621 Signed By: 05/15/24 1623 Normal [facility] Orders Onlyon 04-11-2024 Orders Only [id number] Nazario Cortes 1955 M Date Provider Department Center 04/11/2024 [id number], [facility] Family History Problem Relation Age of Onset Supraventricular tachycardia Mother Stroke Father Kidney cancer Sister Diabetes Sister COPD Brother Family Status - Relation Status Age at Mother Father Sister Brother Normal [facility] US CAROTID ART BILon 023 US [...] by: KELL BLANDON Date: 2023-01-11 08:42 Normal [facility] ECHOCARDIO M/2D COMPLETEon 0 01-07-2023 ECHOCARDIO M/2D COMPLETE Patient: NAZARIO CORTES Exam Date: 01/07/2023 : 1955 Gender:M Ordering : DR JIGNESH GONSALEZ . Admission #: [id number] Family : Order #: [id number] CLICK HERE TO VIEW EXAM ECHOCARDIOGRAM REPORT [...] M.D. on 01/11/2023 at 18:23 Normal [facility] XR ELBOW LT MIN 3 VIEWSon [...] VIDAL FRASER Date: 2022-12-24 20:23 Normal [facility] XR HIP LT 2 3V W [...] VIDAL FRASER Date: 2022-12-24 20:21 Normal [facility] XR HUMERUS LT MIN 2Von 12-24 [...] KELL DELANEY Date: 2022-12-24 21:03 Normal [facility] CBC AUTO DIFFon 11-04-2022 BASO # 0.1 103/ul Normal 0.0-0.1 [facility] Comment on above: Performed By: #### B MP, CMREP, LIPID #### [facility] [address] [place] [address] Dr. Jeimy Tenorio Basophils/100 WBC (Bld) 0.9 % Normal 0.2-2.0 [facility] Comment on above: Performed By: #### B MP, CMREP, LIPID #### [facility] [address] [place] [address] Dr. Jeimy Tenorio EO # 0.3 103/ul Normal 0.0-0.7 [facility] Comment on above: Performed By: #### B MP, CMREP, LIPID #### [facility] [address] [place] [address] Dr. Jiemy Tenorio Eosinophils/100 WBC (Bld) 5.2 % Normal 0.9-7.0 [facility] Comment on above: Performed By: #### B MP, CMREP, LIPID #### [facility] [address] [place] [address] Dr. Jeimy Tenorio Erythrocyte distribution width (RBC) [Ratio] 12.9 % Normal 11.0-15.0 [facility] Comment on above: Performed By: #### B MP, CMREP, LIPID #### [facility] [address] [place] [address] Dr. Jeimy Tenorio Hematocrit (Bld) [Volume fraction] 39.5 % Critically low 42.0-54.0 [facility] Comment on above: Performed By: #### B MP, CMREP, LIPID #### [facility] [address] [place] [address] Dr. Jeimy Tenorio Hemoglobin (Bld) [Mass/Vol] 13.1 g/dL Critically low 14.0-18.0 [facility] Comment on above: Performed By: #### B MP, CMREP, LIPID #### [facility] [address] [place] [address] Dr. Jeimy Tenorio IG # 0.03 10e3/ul Normal 0.00-0.03 [facility] Comment on above: Performed By: #### B MP, CMREP, LIPID #### [facility] [address] [address] [address] Jeimy Tenorio IG % 0.5 % Normal 0.0-0.5 [facility] Comment on above: Performed By: #### B MP, CMREP, LIPID #### [facility] [address] [address] [address] Jeimy Tenorio LYMPH # 1.5 103/ul Normal 1.2-3.8 [facility] Comment on above: Performed By: #### B MP, CMREP, LIPID #### [facility] [address] [address] [address] Jeimy Tenorio Lymphocytes/100 WBC (Bld) 22.6 % Normal 20.5-60.0 [facility] Comment on above: Performed By: #### B MP, CMREP, LIPID #### [facility] [address] [place] [address] Dr. Jeimy Tenorio MANUAL DIFF REQ NO Normal [facility] Comment on above: Performed By: #### B MP, CMREP, LIPID #### [facility] [address] [place] [address] Dr. Jeimy Tenorio MCH (RBC) [Entitic mass] 32.8 pg Normal 25.9-34.0 [facility] Comment on above: Performed By: #### B MP, CMREP, LIPID #### [facility] [address] [address] [address] Jeimy Tenorio MCHC (RBC) [Mass/Vol] 33.2 g/dL Normal 29.9-35.2 [facility] Comment on above: Performed By: #### B MP, CMREP, LIPID #### [facility] [facility] [address] [address] [address] Jeimy Tenorio MCV (RBC) [Entitic vol] 99.0 fL Critically high 80.0-94.0 [facility] Comment on above: Performed By: #### B MP, CMREP, LIPID #### [facility] [address] [place] [address] Dr. Jeimy Tenorio MONO # 0.7 103/ul Normal 0.3-0.8 [facility] Comment on above: Performed By: #### B MP, CMREP, LIPID #### [facility] [address] [place] [address] Dr. Jeimy Tenorio Monocytes/100 WBC (Bld) 10.6 % Normal 1.7-12.0 [facility] Comment on above: Performed By: #### B MP, CMREP, LIPID #### [facility] [address] [place] [address] Dr. Jeimy Tenorio NEUT # 4.0 103/ul Normal 1.4-6.5 [facility] Comment on above: Performed By: #### B MP, CMREP, LIPID #### [facility] [address] [place] [address] Dr. Jeimy Tenorio Neutrophils/100 WBC (Bld) 60.2 % Normal 43.0-75.0 [facility] Comment on above: Performed By: #### B MP, CMREP, LIPID #### [facility] [address] [place] [address] Dr. Jeimy Tenorio Platelet mean volume (Bld) [Entitic vol] 9.7 fL Normal 9.5-13.5 [facility] Comment on above: Performed By: #### B MP, CMREP, LIPID #### [facility] [address] [place] [address] Dr. Jeimy Tenorio PLT 176 103/ul Normal 150-450 [facility] Comment on above: Performed By: #### B MP, CMREP, LIPID #### [facility] [address] [place] [address] Dr. Jeimy Tenorio RBC 3.99 106/ul Critically low 4.70-6.10 [facility] Comment on above: Performed By: #### B MP, CMREP, LIPID #### [facility] [address] [place] [address] Dr. Jeimy Tenorio WBC 6.6 103/ul Normal 4.0-11.0 [facility] Comment on above: Performed By: #### B MP, CMREP, LIPID #### [facility] [id number] Jeimy Tenorio CT HEAD WO CONon [...] ALEJANDRO PINEDA Date: 2022-11-04 14:08 Normal [facility]21 SARS-CoV-2 (COVID-19) RNA ALEX+probe Ql (Unsp spec) Not detected Normal NOT DETECTED [facility] Comment on above: Result Comment: This test is not yet approved or cleared by the [place] FDA. When there are no FDA-approved or cleared tests available, and other criteria are met, FDA can make tests available under an emergency access mechanism called an Emergency Use Authorization (EUA). The EUA for this test is supported by the Hide Buyer of Health and Human Service's (HHS's) declaration [...] By: #### B MP, CMREP, LIPID #### [facility] [address] [place] [address] Dr. Jeimy Tenorio INFLUENZA A AND B AGon 11-04 INFLUANEGH SEE BELOW Normal [facility] Comment on above: Result Comment: Nega tive for Flu A protein angiten. Infection due to Flu A cannot be ruled out. Flu A angiten in the sample may be below the detection limit of the test. Performed By: #### I NFLUAB #### [facility] [address] [place] [address] Dr. Jeimy Tenorio INFLUBNEG SEE BELOW Normal [facility] Comment on above: Result Comment: Nega tive for Flu B protein antigen. Infection due to Flu B cannot be ruled out. Flu B antigen in the sample may be below the detection limit of the test. Performed By: #### I NFLUAB #### [facility] [address] [place] [address] Dr. Jeimy Tenorio INFLUENZA A AG Negative Normal NEGATIVE SEE COMMENT [facility] Comment on above: Performed By: #### I NFLUAB #### [facility] [address] [place] [address] Dr. Jeimy Tenorio INFLUENZA B AG Negative Normal NEGATIVE SEE COMMENT [facility] Comment on above: Performed By: #### I NFLUAB #### [facility] [address] [place] [address] Dr. Jeimy Tenorio INTERNAL CONTROLS Within Normal Limits Normal Wi thin Normal Limits [facility] Comment on above: Performed By: #### I NFLUAB #### [facility] [address] [place] [address] Dr. Jeimy Tenorio PROF CHEM 8 (BAS METB)on Anion gap [Moles/Vol] 9.7 mmol/L Normal [facility] Comment on above: Performed By: #### C BC #### [facility] [address] [address] [address] Jeimy Tenorio Calcium [Mass/Vol] 8.0 mg/dL Critically low 8.5-10.1 [facility] Comment on above: Performed By: #### C BC #### [facility] [address] [address] [address] Jeimy Tenorio Chloride [Moles/Vol] 104 mmol/L Normal 98-107 [facility] Comment on above: Performed By: #### C BC #### [facility] [address] [address] [address] Jeimy Tenorio CO2 [Moles/Vol] 31.1 mmol/L Normal 21.0-32.0 [facility] Comment on above: Performed By: #### C BC #### [facility] [address] [place] [address] Dr. Jeimy Tenorio Creatinine [Mass/Vol] 0.75 mg/dL Normal 0.70-1.30 [facility] Comment on above: Performed By: #### C BC #### [facility] [address] [address] [address] Jeimy Tenorio EGFR-AF TANZANIAN >60 Normal >=60 [facility] Comment on above: Performed By: #### C BC #### [facility] [address] [place] [address] Dr. Jeimy Tenorio EGFR-NON AF TANZANIAN >60 Normal >=60 [facility] Comment on above: Performed By: #### C BC #### [facility] [address] [place] [address] Dr. Jeimy Tenorio Glucose [Mass/Vol] 76 mg/dL Normal 74-106 [facility] Comment on above: Performed By: #### C BC #### [facility] [address] [address] [address] Jeimy Tenorio Potassium [Moles/Vol] 3.8 mmol/L Normal 3.5-5.1 [facility] Comment on above: Performed By: #### C BC #### [facility] [address] [address] [address] Jeimy Tenorio Sodium [Moles/Vol] 141 mmol/L Normal 136-145 [facility] Comment on above: Performed By: #### C BC #### [facility] [address] [place] [address] Dr. Jeimy Tenorio Urea nitrogen [Mass/Vol] 12.0 mg/dL Normal 7.0-18.0 [facility] Comment on above: Performed By: #### C BC #### [facility] [address] [place] [address] Dr. Jeimy Tenorio Urea nitrogen/Creatinine [Mass ratio] 16.0 mg/mg Normal [facility] Comment on above: Performed By: #### C BC #### [facility] [address] [place] [address] Dr. Jeimy Tenorio TROPONIN, HIGH SENSITIVITYon 11-04-2022 HSTROP 5.8 pg/mL Normal 4.0-76.1 [facility] Comment on above: Result Comment: CUT- OFF POINTS HAVE BEEN ESTABLISHED BASED ON THE FOURTH UNIVERSAL DEFINITIONS OF MYOCARDIAL INFARCTION. THE UPPER REFERENCE LIMIT (URL) OF TROPONIN, DEFINED THE 99TH PERCENTILE OF cTnI DISTRIBUTION IN A REFERENCE POPULATION, HAS BEEN CONFIRMED THE DECISION THRESHOLD FOR AL DIAGNOSIS. Performed By: #### C BC #### [facility] [address] [place] [address] Dr. Jeimy Tenorio CBC AUTO DIFFon 09-29-2022 BASO # 0.1 103/ul Normal 0.0-0.1 [facility] Comment on above: Performed By: #### B MP, CMREP, LIPID #### [facility] [address] [place] [address] Dr. Jeimy Tenorio Basophils/100 WBC (Bld) 1.2 % Normal 0.2-2.0 [facility] Comment on above: Performed By: #### B MP, CMREP, LIPID #### [facility] [address] [place] [address] Dr. Jeimy Tenorio EO # 0.3 103/ul Normal 0.0-0.7 [facility] Comment on above: Performed By: #### B MP, CMREP, LIPID #### [facility] [address] [place] [address] Dr. Jeimy Tenorio Eosinophils/100 WBC (Bld) 4.9 % Normal 0.9-7.0 [facility] Comment on above: Performed By: #### B MP, CMREP, LIPID #### [facility] [address] [place] [address] Dr. Jeimy Tenorio Erythrocyte distribution width (RBC) [Ratio] 13.2 % Normal 11.0-15.0 [facility] Comment on above: Performed By: #### B MP, CMREP, LIPID #### [facility] [address] [place] [address] Dr. Jeimy Tenorio Hematocrit (Bld) [Volume fraction] 42.3 % Normal 42.0-54.0 [facility] Comment on above: Performed By: #### B MP, CMREP, LIPID #### [facility] [address] [place] [address] Dr. Jeimy Tenorio Hemoglobin (Bld) [Mass/Vol] 13.8 g/dL Critically low 14.0-18.0 [facility] Comment on above: Performed By: #### B MP, CMREP, LIPID #### [facility] [address] [place] [address] Dr. Jeimy Tenorio IG # 0.02 10e3/ul Normal 0.00-0.03 [facility] Comment on above: Performed By: #### B MP, CMREP, LIPID #### [facility] [address] [place] [address] Dr. Jeimy Tenorio IG % 0.3 % Normal 0.0-0.5 [facility] Comment on above: Performed By: #### B MP, CMREP, LIPID #### [facility] [address] [place] [address] Dr. Jeimy Tenorio LYMPH # 1.3 103/ul Normal 1.2-3.8 [facility] Comment on above: Performed By: #### B MP, CMREP, LIPID #### [facility] [address] [place] [address] Dr. Jeimy Tenorio Lymphocytes/100 WBC (Bld) 19.5 % Critically low 20.5-60.0 [facility] Comment on above: Performed By: #### B MP, CMREP, LIPID #### [facility] [address] [place] [address] Dr. Jeimy Tenorio MANUAL DIFF REQ NO Normal [facility] Comment on above: Performed By: #### B MP, CMREP, LIPID #### [facility] [address] [place] [address] Dr. Jeimy Tenorio MCH (RBC) [Entitic mass] 32.9 pg Normal 25.9-34.0 [facility] Comment on above: Performed By: #### B MP, CMREP, LIPID #### [facility] [address] [place] [address] Dr. Jeimy Tenorio MCHC (RBC) [Mass/Vol] 32.6 g/dL Normal 29.9-35.2 [facility] Comment on above: Performed By: #### B MP, CMREP, LIPID #### [facility] [address] [place] [address] Dr. Jeimy Tenorio MCV (RBC) [Entitic vol] 100.7 fL Critically high 80.0-94.0 [facility] Comment on above: Performed By: #### B MP, CMREP, LIPID #### [facility] [address] [place] [address] Dr. Jeimy Tenorio MONO # 0.7 103/ul Normal 0.3-0.8 [facility] Comment on above: Performed By: #### B MP, CMREP, LIPID #### [facility] [address] [place] [address] Dr. Jeimy Tenorio Monocytes/100 WBC (Bld) 9.9 % Normal 1.7-12.0 [facility] Comment on above: Performed By: #### B MP, CMREP, LIPID #### [facility] [address] [place] [address] Dr. Jeimy Tenorio NEUT # 4.3 103/ul Normal 1.4-6.5 [facility] Comment on above: Performed By: #### B MP, CMREP, LIPID #### [facility] [address] [place] [address] Dr. Jeimy Tenorio Neutrophils/100 WBC (Bld) 64.2 % Normal 43.0-75.0 [facility] Comment on above: Performed By: #### B MP, CMREP, LIPID #### [facility] [address] [address] [address] Jeimy Tenorio Platelet mean volume (Bld) [Entitic vol] 10.4 fL Normal 9.5-13.5 [facility] Comment on above: Performed By: #### B MP, CMREP, LIPID #### [facility] [address] [address] [address] Jeimy Tenorio PLT 209 103/ul Normal 150-450 [facility] Comment on above: Performed By: #### B MP, CMREP, LIPID #### [facility] [address] [place] [address] Dr. Jeimy Tenorio RBC 4.20 106/ul Critically low 4.70-6.10 [facility] Comment on above: Performed By: #### B MP, CMREP, LIPID #### [facility] [address] [place] [address] Dr. Jeimy Tenorio WBC 6.7 103/ul Normal 4.0-11.0 [facility] Comment on above: Performed By: #### B MP, CMREP, LIPID #### [facility] [address] [place] [address] Dr. Jeimy Tenorio DILANTINon 09-29-2022 Phenytoin [Mass/Vol] 23.7 ug/mL Critically high 10.0-20.0 [facility] Comment on above: Performed By: #### C BC #### [facility] [address] [place] [address] Dr. Jeimy Tenorio GLYCOHEMOGLOBIN A1Con 2021 ADA RECOMMENDATION SEE BELOW Normal [facility] Comment on above: Result Comment: ADA RECOMMENDED LIMIT 4.0 - 6.0 ADA THERAPEUTIC TARGET < 7.0 ACTION SUGGESTED > 7.0 Performed By: #### A 1C #### [facility] [address] [place] [address] Dr. Jeimy Tenorio Glucose [Mass/Vol] 105 mg/dL Normal [facility] Comment on above: Performed By: #### A 1C #### [facility] [address] [address] [address] Jeimy Tenorio HbA1c (Bld) [Mass fraction] 5.3 % Normal 4.5-6.2 [facility] Comment on above: Performed By: #### A 1C #### [facility] [address] [address] [address] Jeimy Tenorio LIPID PROFILEon 09-29-2022 CHOL-HDL RATIO NORM SEE BELOW Normal [facility] Comment on above: Result Comment: 3.3 - 4.4 LOW RISK 4.4 - 7.1 AVERAGE RISK 7.1 - 11.0 MODERATE RISK >11.0 HIGH RISK Performed By: #### B MP, CMREP, LIPID #### [facility] [address] [address] [address] Jeimy Tenorio Cholesterol [Mass/Vol] 178 mg/dL Normal <=200 [facility] Comment on above: Performed By: #### B MP, CMREP, LIPID #### [facility] [address] [address] [address] Jeimy Tenorio Cholesterol in HDL [Mass/Vol] 56 mg/dL Normal 40-60 [facility] Comment on above: Performed By: #### B MP, CMREP, LIPID #### [facility] [address] [address] [address] Jeimy Tenorio Cholesterol in LDL [Mass/Vol] 86.8 mg/dL Normal [facility] Comment on above: Performed By: #### B MP, CMREP, LIPID #### [facility] [address] [address] [address] Jeimy Tenorio Cholesterol.total/Cho lesterol in HDL [Mass ratio] 3.2 {ratio} Normal [facility] Comment on above: Performed By: #### B MP, CMREP, LIPID #### [facility] [address] [address] [address] Jeimy Tenorio HDL NORMAL > or = 60 mg/dl - LO W CARDIOVASCULAR RISK <40 mg/dl - HIGH CARDIOVASCULAR RISK Normal [facility] Comment on above: Performed By: #### B MP, CMREP, LIPID #### [facility] [address] [address] [address] Jeimy Tenorio LDL CALC NORMAL SEE BELOW Normal [facility] Comment on above: Result Comment: <100 mg/dl OPTIMAL 100 - 129 mg/dl NEAR OR ABOVE OPTIMAL 130 - 159 mg/dl BORDERLINE HIGH 160 - 189 mg/dl HIGH >190 mg/dl VERY HIGH Performed By: #### B MP, CMREP, LIPID #### [facility] [address] [address] [address] Jeimy Tenorio Triglyceride [Mass/Vol] 176 mg/dL Critically high <=150 [facility] Comment on above: Performed By: #### B MP, CMREP, LIPID #### [facility] [address] [address] [address] Jeimy Tenorio VLDL CALC 35.2 mg/dL Normal [facility] Comment on above: Performed By: #### B MP, CMREP, LIPID #### [facility] [address] [address] [address] Jeimy Tenorio LIVER PROFILEon 09-29-2022 Albumin [Mass/Vol] 3.5 g/dL Normal 3.4-5.0 [facility] Comment on above: Performed By: #### B MP, CMREP, LIPID #### [facility] [address] [address] [address] Jeimy Tenorio Albumin/Globulin [Mass ratio] 0.8 {ratio} Normal [facility] Comment on above: Performed By: #### B MP, CMREP, LIPID #### [facility] [address] [address] [address] Jeimy Tenorio ALP [Catalytic activity/Vol] 139 U/L Critically high 46-116 [facility] Comment on above: Performed By: #### B MP, CMREP, LIPID #### [facility] [address] [address] [address] Jeimy Tenorio ALT [Catalytic activity/Vol] 25 U/L Normal 16-63 [facility] Comment on above: Performed By: #### B MP, CMREP, LIPID #### [facility] [address] [place] [address] Dr. Jeimy Tenorio AST [Catalytic activity/Vol] 23 U/L Normal 15-37 [facility] Comment on above: Performed By: #### B MP, CMREP, LIPID #### [facility] [address] [place] [address] Dr. Jeimy Tenorio BILI, CONJUGATED 0.0 mg/dL Normal 0.0-0.2 [facility] Comment on above: Performed By: #### B MP, CMREP, LIPID #### [facility] [address] [place] [address] Dr. Jeimy Tenorio Bilirubin [Mass/Vol] 0.3 mg/dL Normal 0.2-1.0 [facility] Comment on above: Performed By: #### B MP, CMREP, LIPID #### [facility] [address] [place] [address] Dr. Jeimy Tenorio Globulin (S) [Mass/Vol] 4.3 g/dL Normal [facility] Comment on above: Performed By: #### B MP, CMREP, LIPID #### [facility] [address] [place] [address] Dr. Jeimy Tenorio Protein [Mass/Vol] 7.8 g/dL Normal 6.4-8.2 [facility] Comment on above: Performed By: #### B MP, CMREP, LIPID #### [facility] [address] [place] [address] Dr. Jeimy Tenorio PROF CHEM 8 (BAS METB)on Anion gap [Moles/Vol] 8.7 mmol/L Normal [facility] Comment on above: Performed By: #### B MP, CMREP, LIPID #### [facility] [address] [place] [address] Dr. Jeimy Tenorio Calcium [Mass/Vol] 8.7 mg/dL Normal 8.5-10.1 [facility] Comment on above: Performed By: #### B MP, CMREP, LIPID #### [facility] [address] [address] [address] Jeimy Tenorio Chloride [Moles/Vol] 104 mmol/L Normal 98-107 [facility] Comment on above: Performed By: #### B MP, CMREP, LIPID #### [facility] [address] [address] [address] Jeimy Tenorio CO2 [Moles/Vol] 29.8 mmol/L Normal 21.0-32.0 [facility] Comment on above: Performed By: #### B MP, CMREP, LIPID #### [facility] [address] [address] [address] Jeimy Tenorio Creatinine [Mass/Vol] 0.76 mg/dL Normal 0.70-1.30 [facility] Comment on above: Performed By: #### B MP, CMREP, LIPID #### [facility] [address] [place] [address] Dr. Jeimy Tenorio EGFR-AF TANZANIAN >60 Normal >=60 [facility] Comment on above: Performed By: #### B MP, CMREP, LIPID #### [facility] [address] [place] [address] Dr. Jeimy Tenorio EGFR-NON AF TANZANIAN >60 Normal >=60 [facility] Comment on above: Performed By: #### B MP, CMREP, LIPID #### [facility] [address] [place] [address] Dr. Jeimy Tenorio Glucose [Mass/Vol] 95 mg/dL Normal 74-106 [facility] Comment on above: Performed By: #### B MP, CMREP, LIPID #### [facility] [address] [address] [address] Jeimy Tenorio Potassium [Moles/Vol] 4.5 mmol/L Normal 3.5-5.1 [facility] Comment on above: Performed By: #### B MP, CMREP, LIPID #### [facility] [address] [address] [address] Jeimy Tenorio Sodium [Moles/Vol] 138 mmol/L Normal 136-145 [facility] Comment on above: Performed By: #### B MP, CMREP, LIPID #### [facility] [address] [place] [address] Dr. Jeimy Tenorio Urea nitrogen [Mass/Vol] 18.0 mg/dL Normal 7.0-18.0 [facility] Comment on above: Performed By: #### B MP, CMREP, LIPID #### [facility] [address] [place] [address] Dr. Jeimy Tenorio Urea nitrogen/Creatinine [Mass ratio] 23.7 mg/mg Normal [facility] Comment on above: Performed By: #### B MP, CMREP, LIPID #### [facility] [address] [place] [address] Dr. Jeimy Tenorio TSHon 09-29-2022 TSH 1.694 uIU/mL Normal 0.358-3.740 [facility] Comment on above: Performed By: #### B MP, CMREP, LIPID #### [facility] [address] [place] [address] Dr. Jeimy Tenorio CARDIAC SAWYER 3-6on 2 CK [Catalytic activity/Vol] 47 U/L Normal 39-308 [facility] Comment on above: Performed By: #### B MP, CMREP, LIPID #### [facility] [address] [place] [address] Dr. Jeimy Tenorio CK.MB [Mass/Vol] 0.77 ng/mL Normal <=3.60 [facility] Comment on above: Performed By: #### B MP, CMREP, LIPID #### [facility] [address] [place] [address] Dr. Jeimy Tenorio HSTROP 6.9 pg/mL Normal 4.0-76.1 [facility] Comment on above: Result Comment: CUT- OFF POINTS HAVE BEEN ESTABLISHED BASED ON THE FOURTH UNIVERSAL DEFINITIONS OF MYOCARDIAL INFARCTION. THE UPPER REFERENCE LIMIT (URL) OF TROPONIN, DEFINED THE 99TH PERCENTILE OF cTnI DISTRIBUTION IN A REFERENCE POPULATION, HAS BEEN CONFIRMED THE DECISION THRESHOLD FOR AL DIAGNOSIS. Performed By: #### B MP, CMREP, LIPID #### [facility] [address] [place] [address] Dr. Jeimy Tenorio CK [Catalytic activity/Vol] 53 U/L Normal 39-308 [facility] Comment on above: Performed By: #### C BC #### [facility] [address] [place] [address] Dr. Jeimy Tenorio CK.MB [Mass/Vol] 0.80 ng/mL Normal <=3.60 [facility] Comment on above: Performed By: #### C BC #### [facility] [address] [place] [address] Dr. Jeimy Tenorio HSTROP 6.2 pg/mL Normal 4.0-76.1 [facility] Comment on above: Result Comment: CUT- OFF POINTS HAVE BEEN ESTABLISHED BASED ON THE FOURTH UNIVERSAL DEFINITIONS OF MYOCARDIAL INFARCTION. THE UPPER REFERENCE LIMIT (URL) OF TROPONIN, DEFINED THE 99TH PERCENTILE OF cTnI DISTRIBUTION IN A REFERENCE POPULATION, HAS BEEN CONFIRMED THE DECISION THRESHOLD FOR AL DIAGNOSIS. Performed By: #### C BC #### [facility] [address] [place] [address] Dr. Jeimy Tenorio CBC AUTO DIFFon 06-12-2022 BASO # 0.1 103/ul Normal 0.0-0.1 [facility] Comment on above: Performed By: #### C BC #### [facility] [address] [place] [address] Dr. Jeimy Tenorio Basophils/100 WBC (Bld) 0.9 % Normal 0.2-2.0 [facility] Comment on above: Performed By: #### C BC #### [facility] [address] [place] [address] Dr. Jeimy Tenorio EO # 0.3 103/ul Normal 0.0-0.7 [facility] Comment on above: Performed By: #### C BC #### [facility] [address] [place] [address] Dr. Jeimy Tenorio Eosinophils/100 WBC (Bld) 5.2 % Normal 0.9-7.0 [facility] Comment on above: Performed By: #### C BC #### [facility] [address] [place] [address] Dr. Jeimy Tenorio Erythrocyte distribution width (RBC) [Ratio] 13.0 % Normal 11.0-15.0 [facility] Comment on above: Performed By: #### C BC #### [facility] [address] [place] [address] Dr. Jeimy Tenorio Hematocrit (Bld) [Volume fraction] 39.1 % Critically low 42.0-54.0 [facility] Comment on above: Performed By: #### C BC #### [facility] [address] [place] [address] Dr. Jeimy Tenorio Hemoglobin (Bld) [Mass/Vol] 13.2 g/dL Critically low 14.0-18.0 [facility] Comment on above: Performed By: #### C BC #### [facility] [address] [place] [address] Dr. Jeimy Tenorio IG # 0.03 10e3/ul Normal 0.00-0.03 [facility] Comment on above: Performed By: #### C BC #### [facility] [address] [place] [address] Dr. Jeimy Tenorio IG % 0.5 % Normal 0.0-0.5 [facility] Comment on above: Performed By: #### C BC #### [facility] [address] [place] [address] Dr. Jeimy Tenorio LYMPH # 1.7 103/ul Normal 1.2-3.8 [facility] Comment on above: Performed By: #### C BC #### [facility] [address] [place] [address] Dr. Jeimy Tenorio Lymphocytes/100 WBC (Bld) 26.0 % Normal 20.5-60.0 [facility] Comment on above: Performed By: #### C BC #### [facility] [address] [place] [address] Dr. Jeimy Tenorio MANUAL DIFF REQ NO Normal [facility] Comment on above: Performed By: #### C BC #### [facility] [address] [place] [address] Dr. Jeimy Tenorio MCH (RBC) [Entitic mass] 33.2 pg Normal 25.9-34.0 [facility] Comment on above: Performed By: #### C BC #### [facility] [address] [address] [address] Jeimy Tenorio MCHC (RBC) [Mass/Vol] 33.8 g/dL Normal 29.9-35.2 [facility] Comment on above: Performed By: #### C BC #### [facility] [address] [address] [address] Jeimy Tenorio MCV (RBC) [Entitic vol] 98.5 fL Critically high 80.0-94.0 [facility] Comment on above: Performed By: #### C BC #### [facility] [address] [address] [address] Jeimy Tenorio MONO # 0.8 103/ul Normal 0.3-0.8 [facility] Comment on above: Performed By: #### C BC #### [facility] [address] [place] [address] Dr. Jeimy Tenorio Monocytes/100 WBC (Bld) 12.2 % Critically high 1.7-12.0 [facility] Comment on above: Performed By: #### C BC #### [facility] [address] [place] [address] Dr. Jeimy Tenorio NEUT # 3.6 103/ul Normal 1.4-6.5 [facility] Comment on above: Performed By: #### C BC #### [facility] [address] [place] [address] Dr. Jeimy Tenorio Neutrophils/100 WBC (Bld) 55.2 % Normal 43.0-75.0 [facility] Comment on above: Performed By: #### C BC #### [facility] [address] [address] [address] Jeimy Tenorio Platelet mean volume (Bld) [Entitic vol] 9.9 fL Normal 9.5-13.5 [facility] Comment on above: Performed By: #### C BC #### [facility] [address] [place] [address] Dr. Jeimy Tenorio PLT 174 103/ul Normal 150-450 [facility] Comment on above: Performed By: #### C BC #### [facility] [address] [place], [place] [address] Dr. Jeimy Tenorio RBC 3.97 106/ul Critically low 4.70-6.10 [facility] Comment on above: Performed By: #### C BC #### [facility] [address] [place], [place] [address] Dr. Jeimy Tenorio WBC 6.5 103/ul Normal 4.0-11.0 [facility] Comment on above: Performed By: #### C BC #### [facility] [address] [place], [place] [address] Dr. Jeimy Tenorio CTA CHEST WO W [...] Follow-up as clinically indicated. Electronically authenticated by: BINOR SAID Date: 2022-06-12 00:21 Normal [facility] Covid-19 PCR (CVDTB)on 05-22 SARS-CoV-2 (COVID-19) RNA ALEX+probe Ql (Unsp spec) Not detected Normal NOT DETECTED [facility] Comment on above: Result Comment: When [...] for this test is supported by the [employer] and Human [employer]'s declaration that [...] By: #### B MP, CMREP, LIPID #### [facility] [address] [place] [address] Dr. Jeimy Tenorio ER URINE PROFILEon 2 Bilirubin Ql (U) Negative Normal NEGATIVE [facility] Comment on above: Performed By: #### E RUR #### [facility] [address] [place] [address] Dr. Jeimy Tenorio Clarity (U) CLEAR Normal CLEAR [facility] Comment on above: Performed By: #### E RUR #### [facility] [address] [place] [address] Dr. Jeimy Tenorio Color (U) LT. YELLOW Normal YELLOW [facility] Comment on above: Performed By: #### E RUR #### [facility] [address] [place] [address] Dr. Jeimy Tenorio ERUAHD A micrscopic examination will be performed if indicated. Normal [facility] Comment on above: Performed By: #### E RUR #### [facility] [address] [place] [address] Dr. Jeimy Tenorio Glucose Ql (U) Negative Normal NEGATIVE [facility] Comment on above: Performed By: #### E RUR #### [facility] [address] [place] [address] Dr. Jeimy Tenorio Hemoglobin Ql (U) Negative Normal NEGATIVE [facility] Comment on above: Performed By: #### E RUR #### [facility] [address] [place] [address] Dr. Jeimy Tenorio Ketones Ql (U) TRACE Abnormal NEGATIVE [facility] Comment on above: Performed By: #### E RUR #### [facility] [address] [place] [address] Dr. Jeimy Tenorio LEUKOCYTES Negative Normal NEGATIVE [facility] Comment on above: Performed By: #### E RUR #### [facility] [address] [place] [address] Dr. Jeimy Tenorio Nitrite Ql (U) Negative Normal NEGATIVE [facility] Comment on above: Performed By: #### E RUR #### [facility] [address] [place] [address] Dr. Jeimy Tenorio pH (U) 5.5 [pH] Normal 5-9 [facility] Comment on above: Performed By: #### E RUR #### [facility] [address] [place] [address] Dr. Jeimy Tenorio SPEC GRAVITY 1.010 Normal 1.005-<=1.02 5 [facility] Comment on above: Performed By: #### E RUR #### [facility] [address] [place] [address] Dr. Jeimy Tenorio UA PROTEIN Negative Normal NEGATIVE/ TRACE [facility] Comment on above: Performed By: #### E RUR #### [facility] [address] [place] [address] Dr. Jeimy Tenorio UR MICRO IND NOT INDICATED Normal [facility] Comment on above: Performed By: #### E RUR #### [facility] [address] [place] [address] Dr. Jeimy Tenorio Urobilinogen Qn (U) 0.2 {Raphael'U}/dL Normal 0.2 - 1. 0 [facility] Comment on above: Performed By: #### E RUR #### [facility] [address] [address] [address] Jeimy Tenorio GLYCOHEMOGLOBIN A1Con 2021 ADA RECOMMENDATION SEE BELOW Normal [facility] Comment on above: Result Comment: ADA RECOMMENDED LIMIT 4.0 - 6.0 ADA THERAPEUTIC TARGET < 7.0 ACTION SUGGESTED > 7.0 Performed By: #### C BC #### [facility] [address] [address] [address] Jeimy Tenorio Glucose [Mass/Vol] 103 mg/dL Normal [facility] Comment on above: Performed By: #### C BC #### [facility] [address] [place] [address] Dr. Jeimy Tenorio HbA1c (Bld) [Mass fraction] 5.2 % Normal 4.5-6.2 [facility] Comment on above: Performed By: #### C BC #### [facility] [address] [place] [address] Dr. Jeimy Tenorio LIPID PROFILEon 06-12-2022 CHOL-HDL RATIO NORM SEE BELOW Normal [facility] Comment on above: Result Comment: 3.3 - 4.4 LOW RISK 4.4 - 7.1 AVERAGE RISK 7.1 - 11.0 MODERATE RISK >11.0 HIGH RISK Performed By: #### B MP, CMREP, LIPID #### [facility] [address] [place] [address] Dr. Jeimy Tenorio Cholesterol [Mass/Vol] 142 mg/dL Normal <=200 [facility] Comment on above: Performed By: #### B MP, CMREP, LIPID #### [facility] [address] [place] [address] Dr. Jeimy Tenorio Cholesterol in HDL [Mass/Vol] 49 mg/dL Normal 40-60 [facility] Comment on above: Performed By: #### B MP, CMREP, LIPID #### [facility] [address] [address] [address] Jeimy Tenorio Cholesterol in LDL [Mass/Vol] 64.6 mg/dL Normal [facility] Comment on above: Performed By: #### B MP, CMREP, LIPID #### [facility] [address] [place] [address] Dr. Jeimy Tenorio Cholesterol.total/Cho lesterol in HDL [Mass ratio] 2.9 {ratio} Normal [facility] Comment on above: Performed By: #### B MP, CMREP, LIPID #### [facility] [address] [place] [address] Dr. Jeimy Tenorio HDL NORMAL > or = 60 mg/dl - LO W CARDIOVASCULAR RISK <40 mg/dl - HIGH CARDIOVASCULAR RISK Normal [facility] Comment on above: Performed By: #### B MP, CMREP, LIPID #### [facility] [address] [place] [address] Dr. Jeimy Tenorio LDL CALC NORMAL SEE BELOW Normal [facility] Comment on above: Result Comment: <100 mg/dl OPTIMAL 100 - 129 mg/dl NEAR OR ABOVE OPTIMAL 130 - 159 mg/dl BORDERLINE HIGH 160 - 189 mg/dl HIGH >190 mg/dl VERY HIGH Performed By: #### B MP, CMREP, LIPID #### [facility] [address] [place] [address] Dr. Jeimy Tenorio Triglyceride [Mass/Vol] 142 mg/dL Normal <=150 [facility] Comment on above: Performed By: #### B MP, CMREP, LIPID #### [facility] [address] [place] [address] Dr. Jeimy Tenorio VLDL CALC 28.4 mg/dL Normal [facility] Comment on above: Performed By: #### B MP, CMREP, LIPID #### [facility] [address] [place] [address] Dr. Jeimy Tenorio PROF CHEM 8 (BAS METB)on Anion gap [Moles/Vol] 10.1 mmol/L Normal [facility] Comment on above: Performed By: #### B MP, CMREP, LIPID #### [facility] [address] [place] [address] Dr. Jeimy Tenorio Calcium [Mass/Vol] 8.0 mg/dL Critically low 8.5-10.1 Th e [facility] Comment on above: Performed By: #### B MP, CMREP, LIPID #### [facility] [address] [address] [address] Jeimy Tenorio Chloride [Moles/Vol] 104 mmol/L Normal 98-107 [facility] Comment on above: Performed By: #### B MP, CMREP, LIPID #### [facility] [address] [place] [address] Dr. Jeimy Tenorio CO2 [Moles/Vol] 27.0 mmol/L Normal 21.0-32.0 [facility] Comment on above: Performed By: #### B MP, CMREP, LIPID #### [facility] [address] [place] [address] Dr. Jeimy Tenorio Creatinine [Mass/Vol] 0.79 mg/dL Normal 0.70-1.30 [facility] Comment on above: Performed By: #### B MP, CMREP, LIPID #### [facility] [address] [place] [address] Dr. Jeimy Tenorio EGFR-AF TANZANIAN >60 Normal >=60 [facility] Comment on above: Performed By: #### B MP, CMREP, LIPID #### [facility] [address] [place] [address] Dr. Jeimy Tenorio EGFR-NON AF TANZANIAN >60 Normal >=60 [facility] Comment on above: Performed By: #### B MP, CMREP, LIPID #### [facility] [address] [place] [address] Dr. Jeimy Tenorio Glucose [Mass/Vol] 101 mg/dL Normal 74-106 [facility] Comment on above: Performed By: #### B MP, CMREP, LIPID #### [facility] [address] [place] [address] Dr. Jeimy Tenorio Potassium [Moles/Vol] 4.1 mmol/L Normal 3.5-5.1 [facility] Comment on above: Performed By: #### B MP, CMREP, LIPID #### [facility] [address] [address] [address] Jeimy Tenorio Sodium [Moles/Vol] 137 mmol/L Normal 136-145 [facility] Comment on above: Performed By: #### B MP, CMREP, LIPID #### [facility] [address] [address] [address] Jeimy Tenorio Urea nitrogen [Mass/Vol] 15.0 mg/dL Normal 7.0-18.0 [facility] Comment on above: Performed By: #### B MP, CMREP, LIPID #### [facility] [address] [address] [address] Jeimy Tenorio Urea nitrogen/Creatinine [Mass ratio] 19.0 mg/mg Normal [facility] Comment on above: Performed By: #### B MP, CMREP, LIPID #### [facility] [address] [place] [address] Dr. Jeimy Tenorio CARDIAC SAWYER ADMITon 022 CK [Catalytic activity/Vol] 50 U/L Normal 39-308 [facility] Comment on above: Performed By: #### C BC #### [facility] [address] [place] [address] Dr. Jeimy Tenorio CK.MB [Mass/Vol] 0.80 ng/mL Normal <=3.60 [facility] Comment on above: Performed By: #### C BC #### [facility] [address] [place] [address] Dr. Jeimy Tenorio HSTROP 5.2 pg/mL Normal 4.0-76.1 [facility] Comment on above: Result Comment: CUT- OFF POINTS HAVE BEEN ESTABLISHED BASED ON THE FOURTH UNIVERSAL DEFINITIONS OF MYOCARDIAL INFARCTION. THE UPPER REFERENCE LIMIT (URL) OF TROPONIN, DEFINED THE 99TH PERCENTILE OF cTnI DISTRIBUTION IN A REFERENCE POPULATION, HAS BEEN CONFIRMED THE DECISION THRESHOLD FOR AL DIAGNOSIS. Performed By: #### C BC #### [facility] [address] [place] [address] Dr. Jeimy Tenorio MAGALIE 41 ng/mL Normal 16-96 [facility] Comment on above: Performed By: #### C BC #### [facility] [address] [place] [address] Dr. Jeimy Tenorio CBC AUTO DIFFon 06-11-2022 BASO # 0.0 103/ul Normal 0.0-0.1 [facility] Comment on above: Performed By: #### C BC #### [facility] [address] [place] [address] Dr. Jeimy Tenorio Basophils/100 WBC (Bld) 0.6 % Normal 0.2-2.0 [facility] Comment on above: Performed By: #### C BC #### [facility] [address] [place] [address] Dr. Jiemy Tenorio EO # 0.4 103/ul Normal 0.0-0.7 [facility] Comment on above: Performed By: #### C BC #### [facility] [address] [place] [address] Dr. Jeimy Tenorio Eosinophils/100 WBC (Bld) 4.9 % Normal 0.9-7.0 [facility] Comment on above: Performed By: #### C BC #### [facility] [address] [place] [address] Dr. Jeimy Tenorio Erythrocyte distribution width (RBC) [Ratio] 13.1 % Normal 11.0-15.0 [facility] Comment on above: Performed By: #### C BC #### [facility] [address] [place] [address] Dr. Jeimy Tenorio Hematocrit (Bld) [Volume fraction] 38.1 % Critically low 42.0-54.0 [facility] Comment on above: Performed By: #### C BC #### [facility] [address] [place] [address] Dr. Jeimy Tenorio Hemoglobin (Bld) [Mass/Vol] 13.0 g/dL Critically low 14.0-18.0 [facility] Comment on above: Performed By: #### C BC #### [facility] [address] [place] [address] Dr. Jeimy Tenorio IG # 0.02 10e3/ul Normal 0.00-0.03 [facility] Comment on above: Performed By: #### C BC #### [facility] [address] [place] [address] Dr. Jeimy Tenorio IG % 0.3 % Normal 0.0-0.5 [facility] Comment on above: Performed By: #### C BC #### [facility] [address] [place] [address] Dr. Jeimy Tenorio LYMPH # 1.7 103/ul Normal 1.2-3.8 [facility] Comment on above: Performed By: #### C BC #### [facility] [address] [place] [address] Dr. Jeimy Tenorio Lymphocytes/100 WBC (Bld) 22.9 % Normal 20.5-60.0 [facility] Comment on above: Performed By: #### C BC #### [facility] [address] [place] [address] Dr. Jeimy Tenorio MANUAL DIFF REQ NO Normal [facility] Comment on above: Performed By: #### C BC #### [facility] [address] [place] [address] Dr. Jeimy Tenorio MCH (RBC) [Entitic mass] 33.5 pg Normal 25.9-34.0 [facility] Comment on above: Performed By: #### C BC #### [facility] [address] [place] [address] Dr. Jeimy Tenorio MCHC (RBC) [Mass/Vol] 34.1 g/dL Normal 29.9-35.2 [facility] Comment on above: Performed By: #### C BC #### [facility] [address] [place] [address] Dr. Jeimy Tenorio MCV (RBC) [Entitic vol] 98.2 fL Critically high 80.0-94.0 [facility] Comment on above: Performed By: #### C BC #### [facility] [address] [place] [address] Dr. Jeimy Tenorio MONO # 0.8 103/ul Normal 0.3-0.8 [facility] Comment on above: Performed By: #### C BC #### [facility] [address] [place] [address] Dr. Jeimy Tenorio Monocytes/100 WBC (Bld) 11.5 % Normal 1.7-12.0 [facility] Comment on above: Performed By: #### C BC #### [facility] [address] [address] [address] Jeimy Tenorio NEUT # 4.3 103/ul Normal 1.4-6.5 [facility] Comment on above: Performed By: #### C BC #### [facility] [address] [place] [address] Dr. Jeimy Tenorio Neutrophils/100 WBC (Bld) 59.8 % Normal 43.0-75.0 [facility] Comment on above: Performed By: #### C BC #### [facility] [address] [place] [address] Dr. Jeimy Tenorio Platelet mean volume (Bld) [Entitic vol] 9.8 fL Normal 9.5-13.5 [facility] Comment on above: Performed By: #### C BC #### [facility] [address] [place] [address] Dr. Jeimy Tenorio PLT 181 103/ul Normal 150-450 [facility] Comment on above: Performed By: #### C BC #### [facility] [address] [place] [address] Dr. Jeimy Tenorio RBC 3.88 106/ul Critically low 4.70-6.10 [facility] Comment on above: Performed By: #### C BC #### [facility] [address] [place] [address] Dr. Jeimy Tenorio WBC 7.2 103/ul Normal 4.0-11.0 [facility] Comment on above: Performed By: #### C BC #### [facility] [address] [place] [address] Dr. Jeimy Tenorio D-DIMERon 06-11-2022 D-DIMER 0.63 mg/L FEU Critically high <=0.59 [facility] Comment on above: Performed By: #### D DIM #### [facility] [address] [place] [address] Dr. Jeimy Tenorio D-DIMER COMMENTS SEE BELOW Normal [facility] Comment on above: Result Comment: [...] hospitalization. Performed By: #### D DIM #### [facility] [address] [place] [address] Dr. Jeimy Tenorio PROF 14(COMP METB)on 022 Albumin [Mass/Vol] 3.3 g/dL Critically low 3.4-5.0 [facility] Comment on above: Performed By: #### C BC #### [facility] [address] [place] [address] Dr. Jeimy Tenorio Albumin/Globulin [Mass ratio] 0.8 {ratio} Normal [facility] Comment on above: Performed By: #### C BC #### [facility] [address] [place] [address] Dr. Jeimy Tenorio ALP [Catalytic activity/Vol] 160 U/L Critically high 46-116 [facility] Comment on above: Performed By: #### C BC #### [facility] [address] [place] [address] Dr. Jeimy Tenorio ALT [Catalytic activity/Vol] 26 U/L Normal 16-63 [facility] Comment on above: Performed By: #### C BC #### [facility] [address] [place] [address] Dr. Jeimy Tenorio Anion gap [Moles/Vol] 10.4 mmol/L Normal [facility] Comment on above: Performed By: #### C BC #### [facility] [address] [place] [address] Dr. Jeimy Tenorio AST [Catalytic activity/Vol] 16 U/L Normal 15-37 [facility] Comment on above: Performed By: #### C BC #### [facility] [address] [address] [address] Jeimy Tenorio Bilirubin [Mass/Vol] 0.2 mg/dL Normal 0.2-1.0 [facility] Comment on above: Performed By: #### C BC #### [facility] [address] [address] [address] Jeimy Tenorio Calcium [Mass/Vol] 8.2 mg/dL Critically low 8.5-10.1 [facility] Comment on above: Performed By: #### C BC #### [facility] [address] [address] [address] Jeimy Tenorio Chloride [Moles/Vol] 105 mmol/L Normal 98-107 [facility] Comment on above: Performed By: #### C BC #### [facility] [address] [place] [address] Dr. Jeimy Tenorio CO2 [Moles/Vol] 26.5 mmol/L Normal 21.0-32.0 [facility] Comment on above: Performed By: #### C BC #### [facility] [address] [address] [address] Jeimy Tenorio Creatinine [Mass/Vol] 0.96 mg/dL Normal 0.70-1.30 [facility] Comment on above: Performed By: #### C BC #### [facility] [address] [address] [address] Jeimy Tenorio EGFR-AF TANZANIAN >60 Normal >=60 [facility] Comment on above: Performed By: #### C BC #### [facility] [address] [address] [address] Jeimy Tenorio EGFR-NON AF TANZANIAN >60 Normal >=60 [facility] Comment on above: Performed By: #### C BC #### [facility] [address] [place] [address] Dr. Jeimy Tenorio Globulin (S) [Mass/Vol] 4.0 g/dL Normal [facility] Comment on above: Performed By: #### C BC #### [facility] [address] [address] [address] Jeimy Tenorio Glucose [Mass/Vol] 140 mg/dL Critically high 74-106 T [facility] Comment on above: Performed By: #### C BC #### [facility] [address] [address] [address] Jeimy Tenorio Potassium [Moles/Vol] 3.9 mmol/L Normal 3.5-5.1 [facility] Comment on above: Performed By: #### C BC #### [facility] [address] [address] [address] Jeimy Tenorio Protein [Mass/Vol] 7.3 g/dL Normal 6.4-8.2 [facility] Comment on above: Performed By: #### C BC #### [facility] [address] [address] [address] Jeimy Tenorio Sodium [Moles/Vol] 138 mmol/L Normal 136-145 [facility] Comment on above: Performed By: #### C BC #### [facility] [address] [address] [address] Jeimy Tenorio Urea nitrogen [Mass/Vol] 15.0 mg/dL Normal 7.0-18.0 [facility] Comment on above: Performed By: #### C BC #### [facility] [address] [address] [address] Jeimy Tenorio Urea nitrogen/Creatinine [Mass ratio] 15.6 mg/mg Normal [facility] Comment on above: Performed By: #### C BC #### [facility] [address] [address] [address] Jeimy Tenorio [facility] METABOLIC PANE Braxton 10-30-2021 Albumin [Mass/Vol] 4.3 g/dL Normal 3.6-5.1 [facility] Comment on above: Performed By: #### 7 44, 9515, 56059 #### [facility] [address], [address] [place] [id number] [employer]: Yash Campuzano MD Albumin/Globulin [Mass ratio] 1.3 {ratio} Normal 1.0-2.5 [facility] Comment on above: Performed By: #### 7 13, 7600, 94167 #### [facility] of [address], [address] [place] [address] [employer]: Yash Campuzano MD ALP [Catalytic activity/Vol] 152 U/L High 35-144 [facility] Comment on above: Performed By: #### 7 13, 7600, 97231 #### [facility] of [address], [address] [place] [address] [employer]: Yash Campuzano MD ALT [Catalytic activity/Vol] 30 U/L Normal 9-46 [facility] Comment on above: Performed By: #### 7 13, 7600, 92288 #### [facility] of [address], [address] [place] [address] [employer]: Yash Campuzano MD AST [Catalytic activity/Vol] 26 U/L Normal 10-35 [facility] Comment on above: Performed By: #### 7 13, 0, 31189 #### [facility] of [address], [address] [place] [address] [employer]: Yash Campuzano MD Bilirubin [Mass/Vol] 0.4 mg/dL Normal 0.2-1.2 [facility] Comment on above: Performed By: #### 7 13, 7600, 95471 #### [facility] of [address], [address] [place] [address] [employer]: Yash Campuzano MD BUN/CREATININE RATIO NOT APPLICABLE Normal 6-22 [facility] Comment on above: Performed By: #### 7 13, 7600, 36200 #### [facility] of [address], [address] [place] [address] [employer]: Yash Campuzano MD Calcium [Mass/Vol] 8.8 mg/dL Normal 8.6-10.3 [facility] Comment on above: Performed By: #### 7 13, 7600, 23327 #### [facility] of [address], [address] [place] [address] [employer]: Yash Campuzano MD Chloride [Moles/Vol] 104 mmol/L Normal 98-110 [facility] Comment on above: Performed By: #### 7 , 7599, 99815 #### [facility] [address] [address] [employer]: Yash Campuzano MD CO2 [Moles/Vol] 25 mmol/L Normal 20-32 [facility] Comment on above: Performed By: #### 7 , 7599, 80713 #### [facility] [address] [place] [address] [employer]: Yash Campuzano MD Creatinine [Mass/Vol] 0.76 mg/dL Normal 0.70-1.[address] [facility] [address] [facility] Comment on above: Result Comment: For patients >49 years of age, the reference limit for Creatinine is approximately 13% higher for people identified as -St Helenian. Performed By: #### 7 , 7599, 41367 #### [facility] [address] [address] [employer]: Yash Campuzano MD eGFR NON-AFR. TANZANIAN 95 mL/min/1.73m2 Normal > OR = 60 [facility] Comment on above: Performed By: #### 7 , 7599, 79703 #### [facility] [address] [place] [address] [employer]: Yash Campuzano MD GFR/1.73 sq M.predicted among blacks MDRD (S/P/Bld) [Vol rate/Area] 110 mL/min/{1.73_m2} Normal > OR = 60 [facility] Comment on above: Performed By: #### 7 , 7599, 74172 #### [facility] [address] [place] [address] [employer]: Yash Campuzano MD Globulin (S) [Mass/Vol] 3.2 g/dL Normal 1.9-3.7 [facility] Comment on above: Performed By: #### 7 , 7599, 15655 #### [facility] [address] [place] [address] [employer]: Yash Campuzano MD Glucose [Mass/Vol] 103 mg/dL High 65-99 [facility] Comment on above: Result Comment: Fasting reference interval For someone without known diabetes, a glucose value between 100 and 125 mg/dL is consistent with prediabetes and should be confirmed with a follow-up test. Performed By: #### 7 13, 0, 47983 #### [facility] [address] [place] [address] [employer]: Yash Campuzano MD Potassium [Moles/Vol] 4.7 mmol/L Normal 3.5-5.[address] [facility] [address] [facility] Comment on above: Performed By: #### 7 13, 7599, 17553 #### [facility] [address] [place] [address] [employer]: Yash Campuzano MD Protein [Mass/Vol] 7.5 g/dL Normal 6.1-8.1 [facility] Comment on above: Performed By: #### 7 13, 0, 03698 #### [facility] [place] [address] [employer]: Yash Campuzano MD Sodium [Moles/Vol] 137 mmol/L Normal 135-146 [facility] Comment on above: Performed By: #### 7 13, 0, 44355 #### [facility] [place] [address] [employer]: Yash Campuzano MD Urea nitrogen [Mass/Vol] 15 mg/dL Normal 7-25 [facility] Comment on above: Performed By: #### 7 13, 7600, 03560 #### [facility] [address] [place] [address] [employer]: Yash Campuzano MD LIPID PANEL, [facility] 12 Cholesterol [Mass/Vol] 180 mg/dL Normal <200 [facility] Comment on above: Order Comment: FASTI NG:YES FASTING: YES Performed By: #### 7 13, 7600, 23794 #### [facility] [address], [address] [place] [address] [employer]: Yash Campuzano MD Cholesterol in HDL [Mass/Vol] 50 mg/dL Normal > OR = 40 [facility] Comment on above: Order Comment: FASTI NG:YES FASTING: YES Performed By: #### 7 , 7599, 43950 #### [facility] [address], [address] [place] [address] [employer]: Yash Campuzano MD Cholesterol in LDL [Mass/Vol] [...] LDL-C. Gennaro ALMANZAR et al. KO. 2013;310(19): 7964-1548 (http://education.Gizmoz/faq/YUH988) Performed By: #### 7 , 7599, 02968 #### [facility] [address], [address] [place] [address] [employer]: Yash Campuzano MD Cholesterol.total/Cho lesterol in HDL [Mass ratio] 3.6 {ratio} Normal <5.0 [facility] Comment on above: Order Comment: FASTI NG:YES FASTING: YES Performed By: #### 7 , 7599, 27255 #### [facility] [address], [address] [place] [address] [employer]: Yash Campuzano MD NON HDL CHOLESTEROL 130 mg/dL (calc) High <130 [facility] Comment on above: Order Comment: FASTI NG:YES FASTING: YES Result Comment: For patients with diabetes plus 1 major ASCVD risk factor, treating to a non-HDL-C goal of <100 mg/dL (LDL-C of <70 mg/dL) is considered a therapeutic option. Performed By: #### 7 13, 0, 13744 #### [facility] [address] [place] [address] [employer]: Yash Campuzano MD Triglyceride [Mass/Vol] 280 mg/dL High <150 [facility] Comment on above: Order Comment: FASTI NG:YES FASTING: YES Result Comment: If a non-fasting specimen was collected, consider repeat triglyceride testing on a fasting specimen if clinically indicated. Marquise et al. J. of Clin. Lipidol. 2015;9:129-169. Performed By: #### 7 13, 7599, 32461 #### [facility] [place] [address] [employer]: Yash Campuzano MD PHENYTOINon 10-30-2021 Phenytoin [Mass/Vol] 18.9 ug/mL Normal 10.0-20.0 [facility] Comment on above: Performed By: #### 7 , 7599, 44469 #### [facility] [place] [address] [employer]: Yash Campuzano MD CBC (INCLUDES DIFF/PLT)on Basophils (Bld) [#/Vol] 0.071 10*3/uL Normal 0-200 [facility] Comment on above: Performed By: #### 7 , 7599, 6399 #### [facility] [place] [address] [employer]: Yash Campuzano MD Basophils/100 WBC (Bld) 1.2 % Normal [facility] Comment on above: Performed By: #### 7 , 7600, 6399 #### [facility] [place] [address] [employer]: Yash Campuzano MD Eosinophils (Bld) [#/Vol] 0.277 10*3/uL Normal 15-500 [facility] Comment on above: Performed By: #### 7 , 7599, 6399 #### [facility] [address] [place] [address] [employer]: Yash Campuzano MD Eosinophils/100 WBC (Bld) 4.7 % Normal [facility] Comment on above: Performed By: #### 7 , 7599, 6399 #### [facility] of [address], [address] [place] [address] [employer]: Yash Campuzano MD Erythrocyte distribution width (RBC) [Ratio] 12.8 % Normal 11.0-15.0 [facility] Comment on above: Performed By: #### 7 , 7599, 6399 #### [facility] of [address] [place] [address] [employer]: Yash Campuzano MD Hematocrit (Bld) [Volume fraction] 42.1 % Normal 38.5-50.0 [facility] Comment on above: Performed By: #### 7 , 7599, 63 #### [facility] of [address] [place] [address] [employer]: Yash Campuzano MD Hemoglobin (Bld) [Mass/Vol] 14.9 g/dL Normal 13.2-17.1 [facility] Comment on above: Performed By: #### 7 , 7599, 6399 #### [facility] of [address] [place] [address] [employer]: Yash Campuzano MD Lymphocytes (Bld) [#/Vol] 1.068 10*3/uL Normal 850-3900 [facility] Comment on above: Performed By: #### 7 , 7599, 6399 #### [facility] of [address], [address] [place] [address] [employer]: Yash Campuzano MD Lymphocytes/100 WBC (Bld) 18.1 % Normal [facility] Comment on above: Performed By: #### 7 , 7599, 6399 #### [facility] of [address] [place] [address] [employer]: Yash Campuzano MD MCH (RBC) [Entitic mass] 32.9 pg Normal 27.0-33.0 [facility] Comment on above: Performed By: #### 7 13, 7599, 6399 #### [facility] of [address] [place] [address] [employer]: Yash Campuzano MD MCHC (RBC) [Mass/Vol] 35.4 g/dL Normal 32.0-36.[address] [facility] Comment on above: Performed By: #### 7 13, 7599, 6399 #### [facility] of [address] [place] [address] [employer]: Yash Campuzano MD MCV (RBC) [Entitic vol] 92.9 fL Normal 80.0-100.0 [facility] Comment on above: Performed By: #### 7 13, 7599, 6399 #### [facility] of [address] [place] [address] [employer]: Yash Campuzano MD Monocytes (Bld) [#/Vol] 0.531 10*3/uL Normal 200-950 [facility] Comment on above: Performed By: #### 7 , 7599, 6399 #### [facility] of [address] [place] [address] [employer]: Yash Campuzano MD Monocytes/100 WBC (Bld) 9.0 % Normal [facility] Comment on above: Performed By: #### 7 , 7599, 6399 #### [facility] of [address] [place] [address] [employer]: Yash Campuzano MD Neutrophils (Bld) [#/Vol] 3.953 10*3/uL Normal 2079-2283 [facility] Comment on above: Performed By: #### 7 , 7599, 6399 #### [facility] of [address] [place] [address] [employer]: Yash Campuzano MD Neutrophils/100 WBC (Bld) 67 % Normal [facility] Comment on above: Performed By: #### 7 , 7599, 6399 #### [facility] of [address], [address] [place] [address] [employer]: Yash Campuzano MD Platelet mean volume (Bld) [Entitic vol] 11.0 fL Normal 7.5-12.5 [facility] Comment on above: Performed By: #### 7 13, 7599, 6399 #### [facility] of [address], [address] [place] [address] [employer]: Yash Campuzano MD Platelets (Bld) [#/Vol] 200 10*3/uL Normal 140-400 [facility] Comment on above: Performed By: #### 7 13, 7599, 6399 #### [facility] of [address], [address] [place] [address] [employer]: Yash Campuzano MD RBC (Bld) [#/Vol] 4.53 10*6/uL Normal 4.20-5.80 [facility] Comment on above: Performed By: #### 7 13, 7599, 6399 #### [facility] of [address], [address] [place] [address] [employer]: Yash Campuzano MD WBC (Bld) [#/Vol] 5.9 10*3/uL Normal 3.8-10.8 [facility] Comment on above: Performed By: #### 7 13, 7599, 6399 #### [facility] of [address], [address] [place] [address] [employer]: Yash Campuzano MD LIPID PANEL, [facility] 05-2 Cholesterol [Mass/Vol] 218 mg/dL High <200 [facility] Comment on above: Order Comment: FASTI NG:YES FASTING: YES Performed By: #### 7 13, 760, 6399 #### [facility] of [address], [address] [place] [address] [employer]: Yash Campuzano MD Cholesterol in HDL [Mass/Vol] 55 mg/dL Normal > OR = 40 [facility] Comment on above: Order Comment: FASTI NG:YES FASTING: YES Performed By: #### 7 , 680, 9519 #### [facility] [address], [address] [place] [address] [employer]: Yash Campuzano MD Cholesterol in LDL [Mass/Vol] [...] LDL-C. Gennaro SS et al. KO. 2013;310(19): 1130-9073 (http://education.Gizmoz/faq/PEK596) Performed By: #### 7 , 661, 2277 #### [facility] [address], [address] [place] [address] [employer]: Yash Campuzano MD Cholesterol.total/Cho lesterol in HDL [Mass ratio] 4.0 {ratio} Normal <5.0 [facility] Comment on above: Order Comment: FASTI NG:YES FASTING: YES Performed By: #### 7 , 884, 5657 #### [facility] [address], [address] [place] [address] [employer]: Yash Campuzano MD NON HDL CHOLESTEROL 163 mg/dL (calc) High <130 [facility] Comment on above: Order Comment: FASTI NG:YES FASTING: YES Result Comment: For patients with diabetes plus 1 major ASCVD risk factor, treating to a non-HDL-C goal of <100 mg/dL (LDL-C of <70 mg/dL) is considered a therapeutic option. Performed By: #### 7 , 0760, 6417 #### [facility] [address], [address] [place] [address] [employer]: Yash Campuzano MD Triglyceride [Mass/Vol] 200 mg/dL High <150 [facility] Comment on above: Order Comment: FASTI NG:YES FASTING: YES Result Comment: If a non-fasting specimen was collected, consider repeat triglyceride testing on a fasting specimen if clinically indicated. Marquise et al. J. of Clin. Lipidol. 2015;9:129-169. Performed By: #### 7 13, 7600, 6399 #### [facility] [address], [address] [place] [address] [employer]: Yash Campuzano MD PHENYTOINon 04-18-2021 Phenytoin [Mass/Vol] 25.0 ug/mL High 10.0-20.0 [facility] Comment on above: Performed By: #### 7 13, 7600, 6399 #### [facility] [address], [address] [place] [address] [employer]: Yash Campuzano MD APTTon 11-20-2020 aPTT Coag (Bld) [Time] 33.4 s Normal 25.0-35.0 [facility] Comment on above: Result Comment: ALL [...] THIS PURPOSE. Performed By: #### 5 6101, 54045 ####[facility] BNP EDon 11-20-2020 Natriuretic peptide B (Bld) [Mass/Vol] 111 pg/mL High 0-100 [facility] Comment on above: Result Comment: Give n the appropriate clinical setting a BNP result of >100 pg/mL indicates congestive heart failure. Performed By: #### 3 0935 #### [facility] [address] [place] [address], [facility] CBC W/DIFFon 11-20-2020 ABS IMM GRANS 0.0 10*3/uL Normal 0.0-0.2 [facility] Comment on above: Performed By: #### 5 0103 ####[facility] [place] [address], [facility] ABS NEUTROPHILS 3.9 10*3/uL Normal 1.6-7.6 [facility] Comment on above: Performed By: #### 5 0103 ####[facility] [place] [address], [facility] Basophils (Bld) [#/Vol] 0.1 10*3/uL Normal 0.0-0.2 [facility] Comment on above: Performed By: #### 5 0103 ####[facility] [place] [address], [facility] Basophils/100 WBC (Bld) 1.0 % Normal 0.0-1.0 [facility] Comment on above: Performed By: #### 5 0103 ####[facility] [place] [address], [facility] Eosinophils (Bld) [#/Vol] 0.3 10*3/uL Normal 0.0-0.5 [facility] Comment on above: Performed By: #### 5 0103 ####[facility] [place] [address], [facility] Eosinophils/100 WBC (Bld) 5.1 % Normal 0.0-6.0 [facility] Comment on above: Performed By: #### 5 0103 ####[facility] [place] [address], [facility] Erythrocyte distribution width (RBC) [Ratio] 13.1 % Normal 11.5-15.0 [facility] Comment on above: Performed By: #### 5 3 ####[facility] [place] [address], [facility] Hematocrit (Bld) [Volume fraction] 45.4 % Normal 39.0-50.0 [facility] Comment on above: Performed By: #### 5 0103 ####[facility] [facility].[address] Hemoglobin (Bld) [Mass/Vol] 14.8 g/dL Normal 13.0-17.0 [facility] Comment on above: Performed By: #### 5 0103 ####[facility] IMMATURE GRANS 0.3 % Normal 0.0-1.0 [facility] Comment on above: Performed By: #### 5 0103 ####[address] Lymphocytes (Bld) [#/Vol] 1.0 10*3/uL Low 1.2-4.0 [facility] Comment on above: Performed By: #### 5 0103 ####[facility] Lymphocytes/100 WBC (Bld) 17.5 % Low 20.0-45.0 [facility] Comment on above: Performed By: #### 5 0103 ####[address] MCH (RBC) [Entitic mass] 32.5 pg Normal 27.0-33.0 [facility] Comment on above: Performed By: #### 5 0103 ####[facility] MCHC (RBC) [Mass/Vol] 32.6 g/dL Normal 32.0-35.0 [facility] Comment on above: Performed By: #### 5 3 ####[facility] [place] [address] MCV (RBC) [Entitic vol] 99.6 fL High 82.0-98.0 [facility] Comment on above: Performed By: #### 102 ####[facility] [facility].[address] Monocytes (Bld) [#/Vol] 0.6 10*3/uL Normal 0.1-1.0 [facility] Comment on above: Performed By: #### 102 ####[facility] MONOS 9.4 % Normal 5.0-12.0 [facility] Comment on above: Performed By: #### 5 102 ####[facility] Neutrophils/100 WBC (Bld) 66.7 % Normal 40.0-72.0 [facility] Comment on above: Performed By: #### 102 ####[facility] Nucleated RBC/100 WBC (Bld) [Ratio] 0 % Normal 0-0 [facility] Comment on above: Performed By: #### 102 ####[facility] PLAT CNT 175 10*3/uL Normal 150-400 [facility] Comment on above: Performed By: #### 5 102 ####[facility] RBC (Bld) [#/Vol] 4.56 10*6/uL Normal 4.20-5.70 [facility] Comment on above: Performed By: #### 102 ####[facility] WBC (Bld) [#/Vol] 5.88 10*3/uL Normal 4.00-10.60 [facility] Comment on above: Performed By: #### 5 0103 ####[facility] [place] [place] [address], [facility] COMP METABOLIC PANELon 11-20 Albumin [Mass/Vol] 4.0 g/dL Normal 3.5-5.7 [facility] Comment on above: Performed By: #### 0 0121, 41479, 09380, 11321 #### [facility] [address] [place] [address], [place] ALKALINE PHOSPH 130 IU/L High 34-104 [facility] Comment on above: Performed By: #### 0 0121, 43881, 51884, 93432 #### [facility] [address] [place] [address], [place] ALT [Catalytic activity/Vol] 18 U/L Normal 7-52 [facility] Comment on above: Performed By: #### 0 0121, 15039, 13240, 75686 #### [facility] [address] [place] [address], [place] AST [Catalytic activity/Vol] 19 U/L Normal 13-39 [facility] Comment on above: Performed By: #### 0 0121, 72292, 79164, 61221 #### [facility] [address] [place] [address], [place] Bilirubin [Mass/Vol] 0.4 mg/dL Normal 0.3-1.0 [facility] Comment on above: Performed By: #### 0 0121, 04202, 77854, 21819 #### [facility] [address] [place] [address], [place] Calcium [Mass/Vol] 9.0 mg/dL Normal 8.6-10.3 [facility] Comment on above: Performed By: #### 0 0121, 59634, 02876, 95851 #### [facility] [address] [place] [address], [place] Chloride [Moles/Vol] 103 mmol/L Normal 98-107 [facility] Comment on above: Performed By: #### 0 0121, 09263, 39998, 38869 #### [facility] [address] [place] [address], [place] CO2 [Moles/Vol] 28 mmol/L Normal 21-31 [facility] Comment on above: Performed By: #### 0 0121, 70472, 80554, 48687 #### [facility] [address] [place] [address], [place] Creatinine [Mass/Vol] 0.77 mg/dL Normal 0.70-1.30 [facility] Comment on above: Performed By: #### 0 0121, 74251, 44570, 17693 #### [facility] [address] [place] [address], [place] GFR/1.73 sq M.predicted among blacks MDRD (S/P/Bld) [Vol rate/Area] mL/min/{1.73_m2} Normal >60 [facility] Comment on above: Performed By: #### 0 0121, 25305, 29167, 37531 #### [facility] [address] [place] [address], [place] GFR/1.73 sq M.predicted among non-blacks MDRD (S/P/Bld) [Vol rate/Area] mL/min/{1.73_m2} Normal >60 [facility] Comment on above: Performed By: #### 0 0121, 84907, 75745, 10393 #### [facility] [address] [place] [address], [place] Glucose [Mass/Vol] 88 mg/dL Normal 70-100 [facility] Comment on above: Performed By: #### 0 0121, 06531, 29340, 00181 #### [facility] [address] [place] [address], [place] Potassium [Moles/Vol] 4.9 mmol/L Normal 3.5-5.1 [facility] Comment on above: Performed By: #### 0 0121, 21277, 08242, 03306 #### [facility] [address] [place] [address], [facility] Protein [Mass/Vol] 7.3 g/dL Normal 6.0-8.3 [facility] Comment on above: Performed By: #### 0 0121, 66043, 05742, 53179 #### [facility] [address] [facility] [place] [address], [facility] Sodium [Moles/Vol] 138 mmol/L Normal 136-145 [facility] Comment on above: Performed By: #### 0 0121, 97946, 66445, 53221 #### [facility] [address] [facility] [address], [facility] Urea nitrogen [Mass/Vol] 15 mg/dL Normal 7-25 [facility] Comment on above: Performed By: #### 0 0121, 16213, 38834, 85303 #### [facility] [address] CTA HEADon 11-20-2020 CTA HEAD [facility] Department of Radiology [address] [place], [place] [id number] ======== Patient Name: NAZARIO CORTES : 1955 Sex: M Age: Race: White Pt. Location: [facility] Patient Status: E Ordered Date: 11/20/2020 [...] stenosis of the major vessels of the [place]. origin of bilateral posterior cerebral arteries. IMPRESSION: Normal CTA of the brain. All CT scans at this facility use dose modulation, iterative reconstruction, and/or weight based dosing when appropriate to reduce radiation dose to as low as reasonably achievable. Electronically signed: Dhaval Ghotra. Transcribed by: [email or web address], User Resident: Electronically Signed by: DHAVAL GHOTRA @ 11/20/2020 12:58 PM Normal [facility] Comment on above: Order Comment: Bleed CTA [facility] 11-20-2020 CTA [facility] Department of Radiology [address] [place] [id number] ======== Patient Name: NAZARIO CORTES : 1955 Sex: M Age: Race: White Pt. Location: [facility] Patient Status: E Ordered Date: 11/20/2020 [...] achievable Electronically signed: Dhaval Ghotra. Transcribed by: [email or web address], User Resident: Electronically Signed by: DHAVAL GHOTRA @ 11/20/2020 12:57 PM Normal [facility] DIRECT BILIon 11-20-2020 Bilirubin.direct [Mass/Vol] 0.1 mg/dL Normal 0.0-0.2 [facility] Comment on above: Order Comment: Liver Battery conflicts with Comprehensive Metabolic Panel. Liver Battery canceled and Direct Bilirubin added. Performed By: #### 0 0121, 53858, 45866, 54275 #### [facility] [address] [facility]. [address] LIPASE BLOODon 11-20-2020 LIPASE 27 Units/L Normal 11-82 [facility] Comment on above: Performed By: #### 0 0121, 58576, 10926, 85079 #### [facility] [address] [facility]. [address] POC SARS COV2 ANTIGEN NEGATI VEon 11-20-2020 POC SARS COV2 ANTIGEN N Negative Normal NEGATIVE [facility] Comment on above: Result Comment: Test performed on [facility] for rapid detection of SARS-CoV-2. Negative [...] management. Performed By: #### 3 1919 #### [facility] [address] PORTABLE CHEST 1 VIEWon 10-23 PORTABLE CHEST 1 VIEW [facility] Department of Radiology [address] [place], [place] [id number] ======== Patient Name: NAZARIO CORTES : 1955 Sex: M Age: Race: White Pt. Location: [facility] Patient Status: E Ordered Date: 11/20/2020 11:20:00 AM Completed Date: 11/20/2020 11:43 AM Requesting Provider: DUNN, MANUEL Attending Provider: KARINA JAY Report Copy To: [...] reports Electronically signed: Dhaval Ghotra. Transcribed by: [email or web address], User Resident: JESSENIA ALFORD Electronically Signed by: DHAVAL GHOTRA @ 11/20/2020 12:32 PM I personally read this/these film(s) with this resident Normal [facility] Comment on above: Order Comment: evalu ate for Pneumonia PROTHROMBIN TIMEon 0 INR Coag (PPP) [Relative time] 0.95 {INR} Normal 0.91-1.16 [facility] Comment on above: Result Comment: [facility] P RECOMMENDED INR FOR WARFARIN THERAPY -------- [...] CHEST 1995;[id number]. Performed By: #### 5 6101, 35806 ####[facility] PT Coag (PPP) [Time] 12.7 s Normal 12.3-14.8 Comment on above: Result Comment: ALL RESULTS MUST BE INTERPRETED WITH RESPECT TO BLOOD DRAWING ARTIFACT OR DILUTION ERROR OF ANTICOAGULANT AT THE TIME OF SAMPLING. Performed By: #### 5 6101, 88930 ####[facility] [address] TROPONIN-Ion 11-20-2020 Troponin I.cardiac [Mass/Vol] 0.00 ng/mL Normal 0.00-0.04 Comment on above: Order Comment: No: D o not add to previous draw Result Comment: REFE RENCE RANGES: 0.00 - 0.14 ng/ml NEGATIVE 0.15 - 0.25 ng/ml INDETERMINATE > 0.25 ng/ml INDICATIVE OF AN M.I. Performed By: #### 3 5200 #### [facility] [address] [place] [address], [facility] Troponin I.cardiac [Mass/Vol] 0.00 ng/mL Normal 0.00-0.04 Comment on above: Result Comment: REFE RENCE RANGES: 0.00 - 0.14 ng/ml NEGATIVE 0.15 - 0.25 ng/ml INDETERMINATE > 0.25 ng/ml INDICATIVE OF AN M.I. Performed By: #### 0 0121, 50083, 91366, 37018 #### [facility] [address] Vital Signs Date Time Vital Sign Value Performing Clinician Facility 05-26-2025 11:53-0400 Body height 184.15 cm Jignesh Gonsalez MD Work Phone: [facility] 05-26-2025 11:53-0400 Body mass index (BMI) [Ratio] 42.1 kg/m2 Jignesh Gonsalez MD Work Phone: [facility] 05-26-2025 11:53-0400 Body temperature 98 [degF] Jignesh Gonsalez MD Work Phone: [facility] 05-26-2025 11:53-0400 Body weight 142.88 kg Jignesh Gonsalez MD Work Phone: [facility] 05-26-2025 11:53-0400 Diastolic blood pressure 71 mm[Hg] Jignesh Gonsalez MD Work Phone: [facility] 05-26-2025 11:53-0400 Heart rate 73 /min Jignesh Gonsalez MD Work Phone: [facility] 05-26-2025 11:53-0400 Inhaled oxygen flow rate 2 L/min Jignesh Gonsalez MD Work Phone: [facility] 05-26-2025 11:53-0400 Respiratory rate 20 /min Jignesh Gonsalez MD Work Phone: [facility] 05-26-2025 11:53-0400 SaO2% (BldA) [Mass fraction] 92 % Jignesh Gonsalez MD Work Phone: [facility] 05-26-2025 11:53-0400 Systolic blood pressure 121 mm[Hg] Jignesh Gonsalez MD Work Phone: [facility] 05-23-2025 13:45-0400 Body height 185.4 cm Jignesh Gonsalez MD Work Phone: [facility] 05-23-2025 13:45-0400 Body mass index (BMI) [Ratio] 42.09 kg/m2 Jignesh Gonsalez MD Work Phone: [facility] 05-23-2025 13:45-0400 Body temperature 97.81 [degF] Jignesh Gonsalez MD Work Phone: [facility] 05-23-2025 13:45-0400 Body weight 144.7 kg Jignesh Gonsalez MD Work Phone: [facility] 05-23-2025 13:45-0400 Diastolic blood pressure 70 mm[Hg] Jignesh Gonsalez MD Work Phone: [facility] 05-23-2025 13:45-0400 Heart rate 82 /min Jignesh Gonsalez MD Work Phone: [facility] 05-23-2025 13:45-0400 Respiratory rate 22 /min Jignesh Gonsalez MD Work Phone: [facility] 05-23-2025 13:45-0400 SaO2% (BldA) [Mass fraction] 93 % Jignesh Gonsalez MD Work Phone: [facility] 05-23-2025 13:45-0400 Systolic blood pressure 142 mm[Hg] Jignesh Gonsalez MD Work Phone: [facility] 05-12-2025 11:58-0400 Body height 184.15 cm Jignesh Gonsalez MD Work Phone: [facility] 05-12-2025 11:58-0400 Body mass index (BMI) [Ratio] 42.3 kg/m2 Jignesh Gonsalez MD Work Phone: [facility] 05-12-2025 11:58-0400 Body temperature 98 [degF] Jignesh Gonsalez MD Work Phone: [facility] 05-12-2025 11:58-0400 Body weight 143.44 kg Jignesh Gonsalez MD Work Phone: [facility] 05-12-2025 11:58-0400 Diastolic blood pressure 64 mm[Hg] Jignesh Gonsalez MD Work Phone: [facility] 05-12-2025 11:58-0400 Heart rate 90 /min Jignesh Gonsalez MD Work Phone: [facility] 05-12-2025 11:58-0400 Respiratory rate 19 /min Jignesh Gonsalez MD Work Phone: [facility] 05-12-2025 11:58-0400 SaO2% (BldA) [Mass fraction] 98 % Jignesh Gonsalez MD Work Phone: [facility] 05-12-2025 11:58-0400 Systolic blood pressure 112 mm[Hg] Jignesh oGnsalez MD Work Phone: [facility] 04-26-2025 11:56-0400 Body height 185.4 cm Jignesh Gonsalez MD Work Phone: [facility] 04-26-2025 11:56-0400 Body mass index (BMI) [Ratio] 41.43 kg/m2 Jignesh Gonsalez MD Work Phone: [facility] 04-26-2025 11:56-0400 Body temperature 97.3 [degF] Jignesh Gonsalez MD Work Phone: [facility] 04-26-2025 11:56-0400 Body weight 142.43 kg Jignesh Gonsalez MD Work Phone: [facility] 04-26-2025 11:56-0400 Diastolic blood pressure 66 mm[Hg] Jignesh Gonsalez MD Work Phone: [facility] 04-26-2025 11:56-0400 Heart rate 42 /min Jignesh Gonsalez MD Work Phone: [facility] 04-26-2025 11:56-0400 Respiratory rate 22 /min Jignesh Gonsalez MD Work Phone: [facility] 04-26-2025 11:56-0400 SaO2% (BldA) [Mass fraction] 91 % Jignesh Gonsalez MD Work Phone: [facility] 04-26-2025 11:56-0400 Systolic blood pressure 128 mm[Hg] Jignesh Gonsalez MD Work Phone: [facility] 04-02-2025 12:08-0400 Body height 185.4 cm Jignesh Gonsalez MD Work Phone: [facility] 04-02-2025 12:08-0400 Body mass index (BMI) [Ratio] 40.64 kg/m2 Jignesh Gonsalez MD Work Phone: [facility] 04-02-2025 12:08-0400 Body temperature 97.5 [degF] Jignesh Gonsalez MD Work Phone: [facility] 04-02-2025 12:08-0400 Body weight 139.71 kg Jignesh Gonsalez MD Work Phone: [facility] 04-02-2025 12:08-0400 Diastolic blood pressure 64 mm[Hg] Jignesh Gonsalez MD Work Phone: [facility] 04-02-2025 12:08-0400 Heart rate 66 /min Jignesh Gonsalez MD Work Phone: [facility] 04-02-2025 12:08-0400 Respiratory rate 22 /min Jignesh Gonsalez MD Work Phone: [facility] 04-02-2025 12:08-0400 SaO2% (BldA) [Mass fraction] 96 % Jignesh Gonsalez MD Work Phone: [facility] 04-02-2025 12:08-0400 Systolic blood pressure 128 mm[Hg] Jignesh Gonsalez MD Work Phone: [facility] 02-20-2025 13:33-0400 Body height 185.4 cm Jignesh Gonsalez MD Work Phone: [facility] 02-20-2025 13:33-0400 Body mass index (BMI) [Ratio] 40.77 kg/m2 Jignesh Gonsalez MD Work Phone: [facility] 02-20-2025 13:33-0400 Body temperature 96.6 [degF] Jignesh Gonsalez MD Work Phone: [facility] 02-20-2025 13:33-0400 Body weight 140.16 kg Jignesh Gonsalez MD Work Phone: [facility] 02-20-2025 13:33-0400 Diastolic blood pressure 76 mm[Hg] Jignesh Gonsalez MD Work Phone: [facility] 02-20-2025 13:33-0400 Heart rate 85 /min Jignesh Gonsalez MD Work Phone: [facility] 02-20-2025 13:33-0400 Respiratory rate 22 /min Jignesh Gonsalez MD Work Phone: [facility] 02-20-2025 13:33-0400 SaO2% (BldA) [Mass fraction] 92 % Jignesh Gonsalez MD Work Phone: [facility] 02-20-2025 13:33-0400 Systolic blood pressure 154 mm[Hg] Jignesh Gonsalez MD Work Phone: [facility] 01-21-2025 13:40-0500 Body height 185.4 cm Jignesh Gonsalez MD Work Phone: [facility] 01-21-2025 13:40-0500 Body mass index (BMI) [Ratio] 41.03 kg/m2 Jignesh Gonsalez MD Work Phone: [facility] 01-21-2025 13:40-0500 Body temperature 97.5 [degF] Jignesh Gonsalez MD Work Phone: [facility] 01-21-2025 13:40-0500 Body weight 141.07 kg Jignesh Gonsalez MD Work Phone: [facility] 01-21-2025 13:40-0500 Diastolic blood pressure 64 mm[Hg] Jignesh Gonsalez MD Work Phone: [facility] 01-21-2025 13:40-0500 Heart rate 87 /min Jignesh Gonsalez MD Work Phone: [facility] 01-21-2025 13:40-0500 Respiratory rate 20 /min Jignesh Gonsalez MD Work Phone: [facility] 01-21-2025 13:40-0500 SaO2% (BldA) [Mass fraction] 91 % Jignesh Gonsalez MD Work Phone: [facility] 01-21-2025 13:40-0500 Systolic blood pressure 130 mm[Hg] Jignesh Gonsalez MD Work Phone: [facility] 12-19-2024 13:35-0500 Body height 185.4 cm Amrik Pérez MD Work Phone: [facility] 12-19-2024 13:35-0500 Body mass index (BMI) [Ratio] 40.37 kg/m2 Amrik Pérez MD Work Phone: [facility] 12-19-2024 13:35-0500 Body weight 138.8 kg Amrik Pérez MD Work Phone: [facility] 12-19-2024 13:35-0500 Diastolic blood pressure 64 mm[Hg] Amrik Pérez MD Work Phone: [facility] 12-19-2024 13:35-0500 Heart rate 80 /min Amrik Pérez MD Work Phone: [facility] 12-19-2024 13:35-0500 Systolic blood pressure 112 mm[Hg] Amrik Pérez MD Work Phone: [facility] 11-22-2024 15:42-0500 Body height 185.4 cm Jignesh Gonsalez MD Work Phone: [facility] 11-22-2024 15:42-0500 Body mass index (BMI) [Ratio] 41.16 kg/m2 Jignesh Gonsalez MD Work Phone: [facility] 11-22-2024 15:42-0500 Body temperature 97.5 [degF] Jignesh Gonsalez MD Work Phone: [facility] 11-22-2024 15:42-0500 Body weight 141.52 kg Jignesh Gonsalez MD Work Phone: [facility] 11-22-2024 15:42-0500 Diastolic blood pressure 66 mm[Hg] Jignesh Gonsalez MD Work Phone: [facility] 11-22-2024 15:42-0500 Heart rate 33 /min Jignesh Gonsalez MD Work Phone: [facility] 11-22-2024 15:42-0500 Respiratory rate 20 /min Jignesh Gonsalez MD Work Phone: [facility] 11-22-2024 15:42-0500 SaO2% (BldA) [Mass fraction] 89 % Jignesh Gonsalez MD Work Phone: [facility] 11-22-2024 15:42-0500 Systolic blood pressure 148 mm[Hg] Jignesh Gonsalez MD Work Phone: [facility] 10-25-2024 15:32-0500 Body height 185.4 cm Jignesh Gonsalez MD Work Phone: [facility] 10-25-2024 15:32-0500 Body mass index (BMI) [Ratio] 40.9 kg/m2 Jignesh Gonsalez MD Work Phone: [facility] 10-25-2024 15:32-0500 Body temperature 97.5 [degF] Jignesh Gonsalez MD Work Phone: [facility] 10-25-2024 15:32-0500 Body weight 140.62 kg Jignesh Gonsalez MD Work Phone: [facility] 10-25-2024 15:32-0500 Diastolic blood pressure 70 mm[Hg] Jignesh Gonsalez MD Work Phone: [facility] 10-25-2024 15:32-0500 Heart rate 87 /min Jignesh Gonsalez MD Work Phone: [facility] 10-25-2024 15:32-0500 Respiratory rate 22 /min Jignesh Gonsalez MD Work Phone: [facility] 10-25-2024 15:32-0500 SaO2% (BldA) [Mass fraction] 90 % Jignesh Gonsalez MD Work Phone: [facility] 10-25-2024 15:32-0500 Systolic blood pressure 150 mm[Hg] Jignesh Gonsalez MD Work Phone: [facility] 09-07-2024 14:54-0400 Body height 185.42 cm MD Jignesh Gonsalez Work Phone: [facility] 09-07-2024 14:54-0400 Body mass index (BMI) [Ratio] 39.2 kg/m2 MD Jignesh Gonsalez Work Phone: [facility] 09-07-2024 14:54-0400 Body temperature 96.8 [degF] MD Jignesh Gonsalez Work Phone: [facility] 09-07-2024 14:54-0400 Body weight 134.94 kg MD Jignesh Gonsalez Work Phone: [facility] 09-07-2024 14:54-0400 Diastolic blood pressure 78 mm[Hg] MD Jignesh Gonsalez Work Phone: [facility] 09-07-2024 14:54-0400 Heart rate 93 /min MD Jignesh Gonsalez Work Phone: [facility] 09-07-2024 14:54-0400 Respiratory rate 20 /min MD Jignesh Gonsalez Work Phone: [facility] 09-07-2024 14:54-0400 SaO2% (BldA) [Mass fraction] 94 % MD Jignesh Gonsalez Work Phone: [facility] 09-07-2024 14:54-0400 Systolic blood pressure 119 mm[Hg] MD Jignesh Gonsalez Work Phone: [facility] 08-16-2024 10:34-0400 Body height 185.42 cm [facility] 08-16-2024 10:34-0400 Body mass index (BMI) [Ratio] 39 kg/m2 [facility] 08-16-2024 10:34-0400 Body temperature 96.8 [degF] [facility] 08-16-2024 10:34-0400 Body weight 134.26 kg [facility] 08-16-2024 10:34-0400 Diastolic blood pressure 77 mm[Hg] [facility] 08-16-2024 10:34-0400 Heart rate 73 /min [facility] 08-16-2024 10:34-0400 Respiratory rate 18 /min [facility] 08-16-2024 10:34-0400 SaO2% (BldA) [Mass fraction] 96 % [facility] 08-16-2024 10:34-0400 Systolic blood pressure 125 mm[Hg] [facility] 08-09-2024 13:10-0400 Body height 185.42 cm MD Jignesh Gonsalez Work Phone: [facility] 08-09-2024 13:10-0400 Body mass index (BMI) [Ratio] 39 kg/m2 MD Jignesh Gonsalez Work Phone: [facility] 08-09-2024 13:10-0400 Body temperature 98.5 [degF] MD Jignesh Gonsalez Work Phone: [facility] 08-09-2024 13:10-0400 Body weight 134.26 kg MD Jignesh Gonsalez Work Phone: [facility] 08-09-2024 13:10-0400 Diastolic blood pressure 64 mm[Hg] MD Jignesh Gonsalez Work Phone: [facility] 08-09-2024 13:10-0400 Heart rate 75 /min MD Jignesh Gonsalez Work Phone: [facility] 08-09-2024 13:10-0400 Respiratory rate 18 /min MD Jignesh Gonsalez Work Phone: [facility] 08-09-2024 13:10-0400 SaO2% (BldA) [Mass fraction] 93 % MD Jignesh Gonsalez Work Phone: [facility] 08-09-2024 13:10-0400 Systolic blood pressure 98 mm[Hg] MD Jignesh Gonsalez Work Phone: [facility] 05-15-2024 15:36-0400 Body height 185.42 cm MD Jignesh Gonsalez Work Phone: [facility] 05-15-2024 15:36-0400 Body mass index (BMI) [Ratio] 36.9 kg/m2 MD Jignesh Gonsalez Work Phone: [facility] 05-15-2024 15:36-0400 Body temperature 97.5 [degF] MD Jignesh Gonsalez Work Phone: [facility] 05-15-2024 15:36-0400 Body weight 127 kg MD Jignesh Gonsalez Work Phone: [facility] 05-15-2024 15:36-0400 Diastolic blood pressure 74 mm[Hg] MD Jignesh Gonsalez Work Phone: [facility] 05-15-2024 15:36-0400 Heart rate 81 /min MD Jignesh Gonsalez Work Phone: [facility] 05-15-2024 15:36-0400 Respiratory rate 18 /min MD Jignesh Gonsalez Work Phone: [facility] 05-15-2024 15:36-0400 SaO2% (BldA) [Mass fraction] 93 % MD Jignesh Gonsalez Work Phone: [facility] 05-15-2024 15:36-0400 Systolic blood pressure 119 mm[Hg] MD Jignesh Gonsalez Work Phone: [facility] 04-23-2024 13:06-0400 Body height 185.42 cm [facility] 04-23-2024 13:06-0400 Body mass index (BMI) [Ratio] 36.9 kg/m2 [facility] 04-23-2024 13:06-0400 Body temperature 97.3 [degF] [facility] 04-23-2024 13:06-0400 Body weight 127 kg [facility] 04-23-2024 13:06-0400 Diastolic blood pressure 56 mm[Hg] [facility] 04-23-2024 13:06-0400 Heart rate 80 /min [facility] 04-23-2024 13:06-0400 Respiratory rate 18 /min [facility] 04-23-2024 13:06-0400 SaO2% (BldA) [Mass fraction] 97 % [facility] 04-23-2024 13:06-0400 Systolic blood pressure 106 mm[Hg] [facility] 07-05-2023 10:00-0400 Body height 185.42 cm Luiz Riggs Other [employer] [facility] [employer] Other 07-05-2023 10:00-0400 Body mass index (BMI) [Ratio] 37.86 kg/m2 Luiz Riggs Other [employer] Other 07-05-2023 10:00-0400 Body weight 130.18 kg Luiz Riggs Other [employer] Other 07-05-2023 10:00-0400 Diastolic blood pressure 76 mm[Hg] Luiz Riggs Other [employer] Other 07-05-2023 10:00-0400 Systolic blood pressure 126 mm[Hg] Luiz Riggs Other [employer] Other 04-06-2022 17:40-0400 Body height 185.42 cm Neelam Blackburnmond Other [employer] Other 04-06-2022 17:40-0400 Body mass index (BMI) [Ratio] 36.15 kg/m2 Neelam Alexandra Other [employer] Other 04-06-2022 17:40-0400 Body temperature 98 [degF] Neelam Alexandra Other [employer] Other 04-06-2022 17:40-0400 Body weight 124.29 kg Neelam Alexandra Other [employer] Other 04-06-2022 17:40-0400 Diastolic blood pressure 69 mm[Hg] Neelam Alexandra Other [employer] Other 04-06-2022 17:40-0400 Respiratory rate 18 /min Neelam Alexandra Other [employer] Other 04-06-2022 17:40-0400 SaO2% (BldA) [Mass fraction] 95 % Neelam Alexandra Other [employer] Other 04-06-2022 17:40-0400 Systolic blood pressure 123 mm[Hg] Neelam Alexandra Other [employer] Other 12-28-2021 17:00-0500 Body height 185.42 cm Alex Bonilla Other [employer] Other 12-28-2021 17:00-0500 Body mass index (BMI) [Ratio] 37.47 kg/m2 Alex Bonilla Other [employer] Other 12-28-2021 17:00-0500 Body weight 128.82 kg Alex Bonilla Other [facility] Other Encounters Encounter Date Encounter Type Care Provider Facility Start: 05-26-2025 End: 05-26-2025 ambulatory Jignesh Gonsalez MD Work Phone: [facility] Work Phone: Start: 05-26-2025 End: 05-26-2025 Patient encounter procedure Kaykay AponteDarlinLevon [employer] [facility] [place] Work Phone: Start: 05-23-2025 End: 05-23-2025 Bamboo flowsheet Jignesh Gonsalez MD Work Phone: [facility] Start: 05-23-2025 End: 05-23-2025 Bamboo [employer] Jignesh Gonsalez MD Work Phone: [facility] Start: 05-23-2025 End: 05-23-2025 Office outpatient visit 25 minutes Jignesh Gonsalez MD Work Phone: [facility] Comment on above: Benign essential hyp ertension (Primary Dx); Chronic obstructive pulmonary disease, unspecified COPD type (HCC); Chronic hypoxic respiratory failure (HCC); Major depressive disorder, recurrent episode, mild ; Degenerative lumbar spinal stenosis; Bilateral leg edema; Deviated nasal septum; Hiatal hernia with GERD without esophagitis; Neuropathy due to chemotherapeutic drug (HCC) Start: 05-23-2025 End: 05-23-2025 ambulatory JIGNESH GONSALEZ Not Available Start: 05-15-2025 End: 05-15-[address] [facility] Start: 05-13-2025 End: 05-14-2025 Refill Jignesh Gonsalez MD Work Phone: [facility] Comment on above: Dizziness; Dyslipidemia Start: 05-12-2025 End: 05-12-2025 Patient encounter procedure Sandy Sarabia [employer] [facility] [place] Work Phone: Start: 04-26-2025 End: 04-26-2025 Office outpatient visit 25 minutes Jignesh Gonsalez MD Work Phone: [facility] Comment on above: Chronic obstructive pulmonary disease, unspecified COPD type (CMS/HCC) (Primary Dx); Chronic hypoxic respiratory failure (CMS/HCC); Dysphagia, unspecified type Start: 04-26-2025 End: 04-26-2025 ambulatory JIGNESH GONSALEZ Not Available Start: 04-25-2025 End: 04-25-2025 Bamboo flowsheet Chari Means [place] CCC-A Work Phone: [facility] Start: 04-25-2025 End: 04-25-2025 Bamboo flowsheet Chari Clary [place] CCC-A Work Phone: [facility] Start: 04-25-2025 End: 04-25-2025 Clinical Support Chari Clary [place] CCC-A Work Phone: [facility] Comment on above: Sensorineural hearin g loss, bilateral (Primary Dx) Start: 04-02-2025 End: 04-02-2025 Office outpatient visit [...] stenosis Start: 01-22-2025 End: 01-22-2025 ambulatory E[facility] Start: 01-21-2025 End: 01-21-2025 Bamboo flowsheet Jignesh Gonsalez MD Work Phone: [facility] Start: 01-21-2025 End: 01-21-2025 Bamboo flowsheet Jignesh Gonsalez MD Work Phone: [facility] Start: 01-21-2025 End: 01-21-2025 Office outpatient visit 15 minutes Jignesh Gonsalez MD Work Phone: [facility] Comment on above: 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) (Primary Dx); SOB (shortness of breath) on exertion Start: 01-21-2025 End: 01-21-2025 ambulatory JIGNESH GONSALEZ Not Available Start: 01-12-2025 Evaluation and manag ement of inpatient [facility] Start: 01-11-2025 Evaluation and manag ement of inpatient [facility] Start: 01-11-2025 Evaluation and manag ement of inpatient [facility] Start: 01-11-2025 End: 01-13-2025 Evaluation and management of inpatient [facility] Start: 12-19-2024 End: 12-19-2024 Bamboo flowsheet Amrik [...] 11-28-2024 Refill Jignesh Gonsalez MD Work Phone: [facility] Comment on above: Seizure disorder (CM S/HCC) Start: 11-27-2024 End: 11-28-2024 Orders Only Jignesh Gonsalez MD Work Phone: [facility] Comment on above: Deviated nasal septu m (Primary Dx); Chronic rhinosinusitis Start: 11-27-2024 End: 11-27-2024 Patient encounter procedure Jose M Celestine HUDSON Work Phone: [facility] Comment on above: Screening for malign ant neoplasm of colon (Primary Dx) Start: 11-22-2024 End: 11-22-2024 Postop follow up visit related to original px Jignesh Gonsalez MD Work Phone: [facility] Comment on above: Medicare annual well ness [...] flowsheet Jignesh Gonsalez MD Work Phone: [facility] Start: 11-22-2024 End: 11-22-2024 Bamboo flowsheet Jignesh Gonsalez MD Work Phone: [facility] Start: 11-22-2024 End: 11-22-2024 Patient encounter procedure Jignesh Gonsalez MD Work Phone: [facility] Work Phone: Start: 11-15-2024 End: 11-15-2024 Refill Jignesh Gonsalez MD Work Phone: [facility] Comment on above: Degenerative lumbar spinal stenosis Start: 11-06-2024 End: 11-06-2024 Telephone encounter Imelda ALANIS Work Phone: [facility] Start: 10-30-2024 End: 10-30-2024 Clinical Support Chari Clary Dane CCC-A Work Phone: [facility] Comment on above: Sensorineural hearin g loss, bilateral (Primary Dx) Start: 10-30-2024 End: 10-30-2024 Bamboo flowsheet Chari Means [place] CCC-A Work Phone: [facility] Start: 10-30-2024 End: 10-30-2024 Bamboo flowsheet Chari Clary [place] CCC-A Work Phone: [facility] Start: 10-25-2024 End: 10-25-2024 Office outpatient [...] End: 10-17-2024 ambulatory Yancy Lawson Facility:[facility] Start: 10-11-2024 End: 10-11-2024 Refill Jignesh Gonsalez MD Work Phone: [facility] Comment on above: Degenerative lumbar spinal stenosis Start: 09-25-2024 End: 09-25-2024 Refill Jignesh Gonsalez MD Work Phone: [facility] Comment on above: Seizure disorder (CM S/HCC) Start: 09-07-2024 End: 09-07-2024 ambulatory MD Jignesh Gonsalez Work Phone: [facility] Work Phone: Start: 09-07-2024 End: 09-07-2024 Patient encounter procedure MD Jignesh Gonsalez Work Phone: [facility] [place] Work Phone: Start: 08-16-2024 End: 08-16-2024 ambulatory [facility] Work Phone: Start: 08-16-2024 End: 08-16-2024 Patient encounter procedure [facility] [place] Work Phone: Start: 08-09-2024 End: 08-09-2024 ambulatory MD Jignesh Gonsalez Work Phone: [facility] Work Phone: Start: 08-09-2024 End: 08-09-2024 Patient encounter procedure MD Jignesh Gonsalez Work Phone: [facility] [place] Work Phone: Start: 08-08-2024 ambulatory [facility] Start: 07-26-2024 End: 07-26-2024 ambulatory [facility] Start: 07-18-2024 End: 07-18-2024 Refill Jignesh Gonsalez MD Work Phone: [facility] Comment on above: Seizure disorder (CM S/HCC) Start: 06-13-2024 End: 06-13-2024 ambulatory IMELDA THOMPSON Not Available Start: 05-15-2024 End: 05-15-2024 ambulatory MD Jignesh Gonsalez Work Phone: [facility] Work Phone: Start: 05-15-2024 End: 05-15-2024 Patient encounter procedure MD Jignesh Gonsalez Work Phone: [facility] [place] Work Phone: Start: 04-23-2024 End: 04-23-2024 ambulatory [facility] Work Phone: Start: 04-23-2024 End: 04-23-2024 Patient encounter procedure [facility] [place] Work Phone: Start: 12-30-2023 ambulatory Chris CAMARILLO Facili ty:[facility] Start: 12-21-2023 Telephone encounter Epifanio dennison MD Work Phone: [facility] Start: 12-20-2023 ambulatory [facility] Start: 07-18-2023 End: 07-19-2023 ambulatory JIGNESH GONSALEZ Facility:[facility] Start: 07-18-2023 End: 07-18-2023 Patient encounter procedure Chris CAMARILLO [facility] Start: 07-05-2023 Office outpatient ne w 30 minutes Luiz Riggs [facility] Start: 07-05-2023 End: 07-05-2023 ambulatory MD Jignesh Gonsalez Work Phone: [facility] Work Phone: Start: 07-05-2023 End: 07-05-2023 Patient encounter procedure MD Jignesh Gonsalez Work Phone: [facility] Work Phone: Start: 01-07-2023 End: [...] 04-06-2022 End: 04-06-2022 ambulatory Neelam Morris Other [employer] Other Start: 04-06-2022 Office outpatient vi sit 15 minutes Neelam Morris [facility] [place] Start: 12-28-2021 End: 12-28-2021 ambulatory Alex Bonilla Other [employer] Other Start: 12-28-2021 Office outpatient ne w 30 minutes Alex Bonilla [facility] Start: 11-20-2020 End: 11-20-2020 Emergency department patient visit KARINA JAY Facility:[facility] Procedures Date Procedure Procedure Detail Performing [...] Data Provider Start: 03-07-2025 ECG 12-LEAD Mariana Yair PA Work Phone: Start: 02-22-2025 RT PULMONARY FUNCTION [...] above: Performed By: #### P [facility] #### [facility] [address] [place] [address] Dr. Jeimy Tenorio Extraction of cataract Patri ck CAMARILLO Procedure on foot Chris WA TERS Plan of Treatment Date Care Activity Detail Author Start: 12-11-2034 Screening for malign ant neoplasm of colon [facility] Start: 11-22-2025 Medicare Annual Well ness (AWV) Medicare Annual Wellness (AWV) [facility] Start: 08-28-2025 End: 08-28-2025 Patient encounter procedure 08/28/2025 1:00 PM EDT Office Visit [facility] [address] [place] [address] Jingesh Gonsalez MD [address] [place] [address] [facility] Start: 07-22-2025 Influenza vaccination Influenza Vacc ine (#1) [facility] Start: 05-23-2025 End: 05-23-2025 Patient encounter procedure [facility] Comment on above: Arrived Start: 04-26-2025 End: 04-26-2026 RF Upper gastrointestinal tract and Small bowel Single view W contrast PO FL upper GI double contrast w KUB Imaging Routine Dysphagia, unspecified type Expected: 04/26/2025, Expires: 04/26/2026 [facility] Work Phone: Comment on above: Expected: 04/26/2025 , Expires: 04/26/2026 Start: 04-26-2025 End: 04-26-2025 Patient encounter procedure 04/26/2025 11:45 AM EDT Office Visit [facility] [address] [place] [address] Jignesh Gonsalez MD [address] [place] [phone] [facility] Start: 04-02-2025 End: 04-02-2025 Patient encounter procedure [facility] Comment on above: Arrived Start: 02-20-2025 End: 02-20-2025 Patient encounter procedure [facility] Comment on above: Arrived Start: 01-21-2025 End: 01-21-2025 Patient encounter procedure 01/21/2025 1:45 PM EST Office Visit [facility] [address] [place] [address] Jignesh Gonsalez MD [address] [place] [phone] Arrived [facility] Comment on above: Arrived Start: 12-19-2024 End: 12-19-2024 Patient encounter procedure 12/19/2024 1:40 PM EST Office Visit [facility] [address] [place] [id number] Amrik Pérez MD [address] [place] [id number] Deviated nasal septum; Chronic rhinosinusitis [facility] Comment on above: Deviated nasal septu m; Chronic rhinosinusitis Start: 11-26-2024 End: 11-26-2024 Patient encounter procedure 11/26/2024 2:00 PM EST Office Visit [facility] [address] [place] [address] Jose M Rea DO [address] [place] [address] [facility] Start: 11-22-2024 End: 11-22-2024 Patient encounter procedure [facility] Comment on above: Arrived Start: 11-22-2024 End: 11-22-2025 Basic metabolic 1998 panel - Serum or Plasma Basic metabolic panel Lab Routine Encounter for long-term current use of medication Expected: 11/22/2024 (Approximate), Expires: 11/22/2025 [facility] Work Phone: Comment on above: Expected: 11/22/2024 (Approximate), Expires: 11/22/2025 Start: 11-22-2024 End: 11-22-2025 CBC W Auto Differential panel - Blood CBC and differential Lab Routine Encounter for long-term current use of medication Expected: 11/22/2024 (Approximate), Expires: 11/22/2025 [facility] Comment on above: Expected: 11/22/2024 (Approximate), Expires: 11/22/2025 Start: 11-22-2024 End: 11-22-2025 Hepatic function 2000 panel - Serum or Plasma Hepatic function panel Lab Routine Encounter for long-term current use of medication Expected: 11/22/2024 (Approximate), Expires: 11/22/2025 [facility] Comment on above: Expected: 11/22/2024 (Approximate), Expires: 11/22/2025 Start: 11-22-2024 End: 11-22-2025 Lipid 1996 panel - Serum or Plasma Lipid panel Lab Routine Dyslipidemia ([facility]) Expected: 11/22/2024 (Approximate), Expires: 11/22/2025 [facility] Comment on above: Expected: 11/22/2024 (Approximate), Expires: 11/22/2025 Start: 11-22-2024 End: 11-22-2025 Prostate specific Ag [Mass/volume] in Serum or Plasma PSA Lab Routine Screening PSA (prostate specific antigen) Expected: 11/22/2024 (Approximate), Expires: 11/22/2025 [facility] Comment on above: Expected: 11/22/2024 (Approximate), Expires: 11/22/2025 Start: 11-22-2024 End: 11-22-2025 Thyrotropin [Units/volume] in Serum or Plasma TSH Lab Routine Class 3 severe obesity due to excess calories with serious comorbidity and body mass index (BMI) of 40.0 to 44.9 in adult ([facility]) Expected: 11/22/2024 (Approximate), Expires: 11/22/2025 [facility] Comment on above: Expected: 11/22/2024 (Approximate), Expires: 11/22/2025 Start: 10-25-2024 End: 10-25-2024 Patient encounter procedure [facility] Comment on above: Arrived Start: 10-25-2024 End: 10-25-2025 CT Maxillofacial region WO and W contrast IV CT SINUS WO IV CONTRAST Imaging Routine Chronic rhinosinusitis Expected: 10/25/2024, Expires: 10/25/2025 [facility] Work Phone: Comment on above: Expected: 10/25/2024 , Expires: 10/25/2025 Start: 09-27-2024 End: 09-27-2024 Patient encounter procedure 09/27/2024 3:30 PM EST Office Visit [facility] [address] [place] [phone] Jignesh Gonsalez MD [address] [place] [phone] [facility] Start: 07-22-2024 Influenza vaccination Influenza Vacc ine (#1) [facility] Start: 12-30-2023 COVID-19 Vaccine ( season) COVID-19 Vaccine ( season) [facility] Start: 08-16-2023 Adult BMI Screening Adult BMI Screen ing [facility] Start: 08-16-2023 Fall Risk Screening Fall Risk Screen ing [facility] Start: 08-16-2023 Tobacco Screening Tobacco Screening [facility] Start: 08-05-2021 Pneumococcal Vaccine : 65+ Years (2 of 2 - PCV) Pneumococcal Vaccine: 65+ Years (2 of 2 - PCV) [facility] Start: 1974 Administration of varicella zoster vaccine Zoster (Shingles) Vaccine (1 of 2) [facility] Start: 1974 DTaP,Tdap and Td Vac cines (1 - Tdap) DTaP,Tdap and Td Vaccines (1 - Tdap) [facility] Start: 1967 Depression Screening Depression Scre ening [facility] Start: 1955 Medicare Annual Well ness (AWV) Medicare Annual Wellness (AWV) [facility] Start: 1955 Medicare Annual Well ness Visit Medicare Annual Wellness Visit [facility] Start: 1955 Screening for malign ant neoplasm of colon [facility] LOWER RESPIRATORY CULTURE LOWER RESPIRATORY CULTURE Lab Routine 03/08/2025 8:00 AM EDT [facility] MR Knee - right WO contrast MR knee right wo IV contrast Imaging Routine Chronic pain of right knee Internal derangement of right knee Ordered: 10/25/2024 [facility] Comment on above: Ordered: 10/25/2024 Pulmonary function report Pulmon marjorie Function Test Imaging Routine SOB (shortness of breath) on exertion Ordered: 01/21/2025 [facility] Work Phone: Comment on above: Ordered: 01/21/2025 XR Knee - right 4 Views [facility] Immunizations Immunization Date Immunization Notes Care Provider Fa cility 10-11-2024 influenza virus vacc ine, unspecified formulation Jignesh Gonsalez MD Work Phone: [facility] 11-04-2023 Covid-19, Mrna, Lnp- s, Bivalent, Pf, 30mcg/0.3 ml Epifanio Kaufman MD Work Phone: [facility] 11-04-2023 Influenza, Seasonal, Quadrivalent, Adjuvanted Jignesh Gonsalez MD Work Phone: [facility] 11-04-2023 influenza virus vacc ine, unspecified formulation Jignesh Gonsalez MD Work Phone: [facility] 08-21-2022 influenza virus vacc ine, unspecified formulation Epifanio Kaufman MD Work Phone: [facility] 08-21-2022 Influenza, High-dose Seasonal, Quadrivalent, Preservative Free Jignesh Gonsalez MD Work Phone: [facility] 08-21-2022 SARS-COV-2 (COVID-19 ) Vaccine, Unspecified Epifanio Kaufman MD Work Phone: [facility] 08-06-2021 Influenza Vaccine, Quadrivalent, Adjuvanted Jignesh Gonsalez MD Work Phone: [facility] 02-25-2021 COVID-19, mRNA, LNP- S, PF, 100mcg/0.5mL Dose Jignesh Gonsalez MD Work Phone: [facility] 02-12-2021 COVID-19, mRNA, LNP- S, PF, 30mcg/0.3mL Dose Epifanio Kaufman MD Work Phone: [facility] 08-05-2020 influenza, injectabl e, quadrivalent, preservative free Jignesh Gonsalez MD Work Phone: [facility] 08-05-2020 pneumococcal polysaccharide vaccine, 23 valent Jignesh Gonsalez MD Work Phone: [facility] 09-03-2019 influenza, seasonal, injectable Jignesh Gonsalez MD Work Phone: [facility] 08-24-2019 influenza, injectabl e, quadrivalent, preservative free Jignesh Gonsalez MD Work Phone: [facility] Healthcare Payers Date Payer Category Payer Self-pay [id number] 2023 Medicaid [id number] 2023 Medicaid [id number] 2022 Medicare [id number] 2021 Medicare [id number] 2021 Unknown [id number] 2021 Medicare [id number] 2020 Medicare [id number] 2019 Unknown [id number] 1959 Medicare [id number] 2. [id number] 1955 Unknown [id number] 2.16.8 40.1.523487.3.579.2.647 1955 Unknown [id number] 2.16.84 0.1.862260.3.579.2.593 1955 Unknown [id number] 2.16.84 0.1.558549.3.579.2.593 1955 Unknown [id number] 2.16.84 0.1.132240.3.579.2.593 1955 Unknown [id number] 2.16.84 0.1.132646.3.579.2.593 1955 Unknown [id number] 2.16.84 0.1.961731.3.579.2.593 1955 Unknown [id number] 2.16.84 0.1.429658.3.579.2.593 1955 Unknown [id number] 2.16.84 0.1.159598.3.579.2.593 Unknown [id number] 2.16.8 40.1.198004.3.579.2.1286 1955 Unknown [id number] 2.16.8 40.1.438480.3.579.2.727 1955 Unknown [id number] 2.16.8 40.1.962667.3.579.2.727 1955 Unknown [id number] 2.16. 840.1.157564.3.579.2.1286 1955 Unknown [id number] 2.16.8 40.1.964998.3.579.2.1259 1955 Unknown [id number] 2.16.8 40.1.775030.3.579.2.1259 1955 Unknown [id number] 2.16.8 40.1.171350.3.579.2.1259 1955 Unknown [id number] 2.16.84 0.1.662200.3.579.2.1259 1955 Unknown [id number] 2.16.84 0.1.795338.3.579.2.1259 1955 Unknown [id number] 2.16.84 0.1.082745.3.579.2.1259 1955 Unknown [id number] 2.16.84 0.1.950923.3.579.2.1259 1955 Unknown [id number] 2.16.84 0.1.828230.3.579.2.1259 1955 Unknown [id number] 2.16.84 0.1.470851.3.579.2.1259 1955 Unknown [id number] 2.16.84 0.1.587140.3.579.2.1259 1955 Unknown [id number] 2.16.84 0.1.740217.3.579.2.1259 1955 Unknown [id number] 2.16.84 0.1.277338.3.579.2.1259 1955 Unknown [id number] 2.16.84 0.1.773584.3.579.2.1259 1955 Unknown [id number] 2.16.84 0.1.677285.3.579.2.1259 Medicare [id number] Unknown [id number] 2.16.8 40.1.936414.3.579.2.531 Unknown [id number] 2.16.8 40.1.620572.3.579.2.531 Unknown [id number] 2.16.8 40.1.538466.3.579.2.531 Social History Date Type Detail Facility Start: 12-14-2023 End: 01-15-2025 [facility]igned At [facility] Start: 1955 Sex Assigned At Male [facility] Tobacco smoking status No Smoking Status Entered [facility] Start: 04-23-2024 End: 05-26-2025 Tobacco smoking status [facility] Never smoked tobacco (finding) [facility] Start: 01-11-2024 End: 12-19-2024 Tobacco smoking status MSIS Ex-smoker [facility] Start: 11-21-1971 End: 04-18-1997 History of tobacco use Current smoker [facility] Start: 11-21-1971 End: 04-18-1997 History of tobacco use Cigarette Smoker [facility] Start: 01-11-2024 End: 12-19-2024 Tobacco use and exposure Smokeless tobacco non-user [facility] Start: 05-21-2024 End: 05-23-2025 Alcoholic beverage intake Lifetime non-drinker (finding) [facility] [...] Start: 08-16-2022 Alcohol intake Ex-drinker (finding) [facility] Sex Male (finding) [facility] NEGATED: Highlighted rowStart: NINF History of tobacco use Passive smoker [facility] Clinical Notes 11-21-2020 to 05-23-2025 Jignesh Gonsalez MD - 05/23/2025 2:35 PM EDAimee Gonsalez MD - 05/23/2025 2:35 PM Long Gonsalez MD - 05/23/2025 2:35 PM EDAimee Gonsalez MD - 05/23/2025 2:35 PM EDT Note Date & Type Note Facility 05-23-2025 History of Presen t illness Narrative Associated Problem(s): Neuropathy due to chemotherapeutic drug (HCC) Continued symptoms but tolerable with neurontin and continue. Associated Problem(s): Major depressive disorder, recurrent episode, mild Symptoms stable and continue celexa. Associated Problem(s): Hiatal hernia with GERD without esophagitis UGI with reflux and start omeprazole. Associated Problem(s): Deviated nasal septum Refer to new ENT. Associated Problem(s): Degenerative lumbar spinal stenosis Pain stable and use norco PRN. Use robaxin for spasms. Continue PT exercises. Associated Problem(s): COPD (chronic obstructive pulmonary disease) (HCC) Symptoms stable and use inhalers daily. Follow with pulmonology. Associated Problem(s): Chronic hypoxic respiratory failure (HCC) Script signed for portable concentrator. Associated Problem(s): Bilateral leg edema Edema stable and continue medication. Elevate legs PRN. Associated Problem(s): Benign essential hypertension BP controlled and monitor PRN. Images from [...] This Visit Neuropathy due to chemotherapeutic drug (HCC) Continued [...] legs PRN. COPD (chronic obstructive pulmonary disease) ([facility]) Symptoms stable and use inhalers daily. Follow with pulmonology. Relevant Medications Fluticasone-Salmeterol (Advair Diskus) 500-50 MCG/ACT aerosol powder Benign essential hypertension - Primary BP controlled and monitor PRN. Chronic hypoxic respiratory failure (HCC) Script signed for portable concentrator. Hiatal hernia with GERD without esophagitis UGI with reflux and start omeprazole. Relevant Medications omeprazole (PriLOSEC) [address] capsule documented in this encounter [facility] 05-12-2025 Evaluation note Diagnosis Onset Date Resolution Cerumen impaction acute May 122024 11:50am Left otitis externa noneactive May 26, 2025 11:51am [facility] Work Phone: [phone]) 239-181006-06-2025 History of Present illness Narrative* Jignesh Gonsalez MD - 04/26/2025 12:38 PM EDTAssociated Problem(s): Dysphagia Problems swallowing and check UGI. * Jignesh Gonsalez MD - 04/26/2025 12:38 PM EDTAssociated Problem(s): COPD (chronic obstructive pulmonary disease) (CMS/HCC) Symptoms improved after treatment and monitor. Use inhalers daily. Follow with pulmonology. Will arrange for home hospital bed in order to elevate head while sleeping due to SOB. * Jignesh Gonsalez MD - 04/26/2025 12:37 PM EDTAssociated Problem(s): Chronic hypoxic respiratory failure (CMS/HCC) Wean oxygen as tolerated. * Jignesh Gonsalez MD - 04/26/2025 11:45 AM EDT Images from the original note were not included. Subjective Patient ID: Nathan Cortes is a 70 y.o. male who presents for Follow-up ([facility] er f/up copd). ER follow up from 04/14 for COPD exacerbation. Recently with worsening SOB and 4 ER visits in past several weeks. Admitted twice for COPD exacerbation. Last time given zithromax and prednisone. Seen by pulmonology 04/22 and added advair in addition to Incruse. SOB improved and less SOB with exertion. Remains on oxygen. Requests hospital bed to help elevate head at night. Develops worsening SOB if laying flat. C/o dysphagia over past few weeks. Often when swallowing feels like things go down wrong and start to cough. Notice with liquids and solids. Occasionally feels like something stuck in throat. Review of Systems Constitutional: Negative for fatigue. [...] elevate head while sleeping due to SOB. Chronic hypoxic respiratory failure (CMS/HCC) Wean oxygen as tolerated. Dysphagia Problems swallowing and check UGI. Relevant Orders FL upper GI double contrast w KUB documented in this encounterSalem Memorial District [id number] History of Present illness Narrative* MASHA Ferrari - 04/25/2025 9:00 AM EDT Pt picked up supplies documented in this encounterSalem Memorial District [id number] History of Present illness Narrative* Jignesh Gonsalez MD - 04/02/2025 3:15 PM EDT Images from the original note were not included. Subjective Patient ID: Nathan Cortes is a 70 y.o. male who presents for Follow-up ([facility] hospital f/u). Hospital follow up from 03/24-03/27 for COPD exacerbation. Recently admitted 03/07- 03/11 with pneumonia and treated. Discharged on oxygen. Developed worsening SOB and hypoxia. Returned to ER and found COPDexacerbation. On steroids and antibiotics. Improved in hospital [...] This Visit COPD (chronic obstructive pulmonary disease) ([facility]/HCC) - Primary Symptoms improved after treatment and monitor. Use inhalers daily and albuterol PRN. Chronic hypoxic respiratory failure (CMS/HCC) Wean oxygen as tolerated. * Jignesh Gonsalez MD - 04/02/2025 12:37 PM EDTAssociated Problem(s): COPD (chronic obstructive pulmonary disease) (CMS/HCC) Symptoms improved after treatment and monitor. Use inhalers daily and albuterol PRN. * Jignesh Gonsalez MD - 04/02/2025 12:37 PM EDTAssociated Problem(s): Chronic hypoxic respiratory failure (CMS/HCC) Wean oxygen as tolerated. documented in this [facility]05-08-2025 Telephone encounter Note* Telephone Encounter - Jignesh Gonsalez MD - 03/28/2025 3:25 PM EDT Sent [facility] [id number] Miscellaneous Notes* Telephone Encounter - Jignesh Gonsalez MD - 03/28/2025 3:25 PM EDT Sent * Telephone Encounter - DARCY THOMPSON - 03/28/2025 2:42 PM EDT Insurance called states that they will not cover spirva, but they will cover incruse ellipta. clm documented in this [facility]05-08-2025 Telephone encounter Note* Telephone Encounter - DARCY THOMPSON - 03/28/2025 2:42 PM EDT Insurance called states that they will not cover spirva, but they will cover incruse ellipta. clm [facility] [id number] Note Gram Stain Evaluation This specimen is of good quality and is acceptable for routine [facility] [id number] NoteGRAM STAIN EVALUATIONbacterial culture.TBHNCox MonettZvbooawjxy71-18-1205 History of Present illness Narrative* Jignesh Gonsalez MD - 02/20/2025 2:16 PM EDTAssociated Problem(s): SOB (shortness of breath) on exertion Signs of COPD and check PFTs. Use albuterol PRN. * Jignesh Gonsalez MD - 02/20/2025 2:16 PM EDTAssociated Problem(s): 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) Continued symptoms but tolerable with neurontin and continue. * Jignesh Gonsalez MD - 02/20/2025 2:16 PM EDTAssociated Problem(s): Major depressive disorder, recurrent episode, mild (HCC) (CMS/HCC) Symptoms stable and continue celexa. * Jignesh Gonsalez MD - 02/20/2025 2:16 PM EDTAssociated Problem(s): Degenerative lumbar spinal stenosis Pain stable and use norco PRN. Use robaxin for spasms. Continue PT exercises. * Jignesh Gonsalez MD - 02/20/2025 2:16 PM EDTAssociated Problem(s): Bilateral leg edema Edema worse and add aldactone. Stop potassium and continue lasix. Elevate legs PRN. * Jignesh Gonsalez MD - 02/20/2025 2:15 PM EDTAssociated Problem(s): Benign essential hypertension (CMS/HCC) BP controlled and monitor PRN. * Jignesh Gonsalez MD - 02/20/2025 1:30 PM EDT Images from the original note [...] Still not want to be around others orleave house. Overall feels like symptoms tolerable and dealing well. Back pain unchanged. Pain in low back and across top hips. Occasional radiation into gluteal region and down legs. Pain increased with walking and standing. Neuropathy unchanged. Continued pain and burning in feet. Feet numb and unsteady when up and moving. Using neurontin and helps with symptoms. Edema worse. Increased swellingin feet and lower legs. Taking lasix but not helping. Edema worse after on feet prolonged and end of day. Improved with elevation and in am. SOB unchanged and albuterol helps. PFTs scheduled for nextweek. Review of Systems Constitutional: Negative for fatigue. [...] controlled and monitor PRN. documented in this encounterSalem Memorial District [id number] [facility]BAD[facility] Note Chief Complaint: Patient here for follow up [facility]. Underwent heart cath on 01/11/2025 with [...] needed each day., Disp: , Rfl: HYDROcodone-acetaminophen ([place]) 5-325 mg tablet, take 1 tablet by [...] or chew., Disp: 30 tablet, Rfl: 0 oscveavvdghs-wlbz-eapueuye-folic acid (Multivitamin 50 Plus) tablet, 1 (one) [...] PSYCH: appropriate mood, affect, and judgement. INVESTIGATIONS: Echocardiogram-[facility] Name: NAZARIO CORTES Study Date: 01/11/2025 10:06 AM B/P: 142 mmHg/84 mmHg HR: Date of : 1955 Location: [facility] Height: 74 in. Age: 69 year(s) Patient Room : 3140 Weight: (more content not included)...[facility] 01-21-2025 History of Present illness Narrative* Jignesh Gonsalez MD - 01/21/2025 2:20 PM ESTAssociated Problem(s): SOB (shortness of breath) on exertion Signs of COPD and check PFTs. Start albuterol PRN. * Jignesh Gonsalez MD - 01/21/2025 2:20 PM ESTAssociated Problem(s): Coronary artery disease involving skokomish coronary artery of skokomish heart without angina pectoris (CMS/HCC) Symptoms improved with medication change and follow with cardiology. * Jignesh Gonsalez MD - 01/21/2025 1:45 PM EST Images from the original note were not included. Subjective Patient ID: Nathan Cortes is a 69 y.o. male who presents for Follow-up (Hospital f/up [place]). Hospital follow up from 01/09-01/13 for unstable angina. Developed chest pain and to ER. CE normal and echo normal. Continued to have pain and seen by cardiology. Concerned of unstable angina and transferred to [facility] 01/10. Heart cath performed and showed [...] Addressed This Visit Coronary artery disease involving skokomish coronary artery of skokomish heart without angina pectoris (CMS/HCC) - Primary Symptoms improved with medication change and follow with cardiology. SOB (shortness of breath) on exertion Signs of COPD and check PFTs. Start albuterol PRN. Relevant Medications albuterol HFA 90 mcg/act inhaler Other Relevant Orders Pulmonary Function Test documented in this encounterSalem Memorial District [id number] NoteSent the AVS to [facility]02-23-2025 NotePhysical Therapy Physical Therapy Evaluation Patient Name: Nazario [...] year old male present as transfer from [facility] for chest pain. 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) History of colonic polyps History of falling Hx of malignant neoplasm Hyperlipidemia Internal derangement of right knee Lumbar degenerative disc disease Major depressive disorder, recurrent episode, mild Malignant neoplasm of urinary bladder (CMS/HCC) Neuropathy due to chemotherapeutic drug Obesity Seizure disorder ([facility]/HCC) Bilateral leg edema Chest pain due to CAD Chronic depression Dupuytren contracture Gall bladder disease Impacted cerumen of both ears Arthritis Inflammation of both sacroiliac joints Left elbow pain Lumbar spondylosis KAROL (obstructive sleep apnea) Polyneuropathy due to other toxic agents Rheumatic fever Transient ischemic attack (TIA) Unstable angina ([facility]/HCC) Past Medical History: Diagnosis Date Bladder cancer ([facility]/HCC) around 1997 Cholelithiasis Colon polyp Depression Dyslipidemia [...] Level of Function Prior Function Level of Young: Independent with ADLs and functional transfers, Independent [...] 1: Independent Bed Mobilit (more content not included)...[facility] 01-13-2025 [facility]02-23-2025 NoteHospital Medicine Discharge Summary Final Discharge Diagnosis: Unstable angina KAROL History of seizures Hyperlipidemia Falls at home Obese class 2 - BMI 40 Admission Diagnosis: Unstable angina (CMS/[facility]) [I20.0] Hospital course: Nazario Cortes is an 69 y.o. male who came from [facility] with Angina pectoris unstable. Patient is a 69-year-old male with the following past medical history CAD, HLD, depression, history of seizures, obstructive sleep apnea, obesity, history of bladder cancer diagnosed 2018 with tumor removal. Patient was transferred from [facility] where he has been admitted on being managed for chest pain. He was seen by cardiology and after consultation patient was transferred to [facility] for cardiac catheterization tomorrow. He states [...] consulted. WE will arrange home health through [facility]. Surgical, Invasive or Diagnostic Procedures Done [...] left radial artery was obtained. A 6 Romanian glide sheath was inserted without difficulty. Bilateral [...] as: Toprol-XL Take 1 (more content not included)...[facility] 01-12-2025 Note Attestation signed by Jony [...] to the follow-up visit Jony Webber MD, [facility] Cardiology Progress Note Subjective Subjective: Patient [...] Value Ventricular Rate 70 Atrial Rate 70 [place] Interval 210 QRS DURATION 78 QT Interval 410 QTC CALCULATION(BAZETT) 442 P Niagara 35 R-Niagara -9 T Wave Niagara 36 Impression Sinus rhythm with 1st degree A-V block Otherwise normal ECG When compared with ECG of 20-NOV-2020 10:48, OH interval has increased Confirmed by Thomas YOUNGER, MILAGROS Garcia ([id number]) on 01/11/2025 1:02:38 PM Lab Results Component Value Date TROPONINI 0.01 01/11/2025 Transthoracic echo (TTE) complete Result Date: 01/11/2025 1 1 [facility] Heart Station [address] [place] [address] [phone] (fax) Echocardiogram-[facility] Name: NAZARIO CORTES Study Date: 01/11/2025 10:06 AM B/P: 142 mmHg/84 mmHg HR: Date of : 1955 Location: [facility] Height: 74 in. Age: 69 year(s) Patient Room: [facility] Weight: 306 lb. Gender: Male Patient Status: [...] PGmax 3 mmHg L (more content not included)...[facility]02-22-2025 [facility]In[facility] Daily Progress Note - 01/12/2025 11:29 AM; Room: [facility]/3140- Admission: 01/11/2025 12:29 AM; Length of stay: 1 days THE HOSPITALIST TEAM PREFERS TO USE [employer] FOR NON-URGENT COMMUNICATION 7AM-7PM. IF I DO NOT RESPOND WITHIN 20 MINUTES OR URGENT MATTERS, PLEASE CALL THROUGH THE READING TEACHER. FROM 7PM-7AM, PLEASE PAGE [phone](COVR). Code Status: Full Code Barriers to Discharge: chest pain Expected Discharge Date: tomorrow? Discharge Destination: home Overview Nazario Cortes is an 69 y.o. male who came from [facility] with Angina pectoris unstable. Patient is a 69-year-old male with the following past medical history CAD, HLD, depression, history of seizures, obstructive sleep apnea, obesity, history of bladder cancer diagnosed 2018 with tumor removal. Patient was transferred from [facility] where he has been admitted on being managed for chest pain. He was seen by cardiology and after consultation patient was transferred to [facility] for cardiac catheterization tomorrow. He states [...] Active Inpatient Problems Principal Problem: Unstable angina (CMS/[facility]) Active Problems: Coronary arteriosclerosis Dyslipidemia Malignant neoplasm of urinary bladder (CMS/HCC) Seizure disorder ([facility]) Lumbar spondylosis Assessment and Plan Unstable angina [...] LDL 97 01/12/2025 No results found for: NTMPUTYG20 , IRON , TIBC , C3 , [...] spine. Fibrosis and sc (more content not included)...[facility]02-21-2025 Notecommunication received that Patient is reporting having multiple falls at home and is reporting spouse has a nurse Enedelia from [facility], so would like [facility] if needing HHC services. Preliminary referral sent to Sarah, via [employer].[facility]02-21-2025 Note01/11/25 1606 Admission Assessment Questions Verify insurance with [...] Status Interested Does the patient have a patient case coordinator assigned to them through their insurance? No Living Arrangement (Current/Prior to Hospitalization) Private residence (lives at home with ) Does the patient have history of HHC or SNF? Yes (hx of HHC not active, when patient use to live in [place], patient stated his kadi has sarah (nurses [...] you able to send link and activate [employer]? MyChart already active [facility]02-21-2025 Note-Patient pain control. -Patient's hydrocodone 5/325 as needed -Continue other home medications per reconciliation Maintain DVT prophylaxis DVT protocols GI protection Protonix Monitor labs and correct abnormalities Discussed the plan of care with patient's nurse and with the patient himself and he is in agreement.[facility]02-21-2025 Note-Continue statins.[facility]02-21-2025 Note-Treat with statins -Manage also with nitrates -Aspirin -Consult cardiology and prep for heart cath later on today.[facility]02-21-2025 Note-Seizures currently stable resume and reconcile home anticonvulsantsUnAden[facility]02-21-2025 Note-Chronic problem we will continue to monitorUnAdena [facility]ayette [facility] Center02-21-2025 Note-Use nitroglycerin and nitrates -N.p.o. after midnight -Will need to proceed to have cath tomorrow -Consult cardiology.[facility]02-21-2025 NoteHospital Medicine History and Physical 01/11/2025 1:38 AM THE HOSPITALIST TEAM PREFERS TO USE [employer] FOR NON-URGENT COMMUNICATION 7AM-7PM. IF I DO NOT RESPOND WITHIN 20 MINUTES OR URGENT MATTERS, PLEASE CALL THROUGH THE READING TEACHER. FROM 7PM-7AM, PLEASE PAGE [phone](COVR). Chief Complaint No chief complaint on file. History of Present Illness Nazario Cortes is an 69 y.o. male who came from [facility] with Angina pectoris unstable. Patient is a 69-year-old male with the following past medical history CAD, HLD, depression, history of seizures, obstructive sleep apnea, obesity, history of bladder cancer diagnosed 2018 with tumor removal. Patient was transferred from [facility] where he has been admitted on being managed for chest pain. He was seen by cardiology and after consultation patient was transferred to [facility] for cardiac catheterization tomorrow. He states [...] current laboratory findings are available here at [facility]. Review of System and Physical Exam [...] sleep apnea comes seen on transfer from [facility] with unstable angina. Patient is being prepped for cardiac catheterization tomorrow by cardiology. Assessment & Plan Unstable angina ([facility]) -Use nitroglycerin and nitrates -N.p.o. after midnight -Will need to proceed to have cath tomorrow -Consult cardiology. Coronary arteriosclerosis -Treat with statins -Manage also with nitrates -Aspirin -Consult cardiology and prep for heart cath later on today. Dyslipidemia -Continue statins. Malignant neoplasm of urinary bladder ([facility]) -Chronic problem we will continue to monitor Seizure disorder ([facility]) -Seizures currently stable resume and reconcile home [...] this hospital stay by a member of [facility]. 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[facility]) 08/04/2023 Degenerative lumbar spinal stenosis 08/04/2023 Deviated nasal septum 10/26/2023 Dyslipidemia ([facility]) 10/26/2023 Major depressive disorder, recurrent episode, mild (HCC) ([facility] [place] [place] 10/26/2023 Malignant neoplasm of urinary bladder ([facility] [place] 10/26/2023 Seizure disorder ([facility] [place] [place] 10/26/2023 Coronary arteriosclerosis ([facility] [place] [place] 07/21/2020 Class 3 severe obesity due to excess calories with serious comorbidity and body mass index (BMI) of40.0 to 44.9 in adult ([facility]) 01/12/2021 Encounter for long-term current use of medication 11/29/2023 Screening PSA (prostate specific antigen) 11/29/2023 Chest pain due to CAD ([facility]) 01/11/2024 KAROL (obstructive sleep apnea) 02/21/2024 Bilateral [...] pain Seizures (CMS/HCC) Sleep apnea 1998 Stroke ([facility]) 2009 Syncope, unspecified syncope type Tinnitus 1997 [...] (5 mg) by mouth in the morning and1 tablet (5 mg) before bedtime. Do not crush, chew, or split. Take as detailed on clinic hand out for colonoscopy prep. 4 tablet 0 [DISCONTINUED] furosemide (Lasix) 40 MG tablet Take 1 tablet (40 mg) by mouth Daily as needed (take1 tablet by mouth Daily as needed) 30 [...] is a poor candidate for an elective septoplasty.Recommend changing flonase to BID on the RT. documented in this encounterSalem Memorial District [id number] History of Present illness Narrative* Jose M ReaDO - 11/27/2024 10:15 AM EST General Surgery H&P Nazario Cortes 1955 Nazario Cortes is a 69 y.o. male presents for screening colonoscopy. Denies abdominal pain. Denies family hx of colon cancer. Denies melena or hematochezia. Denies changes in bowel habits. Denies changes in caliber of stools. Denies hx of unplanned weight loss. Deniesfevers, chills, or sweats. Denies nausea or vomiting. [...] cancer. Colonoscopy can be scheduled electively. Patient informedof the risks of procedure which include but [...] you, Ashley Rea DO documented in this encounterSalem Memorial District HospitalSzembbntye13-13-1432 History of Present illness Narrative* Jignesh Gonsalez MD - 11/22/2024 4:23 PM ESTAssociated Problem(s): Malignant neoplasm of urinary bladder (CMS/HCC) Follow up with urology. * Jignesh Gonsalez MD - 11/22/2024 4:23 PM ESTAssociated Problem(s): Seizure disorder (CMS/HCC) Continue medication. * Jignesh Gonsalez MD - 11/22/2024 4:23 PM ESTAssociated Problem(s): Major depressive disorder, recurrent episode, mild (HCC) (CMS/HCC) Symptoms stable and continue celexa. * Jignesh Gonsalez MD - 11/22/2024 4:22 PM ESTAssociated Problem(s): Class 3 severe obesity due to excess calories with serious comorbidity and body mass index (BMI) of 40.0 to 44.9 in adult (CMS/HCC) Weight loss indicated. * Jignesh Gonsalez MD - 11/22/2024 4:22 PM ESTAssociated Problem(s): Medicare annual wellness visit, subsequent Due for labs. Scheduled for consult with surgeon for colonoscopy. Discussed proper diet and regularaerobic exercise. Need aerobic exercise 5-6 days a week for 30 minutes at a time. Smaller portions and limit total calories. Tetanus every 10 years. Advised not to smoke. * Jignesh Gonsalez MD - 11/22/2024 3:30 PM EST Images from the original note were not [...] serious comorbidity and body mass index (BMI) of40.0 to 44.9 in adult (CMS/HCC) Weight loss indicated. Relevant Orders TSH Encounter for long-term current use of medication Relevant Orders Basic metabolic panel CBC and differential Hepatic function panel Screening PSA (prostate specific antigen) Relevant Orders PSA Medicare annual wellness visit, subsequent - Primary Due for labs. Scheduled for consult with surgeon for colonoscopy. Discussed proper diet and regularaerobic exercise. Need aerobic exercise 5-6 days a week for 30 minutes at a time. Smaller portions and limit total calories. Tetanus every 10 years. Advised not to smoke. documented in this encounterSalem Memorial District [id number] Telephone encounter Note* Telephone Encounter - ANNABELLE Bueno - 11/06/2024 1:01 PM EST Spoke to Janet, Chart was audited from 05/20/23 and needed my signature on the document.. added and faxed to [employer]. [facility] Work Phone: [phone]) 961-884012-17-2024 Miscellaneous Notes* Telephone Encounter - ANNABELEL Bueno - 11/06/2024 1:01 PM EST Spoke to Janet, Chart was audited from 05/20/23 and needed my signature on the document.. added and faxed to [employer]. * Telephone Encounter - Mallory Knight - 11/06/2024 9:02 AM EST Her name is Janet that called not Neetu. * Telephone Encounter - Mallory Knight - 11/06/2024 8:57 AM EST Neetu from [facility] center called and left vm that she needs a return call. She stated she has called a few times and has not received a call back regarding this patient. I tried to call back and it just kept ringing. Please call her back at [phone]. documented in this [facility]12-17-2024 Telephone encounter Note* Telephone Encounter - Malloryclary Knight - 11/06/2024 9:02 AM EST Her name is Janet that called not [employer]et[employer]. [facility] [id number] Telephone encounter Note* Telephone Encounter - Mallory Eugene - 11/06/2024 8:57 AM EST Neetu from [facility] called and left vm that she needs a return call. She stated she has called a few times and has not received a call back regarding this patient. I tried to call back and it just kept ringing. Please call her back at [phone]. [facility] [id number] History of Present illness Narrative* MASHA Ferrari - 10/30/2024 2:15 PM EST Pt picked up supplies documented in this [facility]12-05-2024 History of Present illness Narrative* Jignesh Gonsalez MD - 10/25/2024 5:13 PM ESTAssociated Problem(s): Internal derangement of right knee Increased pain after fall and very unsteady. X-ray with mild degenerative changes. Pain getting worse and likely with meniscal injury. Check MRI knee and will need to see ortho. Start prednisone. Usenorco PRN. Ice PRN. * Jignesh Gonsalez MD - 10/25/2024 5:13 PM ESTAssociated Problem(s): Degenerative lumbar spinal stenosis Pain stable and use norco PRN. Use robaxin for spasms. Continue PT exercises. * Jignesh Gonsalez MD - 10/25/2024 5:12 PM ESTAssociated Problem(s): Chronic rhinosinusitis Continued congestion and nose plugged. Start flonase and check CT sinuses. * Jignesh Gonsalez MD - 10/25/2024 5:12 PM ESTAssociated Problem(s): Chronic pain of right knee Increased pain after fall and very unsteady. X-ray with mild degenerative changes. Pain getting worse and likely with meniscal injury. Check MRI knee and will need to see ortho. Start prednisone. Usenorco PRN. Ice PRN. * Jignesh Gonsalez MD - 10/25/2024 3:30 PM EST Images from the original note were not [...] and popping. Not on medication. Concerned of de viated septum. Review of Systems Constitutional: Negative for [...] spasms. Continue PT exercises. Relevant Medications HYDROcodone-acetaminophen (Beaumont) 5-325 MG tablet Chronic rhinosinusitis Continued congestion [...] will need to see ortho. Start prednisone. Usenorco PRN. Ice PRN. Relevant Orders MR knee right wo IV contrast Chronic pain of right knee - Primary Increased pain after fall and very unsteady. X-ray with mild degenerative changes. Pain getting worse and likely with meniscal injury. Check MRI knee and will need to see ortho. Start prednisone. Usenorco PRN. Ice PRN. Relevant Medications predniSONE (Deltasone) 50 MG tablet Other Relevant Orders MR knee right wo IV contrast Other Visit Diagnoses Colon cancer screening Relevant Orders Ambulatory referral to General Surgery documented in this encounterSal[facility] [id number] NoteSUBJECTIVE: Chief complaint: Back pain. History of present [...] about 6 or 7 years ago, in [facility] and had injections, which he states he has made his symptoms worse. Not interested in pursuing additional injections. Has had animal care assistant many years ago for previous symptoms of [...] needed each day., Disp: , Rfl: HYDROcodone-acetaminophen (Beaumont) 5-325 mg tablet, take 1 tablet by mouth four times a day if needed for severe pain for up to 7 days, Disp: , Rfl: meclizine (Antivert) 25 mg tablet, take 1 tablet by mouth four times a day if needed for dizziness, (more content not included)...[facility]01-31-2024 Miscellaneous Notes* Telephone Encounter - Marissa Aguilera - 12/21/2023 3:24 PM EST Received faxed referral for patient to be seen for Lumbar. Called and spoke to patient, stated he has an appointment set up already at [facility] office. [facility] Telephone encounter Note* Telephone Encounter - Marissa Aguilera - 12/21/2023 3:24 PM EST Received faxed referral for patient to be seen for Lumbar. Called and spoke to patient, stated he has an appointment set up already at [facility] office. 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 11-10-2022 NotePROCEDURE: XR FOOT RT MIN [...] authenticated by: KELL BLANDON Date: 2022-09-30 08:07 [facility] [id number] NotePROCEDURE: XR KNEE LT 4V or >, [...] authenticated by: TRINIDAD BEAVER Date: 2022-08-23 14:20[facility] [id number] NotePROCEDURE: XR KNEE LT 4V or >, [...] Electronically authenticated by: TRINIDAD BEAVER Date: 2022-08-23 14:[address] [place], [place] [id number] NotePROCEDURE: XR KNEE LT 4V or >, [...] Electronically authenticated by: TRINIDAD BEAVER Date: 2022-08-23 14:[facility]05-17-2022 Evaluation note* Encounter Date Diagnosis Assessment Notes Treatment Notes Treatment Clinical Notes March, Bilateral impacted cerumen (ICD-10 - H61.23) Avoid using Q-tips or earplugs. Keep your ears clean and dry. Follow-up with your family physician for any further concerns. [employer] Other 02-07-2022 Evaluation note* Encounter Date Diagnosis [...] contact us for further management as needed. [employer] Other 01-01-2021 NoteMR#: [id number] E [facility] Pt. Name: Nazario Cortes Admitted: 11/20/2020 [...] history of coronary artery disease, followed by [facility] Cardiology Clinic that presents to the [facility] Emergency Department with complaints of chest [...] to follow up with his PCP and sports official. Total time of discharge was 45 minutes. Electronically Signed by: Trinidad Hamilton MD 11/21/2020 08:00 A Trinidad Hamilton MD .. Date Dict: 11/20/2020/06:21 P/Loida Ashley CNP Date Trans: 11/21/2020 12:04 A/shabbir [id number] cc: Jose Mccloud M.D. [address] [place] [id number] + Plan note Future Appointments Appointment Date:08/19/2023 10:30:00 AM Scheduled Provider:Chris CAMARILLO MD Location:[facility] Appointment Type:URO New Patient [facility] evaluation noteNo assessment information available [facility] Work Phone: Evaluation note* Diagnosis Onset Date Resolution Status Impacted cerumen of both ears acute [facility] Work Phone: Evaluation note* Diagnosis Onset Date Resolution Status Impacted cerumen of both ears acute Left elbow pain acute [facility] Work Phone: Evaluation note* Diagnosis Onset Date Resolution Status Left elbow pain acute Impacted cerumen of both ears acute [facility] Work Phone: Evaluation note* Diagnosis Onset Date Resolution Status Impacted cerumen of both ears acute Allergic rhinitis noneactive [facility] Work Phone: Evaluation note* Diagnosis [...] Coronary atherosclerosis of unspecified type of vessel, sk[place] or graft Chest pain due to CAD [...] Coronary atherosclerosis of unspecified type of vessel, [place] or graft Chest pain due to CAD [...] of lumbar region documented in this encounter [facility] HealthcareEvaluation note* Diagnosis Major depressive disorder, [...] Coronary atherosclerosis of unspecified type of vessel, [place] or graft Chest pain due to CAD [...] Coronary atherosclerosis of unspecified type of vessel, [place] or graft Chest pain due to CAD [...] of lumbar region Bilateral leg edema Edema KAORL (obstructive sleep apnea) Obstructive sleep apnea (adult) [...] Coronary atherosclerosis of unspecified type of vessel, [place] or graft Chest pain due to CAD [...] Coronary atherosclerosis of unspecified type of vessel, [place] or graft Chest pain due to CAD [...] Coronary atherosclerosis of unspecified type of vessel, [place] or graft Chest pain due to CAD [...] Coronary atherosclerosis of unspecified type of vessel, [place] or graft Chest pain due to CAD [...] of colon- Primary documented in this encounter [facility] HealthcareEvaluation note* Diagnosis Major depressive disorder, [...] Coronary atherosclerosis of unspecified type of vessel, [place] or graft Chest pain due to CAD [...] Coronary atherosclerosis of unspecified type of vessel, [place] or graft Chest pain due to CAD [...] Unspecified sinusitis (chronic) documented in this encounter [facility] HealthcareEvaluation note* Diagnosis Major depressive disorder, [...] Coronary atherosclerosis of unspecified type of vessel, [place] or graft Chest pain due to CAD [...] Deviated nasal septum documented in this encounter [facility] HealthcareEvaluation note* Diagnosis Major depressive disorder, [...] Coronary atherosclerosis of unspecified type of vessel, [place] or graft Chest pain due to CAD [...] unspecified site (CMS/HCC) Coronary artery disease involving skokomish coronary artery of skokomish heart without angina pectoris (CMS/HCC)- Primary SOB (shortness of breath) on exertion Shortness of breath documented in this encounter [facility] HealthcareEvaluation note* Diagnosis Major depressive disorder, [...] Coronary atherosclerosis of unspecified type of vessel, [place] or graft Chest pain due to CAD [...] unspecified site (CMS/HCC) Coronary artery disease involving skokomish coronary artery of skokomish heart without angina pectoris (CMS/HCC)- Primary SOB [...] Coronary atherosclerosis of unspecified type of vessel, [place] or graft Chest pain due to CAD [...] unspecified site (CMS/HCC) Coronary artery disease involving sk[place] coronary artery of sk[place]om[place] heart without angina pectoris (CMS/HCC)- Primary SOB [...] Shortness of breath documented in this encounter [facility]Evaluation note* Diagnosis Major depressive disorder, [...] Coronary atherosclerosis of unspecified type of vessel, [place] or graft Chest pain due to CAD [...] unspecified site (CMS/HCC) Coronary artery disease involving skokomish coronary artery of skokomish heart without angina pectoris (CMS/HCC)- Primary SOB [...] Coronary atherosclerosis of unspecified type of vessel, [place] or graft Chest pain due to CAD [...] unspecified site (CMS/HCC) Coronary artery disease involving skokomish coronary artery of skokomish heart without angina pectoris (CMS/HCC)- Primary SOB [...] failure (CMS/HCC) documented in this encounter [facility] [...] Coronary atherosclerosis of unspecified type of vessel, [place] or graft Chest pain due to CAD [...] unspecified site (CMS/HCC) Coronary artery disease involving skokomish coronary artery of skokomish heart without angina pectoris (CMS/HCC)- Primary SOB [...] (CMS/HCC)- Primary Chronic hypoxic respiratory failure (CMS/HCC) Sensorineural hearing loss, bilateral- Primary documented in [...] Coronary atherosclerosis of unspecified type of vessel, [place] or graft Chest pain due to CAD [...] unspecified site (CMS/HCC) Coronary artery disease involving skokomish coronary artery of skokomish heart without angina pectoris (CMS/HCC)- Primary SOB [...] (CMS/HCC)- Primary Chronic hypoxic respiratory failure (CMS/HCC) Chronic obstructive pulmonary disease, unspecified COPD type (CMS/HCC)- Primary Chronic hypoxic respiratory failure (CMS/HCC) Dysphagia, unspecified type documented in this encounter [facility] HealthcareEvaluation note* Diagnosis Major depressive disorder, recurrent episode, mild- Primary Major depressive disorder, recurrent episode, mild Degenerative lumbar spinal stenosis Spinal stenosis of lumbar region Dyslipidemia Other and unspecified hyperlipidemia Class 2 obesity in adult, unspecified BMI, unspecified obesity type, unspecified whether serious comorbidity present Screening PSA (prostate specific antigen) Special screening for malignant neoplasm of prostate Encounter for long-term current use of medication 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- Primary Spinal stenosis of lumbar region Neuropathy due to chemotherapeutic drug (HCC) Coronary arteriosclerosis- Primary Coronary atherosclerosis of unspecified type of vessel, [place] or graft Chest pain due to CAD Major depressive disorder, recurrent episode, mild Major depressive disorder, recurrent episode, mild Hospital discharge follow-up Other follow-up examination Major depressive disorder, recurrent episode, mild- Primary Major depressive disorder, recurrent episode, mild Degenerative lumbar spinal stenosis Spinal stenosis of lumbar region Bilateral leg edema Edema Closed fracture of multiple ribs of right side with routine healing KAROL (obstructive sleep apnea) Obstructive sleep apnea (adult) (pediatric) Neuropathy due to chemotherapeutic drug (HCC) Malignant neoplasm of urinary bladder, unspecified site (HCC) Major depressive disorder, recurrent episode, mild- Primary Major depressive disorder, recurrent episode, mild 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 Spinal stenosis of lumbar region Bilateral leg edema Edema KAROL (obstructive sleep apnea) Obstructive sleep apnea (adult) (pediatric) Morbid (severe) obesity due to excess calories ([facility]-HCC) Hyperlipidemia, unspecified Body mass index (BMI) 38.0-38.9, adult Chronic pain of right knee- Primary Internal derangement of right knee Chronic rhinosinusitis Unspecified sinusitis (chronic) Degenerative lumbar spinal stenosis Spinal stenosis of lumbar region Colon cancer screening Special screening for malignant neoplasms, colon Medicare annual wellness visit, subsequent- Primary Dyslipidemia Other and unspecified hyperlipidemia Encounter for long-term current use of medication Screening PSA (prostate specific antigen) Special screening for malignant neoplasm of prostate Class 3 severe obesity due to excess calories with serious comorbidity and body mass index (BMI) of 40.0 to 44.9 in adult ([facility]-HCC) Major depressive disorder, recurrent episode, mild Major depressive disorder, recurrent episode, mild Seizure disorder (HCC) Unspecified epilepsy without mention of intractable epilepsy Malignant neoplasm of urinary bladder, unspecified site (HCC) Coronary artery disease involving skokomish coronary artery of skokomish heart without angina pectoris- Primary SOB (shortness of breath) on exertion Shortness of breath Benign essential hypertension- Primary Essential hypertension, benign Bilateral leg edema Edema Major depressive disorder, recurrent episode, mild Major depressive disorder, recurrent episode, mild Degenerative lumbar spinal stenosis Spinal stenosis of lumbar region Neuropathy due to chemotherapeutic drug (HCC) SOB (shortness of breath) on exertion Shortness of breath Chronic obstructive pulmonary disease with acute exacerbation (HCC)- Primary Chronic hypoxic respiratory failure (HCC) Chronic obstructive pulmonary disease, unspecified COPD type (HCC)- Primary Chronic hypoxic respiratory failure (HCC) Dysphagia, unspecified type Dizziness Dizziness and giddiness Dyslipidemia Other and unspecified hyperlipidemia documented in this encounter [facility] HealthcareEvaluation note* Diagnosis Major depressive disorder, recurrent episode, mild- Primary Major depressive disorder, recurrent episode, mild Degenerative lumbar spinal stenosis Spinal stenosis of lumbar region Dyslipidemia Other and unspecified hyperlipidemia Class 2 obesity in adult, unspecified BMI, unspecified obesity type, unspecified whether serious comorbidity present Screening PSA (prostate specific antigen) Special screening for malignant neoplasm of prostate Encounter for long-term current use of medication 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- Primary Spinal stenosis of lumbar region Neuropathy due to chemotherapeutic drug (HCC) Coronary arteriosclerosis- Primary Coronary atherosclerosis of unspecified type of vessel, [place] or graft Chest pain due to CAD Major depressive disorder, recurrent episode, mild Major depressive disorder, recurrent episode, mild Hospital discharge follow-up Other follow-up examination Major depressive disorder, recurrent episode, mild- Primary Major depressive disorder, recurrent episode, mild Degenerative lumbar spinal stenosis Spinal stenosis of lumbar region Bilateral leg edema Edema Closed fracture of multiple ribs of right side with routine healing KAROL (obstructive sleep apnea) Obstructive sleep apnea (adult) (pediatric) Neuropathy due to chemotherapeutic drug (HCC) Malignant neoplasm of urinary bladder, unspecified site (HCC) Major depressive disorder, recurrent episode, mild- Primary Major depressive disorder, recurrent episode, mild 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 Spinal stenosis of lumbar region Bilateral leg edema Edema KAROL (obstructive sleep apnea) Obstructive sleep apnea (adult) (pediatric) Morbid (severe) obesity due to excess calories ([facility]) Hyperlipidemia, unspecified Body mass index (BMI) 38.0-38.9, adult Chronic pain of right knee- Primary Internal derangement of right knee Chronic rhinosinusitis Unspecified sinusitis (chronic) Degenerative lumbar spinal stenosis Spinal stenosis of lumbar region Colon cancer screening Special screening for malignant neoplasms, colon Medicare annual wellness visit, subsequent- Primary Dyslipidemia Other and unspecified hyperlipidemia Encounter for long-term current use of medication Screening PSA (prostate specific antigen) Special screening for malignant neoplasm of prostate Class 3 severe obesity due to excess calories with serious comorbidity and body mass index (BMI) of 40.0 to 44.9 in adult ([facility]) Major depressive disorder, recurrent episode, mild Major depressive disorder, recurrent episode, mild Seizure disorder (HCC) Unspecified epilepsy without mention of intractable epilepsy Malignant neoplasm of urinary bladder, unspecified site ([facility]) Coronary artery disease involving skokomish coronary artery of skokomish heart without angina pectoris- Primary SOB (shortness of breath) on exertion Shortness of breath Benign essential hypertension- Primary Essential hypertension, benign Bilateral leg edema Edema Major depressive disorder, recurrent episode, mild Major depressive disorder, recurrent episode, mild Degenerative lumbar spinal stenosis Spinal stenosis of lumbar region Neuropathy due to chemotherapeutic drug (HCC) SOB (shortness of breath) on exertion Shortness of breath Chronic obstructive pulmonary disease with acute exacerbation (HCC)- Primary Chronic hypoxic respiratory failure (HCC) Chronic obstructive pulmonary disease, unspecified COPD type (HCC)- Primary Chronic hypoxic respiratory failure (HCC) Dysphagia, unspecified type Benign essential hypertension- Primary Essential hypertension, benign [...] chemotherapeutic drug (HCC) documented in this encounter [facility] Healthcare[facility] general Narrative - Reported* Type Description Date Medical History Seizure Disorder Medical History neuropathy Medical History HX of Bladder CA Medical History hypercholesterolemia Surgical History TUMOR REMOVED FROM BLADDER Surgical History RIGHT ACHILLES TENDON REPAIR Hospitalization History See Above [employer] Other History general Narrative - Reported* Type [...] Surgical History gallbladder Hospitalization History See Above [employer] Other Hospital course Narrative No data available for this section [facility] InstructionsNot on filedocumented in this encounter [facility] No data available for this section [facility] reason for referral (narrative)No reason for referral information availableAdena F[facility] Center Work Phone: Reason for visit NarrativeReferral Dr. Newell Lumbar RadiculopathyNorth [employer] Other reason for visit Narrative* Consultation (Routine) - Closed Specialty Diagnoses / Procedures Referred By Yariel alvarez Referred To Contact General Surgery Diagnoses Colon cancer screening Procedures [place] OFFICE/OUTPATIENT [facility] Jignesh Gonsalez MD [address] [place] [address] Phone: tel: fax: Jose M Rea, [address] [place] [address] Phone: tel: fax: Referral ID Status Reason Start Date Expiration Date V isits Requested Visits Authorized [id number] Closed Specialty Services Required 10/25/2024 04/23/2025 1 [...] o other toxic agents (G62.2) Referral Organization [facility] Ne urosurgery Referring Provider First Name Luiz Referring Provider Last Name Keely Referring Provider Specialty Neurologica l Surgery Referred Organization [facility] Referred Address ,[place], [place],[address] Referred Provider Specialty Physical The rapist Referral [...] Impacted cerumen of both ears Allergic rhinitis Chief Complaint Admit Date Ears clogged May 12, 2025 11:5 0am Ear pain/fullness May 26, 2025 11:51 am Reason for Visit Admit Date Cerumen impaction May 12, 2025 11:5 0am Left otitis externa May 26, 2025 11:51 am Additional Source Comments (unrecognized sect ion and content) No Status Records FoundNo Status Records FoundNo Status Records FoundNo Status Records FoundNo Status Records FoundNo Status Records FoundNo Status Records FoundNo Status Records FoundNo Status Records Found INFORMATION SOURCE (unrecogn ized section and content) DATE CREATED AUTHOR 08/29/2021 [facility] DATE CREATED AUTHOR AUTHOR'S ORGANIZ ATION 10/31/2021 [facility] DATE CREATED AUTHOR AUTHOR'S ORGANIZ ATION 01/13/2023 [facility] DATE CREATED AUTHOR AUTHOR'S ORGANIZ ATION 12/25/2023 [facility] DATE CREATED AUTHOR AUTHOR'S ORGANIZ ATION 12/29/2023 [facility] DATE CREATED AUTHOR AUTHOR'S ORGANIZ ATION 10/20/[address] [facility] DATE CREATED AUTHOR AUTHOR'S ORGANIZ ATION 01/24/2025 [facility] DATE CREATED AUTHOR AUTHOR'S ORGANIZ ATION 05/16/2025 [facility] DATE CREATED AUTHOR AUTHOR'S ORGANIZ ATION 05/26/2025 [facility] EPIC REASON FOR VISIT (unrecogniz [...] Diagnoses Deviated nasal septum Chronic rhinosinusitis Procedures [place] OFFICE/OUTPATIENT [facility] 60 MINUTES Jignesh Gonsalez MD [address] [place] [address] Phone: tel: fax: Amrik Pérez MD [address] [facility] [address] [place] [address] Phone: tel: fax: Referral ID Status Reason Start Date Expiration Date V isits Requested Visits Authorized [id number] Closed Specialty Services Required 11/28/2024 05/27/2025 1 1 Reason Comments Follow-up Hospital f/up [place] Reason Onset Date Comments Med Refill 01/28/2025 Reason Comments Follow-up 3 mWeight loss Ankle Pain Reason Comments Follow-up [facility] hospital f/u Reason Comments Follow-up [facility] er f/up copd Reason Comments URI Follow-up Care Teams (unrecognized sec tion and content) [...] Attending Provider Active Start: September 07, 2024 Film Maker Relationship Specialty Start Date End Date Jignesh Gonsalez MD [address] [place] [id number] PCP - General Family Medicine 12/15/23 Film Maker Relationship Specialty Start Date End Date Jignesh Gonsalez MD [address] [place] [phone] PCP - General Family Medicine 12/15/23 Film Maker Relationship Specialty Start Date End Date Jignesh Gonsalez MD [address] [place] [address] PCP - General Family Medicine 12/15/23 Film Maker Relationship Specialty Start Date End Date Jignesh Gonsalez MD [address] [place] [phone] PCP - General Family Medicine 12/15/23 Film Maker Relationship Specialty Start Date End Date Jignesh Gonsalez MD [address] [place] [address] PCP - General Family Medicine 12/15/23 Film Maker Relationship Specialty Start Date End Date Jignesh Gonsalez MD [address] [place] [address] PCP - General Family Medicine 12/15/23 Film Maker Relationship Specialty Start Date End Date Jignesh Gonsalez MD [address] [place] [address] PCP - General Family Medicine 12/15/23 Film Maker Relationship Specialty Start Date End Date Jignesh Gonsalez MD [address] [place] [address] PCP - General Family Medicine 12/15/23 Film Maker Relationship Specialty Start Date End Date Jignesh Gonsalez MD [address] [place] [address] PCP - General Family Medicine 12/15/23 Film Maker Relationship Specialty Start Date End Date Jignesh Gonsalez MD [address] [place] [address] PCP - General Family Medicine 12/15/23 Film Maker Relationship Specialty Start Date End Date Jignesh Gonsalez MD [address] [place] [address] PCP - General Family Medicine 12/15/23 Film Maker Relationship Specialty Start Date End Date Jignesh Gonsalez MD [address] [place] [address] PCP - General Family Medicine 12/15/23 Film Maker Relationship Specialty Start Date End Date Jignesh Gonsalez MD [address] [place] [address] PCP - General Family Medicine 12/15/23 Film Maker Relationship Specialty Start Date End Date Jose Mccloud DO [address] [place] [address] PCP - General Family Medicine 11/17/23 Film Maker Relationship Specialty Start Date End Date Jignesh Gonsalez MD [address] [place] [address] PCP - General Family Medicine 12/15/23 Film Maker Relationship Specialty Start Date End Date Jignesh Gonsalez MD [address] [place] [address] PCP - General Family Medicine 12/15/23 Film Maker Relationship Specialty Start Date End Date Jignesh Gonsalez MD [address] [place] [address] PCP - General Family Medicine 12/15/23 Film Maker Relationship Specialty Start Date End Date Jignesh Gonsalez MD [address] [place] [address] PCP - General Family Medicine 12/15/23 Film Maker Relationship Specialty Start Date End Date Jignesh Gonsalez MD [address] [place] [address] PCP - General Family Medicine 12/15/23 Film Maker Relationship Specialty Start Date End Date Jignesh Gonsalez MD [address] [place] [address] PCP - General Family Medicine 12/15/23 Film Maker Relationship Specialty Start Date End Date Jignesh Gonsalez MD [address] [place] [address] PCP - General Family Medicine 12/15/23 Film Maker Relationship Specialty Start Date End Date Jignesh Gonsalez MD [address] [place] [address] PCP - General Family Medicine 12/15/23 Film Maker Relationship Specialty Start Date End Date Jignesh Gonsalez MD [address] [place] [address] PCP - General Family Medicine 12/15/23 Film Maker Relationship Specialty Start Date End Date Jignesh Gonsalez MD [address] [place] [address] PCP - General Family Medicine 12/15/23 Film Maker Relationship Specialty Start Date End Date Jignesh Gonsalez MD [address] [place] [address] PCP - General Family Medicine 12/15/23 Film Maker Relationship Specialty Start Date End Date Jignesh Gonsalez MD [address] [place] [address] PCP - General Family Medicine 12/15/23 Film Maker Relationship Specialty Start Date End Date Jignesh Gonsalez MD [address] [place] [address] PCP - General Family Medicine 12/15/23 Film Maker Relationship Specialty Start Date End Date Jignesh Gonsalez MD [address] [place] [address] PCP - General Family Medicine 12/15/23 Film Maker Relationship Specialty Start Date End Date Jignesh Gonsalez MD [address] [place] [address] PCP - General Family Medicine 12/15/23 Film Maker Relationship Specialty Start Date End Date Jignesh Gonsalez MD [address] [place] [address] PCP - General Family Medicine 12/15/23 Team Status: Inactive Member Role Status Dates Jignesh Gonsalez MD Primary Care Provider Active S tart: May 12, 2025 End: May 12, 2025 ELROY Arredondo RN GOVERNMENT AFFAIRS RESEARCHER-C Attending Provider Active Start: May 12 End: May 12, 2025 Team Status: Inactive Member Role Status Dates Jignesh Gonsalez MD Primary Care Provider Active S tart: May 26, 2025 End: May 26, 2025 Kaykay Mendoza APRN Attending Provider Active Start: May 26, 2025 End: May 26, 2025 Goals (unrecognized section and content) Goals may [...] BE BASED ON THE PRIMARY CLINICAL RECORDS. [facility] [employer] provides no warranty or guarantee of the accuracy or completeness of information in this document.
--- OUTSIDE RECORDS SUMMARY | 2025-06-02 21:30 | XMS_ITS | Encounter Summary ---
Author Organization [facility] Address [address] [place] [address] Care Team Providers Care Bankruptcy Processor Name Role Phone Jignesh Manjarrez MD Primary Care Provider [phone] Carlos Gonzáles LPN Unavailable Unavailable Encounter Details Date Type Department Care Team (Late st Contact Info) Description 2024 Orders Only [facility] [address] [place] [address] Jignesh Manjarrez MD [address] [place] [address] Social History Tobacco Use Types Packs/Day Years [...] How often do you attend chur or yarsanism services? More than 4 times per year 12/14/2023 Do you belong to any clubs o r organizations such as episcopal groups, unions, fraternal or athletic groups, or [...] Recorded Patient Health Questionnaire-2 Score 0 01/11/2024 [facility] - Occupational [...] place to sleep or slept in a fdc (including now)? No 12/14/2023 Sex and Gender Information Value Date Recorded Sex Assigned at Not on file Legal Sex Male 11:16 PM EDT Gender Identity Not on file Sexual Orientation Not on file documented as of this encounter Plan of Treatment Upcoming Encounters Date Type Department Care Team (Late st Contact Info) Description 08/28/2025 1:00 PM EDT [facility] [address] [place] [address] Jignesh Manjarrez MD [address] [place] [address] documented as of this encounter Procedures Procedure Name Priority Date/Time Associated Diagnosis Comments XR CHEST 1 VIEW Routine 12/30/2023 10:59 AM EST ELECTROCARDIOGRAM REPORT Routine 024 10:30 AM EST documented in this encounter Results * XR chest 1 view (12/30/2023 10:59 AM EST) Anatomical Region Laterality Modality Chest Radiographic Kizzy ging us Zain Washington MD IMG XR PROCEDURES Final Resul t * Electrocardiogram Report (12/30/2023 10:30 AM EST) us Jignesh Manjarrez MD IN CLINIC/BEDSIDE ORDERABLES Fin al Result documented in this encounter Visit Diagnoses Not on filedocumented in this encounter Additional Health Concerns Assessment Noted Time PHQ-9 Depression Total Score: 8 11/29/19 24 1:28 PM EST documented as of this encounter Care Teams Bankruptcy Processor Relationship Specialty Start Date End Date Jignesh Manjarrez MD [address] [place] [address] PCP - General Family Medicine 12/15/23 Carlos Gonzáles LPN Licensed Practical Nurse Family Medicine 03/12/24 documented as of this encounter
--- OUTSIDE RECORDS SUMMARY | 2025-06-02 21:30 | XMS_ITS | Encounter Summary ---
Author Organization [facility] Address [address] [place] [address] Care Team Providers Care Process Chemist Name Role Phone Adalid Gonsalez MD Primary Care Provider [phone] Encounter Details Date Type Department Care Team (Late st Contact Info) Description 11/27/2024 Clinisync Result Encounter [facility] External Department Unsolicited Adalid Gonsalez MD [address] [place] [address] Social History Tobacco Use Types Packs/Day Years [...] often do you attend chur ch or spiritism services? More than 4 times per year [...] Recorded Patient Health Questionnaire-2 Score 2 11/22/2024 [facility] Answer Date [...] Office Visit [facility] [address] [place] [address] Adalid Gonsalez MD [address] [place] [address] documented as of this encounter Procedures Procedure Name Priority Date/Time Associated Diagnosis Comments MR KNEE RT WO CON 11/27/2024 2:2 3 PM EST documented in this encounter Results * MR KNEE RT WO CON (11/27/2024 2:23 PM EST) Anatomical Region Laterality Modality Other 11/27/2024 2:23 PM EST Narrative 11/27/2024 2:25 PM EST The [address] [address] Magnetic Resonance Report Signed Patient: NAZARIO CORTES MR#: [id number] : 1955 Acct:[id number] Age/Sex: 69 / M ADM Date: 11/27/24 Loc: MRI Attending Dr: Adalid Gonsalez M.D. Ordering Physician: Adalid Gonsalez M.D. Date of Service: 11/27/24 Procedure(s): MR knee RT wo con Accession Number(s): [id number] cc: Adalid Gonsalez M.D. [place] [address] Patient Name: NAZARIO CORTES MRN: [id number] date: 1955 Sex: M Assigned Patient Location: MRI Current Patient Location: MRI Accession/Order Number: [id number] Exam Date: 11/27/2024 13:00 Report Date: 11/27/2024 14:23 At the request of: ADALID GONSALEZ Procedure: MR knee RT wo con EXAM: MR knee RT wo con REASON FOR EXAM: chronic right knee pain M25.561. TECHNIQUE: Multiplanar, multisequence imaging of the right knee was performed without contrast COMPARISON: Radiographs 11/09/2024. FINDINGS: Laterally, the iliotibial band, fibular collateral ligament, popliteus tendon and biceps tendon are intact. The ACL is intact. There is complex tear of the lateral meniscus with free edge radial tear involving the lateral meniscal body propagating is horizontal undersurface oblique tear into the body posterior horn junction. The tear extends to the peripheral margin of the lateral meniscus. No displaced meniscal fragment identified. Low to intermediate grade chondrosis of the lateral compartment. Medially, the medial collateral ligament is intact. Periligamentous edema is likely reactive. The PCL is intact. The medial meniscus demonstrates free edge fraying of the body posterior horn junction. There is also horizontal undersurface oblique tear of the body posterior horn junction. The root is intact. No meniscal extrusion or displaced meniscal fragment. Intermediate grade chondrosis of the medial compartment. The extensor mechanism is intact. Intermediate grade chondrosis the patellofemoral cartilage. There is moderate bone marrow edema involving the medial tibial plateau with curvilinear T1 and T2 hypointense signal involving the medial tibia. Findings consistent with a nondisplaced high-grade stress fracture. Trace joint effusion. The regional musculature is without muscle strain or tendon tear. MR/MR knee RT wo con IMPRESSION: 1. High-grade nondisplaced stress fracture involving the medial tibia. 2. Medial and lateral meniscal tears. 3. Moderate tricompartmental chondrosis. 4. Trace effusion Electronically authenticated by: MATT DORMAN Date: 11/27/2024 14:23 Dictated By: Matt Dorman M.D. Signed By: 11/27/24 1425 DD/ 22 TD/TT: Lumber Carrier Operator: Procedure Note Radiology, Radiologist, MD - 11/27/2024 [place] [address] Magnetic Resonance Report Signed Patient: NAZARIO CORTES EMR#: [id number] : 5Acct:[id number] Age/Sex: 69 / MADM Date: 11/27/24 Loc: MRI Attending Dr: Adalid Gonsalez M.D. Ordering Physician: Adalid Gonsalez M.D. Date of Service: 11/27/24 Procedure(s): MR knee RT wo con Accession Number(s): [id number] cc: Adalid Gonsalez M.D. The [place] [address] Patient Name: NAZARIO CORTES MRN: [id number] date: 1955 Sex: M Assigned Patient Location: MRI Current Patient Location: MRI Accession/Order Number: [id number] Exam Date: 11/27/2024 13:00 Report Date: 11/27/2024 14:23 At the request of: ADALID GONSALEZ Procedure: MR knee RT wo con EXAM: MR knee RT wo con REASON FOR EXAM: chronic right knee pain M25.561. TECHNIQUE: Multiplanar, multisequence imaging of the right knee wasperformed without contrast COMPARISON: Radiographs 11/09/2024. FINDINGS: Laterally, the iliotibial band, fibular collateral ligament, popliteustendon and biceps tendon are intact. The ACL is intact. There is complex tear ofthe lateral meniscus with free edge radial tear involving the lateral meniscal body propagating is horizontal undersurface oblique tear into the bodyposterior horn junction. The tear extends to the peripheral margin of the lateral meniscus. No displaced meniscal fragment identified. Low to intermediategrade chondrosis of the lateral compartment. Medially, the medial collateral ligament is intact. Periligamentous edemais likely reactive. The PCL is intact. The medial meniscus demonstrates freeedge fraying of the body posterior horn junction. There is also horizontal undersurface oblique tear of the body posterior horn junction. The root is intact. No meniscal extrusion or displaced meniscal fragment. Intermediate grade chondrosis of the medial compartment. The extensor mechanism is intact. Intermediate grade chondrosis the patellofemoral cartilage. There is moderate bone marrow edema involving the medial tibial plateauwith curvilinear T1 and T2 hypointense signal involving the medial tibia.Findings consistent with a nondisplaced high-grade stress fracture. Trace joint effusion. The regional musculature is without muscle strain or tendontear. MR/MR knee RT wo con IMPRESSION: 1. High-grade nondisplaced stress fracture involving the medial tibia. 2. Medial and lateral meniscal tears. 3. Moderate tricompartmental chondrosis. 4. Trace effusion Electronically authenticated by: MATT DORMAN Date: 11/27/2024 14:23 Dictated By: Matt Dorman M.D. Signed By:11/27/24 1425 DD/ 1423 TD/TT: Lumber Carrier Operator: Adalid Gonsalez MD [facility] Final Result documented in this encounter Visit Diagnoses Not on filedocumented in this encounter Additional Health Concerns Assessment Noted Time PHQ-9 Depression Total Score: 5 11/22/19 25 3:00 PM EST documented as of this encounter Care Teams Process Chemist Relationship Specialty Start Date End Date Adalid Gonsalez MD [address] [place] [address] PCP - General Family Medicine 12/15/23 documented as of this encounter
--- OUTSIDE RECORDS SUMMARY | 2025-06-02 21:30 | XMS_ITS | Encounter Summary ---
Author Organization [facility] Address [address] [place] [address] Care Team Providers Care Hydraulic Rockbreaker Operator Name Role Phone Jignesh Manjarrez MD Primary Care Provider [phone] Encounter Details Date Type Department Care Team (Late st Contact Info) Description 01/11/2025 Orders Only [facility] [address] [place] [address] Jignesh Manjarrez MD [address] [place] [address] Social History Tobacco Use Types Packs/Day Years [...] How often do you attend chur or jain services? More than 4 times per year 01/15/2025 Do you belong to any clubs o r organizations such as druze groups, unions, fraternal or athletic groups, or [...] Recorded Patient Health Questionnaire-2 Score 2 11/22/2024 [facility] - Occupational Stress Questionnaire Answer Date [...] any time in the past 12 m [facility], were you homeless or living in [...] Visit [facility] [address] [place] [address] Jignesh Manjarrez MD [address] [place] [address] documented as of this encounter Procedures Procedure Name Priority Date/Time Associated Diagnosis Comments EC ECHOCARDIOGRAM LIMITED 2 D M MODE Routine 01/11/2025 9:52 AM EST documented in this encounter Results * EC ECHOCARDIOGRAM LIMITED 2 D M MODE (01/11/2025 9:52 AM EST) Anatomical Region Laterality Modality Radiographic Kizzy ging Jignesh Manjarrez MD IMG XR PROCEDURES Final Result documented in this encounter Visit Diagnoses Not on filedocumented in this encounter Additional Health Concerns Assessment Noted Time PHQ-9 Depression Total Score: 5 11/22/19 25 3:00 PM EST documented as of this encounter Care Teams Hydraulic Rockbreaker Operator Relationship Specialty Start Date End Date Jignesh Manjarrez MD [address] [place] [address] PCP - General Family Medicine 12/15/23 documented as of this encounter
--- OUTSIDE RECORDS SUMMARY | 2025-06-02 21:30 | XMS_ITS | Encounter Summary ---
Author Organization [facility] Address [address] [place] [address] Care Team Providers Care Electric Fork Operator Name Role Phone Adalid Gonsalez MD Primary Care Provider [phone] Encounter Details Date Type Department Care Team (Late st Contact Info) Description 11/27/2024 Clinisync Result Encounter [facility] External Department Unsolicited Adalid Gonsalez MD [address] [place] [address] Social History Tobacco Use Types Packs/Day Years [...] often do you attend chur ch or pentecostalism services? More than 4 times per year 12/14/2023 Do you belong to any clubs o r organizations such as judaism groups, unions, fraternal or athletic groups, or [...] Recorded Patient Health Questionnaire-2 Score 2 11/22/2024 [facility] Answer Date [...] place to sleep or slept in a prison (including now)? No 12/14/2023 Sex and Gender [...] Office Visit [facility] [address] [place] [address] Adalid Gonsalez MD [address] [place] [address] documented as of this encounter Procedures Procedure Name Priority Date/Time Associated Diagnosis Comments CT SINUS WO CON 11/27/2024 4:03 PM EST documented in this encounter Results * CT SINUS WO CON (11/27/2024 4:03 PM EST) Anatomical Region Laterality Modality Other 11/27/2024 4:03 PM EST Narrative 11/27/2024 4:06 PM EST The [address] [address] [address] Scan Report Signed Patient: NZAARIO CORTES MR#: [id number] : 1955 Acct:[id number] Age/Sex: 69 / M ADM Date: 11/27/24 Loc: MRI Attending Dr: Adalid Gonsalez M.D. Ordering Physician: Adalid Gonsalez M.D. Date of Service: 11/27/24 Procedure(s): CT sinus wo con Accession Number(s): [id number] cc: Adalid Gonsalez M.D. [place] [address] Patient Name: NAZARIO CORTES MRN: [id number] date: 1955 Sex: M Assigned Patient Location: MRI Current Patient Location: MRI Accession/Order Number: [id number] Exam Date: 11/27/2024 12:37 Report Date: 11/27/2024 16:03 At the request of: ADALID GONSALEZ Procedure: CT sinus wo con CT SINUSES WITHOUT CONTRAST, 11/27/2024. HISTORY: Chronic sinusitis. COMPARISON: None. TECHNIQUE: Noncontrast axial CT images obtained through the sinuses. Reconstructions obtained in the sagittal and coronal planes. Dose reduction techniques were achieved by using automated exposure control and/or adjustment of mA and/or kV according to patient size and/or use of iterative reconstruction technique. FINDINGS: The maxillary sinuses are clear. Ostiomeatal units are patent. Nasal septum deviates to the right 5 mm. There is nasal septal spurring to the right. Nasal passages are clear. No nasal cavity polyps. Ethmoid air cells are clear. Frontal sinuses are clear. Sphenoid sinuses are clear. No air-fluid levels. The lee of the sinuses are intact. The orbital contents are normal. Prior cataract surgery. Nasopharynx is normal. [employer] Labourer spaces are normal. CT/CT sinus wo con IMPRESSION: 1. The nasal septum deviates to the right by 5 mm. 2. The paranasal sinuses are clear. Electronically authenticated by: JOSE SALDAÑA Date: 11/27/2024 16:03 Dictated By: Jose Saldaña M.D. Signed By: 11/27/24 1606 DD/ 1603 TD/TT: Pest Control Service Representative: Procedure Note Radiology, Radiologist, MD - 11/27/[address] [address] [address] Scan Report Signed Patient: NAZARIO CORTES EMR#: [id number] : 5Acct:[id number] Age/Sex: 69 / MADM Date: 11/27/24 Loc: MRI Attending Dr: Adalid Gonsalez M.D. Ordering Physician: Adalid Gonsalez M.D. Date of Service: 11/27/24 Procedure(s): CT sinus wo con Accession Number(s): [id number] cc: Adalid Gonsalez M.D. The [place] [id number] Patient Name: NAZARIO CORTES MRN: [id number] date: 1955 Sex: M Assigned Patient Location: MRI Current Patient Location: MRI Accession/Order Number: [id number] Exam Date: 11/27/2024 12:37 Report Date: 11/27/2024 16:03 At the request of: ADALID GONSALEZ Procedure: CT sinus wo con CT SINUSES WITHOUT CONTRAST, 11/27/2024. HISTORY: Chronic sinusitis. COMPARISON: None. TECHNIQUE: Noncontrast axial CT images obtained through the sinuses. Reconstructions obtained in the sagittal and coronal planes. Dosereduction techniques were achieved by using automated exposure control and/oradjustment of mA and/or kV according to patient size and/or use of iterative reconstruction technique. FINDINGS: The maxillary sinuses are clear. Ostiomeatal units are patent.Nasal septum deviates to the right 5 mm. There is nasal septal spurring to the right. Nasal passages are clear. No nasal cavity polyps. Ethmoid air cells areclear. Frontal sinuses are clear. Sphenoid sinuses are clear. No air-fluidlevels. The lee of the sinuses are intact. The orbital contents are normal. Prior cataract surgery. Nasopharynx is normal. [employer] Labourer spaces are normal. CT/CT sinus wo con IMPRESSION: 1. The nasal septum deviates to the right by 5 mm. 2. The paranasal sinuses are clear. Electronically authenticated by: JOSE SALDAÑA Date: 11/27/2024 16:03 Dictated By: Jose Saldaña M.D. Signed By:11/27/24 1606 DD/ 1603 TD/TT: Pest Control Service Representative: Adalid Gonsalez MD [facility] Final Result documented in this encounter Visit Diagnoses Not on filedocumented in this encounter Additional Health Concerns Assessment Noted Time PHQ-9 Depression Total Score: 5 11/22/19 25 3:00 PM EST documented as of this encounter Care Teams Electric Fork Operator Relationship Specialty Start Date End Date Adalid Gonsalez MD [address] [place] [address] PCP - General Family Medicine 12/15/23 documented as of this encounter
--- OUTSIDE RECORDS SUMMARY | 2025-06-02 21:30 | XMS_ITS | Encounter Summary ---
Author Organization [facility] Address [id number] [address] [place] [address] Care Team Providers Care Game Programmer Name Role Phone Jose Marie DO Primary Care Provider [phone] Reason for Visit * Reason Comments Med Refill Encounter Details Date Type Department Care Team (Late st Contact Info) Description 12/28/2022 Refill [facility] - Family Medicine [address] [place] [address] Jose Marie DO [address], [facility] [place] [address] Social History Tobacco Use Types Packs/Day Years [...] on filedocumented in this encounter Care Teams Game Programmer Relationship Specialty Start Date End Date Jose Marie DO [address] [place] [address] PCP - General Family Medicine 11/17/23 06/11/24 documented as of this encounter
--- OUTSIDE RECORDS SUMMARY | 2025-06-02 21:30 | XMS_ITS | Encounter Summary ---
Author Organization [facility] Address [address] [place] [address] Care Team Providers Care Bunk House Worker Name Role Phone Jignesh Manjarrez MD Primary Care Provider [phone] Carlos Gonzáles LPN Unavailable Unavailable Encounter Details Date Type Department Care Team (Late st Contact Info) Description 01/31/2024 Orders Only [facility] [address] [place] [address] Jignesh Manjarrez MD [address] [place] [address] Social History Tobacco Use Types Packs/Day Years [...] How often do you attend chur or protestant services? More than 4 times per year [...] Recorded Patient Health Questionnaire-2 Score 0 01/11/2024 [facility] - [...] place to sleep or slept in a retirement (including now)? No 12/14/2023 Sex and Gender Information Value Date Recorded Sex Assigned at Not on file Legal Sex Male 11:16 PM EDT Gender Identity Not on file Sexual Orientation Not on file documented as of this encounter Plan of Treatment Upcoming Encounters Date Type Department Care Team (Late st Contact Info) Description 08/28/2025 1:00 PM EDT [facility] [address] [place] [address] Jignesh Manjarrez MD [address] [place] [address] documented as of this encounter Procedures Procedure Name Priority Date/Time Associated Diagnosis Comments XR KNEE 3 VIEWS RIGHT Routine 01/31/2024 1:30 PM EDT XR CERVICAL SPINE 2-3 VIEWS Routine 01/31/2024 1:15 PM EDT XR WRIST 3+ VIEWS LEFT Routine 01/31/2024 10:25 AM EDT documented in this encounter Results * XR knee 3 views right (01/31/2024 1:30 PM EDT) Anatomical Region Laterality Modality Lower Extremities, Knee Right Radiogra phic Imaging us Jignesh Manjarrez MD IMG XR PROCEDURES Final Result * XR cervical spine 2 or 3 views (01/31/2024 1:15 PM EDT) Anatomical Region Laterality Modality Spine, C-spine Radiographic Kizzy ging us Jignesh Manjarrez MD IMG XR PROCEDURES Final Result * XR wrist 3+ views left (01/31/2024 10:25 AM EDT) Anatomical Region Laterality Modality Upper Extremities, Wrist Left Radiogr aphic Imaging us Jignesh Manjarrez MD IMG XR PROCEDURES Final Result documented in this encounter Visit Diagnoses Not on filedocumented in this encounter Additional Health Concerns Assessment Noted Time PHQ-9 Depression Total Score: 8 11/29/19 24 1:28 PM EST documented as of this encounter Care Teams Bunk House Worker Relationship Specialty Start Date End Date Jignesh Manjarrez MD [address] [place] [address] PCP - General Family Medicine 12/15/23 Carlos Gonzáles LPN Licensed Practical Nurse Family Medicine 03/12/24 documented as of this encounter
--- OUTSIDE RECORDS SUMMARY | 2025-06-02 21:30 | XMS_ITS | Encounter Summary ---
Author Organization [employer] Address [id number] [address] [place] [address] Care Team Providers Care Irrigation Service Technician Name Role Phone Jose Maire DO Primary Care Provider Reason for Visit * Reason Comments Med Refill Encounter Details Date Type Department Care Team (Late st Contact Info) Description 11/15/2022 Refill [facility] - Family Medicine [address] [place] [address] Jose Marie DO [address], [place] [address] Seizure ([facility]) Social History Tobacco Use Types Packs/Day Years [...] Telephone Encounter - Jose Marie DO - 11/15/2022 10:35 AM EST Rx sent in. He is due for an appointment. He isn't coming here due to insurance reasons and he needs to get future refills from his new PCP since it is a controlled substance or needs to come in and pay for visit whenever that may be * Telephone Encounter - Flower Downey - 11/15/2022 10:35 AM EST I talked to the patient and he does have a new PCP so I did inform him that his new Dr will be the one to fill it from now on documented in this encounter Plan of Treatment Not on file documented as of this encounter Visit Diagnoses Diagnosis Seizure (CMS-HCC) Other convulsions documented in this encounter Care Teams Irrigation Service Technician Relationship Specialty Start Date End Date Jose Marie DO [address], [place] [address] PCP - General Family Medicine 11/17/23 06/11/24 documented as of this encounter
--- OUTSIDE RECORDS SUMMARY | 2025-06-02 21:30 | XMS_ITS | Patient Health Record ---
Author Organization [facility] [place] Address [address] [place] [address] Care Team Providers Care Seater Grinder Name Role Phone Jignesh Manjarrez MD Primary Care Provider Unavailab luis BandarPerfecto Unavailable [phone] Allergies Allergen (clinical drug ingredient) Drug/Non Drug Allergy documented on EMR Reaction Allergy Type Onset Date Status gabapentin Gabapentin unknown Drug Allergy Activ e oxycodone oxyCODONE anaphylaxis Drug Allergy Activ e Results Component Value Reference Range Notes [id number] SCREENIN G SWAB Reviewed date:04/30/2025 04:32:54 PM Interpretation: Performing Lab: Notes/Report: INFLUENZA A AND B AG Reviewed date:03/09/2025 12:47:27 PM Interpretation: Performing Lab: Notes/Report: [facility] , Influenza Virus A Antigen Negative cannot be ruled out. Flu A antigen in the sample may be Negative for Flu A protein antigen. Infection due to Flu A below the detection limit of the test. Influenza Virus B Antigen Negative cannot be ruled out. Flu B antigen in the sample may be Negative for Flu B protein antigen. Infection due to Flu B below the detection limit of the test. Performing Lab: see note ML - [facility] LB MAGNESIUM Reviewed date:03/09/2025 12:47:27 PM Interpretation: Performing Lab: Notes/Report: Comment am or er blood [facility] , Magnesium 1.9 1.8-2.4 mg/dL Performing Lab: see note ML - [facility] LB RSV Reviewed date:03/09/2025 12:47:27 PM Interpretation: Performing Lab: Notes/Report: [facility] , Respiratory Syncytial Virus Not Detected NOT DETECTE Performing Lab: see note - [facility] LB SARS-CoV-2 Ag* Reviewed date:03/09/2025 12:47:27 PM Interpretation: Performing Lab: Notes/Report: [facility] , SARS-CoV-2 Ag NEGATIVE NEGATIVE authorized by the FDA under an Emergency Use Authorization complexity testing. This test has been authorized only for the detection of proteins from SARS-CoV-2, not for any other and/or diagnosis of Covid-19 under section 564(b)(1) of the circumstances exist justifying the authorization of This test has not been FDA cleared or approved, but has been (EUA) for use by authorized laboratories certified under viruses or pathogens. The emergency use of this test is Act, 21 U.S.C. 360bbb-3(b)(1), unless the declaration is CLIA that meet the requirements to perform moderate or high emergency use of in vitro diagnostic tests for detection authorized for the duration of the declaration that terminated or authorization is revoked sooner. Performing Lab: see note ML - [facility] LB White Blood Cells Reviewed date:03/11/2025 06:00:00 PM Interpretation: Performing Lab: Notes/Report: [facility] , White Blood Cells See Below For Report Wh ite Blood Cells White Blood Cells Many White Bloo d Cells Performing Lab: see note LC - [facility] LB Epithelial Cells Reviewed date:03/11/2025 06:00:00 PM Interpretation: Performing Lab: Notes/Report: [facility] , Epithelial Cells See Below For Report Moderate Epithelial Cells Performing Lab: see note LC - [facility] LB Result 1 Reviewed date:03/11/2025 06:00:00 PM Interpretation: Performing Lab: Notes/Report: [facility] , Result 1 See Below For Report Result 1 Many gram positive cocci. Performing Lab: see note LC - [facility] LB Result 2 Reviewed date:03/11/2025 06:00:00 PM Interpretation: Performing Lab: Notes/Report: [facility] , Result 2 See Below For Report Result 2 Few gram positive rods. Performing Lab: see note LC - [facility] LB Result 3 Reviewed date:03/11/2025 06:00:00 PM Interpretation: Performing Lab: Notes/Report: [facility] , Result 3 See Below For Report Result 3 CORPORATE STRATEGY ANALYST Performing Lab: see note LC - [facility] LB Result 4 Reviewed date:03/11/2025 06:00:00 PM Interpretation: Performing Lab: Notes/Report: [facility] , Result 4 See Below For Report CORPORATE STRATEGY ANALYST Result 4 Performing Lab: see note LC - [facility] LB Gram Stain Evaluation Reviewed date:03/10/2025 07:30:26 PM Interpretation: Performing Lab: Notes/Report: [facility] , Gram Stain Evaluation See Below For Report This specimen is of good quality and is acceptable for routine Gram Stain Evaluation Gram Stain Evaluation bacterial culture. This specimen is of good quality and is acceptable for routine Gram Stain Evaluation Performing Lab: see note - [facility] LB Lower Respiratory Culture Reviewed date:03/11/2025 06:00:01 PM Interpretation: Performing Lab: Notes/Report: [facility] , Lower Respiratory Culture See Below For Report WILL FOLLOW Lower Respiratory Culture Lower Respiratory Culture Routine respiratory angelic WILL FOLLOW Lower Respiratory Culture Lower Respiratory Culture [facility] Lower Respiratory Culture Lower Respiratory Culture [address] [place] [phone] WILL FOLLOW Lower Respiratory Culture Lower Respiratory Culture Shared Services Representative: Jl Solano PhD, Phone: [phone] WILL FOLLOW Lower Respiratory Culture Performing Lab: see note - [facility] LB SEE REPORT - Social Insurance Administrator Id information not found for OBX-specific multimedia producer legend Gram Stain Evaluation Reviewed date:03/11/2025 06:00:00 PM Interpretation: Performing Lab: Notes/Report: [facility] , Gram Stain Evaluation See Below For Report This specimen is of good quality and is acceptable for routine Gram Stain Evaluation Gram Stain Evaluation bacterial culture. This specimen is of good quality and is acceptable for routine Gram Stain Evaluation Performing Lab: see note - [facility] LB PROF CHEM 8 (BAS METB) Reviewed date:03/09/2025 12:47:27 PM Interpretation: Performing Lab: Notes/Report: [facility] , Sodium 136 136-145 mmol/L Potassium 4.9 3.5-5.1 mmol/L Chloride 102 98-107 mmol/L Carbon Dioxide 25.2 21.0-32.0 mmol/L Anion Gap 13.7 Glucose 131 74-106 mg/dL Blood Urea Nitrogen 20.0 7.0-18.0 mg/dL Creatinine 0.99 0.70-1.30 mg/dL Estimated GFR ( Cindy >60 >=60 mL/min/1.73m 2 Estimated GFR (Non- Vonda >60 >=60 mL/min/1.73m 2 BUN Creatinine Ratio 20.2 Calcium 8.6 8.5-10.1 mg/dL Performing Lab: see note ML - [facility] LB PROF CHEM 8 (BAS METB) Reviewed date:03/10/2025 07:30:26 PM Interpretation: Performing Lab: Notes/Report: [facility] , Sodium 135 136-145 mmol/L Potassium 4.7 3.5-5.1 mmol/L Chloride 102 98-107 mmol/L Carbon Dioxide 26.9 21.0-32.0 mmol/L Anion Gap 10.8 Glucose 109 74-106 mg/dL Blood Urea Nitrogen 24.0 7.0-18.0 mg/dL Creatinine 0.84 0.70-1.30 mg/dL Estimated GFR ( Cindy >60 >=60 mL/min/1.73m 2 Estimated GFR (Non- Vonda >60 >=60 mL/min/1.73m 2 BUN Creatinine Ratio 28.6 Calcium 8.5 8.5-10.1 mg/dL Performing Lab: see note ML - [facility] LB CBC AUTO DIFF Reviewed date:03/11/2025 02:06:45 PM Interpretation: Performing Lab: Notes/Report: [facility] , White Blood Count 10.0 4.0-11.0 10 3/uL Red Blood Count 4.13 4.70-6.10 10 6/uL Hemoglobin 13.7 14.0-18.0 g/dL Hematocrit 41.4 42.0-54.0 % Mean Corpuscular Volume 100.2 80.0-94.0 fL Mean Corpuscular Hemoglobin 33.2 25.9-34.0 pg Mean Corpuscular HGB Conc 33.1 29.9-35.2 g/dL Red Cell Distribution Width 13.0 11.0-15.0 % Platelet Count 183 150-450 10 3/uL Mean Platelet Volume 10.0 9.5-13.5 fL Neutrophils Percent Auto 70.8 43.0-75.0 % Lymphocytes Percent Auto 18.4 20.5-60.0 % Monocytes Percent Auto 7.9 1.7-12.0 % Eosinophils Percent Auto 1.8 0.9-7.0 % Basophils Percent Auto 0.6 0.2-2.0 % Immature Granulocytes Pct Auto 0.5 0.0-0.5 % Neutrophils Absolute Auto 7.1 1.4-6.5 10 3/uL Lymphocytes Absolute Auto 1.8 1.2-3.8 10 3/uL Monocytes Absolute Auto 0.8 0.3-0.8 10 3/uL Eosinophils Absolute Auto 0.2 0.0-0.7 10 3/uL Basophils Absolute Auto 0.1 0.0-0.1 10 3/uL Immature Granulocytes Abs Auto 0.05 0.00-0.03 10 3/uL Performing Lab: see note - [facility] LB PROF CHEM 8 (BAS METB) Reviewed date:03/11/2025 02:06:45 PM Interpretation: Performing Lab: Notes/Report: [facility] , Sodium 137 136-145 mmol/L Potassium 4.3 3.5-5.1 mmol/L Chloride 100 98-107 mmol/L Carbon Dioxide 28.1 21.0-32.0 mmol/L Anion Gap 13.2 Glucose 104 74-106 mg/dL Blood Urea Nitrogen 27.0 7.0-18.0 mg/dL Creatinine 0.92 0.70-1.30 mg/dL Estimated GFR ( Cindy >60 >=60 mL/min/1.73m 2 Estimated GFR (Non- Vonda >60 >=60 mL/min/1.73m 2 BUN Creatinine Ratio 29.3 Calcium 8.5 8.5-10.1 mg/dL Performing Lab: see note ML - [facility] LB CBC AUTO DIFF Reviewed date:03/10/2025 07:30:26 PM Interpretation: Performing Lab: Notes/Report: [facility] , White Blood Count 9.9 4.0-11.0 10 3/uL Red Blood Count 4.14 4.70-6.10 10 6/uL Hemoglobin 13.7 14.0-18.0 g/dL Hematocrit 41.8 42.0-54.0 % Mean Corpuscular Volume 101.0 80.0-94.0 fL Mean Corpuscular Hemoglobin 33.1 25.9-34.0 pg Mean Corpuscular HGB Conc 32.8 29.9-35.2 g/dL Red Cell Distribution Width 13.2 11.0-15.0 % Platelet Count 165 150-450 10 3/uL Mean Platelet Volume 10.1 9.5-13.5 fL Neutrophils Percent Auto 75.7 43.0-75.0 % Lymphocytes Percent Auto 15.5 20.5-60.0 % Monocytes Percent Auto 6.3 1.7-12.0 % Eosinophils Percent Auto 1.5 0.9-7.0 % Basophils Percent Auto 0.4 0.2-2.0 % Immature Granulocytes Pct Auto 0.6 0.0-0.5 % Neutrophils Absolute Auto 7.5 1.4-6.5 10 3/uL Lymphocytes Absolute Auto 1.5 1.2-3.8 10 3/uL Monocytes Absolute Auto 0.6 0.3-0.8 10 3/uL Eosinophils Absolute Auto 0.2 0.0-0.7 10 3/uL Basophils Absolute Auto 0.0 0.0-0.1 10 3/uL Immature Granulocytes Abs Auto 0.06 0.00-0.03 10 3/uL Performing Lab: see note ML - [facility] LB CBC AUTO DIFF Reviewed date:03/09/2025 12:47:27 PM Interpretation: Performing Lab: Notes/Report: [facility] , White Blood Count 11.9 4.0-11.0 10 3/uL Red Blood Count 4.07 4.70-6.10 10 6/uL Hemoglobin 13.4 14.0-18.0 g/dL Hematocrit 40.8 42.0-54.0 % Mean Corpuscular Volume 100.2 80.0-94.0 fL Mean Corpuscular Hemoglobin 32.9 25.9-34.0 pg Mean Corpuscular HGB Conc 32.8 29.9-35.2 g/dL Red Cell Distribution Width 13.0 11.0-15.0 % Platelet Count 189 150-450 10 3/uL Mean Platelet Volume 10.3 9.5-13.5 fL Neutrophils Percent Auto 88.2 43.0-75.0 % Lymphocytes Percent Auto 7.1 20.5-60.0 % Monocytes Percent Auto 3.6 1.7-12.0 % Eosinophils Percent Auto 0.1 0.9-7.0 % Basophils Percent Auto 0.3 0.2-2.0 % Immature Granulocytes Pct Auto 0.7 0.0-0.5 % Neutrophils Absolute Auto 10.5 1.4-6.5 10 3/uL Lymphocytes Absolute Auto 0.8 1.2-3.8 10 3/uL Monocytes Absolute Auto 0.4 0.3-0.8 10 3/uL Eosinophils Absolute Auto 0.0 0.0-0.7 10 3/uL Basophils Absolute Auto 0.0 0.0-0.1 10 3/uL Immature Granulocytes Abs Auto 0.08 0.00-0.03 10 3/uL Performing Lab: see note ML - [facility] LB Reason For Referral No Information Medications Medication SIG (Take, Route, Frequency, Duration) Notes Start Date End Date Status Fluticasone Propionate 50 MCG/ACT instill 2 (TWO) sprays IN EACH NOSTRIL DAILY, before first use prime pump, after use clean tip and replace cap Nasal for 60 Days Active Furosemide 40 MG Oral for 30 Days Active Benzonatate 100 MG Oral for 5 Days Active Phenytoin Sodium Extended 100 MG Oral for 90 Days Active Citalopram Hydrobromide 40 MG TAKE 1 TABLET BY MOUTH IN THE MORNING Oral for 90 Days Active predniSONE 20 MG Oral for 5 Days Active Albuterol Sulfate HFA 108 (90 Base) MCG/ACT 2 puffs as needed for SOB Inhalation Q4H for 17 days 18gm or whatever it is ... dispense #1 inhaler Active Albuterol Sulfate (2.5 MG/3ML) 0.083% Inhalation for 8 Days Active Meclizine HCl 25 MG Oral for 8 Days Active Incruse Ellipta 62.5 MCG/ACT 1 puff Inhalation QD for 30 days Active HYDROcodone-Acetaminop hen 5-325 MG TAKE 1 TABLET BY MOUTH FOUR TIMES DAILY NEEDED FOR PAIN Oral for 7 Days Active Atorvastatin Calcium 10 MG TAKE 1 TABLET BY MOUTH AT BEDTIME Oral for 90 Days Active Nitroglycerin 0.4 MG 1 tablet under the tongue and allow to dissolve as needed. Take every 5 minutes up to 3 times if chest pain persists Sublingual Three times a day Active Azithromycin 250 MG TAKE 2 TABLETS by mouth today, THEN take 1 TABLET once a day FOR the next 4 DAYS. Oral for 5 Days Active PHENobarbital 32.4 MG TAKE 2 TABLETS BY MOUTH THREE TIMES DAILY Oral for 30 Days Active Methocarbamol 750 MG TAKE 1 TABLET BY MOUTH THREE TIMES DAILY NEEDED FOR MUSCLE SPASMS Oral for 14 Days Active Aspirin 81 MG 1 tablet Orally Once a day Active Metoprolol Succinate ER 25 MG Oral for 90 Days Active Advair Diskus 500-50 MCG/ACT 1 puff Inhalation BID for 30 days Rinse after use May fill generic or Wixela if insurance mandates it. 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) Active confirmed Problem Chronic respiratory failure (59654567) Chronic respiratory failure with hypoxia (J96.11) Active confirmed Problem Morbid obesity (160604805) Morbid obesity (E66.01) Active confirmed Problem COPD - Chronic obstructive pulmonary disease (47924659) COPD (chronic obstructive pulmonary disease) (J44.9) Active confirmed Problem Coronary artery disease (13381538) CAD (coronary artery disease) (I25.10) Active confirmed Problem Obstructive sleep apnea syndrome (34804341) KAROL (obstructive sleep apnea) (G47.33) Active confirmed Problem Macrocytic anemia (19809213) Macrocytic anemia (D53.9) Active confirmed Problem Ex-tobacco user (finding) (601410471) History of tobacco abuse (Z87.891) Active confirmed Problem Epilepsy (44769795) Seizure disorder, primary (G40.909) Active confirmed Problem 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) Active confirmed Vital Signs Heart Rate 68 /min 04/18/2025 Temperature 96.6 degrees Fahrenheit 04/18/2025 Respiratory Rate 18 /min 04/18/2025 Oximetry 94 % 04/18/2025 Blood pressure diastolic 65 mm Hg 04/18/2025 Height 72.50 in 04/18/2025 Blood pressure systolic 129 mm Hg 04/18/2025 Weight 320.2 lbs 04/18/2025 BMI 42.83 kg/m2 04/18/2025 Encounters Encounter Location Date Provider Diagnosis Pulmonary [facility] [address] [place] [address] 04/18/2025 [facility] COPD (chronic obstructive pulmonary disease) J44.9 ; Chronic respiratory failure with hypoxia J96.11 ; Peripheral eosinophilia D72.19 ; CAD (coronary artery disease) I25.10 ; Macrocytic anemia D53.9 ; Seizure disorder, primary G40.909 ; Malignant neoplasm of mediastinum, part unspecified C38.3 ; KAROL (obstructive sleep apnea) G47.33 ; History of tobacco abuse Z87.891 and Morbid obesity E66.01 Pul[facility] [address] [place] [address] 03/27/2025 [facility] [address] [place] [address] 04/18/2025 Perfectoari Portillo COPD (chronic obstructive pulmonary disease) J44.9 Assessments Encounter Date Diagnosis (ICD Code) Assessment Notes Treatment Notes Treatment Clinical Notes Section Notes 04/18/2025 Chronic respiratory failure with hypoxia (ICD-10 - J96.11) [id number] performed today regarding continued need for supplemental O2. Patient was prescribed O2 @ discharge from hospital prior to establishing care with id. Counseled patient to continue using O2 for now as his breathing & respiratory status is unstable. He voiced improvement in dyspnea with use, and notices SpO2 drops into the 80's still when not weareing O2. 04/18/2025 COPD (chronic obstructive pulmonary disease) (ICD-10 [...] process, so will add high dose ICS ([facility] no longer has FeNO testing). He states [...] eosinophils is indicated (e.g. Dupixent, Fasenra). 04/18/2025 COPD (chronic obstructive pulmonary disease) (ICD-10 - J44.9) 04/18/2025 Peripheral eosinophilia (ICD-10 - D72.19) Eosinophils: [...] disease) (ICD-10 - I25.10) [facility] 01/11/2025: Moderate heavily calcified triple vessel coronary artery disease Follows with [facility] Cardiology. Current plans are to treat medically. 04/18/2025 Macrocytic anemia (ICD-10 - D53.9) Review of past labs @ [facility] note a slight decrease in Hb with [...] Decrease calories, increase activity. Plan Of Treatment Next Appt Details Provider Name:Perfecto De Souza, 06/04/2025 03:00:00 PM, [address] [place], [address], Insurance Providers Payer Name Payer Address Payer Phone Subscriber Number Group Number Insured Name Patient Relationship to Insured Coverage Start Date Coverage End Date [employer] [address] [place] [address] [id number] Nazario Waddell Self - patient is the insured MEDICAID [place] 2ND INS [address] [place], [place] [id number] Nazario Waddell Self - patient is the insured Medical (General) History Medical History History ICD Code COPD (chronic obstructive pulmonary dise ase) J44.9 Chronic respiratory failure with hypoxia J96.11 CAD (coronary artery disease) I25.10 KAROL (obstructive sleep apnea) G47.33 HLD (hyperlipidemia) E78.5 HTN (hypertension) I10 Seizure disorder, primary G40.909 Depression F32.A Nasal septal deviation J34.2 Degenerative lumbar spinal stenosis M48. 061 Bladder cancer C67.9 Malignant neoplasm of mediastinum, part unspecified C38.3 Peripheral eosinophilia D72.19 Macrocytic anemia D53.9 Morbid obesity E66.01 History of tobacco abuse Z87.891 Surgical History Surgery Date(Month/Year) cataract removal cholecystectomy EGD shoulder surgery-left foot surgery-bilateral Cardiac Catheterization 01/11/2025 cervical fusion/laminectomy lymph node resection carpal tunnel release chest wall biopsy lung resection-right Hospitalization History Reason Date(Month/Year) Acute Respiratory Failure with hypoxia-T 03/24/2025
--- OUTSIDE RECORDS SUMMARY | 2025-06-02 21:30 | XMS_ITS | Encounter Summary ---
Author Organization [facility] Address [address] [place] [address] Care Team Providers Care Biometric Fingerprinting Technician Name Role Phone Jignesh Manjarrez MD Primary Care Provider [phone] Encounter Details Date Type Department Care Team (Late st Contact Info) Description 07/30/2024 Abstract [facility] [address] [place] [address] Jignesh Manjarrez MD [address] [place] [address] Social History Tobacco Use Types Packs/Day Years [...] often do you attend chur ch or yarsanism services? More than 4 times per year 12/14/2023 Do you belong to any clubs o r organizations such as jain groups, unions, fraternal or athletic groups, or [...] Recorded Patient Health Questionnaire-2 Score 0 [facility] Answer Date [...] Office Visit [facility] [address] [place] [address] Jignesh Manjarrez MD [address] [place] [address] documented as of this encounter Visit Diagnoses Not on filedocumented in this encounter Additional Health Concerns Assessment Noted Time PHQ-9 Depression Total Score: 8 11/29/19 1:28 PM EST documented as of this encounter Care Teams Biometric Fingerprinting Technician Relationship Specialty Start Date End Date Jignesh Manjarrez MD [address] [place] [address] PCP - General Family Medicine 12/15/23 documented as of this encounter
--- OUTSIDE RECORDS SUMMARY | 2025-06-02 21:30 | XMS_ITS | Encounter Summary ---
Author Organization [facility] Address [address] [place] [address] Care Team Providers Care Gas Engine Repairer Name Role Phone Jignesh Manjarrez MD Primary Care Provider [phone] Encounter Details Date Type Department Care Team (Late st Contact Info) Description 05/16/2025 Results Follow-Up [facility] [address] [place] [address] Jignesh Manjarrez MD [address] [place] [address] Social History Tobacco Use Types Packs/Day Years [...] How often do you attend chur or christian services? More than 4 times per year 01/15/2025 Do you belong to any clubs o r organizations such as faith groups, unions, fraternal or athletic groups, or [...] Recorded Patient Health Questionnaire-2 Score 2 11/22/2024 [facility] Occupat ion[facility] Health - Occupational Stress Questionnaire Answer Date [...] a group home (including now)? No 12/14/2023 Housing Stability Vital Sign Answer Trent e Recorded In the last 12 months, was t here a time when you were not able to pay the mortgage or rent on time? No 01/15/2025 Number of Times Moved in the Last Year Not on fi le 01/15/2025 At any time in the [facility], were you homeless or living in a group home (including now)? No 01/15/2025 Sex and Gender [...] Office Visit [facility] [address] [place] [address] Jignesh Manjarrez MD [address] [place] [address] documented as of this encounter Visit Diagnoses Not on filedocumented in this encounter Additional Health Concerns Assessment Noted Time PHQ-9 Depression Total Score: 5 11/22/19 25 3:00 PM EST documented as of this encounter Care Teams Gas Engine Repairer Relationship Specialty Start Date End Date Jignesh Manjarrez MD [address] [place] [facility] [place] [address] PCP - General Family Medicine 12/15/23 documented as of this encounter
--- OUTSIDE RECORDS SUMMARY | 2025-06-02 21:30 | XMS_ITS | Encounter Summary ---
Author Organization [employer] Address [id number] [address] [place] [address] Care Team Providers Care Shift Leader Name Role Phone Jose Marie DO Primary Care Provider Reason for Visit * Reason Comments Med Refill Encounter Details Date Type Department Care Team (Late st Contact Info) Description 08/30/2022 Refill [facility] Internal [facility] - Family Medicine [address] [place] [address] Jose Marie DO [address], [facility] [place] [address] Social History Tobacco Use Types Packs/Day Years [...] on filedocumented in this encounter Care Teams Shift Leader Relationship Specialty Start Date End Date Jose Maire DO [address] [facility], [place] [address] PCP - General Family Medicine 11/17/23 06/11/24 documented as of this encounter
--- OUTSIDE RECORDS SUMMARY | 2025-06-02 21:31 | XMS_ITS | Encounter Summary ---
Author Organization [facility] Address [address] [place] [address] Care Team Providers Care Assembler Tester Name Role Phone Jignesh Manjarrez MD Primary Care Provider [phone] Encounter Details Date Type Department Care Team (Late st Contact Info) Description 05/16/2024 Orders Only [facility] [address] [place] [address] Unallocated, Noms Provider, [address] [place], [place] [id number] Social History Tobacco Use Types Packs/Day Years [...] often do you attend chur ch or christian services? More than 4 times per year 12/14/2023 Do you belong to any clubs o r organizations such as hindu groups, unions, fraternal or athletic groups, or [...] Recorded Patient Health Questionnaire-2 Score 0 01/11/2024 [facility] Questionnaire Answer Date Recorded [...] in a long-term (including now)? No 12/14/2023 Sex and Gender [...] Office Visit [facility] [address] [place] [address] Jignesh Manjarrez MD [address] [place] [address] documented as of this encounter Procedures Procedure Name Priority Date/Time Associated Diagnosis Comments XR ELBOW 3+ VIEWS LEFT Routine 05/16/2024 12:26 PM EDT documented in this encounter Results * XR ELBOW 3+ VIEWS LEFT (05/16/2024 12:26 PM EDT) Anatomical Region Laterality Modality Radiographic Kizzy ging us [facility] Provider Unallocated MD GUAMAN XR PROCEDURES F inal Result documented in this encounter Visit Diagnoses Not on filedocumented in this encounter Additional Health Concerns Assessment Noted Time PHQ-9 Depression Total Score: 8 11/29/19 24 1:28 PM EST documented as of this encounter Care Teams Assembler Tester Relationship Specialty Start Date End Date Jignesh Manjarrez MD [address] [place] [address] PCP - General Family Medicine 12/15/23 documented as of this encounter
--- OUTSIDE RECORDS SUMMARY | 2025-06-02 21:31 | XMS_ITS | Patient Health Record ---
Author Organization [facility] Address [address] [place] [address] Care Team Providers Care Educational Interpreter Name Role Phone ChloemickyJignesh Primary Care Provider Scott hawley Dirk Galvez [facility] [phone] Allergies Allergen (clinical drug ingredient) Drug/Non Drug Allergy documented on EMR Reaction Allergy Type Onset Date Status phenytoin Dilantin Unknown Drug Allergy Active gabapentin gabapentin Unknown Drug Allergy Activ e oxyCODONE Unknown Drug Allergy Active Reason For Referral No Information Social History Tobacco Use: Social History Observation Description Date Details (start date - stop date) Never Smoker NA - NA AUDIT-C (Standard) Question Answer Notes Did you have a drink containing alcohol in the p ast year? No Points 0 Interpretation Negative Tobacco Control (Standard) Question Answer Notes Tobacco use: Nonsmoker Problems Problem Type SNOMED Code ICD Code Onset Dates Problem Status W/U Status Risk Notes Problem [id number] Closed fracture of right tibial plateau, initial encounter (S82.141A) Active confirmed Vital Signs Height 6'1 in 12/03/2024 Weight 296 lbs 12/03/2024 BMI 39.05 12/03/2024 Encounters Encounter Location Date Provider Diagnosis [facility] Office [address] [place] [address] [place] [address] 12/03/2024 Dirk Galvez Closed fracture of right tibial plateau, initial encounter S82.141A Assessments Encounter Date Diagnosis (ICD Code) Assessment Notes Treatment Notes Treatment Clinical Notes Section Notes 12/03/2024 Closed fracture of right tibial plateau, initial encounter (ICD-10 - S82.141A) 12/03/2024 Other For his medial tibial plateau fracture I recommended nonweightbearing. At baseline he uses a walker and has a history of a severe injury to the contralateral extremity with a tibiotalar fusion. He will follow-up in 1 month to repeat x-rays of his knee and reassess his progress. Import medication Plan Of Treatment No Information Insurance Providers Payer Name Payer Address Payer Phone Subscriber Number Group Number Insured Name Patient Relationship to Insured Coverage Start Date Coverage End Date Medicare [employer] [address] [place] [address] [id number] GÓMEZ CORTES Self - patient is the insured [facility] [address] [place] [address] [id number] GÓMEZ CORTES Self - patient is the insured Medical (General) History Medical History History ICD Code Cancer Seizures Stroke Depression Sleep apnea CPAP Machine: Yes Do you use the CPAP machine? Yes Drug Allergies
--- OUTSIDE RECORDS SUMMARY | 2025-06-02 21:31 | XMS_ITS | Encounter Summary ---
Author Organization [facility] Address [address] [place] [address] Care Team Providers Care Calender Runner Name Role Phone Jginesh Manjarrez MD Primary Care Provider [phone] Encounter Details Date Type Department Care Team (Late st Contact Info) Description 05/28/2024 Orders Only [facility] [address] [place] [address] Dhaval Shahid MD [address] [place], [place] [id number] Social History Tobacco Use Types Packs/Day Years [...] often do you attend chur ch or bahai services? More than 4 times per year [...] Recorded Patient Health Questionnaire-2 Score 0 01/11/2024 [facility] of Occupat ional [facility] - Occupational Stress Questionnaire Answer Date [...] Office Visit [facility] [address] [place] [address] Jignesh Manjarrez MD [address] [place] [address] documented as of this encounter Procedures Procedure Name Priority Date/Time Associated Diagnosis Comments XR RIBS 2 VIEWS LEFT Routine 05/24/2024 4:21 PM EDT documented in this encounter Results * XR RIBS 2 VIEWS LEFT (05/24/2024 4:21 PM EDT) Anatomical Region Laterality Modality Radiographic Kizzy ging us Dhaval Shahid MD IMG XR PROCEDURES Final Res ult documented in this encounter Visit Diagnoses Not on filedocumented in this encounter Additional Health Concerns Assessment Noted Time PHQ-9 Depression Total Score: 8 01/09/20 24 1:28 PM EST documented as of this encounter Care Teams Calender Runner Relationship Specialty Start Date End Date Jignesh Manjarrez MD [address] [place] [address] PCP - General Family Medicine 12/15/23 documented as of this encounter
--- OUTSIDE RECORDS SUMMARY | 2025-06-02 21:31 | XMS_ITS | Encounter Summary ---
Author Organization [facility] Address [address] [facility] [place] [address] Care Team Providers Care Patternmaker Hand Name Role Phone Jignesh Manjarrez MD Primary Care Provider [phone] Jignesh Manjarrez MD Primary Care Provider Carlos Gonzáles LPN Unavailable Unavailable Encounter Details Date Type Department Care Team (Late st Contact Info) Description 05/20/2023 Abstract [facility] [address] [place] [address] Marquise Ratliff, ANNABELLE [address] [place] [address] Social History Tobacco Use Types Packs/Day Years Used Date Smoking Tobacco: Former Cigarettes Q uit: 04/18/1997 Smokeless Tobacco: Never Alcohol Use Standard Drinks/Week Comments Never 0 (1 standard drink = 0.6 oz pur e alcohol) Sex and Gender Information Value Date Recorded Sex Assigned at Not on file Legal Sex Male 11:16 PM EDT Gender Identity Not on file Sexual Orientation Not on file COVID-19 Exposure Response Date Recorded In the last 10 days, have yo u been in contact with someone who was confirmed or suspected to have Coronavirus/COVID-19? No / Unsure 05/11/2023 3:26 PM EDT documented as of this encounter Plan of Treatment Upcoming Encounters Date Type Department Care Team (Late st Contact Info) Description 08/28/2025 1:00 PM EDT Office Visit [facility] [address] [place] [address] Jignesh Manjarrez MD [address] [place] [address] documented as of this encounter Visit Diagnoses Not on filedocumented in this encounter Care Teams Patternmaker Hand Relationship Specialty Start Date End Date Jignesh Manjarrez MD PCP - General Cardiology 04/13/23 12/14/23 Jignesh Manjarrez MD [address] [place] [address] PCP - General Family Medicine 12/15/23 Carlos Gonzáles LPN Licensed Practical Nurse Family Medicine 03/12/24 documented as of this encounter
--- OUTSIDE RECORDS SUMMARY | 2025-06-02 21:31 | XMS_ITS | Encounter Summary ---
Author Organization [facility] Address [address] [place] [address] Care Team Providers Care Airport Operations Officer Name Role Phone Jignesh Manjarrez MD Primary Care Provider [phone] Encounter Details Date Type Department Care Team (Late st Contact Info) Description 04/04/2024 Clinisync Result Encounter [facility] External Department Unsolicited Shaikh Lerma MD [address] [place] [address] Social History Tobacco Use Types Packs/Day Years [...] often do you attend chur ch or caodaism services? More than 4 times per year 12/14/2023 Do you belong to any clubs o r organizations such as gnosticist groups, unions, fraternal or athletic groups, or [...] Recorded Patient Health Questionnaire-2 Score 0 01/11/2024 [facility] Questionnaire Answer Date [...] 08/28/2025 1:00 PM EDT [facility] [address] [place] [address] Jignesh Manjarrez MD [address] [place] [address] documented as of this encounter Procedures Procedure Name Priority Date/Time Associated Diagnosis Comments NM AJIT PERF SPECT REST STR 04/04/2024 1:01 PM EDT documented in this encounter Results * NM AJIT PERF SPECT REST STR (04/04/2024 1:01 PM EDT) Anatomical Region Laterality Modality Other 04/04/2024 1:01 PM EDT Narrative 04/04/2024 1:01 PM EDT The [address] [address] Nuclear Medicine Report Signed Patient: NAZARIO CORTES MR#: [id number] : 1955 Acct:[id number] Age/Sex: 69 / M ADM Date: 03/27/24 Loc: [place] Attending Dr: Shaikh Florentin Guzman Ordering Physician: Shaikh Thomas Lerma Date of Service: 03/27/24 Procedure(s): NM ajit perf SPECT rest str Accession Number(s): [id number] cc: Shaikh Thomas Lerma; Jignesh Manjarrez M.D. Patient Name: NAZARIO CORTES MR#: [id number] : 1955 Exam Date: 03/27/2024 Ordering Doctor: Shaikh Nathalie Lerma . RADIOLOGY REPORT PROCEDURE: NM AJIT PERF SPECT REST STR COMPARISON: None. INDICATIONS: CHEST PAIN TECHNIQUE: Exam Description: Stress/Rest two day protocol gated SPECT Rest Imagin.5 mCi Tc-99m Cardiolite IV on 03/27/2024 Stress Imaging 26.7 mCi Tc-99m Cardiolite IV on 04/03/2024 Exercise Protocol: 0.4 mg Lexiscan given IV Heart Rate (bpm): Rest: 75 Max: 88 PMHR: 58 Blood Pressure: Rest: 136/70 Max: 138/72 Symptoms: Rest and peak stress ECG findings were normal and the exercise portion of the study was normal per attending physician Dr. Montgomery . For more details please see separate cardiac stress test report. FINDINGS: QUALITY OF STUDY: Good. PERFUSION DEFECT: None. LOCATION: N/A SIZE: N/A. SEVERITY: N/A. TYPE: N/A. WALL MOTION: Normal. LV SIZE: Normal. 85 mL. TID / TCD: None; 1.1 LVEF: Normal. Calculated EF 71%. SUMMARY: Myocardial perfusion imaging study is NORMAL. CONCLUSION: 1. Normal myocardial perfusion scan 2. Normal exercise test Dictated by: Desmond Husain MD on 04/04/2024 at 12:37 Approved by: Desmond Husain MD on 04/04/2024 at 13:01 Dictated By: Desmond Husain M.D. Signed By: 04/04/24 1301 DD/ 1301 TD/TT: Disbursement Clerk: Procedure Note Radiology, Radiologist, - 04/04/2024 [place] [address] Nuclear Medicine Report Signed Patient: NAZARIO CORTES EMR#: [id number] : 5Acct:[id number] Age/Sex: 69 / MADM Date: 03/27/24 Loc: [place] Attending Dr: Shaikh Florentin Guzman Ordering Physician: Shaikh Thomas Lerma Date of Service: 03/27/24 Procedure(s): NM ajit perf SPECT rest str Accession Number(s): [id number] cc: Shaikh Thomas Lerma; Jignesh Manjarrez M.D. Patient Name: NAZARIO CORTES MR#: [id number] : 1955 Exam Date: 03/27/2024 Ordering Doctor: Shaikh Nathalie Hopkins RADIOLOGY REPORT PROCEDURE: NM AJIT PERF SPECT REST STR COMPARISON: None. INDICATIONS: CHEST PAIN TECHNIQUE: Exam Description: Stress/Rest two day protocol gated SPECT Rest Imagin.5 mCi Tc-99m Cardiolite IV on 03/27/2024 Stress Imaging 26.7 mCi Tc-99m Cardiolite IV on 04/03/2024 Exercise Protocol: 0.4 mg Lexiscan given IV Heart Rate (bpm): Rest: 75 Max: 88 PMHR: 58 Blood Pressure: Rest: 136/70 Max: 138/72 Symptoms: Rest and peak stress ECG findings were normal and the exercise portion ofthe study was normal per attending physician Dr. Montgomery . For more detailsplease see separate cardiac stress test report. FINDINGS: QUALITY OF STUDY: Good. PERFUSION DEFECT: None. LOCATION: N/A SIZE: N/A. SEVERITY: N/A. TYPE: N/A. WALL MOTION: Normal. LV SIZE: Normal. 85 mL. TID / TCD: None; 1.1 LVEF: Normal. Calculated EF 71%. SUMMARY: Myocardial perfusion imaging study is NORMAL. CONCLUSION: 1. Normal myocardial perfusion scan 2. Normal exercise test Dictated by: Desmond Husain MD on 04/04/2024 at 12:37 Approved by: Desmond Husain MD on 04/04/2024 at 13:01 Dictated By: Desmond Husain M.D. Signed By:04/04/24 1301 DD/ 1301 TD/TT: Disbursement Clerk: us Shaikh Florentin [facility] Final Result documented in this encounter Visit Diagnoses Not on filedocumented in this encounter Additional Health Concerns Assessment Noted Time PHQ-9 Depression Total Score: 8 11/29/19 24 1:28 PM EST documented as of this encounter Care Teams Airport Operations Officer Relationship Specialty Start Date End Date Jignesh Manjarrez MD [address] [place] [address] PCP - General Family Medicine 12/15/23 documented as of this encounter
--- OUTSIDE RECORDS SUMMARY | 2025-06-02 21:31 | XMS_ITS | Encounter Summary ---
Author Organization [facility] Address [address] [place] [address] Care Team Providers Care Powder Room Attendant Name Role Phone Jignesh Manjarrez MD Primary Care Provider Encounter Details Date Type Department Care Team (Late st Contact Info) Description 05/01/2024 Orders Only [facility] [address] [place] [address] Elmira Mendez DO Social History Tobacco Use Types Packs/Day [...] often do you attend chur ch or mandaeism services? More than 4 times per year 12/14/2023 Do you belong to any clubs o r organizations such as muslim groups, unions, fraternal or athletic groups, or [...] Recorded Patient Health Questionnaire-2 Score 0 01/11/2024 [facility] of Occupat ional [facility] - Occupational Stress Questionnaire Answer Date Recorded [...] place to sleep or slept in a correction (including now)? No 12/14/2023 Sex and Gender Information Value Date Recorded Sex Assigned at Not on file Legal Sex Male 11:16 PM EDT Gender Identity Not on file Sexual Orientation Not on file documented as of this encounter Plan of Treatment Upcoming Encounters Date Type Department Care Team (Late st Contact Info) Description 08/28/2025 1:00 PM EDT Office Visit [facility] [address] [place] [address] Jignesh Manjarrez MD [address] [place] [address] documented as of this encounter Procedures Procedure Name Priority Date/Time Associated Diagnosis Comments TITRATION STUDY Routine 05/01/2024 4:19 PM EDT documented in this encounter Results * Titration Study (05/01/2024 4:19 PM EDT) Elmira Mendez DO [facility] ORDERABLES Final R esult documented in this encounter Visit Diagnoses Not on filedocumented in this encounter Additional Health Concerns Assessment Noted Time PHQ-9 Depression Total Score: 8 11/29/19 24 1:28 PM EST documented as of this encounter Care Teams Powder Room Attendant Relationship Specialty Start Date End Date Jignesh Manjarrez MD [address] [place] [address] PCP - General Family Medicine 12/15/23 documented as of this encounter
--- NOTE | 2025-06-02 21:32 | XR_ITS ---
The [address] [address] Patient Name: GÓMEZ CORTES MRN: [id number] date: 1955 Sex: M Assigned Patient Location: ED.MAIN Current Patient Location: [place] Accession/Order Number: [id number] Exam Date: 06/03/2025 08:58 Report Date: 06/03/2025 09:01 At the request of: ANSHU BOONE NP Procedure: XR chest 1V PORTABLE AP ERECT CHEST 2148 hours CLINICAL HISTORY: Shortness of breath and fever COMPARISON: 04/14/2025 Evaluation is slightly limited by large body habitus. The cardiac and mediastinal contours are similar. Multiple hemostasis clips are again visualized in the right perihilar region. There is coarsening of interstitial markings on both sides. There is pleural parenchymal opacity blunting the right lateral costophrenic angle, also noted on the comparison. No pneumothorax is identified. The bony structures are osteopenic. There is a screw at the glenoid on the left. There is lower cervical fusion plate. XR/XR chest 1V IMPRESSION: SIMILAR FINDINGS TO THE COMPARISON STUDY. Impression dictated by: Hoa Lockwood M.D. 06/03/2025 9:01 AM Dictation Location: [place] [address] Electronically authenticated by: [id number] Y Date: 06/03/2025 09:01
--- NOTE | 2025-06-02 21:34 | ED.GENADUL1 ---
Documented by User: Bipin Escalera NP 06/02/25 21:37 HPI HPI - General Adult General Chief complaint: Shortness of Breath/Dyspnea Stated complaint: SOB Time Seen by Provider: 06/02/25 21:30 Source: patient Mode of arrival: ambulance Limitations: no limitations History of Present Illness HPI narrative: Patient is a 70-year-old male from home who presents to the ER today for evaluation concerns for shortness of breath and cough/cold symptoms. He endorses since 05/31 has had a cough/cold symptoms. He does endorse a history of COPD and is on 2 L nasal cannula at baseline. Per EMS he was noted to have saturations of 88 to 89% on the 2 L and was subsequently placed to 4 L for transport. He denies any chest pain. No fevers. Has any abdominal pain but does endorse some nausea without vomiting. No diarrhea. Related Data Home Medications ?Medication ?Instructions ?Recorded ?Confirmed atorvastatin 10 mg tablet 10 mg PO .hs 05/12/23 06/02/25 citalopram 40 mg tablet 40 mg PO DAILY 05/12/23 06/02/25 phenytoin sodium extended 100 mg 200 mg PO TID 05/12/23 06/02/25 capsule furosemide 40 mg tablet 40 mg PO DAILY PRN edema 05/24/24 06/02/25 nitroglycerin 0.3 mg sublingual 0.3 mg sublingual Q5M PRN chest 05/24/24 03/24/25 tablet pain psyllium husk 0.4 gram capsule 0.4 g PO DAILY 12/04/24 06/02/25 (Daily Fiber) aspirin 81 mg tablet,delayed 81 mg PO DAILY 01/09/25 06/02/25 release (Adult Low Dose Aspirin) albuterol sulfate 90 mcg/actuation 2 inh inhalation Q4H PRN shortness 02/21/25 06/02/25 aerosol inhaler of breath or wheezing fluticasone propionate 50 2 spray intranasal DAILY 02/21/25 06/02/25 mcg/actuation nasal spray,suspension metoprolol succinate 25 mg 25 mg PO DAILY 02/21/25 06/02/25 tablet,extended release 24 hr spironolactone 25 mg tablet 25 mg PO DAILY 02/21/25 06/02/25 phenobarbital 32.4 mg tablet 64.8 mg PO TID 03/24/25 06/02/25 triamcinolone acetonide 0.5 % 1 applic topical TID 03/24/25 06/02/25 topical cream meclizine 25 mg tablet mg 06/02/25 omeprazole 40 mg capsule,delayed mg 06/02/25 release umeclidinium 62.5 mcg/actuation inhalation 06/02/25 blister powder for inhalation (Incruse Ellipta) Previous Rx's ?Medication ?Instructions ?Recorded azithromycin 250 mg tablet 250 mg PO DAILY 3 days #3 tabs 03/27/25 prednisone 20 mg tablet 20 mg PO BID 5 days #10 tabs 03/27/25 tiotropium bromide 18 mcg capsule 1 cap inhalation DAILY 30 days #30 03/27/25 with inhalation device (Spiriva caps with HandiHaler) azithromycin 500 mg tablet See Rx Instructions PO .COMPLEX #6 04/14/25 (Zithromax TRI-REMI) tabs benzonatate 100 mg capsule 100 mg PO Q6H PRN cough #20 caps 04/14/25 prednisone 20 mg tablet 60 mg (3 x 20 mg) PO DAILY 5 days 04/14/25 #15 tabs Allergies Allergy/AdvReac Type Severity Reaction Status Date / Time oxycodone (From OxyContin) Allergy Severe Anaphylaxis Verified 06/02/25 21:32 gabapentin Allergy Unknown Unknown Verified 06/02/25 21:32 Opioid HPI Opioid Management Most Recent Opioid Data: Last Pain Scale 4 03/09/25, 22:00 Last Pain Intensity 0 03/08/25, 10:45 Last MAR Pain Assessment 06/02/25, 22:25 Last ORT Total Score 0 03/24/25, 23:22 Last ORT Risk Category Low Risk 03/24/25, 23:22 Review of Systems ROS Status of ROS 10 or more systems reviewed and unremarkable except as noted in history and below [facility] Medical History Right lower lobe pneumonia ?J18.9 - Pneumonia, unspecified organism (ICD-10) Essential (primary) hypertension ?I10 - Essential (primary) hypertension (ICD-10) Seizure disorder ?G40.909 - Epilepsy, unspecified, not intractable, without status epilepticus (ICD-10) CAD (coronary artery disease) ?I25.10 - Atherosclerotic heart disease of [place] coronary artery without angina pectoris (ICD-10) Cervical vertebral fusion ?M43.22 - Fusion of spine, cervical region (ICD-10) Lipoma of axilla ?D17.20 - Benign lipomatous neoplasm of skin and subcutaneous tissue of unspecified limb (ICD-10) Rupture, tendon, Achilles ?S86.019A - Strain of unspecified Achilles tendon, initial encounter (ICD-10) Syncope ?R55 - Syncope and collapse (ICD-10) Seizure ?R56.9 - Unspecified convulsions (ICD-10) Malignant neoplasm of mediastinum ?C38.3 - Malignant neoplasm of mediastinum, part unspecified (ICD-10) Depression ?F32.A - Depression, unspecified (ICD-10) Dyslipidemia ?E78.5 - Hyperlipidemia, unspecified (ICD-10) Deviated nasal septum ?J34.2 - Deviated nasal septum (ICD-10) Degenerative lumbar spinal stenosis ?M48.061 - Spinal stenosis, lumbar region without neurogenic claudication (ICD-10) 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 - Drug-induced polyneuropathy (ICD-10) ?T45.1X5A - Adverse effect of antineoplastic and immunosuppressive drugs, initial encounter (ICD-10) CAD, multiple vessel ?I25.10 - Atherosclerotic heart disease of [place] coronary artery without angina pectoris (ICD-10) 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 - Malignant neoplasm of mediastinum, part unspecified (ICD-10) Bladder cancer ?C67.9 - Malignant neoplasm of bladder, unspecified (ICD-10) HLD (hyperlipidemia) ?E78.5 - Hyperlipidemia, unspecified (ICD-10) Chest pain ?R07.9 - Chest pain, unspecified (ICD-10) Surgical History History of cataract surgery ?Z98.49 - Cataract extraction status, unspecified eye (ICD-10) History of foot surgery ?Z98.890 - Other specified postprocedural states (ICD-10) History of esophagogastroduodenoscopy (EGD) ?Z98.890 - Other specified postprocedural states (ICD-10) History of colonoscopy ?Z98.890 - Other specified postprocedural states (ICD-10) History of neck surgery ?Z98.890 - Other specified postprocedural states (ICD-10) H/O shoulder surgery ?Z98.890 - Other specified postprocedural states (ICD-10) History of cholecystectomy ?Z90.49 - Acquired absence of other specified parts of digestive tract (ICD-10) Family History Father Family history of myocardial infarction Sister Family history of cancer Other Family history of coronary artery disease Family history of diabetes mellitus Family history of gastric cancer Family history of heart disease Family history of hypertension Family history of kidney cancer Family history of stroke Social History Within the past year, how often did you have a drink containing alcohol: never Score interpretation: A score less than 4 is consistent with normal alcohol consumption. Smoking status: Former smoker Non-prescribed substance use: denies use Previous occupational history: retired Highest level of school completed/degree received: high school graduate Are you now , , , , never or living with a partner: In a typical week, how many times do you talk on the telephone with family, friends, or neighbors: 3 or more times per week How often do you get together with friends or relatives: 3 or more times per week Little interest or pleasure in doing things: not at all Feeling down, depressed, or hopeless: not at all Feel stressed/tense/nervous/anxious/difficulty sleeping: to some extent Life stressors: other Life stressor details: health Gender Identity: male Exam Narrative Exam Narrative: Constituational: Awake/ alert, no apparent distress, well hydrated HENMT: normocephalic, external ears normal, moist oral mucous membranes and oropharynx normal Eyes: EOMI and conjunctivae normal Neck: ROM intact Chest: inspection of chest normal Respiratory: + Intermittent/mild congested cough, normal respiratory effort, clear to auscultation bilaterally with fair aeration throughout Cardio: regular rate and regular rhythm GI: soft to palpation and non-tender Back: nontender MSK: ROM intact, +NVI Skin: no rashes or petechiae Neuro: no focal deficits Psych: mental status grossly normal Constitutional Vital Signs, click to edit/add: Last Vital Signs Temp 100.6 F H 06/03/25 00:24 Pulse 81 06/02/25 22:49 Resp 19 06/03/25 00:24 BP 92/57 06/03/25 00:24 Pulse Ox 93 L 06/03/25 00:24 O2 Del Method Nasal Cannula 06/02/25 22:49 O2 Flow Rate 2 06/02/25 22:49 Course Vital Signs Vital signs: Vital Signs Temperature 101.8 F H 06/02/25 21:27 Pulse Rate 84 06/02/25 21:27 Respiratory Rate 20 06/02/25 21:27 Blood Pressure 154/89 H 06/02/25 21:27 Pulse Oximetry 96 06/02/25 21:27 Oxygen Delivery Method Nasal Cannula 06/02/25 21:27 Oxygen Delivery Flow Rate 4 06/02/25 21:27 Temperature 100.6 F H 06/03/25 00:24 Pulse Rate 81 06/02/25 22:49 Respiratory Rate 19 06/03/25 00:24 Blood Pressure 92/57 06/03/25 00:24 Pulse Oximetry 93 L 06/03/25 00:24 Oxygen Delivery Method Nasal Cannula 06/02/25 22:49 Oxygen Delivery Flow Rate 2 06/02/25 22:49 Medical Decision Making MDM Narrative Medical decision making narrative: Patient is a mildly ill and fatigued appearing 70-year-old male who presented to the emergency department today for evaluation concerns for cough/cold symptoms and noted with acute on chronic hypoxic respiratory failure with saturations of 88 to 89% on his baseline 2 L per EMS. Patient was transported to the ER on 4 L and was noted to have appropriate oxygen saturations at this flow rate. Initial examination patient with clinical evidence of URI. He was noted to be febrile. He is otherwise not in any respiratory distress. He does not appear to be exhibiting any ischemic symptoms and does appear volume compensated on exam. Care endorsed to oncoming provider Dr. Lydia erwin to further patient's care and follow-up on pending imaging and lab results and further determine disposition of patient. Medical Records Medical records reviewed: Yes I reviewed the patient's medical records Lab Data Labs: Lab Results 06/02/25 Range/Units 21:52 WBC 6.7 (4.0-11.0) 10^3/uL RBC 4.12 L (4.70-6.10) 10^6/uL Hgb 14.0 (14.0-18.0) g/dL Hct 42.0 (42.0-54.0) % MCV 101.9 H (80.0-94.0) fL MCH 34.0 (25.9-34.0) pg MCHC 33.3 (29.9-35.2) g/dL RDW 14.0 (11.0-15.0) % Plt Count 146 L (150-450) 10^3/uL MPV 10.2 (9.5-13.5) fL Neut % (Auto) 66.7 (43.0-75.0) % Lymph % (Auto) 9.4 L (20.5-60.0) % Collin % (Auto) 14.6 H (1.7-12.0) % Eos % (Auto) 8.0 H (0.9-7.0) % Baso % (Auto) 0.9 (0.2-2.0) % Neut # (Auto) 4.5 (1.4-6.5) 10^3/uL Lymph # (Auto) 0.6 L (1.2-3.8) 10^3/uL Collin # (Auto) 1.0 H (0.3-0.8) 10^3/uL Eos # (Auto) 0.5 (0.0-0.7) 10^3/uL Baso # (Auto) 0.1 (0.0-0.1) 10^3/uL Abs Immat Gran (auto) 0.03 (0.00-0.03) 10^3/uL Imm/Tot Granulo (auto) 0.4 (0.0-0.5) % D-Dimer 0.37 (<=0.59) mg/L FEU Sodium 138 (136-145) mmol/L Potassium 4.2 (3.5-5.1) mmol/L Chloride 100 (98-107) mmol/L Carbon Dioxide 30.2 (21.0-32.0) mmol/L Anion Gap 12.0 BUN 17.0 (7.0-18.0) mg/dL Creatinine 0.85 (0.70-1.30) mg/dL Est GFR ( Amer) >60 (>=60 mL/min/1.73m^2) Est GFR (Non-Af Amer) >60 (>=60 mL/min/1.73m^2) BUN/Creatinine Ratio 20.0 Glucose 96 (74-106) mg/dL Lactate 2.1 H* (0.4-2.0) mmol/L Calcium 8.6 (8.5-10.1) mg/dL Total Bilirubin 0.3 (0.2-1.0) mg/dL AST 31 (15-37) U/L ALT 27 (16-63) U/L Alkaline Phosphatase 156 H (46-116) U/L Troponin I High Sens 6.5 (4.0-76.1) pg/mL NT-Pro-B Natriuret Pep 109.0 (<=900.0) pg/mL Total Protein 8.7 H (6.4-8.2) g/dL Albumin 3.3 L (3.4-5.0) g/dL Globulin 5.4 g/dL Albumin/Globulin Ratio 0.6 Discharge Plan Discharge Chief Complaint: Shortness of Breath/Dyspnea Clinical Impression: Acute exacerbation of chronic obstructive pulmonary disease, RLL pneumonia Patient Disposition: Admitted As Inpatient Time of Disposition Decision: 00:58 Condition: Fair Documented by User: Saira Freeman MD 06/03/25 00:58 HPI HPI - General Adult General Chief complaint: Shortness of Breath/Dyspnea Stated complaint: SOB Time Seen by Provider: 06/02/25 21:30 Related Data Home Medications ?Medication ?Instructions ?Recorded ?Confirmed atorvastatin 10 mg tablet 10 mg PO .hs 05/12/23 06/02/25 citalopram 40 mg tablet 40 mg PO DAILY 05/12/23 06/02/25 phenytoin sodium extended 100 mg 200 mg PO TID 05/12/23 06/02/25 capsule furosemide 40 mg tablet 40 mg PO DAILY PRN edema 05/24/24 06/02/25 nitroglycerin 0.3 mg sublingual 0.3 mg sublingual Q5M PRN chest 05/24/24 03/24/25 tablet pain psyllium husk 0.4 gram capsule 0.4 g PO DAILY 12/04/24 06/02/25 (Daily Fiber) aspirin 81 mg tablet,delayed 81 mg PO DAILY 01/09/25 06/02/25 release (Adult Low Dose Aspirin) albuterol sulfate 90 mcg/actuation 2 inh inhalation Q4H PRN shortness 02/21/25 06/02/25 aerosol inhaler of breath or wheezing fluticasone propionate 50 2 spray intranasal DAILY 02/21/25 06/02/25 mcg/actuation nasal spray,suspension metoprolol succinate 25 mg 25 mg PO DAILY 02/21/25 06/02/25 tablet,extended release 24 hr spironolactone 25 mg tablet 25 mg PO DAILY 02/21/25 06/02/25 phenobarbital 32.4 mg tablet 64.8 mg PO TID 03/24/25 06/02/25 triamcinolone acetonide 0.5 % 1 applic topical TID 03/24/25 06/02/25 topical cream meclizine 25 mg tablet mg 06/02/25 omeprazole 40 mg capsule,delayed mg 06/02/25 release umeclidinium 62.5 mcg/actuation inhalation 06/02/25 blister powder for inhalation (Incruse Ellipta) Previous Rx's ?Medication ?Instructions ?Recorded azithromycin 250 mg tablet 250 mg PO DAILY 3 days #3 tabs 03/27/25 prednisone 20 mg tablet 20 mg PO BID 5 days #10 tabs 03/27/25 tiotropium bromide 18 mcg capsule 1 cap inhalation DAILY 30 days #30 03/27/25 with inhalation device (Spiriva caps with HandiHaler) azithromycin 500 mg tablet See Rx Instructions PO .COMPLEX #6 04/14/25 (Zithromax TRI-REMI) tabs benzonatate 100 mg capsule 100 mg PO Q6H PRN cough #20 caps 04/14/25 prednisone 20 mg tablet 60 mg (3 x 20 mg) PO DAILY 5 days 04/14/25 #15 tabs Allergies Allergy/AdvReac Type Severity Reaction Status Date / Time oxycodone (From OxyContin) Allergy Severe Anaphylaxis Verified 06/02/25 21:32 gabapentin Allergy Unknown Unknown Verified 06/02/25 21:32 Opioid HPI Opioid Management Most Recent Opioid Data: Last Pain Scale 4 03/09/25, 22:00 Last Pain Intensity 0 03/08/25, 10:45 Last MAR Pain Assessment 06/02/25, 22:25 Last ORT Total Score 0 03/24/25, 23:22 Last ORT Risk Category Low Risk 03/24/25, 23:22 PFSH PFSH Medical History Right lower lobe pneumonia ?J18.9 - Pneumonia, unspecified organism (ICD-10) Essential (primary) hypertension ?I10 - Essential (primary) hypertension (ICD-10) Seizure disorder ?G40.909 - Epilepsy, unspecified, not intractable, without status epilepticus (ICD-10) CAD (coronary artery disease) ?I25.10 - Atherosclerotic heart disease of [place] coronary artery without angina pectoris (ICD-10) Cervical vertebral fusion ?M43.22 - Fusion of spine, cervical region (ICD-10) Lipoma of axilla ?D17.20 - Benign lipomatous neoplasm of skin and subcutaneous tissue of unspecified limb (ICD-10) Rupture, tendon, Achilles ?S86.019A - Strain of unspecified Achilles tendon, initial encounter (ICD-10) Syncope ?R55 - Syncope and collapse (ICD-10) Seizure ?R56.9 - Unspecified convulsions (ICD-10) Malignant neoplasm of mediastinum ?C38.3 - Malignant neoplasm of mediastinum, part unspecified (ICD-10) Depression ?F32.A - Depression, unspecified (ICD-10) Dyslipidemia ?E78.5 - Hyperlipidemia, unspecified (ICD-10) Deviated nasal septum ?J34.2 - Deviated nasal septum (ICD-10) Degenerative lumbar spinal stenosis ?M48.061 - Spinal stenosis, lumbar region without neurogenic claudication (ICD-10) 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 - Drug-induced polyneuropathy (ICD-10) ?T45.1X5A - Adverse effect of antineoplastic and immunosuppressive drugs, initial encounter (ICD-10) CAD, multiple vessel ?I25.10 - Atherosclerotic heart disease of [place] coronary artery without angina pectoris (ICD-10) 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 - Malignant neoplasm of mediastinum, part unspecified (ICD-10) Bladder cancer ?C67.9 - Malignant neoplasm of bladder, unspecified (ICD-10) HLD (hyperlipidemia) ?E78.5 - Hyperlipidemia, unspecified (ICD-10) Chest pain ?R07.9 - Chest pain, unspecified (ICD-10) Surgical History History of cataract surgery ?Z98.49 - Cataract extraction status, unspecified eye (ICD-10) History of foot surgery ?Z98.890 - Other specified postprocedural states (ICD-10) History of esophagogastroduodenoscopy (EGD) ?Z98.890 - Other specified postprocedural states (ICD-10) History of colonoscopy ?Z98.890 - Other specified postprocedural states (ICD-10) History of neck surgery ?Z98.890 - Other specified postprocedural states (ICD-10) H/O shoulder surgery ?Z98.890 - Other specified postprocedural states (ICD-10) History of cholecystectomy ?Z90.49 - Acquired absence of other specified parts of digestive tract (ICD-10) Family History Father Family history of myocardial infarction Sister Family history of cancer Other Family history of coronary artery disease Family history of diabetes mellitus Family history of gastric cancer Family history of heart disease Family history of hypertension Family history of kidney cancer Family history of stroke Social History Within the past year, how often did you have a drink containing alcohol: never Score interpretation: A score less than 4 is consistent with normal alcohol consumption. Smoking status: Former smoker Non-prescribed substance use: denies use Previous occupational history: retired Highest level of school completed/degree received: high school graduate Are you now , , , , never or living with a partner: In a typical week, how many times do you talk on the telephone with family, friends, or neighbors: 3 or more times per week How often do you get together with friends or relatives: 3 or more times per week Little interest or pleasure in doing things: not at all Feeling down, depressed, or hopeless: not at all Feel stressed/tense/nervous/anxious/difficulty sleeping: to some extent Life stressors: other Life stressor details: health Gender Identity: male Exam Constitutional Vital Signs, click to edit/add: Last Vital Signs Temp 100.6 F H 06/03/25 00:24 Pulse 81 06/02/25 22:49 Resp 19 06/03/25 00:24 BP 92/57 06/03/25 00:24 Pulse Ox 93 L 06/03/25 00:24 O2 Del Method Nasal Cannula 06/02/25 22:49 O2 Flow Rate 2 06/02/25 22:49 Course Vital Signs Vital signs: Vital Signs Temperature 101.8 F H 06/02/25 21:27 Pulse Rate 84 06/02/25 21:27 Respiratory Rate 20 06/02/25 21:27 Blood Pressure 154/89 H 06/02/25 21:27 Pulse Oximetry 96 06/02/25 21:27 Oxygen Delivery Method Nasal Cannula 06/02/25 21:27 Oxygen Delivery Flow Rate 4 06/02/25 21:27 Temperature 100.6 F H 06/03/25 00:24 Pulse Rate 81 06/02/25 22:49 Respiratory Rate 19 06/03/25 00:24 Blood Pressure 92/57 06/03/25 00:24 Pulse Oximetry 93 L 06/03/25 00:24 Oxygen Delivery Method Nasal Cannula 06/02/25 22:49 Oxygen Delivery Flow Rate 2 06/02/25 22:49 Medical Decision Making MDM Narrative Medical decision making narrative: Patient is a mildly ill and fatigued appearing 70-year-old male who presented to the emergency department today for evaluation concerns for cough/cold symptoms and noted with acute on chronic hypoxic respiratory failure with saturations of 88 to 89% on his baseline 2 L per EMS. Patient was transported to the ER on 4 L and was noted to have appropriate oxygen saturations at this flow rate. Initial examination patient with clinical evidence of URI. He was noted to be febrile. He is otherwise not in any respiratory distress. He does not appear to be exhibiting any ischemic symptoms and does appear volume compensated on exam. Care endorsed to oncoming provider Dr. Lydia erwin to further patient's care and follow-up on pending imaging and lab results and further determine disposition of patient. This patient was seen and evaluated in conjunction with the nurse practitioner. He presents for evaluation of increasing shortness of breath. He does wear nasal cannula [id number] but has recently had to increase his oxygen to keep up with his demands. He was transported emergency department on 4 L nasal cannula. He has had fevers, chills with cough and cold symptoms for the past several days. He states he has productive sputum with green phlegm. He denies any jim chest pain. He has diffuse expiratory wheezing. A septic workup was ordered due to his fever and dyspnea. His white count is normal at 6.7 with a stable hemoglobin of 14. Electrolytes are normal. D-dimer is normal. Alk phos is elevated at 156 the remainder of the liver function tests are normal. BNP is normal at 109. D-dimer is mildly elevated at 2.1. EKG done upon arrival is a rapid atrial rhythm at 83 bpm with a normal axis and no acute findings. Chest x-ray shows right lower lobe infiltrate/pneumonia. He was medicated with IV Rocephin and Zithromax for pneumonia. The case was discussed with the hospitalist and the patient is excepted for admission to Med/Surg. Lab Data Labs: Lab Results 06/02/25 Range/Units 21:52 WBC 6.7 (4.0-11.0) 10^3/uL RBC 4.12 L (4.70-6.10) 10^6/uL Hgb 14.0 (14.0-18.0) g/dL Hct 42.0 (42.0-54.0) % MCV 101.9 H (80.0-94.0) fL MCH 34.0 (25.9-34.0) pg MCHC 33.3 (29.9-35.2) g/dL RDW 14.0 (11.0-15.0) % Plt Count 146 L (150-450) 10^3/uL MPV 10.2 (9.5-13.5) fL Neut % (Auto) 66.7 (43.0-75.0) % Lymph % (Auto) 9.4 L (20.5-60.0) % Collin % (Auto) 14.6 H (1.7-12.0) % Eos % (Auto) 8.0 H (0.9-7.0) % Baso % (Auto) 0.9 (0.2-2.0) % Neut # (Auto) 4.5 (1.4-6.5) 10^3/uL Lymph # (Auto) 0.6 L (1.2-3.8) 10^3/uL Collin # (Auto) 1.0 H (0.3-0.8) 10^3/uL Eos # (Auto) 0.5 (0.0-0.7) 10^3/uL Baso # (Auto) 0.1 (0.0-0.1) 10^3/uL Abs Immat Gran (auto) 0.03 (0.00-0.03) 10^3/uL Imm/Tot Granulo (auto) 0.4 (0.0-0.5) % D-Dimer 0.37 (<=0.59) mg/L FEU Sodium 138 (136-145) mmol/L Potassium 4.2 (3.5-5.1) mmol/L Chloride 100 (98-107) mmol/L Carbon Dioxide 30.2 (21.0-32.0) mmol/L Anion Gap 12.0 BUN 17.0 (7.0-18.0) mg/dL Creatinine 0.85 (0.70-1.30) mg/dL Est GFR ( Amer) >60 (>=60 mL/min/1.73m^2) Est GFR (Non-Af Amer) >60 (>=60 mL/min/1.73m^2) BUN/Creatinine Ratio 20.0 Glucose 96 (74-106) mg/dL Lactate 2.1 H* (0.4-2.0) mmol/L Calcium 8.6 (8.5-10.1) mg/dL Total Bilirubin 0.3 (0.2-1.0) mg/dL AST 31 (15-37) U/L ALT 27 (16-63) U/L Alkaline Phosphatase 156 H (46-116) U/L Troponin I High Sens 6.5 (4.0-76.1) pg/mL NT-Pro-B Natriuret Pep 109.0 (<=900.0) pg/mL Total Protein 8.7 H (6.4-8.2) g/dL Albumin 3.3 L (3.4-5.0) g/dL Globulin 5.4 g/dL Albumin/Globulin Ratio 0.6 ECG Data Attestation: I personally reviewed and interpreted this ECG as follows: (Rapid atrial rhythm at 83 bpm, normal axis, normal intervals, no acute ST segment elevation or T wave inversion) Discharge Plan Discharge Chief Complaint: Shortness of Breath/Dyspnea Clinical Impression: Acute exacerbation of chronic obstructive pulmonary disease, RLL pneumonia Patient Disposition: Admitted As Inpatient Time of Disposition Decision: 00:58 Condition: Fair
--- NOTE | 2025-06-02 21:38 | ECG_ITS ---
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
[2025-06-02 22:16] LABS: Hematocrit 42.0 % (42.0-54.0); Hemoglobin 14.0 g/dL (14.0-18.0); Immature Granulocytes Abs Auto 0.03 10^3/uL (0.00-0.03); Immature Granulocytes Pct Auto 0.4 % (0.0-0.5); Lymphocytes Absolute Auto 0.6 10^3/uL (1.2-3.8); Mean Corpuscular HGB Conc 33.3 g/dL (29.9-35.2); Mean Corpuscular Hemoglobin 34.0 pg (25.9-34.0); Mean Corpuscular Volume 101.9 fL (80.0-94.0); Platelet Count 146 10^3/uL (150-450); Red Blood Count 4.12 10^6/uL (4.70-6.10); White Blood Count 6.7 10^3/uL (4.0-11.0)
[2025-06-02] MEDS: 0.9 % SODIUM CHLORIDE 1,000 ML 1000 ML IV (22:25)
[2025-06-02] MEDS: ACETAMINOPHEN 500 MG TABLET 1000 MG PO (22:25)
[2025-06-02 22:40] LABS: Alanine Aminotransferase 27 U/L (16-63); Albumin Globulin Ratio 0.6; Albumin Level 3.3 g/dL (3.4-5.0); Alkaline Phosphatase 156 U/L (46-116); Anion Gap 12.0; Aspartate Amino Transferase 31 U/L (15-37); Blood Urea Nitrogen 17.0 mg/dL (7.0-18.0); Calcium 8.6 mg/dL (8.5-10.1); Carbon Dioxide 30.2 mmol/L (21.0-32.0); Chloride 100 mmol/L (98-107); Estimated GFR (African America >60 (>=60 mL/min/1.73m^2); Estimated GFR (Non-African Ame >60 (>=60 mL/min/1.73m^2); Globulin 5.4 g/dL; Glucose 96 mg/dL (74-106); Potassium 4.2 mmol/L (3.5-5.1); Sodium 138 mmol/L (136-145); Total Protein 8.7 g/dL (6.4-8.2)
[2025-06-02 22:46] LABS: NT Pro B Type Natriuretic Pept 109.0 pg/mL (<=900.0)
[2025-06-02 22:47] LABS: Lactate/Lactic Acid 2.1 mmol/L (0.4-2.0)
[2025-06-02] MEDS: IPRATROPIUM/ALBUTEROL SULFATE 3 ML AMPUL.NEB IH (22:49)
--- NOTE | 2025-06-02 22:53 | XR_ITS ---
The [address] [address] Patient Name: GÓMEZ CORTES MRN: [id number] date: 1955 Sex: M Assigned Patient Location: ER Current Patient Location: [place] Accession/Order Number: [id number] Exam Date: 06/03/2025 09:01 Report Date: 06/03/2025 09:06 At the request of: SAKINA ROGERS MD Procedure: XR chest 2V PA AND LATERAL CHEST: CLINICAL HISTORY: SOB COMPARISON: 06/02/[address] chest 02/19/2024 Hemostasis clips are present at the anterior medial right lung. There is similar pleural-parenchymal scarring at the lateral right lung base . No dependent pleural effusion is seen on the lateral. Coarsening of interstitial markings is noted. No developing consolidation or pneumothorax is seen. The cardiac, hilar and mediastinal silhouettes are similar. There is no vascular congestion. The visualized bony structures are osteopenic. There is slight dextro scoliotic curvature. There is possible DISH . A screw is seen at the glenoid on the left. There is prior cervical fusion. XR/XR chest 2V IMPRESSION: CHRONIC PLEURAL PARENCHYMAL CHANGES ON THE RIGHT. NO ACUTE CARDIOPULMONARY ABNORMALITY. Impression dictated by: Hoa Lockwood M.D. 06/03/2025 9:06 AM Dictation Location: [place] [address] Electronically authenticated by: [id number] Y Date: 06/03/2025 09:06
[2025-06-02] MEDS: METHYLPREDNISOLONE SOD SUCC PF 125 MG/2 ML VIAL IVP (23:05)
[2025-06-03] VITALS (12 sets, daily range): BP systolic 92–153; BP diastolic 57–72; PULSE 71–92; TEMP 36.4–38.1; O2SAT 90–95; BMI 41.2
[2025-06-03] MEDS: AZITHROMYCIN 500 MG in 0.9 % SODIUM CHLORIDE 250 ML 250 MG IV ×2 (00:18→17:12)
--- OUTSIDE RECORDS SUMMARY | 2025-06-03 01:34 | XMS_ITS | CCD ---
Author Organization [facility] Care Team Providers Care Equipment Tech Name Role Phone KARINA JAY Attending Unavailable SELF, REFERRED Referring Unavailable JOSE MCCLOUD Primary Care Unavailable JOHN MEJÍA Admitting Unavailable Alex Bonilla Unavailable Neelam Morris Unavailable AME, DR JOSE Danielson Admitting Unavailable FURLONG, DR JOSE Danielson Attending Unavailable MERCYEREChata, DR JIGNESH Means Primary Care Unavailable JUANCARLOSLONG, DR JOSE Danielson Primary Care Unavailable CARRIE LAZO Consulting Unavailable FAWWAD, TONY H Admitting Unavailable FAWWAVictorina TONY H Attending Unavailable FAWWAD TONY H Consulting Unavailable MAMIE ALFORD Consulting Unavailable HAY ., DR BUENROSTRO Admitting Unavailable HAY ., DR BUENROSTRO Attending Unavailable NADEREChata, DR JIGNESH Means Primary Care Unavailable MALLORY, DR TRINIDAD Cummins Consulting Unavailable YAIR ., [...] Unavailable WALLACE, DR JIGNESH Means Attending Unavailable MERCYEREChata, DR JIGNESH Means Primary Care Unavailable BARBER, DR KELL Brizuela Consulting Unavailable NADEREChata, DR JIGNESH Means Consulting Unavailable MERCYEREChata, DR JIGNESH Means Admitting Unavailable MERCYEREChata, DR JIGNESH Means Attending Unavailable WALLACE, DR JIGNESH Means Primary Care Unavailable BARBER, DR KELL Brizuela Consulting Unavailable NADERER, DR JIGNESH Means Consulting Unavailable Luiz Riggs Unavailable MD Luiz Riggs Attending Provider [phone] MD Jignesh Gonsalez Primary Care Provider [phone] JIGNESH GONSALEZ Primary Care Physician [phone] Chris CAMARILLO Attending Unavailable NADERERJIGNESH Referring Unavailable Chris CAMARILLO Attending Unavailable MD Jignesh Gonsalez Primary Care Provider RIDGE Garcia Attending Provider MD Jignesh Gonsalez Primary Care Provider RIDGE Garcia Attending Provider Jignesh Gonsalez MD Primary Care Provider Jignesh Gonsalez Primary Care Unavailable Joslyn Garcia Attending Unavailable Joslyn Garcia Admitting Unavailable MercyereJignesh brizuela Primary Care Unavailable Joslyn Garcia Attending Unavailable Joslyn Garcia Admitting Unavailable LuluYancy Admitting Unavailable Naderechata, Jignesh Primary Care Unavailable Yancy Lawson M Attending Unavailable Ame HUDSON Jose G Primary Care Provider WILLIAM, DARRELL Referring Unavailable WILLIAM, DARRELL Referring Unavailable ELTAHAWY, ADELEAB Attending Unavailable OVITTCORNELIO Attending Unavailable MOUKARBELCOLE Referring Unavailable SAPPHIRE BONANANO Admitting Unavailable ROZINA JOSHI Attending Unavailable CORNELIO HODGES Referring Unavailable JONY WEBBER Referring Unavailable NADERER, JIGNESH Referring Unavailable AMRIK PÉREZ Attending Unavailable NADERER, JIGNESH Referring Unavailable NADERER, JIGNESH Attending Unavailable DANECHARI Attending Unavailable NADERER, JIGNESH Attending Unavailable NADERER, JIGNESH Attending Unavailable DANECHARI AVILES Attending Unavailable IMELDA THOMPSON Attending Unavailable IMELDA THOMPSON Referring Unavailable NADERER, JIGNESH Attending Unavailable DANECHARI AVILES Attending Unavailable NADERER, JIGNESH Attending Unavailable JOSE M REA Attending Unavailable NADERER, JIGNESH Referring Unavailable NADERER, JIGNESH Attending Unavailable NADERER, JIGNESH Attending Unavailable Naderer Jignesh GAN Primary Care Provider [phone] Sandy Sarabia APRN Attending Provider Kaykay Mendoza APRN Attending Provider Allergies Allergy Classification Reported Allergen(s) Allergy Type Date of Onset Reaction(s) Facility Anti-Epileptic Agents (2 sources) gabapentin Drug Allergy 4 stomach upset, IV ONLY-Dizzy [facility] Opioid Agonists (1 source) oxyCODONE Drug Allergy 4 Unknown Reaction [facility] (13 sources) gabapentin; Translations: [GABAPENTIN] Drug Allergy 0 stomach upset [facility] (2 sources) oxyCODONE Drug Allergy 0 [facility] (3 sources) Phenytoin; Translations: [Dilantin] Drug Allergy 0 [facility] (20 sources) gabapentin; Translations: [gabapentin] Drug Allergy 0 Unknown (qualifier value), Unknown [facility] (20 sources) oxyCODONE; Translations: [oxycodone] Drug Allergy 0 Difficulty breathing (finding), Angioedema, Unknown [facility] (20 sources) Phenytoin; Translations: [phenytoin] Drug Allergy 6 Dizziness (finding), Unknown, Dizziness [facility] (2 sources) Phenytoin; Translations: [PHENYTOIN SODIUM EXTENDED] Drug Allergy 6 [facility] Repository (1 source) gabapentin Drug Allergy 4 [facility] Repository (1 source) oxyCODONE Drug Allergy 4 [facility] Repository (1 source) Phenytoin Drug Allergy 4 [facility] Repository Medications Current Medications Medication Drug Class(es) Dates Sig (Normalized) Sig (Original) acetaminophen 325 mg / HYDROcodone bitartrate 5 mg oral tablet (20 sources) Opioid Agonist Start: 01-28-2025 End: 02-04-2025 take 1 tablet by mouth four times daily as needed for pain HYDROcodone-acetami nophen ([place]) 5-325 MG tablet Indications: Degenerative lumbar spinal stenosis Take 1 tablet by mouth 4 (four) times a day as needed for severe pain for up to 7 days 28 tablet 01/28/2025 02/04/2025 Active Start: 11-15-2024 End: 11-22-2024 take 1 tablet by mouth four times daily as needed for pain HYDROcodone-acetaminophen ([place]) 5-325 MG tablet Indications: Degenerative lumbar spinal stenosis Take 1 tablet by mouth 4 (four) times a day as needed for severe pain for up to 7 days 28 tablet 11/15/2024 11/22/2024 Active Start: 04-23-2024 End: 11-01-2024 take 1 tablet by mouth four times daily as needed for pain HYDROcodone-acetaminophen ([place]) 5-325 MG tablet Indications: Degenerative lumbar spinal stenosis Take 1 tablet by mouth 4 (four) times a day as needed for severe pain for up to 7 days 28 tablet 10/25/2024 11/01/2024 Active [place] Active take 1 tablet by ambika th [...] 2 mg/ml injectable solution (1 source) vit O6-J5-N3-B5- B6 (B-COMPLEX INJECTION) 523-2-109-2-2 mg/mL solution B-Complex 1 QD 0 Active [...] Start: 05-23-2025 take 1 capsule by mo [facility] once daily before mealtime omeprazole (PriLOSEC) [...] 08/30/2022 Active take 1 capsule by mo [facility] every twelve hours Phenytoin Sodium Extended [...] puff(s) by in halation once daily Umeclidinium [place] (Incruse Ellipta) 62.5 MCG/ACT aerosol powder Indications: [...] disease (20 sources) 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; Translations: [Coronary [...] 2 04-23-2024 Chronic Other aftercare (1 source) custodial (current) use of aspirin; Translations: [CORRECTION CURRENT USE OF ASPIRIN] Onset: 3 Episodic Other aftercare (1 source) Other 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; Translations: [OTH ASSIGNMENT OFFICER CURRENT DRUG THERAPY] Onset: 3 Episodic Other [...] (BMI) of 40.0 to 44.9 in adult ([facility] Onset: 1 11-22-2024 Chronic Other upper respiratory [...] current use of drug therapy; Translations: [Other fpc (current) drug therapy] Onset: 11-29-2023 11-29-2023 Episodic Other aftercare (20 sources) Post-discharge follow-up; Translations: [Encounter for follow-up examination after completed treatment for conditions other than malignant neoplasm] Onset: 01-11-2024 Resolved: 02-21-2024 02-21-2024 Episodic Other aftercare (1 source) Patient encounter status; Translations: [Other 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 [facility] RESULT 2on 03-09-2025 RESULT 2 Result 2 Few gram positive rods. [facility] RESULT 3on 03-09-2025 RESULT 3 Result 3 ANIMAL HUSBANDRY WORKER [facility] RESULT 4on 03-09-2025 RESULT 4 Result 4 ANIMAL HUSBANDRY WORKER [facility] WHITE BLOOD CELLSon 03-09-20 WHITE BLOOD CELLS White Blood Cells [facility] WHITE BLOOD CELLS Many [facility] ECG 12-LEADon 03-08-2025 [place] [address] Electrocardiograph Report Signed Patient: NAZARIO CORTES Jr. MR#: [id number] : 1955 Acct:[id number] Age/Sex: 70 / M ADM Date: 03/07/25 Loc: MS 219-[address]: Anson Manriquez M.D. Ordering Physician: Mariana Mazariegos Date of Service: 03/07/25 Procedure(s): ECG 12 lead Accession Number(s): [id number] cc: [facility] Test Date: 2025-03-07 Pat Name: NAZARIO CORTES Department: Room: - Gender: Male Glass Etcher: : 1955 Requested By: 0923 Order Number: [id number] Reading MD: COLE SMITH M.D. Measurements Intervals Schlater Rate: 78 P: 49 LA: 174 QRS: 16 QRSD: 84 T: 40 QT: 380 QTc: 414 Interpretive Statements 1100 Sinus rhythm 9110 normal ECG Compared to ECG 02/21/2025 11:34:46 No significant changes Electronically Signed On 03-08-2025 11:51:46 EDT by COLE SMITH M.D. Dictated By: COLE SMITH Signed By: 03/08/25 1152 DD/ 11 TD/TT: Associate Merchandise Planner: [facility] Radiology, Radiologist, - 03/08/2025 [place] [address] Electrocardiograph Report Signed Patient: NAZARIO CORTES Jr. MR#: [id number] : 1955 Acct:[id number] Age/Sex: 70 / M ADM Date: 03/07/25 Loc: MS 219-[address]: Anson Manriquez M.D. Ordering Physician: Mariana Mazariegos Date of Service: 03/07/25 Procedure(s): ECG 12 lead Accession Number(s): [id number] cc: [facility] Test Date: 2025-03-07 Pat Name: NAZARIO CORTES Department: Room: - Gender: Male Glass Etcher: : 1955 Requested By: 0923 Order Number: [id number] Reading MD: COLE SMITH M.D. Measurements Intervals Schlater Rate: 78 P: 49 LA: 174 QRS: 16 QRSD: 84 T: 40 QT: 380 QTc: 414 Interpretive Statements 1100 Sinus rhythm 9110 normal ECG Compared to ECG 02/21/2025 11:34:46 No significant changes Electronically Signed On 03-08-2025 11:51:46 EDT by COLE SMITH M.D. Dictated By: COLE SMITH Signed By: 03/08/25 1152 DD/ 11 TD/TT: Associate Merchandise Planner: [facility] [employer] ECG 12-LEADOrdered By: Radio logist Radiology on 03-08-2025 [facility] [employer] Work Phone: ECG 12-LEADon 03-07-2025 Radiology Study observation (narrative) [facility] RT PULMONARY FUNCTION TESTon 02-27-2025 [place] [address] Respiratory Report Signed Patient: NAZARIO CORTES Jr. MR#: [id number] : 1955 Acct:[id number] Age/Sex: 70 / M ADM Date: 02/22/25 Loc: CARD Attending Dr: Jignesh Gonsalez M.D. Ordering Physician: Jignesh Gonsalez M.D. Date of Service: 02/22/25 Procedure(s): RT pulmonary function test Accession Number(s): [id number] cc: [facility] Test Date: 2025-02-22 Pat Name: NAZARIO CORTES Department: Room: - Gender: Male Glass Etcher: Tommy Fitch RRT : 1955 Requested By: JIGNESH GONSALEZ Order Number: [id number] Reading MD: Perfecto Portillo Interpretive Statements Pulmonary [...] Signed By: 02/27/25 1357 DD/ 1252 TD/TT: Associate Merchandise Planner: [facility] Radiology, Radiologist, MD - 02/27/2025 [place] [address] Respiratory Report Signed Patient: NAZARIO CORTES Jr. MR#: [id number] : 1955 Acct:[id number] Age/Sex: 70 / M ADM Date: 02/22/25 Loc: CARD Attending Dr: Jignesh Gonsalez M.D. Ordering Physician: Jignesh Gonsalez M.D. Date of Service: 02/22/25 Procedure(s): RT pulmonary function test Accession Number(s): [id number] cc: [facility] Test Date: 2025-02-22 Pat Name: NAZARIO CORTES Department: Room: - Gender: Male Glass Etcher: Tommy Fitch RRT : 1955 Requested By: JIGNESH GONSALEZ Order Number: [id number] Reading MD: Perfecto Portillo Interpretive Statements Pulmonary [...] Signed By: 02/27/25 1357 DD/ 1252 TD/TT: Associate Merchandise Planner: [facility] RT PULMONARY FUNCTION TESTOr dered By: Radiologist Radiology on 02-27-2025 [facility] Work Phone: RT PULMONARY FUNCTION TESTon 02-22-2025 Radiology Study observation (narrative) [facility] Healthcare Office Visiton 01-22-2025 Follow-up visit [id number] Nazario Cortes Jr. 1955 M Date Provider Department Center 01/22/2025 271-ARNAUD LYONS CARD [facility] Family History Problem Relation Age of Onset Supraventricular tachycardia Mother Stroke Father Kidney cancer Sister Diabetes Sister COPD Brother Family Status - Relation Status Age at Mother Father Sister Brother Level of Service:76183 [place] OFFICE/OUTPATIENT ESTABLISHED LOW MDM 20 MIN Normal [facility] BASIC METABOLIC PANELon 12-23 Anion gap [Moles/Vol] 11 mmol/L Normal 7-20 [facility] Comment on above: Performed By: #### L [id number] #### [facility] ([facility]) [address] [place] [address] Calcium [Mass/Vol] 8.8 mg/dL Normal 8.6-10.3 [facility] Comment on above: Performed By: #### L [id number] #### [facility] ([facility]) [address] [place] [address] Chloride [Moles/Vol] 104 mmol/L Normal 98-107 [facility] Comment on above: Performed By: #### L [id number] #### [facility] ([facility]) [address] [place] [address] CO2 [Moles/Vol] 24 mmol/L Normal 21-31 [facility] Comment on above: Performed By: #### L [id number] #### [facility] ([facility]) [address] [place] [address] Creatinine [Mass/Vol] 0.81 mg/dL Normal 0.70-1.30 [facility] Comment on above: Performed By: #### L [id number] #### [facility] ([facility]) [address] [place] [address] GLOMERULAR FILTRATION RATE ML/MIN/1.73 SQ M.PREDICTED 95.4 mL/min/1.73m*2 Normal >60.0 [facility] Comment on above: Result Comment: [facility]???s estimated glomerular filtration rate (eGFR) will [...] individuals. Performed By: #### L [id number] #### [facility] ([facility]) [address] [place] [address] Glucose [Mass/Vol] 114 mg/dL High 70-100 [facility] Comment on above: Performed By: #### L [id number] #### [facility] ([facility] [address] [place] [address] Potassium [Moles/Vol] 4.2 mmol/L Normal 3.5-5.1 [facility] on above: Performed By: #### L [id number] #### [facility] [address] [place] [address] Sodium [Moles/Vol] 135 mmol/L Low 136-145 [facility] Comment on above: Performed By: #### L [id number] #### [facility] [address] [place] [address] Urea nitrogen [Mass/Vol] 23 mg/dL Normal 7-25 [facility] Comment on above: Performed By: #### L [id number] #### [facility] ([facility]) [address] [place] [address] UREA NITROGEN/CREATININE (MASS RATIO) IN SER/PLAS 28.4 Normal [facility] Comment on above: Performed By: #### L [id number] #### [facility] ([facility]) [address] [place] [address] FOLATEon 01-13-2025 FOLATE (NG/ML) IN SER/PLAS 20.54 ng/mL Normal 6.6-1000 [facility] Comment on above: Performed By: #### L [id number] #### [facility] ([facility]) [address] [place] [address] NURSNOTEon 01-13-2025 NURSNOTE Pt discharged with a ll belongings, discharge paperwork, and questions answered to pt's satisfaction. [facility] VITAMIN B12on 01-13-2025 Cobalamin (Vitamin B12) [Mass/Vol] 353 pg/mL Normal 180-914 [facility] Comment on above: Result Comment: REFE RENCE RANGES: 180-914 pg/mL Normal 145-179 pg/mL Indeterminate <145 pg/mL Deficient Performed By: #### L [id number] #### [facility] ([facility] [address] [place] [address] 30on 01-12-2025 30 The patient is Moderately [...] and behaviors that affect risk of falls [place] fall precautions as indicated by assessment Educate [...] and prevent overall improvement and discharge [facility] 30 The patient is Moderately Stable - Low risk of patient condition declining or worsening The patient's goals for the shift include comfort, rest The clinical goals for the shift include vss, safety [facility] B-TYPE NATRIURETIC PEPTIDEon 01-12-2025 Natriuretic peptide B (Bld) [Mass/Vol] 34 pg/mL Normal 0-100 [facility] Comment on above: Performed By: #### L [id number] #### [facility] ([facility]) [address] [place] [address] BASIC METABOLIC PANELon 12-23 Anion gap [Moles/Vol] 10 mmol/L Normal 7-20 [facility] Comment on above: Performed By: #### L [id number] #### [facility] ([facility]) [address] [place] [address] Calcium [Mass/Vol] 8.4 mg/dL Low 8.6-10.3 [facility] Comment on above: Performed By: #### L [id number] #### [facility] ([facility]) [address] [place] [address] Chloride [Moles/Vol] 101 mmol/L Normal 98-107 [facility] Comment on above: Performed By: #### L [id number] #### [facility] ([facility]) [address] [place] [address] CO2 [Moles/Vol] 26 mmol/L Normal 21-31 [facility] Comment on above: Performed By: #### L [id number] #### [facility] ([facility]) [address] [place] [address] Creatinine [Mass/Vol] 0.79 mg/dL Normal 0.70-1.30 [facility] Comment on above: Performed By: #### L [id number] #### [facility] ([facility]) [address] [place] [address] GLOMERULAR FILTRATION RATE ML/MIN/1.73 SQ M.PREDICTED 96.2 mL/min/1.73m*2 Normal >60.0 [facility] Comment on above: Result Comment: [facility]???s estimated glomerular filtration rate (eGFR) will [...] individuals. Performed By: #### L [id number] #### [facility] ([facility]) [address] [place] [address] Glucose [Mass/Vol] 114 mg/dL High 70-100 [facility] Comment on above: Performed By: #### L [id number] #### [facility] ([facility]) [address] [place] [address] Potassium [Moles/Vol] 4.2 mmol/L Normal 3.5-5.1 [facility] Comment on above: Performed By: #### L [id number] #### [facility] ([facility] [address] [place] [address] Sodium [Moles/Vol] 133 mmol/L Low 136-145 [facility] Comment on above: Performed By: #### L [id number] #### [facility] ([facility] [address] [place] [address] Urea nitrogen [Mass/Vol] 20 mg/dL Normal 7-25 [facility] Comment on above: Performed By: #### L [id number] #### [facility] ([facility]) [address] [place] [address] UREA NITROGEN/CREATININE (MASS RATIO) IN SER/PLAS 25.3 [facility] Comment on above: Performed By: #### L [id number] #### [facility] ([facility]) [address] [place] [address] CBCon 01-12-2025 Erythrocyte distribution width (RBC) [Ratio] 13.3 % Normal 11.5-15.0 [facility] Comment on above: Performed By: #### L [id number] #### [facility] ([facility]) [address] [place] [address] ERYTHROCYTE MEAN CORPUSCULAR HEMOGLOBIN CONCENTRATION (G/DL) BY AUTOMATED 32.7 g/dL Normal 32.0-35.0 [facility] Comment on above: Performed By: #### L [id number] #### [facility] ([facility]) [address] [place] [address] Hematocrit (Bld) [Volume fraction] 41.0 % Normal 39.0-55.0 [facility] Comment on above: Performed By: #### L [id number] #### [facility] ([facility]) [address] [place] [address] Hemoglobin (Bld) [Mass/Vol] 13.4 g/dL Normal 13.0-17.0 [facility] Comment on above: Performed By: #### L [id number] #### [facility] ([facility]) [address] [place] [address] MCH (RBC) [Entitic mass] 32.8 pg Normal 27.0-33.0 [facility] Comment on above: Performed By: #### L [id number] #### [facility] ([facility]) [address] [place] [address] MCV (RBC) [Entitic vol] 100.2 fL High 82.0-98.0 [facility] Comment on above: Performed By: #### L [id number] #### [facility] ([facility]) [address] [place] [address] PLATELETS (10*3/UL) IN BLOOD AUTOMATED COUNT 197 10*3/uL Normal 150-400 [facility] Comment on above: Performed By: #### L [id number] #### [facility] ([facility] [address] [place] [address] RBC (Bld) [#/Vol] 4.09 10*6/uL Low 4.20-5.70 [facility] Comment on above: Performed By: #### L [id number] #### [facility] ([facility]) [address] [place] [address] WBC (Bld) [#/Vol] 8.31 10*3/uL Normal 4.00-10.60 [facility] Comment on above: Performed By: #### L [id number] #### [facility] ([facility]) [address] [place] [address] HEMOGLOBIN A1Con 01-12-2025 Glucose [Mass/Vol] 108 mg/dL Normal [facility] Comment on above: Performed By: #### L [id number] #### [facility] ([facility]) [address] [place] [address] HbA1c (Bld) [Mass fraction] 5.4 % Normal 4.0-6.0 [facility] Comment on above: Performed By: #### L [id number] #### [facility] ([facility]) [address] [place] [address] HEPATIC FUNCTION PANELon Albumin [Mass/Vol] 3.7 g/dL Normal 3.5-5.7 [facility] Comment on above: Performed By: #### L [id number] ####[facility] ([facility])[address] [place] [address] ALP [Catalytic activity/Vol] 152 U/L High 34-104 [facility] Comment on above: Performed By: #### L [id number] ####[facility] ([facility])[address] [place] [address] ALT [Catalytic activity/Vol] 20 U/L Normal 7-52 [facility] Comment on above: Performed By: #### L [id number] ####[facility] ([facility])[address] [place] [address] AST [Catalytic activity/Vol] 25 U/L Normal 13-39 [facility] Comment on above: Performed By: #### L [id number] ####[facility] ([facility] [place] [address] Bilirubin [Mass/Vol] 0.5 mg/dL Normal 0.3-1.0 [facility] Comment on above: Performed By: #### L [id number] ####[facility] ([facility])[address] [place] [address] Magnesium [Mass/Vol] 0.1 mg/dL Normal 0-0.2 [facility] Comment on above: Performed By: #### L [id number] ####[facility] ([facility])[address] [place] [address] Protein [Mass/Vol] 8.1 g/dL Normal 6.0-8.3 [facility] Comment on above: Performed By: #### L [id number] ####[facility] ([facility])[address] [place] [address] LIPID PANELon 01-12-2025 CHOL/HDL 3.3 mg/dL Normal [facility] Comment on above: Performed By: #### L [id number] ####[facility] ([facility])[address] [place] [address] Cholesterol [Mass/Vol] 140 mg/dL Normal 120-200 [facility] Comment on above: Performed By: #### L [id number] ####[facility] ([facility])[address] [place] [address] Magnesium [Mass/Vol] 230 mg/dL High 40-149 [facility] Comment on above: Result Comment: TRIG LYCERIDE REFERENCE RANGE: 20 YEARS AND OLDER CARDIOVASCULAR RISK LESS THAN 150 mg/dL LOW RISK 150 TO 199 mg/dL BORDERLINE RISK 200 mg/dL AND GREATER HIGH RISK Performed By: #### L [id number] ####[facility] ([facility])[address] [place] [address] Magnesium [Mass/Vol] 51 mg/dL Normal 0-160 [facility] Comment on above: Performed By: #### L [id number] ####[facility] ([facility])[address] [place] [address] Magnesium [Mass/Vol] 43 mg/dL Normal 23-92 [facility] Comment on above: Performed By: #### L [id number] ####[facility] ([facility] [place] [address] NON HDL CHOL. (LDL+VLDL) 97 Normal [facility] Comment on above: Performed By: #### L [id number] ####[facility] ([facility])[address] [place] [address] TOTAL VLDL-C 46 mg/dL High 0-40 [facility] Comment on above: Performed By: #### L [id number] ####[facility] ([facility])[address] [place] [address] MAGNESIUMon 01-12-2025 Magnesium [Mass/Vol] 1.9 mg/dL Normal 1.9-2.7 [facility] Comment on above: Performed By: #### L [id number] #### [facility] ([facility]) [address] [place] [address] 30on 01-11-2025 30 The patient is Moderately [...] and maintained or improved Outcome: Progressing Normal [facility] 30 Daily Case Managemen t Update Multidisciplinary rounds have been completed. Barriers to Discharge: Patient presented to [facility] with chest pain, and was transferred to [facility] for heart cath. Patient to go for [...] Level of Consultation Consultation and Management 01/11/25136 [facility] 30 The patient is Moderately Stable [...] exacerbated and prevent overall improvement and discharge [facility] 30 The patient is Moderately Stable - Low risk of patient condition declining or worsening The patient's goals for the shift include Comfort The clinical goals for the shift include VSS [facility] Marguerite 01-11-2025 ANES -- Attestation signed by Arnaud Lyons MD at 01/11/2025 1:02 PM Arnaud Lyons MD, MPH, [facility], [facility], [facility] Interventional Cardiology Pager Email: [email or web address] Patient: Nazario Cortes Procedure Information Date/Time: 01/11/25 5422 Procedure: Coronary angiography Location: [facility] 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 Additional Equipment Requests Normal [facility] APTTon 01-11-2025 ACTIVATED PARTIAL THROMBOPLASTIN TIME IN PPP BY COAGULATION ASSAY 26.3 Seconds Normal 25.0-35.0 [facility] Comment on above: Order Comment: Basel ine aPTT before initiating heparin infusion. Result Comment: Clin ical significance of the APTT is questionable in the presence of heparin. Performed By: #### L [id number] #### [facility] ([facility]) [address] [place] [address] BASIC METABOLIC PANELon 12-23 Anion gap [Moles/Vol] 9 mmol/L Normal 7-20 [facility] Comment on above: Performed By: #### L [id number] #### [facility] ([facility]) [address] [place] [address] Calcium [Mass/Vol] 8.3 mg/dL Low 8.6-10.3 [facility] Comment on above: Performed By: #### L [id number] #### [facility] ([facility] [address] [place] [address] Chloride [Moles/Vol] 103 mmol/L Normal 98-107 [facility] Comment on above: Performed By: #### L [id number] #### [facility] ([facility]) [address] [place] [address] CO2 [Moles/Vol] 26 mmol/L Normal 21-31 [facility] Comment on above: Performed By: #### L [id number] #### [facility] ([facility]) [address] [place] [address] Creatinine [Mass/Vol] 0.81 mg/dL Normal 0.70-1.30 [facility] Comment on above: Performed By: #### L [id number] #### [facility] ([facility]) [address] [place] [address] GLOMERULAR FILTRATION RATE ML/MIN/1.73 SQ M.PREDICTED 95.4 mL/min/1.73m*2 Normal >60.0 [facility] Comment on above: Result Comment: [facility]???s estimated glomerular filtration rate (eGFR) will [...] group of individuals. Performed By: #### L [id number] #### [facility] ([facility]) [address] [place] [address] Glucose [Mass/Vol] 105 mg/dL High 70-100 [facility] Comment on above: Performed By: #### L [id number] #### [facility] ([facility]) [address] [place] [address] Potassium [Moles/Vol] 4.1 mmol/L Normal 3.5-5.1 [facility] Comment on above: Performed By: #### L [id number] #### [facility] ([facility]) [address] [place] [address] Sodium [Moles/Vol] 134 mmol/L Low 136-145 [facility] Comment on above: Performed By: #### L [id number] #### [facility] ([facility]) [address] [place] [address] Urea nitrogen [Mass/Vol] 18 mg/dL Normal 7-25 [facility] Comment on above: Performed By: #### L [id number] #### [facility] ([facility]) [address] [place] [address] UREA NITROGEN/CREATININE (MASS RATIO) IN SER/PLAS 22.2 Normal [facility] Comment on above: Performed By: #### L [id number] #### [facility] ([facility]) [address] [place] [address] CBC WITH AUTO DIFFERENTIALon 01-11-2025 Basophils (Bld) [#/Vol] 0.08 10*3/uL Normal 0.00-0.20 [facility] Comment on above: Performed By: #### L [id number] #### [facility] ([facility]) [address] [place] [address] Basophils/100 WBC (Bld) 0.9 % Normal 0.0-1.0 [facility] Comment on above: Performed By: #### L [id number] #### [facility] ([facility]) [address] [place] [address] Eosinophils (Bld) [#/Vol] 0.56 10*3/uL High 0.00-0.50 [facility] Comment on above: Performed By: #### L [id number] #### [facility] ([facility]) [address] [place] [address] Eosinophils/100 WBC (Bld) 6.5 % High 0.0-6.0 [facility] Comment on above: Performed By: #### L [id number] #### [facility] ([facility]) [address] [place] [address] Erythrocyte distribution width (RBC) [Ratio] 13.5 % Normal 11.5-15.0 [facility] Comment on above: Performed By: #### L [id number] #### [facility] ([facility]) [address] [place] [address] ERYTHROCYTE MEAN CORPUSCULAR HEMOGLOBIN CONCENTRATION (G/DL) BY AUTOMATED 32.7 g/dL Normal 32.0-35.0 [facility] Comment on above: Performed By: #### L [id number] #### [facility] ([facility]) [address] [place] [address] Hematocrit (Bld) [Volume fraction] 39.8 % Normal 39.0-55.0 [facility] Comment on above: Performed By: #### L [id number] #### [facility] ([facility]) [address] [place] [address] Hemoglobin (Bld) [Mass/Vol] 13.0 g/dL Normal 13.0-17.0 [facility] Comment on above: Performed By: #### L [id number] #### [facility] ([facility]) [address] [place] [address] Immature granulocytes (Bld) [#/Vol] 0.06 10*3/uL Normal 0.00-0.20 [facility] Comment on above: Performed By: #### L [id number] #### [facility] ([facility]) [address] [place] [address] Immature granulocytes/100 WBC (Bld) 0.7 % Normal 0.0-1.0 [facility] Comment on above: Performed By: #### L [id number] #### [facility] ([facility]) [address] [place] [address] Lymphocytes (Bld) [#/Vol] 1.53 10*3/uL Normal 1.20-4.00 [facility] Comment on above: Performed By: #### L [id number] #### [facility] ([facility]) [address] [place] [address] Lymphocytes/100 WBC (Bld) 17.7 % Low 20.0-45.0 [facility] Comment on above: Performed By: #### L [id number] #### [facility] ([facility]) [address] [place] [address] MCH (RBC) [Entitic mass] 33.3 pg High 27.0-33.0 [facility] Comment on above: Performed By: #### L [id number] #### [facility] ([facility]) [address] [place] [address] MCV (RBC) [Entitic vol] 102.1 fL High 82.0-98.0 [facility] Comment on above: Performed By: #### L [id number] #### [facility] ([facility]) [address] [place] [address] Monocytes (Bld) [#/Vol] 0.78 10*3/uL Normal 0.10-1.00 [facility] Comment on above: Performed By: #### L [id number] #### [facility] ([facility]) [address] [place] [address] Monocytes/100 WBC (Bld) 9.0 % Normal 5.0-12.0 [facility] Comment on above: Performed By: #### L [id number] #### [facility] ([facility]) [address] [place] [address] Neutrophils (Bld) [#/Vol] 5.62 10*3/uL Normal 1.60-7.60 [facility] Comment on above: Performed By: #### L [id number] #### [facility] ([facility]) [address] [place] [address] Neutrophils/100 WBC (Bld) 65.2 % Normal 40.0-72.0 [facility] Comment on above: Performed By: #### L [id number] #### [facility] ([facility]) [address] [place] [address] NRBC (PER 100 WBCS) BY AUTOMATED COUNT 0.0 % Normal 0 [facility] Comment on above: Performed By: #### L [id number] #### [facility] ([facility]) [address] [place] [address] PLATELETS (10*3/UL) IN BLOOD AUTOMATED COUNT 187 10*3/uL Normal 150-400 [facility] Comment on above: Performed By: #### L [id number] #### [facility] ([facility]) [address] [place] [address] RBC (Bld) [#/Vol] 3.90 10*6/uL Low 4.20-5.70 [facility] Comment on above: Performed By: #### L [id number] #### [facility] ([facility]) [address] [place] [address] WBC (Bld) [#/Vol] 8.63 10*3/uL Normal 4.00-10.60 [facility] Comment on above: Performed By: #### L [id number] #### [facility] ([facility]) [address] [place] [address] CONSULTon 01-11-2025 CONSULT -- Attestation signed by [...] recently published COL C OT trial. Darrell Sincalir MD, ScM, MSc Cardiac Javascript Front End Developer Email: [email or web address] Cardiology Consult Note Reason for Consult: [...] chest pain. He was initially brought to [facility] and subsequently transferred to [facility] for cardiac catheterization. At present, the patient reports mild chest pain but denies shortness of breath, nausea, vomiting, dizziness, or palpitations. He reports a smoking history but quit in 1996. Blood pressure 142/84, heart rate 70s, EKG sinus rhythm with 1st degree AV block LA interval 210. Cardiology ROS: Negative except as mentioned. Past Medical History He has a past medical history of Bl[facility] Cholelithiasis, Colon polyp, Depression, Dyslipidemia, Hearing loss, [...] 40 mg, oral, Daily PRN HYDROcodone-acetaminop hen ([place]) 5-325 mg tablet take 1 tablet by mouth four times a day if needed for severe pain for up to 7 days meclizine (Antivert) 25 mg tablet take 1 tablet by mouth four times a day if needed for dizziness methocarbamol (Robaxin) 750 mg tablet take 1 tablet by mouth four times a day if needed for muscle spasm bnjnsudrknfj-wbqu-iezf rals-folic acid (Multivitamin 50 Plus) tablet Every 24 hours nitroglycerin (NITROSTAT) 0.3 mg, sublingual PHENobarbital (LUMINAL) 64.8 mg, oral, 3 times daily RT phenytoin ER (Dilantin) 100 mg capsule take 2 capsules by mouth three times a day potassium chloride CR (K-Tab) 20 mEq ER table (more content not included)... Normal [facility] HPon 01-11-2025 HP -- Attestation signed [...] me. Additional Comments: Arnaud Lyons MD, MPH, [facility], [facility], [facility] Interventional Cardiology Pager Email: [email or web address] H&P reviewed. The patient was examined and there are no changes to the H&P. Will proceed with coronary angiogram for further assessment. Procedure's details, risks and benefits discussed with the patient and he's agreeable. Normal [facility] PLATELET COUNTon 01-11-2025 PLATELETS (10*3/UL) IN BLOOD AUTOMATED COUNT 177 10*3/uL Normal 150-400 [facility] Comment on above: Performed By: #### L [id number] #### [facility] ([facility]) [address] [place] [address] TROPONIN Ion 01-11-2025 Troponin I.cardiac [Mass/Vol] 0.01 ng/mL Normal 0.00-0.04 [facility] Comment on above: Performed By: #### L [id number] #### [facility] ([facility]) [address] [facility] [place] [address] Troponin I.cardiac [Mass/Vol] 0.01 ng/mL Normal 0.00-0.04 [facility] Comment on above: Performed By: #### L [id number] #### [facility] ([facility]) [address] [facility] [place] [address] Troponin I.cardiac [Mass/Vol] 0.01 ng/mL Normal 0.00-0.04 [facility] Comment on above: Performed By: #### L [id number] #### [facility] ([facility]) [address] [place] [address] No Panel InformationOrdered By: Fay Adhikari on 11-27-2024 [facility] Radiology Study observation (narrative) [facility] XR knee RT 4V*on 10-17-2024 XR knee RT 4V* [facility] [place] [address] XRay Report Signed Patient: Nazario Cortes Jr MR#: [id number] : 1955 Acct:[id number] Age/Sex: 69 / M ADM Date: 10/17/24 Loc: XDUCLY Room: Type: [facility] Attending Dr: Yancy Lawson APRN Copies [...] 2:40 PM Dictation Location: RADIO-PC-23 Transcribed By: [facility] 10/17/24 1440 Dictated By: Hoa Lockwood MD 10/17/24 1438 Signed By: 10/17/24 1440 Normal [facility] Physician [facility] XR knee RT 4V*on 09-07-2024 XR knee RT 4V* [facility] Main [place] [address] [place] [address] XRay Report Signed Patient: Nazario Cortes Jr MR#: [id number] : 1955 Acct:[id number] Age/Sex: 69 / M ADM Date: 09/07/24 Loc: XDUCLY Room: Type: [facility] Attending Dr: Joslyn Garcia APRN Copies [...] 4:15 PM Dictation Location: RADIO-PC-15 Transcribed By: [facility] 09/07/24 1615 Dictated By: Bar Ching Jr, DO 09/07/24 161 Signed By: 09/07/24 161 Normal [facility] Physician [facility] Influenza virus A and B and SARS-CoV-2 (COVID-19) RNA panel - Respiratory system specon 08-16-2024 Influenza virus A and B RNA and SARS-CoV-2 (COVID-19) N gene panel ALEX+probe (Resp) Negative [facility] Laboratory - Microbiology an d Antimicrobial susceptibilityon 08-16-2024 SARS-CoV-2 (COVID-19) RNA ALEX+probe Ql (Unsp spec) Negative [facility] No Panel Informationon 08-16 POC Influenza B (ALEX) Negative [facility] Follow-Upon 08-08-2024 Follow-Up [id number] Nazario Cortes 1955 M Date Provider Department Center 08/08/2024 [facility] [place] Family History Problem Relation Age of Onset Supraventricular tachycardia Mother Stroke Father Kidney cancer Sister Diabetes Sister COPD Brother Family Status - Relation Status Age at Mother Father Sister Brother Level of Service:38544 LA OFFICE/OUTPATIENT ESTABLISHED MOD MDM 30 MIN Reason for Visit and Comments: Follow-up [579977] - Pt is here for a follow up visit for Lumbar Stenosis. Normal [facility] 36on 07-30-2024 36 Talked to patient. [...] given his ongoing issues. Verbalizes understanding. Normal [facility] Telephoneon 07-30-2024 Telephone [id number] Nazario Cortes 1955 M Date Provider Department Center 07/30/2024 [facility] [place] Family History Problem Relation Age of Onset Supraventricular tachycardia Mother Stroke Father Kidney cancer Sister Diabetes Sister COPD Brother Family Status - Relation Status Age at Mother Father Sister Brother [facility] MR CERVICAL SPINE W AND WO [...] BOWMAN MD. Not Vldtd Invalid Interpretation Code [facility] XR elbow LT min 3V*on 2023 XR elbow LT min 3V* [facility] Main [place] [address] [place] [address] XRay Report Signed Patient: Nazario Cortes Jr MR#: [id number] : 1955 Acct:[id number] Age/Sex: 69 / M ADM Date: 05/15/24 Loc: XDUCLY Room: Type: [facility] Attending Dr: Joslyn Garcia APRN Copies to: Joslyn Garcia APRN Ordering Provider: Joslyn M Radha, [employer] Date of Service: 05/15/24 XR/XR elbow LT [...] Zain Fitzpatrick M.D.05/15/2024 4:23 PM Dictation Location: [facility]-PC-12 Transcribed By: [facility] 05/15/24 162 Dictated By: Zain Fitzpatrick DO 05/15/24 1621 Signed By: 05/15/24 1623 Normal [facility] Orders Onlyon 04-11-2024 Orders Only [id number] Nazario Cortes 1955 M Date Provider Department Center 04/11/2024 [id number], [facility] Family History Problem Relation Age of Onset Supraventricular tachycardia Mother Stroke Father Kidney cancer Sister Diabetes Sister COPD Brother Family Status - Relation Status Age at Mother Father Sister Brother Normal [facility] US CAROTID ART BILon 023 US [...] by: KELL BLANDON Date: 2023-01-11 08:42 Normal [facility] ECHOCARDIO M/2D COMPLETEon 0 01-07-2023 ECHOCARDIO M/2D COMPLETE Patient: NAZARIO CORTES Exam Date: 01/07/2023 : 1955 Gender:M Ordering : DR JIGNESH GONSALEZ . Admission #: [id number] Family : Order #: [id number] CLICK HERE TO VIEW EXAM ECHOCARDIOGRAM REPORT [...] M.D. on 01/11/2023 at 18:23 Normal [facility] XR ELBOW LT MIN 3 VIEWSon [...] VIDAL FRASER Date: 2022-12-24 20:23 Normal [facility] XR HIP LT 2 3V W [...] VIDAL FRASER Date: 2022-12-24 20:21 Normal [facility] XR HUMERUS LT MIN 2Von 12-24 [...] KELL DELANEY Date: 2022-12-24 21:03 Normal [facility] CBC AUTO DIFFon 11-04-2022 BASO # 0.1 103/ul Normal 0.0-0.1 [facility] Comment on above: Performed By: #### B MP, CMREP, LIPID #### [facility] [address] [place] [address] Dr. Jeimy Tenorio Basophils/100 WBC (Bld) 0.9 % Normal 0.2-2.0 [facility] Comment on above: Performed By: #### B MP, CMREP, LIPID #### [facility] [address] [place] [address] Dr. Jeimy Tenorio EO # 0.3 103/ul Normal 0.0-0.7 [facility] Comment on above: Performed By: #### B MP, CMREP, LIPID #### [facility] [address] [place] [address] Dr. Jeimy Tenorio Eosinophils/100 WBC (Bld) 5.2 % Normal 0.9-7.0 [facility] Comment on above: Performed By: #### B MP, CMREP, LIPID #### [facility] [address] [place] [address] Dr. Jeimy Tenorio Erythrocyte distribution width (RBC) [Ratio] 12.9 % Normal 11.0-15.0 [facility] Comment on above: Performed By: #### B MP, CMREP, LIPID #### [facility] [address] [place] [address] Dr. Jeimy Tenorio Hematocrit (Bld) [Volume fraction] 39.5 % Critically low 42.0-54.0 [facility] Comment on above: Performed By: #### B MP, CMREP, LIPID #### [facility] [address] [place] [address] Dr. Jeimy Tenorio Hemoglobin (Bld) [Mass/Vol] 13.1 g/dL Critically low 14.0-18.0 [facility] Comment on above: Performed By: #### B MP, CMREP, LIPID #### [facility] [address] [place] [address] Dr. Jeimy Tenorio IG # 0.03 10e3/ul Normal 0.00-0.03 [facility] Comment on above: Performed By: #### B MP, CMREP, LIPID #### [facility] [address] [address] [address] Jeimy Tenorio IG % 0.5 % Normal 0.0-0.5 [facility] Comment on above: Performed By: #### B MP, CMREP, LIPID #### [facility] [address] [address] [address] Jeimy Tenorio LYMPH # 1.5 103/ul Normal 1.2-3.8 [facility] Comment on above: Performed By: #### B MP, CMREP, LIPID #### [facility] [address] [address] [address] Jeimy Tenorio Lymphocytes/100 WBC (Bld) 22.6 % Normal 20.5-60.0 [facility] Comment on above: Performed By: #### B MP, CMREP, LIPID #### [facility] [address] [place] [address] Dr. Jeimy Tenorio MANUAL DIFF REQ NO Normal [facility] Comment on above: Performed By: #### B MP, CMREP, LIPID #### [facility] [address] [place] [address] Dr. Jeimy Tenorio MCH (RBC) [Entitic mass] 32.8 pg Normal 25.9-34.0 [facility] Comment on above: Performed By: #### B MP, CMREP, LIPID #### [facility] [address] [address] [address] Jeimy Tenorio MCHC (RBC) [Mass/Vol] 33.2 g/dL Normal 29.9-35.2 [facility] Comment on above: Performed By: #### B MP, CMREP, LIPID #### [facility] [address] [address] [address] Jeimy Tenorio MCV (RBC) [Entitic vol] 99.0 fL Critically high 80.0-94.0 [facility] Comment on above: Performed By: #### B MP, CMREP, LIPID #### [facility] [address] [place] [address] Dr. Jeimy Tenorio MONO # 0.7 103/ul Normal 0.3-0.8 [facility] Comment on above: Performed By: #### B MP, CMREP, LIPID #### [facility] [address] [place] [address] Dr. Jeimy Tenorio Monocytes/100 WBC (Bld) 10.6 % Normal 1.7-12.0 [facility] Comment on above: Performed By: #### B MP, CMREP, LIPID #### [facility] [address] [place] [address] Dr. Jeimy Tenorio NEUT # 4.0 103/ul Normal 1.4-6.5 [facility] Comment on above: Performed By: #### B MP, CMREP, LIPID #### [facility] [address] [place] [address] Dr. Jeimy Tenorio Neutrophils/100 WBC (Bld) 60.2 % Normal 43.0-75.0 [facility] Comment on above: Performed By: #### B MP, CMREP, LIPID #### [facility] [address] [place] [address] Dr. Jeimy Tenorio Platelet mean volume (Bld) [Entitic vol] 9.7 fL Normal 9.5-13.5 [facility] Comment on above: Performed By: #### B MP, CMREP, LIPID #### [facility] [address] [place] [address] Dr. Jeimy Tenorio PLT 176 103/ul Normal 150-450 [facility] Comment on above: Performed By: #### B MP, CMREP, LIPID #### [facility] [address] [place] [address] Dr. Jeimy Tenorio RBC 3.99 106/ul Critically low 4.70-6.10 [facility] Comment on above: Performed By: #### B MP, CMREP, LIPID #### [facility] [address] [place] [address] Dr. Jeimy Tenorio WBC 6.6 103/ul Normal 4.0-11.0 [facility] Comment on above: Performed By: #### B MP, CMREP, LIPID #### [facility] [id number] Jeim[address] Ten[address] HEAD WO CONon [...] ALEJANDRO PINEDA Date: 2022-11-04 14:08 Normal [facility]21 SARS-CoV-2 (COVID-19) RNA ALEX+probe Ql (Unsp spec) Not detected Normal NOT DETECTED [facility] Comment on above: Result Comment: This test is not yet approved or cleared by the [place] FDA. When there are no FDA-approved or cleared tests available, and other criteria are met, FDA can make tests available under an emergency access mechanism called an Emergency Use Authorization (EUA). The EUA for this test is supported by the Field Counsel of Health and Human Service's (HHS's) declaration [...] By: #### B MP, CMREP, LIPID #### [facility] [address] [place] [address] Dr. Jeimy Tenorio INFLUENZA A AND B AGon 11-04 INFLUANEGH SEE BELOW Normal [facility] Comment on above: Result Comment: Nega tive for Flu A protein angiten. Infection due to Flu A cannot be ruled out. Flu A angiten in the sample may be below the detection limit of the test. Performed By: #### I NFLUAB #### [facility] [address] [place] [address] Dr. Jeimy Tenorio INFLUBNEG SEE BELOW Normal [facility] Comment on above: Result Comment: Nega tive for Flu B protein antigen. Infection due to Flu B cannot be ruled out. Flu B antigen in the sample may be below the detection limit of the test. Performed By: #### I NFLUAB #### [facility] [address] [place] [address] Dr. Jeimy Tenorio INFLUENZA A AG Negative Normal NEGATIVE SEE COMMENT [facility] Comment on above: Performed By: #### I NFLUAB #### [facility] [address] [place] [address] Dr. Jeimy Tenorio INFLUENZA B AG Negative Normal NEGATIVE SEE COMMENT [facility] Comment on above: Performed By: #### I NFLUAB #### [facility] [address] [place] [address] Dr. Jeimy Tenorio INTERNAL CONTROLS Within Normal Limits Normal Wi thin Normal Limits [facility] Comment on above: Performed By: #### I NFLUAB #### [facility] [address] [place] [address] Dr. Jeimy Tenorio PROF CHEM 8 (BAS METB)on Anion gap [Moles/Vol] 9.7 mmol/L Normal [facility] Comment on above: Performed By: #### C BC #### [facility] [address] [address] [address] Jeimy Tenorio Calcium [Mass/Vol] 8.0 mg/dL Critically low 8.5-10.1 [facility] Comment on above: Performed By: #### C BC #### [facility] [address] [address] [address] Jeimy Tenorio Chloride [Moles/Vol] 104 mmol/L Normal 98-107 [facility] Comment on above: Performed By: #### C BC #### [facility] [address] [address] [address] Jeimy Tenorio CO2 [Moles/Vol] 31.1 mmol/L Normal 21.0-32.0 [facility] Comment on above: Performed By: #### C BC #### [facility] [address] [place] [address] Dr. Jeimy Tenorio Creatinine [Mass/Vol] 0.75 mg/dL Normal 0.70-1.30 [facility] Comment on above: Performed By: #### C BC #### [facility] [address] [address] [address] Jeimy Tenorio EGFR-AF FIJIAN >60 Normal >=60 [facility] Comment on above: Performed By: #### C BC #### [facility] [address] [place] [address] Dr. Jeimy Tenorio EGFR-NON AF FIJIAN >60 Normal >=60 [facility] Comment on above: Performed By: #### C BC #### [facility] [address] [place] [address] Dr. Jeimy Tenorio Glucose [Mass/Vol] 76 mg/dL Normal 74-106 [facility] Comment on above: Performed By: #### C BC #### [facility] [address] [address] [address] Jeimy Tenorio Potassium [Moles/Vol] 3.8 mmol/L Normal 3.5-5.1 [facility] Comment on above: Performed By: #### C BC #### [facility] [address] [address] [address] Jeimy Tenorio Sodium [Moles/Vol] 141 mmol/L Normal 136-145 [facility] Comment on above: Performed By: #### C BC #### [facility] [address] [place] [address] Dr. Jeimy Tenorio Urea nitrogen [Mass/Vol] 12.0 mg/dL Normal 7.0-18.0 [facility] Comment on above: Performed By: #### C BC #### [facility] [address] [place] [address] Dr. Jeimy Tenorio Urea nitrogen/Creatinine [Mass ratio] 16.0 mg/mg Normal [facility] Comment on above: Performed By: #### C BC #### [facility] [address] [place] [address] Dr. Jeimy Tenorio TROPONIN, HIGH SENSITIVITYon 11-04-2022 HSTROP 5.8 pg/mL Normal 4.0-76.1 [facility] Comment on above: Result Comment: CUT- OFF POINTS HAVE BEEN ESTABLISHED BASED ON THE FOURTH UNIVERSAL DEFINITIONS OF MYOCARDIAL INFARCTION. THE UPPER REFERENCE LIMIT (URL) OF TROPONIN, DEFINED THE 99TH PERCENTILE OF cTnI DISTRIBUTION IN A REFERENCE POPULATION, HAS BEEN CONFIRMED THE DECISION THRESHOLD FOR [place] DIAGNOSIS. Performed By: #### C BC #### [facility] [address] [place] [address] Dr. Jeimy Tenorio CBC AUTO DIFFon 09-29-2022 BASO # 0.1 103/ul Normal 0.0-0.1 [facility] Comment on above: Performed By: #### B MP, CMREP, LIPID #### [facility] [address] [place] [address] Dr. Jeimy Tenorio Basophils/100 WBC (Bld) 1.2 % Normal 0.2-2.0 [facility] Comment on above: Performed By: #### B MP, CMREP, LIPID #### [facility] [address] [place] [address] Dr. Jeimy Tenorio EO # 0.3 103/ul Normal 0.0-0.7 [facility] Comment on above: Performed By: #### B MP, CMREP, LIPID #### [facility] [address] [place] [address] Dr. Jeimy Tenorio Eosinophils/100 WBC (Bld) 4.9 % Normal 0.9-7.0 [facility] Comment on above: Performed By: #### B MP, CMREP, LIPID #### [facility] [address] [place] [address] Dr. Jeimy Tenorio Erythrocyte distribution width (RBC) [Ratio] 13.2 % Normal 11.0-15.0 [facility] Comment on above: Performed By: #### B MP, CMREP, LIPID #### [facility] [address] [place] [address] Dr. Jeimy Tenorio Hematocrit (Bld) [Volume fraction] 42.3 % Normal 42.0-54.0 [facility] Comment on above: Performed By: #### B MP, CMREP, LIPID #### [facility] [address] [place] [address] Dr. Jeimy Tenorio Hemoglobin (Bld) [Mass/Vol] 13.8 g/dL Critically low 14.0-18.0 [facility] Comment on above: Performed By: #### B MP, CMREP, LIPID #### [facility] [address] [place] [address] Dr. Jeimy Tenorio IG # 0.02 10e3/ul Normal 0.00-0.03 [facility] Comment on above: Performed By: #### B MP, CMREP, LIPID #### [facility] [address] [place] [address] Dr. Jeimy Tenorio IG % 0.3 % Normal 0.0-0.5 [facility] Comment on above: Performed By: #### B MP, CMREP, LIPID #### [facility] [address] [place] [address] Dr. Jeimy Tenorio LYMPH # 1.3 103/ul Normal 1.2-3.8 [facility] Comment on above: Performed By: #### B MP, CMREP, LIPID #### [facility] [address] [place] [address] Dr. Jeimy Tenorio Lymphocytes/100 WBC (Bld) 19.5 % Critically low 20.5-60.0 [facility] Comment on above: Performed By: #### B MP, CMREP, LIPID #### [facility] [address] [place] [address] Dr. Jeimy Tenorio MANUAL DIFF REQ NO Normal [facility] Comment on above: Performed By: #### B MP, CMREP, LIPID #### [facility] [address] [place] [address] Dr. Jeimy Tenorio MCH (RBC) [Entitic mass] 32.9 pg Normal 25.9-34.0 [facility] Comment on above: Performed By: #### B MP, CMREP, LIPID #### [facility] [address] [place] [address] Dr. Jeimy Tenorio MCHC (RBC) [Mass/Vol] 32.6 g/dL Normal 29.9-35.2 [facility] Comment on above: Performed By: #### B MP, CMREP, LIPID #### [facility] [address] [place] [address] Dr. Jeimy Tenorio MCV (RBC) [Entitic vol] 100.7 fL Critically high 80.0-94.0 [facility] Comment on above: Performed By: #### B MP, CMREP, LIPID #### [facility] [address] [place] [address] Dr. Jeimy Tenorio MONO # 0.7 103/ul Normal 0.3-0.8 [facility] Comment on above: Performed By: #### B MP, CMREP, LIPID #### [facility] [address] [place] [address] Dr. Jeimy Tenorio Monocytes/100 WBC (Bld) 9.9 % Normal 1.7-12.0 [facility] Comment on above: Performed By: #### B MP, CMREP, LIPID #### [facility] [address] [place] [address] Dr. Jeimy Tenorio NEUT # 4.3 103/ul Normal 1.4-6.5 [facility] Comment on above: Performed By: #### B MP, CMREP, LIPID #### [facility] [address] [place] [address] Dr. Jeimy Tenorio Neutrophils/100 WBC (Bld) 64.2 % Normal 43.0-75.0 [facility] Comment on above: Performed By: #### B MP, CMREP, LIPID #### [facility] [address] [address] [address] Jeimy Tenorio Platelet mean volume (Bld) [Entitic vol] 10.4 fL Normal 9.5-13.5 [facility] Comment on above: Performed By: #### B MP, CMREP, LIPID #### [facility] [address] [address] [address] Jeimy Tenorio PLT 209 103/ul Normal 150-450 [facility] Comment on above: Performed By: #### B MP, CMREP, LIPID #### [facility] [address] [place] [address] Dr. Jeimy Tenorio RBC 4.20 106/ul Critically low 4.70-6.10 [facility] Comment on above: Performed By: #### B MP, CMREP, LIPID #### [facility] [address] [place] [address] Dr. Jeimy Tenorio WBC 6.7 103/ul Normal 4.0-11.0 [facility] Comment on above: Performed By: #### B MP, CMREP, LIPID #### [facility] [address] [place] [address] Dr. Jeimy Tenorio DILANTINon 09-29-2022 Phenytoin [Mass/Vol] 23.7 ug/mL Critically high 10.0-20.0 [facility] Comment on above: Performed By: #### C BC #### [facility] [address] [place] [address] Dr. Jeimy Tenorio GLYCOHEMOGLOBIN A1Con 2021 ADA RECOMMENDATION SEE BELOW Normal [facility] Comment on above: Result Comment: ADA RECOMMENDED LIMIT 4.0 - 6.0 ADA THERAPEUTIC TARGET < 7.0 ACTION SUGGESTED > 7.0 Performed By: #### A 1C #### [facility] [address] [place] [address] Dr. Jeimy Tenorio Glucose [Mass/Vol] 105 mg/dL Normal [facility] Comment on above: Performed By: #### A 1C #### [facility] [address] [address] [address] Jeimy Tenorio HbA1c (Bld) [Mass fraction] 5.3 % Normal 4.5-6.2 [facility] Comment on above: Performed By: #### A 1C #### [facility] [address] [address] [address] Jeimy Tenorio LIPID PROFILEon 09-29-2022 CHOL-HDL RATIO NORM SEE BELOW Normal [facility] Comment on above: Result Comment: 3.3 - 4.4 LOW RISK 4.4 - 7.1 AVERAGE RISK 7.1 - 11.0 MODERATE RISK >11.0 HIGH RISK Performed By: #### B MP, CMREP, LIPID #### [facility] [address] [address] [address] Jeimy Tenorio Cholesterol [Mass/Vol] 178 mg/dL Normal <=200 [facility] Comment on above: Performed By: #### B MP, CMREP, LIPID #### [facility] [address] [address] [address] Jeimy Tenorio Cholesterol in HDL [Mass/Vol] 56 mg/dL Normal 40-60 [facility] Comment on above: Performed By: #### B MP, CMREP, LIPID #### [facility] [address] [address] [address] Jeimy Tenorio Cholesterol in LDL [Mass/Vol] 86.8 mg/dL Normal [facility] Comment on above: Performed By: #### B MP, CMREP, LIPID #### [facility] [address] [address] [address] Jeimy Tenorio Cholesterol.total/Cho lesterol in HDL [Mass ratio] 3.2 {ratio} Normal [facility] Comment on above: Performed By: #### B MP, CMREP, LIPID #### [facility] [address] [address] [address] Jeimy Tenorio HDL NORMAL > or = 60 mg/dl - LO W CARDIOVASCULAR RISK <40 mg/dl - HIGH CARDIOVASCULAR RISK Normal [facility] Comment on above: Performed By: #### B MP, CMREP, LIPID #### [facility] [address] [address] [address] Jeimy Tenorio LDL CALC NORMAL SEE BELOW Normal [facility] Comment on above: Result Comment: <100 mg/dl OPTIMAL 100 - 129 mg/dl NEAR OR ABOVE OPTIMAL 130 - 159 mg/dl BORDERLINE HIGH 160 - 189 mg/dl HIGH >190 mg/dl VERY HIGH Performed By: #### B MP, CMREP, LIPID #### [facility] [address] [address] [address] Jeimy Tenorio Triglyceride [Mass/Vol] 176 mg/dL Critically high <=150 [facility] Comment on above: Performed By: #### B MP, CMREP, LIPID #### [facility] [address] [address] [address] Jeimy Tenorio VLDL CALC 35.2 mg/dL Normal [facility] Comment on above: Performed By: #### B MP, CMREP, LIPID #### [facility] [address] [address] [address] Jeimy Tenorio LIVER PROFILEon 09-29-2022 Albumin [Mass/Vol] 3.5 g/dL Normal 3.4-5.0 [facility] Comment on above: Performed By: #### B MP, CMREP, LIPID #### [facility] [address] [address] [address] Jeimy Tenorio Albumin/Globulin [Mass ratio] 0.8 {ratio} Normal [facility] Comment on above: Performed By: #### B MP, CMREP, LIPID #### [facility] [address] [address] [address] Jeimy Tenorio ALP [Catalytic activity/Vol] 139 U/L Critically high 46-116 [facility] Comment on above: Performed By: #### B MP, CMREP, LIPID #### [facility] [address] [address] [address] Jeimy Tenorio ALT [Catalytic activity/Vol] 25 U/L Normal 16-63 [facility] Comment on above: Performed By: #### B MP, CMREP, LIPID #### [facility] [address] [place] [address] Dr. Jeimy Tenorio AST [Catalytic activity/Vol] 23 U/L Normal 15-37 [facility] Comment on above: Performed By: #### B MP, CMREP, LIPID #### [facility] [address] [place] [address] Dr. Jeimy Tenorio BILI, CONJUGATED 0.0 mg/dL Normal 0.0-0.2 [facility] Comment on above: Performed By: #### B MP, CMREP, LIPID #### [facility] [address] [place] [address] Dr. Jeimy Tenorio Bilirubin [Mass/Vol] 0.3 mg/dL Normal 0.2-1.0 [facility] Comment on above: Performed By: #### B MP, CMREP, LIPID #### [facility] [address] [place] [address] Dr. Jeimy Tenorio Globulin (S) [Mass/Vol] 4.3 g/dL Normal [facility] Comment on above: Performed By: #### B MP, CMREP, LIPID #### [facility] [address] [place] [address] Dr. Jeimy Tenorio Protein [Mass/Vol] 7.8 g/dL Normal 6.4-8.2 [facility] Comment on above: Performed By: #### B MP, CMREP, LIPID #### [facility] [address] [place] [address] Dr. Jeimy Tenorio PROF CHEM 8 (BAS METB)on Anion gap [Moles/Vol] 8.7 mmol/L Normal [facility] Comment on above: Performed By: #### B MP, CMREP, LIPID #### [facility] [address] [place] [address] Dr. Jeimy Tenorio Calcium [Mass/Vol] 8.7 mg/dL Normal 8.5-10.1 [facility] Comment on above: Performed By: #### B MP, CMREP, LIPID #### [facility] [address] [address] [address] Jeimy Tenorio Chloride [Moles/Vol] 104 mmol/L Normal 98-107 [facility] Comment on above: Performed By: #### B MP, CMREP, LIPID #### [facility] [address] [address] [address] Jeimy Tenorio CO2 [Moles/Vol] 29.8 mmol/L Normal 21.0-32.0 [facility] Comment on above: Performed By: #### B MP, CMREP, LIPID #### [facility] [address] [address] [address] Jeimy Tenorio Creatinine [Mass/Vol] 0.76 mg/dL Normal 0.70-1.30 [facility] Comment on above: Performed By: #### B MP, CMREP, LIPID #### [facility] [address] [place] [address] Dr. Jeimy Tenorio EGFR-AF FIJIAN >60 Normal >=60 [facility] Comment on above: Performed By: #### B MP, CMREP, LIPID #### [facility] [address] [place] [address] Dr. Jeimy Tenorio EGFR-NON AF FIJIAN >60 Normal >=60 [facility] Comment on above: Performed By: #### B MP, CMREP, LIPID #### [facility] [address] [place] [address] Dr. Jeimy Tenorio Glucose [Mass/Vol] 95 mg/dL Normal 74-106 [facility] Comment on above: Performed By: #### B MP, CMREP, LIPID #### [facility] [address] [address] [address] Jeimy Tenorio Potassium [Moles/Vol] 4.5 mmol/L Normal 3.5-5.1 [facility] Comment on above: Performed By: #### B MP, CMREP, LIPID #### [facility] [address] [address] [address] Jeimy Tenorio Sodium [Moles/Vol] 138 mmol/L Normal 136-145 [facility] Comment on above: Performed By: #### B MP, CMREP, LIPID #### [facility] [address] [place] [address] Dr. Jeimy Tenorio Urea nitrogen [Mass/Vol] 18.0 mg/dL Normal 7.0-18.0 [facility] Comment on above: Performed By: #### B MP, CMREP, LIPID #### [facility] [address] [place] [address] Dr. Jeimy Tenorio Urea nitrogen/Creatinine [Mass ratio] 23.7 mg/mg Normal [facility] Comment on above: Performed By: #### B MP, CMREP, LIPID #### [facility] [address] [place] [address] Dr. Jeimy Tenorio TSHon 09-29-2022 TSH 1.694 uIU/mL Normal 0.358-3.740 [facility] Comment on above: Performed By: #### B MP, CMREP, LIPID #### [facility] [address] [place] [address] Dr. Jeimy Tenorio CARDIAC SAWYER 3-6on 2 CK [Catalytic activity/Vol] 47 U/L Normal 39-308 [facility] Comment on above: Performed By: #### B MP, CMREP, LIPID #### [facility] [address] [place] [address] Dr. Jeimy Tenorio CK.MB [Mass/Vol] 0.77 ng/mL Normal <=3.60 [facility] Comment on above: Performed By: #### B MP, CMREP, LIPID #### [facility] [address] [place] [address] Dr. Jeimy Tenorio HSTROP 6.9 pg/mL Normal 4.0-76.1 [facility] Comment on above: Result Comment: CUT- OFF POINTS HAVE BEEN ESTABLISHED BASED ON THE FOURTH UNIVERSAL DEFINITIONS OF MYOCARDIAL INFARCTION. THE UPPER REFERENCE LIMIT (URL) OF TROPONIN, DEFINED THE 99TH PERCENTILE OF cTnI DISTRIBUTION IN A REFERENCE POPULATION, HAS BEEN CONFIRMED THE DECISION THRESHOLD FOR [place] DIAGNOSIS. Performed By: #### B MP, CMREP, LIPID #### [facility] [address] [place] [address] Dr. Jeimy Tenorio CK [Catalytic activity/Vol] 53 U/L Normal 39-308 [facility] Comment on above: Performed By: #### C BC #### [facility] [address] [place] [address] Dr. Jeimy Tenorio CK.MB [Mass/Vol] 0.80 ng/mL Normal <=3.60 [facility] Comment on above: Performed By: #### C BC #### [facility] [address] [place] [address] Dr. Jeimy Tenorio HSTROP 6.2 pg/mL Normal 4.0-76.1 [facility] Comment on above: Result Comment: CUT- OFF POINTS HAVE BEEN ESTABLISHED BASED ON THE FOURTH UNIVERSAL DEFINITIONS OF MYOCARDIAL INFARCTION. THE UPPER REFERENCE LIMIT (URL) OF TROPONIN, DEFINED THE 99TH PERCENTILE OF cTnI DISTRIBUTION IN A REFERENCE POPULATION, HAS BEEN CONFIRMED THE DECISION THRESHOLD FOR [place] DIAGNOSIS. Performed By: #### C BC #### [facility] [address] [place] [address] Dr. Jeimy Tenorio CBC AUTO DIFFon 06-12-2022 BASO # 0.1 103/ul Normal 0.0-0.1 [facility] Comment on above: Performed By: #### C BC #### [facility] [address] [place] [address] Dr. Jeimy Tenorio Basophils/100 WBC (Bld) 0.9 % Normal 0.2-2.0 [facility] Comment on above: Performed By: #### C BC #### [facility] [address] [place] [address] Dr. Jeimy Tenorio EO # 0.3 103/ul Normal 0.0-0.7 [facility] Comment on above: Performed By: #### C BC #### [facility] [address] [place] [address] Dr. Jeimy Tenorio Eosinophils/100 WBC (Bld) 5.2 % Normal 0.9-7.0 [facility] Comment on above: Performed By: #### C BC #### [facility] [address] [place] [address] Dr. Jeimy Tenorio Erythrocyte distribution width (RBC) [Ratio] 13.0 % Normal 11.0-15.0 [facility] Comment on above: Performed By: #### C BC #### [facility] [address] [place] [address] Dr. Jeimy Tenorio Hematocrit (Bld) [Volume fraction] 39.1 % Critically low 42.0-54.0 [facility] Comment on above: Performed By: #### C BC #### [facility] [address] [place] [address] Dr. Jeimy Tenorio Hemoglobin (Bld) [Mass/Vol] 13.2 g/dL Critically low 14.0-18.0 [facility] Comment on above: Performed By: #### C BC #### [facility] [address] [place] [address] Dr. Jeimy Tenorio IG # 0.03 10e3/ul Normal 0.00-0.03 [facility] Comment on above: Performed By: #### C BC #### [facility] [address] [place] [address] Dr. Jeimy Tenorio IG % 0.5 % Normal 0.0-0.5 [facility] Comment on above: Performed By: #### C BC #### [facility] [address] [place] [address] Dr. Jeimy Tenorio LYMPH # 1.7 103/ul Normal 1.2-3.8 [facility] Comment on above: Performed By: #### C BC #### [facility] [address] [place] [address] Dr. Jeimy Tenorio Lymphocytes/100 WBC (Bld) 26.0 % Normal 20.5-60.0 [facility] Comment on above: Performed By: #### C BC #### [facility] [address] [place] [address] Dr. Jeimy Tenorio MANUAL DIFF REQ NO Normal [facility] Comment on above: Performed By: #### C BC #### [facility] [address] [place] [address] Dr. Jeimy Tenorio MCH (RBC) [Entitic mass] 33.2 pg Normal 25.9-34.0 [facility] Comment on above: Performed By: #### C BC #### [facility] [address] [address] [address] Jeimy Tenorio MCHC (RBC) [Mass/Vol] 33.8 g/dL Normal 29.9-35.2 [facility] Comment on above: Performed By: #### C BC #### [facility] [address] [address] [address] Jeimy Tenorio MCV (RBC) [Entitic vol] 98.5 fL Critically high 80.0-94.0 [facility] Comment on above: Performed By: #### C BC #### [facility] [address] [address] [address] Jeimy Tenorio MONO # 0.8 103/ul Normal 0.3-0.8 [facility] Comment on above: Performed By: #### C BC #### [facility] [address] [place] [address] Dr. Jeimy Tenorio Monocytes/100 WBC (Bld) 12.2 % Critically high 1.7-12.0 [facility] Comment on above: Performed By: #### C BC #### [facility] [address] [place] [address] Dr. Jeimy Tenorio NEUT # 3.6 103/ul Normal 1.4-6.5 [facility] Comment on above: Performed By: #### C BC #### [facility] [address] [place] [address] Dr. Jeimy Tenorio Neutrophils/100 WBC (Bld) 55.2 % Normal 43.0-75.0 [facility] Comment on above: Performed By: #### C BC #### [facility] [address] [address] [address] Jeimy Tenorio Platelet mean volume (Bld) [Entitic vol] 9.9 fL Normal 9.5-13.5 [facility] Comment on above: Performed By: #### C BC #### [facility] [address] [place] [address] Dr. Jeimy Tenorio PLT 174 103/ul Normal 150-450 [facility] Comment on above: Performed By: #### C BC #### [facility] [address] [place], [place] [address] Dr. Jeimy Tenorio RBC 3.97 106/ul Critically low 4.70-6.10 [facility] Comment on above: Performed By: #### C BC #### [facility] [address] [place], [place] [address] Dr. Jeimy Tenorio WBC 6.5 103/ul Normal 4.0-11.0 [facility] Comment on above: Performed By: #### C BC #### [facility] [address] [place], [place] [address] Dr. Jeimy Tenorio CTA CHEST WO W [...] BINOR SAID Date: 2022-06-12 00:21 Normal [facility] Covid-19 PCR (CVDTB)on 05-22 SARS-CoV-2 (COVID-19) RNA ALEX+probe Ql (Unsp spec) Not detected Normal NOT DETECTED [facility] Comment on above: Result Comment: When [...] for this test is supported by the Field Counsel of Health and Human Service's declaration that [...] By: #### B MP, CMREP, LIPID #### [facility] [address] [place] [address] Dr. Jeimy Tenorio ER URINE PROFILEon 2 Bilirubin Ql (U) Negative Normal NEGATIVE [facility] Comment on above: Performed By: #### E RUR #### [facility] [address] [place] [address] Dr. Jeimy Tenorio Clarity (U) CLEAR Normal CLEAR [facility] Comment on above: Performed By: #### E RUR #### [facility] [address] [place] [address] Dr. Jeimy Tenorio Color (U) LT. YELLOW Normal YELLOW [facility] Comment on above: Performed By: #### E RUR #### [facility] [address] [place] [address] Dr. Jeimy Tenorio ERUAHD A micrscopic examination will be performed if indicated. Normal [facility] Comment on above: Performed By: #### E RUR #### [facility] [address] [place] [address] Dr. Jeimy Tenorio Glucose Ql (U) Negative Normal NEGATIVE [facility] Comment on above: Performed By: #### E RUR #### [facility] [address] [place] [address] Dr. Jeimy Tenorio Hemoglobin Ql (U) Negative Normal NEGATIVE [facility] Comment on above: Performed By: #### E RUR #### [facility] [address] [place] [address] Dr. Jeimy Tenorio Ketones Ql (U) TRACE Abnormal NEGATIVE [facility] Comment on above: Performed By: #### E RUR #### [facility] [address] [place] [address] Dr. Jeimy Tenorio LEUKOCYTES Negative Normal NEGATIVE [facility] Comment on above: Performed By: #### E RUR #### [facility] [address] [place] [address] Dr. Jeimy Tenorio Nitrite Ql (U) Negative Normal NEGATIVE [facility] Comment on above: Performed By: #### E RUR #### [facility] [address] [place] [address] Dr. Jeimy Tenorio pH (U) 5.5 [pH] Normal 5-9 [facility] Comment on above: Performed By: #### E RUR #### [facility] [address] [place] [address] Dr. Jeimy Tenorio SPEC GRAVITY 1.010 Normal 1.005-<=1.02 5 [facility] Comment on above: Performed By: #### E RUR #### [facility] [address] [place] [address] Dr. Jeimy Tenorio UA PROTEIN Negative Normal NEGATIVE/ TRACE [facility] Comment on above: Performed By: #### E RUR #### [facility] [address] [place] [address] Dr. Jeimy Tenorio UR MICRO IND NOT INDICATED Normal [facility] Comment on above: Performed By: #### E RUR #### [facility] [address] [place] [address] Dr. Jeimy Tenorio Urobilinogen Qn (U) 0.2 {Raphael'U}/dL Normal 0.2 - 1. 0 [facility] Comment on above: Performed By: #### E RUR #### [facility] [address] [address] [address] Jeimy Tenorio GLYCOHEMOGLOBIN A1Con 2021 ADA RECOMMENDATION SEE BELOW Normal [facility] Comment on above: Result Comment: ADA RECOMMENDED LIMIT 4.0 - 6.0 ADA THERAPEUTIC TARGET < 7.0 ACTION SUGGESTED > 7.0 Performed By: #### C BC #### [facility] [address] [address] [address] Jeimy Tenorio Glucose [Mass/Vol] 103 mg/dL Normal [facility] Comment on above: Performed By: #### C BC #### [facility] [address] [place] [address] Dr. Jeimy Tenorio HbA1c (Bld) [Mass fraction] 5.2 % Normal 4.5-6.2 [facility] Comment on above: Performed By: #### C BC #### [facility] [address] [place] [address] Dr. Jeimy Tenorio LIPID PROFILEon 06-12-2022 CHOL-HDL RATIO NORM SEE BELOW Normal [facility] Comment on above: Result Comment: 3.3 - 4.4 LOW RISK 4.4 - 7.1 AVERAGE RISK 7.1 - 11.0 MODERATE RISK >11.0 HIGH RISK Performed By: #### B MP, CMREP, LIPID #### [facility] [address] [place] [address] Dr. Jeimy Tenorio Cholesterol [Mass/Vol] 142 mg/dL Normal <=200 [facility] Comment on above: Performed By: #### B MP, CMREP, LIPID #### [facility] [address] [place] [address] Dr. Jeimy Tenorio Cholesterol in HDL [Mass/Vol] 49 mg/dL Normal 40-60 [facility] Comment on above: Performed By: #### B MP, CMREP, LIPID #### [facility] [address] [address] [address] Jeimy Tenorio Cholesterol in LDL [Mass/Vol] 64.6 mg/dL Normal [facility] Comment on above: Performed By: #### B MP, CMREP, LIPID #### [facility] [address] [place] [address] Dr. Jeimy Tenorio Cholesterol.total/Cho lesterol in HDL [Mass ratio] 2.9 {ratio} Normal [facility] Comment on above: Performed By: #### B MP, CMREP, LIPID #### [facility] [address] [place] [address] Dr. Jeimy Tenorio HDL NORMAL > or = 60 mg/dl - LO W CARDIOVASCULAR RISK <40 mg/dl - HIGH CARDIOVASCULAR RISK Normal [facility] Comment on above: Performed By: #### B MP, CMREP, LIPID #### [facility] [address] [place] [address] Dr. Jeimy Tenorio LDL CALC NORMAL SEE BELOW Normal [facility] Comment on above: Result Comment: <100 mg/dl OPTIMAL 100 - 129 mg/dl NEAR OR ABOVE OPTIMAL 130 - 159 mg/dl BORDERLINE HIGH 160 - 189 mg/dl HIGH >190 mg/dl VERY HIGH Performed By: #### B MP, CMREP, LIPID #### [facility] [address] [place] [address] Dr. Jeimy Tenorio Triglyceride [Mass/Vol] 142 mg/dL Normal <=150 [facility] Comment on above: Performed By: #### B MP, CMREP, LIPID #### [facility] [address] [place] [address] Dr. Jeimy Tenorio VLDL CALC 28.4 mg/dL Normal [facility] Comment on above: Performed By: #### B MP, CMREP, LIPID #### [facility] [address] [place] [address] Dr. Jeimy Tenorio PROF CHEM 8 (BAS METB)on Anion gap [Moles/Vol] 10.1 mmol/L Normal [facility] Comment on above: Performed By: #### B MP, CMREP, LIPID #### [facility] [address] [place] [address] Dr. Jeimy Tenorio Calcium [Mass/Vol] 8.0 mg/dL Critically low 8.5-10.1 [facility] Comment on above: Performed By: #### B MP, CMREP, LIPID #### [facility] [address] [address] [address] Jeimy Tenorio Chloride [Moles/Vol] 104 mmol/L Normal 98-107 [facility] Comment on above: Performed By: #### B MP, CMREP, LIPID #### [facility] [address] [place] [address] Dr. Jeimy Tenorio CO2 [Moles/Vol] 27.0 mmol/L Normal 21.0-32.0 [facility] Comment on above: Performed By: #### B MP, CMREP, LIPID #### [facility] [address] [place] [address] Dr. Jeimy Tenorio Creatinine [Mass/Vol] 0.79 mg/dL Normal 0.70-1.30 [facility] Comment on above: Performed By: #### B MP, CMREP, LIPID #### [facility] [address] [place] [address] Dr. Jeimy Tenorio EGFR-AF FIJIAN >60 Normal >=60 [facility] Comment on above: Performed By: #### B MP, CMREP, LIPID #### [facility] [address] [place] [address] Dr. Jeimy Tenorio EGFR-NON AF FIJIAN >60 Normal >=60 [facility] Comment on above: Performed By: #### B MP, CMREP, LIPID #### [facility] [address] [place] [address] Dr. Jeimy Tenorio Glucose [Mass/Vol] 101 mg/dL Normal 74-106 [facility] Comment on above: Performed By: #### B MP, CMREP, LIPID #### [facility] [address] [place] [address] Dr. Jeimy Tenorio Potassium [Moles/Vol] 4.1 mmol/L Normal 3.5-5.1 [facility] Comment on above: Performed By: #### B MP, CMREP, LIPID #### [facility] [address] [address] [address] Jeimy Tenorio Sodium [Moles/Vol] 137 mmol/L Normal 136-145 [facility] Comment on above: Performed By: #### B MP, CMREP, LIPID #### [facility] [address] [address] [address] Jeimy Tenorio Urea nitrogen [Mass/Vol] 15.0 mg/dL Normal 7.0-18.0 [facility] Comment on above: Performed By: #### B MP, CMREP, LIPID #### [facility] [address] [address] [address] Jeimy Tenorio Urea nitrogen/Creatinine [Mass ratio] 19.0 mg/mg Normal [facility] Comment on above: Performed By: #### B MP, CMREP, LIPID #### [facility] [address] [place] [address] Dr. Jeimy Tenorio CARDIAC SAWYER ADMITon 022 CK [Catalytic activity/Vol] 50 U/L Normal 39-308 [facility] Comment on above: Performed By: #### C BC #### [facility] [address] [place] [address] Dr. Jeimy Tenorio CK.MB [Mass/Vol] 0.80 ng/mL Normal <=3.60 [facility] Comment on above: Performed By: #### C BC #### [facility] [address] [place] [address] Dr. Jeimy Tenorio HSTROP 5.2 pg/mL Normal 4.0-76.1 [facility] Comment on above: Result Comment: CUT- OFF POINTS HAVE BEEN ESTABLISHED BASED ON THE FOURTH UNIVERSAL DEFINITIONS OF MYOCARDIAL INFARCTION. THE UPPER REFERENCE LIMIT (URL) OF TROPONIN, DEFINED THE 99TH PERCENTILE OF cTnI DISTRIBUTION IN A REFERENCE POPULATION, HAS BEEN CONFIRMED THE DECISION THRESHOLD FOR [place] DIAGNOSIS. Performed By: #### C BC #### [facility] [address] [place] [address] Dr. Jeimy Tenorio MAGALIE 41 ng/mL Normal 16-96 [facility] Comment on above: Performed By: #### C BC #### [facility] [address] [place] [address] Dr. Jeimy Tenorio CBC AUTO DIFFon 06-11-2022 BASO # 0.0 103/ul Normal 0.0-0.1 [facility] Comment on above: Performed By: #### C BC #### [facility] [address] [place] [address] Dr. Jeimy Tenorio Basophils/100 WBC (Bld) 0.6 % Normal 0.2-2.0 [facility] Comment on above: Performed By: #### C BC #### [facility] [address] [place] [address] Dr. Jeimy Tenorio EO # 0.4 103/ul Normal 0.0-0.7 [facility] Comment on above: Performed By: #### C BC #### [facility] [address] [place] [address] Dr. Jeimy Tenorio Eosinophils/100 WBC (Bld) 4.9 % Normal 0.9-7.0 [facility] Comment on above: Performed By: #### C BC #### [facility] [address] [place] [address] Dr. Jeimy Tenorio Erythrocyte distribution width (RBC) [Ratio] 13.1 % Normal 11.0-15.0 [facility] Comment on above: Performed By: #### C BC #### [facility] [address] [place] [address] Dr. Jeimy Tenorio Hematocrit (Bld) [Volume fraction] 38.1 % Critically low 42.0-54.0 [facility] Comment on above: Performed By: #### C BC #### [facility] [address] [place] [address] Dr. Jeimy Tenorio Hemoglobin (Bld) [Mass/Vol] 13.0 g/dL Critically low 14.0-18.0 [facility] Comment on above: Performed By: #### C BC #### [facility] [address] [place] [address] Dr. Jeimy Tenorio IG # 0.02 10e3/ul Normal 0.00-0.03 [facility] Comment on above: Performed By: #### C BC #### [facility] [address] [place] [address] Dr. Jeimy Tenorio IG % 0.3 % Normal 0.0-0.5 [facility] Comment on above: Performed By: #### C BC #### [facility] [address] [place] [address] Dr. Jeimy Tenorio LYMPH # 1.7 103/ul Normal 1.2-3.8 [facility] Comment on above: Performed By: #### C BC #### [facility] [address] [place] [address] Dr. Jeimy Tenorio Lymphocytes/100 WBC (Bld) 22.9 % Normal 20.5-60.0 [facility] Comment on above: Performed By: #### C BC #### [facility] [address] [place] [address] Dr. Jeimy Tenorio MANUAL DIFF REQ NO Normal [facility] Comment on above: Performed By: #### C BC #### [facility] [address] [place] [address] Dr. Jeimy Tenorio MCH (RBC) [Entitic mass] 33.5 pg Normal 25.9-34.0 [facility] Comment on above: Performed By: #### C BC #### [facility] [address] [place] [address] Dr. Jeimy Tenorio MCHC (RBC) [Mass/Vol] 34.1 g/dL Normal 29.9-35.2 [facility] Comment on above: Performed By: #### C BC #### [facility] [address] [place] [address] Dr. Jeimy Tenorio MCV (RBC) [Entitic vol] 98.2 fL Critically high 80.0-94.0 [facility] Comment on above: Performed By: #### C BC #### [facility] [address] [place] [address] Dr. Jeimy Tenorio MONO # 0.8 103/ul Normal 0.3-0.8 [facility] Comment on above: Performed By: #### C BC #### [facility] [address] [place] [address] Dr. Jeimy Tenorio Monocytes/100 WBC (Bld) 11.5 % Normal 1.7-12.0 [facility] Comment on above: Performed By: #### C BC #### [facility] [address] [address] [address] Jeimy Tenorio NEUT # 4.3 103/ul Normal 1.4-6.5 [facility] Comment on above: Performed By: #### C BC #### [facility] [address] [place] [address] Dr. Jeimy Tenorio Neutrophils/100 WBC (Bld) 59.8 % Normal 43.0-75.0 [facility] Comment on above: Performed By: #### C BC #### [facility] [address] [place] [address] Dr. Jeimy Tenorio Platelet mean volume (Bld) [Entitic vol] 9.8 fL Normal 9.5-13.5 [facility] Comment on above: Performed By: #### C BC #### [facility] [address] [place] [address] Dr. Jeimy Tenorio PLT 181 103/ul Normal 150-450 [facility] Comment on above: Performed By: #### C BC #### [facility] [address] [place] [address] Dr. Jeimy Tenorio RBC 3.88 106/ul Critically low 4.70-6.10 [facility] Comment on above: Performed By: #### C BC #### [facility] [address] [place] [address] Dr. Jeimy Tenorio WBC 7.2 103/ul Normal 4.0-11.0 [facility] Comment on above: Performed By: #### C BC #### [facility] [address] [place] [address] Dr. Jeimy Tenorio D-DIMERon 06-11-2022 D-DIMER 0.63 mg/L FEU Critically high <=0.59 [facility] Comment on above: Performed By: #### D DIM #### [facility] [address] [place] [address] Dr. Jeimy Tenorio D-DIMER COMMENTS SEE BELOW Normal [facility] Comment on above: Result Comment: Incr [...] hospitalization. Performed By: #### D DIM #### [facility] [address] [place] [address] Dr. Jeimy Tenorio PROF 14(COMP METB)on 022 Albumin [Mass/Vol] 3.3 g/dL Critically low 3.4-5.0 [facility] Comment on above: Performed By: #### C BC #### [facility] [address] [place] [address] Dr. Jeimy Tenorio Albumin/Globulin [Mass ratio] 0.8 {ratio} Normal [facility] Comment on above: Performed By: #### C BC #### [facility] [address] [place] [address] Dr. Jeimy Tenorio ALP [Catalytic activity/Vol] 160 U/L Critically high 46-116 [facility] Comment on above: Performed By: #### C BC #### [facility] [address] [place] [address] Dr. Jeimy Tenorio ALT [Catalytic activity/Vol] 26 U/L Normal 16-63 [facility] Comment on above: Performed By: #### C BC #### [facility] [address] [place] [address] Dr. Jeimy Tenorio Anion gap [Moles/Vol] 10.4 mmol/L Normal [facility] Comment on above: Performed By: #### C BC #### [facility] [address] [place] [address] Dr. Jeimy Tenorio AST [Catalytic activity/Vol] 16 U/L Normal 15-37 [facility] Comment on above: Performed By: #### C BC #### [facility] [address] [address] [address] Jeimy Tenorio Bilirubin [Mass/Vol] 0.2 mg/dL Normal 0.2-1.0 [facility] Comment on above: Performed By: #### C BC #### [facility] [address] [address] [address] Jeimy Tenorio Calcium [Mass/Vol] 8.2 mg/dL Critically low 8.5-10.1 [facility] Comment on above: Performed By: #### C BC #### [facility] [address] [address] [address] Jeimy Tenorio Chloride [Moles/Vol] 105 mmol/L Normal 98-107 [facility] Comment on above: Performed By: #### C BC #### [facility] [address] [place] [address] Dr. Jeimy Tenorio CO2 [Moles/Vol] 26.5 mmol/L Normal 21.0-32.0 [facility] Comment on above: Performed By: #### C BC #### [facility] [address] [address] [address] Jeimy Tenorio Creatinine [Mass/Vol] 0.96 mg/dL Normal 0.70-1.30 [facility] Comment on above: Performed By: #### C BC #### [facility] [address] [address] [address] Jeimy Tenorio EGFR-AF FIJIAN >60 Normal >=60 [facility] Comment on above: Performed By: #### C BC #### [facility] [address] [address] [address] Jeimy Tenorio EGFR-NON AF FIJIAN >60 Normal >=60 [facility] Comment on above: Performed By: #### C BC #### [facility] [address] [place] [address] Dr. Jeimy Tenorio Globulin (S) [Mass/Vol] 4.0 g/dL Normal [facility] Comment on above: Performed By: #### C BC #### [facility] [address] [address] [address] Jeimy Tenorio Glucose [Mass/Vol] 140 mg/dL Critically high 74-106 T [facility] Comment on above: Performed By: #### C BC #### [facility] [address] [address] [address] Jeimy Tenorio Potassium [Moles/Vol] 3.9 mmol/L Normal 3.5-5.1 [facility] Comment on above: Performed By: #### C BC #### [facility] [address] [address] [address] Jeimy Tenorio Protein [Mass/Vol] 7.3 g/dL Normal 6.4-8.2 [facility] Comment on above: Performed By: #### C BC #### [facility] [address] [address] [address] Jeimy Tenorio Sodium [Moles/Vol] 138 mmol/L Normal 136-145 [facility] Comment on above: Performed By: #### C BC #### [facility] [address] [address] [address] Jeimy Tenorio Urea nitrogen [Mass/Vol] 15.0 mg/dL Normal 7.0-18.0 [facility] Comment on above: Performed By: #### C BC #### [facility] [address] [address] [address] Jeimy Tenorio Urea nitrogen/Creatinine [Mass ratio] 15.6 mg/mg Normal [facility] Comment on above: Performed By: #### C BC #### [facility] [address] [address] [address] Jeimy Tenorio [facility] [place] 10-30-2021 Albumin [Mass/Vol] 4.3 g/dL Normal 3.6-5.1 [facility] Comment on above: Performed By: #### 7 56, 5363, [id number] #### [facility] [address], [address] [place] [id number] Resident Care Manager Rn: Yash Campuzano MD Albumin/Globulin [Mass ratio] 1.3 {ratio} Normal 1.0-2.5 [facility] Comment on above: Performed By: #### 7 13, 7600, [id number] #### [facility] of [address], [address] [place] [address] Resident Care Manager Rn: Yash Campuzano MD ALP [Catalytic activity/Vol] 152 U/L High 35-144 [facility] Comment on above: Performed By: #### 7 13, 7600, [id number] #### [facility] of [address], [address] [place] [address] Resident Care Manager Rn: Yash Campuzano MD ALT [Catalytic activity/Vol] 30 U/L Normal 9-46 [facility] Comment on above: Performed By: #### 7 13, 7600, [id number] #### [facility] of [address], [address] [place] [address] Resident Care Manager Rn: Yash Campuzano MD AST [Catalytic activity/Vol] 26 U/L Normal 10-35 [facility] Comment on above: Performed By: #### 7 13, 0, [id number] #### [facility] of [address], [address] [place] [address] Resident Care Manager Rn: Yash Campuzano MD Bilirubin [Mass/Vol] 0.4 mg/dL Normal 0.2-1.2 [facility] Comment on above: Performed By: #### 7 13, 7600, 05605 #### [facility] of [address], [address] [place] [address] Resident Care Manager Rn: Yash Campuzano MD BUN/CREATININE RATIO NOT APPLICABLE Normal 6-22 [facility] Comment on above: Performed By: #### 7 13, 7600, [id number] #### [facility] of [address], [address] [place] [address] Resident Care Manager Rn: Yash Campuzano MD Calcium [Mass/Vol] 8.8 mg/dL Normal 8.6-10.3 [facility] Comment on above: Performed By: #### 7 13, 7600, [id number] #### [facility] of [address], [address] [place] [address] Resident Care Manager Rn: Yash Campuzano MD Chloride [Moles/Vol] 104 mmol/L Normal 98-110 [facility] Comment on above: Performed By: #### 7 , 7599, 98519 #### [facility] [address] [place] [address] Resident Care Manager Rn: Yash Campuzano MD CO2 [Moles/Vol] 25 mmol/L Normal 20-32 [facility] Comment on above: Performed By: #### 7 , 7599, [id number] #### [facility] [address] [address] Resident Care Manager Rn: Yash Campuzano MD Creatinine [Mass/Vol] 0.76 mg/dL Normal 0.70-1.25 [facility] Comment on above: Result Comment: For patients >49 years of age, the reference limit for Creatinine is approximately 13% higher for people identified as -Slovenian. Performed By: #### 7 , 7599, 19832 #### [facility] [place] [address] Resident Care Manager Rn: Yash Campuzano MD eGFR NON-AFR. FIJIAN 95 mL/min/1.73m2 Normal > OR = 60 [facility] Comment on above: Performed By: #### 7 , 7599, 22384 #### [facility] [place] [address] Resident Care Manager Rn: Yash Campuzano MD GFR/1.73 sq M.predicted among blacks MDRD (S/P/Bld) [Vol rate/Area] 110 mL/min/{1.73_m2} Normal > OR = 60 [facility] Comment on above: Performed By: #### 7 , 7599, 09197 #### [facility] [place] [address] Resident Care Manager Rn: Yash Campuzano MD Globulin (S) [Mass/Vol] 3.2 g/dL Normal 1.9-3.7 [facility] Comment on above: Performed By: #### 7 , 7599, 56253 #### [facility] [place] [address] Resident Care Manager Rn: Yash Campuzano MD Glucose [Mass/Vol] 103 mg/dL High 65-99 [facility] Comment on above: Result Comment: Fasting reference interval For someone without known diabetes, a glucose value between 100 and 125 mg/dL is consistent with prediabetes and should be confirmed with a follow-up test. Performed By: #### 7 13, 0, 06544 #### [facility] [place] [address] Resident Care Manager Rn: Yash Campuzano MD Potassium [Moles/Vol] 4.7 mmol/L Normal 3.5-5.3 [facility] Comment on above: Performed By: #### 7 13, 7599, 13190 #### [facility] [place] [address] Resident Care Manager Rn: Yash Campuzano MD Protein [Mass/Vol] 7.5 g/dL Normal 6.1-8.1 [facility] Comment on above: Performed By: #### 7 13, 0, 25648 #### [facility] [place] [address] Resident Care Manager Rn: Yash Campuzano MD Sodium [Moles/Vol] 137 mmol/L Normal 135-146 [facility] Comment on above: Performed By: #### 7 13, 0, 81219 #### [facility] [place] [address] Resident Care Manager Rn: Yash Campuzano MD Urea nitrogen [Mass/Vol] 15 mg/dL Normal 7-25 [facility] Comment on above: Performed By: #### 7 13, 7600, 15602 #### [facility] [place] [address] Resident Care Manager Rn: Yash Campuzano MD LIPID PANEL, [facility] 12 Cholesterol [Mass/Vol] 180 mg/dL Normal <200 [facility] Comment on above: Order Comment: FASTI NG:YES FASTING: YES Performed By: #### 7 13, 7600, 89437 #### [facility] [address], [address] [place] [address] Resident Care Manager Rn: Yash Campuzano MD Cholesterol in HDL [Mass/Vol] 50 mg/dL Normal > OR = 40 [facility] Comment on above: Order Comment: FASTI NG:YES FASTING: YES Performed By: #### 7 , 7599, 98940 #### [facility] [address], [address] [place] [address] Resident Care Manager Rn: Yash Campuzano MD Cholesterol in LDL [Mass/Vol] [...] LDL-C. Gennaro ALMANZAR et al. KO. 2013;310(19): 9472-5584 (http://education.[employer]/faq/RNN080) Performed By: #### 7 , 7599, 94725 #### [facility] [address], [address] [place] [address] Resident Care Manager Rn: Yash Campuzano MD Cholesterol.total/Cho lesterol in HDL [Mass ratio] 3.6 {ratio} Normal <5.0 [facility] Comment on above: Order Comment: FASTI NG:YES FASTING: YES Performed By: #### 7 , 7599, 99176 #### [facility] [address], [address] [place] [address] Resident Care Manager Rn: Yash Campuzano MD NON HDL CHOLESTEROL 130 mg/dL (calc) High <130 [facility] Comment on above: Order Comment: FASTI NG:YES FASTING: YES Result Comment: For patients with diabetes plus 1 major ASCVD risk factor, treating to a non-HDL-C goal of <100 mg/dL (LDL-C of <70 mg/dL) is considered a therapeutic option. Performed By: #### 7 13, 0, 70576 #### [facility] [place] [address] Resident Care Manager Rn: Yash Campuzano MD Triglyceride [Mass/Vol] 280 mg/dL High <150 [facility] Comment on above: Order Comment: FASTI NG:YES FASTING: YES Result Comment: If a non-fasting specimen was collected, consider repeat triglyceride testing on a fasting specimen if clinically indicated. Marquise et al. J. of Clin. Lipidol. 2015;9:129-169. Performed By: #### 7 13, 7599, 29244 #### [facility] [place] [address] Resident Care Manager Rn: Yash Campuzano MD PHENYTOINon 10-30-2021 Phenytoin [Mass/Vol] 18.9 ug/mL Normal 10.0-20.0 [facility] Comment on above: Performed By: #### 7 , 7599, 48589 #### [facility] [place] [address] Resident Care Manager Rn: Yash Campuzano MD CBC (INCLUDES DIFF/PLT)on Basophils (Bld) [#/Vol] 0.071 10*3/uL Normal 0-200 [facility] Comment on above: Performed By: #### 7 , 7599, 6399 #### [facility] [place] [address] Resident Care Manager Rn: Yash Campuzano MD Basophils/100 WBC (Bld) 1.2 % Normal [facility] Comment on above: Performed By: #### 7 , 7600, 6399 #### [facility] [place] [address] Resident Care Manager Rn: Yash Campuzano MD Eosinophils (Bld) [#/Vol] 0.277 10*3/uL Normal 15-500 [facility] Comment on above: Performed By: #### 7 , 7599, 6399 #### [facility] [address] [place] [address] Resident Care Manager Rn: Yash Campuzano MD Eosinophils/100 WBC (Bld) 4.7 % Normal [facility] Comment on above: Performed By: #### 7 , 7599, 6399 #### [facility] of [address], [address] [place] [address] Resident Care Manager Rn: Yash Campuzano MD Erythrocyte distribution width (RBC) [Ratio] 12.8 % Normal 11.0-15.0 [facility] Comment on above: Performed By: #### 7 , 7599, 6399 #### [facility] of [place] [address] Resident Care Manager Rn: Yash Campuzano MD Hematocrit (Bld) [Volume fraction] 42.1 % Normal 38.5-50.0 [facility] Comment on above: Performed By: #### 7 , 7599, 63 #### [facility] of [place] [address] Resident Care Manager Rn: Yash Campuzano MD Hemoglobin (Bld) [Mass/Vol] 14.9 g/dL Normal 13.2-17.1 [facility] Comment on above: Performed By: #### 7 , 7599, 6399 #### [facility] of [place] [address] Resident Care Manager Rn: Yash Campuzano MD Lymphocytes (Bld) [#/Vol] 1.068 10*3/uL Normal 850-3900 [facility] Comment on above: Performed By: #### 7 , 7599, 6399 #### [facility] of [address], [address] [place] [address] Resident Care Manager Rn: Yash Campuzano MD Lymphocytes/100 WBC (Bld) 18.1 % Normal [facility] Comment on above: Performed By: #### 7 , 7599, 6399 #### [facility] of [place] [address] Resident Care Manager Rn: Yash Campuzano MD MCH (RBC) [Entitic mass] 32.9 pg Normal 27.0-33.0 [facility] Comment on above: Performed By: #### 7 13, 7599, 6399 #### [facility] of [place] [address] Resident Care Manager Rn: Yash Campuzano MD MCHC (RBC) [Mass/Vol] 35.4 g/dL Normal 32.0-36.[address] [facility] Comment on above: Performed By: #### 7 13, 7599, 6399 #### [facility] of [place] [address] Resident Care Manager Rn: Yash Campuzano MD MCV (RBC) [Entitic vol] 92.9 fL Normal 80.0-100.0 [facility] Comment on above: Performed By: #### 7 13, 7599, 6399 #### [facility] of [place] [address] Resident Care Manager Rn: Yash Campuzano MD Monocytes (Bld) [#/Vol] 0.531 10*3/uL Normal 200-950 [facility] Comment on above: Performed By: #### 7 , 7599, 6399 #### [facility] of [place] [address] Resident Care Manager Rn: Yash Campuzano MD Monocytes/100 WBC (Bld) 9.0 % Normal [facility] Comment on above: Performed By: #### 7 , 7599, 6399 #### [facility] of [place] [address] Resident Care Manager Rn: Yash Campuzano MD Neutrophils (Bld) [#/Vol] 3.953 10*3/uL Normal 0446-3307 [facility] Comment on above: Performed By: #### 7 , 7599, 6399 #### [facility] of [place] [address] Resident Care Manager Rn: Yash Campuzano MD Neutrophils/100 WBC (Bld) 67 % Normal [facility] Comment on above: Performed By: #### 7 , 7599, 6399 #### [facility] of [address], [address] [place] [address] Resident Care Manager Rn: Yash Campuzano MD Platelet mean volume (Bld) [Entitic vol] 11.0 fL Normal 7.5-12.5 [facility] Comment on above: Performed By: #### 7 13, 7599, 6399 #### [facility] of [address], [address] [place] [address] Resident Care Manager Rn: Yash Campuzano MD Platelets (Bld) [#/Vol] 200 10*3/uL Normal 140-400 [facility] Comment on above: Performed By: #### 7 13, 7599, 6399 #### [facility] of [address], [address] [place] [address] Resident Care Manager Rn: Yash Campuzano MD RBC (Bld) [#/Vol] 4.53 10*6/uL Normal 4.20-5.80 [facility] Comment on above: Performed By: #### 7 13, 7599, 6399 #### [facility] of [address], [address] [place] [address] Resident Care Manager Rn: Yash Campuzano MD WBC (Bld) [#/Vol] 5.9 10*3/uL Normal 3.8-10.8 [facility] Comment on above: Performed By: #### 7 13, 7599, 6399 #### [facility] of [address], [address] [place] [address] Resident Care Manager Rn: Yash Campuzano MD LIPID PANEL, [facility] 05-2 Cholesterol [Mass/Vol] 218 mg/dL High <200 [facility] Comment on above: Order Comment: FASTI NG:YES FASTING: YES Performed By: #### 7 13, 760, 6399 #### [facility] of [address], [address] [place] [address] Resident Care Manager Rn: Yash Campuzano MD Cholesterol in HDL [Mass/Vol] 55 mg/dL Normal > OR = 40 [facility] Comment on above: Order Comment: FASTI NG:YES FASTING: YES Performed By: #### 7 , 834, 5636 #### [facility] [address], [address] [place] [address] Resident Care Manager Rn: Yash Campuzano MD Cholesterol in LDL [Mass/Vol] [...] LDL-C. Gennaro SS et al. KO. 2013;310(19): 3479-6660 (http://education.[employer]/faq/BEN520) Performed By: #### 7 , 542, 2163 #### [facility] [address], [address] [place] [address] Resident Care Manager Rn: Yash Campuzano MD Cholesterol.total/Cho lesterol in HDL [Mass ratio] 4.0 {ratio} Normal <5.0 [facility] Comment on above: Order Comment: FASTI NG:YES FASTING: YES Performed By: #### 7 , 333, 2032 #### [facility] [address], [address] [place] [address] Resident Care Manager Rn: Yash Campuzano MD NON HDL CHOLESTEROL 163 mg/dL (calc) High <130 [facility] Comment on above: Order Comment: FASTI NG:YES FASTING: YES Result Comment: For patients with diabetes plus 1 major ASCVD risk factor, treating to a non-HDL-C goal of <100 mg/dL (LDL-C of <70 mg/dL) is considered a therapeutic option. Performed By: #### 7 , 7233, 3220 #### [facility] [address], [address] [place] [address] Resident Care Manager Rn: Yash Campuzano MD Triglyceride [Mass/Vol] 200 mg/dL High <150 [facility] Comment on above: Order Comment: FASTI NG:YES FASTING: YES Result Comment: If a non-fasting specimen was collected, consider repeat triglyceride testing on a fasting specimen if clinically indicated. Marquise et al. J. of Clin. Lipidol. 2015;9:129-169. Performed By: #### 7 13, 7600, 6399 #### [facility] [address], [address] [place] [address] Resident Care Manager Rn: Yash Campuzano MD PHENYTOINon 04-18-2021 Phenytoin [Mass/Vol] 25.0 ug/mL High 10.0-20.0 Ques t [facility] Comment on above: Performed By: #### 7 13, 7600, 6399 #### [facility] [address], [address] [place] [address] Resident Care Manager Rn: Yash Campuzano MD APTTon 11-20-2020 aPTT Coag (Bld) [Time] 33.4 s Normal 25.0-35.0 [facility] Comment on above: Result Comment: ALL [...] THIS PURPOSE. Performed By: #### 5 6101, 70612 ####[facility] BNP EDon 11-20-2020 Natriuretic peptide B (Bld) [Mass/Vol] 111 pg/mL High 0-100 [facility] Comment on above: Result Comment: Give n the appropriate clinical setting a BNP result of >100 pg/mL indicates congestive heart failure. Performed By: #### 3 0935 #### [facility] [address] [place] [address], [facility] CBC W/DIFFon 11-20-2020 ABS IMM GRANS 0.0 10*3/uL Normal 0.0-0.2 [facility] Comment on above: Performed By: #### 5 0103 ####[facility] [place] [address], [facility] ABS NEUTROPHILS 3.9 10*3/uL Normal 1.6-7.6 [facility] Comment on above: Performed By: #### 5 0103 ####[facility] [place] [address], [facility] Basophils (Bld) [#/Vol] 0.1 10*3/uL Normal 0.0-0.2 [facility] Comment on above: Performed By: #### 5 0103 ####[facility] [facility] [place] [address], [facility] Basophils/100 WBC (Bld) 1.0 % Normal 0.0-1.0 [facility] Comment on above: Performed By: #### 5 0103 ####[facility] [place] [address], [facility] Eosinophils (Bld) [#/Vol] 0.3 10*3/uL Normal 0.0-0.5 [facility] Comment on above: Performed By: #### 5 0103 ####[facility] [facility] [place] [address], [facility] Eosinophils/100 WBC (Bld) 5.1 % Normal 0.0-6.0 [facility] Comment on above: Performed By: #### 5 0103 ####[facility] [facility] [place] [address], [facility] Erythrocyte distribution width (RBC) [Ratio] 13.1 % Normal 11.5-15.0 [facility] Comment on above: Performed By: #### 5 3 ####[facility] [facility] [place] [address], [facility] Hematocrit (Bld) [Volume fraction] 45.4 % Normal 39.0-50.0 [facility] Comment on above: Performed By: #### 5 0103 ####[facility] [facility].[address] Hemoglobin (Bld) [Mass/Vol] 14.8 g/dL Normal 13.0-17.0 [facility] Comment on above: Performed By: #### 5 0103 ####[facility] IMMATURE GRANS 0.3 % Normal 0.0-1.0 [facility] Comment on above: Performed By: #### 5 0103 ####[address] Lymphocytes (Bld) [#/Vol] 1.0 10*3/uL Low 1.2-4.0 [facility] Comment on above: Performed By: #### 5 0103 ####[facility] Lymphocytes/100 WBC (Bld) 17.5 % Low 20.0-45.0 [facility] Comment on above: Performed By: #### 5 0103 ####[address] MCH (RBC) [Entitic mass] 32.5 pg Normal 27.0-33.0 [facility] Comment on above: Performed By: #### 5 0103 ####[facility] MCHC (RBC) [Mass/Vol] 32.6 g/dL Normal 32.0-35.0 [facility] Comment on above: Performed By: #### 5 3 ####[facility] [place] [address] MCV (RBC) [Entitic vol] 99.6 fL High 82.0-98.0 [facility] Comment on above: Performed By: #### 102 ####[facility] [facility].[address] Monocytes (Bld) [#/Vol] 0.6 10*3/uL Normal 0.1-1.0 [facility] Comment on above: Performed By: #### 102 ####[facility] MONOS 9.4 % Normal 5.0-12.0 [facility] Comment on above: Performed By: #### 5 102 ####[facility] Neutrophils/100 WBC (Bld) 66.7 % Normal 40.0-72.0 [facility] Comment on above: Performed By: #### 102 ####[facility] Nucleated RBC/100 WBC (Bld) [Ratio] 0 % Normal 0-0 [facility] Comment on above: Performed By: #### 102 ####[facility] PLAT CNT 175 10*3/uL Normal 150-400 [facility] Comment on above: Performed By: #### 5 102 ####[facility] RBC (Bld) [#/Vol] 4.56 10*6/uL Normal 4.20-5.70 [facility] Comment on above: Performed By: #### 102 ####[facility] WBC (Bld) [#/Vol] 5.88 10*3/uL Normal 4.00-10.60 [facility] Comment on above: Performed By: #### 5 0103 ####[facility] [place] [address], [facility] COMP METABOLIC PANELon 11-20 Albumin [Mass/Vol] 4.0 g/dL Normal 3.5-5.7 [facility] Comment on above: Performed By: #### 0 0121, 66931, 44355, 54527 #### [facility] [address] [place] [address], [place] ALKALINE PHOSPH 130 IU/L High 34-104 [facility] Comment on above: Performed By: #### 0 0121, 17412, 41957, 56303 #### [facility] [address] [place] [address], [place] ALT [Catalytic activity/Vol] 18 U/L Normal 7-52 [facility] Comment on above: Performed By: #### 0 0121, 35054, 01608, 23821 #### [facility] [address] [place] [address], [place] AST [Catalytic activity/Vol] 19 U/L Normal 13-39 [facility] Comment on above: Performed By: #### 0 0121, 87380, 58989, 52881 #### [facility] [address] [place] [address], [place] Bilirubin [Mass/Vol] 0.4 mg/dL Normal 0.3-1.0 [facility] Comment on above: Performed By: #### 0 0121, 24000, 78127, 11282 #### [facility] [address] [place] [address], [place] Calcium [Mass/Vol] 9.0 mg/dL Normal 8.6-10.3 [facility] Comment on above: Performed By: #### 0 0121, 14737, 93143, 95761 #### [facility] [address] [place] [address], [place] Chloride [Moles/Vol] 103 mmol/L Normal 98-107 [facility] Comment on above: Performed By: #### 0 0121, 55670, 67395, 66615 #### [facility] [address] [place] [address], [place] CO2 [Moles/Vol] 28 mmol/L Normal 21-31 [facility] Comment on above: Performed By: #### 0 0121, 04692, 46191, 77759 #### [facility] [address] [place] [address], [place] Creatinine [Mass/Vol] 0.77 mg/dL Normal 0.70-1.30 [facility] Comment on above: Performed By: #### 0 0121, 50341, 19335, 50495 #### [facility] [address] [place] [address], [place] GFR/1.73 sq M.predicted among blacks MDRD (S/P/Bld) [Vol rate/Area] mL/min/{1.73_m2} Normal >60 [facility] Comment on above: Performed By: #### 0 0121, 18539, 54811, 38791 #### [facility] [address] [place] [address], [place] GFR/1.73 sq M.predicted among non-blacks MDRD (S/P/Bld) [Vol rate/Area] mL/min/{1.73_m2} Normal >60 [facility] Comment on above: Performed By: #### 0 0121, 29844, 91796, 90151 #### [facility] [address] [place] [address], [place] Glucose [Mass/Vol] 88 mg/dL Normal 70-100 [facility] Comment on above: Performed By: #### 0 0121, 01691, 89854, 29887 #### [facility] [address] [place] [address], [place] Potassium [Moles/Vol] 4.9 mmol/L Normal 3.5-5.1 [facility] Comment on above: Performed By: #### 0 0121, 02559, 27812, 31640 #### [facility] [address] [facility] [place] [address], [facility] Protein [Mass/Vol] 7.3 g/dL Normal 6.0-8.3 [facility] Comment on above: Performed By: #### 0 0121, 49822, 98874, 13790 #### [facility] [address] [facility] [place] [address], [facility] Sodium [Moles/Vol] 138 mmol/L Normal 136-145 [facility] Comment on above: Performed By: #### 0 0121, 02698, 15295, 94006 #### [facility] [address] [facility] [place] [address], [facility] Urea nitrogen [Mass/Vol] 15 mg/dL Normal 7-25 [facility] Comment on above: Performed By: #### 0 0121, 87672, 16734, 27133 #### [facility] [address] CTA HEADon 11-20-2020 CTA HEAD [facility] Department of Radiology [address] [place], [place] [id number] ======== Patient Name: NAZARIO CORTES : 1955 Sex: M Age: Race: White Pt. Location: [facility] Patient Status: E Ordered Date: 11/20/2020 [...] stenosis of the major vessels of the [place]. origin of bilateral posterior cerebral arteries. IMPRESSION: Normal CTA of the brain. All CT scans at this facility use dose modulation, iterative reconstruction, and/or weight based dosing when appropriate to reduce radiation dose to as low as reasonably achievable. Electronically signed: Dhaval Ghotra. Transcribed by: [email or web address], User Resident: Electronically Signed by: DHAVAL GHOTRA @ 11/20/2020 12:58 PM Normal [facility] Comment on above: Order Comment: Bleed CTA [facility] 11-20-2020 CTA [facility] Department of Radiology [address] [place] [id number] ======== Patient Name: NAZARIO CORTES : 1955 Sex: M Age: Race: White Pt. Location: [facility] Patient Status: E Ordered Date: 11/20/2020 [...] viewed on a separate workstation. The [place] Symptomatic Carotid Endarterectomy Trial (NASCET) method for [...] achievable Electronically signed: Dhaval Ghotra. Transcribed by: [email or web address], User Resident: Electronically Signed by: DHAVAL GHOTRA @ 11/20/2020 12:57 PM Normal [facility] DIRECT BILIon 11-20-2020 Bilirubin.direct [Mass/Vol] 0.1 mg/dL Normal 0.0-0.2 [facility] Comment on above: Order Comment: Liver Battery conflicts with Comprehensive Metabolic Panel. Liver Battery canceled and Direct Bilirubin added. Performed By: #### 0 0121, 03918, 80566, 30007 #### [facility] [address] [facility]. [address] LIPASE BLOODon 11-20-2020 LIPASE 27 Units/L Normal 11-82 [facility] Comment on above: Performed By: #### 0 0121, 27633, 43452, 37616 #### [facility] [address] [facility]. [address] POC SARS COV2 ANTIGEN NEGATI VEon 11-20-2020 POC SARS COV2 ANTIGEN N Negative Normal NEGATIVE [facility] Comment on above: Result Comment: Test performed on [employer] System for rapid detection of SARS-CoV-2. Negative [...] management. Performed By: #### 3 1919 #### [facility] [address] PORTABLE CHEST 1 VIEWon 10-23 PORTABLE CHEST 1 VIEW [facility] Department of Radiology [address] [place], [place] [id number] ======== Patient Name: NAZARIO CORTES : 1955 Sex: M Age: Race: White Pt. Location: [facility] Patient Status: E Ordered Date: 11/20/2020 [...] reports Electronically signed: Dhaval Ghotra. Transcribed by: [email or web address], User Resident: JESSENIA ALFORD Electronically Signed by: DHAVAL GHOTRA @ 11/20/2020 12:32 PM I personally read this/these film(s) with this resident Normal [facility] Comment on above: Order Comment: evalu ate for Pneumonia PROTHROMBIN TIMEon 0 INR Coag (PPP) [Relative time] 0.95 {INR} Normal 0.91-1.16 [facility] Comment on above: Result Comment: [facility] P RECOMMENDED INR FOR WARFARIN THERAPY -------- [...] CHEST 1995;108:231S-246S. Performed By: #### 5 6101, 65386 ####[facility] PT Coag (PPP) [Time] 12.7 s Normal 12.3-14.8 [facility] Comment on above: Result Comment: ALL RESULTS MUST BE INTERPRETED WITH RESPECT TO BLOOD DRAWING ARTIFACT OR DILUTION ERROR OF ANTICOAGULANT AT THE TIME OF SAMPLING. Performed By: #### 5 6101, 64873 ####[facility] [address] TROPONIN-Ion 11-20-2020 Troponin I.cardiac [Mass/Vol] 0.00 ng/mL Normal 0.00-0.04 [facility] Comment on above: Order Comment: No: D o not add to previous draw Result Comment: REFE RENCE RANGES: 0.00 - 0.14 ng/ml NEGATIVE 0.15 - 0.25 ng/ml INDETERMINATE > 0.25 ng/ml INDICATIVE OF AN M.I. Performed By: #### 3 5200 #### [facility] [address] [place] [address], [facility] Troponin I.cardiac [Mass/Vol] 0.00 ng/mL Normal 0.00-0.04 [facility] Comment on above: Result Comment: REFE RENCE RANGES: 0.00 - 0.14 ng/ml NEGATIVE 0.15 - 0.25 ng/ml INDETERMINATE > 0.25 ng/ml INDICATIVE OF AN M.I. Performed By: #### 0 0121, 04326, 64449, 40154 #### [facility] [address] Vital Signs Date Time Vital Sign Value Performing Clinician Facility 05-26-2025 11:53-0400 Body height 184.15 cm Jignesh Gonsalez MD Work Phone: [facility] 05-26-2025 11:53-0400 Body mass index (BMI) [Ratio] 42.1 kg/m2 Jignesh Gonsalez MD Work Phone: [facility] 05-26-2025 11:53-0400 Body temperature 98 [degF] Jignesh Gonsalez MD Work Phone: [facility] 05-26-2025 11:53-0400 Body weight 142.88 kg Jignesh Gonsalez MD Work Phone: [facility] 05-26-2025 11:53-0400 Diastolic blood pressure 71 mm[Hg] Jignesh Gonsalez MD Work Phone: [facility] 05-26-2025 11:53-0400 Heart rate 73 /min Jignesh Gonsalez MD Work Phone: [facility] 05-26-2025 11:53-0400 Inhaled oxygen flow rate 2 L/min Jignesh Gonsalez MD Work Phone: [facility] 05-26-2025 11:53-0400 Respiratory rate 20 /min Jignesh Gonsalez MD Work Phone: [facility] 05-26-2025 11:53-0400 SaO2% (BldA) [Mass fraction] 92 % Jignesh Gonsalez MD Work Phone: [facility] 05-26-2025 11:53-0400 Systolic blood pressure 121 mm[Hg] Jignesh Gonsalez MD Work Phone: [facility] 05-23-2025 13:45-0400 Body height 185.4 cm Jignesh Gonsalez MD Work Phone: [facility] 05-23-2025 13:45-0400 Body mass index (BMI) [Ratio] 42.09 kg/m2 Jignesh Gonsalez MD Work Phone: [facility] 05-23-2025 13:45-0400 Body temperature 97.81 [degF] Jignesh Gonsalez MD Work Phone: [facility] 05-23-2025 13:45-0400 Body weight 144.7 kg Jignesh Gonsalez MD Work Phone: [facility] 05-23-2025 13:45-0400 Diastolic blood pressure 70 mm[Hg] Jignesh Gonsalez MD Work Phone: [facility] 05-23-2025 13:45-0400 Heart rate 82 /min Jignesh Gonsalez MD Work Phone: [facility] 05-23-2025 13:45-0400 Respiratory rate 22 /min Jignesh Gonsalez MD Work Phone: [facility] 05-23-2025 13:45-0400 SaO2% (BldA) [Mass fraction] 93 % Jignesh Gonsalez MD Work Phone: [facility] 05-23-2025 13:45-0400 Systolic blood pressure 142 mm[Hg] Jignesh Gonsalez MD Work Phone: [facility] 05-12-2025 11:58-0400 Body height 184.15 cm Jignesh Gonsalez MD Work Phone: [facility] 05-12-2025 11:58-0400 Body mass index (BMI) [Ratio] 42.3 kg/m2 Jignesh Gonsalez MD Work Phone: [facility] 05-12-2025 11:58-0400 Body temperature 98 [degF] Jignesh Gonsalez MD Work Phone: [facility] 05-12-2025 11:58-0400 Body weight 143.44 kg Jignesh Gonsalez MD Work Phone: [facility] 05-12-2025 11:58-0400 Diastolic blood pressure 64 mm[Hg] Jignesh Gonsalez MD Work Phone: [facility] 05-12-2025 11:58-0400 Heart rate 90 /min Jignesh Gonsalez MD Work Phone: [facility] 05-12-2025 11:58-0400 Respiratory rate 19 /min Jignesh Gonsalez MD Work Phone: [facility] 05-12-2025 11:58-0400 SaO2% (BldA) [Mass fraction] 98 % Jignesh Gonsalez MD Work Phone: [facility] 05-12-2025 11:58-0400 Systolic blood pressure 112 mm[Hg] Jignesh Gonsalez MD Work Phone: [facility] 04-26-2025 11:56-0400 Body height 185.4 cm Jignesh Gonsalez MD Work Phone: [facility] 04-26-2025 11:56-0400 Body mass index (BMI) [Ratio] 41.43 kg/m2 Jignesh Gonsalez MD Work Phone: [facility] 04-26-2025 11:56-0400 Body temperature 97.3 [degF] Jignesh Gonsalez MD Work Phone: [facility] 04-26-2025 11:56-0400 Body weight 142.43 kg Jignesh Gonsalez MD Work Phone: [facility] 04-26-2025 11:56-0400 Diastolic blood pressure 66 mm[Hg] Jignesh Gonsalez MD Work Phone: [facility] 04-26-2025 11:56-0400 Heart rate 42 /min Jignesh Gonsalez MD Work Phone: [facility] 04-26-2025 11:56-0400 Respiratory rate 22 /min Jignesh Gonsalez MD Work Phone: [facility] 04-26-2025 11:56-0400 SaO2% (BldA) [Mass fraction] 91 % Jignesh Gonsalez MD Work Phone: [facility] 04-26-2025 11:56-0400 Systolic blood pressure 128 mm[Hg] Jignesh Gonsalez MD Work Phone: [facility] 04-02-2025 12:08-0400 Body height 185.4 cm Jignesh Gonsalez MD Work Phone: [facility] 04-02-2025 12:08-0400 Body mass index (BMI) [Ratio] 40.64 kg/m2 Jignesh Gonsalez MD Work Phone: [facility] 04-02-2025 12:08-0400 Body temperature 97.5 [degF] Jignesh Gonsalez MD Work Phone: [facility] 04-02-2025 12:08-0400 Body weight 139.71 kg Jignesh Gonsalez MD Work Phone: [facility] 04-02-2025 12:08-0400 Diastolic blood pressure 64 mm[Hg] Jignesh Gonsalez MD Work Phone: [facility] 04-02-2025 12:08-0400 Heart rate 66 /min Jignesh Gonsalez MD Work Phone: [facility] 04-02-2025 12:08-0400 Respiratory rate 22 /min Jignesh Gonsalez MD Work Phone: [facility] 04-02-2025 12:08-0400 SaO2% (BldA) [Mass fraction] 96 % Jignesh Gonsalez MD Work Phone: [facility] 04-02-2025 12:08-0400 Systolic blood pressure 128 mm[Hg] Jignesh Gonsalez MD Work Phone: [facility] 02-20-2025 13:33-0400 Body height 185.4 cm Jignesh Gonsalez MD Work Phone: [facility] 02-20-2025 13:33-0400 Body mass index (BMI) [Ratio] 40.77 kg/m2 Jignesh Gonsalez MD Work Phone: [facility] 02-20-2025 13:33-0400 Body temperature 96.6 [degF] Jignesh Gonsalez MD Work Phone: [facility] 02-20-2025 13:33-0400 Body weight 140.16 kg Jignesh Gonsalez MD Work Phone: [facility] 02-20-2025 13:33-0400 Diastolic blood pressure 76 mm[Hg] Jignesh Gonsalez MD Work Phone: [facility] 02-20-2025 13:33-0400 Heart rate 85 /min Jignesh Gonsalez MD Work Phone: [facility] 02-20-2025 13:33-0400 Respiratory rate 22 /min Jignesh Gonsalez MD Work Phone: [facility] 02-20-2025 13:33-0400 SaO2% (BldA) [Mass fraction] 92 % Jignesh Gonsalez MD Work Phone: [facility] 02-20-2025 13:33-0400 Systolic blood pressure 154 mm[Hg] Jignesh Gonsalez MD Work Phone: [facility] 01-21-2025 13:40-0500 Body height 185.4 cm Jignesh Gonsalez MD Work Phone: [facility] 01-21-2025 13:40-0500 Body mass index (BMI) [Ratio] 41.03 kg/m2 Jignesh Gonsalez MD Work Phone: [facility] 01-21-2025 13:40-0500 Body temperature 97.5 [degF] Jignesh Gonsalez MD Work Phone: [facility] 01-21-2025 13:40-0500 Body weight 141.07 kg Jignesh Gonsalez MD Work Phone: [facility] 01-21-2025 13:40-0500 Diastolic blood pressure 64 mm[Hg] Jignesh Gonsalez MD Work Phone: [facility] 01-21-2025 13:40-0500 Heart rate 87 /min Jignesh Gonsalez MD Work Phone: [facility] 01-21-2025 13:40-0500 Respiratory rate 20 /min Jignesh Gonsalez MD Work Phone: [facility] 01-21-2025 13:40-0500 SaO2% (BldA) [Mass fraction] 91 % Jignesh Gonsalez MD Work Phone: [facility] 01-21-2025 13:40-0500 Systolic blood pressure 130 mm[Hg] Jignesh Gonsalez MD Work Phone: [facility] 12-19-2024 13:35-0500 Body height 185.4 cm Amrik Pérez MD Work Phone: [facility] 12-19-2024 13:35-0500 Body mass index (BMI) [Ratio] 40.37 kg/m2 Amrik Pérez MD Work Phone: [facility] 12-19-2024 13:35-0500 Body weight 138.8 kg Amrik Pérez MD Work Phone: [facility] 12-19-2024 13:35-0500 Diastolic blood pressure 64 mm[Hg] Amrik Pérez MD Work Phone: [facility] 12-19-2024 13:35-0500 Heart rate 80 /min Amrik Pérez MD Work Phone: [facility] 12-19-2024 13:35-0500 Systolic blood pressure 112 mm[Hg] Amrik Pérez MD Work Phone: [facility] 11-22-2024 15:42-0500 Body height 185.4 cm Jignesh Gonsalez MD Work Phone: [facility] 11-22-2024 15:42-0500 Body mass index (BMI) [Ratio] 41.16 kg/m2 Jignesh Gonsalez MD Work Phone: [facility] 11-22-2024 15:42-0500 Body temperature 97.5 [degF] Jignesh Gonsalez MD Work Phone: [facility] 11-22-2024 15:42-0500 Body weight 141.52 kg Jignesh Gonsalez MD Work Phone: [facility] 11-22-2024 15:42-0500 Diastolic blood pressure 66 mm[Hg] Jignesh Gonsalez MD Work Phone: [facility] 11-22-2024 15:42-0500 Heart rate 33 /min Jignesh Gonsalez MD Work Phone: [facility] 11-22-2024 15:42-0500 Respiratory rate 20 /min Jignesh Gonsalez MD Work Phone: [facility] 11-22-2024 15:42-0500 SaO2% (BldA) [Mass fraction] 89 % Jignesh Gonsalez MD Work Phone: [facility] 11-22-2024 15:42-0500 Systolic blood pressure 148 mm[Hg] Jignesh Gonsalez MD Work Phone: [facility] 10-25-2024 15:32-0500 Body height 185.4 cm Jignesh Gonsalez MD Work Phone: [facility] 10-25-2024 15:32-0500 Body mass index (BMI) [Ratio] 40.9 kg/m2 Jignesh Gonsalez MD Work Phone: [facility] 10-25-2024 15:32-0500 Body temperature 97.5 [degF] Jignesh Gonsalez MD Work Phone: [facility] 10-25-2024 15:32-0500 Body weight 140.62 kg Jignesh Gonsalez MD Work Phone: [facility] 10-25-2024 15:32-0500 Diastolic blood pressure 70 mm[Hg] Jignesh Gonsalez MD Work Phone: [facility] 10-25-2024 15:32-0500 Heart rate 87 /min Jignesh Gonsalez MD Work Phone: [facility] 10-25-2024 15:32-0500 Respiratory rate 22 /min Jignesh Gonsalez MD Work Phone: [facility] 10-25-2024 15:32-0500 SaO2% (BldA) [Mass fraction] 90 % Jignesh Gonsalez MD Work Phone: [facility] 10-25-2024 15:32-0500 Systolic blood pressure 150 mm[Hg] Jignesh Gonsalez MD Work Phone: [facility] 09-07-2024 14:54-0400 Body height 185.42 cm MD Jignesh Gonsalez Work Phone: [facility] 09-07-2024 14:54-0400 Body mass index (BMI) [Ratio] 39.2 kg/m2 MD Jignesh Gonsalez Work Phone: [facility] 09-07-2024 14:54-0400 Body temperature 96.8 [degF] MD Jignesh Gonsalez Work Phone: [facility] 09-07-2024 14:54-0400 Body weight 134.94 kg MD Jignesh Gonsalez Work Phone: [facility] 09-07-2024 14:54-0400 Diastolic blood pressure 78 mm[Hg] MD Jignesh Gonsalez Work Phone: [facility] 09-07-2024 14:54-0400 Heart rate 93 /min MD Jignesh Gonsalez Work Phone: [facility] 09-07-2024 14:54-0400 Respiratory rate 20 /min MD Jignesh Gonsalez Work Phone: [facility] 09-07-2024 14:54-0400 SaO2% (BldA) [Mass fraction] 94 % MD Jignesh Gonsalez Work Phone: [facility] 09-07-2024 14:54-0400 Systolic blood pressure 119 mm[Hg] MD Jignesh Gonsalez Work Phone: [facility] 08-16-2024 10:34-0400 Body height 185.42 cm [facility] 08-16-2024 10:34-0400 Body mass index (BMI) [Ratio] 39 kg/m2 [facility] 08-16-2024 10:34-0400 Body temperature 96.8 [degF] [facility] 08-16-2024 10:34-0400 Body weight 134.26 kg [facility] 08-16-2024 10:34-0400 Diastolic blood pressure 77 mm[Hg] [facility] 08-16-2024 10:34-0400 Heart rate 73 /min [facility] 08-16-2024 10:34-0400 Respiratory rate 18 /min [facility] 08-16-2024 10:34-0400 SaO2% (BldA) [Mass fraction] 96 % [facility] 08-16-2024 10:34-0400 Systolic blood pressure 125 mm[Hg] [facility] 08-09-2024 13:10-0400 Body height 185.42 cm MD Jignesh Gonsalez Work Phone: [facility] 08-09-2024 13:10-0400 Body mass index (BMI) [Ratio] 39 kg/m2 MD Jignesh Gonsalez Work Phone: [facility] 08-09-2024 13:10-0400 Body temperature 98.5 [degF] MD Jignesh Gonsalez Work Phone: [facility] 08-09-2024 13:10-0400 Body weight 134.26 kg MD Jignesh Gonsalez Work Phone: [facility] 08-09-2024 13:10-0400 Diastolic blood pressure 64 mm[Hg] MD Jignesh Gonsalez Work Phone: [facility] 08-09-2024 13:10-0400 Heart rate 75 /min MD Jignesh Gonsalez Work Phone: [facility] 08-09-2024 13:10-0400 Respiratory rate 18 /min MD Jignesh Gonsalez Work Phone: [facility] 08-09-2024 13:10-0400 SaO2% (BldA) [Mass fraction] 93 % MD Jignesh Gonsalez Work Phone: [facility] 08-09-2024 13:10-0400 Systolic blood pressure 98 mm[Hg] MD Jignesh Gonsalez Work Phone: [facility] 05-15-2024 15:36-0400 Body height 185.42 cm MD Jignesh Gonsalez Work Phone: [facility] 05-15-2024 15:36-0400 Body mass index (BMI) [Ratio] 36.9 kg/m2 MD Jignesh Gonsalez Work Phone: [facility] 05-15-2024 15:36-0400 Body temperature 97.5 [degF] MD Jignesh Gonsalez Work Phone: [facility] 05-15-2024 15:36-0400 Body weight 127 kg MD Jignesh Gonsalez Work Phone: [facility] 05-15-2024 15:36-0400 Diastolic blood pressure 74 mm[Hg] MD Jingesh Gonsalez Work Phone: [facility] 05-15-2024 15:36-0400 Heart rate 81 /min MD Jignesh Gonsalez Work Phone: [facility] 05-15-2024 15:36-0400 Respiratory rate 18 /min MD Jignesh Gonsalez Work Phone: [facility] 05-15-2024 15:36-0400 SaO2% (BldA) [Mass fraction] 93 % MD Jignesh Gonsalez Work Phone: [facility] 05-15-2024 15:36-0400 Systolic blood pressure 119 mm[Hg] MD Jignesh Gonsalez Work Phone: [facility] 04-23-2024 13:06-0400 Body height 185.42 cm [facility] 04-23-2024 13:06-0400 Body mass index (BMI) [Ratio] 36.9 kg/m2 [facility] 04-23-2024 13:06-0400 Body temperature 97.3 [degF] [facility] 04-23-2024 13:06-0400 Body weight 127 kg [facility] 04-23-2024 13:06-0400 Diastolic blood pressure 56 mm[Hg] [facility] 04-23-2024 13:06-0400 Heart rate 80 /min [facility] 04-23-2024 13:06-0400 Respiratory rate 18 /min [facility] 04-23-2024 13:06-0400 SaO2% (BldA) [Mass fraction] 97 % [facility] 04-23-2024 13:06-0400 Systolic blood pressure 106 mm[Hg] [facility] 07-05-2023 10:00-0400 Body height 185.42 cm Luiz Riggs Other [facility] [employer] Other 07-05-2023 10:00-0400 Body mass index (BMI) [Ratio] 37.86 kg/m2 Luiz Riggs Other [facility] Other 07-05-2023 10:00-0400 Body weight 130.18 kg Luiz Riggs Other [facility] Other 07-05-2023 10:00-0400 Diastolic blood pressure 76 mm[Hg] Luiz Riggs Other [facility] Other 07-05-2023 10:00-0400 Systolic blood pressure 126 mm[Hg] Luiz Riggs Other [facility] Other 04-06-2022 17:40-0400 Body height 185.42 cm Neelam Blackburnmond Other [facility] Other 04-06-2022 17:40-0400 Body mass index (BMI) [Ratio] 36.15 kg/m2 Neelam Alexandra Other [facility] Other 04-06-2022 17:40-0400 Body temperature 98 [degF] Neelam Alexandra Other [facility] Other 04-06-2022 17:40-0400 Body weight 124.29 kg Neelam Alexandra Other [facility] Other 04-06-2022 17:40-0400 Diastolic blood pressure 69 mm[Hg] Neelam Alexandra Other [facility] Other 04-06-2022 17:40-0400 Respiratory rate 18 /min Neelam Alexandra Other [facility] Other 04-06-2022 17:40-0400 SaO2% (BldA) [Mass fraction] 95 % Neelam Alexandra Other [facility] Other 04-06-2022 17:40-0400 Systolic blood pressure 123 mm[Hg] Neelam Alexandra Other [facility] Other 12-28-2021 17:00-0500 Body height 185.42 cm Alex Bonilla Other [facility] Other 12-28-2021 17:00-0500 Body mass index (BMI) [Ratio] 37.47 kg/m2 Alex Bonilla Other [facility] Other 12-28-2021 17:00-0500 Body weight 128.82 kg Alex Bonilla Other [facility] [employer] Other Encounters Encounter Date Encounter Type Care Provider Facility Start: 05-26-2025 End: 05-26-2025 ambulatory Jignesh Gonsalez MD Work Phone: [facility] Work Phone: Start: 05-26-2025 End: 05-26-2025 Patient encounter procedure Kaykay AponteDarlinLevon [employer] [facility] Work Phone: Start: 05-23-2025 End: 05-23-2025 Bamboo flowsheet Jignesh Gonsalez MD Work Phone: [facility] Start: 05-23-2025 End: 05-23-2025 Bamboo Neo PLMheet Jignesh Gonsalez MD Work Phone: [facility] [...] Start: 05-15-2025 End: 05-15-2025 ambulatory JIGNESH GONSALEZ [facility] Start: 05-13-2025 End: 05-14-2025 Refill Jignesh Gonsalez MD Work Phone: [facility] Comment on above: Dizziness; Dyslipidemia Start: 05-12-2025 End: 05-12-2025 Patient encounter procedure Sandy Sarabia [employer] Work Phone: Start: 04-26-2025 End: 04-26-2025 Office outpatient visit 25 minutes Jignesh Gonsalez MD Work Phone: [facility] Comment on above: Chronic obstructive pulmonary disease, unspecified COPD type (CMS/HCC) (Primary Dx); Chronic hypoxic respiratory failure (CMS/HCC); Dysphagia, unspecified type Start: 04-26-2025 End: 04-26-2025 ambulatory JIGNESH GONSALEZ Not Available Start: 04-25-2025 End: 04-25-2025 Bamboo flowsheet Chari Means [place] [facility] Work Phone: [facility] Start: 04-25-2025 End: 04-25-2025 Bamboo flowsheet Chari Clary [place] [facility] Work Phone: [facility] Start: 04-25-2025 End: 04-25-2025 Clinical Support Chari Clary [place] [facility] Work Phone: [facility] Comment on [...] stenosis Start: 01-22-2025 End: 01-22-2025 ambulatory [facility] Start: 01-21-2025 End: 01-21-2025 Bamboo flowsheet Jignesh Gonsalez MD Work Phone: [facility] Start: 01-21-2025 End: 01-21-2025 Bamboo flowsheet Jignesh Gonsalez MD Work Phone: [facility] Start: 01-21-2025 End: 01-21-2025 Office outpatient visit 15 minutes Jignesh Gonsalez MD Work Phone: [facility] Comment on above: 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 (CMS/HCC) (Primary Dx); SOB (shortness of breath) on exertion Start: 01-21-2025 End: 01-21-2025 ambulatory JIGNESH GONSALEZ Not Available Start: 01-12-2025 Evaluation and manag ement of inpatient [facility] Start: 01-11-2025 Evaluation and manag ement of inpatient [facility] Start: 01-11-2025 Evaluation and manag ement of inpatient [facility] Start: 01-11-2025 End: 01-13-2025 Evaluation and management of inpatient [facility] Start: 12-19-2024 End: 12-19-2024 Bamboo flowsheet Amrik [...] 11-28-2024 Refill Jignesh Gonsalez MD Work Phone: [facility] Comment on above: Seizure disorder (CM S/HCC) Start: 11-27-2024 End: 11-28-2024 Orders Only Jignesh Gonsalez MD Work Phone: [facility] Comment on above: Deviated nasal septu m (Primary Dx); Chronic rhinosinusitis Start: 11-27-2024 End: 11-27-2024 Patient encounter procedure Jose M Celestine HUDSON Work Phone: [facility] Comment on above: Screening for malign ant neoplasm of colon (Primary Dx) Start: 11-22-2024 End: 11-22-2024 Postop follow up visit related to original px Jignesh Gonsalez MD Work Phone: [facility] Comment on above: Medicare annual [...] flowsheet Jignesh Gonsalez MD Work Phone: [facility] Start: 11-22-2024 End: 11-22-2024 Bamboo flowsheet Jignesh Gonsalez MD Work Phone: [facility] Start: 11-22-2024 End: 11-22-2024 Patient [...] 10-30-2024 End: 10-30-2024 Bamboo flowsheet Chari Means [place] [facility] Work Phone: [facility] Start: 10-30-2024 End: 10-30-2024 Bamboo flowsheet Chari Clary [place] [facility] Work Phone: [facility] Start: 10-25-2024 End: 10-25-2024 [...] Start: 10-17-2024 End: 10-17-2024 ambulatory Yancy Lawson Facility:[facility] Start: 10-11-2024 End: 10-11-2024 Refill Jignesh Gonsalez MD Work Phone: [facility] Comment on above: Degenerative lumbar spinal stenosis Start: 09-25-2024 End: 09-25-2024 Refill Jignesh Gonsalez MD Work Phone: [facility] Comment on above: Seizure disorder (CM S/HCC) Start: 09-07-2024 End: 09-07-2024 ambulatory MD Jignesh Gonsalez Work Phone: [facility] Work Phone: Start: 09-07-2024 End: 09-07-2024 Patient encounter procedure MD Jignesh Gonsalez Work Phone: [facility] Work Phone: Start: 08-16-2024 End: 08-16-2024 ambulatory [facility] Work Phone: Start: 08-16-2024 End: 08-16-2024 Patient encounter procedure [facility] Work Phone: Start: 08-09-2024 End: 08-09-2024 ambulatory MD Jignesh Gonsalez Work Phone: [facility] Work Phone: Start: 08-09-2024 End: 08-09-2024 Patient encounter procedure MD Jignesh Gonsalez Work Phone: [facility] Work Phone: Start: 08-08-2024 ambulatory [facility] Start: 07-26-2024 End: 07-26-2024 ambulatory [facility] Start: 07-18-2024 End: 07-18-2024 Refill Jignesh Gonsalez MD Work Phone: [facility] Comment on above: Seizure disorder (CM S/HCC) Start: 06-13-2024 End: 06-13-2024 ambulatory IMELDA THOMPSON Not Available Start: 05-15-2024 End: 05-15-2024 ambulatory MD Jignesh Gonsalez Work Phone: [facility] Work Phone: Start: 05-15-2024 End: 05-15-2024 Patient encounter procedure MD Jignesh Gonsalez Work Phone: [facility] Work Phone: Start: 04-23-2024 End: 04-23-2024 ambulatory [facility] Work Phone: Start: 04-23-2024 End: 04-23-2024 Patient encounter procedure [facility] Work Phone: Start: 12-30-2023 ambulatory Chris CAMARILLO Facili ty:[facility] [place] Start: 12-21-2023 Telephone encounter Epifanio dennison MD Work Phone: [facility] Start: 12-20-2023 ambulatory [facility] Start: 07-18-2023 End: 07-19-2023 ambulatory JIGNESH GONSALEZ Facility:[facility] [place] Start: 07-18-2023 End: 07-18-2023 Patient encounter procedure Chris CAMARILLO [facility] Start: 07-05-2023 Office outpatient ne w 30 minutes Luiz Riggs [facility] Start: 07-05-2023 End: 07-05-2023 ambulatory MD Jignesh Gonsalez Work Phone: [facility] Work Phone: Start: 07-05-2023 End: 07-05-2023 Patient encounter procedure MD Jignesh Gonsalez Work Phone: [facility] Work Phone: Start: 01-07-2023 End: 01-08-2023 [...] 04-06-2022 End: 04-06-2022 ambulatory Neelam Morris Other [facility] Other Start: 04-06-2022 Office outpatient vi sit 15 minutes Neelam Morris [facility] Start: 12-28-2021 End: 12-28-2021 ambulatory Alex Bonilla Other [facility] Other Start: 12-28-2021 Office outpatient ne w 30 minutes Alex Bonilla [facility] Neurosurgery Start: 11-20-2020 End: 11-20-2020 Emergency department patient visit KARINA JAY Facility:[facility] Procedures Date Procedure Procedure Detail Performing Clinician [...] Comment on above: Performed By: #### P [facility] #### [facility] [address] [place] [address] Dr. Jeimy Tenorio Extraction of cataract Patri [...] FM [address] [place] [address] Jignesh Gonsalez MD [address] [place] [address] [facility] Start: 07-22-2025 Influenza vaccination Influenza Vacc ine (#1) [facility] Healthcare Start: 05-23-2025 End: 05-23-2025 Patient encounter procedure [facility] Comment on above: Arrived Start: 04-26-2025 End: 04-26-2026 RF Upper gastrointestinal tract and Small bowel Single view W contrast PO FL upper GI double contrast w KUB Imaging Routine Dysphagia, unspecified type Expected: 04/26/2025, Expires: 04/26/2026 [facility] Healthcare Work Phone: Comment on above: Expected: 04/26/2025 , Expires: 04/26/2026 Start: 04-26-2025 End: 04-26-2025 Patient encounter procedure 04/26/2025 11:45 AM EDT Office Visit [facility] [address] [place] [address] Jignesh Gonsalez MD [address] [place] [phone] [facility] Start: 04-02-2025 End: 04-02-2025 Patient encounter procedure [facility] Comment on above: Arrived Start: 02-20-2025 End: 02-20-2025 Patient encounter procedure [facility] Comment on above: Arrived Start: 01-21-2025 End: 01-21-2025 Patient encounter procedure 01/21/2025 1:45 PM EST Office Visit [facility] [address] [place] [address] Jignesh Gonsalez MD [address] [place] [phone] Arrived [facility] Comment on above: Arrived Start: 12-19-2024 End: 12-19-2024 Patient encounter procedure 12/19/2024 1:40 PM EST Office Visit [facility] [address] [place] [id number] Amrik Pérez MD [address] [place] [id number] Deviated nasal septum; Chronic rhinosinusitis [facility] Comment on above: Deviated nasal septu m; Chronic rhinosinusitis Start: 11-26-2024 End: 11-26-2024 Patient encounter procedure 11/26/2024 2:00 PM EST Office Visit [facility] [address] [place] [address] Jose M Rea DO [address] [place] [address] [facility] Start: 11-22-2024 End: 11-22-2024 Patient encounter procedure [facility] Comment on above: Arrived Start: 11-22-2024 End: 11-22-2025 Basic metabolic 1998 panel - Serum or Plasma Basic metabolic panel Lab Routine Encounter for long-term current use of medication Expected: 11/22/2024 (Approximate), Expires: 11/22/2025 [facility] Work Phone: Comment on above: Expected: 11/22/2024 (Approximate), Expires: 11/22/2025 Start: 11-22-2024 End: 11-22-2025 CBC W Auto Differential panel - Blood CBC and differential Lab Routine Encounter for long-term current use of medication Expected: 11/22/2024 (Approximate), Expires: 11/22/2025 [facility] Comment on above: Expected: 11/22/2024 (Approximate), Expires: 11/22/2025 Start: 11-22-2024 End: 11-22-2025 Hepatic function 2000 panel - Serum or Plasma Hepatic function panel Lab Routine Encounter for long-term current use of medication Expected: 11/22/2024 (Approximate), Expires: 11/22/2025 [facility] Comment on above: Expected: 11/22/2024 (Approximate), Expires: 11/22/2025 Start: 11-22-2024 End: 11-22-2025 Lipid 1996 panel - Serum or Plasma Lipid panel Lab Routine Dyslipidemia ([facility]) Expected: 11/22/2024 (Approximate), Expires: 11/22/2025 [facility] Comment on above: Expected: 11/22/2024 (Approximate), Expires: 11/22/2025 Start: 11-22-2024 End: 11-22-2025 Prostate specific Ag [Mass/volume] in Serum or Plasma PSA Lab Routine Screening PSA (prostate specific antigen) Expected: 11/22/2024 (Approximate), Expires: 11/22/2025 [facility] Comment on above: Expected: 11/22/2024 (Approximate), Expires: 11/22/2025 Start: 11-22-2024 End: 11-22-2025 Thyrotropin [Units/volume] in Serum or Plasma TSH Lab Routine Class 3 severe obesity due to excess calories with serious comorbidity and body mass index (BMI) of 40.0 to 44.9 in adult ([facility]) Expected: 11/22/2024 (Approximate), Expires: 11/22/2025 [facility] Comment on above: Expected: 11/22/2024 (Approximate), Expires: 11/22/2025 Start: 10-25-2024 End: 10-25-2024 Patient encounter procedure [facility] Comment on above: Arrived Start: 10-25-2024 End: 10-25-2025 CT Maxillofacial region WO and W contrast IV CT SINUS WO IV CONTRAST Imaging Routine Chronic rhinosinusitis Expected: 10/25/2024, Expires: 10/25/2025 [facility] Work Phone: Comment on above: Expected: 10/25/2024 , Expires: 10/25/2025 Start: 09-27-2024 End: 09-27-2024 Patient encounter procedure 09/27/2024 3:30 PM EST Office [facility] [address] [place] [phone] Jignesh Gonsalez MD [address] [place] [phone] [facility] Start: 07-22-2024 Influenza vaccination Influenza Vacc ine (#1) [facility] Start: 12-30-2023 COVID-19 Vaccine ( season) COVID-19 Vaccine ( season) [facility] Start: 08-16-2023 Adult BMI Screening Adult BMI Screen ing [facility] Start: 08-16-2023 Fall Risk Screening Fall Risk Screen ing [facility] Start: 08-16-2023 Tobacco Screening Tobacco Screening [facility] Start: 08-05-2021 Pneumococcal Vaccine : 65+ Years (2 of 2 - PCV) Pneumococcal Vaccine: 65+ Years (2 of 2 - PCV) [facility] Start: 1974 Administration of varicella zoster vaccine Zoster (Shingles) Vaccine (1 of 2) [facility] Start: 1974 DTaP,Tdap and Td Vac cines (1 - Tdap) DTaP,Tdap and Td Vaccines (1 - Tdap) [facility] Start: 1967 Depression Screening Depression Scre ening [facility] Start: 1955 Medicare Annual Well ness (AWV) Medicare Annual Wellness (AWV) [facility] Start: 1955 Medicare Annual Well ness Visit Medicare Annual Wellness Visit [facility] Start: 1955 Screening for malign ant neoplasm of colon [facility] LOWER RESPIRATORY CULTURE LOWER RESPIRATORY CULTURE Lab Routine 03/08/2025 8:00 AM EDT [facility] MR Knee - right WO contrast MR knee right wo IV contrast Imaging Routine Chronic pain of right knee Internal derangement of right knee Ordered: 10/25/2024 [facility] Comment on above: Ordered: 10/25/2024 Pulmonary function report Pulmon marjorie Function Test Imaging Routine SOB (shortness of breath) on exertion Ordered: 01/21/2025 [facility] Work Phone: Comment on above: Ordered: 01/21/2025 XR Knee - right 4 Views [facility] Immunizations Immunization Date Immunization Notes Care Provider Fa cility 10-11-2024 influenza virus vacc ine, unspecified formulation Jignesh Gonsalez MD Work Phone: [facility] 11-04-2023 Covid-19, Mrna, Lnp- s, Bivalent, Pf, 30mcg/0.3 ml Epifanio Kaufman MD Work Phone: [facility] 11-04-2023 Influenza, Seasonal, Quadrivalent, Adjuvanted Jignesh Gonsalez MD Work Phone: [facility] 11-04-2023 influenza virus vacc ine, unspecified formulation Jignesh Gonsalez MD Work Phone: [facility] 08-21-2022 influenza virus vacc ine, unspecified formulation Epifanio Kaufman MD Work Phone: [facility] 08-21-2022 Influenza, High-dose Seasonal, Quadrivalent, Preservative Free Jignesh Gonsalez MD Work Phone: [facility] 08-21-2022 SARS-COV-2 (COVID-19 ) Vaccine, Unspecified Epifanio Kaufman MD Work Phone: [facility] 08-06-2021 Influenza Vaccine, Quadrivalent, Adjuvanted Jignesh Gonsalez MD Work Phone: [facility] 02-25-2021 COVID-19, mRNA, LNP- S, PF, 100mcg/0.5mL Dose Jignesh Gonsalez MD Work Phone: [facility] 02-12-2021 COVID-19, mRNA, LNP- S, PF, 30mcg/0.3mL Dose Epifanio Kaufman MD Work Phone: [facility] 08-05-2020 influenza, injectabl e, quadrivalent, preservative free Jignesh Gonsalez MD Work Phone: [facility] 08-05-2020 pneumococcal polysaccharide vaccine, 23 valent Jignesh Gonsalez MD Work Phone: [facility] 09-03-2019 influenza, seasonal, injectable Jignesh Gonsalez MD Work Phone: [facility] 08-24-2019 influenza, injectabl e, quadrivalent, preservative free Jignesh Gonsalez MD Work Phone: [facility] Healthcare Payers Date Payer Category Payer Self-pay [id number] 2023 Medicaid [id number] 2023 Medicaid [id number] 2022 Medicare [id number] 2021 Medicare [id number] 2021 Unknown [id number] 2021 Medicare [id number] 2020 Medicare [id number] 2019 Unknown [id number] 1959 Medicare [id number] 2. 16.840.1.102734.19 1955 Unknown [id number] 2.16.8 40.1.996928.3.579.2.647 1955 Unknown [id number] 2.16.84 0.1.849566.3.579.2.593 1955 Unknown [id number] 2.16.84 0.1.236428.3.579.2.593 1955 Unknown [id number] 2.16.84 0.1.771226.3.579.2.593 1955 Unknown [id number] 2.16.84 0.1.177292.3.579.2.593 1955 Unknown [id number] 2.16.84 0.1.509889.3.579.2.593 1955 Unknown [id number] 2.16.84 0.1.557351.3.579.2.593 1955 Unknown [id number] 2.16.84 0.1.546145.3.579.2.593 Unknown [id number] 2.16.8 40.1.494557.3.579.2.1286 1955 Unknown [id number] 2.16.8 40.1.855635.3.579.2.727 1955 Unknown [id number] 2.16.8 40.1.560402.3.579.2.727 1955 Unknown [id number] 2.16. 840.1.338860.3.579.2.1286 1955 Unknown [id number] 2.16.8 40.1.739539.3.579.2.1259 1955 Unknown [id number] 2.16.8 40.1.014525.3.579.2.1259 1955 Unknown [id number] 2.16.8 40.1.042890.3.579.2.1259 1955 Unknown [id number] 2.16.84 0.1.278929.3.579.2.1259 1955 Unknown [id number] 2.16.84 0.1.880904.3.579.2.1259 1955 Unknown [id number] 2.16.84 0.1.953499.3.579.2.1259 1955 Unknown [id number] 2.16.84 0.1.853824.3.579.2.1259 1955 Unknown [id number] 2.16.84 0.1.900116.3.579.2.1259 1955 Unknown [id number] 2.16.84 0.1.586660.3.579.2.1259 1955 Unknown [id number] 2.16.84 0.1.054353.3.579.2.1259 1955 Unknown [id number] 2.16.84 0.1.378524.3.579.2.1259 1955 Unknown [id number] 2.16.84 0.1.551922.3.579.2.1259 1955 Unknown [id number] 2.16.84 0.1.983918.3.579.2.1259 1955 Unknown [id number] 2.16.84 0.1.982511.3.579.2.1259 Medicare [id number] Unknown [id number] 2.16.8 40.1.879042.3.579.2.531 Unknown [id number] 2.16.8 40.1.214013.3.579.2.531 Unknown [id number] 2.16.8 40.1.637015.3.579.2.531 Social History Date Type Detail Facility Start: 12-14-2023 End: 01-15-2025 Sex Assigned At [facility] Start: 1955 Sex Assigned At Male [facility] Tobacco smoking status No Smoking Status Entered [facility] [employer] Start: 04-23-2024 End: 05-26-2025 Tobacco smoking status [facility] Never smoked tobacco (finding) [facility] Start: 01-11-2024 End: 12-19-2024 Tobacco smoking status [facility] Ex-smoker [facility] Healthcare Start: 11-21-1971 End: 04-18-1997 History of tobacco use Current smoker [facility] Healthcare Start: 11-21-1971 End: 04-18-1997 History [...] Healthcare Start: 08-16-2022 Alcohol intake Ex-drinker (finding) [facility] Sex Male (finding) [facility] NEGATED: Highlighted rowStart: NINF History [...] PRN. COPD (chronic obstructive pulmonary disease) ([facility]) Symptoms stable and use inhalers daily. Follow with pulmonology. Relevant Medications Fluticasone-Salmeterol (Advair Diskus) 500-50 MCG/ACT aerosol powder Benign essential hypertension - Primary BP controlled and monitor PRN. Chronic hypoxic respiratory failure (HCC) Script signed for portable concentrator. Hiatal hernia with GERD without esophagitis UGI with reflux and start omeprazole. Relevant Medications omeprazole (PriLOSEC) [address] capsule documented in this encounter [facility] 05-12-2025 Evaluation note Diagnosis Onset Date Resolution Cerumen impaction acute May 122024 11:50am Left otitis externa noneactive May 26, 2025 11:51am [facility] Work Phone: 1(767) 821-918506-06-2025 History of Present illness Narrative* Jignesh Gonsalez [...] 70 y.o. male who presents for Follow-up ([facility] er f/up copd). ER follow up [...] double contrast w KUB documented in this encounterSaint [facility] [id number] History of Present illness Narrative* MASHA Ferrari - 04/25/2025 9:00 AM EDT Pt picked up supplies documented in this encounterSaint John's Saint [facility] [id number] History of Present illness Narrative* Jignesh Gonsalez MD - 04/02/2025 3:15 PM EDT Images from the original note were not included. Subjective Patient ID: Nathan Cortes is a 70 y.o. male who presents for Follow-up ([facility] hospital f/u). Hospital follow up from [...] This Visit COPD (chronic obstructive pulmonary disease) ([facility]/HCC) - Primary Symptoms improved after treatment and [...] Wean oxygen as tolerated. documented in this [facility]05-08-2025 Telephone encounter Note* Telephone Encounter - Jignesh Gonsalez MD - 03/28/2025 3:25 PM EDT Sent [facility] [id number] Miscellaneous Notes* Telephone Encounter - Jignesh Gonsalez MD - 03/28/2025 3:25 PM EDT Sent * Telephone Encounter - DARCY THOMPSON - 03/28/2025 2:42 PM EDT Insurance called states that they will not cover spirva, but they will cover incruse ellipta. clm documented in this [facility]05-08-2025 Telephone encounter Note* Telephone Encounter - DARCY THOMPSON - 03/28/2025 2:42 PM EDT Insurance called states that they will not cover spirva, but they will cover incruse ellipta. clm [facility] [id number] Note Gram Stain Evaluation This specimen is of good quality and is acceptable for routine [facility] HospitalDxqnwqrcfz39-09-0537 NoteGRAM STAIN EVALUATIONbacterial culture.TBHNHermann Area District HospitalDvtqpafatj15-53-3399 History of Present illness Narrative* Jignesh Gonsalez [...] (CMS/HCC) BP controlled and monitor PRN. * Jginesh Gonsalez MD - 02/20/2025 1:30 PM EDT [...] controlled and monitor PRN. documented in this encounterSaint John's Saint Francis [id number] [facility] Chief Complaint: Patient here for follow up [facility]. Underwent heart cath on 01/11/[address] [...] needed each day., Disp: , Rfl: HYDROcodone-acetaminophen ([place]) 5-325 mg tablet, take 1 tablet by [...] or chew., Disp: 30 tablet, Rfl: 0 foimtnzwhswh-lldr-wxxqhjsd-folic acid (Multivitamin 50 Plus) tablet, 1 (one) [...] PSYCH: appropriate mood, affect, and judgement. INVESTIGATIONS: Echocardiogram-[facility] Name: NAZARIO CORTES Study Date: 01/11/2025 10:06 AM B/P: 142 mmHg/84 mmHg HR: Date of : 1955 Location: [facility] Height: 74 in. Age: 69 year(s) Patient Room : 3140 Weight: (more content not included)...[facility] 01-21-20[facility] History of Present illness Narrative* Jignesh Gonsalez MD - 01/21/2025 2:20 PM ESTAssociated Problem(s): SOB (shortness of breath) on exertion Signs of COPD and check PFTs. Start albuterol PRN. * Jignesh Gonsalez MD - 01/21/2025 2:20 PM ESTAssociated Problem(s): Coronary artery disease involving inaja coronary artery of inaja heart without angina pectoris (CMS/HCC) Symptoms improved with medication change and follow with cardiology. * Jignesh Gonsalez MD - 01/21/2025 1:45 PM EST Images from the original note were not included. Subjective Patient ID: Nathan Cortes is a 69 y.o. male who presents for Follow-up (Hospital f/up [place]). Hospital follow up from 01/09-01/13 for unstable angina. Developed chest pain and to ER. CE normal and echo normal. Continued to have pain and seen by cardiology. Concerned of unstable angina and transferred to [facility] 01/10. Heart cath performed and showed 3 [...] Addressed This Visit Coronary artery disease involving inaja coronary artery of inaja heart without angina pectoris (CMS/HCC) - Primary Symptoms improved with medication change and follow with cardiology. SOB (shortness of breath) on exertion Signs of COPD and check PFTs. Start albuterol PRN. Relevant Medications albuterol HFA 90 mcg/act inhaler Other Relevant Orders Pulmonary Function Test documented in this encounterSaint John's Saint [facility] [id number] NoteSent the AVS to [facility]02-[facility] NotePhysical Therapy Physical Therapy Evaluation Patient [...] year old male present as transfer from [facility] for chest pain. 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) History of colonic polyps History of falling Hx of malignant neoplasm Hyperlipidemia Internal derangement of right knee Lumbar degenerative disc disease Major depressive disorder, recurrent episode, mild Malignant neoplasm of urinary bladder (CMS/HCC) Neuropathy due to chemotherapeutic drug Obesity Seizure disorder ([facility]/HCC) Bilateral leg edema Chest pain due to CAD Chronic depression Dupuytren contracture Gall bladder disease Impacted cerumen of both ears Arthritis Inflammation of both sacroiliac joints Left elbow pain Lumbar spondylosis KAROL (obstructive sleep apnea) Polyneuropathy due to other toxic agents Rheumatic fever Transient ischemic attack (TIA) Unstable angina ([facility]/HCC) Past Medical History: Diagnosis Date Bladder cancer ([facility]/HCC) around 1997 Cholelithiasis Colon polyp Depression Dyslipidemia [...] Level of Function Prior Function Level of [place]: Independent with ADLs and functional transfers, Independent [...] 1: Independent Bed Mobilit (more content not included)...[facility]-2025 NoteHospital Medicine Discharge Summary Final Discharge Diagnosis: Unstable angina KAROL History of seizures Hyperlipidemia Falls at home Obese class 2 - BMI 40 Admission Diagnosis: Unstable angina (CMS/[facility]) [I20.0] Hospital course: Nazario Cortes is an 69 y.o. male who came from [facility] with Angina pectoris unstable. Patient is a 69-year-old male with the following past medical history CAD, HLD, depression, history of seizures, obstructive sleep apnea, obesity, history of bladder cancer diagnosed 2018 with tumor removal. Patient was transferred from [facility] where he has been admitted on being managed for chest pain. He was seen by cardiology and after consultation patient was transferred to [facility] for cardiac catheterization tomorrow. He states that [...] consulted. WE will arrange home health through [facility]. Surgical, Invasive or Diagnostic Procedures Done During [...] left radial artery was obtained. A 6 [place] [employer] glide sheath was inserted without difficulty. Bilateral [...] as: Toprol-XL Take 1 (more content not included)...[facility] 01-12-2025 Note Attestation signed by Jony [...] to the follow-up visit Jony Webber MD, [facility] Cardiology Progress Note Subjective Subjective: Patient was [...] Value Ventricular Rate 70 Atrial Rate 70 LA Interval 210 QRS DURATION 78 QT Interval 410 QTC CALCULATION(BAZETT) 442 P Schlater 35 R-Schlater -9 T Wave Schlater 36 Impression Sinus rhythm with 1st degree A-V block Otherwise normal ECG When compared with ECG of 20-NOV-2020 10:48, LA interval has increased Confirmed by Thomas YOUNGER, MILAGROS Garcia ([id number]) on 01/11/2025 1:02:38 PM Lab Results Component Value Date TROPONINI 0.01 01/11/2025 Transthoracic echo (TTE) complete Result Date: 01/11/2025 1 1 [facility] Heart Station [address] [place] [address] [phone] (fax) Echocardiogram-[facility] Name: NAZARIO CORTES Study Date: 01/11/2025 10:06 AM B/P: 142 mmHg/84 mmHg HR: Date of : 1955 Location: [facility] Height: 74 in. Age: 69 year(s) Patient Room: [facility] Weight: 306 lb. Gender: Male Patient Status: [...] PGmax 3 mmHg L (more content not included)...[facility] Progress [facility] - 01/12/2025 11:29 AM; Room: [facility]/3140- Admission: 01/11/2025 12:29 AM; Length of stay: 1 days THE HOSPITALIST TEAM PREFERS TO USE [facility] [facility] ? CHAT FOR NON-URGENT COMMUNICATION 7AM-7PM. IF I DO NOT RESPOND WITHIN 20 MINUTES OR URGENT MATTERS, PLEASE CALL THROUGH THE [employer]OWER [employer]. FROM 7PM-7AM, PLEASE PAGE [phone](COVR). Code Status: Full Code Barriers to Discharge: chest pain Expected Discharge Date: tomorrow? Discharge Destination: home Overview Nazario Cortes is an 69 y.o. male who came from [facility] with Angina pectoris unstable. Patient is a 69-year-old male with the following past medical history CAD, HLD, depression, history of seizures, obstructive sleep apnea, obesity, history of bladder cancer diagnosed 2018 with tumor removal. Patient was transferred from [facility] where he has been admitted on being managed for chest pain. He was seen by cardiology and after consultation patient was transferred to [facility] for cardiac catheterization tomorrow. He states that [...] Active Inpatient Problems Principal Problem: Unstable angina (CMS/[facility]) Active Problems: Coronary arteriosclerosis Dyslipidemia Malignant neoplasm of urinary bladder (CMS/HCC) Seizure disorder ([facility]) Lumbar spondylosis Assessment and Plan Unstable angina [...] LDL 97 01/12/2025 No results found for: [id number] , IRON , TIBC , C3 , [...] spine. Fibrosis and sc (more content not included)...[facility]-2025 Notecommunication received that Patient is reporting having multiple falls at home and is reporting spouse has a nurse Enedelia from [facility], so would like [facility] if needing HHC services. Preliminary referral sent to Sarah, via [employer].[facility]02-21-2025 Note01/11/25 1606 Admission Assessment Questions Verify [...] Interested Does the patient have a manager rn case assigned to them through their insurance? No [...] you able to send link and activate [employer] Inchart? MyChart already active [facility]02-21-2025 Note-Patient pain control. -Patient's hydrocodone 5/325 as needed -Continue other home medications per reconciliation Maintain DVT prophylaxis DVT protocols GI protection Protonix Monitor labs and correct abnormalities Discussed the plan of care with patient's nurse and with the patient himself and he is in agreement.[facility]02-21-2025 Note-Continue statins.[facility]02-21-2025 Note-Treat with statins -Manage also with nitrates -Aspirin -Consult cardiology and prep for heart cath later on today.[facility]02-21-2025 Note-Seizures currently stable resume and reconcile home anticonvulsantsUnProMedica [facility] Note-Chronic problem we will continue to monitorUnProMedica [facility] Note-Use nitroglycerin and nitrates -N.p.o. after midnight -Will need to proceed to have cath tomorrow -Consult cardiology.[facility] NoteHospital Medicine History and Physical 01/11/2025 1:38 AM THE HOSPITALIST TEAM PREFERS TO USE [employer] FOR NON-URGENT COMMUNICATION 7AM-7PM. IF I DO NOT RESPOND WITHIN 20 MINUTES OR URGENT MATTERS, PLEASE CALL THROUGH THE TOWER FOREMAN. FROM 7PM-7AM, PLEASE PAGE [phone](COVR). Chief Complaint No chief complaint on file. History of Present Illness Nazario Cortes is an 69 y.o. male who came from [facility] with Angina pectoris unstable. Patient is a 69-year-old male with the following past medical history CAD, HLD, depression, history of seizures, obstructive sleep apnea, obesity, history of bladder cancer diagnosed 2018 with tumor removal. Patient was transferred from [facility] where he has been admitted on being managed for chest pain. He was seen by cardiology and after consultation patient was transferred to [facility] for cardiac catheterization tomorrow. He states that [...] current laboratory findings are available here at [facility]. Review of System and Physical Exam Temp: [...] sleep apnea comes seen on transfer from [facility] with unstable angina. Patient is being prepped for cardiac catheterization tomorrow by cardiology. Assessment & Plan Unstable angina ([facility]) -Use nitroglycerin and nitrates -N.p.o. after midnight -Will need to proceed to have cath tomorrow -Consult cardiology. Coronary arteriosclerosis -Treat with statins -Manage also with nitrates -Aspirin -Consult cardiology and prep for heart cath later on today. Dyslipidemia -Continue statins. Malignant neoplasm of urinary bladder ([facility]) -Chronic problem we will continue to monitor Seizure disorder ([facility]) -Seizures currently stable resume and reconcile home [...] this hospital stay by a member of [facility]. Past Medical History Past Medical History: Diagnosis Date Bladder cancer ([facility]) around 1997 Cholelithiasis Colon polyp Depression Dyslipidemia Hearing loss Left foot drop Peripheral neuropathy Seizure disorder ([facility]) TIA (transient ischemic (more content not included)...[facility] History of Present illness Narrative* Amrik [...] Date Noted Neuropathy due to chemotherapeutic drug ([facility]) 08/04/2023 Degenerative lumbar spinal stenosis 08/04/2023 Deviated nasal septum 10/26/2023 Dyslipidemia ([facility]) 10/26/2023 Major depressive disorder, recurrent episode, mild (HCC) ([facility]) 10/26/2023 Malignant neoplasm of urinary bladder ([facility]) 10/26/2023 Seizure disorder ([facility]) 10/26/2023 Coronary arteriosclerosis ([facility]) 07/21/2020 Class 3 severe obesity due to excess calories with serious comorbidity and body mass index (BMI) of40.0 to 44.9 in adult ([facility]) 01/12/2021 Encounter for long-term current use of medication 11/29/2023 Screening PSA (prostate specific antigen) 11/29/2023 Chest pain due to CAD ([facility]) 01/11/2024 KAROL (obstructive sleep apnea) 02/21/2024 Bilateral [...] pain Seizures (CMS/HCC) Sleep apnea 1998 Stroke ([facility]) 2009 Syncope, unspecified syncope type Tinnitus 1997 [...] BID on the RT. documented in this encounterSaint John's Saint Francis [id number] History of Present illness Narrative* Jose M [...] you, Ashley Rea DO documented in this encounterSaint John's Saint Francis [id number] History of Present illness Narrative* Jignesh Gonsalez [...] Advised not to smoke. documented in this encounterSaint John's Saint Francis [id number] Telephone encounter Note* Telephone Encounter - ANNABELLE Bueno - 11/06/2024 1:01 PM EST Spoke to Janet, Chart was audited from 05/20/23 and needed my signature on the document.. added and faxed to [employer]. [facility] Work Phone: [phone]) 711-312212-17-2024 Miscellaneous Notes* Telephone Encounter - ANNABELLE Bueno - 11/06/2024 1:01 PM EST Spoke to Janet, Chart was audited from 05/20/23 and needed my signature on the document.. added and faxed to [employer]. * Telephone Encounter - Mallory Knight - 11/06/2024 9:02 AM EST Her name is Janet that called not Neetu. * Telephone Encounter - Mallory Knight - 11/06/2024 8:57 AM EST Neetu from [facility] center called and left vm that she needs a return call. She stated she has called a few times and has not received a call back regarding this patient. I tried to call back and it just kept ringing. Please call her back at [phone]. documented in this [facility]12-17-2024 Telephone encounter Note* Telephone Encounter - Malloryclary Knight - 11/06/2024 9:02 AM EST Her name is Janet that called not Neetu. [facility] [id number] Telephone encounter Note* Telephone Encounter - Mallory Eugene - 11/06/2024 8:57 AM EST Neetu from [facility] called and left vm that she needs a return call. She stated she has called a few times and has not received a call back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
[2025-06-03 02:15] LABS: SARS-CoV-2 Ag NEGATIVE (NEGATIVE)
[2025-06-03 02:20] LABS: Lactate/Lactic Acid 2.1 mmol/L (0.4-2.0)
[2025-06-03] MEDS: 0.9 % SODIUM CHLORIDE 1,000 ML 150 ML IV (02:39)
[2025-06-03] MEDS: ENOXAPARIN SODIUM 40 MG/0.4 ML SYRINGE SUBQ ×2 (02:39→09:00)
[2025-06-03] MEDS: ALBUTEROL SULFATE 2.5 MG/3 ML VIAL NEB IH (04:45)
[2025-06-03 06:05] LABS: Hematocrit 38.9 % (42.0-54.0); Hemoglobin 12.7 g/dL (14.0-18.0); Immature Granulocytes Abs Auto 0.02 10^3/uL (0.00-0.03); Immature Granulocytes Pct Auto 0.3 % (0.0-0.5); Lymphocytes Absolute Auto 0.5 10^3/uL (1.2-3.8); Mean Corpuscular HGB Conc 32.6 g/dL (29.9-35.2); Mean Corpuscular Hemoglobin 33.6 pg (25.9-34.0); Mean Corpuscular Volume 102.9 fL (80.0-94.0); Platelet Count 123 10^3/uL (150-450); Red Blood Count 3.78 10^6/uL (4.70-6.10); White Blood Count 6.1 10^3/uL (4.0-11.0)
[2025-06-03 06:24] LABS: Glucose 160 mg/dL (74-106); Magnesium 1.6 mg/dL (1.8-2.4)
[2025-06-03 06:53] LABS: Lactate/Lactic Acid 2.3 mmol/L (0.4-2.0)
[2025-06-03 08:55] LABS: Glucose Urine UA NEGATIVE (NEGATIVE)
[2025-06-03] MEDS: METHYLPREDNISOLONE SOD SUCC PF 40 MG/ML VIAL IVP ×2 (09:00→21:47)
[2025-06-03] MEDS: IPRATROPIUM/ALBUTEROL SULFATE 3 ML AMPUL.NEB IH ×3 (09:05→20:11)
[2025-06-03] MEDS: 0.9 % SODIUM CHLORIDE 250 ML 10 ML IV (10:25)
--- NOTE | 2025-06-03 10:32 | SWNOTE1 ---
Important Message from Medicare reviewed and discussed with patient. Pt. verbalized understanding and signed the form. Original given to patient and copy placed in patient?s chart.
--- NOTE | 2025-06-03 10:33 | SWNOTE1 ---
DINA and I met with pt in room to discuss d/c needs. Pt is from home and lives with . He voices he uses a wheelchair, walker, and lift chair. Pt also uses home oxygen at 2 liters. He has a CPAP as well. Pt has had [facility] in past. He voices he would like to be set up with them again. SW voiced to pt we will check with Dr to make sure we can set up him up with home health. Pt denies any other needs for d/c at this time. SW to follow as needed. DINA messaged Dr. Munoz about setting up pt with home health, he was okay with this. SW to fax referral to [facility].
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
--- NOTE | 2025-06-03 11:19 | PM.HP ---
HPI H&P: HPI History of Present Illness Chief complaint: SOB, COPD Narrative: Mr. Waddell is a 70-year-old gentleman with a history of COPD and chronic hypoxic respiratory failure. Patient came in with worsening shortness of breath, cough and wheezing. Cough productive to yellowish sputum. Low-grade temperature. No chest pain palpitation. No abdominal pain, nausea or vomiting. Opioid HPI Opioid Management Most Recent Pain and Opioid Data: Last Pain Scale 4 03/09/25, 22:00 Last Pain Intensity 0 03/08/25, 10:45 Last Pain Assessment Today, 02:00 Last MAR Pain Assessment 06/02/25, 22:25 Last ORT Total Score 0 Today, 01:35 Last ORT Risk Category Low Risk Today, 01:35 Review of Systems ROS Status of ROS 10 or more systems reviewed and unremarkable except as noted in history and below [facility] Medical History Right lower lobe pneumonia ?J18.9 - Pneumonia, unspecified organism (ICD-10) Essential (primary) hypertension ?I10 - Essential (primary) hypertension (ICD-10) Seizure disorder ?G40.909 - Epilepsy, unspecified, not intractable, without status epilepticus (ICD-10) CAD (coronary artery disease) ?I25.10 - Atherosclerotic heart disease of [place] coronary artery without angina pectoris (ICD-10) Cervical vertebral fusion ?M43.22 - Fusion of spine, cervical region (ICD-10) Lipoma of axilla ?D17.20 - Benign lipomatous neoplasm of skin and subcutaneous tissue of unspecified limb (ICD-10) Rupture, tendon, Achilles ?S86.019A - Strain of unspecified Achilles tendon, initial encounter (ICD-10) Syncope ?R55 - Syncope and collapse (ICD-10) Seizure ?R56.9 - Unspecified convulsions (ICD-10) Malignant neoplasm of mediastinum ?C38.3 - Malignant neoplasm of mediastinum, part unspecified (ICD-10) Depression ?F32.A - Depression, unspecified (ICD-10) Dyslipidemia ?E78.5 - Hyperlipidemia, unspecified (ICD-10) Deviated nasal septum ?J34.2 - Deviated nasal septum (ICD-10) Degenerative lumbar spinal stenosis ?M48.061 - Spinal stenosis, lumbar region without neurogenic claudication (ICD-10) 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 - Drug-induced polyneuropathy (ICD-10) ?T45.1X5A - Adverse effect of antineoplastic and immunosuppressive drugs, initial encounter (ICD-10) CAD, multiple vessel ?I25.10 - Atherosclerotic heart disease of [place] coronary artery without angina pectoris (ICD-10) 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 - Malignant neoplasm of mediastinum, part unspecified (ICD-10) Bladder cancer ?C67.9 - Malignant neoplasm of bladder, unspecified (ICD-10) HLD (hyperlipidemia) ?E78.5 - Hyperlipidemia, unspecified (ICD-10) Chest pain ?R07.9 - Chest pain, unspecified (ICD-10) Surgical History History of cataract surgery ?Z98.49 - Cataract extraction status, unspecified eye (ICD-10) History of foot surgery ?Z98.890 - Other specified postprocedural states (ICD-10) History of esophagogastroduodenoscopy (EGD) ?Z98.890 - Other specified postprocedural states (ICD-10) History of colonoscopy ?Z98.890 - Other specified postprocedural states (ICD-10) History of neck surgery ?Z98.890 - Other specified postprocedural states (ICD-10) H/O shoulder surgery ?Z98.890 - Other specified postprocedural states (ICD-10) History of cholecystectomy ?Z90.49 - Acquired absence of other specified parts of digestive tract (ICD-10) Family History Father Family history of myocardial infarction Sister Family history of cancer Other Family history of coronary artery disease Family history of diabetes mellitus Family history of gastric cancer Family history of heart disease Family history of hypertension Family history of kidney cancer Family history of stroke Social History Within the past year, how often did you have a drink containing alcohol: never Score interpretation: A score less than 4 is consistent with normal alcohol consumption. Smoking status: Former smoker Non-prescribed substance use: denies use Previous occupational history: retired Highest level of school completed/degree received: high school graduate Are you now , , , , never or living with a partner: In a typical week, how many times do you talk on the telephone with family, friends, or neighbors: 3 or more times per week How often do you get together with friends or relatives: 3 or more times per week Little interest or pleasure in doing things: more than half the days Feeling down, depressed, or hopeless: more than half the days Feel stressed/tense/nervous/anxious/difficulty sleeping: to some extent Life stressors: other Life stressor details: health Gender Identity: male Meds Home Medications and Allergies Home Medications ?Medication ?Instructions ?Recorded ?Confirmed ?Type atorvastatin 10 mg tablet 10 mg PO .hs 05/12/23 06/02/25 History citalopram 40 mg tablet 40 mg PO DAILY 05/12/23 06/02/25 History phenytoin sodium extended 100 mg 200 mg PO TID 05/12/23 06/02/25 History capsule furosemide 40 mg tablet 40 mg PO DAILY PRN edema 05/24/24 06/02/25 History nitroglycerin 0.3 mg sublingual 0.3 mg sublingual Q5M PRN chest 05/24/24 06/03/25 History tablet pain psyllium husk 0.4 gram capsule 0.4 g PO DAILY 12/04/24 06/02/25 History (Daily Fiber) aspirin 81 mg tablet,delayed 81 mg PO DAILY 01/09/25 06/02/25 History release (Adult Low Dose Aspirin) albuterol sulfate 90 mcg/actuation 2 inh inhalation Q4H PRN shortness 02/21/25 06/02/25 History aerosol inhaler of breath or wheezing fluticasone propionate 50 2 spray intranasal DAILY 02/21/25 06/02/25 History mcg/actuation nasal spray,suspension metoprolol succinate 25 mg 25 mg PO DAILY 02/21/25 06/02/25 History tablet,extended release 24 hr spironolactone 25 mg tablet 25 mg PO DAILY 02/21/25 06/02/25 History phenobarbital 32.4 mg tablet 64.8 mg PO TID 03/24/25 06/02/25 History triamcinolone acetonide 0.5 % 1 applic topical TID 03/24/25 06/02/25 History topical cream tiotropium bromide 18 mcg capsule 1 cap inhalation DAILY 30 days #30 03/27/25 06/03/25 Rx with inhalation device (Spiriva caps with HandiHaler) benzonatate 100 mg capsule 100 mg PO Q6H PRN cough #20 caps 04/14/25 06/02/25 Rx meclizine 25 mg tablet 25 mg PO .Q8 06/02/25 06/03/25 History omeprazole 40 mg capsule,delayed 40 mg PO DAILY 06/02/25 06/03/25 History release umeclidinium 62.5 mcg/actuation 62.5 mcg inhalation Q24H 06/02/25 06/03/25 History blister powder for inhalation (Incruse Ellipta) fluticasone 500 mcg-salmeterol 50 1 inh inhalation Q12H 06/03/25 06/03/25 History mcg/dose blistr powdr for inhalation Allergies Allergy/AdvReac Type Severity Reaction Status Date / Time oxycodone (From OxyContin) Allergy Severe Anaphylaxis Verified 06/02/25 21:32 gabapentin Allergy Unknown Unknown Verified 06/02/25 21:32 Exam Narrative Exam Narrative: [pt is awake and alert. oriented to place, time and person, morbidly obese HEENT: [place] conjunctiva and NL buccal mucosa Neck: Supple, no tenderness Endocrine: No Thyromegaly. Vascular: No JVD or carotid bruit. Lymphatic: No cervical lymphadenopathy. Chest: Bibasilar wheezing or rhonchi Heart RRR, no extra sound or murmur. Abd: Soft, no tenderness, no rebound and no rigidity. Increase abd girth therefore clinically I could not exclude the possibility of intra abd mass or organomegaly. LE: No cyanosis or clubbing, no varices or edema. Neuro: A A O. Nl speech, comprehension and attention. Nl and symetrical motor and tone examination through out. []] Constitutional Vital Signs, click to edit/add: Last Vital Signs Temp 97.6 F 06/03/25 08:00 Pulse 71 06/03/25 09:06 Resp 20 06/03/25 09:06 BP 129/64 06/03/25 08:00 Pulse Ox 92 L 06/03/25 09:06 O2 Del Method Nasal Cannula 06/03/25 09:06 O2 Flow Rate 2 06/03/25 09:06 Results Labs Labs: Short CBC 06/02/25 06/03/25 Range/Units 21:52 05:59 WBC 6.7 6.1 (4.0-11.0) 10^3/uL Hgb 14.0 12.7 L (14.0-18.0) g/dL Hct 42.0 38.9 L (42.0-54.0) % Plt Count 146 L 123 L (150-450) 10^3/uL BMP 06/02/25 06/03/25 21:52 05:59 Sodium 138 Potassium 4.2 Chloride 100 Carbon Dioxide 30.2 BUN 17.0 Creatinine 0.85 Glucose 96 160 H Calcium 8.6 Liver Function 06/02/25 Range/Units 21:52 Total Bilirubin 0.3 (0.2-1.0) mg/dL AST 31 (15-37) U/L ALT 27 (16-63) U/L Alkaline Phosphatase 156 H (46-116) U/L Albumin 3.3 L (3.4-5.0) g/dL Urine 06/03/25 Range/Units 08:26 Urine Color Lt. yellow (YELLOW) Urine Clarity Clear (CLEAR) Urine pH 6.0 (5.0-9.0) Ur Specific [place] 1.010 (1.005-1.025) Urine Protein Negative (NEG/TRACE) mg/dL Urine Glucose (UA) Negative (NEGATIVE) mg/dL Assessment and Plan Assessment and Plan (1) RLL pneumonia: (2) Acute exacerbation of chronic obstructive pulmonary disease: (3) Chronic hypoxic respiratory failure: (4) Obesity: (5) Influenza A: Plan Acute COPD exacerbation Chronic hypoxic respiratory failure. Community-acquired pneumonia, bacterial Positive influenza, suspect bacterial superimposed on viral pneumonia. I had accepted to admit patient to the medical floor. Oxygen supplementation. Albuterol, Atrovent and Solu-Medrol Intravenous Zithromax and ceftriaxone Tamiflu CAT scan of the chest to take a better look at the lung parenchyma and rule out underlying malignancy History of seizure. No active seizure. Resume preadmission phenobarbital and Dilantin. Morbid obesity Counseling and education about diet and exercise as well as lifestyle modification CAD. No prior stenting. Continue aspirin Hypomagnesemia Magnesium supplementation Chronic medical conditions not listed above, incidental findings seen on labs and imaging. These would need to be addressed. Could be addressed when time and condition are appropriate. Could be addressed in the outpatient setting by PCP collaboration with other needed outpatient providers.
--- NOTE | 2025-06-03 11:50 | SWNOTE1 ---
SW received a message and [facility] can accept.
--- NOTE | 2025-06-03 12:16 | SWNOTE1 ---
Referral was sent to [facility] and they are able to accept. Referral included face sheet and physician notes.
[2025-06-03] MEDS: OSELTAMIVIR PHOSPHATE 75 MG CAPSULE PO ×2 (12:20→21:47)
[2025-06-03] MEDS: PHENYTOIN 100 MG 200 MG PO ×2 (14:10→21:47)
--- NOTE | 2025-06-03 14:50 | CT_ITS ---
The [address] [address] Patient Name: GÓMEZ CORTES MRN: [id number] date: 1955 Sex: M Assigned Patient Location: Current Patient Location: Accession/Order Number: [id number] Exam Date: 06/04/2025 00:18 Report Date: 06/04/2025 00:23 At the request of: PEDRO LUIS HENDRICKS MD Procedure: CT chest w con CT chest w con 06/03/2025 2:46 PM SIGN AND SYMPTOMS: Cough, shortness of breath, fatigue CONTRAST: 100 mL of intravenous Omnipaque 300 TECHNIQUE: Multidetector CT axial slices of the chest were obtained with IV contrast. Multiplanar reformats were performed and viewed on a separate workstation and reviewed to further define anatomy and possible pathology. CT was performed with one or more of the following dose reduction techniques: Automated exposure control, adjustment of the mA and/or kV according to patient size, or use of iterative reconstruction technique. COMPARISON: 06/02/2025. FINDINGS: Lower neck: Thyroid gland within normal limits, no supraclavicle adenopathy. Vessels: Atherosclerotic changes are present in the aortic arch, along the origins of the great vessels, and along the coronary arteries.. Mediastinum and [place]: There are mildly prominent mediastinal and hilar lymph nodes none of which are pathologically enlarged. Heart: Normal size. No pericardial effusion. Airways: Within normal limits Lungs: There is pleural-based scarring laterally on the right with interstitial prominence in a basal to apical gradient. Pleura: There is a small left-sided pleural effusion. Chest Wall: Within normal limits. Upper Abdomen: There is evidence of prior cholecystectomy. Bones: Degenerative changes are present throughout the thoracic spine. There is anterior fusion of the lower cervical spine. Remote healed or healing bilateral rib fractures are noted. CT/CT chest w con IMPRESSION: There is pleural-based scarring laterally on the right with interstitial prominence in a basal to apical gradient. There is a small left-sided pleural effusion. There are mildly prominent mediastinal and hilar lymph nodes none of which are pathologically enlarged. This may be reactive in nature. Impression dictated by: Ivan Dockery M.D. 06/04/2025 12:23 AM Dictation Location: [place] [address] Electronically authenticated by: [id number] Y Date: 06/04/2025 00:23
[2025-06-03] MEDS: ATORVASTATIN CALCIUM 10 MG TABLET PO (21:47)
[2025-06-03] MEDS: MAGNESIUM OXIDE 400 MG TABLET PO (21:47)
[2025-06-03] MEDS: ACETAMINOPHEN 325 MG TABLET 650 MG PO (23:55)
[2025-06-04] VITALS (8 sets, daily range): BP systolic 119–139; BP diastolic 67–75; PULSE 68–75; TEMP 36.4–37.2; O2SAT 92–96
[2025-06-04] MEDS: BENZONATATE 100 MG CAPSULE PO (03:17)
[2025-06-04] MEDS: PHENYTOIN 100 MG 200 MG PO ×3 (05:46→22:05)
[2025-06-04] MEDS: PANTOPRAZOLE SODIUM 40 MG TABLET.DR PO (05:47)
[2025-06-04] MEDS: IPRATROPIUM/ALBUTEROL SULFATE 3 ML AMPUL.NEB IH ×3 (09:24→20:06)
[2025-06-04] MEDS: OSELTAMIVIR PHOSPHATE 75 MG CAPSULE PO ×2 (09:28→22:05)
[2025-06-04] MEDS: SPIRONOLACTONE 25 MG TABLET PO (09:28)
[2025-06-04] MEDS: METOPROLOL SUCCINATE 25 MG TAB.ER.24H PO (09:28)
[2025-06-04] MEDS: METHYLPREDNISOLONE SOD SUCC PF 40 MG/ML VIAL IVP ×2 (09:28→22:04)
[2025-06-04] MEDS: ENOXAPARIN SODIUM 40 MG/0.4 ML SYRINGE SUBQ (09:28)
[2025-06-04] MEDS: CITALOPRAM HYDROBROMIDE 20 MG TABLET 40 MG PO (09:28)
[2025-06-04] MEDS: ASPIRIN 81 MG TABLET.DR PO (09:28)
[2025-06-04] MEDS: MAGNESIUM OXIDE 400 MG TABLET PO ×2 (09:28→22:05)
--- NOTE | 2025-06-04 11:25 | P.PN_ITS ---
Progress Note: Subjective Subjective Interval history: Patient is feeling better. Persistent cough and congestion. No chest pain. No abdominal pain. No nausea or vomiting Exam Narrative Exam Narrative: [pt is awake and alert. oriented to place, time and person, morbidly obese HEENT: [place] conjunctiva and NL buccal mucosa Neck: Supple, no tenderness Endocrine: No Thyromegaly. Vascular: No JVD or carotid bruit. Lymphatic: No cervical lymphadenopathy. Chest: Bibasilar wheezing or rhonchi Heart RRR, no extra sound or murmur. Abd: Soft, no tenderness, no rebound and no rigidity. Increase abd girth therefore clinically I could not exclude the possibility of intra abd mass or organomegaly. LE: No cyanosis or clubbing, no varices or edema. Neuro: A A O. Nl speech, comprehension and attention. Nl and symetrical motor and tone examination through out. []] Constitutional Vital Signs, click to edit/add: Last Vital Signs Temp 98.1 F 06/04/25 08:00 Pulse 71 06/04/25 09:24 Resp 18 06/04/25 09:24 BP 126/70 06/04/25 08:00 Pulse Ox 96 06/04/25 09:24 O2 Del Method Nasal Cannula 06/04/25 09:24 O2 Flow Rate 2 06/04/25 09:24 Progress Note: A&P Assessment and Plan (1) RLL pneumonia: (2) Acute exacerbation of chronic obstructive pulmonary disease: (3) Chronic hypoxic respiratory failure: (4) Obesity: (5) Influenza A: Plan Acute COPD exacerbation Chronic hypoxic respiratory failure. Community-acquired pneumonia, bacterial Positive influenza, suspect bacterial superimposed on viral pneumonia. I had accepted to admit patient to the medical floor. Oxygen supplementation. Albuterol, Atrovent and Solu-Medrol Intravenous Zithromax and ceftriaxone Tamiflu CAT scan of the chest to take a better look at the lung parenchyma and rule out underlying malignancy. CAT scan does not show any malignancy. History of seizure. No active seizure. Resume preadmission phenobarbital and Dilantin. Morbid obesity Counseling and education about diet and exercise as well as lifestyle modification CAD. No prior stenting. Continue aspirin Hypomagnesemia Magnesium supplementation DVT prophylaxis Lovenox subcu Anemia, no evidence of acute blood loss. Patient will likely require to have anemia workup to be done in the outpatient setting to be handled by PCP in collaboration with other needed outpatient providers. This may include but not limited to EGD, colonoscopy, referral to see hematology and other needed age-appropriate cancer screening. Chronic medical conditions not listed above, incidental findings seen on labs and imaging. These would need to be addressed. Could be addressed when time and condition are appropriate. Could be addressed in the outpatient setting by PCP collaboration with other needed outpatient providers.
--- NOTE | 2025-06-04 11:58 | CM.NOTE ---
Rounds made with Dr. Munoz, discussed with pt plan of care and results of scan. No discharge today.
--- NOTE | 2025-06-04 12:37 | CM.NOTE ---
Pt is established with breaker oiler Dr. Portillo, pt voices he will be too far to continue with him. Pt requesting to see a breaker oiler in [place], pt lives in [place]. Pt given contact information for breaker oiler in [place], [place] and explained that he will need a referral. Pt will speak with Dr. Manjarrez regarding need for referral.
[2025-06-04] MEDS: ACETAMINOPHEN 325 MG TABLET 650 MG PO (13:37)
--- NOTE | 2025-06-04 13:56 | CM.NOTE ---
Pt requests to speak with Case Management, pt now requesting to see [facility] university manager. Med Surg payroll secretary will call to schedule prior to pt's discharge.
--- NOTE | 2025-06-04 14:57 | CM.NOTE ---
Unable to schedule f/u for pulmonology without PCP referral. Pt given name, address and contact number for [facility].
[2025-06-04] MEDS: ATORVASTATIN CALCIUM 10 MG TABLET PO (22:05)
[2025-06-04] MEDS: AZITHROMYCIN 500 MG in 0.9 % SODIUM CHLORIDE 250 ML 250 MG IV (22:05)
[2025-06-05] VITALS (8 sets, daily range): BP systolic 112–146; BP diastolic 68–82; PULSE 63–75; TEMP 36.7–37.1; O2SAT 2–94
[2025-06-05] MEDS: PANTOPRAZOLE SODIUM 40 MG TABLET.DR PO (06:27)
[2025-06-05] MEDS: 0.9 % SODIUM CHLORIDE 250 ML 10 ML IV (06:28)
[2025-06-05] MEDS: PHENYTOIN 100 MG 200 MG PO ×3 (06:28→21:15)
[2025-06-05] MEDS: IPRATROPIUM/ALBUTEROL SULFATE 3 ML AMPUL.NEB IH ×2 (08:22→20:24)
[2025-06-05] MEDS: OSELTAMIVIR PHOSPHATE 75 MG CAPSULE PO ×2 (08:45→21:15)
[2025-06-05] MEDS: METHYLPREDNISOLONE SOD SUCC PF 40 MG/ML VIAL IVP ×2 (08:45→21:15)
[2025-06-05] MEDS: ASPIRIN 81 MG TABLET.DR PO (08:45)
[2025-06-05] MEDS: MAGNESIUM OXIDE 400 MG TABLET PO ×2 (08:45→21:15)
[2025-06-05] MEDS: SPIRONOLACTONE 25 MG TABLET PO (08:45)
[2025-06-05] MEDS: METOPROLOL SUCCINATE 25 MG TAB.ER.24H PO (08:45)
[2025-06-05] MEDS: ENOXAPARIN SODIUM 40 MG/0.4 ML SYRINGE SUBQ (08:45)
[2025-06-05] MEDS: CITALOPRAM HYDROBROMIDE 20 MG TABLET 40 MG PO (08:45)
--- NOTE | 2025-06-05 09:50 | CM.NOTE ---
Plan of care reviewed with Dr. Munoz. No discharge today. Continue with current treatment plan.
--- NOTE | 2025-06-05 09:59 | PM.PN ---
Progress Note: Subjective Subjective Interval history: Persistent cough and congestion. No chest pain. No abdominal pain. No nausea or vomiting Exam Narrative Exam Narrative: [pt is awake and alert. oriented to place, time and person, morbidly obese HEENT: [place] conjunctiva and NL buccal mucosa Neck: Supple, no tenderness Endocrine: No Thyromegaly. Vascular: No JVD or carotid bruit. Lymphatic: No cervical lymphadenopathy. Chest: [place] wheezing or rhonchi Heart RRR, no extra sound or murmur. Abd: Soft, no tenderness, no rebound and no rigidity. Increase abd girth therefore clinically I could not exclude the possibility of intra abd mass or organomegaly. LE: No cyanosis or clubbing, no varices or edema. Neuro: A A O. Nl speech, comprehension and attention. Nl and symetrical motor and tone examination through out. []] Constitutional Vital Signs, click to edit/add: Last Vital Signs Temp 98.0 F 06/05/25 08:01 Pulse 69 06/05/25 08:01 Resp 20 06/05/25 09:09 BP 143/82 H 06/05/25 08:01 Pulse Ox 2 L 06/05/25 09:09 O2 Del Method Nasal Cannula 06/05/25 09:09 O2 Flow Rate 93 06/05/25 09:09 Progress Note: A&P Assessment and Plan (1) RLL pneumonia: (2) Acute exacerbation of chronic obstructive pulmonary disease: (3) Chronic hypoxic respiratory failure: (4) Obesity: (5) Influenza A: Plan Acute COPD exacerbation Chronic hypoxic respiratory failure. Community-acquired pneumonia, bacterial Positive influenza, suspect bacterial superimposed on viral pneumonia. Oxygen supplementation. Albuterol, Atrovent and Solu-Medrol Intravenous Zithromax and ceftriaxone Tamiflu CAT scan of the chest to take a better look at the lung parenchyma and rule out underlying malignancy. CAT scan does not show any malignancy. CAT scan does not show any significant infiltration. History of seizure. No active seizure. Resume preadmission phenobarbital and Dilantin. Morbid obesity Counseling and education about diet and exercise as well as lifestyle modification CAD. No prior stenting. Continue aspirin Hypomagnesemia Magnesium supplementation DVT prophylaxis Lovenox subcu Anemia, no evidence of acute blood loss. Patient will likely require to have anemia workup to be done in the outpatient setting to be handled by PCP in collaboration with other needed outpatient providers. This may include but not limited to EGD, colonoscopy, referral to see hematology and other needed age-appropriate cancer screening. Chronic medical conditions not listed above, incidental findings seen on labs and imaging. These would need to be addressed. Could be addressed when time and condition are appropriate. Could be addressed in the outpatient setting by PCP collaboration with other needed outpatient providers.
--- NOTE | 2025-06-05 10:35 | ECG_ITS ---
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
--- NOTE | 2025-06-05 14:59 | SWNOTE1 ---
DINA faxed physician note from today to [facility].
[2025-06-05] MEDS: ALBUTEROL SULFATE 2.5 MG/3 ML VIAL NEB IH (17:06)
[2025-06-05] MEDS: AZITHROMYCIN 500 MG in 0.9 % SODIUM CHLORIDE 250 ML 150 MG IV (21:14)
[2025-06-05] MEDS: ATORVASTATIN CALCIUM 10 MG TABLET PO (21:14)
[2025-06-05] MEDS: ACETAMINOPHEN 325 MG TABLET 650 MG PO (21:15)
[2025-06-06] VITALS (10 sets, daily range): BP systolic 117–134; BP diastolic 65–82; PULSE 62–87; TEMP 36.6–36.8; O2SAT 91–97
[2025-06-06] MEDS: PANTOPRAZOLE SODIUM 40 MG TABLET.DR PO (05:42)
[2025-06-06] MEDS: PHENYTOIN 100 MG 200 MG PO ×3 (05:42→20:20)
[2025-06-06 05:52] LABS: Hematocrit 37.9 % (42.0-54.0); Hemoglobin 12.5 g/dL (14.0-18.0); Mean Corpuscular HGB Conc 33.0 g/dL (29.9-35.2); Mean Corpuscular Hemoglobin 33.7 pg (25.9-34.0); Mean Corpuscular Volume 102.2 fL (80.0-94.0); Platelet Count 148 10^3/uL (150-450); Red Blood Count 3.71 10^6/uL (4.70-6.10); White Blood Count 5.2 10^3/uL (4.0-11.0)
[2025-06-06 06:10] LABS: Anion Gap 13.0; Blood Urea Nitrogen 18.0 mg/dL (7.0-18.0); Calcium 8.4 mg/dL (8.5-10.1); Carbon Dioxide 27.7 mmol/L (21.0-32.0); Chloride 107 mmol/L (98-107); Estimated GFR (African America >60 (>=60 mL/min/1.73m^2); Estimated GFR (Non-African Ame >60 (>=60 mL/min/1.73m^2); Glucose 118 mg/dL (74-106); Potassium 4.7 mmol/L (3.5-5.1); Sodium 143 mmol/L (136-145)
[2025-06-06] MEDS: METOPROLOL SUCCINATE 25 MG TAB.ER.24H PO (08:32)
[2025-06-06] MEDS: ENOXAPARIN SODIUM 40 MG/0.4 ML SYRINGE SUBQ (08:32)
[2025-06-06] MEDS: MAGNESIUM OXIDE 400 MG TABLET PO ×2 (08:32→20:21)
[2025-06-06] MEDS: CITALOPRAM HYDROBROMIDE 20 MG TABLET 40 MG PO (08:33)
[2025-06-06] MEDS: SPIRONOLACTONE 25 MG TABLET PO (08:33)
[2025-06-06] MEDS: PREDNISONE 10 MG TABLET PO ×2 (08:33→20:20)
[2025-06-06] MEDS: ASPIRIN 81 MG TABLET.DR PO (08:33)
[2025-06-06] MEDS: OSELTAMIVIR PHOSPHATE 75 MG CAPSULE PO ×2 (08:33→20:20)
[2025-06-06] MEDS: IPRATROPIUM/ALBUTEROL SULFATE 3 ML AMPUL.NEB IH ×3 (09:06→21:24)
--- NOTE | 2025-06-06 10:15 | CM.NOTE ---
Rounds made with Dr. Munoz, discussed plan of care with pt. No discharge today, pt will need continued treatment and monitoring.
--- NOTE | 2025-06-06 12:02 | P.PN_ITS ---
Progress Note: Subjective Subjective Interval history: Persistent cough and congestion. No chest pain. No abdominal pain. No nausea or vomiting Exam Narrative Exam Narrative: [pt is awake and alert. oriented to place, time and person, morbidly obese HEENT: [place] conjunctiva and NL buccal mucosa Neck: Supple, no tenderness Endocrine: No Thyromegaly. Vascular: No JVD or carotid bruit. Lymphatic: No cervical lymphadenopathy. Chest: Bibasilar wheezing or rhonchi much less than the previously noted Heart RRR, no extra sound or murmur. Abd: Soft, no tenderness, no rebound and no rigidity. Increase abd girth therefore clinically I could not exclude the possibility of intra abd mass or organomegaly. LE: No cyanosis or clubbing, no varices or edema. Neuro: A A O. Nl speech, comprehension and attention. Nl and symetrical motor and tone examination through out. []] Constitutional Vital Signs, click to edit/add: Last Vital Signs Temp 97.9 F 06/06/25 08:00 Pulse 66 06/06/25 09:06 Resp 20 06/06/25 09:06 BP 121/72 06/06/25 08:00 Pulse Ox 97 06/06/25 09:06 O2 Del Method Nasal Cannula 06/06/25 09:06 O2 Flow Rate 2 06/06/25 09:06 Progress Note: Objective Labs Labs: Short CBC 06/06/25 Range/Units 05:32 WBC 5.2 (4.0-11.0) 10^3/uL Hgb 12.5 L (14.0-18.0) g/dL Hct 37.9 L (42.0-54.0) % Plt Count 148 L (150-450) 10^3/uL BMP 06/06/25 05:32 Sodium 143 Potassium 4.7 Chloride 107 Carbon Dioxide 27.7 BUN 18.0 Creatinine 0.74 Glucose 118 H Calcium 8.4 L Progress Note: A&P Assessment and Plan (1) RLL pneumonia: (2) Acute exacerbation of chronic obstructive pulmonary disease: (3) Chronic hypoxic respiratory failure: (4) Obesity: (5) Influenza A: Plan Acute COPD exacerbation Chronic hypoxic respiratory failure. Community-acquired pneumonia, bacterial Positive influenza, suspect bacterial superimposed on viral pneumonia. Oxygen supplementation. Albuterol, Atrovent and Solu-Medrol Intravenous Zithromax and ceftriaxone Tamiflu CAT scan of the chest to take a better look at the lung parenchyma and rule out underlying malignancy. CAT scan does not show any malignancy. CAT scan does not show any significant infiltration. Continue current treatment. Patient continues to be symptomatic and not ready for discharge History of seizure. No active seizure. Resume preadmission phenobarbital and Dilantin. Morbid obesity Counseling and education about diet and exercise as well as lifestyle modification CAD. No prior stenting. Continue aspirin Hypomagnesemia Magnesium supplementation DVT prophylaxis Lovenox subcu Anemia, no evidence of acute blood loss. Patient will likely require to have anemia workup to be done in the outpatient setting to be handled by PCP in collaboration with other needed outpatient providers. This may include but not limited to EGD, colonoscopy, referral to see hematology and other needed age-appropriate cancer screening. Chronic medical conditions not listed above, incidental findings seen on labs and imaging. These would need to be addressed. Could be addressed when time and condition are appropriate. Could be addressed in the outpatient setting by PCP collaboration with other needed outpatient providers. Chronic medical conditions not listed above, incidental findings seen on labs and imaging. These would need to be addressed. Could be addressed when time and condition are appropriate. Could be addressed in the outpatient setting by PCP collaboration with other needed outpatient providers.
[2025-06-06] MEDS: ATORVASTATIN CALCIUM 10 MG TABLET PO (20:20)
[2025-06-06] MEDS: GUAIFENESIN 200 MG/DEXTROMETHORPHAN 20 MG 10 ML UNIT DOSE CUP PO (20:21)
[2025-06-06] MEDS: BENZONATATE 100 MG CAPSULE PO (20:21)
[2025-06-06] MEDS: AZITHROMYCIN 250 MG TABLET 500 MG PO (20:21)
[2025-06-07 03:55] VITALS: BP 119/64; PULSE 66; TEMP 36.6; O2SAT 91
[2025-06-07] MEDS: PHENYTOIN 100 MG 200 MG PO ×2 (06:10→13:09)
[2025-06-07] MEDS: PANTOPRAZOLE SODIUM 40 MG TABLET.DR PO (06:10)
--- NOTE | 2025-06-07 08:00 | CM.NOTE ---
2nd Important Message From Medicare discussed with pt, pt denies questions or concerns.
[2025-06-07 08:04] VITALS: BP 128/72; PULSE 68; TEMP 36.6; O2SAT 92
[2025-06-07] MEDS: OSELTAMIVIR PHOSPHATE 75 MG CAPSULE PO (08:37)
[2025-06-07] MEDS: CITALOPRAM HYDROBROMIDE 20 MG TABLET 40 MG PO (08:37)
[2025-06-07] MEDS: SPIRONOLACTONE 25 MG TABLET PO (08:37)
[2025-06-07] MEDS: PREDNISONE 10 MG TABLET PO (08:37)
[2025-06-07] MEDS: MAGNESIUM OXIDE 400 MG TABLET PO (08:37)
[2025-06-07] MEDS: ENOXAPARIN SODIUM 40 MG/0.4 ML SYRINGE SUBQ (08:37)
[2025-06-07] MEDS: ASPIRIN 81 MG TABLET.DR PO (08:37)
[2025-06-07] MEDS: METOPROLOL SUCCINATE 25 MG TAB.ER.24H PO (08:37)
[2025-06-07] MEDS: IPRATROPIUM/ALBUTEROL SULFATE 3 ML AMPUL.NEB IH (09:56)
[2025-06-07 09:57] VITALS: PULSE 73; O2SAT 92
--- NOTE | 2025-06-07 10:04 | P.DS_ITS ---
DS: Providers Provider Date of admission: 06/03/25 01:25 Primary care physician: Jignesh Manjarrez MD DS: Diagnosis Discharge Diagnosis (1) RLL pneumonia: (2) Acute exacerbation of chronic obstructive pulmonary disease: (3) Chronic hypoxic respiratory failure: (4) Obesity: (5) Influenza A: Plan As listed above and others that are not listed DS: Summary Hospital Course Hospital Course: Mr. Waddell is a 1-year-old gentleman who came in with that shortness of breath and was found to have the following: Acute COPD exacerbation Chronic hypoxic respiratory failure. Community-acquired pneumonia, bacterial Positive influenza, suspect bacterial superimposed on viral pneumonia. Oxygen supplementation. Albuterol, Atrovent and Solu-Medrol Intravenous Zithromax and ceftriaxone Tamiflu CAT scan of the chest to take a better look at the lung parenchyma and rule out underlying malignancy. CAT scan does not show any malignancy. CAT scan does not show any significant infiltration. Continue current treatment. Patient will be discharged home on oral Tamiflu, Zithromax, prednisone. He has LAMA LABA and CSI Patient is feeling much better. Approaching baseline state. History of seizure. No active seizure. Resume preadmission phenobarbital and Dilantin. Morbid obesity Counseling and education about diet and exercise as well as lifestyle modification CAD. No prior stenting. Continue aspirin Hypomagnesemia Magnesium supplementation DVT prophylaxis Lovenox subcu Anemia, no evidence of acute blood loss. Patient will likely require to have anemia workup to be done in the outpatient setting to be handled by PCP in collaboration with other needed outpatient providers. This may include but not limited to EGD, colonoscopy, referral to see hematology and other needed age-appropriate cancer screening. Chronic medical conditions not listed above, incidental findings seen on labs and imaging. These would need to be addressed. Could be addressed when time and condition are appropriate. Could be addressed in the outpatient setting by PCP giselle aboration with other needed outpatient providers. Chronic medical conditions not listed above, incidental findings seen on labs and imaging. These would need to be addressed. Could be addressed when time and condition are appropriate. Could be addressed in the outpatient setting by PCP collaboration with other needed outpatient providers. Patient has multiple complex medical issues as listed above and others that are not listed. All appear to be stable. I do not have any clear or strong clinical justification to extend inpatient hospitalization. Patient however will require close and frequent monitoring as well as additional work-up, investigation and therapeutic intervention that could take place from this point on post discharge. That is to prevent relapse, decompensation, rehospitalization and other medical implications. I instructed patient to ask her primary care doctor to obtain [facility] record entirely to address abnormalities seen on labs and imaging that I have and have not addressed during this hospitalization, follow-up on pending blood work, imaging and pathology is if available and to follow-up on needed medical care in the outpatient setting. Time Spent with Patient Time attestation: Total time spent providing and/or coordinating discharge services: Time spent: greater than 30 minutes Exam Constitutional Vital Signs, click to edit/add: Last Vital Signs Temp 97.8 F 06/07/25 08:04 Pulse 68 06/07/25 08:04 Resp 18 06/07/25 08:04 BP 128/72 06/07/25 08:04 Pulse Ox 92 L 06/07/25 08:04 O2 Del Method Nasal Cannula 06/07/25 08:04 O2 Flow Rate 2 06/07/25 08:04 DS: Data Data Completed and Pending Labs on day of discharge: Preliminary micro results at discharge 06/02/25 22:15 Blood Culture Result 2 - Preliminary Blood NO GROWTH AT 36-48 HOURS. FINAL TO FOLLOW. 06/02/25 21:52 Blood Culture Result 1 - Preliminary Blood - Right Antecubital NO GROWTH AT 36-48 HOURS. FINAL TO FOLLOW. Discharge Plan Discharge Disposition: Home, Self-Care Condition: Fair Health Concerns: I may not have addressed or treated all of your medical illnesses or the abnormal blood work or imaging studies during this hospitalization. Please ask your primary care provider to obtain [facility] records entirely to follow up on all of the abnormal physical, laboratory, and imaging findings that I have not addressed. Please return back to the emergency room or seek medical attention if your symptoms worsen or return. Discharging you from [facility] does not mean that your medical care ends here and now. You may still need additional monitoring, work up, investigation, and treatment plan to be handled from this point on by out patient providers including your primary care provider and specialists. For any medication question, please contact your retail pharmacist or your primary care provider. Thank you. Discharge Medications: New prednisone 10 mg Tablet 10 mg PO .as directed Qty: 18 0RF Rx Instructions: Take 1 tablet 3 times a day for 3 days then 1 tablet twice a day for 3 days then 1 tablet daily magnesium oxide 400 mg (241.3 mg magnesium) Tablet 400 mg PO DAILY Qty: 60 0RF oseltamivir 75 mg Capsule 75 mg PO BID Qty: 6 0RF azithromycin [Zithromax] 500 mg tablet 500 mg PO DAILY 3 Days Qty: 3 0RF Rx Instructions: start on day 2 of therapy Continued furosemide 40 mg tablet 40 mg PO DAILY PRN (Reason: edema) nitroglycerin 0.3 mg tablet, sublingual 0.3 mg sublingual Q5M PRN (Reason: chest pain) psyllium husk [Daily Fiber] 0.4 gram capsule 0.4 g PO DAILY aspirin [Adult Low Dose Aspirin] 81 mg tablet,delayed release (DR/EC) 81 mg PO DAILY triamcinolone acetonide 0.5 % cream 1 applic TOPICAL TID phenobarbital 32.4 mg tablet 64.8 mg PO TID tiotropium bromide [Spiriva with HandiHaler] 18 mcg capsule, w/inhalation device 1 cap inhalation DAILY 30 Days Qty: 30 0RF Rx Instructions: puncture 1 cap using device; one dose = 2 inhalations benzonatate 100 mg capsule 100 mg PO Q6H PRN (Reason: cough) Qty: 20 0RF omeprazole 40 mg capsule,delayed release(DR/EC) 40 mg PO DAILY meclizine 25 mg tablet 25 mg PO .Q8 Incruse Ellipta 62.5 mcg/actuation blister with device 62.5 mcg INHALATION Q24H fluticasone propion-salmeterol 500-50 mcg/dose blister with device 1 inh INHALATION Q12H atorvastatin 10 mg tablet 10 mg PO .hs citalopram 40 mg tablet 40 mg PO DAILY phenytoin sodium extended 100 mg capsule 200 mg PO TID spironolactone 25 mg tablet 25 mg PO DAILY metoprolol succinate 25 mg tablet extended release 24 hr 25 mg PO DAILY albuterol sulfate 90 mcg/actuation HFA aerosol inhaler 2 inh INHALATION Q4H PRN (Reason: shortness of breath or wheezing) fluticasone propionate 50 mcg/actuation spray,suspension 2 spray INTRANASAL DAILY Print Language: Canadian Forms: Portal Instructions
--- NOTE | 2025-06-07 10:45 | CM.NOTE ---
Rounds made with Dr. Munoz, pt will discharge to home today with [facility].
--- NOTE | 2025-06-07 12:48 | CM.NOTE ---
Faxed CRF, discharge summary and med list to [facility] for pt's discharge.
--- NOTE | 2025-06-10 14:13 | CM.DCFOLLOWU ---
Person spoke with: Nazario How are you feeling? Still coughing How is your pain? No Did you understand your discharge instructions? Yes Do you have any questions about your discharge instructions? No Were you given any prescriptions at discharge? Yes Were you able to get your prescriptions filled? Yes Do you understand how to take your medications as ordered? Yes Do you have any questions about your follow up appointment and do you plan to keep your follow up appointment? No appointment is scheduled Is there anything else that you would like to discuss? No Questions/Comments/Concerns/Other:
== END 2025-06-07 13:37 | disposition home health service (06) | DRG 194 ==
LOC: ER 06-03 00:58 → MS 06-03 01:29
PROVIDERS: Nurse Practitioner; Admitting Provider Internal Medicine; Emergency Provider Emergency Medicine; PCP Family Medicine; Visit Provider Internal Medicine
DX: J10.08 Influenza due to other identified influenza virus with other specified pneumonia (principal); C38.3 Malignant neoplasm of mediastinum, part unspecified; J96.11 Chronic respiratory failure with hypoxia; Z68.41 Body mass index [BMI] 40.0-44.9, adult; J15.9 Unspecified bacterial pneumonia; J44.0 Chronic obstructive pulmonary disease with (acute) lower respiratory infection; J44.1 Chronic obstructive pulmonary disease with (acute) exacerbation; Z99.81 Dependence on supplemental oxygen; E66.01 Morbid (severe) obesity due to excess calories; G40.909 Epilepsy, unspecified, not intractable, without status epilepticus; I25.10 Atherosclerotic heart disease of native coronary artery without angina pectoris; E83.42 Hypomagnesemia; Z79.899 Other long term (current) drug therapy; Z79.82 Long term (current) use of aspirin; I10 Essential (primary) hypertension; Z87.01 Personal history of pneumonia (recurrent); F32.A Depression, unspecified; E78.5 Hyperlipidemia, unspecified; C67.9 Malignant neoplasm of bladder, unspecified; Z90.49 Acquired absence of other specified parts of digestive tract; Z87.891 Personal history of nicotine dependence; R50.9 Fever, unspecified; D64.9 Anemia, unspecified; J12.9 Viral pneumonia, unspecified
CPT/HCPCS: 36415; 71045; 71046; 71260; 80048; 80053; 81003; 82947; 83605; 83735; 83880; 84484; 85025; 85027; 85378; 87040; 87420; 87804; 87811; 93005; 94640; 94667; 94668; 94761; 96365; 96367; 96375; 99285; J0456; J0696; J1650; J2405; J2919; J7512; Q9967

== ENCOUNTER 2025-07-15 10:59 | Emergency (ER) | payer MEDICARE, MEDICAID, SELFPAY ==
[2025-07-15 11:01] VITALS: BP 145/83; PULSE 68; TEMP 36.7; O2SAT 95; BMI 42.0
--- NOTE | 2025-07-15 11:22 | CT_ITS ---
The [address] [address] Patient Name: GÓMEZ CORTES MRN: [id number] date: 1955 Sex: M Assigned Patient Location: ED.MAIN Current Patient Location: ED.MAIN Accession/Order Number: [id number] Exam Date: 07/15/2025 11:18 Report Date: 07/15/2025 11:37 At the request of: ARMANDO DECKER DO Procedure: CT cervical spine wo con CT CERVICAL SPINE WITHOUT CONTRAST WITH 3D RECONSTRUCTIONS: CLINICAL HISTORY: Neck pain since fall one week ago. Previous fusion COMPARISON: 06/20/2023 TECHNIQUE: Spiral axial unenhanced images were obtained through the cervical spine. Sagittal, coronal and 3D volume-rendered reconstructions were also reviewed. This CT exam was performed using one or more following dose reduction techniques: Automated exposure control, adjustment of the mA and/or kV according to patient size, or use of iterative reconstruction technique. FINDINGS: There is prior C4 laminectomy. There is posterior fusion with rods and pedicle screws extending from C3 through C5. There is also anterior fusion with plate and screws and interbody fusion devices extending from C5 through C7. The hardware was present previously and there is no change in appearance. No developing fractures or displacement are seen. The disc spaces are unchanged. There is mild endplate spurring. Facet hypertrophy is present, greater on the right. The atlantoaxial relationship is maintained and there is similar degenerative change involving the odontoid and anterior C1 arch. No prevertebral soft tissue swelling is seen. Carotid artery plaque is visualized. The upper imaged lungs show no contributory findings. CT/CT cervical spine wo con IMPRESSION: SIMILAR POSTOPERATIVE AND DEGENERATIVE CHANGES. NO ACUTE BONY INJURY. Impression dictated by: Hoa Lockwood M.D. 07/15/2025 11:37 AM Dictation Location: [place] [address] Electronically authenticated by: [id number] Y Date: 07/15/2025 11:37
--- NOTE | 2025-07-15 11:30 | XR_ITS ---
The [address] [address] Patient Name: GÓMEZ CORTES MRN: [id number] date: 1955 Sex: M Assigned Patient Location: ED.MAIN Current Patient Location: ED.MAIN Accession/Order Number: [id number] Exam Date: 07/15/2025 11:20 Report Date: 07/15/2025 11:42 At the request of: ARMANDO DECKER DO Procedure: XR wrist RT 2V RIGHT WRIST - 2 views CLINICAL DATA: Patient fell a week ago. Right wrist pain. COMPARISON: None AP and lateral views were obtained. No acute fracture or dislocation is noted. Degenerative changes are seen at the distal radial ulnar and radiocarpal joints as well as the first carpal metacarpal joint. There is no focal soft tissue swelling. XR/XR wrist RT 2V IMPRESSION: DEGENERATIVE CHANGES. NO ACUTE BONY INJURY. Impression dictated by: Hoa Lockwood M.D. 07/15/2025 11:42 AM Dictation Location: [place] [address] Electronically authenticated by: [id number] Y Date: 07/15/2025 11:42
--- NOTE | 2025-07-15 11:54 | ED.GENADUL1 ---
HPI HPI - General Adult General Chief complaint: Neck Pain/Injury Stated complaint: fall Time Seen by Provider: 07/15/25 11:03 Source: patient Mode of arrival: ambulance Limitations: no limitations History of Present Illness HPI narrative: Patient is a 70-year-old male presenting to the emergency department via EMS for concerns of neck pain and right wrist pain. Patient states he tripped from a standing height 1 week ago. He states he landed on his right wrist and has been having neck pain ever since. He decided to wait until today as the pain was getting progressively worse. He denies any head trauma or loss of consciousness. He is not on blood thinners. Other than neck pain and right wrist pain, he denies any other injuries. He denies any numbness or tingling of the extremities. No weakness in his extremities. He denies any chest pain, shortness of breath, abdominal pain, nausea, or vomiting. He does have a history of C2/C7 spinal fusion many years ago. Related Data Home Medications ?Medication ?Instructions ?Recorded ?Confirmed atorvastatin 10 mg tablet 10 mg PO .hs 05/12/23 06/02/25 citalopram 40 mg tablet 40 mg PO DAILY 05/12/23 06/02/25 phenytoin sodium extended 100 mg 200 mg PO TID 05/12/23 06/02/25 capsule furosemide 40 mg tablet 40 mg PO DAILY PRN edema 05/24/24 06/02/25 nitroglycerin 0.3 mg sublingual 0.3 mg sublingual Q5M PRN chest 05/24/24 06/03/25 tablet pain psyllium husk 0.4 gram capsule 0.4 g PO DAILY 12/04/24 06/02/25 (Daily Fiber) aspirin 81 mg tablet,delayed 81 mg PO DAILY 01/09/25 06/02/25 release (Adult Low Dose Aspirin) albuterol sulfate 90 mcg/actuation 2 inh inhalation Q4H PRN shortness 02/21/25 06/02/25 aerosol inhaler of breath or wheezing fluticasone propionate 50 2 spray intranasal DAILY 02/21/25 06/02/25 mcg/actuation nasal spray,suspension metoprolol succinate 25 mg 25 mg PO DAILY 02/21/25 06/02/25 tablet,extended release 24 hr spironolactone 25 mg tablet 25 mg PO DAILY 02/21/25 06/02/25 phenobarbital 32.4 mg tablet 64.8 mg PO TID 03/24/25 06/02/25 triamcinolone acetonide 0.5 % 1 applic topical TID 03/24/25 06/02/25 topical cream meclizine 25 mg tablet 25 mg PO .Q8 06/02/25 06/03/25 omeprazole 40 mg capsule,delayed 40 mg PO DAILY 06/02/25 06/03/25 release umeclidinium 62.5 mcg/actuation 62.5 mcg inhalation Q24H 06/02/25 06/03/25 blister powder for inhalation (Incruse Ellipta) fluticasone 500 mcg-salmeterol 50 1 inh inhalation Q12H 06/03/25 06/03/25 mcg/dose blistr powdr for inhalation Previous Rx's ?Medication ?Instructions ?Recorded tiotropium bromide 18 mcg capsule 1 cap inhalation DAILY 30 days #30 03/27/25 with inhalation device (Spiriva caps with HandiHaler) benzonatate 100 mg capsule 100 mg PO Q6H PRN cough #20 caps 04/14/25 azithromycin 500 mg tablet 500 mg PO DAILY 3 days #3 tabs 06/07/25 (Zithromax) magnesium oxide 400 mg (241.3 mg 400 mg PO DAILY #60 tabs 06/07/25 magnesium) tablet oseltamivir 75 mg capsule 75 mg PO BID #6 caps 06/07/25 prednisone 10 mg tablet 10 mg PO .as directed #18 tabs 06/07/25 Allergies Allergy/AdvReac Type Severity Reaction Status Date / Time oxycodone (From OxyContin) Allergy Severe Anaphylaxis Verified 07/15/25 11:10 gabapentin Allergy Unknown Unknown Verified 07/15/25 11:10 Opioid HPI Opioid Management Most Recent Opioid Data: Last Pain Scale 4 Today, 11:14 Last Pain Intensity 0 03/08/25, 10:45 Last ORT Total Score 0 06/03/25, 01:35 Last ORT Risk Category Low Risk 06/03/25, 01:35 Review of Systems ROS Status of ROS 10 or more systems reviewed and unremarkable except as noted in history and below [facility] Medical History Right lower lobe pneumonia ?J18.9 - Pneumonia, unspecified organism (ICD-10) Essential (primary) hypertension ?I10 - Essential (primary) hypertension (ICD-10) Seizure disorder ?G40.909 - Epilepsy, unspecified, not intractable, without status epilepticus (ICD-10) CAD (coronary artery disease) ?I25.10 - Atherosclerotic heart disease of [place] coronary artery without angina pectoris (ICD-10) Cervical vertebral fusion ?M43.22 - Fusion of spine, cervical region (ICD-10) Lipoma of axilla ?D17.20 - Benign lipomatous neoplasm of skin and subcutaneous tissue of unspecified limb (ICD-10) Rupture, tendon, Achilles ?S86.019A - Strain of unspecified Achilles tendon, initial encounter (ICD-10) Syncope ?R55 - Syncope and collapse (ICD-10) Seizure ?R56.9 - Unspecified convulsions (ICD-10) Malignant neoplasm of mediastinum ?C38.3 - Malignant neoplasm of mediastinum, part unspecified (ICD-10) Depression ?F32.A - Depression, unspecified (ICD-10) Dyslipidemia ?E78.5 - Hyperlipidemia, unspecified (ICD-10) Deviated nasal septum ?J34.2 - Deviated nasal septum (ICD-10) Degenerative lumbar spinal stenosis ?M48.061 - Spinal stenosis, lumbar region without neurogenic claudication (ICD-10) 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 - Drug-induced polyneuropathy (ICD-10) ?T45.1X5A - Adverse effect of antineoplastic and immunosuppressive drugs, initial encounter (ICD-10) CAD, multiple vessel ?I25.10 - Atherosclerotic heart disease of [place] coronary artery without angina pectoris (ICD-10) 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 - Malignant neoplasm of mediastinum, part unspecified (ICD-10) Bladder cancer ?C67.9 - Malignant neoplasm of bladder, unspecified (ICD-10) HLD (hyperlipidemia) ?E78.5 - Hyperlipidemia, unspecified (ICD-10) Chest pain ?R07.9 - Chest pain, unspecified (ICD-10) Surgical History History of cataract surgery ?Z98.49 - Cataract extraction status, unspecified eye (ICD-10) History of foot surgery ?Z98.890 - Other specified postprocedural states (ICD-10) History of esophagogastroduodenoscopy (EGD) ?Z98.890 - Other specified postprocedural states (ICD-10) History of colonoscopy ?Z98.890 - Other specified postprocedural states (ICD-10) History of neck surgery ?Z98.890 - Other specified postprocedural states (ICD-10) H/O shoulder surgery ?Z98.890 - Other specified postprocedural states (ICD-10) History of cholecystectomy ?Z90.49 - Acquired absence of other specified parts of digestive tract (ICD-10) Family History Father Family history of myocardial infarction Sister Family history of cancer Other Family history of coronary artery disease Family history of diabetes mellitus Family history of gastric cancer Family history of heart disease Family history of hypertension Family history of kidney cancer Family history of stroke Social History Within the past year, how often did you have a drink containing alcohol: never Score interpretation: A score less than 4 is consistent with normal alcohol consumption. Smoking status: Former smoker Non-prescribed substance use: denies use Previous occupational history: retired Highest level of school completed/degree received: high school graduate Are you now , , , , never or living with a partner: In a typical week, how many times do you talk on the telephone with family, friends, or neighbors: 3 or more times per week How often do you get together with friends or relatives: 3 or more times per week Little interest or pleasure in doing things: not at all Feeling down, depressed, or hopeless: not at all Feel stressed/tense/nervous/anxious/difficulty sleeping: to some extent Life stressors: other Life stressor details: health Gender Identity: male Exam Narrative Exam Narrative: CONSTITUTIONAL: Well-appearing, answering questions and following commands appropriately SKIN: Was warm and dry, no abrasions or lacerations. EYES: Sclerae white. EARS, NOSE, THROAT: Moist oral mucosa. RESPIRATORY: Clear to auscultation bilaterally, no wheezes, crackles, or stridor, no use of accessory muscles CARDIOVASCULAR: Normal rate and regular rhythm. There is no S3, S4, murmur, rub. 2+ radial pulses bilaterally GASTROINTESTINAL: Abdomen is nondistended. MUSCULOSKELETAL: Patient is in a c-collar. Positive C-spine tenderness without step-offs or deformities. No T or L-spine tenderness. Mild tenderness palpation throughout the right proximal radius. No deformities. Full range of motion of the right wrist and fingers. NEUROLOGIC: Patient is awake and alert. Equal strength and sensation to light touch in the bilateral upper and lower extremities. Constitutional Vital Signs, click to edit/add: Last Vital Signs Temp 98.1 F 07/15/25 11:01 Pulse 68 07/15/25 11:01 Resp 20 07/15/25 11:01 BP 145/83 H 07/15/25 11:01 Pulse Ox 95 07/15/25 11:01 O2 Del Method Nasal Cannula 07/15/25 11:01 O2 Flow Rate 2 07/15/25 11:01 Course Vital Signs Vital signs: Vital Signs Temperature 98.1 F 07/15/25 11:01 Pulse Rate 68 07/15/25 11:01 Respiratory Rate 20 07/15/25 11:01 Blood Pressure 145/83 H 07/15/25 11:01 Pulse Oximetry 95 07/15/25 11:01 Oxygen Delivery Method Nasal Cannula 07/15/25 11:01 Oxygen Delivery Flow Rate 2 07/15/25 11:01 Temperature 98.1 F 07/15/25 11:01 Pulse Rate 68 07/15/25 11:01 Respiratory Rate 20 07/15/25 11:01 Blood Pressure 145/83 H 07/15/25 11:01 Pulse Oximetry 95 07/15/25 11:01 Oxygen Delivery Method Nasal Cannula 07/15/25 11:01 Oxygen Delivery Flow Rate 2 07/15/25 11:01 Medical Decision Making MDM Narrative Medical decision making narrative: Patient is a 70-year-old male presenting to the emergency department for evaluation of neck pain and right wrist pain s/p mechanical fall from a standing height 1 week ago. Vital signs are within normal limits. He is afebrile and hemodynamically stable. Examination as noted above. He has midline C-spine tenderness without neurologic deficits. Differential diagnosis includes vertebral fracture, or sprain/fracture, cervical muscle strain. He has no neurologic deficits to suggest severe spinal cord injury or central cord syndrome. CT C-spine without contrast and right wrist x-rays ordered. CT C-spine independently reviewed/interpreted by myself and reviewed by radiology demonstrated no acute osseous abnormalities. X-rays of the right wrist demonstrate no acute osseous abnormalities I do believe the patient is stable for discharge at this time. They were instructed to follow up with his PCP for further. Return precautions were given including any new or worsening symptoms. Patient understands and agrees to the plan. FINAL IMPRESSION: #Acute cervical muscle strain #Acute right wrist sprain DISPOSITION: Discharged home CONDITION: Good Medical Records Medical records reviewed: Yes I reviewed the patient's medical records Imaging Data ct c spine: Attestation: I personally reviewed and interpreted this imaging study as follows: Radiologist's impression: ITS Impressions Cervical Spine CT 07/15/25 11:22 IMPRESSION: SIMILAR POSTOPERATIVE AND DEGENERATIVE CHANGES. NO ACUTE BONY INJURY. Impression dictated by: Hoa Lockwood M.D. 07/15/2025 11:37 AM Dictation Location: [employer] Electronically authenticated by: [id number] Y Date: 07/15/2025 11:37 Wrist X-Ray 07/15/25 11:30 IMPRESSION: DEGENERATIVE CHANGES. NO ACUTE BONY INJURY. Impression dictated by: Hoa Lockwood M.D. 07/15/2025 11:42 AM Dictation Location: [employer] [facility] Electronically authenticated by: [id number] Y Date: 07/15/2025 11:42 Discharge Plan Discharge Chief Complaint: Neck Pain/Injury Clinical Impression: Contusion of neck Qualifiers: Encounter type: initial encounter Qualified Code(s): S10.93XA - Contusion of unspecified part of neck, initial encounter Patient Disposition: Home, Self-Care Time of Disposition Decision: 11:47 Condition: Good Mode of Transportation: Private Vehicle Prescriptions / Home Meds: No Action furosemide 40 mg tablet 40 mg PO DAILY PRN (Reason: edema) nitroglycerin 0.3 mg tablet, sublingual 0.3 mg sublingual Q5M PRN (Reason: chest pain) psyllium husk [Daily Fiber] 0.4 gram capsule 0.4 g PO DAILY aspirin [Adult Low Dose Aspirin] 81 mg tablet,delayed release (DR/EC) 81 mg PO DAILY triamcinolone acetonide 0.5 % cream 1 applic TOPICAL TID phenobarbital 32.4 mg tablet 64.8 mg PO TID tiotropium bromide [Spiriva with HandiHaler] 18 mcg capsule, w/inhalation device 1 cap inhalation DAILY 30 Days Qty: 30 0RF Rx Instructions: puncture 1 cap using device; one dose = 2 inhalations benzonatate 100 mg capsule 100 mg PO Q6H PRN (Reason: cough) Qty: 20 0RF omeprazole 40 mg capsule,delayed release(DR/EC) 40 mg PO DAILY meclizine 25 mg tablet 25 mg PO .Q8 Incruse Ellipta 62.5 mcg/actuation blister with device 62.5 mcg INHALATION Q24H fluticasone propion-salmeterol 500-50 mcg/dose blister with device 1 inh INHALATION Q12H prednisone 10 mg Tablet 10 mg PO .as directed Qty: 18 0RF Rx Instructions: Take 1 tablet 3 times a day for 3 days then 1 tablet twice a day for 3 days then 1 tablet daily magnesium oxide 400 mg (241.3 mg magnesium) Tablet 400 mg PO DAILY Qty: 60 0RF oseltamivir 75 mg Capsule 75 mg PO BID Qty: 6 0RF azithromycin [Zithromax] 500 mg tablet 500 mg PO DAILY 3 Days Qty: 3 0RF Rx Instructions: start on day 2 of therapy atorvastatin 10 mg tablet 10 mg PO .hs citalopram 40 mg tablet 40 mg PO DAILY phenytoin sodium extended 100 mg capsule 200 mg PO TID spironolactone 25 mg tablet 25 mg PO DAILY metoprolol succinate 25 mg tablet extended release 24 hr 25 mg PO DAILY albuterol sulfate 90 mcg/actuation HFA aerosol inhaler 2 inh INHALATION Q4H PRN (Reason: shortness of breath or wheezing) fluticasone propionate 50 mcg/actuation spray,suspension 2 spray INTRANASAL DAILY Print Language: [place] African Instructions: Acute Neck Pain (ED) Referrals: Jignesh Manjarrez MD [Primary Care Provider, Family Practice] - 1 week
== END 2025-07-15 11:54 | disposition home or self-care (01) ==
PROVIDERS: Emergency Provider Student in an Organized Health Care Education/Training Program; PCP Family Medicine
DX: S10.93XA Contusion of unspecified part of neck, initial encounter (principal); W01.0XXA Fall on same level from slipping, tripping and stumbling without subsequent striking against object, initial encounter; Z98.1 Arthrodesis status; S16.1XXA Strain of muscle, fascia and tendon at neck level, initial encounter; Z90.49 Acquired absence of other specified parts of digestive tract; S63.501A Unspecified sprain of right wrist, initial encounter; Z87.891 Personal history of nicotine dependence
CPT/HCPCS: 72125; 73100; 99284

== ENCOUNTER 2025-08-23 08:39 | Outpatient (OUT) | payer MEDICARE, MEDICAID, SELFPAY ==
--- OUTSIDE RECORDS SUMMARY | 2024-04-02 06:10 | XMS_ITS | Continuity of Care Document ---
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 Name Role Phone Alexander Mcgowan MD Unavailable Unavailable Allergies, Adverse Reactions, Alerts Substance Reaction Status Criticality lisinopril Active No Information Medications Medication Instructions Dosage Effective Dates (start - stop) Status Comments ezetimibe 10 mg tablet - Act gloria amlodipine 10 mg tablet - Ac tive azithromycin 250 mg tablet - Active benzonatate 200 mg capsule - Active tamsulosin 0.4 mg capsule - Active metformin 1,000 mg tablet - Active methocarbamol 500 mg tablet - Active losartan 100 mg-hydrochlorothiazide 25 mg tablet - Active mirtazapine 45 mg tablet - Active pantoprazole 40 mg tablet,delayed release - Active quetiapine 50 mg tablet - Ac tive rosuvastatin 20 mg tablet - Active timolol maleate 0.5 % eye drops INSTILL 1 DROP IN THE MORNING IN RIGHT EYE - Active mirtazapine 30 mg tablet - Active metformin 500 mg tablet - Ac tive metoprolol succinate ER 25 mg tablet,extended release 24 hr - Active Procedures Procedure Date Office/outpatient visit,est, min 2023 Office/outpatient visit,new, mod 2023 X-ray exam of wrist, complete Advance Directives Directive Yes / No Effective Date File Name No Information Encounters Encounter Description Practice Location Reason(s) For Visit Diagnoses Date Provider Providers Copied on Encounter Office[facility]pat ient visit[facility]est[facility] [address] [place], [address], [place] tel:[phone] OID [place] Left hand f/u (chief complaint) Primary osteoarthri tis, left wrist [address]lyn [address]. [address], [place], [place], [id number] , [place]. tel:[phone] Referring Provider: Jere [place] [place], [address] . [facility] [address] [place], [address], [place] tel:[phone] OID [place] LEFT HAND AND WRIST PAIN, SWELLING (chief complaint) Primary osteoarthri tis, left wrist Roslyn [address]oz. [address], [place], [place], [id number] , [place]. tel:[phone] Referring Provider: [place], [address] . Family History Family Member Type Diagnosis Age At Onset No Information Payers Payer name Insurance type Covered republican ID Authorciarana francisco javier(s) R - [id number] Social History Type Description Quantity Date Captured Comments Alcohol Use Details Unknown Caffeine Use Details Unknown Tobacco Use Status No Information Smoking Status No Information Sex Male Vital Signs Date / Time: Height Weight BMI Pulse Rate Blood Pressure Temperature Respiratory Rate Body Surface Area Head Circumference Head Circ. Percentile Wt./Jaciel. Percentile BMI percentile Pulse Ox Inhaled Ox 10:05 AM 79.379 kg (175.00 lbs) Chief Complaint And Reason For Visit From encounter dated '04/02/2024 10:10'. Left hand f/u (chief complaint) Reason For Referral Reason For Referral No Information History Of Present Illness Encounter Date Complaint History Of Prese nt Illness Left hand f/u LEFT HAND AND WRIST PAIN, SWELLI NG Functional Status Date Functional Assessmen t No Information Instructions Date Instruction Additional Infor mation No Information Assessments Type Assessment Date assessment Primary osteoarthritis, left wri st Patient Care Teams Name Effective Dates (start - stop) Status Members No Information
--- OUTSIDE RECORDS SUMMARY | 2025-08-23 08:43 | XMS_ITS | Encounter Summary ---
Author Organization [facility] Address [address] [place] [address] Care Team Providers Care Caustic Room Operator Name Role Phone Jignesh Manjarrez MD Primary Care Provider [phone] Jignesh Manjarrez MD Primary Care Provider Carlos Gonzáles LPN Unavailable Unavailable Encounter Details Date Type Department Care Team (Late st Contact Info) Description 04/12/2023 Abstract [facility] [address] [place] [address] Chari Mckinney, [facility] [address] [place] [address] Social History Tobacco Use Types Packs/Day Years Used Date Smoking Tobacco: Former Cigarettes Q uit: 04/18/1997 Tobacco Cessation:Counseling Given: Not Answered Alcohol Use [...] suspected to have Coronavirus/COVID-19? No / Unsure 04/13/2023 1:01 PM EDT documented as of this encounter Plan of Treatment Not on file documented as of this encounter Visit Diagnoses Not on filedocumented in this encounter Care Teams Caustic Room Operator Relationship Specialty Start Date End Date Jignesh Manjarrez MD PCP - General Cardiology 04/13/23 12/14/23 Jignesh Manjarrez MD PCP - General Family Medicine 12/15/23 Carlos Gonzáles LPN Licensed Practical Nurse Family Medicine 03/12/24 documented as of this encounter
--- OUTSIDE RECORDS SUMMARY | 2025-08-23 08:43 | XMS_ITS ---
Author Name Stormy RN, LANCE, Gerri dai Xiomara Address [address] [place] [address] Phone [phone] Organization [facility] Care Team Providers Care Copy Clerk Name Role Phone Sarah Burrows Unavailable [phone] Reason for Referral Not Available Allergies, adverse [...] 25 mg Tab TAKE 1 TABLET BY [facility] FOUR TIMES DAILY (IN THE MORNING, at [...] MOUTH EVERY MORNING 2025-01-13 No Data Available Albuterol Sulfate HFA 108 (9 0 Base) MCG/ACT Aerosol Solution INHALE 2 PUFFS BY MOUTH EVERY 4 HOURS NEEDED SHORTNESS OF BREATH 2025-01-21 No Data Available Spironolactone 25 mg Tab TAKE 1 TABLET B Y MOUTH DAILY 2025-02-20 No Data Available Triamcinolone Acetonide 0.5 % Crm apply topically THREE TIMES DAILY 2025-02-21 No Data Available predniSONE 10 mg Tab TAKE 1 TABLET BY MO UTH THREE TIMES DAILY FOR 3 DAYS then TAKE 1 TABLET BY MOUTH TWICE DAILY FOR 3 DAYS 2025-03-11 No Data Available Cefdinir 300 mg Cap TAKE 1 CAPSULE BY MO UTH TWICE DAILY 2025-03-11 No Data Available Benzonatate 100 mg Cap TAKE 1 CAPSULE BY MOUTH EVERY 6 HOURS NEEDED 2025-03-27 No Data Available Azithromycin 500 mg Tab TAKE 1 TABLET BY MOUTH EVERY DAY FOR 3 DAYS start on day 2 (TWO) OF therapy 2025-03-27 No Data Available Incruse Ellipta 62.5 MCG/ACT Aerosol Powder Breath Activated INHALE 1 PUFF BY MOUTH DAILY 2025-03-28 No Data Available Fluticasone-Salmeterol 500-5 0 MCG/ACT Aerosol Powder Breath Activated 1 puff Inhalation TWICE DAILY Rinse after use 2025-04-18 No Data Available Omeprazole 40 mg Cap delayed rel TAKE 1 CAPSULE BY MOUTH DAILY BEFORE A MEAL DO NOT CRUSH OR CHEW 2025-05-23 No Data Available Ciprofloxacin-dexAMETHasone 0.3-0.1 % Suspension instill FOUR drops IN BOTH EARS TWICE DAILY FOR 7 DAYS 2025-05-26 No Data Available Oseltamivir Phosphate 75 mg Cap TAKE 1 CAPSULE BY MOUTH TWICE DAILY 2025-06-07 No Data Available Magnesium Oxide -Mg Supplement 400 (240 mg) MG Tab TAKE 1 TABLET BY MOUTH EVERY DAY 2025-06-07 No Data Available Problem List Problem Status [...] Date of Service Diagnosis/Co mplaint [facility] [place], [place], [facility] 01/17/2025 Encntr for f/u exam aft trtm t for cond oth than malig neoplmUnstable angina [facility] [place] [place] 01/17/2025 Encntr for f/u exam aft trtm t for cond oth than malig neoplmUnstable angina [facility] [place] [place] 06/10/2025 Pneumonia, unspecified organismEncntr for f/u exam aft trtmt for cond oth than malig neoplm [facility] 7 [facility] [place] 06/10/2025 Pneumonia, unspecified organismEncntr for f/u exam aft trtmt for cond oth than malig neoplm [facility] 7 Day Disch [facility] [place], [facility] 06/10/2025 Pneumonia, unspecified organismEncntr for f/u exam aft trtmt for cond oth than malig neoplm Vital Signs Date of Collection Vitals 2025-06-10 08:45:05 Pain Scale - 0.0 {sc ore} Social History Sex Male History of Procedures Procedures Service Procedure code Service date Servicing provider Phone# Trans[facility] 7 Day Disch [id number] 2025-01-17 No Data Available No Data Avail able Medrec Completed within 30 Days of Discharge 1111F 2025-01-17 No Data Available No Data Availa ble [facility] 7 Day Disch [id number] 2025-06-10 No Data Available No Data Avail able Medrec Completed within 30 Days of Discharge 1111F 2025-06-10 No Data Available No Data Availa ble Pain Assessment - No Pain Documented [id number] 2025-06-10 No Data Available No Data Availa ble [...] pt to call to reach our staff. 2025-06-10 08:45:05 Pneumonia, unspecifi ed organismPt is doing much better and says that he will call to schedule a pulmonary appointment. He has an appt with his PCP on 06/18/25.RN follow up needs: n/a Plan of Care Not Available Goals Date [...] with their prescriber(s) for possible medication interactions. 2025-06-10 Provider recommendat ions and precautions reviewed with patient/caregiver. They have been advised to call the urgent care number provided for any concerning symptoms or signs that arise prior to 07/07/25. Patient/caregiver expressed understanding and agreement with the plan. Health Concerns Date Concern 2025-06-10 Plan name: [employer] Med icare Assure 1 (O D-SNP)[employer] Access Ends (30 days from dc date): 07/07/25Patient texting capabilities: Y 2025-06-10 Visit modality:Phone visit 2025-06-10 Transitions of Care Visit:The patient name and date of were confirmed.The patient/caregiver consented to a KENNETH/PD visit with Max. The patient was present at the time of the visit. Pt spoke with: Alcides Huttonent during call: n/aPatient s preferred language: Tajik Time spent with patient: 15 minutesHPI: Pt is a 70 yo M. Pt reports a history of angina, HTN, hyperlipidemia.Pt went in to the hospital due to difficulty breathing. He had a chest x-ray and was diagnosed with pneumonia in his lower right lobe. This felt worse than the last time he had pneumonia. He also had a COVID, RSV, and influenza test and was then diagnosed with influenza. He was treated with IV antibiotics for his pneumonia. He has completed his erythromycin and was prescribed magnesium and prednisone. He has a follow up with his PCP later this month and will also schedule with a new surtass analyst since his former one has moved. 2025-06-10 Type of Visit: Gerald westfall: [facility] Admit Date: 06/03/25Discharge Date: 06/07/25Discharge diagnosis: PNEUMONIA, UNSPECIFIED ORGANISM
--- OUTSIDE RECORDS SUMMARY | 2025-08-23 08:43 | XMS_ITS | Encounter Summary ---
Author Organization [facility] Address [address] [facility] [place] [address] Care Team Providers Care Food Quality Technician Name Role Phone Jignesh Manjarrez MD Primary Care Provider [phone] Carlos Gonzáles LPN Unavailable Unavailable Encounter Details Date Type Department Care Team (Late st Contact Info) Description 02/23/2024 Orders Only [facility] [address] [facility] [address] [place] [address] Dhaval Shahid MD [address] [id number] Social History Tobacco Use Types Packs/Day Years [...] any clubs o r organizations such as latter-day groups, unions, fraternal or athletic groups, or [...] Recorded Patient Health Questionnaire-2 Score 0 01/11/2024 [facility] - Occupational Stress Questionnaire Answer Date [...] place to sleep or slept in a long term (including now)? No 12/14/2023 Sex and Gender Information Value Date Recorded Sex Assigned at Not on file Legal Sex Male 11:16 PM EDT Gender Identity Not on file Sexual Orientation Not on file documented as of this encounter Plan of Treatment Not on file documented as of this encounter Procedures Procedure [...] documented as of this encounter Care Teams Food Quality Technician Relationship Specialty Start Date End Date Jignesh Manjarrez MD PCP - General Family Medicine 12/15/23 Carlos Gonzáles LPN Licensed Practical Nurse Family Medicine 03/12/24 documented as of this encounter
--- OUTSIDE RECORDS SUMMARY | 2025-08-23 08:43 | XMS_ITS | Encounter Summary ---
Author Organization [facility] Address [address] [place] [address] Care Team Providers Care Finish Specialist Name Role Phone Jignesh Manjarrez MD Primary Care Provider [phone] Encounter Details Date Type Department Care Team (Late st Contact Info) Description 05/15/2025 External Result Encounter [facility] [address] [place] [address] Jignesh Manjarrez MD [address] [place] [address] Social History Tobacco Use Types Packs/Day Years [...] Recorded Patient Health Questionnaire-2 Score 2 11/22/2024 [facility] - Occupational Stress [...] any time in the past 12 m [facility], were you homeless or [...] PM EDT THIS EXAM WAS PERFORMED AT [facility] History: Chronic dysphasia. Exam/Technique: Double contrast upper [...] - 05/16/2025 THIS EXAM WAS PERFORMED AT [facility] History: Chronic dysphasia. Exam/Technique: Double contrast upper [...] documented as of this encounter Care Teams Finish Specialist Relationship Specialty Start Date End Date Jignesh Manjarrez MD PCP - General Family Medicine 12/15/23 documented as of this encounter
--- OUTSIDE RECORDS SUMMARY | 2025-08-23 08:43 | XMS_ITS ---
Author Organization [facility] Address [address] [place] [address] Care Team Providers Care Instructor [employer] Name Role Phone Jignesh Manjarrez MD Primary Care Provider [phone] Active Problems Problem Noted Date Diagnosed Date Unstable angina 01/11/2025 Assessment & Plan (01/11/2025 2:16 AM EST): -Use nitroglycerin and nitrates -N.p.o. after midnight -Will need to proceed to have cath tomorrow -Consult cardiology. 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 -Patient's hydrocodone 5/325 as needed -Continue other home medications per reconciliation Maintain DVT prophylaxis DVT protocols GI protection Protonix Monitor labs and correct abnormalities Discussed the plan of care with patient's nurse and with the patient himself and he is in agreement. Polyneuropathy due to other toxic agents 024 Rheumatic fever 08/08/2024 Transient ischemic attack (TIA) 08/08/2024 Bilateral leg edema 02/21/2024 Overview (08/08/2024): Last Assessment & Plan: Edema stable with lasix and continue. Elevate legs PRN. Take potassium if taking lasix. KAROL (obstructive sleep apnea) 02/21/2024 Overview (08/08/2024): Last Assessment & Plan: Scheduled for titration study. Chest pain due to CAD 01/11/2024 Overview (08/08/2024): Last Assessment & Plan: Recent hospital admission for Chest pain. Negative cardiac enzymes. Remained CP during hospital stay. Has outpatient Lexiscan scheduled. On ASA, statin Called in [place] nitroglycerin as needed for CP. His symptoms started after he was prescribed Wellbutrin for depression and its very possible that his symptoms are due to Wellbutirn - patient asked to stop Wellbutrin. Hx of malignant neoplasm 01/05/2024 024 Lumbar degenerative disc disease 01/05/2024 01/05/2024 Encounter for long-term current use of medicatio n 11/29/2023 01/05/2024 Screening PSA (prostate specific antigen) 2023 Deviated nasal septum 10/26/2023 01/05/2024 Dyslipidemia 10/26/2023 01/05/2024 Assessment & Plan (01/11/2025 2:16 AM EST): -Continue statins. Major depressive disorder, recurrent episode, mi ld 10/26/2023 01/05/2024 Overview (01/05/2024): Last Assessment & Plan: Symptoms worse and add wellbutrin in addition to celexa. Seizure disorder 10/26/2023 01/05/2024 Assessment & Plan (01/11/2025 2:16 AM EST): -Seizures currently stable resume and reconcile home anticonvulsants Degenerative lumbar spinal stenosis 08/04/2023 01/05/2024 Overview (01/05/2024): Last Assessment & Plan: Pain and radicular symptoms getting worse causing weakness and falls. MRI May 2023 abnormal. [facility]. Continue PT exercises. Arthritis of right hip 08/16/2022 History of falling 08/16/2022 01/05/2024 Internal derangement of right knee 08/16/2022 01/05/2024 Obesity 01/12/2021 01/05/2024 Dyspnea on exertion 08/04/2020 01/05/2024 Coronary arteriosclerosis 07/21/20202023 Assessment & Plan (01/11/2025 2:16 AM EST): -Treat with statins -Manage also with nitrates -Aspirin -Consult cardiology and prep for heart cath later on today. History of colonic polyps 01/28/20202023 Hyperlipidemia 01/28/2020 01/05/2024 Neuropathy due to chemotherapeutic drug 01/28/2001/05/2024 Overview (01/05/2024): Last Assessment & Plan: Continued symptoms but tolerable with neurontin and continue. 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 Past Treatment and Therapy Plans No past plan information found. Lifetime Dose Tracking * Chemical Lifetime Dose Automatic Entry Manual Entr y Fluoro Time 2.9 minutes 0 minutes 2.9 minutes Air Kerma 567 mGy 0 mGy 567 mGy
--- OUTSIDE RECORDS SUMMARY | 2025-08-23 08:43 | XMS_ITS | Clinical Summary ---
Author Organization Prosetta tem Address [id number] [address] [place] [address] Care Team Providers Care Custom Harvester Name Role Phone Unavailable Primary Care Provider [...] a day. 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
--- OUTSIDE RECORDS SUMMARY | 2025-08-23 08:43 | XMS_ITS ---
Author Organization Nafham tem Address [id number] [address] [place] [address] Care Team Providers Care Watch Manufacturing Supervisor Name Role Phone Unavailable Primary Care Provider [...]
--- OUTSIDE RECORDS SUMMARY | 2025-08-23 08:43 | XMS_ITS | Encounter Summary ---
Author Organization [facility] Address [address] [place] [address] Care Team Providers Care Roll Mill Operator Name Role Phone Jignesh Manjarrez MD Primary Care Provider [phone] Carlos Gonzáles LPN Unavailable Unavailable Encounter Details Date Type Department Care Team (Late st Contact Info) Description 02/24/2024 Orders Only [facility] [address] [place] [address] Jignesh Manjarrez MD [address] [place] [id number] Social History Tobacco Use Types Packs/Day Years [...] How often do you attend chur or evangelical services? More than 4 times per year 12/14/2023 Do you belong to any clubs o r organizations such as scientology groups, unions, fraternal or athletic groups, or [...] documented as of this encounter Care Teams Roll Mill Operator Relationship Specialty Start Date End Date Jignesh Manjarrez MD PCP - General Family Medicine 12/15/23 Carlos Gonzáles LPN Licensed Practical Nurse Family Medicine 03/12/24 documented as of this encounter
--- OUTSIDE RECORDS SUMMARY | 2025-08-23 08:43 | XMS_ITS | Clinical Summary ---
Author Organization [facility] Address [address] [place] [address] Care Team Providers Care Photography Editor Name Role Phone Jignesh Manjarrez MD Primary Care Provider [phone] Allergies Active Allergy Reactions Criticality Noted Date Comments Gabapentin Unknown 01/29/2020 Oxycodone Angioedema,Unknown Medium 01/29/2020 Phenytoin Unknown 05/20/2023 Medications aspirin 81 MG EC tablet Take 1 tablet by mouth in the morning. Active nitroglycerin (Nitrostat) 0.3 MG SL tabletIndications: Coronary arteriosclerosis,C hest pain due to CAD Place 1 tablet (0.3 mg) under the tongue every 5 (five) minutes if needed for chest pain 30 tablet 01/11/20 24 Active albuterol HFA 90 mcg/act inhalerIndications :SOB (shortness of breath) on exertion Inhale 2 puffs every 4 (four) hours if needed for shortness of breath or wheezing 18 g 2 01/22/20 25 Active citalopram (CeleXA) 40 MG tabletIndications: Major depressive disorder, recurrent episode, mild TAKE 1 TABLET BY MOUTH IN THE MORNING 30 tablet 5 02/12/20 25 Active phenytoin ER (Dilantin) 100 MG capsuleIndications :Seizure disorder (HCC) TAKE 2 CAPSULES BY MOUTH IN THE MORNING, then TAKE 2 CAPSULES BY MOUTH IN THE EVENING and then TAKE 2 CAPSULES BY MOUTH BEFORE bedtime 1080 capsule 2 02/19/20 25 026 Active metoprolol succinate XL (Toprol-XL) 25 MG 24 hr tablet Take 25 mg by mouth Daily 02/21/20 25 Active fluticasone (Flonase) 50 MCG/ACT nasal sprayIndications:Kiara hronic rhinosinusitis INSERT 2 (TWO) sprays in EACH nostril ONCE DAILY; Before first use, prime pump; After use, clean tip and replace cap 16 g 2 03/04/20 25 Active albuterol (2.5 MG/3ML) 0.083% nebulizer solutionIndication s:Chronic obstructive pulmonary disease, unspecified COPD type (HCC) Take 3 mL (2.5 mg) by nebulization every 4 (four) hours if needed for wheezing or shortness of breath 150 mL 2 03/25/20 25 Active Umeclidinium Swengel (Incruse Ellipta) 62.5 MCG/ACT aerosol powderIndications: Chronic obstructive pulmonary disease, unspecified COPD type (HCC) Inhale 1 puff Daily 30 each 5 03/28/20 25 Active furosemide (Lasix) 40 MG tabletIndications: Bilateral leg edema TAKE 1 TABLET BY MOUTH DAILY NEEDED 30 tablet 3 05/01/20 25 Active meclizine (Antivert) 25 MG tabletIndications: Dizziness TAKE 1 TABLET BY MOUTH FOUR TIMES DAILY (IN THE MORNING, at noon, IN THE EVENING and BEFORE bedtime) 30 tablet 3 05/14/20 25 Active atorvastatin (Lipitor) 10 MG tabletIndications: Dyslipidemia Take 1 tablet (10 mg) by mouth at bedtime 100 tablet 3 05/14/20 25 026 Active spironolactone (Aldactone) 25 MG tabletIndications: Bilateral leg edema TAKE 1 TABLET BY MOUTH DAILY 30 tablet 3 05/21/20 25 Active Fluticasone-Salmet mati (Advair Diskus) 500-50 MCG/ACT aerosol powderIndications: Chronic obstructive pulmonary disease, unspecified COPD type (HCC) Inhale 1 puff every 12 (twelve) hours 05/23/20 25 Active omeprazole (PriLOSEC) [address] capsuleIndications :Hiatal hernia with GERD without esophagitis Take 1 capsule (40 mg) by mouth Daily before meals Do not crush or chew. 30 capsule 5 05/23/20 25 Active PHENobarbital (Luminal) 32.4 MG tabletIndications: Seizure disorder (HCC) TAKE 2 TABLETS BY MOUTH THREE TIMES DAILY 180 tablet 5 06/18/20 25 Active triamcinolone (Kenalog) 0.5 % creamIndications:D yshidrotic eczema Apply topically in the morning and in the evening and before bedtime. 60 g 2 06/25/20 25 Active methocarbamol (Robaxin) 750 MG tabletIndications: Chronic pain of right knee Take 1 tablet (750 mg) by mouth 4 (four) times a day as needed for muscle spasms 60 tablet 3 07/16/20 25 Active Active Problems Problem Noted Date Diagnosed Date Influenza A 06/25/2025 Assessment & Plan (06/25/2025 5:58 PM EDT): Recent infection and improved. Monitor. Pneumonia 06/25/2025 Assessment & Plan (06/25/2025 5:59 PM EDT): Recent infection and improved. Monitor. Hiatal hernia with GERD without esophagitis 04/2025 Assessment & Plan (05/23/2025 2:35 PM EDT): UGI with reflux and start omeprazole. Assessment & Plan (04/26/2025 12:38 PM EDT): Problems swallowing and check UGI. Chronic hypoxic respiratory failure 04/02/2025 Assessment & Plan (06/25/2025 5:57 PM EDT): Stable on home oxygen. Assessment & Plan (05/23/2025 2:34 PM EDT): [...] obstructive pulmonary disease) 01/2025 Assessment & Plan (06/25/2025 5:58 PM EDT): Symptoms stable and use inhalers daily. Follow with pulmonology. Assessment & Plan (05/23/2025 2:35 PM EDT): [...] falls. MRI May 2023 abnormal. Refer to [facility] for second opinion. Continue PT exercises. Assessment & Plan (11/29/2023 1:56 PM EST): Pain unchanged and continue PT exercises. Use OTC PRN. Class 3 severe obesity due t o excess calories with serious comorbidity and body mass index (BMI) of 40.0 to 44.9 in adult 01/12/2021 Assessment & Plan (11/22/2024 4:22 PM EST): Weight loss indicated. Coronary artery disease invo lving ekuk coronary artery of ekuk heart without angina pectoris 07/21/2020 Assessment & Plan (01/21/2025 2:20 PM EST): Symptoms improved with medication change and follow with cardiology. Assessment & Plan (01/11/2024 3:00 PM EST): Non obs CAD based on LHC Performed in 2008. Recent hospital admission for [...] follow up after recent hospital admission at [facility] Reviewed hospital records. Answered patient's questions [...] Encounters Date Type Department Care Team Description 07/16/[address] [place] [facility] [address] [place] [address] Jignesh Manjarrez MD Chronic pain of right knee; Degenerative lumbar spinal stenosis 07/03/2025 3:45 PM EDT Clinical Support [facility] [address] [place] [address] Chari Mckinney CCC-A Sensorineural hearing loss, bilateral (Primary Dx) 07/03/2025 Bamboo flowsheet [facility] [place] [facility] [address] [place] [address] Chari Mckinney CCC-A 06/25/2025 3:15 PM EDT Office Visit [facility] [place] [facility] [address] [place] [address] Jignesh Manjarrez MD Pneumonia due to infectious organism, unspecified laterality, unspecified part of lung (Primary Dx); Influenza A; Chronic obstructive pulmonary disease with acute exacerbation (HCC); Chronic hypoxic respiratory failure (HCC) 06/25/[address] [place] [facility] [address] [place] [address] Jignesh Manjarrez MD Dyshidrotic eczema 06/17/[address] [place] [facility] [address] [place] [address] Jignesh Manjarrez MD Seizure disorder (HCC) 06/04/2025 Orders Only [facility] [address] [place] [address] Quang Munoz MD 06/02/2025 Clinisync Result Encounter N[facility] External Department Unsolicited Provider, Generic External Data 05/23/2025 1:45 PM EDT Office Visit [facility] [address] [place] [address] Jignesh Manjarrez MD Benign essential hypertension (Primary Dx); Chronic obstructive pulmonary disease, unspecified COPD type (HCC); Chronic hypoxic respiratory failure (HCC); Major depressive disorder, recurrent episode, mild ; Degenerative lumbar spinal stenosis; Bilateral leg edema; Deviated nasal septum; Hiatal hernia with GERD without esophagitis; Neuropathy due to chemotherapeutic drug (HCC) 05/23/2025 Bamboo flowsheet [facility] [address] [place] [address] Jignesh Manjarrez MD from Last 3 Months Immunizations Immunization Administration [...] Catina Heart disease Mother Catina Cancer Sister Anncatina Diabetes Sister Anncatina Relation Name Status Comments Father Nazario Mother Catina Sister Anncatina Social History Tobacco Use Types Packs/Day Years [...] How often do you attend chur or adventism services? More than 4 times per year 01/15/2025 Do you belong to any clubs o r organizations such as zoroastrianism groups, unions, fraternal or athletic groups, or [...] Recorded Patient Health Questionnaire-2 Score 2 11/22/2024 [facility] of Occupat ional [facility] - Occupational Stress Questionnaire Answer Date [...] place to sleep or slept in a chcf (including now)? No 12/14/2023 Housing Stability Vital Sign Answer Trent e Recorded In the last 12 months, was t here a time when you were not able to pay the mortgage or rent on time? No 01/15/2025 Number of Times Moved in the Last Year Not on fi le 01/15/2025 At any time in the past 12 m [facility], were you homeless or living in a chcf (including now)? No 01/15/2025 Sex and Gender Information Value Date Recorded Sex Assigned at Not on file Legal Sex Male 11:16 PM EDT Gender Identity Not on file Sexual Orientation Not on file Last Filed Vital Signs Vital Sign Reading Time Taken Comments Blood Pressure 130/70 06/25/2025 3:52 PM EDT Pulse 75 06/25/2025 3:52 PM EDT Temperature 35.9 C (96.6 F) 06/25/2025 3:52 PM EDT Respiratory Rate 22 06/25/2025 3:52 PM EDT Oxygen Saturation 97% 06/25/2025 3:52 PM EDT Inhaled Oxygen Concentration - - Weight 144 kg (317 lb) 06/25/2025 3:52 PM EDT Height 185.4 cm (6' 1 ) 06/25/2025 3:52 PM EDT Body Mass Index 41.82 06/25/2025 3:52 PM EDT Plan of Treatment Health Maintenance Due Date Last Done Comments CT Colonography 1955 FIT-DNA 1955 FIT 1955 FOBT 1955 Sigmoidoscopy 1955 Pneumococcal Vaccine: 65+ Ye ars (2 of 2 - PCV) 08/05/2021 08/05/2020 Influenza Vaccine (#1) 2025 4, 11/04/2023, 08/21/2022, Additional history exists Colonoscopy 12/11/2034 12/11/2024, 11/22, 12/11/2024 Colorectal Cancer Screening 12/11/2034 Procedures Procedure Name Priority Date/Time Associated Diagnosis Comments CT CHEST W [id number] %27 Routine 06/04/2025 9:16 AM EDT BLOOD CULTURE 2 Routine 06/02/2025 10:15 PM EDT BLOOD CULTURE 1 Routine 06/02/2025 9:52 PM EDT COLONOSCOPY Routine 12/11/2024 10:20 AM EST from Last 3 Months or Most Recently Relevant to Health Maintenance Results * CT CHEST W [id number] %27 (06/04/2025 9:16 AM EDT) Anatomical Region Laterality Modality Radiographic Kizzy ging Quang Munoz MD IMG XR PROCEDURES Final Result * BLOOD CULTURE 2 (06/02/2025 10:15 PM EDT) BLOOD CULTURE 2 Blood Culture 2 NG5D NO GROWTH AT 5 DAYS.^NO GROWTH AT 5 DAYS. [facility] 06/02/2025 10:1 5 PM EDT 06/02/2025 10:24 PM EDT Narrative [facility] - 06/08/2025 3:29 PM EDT Generic External Data Provider LAB BLOOD ORDERAB LES Final Result Performing Organization Address City/[facility]/ZIP Co de Phone Number [facility] * BLOOD CULTURE 1 (06/02/2025 9:52 PM EDT) BLOOD CULTURE 1 Blood Culture 1 NG5D NO GROWTH AT 5 DAYS.^NO GROWTH AT 5 DAYS. [facility] 06/02/2025 9:52 PM EDT 06/02/2025 10:13 PM EDT Narrative [facility] - 06/08/2025 3:30 PM EDT Generic External Data Provider LAB BLOOD ORDERAB LES Final Result Performing Organization Address [facility] Co de Phone Number [facility] * Colonoscopy (12/11/2024 10:20 AM EST) Anatomical Region Laterality Modality Endoscopy Esteban Sprague DO ENDOSCOPY PROCEDURE ORDERABLES F inal Result from Last 3 Months or Most Recently Relevant to Health Maintenance Insurance AETNA MEDICARE ADVANTAGE MEDICAID [place] Care Teams Photography Editor Relationship Specialty Start Date End Date Jignesh Manjarrez MD PCP - General Family Medicine 12/15/23
--- OUTSIDE RECORDS SUMMARY | 2025-08-23 08:43 | XMS_ITS | Encounter Summary ---
Author Organization [facility] Address [address] [place] [address] Care Team Providers Care Claims Representative Name Role Phone Jignesh Manjarrez MD Primary Care Provider [phone] Carlos Gonzáles LPN Unavailable Unavailable Encounter Details Date Type Department Care Team (Late st Contact Info) Description 02/20/2024 Orders Only [facility] [address] [place] [address] Jignesh Manjarrez MD [address] [place] [address] Social History Tobacco Use Types Packs/Day Years [...] any clubs o r organizations such as spiritism groups, unions, fraternal or athletic groups, or [...] Recorded Patient Health Questionnaire-2 Score 0 01/11/2024 [facility] of Occupat ional Health - Occupational [...] Abdomen Computed T omography Jignesh Manjarrez MD IMG CT PROCEDURES Final Result documented in this encounter Visit Diagnoses Not on filedocumented in this encounter Additional Health Concerns Assessment Noted Time PHQ-9 Depression Total Score: 8 11/29/19 1:28 PM EST documented as of this encounter Care Teams Claims Representative Relationship Specialty Start Date End Date Jignesh Manjarrez MD PCP - General Family Medicine 12/15/23 Carlos Gonzáles LPN Licensed Practical Nurse Family Medicine 03/12/24 documented as of this encounter
--- OUTSIDE RECORDS SUMMARY | 2025-08-23 08:43 | XMS_ITS | Encounter Summary ---
Author Organization [facility] Address [address] [place] [address] Care Team Providers Care Wrapper Layer Name Role Phone Jignesh Manjarrez MD Primary Care Provider [phone] Encounter Details Date Type Department Care Team (Late st Contact Info) Description 05/21/2025 Abstract [facility] [address] [place] [address] Jignesh Manjarrez MD [address] [facility] [place] [address] Social History Tobacco Use Types Packs/Day Years [...] How often do you attend chur or hindu services? More than 4 times per year 01/15/2025 Do you belong to any clubs o r organizations such as sabianism groups, unions, fraternal or athletic groups, or [...] Recorded Patient Health Questionnaire-2 Score 2 11/22/2024 [facility] of Occupat ional Health - Occupational Stress [...] place to sleep or slept in a skilled nursing (including now)? No 12/14/2023 Housing Stability Vital Sign Answer Trent e Recorded In the last 12 months, was t here a time when you were not able to pay the mortgage or rent on time? No 01/15/2025 Number of Times Moved in the Last Year Not on fi le 01/15/2025 At any time in the past 12 m [facility], were you homeless or living in a skilled nursing (including now)? No 01/15/2025 Sex and Gender [...] documented as of this encounter Care Teams Wrapper Layer Relationship Specialty Start Date End Date Jignesh Manjarrez MD PCP - General Family Medicine 12/15/23 documented as of this encounter
--- OUTSIDE RECORDS SUMMARY | 2025-08-23 08:43 | XMS_ITS | Encounter Summary ---
Author Organization [facility] Address [address] [place] [address] Care Team Providers Care Internal Controls Analyst Name Role Phone Jignesh Manjarrez MD Primary Care Provider [phone] Carlos Gonzáles LPN Unavailable Unavailable Encounter Details Date Type Department Care Team (Late st Contact Info) Description 02/21/2024 Orders Only [facility] [address] [place] [address] Jignesh Manjarrez MD [address] [facility] [place] [address] Social History Tobacco Use Types Packs/Day Years [...] How often do you attend chur or sikh services? More than 4 times per year 12/14/2023 Do you belong to any clubs o r organizations such as taoism groups, unions, fraternal or athletic groups, or [...] Recorded Patient Health Questionnaire-2 Score 0 01/11/2024 [facility] of Occupat ional Health - Occupational Stress [...] Laterality Modality Body, Chest Computed Tomogra phy us Jignesh Manjarrez MD IMG CT PROCEDURES Final Result * XR shoulder 2+ views right (02/19/2024 12:35 PM EDT) Anatomical Region Laterality Modality Upper Extremities, Shoulder Right Radi ographic Imaging Jignesh GUAMAN XR PROCEDURES Final Result documented in this encounter Visit Diagnoses Not on filedocumented in this encounter Additional Health Concerns Assessment Noted Time PHQ-9 Depression Total Score: 8 11/29/19 24 1:28 PM EST documented as of this encounter Care Teams Internal Controls Analyst Relationship Specialty Start Date End Date Jignesh Manjarrez MD PCP - General Family Medicine 12/15/23 Carlos Gonzáles LPN Licensed Practical Nurse Family Medicine 03/12/24 documented as of this encounter
--- OUTSIDE RECORDS SUMMARY | 2025-08-23 08:44 | XMS_ITS | Encounter Summary ---
Author Organization [facility] Address [address] [place] [address] Care Team Providers Care Automotive Repair Technician Name Role Phone Jignesh Manjarrez MD Primary Care Provider [phone] Encounter Details Date Type Department Care Team (Late st Contact Info) Description 01/11/2025 Orders Only [facility] [address] [place] [address] Jignesh Manjarrez MD [address] [place] [address] Social History Tobacco Use Types Packs/Day Years [...] How often do you attend chur or confucianist services? More than 4 times per year 01/15/2025 Do you belong to any clubs o r organizations such as worship groups, unions, fraternal or athletic groups, or [...] Recorded Patient Health Questionnaire-2 Score 2 11/22/2024 [facility] of Occupat ional Health - Occupational Stress [...] documented as of this encounter Care Teams Automotive Repair Technician Relationship Specialty Start Date End Date Jignesh Manjarrez MD PCP - General Family Medicine 12/15/23 documented as of this encounter
--- OUTSIDE RECORDS SUMMARY | 2025-08-23 08:44 | XMS_ITS | Encounter Summary ---
Author Organization [facility] Address [address] [place] [address] Care Team Providers Care Lithographing Machine Operator Name Role Phone Jignesh Manjarrez MD Primary Care Provider [phone] Encounter Details Date Type Department Care Team (Late st Contact Info) Description 04/23/2025 Abstract [facility] [address] [place] [address] Jignesh Manjarrez MD [address] [place] [address] Social History Tobacco Use Types Packs/Day Years [...] How often do you attend chur or yazidi services? More than 4 times per year [...] Recorded Patient Health Questionnaire-2 Score 2 11/22/2024 [facility] [place] of Occupat ional Health - Occupational Stress [...] in the past [address] [facility], were you homeless or living in a [...] documented as of this encounter Care Teams Lithographing Machine Operator Relationship Specialty Start Date End Date Jignesh Manjarrez MD PCP - General Family Medicine 12/15/23 documented as of this encounter
--- OUTSIDE RECORDS SUMMARY | 2025-08-23 08:44 | XMS_ITS | Encounter Summary ---
Author Organization [facility] Address [address] [place] [address] Care Team Providers Care Mixer Foam Rubber Name Role Phone Adalid Gonsalez MD Primary Care Provider [phone] Encounter Details Date Type Department Care Team (Late st Contact Info) Description 11/27/2024 Clinisync Result Encounter [facility] External Department Unsolicited Adalid Gonsalez MD [address] [place] [address] Social History Tobacco Use Types Packs/Day Years [...] often do you attend chur ch or gnosticist services? More than 4 times [...] Recorded Patient Health Questionnaire-2 Score 2 11/[facility] Questionnaire Answer Date [...] in a alf (including now)? No 12/14/2023 Sex and Gender [...] EST Narrative 11/27/2024 4:06 [place] [address] [place] Scan Report Signed Patient: NAZARIO CORTES MR#: [id number] : 1955 Acct:[id number] Age/Sex: 69 / M ADM Date: 11/27/24 Loc: MRI Attending Dr: Adalid Gonsalez M.D. Ordering Physician: Adalid Gonsalez M.D. Date of Service: 11/27/24 Procedure(s): CT sinus wo con Accession Number(s): [id number] cc: Adalid Gonsalez M.D. The [place] [id number] Patient Name: NAZARIO CORTES MRN: [facility]:[id number] date: 1955 Sex: M Assigned Patient Location: MRI Current Patient Location: MRI Accession/Order Number: [id number] Exam Date: 11/27/2024 12:37 Report Date: 11/27/2024 [...] normal. Prior cataract surgery. Nasopharynx is normal. Industrial Custodian spaces are normal. CT/CT sinus wo con IMPRESSION: 1. The nasal septum deviates to the right by 5 mm. 2. The paranasal sinuses are clear. Electronically authenticated by: JOSE SALDAÑA Date: 11/27/2024 16:03 Dictated By: Jose Saldaña M.D. Signed By: 11/27/24 1606 DD/ 1603 TD/TT: Nurse Obgyn: Procedure Note Radiology, Radiologist, MD - 11/27/2024 [place] [address] CT Scan Report Signed Patient: NAZARIO CORTES EMR#: [id number] : 5Acct:[id number] Age/Sex: 69 / MADM Date: 11/27/24 Loc: MRI Attending Dr: Adalid Gonsalez M.D. Ordering Physician: Adalid Gonsalez M.D. Date of Service: 11/27/24 Procedure(s): CT sinus wo con Accession Number(s): [id number] cc: Adalid Gonsalez M.D. [address] [address] Patient Name: NAZARIO CORTES MRN: [id number] date: 1955 Sex: M Assigned Patient Location: MRI Current Patient Location: MRI Accession/Order Number: [id number] Exam Date: 11/27/2024 12:37 Report Date: 11/27/2024 [...] normal. Prior cataract surgery. Nasopharynx is normal. Industrial Custodian spaces are normal. CT/CT sinus wo con IMPRESSION: 1. The nasal septum deviates to the right by 5 mm. 2. The paranasal sinuses are clear. Electronically authenticated by: JOSE SALDAÑA Date: 11/27/2024 16:03 Dictated By: Jose Saldaña M.D. Signed By:11/27/24 1606 DD/ 1603 TD/TT: Nurse Obgyn: us Adalid Gonsalez MD [facility] Final Result documented in this encounter Visit Diagnoses Not on filedocumented in this encounter Additional Health Concerns Assessment Noted Time PHQ-9 Depression Total Score: 5 11/22/19 25 3:00 PM EST documented as of this encounter Care Teams Mixer Foam Rubber Relationship Specialty Start Date End Date Adalid Gonsalez MD PCP - General Family Medicine 12/15/23 documented as of this encounter
--- OUTSIDE RECORDS SUMMARY | 2025-08-23 08:44 | XMS_ITS | Encounter Summary ---
Author Organization [facility] Address [address] [place] [address] Care Team Providers Care Nuclear Test Technician Name Role Phone Jignesh Manjarrez MD Primary Care Provider [phone] Encounter Details Date Type Department Care Team (Late st Contact Info) Description 02/28/2025 Orders Only [facility] [address] [place] [address] Jignesh Manjarrez MD [address] [place] [address] Social History Tobacco Use Types Packs/Day Years [...] How often do you attend chur or confucianism services? More than 4 times per year 01/15/2025 Do you belong to any clubs o r organizations such as restorationism groups, unions, fraternal or athletic groups, or [...] Recorded Patient Health Questionnaire-2 Score 2 11/22/2024 [facility] [place] of Occupat ional Health - Occupational Stress [...] in a half-way (including now)? No 12/14/2023 Housing Stability Vital Sign Answer Trent e Recorded In the last 12 months, was t here a time when you were not able to pay the mortgage or rent on time? No 01/15/2025 Number of Times Moved in the Last Year Not on fi le 01/15/2025 At any time in the past 12 m [facility], were you homeless or living in a half-way (including now)? No 01/15/2025 Sex and Gender [...] documented as of this encounter Care Teams Nuclear Test Technician Relationship Specialty Start Date End Date Jignesh Manjarrez MD PCP - General Family Medicine 12/15/23 documented as of this encounter
--- OUTSIDE RECORDS SUMMARY | 2025-08-23 08:44 | XMS_ITS | Encounter Summary ---
Author Organization [employer] Address [id number] [address] [place] [address] Care Team Providers Care Wiring Inspector Name Role Phone Jose Marie DO Primary Care Provider [phone] Reason for Visit * Reason Comments Med Refill Encounter Details Date Type Department Care Team (Late st Contact Info) Description 01/04/2023 Refill [facility] - Family Medicine [address] [place] [address] Jose Marie DO [address], [facility] [place] [address] Social History Tobacco Use Types Packs/Day Years [...] on filedocumented in this encounter Care Teams Wiring Inspector Relationship Specialty Start Date End Date Jose Marie DO [address], [place] [address] PCP - General Family Medicine 11/17/23 06/11/24 documented as of this encounter
--- OUTSIDE RECORDS SUMMARY | 2025-08-23 08:44 | XMS_ITS | Encounter Summary ---
Author Organization [employer] Address [id number] [address] [place] [address] Care Team Providers Care Mold Filler And Drainer Name Role Phone Jose Marie DO Primary Care Provider Reason for Visit * Reason Comments Med Refill Encounter Details Date Type Department Care Team (Late st Contact Info) Description 09/01/2022 Refill [facility] - Family Medicine [address] [place] [address] Jose Marie DO [address], [place] [address] Seizure ([facility]) (Primary Dx) Social History Tobacco Use Types [...] convulsions documented in this encounter Care Teams Mold Filler And Drainer Relationship Specialty Start Date End Date Jose Marie DO [address] [facility], [place] [address] PCP - General Family Medicine 11/17/23 06/11/24 documented as of this encounter
--- OUTSIDE RECORDS SUMMARY | 2025-08-23 08:44 | XMS_ITS | Encounter Summary ---
Author Organization [employer] Address [id number] [address] [place] [address] Care Team Providers Care Net Mvc Developer Name Role Phone Jose Marie DO Primary Care Provider Reason for Visit * Reason Comments Med Refill Encounter Details Date Type Department Care Team (Late st Contact Info) Description 12/18/2022 Refill [facility] - Family Medicine [address] [place] [address] Jose Marie DO [address], [facility] [place] [address] Social History Tobacco Use Types Packs/Day Years [...] on filedocumented in this encounter Care Teams Net Mvc Developer Relationship Specialty Start Date End Date Jose Marie DO [address], [facility] [place] [address] PCP - General Family Medicine 11/17/23 06/11/24 documented as of this encounter
--- OUTSIDE RECORDS SUMMARY | 2025-08-23 08:44 | XMS_ITS | Encounter Summary ---
Author Organization [employer] Address [id number] [address] [place] [address] Care Team Providers Care Anhydrous Ammonia Production Supervisor Name Role Phone Jose Marie DO Primary Care Provider [phone] Reason for Visit * Reason Comments Med Refill Encounter Details Date Type Department Care Team (Late st Contact Info) Description 12/28/2022 Refill [facility] - Family Medicine [address] [place] [address] Jose Marie DO [address], [facility] [place] [address] Social History Tobacco Use Types Packs/Day Years [...] on filedocumented in this encounter Care Teams Anhydrous Ammonia Production Supervisor Relationship Specialty Start Date End Date Jose Marie DO [address], [place] [address] PCP - General Family Medicine 11/17/23 06/11/24 documented as of this encounter
--- OUTSIDE RECORDS SUMMARY | 2025-08-23 08:44 | XMS_ITS | Encounter Summary ---
Author Organization [facility] Address [address] [place] [address] Care Team Providers Care Group Product Manager Name Role Phone Adalid Gonsalez MD Primary Care Provider [phone] Encounter Details Date Type Department Care Team (Late st Contact Info) Description 11/27/2024 Clinisync Result Encounter [facility] External Department Unsolicited Adalid Gonsalez MD [address] [place] [address] Social History Tobacco Use Types Packs/Day Years [...] often do you attend chur ch or denominational services? More than 4 times per year 12/14/2023 Do you belong to any clubs o r organizations such as roman catholic groups, unions, fraternal or athletic groups, or [...] Recorded Patient Health Questionnaire-2 Score 2 11/22/2024 [facility] Questionnaire Answer [...] in a detention (including now)? No 12/14/2023 Sex and Gender [...] EST Narrative 11/27/2024 2:25 [place] [address] Magnetic Resonance Report Signed Patient: NAZARIO CORTES MR#: [id number] : 1955 Acct:[id number] Age/Sex: 69 / M ADM Date: 11/27/24 Loc: MRI Attending Dr: Adalid Gonsalez M.D. Ordering Physician: Adalid Gonsalez M.D. Date of Service: 11/27/24 Procedure(s): MR knee RT wo con Accession Number(s): [id number] cc: Adalid Gonsalez M.D. [address] [address] Patient Name: NAZARIO CORTES MRN: [id number] date: 1955 Sex: M Assigned Patient Location: MRI Current Patient Location: MRI Accession/Order Number: [id number] Exam Date: 11/27/2024 13:00 Report Date: 11/27/2024 [...] chondrosis. 4. Trace effusion Electronically authenticated by: KATHARINE DORMAN Date: 11/27/2024 14:23 Dictated By: Katharine Dorman M.D. Signed By: 11/27/24 1420 DD/ 1423 TD/TT: Corporate Giving Manager: Procedure Note Radiology, Radiologist, MD - 11/27/[address] [address] Magnetic Resonance Report Signed Patient: NAZARIO CORTES EMR#: [id number] : 5Acct:[id number] Age/Sex: 69 / MADM Date: 11/27/24 Loc: MRI Attending Dr: Adalid Gonsalez M.D. Ordering Physician: Adalid Gonsalez M.D. Date of Service: 11/27/24 Procedure(s): MR knee RT wo con Accession Number(s): [id number] cc: Adalid Gonsalez M.D. The [address] [address] Patient Name: NAZARIO CORTES MRN: [id number] date: 1955 Sex: M Assigned Patient Location: MRI Current Patient Location: MRI Accession/Order Number: [id number] Exam Date: 11/27/2024 13:00 Report Date: 11/27/2024 [...] chondrosis. 4. Trace effusion Electronically authenticated by: KATHARINE DORMAN Date: 11/27/2024 14:23 Dictated By: Katharine Dorman M.D. Signed By:11/27/24 1425 DD/ 1423 TD/TT: Corporate Giving Manager: Adalid Gonsalez MD [facility] Final Result documented in this encounter Visit Diagnoses Not on filedocumented in this encounter Additional Health Concerns Assessment Noted Time PHQ-9 Depression Total Score: 5 11/22/19 25 3:00 PM EST documented as of this encounter Care Teams Group Product Manager Relationship Specialty Start Date End Date Adalid Gonsalez MD PCP - General Family Medicine 12/15/23 documented as of this encounter
--- OUTSIDE RECORDS SUMMARY | 2025-08-23 08:44 | XMS_ITS | Encounter Summary ---
Author Organization [facility] Address [address] [place] [address] Care Team Providers Care Mainspring Winder And Oiler Name Role Phone Jignesh Manjarrez MD Primary Care Provider [phone] Encounter Details Date Type Department Care Team (Late st Contact Info) Description 11/12/2024 Orders Only [facility] [address] [place] [address] Zain Sena MD [address] [facility] [place] [address] Social History Tobacco Use Types Packs/Day Years [...] often do you attend chur ch or jain services? More than 4 times per year 12/14/2023 Do you belong to any clubs o r organizations such as synagogue groups, unions, fraternal or athletic groups, or [...] 0 01/11/2024 [facility]ational [facility] Questionnaire [...] ECG 3 Lead (11/12/2024 11:18 AM EST) Jignesh Manjarrez MD IN CLINIC/BEDSIDE ORDERABLES Fin [...] documented as of this encounter Care Teams Mainspring Winder And Oiler Relationship Specialty Start Date End Date Jignesh Manjarrez MD PCP - General Family Medicine 12/15/23 documented as of this encounter
--- OUTSIDE RECORDS SUMMARY | 2025-08-23 08:44 | XMS_ITS | Encounter Summary ---
Author Organization [facility] Address [address] [place] [address] Care Team Providers Care Voltage Regulator Assembler Name Role Phone Jignesh Manjarrez MD Primary Care Provider [phone] Encounter Details Date Type Department Care Team (Late st Contact Info) Description 12/11/2024 Orders Only [facility] [address] [facility] [place] [address] Esteban Sprague DO Social History Tobacco Use [...] often do you attend chur ch or pentecostal services? More than 4 times per year [...] Recorded Patient Health Questionnaire-2 Score 2 11/22/2024 [facility] Questionnaire Answer Date [...] in a usp (including now)? No 12/14/2023 Sex and Gender [...] documented as of this encounter Care Teams Voltage Regulator Assembler Relationship Specialty Start Date End Date Jignesh Manjarrez MD PCP - General Family Medicine 12/15/23 documented as of this encounter
--- OUTSIDE RECORDS SUMMARY | 2025-08-23 08:44 | XMS_ITS | Encounter Summary ---
Author Organization [facility] Address [address] [place] [address] Care Team Providers Care Criminal Investigator Name Role Phone Jignesh Manjarrez MD Primary Care Provider [phone] Encounter Details Date Type Department Care Team (Late st Contact Info) Description 05/16/2025 Results Follow-Up [facility] [address] [place] [address] Jignesh Manjarrez MD [address] [place] [address] FLUORO UGI WITH ESOPHAGUS Social History Tobacco Use Types Packs/Day Years [...] How often do you attend chur or church services? More than 4 times per year 01/15/2025 Do you belong to any clubs o r organizations such as pentecostal groups, unions, fraternal or athletic groups, or [...] Recorded Patient Health Questionnaire-2 Score 2 11/22/2024 [facility] [place] of Occupat ional Health - Occupational Stress [...] any time in the past 12 m [facility] [place], were you homeless or living in a [...] documented as of this encounter Care Teams Criminal Investigator Relationship Specialty Start Date End Date Jignesh Manjarrez MD PCP - General Family Medicine 12/15/23 documented as of this encounter
--- OUTSIDE RECORDS SUMMARY | 2025-08-23 08:44 | XMS_ITS | Encounter Summary ---
Author Organization [employer] Address [id number] [address] [place] [address] Care Team Providers Care Certified Recreational Therapist Name Role Phone Jose Marie DO Primary Care Provider Reason for Visit * Reason Comments Med Refill Encounter Details Date Type Department Care Team (Late st Contact Info) Description 08/30/2022 Refill [facility] - Family Medicine [address] [place] [address] Jose Marie DO [address], [facility] [place] [address] Social History Tobacco Use Types Packs/Day Years [...] on filedocumented in this encounter Care Teams Certified Recreational Therapist Relationship Specialty Start Date End Date Jose Marie DO [address] [facility], [place] [address] PCP - General Family Medicine 11/17/23 06/11/24 documented as of this encounter
--- OUTSIDE RECORDS SUMMARY | 2025-08-23 08:44 | XMS_ITS | Encounter Summary ---
Author Organization [facility] Address [address] [place] [address] Care Team Providers Care Garment Patternmaker Name Role Phone Jignesh Manjarrez MD Primary Care Provider [phone] Encounter Details Date Type Department Care Team (Late st Contact Info) Description 04/08/2025 Abstract [facility] [address] [place] [address] Jignesh Manjarrez MD [address] [place] [address] Social History Tobacco Use Types Packs/Day Years [...] How often do you attend chur or jainism services? More than 4 times per year 01/15/2025 Do you belong to any clubs o r organizations such as rastafari groups, unions, fraternal or athletic groups, or [...] Recorded Patient Health Questionnaire-2 Score 2 11/22/2024 [facility] of Occupat ional Health - Occupational Stress [...] in a correction (including now)? No 12/14/2023 Housing Stability Vital Sign Answer Trent e Recorded In the last 12 months, was t here a time when you were not able to pay the mortgage or rent on time? No 01/15/2025 Number of Times Moved in the Last Year Not on fi le 01/15/2025 At any time in the past 12 m [facility], were you homeless or living in a correction (including now)? No 01/15/2025 Sex and Gender [...] documented as of this encounter Care Teams Garment Patternmaker Relationship Specialty Start Date End Date Jignesh Manjarrez MD PCP - General Family Medicine 12/15/23 documented as of this encounter
--- OUTSIDE RECORDS SUMMARY | 2025-08-23 08:44 | XMS_ITS | Encounter Summary ---
Author Organization [employer] Address [id number] [address] [place] [address] Care Team Providers Care Flying Teacher Name Role Phone Jose Marie DO Primary Care Provider Reason for Visit * Reason Comments Med Refill Encounter Details Date Type Department Care Team (Late st Contact Info) Description 11/15/2022 Refill [facility] - Family Medicine [address] [place] [address] Jose Marie DO [address], [facility] [place] [address] Seizure ([facility]) Social History Tobacco Use Types Packs/Day Years [...] convulsions documented in this encounter Care Teams Flying Teacher Relationship Specialty Start Date End Date Jose Marie DO [address], [facility] [place] [address] PCP - General Family Medicine 11/17/23 06/11/24 documented as of this encounter
--- OUTSIDE RECORDS SUMMARY | 2025-08-23 08:44 | XMS_ITS | Encounter Summary ---
Author Organization [facility] Address [address] [facility] [place] [address] Care Team Providers Care Fourth Mate Name Role Phone Jignesh Manjarrez MD Primary Care Provider [phone] Encounter Details Date Type Department Care Team (Late st Contact Info) Description 01/10/2025 Orders Only [facility] [address] [place] [address] Brando Jeffrey, DO [address] [place] [address] Social History Tobacco Use Types Packs/Day Years [...] How often do you attend chur or buddhism services? More than 4 times per year 12/14/2023 Do you belong to any clubs o r organizations such as tenriism groups, unions, fraternal or athletic groups, or [...] Recorded Patient Health Questionnaire-2 Score 2 11/22/2024 [facility] of Occupat ional Health - Occupational [...] ECG 3 Lead (01/10/2025 11:03 AM EST) Brando Jeffrey DO IN CLINIC/BEDSIDE ORDERABLES Final Result documented in this encounter Visit Diagnoses Not on filedocumented in this encounter Additional Health Concerns Assessment Noted Time PHQ-9 Depression Total Score: 5 11/22/19 3:00 PM EST documented as of this encounter Care Teams Fourth Mate Relationship Specialty Start Date End Date Jignesh Manjarrez MD PCP - General Family Medicine 12/15/23 documented as of this encounter
--- OUTSIDE RECORDS SUMMARY | 2025-08-23 08:45 | XMS_ITS | Encounter Summary ---
Author Organization [facility] Address [address] [place] [address] Care Team Providers Care Retail Support Manager Name Role Phone Jignesh Manjarrez MD Primary Care Provider [phone] Carlos Gonzáles LPN Unavailable Unavailable Encounter Details Date Type Department Care Team (Late st Contact Info) Description 2024 Orders Only [facility] [address] [place] [address] Jignesh Manjarrez MD [address] [facility] [place] [address] Social History Tobacco Use Types Packs/Day Years [...] How often do you attend chur or cheondoism services? More than 4 times per year 12/14/2023 Do you belong to any clubs o r organizations such as restoration groups, unions, fraternal or athletic groups, or [...] Recorded Patient Health Questionnaire-2 Score 0 01/11/2024 [facility] of Occupat ional Health - Occupational [...] in a fpc (including now)? No 12/14/2023 Sex and Gender [...] documented as of this encounter Care Teams Retail Support Manager Relationship Specialty Start Date End Date Jignesh Manjarrez MD PCP - General Family Medicine 12/15/23 Carlos Gonzáles LPN Licensed Practical Nurse Family Medicine 03/12/24 documented as of this encounter
--- OUTSIDE RECORDS SUMMARY | 2025-08-23 08:45 | XMS_ITS | Encounter Summary ---
Author Organization [facility] Address [address] [place] [address] Care Team Providers Care Video Editing Intern Name Role Phone Jignesh Manjarrez MD Primary Care Provider [phone] Jignesh Manjarrez MD Primary Care Provider [phone] Carlos Gonzáles LPN Unavailable Unavailable Encounter Details Date Type Department Care Team (Late st Contact Info) Description 05/20/2023 Abstract [facility] [address] [place] [address] Marquise Ratliff PA [address] [place] [address] Social History Tobacco Use Types Packs/Day Years [...] on filedocumented in this encounter Care Teams Video Editing Intern Relationship Specialty Start Date End Date Jignesh Manjarrez MD PCP - General Cardiology 04/13/23 12/14/23 Jignesh Manjarrez MD PCP - General Family Medicine 12/15/23 Carlos Gonzáles LPN Licensed Practical Nurse Family Medicine 03/12/24 documented as of this encounter
--- OUTSIDE RECORDS SUMMARY | 2025-08-23 08:45 | XMS_ITS | Encounter Summary ---
Author Organization [facility] Address [address] [place] [address] Care Team Providers Care Excellence Consultant Name Role Phone Jignesh Manjarrez MD Primary Care Provider [phone] Encounter Details Date Type Department Care Team (Late st Contact Info) Description 05/28/2024 Orders Only [facility] [address] [place] [address] Dhaval Shahid MD [address] [place] [address] [id number] Social History Tobacco Use Types Packs/Day Years [...] often do you attend chur ch or mormonism services? More than 4 times per year 12/14/2023 Do you belong to any clubs o r organizations such as religion groups, unions, fraternal or athletic groups, or [...] Recorded Patient Health Questionnaire-2 Score 0 01/11/2024 [facility] - Occupational [...] to sleep or slept in a senior living (including now)? No 12/14/2023 Sex and Gender [...] Anatomical Region Laterality Modality Radiographic Kizzy ging Dhaval Shahid MD IMG XR PROCEDURES Final Res ult documented in this encounter Visit Diagnoses Not on filedocumented in this encounter Additional Health Concerns Assessment Noted Time PHQ-9 Depression Total Score: 8 11/29/19 1:28 PM EST documented as of this encounter Care Teams Excellence Consultant Relationship Specialty Start Date End Date Jignesh Manjarrez MD PCP - General Family Medicine 12/15/23 documented as of this encounter
--- OUTSIDE RECORDS SUMMARY | 2025-08-23 08:45 | XMS_ITS | Encounter Summary ---
Author Organization [facility] Address [address] [place] [address] Care Team Providers Care Sales Program Manager Name Role Phone Jignesh Manjarrez MD Primary Care Provider [phone] Encounter Details Date Type Department Care Team (Late st Contact Info) Description 06/04/2025 Orders Only [facility] [address] [place] [address] [place] [address] [place] [id number] Social History Tobacco Use Types Packs/Day Years [...] How often do you attend chur or moravian services? More than 4 times per year [...] Recorded Patient Health Questionnaire-2 Score 2 11/22/2024 [facility] Occup[facility] ional Health - Occupational Stress [...] in a retirement (including now)? No 12/14/2023 Housing Stability Vital Sign Answer Trent e Recorded In the last 12 months, was t here a time when you were not able to pay the mortgage or rent on time? No 01/15/2025 Number of Times Moved in the Last Year Not on fi le 01/15/2025 At any time in the past 12 m [facility], were you homeless or living in a retirement (including now)? No 01/15/2025 Sex and Gender Information Value Date Recorded Sex Assigned at Not on file Legal Sex Male 11:16 PM EDT Gender Identity Not on file Sexual Orientation Not on file documented as of this encounter Plan of Treatment Not on file documented as of this encounter Procedures Procedure Name Priority Date/Time Associated Diagnosis Comments CT CHEST W NZIDXVDQ23.00 %27 Routine 06/04/2025 9:16 AM EDT documented in this encounter Results * CT CHEST W QDFEBRVJ86.00 %27 (06/04/2025 9:16 AM EDT) Anatomical Region Laterality Modality Radiographic Kizzy ging us Quang Munoz MD IMG XR PROCEDURES Final Result documented in this encounter Visit Diagnoses Not on filedocumented in this encounter Additional Health Concerns Assessment Noted Time PHQ-9 Depression Total Score: 5 11/22/19 25 3:00 PM EST documented as of this encounter Care Teams Sales Program Manager Relationship Specialty Start Date End Date Jignesh Manjarrez MD PCP - General Family Medicine 12/15/23 documented as of this encounter
--- OUTSIDE RECORDS SUMMARY | 2025-08-23 08:45 | XMS_ITS | Encounter Summary ---
Author Organization [facility] Address [address] [place] [address] Care Team Providers Care Bar Machine Operator Production Name Role Phone Jignesh Manjarrez MD Primary Care Provider Encounter Details Date Type Department Care Team (Late st Contact Info) Description 08/15/2024 Orders Only [facility] [address] [place] [address] Jignesh Manjarrez MD [address] [facility] [place] [phone] Social History Tobacco Use Types Packs/Day Years [...] 0 01/11/2024 [facility] - Occupational Stress Questionnaire Answer Date [...] documented as of this encounter Care Teams Bar Machine Operator Production Relationship Specialty Start Date End Date Jignesh Manjarrez MD PCP - General Family Medicine 12/15/23 documented as of this encounter
--- OUTSIDE RECORDS SUMMARY | 2025-08-23 08:45 | XMS_ITS | Encounter Summary ---
Author Organization [facility] Address [address] [place] [address] Care Team Providers Care Splitting Machine Feeder Name Role Phone Jignesh Manjarrez MD Primary Care Provider [phone] Carlos Gonzáles LPN Unavailable Unavailable Encounter Details Date Type Department Care Team (Late st Contact Info) Description 01/31/2024 Orders [facility] [address] [place] [address] Jignesh Manjarrez MD [address] [facility] [place] [id number] Social History Tobacco Use Types Packs/Day Years [...] any clubs o r organizations such as oriental orthodox groups, unions, fraternal or athletic groups, or [...] Recorded Patient Health Questionnaire-2 Score 0 01/11/2024 [facility] ional Health - Occupational Stress [...] place to sleep or slept in a [place] (including now)? No 12/14/2023 Sex and Gender [...] Laterality Modality Spine, C-spine Radiographic Kizzy ging Jignesh GUAMAN XR PROCEDURES Final Result * XR wrist 3+ views left (01/31/2024 10:25 AM EDT) Anatomical Region Laterality Modality Upper Extremities, Wrist Left Radiogr aphic Imaging Jignesh Manjarrez MD IMG XR PROCEDURES Final Result documented in this encounter Visit Diagnoses Not on filedocumented in this encounter Additional Health Concerns Assessment Noted Time PHQ-9 Depression Total Score: 8 11/29/19 24 1:28 PM EST documented as of this encounter Care Teams Splitting Machine Feeder Relationship Specialty Start Date End Date Jignesh Manjarrez MD PCP - General Family Medicine 12/15/23 Carlos Gonzáles LPN Licensed Practical Nurse Family Medicine 03/12/24 documented as of this encounter
--- OUTSIDE RECORDS SUMMARY | 2025-08-23 08:45 | XMS_ITS | Encounter Summary ---
Author Organization [facility] Address [address] [place] [address] Care Team Providers Care Supervising Fire Marshal Name Role Phone Jignesh Manjarrez MD Primary Care Provider [phone] Encounter Details Date Type Department Care Team (Late st Contact Info) Description 07/30/2024 Abstract [facility] [address] [place] [address] Jignesh Manjarrez MD [address] [facility] [place] [address] Social History Tobacco Use Types Packs/Day Years [...] How often do you attend chur or shinto services? More than 4 times per year 12/14/2023 Do you belong to any clubs o r organizations such as anglican groups, unions, fraternal or athletic groups, or [...] Recorded Patient Health Questionnaire-2 Score 0 01/11/2024 [facility] Health - Occupational Stress Questionnaire Answer Date [...] place to sleep or slept in a jail (including now)? No 12/14/2023 Sex and Gender [...] documented as of this encounter Care Teams Supervising Fire Marshal Relationship Specialty Start Date End Date Jignesh Manjarrez MD PCP - General Family Medicine 12/15/23 documented as of this encounter
--- OUTSIDE RECORDS SUMMARY | 2025-08-23 08:45 | XMS_ITS | Encounter Summary ---
Author Organization [facility] Address [address] [place] [address] Care Team Providers Care Plunger Shovel Operator Name Role Phone Jignesh Manjarrez MD Primary Care Provider [phone] Encounter Details Date Type Department Care Team (Late st Contact Info) Description 05/16/2024 Orders Only [facility] [address] [place] [address] Unallocated, Noms Provider, [address] [place] [address] Social History Tobacco Use Types Packs/Day Years [...] often do you attend chur ch or mu-ism services? More than 4 times per year 12/14/2023 Do you belong to any clubs o r organizations such as scientologist groups, unions, fraternal or athletic groups, or [...] Recorded Patient Health Questionnaire-2 Score 0 01/11/2024 [facility] - Occupational Stress Questionnaire Answer Date [...] in a [facility] (including now)? No 12/14/2023 Sex and Gender [...] documented as of this encounter Care Teams Plunger Shovel Operator Relationship Specialty Start Date End Date Jignesh Manjarrez MD PCP - General Family Medicine 12/15/23 documented as of this encounter
--- OUTSIDE RECORDS SUMMARY | 2025-08-23 08:45 | XMS_ITS | Encounter Summary ---
Author Organization [facility] Address [address] [place] [address] Care Team Providers Care Electronic Publisher Name Role Phone Jignesh Manjarrez MD Primary Care Provider [phone] Encounter Details Date Type Department Care Team (Late st Contact Info) Description 04/04/2024 Clinisync Result Encounter [facility] External Department Unsolicited Shaikh Lerma MD [address] [place] [address] Social History Tobacco Use Types Packs/Day Years [...] often do you attend chur ch or sikh services? More than 4 times per year 12/14/2023 Do you belong to any clubs o r organizations such as anabaptist groups, unions, fraternal or athletic groups, or [...] Recorded Patient Health Questionnaire-2 Score 0 01/11/2024 [facility] - Occupational Stress Questionnaire [...] Name Priority Date/Time Associated Diagnosis Comments NM MAGALIE PERF SPECT REST STR 04/04/2024 1:01 PM EDT documented in this encounter Results * NM MAGALIE PERF SPECT REST STR (04/04/2024 1:01 PM EDT) Anatomical Region Laterality Modality Other 04/04/2024 1:01 PM EDT Narrative 04/04/2024 1:01 PM EDT [facility] [place] [id number] Nuclear Medicine Report Signed Patient: NAZARIO CORTES MR#: [id number] : 1955 Acct:[id number] Age/Sex: 69 / M ADM Date: 03/27/24 Loc: [place] Attending Dr: Shaikh Florentin Guzman Ordering Physician: Shaikh Thomas Lerma Date of Service: 03/27/24 Procedure(s): NM magalie perf SPECT rest str Accession Number(s): [id number] cc: Shaikh Thomas Lerma; Jignesh Manjarrez M.D. Patient Name: NAZARIO CORTES MR#: [id number] : 1955 Exam Date: 03/27/2024 Ordering Doctor: Shaikh Nathalie Lerma . RADIOLOGY REPORT PROCEDURE: NM MAGALIE PERF SPECT REST STR COMPARISON: None. INDICATIONS: [...] Signed By: 04/04/24 1301 DD/ 1301 TD/TT: Cotton Weigher: Procedure Note Radiology, RadiologistMD - 04/04/2024 [place] [address] Nuclear Medicine Report Signed Patient: NAZARIO CORTES EMR#: [id number] : 5Acct:[id number] Age/Sex: 69 / MADM Date: 03/27/24 Loc: [place] Attending Dr: Shaikh Florentin Guzman Ordering Physician: Shaikh Thomas Lerma Date of Service: 03/27/24 Procedure(s): NM magalie perf SPECT rest str Accession Number(s): [id number] cc: Shaikh Thomas Lerma; Jignesh Manjarrez M.D. Patient Name: NAZARIO CORTES MR#: [id number] : 1955 Exam Date: 03/27/2024 Ordering Doctor: Shaikh Nathalie Lerma . RADIOLOGY REPORT PROCEDURE: NM MAGALIE PERF SPECT REST STR COMPARISON: None. INDICATIONS: [...] M.D. Signed By:04/04/24 1301 DD/ 1301 TD/TT: Cotton Weigher: us Shaikh Florentin [facility] Final Result documented in this encounter Visit Diagnoses Not on filedocumented in this encounter Additional Health Concerns Assessment Noted Time PHQ-9 Depression Total Score: 8 11/29/19 24 1:28 PM EST documented as of this encounter Care Teams Electronic Publisher Relationship Specialty Start Date End Date Jignesh Manjarrez MD PCP - General Family Medicine 12/15/23 documented as of this encounter
--- OUTSIDE RECORDS SUMMARY | 2025-08-23 08:45 | XMS_ITS | Encounter Summary ---
Author Organization [facility] Address [address] [place] [address] Care Team Providers Care Biomedical Engineering Internship Name Role Phone Jignesh Manjarrez MD Primary Care Provider [phone] Encounter Details Date Type Department Care Team (Late st Contact Info) Description 05/01/2024 Orders Only [facility] [address] [facility] [place] [address] Elmira Mendez DO Social History Tobacco Use [...] often do you attend chur ch or alevism services? More than 4 times per year 12/14/2023 Do you belong to any clubs o r organizations such as mormonism groups, unions, fraternal or athletic groups, or [...] Recorded Patient Health Questionnaire-2 Score 0 [facility] Answer Date Recorded [...] place to sleep or slept in a care home (including now)? No 12/14/2023 Sex and [...] * Titration Study (05/01/2024 4:19 PM EDT) us Elmira Mendez DO [facility] ORDERABLES Final R esult documented in this encounter Visit Diagnoses Not on filedocumented in this encounter Additional Health Concerns Assessment Noted Time PHQ-9 Depression Total Score: 8 11/29/19 24 1:28 PM EST documented as of this encounter Care Teams Biomedical Engineering Internship Relationship Specialty Start Date End Date Jignesh Manjarrez MD PCP - General Family Medicine 12/15/23 documented as of this encounter
--- OUTSIDE RECORDS SUMMARY | 2025-08-23 08:48 | XMS_ITS | CCD ---
Author Organization [facility] Emergency Department Care Team Providers Care Pediatric Rn Name Role Phone KARINA JAY Attending Unavailable [...] Admitting Unavailable FAWBRAYAN TONY H Attending Unavailable FAWWAD TONY H Consulting Unavailable MAMIE ALFORD Consulting Unavailable HAY ., DR BUENROSTRO Admitting Unavailable HAY ., DR BUENROSTRO Attending Unavailable NADEREChata, DR JIGNESH Means Primary Care Unavailable HUBBELL, DR TRINIDAD Cummins Consulting Unavailable LUZMARIA ., [...] Care Provider JIGNESH GONSALEZ Primary Care Physician [phone] Chris CAMARILLO Attending Unavailable NADEREJIGNESH Brizuela Referring Unavailable Chris CAMARILLO Attending Unavailable MD Jignesh Gonsalez Primary Care Provider RIDGE Garcia Attending Provider MD Jignesh Gonsalez Primary Care Provider [phone] RIDGE Garcia Attending Provider Jignesh Gonsalez MD Primary Care Provider [phone] Jignesh Gonsalez Primary Care Unavailable Joslyn Garcia Attending Unavailable Joslyn Garcia Admitting Unavailable Mercyerechata, Jignesh Primary Care Unavailable Joslyn Garcia Attending Unavailable Joslyn Garcia Admitting Unavailable LuluYancy Admitting Unavailable Naderer, Jignesh Primary Care Unavailable Yancy Lawson Attending Unavailable Zenmirian Jose Danielson Primary Care Provider WILLIAM, DARRELL Referring Unavailable WILLIAM, DARRELL Referring Unavailable ELTAHAWY, ADELEAB Attending Unavailable OVITTCORNELIO Attending Unavailable MOUKARBELCOLE Referring Unavailable SAPPHIRE, BONAVENTREY Admitting Unavailable ROZINA JOSHI Attending Unavailable CORNELIO HODGES Referring Unavailable JONY WEBBER Referring Unavailable NADERER, JIGNESH Referring Unavailable Naderer Jignesh GAN Primary Care Provider Sandy Sarabia APRN Attending Provider Kaykay Mendoza APRN Attending Provider AMRIK PÉREZ Attending Unavailable NADERER, JIGNESH Referring Unavailable NADERER, JIGNESH Attending Unavailable DANECHARI Attending Unavailable NADERER, JIGNESH Attending Unavailable NADERER, JIGNESH Attending Unavailable DANE, CHARI Means Attending Unavailable NADERER, JIGNESH Attending Unavailable NADERER, JIGNESH Attending Unavailable NADERER, JIGNESH Attending Unavailable DANE, CHARI A Attending Unavailable NADERER, JIGNESH Attending Unavailable DANE, CHARI A Attending Unavailable JIGNESH GONSALEZ Attending Unavailable JOSE M REA Attending Unavailable JIGNESH GONSALEZ Referring Unavailable Joslyn Garcia APRN Attending Provider Jignesh Gonsalez MD Attending Provider [phone] Allergies Allergy Classification Reported Allergen(s) Allergy Type Date of Onset Reaction(s) Facility Anti-Epileptic Agents (2 sources) gabapentin Drug Allergy 4 stomach upset, IV ONLY-Dizzy [facility] Opioid Agonists (1 source) oxyCODONE Drug Allergy 4 Unknown Reaction [facility] (15 sources) gabapentin; Translations: [GABAPENTIN] Drug Allergy 0 stomach upset [facility] Repository (2 sources) oxyCODONE Drug Allergy 0 [facility] Repository (3 sources) Phenytoin; Translations: [Dilantin] Drug Allergy 0 [facility] Repository (20 sources) gabapentin; Translations: [gabapentin] Drug Allergy 0 Unknown (qualifier value), Unknown [facility] (20 sources) oxyCODONE; Translations: [oxycodone] Drug Allergy 0 Difficulty breathing (finding), Angioedema, Unknown [facility] (20 sources) Phenytoin; Translations: [phenytoin] Drug Allergy 6 Dizziness (finding), Unknown, Dizziness [facility] (2 sources) Phenytoin; Translations: [PHENYTOIN SODIUM EXTENDED] Drug Allergy 6 [facility] Repository (1 source) gabapentin Drug Allergy 4 [facility] Repository (1 source) oxyCODONE Drug Allergy 4 [facility] Repository (1 source) Phenytoin Drug Allergy 4 [facility] Repository Medications Current Medications Medication Drug Class(es) Dates Sig (Normalized) Sig (Original) acetaminophen 325 mg / HYDROcodone bitartrate 5 mg oral tablet (20 sources) Opioid Agonist Start: 07-16-2025 End: 07-23-2025 take 1 tablet by mouth four times daily as needed for pain HYDROcodone-acetami nophen (Charlotte) 5-325 MG tablet Indications: Degenerative lumbar spinal stenosis Take 1 tablet by mouth 4 (four) times a day as needed for severe pain for up to 7 days 28 tablet 07/16/2025 07/23/2025 Active Start: 04-23-2024 End: 08-01-2025 take 1 tablet by mouth four times daily as needed for pain HYDROcodone-acetaminophen ([place]) 5-325 MG tablet Indications: Degenerative lumbar spinal stenosis Take 1 tablet by mouth 4 (four) times a day as needed for severe pain for up to 7 days 28 tablet 01/28/2025 02/04/2025 Active Charlotte Active take 1 tablet by ambika th [...] cium Active citalopram 40 mg oral tablet (20 sources) [...] 2 mg/ml injectable solution (1 source) vit T0-H5-X8-B5- B6 (B-COMPLEX INJECTION) 274-0-996-2-2 mg/mL solution B-Complex 1 QD 0 Active [...] / salmeterol 0.05 mg/actuat dry powder inhaler (18 sources) Corticosteroid, beta2-Adrenergic Agonist Start: 05-23-2025 take [...] oral tablet (20 sources) Loop Diuretic Start: 04-23-2024 take 1 tablet by mouth once daily as needed Furosemide 40 mg tablet Active 40 MG PO Daily as needed April 23, 2024 12:00am Complies with drug therapy meclizine hydrochloride 25 mg oral tablet (20 sources) Antiemetic Start: 04-13-2024 End: 05-14-2025 take 1 tablet by mouth four times daily as needed Meclizine 25 mg tablet Active 25 MG PO Four times daily as needed April 23, 2024 12:00am Complies with drug therapy Start: 07-15-2023 meclizine 25 m g Tab Refills(s) 0 Start Date: 07/15/23 Status: Ordered methocarbamol 750 mg oral tablet (20 sources) Muscle Relaxant Start: 08-01-2025 take 1 tablet by mouth four times daily as needed for muscle spasms Methocarbamol 750 mg tablet Active 750 MG PO Four times daily as needed for muscle spasms August 01, 2025 12:00am Complies with drug therapy Start: 07-16-2025 take 1 tablet by ambika th four times daily as needed for muscle spasms methocarbamol (Robaxin) 750 MG tablet Indications: Chronic pain of right knee Take 1 tablet (750 mg) by mouth 4 (four) times a day as needed for muscle spasms 60 tablet 3 07/16/2025 Active Start: 09-07-2024 End: 08-01-2025 take 1 tablet by mouth three times daily as needed for muscle spasms Methocarbamol 750 mg tablet Discontinued 750 MG PO Three times daily as needed for muscle spasm 21 September 07, 2024 12:00am August 01, 2025 11:19am 24 hr metoprolol succinate 25 mg extended release oral tablet (20 sources) beta-Adrenergic Daisy Start: 02-20-2025 take 1 tablet by mouth once daily Metoprolol Succinate 25 mg tablet extended release 24 hr Active 25 MG PO daily May 26, 2025 12:00am Complies with drug therapy Start: 01-13-2025 End: 02-12-2025 take 1 tablet [...] Daily April 23, 2024 12:00am Multivitamin tablet (3 sources) Start: 04-23-2024 take 1 tablet [...] omeprazole 40 mg delayed release oral capsule (12 sources) Proton Pump Inhibitor Start: 05-23-2025 take 1 capsule by mouth once Omeprazole 40 mg capsule,delayed release(DR/EC) Active 40 MG PO Once May 26, 2025 12:00am Complies with drug therapy PHENobarbital 32 mg oral tablet (20 sources) Start: 02-11-2025 End: 06-18-2025 take 2 tablets by mouth three times daily PHENobarbital (Luminal) 32.4 MG tablet Indications: Seizure disorder (HCC) TAKE 2 TABLETS BY MOUTH THREE TIMES DAILY 180 tablet 5 06/18/2025 Active Start: 09-25-2024 End: 11-28-2024 take 2 tablets by mouth three times daily PHENobarbital (Luminal) 32.4 MG tablet Indications: Seizure disorder (CMS/HCC) TAKE 2 TABLETS BY MOUTH THREE TIMES DAILY 180 tablet 5 11/28/2024 Active Start: 07-18-2024 take 2 tablets by mo [facility] three times daily PHENobarbital (Luminal) 32.4 MG tablet Indications: Seizure disorder (CMS/HCC) TAKE 2 TABLETS BY MOUTH THREE TIMES DAILY 180 tablet 1 07/18/2024 Active Start: 04-23-2024 take 1 tablet by ambika three times daily Phenobarbital 32.4 mg tablet Active 32.4 MG PO Three times daily April 23, 2024 12:00am Complies with drug therapy Start: 01-23-2024 End: 09-25-2024 take 2 tablets by mouth three times daily PHENobarbital (Luminal) 32.4 MG tablet Indications: Seizure disorder (CMS/HCC) TAKE 2 TABLETS BY MOUTH THREE TIMES DAILY 180 tablet 1 09/25/2024 Active Start: 11-15-2022 take 2 tablets by mo [facility] three times daily PHENobarbitaL (LUMINAL) 32.4 mg tablet Indications: Seizure (CMS-HCC) take 2 tablets by mouth three times a day 180 tablet 0 11/15/2022 Active take 1 tablet by [facility] every twelve hours PHENobarbital 32.4 MG [...] End: 02-18-2026 take 2 capsules by mouth every eight hours Phenytoin Sodium Extended 100 mg capsule Active 200 MG PO Every 8 hours September 07, 2024 3:02pm Complies with drug therapy Start: 07-15-2023 phenytoin 100 mg Cap-ER Refills(s) 0 Start Date: 07/15/23 Status: Ordered Start: 08-30-2022 phenytoin (DIL ANTIN) 100 mg ER capsule take 2 capsules three times a day 360 capsule 1 08/30/2022 Active take 1 capsule by mo [facility] every twelve hours Phenytoin Sodium Extended 100 MG 1 capsule Orally every 12 hrs Active predniSONE 50 mg oral tablet (10 sources) Start: 10-25-2024 End: 10-31-2024 take 1 tablet by mouth once daily predniSONE (Deltasone) 50 MG tablet Indications: Chronic pain of right knee Take 1 tablet (50 mg) by mouth Daily for 6 days 6 tablet 10/25/2024 10/31/2024 Active Start: 08-16-2024 End: 09-07-2024 take 1 tablet by mouth twice daily Prednisone 20 mg tablet Discontinued 20 MG PO Twice daily 10 August 16, 2024 12:00am September 07, 2024 3:02pm spironolactone 25 mg oral tablet (20 sources) Aldosterone Antagonist Start: 05-21-2025 take 1 tablet by mouth once daily Spironolactone 25 mg tablet Active 25 MG PO Daily May 26, 2025 12:00am Complies with drug therapy Start: 02-20-2025 take 1 tablet by ambika th once daily spironolactone (Aldactone) 25 MG tablet Indications: Bilateral leg edema Take 1 tablet (25 mg) by mouth Daily 30 tablet 3 02/20/2025 Active triamcinolone acetonide 5 mg/ml topical cream (20 sources) Corticosteroid Start: 06-25-2025 triamcinolone (Kenalog) 0.5 % cream Indications: Dyshidrotic eczema Apply topically in the morning and in the evening and before bedtime. 60 g 2 06/25/2025 Active Start: 05-26-2025 Triamcinolone Acetonide 0.5 % cream Active APPLIC TOPICAL May 26, 2025 12:00am Complies with drug therapy Start: 02-21-2025 triamcinolone (Kenalog) 0.5 % cream Indications: Dyshidrotic eczema Apply topically 3 (three) times a day 60 g 2 02/21/2025 Active 30 actuat umeclidinium 0.0625 mg/actuat dry powder inhaler (20 sources) Anticholinergic Start: 05-12-2025 Umeclidinium ( Incruse Ellipta) 62.5 mcg/actuation blister with device Active INHALATION May 12, 2025 12:00am Complies with drug therapy Start: 03-28-2025 take 1 puff(s) by in halation once daily Umeclidinium Fritch (Incruse Ellipta) 62.5 MCG/ACT aerosol powder Indications: [...] 4 tablet 11/27/2024 12/19/2024 Discontinued (Therapy completed) cetirizine hydrochloride 10 mg oral tablet (6 sources) Histamine-1 Receptor Antagonist Start: 08-16-2024 End: 08-01-2025 take 1 tablet by mouth once daily Cetirizine (Allergy Relief (Cetirizine)) 10 mg tablet Discontinued 10 MG PO daily 14 August 16, 2024 12:00am August 01, 2025 10:53am ciprofloxacin 3 mg/ml / dexamethasone 1 mg/ml otic suspension (6 sources) Corticosteroid, Quinolone Antimicrobial Start: 05-26-2025 End: 08-01-2025 Ciprofloxacin-Dexa methasone 0.3-0.1 % drops,suspension Discontinued 4 DROPS OTIC Twice daily 7.5 7 May 26, 2025 12:00am August 01, 2025 10:53am Start: 05-12-2025 End: 05-12-2025 Ciprofloxacin-Dexamethasone 0.3-0.1 % drops,suspension Discontinued 4 DROPS EAR-BOTH Twice daily 7.5 7 May 12, 2025 12:00am May 12, 2025 1:10pm ibuprofen 200 mg oral tablet (7 sources) Nonsteroidal Anti-inflammatory Drug Start: 09-07-2024 End: 08-01-2025 take 2 tablets by mouth every six hours as needed Ibuprofen 200 mg tablet Discontinued 400 MG PO Every 6 hours as needed September 07, 2024 12:00am August 01, 2025 11:15am Start: 09-07-2024 take 400 mg by mouth [...] mouth in the morning. 01/13/2025 02/20/2025 Discontinued meloxicam 7.5 mg oral tablet (19 sources) Nonsteroidal Anti-inflammatory Drug Start: 04-23-2024 End: 08-01-2025 take 1 tablet by mouth once daily Meloxicam 7.5 mg tablet Discontinued 7.5 MG PO Daily September 07, 2024 12:00am August 01, 2025 11:15am meloxicam 15 mg tablet,disintegrating 1 tablet 0 Active Meloxicam Not-Ta noa Meloxicam Active Mens Multivitamin (2 sources) Mens Multivitami n Not-Taking Mens Multivitami n Active ofloxacin 3 mg/ml ophthalmic solution (3 sources) Quinolone Antimicrobial Start: 10-17-2024 End: 10-17-2024 take 0.3 drop(s) into the eye(s) four times daily Ofloxacin 0.3 % drops Discontinued 2 DROPS EYE-BOTH Four times daily 08 27October 17, 2024 1:00am October 17, 2024 3:04pm potassium chloride 20 meq extended release oral tablet (20 sources) Start: 06-06-2024 End: 02-20-2025 take 1 tablet by mouth once daily potassium chloride CR (K-Tab) 20 MEQ ER tablet Indications: Bilateral leg edema take 1 tablet by mouth once daily if needed 30 tablet 3 06/06/2024 02/20/2025 Discontinued Start: 04-23-2024 End: 08-02-2025 Potassium Chloride 20 mEq ta blet extended release Discontinued MEQ PO April 23, 2024 12:00am August 02, 2025 11:34am Start: 04-23-2024 Potassium Chlo ride Active MEQ [...] Discontinued vitamin b12 5 mg oral capsule (19 sources) Vitamin B12 Start: 04-23-2024 End: 10-17-2024 [...] Date Documented Da te Episodic/Chronic Abdominal hernia (12 sources) Gastroesophageal reflux disease with hiatal hernia; Translations: [Diaphragmatic hernia without obstruction or gangrene] Onset: 5 05-23-2025 Episodic Bacterial infection; unspecified site (10 sources) Rheumatic fever; Translations: [Rheumatic fever without heart involvement] 04-23-2024 Episodic Biliary tract disease (10 sources) Disorder of gallbladder; Translations: [Disease of [...] disease (20 sources) Atherosclerotic heart disease of [place] coronary artery without angina pectoris; Translations: [Coronary arteriosclerosis] Onset: 0 Resolved: 5 11-29-2023 Chronic Disorders of lipid metabolism (20 sources) Mixed hyperlipidemia; Translations: [Pure hypercholesterolemia, unspecified] Onset: 0 07-15-2023 Chronic E Codes: Fall (5 sources) Fall on same level, unspecified, initial [...] RADIUS INIT CLOS FX] Onset: 3 Episodic Influenza (7 sources) Influenza due to Influenza A virus; Translations: [Influenza due to other identified influenza virus with other respiratory manifestations] Onset: 5 06-25-2025 Episodic Joint disorders and dislocations; trauma-related (20 sources) Derangement of right knee; Translations: [Unspecified internal derangement of right knee] Onset: 2 10-25-2024 Chronic Malignant neoplasm without specification of site (11 sources) Malignant neoplastic disease; 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, unspecified] Onset: 8 04-23-2024 Chronic Mood disorders (20 sources) Chronic depression; Translations: [Chronic depression] Onset: 3 04-23-2024 Chronic Osteoarthritis (12 sources) Unspecified osteoarthritis, unspecified site; Translations: [Arthritis] Onset: 2 04-23-2024 Chronic Other aftercare (1 source) penitentiary (current) use of aspirin; Translations: [ASSISTED CURRENT USE OF ASPIRIN] Onset: 3 Episodic Other aftercare (1 source) 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; Translations: [OTH ASSISTED CURRENT DRUG THERAPY] Onset: 3 Episodic Other aftercare (20 sources) Long-term current use of drug therapy; Translations: [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] Onset: 4 11-29-2023 Episodic Other and unspecified benign neoplasm (14 sources) History of polyp of colon; Translations: [Personal history of colonic polyps] Onset: 0 04-23-2024 Episodic Other bone disease and musculoskeletal deformities (1 source) Other specified disorders of bone density and structure, unspecified site; Translations: [OTH D/O BONE DEN STRUCT UNS SITE] Onset: 2 Episodic Other connective tissue disease (13 sources) Dupuytren's contracture; Translations: [Palmar fascial fibromatosis [Dupuytren]] 04-23-2024 Episodic Other connective tissue disease (2 sources) Arthrodesis status; Translations: [ARTHRODESIS STATUS] Onset: 2 Episodic Other ear and sense organ disorders (3 sources) Sensorineural hearing loss, bilateral; Translations: [Sensorineural hearing loss, bilateral] 10-30-2024 Chronic Other ear and sense organ disorders (3 sources) Otitis externa of left ear; Translations: [Unspecified otitis externa, left ear] 05-26-2025 Chronic Other ear and sense organ disorders (8 sources) Impacted cerumen, bilateral; Translations: [Impacted cerumen] Onset: 2 Resolved: 2 Episodic Other ear and sense organ disorders (1 source) Impacted cerumen, right ear; Translations: [IMPACTED CERUMEN RIGHT EAR] Onset: 2 Episodic Other ear and sense organ disorders (13 sources) Impacted cerumen; Translations: [Impacted cerumen, bilateral] 04-23-2024 Episodic Other ear and sense organ disorders (3 sources) Impacted cerumen of bilateral ears; Translations: [Impacted cerumen, bilateral] 04-23-2024 Episodic Other ear and sense organ disorders (2 sources) Impacted cerumen in right ear; Translations: [Impacted cerumen, right ear] 08-02-2025 Episodic Other endocrine disorders (2 sources) Hypoglycemia; Translations: [Hypoglycemia, unspecified] 08-02-2025 Chronic Other gastrointestinal disorders (6 sources) Dysphagia; Translations: [...] Onset: 4 Episodic Other nervous system disorders (13 sources) Toxic polyneuropathy; Translations: [Polyneuropathy due to [...] Onset: 3 Episodic Other non-traumatic joint disorders (9 sources) Pain in elbow; Translations: [Pain in [...] (BMI) of 40.0 to 44.9 in adult ([facility])] Onset: 1 11-22-2024 Chronic Other upper respiratory disease (2 sources) Allergic rhinitis, unspecified; Translations: [Allergic rhinitis, cause unspecified] 08-16-2024 Chronic Other upper respiratory disease (20 sources) Deviated nasal septum; Translations: [Deviated nasal septum] Onset: 3 10-26-2023 Episodic Other upper respiratory infections (20 sources) Chronic sinusitis, unspecified; Translations: [Chronic rhinitis] Onset: 4 10-25-2024 Chronic Pneumonia (except that caused by tuberculosis or sexually transmitted disease) (7 sources) Pneumonia; Translations: [Pneumonia, unspecified organism] Onset: 5 06-25-2025 Episodic Residual codes; unclassified (1 source) Sleep apnea, unspecified; Translations: [SLEEP APNEA UNSPECIFIED] Onset: 2 Chronic Residual codes; unclassified (20 sources) Obstructive sleep apnea syndrome; Translations: [Obstructive sleep apnea (adult) (pediatric)] Onset: 4 02-21-2024 Chronic Residual codes; unclassified (3 sources) Sleep apnea; Translations: [Sleep apnea, unspecified] 10-17-2024 [...] 02-21-2024 Episodic Respiratory failure; insufficiency; arrest (adult) (20 sources) Chronic hypoxemic respiratory failure; Translations: [Chronic [...] Onset: 2 11-29-2023 Episodic Sprains and strains (4 sources) Sprain of unspecified site of left knee, initial encounter; Translations: [Sprain of right knee] Onset: 2 09-08-2024 Episodic Superficial injury; contusion (2 sources) Contusion of left hip, initial encounter; Translations: [Abrasion of left elbow, initial encounter] Onset: 3 Episodic Transient cerebral ischemia (10 sources) Transient cerebral ischemia; Translations: [Transient cerebral [...] Onset: 06-12-2022 Episodic Other aftercare (20 sources) Post-discharge follow-up; Translations: [Encounter for follow-up examination after completed treatment for conditions other than malignant neoplasm] Onset: 01-11-2024 Resolved: 02-21-2024 02-21-2024 Episodic Other aftercare (1 source) Patient encounter status; Translations: [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 [facility] RESULT 2on 03-09-2025 RESULT 2 Result 2 Few gram positive rods. [facility] RESULT 3on 03-09-2025 RESULT 3 Result 3 MARINE PIPEFITTER [facility] RESULT 4on 03-09-2025 RESULT 4 Result 4 MARINE PIPEFITTER [facility] WHITE BLOOD CELLSon 03-09-20 WHITE BLOOD CELLS White Blood Cells [facility] WHITE BLOOD CELLS Many [facility] ECG 12-LEADon 03-08-2025 [place] [address] Electrocardiograph Report Signed Patient: NAZARIO CORTES Jr. MR#: [id number] : 1955 Acct:[id number] Age/Sex: 70 / M ADM Date: 03/07/25 Loc: MS 219-[address]: Anson Manriquez M.D. 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 Measurements Intervals E[place]om Rate: 78 P: 49 CT: 174 QRS: 16 QRSD: 84 T: 40 QT: 380 QTc: 414 Interpretive Statements 1100 Sinus rhythm 9110 normal ECG Compared to ECG 02/21/2025 11:34:46 No significant changes Electronically Signed On 03-08-2025 11:51:46 EDT by COLE SMITH M.D. Dictated By: COLE SMITH Signed By: 03/08/25 1152 DD/ 11 TD/TT: Shampoo Person: [facility] Radiology, Radiologist, - 03/08/2025 The [place] [id number] Electrocardiograph Report Signed Patient: NAZARIO CORTES Jr. MR#: [id number] : 1955 Acct:[id number] Age/Sex: 70 / M ADM Date: 03/07/25 Loc: MS 219-[address]: Anson Manriquez M.D. 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 Measurements Intervals [place]om Rate: 78 P: 49 CT: 174 QRS: 16 QRSD: 84 T: 40 QT: 380 QTc: 414 Interpretive Statements 1100 Sinus rhythm 9110 normal ECG Compared to ECG 02/21/2025 11:34:46 No significant changes Electronically Signed On 03-08-2025 11:51:46 EDT by COLE SMITH M.D. Dictated By: COLE SMITH Signed By: 03/08/25 1152 DD/ 11 TD/TT: Shampoo Person: [facility] [employer] ECG 12-LEADOrdered By: Radio logist Radiology on 03-08-2025 [facility] [employer] Work Phone: ECG 12-LEADon 03-07-2025 Radiology Study observation (narrative) [facility] RT PULMONARY FUNCTION TESTon 02-27-2025 [place] [address] Respiratory Report Signed Patient: NAZARIO CORTES Jr. MR#: [id number] : 1955 Acct:[id number] Age/Sex: 70 / M ADM Date: 02/22/25 Loc: CARD Attending Dr: Jignesh Gonsalez M.D. Ordering Physician: Jignesh Gonsalez M.D. 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 MR#: [id number] : 1955 Acct:[id number] Age/Sex: 70 / M ADM Date: 02/22/25 Loc: CARD Attending Dr: Jignesh Gonsalez M.D. Ordering Physician: Jignesh Gonsalez M.D. 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 1955 M Date Provider Department Center 01/22/2025 271-ARNAUD LYONS CARD [facility] Family History Problem Relation Age of Onset Supraventricular tachycardia Mother Stroke Father Kidney cancer Sister Diabetes Sister COPD Brother Family Status - Relation Status Age at Mother Father Sister Brother Level of Service:62885 CT OFFICE/OUTPATIENT ESTABLISHED LOW MDM 20 MIN Normal [facility] BASIC METABOLIC PANELon - Anion gap [Moles/Vol] 11 mmol/L Normal 7-20 [facility] Comment on above: Performed By: #### L [id number] #### [facility] (BEAKER) [address] [place] [address] Calcium [Mass/Vol] 8.8 mg/dL Normal 8.6-10.3 [facility] Comment on above: Performed By: #### L [id number] #### [facility] (BEAKER) [address] [place] [address] Chloride [Moles/Vol] 104 mmol/L Normal 98-107 [facility] Comment on above: Performed By: #### L [id number] #### [facility] (BEAKER) [address] [place] [address] CO2 [Moles/Vol] 24 mmol/L Normal 21-31 [facility] Comment on above: Performed By: #### L [id number] #### [facility] ([facility]) [address] [place] [address] Creatinine [Mass/Vol] 0.81 mg/dL Normal 0.70-1.30 [facility] Comment on above: Performed By: #### L [id number] #### [facility] ([facility]) [address] [place] [address] GLOMERULAR FILTRATION RATE ML/MIN/1.73 SQ M.PREDICTED 95.4 mL/min/1.73m*2 Normal >60.0 [facility] Comment on above: Result Comment: [facility]???s estimated glomerular filtration rate (eGFR) [...] individuals. Performed By: #### L [id number] #### [facility] ([facility]) [address] [place] [address] Glucose [Mass/Vol] 114 mg/dL High 70-100 [facility] Comment on above: Performed By: #### L [id number] #### [facility] ([facility]) [address] [place] [address] Potassium [Moles/Vol] 4.2 mmol/L Normal 3.5-5.1 [facility] Comment on above: Performed By: #### L [id number] #### [facility] ([facility]) [address] [place] [address] Sodium [Moles/Vol] 135 mmol/L Low 136-145 [facility] Comment on above: Performed By: #### L [id number] #### [facility] ([facility]) [address] [place] [address] Urea nitrogen [Mass/Vol] 23 mg/dL Normal 7-25 [facility] Comment on above: Performed By: #### L [id number] #### [facility] ([facility]) [address] [place] [address] UREA NITROGEN/CREATININE (MASS RATIO) IN SER/PLAS 28.4 Normal [facility] Comment on above: Performed By: #### L [id number] #### [facility] ([facility]) [address] [place] [address] FOLATEon 01-13-2025 FOLATE (NG/ML) IN SER/PLAS 20.54 ng/mL Normal 6.6-1000 [facility] Comment on above: Performed By: #### L [id number] #### [facility] ([facility]) [address] [place] [address] NURSNOTEon 01-13-2025 NURSNOTE Pt discharged with a ll belongings, discharge paperwork, and questions answered to pt's satisfaction. Normal [facility] VITAMIN B12on 01-13-2025 Cobalamin (Vitamin B12) [Mass/Vol] 353 pg/mL Normal 180-914 [facility] Comment on above: Result Comment: REFE RENCE RANGES: 180-914 pg/mL Normal 145-179 pg/mL Indeterminate <145 pg/mL Deficient Performed By: #### L [id number] #### [facility] (BEBRIGITTE) [address] [place] [address] 30on 01-12-2025 30 The patient is Moderately [...] and behaviors that affect risk of falls Wynona fall precautions as indicated by assessment Educate [...] overall improvement and discharge Normal [facility] 30 The patient is Moderately Stable - Low risk of patient condition declining or worsening The patient's goals for the shift include comfort, rest The clinical goals for the shift include vss, safety Normal [facility] B-TYPE NATRIURETIC PEPTIDEon 01-12-2025 Natriuretic peptide B (Bld) [Mass/Vol] 34 pg/mL Normal 0-100 [facility] Comment on above: Performed By: #### L [id number] #### [facility] (BEAKER) [address] [place] [address] BASIC METABOLIC PANELon 12-23 Anion gap [Moles/Vol] 10 mmol/L Normal 7-20 [facility] Comment on above: Performed By: #### L [id number] #### [facility] ([facility]) [address] [place] [address] Calcium [Mass/Vol] 8.4 mg/dL Low 8.6-10.3 [facility] Comment on above: Performed By: #### L [id number] #### [facility] (BEAKER) [address] [place] [address] Chloride [Moles/Vol] 101 mmol/L Normal 98-107 [facility] Comment on above: Performed By: #### L [id number] #### [facility] (BEAKER) [address] [place] [address] CO2 [Moles/Vol] 26 mmol/L Normal 21-31 [facility] Comment on above: Performed By: #### L [id number] #### [facility] (BEAKER) [address] [place] [address] Creatinine [Mass/Vol] 0.79 mg/dL Normal 0.70-1.30 [facility] Comment on above: Performed By: #### L [id number] #### [facility] (BEAKER) [address] [place] [address] GLOMERULAR FILTRATION RATE ML/MIN/1.73 SQ M.PREDICTED 96.2 mL/min/1.73m*2 Normal >60.0 [facility] Comment on above: Result Comment: [facility]???s estimated glomerular filtration rate (eGFR) [...] individuals. Performed By: #### L [id number] #### [facility] ([facility]) [address] [place] [address] Glucose [Mass/Vol] 114 mg/dL High 70-100 [facility] Comment on above: Performed By: #### L [id number] #### [facility] ([facility]) [address] [place] [address] Potassium [Moles/Vol] 4.2 mmol/L Normal 3.5-5.1 [facility] Comment on above: Performed By: #### L [id number] #### [facility] ([facility]) [address] [place] [address] Sodium [Moles/Vol] 133 mmol/L Low 136-145 [facility] Comment on above: Performed By: #### L [id number] #### [facility] ([facility]) [address] [place] [address] Urea nitrogen [Mass/Vol] 20 mg/dL Normal 7-25 [facility] Comment on above: Performed By: #### L [id number] #### [facility] ([facility]) [address] [place] [address] UREA NITROGEN/CREATININE (MASS RATIO) IN SER/PLAS 25.3 Normal [facility] Comment on above: Performed By: #### L [id number] #### [facility] ([facility]) [address] [place] [address] CBCon 01-12-2025 Erythrocyte distribution width (RBC) [Ratio] 13.3 % Normal 11.5-15.0 [facility] Comment on above: Performed By: #### L [id number] #### [facility] ([facility]) [address] [place] [address] ERYTHROCYTE MEAN CORPUSCULAR HEMOGLOBIN CONCENTRATION (G/DL) BY AUTOMATED 32.7 g/dL Normal 32.0-35.0 [facility] Comment on above: Performed By: #### L [id number] #### [facility] ([facility]) [address] [place] [address] Hematocrit (Bld) [Volume fraction] 41.0 % Normal 39.0-55.0 [facility] Comment on above: Performed By: #### L [id number] #### [facility] ([facility]) [address] [place] [address] Hemoglobin (Bld) [Mass/Vol] 13.4 g/dL Normal 13.0-17.0 [facility] Comment on above: Performed By: #### L [id number] #### [facility] ([facility]) [address] [address] MCH (RBC) [Entitic mass] 32.8 pg Normal 27.0-33.0 [facility] Comment on above: Performed By: #### L [id number] #### [facility] ([facility]) [address] [address] MCV (RBC) [Entitic vol] 100.2 fL High 82.0-98.0 [facility] Comment on above: Performed By: #### L [id number] #### [facility] ([facility]) [address] [address] PLATELETS (10*3/UL) IN BLOOD AUTOMATED COUNT 197 10*3/uL Normal 150-400 [facility] Comment on above: Performed By: #### L [id number] #### [facility] ([facility]) [address] [place] [address] RBC (Bld) [#/Vol] 4.09 10*6/uL Low 4.20-5.70 [facility] Comment on above: Performed By: #### L [id number] #### [facility] ([facility]) [address] [place] [address] WBC (Bld) [#/Vol] 8.31 10*3/uL Normal 4.00-10.60 [facility] Comment on above: Performed By: #### L [id number] #### [facility] ([facility]) [address] [place] [address] HEMOGLOBIN A1Con 01-12-2025 Glucose [Mass/Vol] 108 mg/dL Normal [facility] Comment on above: Performed By: #### L [id number] #### [facility] ([facility]) [address] [place] [address] HbA1c (Bld) [Mass fraction] 5.4 % Normal 4.0-6.0 [facility] Comment on above: Performed By: #### L [id number] #### [facility] ([facility]) [address] [place] [address] HEPATIC FUNCTION PANELon Albumin [Mass/Vol] 3.7 g/dL Normal 3.5-5.7 [facility] Comment on above: Performed By: #### L [id number] ####[facility] ([facility])[address] [place] [address] ALP [Catalytic activity/Vol] 152 U/L High 34-104 [facility] Comment on above: Performed By: #### L [id number] ####[facility] ([facility])[address] [place] [address] ALT [Catalytic activity/Vol] 20 U/L Normal 7-52 [facility] Comment on above: Performed By: #### L [id number] ####[facility] ([facility])[address] [place] [address] AST [Catalytic activity/Vol] 25 U/L Normal 13-39 [facility] Comment on above: Performed By: #### L [id number] ####[facility] ([facility])[address] [place] [address] Bilirubin [Mass/Vol] 0.5 mg/dL Normal 0.3-1.0 [facility] Comment on above: Performed By: #### L [id number] ####[facility] ([facility])[address] [place] [address] Magnesium [Mass/Vol] 0.1 mg/dL Normal 0-0.2 [facility] Comment on above: Performed By: #### L [id number] ####[facility] ([facility])[address] [place] [address] Protein [Mass/Vol] 8.1 g/dL Normal 6.0-8.3 [facility] Comment on above: Performed By: #### L [id number] ####[facility] ([facility])[address] [place] [address] LIPID PANELon 01-12-2025 CHOL/HDL 3.3 mg/dL Normal [facility] Comment on above: Performed By: #### L [id number] ####[facility] ([facility])[address] [place] [address] Cholesterol [Mass/Vol] 140 mg/dL Normal 120-200 [facility] Comment on above: Performed By: #### L [id number] ####[facility] ([facility])[address] [place] [address] Magnesium [Mass/Vol] 230 mg/dL High 40-149 [facility] Comment on above: Result Comment: TRIG LYCERIDE REFERENCE RANGE: 20 YEARS AND OLDER CARDIOVASCULAR RISK LESS THAN 150 mg/dL LOW RISK 150 TO 199 mg/dL BORDERLINE RISK 200 mg/dL AND GREATER HIGH RISK Performed By: #### L [id number] ####[facility] ([facility])[address] [place] [address] Magnesium [Mass/Vol] 51 mg/dL Normal 0-160 [facility] Comment on above: Performed By: #### L [id number] ####[facility] ([facility])[address] [place] [address] Magnesium [Mass/Vol] 43 mg/dL Normal 23-92 [facility] Comment on above: Performed By: #### L [id number] ####[facility] ([facility])[address] [place] [address] NON HDL CHOL. (LDL+VLDL) 97 Normal [facility] Comment on above: Performed By: #### L [id number] ####[facility] ([facility])[address] [place] [address] TOTAL VLDL-C 46 mg/dL High 0-40 [facility] Comment on above: Performed By: #### L [id number] ####[facility] ([facility])[address] [place] [address] MAGNESIUMon 01-12-2025 Magnesium [Mass/Vol] 1.9 mg/dL Normal 1.9-2.7 [facility] Comment on above: Performed By: #### L [id number] #### [facility] ([facility]) [address] [place] [address] 30on 01-11-2025 30 The patient is Moderately [...] or improved Outcome: Progressing Normal [facility] 30 Daily Case Managemen t Update Multidisciplinary rounds have been completed. Barriers to Discharge: Patient presented to [facility] with chest pain, and was transferred to [facility] for heart cath. Patient to go [...] Level of Consultation Consultation and Management 01/11/25136 [facility] 30 The patient is Moderately Stable [...] overall improvement and discharge Normal [facility] 30 The patient is Moderately Stable - Low risk of patient condition declining or worsening The patient's goals for the shift include Comfort The clinical goals for the shift include VSS [facility] Marguerite 01-11-2025 ANES -- Attestation signed by Arnaud Lyons MD at 01/11/2025 1:02 PM Arnaud yLons MD, MPH, [facility], [facility], [facility] Interventional Cardiology Pager Email: [email or web address] Patient: Nazario Cortes Procedure Information Date/Time: 01/11/25 7240 Procedure: Coronary angiography Location: [facility] 3 / [facility] (Cath) Providers: Arnaud [...] attending. Additional Equipment Requests Normal [facility] APTTon 01-11-2025 ACTIVATED PARTIAL THROMBOPLASTIN TIME IN PPP BY COAGULATION ASSAY 26.3 Seconds Normal 25.0-35.0 [facility] Comment on above: Order Comment: Basel ine aPTT before initiating heparin infusion. Result Comment: Clin ical significance of the APTT is questionable in the presence of heparin. Performed By: #### L [id number] #### [facility] (BEAKER) [address] [place] [address] BASIC METABOLIC PANELon 12-23 Anion gap [Moles/Vol] 9 mmol/L Normal 7-20 [facility] Comment on above: Performed By: #### L [id number] #### [facility] ([facility]) [address] [place] [address] Calcium [Mass/Vol] 8.3 mg/dL Low 8.6-10.3 [facility] Comment on above: Performed By: #### L [id number] #### [facility] ([facility]) [address] [place] [address] Chloride [Moles/Vol] 103 mmol/L Normal 98-107 [facility] Comment on above: Performed By: #### L [id number] #### [facility] ([facility]) [address] [place] [address] CO2 [Moles/Vol] 26 mmol/L Normal 21-31 [facility] Comment on above: Performed By: #### L [id number] #### [facility] ([facility]) [address] [place] [address] Creatinine [Mass/Vol] 0.81 mg/dL Normal 0.70-1.30 [facility] Comment on above: Performed By: #### L [id number] #### [facility] ([facility]) [address] [place] [address] GLOMERULAR FILTRATION RATE ML/MIN/1.73 SQ M.PREDICTED 95.4 mL/min/1.73m*2 Normal >60.0 [facility] Comment on above: Result Comment: [facility]???s estimated glomerular filtration rate (eGFR) [...] group of individuals. Performed By: #### L [id number] #### [facility] ([facility]) [address] [place] [address] Glucose [Mass/Vol] 105 mg/dL High 70-100 [facility] Comment on above: Performed By: #### L [id number] #### [facility] ([facility]) [address] [place] [address] Potassium [Moles/Vol] 4.1 mmol/L Normal 3.5-5.1 [facility] Comment on above: Performed By: #### L [id number] #### [facility] ([facility]) [address] [place] [address] Sodium [Moles/Vol] 134 mmol/L Low 136-145 [facility] Comment on above: Performed By: #### L [id number] #### [facility] ([facility]) [address] [facility] [address] Urea nitrogen [Mass/Vol] 18 mg/dL Normal 7-25 [facility] Comment on above: Performed By: #### L [id number] #### [facility] ([facility]) [address] [address] UREA NITROGEN/CREATININE (MASS RATIO) IN SER/PLAS 22.2 Normal [facility] Comment on above: Performed By: #### L [id number] #### [facility] ([facility]) [address] [place] [address] CBC WITH AUTO DIFFERENTIALon 01-11-2025 Basophils (Bld) [#/Vol] 0.08 10*3/uL Normal 0.00-0.20 [facility] Comment on above: Performed By: #### L [id number] #### [facility] ([facility]) [address] [place] [address] Basophils/100 WBC (Bld) 0.9 % Normal 0.0-1.0 [facility] Comment on above: Performed By: #### L [id number] #### [facility] ([facility]) [address] [place] [address] Eosinophils (Bld) [#/Vol] 0.56 10*3/uL High 0.00-0.50 [facility] Comment on above: Performed By: #### L [id number] #### [facility] ([facility]) [address] [place] [address] Eosinophils/100 WBC (Bld) 6.5 % High 0.0-6.0 [facility] Comment on above: Performed By: #### L [id number] #### [facility] ([facility]) [address] [place] [address] Erythrocyte distribution width (RBC) [Ratio] 13.5 % Normal 11.5-15.0 [facility] Comment on above: Performed By: #### L [id number] #### [facility] ([facility]) [address] [place] [address] ERYTHROCYTE MEAN CORPUSCULAR HEMOGLOBIN CONCENTRATION (G/DL) BY AUTOMATED 32.7 g/dL Normal 32.0-35.0 [facility] Comment on above: Performed By: #### L [id number] #### [facility] ([facility]) [address] [place] [address] Hematocrit (Bld) [Volume fraction] 39.8 % Normal 39.0-55.0 [facility] Comment on above: Performed By: #### L [id number] #### [facility] ([facility]) [address] [place] [address] Hemoglobin (Bld) [Mass/Vol] 13.0 g/dL Normal 13.0-17.0 [facility] Comment on above: Performed By: #### L [id number] #### [facility] ([facility]) [address] [place] [address] Immature granulocytes (Bld) [#/Vol] 0.06 10*3/uL Normal 0.00-0.20 [facility] Comment on above: Performed By: #### L [id number] #### [facility] (BEAKER) [address] [place] [address] Immature granulocytes/100 WBC (Bld) 0.7 % Normal 0.0-1.0 [facility] Comment on above: Performed By: #### L [id number] #### [facility] (BEAKER) [address] [place] [address] Lymphocytes (Bld) [#/Vol] 1.53 10*3/uL Normal 1.20-4.00 [facility] Comment on above: Performed By: #### L [id number] #### [facility] (BEAKER) [address] [facility] [place] [address] Lymphocytes/100 WBC (Bld) 17.7 % Low 20.0-45.0 [facility] Comment on above: Performed By: #### L [id number] #### [facility] (BEAKER) [address] [place] [address] MCH (RBC) [Entitic mass] 33.3 pg High 27.0-33.0 [facility] Comment on above: Performed By: #### L [id number] #### [facility] (BEAKER) [address] [place] [address] MCV (RBC) [Entitic vol] 102.1 fL High 82.0-98.0 [facility] Comment on above: Performed By: #### L [id number] #### [facility] (BEAKER) [address] [place] [address] Monocytes (Bld) [#/Vol] 0.78 10*3/uL Normal 0.10-1.00 [facility] Comment on above: Performed By: #### L [id number] #### [facility] (BEAKER) [address] [place] [address] Monocytes/100 WBC (Bld) 9.0 % Normal 5.0-12.0 [facility] Comment on above: Performed By: #### L [id number] #### [facility] (BEAKER) [address] [place] [address] Neutrophils (Bld) [#/Vol] 5.62 10*3/uL Normal 1.60-7.60 [facility] Comment on above: Performed By: #### L [id number] #### [facility] ([facility]) [address] [place] [address] Neutrophils/100 WBC (Bld) 65.2 % Normal 40.0-72.0 [facility] Comment on above: Performed By: #### L [id number] #### [facility] ([facility]) [address] [place] [address] NRBC (PER 100 WBCS) BY AUTOMATED COUNT 0.0 % Normal 0 [facility] Comment on above: Performed By: #### Matthew [id number] #### [facility] ([facility]) [address] [place] [address] PLATELETS (10*3/UL) IN BLOOD AUTOMATED COUNT 187 10*3/uL Normal 150-400 [facility] Comment on above: Performed By: #### Matthew [id number] #### [facility] ([facility]) [address] [place] [address] RBC (Bld) [#/Vol] 3.90 10*6/uL Low 4.20-5.70 [facility] Comment on above: Performed By: #### L [id number] #### [facility] ([facility]) [address] [place] [address] WBC (Bld) [#/Vol] 8.63 10*3/uL Normal 4.00-10.60 [facility] Comment on above: Performed By: #### L [id number] #### [facility] ([facility]) [address] [place] [address] CONSULTon 01-11-2025 CONSULT -- Attestation signed by [...] at least mild coronary artery disease at [facility]. Considering his current presentation we will obtain an echocardiogram. He already underwent cardiac angiogram on 01/11 which showed moderate but heavily calcified triple-vessel disease. He will also need aggressive medical therapy with aspirin, statin and likely colchicine as well in light of the recently published COL C OT trial. Darrell Sinclair MD, ScM, MSc Cardiac Monitor Technician Email: [email or web address] Card[facility] Consult Note Reason for Consult: unstable angina HPI: Nazario Cortes is a 69 y.o. male with a past medical history significant for reported coronary artery disease (last cath showed 20-30% stenosis in 2008 at [facility]), hyperlipidemia, depression, and seizures. Reported tumor involving [...] chest pain. He was initially brought to [facility] and subsequently transferred to [facility] for cardiac catheterization. At present, the patient reports mild chest pain but denies shortness of breath, nausea, vomiting, dizziness, or palpitations. He reports a smoking history but quit in 1996. Blood pressure 142/84, heart rate 70s, EKG sinus rhythm with 1st degree AV block CT interval 210. Cardiology ROS: Negative except as mentioned. Past Medical History He has a past medical history of Bladder cancer ([facility]), Cholelithiasis, Colon polyp, Depression, Dyslipidemia, Hearing [...] 40 mg, oral, Daily PRN HYDROcodone-acetaminop hen ([place]) 5-325 mg tablet take 1 tablet by mouth four times a day if needed for severe pain for up to 7 days meclizine (Antivert) 25 mg tablet take 1 tablet by mouth four times a day if needed for dizziness methocarbamol (Robaxin) 750 mg tablet take 1 tablet by mouth four times a day if needed for muscle spasm kcydgbpyrbjr-iolh-qdhw rals-folic acid (Multivitamin 50 Plus) tablet Every 24 hours nitroglycerin (NITROSTAT) 0.3 mg, sublingual PHENobarbital (LUMINAL) 64.8 mg, oral, 3 times daily RT phenytoin ER (Dilantin) 100 mg capsule take 2 capsules by mouth three times a day potassium chloride CR (K-Tab) 20 mEq ER table (more content not included)... Normal [facility] HPon 01-11-2025 HP -- Attestation signed by [...] me. Additional Comments: Arnaud Lyons MD, MPH, [facility], [facility], [facility] Interventional Cardiology Pager Email: [email or web address] H&P reviewed. The patient was examined and there are no changes to the H&P. Will proceed with coronary angiogram for further assessment. Procedure's details, risks and benefits discussed with the patient and he's agreeable. Normal [facility] PLATELET COUNTon 02-21-2025 PLATELETS (10*3/UL) IN BLOOD AUTOMATED COUNT 177 10*3/uL Normal 150-400 [facility] Comment on above: Performed By: #### L [id number] #### [facility] ([facility]) [address] [place] [address] TROPONIN Ion 01-11-2025 Troponin I.cardiac [Mass/Vol] 0.01 ng/mL Normal 0.00-0.04 [facility] Comment on above: Performed By: #### L [id number] #### [facility] ([facility]) [address] [place] [address] Troponin I.cardiac [Mass/Vol] 0.01 ng/mL Normal 0.00-0.04 [facility] Comment on above: Performed By: #### L [id number] #### [facility] ([facility]) [address] [place] [address] Troponin I.cardiac [Mass/Vol] 0.01 ng/mL Normal 0.00-0.04 [facility] Comment on above: Performed By: #### L [id number] #### [facility] ([facility]) [address] [place] [address] No Panel InformationOrdered By: Fay Adhikari on 11-27-2024 [facility] Radiology Study observation (narrative) [facility] XR knee RT 4V*on 10-17-2024 XR knee RT 4V* [facility] [place] [address] XRay Report Signed Patient: Nazario Cortes Jr MR#: [id number] : 1955 Acct:[id number] Age/Sex: 69 / M ADM Date: 10/17/24 Loc: XDUCLY Room: Type: [facility] Attending Dr: Yancy Lawson APRN Copies [...] Hoa Lockwood M.D.10/17/2024 2:40 PM Dictation Location: [facility]--23 Transcribed By: [facility] 10/17/24 1440 Dictated By: Hoa Lockwood MD 10/17/24 1438 Signed By: 10/17/24 1440 Normal [facility] XR knee RT 4V*on 09-07-2024 XR knee RT 4V* [facility] Main [place] [address] [place] [address] XRay Report Signed Patient: Nazario Cortes Jr MR#: [id number] : 1955 Acct:[id number] Age/Sex: 69 / M ADM Date: 09/07/24 Loc: XDUCLY Room: Type: [facility] Attending Dr: Joslyn Garcia FUND DIRECTOR Copies to: Joslyn Garcia APRN Ordering Provider: [...] Ching Jr., D.OKellie09/07/2024 4:15 PM Dictation Location: [facility]--15 Transcribed By: [facility] 09/07/24 1615 Dictated By: Bar Ching Jr DO 09/07/24 161 Signed By: 09/07/24 161 Normal [facility] Influenza virus A and B and SARS-CoV-2 (COVID-19) RNA panel - Respiratory system specon 08-16-2024 Influenza virus A and B RNA and SARS-CoV-2 (COVID-19) N gene panel ALEX+probe (Resp) Negative [facility] - Microbiology an d Antimicrobial susceptibilityon 08-16-2024 SARS-CoV-2 (COVID-19) RNA ALEX+probe Ql (Unsp spec) Negative [facility] No Panel Informationon 08-16 POC Influenza B (ALEX) Negative [facility] Follow-Upon 08-08-2024 Follow-Up [id number] Nazario Cortes 1955 M Date Provider Department Center 08/08/2024 148-TRACIE [facility] Second Fl Family History Problem Relation Age of Onset Supraventricular tachycardia Mother Stroke Father Kidney cancer Sister Diabetes Sister COPD Brother Family Status - Relation Status Age at Mother Father Sister Brother Level of Service:27721 CT OFFICE/OUTPATIENT ESTABLISHED MOD MDM 30 MIN Reason for Visit and Comments: Follow-up [203796] - Pt is here for a follow up visit for Lumbar Stenosis. Normal [facility] 36on 07-30-2024 36 Talked to [...] ongoing issues. Verbalizes understanding. Normal [facility] Telephoneon 07-30-2024 Telephone [id number] Nazario Cortes 1955 M Date Provider Department Center 07/30/2024 148-TRACIE [facility] Second Fl Family History Problem Relation Age of Onset Supraventricular tachycardia Mother Stroke Father Kidney cancer Sister Diabetes Sister COPD Brother Family Status - Relation Status Age at Mother Father Sister Brother Normal [facility] MR CERVICAL SPINE W AND WO C [facility] 07-26-2024 MR CERVICAL SPINE W [...] Not Vldtd Invalid Interpretation Code [facility] XR elbow LT min 3V*on 2023 XR elbow LT min 3V* [facility] Main [place] [address] [place], [place] [id number] XRay Report Signed Patient: Nazario Cortes Jr MR#: [id number] : 1955 Acct:[id number] Age/Sex: 69 / M ADM Date: 05/15/24 Loc: XDUCLY Room: Type: [facility] Attending Dr: Joslyn Garcia APRN Copies [...] Zain Fitzpatrick M.D.05/15/2024 4:23 PM Dictation Location: [place] [address] Transcribed By: [facility] 05/15/24 1623 Dictated By: Zain Fitzpatrick DO 05/15/24 1621 Signed By: 05/15/24 1623 Normal [facility] Orders Onlyon 04-11-2024 Orders Only [id number] Nazario Cortes 1955 M Date Provider Department [place] 04/11/2024 [id number], HISTORICAL [facility] Humberto [facility] Family History Problem Relation Age of Onset Supraventricular tachycardia Mother Stroke Father Kidney cancer Sister Diabetes Sister COPD Brother Family Status - Relation Status Age at Mother Father Sister Brother Normal [facility] US CAROTID ART BILon 023 [...] KELL BLANDON Date: 2023-01-11 08:42 Normal [facility] ECHOCARDIO M/2D COMPLETEon 0 01-07-2023 ECHOCARDIO M/2D COMPLETE Patient: NAZARIO CORTES Exam Date: 01/07/2023 : 1955 Gender:M Ordering : DR JIGNESH GONSALEZ . Admission #: [id number] Family : Order #: [id number] CLICK HERE TO VIEW EXAM ECHOCARDIOGRAM REPORT [...] M.D. on 01/11/2023 at 18:23 Normal [facility] XR ELBOW LT MIN 3 VIEWSon XR [...] left radial head fracture. Electronically authenticated by: [employer] Date: 2022-12-24 20:23 Normal [facility] XR HIP LT 2 3V W PELVISon XR HIP LT 2 3V W PELVIS EXAM: XR HIP LT 2 3V W PELVIS HISTORY: Bone injury COMPARISON: None. TECHNIQUE: 3 views of the left hip FINDINGS: No acute fracture is seen. Joint alignment is normal. Joint spaces are preserved. Soft tissues appear unremarkable. IMPRESSION: No acute fracture or malalignment. Electronically authenticated by: [employer] Date: 2022-12-24 20:21 Normal [facility] XR HUMERUS LT MIN 2Von 12-24 [...] KELL DELANEY Date: 2022-12-24 21:03 Normal [facility] CBC AUTO DIFFon 11-04-2022 BASO # 0.1 103/ul Normal 0.0-0.1 [facility] Comment on above: Performed By: #### B MP, CMREP, LIPID #### [facility] [address] [place] [address] Dr. Jeimy Tenorio Basophils/100 WBC (Bld) 0.9 % Normal 0.2-2.0 [facility] Comment on above: Performed By: #### B MP, CMREP, LIPID #### [facility] [address] [place] [address] Dr. Jeimy Tenorio EO # 0.3 103/ul Normal 0.0-0.7 [facility] Comment on above: Performed By: #### B MP, CMREP, LIPID #### [facility] [address] [place] [address] Dr. Jeimy Tenorio Eosinophils/100 WBC (Bld) 5.2 % Normal 0.9-7.0 [facility] Comment on above: Performed By: #### B MP, CMREP, LIPID #### [facility] [address] [place] [address] Dr. Jeimy Tenorio Erythrocyte distribution width (RBC) [Ratio] 12.9 % Normal 11.0-15.0 [facility] Comment on above: Performed By: #### B MP, CMREP, LIPID #### [facility] [address] [place] [address] Dr. Jeimy Tenorio Hematocrit (Bld) [Volume fraction] 39.5 % Critically low 42.0-54.0 [facility] Comment on above: Performed By: #### B MP, CMREP, LIPID #### [facility] [address] [place] [address] Dr. Jeimy Tenorio Hemoglobin (Bld) [Mass/Vol] 13.1 g/dL Critically low 14.0-18.0 [facility] Comment on above: Performed By: #### B MP, CMREP, LIPID #### [facility] [address] [address] [address] Jeimy Tenorio IG # 0.03 10e3/ul Normal 0.00-0.03 [facility] Comment on above: Performed By: #### B MP, CMREP, LIPID #### [facility] [address] [place] [address] Dr. Jeimy Tenorio IG % 0.5 % Normal 0.0-0.5 [facility] Comment on above: Performed By: #### B MP, CMREP, LIPID #### [facility] [address] [place] [address] Dr. Jeimy Tenorio LYMPH # 1.5 103/ul Normal 1.2-3.8 [facility] Comment on above: Performed By: #### B MP, CMREP, LIPID #### [facility] [address] [place] [address] Dr. Jeimy Tenorio Lymphocytes/100 WBC (Bld) 22.6 % Normal 20.5-60.0 [facility] Comment on above: Performed By: #### B MP, CMREP, LIPID #### [facility] [address] [place] [address] Dr. Jeimy Tenorio MANUAL DIFF REQ NO Normal [facility] Comment on above: Performed By: #### B MP, CMREP, LIPID #### [facility] [address] [place] [address] Dr. Jeimy Tenorio MCH (RBC) [Entitic mass] 32.8 pg Normal 25.9-34.0 [facility] Comment on above: Performed By: #### B MP, CMREP, LIPID #### [facility] [address] [place] [address] Dr. Jeimy Tenorio MCHC (RBC) [Mass/Vol] 33.2 g/dL Normal 29.9-35.2 [facility] Comment on above: Performed By: #### B MP, CMREP, LIPID #### [facility] [address] [place] [address] Dr. Jeimy Tenorio MCV (RBC) [Entitic vol] 99.0 fL Critically high 80.0-94.0 [facility] Comment on above: Performed By: #### B MP, CMREP, LIPID #### [facility] [address] [place] [address] Dr. Jeimy Tenorio MONO # 0.7 103/ul Normal 0.3-0.8 [facility] Comment on above: Performed By: #### B MP, CMREP, LIPID #### [facility] [address] [place] [address] Dr. Jeimy Tenorio Monocytes/100 WBC (Bld) 10.6 % Normal 1.7-12.0 [facility] Comment on above: Performed By: #### B MP, CMREP, LIPID #### [facility] [address] [place] [address] Dr. Jeimy Tenorio NEUT # 4.0 103/ul Normal 1.4-6.5 [facility] Comment on above: Performed By: #### B MP, CMREP, LIPID #### [facility] [address] [place] [address] Dr. Jeimy Tenorio Neutrophils/100 WBC (Bld) 60.2 % Normal 43.0-75.0 [facility] Comment on above: Performed By: #### B MP, CMREP, LIPID #### [facility] [address] [place] [address] Dr. Jeimy Tenorio Platelet mean volume (Bld) [Entitic vol] 9.7 fL Normal 9.5-13.5 [facility] Comment on above: Performed By: #### B MP, CMREP, LIPID #### [facility] [address] [place] [address] Dr. Jeimy Tenorio PLT 176 103/ul Normal 150-450 [facility] Comment on above: Performed By: #### B MP, CMREP, LIPID #### [facility] [address] [place] [address] Dr. Jeimy Tenorio RBC 3.99 106/ul Critically low 4.70-6.10 [facility] Comment on above: Performed By: #### B MP, CMREP, LIPID #### [facility] [address] [place] [address] Dr. Jeimy Tenorio WBC 6.6 103/ul Normal 4.0-11.0 [facility] Comment on above: Performed By: #### B MP, CMREP, LIPID #### [facility] [address] HEAD WO CONon [...] ALEJANDRO PINEDA Date: 2022-11-04 14:08 Normal [facility]21 SARS-CoV-2 (COVID-19) RNA ALEX+probe Ql (Unsp spec) Not detected Normal NOT DETECTED [facility] Comment on above: Result Comment: This test is not yet approved or cleared by the [place] FDA. When there are no FDA-approved or cleared tests available, and other criteria are met, FDA can make tests available under an emergency access mechanism called an Emergency Use Authorization (EUA). The EUA for this test is supported by the [place] of [employer] and Human Service's (HHS's) declaration [...] By: #### B MP, CMREP, LIPID #### [facility] [address] [place] [address] Dr. Jeimy Tenorio INFLUENZA A AND B [facility] 11-04 [facility] SEE BELOW Normal [facility] Comment on above: Result Comment: Nega tive for Flu A protein angiten. Infection due to Flu A cannot be ruled out. Flu A angiten in the sample may be below the detection limit of the test. Performed By: #### I NFLUAB #### [facility] [address] [place] [address] Dr. Jeimy Tenorio INFLUBNEGH SEE BELOW Normal [facility] Comment on above: Result Comment: Nega tive for Flu B protein antigen. Infection due to Flu B cannot be ruled out. Flu B antigen in the sample may be below the detection limit of the test. Performed By: #### I NFLUAB #### [facility] [address] [place] [address] Dr. Jeimy Tenorio INFLUENZA A AG Negative Normal NEGATIVE SEE COMMENT [facility] Comment on above: Performed By: #### I NFLUAB #### [facility] [address] [place] [address] Dr. Jeimy Tenorio INFLUENZA B AG Negative Normal NEGATIVE SEE COMMENT [facility] Comment on above: Performed By: #### I NFLUAB #### [facility] [address] [place] [address] Dr. Jeimy Tenorio INTERNAL CONTROLS Within Normal Limits Normal Wi thin Normal Limits [facility] Comment on above: Performed By: #### I NFLUAB #### [facility] [address] [place] [address] Dr. Jeimy Tenorio PROF CHEM 8 (BAS METB)on Anion gap [Moles/Vol] 9.7 mmol/L Normal [facility] Comment on above: Performed By: #### C BC #### [facility] [address] [place] [address] Dr. Jeimy Tenorio Calcium [Mass/Vol] 8.0 mg/dL Critically low 8.5-10.1 [facility] Comment on above: Performed By: #### C BC #### [facility] [address] [place] [address] Dr. Jeimy Tenorio Chloride [Moles/Vol] 104 mmol/L Normal 98-107 [facility] Comment on above: Performed By: #### C BC #### [facility] [address] [place] [address] Dr. Jeimy Tenorio CO2 [Moles/Vol] 31.1 mmol/L Normal 21.0-32.0 [facility] Comment on above: Performed By: #### C BC #### [facility] [address] [place] [address] Dr. Jeimy Tenorio Creatinine [Mass/Vol] 0.75 mg/dL Normal 0.70-1.30 [facility] Comment on above: Performed By: #### C BC #### [facility] [address] [place] [address] Dr. Jeimy Tenorio EGFR-AF PALESTINIAN >60 Normal >=60 [facility] Comment on above: Performed By: #### C BC #### [facility] [address] [place] [address] Dr. Jeimy Tenorio EGFR-NON AF PALESTINIAN >60 Normal >=60 [facility] Comment on above: Performed By: #### C BC #### [facility] [address] [place] [address] Dr. Jeimy Tenorio Glucose [Mass/Vol] 76 mg/dL Normal 74-106 [facility] Comment on above: Performed By: #### C BC #### [facility] [address] [place] [address] Dr. Jeimy Tenorio Potassium [Moles/Vol] 3.8 mmol/L Normal 3.5-5.1 [facility] Comment on above: Performed By: #### C BC #### [facility] [address] [place] [address] Dr. Jeimy Tenorio Sodium [Moles/Vol] 141 mmol/L Normal 136-145 [facility] Comment on above: Performed By: #### C BC #### [facility] [address] [place] [address] Dr. Jeimy Tenorio Urea nitrogen [Mass/Vol] 12.0 mg/dL Normal 7.0-18.0 [facility] Comment on above: Performed By: #### C BC #### [facility] [address] [place] [address] Dr. Jeimy Tenorio Urea nitrogen/Creatinine [Mass ratio] 16.0 mg/mg Normal [facility] Comment on above: Performed By: #### C BC #### [facility] [address] [place] [address] Dr. Jeimy Tenorio TROPONIN, HIGH SENSITIVITYon 11-04-2022 HSTROP 5.8 pg/mL Normal 4.0-76.1 [facility] Comment on above: Result Comment: CUT- OFF POINTS HAVE BEEN ESTABLISHED BASED ON THE FOURTH UNIVERSAL DEFINITIONS OF MYOCARDIAL INFARCTION. THE UPPER REFERENCE LIMIT (URL) OF TROPONIN, DEFINED THE 99TH PERCENTILE OF cTnI DISTRIBUTION IN A REFERENCE POPULATION, HAS BEEN CONFIRMED THE DECISION THRESHOLD FOR MD DIAGNOSIS. Performed By: #### C BC #### [facility] [address] [place] [address] Dr. Jeimy Tenorio CBC AUTO DIFFon 09-29-2022 BASO # 0.1 103/ul Normal 0.0-0.1 [facility] Comment on above: Performed By: #### B MP, CMREP, LIPID #### [facility] [address] [place] [address] Dr. Jeimy Tenorio Basophils/100 WBC (Bld) 1.2 % Normal 0.2-2.0 [facility] Comment on above: Performed By: #### B MP, CMREP, LIPID #### [facility] [address] [place] [address] Dr. Jeimy Tenorio EO # 0.3 103/ul Normal 0.0-0.7 [facility] Comment on above: Performed By: #### B MP, CMREP, LIPID #### [facility] [address] [place] [address] Dr. Jeimy Tenorio Eosinophils/100 WBC (Bld) 4.9 % Normal 0.9-7.0 [facility] Comment on above: Performed By: #### B MP, CMREP, LIPID #### [facility] [address] [place] [address] Dr. Jeimy Tenorio Erythrocyte distribution width (RBC) [Ratio] 13.2 % Normal 11.0-15.0 [facility] Comment on above: Performed By: #### B MP, CMREP, LIPID #### [facility] [address] [place] [address] Dr. Jeimy Tenorio Hematocrit (Bld) [Volume fraction] 42.3 % Normal 42.0-54.0 [facility] Comment on above: Performed By: #### B MP, CMREP, LIPID #### [facility] [address] [place] [address] Dr. Jeimy Tenorio Hemoglobin (Bld) [Mass/Vol] 13.8 g/dL Critically low 14.0-18.0 [facility] Comment on above: Performed By: #### B MP, CMREP, LIPID #### [facility] [address] [place] [address] Dr. Jeimy Tenorio IG # 0.02 10e3/ul Normal 0.00-0.03 [facility] Comment on above: Performed By: #### B MP, CMREP, LIPID #### [facility] [address] [place] [address] Dr. Jeimy Tenorio IG % 0.3 % Normal 0.0-0.5 [facility] Comment on above: Performed By: #### B MP, CMREP, LIPID #### [facility] [address] [place] [address] Dr. Jeimy Tenorio LYMPH # 1.3 103/ul Normal 1.2-3.8 [facility] Comment on above: Performed By: #### B MP, CMREP, LIPID #### [facility] [address] [place] [address] Dr. Jeimy Tenorio Lymphocytes/100 WBC (Bld) 19.5 % Critically low 20.5-60.0 [facility] Comment on above: Performed By: #### B MP, CMREP, LIPID #### [facility] [address] [place] [address] Dr. Jeimy Tenorio MANUAL DIFF REQ NO Normal [facility] Comment on above: Performed By: #### B MP, CMREP, LIPID #### [facility] [address] [place] [address] Dr. Jeimy Tenorio MCH (RBC) [Entitic mass] 32.9 pg Normal 25.9-34.0 [facility] Comment on above: Performed By: #### B MP, CMREP, LIPID #### [facility] [address] [place] [address] Dr. Jeimy Tenorio MCHC (RBC) [Mass/Vol] 32.6 g/dL Normal 29.9-35.2 [facility] Comment on above: Performed By: #### B MP, CMREP, LIPID #### [facility] [address] [place] [address] Dr. Jeimy Tenorio MCV (RBC) [Entitic vol] 100.7 fL Critically high 80.0-94.0 [facility] Comment on above: Performed By: #### B MP, CMREP, LIPID #### [facility] [address] [place] [address] Dr. Jeimy Tenorio MONO # 0.7 103/ul Normal 0.3-0.8 [facility] Comment on above: Performed By: #### B MP, CMREP, LIPID #### [facility] [address] [place] [address] Dr. Jeimy Tenorio Monocytes/100 WBC (Bld) 9.9 % Normal 1.7-12.0 [facility] Comment on above: Performed By: #### B MP, CMREP, LIPID #### [facility] [address] [place] [address] Dr. Jeimy Tenorio NEUT # 4.3 103/ul Normal 1.4-6.5 [facility] Comment on above: Performed By: #### B MP, CMREP, LIPID #### [facility] [address] [address] [address] Jeimy Tenorio Neutrophils/100 WBC (Bld) 64.2 % Normal 43.0-75.0 [facility] Comment on above: Performed By: #### B MP, CMREP, LIPID #### [facility] [address] [address] [address] Jeimy Tenorio Platelet mean volume (Bld) [Entitic vol] 10.4 fL Normal 9.5-13.5 [facility] Comment on above: Performed By: #### B MP, CMREP, LIPID #### [facility] [address] [place] [address] Dr. Jeimy Tenorio PLT 209 103/ul Normal 150-450 [facility] Comment on above: Performed By: #### B MP, CMREP, LIPID #### [facility] [address] [place] [address] Dr. Jeimy Tenorio RBC 4.20 106/ul Critically low 4.70-6.10 [facility] Comment on above: Performed By: #### B MP, CMREP, LIPID #### [facility] [address] [place] [address] Dr. Jeimy Tenorio WBC 6.7 103/ul Normal 4.0-11.0 [facility] Comment on above: Performed By: #### B MP, CMREP, LIPID #### [facility] [address] [place] [address] Dr. Jeimy Tenorio DILANTINon 09-29-2022 Phenytoin [Mass/Vol] 23.7 ug/mL Critically high 10.0-20.0 [facility] Comment on above: Performed By: #### C BC #### [facility] [address] [place] [address] Dr. Jeimy Tenorio GLYCOHEMOGLOBIN A1Con 2021 ADA RECOMMENDATION SEE BELOW Normal [facility] Comment on above: Result Comment: ADA RECOMMENDED LIMIT 4.0 - 6.0 ADA THERAPEUTIC TARGET < 7.0 ACTION SUGGESTED > 7.0 Performed By: #### A 1C #### [facility] [address] [address] [address] Jeimy Tenorio Glucose [Mass/Vol] 105 mg/dL Normal [facility] Comment on above: Performed By: #### A 1C #### [facility] [address] [address] [address] Jeimy Tenorio HbA1c (Bld) [Mass fraction] 5.3 % Normal 4.5-6.2 [facility] Comment on above: Performed By: #### A 1C #### [facility] [address] [place] [address] Dr. Jeimy Tenorio LIPID PROFILEon 09-29-2022 CHOL-HDL RATIO NORM SEE BELOW Normal [facility] Comment on above: Result Comment: 3.3 - 4.4 LOW RISK 4.4 - 7.1 AVERAGE RISK 7.1 - 11.0 MODERATE RISK >11.0 HIGH RISK Performed By: #### B MP, CMREP, LIPID #### [facility] [address] [place] [address] Dr. Jeimy Tenorio Cholesterol [Mass/Vol] 178 mg/dL Normal <=200 [facility] Comment on above: Performed By: #### B MP, CMREP, LIPID #### [facility] [address] [place] [address] Dr. Jeimy Tenorio Cholesterol in HDL [Mass/Vol] 56 mg/dL Normal 40-60 [facility] Comment on above: Performed By: #### B MP, CMREP, LIPID #### [facility] [address] [place] [address] Dr. Jeimy Tenorio Cholesterol in LDL [Mass/Vol] 86.8 mg/dL Normal [facility] Comment on above: Performed By: #### B MP, CMREP, LIPID #### [facility] [address] [place] [address] Dr. Jeimy Tenorio Cholesterol.total/Cho lesterol in HDL [Mass ratio] 3.2 {ratio} Normal [facility] Comment on above: Performed By: #### B MP, CMREP, LIPID #### [facility] [address] [address] [address] Jeimy Tenorio HDL NORMAL > or = 60 mg/dl - LO W CARDIOVASCULAR RISK <40 mg/dl - HIGH CARDIOVASCULAR RISK Normal [facility] Comment on above: Performed By: #### B MP, CMREP, LIPID #### [facility] [address] [address] [address] Jeimy Tenorio LDL CALC NORMAL SEE BELOW Normal [facility] Comment on above: Result Comment: <100 mg/dl OPTIMAL 100 - 129 mg/dl NEAR OR ABOVE OPTIMAL 130 - 159 mg/dl BORDERLINE HIGH 160 - 189 mg/dl HIGH >190 mg/dl VERY HIGH Performed By: #### B MP, CMREP, LIPID #### [facility] [address] [address] [address] Jeimy Tenorio Triglyceride [Mass/Vol] 176 mg/dL Critically high <=150 [facility] Comment on above: Performed By: #### B MP, CMREP, LIPID #### [facility] [address] [address] [address] Jeimy Tenorio VLDL CALC 35.2 mg/dL Normal [facility] Comment on above: Performed By: #### B MP, CMREP, LIPID #### [facility] [address] [address] [address] Jeimy Tenorio LIVER PROFILEon 09-29-2022 Albumin [Mass/Vol] 3.5 g/dL Normal 3.4-5.0 [facility] Comment on above: Performed By: #### B MP, CMREP, LIPID #### [facility] [address] [address] [address] Jeimy Tenorio Albumin/Globulin [Mass ratio] 0.8 {ratio} Normal [facility] Comment on above: Performed By: #### B MP, CMREP, LIPID #### [facility] [address] [address] [address] Jeimy Tenorio ALP [Catalytic activity/Vol] 139 U/L Critically high 46-116 [facility] Comment on above: Performed By: #### B MP, CMREP, LIPID #### [facility] [address] [address] [address] Jeimy Tenorio ALT [Catalytic activity/Vol] 25 U/L Normal 16-63 [facility] Comment on above: Performed By: #### B MP, CMREP, LIPID #### [facility] [address] [address] [address] Jeimy Tenorio AST [Catalytic activity/Vol] 23 U/L Normal 15-37 [facility] Comment on above: Performed By: #### B MP, CMREP, LIPID #### [facility] [address] [place] [address] Dr. Jeimy Tenorio BILI, CONJUGATED 0.0 mg/dL Normal 0.0-0.2 [facility] Comment on above: Performed By: #### B MP, CMREP, LIPID #### [facility] [address] [place] [address] Dr. Jeimy Tenorio Bilirubin [Mass/Vol] 0.3 mg/dL Normal 0.2-1.0 [facility] Comment on above: Performed By: #### B MP, CMREP, LIPID #### [facility] [address] [place] [address] Dr. Jeimy Tenorio Globulin (S) [Mass/Vol] 4.3 g/dL Normal [facility] Comment on above: Performed By: #### B MP, CMREP, LIPID #### [facility] [address] [place] [address] Dr. Jeimy Tenorio Protein [Mass/Vol] 7.8 g/dL Normal 6.4-8.2 [facility] Comment on above: Performed By: #### B MP, CMREP, LIPID #### [facility] [address] [place] [address] Dr. Jeimy Tenorio PROF CHEM 8 (BAS METB)on Anion gap [Moles/Vol] 8.7 mmol/L Normal [facility] Comment on above: Performed By: #### B MP, CMREP, LIPID #### [facility] [address] [place] [address] Dr. Jeimy Tenorio Calcium [Mass/Vol] 8.7 mg/dL Normal 8.5-10.1 [facility] Comment on above: Performed By: #### B MP, CMREP, LIPID #### [facility] [address] [place] [address] Dr. Jeimy Tenorio Chloride [Moles/Vol] 104 mmol/L Normal 98-107 [facility] Comment on above: Performed By: #### B MP, CMREP, LIPID #### [facility] [address] [place] [address] Dr. Jeimy Tenorio CO2 [Moles/Vol] 29.8 mmol/L Normal 21.0-32.0 [facility] Comment on above: Performed By: #### B MP, CMREP, LIPID #### [facility] [address] [place] [address] Dr. Jeimy Tenorio Creatinine [Mass/Vol] 0.76 mg/dL Normal 0.70-1.30 [facility] Comment on above: Performed By: #### B MP, CMREP, LIPID #### [facility] [address] [place] [address] Dr. Jeimy Tenorio EGFR-AF PALESTINIAN >60 Normal >=60 [facility] Comment on above: Performed By: #### B MP, CMREP, LIPID #### [facility] [address] [place] [address] Dr. Jeimy Tenorio EGFR-NON AF PALESTINIAN >60 Normal >=60 [facility] Comment on above: Performed By: #### B MP, CMREP, LIPID #### [facility] [address] [place] [address] Dr. Jeimy Tenorio Glucose [Mass/Vol] 95 mg/dL Normal 74-106 [facility] Comment on above: Performed By: #### B MP, CMREP, LIPID #### [facility] [address] [place] [address] Dr. Jeimy Tenorio Potassium [Moles/Vol] 4.5 mmol/L Normal 3.5-5.1 [facility] Comment on above: Performed By: #### B MP, CMREP, LIPID #### [facility] [address] [place] [address] Dr. Jeimy Tenorio Sodium [Moles/Vol] 138 mmol/L Normal 136-145 [facility] Comment on above: Performed By: #### B MP, CMREP, LIPID #### [facility] [address] [address] [address] Jeimy Tenorio Urea nitrogen [Mass/Vol] 18.0 mg/dL Normal 7.0-18.0 [facility] Comment on above: Performed By: #### B MP, CMREP, LIPID #### [facility] [address] [address] [address] Jeimy Tenorio Urea nitrogen/Creatinine [Mass ratio] 23.7 mg/mg Normal [facility] Comment on above: Performed By: #### B MP, CMREP, LIPID #### [facility] [address] [address] [address] Jeimy Tenorio TSHon 09-29-2022 TSH 1.694 uIU/mL Normal 0.358-3.740 [facility] Comment on above: Performed By: #### B MP, CMREP, LIPID #### [facility] [address] [address] [address] Jeimy Tenorio CARDIAC SAWYER 3-6on 2 CK [Catalytic activity/Vol] 47 U/L Normal 39-308 [facility] Comment on above: Performed By: #### B MP, CMREP, LIPID #### [facility] [address] [address] [address] Jeimy Tenorio CK.MB [Mass/Vol] 0.77 ng/mL Normal <=3.60 [facility] Comment on above: Performed By: #### B MP, CMREP, LIPID #### [facility] [address] [address] [address] Jeimy Tenorio HSTROP 6.9 pg/mL Normal 4.0-76.1 [facility] Comment on above: Result Comment: CUT- OFF POINTS HAVE BEEN ESTABLISHED BASED ON THE FOURTH UNIVERSAL DEFINITIONS OF MYOCARDIAL INFARCTION. THE UPPER REFERENCE LIMIT (URL) OF TROPONIN, DEFINED THE 99TH PERCENTILE OF cTnI DISTRIBUTION IN A REFERENCE POPULATION, HAS BEEN CONFIRMED THE DECISION THRESHOLD FOR MD DIAGNOSIS. Performed By: #### B MP, CMREP, LIPID #### [facility] [address] [address] [address] Jeimy Tenorio CK [Catalytic activity/Vol] 53 U/L Normal 39-308 [facility] Comment on above: Performed By: #### C BC #### [facility] [address] [place] [address] Dr. Jeimy Tenorio CK.MB [Mass/Vol] 0.80 ng/mL Normal <=3.60 [facility] Comment on above: Performed By: #### C BC #### [facility] [address] [place] [address] Dr. Jeimy Tenorio HSTROP 6.2 pg/mL Normal 4.0-76.1 [facility] Comment on above: Result Comment: CUT- OFF POINTS HAVE BEEN ESTABLISHED BASED ON THE FOURTH UNIVERSAL DEFINITIONS OF MYOCARDIAL INFARCTION. THE UPPER REFERENCE LIMIT (URL) OF TROPONIN, DEFINED THE 99TH PERCENTILE OF cTnI DISTRIBUTION IN A REFERENCE POPULATION, HAS BEEN CONFIRMED THE DECISION THRESHOLD FOR MD DIAGNOSIS. Performed By: #### C BC #### [facility] [address] [place] [address] Dr. Jeimy Tenorio CBC AUTO DIFFon 06-12-2022 BASO # 0.1 103/ul Normal 0.0-0.1 [facility] Comment on above: Performed By: #### C BC #### [facility] [address] [place] [address] Dr. Jeimy Tenorio Basophils/100 WBC (Bld) 0.9 % Normal 0.2-2.0 [facility] Comment on above: Performed By: #### C BC #### [facility] [address] [place] [address] Dr. Jeimy Tenorio EO # 0.3 103/ul Normal 0.0-0.7 [facility] Comment on above: Performed By: #### C BC #### [facility] [address] [place] [address] Dr. Jeimy Tenorio Eosinophils/100 WBC (Bld) 5.2 % Normal 0.9-7.0 [facility] Comment on above: Performed By: #### C BC #### [facility] [address] [place] [address] Dr. Jeimy Tenorio Erythrocyte distribution width (RBC) [Ratio] 13.0 % Normal 11.0-15.0 [facility] Comment on above: Performed By: #### C BC #### [facility] [address] [place] [address] Dr. Jeimy Tenorio Hematocrit (Bld) [Volume fraction] 39.1 % Critically low 42.0-54.0 [facility] Comment on above: Performed By: #### C BC #### [facility] [address] [place] [address] Dr. Jeimy Tenorio Hemoglobin (Bld) [Mass/Vol] 13.2 g/dL Critically low 14.0-18.0 [facility] Comment on above: Performed By: #### C BC #### [facility] [address] [place] [address] Dr. Jeimy Tenorio IG # 0.03 10e3/ul Normal 0.00-0.03 [facility] Comment on above: Performed By: #### C BC #### [facility] [address] [place] [address] Dr. Jeimy Tenorio IG % 0.5 % Normal 0.0-0.5 [facility] Comment on above: Performed By: #### C BC #### [facility] [address] [place] [address] Dr. Jeimy Tenorio LYMPH # 1.7 103/ul Normal 1.2-3.8 [facility] Comment on above: Performed By: #### C BC #### [facility] [address] [place] [address] Dr. Jeimy Tenorio Lymphocytes/100 WBC (Bld) 26.0 % Normal 20.5-60.0 [facility] Comment on above: Performed By: #### C BC #### [facility] [address] [place] [address] Dr. Jeimy Tenorio MANUAL DIFF REQ NO Normal [facility] Comment on above: Performed By: #### C BC #### [facility] [address] [place] [address] Dr. Jeimy Tenorio MCH (RBC) [Entitic mass] 33.2 pg Normal 25.9-34.0 [facility] Comment on above: Performed By: #### C BC #### [facility] [address] [place] [address] Dr. Jeimy Tenorio MCHC (RBC) [Mass/Vol] 33.8 g/dL Normal 29.9-35.2 [facility] Comment on above: Performed By: #### C BC #### [facility] [address] [place] [address] Dr. Jeimy Tenorio MCV (RBC) [Entitic vol] 98.5 fL Critically high 80.0-94.0 [facility] Comment on above: Performed By: #### C BC #### [facility] [address] [place] [address] Dr. Jeimy Tenorio MONO # 0.8 103/ul Normal 0.3-0.8 [facility] Comment on above: Performed By: #### C BC #### [facility] [address] [place] [address] Dr. Jeimy Tenorio Monocytes/100 WBC (Bld) 12.2 % Critically high 1.7-12.0 [facility] Comment on above: Performed By: #### C BC #### [facility] [address] [place] [address] Dr. Jeimy Tenorio NEUT # 3.6 103/ul Normal 1.4-6.5 [facility] Comment on above: Performed By: #### C BC #### [facility] [address] [place] [address] Dr. Jeimy Tenorio Neutrophils/100 WBC (Bld) 55.2 % Normal 43.0-75.0 [facility] Comment on above: Performed By: #### C BC #### [facility] [address] [place] [address] Dr. Jeimy Tenorio Platelet mean volume (Bld) [Entitic vol] 9.9 fL Normal 9.5-13.5 [facility] Comment on above: Performed By: #### C BC #### [facility] [address], [place] [address] Dr. Jeimy Tenorio PLT 174 103/ul Normal 150-450 [facility] Comment on above: Performed By: #### C BC #### [facility] [address], [place] [address] Dr. Jeimy Tenorio RBC 3.97 106/ul Critically low 4.70-6.10 [facility] Comment on above: Performed By: #### C BC #### [facility] [address], [place] [address] Dr. Jeimy Tenorio WBC 6.5 103/ul Normal 4.0-11.0 [facility] Comment on above: Performed By: #### C BC #### [facility] [address], [place] [address] Dr. Jeimy Tenorio CTA CHEST WO W [...] MAMIE ALFORD Date: 2022-06-12 00:21 Normal [facility] Covid-19 PCR (CVDTB)on 05-22 SARS-CoV-2 (COVID-19) RNA ALEX+probe Ql (Unsp spec) Not detected Normal NOT DETECTED [facility] Comment on above: Result Comment: When [...] for this test is supported by the Emergency Crew Supervisor of Health and Human Service's declaration that [...] By: #### B MP, CMREP, LIPID #### [facility] [address] [place] [address] Dr. Jeimy Tenorio ER URINE PROFILEon 2 Bilirubin Ql (U) Negative Normal NEGATIVE [facility] Comment on above: Performed By: #### E RUR #### [facility] [address] [place] [address] Dr. Jeimy Tenorio Clarity (U) CLEAR Normal CLEAR [facility] Comment on above: Performed By: #### E RUR #### [facility] [address] [place] [address] Dr. Jeimy Tenorio Color (U) LT. YELLOW Normal YELLOW [facility] Comment on above: Performed By: #### E RUR #### [facility] [address] [place], [place] [id number] Dr. Jeimy BALES A micrscopic examination will be performed if indicated. Normal [facility] Comment on above: Performed By: #### E RUR #### [facility] [address] [place] [address] Dr. Jeimy Tenorio Glucose Ql (U) Negative Normal NEGATIVE [facility] Comment on above: Performed By: #### E RUR #### [facility] [address] [place] [address] Dr. Jeimy Tenorio Hemoglobin Ql (U) Negative Normal NEGATIVE [facility] Comment on above: Performed By: #### E RUR #### [facility] [address] [place] [address] Dr. Jeimy Tenorio Ketones Ql (U) TRACE Abnormal NEGATIVE [facility] Comment on above: Performed By: #### E RUR #### [facility] [address] [place] [address] Dr. Jeimy Tenorio LEUKOCYTES Negative Normal NEGATIVE [facility] Comment on above: Performed By: #### E RUR #### [facility] [address] [place] [address] Dr. Jeimy Tenorio Nitrite Ql (U) Negative Normal NEGATIVE [facility] Comment on above: Performed By: #### E RUR #### [facility] [address] [place] [address] Dr. Jeimy Tenorio pH (U) 5.5 [pH] Normal 5-9 [facility] Comment on above: Performed By: #### E RUR #### [facility] [address] [place] [address] Dr. Jeimy Tenorio SPEC GRAVITY 1.010 Normal 1.005-<=1.02 5 [facility] Comment on above: Performed By: #### E RUR #### [facility] [address] [place] [address] Dr. Jeimy Tenorio UA PROTEIN Negative Normal NEGATIVE/ TRACE [facility] Comment on above: Performed By: #### E RUR #### [facility] [address] [place] [address] Dr. Jeimy Tenorio UR MICRO IND NOT INDICATED Normal [facility] Comment on above: Performed By: #### E RUR #### [facility] [address] [address] [address] Jeimy Tenorio Urobilinogen Qn (U) 0.2 {Raphael'U}/dL Normal 0.2 - 1. 0 [facility] Comment on above: Performed By: #### E RUR #### [facility] [address] [address] [address] Jeimy Tenorio GLYCOHEMOGLOBIN A1Con 2021 ADA RECOMMENDATION SEE BELOW Normal [facility] Comment on above: Result Comment: ADA RECOMMENDED LIMIT 4.0 - 6.0 ADA THERAPEUTIC TARGET < 7.0 ACTION SUGGESTED > 7.0 Performed By: #### C BC #### [facility] [address] [place] [address] Dr. Jeimy Tenorio Glucose [Mass/Vol] 103 mg/dL Normal [facility] Comment on above: Performed By: #### C BC #### [facility] [address] [place] [address] Dr. Jeimy Tenorio HbA1c (Bld) [Mass fraction] 5.2 % Normal 4.5-6.2 [facility] Comment on above: Performed By: #### C BC #### [facility] [address] [place] [address] Dr. Jeimy Tenorio LIPID PROFILEon 06-12-2022 CHOL-HDL RATIO NORM SEE BELOW Normal [facility] Comment on above: Result Comment: 3.3 - 4.4 LOW RISK 4.4 - 7.1 AVERAGE RISK 7.1 - 11.0 MODERATE RISK >11.0 HIGH RISK Performed By: #### B MP, CMREP, LIPID #### [facility] [address] [place] [address] Dr. Jeimy Tenorio Cholesterol [Mass/Vol] 142 mg/dL Normal <=200 [facility] Comment on above: Performed By: #### B MP, CMREP, LIPID #### [facility] [address] [place] [address] Dr. Jeimy Tenorio Cholesterol in HDL [Mass/Vol] 49 mg/dL Normal 40-60 [facility] Comment on above: Performed By: #### B MP, CMREP, LIPID #### [facility] [address] [address] [address] Jeimy Tenorio Cholesterol in LDL [Mass/Vol] 64.6 mg/dL Normal [facility] Comment on above: Performed By: #### B MP, CMREP, LIPID #### [facility] [address] [address] [address] Jeimy Tenorio Cholesterol.total/Cho lesterol in HDL [Mass ratio] 2.9 {ratio} Normal [facility] Comment on above: Performed By: #### B MP, CMREP, LIPID #### [facility] [address] [address] [address] Jeimy Tenorio HDL NORMAL > or = 60 mg/dl - LO W CARDIOVASCULAR RISK <40 mg/dl - HIGH CARDIOVASCULAR RISK Normal [facility] Comment on above: Performed By: #### B MP, CMREP, LIPID #### [facility] [address] [place] [address] Dr. Jeimy Tenorio LDL CALC NORMAL SEE BELOW Normal [facility] Comment on above: Result Comment: <100 mg/dl OPTIMAL 100 - 129 mg/dl NEAR OR ABOVE OPTIMAL 130 - 159 mg/dl BORDERLINE HIGH 160 - 189 mg/dl HIGH >190 mg/dl VERY HIGH Performed By: #### B MP, CMREP, LIPID #### [facility] [address] [address] [address] Jeimy Tenorio Triglyceride [Mass/Vol] 142 mg/dL Normal <=150 [facility] Comment on above: Performed By: #### B MP, CMREP, LIPID #### [facility] [address] [address] [address] Jeimy Tenorio VLDL CALC 28.4 mg/dL Normal [facility] Comment on above: Performed By: #### B MP, CMREP, LIPID #### [facility] [address] [address] [address] Jeimy Tenorio PROF CHEM 8 (BAS METB)on Anion gap [Moles/Vol] 10.1 mmol/L Normal [facility] Comment on above: Performed By: #### B MP, CMREP, LIPID #### [facility] [address] [place] [address] Dr. Jeimy Tenorio Calcium [Mass/Vol] 8.0 mg/dL Critically low 8.5-10.1 [facility] Comment on above: Performed By: #### B MP, CMREP, LIPID #### [facility] [address] [place] [address] Dr. Jeimy Tenorio Chloride [Moles/Vol] 104 mmol/L Normal 98-107 [facility] Comment on above: Performed By: #### B MP, CMREP, LIPID #### [facility] [address] [place] [address] Dr. Jeimy Tenorio CO2 [Moles/Vol] 27.0 mmol/L Normal 21.0-32.0 [facility] Comment on above: Performed By: #### B MP, CMREP, LIPID #### [facility] [address] [place] [address] Dr. Jeimy Tenorio Creatinine [Mass/Vol] 0.79 mg/dL Normal 0.70-1.30 [facility] Comment on above: Performed By: #### B MP, CMREP, LIPID #### [facility] [address] [place] [address] Dr. Jeimy Tenorio EGFR-AF PALESTINIAN >60 Normal >=60 [facility] Comment on above: Performed By: #### B MP, CMREP, LIPID #### [facility] [address] [place] [address] Dr. Jeimy Tenorio EGFR-NON AF PALESTINIAN >60 Normal >=60 [facility] Comment on above: Performed By: #### B MP, CMREP, LIPID #### [facility] [address] [place] [address] Dr. Jeimy Tenorio Glucose [Mass/Vol] 101 mg/dL Normal 74-106 [facility] Comment on above: Performed By: #### B MP, CMREP, LIPID #### [facility] [address] [place] [address] Dr. Jeimy Tenorio Potassium [Moles/Vol] 4.1 mmol/L Normal 3.5-5.1 [facility] Comment on above: Performed By: #### B MP, CMREP, LIPID #### [facility] [address] [address] [address] Jeimy Tenorio Sodium [Moles/Vol] 137 mmol/L Normal 136-145 [facility] Comment on above: Performed By: #### B MP, CMREP, LIPID #### [facility] [address] [address] [address] Jeimy Tenorio Urea nitrogen [Mass/Vol] 15.0 mg/dL Normal 7.0-18.0 [facility] Comment on above: Performed By: #### B MP, CMREP, LIPID #### [facility] [address] [place] [address] Dr. Jeimy Tenorio Urea nitrogen/Creatinine [Mass ratio] 19.0 mg/mg Normal [facility] Comment on above: Performed By: #### B MP, CMREP, LIPID #### [facility] [address] [place] [address] Dr. Jeimy Tenorio CARDIAC SAWYER ADMITon 022 CK [Catalytic activity/Vol] 50 U/L Normal 39-308 [facility] Comment on above: Performed By: #### C BC #### [facility] [address] [place] [address] Dr. Jeimy Tenorio CK.MB [Mass/Vol] 0.80 ng/mL Normal <=3.60 [facility] Comment on above: Performed By: #### C BC #### [facility] [address] [place] [address] Dr. Jeimy Tenorio HSTROP 5.2 pg/mL Normal 4.0-76.1 [facility] Comment on above: Result Comment: CUT- OFF POINTS HAVE BEEN ESTABLISHED BASED ON THE FOURTH UNIVERSAL DEFINITIONS OF MYOCARDIAL INFARCTION. THE UPPER REFERENCE LIMIT (URL) OF TROPONIN, DEFINED THE 99TH PERCENTILE OF cTnI DISTRIBUTION IN A REFERENCE POPULATION, HAS BEEN CONFIRMED THE DECISION THRESHOLD FOR MD DIAGNOSIS. Performed By: #### C BC #### [facility] [address] [place] [address] Dr. Jeimy Tenorio MAGALIE 41 ng/mL Normal 16-96 [facility] Comment on above: Performed By: #### C BC #### [facility] [address] [place] [address] Dr. Jeimy Tenorio CBC AUTO DIFFon 06-11-2022 BASO # 0.0 103/ul Normal 0.0-0.1 [facility] Comment on above: Performed By: #### C BC #### [facility] [address] [place] [address] Dr. Jeimy Tenorio Basophils/100 WBC (Bld) 0.6 % Normal 0.2-2.0 [facility] Comment on above: Performed By: #### C BC #### [facility] [address] [place] [address] Dr. Jeimy Tenorio EO # 0.4 103/ul Normal 0.0-0.7 [facility] Comment on above: Performed By: #### C BC #### [facility] [address] [place] [address] Dr. Jeimy Tenorio Eosinophils/100 WBC (Bld) 4.9 % Normal 0.9-7.0 [facility] Comment on above: Performed By: #### C BC #### [facility] [address] [place] [address] Dr. Jeimy Tenorio Erythrocyte distribution width (RBC) [Ratio] 13.1 % Normal 11.0-15.0 [facility] Comment on above: Performed By: #### C BC #### [facility] [address] [place] [address] Dr. Jeimy Tenorio Hematocrit (Bld) [Volume fraction] 38.1 % Critically low 42.0-54.0 [facility] Comment on above: Performed By: #### C BC #### [facility] [address] [place] [address] Dr. Jeimy Tenorio Hemoglobin (Bld) [Mass/Vol] 13.0 g/dL Critically low 14.0-18.0 [facility] Comment on above: Performed By: #### C BC #### [facility] [address] [place] [address] Dr. Jeimy Tenorio IG # 0.02 10e3/ul Normal 0.00-0.03 [facility] Comment on above: Performed By: #### C BC #### [facility] [address] [place] [address] Dr. Jeimy Tenorio IG % 0.3 % Normal 0.0-0.5 [facility] Comment on above: Performed By: #### C BC #### [facility] [address] [place] [address] Dr. Jeimy Tenorio LYMPH # 1.7 103/ul Normal 1.2-3.8 [facility] Comment on above: Performed By: #### C BC #### [facility] [address] [place] [address] Dr. Jeimy Tenorio Lymphocytes/100 WBC (Bld) 22.9 % Normal 20.5-60.0 [facility] Comment on above: Performed By: #### C BC #### [facility] [address] [place] [address] Dr. Jeimy Tenorio MANUAL DIFF REQ NO Normal [facility] Comment on above: Performed By: #### C BC #### [facility] [address] [place] [address] Dr. Jeimy Tenorio MCH (RBC) [Entitic mass] 33.5 pg Normal 25.9-34.0 [facility] Comment on above: Performed By: #### C BC #### [facility] [address] [place] [address] Dr. Jeimy Tenorio MCHC (RBC) [Mass/Vol] 34.1 g/dL Normal 29.9-35.2 [facility] Comment on above: Performed By: #### C BC #### [facility] [address] [place] [address] Dr. Jeimy Tenorio MCV (RBC) [Entitic vol] 98.2 fL Critically high 80.0-94.0 [facility] Comment on above: Performed By: #### C BC #### [facility] [address] [place] [address] Dr. Jeimy Tenorio MONO # 0.8 103/ul Normal 0.3-0.8 [facility] Comment on above: Performed By: #### C BC #### [facility] [address] [place] [address] Dr. Jeimy Tenorio Monocytes/100 WBC (Bld) 11.5 % Normal 1.7-12.0 [facility] Comment on above: Performed By: #### C BC #### [facility] [address] [place] [address] Dr. Jeimy Tenorio NEUT # 4.3 103/ul Normal 1.4-6.5 [facility] Comment on above: Performed By: #### C BC #### [facility] [address] [place] [address] Dr. Jeimy Tenorio Neutrophils/100 WBC (Bld) 59.8 % Normal 43.0-75.0 [facility] Comment on above: Performed By: #### C BC #### [facility] [address] [place] [address] Dr. Jeimy Tenorio Platelet mean volume (Bld) [Entitic vol] 9.8 fL Normal 9.5-13.5 [facility] Comment on above: Performed By: #### C BC #### [facility] [address] [place] [address] Dr. Jeimy Tenorio PLT 181 103/ul Normal 150-450 [facility] Comment on above: Performed By: #### C BC #### [facility] [address] [place] [address] Dr. Jeimy Tenorio RBC 3.88 106/ul Critically low 4.70-6.10 [facility] Comment on above: Performed By: #### C BC #### [facility] [address] [place] [address] Dr. Jeimy Tenorio WBC 7.2 103/ul Normal 4.0-11.0 [facility] Comment on above: Performed By: #### C BC #### [facility] [address] [place] [address] Dr. Jeimy Tenorio D-DIMERon 06-11-2022 D-DIMER 0.63 mg/L FEU Critically high <=0.59 [facility] Comment on above: Performed By: #### D DIM #### [facility] [address] [place] [address] Dr. Jeimy Tenorio D-DIMER COMMENTS SEE BELOW Normal [facility] Comment on above: [...] hospitalization. Performed By: #### D DIM #### [facility] [address] [place] [address] Dr. Jeimy Tenorio PROF 14(COMP METB)on 022 Albumin [Mass/Vol] 3.3 g/dL Critically low 3.4-5.0 [facility] Comment on above: Performed By: #### C BC #### [facility] [address] [place] [address] Dr. Jeimy Tenorio Albumin/Globulin [Mass ratio] 0.8 {ratio} Normal [facility] Comment on above: Performed By: #### C BC #### [facility] [address] [place] [address] Dr. Jeimy Tenorio ALP [Catalytic activity/Vol] 160 U/L Critically high 46-116 [facility] Comment on above: Performed By: #### C BC #### [facility] [address] [place] [address] Dr. Jeimy Tenorio ALT [Catalytic activity/Vol] 26 U/L Normal 16-63 [facility] Comment on above: Performed By: #### C BC #### [facility] [address] [place] [address] Dr. Jeimy Tenorio Anion gap [Moles/Vol] 10.4 mmol/L Normal [facility] Comment on above: Performed By: #### C BC #### [facility] [address] [address] [address] Jeimy Tenorio AST [Catalytic activity/Vol] 16 U/L Normal 15-37 [facility] Comment on above: Performed By: #### C BC #### [facility] [address] [address] [address] Jeimy Tenorio Bilirubin [Mass/Vol] 0.2 mg/dL Normal 0.2-1.0 [facility] Comment on above: Performed By: #### C BC #### [facility] [address] [place] [address] Dr. Jeimy Tenorio Calcium [Mass/Vol] 8.2 mg/dL Critically low 8.5-10.1 [facility] Comment on above: Performed By: #### C BC #### [facility] [address] [place] [address] Dr. Jeimy Tenorio Chloride [Moles/Vol] 105 mmol/L Normal 98-107 [facility] Comment on above: Performed By: #### C BC #### [facility] [address] [place] [address] Dr. Jeimy Tenorio CO2 [Moles/Vol] 26.5 mmol/L Normal 21.0-32.0 [facility] Comment on above: Performed By: #### C BC #### [facility] [address] [place] [address] Dr. Jeimy Tenorio Creatinine [Mass/Vol] 0.96 mg/dL Normal 0.70-1.30 [facility] Comment on above: Performed By: #### C BC #### [facility] [address] [place] [address] Dr. Jeimy Tenorio EGFR-AF PALESTINIAN >60 Normal >=60 [facility] Comment on above: Performed By: #### C BC #### [facility] [address] [place] [address] Dr. Jeimy Tenorio EGFR-NON AF PALESTINIAN >60 Normal >=60 [facility] Comment on above: Performed By: #### C BC #### [facility] [address] [place] [address] Dr. Jeimy Tenorio Globulin (S) [Mass/Vol] 4.0 g/dL Normal [facility] Comment on above: Performed By: #### C BC #### [facility] [address] [address] [address] Jeimy Tenorio Glucose [Mass/Vol] 140 mg/dL Critically high 74-106 [facility] Comment on above: Performed By: #### C BC #### [facility] [id number] Jeimy Tenorio Potassium [Moles/Vol] 3.9 mmol/L Normal 3.5-5.1 [facility] Comment on above: Performed By: #### C BC #### [facility] [address] [address] [address] Jeimy Tenorio Protein [Mass/Vol] 7.3 g/dL Normal 6.4-8.2 [facility] Comment on above: Performed By: #### C BC #### [facility] [address] [place] [address] Dr. Jeimy Tenorio Sodium [Moles/Vol] 138 mmol/L Normal 136-145 [facility] Comment on above: Performed By: #### C BC #### [facility] [address] [place] [address] Dr. Jeimy Tenorio Urea nitrogen [Mass/Vol] 15.0 mg/dL Normal 7.0-18.0 [facility] Comment on above: Performed By: #### C BC #### [facility] [id number] Jeimy Tenorio Urea nitrogen/Creatinine [Mass ratio] 15.6 mg/mg Normal [facility] Comment on above: Performed By: #### C BC #### [facility] [id number] Jeimy Tenorio COMPREHENSIVE METABOLIC PANE Braxton 10-30-2021 Albumin [Mass/Vol] 4.3 g/dL Normal 3.6-5.1 [facility] Comment on above: Performed By: #### 7 13, 4280, 35209 #### [facility] [address], [address] [place] [address] It Service Manager: Yash Campuzano MD Albumin/Globulin [Mass ratio] 1.3 {ratio} Normal 1.0-2.5 [facility] Comment on above: Performed By: #### 7 13, 7600, 63262 #### [facility] of [address] [address] It Service Manager: Yash Campuzano MD ALP [Catalytic activity/Vol] 152 U/L High 35-144 [facility] Comment on above: Performed By: #### 7 13, 7600, 44230 #### [facility] [address] [address] It Service Manager: Yash Campuzano MD ALT [Catalytic activity/Vol] 30 U/L Normal 9-46 [facility] Comment on above: Performed By: #### 7 13, 7599, 28086 #### [facility] of [address], [address] [place] [address] It Service Manager: Yash Campuzano MD AST [Catalytic activity/Vol] 26 U/L Normal 10-35 [facility] Comment on above: Performed By: #### 7 13, 0, 08494 #### [facility] [address] [address] It Service Manager: Yash Campuzano MD Bilirubin [Mass/Vol] 0.4 mg/dL Normal 0.2-1.2 [facility] Comment on above: Performed By: #### 7 13, 7599, 75512 #### [facility] [address] [address] It Service Manager: Yash Campuzano MD BUN/CREATININE RATIO NOT APPLICABLE Normal 6-22 [facility] Comment on above: Performed By: #### 7 13, 760, 40492 #### [facility] [address] [place] [address] It Service Manager: Yash Campuzano MD Calcium [Mass/Vol] 8.8 mg/dL Normal 8.6-10.3 [facility] Comment on above: Performed By: #### 7 13, 7600, 36226 #### [facility] of [address], [address] [place] [address] It Service Manager: Yash Campuzano MD Chloride [Moles/Vol] 104 mmol/L Normal 98-110 [facility] Comment on above: Performed By: #### 7 13, 7600, 19726 #### [facility] [address], [address] [place] [address] It Service Manager: Yash Campuzano MD CO2 [Moles/Vol] 25 mmol/L Normal 20-32 [facility] Comment on above: Performed By: #### 7 13, 760, 65599 #### [facility] [address], [address] [place] [address] It Service Manager: Yash Campuzano MD Creatinine [Mass/Vol] 0.76 mg/dL Normal 0.70-1.[address] [facility] Comment on above: Result Comment: For patients >49 years of age, the reference limit for Creatinine is approximately 13% higher for people identified as -[place]. Performed By: #### 7 13, 0, 97076 #### [facility] [address], [address] [place] [address] It Service Manager: Yash Campuzano MD eGFR NON-AFR. PALESTINIAN 95 mL/min/1.73m2 Normal > OR = 60 [facility] Comment on above: Performed By: #### 7 13, 0, 86927 #### [facility] [address] [address] It Service Manager: Yash Campuzano MD GFR/1.73 sq M.predicted among blacks MDRD (S/P/Bld) [Vol rate/Area] 110 mL/min/{1.73_m2} Normal > OR = 60 [facility] Comment on above: Performed By: #### 7 13, 7600, 70476 #### [facility] of [address], [address] [place] [address] It Service Manager: Yash Campuzano MD Globulin (S) [Mass/Vol] 3.2 g/dL Normal 1.9-3.7 [facility] Comment on above: Performed By: #### 7 , 7599, 72495 #### [facility] [address] [place] [address] It Service Manager: aYsh Campuzano MD Glucose [Mass/Vol] 103 mg/dL High 65-99 [facility] Comment on above: Result Comment: Fasting reference interval For someone without known diabetes, a glucose value between 100 and 125 mg/dL is consistent with prediabetes and should be confirmed with a follow-up test. Performed By: #### 7 13, 7599, 64487 #### [facility] [address] [place] [address] It Service Manager: Yash Campuzano MD Potassium [Moles/Vol] 4.7 mmol/L Normal 3.5-5.[address] [facility] Comment on above: Performed By: #### 7 , 7599, 76163 #### [facility] [place] [address] It Service Manager: Yash Campuzano MD Protein [Mass/Vol] 7.5 g/dL Normal 6.1-8.1 [facility] Comment on above: Performed By: #### 7 , 7599, 96462 #### [facility] [address] [place] [address] It Service Manager: Yash Campuzano MD Sodium [Moles/Vol] 137 mmol/L Normal 135-146 [facility] Comment on above: Performed By: #### 7 , 7599, 85604 #### [facility] [place] [address] It Service Manager: Yash Campuzano MD Urea nitrogen [Mass/Vol] 15 mg/dL Normal 7-25 [facility] Comment on above: Performed By: #### 7 , 7599, 73277 #### [facility] [address] [place] [address] It Service Manager: Yash Campuzano MD LIPID PANEL, [facility] 10-21 Cholesterol [Mass/Vol] 180 mg/dL Normal <200 [facility] Comment on above: Order Comment: FASTI NG:YES FASTING: YES Performed By: #### 7 13, 7380, 60947 #### [facility] [address], [address] [place], [place] [id number] It Service Manager: Yash Campuzano MD Cholesterol in HDL [Mass/Vol] 50 mg/dL Normal > OR = 40 [facility] Comment on above: Order Comment: FASTI NG:YES FASTING: YES Performed By: #### 7 , 451, 46737 #### [facility] [address], [address] [place] [address] It Service Manager: Yash Campuzano MD Cholesterol in LDL [Mass/Vol] [...] LDL-C. Gennaro SS et al. KO. 2013;310(19): 1323-2359 (http://education.Tagbrand/faq/YHQ533) Performed By: #### 7 , 583, 87617 #### [facility] [address], [address] [place] [address] It Service Manager: Yash Campuzano MD Cholesterol.total/Cho lesterol in HDL [Mass ratio] 3.6 {ratio} Normal <5.0 [facility] Comment on above: Order Comment: FASTI NG:YES FASTING: YES Performed By: #### 7 , 4600, 02896 #### [facility] [address], [address] [place], [place] [id number] It Service Manager: Yash Campuzano MD NON HDL CHOLESTEROL 130 mg/dL (calc) High <130 [facility] Comment on above: Order Comment: FASTI NG:YES FASTING: YES Result Comment: For patients with diabetes plus 1 major ASCVD risk factor, treating to a non-HDL-C goal of <100 mg/dL (LDL-C of <70 mg/dL) is considered a therapeutic option. Performed By: #### 7 , 7599, 48802 #### [facility] [place] [address] It Service Manager: Yash Campuzano MD Triglyceride [Mass/Vol] 280 mg/dL High <150 [facility] Comment on above: Order Comment: FASTI NG:YES FASTING: YES Result Comment: If a non-fasting specimen was collected, consider repeat triglyceride testing on a fasting specimen if clinically indicated. Camarillo et al. J. of Clin. Lipidol. 2015;9:129-169. Performed By: #### 7 , 7599, 76279 #### [facility] [place] [address] It Service Manager: Yash Campuzano MD PHENYTOINon 10-30-2021 Phenytoin [Mass/Vol] 18.9 ug/mL Normal 10.0-20.0 [facility] Comment on above: Performed By: #### 7 , 7599, 87516 #### [facility] [place] [address] It Service Manager: Yash Campuzano MD CBC (INCLUDES DIFF/PLT)on Basophils (Bld) [#/Vol] 0.071 10*3/uL Normal 0-200 [facility] Comment on above: Performed By: #### 7 , 7599, 6699 #### [facility] [place] [address] It Service Manager: Yash Campuzano MD Basophils/100 WBC (Bld) 1.2 % Normal [facility] Comment on above: Performed By: #### 7 , 7599, 0499 #### [facility] [place] [address] It Service Manager: Yash Campuzano MD Eosinophils (Bld) [#/Vol] 0.277 10*3/uL Normal 15-500 [facility] Comment on above: Performed By: #### 7 , 7599, 6399 #### [facility] of [place] [address] It Service Manager: Yash Campuzano MD Eosinophils/100 WBC (Bld) 4.7 % Normal [facility] Comment on above: Performed By: #### 7 , 7599, 6399 #### [facility] [place] [address] It Service Manager: Yash Campuzano MD Erythrocyte distribution width (RBC) [Ratio] 12.8 % Normal 11.0-15.0 [facility] Comment on above: Performed By: #### 7 , 7599, 6399 #### [facility] [place] [address] It Service Manager: Yash Campuzano MD Hematocrit (Bld) [Volume fraction] 42.1 % Normal 38.5-50.0 [facility] Comment on above: Performed By: #### 7 , 7599, 6399 #### [facility] [place] [address] It Service Manager: Yash Campuzano MD Hemoglobin (Bld) [Mass/Vol] 14.9 g/dL Normal 13.2-17.1 [facility] Comment on above: Performed By: #### 7 , 7599, 6399 #### [facility] of [place] [address] It Service Manager: Yash Campuzano MD Lymphocytes (Bld) [#/Vol] 1.068 10*3/uL Normal 850-3900 [facility] Comment on above: Performed By: #### 7 , 7599, 6399 #### [facility] of [place] [address] It Service Manager: Yash Campuzano MD Lymphocytes/100 WBC (Bld) 18.1 % Normal [facility] Comment on above: Performed By: #### 7 , 7600, 6399 #### [facility] of [address], [address] [place] [address] It Service Manager: Yash Campuzano MD MCH (RBC) [Entitic mass] 32.9 pg Normal 27.0-33.0 [facility] Comment on above: Performed By: #### 7 13, 760, 6399 #### [facility] of [address], [address] [place] [address] It Service Manager: Yash Campuzano MD MCHC (RBC) [Mass/Vol] 35.4 g/dL Normal 32.0-36.[address] [facility] Comment on above: Performed By: #### 7 13, 7599, 6399 #### [facility] of [place] [address] It Service Manager: Yash Campuzano MD MCV (RBC) [Entitic vol] 92.9 fL Normal 80.0-100.0 [facility] Comment on above: Performed By: #### 7 , 7599, 6399 #### [facility] of [place] [address] It Service Manager: Yash Campuzano MD Monocytes (Bld) [#/Vol] 0.531 10*3/uL Normal 200-950 [facility] Comment on above: Performed By: #### 7 , 7599, 6399 #### [facility] of [place] [address] It Service Manager: Yash Campuzano MD Monocytes/100 WBC (Bld) 9.0 % Normal [facility] Comment on above: Performed By: #### 7 13, 7599, 6399 #### [facility] of [place] [address] It Service Manager: Yash Campuzano MD Neutrophils (Bld) [#/Vol] 3.953 10*3/uL Normal 8832-3687 [facility] Comment on above: Performed By: #### 7 , 7599, 6399 #### [facility] of [place] [id number] It Service Manager: Yash Campuzano MD Neutrophils/100 WBC (Bld) 67 % Normal [facility] Comment on above: Performed By: #### 7 13, 7599, 6399 #### [facility] of [address], [address] [place] [address] It Service Manager: Yash Campuzano MD Platelet mean volume (Bld) [Entitic vol] 11.0 fL Normal 7.5-12.5 [facility] Comment on above: Performed By: #### 7 13, 7599, 6399 #### [facility] of [address], [address] [place] [address] It Service Manager: Yash Campuzano MD Platelets (Bld) [#/Vol] 200 10*3/uL Normal 140-400 [facility] Comment on above: Performed By: #### 7 13, 7599, 6399 #### [facility] of [address], [address] [place] [address] It Service Manager: Yash Campuzano MD RBC (Bld) [#/Vol] 4.53 10*6/uL Normal 4.20-5.80 [facility] Comment on above: Performed By: #### 7 13, 7599, 6399 #### [facility] of [address], [address] [place] [address] It Service Manager: Yash Campuzano MD WBC (Bld) [#/Vol] 5.9 10*3/uL Normal 3.8-10.8 [facility] Comment on above: Performed By: #### 7 , 7599, 6399 #### [facility] of [address], [address] [place] [address] It Service Manager: Yash Campuzano MD LIPID PANEL, [facility] 03-22 Cholesterol [Mass/Vol] 218 mg/dL High <200 [facility] Comment on above: Order Comment: FASTI NG:YES FASTING: YES Performed By: #### 7 , 7599, 6399 #### [facility] of [address], [address] [place], [place] [address] It Service Manager: Yash Campuzano MD Cholesterol in HDL [Mass/Vol] 55 mg/dL Normal > OR = 40 [facility] Comment on above: Order Comment: FASTI NG:YES FASTING: YES Performed By: #### 7 , 519, 2122 #### [facility] [address], [address] [place] [address] It Service Manager: Yash Campuzano MD Cholesterol in LDL [Mass/Vol] [...] LDL-C. Gennaro SS et al. KO. 2013;310(19): 2258-7155 (http://education.Contents First.ImpactRx/faq/RLK015) Performed By: #### 7 , 278, 4483 #### [facility] [place] [address] It Service Manager: Yash Campuzano MD Cholesterol.total/Cho lesterol in HDL [Mass ratio] 4.0 {ratio} Normal <5.0 [facility] Comment on above: Order Comment: FASTI NG:YES FASTING: YES Performed By: #### 7 , 897, 3489 #### [facility] [address], [address] [place] [address] It Service Manager: Yash Campuzano MD NON HDL CHOLESTEROL 163 mg/dL (calc) High <130 [facility] Comment on above: Order Comment: FASTI NG:YES FASTING: YES Result Comment: For patients with diabetes plus 1 major ASCVD risk factor, treating to a non-HDL-C goal of <100 mg/dL (LDL-C of <70 mg/dL) is considered a therapeutic option. Performed By: #### 7 , 164, 8852 #### [facility] [address], [address] [place] [address] It Service Manager: Yash Campuzano MD Triglyceride [Mass/Vol] 200 mg/dL High <150 [facility] Comment on above: Order Comment: FASTI NG:YES FASTING: YES Result Comment: If a non-fasting specimen was collected, consider repeat triglyceride testing on a fasting specimen if clinically indicated. Marquise et al. J. of Clin. Lipidol. 2015;9:129-169. Performed By: #### 7 13, 7600, 6399 #### [facility] [address], [address] [place] [address] It Service Manager: Yash Campuzano MD PHENYTOINon 04-18-2021 Phenytoin [Mass/Vol] 25.0 ug/mL High 10.0-20.0 [facility] Comment on above: Performed By: #### 7 13, 7100, 6399 #### [facility] [address], [address] [place] [address] It Service Manager: Yash Campuzano MD APTTon 11-20-2020 aPTT Coag (Bld) [Time] 33.4 s Normal 25.0-35.0 [facility] Comment on above: Result Comment: [...] THIS PURPOSE. Performed By: #### 5 6101, 03075 ####[facility] [facility] [place] [address], [facility] BNP EDon 11-20-2020 Natriuretic peptide B (Bld) [Mass/Vol] 111 pg/mL High 0-100 [facility] Comment on above: Result Comment: Give n the appropriate clinical setting a BNP result of >100 pg/mL indicates congestive heart failure. Performed By: #### 3 0935 #### [facility] [address] CBC W/DIFFon 11-20-2020 ABS IMM GRANS 0.0 10*3/uL Normal 0.0-0.2 [facility] Comment on above: Performed By: #### 5 0103 ####[facility] ABS NEUTROPHILS 3.9 10*3/uL Normal 1.6-7.6 [facility] Comment on above: Performed By: #### 5 0103 ####[facility] Basophils (Bld) [#/Vol] 0.1 10*3/uL Normal 0.0-0.2 [facility] Comment on above: Performed By: #### 5 0103 ####[facility] Basophils/100 WBC (Bld) 1.0 % Normal 0.0-1.0 [facility] Comment on above: Performed By: #### 5 0103 ####[facility] Eosinophils (Bld) [#/Vol] 0.3 10*3/uL Normal 0.0-0.5 [facility] Comment on above: Performed By: #### 5 0103 ####[facility] Eosinophils/100 WBC (Bld) 5.1 % Normal 0.0-6.0 [facility] Comment on above: Performed By: #### 5 0103 ####[facility] Erythrocyte distribution width (RBC) [Ratio] 13.1 % Normal 11.5-15.0 [facility] Comment on above: Performed By: #### 5 0103 ####[facility] Hematocrit (Bld) [Volume fraction] 45.4 % Normal 39.0-50.0 [facility] Comment on above: Performed By: #### 5 3 ####[address] Hemoglobin (Bld) [Mass/Vol] 14.8 g/dL Normal 13.0-17.0 [facility] Comment on above: Performed By: #### 3 ####[address] IMMATURE GRANS 0.3 % Normal 0.0-1.0 [facility] Comment on above: Performed By: #### 102 ####[address] Lymphocytes (Bld) [#/Vol] 1.0 10*3/uL Low 1.2-4.0 [facility] Comment on above: Performed By: #### 5 3 ####[address] Lymphocytes/100 WBC (Bld) 17.5 % Low 20.0-45.0 [facility] Comment on above: Performed By: #### 3 ####[address] MCH (RBC) [Entitic mass] 32.5 pg Normal 27.0-33.0 [facility] Comment on above: Performed By: #### 5 3 ####[address] MCHC (RBC) [Mass/Vol] 32.6 g/dL Normal 32.0-35.0 [facility] Comment on above: Performed By: #### 5 3 ####[address] MCV (RBC) [Entitic vol] 99.6 fL High 82.0-98.0 [facility] Comment on above: Performed By: #### 5 0103 ####[facility] [facility].[address] Monocytes (Bld) [#/Vol] 0.6 10*3/uL Normal 0.1-1.0 [facility] Comment on above: Performed By: #### 0103 ####[facility] [facility].[address] MONOS 9.4 % Normal 5.0-12.0 [facility] Comment on above: Performed By: #### 102 ####[place] [address] [facility].[address] Neutrophils/100 WBC (Bld) 66.7 % Normal 40.0-72.0 [facility] Comment on above: Performed By: #### 102 ####[place] [address] [facility].[address] Nucleated RBC/100 WBC (Bld) [Ratio] 0 % Normal 0-0 [facility] Comment on above: Performed By: #### 102 ####[facility] [facility].[address] PLAT CNT 175 10*3/uL Normal 150-400 [facility] Comment on above: Performed By: #### 5 3 ####[facility] [facility].[address] RBC (Bld) [#/Vol] 4.56 10*6/uL Normal 4.20-5.70 [facility] Comment on above: Performed By: #### 3 ####[facility] [facility].[address] WBC (Bld) [#/Vol] 5.88 10*3/uL Normal 4.00-10.60 [facility] Comment on above: Performed By: #### 5 0103 ####[facility] [place] [address], [facility] COMP METABOLIC PANELon 11-20 Albumin [Mass/Vol] 4.0 g/dL Normal 3.5-5.7 [facility] Comment on above: Performed By: #### 0 0121, 76284, 26997, 19359 #### [facility] [address] [place] [address], [facility] ALKALINE PHOSPH 130 IU/L High 34-104 [facility] Comment on above: Performed By: #### 0 0121, 46698, 64330, 82818 #### [facility] [address] [place] [address], [facility] ALT [Catalytic activity/Vol] 18 U/L Normal 7-52 [facility] Comment on above: Performed By: #### 0 0121, 88431, 96222, 65709 #### [facility] [address] [place] [address], [facility] AST [Catalytic activity/Vol] 19 U/L Normal 13-39 [facility] Comment on above: Performed By: #### 0 0121, 55350, 65263, 03162 #### [facility] [address] [place] [address], [facility] Bilirubin [Mass/Vol] 0.4 mg/dL Normal 0.3-1.0 [facility] Comment on above: Performed By: #### 0 0121, 54924, 47611, 88466 #### [facility] [address] [place] [id number], [facility] Calcium [Mass/Vol] 9.0 mg/dL Normal 8.6-10.3 [facility] Comment on above: Performed By: #### 0 0121, 33615, 91484, 18437 #### [facility] [address] [place] [address], [place] Chloride [Moles/Vol] 103 mmol/L Normal 98-107 [facility] Comment on above: Performed By: #### 0 0121, 29304, 55931, 10281 #### [facility] [address] [place] [address], [place] CO2 [Moles/Vol] 28 mmol/L Normal 21-31 [facility] Comment on above: Performed By: #### 0 0121, 28405, 02568, 71964 #### [facility] [address] [place] [address], [place] Creatinine [Mass/Vol] 0.77 mg/dL Normal 0.70-1.30 [facility] Comment on above: Performed By: #### 0 0121, 58301, 48883, 35035 #### [facility] [address] [place] [address], [place] GFR/1.73 sq M.predicted among blacks MDRD (S/P/Bld) [Vol rate/Area] mL/min/{1.73_m2} Normal >60 [facility] Comment on above: Performed By: #### 0 0121, 38770, 14125, 03530 #### [facility] [address] [place] [address], [place] GFR/1.73 sq M.predicted among non-blacks MDRD (S/P/Bld) [Vol rate/Area] mL/min/{1.73_m2} Normal >60 [facility] Comment on above: Performed By: #### 0 0121, 28244, 89713, 59289 #### [facility] [address] [place] [address], [place] Glucose [Mass/Vol] 88 mg/dL Normal 70-100 [facility] Comment on above: Performed By: #### 0 0121, 08503, 41893, 74676 #### [facility] [address] [place] [address], [facility] Potassium [Moles/Vol] 4.9 mmol/L Normal 3.5-5.1 [facility] Comment on above: Performed By: #### 0 0121, 62340, 31374, 35011 #### [facility] [address] [place] [address], [facility] Protein [Mass/Vol] 7.3 g/dL Normal 6.0-8.3 [facility] Comment on above: Performed By: #### 0 0121, 66475, 55771, 36040 #### [facility] [address] [place] [address], [facility] Sodium [Moles/Vol] 138 mmol/L Normal 136-145 [facility] Comment on above: Performed By: #### 0 0121, 75428, 52858, 48240 #### [facility] [address] [place] [address], [facility] Urea nitrogen [Mass/Vol] 15 mg/dL Normal 7-25 [facility] Comment on above: Performed By: #### 0 0121, 43820, 25588, 03665 #### [facility] [address] [facility] [place] [address], [facility] CTA HEADon 11-20-2020 CTA HEAD [facility] Department of Radiology [address] [place] [id number] ======== Patient Name: NAZARIO CORTES : 1955 Sex: M Age: Race: White Pt. Location: [facility] Patient Status: E Ordered Date: [...] stenosis of the major vessels of the [place]. origin of bilateral posterior cerebral arteries. IMPRESSION: Normal CTA of the brain. All CT scans at this facility use dose modulation, iterative reconstruction, and/or weight based dosing when appropriate to reduce radiation dose to as low as reasonably achievable. Electronically signed: Dhaval Ghotra. Transcribed by: [email or web address], User Resident: Electronically Signed by: DHAVAL GHOTRA @ 11/20/2020 12:58 PM Normal [facility] Comment on above: Order Comment: Bleed CTA NECKon 11-20-2020 CTA NECK [facility] Department of Radiology [address] [place] [id number] ======== Patient Name: NAZARIO CORTES : 1955 Sex: M Age: Race: White Pt. Location: [facility] Patient Status: E Ordered Date: [...] viewed on a separate workstation. The [place] Symptomatic Carotid Endarterectomy Trial (NASCET) method for [...] achievable Electronically signed: Dhaval Ghotra. Transcribed by: [email or web address], User Resident: Electronically Signed by: DHAVAL GHOTRA @ 11/20/2020 12:57 PM Normal [facility] DIRECT BILIon 11-20-2020 Bilirubin.direct [Mass/Vol] 0.1 mg/dL Normal 0.0-0.2 [facility] Comment on above: Order Comment: Liver Battery conflicts with Comprehensive Metabolic Panel. Liver Battery canceled and Direct Bilirubin added. Performed By: #### 0 0121, 48485, 65441, 39606 #### [facility] [address] [place], [place] [id number] [place] [address] LIPASE BLOODon 11-20-2020 LIPASE 27 Units/L Normal 11-82 [facility] Comment on above: Performed By: #### 0 0121, 28219, 02271, 92572 #### [facility] [address] [facility]. [place], [place] [id number] [place] [address] POC SARS COV2 ANTIGEN NEGATI VEon 11-20-2020 POC SARS COV2 ANTIGEN N Negative Normal NEGATIVE [facility] Comment on above: Result Comment: Test performed on [employer] System for rapid detection of SARS-CoV-2. Negative [...] management. Performed By: #### 3 1919 #### [id number] [place] [address] PORTABLE CHEST 1 VIEWon 10-23 PORTABLE CHEST 1 VIEW [facility] Department of Radiology [address] [place] [id number] ======== Patient Name: NAZARIO CORTES : 1955 Sex: M Age: Race: White Pt. Location: [facility] Patient Status: E Ordered Date: [...] reports Electronically signed: Dhaval Ghotra. Transcribed by: [email or web address], User Resident: JESSENIA ALFORD Electronically Signed by: DHAVAL GHOTRA @ 11/20/2020 12:32 PM I personally read this/these film(s) with this resident Normal [facility] Comment on above: Order Comment: evalu ate for Pneumonia PROTHROMBIN TIMEon 0 INR Coag (PPP) [Relative time] 0.95 {INR} Normal 0.91-1.16 [facility] Comment on above: Result Comment: [...] CHEST 1995;108:231S-246S. Performed By: #### 5 6101, 16654 ####[facility] PT Coag (PPP) [Time] 12.7 s Normal 12.3-14.8 [facility] Comment on above: Result Comment: ALL RESULTS MUST BE INTERPRETED WITH RESPECT TO BLOOD DRAWING ARTIFACT OR DILUTION ERROR OF ANTICOAGULANT AT THE TIME OF SAMPLING. Performed By: #### 5 6101, 03196 ####[facility] TROPONIN-Ion 11-20-2020 Troponin I.cardiac [Mass/Vol] 0.00 ng/mL Normal 0.00-0.04 [facility] Comment on above: Order Comment: No: D o not add to previous draw Result Comment: REFE RENCE RANGES: 0.00 - 0.14 ng/ml NEGATIVE 0.15 - 0.25 ng/ml INDETERMINATE > 0.25 ng/ml INDICATIVE OF AN M.I. Performed By: #### 3 8400 #### [facility] [address] [place] [address], [facility] Troponin I.cardiac [Mass/Vol] 0.00 ng/mL Normal 0.00-0.04 [facility] Comment on above: Result Comment: REFE RENCE RANGES: 0.00 - 0.14 ng/ml NEGATIVE 0.15 - 0.25 ng/ml INDETERMINATE > 0.25 ng/ml INDICATIVE OF AN M.I. Performed By: #### 0 0121, 49551, 40229, 10704 #### [facility] [address] Vital Signs Date Time Vital Sign Value Performing Clinician Facility 08-02-2025 11:40-0400 Body height 182.88 cm Jignesh Gonsalez MD Work Phone: [facility] 08-02-2025 11:40-0400 Body mass index (BMI) [Ratio] 43.1 kg/m2 Jignesh Gonsalez MD Work Phone: [facility] 08-02-2025 11:40-0400 Body temperature 98.3 [degF] Jignesh Gonsalez MD Work Phone: [facility] 08-02-2025 11:40-0400 Body weight 144.24 kg Jignesh Gonsalez MD Work Phone: [facility] 08-02-2025 11:40-0400 Diastolic blood pressure 70 mm[Hg] Jignesh Gonsalez MD Work Phone: [facility] 08-02-2025 11:40-0400 Heart rate 76 /min Jignesh Gonsalez MD Work Phone: [facility] 08-02-2025 11:40-0400 Respiratory rate 16 /min Jignesh Gonsalez MD Work Phone: [facility] 08-02-2025 11:40-0400 SaO2% (BldA) [Mass fraction] 96 % Jignesh Gonsalez MD Work Phone: [facility] 08-02-2025 11:40-0400 Systolic blood pressure 122 mm[Hg] Jignesh Gonsalez MD Work Phone: [facility] 07-08-2025 14:36-0400 Body height 184.15 cm Jignesh Gonsalez MD Work Phone: [facility] 07-08-2025 14:36-0400 Body mass index (BMI) [Ratio] 42.3 kg/m2 Jignesh Gonsalez MD Work Phone: [facility] 07-08-2025 14:36-0400 Body temperature 97.6 [degF] Jignesh Gonsalez MD Work Phone: [facility] 07-08-2025 14:36-0400 Body weight 143.5 kg Jignesh Gonsalez MD Work Phone: [facility] 07-08-2025 14:36-0400 Diastolic blood pressure 80 mm[Hg] Jignesh Gonsalez MD Work Phone: [facility] 07-08-2025 14:36-0400 Heart rate 74 /min Jignesh Gonsalez MD Work Phone: [facility] 07-08-2025 14:36-0400 SaO2% (BldA) [Mass fraction] 93 % Jignesh Gonsalez MD Work Phone: [facility] 07-08-2025 14:36-0400 Systolic blood pressure 129 mm[Hg] Jignesh Gonsalez MD Work Phone: [facility] 06-25-2025 15:52-0400 Body height 185.4 cm Jignesh Gonsalez MD Work Phone: [facility] 06-25-2025 15:52-0400 Body mass index (BMI) [Ratio] 41.82 kg/m2 Jignesh Gonsalez MD Work Phone: [facility] 06-25-2025 15:52-0400 Body temperature 96.6 [degF] Jignesh Gonsalez MD Work Phone: [facility] 06-25-2025 15:52-0400 Body weight 143.79 kg Jignesh Gonsalez MD Work Phone: [facility] 06-25-2025 15:52-0400 Diastolic blood pressure 70 mm[Hg] Jignesh Gonsalez MD Work Phone: [facility] 06-25-2025 15:52-0400 Heart rate 75 /min Jignesh Gonsalez MD Work Phone: [facility] 06-25-2025 15:52-0400 Respiratory rate 22 /min Jignesh Gonsalez MD Work Phone: [facility] 06-25-2025 15:52-0400 SaO2% (BldA) [Mass fraction] 97 % Jignesh Gonsalez MD Work Phone: [facility] 06-25-2025 15:52-0400 Systolic blood pressure 130 mm[Hg] Jignesh Gonsalez MD Work Phone: [facility] 05-26-2025 11:53-0400 Body height 184.15 cm Jignesh Gonsalez MD Work Phone: [facility] 05-26-2025 11:53-0400 Body mass index (BMI) [Ratio] 42.1 kg/m2 Jignesh Gonsalez MD Work Phone: [facility] 05-26-2025 11:53-0400 Body temperature 98 [degF] Jignesh Gonsalez MD Work Phone: [facility] 05-26-2025 11:53-0400 Body weight 142.88 kg Jignesh Gonsalez MD Work Phone: [facility] 05-26-2025 11:53-0400 Diastolic blood pressure 71 mm[Hg] Jignesh Gonsalez MD Work Phone: [facility] 05-26-2025 11:53-0400 Heart rate 73 /min Jignesh Gonsalez MD Work Phone: [facility] 05-26-2025 11:53-0400 Inhaled oxygen flow rate 2 L/min Jignesh Gonsalez MD Work Phone: [facility] 05-26-2025 11:53-0400 Respiratory rate 20 /min Jignesh Gonsalez MD Work Phone: [facility] 05-26-2025 11:53-0400 SaO2% (BldA) [Mass fraction] 92 % Jignesh Gonsalez MD Work Phone: [facility] 05-26-2025 11:53-0400 Systolic blood pressure 121 mm[Hg] Jignesh Gonsalez MD Work Phone: [facility] 05-23-2025 13:45-0400 Body height 185.4 cm Jignesh Gonsalez MD Work Phone: [facility] 05-23-2025 13:45-0400 Body mass index (BMI) [Ratio] 42.09 kg/m2 Jignesh Gonsalez MD Work Phone: [facility] 05-23-2025 13:45-0400 Body temperature 97.81 [degF] Jignesh Gonsalez MD Work Phone: [facility] 05-23-2025 13:45-0400 Body weight 144.7 kg Jignesh Gonsalez MD Work Phone: [facility] 05-23-2025 13:45-0400 Diastolic blood pressure 70 mm[Hg] Jignesh Gonsalez MD Work Phone: [facility] 05-23-2025 13:45-0400 Heart rate 82 /min Jignesh Gonsalez MD Work Phone: [facility] 05-23-2025 13:45-0400 Respiratory rate 22 /min Jignesh Gonsalez MD Work Phone: [facility] 05-23-2025 13:45-0400 SaO2% (BldA) [Mass fraction] 93 % Jignesh Gonsalez MD Work Phone: [facility] 05-23-2025 13:45-0400 Systolic blood pressure 142 mm[Hg] Jignesh Gonsalez MD Work Phone: [facility] 05-12-2025 11:58-0400 Body height 184.15 cm Jignesh Gonsalez MD Work Phone: [facility] 05-12-2025 11:58-0400 Body mass index (BMI) [Ratio] 42.3 kg/m2 Jignesh Gonsalez MD Work Phone: [facility] 05-12-2025 11:58-0400 Body temperature 98 [degF] Jignesh Gonsalez MD Work Phone: [facility] 05-12-2025 11:58-0400 Body weight 143.44 kg Jignesh Gonsalez MD Work Phone: [facility] 05-12-2025 11:58-0400 Diastolic blood pressure 64 mm[Hg] Jignesh Gonsalez MD Work Phone: [facility] 05-12-2025 11:58-0400 Heart rate 90 /min Jignesh Gonsalez MD Work Phone: [facility] 05-12-2025 11:58-0400 Respiratory rate 19 /min Jignesh Gonsalez MD Work Phone: [facility] 05-12-2025 11:58-0400 SaO2% (BldA) [Mass fraction] 98 % Jignesh Gonsalez MD Work Phone: [facility] 05-12-2025 11:58-0400 Systolic blood pressure 112 mm[Hg] Jignesh Gonsalez MD Work Phone: [facility] 04-26-2025 11:56-0400 Body height 185.4 cm Jignesh Gonsalez MD Work Phone: [facility] 04-26-2025 11:56-0400 Body mass index (BMI) [Ratio] 41.43 kg/m2 Jignesh Gonsalez MD Work Phone: [facility] 04-26-2025 11:56-0400 Body temperature 97.3 [degF] Jignesh Gonsalez MD Work Phone: [facility] 04-26-2025 11:56-0400 Body weight 142.43 kg Jignesh Gonsalez MD Work Phone: [facility] 04-26-2025 11:56-0400 Diastolic blood pressure 66 mm[Hg] Jignesh Gonsalez MD Work Phone: [facility] 04-26-2025 11:56-0400 Heart rate 42 /min Jignesh Gonsalez MD Work Phone: [facility] 04-26-2025 11:56-0400 Respiratory rate 22 /min Jignesh Gonsalez MD Work Phone: [facility] 04-26-2025 11:56-0400 SaO2% (BldA) [Mass fraction] 91 % Jignesh Gonsalez MD Work Phone: [facility] 04-26-2025 11:56-0400 Systolic blood pressure 128 mm[Hg] Jignesh Gonsalez MD Work Phone: [facility] 04-02-2025 12:08-0400 Body height 185.4 cm Jignesh Gonsalez MD Work Phone: [facility] 04-02-2025 12:08-0400 Body mass index (BMI) [Ratio] 40.64 kg/m2 Jignesh Gonsalez MD Work Phone: [facility] 04-02-2025 12:08-0400 Body temperature 97.5 [degF] Jignesh Gonsalez MD Work Phone: [facility] 04-02-2025 12:08-0400 Body weight 139.71 kg Jignesh Gonsalez MD Work Phone: [facility] 04-02-2025 12:08-0400 Diastolic blood pressure 64 mm[Hg] Jignesh Gonsalez MD Work Phone: [facility] 04-02-2025 12:08-0400 Heart rate 66 /min Jignesh Gonsalez MD Work Phone: [facility] 04-02-2025 12:08-0400 Respiratory rate 22 /min Jignesh Gonsalez MD Work Phone: [facility] 04-02-2025 12:08-0400 SaO2% (BldA) [Mass fraction] 96 % Jignesh Gonsalez MD Work Phone: [facility] 04-02-2025 12:08-0400 Systolic blood pressure 128 mm[Hg] Jignesh Gonsalez MD Work Phone: [facility] 02-20-2025 13:33-0400 Body height 185.4 cm Jignesh Gonsalez MD Work Phone: [facility] 02-20-2025 13:33-0400 Body mass index (BMI) [Ratio] 40.77 kg/m2 Jignesh Gonsalez MD Work Phone: [facility] 02-20-2025 13:33-0400 Body temperature 96.6 [degF] Jignesh Gonsalez MD Work Phone: [facility] 02-20-2025 13:33-0400 Body weight 140.16 kg Jignesh Gonsalez MD Work Phone: [facility] 02-20-2025 13:33-0400 Diastolic blood pressure 76 mm[Hg] Jignesh Gonsalez MD Work Phone: [facility] 02-20-2025 13:33-0400 Heart rate 85 /min Jignesh Gonsalez MD Work Phone: [facility] 02-20-2025 13:33-0400 Respiratory rate 22 /min Jignesh Gonsalez MD Work Phone: [facility] 02-20-2025 13:33-0400 SaO2% (BldA) [Mass fraction] 92 % Jignesh Gonsalez MD Work Phone: [facility] 02-20-2025 13:33-0400 Systolic blood pressure 154 mm[Hg] Jignesh Gonsalez MD Work Phone: [facility] 01-21-2025 13:40-0500 Body height 185.4 cm Jignesh Gonsalez MD Work Phone: [facility] 01-21-2025 13:40-0500 Body mass index (BMI) [Ratio] 41.03 kg/m2 Jignesh Gonsalez MD Work Phone: [facility] 01-21-2025 13:40-0500 Body temperature 97.5 [degF] Jignesh Gonsalez MD Work Phone: [facility] 01-21-2025 13:40-0500 Body weight 141.07 kg Jignesh Gonsalez MD Work Phone: [facility] 01-21-2025 13:40-0500 Diastolic blood pressure 64 mm[Hg] Jignesh Gonsalez MD Work Phone: [facility] 01-21-2025 13:40-0500 Heart rate 87 /min Jignesh Gonsalez MD Work Phone: [facility] 01-21-2025 13:40-0500 Respiratory rate 20 /min Jignesh Gonsalez MD Work Phone: [facility] 01-21-2025 13:40-0500 SaO2% (BldA) [Mass fraction] 91 % Jignesh Gonsalez MD Work Phone: [facility] 01-21-2025 13:40-0500 Systolic blood pressure 130 mm[Hg] Jignesh Gonsalez MD Work Phone: [facility] 12-19-2024 13:35-0500 Body height 185.4 cm Amrik Pérez MD Work Phone: [facility] 12-19-2024 13:35-0500 Body mass index (BMI) [Ratio] 40.37 kg/m2 Amrik Pérez MD Work Phone: [facility] 12-19-2024 13:35-0500 Body weight 138.8 kg Amrik Pérez MD Work Phone: [facility] 12-19-2024 13:35-0500 Diastolic blood pressure 64 mm[Hg] Amrik Pérez MD Work Phone: [facility] 12-19-2024 13:35-0500 Heart rate 80 /min Amrik Pérez MD Work Phone: [facility] 12-19-2024 13:35-0500 Systolic blood pressure 112 mm[Hg] Amrik Pérez MD Work Phone: [facility] 11-22-2024 15:42-0500 Body height 185.4 cm Jignesh Gonsalez MD Work Phone: [facility] 11-22-2024 15:42-0500 Body mass index (BMI) [Ratio] 41.16 kg/m2 Jignesh Gonsalez MD Work Phone: [facility] 11-22-2024 15:42-0500 Body temperature 97.5 [degF] Jignesh Gonsalez MD Work Phone: [facility] 11-22-2024 15:42-0500 Body weight 141.52 kg Jignesh Gonsalez MD Work Phone: [facility] 11-22-2024 15:42-0500 Diastolic blood pressure 66 mm[Hg] Jignesh Gonsalez MD Work Phone: [facility] 11-22-2024 15:42-0500 Heart rate 33 /min Jignesh Gonsalez MD Work Phone: [facility] 11-22-2024 15:42-0500 Respiratory rate 20 /min Jignesh Gonsalez MD Work Phone: [facility] 11-22-2024 15:42-0500 SaO2% (BldA) [Mass fraction] 89 % Jignesh Gonsalez MD Work Phone: [facility] 11-22-2024 15:42-0500 Systolic blood pressure 148 mm[Hg] Jignesh Gonsalez MD Work Phone: [facility] 10-25-2024 15:32-0500 Body height 185.4 cm Jignesh Gonsalez MD Work Phone: [facility] 10-25-2024 15:32-0500 Body mass index (BMI) [Ratio] 40.9 kg/m2 Jignesh Gonsalez MD Work Phone: [facility] 10-25-2024 15:32-0500 Body temperature 97.5 [degF] Jignesh Gonsalez MD Work Phone: [facility] 10-25-2024 15:32-0500 Body weight 140.62 kg Jignesh Gonsalez MD Work Phone: [facility] 10-25-2024 15:32-0500 Diastolic blood pressure 70 mm[Hg] Jignesh Gonsalez MD Work Phone: [facility] 10-25-2024 15:32-0500 Heart rate 87 /min Jignesh Gonsalez MD Work Phone: [facility] 10-25-2024 15:32-0500 Respiratory rate 22 /min Jignesh Gonsalez MD Work Phone: [facility] 10-25-2024 15:32-0500 SaO2% (BldA) [Mass fraction] 90 % Jignesh Gonsalez MD Work Phone: [facility] 10-25-2024 15:32-0500 Systolic blood pressure 150 mm[Hg] Jignesh Gonsalez MD Work Phone: [facility] 09-07-2024 14:54-0400 Body height 185.42 cm MD Jignesh Gonsalez Work Phone: [facility] 09-07-2024 14:54-0400 Body mass index (BMI) [Ratio] 39.2 kg/m2 MD Jignesh Gonsalez Work Phone: [facility] 09-07-2024 14:54-0400 Body temperature 96.8 [degF] MD Jignesh Gonsalez Work Phone: [facility] 09-07-2024 14:54-0400 Body weight 134.94 kg MD Jignesh Gonsalez Work Phone: [facility] 09-07-2024 14:54-0400 Diastolic blood pressure 78 mm[Hg] MD Jignesh Gonsalez Work Phone: [facility] 09-07-2024 14:54-0400 Heart rate 93 /min MD Jignesh Gonsalez Work Phone: [facility] 09-07-2024 14:54-0400 Respiratory rate 20 /min MD Jignesh Gonsalez Work Phone: [facility] 09-07-2024 14:54-0400 SaO2% (BldA) [Mass fraction] 94 % MD Jignesh Gonsalez Work Phone: [facility] 09-07-2024 14:54-0400 Systolic blood pressure 119 mm[Hg] MD Jignesh Gonsalez Work Phone: [facility] 08-16-2024 10:34-0400 Body height 185.42 cm [facility] 08-16-2024 10:34-0400 Body mass index (BMI) [Ratio] 39 kg/m2 [facility] 08-16-2024 10:34-0400 Body temperature 96.8 [degF] [facility] 08-16-2024 10:34-0400 Body weight 134.26 kg [facility] 08-16-2024 10:34-0400 Diastolic blood pressure 77 mm[Hg] [facility] 08-16-2024 10:34-0400 Heart rate 73 /min [facility] 08-16-2024 10:34-0400 Respiratory rate 18 /min [facility] 08-16-2024 10:34-0400 SaO2% (BldA) [Mass fraction] 96 % [facility] 08-16-2024 10:34-0400 Systolic blood pressure 125 mm[Hg] [facility] 08-09-2024 13:10-0400 Body height 185.42 cm MD Jignesh Gonsalez Work Phone: [facility] 08-09-2024 13:10-0400 Body mass index (BMI) [Ratio] 39 kg/m2 MD Jignesh Gonsalez Work Phone: [facility] 08-09-2024 13:10-0400 Body temperature 98.5 [degF] MD Jignesh Gonsalez Work Phone: [facility] 08-09-2024 13:10-0400 Body weight 134.26 kg MD Jignesh Gonsalez Work Phone: [facility] 08-09-2024 13:10-0400 Diastolic blood pressure 64 mm[Hg] MD Jignesh Gonsalez Work Phone: [facility] 08-09-2024 13:10-0400 Heart rate 75 /min MD Jignesh Gonsalez Work Phone: [facility] 08-09-2024 13:10-0400 Respiratory rate 18 /min MD Jignesh Gonsalez Work Phone: [facility] 08-09-2024 13:10-0400 SaO2% (BldA) [Mass fraction] 93 % MD Jignesh Gonsalez Work Phone: [facility] 08-09-2024 13:10-0400 Systolic blood pressure 98 mm[Hg] MD Jignesh Gonsalez Work Phone: [facility] 05-15-2024 15:36-0400 Body height 185.42 cm MD Jignesh Gonsalez Work Phone: [facility] 05-15-2024 15:36-0400 Body mass index (BMI) [Ratio] 36.9 kg/m2 MD Jignesh Gonsalez Work Phone: [facility] 05-15-2024 15:36-0400 Body temperature 97.5 [degF] MD Jignesh Gonsalez Work Phone: [facility] 05-15-2024 15:36-0400 Body weight 127 kg MD Jignesh Gonsalez Work Phone: [facility] 05-15-2024 15:36-0400 Diastolic blood pressure 74 mm[Hg] MD Jignesh Gonsalez Work Phone: [facility] 05-15-2024 15:36-0400 Heart rate 81 /min MD Jignesh Gonsalez Work Phone: [facility] 05-15-2024 15:36-0400 Respiratory rate 18 /min MD Jignesh Gonsalez Work Phone: [facility] 05-15-2024 15:36-0400 SaO2% (BldA) [Mass fraction] 93 % MD Jignesh Gonsalez Work Phone: [facility] 05-15-2024 15:36-0400 Systolic blood pressure 119 mm[Hg] MD Jignesh Gonsalez Work Phone: [facility] 04-23-2024 13:06-0400 Body height 185.42 cm [facility] 04-23-2024 13:06-0400 Body mass index (BMI) [Ratio] 36.9 kg/m2 [facility] 04-23-2024 13:06-0400 Body temperature 97.3 [degF] [facility] 04-23-2024 13:06-0400 Body weight 127 kg [facility] 04-23-2024 13:06-0400 Diastolic blood pressure 56 mm[Hg] [facility] 04-23-2024 13:06-0400 Heart rate 80 /min [facility] 04-23-2024 13:06-0400 Respiratory rate 18 /min [facility] 04-23-2024 13:06-0400 SaO2% (BldA) [Mass fraction] 97 % [facility] 04-23-2024 13:06-0400 Systolic blood pressure 106 mm[Hg] [facility] 07-05-2023 10:00-0400 Body height 185.42 cm Luiz Riggs Other [facility] Other 07-05-2023 10:00-0400 Body mass index (BMI) [Ratio] 37.86 kg/m2 Luiz Riggs Other [facility] Other 07-05-2023 10:00-0400 Body weight 130.18 kg Luiz Riggs Other [facility] Other 07-05-2023 10:00-0400 Diastolic blood pressure 76 mm[Hg] Luiz Riggs Other [facility] Other 07-05-2023 10:00-0400 Systolic blood pressure 126 mm[Hg] Luiz Riggs Other [facility] Other 04-06-2022 17:40-0400 Body height 185.42 cm Neelam Alexandra Other [facility] Other 04-06-2022 17:40-0400 Body mass index (BMI) [Ratio] 36.15 kg/m2 Neelam Alexandra Other [facility] Other 04-06-2022 17:40-0400 Body temperature 98 [degF] Neelam Alexandra Other [facility] Other 04-06-2022 17:40-0400 Body weight 124.29 kg Neelam Alexandra Other [facility] Other 04-06-2022 17:40-0400 Diastolic blood pressure 69 mm[Hg] Neelam Alexandra Other [facility] Other 04-06-2022 17:40-0400 Respiratory rate 18 /min Neelam Alexandra Other [facility] Other 04-06-2022 17:40-0400 SaO2% (BldA) [Mass fraction] 95 % Neelam Alexandra Other [facility] Other 04-06-2022 17:40-0400 Systolic blood pressure 123 mm[Hg] Neelam Morris Other [facility] Other 12-28-2021 17:00-0500 Body height 185.42 cm Alex Bonilla Other [facility] Other 12-28-2021 17:00-0500 Body mass index (BMI) [Ratio] 37.47 kg/m2 Alex Bonilla Other [facility] Other 12-28-2021 17:00-0500 Body weight 128.82 kg Alex Bonilla Other [employer] [facility] Other Encounters Encounter Date Encounter Type Care Provider Facility Start: 08-02-2025 End: 08-02-2025 ambulatory Jignesh Gonsalez MD Work Phone: [facility] Work Phone: Start: 08-02-2025 End: 08-02-2025 Patient encounter procedure Jignesh Gonsalez MD -[facility] Work Phone: Start: 07-16-2025 End: 07-16-2025 Refill Jignseh Gonsalez MD Work Phone: [facility] Comment on above: Chronic pain of righ t knee; Degenerative lumbar spinal stenosis Start: 07-08-2025 End: 07-08-2025 ambulatory Jignesh Gonsalez MD Work Phone: [facility] Work Phone: Start: 07-08-2025 End: 07-08-2025 Patient encounter procedure Joslyn Pal APRN -[facility] Work Phone: Start: 07-03-2025 End: 07-03-2025 Clinical Support Chari Vela [facility] Work Phone: [facility] Comment on above: Sensorineural hearin g loss, bilateral (Primary Dx) Start: 07-03-2025 End: 07-03-2025 ambulatory CHARI Clary DANE Not Available Start: 07-03-2025 End: 07-03-2025 Bamboo flowsheet Chari Ruizill CCC-A Work Phone: [facility] Start: 07-03-2025 End: 07-03-2025 Bamboo flowsheet Chari A Dane CCC-A Work Phone: [facility] Start: 06-25-2025 End: 06-25-2025 Office outpatient visit 25 minutes Jignesh Gonsalez MD Work Phone: [facility] Comment on above: Pneumonia due to inf ectious organism, unspecified laterality, unspecified part of lung (Primary Dx); Influenza A; Chronic obstructive pulmonary disease with acute exacerbation (HCC); Chronic hypoxic respiratory failure (HCC) Start: 06-25-2025 End: 06-25-2025 ambulatory JIGNESH GONSALEZ Not Available Start: 06-17-2025 End: 06-18-2025 Refill Jignesh Gonsalez MD Work Phone: [facility] Comment on above: Seizure disorder (HC C) Start: 06-02-2025 End: 06-04-2025 Clinisync Result Encounter Generic External Data Provider [facility] External Department Unsolicited Start: 06-02-2025 End: 06-04-2025 Clinisync Result Encounter Generic External Data Provider [facility] External Department Unsolicited Start: 05-26-2025 End: 05-26-2025 ambulatory Jignesh Gonsalez MD Work Phone: [facility] Work Phone: Start: 05-26-2025 End: 05-26-2025 Patient encounter procedure Kaykay Mendoza [facility] Work Phone: Start: 05-23-2025 End: 05-23-2025 Bamboo flowscuong Gonsalez MD Work Phone: [facility] Start: 05-23-2025 End: 05-23-2025 Bamboo flowscuong Gonsalez MD Work Phone: [facility] Start: 05-23-2025 End: 05-23-2025 Office outpatient visit 25 minutes Jignesh Gonsalez MD Work Phone: [facility] Comment on above: Benign essential hyp ertension [...] Start: 05-15-2025 End: 05-15-2025 ambulatory JIGNESH GONSALEZ [facility] Start: 05-13-2025 End: 05-14-2025 Refill Jignesh Gonsalez MD Work Phone: [facility] Comment on above: Dizziness; Dyslipidemia Start: 05-12-2025 End: 05-12-2025 Patient encounter procedure Sandy Sarabia FUND DIRECTOR -[facility] Work Phone: Start: 04-26-2025 End: 04-26-2025 Office outpatient visit 25 minutes Jignesh Gonsalez MD Work Phone: [facility] Comment on above: Chronic obstructive pulmonary disease, unspecified COPD type (CMS/HCC) (Primary Dx); Chronic hypoxic respiratory failure (CMS/HCC); Dysphagia, unspecified type Start: 04-26-2025 End: 04-26-2025 ambulatory JIGNESH GONSALEZ Not Available Start: 04-25-2025 End: 04-25-2025 Bamboo flowsheet Chari Vela [facility] Work Phone: [facility] Start: 04-25-2025 End: 04-25-2025 Bamboo flowsheet Chari Vela [facility] Work Phone: [facility] Start: 04-25-2025 End: 04-25-2025 Clinical Support Chari A Dane [facility] Work Phone: [facility] Comment on [...] Result Encounter Jignesh Gonsalez MD Work Phone: [facility] External Department Unsolicited Start: 02-20-2025 End: 02-20-2025 [...] stenosis Start: 01-22-2025 End: 01-22-2025 ambulatory EHAB [facility] Start: 01-21-2025 End: 01-21-2025 Bamboo flowsheet Jignesh Gonsalez MD Work Phone: [facility] Start: 01-21-2025 End: 01-21-2025 Bamboo flowsheet Jignesh Gonsalez MD Work Phone: [facility] Start: 01-21-2025 End: 01-21-2025 Office outpatient visit 15 minutes Jignesh Gonsalez MD Work Phone: [facility] Comment on above: Coronary artery dise ase involving [place] coronary artery of [place] heart without angina pectoris (CMS/HCC) (Primary Dx); SOB (shortness of breath) on exertion Start: 01-21-2025 End: 01-21-2025 ambulatory JIGNESH GONSALEZ Not Available Start: 01-12-2025 Evaluation and manag ement of inpatient [facility] Start: 01-11-2025 Evaluation and manag ement of inpatient [facility] Start: 01-11-2025 Evaluation and manag ement of inpatient [facility] Start: 01-11-2025 End: 01-13-2025 Evaluation and management of inpatient [facility] Start: 12-19-2024 End: 12-19-2024 Roxy [...] well ness visit, subsequent (Primary Dx); Dyslipidemia ([facility]/HCC); Encounter for long-term current use of medication; Screening PSA (prostate specific antigen); Class 3 severe obesity due to excess calories with serious comorbidity and body mass index (BMI) of 40.0 to 44.9 in adult ([facility]/HCC); Major depressive disorder, recurrent episode, mild (HCC) ([facility]/HCC); Seizure disorder ([facility]/HCC); Malignant neoplasm of urinary bladder, unspecified site ([facility]/HCC) Start: 11-22-2024 End: 11-22-2024 ambulatory JIGNESH GONSALEZ Not Available Start: 11-22-2024 End: 11-22-2024 Bamboo flowsheet Jignesh Gonsalez MD Work Phone: [facility] Start: 11-22-2024 End: 11-22-2024 Bamboo flowsheet Jignesh Gonsalez MD Work Phone: [facility] Start: 11-22-2024 End: 11-22-2024 Patient encounter procedure Jignesh Gonsalez MD Work Phone: [facility] Work Phone: Start: 11-15-2024 End: 11-15-2024 Refill Jignesh Gonsalez MD Work Phone: [facility] Comment on above: Degenerative lumbar spinal stenosis Start: 11-06-2024 End: 11-06-2024 Telephone encounter Marquise ALANIS Work Phone: [facility] Start: 10-30-2024 End: 10-30-2024 Clinical Support Chari Vela CCC-A Work Phone: [facility] Comment on [...] Start: 10-17-2024 End: 10-17-2024 ambulatory Yancy Lawson Facility:[facility] Start: 10-11-2024 End: 10-11-2024 Refill Jignesh Gonsalez MD Work Phone: [facility] Comment on above: Degenerative lumbar spinal stenosis Start: 09-25-2024 End: 09-25-2024 Refill Jignesh Gonsalez MD Work Phone: [facility] Comment on above: Seizure disorder (CM S/HCC) Start: 09-07-2024 End: 09-07-2024 ambulatory MD Jignesh Gonsalez Work Phone: [facility] Work Phone: Start: 09-07-2024 End: 09-07-2024 Patient encounter procedure MD Jignesh Gonsalez Work Phone: [facility] Work Phone: Start: 08-16-2024 End: 08-16-2024 ambulatory [facility] Work Phone: Start: 08-16-2024 End: 08-16-2024 Patient encounter procedure [facility] Work Phone: Start: 08-09-2024 End: 08-09-2024 ambulatory MD Jignesh Gonsalez Work Phone: [facility] Work Phone: Start: 08-09-2024 End: 08-09-2024 Patient encounter procedure MD Jignesh Gonsalez Work Phone: [facility] Work Phone: Start: 08-08-2024 ambulatory [facility] Start: 07-26-2024 End: 07-26-2024 ambulatory [facility] Start: 07-18-2024 End: 07-18-2024 Refill Jignesh Gonsalez MD Work Phone: [facility] Comment on above: Seizure disorder (CM S/HCC) Start: 05-15-2024 End: 05-15-2024 ambulatory MD Jignesh Gonsalez Work Phone: [facility] Work Phone: Start: 05-15-2024 End: 05-15-2024 Patient encounter procedure MD Jignesh Gonsalez Work Phone: [facility] Work Phone: Start: 04-23-2024 End: 04-23-2024 ambulatory [facility] Work Phone: Start: 04-23-2024 End: 04-23-2024 Patient encounter procedure [facility] Work Phone: Start: 12-30-2023 ambulatory Chris CAMARILLO Facili ty:[facility] Start: 12-21-2023 Telephone encounter Epifanio dennison MD Work Phone: [facility] Start: 12-20-2023 ambulatory [facility] Start: 07-18-2023 End: 07-19-2023 ambulatory JIGNESH GONSALEZ Facility:[facility] Start: 07-18-2023 End: 07-18-2023 Patient encounter procedure Chris Brizuela RABIA [facility] Start: 07-05-2023 Office outpatient ne w [address] [facility] Start: 07-05-2023 End: 07-05-2023 ambulatory MD Jignesh Gonsalez Work Phone: [facility] Work Phone: Start: 07-05-2023 End: 07-05-2023 Patient encounter procedure MD Jignesh Gonsalez Work Phone: [facility] [place] Work Phone: Start: 01-07-2023 End: 01-08-2023 ambulatory [...] 04-06-2022 End: 04-06-2022 ambulatory Neelam Morris Other [employer] Other Start: 04-06-2022 Office outpatient vi sit 15 minutes Neelam Morris [facility] Start: 12-28-2021 End: 12-28-2021 ambulatory Alex Castanopiper Other [place] [employer] Other Start: 12-28-2021 Office outpatient ne w [address] [facility] Start: 11-20-2020 End: 11-20-2020 Emergency department patient visit KARINA PIERRE Facility:[facility] Procedures Date Procedure Procedure Detail Performing Clinician Start: 06-02-2025 BLOOD CULTURE 2 Generic External Data Provider Start: 06-02-2025 BLOOD CULTURE 1 Generic External Data Provider Start: 03-08-2025 Epithelial cells LM Ql (Urine [...] Comment on above: Performed By: #### [facility] #### [facility] [address] [address] [address] Jeimy Tenorio Extraction of cataract Patri ck RABIA Procedure on foot Chris MERINO Plan of Treatment Date Care Activity Detail Author Start: 12-11-2034 Screening for malign ant neoplasm of colon [facility] Start: 11-22-2025 Medicare Annual Well ness (AWV) Medicare Annual Wellness (AWV) [facility] Start: 08-28-2025 End: 08-28-2025 Patient encounter procedure 08/28/2025 1:00 PM EDT Office Visit [facility] [address] [place] [phone] Jignesh Gonsalez MD [address] [place] [phone] [facility] Start: 08-02-2025 End: 08-02-2025 Patient encounter procedure 08/02/2025 11:30 AM EDT Office Visit [facility] [address] [place] [address] Jignesh Gonsalez MD [address] [place] [phone] [facility] Start: 07-22-2025 Influenza vaccination Influenza Vacc ine (#1) [facility] Start: 06-25-2025 End: 06-25-2025 Patient encounter procedure 06/25/2025 3:15 PM EDT Office Visit [facility] [address] [place] [phone] Jignesh Gonsalez MD [address] [place] [phone] [facility] Start: 05-23-2025 End: 05-23-2025 Patient encounter procedure [facility] Comment on above: Arrived Start: 04-26-2025 End: 04-26-2026 RF Upper gastrointestinal tract and Small bowel Single view W contrast PO FL upper GI double contrast w KUB Imaging Routine Dysphagia, unspecified type Expected: 04/26/2025, Expires: 04/26/2026 [facility] Work Phone: Comment on above: Expected: 04/26/2025 , Expires: 04/26/2026 Start: 04-26-2025 End: 04-26-2025 Patient encounter procedure 04/26/2025 11:45 AM EDT Office Visit [facility] [address] [place] [phone] Jignesh Gonsalez MD [address] [place] [address] [facility] Start: 04-02-2025 End: 04-02-2025 Patient encounter procedure [facility] Comment on above: Arrived Start: 02-20-2025 End: 02-20-2025 Patient encounter procedure [facility] Comment on above: Arrived Start: 01-21-2025 End: 01-21-2025 Patient encounter procedure 01/21/2025 1:45 PM EST Office Visit [facility] [address] [place] [phone] Jignesh Gonsalez MD [address] [place] [address] Arrived [facility] Comment on above: Arrived Start: 12-19-2024 End: 12-19-2024 Patient encounter procedure 12/19/2024 1:40 PM EST Office Visit [facility] [address] [place] [address] Amrik Pérez MD [address] [place] [address] Deviated nasal septum; Chronic rhinosinusitis [facility] Comment on above: Deviated nasal septu m; Chronic rhinosinusitis Start: 11-26-2024 End: 11-26-2024 Patient encounter procedure 11/26/2024 2:00 PM EST Office Visit [facility] [address] [place] [address] Jose M Rea DO [address] [facility] [address] [place] [phone] [facility] Start: 11-22-2024 End: 11-22-2024 Patient encounter procedure [facility] Comment on above: Arrived Start: 11-22-2024 End: 11-22-2025 Basic metabolic 1998 panel - Serum or Plasma Basic metabolic panel Lab Routine Encounter for long-term current use of medication Expected: 11/22/2024 (Approximate), Expires: 11/22/2025 [facility] Work Phone: Comment on above: Expected: 11/22/2024 (Approximate), Expires: 11/22/2025 Start: 11-22-2024 End: 11-22-2025 CBC W Auto Differential panel - Blood CBC and differential Lab Routine Encounter for long-term current use of medication Expected: 11/22/2024 (Approximate), Expires: 11/22/2025 [facility] Comment on above: Expected: 11/22/2024 (Approximate), Expires: 11/22/2025 Start: 11-22-2024 End: 11-22-2025 Hepatic function 2000 panel - Serum or Plasma Hepatic function panel Lab Routine Encounter for long-term current use of medication Expected: 11/22/2024 (Approximate), Expires: 11/22/2025 [facility] Comment on above: Expected: 11/22/2024 (Approximate), Expires: 11/22/2025 Start: 11-22-2024 End: 11-22-2025 Lipid 1996 panel - Serum or Plasma Lipid panel Lab Routine Dyslipidemia ([facility]) Expected: 11/22/2024 (Approximate), Expires: 11/22/2025 [facility] Comment on above: Expected: 11/22/2024 (Approximate), Expires: 11/22/2025 Start: 11-22-2024 End: 11-22-2025 Prostate specific Ag [Mass/volume] in Serum or Plasma PSA Lab Routine Screening PSA (prostate specific antigen) Expected: 11/22/2024 (Approximate), Expires: 11/22/2025 [facility] Comment on above: Expected: 11/22/2024 (Approximate), Expires: 11/22/2025 Start: 11-22-2024 End: 11-22-2025 Thyrotropin [Units/volume] in Serum or Plasma TSH Lab Routine Class 3 severe obesity due to excess calories with serious comorbidity and body mass index (BMI) of 40.0 to 44.9 in adult ([facility]) Expected: 11/22/2024 (Approximate), Expires: 11/22/2025 [facility] Comment on above: Expected: 11/22/2024 (Approximate), Expires: 11/22/2025 Start: 10-25-2024 End: 10-25-2024 Patient encounter procedure [facility] Comment on above: Arrived Start: 10-25-2024 End: 10-25-2025 CT Maxillofacial region WO and W contrast IV CT SINUS WO IV CONTRAST Imaging Routine Chronic rhinosinusitis Expected: 10/25/2024, Expires: 10/25/2025 [facility] Work Phone: Comment on above: Expected: 10/25/2024 , Expires: 10/25/2025 Start: 09-27-2024 End: 09-27-2024 Patient encounter procedure 09/27/2024 3:30 PM EST Office Visit [facility] [address] [place] [phone] Jignesh Gonsalez MD [address] [place] [phone] [facility] Start: 07-22-2024 Influenza vaccination Influenza Vacc ine (#1) [facility] Start: 12-30-2023 COVID-19 Vaccine ( season) COVID-19 Vaccine ( season) [facility] Start: 08-16-2023 Adult BMI Screening Adult BMI Screen ing [facility] Start: 08-16-2023 Fall Risk Screening Fall Risk Screen ing [facility] Start: 08-16-2023 Tobacco Screening Tobacco Screening [facility] Start: 08-05-2021 Pneumococcal Vaccine : 65+ Years (2 of 2 - PCV) Pneumococcal Vaccine: 65+ Years (2 of 2 - PCV) [facility] Start: 1974 Administration of varicella zoster vaccine Zoster (Shingles) Vaccine (1 of 2) [facility] Start: 1974 DTaP,Tdap and Td Vac cines (1 - Tdap) DTaP,Tdap and Td Vaccines (1 - Tdap) [facility] Start: 1967 Depression Screening Depression Scre ening [facility] Start: 1955 Medicare Annual Well ness (AWV) Medicare Annual Wellness (AWV) [facility] Start: 1955 Medicare Annual Well ness Visit Medicare Annual Wellness Visit [facility] Start: 1955 Screening for malign ant neoplasm of colon [facility] BLOOD CULTURE 1 BLOOD CULTURE 1 Lab Routine 06/02/2025 9:52 PM EDT [facility] BLOOD CULTURE 2 BLOOD CULTURE 2 Lab Routine 06/02/2025 10:15 PM EDT [facility] Comprehensive metabo lic 2000 panel - Serum or Plasma [facility] Insulin [Units/volum e] in Serum or Plasma [facility] LOWER RESPIRATORY CULTURE LOWER RESPIRATORY CULTURE Lab Routine 03/08/2025 8:00 AM EDT [facility] MR Knee - right WO contrast MR knee right wo IV contrast Imaging Routine Chronic pain of right knee Internal derangement of right knee Ordered: 10/25/2024 [facility] Comment on above: Ordered: 10/25/2024 Pulmonary function report Pulmon marjorie Function Test Imaging Routine SOB (shortness of breath) on exertion Ordered: 01/21/2025 [facility] Work Phone: Comment on above: Ordered: 01/21/2025 XR Knee - right [address] [facility] Immunizations Immunization Date Immunization Notes Care Provider Fa cility 10-11-2024 influenza virus vacc ine, unspecified formulation Jignesh Gonsalez MD Work Phone: [facility] 11-04-2023 Covid-19, Mrna, Lnp- s, Bivalent, Pf, 30mcg/0.3 ml Epifanio Kaufman MD Work Phone: [facility] 11-04-2023 Influenza, Seasonal, Quadrivalent, Adjuvanted Jignesh Gonsalez MD Work Phone: [facility] 11-04-2023 influenza virus vacc ine, unspecified formulation Jignesh Gonsalez MD Work Phone: [facility] 08-21-2022 influenza virus vacc ine, unspecified formulation Epifanio Kaufman MD Work Phone: [facility] 08-21-2022 Influenza, High-dose Seasonal, Quadrivalent, Preservative Free Jignesh Gonsalez MD Work Phone: [facility] 08-21-2022 SARS-COV-2 (COVID-19 ) Vaccine, Unspecified Epifanio Kaufman MD Work Phone: [facility] 08-06-2021 Influenza Vaccine, Quadrivalent, Adjuvanted Jignesh Gonsalez MD Work Phone: [facility] 02-25-2021 COVID-19, mRNA, LNP- S, PF, 100mcg/0.5mL Dose Jignesh Gonsalez MD Work Phone: [facility] 02-12-2021 COVID-19, mRNA, LNP- S, PF, 30mcg/0.3mL Dose Epifanio Kaufman MD Work Phone: [facility] 08-05-2020 influenza, injectabl e, quadrivalent, preservative free Jignesh Gonsalez MD Work Phone: [facility] 08-05-2020 pneumococcal polysaccharide vaccine, 23 valent Jignesh Gonsalez MD Work Phone: [facility] 09-03-2019 influenza, seasonal, injectable Jignesh Gonsalez MD Work Phone: [facility] 08-24-2019 influenza, injectabl e, quadrivalent, preservative free Jignesh Gonsalez MD Work Phone: [facility] Payers Date Payer Category Payer Self-pay [id number] 2023 Medicaid [id number] 2023 Medicaid [id number] 2022 Medicare [id number] 2021 Medicare [id number] 2021 Unknown [id number] 2021 Medicare [id number] 2020 Medicare [id number] 2019 Unknown [id number] 1959 Medicare [id number] 2. [id number] 1955 Unknown [id number] 2.16.8 40.1.481093.3.579.2.647 1955 Unknown [id number] 2.16.84 0.1.340117.3.579.2.593 1955 Unknown [id number] 2.16.84 0.1.937447.3.579.2.593 1955 Unknown [id number] 2.16.84 0.1.439340.3.579.2.593 1955 Unknown [id number] 2.16.84 0.1.285866.3.579.2.593 - Unknown [id number] 2.16.84 0.1.741010.3.579.2.593 1955 Unknown [id number] 2.16.84 0.1.138222.3.579.2.593 1955 Unknown [id number] 2.16.84 0.1.437930.3.579.2.593 1955 Unknown [id number] 2.16.8 40.1.211476.3.579.2.1286 1955 Unknown [id number] 2.16.8 40.1.047501.3.579.2.727 1955 Unknown [id number] 2.16.8 40.1.929372.3.579.2.727 1955 Unknown [id number] 2.16. 840.1.346318.3.579.2.1286 1955 Unknown [id number] 2.16.8 40.1.441391.3.579.2.1259 1955 Unknown [id number] 2.16.8 40.1.201959.3.579.2.1259 1955 Unknown [id number] 2.16.8 40.1.652912.3.579.2.1259 1955 Unknown [id number] 2.16.8 40.1.965220.3.579.2.1259 1955 Unknown [id number] 2.16.8 40.1.199384.3.579.2.1259 1955 Unknown [id number] 2.16.84 0.1.636407.3.579.2.1259 1955 Unknown [id number] 2.16.84 0.1.865864.3.579.2.1259 1955 Unknown [id number] 2.16.84 0.1.147380.3.579.2.1259 1955 Unknown [id number] 2.16.84 0.1.941567.3.579.2.1259 1955 Unknown [id number] 2.16.84 0.1.250297.3.579.2.9 1955 Unknown [id number] 2.16.84 0.1.427747.3.579.2.9 1955 Unknown [id number] 2.16.84 0.1.016441.3.579.2.1259 1955 Unknown [id number] 2.16.84 0.1.299146.3.579.2.1259 1955 Unknown [id number] 2.16.84 0.1.811562.3.579.2.1259 Medicare [id number] Unknown [id number] 2.16.8 40.1.777092.3.579.2.531 Unknown [id number] 2.16.8 40.1.565862.3.579.2.531 Unknown [id number] 2.16.8 40.1.484244.3.579.2.531 Social History Date Type Detail Facility Start: 12-14-2023 End: 01-15-2025 Sex Assigned At [facility] Start: 1955 Sex Assigned At Male [facility] Tobacco smoking status No Smoking Status Entered [facility] Start: 04-23-2024 End: 05-26-2025 Tobacco smoking status [facility] Never smoked tobacco (finding) [facility] Start: 01-11-2024 End: 12-19-2024 Tobacco smoking status WIIS Ex-smoker [facility] Start: 11-21-1971 End: 04-18-1997 History of tobacco use Current smoker [facility] Start: 11-21-1971 End: 04-18-1997 History of tobacco use Cigarette Smoker [facility] Start: 01-11-2024 End: 12-19-2024 Tobacco use and exposure Smokeless tobacco non-user [facility] Start: 05-21-2024 End: 06-25-2025 Alcoholic beverage intake Lifetime non-drinker (finding) [facility] Start: 08-16-2022 Alcohol intake Ex-drinker (finding) [facility] Sex Male (finding) [facility] NEGATED: Highlighted rowStart: NINF History of tobacco use Passive smoker [facility] Clinical Notes 11-21-2020 to 07-03-2025 MASHA Ferrari - 07/03/2025 3:45 PM Long Gonsalez MD - 06/25/2025 5:59 PM Long Gonsalez MD - 06/25/2025 5:58 PM Long Gonsalez MD - 06/25/2025 5:58 PM EDT Note Date & Type Note Facility 07-03-2025 History of Presen t illness Narrative Pt paid for hearing aid supplies documented in this encounter [facility] 06-25-2025 History of Presen t illness Narrative Associated Problem(s): Pneumonia Recent infection and improved. Monitor. Associated Problem(s): Influenza A Recent infection and improved. Monitor. Associated Problem(s): COPD (chronic obstructive pulmonary disease) (HCC) Symptoms stable and use inhalers daily. Follow with pulmonology. Associated Problem(s): Chronic hypoxic respiratory failure (HCC) Stable on home oxygen. Images from the original note were not included. Subjective Patient ID: Nathan Cortes is a 70 y.o. male who presents for Follow-up (Hospital f/up copd). Hospital follow up from 06/03-06/07 for pneumonia, COPD exacerbation, and influenza A. Developed worsening SOB. Chest tight and hard to take deep breath. Frequent cough and sputum. To ER and x-ray showed pneumonia. Influenza A positive and admitted. Started tamiflu, zithromax, rocephin, and steroids. Slowly improved. Remained on oxygen but on home rate. BS improved. Discharged home. Stable since home. Mild SOB with exertion but improving. Mild cough but no sputum. Remains on oxygen and using inhalers daily. Review of Systems Constitutional: Negative for fatigue. [...] This Visit COPD (chronic obstructive pulmonary disease) ([facility]) Symptoms stable and use inhalers daily. Follow with pulmonology. Chronic hypoxic respiratory failure (HCC) Stable on home oxygen. Influenza A Recent infection and improved. Monitor. Pneumonia - Primary Recent infection and improved. Monitor. documented in this encounter [facility] 06-18-2025 Telephone encount er Note MEDICATION SENT TO [facility] 06-18-2025 Miscellaneous Notes Formattin g of this note might be different from the original. MEDICATION SENT TO [facility] documented in this encounter [facility] 05-23-2025 History of Presen t illness Narrative Associated Problem(s): Neuropathy due to chemotherapeutic drug ([facility]) Continued symptoms but tolerable with neurontin and [...] legs PRN. COPD (chronic obstructive pulmonary disease) ([facility]) Symptoms stable and use inhalers daily. Follow with pulmonology. Relevant Medications Fluticasone-Salmeterol (Advair Diskus) 500-50 MCG/ACT aerosol powder Benign essential hypertension - Primary BP controlled and monitor PRN. Chronic hypoxic respiratory failure (HCC) Script signed for portable concentrator. Hiatal hernia with GERD without esophagitis UGI with reflux and start omeprazole. Relevant Medications omeprazole (PriLOSEC) [address] capsule documented in this encounter [facility] 05-12-2025 Evaluation note Diagnosis Onset Date Resolution Cerumen impaction acute May 122024 11:50am Left otitis externa noneactive May 26, 2025 11:51am [facility] Work Phone: 1(328) 612-248806-22-2025 Evaluation note* Diagnosis Onset Date Resolution Status Admit Date Cerumen impaction inactive May 122024 11:50am Left otitis externa noneactive May 26, 2025 11:51am Right ear impacted cerumen inactive July 08, 2025 2:35pm Degenerative disc disease, cervical acute August 02, 2025 10:52am Hypoglycemia acute August 022024 10:52am [facility] Work Phone: 1(938) 272-795406-06-2025 History of Present illness Narrative* Jignesh Gonsalez [...] PM EDTAssociated Problem(s): Chronic hypoxic respiratory failure (CMS/[facility]) Wean oxygen as tolerated. * Jignesh Gonsalez MD - 04/26/2025 11:45 AM EDT Images from the original note were not included. Subjective Patient ID: Nathan Cortes is a 70 y.o. male who presents for Follow-up ([facility] er f/up copd). ER follow up from [...] This Visit COPD (chronic obstructive pulmonary disease) ([facility]/HCC) - Primary Symptoms improved after treatment and monitor. Use inhalers daily. Follow with pulmonology. Will arrange for home hospital bed in order to elevate head while sleeping due to SOB. Chronic hypoxic respiratory failure (CMS/HCC) Wean oxygen as tolerated. Dysphagia Problems swallowing and check UGI. Relevant Orders [place] upper GI double contrast w KUB documented in this encounterKindred [id number] History of Present illness Narrative* MASHA Ferrari - 04/25/2025 9:00 AM EDT Pt picked up supplies documented in this encounterKindred [id number] History of Present illness Narrative* Jignesh Gonsalez MD - 04/02/2025 3:15 PM EDT Images from the original note were not included. Subjective Patient ID: Nathan Cortes is a 70 y.o. male who presents for Follow-up ([facility] hospital f/u). Hospital follow up from 03/24-03/27 [...] Wean oxygen as tolerated. documented in this encounterKindred [id number] Telephone encounter Note* Telephone Encounter - Jignesh Gonsalez MD - 03/28/2025 3:25 PM EDT Sent [facility] [id number] Miscellaneous Notes* Telephone Encounter - Jignesh Gonsalez MD - 03/28/2025 3:25 PM EDT Sent * Telephone Encounter - DARCY THOMPSON - 03/28/2025 2:42 PM EDT Insurance called states that they will not cover spirva, but they will cover incruse ellipta. clm documented in this encounterKindred [id number] Telephone encounter Note* Telephone Encounter - DARCY THOMPSON - 03/28/2025 2:42 PM EDT Insurance called states that they will not cover spirva, but they will cover incruse ellipta. clm [facility] [id number] Note Gram Stain Evaluation This specimen is of good quality and is acceptable for routine [facility] [id number] NoteGRAM STAIN EVALUATIONbacterial culture.[facility] [id number] History of Present illness Narrative* Jignesh Gonsalez [...] controlled and monitor PRN. documented in this encounterKindred [id number] [facility] Note Chief Complaint: Patient here for follow up [facility]. Underwent heart cath on 01/11/2025 with [...] needed each day., Disp: , Rfl: HYDROcodone-acetaminophen ([place]) 5-325 mg tablet, take 1 tablet by [...] or chew., Disp: 30 tablet, Rfl: 0 cxoljkjtaxrx-fbzu-cibpmgnz-folic acid (Multivitamin 50 Plus) tablet, 1 (one) [...] PSYCH: appropriate mood, affect, and judgement. INVESTIGATIONS: Echocardiogram-[facility] Name: NAZARIO CORTES Study Date: 01/11/2025 10:06 AM B/P: 142 mmHg/84 mmHg HR: Date of : 1955 Location: [facility] Height: 74 in. Age: 69 year(s) Patient Room : 3140 Weight: (more content not included)...[facility] 01-21-2025 History of Present illness Narrative* Jignesh Gonsalez MD - 01/21/2025 2:20 PM ESTAssociated Problem(s): SOB (shortness of breath) on exertion Signs of COPD and check PFTs. Start albuterol PRN. * Jignesh Gonsalez MD - 01/21/2025 2:20 PM ESTAssociated Problem(s): Coronary artery disease involving [place] coronary artery of [place] heart without angina pectoris (CMS/HCC) Symptoms improved with medication change and follow with cardiology. * Jignesh Gonsalez MD - 01/21/2025 1:45 PM EST Images from the original note were not included. Subjective Patient ID: Nathan Cortes is a 69 y.o. male who presents for Follow-up (Hospital f/up [place]). Hospital follow up from 01/09-01/13 for unstable angina. Developed chest pain and to ER. CE normal and echo normal. Continued to have pain and seen by cardiology. Concerned of unstable angina and transferred to [facility] 01/10. Heart cath performed and showed [...] Addressed This Visit Coronary artery disease involving [place] coronary artery of [place] heart without angina pectoris (CMS/HCC) - Primary Symptoms improved with medication change and follow with cardiology. SOB (shortness of breath) on exertion Signs of COPD and check PFTs. Start albuterol PRN. Relevant Medications albuterol HFA 90 mcg/act inhaler Other Relevant Orders Pulmonary Function Test documented in this encounterKindred [id number] NoteSent the AVS to [facility]02-23-2025 NotePhysical Therapy Physical Therapy Evaluation Patient Name: [...] year old male present as transfer from [facility] for chest pain. On 01/11/25, pt [...] Level of Function Prior Function Level of [place]: Independent with ADLs and functional transfers, Independent [...] 1: Independent Bed Mobilit (more content not included)...[facility] 01-13-[address] [facility]02-23-2025 NoteHospital Medicine Discharge Summary Final Discharge Diagnosis: Unstable angina KAROL History of seizures Hyperlipidemia Falls at home Obese class 2 - BMI 40 Admission Diagnosis: Unstable angina (CMS/HCC) [I20.0] Hospital course: Nazario Cortes is an 69 y.o. male who came from [facility] with Angina pectoris unstable. Patient is a 69-year-old male with the following past medical history CAD, HLD, depression, history of seizures, obstructive sleep apnea, obesity, history of bladder cancer diagnosed 2018 with tumor removal. Patient was transferred from [facility] where he has been admitted on being managed for chest pain. He was seen by cardiology and after consultation patient was transferred to [facility] for cardiac catheterization tomorrow. He states [...] consulted. WE will arrange home health through [facility]. Surgical, Invasive or Diagnostic Procedures Done [...] left radial artery was obtained. A 6 [place] glide sheath was inserted without difficulty. Bilateral [...] as: Toprol-XL Take 1 (more content not included)...[facility] 01-12-2025 Note Attestation signed by [...] to the follow-up visit Jony Webber MD, [facility] Cardiology Progress Note Subjective Subjective: Patient was seen and examined at bedside this morning. No acute overnight events. He reports intermittent chest pain which has improved as compared to initial presentation however not completely resolved. Rates 11/30, was 8. He is requiring supplemental oxygen today. He [...] Value Ventricular Rate [address] Interval 210 QRS DURATION 78 QT Interval 410 QTC CALCULATION(BAZETT) 442 P Epsom 35 R-Epsom -9 T Wave Epsom 36 Impression Sinus rhythm with 1st degree A-V block Otherwise normal ECG When compared with ECG of 20-NOV-2020 10:48, CT interval has increased Confirmed by Thomas YOUNGER, SAMEChata Garcia ([id number]) on 01/11/2025 1:02:38 PM Lab Results Component Value Date TROPONINI 0.01 01/11/2025 Transthoracic echo (TTE) complete Result Date: 01/11/2025 1 1 [facility] Heart Station [address] [place] [address] [phone] (fax) Echocardiogram-[facility] Name: NAZARIO CORTES Study Date: 01/11/2025 10:06 AM B/P: 142 mmHg/84 mmHg HR: Date of : 1955 Location: [facility] Height: 74 in. Age: 69 year(s) Patient Room: [facility] Weight: 306 lb. Gender: Male [...] PGmax 3 mmHg L (more content not included)...[facility]02-22-2025 NoteHospital Medicine Daily Progress Note - 01/12/2025 11:29 AM; Room: [facility]/3140- Admission: 01/11/2025 12:29 AM; Length of stay: 1 days THE HOSPITALIST TEAM PREFERS TO USE True Pivot CHAT FOR NON-URGENT COMMUNICATION 7AM-7PM. IF I DO NOT RESPOND WITHIN 20 MINUTES OR URGENT MATTERS, PLEASE CALL THROUGH THE COAL BAGGER. FROM 7PM-7AM, PLEASE PAGE [phone](COVR). Code Status: Full Code Barriers to Discharge: chest pain Expected Discharge Date: tomorrow? Discharge Destination: home Overview Nazario Cortes is an 69 y.o. male who came from [facility] with Angina pectoris unstable. Patient is a 69-year-old male with the following past medical history CAD, HLD, depression, history of seizures, obstructive sleep apnea, obesity, history of bladder cancer diagnosed 2018 with tumor removal. Patient was transferred from [facility] where he has been admitted on being managed for chest pain. He was seen by cardiology and after consultation patient was transferred to [facility] for cardiac catheterization tomorrow. He states [...] LDL 97 01/12/2025 No results found for: [id number] , IRON , TIBC , C3 , [...] spine. Fibrosis and sc (more content not included)...[facility]02-21-2025 Notecommunication received that Patient is reporting having multiple falls at home and is reporting spouse has a nurse Enedelia from [facility], so would like [facility] if needing HHC services. Preliminary referral sent to [facility], via [employer].[facility]02-21-2025 Note01/11/25 1606 Admission Assessment Questions Verify insurance [...] Status Interested Does the patient have a briefcase sewer assigned to them through their insurance? No Living Arrangement (Current/Prior to Hospitalization) Private residence (lives at home with ) Does the patient have history of HHC or SNF? Yes (hx of HHC not active, when patient use to live in [place], patient stated his kadi has eileen (nurses name is enedelia)) Assistive Device Other [...] link and activate MyChart? MyChart already active [facility]02-21-2025 Note-Patient pain control. -Patient's hydrocodone 5/325 as needed -Continue other home medications per reconciliation Maintain DVT prophylaxis DVT protocols GI protection Protonix Monitor labs and correct abnormalities Discussed the plan of care with patient's nurse and with the patient himself and he is in agreement.[facility]02-21-2025 Note-Continue statins.[facility]02-21-2025 Note-Treat with statins -Manage also with nitrates -Aspirin -Consult cardiology and prep for heart cath later on today.[facility]02-21-2025 Note-Seizures currently stable resume and reconcile [facility] Note-Chronic problem we will continue to [facility]02-21-2025 Note-Use nitroglycerin and nitrates -N.p.o. after midnight -Will need to proceed to have cath tomorrow -Consult cardiology.[facility]02-21-2025 NoteHospital Medicine History and Physical 01/11/2025 1:38 AM THE HOSPITALIST TEAM PREFERS TO USE [employer] FOR NON-URGENT COMMUNICATION 7AM-7PM. IF I DO NOT RESPOND WITHIN 20 MINUTES OR URGENT MATTERS, PLEASE CALL THROUGH THE COAL BAGGER. FROM 7PM-7AM, PLEASE PAGE [phone](COVR). Chief Complaint No chief complaint on file. History of Present Illness Nazario Cortes is an 69 y.o. male who came from [facility] with Angina pectoris unstable. Patient is a 69-year-old male with the following past medical history CAD, HLD, depression, history of seizures, obstructive sleep apnea, obesity, history of bladder cancer diagnosed 2018 with tumor removal. Patient was transferred from [facility] where he has been admitted on being managed for chest pain. He was seen by cardiology and after consultation patient was transferred to [facility] for cardiac catheterization tomorrow. He states [...] current laboratory findings are available here at [facility]. Review of System and Physical Exam [...] sleep apnea comes seen on transfer from [facility] with unstable angina. Patient is being prepped for cardiac catheterization tomorrow by cardiology. Assessment & Plan Unstable angina (CMS/HCC) -Use nitroglycerin and nitrates -N.p.o. after midnight -Will need to proceed to have cath tomorrow -Consult cardiology. Coronary arteriosclerosis -Treat with statins -Manage also with nitrates -Aspirin -Consult cardiology and prep for heart cath later on today. Dyslipidemia -Continue statins. Malignant neoplasm of urinary bladder (CMS/HCC) -Chronic problem we will continue to monitor Seizure disorder (CMS/HCC) -Seizures currently stable resume and reconcile home [...] this hospital stay by a member of [facility]. Past Medical History Past Medical History: Diagnosis Date Bladder cancer (CMS/HCC) around 1997 Cholelithiasis Colon polyp Depression Dyslipidemia Hearing loss Left foot drop Peripheral neuropathy Seizure disorder ([facility]) TIA (transient ischemic (more content not included)...[facility]01-29-2025 History of Present illness Narrative* Amrik Pérez [...] of urinary bladder (CMS/HCC) 10/26/2023 Seizure disorder ([facility]/HCC) 10/26/2023 Coronary arteriosclerosis ([facility]) 07/21/2020 Class 3 severe obesity due to excess calories with serious comorbidity and body mass index (BMI) of40.0 to 44.9 in adult ([facility]) 01/12/2021 Encounter for long-term current use of medication 11/29/2023 Screening PSA (prostate specific antigen) 11/29/2023 Chest pain due to CAD ([facility]) 01/11/2024 KAROL (obstructive sleep apnea) 02/21/2024 Bilateral [...] History: Diagnosis Date Cataracts, bilateral 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 documented in this encounterKindred [id number] History of Present illness Narrative* Jose M Rea DO - 11/27/2024 10:15 AM EST General Surgery [...] you, Ashley Rea DO documented in this encounterKindred [id number] History of Present illness Narrative* Jignesh Gonsalez [...] Problem List Items Addressed This Visit Dyslipidemia ([facility]/HCC) Relevant Orders Lipid panel Major depressive disorder, [...] Advised not to smoke. documented in this encounterKindred [id number] Telephone encounter Note* Telephone Encounter - ANNABELLE Bueno - 11/06/2024 1:01 PM EST Spoke to Janet, Chart was audited from 05/20/23 and needed my signature on the document.. added and faxed to [facility]. [facility] Work Phone: 1(911) 779-350412-17-2024 Miscellaneous Notes* Telephone Encounter - ANNABELLE Bueno - 11/06/2024 1:01 PM EST Spoke to Janet, Chart was audited from 05/20/23 and needed my signature on the document.. added and faxed to [employer]. * Telephone Encounter - Mallory Knight - 11/06/2024 9:02 AM EST Her name is Janet that called not Neet[facility]. * Telephone Encounter - Mallorymary Knigth - 11/06/2024 8:57 AM EST [facility] from [facility] called and left vm that she needs a return call. She stated she has called a few times and has not received a call back regarding this patient. I tried to call back and it just kept ringing. Please call her back at [phone]. documented in this encounterKindred [id number] Telephone encounter Note* Telephone Encounter - Mallory Knight - 11/06/2024 9:02 AM EST Her name is Janet that called not [facility]. Kindred [id number] Telephone encounter Note* Telephone Encounter - Mallorymary Knight - 11/06/2024 8:57 AM EST Neetu from [facility] called and left vm that she needs a return call. She stated she has called a few times and has not received a call back regarding this patient. I tried to call back and it just kept ringing. Please call her back at [phone]. Kindred [id number] History of Present illness Narrative* MASHA Ferrari - 10/30/2024 2:15 PM EST Pt picked up supplies documented in this encounterKindred [id number] History of Present illness Narrative* Jignesh Gonsalez [...] spasms. Continue PT exercises. Relevant Medications HYDROcodone-acetaminophen ([place]) 5-325 MG tablet Chronic rhinosinusitis Continued congestion [...] referral to General Surgery documented in this encounterKindred [id number] NoteSUBJECTIVE: Chief complaint: Back pain. History of [...] about 6 or 7 years ago, in [facility] and had injections, which he states he has made his symptoms worse. Not interested in pursuing additional injections. Has had medicare insurance specialist many years ago for previous symptoms of [...] Left foot drop Peripheral neuropathy Seizure disorder ([facility]) TIA (transient ischemic attack) Past [...] needed each day., Disp: , Rfl: HYDROcodone-acetaminophen ([place]) 5-325 mg tablet, take 1 tablet by mouth four times a day if needed for severe pain for up to 7 days, Disp: , Rfl: meclizine (Antivert) 25 mg tablet, take 1 tablet by mouth four times a day if needed for dizziness, (more content not included)...[facility]01-31-2024 Miscellaneous Notes* Telephone Encounter - Marissa Aguilera - 12/21/2023 3:24 PM EST Received faxed referral for patient to be seen for Lumbar. Called and spoke to patient, stated he has an appointment set up already at [facility] office. [facility] Telephone encounter Note* Telephone Encounter - Marissa Aguilera - 12/21/2023 3:24 PM EST Received faxed referral for patient to be seen for Lumbar. Called and spoke to patient, stated he has an appointment set up already at [facility] office. [facility] [id number] Evaluation note* Encounter Date Diagnosis Assessment Notes [...] fusion of cervical spine (ICD-10 - Z98.1) [facility] Other 06-09-2023 Hospital Discharge instructions Follow Up Care 04/29/2023 15:31:28 With:RABIA GAN, Chris Brizuela, URL Address: [facility] [address] , [place] [address]- [phone] When: Unknown [facility] 11-10-2022 NotePROCEDURE: XR FOOT RT MIN [...] Electronically authenticated by: KELL BLANDON Date: 2022-09-30 08:07[facility]10-03-2022 NotePROCEDURE: XR KNEE LT 4V or [...] Electronically authenticated by: TRINIDAD BEAVER Date: 2022-08-23 14:[address] [place], [place] [address]5310-03-2022 NotePROCEDURE: XR KNEE LT 4V or >, [...] Electronically authenticated by: TRINIDAD BEAVER Date: 2022-08-23 14:[facility]10-03-2022 NotePROCEDURE: XR KNEE LT 4V or [...] Electronically authenticated by: TRINIDAD BEAVER Date: 2022-08-23 14:[address] [place], [place]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
[2025-08-23 09:16] LABS: Hematocrit 38.7 % (42.0-54.0); Hemoglobin 13.3 g/dL (14.0-18.0); Immature Granulocytes Abs Auto 0.04 10^3/uL (0.00-0.03); Immature Granulocytes Pct Auto 0.6 % (0.0-0.5); Lymphocytes Absolute Auto 1.0 10^3/uL (1.2-3.8); Mean Corpuscular HGB Conc 34.4 g/dL (29.9-35.2); Mean Corpuscular Hemoglobin 34.2 pg (25.9-34.0); Mean Corpuscular Volume 99.5 fL (80.0-94.0); Platelet Count 184 10^3/uL (150-450); Red Blood Count 3.89 10^6/uL (4.70-6.10); White Blood Count 7.0 10^3/uL (4.0-11.0)
[2025-08-23 09:29] LABS: Alanine Aminotransferase 38 U/L (16-63); Albumin Globulin Ratio 0.5; Albumin Level 3.1 g/dL (3.4-5.0); Alkaline Phosphatase 139 U/L (46-116); Anion Gap 13.7; Aspartate Amino Transferase 27 U/L (15-37); Blood Urea Nitrogen 20.0 mg/dL (7.0-18.0); Calcium 8.6 mg/dL (8.5-10.1); Carbon Dioxide 25.7 mmol/L (21.0-32.0); Chloride 103 mmol/L (98-107); Estimated GFR (African America >60 (>=60 mL/min/1.73m^2); Estimated GFR (Non-African Ame >60 (>=60 mL/min/1.73m^2); Globulin 5.7 g/dL; Glucose 106 mg/dL (74-106); Potassium 4.4 mmol/L (3.5-5.1); Sodium 138 mmol/L (136-145); Total Protein 8.8 g/dL (6.4-8.2)
== END 2025-08-23 08:40 | disposition home or self-care (01) ==
LOC: LAB 08:41
PROVIDERS: PCP Family Medicine; Visit Provider Family Medicine
DX: E16.2 Hypoglycemia, unspecified (principal); Z79.899 Other long term (current) drug therapy
CPT/HCPCS: 36415; 80053; 83036; 83525; 85025